=== PATIENT | female | born 1970 | race Caucasian/White ===

== ENCOUNTER 2019-05-30 21:57 | Emergency (ER) | payer SELFPAY ==
[~2019-05-30] VITALS: Ht 157 cm; Wt 133.0 kg
[~2019-05-30 21:57] MED LIST: ATOR20TA66 PO; CEPH500C PO; CPR250T PO; CPR500T PO; CYCL10TA9; DULO30CA; DULO60CA6; FURO40TA4 PO; GBPN600T PO; HUM100VI4 SQ; IBP600T1 PO; INSU100I10 SQ; INSU100I14 SC; IPRA0.2S18 IH; IPRA4AER IH; LEVA0.31; LORA10TA7 PO; LURA40TA PO; LURA80TA PO; MECL25TA56 PO; MELO7.5T PO; NAPR-243; NF-CIPROHC RIGHT EAR; NF-FLON16G; NITR-65 PO; NITR100C3 PO; NORT50CA3 PO; NYST1POW15 TOP; OLN10T PO; OXCA150T PO; OXYC-281; OXYC20TA63; PARO20TA4 PO; POTA10TA36 PO; RT-COMBINH; SUMA10PO PO; SUMA1TAB; TIOT18CA IH; TMZP15C PO; TOPI100T PO; TRAM50TA2 PO; TRZ100T PO; WRF10T PO; gabapentin; risperdal; warfarin; zyprexa
[2019-05-30 22:46] LABS: CLARITY,URINE CEAR; COLOR,URINE YELLOW; GLUCOSE, URINE (UA) NEGATIVE (NEGATIVE); KETONES,URINE NEGATIVE (NEGATIVE); PROTEIN,URINE NEGATIVE (NEGATIVE)
[2019-05-30 22:47] LABS: AMORPHOUS SEDIMENT,UR FEW AMOR PHOSPHATE /LPF; BACTERIA,URINE FEW /HPF; BILIRUBIN,URINE NEGATIVE (NEGATIVE); LEUKOCYTE ESTERASE ,URINE NEGATIVE (NEGATIVE); NITRITE,URINE NEGATIVE (NEGATIVE); WBC,URINE RARE /HPF
--- NOTE | 2019-05-30 23:25 | ED Back Pain ---
General Chief Complaint: Back Problems Stated Complaint: BACK PAIN Nursing Triage Note: PT COMPLAINING OF LOWER BACK PAIN. PT HAS CHRONIC PAIN AND TOOK OXYCODONE 4 HOURS AGO WITH NO RELIEF Nursing Sepsis Screen: No Definite Risk Source of Information: Patient History of Present Illness Date Seen by Provider: May 30, 2019 Time Seen by Provider: 23:25 Initial Comments 49-year-old female presenting with complaints of increased low back pain. She has chronic low back pain and takes oxycodone 7.5 mg for this. However this was not controlling her pain tonight. She also has been having nausea vomiting and diarrhea in the last 2 days. She was unsure if this is caused a flareup of her symptoms. She does have a history of kidney stones as well. She denies any pain radiating into her legs. She has no new neurologic symptoms such as numbness or weakness in her legs. She's had no loss of bowel or bladder control. Allergies and Home Medications Allergies Coded Allergies: Spinach *RETIRED-08/25/10 (Unverified Allergy, Mild, 08/01/09) doxycycline (Unverified Allergy, Mild, nauseated, 08/01/09) Home Medications Atorvastatin 20 Mg Tablet, 20 MG PO HS, (Reported) Cephalexin Monohydrate 500 Mg Capsule, 1 EACH PO QID, (Reported) Ciprofloxacin 500 Mg Tablet, 1 TAB PO BID FOR INFECTION Prescribed by: BRAULIO NASH on 04/24/132100 Furosemide 40 Mg Tablet, 1 EACH PO BID, (Reported) PT TAKES 40MG PO BID Gabapentin 600 Mg Tab, 600 MG PO QID, (Reported) Hum Insulin Nph/Reg Insulin Hm 10 Ml Vial, 15 UNITS SQ TID, (Reported) Insulin Glargine,Hum.rec.anlog 300 Unit/3 Ml Insuln.pen, 10 UNITS SQ HS Prescribed by: NNEKA ROBINS on 12/14/12 1141 Ipratropium [place] 0.5 Mg/2.5 Ml Nebu, 0.5 MG IH Q6H PRN, (Reported) Ipratropium/Albuterol Sulfate 4 Gm Aer.w.adap, 1 PUFF IH QID, (Reported) Loratadine 10 Mg Tablet, 10 MG PO DAILY, (Reported) Lurasidone Hcl 80 Mg Tablet, 80 MG PO HS, (Reported) Lurasidone Hcl 40 Mg Tablet, 40 MG PO DAILY, (Reported) TAKES IN AM DAILY Meclizine Hcl 25 Mg Tablet, 1 EACH PO TID PRN, (Reported) Meloxicam 7.5 Mg Tablet, 7.5 MG PO DAILY, (Reported) Nitrofurantoin/Nitrofuran Mac 100 Mg Capsule, 100 MG PO BID Prescribed by: GUALBERTO DOUGHERTY on 04/14/13 175 Nystatin 1 Each Powder.ea., 0 TOP BID PRN SPRINKLE ON AFFECTED AREA Prescribed by: GUALBERTO DOUGHERTY on 04/14/13 175 Olanzapine 10 Mg Tab, 10 MG PO BID PRN for ANXIETY, (Reported) Oxcarbazepine 150 Mg Tablet, 300 MG PO DAILY, (Reported) Oxycodone HCl/Acetaminophen 1 Each Tablet, 1 EACH PO Q4H PRN for PAIN-SEVERE (8- 10) Prescribed by: TASH ALARCON on 05/31/19 0058 Paroxetine Hcl 20 Mg Tablet, 20 MG PO HS, (Reported) Potassium Chloride 10 Meq Tab.prt.sr, 1 EACH PO BID WITH MEALS, (Reported) Sumatriptan 10 Gm Powder, 100 MG PO BID PRN, (Reported) Tiotropium [place] 1 Inh Aerp, 1 CAP IH DAILY, (Reported) 18 MCG CAPS/ONE INHALED DAILY Topiramate 100 Mg Tab, 200 MG PO HS, (Reported) PT TAKES 200MG TWICE DAILY AND 100MG AT NOON Topiramate 100 Mg Tab, 100 MG PO TID, (Reported) Tramadol Hcl 50 Mg Tablet, 100 MG PO Q6H PRN, (Reported) Trazodone Hcl 100 Mg Tab, 200 MG PO HS, (Reported) Warfarin Sodium 10 Mg Tablet, 10 MG PO DAILY@1800 Prescribed by: NNEKA ROBINS on 12/14/12 1141 Patient Home Medication List Home Medication List Reviewed: Yes Review of Systems Constitutional: No chills; fever (subjectively felt hot), malaise EENTM: no symptoms reported Respiratory: cough (chronic smoker's cough), dyspnea on exertion (chronic), short of breath (no more short of breath than normal) Cardiovascular: No chest pain Gastrointestinal: No abdominal pain; diarrhea, nausea, vomiting Genitourinary: no symptoms reported; No incontinence Musculoskeletal: see HPI Skin: no symptoms reported Psychiatric/Neurological: See HPI Past Vcsaaca-Ywhyxz-Fuxvgb Hx Past Med/Social Hx: Reviewed Nursing Past Med/Soc Hx Patient Social History Alcohol Use: Denies Use Recreational Drug Use: No Smoking Status: Current Everyday Smoker Type Used: Cigarettes 2nd Hand Smoke Exposure: Yes Recent Foreign Travel: No Contact w/Someone Who Travel: No Recent Infectious Disease Expo: No Recent Hopitalizations: No Physical Abuse: No Sexual Abuse: No Mistreated: No Fear: No Immunizations Up To Date Date of Pneumonia Vaccine: Dec 14, 2012 Date of Influenza Vaccine: Mar 04, 2013 Past Medical History Surgeries: Yes (HIP, suprapubic catheter) Appendectomy, Gallbladder, Hysterectomy Respiratory: Yes Asthma, Pneumonia, Chronic Bronchitis, Pulmonary Embolism, COPD, Emphysema Cardiac: No Neurological: Yes Neuropathy 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 Disorders: No 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 Sexually Transmitted Disease: No HIV/AIDS: No Genitourinary: Yes Kidney Stones, Neurogenic Bladder, UTI-Chronic Gastrointestinal: Yes Abdominal Hernia, Gastroesophageal Reflux, Chronic Constipation, Irritable Bowel Musculoskeletal: Yes Arthritis, Fibromyalgia, Back Injury, Chronic Back Pain, Fractures, Spasms Endocrine: Yes Diabetes, Insulin dep, Hypothyroidsim HEENT: No Hearing Impairment: Hard of Hearing Cancer: Yes Ovarian Psychosocial: Yes ADD/ADHD, Bipolar, Schizophrenia Integumentary: No Blood Disorders: No Family Medical History No Pertinent Family Hx Physical Exam Vital Signs Vital Signs - First Documented 05/30/19 22:05 Temp 37.1 Pulse 94 Resp 22 B/P (MAP) 150/89 (109) Pulse Ox 96 O2 Delivery Room Air Capillary Refill : Less Than 3 Seconds Height, Weight, BMI Height: '" Weight: 275lbs. oz. 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 Tested Skin: Normal Color, Warm/Dry Progress/Results/Core Measures Results/Orders Lab Results Laboratory Tests Test 05/30/19 10:29 Range/Units Urine Color YELLOW Urine Clarity CEAR Urine pH 7.0 5-9 Urine Specific Luther 1.020 1.016-1.022 Urine Protein NEGATIVE NEGATIVE Urine Glucose (UA) NEGATIVE NEGATIVE Urine Ketones NEGATIVE NEGATIVE Urine Nitrite NEGATIVE NEGATIVE Urine Bilirubin NEGATIVE NEGATIVE Urine Urobilinogen 0.2 < = 1.0 MG/DL Urine Leukocyte Esterase NEGATIVE NEGATIVE Urine RBC (Auto) NEGATIVE NEGATIVE Urine RBC NONE /HPF Urine WBC RARE /HPF Urine Squamous Epithelial Cells 2-5 /HPF Urine Crystals PRESENT H /LPF Urine Amorphous Sediment FEW ALAN PHOSPHATE H /LPF Urine Bacteria FEW H /HPF Urine Casts NONE /LPF Urine Mucus NONE /LPF Urine Culture Indicated NO My Orders Orders - TASH ALARCON MD Ua Culture If Indicated (05/30/19 22:21) Morphine Injection (Morphine Injection (05/30/19 23:40) Ct Abd/Pelvis Wo(Kidney Stone) (05/30/19 23:45) Vital Signs/I&O 05/30/19 05/31/19 22:05 00:55 Temp 37.1 Pulse 94 90 Resp 22 20 B/P (MAP) 150/89 (109) 155/95 Pulse Ox 96 95 O2 Delivery Room Air Room Air Blood Pressure Mean: 109 Progress Progress Note #1: Progress Note Obtain urinalysis to look for signs of infection or blood to indicate that there was a kidney stone or UTI that might be contributing to her low back pain. With her having recent nausea vomiting and diarrhea she may have flared up her back pain from that. Will obtain a CT scan to look for kidney stones or acute change in her lumbar spine to cause her symptoms as well. She states that she does tolerate morphine so will give a dose of 10 mg IM morphine to try and help with her low back pain. Progress Note #2: Time: 00:[address] scan does not show any acute findings per radiology report from [facility] Dr. Marino Jenkins. She had no kidney stone seen. She has no acute change in the Lumbar spine. She has some increased stool in colon but no obstruction or blockage. No acute finding to indicate any pathology to cause her increased exacerbation of low back pain. will increase her med from 7.5 to 10 mg of oxycodone for the next 3 days and have her check back with pcp. If continued symptoms she may need to see pain management for injections or other pain management options Diagnostic Imaging Diagonstic Imaging: CT Plain Films/CT/US/NM/MRI: abdomen, pelvis Comments Impression no acute findings Radiologist: Marino Jenkins MD. Read at 0039 and faxed at 0090 Reviewed: Reviewed [place] Study Departure Impression Primary Impression: Acute exacerbation of chronic low back pain Additional Impression: Nausea, vomiting and diarrhea Disposition: HOME, SELF-CARE Condition: Stable Departure-Patient Inst. Decision time for Depature: 00:53 Referrals: [facility] (PCP/Family) Primary Care Physician Patient Instructions: Low Back Pain (DC), MANAGING YOUR CHRONIC PAIN Add. Discharge Instructions: Try the higher dose of pain medicine for the next day or two and then check with your primary provider Sunday about your symptoms if not improving You may also try alternating ice and heat to your low back to help with inflammation and with your low back pain. If things persist your primary provider may need to refer you to pain management for injections again or to look into other pain management options. All discharge instructions reviewed with patient and/or family. Voiced understanding. Scripts Oxycodone HCl/Acetaminophen (Oxycodone-Acetaminophen 10-325) 1 Each Tablet 1 EACH PO Q4H PRN for PAIN-SEVERE (8-10) MDD 3 for 3 Days, #18 TAB 0 Refills Prov: TASH ALARCON MD 05/31/19 TASH ALARCON MD May 30, 2019 23:25
[2019-05-30] MEDS ORDERED: morphine INJ 10 MG/ML 1ML (SYR OR VIAL) IM STA (23:40)
[2019-05-31 00:55] VITALS: BP 155/95
[2019-05-31] MEDS ORDERED: OXYC-465 PO (00:58)
--- NOTE | 2019-05-31 06:16 | Diagnostic Imaging Report ---
PROCEDURE: CT urinary tract, rule out kidney stone. TECHNIQUE: Multiple contiguous axial images were obtained through the abdomen and pelvis without the use of intravenous contrast. Auto Exposure Controls were utilized during the CT exam to meet ALARA standards for radiation dose reduction. INDICATION: Low back pain. The lung bases are clear. The liver is unremarkable. The gallbladder is surgically absent. No biliary ductal dilatation is seen. The pancreas and spleen are unremarkable. No adrenal mass is detected. Kidneys are without calculi or hydronephrosis. Aorta is non-aneurysmal. There appears to be a filter within the inferior vena cava. The small and large bowel loops are normal caliber. No obstruction is seen. There is no free fluid or fluid collection in the abdomen or pelvis. The bladder is unremarkable. Postsurgical changes bilateral hips are seen. IMPRESSION: Unremarkable noncontrast CT of the abdomen and pelvis. No acute feature is detected. Dictated by: Dictated on workstation # [id number]
== END 2019-05-31 01:01 | disposition home or self-care (01) ==
LOC: EDUNIT# 21:57 → ER FS 22:03
DX: G89.29 Other chronic pain (principal); M54.5 Low back pain; R11.2 Nausea with vomiting, unspecified; R19.7 Diarrhea, unspecified; J43.9 Emphysema, unspecified; E11.40 Type 2 diabetes mellitus with diabetic neuropathy, unspecified; K21.9 Gastro-esophageal reflux disease without esophagitis; K58.9 Irritable bowel syndrome, unspecified; M79.7 Fibromyalgia; E03.9 Hypothyroidism, unspecified; F31.9 Bipolar disorder, unspecified; F90.9 Attention-deficit hyperactivity disorder, unspecified type; F20.9 Schizophrenia, unspecified; F17.210 Nicotine dependence, cigarettes, uncomplicated; Z86.711 Personal history of pulmonary embolism; Z85.43 Personal history of malignant neoplasm of ovary; Z87.442 Personal history of urinary calculi; Z87.440 Personal history of urinary (tract) infections; Z88.1 Allergy status to other antibiotic agents; Z79.4 Long term (current) use of insulin; Z90.49 Acquired absence of other specified parts of digestive tract; Z90.710 Acquired absence of both cervix and uterus
CPT/HCPCS: 74176; 81000; 96372

== ENCOUNTER 2019-07-15 21:46 | Emergency (ER) | payer SELFPAY ==
[~2019-07-15] VITALS: Ht 157.4 cm; Wt 144.0 kg
[~2019-07-15 21:46] MED LIST changes: +OXYC-465 PO
[2019-07-15] MEDS ORDERED: ONDANSETRON 4 MG (ZOFRAN) ORAL DISSOLVE TAB PO STA (21:53)
--- NOTE | 2019-07-15 21:56 | ED Headache ---
General Chief Complaint: General Problems/Pain Stated Complaint: HAND/ARM/FEET PAIN,HEADACHE Source: patient Exam Limitations: no limitations History of Present Illness Date Seen by Provider: Jul 15, 2019 Time Seen by Provider: 21:50 Initial Comments The patient is a morbidly obese 49-year-old female who presents for evaluation of headache over the last 6 hours or so. She states that she gets frequent headaches chronically. She takes warfarin for a history of blood clots and denies any recent head injury. She is also complaining of acute on chronic hand and foot pain which she describes as a neuropathy which she chronically has. She took a oxycodone but states it did not help very much for her headache. She brandon es this chronically for back pain. She denies fevers or chills, neck pain or neck stiffness, vision changes, focal weakness or numbness, chest pain or shortness of breath, abdominal or back pain, palpitations, or syncope. She is alert and oriented 4, calm, and appears to be in no distress this time. Timing/Duration: 4-6 hours Severity/Quality: moderate Location: frontal Prior Headaches/Recent Trauma: frequent headaches, chronic headaches Associated Symptoms: denies symptoms Allergies and Home Medications Allergies Coded Allergies: Spinach *RETIRED-08/25/10 (Unverified Allergy, Mild, 08/01/09) doxycycline (Unverified Allergy, Mild, nauseated, 08/01/09) Home Medications Atorvastatin 20 Mg Tablet, 20 MG PO HS, (Reported) Cephalexin Monohydrate 500 Mg Capsule, 1 EACH PO QID, (Reported) Ciprofloxacin 500 Mg Tablet, 1 TAB PO BID FOR INFECTION Prescribed by: BRAULIO NASH on 04/24/132100 Furosemide 40 Mg Tablet, 1 EACH PO BID, (Reported) PT TAKES 40MG PO BID Gabapentin 600 Mg Tab, 600 MG PO QID, (Reported) Hum Insulin Nph/Reg Insulin Hm 10 Ml Vial, 15 UNITS SQ TID, (Reported) Insulin Glargine,Hum.rec.anlog 300 Unit/3 Ml Insuln.pen, 10 UNITS SQ HS Prescribed by: NNEKA ROBINS on 12/14/12 1141 Ipratropium [place] 0.5 Mg/2.5 Ml Nebu, 0.5 MG IH Q6H PRN, (Reported) Ipratropium/Albuterol Sulfate 4 Gm Aer.w.adap, 1 PUFF IH QID, (Reported) Loratadine 10 Mg Tablet, 10 MG PO DAILY, (Reported) Lurasidone Hcl 80 Mg Tablet, 80 MG PO HS, (Reported) Lurasidone Hcl 40 Mg Tablet, 40 MG PO DAILY, (Reported) TAKES IN AM DAILY Meclizine Hcl 25 Mg Tablet, 1 EACH PO TID PRN, (Reported) Meloxicam 7.5 Mg Tablet, 7.5 MG PO DAILY, (Reported) Nitrofurantoin/Nitrofuran Mac 100 Mg Capsule, 100 MG PO BID Prescribed by: GUALBERTO DOUGHERTY on 04/14/13 175 Nystatin 1 Each Powder.ea., 0 TOP BID PRN SPRINKLE ON AFFECTED AREA Prescribed by: GUALBERTO DOUGHERTY on 04/14/13 175 Olanzapine 10 Mg Tab, 10 MG PO BID PRN for ANXIETY, (Reported) Oxcarbazepine 150 Mg Tablet, 300 MG PO DAILY, (Reported) Oxycodone HCl/Acetaminophen 1 Each Tablet, 1 EACH PO Q4H PRN for PAIN-SEVERE (8- 10) Prescribed by: TASH ALARCON on 05/31/19 0058 Paroxetine Hcl 20 Mg Tablet, 20 MG PO HS, (Reported) Potassium Chloride 10 Meq Tab.prt.sr, 1 EACH PO BID WITH MEALS, (Reported) Sumatriptan 10 Gm Powder, 100 MG PO BID PRN, (Reported) Tiotropium [place] 1 Inh Aerp, 1 CAP IH DAILY, (Reported) 18 MCG CAPS/ONE INHALED DAILY Topiramate 100 Mg Tab, 200 MG PO HS, (Reported) PT TAKES 200MG TWICE DAILY AND 100MG AT NOON Topiramate 100 Mg Tab, 100 MG PO TID, (Reported) Tramadol Hcl 50 Mg Tablet, 100 MG PO Q6H PRN, (Reported) Trazodone Hcl 100 Mg Tab, 200 MG PO HS, (Reported) Warfarin Sodium 10 Mg Tablet, 10 MG PO DAILY@1800 Prescribed by: NNEKA ROBINS on 12/14/12 1141 Patient Home Medication List Home Medication List Reviewed: Yes Review of Systems Review of Systems Constitutional: dizziness Eyes: No Symptoms Reported Ears, Nose, Mouth, Throat: no symptoms reported Respiratory: no symptoms reported Cardiovascular: no symptoms reported Gastrointestinal: no symptoms reported Genitourinary: no symptoms reported Musculoskeletal: no symptoms reported Skin: no symptoms reported Psychiatric/Neurological: Headache All Other Systems Reviewed Negative Unless Noted: Yes Past Kxxfglc-Nximem-Hzwoyp Hx Past Med/Social Hx: Reviewed Nursing Past Med/Soc Hx Patient Social History Type Used: Cigarettes 2nd Hand Smoke Exposure: Yes Recent Foreign Travel: No Contact w/Someone Who Travel: No Recent Hopitalizations: No Immunizations Up To Date Date of Pneumonia Vaccine: Dec 14, 2012 Date of Influenza Vaccine: Mar 04, 2013 Past Medical History Surgeries: Yes (HIP, suprapubic catheter) Appendectomy, Gallbladder, Hysterectomy Respiratory: Yes Asthma, Pneumonia, Chronic Bronchitis, Pulmonary Embolism, COPD, Emphysema Cardiac: No Neurological: Yes Neuropathy 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 Disorders: No 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 Sexually Transmitted Disease: No HIV/AIDS: No Genitourinary: Yes Kidney Stones, Neurogenic Bladder, UTI-Chronic Gastrointestinal: Yes Abdominal Hernia, Gastroesophageal Reflux, Chronic Constipation, Irritable Bowel Musculoskeletal: Yes Arthritis, Fibromyalgia, Back Injury, Chronic Back Pain, Fractures, Spasms Endocrine: Yes Diabetes, Insulin dep, Hypothyroidsim HEENT: No Hearing Impairment: Hard of Hearing Cancer: Yes Ovarian Psychosocial: Yes ADD/ADHD, Bipolar, Schizophrenia Integumentary: No Blood Disorders: No Family Medical History No Pertinent Family Hx Physical Exam Vital Signs Vital Signs - First Documented 07/15/19 21:52 Temp 36.6 Pulse 111 Resp 20 B/P (MAP) 163/103 (123) Pulse Ox 95 O2 Delivery Room Air Capillary Refill : Height, Weight, BMI Height: '" Weight: 275lbs. oz. 124.616491yh; 53.00 BMI Method:Stated General Appearance: WD/WN, no apparent distress, obese HEENT: PERRL/EOMI, pharynx normal Neck: non-tender, full range of motion, supple Cardiovascular: regular rate, rhythm, no edema, no JVD Respiratory: lungs clear, normal breath sounds, no respiratory distress, no accessory muscle use Gastrointestinal: normal bowel sounds, non tender, soft Extremities: normal range of motion, non-tender, normal inspection, no pedal edema Psychiatric: alert, oriented x 3 Crainal Nerves: normal hearing, normal speech, PERRL Motor/Sensory: no motor deficit, no sensory deficit Skin: normal color, warm/dry Progress/Results/Core Measures Results/Orders Lab Results Laboratory Tests Test 07/15/19 22:23 07/15/19 22:25 Range/Units Glucometer 184 H 70-110 MG/DL My Orders Orders - KAYLEE GIVENS DO Ct Head Wo (07/15/19 21:52) Meclizine Tablet (Antivert Tablet) (07/15/19 22:00) Ondansetron Oral Dissolve Tab (Zofran (07/15/19 21:53) Diphenhydramine Tablet (Benadryl Tablet) (07/15/19 22:00) Protime With Inr (07/15/19 21:56) Accucheck Stat ONCE (07/15/19 21:56) Medications Given in ED Current Medications Medications Dose Ordered Sig/Kurtis Route Start Time Stop Time Status Last Admin Dose Admin Diphenhydramine HCl 25 mg ONCE ONCE PO 07/15/19 22:00 07/15/19 22:01 DC 07/15/19 21:58 25 MG Meclizine HCl 25 mg ONCE ONCE PO 07/15/19 22:00 07/15/19 22:01 DC 07/15/19 21:59 25 MG Vital Signs/I&O 07/15/19 21:52 Temp 36.6 Pulse 111 Resp 20 B/P (MAP) 163/103 (123) Pulse Ox 95 O2 Delivery Room Air Progress Progress Note : Progress Note @2245 - patient informed of lab and imaging results which are acutely unremarkable. Workup today fails reveal any emergent pathology. The patient sta bryce that she is feeling much better and is asking to be discharged home. She is stable for discharge at this time. Departure Impression Primary Impression: Headache Disposition: 01 HOME, SELF-CARE Condition: Stable Departure-Patient Inst. Referrals: [facility] (PCP/Family) Primary Care Physician Patient Instructions: Headache, Adult, Chronic Pain (DC) Add. Discharge Instructions: Follow-up with your doctor in the next 2-3 days. Return to the emergency Department immediately for new or worsening symptoms. KAYLEE GIVENS DO Jul 15, 2019 21:56
[2019-07-15] MEDS ORDERED: diphenhydrAMINE 25 MG TAB (BENADRYL) PO ONE (22:00)
[2019-07-15] MEDS ORDERED: MECLIZINE 25 MG (ANTIVERT) TAB PO ONE (22:00)
[2019-07-15 22:52] LABS: PROTHROMBIN TIME PATIENT 13.5 SEC (12.2-14.7)
[2019-07-15 22:54] VITALS: BP 163/103
--- NOTE | 2019-07-16 07:36 | Diagnostic Imaging Report ---
PROCEDURE: CT head without contrast. TECHNIQUE: Multiple contiguous axial images were obtained through the brain without the use of intravenous contrast. Auto Exposure Controls were utilized during the CT exam to meet ALARA standards for radiation dose reduction. INDICATION: Decreased level of consciousness. Comparison with 12/13/2012. FINDINGS: The ventricles and cortical gyral pattern are normal. There is no intracranial hemorrhage or mass effect. Basal cisterns are clear. Pituitary is not enlarged. Mastoid air cells are clear. Paranasal sinuses clear where visualized. No calvarial fractures. IMPRESSION: Negative CT head without contrast. These findings are concordant with the preliminary report. Dictated by: Dictated on workstation # [id number]
--- OUTSIDE RECORDS SUMMARY | 2019-07-25 20:20 | XMS REPORT | Clinical Summary ---
Author Author [facility] Organization [facility] Address Unknown Phone Unavailable Care Team Providers Care Cut Lace Machine Operator Name Role Phone PP Unavailable Allergies No Known Allergies Medications End Date Status Medication Sig Dispensed Refills Start Date Active tiotropium (SPIRIVA Inhale 18 mcg 0 HANDIHALER) 18 MCG into the inhalation capsule lungs daily. Active loratadine (CLARITIN) 10 Take 10 mg by 0 MG tablet mouth nightly as needed. Active temazepam (RESTORIL) 15 Take 30 mg by 0 MG capsule mouth nightly. Active potassium chloride Take 10 mEq 0 (K-DUR,KLOR-CON) 10 MEQ by mouth 2 tablet (two) times daily. Active gabapentin (NEURONTIN) Take 600 mg 0 600 MG tablet by mouth 4 (four) times daily. Active ibuprofen (ADVIL,MOTRIN) Take 800 mg 0 800 MG tablet by mouth 3 (three) times daily. Active sumatriptan (IMITREX) 100 Take 100 mg 0 MG tabletIndications: by mouth as Migraine needed. May repeat dose 2 hours after initial dose. NTE 2 tablets in 24 hours Indications: Migraine Headache Active warfarin (COUMADIN) 5 MG Take 10 mg by 0 06/23 tablet mouth 2 nightly. Take 10 mg at bedtime on days 1 and 2 and 1 tablet at bedtime on day 3 and then repeat the cycle. Active warfarin (COUMADIN) 5 MG Take 5 mg by 0 tablet mouth nightly as needed. 5 mg every third day, 10 mg on the other two days. Needs HS dose for 06/22/11 now Active atorvastatin (LIPITOR) 20 Take 20 mg by 0 MG tablet mouth nightly. Active LANTUS, insulin glargine, Inject 20 0 (LANTUS) 100 UNIT/ML Units into injection the skin every morning before breakfast. Active LANTUS, insulin glargine, Inject 40 0 (LANTUS) 100 UNIT/ML Units into injection the skin nightly. Active tramadol (ULTRAM) 50 MG Take 100 mg 0 tabletIndications: Pain by mouth every 8 (eight) hours as needed. Indications: Pain Active oxcarbazepine (TRILEPTAL) Take 150 mg 0 150 MG tablet by mouth every morning. Active furosemide (LASIX) 40 MG Take 40 mg by 0 tablet mouth morning and 7 hours later. Active Ipratropium-Albuterol Inhale 1 vial 0 0.5-2.5 (3) MG/3ML into the SOLNIndications: lungs every 6 Shortness of Breath (six) hours (Inactive) as needed. Per nebulizer Indications: Shortness of Breath (Inactive) Active olanzapine zydis Place 1 30 tablet 0 (ZYPREXA) 10 MG tablet under 2 disintegrating tablet the tongue 2 (two) times daily as needed for 30 doses. Active Problems Problem Noted Date Schizoaffective disorder-chronic with exacerbation 0 06/23/2011 Amphetamine dependence 06/23/2011 PTSD (post-traumatic stress disorder) 06/23/2011 COPD, moderate 06/23/2011 DVT prophylaxis 06/23/2011 Resolved Problems Problem Noted Date Resolved Date Suicidal ideation 06/23/2011 06/26/2011 Immunizations Name Administration Dates Next Due Influenza IIV3 PFree 05/04/2011 Pneumococcal 06/04/2006 Polysaccharide (23-valent) Family History Medical History Relation Name Comments Diabetes Maternal Grandmother Heart disease Maternal Grandmother Cancer Mother Heart disease Mother Relation Name Status Comments Father Maternal Grandmother Mother Social History Date Tobacco Use Types Packs/Day Years Used Current Every Day Smoker 2 30 Tobacco Cessation: Ready to Quit: No Drinks/Week oz/Week Comments Alcohol Use No Control Partners Comments Sexually Active Male Never Sex Assigned at Date Recorded Not on file Industry Job Start Date Occupation Not on file Not on file Not on file Travel End Travel History Travel Start No recent travel history available. Last Filed Vital Signs Reading Time Taken Comments Vital Sign 114/1 06/26/2011 6:40 AM [employer]LTRY [employer] Blood Pressure 68 06/26/2011 6:40 AM [employer] Pulse 36.7 C (98 F) 06/26/2011 6:40 AM [employer] Temperature 20 06/26/2011 6:40 AM POULTRY CLE[employer]ER Respiratory Rate - - Oxygen Saturation - - Inhaled Oxygen Concentration - - Weight 158.8 cm (5' 2.5") 06/23/2011 12:03 AM [employer]LTRY CLE[employer]ER Height - - Body Mass Index Plan of Treatment Health Maintenance Due Date Last Done Comments Varicella Vaccines (1 of 1973 2 - 2-dose childhood series) DTaP,Tdap,and Td Vaccines 1983 (1 - Tdap) MMR Vaccines-Adult 1991 Cervical Cancer Screening 1993 Influenza Vaccine (#1) 2019 05/04/2011 Pneumo-Vaccine: Peds (0-5 Aged Out 06/04/2006 No l onger eligible based on patient's age to Yrs) & At-Risk Patients complete this topic (6-64 Yrs) Results Not on filefrom Last 3 Months
--- OUTSIDE RECORDS SUMMARY | 2019-07-25 20:20 | XMS REPORT | Clinical Summary ---
Author Author [facility] Organization [facility] Address Unknown Phone Unavailable Care Team Providers Care Linoleum Layer Name Role Phone Unverified, Unverified PCP Unavailable Vincenzo White MD Unavailable Larry Riggs MD Unavailable Source Comments Some departments are not documenting in the electronic medical record. If you d o not see the information that you expected, contact Release of Information in [facility] Information Management department at [phone] for further assistan ce in locating additional records.[facility] Allergies Not on File Medications Not on file Active Problems Problem Noted Date Lumbago 01/30/2008 Pain in limb 06/17/2007 Social History Date Tobacco Use Types Packs/Day Years Used Never Assessed Sex Assigned at Date Recorded Not on file Industry Job Start Date Occupation Not on file Not on file Not on file Travel End Travel History Travel Start No recent travel history available. Last Filed Vital Signs Not on file Plan of Treatment Health Maintenance Due Date Last Done Comments DTAP/TDAP VACCINES (1 - 1983 Tdap) HIV SCREENING 1987 PHYSICAL (COMPREHENSIVE) 1990 EXAM CERVICAL CANCER SCREENING 2002 BREAST CANCER SCREENING 2012 INFLUENZA VACCINE 01/02/2019 Results Not on filefrom Last 3 Months
--- OUTSIDE RECORDS SUMMARY | 2019-07-25 20:21 | XMS REPORT ---
Author Author Ayden Payne Doctor Organization [facility] Address Unknown Phone Unavailable Care Team Providers Care Metal Handler Name Role Phone Migration, Doctor Unavailable Unavailable PROBLEMS Type Condition ICD9-CM Code ZUR65-KG Code Onset Dates Condition S tatus SNOMED Code Problem Personal history of fall V15.88 Activ e 146614852 Problem Routine general medical examination at [facility] y V70.0 Active 483967888 Problem Personal history of venous thrombosis and embolism V12.51 Active 485106926 Problem Status of other artificial opening of urinary tract V44.6 Active Problem Suicide and self-inflicted p oisoning by unspecified drug or medicinal substance E950.5 Active Problem Other dyspnea and respiratory abnormalities 786.09 Active 560047153 Problem Dysuria 788.1 Active 58014606 Problem Congestive heart failure, unspecified 428.0 Active 47502403 Problem Other screening breast examination V76.19 Active 42896745 Problem Unspecified hypotension 458.9 Active 92897302 Problem Other specified disorders of bladder 596.89 Active 20943401 Problem Encounter for long-term (current) use of other medications V58.69 Active 581990084 Problem Counseling on substance use and abuse V65.42 Active 225965958 Problem Unspecified myalgia and myositis 729.1 Active 381289251 Problem Pain in soft tissues of limb 729.5 A ctive 55590646 Problem Urinary tract infection, site not specified 599.0 Active 88117470 Problem Pain in joint, lower leg 719.46 Activ e 046292572 Problem Chronic airway obstruction, not elsewhere classified 496 Active 37176102 Problem Neurogenic bladder, NOS 596.54 Active 371976791 Problem Acute sinusitis, unspecified 461.9 A ctive 21498229 Problem Personal history of pulmonary embolism V12.55 Active 193400682 Problem Acute bronchitis 466.0 Active 105 64360 Problem Unspecified hearing loss 389.9 Activ e 00006473 Problem Unspecified otalgia 388.70 Active 22666057 Problem Unspecified hereditary and idiopathic peripheral neuropath y 356.9 Active 043442928 Problem Other and unspecified hyperlipidemia 272.4 Active 34412649 Problem Altered mental status 780.97 Active 950664928 Problem Diabetes mellitus without me ntion of complication, type II or unspecified type, not stated as uncontrolled 250.00 Active 763453214 Problem Shortness of breath 786.05 Active 851842286 Problem Other malaise and fatigue 780.79 Acti ve 708267615 Problem Other chronic pain 338.29 Active 8 0170281 Problem Nondependent tobacco use disorder 305.1 Active 463828594 Problem Amphetamine and other psychostimulant de pendence, 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 Active Problem Obesity, unspecified 278.00 Active 639208790 ALLERGIES No Information ENCOUNTERS Encounter Location Date Diagnosis [facility] [address] [address] Sep, [facility] [address] [address] Sep, [facility] [address] [address] Aug, [facility] [address] [address] Aug, [facility] [address] [address] Aug, [facility] [address] [address] Aug, [facility] [address] [address] Aug, [facility] [address] [address] Aug, [facility] [address] [address] Jul, [facility] [address] [address] Jul, [facility] [address] [address] Jul, [facility] [address] [id number] [facility] [address] Jul, [facility] [place] [facility] [address] [facility] [id number] [place] [address] Jul, [facility] [place] [facility] [address] [id number] [place] [address] Jul, [facility] [place] [facility] [address] [id number] [place] [address] Jul, [facility] [place] [facility] [address] [id number] [place] [address] Jul, [facility] [place] [facility] [address] [id number] [place] [address] Jul, [facility] [place] [facility] [address] [id number] [place] [address] Jun, [facility] [place] [facility] [address] [id number] [place] [address] Jun, [facility] [place] [facility] [address] [id number] [place] [address] Jun, [facility] [place] [facility] [address] [id number] [place] [address] Jun, [facility] [place] [facility] [address] [id number] [place] [address] Jun, [facility] [place] [facility] [address] [id number] [place] [address] Jun, [facility] [place] [facility] [address] [id number] [place] [address] Jun, [facility] [place] [facility] [address] [id number] [place] [address] Jun, [facility] [place] [facility] [address] [id number] [place] [address] Jun, [facility] [place] [facility] [address] [id number] [place] [address] Jun, [facility] [place] [facility] [address] [id number] [place] [address] 30 May, 2014 [facility] [place] [facility] [address] [id number] [place] [address] May, [facility] [place] [facility] [address] [id number] [place] [address] May, [facility] [place] [facility] [address] [id number] [place] [address] May, [facility] [place] [facility] [address] [id number] [place] [address] May, [facility] [place] [facility] [address] [id number] [place] [address] May, [facility] [place] [facility] [address] [id number] [place] [address] May, [facility] [place] [facility] [address] [id number] [place] [address] May, [facility] [place] [facility] [address] [id number] [place] [address] 18 May, 2014 [facility] [place] [facility] [address] [id number] [place] [address] 15 May, 2014 [facility] [place] [facility] [address] [id number] [place] [address] May, [facility] [place] [facility] [address] [id number] [place] [address] Apr, [facility] [place] [facility] [address] [id number] [place] [address] Apr, [facility] [place] [facility] [address] [id number] [place] [address] Apr, [facility] [place] [facility] [address] [id number] [place] [address] Apr, [facility] [place] [facility] [address] [id number] [place] [address] Mar, [facility] [place] [facility] [address] [id number] [place] [address] Mar, [facility] [place] [facility] [address] [id number] [place] [address] Mar, [facility] [place] [facility] [address] [id number] [place] [address] Mar, [facility] [place] [facility] [address] [facility] [id number] [place] [address] Feb, [facility] [place] [facility] [address] [id number] [place] [address] Feb, [facility] [place] [facility] [address] [id number] [place] [address] Feb, [facility] [place] [facility] [address] [id number] [place] [address] Feb, [facility] [place] [facility] [address] [id number] [place] [address] Feb, [facility] [place] [facility] [address] [id number] [place] [address] Feb, [facility] [place] [facility] [address] [id number] [place] [address] Jan, [facility] [place] [facility] [address] [id number] [place] [address] Jan, [facility] [place] [facility] [address] [id number] [place] [address] Jan, [facility] [place] [facility] [address] [id number] [place] [address] Jan, [facility] [place] [facility] [address] [id number] [place] [address] Jan, [facility] [place] [facility] [address] [id number] [place] [address] Jan, [facility] [place] [facility] [address] [id number] [place] [address] Dec, [facility] [place] [facility] [address] [id number] [place] [address] Dec, [facility] [place] [facility] [address] [id number] [place] [address] Nov, [facility] [place] [facility] [address] [id number] [place] [address] Nov, [facility] [place] [facility] [address] [id number] [place] [address] Nov, [facility] [place] [facility] [address] [id number] [place] [address] Nov, [facility] [place] [facility] [address] [id number] [place] [address] Nov, [facility] [place] [facility] [address] [id number] [place] [address] Nov, [facility] [place] [facility] [address] [id number] [place] [address] Nov, [facility] [place] [facility] [address] [id number] [place] [address] October, [facility] [place] [facility] [address] [id number] [place] [address] October, [facility] [place] [facility] [address] [id number] [place] [address] Sep, [facility] [place] [facility] [address] [id number] [place] [address] Sep, [facility] [place] [facility] [address] [id number] [place] [address] Sep, [facility] [place] [facility] [address] [id number] [place] [address] Sep, [facility] [place] [facility] [address] [id number] [place] [address] 17 Sep, 2013 [facility] [place] [facility] [address] [facility] [id number] [place] [address] 16 Sep, 2013 [facility] [place] [facility] [address] [id number] [place] [address] Sep, [facility] [place] [facility] [address] [id number] [place] [address] Sep, [facility] [place] [facility] [address] [id number] [place] [address] 16 Sep, 2013 [facility] [place] [facility] [address] [facility] [id number] [place] [address] 14 Sep, 2013 [facility] [place] [facility] [address] [facility] [id number] [place] [address] 14 Sep, 2013 [facility] [place] [facility] [address] [facility] [id number] [place] [address] Sep, [facility] [place] [facility] [address] [facility] [id number] [place] [address] Sep, [facility] [place] [facility] [address] [facility] [id number] [place] [address] 08 Sep, 2013 [facility] [place] [facility] [address] [facility] [id number] [place] [address] Sep, [facility] [place] [facility] [address] [id number] [place] [address] 24 Aug, 2013 [facility] [place] [facility] [address] [id number] [place] [address] 24 Aug, 2013 [facility] [place] [facility] [address] [facility] [id number] [place] [address] 24 Aug, 2013 [facility] [place] [facility] [address] [id number] [place] [address] Aug, [facility] [place] [facility] [address] [id number] [place] [address] Aug, [facility] [place] [facility] [address] [id number] [place] [address] Aug, [facility] [place] [facility] [address] [facility] [id number] [place] [address] Aug, [facility] [place] [facility] [address] [facility] [id number] [place] [address] Aug, [facility] [place] [facility] [address] [facility] [id number] [place] [address] Aug, [facility] [place] [facility] [address] [id number] [place] [address] Aug, [facility] [place] [facility] [address] [id number] [place] [address] Jun, [facility] [place] [facility] [address] [id number] [place] [address] Jun, [facility] [place] [facility] [address] [id number] [place] [address] Jun, [facility] [place] [facility] [address] [id number] [place] [address] Jun, [facility] [place] [facility] [address] [id number] [place] [address] Jun, [facility] [place] [facility] [address] [facility] [id number] [place] [address] Jun, [facility] [place] [facility] [address] [id number] [place] [address] Jun, [facility] [place] [facility] [address] [id number] [place] [address] Jun, [facility] [place] [facility] [address] [id number] [place] [address] Jun, [facility] [place] [facility] [address] [id number] [place] [address] Jun, [facility] [place] [facility] [address] [id number] [place] [address] Jun, [facility] [place] [facility] [address] [id number] [place] [address] Jun, [facility] [place] [facility] [address] [id number] [place] [address] Apr, [facility] [place] [facility] [address] [id number] [place] [address] Apr, [facility] [place] [facility] [address] [id number] [place] [address] Jan, [facility] [place] [facility] [address] [id number] [place] [address] Jan, [facility] [place] [facility] [address] [id number] [place] [address] Jan, [facility] [place] [facility] [address] [id number] [place] [address] Jan, [facility] [address] [id number] [place] [address] Jan, [facility] [address] [id number] [place] [address] Jan, [facility] [address] [id number] [place] [address] Jan, [facility] [address] [place] [id number] Jan, [facility] [address] [id number] [place] [address] Dec, [facility] [id number] [place] [address] Dec, [facility] [id number] [place] [address] Dec, [facility] [id number] [place] [address] Dec, [facility] [address] [id number] [place] [address] Dec, [facility] [address] [id number] [place] [address] Dec, [facility] [address] [id number] [place] [address] Dec, [facility] [address] [id number] [place] [address] Nov, [facility] [address] [id number] [place] [address] Nov, IMMUNIZATIONS No Known Immunizations SOCIAL HISTORY Never Assessed REASON FOR VISIT PLAN OF CARE VITAL SIGNS MEDICATIONS Unknown Medications RESULTS No Results PROCEDURES No Known procedures INSTRUCTIONS MEDICATIONS ADMINISTERED No Known Medications
--- OUTSIDE RECORDS SUMMARY | 2019-07-25 20:21 | XMS REPORT ---
Author Author Ayden Payne Doctor Organization [facility] Address Unknown Phone Unavailable Care Team Providers Care Bed And Breakfast Operator Name Role Phone Migration, Doctor Unavailable Unavailable PROBLEMS Type Condition ICD9-CM Code PKU34-CO Code Onset Dates Condition S tatus SNOMED Code Problem Personal history of fall V15.88 Activ e 478171126 Problem Routine general medical examination at [facility] y V70.0 Active 935968390 Problem Personal history of venous thrombosis and embolism V12.51 Active 021853626 Problem Status of other artificial opening of urinary tract V44.6 Active Problem Suicide and self-inflicted p oisoning by unspecified drug or medicinal substance E950.5 Active Problem Other dyspnea and respiratory abnormalities 786.09 Active 393701501 Problem Dysuria 788.1 Active 79074097 Problem Congestive heart failure, unspecified 428.0 Active 80690960 Problem Other screening breast examination V76.19 Active 42344957 Problem Unspecified hypotension 458.9 Active 86573285 Problem Other specified disorders of bladder 596.89 Active 09464886 Problem Encounter for long-term (current) use of other medications V58.69 Active 528567243 Problem Counseling on substance use and abuse V65.42 Active 125181405 Problem Unspecified myalgia and myositis 729.1 Active 100521311 Problem Pain in soft tissues of limb 729.5 A ctive 99148563 Problem Urinary tract infection, site not specified 599.0 Active 67567490 Problem Pain in joint, lower leg 719.46 Activ e 404259425 Problem Chronic airway obstruction, not elsewhere classified 496 Active 78558281 Problem Neurogenic bladder, NOS 596.54 Active 907993207 Problem Acute sinusitis, unspecified 461.9 A ctive 89839126 Problem Personal history of pulmonary embolism V12.55 Active 329639362 Problem Acute bronchitis 466.0 Active 105 72519 Problem Unspecified hearing loss 389.9 Activ e 00065050 Problem Unspecified otalgia 388.70 Active 33333887 Problem Unspecified hereditary and idiopathic peripheral neuropath y 356.9 Active 402294902 Problem Other and unspecified hyperlipidemia 272.4 Active 48914260 Problem Altered mental status 780.97 Active 458444642 Problem Diabetes mellitus without me ntion of complication, type II or unspecified type, not stated as uncontrolled 250.00 Active 078120198 Problem Shortness of breath 786.05 Active 989088596 Problem Other malaise and fatigue 780.79 Acti ve 028260264 Problem Other chronic pain 338.29 Active 8 8237847 Problem Nondependent tobacco use disorder 305.1 Active 148935624 Problem Amphetamine and other psychostimulant de pendence, 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 Active Problem Obesity, unspecified 278.00 Active 247486008 ALLERGIES No Information ENCOUNTERS Encounter Location Date Diagnosis [facility] [address] [address] Sep, [facility] [address] [address] Sep, [facility] [address] [address] Aug, [facility] [address] [address] Aug, [facility] [address] [address] Aug, [facility] [address] [address] Aug, [facility] [address] [address] Aug, [facility] [address] [address] Aug, [facility] [address] [address] Jul, [facility] [address] [address] Jul, [facility] [address] [address] Jul, [facility] [address] [id number] [facility] [address] Jul, [facility] [place] [facility] [address] [facility] [id number] [place] [address] Jul, [facility] [place] [facility] [address] [id number] [place] [address] Jul, [facility] [place] [facility] [address] [id number] [place] [address] Jul, [facility] [place] [facility] [address] [id number] [place] [address] Jul, [facility] [place] [facility] [address] [id number] [place] [address] Jul, [facility] [place] [facility] [address] [id number] [place] [address] Jun, [facility] [place] [facility] [address] [id number] [place] [address] Jun, [facility] [place] [facility] [address] [id number] [place] [address] Jun, [facility] [place] [facility] [address] [id number] [place] [address] Jun, [facility] [place] [facility] [address] [id number] [place] [address] Jun, [facility] [place] [facility] [address] [id number] [place] [address] Jun, [facility] [place] [facility] [address] [id number] [place] [address] Jun, [facility] [place] [facility] [address] [id number] [place] [address] Jun, [facility] [place] [facility] [address] [id number] [place] [address] Jun, [facility] [place] [facility] [address] [id number] [place] [address] Jun, [facility] [place] [facility] [address] [id number] [place] [address] 30 May, 2014 [facility] [place] [facility] [address] [id number] [place] [address] May, [facility] [place] [facility] [address] [id number] [place] [address] May, [facility] [place] [facility] [address] [id number] [place] [address] May, [facility] [place] [facility] [address] [id number] [place] [address] May, [facility] [place] [facility] [address] [id number] [place] [address] May, [facility] [place] [facility] [address] [id number] [place] [address] May, [facility] [place] [facility] [address] [id number] [place] [address] May, [facility] [place] [facility] [address] [id number] [place] [address] 18 May, 2014 [facility] [place] [facility] [address] [id number] [place] [address] 15 May, 2014 [facility] [place] [facility] [address] [id number] [place] [address] May, [facility] [place] [facility] [address] [id number] [place] [address] Apr, [facility] [place] [facility] [address] [id number] [place] [address] Apr, [facility] [place] [facility] [address] [id number] [place] [address] Apr, [facility] [place] [facility] [address] [id number] [place] [address] Apr, [facility] [place] [facility] [address] [id number] [place] [address] Mar, [facility] [place] [facility] [address] [id number] [place] [address] Mar, [facility] [place] [facility] [address] [id number] [place] [address] Mar, [facility] [place] [facility] [address] [id number] [place] [address] Mar, [facility] [place] [facility] [address] [facility] [id number] [place] [address] Feb, [facility] [place] [facility] [address] [id number] [place] [address] Feb, [facility] [place] [facility] [address] [id number] [place] [address] Feb, [facility] [place] [facility] [address] [id number] [place] [address] Feb, [facility] [place] [facility] [address] [id number] [place] [address] Feb, [facility] [place] [facility] [address] [id number] [place] [address] Feb, [facility] [place] [facility] [address] [id number] [place] [address] Jan, [facility] [place] [facility] [address] [id number] [place] [address] Jan, [facility] [place] [facility] [address] [id number] [place] [address] Jan, [facility] [place] [facility] [address] [id number] [place] [address] Jan, [facility] [place] [facility] [address] [id number] [place] [address] Jan, [facility] [place] [facility] [address] [id number] [place] [address] Jan, [facility] [place] [facility] [address] [id number] [place] [address] Dec, [facility] [place] [facility] [address] [id number] [place] [address] Dec, [facility] [place] [facility] [address] [id number] [place] [address] Nov, [facility] [place] [facility] [address] [id number] [place] [address] Nov, [facility] [place] [facility] [address] [id number] [place] [address] Nov, [facility] [place] [facility] [address] [id number] [place] [address] Nov, [facility] [place] [facility] [address] [id number] [place] [address] Nov, [facility] [place] [facility] [address] [id number] [place] [address] Nov, [facility] [place] [facility] [address] [id number] [place] [address] Nov, [facility] [place] [facility] [address] [id number] [place] [address] October, [facility] [place] [facility] [address] [id number] [place] [address] October, [facility] [place] [facility] [address] [id number] [place] [address] Sep, [facility] [place] [facility] [address] [id number] [place] [address] Sep, [facility] [place] [facility] [address] [id number] [place] [address] Sep, [facility] [place] [facility] [address] [id number] [place] [address] Sep, [facility] [place] [facility] [address] [id number] [place] [address] 17 Sep, 2013 [facility] [place] [facility] [address] [facility] [id number] [place] [address] 16 Sep, 2013 [facility] [place] [facility] [address] [id number] [place] [address] Sep, [facility] [place] [facility] [address] [id number] [place] [address] Sep, [facility] [place] [facility] [address] [id number] [place] [address] 16 Sep, 2013 [facility] [place] [facility] [address] [facility] [id number] [facility] [address] 14 Sep, 2013 [facility] [place] [facility] [address] [facility] [id number] [facility] [address] 14 Sep, 2013 [facility] [place] [facility] [address] [facility] [id number] [place] [address] Sep, [facility] [place] [facility] [address] [facility] [id number] [place] [address] Sep, [facility] [place] [facility] [address] [facility] [id number] [facility] [address] 08 Sep, 2013 [facility] [place] [facility] [address] [facility] [id number] [facility] [address] Sep, [facility] [place] [facility] [address] [id number] [place] [address] 24 Aug, 2013 [facility] [place] [facility] [address] [id number] [facility] [address] 24 Aug, 2013 [facility] [place] [facility] [address] [facility] [id number] [place] [address] 24 Aug, 2013 [facility] [place] [facility] [address] [id number] [facility] [address] Aug, [facility] [place] [facility] [address] [id number] [place] [address] Aug, [facility] [place] [facility] [address] [id number] [place] [address] Aug, [facility] [place] [facility] [address] [facility] [id number] [place] [address] Aug, [facility] [place] [facility] [address] [facility] [id number] [place] [address] Aug, [facility] [place] [facility] [address] [facility] [id number] [place] [address] Aug, [facility] [place] [facility] [address] [id number] [place] [address] Aug, [facility] [place] [facility] [address] [id number] [place] [address] Jun, [facility] [place] [facility] [address] [id number] [place] [address] Jun, [facility] [place] [facility] [address] [id number] [place] [address] Jun, [facility] [place] [facility] [address] [id number] [place] [address] Jun, [facility] [place] [facility] [address] [id number] [place] [address] Jun, [facility] [place] [facility] [address] [facility] [id number] [place] [address] Jun, [facility] [place] [facility] [address] [id number] [place] [address] Jun, [facility] [place] [facility] [address] [id number] [place] [address] Jun, [facility] [place] [facility] [address] [id number] [place] [address] Jun, [facility] [place] [facility] [address] [id number] [place] [address] Jun, [facility] [place] [facility] [address] [id number] [place] [address] Jun, [facility] [place] [facility] [address] [id number] [place] [address] Jun, [facility] [place] [facility] [address] [id number] [place] [address] Apr, [facility] [place] [facility] [address] [id number] [place] [address] Apr, [facility] [place] [facility] [address] [id number] [place] [address] Jan, [facility] [place] [facility] [address] [id number] [place] [address] Jan, [facility] [place] [facility] [address] [id number] [place] [address] Jan, [facility] [place] [facility] [address] [id number] [place] [address] Jan, [facility] [address] [id number] [place] [address] Jan, [facility] [address] [id number] [place] [address] Jan, [facility] [address] [id number] [place] [address] Jan, [facility] [address] [place] [id number] Jan, [facility] [address] [id number] [place] [address] Dec, [facility] [address] [id number] [place] [address] Dec, [facility] [address] [id number] [place] [address] Dec, [facility] [address] [id number] [place] [address] Dec, [facility] [address] [id number] [place] [address] Dec, [facility] [address] [id number] [place] [address] Dec, [facility] [address] [id number] [place] [address] Dec, [facility] [address] [id number] [place] [address] Nov, [facility] [address] [id number] [place] [address] Nov, IMMUNIZATIONS No Known Immunizations SOCIAL HISTORY Never Assessed REASON FOR VISIT PLAN OF CARE VITAL SIGNS MEDICATIONS Unknown Medications RESULTS No Results PROCEDURES No Known procedures INSTRUCTIONS MEDICATIONS ADMINISTERED No Known Medications
--- OUTSIDE RECORDS SUMMARY | 2019-07-25 20:21 | XMS REPORT ---
Author Author Ayden Payne Doctor Organization [facility] Address Unknown Phone Unavailable Care Team Providers Care Heel Gouger Name Role Phone Migration, Doctor Unavailable Unavailable PROBLEMS Type Condition ICD9-CM Code [id number] Code Onset Dates Condition S tatus SNOMED Code Problem Personal history of fall V15.88 Activ e 338880318 Problem Routine general medical examination at [facility] y V70.0 Active 082863803 Problem Personal history of venous thrombosis and embolism V12.51 Active 549534651 Problem Status of other artificial opening of urinary tract V44.6 Active Problem Suicide and self-inflicted p oisoning by unspecified drug or medicinal substance E950.5 Active Problem Other dyspnea and respiratory abnormalities 786.09 Active 556970804 Problem Dysuria 788.1 Active 00286420 Problem Congestive heart failure, unspecified 428.0 Active 78700108 Problem Other screening breast examination V76.19 Active 61099455 Problem Unspecified hypotension 458.9 Active 51817273 Problem Other specified disorders of bladder 596.89 Active 25144991 Problem Encounter for long-term (current) use of other medications V58.69 Active 336508057 Problem Counseling on substance use and abuse V65.42 Active 174969363 Problem Unspecified myalgia and myositis 729.1 Active 877569169 Problem Pain in soft tissues of limb 729.5 A ctive 86901100 Problem Urinary tract infection, site not specified 599.0 Active 86846209 Problem Pain in joint, lower leg 719.46 Activ e 887093251 Problem Chronic airway obstruction, not elsewhere classified 496 Active 69111470 Problem Neurogenic bladder, NOS 596.54 Active 133585255 Problem Acute sinusitis, unspecified 461.9 A ctive 48688982 Problem Personal history of pulmonary embolism V12.55 Active 770301045 Problem Acute bronchitis 466.0 Active 105 26938 Problem Unspecified hearing loss 389.9 Activ e 86478979 Problem Unspecified otalgia 388.70 Active 16258215 Problem Unspecified hereditary and idiopathic peripheral neuropath y 356.9 Active 060060512 Problem Other and unspecified hyperlipidemia 272.4 Active 55693101 Problem Altered mental status 780.97 Active 116101037 Problem Diabetes mellitus without me ntion of complication, type II or unspecified type, not stated as uncontrolled 250.00 Active 900511095 Problem Shortness of breath 786.05 Active 095235625 Problem Other malaise and fatigue 780.79 Acti ve 396921914 Problem Other chronic pain 338.29 Active 8 9187110 Problem Nondependent tobacco use disorder 305.1 Active 429382643 Problem Amphetamine and other psychostimulant de pendence, 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 Active Problem Obesity, unspecified 278.00 Active 953967514 ALLERGIES No Information ENCOUNTERS Encounter Location Date Diagnosis [facility] [address] [address] Sep, [facility] [address] [address] Sep, [facility] [address] [address] Aug, [facility] [address] [address] Aug, [facility] [address] [address] Aug, [facility] [address] [address] Aug, [facility] [address] [address] Aug, [facility] [address] [address] Aug, [facility] [address] [address] Jul, [facility] [address] [address] Jul, [facility] [address] [address] Jul, [facility] [address] [id number] [place] [address] Jul, [facility] [place] [facility] [address] [facility] [id number] [place] [address] Jul, [facility] [place] [facility] [address] [id number] [place] [address] Jul, [facility] [place] [facility] [address] [id number] [place] [address] Jul, [facility] [place] [facility] [address] [id number] [place] [address] Jul, [facility] [place] [facility] [address] [id number] [place] [address] Jul, [facility] [place] [facility] [address] [id number] [place] [address] Jun, [facility] [place] [facility] [address] [id number] [place] [address] Jun, [facility] [place] [facility] [address] [id number] [place] [address] Jun, [facility] [place] [facility] [address] [id number] [place] [address] Jun, [facility] [place] [facility] [address] [id number] [place] [address] Jun, [facility] [place] [facility] [address] [id number] [place] [address] Jun, [facility] [place] [facility] [address] [id number] [place] [address] Jun, [facility] [place] [facility] [address] [id number] [place] [address] Jun, [facility] [place] [facility] [address] [id number] [place] [address] Jun, [facility] [place] [facility] [address] [id number] [place] [address] Jun, [facility] [place] [facility] [address] [id number] [place] [address] 30 May, 2014 [facility] [place] [facility] [address] [id number] [place] [address] May, [facility] [place] [facility] [address] [id number] [place] [address] May, [facility] [place] [facility] [address] [id number] [place] [address] May, [facility] [place] [facility] [address] [id number] [place] [address] May, [facility] [place] [facility] [address] [id number] [place] [address] May, [facility] [place] [facility] [address] [id number] [place] [address] May, [facility] [place] [facility] [address] [id number] [place] [address] May, [facility] [place] [facility] [address] [id number] [place] [address] 18 May, 2014 [facility] [place] [facility] [address] [id number] [place] [address] 15 May, 2014 [facility] [place] [facility] [address] [id number] [place] [address] May, [facility] [place] [facility] [address] [id number] [place] [address] Apr, [facility] [place] [facility] [address] [id number] [place] [address] Apr, [facility] [place] [facility] [address] [id number] [place] [address] Apr, [facility] [place] [facility] [address] [id number] [place] [address] Apr, [facility] [place] [facility] [address] [id number] [place] [address] Mar, [facility] [place] [facility] [address] [id number] [place] [address] Mar, [facility] [place] [facility] [address] [id number] [place] [address] Mar, [facility] [place] [facility] [address] [id number] [place] [address] Mar, [facility] [place] [facility] [address] [facility] [id number] [place] [address] Feb, [facility] [place] [facility] [address] [id number] [place] [address] Feb, [facility] [place] [facility] [address] [id number] [place] [address] Feb, [facility] [place] [facility] [address] [id number] [place] [address] Feb, [facility] [place] [facility] [address] [id number] [place] [address] Feb, [facility] [place] [facility] [address] [id number] [place] [address] Feb, [facility] [place] [facility] [address] [id number] [place] [address] Jan, [facility] [place] [facility] [address] [id number] [place] [address] Jan, [facility] [place] [facility] [address] [id number] [place] [address] Jan, [facility] [place] [facility] [address] [id number] [place] [address] Jan, [facility] [place] [facility] [address] [id number] [place] [address] Jan, [facility] [place] [facility] [address] [id number] [place] [address] Jan, [facility] [place] [facility] [address] [id number] [place] [address] Dec, [facility] [place] [facility] [address] [id number] [place] [address] Dec, [facility] [place] [facility] [address] [id number] [place] [address] Nov, [facility] [place] [facility] [address] [id number] [place] [address] Nov, [facility] [place] [facility] [address] [id number] [place] [address] Nov, [facility] [place] [facility] [address] [id number] [place] [address] Nov, [facility] [place] [facility] [address] [id number] [place] [address] Nov, [facility] [place] [facility] [address] [id number] [place] [address] Nov, [facility] [place] [facility] [address] [id number] [place] [address] Nov, [facility] [place] [facility] [address] [id number] [place] [address] October, [facility] [place] [facility] [address] [id number] [place] [address] October, [facility] [place] [facility] [address] [id number] [place] [address] Sep, [facility] [place] [facility] [address] [id number] [place] [address] Sep, [facility] [place] [facility] [address] [id number] [place] [address] Sep, [facility] [place] [facility] [address] [id number] [place] [address] Sep, [facility] [place] [facility] [address] [id number] [place] [address] 17 Sep, 2013 [facility] [place] [facility] [address] [facility] [id number] [place] [address] 16 Sep, 2013 [facility] [place] [facility] [address] [id number] [place] [address] Sep, [facility] [place] [facility] [address] [id number] [place] [address] Sep, [facility] [place] [facility] [address] [id number] [place] [address] 16 Sep, 2013 [facility] [place] [facility] [address] [facility] [id number] [place] [address] 14 Sep, 2013 [facility] [place] [facility] [address] [facility] [id number] [place] [address] 14 Sep, 2013 [facility] [place] [facility] [address] [facility] [id number] [place] [address] Sep, [facility] [place] [facility] [address] [facility] [id number] [place] [address] Sep, [facility] [place] [facility] [address] [facility] [id number] [place] [address] 08 Sep, 2013 [facility] [place] [facility] [address] [facility] [id number] [place] [address] Sep, [facility] [place] [facility] [address] [id number] [place] [address] 24 Aug, 2013 [facility] [place] [facility] [address] [id number] [place] [address] 24 Aug, 2013 [facility] [place] [facility] [address] [facility] [id number] [place] [address] 24 Aug, 2013 [facility] [place] [facility] [address] [id number] [place] [address] Aug, [facility] [place] [facility] [address] [id number] [place] [address] Aug, [facility] [place] [facility] [address] [id number] [place] [address] Aug, [facility] [place] [facility] [address] [facility] [id number] [place] [address] Aug, [facility] [place] [facility] [address] [facility] [id number] [place] [address] Aug, [facility] [place] [facility] [address] [facility] [id number] [place] [address] Aug, [facility] [place] [facility] [address] [id number] [place] [address] Aug, [facility] [place] [facility] [address] [id number] [place] [address] Jun, [facility] [place] [facility] [address] [id number] [place] [address] Jun, [facility] [place] [facility] [address] [id number] [place] [address] Jun, [facility] [place] [facility] [address] [id number] [place] [address] Jun, [facility] [place] [facility] [address] [id number] [place] [address] Jun, [facility] [place] [facility] [address] [facility] [id number] [place] [address] Jun, [facility] [place] [facility] [address] [id number] [place] [address] Jun, [facility] [place] [facility] [address] [id number] [place] [address] Jun, [facility] [place] [facility] [address] [id number] [place] [address] Jun, [facility] [place] [facility] [address] [id number] [place] [address] Jun, [facility] [place] [facility] [address] [id number] [place] [address] Jun, [facility] [place] [facility] [address] [id number] [place] [address] Jun, [facility] [place] [facility] [address] [id number] [place] [address] Apr, [facility] [place] [facility] [address] [id number] [place] [address] Apr, [facility] [place] [facility] [address] [id number] [place] [address] Jan, [facility] [place] [facility] [address] [id number] [place] [address] Jan, [facility] [place] [facility] [address] [id number] [place] [address] Jan, [facility] [place] [facility] [address] [id number] [place] [address] Jan, [facility] [address] [id number] [place] [address] Jan, [facility] [address] [id number] [place] [address] Jan, [facility] [address] [id number] [place] [address] Jan, [facility] [address] [place] [id number] Jan, [facility] [address] [id number] [place] [address] Dec, [facility] [address] [id number] [place] [address] Dec, [facility] [address] [id number] [place] [address] Dec, [facility] [address] [id number] [place] [address] Dec, [facility] [address] [id number] [place] [address] Dec, [facility] [address] [id number] [place] [address] Dec, [facility] [address] [id number] [place] [address] Dec, [facility] [address] [id number] [place] [address] Nov, [facility] [address] [id number] [place] [address] Nov, IMMUNIZATIONS No Known Immunizations SOCIAL HISTORY Never Assessed REASON FOR VISIT PLAN OF CARE VITAL SIGNS MEDICATIONS Unknown Medications RESULTS No Results PROCEDURES Procedure Date Ordered Result Body Site PROTHROMBIN TIME September 12, 2013 ASSAY THYROID STIM HORMONE September 12, 2013 VENIPUNCT, ROUTINE* September 12, 2013 INSTRUCTIONS MEDICATIONS ADMINISTERED No Known Medications
--- OUTSIDE RECORDS SUMMARY | 2019-07-25 20:21 | XMS REPORT ---
Author Author Ayden Payne Doctor Organization [facility] Address Unknown Phone Unavailable Care Team Providers Care Rn Ante Partum Name Role Phone Migration, Doctor Unavailable Unavailable PROBLEMS Type Condition ICD9-CM Code [id number] Code Onset Dates Condition S tatus SNOMED Code Problem Personal history of fall V15.88 Activ e 164818437 [facility]0 Active 356280230 Problem Personal history of venous thrombosis and embolism V12.51 Active 918806151 Problem Status of other artificial opening of urinary tract V44.6 Active Problem Suicide and self-inflicted p oisoning by unspecified drug or medicinal substance E950.5 Active Problem Other dyspnea and respiratory abnormalities 786.09 Active 862881962 Problem Dysuria 788.1 Active 20228543 Problem Congestive heart failure, unspecified 428.0 Active 86629596 Problem Other screening breast examination V76.19 Active 37341864 Problem Unspecified hypotension 458.9 Active 94188409 Problem Other specified disorders of bladder 596.89 Active 82337222 Problem Encounter for long-term (current) use of other medications V58.69 Active 458568927 Problem Counseling on substance use and abuse V65.42 Active 292898416 Problem Unspecified myalgia and myositis 729.1 Active 006576733 Problem Pain in soft tissues of limb 729.5 A ctive 71789545 Problem Urinary tract infection, site not specified 599.0 Active 53196742 Problem Pain in joint, lower leg 719.46 Activ e 348552619 Problem Chronic airway obstruction, not elsewhere classified 496 Active 79909448 Problem Neurogenic bladder, NOS 596.54 Active 351820259 Problem Acute sinusitis, unspecified 461.9 A ctive 01434282 Problem Personal history of pulmonary embolism V12.55 Active 629401354 Problem Acute bronchitis 466.0 Active 105 67278 Problem Unspecified hearing loss 389.9 Activ e 38075401 Problem Unspecified otalgia 388.70 Active 65357628 Problem Unspecified hereditary and idiopathic peripheral neuropath y 356.9 Active 091043054 Problem Other and unspecified hyperlipidemia 272.4 Active 10662662 Problem Altered mental status 780.97 Active 032596157 Problem Diabetes mellitus without me ntion of complication, type II or unspecified type, not stated as uncontrolled 250.00 Active 429267070 Problem Shortness of breath 786.05 Active 062388522 Problem Other malaise and fatigue 780.79 Acti ve 401607651 Problem Other chronic pain 338.29 Active 8 0459953 Problem Nondependent tobacco use disorder 305.1 Active 526058333 Problem Amphetamine and other psychostimulant de pendence, 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 Active Problem Obesity, unspecified 278.00 Active 610161237 ALLERGIES No Information ENCOUNTERS Encounter Location Date Diagnosis [address] [place] [address] Jul, [facility] [address] [address] Sep, [facility] [address] [address] Sep, [facility] [address] [address] Aug, [facility] [address] [address] Aug, [facility] [address] [address] Aug, [facility] [address] [address] Aug, [facility] [address] [address] Aug, [facility] [address] [address] Aug, [facility] [address] [address] Jul, [facility] [address] [address] Jul, [facility] [place] [facility] [address] [id number] [place] [address] Jul, [facility] [place] [facility] [address] [id number] [place] [address] Jul, [facility] [place] [facility] [address] [id number] [place] [address] Jul, [facility] [place] [facility] [address] [id number] [place] [address] Jul, 2014 [facility] [place] [facility] [address] [id number] [place] [address] 16 Jul, 2014 [facility] [place] [facility] [address] [id number] [place] [address] Jul, [facility] [place] [facility] [address] [id number] [place] [address] Jul, [facility] [place] [facility] [address] [id number] [place] [address] Jun, [facility] [place] [facility] [address] [id number] [place] [address] Jun, [facility] [place] [facility] [address] [id number] [place] [address] Jun, [facility] [place] [facility] [address] [id number] [place] [address] Jun, [facility] [place] [facility] [address] [id number] [place] [address] Jun, [facility] [place] [facility] [address] [id number] [place] [address] Jun, [facility] [place] [facility] [address] [id number] [place] [address] Jun, [facility] [place] [facility] [address] [id number] [place] [address] Jun, [facility] [place] [facility] [address] [id number] [place] [address] Jun, [facility] [place] [facility] [address] [id number] [place] [address] 05 Jun, 2014 [facility] [place] [facility] [address] [facility] [id number] [place] [address] 30 May, 2014 [facility] [place] [facility] [address] [id number] [place] [address] May, [facility] [place] [facility] [address] [id number] [place] [address] May, [facility] [place] [facility] [address] [id number] [place] [address] May, [facility] [place] [facility] [address] [id number] [place] [address] May, [facility] [place] [facility] [address] [id number] [place] [address] May, [facility] [place] [facility] [address] [id number] [place] [address] May, [facility] [place] [facility] [address] [id number] [place] [address] May, [facility] [place] [facility] [address] [id number] [place] [address] 18 May, 2014 [facility] [place] [facility] [address] [id number] [place] [address] 15 May, 2014 [facility] [place] [facility] [address] [id number] [place] [address] 15 May, 2014 [facility] [place] [facility] [address] [id number] [place] [address] Apr, [facility] [place] [facility] [address] [id number] [place] [address] Apr, [facility] [place] [facility] [address] [id number] [place] [address] Apr, [facility] [place] [facility] [address] [id number] [place] [address] Apr, [facility] [place] [facility] [address] [id number] [place] [address] Mar, [facility] [place] [facility] [address] [facility] [id number] [place] [address] Mar, [facility] [place] [facility] [address] [facility] [id number] [place] [address] Mar, [facility] [place] [facility] [address] [facility] [id number] [place] [address] Mar, [facility] [place] [facility] [address] [facility] [id number] [place] [address] Feb, [facility] [place] [facility] [address] [facility] [id number] [place] [address] Feb, [facility] [place] [facility] [address] [facility] [id number] [place] [address] Feb, [facility] [place] [facility] [address] [id number] [place] [address] Feb, [facility] [place] [facility] [address] [id number] [place] [address] Feb, [facility] [place] [facility] [address] [id number] [place] [address] Feb, [facility] [place] [facility] [address] [facility] [id number] [place] [address] Jan, [facility] [place] [facility] [address] [id number] [place] [address] Jan, [facility] [place] [facility] [address] [id number] [place] [address] Jan, [facility] [place] [facility] [address] [id number] [place] [address] Jan, [facility] [place] [facility] [address] [facility] [id number] [place] [address] Jan, [facility] [place] [facility] [address] [id number] [place] [address] Jan, [facility] [place] [facility] [address] [id number] [place] [address] Dec, [facility] [place] [facility] [address] [id number] [place] [address] Dec, [facility] [place] [facility] [address] [facility] [id number] [place] [address] Nov, [facility] [place] [facility] [address] [id number] [place] [address] Nov, [facility] [place] [facility] [address] [id number] [place] [address] Nov, [facility] [place] [facility] [address] [id number] [place] [address] Nov, [facility] [place] [facility] [address] [facility] [id number] [place] [address] Nov, [facility] [place] [facility] [address] [id number] [place] [address] Nov, [facility] [place] [facility] [address] [id number] [place] [address] Nov, [facility] [place] [facility] [address] [id number] [place] [address] October, [facility] [place] [facility] [address] [id number] [place] [address] October, [facility] [place] [facility] [address] [id number] [place] [address] Sep, [facility] [place] [facility] [address] [id number] [place] [address] Sep, [facility] [place] [facility] [address] [id number] [place] [address] Sep, [facility] [place] [facility] [address] [id number] [place] [address] Sep, [facility] [place] [facility] [address] [id number] [place] [address] Sep, [facility] [place] [facility] [address] [id number] [place] [address] Sep, [facility] [place] [facility] [address] [id number] [place] [address] Sep, [facility] [place] [facility] [address] [id number] [place] [address] 16 Sep, 2013 [facility] [place] [facility] [address] [facility] [id number] [place] [address] 16 Sep, 2013 [facility] [place] [facility] [address] [facility] [id number] [place] [address] 14 Sep, 2013 [facility] [place] [facility] [address] [facility] [id number] [place] [address] 14 Sep, 2013 [facility] [place] [facility] [address] [facility] [id number] [place] [address] Sep, [facility] [place] [facility] [address] [facility] [id number] [place] [address] Sep, [facility] [place] [facility] [address] [facility] [id number] [place] [address] 08 Sep, 2013 [facility] [place] [facility] [address] [id number] [facility] [place] [address] Sep, [facility] [place] [facility] [address] [id number] [facility] [place] [address] 24 Aug, 2013 [facility] [place] [facility] [address] [facility] [id number] [facility] [place] [address] 24 Aug, 2013 [facility] [place] [facility] [address] [facility] [id number] [facility] [place] [address] 24 Aug, 2013 [facility] [place] [facility] [address] [facility] [id number] [facility] [place] [address] 24 Aug, 2013 [facility] [place] [facility] [address] [id number] [facility] [place] [address] Aug, [facility] [place] [facility] [address] [facility] [id number] [place] [address] Aug, [facility] [place] [facility] [address] [id number] [place] [address] Aug, [facility] [place] [facility] [address] [facility] [id number] [facility] [place] [address] Aug, [facility] [place] [facility] [address] [id number] [facility] [place] [address] Aug, [facility] [place] [facility] [address] [facility] [id number] [place] [address] Aug, [facility] [place] [facility] [address] [facility] [id number] [place] [address] Jun, [facility] [place] [facility] [address] [facility] [id number] [place] [address] Jun, [facility] [place] [facility] [address] [id number] [place] [address] Jun, [facility] [place] [facility] [address] [id number] [place] [address] Jun, [facility] [place] [facility] [address] [id number] [place] [address] Jun, [facility] [place] [facility] [address] [id number] [place] [address] Jun, [facility] [place] [facility] [address] [id number] [place] [address] Jun, [facility] [place] [facility] [address] [id number] [place] [address] Jun, [facility] [place] [facility] [address] [id number] [place] [address] Jun, [facility] [place] [facility] [address] [id number] [place] [address] Jun, [facility] [place] [facility] [address] [id number] [place] [address] Jun, [facility] [place] [facility] [address] [id number] [place] [address] Jun, [facility] [place] [facility] [address] [id number] [place] [address] Apr, [facility] [place] [facility] [address] [id number] [place] [address] Apr, [facility] [place] [facility] [address] [id number] [place] [address] Jan, [facility] [place] [facility] [address] [id number] [place] [address] Jan, [facility] [address] [id number] [place] [address] Jan, [facility] [address] [id number] [place] [address] Jan, [facility] [address] [id number] [place] [address] Jan, [facility] [id number] [place] [address] Jan, [facility] [address] [id number] [place] [address] Jan, [facility] [address] [place] [id number] Jan, [facility] [address] [id number] [place] [address] Dec, [facility] [id number] [place] [address] Dec, [facility] [id number] [place] [address] Dec, [facility] [id number] [place] [address] Dec, [facility] [id number] [place] [address] Dec, [facility] [id number] [place] [address] Dec, [facility] [address] [id number] [place] [address] Dec, [facility] [id number] [place] [address] Nov, [facility] [id number] [place] [address] Nov, IMMUNIZATIONS No Known Immunizations SOCIAL HISTORY Never Assessed REASON FOR VISIT PLAN OF CARE VITAL SIGNS MEDICATIONS Unknown Medications RESULTS No Results PROCEDURES No Known procedures INSTRUCTIONS MEDICATIONS ADMINISTERED No Known Medications
--- OUTSIDE RECORDS SUMMARY | 2019-07-25 20:21 | XMS REPORT ---
Author Author Ayden Payne Doctor Organization [facility] Address Unknown Phone Unavailable Care Team Providers Care Metal Bumper Name Role Phone Migration, Doctor Unavailable Unavailable PROBLEMS Type Condition ICD9-CM Code [id number] Code Onset Dates Condition S tatus SNOMED Code Problem Personal history of fall V15.88 Activ e 499823489 Problem Routine general medical examination at [facility] y V70.0 Active 837743865 Problem Personal history of venous thrombosis and embolism V12.51 Active 877634904 Problem Status of other artificial opening of urinary tract V44.6 Active Problem Suicide and self-inflicted p oisoning by unspecified drug or medicinal substance E950.5 Active Problem Other dyspnea and respiratory abnormalities 786.09 Active 098324886 Problem Dysuria 788.1 Active 96917694 Problem Congestive heart failure, unspecified 428.0 Active 29396951 Problem Other screening breast examination V76.19 Active 92648509 Problem Unspecified hypotension 458.9 Active 61110538 Problem Other specified disorders of bladder 596.89 Active 41994287 Problem Encounter for long-term (current) use of other medications V58.69 Active 922085466 Problem Counseling on substance use and abuse V65.42 Active 704937281 Problem Unspecified myalgia and myositis 729.1 Active 108834313 Problem Pain in soft tissues of limb 729.5 A ctive 41464816 Problem Urinary tract infection, site not specified 599.0 Active 38682870 Problem Pain in joint, lower leg 719.46 Activ e 559716632 Problem Chronic airway obstruction, not elsewhere classified 496 Active 21718381 Problem Neurogenic bladder, NOS 596.54 Active 135533274 Problem Acute sinusitis, unspecified 461.9 A ctive 20708509 Problem Personal history of pulmonary embolism V12.55 Active 431983285 Problem Acute bronchitis 466.0 Active 105 77448 Problem Unspecified hearing loss 389.9 Activ e 09583180 Problem Unspecified otalgia 388.70 Active 46182670 Problem Unspecified hereditary and idiopathic peripheral neuropath y 356.9 Active 330545587 Problem Other and unspecified hyperlipidemia 272.4 Active 45220611 Problem Altered mental status 780.97 Active 698277079 Problem Diabetes mellitus without me ntion of complication, type II or unspecified type, not stated as uncontrolled 250.00 Active 828096846 Problem Shortness of breath 786.05 Active 416155838 Problem Other malaise and fatigue 780.79 Acti ve 712951580 Problem Other chronic pain 338.29 Active 8 5951313 Problem Nondependent tobacco use disorder 305.1 Active 874095093 Problem Amphetamine and other psychostimulant de pendence, 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 Active Problem Obesity, unspecified 278.00 Active 635139584 ALLERGIES No Information ENCOUNTERS Encounter Location Date Diagnosis [facility] [address] [address] Sep, [facility] [address] [address] Sep, [facility] [address] [address] Aug, [facility] [address] [address] Aug, [facility] [address] [address] Aug, [facility] [address] [address] Aug, [facility] [address] [address] Aug, [facility] [address] [address] Aug, [facility] [address] [address] Jul, [facility] [address] [address] Jul, [facility] [address] [address] Jul, [facility] [address] [id number] [facility] [place] [address] Jul, [facility] [place] [facility] [address] [facility] [id number] [place] [address] Jul, [facility] [place] [facility] [address] [id number] [place] [address] Jul, [facility] [place] [facility] [address] [id number] [place] [address] Jul, [facility] [place] [facility] [address] [id number] [place] [address] Jul, [facility] [place] [facility] [address] [id number] [place] [address] Jul, [facility] [place] [facility] [address] [id number] [place] [address] Jun, [facility] [place] [facility] [address] [id number] [place] [address] Jun, [facility] [place] [facility] [address] [id number] [place] [address] Jun, [facility] [place] [facility] [address] [id number] [place] [address] Jun, [facility] [place] [facility] [address] [id number] [place] [address] Jun, [facility] [place] [facility] [address] [id number] [place] [address] Jun, [facility] [place] [facility] [address] [id number] [place] [address] Jun, [facility] [place] [facility] [address] [id number] [place] [address] Jun, [facility] [place] [facility] [address] [id number] [place] [address] Jun, [facility] [place] [facility] [address] [id number] [place] [address] Jun, [facility] [place] [facility] [address] [id number] [place] [address] 30 May, 2014 [facility] [place] [facility] [address] [id number] [place] [address] May, [facility] [place] [facility] [address] [id number] [place] [address] May, [facility] [place] [facility] [address] [id number] [place] [address] May, [facility] [place] [facility] [address] [id number] [place] [address] May, [facility] [place] [facility] [address] [id number] [place] [address] May, [facility] [place] [facility] [address] [id number] [place] [address] May, [facility] [place] [facility] [address] [id number] [place] [address] May, [facility] [place] [facility] [address] [id number] [place] [address] 18 May, 2014 [facility] [place] [facility] [address] [id number] [place] [address] 15 May, 2014 [facility] [place] [facility] [address] [id number] [place] [address] May, [facility] [place] [facility] [address] [id number] [place] [address] Apr, [facility] [place] [facility] [address] [id number] [place] [address] Apr, [facility] [place] [facility] [address] [id number] [place] [address] Apr, [facility] [place] [facility] [address] [id number] [place] [address] Apr, [facility] [place] [facility] [address] [id number] [place] [address] Mar, [facility] [place] [facility] [address] [id number] [place] [address] Mar, [facility] [place] [facility] [address] [id number] [place] [address] Mar, [facility] [place] [facility] [address] [id number] [place] [address] Mar, [facility] [place] [facility] [address] [facility] [id number] [place] [address] Feb, [facility] [place] [facility] [address] [id number] [place] [address] Feb, [facility] [place] [facility] [address] [id number] [place] [address] Feb, [facility] [place] [facility] [address] [id number] [place] [address] Feb, [facility] [place] [facility] [address] [id number] [place] [address] Feb, [facility] [place] [facility] [address] [id number] [place] [address] Feb, [facility] [place] [facility] [address] [id number] [place] [address] Jan, [facility] [place] [facility] [address] [id number] [place] [address] Jan, [facility] [place] [facility] [address] [id number] [place] [address] Jan, [facility] [place] [facility] [address] [id number] [place] [address] Jan, [facility] [place] [facility] [address] [id number] [place] [address] Jan, [facility] [place] [facility] [address] [id number] [place] [address] Jan, [facility] [place] [facility] [address] [id number] [place] [address] Dec, [facility] [place] [facility] [address] [id number] [place] [address] Dec, [facility] [place] [facility] [address] [id number] [place] [address] Nov, [facility] [place] [facility] [address] [id number] [place] [address] Nov, [facility] [place] [facility] [address] [id number] [place] [address] Nov, [facility] [place] [facility] [address] [id number] [place] [address] Nov, [facility] [place] [facility] [address] [id number] [place] [address] Nov, [facility] [place] [facility] [address] [id number] [place] [address] Nov, [facility] [place] [facility] [address] [id number] [place] [address] Nov, [facility] [place] [facility] [address] [id number] [place] [address] October, [facility] [place] [facility] [address] [id number] [place] [address] October, [facility] [place] [facility] [address] [id number] [place] [address] Sep, [facility] [place] [facility] [address] [id number] [place] [address] Sep, [facility] [place] [facility] [address] [id number] [place] [address] Sep, [facility] [place] [facility] [address] [id number] [place] [address] Sep, [facility] [place] [facility] [address] [id number] [place] [address] 17 Sep, 2013 [facility] [place] [facility] [address] [facility] [id number] [place] [address] 16 Sep, 2013 [facility] [place] [facility] [address] [id number] [place] [address] Sep, [facility] [place] [facility] [address] [id number] [place] [address] Sep, [facility] [place] [facility] [address] [id number] [place] [address] 16 Sep, 2013 [facility] [place] [facility] [address] [facility] [id number] [facility] [place] [address] 14 Sep, 2013 [facility] [place] [facility] [address] [facility] [id number] [facility] [place] [address] 14 Sep, 2013 [facility] [place] [facility] [address] [facility] [id number] [place] [address] Sep, [facility] [place] [facility] [address] [facility] [id number] [place] [address] Sep, [facility] [place] [facility] [address] [facility] [id number] [facility] [place] [address] 08 Sep, 2013 [facility] [place] [facility] [address] [facility] [id number] [facility] [place] [address] Sep, [facility] [place] [facility] [address] [id number] [place] [address] 24 Aug, 2013 [facility] [place] [facility] [address] [id number] [facility] [place] [address] 24 Aug, 2013 [facility] [place] [facility] [address] [facility] [id number] [place] [address] 24 Aug, 2013 [facility] [place] [facility] [address] [id number] [facility] [place] [address] Aug, [facility] [place] [facility] [address] [id number] [place] [address] Aug, [facility] [place] [facility] [address] [id number] [place] [address] Aug, [facility] [place] [facility] [address] [facility] [id number] [place] [address] Aug, [facility] [place] [facility] [address] [facility] [id number] [place] [address] Aug, [facility] [place] [facility] [address] [facility] [id number] [place] [address] Aug, [facility] [place] [facility] [address] [id number] [facility] [place] [address] Aug, [facility] [place] [facility] [address] [id number] [place] [address] Jun, [facility] [place] [facility] [address] [id number] [place] [address] Jun, [facility] [place] [facility] [address] [id number] [place] [address] Jun, [facility] [place] [facility] [address] [id number] [place] [address] Jun, [facility] [place] [facility] [address] [id number] [place] [address] Jun, [facility] [place] [facility] [address] [facility] [id number] [place] [address] Jun, [facility] [place] [facility] [address] [id number] [place] [address] Jun, [facility] [place] [facility] [address] [id number] [place] [address] Jun, [facility] [place] [facility] [address] [id number] [place] [address] Jun, [facility] [place] [facility] [address] [id number] [place] [address] Jun, [facility] [place] [facility] [address] [id number] [place] [address] Jun, [facility] [place] [facility] [address] [id number] [place] [address] Jun, [facility] [place] [facility] [address] [id number] [place] [address] Apr, [facility] [place] [facility] [address] [id number] [place] [address] Apr, [facility] [place] [facility] [address] [id number] [place] [address] Jan, [facility] [place] [facility] [address] [id number] [place] [address] Jan, [facility] [place] [facility] [address] [id number] [place] [address] Jan, [facility] [place] [facility] [address] [id number] [place] [address] Jan, [facility] [address] [id number] [place] [address] Jan, [facility] [address] [id number] [place] [address] Jan, [facility] [address] [id number] [place] [address] Jan, [facility] [address] [place] [id number] Jan, [facility] [address] [id number] [place] [address] Dec, [facility] [address] [id number] [place] [address] Dec, [facility] [address] [id number] [place] [address] Dec, [facility] [address] [id number] [place] [address] Dec, [facility] [address] [id number] [place] [address] Dec, [facility] [address] [id number] [place] [address] Dec, [facility] [address] [id number] [place] [address] Dec, [facility] [address] [id number] [place] [address] Nov, [facility] [address] [id number] [place] [address] Nov, IMMUNIZATIONS No Known Immunizations SOCIAL HISTORY Never Assessed REASON FOR VISIT PLAN OF CARE VITAL SIGNS MEDICATIONS Unknown Medications RESULTS No Results PROCEDURES Procedure Date Ordered Result Body Site PROTHROMBIN TIME September 17, 2013 INSTRUCTIONS MEDICATIONS ADMINISTERED No Known Medications
--- OUTSIDE RECORDS SUMMARY | 2019-07-25 20:21 | XMS REPORT ---
Author Author Ayden Payne Doctor Organization [facility] Address Unknown Phone Unavailable Care Team Providers Care Launch Manager Name Role Phone Migration, Doctor Unavailable Unavailable PROBLEMS Type Condition ICD9-CM Code OFI24-YI Code Onset Dates Condition S tatus SNOMED Code Problem Personal history of fall V15.88 Activ e 671711981 Problem Routine general medical examination at [facility] y V70.0 Active 357034753 Problem Personal history of venous thrombosis and embolism V12.51 Active 064867389 Problem Status of other artificial opening of urinary tract V44.6 Active Problem Suicide and self-inflicted p oisoning by unspecified drug or medicinal substance E950.5 Active Problem Other dyspnea and respiratory abnormalities 786.09 Active 224468481 Problem Dysuria 788.1 Active 54970384 Problem Congestive heart failure, unspecified 428.0 Active 41590262 Problem Other screening breast examination V76.19 Active 68549567 Problem Unspecified hypotension 458.9 Active 82042204 Problem Other specified disorders of bladder 596.89 Active 76893259 Problem Encounter for long-term (current) use of other medications V58.69 Active 336909135 Problem Counseling on substance use and abuse V65.42 Active 654992920 Problem Unspecified myalgia and myositis 729.1 Active 472280038 Problem Pain in soft tissues of limb 729.5 A ctive 51199893 Problem Urinary tract infection, site not specified 599.0 Active 07328630 Problem Pain in joint, lower leg 719.46 Activ e 968488863 Problem Chronic airway obstruction, not elsewhere classified 496 Active 58351760 Problem Neurogenic bladder, NOS 596.54 Active 126978217 Problem Acute sinusitis, unspecified 461.9 A ctive 69117954 Problem Personal history of pulmonary embolism V12.55 Active 906539857 Problem Acute bronchitis 466.0 Active 105 94062 Problem Unspecified hearing loss 389.9 Activ e 56351593 Problem Unspecified otalgia 388.70 Active 09449804 Problem Unspecified hereditary and idiopathic peripheral neuropath y 356.9 Active 521726229 Problem Other and unspecified hyperlipidemia 272.4 Active 04225939 Problem Altered mental status 780.97 Active 183003896 Problem Diabetes mellitus without me ntion of complication, type II or unspecified type, not stated as uncontrolled 250.00 Active 604421878 Problem Shortness of breath 786.05 Active 950580416 Problem Other malaise and fatigue 780.79 Acti ve 219837726 Problem Other chronic pain 338.29 Active 8 3282798 Problem Nondependent tobacco use disorder 305.1 Active 390973339 Problem Amphetamine and other psychostimulant de pendence, 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 Active Problem Obesity, unspecified 278.00 Active 539714786 ALLERGIES No Information ENCOUNTERS Encounter Location Date Diagnosis [facility] [address] [address] Sep, [facility] [address] [address] Sep, [facility] [address] [address] Aug, [facility] [address] [address] Aug, [facility] [address] [address] Aug, [facility] [address] [address] Aug, [facility] [address] [address] Aug, [facility] [address] [address] Aug, [facility] [address] [address] Jul, [facility] [address] [address] Jul, [facility] [address] [address] Jul, [facility] [address] [id number] [place] [address] Jul, [facility] [place] [facility] [address] [facility] [id number] [place] [address] Jul, [facility] [place] [facility] [address] [id number] [place] [address] Jul, [facility] [place] [facility] [address] [id number] [place] [address] Jul, [facility] [place] [facility] [address] [id number] [place] [address] Jul, [facility] [place] [facility] [address] [id number] [place] [address] Jul, [facility] [place] [facility] [address] [id number] [place] [address] Jun, [facility] [place] [facility] [address] [id number] [place] [address] Jun, [facility] [place] [facility] [address] [id number] [place] [address] Jun, [facility] [place] [facility] [address] [id number] [place] [address] Jun, [facility] [place] [facility] [address] [id number] [place] [address] Jun, [facility] [place] [facility] [address] [id number] [place] [address] Jun, [facility] [place] [facility] [address] [id number] [place] [address] Jun, [facility] [place] [facility] [address] [id number] [place] [address] Jun, [facility] [place] [facility] [address] [id number] [place] [address] Jun, [facility] [place] [facility] [address] [id number] [place] [address] Jun, [facility] [place] [facility] [address] [id number] [place] [address] 30 May, 2014 [facility] [place] [facility] [address] [id number] [place] [address] May, [facility] [place] [facility] [address] [id number] [place] [address] May, [facility] [place] [facility] [address] [id number] [place] [address] May, [facility] [place] [facility] [address] [id number] [place] [address] May, [facility] [place] [facility] [address] [id number] [place] [address] May, [facility] [place] [facility] [address] [id number] [place] [address] May, [facility] [place] [facility] [address] [id number] [place] [address] May, [facility] [place] [facility] [address] [id number] [place] [address] 18 May, 2014 [facility] [place] [facility] [address] [id number] [place] [address] 15 May, 2014 [facility] [place] [facility] [address] [id number] [place] [address] May, [facility] [place] [facility] [address] [id number] [place] [address] Apr, [facility] [place] [facility] [address] [id number] [place] [address] Apr, [facility] [place] [facility] [address] [id number] [place] [address] Apr, [facility] [place] [facility] [address] [id number] [place] [address] Apr, [facility] [place] [facility] [address] [id number] [place] [address] Mar, [facility] [place] [facility] [address] [id number] [place] [address] Mar, [facility] [place] [facility] [address] [id number] [place] [address] Mar, [facility] [place] [facility] [address] [id number] [place] [address] Mar, [facility] [place] [facility] [address] [facility] [id number] [place] [address] Feb, [facility] [place] [facility] [address] [id number] [place] [address] Feb, [facility] [place] [facility] [address] [id number] [place] [address] Feb, [facility] [place] [facility] [address] [id number] [place] [address] Feb, [facility] [place] [facility] [address] [id number] [place] [address] Feb, [facility] [place] [facility] [address] [id number] [place] [address] Feb, [facility] [place] [facility] [address] [id number] [place] [address] Jan, [facility] [place] [facility] [address] [id number] [place] [address] Jan, [facility] [place] [facility] [address] [id number] [place] [address] Jan, [facility] [place] [facility] [address] [id number] [place] [address] Jan, [facility] [place] [facility] [address] [id number] [place] [address] Jan, [facility] [place] [facility] [address] [id number] [place] [address] Jan, [facility] [place] [facility] [address] [id number] [place] [address] Dec, [facility] [place] [facility] [address] [id number] [place] [address] Dec, [facility] [place] [facility] [address] [id number] [place] [address] Nov, [facility] [place] [facility] [address] [id number] [place] [address] Nov, [facility] [place] [facility] [address] [id number] [place] [address] Nov, [facility] [place] [facility] [address] [id number] [place] [address] Nov, [facility] [place] [facility] [address] [id number] [place] [address] Nov, [facility] [place] [facility] [address] [id number] [place] [address] Nov, [facility] [place] [facility] [address] [id number] [place] [address] Nov, [facility] [place] [facility] [address] [id number] [place] [address] October, [facility] [place] [facility] [address] [id number] [place] [address] October, [facility] [place] [facility] [address] [id number] [place] [address] Sep, [facility] [place] [facility] [address] [id number] [place] [address] Sep, [facility] [place] [facility] [address] [id number] [place] [address] Sep, [facility] [place] [facility] [address] [id number] [place] [address] Sep, [facility] [place] [facility] [address] [id number] [place] [address] 17 Sep, 2013 [facility] [place] [facility] [address] [facility] [id number] [place] [address] 16 Sep, 2013 [facility] [place] [facility] [address] [id number] [place] [address] Sep, [facility] [place] [facility] [address] [id number] [place] [address] Sep, [facility] [place] [facility] [address] [id number] [place] [address] 16 Sep, 2013 [facility] [place] [facility] [address] [facility] [id number] [place] [address] 14 Sep, 2013 [facility] [place] [facility] [address] [facility] [id number] [place] [address] 14 Sep, 2013 [facility] [place] [facility] [address] [facility] [id number] [place] [address] Sep, [facility] [place] [facility] [address] [facility] [id number] [place] [address] Sep, [facility] [place] [facility] [address] [facility] [id number] [place] [address] 08 Sep, 2013 [facility] [place] [facility] [address] [facility] [id number] [place] [address] Sep, [facility] [place] [facility] [address] [id number] [place] [address] 24 Aug, 2013 [facility] [place] [facility] [address] [id number] [place] [address] 24 Aug, 2013 [facility] [place] [facility] [address] [facility] [id number] [place] [address] 24 Aug, 2013 [facility] [place] [facility] [address] [id number] [place] [address] Aug, [facility] [place] [facility] [address] [id number] [place] [address] Aug, [facility] [place] [facility] [address] [id number] [place] [address] Aug, [facility] [place] [facility] [address] [facility] [id number] [place] [address] Aug, [facility] [place] [facility] [address] [facility] [id number] [place] [address] Aug, [facility] [place] [facility] [address] [facility] [id number] [place] [address] Aug, [facility] [place] [facility] [address] [id number] [place] [address] Aug, [facility] [place] [facility] [address] [id number] [place] [address] Jun, [facility] [place] [facility] [address] [id number] [place] [address] Jun, [facility] [place] [facility] [address] [id number] [place] [address] Jun, [facility] [place] [facility] [address] [id number] [place] [address] Jun, [facility] [place] [facility] [address] [id number] [place] [address] Jun, [facility] [place] [facility] [address] [facility] [id number] [place] [address] Jun, [facility] [place] [facility] [address] [id number] [place] [address] Jun, [facility] [place] [facility] [address] [id number] [place] [address] Jun, [facility] [place] [facility] [address] [id number] [place] [address] Jun, [facility] [place] [facility] [address] [id number] [place] [address] Jun, [facility] [place] [facility] [address] [id number] [place] [address] Jun, [facility] [place] [facility] [address] [id number] [place] [address] Jun, [facility] [place] [facility] [address] [id number] [place] [address] Apr, [facility] [place] [facility] [address] [id number] [place] [address] Apr, [facility] [place] [facility] [address] [id number] [place] [address] Jan, [facility] [place] [facility] [address] [id number] [place] [address] Jan, [facility] [place] [facility] [address] [id number] [place] [address] Jan, [facility] [place] [facility] [address] [id number] [place] [address] Jan, [facility] [address] [id number] [place] [address] Jan, [facility] [address] [id number] [place] [address] Jan, [facility] [address] [id number] [place] [address] Jan, [facility] [address] [place] [id number] Jan, [facility] [address] [id number] [place] [address] Dec, [facility] [id number] [place] [address] Dec, [facility] [id number] [place] [address] Dec, [facility] [id number] [place] [address] Dec, [facility] [id number] [place] [address] Dec, [facility] [id number] [place] [address] Dec, [facility] [address] [id number] [place] [address] Dec, [facility] [id number] [place] [address] Nov, [facility] [address] [id number] [place] [address] Nov, IMMUNIZATIONS No Known Immunizations SOCIAL HISTORY Never Assessed REASON FOR VISIT PLAN OF CARE VITAL SIGNS MEDICATIONS Unknown Medications RESULTS No Results PROCEDURES No Known procedures INSTRUCTIONS MEDICATIONS ADMINISTERED No Known Medications
--- OUTSIDE RECORDS SUMMARY | 2019-07-25 20:22 | XMS REPORT ---
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 Active Problem Suicide and self-inflicted p oisoning by unspecified drug or medicinal substance E950.5 Active Problem Other dyspnea and respiratory abnormalities 786.09 Active 423464151 Problem Dysuria 788.1 Active 82127539 Problem Congestive heart failure, unspecified 428.0 Active 09573607 Problem Other screening breast examination V76.19 Active 22766470 Problem Unspecified hypotension 458.9 Active 73083279 Problem Other specified disorders of bladder 596.89 Active 79880541 Problem Encounter for long-term (current) use of other medications V58.69 Active 444466340 Problem Counseling on substance use and abuse V65.42 Active 844637326 Problem Unspecified myalgia and myositis 729.1 Active 799922730 Problem Pain in soft tissues of limb 729.5 A ctive 25606218 Problem Urinary tract infection, site not specified 599.0 Active 79403418 Problem Pain in joint, lower leg 719.46 Activ e 571033111 Problem Chronic airway obstruction, not elsewhere classified 496 Active 80716764 Problem Neurogenic bladder, NOS 596.54 Active 348196058 Problem Acute sinusitis, unspecified 461.9 A ctive 91963776 Problem Personal history of pulmonary embolism V12.55 Active 616778000 Problem Acute bronchitis 466.0 Active 105 81588 Problem Unspecified hearing loss 389.9 Activ e 24695981 Problem Unspecified otalgia 388.70 Active 64974877 Problem Unspecified hereditary and idiopathic peripheral neuropath y 356.9 Active 690176456 Problem Other and unspecified hyperlipidemia 272.4 Active 92127222 Problem Altered mental status 780.97 Active 980938430 Problem Diabetes mellitus without me ntion of complication, type II or unspecified type, not stated as uncontrolled 250.00 Active 217223962 Problem Shortness of breath 786.05 Active 017997531 Problem Other malaise and fatigue 780.79 Acti ve 985159266 Problem Other chronic pain 338.29 Active 8 7011245 Problem Nondependent tobacco use disorder 305.1 Active 401477676 Problem Amphetamine and other psychostimulant de pendence, 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 Active Problem Obesity, unspecified 278.00 Active 829994901 ALLERGIES No Information ENCOUNTERS Encounter Location Date Diagnosis [facility] [address] [facility] [id number] [address] [place] [id number] Sep, [facility] [address] [facility] [id number] [address] [place] [address] Sep, [facility] [address] [facility] [id number] [address] [place] [address] Aug, [facility] [address] [facility] [id number] [address] [place] [address] Aug, [facility] [address] [place] [id number] [address] [place] [address] Aug, [facility] [address] [facility] [id number] [address] [place] [address] Aug, [facility] [address] [facility] [id number] [address] [place] [address] Aug, [facility] [address] [facility] [id number] [address] [place] [address] Aug, [facility] [address] [facility] [id number] [address] [place] [address] Jul, [facility] [address] [facility] [id number] [address] [place] [address] Jul, [facility] [address] [place] [id number] [address] [place] [address] Jul, [facility] [address] [id number] [address] [place] [address], [place] [address] Jul, [facility] [address] [id number] [address] [place] [address], [place] [address] Jul, 2014 [facility] [address] [id number] [address] [place] [address], [place] [address] Jul, 2014 [facility] [address] [id number] [address] [place] [address], [place] [address] Jul, [facility] [address] [id number] [address] [place] [address], [place] [address] Jul, [facility] [address] [id number] [address] [place] [address], [place] [address] Jul, [facility] [address] [id number] [address] [place] [address], [place] [address] Jun, [facility] [address] [id number] [address] [place] [address], [place] [address] Jun, [facility] [address] [id number] [address] [place] [address], [place] [address] Jun, [facility] [address] [id number] [address] [place] [address], [place] [address] Jun, [facility] [address] [id number] [address] [place] [address], [place] [address] Jun, [facility] [address] [id number] [address] [place] [address] Jun, [facility] [address] [id number] [address] [place] [address] Jun, [facility] [address] [id number] [address] [place] [address] Jun, [facility] [address] [id number] [address] [place] [address] Jun, [facility] [address] [id number] [address] [place] [address], [place] [address] Jun, [facility] [address] [id number] [address] [place] [address], [place] [address] May, [facility] [address] [id number] [address] [place] [address], [place] [address] May, [facility] [address] [id number] [address] [place] [address], [place] [address] May, [facility] [address] [id number] [address] [place] [address], [place] [address] May, [facility] [address] [id number] [address] [place] [address], [place] [address] May, [facility] [address] [id number] [address] [place] [address], [place] [address] May, [facility] [address] [id number] [address] [place] [address], [place] [address] May, [facility] [address] [id number] [address] [place] [address], [place] [address] May, [facility] [address] [id number] [address] [place] [address], [place] [address] May, [facility] [address] [id number] [address] [place] [address], [place] [address] 15 May, 2014 [facility] [address] [id number] [address] [place] [address], [place] [address] 15 May, 2014 [facility] [address] [id number] [address] [place] [address], [place] [address] Apr, [facility] [address] [id number] [address] [place] [address], [place] [address] Apr, [facility] [address] [id number] [address] [place] [address], [place] [address] 17 Apr, 2014 [facility] [address] [id number] [address] [place] [address], [place] [address] Apr, [facility] [address] [id number] [address] [place] [address], [place] [address] Mar, [facility] [address] [id number] [address] [place] [address], [place] [address] Mar, [facility] [address] [id number] [address] [place] [address], [place] [address] Mar, [facility] [address] [id number] [address] [place] [address], [place] [address] Mar, [facility] [address] [id number] [address] [place] [address], [place] [address] Feb, [facility] [address] [id number] [address] [place] [address], [place] [address] Feb, [facility] [address] [id number] [address] [place] [address], [place] [address] Feb, [facility] [address] [id number] [address] [place] [address], [place] [address] Feb, [facility] [address] [id number] [address] [place] [address], [place] [address] 16 Feb, 2014 [facility] [address] [id number] [address] [place] [address], [place] [address] 16 Feb, 2014 [facility] [address] [id number] [address] [place] [address], [place] [address] Jan, [facility] [address] [id number] [address] [place] [address], [place] [address] Jan, [facility] [address] [id number] [address] [place] [address], [place] [address] Jan, [facility] [address] [id number] [address] [place] [address], [place] [address] Jan, [facility] [address] [id number] [address] [place] [address], [place] [address] Jan, [facility] [address] [id number] [address] [place] [address], [place] [address] Jan, [facility] [address] [id number] [address] [place] [address], [place] [address] Dec, [facility] [address] [id number] [address] [place] [address], [place] [address] Dec, [facility] [address] [id number] [address] [place] [address], [place] [address] Nov, [facility] [address] [id number] [address] [place] [address], [place] [address] Nov, [facility] [address] [id number] [address] [place] [address], [place] [address] Nov, [facility] [address] [id number] [address] [place] [address], [place] [address] Nov, [facility] [address] [id number] [address] [place] [address], [place] [address] Nov, [facility] [address] [id number] [address] [place] [address], [place] [address] Nov, [facility] [address] [id number] [address] [place] [address], [place] [address] Nov, [facility] [address] [id number] [address] [place] [address], [place] [address] October, [facility] [address] [id number] [address] [place] [address], [place] [address] October, [facility] [address] [id number] [address] [place] [address], [place] [address] Sep, [facility] [address] [id number] [address] [place] [address], [place] [address] Sep, [facility] [address] [id number] [address] [place] [address], [place] [address] Sep, [facility] [address] [id number] [address] [place] [address], [place] [address] Sep, [facility] [address] [id number] [facility] [address] 17 Sep, 2013 [facility] [address] [id number] [address] [place] [address], [place] [address] Sep, [facility] [address] [id number] [address] [place] [address], [place] [address] Sep, [facility] [address] [id number] [address] [place] [address], [place] [address] Sep, [facility] [address] [id number] [address] [place] [address], [place] [address] Sep, [facility] [address] [id number] [address] [place] [address], [place] [address] Sep, [facility] [address] [id number] [address] [place] [address], [place] [address] Sep, [facility] [address] [id number] [address] [place] [address], [place] [address] Sep, [facility] [address] [id number] [address] [place] [address], [place] [address] Sep, [facility] [address] [id number] [address] [place] [address], [place] [address] Sep, [facility] [address] [id number] [address] [place] [address], [place] [address] Sep, [facility] [address] [id number] [address] [place] [address], [place] [address] Aug, [facility] [address] [id number] [address] [place] [address], [place] [address] Aug, [facility] [address] [id number] [address] [place] [address], [place] [address] Aug, [facility] [address] [id number] [address] [place] [address], [place] [address] Aug, [facility] [address] [id number] [address] [place] [address], [place] [address] Aug, [facility] [address] [id number] [address] [place] [address], [place] [address] Aug, [facility] [address] [id number] [address] [place] [address], [place] [address] Aug, [facility] [address] [id number] [address] [place] [address], [place] [address] Aug, [facility] [address] [id number] [address] [place] [address], [place] [address] Aug, [facility] [address] [id number] [address] [place] [address], [place] [address] Aug, [facility] [address] [id number] [address] [place] [address], [place] [address] Jun, [facility] [address] [id number] [address] [place] [address], [place] [address] Jun, [facility] [address] [id number] [address] [place] [address], [place] [address] Jun, [facility] [address] [id number] [address] [place] [address], [place] [address] Jun, [facility] [address] [id number] [address] [place] [address], [place] [address] Jun, [facility] [address] [id number] [address] [place] [address], [place] [address] Jun, [facility] [address] [id number] [address] [place] [address], [place] [address] Jun, [facility] [address] [id number] [address] [place] [address], [place] [address] Jun, [facility] [address] [id number] [address] [place] [address], [place] [address] Jun, [facility] [address] [id number] [address] [place] [address], [place] [address] Jun, [facility] [address] [id number] [facility] [address] Jun, [facility] [address] [id number] [facility] [address] Jun, [facility] [address] [id number] [facility] [address] Apr, [facility] [address] [id number] [address] [place] [address], [place] [address] Apr, [facility] [address] [id number] [address] [place] [address], [place] [address] Jan, [facility] [address] [id number] [address] [place] [address], [place] [address] Jan, [facility] [address] [id number] [address] [place] [address], [place] [address] Jan, [facility] [address] [id number] [address] [place] [address], [place] [address] Jan, [facility] [address] [id number] [address] [place] [address], [place] [address] Jan, [facility] [address] [id number] [address] [place] [address], [place] [address] Jan, [facility] [address] [id number] [address] [place] [address], [place] [address] Jan, [facility] [address] [place] [id number] Jan, [facility] [address] [id number] [address] [place] [address], [place] [address] Dec, [facility] [address] [id number] [address] [place] [address], [place] [address] Dec, [facility] [address] [id number] [address] [place] [address], [place] [address] Dec, [facility] [address] [id number] [address] [place] [address], [place] [address] Dec, [facility] [address] [facility] [id number] [address] [place] [address] Dec, [facility] [address] [facility] [id number] [address] [place] [address] Dec, [facility] [address] [facility] [id number] [address] [place] [address] Dec, [facility] [address] [facility] [id number] [address] [place] [address] Nov, [facility] [address] [facility] [id number] [address] [place] [address] Nov, IMMUNIZATIONS No Known Immunizations SOCIAL HISTORY Never Assessed REASON FOR VISIT PLAN OF CARE VITAL SIGNS Height 62 in 2013-11-07 Weight 283 lbs 2013-11-07 Temperature 97.6 degrees Fahrenheit 2013-11-07 Heart Rate 82 bpm 2013-11-07 Respiratory Rate 20 2013-11-07 Blood pressure systolic 130 mmHg 2013-11-07 Blood pressure diastolic 78 mmHg 2013-11-07 MEDICATIONS Unknown Medications RESULTS No Results PROCEDURES Procedure Date Ordered Result Body Site PROTHROMBIN TIME November 07, 2013 INSTRUCTIONS MEDICATIONS ADMINISTERED No Known Medications
--- OUTSIDE RECORDS SUMMARY | 2019-07-25 20:22 | XMS REPORT ---
Author Author Ayden Payne Doctor Organization [facility] Address Unknown Phone Unavailable Care Team Providers Care Manager Stars Name Role Phone Migration, Doctor Unavailable Unavailable PROBLEMS Type Condition ICD9-CM Code BKS88-GB Code Onset Dates Condition S tatus SNOMED Code Problem Personal history of fall V15.88 Activ e 228393853 Problem Routine general medical examination at [facility] y V70.0 Active 667835268 Problem Personal history of venous thrombosis and embolism V12.51 Active 331129093 Problem Status of other artificial opening of urinary tract V44.6 Active Problem Suicide and self-inflicted p oisoning by unspecified drug or medicinal substance E950.5 Active Problem Other dyspnea and respiratory abnormalities 786.09 Active 105952207 Problem Dysuria 788.1 Active 36529087 Problem Congestive heart failure, unspecified 428.0 Active 34322621 Problem Other screening breast examination V76.19 Active 22958696 Problem Unspecified hypotension 458.9 Active 34754859 Problem Other specified disorders of bladder 596.89 Active 17394032 Problem Encounter for long-term (current) use of other medications V58.69 Active 947319872 Problem Counseling on substance use and abuse V65.42 Active 426360223 Problem Unspecified myalgia and myositis 729.1 Active 007152787 Problem Pain in soft tissues of limb 729.5 A ctive 30461490 Problem Urinary tract infection, site not specified 599.0 Active 27662498 Problem Pain in joint, lower leg 719.46 Activ e 247666548 Problem Chronic airway obstruction, not elsewhere classified 496 Active 75621128 Problem Neurogenic bladder, NOS 596.54 Active 696838651 Problem Acute sinusitis, unspecified 461.9 A ctive 09159703 Problem Personal history of pulmonary embolism V12.55 Active 469318125 Problem Acute bronchitis 466.0 Active 105 49575 Problem Unspecified hearing loss 389.9 Activ e 87265568 Problem Unspecified otalgia 388.70 Active 26208617 Problem Unspecified hereditary and idiopathic peripheral neuropath y 356.9 Active 790580003 Problem Other and unspecified hyperlipidemia 272.4 Active 11218559 Problem Altered mental status 780.97 Active 795432584 Problem Diabetes mellitus without me ntion of complication, type II or unspecified type, not stated as uncontrolled 250.00 Active 104086951 Problem Shortness of breath 786.05 Active 944626055 Problem Other malaise and fatigue 780.79 Acti ve 980156146 Problem Other chronic pain 338.29 Active 8 3007374 Problem Nondependent tobacco use disorder 305.1 Active 431610076 Problem Amphetamine and other psychostimulant de pendence, 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 Active Problem Obesity, unspecified 278.00 Active 148691618 ALLERGIES No Information ENCOUNTERS Encounter Location Date Diagnosis [facility] [address] [address] Sep, [facility] [address] [address] Sep, [facility] [address] [address] Aug, [facility] [address] [address] Aug, [facility] [address] [address] Aug, [facility] [address] [address] Aug, [facility] [address] [address] Aug, [facility] [address] [address] Aug, [facility] [address] [address] Jul, [facility] [address] [address] Jul, [facility] [address] [address] Jul, [facility] [id number] [facility] [address] Jul, [facility] [place] [facility] [address] [facility] [id number] [place] [address] Jul, [facility] [place] [facility] [address] [id number] [place] [address] Jul, [facility] [place] [facility] [address] [id number] [place] [address] Jul, [facility] [place] [facility] [address] [id number] [place] [address] Jul, [facility] [place] [facility] [address] [id number] [place] [address] Jul, [facility] [place] [facility] [address] [id number] [place] [address] Jun, [facility] [place] [facility] [address] [id number] [place] [address] Jun, [facility] [place] [facility] [address] [id number] [place] [address] Jun, [facility] [place] [facility] [address] [id number] [place] [address] Jun, [facility] [place] [facility] [address] [id number] [place] [address] Jun, [facility] [place] [facility] [address] [id number] [place] [address] Jun, [facility] [place] [facility] [address] [id number] [place] [address] Jun, [facility] [place] [facility] [address] [id number] [place] [address] Jun, [facility] [place] [facility] [address] [id number] [place] [address] Jun, [facility] [place] [facility] [address] [id number] [place] [address] Jun, [facility] [place] [facility] [address] [id number] [place] [address] 30 May, 2014 [facility] [place] [facility] [address] [id number] [place] [address] May, [facility] [place] [facility] [address] [id number] [place] [address] May, [facility] [place] [facility] [address] [id number] [place] [address] May, [facility] [place] [facility] [address] [id number] [place] [address] May, [facility] [place] [facility] [address] [id number] [place] [address] May, [facility] [place] [facility] [address] [id number] [place] [address] May, [facility] [place] [facility] [address] [id number] [place] [address] May, [facility] [place] [facility] [address] [id number] [place] [address] 18 May, 2014 [facility] [place] [facility] [address] [id number] [place] [address] 15 May, 2014 [facility] [place] [facility] [address] [id number] [place] [address] May, [facility] [place] [facility] [address] [id number] [place] [address] Apr, [facility] [place] [facility] [address] [id number] [place] [address] Apr, [facility] [place] [facility] [address] [id number] [place] [address] Apr, [facility] [place] [facility] [address] [id number] [place] [address] Apr, [facility] [place] [facility] [address] [id number] [place] [address] Mar, [facility] [place] [facility] [address] [id number] [place] [address] Mar, [facility] [place] [facility] [address] [id number] [place] [address] Mar, [facility] [place] [facility] [address] [id number] [place] [address] Mar, [facility] [place] [facility] [address] [facility] [id number] [place] [address] Feb, [facility] [place] [facility] [address] [id number] [place] [address] Feb, [facility] [place] [facility] [address] [id number] [place] [address] Feb, [facility] [place] [facility] [address] [id number] [place] [address] Feb, [facility] [place] [facility] [address] [id number] [place] [address] Feb, [facility] [place] [facility] [address] [id number] [place] [address] Feb, [facility] [place] [facility] [address] [id number] [place] [address] Jan, [facility] [place] [facility] [address] [id number] [place] [address] Jan, [facility] [place] [facility] [address] [id number] [place] [address] Jan, [facility] [place] [facility] [address] [id number] [place] [address] Jan, [facility] [place] [facility] [address] [id number] [place] [address] Jan, [facility] [place] [facility] [address] [id number] [place] [address] Jan, [facility] [place] [facility] [address] [id number] [place] [address] Dec, [facility] [place] [facility] [address] [id number] [place] [address] Dec, [facility] [place] [facility] [address] [id number] [place] [address] Nov, [facility] [place] [facility] [address] [id number] [place] [address] Nov, [facility] [place] [facility] [address] [id number] [place] [address] Nov, [facility] [place] [facility] [address] [id number] [place] [address] Nov, [facility] [place] [facility] [address] [id number] [place] [address] Nov, [facility] [place] [facility] [address] [id number] [place] [address] Nov, [facility] [place] [facility] [address] [id number] [place] [address] Nov, [facility] [place] [facility] [address] [id number] [place] [address] October, [facility] [place] [facility] [address] [id number] [place] [address] October, [facility] [place] [facility] [address] [id number] [place] [address] Sep, [facility] [place] [facility] [address] [id number] [place] [address] Sep, [facility] [place] [facility] [address] [id number] [place] [address] Sep, [facility] [place] [facility] [address] [id number] [place] [address] Sep, [facility] [place] [facility] [address] [id number] [place] [address] 17 Sep, 2013 [facility] [place] [facility] [address] [facility] [id number] [place] [address] 16 Sep, 2013 [facility] [place] [facility] [address] [id number] [place] [address] Sep, [facility] [place] [facility] [address] [id number] [place] [address] Sep, [facility] [place] [facility] [address] [id number] [place] [address] 16 Sep, 2013 [facility] [place] [facility] [address] [facility] [id number] [facility] [address] 14 Sep, 2013 [facility] [place] [facility] [address] [facility] [id number] [facility] [place] [address] 14 Sep, 2013 [facility] [place] [facility] [address] [facility] [id number] [place] [address] Sep, [facility] [place] [facility] [address] [facility] [id number] [place] [address] Sep, [facility] [place] [facility] [address] [facility] [id number] [facility] [place] [address] 08 Sep, 2013 [facility] [place] [facility] [address] [facility] [id number] [facility] [place] [address] Sep, [facility] [place] [facility] [address] [id number] [place] [address] 24 Aug, 2013 [facility] [place] [facility] [address] [id number] [facility] [address] 24 Aug, 2013 [facility] [place] [facility] [address] [facility] [id number] [place] [address] 24 Aug, 2013 [facility] [place] [facility] [address] [id number] [facility] [address] Aug, [facility] [place] [facility] [address] [id number] [place] [address] Aug, [facility] [place] [facility] [address] [id number] [place] [address] Aug, [facility] [place] [facility] [address] [facility] [id number] [place] [address] Aug, [facility] [place] [facility] [address] [facility] [id number] [place] [address] Aug, [facility] [place] [facility] [address] [facility] [id number] [place] [address] Aug, [facility] [place] [facility] [address] [id number] [facility] [address] Aug, [facility] [place] [facility] [address] [id number] [place] [address] Jun, [facility] [place] [facility] [address] [id number] [place] [address] Jun, [facility] [place] [facility] [address] [id number] [place] [address] Jun, [facility] [place] [facility] [address] [id number] [place] [address] Jun, [facility] [place] [facility] [address] [id number] [place] [address] Jun, [facility] [place] [facility] [address] [facility] [id number] [place] [address] Jun, [facility] [place] [facility] [address] [id number] [place] [address] Jun, [facility] [place] [facility] [address] [id number] [place] [address] Jun, [facility] [place] [facility] [address] [id number] [place] [address] Jun, [facility] [place] [facility] [address] [id number] [place] [address] Jun, [facility] [place] [facility] [address] [id number] [place] [address] Jun, [facility] [place] [facility] [address] [id number] [place] [address] Jun, [facility] [place] [facility] [address] [id number] [place] [address] Apr, [facility] [place] [facility] [address] [id number] [place] [address] Apr, [facility] [place] [facility] [address] [id number] [place] [address] Jan, [facility] [place] [facility] [address] [id number] [place] [address] Jan, [facility] [place] [facility] [address] [id number] [place] [address] Jan, [facility] [place] [facility] [address] [id number] [place] [address] Jan, [facility] [address] [id number] [place] [address] Jan, [facility] [address] [id number] [place] [address] Jan, [facility] [address] [id number] [place] [address] Jan, [facility] [address] [place] [id number] Jan, [facility] [address] [id number] [place] [address] Dec, [facility] [id number] [place] [address] Dec, [facility] [id number] [place] [address] Dec, [facility] [id number] [place] [address] Dec, [facility] [id number] [place] [address] Dec, [facility] [id number] [place] [address] Dec, [facility] [address] [id number] [place] [address] Dec, [facility] [id number] [place] [address] Nov, [facility] [address] [id number] [place] [address] Nov, IMMUNIZATIONS No Known Immunizations SOCIAL HISTORY Never Assessed REASON FOR VISIT PLAN OF CARE VITAL SIGNS MEDICATIONS Unknown Medications RESULTS No Results PROCEDURES No Known procedures INSTRUCTIONS MEDICATIONS ADMINISTERED No Known Medications
--- OUTSIDE RECORDS SUMMARY | 2019-07-25 20:22 | XMS REPORT ---
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 Active Problem Suicide and self-inflicted p oisoning by unspecified drug or medicinal substance E950.5 Active Problem Other dyspnea and respiratory abnormalities 786.09 Active 547946478 Problem Dysuria 788.1 Active 49419311 Problem Congestive heart failure, unspecified 428.0 Active 49039084 Problem Other screening breast examination V76.19 Active 51015565 Problem Unspecified hypotension 458.9 Active 69844650 Problem Other specified disorders of bladder 596.89 Active 73238429 Problem Encounter for long-term (current) use of other medications V58.69 Active 867789293 Problem Counseling on substance use and abuse V65.42 Active 293900533 Problem Unspecified myalgia and myositis 729.1 Active 984591497 Problem Pain in soft tissues of limb 729.5 A ctive 35728829 Problem Urinary tract infection, site not specified 599.0 Active 07327763 Problem Pain in joint, lower leg 719.46 Activ e 985964250 Problem Chronic airway obstruction, not elsewhere classified 496 Active 39177780 Problem Neurogenic bladder, NOS 596.54 Active 062231425 Problem Acute sinusitis, unspecified 461.9 A ctive 85064447 Problem Personal history of pulmonary embolism V12.55 Active 026155489 Problem Acute bronchitis 466.0 Active 105 95476 Problem Unspecified hearing loss 389.9 Activ e 30512759 Problem Unspecified otalgia 388.70 Active 89721323 Problem Unspecified hereditary and idiopathic peripheral neuropath y 356.9 Active 750767873 Problem Other and unspecified hyperlipidemia 272.4 Active 68102409 Problem Altered mental status 780.97 Active 892335056 Problem Diabetes mellitus without me ntion of complication, type II or unspecified type, not stated as uncontrolled 250.00 Active 822608148 Problem Shortness of breath 786.05 Active 266606699 Problem Other malaise and fatigue 780.79 Acti ve 015336035 Problem Other chronic pain 338.29 Active 8 1763241 Problem Nondependent tobacco use disorder 305.1 Active 095741496 Problem Amphetamine and other psychostimulant de pendence, 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 Active Problem Obesity, unspecified 278.00 Active 402731658 ALLERGIES No Information ENCOUNTERS Encounter Location Date Diagnosis [facility] [address] [facility] [id number] [address] [place] [address] Sep, [facility] [address] [facility] [id number] [address] [place] [address] Sep, [facility] [address] [facility] [id number] [address] [place] [address] Aug, [facility] [address] [facility] [id number] [address] [place] [address] Aug, [facility] [address] [place] [id number] [address] [place] [address] Aug, [facility] [address] [facility] [id number] [address] [place] [address] Aug, [facility] [address] [facility] [id number] [address] [place] [address] Aug, [facility] [address] [facility] [id number] [address] [place] [address] Aug, [facility] [address] [facility] [id number] [address] [place] [address] Jul, [facility] [address] [facility] [id number] [address] [place] [address] Jul, [facility] [address] [place] [id number] [address] [place] [address] Jul, [facility] [address] [id number] [address] [place] [address], [place] [address] Jul, [facility] [address] [id number] [address] [place] [address], [place] [address] Jul, 2014 [facility] [address] [id number] [address] [place] [address], [place] [address] Jul, 2014 [facility] [address] [id number] [address] [place] [address], [place] [address] Jul, [facility] [address] [id number] [address] [place] [address], [place] [address] Jul, [facility] [address] [id number] [address] [place] [address], [place] [address] Jul, [facility] [address] [id number] [address] [place] [address], [place] [address] Jun, [facility] [address] [id number] [address] [place] [address], [place] [address] Jun, [facility] [address] [id number] [address] [place] [address], [place] [address] Jun, [facility] [address] [id number] [address] [place] [address], [place] [address] Jun, [facility] [address] [id number] [address] [place] [address], [place] [address] Jun, [facility] [address] [id number] [address] [place] [address] Jun, [facility] [address] [id number] [address] [place] [address] Jun, [facility] [address] [id number] [address] [place] [address] Jun, [facility] [address] [id number] [address] [place] [address] Jun, [facility] [address] [id number] [address] [place] [address], [place] [address] Jun, [facility] [address] [id number] [address] [place] [address], [place] [address] May, [facility] [address] [id number] [address] [place] [address], [place] [address] May, [facility] [address] [id number] [address] [place] [address], [place] [address] May, [facility] [address] [id number] [address] [place] [address], [place] [address] May, [facility] [address] [id number] [address] [place] [address], [place] [address] May, [facility] [address] [id number] [address] [place] [address], [place] [address] May, [facility] [address] [id number] [address] [place] [address], [place] [address] May, [facility] [address] [id number] [address] [place] [address], [place] [address] May, [facility] [address] [id number] [address] [place] [address], [place] [address] May, [facility] [address] [id number] [address] [place] [address], [place] [address] 15 May, 2014 [facility] [address] [id number] [address] [place] [address], [place] [address] 15 May, 2014 [facility] [address] [id number] [address] [place] [address], [place] [address] Apr, [facility] [address] [id number] [address] [place] [address], [place] [address] Apr, [facility] [address] [id number] [address] [place] [address], [place] [address] 17 Apr, 2014 [facility] [address] [id number] [address] [place] [address], [place] [address] Apr, [facility] [address] [id number] [address] [place] [address], [place] [address] Mar, [facility] [address] [id number] [address] [place] [address], [place] [address] Mar, [facility] [address] [id number] [address] [place] [address], [place] [address] Mar, [facility] [address] [id number] [address] [place] [address], [place] [address] Mar, [facility] [address] [id number] [address] [place] [address], [place] [address] Feb, [facility] [address] [id number] [address] [place] [address], [place] [address] Feb, [facility] [address] [id number] [address] [place] [address], [place] [address] Feb, [facility] [address] [id number] [address] [place] [address], [place] [address] Feb, [facility] [address] [id number] [address] [place] [address], [place] [address] 16 Feb, 2014 [facility] [address] [id number] [address] [place] [address], [place] [address] 16 Feb, 2014 [facility] [address] [id number] [address] [place] [address], [place] [address] Jan, [facility] [address] [id number] [address] [place] [address], [place] [address] Jan, [facility] [address] [id number] [address] [place] [address], [place] [address] Jan, [facility] [address] [id number] [address] [place] [address], [place] [address] Jan, [facility] [address] [id number] [address] [place] [address], [place] [address] Jan, [facility] [address] [id number] [address] [place] [address], [place] [address] Jan, [facility] [address] [id number] [address] [place] [address], [place] [address] Dec, [facility] [address] [id number] [address] [place] [address], [place] [address] Dec, [facility] [address] [id number] [address] [place] [address], [place] [address] Nov, [facility] [address] [id number] [address] [place] [address], [place] [address] Nov, [facility] [address] [id number] [address] [place] [address], [place] [address] Nov, [facility] [address] [id number] [address] [place] [address], [place] [address] Nov, [facility] [address] [id number] [address] [place] [address], [place] [address] Nov, [facility] [address] [id number] [address] [place] [address], [place] [address] Nov, [facility] [address] [id number] [address] [place] [address], [place] [address] Nov, [facility] [address] [id number] [address] [place] [address], [place] [address] October, [facility] [address] [id number] [address] [place] [address], [place] [address] October, [facility] [address] [id number] [address] [place] [address], [place] [address] Sep, [facility] [address] [id number] [address] [place] [address], [place] [address] Sep, [facility] [address] [id number] [address] [place] [address], [place] [address] Sep, [facility] [address] [id number] [address] [place] [address], [place] [address] Sep, [facility] [address] [id number] [facility] [place] [address] 17 Sep, 2013 [facility] [address] [id number] [address] [place] [address], [place] [address] Sep, [facility] [address] [id number] [address] [place] [address], [place] [address] Sep, [facility] [address] [id number] [address] [place] [address], [place] [address] Sep, [facility] [address] [id number] [address] [place] [address], [place] [address] Sep, [facility] [address] [id number] [address] [place] [address], [place] [address] Sep, [facility] [address] [id number] [address] [place] [address], [place] [address] Sep, [facility] [address] [id number] [address] [place] [address], [place] [address] Sep, [facility] [address] [id number] [address] [place] [address], [place] [address] Sep, [facility] [address] [id number] [address] [place] [address], [place] [address] Sep, [facility] [address] [id number] [address] [place] [address], [place] [address] Sep, [facility] [address] [id number] [address] [place] [address], [place] [address] Aug, [facility] [address] [id number] [address] [place] [address], [place] [address] Aug, [facility] [address] [id number] [address] [place] [address], [place] [address] Aug, [facility] [address] [id number] [address] [place] [address], [place] [address] Aug, [facility] [address] [id number] [address] [place] [address], [place] [address] Aug, [facility] [address] [id number] [address] [place] [address], [place] [address] Aug, [facility] [address] [id number] [address] [place] [address], [place] [address] Aug, [facility] [address] [id number] [address] [place] [address], [place] [address] Aug, [facility] [address] [id number] [address] [place] [address], [place] [address] Aug, [facility] [address] [id number] [address] [place] [address], [place] [address] Aug, [facility] [address] [id number] [address] [place] [address], [place] [address] Jun, [facility] [address] [id number] [address] [place] [address], [place] [address] Jun, [facility] [address] [id number] [address] [place] [address], [place] [address] Jun, [facility] [address] [id number] [address] [place] [address], [place] [address] Jun, [facility] [address] [id number] [address] [place] [address], [place] [address] Jun, [facility] [address] [id number] [address] [place] [address], [place] [address] Jun, [facility] [address] [id number] [address] [place] [address], [place] [address] Jun, [facility] [address] [id number] [address] [place] [address], [place] [address] Jun, [facility] [address] [id number] [address] [place] [address], [place] [address] Jun, [facility] [address] [id number] [address] [place] [address], [place] [address] Jun, [facility] [address] [id number] [facility] [place] [address] Jun, [facility] [address] [id number] [facility] [place] [address] Jun, [facility] [address] [id number] [facility] [place] [address] Apr, [facility] [address] [id number] [address] [place] [address], [place] [address] Apr, [facility] [address] [id number] [address] [place] [address], [place] [address] Jan, [facility] [address] [id number] [address] [place] [address], [place] [address] Jan, [facility] [address] [id number] [address] [place] [address], [place] [address] Jan, [facility] [address] [id number] [address] [place] [address], [place] [address] Jan, [facility] [address] [id number] [address] [place] [address], [place] [address] Jan, [facility] [address] [id number] [address] [place] [address], [place] [address] Jan, [facility] [address] [id number] [address] [place] [address], [place] [address] Jan, [facility] [address] [place] [id number] Jan, [facility] [address] [id number] [address] [place] [address], [place] [address] Dec, [facility] [address] [id number] [address] [place] [address], [place] [address] Dec, [facility] [address] [id number] [address] [place] [address], [place] [address] Dec, [facility] [address] [id number] [address] [place] [address], [place] [address] Dec, [facility] [address] [facility] [id number] [address] [place] [address] Dec, [facility] [address] [facility] [id number] [address] [place] [address] Dec, [facility] [address] [facility] [id number] [address] [place] [address] Dec, [facility] [address] [facility] [id number] [address] [place] [address] Nov, [facility] [address] [facility] [id number] [address] [place] [address] Nov, IMMUNIZATIONS No Known Immunizations SOCIAL HISTORY Never Assessed REASON FOR VISIT PLAN OF CARE VITAL SIGNS MEDICATIONS Unknown Medications RESULTS No Results PROCEDURES No Known procedures INSTRUCTIONS MEDICATIONS ADMINISTERED No Known Medications
--- OUTSIDE RECORDS SUMMARY | 2019-07-25 20:22 | XMS REPORT ---
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 Active Problem Suicide and self-inflicted p oisoning by unspecified drug or medicinal substance E950.5 Active Problem Other dyspnea and respiratory abnormalities 786.09 Active 491141736 Problem Dysuria 788.1 Active 98046911 Problem Congestive heart failure, unspecified 428.0 Active 20094131 Problem Other screening breast examination V76.19 Active 24991529 Problem Unspecified hypotension 458.9 Active 74141770 Problem Other specified disorders of bladder 596.89 Active 12668934 Problem Encounter for long-term (current) use of other medications V58.69 Active 567159971 Problem Counseling on substance use and abuse V65.42 Active 610434645 Problem Unspecified myalgia and myositis 729.1 Active 496042319 Problem Pain in soft tissues of limb 729.5 A ctive 18303883 Problem Urinary tract infection, site not specified 599.0 Active 37122969 Problem Pain in joint, lower leg 719.46 Activ e 141333228 Problem Chronic airway obstruction, not elsewhere classified 496 Active 39576764 Problem Neurogenic bladder, NOS 596.54 Active 760280103 Problem Acute sinusitis, unspecified 461.9 A ctive 44783836 Problem Personal history of pulmonary embolism V12.55 Active 263928171 Problem Acute bronchitis 466.0 Active 105 88531 Problem Unspecified hearing loss 389.9 Activ e 65360241 Problem Unspecified otalgia 388.70 Active 59232306 Problem Unspecified hereditary and idiopathic peripheral neuropath y 356.9 Active 425378225 Problem Other and unspecified hyperlipidemia 272.4 Active 83199026 Problem Altered mental status 780.97 Active 848613681 Problem Diabetes mellitus without me ntion of complication, type II or unspecified type, not stated as uncontrolled 250.00 Active 802131141 Problem Shortness of breath 786.05 Active 302079802 Problem Other malaise and fatigue 780.79 Acti ve 428630345 Problem Other chronic pain 338.29 Active 8 3400882 Problem Nondependent tobacco use disorder 305.1 Active 060739896 Problem Amphetamine and other psychostimulant de pendence, 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 [id number] [address] [place] [address] Sep, [facility] [address] [facility] [id number] [address] [place] [address] Sep, [facility] [address] [facility] [id number] [address] [place] [address] Aug, [facility] [address] [facility] [id number] [address] [place] [address] Aug, [facility] [address] [place] [place] [id number] [address] [place] [address] Aug, [facility] [address] [facility] [id number] [address] [place] [address] Aug, [facility] [address] [facility] [id number] [address] [place] [address] Aug, [facility] [address] [facility] [id number] [address] [place] [address] Aug, [facility] [address] [facility] [id number] [address] [place] [address] Jul, [facility] [address] [facility] [id number] [address] [place] [address] Jul, [facility] [address] [place] [id number] [address] [place] [address] Jul, [facility] [address] [id number] [address] [place] [address], [place] [address] Jul, [facility] [address] [id number] [address] [place] [address], [place] [address] Jul, 2014 [facility] [address] [id number] [address] [place] [address], [place] [address] Jul, 2014 [facility] [address] [id number] [address] [place] [address], [place] [address] Jul, [facility] [address] [id number] [address] [place] [address], [place] [address] Jul, [facility] [address] [id number] [address] [place] [address], [place] [address] Jul, [facility] [address] [id number] [address] [place] [address], [place] [address] Jun, [facility] [address] [id number] [address] [place] [address], [place] [address] Jun, [facility] [address] [id number] [address] [place] [address], [place] [address] Jun, [facility] [address] [id number] [address] [place] [address], [place] [address] Jun, [facility] [address] [id number] [address] [place] [address], [place] [address] Jun, [facility] [address] [id number] [address] [place] [address] Jun, [facility] [address] [id number] [address] [place] [address] Jun, [facility] [address] [id number] [address] [place] [address] Jun, [facility] [address] [id number] [address] [place] [address] Jun, [facility] [address] [id number] [address] [place] [address], [place] [address] Jun, [facility] [address] [id number] [address] [place] [address], [place] [address] May, [facility] [address] [id number] [address] [place] [address], [place] [address] May, [facility] [address] [id number] [address] [place] [address], [place] [address] May, [facility] [address] [id number] [address] [place] [address], [place] [address] May, [facility] [address] [id number] [address] [place] [address], [place] [address] May, [facility] [address] [id number] [address] [place] [address], [place] [address] May, [facility] [address] [id number] [address] [place] [address], [place] [address] May, [facility] [address] [id number] [address] [place] [address], [place] [address] May, [facility] [address] [id number] [address] [place] [address], [place] [address] May, [facility] [address] [id number] [address] [place] [address], [place] [address] 15 May, 2014 [facility] [address] [id number] [address] [place] [address], [place] [address] 15 May, 2014 [facility] [address] [id number] [address] [place] [address], [place] [address] Apr, [facility] [address] [id number] [address] [place] [address], [place] [address] Apr, [facility] [address] [id number] [address] [place] [address], [place] [address] 17 Apr, 2014 [facility] [address] [id number] [address] [place] [address], [place] [address] Apr, [facility] [address] [id number] [address] [place] [address], [place] [address] Mar, [facility] [address] [id number] [address] [place] [address], [place] [address] Mar, [facility] [address] [id number] [address] [place] [address], [place] [address] Mar, [facility] [address] [id number] [address] [place] [address], [place] [address] Mar, [facility] [address] [id number] [address] [place] [address], [place] [address] Feb, [facility] [address] [id number] [address] [place] [address], [place] [address] Feb, [facility] [address] [id number] [address] [place] [address], [place] [address] Feb, [facility] [address] [id number] [address] [place] [address], [place] [address] Feb, [facility] [address] [id number] [address] [place] [address], [place] [address] 16 Feb, 2014 [facility] [address] [id number] [address] [place] [address], [place] [address] 16 Feb, 2014 [facility] [address] [id number] [address] [place] [address], [place] [address] Jan, [facility] [address] [id number] [address] [place] [address], [place] [address] Jan, [facility] [address] [id number] [address] [place] [address], [place] [address] Jan, [facility] [address] [id number] [address] [place] [address], [place] [address] Jan, [facility] [address] [id number] [address] [place] [address], [place] [address] Jan, [facility] [address] [id number] [address] [place] [address], [place] [address] Jan, [facility] [address] [id number] [address] [place] [address], [place] [address] Dec, [facility] [address] [id number] [address] [place] [address], [place] [address] Dec, [facility] [address] [id number] [address] [place] [address], [place] [address] Nov, [facility] [address] [id number] [address] [place] [address], [place] [address] Nov, [facility] [address] [id number] [address] [place] [address], [place] [address] Nov, [facility] [address] [id number] [address] [place] [address], [place] [address] Nov, [facility] [address] [id number] [address] [place] [address], [place] [address] Nov, [facility] [address] [id number] [address] [place] [address], [place] [address] Nov, [facility] [address] [id number] [address] [place] [address], [place] [address] Nov, [facility] [address] [id number] [address] [place] [address], [place] [address] October, [facility] [address] [id number] [address] [place] [address], [place] [address] October, [facility] [address] [id number] [address] [place] [address], [place] [address] Sep, [facility] [address] [id number] [address] [place] [address], [place] [address] Sep, [facility] [address] [id number] [address] [place] [address], [place] [address] Sep, [facility] [address] [id number] [address] [place] [address], [place] [address] Sep, [facility] [address] [id number] [facility] [place] [address] 17 Sep, 2013 [facility] [address] [id number] [address] [place] [address], [place] [address] Sep, [facility] [address] [id number] [address] [place] [address], [place] [address] Sep, [facility] [address] [id number] [address] [place] [address], [place] [address] Sep, [facility] [address] [id number] [address] [place] [address], [place] [address] Sep, [facility] [address] [id number] [address] [place] [address], [place] [address] Sep, [facility] [address] [id number] [address] [place] [address], [place] [address] Sep, [facility] [address] [id number] [address] [place] [address], [place] [address] Sep, [facility] [address] [id number] [address] [place] [address], [place] [address] Sep, [facility] [address] [id number] [address] [place] [address], [place] [address] Sep, [facility] [address] [id number] [address] [place] [address], [place] [address] Sep, [facility] [address] [id number] [address] [place] [address], [place] [address] Aug, [facility] [address] [id number] [address] [place] [address], [place] [address] Aug, [facility] [address] [id number] [address] [place] [address], [place] [address] Aug, [facility] [address] [id number] [address] [place] [address], [place] [address] Aug, [facility] [address] [id number] [address] [place] [address], [place] [address] Aug, [facility] [address] [id number] [address] [place] [address], [place] [address] Aug, [facility] [address] [id number] [address] [place] [address], [place] [address] Aug, [facility] [address] [id number] [address] [place] [address], [place] [address] Aug, [facility] [address] [id number] [address] [place] [address], [place] [address] Aug, [facility] [address] [id number] [address] [place] [address], [place] [address] Aug, [facility] [address] [id number] [address] [place] [address], [place] [address] Jun, [facility] [address] [id number] [address] [place] [address], [place] [address] Jun, [facility] [address] [id number] [address] [place] [address], [place] [address] Jun, [facility] [address] [id number] [address] [place] [address], [place] [address] Jun, [facility] [address] [id number] [address] [place] [address], [place] [address] Jun, [facility] [address] [id number] [address] [place] [address], [place] [address] Jun, [facility] [address] [id number] [address] [place] [address], [place] [address] Jun, [facility] [address] [id number] [address] [place] [address], [place] [address] Jun, [facility] [address] [id number] [address] [place] [address], [place] [address] Jun, [facility] [address] [id number] [address] [place] [address], [place] [address] Jun, [facility] [address] [id number] [facility] [place] [address] Jun, [facility] [address] [id number] [facility] [place] [address] Jun, [facility] [address] [id number] [facility] [place] [address] Apr, [facility] [address] [id number] [address] [place] [address], [place] [address] Apr, [facility] [address] [id number] [address] [place] [address], [place] [address] Jan, [facility] [address] [id number] [address] [place] [address], [place] [address] Jan, [facility] [address] [id number] [address] [place] [address], [place] [address] Jan, [facility] [address] [id number] [address] [place] [address], [place] [address] Jan, [facility] [address] [id number] [address] [place] [address], [place] [address] Jan, [facility] [address] [id number] [address] [place] [address], [place] [address] Jan, [facility] [address] [id number] [address] [place] [address], [place] [address] Jan, [facility] [address] [place] [id number] Jan, [facility] [address] [id number] [address] [place] [address], [place] [address] Dec, [facility] [address] [id number] [address] [place] [address], [place] [address] Dec, [facility] [address] [id number] [address] [place] [address], [place] [address] Dec, [facility] [address] [id number] [address] [place] [address], [place] [address] Dec, [facility] [address] [facility] [id number] [address] [place] [address] Dec, [facility] [address] [facility] [id number] [address] [place] [address] Dec, [facility] [address] [facility] [id number] [address] [place] [address] Dec, [facility] [address] [facility] [id number] [address] [place] [address] Nov, [facility] [address] [facility] [id number] [address] [place] [address] Nov, IMMUNIZATIONS No Known Immunizations SOCIAL HISTORY Never Assessed REASON FOR VISIT PLAN OF CARE VITAL SIGNS MEDICATIONS Unknown Medications RESULTS No Results PROCEDURES No Known procedures INSTRUCTIONS MEDICATIONS ADMINISTERED No Known Medications
--- OUTSIDE RECORDS SUMMARY | 2019-07-25 20:22 | XMS REPORT ---
Author Author Ayden Payne Doctor Organization [facility] Address Unknown Phone Unavailable Care Team Providers Care Jawbone Breaker Name Role Phone Migration, Doctor Unavailable Unavailable PROBLEMS Type Condition ICD9-CM Code [id number] Code Onset Dates Condition S tatus SNOMED Code Problem Personal history of fall V15.88 Activ e 091988103 Problem Routine general medical examination at 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 Active Problem Suicide and self-inflicted p oisoning by unspecified drug or medicinal substance E950.5 Active Problem Other dyspnea and respiratory abnormalities 786.09 Active 731091494 Problem Dysuria 788.1 Active 76241467 Problem Congestive heart failure, unspecified 428.0 Active 53819469 Problem Other screening breast examination V76.19 Active 80377889 Problem Unspecified hypotension 458.9 Active 30499100 Problem Other specified disorders of bladder 596.89 Active 67658140 Problem Encounter for long-term (current) use of other medications V58.69 Active 321869736 Problem Counseling on substance use and abuse V65.42 Active 316739197 Problem Unspecified myalgia and myositis 729.1 Active 815032476 Problem Pain in soft tissues of limb 729.5 A ctive 74048839 Problem Urinary tract infection, site not specified 599.0 Active 43563684 Problem Pain in joint, lower leg 719.46 Activ e 896475749 Problem Chronic airway obstruction, not elsewhere classified 496 Active 74186909 Problem Neurogenic bladder, NOS 596.54 Active 100071967 Problem Acute sinusitis, unspecified 461.9 A ctive 16101360 Problem Personal history of pulmonary embolism V12.55 Active 806149053 Problem Acute bronchitis 466.0 Active 105 00056 Problem Unspecified hearing loss 389.9 Activ e 94563618 Problem Unspecified otalgia 388.70 Active 59225250 Problem Unspecified hereditary and idiopathic peripheral neuropath y 356.9 Active 887546712 Problem Other and unspecified hyperlipidemia 272.4 Active 67064018 Problem Altered mental status 780.97 Active 577937730 Problem Diabetes mellitus without me ntion of complication, type II or unspecified type, not stated as uncontrolled 250.00 Active 986427076 Problem Shortness of breath 786.05 Active 912876352 Problem Other malaise and fatigue 780.79 Acti ve 472822814 Problem Other chronic pain 338.29 Active 8 9016495 Problem Nondependent tobacco use disorder 305.1 Active 431807623 Problem Amphetamine and other psychostimulant de pendence, 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 Active Problem Obesity, unspecified 278.00 Active 518390896 ALLERGIES No Information ENCOUNTERS Encounter Location Date Diagnosis [facility] [address] [facility] [id number] [address] [place] [address] Sep, [facility] [address] [facility] [id number] [address] [place] [address] Sep, [facility] [address] [facility] [id number] [address] [place] [address] Aug, [facility] [address] [facility] [id number] [address] [place] [address] Aug, [facility] [address] [place] [id number] [address] [place] [address] Aug, [facility] [address] [facility] [id number] [address] [place] [address] Aug, [facility] [address] [facility] [id number] [address] [place] [address] Aug, [facility] [address] [facility] [id number] [address] [place] [address] Aug, [facility] [address] [facility] [id number] [address] [place] [address] Jul, [facility] [address] [facility] [id number] [address] [place] [address] Jul, [facility] [address] [place] [id number] [address] [place] [address] Jul, [facility] [address] [id number] [address] [place] [address], [place] [address] Jul, [facility] [address] [id number] [address] [place] [address], [place] [address] Jul, 2014 [facility] [address] [id number] [address] [place] [address], [place] [address] Jul, 2014 [facility] [address] [id number] [address] [place] [address], [place] [address] Jul, [facility] [address] [id number] [address] [place] [address], [place] [address] Jul, [facility] [address] [id number] [address] [place] [address], [place] [address] Jul, [facility] [address] [id number] [address] [place] [address], [place] [address] Jun, [facility] [address] [id number] [address] [place] [address], [place] [address] Jun, [facility] [address] [id number] [address] [place] [address], [place] [address] Jun, [facility] [address] [id number] [address] [place] [address], [place] [address] Jun, [facility] [address] [id number] [address] [place] [address], [place] [address] Jun, [facility] [address] [id number] [address] [place] [address] Jun, [facility] [address] [id number] [address] [place] [address] Jun, [facility] [address] [id number] [address] [place] [address] Jun, [facility] [address] [id number] [address] [place] [address] Jun, [facility] [address] [id number] [address] [place] [address], [place] [address] Jun, [facility] [address] [id number] [address] [place] [address], [place] [address] May, [facility] [address] [id number] [address] [place] [address], [place] [address] May, [facility] [address] [id number] [address] [place] [address], [place] [address] May, [facility] [address] [id number] [address] [place] [address], [place] [address] May, [facility] [address] [id number] [address] [place] [address], [place] [address] May, [facility] [address] [id number] [address] [place] [address], [place] [address] May, [facility] [address] [id number] [address] [place] [address], [place] [address] May, [facility] [address] [id number] [address] [place] [address], [place] [address] May, [facility] [address] [id number] [address] [place] [address], [place] [address] May, [facility] [address] [id number] [address] [place] [address], [place] [address] 15 May, 2014 [facility] [address] [id number] [address] [place] [address], [place] [address] 15 May, 2014 [facility] [address] [id number] [address] [place] [address], [place] [address] Apr, [facility] [address] [id number] [address] [place] [address], [place] [address] Apr, [facility] [address] [id number] [address] [place] [address], [place] [address] 17 Apr, 2014 [facility] [address] [id number] [address] [place] [address], [place] [address] Apr, [facility] [address] [id number] [address] [place] [address], [place] [address] Mar, [facility] [address] [id number] [address] [place] [address], [place] [address] Mar, [facility] [address] [id number] [address] [place] [address], [place] [address] Mar, [facility] [address] [id number] [address] [place] [address], [place] [address] Mar, [facility] [address] [id number] [address] [place] [address], [place] [address] Feb, [facility] [address] [id number] [address] [place] [address], [place] [address] Feb, [facility] [address] [id number] [address] [place] [address], [place] [address] Feb, [facility] [address] [id number] [address] [place] [address], [place] [address] Feb, [facility] [address] [id number] [address] [place] [address], [place] [address] 16 Feb, 2014 [facility] [address] [id number] [address] [place] [address], [place] [address] 16 Feb, 2014 [facility] [address] [id number] [address] [place] [address], [place] [address] Jan, [facility] [address] [id number] [address] [place] [address], [place] [address] Jan, [facility] [address] [id number] [address] [place] [address], [place] [address] Jan, [facility] [address] [id number] [address] [place] [address], [place] [address] Jan, [facility] [address] [id number] [address] [place] [address], [place] [address] Jan, [facility] [address] [id number] [address] [place] [address], [place] [address] Jan, [facility] [address] [id number] [address] [place] [address], [place] [address] Dec, [facility] [address] [id number] [address] [place] [address], [place] [address] Dec, [facility] [address] [id number] [address] [place] [address], [place] [address] Nov, [facility] [address] [id number] [address] [place] [address], [place] [address] Nov, [facility] [address] [id number] [address] [place] [address], [place] [address] Nov, [facility] [address] [id number] [address] [place] [address], [place] [address] Nov, [facility] [address] [id number] [address] [place] [address], [place] [address] Nov, [facility] [address] [id number] [address] [place] [address], [place] [address] Nov, [facility] [address] [id number] [address] [place] [address], [place] [address] Nov, [facility] [address] [id number] [address] [place] [address], [place] [address] October, [facility] [address] [id number] [address] [place] [address], [place] [address] October, [facility] [address] [id number] [address] [place] [address], [place] [address] Sep, [facility] [address] [id number] [address] [place] [address], [place] [address] Sep, [facility] [address] [id number] [address] [place] [address], [place] [address] Sep, [facility] [address] [id number] [address] [place] [address], [place] [address] Sep, [facility] [address] [id number] [facility] [address] 17 Sep, 2013 [facility] [address] [id number] [address] [place] [address], [place] [address] Sep, [facility] [address] [id number] [address] [place] [address], [place] [address] Sep, [facility] [address] [id number] [address] [place] [address], [place] [address] Sep, [facility] [address] [id number] [address] [place] [address], [place] [address] Sep, [facility] [address] [id number] [address] [place] [address], [place] [address] Sep, [facility] [address] [id number] [address] [place] [address], [place] [address] Sep, [facility] [address] [id number] [address] [place] [address], [place] [address] Sep, [facility] [address] [id number] [address] [place] [address], [place] [address] Sep, [facility] [address] [id number] [address] [place] [address], [place] [address] Sep, [facility] [address] [id number] [address] [place] [address], [place] [address] Sep, [facility] [address] [id number] [address] [place] [address], [place] [address] Aug, [facility] [address] [id number] [address] [place] [address], [place] [address] Aug, [facility] [address] [id number] [address] [place] [address], [place] [address] Aug, [facility] [address] [id number] [address] [place] [address], [place] [address] Aug, [facility] [address] [id number] [address] [place] [address], [place] [address] Aug, [facility] [address] [id number] [address] [place] [address], [place] [address] Aug, [facility] [address] [id number] [address] [place] [address], [place] [address] Aug, [facility] [address] [id number] [address] [place] [address], [place] [address] Aug, [facility] [address] [id number] [address] [place] [address], [place] [address] Aug, [facility] [address] [id number] [address] [place] [address], [place] [address] Aug, [facility] [address] [id number] [address] [place] [address], [place] [address] Jun, [facility] [address] [id number] [address] [place] [address], [place] [address] Jun, [facility] [address] [id number] [address] [place] [address], [place] [address] Jun, [facility] [address] [id number] [address] [place] [address], [place] [address] Jun, [facility] [address] [id number] [address] [place] [address], [place] [address] Jun, [facility] [address] [id number] [address] [place] [address], [place] [address] Jun, [facility] [address] [id number] [address] [place] [address], [place] [address] Jun, [facility] [address] [id number] [address] [place] [address], [place] [address] Jun, [facility] [address] [id number] [address] [place] [address], [place] [address] Jun, [facility] [address] [id number] [address] [place] [address], [place] [address] Jun, [facility] [address] [id number] [facility] [address] Jun, [facility] [address] [id number] [facility] [address] Jun, [facility] [address] [id number] [facility] [address] Apr, [facility] [address] [id number] [address] [place] [address], [place] [address] Apr, [facility] [address] [id number] [address] [place] [address], [place] [address] Jan, [facility] [address] [id number] [address] [place] [address], [place] [address] Jan, [facility] [address] [id number] [address] [place] [address], [place] [address] Jan, [facility] [address] [id number] [address] [place] [address], [place] [address] Jan, [facility] [address] [id number] [address] [place] [address], [place] [address] Jan, [facility] [address] [id number] [address] [place] [address], [place] [address] Jan, [facility] [address] [id number] [address] [place] [address], [place] [address] Jan, [facility] [address] [place] [id number] Jan, [facility] [address] [id number] [address] [place] [address], [place] [address] Dec, [facility] [address] [id number] [address] [place] [address], [place] [address] Dec, [facility] [address] [id number] [address] [place] [address], [place] [address] Dec, [facility] [address] [id number] [address] [place] [address], [place] [address] Dec, [facility] [address] [facility] [id number] [address] [place] [address] Dec, [facility] [address] [facility] [id number] [address] [place] [address] Dec, [facility] [address] [facility] [id number] [address] [place] [address] Dec, [facility] [address] [facility] [id number] [address] [place] [address] Nov, [facility] [address] [facility] [id number] [address] [place] [address] Nov, IMMUNIZATIONS No Known Immunizations SOCIAL HISTORY Never Assessed REASON FOR VISIT PLAN OF CARE VITAL SIGNS Height 62 in 2014-05-22 Weight 268.3 lbs 2014-05-22 Temperature 99 degrees Fahrenheit 2014-05-22 Heart Rate 96 bpm 2014-05-22 Respiratory Rate 22 2014-05-22 Blood pressure systolic 110 mmHg 2014-05-22 Blood pressure diastolic 70 mmHg 2014-05-22 MEDICATIONS Unknown Medications RESULTS No Results PROCEDURES Procedure Date Ordered Result Body Site COMPLETE CBC W/AUTO DIFF WBC May 22, 2014 ASSAY THYROID STIM HORMONE May 22, 2014 NATRIURETIC PEPTIDE May 22, 2014 GLYCATED HEMOGLOBIN TEST May 22, 2014 VITAMIN B-12 May 22, 2014 CT PELVIS W/O DYE May 22, 2014 VENIPUNCT, ROUTINE* May 22, 2014 INSTRUCTIONS MEDICATIONS ADMINISTERED No Known Medications
--- OUTSIDE RECORDS SUMMARY | 2019-07-25 20:22 | XMS REPORT ---
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 Active Problem Suicide and self-inflicted p oisoning by unspecified drug or medicinal substance E950.5 Active Problem Other dyspnea and respiratory abnormalities 786.09 Active 475807893 Problem Dysuria 788.1 Active 16998204 Problem Congestive heart failure, unspecified 428.0 Active 65073428 Problem Other screening breast examination V76.19 Active 84570724 Problem Unspecified hypotension 458.9 Active 15224221 Problem Other specified disorders of bladder 596.89 Active 60395898 Problem Encounter for long-term (current) use of other medications V58.69 Active 508586984 Problem Counseling on substance use and abuse V65.42 Active 547441873 Problem Unspecified myalgia and myositis 729.1 Active 619311531 Problem Pain in soft tissues of limb 729.5 A ctive 59529719 Problem Urinary tract infection, site not specified 599.0 Active 61431710 Problem Pain in joint, lower leg 719.46 Activ e 221439464 Problem Chronic airway obstruction, not elsewhere classified 496 Active 72631292 Problem Neurogenic bladder, NOS 596.54 Active 049391131 Problem Acute sinusitis, unspecified 461.9 A ctive 99048740 Problem Personal history of pulmonary embolism V12.55 Active 805424380 Problem Acute bronchitis 466.0 Active 105 04403 Problem Unspecified hearing loss 389.9 Activ e 02763736 Problem Unspecified otalgia 388.70 Active 92468098 Problem Unspecified hereditary and idiopathic peripheral neuropath y 356.9 Active 708386402 Problem Other and unspecified hyperlipidemia 272.4 Active 83787938 Problem Altered mental status 780.97 Active 789959401 Problem Diabetes mellitus without me ntion of complication, type II or unspecified type, not stated as uncontrolled 250.00 Active 509584998 Problem Shortness of breath 786.05 Active 885186481 Problem Other malaise and fatigue 780.79 Acti ve 134516867 Problem Other chronic pain 338.29 Active 8 3472674 Problem Nondependent tobacco use disorder 305.1 Active 548027615 Problem Amphetamine and other psychostimulant de pendence, 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 Active Problem Obesity, unspecified 278.00 Active 864084176 ALLERGIES No Information ENCOUNTERS Encounter Location Date Diagnosis [facility], [place], [facility] [address] [address] Sep, [facility] [place] [address] [address] Sep, [facility] [place] [address] [address] Aug, [facility] [place] [address] [address] Aug, [facility] [place] [address] [address] Aug, [facility] [place] [address] [address] Aug, [facility] [place] [address] [address] Aug, [facility] [place] [address] [address] Aug, [facility] [place] [address] [address] Jul, [facility] [place] [address] [address] Jul, [facility] [place] [address] [address] Jul, [facility] [place] [address] [id number] [facility] [place] [address] Jul, [facility] [place] [facility] [address] [facility] [id number] [place] [address] Jul, [facility] [place] [facility] [address] [id number] [place] [address] Jul, [facility] [place] [facility] [address] [id number] [place] [address] Jul, [facility] [place] [facility] [address] [id number] [place] [address] Jul, [facility] [place] [facility] [address] [id number] [place] [address] Jul, [facility] [place] [facility] [address] [id number] [place] [address] Jun, [facility] [place] [facility] [address] [id number] [place] [address] Jun, [facility] [place] [facility] [address] [id number] [place] [address] Jun, [facility] [place] [facility] [address] [id number] [place] [address] Jun, [facility] [place] [facility] [address] [id number] [place] [address] Jun, [facility] [place] [facility] [address] [id number] [place] [address] Jun, [facility] [place] [facility] [address] [id number] [place] [address] Jun, [facility] [place] [facility] [address] [id number] [place] [address] Jun, [facility] [place] [facility] [address] [id number] [place] [address] Jun, [facility] [place] [facility] [address] [id number] [place] [address] Jun, [facility] [place] [facility] [address] [id number] [place] [address] 30 May, 2014 [facility] [place] [facility] [address] [id number] [place] [address] May, [facility] [place] [facility] [address] [id number] [place] [address] May, [facility] [place] [facility] [address] [id number] [place] [address] May, [facility] [place] [facility] [address] [id number] [place] [address] May, [facility] [place] [facility] [address] [id number] [place] [address] May, [facility] [place] [facility] [address] [id number] [place] [address] May, [facility] [place] [facility] [address] [id number] [place] [address] May, [facility] [place] [facility] [address] [id number] [place] [address] 18 May, 2014 [facility] [place] [facility] [address] [id number] [place] [address] 15 May, 2014 [facility] [place] [facility] [address] [id number] [place] [address] May, [facility] [place] [facility] [address] [id number] [place] [address] Apr, [facility] [place] [facility] [address] [id number] [place] [address] Apr, [facility] [place] [facility] [address] [id number] [place] [address] Apr, [facility] [place] [facility] [address] [id number] [place] [address] Apr, [facility] [place] [facility] [address] [id number] [place] [address] Mar, [facility] [place] [facility] [address] [id number] [place] [address] Mar, [facility] [place] [facility] [address] [id number] [place] [address] Mar, [facility] [place] [facility] [address] [id number] [place] [address] Mar, [facility] [place] [facility] [address] [facility] [id number] [place] [address] Feb, [facility] [place] [facility] [address] [id number] [place] [address] Feb, [facility] [place] [facility] [address] [id number] [place] [address] Feb, [facility] [place] [facility] [address] [id number] [place] [address] Feb, [facility] [place] [facility] [address] [id number] [place] [address] Feb, [facility] [place] [facility] [address] [id number] [place] [address] Feb, [facility] [place] [facility] [address] [id number] [place] [address] Jan, [facility] [place] [facility] [address] [id number] [place] [address] Jan, [facility] [place] [facility] [address] [id number] [place] [address] Jan, [facility] [place] [facility] [address] [id number] [place] [address] Jan, [facility] [place] [facility] [address] [id number] [place] [address] Jan, [facility] [place] [facility] [address] [id number] [place] [address] Jan, [facility] [place] [facility] [address] [id number] [place] [address] Dec, [facility] [place] [facility] [address] [id number] [place] [address] Dec, [facility] [place] [facility] [address] [id number] [place] [address] Nov, [facility] [place] [facility] [address] [id number] [place] [address] Nov, [facility] [place] [facility] [address] [id number] [place] [address] Nov, [facility] [place] [facility] [address] [id number] [place] [address] Nov, [facility] [place] [facility] [address] [id number] [place] [address] Nov, [facility] [place] [facility] [address] [id number] [place] [address] Nov, [facility] [place] [facility] [address] [id number] [place] [address] Nov, [facility] [place] [facility] [address] [id number] [place] [address] October, [facility] [place] [facility] [address] [id number] [place] [address] October, [facility] [place] [facility] [address] [id number] [place] [address] Sep, [facility] [place] [facility] [address] [id number] [place] [address] Sep, [facility] [place] [facility] [address] [id number] [place] [address] Sep, [facility] [place] [facility] [address] [id number] [place] [address] Sep, [facility] [place] [facility] [address] [id number] [place] [address] 17 Sep, 2013 [facility] [place] [facility] [address] [facility] [id number] [place] [address] 16 Sep, 2013 [facility] [place] [facility] [address] [id number] [place] [address] Sep, [facility] [place] [facility] [address] [id number] [place] [address] Sep, [facility] [place] [facility] [address] [id number] [place] [address] 16 Sep, 2013 [facility] [place] [facility] [address] [facility] [id number] [facility] [place] [address] 14 Sep, 2013 [facility] [place] [facility] [address] [facility] [id number] [facility] [place] [address] 14 Sep, 2013 [facility] [place] [facility] [address] [facility] [id number] [place] [address] Sep, [facility] [place] [facility] [address] [facility] [id number] [place] [address] Sep, [facility] [place] [facility] [address] [facility] [id number] [facility] [place] [address] 08 Sep, 2013 [facility] [place] [facility] [address] [facility] [id number] [facility] [place] [address] Sep, [facility] [place] [facility] [address] [id number] [place] [address] 24 Aug, 2013 [facility] [place] [facility] [address] [id number] [facility] [place] [address] 24 Aug, 2013 [facility] [place] [facility] [address] [facility] [id number] [place] [address] 24 Aug, 2013 [facility] [place] [facility] [address] [id number] [facility] [place] [address] Aug, [facility] [place] [facility] [address] [id number] [place] [address] Aug, [facility] [place] [facility] [address] [id number] [place] [address] Aug, [facility] [place] [facility] [address] [facility] [id number] [place] [address] Aug, [facility] [place] [facility] [address] [facility] [id number] [place] [address] Aug, [facility] [place] [facility] [address] [facility] [id number] [place] [address] Aug, [facility] [place] [facility] [address] [id number] [facility] [place] [address] Aug, [facility] [place] [facility] [address] [id number] [place] [address] Jun, [facility] [place] [facility] [address] [id number] [place] [address] Jun, [facility] [place] [facility] [address] [id number] [place] [address] Jun, [facility] [place] [facility] [address] [id number] [place] [address] Jun, [facility] [place] [facility] [address] [id number] [place] [address] Jun, [facility] [place] [facility] [address] [facility] [id number] [place] [address] Jun, [facility] [place] [facility] [address] [id number] [place] [address] Jun, [facility] [place] [facility] [address] [id number] [place] [address] Jun, [facility] [place] [facility] [address] [id number] [place] [address] Jun, [facility] [place] [facility] [address] [id number] [place] [address] Jun, [facility] [place] [facility] [address] [id number] [place] [address] Jun, [facility] [place] [facility] [address] [id number] [place] [address] Jun, [facility] [place] [facility] [address] [id number] [place] [address] Apr, [facility] [place] [facility] [address] [id number] [place] [address] Apr, [facility] [place] [facility] [address] [id number] [place] [address] Jan, [facility] [place] [facility] [address] [id number] [place] [address] Jan, [facility] [place] [facility] [address] [id number] [place] [address] Jan, [facility] [place] [facility] [address] [id number] [place] [address] Jan, [facility] [place] [address] [id number] [place] [address] Jan, [facility] [place] [address] [id number] [place] [address] Jan, [facility] [place] [id number] [place] [address] Jan, [facility] [address] [place] [id number] Jan, [facility] [place] [address] [id number] [place] [address] Dec, [facility] [place] [address] [id number] [place] [address] Dec, [facility] [place] [id number] [place] [address] Dec, [facility] [place] [address] [id number] [place] [address] Dec, [facility] [place] [id number] [place] [address] Dec, [facility] [place] [address] [id number] [place] [address] Dec, [facility] [place] [address] [id number] [place] [address] Dec, [facility] [place] [address] [id number] [place] [address] Nov, [facility] [place] [address] [id number] [place] [address] Nov, IMMUNIZATIONS No Known Immunizations SOCIAL HISTORY Never Assessed REASON FOR VISIT PLAN OF CARE VITAL SIGNS Height 62 in 2013-12-01 Weight 281 lbs 2013-12-01 Temperature 98.6 degrees Fahrenheit 2013-12-01 Heart Rate 92 bpm 2013-12-01 Respiratory Rate 22 2013-12-01 Blood pressure systolic 126 mmHg 2013-12-01 Blood pressure diastolic 84 mmHg 2013-12-01 MEDICATIONS Unknown Medications RESULTS No Results PROCEDURES No Known procedures INSTRUCTIONS MEDICATIONS ADMINISTERED No Known Medications
--- OUTSIDE RECORDS SUMMARY | 2019-07-25 20:23 | XMS REPORT ---
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 Active Problem Suicide and self-inflicted p oisoning by unspecified drug or medicinal substance E950.5 Active Problem Other dyspnea and respiratory abnormalities 786.09 Active 803311015 Problem Dysuria 788.1 Active 14582409 Problem Congestive heart failure, unspecified 428.0 Active 65929382 Problem Other screening breast examination V76.19 Active 01987977 Problem Unspecified hypotension 458.9 Active 13756832 Problem Other specified disorders of bladder 596.89 Active 92716276 Problem Encounter for long-term (current) use of other medications V58.69 Active 553896628 Problem Counseling on substance use and abuse V65.42 Active 298806081 Problem Unspecified myalgia and myositis 729.1 Active 390182257 Problem Pain in soft tissues of limb 729.5 A ctive 14153569 Problem Urinary tract infection, site not specified 599.0 Active 39952963 Problem Pain in joint, lower leg 719.46 Activ e 099795391 Problem Chronic airway obstruction, not elsewhere classified 496 Active 09251609 Problem Neurogenic bladder, NOS 596.54 Active 949772286 Problem Acute sinusitis, unspecified 461.9 A ctive 80033978 Problem Personal history of pulmonary embolism V12.55 Active 174116663 Problem Acute bronchitis 466.0 Active 105 55254 Problem Unspecified hearing loss 389.9 Activ e 42965050 Problem Unspecified otalgia 388.70 Active 78078083 Problem Unspecified hereditary and idiopathic peripheral neuropath y 356.9 Active 397885187 Problem Other and unspecified hyperlipidemia 272.4 Active 86574589 Problem Altered mental status 780.97 Active 931909825 Problem Diabetes mellitus without me ntion of complication, type II or unspecified type, not stated as uncontrolled 250.00 Active 584908301 Problem Shortness of breath 786.05 Active 844135915 Problem Other malaise and fatigue 780.79 Acti ve 128932976 Problem Other chronic pain 338.29 Active 8 5653487 Problem Nondependent tobacco use disorder 305.1 Active 170319533 Problem Amphetamine and other psychostimulant de pendence, 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 [id number] [address] [place] [phone] Sep, [facility] [address] [facility] [id number] [address] [place] [phone] Sep, [facility] [address] [facility] [id number] [address] [place] [phone] Aug, [facility] [address] [facility] [id number] [address] [place] [phone] Aug, [facility] [address] [place] [id number] [address] [place] [id number] Aug, [facility] [address] [facility] [id number] [address] [place] [phone] Aug, [facility] [address] [facility] [id number] [address] [place] [phone] Aug, [facility] [address] [facility] [id number] [address] [place] [phone] Aug, [facility] [address] [facility] [id number] [address] [place] [phone] Jul, [facility] [address] [facility] [id number] [address] [place] [phone] Jul, [facility] [address] [place] [id number] [address] [place] [phone] Jul, [facility] [address] [id number] [address] [place] [address], [place] [address] Jul, [facility] [address] [id number] [address] [place] [address], [place] [address] Jul, 2014 [facility] [address] [id number] [address] [place] [address], [place] [address] Jul, 2014 [facility] [address] [id number] [address] [place] [address], [place] [address] Jul, [facility] [address] [id number] [address] [place] [address], [place] [address] Jul, [facility] [address] [id number] [address] [place] [address], [place] [address] Jul, [facility] [address] [id number] [address] [place] [address], [place] [address] Jun, [facility] [address] [id number] [address] [place] [address], [place] [address] Jun, [facility] [address] [id number] [address] [place] [address], [place] [address] Jun, [facility] [address] [id number] [address] [place] [address], [place] [address] Jun, [facility] [address] [id number] [address] [place] [address], [place] [address] Jun, [facility] [address] [id number] [address] [place] [phone] Jun, [facility] [address] [id number] [address] [place] [phone] Jun, [facility] [address] [id number] [address] [place] [phone] Jun, [facility] [address] [id number] [address] [place] [phone] Jun, [facility] [address] [id number] [address] [place] [address], [place] [address] Jun, [facility] [address] [id number] [address] [place] [address], [place] [address] May, [facility] [address] [id number] [address] [place] [address], [place] [address] May, [facility] [address] [id number] [address] [place] [address], [place] [address] May, [facility] [address] [id number] [address] [place] [address], [place] [address] May, [facility] [address] [id number] [address] [place] [address], [place] [address] May, [facility] [address] [id number] [address] [place] [address], [place] [address] May, [facility] [address] [id number] [address] [place] [address], [place] [address] May, [facility] [address] [id number] [address] [place] [address], [place] [address] May, [facility] [address] [id number] [address] [place] [address], [place] [address] May, [facility] [address] [id number] [address] [place] [address], [place] [address] 15 May, 2014 [facility] [address] [id number] [address] [place] [address], [place] [address] 15 May, 2014 [facility] [address] [id number] [address] [place] [address], [place] [address] Apr, [facility] [address] [id number] [address] [place] [address], [place] [address] Apr, [facility] [address] [id number] [address] [place] [address], [place] [address] 17 Apr, 2014 [facility] [address] [id number] [address] [place] [address], [place] [address] Apr, [facility] [address] [id number] [address] [place] [address], [place] [address] Mar, [facility] [address] [id number] [address] [place] [address], [place] [address] Mar, [facility] [address] [id number] [address] [place] [address], [place] [address] Mar, [facility] [address] [id number] [address] [place] [address], [place] [address] Mar, [facility] [address] [id number] [address] [place] [address], [place] [address] Feb, [facility] [address] [id number] [address] [place] [address], [place] [address] Feb, [facility] [address] [id number] [address] [place] [address], [place] [address] Feb, [facility] [address] [id number] [address] [place] [address], [place] [address] Feb, [facility] [address] [id number] [address] [place] [address], [place] [address] 16 Feb, 2014 [facility] [address] [id number] [address] [place] [address], [place] [address] 16 Feb, 2014 [facility] [address] [id number] [address] [place] [address], [place] [address] Jan, [facility] [address] [id number] [address] [place] [address], [place] [address] Jan, [facility] [address] [id number] [address] [place] [address], [place] [address] Jan, [facility] [address] [id number] [address] [place] [address], [place] [address] Jan, [facility] [address] [id number] [address] [place] [address], [place] [address] Jan, [facility] [address] [id number] [address] [place] [address], [place] [address] Jan, [facility] [address] [id number] [address] [place] [address], [place] [address] Dec, [facility] [address] [id number] [address] [place] [address], [place] [address] Dec, [facility] [address] [id number] [address] [place] [address], [place] [address] Nov, [facility] [address] [id number] [address] [place] [address], [place] [address] Nov, [facility] [address] [id number] [address] [place] [address], [place] [address] Nov, [facility] [address] [id number] [address] [place] [address], [place] [address] Nov, [facility] [address] [id number] [address] [place] [address], [place] [address] Nov, [facility] [address] [id number] [address] [place] [address], [place] [address] Nov, [facility] [address] [id number] [address] [place] [address], [place] [address] Nov, [facility] [address] [id number] [address] [place] [address], [place] [address] October, [facility] [address] [id number] [address] [place] [address], [place] [address] October, [facility] [address] [id number] [address] [place] [address], [place] [address] Sep, [facility] [address] [id number] [address] [place] [address], [place] [address] Sep, [facility] [address] [id number] [address] [place] [address], [place] [address] Sep, [facility] [address] [id number] [address] [place] [address], [place] [address] Sep, [facility] [address] [id number] [facility] [place] [address] 17 Sep, 2013 [facility] [address] [id number] [address] [place] [address], [place] [address] Sep, [facility] [address] [id number] [address] [place] [address], [place] [address] Sep, [facility] [address] [id number] [address] [place] [address], [place] [address] Sep, [facility] [address] [id number] [address] [place] [address], [place] [address] Sep, [facility] [address] [id number] [address] [place] [address], [place] [address] Sep, [facility] [address] [id number] [address] [place] [address], [place] [address] Sep, [facility] [address] [id number] [address] [place] [address], [place] [address] Sep, [facility] [address] [id number] [address] [place] [address], [place] [address] Sep, [facility] [address] [id number] [address] [place] [address], [place] [address] Sep, [facility] [address] [id number] [address] [place] [address], [place] [address] Sep, [facility] [address] [id number] [address] [place] [address], [place] [address] Aug, [facility] [address] [id number] [address] [place] [address], [place] [address] Aug, [facility] [address] [id number] [address] [place] [address], [place] [address] Aug, [facility] [address] [id number] [address] [place] [address], [place] [address] Aug, [facility] [address] [id number] [address] [place] [address], [place] [address] Aug, [facility] [address] [id number] [address] [place] [address], [place] [address] Aug, [facility] [address] [id number] [address] [place] [address], [place] [address] Aug, [facility] [address] [id number] [address] [place] [address], [place] [address] Aug, [facility] [address] [id number] [address] [place] [address], [place] [address] Aug, [facility] [address] [id number] [address] [place] [address], [place] [address] Aug, [facility] [address] [id number] [address] [place] [address], [place] [address] Jun, [facility] [address] [id number] [address] [place] [address], [place] [address] Jun, [facility] [address] [id number] [address] [place] [address], [place] [address] Jun, [facility] [address] [id number] [address] [place] [address], [place] [address] Jun, [facility] [address] [id number] [address] [place] [address], [place] [address] Jun, [facility] [address] [id number] [address] [place] [address], [place] [address] Jun, [facility] [address] [id number] [address] [place] [address], [place] [address] Jun, [facility] [address] [id number] [address] [place] [address], [place] [address] Jun, [facility] [address] [id number] [address] [place] [address], [place] [address] Jun, [facility] [address] [id number] [address] [place] [address], [place] [address] Jun, [facility] [address] [id number] [facility] [place] [address] Jun, [facility] [address] [id number] [facility] [place] [address] Jun, [facility] [address] [id number] [facility] [place] [address] Apr, [facility] [address] [id number] [address] [place] [address], [place] [address] Apr, [facility] [address] [id number] [address] [place] [address], [place] [address] Jan, [facility] [address] [id number] [address] [place] [address], [place] [address] Jan, [facility] [address] [id number] [address] [place] [address], [place] [address] Jan, [facility] [address] [id number] [address] [place] [address], [place] [address] Jan, [facility] [address] [id number] [address] [place] [address], [place] [address] Jan, [facility] [address] [id number] [address] [place] [address], [place] [address] Jan, [facility] [address] [id number] [address] [place] [address], [place] [address] Jan, [facility] [address] [place] [id number] Jan, [facility] [address] [id number] [address] [place] [address], [place] [address] Dec, [facility] [address] [id number] [address] [place] [address], [place] [address] Dec, [facility] [address] [id number] [address] [place] [address], [place] [address] Dec, [facility] [address] [id number] [address] [place] [address], [place] [address] Dec, [facility] [address] [facility] [id number] [address] [place] [address] Dec, [facility] [address] [facility] [id number] [address] [place] [address] Dec, [facility] [address] [facility] [id number] [address] [place] [address] Dec, [facility] [address] [facility] [id number] [address] [place] [address] Nov, [facility] [address] [facility] [id number] [address] [place] [address] Nov, IMMUNIZATIONS No Known Immunizations SOCIAL HISTORY Never Assessed REASON FOR VISIT PLAN OF CARE VITAL SIGNS MEDICATIONS Unknown Medications RESULTS No Results PROCEDURES No Known procedures INSTRUCTIONS MEDICATIONS ADMINISTERED No Known Medications
--- OUTSIDE RECORDS SUMMARY | 2019-07-25 20:23 | XMS REPORT ---
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 Active Problem Suicide and self-inflicted p oisoning by unspecified drug or medicinal substance E950.5 Active Problem Other dyspnea and respiratory abnormalities 786.09 Active 590937432 Problem Dysuria 788.1 Active 00125533 Problem Congestive heart failure, unspecified 428.0 Active 17865907 Problem Other screening breast examination V76.19 Active 37518061 Problem Unspecified hypotension 458.9 Active 49875235 Problem Other specified disorders of bladder 596.89 Active 20055434 Problem Encounter for long-term (current) use of other medications V58.69 Active 668024838 Problem Counseling on substance use and abuse V65.42 Active 906321245 Problem Unspecified myalgia and myositis 729.1 Active 941719469 Problem Pain in soft tissues of limb 729.5 A ctive 27898925 Problem Urinary tract infection, site not specified 599.0 Active 75788275 Problem Pain in joint, lower leg 719.46 Activ e 873389014 Problem Chronic airway obstruction, not elsewhere classified 496 Active 57270500 Problem Neurogenic bladder, NOS 596.54 Active 976355597 Problem Acute sinusitis, unspecified 461.9 A ctive 66095040 Problem Personal history of pulmonary embolism V12.55 Active 259774232 Problem Acute bronchitis 466.0 Active 105 66886 Problem Unspecified hearing loss 389.9 Activ e 69342789 Problem Unspecified otalgia 388.70 Active 19534040 Problem Unspecified hereditary and idiopathic peripheral neuropath y 356.9 Active 254395478 Problem Other and unspecified hyperlipidemia 272.4 Active 81714615 Problem Altered mental status 780.97 Active 257374368 Problem Diabetes mellitus without me ntion of complication, type II or unspecified type, not stated as uncontrolled 250.00 Active 163318821 Problem Shortness of breath 786.05 Active 694526364 Problem Other malaise and fatigue 780.79 Acti ve 321637389 Problem Other chronic pain 338.29 Active 8 3277481 Problem Nondependent tobacco use disorder 305.1 Active 951290123 Problem Amphetamine and other psychostimulant de pendence, 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 Active Problem Obesity, unspecified 278.00 Active 627242455 ALLERGIES No Information ENCOUNTERS Encounter Location Date Diagnosis [facility] [address] [facility] [id number] [address] [place] [address] Sep, [facility] [address] [facility] [id number] [address] [place] [address] Sep, [facility] [address] [facility] [id number] [address] [place] [phone] Aug, [facility] [address] [facility] [id number] [address] [place] [address] Aug, [facility] [address] [place] [id number] [address] [place] [address] Aug, [facility] [address] [facility] [id number] [address] [place] [address] Aug, [facility] [address] [facility] [id number] [address] [place] [address] Aug, [facility] [address] [facility] [id number] [address] [place] [address] Aug, [facility] [address] [facility] [id number] [address] [place] [address] Jul, [facility] [address] [facility] [id number] [address] [place] [address] Jul, [facility] [address] [place] [id number] [address] [place] [address] Jul, [facility] [address] [id number] [address] [place] [address], [place] [address] Jul, [facility] [address] [id number] [address] [place] [address], [place] [address] Jul, 2014 [facility] [address] [id number] [address] [place] [address], [place] [address] Jul, 2014 [facility] [address] [id number] [address] [place] [address], [place] [address] Jul, [facility] [address] [id number] [address] [place] [address], [place] [address] Jul, [facility] [address] [id number] [address] [place] [address], [place] [address] Jul, [facility] [address] [id number] [address] [place] [address], [place] [address] Jun, [facility] [address] [id number] [address] [place] [address], [place] [address] Jun, [facility] [address] [id number] [address] [place] [address], [place] [address] Jun, [facility] [address] [id number] [address] [place] [address], [place] [address] Jun, [facility] [address] [id number] [address] [place] [address], [place] [address] Jun, [facility] [address] [id number] [address] [place] [address] Jun, [facility] [address] [id number] [address] [place] [address] Jun, [facility] [address] [id number] [address] [place] [address] Jun, [facility] [address] [id number] [address] [place] [address] Jun, [facility] [address] [id number] [address] [place] [address], [place] [address] Jun, [facility] [address] [id number] [address] [place] [address], [place] [address] May, [facility] [address] [id number] [address] [place] [address], [place] [address] May, [facility] [address] [id number] [address] [place] [address], [place] [address] May, [facility] [address] [id number] [address] [place] [address], [place] [address] May, [facility] [address] [id number] [address] [place] [address], [place] [address] May, [facility] [address] [id number] [address] [place] [address], [place] [address] May, [facility] [address] [id number] [address] [place] [address], [place] [address] May, [facility] [address] [id number] [address] [place] [address], [place] [address] May, [facility] [address] [id number] [address] [place] [address], [place] [address] May, [facility] [address] [id number] [address] [place] [address], [place] [address] 15 May, 2014 [facility] [address] [id number] [address] [place] [address], [place] [address] 15 May, 2014 [facility] [address] [id number] [address] [place] [address], [place] [address] Apr, [facility] [address] [id number] [address] [place] [address], [place] [address] Apr, [facility] [address] [id number] [address] [place] [address], [place] [address] 17 Apr, 2014 [facility] [address] [id number] [address] [place] [address], [place] [address] Apr, [facility] [address] [id number] [address] [place] [address], [place] [address] Mar, [facility] [address] [id number] [address] [place] [address], [place] [address] Mar, [facility] [address] [id number] [address] [place] [address], [place] [address] Mar, [facility] [address] [id number] [address] [place] [address], [place] [address] Mar, [facility] [address] [id number] [address] [place] [address], [place] [address] Feb, [facility] [address] [id number] [address] [place] [address], [place] [address] Feb, [facility] [address] [id number] [address] [place] [address], [place] [address] Feb, [facility] [address] [id number] [address] [place] [address], [place] [address] Feb, [facility] [address] [id number] [address] [place] [address], [place] [address] 16 Feb, 2014 [facility] [address] [id number] [address] [place] [address], [place] [address] 16 Feb, 2014 [facility] [address] [id number] [address] [place] [address], [place] [address] Jan, [facility] [address] [id number] [address] [place] [address], [place] [address] Jan, [facility] [address] [id number] [address] [place] [address], [place] [address] Jan, [facility] [address] [id number] [address] [place] [address], [place] [address] Jan, [facility] [address] [id number] [address] [place] [address], [place] [address] Jan, [facility] [address] [id number] [address] [place] [address], [place] [address] Jan, [facility] [address] [id number] [address] [place] [address], [place] [address] Dec, [facility] [address] [id number] [address] [place] [address], [place] [address] Dec, [facility] [address] [id number] [address] [place] [address], [place] [address] Nov, [facility] [address] [id number] [address] [place] [address], [place] [address] Nov, [facility] [address] [id number] [address] [place] [address], [place] [address] Nov, [facility] [address] [id number] [address] [place] [address], [place] [address] Nov, [facility] [address] [id number] [address] [place] [address], [place] [address] Nov, [facility] [address] [id number] [address] [place] [address], [place] [address] Nov, [facility] [address] [id number] [address] [place] [address], [place] [address] Nov, [facility] [address] [id number] [address] [place] [address], [place] [address] October, [facility] [address] [id number] [address] [place] [address], [place] [address] October, [facility] [address] [id number] [address] [place] [address], [place] [address] Sep, [facility] [address] [id number] [address] [place] [address], [place] [address] Sep, [facility] [address] [id number] [address] [place] [address], [place] [address] Sep, [facility] [address] [id number] [address] [place] [address], [place] [address] Sep, [facility] [address] [id number] [facility] [place] [address] 17 Sep, 2013 [facility] [address] [id number] [address] [place] [address], [place] [address] Sep, [facility] [address] [id number] [address] [place] [address], [place] [address] Sep, [facility] [address] [id number] [address] [place] [address], [place] [address] Sep, [facility] [address] [id number] [address] [place] [address], [place] [address] Sep, [facility] [address] [id number] [address] [place] [address], [place] [address] Sep, [facility] [address] [id number] [address] [place] [address], [place] [address] Sep, [facility] [address] [id number] [address] [place] [address], [place] [address] Sep, [facility] [address] [id number] [address] [place] [address], [place] [address] Sep, [facility] [address] [id number] [address] [place] [address], [place] [address] Sep, [facility] [address] [id number] [address] [place] [address], [place] [address] Sep, [facility] [address] [id number] [address] [place] [address], [place] [address] Aug, [facility] [address] [id number] [address] [place] [address], [place] [address] Aug, [facility] [address] [id number] [address] [place] [address], [place] [address] Aug, [facility] [address] [id number] [address] [place] [address], [place] [address] Aug, [facility] [address] [id number] [address] [place] [address], [place] [address] Aug, [facility] [address] [id number] [address] [place] [address], [place] [address] Aug, [facility] [address] [id number] [address] [place] [address], [place] [address] Aug, [facility] [address] [id number] [address] [place] [address], [place] [address] Aug, [facility] [address] [id number] [address] [place] [address], [place] [address] Aug, [facility] [address] [id number] [address] [place] [address], [place] [address] Aug, [facility] [address] [id number] [address] [place] [address], [place] [address] Jun, [facility] [address] [id number] [address] [place] [address], [place] [address] Jun, [facility] [address] [id number] [address] [place] [address], [place] [address] Jun, [facility] [address] [id number] [address] [place] [address], [place] [address] Jun, [facility] [address] [id number] [address] [place] [address], [place] [address] Jun, [facility] [address] [id number] [address] [place] [address], [place] [address] Jun, [facility] [address] [id number] [address] [place] [address], [place] [address] Jun, [facility] [address] [id number] [address] [place] [address], [place] [address] Jun, [facility] [address] [id number] [address] [place] [address], [place] [address] Jun, [facility] [address] [id number] [address] [place] [address], [place] [address] Jun, [facility] [address] [id number] [facility] [place] [address] Jun, [facility] [address] [id number] [facility] [place] [address] Jun, [facility] [address] [id number] [facility] [place] [address] Apr, [facility] [address] [id number] [address] [place] [address], [place] [address] Apr, [facility] [address] [id number] [address] [place] [address], [place] [address] Jan, [facility] [address] [id number] [address] [place] [address], [place] [address] Jan, [facility] [address] [id number] [address] [place] [address], [place] [address] Jan, [facility] [address] [id number] [address] [place] [address], [place] [address] Jan, [facility] [address] [id number] [address] [place] [address], [place] [address] Jan, [facility] [address] [id number] [address] [place] [address], [place] [address] Jan, [facility] [address] [id number] [address] [place] [address], [place] [address] Jan, [facility] [address] [place] [id number] Jan, [facility] [address] [id number] [address] [place] [address], [place] [address] Dec, [facility] [address] [id number] [address] [place] [address], [place] [address] Dec, [facility] [address] [id number] [address] [place] [address], [place] [address] Dec, [facility] [address] [id number] [address] [place] [address], [place] [address] Dec, [facility] [address] [facility] [id number] [address] [place] [address] Dec, [facility] [address] [facility] [id number] [address] [place] [address] Dec, [facility] [address] [facility] [id number] [address] [place] [address] Dec, [facility] [address] [facility] [id number] [address] [place] [address] Nov, [facility] [address] [facility] [id number] [address] [place] [address] Nov, IMMUNIZATIONS No Known Immunizations SOCIAL HISTORY Never Assessed REASON FOR VISIT PLAN OF CARE VITAL SIGNS Height 62 in 2014-01-09 Weight 282.99 lbs 2014-01-09 Temperature 97.8 degrees Fahrenheit 2014-01-09 Heart Rate 90 bpm 2014-01-09 Respiratory Rate 16 2014-01-09 Blood pressure systolic 122 mmHg 2014-01-09 Blood pressure diastolic 70 mmHg 2014-01-09 MEDICATIONS Unknown Medications RESULTS No Results PROCEDURES Procedure Date Ordered Result Body Site ASSAY THYROID STIM HORMONE Jan 09, 2014 GLYCATED HEMOGLOBIN TEST Jan 09, 2014 COMPREHEN METABOLIC PANEL Jan 09, 2014 VENIPUNCT, ROUTINE* Jan 09, 2014 INSTRUCTIONS MEDICATIONS ADMINISTERED No Known Medications
--- OUTSIDE RECORDS SUMMARY | 2019-07-25 20:23 | XMS REPORT ---
Author Author Ayden Payne Doctor Organization [facility] Address Unknown Phone Unavailable Care Team Providers Care Commercial Collector Name Role Phone Migration, Doctor Unavailable Unavailable PROBLEMS Type Condition ICD9-CM Code RHV35-SP Code Onset Dates Condition S tatus SNOMED Code Problem Personal history of fall V15.88 Activ e 026291284 Problem Routine general medical examination at 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 Active Problem Suicide and self-inflicted p oisoning by unspecified drug or medicinal substance E950.5 Active Problem Other dyspnea and respiratory abnormalities 786.09 Active 746935280 Problem Dysuria 788.1 Active 53200598 Problem Congestive heart failure, unspecified 428.0 Active 20782629 Problem Other screening breast examination V76.19 Active 95120346 Problem Unspecified hypotension 458.9 Active 63957533 Problem Other specified disorders of bladder 596.89 Active 15025642 Problem Encounter for long-term (current) use of other medications V58.69 Active 523490535 Problem Counseling on substance use and abuse V65.42 Active 800394178 Problem Unspecified myalgia and myositis 729.1 Active 561098751 Problem Pain in soft tissues of limb 729.5 A ctive 48027990 Problem Urinary tract infection, site not specified 599.0 Active 54005582 Problem Pain in joint, lower leg 719.46 Activ e 260826292 Problem Chronic airway obstruction, not elsewhere classified 496 Active 79912217 Problem Neurogenic bladder, NOS 596.54 Active 601769352 Problem Acute sinusitis, unspecified 461.9 A ctive 55503498 Problem Personal history of pulmonary embolism V12.55 Active 562549144 Problem Acute bronchitis 466.0 Active 105 28093 Problem Unspecified hearing loss 389.9 Activ e 67988415 Problem Unspecified otalgia 388.70 Active 74481189 Problem Unspecified hereditary and idiopathic peripheral neuropath y 356.9 Active 767165231 Problem Other and unspecified hyperlipidemia 272.4 Active 12720711 Problem Altered mental status 780.97 Active 297172384 Problem Diabetes mellitus without me ntion of complication, type II or unspecified type, not stated as uncontrolled 250.00 Active 843510196 Problem Shortness of breath 786.05 Active 136552143 Problem Other malaise and fatigue 780.79 Acti ve 032386785 Problem Other chronic pain 338.29 Active 8 0278603 Problem Nondependent tobacco use disorder 305.1 Active 784158405 Problem Amphetamine and other psychostimulant de pendence, 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 [id number] [address] [place] [phone] Sep, [facility] [address] [facility] [id number] [address] [place] [phone] Sep, [facility] [address] [facility] [id number] [address] [place] [phone] Aug, [facility] [address] [facility] [id number] [address] [place] [phone] Aug, [facility] [address] [place] [id number] [address] [place] [phone] Aug, [facility] [address] [facility] [id number] [address] [place] [phone] Aug, [facility] [address] [facility] [id number] [address] [place] [phone] Aug, [facility] [address] [facility] [id number] [address] [place] [phone] Aug, [facility] [address] [facility] [id number] [address] [place] [phone] Jul, [facility] [address] [facility] [id number] [address] [place] [phone] Jul, [facility] [address] [place] [id number] [address] [place] [phone] Jul, [facility] [address] [id number] [address] [place] [address], [place] [address] Jul, [facility] [address] [id number] [address] [place] [address], [place] [address] Jul, 2014 [facility] [address] [id number] [address] [place] [address], [place] [address] Jul, 2014 [facility] [address] [id number] [address] [place] [address], [place] [address] Jul, [facility] [address] [id number] [address] [place] [address], [place] [address] Jul, [facility] [address] [id number] [address] [place] [address], [place] [address] Jul, [facility] [address] [id number] [address] [place] [address], [place] [address] Jun, [facility] [address] [id number] [address] [place] [address], [place] [address] Jun, [facility] [address] [id number] [address] [place] [address], [place] [address] Jun, [facility] [address] [id number] [address] [place] [address], [place] [address] Jun, [facility] [address] [id number] [address] [place] [address], [place] [address] Jun, [facility] [address] [id number] [address] [place] [phone] Jun, [facility] [address] [id number] [address] [place] [phone] Jun, [facility] [address] [id number] [address] [place] [phone] Jun, [facility] [address] [id number] [address] [place] [phone] Jun, [facility] [address] [id number] [address] [place] [address], [place] [address] Jun, [facility] [address] [id number] [address] [place] [address], [place] [address] May, [facility] [address] [id number] [address] [place] [address], [place] [address] May, [facility] [address] [id number] [address] [place] [address], [place] [address] May, [facility] [address] [id number] [address] [place] [address], [place] [address] May, [facility] [address] [id number] [address] [place] [address], [place] [address] May, [facility] [address] [id number] [address] [place] [address], [place] [address] May, [facility] [address] [id number] [address] [place] [address], [place] [address] May, [facility] [address] [id number] [address] [place] [address], [place] [address] May, [facility] [address] [id number] [address] [place] [address], [place] [address] May, [facility] [address] [id number] [address] [place] [address], [place] [address] 15 May, 2014 [facility] [address] [id number] [address] [place] [address], [place] [address] 15 May, 2014 [facility] [address] [id number] [address] [place] [address], [place] [address] Apr, [facility] [address] [id number] [address] [place] [address], [place] [address] Apr, [facility] [address] [id number] [address] [place] [address], [place] [address] 17 Apr, 2014 [facility] [address] [id number] [address] [place] [address], [place] [address] Apr, [facility] [address] [id number] [address] [place] [address], [place] [address] Mar, [facility] [address] [id number] [address] [place] [address], [place] [address] Mar, [facility] [address] [id number] [address] [place] [address], [place] [address] Mar, [facility] [address] [id number] [address] [place] [address], [place] [address] Mar, [facility] [address] [id number] [address] [place] [address], [place] [address] Feb, [facility] [address] [id number] [address] [place] [address], [place] [address] Feb, [facility] [address] [id number] [address] [place] [address], [place] [address] Feb, [facility] [address] [id number] [address] [place] [address], [place] [address] Feb, [facility] [address] [id number] [address] [place] [address], [place] [address] 16 Feb, 2014 [facility] [address] [id number] [address] [place] [address], [place] [address] 16 Feb, 2014 [facility] [address] [id number] [address] [place] [address], [place] [address] Jan, [facility] [address] [id number] [address] [place] [address], [place] [address] Jan, [facility] [address] [id number] [address] [place] [address], [place] [address] Jan, [facility] [address] [id number] [address] [place] [address], [place] [address] Jan, [facility] [address] [id number] [address] [place] [address], [place] [address] Jan, [facility] [address] [id number] [address] [place] [address], [place] [address] Jan, [facility] [address] [id number] [address] [place] [address], [place] [address] Dec, [facility] [address] [id number] [address] [place] [address], [place] [address] Dec, [facility] [address] [id number] [address] [place] [address], [place] [address] Nov, [facility] [address] [id number] [address] [place] [address], [place] [address] Nov, [facility] [address] [id number] [address] [place] [address], [place] [address] Nov, [facility] [address] [id number] [address] [place] [address], [place] [address] Nov, [facility] [address] [id number] [address] [place] [address], [place] [address] Nov, [facility] [address] [id number] [address] [place] [address], [place] [address] Nov, [facility] [address] [id number] [address] [place] [address], [place] [address] Nov, [facility] [address] [id number] [address] [place] [address], [place] [address] October, [facility] [address] [id number] [address] [place] [address], [place] [address] October, [facility] [address] [id number] [address] [place] [address], [place] [address] Sep, [facility] [address] [id number] [address] [place] [address], [place] [address] Sep, [facility] [address] [id number] [address] [place] [address], [place] [address] Sep, [facility] [address] [id number] [address] [place] [address], [place] [address] Sep, [facility] [address] [id number] [facility] [place] [address] 17 Sep, 2013 [facility] [address] [id number] [address] [place] [address], [place] [address] Sep, [facility] [address] [id number] [address] [place] [address], [place] [address] Sep, [facility] [address] [id number] [address] [place] [address], [place] [address] Sep, [facility] [address] [id number] [address] [place] [address], [place] [address] Sep, [facility] [address] [id number] [address] [place] [address], [place] [address] Sep, [facility] [address] [id number] [address] [place] [address], [place] [address] Sep, [facility] [address] [id number] [address] [place] [address], [place] [address] Sep, [facility] [address] [id number] [address] [place] [address], [place] [address] Sep, [facility] [address] [id number] [address] [place] [address], [place] [address] Sep, [facility] [address] [id number] [address] [place] [address], [place] [address] Sep, [facility] [address] [id number] [address] [place] [address], [place] [address] Aug, [facility] [address] [id number] [address] [place] [address], [place] [address] Aug, [facility] [address] [id number] [address] [place] [address], [place] [address] Aug, [facility] [address] [id number] [address] [place] [address], [place] [address] Aug, [facility] [address] [id number] [address] [place] [address], [place] [address] Aug, [facility] [address] [id number] [address] [place] [address], [place] [address] Aug, [facility] [address] [id number] [address] [place] [address], [place] [address] Aug, [facility] [address] [id number] [address] [place] [address], [place] [address] Aug, [facility] [address] [id number] [address] [place] [address], [place] [address] Aug, [facility] [address] [id number] [address] [place] [address], [place] [address] Aug, [facility] [address] [id number] [address] [place] [address], [place] [address] Jun, [facility] [address] [id number] [address] [place] [address], [place] [address] Jun, [facility] [address] [id number] [address] [place] [address], [place] [address] Jun, [facility] [address] [id number] [address] [place] [address], [place] [address] Jun, [facility] [address] [id number] [address] [place] [address], [place] [address] Jun, [facility] [address] [id number] [address] [place] [address], [place] [address] Jun, [facility] [address] [id number] [address] [place] [address], [place] [address] Jun, [facility] [address] [id number] [address] [place] [address], [place] [address] Jun, [facility] [address] [id number] [address] [place] [address], [place] [address] Jun, [facility] [address] [id number] [address] [place] [address], [place] [address] Jun, [facility] [address] [id number] [facility] [place] [address] Jun, [facility] [address] [id number] [facility] [place] [address] Jun, [facility] [address] [id number] [facility] [place] [address] Apr, [facility] [address] [id number] [address] [place] [address], [place] [address] Apr, [facility] [address] [id number] [address] [place] [address], [place] [address] Jan, [facility] [address] [id number] [address] [place] [address], [place] [address] Jan, [facility] [address] [id number] [address] [place] [address], [place] [address] Jan, [facility] [address] [id number] [address] [place] [address], [place] [address] Jan, [facility] [address] [id number] [address] [place] [address], [place] [address] Jan, [facility] [address] [id number] [address] [place] [address], [place] [address] Jan, [facility] [address] [id number] [address] [place] [address], [place] [address] Jan, [facility] [address] [place] [id number] Jan, [facility] [address] [id number] [address] [place] [address], [place] [address] Dec, [facility] [address] [id number] [address] [place] [address], [place] [address] Dec, [facility] [address] [id number] [address] [place] [address], [place] [address] Dec, [facility] [address] [id number] [address] [place] [address], [place] [address] Dec, [facility] [address] [facility] [id number] [address] [place] [id number] Dec, [facility] [address] [facility] [id number] [address] [place] [id number] Dec, [facility] [address] [facility] [id number] [address] [place] [id number] Dec, [facility] [address] [facility] [id number] [address] [place] [id number] Nov, [facility] [address] [facility] [id number] [address] [place] [id number] Nov, IMMUNIZATIONS No Known Immunizations SOCIAL HISTORY Never Assessed REASON FOR VISIT PLAN OF CARE VITAL SIGNS Height 62 in 2014-07-14 Weight 268.41 lbs 2014-07-14 Temperature 97.1 degrees Fahrenheit 2014-07-14 Heart Rate 78 bpm 2014-07-14 Respiratory Rate 20 2014-07-14 Blood pressure systolic 132 mmHg 2014-07-14 Blood pressure diastolic 74 mmHg 2014-07-14 MEDICATIONS Unknown Medications RESULTS No Results PROCEDURES Procedure Date Ordered Result Body Site TTE W/DOPPLER, COMPLETE Jul 14, 2014 COMPLETE CBC W/AUTO DIFF WBC Jul 14, 2014 PROTHROMBIN TIME Jul 14, 2014 LIPID PANEL Jul 14, 2014 COMPREHEN METABOLIC PANEL Jul 14, 2014 VENIPUNCT, ROUTINE* Jul 14, 2014 INSTRUCTIONS MEDICATIONS ADMINISTERED No Known Medications
--- OUTSIDE RECORDS SUMMARY | 2019-07-25 20:23 | XMS REPORT ---
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 Active Problem Suicide and self-inflicted p oisoning by unspecified drug or medicinal substance E950.5 Active Problem Other dyspnea and respiratory abnormalities 786.09 Active 988059506 Problem Dysuria 788.1 Active 30407958 Problem Congestive heart failure, unspecified 428.0 Active 48388902 Problem Other screening breast examination V76.19 Active 12160984 Problem Unspecified hypotension 458.9 Active 37290437 Problem Other specified disorders of bladder 596.89 Active 65395471 Problem Encounter for long-term (current) use of other medications V58.69 Active 415346261 Problem Counseling on substance use and abuse V65.42 Active 543818721 Problem Unspecified myalgia and myositis 729.1 Active 567176647 Problem Pain in soft tissues of limb 729.5 A ctive 19829619 Problem Urinary tract infection, site not specified 599.0 Active 68463594 Problem Pain in joint, lower leg 719.46 Activ e 418042475 Problem Chronic airway obstruction, not elsewhere classified 496 Active 91165620 Problem Neurogenic bladder, NOS 596.54 Active 718548089 Problem Acute sinusitis, unspecified 461.9 A ctive 01501771 Problem Personal history of pulmonary embolism V12.55 Active 202520793 Problem Acute bronchitis 466.0 Active 105 78696 Problem Unspecified hearing loss 389.9 Activ e 58200513 Problem Unspecified otalgia 388.70 Active 20354555 Problem Unspecified hereditary and idiopathic peripheral neuropath y 356.9 Active 530881853 Problem Other and unspecified hyperlipidemia 272.4 Active 52039492 Problem Altered mental status 780.97 Active 829945045 Problem Diabetes mellitus without me ntion of complication, type II or unspecified type, not stated as uncontrolled 250.00 Active 209020173 Problem Shortness of breath 786.05 Active 854046057 Problem Other malaise and fatigue 780.79 Acti ve 178122258 Problem Other chronic pain 338.29 Active 8 9149733 Problem Nondependent tobacco use disorder 305.1 Active 724537713 Problem Amphetamine and other psychostimulant de pendence, 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 [address] [facility] [id number] [address] [place] [address] Sep, [facility] [address] [facility] [id number] [address] [place] [address] Sep, [facility] [address] [facility] [id number] [address] [place] [address] Aug, [facility] [address] [facility] [id number] [address] [place] [address] Aug, [facility] [address] [place] [id number] [address] [place] [address] Aug, [facility] [address] [facility] [id number] [address] [place] [address] Aug, [facility] [address] [facility] [id number] [address] [place] [address] Aug, [facility] [address] [facility] [id number] [address] [place] [address] Aug, [facility] [address] [facility] [id number] [address] [place] [address] Jul, [facility] [address] [facility] [id number] [address] [place] [address] Jul, [facility] [address] [place] [id number] [address] [place] [address] Jul, [facility] [address] [id number] [address] [place] [address], [place] [address] Jul, [facility] [address] [id number] [address] [place] [address], [place] [address] Jul, 2014 [facility] [address] [id number] [address] [place] [address], [place] [address] Jul, 2014 [facility] [address] [id number] [address] [place] [address], [place] [address] Jul, [facility] [address] [id number] [address] [place] [address], [place] [address] Jul, [facility] [address] [id number] [address] [place] [address], [place] [address] Jul, [facility] [address] [id number] [address] [place] [address], [place] [address] Jun, [facility] [address] [id number] [address] [place] [address], [place] [address] Jun, [facility] [address] [id number] [address] [place] [address], [place] [address] Jun, [facility] [address] [id number] [address] [place] [address], [place] [address] Jun, [facility] [address] [id number] [address] [place] [address], [place] [address] Jun, [facility] [address] [id number] [address] [place] [address] Jun, [facility] [address] [id number] [address] [place] [address] Jun, [facility] [address] [id number] [address] [place] [address] Jun, [facility] [address] [id number] [address] [place] [address] Jun, [facility] [address] [id number] [address] [place] [address], [place] [address] Jun, [facility] [address] [id number] [address] [place] [address], [place] [address] May, [facility] [address] [id number] [address] [place] [address], [place] [address] May, [facility] [address] [id number] [address] [place] [address], [place] [address] May, [facility] [address] [id number] [address] [place] [address], [place] [address] May, [facility] [address] [id number] [address] [place] [address], [place] [address] May, [facility] [address] [id number] [address] [place] [address], [place] [address] May, [facility] [address] [id number] [address] [place] [address], [place] [address] May, [facility] [address] [id number] [address] [place] [address], [place] [address] May, [facility] [address] [id number] [address] [place] [address], [place] [address] May, [facility] [address] [id number] [address] [place] [address], [place] [address] 15 May, 2014 [facility] [address] [id number] [address] [place] [address], [place] [address] 15 May, 2014 [facility] [address] [id number] [address] [place] [address], [place] [address] Apr, [facility] [address] [id number] [address] [place] [address], [place] [address] Apr, [facility] [address] [id number] [address] [place] [address], [place] [address] 17 Apr, 2014 [facility] [address] [id number] [address] [place] [address], [place] [address] Apr, [facility] [address] [id number] [address] [place] [address], [place] [address] Mar, [facility] [address] [id number] [address] [place] [address], [place] [address] Mar, [facility] [address] [id number] [address] [place] [address], [place] [address] Mar, [facility] [address] [id number] [address] [place] [address], [place] [address] Mar, [facility] [address] [id number] [address] [place] [address], [place] [address] Feb, [facility] [address] [id number] [address] [place] [address], [place] [address] Feb, [facility] [address] [id number] [address] [place] [address], [place] [address] Feb, [facility] [address] [id number] [address] [place] [address], [place] [address] Feb, [facility] [address] [id number] [address] [place] [address], [place] [address] 16 Feb, 2014 [facility] [address] [id number] [address] [place] [address], [place] [address] 16 Feb, 2014 [facility] [address] [id number] [address] [place] [address], [place] [address] Jan, [facility] [address] [id number] [address] [place] [address], [place] [address] Jan, [facility] [address] [id number] [address] [place] [address], [place] [address] Jan, [facility] [address] [id number] [address] [place] [address], [place] [address] Jan, [facility] [address] [id number] [address] [place] [address], [place] [address] Jan, [facility] [address] [id number] [address] [place] [address], [place] [address] Jan, [facility] [address] [id number] [address] [place] [address], [place] [address] Dec, [facility] [address] [id number] [address] [place] [address], [place] [address] Dec, [facility] [address] [id number] [address] [place] [address], [place] [address] Nov, [facility] [address] [id number] [address] [place] [address], [place] [address] Nov, [facility] [address] [id number] [address] [place] [address], [place] [address] Nov, [facility] [address] [id number] [address] [place] [address], [place] [address] Nov, [facility] [address] [id number] [address] [place] [address], [place] [address] Nov, [facility] [address] [id number] [address] [place] [address], [place] [address] Nov, [facility] [address] [id number] [address] [place] [address], [place] [address] Nov, [facility] [address] [id number] [address] [place] [address], [place] [address] October, [facility] [address] [id number] [address] [place] [address], [place] [address] October, [facility] [address] [id number] [address] [place] [address], [place] [address] Sep, [facility] [address] [id number] [address] [place] [address], [place] [address] Sep, [facility] [address] [id number] [address] [place] [address], [place] [address] Sep, [facility] [address] [id number] [address] [place] [address], [place] [address] Sep, [facility] [address] [id number] [facility] [place] [address] 17 Sep, 2013 [facility] [address] [id number] [address] [place] [address], [place] [address] Sep, [facility] [address] [id number] [address] [place] [address], [place] [address] Sep, [facility] [address] [id number] [address] [place] [address], [place] [address] Sep, [facility] [address] [id number] [address] [place] [address], [place] [address] Sep, [facility] [address] [id number] [address] [place] [address], [place] [address] Sep, [facility] [address] [id number] [address] [place] [address], [place] [address] Sep, [facility] [address] [id number] [address] [place] [address], [place] [address] Sep, [facility] [address] [id number] [address] [place] [address], [place] [address] Sep, [facility] [address] [id number] [address] [place] [address], [place] [address] Sep, [facility] [address] [id number] [address] [place] [address], [place] [address] Sep, [facility] [address] [id number] [address] [place] [address], [place] [address] Aug, [facility] [address] [id number] [address] [place] [address], [place] [address] Aug, [facility] [address] [id number] [address] [place] [address], [place] [address] Aug, [facility] [address] [id number] [address] [place] [address], [place] [address] Aug, [facility] [address] [id number] [address] [place] [address], [place] [address] Aug, [facility] [address] [id number] [address] [place] [address], [place] [address] Aug, [facility] [address] [id number] [address] [place] [address], [place] [address] Aug, [facility] [address] [id number] [address] [place] [address], [place] [address] Aug, [facility] [address] [id number] [address] [place] [address], [place] [address] Aug, [facility] [address] [id number] [address] [place] [address], [place] [address] Aug, [facility] [address] [id number] [address] [place] [address], [place] [address] Jun, [facility] [address] [id number] [address] [place] [address], [place] [address] Jun, [facility] [address] [id number] [address] [place] [address], [place] [address] Jun, [facility] [address] [id number] [address] [place] [address], [place] [address] Jun, [facility] [address] [id number] [address] [place] [address], [place] [address] Jun, [facility] [address] [id number] [address] [place] [address], [place] [address] Jun, [facility] [address] [id number] [address] [place] [address], [place] [address] Jun, [facility] [address] [id number] [address] [place] [address], [place] [address] Jun, [facility] [address] [id number] [address] [place] [address], [place] [address] Jun, [facility] [address] [id number] [address] [place] [address], [place] [address] Jun, [facility] [address] [id number] [facility] [place] [address] Jun, [facility] [address] [id number] [facility] [place] [address] Jun, [facility] [address] [id number] [facility] [place] [address] Apr, [facility] [address] [id number] [address] [place] [address], [place] [address] Apr, [facility] [address] [id number] [address] [place] [address], [place] [address] Jan, [facility] [address] [id number] [address] [place] [address], [place] [address] Jan, [facility] [address] [id number] [address] [place] [address], [place] [address] Jan, [facility] [address] [id number] [address] [place] [address], [place] [address] Jan, [facility] [address] [id number] [address] [place] [address], [place] [address] Jan, [facility] [address] [id number] [address] [place] [address], [place] [address] Jan, [facility] [address] [id number] [address] [place] [address], [place] [address] Jan, [facility] [address] [place] [id number] Jan, [facility] [address] [id number] [address] [place] [address], [place] [address] Dec, [facility] [address] [id number] [address] [place] [address], [place] [address] Dec, [facility] [address] [id number] [address] [place] [address], [place] [address] Dec, [facility] [address] [id number] [address] [place] [address], [place] [address] Dec, [facility] [address] [facility] [id number] [address] [place] [address] Dec, [facility] [address] [facility] [id number] [address] [place] [address] Dec, [facility] [address] [facility] [id number] [address] [place] [address] Dec, [facility] [address] [facility] [id number] [address] [place] [address] Nov, [facility] [address] [facility] [id number] [address] [place] [address] Nov, IMMUNIZATIONS No Known Immunizations SOCIAL HISTORY Never Assessed REASON FOR VISIT PLAN OF CARE VITAL SIGNS Height 62 in 2014-02-23 Weight 262.51 lbs 2014-02-23 Temperature 99 degrees Fahrenheit 2014-02-23 Heart Rate 88 bpm 2014-02-23 Respiratory Rate 18 2014-02-23 Blood pressure systolic 124 mmHg 2014-02-23 Blood pressure diastolic 72 mmHg 2014-02-23 MEDICATIONS Unknown Medications RESULTS No Results PROCEDURES No Known procedures INSTRUCTIONS MEDICATIONS ADMINISTERED No Known Medications
--- OUTSIDE RECORDS SUMMARY | 2019-07-25 20:23 | XMS REPORT ---
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 Active Problem Suicide and self-inflicted p oisoning by unspecified drug or medicinal substance E950.5 Active Problem Other dyspnea and respiratory abnormalities 786.09 Active 275787308 Problem Dysuria 788.1 Active 25740909 Problem Congestive heart failure, unspecified 428.0 Active 59305247 Problem Other screening breast examination V76.19 Active 88458040 Problem Unspecified hypotension 458.9 Active 15187391 Problem Other specified disorders of bladder 596.89 Active 00083658 Problem Encounter for long-term (current) use of other medications V58.69 Active 102922175 Problem Counseling on substance use and abuse V65.42 Active 021936649 Problem Unspecified myalgia and myositis 729.1 Active 226676322 Problem Pain in soft tissues of limb 729.5 A ctive 08084072 Problem Urinary tract infection, site not specified 599.0 Active 05666880 Problem Pain in joint, lower leg 719.46 Activ e 128354029 Problem Chronic airway obstruction, not elsewhere classified 496 Active 88436542 Problem Neurogenic bladder, NOS 596.54 Active 859078658 Problem Acute sinusitis, unspecified 461.9 A ctive 35576442 Problem Personal history of pulmonary embolism V12.55 Active 034580735 Problem Acute bronchitis 466.0 Active 105 07466 Problem Unspecified hearing loss 389.9 Activ e 46708780 Problem Unspecified otalgia 388.70 Active 42740750 Problem Unspecified hereditary and idiopathic peripheral neuropath y 356.9 Active 285007795 Problem Other and unspecified hyperlipidemia 272.4 Active 80361717 Problem Altered mental status 780.97 Active 232694790 Problem Diabetes mellitus without me ntion of complication, type II or unspecified type, not stated as uncontrolled 250.00 Active 913410091 Problem Shortness of breath 786.05 Active 341417093 Problem Other malaise and fatigue 780.79 Acti ve 037682391 Problem Other chronic pain 338.29 Active 8 8699346 Problem Nondependent tobacco use disorder 305.1 Active 144897171 Problem Amphetamine and other psychostimulant de pendence, 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 Active Problem Obesity, unspecified 278.00 Active 535604463 ALLERGIES No Information ENCOUNTERS Encounter Location Date Diagnosis [facility] [address] [facility] [id number] [address] [place] [address] Sep, [facility] [address] [facility] [id number] [address] [place] [address] Sep, [facility] [address] [facility] [id number] [address] [place] [address] Aug, [facility] [address] [facility] [id number] [address] [place] [address] Aug, [facility] [address] [place] [id number] [address] [place] [address] Aug, [facility] [address] [facility] [id number] [address] [place] [address] Aug, [facility] [address] [facility] [id number] [address] [place] [address] Aug, [facility] [address] [facility] [id number] [address] [place] [address] Aug, [facility] [address] [facility] [id number] [address] [place] [address] Jul, [facility] [address] [facility] [id number] [address] [place] [address] Jul, [facility] [address] [place] [id number] [address] [place] [address] Jul, [facility] [address] [id number] [address] [place] [address], [place] [address] Jul, [facility] [address] [id number] [address] [place] [address], [place] [address] Jul, 2014 [facility] [address] [id number] [address] [place] [address], [place] [address] Jul, 2014 [facility] [address] [id number] [address] [place] [address], [place] [address] Jul, [facility] [address] [id number] [address] [place] [address], [place] [address] Jul, [facility] [address] [id number] [address] [place] [address], [place] [address] Jul, [facility] [address] [id number] [address] [place] [address], [place] [address] Jun, [facility] [address] [id number] [address] [place] [address], [place] [address] Jun, [facility] [address] [id number] [address] [place] [address], [place] [address] Jun, [facility] [address] [id number] [address] [place] [address], [place] [address] Jun, [facility] [address] [id number] [address] [place] [address], [place] [address] Jun, [facility] [address] [id number] [address] [place] [address] Jun, [facility] [address] [id number] [address] [place] [address] Jun, [facility] [address] [id number] [address] [place] [address] Jun, [facility] [address] [id number] [address] [place] [address] Jun, [facility] [address] [id number] [address] [place] [address], [place] [address] Jun, [facility] [address] [id number] [address] [place] [address], [place] [address] May, [facility] [address] [id number] [address] [place] [address], [place] [address] May, [facility] [address] [id number] [address] [place] [address], [place] [address] May, [facility] [address] [id number] [address] [place] [address], [place] [address] May, [facility] [address] [id number] [address] [place] [address], [place] [address] May, [facility] [address] [id number] [address] [place] [address], [place] [address] May, [facility] [address] [id number] [address] [place] [address], [place] [address] May, [facility] [address] [id number] [address] [place] [address], [place] [address] May, [facility] [address] [id number] [address] [place] [address], [place] [address] May, [facility] [address] [id number] [address] [place] [address], [place] [address] 15 May, 2014 [facility] [address] [id number] [address] [place] [address], [place] [address] 15 May, 2014 [facility] [address] [id number] [address] [place] [address], [place] [address] Apr, [facility] [address] [id number] [address] [place] [address], [place] [address] Apr, [facility] [address] [id number] [address] [place] [address], [place] [address] 17 Apr, 2014 [facility] [address] [id number] [address] [place] [address], [place] [address] Apr, [facility] [address] [id number] [address] [place] [address], [place] [address] Mar, [facility] [address] [id number] [address] [place] [address], [place] [address] Mar, [facility] [address] [id number] [address] [place] [address], [place] [address] Mar, [facility] [address] [id number] [address] [place] [address], [place] [address] Mar, [facility] [address] [id number] [address] [place] [address], [place] [address] Feb, [facility] [address] [id number] [address] [place] [address], [place] [address] Feb, [facility] [address] [id number] [address] [place] [address], [place] [address] Feb, [facility] [address] [id number] [address] [place] [address], [place] [address] Feb, [facility] [address] [id number] [address] [place] [address], [place] [address] 16 Feb, 2014 [facility] [address] [id number] [address] [place] [address], [place] [address] 16 Feb, 2014 [facility] [address] [id number] [address] [place] [address], [place] [address] Jan, [facility] [address] [id number] [address] [place] [address], [place] [address] Jan, [facility] [address] [id number] [address] [place] [address], [place] [address] Jan, [facility] [address] [id number] [address] [place] [address], [place] [address] Jan, [facility] [address] [id number] [address] [place] [address], [place] [address] Jan, [facility] [address] [id number] [address] [place] [address], [place] [address] Jan, [facility] [address] [id number] [address] [place] [address], [place] [address] Dec, [facility] [address] [id number] [address] [place] [address], [place] [address] Dec, [facility] [address] [id number] [address] [place] [address], [place] [address] Nov, [facility] [address] [id number] [address] [place] [address], [place] [address] Nov, [facility] [address] [id number] [address] [place] [address], [place] [address] Nov, [facility] [address] [id number] [address] [place] [address], [place] [address] Nov, [facility] [address] [id number] [address] [place] [address], [place] [address] Nov, [facility] [address] [id number] [address] [place] [address], [place] [address] Nov, [facility] [address] [id number] [address] [place] [address], [place] [address] Nov, [facility] [address] [id number] [address] [place] [address], [place] [address] October, [facility] [address] [id number] [address] [place] [address], [place] [address] October, [facility] [address] [id number] [address] [place] [address], [place] [address] Sep, [facility] [address] [id number] [address] [place] [address], [place] [address] Sep, [facility] [address] [id number] [address] [place] [address], [place] [address] Sep, [facility] [address] [id number] [address] [place] [address], [place] [address] Sep, [facility] [address] [id number] [facility] [place] [address] 17 Sep, 2013 [facility] [address] [id number] [address] [place] [address], [place] [address] Sep, [facility] [address] [id number] [address] [place] [address], [place] [address] Sep, [facility] [address] [id number] [address] [place] [address], [place] [address] Sep, [facility] [address] [id number] [address] [place] [address], [place] [address] Sep, [facility] [address] [id number] [address] [place] [address], [place] [address] Sep, [facility] [address] [id number] [address] [place] [address], [place] [address] Sep, [facility] [address] [id number] [address] [place] [address], [place] [address] Sep, [facility] [address] [id number] [address] [place] [address], [place] [address] Sep, [facility] [address] [id number] [address] [place] [address], [place] [address] Sep, [facility] [address] [id number] [address] [place] [address], [place] [address] Sep, [facility] [address] [id number] [address] [place] [address], [place] [address] Aug, [facility] [address] [id number] [address] [place] [address], [place] [address] Aug, [facility] [address] [id number] [address] [place] [address], [place] [address] Aug, [facility] [address] [id number] [address] [place] [address], [place] [address] Aug, [facility] [address] [id number] [address] [place] [address], [place] [address] Aug, [facility] [address] [id number] [address] [place] [address], [place] [address] Aug, [facility] [address] [id number] [address] [place] [address], [place] [address] Aug, [facility] [address] [id number] [address] [place] [address], [place] [address] Aug, [facility] [address] [id number] [address] [place] [address], [place] [address] Aug, [facility] [address] [id number] [address] [place] [address], [place] [address] Aug, [facility] [address] [id number] [address] [place] [address], [place] [address] Jun, [facility] [address] [id number] [address] [place] [address], [place] [address] Jun, [facility] [address] [id number] [address] [place] [address], [place] [address] Jun, [facility] [address] [id number] [address] [place] [address], [place] [address] Jun, [facility] [address] [id number] [address] [place] [address], [place] [address] Jun, [facility] [address] [id number] [address] [place] [address], [place] [address] Jun, [facility] [address] [id number] [address] [place] [address], [place] [address] Jun, [facility] [address] [id number] [address] [place] [address], [place] [address] Jun, [facility] [address] [id number] [address] [place] [address], [place] [address] Jun, [facility] [address] [id number] [address] [place] [address], [place] [address] Jun, [facility] [address] [id number] [facility] [place] [address] Jun, [facility] [address] [id number] [facility] [address] Jun, [facility] [address] [id number] [facility] [place] [address] Apr, [facility] [address] [id number] [address] [place] [address], [place] [address] Apr, [facility] [address] [id number] [address] [place] [address], [place] [address] Jan, [facility] [address] [id number] [address] [place] [address], [place] [address] Jan, [facility] [address] [id number] [address] [place] [address], [place] [address] Jan, [facility] [address] [id number] [address] [place] [address], [place] [address] Jan, [facility] [address] [id number] [address] [place] [address], [place] [address] Jan, [facility] [address] [id number] [address] [place] [address], [place] [address] Jan, [facility] [address] [id number] [address] [place] [address], [place] [address] Jan, [facility] [address] [place] [id number] Jan, [facility] [address] [id number] [address] [place] [address], [place] [address] Dec, [facility] [address] [id number] [address] [place] [address], [place] [address] Dec, [facility] [address] [id number] [address] [place] [address], [place] [address] Dec, [facility] [address] [id number] [address] [place] [address], [place] [address] Dec, [facility] [address] [facility] [id number] [address] [place] [address] Dec, [facility] [address] [facility] [id number] [address] [place] [address] Dec, [facility] [address] [facility] [id number] [address] [place] [address] Dec, [facility] [address] [facility] [id number] [address] [place] [address] Nov, [facility] [address] [facility] [id number] [address] [place] [address] Nov, IMMUNIZATIONS No Known Immunizations SOCIAL HISTORY Never Assessed REASON FOR VISIT PLAN OF CARE VITAL SIGNS MEDICATIONS Unknown Medications RESULTS No Results PROCEDURES No Known procedures INSTRUCTIONS MEDICATIONS ADMINISTERED No Known Medications
--- OUTSIDE RECORDS SUMMARY | 2019-07-25 20:23 | XMS REPORT ---
Author Author Ayden Payne Doctor Organization 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 Active Problem Suicide and self-inflicted p oisoning by unspecified drug or medicinal substance E950.5 Active Problem Other dyspnea and respiratory abnormalities 786.09 Active 893774328 Problem Dysuria 788.1 Active 70877744 Problem Congestive heart failure, unspecified 428.0 Active 97461952 Problem Other screening breast examination V76.19 Active 37566422 Problem Unspecified hypotension 458.9 Active 20515191 Problem Other specified disorders of bladder 596.89 Active 43925941 Problem Encounter for long-term (current) use of other medications V58.69 Active 933327025 Problem Counseling on substance use and abuse V65.42 Active 912148952 Problem Unspecified myalgia and myositis 729.1 Active 849690324 Problem Pain in soft tissues of limb 729.5 A ctive 96689691 Problem Urinary tract infection, site not specified 599.0 Active 85001856 Problem Pain in joint, lower leg 719.46 Activ e 672613650 Problem Chronic airway obstruction, not elsewhere classified 496 Active 46755375 Problem Neurogenic bladder, NOS 596.54 Active 266978569 Problem Acute sinusitis, unspecified 461.9 A ctive 87486776 Problem Personal history of pulmonary embolism V12.55 Active 710726485 Problem Acute bronchitis 466.0 Active 105 38037 Problem Unspecified hearing loss 389.9 Activ e 72531324 Problem Unspecified otalgia 388.70 Active 22847506 Problem Unspecified hereditary and idiopathic peripheral neuropath y 356.9 Active 747816683 Problem Other and unspecified hyperlipidemia 272.4 Active 77074682 Problem Altered mental status 780.97 Active 961381421 Problem Diabetes mellitus without me ntion of complication, type II or unspecified type, not stated as uncontrolled 250.00 Active 434026633 Problem Shortness of breath 786.05 Active 546282226 Problem Other malaise and fatigue 780.79 Acti ve 637305242 Problem Other chronic pain 338.29 Active 8 9535405 Problem Nondependent tobacco use disorder 305.1 Active 075595600 Problem Amphetamine and other psychostimulant de pendence, 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 Active Problem Obesity, unspecified 278.00 Active [id number] ALLERGIES No Information ENCOUNTERS Encounter Location Date Diagnosis [facility] [address] [facility] [id number] [address] [place] [address] Sep, [facility] [address] [facility] [id number] [address] [place] [address] Sep, [facility] [address] [facility] [id number] [address] [place] [address] Aug, [facility] [address] [facility] [id number] [address] [place] [address] Aug, [facility] [address] [place] [id number] [address] [place] [address] Aug, [facility] [address] [facility] [id number] [address] [place] [address] Aug, [facility] [address] [facility] [id number] [address] [place] [address] Aug, [facility] [address] [facility] [id number] [address] [place] [address] Aug, [facility] [address] [facility] [id number] [address] [place] [address] Jul, [facility] [address] [facility] [id number] [address] [place] [address] Jul, [facility] [address] [place] [id number] [address] [place] [address] Jul, [facility] [address] [id number] [address] [place] [address], [place] [address] Jul, [facility] [address] [id number] [address] [place] [address], [place] [address] Jul, 2014 [facility] [address] [id number] [address] [place] [address], [place] [address] Jul, 2014 [facility] [address] [id number] [address] [place] [address], [place] [address] Jul, [facility] [address] [id number] [address] [place] [address], [place] [address] Jul, [facility] [address] [id number] [address] [place] [address], [place] [address] Jul, [facility] [address] [id number] [address] [place] [address], [place] [address] Jun, [facility] [address] [id number] [address] [place] [address], [place] [address] Jun, [facility] [address] [id number] [address] [place] [address], [place] [address] Jun, [facility] [address] [id number] [address] [place] [address], [place] [address] Jun, [facility] [address] [id number] [address] [place] [address], [place] [address] Jun, [facility] [address] [id number] [address] [place] [address] Jun, [facility] [address] [id number] [address] [place] [address] Jun, [facility] [address] [id number] [address] [place] [address] Jun, [facility] [address] [id number] [address] [place] [address] Jun, [facility] [address] [id number] [address] [place] [address], [place] [address] Jun, [facility] [address] [id number] [address] [place] [address], [place] [address] May, [facility] [address] [id number] [address] [place] [address], [place] [address] May, [facility] [address] [id number] [address] [place] [address], [place] [address] May, [facility] [address] [id number] [address] [place] [address], [place] [address] May, [facility] [address] [id number] [address] [place] [address], [place] [address] May, [facility] [address] [id number] [address] [place] [address], [place] [address] May, [facility] [address] [id number] [address] [place] [address], [place] [address] May, [facility] [address] [id number] [address] [place] [address], [place] [address] May, [facility] [address] [id number] [address] [place] [address], [place] [address] May, [facility] [address] [id number] [address] [place] [address], [place] [address] 15 May, 2014 [facility] [address] [id number] [address] [place] [address], [place] [address] 15 May, 2014 [facility] [address] [id number] [address] [place] [address], [place] [address] Apr, [facility] [address] [id number] [address] [place] [address], [place] [address] Apr, [facility] [address] [id number] [address] [place] [address], [place] [address] 17 Apr, 2014 [facility] [address] [id number] [address] [place] [address], [place] [address] Apr, [facility] [address] [id number] [address] [place] [address], [place] [address] Mar, [facility] [address] [id number] [address] [place] [address], [place] [address] Mar, [facility] [address] [id number] [address] [place] [address], [place] [address] Mar, [facility] [address] [id number] [address] [place] [address], [place] [address] Mar, [facility] [address] [id number] [address] [place] [address], [place] [address] Feb, [facility] [address] [id number] [address] [place] [address], [place] [address] Feb, [facility] [address] [id number] [address] [place] [address], [place] [address] Feb, [facility] [address] [id number] [address] [place] [address], [place] [address] Feb, [facility] [address] [id number] [address] [place] [address], [place] [address] 16 Feb, 2014 [facility] [address] [id number] [address] [place] [address], [place] [address] 16 Feb, 2014 [facility] [address] [id number] [address] [place] [address], [place] [address] Jan, [facility] [address] [id number] [address] [place] [address], [place] [address] Jan, [facility] [address] [id number] [address] [place] [address], [place] [address] Jan, [facility] [address] [id number] [address] [place] [address], [place] [address] Jan, [facility] [address] [id number] [address] [place] [address], [place] [address] Jan, [facility] [address] [id number] [address] [place] [address], [place] [address] Jan, [facility] [address] [id number] [address] [place] [address], [place] [address] Dec, [facility] [address] [id number] [address] [place] [address], [place] [address] Dec, [facility] [address] [id number] [address] [place] [address], [place] [address] Nov, [facility] [address] [id number] [address] [place] [address], [place] [address] Nov, [facility] [address] [id number] [address] [place] [address], [place] [address] Nov, [facility] [address] [id number] [address] [place] [address], [place] [address] Nov, [facility] [address] [id number] [address] [place] [address], [place] [address] Nov, [facility] [address] [id number] [address] [place] [address], [place] [address] Nov, [facility] [address] [id number] [address] [place] [address], [place] [address] Nov, [facility] [address] [id number] [address] [place] [address], [place] [address] October, [facility] [address] [id number] [address] [place] [address], [place] [address] October, [facility] [address] [id number] [address] [place] [address], [place] [address] Sep, [facility] [address] [id number] [address] [place] [address], [place] [address] Sep, [facility] [address] [id number] [address] [place] [address], [place] [address] Sep, [facility] [address] [id number] [address] [place] [address], [place] [address] Sep, [facility] [address] [id number] [facility] [place] [address] 17 Sep, 2013 [facility] [address] [id number] [address] [place] [address], [place] [address] Sep, [facility] [address] [id number] [address] [place] [address], [place] [address] Sep, [facility] [address] [id number] [address] [place] [address], [place] [address] Sep, [facility] [address] [id number] [address] [place] [address], [place] [address] Sep, [facility] [address] [id number] [address] [place] [address], [place] [address] Sep, [facility] [address] [id number] [address] [place] [address], [place] [address] Sep, [facility] [address] [id number] [address] [place] [address], [place] [address] Sep, [facility] [address] [id number] [address] [place] [address], [place] [address] Sep, [facility] [address] [id number] [address] [place] [address], [place] [address] Sep, [facility] [address] [id number] [address] [place] [address], [place] [address] Sep, [facility] [address] [id number] [address] [place] [address], [place] [address] Aug, [facility] [address] [id number] [address] [place] [address], [place] [address] Aug, [facility] [address] [id number] [address] [place] [address], [place] [address] Aug, [facility] [address] [id number] [address] [place] [address], [place] [address] Aug, [facility] [address] [id number] [address] [place] [address], [place] [address] Aug, [facility] [address] [id number] [address] [place] [address], [place] [address] Aug, [facility] [address] [id number] [address] [place] [address], [place] [address] Aug, [facility] [address] [id number] [address] [place] [address], [place] [address] Aug, [facility] [address] [id number] [address] [place] [address], [place] [address] Aug, [facility] [address] [id number] [address] [place] [address], [place] [address] Aug, [facility] [address] [id number] [address] [place] [address], [place] [address] Jun, [facility] [address] [id number] [address] [place] [address], [place] [address] Jun, [facility] [address] [id number] [address] [place] [address], [place] [address] Jun, [facility] [address] [id number] [address] [place] [address], [place] [address] Jun, [facility] [address] [id number] [address] [place] [address], [place] [address] Jun, [facility] [address] [id number] [address] [place] [address], [place] [address] Jun, [facility] [address] [id number] [address] [place] [address], [place] [address] Jun, [facility] [address] [id number] [address] [place] [address], [place] [address] Jun, [facility] [address] [id number] [address] [place] [address], [place] [address] Jun, [facility] [address] [id number] [address] [place] [address], [place] [address] Jun, [facility] [address] [id number] [facility] [place] [address] Jun, [facility] [address] [id number] [facility] [place] [address] Jun, [facility] [address] [id number] [facility] [place] [address] Apr, [facility] [address] [id number] [address] [place] [address], [place] [address] Apr, [facility] [address] [id number] [address] [place] [address], [place] [address] Jan, [facility] [address] [id number] [address] [place] [address], [place] [address] Jan, [facility] [address] [id number] [address] [place] [address], [place] [address] Jan, [facility] [address] [id number] [address] [place] [address], [place] [address] Jan, [facility] [address] [id number] [address] [place] [address], [place] [address] Jan, [facility] [address] [id number] [address] [place] [address], [place] [address] Jan, [facility] [address] [id number] [address] [place] [address], [place] [address] Jan, [facility] [address] [place] [id number] Jan, [facility] [address] [id number] [address] [place] [address], [place] [address] Dec, [facility] [address] [id number] [address] [place] [address], [place] [address] Dec, [facility] [address] [id number] [address] [place] [address], [place] [address] Dec, [facility] [address] [id number] [address] [place] [address], [place] [address] Dec, [facility] [address] [facility] [id number] [address] [place] [address] Dec, [facility] [address] [facility] [id number] [address] [place] [address] Dec, [facility] [address] [facility] [id number] [address] [place] [address] Dec, [facility] [address] [facility] [id number] [address] [place] [address] Nov, [facility] [address] [facility] [id number] [address] [place] [address] Nov, IMMUNIZATIONS No Known Immunizations SOCIAL HISTORY Never Assessed REASON FOR VISIT PLAN OF CARE VITAL SIGNS Height 62 in 2014-03-30 Weight 268.89 lbs 2014-03-30 Temperature 96.6 degrees Fahrenheit 2014-03-30 Heart Rate 86 bpm 2014-03-30 Respiratory Rate 20 2014-03-30 Blood pressure systolic 124 mmHg 2014-03-30 Blood pressure diastolic 74 mmHg 2014-03-30 MEDICATIONS Unknown Medications RESULTS No Results PROCEDURES No Known procedures INSTRUCTIONS MEDICATIONS ADMINISTERED No Known Medications
--- OUTSIDE RECORDS SUMMARY | 2019-07-25 20:24 | XMS REPORT ---
Author Author Ayden Payne Doctor Organization [facility] Address Unknown Phone Unavailable Care Team Providers Care Territory Manager General Sales Name Role Phone Migration, Doctor Unavailable Unavailable PROBLEMS ALLERGIES No Information ENCOUNTERS IMMUNIZATIONS No Known Immunizations SOCIAL HISTORY No smoking Hx information available REASON FOR VISIT PLAN OF CARE VITAL SIGNS MEDICATIONS Unknown Medications RESULTS No Results PROCEDURES No Known procedures INSTRUCTIONS MEDICATIONS ADMINISTERED No Known Medications
--- OUTSIDE RECORDS SUMMARY | 2019-07-25 20:24 | XMS REPORT ---
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 Active Problem Suicide and self-inflicted p oisoning by unspecified drug or medicinal substance E950.5 Active Problem Other dyspnea and respiratory abnormalities 786.09 Active 950763216 Problem Dysuria 788.1 Active 18341240 Problem Congestive heart failure, unspecified 428.0 Active 38191442 Problem Other screening breast examination V76.19 Active 14275440 Problem Unspecified hypotension 458.9 Active 62676113 Problem Other specified disorders of bladder 596.89 Active 65581004 Problem Encounter for long-term (current) use of other medications V58.69 Active 491055311 Problem Counseling on substance use and abuse V65.42 Active 757896167 Problem Unspecified myalgia and myositis 729.1 Active 509430377 Problem Pain in soft tissues of limb 729.5 A ctive 13705746 Problem Urinary tract infection, site not specified 599.0 Active 85098605 Problem Pain in joint, lower leg 719.46 Activ e 877695767 Problem Chronic airway obstruction, not elsewhere classified 496 Active 71629137 Problem Neurogenic bladder, NOS 596.54 Active 865485928 Problem Acute sinusitis, unspecified 461.9 A ctive 05715657 Problem Personal history of pulmonary embolism V12.55 Active 865941423 Problem Acute bronchitis 466.0 Active 105 38163 Problem Unspecified hearing loss 389.9 Activ e 94510253 Problem Unspecified otalgia 388.70 Active 06512577 Problem Unspecified hereditary and idiopathic peripheral neuropath y 356.9 Active 458009132 Problem Other and unspecified hyperlipidemia 272.4 Active 13474176 Problem Altered mental status 780.97 Active 196745974 Problem Diabetes mellitus without me ntion of complication, type II or unspecified type, not stated as uncontrolled 250.00 Active 879927926 Problem Shortness of breath 786.05 Active 876778137 Problem Other malaise and fatigue 780.79 Acti ve 322135694 Problem Other chronic pain 338.29 Active 8 7897254 Problem Nondependent tobacco use disorder 305.1 Active 516275369 Problem Amphetamine and other psychostimulant de pendence, 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 Active Problem Obesity, unspecified 278.00 Active 192841278 ALLERGIES No Information ENCOUNTERS Encounter Location Date Diagnosis [facility] [address] [facility] [id number] [address] [place] [address] Sep, [facility] [address] [facility] [id number] [address] [place] [address] Sep, [facility] [address] [facility] [id number] [address] [place] [address] Aug, [facility] [address] [facility] [id number] [address] [place] [address] Aug, [facility] [address] [place] [id number] [address] [place] [address] Aug, [facility] [address] [facility] [id number] [address] [place] [address] Aug, [facility] [address] [facility] [id number] [address] [place] [address] Aug, [facility] [address] [facility] [id number] [address] [place] [address] Aug, [facility] [address] [facility] [id number] [address] [place] [address] Jul, [facility] [address] [facility] [id number] [address] [place] [address] Jul, [facility] [address] [place] [id number] [address] [place] [address] Jul, [facility] [address] [id number] [address] [place] [address], [place] [address] Jul, [facility] [address] [id number] [address] [place] [address], [place] [address] Jul, 2014 [facility] [address] [id number] [address] [place] [address], [place] [address] Jul, 2014 [facility] [address] [id number] [address] [place] [address], [place] [address] Jul, [facility] [address] [id number] [address] [place] [address], [place] [address] Jul, [facility] [address] [id number] [address] [place] [address], [place] [address] Jul, [facility] [address] [id number] [address] [place] [address], [place] [address] Jun, [facility] [address] [id number] [address] [place] [address], [place] [address] Jun, [facility] [address] [id number] [address] [place] [address], [place] [address] Jun, [facility] [address] [id number] [address] [place] [address], [place] [address] Jun, [facility] [address] [id number] [address] [place] [address], [place] [address] Jun, [facility] [address] [id number] [address] [place] [address] Jun, [facility] [address] [id number] [address] [place] [address] Jun, [facility] [address] [id number] [address] [place] [address] Jun, [facility] [address] [id number] [address] [place] [address] Jun, [facility] [address] [id number] [address] [place] [address], [place] [address] Jun, [facility] [address] [id number] [address] [place] [address], [place] [address] May, [facility] [address] [id number] [address] [place] [address], [place] [address] May, [facility] [address] [id number] [address] [place] [address], [place] [address] May, [facility] [address] [id number] [address] [place] [address], [place] [address] May, [facility] [address] [id number] [address] [place] [address], [place] [address] May, [facility] [address] [id number] [address] [place] [address], [place] [address] May, [facility] [address] [id number] [address] [place] [address], [place] [address] May, [facility] [address] [id number] [address] [place] [address], [place] [address] May, [facility] [address] [id number] [address] [place] [address], [place] [address] May, [facility] [address] [id number] [address] [place] [address], [place] [address] 15 May, 2014 [facility] [address] [id number] [address] [place] [address], [place] [address] 15 May, 2014 [facility] [address] [id number] [address] [place] [address], [place] [address] Apr, [facility] [address] [id number] [address] [place] [address], [place] [address] Apr, [facility] [address] [id number] [address] [place] [address], [place] [address] 17 Apr, 2014 [facility] [address] [id number] [address] [place] [address], [place] [address] Apr, [facility] [address] [id number] [address] [place] [address], [place] [address] Mar, [facility] [address] [id number] [address] [place] [address], [place] [address] Mar, [facility] [address] [id number] [address] [place] [address], [place] [address] Mar, [facility] [address] [id number] [address] [place] [address], [place] [address] Mar, [facility] [address] [id number] [address] [place] [address], [place] [address] Feb, [facility] [address] [id number] [address] [place] [address], [place] [address] Feb, [facility] [address] [id number] [address] [place] [address], [place] [address] Feb, [facility] [address] [id number] [address] [place] [address], [place] [address] Feb, [facility] [address] [id number] [address] [place] [address], [place] [address] 16 Feb, 2014 [facility] [address] [id number] [address] [place] [address], [place] [address] 16 Feb, 2014 [facility] [address] [id number] [address] [place] [address], [place] [address] Jan, [facility] [address] [id number] [address] [place] [address], [place] [address] Jan, [facility] [address] [id number] [address] [place] [address], [place] [address] Jan, [facility] [address] [id number] [address] [place] [address], [place] [address] Jan, [facility] [address] [id number] [address] [place] [address], [place] [address] Jan, [facility] [address] [id number] [address] [place] [address], [place] [address] Jan, [facility] [address] [id number] [address] [place] [address], [place] [address] Dec, [facility] [address] [id number] [address] [place] [address], [place] [address] Dec, [facility] [address] [id number] [address] [place] [address], [place] [address] Nov, [facility] [address] [id number] [address] [place] [address], [place] [address] Nov, [facility] [address] [id number] [address] [place] [address], [place] [address] Nov, [facility] [address] [id number] [address] [place] [address], [place] [address] Nov, [facility] [address] [id number] [address] [place] [address], [place] [address] Nov, [facility] [address] [id number] [address] [place] [address], [place] [address] Nov, [facility] [address] [id number] [address] [place] [address], [place] [address] Nov, [facility] [address] [id number] [address] [place] [address], [place] [address] October, [facility] [address] [id number] [address] [place] [address], [place] [address] October, [facility] [address] [id number] [address] [place] [address], [place] [address] Sep, [facility] [address] [id number] [address] [place] [address], [place] [address] Sep, [facility] [address] [id number] [address] [place] [address], [place] [address] Sep, [facility] [address] [id number] [address] [place] [address], [place] [address] Sep, [facility] [address] [id number] [facility] [place] [address] 17 Sep, 2013 [facility] [address] [id number] [address] [place] [address], [place] [address] Sep, [facility] [address] [id number] [address] [place] [address], [place] [address] Sep, [facility] [address] [id number] [address] [place] [address], [place] [address] Sep, [facility] [address] [id number] [address] [place] [address], [place] [address] Sep, [facility] [address] [id number] [address] [place] [address], [place] [address] Sep, [facility] [address] [id number] [address] [place] [address], [place] [address] Sep, [facility] [address] [id number] [address] [place] [address], [place] [address] Sep, [facility] [address] [id number] [address] [place] [address], [place] [address] Sep, [facility] [address] [id number] [address] [place] [address], [place] [address] Sep, [facility] [address] [id number] [address] [place] [address], [place] [address] Sep, [facility] [address] [id number] [address] [place] [address], [place] [address] Aug, [facility] [address] [id number] [address] [place] [address], [place] [address] Aug, [facility] [address] [id number] [address] [place] [address], [place] [address] Aug, [facility] [address] [id number] [address] [place] [address], [place] [address] Aug, [facility] [address] [id number] [address] [place] [address], [place] [address] Aug, [facility] [address] [id number] [address] [place] [address], [place] [address] Aug, [facility] [address] [id number] [address] [place] [address], [place] [address] Aug, [facility] [address] [id number] [address] [place] [address], [place] [address] Aug, [facility] [address] [id number] [address] [place] [address], [place] [address] Aug, [facility] [address] [id number] [address] [place] [address], [place] [address] Aug, [facility] [address] [id number] [address] [place] [address], [place] [address] Jun, [facility] [address] [id number] [address] [place] [address], [place] [address] Jun, [facility] [address] [id number] [address] [place] [address], [place] [address] Jun, [facility] [address] [id number] [address] [place] [address], [place] [address] Jun, [facility] [address] [id number] [address] [place] [address], [place] [address] Jun, [facility] [address] [id number] [address] [place] [address], [place] [address] Jun, [facility] [address] [id number] [address] [place] [address], [place] [address] Jun, [facility] [address] [id number] [address] [place] [address], [place] [address] Jun, [facility] [address] [id number] [address] [place] [address], [place] [address] Jun, [facility] [address] [id number] [address] [place] [address], [place] [address] Jun, [facility] [address] [id number] [facility] [place] [address] Jun, [facility] [address] [id number] [facility] [place] [address] Jun, [facility] [address] [id number] [facility] [place] [address] Apr, [facility] [address] [id number] [address] [place] [address], [place] [address] Apr, [facility] [address] [id number] [address] [place] [address], [place] [address] Jan, [facility] [address] [id number] [address] [place] [address], [place] [address] Jan, [facility] [address] [id number] [address] [place] [address], [place] [address] Jan, [facility] [address] [id number] [address] [place] [address], [place] [address] Jan, [facility] [address] [id number] [address] [place] [address], [place] [address] Jan, [facility] [address] [id number] [address] [place] [address], [place] [address] Jan, [facility] [address] [id number] [address] [place] [address], [place] [address] Jan, [facility] [address] [place] [id number] Jan, [facility] [address] [id number] [address] [place] [address], [place] [address] Dec, [facility] [address] [id number] [address] [place] [address], [place] [address] Dec, [facility] [address] [id number] [address] [place] [address], [place] [address] Dec, [facility] [address] [id number] [address] [place] [address], [place] [address] Dec, [facility] [address] [facility] [id number] [address] [place] [address] Dec, [facility] [address] [facility] [id number] [address] [place] [address] Dec, [facility] [address] [facility] [id number] [address] [place] [address] Dec, [facility] [address] [facility] [id number] [address] [place] [address] Nov, [facility] [address] [facility] [id number] [address] [place] [address] Nov, IMMUNIZATIONS No Known Immunizations SOCIAL HISTORY Never Assessed REASON FOR VISIT PLAN OF CARE VITAL SIGNS Height 62 in 2014-06-08 Weight 267.6 lbs 2014-06-08 Temperature 97.4 degrees Fahrenheit 2014-06-08 Heart Rate 86 bpm 2014-06-08 Respiratory Rate 20 2014-06-08 Blood pressure systolic 118 mmHg 2014-06-08 Blood pressure diastolic 82 mmHg 2014-06-08 MEDICATIONS Unknown Medications RESULTS No Results PROCEDURES No Known procedures INSTRUCTIONS MEDICATIONS ADMINISTERED No Known Medications
--- OUTSIDE RECORDS SUMMARY | 2019-07-25 20:24 | XMS REPORT ---
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 Active Problem Suicide and self-inflicted p oisoning by unspecified drug or medicinal substance E950.5 Active Problem Other dyspnea and respiratory abnormalities 786.09 Active 067237931 Problem Dysuria 788.1 Active 93737727 Problem Congestive heart failure, unspecified 428.0 Active 97895406 Problem Other screening breast examination V76.19 Active 74040430 Problem Unspecified hypotension 458.9 Active 73900912 Problem Other specified disorders of bladder 596.89 Active 63072291 Problem Encounter for long-term (current) use of other medications V58.69 Active 233980261 Problem Counseling on substance use and abuse V65.42 Active 413355062 Problem Unspecified myalgia and myositis 729.1 Active 690861065 Problem Pain in soft tissues of limb 729.5 A ctive 95153471 Problem Urinary tract infection, site not specified 599.0 Active 45069420 Problem Pain in joint, lower leg 719.46 Activ e 218807806 Problem Chronic airway obstruction, not elsewhere classified 496 Active 48476403 Problem Neurogenic bladder, NOS 596.54 Active 998091242 Problem Acute sinusitis, unspecified 461.9 A ctive 99474864 Problem Personal history of pulmonary embolism V12.55 Active 628890059 Problem Acute bronchitis 466.0 Active 105 65621 Problem Unspecified hearing loss 389.9 Activ e 24924933 Problem Unspecified otalgia 388.70 Active 84642548 Problem Unspecified hereditary and idiopathic peripheral neuropath y 356.9 Active 049595300 Problem Other and unspecified hyperlipidemia 272.4 Active 76606080 Problem Altered mental status 780.97 Active 211691265 Problem Diabetes mellitus without me ntion of complication, type II or unspecified type, not stated as uncontrolled 250.00 Active 017860239 Problem Shortness of breath 786.05 Active 010862841 Problem Other malaise and fatigue 780.79 Acti ve 374966331 Problem Other chronic pain 338.29 Active 8 3088912 Problem Nondependent tobacco use disorder 305.1 Active 912855243 Problem Amphetamine and other psychostimulant de pendence, 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 Active Problem Obesity, unspecified 278.00 Active 554816311 ALLERGIES No Information ENCOUNTERS Encounter Location Date Diagnosis [facility] [address] [facility] [id number] [address] [place] [address] Sep, [facility] [address] [facility] [id number] [address] [place] [address] Sep, [facility] [address] [facility] [id number] [address] [place] [address] Aug, [facility] [address] [facility] [id number] [address] [place] [address] Aug, [facility] [address] [place] [id number] [address] [place] [address] Aug, [facility] [address] [facility] [id number] [address] [place] [address] Aug, [facility] [address] [facility] [id number] [address] [place] [address] Aug, [facility] [address] [facility] [id number] [address] [place] [address] Aug, [facility] [address] [facility] [id number] [address] [place] [address] Jul, [facility] [address] [facility] [id number] [address] [place] [address] Jul, [facility] [address] [id number] [address] [place] [address] Jul, [facility] [address] [id number] [address] [place] [address], [place] [address] Jul, [facility] [address] [id number] [address] [place] [address], [place] [address] Jul, 2014 [facility] [address] [id number] [address] [place] [address], [place] [address] Jul, 2014 [facility] [address] [id number] [address] [place] [address], [place] [address] Jul, [facility] [address] [id number] [address] [place] [address], [place] [address] Jul, [facility] [address] [id number] [address] [place] [address], [place] [address] Jul, [facility] [address] [id number] [address] [place] [address], [place] [address] Jun, [facility] [address] [id number] [address] [place] [address], [place] [address] Jun, [facility] [address] [id number] [address] [place] [address], [place] [address] Jun, [facility] [address] [id number] [address] [place] [address], [place] [address] Jun, [facility] [address] [id number] [address] [place] [address], [place] [address] Jun, [facility] [address] [id number] [address] [place] [address] Jun, [facility] [address] [id number] [address] [place] [address] Jun, [facility] [address] [id number] [address] [place] [address] Jun, [facility] [address] [id number] [address] [place] [address] Jun, [facility] [address] [id number] [address] [place] [address], [place] [address] Jun, [facility] [address] [id number] [address] [place] [address], [place] [address] May, [facility] [address] [id number] [address] [place] [address], [place] [address] May, [facility] [address] [id number] [address] [place] [address], [place] [address] May, [facility] [address] [id number] [address] [place] [address], [place] [address] May, [facility] [address] [id number] [address] [place] [address], [place] [address] May, [facility] [address] [id number] [address] [place] [address], [place] [address] May, [facility] [address] [id number] [address] [place] [address], [place] [address] May, [facility] [address] [id number] [address] [place] [address], [place] [address] May, [facility] [address] [id number] [address] [place] [address], [place] [address] May, [facility] [address] [id number] [address] [place] [address], [place] [address] 15 May, 2014 [facility] [address] [id number] [address] [place] [address], [place] [address] 15 May, 2014 [facility] [address] [id number] [address] [place] [address], [place] [address] Apr, [facility] [address] [id number] [address] [place] [address], [place] [address] Apr, [facility] [address] [id number] [address] [place] [address], [place] [address] 17 Apr, 2014 [facility] [address] [id number] [address] [place] [address], [place] [address] Apr, [facility] [address] [id number] [address] [place] [address], [place] [address] Mar, [facility] [address] [id number] [address] [place] [address], [place] [address] Mar, [facility] [address] [id number] [address] [place] [address], [place] [address] Mar, [facility] [address] [id number] [address] [place] [address], [place] [address] Mar, [facility] [address] [id number] [address] [place] [address], [place] [address] Feb, [facility] [address] [id number] [address] [place] [address], [place] [address] Feb, [facility] [address] [id number] [address] [place] [address], [place] [address] Feb, [facility] [address] [id number] [address] [place] [address], [place] [address] Feb, [facility] [address] [id number] [address] [place] [address], [place] [address] 16 Feb, 2014 [facility] [address] [id number] [address] [place] [address], [place] [address] 16 Feb, 2014 [facility] [address] [id number] [address] [place] [address], [place] [address] Jan, [facility] [address] [id number] [address] [place] [address], [place] [address] Jan, [facility] [address] [id number] [address] [place] [address], [place] [address] Jan, [facility] [address] [id number] [address] [place] [address], [place] [address] Jan, [facility] [address] [id number] [address] [place] [address], [place] [address] Jan, [facility] [address] [id number] [address] [place] [address], [place] [address] Jan, [facility] [address] [id number] [address] [place] [address], [place] [address] Dec, [facility] [address] [id number] [address] [place] [address], [place] [address] Dec, [facility] [address] [id number] [address] [place] [address], [place] [address] Nov, [facility] [address] [id number] [address] [place] [address], [place] [address] Nov, [facility] [address] [id number] [address] [place] [address], [place] [address] Nov, [facility] [address] [id number] [address] [place] [address], [place] [address] Nov, [facility] [address] [id number] [address] [place] [address], [place] [address] Nov, [facility] [address] [id number] [address] [place] [address], [place] [address] Nov, [facility] [address] [id number] [address] [place] [address], [place] [address] Nov, [facility] [address] [id number] [address] [place] [address], [place] [address] October, [facility] [address] [id number] [address] [place] [address], [place] [address] October, [facility] [address] [id number] [address] [place] [address], [place] [address] Sep, [facility] [address] [id number] [address] [place] [address], [place] [address] Sep, [facility] [address] [id number] [address] [place] [address], [place] [address] Sep, [facility] [address] [id number] [address] [place] [address], [place] [address] Sep, [facility] [address] [id number] [facility] [place] [address] 17 Sep, 2013 [facility] [address] [id number] [address] [place] [address], [place] [address] Sep, [facility] [address] [id number] [address] [place] [address], [place] [address] Sep, [facility] [address] [id number] [address] [place] [address], [place] [address] Sep, [facility] [address] [id number] [address] [place] [address], [place] [address] Sep, [facility] [address] [id number] [address] [place] [address], [place] [address] Sep, [facility] [address] [id number] [address] [place] [address], [place] [address] Sep, [facility] [address] [id number] [address] [place] [address], [place] [address] Sep, [facility] [address] [id number] [address] [place] [address], [place] [address] Sep, [facility] [address] [id number] [address] [place] [address], [place] [address] Sep, [facility] [address] [id number] [address] [place] [address], [place] [address] Sep, [facility] [address] [id number] [address] [place] [address], [place] [address] Aug, [facility] [address] [id number] [address] [place] [address], [place] [address] Aug, [facility] [address] [id number] [address] [place] [address], [place] [address] Aug, [facility] [address] [id number] [address] [place] [address], [place] [address] Aug, [facility] [address] [id number] [address] [place] [address], [place] [address] Aug, [facility] [address] [id number] [address] [place] [address], [place] [address] Aug, [facility] [address] [id number] [address] [place] [address], [place] [address] Aug, [facility] [address] [id number] [address] [place] [address], [place] [address] Aug, [facility] [address] [id number] [address] [place] [address], [place] [address] Aug, [facility] [address] [id number] [address] [place] [address], [place] [address] Aug, [facility] [address] [id number] [address] [place] [address], [place] [address] Jun, [facility] [address] [id number] [address] [place] [address], [place] [address] Jun, [facility] [address] [id number] [address] [place] [address], [place] [address] Jun, [facility] [address] [id number] [address] [place] [address], [place] [address] Jun, [facility] [address] [id number] [address] [place] [address], [place] [address] Jun, [facility] [address] [id number] [address] [place] [address], [place] [address] Jun, [facility] [address] [id number] [address] [place] [address], [place] [address] Jun, [facility] [address] [id number] [address] [place] [address], [place] [address] Jun, [facility] [address] [id number] [address] [place] [address], [place] [address] Jun, [facility] [address] [id number] [address] [place] [address], [place] [address] Jun, [facility] [address] [id number] [facility] [place] [address] Jun, [facility] [address] [id number] [facility] [place] [address] Jun, [facility] [address] [id number] [facility] [place] [address] Apr, [facility] [address] [id number] [address] [place] [address], [place] [address] Apr, [facility] [address] [id number] [address] [place] [address], [place] [address] Jan, [facility] [address] [id number] [address] [place] [address], [place] [address] Jan, [facility] [address] [id number] [address] [place] [address], [place] [address] Jan, [facility] [address] [id number] [address] [place] [address], [place] [address] Jan, [facility] [address] [id number] [address] [place] [address], [place] [address] Jan, [facility] [address] [id number] [address] [place] [address], [place] [address] Jan, [facility] [address] [id number] [address] [place] [address], [place] [address] Jan, [facility] [address] [place] [id number] Jan, [facility] [address] [id number] [address] [place] [address], [place] [address] Dec, [facility] [address] [id number] [address] [place] [address], [place] [address] Dec, [facility] [address] [id number] [address] [place] [address], [place] [address] Dec, [facility] [address] [id number] [address] [place] [address], [place] [address] Dec, [facility] [address] [facility] [id number] [address] [place] [address] Dec, [facility] [address] [facility] [id number] [address] [place] [address] Dec, [facility] [address] [facility] [id number] [address] [place] [address] Dec, [facility] [address] [facility] [id number] [address] [place] [address] Nov, [facility] [address] [facility] [id number] [address] [place] [address] Nov, IMMUNIZATIONS No Known Immunizations SOCIAL HISTORY Never Assessed REASON FOR VISIT PLAN OF CARE VITAL SIGNS MEDICATIONS Unknown Medications RESULTS No Results PROCEDURES No Known procedures INSTRUCTIONS MEDICATIONS ADMINISTERED No Known Medications
--- OUTSIDE RECORDS SUMMARY | 2019-07-25 20:24 | XMS REPORT ---
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 Active Problem Suicide and self-inflicted p oisoning by unspecified drug or medicinal substance E950.5 Active Problem Other dyspnea and respiratory abnormalities 786.09 Active 053883739 Problem Dysuria 788.1 Active 01072362 Problem Congestive heart failure, unspecified 428.0 Active 91317125 Problem Other screening breast examination V76.19 Active 55998770 Problem Unspecified hypotension 458.9 Active 87787229 Problem Other specified disorders of bladder 596.89 Active 29946125 Problem Encounter for long-term (current) use of other medications V58.69 Active 874985803 Problem Counseling on substance use and abuse V65.42 Active 989451630 Problem Unspecified myalgia and myositis 729.1 Active 380203889 Problem Pain in soft tissues of limb 729.5 A ctive 99722338 Problem Urinary tract infection, site not specified 599.0 Active 83900080 Problem Pain in joint, lower leg 719.46 Activ e 337722194 Problem Chronic airway obstruction, not elsewhere classified 496 Active 97932519 Problem Neurogenic bladder, NOS 596.54 Active 731508286 Problem Acute sinusitis, unspecified 461.9 A ctive 25074692 Problem Personal history of pulmonary embolism V12.55 Active 888636333 Problem Acute bronchitis 466.0 Active 105 05507 Problem Unspecified hearing loss 389.9 Activ e 98352610 Problem Unspecified otalgia 388.70 Active 21796589 Problem Unspecified hereditary and idiopathic peripheral neuropath y 356.9 Active 973771049 Problem Other and unspecified hyperlipidemia 272.4 Active 68130531 Problem Altered mental status 780.97 Active 317284963 Problem Diabetes mellitus without me ntion of complication, type II or unspecified type, not stated as uncontrolled 250.00 Active 380199376 Problem Shortness of breath 786.05 Active 885220271 Problem Other malaise and fatigue 780.79 Acti ve 113121809 Problem Other chronic pain 338.29 Active 8 9621878 Problem Nondependent tobacco use disorder 305.1 Active 088708455 Problem Amphetamine and other psychostimulant de pendence, 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 Active Problem Obesity, unspecified 278.00 Active 161405732 ALLERGIES No Information ENCOUNTERS Encounter Location Date Diagnosis [facility] [address] [facility] [id number] [address] [place] [address] Sep, [facility] [address] [facility] [id number] [address] [place] [address] Sep, [facility] [address] [facility] [id number] [address] [place] [address] Aug, [facility] [address] [facility] [id number] [address] [place] [address] Aug, [facility] [address] [place] [id number] [address] [place] [address] Aug, [facility] [address] [facility] [id number] [address] [place] [address] Aug, [facility] [address] [facility] [id number] [address] [place] [address] Aug, [facility] [address] [facility] [id number] [address] [place] [address] Aug, [facility] [address] [facility] [id number] [address] [place] [address] Jul, [facility] [address] [facility] [id number] [address] [place] [address] Jul, [facility] [address] [place] [id number] [address] [place] [address] Jul, [facility] [address] [id number] [address] [place] [address], [place] [address] Jul, [facility] [address] [id number] [address] [place] [address], [place] [address] Jul, 2014 [facility] [address] [id number] [address] [place] [address], [place] [address] Jul, 2014 [facility] [address] [id number] [address] [place] [address], [place] [address] Jul, [facility] [address] [id number] [address] [place] [address], [place] [address] Jul, [facility] [address] [id number] [address] [place] [address], [place] [address] Jul, [facility] [address] [id number] [address] [place] [address], [place] [address] Jun, [facility] [address] [id number] [address] [place] [address], [place] [address] Jun, [facility] [address] [id number] [address] [place] [address], [place] [address] Jun, [facility] [address] [id number] [address] [place] [address], [place] [address] Jun, [facility] [address] [id number] [address] [place] [address], [place] [address] Jun, [facility] [address] [id number] [address] [place] [address] Jun, [facility] [address] [id number] [address] [place] [address] Jun, [facility] [address] [id number] [address] [place] [address] Jun, [facility] [address] [id number] [address] [place] [address] Jun, [facility] [address] [id number] [address] [place] [address], [place] [address] Jun, [facility] [address] [id number] [address] [place] [address], [place] [address] May, [facility] [address] [id number] [address] [place] [address], [place] [address] May, [facility] [address] [id number] [address] [place] [address], [place] [address] May, [facility] [address] [id number] [address] [place] [address], [place] [address] May, [facility] [address] [id number] [address] [place] [address], [place] [address] May, [facility] [address] [id number] [address] [place] [address], [place] [address] May, [facility] [address] [id number] [address] [place] [address], [place] [address] May, [facility] [address] [id number] [address] [place] [address], [place] [address] May, [facility] [address] [id number] [address] [place] [address], [place] [address] May, [facility] [address] [id number] [address] [place] [address], [place] [address] 15 May, 2014 [facility] [address] [id number] [address] [place] [address], [place] [address] 15 May, 2014 [facility] [address] [id number] [address] [place] [address], [place] [address] Apr, [facility] [address] [id number] [address] [place] [address], [place] [address] Apr, [facility] [address] [id number] [address] [place] [address], [place] [address] 17 Apr, 2014 [facility] [address] [id number] [address] [place] [address], [place] [address] Apr, [facility] [address] [id number] [address] [place] [address], [place] [address] Mar, [facility] [address] [id number] [address] [place] [address], [place] [address] Mar, [facility] [address] [id number] [address] [place] [address], [place] [address] Mar, [facility] [address] [id number] [address] [place] [address], [place] [address] Mar, [facility] [address] [id number] [address] [place] [address], [place] [address] Feb, [facility] [address] [id number] [address] [place] [address], [place] [address] Feb, [facility] [address] [id number] [address] [place] [address], [place] [address] Feb, [facility] [address] [id number] [address] [place] [address], [place] [address] Feb, [facility] [address] [id number] [address] [place] [address], [place] [address] 16 Feb, 2014 [facility] [address] [id number] [address] [place] [address], [place] [address] 16 Feb, 2014 [facility] [address] [id number] [address] [place] [address], [place] [address] Jan, [facility] [address] [id number] [address] [place] [address], [place] [address] Jan, [facility] [address] [id number] [address] [place] [address], [place] [address] Jan, [facility] [address] [id number] [address] [place] [address], [place] [address] Jan, [facility] [address] [id number] [address] [place] [address], [place] [address] Jan, [facility] [address] [id number] [address] [place] [address], [place] [address] Jan, [facility] [address] [id number] [address] [place] [address], [place] [address] Dec, [facility] [address] [id number] [address] [place] [address], [place] [address] Dec, [facility] [address] [id number] [address] [place] [address], [place] [address] Nov, [facility] [address] [id number] [address] [place] [address], [place] [address] Nov, [facility] [address] [id number] [address] [place] [address], [place] [address] Nov, [facility] [address] [id number] [address] [place] [address], [place] [address] Nov, [facility] [address] [id number] [address] [place] [address], [place] [address] Nov, [facility] [address] [id number] [address] [place] [address], [place] [address] Nov, [facility] [address] [id number] [address] [place] [address], [place] [address] Nov, [facility] [address] [id number] [address] [place] [address], [place] [address] October, [facility] [address] [id number] [address] [place] [address], [place] [address] October, [facility] [address] [id number] [address] [place] [address], [place] [address] Sep, [facility] [address] [id number] [address] [place] [address], [place] [address] Sep, [facility] [address] [id number] [address] [place] [address], [place] [address] Sep, [facility] [address] [id number] [address] [place] [address], [place] [address] Sep, [facility] [address] [id number] [facility] [address] 17 Sep, 2013 [facility] [address] [id number] [address] [place] [address], [place] [address] Sep, [facility] [address] [id number] [address] [place] [address], [place] [address] Sep, [facility] [address] [id number] [address] [place] [address], [place] [address] Sep, [facility] [address] [id number] [address] [place] [address], [place] [address] Sep, [facility] [address] [id number] [address] [place] [address], [place] [address] Sep, [facility] [address] [id number] [address] [place] [address], [place] [address] Sep, [facility] [address] [id number] [address] [place] [address], [place] [address] Sep, [facility] [address] [id number] [address] [place] [address], [place] [address] Sep, [facility] [address] [id number] [address] [place] [address], [place] [address] Sep, [facility] [address] [id number] [address] [place] [address], [place] [address] Sep, [facility] [address] [id number] [address] [place] [address], [place] [address] Aug, [facility] [address] [id number] [address] [place] [address], [place] [address] Aug, [facility] [address] [id number] [address] [place] [address], [place] [address] Aug, [facility] [address] [id number] [address] [place] [address], [place] [address] Aug, [facility] [address] [id number] [address] [place] [address], [place] [address] Aug, [facility] [address] [id number] [address] [place] [address], [place] [address] Aug, [facility] [address] [id number] [address] [place] [address], [place] [address] Aug, [facility] [address] [id number] [address] [place] [address], [place] [address] Aug, [facility] [address] [id number] [address] [place] [address], [place] [address] Aug, [facility] [address] [id number] [address] [place] [address], [place] [address] Aug, [facility] [address] [id number] [address] [place] [address], [place] [address] Jun, [facility] [address] [id number] [address] [place] [address], [place] [address] Jun, [facility] [address] [id number] [address] [place] [address], [place] [address] Jun, [facility] [address] [id number] [address] [place] [address], [place] [address] Jun, [facility] [address] [id number] [address] [place] [address], [place] [address] Jun, [facility] [address] [id number] [address] [place] [address], [place] [address] Jun, [facility] [address] [id number] [address] [place] [address], [place] [address] Jun, [facility] [address] [id number] [address] [place] [address], [place] [address] Jun, [facility] [address] [id number] [address] [place] [address], [place] [address] Jun, [facility] [address] [id number] [address] [place] [address], [place] [address] Jun, [facility] [address] [id number] [facility] [place] [address] Jun, [facility] [address] [id number] [facility] [place] [address] Jun, [facility] [address] [id number] [facility] [place] [address] Apr, [facility] [address] [id number] [address] [place] [address], [place] [address] Apr, [facility] [address] [id number] [address] [place] [address], [place] [address] Jan, [facility] [address] [id number] [address] [place] [address], [place] [address] Jan, [facility] [address] [id number] [address] [place] [address], [place] [address] Jan, [facility] [address] [id number] [address] [place] [address], [place] [address] Jan, [facility] [address] [id number] [address] [place] [address], [place] [address] Jan, [facility] [address] [id number] [address] [place] [address], [place] [address] Jan, [facility] [address] [id number] [address] [place] [address], [place] [address] Jan, [facility] [address] [place] [id number] Jan, [facility] [address] [id number] [address] [place] [address], [place] [address] Dec, [facility] [address] [id number] [address] [place] [address], [place] [address] Dec, [facility] [address] [id number] [address] [place] [address], [place] [address] Dec, [facility] [address] [id number] [address] [place] [address], [place] [address] Dec, [facility] [address] [facility] [id number] [address] [place] [address] Dec, [facility] [address] [facility] [id number] [address] [place] [address] Dec, [facility] [address] [facility] [id number] [address] [place] [address] Dec, [facility] [address] [facility] [id number] [address] [place] [address] Nov, [facility] [address] [facility] [id number] [address] [place] [address] Nov, IMMUNIZATIONS No Known Immunizations SOCIAL HISTORY Never Assessed REASON FOR VISIT PLAN OF CARE VITAL SIGNS MEDICATIONS Unknown Medications RESULTS No Results PROCEDURES No Known procedures INSTRUCTIONS MEDICATIONS ADMINISTERED No Known Medications
--- OUTSIDE RECORDS SUMMARY | 2019-07-25 20:24 | XMS REPORT ---
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 Active Problem Suicide and self-inflicted p oisoning by unspecified drug or medicinal substance E950.5 Active Problem Other dyspnea and respiratory abnormalities 786.09 Active 400128581 Problem Dysuria 788.1 Active 64763833 Problem Congestive heart failure, unspecified 428.0 Active 91927198 Problem Other screening breast examination V76.19 Active 35571304 Problem Unspecified hypotension 458.9 Active 22151817 Problem Other specified disorders of bladder 596.89 Active 17650591 Problem Encounter for long-term (current) use of other medications V58.69 Active 781644892 Problem Counseling on substance use and abuse V65.42 Active 790747738 Problem Unspecified myalgia and myositis 729.1 Active 389049997 Problem Pain in soft tissues of limb 729.5 A ctive 39080329 Problem Urinary tract infection, site not specified 599.0 Active 85531636 Problem Pain in joint, lower leg 719.46 Activ e 328553632 Problem Chronic airway obstruction, not elsewhere classified 496 Active 17340061 Problem Neurogenic bladder, NOS 596.54 Active 065488263 Problem Acute sinusitis, unspecified 461.9 A ctive 22237803 Problem Personal history of pulmonary embolism V12.55 Active 257198012 Problem Acute bronchitis 466.0 Active 105 37806 Problem Unspecified hearing loss 389.9 Activ e 71231229 Problem Unspecified otalgia 388.70 Active 99367595 Problem Unspecified hereditary and idiopathic peripheral neuropath y 356.9 Active 340300163 Problem Other and unspecified hyperlipidemia 272.4 Active 05178016 Problem Altered mental status 780.97 Active 189031799 Problem Diabetes mellitus without me ntion of complication, type II or unspecified type, not stated as uncontrolled 250.00 Active 912582228 Problem Shortness of breath 786.05 Active 379293119 Problem Other malaise and fatigue 780.79 Acti ve 852874185 Problem Other chronic pain 338.29 Active 8 3272004 Problem Nondependent tobacco use disorder 305.1 Active 598581162 Problem Amphetamine and other psychostimulant de pendence, 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 Active Problem Obesity, unspecified 278.00 Active 016225499 ALLERGIES No Information ENCOUNTERS Encounter Location Date Diagnosis [facility] [place] [address] [facility] [id number] [address] [place] [address] Sep, [facility] [place] [address] [facility] [id number] [address] [place] [address] Sep, [facility] [place] [address] [facility] [id number] [address] [place] [address] Aug, [facility] [place] [address] [facility] [id number] [address] [place] [address] Aug, [facility] [place] [address] [place] [id number] [address] [place] [address] Aug, [facility] [place] [address] [facility] [id number] [address] [place] [address] Aug, [facility] [place] [address] [facility] [id number] [address] [place] [address] Aug, [facility] [place] [address] [facility] [id number] [address] [place] [address] Aug, [facility] [place] [address] [facility] [id number] [address] [place] [address] Jul, [facility] [place] [address] [facility] [id number] [address] [place] [address] Jul, [facility] [place] [address] [place] [id number] [address] [place] [address] Jul, [facility] [address] [id number] [address] [place] [address], [place] [address] Jul, [facility] [address] [id number] [address] [place] [address], [place] [address] Jul, 2014 [facility] [address] [id number] [address] [place] [address], [place] [address] Jul, 2014 [facility] [address] [id number] [address] [place] [address], [place] [address] Jul, [facility] [address] [id number] [address] [place] [address], [place] [address] Jul, [facility] [address] [id number] [address] [place] [address], [place] [address] Jul, [facility] [address] [id number] [address] [place] [address], [place] [address] Jun, [facility] [address] [id number] [address] [place] [address], [place] [address] Jun, [facility] [address] [id number] [address] [place] [address], [place] [address] Jun, [facility] [address] [id number] [address] [place] [address], [place] [address] Jun, [facility] [address] [id number] [address] [place] [address], [place] [address] Jun, [facility] [address] [id number] [address] [place] [address] Jun, [facility] [address] [id number] [address] [place] [address] Jun, [facility] [address] [id number] [address] [place] [address] Jun, [facility] [address] [id number] [address] [place] [address] Jun, [facility] [address] [id number] [address] [place] [address], [place] [address] Jun, [facility] [address] [id number] [address] [place] [address], [place] [address] May, [facility] [address] [id number] [address] [place] [address], [place] [address] May, [facility] [address] [id number] [address] [place] [address], [place] [address] May, [facility] [address] [id number] [address] [place] [address], [place] [address] May, [facility] [address] [id number] [address] [place] [address], [place] [address] May, [facility] [address] [id number] [address] [place] [address], [place] [address] May, [facility] [address] [id number] [address] [place] [address], [place] [address] May, [facility] [address] [id number] [address] [place] [address], [place] [address] May, [facility] [address] [id number] [address] [place] [address], [place] [address] May, [facility] [address] [id number] [address] [place] [address], [place] [address] 15 May, 2014 [facility] [address] [id number] [address] [place] [address], [place] [address] 15 May, 2014 [facility] [address] [id number] [address] [place] [address], [place] [address] Apr, [facility] [address] [id number] [address] [place] [address], [place] [address] Apr, [facility] [address] [id number] [address] [place] [address], [place] [address] 17 Apr, 2014 [facility] [address] [id number] [address] [place] [address], [place] [address] Apr, [facility] [address] [id number] [address] [place] [address], [place] [address] Mar, [facility] [address] [id number] [address] [place] [address], [place] [address] Mar, [facility] [address] [id number] [address] [place] [address], [place] [address] Mar, [facility] [address] [id number] [address] [place] [address], [place] [address] Mar, [facility] [address] [id number] [address] [place] [address], [place] [address] Feb, [facility] [address] [id number] [address] [place] [address], [place] [address] Feb, [facility] [address] [id number] [address] [place] [address], [place] [address] Feb, [facility] [address] [id number] [address] [place] [address], [place] [address] Feb, [facility] [address] [id number] [address] [place] [address], [place] [address] 16 Feb, 2014 [facility] [address] [id number] [address] [place] [address], [place] [address] 16 Feb, 2014 [facility] [address] [id number] [address] [place] [address], [place] [address] Jan, [facility] [address] [id number] [address] [place] [address], [place] [address] Jan, [facility] [address] [id number] [address] [place] [address], [place] [address] Jan, [facility] [address] [id number] [address] [place] [address], [place] [address] Jan, [facility] [address] [id number] [address] [place] [address], [place] [address] Jan, [facility] [address] [id number] [address] [place] [address], [place] [address] Jan, [facility] [address] [id number] [address] [place] [address], [place] [address] Dec, [facility] [address] [id number] [address] [place] [address], [place] [address] Dec, [facility] [address] [id number] [address] [place] [address], [place] [address] Nov, [facility] [address] [id number] [address] [place] [address], [place] [address] Nov, [facility] [address] [id number] [address] [place] [address], [place] [address] Nov, [facility] [address] [id number] [address] [place] [address], [place] [address] Nov, [facility] [address] [id number] [address] [place] [address], [place] [address] Nov, [facility] [address] [id number] [address] [place] [address], [place] [address] Nov, [facility] [address] [id number] [address] [place] [address], [place] [address] Nov, [facility] [address] [id number] [address] [place] [address], [place] [address] October, [facility] [address] [id number] [address] [place] [address], [place] [address] October, [facility] [address] [id number] [address] [place] [address], [place] [address] Sep, [facility] [address] [id number] [address] [place] [address], [place] [address] Sep, [facility] [address] [id number] [address] [place] [address], [place] [address] Sep, [facility] [address] [id number] [address] [place] [address], [place] [address] Sep, [facility] [address] [id number] [facility] [address] 17 Sep, 2013 [facility] [address] [id number] [address] [place] [address], [place] [address] Sep, [facility] [address] [id number] [address] [place] [address], [place] [address] Sep, [facility] [address] [id number] [address] [place] [address], [place] [address] Sep, [facility] [address] [id number] [address] [place] [address], [place] [address] Sep, [facility] [address] [id number] [address] [place] [address], [place] [address] Sep, [facility] [address] [id number] [address] [place] [address], [place] [address] Sep, [facility] [address] [id number] [address] [place] [address], [place] [address] Sep, [facility] [address] [id number] [address] [place] [address], [place] [address] Sep, [facility] [address] [id number] [address] [place] [address], [place] [address] Sep, [facility] [address] [id number] [address] [place] [address], [place] [address] Sep, [facility] [address] [id number] [address] [place] [address], [place] [address] Aug, [facility] [address] [id number] [address] [place] [address], [place] [address] Aug, [facility] [address] [id number] [address] [place] [address], [place] [address] Aug, [facility] [address] [id number] [address] [place] [address], [place] [address] Aug, [facility] [address] [id number] [address] [place] [address], [place] [address] Aug, [facility] [address] [id number] [address] [place] [address], [place] [address] Aug, [facility] [address] [id number] [address] [place] [address], [place] [address] Aug, [facility] [address] [id number] [address] [place] [address], [place] [address] Aug, [facility] [address] [id number] [address] [place] [address], [place] [address] Aug, [facility] [address] [id number] [address] [place] [address], [place] [address] Aug, [facility] [address] [id number] [address] [place] [address], [place] [address] Jun, [facility] [address] [id number] [address] [place] [address], [place] [address] Jun, [facility] [address] [id number] [address] [place] [address], [place] [address] Jun, [facility] [address] [id number] [address] [place] [address], [place] [address] Jun, [facility] [address] [id number] [address] [place] [address], [place] [address] Jun, [facility] [address] [id number] [address] [place] [address], [place] [address] Jun, [facility] [address] [id number] [address] [place] [address], [place] [address] Jun, [facility] [address] [id number] [address] [place] [address], [place] [address] Jun, [facility] [address] [id number] [address] [place] [address], [place] [address] Jun, [facility] [address] [id number] [address] [place] [address], [place] [address] Jun, [facility] [address] [id number] [facility] [place] [address] Jun, [facility] [address] [id number] [facility] [place] [address] Jun, [facility] [address] [id number] [facility] [place] [address] Apr, [facility] [address] [id number] [address] [place] [address], [place] [address] Apr, [facility] [address] [id number] [address] [place] [address], [place] [address] Jan, [facility] [address] [id number] [address] [place] [address], [place] [address] Jan, [facility] [address] [id number] [address] [place] [address], [place] [address] Jan, [facility] [address] [id number] [address] [place] [address], [place] [address] Jan, [facility] [address] [id number] [address] [place] [address], [place] [address] Jan, [facility] [address] [id number] [address] [place] [address], [place] [address] Jan, [facility] [address] [id number] [address] [place] [address], [place] [address] Jan, [facility] [address] [place] [id number] Jan, [facility] [address] [id number] [address] [place] [address], [place] [address] Dec, [facility] [address] [id number] [address] [place] [address], [place] [address] Dec, [facility] [address] [id number] [address] [place] [address], [place] [address] Dec, [facility] [address] [id number] [address] [place] [address], [place] [address] Dec, [facility] [place] [address] [facility] [id number] [address] [place] [address] Dec, [facility] [place] [address] [facility] [id number] [address] [place] [address] Dec, [facility] [place] [address] [facility] [id number] [address] [place] [address] Dec, [facility] [place] [address] [facility] [id number] [address] [place] [address] Nov, [facility] [place] [address] [facility] [id number] [address] [place] [address] Nov, IMMUNIZATIONS No Known Immunizations SOCIAL HISTORY Never Assessed REASON FOR VISIT PLAN OF CARE VITAL SIGNS MEDICATIONS Unknown Medications RESULTS No Results PROCEDURES No Known procedures INSTRUCTIONS MEDICATIONS ADMINISTERED No Known Medications
--- OUTSIDE RECORDS SUMMARY | 2019-07-25 20:24 | XMS REPORT ---
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 Active Problem Suicide and self-inflicted p oisoning by unspecified drug or medicinal substance E950.5 Active Problem Other dyspnea and respiratory abnormalities 786.09 Active 074031609 Problem Dysuria 788.1 Active 14488418 Problem Congestive heart failure, unspecified 428.0 Active 69759288 Problem Other screening breast examination V76.19 Active 66711505 Problem Unspecified hypotension 458.9 Active 00117116 Problem Other specified disorders of bladder 596.89 Active 93345512 Problem Encounter for long-term (current) use of other medications V58.69 Active 701880695 Problem Counseling on substance use and abuse V65.42 Active 417332322 Problem Unspecified myalgia and myositis 729.1 Active 483190349 Problem Pain in soft tissues of limb 729.5 A ctive 22266274 Problem Urinary tract infection, site not specified 599.0 Active 28312829 Problem Pain in joint, lower leg 719.46 Activ e 448403441 Problem Chronic airway obstruction, not elsewhere classified 496 Active 07076887 Problem Neurogenic bladder, NOS 596.54 Active 042417341 Problem Acute sinusitis, unspecified 461.9 A ctive 01845065 Problem Personal history of pulmonary embolism V12.55 Active 061693627 Problem Acute bronchitis 466.0 Active 105 60105 Problem Unspecified hearing loss 389.9 Activ e 77883977 Problem Unspecified otalgia 388.70 Active 54699610 Problem Unspecified hereditary and idiopathic peripheral neuropath y 356.9 Active 817639086 Problem Other and unspecified hyperlipidemia 272.4 Active 15141548 Problem Altered mental status 780.97 Active 195721305 Problem Diabetes mellitus without me ntion of complication, type II or unspecified type, not stated as uncontrolled 250.00 Active 870160378 Problem Shortness of breath 786.05 Active 874288016 Problem Other malaise and fatigue 780.79 Acti ve 365342101 Problem Other chronic pain 338.29 Active 8 6645374 Problem Nondependent tobacco use disorder 305.1 Active 880380666 Problem Amphetamine and other psychostimulant de pendence, 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 Active Problem Obesity, unspecified 278.00 Active 571334503 ALLERGIES No Information ENCOUNTERS Encounter Location Date Diagnosis [facility] [address] [facility] [id number] [address] [place] [address] Sep, [facility] [address] [facility] [id number] [address] [place] [address] Sep, [facility] [address] [facility] [id number] [address] [place] [address] Aug, [facility] [address] [facility] [id number] [address] [place] [address] Aug, [facility] [address] [place] [id number] [address] [place] [address] Aug, [facility] [address] [facility] [id number] [address] [place] [address] Aug, [facility] [address] [facility] [id number] [address] [place] [address] Aug, [facility] [address] [facility] [id number] [address] [place] [address] Aug, [facility] [address] [facility] [id number] [address] [place] [address] Jul, [facility] [address] [facility] [id number] [address] [place] [address] Jul, [facility] [address] [place] [id number] [address] [place] [address] Jul, [facility] [address] [id number] [address] [place] [address], [place] [address] Jul, [facility] [address] [id number] [address] [place] [address], [place] [address] Jul, 2014 [facility] [address] [id number] [address] [place] [address], [place] [address] Jul, 2014 [facility] [address] [id number] [address] [place] [address], [place] [address] Jul, [facility] [address] [id number] [address] [place] [address], [place] [address] Jul, [facility] [address] [id number] [address] [place] [address], [place] [address] Jul, [facility] [address] [id number] [address] [place] [address], [place] [address] Jun, [facility] [address] [id number] [address] [place] [address], [place] [address] Jun, [facility] [address] [id number] [address] [place] [address], [place] [address] Jun, [facility] [address] [id number] [address] [place] [address], [place] [address] Jun, [facility] [address] [id number] [address] [place] [address], [place] [address] Jun, [facility] [address] [id number] [address] [place] [address] Jun, [facility] [address] [id number] [address] [place] [address] Jun, [facility] [address] [id number] [address] [place] [address] Jun, [facility] [address] [id number] [address] [place] [address] Jun, [facility] [address] [id number] [address] [place] [address], [place] [address] Jun, [facility] [address] [id number] [address] [place] [address], [place] [address] May, [facility] [address] [id number] [address] [place] [address], [place] [address] May, [facility] [address] [id number] [address] [place] [address], [place] [address] May, [facility] [address] [id number] [address] [place] [address], [place] [address] May, [facility] [address] [id number] [address] [place] [address], [place] [address] May, [facility] [address] [id number] [address] [place] [address], [place] [address] May, [facility] [address] [id number] [address] [place] [address], [place] [address] May, [facility] [address] [id number] [address] [place] [address], [place] [address] May, [facility] [address] [id number] [address] [place] [address], [place] [address] May, [facility] [address] [id number] [address] [place] [address], [place] [address] 15 May, 2014 [facility] [address] [id number] [address] [place] [address], [place] [address] 15 May, 2014 [facility] [address] [id number] [address] [place] [address], [place] [address] Apr, [facility] [address] [id number] [address] [place] [address], [place] [address] Apr, [facility] [address] [id number] [address] [place] [address], [place] [address] 17 Apr, 2014 [facility] [address] [id number] [address] [place] [address], [place] [address] Apr, [facility] [address] [id number] [address] [place] [address], [place] [address] Mar, [facility] [address] [id number] [address] [place] [address], [place] [address] Mar, [facility] [address] [id number] [address] [place] [address], [place] [address] Mar, [facility] [address] [id number] [address] [place] [address], [place] [address] Mar, [facility] [address] [id number] [address] [place] [address], [place] [address] Feb, [facility] [address] [id number] [address] [place] [address], [place] [address] Feb, [facility] [address] [id number] [address] [place] [address], [place] [address] Feb, [facility] [address] [id number] [address] [place] [address], [place] [address] Feb, [facility] [address] [id number] [address] [place] [address], [place] [address] 16 Feb, 2014 [facility] [address] [id number] [address] [place] [address], [place] [address] 16 Feb, 2014 [facility] [address] [id number] [address] [place] [address], [place] [address] Jan, [facility] [address] [id number] [address] [place] [address], [place] [address] Jan, [facility] [address] [id number] [address] [place] [address], [place] [address] Jan, [facility] [address] [id number] [address] [place] [address], [place] [address] Jan, [facility] [address] [id number] [address] [place] [address], [place] [address] Jan, [facility] [address] [id number] [address] [place] [address], [place] [address] Jan, [facility] [address] [id number] [address] [place] [address], [place] [address] Dec, [facility] [address] [id number] [address] [place] [address], [place] [address] Dec, [facility] [address] [id number] [address] [place] [address], [place] [address] Nov, [facility] [address] [id number] [address] [place] [address], [place] [address] Nov, [facility] [address] [id number] [address] [place] [address], [place] [address] Nov, [facility] [address] [id number] [address] [place] [address], [place] [address] Nov, [facility] [address] [id number] [address] [place] [address], [place] [address] Nov, [facility] [address] [id number] [address] [place] [address], [place] [address] Nov, [facility] [address] [id number] [address] [place] [address], [place] [address] Nov, [facility] [address] [id number] [address] [place] [address], [place] [address] October, [facility] [address] [id number] [address] [place] [address], [place] [address] October, [facility] [address] [id number] [address] [place] [address], [place] [address] Sep, [facility] [address] [id number] [address] [place] [address], [place] [address] Sep, [facility] [address] [id number] [address] [place] [address], [place] [address] Sep, [facility] [address] [id number] [address] [place] [address], [place] [address] Sep, [facility] [address] [id number] [facility] [place] [address] 17 Sep, 2013 [facility] [address] [id number] [address] [place] [address], [place] [address] Sep, [facility] [address] [id number] [address] [place] [address], [place] [address] Sep, [facility] [address] [id number] [address] [place] [address], [place] [address] Sep, [facility] [address] [id number] [address] [place] [address], [place] [address] Sep, [facility] [address] [id number] [address] [place] [address], [place] [address] Sep, [facility] [address] [id number] [address] [place] [address], [place] [address] Sep, [facility] [address] [id number] [address] [place] [address], [place] [address] Sep, [facility] [address] [id number] [address] [place] [address], [place] [address] Sep, [facility] [address] [id number] [address] [place] [address], [place] [address] Sep, [facility] [address] [id number] [address] [place] [address], [place] [address] Sep, [facility] [address] [id number] [address] [place] [address], [place] [address] Aug, [facility] [address] [id number] [address] [place] [address], [place] [address] Aug, [facility] [address] [id number] [address] [place] [address], [place] [address] Aug, [facility] [address] [id number] [address] [place] [address], [place] [address] Aug, [facility] [address] [id number] [address] [place] [address], [place] [address] Aug, [facility] [address] [id number] [address] [place] [address], [place] [address] Aug, [facility] [address] [id number] [address] [place] [address], [place] [address] Aug, [facility] [address] [id number] [address] [place] [address], [place] [address] Aug, [facility] [address] [id number] [address] [place] [address], [place] [address] Aug, [facility] [address] [id number] [address] [place] [address], [place] [address] Aug, [facility] [address] [id number] [address] [place] [address], [place] [address] Jun, [facility] [address] [id number] [address] [place] [address], [place] [address] Jun, [facility] [address] [id number] [address] [place] [address], [place] [address] Jun, [facility] [address] [id number] [address] [place] [address], [place] [address] Jun, [facility] [address] [id number] [address] [place] [address], [place] [address] Jun, [facility] [address] [id number] [address] [place] [address], [place] [address] Jun, [facility] [address] [id number] [address] [place] [address], [place] [address] Jun, [facility] [address] [id number] [address] [place] [address], [place] [address] Jun, [facility] [address] [id number] [address] [place] [address], [place] [address] Jun, [facility] [address] [id number] [address] [place] [address], [place] [address] Jun, [facility] [address] [id number] [facility] [place] [address] Jun, [facility] [place] [address] [id number] [facility] [place] [address] Jun, [facility] [address] [id number] [facility] [place] [address] Apr, [facility] [place] [address] [id number] [address] [place] [address], [place] [address] Apr, [facility] [address] [id number] [address] [place] [address], [place] [address] Jan, [facility] [address] [id number] [address] [place] [address], [place] [address] Jan, [facility] [address] [id number] [address] [place] [address], [place] [address] Jan, [facility] [address] [id number] [address] [place] [address], [place] [address] Jan, [facility] [address] [id number] [address] [place] [address], [place] [address] Jan, [facility] [address] [id number] [address] [place] [address], [place] [address] Jan, [facility] [address] [id number] [address] [place] [address], [place] [address] Jan, [facility] [address] [place] [id number] Jan, [facility] [address] [id number] [address] [place] [address], [place] [address] Dec, [facility] [address] [id number] [address] [place] [address], [place] [address] Dec, [facility] [address] [id number] [address] [place] [address], [place] [address] Dec, [facility] [address] [id number] [address] [place] [address], [place] [address] Dec, [facility] [address] [facility] [id number] [address] [place] [address] Dec, [facility] [address] [facility] [id number] [address] [place] [address] Dec, [facility] [address] [facility] [id number] [address] [place] [address] Dec, [facility] [address] [facility] [id number] [address] [place] [address] Nov, [facility] [address] [facility] [id number] [address] [place] [address] Nov, IMMUNIZATIONS No Known Immunizations SOCIAL HISTORY Never Assessed REASON FOR VISIT PLAN OF CARE VITAL SIGNS MEDICATIONS Unknown Medications RESULTS No Results PROCEDURES No Known procedures INSTRUCTIONS MEDICATIONS ADMINISTERED No Known Medications
--- OUTSIDE RECORDS SUMMARY | 2019-07-25 20:24 | XMS REPORT ---
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 Active Problem Suicide and self-inflicted p oisoning by unspecified drug or medicinal substance E950.5 Active Problem Other dyspnea and respiratory abnormalities 786.09 Active 861580460 Problem Dysuria 788.1 Active 86992983 Problem Congestive heart failure, unspecified 428.0 Active 96605082 Problem Other screening breast examination V76.19 Active 54916787 Problem Unspecified hypotension 458.9 Active 73468876 Problem Other specified disorders of bladder 596.89 Active 78947252 Problem Encounter for long-term (current) use of other medications V58.69 Active 973072482 Problem Counseling on substance use and abuse V65.42 Active 316367699 Problem Unspecified myalgia and myositis 729.1 Active 265833242 Problem Pain in soft tissues of limb 729.5 A ctive 66120190 Problem Urinary tract infection, site not specified 599.0 Active 60173917 Problem Pain in joint, lower leg 719.46 Activ e 820823364 Problem Chronic airway obstruction, not elsewhere classified 496 Active 57596485 Problem Neurogenic bladder, NOS 596.54 Active 139031901 Problem Acute sinusitis, unspecified 461.9 A ctive 15727907 Problem Personal history of pulmonary embolism V12.55 Active 539057480 Problem Acute bronchitis 466.0 Active 105 75277 Problem Unspecified hearing loss 389.9 Activ e 93285909 Problem Unspecified otalgia 388.70 Active 85065570 Problem Unspecified hereditary and idiopathic peripheral neuropath y 356.9 Active 856865437 Problem Other and unspecified hyperlipidemia 272.4 Active 21413845 Problem Altered mental status 780.97 Active 679055185 Problem Diabetes mellitus without me ntion of complication, type II or unspecified type, not stated as uncontrolled 250.00 Active 390859866 Problem Shortness of breath 786.05 Active 516090538 Problem Other malaise and fatigue 780.79 Acti ve 449030979 Problem Other chronic pain 338.29 Active 8 6467409 Problem Nondependent tobacco use disorder 305.1 Active 762312531 Problem Amphetamine and other psychostimulant de pendence, 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 Active Problem Obesity, unspecified 278.00 Active 899442968 ALLERGIES No Information ENCOUNTERS Encounter Location Date Diagnosis [facility] [address] [facility] [id number] [address] [place] [id number] Sep, [facility] [address] [facility] [id number] [address] [place] [id number] Sep, [facility] [address] [facility] [id number] [address] [place] [id number] Aug, [facility] [address] [facility] [id number] [address] [place] [id number] Aug, [facility] [address] [id number] [address] [place] [id number] Aug, [facility] [address] [facility] [id number] [address] [place] [id number] Aug, [facility] [address] [facility] [id number] [address] [place] [id number] Aug, [facility] [address] [facility] [id number] [address] [place] [phone] Aug, [facility] [address] [facility] [id number] [address] [place] [id number] Jul, [facility] [address] [facility] [id number] [address] [place] [id number] Jul, [facility] [address] [id number] [address] [place] [id number] Jul, [facility] [address] [id number] [address] [place] [address], [place] [address] Jul, [facility] [address] [id number] [address] [place] [address], [place] [address] Jul, 2014 [facility] [address] [id number] [address] [place] [address], [place] [address] Jul, 2014 [facility] [address] [id number] [address] [place] [address], [place] [address] Jul, [facility] [address] [id number] [address] [place] [address], [place] [address] Jul, [facility] [address] [id number] [address] [place] [address], [place] [address] Jul, [facility] [address] [id number] [address] [place] [address], [place] [address] Jun, [facility] [address] [id number] [address] [place] [address], [place] [address] Jun, [facility] [address] [id number] [address] [place] [address], [place] [address] Jun, [facility] [address] [id number] [address] [place] [address], [place] [address] Jun, [facility] [address] [id number] [address] [place] [address], [place] [address] Jun, [facility] [address] [id number] [address] [place] [id number] Jun, [facility] [address] [id number] [address] [place] [id number] Jun, [facility] [address] [id number] [address] [place] [id number] Jun, [facility] [address] [id number] [address] [place] [phone] Jun, [facility] [address] [id number] [address] [place] [address], [place] [address] Jun, [facility] [address] [id number] [address] [place] [address], [place] [address] May, [facility] [address] [id number] [address] [place] [address], [place] [address] May, [facility] [address] [id number] [address] [place] [address], [place] [address] May, [facility] [address] [id number] [address] [place] [address], [place] [address] May, [facility] [address] [id number] [address] [place] [address], [place] [address] May, [facility] [address] [id number] [address] [place] [address], [place] [address] May, [facility] [address] [id number] [address] [place] [address], [place] [address] May, [facility] [address] [id number] [address] [place] [address], [place] [address] May, [facility] [address] [id number] [address] [place] [address], [place] [address] May, [facility] [address] [id number] [address] [place] [address], [place] [address] 15 May, 2014 [facility] [address] [id number] [address] [place] [address], [place] [address] 15 May, 2014 [facility] [address] [id number] [address] [place] [address], [place] [address] Apr, [facility] [address] [id number] [address] [place] [address], [place] [address] Apr, [facility] [address] [id number] [address] [place] [address], [place] [address] 17 Apr, 2014 [facility] [address] [id number] [address] [place] [address], [place] [address] Apr, [facility] [address] [id number] [address] [place] [address], [place] [address] Mar, [facility] [address] [id number] [address] [place] [address], [place] [address] Mar, [facility] [address] [id number] [address] [place] [address], [place] [address] Mar, [facility] [address] [id number] [address] [place] [address], [place] [address] Mar, [facility] [address] [id number] [address] [place] [address], [place] [address] Feb, [facility] [address] [id number] [address] [place] [address], [place] [address] Feb, [facility] [address] [id number] [address] [place] [address], [place] [address] Feb, [facility] [address] [id number] [address] [place] [address], [place] [address] Feb, [facility] [address] [id number] [address] [place] [address], [place] [address] 16 Feb, 2014 [facility] [address] [id number] [address] [place] [address], [place] [address] 16 Feb, 2014 [facility] [address] [id number] [address] [place] [address], [place] [address] Jan, [facility] [address] [id number] [address] [place] [address], [place] [address] Jan, [facility] [address] [id number] [address] [place] [address], [place] [address] Jan, [facility] [address] [id number] [address] [place] [address], [place] [address] Jan, [facility] [address] [id number] [address] [place] [address], [place] [address] Jan, [facility] [address] [id number] [address] [place] [address], [place] [address] Jan, [facility] [address] [id number] [address] [place] [address], [place] [address] Dec, [facility] [address] [id number] [address] [place] [address], [place] [address] Dec, [facility] [address] [id number] [address] [place] [address], [place] [address] Nov, [facility] [address] [id number] [address] [place] [address], [place] [address] Nov, [facility] [address] [id number] [address] [place] [address], [place] [address] Nov, [facility] [address] [id number] [address] [place] [address], [place] [address] Nov, [facility] [address] [id number] [address] [place] [address], [place] [address] Nov, [facility] [address] [id number] [address] [place] [address], [place] [address] Nov, [facility] [address] [id number] [address] [place] [address], [place] [address] Nov, [facility] [address] [id number] [address] [place] [address], [place] [address] October, [facility] [address] [id number] [address] [place] [address], [place] [address] October, [facility] [address] [id number] [address] [place] [address], [place] [address] Sep, [facility] [address] [id number] [address] [place] [address], [place] [address] Sep, [facility] [address] [id number] [address] [place] [address], [place] [address] Sep, [facility] [address] [id number] [address] [place] [address], [place] [address] Sep, [facility] [address] [id number] [facility] [address] 17 Sep, 2013 [facility] [address] [id number] [address] [place] [address], [place] [address] Sep, [facility] [address] [id number] [address] [place] [address], [place] [address] Sep, [facility] [address] [id number] [address] [place] [address], [place] [address] Sep, [facility] [address] [id number] [address] [place] [address], [place] [address] Sep, [facility] [address] [id number] [address] [place] [address], [place] [address] Sep, [facility] [address] [id number] [address] [place] [address], [place] [address] Sep, [facility] [address] [id number] [address] [place] [address], [place] [address] Sep, [facility] [address] [id number] [address] [place] [address], [place] [address] Sep, [facility] [address] [id number] [address] [place] [address], [place] [address] Sep, [facility] [address] [id number] [address] [place] [address], [place] [address] Sep, [facility] [address] [id number] [address] [place] [address], [place] [address] Aug, [facility] [address] [id number] [address] [place] [address], [place] [address] Aug, [facility] [address] [id number] [address] [place] [address], [place] [address] Aug, [facility] [address] [id number] [address] [place] [address], [place] [address] Aug, [facility] [address] [id number] [address] [place] [address], [place] [address] Aug, [facility] [address] [id number] [address] [place] [address], [place] [address] Aug, [facility] [address] [id number] [address] [place] [address], [place] [address] Aug, [facility] [address] [id number] [address] [place] [address], [place] [address] Aug, [facility] [address] [id number] [address] [place] [address], [place] [address] Aug, [facility] [address] [id number] [address] [place] [address], [place] [address] Aug, [facility] [address] [id number] [address] [place] [address], [place] [address] Jun, [facility] [address] [id number] [address] [place] [address], [place] [address] Jun, [facility] [address] [id number] [address] [place] [address], [place] [address] Jun, [facility] [address] [id number] [address] [place] [address], [place] [address] Jun, [facility] [address] [id number] [address] [place] [address], [place] [address] Jun, [facility] [address] [id number] [address] [place] [address], [place] [address] Jun, [facility] [address] [id number] [address] [place] [address], [place] [address] Jun, [facility] [address] [id number] [address] [place] [address], [place] [address] Jun, [facility] [address] [id number] [address] [place] [address], [place] [address] Jun, [facility] [address] [id number] [address] [place] [address], [place] [address] Jun, [facility] [address] [id number] [facility] [address] Jun, [facility] [address] [id number] [facility] [address] Jun, [facility] [address] [id number] [facility] [address] Apr, [facility] [address] [id number] [address] [place] [address], [place] [address] Apr, [facility] [address] [id number] [address] [place] [address], [place] [address] Jan, [facility] [address] [id number] [address] [place] [address], [place] [address] Jan, [facility] [address] [id number] [address] [place] [address], [place] [address] Jan, [facility] [address] [id number] [address] [place] [address], [place] [address] Jan, [facility] [address] [id number] [address] [place] [address], [place] [address] Jan, [facility] [address] [id number] [address] [place] [address], [place] [address] Jan, [facility] [address] [id number] [address] [place] [address], [place] [address] Jan, [facility] [address] [place] [id number] Jan, [facility] [address] [id number] [address] [place] [address], [place] [address] Dec, [facility] [address] [id number] [address] [place] [address], [place] [address] Dec, [facility] [address] [id number] [address] [place] [address], [place] [address] Dec, [facility] [address] [id number] [address] [place] [address], [place] [address] Dec, [facility] [address] [facility] [id number] [address] [place] [id number] Dec, [facility] [address] [facility] [id number] [address] [place] [id number] Dec, [facility] [address] [facility] [id number] [address] [place] [id number] Dec, [facility] [address] [facility] [id number] [address] [place] [id number] Nov, [facility] [address] [facility] [id number] [address] [place] [id number] Nov, IMMUNIZATIONS No Known Immunizations SOCIAL HISTORY Never Assessed REASON FOR VISIT PLAN OF CARE VITAL SIGNS MEDICATIONS Unknown Medications RESULTS No Results PROCEDURES No Known procedures INSTRUCTIONS MEDICATIONS ADMINISTERED No Known Medications
--- OUTSIDE RECORDS SUMMARY | 2019-07-25 20:25 | XMS REPORT ---
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 Active Problem Suicide and self-inflicted p oisoning by unspecified drug or medicinal substance E950.5 Active Problem Other dyspnea and respiratory abnormalities 786.09 Active 794046652 Problem Dysuria 788.1 Active 56405986 Problem Congestive heart failure, unspecified 428.0 Active 15254562 Problem Other screening breast examination V76.19 Active 46716513 Problem Unspecified hypotension 458.9 Active 49350220 Problem Other specified disorders of bladder 596.89 Active 01946647 Problem Encounter for long-term (current) use of other medications V58.69 Active 233089812 Problem Counseling on substance use and abuse V65.42 Active 251009970 Problem Unspecified myalgia and myositis 729.1 Active 735673167 Problem Pain in soft tissues of limb 729.5 A ctive 84885709 Problem Urinary tract infection, site not specified 599.0 Active 37320787 Problem Pain in joint, lower leg 719.46 Activ e 420579851 Problem Chronic airway obstruction, not elsewhere classified 496 Active 71213834 Problem Neurogenic bladder, NOS 596.54 Active 552971433 Problem Acute sinusitis, unspecified 461.9 A ctive 48445155 Problem Personal history of pulmonary embolism V12.55 Active 147802597 Problem Acute bronchitis 466.0 Active 105 57774 Problem Unspecified hearing loss 389.9 Activ e 98853440 Problem Unspecified otalgia 388.70 Active 23878004 Problem Unspecified hereditary and idiopathic peripheral neuropath y 356.9 Active 927176757 Problem Other and unspecified hyperlipidemia 272.4 Active 71379402 Problem Altered mental status 780.97 Active 422047211 Problem Diabetes mellitus without me ntion of complication, type II or unspecified type, not stated as uncontrolled 250.00 Active 576610304 Problem Shortness of breath 786.05 Active 934898074 Problem Other malaise and fatigue 780.79 Acti ve 690508546 Problem Other chronic pain 338.29 Active 8 1140570 Problem Nondependent tobacco use disorder 305.1 Active 001514592 Problem Amphetamine and other psychostimulant de pendence, 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 Active Problem Obesity, unspecified 278.00 Active 349387872 ALLERGIES No Information ENCOUNTERS Encounter Location Date Diagnosis [facility] [address] [facility]NOTE [facility]] [id number] [address] [place] [address] Sep, [facility] [address] [facility]NOTE [facility]] [id number] [address] [place] [address] Sep, [facility] [address] [facility]NOTE [facility]] [id number] [address] [place] [address] Aug, [facility] [address] [facility]NOTE [facility]] [id number] [address] [place] [address] Aug, [facility] [address] [place] [id number] [address] [place] [address] Aug, [facility] [address] [facility]] [id number] [address] [place] [address] Aug, [facility] [address] [facility]NOTE [facility]] [id number] [address] [place] [address] Aug, [facility] [address] [facility]NOTE [facility]] [id number] [address] [place] [address] Aug, [facility] [address] [facility]] [id number] [address] [place] [address] Jul, [facility] [address] [facility]] [id number] [address] [place] [address] Jul, [facility] [address] [place] [id number] [address] [place] [address] Jul, [facility] [address] [id number] [address] [place] [address], [place] [address] Jul, [facility] [address] [id number] [address] [place] [address], [place] [address] Jul, 2014 [facility] [address] [id number] [address] [place] [address], [place] [address] Jul, 2014 [facility] [address] [id number] [address] [place] [address], [place] [address] Jul, [facility] [address] [id number] [address] [place] [address], [place] [address] Jul, [facility] [address] [id number] [address] [place] [address], [place] [address] Jul, [facility] [address] [id number] [address] [place] [address], [place] [address] Jun, [facility] [address] [id number] [address] [place] [address], [place] [address] Jun, [facility] [address] [id number] [address] [place] [address], [place] [address] Jun, [facility] [address] [id number] [address] [place] [address], [place] [address] Jun, [facility] [address] [id number] [address] [place] [address], [place] [address] Jun, [facility] [address] [id number] [address] [place] [address] Jun, [facility] [address] [id number] [address] [place] [address] Jun, [facility] [address] [id number] [address] [place] [address] Jun, [facility] [address] [id number] [address] [place] [address] Jun, [facility] [address] [id number] [address] [place] [address], [place] [address] Jun, [facility] [address] [id number] [address] [place] [address], [place] [address] May, [facility] [address] [id number] [address] [place] [address], [place] [address] May, [facility] [address] [id number] [address] [place] [address], [place] [address] May, [facility] [address] [id number] [address] [place] [address], [place] [address] May, [facility] [address] [id number] [address] [place] [address], [place] [address] May, [facility] [address] [id number] [address] [place] [address], [place] [address] May, [facility] [address] [id number] [address] [place] [address], [place] [address] May, [facility] [address] [id number] [address] [place] [address], [place] [address] May, [facility] [address] [id number] [address] [place] [address], [place] [address] May, [facility] [address] [id number] [address] [place] [address], [place] [address] 15 May, 2014 [facility] [address] [id number] [address] [place] [address], [place] [address] 15 May, 2014 [facility] [address] [id number] [address] [place] [address], [place] [address] Apr, [facility] [address] [id number] [address] [place] [address], [place] [address] Apr, [facility] [address] [id number] [address] [place] [address], [place] [address] 17 Apr, 2014 [facility] [address] [id number] [address] [place] [address], [place] [address] Apr, [facility] [address] [id number] [address] [place] [address], [place] [address] Mar, [facility] [address] [id number] [address] [place] [address], [place] [address] Mar, [facility] [address] [id number] [address] [place] [address], [place] [address] Mar, [facility] [address] [id number] [address] [place] [address], [place] [address] Mar, [facility] [address] [id number] [address] [place] [address], [place] [address] Feb, [facility] [address] [id number] [address] [place] [address], [place] [address] Feb, [facility] [address] [id number] [address] [place] [address], [place] [address] Feb, [facility] [address] [id number] [address] [place] [address], [place] [address] Feb, [facility] [address] [id number] [address] [place] [address], [place] [address] 16 Feb, 2014 [facility] [address] [id number] [address] [place] [address], [place] [address] 16 Feb, 2014 [facility] [address] [id number] [address] [place] [address], [place] [address] Jan, [facility] [address] [id number] [address] [place] [address], [place] [address] Jan, [facility] [address] [id number] [address] [place] [address], [place] [address] Jan, [facility] [address] [id number] [address] [place] [address], [place] [address] Jan, [facility] [address] [id number] [address] [place] [address], [place] [address] Jan, [facility] [address] [id number] [address] [place] [address], [place] [address] Jan, [facility] [address] [id number] [address] [place] [address], [place] [address] Dec, [facility] [address] [id number] [address] [place] [address], [place] [address] Dec, [facility] [address] [id number] [address] [place] [address], [place] [address] Nov, [facility] [address] [id number] [address] [place] [address], [place] [address] Nov, [facility] [address] [id number] [address] [place] [address], [place] [address] Nov, [facility] [address] [id number] [address] [place] [address], [place] [address] Nov, [facility] [address] [id number] [address] [place] [address], [place] [address] Nov, [facility] [address] [id number] [address] [place] [address], [place] [address] Nov, [facility] [address] [id number] [address] [place] [address], [place] [address] Nov, [facility] [address] [id number] [address] [place] [address], [place] [address] October, [facility] [address] [id number] [address] [place] [address], [place] [address] October, [facility] [address] [id number] [address] [place] [address], [place] [address] Sep, [facility] [address] [id number] [address] [place] [address], [place] [address] Sep, [facility] [address] [id number] [address] [place] [address], [place] [address] Sep, [facility] [address] [id number] [address] [place] [address], [place] [address] Sep, [facility] [address] [id number] [facility] [place] [address] 17 Sep, 2013 [facility] [address] [id number] [address] [place] [address], [place] [address] Sep, [facility] [address] [id number] [address] [place] [address], [place] [address] Sep, [facility] [address] [id number] [address] [place] [address], [place] [address] Sep, [facility] [address] [id number] [address] [place] [address], [place] [address] Sep, [facility] [address] [id number] [address] [place] [address], [place] [address] Sep, [facility] [address] [id number] [address] [place] [address], [place] [address] Sep, [facility] [address] [id number] [address] [place] [address], [place] [address] Sep, [facility] [address] [id number] [address] [place] [address], [place] [address] Sep, [facility] [address] [id number] [address] [place] [address], [place] [address] Sep, [facility] [address] [id number] [address] [place] [address], [place] [address] Sep, [facility] [address] [id number] [address] [place] [address], [place] [address] Aug, [facility] [address] [id number] [address] [place] [address], [place] [address] Aug, [facility] [address] [id number] [address] [place] [address], [place] [address] Aug, [facility] [address] [id number] [address] [place] [address], [place] [address] Aug, [facility] [address] [id number] [address] [place] [address], [place] [address] Aug, [facility] [address] [id number] [address] [place] [address], [place] [address] Aug, [facility] [address] [id number] [address] [place] [address], [place] [address] Aug, [facility] [address] [id number] [address] [place] [address], [place] [address] Aug, [facility] [address] [id number] [address] [place] [address], [place] [address] Aug, [facility] [address] [id number] [address] [place] [address], [place] [address] Aug, [facility] [address] [id number] [address] [place] [address], [place] [address] Jun, [facility] [address] [id number] [address] [place] [address], [place] [address] Jun, [facility] [address] [id number] [address] [place] [address], [place] [address] Jun, [facility] [address] [id number] [address] [place] [address], [place] [address] Jun, [facility] [address] [id number] [address] [place] [address], [place] [address] Jun, [facility] [address] [id number] [address] [place] [address], [place] [address] Jun, [facility] [address] [id number] [address] [place] [address], [place] [address] Jun, [facility] [address] [id number] [address] [place] [address], [place] [address] Jun, [facility] [address] [id number] [address] [place] [address], [place] [address] Jun, [facility] [address] [id number] [address] [place] [address], [place] [address] Jun, [facility] [address] [id number] [facility] [place] [address] Jun, [facility] [address] [id number] [facility] [place] [address] Jun, [facility] [address] [id number] [facility] [place] [address] Apr, [facility] [address] [id number] [address] [place] [address], [place] [address] Apr, [facility] [address] [id number] [address] [place] [address], [place] [address] Jan, [facility] [address] [id number] [address] [place] [address], [place] [address] Jan, [facility] [address] [id number] [address] [place] [address], [place] [address] Jan, [facility] [address] [id number] [address] [place] [address], [place] [address] Jan, [facility] [address] [id number] [address] [place] [address], [place] [address] Jan, [facility] [address] [id number] [address] [place] [address], [place] [address] Jan, [facility] [address] [id number] [address] [place] [address], [place] [address] Jan, [facility] [address] [place] [id number] Jan, [facility] [address] [id number] [address] [place] [address], [place] [address] Dec, [facility] [address] [id number] [address] [place] [address], [place] [address] Dec, [facility] [address] [id number] [address] [place] [address], [place] [address] Dec, [facility] [address] [id number] [address] [place] [address], [place] [address] Dec, [facility] [address] [facility]] [id number] [address] [place] [address] Dec, [facility] [address] [facility]] [id number] [address] [place] [address] Dec, [facility] [address] [facility]] [id number] [address] [place] [address] Dec, [facility] [address] [facility]] [id number] [address] [place] [address] Nov, [facility] [address] [facility]] [id number] [address] [place] [address] Nov, IMMUNIZATIONS No Known Immunizations SOCIAL HISTORY Never Assessed REASON FOR VISIT PLAN OF CARE VITAL SIGNS MEDICATIONS Unknown Medications RESULTS No Results PROCEDURES No Known procedures INSTRUCTIONS MEDICATIONS ADMINISTERED No Known Medications
--- OUTSIDE RECORDS SUMMARY | 2019-07-25 20:25 | XMS REPORT ---
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 Active Problem Suicide and self-inflicted p oisoning by unspecified drug or medicinal substance E950.5 Active Problem Other dyspnea and respiratory abnormalities 786.09 Active 957677532 Problem Dysuria 788.1 Active 09084968 Problem Congestive heart failure, unspecified 428.0 Active 83030400 Problem Other screening breast examination V76.19 Active 49125457 Problem Unspecified hypotension 458.9 Active 28307129 Problem Other specified disorders of bladder 596.89 Active 83900070 Problem Encounter for long-term (current) use of other medications V58.69 Active 364314825 Problem Counseling on substance use and abuse V65.42 Active 315833103 Problem Unspecified myalgia and myositis 729.1 Active 649791806 Problem Pain in soft tissues of limb 729.5 A ctive 79070615 Problem Urinary tract infection, site not specified 599.0 Active 36268558 Problem Pain in joint, lower leg 719.46 Activ e 473690007 Problem Chronic airway obstruction, not elsewhere classified 496 Active 04684763 Problem Neurogenic bladder, NOS 596.54 Active 376289008 Problem Acute sinusitis, unspecified 461.9 A ctive 18389529 Problem Personal history of pulmonary embolism V12.55 Active 967765917 Problem Acute bronchitis 466.0 Active 105 35375 Problem Unspecified hearing loss 389.9 Activ e 88137639 Problem Unspecified otalgia 388.70 Active 85722906 Problem Unspecified hereditary and idiopathic peripheral neuropath y 356.9 Active 876181611 Problem Other and unspecified hyperlipidemia 272.4 Active 01993950 Problem Altered mental status 780.97 Active 287716861 Problem Diabetes mellitus without me ntion of complication, type II or unspecified type, not stated as uncontrolled 250.00 Active 861919956 Problem Shortness of breath 786.05 Active 052128898 Problem Other malaise and fatigue 780.79 Acti ve 789968138 Problem Other chronic pain 338.29 Active 8 4894389 Problem Nondependent tobacco use disorder 305.1 Active 885466236 Problem Amphetamine and other psychostimulant de pendence, 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 Active Problem Obesity, unspecified 278.00 Active 190169423 ALLERGIES No Information ENCOUNTERS Encounter Location Date Diagnosis [facility] [place] [address] [facility] [id number] [address] [place] [phone] Sep, [facility] [place] [address] [facility] [id number] [address] [place] [address] Sep, [facility] [place] [address] [facility] [id number] [address] [place] [phone] Aug, [facility] [place] [address] [facility] [id number] [address] [place] [address] Aug, [facility] [place] [address] [place] [id number] [address] [place] [address] Aug, [facility] [place] [address] [facility] [id number] [address] [place] [address] Aug, [facility] [place] [address] [facility] [id number] [address] [place] [address] Aug, [facility] [place] [address] [facility] [id number] [address] [place] [address] Aug, [facility] [place] [address] [facility] [id number] [address] [place] [phone] Jul, [facility] [place] [address] [facility] [id number] [address] [place] [id number] Jul, [facility] [place] [address] [place] [id number] [address] [place] [address] Jul, [facility] [address] [id number] [address] [place] [address], [place] [address] Jul, [facility] [address] [id number] [address] [place] [address], [place] [address] Jul, 2014 [facility] [address] [id number] [address] [place] [address], [place] [address] Jul, 2014 [facility] [address] [id number] [address] [place] [address], [place] [address] Jul, [facility] [address] [id number] [address] [place] [address], [place] [address] Jul, [facility] [address] [id number] [address] [place] [address], [place] [address] Jul, [facility] [address] [id number] [address] [place] [address], [place] [address] Jun, [facility] [address] [id number] [address] [place] [address], [place] [address] Jun, [facility] [address] [id number] [address] [place] [address], [place] [address] Jun, [facility] [address] [id number] [address] [place] [address], [place] [address] Jun, [facility] [address] [id number] [address] [place] [address], [place] [address] Jun, [facility] [address] [id number] [address] [place] [address] Jun, [facility] [address] [id number] [address] [place] [address] Jun, [facility] [address] [id number] [address] [place] [address] Jun, [facility] [address] [id number] [address] [place] [address] Jun, [facility] [address] [id number] [address] [place] [address], [place] [address] Jun, [facility] [address] [id number] [address] [place] [address], [place] [address] May, [facility] [address] [id number] [address] [place] [address], [place] [address] May, [facility] [address] [id number] [address] [place] [address], [place] [address] May, [facility] [address] [id number] [address] [place] [address], [place] [address] May, [facility] [address] [id number] [address] [place] [address], [place] [address] May, [facility] [address] [id number] [address] [place] [address], [place] [address] May, [facility] [address] [id number] [address] [place] [address], [place] [address] May, [facility] [address] [id number] [address] [place] [address], [place] [address] May, [facility] [address] [id number] [address] [place] [address], [place] [address] May, [facility] [address] [id number] [address] [place] [address], [place] [address] 15 May, 2014 [facility] [address] [id number] [address] [place] [address], [place] [address] 15 May, 2014 [facility] [address] [id number] [address] [place] [address], [place] [address] Apr, [facility] [address] [id number] [address] [place] [address], [place] [address] Apr, [facility] [address] [id number] [address] [place] [address], [place] [address] 17 Apr, 2014 [facility] [address] [id number] [address] [place] [address], [place] [address] Apr, [facility] [address] [id number] [address] [place] [address], [place] [address] Mar, [facility] [address] [id number] [address] [place] [address], [place] [address] Mar, [facility] [address] [id number] [address] [place] [address], [place] [address] Mar, [facility] [address] [id number] [address] [place] [address], [place] [address] Mar, [facility] [address] [id number] [address] [place] [address], [place] [address] Feb, [facility] [address] [id number] [address] [place] [address], [place] [address] Feb, [facility] [address] [id number] [address] [place] [address], [place] [address] Feb, [facility] [address] [id number] [address] [place] [address], [place] [address] Feb, [facility] [address] [id number] [address] [place] [address], [place] [address] 16 Feb, 2014 [facility] [address] [id number] [address] [place] [address], [place] [address] 16 Feb, 2014 [facility] [address] [id number] [address] [place] [address], [place] [address] Jan, [facility] [address] [id number] [address] [place] [address], [place] [address] Jan, [facility] [address] [id number] [address] [place] [address], [place] [address] Jan, [facility] [address] [id number] [address] [place] [address], [place] [address] Jan, [facility] [address] [id number] [address] [place] [address], [place] [address] Jan, [facility] [address] [id number] [address] [place] [address], [place] [address] Jan, [facility] [address] [id number] [address] [place] [address], [place] [address] Dec, [facility] [address] [id number] [address] [place] [address], [place] [address] Dec, [facility] [address] [id number] [address] [place] [address], [place] [address] Nov, [facility] [address] [id number] [address] [place] [address], [place] [address] Nov, [facility] [address] [id number] [address] [place] [address], [place] [address] Nov, [facility] [address] [id number] [address] [place] [address], [place] [address] Nov, [facility] [address] [id number] [address] [place] [address], [place] [address] Nov, [facility] [address] [id number] [address] [place] [address], [place] [address] Nov, [facility] [address] [id number] [address] [place] [address], [place] [address] Nov, [facility] [address] [id number] [address] [place] [address], [place] [address] October, [facility] [address] [id number] [address] [place] [address], [place] [address] October, [facility] [address] [id number] [address] [place] [address], [place] [address] Sep, [facility] [address] [id number] [address] [place] [address], [place] [address] Sep, [facility] [address] [id number] [address] [place] [address], [place] [address] Sep, [facility] [address] [id number] [address] [place] [address], [place] [address] Sep, [facility] [address] [id number] [facility] [place] [address] 17 Sep, 2013 [facility] [address] [id number] [address] [place] [address], [place] [address] Sep, [facility] [address] [id number] [address] [place] [address], [place] [address] Sep, [facility] [address] [id number] [address] [place] [address], [place] [address] Sep, [facility] [address] [id number] [address] [place] [address], [place] [address] Sep, [facility] [address] [id number] [address] [place] [address], [place] [address] Sep, [facility] [address] [id number] [address] [place] [address], [place] [address] Sep, [facility] [address] [id number] [address] [place] [address], [place] [address] Sep, [facility] [address] [id number] [address] [place] [address], [place] [address] Sep, [facility] [address] [id number] [address] [place] [address], [place] [address] Sep, [facility] [address] [id number] [address] [place] [address], [place] [address] Sep, [facility] [address] [id number] [address] [place] [address], [place] [address] Aug, [facility] [address] [id number] [address] [place] [address], [place] [address] Aug, [facility] [address] [id number] [address] [place] [address], [place] [address] Aug, [facility] [address] [id number] [address] [place] [address], [place] [address] Aug, [facility] [address] [id number] [address] [place] [address], [place] [address] Aug, [facility] [address] [id number] [address] [place] [address], [place] [address] Aug, [facility] [address] [id number] [address] [place] [address], [place] [address] Aug, [facility] [address] [id number] [address] [place] [address], [place] [address] Aug, [facility] [address] [id number] [address] [place] [address], [place] [address] Aug, [facility] [address] [id number] [address] [place] [address], [place] [address] Aug, [facility] [address] [id number] [address] [place] [address], [place] [address] Jun, [facility] [address] [id number] [address] [place] [address], [place] [address] Jun, [facility] [address] [id number] [address] [place] [address], [place] [address] Jun, [facility] [address] [id number] [address] [place] [address], [place] [address] Jun, [facility] [address] [id number] [address] [place] [address], [place] [address] Jun, [facility] [address] [id number] [address] [place] [address], [place] [address] Jun, [facility] [address] [id number] [address] [place] [address], [place] [address] Jun, [facility] [address] [id number] [address] [place] [address], [place] [address] Jun, [facility] [address] [id number] [address] [place] [address], [place] [address] Jun, [facility] [address] [id number] [address] [place] [address], [place] [address] Jun, [facility] [address] [id number] [facility] [place] [address] Jun, [facility] [address] [id number] [facility] [place] [address] Jun, [facility] [address] [id number] [facility] [place] [address] Apr, [facility] [address] [id number] [address] [place] [address], [place] [address] Apr, [facility] [address] [id number] [address] [place] [address], [place] [address] Jan, [facility] [address] [id number] [address] [place] [address], [place] [address] Jan, [facility] [address] [id number] [address] [place] [address], [place] [address] Jan, [facility] [address] [id number] [address] [place] [address], [place] [address] Jan, [facility] [address] [id number] [address] [place] [address], [place] [address] Jan, [facility] [address] [id number] [address] [place] [address], [place] [address] Jan, [facility] [address] [id number] [address] [place] [address], [place] [address] Jan, [facility] [address] [place] [id number] Jan, [facility] [address] [id number] [address] [place] [address], [place] [address] Dec, [facility] [address] [id number] [address] [place] [address], [place] [address] Dec, [facility] [address] [id number] [address] [place] [address], [place] [address] Dec, [facility] [address] [id number] [address] [place] [address], [place] [address] Dec, [facility] [place] [address] [facility] [id number] [address] [place] [address] Dec, [facility] [place] [address] [facility] [id number] [address] [place] [address] Dec, [facility] [place] [address] [facility] [id number] [address] [place] [address] Dec, [facility] [place] [address] [facility] [id number] [address] [place] [address] Nov, [facility] [place] [address] [facility] [id number] [address] [place] [address] Nov, IMMUNIZATIONS No Known Immunizations SOCIAL HISTORY Never Assessed REASON FOR VISIT PLAN OF CARE VITAL SIGNS MEDICATIONS Unknown Medications RESULTS No Results PROCEDURES No Known procedures INSTRUCTIONS MEDICATIONS ADMINISTERED No Known Medications
--- OUTSIDE RECORDS SUMMARY | 2019-07-25 20:25 | XMS REPORT ---
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 Active Problem Suicide and self-inflicted p oisoning by unspecified drug or medicinal substance E950.5 Active Problem Other dyspnea and respiratory abnormalities 786.09 Active 408937396 Problem Dysuria 788.1 Active 98862124 Problem Congestive heart failure, unspecified 428.0 Active 73453458 Problem Other screening breast examination V76.19 Active 33483970 Problem Unspecified hypotension 458.9 Active 07053916 Problem Other specified disorders of bladder 596.89 Active 88138288 Problem Encounter for long-term (current) use of other medications V58.69 Active 756472066 Problem Counseling on substance use and abuse V65.42 Active 096532266 Problem Unspecified myalgia and myositis 729.1 Active 390268918 Problem Pain in soft tissues of limb 729.5 A ctive 89356002 Problem Urinary tract infection, site not specified 599.0 Active 24717310 Problem Pain in joint, lower leg 719.46 Activ e 694958421 Problem Chronic airway obstruction, not elsewhere classified 496 Active 24297750 Problem Neurogenic bladder, NOS 596.54 Active 600798730 Problem Acute sinusitis, unspecified 461.9 A ctive 07399760 Problem Personal history of pulmonary embolism V12.55 Active 894993662 Problem Acute bronchitis 466.0 Active 105 49393 Problem Unspecified hearing loss 389.9 Activ e 12348794 Problem Unspecified otalgia 388.70 Active 36491444 Problem Unspecified hereditary and idiopathic peripheral neuropath y 356.9 Active 569889598 Problem Other and unspecified hyperlipidemia 272.4 Active 50385745 Problem Altered mental status 780.97 Active 243004615 Problem Diabetes mellitus without me ntion of complication, type II or unspecified type, not stated as uncontrolled 250.00 Active 631320586 Problem Shortness of breath 786.05 Active 766402025 Problem Other malaise and fatigue 780.79 Acti ve 409802349 Problem Other chronic pain 338.29 Active 8 1323284 Problem Nondependent tobacco use disorder 305.1 Active 812819065 Problem Amphetamine and other psychostimulant de pendence, 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 Active Problem Obesity, unspecified 278.00 Active 202085562 ALLERGIES No Information ENCOUNTERS Encounter Location Date Diagnosis [facility] [address] [facility] [id number] [address] [id number] Sep, [facility] [address] [facility] [id number] [address] [place] [id number] Sep, [facility] [address] [facility] [id number] [address] [place] [id number] Aug, [facility] [address] [facility] [id number] [address] [place] [id number] Aug, [facility] [address] [place] [id number] [address] [place] [id number] Aug, [facility] [address] [facility] [id number] [address] [place] [id number] Aug, [facility] [address] [facility] [id number] [address] [place] [id number] Aug, [facility] [address] [facility] [id number] [address] [place] [id number] Aug, [facility] [address] [facility] [id number] [address] [place] [id number] Jul, [facility] [address] [facility] [id number] [address] [place] [id number] Jul, [facility] [address] [place] [id number] [address] [place] [id number] Jul, [facility] [address] [id number] [address] [place] [address], [place] [address] Jul, [facility] [address] [id number] [address] [place] [address], [place] [address] Jul, 2014 [facility] [address] [id number] [address] [place] [address], [place] [address] Jul, 2014 [facility] [address] [id number] [address] [place] [address], [place] [address] Jul, [facility] [address] [id number] [address] [place] [address], [place] [address] Jul, [facility] [address] [id number] [address] [place] [address], [place] [address] Jul, [facility] [address] [id number] [address] [place] [address], [place] [address] Jun, [facility] [address] [id number] [address] [place] [address], [place] [address] Jun, [facility] [address] [id number] [address] [place] [address], [place] [address] Jun, [facility] [address] [id number] [address] [place] [address], [place] [address] Jun, [facility] [address] [id number] [address] [place] [address], [place] [address] Jun, [facility] [address] [id number] [address] [place] [id number] Jun, [facility] [address] [id number] [address] [place] [id number] Jun, [facility] [address] [id number] [address] [place] [id number] Jun, [facility] [address] [id number] [address] [place] [id number] Jun, [facility] [address] [id number] [address] [place] [address], [place] [address] Jun, [facility] [address] [id number] [address] [place] [address], [place] [address] May, [facility] [address] [id number] [address] [place] [address], [place] [address] May, [facility] [address] [id number] [address] [place] [address], [place] [address] May, [facility] [address] [id number] [address] [place] [address], [place] [address] May, [facility] [address] [id number] [address] [place] [address], [place] [address] May, [facility] [address] [id number] [address] [place] [address], [place] [address] May, [facility] [address] [id number] [address] [place] [address], [place] [address] May, [facility] [address] [id number] [address] [place] [address], [place] [address] May, [facility] [address] [id number] [address] [place] [address], [place] [address] May, [facility] [address] [id number] [address] [place] [address], [place] [address] 15 May, 2014 [facility] [address] [id number] [address] [place] [address], [place] [address] 15 May, 2014 [facility] [address] [id number] [address] [place] [address], [place] [address] Apr, [facility] [address] [id number] [address] [place] [address], [place] [address] Apr, [facility] [address] [id number] [address] [place] [address], [place] [address] 17 Apr, 2014 [facility] [address] [id number] [address] [place] [address], [place] [address] Apr, [facility] [address] [id number] [address] [place] [address], [place] [address] Mar, [facility] [address] [id number] [address] [place] [address], [place] [address] Mar, [facility] [address] [id number] [address] [place] [address], [place] [address] Mar, [facility] [address] [id number] [address] [place] [address], [place] [address] Mar, [facility] [address] [id number] [address] [place] [address], [place] [address] Feb, [facility] [address] [id number] [address] [place] [address], [place] [address] Feb, [facility] [address] [id number] [address] [place] [address], [place] [address] Feb, [facility] [address] [id number] [address] [place] [address], [place] [address] Feb, [facility] [address] [id number] [address] [place] [address], [place] [address] 16 Feb, 2014 [facility] [address] [id number] [address] [place] [address], [place] [address] 16 Feb, 2014 [facility] [address] [id number] [address] [place] [address], [place] [address] Jan, [facility] [address] [id number] [address] [place] [address], [place] [address] Jan, [facility] [address] [id number] [address] [place] [address], [place] [address] Jan, [facility] [address] [id number] [address] [place] [address], [place] [address] Jan, [facility] [address] [id number] [address] [place] [address], [place] [address] Jan, [facility] [address] [id number] [address] [place] [address], [place] [address] Jan, [facility] [address] [id number] [address] [place] [address], [place] [address] Dec, [facility] [address] [id number] [address] [place] [address], [place] [address] Dec, [facility] [address] [id number] [address] [place] [address], [place] [address] Nov, [facility] [address] [id number] [address] [place] [address], [place] [address] Nov, [facility] [address] [id number] [address] [place] [address], [place] [address] Nov, [facility] [address] [id number] [address] [place] [address], [place] [address] Nov, [facility] [address] [id number] [address] [place] [address], [place] [address] Nov, [facility] [address] [id number] [address] [place] [address], [place] [address] Nov, [facility] [address] [id number] [address] [place] [address], [place] [address] Nov, [facility] [address] [id number] [address] [place] [address], [place] [address] October, [facility] [address] [id number] [address] [place] [address], [place] [address] October, [facility] [address] [id number] [address] [place] [address], [place] [address] Sep, [facility] [address] [id number] [address] [place] [address], [place] [address] Sep, [facility] [address] [id number] [address] [place] [address], [place] [address] Sep, [facility] [address] [id number] [address] [place] [address], [place] [address] Sep, [facility] [address] [id number] [facility] [place] [address] 17 Sep, 2013 [facility] [address] [id number] [address] [place] [address], [place] [address] Sep, [facility] [address] [id number] [address] [place] [address], [place] [address] Sep, [facility] [address] [id number] [address] [place] [address], [place] [address] Sep, [facility] [address] [id number] [address] [place] [address], [place] [address] Sep, [facility] [address] [id number] [address] [place] [address], [place] [address] Sep, [facility] [address] [id number] [address] [place] [address], [place] [address] Sep, [facility] [address] [id number] [address] [place] [address], [place] [address] Sep, [facility] [address] [id number] [address] [place] [address], [place] [address] Sep, [facility] [address] [id number] [address] [place] [address], [place] [address] Sep, [facility] [address] [id number] [address] [place] [address], [place] [address] Sep, [facility] [address] [id number] [address] [place] [address], [place] [address] Aug, [facility] [address] [id number] [address] [place] [address], [place] [address] Aug, [facility] [address] [id number] [address] [place] [address], [place] [address] Aug, [facility] [address] [id number] [address] [place] [address], [place] [address] Aug, [facility] [address] [id number] [address] [place] [address], [place] [address] Aug, [facility] [address] [id number] [address] [place] [address], [place] [address] Aug, [facility] [address] [id number] [address] [place] [address], [place] [address] Aug, [facility] [address] [id number] [address] [place] [address], [place] [address] Aug, [facility] [address] [id number] [address] [place] [address], [place] [address] Aug, [facility] [address] [id number] [address] [place] [address], [place] [address] Aug, [facility] [address] [id number] [address] [place] [address], [place] [address] Jun, [facility] [address] [id number] [address] [place] [address], [place] [address] Jun, [facility] [address] [id number] [address] [place] [address], [place] [address] Jun, [facility] [address] [id number] [address] [place] [address], [place] [address] Jun, [facility] [address] [id number] [address] [place] [address], [place] [address] Jun, [facility] [address] [id number] [address] [place] [address], [place] [address] Jun, [facility] [address] [id number] [address] [place] [address], [place] [address] Jun, [facility] [address] [id number] [address] [place] [address], [place] [address] Jun, [facility] [address] [id number] [address] [place] [address], [place] [address] Jun, [facility] [address] [id number] [address] [place] [address], [place] [address] Jun, [facility] [address] [id number] [facility] [place] [address] Jun, [facility] [address] [id number] [facility] [place] [address] Jun, [facility] [address] [id number] [facility] [place] [address] Apr, [facility] [address] [id number] [address] [place] [address], [place] [address] Apr, [facility] [address] [id number] [address] [place] [address], [place] [address] Jan, [facility] [address] [id number] [address] [place] [address], [place] [address] Jan, [facility] [address] [id number] [address] [place] [address], [place] [address] Jan, [facility] [address] [id number] [address] [place] [address], [place] [address] Jan, [facility] [address] [id number] [address] [place] [address], [place] [address] Jan, [facility] [address] [id number] [address] [place] [address], [place] [address] Jan, [facility] [address] [id number] [address] [place] [address], [place] [address] Jan, [facility] [address] [place] [id number] Jan, [facility] [address] [id number] [address] [place] [address], [place] [address] Dec, [facility] [address] [id number] [address] [place] [address], [place] [address] Dec, [facility] [address] [id number] [address] [place] [address], [place] [address] Dec, [facility] [address] [id number] [address] [place] [address], [place] [address] Dec, [facility] [address] [facility] [id number] [address] [place] [id number] Dec, [facility] [address] [facility] [id number] [address] [place] [address] Dec, [facility] [address] [facility] [id number] [address] [place] [id number] Dec, [facility] [address] [facility] [id number] [address] [place] [id number] Nov, [facility] [address] [facility] [id number] [address] [place] [address] Nov, IMMUNIZATIONS No Known Immunizations SOCIAL HISTORY Never Assessed REASON FOR VISIT PLAN OF CARE VITAL SIGNS MEDICATIONS Unknown Medications RESULTS No Results PROCEDURES No Known procedures INSTRUCTIONS MEDICATIONS ADMINISTERED No Known Medications
--- OUTSIDE RECORDS SUMMARY | 2019-07-25 20:25 | XMS REPORT ---
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 Active Problem Suicide and self-inflicted p oisoning by unspecified drug or medicinal substance E950.5 Active Problem Other dyspnea and respiratory abnormalities 786.09 Active 841710955 Problem Dysuria 788.1 Active 66906938 Problem Congestive heart failure, unspecified 428.0 Active 95092823 Problem Other screening breast examination V76.19 Active 25338197 Problem Unspecified hypotension 458.9 Active 53074834 Problem Other specified disorders of bladder 596.89 Active 11281056 Problem Encounter for long-term (current) use of other medications V58.69 Active 159500832 Problem Counseling on substance use and abuse V65.42 Active 904399115 Problem Unspecified myalgia and myositis 729.1 Active 546097056 Problem Pain in soft tissues of limb 729.5 A ctive 55762863 Problem Urinary tract infection, site not specified 599.0 Active 55080819 Problem Pain in joint, lower leg 719.46 Activ e 907473370 Problem Chronic airway obstruction, not elsewhere classified 496 Active 38168271 Problem Neurogenic bladder, NOS 596.54 Active 993708758 Problem Acute sinusitis, unspecified 461.9 A ctive 00828735 Problem Personal history of pulmonary embolism V12.55 Active 659945879 Problem Acute bronchitis 466.0 Active 105 29583 Problem Unspecified hearing loss 389.9 Activ e 75370723 Problem Unspecified otalgia 388.70 Active 45726043 Problem Unspecified hereditary and idiopathic peripheral neuropath y 356.9 Active 181768033 Problem Other and unspecified hyperlipidemia 272.4 Active 44911864 Problem Altered mental status 780.97 Active 442561676 Problem Diabetes mellitus without me ntion of complication, type II or unspecified type, not stated as uncontrolled 250.00 Active 466769258 Problem Shortness of breath 786.05 Active 508189721 Problem Other malaise and fatigue 780.79 Acti ve 927748097 Problem Other chronic pain 338.29 Active 8 0474080 Problem Nondependent tobacco use disorder 305.1 Active 385668284 Problem Amphetamine and other psychostimulant de pendence, 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 Active Problem Obesity, unspecified 278.00 Active 495045619 ALLERGIES No Information ENCOUNTERS Encounter Location Date Diagnosis [facility] [address] [facility] [id number] [address] [place] [address] Sep, [facility] [address] [facility] [id number] [address] [place] [address] Sep, [facility] [address] [facility] [id number] [address] [place] [address] Aug, [facility] [address] [facility] [id number] [address] [place] [address] Aug, [facility] [address] [place] [id number] [address] [place] [address] Aug, [facility] [address] [facility] [id number] [address] [place] [address] Aug, [facility] [address] [facility] [id number] [address] [place] [address] Aug, [facility] [address] [facility] [id number] [address] [place] [address] Aug, [facility] [address] [facility] [id number] [address] [place] [address] Jul, [facility] [address] [facility] [id number] [address] [place] [address] Jul, [facility] [address] [place] [id number] [address] [place] [address] Jul, [facility] [address] [id number] [address] [place] [address], [place] [address] Jul, [facility] [address] [id number] [address] [place] [address], [place] [address] Jul, 2014 [facility] [address] [id number] [address] [place] [address], [place] [address] Jul, 2014 [facility] [address] [id number] [address] [place] [address], [place] [address] Jul, [facility] [address] [id number] [address] [place] [address], [place] [address] Jul, [facility] [address] [id number] [address] [place] [address], [place] [address] Jul, [facility] [address] [id number] [address] [place] [address], [place] [address] Jun, [facility] [address] [id number] [address] [place] [address], [place] [address] Jun, [facility] [address] [id number] [address] [place] [address], [place] [address] Jun, [facility] [address] [id number] [address] [place] [address], [place] [address] Jun, [facility] [address] [id number] [address] [place] [address], [place] [address] Jun, [facility] [address] [id number] [address] [place] [address] Jun, [facility] [address] [id number] [address] [place] [address] Jun, [facility] [address] [id number] [address] [place] [address] Jun, [facility] [address] [id number] [address] [place] [address] Jun, [facility] [address] [id number] [address] [place] [address], [place] [address] Jun, [facility] [address] [id number] [address] [place] [address], [place] [address] May, [facility] [address] [id number] [address] [place] [address], [place] [address] May, [facility] [address] [id number] [address] [place] [address], [place] [address] May, [facility] [address] [id number] [address] [place] [address], [place] [address] May, [facility] [address] [id number] [address] [place] [address], [place] [address] May, [facility] [address] [id number] [address] [place] [address], [place] [address] May, [facility] [address] [id number] [address] [place] [address], [place] [address] May, [facility] [address] [id number] [address] [place] [address], [place] [address] May, [facility] [address] [id number] [address] [place] [address], [place] [address] May, [facility] [address] [id number] [address] [place] [address], [place] [address] 15 May, 2014 [facility] [address] [id number] [address] [place] [address], [place] [address] 15 May, 2014 [facility] [address] [id number] [address] [place] [address], [place] [address] Apr, [facility] [address] [id number] [address] [place] [address], [place] [address] Apr, [facility] [address] [id number] [address] [place] [address], [place] [address] 17 Apr, 2014 [facility] [address] [id number] [address] [place] [address], [place] [address] Apr, [facility] [address] [id number] [address] [place] [address], [place] [address] Mar, [facility] [address] [id number] [address] [place] [address], [place] [address] Mar, [facility] [address] [id number] [address] [place] [address], [place] [address] Mar, [facility] [address] [id number] [address] [place] [address], [place] [address] Mar, [facility] [address] [id number] [address] [place] [address], [place] [address] Feb, [facility] [address] [id number] [address] [place] [address], [place] [address] Feb, [facility] [address] [id number] [address] [place] [address], [place] [address] Feb, [facility] [address] [id number] [address] [place] [address], [place] [address] Feb, [facility] [address] [id number] [address] [place] [address], [place] [address] 16 Feb, 2014 [facility] [address] [id number] [address] [place] [address], [place] [address] 16 Feb, 2014 [facility] [address] [id number] [address] [place] [address], [place] [address] Jan, [facility] [address] [id number] [address] [place] [address], [place] [address] Jan, [facility] [address] [id number] [address] [place] [address], [place] [address] Jan, [facility] [address] [id number] [address] [place] [address], [place] [address] Jan, [facility] [address] [id number] [address] [place] [address], [place] [address] Jan, [facility] [address] [id number] [address] [place] [address], [place] [address] Jan, [facility] [address] [id number] [address] [place] [address], [place] [address] Dec, [facility] [address] [id number] [address] [place] [address], [place] [address] Dec, [facility] [address] [id number] [address] [place] [address], [place] [address] Nov, [facility] [address] [id number] [address] [place] [address], [place] [address] Nov, [facility] [address] [id number] [address] [place] [address], [place] [address] Nov, [facility] [address] [id number] [address] [place] [address], [place] [address] Nov, [facility] [address] [id number] [address] [place] [address], [place] [address] Nov, [facility] [address] [id number] [address] [place] [address], [place] [address] Nov, [facility] [address] [id number] [address] [place] [address], [place] [address] Nov, [facility] [address] [id number] [address] [place] [address], [place] [address] October, [facility] [address] [id number] [address] [place] [address], [place] [address] October, [facility] [address] [id number] [address] [place] [address], [place] [address] Sep, [facility] [address] [id number] [address] [place] [address], [place] [address] Sep, [facility] [address] [id number] [address] [place] [address], [place] [address] Sep, [facility] [address] [id number] [address] [place] [address], [place] [address] Sep, [facility] [address] [id number] [facility] [place] [address] 17 Sep, 2013 [facility] [address] [id number] [address] [place] [address], [place] [address] Sep, [facility] [address] [id number] [address] [place] [address], [place] [address] Sep, [facility] [address] [id number] [address] [place] [address], [place] [address] Sep, [facility] [address] [id number] [address] [place] [address], [place] [address] Sep, [facility] [address] [id number] [address] [place] [address], [place] [address] Sep, [facility] [address] [id number] [address] [place] [address], [place] [address] Sep, [facility] [address] [id number] [address] [place] [address], [place] [address] Sep, [facility] [address] [id number] [address] [place] [address], [place] [address] Sep, [facility] [address] [id number] [address] [place] [address], [place] [address] Sep, [facility] [address] [id number] [address] [place] [address], [place] [address] Sep, [facility] [address] [id number] [address] [place] [address], [place] [address] Aug, [facility] [address] [id number] [address] [place] [address], [place] [address] Aug, [facility] [address] [id number] [address] [place] [address], [place] [address] Aug, [facility] [address] [id number] [address] [place] [address], [place] [address] Aug, [facility] [address] [id number] [address] [place] [address], [place] [address] Aug, [facility] [address] [id number] [address] [place] [address], [place] [address] Aug, [facility] [address] [id number] [address] [place] [address], [place] [address] Aug, [facility] [address] [id number] [address] [place] [address], [place] [address] Aug, [facility] [address] [id number] [address] [place] [address], [place] [address] Aug, [facility] [address] [id number] [address] [place] [address], [place] [address] Aug, [facility] [address] [id number] [address] [place] [address], [place] [address] Jun, [facility] [address] [id number] [address] [place] [address], [place] [address] Jun, [facility] [address] [id number] [address] [place] [address], [place] [address] Jun, [facility] [address] [id number] [address] [place] [address], [place] [address] Jun, [facility] [address] [id number] [address] [place] [address], [place] [address] Jun, [facility] [address] [id number] [address] [place] [address], [place] [address] Jun, [facility] [address] [id number] [address] [place] [address], [place] [address] Jun, [facility] [address] [id number] [address] [place] [address], [place] [address] Jun, [facility] [address] [id number] [address] [place] [address], [place] [address] Jun, [facility] [address] [id number] [address] [place] [address], [place] [address] Jun, [facility] [address] [id number] [facility] [place] [address] Jun, [facility] [address] [id number] [facility] [place] [address] Jun, [facility] [address] [id number] [facility] [place] [address] Apr, [facility] [address] [id number] [address] [place] [address], [place] [address] Apr, [facility] [address] [id number] [address] [place] [address], [place] [address] Jan, [facility] [address] [id number] [address] [place] [address], [place] [address] Jan, [facility] [address] [id number] [address] [place] [address], [place] [address] Jan, [facility] [address] [id number] [address] [place] [address], [place] [address] Jan, [facility] [address] [id number] [address] [place] [address], [place] [address] Jan, [facility] [address] [id number] [address] [place] [address], [place] [address] Jan, [facility] [address] [id number] [address] [place] [address], [place] [address] Jan, [facility] [address] [place] [id number] Jan, [facility] [address] [id number] [address] [place] [address], [place] [address] Dec, [facility] [address] [id number] [address] [place] [address], [place] [address] Dec, [facility] [address] [id number] [address] [place] [address], [place] [address] Dec, [facility] [address] [id number] [address] [place] [address], [place] [address] Dec, [facility] [address] [facility] [id number] [address] [place] [address] Dec, [facility] [address] [facility] [id number] [address] [place] [address] Dec, [facility] [address] [facility] [id number] [address] [place] [address] Dec, [facility] [address] [facility] [id number] [address] [place] [address] Nov, [facility] [address] [facility] [id number] [address] [place] [address] Nov, IMMUNIZATIONS No Known Immunizations SOCIAL HISTORY Never Assessed REASON FOR VISIT PLAN OF CARE VITAL SIGNS MEDICATIONS Unknown Medications RESULTS No Results PROCEDURES No Known procedures INSTRUCTIONS MEDICATIONS ADMINISTERED No Known Medications
--- OUTSIDE RECORDS SUMMARY | 2019-07-25 20:25 | XMS REPORT ---
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 Active Problem Suicide and self-inflicted p oisoning by unspecified drug or medicinal substance E950.5 Active Problem Other dyspnea and respiratory abnormalities 786.09 Active 916950348 Problem Dysuria 788.1 Active 21731239 Problem Congestive heart failure, unspecified 428.0 Active 24951278 Problem Other screening breast examination V76.19 Active 89324144 Problem Unspecified hypotension 458.9 Active 83687688 Problem Other specified disorders of bladder 596.89 Active 84252621 Problem Encounter for long-term (current) use of other medications V58.69 Active 540740462 Problem Counseling on substance use and abuse V65.42 Active 989446488 Problem Unspecified myalgia and myositis 729.1 Active 042615671 Problem Pain in soft tissues of limb 729.5 A ctive 58296093 Problem Urinary tract infection, site not specified 599.0 Active 55917754 Problem Pain in joint, lower leg 719.46 Activ e 951802339 Problem Chronic airway obstruction, not elsewhere classified 496 Active 91599475 Problem Neurogenic bladder, NOS 596.54 Active 649922945 Problem Acute sinusitis, unspecified 461.9 A ctive 03972758 Problem Personal history of pulmonary embolism V12.55 Active 420115367 Problem Acute bronchitis 466.0 Active 105 75954 Problem Unspecified hearing loss 389.9 Activ e 00889011 Problem Unspecified otalgia 388.70 Active 90471881 Problem Unspecified hereditary and idiopathic peripheral neuropath y 356.9 Active 215897535 Problem Other and unspecified hyperlipidemia 272.4 Active 09528217 Problem Altered mental status 780.97 Active 507964025 Problem Diabetes mellitus without me ntion of complication, type II or unspecified type, not stated as uncontrolled 250.00 Active 284191711 Problem Shortness of breath 786.05 Active 902326158 Problem Other malaise and fatigue 780.79 Acti ve 487041933 Problem Other chronic pain 338.29 Active 8 4301974 Problem Nondependent tobacco use disorder 305.1 Active 389405099 Problem Amphetamine and other psychostimulant de pendence, 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 Active Problem Obesity, unspecified 278.00 Active 520803360 ALLERGIES No Information ENCOUNTERS Encounter Location Date Diagnosis [facility] [address] [facility] [id number] [address] [place] [address] Sep, [facility] [address] [facility] [id number] [address] [place] [id number] Sep, [facility] [address] [facility] [id number] [address] [place] [address] Aug, [facility] [address] [facility] [id number] [address] [place] [address] Aug, [facility] [address] [place] [id number] [address] [place] [address] Aug, [facility] [address] [facility] [id number] [address] [place] [phone] Aug, [facility] [address] [facility] [id number] [address] [place] [address] Aug, [facility] [address] [facility] [id number] [address] [place] [address] Aug, [facility] [address] [facility] [id number] [address] [place] [address] Jul, [facility] [address] [facility] [id number] [address] [place] [address] Jul, [facility] [address] [place] [id number] [address] [place] [address] Jul, [facility] [address] [id number] [address] [place] [address], [place] [address] Jul, [facility] [address] [id number] [address] [place] [address], [place] [address] Jul, 2014 [facility] [address] [id number] [address] [place] [address], [place] [address] Jul, 2014 [facility] [address] [id number] [address] [place] [address], [place] [address] Jul, [facility] [address] [id number] [address] [place] [address], [place] [address] Jul, [facility] [address] [id number] [address] [place] [address], [place] [address] Jul, [facility] [address] [id number] [address] [place] [address], [place] [address] Jun, [facility] [address] [id number] [address] [place] [address], [place] [address] Jun, [facility] [address] [id number] [address] [place] [address], [place] [address] Jun, [facility] [address] [id number] [address] [place] [address], [place] [address] Jun, [facility] [address] [id number] [address] [place] [address], [place] [address] Jun, [facility] [address] [id number] [address] [place] [address] Jun, [facility] [address] [id number] [address] [place] [address] Jun, [facility] [address] [id number] [address] [place] [address] Jun, [facility] [address] [id number] [address] [place] [phone] Jun, [facility] [address] [id number] [address] [place] [address], [place] [address] Jun, [facility] [address] [id number] [address] [place] [address], [place] [address] May, [facility] [address] [id number] [address] [place] [address], [place] [address] May, [facility] [address] [id number] [address] [place] [address], [place] [address] May, [facility] [address] [id number] [address] [place] [address], [place] [address] May, [facility] [address] [id number] [address] [place] [address], [place] [address] May, [facility] [address] [id number] [address] [place] [address], [place] [address] May, [facility] [address] [id number] [address] [place] [address], [place] [address] May, [facility] [address] [id number] [address] [place] [address], [place] [address] May, [facility] [address] [id number] [address] [place] [address], [place] [address] May, [facility] [address] [id number] [address] [place] [address], [place] [address] 15 May, 2014 [facility] [address] [id number] [address] [place] [address], [place] [address] 15 May, 2014 [facility] [address] [id number] [address] [place] [address], [place] [address] Apr, [facility] [address] [id number] [address] [place] [address], [place] [address] Apr, [facility] [address] [id number] [address] [place] [address], [place] [address] 17 Apr, 2014 [facility] [address] [id number] [address] [place] [address], [place] [address] Apr, [facility] [address] [id number] [address] [place] [address], [place] [address] Mar, [facility] [address] [id number] [address] [place] [address], [place] [address] Mar, [facility] [address] [id number] [address] [place] [address], [place] [address] Mar, [facility] [address] [id number] [address] [place] [address], [place] [address] Mar, [facility] [address] [id number] [address] [place] [address], [place] [address] Feb, [facility] [address] [id number] [address] [place] [address], [place] [address] Feb, [facility] [address] [id number] [address] [place] [address], [place] [address] Feb, [facility] [address] [id number] [address] [place] [address], [place] [address] Feb, [facility] [address] [id number] [address] [place] [address], [place] [address] 16 Feb, 2014 [facility] [address] [id number] [address] [place] [address], [place] [address] 16 Feb, 2014 [facility] [address] [id number] [address] [place] [address], [place] [address] Jan, [facility] [address] [id number] [address] [place] [address], [place] [address] Jan, [facility] [address] [id number] [address] [place] [address], [place] [address] Jan, [facility] [address] [id number] [address] [place] [address], [place] [address] Jan, [facility] [address] [id number] [address] [place] [address], [place] [address] Jan, [facility] [address] [id number] [address] [place] [address], [place] [address] Jan, [facility] [address] [id number] [address] [place] [address], [place] [address] Dec, [facility] [address] [id number] [address] [place] [address], [place] [address] Dec, [facility] [address] [id number] [address] [place] [address], [place] [address] Nov, [facility] [address] [id number] [address] [place] [address], [place] [address] Nov, [facility] [address] [id number] [address] [place] [address], [place] [address] Nov, [facility] [address] [id number] [address] [place] [address], [place] [address] Nov, [facility] [address] [id number] [address] [place] [address], [place] [address] Nov, [facility] [address] [id number] [address] [place] [address], [place] [address] Nov, [facility] [address] [id number] [address] [place] [address], [place] [address] Nov, [facility] [address] [id number] [address] [place] [address], [place] [address] October, [facility] [address] [id number] [address] [place] [address], [place] [address] October, [facility] [address] [id number] [address] [place] [address], [place] [address] Sep, [facility] [address] [id number] [address] [place] [address], [place] [address] Sep, [facility] [address] [id number] [address] [place] [address], [place] [address] Sep, [facility] [address] [id number] [address] [place] [address], [place] [address] Sep, [facility] [address] [id number] [facility] [place] [address] 17 Sep, 2013 [facility] [address] [id number] [address] [place] [address], [place] [address] Sep, [facility] [address] [id number] [address] [place] [address], [place] [address] Sep, [facility] [address] [id number] [address] [place] [address], [place] [address] Sep, [facility] [address] [id number] [address] [place] [address], [place] [address] Sep, [facility] [address] [id number] [address] [place] [address], [place] [address] Sep, [facility] [address] [id number] [address] [place] [address], [place] [address] Sep, [facility] [address] [id number] [address] [place] [address], [place] [address] Sep, [facility] [address] [id number] [address] [place] [address], [place] [address] Sep, [facility] [address] [id number] [address] [place] [address], [place] [address] Sep, [facility] [address] [id number] [address] [place] [address], [place] [address] Sep, [facility] [address] [id number] [address] [place] [address], [place] [address] Aug, [facility] [address] [id number] [address] [place] [address], [place] [address] Aug, [facility] [address] [id number] [address] [place] [address], [place] [address] Aug, [facility] [address] [id number] [address] [place] [address], [place] [address] Aug, [facility] [address] [id number] [address] [place] [address], [place] [address] Aug, [facility] [address] [id number] [address] [place] [address], [place] [address] Aug, [facility] [address] [id number] [address] [place] [address], [place] [address] Aug, [facility] [address] [id number] [address] [place] [address], [place] [address] Aug, [facility] [address] [id number] [address] [place] [address], [place] [address] Aug, [facility] [address] [id number] [address] [place] [address], [place] [address] Aug, [facility] [address] [id number] [address] [place] [address], [place] [address] Jun, [facility] [address] [id number] [address] [place] [address], [place] [address] Jun, [facility] [address] [id number] [address] [place] [address], [place] [address] Jun, [facility] [address] [id number] [address] [place] [address], [place] [address] Jun, [facility] [address] [id number] [address] [place] [address], [place] [address] Jun, [facility] [address] [id number] [address] [place] [address], [place] [address] Jun, [facility] [address] [id number] [address] [place] [address], [place] [address] Jun, [facility] [address] [id number] [address] [place] [address], [place] [address] Jun, [facility] [address] [id number] [address] [place] [address], [place] [address] Jun, [facility] [address] [id number] [address] [place] [address], [place] [address] Jun, [facility] [address] [id number] [facility] [place] [address] Jun, [facility] [address] [id number] [facility] [place] [address] Jun, [facility] [address] [id number] [facility] [place] [address] Apr, [facility] [address] [id number] [address] [place] [address], [place] [address] Apr, [facility] [address] [id number] [address] [place] [address], [place] [address] Jan, [facility] [address] [id number] [address] [place] [address], [place] [address] Jan, [facility] [address] [id number] [address] [place] [address], [place] [address] Jan, [facility] [address] [id number] [address] [place] [address], [place] [address] Jan, [facility] [address] [id number] [address] [place] [address], [place] [address] Jan, [facility] [address] [id number] [address] [place] [address], [place] [address] Jan, [facility] [address] [id number] [address] [place] [address], [place] [address] Jan, [facility] [address] [place] [id number] Jan, [facility] [address] [id number] [address] [place] [address], [place] [address] Dec, [facility] [address] [id number] [address] [place] [address], [place] [address] Dec, [facility] [address] [id number] [address] [place] [address], [place] [address] Dec, [facility] [address] [id number] [address] [place] [address], [place] [address] Dec, [facility] [address] [facility] [id number] [address] [place] [address] Dec, [facility] [address] [facility] [id number] [address] [place] [id number] Dec, [facility] [address] [facility] [id number] [address] [place] [address] Dec, [facility] [address] [facility] [id number] [address] [place] [id number] Nov, [facility] [address] [facility] [id number] [address] [place] [address] Nov, IMMUNIZATIONS No Known Immunizations SOCIAL HISTORY Never Assessed REASON FOR VISIT PLAN OF CARE VITAL SIGNS MEDICATIONS Unknown Medications RESULTS No Results PROCEDURES No Known procedures INSTRUCTIONS MEDICATIONS ADMINISTERED No Known Medications
--- OUTSIDE RECORDS SUMMARY | 2019-07-25 20:25 | XMS REPORT ---
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 Active Problem Suicide and self-inflicted p oisoning by unspecified drug or medicinal substance E950.5 Active Problem Other dyspnea and respiratory abnormalities 786.09 Active 360146957 Problem Dysuria 788.1 Active 83883440 Problem Congestive heart failure, unspecified 428.0 Active 47673775 Problem Other screening breast examination V76.19 Active 50062124 Problem Unspecified hypotension 458.9 Active 29939779 Problem Other specified disorders of bladder 596.89 Active 82783389 Problem Encounter for long-term (current) use of other medications V58.69 Active 154415316 Problem Counseling on substance use and abuse V65.42 Active 945911900 Problem Unspecified myalgia and myositis 729.1 Active 702141843 Problem Pain in soft tissues of limb 729.5 A ctive 58090776 Problem Urinary tract infection, site not specified 599.0 Active 11025161 Problem Pain in joint, lower leg 719.46 Activ e 336252243 Problem Chronic airway obstruction, not elsewhere classified 496 Active 89614670 Problem Neurogenic bladder, NOS 596.54 Active 540959035 Problem Acute sinusitis, unspecified 461.9 A ctive 14467103 Problem Personal history of pulmonary embolism V12.55 Active 062461645 Problem Acute bronchitis 466.0 Active 105 61478 Problem Unspecified hearing loss 389.9 Activ e 05573433 Problem Unspecified otalgia 388.70 Active 26823088 Problem Unspecified hereditary and idiopathic peripheral neuropath y 356.9 Active 330770368 Problem Other and unspecified hyperlipidemia 272.4 Active 15222234 Problem Altered mental status 780.97 Active 162880879 Problem Diabetes mellitus without me ntion of complication, type II or unspecified type, not stated as uncontrolled 250.00 Active 072546621 Problem Shortness of breath 786.05 Active 300989454 Problem Other malaise and fatigue 780.79 Acti ve 213738937 Problem Other chronic pain 338.29 Active 8 7882759 Problem Nondependent tobacco use disorder 305.1 Active 324851911 Problem Amphetamine and other psychostimulant de pendence, 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 [address] [facility] [id number] [address] [place] [address] Sep, [facility] [address] [facility] [id number] [address] [place] [address] Sep, [facility] [address] [facility] [id number] [address] [place] [address] Aug, [facility] [address] [facility] [id number] [address] [place] [address] Aug, [facility] [address] [place] [id number] [address] [place] [address] Aug, [facility] [address] [facility] [id number] [address] [place] [address] Aug, [facility] [address] [facility] [id number] [address] [place] [address] Aug, [facility] [address] [facility] [id number] [address] [place] [address] Aug, [facility] [address] [facility] [id number] [address] [place] [address] Jul, [facility] [address] [facility] [id number] [address] [place] [address] Jul, [facility] [address] [place] [id number] [address] [place] [address] Jul, [facility] [address] [id number] [address] [place] [address], [place] [address] Jul, [facility] [address] [id number] [address] [place] [address], [place] [address] Jul, 2014 [facility] [address] [id number] [address] [place] [address], [place] [address] Jul, 2014 [facility] [address] [id number] [address] [place] [address], [place] [address] Jul, [facility] [address] [id number] [address] [place] [address], [place] [address] Jul, [facility] [address] [id number] [address] [place] [address], [place] [address] Jul, [facility] [address] [id number] [address] [place] [address], [place] [address] Jun, [facility] [address] [id number] [address] [place] [address], [place] [address] Jun, [facility] [address] [id number] [address] [place] [address], [place] [address] Jun, [facility] [address] [id number] [address] [place] [address], [place] [address] Jun, [facility] [address] [id number] [address] [place] [address], [place] [address] Jun, [facility] [address] [id number] [address] [place] [address] Jun, [facility] [address] [id number] [address] [place] [address] Jun, [facility] [address] [id number] [address] [place] [address] Jun, [facility] [address] [id number] [address] [place] [address] Jun, [facility] [address] [id number] [address] [place] [address], [place] [address] Jun, [facility] [address] [id number] [address] [place] [address], [place] [address] May, [facility] [address] [id number] [address] [place] [address], [place] [address] May, [facility] [address] [id number] [address] [place] [address], [place] [address] May, [facility] [address] [id number] [address] [place] [address], [place] [address] May, [facility] [address] [id number] [address] [place] [address], [place] [address] May, [facility] [address] [id number] [address] [place] [address], [place] [address] May, [facility] [address] [id number] [address] [place] [address], [place] [address] May, [facility] [address] [id number] [address] [place] [address], [place] [address] May, [facility] [address] [id number] [address] [place] [address], [place] [address] May, [facility] [address] [id number] [address] [place] [address], [place] [address] 15 May, [address] [facility] [address] [id number] [address] [place] [address], [place] [address] 15 May, 2014 [facility] [address] [id number] [address] [place] [address], [place] [address] Apr, [facility] [address] [id number] [address] [place] [address], [place] [address] Apr, [facility] [address] [id number] [address] [place] [address], [place] [address] 17 Apr, 2014 [facility] [address] [id number] [address] [place] [address], [place] [address] Apr, [facility] [address] [id number] [address] [place] [address], [place] [address] Mar, [facility] [address] [id number] [address] [place] [address], [place] [address] Mar, [facility] [address] [id number] [address] [place] [address], [place] [address] Mar, [facility] [address] [id number] [address] [place] [address], [place] [address] Mar, [facility] [address] [id number] [address] [place] [address], [place] [address] Feb, [facility] [address] [id number] [address] [place] [address], [place] [address] Feb, [facility] [address] [id number] [address] [place] [address], [place] [address] Feb, [facility] [address] [id number] [address] [place] [address], [place] [address] Feb, [facility] [address] [id number] [address] [place] [address], [place] [address] 16 Feb, 2014 [facility] [address] [id number] [address] [place] [address], [place] [address] 16 Feb, 2014 [facility] [address] [id number] [address] [place] [address], [place] [address] Jan, [facility] [address] [id number] [address] [place] [address], [place] [address] Jan, [facility] [address] [id number] [address] [place] [address], [place] [address] Jan, [facility] [address] [id number] [address] [place] [address], [place] [address] Jan, [facility] [address] [id number] [address] [place] [address], [place] [address] Jan, [facility] [address] [id number] [address] [place] [address], [place] [address] Jan, [facility] [address] [id number] [address] [place] [address], [place] [address] Dec, [facility] [address] [id number] [address] [place] [address], [place] [address] Dec, [facility] [address] [id number] [address] [place] [address], [place] [address] Nov, [facility] [address] [id number] [address] [place] [address], [place] [address] Nov, [facility] [address] [id number] [address] [place] [address], [place] [address] Nov, [facility] [address] [id number] [address] [place] [address], [place] [address] Nov, [facility] [address] [id number] [address] [place] [address], [place] [address] Nov, [facility] [address] [id number] [address] [place] [address], [place] [address] Nov, [facility] [address] [id number] [address] [place] [address], [place] [address] Nov, [facility] [address] [id number] [address] [place] [address], [place] [address] October, [facility] [address] [id number] [address] [place] [address], [place] [address] October, [facility] [address] [id number] [address] [place] [address], [place] [address] Sep, [facility] [address] [id number] [address] [place] [address], [place] [address] Sep, [facility] [address] [id number] [address] [place] [address], [place] [address] Sep, [facility] [address] [id number] [address] [place] [address], [place] [address] Sep, [facility] [address] [id number] [facility] [place] [address] 17 Sep, 2013 [facility] [address] [id number] [address] [place] [address], [place] [address] Sep, [facility] [address] [id number] [address] [place] [address], [place] [address] Sep, [facility] [address] [id number] [address] [place] [address], [place] [address] Sep, [facility] [address] [id number] [address] [place] [address], [place] [address] Sep, [facility] [address] [id number] [address] [place] [address], [place] [address] Sep, [facility] [address] [id number] [address] [place] [address], [place] [address] Sep, [facility] [address] [id number] [address] [place] [address], [place] [address] Sep, [facility] [address] [id number] [address] [place] [address], [place] [address] Sep, [facility] [address] [id number] [address] [place] [address], [place] [address] Sep, [facility] [address] [id number] [address] [place] [address], [place] [address] Sep, [facility] [address] [id number] [address] [place] [address], [place] [address] Aug, [facility] [address] [id number] [address] [place] [address], [place] [address] Aug, [facility] [address] [id number] [address] [place] [address], [place] [address] Aug, [facility] [address] [id number] [address] [place] [address], [place] [address] Aug, [facility] [address] [id number] [address] [place] [address], [place] [address] Aug, [facility] [address] [id number] [address] [place] [address], [place] [address] Aug, [facility] [address] [id number] [address] [place] [address], [place] [address] Aug, [facility] [address] [id number] [address] [place] [address], [place] [address] Aug, [facility] [address] [id number] [address] [place] [address], [place] [address] Aug, [facility] [address] [id number] [address] [place] [address], [place] [address] Aug, [facility] [address] [id number] [address] [place] [address], [place] [address] Jun, [facility] [address] [id number] [address] [place] [address], [place] [address] Jun, [facility] [address] [id number] [address] [place] [address], [place] [address] Jun, [facility] [address] [id number] [address] [place] [address], [place] [address] Jun, [facility] [address] [id number] [address] [place] [address], [place] [address] Jun, [facility] [address] [id number] [address] [place] [address], [place] [address] Jun, [facility] [address] [id number] [address] [place] [address], [place] [address] Jun, [facility] [address] [id number] [address] [place] [address], [place] [address] Jun, [facility] [address] [id number] [address] [place] [address], [place] [address] Jun, [facility] [address] [id number] [address] [place] [address], [place] [address] Jun, [facility] [address] [id number] [facility] [place] [address] Jun, [facility] [address] [id number] [facility] [place] [address] Jun, [facility] [address] [id number] [facility] [place] [address] Apr, [facility] [address] [id number] [address] [place] [address], [place] [address] Apr, [facility] [address] [id number] [address] [place] [address], [place] [address] Jan, [facility] [address] [id number] [address] [place] [address], [place] [address] Jan, [facility] [address] [id number] [address] [place] [address], [place] [address] Jan, [facility] [address] [id number] [address] [place] [address], [place] [address] Jan, [facility] [address] [id number] [address] [place] [address], [place] [address] Jan, [facility] [address] [id number] [address] [place] [address], [place] [address] Jan, [facility] [address] [id number] [address] [place] [address], [place] [address] Jan, [facility] [address] [place] [id number] Jan, [facility] [address] [id number] [address] [place] [address], [place] [address] Dec, [facility] [address] [id number] [address] [place] [address], [place] [address] Dec, [facility] [address] [id number] [address] [place] [address], [place] [address] Dec, [facility] [address] [id number] [address] [place] [address], [place] [address] Dec, [facility] [address] [facility] [id number] [address] [place] [address] Dec, [facility] [address] [facility] [id number] [address] [place] [address] Dec, [facility] [address] [facility] [id number] [address] [place] [address] Dec, [facility] [address] [facility] [id number] [address] [place] [address] Nov, [facility] [address] [facility] [id number] [address] [place] [address] Nov, IMMUNIZATIONS No Known Immunizations SOCIAL HISTORY Never Assessed REASON FOR VISIT PLAN OF CARE VITAL SIGNS MEDICATIONS Unknown Medications RESULTS No Results PROCEDURES No Known procedures INSTRUCTIONS MEDICATIONS ADMINISTERED No Known Medications
--- OUTSIDE RECORDS SUMMARY | 2019-07-25 20:26 | XMS REPORT ---
Author Author Ayden Payne Doctor Organization [facility] Address Unknown Phone Unavailable Care Team Providers Care County Supervisor Name Role Phone Migration, Doctor Unavailable Unavailable PROBLEMS Type Condition ICD9-CM Code SAR57-JI Code Onset Dates Condition S tatus SNOMED Code Problem Personal history of fall V15.88 Activ e 808127061 Problem Routine general medical examination at [facility] y V70.0 Active 183857320 Problem Personal history of venous thrombosis and embolism V12.51 Active 771956109 Problem Status of other artificial opening of urinary tract V44.6 Active Problem Suicide and self-inflicted p oisoning by unspecified drug or medicinal substance E950.5 Active Problem Other dyspnea and respiratory abnormalities 786.09 Active 279665760 Problem Dysuria 788.1 Active 01312233 Problem Congestive heart failure, unspecified 428.0 Active 26113459 Problem Other screening breast examination V76.19 Active 59470742 Problem Unspecified hypotension 458.9 Active 37385654 Problem Other specified disorders of bladder 596.89 Active 00995677 Problem Encounter for long-term (current) use of other medications V58.69 Active 704799961 Problem Counseling on substance use and abuse V65.42 Active 656356225 Problem Unspecified myalgia and myositis 729.1 Active 347607800 Problem Pain in soft tissues of limb 729.5 A ctive 09220646 Problem Urinary tract infection, site not specified 599.0 Active 47701851 Problem Pain in joint, lower leg 719.46 Activ e 714174397 Problem Chronic airway obstruction, not elsewhere classified 496 Active 71258432 Problem Neurogenic bladder, NOS 596.54 Active 303383267 Problem Acute sinusitis, unspecified 461.9 A ctive 68230427 Problem Personal history of pulmonary embolism V12.55 Active 378830695 Problem Acute bronchitis 466.0 Active 105 77891 Problem Unspecified hearing loss 389.9 Activ e 87463911 Problem Unspecified otalgia 388.70 Active 79367673 Problem Unspecified hereditary and idiopathic peripheral neuropath y 356.9 Active 632304674 Problem Other and unspecified hyperlipidemia 272.4 Active 31987540 Problem Altered mental status 780.97 Active 805806942 Problem Diabetes mellitus without me ntion of complication, type II or unspecified type, not stated as uncontrolled 250.00 Active 212494684 Problem Shortness of breath 786.05 Active 531073598 Problem Other malaise and fatigue 780.79 Acti ve 814110591 Problem Other chronic pain 338.29 Active 8 4943721 Problem Nondependent tobacco use disorder 305.1 Active 896407801 Problem Amphetamine and other psychostimulant de pendence, 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 Active Problem Obesity, unspecified 278.00 Active 988083948 ALLERGIES No Information ENCOUNTERS Encounter Location Date Diagnosis [facility] [address] [facility] [id number] [address] [place] [address] Sep, [facility] [address] [facility] [id number] [address] [place] [address] Sep, [facility] [address] [facility] [id number] [address] [place] [address] Aug, [facility] [address] [facility] [id number] [address] [place] [address] Aug, [facility] [address] [place] [id number] [address] [place] [address] Aug, [facility] [address] [facility] [id number] [address] [place] [address] Aug, [facility] [address] [facility] [id number] [address] [place] [address] Aug, [facility] [address] [facility] [id number] [address] [place] [address] Aug, [facility] [address] [facility] [id number] [address] [place] [address] Jul, [facility] [address] [facility] [id number] [address] [place] [address] Jul, [facility] [address] [place] [id number] [address] [place] [address] Jul, [facility] [address] [id number] [address] [place] [address], [place] [address] Jul, [facility] [address] [id number] [address] [place] [address], [place] [address] Jul, 2014 [facility] [address] [id number] [address] [place] [address], [place] [address] Jul, 2014 [facility] [address] [id number] [address] [place] [address], [place] [address] Jul, [facility] [address] [id number] [address] [place] [address], [place] [address] Jul, [facility] [address] [id number] [address] [place] [address], [place] [address] Jul, [facility] [address] [id number] [address] [place] [address], [place] [address] Jun, [facility] [address] [id number] [address] [place] [address], [place] [address] Jun, [facility] [address] [id number] [address] [place] [address], [place] [address] Jun, [facility] [address] [id number] [address] [place] [address], [place] [address] Jun, [facility] [address] [id number] [address] [place] [address], [place] [address] Jun, [facility] [address] [id number] [address] [place] [address] Jun, [facility] [address] [id number] [address] [place] [address] Jun, [facility] [address] [id number] [address] [place] [address] Jun, [facility] [address] [id number] [address] [place] [address] Jun, [facility] [address] [id number] [address] [place] [address], [place] [address] Jun, [facility] [address] [id number] [address] [place] [address], [place] [address] May, [facility] [address] [id number] [address] [place] [address], [place] [address] May, [facility] [address] [id number] [address] [place] [address], [place] [address] May, [facility] [address] [id number] [address] [place] [address], [place] [address] May, [facility] [address] [id number] [address] [place] [address], [place] [address] May, [facility] [address] [id number] [address] [place] [address], [place] [address] May, [facility] [address] [id number] [address] [place] [address], [place] [address] May, [facility] [address] [id number] [address] [place] [address], [place] [address] May, [facility] [address] [id number] [address] [place] [address], [place] [address] May, [facility] [address] [id number] [address] [place] [address], [place] [address] 15 May, 2014 [facility] [address] [id number] [address] [place] [address], [place] [address] 15 May, 2014 [facility] [address] [id number] [address] [place] [address], [place] [address] Apr, [facility] [address] [id number] [address] [place] [address], [place] [address] Apr, [facility] [address] [id number] [address] [place] [address], [place] [address] 17 Apr, 2014 [facility] [address] [id number] [address] [place] [address], [place] [address] Apr, [facility] [address] [id number] [address] [place] [address], [place] [address] Mar, [facility] [address] [id number] [address] [place] [address], [place] [address] Mar, [facility] [address] [id number] [address] [place] [address], [place] [address] Mar, [facility] [address] [id number] [address] [place] [address], [place] [address] Mar, [facility] [address] [id number] [address] [place] [address], [place] [address] Feb, [facility] [address] [id number] [address] [place] [address], [place] [address] Feb, [facility] [address] [id number] [address] [place] [address], [place] [address] Feb, [facility] [address] [id number] [address] [place] [address], [place] [address] Feb, [facility] [address] [id number] [address] [place] [address], [place] [address] 16 Feb, 2014 [facility] [address] [id number] [address] [place] [address], [place] [address] 16 Feb, 2014 [facility] [address] [id number] [address] [place] [address], [place] [address] Jan, [facility] [address] [id number] [address] [place] [address], [place] [address] Jan, [facility] [address] [id number] [address] [place] [address], [place] [address] Jan, [facility] [address] [id number] [address] [place] [address], [place] [address] Jan, [facility] [address] [id number] [address] [place] [address], [place] [address] Jan, [facility] [address] [id number] [address] [place] [address], [place] [address] Jan, [facility] [address] [id number] [address] [place] [address], [place] [address] Dec, [facility] [address] [id number] [address] [place] [address], [place] [address] Dec, [facility] [address] [id number] [address] [place] [address], [place] [address] Nov, [facility] [address] [id number] [address] [place] [address], [place] [address] Nov, [facility] [address] [id number] [address] [place] [address], [place] [address] Nov, [facility] [address] [id number] [address] [place] [address], [place] [address] Nov, [facility] [address] [id number] [address] [place] [address], [place] [address] Nov, [facility] [address] [id number] [address] [place] [address], [place] [address] Nov, [facility] [address] [id number] [address] [place] [address], [place] [address] Nov, [facility] [address] [id number] [address] [place] [address], [place] [address] October, [facility] [address] [id number] [address] [place] [address], [place] [address] October, [facility] [address] [id number] [address] [place] [address], [place] [address] Sep, [facility] [address] [id number] [address] [place] [address], [place] [address] Sep, [facility] [address] [id number] [address] [place] [address], [place] [address] Sep, [facility] [address] [id number] [address] [place] [address], [place] [address] Sep, [facility] [address] [id number] [facility] [place] [address] 17 Sep, 2013 [facility] [address] [id number] [address] [place] [address], [place] [address] Sep, [facility] [address] [id number] [address] [place] [address], [place] [address] Sep, [facility] [address] [id number] [address] [place] [address], [place] [address] Sep, [facility] [address] [id number] [address] [place] [address], [place] [address] Sep, [facility] [address] [id number] [address] [place] [address], [place] [address] Sep, [facility] [address] [id number] [address] [place] [address], [place] [address] Sep, [facility] [address] [id number] [address] [place] [address], [place] [address] Sep, [facility] [address] [id number] [address] [place] [address], [place] [address] Sep, [facility] [address] [id number] [address] [place] [address], [place] [address] Sep, [facility] [address] [id number] [address] [place] [address], [place] [address] Sep, [facility] [address] [id number] [address] [place] [address], [place] [address] Aug, [facility] [address] [id number] [address] [place] [address], [place] [address] Aug, [facility] [address] [id number] [address] [place] [address], [place] [address] Aug, [facility] [address] [id number] [address] [place] [address], [place] [address] Aug, [facility] [address] [id number] [address] [place] [address], [place] [address] Aug, [facility] [address] [id number] [address] [place] [address], [place] [address] Aug, [facility] [address] [id number] [address] [place] [address], [place] [address] Aug, [facility] [address] [id number] [address] [place] [address], [place] [address] Aug, [facility] [address] [id number] [address] [place] [address], [place] [address] Aug, [facility] [address] [id number] [address] [place] [address], [place] [address] Aug, [facility] [address] [id number] [address] [place] [address], [place] [address] Jun, [facility] [address] [id number] [address] [place] [address], [place] [address] Jun, [facility] [address] [id number] [address] [place] [address], [place] [address] Jun, [facility] [address] [id number] [address] [place] [address], [place] [address] Jun, [facility] [address] [id number] [address] [place] [address], [place] [address] Jun, [facility] [address] [id number] [address] [place] [address], [place] [address] Jun, [facility] [address] [id number] [address] [place] [address], [place] [address] Jun, [facility] [address] [id number] [address] [place] [address], [place] [address] Jun, [facility] [address] [id number] [address] [place] [address], [place] [address] Jun, [facility] [address] [id number] [address] [place] [address], [place] [address] Jun, [facility] [address] [id number] [facility] [place] [address] Jun, [facility] [address] [id number] [facility] [place] [address] Jun, [facility] [address] [id number] [facility] [place] [address] Apr, [facility] [address] [id number] [address] [place] [address], [place] [address] Apr, [facility] [address] [id number] [address] [place] [address], [place] [address] Jan, [facility] [address] [id number] [address] [place] [address], [place] [address] Jan, [facility] [address] [id number] [address] [place] [address], [place] [address] Jan, [facility] [address] [id number] [address] [place] [address], [place] [address] Jan, [facility] [address] [id number] [address] [place] [address], [place] [address] Jan, [facility] [address] [id number] [address] [place] [address], [place] [address] Jan, [facility] [address] [id number] [address] [place] [address], [place] [address] Jan, [facility] [address] [place] [id number] Jan, [facility] [address] [id number] [address] [place] [address], [place] [address] Dec, [facility] [address] [id number] [address] [place] [address], [place] [address] Dec, [facility] [address] [id number] [address] [place] [address], [place] [address] Dec, [facility] [address] [id number] [address] [place] [address], [place] [address] Dec, [facility] [address] [facility] [id number] [address] [place] [address] Dec, [facility] [address] [facility] [id number] [address] [place] [address] Dec, [facility] [address] [facility] [id number] [address] [place] [address] Dec, [facility] [address] [facility] [id number] [address] [place] [address] Nov, [facility] [address] [facility] [id number] [address] [place] [address] Nov, IMMUNIZATIONS No Known Immunizations SOCIAL HISTORY Never Assessed REASON FOR VISIT EMR-[facility] [place] PLAN OF CARE VITAL SIGNS MEDICATIONS Unknown Medications RESULTS No Results PROCEDURES No Known procedures INSTRUCTIONS MEDICATIONS ADMINISTERED No Known Medications
--- OUTSIDE RECORDS SUMMARY | 2019-07-25 20:26 | XMS REPORT ---
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 Active Problem Suicide and self-inflicted p oisoning by unspecified drug or medicinal substance E950.5 Active Problem Other dyspnea and respiratory abnormalities 786.09 Active 610609108 Problem Dysuria 788.1 Active 01837693 Problem Congestive heart failure, unspecified 428.0 Active 25928246 Problem Other screening breast examination V76.19 Active 77644029 Problem Unspecified hypotension 458.9 Active 36318265 Problem Other specified disorders of bladder 596.89 Active 40631369 Problem Encounter for long-term (current) use of other medications V58.69 Active 688070174 Problem Counseling on substance use and abuse V65.42 Active 874307354 Problem Unspecified myalgia and myositis 729.1 Active 359435366 Problem Pain in soft tissues of limb 729.5 A ctive 14318205 Problem Urinary tract infection, site not specified 599.0 Active 14784751 Problem Pain in joint, lower leg 719.46 Activ e 834378971 Problem Chronic airway obstruction, not elsewhere classified 496 Active 86230763 Problem Neurogenic bladder, NOS 596.54 Active 724677860 Problem Acute sinusitis, unspecified 461.9 A ctive 45283329 Problem Personal history of pulmonary embolism V12.55 Active 044396091 Problem Acute bronchitis 466.0 Active 105 24696 Problem Unspecified hearing loss 389.9 Activ e 40847610 Problem Unspecified otalgia 388.70 Active 31570341 Problem Unspecified hereditary and idiopathic peripheral neuropath y 356.9 Active 685186330 Problem Other and unspecified hyperlipidemia 272.4 Active 96878096 Problem Altered mental status 780.97 Active 211200799 Problem Diabetes mellitus without me ntion of complication, type II or unspecified type, not stated as uncontrolled 250.00 Active 491214047 Problem Shortness of breath 786.05 Active 603967045 Problem Other malaise and fatigue 780.79 Acti ve 789908359 Problem Other chronic pain 338.29 Active 8 5283732 Problem Nondependent tobacco use disorder 305.1 Active 206237578 Problem Amphetamine and other psychostimulant de pendence, 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 [id number] [address] [place] [address] Sep, [facility] [address] [facility] [id number] [address] [place] [address] Sep, [facility] [address] [facility] [id number] [address] [place] [address] Aug, [facility] [address] [facility] [id number] [address] [place] [address] Aug, [facility] [address] [facility] [id number] [address] [place] [address] Aug, [facility] [address] [facility] [id number] [address] [place] [address] Aug, [facility] [address] [id number] [address] [place] [address] Aug, [facility] [address] [facility] [id number] [address] [place] [address] Aug, [facility] [address] [facility] [id number] [address] [place] [address] Jul, [facility] [address] [id number] [address] [place] [address], [place] [address] 24 Jul, 2014 [facility] [address] [id number] [address] [place] [address], [place] [address] Jul, 2014 [facility] [address] [id number] [address] [place] [address], [place] [address] 20 Jul, 2014 [facility] [address] [id number] [address] [place] [address], [place] [address] Jul, 2014 [facility] [address] [id number] [address] [place] [address], [place] [address] Jul, 2014 [facility] [address] [id number] [address] [place] [address], [place] [address] Jul, 2014 [facility] [address] [id number] [address] [place] [address], [place] [address] Jul, [facility] [address] [id number] [address] [place] [address], [place] [address] Jul, [facility] [address] [id number] [address] [place] [address], [place] [address] Jun, [facility] [address] [id number] [address] [place] [address], [place] [address] Jun, [facility] [address] [id number] [address] [place] [address], [place] [address] Jun, [facility] [address] [id number] [address] [place] [address], [place] [address] Jun, [facility] [address] [id number] [address] [place] [address], [place] [address] Jun, [facility] [address] [id number] [address] [place] [address], [place] [address] Jun, [facility] [address] [id number] [address] [place] [address], [place] [address] Jun, [facility] [address] [id number] [address] [place] [address], [place] [address] Jun, [facility] [address] [id number] [address] [place] [address], [place] [address] Jun, [facility] [address] [id number] [address] [place] [address], [place] [address] Jun, [facility] [address] [id number] [address] [place] [address], [place] [address] 30 May, 2014 [facility] [address] [id number] [address] [place] [address], [place] [address] May, [facility] [address] [id number] [address] [place] [address], [place] [address] May, [facility] [address] [id number] [address] [place] [address], [place] [address] May, [facility] [address] [id number] [address] [place] [address], [place] [address] May, [facility] [address] [id number] [address] [place] [address], [place] [address] May, [facility] [address] [id number] [address] [place] [address], [place] [address] May, [facility] [address] [id number] [address] [place] [address], [place] [address] May, [facility] [address] [id number] [address] [place] [address], [place] [address] 18 May, 2014 [facility] [address] [id number] [address] [place] [address], [place] [address] 15 May, 2014 [facility] [address] [id number] [address] [place] [address], [place] [address] 15 May, 2014 [facility] [address] [id number] [address] [place] [address], [place] [address] 17 Apr, 2014 [facility] [address] [id number] [address] [place] [address], [place] [address] Apr, [facility] [address] [id number] [address] [place] [address], [place] [address] Apr, [facility] [address] [id number] [address] [place] [address], [place] [address] Apr, [facility] [address] [id number] [address] [place] [address], [place] [address] Mar, [facility] [address] [id number] [address] [place] [address], [place] [address] Mar, [facility] [address] [id number] [address] [place] [address], [place] [address] Mar, [facility] [address] [id number] [address] [place] [address], [place] [address] Mar, [facility] [address] [id number] [address] [place] [address], [place] [address] Feb, [facility] [address] [id number] [address] [place] [address], [place] [address] 23 Feb, 2014 [facility] [address] [id number] [address] [place] [address], [place] [address] Feb, [facility] [address] [id number] [address] [place] [address], [place] [address] 22 Feb, 2014 [facility] [address] [id number] [address] [place] [address], [place] [address] 16 Feb, 2014 [facility] [address] [id number] [address] [place] [address], [place] [address] 16 Feb, 2014 [facility] [address] [id number] [address] [place] [address], [place] [address] Jan, [facility] [address] [id number] [address] [place] [address], [place] [address] Jan, [facility] [address] [id number] [address] [place] [address], [place] [address] Jan, [facility] [address] [id number] [address] [place] [address], [place] [address] Jan, [facility] [address] [id number] [address] [place] [address], [place] [address] Jan, [facility] [address] [id number] [address] [place] [address], [place] [address] Jan, [facility] [address] [id number] [address] [place] [address], [place] [address] Dec, [facility] [address] [id number] [address] [place] [address], [place] [address] Dec, [facility] [address] [id number] [address] [place] [address], [place] [address] Nov, [facility] [address] [id number] [address] [place] [address], [place] [address] Nov, [facility] [address] [id number] [address] [place] [address], [place] [address] Nov, [facility] [address] [id number] [address] [place] [address], [place] [address] Nov, [facility] [address] [id number] [address] [place] [address], [place] [address] Nov, [facility] [address] [id number] [address] [place] [address], [place] [address] Nov, [facility] [address] [id number] [address] [place] [address], [place] [address] Nov, [facility] [address] [id number] [address] [place] [address], [place] [address] October, [facility] [address] [id number] [address] [place] [address], [place] [address] October, [facility] [address] [id number] [address] [place] [address], [place] [address] Sep, [facility] [address] [id number] [address] [place] [address], [place] [address] Sep, [facility] [address] [id number] [address] [place] [address], [place] [address] Sep, [facility] [address] [id number] [address] [place] [address], [place] [address] Sep, [facility] [address] [id number] [address] [place] [address], [place] [address] 17 Sep, 2013 [facility] [address] [id number] [address] [place] [address], [place] [address] 16 Sep, 2013 [facility] [address] [id number] [address] [place] [address], [place] [address] 16 Sep, 2013 [facility] [address] [id number] [address] [place] [address], [place] [address] Sep, [facility] [address] [id number] [address] [place] [address], [place] [address] Sep, [facility] [address] [id number] [address] [place] [address], [place] [address] Sep, [facility] [address] [id number] [address] [place] [address], [place] [address] Sep, [facility] [address] [id number] [address] [place] [address], [place] [address] Sep, [facility] [address] [id number] [address] [place] [address], [place] [address] Sep, [facility] [address] [id number] [address] [place] [address], [place] [address] Sep, [facility] [address] [id number] [address] [place] [address], [place] [address] Sep, [facility] [address] [id number] [address] [place] [address], [place] [address] 24 Aug, 2013 [facility] [address] [id number] [address] [place] [address], [place] [address] 24 Aug, 2013 [facility] [address] [id number] [address] [place] [address], [place] [address] Aug, [facility] [address] [id number] [facility] [place] [address] Aug, [facility] [address] [id number] [facility] [place] [address] Aug, [facility] [address] [id number] [facility] [place] [address] Aug, [facility] [address] [id number] [address] [place] [address], [place] [address] Aug, [facility] [address] [id number] [facility] [place] [address] Aug, [facility] [address] [id number] [address] [place] [address], [place] [address] Aug, [facility] [address] [id number] [address] [place] [address], [place] [address] Aug, [facility] [address] [id number] [address] [place] [address], [place] [address] Jun, [facility] [address] [id number] [address] [place] [address], [place] [address] Jun, [facility] [address] [id number] [address] [place] [address], [place] [address] Jun, [facility] [address] [id number] [address] [place] [address], [place] [address] Jun, [facility] [address] [id number] [address] [place] [address], [place] [address] Jun, [facility] [address] [id number] [address] [place] [address], [place] [address] Jun, [facility] [address] [id number] [address] [place] [address], [place] [address] Jun, [facility] [address] [id number] [address] [place] [address], [place] [address] Jun, [facility] [address] [id number] [address] [place] [address], [place] [address] Jun, [facility] [address] [id number] [address] [place] [address], [place] [address] Jun, [facility] [address] [id number] [address] [place] [address], [place] [address] Jun, [facility] [address] [id number] [address] [place] [address], [place] [address] Jun, [facility] [address] [id number] [address] [place] [address], [place] [address] Apr, [facility] [address] [id number] [address] [place] [address], [place] [address] Apr, [facility] [address] [id number] [address] [place] [address], [place] [address] Jan, [facility] [address] [id number] [address] [place] [address], [place] [address] Jan, [facility] [address] [id number] [address] [place] [address], [place] [address] Jan, [facility] [address] [id number] [address] [place] [address], [place] [address] Jan, [facility] [address] [id number] [address] [place] [address], [place] [address] Jan, [facility] [address] [id number] [address] [place] [address], [place] [address] Jan, [facility] [address] [id number] [address] [place] [address], [place] [address] Jan, [facility] [address] [place] [id number] Jan, [facility] [address] [id number] [address] [place] [address], [place] [address] Dec, [facility] [address] [id number] [address] [place] [address], [place] [address] Dec, [facility] [address] [id number] [address] [place] [address] Dec, [facility] [address] [id number] [address] [place] [address] Dec, [facility] [address] [id number] [address] [place] [address] Dec, [facility] [address] [facility] [id number] [address] [place] [address] Dec, [facility] [address] [id number] [address] [place] [address] Dec, [facility] [address] [id number] [address] [place] [address] Nov, [facility] [address] [facility] [id number] [address] [place] [address] Nov, IMMUNIZATIONS No Known Immunizations SOCIAL HISTORY Never Assessed REASON FOR VISIT EMR-[facility] [place] PLAN OF CARE VITAL SIGNS MEDICATIONS Medication Instructions Dosage Frequency Start Date End Date Duration S tatus Lyrica 150 mg 1 capsule by Oral route 3 times per day Aug, Active PredniSONE 10 mg 1 Tablet 2 times per day for 5 days Take at 8 am and noon. Do not take after 3 pm Jul, Active trazodone 300 mg take 1 tablet by Ora l route 1 time per day with food at bedtime Nov, Active Fenofibrate 160 mg 1 Tablet 1 time per day Jun, Active Omeprazole 20 mg take 1 capsule (20 m g) by oral route once daily before a meal Jun, Active Latuda 20 mg 1 tablet 1 time per day at hs Jul, Active Effexor XR 150 mg 1 capsule by Oral ro [place] 1 time per day take with dinner; take with 75mg May, Active atorvastatin 80 mg take 1 tablet by Ora l route at bedtime 1 time per day Avoid grapefruit juice Jul, Activ e Latuda 40 mg take 1 tablet by Ora l route with food (at least 350 calories) 1 time per day at bedtime Jan, Acti ve Lancets - 1 time per day Nov, Ac tive Combivent Respimat 20-100 mcg/actuation inhale 1 puff by Inhalation route 4 times per day not to exceed 6 puffs in 24hrs Mar, Active Latuda 80 mg take 1 tablet by Ora l route with food (at least 350 calories) 1 time per day q pm Dec, Active PredniSONE 5 mg 1 Tablet 2 times per day for 5 days Take at 8 am and noon. Do not take after 3 pm Jun, Active Imitrex 100 mg take 1 tablet (100 m g) by oral route once with fluids as early as possible after the onset of a migraine attack;may repeat after 2 hours if headache returns, not to exceed 200mg in 24hrs Dec, Active metformin 1,000 mg take 1 tablet by Oral route 2 times per day Jan, Active MethylPREDNISolone 4 mg by Oral route ev ana lilia day for 6 days as directed per dose pack Jun, Active Loratadine 10 mg take 1 tablet (10 mg) by oral route o nce daily May, Active Bactrim DS 800-160 mg 1 tablet by Oral route 2 times p er day for 7 day(s) Aug, Active Augmentin 875-125 mg 1 tablet by Oral route 2 times pe r day for 10 day(s) Jun, Active Topiramate 100 mg take 1-2 tablets by Oral route 4 times per day 1 tabs Q am; 1 tab @ 1600; 5 tabs q hs Jan, Ac tive Cipro 500 mg take 1 tablet (500 m g) by oral route 2 times per day for 10 day(s) Jan, Active Albuterol Sulfate 2.5 mg /3 mL (0.083 %) 1 Each by Inhalation route every 4 hours for cough and wheeze PRN for wheezing or cough Jul, Active Advair Diskus 500-50 mcg/dose 1 puffs by Inhalation ro [place] 2 times per day Mar, Active RESULTS No Results PROCEDURES No Known procedures INSTRUCTIONS MEDICATIONS ADMINISTERED No Known Medications
--- OUTSIDE RECORDS SUMMARY | 2019-07-25 20:26 | XMS REPORT ---
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 Active Problem Suicide and self-inflicted p oisoning by unspecified drug or medicinal substance E950.5 Active Problem Other dyspnea and respiratory abnormalities 786.09 Active 034663554 Problem Dysuria 788.1 Active 80469666 Problem Congestive heart failure, unspecified 428.0 Active 25093763 Problem Other screening breast examination V76.19 Active 87210690 Problem Unspecified hypotension 458.9 Active 57170011 Problem Other specified disorders of bladder 596.89 Active 42892841 Problem Encounter for long-term (current) use of other medications V58.69 Active 032953676 Problem Counseling on substance use and abuse V65.42 Active 733643213 Problem Unspecified myalgia and myositis 729.1 Active 472233831 Problem Pain in soft tissues of limb 729.5 A ctive 75769904 Problem Urinary tract infection, site not specified 599.0 Active 64195096 Problem Pain in joint, lower leg 719.46 Activ e 687607431 Problem Chronic airway obstruction, not elsewhere classified 496 Active 30526677 Problem Neurogenic bladder, NOS 596.54 Active 673501576 Problem Acute sinusitis, unspecified 461.9 A ctive 36002622 Problem Personal history of pulmonary embolism V12.55 Active 183848545 Problem Acute bronchitis 466.0 Active 105 99116 Problem Unspecified hearing loss 389.9 Activ e 59897400 Problem Unspecified otalgia 388.70 Active 02796799 Problem Unspecified hereditary and idiopathic peripheral neuropath y 356.9 Active 733012226 Problem Other and unspecified hyperlipidemia 272.4 Active 59391559 Problem Altered mental status 780.97 Active 733870364 Problem Diabetes mellitus without me ntion of complication, type II or unspecified type, not stated as uncontrolled 250.00 Active 509208516 Problem Shortness of breath 786.05 Active 693132388 Problem Other malaise and fatigue 780.79 Acti ve 698882033 Problem Other chronic pain 338.29 Active 8 5805656 Problem Nondependent tobacco use disorder 305.1 Active 704861676 Problem Amphetamine and other psychostimulant de pendence, 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 Active Problem Obesity, unspecified 278.00 Active 635357008 ALLERGIES No Information ENCOUNTERS Encounter Location Date Diagnosis [facility] [address] [facility] [id number] [address] [place] [address] Sep, [facility] [address] [facility] [id number] [address] [place] [address] Sep, [facility] [address] [facility] [id number] [address] [place] [address] Aug, [facility] [address] [facility] [id number] [address] [place] [address] Aug, [facility] [address] [id number] [address] [place] [address] Aug, [facility] [address] [id number] [address] [place] [address] Aug, [facility] [address] [facility] [id number] [address] [place] [address] Aug, [facility] [address] [facility] [id number] [address] [place] [address] Aug, [facility] [address] [facility] [id number] [address] [place] [address] Jul, [facility] [address] [facility] [id number] [address] [place] [address] Jul, [facility] [address] [id number] [address] [place] [address] Jul, [facility] [address] [id number] [address] [place] [address], [place] [address] Jul, [facility] [address] [id number] [address] [place] [address], [place] [address] Jul, 2014 [facility] [address] [id number] [address] [place] [address], [place] [address] Jul, 2014 [facility] [address] [id number] [address] [place] [address], [place] [address] Jul, [facility] [address] [id number] [address] [place] [address], [place] [address] Jul, [facility] [address] [id number] [address] [place] [address], [place] [address] Jul, [facility] [address] [id number] [address] [place] [address], [place] [address] Jun, [facility] [address] [id number] [address] [place] [address], [place] [address] Jun, [facility] [address] [id number] [address] [place] [address], [place] [address] Jun, [facility] [address] [id number] [address] [place] [address], [place] [address] Jun, [facility] [address] [id number] [address] [place] [address], [place] [address] Jun, [facility] [address] [id number] [address] [place] [address] Jun, [facility] [address] [id number] [address] [place] [address] Jun, [facility] [address] [id number] [address] [place] [address] Jun, [facility] [address] [id number] [address] [place] [address] Jun, [facility] [address] [id number] [address] [place] [address], [place] [address] Jun, [facility] [address] [id number] [address] [place] [address], [place] [address] May, [facility] [address] [id number] [address] [place] [address], [place] [address] May, [facility] [address] [id number] [address] [place] [address], [place] [address] May, [facility] [address] [id number] [address] [place] [address], [place] [address] May, [facility] [address] [id number] [address] [place] [address], [place] [address] May, [facility] [address] [id number] [address] [place] [address], [place] [address] May, [facility] [address] [id number] [address] [place] [address], [place] [address] May, [facility] [address] [id number] [address] [place] [address], [place] [address] May, [facility] [address] [id number] [address] [place] [address], [place] [address] May, [facility] [address] [id number] [address] [place] [address], [place] [address] 15 May, 2014 [facility] [address] [id number] [address] [place] [address], [place] [address] 15 May, 2014 [facility] [address] [id number] [address] [place] [address], [place] [address] Apr, [facility] [address] [id number] [address] [place] [address], [place] [address] Apr, [facility] [address] [id number] [address] [place] [address], [place] [address] 17 Apr, 2014 [facility] [address] [id number] [address] [place] [address], [place] [address] Apr, [facility] [address] [id number] [address] [place] [address], [place] [address] Mar, [facility] [address] [id number] [address] [place] [address], [place] [address] Mar, [facility] [address] [id number] [address] [place] [address], [place] [address] Mar, [facility] [address] [id number] [address] [place] [address], [place] [address] Mar, [facility] [address] [id number] [address] [place] [address], [place] [address] Feb, [facility] [address] [id number] [address] [place] [address], [place] [address] Feb, [facility] [address] [id number] [address] [place] [address], [place] [address] Feb, [facility] [address] [id number] [address] [place] [address], [place] [address] Feb, [facility] [address] [id number] [address] [place] [address], [place] [address] 16 Feb, 2014 [facility] [address] [id number] [address] [place] [address], [place] [address] 16 Feb, 2014 [facility] [address] [id number] [address] [place] [address], [place] [address] Jan, [facility] [address] [id number] [address] [place] [address], [place] [address] Jan, [facility] [address] [id number] [address] [place] [address], [place] [address] Jan, [facility] [address] [id number] [address] [place] [address], [place] [address] Jan, [facility] [address] [id number] [address] [place] [address], [place] [address] Jan, [facility] [address] [id number] [address] [place] [address], [place] [address] Jan, [facility] [address] [id number] [address] [place] [address], [place] [address] Dec, [facility] [address] [id number] [address] [place] [address], [place] [address] Dec, [facility] [address] [id number] [address] [place] [address], [place] [address] Nov, [facility] [address] [id number] [address] [place] [address], [place] [address] Nov, [facility] [address] [id number] [address] [place] [address], [place] [address] Nov, [facility] [address] [id number] [address] [place] [address], [place] [address] Nov, [facility] [address] [id number] [address] [place] [address], [place] [address] Nov, [facility] [address] [id number] [address] [place] [address], [place] [address] Nov, [facility] [address] [id number] [address] [place] [address], [place] [address] Nov, [facility] [address] [id number] [address] [place] [address], [place] [address] October, [facility] [address] [id number] [address] [place] [address], [place] [address] October, [facility] [address] [id number] [address] [place] [address], [place] [address] Sep, [facility] [address] [id number] [address] [place] [address], [place] [address] Sep, [facility] [address] [id number] [address] [place] [address], [place] [address] Sep, [facility] [address] [id number] [address] [place] [address], [place] [address] Sep, [facility] [address] [id number] [facility] [place] [address] 17 Sep, 2013 [facility] [address] [id number] [address] [place] [address], [place] [address] Sep, [facility] [address] [id number] [address] [place] [address], [place] [address] Sep, [facility] [address] [id number] [address] [place] [address], [place] [address] Sep, [facility] [address] [id number] [address] [place] [address], [place] [address] Sep, [facility] [address] [id number] [address] [place] [address], [place] [address] Sep, [facility] [address] [id number] [address] [place] [address], [place] [address] Sep, [facility] [address] [id number] [address] [place] [address], [place] [address] Sep, [facility] [address] [id number] [address] [place] [address], [place] [address] Sep, [facility] [address] [id number] [address] [place] [address], [place] [address] Sep, [facility] [address] [id number] [address] [place] [address], [place] [address] Sep, [facility] [address] [id number] [address] [place] [address], [place] [address] Aug, [facility] [address] [id number] [address] [place] [address], [place] [address] Aug, [facility] [address] [id number] [address] [place] [address], [place] [address] Aug, [facility] [address] [id number] [address] [place] [address], [place] [address] Aug, [facility] [address] [id number] [address] [place] [address], [place] [address] Aug, [facility] [address] [id number] [address] [place] [address], [place] [address] Aug, [facility] [address] [id number] [address] [place] [address], [place] [address] Aug, [facility] [address] [id number] [address] [place] [address], [place] [address] Aug, [facility] [address] [id number] [address] [place] [address], [place] [address] Aug, [facility] [address] [id number] [address] [place] [address], [place] [address] Aug, [facility] [address] [id number] [address] [place] [address], [place] [address] Jun, [facility] [address] [id number] [address] [place] [address], [place] [address] Jun, [facility] [address] [id number] [address] [place] [address], [place] [address] Jun, [facility] [address] [id number] [address] [place] [address], [place] [address] Jun, [facility] [address] [id number] [address] [place] [address], [place] [address] Jun, [facility] [address] [id number] [address] [place] [address], [place] [address] Jun, [facility] [address] [id number] [address] [place] [address], [place] [address] Jun, [facility] [address] [id number] [address] [place] [address], [place] [address] Jun, [facility] [address] [id number] [address] [place] [address], [place] [address] Jun, [facility] [address] [id number] [address] [place] [address], [place] [address] Jun, [facility] [address] [id number] [facility] [place] [address] Jun, [facility] [address] [id number] [facility] [place] [address] Jun, [facility] [address] [id number] [facility] [place] [address] Apr, [facility] [address] [id number] [address] [place] [address], [place] [address] Apr, [facility] [address] [id number] [address] [place] [address], [place] [address] Jan, [facility] [address] [id number] [address] [place] [address], [place] [address] Jan, [facility] [address] [id number] [address] [place] [address], [place] [address] Jan, [facility] [address] [id number] [address] [place] [address], [place] [address] Jan, [facility] [address] [id number] [address] [place] [address], [place] [address] Jan, [facility] [address] [id number] [address] [place] [address], [place] [address] Jan, [facility] [address] [id number] [address] [place] [address], [place] [address] Jan, [facility] [address] [place] [id number] Jan, [facility] [address] [id number] [address] [place] [address], [place] [address] Dec, [facility] [address] [id number] [address] [place] [address], [place] [address] Dec, [facility] [address] [id number] [address] [place] [address], [place] [address] Dec, [facility] [address] [id number] [address] [place] [address], [place] [address] Dec, [facility] [address] [id number] [address] [place] [address] Dec, [facility] [address] [id number] [address] [place] [address] Dec, [facility] [address] [id number] [address] [place] [address] Dec, [facility] [address] [id number] [address] [place] [address] Nov, [facility] [address] [id number] [address] [place] [address] Nov, IMMUNIZATIONS No Known Immunizations SOCIAL HISTORY Never Assessed REASON FOR VISIT EMR-[facility] PLAN OF CARE VITAL SIGNS MEDICATIONS Unknown Medications RESULTS No Results PROCEDURES No Known procedures INSTRUCTIONS MEDICATIONS ADMINISTERED No Known Medications
--- OUTSIDE RECORDS SUMMARY | 2019-07-25 20:26 | XMS REPORT ---
Author Author Ayden Payne Doctor Organization [facility] Address Unknown Phone Unavailable Care Team Providers Care Health Education Director Name Role Phone Migration, Doctor Unavailable Unavailable PROBLEMS Type Condition ICD9-CM Code EII16-IB Code Onset Dates Condition S tatus SNOMED Code Problem Personal history of fall V15.88 Activ e 513361651 Problem Routine general medical examination at [facility] y V70.0 Active 194274247 Problem Personal history of venous thrombosis and embolism V12.51 Active 118575565 Problem Status of other artificial opening of urinary tract V44.6 Active Problem Suicide and self-inflicted p oisoning by unspecified drug or medicinal substance E950.5 Active Problem Other dyspnea and respiratory abnormalities 786.09 Active 636642840 Problem Dysuria 788.1 Active 69233637 Problem Congestive heart failure, unspecified 428.0 Active 19621696 Problem Other screening breast examination V76.19 Active 45661337 Problem Unspecified hypotension 458.9 Active 67394396 Problem Other specified disorders of bladder 596.89 Active 58311181 Problem Encounter for long-term (current) use of other medications V58.69 Active 190403843 Problem Counseling on substance use and abuse V65.42 Active 871128625 Problem Unspecified myalgia and myositis 729.1 Active 703745255 Problem Pain in soft tissues of limb 729.5 A ctive 45532457 Problem Urinary tract infection, site not specified 599.0 Active 06802912 Problem Pain in joint, lower leg 719.46 Activ e 766161101 Problem Chronic airway obstruction, not elsewhere classified 496 Active 25163265 Problem Neurogenic bladder, NOS 596.54 Active 198370222 Problem Acute sinusitis, unspecified 461.9 A ctive 24612034 Problem Personal history of pulmonary embolism V12.55 Active 207082454 Problem Acute bronchitis 466.0 Active 105 85968 Problem Unspecified hearing loss 389.9 Activ e 21379156 Problem Unspecified otalgia 388.70 Active 20846386 Problem Unspecified hereditary and idiopathic peripheral neuropath y 356.9 Active 518430898 Problem Other and unspecified hyperlipidemia 272.4 Active 66265934 Problem Altered mental status 780.97 Active 899472062 Problem Diabetes mellitus without me ntion of complication, type II or unspecified type, not stated as uncontrolled 250.00 Active 172811936 Problem Shortness of breath 786.05 Active 885766359 Problem Other malaise and fatigue 780.79 Acti ve 145359572 Problem Other chronic pain 338.29 Active 8 2047863 Problem Nondependent tobacco use disorder 305.1 Active 614955287 Problem Amphetamine and other psychostimulant de pendence, 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 Active Problem Obesity, unspecified 278.00 Active 205059934 ALLERGIES No Information ENCOUNTERS Encounter Location Date Diagnosis [facility] [address] [facility] [id number] [address] [place] [address] Sep, [facility] [address] [facility] [id number] [address] [place] [address] Sep, [facility] [address] [facility] [id number] [address] [place] [address] Aug, [facility] [address] [facility] [id number] [address] [place] [address] Aug, [facility] [address] [place] [id number] [address] [place] [address] Aug, [facility] [address] [facility] [id number] [address] [place] [address] Aug, [facility] [address] [facility] [id number] [address] [place] [address] Aug, [facility] [address] [facility] [id number] [address] [place] [address] Aug, [facility] [address] [facility] [id number] [address] [place] [address] Jul, [facility] [address] [facility] [id number] [address] [place] [address] Jul, [facility] [address] [place] [id number] [address] [place] [address] Jul, [facility] [address] [id number] [address] [place] [address], [place] [address] Jul, [facility] [address] [id number] [address] [place] [address], [place] [address] Jul, 2014 [facility] [address] [id number] [address] [place] [address], [place] [address] Jul, 2014 [facility] [address] [id number] [address] [place] [address], [place] [address] Jul, [facility] [address] [id number] [address] [place] [address], [place] [address] Jul, [facility] [address] [id number] [address] [place] [address], [place] [address] Jul, [facility] [address] [id number] [address] [place] [address], [place] [address] Jun, [facility] [address] [id number] [address] [place] [address], [place] [address] Jun, [facility] [address] [id number] [address] [place] [address], [place] [address] Jun, [facility] [address] [id number] [address] [place] [address], [place] [address] Jun, [facility] [address] [id number] [address] [place] [address], [place] [address] Jun, [facility] [address] [id number] [address] [place] [address] Jun, [facility] [address] [id number] [address] [place] [address] Jun, [facility] [address] [id number] [address] [place] [address] Jun, [facility] [address] [id number] [address] [place] [address] Jun, [facility] [address] [id number] [address] [place] [address], [place] [address] Jun, [facility] [address] [id number] [address] [place] [address], [place] [address] May, [facility] [address] [id number] [address] [place] [address], [place] [address] May, [facility] [address] [id number] [address] [place] [address], [place] [address] May, [facility] [address] [id number] [address] [place] [address], [place] [address] May, [facility] [address] [id number] [address] [place] [address], [place] [address] May, [facility] [address] [id number] [address] [place] [address], [place] [address] May, [facility] [address] [id number] [address] [place] [address], [place] [address] May, [facility] [address] [id number] [address] [place] [address], [place] [address] May, [facility] [address] [id number] [address] [place] [address], [place] [address] May, [facility] [address] [id number] [address] [place] [address], [place] [address] 15 May, [address] [facility] [address] [id number] [address] [place] [address], [place] [address] 15 May, 2014 [facility] [address] [id number] [address] [place] [address], [place] [address] Apr, [facility] [address] [id number] [address] [place] [address], [place] [address] Apr, [facility] [address] [id number] [address] [place] [address], [place] [address] 17 Apr, 2014 [facility] [address] [id number] [address] [place] [address], [place] [address] Apr, [facility] [address] [id number] [address] [place] [address], [place] [address] Mar, [facility] [address] [id number] [address] [place] [address], [place] [address] Mar, [facility] [address] [id number] [address] [place] [address], [place] [address] Mar, [facility] [address] [id number] [address] [place] [address], [place] [address] Mar, [facility] [address] [id number] [address] [place] [address], [place] [address] Feb, [facility] [address] [id number] [address] [place] [address], [place] [address] Feb, [facility] [address] [id number] [address] [place] [address], [place] [address] Feb, [facility] [address] [id number] [address] [place] [address], [place] [address] Feb, [facility] [address] [id number] [address] [place] [address], [place] [address] 16 Feb, 2014 [facility] [address] [id number] [address] [place] [address], [place] [address] 16 Feb, 2014 [facility] [address] [id number] [address] [place] [address], [place] [address] Jan, [facility] [address] [id number] [address] [place] [address], [place] [address] Jan, [facility] [address] [id number] [address] [place] [address], [place] [address] Jan, [facility] [address] [id number] [address] [place] [address], [place] [address] Jan, [facility] [address] [id number] [address] [place] [address], [place] [address] Jan, [facility] [address] [id number] [address] [place] [address], [place] [address] Jan, [facility] [address] [id number] [address] [place] [address], [place] [address] Dec, [facility] [address] [id number] [address] [place] [address], [place] [address] Dec, [facility] [address] [id number] [address] [place] [address], [place] [address] Nov, [facility] [address] [id number] [address] [place] [address], [place] [address] Nov, [facility] [address] [id number] [address] [place] [address], [place] [address] Nov, [facility] [address] [id number] [address] [place] [address], [place] [address] Nov, [facility] [address] [id number] [address] [place] [address], [place] [address] Nov, [facility] [address] [id number] [address] [place] [address], [place] [address] Nov, [facility] [address] [id number] [address] [place] [address], [place] [address] Nov, [facility] [address] [id number] [address] [place] [address], [place] [address] October, [facility] [address] [id number] [address] [place] [address], [place] [address] October, [facility] [address] [id number] [address] [place] [address], [place] [address] Sep, [facility] [address] [id number] [address] [place] [address], [place] [address] Sep, [facility] [address] [id number] [address] [place] [address], [place] [address] Sep, [facility] [address] [id number] [address] [place] [address], [place] [address] Sep, [facility] [address] [id number] [facility] [place] [address] 17 Sep, 2013 [facility] [address] [id number] [address] [place] [address], [place] [address] Sep, [facility] [address] [id number] [address] [place] [address], [place] [address] Sep, [facility] [address] [id number] [address] [place] [address], [place] [address] Sep, [facility] [address] [id number] [address] [place] [address], [place] [address] Sep, [facility] [address] [id number] [address] [place] [address], [place] [address] Sep, [facility] [address] [id number] [address] [place] [address], [place] [address] Sep, [facility] [address] [id number] [address] [place] [address], [place] [address] Sep, [facility] [address] [id number] [address] [place] [address], [place] [address] Sep, [facility] [address] [id number] [address] [place] [address], [place] [address] Sep, [facility] [address] [id number] [address] [place] [address], [place] [address] Sep, [facility] [address] [id number] [address] [place] [address], [place] [address] Aug, [facility] [address] [id number] [address] [place] [address], [place] [address] Aug, [facility] [address] [id number] [address] [place] [address], [place] [address] Aug, [facility] [address] [id number] [address] [place] [address], [place] [address] Aug, [facility] [address] [id number] [address] [place] [address], [place] [address] Aug, [facility] [address] [id number] [address] [place] [address], [place] [address] Aug, [facility] [address] [id number] [address] [place] [address], [place] [address] Aug, [facility] [address] [id number] [address] [place] [address], [place] [address] Aug, [facility] [address] [id number] [address] [place] [address], [place] [address] Aug, [facility] [address] [id number] [address] [place] [address], [place] [address] Aug, [facility] [address] [id number] [address] [place] [address], [place] [address] Jun, [facility] [address] [id number] [address] [place] [address], [place] [address] Jun, [facility] [address] [id number] [address] [place] [address], [place] [address] Jun, [facility] [address] [id number] [address] [place] [address], [place] [address] Jun, [facility] [address] [id number] [address] [place] [address], [place] [address] Jun, [facility] [address] [id number] [address] [place] [address], [place] [address] Jun, [facility] [address] [id number] [address] [place] [address], [place] [address] Jun, [facility] [address] [id number] [address] [place] [address], [place] [address] Jun, [facility] [address] [id number] [address] [place] [address], [place] [address] Jun, [facility] [address] [id number] [address] [place] [address], [place] [address] Jun, [facility] [address] [id number] [facility] [place] [address] Jun, [facility] [address] [id number] [facility] [place] [address] Jun, [facility] [address] [id number] [facility] [place] [address] Apr, [facility] [address] [id number] [address] [place] [address], [place] [address] Apr, [facility] [address] [id number] [address] [place] [address], [place] [address] Jan, [facility] [address] [id number] [address] [place] [address], [place] [address] Jan, [facility] [address] [id number] [address] [place] [address], [place] [address] Jan, [facility] [address] [id number] [address] [place] [address], [place] [address] Jan, [facility] [address] [id number] [address] [place] [address], [place] [address] Jan, [facility] [address] [id number] [address] [place] [address], [place] [address] Jan, [facility] [address] [id number] [address] [place] [address], [place] [address] Jan, [facility] [address] [place] [id number] Jan, [facility] [address] [id number] [address] [place] [address], [place] [address] Dec, [facility] [address] [id number] [address] [place] [address], [place] [address] Dec, [facility] [address] [id number] [address] [place] [address], [place] [address] Dec, [facility] [address] [id number] [address] [place] [address], [place] [address] Dec, [facility] [address] [facility] [id number] [address] [place] [address] Dec, [facility] [address] [facility] [id number] [address] [place] [address] Dec, [facility] [address] [facility] [id number] [address] [place] [address] Dec, [facility] [address] [facility] [id number] [address] [place] [address] Nov, [facility] [address] [facility] [id number] [address] [place] [address] Nov, IMMUNIZATIONS No Known Immunizations SOCIAL HISTORY Never Assessed REASON FOR VISIT EMR-[facility] PLAN OF CARE VITAL SIGNS MEDICATIONS Unknown Medications RESULTS No Results PROCEDURES No Known procedures INSTRUCTIONS MEDICATIONS ADMINISTERED No Known Medications
--- OUTSIDE RECORDS SUMMARY | 2019-07-25 20:26 | XMS REPORT ---
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 Active Problem Suicide and self-inflicted p oisoning by unspecified drug or medicinal substance E950.5 Active Problem Other dyspnea and respiratory abnormalities 786.09 Active 426778666 Problem Dysuria 788.1 Active 45132633 Problem Congestive heart failure, unspecified 428.0 Active 71988389 Problem Other screening breast examination V76.19 Active 48379830 Problem Unspecified hypotension 458.9 Active 08386987 Problem Other specified disorders of bladder 596.89 Active 66910802 Problem Encounter for long-term (current) use of other medications V58.69 Active 255604434 Problem Counseling on substance use and abuse V65.42 Active 143010207 Problem Unspecified myalgia and myositis 729.1 Active 933293619 Problem Pain in soft tissues of limb 729.5 A ctive 28655742 Problem Urinary tract infection, site not specified 599.0 Active 59734825 Problem Pain in joint, lower leg 719.46 Activ e 821346095 Problem Chronic airway obstruction, not elsewhere classified 496 Active 03563864 Problem Neurogenic bladder, NOS 596.54 Active 747900021 Problem Acute sinusitis, unspecified 461.9 A ctive 55067346 Problem Personal history of pulmonary embolism V12.55 Active 646692252 Problem Acute bronchitis 466.0 Active 105 67394 Problem Unspecified hearing loss 389.9 Activ e 20056069 Problem Unspecified otalgia 388.70 Active 44451988 Problem Unspecified hereditary and idiopathic peripheral neuropath y 356.9 Active 741948032 Problem Other and unspecified hyperlipidemia 272.4 Active 46176688 Problem Altered mental status 780.97 Active 807660831 Problem Diabetes mellitus without me ntion of complication, type II or unspecified type, not stated as uncontrolled 250.00 Active 234132864 Problem Shortness of breath 786.05 Active 538061681 Problem Other malaise and fatigue 780.79 Acti ve 492950649 Problem Other chronic pain 338.29 Active 8 3457582 Problem Nondependent tobacco use disorder 305.1 Active 525584386 Problem Amphetamine and other psychostimulant de pendence, 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 Active Problem Obesity, unspecified 278.00 Active 135949082 ALLERGIES No Information ENCOUNTERS Encounter Location Date Diagnosis [facility] [address] [facility] [id number] [address] [place] [address] Sep, [facility] [address] [facility] [id number] [address] [place] [address] Sep, [facility] [address] [facility] [id number] [address] [place] [address] Aug, [facility] [address] [facility] [id number] [address] [place] [address] Aug, [facility] [address] [place] [id number] [address] [place] [address] Aug, [facility] [address] [facility] [id number] [address] [place] [address] Aug, [facility] [address] [facility] [id number] [address] [place] [address] Aug, [facility] [address] [facility] [id number] [address] [place] [address] Aug, [facility] [address] [facility] [id number] [address] [place] [address] Jul, [facility] [address] [facility] [id number] [address] [place] [address] Jul, [facility] [address] [place] [id number] [address] [place] [address] Jul, [facility] [address] [id number] [address] [place] [address], [place] [address] Jul, [facility] [address] [id number] [address] [place] [address], [place] [address] Jul, 2014 [facility] [address] [id number] [address] [place] [address], [place] [address] Jul, 2014 [facility] [address] [id number] [address] [place] [address], [place] [address] Jul, [facility] [address] [id number] [address] [place] [address], [place] [address] Jul, [facility] [address] [id number] [address] [place] [address], [place] [address] Jul, [facility] [address] [id number] [address] [place] [address], [place] [address] Jun, [facility] [address] [id number] [address] [place] [address], [place] [address] Jun, [facility] [address] [id number] [address] [place] [address], [place] [address] Jun, [facility] [address] [id number] [address] [place] [address], [place] [address] Jun, [facility] [address] [id number] [address] [place] [address], [place] [address] Jun, [facility] [address] [id number] [address] [place] [address] Jun, [facility] [address] [id number] [address] [place] [address] Jun, [facility] [address] [id number] [address] [place] [address] Jun, [facility] [address] [id number] [address] [place] [address] Jun, [facility] [address] [id number] [address] [place] [address], [place] [address] Jun, [facility] [address] [id number] [address] [place] [address], [place] [address] May, [facility] [address] [id number] [address] [place] [address], [place] [address] May, [facility] [address] [id number] [address] [place] [address], [place] [address] May, [facility] [address] [id number] [address] [place] [address], [place] [address] May, [facility] [address] [id number] [address] [place] [address], [place] [address] May, [facility] [address] [id number] [address] [place] [address], [place] [address] May, [facility] [address] [id number] [address] [place] [address], [place] [address] May, [facility] [address] [id number] [address] [place] [address], [place] [address] May, [facility] [address] [id number] [address] [place] [address], [place] [address] May, [facility] [address] [id number] [address] [place] [address], [place] [address] 15 May, 2014 [facility] [address] [id number] [address] [place] [address], [place] [address] 15 May, 2014 [facility] [address] [id number] [address] [place] [address], [place] [address] Apr, [facility] [address] [id number] [address] [place] [address], [place] [address] Apr, [facility] [address] [id number] [address] [place] [address], [place] [address] 17 Apr, 2014 [facility] [address] [id number] [address] [place] [address], [place] [address] Apr, [facility] [address] [id number] [address] [place] [address], [place] [address] Mar, [facility] [address] [id number] [address] [place] [address], [place] [address] Mar, [facility] [address] [id number] [address] [place] [address], [place] [address] Mar, [facility] [address] [id number] [address] [place] [address], [place] [address] Mar, [facility] [address] [id number] [address] [place] [address], [place] [address] Feb, [facility] [address] [id number] [address] [place] [address], [place] [address] Feb, [facility] [address] [id number] [address] [place] [address], [place] [address] Feb, [facility] [address] [id number] [address] [place] [address], [place] [address] Feb, [facility] [address] [id number] [address] [place] [address], [place] [address] 16 Feb, 2014 [facility] [address] [id number] [address] [place] [address], [place] [address] 16 Feb, 2014 [facility] [address] [id number] [address] [place] [address], [place] [address] Jan, [facility] [address] [id number] [address] [place] [address], [place] [address] Jan, [facility] [address] [id number] [address] [place] [address], [place] [address] Jan, [facility] [address] [id number] [address] [place] [address], [place] [address] Jan, [facility] [address] [id number] [address] [place] [address], [place] [address] Jan, [facility] [address] [id number] [address] [place] [address], [place] [address] Jan, [facility] [address] [id number] [address] [place] [address], [place] [address] Dec, [facility] [address] [id number] [address] [place] [address], [place] [address] Dec, [facility] [address] [id number] [address] [place] [address], [place] [address] Nov, [facility] [address] [id number] [address] [place] [address], [place] [address] Nov, [facility] [address] [id number] [address] [place] [address], [place] [address] Nov, [facility] [address] [id number] [address] [place] [address], [place] [address] Nov, [facility] [address] [id number] [address] [place] [address], [place] [address] Nov, [facility] [address] [id number] [address] [place] [address], [place] [address] Nov, [facility] [address] [id number] [address] [place] [address], [place] [address] Nov, [facility] [address] [id number] [address] [place] [address], [place] [address] October, [facility] [address] [id number] [address] [place] [address], [place] [address] October, [facility] [address] [id number] [address] [place] [address], [place] [address] Sep, [facility] [address] [id number] [address] [place] [address], [place] [address] Sep, [facility] [address] [id number] [address] [place] [address], [place] [address] Sep, [facility] [address] [id number] [address] [place] [address], [place] [address] Sep, [facility] [address] [id number] [facility] [place] [address] 17 Sep, 2013 [facility] [address] [id number] [address] [place] [address], [place] [address] Sep, [facility] [address] [id number] [address] [place] [address], [place] [address] Sep, [facility] [address] [id number] [address] [place] [address], [place] [address] Sep, [facility] [address] [id number] [address] [place] [address], [place] [address] Sep, [facility] [address] [id number] [address] [place] [address], [place] [address] Sep, [facility] [address] [id number] [address] [place] [address], [place] [address] Sep, [facility] [address] [id number] [address] [place] [address], [place] [address] Sep, [facility] [address] [id number] [address] [place] [address], [place] [address] Sep, [facility] [address] [id number] [address] [place] [address], [place] [address] Sep, [facility] [address] [id number] [address] [place] [address], [place] [address] Sep, [facility] [address] [id number] [address] [place] [address], [place] [address] Aug, [facility] [address] [id number] [address] [place] [address], [place] [address] Aug, [facility] [address] [id number] [address] [place] [address], [place] [address] Aug, [facility] [address] [id number] [address] [place] [address], [place] [address] Aug, [facility] [address] [id number] [address] [place] [address], [place] [address] Aug, [facility] [address] [id number] [address] [place] [address], [place] [address] Aug, [facility] [address] [id number] [address] [place] [address], [place] [address] Aug, [facility] [address] [id number] [address] [place] [address], [place] [address] Aug, [facility] [address] [id number] [address] [place] [address], [place] [address] Aug, [facility] [address] [id number] [address] [place] [address], [place] [address] Aug, [facility] [address] [id number] [address] [place] [address], [place] [address] Jun, [facility] [address] [id number] [address] [place] [address], [place] [address] Jun, [facility] [address] [id number] [address] [place] [address], [place] [address] Jun, [facility] [address] [id number] [address] [place] [address], [place] [address] Jun, [facility] [address] [id number] [address] [place] [address], [place] [address] Jun, [facility] [address] [id number] [address] [place] [address], [place] [address] Jun, [facility] [address] [id number] [address] [place] [address], [place] [address] Jun, [facility] [address] [id number] [address] [place] [address], [place] [address] Jun, [facility] [address] [id number] [address] [place] [address], [place] [address] Jun, [facility] [address] [id number] [address] [place] [address], [place] [address] Jun, [facility] [address] [id number] [facility] [place] [address] Jun, [facility] [address] [id number] [facility] [place] [address] Jun, [facility] [address] [id number] [facility] [place] [address] Apr, [facility] [address] [id number] [address] [place] [address], [place] [address] Apr, [facility] [address] [id number] [address] [place] [address], [place] [address] Jan, [facility] [address] [id number] [address] [place] [address], [place] [address] Jan, [facility] [address] [id number] [address] [place] [address], [place] [address] Jan, [facility] [address] [id number] [address] [place] [address], [place] [address] Jan, [facility] [address] [id number] [address] [place] [address], [place] [address] Jan, [facility] [address] [id number] [address] [place] [address], [place] [address] Jan, [facility] [address] [id number] [address] [place] [address], [place] [address] Jan, [facility] [address] [place] [id number] Jan, [facility] [address] [id number] [address] [place] [address], [place] [address] Dec, [facility] [address] [id number] [address] [place] [address], [place] [address] Dec, [facility] [address] [id number] [address] [place] [address], [place] [address] Dec, [facility] [address] [id number] [address] [place] [address], [place] [address] Dec, [facility] [address] [facility] [id number] [address] [place] [address] Dec, [facility] [address] [facility] [id number] [address] [place] [address] Dec, [facility] [address] [facility] [id number] [address] [place] [address] Dec, [facility] [address] [facility] [id number] [address] [place] [address] Nov, [facility] [address] [facility] [id number] [address] [place] [address] Nov, IMMUNIZATIONS No Known Immunizations SOCIAL HISTORY Never Assessed REASON FOR VISIT EMR-[facility] [place] OF CARE VITAL SIGNS MEDICATIONS Unknown Medications RESULTS No Results PROCEDURES No Known procedures INSTRUCTIONS MEDICATIONS ADMINISTERED No Known Medications
--- OUTSIDE RECORDS SUMMARY | 2019-07-25 20:26 | XMS REPORT ---
Author Author Ayden Payne Doctor Organization [facility] Address Unknown Phone Unavailable Care Team Providers Care Building Rental Superintendent Name Role Phone Migration, Doctor Unavailable Unavailable PROBLEMS Type Condition ICD9-CM Code MGA17-UP Code Onset Dates Condition S tatus SNOMED Code Problem Personal history of fall V15.88 Activ e 733382929 Problem Routine general medical examination at [facility] y V70.0 Active 064642285 Problem Personal history of venous thrombosis and embolism V12.51 Active 227558382 Problem Status of other artificial opening of urinary tract V44.6 Active Problem Suicide and self-inflicted p oisoning by unspecified drug or medicinal substance E950.5 Active Problem Other dyspnea and respiratory abnormalities 786.09 Active 178596249 Problem Dysuria 788.1 Active 08373117 Problem Congestive heart failure, unspecified 428.0 Active 87388033 Problem Other screening breast examination V76.19 Active 51163089 Problem Unspecified hypotension 458.9 Active 11841000 Problem Other specified disorders of bladder 596.89 Active 30395073 Problem Encounter for long-term (current) use of other medications V58.69 Active 675584593 Problem Counseling on substance use and abuse V65.42 Active 202516075 Problem Unspecified myalgia and myositis 729.1 Active 096396532 Problem Pain in soft tissues of limb 729.5 A ctive 54850945 Problem Urinary tract infection, site not specified 599.0 Active 91859375 Problem Pain in joint, lower leg 719.46 Activ e 335275434 Problem Chronic airway obstruction, not elsewhere classified 496 Active 59125452 Problem Neurogenic bladder, NOS 596.54 Active 358874494 Problem Acute sinusitis, unspecified 461.9 A ctive 85836337 Problem Personal history of pulmonary embolism V12.55 Active 047307520 Problem Acute bronchitis 466.0 Active 105 50985 Problem Unspecified hearing loss 389.9 Activ e 27030594 Problem Unspecified otalgia 388.70 Active 22235866 Problem Unspecified hereditary and idiopathic peripheral neuropath y 356.9 Active 550082115 Problem Other and unspecified hyperlipidemia 272.4 Active 39515321 Problem Altered mental status 780.97 Active 250052513 Problem Diabetes mellitus without me ntion of complication, type II or unspecified type, not stated as uncontrolled 250.00 Active 062715872 Problem Shortness of breath 786.05 Active 153795307 Problem Other malaise and fatigue 780.79 Acti ve 650836664 Problem Other chronic pain 338.29 Active 8 1825199 Problem Nondependent tobacco use disorder 305.1 Active 890202328 Problem Amphetamine and other psychostimulant de pendence, 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 Active Problem Obesity, unspecified 278.00 Active 370718858 ALLERGIES No Information ENCOUNTERS Encounter Location Date Diagnosis [facility] [address] [facility] [id number] [address] [place] [address] Sep, [facility] [address] [facility] [id number] [address] [place] [address] Sep, [facility] [address] [facility] [id number] [address] [place] [address] Aug, [facility] [address] [facility] [id number] [address] [place] [address] Aug, [facility] [address] [place] [id number] [address] [place] [address] Aug, [facility] [address] [facility] [id number] [address] [place] [address] Aug, [facility] [address] [facility] [id number] [address] [place] [address] Aug, [facility] [address] [facility] [id number] [address] [place] [address] Aug, [facility] [address] [facility] [id number] [address] [place] [address] Jul, [facility] [address] [facility] [id number] [address] [place] [address] Jul, [facility] [address] [place] [id number] [address] [place] [address] Jul, [facility] [address] [id number] [address] [place] [address], [place] [address] Jul, [facility] [address] [id number] [address] [place] [address], [place] [address] Jul, 2014 [facility] [address] [id number] [address] [place] [address], [place] [address] Jul, 2014 [facility] [address] [id number] [address] [place] [address], [place] [address] Jul, [facility] [address] [id number] [address] [place] [address], [place] [address] Jul, [facility] [address] [id number] [address] [place] [address], [place] [address] Jul, [facility] [address] [id number] [address] [place] [address], [place] [address] Jun, [facility] [address] [id number] [address] [place] [address], [place] [address] Jun, [facility] [address] [id number] [address] [place] [address], [place] [address] Jun, [facility] [address] [id number] [address] [place] [address], [place] [address] Jun, [facility] [address] [id number] [address] [place] [address], [place] [address] Jun, [facility] [address] [id number] [address] [place] [address] Jun, [facility] [address] [id number] [address] [place] [address] Jun, [facility] [address] [id number] [address] [place] [address] Jun, [facility] [address] [id number] [address] [place] [address] Jun, [facility] [address] [id number] [address] [place] [address], [place] [address] Jun, [facility] [address] [id number] [address] [place] [address], [place] [address] May, [facility] [address] [id number] [address] [place] [address], [place] [address] May, [facility] [address] [id number] [address] [place] [address], [place] [address] May, [facility] [address] [id number] [address] [place] [address], [place] [address] May, [facility] [address] [id number] [address] [place] [address], [place] [address] May, [facility] [address] [id number] [address] [place] [address], [place] [address] May, [facility] [address] [id number] [address] [place] [address], [place] [address] May, [facility] [address] [id number] [address] [place] [address], [place] [address] May, [facility] [address] [id number] [address] [place] [address], [place] [address] May, [facility] [address] [id number] [address] [place] [address], [place] [address] 15 May, 2014 [facility] [address] [id number] [address] [place] [address], [place] [address] 15 May, 2014 [facility] [address] [id number] [address] [place] [address], [place] [address] Apr, [facility] [address] [id number] [address] [place] [address], [place] [address] Apr, [facility] [address] [id number] [address] [place] [address], [place] [address] 17 Apr, 2014 [facility] [address] [id number] [address] [place] [address], [place] [address] Apr, [facility] [address] [id number] [address] [place] [address], [place] [address] Mar, [facility] [address] [id number] [address] [place] [address], [place] [address] Mar, [facility] [address] [id number] [address] [place] [address], [place] [address] Mar, [facility] [address] [id number] [address] [place] [address], [place] [address] Mar, [facility] [address] [id number] [address] [place] [address], [place] [address] Feb, [facility] [address] [id number] [address] [place] [address], [place] [address] Feb, [facility] [address] [id number] [address] [place] [address], [place] [address] Feb, [facility] [address] [id number] [address] [place] [address], [place] [address] Feb, [facility] [address] [id number] [address] [place] [address], [place] [address] 16 Feb, 2014 [facility] [address] [id number] [address] [place] [address], [place] [address] 16 Feb, 2014 [facility] [address] [id number] [address] [place] [address], [place] [address] Jan, [facility] [address] [id number] [address] [place] [address], [place] [address] Jan, [facility] [address] [id number] [address] [place] [address], [place] [address] Jan, [facility] [address] [id number] [address] [place] [address], [place] [address] Jan, [facility] [address] [id number] [address] [place] [address], [place] [address] Jan, [facility] [address] [id number] [address] [place] [address], [place] [address] Jan, [facility] [address] [id number] [address] [place] [address], [place] [address] Dec, [facility] [address] [id number] [address] [place] [address], [place] [address] Dec, [facility] [address] [id number] [address] [place] [address], [place] [address] Nov, [facility] [address] [id number] [address] [place] [address], [place] [address] Nov, [facility] [address] [id number] [address] [place] [address], [place] [address] Nov, [facility] [address] [id number] [address] [place] [address], [place] [address] Nov, [facility] [address] [id number] [address] [place] [address], [place] [address] Nov, [facility] [address] [id number] [address] [place] [address], [place] [address] Nov, [facility] [address] [id number] [address] [place] [address], [place] [address] Nov, [facility] [address] [id number] [address] [place] [address], [place] [address] October, [facility] [address] [id number] [address] [place] [address], [place] [address] October, [facility] [address] [id number] [address] [place] [address], [place] [address] Sep, [facility] [address] [id number] [address] [place] [address], [place] [address] Sep, [facility] [address] [id number] [address] [place] [address], [place] [address] Sep, [facility] [address] [id number] [address] [place] [address], [place] [address] Sep, [facility] [address] [id number] [facility] [place] [address] 17 Sep, 2013 [facility] [address] [id number] [address] [place] [address], [place] [address] Sep, [facility] [address] [id number] [address] [place] [address], [place] [address] Sep, [facility] [address] [id number] [address] [place] [address], [place] [address] Sep, [facility] [address] [id number] [address] [place] [address], [place] [address] Sep, [facility] [address] [id number] [address] [place] [address], [place] [address] Sep, [facility] [address] [id number] [address] [place] [address], [place] [address] Sep, [facility] [address] [id number] [address] [place] [address], [place] [address] Sep, [facility] [address] [id number] [address] [place] [address], [place] [address] Sep, [facility] [address] [id number] [address] [place] [address], [place] [address] Sep, [facility] [address] [id number] [address] [place] [address], [place] [address] Sep, [facility] [address] [id number] [address] [place] [address], [place] [address] Aug, [facility] [address] [id number] [address] [place] [address], [place] [address] Aug, [facility] [address] [id number] [address] [place] [address], [place] [address] Aug, [facility] [address] [id number] [address] [place] [address], [place] [address] Aug, [facility] [address] [id number] [address] [place] [address], [place] [address] Aug, [facility] [address] [id number] [address] [place] [address], [place] [address] Aug, [facility] [address] [id number] [address] [place] [address], [place] [address] Aug, [facility] [address] [id number] [address] [place] [address], [place] [address] Aug, [facility] [address] [id number] [address] [place] [address], [place] [address] Aug, [facility] [address] [id number] [address] [place] [address], [place] [address] Aug, [facility] [address] [id number] [address] [place] [address], [place] [address] Jun, [facility] [address] [id number] [address] [place] [address], [place] [address] Jun, [facility] [address] [id number] [address] [place] [address], [place] [address] Jun, [facility] [address] [id number] [address] [place] [address], [place] [address] Jun, [facility] [address] [id number] [address] [place] [address], [place] [address] Jun, [facility] [address] [id number] [address] [place] [address], [place] [address] Jun, [facility] [address] [id number] [address] [place] [address], [place] [address] Jun, [facility] [address] [id number] [address] [place] [address], [place] [address] Jun, [facility] [address] [id number] [address] [place] [address], [place] [address] Jun, [facility] [address] [id number] [address] [place] [address], [place] [address] Jun, [facility] [address] [id number] [facility] [place] [address] Jun, [facility] [address] [id number] [facility] [place] [address] Jun, [facility] [address] [id number] [facility] [place] [address] Apr, [facility] [address] [id number] [address] [place] [address], [place] [address] Apr, [facility] [address] [id number] [address] [place] [address], [place] [address] Jan, [facility] [address] [id number] [address] [place] [address], [place] [address] Jan, [facility] [address] [id number] [address] [place] [address], [place] [address] Jan, [facility] [address] [id number] [address] [place] [address], [place] [address] Jan, [facility] [address] [id number] [address] [place] [address], [place] [address] Jan, [facility] [address] [id number] [address] [place] [address], [place] [address] Jan, [facility] [address] [id number] [address] [place] [address], [place] [address] Jan, [facility] [address] [place] [id number] Jan, [facility] [address] [id number] [address] [place] [address], [place] [address] Dec, [facility] [address] [id number] [address] [place] [address], [place] [address] Dec, [facility] [address] [id number] [address] [place] [address], [place] [address] Dec, [facility] [address] [id number] [address] [place] [address], [place] [address] Dec, [facility] [address] [facility] [id number] [address] [place] [address] Dec, [facility] [address] [facility] [id number] [address] [place] [address] Dec, [facility] [address] [facility] [id number] [address] [place] [address] Dec, [facility] [address] [facility] [id number] [address] [place] [address] Nov, [facility] [address] [facility] [id number] [address] [place] [address] Nov, IMMUNIZATIONS No Known Immunizations SOCIAL HISTORY Never Assessed REASON FOR VISIT EMR-[facility] PLAN OF CARE VITAL SIGNS MEDICATIONS Unknown Medications RESULTS No Results PROCEDURES No Known procedures INSTRUCTIONS MEDICATIONS ADMINISTERED No Known Medications
--- OUTSIDE RECORDS SUMMARY | 2019-07-25 20:27 | XMS REPORT | Clinical Summary ---
Author Author Evelyn, Ayden Arias Organization [employer] Address Unknown Phone Unavailable Allergies, Adverse Reactions, Alerts Allergy Name Reaction Description Start Date Severity Status Pr ovider ALPRAZOLAM Critical Active Мария hill MD Conditions or Problems Problem Name Problem Code Onset Date Status Entry Date Provider Comment Standard Description Annotate Neurogenic Bladder 596.54 Active Мария doherty MD Neurogenic bladder NOS SP Tube Complication 996.64 Active Мария lima MD Infection and inflammatory reaction due to indwelling urinary catheter Medication List Medication Instructions Start Date Stop Date Generic Name NDC Status Provider Patient Instruction DIFLUCAN 150 MG ORAL TABS Take 1 tablet by mouth daily FLUCONAZOLE 09223209895 No Longer Active Мария Jerry MD Acti ve DIFLUCAN 150 MG ORAL TABS Take 1 tablet by mouth daily DIFLUCAN 150 MG ORAL TABS 677639 FLUCONAZOLE Inactive Advance Directives Directive Description Start Date PERMISSION TO SHARE Encounters Code Encounter Date Provider Facility [id number] Level 3 Est. Patient 16:07:05 HERBARIUM CURATOR Мария vega MD [facility] CPT-26717 Level 3 Est. Patient 17:11:21 CDT Мария vega MD [facility] CPT-85028 Level 2 Est. Patient 13:34:22 HERBARIUM CURATOR Мария vega MD [facility] CPT-60340 Level 3 New Patient 22:01:16 HERBARIUM CURATOR Мария stevenson MD [facility] Procedures Code Procedure Name Date Entry Date Standard Desc ription CPT-A4357 Overnight urinary bag 15:16:16 HERBARIUM CURATOR CPT-A4338 Indwell urin cath Salazar latex 15:16:16 HERBARIUM CURATOR CPT-A4358 Leg bag 15:16:16 HERBARIUM CURATOR CPT-20422 SP Tube Change 15:16:16 HERBARIUM CURATOR CPT-A4358 Leg bag 12:50:04 HERBARIUM CURATOR CPT-A4357 Overnight urinary bag 12:50:04 HERBARIUM CURATOR CPT-A4338 Indwell urin cath [place]azar latex 12:50:04 HERBARIUM CURATOR CPT-A4357 Overnight urinary bag 15:39:04 HERBARIUM CURATOR CPT-A4338 Indwell urin cath [place]azar latex 15:39:04 HERBARIUM CURATOR CPT-85822 Indwelling Cath Change 15:39:04 HERBARIUM CURATOR CPT-53435 SP Tube Change 16:07:05 HERBARIUM CURATOR CPT-44439 Cystoscopy 16:07:05 HERBARIUM CURATOR CPT-55625 SP Tube Change 13:34:22 HERBARIUM CURATOR CPT-16420 SP Tube Change 22:01:16 HERBARIUM CURATOR
--- OUTSIDE RECORDS SUMMARY | 2019-07-25 20:27 | XMS REPORT | Clinical Summary ---
Author Author Evelyn, Ayden Arias Organization [employer] Address Unknown Phone Unavailable Allergies, Adverse Reactions, [...] Take 1 tablet by mouth daily FLUCONAZOLE [id number] No Longer Active Мария Jerry MD Acti ve DIFLUCAN 150 MG ORAL TABS Take 1 tablet by mouth daily DIFLUCAN 150 MG ORAL TABS [id number] FLUCONAZOLE Inactive Advance Directives Directive Description Start Date PERMISSION TO SHARE Encounters Code Encounter Date Provider Facility CPT-10350 Level 3 Est. Patient 16:07:05 WAREHOUSE RECEIVING SUPERVISOR Мария vega MD [facility] CPT-80139 Level 3 Est. Patient 17:11:21 CDT Мария vega MD [facility] CPT-19620 Level 2 Est. Patient 13:34:22 WAREHOUSE RECEIVING SUPERVISOR Мария vega MD [facility] CPT-45711 Level 3 New Patient 22:01:16 WAREHOUSE RECEIVING SUPERVISOR Мария stevenson MD [facility] Procedures Code Procedure Name Date Entry Date Standard Desc ription CPT-A4358 Leg bag 08:52:06 WAREHOUSE RECEIVING SUPERVISOR CPT-A4357 Overnight urinary bag 08:52:06 WAREHOUSE RECEIVING SUPERVISOR CPT-25277 SP Tube Change 08:52:06 WAREHOUSE RECEIVING SUPERVISOR CPT-A4357 Overnight urinary bag 15:16:16 WAREHOUSE RECEIVING SUPERVISOR CPT-A4338 Indwell urin cath Salazar latex 15:16:16 WAREHOUSE RECEIVING SUPERVISOR CPT-A4358 Leg bag 15:16:16 WAREHOUSE RECEIVING SUPERVISOR CPT-21277 SP Tube Change 15:16:16 WAREHOUSE RECEIVING SUPERVISOR CPT-A4358 Leg bag 12:50:04 WAREHOUSE RECEIVING SUPERVISOR CPT-A4357 Overnight urinary bag 12:50:04 W[employer]HOUSE RECEIVING SUPERVISOR CPT-A4338 [place] [facility] Salazar latex 12:50:04 WAREHOUSE RECEIVING SUPERVISOR CPT-A4357 Overnight urinary bag 15:39:04 WAREHOUSE RECEIVING SUPERVISOR CPT-A4338 [place] [facility] cath Salazar latex 15:39:04 WAREHOUSE RECEIVING SUPERVISOR CPT-42921 Indwelling Cath Change 15:39:04 WAREHOUSE RECEIVING SUPERVISOR CPT-37082 SP Tube Change 16:07:05 WAREHOUSE RECEIVING SUPERVISOR CPT-67362 Cystoscopy 16:07:05 WAREHOUSE RECEIVING SUPERVISOR CPT-69116 SP Tube Change 13:34:22 WAREHOUSE RECEIVING SUPERVISOR CPT-61316 SP Tube Change 22:01:16 WAREHOUSE RECEIVING SUPERVISOR
--- OUTSIDE RECORDS SUMMARY | 2019-07-25 20:27 | XMS REPORT | Clinical Summary ---
Author Author Evelyn, Ayden Arias Organization [employer] Address Unknown Phone Unavailable Allergies, Adverse Reactions, [...] Take 1 tablet by mouth daily FLUCONAZOLE [id number] No Longer Active Мария Jerry MD Acti ve DIFLUCAN 150 MG ORAL TABS Take 1 tablet by mouth daily DIFLUCAN 150 MG ORAL TABS [id number] FLUCONAZOLE Inactive Advance Directives Directive Description Start Date PERMISSION TO SHARE Encounters Code Encounter Date Provider Facility CPT-01459 Level 3 Est. Patient 16:07:05 [employer] PORT[employer] DEVELOPER Мария vega MD [facility] [place] CPT-29011 Level 3 Est. Patient 17:11:21 CDT Мария vega MD [facility] CPT-78758 Level 2 Est. Patient 13:34:22 [employer] DEVELOPER Мария vega MD [facility] [place] CPT-33333 Level 3 New Patient 22:01:16 [employer]AL DEVELOPER Мария stevenson MD [facility] Procedures Code Procedure Name Date Entry Date Standard Desc ription CPT-A4357 Overnight urinary bag 15:16:16 [employer]AL DEVELOPER CPT-A4338 [place] [facility] latex 15:16:16 [employer] PORTAL DEVELOPER CPT-A4358 Leg bag 15:16:16 [employer] PORTAL DEVELOPER CPT-81338 SP Tube Change 15:16:16 [employer]AL DEVELOPER CPT-A4358 Leg bag 12:50:04 [employer] PORTAL DEVELOPER CPT-A4357 Overnight urinary bag 12:50:04 [employer] PORTAL DEVELOPER CPT-A4338 [facility]azar latex 12:50:04 [employer] PORTAL DEVELOPER CPT-A4357 Overnight urinary bag 15:39:04 [employer] PORTAL DEVELOPER CPT-A4338 [facility] [facility] Salazar latex 15:39:04 [employer] PORTAL DEVELOPER CPT-92472 Indwelling Cath Change 15:39:04 [employer] PORTAL DEVELOPER CPT-74265 SP Tube Change 16:07:05 [employer] PORTAL DEVELOPER CPT-28418 Cystoscopy 16:07:05 [employer] PORTAL DEVELOPER CPT-67328 SP Tube Change 13:34:22 [employer] PORTAL DEVELOPER CPT-03086 SP Tube Change 22:01:16 [employer] PORTAL DEVELOPER
--- OUTSIDE RECORDS SUMMARY | 2019-07-25 20:27 | XMS REPORT | Clinical Summary ---
Author Author Evelyn, Ayden Arias Organization [employer] Address Unknown Phone Unavailable Allergies, Adverse Reactions, [...] Take 1 tablet by mouth daily FLUCONAZOLE [id number] No Longer Active Мария Jerry MD Acti ve DIFLUCAN 150 MG ORAL TABS Take 1 tablet by mouth daily DIFLUCAN 150 MG ORAL TABS 119900 FLUCONAZOLE Inactive Advance Directives Directive Description Start Date PERMISSION TO SHARE Encounters Code Encounter Date Provider Facility CPT-87559 Level 3 Est. Patient 16:07:05 MEDICAL STAFFING COORDINATOR Мария vega MD [facility] CPT-97562 Level 3 Est. Patient 17:11:21 CDT Мария vega MD [facility] CPT-72263 Level 2 Est. Patient 13:34:22 MEDICAL STAFFING COORDINATOR Мария vega MD [facility] CPT-30091 Level 3 New Patient 22:01:16 MEDICAL STAFFING COORDINATOR Мария stevenson MD [facility] Procedures Code Procedure Name Date Entry Date Standard Desc ription CPT-A4358 Leg bag 08:52:06 MEDICAL STAFFING COORDINATOR CPT-A4357 Overnight urinary bag 08:52:06 MEDICAL STAFFING COORDINATOR CPT-92956 SP Tube Change 08:52:06 MEDICAL STAFFING COORDINATOR CPT-A4357 Overnight urinary bag 15:16:16 MEDICAL STAFFING COORDINATOR CPT-A4338 Indwell urin cath Salazar latex 15:16:16 MEDICAL STAFFING COORDINATOR CPT-A4358 Leg bag 15:16:16 MEDICAL STAFFING COORDINATOR CPT-77168 SP Tube Change 15:16:16 MEDICAL STAFFING COORDINATOR CPT-A4358 Leg bag 12:50:04 MEDICAL STAFFING COORDINATOR CPT-A4357 Overnight urinary bag 12:50:04 MEDICAL STAFFING COORDINATOR CPT-A4338 Indwell urin cath Salazar latex 12:50:04 MEDICAL STAFFING COORDINATOR CPT-A4357 Overnight urinary bag 15:39:04 MEDICAL STAFFING COORDINATOR CPT-A4338 Indwell urin cath Salazar latex 15:39:04 MEDICAL STAFFING COORDINATOR CPT-36682 Indwelling Cath Change 15:39:04 MEDICAL STAFFING COORDINATOR CPT-19820 SP Tube Change 16:07:05 MEDICAL STAFFING COORDINATOR CPT-11367 Cystoscopy 16:07:05 MEDICAL STAFFING COORDINATOR CPT-21382 SP Tube Change 13:34:22 MEDICAL STAFFING COORDINATOR CPT-34877 SP Tube Change 22:01:16 MEDICAL STAFFING COORDINATOR
--- OUTSIDE RECORDS SUMMARY | 2019-07-25 20:27 | XMS REPORT ---
Author Author Ayden Payne Doctor Organization [facility] Address Unknown Phone Unavailable Care Team Providers Care Regulatory Compliance Officer Name Role Phone Migration, Doctor Unavailable Unavailable PROBLEMS Type Condition ICD9-CM Code [id number] Code Onset Dates Condition S tatus SNOMED Code Problem Personal history of fall V15.88 Activ e 971709458 Problem Routine general medical examination at [facility] y V70.0 Active 012626673 Problem Personal history of venous thrombosis and embolism V12.51 Active 506907333 Problem Status of other artificial opening of urinary tract V44.6 Active Problem Suicide and self-inflicted p oisoning by unspecified drug or medicinal substance E950.5 Active Problem Other dyspnea and respiratory abnormalities 786.09 Active 759658016 Problem Dysuria 788.1 Active 16662947 Problem Congestive heart failure, unspecified 428.0 Active 22724486 Problem Other screening breast examination V76.19 Active 93239097 Problem Unspecified hypotension 458.9 Active 55710386 Problem Other specified disorders of bladder 596.89 Active 12702806 Problem Encounter for long-term (current) use of other medications V58.69 Active 207833800 Problem Counseling on substance use and abuse V65.42 Active 597583068 Problem Unspecified myalgia and myositis 729.1 Active 267812336 Problem Pain in soft tissues of limb 729.5 A ctive 74802512 Problem Urinary tract infection, site not specified 599.0 Active 53699883 Problem Pain in joint, lower leg 719.46 Activ e 983854227 Problem Chronic airway obstruction, not elsewhere classified 496 Active 22767840 Problem Neurogenic bladder, NOS 596.54 Active 966807829 Problem Acute sinusitis, unspecified 461.9 A ctive 09932835 Problem Personal history of pulmonary embolism V12.55 Active 995857066 Problem Acute bronchitis 466.0 Active 105 61225 Problem Unspecified hearing loss 389.9 Activ e 12577393 Problem Unspecified otalgia 388.70 Active 53273487 Problem Unspecified hereditary and idiopathic peripheral neuropath y 356.9 Active 682365465 Problem Other and unspecified hyperlipidemia 272.4 Active 13553771 Problem Altered mental status 780.97 Active 360796760 Problem Diabetes mellitus without me ntion of complication, type II or unspecified type, not stated as uncontrolled 250.00 Active 392056804 Problem Shortness of breath 786.05 Active 934356837 Problem Other malaise and fatigue 780.79 Acti ve 967090093 Problem Other chronic pain 338.29 Active 8 9671142 Problem Nondependent tobacco use disorder 305.1 Active 697541070 Problem Amphetamine and other psychostimulant de pendence, 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 Active Problem Obesity, unspecified 278.00 Active 684823523 ALLERGIES No Information ENCOUNTERS Encounter Location Date Diagnosis [facility] [address] [facility] [id number] [address] [place] [address] Sep, [facility] [address] [facility] [id number] [address] [place] [address] Sep, [facility] [address] [facility] [id number] [address] [place] [address] Aug, [facility] [address] [facility] [id number] [address] [place] [address] Aug, [facility] [address] [place] [id number] [address] [place] [address] Aug, [facility] [address] [facility] [id number] [address] [place] [address] Aug, [facility] [address] [facility] [id number] [address] [place] [address] Aug, [facility] [address] [facility] [id number] [address] [place] [address] Aug, [facility] [address] [facility] [id number] [address] [place] [address] Jul, [facility] [address] [facility] [id number] [address] [place] [address] Jul, [facility] [address] [place] [id number] [address] [place] [address] Jul, [facility] [address] [id number] [address] [place] [address], [place] [address] Jul, [facility] [address] [id number] [address] [place] [address], [place] [address] Jul, 2014 [facility] [address] [id number] [address] [place] [address], [place] [address] Jul, 2014 [facility] [address] [id number] [address] [place] [address], [place] [address] Jul, [facility] [address] [id number] [address] [place] [address], [place] [address] Jul, [facility] [address] [id number] [address] [place] [address], [place] [address] Jul, [facility] [address] [id number] [address] [place] [address], [place] [address] Jun, [facility] [address] [id number] [address] [place] [address], [place] [address] Jun, [facility] [address] [id number] [address] [place] [address], [place] [address] Jun, [facility] [address] [id number] [address] [place] [address], [place] [address] Jun, [facility] [address] [id number] [address] [place] [address], [place] [address] Jun, [facility] [address] [id number] [address] [place] [address] Jun, [facility] [address] [id number] [address] [place] [address] Jun, [facility] [address] [id number] [address] [place] [address] Jun, [facility] [address] [id number] [address] [place] [address] Jun, [facility] [address] [id number] [address] [place] [address], [place] [address] Jun, [facility] [address] [id number] [address] [place] [address], [place] [address] May, [facility] [address] [id number] [address] [place] [address], [place] [address] May, [facility] [address] [id number] [address] [place] [address], [place] [address] May, [facility] [address] [id number] [address] [place] [address], [place] [address] May, [facility] [address] [id number] [address] [place] [address], [place] [address] May, [facility] [address] [id number] [address] [place] [address], [place] [address] May, [facility] [address] [id number] [address] [place] [address], [place] [address] May, [facility] [address] [id number] [address] [place] [address], [place] [address] May, [facility] [address] [id number] [address] [place] [address], [place] [address] May, [facility] [address] [id number] [address] [place] [address], [place] [address] 15 May, 2014 [facility] [address] [id number] [address] [place] [address], [place] [address] 15 May, 2014 [facility] [address] [id number] [address] [place] [address], [place] [address] Apr, [facility] [address] [id number] [address] [place] [address], [place] [address] Apr, [facility] [address] [id number] [address] [place] [address], [place] [address] 17 Apr, 2014 [facility] [address] [id number] [address] [place] [address], [place] [address] Apr, [facility] [address] [id number] [address] [place] [address], [place] [address] Mar, [facility] [address] [id number] [address] [place] [address], [place] [address] Mar, [facility] [address] [id number] [address] [place] [address], [place] [address] Mar, [facility] [address] [id number] [address] [place] [address], [place] [address] Mar, [facility] [address] [id number] [address] [place] [address], [place] [address] Feb, [facility] [address] [id number] [address] [place] [address], [place] [address] Feb, [facility] [address] [id number] [address] [place] [address], [place] [address] Feb, [facility] [address] [id number] [address] [place] [address], [place] [address] Feb, [facility] [address] [id number] [address] [place] [address], [place] [address] 16 Feb, 2014 [facility] [address] [id number] [address] [place] [address], [place] [address] 16 Feb, 2014 [facility] [address] [id number] [address] [place] [address], [place] [address] Jan, [facility] [address] [id number] [address] [place] [address], [place] [address] Jan, [facility] [address] [id number] [address] [place] [address], [place] [address] Jan, [facility] [address] [id number] [address] [place] [address], [place] [address] Jan, [facility] [address] [id number] [address] [place] [address], [place] [address] Jan, [facility] [address] [id number] [address] [place] [address], [place] [address] Jan, [facility] [address] [id number] [address] [place] [address], [place] [address] Dec, [facility] [address] [id number] [address] [place] [address], [place] [address] Dec, [facility] [address] [id number] [address] [place] [address], [place] [address] Nov, [facility] [address] [id number] [address] [place] [address], [place] [address] Nov, [facility] [address] [id number] [address] [place] [address], [place] [address] Nov, [facility] [address] [id number] [address] [place] [address], [place] [address] Nov, [facility] [address] [id number] [address] [place] [address], [place] [address] Nov, [facility] [address] [id number] [address] [place] [address], [place] [address] Nov, [facility] [address] [id number] [address] [place] [address], [place] [address] Nov, [facility] [address] [id number] [address] [place] [address], [place] [address] October, [facility] [address] [id number] [address] [place] [address], [place] [address] October, [facility] [address] [id number] [address] [place] [address], [place] [address] Sep, [facility] [address] [id number] [address] [place] [address], [place] [address] Sep, [facility] [address] [id number] [address] [place] [address], [place] [address] Sep, [facility] [address] [id number] [address] [place] [address], [place] [address] Sep, [facility] [address] [id number] [facility] [place] [address] 17 Sep, 2013 [facility] [address] [id number] [address] [place] [address], [place] [address] Sep, [facility] [address] [id number] [address] [place] [address], [place] [address] Sep, [facility] [address] [id number] [address] [place] [address], [place] [address] Sep, [facility] [address] [id number] [address] [place] [address], [place] [address] Sep, [facility] [address] [id number] [address] [place] [address], [place] [address] Sep, [facility] [address] [id number] [address] [place] [address], [place] [address] Sep, [facility] [address] [id number] [address] [place] [address], [place] [address] Sep, [facility] [address] [id number] [address] [place] [address], [place] [address] Sep, [facility] [address] [id number] [address] [place] [address], [place] [address] Sep, [facility] [address] [id number] [address] [place] [address], [place] [address] Sep, [facility] [address] [id number] [address] [place] [address], [place] [address] Aug, [facility] [address] [id number] [address] [place] [address], [place] [address] Aug, [facility] [address] [id number] [address] [place] [address], [place] [address] Aug, [facility] [address] [id number] [address] [place] [address], [place] [address] Aug, [facility] [address] [id number] [address] [place] [address], [place] [address] Aug, [facility] [address] [id number] [address] [place] [address], [place] [address] Aug, [facility] [address] [id number] [address] [place] [address], [place] [address] Aug, [facility] [address] [id number] [address] [place] [address], [place] [address] Aug, [facility] [address] [id number] [address] [place] [address], [place] [address] Aug, [facility] [address] [id number] [address] [place] [address], [place] [address] Aug, [facility] [address] [id number] [address] [place] [address], [place] [address] Jun, [facility] [address] [id number] [address] [place] [address], [place] [address] Jun, [facility] [address] [id number] [address] [place] [address], [place] [address] Jun, [facility] [address] [id number] [address] [place] [address], [place] [address] Jun, [facility] [address] [id number] [address] [place] [address], [place] [address] Jun, [facility] [address] [id number] [address] [place] [address], [place] [address] Jun, [facility] [address] [id number] [address] [place] [address], [place] [address] Jun, [facility] [address] [id number] [address] [place] [address], [place] [address] Jun, [facility] [address] [id number] [address] [place] [address], [place] [address] Jun, [facility] [address] [id number] [address] [place] [address], [place] [address] Jun, [facility] [address] [id number] [facility] [place] [address] Jun, [facility] [address] [id number] [facility] [place] [address] Jun, [facility] [address] [id number] [facility] [place] [address] Apr, [facility] [address] [id number] [address] [place] [address], [place] [address] Apr, [facility] [address] [id number] [address] [place] [address], [place] [address] Jan, [facility] [address] [id number] [address] [place] [address], [place] [address] Jan, [facility] [address] [id number] [address] [place] [address], [place] [address] Jan, [facility] [address] [id number] [address] [place] [address], [place] [address] Jan, [facility] [address] [id number] [address] [place] [address], [place] [address] Jan, [facility] [address] [id number] [address] [place] [address], [place] [address] Jan, [facility] [address] [id number] [address] [place] [address], [place] [address] Jan, [facility] [address] [place] [id number] Jan, [facility] [address] [id number] [address] [place] [address], [place] [address] Dec, [facility] [address] [id number] [address] [place] [address], [place] [address] Dec, [facility] [address] [id number] [address] [place] [address], [place] [address] Dec, [facility] [address] [id number] [address] [place] [address], [place] [address] Dec, [facility] [address] [facility] [id number] [address] [place] [address] Dec, [facility] [address] [facility] [id number] [address] [place] [address] Dec, [facility] [address] [facility] [id number] [address] [place] [address] Dec, [facility] [address] [facility] [id number] [address] [place] [address] Nov, [facility] [address] [facility] [id number] [address] [place] [address] Nov, IMMUNIZATIONS No Known Immunizations SOCIAL HISTORY Never Assessed REASON FOR VISIT EMR-[facility] PLAN OF CARE VITAL SIGNS MEDICATIONS Unknown Medications RESULTS No Results PROCEDURES No Known procedures INSTRUCTIONS MEDICATIONS ADMINISTERED No Known Medications
== END 2019-07-15 22:55 | disposition home or self-care (01) ==
LOC: EDUNIT# 21:46 → ER FS 21:47
DX: R51 Headache (principal); J43.9 Emphysema, unspecified; E11.40 Type 2 diabetes mellitus with diabetic neuropathy, unspecified; K21.9 Gastro-esophageal reflux disease without esophagitis; F31.9 Bipolar disorder, unspecified; F20.9 Schizophrenia, unspecified; Z79.4 Long term (current) use of insulin; Z79.01 Long term (current) use of anticoagulants; Z77.22 Contact with and (suspected) exposure to environmental tobacco smoke (acute) (chronic)
CPT/HCPCS: 36415; 70450; 82962; 85610

== ENCOUNTER 2019-07-18 08:15 | Emergency (ER) | payer SELFPAY ==
[~2019-07-18] VITALS: Ht 157.5 cm; Wt 144.1 kg
--- NOTE | 2019-07-18 08:42 | ED General ---
General Chief Complaint: Nasal Problems Stated Complaint: NASAL/CHEST CONGESTION; HEADACHE Nursing Triage Note: Patient reports she has recently moved here from [place], states she has an appointment to get established with new PCP, Dr. Carter, on 08/01/19. She states she is out of two of her prescription medications, trazadone and haldol, and has been unable to sleep and has been having hallucinations d/t not having these medications for 4 days. She also reports a "sinus headache", nasal congestion and drainage, and some cough and chest congestion. Patient reports she has COPD/emphysema and wears oxygen at 2 liters 25/12 at home. She reports her shortness of breath is "a little" worse than usual. Nursing Sepsis Screen: No Definite Risk History of Present Illness Date Seen by Provider: Jul 18, 2019 Time Seen by Provider: 08:34 Initial Comments 49-year-old female has recently moved from [place], has appointment to establish a primary physician in 2 weeks suffers from morbid obesity O2 dependent COPD insulin-dependent diabetes history of DVT on Coumadin she was seen in this ER just 3 days ago with a headache CT of her head was negative showing clear sinuses however she reports that the next day she started to have sinus pressure nasal congestion with clear nasal discharge no known fever no ST or earache, only slight cough no increased dyspnea no V or D no known exposure to illness also states she has started to hear voices is supposed to be on Haldol 10 mg 3 times a day and has been out she's sure that's why, has had before, denies any command hallucinations any thoughts of harm to self or others also not sleeping, just ran out of trazadone, which she says she takes 100mg 2 po at HS Allergies and Home Medications Allergies Coded Allergies: doxycycline (Unverified Allergy, Mild, nauseated, 08/01/09) spinach (Unverified Allergy, Mild, 08/01/09) alprazolam (Verified Allergy, Unknown, 07/18/19) diazepam (Verified Allergy, Unknown, 07/18/19) sumatriptan (Verified Allergy, Unknown, 07/18/19) Home Medications Atorvastatin 20 Mg Tablet, 20 MG PO HS, (Reported) Azithromycin 250 Mg Tablet, 250 MG PO UD TAKE 2 TABLETS ON DAY ONE THEN TAKE 1 TABLET DAILY FOR FOUR MORE DAYS Prescribed by: FIFI WALKER on 2/14/20 0851 Cephalexin Monohydrate 500 Mg Capsule, 1 EACH PO QID, (Reported) Ciprofloxacin 500 Mg Tablet, 1 TAB PO BID FOR INFECTION Prescribed by: BRAULIO NASH on 04/24/132100 Furosemide 40 Mg Tablet, 1 EACH PO BID, (Reported) PT TAKES 40MG PO BID Gabapentin 600 Mg Tab, 600 MG PO QID, (Reported) Haloperidol 10 Mg Tablet, 10 MG PO TID Prescribed by: FIFI WALKER on 07/18/19850 Hum Insulin Nph/Reg Insulin Hm 10 Ml Vial, 15 UNITS SQ TID, (Reported) Insulin Glargine,Hum.rec.anlog 300 Unit/3 Ml Insuln.pen, 10 UNITS SQ HS Prescribed by: NNEKA ROBINS on 12/14/12 114 Ipratropium [place] 0.5 Mg/2.5 Ml Nebu, 0.5 MG IH Q6H PRN, (Reported) Ipratropium/Albuterol Sulfate 4 Gm Aer.w.adap, 1 PUFF IH QID, (Reported) Loratadine 10 Mg Tablet, 10 MG PO DAILY, (Reported) Lurasidone Hcl 80 Mg Tablet, 80 MG PO HS, (Reported) Lurasidone Hcl 40 Mg Tablet, 40 MG PO DAILY, (Reported) TAKES IN AM DAILY Meclizine Hcl 25 Mg Tablet, 1 EACH PO TID PRN, (Reported) Meloxicam 7.5 Mg Tablet, 7.5 MG PO DAILY, (Reported) Nitrofurantoin/Nitrofuran Mac 100 Mg Capsule, 100 MG PO BID Prescribed by: GUALBERTO DOUGHERTY on 04/14/131755 Nystatin 1 Each Powder.ea., 0 TOP BID PRN SPRINKLE ON AFFECTED AREA Prescribed by: GUALBERTO DOUGHERTY on 04/14/131754 Olanzapine 10 Mg Tab, 10 MG PO BID PRN for ANXIETY, (Reported) Oxcarbazepine 150 Mg Tablet, 300 MG PO DAILY, (Reported) Oxycodone HCl/Acetaminophen 1 Each Tablet, 1 EACH PO Q4H PRN for PAIN-SEVERE (8- 10) Prescribed by: TASH ALARCON on 05/31/19 0058 Paroxetine Hcl 20 Mg Tablet, 20 MG PO HS, (Reported) Potassium Chloride 10 Meq Tab.prt.sr, 1 EACH PO BID WITH MEALS, (Reported) Sumatriptan 10 Gm Powder, 100 MG PO BID PRN, (Reported) Tiotropium [place] 1 Inh Aerp, 1 CAP IH DAILY, (Reported) 18 MCG CAPS/ONE INHALED DAILY Topiramate 100 Mg Tab, 200 MG PO HS, (Reported) PT TAKES 200MG TWICE DAILY AND 100MG AT NOON Topiramate 100 Mg Tab, 100 MG PO TID, (Reported) Tramadol Hcl 50 Mg Tablet, 100 MG PO Q6H PRN, (Reported) Trazodone HCl 100 Mg Tablet, 200 MG PO HS Prescribed by: FIFI WALKER on 07/18/19 0851 Trazodone Hcl 100 Mg Tab, 200 MG PO HS, (Reported) Warfarin Sodium 10 Mg Tablet, 10 MG PO DAILY@1800 Prescribed by: NNEKA ROBINS on 12/14/12 1141 Patient Home Medication List Home Medication List Reviewed: Yes Review of Systems Review of Systems Constitutional: No fever EENTM: nose congestion, other (sinus pressure) Respiratory: cough, other (denies worsening of COPD) Cardiovascular: no symptoms reported Gastrointestinal: no symptoms reported Genitourinary: no symptoms reported Musculoskeletal: no symptoms reported Skin: no symptoms reported Psychiatric/Neurological: Other (see HPI denies thoughts or plans for self harm) Hematologic/Lymphatic: No Symptoms Reported Immunological/Allergic: no symptoms reported Past Otggvvo-Bvaulm-Tybhar Hx Patient Social History Alcohol Use: Denies Use Recreational Drug Use: No Smoking Status: Current Everyday Smoker Type Used: Cigarettes 2nd Hand Smoke Exposure: Yes Recent Infectious Disease Expo: No Recent Hopitalizations: No Physical Abuse: No Sexual Abuse: No Mistreated: No Fear: No Immunizations Up To Date Date of Pneumonia Vaccine: Dec 14, 2012 Date of Influenza Vaccine: Mar 04, 2013 Seasonal Allergies Seasonal Allergies: No Past Medical History Surgeries: Yes (HIP, suprapubic catheter) Appendectomy, Gallbladder, Hysterectomy Respiratory: Yes Asthma, Pneumonia, Chronic Bronchitis, Pulmonary Embolism, COPD, Emphysema Cardiac: No Neurological: Yes Neuropathy 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 Disorders: No 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 Sexually Transmitted Disease: No HIV/AIDS: No Genitourinary: Yes Kidney Stones, Neurogenic Bladder, UTI-Chronic Gastrointestinal: Yes Abdominal Hernia, Gastroesophageal Reflux, Chronic Constipation, Irritable Bowel Musculoskeletal: Yes Arthritis, Fibromyalgia, Back Injury, Chronic Back Pain, Fractures, Spasms Endocrine: Yes Diabetes, Insulin dep, Hypothyroidsim HEENT: No Hearing Impairment: Hard of Hearing Cancer: Yes Ovarian Psychosocial: Yes ADD/ADHD, Bipolar, Schizophrenia Integumentary: No Blood Disorders: No Family Medical History No Pertinent Family Hx Physical Exam Vital Signs Vital Signs - First Documented 07/18/19 08:15 Temp 36.2 Pulse 81 Resp 20 B/P (MAP) 135/95 (108) Pulse Ox 98 O2 Delivery Room Air Capillary Refill : Less Than 3 Seconds Height, Weight, BMI Height: '" Weight: 275lbs. oz. 124.832126vn; 58.00 BMI Method:Stated General Appearance: No Apparent Distress Eyes: Bilateral Eye PERRL, Bilateral Eye EOMI HEENT: Pharynx Normal, Moist Mucous Membranes, Other (left TM injected sinuses +/- tender to percussion) Neck: Supple Respiratory: Lungs Clear Cardiovascular: Regular Rate, Rhythm Gastrointestinal: Normal Bowel Sounds, Non Tender, Soft Extremity: Non Tender Progress/Results/Core Measures Suspected Sepsis Recent Fever Within 48 Hours: No Infection Criteria Present: None New/Unexplained Altered Menta: No Sepsis Screen: No Definite Risk SIRS Temperature: Pulse: 81 Respiratory Rate: 20 Blood Pressure 135 /95 Mean: 108 Results/Orders Micro Results Microbiology 07/18/19 Influenza Types A,B Antigen (DOMENICA) - Final, Complete My Orders Orders - FIFI WALKER MD Influenza A And B Antigens (07/18/19 08:32) Vital Signs/I&O 07/18/19 08:15 Temp 36.2 Pulse 81 Resp 20 B/P (MAP) 135/95 (108) Pulse Ox 98 O2 Delivery Room Air Capillary Refill : Less Than 3 Seconds Blood Pressure Mean: 108 Progress Note : Progress Note influenza - neg Departure Impression Primary Impression: Sinusitis Qualified Codes: J01.10 - Acute frontal sinusitis, unspecified Disposition: 01 HOME, SELF-CARE Condition: Stable Departure-Patient Inst. Decision time for Depature: 08:53 Referrals: [facility] [place] (PCP/Family) Primary Care Physician Patient Instructions: Sinus Headache (DC) Scripts Azithromycin (Azithromycin) 250 Mg Tablet 250 MG PO UD, #6 TAB TAKE 2 TABLETS ON DAY ONE THEN TAKE 1 TABLET DAILY FOR FOUR MORE DAYS Prov: FIFI WALKER MD 07/18/19 Trazodone HCl (Trazodone HCl) 100 Mg Tablet 200 MG PO HS, #14 TAB Prov: FIFI WALKER MD 07/18/19 Haloperidol (Haloperidol) 10 Mg Tablet 10 MG PO TID, #21 TAB Prov: FIFI WALKER MD 07/18/19 FIFI WALKER MD Jul 18, 2019 08:42
[2019-07-18] MEDS ORDERED: AZIT250T12 PO (08:51)
[2019-07-18] MEDS ORDERED: TRAZ-190 PO (08:51)
[2019-07-18] MEDS ORDERED: HALO10TA PO (08:51)
[2019-07-18 09:10] VITALS: BP 151/95
== END 2019-07-18 09:10 | disposition home or self-care (01) ==
LOC: EDUNIT# 08:15 → ER FS 08:17
DX: J32.9 Chronic sinusitis, unspecified (principal); J43.9 Emphysema, unspecified; E11.40 Type 2 diabetes mellitus with diabetic neuropathy, unspecified; K21.9 Gastro-esophageal reflux disease without esophagitis; F31.9 Bipolar disorder, unspecified; F20.9 Schizophrenia, unspecified; F17.210 Nicotine dependence, cigarettes, uncomplicated; Z86.711 Personal history of pulmonary embolism; Z88.1 Allergy status to other antibiotic agents; Z88.8 Allergy status to other drugs, medicaments and biological substances; Z79.4 Long term (current) use of insulin; Z79.01 Long term (current) use of anticoagulants; Z85.43 Personal history of malignant neoplasm of ovary
CPT/HCPCS: 87804

== ENCOUNTER 2019-07-21 22:26 | Emergency (ER) | payer SELFPAY ==
[~2019-07-21] VITALS: Ht 157.4 cm; Wt 143.7 kg
[~2019-07-21 22:26] MED LIST changes: +AZIT250T12 PO; +HALO10TA PO; +TRAZ-190 PO
--- NOTE | 2019-07-21 22:31 | ED Chest Pain ---
General Stated Complaint: SOB Source: patient, EMS History of Present Illness Date Seen by Provider: Jul 21, 2019 Time Seen by Provider: 22:31 Initial Comments 49-year-old female presenting with complaints of shortness of breath and left- sided chest pain. She states that she feels like there is pressure and tightness in her chest. She has been more short of breath than normal. She also felt like she was having numbness in her arm and face. She is out of her chronic pain medication and she also is out of her Haldol. She feels like she had improvement with the breathing treatment by EMS. The symptoms have been constant since aroun d 6:30 PM. They are worse with exertion and movement Allergies and Home Medications Allergies Coded Allergies: doxycycline (Unverified Allergy, Mild, nauseated, 08/01/09) spinach (Unverified Allergy, Mild, 08/01/09) alprazolam (Verified Allergy, Unknown, 07/18/19) diazepam (Verified Allergy, Unknown, 07/18/19) sumatriptan (Verified Allergy, Unknown, 07/18/19) Home Medications Atorvastatin 20 Mg Tablet, 20 MG PO HS, (Reported) Azithromycin 250 Mg Tablet, 250 MG PO UD TAKE 2 TABLETS ON DAY ONE THEN TAKE 1 TABLET DAILY FOR FOUR MORE DAYS Prescribed by: FIFI WALKER on 07/18/19 0851 Cephalexin Monohydrate 500 Mg Capsule, 1 EACH PO QID, (Reported) Ciprofloxacin 500 Mg Tablet, 1 TAB PO BID FOR INFECTION Prescribed by: BRAULIO NASH on 04/24/13 2101 Furosemide 40 Mg Tablet, 1 EACH PO BID, (Reported) PT TAKES 40MG PO BID Gabapentin 600 Mg Tab, 600 MG PO QID, (Reported) Haloperidol 10 Mg Tablet, 10 MG PO TID Prescribed by: FIFI WALKER on 07/18/19 0851 Hum Insulin Nph/Reg Insulin Hm 10 Ml Vial, 15 UNITS SQ TID, (Reported) Insulin Glargine,Hum.rec.anlog 300 Unit/3 Ml Insuln.pen, 10 UNITS SQ HS Prescribed by: NNEKA ROBINS on 12/14/12 1141 Ipratropium [place] 0.5 Mg/2.5 Ml Nebu, 0.5 MG IH Q6H PRN, (Reported) Ipratropium/Albuterol Sulfate 4 Gm Aer.w.adap, 1 PUFF IH QID, (Reported) Loratadine 10 Mg Tablet, 10 MG PO DAILY, (Reported) Lurasidone Hcl 80 Mg Tablet, 80 MG PO HS, (Reported) Lurasidone Hcl 40 Mg Tablet, 40 MG PO DAILY, (Reported) TAKES IN AM DAILY Meclizine Hcl 25 Mg Tablet, 1 EACH PO TID PRN, (Reported) Meloxicam 7.5 Mg Tablet, 7.5 MG PO DAILY, (Reported) Nitrofurantoin/Nitrofuran Mac 100 Mg Capsule, 100 MG PO BID Prescribed by: GUALBERTO DOUGHERTY on 04/14/131755 Nystatin 1 Each Powder.ea., 0 TOP BID PRN SPRINKLE ON AFFECTED AREA Prescribed by: GUALBERTO DOUGHERTY on 04/14/131754 Olanzapine 10 Mg Tab, 10 MG PO BID PRN for ANXIETY, (Reported) Oxcarbazepine 150 Mg Tablet, 300 MG PO DAILY, (Reported) Oxycodone HCl/Acetaminophen 1 Each Tablet, 1 EACH PO Q4H PRN for PAIN-SEVERE (8- 10) Prescribed by: TASH ALARCON on 05/31/19 0058 Oxycodone HCl/Acetaminophen 1 Each Tablet, 1 TAB PO Q6H PRN for PAIN-SEVERE (8- 10) Prescribed by: TASH ALARCON on 07/22/19156 Paroxetine Hcl 20 Mg Tablet, 20 MG PO HS, (Reported) Potassium Chloride 10 Meq Tab.prt.sr, 1 EACH PO BID WITH MEALS, (Reported) Prednisone 20 Mg Tab, 40 MG PO DAILY Prescribed by: TASH ALARCON on 07/22/19156 Sumatriptan 10 Gm Powder, 100 MG PO BID PRN, (Reported) Tiotropium [place] 1 Inh Aerp, 1 CAP IH DAILY, (Reported) 18 MCG CAPS/ONE INHALED DAILY Topiramate 100 Mg Tab, 200 MG PO HS, (Reported) PT TAKES 200MG TWICE DAILY AND 100MG AT NOON Topiramate 100 Mg Tab, 100 MG PO TID, (Reported) Tramadol Hcl 50 Mg Tablet, 100 MG PO Q6H PRN, (Reported) Trazodone HCl 100 Mg Tablet, 200 MG PO HS Prescribed by: FIFI WALKER on 07/18/19 0851 Trazodone Hcl 100 Mg Tab, 200 MG PO HS, (Reported) Warfarin Sodium 10 Mg Tablet, 10 MG PO DAILY@1800 Prescribed by: NNEKA ROBINS on 12/14/12 1141 Patient Home Medication List Home Medication List Reviewed: Yes Review of Systems Review of Systems Constitutional: No chills, No fever; malaise EENTM: No Symptoms Reported Respiratory: Cough, Shortness of Air, SOA With Exertion, SOA at Rest, Wheezing Cardiovascular: See HPI, Chest Pain Gastrointestinal: Denies Abdomen Distended, Denies Abdominal Pain, Denies Nausea, Denies Vomiting Genitourinary: Denies Burning Musculoskeletal: neck pain Skin: no symptoms reported Psychiatric/Neurological: Paresthesia (left arm) Past Ibuxfmb-Etiheb-Rkbxkt Hx Past Med/Social Hx: Reviewed Nursing Past Med/Soc Hx Patient Social History Type Used: Cigarettes 2nd Hand Smoke Exposure: Yes Recent Hopitalizations: No Immunizations Up To Date Date of Pneumonia Vaccine: Dec 14, 2012 Date of Influenza Vaccine: Mar 04, 2013 Seasonal Allergies Seasonal Allergies: No Past Medical History Surgeries: Yes (HIP, suprapubic catheter) Appendectomy, Gallbladder, Hysterectomy Respiratory: Yes Asthma, Pneumonia, Chronic Bronchitis, Pulmonary Embolism, COPD, Emphysema Cardiac: No Neurological: Yes Neuropathy 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 Disorders: No 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 Transmitted Disease: No HIV/AIDS: No Genitourinary: Yes Kidney Stones, Neurogenic Bladder, UTI-Chronic Gastrointestinal: Yes Abdominal Hernia, Gastroesophageal Reflux, Chronic Constipation, Irritable Bowel Musculoskeletal: Yes Arthritis, Fibromyalgia, Back Injury, Chronic Back Pain, Fractures, Spasms Endocrine: Yes Diabetes, Insulin dep, Hypothyroidsim HEENT: No Hearing Impairment: Hard of Hearing Cancer: Yes Ovarian Psychosocial: Yes ADD/ADHD, Bipolar, Schizophrenia Integumentary: No Blood Disorders: No Family Medical History No Pertinent Family Hx Physical Exam Vital Signs Vital Signs - First Documented 07/21/19 22:28 Temp 37.0 Pulse 103 Resp 18 B/P (MAP) 137/80 (99) Pulse Ox 93 O2 Delivery Room Air Capillary Refill : Height, Weight, BMI Height: '" Weight: 275lbs. oz. 124.225025va; 58.00 BMI Method:Stated General Appearance: No Apparent Distress, WD/WN HEENT: PERRL/EOMI, Normal ENT Inspection, Pharynx Normal Neck: Full Range of Motion, Normal Inspection, Non Tender, Supple Respiratory: Lungs Clear, Normal Breath Sounds, No Accessory Muscle Use, No Respiratory Distress, Other (tender to palpation of her chest) Cardiovascular: Regular Rate, Rhythm, Normal Peripheral Pulses Gastrointestinal: Normal Bowel Sounds, No Pulsatile Mass, Soft Extremity: Normal Capillary Refill, Normal Inspection, No Pedal Edema Neurologic/Psychiatric: Alert, Oriented x3, No Motor/Sensory Deficits Skin: Normal Color, Warm/Dry Progress/Results/Core Measures Results/Orders Lab Results Laboratory Tests Test 07/21/19 22:32 Range/Units White Blood Count 12.5 H 4.3-11.0 10^3/uL Red Blood Count 4.56 4.35-5.85 10^6/uL Hemoglobin 14.7 11.5-16.0 G/DL Hematocrit 45 35-52 % Mean Corpuscular Volume 98 80-99 FL Mean Corpuscular Hemoglobin 32 25-34 PG Mean Corpuscular Hemoglobin Concent 33 32-36 G/DL Red Cell Distribution Width 13.3 10.0-14.5 % Platelet Count 184 130-400 10^3/uL Mean Platelet Volume 10.2 7.4-10.4 FL Neutrophils (%) (Auto) 73 42-75 % Lymphocytes (%) (Auto) 18 12-44 % Monocytes (%) (Auto) 6 0-12 % Eosinophils (%) (Auto) 2 0-10 % Basophils (%) (Auto) 1 0-10 % Neutrophils # (Auto) 9.2 H 1.8-7.8 X 10^3 Lymphocytes # (Auto) 2.3 1.0-4.0 X 10^3 Monocytes # (Auto) 0.7 0.0-1.0 X 10^3 Eosinophils # (Auto) 0.2 0.0-0.3 10^3/uL Basophils # (Auto) 0.1 0.0-0.1 10^3/uL Prothrombin Time 12.7 12.2-14.7 SEC INR Comment 0.9 0.8-1.4 Activated Partial Thromboplast Time 33 24-35 SEC Sodium Level 139 135-145 MMOL/L Potassium Level 3.4 L 3.6-5.0 MMOL/L Chloride Level 101 98-107 MMOL/L Carbon Dioxide Level 23 21-32 MMOL/L Anion Gap 15 H 5-14 MMOL/L Blood Urea Nitrogen 18 7-18 MG/DL Creatinine 0.91 0.60-1.30 MG/DL Estimat Glomerular Filtration Rate > 60 BUN/Creatinine Ratio 20 Glucose Level 188 H 70-105 MG/DL Calcium Level 8.5 8.5-10.1 MG/DL Corrected Calcium 8.4 L 8.5-10.1 MG/DL Magnesium Level 1.6 1.6-2.4 MG/DL Total Bilirubin 0.2 0.1-1.0 MG/DL Aspartate Amino Transf (AST/SGOT) 13 5-34 U/L Alanine Aminotransferase (ALT/SGPT) 16 0-55 U/L Alkaline Phosphatase 162 H 40-136 U/L Troponin I < 0.30 <0.30 NG/ML Pro-B-Type Natriuretic Peptide 25.1 <75.0 PG/ML Total Protein 6.9 6.4-8.2 GM/DL Albumin 4.1 3.2-4.5 GM/DL Lipase 55 8-78 U/L My Orders Orders - TASH ALARCON MD Cbc With Automated Diff (07/21/19 22:30) Magnesium (07/21/19 22:30) Chest 1 View Ap/Pa Only (07/21/19 22:30) Ekg Tracing (07/21/19 22:30) Comprehensive Metabolic Panel (07/21/19 22:30) Protime With Inr (07/21/19 22:30) Partial Thromboplastin Time (07/21/19 22:30) O2 (07/21/19 22:30) Monitor-Rhythm Ecg Trace Only (07/21/19 22:30) Ed Iv/Invasive Line Start (07/21/19 22:30) Lipase (07/21/19 22:30) Troponin I Fs (07/21/19 22:30) Probnp Fs (07/21/19 22:30) Morphine Injection (Morphine Injection (07/21/19 22:48) Albuterol/Ipra Inhalation Soln (Duoneb I (07/21/19 22:48) Svn Small Volume Nebulizer (07/21/19 22:48) Ondansetron Injection (Zofran Injectio (07/22/19 00:03) Ketorolac Injection (Toradol Injection) (07/22/19 01:07) Methylprednisolone Sod Succ (Solu-Medrol (07/22/19 01:07) Morphine Injection (Morphine Injection (07/22/19 01:07) Vital Signs/I&O 07/21/19 07/22/19 22:28 01:59 Temp 37.0 Pulse 103 98 Resp 18 20 B/P (MAP) 137/80 (99) 108/61 Pulse Ox 93 92 O2 Delivery Room Air Room Air Progress Progress Note #1: Progress Note Check labs and electrocardiogram with chest x-ray. Try breathing treatment with morphine for pain. Progress Note #2: Progress Note No acute findings on her labs or EKG and chest x-ray to account for her symptoms. This may just be more of a COPD exacerbation. Especially after several hours of constant pain was does not appear to be a cardiac event. Repeat dose of pain medicine along with steroid was given. Patient was feeling better after this and counseled that her results were stable from a cardiac standpoint. Will discharge with steroid and a few Percocet 7.5 since all she can get in with her primary next week with Dr. Carter. Initial ECG Impression Date: Jul 21, 2019 Initial ECG Impression Time: 23:06 Initial ECG Rate: 94 Initial ECG Rhythm: Normal Sinus Initial ECG Comparisson: Unchanged Comment Sinus rhythm with a heart rate of 94 bpm. MS interval 148 ms. There is no acute ST elevation. 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 QT interval 372 ms and a QTc interval 466 ms. This appears similar to prior tracings. Diagnostic Imaging Diagonstic Imaging: Xray Plain Films/CT/US/NM/MRI: chest Comments On my review of her 1 view chest x-ray she has no acute infiltrate or effusion. Departure Impression Primary Impression: COPD with acute exacerbation Additional Impressions: Chest wall pain Non-cardiac chest pain Disposition: HOME, SELF-CARE Condition: Stable Departure-Patient Inst. Decision time for Depature: 01:54 Referrals: [facility] (PCP/Family) Primary Care Physician Patient Instructions: Chest Pain That Is Not Caused by the Heart (DC), COPD Including Emphysema (DC), Exacerbation of COPD (DC) Add. Discharge Instructions: Follow up with Dr. Carter next week as scheduled. Take the steroids to help with your breathing and chest wall pain. Stop smoking to help with your cough, breathing and chest pains Scripts Oxycodone HCl/Acetaminophen (Percocet 7.5-325 mg Tablet) 1 Each Tablet 1 TAB PO Q6H PRN for PAIN-SEVERE (8-10) MDD 4 TABS for 7 Days, #16 TAB 0 Refills Prov: TASH ALARCON MD 07/22/19 Prednisone (Prednisone) 20 Mg Tab 40 MG PO DAILY for 5 Days, #10 TAB 0 Refills Prov: TASH ALARCON MD 07/22/19 TASH ALARCON MD Jul 21, 2019 22:31
[2019-07-21] MEDS ORDERED: RT-ALBUTEROL/IPRATROPIUM 3 ML (DUONEB) VIAL INH STA (22:48)
[2019-07-21] MEDS ORDERED: morphine INJ 10 MG/ML 1ML (SYR OR VIAL) IVP STA (22:48)
[2019-07-21 22:58] LABS: BASOPHILS % (AUTO) 1 % (0-10); EOSINOPHILS % (AUTO) 2 % (0-10); HEMATOCRIT 45 % (35-52); HEMOGLOBIN 14.7 G/DL (11.5-16.0); LYMPHOCYTES % (AUTO) 18 % (12-44); MEAN CORPUSCULAR HEMOGLOBIN 32 PG (25-34); MEAN CORPUSCULAR HGB CONC 33 G/DL (32-36); MEAN CORPUSCULAR VOLUME 98 FL (80-99); MEAN PLATELET VOLUME 10.2 FL (7.4-10.4); MONOCYTES % (AUTO) 6 % (0-12); NEUTROPHILS % (AUTO) 73 % (42-75); PLATELET COUNT 184 10^3/uL (130-400); RED CELL DISTRIBUTION WIDTH 13.3 % (10.0-14.5); WHITE BLOOD COUNT 12.5 10^3/uL (4.3-11.0)
[2019-07-21 22:59] LABS: BASOPHILS # (AUTO) 0.1 10^3/uL (0.0-0.1); EOSINOPHILS # (AUTO) 0.2 10^3/uL (0.0-0.3); LYMPHOCYTES # (AUTO) 2.3 X 10^3 (1.0-4.0); MONOCYTES # (AUTO) 0.7 X 10^3 (0.0-1.0); NEUTROPHILS # (AUTO) 9.2 X 10^3 (1.8-7.8)
[2019-07-21 23:21] LABS: INR 0.9 (0.8-1.4); PROTHROMBIN TIME PATIENT 12.7 SEC (12.2-14.7)
[2019-07-21 23:22] LABS: ALKALINE PHOSPHATASE 162 U/L (40-136); BILIRUBIN,TOTAL 0.2 MG/DL (0.1-1.0); BUN/CREATININE RATIO 20; CALCIUM 8.5 MG/DL (8.5-10.1); CARBON DIOXIDE 23 MMOL/L (21-32); CHLORIDE 101 MMOL/L (98-107); CREATININE SERUM 0.91 MG/DL (0.60-1.30); GFR ESTIMATED > 60; GLUCOSE 188 MG/DL (70-105); MAGNESIUM 1.6 MG/DL (1.6-2.4); POTASSIUM 3.4 MMOL/L (3.6-5.0); SODIUM 139 MMOL/L (135-145)
[2019-07-21 23:23] LABS: ALANINE AMINOTRANSFERASE 16 U/L (0-55); ALBUMIN 4.1 GM/DL (3.2-4.5); LIPASE 55 U/L (8-78); TOTAL PROTEIN 6.9 GM/DL (6.4-8.2)
[2019-07-22] MEDS ORDERED: ONDANSETRON 4 MG/2 ML (SDV) Z0FRAN IVP STA (00:03)
[2019-07-22] MEDS ORDERED: KETOROLAC 30 MG/ML VIAL IVP STA (01:07)
[2019-07-22] MEDS ORDERED: methylPREDNISolone 125 MG (Solu-MEDROL) VIAL IVP STA (01:07)
[2019-07-22] MEDS ORDERED: morphine INJ 10 MG/ML 1ML (SYR OR VIAL) IVP STA (01:07)
[2019-07-22] MEDS ORDERED: OXYC1TAB16 PO (01:57)
[2019-07-22] MEDS ORDERED: PRD20T PO (01:57)
[2019-07-22 01:59] VITALS: BP 108/61
--- NOTE | 2019-07-22 05:50 | Diagnostic Imaging Report ---
Clinical indication: Patient with chest pain. Exam: Portable chest x-ray upright view. Comparisons: Portable chest x-ray dated 12/13/2012. Findings: Lungs/pleura: There is interval development of minimal left basilar atelectasis versus infiltrate. Otherwise, lungs are clear and stable. There is no pneumothorax. There is no pleural effusion. Mediastinum: Unremarkable. Pulmonary vasculature: Unremarkable. Heart: Unremarkable. Bones/extrathoracic soft tissue: There are hypertrophic spurs involving the thoracic spine. Impression: Interval development of mild left basilar atelectasis versus infiltrate. Dictated by: Dictated on workstation # [id number]
== END 2019-07-22 01:59 | disposition home or self-care (01) ==
LOC: EDUNIT# 22:26 → ER FS 22:27
DX: J44.1 Chronic obstructive pulmonary disease with (acute) exacerbation (principal); R07.89 Other chest pain; E11.40 Type 2 diabetes mellitus with diabetic neuropathy, unspecified; K21.9 Gastro-esophageal reflux disease without esophagitis; F31.9 Bipolar disorder, unspecified; F20.9 Schizophrenia, unspecified; Z79.4 Long term (current) use of insulin; Z79.01 Long term (current) use of anticoagulants; Z77.22 Contact with and (suspected) exposure to environmental tobacco smoke (acute) (chronic); Z85.43 Personal history of malignant neoplasm of ovary
CPT/HCPCS: 36415; 71045; 80053; 83690; 83735; 83880; 84484; 85025; 85610; 85730; 93005; 93041; 96374; 96375; 96376

== ENCOUNTER 2019-07-27 14:48 | Emergency (ER) | payer SELFPAY ==
[~2019-07-27 14:48] MED LIST changes: +OXYC1TAB16 PO; +PRD20T PO; -TRAZ-190 PO; +TRAZ-227 PO
[2019-07-27] MEDS ORDERED: RT-ALBUTEROL/IPRATROPIUM 3 ML (DUONEB) VIAL ONE (14:49)
[2019-07-27] MEDS ORDERED: RT-ALBUTEROL/IPRATROPIUM 3 ML (DUONEB) VIAL INH ONE (15:00)
[2019-07-27] MEDS ORDERED: RT-ALBUTEROL SULF 2.5 MG/3 ML PRE-MIX VIAL INH ONE (15:15)
--- NOTE | 2019-07-27 15:19 | ED General ---
General Chief Complaint: General Problems/Pain Stated Complaint: SOA Nursing Triage Note: Two days ago her doctor increased her venlafaxine dose. Since then she has been groggy and has fallen several times. Thinks she is getting too much medication. Has also been short of breath since yesterday and has been wheezy and weak. Wears 2 L oxygen at home Nursing Sepsis Screen: No Definite Risk History of Present Illness Date Seen by Provider: Jul 27, 2019 Time Seen by Provider: 15:12 Initial Comments 49-year-old female morbidly obese COPD history of DVT and PE IDDM seizures psych issues takes Haldol zyprexa and as noted above recently had one of her med doses increased has a nebulizer at home to do breathing treatments but has done none today has oxygen had been on prednisone until recently but is now out has been prescribed CPAP but doesn't have or isn't using brought to the ER she says by her in private vehicle Complains of shortness of breath wheezing she's been weak she fell over today left shoulder sore Does take narcotic pain meds but claims not to have taken any today is pretty sleepy tends to fall asleep when asked whether she had taken an overdose she immediately was totally awake and alert and denying having done any such thing Allergies and Home Medications Allergies Coded Allergies: doxycycline (Unverified Allergy, Mild, nauseated, 08/01/09) spinach (Unverified Allergy, Mild, 08/01/09) alprazolam (Verified Allergy, Unknown, 07/18/19) diazepam (Verified Allergy, Unknown, 07/18/19) sumatriptan (Verified Allergy, Unknown, 07/18/19) Home Medications Atorvastatin 20 Mg Tablet, 20 MG PO HS, (Reported) Azithromycin 250 Mg Tablet, 250 MG PO UD TAKE 2 TABLETS ON DAY ONE THEN TAKE 1 TABLET DAILY FOR FOUR MORE DAYS Prescribed by: FIFI WALKER on 07/18/19 0851 Cephalexin Monohydrate 500 Mg Capsule, 1 EACH PO QID, (Reported) Ciprofloxacin 500 Mg Tablet, 1 TAB PO BID FOR INFECTION Prescribed by: BRAULIO NASH on 04/24/13 2101 Furosemide 40 Mg Tablet, 1 EACH PO BID, (Reported) PT TAKES 40MG PO BID Gabapentin 600 Mg Tab, 600 MG PO QID, (Reported) Haloperidol 10 Mg Tablet, 10 MG PO TID Prescribed by: FIFI WALKER on 07/18/19 0851 Hum Insulin Nph/Reg Insulin Hm 10 Ml Vial, 15 UNITS SQ TID, (Reported) Insulin Glargine,Hum.rec.anlog 300 Unit/3 Ml Insuln.pen, 10 UNITS SQ HS Prescribed by: NNEKA ROBINS on 12/14/12 1141 Ipratropium [place] 0.5 Mg/2.5 Ml Nebu, 0.5 MG IH Q6H PRN, (Reported) Ipratropium/Albuterol Sulfate 4 Gm Aer.w.adap, 1 PUFF IH QID, (Reported) Loratadine 10 Mg Tablet, 10 MG PO DAILY, (Reported) Lurasidone Hcl 80 Mg Tablet, 80 MG PO HS, (Reported) Lurasidone Hcl 40 Mg Tablet, 40 MG PO DAILY, (Reported) TAKES IN AM DAILY Meclizine Hcl 25 Mg Tablet, 1 EACH PO TID PRN, (Reported) Meloxicam 7.5 Mg Tablet, 7.5 MG PO DAILY, (Reported) Nitrofurantoin/Nitrofuran Mac 100 Mg Capsule, 100 MG PO BID Prescribed by: GUALBERTO DOUGHERTY on 04/14/131755 Nystatin 1 Each Powder.ea., 0 TOP BID PRN SPRINKLE ON AFFECTED AREA Prescribed by: GUALBERTO DOUGHERTY on 04/14/131754 Olanzapine 10 Mg Tab, 10 MG PO BID PRN for ANXIETY, (Reported) Oxcarbazepine 150 Mg Tablet, 300 MG PO DAILY, (Reported) Oxycodone HCl/Acetaminophen 1 Each Tablet, 1 EACH PO Q4H PRN for PAIN-SEVERE (8- 10) Prescribed by: TASH LAARCON on 05/31/19 0058 Oxycodone HCl/Acetaminophen 1 Each Tablet, 1 TAB PO Q6H PRN for PAIN-SEVERE (8- 10) Prescribed by: TASH ALARCON on 07/22/19 015 Paroxetine Hcl 20 Mg Tablet, 20 MG PO HS, (Reported) Potassium Chloride 10 Meq Tab.prt.sr, 1 EACH PO BID WITH MEALS, (Reported) Prednisone 20 Mg Tab, 40 MG PO DAILY Prescribed by: TASH ALARCON on 07/22/19 015 Sumatriptan 10 Gm Powder, 100 MG PO BID PRN, (Reported) Tiotropium [place] 1 Inh Aerp, 1 CAP IH DAILY, (Reported) 18 MCG CAPS/ONE INHALED DAILY Topiramate 100 Mg Tab, 200 MG PO HS, (Reported) PT TAKES 200MG TWICE DAILY AND 100MG AT NOON Topiramate 100 Mg Tab, 100 MG PO TID, (Reported) Tramadol Hcl 50 Mg Tablet, 100 MG PO Q6H PRN, (Reported) Trazodone HCl 100 Mg Tablet, 200 MG PO HS Prescribed by: FIFI WALKER on 07/18/19 0851 Trazodone Hcl 100 Mg Tab, 200 MG PO HS, (Reported) Warfarin Sodium 10 Mg Tablet, 10 MG PO DAILY@1800 Prescribed by: NNEKA ROBINS on 12/14/12 1141 Patient Home Medication List Home Medication List Reviewed: Yes Review of Systems Review of Systems Constitutional: no symptoms reported; No fever EENTM: No hoarseness, No throat pain Respiratory: cough, wheezing Cardiovascular: no symptoms reported Gastrointestinal: no symptoms reported Genitourinary: no symptoms reported Musculoskeletal: back pain (lower) Skin: no symptoms reported Psychiatric/Neurological: No Symptoms Reported Hematologic/Lymphatic: No Symptoms Reported Past Gnntkwf-Lvanhl-Iebfph Hx Patient Social History Alcohol Use: Denies Use Recreational Drug Use: No Type Used: Cigarettes 2nd Hand Smoke Exposure: Yes Recent Foreign Travel: No Contact w/Someone Who Travel: No Recent Infectious Disease Expo: No Recent Hopitalizations: No Physical Abuse: No Sexual Abuse: No Mistreated: No Fear: No Immunizations Up To Date Date of Pneumonia Vaccine: Dec 14, 2012 Date of Influenza Vaccine: Mar 04, 2013 Seasonal Allergies Seasonal Allergies: No Past Medical History Surgeries: Yes (HIP, suprapubic catheter, Dental) Appendectomy, Gallbladder, Hysterectomy, Orthopedic Respiratory: Yes Asthma, Pneumonia, Chronic Bronchitis, Pulmonary Embolism, COPD, Emphysema Cardiac: Yes (CHF) Neurological: Yes Neuropathy 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 Disorders: No 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 Sexually Transmitted Disease: No HIV/AIDS: No Genitourinary: Yes Kidney Stones, Neurogenic Bladder, UTI-Chronic Gastrointestinal: Yes Abdominal Hernia, Gastroesophageal Reflux, Chronic Constipation, Irritable Bowel Musculoskeletal: Yes Arthritis, Fibromyalgia, Back Injury, Chronic Back Pain, Fractures, Spasms Endocrine: Yes Diabetes, Insulin dep, Hypothyroidsim HEENT: No Hearing Impairment: Hard of Hearing Cancer: Yes Ovarian Psychosocial: Yes ADD/ADHD, Bipolar, Schizophrenia Integumentary: No Blood Disorders: No Family Medical History No Pertinent Family Hx Physical Exam Vital Signs Capillary Refill : Less Than 3 Seconds Height, Weight, BMI Height: '" Weight: 275lbs. oz. 124.336746gx; 58.00 BMI Method:Stated General Appearance: No Apparent Distress Eyes: Bilateral Eye PERRL, Bilateral Eye EOMI HEENT: TMs Normal, Pharynx Normal, Other (tongue dry) Neck: Supple Respiratory: Other (diffuse mild exp wheezing) Cardiovascular: Regular Rate, Rhythm Gastrointestinal: Normal Bowel Sounds, Non Tender, Soft Extremity: Non Tender; No Pedal Edema Progress/Results/Core Measures Suspected Sepsis Recent Fever Within 48 Hours: No Infection Criteria Present: Suspected New Infection New/Unexplained Altered Menta: No Sepsis Screen: No Definite Risk SIRS Temperature: Pulse: 104 Respiratory Rate: 17 Blood Pressure 135 /86 Mean: 102 Results/Orders Lab Results Micro Results My Orders Medications Given in ED Vital Signs/I&O Capillary Refill : Less Than 3 Seconds Blood Pressure Mean: 102 Progress Note : Progress Note EKG shows a sinus rhythm at a rate of 98 with no acute changes CXR - nothing acute L shoulder - nothing acute Hemoglobin 13.8 white blood count 12,300 BMP shows a glucose of 234 troponin negative creatinine is 0.76 patient states she is taking Coumadin but her INR is 1.0 d-dimer is elevated above our normal range at 0.68 CT chest shows no PE Patient and has been requests transfer to [facility] have discussed with Dr. Bautista to potentially accept the patient in transfer there The blood gas pH is gone from 7.28-7.31 PCO2 has gone from 60-61 PO2 is gone from 73-82 The meantime the UA has returned and is grossly infected have vicente Bautista is actually nearby and there wants to come see the patient himself and then will, as I understand it, arranged to transfer etc. Departure Impression Primary Impression: Respiratory insufficiency Disposition: 02 XFER SHT-TRM HOSP (per pt request transfer to [facility]) Condition: Stable Transfer Transfer Reason: Patient preference Transfer Facility: Dr. Bautista here seeing pt pt to be admitted to [place] Method of Transfer: EMS Departure-Patient Inst. Referrals: [facility] (PCP/Family) Primary Care Physician FIFI WALKER MD Jul 27, 2019 15:19
[2019-07-27 15:35] LABS: BASOPHILS % (AUTO) 0 % (0-10); EOSINOPHILS % (AUTO) 2 % (0-10); HEMATOCRIT 43 % (35-52); HEMOGLOBIN 13.8 G/DL (11.5-16.0); LYMPHOCYTES % (AUTO) 19 % (12-44); MEAN CORPUSCULAR HEMOGLOBIN 32 PG (25-34); MEAN CORPUSCULAR HGB CONC 32 G/DL (32-36); MEAN CORPUSCULAR VOLUME 101 FL (80-99); MEAN PLATELET VOLUME 10.6 FL (7.4-10.4); MONOCYTES % (AUTO) 7 % (0-12); NEUTROPHILS # (AUTO) 8.7 X 10^3 (1.8-7.8); NEUTROPHILS % (AUTO) 71 % (42-75); PLATELET COUNT 178 10^3/uL (130-400); RED CELL DISTRIBUTION WIDTH 13.4 % (10.0-14.5); WHITE BLOOD COUNT 12.3 10^3/uL (4.3-11.0)
[2019-07-27 15:36] LABS: BASOPHILS # (AUTO) 0.1 10^3/uL (0.0-0.1); EOSINOPHILS # (AUTO) 0.2 10^3/uL (0.0-0.3); LYMPHOCYTES # (AUTO) 2.4 X 10^3 (1.0-4.0); MONOCYTES # (AUTO) 0.9 X 10^3 (0.0-1.0)
[2019-07-27 15:40] LABS: ABG BASE EXCESS 0.3 MMOL/L (-2.5-2.5); ABG OXYGEN SATURATION 92 % (94-100); ABG PCO2 60 MMHG (35-45); ABG PH 7.28 (7.37-7.43); ABG PO2 73 MMHG (79-93); ALLENS TEST YES-POS; INSPIRED O2 2L; VENTILATOR NO
[2019-07-27 15:50] LABS: FIBRIN DEGRADATION PRODUCTS 0.68 UG/ML (0.00-0.49)
[2019-07-27 15:52] LABS: BUN/CREATININE RATIO 17; CARBON DIOXIDE 26 MMOL/L (21-32); CHLORIDE 101 MMOL/L (98-107); CREATININE SERUM 0.76 MG/DL (0.60-1.30); GFR ESTIMATED > 60; GLUCOSE 234 MG/DL (70-105); POTASSIUM 3.5 MMOL/L (3.6-5.0); SODIUM 138 MMOL/L (135-145)
--- NOTE | 2019-07-27 15:53 | Diagnostic Imaging Report ---
EXAM: Chest PA/LAT (2 view). INDICATION: Altered mental status. Falls. Short of breath. COMPARISON: 07/21/2019. FINDINGS: Normal heart size and central pulmonary vascularity. No focal pulmonary opacity, pleural effusion or pneumothorax. No acute osseous findings. No significant change. IMPRESSION: No acute cardiopulmonary findings. Dictated by: Dictated on workstation # [id number]
--- NOTE | 2019-07-27 15:54 | Diagnostic Imaging Report ---
EXAM: Shoulder 2 view left. INDICATION: Left shoulder pain. COMPARISON: None. FINDINGS: No fracture or malalignment. No suspicious osteoblastic or lytic lesions. Left lung field is clear. IMPRESSION: No acute radiographic findings in the left shoulder. Dictated by: Dictated on workstation # [id number]
--- NOTE | 2019-07-27 16:14 | NUR ---
bipap started at this time. 03/08, R 12, 50% Oxygen. oxygen titrated down to 30%. O2 sats 98%.
[2019-07-27] MEDS ORDERED: HOLD METFORMIN - RECEIVED CONTRAST 20 ML VIAL IV SCH (16:30)
[2019-07-27] MEDS ORDERED: CATHETER FLUSH 10 ML SYR IV PRN (16:30)
[2019-07-27] MEDS ORDERED: IOHEXOL 350 MG/ML 150 ML (OMNIPAQUE 350) VIAL IV ONE (16:30)
[2019-07-27] MEDS ORDERED: NS 100 ML (IVPB) BAG IV ONE (16:30)
--- NOTE | 2019-07-27 17:15 | Diagnostic Imaging Report ---
PROCEDURE: CT angiography of the chest with contrast. TECHNIQUE: Multiple contiguous axial images were obtained through the chest after uneventful bolus administration of intravenous contrast. 3D reconstructed CTA MIP acquisitions were also performed. Auto Exposure Controls were utilized during the CT exam to meet ALARA standards for radiation dose reduction. INDICATION: Shortness of breath and wheezing. FINDINGS: There are no primary nodules, masses, or infiltrates. There is no pleural or pericardial fluid. There is no pneumothorax. There is no pathologically enlarged adenopathy in the chest. The thoracic aorta is normal in caliber and without evidence of dissection. There are no filling defects seen within the pulmonary arteries to suggest a pulmonary embolism. There is fatty infiltration of the liver. Gallbladder is surgically absent. The remainder of the intra-abdominal structures are unremarkable. The osseous structures are unremarkable. IMPRESSION: 1. No acute abnormality in the chest. Specifically, there is no evidence of a pulmonary embolism or aortic dissection. 2. Fatty infiltration liver. Dictated by: Dictated on workstation # [id number]
[2019-07-27 17:56] LABS: CLARITY,URINE CLEAR; COLOR,URINE YELLOW; PH,URINE 5.5 (5-9)
[2019-07-27 17:57] LABS: BACTERIA,URINE MODERATE /HPF; BILIRUBIN,URINE NEGATIVE (NEGATIVE); GLUCOSE, URINE (UA) NEGATIVE (NEGATIVE); KETONES,URINE NEGATIVE (NEGATIVE); LEUKOCYTE ESTERASE ,URINE 2+ (NEGATIVE); NITRITE,URINE NEGATIVE (NEGATIVE); PROTEIN,URINE NEGATIVE (NEGATIVE); RBC,URINE 0-2 /HPF; WBC,URINE 25-50 /HPF
[2019-07-27 18:20] LABS: ABG OXYGEN SATURATION 95 % (94-100); ABG PCO2 61 MMHG (35-45); ABG PH 7.31 (7.37-7.43); ABG PO2 82 MMHG (79-93); ABG TCO2 32.6 MMOL/L (21.0-31.0); ALLENS TEST YES-POS
[2019-07-27 18:21] LABS: INSPIRED O2 30%; VENTILATOR NO
[2019-07-27] MEDS ORDERED: cefTRIAXone FOR IV USE 1,000 MG in WATER (STERILE) FOR INJECTION 10 ML IV ONE (18:30)
--- NOTE | 2019-07-27 18:47 | NUR ---
Dr Bautista here to see patient. Told to call [phone] at [facility] for patient room information.
[2019-07-27 19:16] VITALS: BP 130/85
== END 2019-07-27 19:16 | disposition short-term general hospital (02) ==
LOC: EDUNIT# 14:48 → ER FS 14:49
DX: R06.89 Other abnormalities of breathing (principal); J43.9 Emphysema, unspecified; E11.40 Type 2 diabetes mellitus with diabetic neuropathy, unspecified; I50.9 Heart failure, unspecified; K21.9 Gastro-esophageal reflux disease without esophagitis; F31.9 Bipolar disorder, unspecified; F20.9 Schizophrenia, unspecified; Z85.43 Personal history of malignant neoplasm of ovary; Z86.718 Personal history of other venous thrombosis and embolism; Z86.711 Personal history of pulmonary embolism; Z77.22 Contact with and (suspected) exposure to environmental tobacco smoke (acute) (chronic); Z88.1 Allergy status to other antibiotic agents; Z88.8 Allergy status to other drugs, medicaments and biological substances; Z79.4 Long term (current) use of insulin; Z79.01 Long term (current) use of anticoagulants
CPT/HCPCS: 36415; 71046; 71275; 73030; 80048; 81000; 82805; 84484; 85025; 85379; 85610; 87077; 87088; 87186; 87804; 93005; 96374

== ENCOUNTER 2019-08-09 22:15 | Emergency (ER) | payer SELFPAY ==
[~2019-08-09] VITALS: Ht 157.4 cm; Wt 140.1 kg
[2019-08-09] MEDS ORDERED: KETOROLAC 60 MG/2 ML VIAL IM ONE (22:45)
--- NOTE | 2019-08-09 22:53 | ED General ---
General Chief Complaint: General Problems/Pain Stated Complaint: FULL BODY PAIN Nursing Triage Note: PT ARRIVED BY POV STATING SHE HAS PAIN ALL OVER AND CANT TAKE IT ANYMORE. PT ALSO SAID THAT HER 02 HAD RUN OUT ON THE WAY TO THE ER THAT SHE NEEDED OXYGEN. PT PLACED ON 02 AT 2 LITERS. PT CONTINUES TO SMOKE. Nursing Sepsis Screen: No Definite Risk History of Present Illness Date Seen by Provider: Aug 09, 2019 Time Seen by Provider: 22:46 Initial Comments 49-year-old morbidly obese female Recently become a frequent visitor once again has COPD chronic respiratory insufficiency has a CPAP mask she is supposed to wear at night O2 history of DVT and PE insulin-dependent diabetes and seizures she was here on 07-27 admitted to [place] for CO2 retention respiratory insufficiency she presents again to this ER c/o whole body pain starting yesterday no fever no sore throat or congestion she does relate cough no vomiting or diarrhea no urinary symptoms she says she is taken just Tylenol for her aching mentions getting oxycodone in the past Allergies and Home Medications Allergies Coded Allergies: doxycycline (Unverified Allergy, Mild, nauseated, 08/01/09) spinach (Unverified Allergy, Mild, 08/01/09) alprazolam (Verified Allergy, Unknown, 07/18/19) diazepam (Verified Allergy, Unknown, 07/18/19) sumatriptan (Verified Allergy, Unknown, 07/18/19) Home Medications Atorvastatin 20 Mg Tablet, 20 MG PO HS, (Reported) Azithromycin 250 Mg Tablet, 250 MG PO UD TAKE 2 TABLETS ON DAY ONE THEN TAKE 1 TABLET DAILY FOR FOUR MORE DAYS Prescribed by: FIFI WALKER on 07/18/19 0851 Cephalexin Monohydrate 500 Mg Capsule, 1 EACH PO QID, (Reported) Ciprofloxacin 500 Mg Tablet, 1 TAB PO BID FOR INFECTION Prescribed by: BRAULIO NASH on 04/24/13 2101 Furosemide 40 Mg Tablet, 1 EACH PO BID, (Reported) PT TAKES 40MG PO BID Gabapentin 600 Mg Tab, 600 MG PO QID, (Reported) Haloperidol 10 Mg Tablet, 10 MG PO TID Prescribed by: FIFI WALKER on 07/18/19 0851 Hum Insulin Nph/Reg Insulin Hm 10 Ml Vial, 15 UNITS SQ TID, (Reported) Insulin Glargine,Hum.rec.anlog 300 Unit/3 Ml Insuln.pen, 10 UNITS SQ HS Prescribed by: NNEKA ROBINS on 12/14/12 1141 Ipratropium [place] 0.5 Mg/2.5 Ml Nebu, 0.5 MG IH Q6H PRN, (Reported) Ipratropium/Albuterol Sulfate 4 Gm Aer.w.adap, 1 PUFF IH QID, (Reported) Loratadine 10 Mg Tablet, 10 MG PO DAILY, (Reported) Lurasidone Hcl 80 Mg Tablet, 80 MG PO HS, (Reported) Lurasidone Hcl 40 Mg Tablet, 40 MG PO DAILY, (Reported) TAKES IN AM DAILY Meclizine Hcl 25 Mg Tablet, 1 EACH PO TID PRN, (Reported) Meloxicam 7.5 Mg Tablet, 7.5 MG PO DAILY, (Reported) Nitrofurantoin/Nitrofuran Mac 100 Mg Capsule, 100 MG PO BID Prescribed by: GUALBERTO DOUGHERTY on 04/14/13 175 Nystatin 1 Each Powder.ea., 0 TOP BID PRN SPRINKLE ON AFFECTED AREA Prescribed by: GUALBERTO DOUGHERTY on 04/14/13 175 Olanzapine 10 Mg Tab, 10 MG PO BID PRN for ANXIETY, (Reported) Oxcarbazepine 150 Mg Tablet, 300 MG PO DAILY, (Reported) Oxycodone HCl/Acetaminophen 1 Each Tablet, 1 EACH PO Q4H PRN for PAIN-SEVERE (8- 10) Prescribed by: TASH ALARCON on 05/31/19 0058 Oxycodone HCl/Acetaminophen 1 Each Tablet, 1 TAB PO Q6H PRN for PAIN-SEVERE (8- 10) Prescribed by: TASH ALARCON on 07/22/19156 Paroxetine Hcl 20 Mg Tablet, 20 MG PO HS, (Reported) Potassium Chloride 10 Meq Tab.prt.sr, 1 EACH PO BID WITH MEALS, (Reported) Prednisone 20 Mg Tab, 40 MG PO DAILY Prescribed by: TASH ALARCON on 07/22/19156 Sumatriptan 10 Gm Powder, 100 MG PO BID PRN, (Reported) Tiotropium [place] 1 Inh Aerp, 1 CAP IH DAILY, (Reported) 18 MCG CAPS/ONE INHALED DAILY Topiramate 100 Mg Tab, 200 MG PO HS, (Reported) PT TAKES 200MG TWICE DAILY AND 100MG AT NOON Topiramate 100 Mg Tab, 100 MG PO TID, (Reported) Tramadol Hcl 50 Mg Tablet, 100 MG PO Q6H PRN, (Reported) Trazodone HCl 100 Mg Tablet, 200 MG PO HS Prescribed by: FIFI WALKER on 07/18/19 0851 Trazodone Hcl 100 Mg Tab, 200 MG PO HS, (Reported) Warfarin Sodium 10 Mg Tablet, 10 MG PO DAILY@1800 Prescribed by: NNEKA ROBINS on 12/14/12 1141 Patient Home Medication List Home Medication List Reviewed: Yes Review of Systems Review of Systems Constitutional: No fever EENTM: no symptoms reported Respiratory: cough Cardiovascular: No chest pain, No palpitations, No syncope Gastrointestinal: no symptoms reported Genitourinary: no symptoms reported Musculoskeletal: other (achy all over perhaps more so in legs) Past Xyqdpvt-Lyiijo-Dbslwq Hx Patient Social History Type Used: Cigarettes 2nd Hand Smoke Exposure: Yes Recent Foreign Travel: No Contact w/Someone Who Travel: No Recent Infectious Disease Expo: No Recent Hopitalizations: No Physical Abuse: No Sexual Abuse: No Mistreated: No Fear: No Immunizations Up To Date Date of Pneumonia Vaccine: Dec 14, 2012 Date of Influenza Vaccine: Mar 04, 2013 Seasonal Allergies Seasonal Allergies: No Past Medical History Surgeries: Yes (HIP, suprapubic catheter, Dental) Appendectomy, Gallbladder, Hysterectomy, Orthopedic Respiratory: Yes Asthma, Pneumonia, Chronic Bronchitis, Pulmonary Embolism, COPD, Emphysema Cardiac: Yes (CHF) Neurological: Yes Neuropathy 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 Disorders: No 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 Sexually Transmitted Disease: No HIV/AIDS: No Genitourinary: Yes Kidney Stones, Neurogenic Bladder, UTI-Chronic Gastrointestinal: Yes Abdominal Hernia, Gastroesophageal Reflux, Chronic Constipation, Irritable Bowel Musculoskeletal: Yes Arthritis, Fibromyalgia, Back Injury, Chronic Back Pain, Fractures, Spasms Endocrine: Yes Diabetes, Insulin dep, Hypothyroidsim HEENT: No Hearing Impairment: Hard of Hearing Cancer: Yes Ovarian Psychosocial: Yes ADD/ADHD, Bipolar, Schizophrenia Integumentary: No Blood Disorders: No Family Medical History No Pertinent Family Hx Physical Exam Vital Signs Vital Signs - First Documented 08/09/19 22:17 Temp 36.4 Pulse 109 B/P (MAP) 140/103 (115) Pulse Ox 96 O2 Delivery Nasal Cannula Capillary Refill : Less Than 3 Seconds Height, Weight, BMI Height: '" Weight: 275lbs. oz. 124.724224oj; 56.00 BMI Method:Stated General Appearance: No Apparent Distress, Other (afebrile 96% O2 sat on 2l NC BP 130/95) Eyes: Bilateral Eye PERRL, Bilateral Eye EOMI HEENT: TMs Normal, Pharynx Normal Neck: Supple Respiratory: Rhonci Cardiovascular: Regular Rate, Rhythm, Other (sinus tach regular) Gastrointestinal: Normal Bowel Sounds, Non Tender, Soft Extremity: Normal Inspection Progress/Results/Core Measures Suspected Sepsis Recent Fever Within 48 Hours: No Infection Criteria Present: None New/Unexplained Altered Menta: No Sepsis Screen: No Definite Risk SIRS Temperature: Pulse: 109 Respiratory Rate: Blood Pressure 140 /103 Mean: 115 Results/Orders Micro Results Microbiology 08/09/19 Influenza Types A,B Antigen (DOMENICA) - Final, Complete My Orders Orders - FIFI WALKER MD Ketorolac Injection (Toradol Injection) (08/09/19 22:45) Influenza A And B Antigens (08/09/19 22:44) Medications Given in ED Current Medications Medications Dose Ordered Sig/Kurtis Route Start Time Stop Time Status Last Admin Dose Admin Ketorolac Tromethamine 60 mg ONCE ONCE IM 08/09/19 22:45 08/09/19 22:46 DC 08/09/19 22:53 60 MG Vital Signs/I&O 08/09/19 22:17 Temp 36.4 Pulse 109 B/P (MAP) 140/103 (115) Pulse Ox 96 O2 Delivery Nasal Cannula Capillary Refill : Less Than 3 Seconds Blood Pressure Mean: 115 Progress Note : Progress Note influenza - negative patient seems to be resting comfortably here no apparent need for further workup or intervention Departure Impression Primary Impression: Chronic pain Qualified Codes: G89.4 - Chronic pain syndrome Disposition: HOME, SELF-CARE Condition: Stable Departure-Patient Inst. Decision time for Depature: 23:18 Referrals: [facility] (PCP/Family) Primary Care Physician Patient Instructions: CHRONIC PAIN Add. Discharge Instructions: be sure to wear your CPAP mask All discharge instructions reviewed with patient and/or family. Voiced understanding. FIFI WALKER MD Aug 09, 2019 22:53
[2019-08-09 23:23] VITALS: BP 118/81
--- OUTSIDE RECORDS SUMMARY | 2019-08-13 05:16 | XMS REPORT ---
Author Author Ayden Payne Doctor Organization [facility] Address Unknown Phone Unavailable Care Team Providers Care Building Energy Consultant Name Role Phone Migration, Doctor Unavailable Unavailable PROBLEMS Type Condition ICD9-CM Code [id number] Code Onset Dates Condition S tatus SNOMED Code Problem Personal history of fall V15.88 Activ e 177636998 Problem Routine general medical examination at [facility] y V70.0 Active 175232210 Problem Personal history of venous thrombosis and embolism V12.51 Active 748385237 Problem Status of other artificial opening of urinary tract V44.6 Active Problem Suicide and self-inflicted p oisoning by unspecified drug or medicinal substance E950.5 Active Problem Other dyspnea and respiratory abnormalities 786.09 Active 269996907 Problem Dysuria 788.1 Active 12068717 Problem Congestive heart failure, unspecified 428.0 Active 12824251 Problem Other screening breast examination V76.19 Active 31042491 Problem Unspecified hypotension 458.9 Active 86979870 Problem Other specified disorders of bladder 596.89 Active 18558886 Problem Encounter for long-term (current) use of other medications V58.69 Active 519219153 Problem Counseling on substance use and abuse V65.42 Active 143922777 Problem Unspecified myalgia and myositis 729.1 Active 780972450 Problem Pain in soft tissues of limb 729.5 A ctive 62550242 Problem Urinary tract infection, site not specified 599.0 Active 76449546 Problem Pain in joint, lower leg 719.46 Activ e 882255693 Problem Chronic airway obstruction, not elsewhere classified 496 Active 05901311 Problem Neurogenic bladder, NOS 596.54 Active 992187434 Problem Acute sinusitis, unspecified 461.9 A ctive 18687679 Problem Personal history of pulmonary embolism V12.55 Active 835053569 Problem Acute bronchitis 466.0 Active 105 23924 Problem Unspecified hearing loss 389.9 Activ e 26128213 Problem Unspecified otalgia 388.70 Active 16605384 Problem Unspecified hereditary and idiopathic peripheral neuropath y 356.9 Active 407835702 Problem Other and unspecified hyperlipidemia 272.4 Active 55902117 Problem Altered mental status 780.97 Active 808307760 Problem Diabetes mellitus without me ntion of complication, type II or unspecified type, not stated as uncontrolled 250.00 Active 096309477 Problem Shortness of breath 786.05 Active 806353809 Problem Other malaise and fatigue 780.79 Acti ve 617150839 Problem Other chronic pain 338.29 Active 8 0567925 Problem Nondependent tobacco use disorder 305.1 Active 190496580 Problem Amphetamine and other psychostimulant de pendence, 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 Active Problem Obesity, unspecified 278.00 Active 580810142 ALLERGIES No Information ENCOUNTERS Encounter Location Date Diagnosis [facility] [address] [address] Sep, [facility] [address] [address] Sep, [facility] [address] [address] Aug, [facility] [address] [address] Aug, [facility] [address] [address] Aug, [facility] [address] [address] Aug, [facility] [address] [address] Aug, [facility] [address] [address] Aug, [facility] [address] [address] Jul, [facility] [address] [address] Jul, [facility] [address] [address] Jul, [facility] [place] [facility] [address] [id number] [place] [address] Jul, [facility] [place] [facility] [address] [id number] [place] [address] Jul, [facility] [place] [facility] [address] [id number] [place] [address] Jul, [facility] [place] [facility] [address] [id number] [place] [address] Jul, [facility] [place] [facility] [address] [id number] [place] [address] Jul, [facility] [place] [facility] [address] [id number] [place] [address] Jul, [facility] [place] [facility] [address] [id number] [place] [address] Jun, [facility] [place] [facility] [id number] [place] [address] Jun, [facility] [place] [facility] [address] [id number] [place] [address] Jun, [facility] [place] [facility] [address] [id number] [place] [address] Jun, [facility] [place] [facility] [address] [id number] [place] [address] Jun, [facility] [place] [facility] [address] [id number] [place] [address] Jun, [facility] [place] [facility] [address] [id number] [place] [address] Jun, [facility] [place] [facility] [address] [id number] [place] [address] Jun, [facility] [place] [facility] [address] [id number] [place] [address] Jun, [facility] [place] [facility] [address] [id number] [place] [address] Jun, [facility] [place] [facility] [address] [id number] [place] [address] May, [facility] [place] [facility] [address] [id number] [place] [address] May, [facility] [place] [facility] [address] [id number] [place] [address] May, [facility] [place] [facility] [address] [id number] [place] [address] May, [facility] [place] [facility] [address] [id number] [place] [address] May, [facility] [place] [facility] [address] [id number] [place] [address] May, [facility] [place] [facility] [address] [id number] [place] [address] May, [facility] [place] [facility] [address] [id number] [place] [address] May, [facility] [place] [facility] [address] [id number] [place] [address] 18 May, 2014 [facility] [place] [facility] [address] [id number] [place] [address] 15 May, 2014 [facility] [place] [facility] [address] [id number] [place] [address] 15 May, 2014 [facility] [place] [facility] [address] [id number] [place] [address] 17 Apr, 2014 [facility] [place] [facility] [address] [id number] [place] [address] Apr, [facility] [place] [facility] [address] [id number] [place] [address] Apr, [facility] [place] [facility] [address] [id number] [place] [address] Apr, [facility] [place] [facility] [address] [id number] [place] [address] Mar, [facility] [place] [facility] [address] [id number] [place] [address] Mar, [facility] [place] [facility] [address] [id number] [place] [address] Mar, [facility] [place] [facility] [address] [facility] [id number] [place] [address] Mar, [facility] [place] [facility] [address] [facility] [id number] [place] [address] Feb, [facility] [place] [facility] [address] [id number] [place] [address] 23 Feb, 2014 [facility] [place] [facility] [address] [facility] [id number] [place] [address] Feb, [facility] [place] [facility] [address] [id number] [place] [address] Feb, [facility] [place] [facility] [address] [id number] [place] [address] 16 Feb, 2014 [facility] [place] [facility] [address] [id number] [place] [address] Feb, [facility] [place] [facility] [address] [id number] [place] [address] Jan, [facility] [place] [facility] [address] [facility] [id number] [place] [address] Jan, [facility] [place] [facility] [address] [id number] [place] [address] Jan, [facility] [place] [facility] [address] [id number] [place] [address] Jan, [facility] [place] [facility] [address] [id number] [place] [address] Jan, [facility] [place] [facility] [address] [facility] [id number] [place] [address] Jan, [facility] [place] [facility] [address] [id number] [place] [address] Dec, [facility] [place] [facility] [address] [id number] [place] [address] Dec, [facility] [place] [facility] [address] [id number] [place] [address] Nov, [facility] [place] [facility] [address] [facility] [id number] [place] [address] Nov, [facility] [place] [facility] [address] [id number] [place] [address] Nov, [facility] [place] [facility] [address] [id number] [place] [address] Nov, [facility] [place] [facility] [address] [id number] [place] [address] Nov, [facility] [place] [facility] [address] [facility] [id number] [place] [address] Nov, [facility] [place] [facility] [address] [id number] [place] [address] Nov, [facility] [place] [facility] [address] [id number] [place] [address] October, [facility] [place] [facility] [address] [id number] [place] [address] October, [facility] [place] [facility] [address] [id number] [place] [address] Sep, [facility] [place] [facility] [address] [id number] [place] [address] Sep, [facility] [place] [facility] [address] [id number] [place] [address] Sep, [facility] [place] [facility] [address] [id number] [place] [address] Sep, [facility] [place] [facility] [address] [id number] [place] [address] Sep, [facility] [place] [facility] [address] [id number] [place] [address] Sep, [facility] [place] [facility] [address] [id number] [place] [address] Sep, [facility] [place] [facility] [address] [id number] [place] [address] Sep, [facility] [place] [facility] [address] [id number] [place] [address] 16 Sep, 2013 [facility] [place] [facility] [address] [facility] [id number] [facility] [address] 14 Sep, 2013 [facility] [place] [facility] [address] [facility] [id number] [place] [address] 14 Sep, 2013 [facility] [place] [facility] [address] [id number] [facility] [place] [address] Sep, [facility] [place] [facility] [address] [facility] [id number] [place] [address] Sep, [facility] [place] [facility] [address] [facility] [id number] [facility] [place] [address] 08 Sep, 2013 [facility] [place] [facility] [address] [facility] [id number] [place] [address] Sep, [facility] [place] [facility] [address] [id number] [facility] [place] [address] 24 Aug, 2013 [facility] [place] [facility] [address] [id number] [facility] [place] [address] 24 Aug, 2013 [facility] [place] [facility] [address] [id number] [facility] [place] [address] 24 Aug, 2013 [facility] [place] [facility] [address] [id number] [facility] [address] 24 Aug, 2013 [facility] [place] [facility] [address] [id number] [place] [address] Aug, [facility] [place] [facility] [address] [id number] [place] [address] Aug, [facility] [place] [facility] [address] [id number] [facility] [place] [address] Aug, [facility] [place] [facility] [address] [id number] [place] [address] Aug, [facility] [place] [facility] [address] [id number] [place] [address] Aug, [facility] [place] [facility] [address] [id number] [facility] [place] [address] Aug, [facility] [place] [facility] [address] [id number] [place] [address] Jun, [facility] [place] [facility] [address] [facility] [id number] [place] [address] Jun, [facility] [place] [facility] [address] [id number] [place] [address] Jun, [facility] [place] [facility] [address] [id number] [place] [address] Jun, [facility] [place] [facility] [address] [id number] [place] [address] Jun, [facility] [place] [facility] [address] [facility] [id number] [place] [address] Jun, [facility] [place] [facility] [address] [id number] [place] [address] Jun, [facility] [place] [facility] [address] [id number] [place] [address] Jun, [facility] [place] [facility] [address] [id number] [place] [address] Jun, [facility] [place] [facility] [address] [id number] [place] [address] Jun, [facility] [place] [facility] [address] [id number] [place] [address] Jun, [facility] [place] [facility] [address] [id number] [place] [address] Jun, [facility] [place] [facility] [address] [id number] [place] [address] Apr, [facility] [place] [facility] [address] [id number] [place] [address] Apr, [facility] [place] [facility] [address] [id number] [place] [address] Jan, [facility] [place] [facility] [address] [id number] [place] [address] Jan, [facility] [place] [facility] [address] [id number] [place] [address] Jan, [facility] [address] [id number] [place] [address] Jan, [facility] [address] [id number] [place] [address] Jan, [facility] [address] [id number] [place] [address] Jan, [facility] [address] [id number] [place] [address] Jan, [facility] [address] [place] [id number] Jan, [facility] [address] [id number] [place] [address] Dec, [facility] [address] [id number] [place] [address] Dec, [facility] [id number] [place] [address] Dec, [facility] [id number] [place] [address] Dec, [facility] [id number] [place] [address] Dec, [facility] [id number] [place] [address] Dec, [facility] [address] [id number] [place] [address] Dec, [facility] [address] [id number] [place] [address] Nov, [facility] [address] [id number] [place] [address] Nov, IMMUNIZATIONS No Known Immunizations SOCIAL HISTORY Never Assessed REASON FOR VISIT PLAN OF CARE VITAL SIGNS MEDICATIONS Unknown Medications RESULTS No Results PROCEDURES No Known procedures INSTRUCTIONS MEDICATIONS ADMINISTERED No Known Medications
--- OUTSIDE RECORDS SUMMARY | 2019-08-13 05:16 | XMS REPORT | Clinical Summary ---
Author Author [facility] Organization [facility] Address Unknown Phone Unavailable Care Team Providers Care Typing Section Chief Name Role Phone Unverified, Unverified PCP Unavailable Vincenzo White MD Unavailable Larry Riggs MD Unavailable Source Comments Some departments are not documenting in the electronic medical record. If you d o not see the information that you expected, contact Release of Information in [facility] Information Management department at [phone] for further assistan ce in locating additional records.[facility] Allergies Not on File Medications Not on [...]
--- OUTSIDE RECORDS SUMMARY | 2019-08-13 05:16 | XMS REPORT ---
Author Author Ayden Payne Doctor Organization [facility] Address Unknown Phone Unavailable Care Team Providers Care Confidential Investigator Name Role Phone Migration, Doctor Unavailable Unavailable PROBLEMS Type Condition ICD9-CM Code MOL98-RE Code Onset Dates Condition S tatus SNOMED Code Problem Personal history of fall V15.88 Activ e 946393132 Problem Routine general medical examination at [facility] y V70.0 Active 534128278 Problem Personal history of venous thrombosis and embolism V12.51 Active 208610297 Problem Status of other artificial opening of urinary tract V44.6 Active Problem Suicide and self-inflicted p oisoning by unspecified drug or medicinal substance E950.5 Active Problem Other dyspnea and respiratory abnormalities 786.09 Active 419418241 Problem Dysuria 788.1 Active 04189557 Problem Congestive heart failure, unspecified 428.0 Active 66555629 Problem Other screening breast examination V76.19 Active 11369714 Problem Unspecified hypotension 458.9 Active 41979969 Problem Other specified disorders of bladder 596.89 Active 74557169 Problem Encounter for long-term (current) use of other medications V58.69 Active 276797628 Problem Counseling on substance use and abuse V65.42 Active 854375257 Problem Unspecified myalgia and myositis 729.1 Active 881854011 Problem Pain in soft tissues of limb 729.5 A ctive 38553344 Problem Urinary tract infection, site not specified 599.0 Active 45533989 Problem Pain in joint, lower leg 719.46 Activ e 965085550 Problem Chronic airway obstruction, not elsewhere classified 496 Active 24921331 Problem Neurogenic bladder, NOS 596.54 Active 806879470 Problem Acute sinusitis, unspecified 461.9 A ctive 79183001 Problem Personal history of pulmonary embolism V12.55 Active 017977474 Problem Acute bronchitis 466.0 Active 105 95777 Problem Unspecified hearing loss 389.9 Activ e 11301514 Problem Unspecified otalgia 388.70 Active 61032424 Problem Unspecified hereditary and idiopathic peripheral neuropath y 356.9 Active 665211554 Problem Other and unspecified hyperlipidemia 272.4 Active 28700910 Problem Altered mental status 780.97 Active 150728781 Problem Diabetes mellitus without me ntion of complication, type II or unspecified type, not stated as uncontrolled 250.00 Active 960068317 Problem Shortness of breath 786.05 Active 529999889 Problem Other malaise and fatigue 780.79 Acti ve 654232676 Problem Other chronic pain 338.29 Active 8 5047424 Problem Nondependent tobacco use disorder 305.1 Active 283338763 Problem Amphetamine and other psychostimulant de pendence, 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 Active Problem Obesity, unspecified 278.00 Active 407877330 ALLERGIES No Information ENCOUNTERS Encounter Location Date Diagnosis [facility] [address] [address] Sep, [facility] [address] [address] Sep, [facility] [address] [address] Aug, [facility] [address] [address] Aug, [facility] [address] [address] Aug, [facility] [address] [address] Aug, [facility] [address] [address] Aug, [facility] [address] [address] Aug, [facility] [address] [address] Jul, [facility] [address] [address] Jul, [facility] [address] [address] Jul, [facility] [place] [facility] [address] [id number] [place] [address] Jul, [facility] [place] [facility] [address] [id number] [place] [address] Jul, [facility] [place] [facility] [address] [id number] [place] [address] Jul, [facility] [place] [facility] [address] [id number] [place] [address] Jul, [facility] [place] [facility] [address] [id number] [place] [address] Jul, [facility] [place] [facility] [address] [id number] [place] [address] Jul, [facility] [place] [facility] [address] [id number] [place] [address] Jun, [facility] [place] [facility] [id number] [place] [address] Jun, [facility] [place] [facility] [address] [id number] [place] [address] Jun, [facility] [place] [facility] [address] [id number] [place] [address] Jun, [facility] [place] [facility] [address] [id number] [place] [address] Jun, [facility] [place] [facility] [address] [id number] [place] [address] Jun, [facility] [place] [facility] [address] [id number] [place] [address] Jun, [facility] [place] [facility] [address] [id number] [place] [address] Jun, [facility] [place] [facility] [address] [id number] [place] [address] Jun, [facility] [place] [facility] [address] [id number] [place] [address] Jun, [facility] [place] [facility] [address] [id number] [place] [address] May, [facility] [place] [facility] [address] [id number] [place] [address] May, [facility] [place] [facility] [address] [id number] [place] [address] May, [facility] [place] [facility] [address] [id number] [place] [address] May, [facility] [place] [facility] [address] [id number] [place] [address] May, [facility] [place] [facility] [address] [id number] [place] [address] May, [facility] [place] [facility] [address] [id number] [place] [address] May, [facility] [place] [facility] [address] [id number] [place] [address] May, [facility] [place] [facility] [address] [id number] [place] [address] 18 May, 2014 [facility] [place] [facility] [address] [id number] [place] [address] 15 May, 2014 [facility] [place] [facility] [address] [id number] [place] [address] 15 May, 2014 [facility] [place] [facility] [address] [id number] [place] [address] 17 Apr, 2014 [facility] [place] [facility] [address] [id number] [place] [address] Apr, [facility] [place] [facility] [address] [id number] [place] [address] Apr, [facility] [place] [facility] [address] [id number] [place] [address] Apr, [facility] [place] [facility] [address] [id number] [place] [address] Mar, [facility] [place] [facility] [address] [id number] [place] [address] Mar, [facility] [place] [facility] [address] [id number] [place] [address] Mar, [facility] [place] [facility] [address] [facility] [id number] [place] [address] Mar, [facility] [place] [facility] [address] [facility] [id number] [place] [address] Feb, [facility] [place] [facility] [address] [id number] [place] [address] 23 Feb, 2014 [facility] [place] [facility] [address] [facility] [id number] [place] [address] Feb, [facility] [place] [facility] [address] [id number] [place] [address] Feb, [facility] [place] [facility] [address] [id number] [place] [address] 16 Feb, 2014 [facility] [place] [facility] [address] [id number] [place] [address] Feb, [facility] [place] [facility] [address] [id number] [place] [address] Jan, [facility] [place] [facility] [address] [facility] [id number] [place] [address] Jan, [facility] [place] [facility] [address] [id number] [place] [address] Jan, [facility] [place] [facility] [address] [id number] [place] [address] Jan, [facility] [place] [facility] [address] [id number] [place] [address] Jan, [facility] [place] [facility] [address] [facility] [id number] [place] [address] Jan, [facility] [place] [facility] [address] [id number] [place] [address] Dec, [facility] [place] [facility] [address] [id number] [place] [address] Dec, [facility] [place] [facility] [address] [id number] [place] [address] Nov, [facility] [place] [facility] [address] [facility] [id number] [place] [address] Nov, [facility] [place] [facility] [address] [id number] [place] [address] Nov, [facility] [place] [facility] [address] [id number] [place] [address] Nov, [facility] [place] [facility] [address] [id number] [place] [address] Nov, [facility] [place] [facility] [address] [facility] [id number] [place] [address] Nov, [facility] [place] [facility] [address] [id number] [place] [address] Nov, [facility] [place] [facility] [address] [id number] [place] [address] October, [facility] [place] [facility] [address] [id number] [place] [address] October, [facility] [place] [facility] [address] [id number] [place] [address] Sep, [facility] [place] [facility] [address] [id number] [place] [address] Sep, [facility] [place] [facility] [address] [id number] [place] [address] Sep, [facility] [place] [facility] [address] [id number] [place] [address] Sep, [facility] [place] [facility] [address] [id number] [place] [address] Sep, [facility] [place] [facility] [address] [id number] [place] [address] Sep, [facility] [place] [facility] [address] [id number] [place] [address] Sep, [facility] [place] [facility] [address] [id number] [place] [address] Sep, [facility] [place] [facility] [address] [id number] [place] [address] 16 Sep, 2013 [facility] [place] [facility] [address] [facility] [id number] [facility] [address] 14 Sep, 2013 [facility] [place] [facility] [address] [facility] [id number] [place] [address] 14 Sep, 2013 [facility] [place] [facility] [address] [id number] [facility] [address] Sep, [facility] [place] [facility] [address] [facility] [id number] [place] [address] Sep, [facility] [place] [facility] [address] [facility] [id number] [facility] [address] 08 Sep, 2013 [facility] [place] [facility] [address] [facility] [id number] [place] [address] Sep, [facility] [place] [facility] [address] [id number] [facility] [address] 24 Aug, 2013 [facility] [place] [facility] [address] [id number] [facility] [address] 24 Aug, 2013 [facility] [place] [facility] [address] [id number] [facility] [address] 24 Aug, 2013 [facility] [place] [facility] [address] [id number] [facility] [address] 24 Aug, 2013 [facility] [place] [facility] [address] [id number] [place] [address] Aug, [facility] [place] [facility] [address] [id number] [place] [address] Aug, [facility] [place] [facility] [address] [id number] [facility] [address] Aug, [facility] [place] [facility] [address] [id number] [place] [address] Aug, [facility] [place] [facility] [address] [id number] [place] [address] Aug, [facility] [place] [facility] [address] [id number] [facility] [address] Aug, [facility] [place] [facility] [address] [id number] [place] [address] Jun, [facility] [place] [facility] [address] [facility] [id number] [place] [address] Jun, [facility] [place] [facility] [address] [id number] [place] [address] Jun, [facility] [place] [facility] [address] [id number] [place] [address] Jun, [facility] [place] [facility] [address] [id number] [place] [address] Jun, [facility] [place] [facility] [address] [facility] [id number] [place] [address] Jun, [facility] [place] [facility] [address] [id number] [place] [address] Jun, [facility] [place] [facility] [address] [id number] [place] [address] Jun, [facility] [place] [facility] [address] [id number] [place] [address] Jun, [facility] [place] [facility] [address] [id number] [place] [address] Jun, [facility] [place] [facility] [address] [id number] [place] [address] Jun, [facility] [place] [facility] [address] [id number] [place] [address] Jun, [facility] [place] [facility] [address] [id number] [place] [address] Apr, [facility] [place] [facility] [address] [id number] [place] [address] Apr, [facility] [place] [facility] [address] [id number] [place] [address] Jan, [facility] [place] [facility] [address] [id number] [place] [address] Jan, [facility] [place] [facility] [address] [id number] [place] [address] Jan, [facility] [address] [id number] [place] [address] Jan, [facility] [address] [id number] [place] [address] Jan, [facility] [address] [id number] [place] [address] Jan, [facility] [address] [id number] [place] [address] Jan, [facility] [address] [place] [id number] Jan, [facility] [address] [id number] [place] [address] Dec, [facility] [address] [id number] [place] [address] Dec, [facility] [id number] [place] [address] Dec, [facility] [id number] [place] [address] Dec, [facility] [id number] [place] [address] Dec, [facility] [id number] [place] [address] Dec, [facility] [address] [id number] [place] [address] Dec, [facility] [address] [id number] [place] [address] Nov, [facility] [address] [id number] [place] [address] Nov, IMMUNIZATIONS No Known Immunizations SOCIAL HISTORY Never Assessed REASON FOR VISIT PLAN OF CARE VITAL SIGNS MEDICATIONS Unknown Medications RESULTS No Results PROCEDURES No Known procedures INSTRUCTIONS MEDICATIONS ADMINISTERED No Known Medications
--- OUTSIDE RECORDS SUMMARY | 2019-08-13 05:16 | XMS REPORT ---
Author Author Ayden Payne Doctor Organization [facility] Address Unknown Phone Unavailable Care Team Providers Care Polymer Specialist Name Role Phone Migration, Doctor Unavailable Unavailable PROBLEMS Type Condition ICD9-CM Code CYP98-NT Code Onset Dates Condition S tatus SNOMED Code Problem Personal history of fall V15.88 Activ e 475820243 Problem Routine general medical examination at [facility] y V70.0 Active 718951455 Problem Personal history of venous thrombosis and embolism V12.51 Active 151931176 Problem Status of other artificial opening of urinary tract V44.6 Active Problem Suicide and self-inflicted p oisoning by unspecified drug or medicinal substance E950.5 Active Problem Other dyspnea and respiratory abnormalities 786.09 Active 681457934 Problem Dysuria 788.1 Active 33073104 Problem Congestive heart failure, unspecified 428.0 Active 80306936 Problem Other screening breast examination V76.19 Active 53095540 Problem Unspecified hypotension 458.9 Active 55884029 Problem Other specified disorders of bladder 596.89 Active 43009543 Problem Encounter for long-term (current) use of other medications V58.69 Active 780160687 Problem Counseling on substance use and abuse V65.42 Active 205831555 Problem Unspecified myalgia and myositis 729.1 Active 569123450 Problem Pain in soft tissues of limb 729.5 A ctive 85277250 Problem Urinary tract infection, site not specified 599.0 Active 10213953 Problem Pain in joint, lower leg 719.46 Activ e 833228516 Problem Chronic airway obstruction, not elsewhere classified 496 Active 14939551 Problem Neurogenic bladder, NOS 596.54 Active 601795847 Problem Acute sinusitis, unspecified 461.9 A ctive 59087773 Problem Personal history of pulmonary embolism V12.55 Active 750139941 Problem Acute bronchitis 466.0 Active 105 81376 Problem Unspecified hearing loss 389.9 Activ e 38274675 Problem Unspecified otalgia 388.70 Active 07668635 Problem Unspecified hereditary and idiopathic peripheral neuropath y 356.9 Active 613567602 Problem Other and unspecified hyperlipidemia 272.4 Active 29723359 Problem Altered mental status 780.97 Active 006857922 Problem Diabetes mellitus without me ntion of complication, type II or unspecified type, not stated as uncontrolled 250.00 Active 832576742 Problem Shortness of breath 786.05 Active 869070521 Problem Other malaise and fatigue 780.79 Acti ve 431733778 Problem Other chronic pain 338.29 Active 8 3303953 Problem Nondependent tobacco use disorder 305.1 Active 311485707 Problem Amphetamine and other psychostimulant de pendence, 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 Active Problem Obesity, unspecified 278.00 Active 239278317 ALLERGIES No Information ENCOUNTERS Encounter Location Date Diagnosis [facility] [address] [address] Sep, [facility] [address] [address] Sep, [facility] [address] [address] Aug, [facility] [address] [address] Aug, [facility] [address] [address] Aug, [facility] [address] [address] Aug, [facility] [address] [address] Aug, [facility] [address] [address] Aug, [facility] [address] [address] Jul, [facility] [address] [address] Jul, [facility] [address] [address] Jul, [facility] [place] [facility] [address] [id number] [place] [address] Jul, [facility] [place] [facility] [address] [id number] [place] [address] Jul, [facility] [place] [facility] [address] [id number] [place] [address] Jul, [facility] [place] [facility] [address] [id number] [place] [address] Jul, [facility] [place] [facility] [address] [id number] [place] [address] Jul, [facility] [place] [facility] [address] [id number] [place] [address] Jul, [facility] [place] [facility] [address] [id number] [place] [address] Jun, [facility] [place] [facility] [id number] [place] [address] Jun, [facility] [place] [facility] [address] [id number] [place] [address] Jun, [facility] [place] [facility] [address] [id number] [place] [address] Jun, [facility] [place] [facility] [address] [id number] [place] [address] Jun, [facility] [place] [facility] [address] [id number] [place] [address] Jun, [facility] [place] [facility] [address] [id number] [place] [address] Jun, [facility] [place] [facility] [address] [id number] [place] [address] Jun, [facility] [place] [facility] [address] [id number] [place] [address] Jun, [facility] [place] [facility] [address] [id number] [place] [address] Jun, [facility] [place] [facility] [address] [id number] [place] [address] May, [facility] [place] [facility] [address] [id number] [place] [address] May, [facility] [place] [facility] [address] [id number] [place] [address] May, [facility] [place] [facility] [address] [id number] [place] [address] May, [facility] [place] [facility] [address] [id number] [place] [address] May, [facility] [place] [facility] [address] [id number] [place] [address] May, [facility] [place] [facility] [address] [id number] [place] [address] May, [facility] [place] [facility] [address] [id number] [place] [address] May, [facility] [place] [facility] [address] [id number] [place] [address] 18 May, 2014 [facility] [place] [facility] [address] [id number] [place] [address] 15 May, 2014 [facility] [place] [facility] [address] [id number] [place] [address] 15 May, 2014 [facility] [place] [facility] [address] [id number] [place] [address] 17 Apr, 2014 [facility] [place] [facility] [address] [id number] [place] [address] Apr, [facility] [place] [facility] [address] [id number] [place] [address] Apr, [facility] [place] [facility] [address] [id number] [place] [address] Apr, [facility] [place] [facility] [address] [id number] [place] [address] Mar, [facility] [place] [facility] [address] [id number] [place] [address] Mar, [facility] [place] [facility] [address] [id number] [place] [address] Mar, [facility] [place] [facility] [address] [facility] [id number] [place] [address] Mar, [facility] [place] [facility] [address] [facility] [id number] [place] [address] Feb, [facility] [place] [facility] [address] [id number] [place] [address] 23 Feb, 2014 [facility] [place] [facility] [address] [facility] [id number] [place] [address] Feb, [facility] [place] [facility] [address] [id number] [place] [address] Feb, [facility] [place] [facility] [address] [id number] [place] [address] 16 Feb, 2014 [facility] [place] [facility] [address] [id number] [place] [address] Feb, [facility] [place] [facility] [address] [id number] [place] [address] Jan, [facility] [place] [facility] [address] [facility] [id number] [place] [address] Jan, [facility] [place] [facility] [address] [id number] [place] [address] Jan, [facility] [place] [facility] [address] [id number] [place] [address] Jan, [facility] [place] [facility] [address] [id number] [place] [address] Jan, [facility] [place] [facility] [address] [facility] [id number] [place] [address] Jan, [facility] [place] [facility] [address] [id number] [place] [address] Dec, [facility] [place] [facility] [address] [id number] [place] [address] Dec, [facility] [place] [facility] [address] [id number] [place] [address] Nov, [facility] [place] [facility] [address] [facility] [id number] [place] [address] Nov, [facility] [place] [facility] [address] [id number] [place] [address] Nov, [facility] [place] [facility] [address] [id number] [place] [address] Nov, [facility] [place] [facility] [address] [id number] [place] [address] Nov, [facility] [place] [facility] [address] [facility] [id number] [place] [address] Nov, [facility] [place] [facility] [address] [id number] [place] [address] Nov, [facility] [place] [facility] [address] [id number] [place] [address] October, [facility] [place] [facility] [address] [id number] [place] [address] October, [facility] [place] [facility] [address] [id number] [place] [address] Sep, [facility] [place] [facility] [address] [id number] [place] [address] Sep, [facility] [place] [facility] [address] [id number] [place] [address] Sep, [facility] [place] [facility] [address] [id number] [place] [address] Sep, [facility] [place] [facility] [address] [id number] [place] [address] Sep, [facility] [place] [facility] [address] [id number] [place] [address] Sep, [facility] [place] [facility] [address] [id number] [place] [address] Sep, [facility] [place] [facility] [address] [id number] [place] [address] Sep, [facility] [place] [facility] [address] [id number] [place] [address] 16 Sep, 2013 [facility] [place] [facility] [address] [facility] [id number] [place] [address] 14 Sep, 2013 [facility] [place] [facility] [address] [facility] [id number] [place] [address] 14 Sep, 2013 [facility] [place] [facility] [address] [id number] [place] [address] Sep, [facility] [place] [facility] [address] [facility] [id number] [place] [address] Sep, [facility] [place] [facility] [address] [facility] [id number] [place] [address] 08 Sep, 2013 [facility] [place] [facility] [address] [facility] [id number] [place] [address] Sep, [facility] [place] [facility] [address] [id number] [place] [address] 24 Aug, 2013 [facility] [place] [facility] [address] [id number] [place] [address] 24 Aug, 2013 [facility] [place] [facility] [address] [id number] [place] [address] 24 Aug, 2013 [facility] [place] [facility] [address] [id number] [place] [address] 24 Aug, 2013 [facility] [place] [facility] [address] [id number] [place] [address] Aug, [facility] [place] [facility] [address] [id number] [place] [address] Aug, [facility] [place] [facility] [address] [id number] [place] [address] Aug, [facility] [place] [facility] [address] [id number] [place] [address] Aug, [facility] [place] [facility] [address] [id number] [place] [address] Aug, [facility] [place] [facility] [address] [id number] [place] [address] Aug, [facility] [place] [facility] [address] [id number] [place] [address] Jun, [facility] [place] [facility] [address] [facility] [id number] [place] [address] Jun, [facility] [place] [facility] [address] [id number] [place] [address] Jun, [facility] [place] [facility] [address] [id number] [place] [address] Jun, [facility] [place] [facility] [address] [id number] [place] [address] Jun, [facility] [place] [facility] [address] [facility] [id number] [place] [address] Jun, [facility] [place] [facility] [address] [id number] [place] [address] Jun, [facility] [place] [facility] [address] [id number] [place] [address] Jun, [facility] [place] [facility] [address] [id number] [place] [address] Jun, [facility] [place] [facility] [address] [id number] [place] [address] Jun, [facility] [place] [facility] [address] [id number] [place] [address] Jun, [facility] [place] [facility] [address] [id number] [place] [address] Jun, [facility] [place] [facility] [address] [id number] [place] [address] Apr, [facility] [place] [facility] [address] [id number] [place] [address] Apr, [facility] [place] [facility] [address] [id number] [place] [address] Jan, [facility] [place] [facility] [address] [id number] [place] [address] Jan, [facility] [place] [facility] [address] [id number] [place] [address] Jan, [facility] [address] [id number] [place] [address] Jan, [facility] [address] [id number] [place] [address] Jan, [facility] [address] [id number] [place] [address] Jan, [facility] [address] [id number] [place] [address] Jan, [facility] [address] [place] [id number] Jan, [facility] [address] [id number] [place] [address] Dec, [facility] [address] [id number] [place] [address] Dec, [facility] [id number] [place] [address] Dec, [facility] [id number] [place] [address] Dec, [facility] [id number] [place] [address] Dec, [facility] [id number] [place] [address] Dec, [facility] [address] [id number] [place] [address] Dec, [facility] [address] [id number] [place] [address] Nov, [facility] [address] [id number] [place] [address] Nov, IMMUNIZATIONS No Known Immunizations SOCIAL HISTORY Never Assessed REASON FOR VISIT PLAN OF CARE VITAL SIGNS MEDICATIONS Unknown Medications RESULTS No Results PROCEDURES No Known procedures INSTRUCTIONS MEDICATIONS ADMINISTERED No Known Medications
--- OUTSIDE RECORDS SUMMARY | 2019-08-13 05:16 | XMS REPORT ---
Author Author [employer] Organization [facility] Address [address] [address] Care Team Providers Care Facility Maintenance Worker Name Role Phone Hilario Machado Unavailable [facility] Unavailable Migration, Doctor Unavailable Unavailable Migration, Doctor Unavailable Unavailable Migration, Doctor Unavailable Unavailable Migration, Doctor Unavailable Unavailable Migration, Doctor Unavailable Unavailable Migration, Doctor Unavailable Unavailable Migration, Doctor Unavailable Unavailable Migration, Doctor Unavailable Unavailable Migration, Doctor Unavailable Unavailable Migration, Doctor Unavailable Unavailable Migration, Doctor Unavailable Unavailable Migration, Doctor Unavailable Unavailable Migration, Doctor Unavailable Unavailable Migration, Doctor Unavailable Unavailable Migration, Doctor Unavailable Unavailable Migration, Doctor Unavailable Unavailable Migration, Doctor Unavailable Unavailable Migration, Doctor Unavailable Unavailable Migration, Doctor Unavailable Unavailable Migration, Doctor Unavailable Unavailable Migration, Doctor Unavailable Unavailable Migration, Doctor Unavailable Unavailable Migration, Doctor Unavailable Unavailable Migration, Doctor Unavailable Unavailable Migration, Doctor Unavailable Unavailable Migration, Doctor Unavailable Unavailable Migration, Doctor Unavailable Unavailable Migration, Doctor Unavailable Unavailable TASH ALARCON MD Unavailable Unavailable GUALBERTO ZEPEDA Unavailable Unavailable Migration, Doctor Unavailable Unavailable TOSHA RICHARDSON, KAYLEE Benites Unavailable Unavailable FIFI WALKER MD Unavailable Unavailable Migration, Doctor Unavailable Unavailable Migration, Doctor Unavailable Unavailable Migration, Doctor Unavailable Unavailable Migration, Doctor Unavailable Unavailable Migration, Doctor Unavailable Unavailable Migration, Doctor Unavailable Unavailable Migration, Doctor Unavailable Unavailable Migration, Doctor Unavailable Unavailable Migration, Doctor Unavailable Unavailable Migration, Doctor Unavailable Unavailable Migration, Doctor Unavailable Unavailable Allergies Normalized Allergy Reported Date of Reaction(s) Care Provider Facility Allergy Type classification allergen Allergy Onset Drug Allergy Serotonin-1b SUMAtriptan 07-18-2019 - no alonzo NG [facility] Via (20 sources.) and [facility] - Receptor [place] [facility] ([id number]) Medications The data below is from unstructured sources Unknown Medications Unknown Medications Unknown Medications Unknown Medications Unknown Medications Unknown Medications Unknown Medications Unknown Medications Unknown Medications Unknown Medications Unknown Medications Unknown Medications No Known Medications No Known Medications No Known Medications No Known Medications No Known Medications No Known Medications No Known Medications No Known Medications No Known Medications No Known Medications No Known Medications No Known Medications Unknown Medications No Known Medications Problems Problem Normalized Date of Normalized Normalized Provider Fac ility Classification Problem(s) Problem Problem Problem Sta tus Onset/Resoluti Duration on Residual Acquired 07-15-2019 - 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 TASH ENYART , [facility] Via codes; absence of [facility] [place] unclassified both cervix Hospital - (5 sources.) and uterus [place] () Residual Acquired 07-15-2019 - 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 TASH ENYART , [facility] Via codes; absence of [facility] [place] unclasslisa other Hospital - (5 sources.) specified [place] parts of ([address]) digestive tract Allergic Allergy status 07-15-2019 - 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 TASH JAIME RT , [facility] Via reactions (21 to other [facility] [place] sources.) antibiotic Hospital - agents status [place] Translations: () [ ALLERGY STATUS TO OTH DRUG/MEDS/BIOL SUB] Attention-defi Attention-defi 07-15-2019 - Chronic Active MAR C ENYART , [facility] Via cit conduct cit [facility] [place] and disruptive hyperactivity [facility] - behavior disorder, [place] disorders (5 unspecified ([address]406) sources.) type Other upper Chronic 07-24-2019 - Chronic Active FIFI DENISE , [facility] Via respiratory sinusitis, [facility] [place] infections (8 unspecified Hospital - sources.) [place] () Residual Contact with 07-27-2019 - 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 TASH ENYART , [facility] Via codes; and [facility] [place] unclassified (suspected) Hospital - (1 source.) exposure to [place] environmental ([id number]) tobacco smoke (acute) (chronic) Other Diarrhea, 07-15-2019 - 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 TASH ENYART , [facility] Via gastrointestin unspecified [facility] [place] al disorders Hospital - (5 sources.) [place] ([id number]) Other Fibromyalgia 07-15-2019 - 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 TASH ENYART , [facility] Via connective [facility] [place] tissue disease Hospital - (5 sources.) [place] ([id number]) Esophageal Gastro-esophag 07-15-2019 - Chronic Active TASH EN YART , [facility] Via disorders (14 eal reflux [facility] [place] sources.) disease Hospital - without [place] esophagitis ([id number]) Headache; Headache 07-24-2019 - 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 FIFI DENISE , [facility] Via including [facility] [place] migraine (8 Hospital - sources.) [place] ([id number]) Thyroid Hypothyroidism 07-15-2019 - Chronic Active TASH JAIME RT , [facility] Via disorders (5 , unspecified [facility] [place] sources.) Hospital [facility] ([id number]) Other Irritable 07-15-2019 - Chronic Active TASH ENYART , [facility] Via gastrointestin bowel syndrome [facility] [place] al disorders without Hospital - (5 sources.) diarrhea [place] ([id number]) Other longterm 07-24-2019 - 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 FIFI DENISE , [facility] Via aftercare (9 (current) use [facility] [place] sources.) of Hospital - anticoagulants [place] ([id number]) 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 TASH ENYART , [facility] Via aftercare (14 (current) use [facility] [place] sources.) of insulin [facility] ([id number]) Spondylosis; Low back pain 07-15-2019 - 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 TASH E NYART , [facility] Via intervertebral [facility] [place] disc Hospital - disorders; [place] other back () problems (10 sources.) Nausea and Nausea with 07-15-2019 - 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 TASH ENYAR T , [facility] Via vomiting (5 vomiting, [facility] [place] sources.) unspecified Hospital [facility] ([id number]) Nonspecific Other chest 07-27-2019 - 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 TASH JAIME RT , [facility] Via chest pain (1 pain [facility] [place] source.) [facility] ([id number]) Other nervous Other chronic 07-15-2019 - Chronic Active TASH ENYART , [facility] Via system pain [facility] [place] disorders (5 Hospital - sources.) [place] ([id number]) Other Pain in joint, 07-15-2019 - 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 GUALBERTO NE WTON [facility] Via non-traumatic pelvic region , [facility] [place] joint and thigh Hospital - disorders (5 [place] sources.) ([id number]) Cancer of Personal 07-15-2019 - 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 TSAH ENYART , [facility] Via ovary (14 history of [facility] [place] sources.) malignant Hospital - neoplasm of [place] ovary ([id number]) Calculus of Personal 07-15-2019 - 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 TASH ENYART , [facility] Via urinary tract history of [facility] [place] (5 sources.) urinary Hospital - calculi [place] ([id number]) Other lower Shortness of 07-27-2019 - 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 TASH YULIYA ART , [facility] Via respiratory breath [facility] [place] disease (1 Hospital - source.) [place] ([id number]) Diabetes Type 2 07-15-2019 - Chronic Active TASH ALARCON , [facility] Via mellitus with diabetes [facility] [place] complications mellitus with Hospital - (14 sources.) diabetic [place] neuropathy, ([id number]) unspecified Procedures The data below is from unstructured sources No known procedures Immunizations The data below is from unstructured sources Date Immunization Status No known immunizations No Known Immunizations Results The data below is from unstructured sources Test Description (Normal Ranges) Stacie sured Value No known results. No Results Vital Signs No Information Interventions No Information Plan of Treatment No Information Goals No Information Social History The data below is from unstructured sources History Response Recorde d Date/Time Hx Family Cancer Y aunts,cousins 12/13/12 5:50pm Hx Family Breast Cancer Y mother 12/13/12 5:50pm Hx Family Cardiac Disorders Y multip le family members 12/13/12 5:50pm History Response Recorde d Date/Time Alcohol Use Denies Use 0 12/13/12 5:54pm Recreational Drug Use Y METH--- 2 DAYS AGO 12/13/12 5:54pm Recent Foreign Travel N 12/13/12 5:54pm Recent Infectious Disease Exposure N 12/13/12 5:54pm Hospitalization with Isolation Denies 12/14/12 4:25pm Sexually Transmitted Disease N 12/13/12 5:54pm HIV/AIDS N 12/13/12 5:54 pm Functional Status The data below is from unstructured sources No known Functional Status No known Cognitive Status Mental Status No Information Encounters Encounter Normalized Encounter Encounter Diagnosis Care Provi dash Organization Date Type 07-27-2019 Emergency department no information FIFI WALKER MD (no [facility] Via [facility] - patient visit phone) [facility] 07-27-2019 (no phone) 07-21-2019 Emergency department no information TASH Arias (no [facility] Via [place] - patient visit phone) [facility] 07-21-2019 (no phone) 07-18-2019 Emergency department no information TASH Arias (no [facility] Via [place] - patient visit phone) FIFI WALKER [facility] 07-18-2019 (no phone) FIFI Chapman (no phone) DENISE BYRNES (no phone) FIFI WALKER MD (no phone) FIFI WALKER MD (no phone) 07-15-2019 Emergency department no information KAYLEE Delmis GIVENS (no [facility] Via [facility] - patient visit phone) [facility] 07-15-2019 (no phone) 05-30-2019 Emergency department no information TASH Arias (no [facility] Via [facility] - patient visit phone) [facility] 05-30-2019 (no phone) 07-21-2019 Patient encounter no information TASH ALARCON MD ( no [facility] Via [facility] procedure phone) [facility] (no phone) 07-18-2019 Patient encounter no information FIFI WALKER MD (no [facility] Via [facility] procedure phone) [facility] (no phone) 05-30-2019 Patient encounter no information no name (no phone) no organization name procedure (no phone) 08-06-2014 Patient encounter no information GUALBERTO SAUCEDO (no [facility] Via [facility] procedure phone) [facility] (no phone) 06-05-2014 Patient encounter no information GUALBERTO SAUCEDO (no [facility] Via [facility] procedure phone) [facility] (no phone) Medical Equipment No Information Payers The data below is from unstructured sources Payer Name Policy Number Subscriber Name Relationship Medicaid [place] [id number] Jerald Velazquez 01 Self / Same As Patient Instructions Clinical Instructions No known clinical instructions Recommended Patient Decision Aids No known recommended patient decision aids Advance Directives Directive Description Start Date PERMISSION TO SHARE Directive Response Recor ded Date Advance Directives N 05/16 6:04pm Health Care Power of Pecan Mallow Dipper N 12/13/12 6:04pm Additional Source Comments This clinical document has been generated using [employer] software that has been certified by the Office of the National Coordinator for Health Information Technology (ONC 15.99.04.3023.Diam.[id number]) and the National Committee for Take Off Worker (NCQA, as an eMeasure certified technology). FOR RECORDS PERTAINING TO PATIENTS WHO ARE OR HAVE BEEN ENROLLED IN A CHEMICAL D EPENDENCY/SUBSTANCE ABUSE PROGRAM, SOME INFORMATION MAY BE OMITTED. This clinica l summary was aggregated from multiple sources. Caution should be exercised in using it in the provision of clinical care. This summary normalizes information from multiple sources, and as a consequence, information in this document may ma terially change the coding, format and clinical context of patient data. In shruthi tion, data may be omitted in some cases. CLINICAL DECISIONS SHOULD BE BASED ON T HE PRIMARY CLINICAL RECORDS. [employer] provides no warranty or guara ntee of the accuracy or completeness of information in this document.The followi ng information is based on time limited clinical information UNRECOGNIZED CONTENT PROVIDED BELOW FOR UNRECOGNIZED SECTION REASON FOR VISIT [id number]
--- OUTSIDE RECORDS SUMMARY | 2019-08-13 05:16 | XMS REPORT | Clinical Summary ---
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 Blood Pressure 68 06/26/2011 6:40 AM FARM TECHNICIAN Pulse 36.7 C (98 F) 06/26/2011 6:40 AM FARM TECHNICIAN Temperature 20 06/26/2011 6:40 AM FARM TECHNICIAN Respiratory Rate - - Oxygen Saturation - - Inhaled Oxygen Concentration - - Weight 158.8 cm (5' 2.5") 06/23/2011 12:03 AM FARM TECHNICIAN Height - - Body Mass Index Plan of Treatment Health Maintenance Due Date Last Done Comments Varicella Vaccines (1 of 1973 2 - 2-dose childhood series) DTaP,Tdap,and Td Vaccines 1991 (1 - Tdap) MMR Vaccines-Adult 1991 Cervical Cancer Screening 1993 Influenza Vaccine (#1) 2019 05/04/2011 Pneumo-Vaccine: Peds (0-5 Aged Out 06/04/2006 No l onger eligible based on patient's age to Yrs) & At-Risk Patients complete this topic (6-64 Yrs) Results Not on filefrom Last 3 Months
== END 2019-08-09 23:25 | disposition home or self-care (01) ==
LOC: EDUNIT# 22:15 → ER FS 22:18
DX: G89.29 Other chronic pain (principal); J43.9 Emphysema, unspecified; E11.40 Type 2 diabetes mellitus with diabetic neuropathy, unspecified; I50.9 Heart failure, unspecified; K21.9 Gastro-esophageal reflux disease without esophagitis; E03.9 Hypothyroidism, unspecified; F31.9 Bipolar disorder, unspecified; F20.9 Schizophrenia, unspecified; F90.9 Attention-deficit hyperactivity disorder, unspecified type; Z85.43 Personal history of malignant neoplasm of ovary; Z86.718 Personal history of other venous thrombosis and embolism; Z88.1 Allergy status to other antibiotic agents; Z88.8 Allergy status to other drugs, medicaments and biological substances; Z79.4 Long term (current) use of insulin; Z79.01 Long term (current) use of anticoagulants; Z77.22 Contact with and (suspected) exposure to environmental tobacco smoke (acute) (chronic)
CPT/HCPCS: 87804

== ENCOUNTER 2019-09-12 20:23 | Emergency (ER) | payer MEDICAID, OTHER ==
[~2019-09-12] VITALS: Ht 157 cm; Wt 140.0 kg
--- NOTE | 2019-09-12 20:39 | ED Back Pain ---
General Chief Complaint: Back Problems Stated Complaint: BACK PAIN Nursing Triage Note: Pt complaining of chronic lower back pain. Pt states she usually takes Oxycodone for the pain but ran out a couple of weeks ago. Nursing Sepsis Screen: No Definite Risk Source of Information: Patient History of Present Illness Date Seen by Provider: Sep 12, 2019 Time Seen by Provider: 20:25 Initial Comments 49-year-old female presenting with complaints of exacerbation of chronic low back pain. She states that she has been out of her oxycodone 7.5 mg that she usually takes for her chronic back pain. She recently started seeing Dr. Michele Merida for her chronic health problems. She states fever a prescription for her chronic pain medicine however she is still not received the medications. When she checked with insurance today they told her that he needs to send a prior authorization to the insurance and pharmacy. She plans to call Sunday to help get that arranged. However today she felt like the pain was more that she could tolerate so she came to the emergency department to try and get some help with that. She denies any new numbness or tingling in her extremities. She denies any new injury or fall. She has no loss of bowel or bladder control. She has been taking Tylenol for her pain but states it is not controlling her pain especially today. Allergies and Home Medications Allergies Coded Allergies: doxycycline (Unverified Allergy, Mild, nauseated, 08/01/09) spinach (Unverified Allergy, Mild, 08/01/09) alprazolam (Verified Allergy, Unknown, 07/18/19) diazepam (Verified Allergy, Unknown, 07/18/19) sumatriptan (Verified Allergy, Unknown, 07/18/19) Home Medications Atorvastatin 20 Mg Tablet, 20 MG PO HS, (Reported) Azithromycin 250 Mg Tablet, 250 MG PO UD TAKE 2 TABLETS ON DAY ONE THEN TAKE 1 TABLET DAILY FOR FOUR MORE DAYS Prescribed by: FIFI WALKER on 07/18/19 0851 Cephalexin Monohydrate 500 Mg Capsule, 1 EACH PO QID, (Reported) Ciprofloxacin 500 Mg Tablet, 1 TAB PO BID FOR INFECTION Prescribed by: BRAULIO NASH on 04/24/13 2101 Furosemide 40 Mg Tablet, 1 EACH PO BID, (Reported) PT TAKES 40MG PO BID Gabapentin 600 Mg Tab, 600 MG PO QID, (Reported) Haloperidol 10 Mg Tablet, 10 MG PO TID Prescribed by: FIFI WALKER on 07/18/19 0851 Hum Insulin Nph/Reg Insulin Hm 10 Ml Vial, 15 UNITS SQ TID, (Reported) Insulin Glargine,Hum.rec.anlog 300 Unit/3 Ml Insuln.pen, 10 UNITS SQ HS Prescribed by: NNEKA ROBINS on 12/14/12 1141 Ipratropium [place] 0.5 Mg/2.5 Ml Nebu, 0.5 MG IH Q6H PRN, (Reported) Ipratropium/Albuterol Sulfate 4 Gm Aer.w.adap, 1 PUFF IH QID, (Reported) Loratadine 10 Mg Tablet, 10 MG PO DAILY, (Reported) Lurasidone Hcl 80 Mg Tablet, 80 MG PO HS, (Reported) Lurasidone Hcl 40 Mg Tablet, 40 MG PO DAILY, (Reported) TAKES IN AM DAILY Meclizine Hcl 25 Mg Tablet, 1 EACH PO TID PRN, (Reported) Meloxicam 7.5 Mg Tablet, 7.5 MG PO DAILY, (Reported) Nitrofurantoin/Nitrofuran Mac 100 Mg Capsule, 100 MG PO BID Prescribed by: GUALBERTO DOUGHERTY on 04/14/13 175 Nystatin 1 Each Powder.ea., 0 TOP BID PRN SPRINKLE ON AFFECTED AREA Prescribed by: GUALBERTO DOUGHERTY on 04/14/131754 Olanzapine 10 Mg Tab, 10 MG PO BID PRN for ANXIETY, (Reported) Oxcarbazepine 150 Mg Tablet, 300 MG PO DAILY, (Reported) Oxycodone HCl/Acetaminophen 1 Each Tablet, 1 EACH PO Q4H PRN for PAIN-SEVERE (8- 10) Prescribed by: TASH ALARCON on 05/31/19 0058 Oxycodone HCl/Acetaminophen 1 Each Tablet, 1 TAB PO Q6H PRN for PAIN-SEVERE (8- 10) Prescribed by: TASH ALARCON on 07/22/19 015 Paroxetine Hcl 20 Mg Tablet, 20 MG PO HS, (Reported) Potassium Chloride 10 Meq Tab.prt.sr, 1 EACH PO BID WITH MEALS, (Reported) Prednisone 20 Mg Tab, 40 MG PO DAILY Prescribed by: TASH ALARCON on 07/22/19 015 Sumatriptan 10 Gm Powder, 100 MG PO BID PRN, (Reported) Tiotropium [place] 1 Inh Aerp, 1 CAP IH DAILY, (Reported) 18 MCG CAPS/ONE INHALED DAILY Topiramate 100 Mg Tab, 200 MG PO HS, (Reported) PT TAKES 200MG TWICE DAILY AND 100MG AT NOON Topiramate 100 Mg Tab, 100 MG PO TID, (Reported) Tramadol Hcl 50 Mg Tablet, 100 MG PO Q6H PRN, (Reported) Trazodone HCl 100 Mg Tablet, 200 MG PO HS Prescribed by: FIFI WALKER on 07/18/19 0851 Trazodone Hcl 100 Mg Tab, 200 MG PO HS, (Reported) Warfarin Sodium 10 Mg Tablet, 10 MG PO DAILY@1800 Prescribed by: NNEKA ROBINS on 12/14/12 1141 Patient Home Medication List Home Medication List Reviewed: Yes Review of Systems Constitutional: no symptoms reported EENTM: no symptoms reported Respiratory: cough (chronic) Cardiovascular: no symptoms reported Gastrointestinal: no symptoms reported Genitourinary: no symptoms reported Musculoskeletal: see HPI Skin: no symptoms reported Past Qqhdavl-Dzvacn-Eisujo Hx Past Med/Social Hx: Reviewed Nursing Past Med/Soc Hx Patient Social History Alcohol Use: Denies Use Recreational Drug Use: No Smoking Status: Current Everyday Smoker Type Used: Cigarettes 2nd Hand Smoke Exposure: Yes Recent Foreign Travel: No Contact w/Someone Who Travel: No Recent Infectious Disease Expo: No Recent Hopitalizations: No Physical Abuse: No Sexual Abuse: No Mistreated: No Immunizations Up To Date Date of Pneumonia Vaccine: Dec 14, 2012 Date of Influenza Vaccine: Mar 04, 2013 Seasonal Allergies Seasonal Allergies: No Past Medical History Surgeries: Yes (HIP, suprapubic catheter, Dental) Appendectomy, Gallbladder, Hysterectomy, Orthopedic Respiratory: Yes Asthma, Pneumonia, Chronic Bronchitis, Pulmonary Embolism, COPD, Emphysema Cardiac: Yes (CHF) Neurological: Yes Neuropathy 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 Disorders: No 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 Sexually Transmitted Disease: No HIV/AIDS: No Genitourinary: Yes Kidney Stones, Neurogenic Bladder, UTI-Chronic Gastrointestinal: Yes Abdominal Hernia, Gastroesophageal Reflux, Chronic Constipation, Irritable Bowel Musculoskeletal: Yes Arthritis, Fibromyalgia, Back Injury, Chronic Back Pain, Fractures, Spasms Endocrine: Yes Diabetes, Insulin dep, Hypothyroidsim HEENT: No Hearing Impairment: Hard of Hearing Cancer: Yes Ovarian Psychosocial: Yes ADD/ADHD, Bipolar, Schizophrenia Integumentary: No Blood Disorders: No Family Medical History No Pertinent Family Hx Physical Exam Vital Signs Vital Signs - First Documented 09/12/19 20:24 Temp 37.0 Pulse 112 Resp 20 B/P (MAP) 101/84 (90) Pulse Ox 96 O2 Delivery Nasal Cannula O2 Flow Rate 2.00 Capillary Refill : Less Than 3 Seconds Height, Weight, BMI Height: '" Weight: 275lbs. oz. 124.150094iv; 56.00 BMI Method:Stated General Appearance: No Apparent Distress, Obese Cardiovascular: Regular Rate, Rhythm Respiratory: Chest Non Tender, No Accessory Muscle Use, No Respiratory Distress, Decreased Breath Sounds, Wheezing Neurologic/Psychiatric: Alert, Oriented x3 Skin: Normal Color, Warm/Dry Progress/Results/Core Measures Results/Orders My Orders Orders - TASH ALARCON MD Rx-Oxycodone/Apap 5-325 Mg (Rx-Percocet (09/12/19 20:45) Ketorolac Injection (Toradol Injection) (09/12/19 20:45) Fentanyl Injection (Sublimaze Injection (09/12/19 20:45) Medications Given in ED Current Medications Medications Dose Ordered Sig/Kurtis Route Start Time Stop Time Status Last Admin Dose Admin Fentanyl Citrate 50 mcg ONCE ONCE IM 09/12/19 20:45 09/12/19 20:46 DC 09/12/19 20:44 50 MCG Ketorolac Tromethamine 60 mg ONCE ONCE IM 09/12/19 20:45 09/12/19 20:46 DC 09/12/19 20:44 60 MG Oxycodone/ Acetaminophen 1 ea Q12H PRN PO 09/12/19 20:45 09/12/19 20:47 DC 09/12/19 20:44 1 EA Vital Signs/I&O 09/12/19 09/12/19 20:24 20:47 Temp 37.0 37.0 Pulse 112 112 Resp 20 20 B/P (MAP) 101/84 (90) 101/84 (90) Pulse Ox 96 96 O2 Delivery Nasal Cannula O2 Flow Rate 2.00 2.00 Blood Pressure Mean: 90 Progress Progress Note : Progress Note Advised patient that the ER was not set up to manage chronic pain but since it was Easter weekend and she was not going to be able to contact her doctor or insurance will give a Toradol and fentanyl shot here and send with a 4 pack of oxycodone 5/325 mg pills 1 q 12 hours to help for the weekend in addition to the acetaminophen. This will be a one time occurrence. Call Dr. Daniel first thing Sunday. Departure Impression Primary Impression: Acute exacerbation of chronic low back pain Disposition: HOME, SELF-CARE Condition: Stable Departure-Patient Inst. Decision time for Depature: 20:37 Referrals: [facility] (PCP[facility]Family) Primary Care Physician JAILENE DANIEL MD Patient Instructions: Low Back Pain (DC), Chronic Pain (DC) Add. Discharge Instructions: Follow up with Dr. Daniel Sunday about your chronic pain medicine and getting prior authorization for your chronic pain medication with the pharmacy and insurance. All discharge instructions reviewed with patient and/or family. Voiced under standing. TASH ALARCON MD Sep 12, 2019 20:39
[2019-09-12] MEDS ORDERED: KETOROLAC 60 MG/2 ML VIAL IM ONE (20:45)
[2019-09-12] MEDS ORDERED: RX-OXYCODONE/APAP 5-325 MG #4 TAB PK PO PRN (20:45)
[2019-09-12] MEDS ORDERED: fentaNYL INJECTION 100 MCG/2 ML AMP IM ONE (20:45)
[2019-09-12 20:47] VITALS: BP 101/84
== END 2019-09-12 20:47 | disposition home or self-care (01) ==
LOC: EDUNIT# 20:23 → ER FS 20:24
DX: M54.5 Low back pain (principal); G89.29 Other chronic pain; J43.9 Emphysema, unspecified; I50.9 Heart failure, unspecified; E11.40 Type 2 diabetes mellitus with diabetic neuropathy, unspecified; E03.9 Hypothyroidism, unspecified; K21.9 Gastro-esophageal reflux disease without esophagitis; F31.9 Bipolar disorder, unspecified; F20.9 Schizophrenia, unspecified; F90.9 Attention-deficit hyperactivity disorder, unspecified type; F17.210 Nicotine dependence, cigarettes, uncomplicated; Z85.43 Personal history of malignant neoplasm of ovary; Z88.1 Allergy status to other antibiotic agents; Z88.8 Allergy status to other drugs, medicaments and biological substances; Z79.4 Long term (current) use of insulin; Z79.52 Long term (current) use of systemic steroids; Z79.01 Long term (current) use of anticoagulants
CPT/HCPCS: 99284

== ENCOUNTER 2019-10-21 14:14 | Emergency (ER) | payer MEDICAID ==
[~2019-10-21] VITALS: Ht 157.5 cm; Wt 137.0 kg
--- NOTE | 2019-10-21 14:27 | ED Dyspnea ---
General Stated Complaint: SOB Source of Information: Patient History of Present Illness Date Seen by Provider: October 21, 2019 Time Seen by Provider: 14:23 Initial Comments Patient presents via EMS with complaint that she was feeling shaky and having some shortness of air. History of COPD on 2 L of home oxygen. Last used her home nebulizer over 24 hours ago, has done nothing today. Given a DuoNeb en route by EMS and feeling better on arrival Allergies and Home Medications Allergies Coded Allergies: doxycycline (Unverified Allergy, Mild, nauseated, 08/01/09) spinach (Unverified Allergy, Mild, 08/01/09) alprazolam (Verified Allergy, Unknown, 07/18/19) diazepam (Verified Allergy, Unknown, 07/18/19) sumatriptan (Verified Allergy, Unknown, 07/18/19) Home Medications Atorvastatin 20 Mg Tablet, 20 MG PO HS, (Reported) Azithromycin 250 Mg Tablet, 250 MG PO UD TAKE 2 TABLETS ON DAY ONE THEN TAKE 1 TABLET DAILY FOR FOUR MORE DAYS Prescribed by: FIFI WALKER on 07/18/19 0851 Cephalexin Monohydrate 500 Mg Capsule, 1 EACH PO QID, (Reported) Ciprofloxacin 500 Mg Tablet, 1 TAB PO BID FOR INFECTION Prescribed by: BRAULIO NASH on 04/24/13 2101 Furosemide 40 Mg Tablet, 1 EACH PO BID, (Reported) PT TAKES 40MG PO BID Gabapentin 600 Mg Tab, 600 MG PO QID, (Reported) Haloperidol 10 Mg Tablet, 10 MG PO TID Prescribed by: FIFI WALKER on 07/18/19 0851 Hum Insulin Nph/Reg Insulin Hm 10 Ml Vial, 15 UNITS SQ TID, (Reported) Insulin Glargine,Hum.rec.anlog 300 Unit/3 Ml Insuln.pen, 10 UNITS SQ HS Prescribed by: NNEKA ROBINS on 12/14/12 1141 Ipratropium Anderson 0.5 Mg/2.5 Ml Nebu, 0.5 MG IH Q6H PRN, (Reported) Ipratropium/Albuterol Sulfate 4 Gm Aer.w.adap, 1 PUFF IH QID, (Reported) Loratadine 10 Mg Tablet, 10 MG PO DAILY, (Reported) Lurasidone Hcl 80 Mg Tablet, 80 MG PO HS, (Reported) Lurasidone Hcl 40 Mg Tablet, 40 MG PO DAILY, (Reported) TAKES IN AM DAILY Meclizine Hcl 25 Mg Tablet, 1 EACH PO TID PRN, (Reported) Meloxicam 7.5 Mg Tablet, 7.5 MG PO DAILY, (Reported) Nitrofurantoin/Nitrofuran Mac 100 Mg Capsule, 100 MG PO BID Prescribed by: GUALBERTO DOUGHERTY on 04/14/13 175 Nystatin 1 Each Powder.ea., 0 TOP BID PRN SPRINKLE ON AFFECTED AREA Prescribed by: GUALBERTO DOUGHERTY on 04/14/131754 Olanzapine 10 Mg Tab, 10 MG PO BID PRN for ANXIETY, (Reported) Oxcarbazepine 150 Mg Tablet, 300 MG PO DAILY, (Reported) Oxycodone HCl/Acetaminophen 1 Each Tablet, 1 EACH PO Q4H PRN for PAIN-SEVERE (8- 10) Prescribed by: TASH ALARCON on 05/31/19 0058 Oxycodone HCl/Acetaminophen 1 Each Tablet, 1 TAB PO Q6H PRN for PAIN-SEVERE (8- 10) Prescribed by: TASH ALARCON on 07/22/19156 Paroxetine Hcl 20 Mg Tablet, 20 MG PO HS, (Reported) Potassium Chloride 10 Meq Tab.prt.sr, 1 EACH PO BID WITH MEALS, (Reported) Prednisone 20 Mg Tab, 40 MG PO DAILY Prescribed by: TASH ALARCON on 07/22/19156 Sumatriptan 10 Gm Powder, 100 MG PO BID PRN, (Reported) Tiotropium Anderson 1 Inh Aerp, 1 CAP IH DAILY, (Reported) 18 MCG CAPS/ONE INHALED DAILY Topiramate 100 Mg Tab, 200 MG PO HS, (Reported) PT TAKES 200MG TWICE DAILY AND 100MG AT NOON Topiramate 100 Mg Tab, 100 MG PO TID, (Reported) Tramadol Hcl 50 Mg Tablet, 100 MG PO Q6H PRN, (Reported) Trazodone HCl 100 Mg Tablet, 200 MG PO HS Prescribed by: FIFI WALKER on 07/18/19 0851 Trazodone Hcl 100 Mg Tab, 200 MG PO HS, (Reported) Warfarin Sodium 10 Mg Tablet, 10 MG PO DAILY@1800 Prescribed by: NNEKA ROBINS on 12/14/12 1141 Patient Home Medication List Home Medication List Reviewed: Yes Review of Systems Review of Systems Constitutional: No dizziness, No fever; malaise; No weakness EENTM: no symptoms reported Respiratory: cough, short of breath, wheezing Cardiovascular: No chest pain, No edema, No palpitations, No syncope Gastrointestinal: No abdominal pain, No constipation, No diarrhea, No loss of appetite, No nausea; vomiting Musculoskeletal: back pain, joint pain Skin: No change in color, No rash Past Umfpgjv-Xhhame-Ruirex Hx Past Med/Social Hx: Reviewed Nursing Past Med/Soc Hx Patient Social History Type Used: Cigarettes 2nd Hand Smoke Exposure: Yes Recent Hopitalizations: No Immunizations Up To Date Date of Pneumonia Vaccine: Dec 14, 2012 Date of Influenza Vaccine: Mar 04, 2013 Seasonal Allergies Seasonal Allergies: No Past Medical History Surgeries: Yes (HIP, suprapubic catheter, Dental) Appendectomy, Gallbladder, Hysterectomy, Orthopedic Respiratory: Yes Asthma, Pneumonia, Chronic Bronchitis, Pulmonary Embolism, COPD, Emphysema Cardiac: Yes (CHF) Neurological: Yes Neuropathy 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 Disorders: No 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 Sexually Transmitted Disease: No HIV/AIDS: No Genitourinary: Yes Kidney Stones, Neurogenic Bladder, UTI-Chronic Gastrointestinal: Yes Abdominal Hernia, Gastroesophageal Reflux, Chronic Constipation, Irritable Bowel Musculoskeletal: Yes Arthritis, Fibromyalgia, Back Injury, Chronic Back Pain, Fractures, Spasms Endocrine: Yes Diabetes, Insulin dep, Hypothyroidsim HEENT: No Hearing Impairment: Hard of Hearing Cancer: Yes Ovarian Psychosocial: Yes ADD/ADHD, Bipolar, Schizophrenia Integumentary: No Blood Disorders: No Family Medical History No Pertinent Family Hx Physical Exam Vital Signs Vital Signs - First Documented 10/21/19 10/21/19 14:16 15:06 Temp 36.9 Pulse 105 Resp 20 B/P (MAP) 114/63 (80) Pulse Ox 94 O2 Delivery Nasal Cannula O2 Flow Rate 2.00 FiO2 92 Capillary Refill : Height, Weight, BMI Height: '" Weight: 275lbs. oz. 124.465347jd; 56.00 BMI Method:Stated General Appearance: No Apparent Distress, WD/WN HEENT: PERRL/EOMI, Normal ENT Inspection Neck: Non Tender, Supple Respiratory: No Respiratory Distress, Wheezing (moderate expiratory) Cardiovascular: Regular Rate, Rhythm, No JVD, Normal Peripheral Pulses Gastrointestinal: Non Tender, Soft Extremity: Normal Capillary Refill, Non Tender Neurologic/Psychiatric: Alert, Oriented x3, No Motor/Sensory Deficits, Normal Mood/Affect Skin: Normal Color, Warm/Dry Progress/Results/Core Measures Results/Orders Lab Results Laboratory Tests Test 10/21/19 14:40 Range/Units White Blood Count 9.0 4.3-11.0 10^3/uL Red Blood Count 4.27 L 4.35-5.85 10^6/uL Hemoglobin 13.5 11.5-16.0 G/DL Hematocrit 43 35-52 % Mean Corpuscular Volume 101 H 80-99 FL Mean Corpuscular Hemoglobin 32 25-34 PG Mean Corpuscular Hemoglobin Concent 31 L 32-36 G/DL Red Cell Distribution Width 14.2 10.0-14.5 % Platelet Count 195 130-400 10^3/uL Mean Platelet Volume 10.1 7.4-10.4 FL Neutrophils (%) (Auto) 75 42-75 % Lymphocytes (%) (Auto) 18 12-44 % Monocytes (%) (Auto) 6 0-12 % Eosinophils (%) (Auto) 1 0-10 % Basophils (%) (Auto) 0 0-10 % Neutrophils # (Auto) 6.8 1.8-7.8 X 10^3 Lymphocytes # (Auto) 1.6 1.0-4.0 X 10^3 Monocytes # (Auto) 0.5 0.0-1.0 X 10^3 Eosinophils # (Auto) 0.1 0.0-0.3 10^3/uL Basophils # (Auto) 0.0 0.0-0.1 10^3/uL Sodium Level 143 135-145 MMOL/L Potassium Level 4.5 3.6-5.0 MMOL/L Chloride Level 105 98-107 MMOL/L Carbon Dioxide Level 27 21-32 MMOL/L Anion Gap 11 5-14 MMOL/L Blood Urea Nitrogen 10 7-18 MG/DL Creatinine 0.79 0.60-1.30 MG/DL Estimat Glomerular Filtration Rate > 60 BUN/Creatinine Ratio 13 Glucose Level 164 H 70-105 MG/DL Calcium Level 8.8 8.5-10.1 MG/DL Corrected Calcium 9.0 8.5-10.1 MG/DL Total Bilirubin 0.3 0.1-1.0 MG/DL Aspartate Amino Transf (AST/SGOT) 14 5-34 U/L Alanine Aminotransferase (ALT/SGPT) 17 0-55 U/L Alkaline Phosphatase 157 H 40-136 U/L Total Protein 6.3 L 6.4-8.2 GM/DL Albumin 3.8 3.2-4.5 GM/DL My Orders Orders - ALBA FELTON DO Ed Iv/Invasive Line Start (10/21/19 14:20) Chest 1 View Ap/Pa Only (10/21/19 14:20) Cbc With Automated Diff (10/21/19 14:20) Comprehensive Metabolic Panel (10/21/19 14:20) Methylprednisolone Sod Succ (Solu-Medrol (10/21/19 14:30) Albuterol/Ipra Inhalation Soln (Duoneb I (10/21/19 14:30) Svn Small Volume Nebulizer (10/21/19 14:20) Ns Iv 1000 Ml (Sodium Chloride 0.9%) (10/21/19 15:15) Medications Given in ED Current Medications Medications Dose Ordered Sig/Kurtis Route Start Time Stop Time Status Last Admin Dose Admin Albuterol/ Ipratropium 3 ml ONCE ONCE INH 10/21/19 14:30 10/21/19 14:31 DC 10/21/19 14:43 3 ML Methylprednisolone Sodium Succinate 125 mg ONCE ONCE IVP 10/21/19 14:30 10/21/19 14:31 DC 10/21/19 14:43 125 MG Vital Signs/I&O 10/21/19 10/21/19 14:16 15:06 Temp 36.9 Pulse 105 Resp 20 B/P (MAP) 114/63 (80) Pulse Ox 94 92 O2 Delivery Nasal Cannula Nasal Cannula O2 Flow Rate 2.00 3.00 FiO2 92 Diagnostic Imaging Comments INDICATION: Shortness of breath and COPD. TIME OF EXAM: 02:53 p.m. Correlation is made with prior chest from 07/27/2019. FINDINGS: The heart size is normal. The pulmonary vascularity is unremarkable. The lungs are clear. No infiltrate, effusion or pneumothorax is detected. IMPRESSION: No acute cardiopulmonary process is detected. Dictated on workstation # [id number] Dict: 10/21/19 1505 Trans: 10/21/19 1508 [id number] Interpreted by: MARY LUNDBERG MD Electronically signed by: Departure Impression Primary Impression: COPD exacerbation Disposition: HOME, SELF-CARE Condition: Improved Departure-Patient Inst. Referrals: JAILENE DANIEL MD (PCP/Family) Primary Care Physician Patient Instructions: Exacerbation of COPD (DC) Add. Discharge Instructions: Call Dr Daniel to schedule a follow up appointment in 1 week, sooner if you are not improving. Return to the nearest ER if your symptoms get worse. Scripts Albuterol Sulfate (PROAIR HFA) 1 Puff Puff 2 PUFF IH Q4H, #1 PUFF 1 PUFF = 90 MCG Prov: ALBA FELTON DO 10/21/19 Prednisone (Prednisone) 50 Mg Tab 50 MG PO DAILY, #7 TAB Prov: ALBA FELTON DO 10/21/19 ALBA FELTON DO October 21, 2019 14:27
[2019-10-21] MEDS ORDERED: RT-ALBUTEROL/IPRATROPIUM 3 ML (DUONEB) VIAL INH ONE (14:30)
[2019-10-21] MEDS ORDERED: methylPREDNISolone 125 MG (Solu-MEDROL) VIAL IVP ONE (14:30)
--- NOTE | 2019-10-21 15:05 | NUR ---
Patient normally wears 2 liters of oxygen at home. EMS bumped her up to 4 liters. At arrival to ER, JUAN DAVID Diaz bumped her back to 2 liters. At this time, JUAN DAVID Diaz increased her to 3 liters.
--- NOTE | 2019-10-21 15:08 | Diagnostic Imaging Report ---
INDICATION: Shortness of breath and COPD. TIME OF EXAM: 02:53 p.m. Correlation is made with prior chest from 07/27/2019. FINDINGS: The heart size is normal. The pulmonary vascularity is unremarkable. The lungs are clear. No infiltrate, effusion or pneumothorax is detected. IMPRESSION: No acute cardiopulmonary process is detected. Dictated by: Dictated on workstation # [id number]
[2019-10-21] MEDS ORDERED: NS IV 1000 ML 1,000 ML IV SCH (15:15)
[2019-10-21 15:20] LABS: HEMATOCRIT 43 % (35-52); HEMOGLOBIN 13.5 G/DL (11.5-16.0); LYMPHOCYTES % (AUTO) 18 % (12-44); MEAN CORPUSCULAR HEMOGLOBIN 32 PG (25-34); MEAN CORPUSCULAR HGB CONC 31 G/DL (32-36); MEAN CORPUSCULAR VOLUME 101 FL (80-99); MEAN PLATELET VOLUME 10.1 FL (7.4-10.4); MONOCYTES % (AUTO) 6 % (0-12); PLATELET COUNT 195 10^3/uL (130-400); RED CELL DISTRIBUTION WIDTH 14.2 % (10.0-14.5)
[2019-10-21 15:21] LABS: BASOPHILS % (AUTO) 0 % (0-10); EOSINOPHILS # (AUTO) 0.1 10^3/uL (0.0-0.3); EOSINOPHILS % (AUTO) 1 % (0-10); LYMPHOCYTES # (AUTO) 1.6 X 10^3 (1.0-4.0); MONOCYTES # (AUTO) 0.5 X 10^3 (0.0-1.0); NEUTROPHILS # (AUTO) 6.8 X 10^3 (1.8-7.8); NEUTROPHILS % (AUTO) 75 % (42-75)
[2019-10-21 15:23] LABS: BILIRUBIN,TOTAL 0.3 MG/DL (0.1-1.0); BUN/CREATININE RATIO 13; CALCIUM 8.8 MG/DL (8.5-10.1); CARBON DIOXIDE 27 MMOL/L (21-32); CHLORIDE 105 MMOL/L (98-107); CREATININE SERUM 0.79 MG/DL (0.60-1.30); GFR ESTIMATED > 60; GLUCOSE 164 MG/DL (70-105); POTASSIUM 4.5 MMOL/L (3.6-5.0); SODIUM 143 MMOL/L (135-145)
[2019-10-21 15:24] LABS: ALANINE AMINOTRANSFERASE 17 U/L (0-55); ALBUMIN 3.8 GM/DL (3.2-4.5); ALKALINE PHOSPHATASE 157 U/L (40-136); TOTAL PROTEIN 6.3 GM/DL (6.4-8.2)
[2019-10-21] MEDS ORDERED: PRD50T PO (15:26)
[2019-10-21] MEDS ORDERED: RT-ALBUINH IH (15:26)
[2019-10-21 15:54] VITALS: BP 116/67
--- OUTSIDE RECORDS SUMMARY | 2019-10-21 18:09 | XMS REPORT | Encounter Summary ---
Author Author [facility] [place] Address Unknown Phone Unavailable Care Team Providers Care Bulk Driver Name Role Phone PCP Unavailable Encounter Details Care Team Description Date Type Department [facility] [address] [address] [place] [phone] 01/02/1997 Inpatient Historical Social History Date Tobacco Use Types Packs/Day Years Used Never Assessed Sex Assigned at Date Recorded Not on file Industry Job Start Date Occupation Not on file Not on file Not on file Travel End Travel History Travel Start No recent travel history available. documented as of this encounter Plan of Treatment Not on filedocumented as of this encounter Visit Diagnoses Not on filedocumented in this encounter
--- OUTSIDE RECORDS SUMMARY | 2019-10-21 18:09 | XMS REPORT | Encounter Summary ---
Author Author [facility] [place] Organization [facility] Address Unknown Phone Unavailable Care Team Providers Care Patient Care Secretary Name Role Phone PCP Unavailable Encounter Details Care Team Description Date Type Department Ahmet Murrell MD NO ADDRESS ON FILE Edema (Primary Dx) 12/02/2009 Outpatient JOPL Conversion Historical [facility] [place] [id number] Social History Date Tobacco Use Types Packs/Day Years Used Never Assessed Sex Assigned at Date Recorded Not on file Industry Job Start Date Occupation Not on file Not on file Not on file Travel End Travel History Travel Start No recent travel history available. documented as of this encounter Plan of Treatment Not on filedocumented as of this encounter Visit Diagnoses Diagnosis Edema - Primary documented in this encounter
--- OUTSIDE RECORDS SUMMARY | 2019-10-21 18:09 | XMS REPORT | Clinical Summary ---
Author [facility] Address Unknown Phone Unavailable Care Team Providers Care Supervisor Inspection Name Role Phone PCP Unavailable Allergies Not on File Medications Not on file Active Problems Not on file Social History Date Tobacco Use Types Packs/Day Years Used Never Assessed Sex Assigned at Date Recorded Not on file Industry Job Start Date Occupation Not on file Not on file Not on file Travel End Travel History Travel Start No recent travel history available. Last Filed Vital Signs Not on file Plan of Treatment Health Maintenance Due Date Last Done Comments CERVICAL CANCER SCREENING 2002 BREAST CANCER SCREENING 2012 INFLUENZA VACCINE 01/02/2019 PNEUMOCOCCAL VACCINE 0-64 Aged Out No longer el igible based YEARS on patient's age to complete this topic Results Not on filefrom Last 3 Months
--- OUTSIDE RECORDS SUMMARY | 2019-10-21 18:09 | XMS REPORT | Encounter Summary ---
Author Author [facility] [place] Organization [facility] Address Unknown Phone Unavailable Care Team Providers Care Supreme Court Judge Name Role Phone PCP Unavailable Encounter Details Care Team Description Date Type Department [facility] [place] [address] [address] [place] [phone] 09/02/1996 Inpatient Historical Social History Date Tobacco Use [...]
--- OUTSIDE RECORDS SUMMARY | 2019-10-21 18:09 | XMS REPORT ---
Author Author [employer] [facility] [facility] [employer] Address [address] [address] Care Team Providers Care Purchasing Contracting Clerk Name Role Phone Hilario Machado Unavailable [facility] Unavailable Migration, Doctor Unavailable Unavailable [...] Doctor Unavailable Unavailable Migration, Doctor Unavailable Unavailable DORIAN BYRNES, TASH Aguilar Unavailable Unavailable HERNANDEZ PA, GUALBERTO Rowan Unavailable Unavailable Migration, Doctor Unavailable Unavailable TOSHA RICHARDSON, KAYLEE Benites Unavailable Unavailable DENISE BYRNES, FIFI Chapman Unavailable Unavailable Migration, Doctor Unavailable Unavailable Migration, Doctor Unavailable Unavailable Migration, Doctor Unavailable Unavailable Migration, Doctor Unavailable Unavailable Migration, Doctor Unavailable Unavailable Migration, Doctor Unavailable Unavailable Migration, Doctor Unavailable Unavailable Migration, Doctor Unavailable Unavailable Migration, Doctor Unavailable Unavailable Migration, Doctor Unavailable Unavailable Migration, Doctor Unavailable Unavailable Migration, Doctor Unavailable Unavailable Migration, Doctor Unavailable Unavailable Migration, Doctor Unavailable Unavailable Migration, Doctor Unavailable Unavailable PAULINA ZARAGOZA Unavailable Migration, Doctor Unavailable Unavailable JOHN Stephens Unavailable Migration, Doctor Unavailable Unavailable Migration, Doctor Unavailable Unavailable Migration, Doctor Unavailable Unavailable Lavell Bautista Unavailable Unavailable Unavailable Unavailable [facility] Migration, Doctor Unavailable Unavailable Migration, Doctor Unavailable Unavailable Migration, Doctor Unavailable Unavailable Migration, Doctor Unavailable Unavailable Migration, Doctor Unavailable Unavailable Migration, Doctor Unavailable Unavailable BRAULIO NASH DO K Unavailable Unavailable NNEKA ROBINS MD Unavailable Unavailable JULIENNE BYRNES, NNEKA Floyd Unavailable Unavailable GUALBERTO DARLING MD Unavailable Unavailable Migration, Doctor Unavailable Unavailable Migration, Doctor Unavailable Unavailable Migration, Doctor Unavailable Unavailable Migration, Doctor Unavailable Unavailable ALBA FELTON DO Unavailable Unavailable MD Harpal BAUTISTA PCP Unavailable Unavailable Unavailable Unavailable Unavailable Unavailable Unavailable Unavailable Allergies Normalized Allergy Reported Date of Reaction(s) Care Provider Facility Allergy Type classification allergen Allergy Onset Drug Allergy Serotonin-1b SUMAtriptan 07-18-2019 - no alonzo NG [facility] Via (20 sources.) and Translations: [facility] Translations: Serotonin-1d [ Sumatriptan] Hospital - [ Allergy to Receptor [place] substance] Agonists (00840) Medications Current Medications Medication Ingredient Drug Dose Dates Status Sig Sig Care Class(es) (Normalized) (Original) Provid er Azithromyci Azithromyci Macrolide 07-18-19 Active no Azithro mycin no n (2 n Antimicrobi 20 information Active 250 name sources.) al ORAL As Directed July 18, 2019 8:51am TAKE 2 TABLETS ON DAY ONE THEN TAKE 1 TABLET DAILY FOR FOUR MORE DAYS no Cephalexin Cephalospor Active no Cephalexin no information in information Monohydrate name (2 Antibacteri Active 1 sources.) al ORAL Four Times Daily 7 haloperidol Haloperidol Typical 07-18-19 Active no Haloperid ol no 10 mg oral Antipsychot 20 information Active 10 name tablet (2 ic ORAL Three sources.) Times A Day July 18, 2019 8:51am no Hum Insulin no Active no Hum Insulin no information Nph/Reg information information Nph/Reg name (2 Insulin Hm Insulin Hm sources.) Active 15 SUBCUTANEOUS Three Times A Day no Ipratropium no Active no Ipratropium/ no information /Albuterol information information Albuterol nam e (4 Sulfate Sulfate sources.) Active 1 RESPIRATORY (INHALATION) Four Times Daily 12-13-2012 Completed no Ipratrop no name inform ium/Albu ation terol Sulfate Disconti nued NOT APPLICAB LE December 13, 2012 meloxicam meloxicam Nonsteroida Active no Meloxicam n o 7.5 mg oral l information Active 7.5 name tablet (2 Anti-inflam ORAL Daily sources.) [facility] Drug no Nitrofurant Nitrofuran 04-14-20 Active no Nitrofurant o no information oin Antibacteri 13 information in name (2 al Macrocrystal sources.) s Active 100 ORAL Twice A Day April 14, 2013 5:56pm no Nystatin Polyene 04-14-20 Active no Nystatin no information Antifungal 13 information Active 0 name (2 TOPICAL sources.) Twice Daily And Prn 1 April 14, 2013 5:55pm SPRINKLE ON AFFECTED AREA Completed/Discontinued Medications Medication Ingredient Drug Dose Dates Status Sig Sig Care Class(es) (Normalized) (Original) Provid er no Oxycodone no 12-14-19 Complete no Oxycodone no information Hcl/Acetami information 13 d information Hc l/Acetamin name (2 nophen ophen sources.) Discontinued NOT APPLICABLE December 13, 2012 no Sumatriptan no 12-14-19 Complete no Sumatriptan n o information Succ/Naprox information 13 d information Martel cc/Naproxe name (2 en Sod n Sod sources.) Discontinued NOT APPLICABLE December 13, 2012 Problems Problem Normalized Date Last Normalized Normalized Provider Fa cility Classification Problem(s) Recorded Problem Problem Sta tus Duration Residual Acquired 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 TASH ENYART , [facility] Via codes; absence of [facility] [place] unclassified both cervix Hospital - (6 sources.) and uterus [place] (13039) Residual Acquired 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 TASH ENYART , [facility] Via codes; absence of [facility] [place] unclassified other Hospital - (6 sources.) specified [place] parts of (33853) digestive tract Allergic Allergy status 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 TASH ENYART , [facility] Via reactions (22 to other [facility] [place] sources.) antibiotic Hospital - agents status [place] Translations: (95472) [ ALLERGY STATUS TO OTH DRUG/MEDS/BIOL SUB] Attention-defi Attention-defi Chronic Active TASH ENYART , [facility] Via cit conduct cit [facility] [place] and disruptive hyperactivity [facility] disorders (9 unspecified (55965) sources.) type Mycoses (1 Candidiasis of 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 GUALBERTO [facility] Vi a source.) skin and nails [place] DARLING MD [facility] (14595) Other upper Chronic Chronic Active FIFI DENISE , [facility] Vi a respiratory sinusitis, [facility] [place] infections (10 unspecified Hospital - sources.) Translations: [place] [ Sinusitis] () Residual Contact with 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 TASH ENYART , [facility] V ia codes; and [facility] [place] unclassified (suspected) Hospital - (5 sources.) exposure to [place] environmental () tobacco smoke (acute) (chronic) Other Diarrhea, 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 TASH ENYART , [facility] Via gastrointestin unspecified MD [place] andrade disorders Hospital - (6 sources.) [place] () Other Fibromyalgia 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 TASH ENYART , [facility] V ia connective [facility] [place] tissue disease Hospital - (6 sources.) [place] () Esophageal Gastro-esophag Chronic Active TASH ENYART , [facility] Via disorders (20 eal reflux [facility] [place] sources.) disease Hospital - without [place] esophagitis () Headache; Headache 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 FIFI DENISE , [facility] Via including Translations: [facility] [place] migraine (10 [ Headache] Hospital - sources.) [place] () Residual Hypersomnia, 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 NNEKA ROBINS [facility] Via codes; unspecified , [facility] [place] unclassified Hospital - (1 source.) [place] () Other Hypotension, 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 NNEKA ROBINS [facility] Via circulatory unspecified , [facility] [place] disease (1 Hospital - source.) [place] () Thyroid Hypothyroidism Chronic Active TASH ENYART , [facility] Via disorders (9 , unspecified [facility] [place] sources.) Hospital - [place] () Other ear and Infective 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 NNEKA ROBINS [facility] Via sense organ otitis , [facility] [place] disorders (1 externa, Hospital - source.) unspecified [place] () Other Irritable Chronic Active TASH ENYART , [facility] Via gastrointestin bowel syndrome MD [place] andrade disorders without Hospital - (6 sources.) diarrhea [place] () 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 , [facility] Via aftercare (14 (current) use [facility] [place] sources.) of Hospital [facility] () Other longterm 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 TASH ENYART , [facility] Via aftercare (20 (current) use [facility] [place] sources.) of insulin [facility] () Other longterm 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 TASH ENYART , [facility] Via aftercare (1 (current) use [facility] [place] source.) of systemic Hospital - steroids [place] (02209) Other Long-term 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 NNEKA ROBINS [facility] Via aftercare (1 (current) use , [facility] [place] source.) of insulin Hospital [facility] (92314) Spondylosis; Low back pain 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 TASH ENYART , [facility] Via intervertebral Translations: [facility] [place] disc [ Acute Hospital - disorders; exacerbation [place] other back of chronic low (98548) problems (18 back pain] sources.) Complications Mechanical 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 GUALBERTO [facility] Via of surgical complication Kirstin DARLING procedures or of cystostomy MD Hospital - medical care [place] (2 sources.) (66177) Nausea and Nausea with 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 TASH ENYART , [facility] V ia vomiting (10 vomiting, [facility] [place] sources.) unspecified Hospital - Translations: [place] [ Nausea, (83199) vomiting, and diarrhea] Other lower Other 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 FIFI WALKER [facility] Vi a respiratory abnormalities [facility] [place] disease (2 of breathing Hospital - sources.) [place] (71369) Nonspecific Other chest 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 TASH ENYART , [facility] Via chest pain (5 pain [facility] [place] sources.) Translations: Hospital - [ Chest wall [place] pain, (65847) Non-cardiac chest pain] Other nervous Other chronic Chronic Active TASH ENYART , [facility] Via system pain [facility] [place] disorders (11 Hospital - sources.) [place] (57374) Immunizations Other 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 NNEKA ROBINS [facility] Via and screening specified , [facility] [place] for infectious vaccinations Hospital - disease (1 against [place] source.) streptococcus (83332) pneumoniae [pneumococcus] Other Pain in joint, 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 GUALBERTO NG [facility] Via non-traumatic pelvic region [facility] joint and thigh Hospital - disorders (6 [place] sources.) (18031) Cancer of Personal 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 TASH ENYART , [facility] Via ovary (20 history of [facility] [place] sources.) malignant Hospital - neoplasm of [place] ovary (51350) Calculus of Personal 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 TASH ENYART , [facility] Via urinary tract history of [facility] [place] (6 sources.) urinary Hospital - calculi [place] (99236) Other lower Respiratory 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 [facility] insufficiency [facility] [place] disease (2 [address] Hospital sources.) (52586) Diabetes Type 2 Chronic Active TASH ALARCON , [facility] Via mellitus with diabetes [facility] [place] complications mellitus with Hospital - (20 sources.) diabetic [place] neuropathy, (89329) unspecified Procedures Procedure Normalized Procedure Procedure Result Performer Facility Date 06-27-2013 Collection venous no information no name [facility] blood venipuncture [facility] ([id number]) 06-27-2013 Comprehensive no information no name [facility] metabolic panel [facility] (38276) 06-27-2013 Drug screen, no information no name [facility] qualitate/multi [facility] (99327) 06-27-2013 Lipid panel [facility] information [facility] (15995) 06-27-2013 [facility]invasive [facility]pulse [facility] (45998) 06-27-2013 Prothrombin time no information no name [facility] (36537) 12-16-2012 Prothrombin time no information no name [facility] (56650) 03-23-2014 Screening test pure no information no name [facility] tone air only [facility] (68402) 06-27-2013 Urine albumin no information no name [facility] quantitative [facility] (19111) 06-27-2013 Urine albumin no information no name [facility] semiquantitative [facility] (49072) Immunizations The data below is from unstructured sources Date Immunization Status No known immunizations Immunization Event Date Not Given Reason Dose Number [facility] Assistant Lot Number Vaccine Information Statement (VIS) Deta il Immunization Event Date Not Given Reason Dose Number [facility] Practice Assistant Lot Number Vaccine Information Statement (VIS) Deta il Results Test Name Value Interpretation Reference Range Date Time Fa cility (Normalized) (Normalized) (Medline Reference) laboratory on 2019-10-21 Albumin 3.8 g/dL (NEG) 3.4 - 5.4 g/dL 10-21-2019 PENDING LOCATION [Mass/Vol] 10:40-0400 [facility] (36275) ALP [Catalytic 157 U/L (H) 44 - 147 U/L 10-21-2019 PEND ING LOCATION activity/Vol] 10:40-0400 [facility] (79537) ALT [Catalytic 17 U/L (NEG) 4 - 40 U/L 10-21-2019 PENDIN G LOCATION activity/Vol] 10:40-0400 [facility] (36657) Anion gap 11 mmol/L (NEG) 3 - 11 mmol/L 10-21-2019 PENDING LOCATION [Moles/Vol] 10:40-0400 [facility] (47145) AST [Catalytic 14 U/L (NEG) 10 - 34 U/L 10-21-2019 PENDI NG LOCATION activity/Vol] 10:40-0400 [facility] (26136) Basophils (Bld) 0.0 10*3/uL (NEG) 0 - 0.3 10*3/uL 10-21-2019 PENDING LOCATION [#/Vol] 10:40-0400 [facility] (34164) Basophils/100 0 % (NEG) 0.5 - 1 % 10-21-2019 PENDING LOCATION WBC (Bld) 10:40-0400 [facility] (45476) Bilirubin 0.3 mg/dL (NEG) 0.1 - 1.2 mg/dL 10-21-2019 [facility] [Mass/Vol] 10:40-0400 [facility] (25130) Calcium 8.8 mg/dL (NEG) 8.5 - 10.2 mg/dL 10-21-2019 PENDI NG LOCATION [Mass/Vol] 10:40-0400 [facility] (46203) Calcium 9.0 mg/dL (NEG) 8.5 - 10.2 mg/dL 10-21-2019 PENDI NG LOCATION [Mass/Vol] 10:40-0400 [facility] (03049) Chloride 105 mmol/L (NEG) 95 - 106 mmol/L 10-21-2019 PENDI NG LOCATION [Moles/Vol] 10:40-0400 [facility] (74443) CO2 [Moles/Vol] 27 mmol/L (NEG) 23 - 29 mmol/L 10-21-2019 P ENDING LOCATION 10:40-0400 [facility] (10970) Creatinine 0.79 mg/dL (NEG) 10-21-2019 PENDING LOCATI ON [Mass/Vol] 10:40-0400 [facility] (90931) Creatinine and > (no code) 10-21-2019 PENDING LOC ATION Glomerular 10:40-0400 [facility] (92664) filtration rate.predicted panel - Serum, Plasma or Blood Eosinophils 0.1 10*3/uL (NEG) 0.05 - 0.5 10-21-2019 PENDING LOCATION (Bld) [#/Vol] 10*3/uL 10:40-0400 [facility] (86346) Eosinophils/100 1 % (NEG) 1 - 4 % 10-21-2019 [facility] LOCATION WBC (Bld) 10:40-0400 [facility] (48900) Erythrocyte 14.2 % (NEG) 11.6 - 14.6 % 10-21-2019 [facility] LOCATION distribution 10:40-0400 [facility] (45181) width (RBC) [Ratio] Glucose 164 mg/dL (H) 60 - 125 mg/dL 10-21-2019 PEND[facility] LOCATION [Mass/Vol] 10:40-0400 [facility] (68700) Hematocrit (Bld) 43 % (NEG) 36.1 - 50.3 % 10-21-2019 P ENDING LOCATION [Volume 10:40-0400 [facility] (15231) fraction] Hemoglobin (Bld) 13.5 g/dL (NEG) 12.1 - 17.2 g/dL 10-21-2019 PEND[facility] LOCATION [Mass/Vol] 10:40-0400 [facility] (11394) Lymphocytes 1.6 10*3/uL (NEG) 0.9 - 2.9 10-21-2019 PENDING LOCATION (Bld) [#/Vol] 10*3/uL 10:40-0400 [facility] (02885) Lymphocytes/100 18 % (NEG) 20 - 40 % 10-21-2019 [facility] LOCATION WBC (Bld) 10:40-0400 [facility] (27595) MCH (RBC) 32 pg (NEG) 27 - 31 pg 10-21-2019 PENDING LOC ATION [Entitic mass] 10:40-0400 [facility] (94912) MCHC (RBC) 31 g/dL (L) 32 - 36 g/dL 10-21-2019 PENDING LOCATION [Mass/Vol] 10:40-0400 [facility] (86120) MCV (RBC) 101 (H) 10-21-2019 PENDING LOCATI ON [Entitic vol] 10:40-0400 [facility] (76168) Monocytes (Bld) 0.5 10*3/uL (NEG) 0.3 - 0.9 10-21-2019 PEND ING LOCATION [#/Vol] 10*3/uL 10:40-0400 [facility] (96972) Monocytes/100 6 % (NEG) 2 - 8 % 10-21-2019 PENDING LOCATION WBC (Bld) 10:40-0400 [facility] (13341) Neutrophils 6.8 10*3/uL (NEG) 1.7 - 7 10*3/uL 10-21-2019 [facility] LOCATION (Bld) [#/Vol] 10:40-0400 [facility] (44502) Neutrophils/100 75 % (NEG) 40 - 60 % 10-21-2019 [facility]END[facility] G LOCATION WBC (Bld) 10:40-0400 [facility] (36786) Platelet mean 10.1 (NEG) 10-21-2019 PENDING LOCA TION volume (Bld) 10:40-0400 [facility] (66639) [Entitic vol] Platelets (Bld) 195 10*3/uL (NEG) 150 - 450 10-21-2019 PEND ING LOCATION [#/Vol] 10*3/uL 10:40-0400 [facility] (97585) Potassium 4.5 mmol/L (NEG) 3.7 - 5.2 mmol/L 10-21-2019 PEND ING LOCATION [Moles/Vol] 10:40-0400 [facility] (22064) Protein 6.3 g/dL (L) 6.4 - 8.3 g/dL 10-21-2019 PENDING LOCATION [Mass/Vol] 10:40-0400 [facility] (41089) RBC (Bld) 4.27 10*6/uL (L) 4.2 - 6.1 10-21-2019 PENDING L OCATION [#/Vol] 10*6/uL 10:40-0400 [facility] (05460) Sodium 143 mmol/L (NEG) 135 - 145 mmol/L 10-21-2019 PEND ING LOCATION [Moles/Vol] 10:40-0400 [facility] (04624) Urea nitrogen 10 mg/dL (NEG) 7 - 20 mg/dL 10-21-2019 PENDI NG LOCATION [Mass/Vol] 10:40-0400 [facility] (00296) Urea 13 mg/mg (no code) 6 - 22 mg/mg 10-21-2019 PENDING L OCATION nitrogen/Creatin 10:40-0400 [facility] (81423) ine [Mass ratio] WBC (Bld) 9.0 10*3/uL (NEG) 3.5 - 10.5 10-21-2019 PENDING L OCATION [#/Vol] 10*3/uL 10:40-0400 [facility] (87837) not yet categorized on 2019-08-29 OVERALL RESULT: NOT DETECTED (N) [facility] (82727) Control neg~neg~pass (no code) [facility] (48774) Control neg~pass (no code) [facility] (25419) Exp date 09-29-21 (no code) [facility] (92895) Exp date 01-06-22 (no code) [facility] (10763) Lot # [id number] (no code) [facility] (75670) Lot # [id number] (no code) [facility] (29224) SARS-CoV-2 RNA: Negative (N) [facility] (41377) Symptom NOT GIVEN (no code) [facility] (48660) laboratory on 2019-08-29 SARS coronavirus Negative (N) Replaced by [facility] RNA PALOMO+probe [facility] (Unsp spec) [facility] (56029) Specimen source NOT GIVEN (no code) [facility] Vital Signs Vital Sign Value Interpretation Reference Date Time Care Prov ider Facility (Normalized) (Normalized) Range Body height 157.48 cm (no code) cm 03-23-2014 [facility] 12:130400 [facility] (56954) Body height 157.48 cm (no code) cm 06-27-2013 [facility] 08:58-0500 [facility] (01460) Body 97.9 [degF] (no code) 97.8 - 99.0 03-23-2014 [facility] temperature [degF[facility] 12: [facility] (52160) Body 98.6 [degF] (no code) 97.8 - 99.0 06-27-2013 [facility] temperature [degF] 08:58-0500 [facility] (38442) Body weight 121.56 kg (no code) kg 03-23-2014 [facility] 12:13-0400 [facility] (36578) Body weight 135.58 kg (no code) kg 06-27-2013 [facility] 08:58-0500 [facility] (92942) Interventions No Information Plan of Treatment Normalized Care Care Detail Care Activity Date Care Provider F acility Activity Patient Education no information no information [facility] [place] [facility] [address] [place] [address] (13535) Patient referral no information no information [facility] [place] [facility] [address] [place] [address] (76473) Goals Patient Goal Desired Goal no information no information Social History Normalized Code Original Code Date Value Tobacco smoking status Tobacco smoking status no information Smokes tobacco daily [facility] (finding) no information no information 04-24-2013 Denies Use no information no information 04-24-2013 No no information no information 04-24-2013 Denies no information no information 09-12-2019 Current [facility] Smoker no information no information 09-12-2019 Cigarettes Sex Assigned At Sex Assigned At no information F emale Tobacco smoking status Tobacco smoking status no information Current [facility] smoker no information no information 10-21-2019 Light Tobacco S moker Functional Status The data below is from unstructured sources No known Functional Status No known Cognitive Status No Functional Status information availableNo Functional Status information availableNo Functional Status information availableNo Functional Status information available Mental Status The data below is from unstructured sourcesNo Mental Status Information AvailableNo Mental Status Information AvailableNo Mental Status Information Available Encounters Encounter Normalized Encounter Encounter Diagnosis Care Provi dash Organization Date Type 10-21-2019 Emergency department no information (no phone) [facility] - patient visit [facility] (no phone) 10-21-2019 10-21-2019 Emergency department no information ALBA RUIZ DO [facility] patient visit (no phone) [facility] (no phone) 09-12-2019 Emergency department no information (no phone) [facility] [place] - patient visit Hospital (no phone) 09-12-2019 09-12-2019 Emergency department no information TASH Arias (no [facility] [place] - patient visit phone) [facility] 09-12-2019 (no phone) 08-09-2019 Emergency department no information FIFI WALKER MD (no [facility] [place] - patient visit phone) [facility] 08-09-2019 (no phone) 07-27-2019 Emergency department no information FIFI WALKER MD (no [facility] [place] - patient visit phone) [facility] 07-27-2019 (no phone) 07-21-2019 Emergency department no information TASH Arias (no [facility] [place] - patient visit phone) [facility] 07-21-2019 (no phone) 07-18-2019 Emergency department no information TASH Arias (no [facility] [place] - patient visit phone) FIFI WALKER [facility] 07-18-2019 (no phone) FIFI Chapman (no phone) DENISE BYRNES (no phone) FIFI WAKLER MD (no phone) FIFI WALKER MD (no phone) 07-15-2019 Emergency department no information KAYLEE GIVENS DO (no [facility] [place] - patient visit phone) [facility] 07-15-2019 (no phone) 05-30-2019 Emergency department no information TASH Arias (no [facility] [place] - patient visit phone) [facility] 05-30-2019 (no phone) 04-24-2013 Emergency department no information BRAULIO NASH DO (no [facility] [place] - patient visit phone) [facility] 04-24-2013 (no phone) 04-14-2013 Emergency department no information GUALBERTO ANDERSON [facility] [place] - patient visit (no phone) [facility] 04-14-2013 (no phone) 12-13-2012 Evaluation and no information NNEKA ROBINS MD [facility] [place] - management of (no phone) [facility] 12-14-2012 inpatient (no phone) 10-16-2019 Patient encounter no information Lavell Bautista (no phone ) [facility] (no phone) [facility] (no phone) 09-12-2019 Patient encounter no information TASH ALARCON MD ( no [facility] [place] procedure phone) [facility] (no phone) 08-29-2019 Patient encounter no information Lavell Bautista (no phone ) [facility] procedure (no phone) (no phone) [facility] (no phone) 08-09-2019 Patient encounter no information FIFI WALKER MD (no [facility] [place] procedure phone) [facility] (no phone) 07-27-2019 Patient encounter no information FIFI WALKER MD (no [facility] [place] procedure phone) [facility] (no phone) 07-21-2019 Patient encounter no information TASH ALARCON MD ( no [facility] [place] procedure phone) [facility] (no phone) 07-18-2019 Patient encounter no information FIFI WALKER MD (no [facility] [place] procedure phone) [facility] (no phone) 05-30-2019 Patient encounter no information no name no or ganization name procedure 08-06-2014 Patient encounter no information GUALBERTO SAUCEDO (no [facility] [place] procedure phone) [facility] (no phone) 06-05-2014 Patient encounter no information GUALBERTO SAUCEDO (no [facility] procedure phone) [facility] (no phone) Medical Equipment The data below is from unstructured sourcesNo Medical Equipment Information availableNo Medical Equipment Information availableNo Medical Equipment Information available Payers Normalized Payer Value Private Health Insurance no information [id number]) Unknown no information ([id number]) Evaluation note Note Type Note Facility Evaluation No Assessments Information Available A [facility] note [facility] [facility] ([id number] Instructions Clinical Instructions No known clinical instructions Recommended Patient Decision Aids No known recommended patient decision aids Advance Directives Directive Description Start Date PERMISSION TO SHARE Directive Response Recor ded Date Advance Directives N 05/16 6:04pm Health Care Power of Entry Level Financial Analyst N 12/13/12 6:04pm Advance Directive Response Recorded Date/Time Advance Directives No Ap 2019 8:24pm Health Care Power of Entry Level Financial Analyst No September 12, 2019 8:24pm Resuscitation Status Full Code September 12, 2019 8:24pm Advance Directive Response Recorded Date/Time Advance Directives No Ma y 2019 2:16pm Health Care Power of Entry Level Financial Analyst No October 21, 2019 2:16pm Resuscitation Status Full Code October 21, 2019 2:16pm Chief Complaint and Reason for Visit Chief Complaint Back Problems Reason for Visit [id number] Chief Complaint Respiratory Problems Reason for Visit [id number] Additional Source Comments This clinical document has been generated using [employer] software that has been certified by the Office of the National Coordinator for Health Information Technology (ONC 15.99.04.3023.Diam.31.00.0.479722) and the National Committee for Harvest Field Ticketer (NCQA, as an eMeasure certified technology). FOR [...] BASED ON T HE PRIMARY CLINICAL RECORDS. [employer] provides no warranty or guara ntee of the accuracy or completeness of information in this document.The followi ng information is based on time limited clinical information UNRECOGNIZED CONTENT PROVIDED BELOW FOR UNRECOGNIZED SECTION REASON FOR VISIT [id number]
--- OUTSIDE RECORDS SUMMARY | 2019-10-21 18:09 | XMS REPORT | Encounter Summary ---
Author Author [facility], [place] Organization [facility] Audrey Murphy, [facility] Address Unknown Phone Unavailable Care Team Providers Care Warehouse Shipping Associate Name Role Phone PCP Unavailable Encounter Details Care Team Description Date Type Department Hernesto Lazaro MD [address] [place] [address] Pain in limb (Primary Dx) 11/09/1999 Inpatient Historical [place] M t Historical [place] Pro Fees Social History Date Tobacco Use Types Packs/Day Years Used Never Assessed Sex Assigned at Date Recorded Not on file Industry Job Start Date Occupation Not on file Not on file Not on file Travel End Travel History Travel Start No recent travel history available. documented as of this encounter Plan of Treatment Not on filedocumented as of this encounter Visit Diagnoses Diagnosis Pain in limb - Primary documented in this encounter
--- OUTSIDE RECORDS SUMMARY | 2019-10-21 18:09 | XMS REPORT | Encounter Summary ---
Author [facility] [place] Audrey Nash [facility] Address Unknown Phone Unavailable Care Team Providers Care Software Test Manager Name Role Phone PCP Unavailable Encounter Details Care Team Description Date Type Department [facility], [place] [address] [place] [phone] 06/06/1997 Inpatient [facility] Aleyda in Historical Medical Surgical [address] [facility] [place] [phone] Social History Date Tobacco Use Types Packs/Day [...]
--- OUTSIDE RECORDS SUMMARY | 2019-10-21 18:09 | XMS REPORT | Encounter Summary ---
Author Author [facility] [place] Organization [facility]rey [facility] Address Unknown Phone Unavailable Care Team Providers Care Senior Grant Writer Name Role Phone PCP Unavailable Encounter Details Care Team Description Date Type Department [facility], [place] [address] [address] [place] [phone] 09/24/1996 Inpatient Historical Social History Date Tobacco Use [...]
--- OUTSIDE RECORDS SUMMARY | 2019-10-21 18:09 | XMS REPORT | Encounter Summary ---
Author Author [facility] [place] Organization [facility] Address Unknown Phone Unavailable Care Team Providers Care Loading Supervisor Name Role Phone PCP Unavailable Encounter Details Care Team Description Date Type Department [facility], [place] [address] [address] [place] [phone] 12/15/1996 Inpatient Historical Social History Date Tobacco Use [...]
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
--- OUTSIDE RECORDS SUMMARY | 2019-10-21 18:10 | XMS REPORT | Encounter Summary ---
Author Author [facility] Organization [facility] Address Unknown Phone Unavailable Care Team Providers Care Residential Building Inspector Name Role Phone Robby Rajan APRN Unavailable Lorraine Hathaway MD PCP Encounter Details Care Team Description Date Type Department Lorraine Hathaway MD [address] [place] [address] 09/21/2015 Abstract [facility] Primar y Care [place] [address] [place] [address] Social History Date Tobacco Use Types Packs/Day [...]
--- OUTSIDE RECORDS SUMMARY | 2019-10-21 18:10 | XMS REPORT | Encounter Summary ---
Author Author [facility] Organization [facility] Address Unknown Phone Unavailable Care Team Providers Care System Safety Manager Name Role Phone Robby Rajan APRN Unavailable Lorraine Hathaway MD PCP Encounter Details Care Team Description Date Type Department Vincenzo Rodríguez MD [address] [place] [address] 08/06/2015 Abstract [facility] Primar y Care [place] [address] [place] [address] Social History Date Tobacco Use [...]
--- OUTSIDE RECORDS SUMMARY | 2019-10-21 18:10 | XMS REPORT | Encounter Summary ---
Author Author [facility] Organization [facility] Address Unknown Phone Unavailable Care Team Providers Care Boat Builder Name Role Phone Franco Rajanory Мария KILLIAN Unavailable [facility], External Provider PCP Unavailable Reason for Visit * Reason Comments Medication Refill Encounter Details Care Team Description Date Type Department Vincenzo Rodríguez MD [address] [place] [address] 11/18/2016 Refill [facility] Orthop edics [address] [address] Social History Date Tobacco Use Types [...]
--- OUTSIDE RECORDS SUMMARY | 2019-10-21 18:10 | XMS REPORT | Encounter Summary ---
Author Author [facility] Organization [facility] Address Unknown Phone Unavailable Care Team Providers Care Energy Efficient Site Manager Name Role Phone Robby Rajan APRN Unavailable Lorraine Hathaway MD PCP Encounter Details Care Team Description Date Type Department Lorraine Hathaway MD [address] [place] [address] 08/25/2015 Abstract [facility] Primar y Care [place] [address] [place] [address] Social History Date Tobacco Use [...]
--- OUTSIDE RECORDS SUMMARY | 2019-10-21 18:10 | XMS REPORT | Encounter Summary ---
Author Author [facility] Organization [facility] Address Unknown Phone Unavailable Care Team Providers Care Magnetic Tape Composer Operator Name Role Phone Robby Rajan EXPLOSIVE TECHNICIAN Unavailable Lorraine Hathaway MD PCP Reason for Referral * Eval and Treat (Routine) Referred By Contact Referred To Contact Status Reason Specialty Diagnoses / Procedures Robby Rajan, CONSTANTIN [address] [place] [address] Canelo Patton MD [address] [place] [address] Closed Neurology Diagnoses Carpal tunnel syndrome of right wrist Cubital tunnel syndrome on right Ulnar tunnel syndrome, unspecified laterality Carpal tunnel syndrome, left Ulnar tunnel syndrome, left Reason for Visit * Reason Comments Hand Pain Bilat Hand Pain/Numbness Encounter Details Care Team Description Date Type Department Robby Rajan EXPLOSIVE TECHNICIAN [address] [place] [address] Carpal tunnel syndrome of right wrist (P rimary Dx); Cubital tunnel syndrome on right; Ulnar tunnel syndrome, unspecified laterality; Carpal tunnel syndrome, left; Ulnar tunnel syndrome, left 08/04/2015 Office Visit [facility] Orthop edics [address] [address] Social History Date Tobacco Use [...] Signs Reading Time Taken Comments Vital Sign 102/62 08/04/2015 10:20 AM PRODUCE WRAPPER Blood Pressure - - Pulse - - Temperature - - Respiratory Rate - - Oxygen Saturation - - Inhaled Oxygen Concentration 115.7 kg (255 lb) 08/04/2015 10:20 AM PRODUCE WRAPPER Weight 157.5 cm (5' 2") 08/04/2015 10:20 AM PRODUCE WRAPPER Height 46.64 08/04/2015 10:20 AM PRODUCE WRAPPER Body Mass Index documented in this encounter Progress Notes * Robby Rajan, EXPLOSIVE TECHNICIAN - 08/06/2015 11:34 AM PRODUCE WRAPPER This patient is seen for evaluation. Bilateral and pain, numbness, weakness. She's had on and off, problems for, months. It's been worse. The last 2-3 week s. She had a right carpal tunnel release. saw the 10-15 years ago with lobito dunn. She states the surgery helped. She's had a fracture in the left hand, ye ars ago. Otherwise, she's had no injury or surgery to either hand. She's been having weakness opening cans and jars. She's been dropping items. S he has to hold her hands, dependently, and shake him to get some of the feeling. This occurs mostly at night. She states. The left side and all fingers are n one. On the right side. It's mostly the index, and long fingers, that she thin ks all of her fingers may be affected. On the right side as well. She is vague about this. On examination she had positive Tinel sign. Left cubital, tunnel median nerve a nd ulnar nerve left wrist. Right upper extremity. She has a positive Tinel ove r the median nerve negative Tinel cubital, tunnel, questionably positive Tinel u lnar nerve right wrist. She has numbness to light touch in the office today. Good color, good motion of her digits. Assessment bilateral carpal tunnel, right, recurrent, post right carpal tunnel r elease. 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 Questionably cubital t unnel bilaterally. Plan EMG, nerve conduction study with Dr. Patton. She is on voltaren presently, t wice a day. We'll recheck her this workup. See her sooner when necessary UCE WRAPPER documented in this encounter Plan of Treatment Order Schedule Name Type Priority Associated Diag noses Ordered: 08/04/2015 AMB REFERRAL TO NEUROLOGY Outpatient Routine Carp al tunnel syndrome of Referral right wrist Cubital tunnel syndrome on right Ulnar tunnel syndrome, unspecified laterality Carpal tunnel syndrome, left Ulnar tunnel syndrome, left documented as of this encounter Visit Diagnoses Diagnosis Carpal tunnel syndrome of right wrist - Primary Carpal tunnel syndrome Cubital tunnel syndrome on right Lesion of ulnar nerve Ulnar tunnel syndrome, unspecified late rality Carpal tunnel syndrome, left Carpal tunnel syndrome documented in this encounter
--- OUTSIDE RECORDS SUMMARY | 2019-10-21 18:10 | XMS REPORT | Encounter Summary ---
Author Author [facility] Organization [facility] Address Unknown Phone Unavailable Care Team Providers Care Offshore Wind Turbine Technician Name Role Phone Robby Rajan APRN Unavailable Lorraine Hathaway MD PCP Encounter Details Care Team Description Date Type Department Lorraine Hathaway MD [address] [place] [address] 09/15/2015 Abstract [facility] Primar y Care [place] [address] [place] [address] Social History Date Tobacco Use [...]
--- OUTSIDE RECORDS SUMMARY | 2019-10-21 18:10 | XMS REPORT | Encounter Summary ---
Author Author [facility] Organization [facility] Address Unknown Phone Unavailable Care Team Providers Care Craniologist Name Role Phone Robby Rajan APRN Unavailable [facility], External Provider PCP Unavailable Reason for Visit * Reason Comments Medication Refill Encounter Details Care Team Description Date Type Department Lorraine Hathaway MD [address] [place] [address] 05/09/2016 Refill [facility] Primar y Care [address] [address] Social History Date Tobacco Use [...]
--- OUTSIDE RECORDS SUMMARY | 2019-10-21 18:10 | XMS REPORT | Encounter Summary ---
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 (Primary Dx) 08/22/2015 Emergency [facility] Emergency Department [address] [id number] Social History Date Tobacco Use Types Packs/Day [...] Signs Reading Time Taken Comments Vital Sign 130/79 08/22/2015 12:24 AM CDT Blood Pressure - - Pulse 36.7 C (98.1 F) 08/22/2015 12:24 AM CDT Temperature 20 08/22/2015 12:24 AM CDT Respiratory Rate 95% 08/22/2015 12:24 AM CDT Oxygen Saturation - - Inhaled Oxygen Concentration 123.4 kg (272 lb) 08/22/2015 12:24 AM CDT Weight 157.5 cm (5' 2") 08/22/2015 12:24 AM CDT Height 49.75 08/22/2015 12:24 AM CDT Body Mass Index documented in this encounter Discharge Instructions * Instructions* Halie Leung, RN - 08/22/[address] Hathaway Sunday for continued headache Continue home medications * Attachments The following attachments cannot be sent through Care Everywhere.* HEADACHE ([place]) documented in this encounter Medications at Time of Discharge Start Date End Date Medication Sig Dispensed Refills 06/25/2015 LEVOTHYROXINE 50 mcg TAKE 1 TABLET 30 Tablet 1 tablet (50 MCG) BY MOUTH DAILY LAND ACQUISITION MANAGER. 04/27/2015 pregabalin (LYRICA) 150 Take 1 60 Capsule 5 mg Capsule Capsule (150 mg) by mouth every 12 hours. 04/27/2015 dabigatran etexilate TAKE 1 60 Capsule 5 (PRADAXA) 150 mg Capsule CAPSULE BY MOUTH TWICE DAILY. 04/27/2015 potassium chloride Take 1 Tablet 30 Tablet 5 (K-DUR) 20 mEq Extended (20 mEq) by Release tablet mouth daily company driver. 04/27/2015 omeprazole (PRILOSEC) 20 Take 1 Tablet [...] by hour capsule mouth daily. 01/15/2013 Insulin [place], 1 Package 11 Disposable, (BD INSULIN PEN NEEDLE UF SHORT) 31 X 5/16 " Misc NdleIndications: Type II or unspecified type diabetes mellitus without mention of complication, not stated as uncontrolled 10/05/2007 Oxygen-Air Delivery Take 2 L/min 0 Systems Misc Leisa by inhalation daily at bedtime. 10/05/2007 ACCU-CHEK ACTIVE CARE by See Admin 0 Misc Kit Instructions route. Before meals, at bedtime, and as needed 06/25/2015 12/17/2015 ipratropium-albuterol TAKE 3 ML BY 90 mL 0 (DUONEB) 0.5 mg-3 mg(2.5 INHALATION mg base)/3 mL Solution EVERY 4 HOURS for Nebulization NEEDED FOR SHORTNESS OF BREATH OR WHEEZING. documented as of this encounter ED Notes * Jim Ramirez MD - 08/22/2015 12:34 AM CDT HISTORY OF PRESENT ILLNESS Ayden Odom, a 45 y.o. female presents to the ED with a Chief Complaint o f Headache Subjective HPI Comments: Here with increasing headache. Known migraine headache disorder. A ssociated nausea and photo/phonophobia. Headache Associated symptoms: nausea Associated symptoms: no abdominal pain, no congestion, no fatigue, no fever and no neck stiffness REVIEW OF SYSTEMS Review of Systems Constitutional: Negative for fever, activity change, appetite change, fatigue an d unexpected weight change. HENT: Negative for congestion. Respiratory: Negative for shortness of breath. Cardiovascular: Negative for chest pain. Gastrointestinal: Positive for nausea. Negative for abdominal pain. Genitourinary: Negative for menstrual problem. Musculoskeletal: Negative for arthralgias and neck stiffness. Neurological: Positive for headaches. Negative for weakness. PAST MEDICAL HISTORY REVIEWED MEDICAL: Patient has [...] mercedes(784.0); Bipolar disorder, unspecified; Seizure disorder; Acute [place] (03/2010); CHF (congestive heart failure); and HIV [...] She has a 27 pack-year smoking h stefany. She has never used smokeless tobacco. She reports that she drinks alcoho l. She reports that she uses illicit drugs (Methamphetamines and Marijuana). She reports that she currently engages in sexual activity and has had male partners. No history on file. Social History Other Topics Concern Not on file PROBLEM LIST: Patient has Unspecified Asthma; Bipolar Disorder, Unspecified; Unspecified Hered itary and Idiopathic Peripheral Neuropathy; Chronic Airway Obstruction, not Else where Classified; Pulmonary Embolism; Chronic pain; DM w/o complication type II; Sleep Apnea; Urinary Retention; Hyperlipidemia; Narcolepsy and Cataplexy; Non c ompliance with medical treatment; Needs flu shot; Methamphetamine abuse; Exposur e to TB; Carpal tunnel syndrome; Cubital tunnel syndrome on right; Ulnar tunnel syndrome; Amphetamine abuse, continuous; Patellofemoral arthralgia of left knee; COPD with exacerbation; Vomiting; Pneumonia, organism unspecified; Methamphetam ine use; HIV (human immunodeficiency virus infection); Fibromyalgia; Obesity (BM I 35.0-39.9 without comorbidity); Type 1 diabetes, uncontrolled, with neuropathy ; Type 2 diabetes, controlled, with neuropathy; Tobacco use; Cigarette dependenc e; Medication overdose; and Acute cystitis with hematuria on her problem list. ALLERGIES Aloe vera; Doxycycline; Tape; Xanax; and Zofran HOME MEDICATIONS Patient's Home Medications Current Home Medications [facility]FA 90 MCG INHALER ATORVASTATIN (LIPITOR) 20 MG TABLET DABIGATRAN ETEXILATE (PRADAXA) 150 MG CAPSULE DICLOFENAC SODIUM (VOLTAREN) 50 MG TABLET, DELAYED RELEASE (E.C.) FUROSEMIDE (LASIX) 40 MG TABLET INSULIN NEEDLES, DISPOSABLE, (BD INSULIN PEN NEEDLE UF SHORT) 31 X 5/16 " MISC NDLE IPRATROPIUM-ALBUTEROL (COMBIVENT RESPIMAT) 20-100 MCG/ACTUATION MIST IPRATROPIUM-ALBUTEROL (DUONEB) 0.5 MG-3 MG(2.5 MG BASE)/3 ML SOLUTION FOR NEBUL IZATION LEVOTHYROXINE 50 MCG TABLET LORATADINE (CLARITIN) 10 MG TABLET LURASIDONE (LATUDA) 120 MG TABLET TABLET METFORMIN (GLUCOPHAGE) 1,000 MG TABLET OMEPRAZOLE (PRILOSEC) 20 MG TABLET, DELAYED RELEASE (E.C.) OXYGEN-AIR DELIVERY SYSTEMS MISC LEISA POTASSIUM CHLORIDE (K-DUR) 20 MEQ EXTENDED RELEASE TABLET PREGABALIN (LYRICA) 150 MG CAPSULE SUMATRIPTAN (IMITREX) 100 MG TABLET TOPIRAMATE (TOPAMAX) 100 MG TABLET TRAMADOL (ULTRAM) 50 MG TABLET TRAZODONE (DESYREL) 100 MG TABLET VENLAFAXINE (EFFEXOR XR) 150 MG EXTENDED RELEASE 24 HOUR CAPSULE VENLAFAXINE (EFFEXOR XR) 75 MG EXTENDED RELEASE 24 HOUR CAPSULE Medications Modified during this Encounter Medications Discontinued during this Encounter Objective PHYSICAL EXAM INITIAL VS BP: 130/79 mmHg (08/22/15 002), Heart Rate: 86 bpm (08/22/1523), Resp: 20 (0 08/22/1523), Temp: 98.1 F (36.7 C) (08/22/1523), Temp src: Oral (23), SpO2: 95 % (08/22/1523), Height: 5' 2" (157.5 cm) (08/22/15 0024), Weight: 123.378 kg (272 lb) (08/22/15 0024), BMI (Calculated): 49.85 (08/22/15 0 024) No LMP recorded. Patient has had a hysterectomy. Physical Exam Constitutional: She is oriented to person, place, and time. She appears well-dev eloped and well-nourished. HENT: Head: Normocephalic and atraumatic. Right Ear: External ear normal. Left Ear: External ear normal. Mouth/Throat: Oropharynx is clear and moist. Eyes: Conjunctivae and EOM are normal. Pupils are equal, round, and reactive to light. Neck: Normal range of motion. Neck supple. Cardiovascular: Normal rate, regular rhythm, normal heart sounds and intact dist al pulses. Pulmonary/Chest: Effort normal and breath sounds normal. Abdominal: Soft. Bowel sounds are normal. Musculoskeletal: Normal range of motion. Neurological: She is alert and oriented to person, place, and time. Skin: Skin is warm and dry. Nursing note and vitals reviewed. DIAGNOSTICS LAB: Labs this ED Encounter - No data to display RADIOLOGY: No orders to display EKG: PROCEDURES Procedures MEDICAL DECISION MAKING AND PLAN OF CARE REEVALUATION CASE DISCUSSED Medications Administered During the ED Stay from 08/21/2015 2350 to 08/22/2015 0 035 Date/Time Order Dose Route Action 08/22/2015 0032 SODIUM CHLORIDE 0.9 % INJECTION SYRINGE 10 mL Push . New Prescriptions for this Encounter LAST VS BP: 130/79 mmHg (08/22/1523), Heart Rate: 86 bpm (08/22/1523), Resp: 20 (0 08/22/1523), Temp: 98.1 F (36.7 C) (08/22/1523), Temp src: Oral (23), SpO2: 95 % (08/22/1523) CLINICAL IMPRESSION Final diagnoses: [G44.039] Episodic paroxysmal hemicrania, not intractable (Primary) CODING MDM Coding Reviewed: previous chart and vitals DISPOSITION, EDUCATION AND MEDICATION RECONCILIATION Medications reconciled. See after visit summary for patient education on discha rged patients. ATTESTATION STATEMENTS Analgesia, rest, follow up with PCP or here if symptoms worsen or persist documented in this encounter Plan of Treatment Not on filedocumented as of this encounter Visit Diagnoses Diagnosis Episodic paroxysmal hemicrania, not int ractable - Primary Episodic paroxysmal hemicrania documented in this encounter Administered Medications Action Date Dose Rate Site Medication Order MAR Action 08/22/2015 12:37 AM CDT 50 mcg fentaNYL PF (SUBLIMAZE) 50 mcg/mL Push injection 50 mcg 50 mcg, IV, ONE TIME ONLY, 1 dose, 08/22/15 at 0045, Routine 08/22/2015 1:08 AM CDT 50 mcg fentaNYL PF (SUBLIMAZE) 50 mcg/mL Push injection 50 mcg 50 mcg, IV, ONE TIME ONLY, 1 dose, 08/22/15 at 0115, Routine 08/22/2015 12:37 AM CDT 5 mg prochlorperazine (COMPAZINE) injection 5 Push mg 5 mg, IV, EVERY 4 HOURS PRN, Starting 08/22/15 at 0033, Until 08/22/15 at 0323, Nausea, Routine 08/22/2015 12:32 AM CDT 10 mL SODIUM CHLORIDE 0.9 % INJECTION SYRINGE Push 1 dose, Starting 08/22/15 at 0028, Until 08/22/15 at 0032, Heredia TOMI: cabinet override, 08/22/2015 12:37 AM CDT 500 mL 1000 mL/hr sodium chloride 0.9% bolus solution 500 New Bag mL 500 mL, IV, ONE TIME ONLY, 1 dose, 08/22/15 at 0045, at 1,000 mL/hr, Administer over 30 Minutes, Routine documented in this encounter
--- OUTSIDE RECORDS SUMMARY | 2019-10-21 18:10 | XMS REPORT | Clinical Summary ---
Author Author [facility] Organization [facility] Address Unknown Phone Unavailable Care Team Providers Care Compounder Name Role Phone PCP Unavailable Allergies No Known Allergies Medications End [...] Comments Vital Sign 114/1 06/26/2011 6:40 AM BLUEPRINT DEVELOPER Blood Pressure 68 06/26/2011 6:40 AM BLUEPRINT DEVELOPER Pulse 36.7 C (98 F) 06/26/2011 6:40 AM BLUEPRINT DEVELOPER Temperature 20 06/26/2011 6:40 AM BLUEPRINT DEVELOPER Respiratory Rate - - Oxygen Saturation - - Inhaled Oxygen Concentration - - Weight 158.8 cm (5' 2.5") 06/23/2011 12:03 AM BLUEPRINT DEVELOPER Height - - Body Mass Index Plan of Treatment Health Maintenance Due Date Last Done Comments Varicella Vaccines (1 of 1973 2 - 2-dose childhood series) DTaP,Tdap,and Td Vaccines 1991 (1 - Tdap) MMR Vaccines-Adult 1991 Cervical Cancer Screening 1993 Influenza Vaccine (Season 02/03/2020 05/04/2011 Ended) Pneumo-Vaccine: Peds (0-5 Aged Out 06/04/2006 No l onger eligible based on patient's age to Yrs) & At-Risk Patients complete this topic (6-64 Yrs) Results Not on filefrom Last 3 Months
--- OUTSIDE RECORDS SUMMARY | 2019-10-21 18:10 | XMS REPORT | Encounter Summary ---
Author Author [facility] Organization [facility] Address Unknown Phone Unavailable Care Team Providers Care Government Sales Manager Name Role Phone Robby Rajan APRN Unavailable Lorraine Hathaway MD PCP Encounter Details Care Team Description Date Type Department Lorraine Hathaway MD [address] [place] [address] 08/18/2015 Abstract [facility] Primar y Care [place] [address] [place] [address] Social History Date Tobacco Use [...]
--- OUTSIDE RECORDS SUMMARY | 2019-10-21 18:10 | XMS REPORT | Encounter Summary ---
Author Author [facility] Organization [facility] Address Unknown Phone Unavailable Care Team Providers Care Behavioral Health Tech Name Role Phone Robby Rajan APRN Unavailable [facility], External Provider PCP Unavailable Reason for Visit * Reason Comments Medication Refill Encounter Details Care Team Description Date Type Department Lorraine Hathaway MD [address] [place] [address] 03/24/2016 Refill [facility] Primar y Care [address] [address] Social History Date Tobacco Use [...]
--- OUTSIDE RECORDS SUMMARY | 2019-10-21 18:10 | XMS REPORT | Clinical Summary ---
Author Author [facility] Organization [facility] Address Unknown Phone Unavailable Care Team Providers Care Shell Machine Operator Name Role Phone Robby Rajan SPINNING MACHINE OPERATOR Unavailable [facility], External Provider PCP Unavailable Allergies Comments Active Allergy Reactions Severity Noted Date Aloe Vera Unknown Doxycycline Nausea and 03/25/2008 Vomiting Sumatriptan Succinate Hives 12/17/2015 Any tape; irritates and tears skin Adhesive Tape Other (See Comments) Alprazolam Hives 04/15/2010 "Interacts with my geodon" 06/09/10 Ondansetron Hcl (Pf) Other (See 06/09/2010 Comments) Medications End Date Status Medication Sig Dispensed Refills Start Date Active ACCU-CHEK ACTIVE CARE by See Admin 0 10/05/19 0 Misc Kit Instructions 8 route. Before meals, at bedtime, and as needed Active Oxygen-Air Delivery Take 2 L/min 0 Systems Misc Leisa by inhalation 8 daily at bedtime. Active Insulin Grady, 1 Package 11 Disposable, (BD INSULIN 3 PEN NEEDLE UF SHORT) 31 X 10/17 " Misc NdleIndications: Type II or unspecified type diabetes mellitus without mention of complication, not stated as uncontrolled Active traZODone (DESYREL) 100 Take 3 Tabs 90 Tab 5 mg tablet (300 mg) by 5 mouth daily at bedtime 3 tabs. Additional Information Patient taking differently: 400 mg Oral DAILY AT BEDTIME, 3 tabs, Reported on 12/17/2015 6:48 PM Active topiramate (TOPAMAX) 100 Take 1 Tab 150 Tab 5 0 mg tablet (100 mg) by 5 mouth see administratio n instructions 100mg am, noon, & evening; 200mg at bedtime. Active lurasidone (LATUDA) 120 Take 1 Tab 30 Tab 5 mg Tablet tablet (120 mg) by 5 mouth daily With food. Additional Information Patient taking differently: 60 mg Oral, (No frequency reported), With food Twice per day, Reported on 12/17/2015 6:48 PM Active venlafaxine (EFFEXOR XR) Take 1 Cap 30 Cap 5 0 150 mg Extended Release (150 mg) by 5 24 hour capsule mouth daily Takes with 75mg. Active venlafaxine (EFFEXOR XR) Take 1 Cap 30 Cap 5 0 75 mg Extended Release 24 (75 mg) by 5 hour capsule mouth daily. Active pregabalin (LYRICA) 150 Take 1 60 Capsule 5 mg Capsule Capsule (150 5 mg) by mouth every 12 hours. Additional Information Patient taking differently: 150 mg Oral EVERY 8 HOURS, Reported on 12/17/2015 6:48 PM Active dabigatran etexilate TAKE 1 60 Capsule 5 04/27 (PRADAXA) 150 mg Capsule CAPSULE BY 5 MOUTH TWICE DAILY. 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 Active omeprazole (PRILOSEC) 20 Take 1 Tablet 30 Tablet 11 mg Tablet, Delayed (20 mg) by 5 Release mouth daily (E.C.)Indications: Poor before appetite breakfast. Active loratadine (CLARITIN) 10 Take 1 Tablet 30 Tablet 5 mg tablet (10 mg) by 5 mouth daily. Active ipratropium-albuterol INHALE 1 PUFF 4 Gram 5 (COMBIVENT RESPIMAT) BY MOUTH FOUR 5 20-100 mcg/actuation Mist TIMES DAILY. Active furosemide (LASIX) 40 mg TAKE 1 TABLET 60 Tablet 5 tablet BY MOUTH 5 TWICE DAILY. Active albuterol HFA 90 mcg Take 2 Puffs 8.5 Gram 5 04/05 inhaler by inhalation 5 every 6 hours as needed for Wheezing. Active LEVOTHYROXINE 50 mcg TAKE 1 TABLET 30 Tablet 1 tablet (50 MCG) BY 6 MOUTH DAILY POP SINGER. Active FLUCONAZOLE (DIFLUCAN Take by 0 ORAL) mouth. Active ibuprofen (MOTRIN) 800 mg TAKE ONE 90 Tablet 0 tablet TABLET BY 7 MOUTH EVERY 8 HOURS NEEDED FOR MILD PAIN Active Problems Problem Noted Date Acute cystitis with hematuria 06/25/2015 Medication overdose 06/24/2015 Obesity (BMI 35.0-39.9 without comorbidity) 03/09/20 15 Type 1 diabetes, uncontrolled, with neuropathy 03/09 Type 2 diabetes, controlled, with neuropathy 015 Tobacco use 03/09/2015 Cigarette dependence 03/09/2015 HIV (human immunodeficiency virus infection) 015 Fibromyalgia 01/15/2015 Methamphetamine use 09/09/2014 Pneumonia, organism unspecified(486) 08/08/2014 COPD with exacerbation 08/07/2014 Vomiting 08/07/2014 Patellofemoral arthralgia of left knee 04/29/2014 Amphetamine abuse, continuous 11/24/2013 Carpal tunnel syndrome 11/06/2012 Cubital tunnel syndrome on right 11/06/2012 Ulnar tunnel syndrome 11/06/2012 Exposure to TB 08/09/2012 Methamphetamine abuse 12/15/2011 Needs flu shot 06/05/2011 Non compliance with medical treatment 09/23/2010 Narcolepsy and cataplexy 10/07/2009 Hyperlipidemia 07/01/2009 Urinary retention 04/28/2009 Sleep apnea 07/10/2008 Type II or unspecified type diabetes mellitus without mention of 04/14/2008 complication, not stated as uncontrolle d Chronic pain 03/12/2008 Overview: Updating IMO/ICD9 Code and Description Unspecified asthma(493.90) Bipolar disorder, unspecified Unspecified hereditary and idiopathic p eripheral neuropathy Chronic airway obstruction, not elsewhe re classified Pulmonary embolism Resolved Problems Problem Noted Date Resolved Date Chest pain 11/25/2012 01/01/2014 Tendonitis of wrist, right 11/06/2012 01/01/2014 Infectious otitis externa 08/01/2012 01/01/2014 Suicidal ideation 12/01/2010 01/01/2014 Overdose of benzodiazepine 12/01/2010 01/01/2014 Vomiting 05/15/2010 01/01/2014 Cough 05/15/2010 01/01/2014 Sinusitis 05/15/2010 01/01/2014 Mental status change 11/30/2009 01/01/2014 Hip pain 05/15/2008 01/01/2014 Lumbago 01/01/2014 Type II or unspecified type diabetes mellitus without mention of 04/22/2008 complication, not stated as uncontrolle d Embolism and thrombosis of unspecified site 014 Immunizations Name Administration Dates Next Due Ceftriaxone Sodium 1 Gm 08/01/2012, 06/24/2009, , 05/16/2009, Injection 05/15/2009, 05/14/2009, 03/2009 Dexamethasone Sodium 08/21/2011, 04/06/2011, 07/2010, 03/08/2009, Phosphate 4 Mg/mL 12/07/2008 Injection Influenza Vaccine 03/04/2013, 06/16/2006 Influenza Vaccine Quad 03/09/2015 Split 3+ Yrs Pf Im Influenza Vaccine Split 06/05/2011, 04/01/2008 3+ Yrs IM Ketorolac 30 Mg/ml 08/01/2012, 04/02/2012, 07/2011, 12/09/2010, Injection 09/05/2010, 07/22/2010, 12/2008, 12/30/2008, 09/07/2008, 08/27/2008 Ketorolac 60 Mg/2 mL 03/31/2011, 03/22/2011, , 05/02/2010, Injection 08/24/2009, 03/12/2009, , 05/18/2008, 05/15/2008 Methylprednisolone 01/30/2012, 08/21/2011, 08/2010, 08/22/2010, Acetate 80 Mg/mL 06/05/2010, 03/08/2009, 11/2008 Injection Morphine 10 Mg/mL 08/27/2008 Injection Nalbuphine 10 Mg/mL 09/05/2010, 06/05/2010 Injection Pneumococcal Vaccine 06/16/2006 Promethazine 25 Mg 04/02/2012, 06/05/2011, , 03/22/2011, Injection 09/05/2010, 09/05/2010, , 03/12/2009, 12/30/2008, 06/17/2008 Promethazine 50 Mg 06/05/2010, 05/02/2010 Injection Skin Test TB 08/09/2012 Td Vaccine > 7 YO IM 10/05/2005 Family History Medical History Relation Name Comments Healthy Brother Seizures Brother Healthy Brother Healthy Daughter Cancer Father Colon Cancer Father Diabetes Father Heart Disease Father Other Father blood pressure Breast Cancer Mother Cancer Mother Diabetes Mother Heart Disease Mother Stroke Mother Cancer Other grandfather Breast Cancer Other grandmother Cancer Other grandmother Diabetes Other grandmother Heart Disease Other grandmother Stroke Other grandmother Healthy Sister Healthy Son Relation Name Status Comments Brother Alive Brother Alive Daughter Alive Father Maternal Grandfather Maternal Grandmother Mother Other grandfather Other grandmother Paternal Grandfather Paternal Grandmother Sister Alive Son Alive Social History Date Tobacco Use Types Packs/Day Years Used Current Every Day Smoker Cigarettes 1 27 Smokeless Tobacco: Never Used Tobacco Cessation: Ready to Quit: No; Co unseling Given: Yes Comments: STARTED SMOKING AGE 11 Drinks/Week oz/Week Comments Alcohol Use Yes Sex Assigned at Date Recorded Not on file Industry Job Start Date Occupation Not on file Not on file Not on file Travel End Travel History Travel Start No recent travel history available. Last Filed Vital Signs Reading Time Taken Comments Vital Sign 136/76 12/17/2015 6:39 PM CDT Blood Pressure 78 06/25/2015 12:30 AM EYEDOTTER Pulse 36.7 C (98 F) 12/17/2015 6:39 PM CDT Temperature 16 12/17/2015 6:39 PM CDT Respiratory Rate 92% 12/17/2015 6:39 PM CDT Oxygen Saturation - - Inhaled Oxygen Concentration 127.9 kg (282 lb) 12/17/2015 6:39 PM CDT Weight 157.5 cm (5' 2") 12/17/2015 6:39 PM CDT Height 51.58 12/17/2015 6:39 PM CDT Body Mass Index Plan of Treatment Health Maintenance Due Date Last Done Comments PNEUMOCOCCAL VACCINE 0-64 1978 06/16/2006 YEARS (1 of 3 - PCV13) DIABETES ANNUAL RETINAL 1990 EXAM DIABETES MICROALBUMIN 12/12/2012 12/13/2011, 0810/2010 ANNUAL SCREEN DIABETES ANNUAL FOOT EXAM 08/23/2013 08/23/2012 CERVICAL CANCER SCREENING 05/04/2014 05/04/2011, 06/04/2005 BREAST CANCER SCREENING 09/11/2015 09/10/2014, , 08/04/2008 DIABETES HBA1C Q 6 MONTHS 10/26/2015 04/27/2015, 12/31/2013, 08/23/2012, Additional history exists LDL CHOLESTEROL ANNUAL 04/27/2016 04/27/2015, 04/2012, 05/23/2011, Additional history exists INFLUENZA VACCINE 01/02/2019 03/09/2015, 013, 06/05/2011, Additional history exists COLORECTAL SCREENING 08/23/2022 08/23/2012, 08/23, 09/16/2007 Results Not on filefrom Last 3 Months Insurance Type Payer Benefit Subscriber ID Effective Phone Address Plan / Dates Group Medicaid Managed Care [facility] [id number] [facility] Advance Directives For more information, please contact: [phone] Patient Material Processor Explanation Type Date Recorded Advanced Directive POA Advance Directive 10/22/2008 9:13 AM POA Advance Directive Living Will Date Inactivated Comments Code Status Date Activated 08/10/2014 1:37 PM Full Code 08/07/2014 8:04 PM 11/26/2012 12:56 AM Full Code 11/25/2012 1:30 AM 08/23/2012 4:06 PM Full Code 08/23/2012 8:22 AM 08/10/2010 1:34 PM Full Code 08/09/2010 9:54 PM 08/03/2010 4:14 PM Full Code 08/03/2010 9:49 AM
--- OUTSIDE RECORDS SUMMARY | 2019-10-21 18:10 | XMS REPORT | Encounter Summary ---
Author Author [facility] Organization [facility] Address Unknown Phone Unavailable Care Team Providers Care Charge Manager Name Role Phone Robby Rajan APRN Unavailable Lorraine Hathaway MD PCP Encounter Details Care Team Description Date Type Department Lorraine Hathaway MD [address] [place] [address] 09/15/2015 Abstract [facility] Primar y Care [place] [address] [place] [address] Social History Date Tobacco Use [...]
--- OUTSIDE RECORDS SUMMARY | 2019-10-21 18:10 | XMS REPORT | Clinical Summary ---
Author Author [facility] Organization [facility] Address Unknown Phone Unavailable Care Team Providers Care Color Separation Photographer Name Role Phone Unverified, Unverified PCP Unavailable Vincenzo White MD Unavailable Larry Riggs MD Unavailable Source Comments Some departments are not documenting in the electronic medical record. If you d o not see the information that you expected, contact Release of Information in [facility] [employer] Information Management department at [phone] for further assistan ce in locating additional records.[facility] Allergies Not on File Medications Not on [...] Health Maintenance Due Date Last Done Comments HIV SCREENING 1987 DTAP/TDAP VACCINES (1 - 1990 Tdap) HEPATITIS C SCREENING 1990 PHYSICAL (COMPREHENSIVE) 1990 EXAM CERVICAL CANCER SCREENING 1993 BREAST CANCER SCREENING 2012 INFLUENZA VACCINE 03/04/2020 Results Not on filefrom Last 3 Months
--- OUTSIDE RECORDS SUMMARY | 2019-10-21 18:10 | XMS REPORT | Encounter Summary ---
Author Author [facility] Organization [facility] Address Unknown Phone Unavailable Care Team Providers Care Customs Appraiser Name Role Phone Robby Rajan APRN Unavailable Lorraine Hathaway MD PCP Encounter Details Care Team Description Date Type Department Lorraine Hathaway MD [address] [place] [address] 09/15/2015 Abstract [facility] [place] Primar y Care [place] [address] [place] [address] Social History Date Tobacco Use [...]
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
--- OUTSIDE RECORDS SUMMARY | 2019-10-21 18:11 | XMS REPORT | Encounter Summary ---
Author Author [facility] Organization [facility] Address Unknown Phone Unavailable Care Team Providers Care Chip Drier Name Role Phone Robby Rajan APRN Unavailable Lorraine Hathaway MD PCP Reason for Visit * Reason Comments Medication Refill Encounter Details Care Team Description Date Type Department Lorraine Hathaway MD [address] [place] [address] 06/25/2015 Refill [facility] Primar y Care [address] [address] Social History Date Tobacco Use [...]
--- OUTSIDE RECORDS SUMMARY | 2019-10-21 18:11 | XMS REPORT | Encounter Summary ---
Author Author [facility] Organization [facility] Address Unknown Phone Unavailable Care Team Providers Care Button Attaching Machine Operator Name Role Phone Robby Rajan RUBBER DOWN Unavailable Lorraine Hathaway MD PCP Reason for Visit * Eval and Treat (Routine) Referred By Contact Referred To Contact Status Reason Specialty Diagnoses / Procedures Vincenzo Rodríguez MD [address] [place] [address] [facility] Therapy [address] [place] [address] Closed Physical Therapy Diagnoses Contusion of right shoulder, initial encounter Unspecified sprain of unspecified shoulder joint, initial encounter Encounter Details Care Team Description Date Type Department Robby Rajan, RUBBER DOWN [address] [place] [address] Luli Scott (Student), Seismograph Shooter Contusion of right shoulder, initial encounter 07/05/2015 [facility] ort Encounter [facility] [address] [place] [address] Social History Date Tobacco Use Types Packs/Day Years Used Current Every Day Smoker Cigarettes 1 Smokeless Tobacco: Never Used Comments: STARTED SMOKING [...] 1 tablet (50 MCG) BY MOUTH DAILY TALENT ACQUISITION RELATIONSHIP MANAGER. 04/27/2015 pregabalin (LYRICA) 150 Take 1 60 Capsule 5 mg Capsule Capsule (150 mg) by mouth every 12 hours. 04/27/2015 dabigatran etexilate TAKE 1 60 Capsule 5 (PRADAXA) 150 mg Capsule CAPSULE BY MOUTH TWICE DAILY. 04/27/2015 potassium chloride Take 1 Tablet 30 Tablet 5 (K-DUR) 20 mEq Extended (20 mEq) by Release tablet mouth daily recruitment assistant. 04/27/2015 omeprazole (PRILOSEC) 20 Take 1 Tablet [...] by hour capsule mouth daily. 01/15/2013 Insulin [place], 1 Package 11 Disposable, (BD INSULIN PEN [...] OR WHEEZING. documented as of this encounter Miscellaneous Notes * Therapy Treatment - Luli Scott, Seismograph Shooter - 07/05/2015 2:44 PM FIBERGLASS BOAT FINISHER OUT PATIENT THERAPY TREATMENT NOTE 07/05/2015 [id number] Patient Name: Ayden Odom : 1970 Visit # [id number] Date: 07/05/2015 Charges Time In: 1400 Time Out: 1440 Total Time: 40 IN MINUTES: Therapeutic Exercise- 25, Hot Pack/Cold Pack - 15 Subjective Pt continues to experience pain with exercises, but has improved. Pain at onset of treatment: 3/10 Pain at completion of treatment 3/10 Objective Treatment completed per flow sheet - scanned document. AROM - Flexion - 120 degrees in standing. Assessment Patient is completing HEP as recommended Functional status is improved. Progressing per established protocol Plan Continue POC established for goals and signed by physician. Luli Scott, PT Assist [place] [address] Electronically signed by Luli Scott, Seismograph Shooter at 016 2:56 PM FIBERGLASS BOAT FINISHER documented in this encounter Plan of Treatment Not on filedocumented as of this encounter Visit Diagnoses Not on filedocumented in this encounter
--- OUTSIDE RECORDS SUMMARY | 2019-10-21 18:11 | XMS REPORT | Encounter Summary ---
Author Author [facility] Organization [facility] Address Unknown Phone Unavailable Care Team Providers Care Investment Advisor Name Role Phone Robby Rajan DESKTOP SUPPORT CONSULTANT Unavailable Lorraine Hathaway MD PCP Encounter Details Care Team Description Date Type Department Robby Rajan, DESKTOP SUPPORT CONSULTANT [address] [place] [address] 05/06/2015 [facility] Encounter [address] [address] Social History Date Tobacco Use [...] (20 mEq) by Release tablet mouth daily valve fitter. 04/27/2015 omeprazole (PRILOSEC) 20 Take 1 Tablet [...] by hour capsule mouth daily. 01/15/2013 Insulin [place], 1 Package 11 Disposable, (BD INSULIN PEN [...] Before meals, at bedtime, and as needed 04/27/2015 06/25/2015 levothyroxine 50 mcg Take 1 Tablet 30 Tablet 1 tablet (50 mcg) by mouth daily valve fitter. 04/27/2015 05/31/2015 ipratropium-albuterol Take 3 mL by 90 mL 0 (DUONEB) 0.5 mg-3 mg(2.5 inhalation mg base)/3 mL Solution every 4 hours for Nebulization as needed for Shortness of Breath or Wheezing. 04/26/2015 05/31/2015 traMADol (ULTRAM) 50 mg Take 1 Tablet 60 Tablet 0 tablet (50 mg) by mouth every 12 hours as needed for Pain. documented as of this encounter Plan of Treatment Not on filedocumented as of this encounter Procedures Comments Procedure Name Priority Date/Time Associated Diag nosis XR CERVICAL SPINE 4 OR 5 Routine 05/06/2015 Neck pain VIEWS 3:09 PM SOCIAL SCIENCES DEPARTMENT CHAIR documented in this encounter Results * XR CERVICAL SPINE 4 OR 5 VIEWS (05/06/2015 3:09 PM SOCIAL SCIENCES DEPARTMENT CHAIR) Specimen Impressions Performed At IMPRESSION: Mild cervical spine degenerative changes. INTERFACE SYSTEM Electronically Signed By: Mateusz meadows MD, Signed On: 05/06/2015 4:16 PM Narrative Performed At RADIOLOGIC EXAM: Cervical spine series 7 views INTER FACE SYSTEM INDICATION: Neck pain. FINDINGS: Alignment appears anatomic. N o fractures identified. Mild degenerative changes at C4-5, C5-6, and C6-7. Prevertebral soft tissues kenney ear normal. Procedure Note Interface, [facility] Incoming Radiology Results - 05/06/2015 4:20 PM SOCIAL SCIENCES DEPARTMENT CHAIR RADIOLOGIC EXAM: Cervical spine series 7 views INDICATION: Neck pain. FINDINGS: Alignment appears anatomic. No fractures identified. Mild degenerative changes at C4-5, C5-6, and C6-7. Prevertebral soft tissues appear normal. IMPRESSION IMPRESSION: Mild cervical spine degenerative changes. Electronically Signed By: Mateusz Julien MD, Signed On: 05/06/2015 4:16 PM Performing Organization Address City/State/Zipcode Ph one Number INTERFACE SYSTEM INTERFACE SYSTEM Refer to clinic/hospital department documented in this encounter Visit Diagnoses Diagnosis Neck pain Cervicalgia documented in this encounter
--- OUTSIDE RECORDS SUMMARY | 2019-10-21 18:11 | XMS REPORT | Encounter Summary ---
Author Author [facility] Organization [facility] Address Unknown Phone Unavailable Care Team Providers Care Foundry Hand Name Role Phone Robby Rajan DIRECTOR OF SECURITY Unavailable Lorraine Hathaway MD PCP Reason for Visit * Eval and Treat (Routine) Referred By Contact Referred To Contact Status Reason Specialty Diagnoses / Procedures Vincenzo Rodríguez MD [address] [place] [address] [facility] [address] [place] [address] Closed Physical Therapy Diagnoses Contusion of right shoulder, initial encounter Unspecified sprain of unspecified shoulder joint, initial encounter Encounter Details Care Team Description Date Type Department Robby Rajan, DIRECTOR OF SECURITY [address] [place] [address] Jazzy Murphy Physical Therapist [phone] Contusion of right shoulder, initial enc ounter 06/28/2015 [facility] Encounter [facility] [address] [place] [address] Social History Date Tobacco Use [...] 1 tablet (50 MCG) BY MOUTH DAILY STRAP STITCHER. 04/27/2015 pregabalin (LYRICA) 150 Take 1 60 Capsule 5 mg Capsule Capsule (150 mg) by mouth every 12 hours. 04/27/2015 dabigatran etexilate TAKE 1 60 Capsule 5 (PRADAXA) 150 mg Capsule CAPSULE BY MOUTH TWICE DAILY. 04/27/2015 potassium chloride Take 1 Tablet 30 Tablet 5 (K-DUR) 20 mEq Extended (20 mEq) by Release tablet mouth daily activity therapist. 04/27/2015 omeprazole (PRILOSEC) 20 Take 1 Tablet [...] by hour capsule mouth daily. 01/15/2013 Insulin [place], 1 Package 11 Disposable, (BD INSULIN PEN [...] meals, at bedtime, and as needed 06/25/2015 07/02/2015 sulfamethoxazole-trimetho Take 1 Tablet 14 Tablet 0 prim (BACTRIM DS) 800-160 by mouth 2 mg tablet times daily for 7 days. 06/25/2015 12/17/2015 ipratropium-albuterol TAKE 3 ML BY 90 mL 0 (DUONEB) 0.5 mg-3 mg(2.5 INHALATION mg base)/3 mL Solution EVERY 4 HOURS for Nebulization NEEDED FOR SHORTNESS OF BREATH OR WHEEZING. documented as of this encounter Progress Notes * Jazzy Murphy, Physical Therapist - 06/28/2015 2:49 PM DUMP GRADER [facility] [address] [place] [id number] , OUT PATIENT THERAPY PROGRESS NOTE [id number] Patient Name: Ayden Odom : 1970 Visit # 3 Date: 06/28/2015 Diagnosis: contusion/sprain R shoulder Referring Physician: Dr. Coy Charges Time In: 1415 Time Out: 1500 Total Time: 45 IN MINUTES: Therapeutic Exercise- 30, Hot Pack/Cold Pack - 15 Subjective "I fell down the steps again over the weekend and hurt my shoulder again. Its feeling better again today so I don't think I hurt it bad." Pain at onset of treatment: 4/10 Pain at completion of treatment 3/10 Objective Objective: Pt reports pain was 7/10 in her right shoulder after the fall. Used ice and tried to do her home exercises and pain has calmed down. Today was able to do all her ROM exercises without increase in pain. Supine flexion 165, abd 145. Appears to be compliant with her home program. Reports she is able to use her right UE to "do my hair." Pt has not been compliant with keeping her appoin tments, has missed 5/8 appointments. Treatment completed per flow sheet - scanned document. Assessment Patient is completing HEP as recommended, Functional status is improved. Ongoing Screening of Patient: The patient has not been hospitalized recently, The patient has not had any [place] to medications, The patient has not experienced any changes in allergies Short Term Goals to be completed in 2 weeks 1. The patient will be compliant with performance of home exercise program. - ME T 2. The patient will rate pain as 3/10 (50% reduction in pain level). - NOT MET 3. The patients AROM/PROM shoulder abduction/flexion/external rotation/manager of international al rotation will increase to full. - NOT MET Platform Builder Goals to be completed in 4-6 weeks 1. The patient will demonstrate independence with home exercise program. - MET 2. The patient will rate pain as 0-2/10 with functional activities - NOT MET 3. The patient will be able to demonstrate maximum AROM to perform job tasks A DLs housework without shoulder complaints. - NOT MET 4. The patient will obtain 5/5 strength of the shoulder musculature. - NOT MET 5. The patient will be able to sleep without interruption from shoulder pain. - NOT MET 6. The patient will be able to manage her condition via home modalities and exer cises. - NOT MET Plan Continue to progress with exercises working toward remaining goals. Continue POC established for goals and signed by physician. Jazzy Murphy PT GRADER documented in this encounter Plan of Treatment Not on filedocumented as of this encounter Visit Diagnoses Not on filedocumented in this encounter
--- OUTSIDE RECORDS SUMMARY | 2019-10-21 18:11 | XMS REPORT | Encounter Summary ---
Author Author [facility] Organization [facility] Address Unknown Phone Unavailable Care Team Providers Care Grill Associate Name Role Phone Robby Rajan APRN Unavailable Lorraine Hathaway MD PCP Reason for Visit * Reason Comments Medication Refill Encounter Details Care Team Description Date Type Department Maurice Durbin MD [address] [place] [address] 06/25/2015 Refill [facility] [place] [address] [place] [address] Social History Date Tobacco Use [...]
--- OUTSIDE RECORDS SUMMARY | 2019-10-21 18:11 | XMS REPORT | Encounter Summary ---
Author Author [facility] Organization [facility] Address Unknown Phone Unavailable Care Team Providers Care Relief Cook Name Role Phone Robby Rajan APRN Unavailable Lorraine Hathaway MD PCP Reason for Visit * Reason Comments Drug Overdose took twice prescribed amoun t of trazadone. Suicidal comments to family members. Encounter Details Care Team Description Date Type Department Saturnino Canales MD NO ADDRESS ON FILE Medication overdose, undetermined intent , initial encounter (Primary Dx); Acute cystitis with hematuria 06/24/2015 Emergency [facility] - Emergency Department [facility] 06/25/[address] [id number] Social History Date Tobacco Use [...] Signs Reading Time Taken Comments Vital Sign 102/57 06/25/2015 12:30 AM THREADING MACHINE OPERATOR Blood Pressure 78 06/25/2015 12:30 AM THREADING MACHINE OPERATOR Pulse 36.2 C (97.1 F) 06/24/2015 9:48 PM THREADING MACHINE OPERATOR Temperature 19 06/25/2015 12:30 AM THREADING MACHINE OPERATOR Respiratory Rate 94% 06/25/2015 12:30 AM THREADING MACHINE OPERATOR Oxygen Saturation - - Inhaled Oxygen Concentration 115.7 kg (255 lb) 06/24/2015 9:48 PM THREADING MACHINE OPERATOR Weight 157.5 cm (5' 2") 06/24/2015 9:48 PM THREADING MACHINE OPERATOR Height 46.64 06/24/2015 9:48 PM THREADING MACHINE OPERATOR Body Mass Index documented in this encounter Discharge Instructions * Instructions* Saturnino Canales MD - 06/25/2015 Follow up as planned with Mental health. Take Septra DS one twice daily for zafar merchant urinary infection. documented in this encounter Medications at Time [...] (20 mEq) by Release tablet mouth daily early interventionist. 04/27/2015 omeprazole (PRILOSEC) 20 Take 1 Tablet [...] by hour capsule mouth daily. 01/15/2013 Insulin [place], 1 Package 11 Disposable, (BD INSULIN PEN [...] mg tablet times daily for 7 days. documented as of this encounter Procedure Notes * Sukhi Fontana MD - 06/25/2015 10:39 AM THREADING MACHINE OPERATOR Associated Order(s): EKG 12-LEAD [address] [place], [place] [address] Patient Name: JERALD VELAZQUEZ CSN: [id number] : 1970 Provider: Sukhi Whipple M.D. Admitted: 06/24/2015 ELECTROCARDIOGRAM DATE OF SERVICE: 06/24/2015 06/24/2015 at 2219. The rhythm is regular, sinus in origin with a rate of 71 beat s per minute. R wave transition occurs early across the chest. T waves are inver ari in lateral limb leads. Compared with previous tracing dated February 12, electrical axis has shifted to normal currently. T wave changes are not not ed previously. The Q waves in inferior limb leads are less prominent currently. DIAGNOSIS: 1) Sinus rhythm, rate 71 beats per minute. 2) Nonspecific T wave [place]. 3) Counterclockwise rotation of horizontal electrical axis. Dictated by: Sukhi Whipple M.D./MED D: [id number] V: [id number] cc: Saturnino Canales M.D. Lorraine Hathaway M.D. ADING MACHINE OPERATOR documented in this encounter ED Notes * Saturnino Canales MD - 06/24/2015 10:10 PM THREADING MACHINE OPERATOR HISTORY OF PRESENT ILLNESS Jerald Velazquez, a 45 y.o. female presents to the ED with a Chief Complaint o f Drug Overdose Subjective Was mad at her and wanted him to come home from a job. Said she took ext ra trazedone and extra tablets to increase dose to 500 mg and he would see her a t the home. She is under stress about staying away from amphetamines but says she has. She denies suicidal intent, said she was just mad. Her sponsor is here and she mainly want to go home so that it wont be inconvenient for her. Se ems to be honest in her answers to questions. History provided by: The patient Arrived by: Other Arrived from: Home Drug Overdose Associated symptoms: no abdominal pain, no diarrhea, no fatigue, no fever, no na usea, no shortness of breath and no vomiting REVIEW OF SYSTEMS Review of Systems Constitutional: Negative for fever, chills and fatigue. Respiratory: Negative for chest tightness and shortness of breath. Gastrointestinal: Negative for nausea, vomiting, abdominal pain and diarrhea. Psychiatric/Behavioral: Positive for sleep disturbance. Negative for suicidal id eas, confusion and self-injury (now denies suicidal ideation or intentent). The patient is nervous/anxious. PAST MEDICAL HISTORY REVIEWED MEDICAL: Patient [...] mercedes(784.0); Bipolar disorder, unspecified; Seizure disorder; Acute [place] (03/2010); CHF (congestive heart failure); and HIV [...] Medications Current Home Medications ACCU-CHEK ACTIVE CARE [facility] [place] ALBUTEROL HFA 90 MCG INHALER ATORVASTATIN (LIPITOR) 20 MG TABLET DABIGATRAN ETEXILATE (PRADAXA) 150 MG CAPSULE DICLOFENAC SODIUM (VOLTAREN) 50 MG TABLET, DELAYED RELEASE (E.C.) FUROSEMIDE (LASIX) 40 MG TABLET INSULIN NEEDLES, DISPOSABLE, (BD INSULIN PEN NEEDLE UF SHORT) 31 X 5/16 " MIS NDLE IPRATROPIUM-ALBUTEROL (COMBIVENT RESPIMAT) 20-100 MCG/ACTUATION MIST IPRATROPIUM-ALBUTEROL (DUONEB) 0.5 MG-3 MG(2.5 MG BASE)/3 ML SOLUTION FOR NEBUL IZATION LEVOTHYROXINE 50 MCG TABLET LORATADINE (CLARITIN) 10 MG TABLET LURASIDONE (LATUDA) 120 MG TABLET TABLET METFORMIN (GLUCOPHAGE) 1,000 MG TABLET OMEPRAZOLE (PRILOSEC) 20 MG TABLET, DELAYED RELEASE (E.C.) OXYGEN-AIR DELIVERY SYSTEMS [facility] [place] POTASSIUM CHLORIDE (K-DUR) 20 MEQ EXTENDED [...] Encounter Objective PHYSICAL EXAM INITIAL VS BP: 106/76 mmHg (06/24/152147), Heart Rate: 78 bpm (06/24/152147), Resp: 20 (0 06/24/152147), Temp: 97.1 F (36.2 C) (06/24/152147), Temp src: Tympanic (2147), SpO2: 98 % (06/24/152147), Height: 5' 2" (157.5 cm) (06/24/15), Weight: 115.667 kg (255 lb) (06/24/152147), BMI (Calculated): 46.74 (2147) No LMP recorded. Patient has had a hysterectomy. Physical Exam Constitutional: She is oriented to person, place, and time. She appears well-dev eloped and well-nourished. No distress. HENT: Head: Normocephalic and atraumatic. Right Ear: External ear normal. Left Ear: External ear normal. Eyes: Conjunctivae and EOM are normal. Pupils are equal, round, and reactive to light. Neck: Neck supple. No JVD present. Cardiovascular: Normal rate, regular rhythm, normal heart sounds and intact dist al pulses. Pulmonary/Chest: Effort normal and breath sounds normal. No stridor. No respirat ory distress. She has no wheezes. She has no rales. Abdominal: Soft. Bowel sounds are normal. She exhibits no distension and no mass . There is no tenderness. Musculoskeletal: She exhibits no edema. Lymphadenopathy: She has no cervical adenopathy. Neurological: She is alert and oriented to person, place, and time. No cranial n erve deficit. Coordination normal. Skin: Skin is warm and dry. No rash noted. Psychiatric: She has a normal mood and affect. Her behavior is normal. Vitals reviewed. DIAGNOSTICS LAB: Labs this ED Encounter COMPREHENSIVE METABOLIC PANEL - Abnormal CO2 19 (*) ALKALINE PHOSPHATASE 110 (*) SODIUM 138 POTASSIUM 3.7 CHLORIDE 102 CALCIUM 9.1 BUN 15 CREATININE 0.82 GLUCOSE 86 TOTAL PROTEIN 7.4 ALBUMIN 4.0 BILIRUBIN TOTAL 0.4 AST 14 ALT 22 GFR >60 GFR, >60 ANION GAP 17 ACETAMINOPHEN LEVEL - Abnormal ACETAMINOPHEN LEVEL <5 (*) SALICYLATE LEVEL - Abnormal SALICYLATE LEVEL <0.3 (*) URINALYSIS WITH REFLEX CULTURE - Abnormal CLARITY UA Cloudy (*) LEUKOCYTE ESTERASE UA 3+ (*) PROTEIN UA 1+ (*) BILIRUBIN UA 2+ (*) BLOOD UA Trace (*) WBC UA >100 (*) RBC UA 11-25 (*) BACTERIA UA 4+ (*) WBC CLUMPS Present (*) COLOR UA Yellow SPECIFIC GRAVITY UA 1.015 PH UA 6.0 NITRITE UA Negative GLUCOSE UA Negative KETONES UA Negative UROBILINOGEN UA <2.0 EPITHELIAL CELLS, URINE 0-5 COMMENT, URINE Mucous: Many Narrative: Based on results, a urine culture has been reflexed. DRUG SCREEN, URINE - Abnormal AMPHETAMINE QUAL, URINE Presumptive Positive (*) BARBITURATE QUAL, URINE Negative BENZODIAZEPINE QUAL, URINE Negative COCAINE QUAL URINE Negative OPIATE QUAL, URINE Negative CANNABINOIDS QUAL, URINE Negative PCP QUAL, URINE Negative CREATININE, URINE 204.3 Narrative: CUT-OFF CONCENTRATIONS FOR EACH DRUG CLASS DRUG ng/mL Amphetamines 1000 Barbiturates 200 Benzodiazepines 200 Cocaine metabolite 300 Opiates 2000 Marijuana metabolites 50 Phencyclidine 25 CBC WITH DIFFERENTIAL - Normal WBC 9.0 RBC 4.75 HEMOGLOBIN 14.8 HEMATOCRIT 45.4 MCV 95.4 MCH 31.1 MCHC 32.6 RDW 12.9 PLATELETS 188 MPV 8.6 NEUTROPHILS 68 LYMPHOCYTES 26 MONOCYTES 5 EOSINOPHILS 2 BASOPHILS 0 NEUTROPHIL ABSOLUTE 6.06 LYMPHOCYTE ABSOLUTE 2.29 MONOCYTE ABSOLUTE 0.42 EOSINOPHIL ABSOLUTE 0.16 BASOPHILS ABSOLUTE 0.02 URINE CULTURE ETHANOL LEVEL ETHANOL <10.10 ETHANOL % 0.01 RADIOLOGY: No orders to display EKG: PROCEDURES Procedures MEDICAL DECISION MAKING AND PLAN OF CARE REEVALUATION CASE DISCUSSED . New Prescriptions for this Encounter SULFAMETHOXAZOLE-TRIMETHOPRIM (BACTRIM DS) 800-160 MG TABLET Take 1 Tablet b y mouth 2 times daily for 7 days. LAST VS BP: 106/76 mmHg (06/24/15 2148), Heart Rate: 78 bpm (06/24/152147), Resp: 20 (0 06/24/152147), Temp: 97.1 F (36.2 C) (06/24/152147), Temp src: Tympanic (2147), SpO2: 98 % (06/24/152147) CLINICAL IMPRESSION Final diagnoses: [T50.904A] Medication overdose, undetermined intent, initial encounter (Primary) [N30.01] Acute cystitis with hematuria CODING Coding DISPOSITION, EDUCATION AND MEDICATION RECONCILIATION Medications reconciled. See after visit summary for patient education on discha rged patients. Discussed with poison control. Will observe on monitor, the suggest for three mo re hours until 2 AM. Will get usual overdose blood and urine. While Jerald indicated to me she was not using, and she indicated her desire no t to hurt herself. He UDS showed amphetamines, as a result have asked OPHELIA to e valuate as she is not being honest at this point. Discussed with Mental Health and they have worked up a plan of action. Feel she is low risk for additional problems. Ok to go home as planned. Septra DS one twi ce daily for apparent UTI ATTESTATION STATEMENTS ADING MACHINE OPERATOR * Jack Roberts, JUAN DAVID - 06/24/2015 9:54 PM THREADING MACHINE OPERATOR Poison control contacted. ADING MACHINE OPERATOR documented in this encounter Plan of Treatment Not on filedocumented as of this encounter Procedures Comments Procedure Name Priority Date/Time Associated Diag nosis EKG 12-LEAD Stat 06/29/2015 10:54 AM THREADING MACHINE OPERATOR URINALYSIS WITH REFLEX Stat 06/24/2015 CULTURE 10:20 PM THREADING MACHINE OPERATOR DRUG SCREEN, URINE Stat 06/24/2015 10:20 PM THREADING MACHINE OPERATOR URINE CULTURE Stat 06/24/2015 10:20 PM THREADING MACHINE OPERATOR CBC WITH DIFFERENTIAL Stat 06/24/2015 10:17 PM THREADING MACHINE OPERATOR ETHANOL LEVEL Stat 06/24/2015 10:17 PM THREADING MACHINE OPERATOR ACETAMINOPHEN LEVEL Stat 06/24/2015 10:17 PM THREADING MACHINE OPERATOR SALICYLATE LEVEL Stat 06/24/2015 10:17 PM THREADING MACHINE OPERATOR COMPREHENSIVE METABOLIC Stat 06/24/2015 PANEL 10:17 PM THREADING MACHINE OPERATOR documented in this encounter Results * EKG 12-LEAD (06/29/2015 10:54 AM THREADING MACHINE OPERATOR) Narrative Performed At This result has an attachment that is n ot available. Transcriptions Sukhi Whipple MD - 06/25/2015 10:39 AM THREADING MACHINE OPERATOR [address] [place] [address] Patient Name: JERALD VELAZQUEZ CSN: [id number] : 1970 Provider: Sukhi Whipple M.D. Admitted: 06/24/2015 ELECTROCARDIOGRAM DATE OF SERVICE: 06/24/2015 06/24/2015 at 2219. The rhythm is regular , sinus in origin with a rate of 71 beats per minute. R wave transition occurs early across the chest. T waves are inverted in lateral limb leads. Compared with previous tracing dated February 12 2015, electrical axis has shifted to normal currently. T wave changes are not noted previously. The Q waves in inferior limb leads are less prominent currently. DIAGNOSIS: 1) Sinus rhythm, rate 71 beats per minute. 2) Nonspecific T wave changes. 3) Counterclockwise rotation of horizontal electrical axis. Dictated by: Sukhi Whipple M.D./MEDQ D: [id number] V: [id number] cc: Saturnino Canales M.D. Lorraine Hathaway M.D. * URINE CULTURE (06/24/2015 10:20 PM THREADING MACHINE OPERATOR) CULTURE >= 100,000 cfu/mL Serratia [facility] marcescens (A) [facility] - [place] Specimen Urine - Urine specimen obtained by clean catch procedure (specimen) Antibiotic Method Susceptibility Organism CEFAZOLIN DOMENICA MCG/ML >=64 mcg/mL: Resistant Serratia marcescens CEFTRIAXONE DOMENICA MCG/ML <=1 mcg/mL: Susceptible Serratia marcescens CIPROFLOXACIN DOMENICA MCG/ML <=0.25 mcg/mL: Susceptible Serratia marcescens ERTAPENEM DOMENICA MCG/ML <=0.5 mcg/mL: Susceptible Serratia marcescens GENTAMICIN DOMENICA MCG/ML <=1 mcg/mL: Susceptible Serratia marcescens IMIPENEM DOMENICA MCG/ML 0.5 mcg/mL: Susceptible Serratia marcescens LEVOFLOXACIN DOMENICA MCG/ML 1 mcg/mL: Susceptible Serratia marcescens NITROFURANTOIN DOMENICA MCG/ML 256 mcg/mL: Resistant Serratia marcescens TRIMETHOPRIM/ SULFAMETHOXAZOLE DOMENICA MCG/ML <=20 mcg/mL: Susceptible Serratia marcescens CEFTAZIDIME DOMENICA MCG/ML <=1 mcg/mL: Susceptible Serratia marcescens CEFOXITIN DOMENICA MCG/ML >=64 mcg/mL: Resistant Serratia marcescens Performing Organization Address City/[facility] Ph one Number [facility] CLIA# [id number] [place] [address] - AL[place]SA BRITTON [address] [place] [address] * DRUG SCREEN, URINE (06/24/2015 10:20 PM THREADING MACHINE OPERATOR) [facility] AMPHETAMINE Presumptive Positive (A) Negative [facility] QUAL, URINE LABORATORY SERVICES - [place]SA BRITTON BARBITURATE Negative Negative [facility] QUAL, URINE LABORATORY SERVICES - [place]SA BRITTON BENZODIAZEPINE Negative Negative [facility] QUAL, URINE LAB[facility] - AL[place]SA BRITTON COCAINE QUAL Negative Negative [facility] URINE [facility] - [place]SA BRITTON OPIATE QUAL, Negative Negative [facility] URINE [facility] - AL[place]SA BRITTON CANNABINOIDS Negative Negative [facility] QUAL, URINE LAB[facility] - [place]SA BRITTON PCP QUAL, URINE Negative Negative [facility] [place] CREATININE, 204.3 29.0 - 226.0 mg/dL [facility] URINE Comment: LABORATORY Reference Range varies with SERVICES - [facility] fluid intake and diet. [place] Specimen Urine Narrative Performed At CUT-OFF CONCENTRATIONS FOR EACH DRUG CLASS [facility] DRUG ng/mL [facility] - [place] Amphetamines 1000 Barbiturates 200 Benzodiazepines 200 Cocaine metabolite 300 Opiates 2000 Marijuana metabolites 50 Phencyclidine 25 Performing Organization Address City/[facility] Ph one Number [facility] CLIA# [id number] [place] [address] - ALYSA BRITTON [address] [place] [address] * URINALYSIS WITH REFLEX CULTURE (06/24/2015 10:20 PM THREADING MACHINE OPERATOR) COLOR UA Yellow Pale to dark yellow [facility] - [place] BRIT[place] CLARITY UA Cloudy (A) Clear [facility] [place] BR[place] SPECIFIC 1.015 1.003 - 1.035 [facility] GRAVITY UA LAB[facility]ATORY SERVICES - AL[place]SA BRITTON PH UA 6.0 5.0 - 8.0 [facility] - AL[place]SA BRITTON LEUKOCYTE 3+ (A) Negative [facility] ESTERASE UA LAB[facility] - ALYSA BRITTON NITRITE UA Negative Negative [facility] - [place]SA BRITTON PROTEIN UA 1+ (A) Negative [facility] - [place] BRITTON GLUCOSE UA Negative Negative [facility] - [place] BRITTON KETONES UA Negative Negative [facility] - [place] BRIT[place] UROBILINOGEN UA <2.0 <2.0 mg/dL [facility] - [place] BRITTON BILIRUBIN UA 2+ (A) Negative [facility] - AL[place]SA BRITTON BLOOD UA Trace (A) Negative [facility] - [facility] REBA WBC UA >100 (A) 0 - 2 /hpf [facility] - [place] BRITTON RBC UA 11-25 (A) 0 - 2 /hpf [facility] - AL[place]SA BRITTON BACTERIA UA 4+ (A) Negative /hpf [facility] - ALYSA BRITTON EPITHELIAL 0-5 0 - 5 /hpf [facility] CELLS, URINE LAB[facility]ATORY SERVICES - [facility] REBA WBC CLUMPS Present (A)Comment: 5-10/lpf Absent [facility] LAB[facility]ORY SERVICES - ALYSA BRITTON COMMENT, URINE Mucous: Many [facility] - [place]SA BRITTON Specimen Urine Narrative Performed At Based on results, a urine culture has been reflexed. [facility] - ALYSA BRITTON Performing Organization Address City/[facility] Ph one Number [facility] CLIA# [id number] [place] 01 - ALYSA BRITTON [address] [place] [address] * SALICYLATE LEVEL (06/24/2015 10:17 PM THREADING MACHINE OPERATOR) SALICYLATE <0.3 (L) 0.3 - 10.0 mg/dL [facility] LEVEL LABORATORY SERVICES - ALYSA BRITTON Specimen Blood Performing Organization Address City/[facility] one Number [facility] CLIA# [id number] [place] RIOJ[place] [address] - ALYSA BRITTON [address] [place] [address] * ACETAMINOPHEN LEVEL (06/24/2015 10:17 PM THREADING MACHINE OPERATOR) ACETAMINOPHEN <5 (L) 10 - 30 ug/mL [facility] LEVEL [facility] - ALYSA BRITTON Specimen Blood Performing Organization Address [facility] one [facility] LABORATORY SERVICES CLIA# [id number] [place] RIO[place] [address] - ALYSA BRITTON [address] [place] [address] * ETHANOL LEVEL (06/24/2015 10:17 PM THREADING MACHINE OPERATOR) ETHANOL <10.10 <=10.10 mg/dL [facility] - [place]SA BRITTON ETHANOL % 0.01 %w/v [facility] - [place] Specimen Blood Performing Organization Address [facility] one [facility] LABORATORY SERVICES CLIA# [id number] [place]E RIO[place] [address] - ALYSA BRITTON [address] [place] [address] * COMPREHENSIVE METABOLIC PANEL (06/24/2015 10:17 PM THREADING MACHINE OPERATOR) SODIUM 138 136 - 145 mmol/L [facility] - [place]SA BRITTON POTASSIUM 3.7 3.5 - 5.1 mmol/L [facility] - [place] BR[place] CHLORIDE 102 98 - 107 mmol/L [facility] - [place] BR[place] CO2 19 (L) 22 - 29 mmol/L [facility] - [place] BRIT[place] CALCIUM 9.1 8.6 - 10.0 mg/dL [facility] - [place] BR[place] BUN 15 6 - 20 mg/dL [facility] - [place] BR[place] CREATININE 0.82 0.51 - 0.95 mg/dL [facility] - [place] BR[place] GLUCOSE 86 70 - 100 mg/dL [facility] - [place] BR[place] TOTAL PROTEIN 7.4 6.6 - 8.7 g/dL [facility] - [place] BR[place] ALBUMIN 4.0 3.5 - 5.2 g/dL [facility] - [place] BR[place] BILIRUBIN TOTAL 0.4 <=1.2 mg/dL [facility] - [place] BR[place] ALKALINE 110 (H) 35 - 104 U/L [facility] PHOSPHATASE [facility] - [place] BR[place]TON AST 14 10 - 35 U/L [facility] - [place] BR[place] ALT 22 10 - 35 U/L [facility] - [place] BRIT[place] GFR >60 >=60 mL/min/1.73 sq [facility] Comment: meter LABORATORY eGFR has not been validated [facility] for use in the elderly (> 70 REBA years of age), women, patients with serious co-morbid conditions, or persons with extremes of body size or muscle mass and should also be interpreted with caution in patients with acute kidney failure, dialysis dependent patients, patients reporting exceptional dietary intake (e.g. vegetarian diet, high protein diets, creatine supplementation), and patients with severe liver disease. Based on National Kidney Disease Education Program If patient is , please refer to the GFR result. GFR, >60 >=60 mL/min/1.73 sq [facility] - [place] BR[place] ANION GAP 17 4 - 20 mmol/L [facility] - [place] BRITTON Specimen Blood Performing Organization Address City/State/Zipcode Ph one Number [facility] CLIA# [id number] [place] [address] - AL[place]SA BR[place]TON [address] [facility] * CBC WITH DIFFERENTIAL (06/24/2015 10:17 PM THREADING MACHINE OPERATOR) WBC 9.0 2.9 - 11.0 K/uL [facility] - [place] BR[place] RBC 4.75 3.77 - 5.57 M/uL [facility] - [place] BR[place] HEMOGLOBIN 14.8 11.9 - 16.3 g/dL [facility] - [place] BR[place] HEMATOCRIT 45.4 34.4 - 51.6 % [facility] - [place] BR[place] MCV 95.4 82.4 - 103.2 fL [facility] - [place]SA BRITTON MCH 31.1 26.2 - 32.6 pg [facility] - [place]SA BRIT[place] MCHC 32.6 30.2 - 35.0 g/dL [facility] - [place]SA BRIT[place] RDW 12.9 11.1 - 14.5 % [facility] - ALYSA BRITTON PLATELETS 188 137 - 410 K/uL [facility] - [place] BR[place] MPV 8.6 7.4 - 11.9 fL [facility] - [place] BR[place] NEUTROPHILS 68 43 - 73 % [facility] - [place] BRIT[place] LYMPHOCYTES 26 19 - 47 % [facility] - [place]YSA BRITTON MONOCYTES 5 3 - 9 % [facility] - [place] BR[place] EOSINOPHILS 2 0 - 6 % [facility] - [place] BR[place] BASOPHILS 0 0 - 1 % [facility] - [place] NEUTROPHIL 6.06 1.30 - 7.60 K/uL [facility] ABSOLUTE [facility] - [place] BRITTON LYMPHOCYTE 2.29 0.60 - 4.90 K/uL [facility] ABSOLUTE [facility] - [place] BR[place] MONOCYTE 0.42 0.10 - 0.90 K/uL [facility] ABSOLUTE [facility] - [place] BR[place] EOSINOPHIL 0.16 0.00 - 0.40 K/uL [facility] ABSOLUTE [facility] - AL[place]SA BRITTON BASOPHILS 0.02 0.00 - 0.10 K/uL [facility] ABSOLUTE [facility] - [place]SA BRITTON Specimen Blood Performing Organization Address City/State/Zipcode Ph one Number [facility] CLIA# [id number] [place] [address] - AL[place] BRITTON [address] [facility] documented in this encounter Visit Diagnoses Diagnosis Medication overdose, undetermined inten t, initial encounter - Primary Acute cystitis with hematuria Acute cystitis documented in this encounter
--- OUTSIDE RECORDS SUMMARY | 2019-10-21 18:11 | XMS REPORT | Encounter Summary ---
Author Author [facility] Organization [facility] Address Unknown Phone Unavailable Care Team Providers Care Towboat Captain Name Role Phone Robby Rajan APRN Unavailable Lorraine Hathaway MD PCP Encounter Details Care Team Description Date Type Department Lorraine Hathaway MD [address] [place] [address] 04/27/2015 [facility] Imaging Se rvices Encounter [address] [address] Social History Date Tobacco Use [...] (20 mEq) by Release tablet mouth daily hand mica plate layer. 04/27/2015 omeprazole (PRILOSEC) 20 Take 1 Tablet [...] by hour capsule mouth daily. 01/15/2013 Insulin [place], 1 Package 11 Disposable, (BD INSULIN PEN [...] 1 tablet (50 mcg) by mouth daily hand mica plate layer. 04/27/2015 05/31/2015 ipratropium-albuterol Take 3 mL by [...] Name Priority Date/Time Associated Diag nosis XR SHOULDER 2+ VW RIGHT Routine 04/27/2015 Right shoulder injury, 12:10 PM LINEN ROOM CUSTODIAN initial encounter documented in this encounter Results * XR SHOULDER 2+ VW RIGHT (04/27/2015 12:10 PM LINEN ROOM CUSTODIAN) Specimen Impressions Performed At IMPRESSION: Subacromial bone spur. INTERFACE SYSTEM Electronically Signed By: Jaron armenta MD, Signed On: 04/27/2015 12:26 PM Narrative Performed At STUDY: Right shoulder radiograph. INTERFACE SYSTEM INDICATION: Right shoulder pain after i njury, initial encounter. COMPARISON: 25 June 2010. TECHNIQUE: 3 views. FINDINGS: Undersurface bone spur from the acromio n is unchanged from the prior study, causing some narrowing of the subacromial space. No fracture, disloca tion, or separation. Pulmonary calix intact. Procedure Note [facility] Results - 04/27/2015 12:30 PM LINEN ROOM CUSTODIAN STUDY: Right shoulder radiograph. INDICATION: Right shoulder pain after injury, initial encounter. COMPARISON: 25 June 2010. TECHNIQUE: 3 views. FINDINGS: Undersurface bone spur from the acromion is unchanged from the prior study, causing some narrowing of the subacromial space. No fracture, dislocation, or separation. Pulmonary calix intact. IMPRESSION IMPRESSION: Subacromial bone spur. Electronically Signed By: Jaron Rasmussen MD, Signed On: 04/27/2015 12:26 PM Performing Organization Address City/State/Zipcode Ph one Number INTERFACE SYSTEM INTERFACE SYSTEM Refer to clinic/hospital department documented in this encounter Visit Diagnoses Diagnosis Right shoulder injury, initial encounte r documented in this encounter
--- OUTSIDE RECORDS SUMMARY | 2019-10-21 18:11 | XMS REPORT | Encounter Summary ---
Author Author [facility] Organization [facility] Address Unknown Phone Unavailable Care Team Providers Care Orthoptist Name Role Phone Robby Rajan APRN Unavailable Lorraine Hathaway MD PCP Reason for Visit * Reason Comments Medication Refill Encounter Details Care Team Description Date Type Department Lorraine Hathaway MD [address] [place] [address] Poor appetite (Primary Dx) 04/27/[address] [facility] Primar y Care [address] [address] Social History Date Tobacco Use [...] as of this encounter Visit Diagnoses Diagnosis Poor appetite - Primary Anorexia documented in this encounter
--- OUTSIDE RECORDS SUMMARY | 2019-10-21 18:11 | XMS REPORT | Encounter Summary ---
Author Author [facility] Organization [facility] Address Unknown Phone Unavailable Care Team Providers Care Medical Imaging Technician Name Role Phone Robby Raajn APRN Unavailable Lorraine Hathaway MD PCP Encounter Details Care Team Description Date Type Department Lorraine Hathaway MD [address] [place] [address] 04/28/2015 Abstract [facility] Primar y Care [place] [address] [place] [address] Social History Date Tobacco Use [...]
--- OUTSIDE RECORDS SUMMARY | 2019-10-21 18:11 | XMS REPORT | Encounter Summary ---
Author Author [facility] Organization [facility] Address Unknown Phone Unavailable Care Team Providers Care Die Mounter Name Role Phone Robby Rajan SHUTTLECOCK FEATHER TRIMMER Unavailable Lorraine Hathaway MD PCP Reason for Visit * Eval and Treat (Routine) Referred By Contact Referred To Contact Status Reason Specialty Diagnoses / Procedures Vincenzo Rodríguez MD [address] [place] [address] [facility] Physical Therapy [address] [place] [address] Closed Physical Therapy Diagnoses Contusion of right shoulder, initial encounter Unspecified sprain of unspecified shoulder joint, initial encounter Encounter Details Care Team Description Date Type Department Robby Rajan, SHUTTLECOCK FEATHER TRIMMER [address] [place] [address] Jazzy Murphy Physical Therapist [phone] Contusion of right shoulder, initial enc ounter 06/18/2015 [facility] F ort Encounter [facility] [address] [place] [address] Social History Date Tobacco Use [...] (20 mEq) by Release tablet mouth daily safety person. 04/27/2015 omeprazole (PRILOSEC) 20 Take 1 Tablet [...] by hour capsule mouth daily. 01/15/2013 Insulin [place], 1 Package 11 Disposable, (BD INSULIN PEN [...] 1 tablet (50 mcg) by mouth daily safety person. documented as of this encounter Progress Notes * Jazzy Murphy, Physical Therapist - 06/18/2015 3:30 PM X RAY TECHNOLOGIST OUT PATIENT THERAPY TREATMENT NOTE 06/18/2015 [id number] Patient Name: Ayden Odom : 1970 Visit # 2 Date: 06/18/2015 Charges Time In: 1455 Time Out: 1535 Total Time: 40 IN MINUTES: Therapeutic Exercise- 25, Hot Pack/Cold Pack - 15 Subjective "I have been doing those exercises the best I can, I have been pretty sick." Pain at onset of treatment: 3/10 Pain at completion of treatment 5/10 Objective Treatment completed per flow sheet - scanned document. Assessment Patient is completing HEP as recommended Functional status is improved. Plan Continue POC established for goals and signed by physician. Jazzy Murphy, PT Contact Information [facility] Services [address] [place] [phone] X RAY TECHNOLOGIST documented in this encounter Plan of Treatment Not on filedocumented as of this encounter Visit Diagnoses Not on filedocumented in this encounter
--- OUTSIDE RECORDS SUMMARY | 2019-10-21 18:11 | XMS REPORT | Encounter Summary ---
Author Author [facility] Organization [facility] Address Unknown Phone Unavailable Care Team Providers Care Epilepsy Physician Name Role Phone Robby Rajan APRN Unavailable Lorraine Hathaway MD PCP Encounter Details Care Team Description Date Type Department Lorraine Hathaway MD [address] [place] [address] 04/30/2015 Abstract [facility] Primar y Care [place] [address] [place] [address] Social History Date Tobacco Use [...]
--- OUTSIDE RECORDS SUMMARY | 2019-10-21 18:11 | XMS REPORT | Encounter Summary ---
Author Author [facility] Organization [facility] Address Unknown Phone Unavailable Care Team Providers Care Nuclear Equipment Research Engineer Name Role Phone Robby Rajan APRN Unavailable Lorraine Hathaway MD PCP Reason for Visit * Reason Comments Medication Refill Encounter Details Care Team Description Date Type Department Lorraine Hathaway MD [address] [place] [address] 05/31/2015 Refill [facility] Primar y Care [address] [address] Social History Date Tobacco Use [...]
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
--- OUTSIDE RECORDS SUMMARY | 2019-10-21 18:12 | XMS REPORT | Encounter Summary ---
Author Author [facility] Organization [facility] Address Unknown Phone Unavailable Care Team Providers Care Power Transformer Repair Supervisor Name Role Phone Robby Rajan CONSTANTIN Unavailable Lorraine Hathaway MD PCP Reason for Visit * Reason Comments Medication Refill wants to be restarted on "s tomach medicine" Shortness of Breath X 3 days Nausea X 3 days Cough X 3 days Encounter Details Care Team Description Date Type Department Lorraine Hathaway MD [facility] [place] [address] HIV (human immunodeficiency virus infect ion) (Primary Dx); Fibromyalgia; Poor appetite 01/13/[address] [facility] Primar y Care [address] [address] Social History Date Tobacco Use Types Packs/Day Years Used Current Every Day Smoker Cigarettes 1 27 Smokeless Tobacco: Never Used Comments: STARTED SMOKING AGE 11 Drinks/Week oz/Week Comments Alcohol Use No Sex Assigned at Date Recorded Not on file Industry Job Start Date Occupation Not on file Not on file Not on file Travel End Travel History Travel Start No recent travel history available. documented as of this encounter Last Filed Vital Signs Reading Time Taken Comments Vital Sign 92/60 01/13/2015 1:26 PM CDT Blood Pressure 93 01/13/2015 1:26 PM CDT Pulse 37.6 C (99.7 F) 01/13/2015 1:26 PM CDT Temperature - - Respiratory Rate 98% 01/13/2015 1:26 PM CDT Oxygen Saturation - - Inhaled Oxygen Concentration 120.2 kg (265 lb) 01/13/2015 1:26 PM CDT Weight 158.8 cm (5' 2.5") 01/13/2015 1:26 PM CDT Height 47.7 01/13/2015 1:26 PM CDT Body Mass Index documented in this encounter Progress Notes * Lorraine Hathaway MD - 01/13/2015 1:52 PM CDT HISTORY OF PRESENT ILLNESS Ayden Odom, a 44 y.o. female. Subjective HPI HIV- Saw Dr. Campbell and was started on HIV medication. She has since ran out. In [place] [facility]. Needs medication refill of omeprazole. REVIEW OF SYSTEMS Review of Systems Constitutional: Negative for fever, chills and unexpected weight change. Gastrointestinal: Positive for nausea. Negative for blood in stool. Objective PHYSICAL EXAM BP 92/60 mmHg | Pulse 93 | Temp(Src) 99.7 F (37.6 C) (Tympanic) | Ht 5' 2.5" (1.588 m) | Wt 265 lb (120.203 kg) | BMI 47.67 kg/m2 | SpO2 98% Physical Exam Constitutional: She is oriented to person, place, and time. She appears well-dev eloped and well-nourished. No distress. HENT: Head: Normocephalic and atraumatic. Neurological: She is alert and oriented to person, place, and time. Psychiatric: She has a normal mood and affect. Her behavior is normal. Judgment and thought content normal. Assessment ASSESSMENT and PLAN: ICD-9-CM ICD-10-CM 1. HIV (human immunodeficiency virus infection) V08 Z21 2. Fibromyalgia 729.1 M79.7 3. Poor appetite 783.0 R63.0 omeprazole (PRILOSEC) 20 mg Tablet, Delayed Release (E.C.) I did talk to patient about the importance of not running out of her HIV medicat ion. I will refill medications. She needs to call clinic to get a refill as we ll as request records of her labwork and visits there. She is to get labwork do ne tomorrow when she is fasting. documented in this encounter Plan of Treatment Not on filedocumented as of this encounter Visit Diagnoses Diagnosis HIV (human immunodeficiency virus infec tion) - Primary Asymptomatic human immunodeficiency vir us (HIV) infection status Fibromyalgia Mylagia and myositis, unspecified Poor appetite Anorexia documented in this encounter
--- OUTSIDE RECORDS SUMMARY | 2019-10-21 18:12 | XMS REPORT | Encounter Summary ---
Author Author [facility] Organization [facility] Address Unknown Phone Unavailable Care Team Providers Care Grab Hooker Name Role Phone Robby Rajan APRN Unavailable Lorraine Hathaway MD PCP Reason for Visit * Reason Comments Suicidal pt has a plan to take her medication - states I can't deal with it anymore - pt states she has been homeless and i s not receiving her check Encounter Details Care Team Description Date Type Department Clifford Bruce MD [address] [address] Suicidal thoughts (Primary Dx); Acute cystitis without hematuria; COPD (chronic obstructive pulmonary disease) 02/12/2015 Emergency [facility] Emergency Department [address] [address] Social History Date Tobacco Use [...] Signs Reading Time Taken Comments Vital Sign 153/83 02/12/2015 7:19 PM CDT Blood Pressure - - Pulse 36.7 C (98 F) 02/12/2015 2:56 PM CDT Temperature 16 02/12/2015 7:19 PM CDT Respiratory Rate 98% 02/12/2015 7:19 PM CDT Oxygen Saturation - - Inhaled Oxygen Concentration 120.2 kg (265 lb) 02/12/2015 2:56 PM CDT Weight 157.5 cm (5' 2") 02/12/2015 2:56 PM CDT Height 48.47 02/12/2015 2:56 PM CDT Body Mass Index documented in this encounter Discharge Instructions * Instructions* Sarita Pearl, RN - 02/12/2015 Do not harm yourself Fill prescription for Bactrim - antibiotic - take as directed Keep scheduled appointments and agreement with [facility] Follow up with your primary care physician Return to the ER as needed * Attachments The following attachments cannot be sent through Care Everywhere.* UTI (URINARY TRACT INFECTION): FEMALE ([place]) documented in this encounter Medications at Time of Discharge Start Date End Date Medication Sig Dispensed Refills 12/29/2014 traZODone (DESYREL) 100 Take 3 Tabs [...] by hour capsule mouth daily. 01/15/2013 Insulin [place], 1 Package 11 Disposable, (BD INSULIN PEN [...] Before meals, at bedtime, and as needed 02/12/2015 02/19/2015 sulfamethoxazole-trimetho Take 1 Tablet 14 Tablet 0 prim (BACTRIM DS) 800-160 by mouth 2 mg tablet times daily for 7 days. 01/20/2015 04/27/2015 loratadine (CLARITIN) 10 Take 1 Tab 30 Tab 5 mg tablet (10 mg) by mouth daily. 01/13/2015 04/26/2015 pregabalin (LYRICA) 150 Take 1 Cap 60 Cap 5 mg Capsule (150 mg) by mouth every 12 hours. 01/13/2015 04/27/2015 omeprazole (PRILOSEC) 20 Take 1 Tab 30 Tab 11 mg Tablet, Delayed (20 mg) by Release mouth daily (E.C.)Indications: Poor before appetite breakfast. 01/12/2015 04/27/2015 PRADAXA 150 mg Capsule TAKE 1 60 Cap 5 CAPSULE BY MOUTH TWICE DAILY 12/29/2014 04/27/2015 potassium chloride Take 1 Tab 30 Tab 5 (K-DUR) 20 mEq Extended (20 mEq) by Release tablet mouth daily kaiako kura kaupapa maori. 12/29/2014 04/27/2015 metFORMIN (GLUCOPHAGE) Take 1 Tab 30 Tab 5 1,000 mg tablet (1,000 mg) by mouth daily. 12/29/2014 04/27/2015 atorvastatin (LIPITOR) 20 Take 2 Tabs 90 Tab 1 mg tablet (40 mg) by mouth Daily LATE TAKE 1 TABLET BY MOUTH DAILY AT BEDTIME. 12/29/2014 04/27/2015 albuterol sulfate (PROAIR Take 2 Puffs 8.5 Gram 5 HFA) 90 mcg/Actuation by inhalation inhaler every 6 hours as needed for Wheezing. 12/29/2014 04/27/2015 furosemide (LASIX) 40 mg TAKE 1 TABLET 60 Tab 5 tablet BY MOUTH TWICE DAILY. 12/29/2014 03/09/2015 ipratropium-albuterol INHALE 1 PUFF 4 Gram 5 (COMBIVENT RESPIMAT) BY MOUTH FOUR 20-100 mcg/actuation Mist TIMES DAILY. 12/28/2014 04/27/2015 SUMAtriptan (IMITREX) 100 TAKE 1 TABLET 8 Tab 5 mg tablet BY MOUTH DIRECTED (MAY REPEAT IN 2 HOURS, MAX OF 2 TABLETS IN 24 HOURS). 08/06/2014 03/11/2015 ipratropium-albuterol Take 3 mL by 90 mL 0 (DUONEB) 0.5 mg-3 mg(2.5 inhalation mg base)/3 mL Solution every 4 hours for Nebulization as needed for Shortness of Breath or Wheezing. documented as of this encounter Procedure Notes * Sukhi Fontana MD - 02/15/2015 9:49 AM CDT Associated Order(s): EKG 12-LEAD [address] [place], [place] [address] Patient Name: JERALD VELAZQUEZ CSN: [id number] : 1970 Provider: Sukhi Whipple M.D. Admitted: 02/12/2015 ELECTROCARDIOGRAM DATE OF SERVICE: 02/12/2015 02/12/2015 at 1516. The rhythm is irregular, sinus in origin with a rate of 75 be ats per minute. Electrical axis is leftward. Abnormal R wave progression is seen across the chest with loss of R waves from V2 to V3 and small Q waves in V3. Q waves are also noted in inferior limb leads III and aVF. Compared with previous tracing dated August 07 2014, R waves are better seen in V3 previously. Electric al axis has shifted leftward currently. DIAGNOSIS: 1) Sinus rhythm, rate 75 beat s per minute. 2) Leftward axis. 3) Borderline inferior limb lead Q waves, probab ly within normal limits. 4) Abnormal R wave progression, anteroseptal chest lead s, possibly due to lead placement. Anteroseptal wall myocardial infarct of undet ermined age cannot be completely ruled out. Dictated by: Sukhi Whipple M.D./DARIANAQ D: [id number] V: [id number] cc: Lorraine Hathaway M.D. documented in this encounter ED Notes * Sarita Pearl RN - 02/12/2015 7:05 PM CDT Pt out to smoke w staff. * Ruel Gray RN - 02/12/2015 6:[address] [facility] screener present with pt. * Sarita Pearl RN - 02/12/2015 4:50 PM CDT Pt has been given sandwich and drink. * Sarita Pearl RN - 02/12/2015 4:25 PM CDT [facility]att from [facility] for screening returned call. She will come sc kristina pt but is coming from [place], [place] and will not leave before 5p. * Sarita Pearl RN - 02/12/2015 4:[address] [facility] Screener contacted at this time. * Clifford Bruce MD - 02/12/2015 3:24 PM CDT HISTORY OF PRESENT ILLNESS Jerald Velazquez, a 44 y.o. female presents to the ED with a Chief Complaint o f Suicidal Subjective HPI Comments: Pt brought to ED by family preservation caseworker for evaluation prior to admission for suicidal behavior. Has a hx of COPD and CHF. Has been on O2 in the past but not lately as she has n ot had a place to live. Has a cough. No chest pain, SOB or swelling of the feet or abdomen. Continues to smoke History provided by: The patient Arrived by: Private vehicle (Brought by family preservation caseworker) Arrived from: Home Suicidal Presenting symptoms: suicidal thoughts Associated symptoms: no abdominal pain, no chest pain and no headaches REVIEW OF SYSTEMS Review of Systems Constitutional: Negative for fever and chills. HENT: Positive for congestion and postnasal drip. Negative for sinus pressure. Eyes: Negative for visual disturbance. Respiratory: Positive for cough and wheezing. Cardiovascular: Negative for chest pain, palpitations and leg swelling. Gastrointestinal: Negative for nausea, vomiting and abdominal pain. Genitourinary: Negative for dysuria. Has a chronic suprapubic catheter Musculoskeletal: Negative for myalgias and arthralgias. Neurological: Negative for light-headedness and headaches. Hematological: Negative for adenopathy. Psychiatric/Behavioral: Positive for suicidal ideas. PAST MEDICAL HISTORY REVIEWED MEDICAL: Patient has [...] mercedes(784.0); Bipolar disorder, unspecified; Seizure disorder; Acute [place] (03/2010); CHF (congestive heart failure); and HIV [...] ine use; HIV (human immunodeficiency virus infection); and Fibromyalgia on her p roblem list. ALLERGIES Aloe vera; Doxycycline; Tape; Xanax; and Zofran HOME MEDICATIONS Discharge Medication List as of 02/12/2015 7:40 PM START taking these medications Details sulfamethoxazole-trimethoprim (BACTRIM DS) 800-160 mg tablet Take 1 Tablet by [facility] 2 times daily for 7 days., Disp-14 Tablet, R-None CONTINUE these medications which have NOT CHANGED Details loratadine (CLARITIN) 10 mg tablet Take 1 Tab (10 mg) by mouth daily., Disp-30 T ab, R-5 pregabalin (LYRICA) 150 mg Capsule Take 1 Cap (150 mg) by mouth every 12 hours., Disp-60 Cap, R-5 omeprazole (PRILOSEC) 20 mg Tablet, Delayed Release (E.C.) Take 1 Tab (20 mg) by mouth daily before breakfast., Disp-30 Tab, R-11 PRADAXA 150 mg Capsule TAKE 1 CAPSULE BY MOUTH TWICE DAILY, Disp-60 Cap, R-5 traZODone (DESYREL) 100 mg tablet Take 3 Tabs (300 mg) by mouth daily at bedtime 3 tabs., Disp-90 Tab, R-5 topiramate (TOPAMAX) 100 mg tablet Take 1 Tab (100 mg) by mouth see administrati on instructions 100mg am, noon, & evening; 200mg at bedtime., Disp-150 Tab, R-5 potassium chloride (K-DUR) 20 mEq Extended Release tablet Take 1 Tab (20 mEq) by mouth daily kaiako kura ka[place] maori., Disp-30 Tab, R-5 metFORMIN (GLUCOPHAGE) 1,000 mg tablet Take 1 Tab (1,000 mg) by mouth daily., Di sp-30 Tab, R-5 atorvastatin (LIPITOR) 20 mg tablet Take 2 Tabs (40 mg) by mouth Daily LATE TAKE 1 TABLET BY MOUTH DAILY AT BEDTIME., Disp-90 Tab, R-1 albuterol sulfate (PROAIR HFA) 90 mcg/Actuation inhaler Take 2 Puffs by inhalati on every 6 hours as needed for Wheezing., Disp-8.5 Gram, R-5 furosemide (LASIX) 40 mg tablet TAKE 1 TABLET BY MOUTH TWICE DAILY., Disp-60 Tab , R-5 lurasidone (LATUDA) 120 mg Tablet tablet Take 1 Tab (120 mg) by mouth daily With food., Disp-30 Tab, R-5 !! venlafaxine (EFFEXOR XR) 150 mg Extended Release 24 hour capsule Take 1 Cap ( 150 mg) by mouth daily Takes with 75mg., Disp-30 Cap, R-5 !! venlafaxine (EFFEXOR XR) 75 mg Extended Release 24 hour capsule Take 1 Cap (7 5 mg) by mouth daily., Disp-30 Cap, R-5 ipratropium-albuterol (COMBIVENT RESPIMAT) 20-100 mcg/actuation Mist INHALE 1 PU FF BY MOUTH FOUR TIMES DAILY., Disp-4 Gram, R-5 SUMAtriptan (IMITREX) 100 mg tablet TAKE 1 TABLET BY MOUTH DIRECTED (MAY REPE AT IN 2 HOURS, MAX OF 2 TABLETS IN 24 HOURS)., Disp-8 Tab, R-5 traMADol (ULTRAM) 50 mg tablet Take 1 Tab (50 mg) by mouth every 6 hours as need ed for Pain., Disp-20 Tab, R-0 ipratropium-albuterol (DUONEB) 0.5 mg-3 mg(2.5 mg base)/3 mL Solution for Nebuli zation Take 3 mL by inhalation every 4 hours as needed for Shortness of Breath o r Wheezing., Disp-90 mL, R-0 ibuprofen (MOTRIN) 600 mg tablet Take 600 mg by mouth every 6 hours as needed. Insulin [place], Disposable, (BD INSULIN PEN NEEDLE UF SHORT) 31 X 5/16 " Misc N dle Disp-1 Package, R-11 Oxygen-Air Delivery Systems Misc Leisa Take 2 L/min by inhalation daily at bedtim e. ACCU-CHEK ACTIVE CARE Misc Kit by See Admin Instructions route. Before meals, at bedtime, and as needed !! - Potential duplicate medications found. Please discuss with provider. Objective PHYSICAL EXAM INITIAL VS BP: 119/83 mmHg (02/12/151455), Heart Rate: 86 bpm (02/12/151455), Resp: 15 (0 02/12/151455), Temp: 98 F (36.7 C) (02/12/151455), Temp src: Oral (02/12/151455), SpO2: 98 % (02/12/151455), Height: 5' 2" (157.5 cm) (02/12/151455), We ight: 120.203 kg (02/12/151455), BMI (Calculated): 48.57 (02/12/151455) No LMP recorded. Patient has had a hysterectomy. Physical Exam Constitutional: She is oriented to person, place, and time. Obese female in no acute distress HENT: Head: Atraumatic. Right Ear: A middle ear effusion is present. Left Ear: A middle ear effusion is present. Mouth/Throat: Oropharynx is clear and moist. Eyes: Conjunctivae are normal. Neck: Normal range of motion. No JVD present. Cardiovascular: Normal rate, regular rhythm and normal heart sounds. Pulmonary/Chest: Effort normal. No accessory muscle usage. No respiratory distre ss. She has wheezes. She has no rales. Abdominal: Soft. Bowel sounds are normal. There is no tenderness. Musculoskeletal: Normal range of motion. She exhibits no edema. Neurological: She is alert and oriented to person, place, and time. Skin: Skin is warm and dry. DIAGNOSTICS LAB: Results for orders placed or performed during the hospital encounter of 02/12/15 (from the past 24 hour(s)) URINALYSIS WITH REFLEX CULTURE Result Value Ref Range COLOR UA Dark Yellow Pale to dark yellow CLARITY UA Cloudy (A) Clear SPECIFIC GRAVITY UA 1.025 1.003-1.035 PH UA 6.5 5.0-8.0 LEUKOCYTE ESTERASE UA 1+ (A) Negative NITRITE UA Positive (A) Negative PROTEIN UA Trace (A) Negative GLUCOSE UA Negative Negative KETONES UA Negative Negative UROBILINOGEN UA 0.2 <2.0 mg/dL BILIRUBIN UA 1+ (A) Negative BLOOD UA Negative Negative WBC UA 51-100 (A) 0-2 /hpf RBC UA 3-5 (A) 0-2 /hpf BACTERIA UA 4+ (A) Negative /hpf EPITHELIAL CELLS, URINE 0-5 0-5 /hpf AMORPHOUS CRYSTAL Present (A) Absent DRUG SCREEN, URINE Result Value Ref Range AMPHETAMINE QUAL, URINE Negative Negative BARBITURATE QUAL, URINE Negative Negative BENZODIAZEPINE QUAL, URINE Negative Negative COCAINE QUAL URINE Negative Negative OPIATE QUAL, URINE Negative Negative CANNABINOIDS QUAL, URINE Presumptive Positive (A) Negative PCP QUAL, URINE Negative Negative CREATININE, URINE 175.2 29.0-226.0 mg/dL CBC WITH DIFFERENTIAL Result Value Ref Range WBC 9.5 2.9-11.0 K/uL RBC 4.52 3.77-5.57 M/uL HEMOGLOBIN 14.6 11.9-16.3 g/dL HEMATOCRIT 43.9 34.4-51.6 % MCV 97.2 82.4-103.2 fL MCH 32.2 26.2-32.6 pg MCHC 33.1 30.2-35.0 g/dL RDW 13.7 11.1-14.5 % PLATELETS 196 137-410 K/uL MPV 8.7 7.4-11.9 fL NEUTROPHILS 75 (H) 43-73 % LYMPHOCYTES 19 19-47 % MONOCYTES 5 3-9 % EOSINOPHILS 1 0-6 % BASOPHILS 0 0-1 % NEUTROPHIL ABSOLUTE 7.12 1.30-7.60 K/uL LYMPHOCYTE ABSOLUTE 1.82 0.60-4.90 K/uL MONOCYTE ABSOLUTE 0.45 0.10-0.90 K/uL EOSINOPHIL ABSOLUTE 0.10 0.00-0.40 K/uL BASOPHILS ABSOLUTE 0.01 0.00-0.10 K/uL COMPREHENSIVE METABOLIC PANEL Result Value Ref Range SODIUM 144 134-145 mmol/L POTASSIUM 3.7 3.5-5.1 mmol/L CHLORIDE 110 (H) 98-107 mmol/L CO2 23 22-31 mmol/L CALCIUM 8.5 8.5-10.1 mg/dL BUN 11 7-20 mg/dL CREATININE 0.76 0.51-0.95 mg/dL GLUCOSE 114 (H) 70-100 mg/dL TOTAL PROTEIN 7.3 6.4-8.2 g/dL ALBUMIN 3.8 3.4-5.0 g/dL BILIRUBIN TOTAL 0.4 <=1.1 mg/dL ALKALINE PHOSPHATASE 126 (H) 46-116 U/L AST 18 10-40 U/L ALT 34 14-63 U/L GFR >60 >=60 mL/min/1.73 sq meter GFR, >60 >=60 mL/min/1.73 sq meter ANION GAP 11 4-20 mmol/L SALICYLATE LEVEL Result Value Ref Range SALICYLATE LEVEL 4.5 2.8-20.0 mg/dL ACETAMINOPHEN LEVEL Result Value Ref Range ACETAMINOPHEN LEVEL 0 (L) 10-30 ug/mL URINALYSIS WITH REFLEX CULTURE Result Value Ref Range COLOR UA Dark Yellow Pale to dark yellow CLARITY UA Cloudy (A) Clear SPECIFIC GRAVITY UA 1.025 1.003-1.035 PH UA 6.0 5.0-8.0 LEUKOCYTE ESTERASE UA 1+ (A) Negative NITRITE UA Positive (A) Negative PROTEIN UA 1+ (A) Negative GLUCOSE UA Negative Negative KETONES UA Negative Negative UROBILINOGEN UA 0.2 <2.0 mg/dL BILIRUBIN UA 1+ (A) Negative BLOOD UA Negative Negative WBC UA 26-50 (A) 0-2 /hpf RBC UA 3-5 (A) 0-2 /hpf BACTERIA UA 4+ (A) Negative /hpf EPITHELIAL CELLS, URINE 0-5 0-5 /hpf RADIOLOGY: No orders to display EKG: PROCEDURES Procedures MEDICAL DECISION MAKING AND PLAN OF CARE Pt stable for transfer to inpatient psychiatric facility Will need to have combivent inhaler available for use as needed Treat UTI with bactrim pending C&S as it will not interact with her antedepressants REEVALUATION CASE DISCUSSED Evaluated by Mental health-they set her up with a place to s ivy, so will discharge to their care and followup . New Prescriptions for this Encounter SULFAMETHOXAZOLE-TRIMETHOPRIM (BACTRIM DS) 800-160 MG TABLET Take 1 Tablet b y mouth 2 times daily for 7 days. LAST VS BP: 119/83 mmHg (02/12/151455), Heart Rate: 86 bpm (02/12/151455), Resp: 15 (0 02/12/151455), Temp: 98 F (36.7 C) (02/12/151455), Temp src: Oral (02/12/151455), SpO2: 98 % (02/12/151455) CLINICAL IMPRESSION Final diagnoses: [V62.84] Suicidal thoughts (Primary) [595.0] Acute cystitis without hematuria CODING Coding DISPOSITION, EDUCATION AND MEDICATION RECONCILIATION Medications reconciled. See after visit summary for patient education on discha rged patients. ATTESTATION STATEMENTS documented in this encounter Plan of Treatment Not on filedocumented as of this encounter Procedures Comments Procedure Name Priority Date/Time Associated Diag nosis EKG 12-LEAD Stat 02/15/2015 3:25 PM CDT URINALYSIS WITH REFLEX Stat 02/12/2015 CULTURE 3:38 PM CDT URINE CULTURE Stat 02/12/2015 3:38 PM CDT CBC WITH DIFFERENTIAL Stat 02/12/2015 3:03 PM CDT ACETAMINOPHEN LEVEL Stat 02/12/2015 3:03 PM CDT SALICYLATE LEVEL Stat 02/12/2015 3:03 PM CDT COMPREHENSIVE METABOLIC Stat 02/12/2015 PANEL 3:03 PM CDT URINALYSIS WITH REFLEX Stat 02/12/2015 CULTURE 2:52 PM CDT DRUG SCREEN, URINE Stat 02/12/2015 2:52 PM CDT documented in this encounter Results * EKG 12-LEAD (02/15/2015 3:25 PM CDT) Narrative Performed At This result has an attachment that is n ot available. Transcriptions Sukhi Whipple MD - 02/15/2015 9:49 AM CDT [address] [place], [place] [address] Patient Name: JERALD VELAZQUEZ CSN: [id number] : 1970 Provider: Sukhi Whipple M.D. Admitted: 02/12/2015 ELECTROCARDIOGRAM DATE OF SERVICE: 02/12/2015 02/12/2015 at 1516. The rhythm is irregul ar, sinus in origin with a rate of 75 beats per minute. Electrical axis is leftward. Abnormal R wave progression is seen across the chest with loss of R waves from V2 to V3 and small Q waves in V3. Q waves are also noted in inferior limb leads III and aVF. Compared with previous tracing dated August 07 2014, R waves are better seen in V3 previously. Electrical axis has shifted leftward currently. DIAGNOSIS: 1) Sinus rhythm, rate 75 beats per minute. 2) Leftward axis. 3) Borderline inferior limb lead Q waves, probably within normal limits. 4) Abnormal R wave progression, anteroseptal chest leads, possibly due to lead placement. Anteroseptal wall myocardial infarct of undetermined age cannot be completely ruled out. Dictated by: Sukhi Whipple M.D./MEDQ D: [id number] V: [id number] cc: Lorraine Hathaway M.D. * URINE CULTURE (02/12/2015 3:38 PM CDT) CULTURE >= 100,000 cfu/mL Enterococcus [facility] species (A) [facility] [place] CULTURE >= 100,000 cfu/mL Citrobacter [facility] freundii (A) [facility] [place] CULTURE >= 100,000 cfu/mL Pseudomonas [facility] aeruginosa (A) [facility] [place] CULTURE 50,000-99,000 cfu/mL Serratia [facility] marcescens (A) [facility] [place] Specimen Urine - Urine specimen obtained by clean catch procedure (specimen) Narrative Performed At SENSITIVITY TO FOLLOW ON #1 GRAM POSITIVE COCCI - P OSSIBLE ENTEROCOCCI [facility] [place] Antibiotic Method Susceptibility Organism VANCOMYCIN DOMENICA MCG/ML Susceptible Enterococcus species AMPICILLIN DOMENICA MCG/ML <=2 mcg/mL: Susceptible Enterococcus species LEVOFLOXACIN DOMENICA MCG/ML 1 mcg/mL: Susceptible Enterococcus species LINEZOLID DOMENICA MCG/ML 2 mcg/mL: Susceptible Enterococcus species NITROFURANTOIN DOMENICA MCG/ML Susceptible Enterococcus species PENICILLIN DOMENICA MCG/ML 0.5 mcg/mL: Susceptible Enterococcus species CIPROFLOXACIN DOMENICA MCG/ML <=0.5 mcg/mL: Susceptible Enterococcus species CEFAZOLIN DOMENICA MCG/ML 8 mcg/mL: Resistant Citrobacter freundii CEFEPIME DOMENICA MCG/ML <=1 mcg/mL: Susceptible Citrobacter freundii CEFTRIAXONE DOMENICA MCG/ML <=1 mcg/mL: Susceptible Citrobacter freundii CIPROFLOXACIN DOMENICA MCG/ML <=0.25 mcg/mL: Susceptible Citrobacter freundii ERTAPENEM DOMENICA MCG/ML <=0.5 mcg/mL: Susceptible Citrobacter freundii GENTAMICIN DOMENICA MCG/ML <=1 mcg/mL: Susceptible Citrobacter freundii IMIPENEM DOMENICA MCG/ML <=0.25 mcg/mL: Susceptible Citrobacter freundii LEVOFLOXACIN DOMENICA MCG/ML <=0.12 mcg/mL: Susceptible Citrobacter freundii NITROFURANTOIN DOMENICA MCG/ML 32 mcg/mL: Susceptible Citrobacter freundii PIPERACILLIN/ TAZOBACTAM DOMENICA MCG/ML <=4 mcg/mL: Susceptible Citrobacter freundii TOBRAMYCIN DOMENICA MCG/ML <=1 mcg/mL: Susceptible Citrobacter freundii TRIMETHOPRIM/ SULFAMETHOXAZOLE DOMENICA MCG/ML <=20 mcg/mL: Susceptible Citrobacter freundii CEFTAZIDIME DOMENICA MCG/ML <=1 mcg/mL: Susceptible Citrobacter freundii CEFOXITIN DOMENICA MCG/ML 16 mcg/mL: Resistant Citrobacter freundii CEFEPIME DOMENICA MCG/ML 2 mcg/mL: Susceptible Pseudomonas aeruginosa CIPROFLOXACIN DOMENICA MCG/ML <=0.25 mcg/mL: Susceptible Pseudomonas aeruginosa GENTAMICIN DOMENICA MCG/ML 2 mcg/mL: Susceptible Pseudomonas aeruginosa IMIPENEM DOMENICA MCG/ML 1 mcg/mL: Susceptible Pseudomonas aeruginosa LEVOFLOXACIN DOMENICA MCG/ML 0.5 mcg/mL: Susceptible Pseudomonas aeruginosa PIPERACILLIN/ TAZOBACTAM DOMENICA MCG/ML <=4 mcg/mL: Susceptible Pseudomonas aeruginosa TOBRAMYCIN DOMENICA MCG/ML <=1 mcg/mL: Susceptible Pseudomonas aeruginosa CEFTAZIDIME DOMENICA MCG/ML 2 mcg/mL: Susceptible Pseudomonas aeruginosa CEFAZOLIN DOMENICA MCG/ML >=64 mcg/mL: Resistant Serratia marcescens CEFEPIME DOMENICA MCG/ML <=1 mcg/mL: Susceptible Serratia marcescens CEFTRIAXONE DOMENICA MCG/ML <=1 mcg/mL: Susceptible Serratia marcescens CIPROFLOXACIN DOMENICA MCG/ML <=0.25 mcg/mL: Susceptible Serratia marcescens ERTAPENEM DOMENICA MCG/ML <=0.5 mcg/mL: Susceptible Serratia marcescens GENTAMICIN DOMENICA MCG/ML <=1 mcg/mL: Susceptible Serratia marcescens IMIPENEM DOMENICA MCG/ML <=0.25 mcg/mL: Susceptible Serratia marcescens LEVOFLOXACIN DOMENICA MCG/ML <=0.12 mcg/mL: Susceptible Serratia marcescens NITROFURANTOIN DOMENICA MCG/ML 256 mcg/mL: Resistant Serratia marcescens PIPERACILLIN/ TAZOBACTAM DOMENICA MCG/ML <=4 mcg/mL: Susceptible Serratia marcescens TOBRAMYCIN DOMENICA MCG/ML <=1 mcg/mL: Susceptible Serratia marcescens TRIMETHOPRIM/ SULFAMETHOXAZOLE DOMENICA MCG/ML <=20 mcg/mL: Susceptible Serratia marcescens CEFTAZIDIME DOMENICA MCG/ML <=1 mcg/mL: Susceptible Serratia marcescens CEFOXITIN DOMENICA MCG/ML 16 mcg/mL: Intermediate Serratia marcescens Performing Organization Address City/State/Zipcode Ph one Number [facility] CLIA# [id number] [place] [address] - [place] [address] [place] [address] * URINALYSIS WITH REFLEX CULTURE (02/12/2015 3:38 PM CDT) COLOR UA Dark Yellow Pale to dark yellow [facility] [place] CLARITY UA Cloudy (A) Clear [facility] [place] SPECIFIC 1.025 1.003 - 1.035 [facility] GRAVITY [facility] [place] PH UA 6.0 5.0 - 8.0 [facility] [place] LEUKOCYTE 1+ (A) Negative [facility] ESTERASE [facility] [place] NITRITE UA Positive (A) Negative [facility] [place] PROTEIN UA 1+ (A) Negative [facility] [place] GLUCOSE UA Negative Negative [facility] [place] KETONES UA Negative Negative [facility] [place] UROBILINOGEN UA 0.2 <2.0 mg/dL [facility] [place] BILIRUBIN UA 1+ (A) Negative [facility] [place] BLOOD UA Negative Negative [facility] [place] WBC UA 26-50 (A) 0 - 2 /hpf [facility] [place] RBC UA 3-5 (A) 0 - 2 /hpf [facility] [place] BACTERIA UA 4+ (A) Negative /hpf [facility] [place] EPITHELIAL 0-5 0 - 5 /hpf [facility] CELLS, URINE [facility] - [place] Specimen Urine Narrative Performed At Based on results, a urine culture has been reflexed. [facility] [place] Performing Organization Address [facility] CLIA# [id number] [place], [place] [address] [address] * ACETAMINOPHEN LEVEL (02/12/2015 3:03 PM CDT) ACETAMINOPHEN 0 (L) 10 - 30 ug/mL [facility] [place] Specimen Blood Performing Organization Address [facility] CLIA# [id number] [place], [place] [address] [address] * SALICYLATE LEVEL (02/12/2015 3:03 PM CDT) SALICYLATE 4.5 2.8 - 20.0 mg/dL [facility] [place] Specimen Blood Performing Organization Address [facility] CLIA# [id number] [place], [place] [address] [address] * COMPREHENSIVE METABOLIC PANEL (02/12/2015 3:03 PM CDT) SODIUM 144 134 - 145 mmol/L [facility] [place] POTASSIUM 3.7 3.5 - 5.1 mmol/L [facility] REBA CHLORIDE 110 (H) 98 - 107 mmol/L [facility] [place] CO2 23 22 - 31 mmol/L [facility] CALCIUM 8.5 8.5 - 10.1 mg/dL [facility] BUN 11 7 - 20 mg/dL [facility] CREATININE 0.76 0.51 - 0.95 mg/dL [facility] REBA GLUCOSE 114 (H) 70 - 100 mg/dL [facility] [place] TOTAL PROTEIN 7.3 6.4 - 8.2 g/dL [facility] REBA ALBUMIN 3.8 3.4 - 5.0 g/dL [facility] RE[facility] BILIRUBIN TOTAL 0.4 <=1.1 mg/dL [facility] REBA ALKALINE 126 (H) 46 - 116 U/L [facility]PHAT[facility] [place]SA BRITTON AST 18 10 - 40 U/L [facility] REBA ALT 34 14 - 63 U/L [facility] REBA GFR >60 >=60 mL/min/1.73 sq [facility] Comment: meter LABORATORY eGFR has not been validated [facility] for use in the elderly (> 70 [...] result. GFR, >60 >=60 mL/min/1.73 sq [facility]JIAN meter LAB[facility] - ALYSA RBITTON ANION GAP 11 4 - 20 mmol/L [facility] - [facility] REBA Specimen Blood Performing Organization Address City/State/[facility] Ph one Number [facility] CLIA# [id number] CLEMENTE RIOJAS [id number] - ALYSA BRITTON [address] [facility] * CBC WITH DIFFERENTIAL (02/12/2015 3:03 PM CDT) WBC 9.5 2.9 - 11.0 K/uL [facility] [place] RBC 4.52 3.77 - 5.57 M/uL [facility] [place] HEMOGLOBIN 14.6 11.9 - 16.3 g/dL [facility] [place] BR[place] HEMATOCRIT 43.9 34.4 - 51.6 % [facility] [place] BR[place] MCV 97.2 82.4 - 103.2 fL [facility] [place] BRIT[place] MCH 32.2 26.2 - 32.6 pg [facility] [place] MCHC 33.1 30.2 - 35.0 g/dL [facility] [place] BR[place] RDW 13.7 11.1 - 14.5 % [facility] [place] BR[place] PLATELETS 196 137 - 410 K/uL [facility] [place] BR[place] MPV 8.7 7.4 - 11.9 fL [facility] [place] BR[place] NEUTROPHILS 75 (H) 43 - 73 % [facility] [place] BR[place] LYMPHOCYTES 19 19 - 47 % [facility] [place] [facility] MONOCYTES 5 3 - 9 % [facility] [place] EOSINOPHILS 1 0 - 6 % [facility] [place] [facility] BASOPHILS 0 0 - 1 % [facility] [place] NEUTROPHIL 7.12 1.30 - 7.60 K/uL [facility]UTE [facility] - [place]SA BRITTON LYMPHOCYTE 1.82 0.60 - 4.90 K/uL [facility] [place] BRITTON MONOCYTE 0.45 0.10 - 0.90 K/uL [facility] [place] BRITTON EOSINOPHIL 0.10 0.00 - 0.40 K/uL [facility] - [place] BASOPHILS 0.01 0.00 - 0.10 K/uL [facility] [place] BRITTON Specimen Blood Performing Organization Address City/State/[facility] Ph one Number [facility] CLIA# [id number] [place], [place] [address] - ALYSA BRITTON [address] [place] [address] * DRUG SCREEN, URINE (02/12/2015 2:52 PM CDT) AMPHETAMINE Negative Negative [facility] QUAL[facility]INE [facility] - [place]SA BRITTON BARBITURATE Negative Negative [facility] - ALYSA BRITTON BENZODIAZEPINE Negative Negative [facility] - ALYSA BRITTON COCAINE QUAL Negative Negative [facility] - [place]SA BRITTON OPIATE QUAL, Negative Negative [facility] - [place]SA BRITTON CANNABINOIDS Presumptive Positive (A) Negative [facility] - AL[place]SA BRITTON PCP QUAL, URINE Negative Negative [facility] [place] CREATININE, 175.2 29.0 - 226.0 mg/dL [facility] URINE Comment: LABORATORY Reference Range varies with SERVICES - [facility] fluid intake and dietJose Carlos BRITTON Specimen Urine Narrative Performed At CUT-OFF CONCENTRATIONS FOR EACH DRUG CLASS [facility] ng/mL SE RV[facility] - [place] Amphetamines 1000 Barbiturates 200 Benzodiazepines 200 Cocaine metabolite 300 Opiates 2000 Marijuana metabolites 50 Phencyclidine 25 Performing Organization Address City/State/[facility] Ph one Number [facility] CLIA# [id number] [place]SA REBA [place] [address] - ALYSA BRITTON [address] [facility] * URINALYSIS WITH REFLEX CULTURE (02/12/2015 2:52 PM CDT) COLOR UA Dark Yellow Pale to dark yellow [facility] [place] CLARITY UA Cloudy (A) Clear [facility] [place] [facility] SPECIFIC 1.025 1.003 - 1.035 [facility] GRAVITY [facility] - ALYSA BRITTON PH UA 6.5 5.0 - 8.0 [facility] [place] LEUKOCYTE 1+ (A) Negative [facility] ESTERASE [facility] - [place]SA BRITTON NITRITE UA Positive (A) Negative [facility] [place] PROTEIN UA Trace (A) Negative [facility] [place] GLUCOSE UA Negative Negative [facility] [place] KETONES UA Negative Negative [facility] [place] UROBILINOGEN UA 0.2 <2.0 mg/dL [facility] [place] BILIRUBIN UA 1+ (A) Negative [facility] [place] BLOOD UA Negative Negative [facility] [place] WBC UA 51-100 (A) 0 - 2 /hpf [facility] [place] RBC UA 3-5 (A) 0 - 2 /hpf [facility] [place] BR[place] BACTERIA UA 4+ (A) Negative /hpf [facility] [place] BR[place] EPITHELIAL 0-5 0 - 5 /hpf [facility] CELLS, URINE [facility] - ALYSA BRITTON AMORPHOUS Present (A)Comment: 2+ Absent [facility] [employer] [facility] - [place]SA BRITTON Specimen Urine Narrative Performed At Based on results, a urine culture has been reflexed. [facility] - [place] BRIT[place] Performing Organization Address City/State/[facility] Ph one Number [facility] CLIA# [id number] [place] [address] - ALYSA BRITTON [address] [facility] documented in this encounter Visit Diagnoses Diagnosis Suicidal thoughts - Primary Suicidal ideation Acute cystitis without hematuria Acute cystitis COPD (chronic obstructive pulmonary dis ease) Chronic airway obstruction, not elsewhe re classified documented in this encounter
--- OUTSIDE RECORDS SUMMARY | 2019-10-21 18:12 | XMS REPORT | Encounter Summary ---
Author Author [facility] Organization [facility] Address Unknown Phone Unavailable Care Team Providers Care Account Supervisor Name Role Phone Robby Rajan APRN Unavailable Lorraine Hathaway MD PCP Reason for Visit * Reason Comments Stress financial, home living situ ation, separation from her , off of her medications - pt reports recent dx of H IV in [place] Suicidal ideation but no specific pl an at this time - thought about taking medications but states she decided agai nst that Anxiety * Auth/Cert Referred By Contact Referred To Contact Status Reason Specialty Diagnoses / Procedures [facility] Emergency [address] [place] [address] Closed Emergency Medicine Encounter Details Care Team Description Date Type Department Evelio Lewis MD [address] [place] [address] Anxiety (Primary Dx); Suicidal thoughts 01/03/2015 Emergency [facility] Emergency Department [address] [address] Social History Date Tobacco Use [...] Signs Reading Time Taken Comments Vital Sign 141/90 01/03/2015 7:45 PM CDT Blood Pressure - - Pulse 36.7 C (98.1 F) 01/03/2015 3:53 PM CDT Temperature 14 01/03/2015 7:45 PM CDT Respiratory Rate 100% 01/03/2015 7:45 PM CDT Oxygen Saturation - - Inhaled Oxygen Concentration 120.2 kg (265 lb) 01/03/2015 3:53 PM CDT Weight 157.5 cm (5' 2") 01/03/2015 3:53 PM CDT Height 48.47 01/03/2015 3:53 PM CDT Body Mass Index documented in this encounter Discharge Instructions * Instructions* Evelio Lewis MD - 01/03/2015 Work with Mental health to work with the crisis center about your suicidal thoug hts. * Attachments The following attachments cannot be sent through Care Everywhere.* ANXIETY DISORDER (FINNISH) * DEPRESSION: RELAPSE PREVENTION (FINNISH) documented in this encounter Medications at Time [...] by hour capsule mouth daily. 01/15/2013 Insulin [place], 1 Package 11 Disposable, (BD INSULIN PEN [...] Before meals, at bedtime, and as needed 12/29/2014 04/27/2015 potassium chloride Take 1 Tab 30 Tab 5 (K-DUR) 20 mEq Extended (20 mEq) by Release tablet mouth daily rack pusher. 12/29/2014 04/27/2015 metFORMIN (GLUCOPHAGE) Take 1 Tab [...] needed for Shortness of Breath or Wheezing. 01/11/2015 dabigatran etexilate Take 150 mg 0 (PRADAXA) 150 mg Capsule by mouth 2 times daily. 10/08/2013 01/20/2015 loratadine (CLARITIN) 10 Take 1 Tab by 30 Tab 5 mg tablet mouth daily. 06/17/2013 01/13/2015 omeprazole (PRILOSEC) 20 Take 1 Tab by 30 Tab 11 mg Tablet, Delayed mouth daily Release before (E.C.)Indications: Poor breakfast. appetite documented as of this encounter ED Notes * Sarita Pearl RN - 01/03/2015 11:07 PM CDT Aroldo Nichols and another family member her to picker pt. Medications given to fe ryan and he states he will keep them in a safe place and monitor. Ayden agrees n ot to harm herself. [facility] Mental Health Intensive Case Mgt will follow up with he r tomorrow morning for continued care. [facility] Mental Health Worker has tried to pl isis pt for inpatient services with no success tonight, so they released her to c are of Aroldo Nichols and will follow up tomorrow for further treatment. * Jack Roberts RN - 01/03/2015 10:34 PM CDT Spoke with Mental Health Screener and pt is to be released home under the superv ision of Aroldo Nichols. Aroldo Nichols called the ER and advised he will be returning to the ER to picker this pt. Per mental health screener pts meds are to be rel eased to Aroldo Nichols. * Sarita Pearl RN - 01/03/2015 9:41 PM CDT Pt walked out of ER after being asked not to leave ER. Nico contacted Police. * Sarita Pearl RN - 01/03/2015 8:32 PM CDT Pt out to smoke with [facility] Mental Health worker. * Sarita Pearl RN - 01/03/2015 8:30 PM CDT Spoke with Lillian at [facility] with pt present per phone. She will contact her physician to see if pt can be accepted for services. * Sarita Pearl RN - 01/03/2015 8:01 PM CDT Pt provided with sandwich and diet elodia mist soda at this time. * Sarita Pearl RN - 01/03/2015 7:45 PM CDT Screener is trying to place pt in patient at this time. He is in the ER coordin ating placement. * Sarita Pearl RN - 01/03/2015 5:33 PM CDT [facility] Mental Health Professional, Garry, has arrived to screen pt. Pt informed t hat he will be in shortly to speak with her. * Sarita Pearl RN - 01/03/2015 5:10 PM CDT Pt playing a game on her telephone. * Sarita Pearl RN - 01/03/2015 4:35 PM CDT Pt informed that [facility] Mental Health Screener will be here in approx 1 hour. Leg bag changed to SupraPubic Catheter, lab work obtained. Pt has a drink but offer ed snack and declined. Pt wants to go outside to smoke but typewriter tester has requested that she not leave the ER. * Evelio Lewis MD - 01/03/2015 4:20 PM CDT HISTORY OF PRESENT ILLNESS Ayden Odom, a 44 y.o. female presents to the ED with a Chief Complaint o f Stress; Suicidal; and Anxiety Subjective HPI Comments: She has been inconsistent with taking her medicine and is using me thamphetamines at times. She reports extra stress and has been having suicidal t houghts. She reports calling mental health on Sunday and being told to come to E R if things got worse. She felt things were worse today so she came in to the ER to be screened. She denies any medical complaints other than she would like a n ew leg bag because the one she has for her suprapubic catheter has a leak. History provided by: The patient Arrived by: Private vehicle Stress Presenting symptoms: depression and suicidal thoughts Presenting symptoms: no disorganized speech, no disorganized thought process, no homicidal ideas, no suicidal threats and no suicide attempt Patient accompanied by: Friend Degree of incapacity (severity): Unable to specify Onset quality: Gradual Timing: Constant Progression: Worsening Chronicity: Chronic Context: drug abuse, noncompliance and stressful life event Treatment compliance: Some of the time Relieved by: None tried Worsened by: Drugs (used Meth last week) Ineffective treatments: None tried Associated symptoms: anxiety and headaches Associated symptoms: no abdominal pain, no chest pain and no euphoric mood Risk factors: family hx of mental illness and hx of mental illness Suicidal Presenting symptoms: depression and suicidal thoughts Presenting symptoms: no disorganized speech, no disorganized thought process, no homicidal ideas, no suicidal threats and no suicide attempt Associated symptoms: anxiety and headaches Associated symptoms: no abdominal pain, no chest pain and no euphoric mood Anxiety Presenting symptoms: depression and suicidal thoughts Presenting symptoms: no disorganized speech, no disorganized thought process, no homicidal ideas, no suicidal threats and no suicide attempt Associated symptoms: anxiety and headaches Associated symptoms: no abdominal pain, no chest pain and no euphoric mood REVIEW OF SYSTEMS Review of Systems Constitutional: Negative for fever and chills. HENT: Negative for trouble swallowing. Eyes: Negative for photophobia. Respiratory: Negative for shortness of breath. Cardiovascular: Negative for chest pain. Gastrointestinal: Negative for nausea, vomiting and abdominal pain. Genitourinary: Suprapubic cath Musculoskeletal: Negative for joint swelling and gait problem. Skin: Negative for wound. Neurological: Positive for headaches. Negative for weakness. Psychiatric/Behavioral: Positive for suicidal ideas. Negative for homicidal idea s and confusion. The patient is nervous/anxious. PAST MEDICAL HISTORY [...] disorder, unspecified; Seizure disorder; Acute TX (03/2010); and CHF (congestive heart failure). She also has no past medical history of Can cer of breast (female), Ovarian cancer, Endometrial cancer, BRCA1 positive, Radi ation therapy, Chemotherapy, Malignant hyperthermia, Latex sensitivity, Unspecif ied adverse effect of anesthesia, Obstructive sleep apnea (adult) (pediatric), D ifficult intubation, or Temporomandibular joint disorders, unspecified. SURGICAL: Patient has past [...] used smokeless tobacco. She reports that she uses illicit drugs (Methamphetamines). She reports that she currently engages in sexual activ ity and has had male partners. She reports that she does not drink alcohol. No history on file. Social History Other [...] COPD with exacerbation; Vomiting; Pneumonia, organism unspecified; and Methamph etamine use on her problem list. ALLERGIES Aloe vera; Doxycycline; Tape; Xanax; and Zofran HOME MEDICATIONS Discharge Medication List as of 01/03/2015 10:44 PM CONTINUE these medications which have NOT CHANGED Details traZODone (DESYREL) 100 mg tablet Take 3 Tabs (300 mg) by mouth daily at bedtime 3 tabs., Disp-90 Tab, R-5 topiramate (TOPAMAX) 100 mg tablet Take 1 Tab (100 mg) by mouth see administrati on instructions 100mg am, noon, & evening; 200mg at bedtime., Disp-150 Tab, R-5 potassium chloride (K-DUR) 20 mEq Extended Release tablet Take 1 Tab (20 mEq) by mouth daily rack pusher., Disp-30 Tab, R-5 metFORMIN (GLUCOPHAGE) 1,000 mg [...] Breath o r Wheezing., Disp-90 mL, R-0 dabigatran etexilate (PRADAXA) 150 mg Capsule Take 150 mg by mouth 2 times daily . ibuprofen (MOTRIN) 600 mg tablet Take 600 mg by mouth every 6 hours as needed. loratadine (CLARITIN) 10 mg tablet Take 1 Tab by mouth daily., Disp-30 Tab, R-5 omeprazole (PRILOSEC) 20 mg Tablet, Delayed Release (E.C.) Take 1 Tab by mouth d aily before breakfast., Disp-30 Tab, R-11 Insulin Par[place], Disposable, (BD INSULIN PEN NEEDLE UF SHORT) [...] provider. Objective PHYSICAL EXAM INITIAL VS BP: 148/83 mmHg (01/03/15 1553), Heart Rate: 97 bpm (01/03/15 1553), Resp: 20 (0 01/03/151552), Temp: 98.1 F (36.7 C) (01/03/151552), Temp src: Oral (1552), SpO2: 96 % (01/03/151552), Height: 5' 2" (157.5 cm) (01/03/151552), Weight: 120.203 kg (01/03/151552), BMI (Calculated): 48.57 (01/03/151552) No L MP recorded. Patient has had a hysterectomy. Physical Exam Constitutional: She is oriented to person, place, and time. Vital signs are norm al. She appears well-developed and well-nourished. She is active and cooperative . Non-toxic appearance. No distress. Obese female with poor hygiene HENT: Head: Normocephalic and atraumatic. Mouth/Throat: Oropharynx is clear and moist. Cardiovascular: Normal rate, regular rhythm and intact distal pulses. Pulmonary/Chest: Effort normal. No respiratory distress. She has wheezes (faint expiratory wheezes). She has no rales. Abdominal: Soft. Bowel sounds are normal. She exhibits no distension. There is n o tenderness. Musculoskeletal: Normal range of motion. Neurological: She is alert and oriented to person, place, and time. Skin: Skin is warm and dry. She is not diaphoretic. Psychiatric: Her speech is normal and behavior is normal. Her affect is blunt. S he expresses suicidal ideation. She expresses no homicidal ideation. She express es suicidal plans (taking her pills). She expresses no homicidal plans. Nursing note and vitals reviewed. DIAGNOSTICS LAB: Results for orders placed or performed during the hospital encounter of 01/03/15 (from the past 24 hour(s)) DRUG SCREEN, URINE Result Value Ref Range AMPHETAMINE QUAL, URINE Negative Negative BARBITURATE QUAL, URINE Negative Negative BENZODIAZEPINE QUAL, URINE Negative Negative COCAINE QUAL URINE Negative Negative OPIATE QUAL, URINE Negative Negative CANNABINOIDS QUAL, URINE Negative Negative PCP QUAL, URINE Negative Negative CREATININE, URINE 48.7 29.0-226.0 mg/dL SALICYLATE LEVEL Result Value Ref Range SALICYLATE LEVEL 5.0 2.8-20.0 mg/dL ACETAMINOPHEN LEVEL Result Value Ref Range ACETAMINOPHEN LEVEL 0 (L) 10-30 ug/mL ETHANOL LEVEL Result Value Ref Range ETHANOL <3.00 mg/dL ETHANOL % 0.00 %w/v COMPREHENSIVE METABOLIC PANEL Result Value Ref Range SODIUM 138 134-145 mmol/L POTASSIUM 4.1 3.5-5.1 mmol/L CHLORIDE 105 98-107 mmol/L CO2 26 22-31 mmol/L CALCIUM 8.4 (L) 8.5-10.1 mg/dL BUN 17 7-20 mg/dL CREATININE 0.88 0.51-0.95 mg/dL GLUCOSE 118 (H) 70-100 mg/dL TOTAL PROTEIN 6.8 6.4-8.2 g/dL ALBUMIN 3.3 (L) 3.4-5.0 g/dL BILIRUBIN TOTAL 0.4 <=1.1 mg/dL ALKALINE PHOSPHATASE 125 (H) 46-116 U/L AST 13 10-40 U/L ALT 28 14-63 U/L GFR >60 >=60 mL/min/1.73 sq meter GFR, >60 >=60 mL/min/1.73 sq meter ANION GAP 7 4-20 mmol/L CBC WITH DIFFERENTIAL Result Value Ref Range WBC 9.6 2.9-11.0 K/uL RBC 4.47 3.77-5.57 M/uL HEMOGLOBIN 14.0 11.9-16.3 g/dL HEMATOCRIT 42.5 34.4-51.6 % MCV 94.9 82.4-103.2 fL MCH 31.2 26.2-32.6 pg MCHC 32.9 30.2-35.0 g/dL RDW 13.1 11.1-14.5 % PLATELETS 162 137-410 K/uL MPV 8.8 7.4-11.9 fL NEUTROPHILS 69 43-73 % LYMPHOCYTES 23 19-47 % MONOCYTES 6 3-9 % EOSINOPHILS 2 0-6 % BASOPHILS 0 0-1 % NEUTROPHIL ABSOLUTE 6.61 1.30-7.60 K/uL LYMPHOCYTE ABSOLUTE 2.23 0.60-4.90 K/uL MONOCYTE ABSOLUTE 0.54 0.10-0.90 K/uL EOSINOPHIL ABSOLUTE 0.19 0.00-0.40 K/uL BASOPHILS ABSOLUTE 0.03 0.00-0.10 K/uL RADIOLOGY: No orders to display EKG: PROCEDURES Procedures MEDICAL DECISION MAKING AND PLAN OF CARE She denies acting on any of her suicidal thoughts and is medically stable and cl ear to speak with mental health. As a courtesy to them will check for drugs in h er system since she admits to recent use and it may be relevant for their evalua tion and screening. REEVALUATION Labs do not show any drugs or alcohol in her system currently and no acute sig nificant abnormalities on her chemistry or blood count. She continues to be medi gillian stable and clear waiting on mental health to come speak with her. She did ask for Buspar but that would not have an immediate effect so will defer until a fter seeing mental health screener Mental health screener felt admitting her would be helpful. Unfortunately even a fter spending several hours in the ED, she was not able to find an accepting hos pital for her issues. Will have her check back with crisis management About ernesto cidal thoughts and see pcp as soon as possible. CASE DISCUSSED Medications Administered During the ED Stay from 01/03/2015 1548 to 01/04/2015 0 604 Date/Time Order Dose Route Action 01/03/2015 1915 LORazepam (ATIVAN) tablet 1 mg 1 mg Oral Admin by Another Clin ician (Comment) 01/03/2015 1852 LORazepam (ATIVAN) tablet 1 mg 1 mg Oral Given Discharge Medication List as of 01/03/2015 10:44 PM CONTINUE these medications which have NOT CHANGED Details traZODone (DESYREL) 100 mg tablet Take 3 Tabs (300 mg) by mouth daily at bedtime 3 tabs., Disp-90 Tab, R-5 topiramate (TOPAMAX) 100 mg tablet Take 1 Tab (100 mg) by mouth see administrati on instructions 100mg am, noon, & evening; 200mg at bedtime., Disp-150 Tab, R-5 potassium chloride (K-DUR) 20 mEq Extended Release tablet Take 1 Tab (20 mEq) by mouth daily rack pusher., Disp-30 Tab, R-5 metFORMIN (GLUCOPHAGE) 1,000 mg [...] Breath o r Wheezing., Disp-90 mL, R-0 dabigatran etexilate (PRADAXA) 150 mg Capsule Take 150 mg by mouth 2 times daily . ibuprofen (MOTRIN) 600 mg tablet Take 600 mg by mouth every 6 hours as needed. loratadine (CLARITIN) 10 mg tablet Take 1 Tab by mouth daily., Disp-30 Tab, R-5 omeprazole (PRILOSEC) 20 mg Tablet, Delayed Release (E.C.) Take 1 Tab by mouth d aily before breakfast., Disp-30 Tab, R-11 Insulin [place], Disposable, (BD INSULIN PEN NEEDLE UF SHORT) 31 X 5/16 " Misc N dle Disp-1 Package, R-11 Oxygen-Air Delivery Systems Mis Leisa Take 2 L/min by inhalation daily at bedtim e. ACCU-CHEK ACTIVE CARE Misc Kit by See Admin Instructions route. Before meals, at bedtime, and as needed !! - Potential duplicate medications found. Please discuss with provider. LAST VS BP: 141/90 mmHg (01/03/151944), Heart Rate: 93 bpm (01/03/151944), Resp: 14 (0 01/03/151944), Temp: 98.1 F (36.7 C) (01/03/15 155), Temp src: Oral (1552), SpO2: 100 % (01/03/151944) CLINICAL IMPRESSION Final diagnoses: [300.00] Anxiety (Primary) [V62.84] Suicidal thoughts CODING MDM Coding Reviewed: vitals and previous chart Reviewed previous: labs Interpretation: labs and SP02 I have reviewed nursing notes and agree unless otherwise mentioned. Consults: [facility]. DISPOSITION, EDUCATION AND MEDICATION RECONCILIATION Medications reconciled. See after visit summary for patient education on discha rged patients. ATTESTATION STATEMENTS * Sarita Pearl RN - 01/03/2015 4:14 PM CDT [facility] Mental Health Screener, Garry, will come see the patient. He is traveling from [place] and will be approx 1 hour in arriving to [facility]. Pt inform ed. * Sarita Pearl RN - 01/03/2015 4:05 PM CDT [facility] contacted for screening at this time. documented in this encounter Plan of Treatment Not on filedocumented as of this encounter Procedures Comments Procedure Name Priority Date/Time Associated Diag nosis CBC WITH DIFFERENTIAL Stat 01/03/2015 4:25 PM CDT ETHANOL LEVEL Stat 01/03/2015 4:25 PM CDT ACETAMINOPHEN LEVEL Stat 01/03/2015 4:25 PM CDT SALICYLATE LEVEL Stat 01/03/2015 4:25 PM CDT COMPREHENSIVE METABOLIC Stat 01/03/2015 PANEL 4:25 PM CDT DRUG SCREEN, URINE Stat 01/03/2015 4:21 PM CDT documented in this encounter Results * CBC WITH DIFFERENTIAL (01/03/2015 4:25 PM CDT) WBC 9.6 2.9 - 11.0 K/uL [facility] [place] RBC 4.47 3.77 - 5.57 M/uL [facility] [place] [facility] HEMOGLOBIN 14.0 11.9 - 16.3 g/dL [facility] [place] HEMATOCRIT 42.5 34.4 - 51.6 % [facility] [place] MCV 94.9 82.4 - 103.2 fL [facility] [place] MCH 31.2 26.2 - 32.6 pg [facility] REBA MCHC 32.9 30.2 - 35.0 g/dL [facility] [place] [facility] RDW 13.1 11.1 - 14.5 % [facility] [place] [facility] PLATELETS 162 137 - 410 K/uL [facility] [place] MPV 8.8 7.4 - 11.9 fL [facility] [place] [facility] NEUTROPHILS 69 43 - 73 % [facility] REBA LYMPHOCYTES 23 19 - 47 % [facility] [place] [facility] MONOCYTES 6 3 - 9 % [facility] REBA EOSINOPHILS 2 0 - 6 % [facility] REBA BASOPHILS 0 0 - 1 % [facility] [place] [facility] NEUTROPHIL 6.61 1.30 - 7.60 K/uL [facility] [place] LYMPHOCYTE 2.23 0.60 - 4.90 K/uL [facility] [place] MONOCYTE 0.54 0.10 - 0.90 K/uL [facility] [place] EOSINOPHIL 0.19 0.00 - 0.40 K/uL [facility] [place] BASOPHILS 0.03 0.00 - 0.10 K/uL [facility] [place] Specimen Blood Performing Organization Address City/State/Zipcode Ph one Number [facility] CLIA# [id number] CLEMENTE RIOJAS [address] - [place] [address] [facility] * COMPREHENSIVE METABOLIC PANEL (01/03/2015 4:25 PM CDT) [facility] Signature SODIUM 138 134 - 145 mmol/L [facility] POTASSIUM 4.1 3.5 - 5.1 mmol/L [facility] [place] CHLORIDE 105 98 - 107 mmol/L [facility] [place] CO2 26 22 - 31 mmol/L [facility] [place] CALCIUM 8.4 (L) 8.5 - 10.1 mg/dL [facility] [place] BUN 17 7 - 20 mg/dL [facility] [place] CREATININE 0.88 0.51 - 0.95 mg/dL [facility] [place] GLUCOSE 118 (H) 70 - 100 mg/dL [facility] [place] TOTAL PROTEIN 6.8 6.4 - 8.2 g/dL [facility] [place] ALBUMIN 3.3 (L) 3.4 - 5.0 g/dL [facility] BILIRUBIN TOTAL 0.4 <=1.1 mg/dL [facility] [place] ALKALINE 125 (H) 46 - 116 U/L [facility] PHOSPHATASE [facility]ORY [facility] - [place] AST 13 10 - 40 U/L [facility] [place] ALT 28 14 - 63 U/L [facility] [place] [facility] GFR >60 >=60 mL/min/1.73 sq [facility] Comment: meter LABORATORY eGFR has not been validated SERVICES [facility] for use in the elderly (> 70 [...] result. GFR, >60 >=60 mL/min/1.73 sq [facility] meter [facility] [place] ANION GAP 7 4 - 20 mmol/L [facility] [place] [facility] Specimen Blood Performing Organization Address [facility] one [facility] CLIA# [id number] [place] [address] - [address] * ETHANOL LEVEL (01/03/2015 4:25 PM CDT) ETHANOL <3.00 mg/dL [facility] [place] ETHANOL % 0.00 %w/v [facility] [place] Specimen Blood Narrative Performed At Chain of Custody Handling was not perfo rmed on this specimen. This test will not [facility] meet medical-legal requirements. SERVICES - [place] Performing Organization Address [facility] CLIA# [id number] [place] [address] - [address] * ACETAMINOPHEN LEVEL (01/03/2015 4:25 PM CDT) ACETAMINOPHEN 0 (L) 10 - 30 ug/mL [facility] - [place] Specimen Blood Performing Organization Address [facility] one [facility] LABORATORY SERVICES CLIA# [id number] [place] [address] - [address] * SALICYLATE LEVEL (01/03/2015 4:25 PM CDT) SALICYLATE 5.0 2.8 - 20.0 mg/dL [facility] - [place] Specimen Blood Performing Organization Address [facility] CLIA# [id number] [place] [address] - [address] * DRUG SCREEN, URINE (01/03/2015 4:21 PM CDT) AMPHETAMINE Negative Negative [facility] - [place] BARBITURATE Negative Negative [facility] QUAL, [facility] - [place] BENZODIAZEPINE Negative Negative [facility]AL[facility] [place] COCAINE QUAL Negative Negative [facility] [place] OPIATE QUAL, Negative Negative [facility] [place] CANNABINOIDS Negative Negative [facility] QUAL, [facility] REBA PCP QUAL, URINE Negative Negative [facility] [place] [facility] CREATININE, 48.7 29.0 - 226.0 mg/dL [facility] URINE Comment: LABORATORY Reference Range varies with [facility] [place] fluid intake and diet. REBA Specimen Urine Narrative Performed At CUT-OFF CONCENTRATIONS FOR EACH DRUG CLASS [facility]ATORY DRUG ng/mL [facility] [place] Amphetamines 1000 Barbiturates 200 Benzodiazepines 200 Cocaine metabolite 300 Opiates 2000 Marijuana metabolites 50 Phencyclidine 25 Performing Organization Address City/State/[facility] Ph one Number [facility] CLIA# [id number] [place], [place] [address] - [place] [address] [facility] documented in this encounter Visit Diagnoses Diagnosis Anxiety - Primary Anxiety state, unspecified Suicidal thoughts Suicidal ideation documented in this encounter Administered Medications Action Date Dose Rate Site Medication Order MAR Action 01/03/2015 7:15 PM CDT 1 mg LORazepam (ATIVAN) tablet 1 mg Admin by 1 mg, Oral, ONE TIME ONLY, 1 dose, Sun Another 01/03/15 at 1900, Routine Clinician (Comment) 1 mg Given 01/03/2015 6:52 PM CDT LORAZEPAM 0.5 MG TABLET 1 dose, Starting 01/03/15 at 1900, Until 01/04/15 at 0049, Daron KRISHNA: cabinet override, documented in this encounter
--- OUTSIDE RECORDS SUMMARY | 2019-10-21 18:12 | XMS REPORT | Encounter Summary ---
Author Author [facility] Organization [facility] Address Unknown Phone Unavailable Care Team Providers Care Wire Border Assembler Name Role Phone Robby Rajan APRN Unavailable Lorraine Hathaway MD PCP Reason for Visit * Reason Comments Medication Refill Encounter Details Care Team Description Date Type Department Lorraine aHthaway MD [address] [place] [address] 03/29/2015 Refill [facility] Primar y Care [address] [address] Social History Date Tobacco Use [...]
--- OUTSIDE RECORDS SUMMARY | 2019-10-21 18:12 | XMS REPORT | Encounter Summary ---
Author Author [facility] Organization [facility] Address Unknown Phone Unavailable Care Team Providers Care Ranch Supervisor Name Role Phone Robby Rajan APRN Unavailable Lorraine Hathaway MD PCP Reason for Visit * Reason Comments Medication Refill Encounter Details Care Team Description Date Type Department Lorraine Hathaway MD [address] [place] [address] 04/26/2015 Refill [facility] Primar y Care [address] [address] Social History Date Tobacco Use [...]
--- OUTSIDE RECORDS SUMMARY | 2019-10-21 18:12 | XMS REPORT | Encounter Summary ---
Author Author [facility] Organization [facility] Address Unknown Phone Unavailable Care Team Providers Care Deli Cook Name Role Phone Satinder Robby Мария SOLAR ENERGY SALES SPECIALIST Unavailable Lorraine Hathaway MD PCP Reason for Visit * Reason Comments Fall living in upstairs apartmen t and keeps falling, needs a floor level apartment Encounter Details Care Team Description Date Type Department Lorraine Hathaway MD [address] [place] [address] Chronic pain syndrome (Primary Dx) 04/02/2015 Office Visit [facility] Primar [facility] [address] [place] [address] Social History Date Tobacco Use [...] Signs Reading Time Taken Comments Vital Sign 110/60 04/02/2015 11:05 AM CDT Blood Pressure - - Pulse - - Temperature - - Respiratory Rate - - Oxygen Saturation - - Inhaled Oxygen Concentration 122.9 kg (271 lb) 04/02/2015 11:05 AM CDT Weight 158.8 cm (5' 2.5") 04/02/2015 11:05 AM CDT Height 48.78 04/02/2015 11:05 AM CDT Body Mass Index documented in this encounter Progress Notes * Lorraine Hathaway MD - 04/02/2015 11:19 AM CDT HISTORY OF PRESENT ILLNESS Ayden Odom, a 44 y.o. female. Subjective HPI Keeps falling down stairs. Needs a letter saying that she needs ground level ap artment. Thinks thyroid medication helping. Mobic not helping. REVIEW OF SYSTEMS Review of Systems Constitutional: Negative for fever and chills. Objective PHYSICAL EXAM BP 110/60 mmHg | Ht 5' 2.5" (1.588 m) | Wt 271 lb (122.925 kg) | BMI 48.75 kg/m2 Physical Exam Constitutional: She is oriented to person, place, and time. She appears well-dev eloped and well-nourished. No distress. Neurological: She is alert and oriented to person, place, and time. Psychiatric: She has a normal mood and affect. Her behavior is normal. Judgment and thought content normal. Assessment ASSESSMENT and PLAN: ICD-9-CM ICD-10-CM 1. Chronic pain syndrome 338.4 G89.4 Orders Placed This Encounter diclofenac sodium (VOLTAREN) 50 mg Tablet, Delayed Release (E.C.) Stop mobic and start diclofenac. Will give letter for immediate placement on gr ound level. Will recheck labs in 3 more weeks. documented in this encounter Plan of Treatment Not on filedocumented as of this encounter Visit Diagnoses Diagnosis Chronic pain syndrome - Primary documented in this encounter
--- OUTSIDE RECORDS SUMMARY | 2019-10-21 18:12 | XMS REPORT | Encounter Summary ---
Author Author [facility] Organization [facility] Address Unknown Phone Unavailable Care Team Providers Care Phlebotomy Technician Name Role Phone King Robby Мария KILLIAN Unavailable Lorraine Hathaway MD PCP Reason for Visit * Reason Comments Back Pain Arm pain bilateral arms, left worse than right Hand Pain bilateral hands, left worse than right Encounter Details Care Team Description Date Type Department Lorraine Hathaway MD [address] [place] [address] Chronic pain syndrome (Primary Dx); Other specified hypothyroidism; Obesity (BMI 35.0-39.9 without comorbidity); Type 1 diabetes, uncontrolled, with neuropathy; Type 2 diabetes, controlled, with neuropathy; Tobacco use; Cigarette nicotine dependence, uncomplicated; Chronic obstructive pulmonary disease with acute lower respiratory infection; Need for immunization against influenza 03/09/2015 Office Visit [address] [address] Social History Date Tobacco Use [...] Signs Reading Time Taken Comments Vital Sign 114/70 03/09/2015 10:37 AM CDT Blood Pressure - - Pulse - - Temperature - - Respiratory Rate - - Oxygen Saturation - - Inhaled Oxygen Concentration 124.3 kg (274 lb) 03/09/2015 10:37 AM CDT Weight 157.5 cm (5' 2") 03/09/2015 10:37 AM CDT Height 50.12 03/09/2015 10:37 AM CDT Body Mass Index documented in this encounter Progress Notes * Lorraine Hathaway MD - 03/09/2015 10:45 AM CDT HISTORY OF PRESENT ILLNESS Ayden Odom, a 44 y.o. female. Subjective HPI Pain in bilateral wrists. Hands are going numb and weak. Had carpal tunnel surgery in right hand and now getting worse again. Left hand she has never had surgery. She used to be on thryroid medication. Now not taking it because doctor took he r off. Thinks it was 100 mcg. Can't lose weight on 1500 calorie diet. Needs sleep study to get oxygen renewed. REVIEW OF SYSTEMS Review of Systems Constitutional: Positive for fatigue and unexpected weight change. Negative for fever and chills. HENT: Negative. Respiratory: Positive for shortness of breath. Negative for chest tightness. Cardiovascular: Negative for chest pain, palpitations and leg swelling. Genitourinary: Negative. Neurological: Positive for weakness and numbness. Objective PHYSICAL EXAM BP 114/70 mmHg | Ht 5' 2" (1.575 m) | Wt 274 lb (124.286 kg) | BMI 50.10 kg/m2 Physical Exam Constitutional: She is oriented to person, place, and time. She appears well-dev eloped and well-nourished. No distress. HENT: Head: Normocephalic and atraumatic. Cardiovascular: Normal rate and regular rhythm. Pulmonary/Chest: Effort normal. She has wheezes. Neurological: She is alert and oriented to person, place, and time. Skin: Skin is warm. Psychiatric: She has a normal mood and affect. Her behavior is normal. Judgment and thought content normal. Assessment ASSESSMENT and PLAN: ICD-9-CM ICD-10-CM 1. Chronic pain syndrome 338.4 G89.4 DRUG SCREEN, URINE 2. Other specified hypothyroidism 244.8 E03.8 TSH 3. Obesity (BMI 35.0-39.9 without comorbidity) 278.01 E66.01 4. Type 1 diabetes, uncontrolled, with neuropathy 250.63 E10.40 357.2 E10.65 5. Type 2 diabetes, controlled, with neuropathy 250.60 E11.40 357.2 6. Tobacco use 305.1 Z72.0 7. Cigarette nicotine dependence, uncomplicated 305.1 F17.210 8. Chronic obstructive pulmonary disease with acute lower respiratory infection 496 J44.0 CA NONINVASV OXYGEN SATUT,CONTINUOUS 519.8 Will order sleep study for oxygen at night. She is cutting back on cigarettes. Will start small dose of tramadol for pain and change ibuprofen to mobic. Will check labs along with drug screen and thyroid before her next appointment w [facility]. Flu shot today. Discussed need for nebulizer with patient today. Patient has COPD and requires the nebulizer to administer albuterol for disease management. Discussed need for nebulizer with patient today. Patient has COPD and requires the nebulizer to administer albuterol due to persistent thick secretions. Discussed need for cane with patient today. Patient has deficits in mobility an d self-care due to chronic pain. Patient is unable to ambulate more than a few feet and requires cane to assist with ambulation and balance. Patient is able t o safely use the cane and its use will resolve her mobility deficits. Patient needs shower chair because she is unable to stand for long periods of ti me without pain and weakness. documented in this encounter Plan of Treatment Not on filedocumented as of this encounter Results * DRUG SCREEN, URINE (04/27/2015 8:06 AM PRODUCTION CONTROL MANAGER) [facility] AMPHETAMINE Negative Negative [facility], URINE LABORATORY SERVICES - [facility] REBA BARBITURATE Negative Negative [facility], URINE LAB[facility] - [facility] REBA BENZODIAZEPINE Negative Negative [facility], URINE LAB[facility] SERVICES - [facility] REBA COCAINE QUAL Negative Negative [facility] URINE [facility] - [facility] REBA OPIATE QUAL, Negative Negative [facility] URINE [facility]ORY [facility] - [facility] REBA CANNABINOIDS Negative Negative [facility], URINE LAB[facility]ORY SERVICES - [facility] REBA PCP QUAL, URINE Negative Negative [facility] LAB[facility] - [facility] REBA CREATININE, 49.9 29.0 - 226.0 mg/dL [facility] URINE Comment: LABORATORY Reference Range varies with SERVICES - [facility] fluid intake and diet. [place] Specimen Urine Narrative Performed At CUT-OFF CONCENTRATIONS FOR EACH DRUG CLASS [facility] LAB ORATORY DRUG ng/mL SE [facility] - [place] Amphetamines 1000 Barbiturates 200 Benzodiazepines 200 Cocaine metabolite 300 Opiates 2000 Marijuana metabolites 50 Phencyclidine 25 Performing Organization Address [facility] Ph one Number [facility] LABORATORY SERVICES CLIA# [id number] [place]IOJ[place] [address] [address] * TSH (04/27/2015 8:06 AM PRODUCTION CONTROL MANAGER) TSH 2.18 0.34 - 4.82 uIU/mL [facility] LABORATORY SERVICES - [facility] REBA Specimen Blood Performing Organization Address [facility] Ph one Judie [facility] LABORATORY SERVICES CLIA# [id number] [place] [address] [address] documented in this encounter Visit Diagnoses Diagnosis Chronic pain syndrome - Primary Other specified hypothyroidism Obesity (BMI 35.0-39.9 without comorbid ity) Obesity, unspecified Type 1 diabetes, uncontrolled, with nic ropathy Type I (juvenile type) diabetes mellitu s with neurological manifestations, uncontrolled Type 2 diabetes, controlled, with neuro daniella Type II or unspecified type diabetes me llitus with neurological manifestations, not stated as uncontrolled Tobacco use Tobacco use disorder Cigarette nicotine dependence, uncompli cated Tobacco use disorder Chronic obstructive pulmonary disease w ith acute lower respiratory infection Obstructive chronic bronchitis with exa cerbation Need for immunization against influenza Need for prophylactic vaccination and i noculation against influenza documented in this encounter
--- OUTSIDE RECORDS SUMMARY | 2019-10-21 18:12 | XMS REPORT | Encounter Summary ---
Author Author [facility] Organization [facility] Address Unknown Phone Unavailable Care Team Providers Care Yard Switch Operator Name Role Phone Robby Rajan APRN Unavailable Lorraine Hathaway MD PCP Reason for Visit * Reason Comments Medication Refill Encounter Details Care Team Description Date Type Department Lorraine Hathaway MD [address] [place] [address] 01/20/2015 Refill [facility] Primar y Care [address] [address] Social History Date Tobacco Use [...]
--- OUTSIDE RECORDS SUMMARY | 2019-10-21 18:12 | XMS REPORT | Encounter Summary ---
Author Author [facility] Organization [facility] Address Unknown Phone Unavailable Care Team Providers Care Planning Coordinator Name Role Phone Robby Rajan APRN Unavailable Lorraine Hathaway MD PCP Reason for Visit * Reason Comments Medication Refill Encounter Details Care Team Description Date Type Department Lorraine Hathaway MD [address] [place] [address] 01/11/2015 Refill [facility] Primar y Care [address] [address] Social History Date Tobacco Use [...]
--- OUTSIDE RECORDS SUMMARY | 2019-10-21 18:12 | XMS REPORT | Encounter Summary ---
Author Author [facility] Organization [facility] Address Unknown Phone Unavailable Care Team Providers Care Neon Technician Name Role Phone Robby Rajan APRN Unavailable Lorraine Hathaway MD PCP Reason for Visit * Reason Comments Medication Refill Encounter Details Care Team Description Date Type Department Lorraine Hathaway MD [address] [place] [address] 03/11/2015 Refill [facility] Primar y Care [address] [address] Social History Date Tobacco Use [...]
--- OUTSIDE RECORDS SUMMARY | 2019-10-21 18:12 | XMS REPORT | Encounter Summary ---
Author Author [facility] Organization [facility] Address Unknown Phone Unavailable Care Team Providers Care Measurement Superintendent Name Role Phone Robby Rajan APRN Unavailable Lorraine Hathaway MD PCP Encounter Details Care Team Description Date Type Department Lorraine Hathaway MD [address] [place] [address] Fts, Outpt Lab 04/27/2015 [facility] Outpatient Encounter Laboratory [address] [address] Social History Date Tobacco Use [...] (20 mEq) by Release tablet mouth daily stock handler. 04/27/2015 omeprazole (PRILOSEC) 20 Take 1 Tablet [...] by hour capsule mouth daily. 01/15/2013 Insulin [place], 1 Package 11 Disposable, (BD INSULIN PEN [...] 1 tablet (50 mcg) by mouth daily stock handler. 04/27/2015 05/31/2015 ipratropium-albuterol Take 3 mL by [...] Date/Time Associated Diag nosis CBC WITH DIFFERENTIAL Routine 04/27/2015 Rash and nonspecific skin 11:46 AM CITIZENSHIP TEACHER eruption RPR Routine 04/27/2015 Rash and nonspe cific skin 11:46 AM CITIZENSHIP TEACHER eruption DRUG SCREEN, URINE Routine 04/27/2015 Chronic dyan n syndrome 8:06 AM CITIZENSHIP TEACHER TSH Routine 04/27/2015 Other specified 8:06 AM CITIZENSHIP TEACHER hypothyroidism HEMOGLOBIN A1C Routine 04/27/2015 Diabetes mellit us without 8:06 AM CITIZENSHIP TEACHER complication LIPID PANEL Routine [facility]/27/2015 [facility] 8:06 AM CITIZENSHIP TEACHER complication COMPREHENSIVE METABOLIC Routine 04/27/2015 Diabet es mellitus without PANEL 8:06 AM CITIZENSHIP TEACHER complication documented in this encounter Results * CBC WITH DIFFERENTIAL (04/27/2015 11:46 AM CITIZENSHIP TEACHER) WBC 10.2 2.9 - 11.0 K/uL [facility] LAB[facility]ORY SERVICES - [place]SA BRITTON RBC 4.86 3.77 - 5.57 M/uL [facility] - [place] HEMOGLOBIN 15.1 11.9 - 16.3 g/dL [facility] [place] BR[place] HEMATOCRIT 45.4 34.4 - 51.6 % [facility] - [place]YSA BRITTON MCV 93.5 82.4 - 103.2 fL [facility] - [place]YSA BRITTON MCH 31.1 26.2 - 32.6 pg [facility] - [place]SA BRITTON MCHC 33.2 30.2 - 35.0 g/dL [facility] - ALYSA BRITTON RDW 12.3 11.1 - 14.5 % [facility] - [place] BRIT[place] PLATELETS 169 137 - 410 K/uL [facility] - [place] MPV 8.5 7.4 - 11.9 fL [facility] - [place] BR[place] NEUTROPHILS 70 43 - 73 % [facility] - [place] LYMPHOCYTES 23 19 - 47 % [facility] - [place] MONOCYTES 5 3 - 9 % [facility] - [place] EOSINOPHILS 2 0 - 6 % [facility] - [place] BR[place] BASOPHILS 0 0 - 1 % [facility] - [place] BR[place] NEUTROPHIL 7.11 1.30 - 7.60 K/uL [facility]UTE [facility] - [place]YSA BRITTON LYMPHOCYTE 2.30 0.60 - 4.90 K/uL [facility] - [place]SA BRIT[place] MONOCYTE 0.47 0.10 - 0.90 K/uL [facility] - [place]SA BRIT[place] EOSINOPHIL 0.25 0.00 - 0.40 K/uL [facility] - [place]SA BRITTON BASOPHILS 0.04 0.00 - 0.10 K/uL [facility] - [place]SA BRITTON Specimen Blood Performing Organization Address City/[facility] Ph one Number [facility] CLIA# [id number] [place], [place] [address] - ALYSA BRITTON [address] [place] [address] * RPR (04/27/2015 11:46 AM CITIZENSHIP TEACHER) Pathologist [facility] RPR Non-Reactive Non-Reactive [facility]-[place] Specimen Blood specimen (specimen) Narrative Performed At REFERENCE LAB ACC #: [id number] [facility] LABORATOR Y SERVICES-[place] Performing Organization Address City/[facility] Ph one Number [facility] CLIA # [id number] [place] [address] [phone] SERVICES-[place] [address] [facility] LABORATORY CLIA # [id number] [place] [address] SERVICES-[place] [address] [facility] * COMPREHENSIVE METABOLIC PANEL (04/27/2015 8:06 AM CITIZENSHIP TEACHER) SODIUM 139 134 - 145 mmol/L [facility] - [place]SA BRIT[place] POTASSIUM 3.8 3.5 - 5.1 mmol/L [facility] - ALYSA BRITTON CHLORIDE 106 98 - 107 mmol/L [facility] - [place] BR[place] CO2 23 22 - 31 mmol/L [facility] - [place] BR[place] CALCIUM 8.5 8.5 - 10.1 mg/dL [facility] - [place] BR[place] BUN 13 7 - 20 mg/dL [facility] - [place]SA BR[place] CREATININE 0.98 (H) 0.51 - 0.95 mg/dL [facility] - [place] GLUCOSE 128 (H) 70 - 100 mg/dL [facility] - [place] BR[place] TOTAL PROTEIN 7.4 6.4 - 8.2 g/dL [facility] - [place] ALBUMIN 4.0 3.4 - 5.0 g/dL [facility] - [place] BR[place] BILIRUBIN TOTAL 0.4 <=1.1 mg/dL [facility] - [place]SA BRIT[place] ALKALINE 117 (H) 46 - 116 U/L [facility] PHOSPHATASE LABORATORY SERVICES - ALYSA BRITTON AST 21 10 - 40 U/L [facility] - ALYSA BRITTON ALT 29 14 - 63 U/L [facility] - [place]YSA BRITTON GFR >60 >=60 mL/min/1.73 sq [facility] Comment: meter LABORATORY eGFR has not been validated [facility] for use in the elderly (> [...] result. GFR, >60 >=60 mL/min/1.73 sq [facility] meter LABORATORY SERVICES - ALYSA BRITTON ANION GAP 10 4 - 20 mmol/L [facility] - ALYSA BRITTON Specimen Blood Performing Organization Address City/State/Zipcode Ph one Number [facility] CLIA# [id number] [place]SA [place] [address] - ALYSA BRITTON [address] [facility] * LIPID PANEL (04/27/2015 8:06 AM CITIZENSHIP TEACHER) CHOLESTEROL 176 <200 mg/dL [facility] - [place] TRIGLYCERIDE 250 (H) <150 mg/dL [facility] - [place] HDL 40 40 - 59 mg/dL [facility] [place] LDL CALCULATED 86 <100 mg/dL [facility] [place] NON-HDL 136 (H) <130 mg/dL [facility] CHOLESTEROL LABORATORY SERVICES - [place] Specimen Blood Narrative Performed At TOTAL CHOLESTEROL mg/dL [facility] Desirable <200 SERVICES - [facility] Borderline high 200-239 REBA High >=240 TRIGLYCERIDES mg/dL Normal <150 Borderline high 150-199 High 200-499 Very high >=500 HDL CHOLESTEROL mg/dL Low <40 Normal 40-59 Desirable >=60 LDL CHOLESTEROL mg/dL Optimal <100 Low risk 100-129 Borderline high 130-159 High 160-189 Very high >=190 NON HDL CHOLESTEROL mg/dL Optimal <130 Near Optimal 130-159 Borderline High 160-189 High 190-219 Very high >=220 Based on AHA/NCEP Guidelines Performing Organization Address [facility] one [facility] LABORATORY SERVICES CLIA# [id number] [place], [place] [address] * HEMOGLOBIN A1C (04/27/2015 8:06 AM CITIZENSHIP TEACHER) HEMOGLOBIN A1C 5.4 0.0 - 6.0 % [facility] - [place] EST. AVG 108 mg/dL [facility] GLUCOSE, A1C LABORATORY SERVICES - [place] Specimen Blood Performing Organization Address [facility] LABORATORY SERVICES CLIA# [id number] [place], [place] [address] * DRUG SCREEN, URINE (04/27/2015 8:06 AM CITIZENSHIP TEACHER) AMPHETAMINE Negative Negative [facility], URINE LAB[facility] - [place] BARBITURATE Negative Negative [facility], URINE LAB[facility]ORY [facility] - [place] BENZODIAZEPINE Negative Negative [facility], URINE LAB[facility]ORY [facility] - [place] COCAINE QUAL Negative Negative [facility] URINE [facility] - [place] OPIATE QUAL, Negative Negative [facility] URINE [facility] - [place] CANNABINOIDS Negative Negative [facility] URINE LAB[facility] - [place] PCP QUAL, URINE Negative Negative [facility] [place] CREATININE, 49.9 29.0 - 226.0 mg/dL [facility] URINE Comment: LABORATORY Reference Range varies with SERVICES - [facility] fluid intake and diet. [place] Specimen Urine Narrative Performed At CUT-OFF CONCENTRATIONS FOR EACH DRUG CLASS [facility] LAB ORATORY DRUG ng/mL [facility] - [place] Amphetamines 1000 Barbiturates 200 Benzodiazepines 200 Cocaine metabolite 300 Opiates 2000 Marijuana metabolites 50 Phencyclidine 25 Performing Organization Address [facility] Ph one Judie [facility] CLIA# [id number] CLEMENTE RIOJAS [address] [address] * TSH (04/27/2015 8:06 AM CITIZENSHIP TEACHER) TSH 2.18 0.34 - 4.82 uIU/mL [facility] [employer] [facility] - [place]SA BRIT[place] Specimen Blood Performing Organization Address [facility] one Judie [facility] CLIA# [id number] CLEMENTE RIOJAS [address] - [address] documented in this encounter Visit Diagnoses Diagnosis Other specified hypothyroidism Chronic pain syndrome Diabetes mellitus without complication Type II or unspecified type diabetes me llitus without mention of complication, not stated as uncontrolled Rash and nonspecific skin eruption Rash and other nonspecific skin eruptio n documented in this encounter
--- OUTSIDE RECORDS SUMMARY | 2019-10-21 18:12 | XMS REPORT | Encounter Summary ---
Author Author [facility] Organization [facility] Address Unknown Phone Unavailable Care Team Providers Care Material Inspector Name Role Phone Robby Rajan APRN Unavailable Lorraine Hathaway MD PCP Encounter Details Care Team Description Date Type Department Lorraine Hathaway MD [address] [place] [address] 01/15/2015 Abstract [facility] Primar y Care [place] [address] [place] [address] Social History Date Tobacco Use [...]
--- OUTSIDE RECORDS SUMMARY | 2019-10-21 18:12 | XMS REPORT | Encounter Summary ---
Author Author [facility] Organization [facility] Address Unknown Phone Unavailable Care Team Providers Care Ambulatory Service Representative Name Role Phone Robby Rajan APRN Unavailable Lorraine Hathaway MD PCP Reason for Visit * Reason Comments Medication Refill Encounter Details Care Team Description Date Type Department Lorraine Hathaway MD [address] [place] [address] 03/17/2015 Refill [facility] Primar y Care [address] [address] Social History Date Tobacco Use [...]
--- OUTSIDE RECORDS SUMMARY | 2019-10-21 18:12 | XMS REPORT | Encounter Summary ---
Author Author [facility] Organization [facility] Address Unknown Phone Unavailable Care Team Providers Care Needleworker Name Role Phone Robby Rajan APRN Unavailable Lorraine Hathaway MD PCP Reason for Visit * Reason Comments Medication Refill Encounter Details Care Team Description Date Type Department Lydia Fung, TUMBLER OPERATOR [address] [place] [id number] 03/29/2015 Refill [facility] [address] [place] [address] Social History Date Tobacco Use Types Packs/Day [...]
--- OUTSIDE RECORDS SUMMARY | 2019-10-21 18:12 | XMS REPORT | Encounter Summary ---
Author Author [facility] Organization [facility] Address Unknown Phone Unavailable Care Team Providers Care Buckle Gluer Name Role Phone Robby Rajan APRN Unavailable Lorraine Hathaway MD PCP Encounter Details Care Team Description Date Type Department Lorraine Hathaway MD [address] [place] [address] (Primary Dx) 01/06/2015 Orders Only [facility] Primar y Care [place] [address] [place] [address] Social History Date Tobacco Use [...] as of this encounter Visit Diagnoses Diagnosis Urinary catheter in place - Primary Other postprocedural status documented in this encounter
--- OUTSIDE RECORDS SUMMARY | 2019-10-21 18:12 | XMS REPORT | Encounter Summary ---
Author Author [facility] Organization [facility] Address Unknown Phone Unavailable Care Team Providers Care Forensic Audit Expert Name Role Phone King Robby Мария KILLIAN Unavailable Lorraine Hathaway MD PCP Reason for Referral * Eval and Treat (Routine) Referred By Contact Referred To Contact Status Reason Specialty Diagnoses / Procedures Lorraine Hathaway MD [address] [place] [address] Vincenzo Rodríguez MD [address] [place] [address] Closed Orthopedic Diagnoses Surgery Right shoulder injury, initial encounter Reason for Visit * Reason Comments Follow Up Shoulder Pain right shoudler Hand Pain Medication Refill Encounter Details Care Team Description Date Type Department Lorraine Hathaway MD [address] [place] [address] Right shoulder injury, initial encounter (Primary Dx); Rash and nonspecific skin eruption 04/27/2015 Office Visit [facility] [address] [address] Social History Date Tobacco Use [...] Reading Time Taken Comments Vital Sign 92/60 04/27/2015 11:02 AM CENTRIFUGAL OPERATOR Blood Pressure - - Pulse - - Temperature - - Respiratory Rate - - Oxygen Saturation - - Inhaled Oxygen Concentration 122 kg (269 lb) 04/27/2015 11:02 AM CENTRIFUGAL OPERATOR Weight 158.8 cm (5' 2.5") 04/27/2015 11:02 AM CENTRIFUGAL OPERATOR Height 48.42 04/27/2015 11:02 AM CENTRIFUGAL OPERATOR Body Mass Index documented in this encounter Progress Notes * Lorraine Hathaway MD - 04/27/2015 11:23 AM CENTRIFUGAL OPERATOR HISTORY OF PRESENT ILLNESS Ayden Odom, a 44 y.o. female presents with a Chief Complaint of Follow U p; Shoulder Pain; Hand Pain; and Medication Refill Subjective HPI Fell 2 days and hit right shoulder. Hurting. Has had surgery on it before a fe w years back. Rash breaking out on palms for the last 3 months. REVIEW OF SYSTEMS Review of Systems Constitutional: Negative for fever and chills. Respiratory: Negative. Objective PHYSICAL EXAM BP 92/60 mmHg | Ht 5' 2.5" (1.588 m) | Wt 269 lb (122.018 kg) | BMI 48.39 kg/m2 Physical Exam Constitutional: She is oriented to person, place, and time. She appears well-dev eloped and well-nourished. No distress. HENT: Head: Normocephalic and atraumatic. Musculoskeletal: She exhibits no edema. Neurological: She is alert and oriented to person, place, and time. Psychiatric: She has a normal mood and affect. Her behavior is normal. Judgment and thought content normal. Assessment ASSESSMENT and PLAN: ICD-9-CM ICD-10-CM 1. Right shoulder injury, initial encounter 959.2 S49.91XA XR SHOULDER 2+ VW RIG HT AMB REFERRAL TO ORTHOPEDIC SURGERY 2. Rash and nonspecific skin eruption 782.1 R21 RPR CBC WITH DIFFERENTIAL Unsure of cause of palmar rash. Will check CBC and syphillis. Will get x-ray and send to ortho. RIFUGAL OPERATOR documented in this encounter Plan of Treatment Order Schedule Name Type Priority Associated Diag noses Ordered: 04/27/2015 AMB REFERRAL TO Outpatient Routine Right shoulder injury, ORTHOPEDIC SURGERY Referral initial encounter documented as of this encounter Results * XR SHOULDER 2+ VW RIGHT (04/27/2015 12:10 PM CENTRIFUGAL OPERATOR) Specimen Impressions Performed At IMPRESSION: Subacromial bone [...] separation. Pulmonary calix intact. Procedure Note Interface, [facility] Incoming Radiology Results - 04/27/2015 12:30 PM CENTRIFUGAL OPERATOR STUDY: Right shoulder radiograph. INDICATION: Right shoulder [...] SYSTEM INTERFACE SYSTEM Refer to clinic/hospital department * CBC WITH DIFFERENTIAL (04/27/2015 11:46 AM CENTRIFUGAL OPERATOR) WBC 10.2 2.9 - 11.0 K/uL [facility] [place] RBC 4.86 3.77 - 5.57 M/uL [facility] [place] HEMOGLOBIN 15.1 11.9 - 16.3 g/dL [facility] [place] HEMATOCRIT 45.4 34.4 - 51.6 % [facility] [place] MCV 93.5 82.4 - 103.2 fL [facility] [place] MCH 31.1 26.2 - 32.6 pg [facility] [place] MCHC 33.2 30.2 - 35.0 g/dL [facility] [place] [place] RDW 12.3 11.1 - 14.5 % [facility] [place] [place] PLATELETS 169 137 - 410 K/uL [facility] [place] MPV 8.5 7.4 - 11.9 fL [facility] [place] NEUTROPHILS 70 43 - 73 % [facility] [place] LYMPHOCYTES 23 19 - 47 % [facility] [place] MONOCYTES 5 [...] BR[place] EOSINOPHIL 0.25 0.00 - 0.40 K/uL [facility] [place] BASOPHILS 0.04 0.00 - 0.10 K/uL [facility] [place] Specimen Blood Performing Organization Address City/State/Zipcode Ph one Number [facility] CLIA# [id number] CLEMENTE RIOJAS [address] - [place] [address] * RPR (04/27/2015 11:46 AM CENTRIFUGAL OPERATOR) RPR Non-Reactive Non-Reactive [facility] Specimen Blood specimen (specimen) Narrative Performed At REFERENCE LAB ACC #: [id number] [facility] Performing Organization Address City/State/[facility] Ph one Number [facility] CLIA # [id number] [place] [address] [facility] [address] [facility] CLIA # [id number] [place] [address] [facility] [address] documented in this encounter Visit Diagnoses Diagnosis Right shoulder injury, initial encounte r - Primary Rash and nonspecific skin eruption Rash and other nonspecific skin eruptio n documented in this encounter
--- OUTSIDE RECORDS SUMMARY | 2019-10-21 18:13 | XMS REPORT | Encounter Summary ---
Author Author [facility] Organization [facility] Address Unknown Phone Unavailable Care Team Providers Care Heel Top Lift Splitter Name Role Phone Robby Rajan APRN Unavailable Carlos Middleton PCP Encounter Details Care Team Description Date Type Department 08/07/2014 Emergency [facility] Emergency Department [address] [address] Social History Date Tobacco Use [...] Date End Date Medication Sig Dispensed Refills 01/15/2013 Insulin [place], 1 Package 11 Disposable, (BD INSULIN PEN [...] Before meals, at bedtime, and as needed 08/10/2014 08/15/2014 amoxicillin-clavulanate Take 1 Tab by 10 Tab 0 (AUGMENTIN) 875-125 mg mouth every tablet 12 hours for 5 days. 08/10/2014 12/29/2014 atorvastatin (LIPITOR) 20 Take 2 Tabs 90 Tab 3 mg tablet (40 mg) by mouth Daily LATE TAKE 1 TABLET BY MOUTH DAILY AT BEDTIME. 08/10/2014 08/10/2014 levofloxacin (LEVAQUIN) Take 1 Tab 5 Tab 0 500 mg tablet (500 mg) by mouth daily for 5 days. 12/29/2014 topiramate (TOPAMAX) 100 Take by mouth 0 mg tablet 100mg am, noon, & evening; 200mg at bedtime . 08/06/2014 08/10/2014 azithromycin (ZITHROMAX) Take 2 tabs 1 Package 0 250 mg tablet the first day and 1 tab days 2-5. 08/06/2014 03/11/2015 ipratropium-albuterol Take 3 mL by 90 mL 0 (DUONEB) 0.5 mg-3 mg(2.5 inhalation mg base)/3 mL Solution every 4 hours for Nebulization as needed for Shortness of Breath or Wheezing. 04/29/2014 08/10/2014 ibuprofen (MOTRIN) 800 mg Take 1 Tab by 90 Tab 2 tabletIndications: mouth every 8 Patellofemoral arthralgia hours as of left knee needed for Pain, Mild. 01/11/2015 dabigatran etexilate Take 150 mg 0 (PRADAXA) 150 mg Capsule by mouth 2 times daily. 12/29/2014 POTASSIUM CHLORIDE ORAL Take 20 mEq 0 by mouth daily agency operator. 12/29/2014 lurasidone (LATUDA) 120 Take 140 mg 0 mg Tablet tablet by mouth daily With food. 12/29/2014 venlafaxine (EFFEXOR XR) Take 225 mg 0 150 mg Extended Release by mouth 24 hour capsule daily. 12/29/2014 albuterol (PROAIR HFA) 90 Take 2 Puffs 0 mcg/Actuation HFA inhaler by inhalation every 6 hours as needed. 10/23/2013 12/29/2014 furosemide (LASIX) 40 mg TAKE 1 TABLET 60 Tab 0 tablet BY MOUTH TWICE DAILY 10/08/2013 01/20/2015 loratadine (CLARITIN) 10 Take 1 Tab by 30 Tab 5 mg tablet mouth daily. 06/17/2013 08/10/2014 atorvastatin (LIPITOR) 20 TAKE 1 TABLET 90 Tab 3 mg tablet BY MOUTH DAILY AT BEDTIME 06/17/2013 01/13/2015 omeprazole (PRILOSEC) 20 Take 1 Tab by 30 Tab 11 mg Tablet, Delayed mouth daily Release before (E.C.)Indications: Poor breakfast. appetite 12/29/2014 traZODone (DESYREL) 100 Take 300 mg 0 mg tablet by mouth daily at bedtime 3 tabs. 03/10/2013 12/29/2014 COMBIVENT RESPIMAT 20-100 INHALE 1 PUFF 4 Gram 5 mcg/actuation Inhalation BY MOUTH FOUR Aero TIMES DAILY 01/15/2013 08/10/2014 insulin aspart (NOVOLOG 15 units tid 15 mL 5 FLEXPEN) 100 unit/mL subCUT InPn 01/09/2013 08/10/2014 insulin glargine (LANTUS) 10 units hs 15 mL 11 100 unit/mL subCUTIndications: Type II or unspecified type diabetes mellitus without mention of complication, not stated as uncontrolled 11/06/2011 12/28/2014 SUMAtriptan (IMITREX) 100 TAKE 1 TABLET 8 Tab 5 mg Oral tablet BY MOUTH DIRECTED (MAY REPEAT IN 2 HOURS, MAX OF 2 TABLETS IN 24 HOURS) documented as of this encounter ED Notes * Ruel Gray RN - 08/07/2014 1:59 PM ASSOCIATE DIRECTOR OF DEVELOPMENT Unable to find pt. CIATE DIRECTOR OF DEVELOPMENT * Ruel Gray RN - 08/07/2014 1:30 PM ASSOCIATE DIRECTOR OF DEVELOPMENT Went to triage pt and unable to find her. CIATE DIRECTOR OF DEVELOPMENT documented in this encounter Plan of Treatment Not on filedocumented as of this encounter Visit Diagnoses Not on filedocumented in this encounter
--- OUTSIDE RECORDS SUMMARY | 2019-10-21 18:13 | XMS REPORT | Encounter Summary ---
Author Author [facility] Organization [facility] Address Unknown Phone Unavailable Care Team Providers Care Car Inspector Name Role Phone Robby Rajan APRN Unavailable Carlos Middleton PCP Reason for Referral * Outpatient Services (Routine) Referred By Contact Referred To Contact Status Reason Specialty Diagnoses / Procedures Lorraine Hathaway MD [address] [place] [address] Closed Diagnoses Breast lump in female P rocedures MAMMO BREAST US RT COMPLETE Reason for Visit * Outpatient Services (Routine) Referred By Contact Referred To Contact Status Reason Specialty Diagnoses / Procedures Lorraine Hathaway MD [address] [place] [address] Closed Diagnoses Breast lump in female P rocedures MAMMO BREAST US RT COMPLETE Encounter Details Care Team Description Date Type Department Lorraine Hathaway MD [address] [place] [address] 09/10/2014 Hospital [facility] F ort Encounter [facility] [address] [place] [address] Social History Date Tobacco Use [...] Date Medication Sig Dispensed Refills 01/15/2013 Insulin [place], 1 Package 11 Disposable, (BD INSULIN PEN [...] meals, at bedtime, and as needed 08/10/2014 12/29/2014 atorvastatin (LIPITOR) 20 Take 2 Tabs 90 Tab 3 mg tablet (40 mg) by mouth Daily LATE TAKE 1 TABLET BY MOUTH DAILY AT BEDTIME. 12/29/2014 topiramate (TOPAMAX) 100 Take by mouth 0 mg tablet 100mg am, noon, & evening; 200mg at bedtime . 12/29/2014 METFORMIN HCL (GLUCOPHAGE Take 1,000 mg 0 ORAL) by mouth daily . 08/06/2014 03/11/2015 ipratropium-albuterol Take 3 mL by 90 mL 0 (DUONEB) 0.5 mg-3 mg(2.5 inhalation mg base)/3 mL Solution every 4 hours for Nebulization as needed for Shortness of Breath or Wheezing. 01/11/2015 dabigatran etexilate Take 150 mg 0 (PRADAXA) 150 mg Capsule by mouth 2 times daily. 12/29/2014 POTASSIUM CHLORIDE ORAL Take 20 mEq 0 by mouth daily front maker. 12/29/2014 lurasidone (LATUDA) 120 Take 140 mg [...] Inhalation BY MOUTH FOUR Aero TIMES DAILY 11/06/2011 12/28/2014 SUMAtriptan (IMITREX) 100 TAKE 1 TABLET 8 Tab 5 mg Oral tablet BY MOUTH DIRECTED (MAY REPEAT IN 2 HOURS, MAX OF 2 TABLETS IN 24 HOURS) documented as of this encounter Plan of Treatment Not on filedocumented as of this encounter Procedures Comments Procedure Name Priority Date/Time Associated Diag nosis MAMMO BREAST US RT Routine 09/10/2014 Breast lump in female COMPLETE 3:30 PM CDT documented in this encounter Results * MAMMO BREAST US RT COMPLETE (09/10/2014 3:30 PM CDT) Specimen Impressions Performed At Impression: INTERFACE SYSTEM In the area of palpable fullness there is an echogenic mass which is most compatible with a lipoma. This is not worrisome for malignancy unless there is rapid growth/enlargement. Second lipoma in the 12:00 position 5 c m from the nipple. BI-RADS 2: Benign findings Electronically Signed By: Andrea Nolan MD, Signed On: 09/11/2014 10:16 AM Narrative Performed At Exam: Complete right breast ultrasound. INTERFACE SY STEM Indications: Right breast mass. Technique: Routine complete right breas t ultrasound with evaluation of 4 quadrants, the retroareolar region, and axilla. Findings: Clinically palpable nodule is in the 10 :00 position 3 cm from the nipple. In this area there is a well-defined subcutaneous mass which is echogenic and measures 2.3 x 2.7 x 1.2 cm. This likely reflects a lipoma. In the 12:00 position 5 cm from the nip ple there is a second echogenic mass compatible with a lipoma which measures 0.8 x 0.8 x 0.6 cm. In the 1:00 position 6 cm from the nipp le there is a peripherally echogenic mass with posterior acoustic attenuation which is compatible with a shadowing calcification. This measures 0.4 x 0.4 cm. Performing Organization Address City/State/Zipcode Ph one Number INTERFACE SYSTEM INTERFACE SYSTEM Refer to clinic/hospital department documented in this encounter Visit Diagnoses Diagnosis Breast lump in female Lump or mass in breast documented in this encounter
--- OUTSIDE RECORDS SUMMARY | 2019-10-21 18:13 | XMS REPORT | Encounter Summary ---
Author Author [facility] Organization [facility] Address Unknown Phone Unavailable Care Team Providers Care Shoe Packer Name Role Phone Robby Rajan APRN Unavailable Lorraine Hathaway MD PCP Reason for Visit * Reason Comments Headache reports its a typical migra ine for her. 3 days in duration. Hurts bilaterally in both sides of her head. Reports some nausea. Encounter Details Care Team Description Date Type Department Headache (Primary Dx) 12/28/2014 Emergency [facility] Emergency Department [address] [id number] Social History Date Tobacco Use Types Packs/Day [...] Signs Reading Time Taken Comments Vital Sign 137/104 12/28/2014 2:32 PM CDT Blood Pressure 82 12/28/2014 2:32 PM CDT Pulse 36.8 C (98.3 F) 12/28/2014 2:32 PM CDT Temperature 18 12/28/2014 2:32 PM CDT Respiratory Rate 95% 12/28/2014 2:32 PM CDT Oxygen Saturation - - Inhaled Oxygen Concentration 122.5 kg (270 lb) 12/28/2014 2:32 PM CDT Weight 157.5 cm (5' 2") 12/28/2014 2:32 PM CDT Height 49.38 12/28/2014 2:32 PM CDT Body Mass Index documented in this encounter Discharge Instructions * Attachments The following attachments cannot be sent through Care Everywhere.* HEADACHE (MONGOLIAN) documented in this encounter Medications at Time of Discharge Start Date End Date Medication Sig Dispensed Refills 01/15/2013 Insulin [place], 1 Package 11 Disposable, (BD INSULIN PEN [...] Before meals, at bedtime, and as needed 12/28/2014 04/27/2015 SUMAtriptan (IMITREX) 100 TAKE 1 TABLET 8 Tab 5 mg tablet BY MOUTH DIRECTED (MAY REPEAT IN 2 HOURS, MAX OF 2 TABLETS IN 24 HOURS). 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 12/29/2014 lurasidone (LATUDA) 120 Take 140 mg [...] Inhalation BY MOUTH FOUR Aero TIMES DAILY documented as of this encounter ED Notes * Emy Bran, CONSTANTIN - 12/28/2014 3:10 PM CDT HISTORY OF PRESENT ILLNESS Ayden Odom, a 44 y.o. female presents to the ED with a Chief Complaint o f Headache Subjective HPI Comments: Hx typical migrane for pt, she is out of imitrex and tramadol due to insurance issues. This headache for 4 days Headache Pain location: R parietal Quality: Dull Radiates to: Does not radiate Associated symptoms: nausea and vomiting Associated symptoms: no abdominal pain, no cough, no diarrhea, no dizziness, no fever and no numbness REVIEW OF SYSTEMS Review of Systems Constitutional: Negative for fever and chills. Respiratory: Negative for cough and shortness of breath. Cardiovascular: Negative for chest pain. Gastrointestinal: Positive for nausea and vomiting. Negative for abdominal pain and diarrhea. Skin: Negative for rash. Neurological: Positive for headaches. Negative for dizziness, facial asymmetry, speech difficulty, weakness, light-headedness and numbness. PAST MEDICAL HISTORY REVIEWED MEDICAL: Patient has [...] mercedes(784.0); Bipolar disorder, unspecified; Seizure disorder; Acute [place] (03/2010); and CHF (congestive heart failure). She [...] used smokeless tobacco. She reports that she currently eng ages in sexual activity and has had male partners. She reports that she does not drink alcohol or use illicit drugs. No history on file. Social History Other [...] Medications ACCU-CHEK ACTIVE CARE MISC KIT ALBUTEROL (PROAIR HFA) 90 MCG/ACTUATION HFA INHALER ATORVASTATIN (LIPITOR) 20 MG TABLET COMBIVENT RESPIMAT 20-100 MCG/ACTUATION INHALATION AERO DABIGATRAN ETEXILATE (PRADAXA) 150 MG CAPSULE FUROSEMIDE (LASIX) 40 MG TABLET IBUPROFEN (MOTRIN) 600 MG TABLET INSULIN NEEDLES, DISPOSABLE, (BD INSULIN PEN NEEDLE UF SHORT) 31 X 5/16 " MISC NDLE IPRATROPIUM-ALBUTEROL (DUONEB) 0.5 MG-3 MG(2.5 MG BASE)/3 ML SOLUTION FOR NEBUL IZATION LORATADINE (CLARITIN) 10 MG TABLET LURASIDONE (LATUDA) 120 MG TABLET TABLET METFORMIN HCL (GLUCOPHAGE ORAL) OMEPRAZOLE (PRILOSEC) 20 MG TABLET, DELAYED RELEASE (E.C.) OXYGEN-AIR DELIVERY SYSTEMS MISC LEISA POTASSIUM CHLORIDE ORAL TOPIRAMATE (TOPAMAX) 100 MG TABLET TRAZODONE (DESYREL) 100 MG TABLET VENLAFAXINE (EFFEXOR XR) 150 MG EXTENDED RELEASE 24 HOUR CAPSULE Medications Modified during this Encounter Modified Medication Previous Medication SUMATRIPTAN (IMITREX) 100 MG TABLET SUMAtriptan (IMITREX) 100 mg Oral tablet TAKE 1 TABLET BY MOUTH DIRECTED (MAY REPEAT IN 2 HOURS, MAX OF 2 TABLETS IN 24 HOURS). TAKE 1 TABLET BY MOUTH DIRECTED (MAY REPEAT IN 2 HOURS, MAX OF 2 TABLETS IN 24 HOURS) Medications Discontinued during this Encounter Objective PHYSICAL EXAM INITIAL VS BP: 137/104 mmHg (12/28/141431), Heart Rate: 82 bpm (12/28/141431), Resp: 18 ( 12/28/141431), Temp: 98.3 F (36.8 C) (12/28/141431), Temp src: Oral (12/28), SpO2: 95 % (12/28/141431), Height: 5' 2" (157.5 cm) (12/28/141431), Weight: 122.471 kg (12/28/141431), BMI (Calculated): 49.49 (12/28/141431) No LMP recorded. Patient has had a hysterectomy. Physical Exam Constitutional: She is oriented to person, place, and time. She appears well-dev eloped and well-nourished. HENT: Head: Normocephalic and atraumatic. Right Ear: External ear normal. Left Ear: External ear normal. Nose: Nose normal. Mouth/Throat: Oropharynx is clear and moist. Eyes: Pupils are equal, round, and reactive to light. Neck: Normal range of motion. Neck supple. Cardiovascular: Normal rate, regular rhythm, normal heart sounds and intact dist al pulses. No murmur heard. Pulmonary/Chest: Effort normal. Musculoskeletal: Normal range of motion. She exhibits no edema. Neurological: She is alert and oriented to person, place, and time. No cranial n erve deficit. Skin: Skin is warm and dry. Psychiatric: She has a normal mood and affect. Her behavior is normal. DIAGNOSTICS LAB: RADIOLOGY: No orders to display EKG: PROCEDURES Procedures MEDICAL DECISION MAKING AND PLAN OF halfway to rest, push fluids, primary cont c/o REEVALUATION CASE DISCUSSED Medications Administered During the ED Stay from 12/28/2014 1418 to 12/28/2014 1 512 Date/Time Order Dose Route Action 12/28/2014 1509 ketorolac (TORADOL) injection 60 mg 60 mg IM Given 12/28/2014 1509 promethazine (PHENERGAN) injection 25 mg 25 mg IM Given . New Prescriptions for this Encounter TRAMADOL (ULTRAM) 50 MG TABLET Take 1 Tab (50 mg) by mouth every 6 hours as needed for Pain. LAST VS BP: 137/104 mmHg (12/28/141431), Heart Rate: 82 bpm (12/28/141431), Resp: 18 ( 12/28/141431), Temp: 98.3 F (36.8 C) (12/28/141431), Temp src: Oral (12/28), SpO2: 95 % (12/28/141431) CLINICAL IMPRESSION Final diagnoses: [784.0] Headache (Primary) CODING Coding DISPOSITION, EDUCATION AND MEDICATION RECONCILIATION Medications reconciled. See after visit summary for patient education on discha rged patients. ATTESTATION STATEMENTS documented in this encounter Plan of Treatment Not on filedocumented as of this encounter Visit Diagnoses Diagnosis Headache - Primary documented in this encounter Administered Medications Action Date Dose Rate Site Medication Order MAR Action 12/28/2014 3:09 PM CDT 60 mg Hip, Lef t ketorolac (TORADOL) injection 60 mg Given 60 mg, IM, ONE TIME ONLY, 1 dose, Sun12/28/14 at 1500, Stat 12/28/2014 3:09 PM CDT 25 mg Hip, Lef t promethazine (PHENERGAN) injection 25 mg Given 25 mg, IM, ONE TIME ONLY, 1 dose, Sun12/28/14 at 1500, Routine documented in this encounter
--- OUTSIDE RECORDS SUMMARY | 2019-10-21 18:13 | XMS REPORT | Encounter Summary ---
Author Author [facility] Organization [facility] Address Unknown Phone Unavailable Care Team Providers Care Lead Performance Support Analyst Name Role Phone Robby Rajan APRN Unavailable Carlos Middleton PCP Reason for Referral * Outpatient Services (Routine) Referred By Contact Referred To Contact Status Reason Specialty Diagnoses / Procedures Lorraine Hathaway MD [address] [place] [address] Closed Diagnoses Breast lump on right side at 11 o'clock position P rocedures MAMMO DIGITAL DIAG BILAT Reason for Visit * Outpatient Services (Routine) Referred By Contact Referred To Contact Status Reason Specialty Diagnoses / Procedures Lorraine Hathaway MD [address] [place] [address] Closed Diagnoses Breast lump on right side at 11 o'clock position P rocedures MAMMO DIGITAL DIAG BILAT Encounter Details Care Team Description Date Type Department Lorraine Hathaway MD [address] [place] [address] 09/10/2014 Hospital [facility] ort Encounter [facility] [address] [place] [address] Social History Date Tobacco Use [...] Date Medication Sig Dispensed Refills 01/15/2013 Insulin [place], 1 Package 11 Disposable, (BD INSULIN PEN [...] Take 20 mEq 0 by mouth daily acquisition consultant. 12/29/2014 lurasidone (LATUDA) 120 Take 140 mg [...] Name Priority Date/Time Associated Diag nosis MAMMO DIAGNOSTIC Routine 09/10/2014 Breast lump o n right side BILATERAL W OR WO CAD 2:21 PM CDT at 11 o'clock p osition documented in this encounter Results * MAMMO DIGITAL DIAG BILAT (09/10/2014 2:21 PM CDT) Specimen Impressions Performed At IMPRESSION: No worrisome features for malignancy. Ult rasound will be obtained. INTERFACE SYSTEM BI-RADS 0: Incomplete - Need additional imaging evaluation and/or prior mammogram for comparison. "Mammography is a sensitive method for finding small breast cancers, but it does not detect them all and is not a substitute for careful clinica l examination. A negative mammogram should not delay in biopsy of a clinically suspicious abnormality." Statement of [employer] A patient report letter will be mailed directly to the patient within 30 days. Electronically Signed By: Andrea Nolan MD, Signed On: 09/11/2014 9:29 AM Narrative Performed At EXAM: Bilateral digital diagnostic mamm ogram with computer data detection (CAD). INTERFACE SYSTEM INDICATION: Right breast mass. COMPARISON: 2010 PROCEDURE: Bilateral MLO and CC digital mammogram views obtained with CAD. FINDINGS: The breast density is 25-50 p ercent. The morphology and distribution of glandular densities is unchanged. No evidence of spiculated ma ss or malignant calcifications present in either breast. Nipples, skin and axilla are unremarkable. There are scattered benign bilateral breast calcifications. Performing Organization Address City/State/Zipcode Ph one Number INTERFACE SYSTEM INTERFACE SYSTEM Refer to clinic/hospital department documented in this encounter Visit Diagnoses Diagnosis Breast lump on right side at 11 o'clock position Lump or mass in breast documented in this encounter
--- OUTSIDE RECORDS SUMMARY | 2019-10-21 18:13 | XMS REPORT | Encounter Summary ---
Author Author [facility] Organization [facility] Address Unknown Phone Unavailable Care Team Providers Care Presales Senior Specialist Name Role Phone King Robby Мария KILLIAN Unavailable Lorraine Hathaway MD PCP Reason for Visit * Reason Comments Medication Refill Encounter Details Care Team Description Date Type Department Lorraine Hathaway MD [address] [place] [address] 12/29/2014 Refill [facility] Primar y Care [address] [address] Social History Date Tobacco Use [...] history available. documented as of this encounter Miscellaneous Notes * Telephone Encounter - Lorraine Hathaway MD - 12/29/2014 1:49 PM CDT Needs follow-up. documented in this encounter Plan of Treatment Not on filedocumented as of this encounter Visit Diagnoses Not on filedocumented in this encounter
--- OUTSIDE RECORDS SUMMARY | 2019-10-21 18:13 | XMS REPORT | Encounter Summary ---
Author Author [facility] Organization [facility] Address Unknown Phone Unavailable Care Team Providers Care Surgical Supervisor Name Role Phone Robby Rajan APRN Unavailable Carlos Middleton PCP Reason for Referral * Outpatient Services (Routine) Referred By Contact Referred To Contact Status Reason Specialty Diagnoses / Procedures Lorraine Hathaway MD [address] [place] [address] Closed Diagnoses Breast lump on right side at 11 o'clock position P rocedures MAMMO DIGITAL DIAG BILAT Reason for Visit * Reason Comments Post Hospital Check Breast Problem lump in Rt breast Encounter Details Care Team Description Date Type Department Lorraine Hathaway MD [address] [place] [address] Breast lump on right side at 11 o'clock position (Primary Dx); Methamphetamine use; DM w/o complication type II 09/09/2014 Office Visit [facility] Primar y Care [address] [address] Social History Date Tobacco Use [...] Signs Reading Time Taken Comments Vital Sign 118/62 09/09/2014 3:22 PM CDT Blood Pressure 73 09/09/2014 3:22 PM CDT Pulse - - Temperature - - Respiratory Rate 97% 09/09/2014 3:22 PM CDT Oxygen Saturation - - Inhaled Oxygen Concentration 122.9 kg (271 lb) 09/09/2014 3:22 PM CDT Weight 157.5 cm (5' 2") 09/09/2014 3:22 PM CDT Height 49.57 09/09/2014 3:22 PM CDT Body Mass Index documented in this encounter Progress Notes * Lorraine Hathaway MD - 09/09/2014 3:32 PM CDT HISTORY OF PRESENT ILLNESS Ayden Odom, a 44 y.o. female. Subjective HPI Patient was discharged from hospital about a month ago for COPD. Has a strong f amily history of breast cancer. Found a lump in her right breast about a week. Needs to establish for PCP. REVIEW OF SYSTEMS Review of Systems Constitutional: Negative for fever, chills and unexpected weight change. Respiratory: Negative for shortness of breath. Cardiovascular: Negative for chest pain and leg swelling. Objective PHYSICAL EXAM BP 118/62 | Pulse 73 | Ht 5' 2" (1.575 m) | Wt 271 lb (122.925 kg) | BMI 49. 55 kg/m2 | SpO2 97% Physical Exam Constitutional: She is oriented to person, place, and time. She appears well-dev eloped and well-nourished. No distress. Cardiovascular: Normal rate and regular rhythm. No murmur heard. Pulmonary/Chest: Effort normal and breath sounds normal. Neurological: She is alert and oriented to person, place, and time. Psychiatric: She has a normal mood and affect. Her behavior is normal. Judgment and thought content normal. Assessment ASSESSMENT and PLAN: ICD-9-CM ICD-10-CM 1. Breast lump on right side at 11 o'clock position 611.72 N63 MAMMO DIGITAL LIZBETH G BILAT 2. Methamphetamine use 305.70 F15.10 3. DM w/o complication type II 250.00 E11.9 HEMOGLOBIN A1C LIPID PANEL COMPREHENSIVE METABOLIC PANEL Will get mammogram for breast mass. Check labs for diabetes. documented in this encounter Plan of Treatment Not on filedocumented as of this encounter Results * COMPREHENSIVE METABOLIC PANEL (04/27/2015 8:06 AM MAINTENANCE APPRENTICE) [facility] [address] SODIUM 139 134 - 145 mmol/L [facility] [place] POTASSIUM 3.8 3.5 - 5.1 mmol/L [facility] [place] CHLORIDE 106 98 - 107 mmol/L [facility] [place] [facility] CO2 23 22 - 31 mmol/L [facility] - [facility] REBA CALCIUM 8.5 8.5 - 10.1 mg/dL [facility] - [facility] REBA BUN 13 7 - 20 mg/dL [facility] REBA CREATININE 0.98 (H) 0.51 - 0.95 mg/dL [facility] - [place] GLUCOSE 128 (H) 70 - 100 mg/dL [facility] - [facility] REBA TOTAL PROTEIN 7.4 6.4 - 8.2 g/dL [facility] [place] ALBUMIN 4.0 3.4 - 5.0 g/dL [facility] - [place] BILIRUBIN TOTAL 0.4 <=1.1 mg/dL [facility] - [facility] REBA ALKALINE 117 (H) 46 - 116 U/L [facility] PHOSPHATASE LABORATORY SERVICES - [place] AST 21 10 - 40 U/L [facility] ALT 29 14 - 63 U/L [facility] - [place] GFR >60 >=60 mL/min/1.73 sq [facility] Comment: meter LABORATORY eGFR has not been validated [facility] for use in the elderly (> [...] result. GFR, >60 >=60 mL/min/1.73 sq [facility] meter [facility] - [place] ANION GAP 10 4 - 20 mmol/L [facility] SERVICES - [facility] REBA Specimen Blood Performing Organization Address City/State/Zipcode Ph one Number [facility] CLIA# [id number] [place] [address] - [address] * LIPID PANEL (04/27/2015 8:06 AM MAINTENANCE APPRENTICE) CHOLESTEROL 176 <200 mg/dL [facility] LAB[facility] TRIGLYCERIDE 250 (H) <150 mg/dL [facility] [place] HDL 40 40 - 59 mg/dL [facility] [place] LDL CALCULATED 86 <100 mg/dL [facility] NON-HDL 136 (H) <130 mg/dL [facility] CHOLESTEROL [facility] - [place] Specimen Blood Narrative Performed At TOTAL CHOLESTEROL mg/dL [facility] LAB[facility]ORY Desirable <200 SERVICES - [facility] high 200-239 REBA High >=240 TRIGLYCERIDES mg/dL [...] Based on AHA/NCEP Guidelines Performing Organization Address City/[facility] Ph one [facility] LABORATORY SERVICES CLIA# [id number] [place] [address] * HEMOGLOBIN A1C (04/27/2015 8:06 AM MAINTENANCE APPRENTICE) HEMOGLOBIN A1C 5.4 0.0 - 6.0 % [facility] EST. AVG 108 mg/dL [facility] GLUCOSE, A1C [facility]ORY [facility] - [place] Specimen Blood Performing Organization Address City/[facility] Ph one Judie [facility] IA# [id number] [place], [place] [address] * MAMMO DIGITAL DIAG BILAT (09/10/2014 2:21 [...] of a clinically suspicious abnormality." Statement of [employer] A patient report [...] on right side at 11 o'clock position - Primary Lump or mass in breast Methamphetamine use Nondependent amphetamine or related act ing sympathomimetic abuse, unspecified DM w/o complication type II Type II or unspecified type diabetes me llitus without mention of complication, not stated as uncontrolled documented in this encounter
--- OUTSIDE RECORDS SUMMARY | 2019-10-21 18:13 | XMS REPORT | Encounter Summary ---
Author Author [facility] Organization [facility] Address Unknown Phone Unavailable Care Team Providers [employer] Consultant Name Role Phone Robby Rajan APRN Unavailable Lorraine Hathaway MD PCP Reason for Visit * Reason Comments Fall Encounter Details Care Team Description Date Type Department MagnusyartEvelio MD [address] [place] [address] Low back pain (Primary Dx); Right leg pain; Fall at home 09/21/2014 Emergency [facility] Emergency Department [address] [address] Social History Date Tobacco Use [...] Signs Reading Time Taken Comments Vital Sign 112/76 09/21/2014 10:00 PM CDT Blood Pressure - - Pulse 36.8 C (98.2 F) 09/21/2014 10:00 PM CDT Temperature 18 09/21/2014 10:00 PM CDT Respiratory Rate 98% 09/21/2014 10:00 PM CDT Oxygen Saturation - - Inhaled Oxygen Concentration 115.2 kg (254 lb) 09/21/2014 10:00 PM CDT Weight 157.5 cm (5' 2") 09/21/2014 10:00 PM CDT Height 46.46 09/21/2014 10:00 PM CDT Body Mass Index documented in this encounter Discharge Instructions * Instructions* Evelio Lewis MD - 09/21/[address] Hathaway in clinic this week for continued pain and problems THANK YOU FOR CHOOSING THE [facility]! Our goal is to provide you with [...] continually strive to improve our customers experience! Follow-up with a physician of your choice as needed. [facility]) is available Sunday through Sun 7:00am to 7:00pm. [facility] is available Sunday 10:00am to 7:00pm and Sunday 8:00am to 5:00pm. [facility] is available Sunday through Sunday from 8:00am to 5:00 pm. [facility] is available Sunday through Sunday from 7:00am to 7: 00pm. [facility] is available Sunday and Sunday from 7:00am to 7:00pm. You can reach any of the locations by dialiing [phone] or [phone]. Thank you for choosing [facility] for your health care needs. * Attachments The following attachments cannot be sent through Care Everywhere.* BACK PAIN (AMHARIC) * TRAMADOL (AMHARIC) * LEG PAIN (AMHARIC) documented in this encounter Medications at Time of Discharge Start Date End Date Medication Sig Dispensed Refills 01/15/2013 Insulin Hammond, 1 Package 11 Disposable, (BD INSULIN PEN [...] Before meals, at bedtime, and as needed 09/21/2014 09/23/2014 traMADol (ULTRAM) 50 mg Take 1 Tab 6 Tab 0 tablet (50 mg) by mouth every 6 hours as needed for Pain, Severe. 09/21/2014 09/24/2014 traMADol (ULTRAM) 50 mg Take 1 Tab 15 Tab 0 tablet (50 mg) by mouth every 6 hours as needed for Pain or Pain, Severe. 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 12/29/2014 lurasidone (LATUDA) 120 Take 140 [...] ED Notes * Evelio Lewis MD - 09/21/2014 11:25 PM CDT HISTORY OF PRESENT ILLNESS Ayden Odom, a 44 y.o. female presents to the ED with a Chief Complaint o f Fall Subjective HPI Comments: She has chronic recurrent falls. She reports falling and having pa in so she came in to be seen. She was worried that this pain was going to flare up her sciatica and was asking repeatedly for something for pain. She does report Toradol helps from a shot standpoint but that for home hydrocodo ne and tramadol have both been given in the past for other episodes of pain History provided by: The patient Arrived by: Private vehicle Fall Fall occurred: While walking Height of fall: Standing height Pain Severity: Severe Chronicity: Recurrent Ambulatory after fall?: Yes Entrapped after fall?: No Drug use?: No Alcohol use?: No Associated symptoms: no abdominal pain, no diarrhea, no fever, no headaches, no hematuria, no loss of consciousness, no nausea, no numbness, no tingling, no vis ual change and no vomiting Worsened by: Activity Treatments tried: Nothing REVIEW OF SYSTEMS Review of Systems Constitutional: Negative for fever and chills. HENT: Negative for trouble swallowing. Respiratory: Negative for shortness of breath. Cardiovascular: Negative for chest pain. Gastrointestinal: Negative for nausea, vomiting and abdominal pain. Genitourinary: Negative for dysuria. Musculoskeletal: Positive for back pain (chronic back pain). Negative for joint swelling and gait problem. Skin: Negative for rash. Neurological: Negative for weakness, numbness and headaches. Psychiatric/Behavioral: The patient is nervous/anxious. PAST MEDICAL HISTORY [...] mercedes(784.0); Bipolar disorder, unspecified; Seizure disorder; Acute CA (03/2010); and CHF (congestive heart failure). She [...] HOME MEDICATIONS Discharge Medication List as of 09/21/2014 11:25 PM START taking these medications Details !! traMADol (ULTRAM) 50 mg tablet Take 1 Tab (50 mg) by mouth every 6 hours as n eeded for Pain, Severe., Disp-6 Tab, R-0 !! traMADol (ULTRAM) 50 mg tablet Take 1 Tab (50 mg) by mouth every 6 hours as n eeded for Pain or Pain, Severe., Disp-15 Tab, R-0 !! - Potential duplicate medications found. Please discuss with provider. CONTINUE these medications which have NOT CHANGED Details atorvastatin (LIPITOR) 20 mg tablet Take 2 Tabs (40 mg) by mouth Daily LATE TAKE 1 TABLET BY MOUTH DAILY AT BEDTIME., Disp-90 Tab, R-3 topiramate (TOPAMAX) 100 mg tablet Take by mouth 100mg am, noon, & evening; 200mg at bedtime . METFORMIN HCL (GLUCOPHAGE ORAL) Take 1,000 mg by mouth daily . ipratropium-albuterol (DUONEB) 0.5 mg-3 mg(2.5 mg base)/3 mL Solution for Nebuli zation Take 3 mL by inhalation every 4 hours as needed for Shortness of Breath o r Wheezing., Disp-90 mL, R-0 dabigatran etexilate (PRADAXA) 150 mg Capsule Take 150 mg by mouth 2 times daily . 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 lurasidone (LATUDA) 120 mg Tablet tablet Take 140 mg by mouth daily With food. venlafaxine (EFFEXOR XR) 150 mg Extended Release 24 hour capsule Take 225 mg by mouth daily. ibuprofen (MOTRIN) 600 mg tablet Take 600 mg by mouth every 6 hours as needed. albuterol (PROAIR HFA) 90 mcg/Actuation HFA inhaler Take 2 Puffs by inhalation e very 6 hours as needed. furosemide (LASIX) 40 mg tablet TAKE 1 TABLET BY MOUTH TWICE DAILY, Disp-60 Tab, R-0 loratadine (CLARITIN) 10 mg tablet Take 1 Tab by mouth daily., Disp-30 Tab, R-5 omeprazole (PRILOSEC) 20 mg Tablet, Delayed Release (E.C.) Take 1 Tab by mouth d aily before breakfast., Disp-30 Tab, R-11 traZODone (DESYREL) 100 mg tablet Take 300 mg by mouth daily at bedtime 3 tabs. COMBIVENT RESPIMAT 20-100 mcg/actuation Inhalation Aero INHALE 1 PUFF BY MOUTH F OUR TIMES DAILY, Disp-4 Gram, R-5 Insulin Hammond, Disposable, (BD INSULIN PEN NEEDLE UF SHORT) 31 X 5/16 " [facility] N dle Disp-1 Package, R-11 SUMAtriptan (IMITREX) 100 mg Oral tablet TAKE 1 TABLET BY MOUTH DIRECTED (MAY REPEAT IN 2 HOURS, MAX OF 2 TABLETS IN 24 HOURS), Disp-8 Tab, R-5 Oxygen-Air Delivery Systems [facility] Leisa Take 2 L/min by inhalation daily at bedtim e. ACCU-CHEK ACTIVE CARE [facility] Kit by See Admin Instructions route. Before meals, at bedtime, and as needed Objective PHYSICAL EXAM INITIAL VS BP: 112/76 mmHg (09/21/142199), Heart Rate (Monitored): 84 bpm (09/21/142199), Resp: 18 (09/21/142199), Temp: 98.2 F (36.8 C) (09/21/142199), Temp src: Oral (09/21/142199), SpO2: 98 % (09/21/142199), Height: 5' 2" (157.5 cm) (09/03), Weight: 115.214 kg (09/21/142199), BMI (Calculated): 46.55 (2199) No LMP recorded. Patient has had a hysterectomy. Physical Exam Constitutional: She is oriented to person, place, and time. She appears well-dev eloped and well-nourished. She is active and cooperative. Non-toxic appearance. No distress. HENT: Head: Normocephalic and atraumatic. Cardiovascular: Normal rate, regular rhythm and intact distal pulses. Pulmonary/Chest: Effort normal and breath sounds normal. Musculoskeletal: She exhibits tenderness. Lumbar back: She exhibits tenderness and pain. She exhibits no swelling, no edema, no deformity and no laceration. Neurological: She is alert and oriented to person, place, and time. GCS eye subs core is 4. GCS verbal subscore is 5. GCS motor subscore is 6. Skin: Skin is warm and dry. She is not diaphoretic. Psychiatric: Her mood appears anxious. Nursing note and vitals reviewed. DIAGNOSTICS LAB: RADIOLOGY: XR LUMBAR SPINE 2 OR 3 VW Radiologist Impression EXAM: Lumbar spine series there are views INDICATION: 44-year-old female with low back pain following fall. COMPARISONS: Right hip films obtained today. FINDINGS: There is a transitional vertebrae at the junction with 4 normal lumbar vertebrae below this level. The patient has IVC filter in place. Or cluster clips suggesting prior cholecystectomy. There is volume broad and hardware extending through the right femur. The lumbar alignment is anatomic. The lumbar vertebral body heights and disk spaces are preserved. Nothing for acute fracture is seen. The SI joints are intact. IMPRESSION IMPRESSION: Lumbar spine series days for acute fracture. IVC filter. Cholecystectomy. Right femur rodding. Electronically Signed By: Noel Villatoro MD, Signed On: 09/21/2014 10:38 PM XR HIP 2+ VW RIGHT Radiologist Impression EXAM: Unilateral right hip 2 views. INDICATION: Right hip right hip pain following fall.. COMPARISONS: Previous views of the left hip and femur performed June 01, 2014. FINDINGS: Two views of the right hip demonstrate placement of a long IM rosio through the femur stabilizing a now well-healed oblique fracture of the midshaft. There has been placement of an additional orthopedic screw lateral to the hip. There is lucencies over the hip suggesting there may have been previous compression screw and sideplate placement which was subsequently removed. The visualized right hemipelvis is unremarkable.. IMPRESSION IMPRESSION: Right femoral IM rosio unchanged in position. No acute fracture visualized. Electronically Signed By: Noel Villatoro MD, Signed On: 09/21/2014 10:35 PM EKG: PROCEDURES Procedures MEDICAL DECISION MAKING AND PLAN OF CARE xrays do not show fracture or acute injury. Treat for pain with shot of toradol here and send home with tramadol and script. Follow up with pcp in next few days if continued pain or wanting more pain medicine REEVALUATION CASE DISCUSSED Medications Administered During the ED Stay from 09/21/2014 2154 to 09/22/2014 0 049 Date/Time Order Dose Route Action 09/21/2014 2945 ketorolac (TORADOL) injection 60 mg 60 mg IM Given Discharge Medication List as of 09/21/2014 11:25 PM START taking these medications Details !! traMADol (ULTRAM) 50 mg tablet Take 1 Tab (50 mg) by mouth every 6 hours as n eeded for Pain, Severe., Disp-6 Tab, R-0 !! traMADol (ULTRAM) 50 mg tablet Take 1 Tab (50 mg) by mouth every 6 hours as n eeded for Pain or Pain, Severe., Disp-15 Tab, R-0 !! - Potential duplicate medications found. Please discuss with provider. CONTINUE these medications which have NOT CHANGED Details atorvastatin (LIPITOR) 20 mg tablet Take 2 Tabs (40 mg) by mouth Daily LATE TAKE 1 TABLET BY MOUTH DAILY AT BEDTIME., Disp-90 Tab, R-3 topiramate (TOPAMAX) 100 mg tablet Take by mouth 100mg am, noon, & evening; 200mg at bedtime . METFORMIN HCL (GLUCOPHAGE ORAL) Take 1,000 mg by mouth daily . ipratropium-albuterol (DUONEB) 0.5 mg-3 mg(2.5 mg base)/3 mL Solution for Nebuli zation Take 3 mL by inhalation every 4 hours as needed for Shortness of Breath o r Wheezing., Disp-90 mL, R-0 dabigatran etexilate (PRADAXA) 150 mg Capsule Take 150 mg by mouth 2 times daily . 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 lurasidone (LATUDA) 120 mg Tablet tablet Take 140 mg by mouth daily With food. venlafaxine (EFFEXOR XR) 150 mg Extended Release 24 hour capsule Take 225 mg by mouth daily. ibuprofen (MOTRIN) 600 mg tablet Take 600 mg by mouth every 6 hours as needed. albuterol (PROAIR HFA) 90 mcg/Actuation HFA inhaler Take 2 Puffs by inhalation e very 6 hours as needed. furosemide (LASIX) 40 mg tablet TAKE 1 TABLET BY MOUTH TWICE DAILY, Disp-60 Tab, R-0 loratadine (CLARITIN) 10 mg tablet Take 1 Tab by mouth daily., Disp-30 Tab, R-5 omeprazole (PRILOSEC) 20 mg Tablet, Delayed Release (E.C.) Take 1 Tab by mouth d aily before breakfast., Disp-30 Tab, R-11 traZODone (DESYREL) 100 mg tablet Take 300 mg by mouth daily at bedtime 3 tabs. COMBIVENT RESPIMAT 20-100 mcg/actuation Inhalation Aero INHALE 1 PUFF BY MOUTH F OUR TIMES DAILY, Disp-4 Gram, R-5 Insulin Hammond, Disposable, (BD INSULIN PEN NEEDLE UF SHORT) 31 X 5/16 " Misc N dle Disp-1 Package, R-11 SUMAtriptan (IMITREX) 100 mg Oral tablet TAKE 1 TABLET BY MOUTH DIRECTED (MAY REPEAT IN 2 HOURS, MAX OF 2 TABLETS IN 24 HOURS), Disp-8 Tab, R-5 Oxygen-Air Delivery Systems Misc Leisa Take 2 L/min by inhalation daily at bedtim e. ACCU-CHEK ACTIVE CARE Misc Kit by See Admin Instructions route. Before meals, at bedtime, and as needed LAST VS BP: 112/76 mmHg (09/21/142199), Heart Rate (Monitored): 84 bpm (09/21/142199), Resp: 18 (09/21/142199), Temp: 98.2 F (36.8 C) (09/21/142199), Temp src: Oral (09/21/142199), SpO2: 98 % (04/20/15 2200) CLINICAL IMPRESSION Final diagnoses: [724.2] Low back pain (Primary) [729.5] Right leg pain [E888.9, E849.0] Fall at home CODING MDM Coding Reviewed: previous chart and vitals Reviewed previous: x-ray Interpretation: SP02 and x-ray I have reviewed nursing notes and agree unless otherwise mentioned. DISPOSITION, EDUCATION AND MEDICATION RECONCILIATION Medications reconciled. See after visit summary for patient education on discha rged patients. documented in this encounter Plan of Treatment Not on filedocumented as of this encounter Procedures Comments Procedure Name Priority Date/Time Associated Diag nosis XR LUMBAR SPINE 2 OR 3 VW Stat 09/21/2014 10:27 PM CDT XR HIP 2 OR 3 VIEWS RT Stat 09/21/2014 10:26 PM CDT documented in this encounter Results * XR LUMBAR SPINE 2 OR 3 VW (09/21/2014 10:27 PM CDT) Specimen Impressions Performed At IMPRESSION: INTERFACE SYSTEM Lumbar spine series days for acute frac ture. IVC filter. Cholecystectomy. Right femu r rodding. Electronically Signed By: Noel Villatoro MD, Signed On: 09/21/2014 10:38 PM Narrative Performed At EXAM: INTERFACE SYSTEM Lumbar spine series there are views INDICATION: 44-year-old female with low back pain f ollowing fall. COMPARISONS: Right hip films obtained today. FINDINGS: There is a transitional vertebrae at th e junction with 4 normal lumbar vertebrae below this level. The patient has IVC filter in place. Or clu ster clips suggesting prior cholecystectomy. There is volume broad and hardware extending through the righ t femur. The lumbar alignment is anatomic. The lumbar vertebral body heights and d isk spaces are preserved. Nothing for acute fracture is seen. The SI joints are intact. Procedure Note Interface, [facility] Incoming Radiology Results - 09/21/2014 10:42 PM CDT EXAM: Lumbar spine series there are views INDICATION: 44-year-old female with low back pain fo llowing fall. COMPARISONS: Right hip films obtained today. FINDINGS: There is a transitional vertebrae at the junction with 4 normal lumbar vertebrae below this level. The patient has IVC filter in place. Or cluster clips suggesting prior cholecystectomy. There is volume broad and hardware extending through the right femur. The lumbar alignment is anatomic. The lumbar vertebral body heights and disk spaces are preserved. Nothing for acute fracture is seen. The SI joints are intact. IMPRESSION IMPRESSION: Lumbar spine series days for acute fracture. IVC filter. Cholecystectomy. Right femur rodding. Electronically Signed By: Noel Villatoro MD, Signed On: 09/21/2014 10:38 PM Performing Organization Address [facility] Ph one Number INTERFACE SYSTEM INTERFACE SYSTEM Refer to clinic/hospital department * XR HIP 2+ VW RIGHT (09/21/2014 10:26 PM CDT) Specimen Impressions Performed At IMPRESSION: INTERFACE SYSTEM Right femoral IM rosio unchanged in posit ion. No acute fracture visualized. Electronically Signed By: Noel Villatoro MD, Signed On: 09/21/2014 10:35 PM Narrative Performed At EXAM: INTERFACE SYSTEM Unilateral right hip 2 views. INDICATION: Right hip right hip pain following fall .. COMPARISONS: Previous views of the left hip and femu r performed June 01, 2014. FINDINGS: Two views of the right hip demonstrate placement of a long IM rosio through the femur stabilizing a now well-healed obl ique fracture of the midshaft. There has been placement of an addition al orthopedic screw lateral to the hip. There is lucencies over the hip suggest ing there may have been previous compression screw and sideplate placement which was subsequently removed. The visualized right hemipelvis is unre markable.. Procedure Note Interface, [facility] Incoming Radiology Results - 09/21/2014 10:39 PM CDT EXAM: Unilateral right hip 2 views. INDICATION: Right hip right hip pain following fall.. COMPARISONS: Previous views of the left hip and femur performed June 01, 2014. FINDINGS: Two views of the right hip demonstrate placement of a long IM rosio through the femur stabilizing a now well-healed oblique fracture of the midshaft. There has been placement of an additional orthopedic screw lateral to the hip. There is lucencies over the hip suggesting there may have been previous compression screw and sideplate placement which was subsequently removed. The visualized right hemipelvis is unremarkable.. IMPRESSION IMPRESSION: Right femoral IM rosio unchanged in position. No acute fracture visualized. Electronically Signed By: Noel Villatoro MD, Signed On: 09/21/2014 10:35 PM Performing Organization Address [facility]/State/Zipcode Ph one Number INTERFACE SYSTEM INTERFACE SYSTEM Refer to clinic/hospital department documented in this encounter Visit Diagnoses Diagnosis Low back pain - Primary Lumbago Right leg pain Pain in limb Fall at home Unspecified fall documented in this encounter Administered Medications Action Date Dose Rate Site Medication Order MAR Action 09/21/2014 11:23 PM CDT 60 mg Hip, Rig ht ketorolac (TORADOL) injection 60 mg Given 60 mg, IM, ONE TIME ONLY, 1 dose, 09/21/14 at 2330, Routine documented in this encounter
--- OUTSIDE RECORDS SUMMARY | 2019-10-21 18:13 | XMS REPORT | Encounter Summary ---
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 Timing: Constant Progression: Worsening Chronicity: New Smoker: yes Context: smoke exposure and upper respiratory infection Associated symptoms: headaches, rhinorrhea, shortness of breath and wheezing Associated symptoms: no chest pain, no chills, no diaphoresis, no ear pain, no f ever, no myalgias, no rash, no sinus congestion, no sore throat and no weight lo ss History provided by: The patient REVIEW OF SYSTEMS Review of Systems Constitutional: Negative for fever, chills, weight loss and diaphoresis. HENT: Positive for rhinorrhea. Negative for ear pain and sore throat. Respiratory: Positive for cough, shortness of breath and wheezing. Cardiovascular: Negative for chest pain. Gastrointestinal: Positive for nausea and vomiting. Negative for abdominal pain and diarrhea. Genitourinary: Suprapubic cath Musculoskeletal: Negative for myalgias. Skin: Negative for rash. Neurological: Positive for headaches. PAST MEDICAL HISTORY REVIEWED MEDICAL: Patient has [...] mercedes(784.0); Bipolar disorder, unspecified; Seizure disorder; Acute TN (03/2010); and CHF (congestive heart failure). She [...] has been smoking Cigarettes. She has a 54 pack-year smoking h istory. She has never used smokeless tobacco. She reports that she currently eng ages in sexual activity and has had male partners. She reports that she does not drink alcohol or use illicit drugs. PROBLEM LIST: Patient has Unspecified Asthma; Bipolar [...] arthralgia of left knee; COPD with exacerbation; and Vomiting on her problem list. ALLERGIES Aloe vera; Doxycycline; Tape; Xanax; and Zofran HOME MEDICATIONS Patient's Home Medications Current Home Medications ACCU-CHEK ACTIVE CARE MISC KIT ALBUTEROL (PROAIR HFA) 90 MCG/ACTUATION HFA INHALER ATORVASTATIN (LIPITOR) 20 MG TABLET AZITHROMYCIN (ZITHROMAX) 250 MG TABLET COMBIVENT RESPIMAT 20-100 MCG/ACTUATION INHALATION AERO DABIGATRAN ETEXILATE (PRADAXA) 150 MG CAPSULE FUROSEMIDE (LASIX) 40 MG TABLET IBUPROFEN (MOTRIN) 600 MG TABLET IBUPROFEN (MOTRIN) 800 MG TABLET INSULIN ASPART (NOVOLOG FLEXPEN) 100 UNIT/ML SUBCUT INPN INSULIN GLARGINE (LANTUS) 100 UNIT/ML SUBCUT INSULIN NEEDLES, DISPOSABLE, (BD INSULIN PEN NEEDLE UF SHORT) 31 X 5/16 " MISC NDLE IPRATROPIUM-ALBUTEROL (DUONEB) 0.5 MG-3 MG(2.5 MG BASE)/3 ML SOLUTION FOR NEBUL IZATION LORATADINE (CLARITIN) 10 MG TABLET LURASIDONE (LATUDA) 120 MG TABLET TABLET OMEPRAZOLE (PRILOSEC) 20 MG TABLET, DELAYED RELEASE (E.C.) OXYGEN-AIR DELIVERY SYSTEMS MISC LEISA POTASSIUM CHLORIDE ORAL PREDNISONE (DELTASONE) 10 MG TABLET SUMATRIPTAN (IMITREX) 100 MG ORAL TABLET TOPIRAMATE (TOPAMAX) 100 MG ORAL TABLET TRAZODONE (DESYREL) 100 MG TABLET VENLAFAXINE (EFFEXOR XR) 150 MG EXTENDED RELEASE 24 HOUR CAPSULE Medications Modified during this Encounter Medications Discontinued during this Encounter Objective PHYSICAL EXAM INITIAL VS BP: 131/87 mmHg (08/07/14 1448), Heart Rate (Monitored): 106 bpm (08/07/14 144) , Resp: 20 (08/07/14 144), Temp: 99.5 F (37.5 C) (08/07/14 144), Temp src: Tympanic (08/07/14 144), SpO2: 95 % (08/07/14 144), Height: 5' 2" (157.5 cm) (08/07/14 1448), Weight: 117 kg (08/07/14 1448), BMI (Calculated): 47.28 ( 144) No LMP recorded. Patient has had a hysterectomy. Physical Exam Constitutional: She is oriented to person, place, and time. She appears well-dev eloped and well-nourished. HENT: Head: Normocephalic and atraumatic. Mouth/Throat: Oropharynx is clear and moist. Eyes: Pupils are equal, round, and reactive to light. Neck: Normal range of motion. Neck supple. Cardiovascular: Normal rate, regular rhythm and normal heart sounds. Pulmonary/Chest: No accessory muscle usage. Tachypnea noted. No respiratory dist ress. She has decreased breath sounds. She has wheezes. She exhibits no tenderne ss. Abdominal: Soft. Bowel sounds are normal. Suprapubic cath Musculoskeletal: Normal range of motion. Neurological: She is alert and oriented to person, place, and time. Skin: Skin is warm and dry. Psychiatric: She has a normal mood and affect. Her behavior is normal. DIAGNOSTICS LAB: Results for orders placed during the hospital encounter of 08/07/14 (from the [facility] 24 hour(s)) CBC WITH DIFFERENTIAL Result Value Ref Range WBC 5.5 3.0-10.4 K/uL RBC 4.52 3.77-4.97 M/uL HEMOGLOBIN 14.2 11.9-15.0 g/dL HEMATOCRIT 43.3 34.4-43.6 % MCV 95.9 79.0-100.0 fL MCH 31.5 28.0-34.0 pg MCHC 32.8 31.0-35.0 g/dL RDW 13.1 11.5-15.1 % PLATELETS 115 (*) 148-408 K/uL MPV 9.7 7.4-10.6 fL COMPREHENSIVE METABOLIC PANEL Result Value Ref Range SODIUM 138 134-145 mmol/L POTASSIUM 3.7 3.5-5.1 mmol/L CHLORIDE 103 98-107 mmol/L CO2 24 22-31 mmol/L CALCIUM 8.0 (*) 8.5-10.1 mg/dL BUN 15 7-20 mg/dL CREATININE 0.92 0.51-0.95 mg/dL GLUCOSE 104 (*) 70-100 mg/dL TOTAL PROTEIN 7.1 6.4-8.2 g/dL ALBUMIN 3.6 3.4-5.0 g/dL BILIRUBIN TOTAL 0.3 <=1.1 mg/dL ALKALINE PHOSPHATASE 130 40-136 U/L AST 24 10-40 U/L ALT 30 14-63 U/L GFR >60 >=60 mL/min/1.73 sq meter GFR, >60 >=60 mL/min/1.73 sq meter ANION GAP 11 4-20 mmol/L TROPONIN Result Value Ref Range TROPONIN I 0.04 <0.40 ng/mL MANUAL DIFFERENTIAL Result Value Ref Range ADJUSTED WBC 5.5 3.0-10.4 K/uL SEGMENTED NEUTROPHILS 25 (*) 30-68 % BANDS RELATIVE 42 (*) 0-22 % LYMPHOCYTES RELATIVE 25 14-50 % MONOCYTES RELATIVE 7 0-11 % BASOPHILS RELATIVE 1 0-2 % PLATELET EST. Adequate NEUTROPHILS ABSOLUTE COUNT 3.69 1.30-7.60 K/uL LYMPHOCYTES ABSOLUTE 1.38 0.60-4.90 K/uL MONOCYTES ABSOLUTE 0.39 0.10-0.90 K/uL BASOPHILS ABSOLUTE 0.06 0.00-0.10 K/uL RBC MORPHOLOGY Normal TOTAL CELLS COUNTED IN DIFF 100 RADIOLOGY: EKG: NSR no changes PROCEDURES Procedures Peak flow pre and post treatment, < 200 Expected 450. MEDICAL DECISION MAKING AND PLAN OF CARE sats on RA 90-91%, continued wheezing, attempts at oral steroids in ed resulted in vomiting. Admit, hydrate, resume home meds, IV steroids, zithromax REEVALUATION above CASE DISCUSSED lesvia Lundberg mpg Medications Administered During the ED Stay from 08/07/2014 1440 to 08/07/2014 1 714 Date/Time Order Dose Route Action 08/07/2014 1513 ipratropium-albuterol (DUONEB) 0.5 mg-3 mg(2.5 mg base)/3 mL i nhalation solution 3 mL 3 mL Inhalation Given 08/07/2014 1619 sodium chloride 0.9% bolus solution 1,000 mL 0 mL IV Stopped 08/07/2014 1513 sodium chloride 0.9% bolus solution 1,000 mL 1,000 mL IV New B ag 08/07/2014 1515 prochlorperazine (COMPAZINE) injection 5 mg 5 mg IV Given 08/07/2014 1518 methylPREDNISolone sodium succinate (SOLU-MEDROL) injection 12 5 mg 125 mg IV Given 08/07/2014 1606 predniSONE (DELTASONE) tablet 40 mg 40 mg Oral Given 08/07/2014 1607 azithromycin (ZITHROMAX) tablet 250 mg 250 mg Oral Given 08/07/2014 1621 ondansetron (ZOFRAN ODT) tablet 4 mg 4 mg Oral Given . New Prescriptions for this Encounter LAST VS BP: 131/87 mmHg (08/07/141447), Heart Rate (Monitored): 106 bpm (08/07/141447) , Resp: 20 (08/07/141447), Temp: 99.5 F (37.5 C) (08/07/141447), Temp src: Tympanic (08/07/141447), SpO2: 95 % (08/07/14 1448) CLINICAL IMPRESSION Final diagnoses: [491.21] COPD with exacerbation (Primary) [787.03] Vomiting CODING Coding DISPOSITION, EDUCATION AND MEDICATION RECONCILIATION Medications reconciled. See after visit summary for patient education on discha rged patients. GENCY DEPARTMENT COORDINATOR * Lilliam Nguyễn RN - 08/07/2014 4:26 PM EMERGENCY DEPARTMENT COORDINATOR Bed request called to the final inspection supervisor at this time. GENCY DEPARTMENT COORDINATOR * Lilliam Nguyễn RN - 08/07/2014 3:15 PM EMERGENCY DEPARTMENT COORDINATOR Pt placed on 2L oxygen per NC, oxygen sat 90-91% on room air. GENCY DEPARTMENT COORDINATOR documented in this encounter Miscellaneous Notes * Care Juwan - Renay Mcdermott RN - 08/10/2014 10:28 AM CDT Problem: Fall/Trauma/Injury Risk (Adult) Goal: Fall/Trauma/Injury Risk: Absence of Trauma/Injury/Falls Patient will demonstrate the desired outcomes. Outcome: Adequate for Discharge Date Met: 08/10/14 * Fide Echeverria - Renay Mcdermott RN - 08/10/2014 10:27 AM CDT Problem: COPD, Chronic Bronchitis/Emphysema (Adult) Goal: Prevent/Manage Potential Problems Signs and symptoms of listed problems will be absent or manageable. Outcome: Adequate for Discharge Date Met: 08/10/14 * Fide Echeverria - Renay Mcdermott RN - 08/10/2014 10:27 AM CDT Problem: General Plan of Care (Adult, Obstetrics) Goal: Identify Discharge Needs Patients discharge needs are identified. Outcome: Adequate for Discharge Date Met: 08/10/14 * Fide Echeverria - Renay Mcdermott RN - 08/10/2014 10:27 AM CDT Problem: General Plan of Care (Adult, Obstetrics) Goal: Plan of Care Review (Adult, Obstetrics) The patient and/or their outreach representative will communicate an understanding of the ir plan of care. Outcome: Adequate for Discharge Date Met: 08/10/14 * Care Plan - Renay Mcdermott RN - 08/10/2014 10:27 AM CDT Problem: General Plan of Care (Adult, Obstetrics) Goal: Individualization/Patient-Specific Goal (Adult, Obstetrics) The patient and/or their outreach representative will achieve their patient-specific goal s related to the plan of care. The patient-specific goals include: to feel anisha r. Outcome: Adequate for Discharge Date Met: 08/10/14 * Care Plan - Loretta Vera RN - 08/10/2014 6:03 AM CDT PW PUL: COPD - ADULT, ADMIT TO MED SURG Pathway Day 3 Hemodynamic: Temp > 96.8F (36C) or < 100.4F (38C), HR<90/min, Resp </= 25/min., SBP >90mmHg Met Respiratory: Patient's oxygen saturation maintained above 88% on RA unless otherwise specified Met Nutrition: Patient able to maintain nutrition and fluid intake without inc rease respiratory symptoms Met Symptom Management: Patient reports improvement on exacerbation symptoms M et Pneumovax vaccine administered or documented 'as current' in historical im munizations and influenza vaccine as indicated Met Activity: Patient able to tolerate activity appropriate for discharge loca tion or post acute services arranged Met Discharge Planning: Patient and/or Antelmo Care Delegate states names of med ications and understands the importance of completing therapy course. Verbalizes importance of nutrition, progessive activity, and signs and symptoms to report to the MD Met COPD, Chronic Bronchitis/Emphysema (Adult) Prevent/Manage Potential Problems Progressing Fall/Trauma/Injury Risk (Adult) Fall/Trauma/Injury Risk: Absence of Trauma/Injury/Falls Progressing General Plan of Care (Adult, Obstetrics) Individualization/Patient-Specific Goal (Adult, Obstetrics) Progressing Plan of Care Review (Adult, Obstetrics) Progressing Identify Discharge Needs Progressing Infection, Risk/Actual (Adult) Infection, Risk/Actual: Infection Prevention/Resolution/Control Progressing * Care Plan - Loretta Vera RN - 08/09/2014 9:25 PM CDT Problem: General Plan of Care (Adult, Obstetrics) Goal: Plan of Care Review (Adult, Obstetrics) The patient and/or their outreach representative will communicate an understanding of the ir plan of care. Outcome: Progressing Problem: Fall/Trauma/Injury Risk (Adult) Goal: Fall/Trauma/Injury Risk: Absence of Trauma/Injury/Falls Patient will demonstrate the desired outcomes. Outcome: Progressing Problem: Infection, Risk/Actual (Adult) Goal: Infection, Risk/Actual: Infection Prevention/Resolution/Control Patient will demonstrate the desired outcomes. Outcome: Progressing * Care Plan - Loretta Vera RN - 08/09/2014 4:28 AM CDT PW PUL: COPD - ADULT, ADMIT TO MED SURG Pathway Day 2 Hemodynamic: Temp > 96.8F (36C) or < 100.4F (38C), HR<90/min, Resp </= 25/min., SBP >90mmHg Met Respiratory: Patient's oxygen saturation maintained above 88% on RA unless otherwise specified Met Respiratory: No signs & symptoms of severe exacerbation (2 or more of the following NEW symptoms: dyspnea at rest, new onset cyanosis, respiratory rate of > 25/min., HR of > 110/min., use of accessory muscles of respiration, hypoxemia and or hypercapnia Met Nutrition: Patient able to maintain nutrition and fluid intake without inc rease respiratory symptoms Met Symptom Management: Patient reports improvement of exacerbation symptoms M et Activity: Patient up in chair twice daily or PT consult ordered Met Discharge Planning: Patient or healthcare delegate is an active participan t in discharge planning Met ALIZA PUL: COPD - ADULT, ADMIT TO MED SURG Pathway Day 2 Medications: Oral steroids maintained or IV steroids switched to oral rout e Not Met GOAL NOT YET MET BUT PATIENT PROGRESSING TOWARD GOAL - IV steroids ordered . COPD, Chronic Bronchitis/Emphysema (Adult) Prevent/Manage Potential Problems Progressing Fall/Trauma/Injury Risk (Adult) Fall/Trauma/Injury Risk: Absence of Trauma/Injury/Falls Progressing General Plan of Care (Adult, Obstetrics) Individualization/Patient-Specific Goal (Adult, Obstetrics) Progressing Plan of Care Review (Adult, Obstetrics) Progressing Identify Discharge Needs Progressing Infection, Risk/Actual (Adult) Infection, Risk/Actual: Infection Prevention/Resolution/Control Progressing * Care Plan - Loretta Vera RN - 08/08/2014 10:05 PM EMERGENCY DEPARTMENT COORDINATOR Problem: General Plan of Care (Adult, Obstetrics) Goal: Plan of Care Review (Adult, Obstetrics) The patient and/or their outreach representative will communicate an understanding of the ir plan of care. Outcome: Progressing Problem: Fall/Trauma/Injury Risk (Adult) Goal: Fall/Trauma/Injury Risk: Absence of Trauma/Injury/Falls Patient will demonstrate the desired outcomes. Outcome: Progressing Problem: Infection, Risk/Actual (Adult) Goal: Infection, Risk/Actual: Infection Prevention/Resolution/Control Patient will demonstrate the desired outcomes. Outcome: Progressing GENCY DEPARTMENT COORDINATOR * Care Plan - Lina So RN - 08/08/2014 7:00 PM EMERGENCY DEPARTMENT COORDINATOR PW PUL: COPD - ADULT, ADMIT TO MED SURG Pathway Day 1 Hemodynamic: Temp > 96.8F (36) or < 100.4F (38C), HR < 110/min., Resp </= 25/min., SBP > 90mmHg Met Respiratory: Patient's oxygen saturation maintained above 88% on prescribe d oxygen therapy unless otherwise specified Met Respiratory: No signs and symptoms of severe exacerbation (2 or more of th e following) NEW symptoms: dyspnea at rest, new onset cyanosis, respiratory rate of > 25/min., HR of > 110/min., use of accessory muscles of respiration, hypoxemia, and/or hypercapnia Met Activity: Patient able to sit up in the chair for greater than or equal to 20 minutes within the first 24 hours Met Discharge Planning: Discharge needs identified and/or admission screening assessments completed Met COPD, Chronic Bronchitis/Emphysema (Adult) Prevent/Manage Potential Problems Progressing Fall/Trauma/Injury Risk (Adult) Fall/Trauma/Injury Risk: Absence of Trauma/Injury/Falls Progressing General Plan of Care (Adult, Obstetrics) Individualization/Patient-Specific Goal (Adult, Obstetrics) Progressing Plan of Care Review (Adult, Obstetrics) Progressing Identify Discharge Needs Progressing Infection, Risk/Actual (Adult) Infection, Risk/Actual: Infection Prevention/Resolution/Control Progressing GENCY DEPARTMENT COORDINATOR * Fide Echeverria - Loretta Vera RN - 08/08/2014 4:09 AM EMERGENCY DEPARTMENT COORDINATOR PW PUL: COPD - ADULT, ADMIT TO MED SURG Pathway Day 1 Hemodynamic: Temp > 96.8F (36) or < 100.4F (38C), HR < 110/min., Resp </= 25/min., SBP > 90mmHg Met Respiratory: Patient's oxygen saturation maintained above 88% on prescribe d oxygen therapy unless otherwise specified Met Respiratory: No signs and symptoms of severe exacerbation (2 or more of th e following) NEW symptoms: dyspnea at rest, new onset cyanosis, respiratory rate of > 25/min., HR of > 110/min., use of accessory muscles of respiration, hypoxemia, and/or hypercapnia Met Activity: Patient able to sit up in the chair for greater than or equal to 20 minutes within the first 24 hours Met Discharge Planning: Discharge needs identified and/or admission screening assessments completed Met COPD, Chronic Bronchitis/Emphysema (Adult) Prevent/Manage Potential Problems Progressing Fall/Trauma/Injury Risk (Adult) Fall/Trauma/Injury Risk: Absence of Trauma/Injury/Falls Progressing General Plan of Care (Adult, Obstetrics) Individualization/Patient-Specific Goal (Adult, Obstetrics) Progressing Plan of Care Review (Adult, Obstetrics) Progressing Identify Discharge Needs Progressing Infection, Risk/Actual (Adult) Infection, Risk/Actual: Infection Prevention/Resolution/Control Progressing GENCY DEPARTMENT COORDINATOR * Fide Echeverria - Loretta Vera RN - 08/07/2014 11:46 PM EMERGENCY DEPARTMENT COORDINATOR Problem: General Plan of Care (Adult, Obstetrics) Goal: Plan of Care Review (Adult, Obstetrics) The patient and/or their outreach representative will communicate an understanding of the ir plan of care. Outcome: Progressing Problem: Fall/Trauma/Injury Risk (Adult) Goal: Fall/Trauma/Injury Risk: Absence of Trauma/Injury/Falls Patient will demonstrate the desired outcomes. Outcome: Progressing Problem: Infection, Risk/Actual (Adult) Goal: Infection, Risk/Actual: Infection Prevention/Resolution/Control Patient will demonstrate the desired outcomes. Outcome: Progressing GENCY DEPARTMENT COORDINATOR documented in this encounter Plan of Treatment Order Schedule Name Type Priority Associated Diag noses ONE TIME for 1 Occurrences starting 12/2014 until 08/08/2014 SPUTUM CULTURE WITH GRAM Microbiology Routine STAIN documented as of this encounter Procedures Comments Procedure Name Priority Date/Time Associated Diag nosis EKG 12 LEAD UNIT Stat 08/12/2014 PERFORMED 9:02 AM CDT EDUCATION COPD: WHAT Routine 08/10/2014 PATIENTS CAN DO 10:26 AM CDT EDUCATION COPD: ABOUT Routine 08/10/2014 10:25 AM CDT POC GLUCOSE Routine 08/10/2014 6:37 AM CDT POC GLUCOSE Routine 08/09/2014 5:12 PM CDT POC GLUCOSE Routine 08/09/2014 6:28 AM CDT POC GLUCOSE Routine 08/08/2014 9:15 PM EMERGENCY DEPARTMENT COORDINATOR POC GLUCOSE Routine 08/08/2014 5:19 PM EMERGENCY DEPARTMENT COORDINATOR POC GLUCOSE Routine 08/08/2014 12:07 PM EMERGENCY DEPARTMENT COORDINATOR POC GLUCOSE Routine 08/08/2014 5:55 AM EMERGENCY DEPARTMENT COORDINATOR DIFFERENTIAL, MANUAL Routine 08/08/2014 5:50 AM EMERGENCY DEPARTMENT COORDINATOR CBC WITH DIFFERENTIAL Routine 08/08/2014 5:50 AM EMERGENCY DEPARTMENT COORDINATOR XR CHEST PA AND LATERAL 2 Routine 08/08/2014 VW 5:36 AM EMERGENCY DEPARTMENT COORDINATOR POC GLUCOSE Routine 08/07/2014 10:20 PM EMERGENCY DEPARTMENT COORDINATOR PEAK FLOW Stat 08/07/2014 3:00 PM EMERGENCY DEPARTMENT COORDINATOR DIFFERENTIAL, MANUAL Stat 08/07/2014 1:20 PM EMERGENCY DEPARTMENT COORDINATOR CBC WITH DIFFERENTIAL Stat 08/07/2014 1:20 PM EMERGENCY DEPARTMENT COORDINATOR TROPONIN Stat 08/07/2014 1:20 PM EMERGENCY DEPARTMENT COORDINATOR COMPREHENSIVE METABOLIC Stat 08/07/2014 PANEL 1:20 PM EMERGENCY DEPARTMENT COORDINATOR documented in this encounter Results * EKG 12 LEAD UNIT PERFORMED (08/12/2014 9:02 AM CDT) Narrative Performed At This result has an attachment that is n ot available. Transcriptions Sukhi Whipple MD - 08/12/2014 8:14 AM CDT [place] [address] Patient Name: JERALD VELAZQUEZ CSN: [id number] : 1970 Provider: Sukhi Whipple M.D. Admitted: 08/07/2014 ELECTROCARDIOGRAM DATE OF SERVICE: 08/07/2014 08/07/2014 at 1526. The rhythm is regular, sinus in origin with a rate of 92 beats per minute. T waves are flattened to inverted in lateral limb leads. No old tracings are available for comparison. DIAGNOSIS: 1) Sinus rhythm, rate 92 beats per minute. 2) Nonspecific T wave changes. Dictated by: Sukhi Whipple M.D./[employer] D: [id number] V: [id number] cc: LEWIS Aguillon * EDUCATION COPD: WHAT PATIENTS CAN DO (08/10/2014 10:26 AM CDT) Education Name COPD: WHAT PATIENTS CAN DO JUMA EDUCA TION INTERFACE Education URL [email or web address] JUMA E DUCATION mmi INTERFACE EDUCATION [id number] JUMA EDUCATION ACCESS CODE INTERFACE EDUCATION ISSUE Aug 10, 2014 JUMA EDUCATION DATE INTERFACE EDUCATION START JUMA EDUCATION DATE INTERFACE EDUCATION This program was not started JUMA EDU CATION COMPLETED DATE and flagged as on: Aug EDUCATION Sep 09, 2014 JUMA EDUCATION EXPIRATION DATE INTERFACE EDUCATION JUMA EDUCATION MESSAGE EVENT INTERFACE Specimen Performing Organization Address [facility] one Number JUMA EDUCATION INTERFACE * EDUCATION COPD: ABOUT (08/10/2014 10:25 AM CDT) Education Name COPD: ABOUT JUMA EDUCATION INTERFACE Education URL [email or web address] JUMA E DUCATION mmi INTERFACE EDUCATION [id number] JUMA EDUCATION ACCESS CODE INTERFACE EDUCATION ISSUE Aug 10, 2014 JUMA EDUCATION DATE INTERFACE EDUCATION START JUMA EDUCATION DATE INTERFACE EDUCATION This program was not started JUMA EDU CATION COMPLETED DATE and flagged as on: Aug EDUCATION Sep 09, 2014 JUMA EDUCATION EXPIRATION DATE INTERFACE EDUCATION JUMA EDUCATION MESSAGE EVENT INTERFACE Specimen Performing Organization Address [facility] one Number JUMA EDUCATION INTERFACE * POC GLUCOSE (08/10/2014 6:37 AM CDT) POC GLUCOSE 224 (H) 70 - 100 mg/dL [facility] [place] Specimen Blood, capillary Performing Organization Address [facility] one Number [facility] CLIA# [id number] [place] [address] [address] * POC GLUCOSE (08/09/2014 5:12 PM CDT) POC GLUCOSE 123 (H) 70 - 100 mg/dL [facility] [place] Specimen Blood, capillary Performing Organization Address [facility] Ph one Number [facility] CLIA# [id number] [place] [address] [address] * POC GLUCOSE (08/09/2014 6:28 AM CDT) POC GLUCOSE 142 (H) 70 - 100 mg/dL [facility] [place] Specimen Blood, capillary Performing Organization Address [facility]ATORY SERVICES CLIA# [id number] CLEMENTE RIOJAS [address] - ALYSA BRITTON [address] [place] [address] * POC GLUCOSE (08/08/2014 9:15 PM EMERGENCY DEPARTMENT COORDINATOR) POC GLUCOSE 146 (H) 70 - 100 mg/dL [facility] - AL[place]SA BRITTON Specimen Blood, capillary Performing Organization Address [facility]ATORY SERVICES CLIA# [id number] CLEMENTE RIOJAS [facility] [phone] - ALYSA BRITTON [address] [place] [address] * POC GLUCOSE (08/08/2014 5:19 PM EMERGENCY DEPARTMENT COORDINATOR) POC GLUCOSE 142 (H) 70 - 100 mg/dL [facility] - ALYSA BRITTON Specimen Blood, capillary Performing Organization Address [facility]ORATORY SERVICES CLIA# [id number] ALYSA BRITTON [facility] [phone] - [facility] REBA [address] [place] [address] * POC GLUCOSE (08/08/2014 12:07 PM EMERGENCY DEPARTMENT COORDINATOR) POC GLUCOSE 142 (H) 70 - 100 mg/dL [facility] - ALYSA BRITTON Specimen Blood, capillary Performing Organization Address [facility] LABORATORY [facility] CLIA# [id number] ALYSA BRITTON [facility] [phone] - [facility] REBA [address] [place] [address] * POC GLUCOSE (08/08/2014 5:55 AM EMERGENCY DEPARTMENT COORDINATOR) POC GLUCOSE 136 (H) 70 - 100 mg/dL [facility] - ALYSA BRITTON Specimen Blood, capillary Performing Organization Address [facility] [facility] LABORATORY [facility] CLIA# [id number] [place] [address] - [address] * MANUAL DIFFERENTIAL (08/08/2014 5:50 AM EMERGENCY DEPARTMENT COORDINATOR) ADJUSTED WBC 2.8 (L) 3.0 - 10.4 K/uL [facility] - ALYSA BRITTON SEGMENTED 47 30 - 68 % [facility] NEUTROPHILS LABORATORY SERVICES - ALYSA BRITTON BANDS RELATIVE 36 (H) 0 - 22 % [facility] LABORATORY SERVICES - [place] LYMPHOCYTES 14 14 - 50 % [facility] RELATIVE LAB[facility]AT[facility] SERVICES - ALYSA BRITTON MONOCYTES 3 0 - 11 % [facility] RELATIVE [facility] - ALYSA BRITTON PLATELET EST. Adequate [facility] - ALYSA BRITTON NEUTROPHILS 2.32 1.30 - 7.60 K/uL [facility] ABSOLUTE COUNT LABORATORY SERVICES - ALYSA BRITTON LYMPHOCYTES 0.39 (L) 0.60 - 4.90 K/uL [facility] ABSOLUTE LAB[facility]ATORY SERVICES - ALYSA BRITTON MONOCYTES 0.08 (L) 0.10 - 0.90 K/uL [facility] ABSOLUTE LABORATORY SERVICES - ALYSA BRITTON RBC MORPHOLOGY Normal [facility] - ALYSA BRITTON TOTAL CELLS 100 [facility] COUNTED IN DIFF LABORATORY SERVICES - ALYSA BRITTON Specimen Blood Performing Organization Address [facility] Ph one Number [facility] LABORATORY SERVICES CLIA# [id number] CLEMENTE RIOJAS [address] - ALYSA BRITTON [address] [place] [address] * CBC WITH DIFFERENTIAL (08/08/2014 5:50 AM EMERGENCY DEPARTMENT COORDINATOR) WBC 2.8 (L) 3.0 - 10.4 K/uL [facility] - ALYSA BRITTON RBC 4.45 3.77 - 4.97 M/uL [facility] LABORATORY SERVICES - ALYSA BRITTON HEMOGLOBIN 13.7 11.9 - 15.0 g/dL [facility] LABORATORY SERVICES - ALYSA BRITTON HEMATOCRIT 43.3 34.4 - 43.6 % [facility] LABORATORY SERVICES - ALYSA BRITTON MCV 97.3 79.0 - 100.0 fL [facility] LABORATORY SERVICES - ALYSA BRITTON MCH 30.8 28.0 - 34.0 pg [facility] LABORATORY SERVICES - ALYSA BRITTON MCHC 31.7 31.0 - 35.0 g/dL [facility] LABORATORY SERVICES - ALYSA BRITTON RDW 13.1 11.5 - 15.1 % [facility] LABORATORY SERVICES - ALYSA BRITTON PLATELETS 94 (L) 148 - 408 K/uL [facility] LABORATORY SERVICES - ALYSA BRITTON MPV 9.5 7.4 - 10.6 fL [facility] LABORATORY SERVICES - ALYSA BRITTON Specimen Blood Performing Organization Address City/[facility] Ph one Number [facility] LABORATORY SERVICES CLIA# [id number] CLEMENTE RIOJAS [address] - ALYSA BRITTON [address] [place] [address] * XR CHEST PA AND LATERAL (08/08/2014 5:36 AM EMERGENCY DEPARTMENT COORDINATOR) Specimen Impressions Performed At IMPRESSION: INTERFACE SYSTEM Possible mild interstitial pneumonitis and tiny right mid lung infiltrate. Electronically Signed By: Cesar brothers MD, Signed On: 08/08/2014 7:30 AM Narrative Performed At RADIOLOGIC EXAM: 2 view chest x-ray. INTERFACE SYSTE M INDICATION: COPD and shortness of air Comparison:08/06/14 FINDINGS: Heart size and vascularity no rmal. No effusion or pneumothorax. There has been a slight increase in int erstitial prominence in both lungs. This may return a mild interstitial pneumonitis. There is a po ssible tiny focal infiltrate in the lateral aspect of the right midlung. Procedure Note Interface, Rayray Aok Incoming Radiology Results - 08/08/2014 7:35 AM EMERGENCY DEPARTMENT COORDINATOR RADIOLOGIC EXAM: 2 view chest x-ray. INDICATION: COPD and shortness of air Comparison:08/06/14 FINDINGS: Heart size and vascularity normal. No effusion or pneumothorax. There has been a slight increase in interstitial prominence in both lungs. This may return a mild interstitial pneumonitis. There is a possible tiny focal infiltrate in the lateral aspect of the right midlung. IMPRESSION IMPRESSION: Possible mild interstitial pneumonitis and tiny right mid lung infiltrate. Electronically Signed By: Cesar Kovacs MD, Signed On: 08/08/2014 7:30 AM Performing Organization Address City/State/Zipcode Ph one Number INTERFACE SYSTEM INTERFACE SYSTEM Refer to clinic/hospital department * POC GLUCOSE (08/07/2014 10:20 PM EMERGENCY DEPARTMENT COORDINATOR) POC GLUCOSE 179 (H) 70 - 100 mg/dL [facility] LABORATORY SERVICES - ALYSA BRITTON Specimen Blood, capillary Performing Organization Address City/[facility]/Zipcode Ph one Number [facility] LABORATORY SERVICES CLIA# [id number] [place] [address] - ALYSA BRITTON [address] [place] [address] * MANUAL DIFFERENTIAL (08/07/2014 1:20 PM EMERGENCY DEPARTMENT COORDINATOR) ADJUSTED WBC 5.5 3.0 - 10.4 K/uL [facility] LABORATORY SERVICES - ALYSA BRITTON SEGMENTED 25 (L) 30 - 68 % [facility] NEUTROPHILS LABORATORY SERVICES - ALYSA BRITTON BANDS RELATIVE 42 (H) 0 - 22 % [facility] LABORATORY SERVICES - ALYSA BRITTON LYMPHOCYTES 25 14 - 50 % [facility] - ALYSA BRITTON MONOCYTES 7 0 - 11 % [facility] - ALYSA BRITTON BASOPHILS 1 0 - 2 % [facility] - ALYSA BRITTON PLATELET EST. Adequate [facility] - ALYSA BRITTON NEUTROPHILS 3.69 1.30 - 7.60 K/uL [facility] ABSOLUTE COUNT LABORATORY SERVICES - ALYSA BRITTON LYMPHOCYTES 1.38 0.60 - 4.90 K/uL [facility] ABSOLUTE LABORATORY SERVICES - ALYSA BRITTON MONOCYTES 0.39 0.10 - 0.90 K/uL [facility] ABSOLUTE LAB[facility]AT[facility] SERVICES - ALYSA BRITTON BASOPHILS 0.06 0.00 - 0.10 K/uL [facility] ABSOLUTE LAB[facility] - ALYSA BRITTON RBC MORPHOLOGY Normal [facility] - ALYSA BRITTON TOTAL CELLS 100 [facility] COUNTED IN DIFF LABORATORY SERVICES - ALYSA BRITTON Specimen Blood Performing Organization Address [facility] Ph one Number [facility] LABORATORY SERVICES CLIA# [id number] [place] [address] - ALYSA BRITTON [address] [place] [address] * TROPONIN (08/07/2014 1:20 PM EMERGENCY DEPARTMENT COORDINATOR) [facility] TROPONIN I 0.04 <0.40 ng/mL [facility] LABORATORY SERVICES - ALYSA BRITTON Specimen Blood Performing Organization Address [facility] one [facility] LABORATORY SERVICES CLIA# [id number] [place] [address] - [facility] REBA [address] [place] [address] * COMPREHENSIVE METABOLIC PANEL (08/07/2014 1:20 PM EMERGENCY DEPARTMENT COORDINATOR) Pathologist [facility] SODIUM 138 134 - 145 mmol/L [facility] LABORATORY SERVICES - ALYSA BRITTON POTASSIUM 3.7 3.5 - 5.1 mmol/L [facility] LABORATORY SERVICES - ALYSA BRITTON CHLORIDE 103 98 - 107 mmol/L [facility] LABORATORY SERVICES - ALYSA BRITTON CO2 24 22 - 31 mmol/L [facility] LABORATORY SERVICES - ALYSA BRITTON CALCIUM 8.0 (L) 8.5 - 10.1 mg/dL [facility] LABORATORY SERVICES - ALYSA BRITTON BUN 15 7 - 20 mg/dL [facility] LABORATORY SERVICES - ALYSA BRITTON CREATININE 0.92 0.51 - 0.95 mg/dL [facility] LABORATORY SERVICES - ALYSA BRITTON GLUCOSE 104 (H) 70 - 100 mg/dL [facility] LABORATORY SERVICES - ALYSA BRITTON TOTAL PROTEIN 7.1 6.4 - 8.2 g/dL [facility] LABORATORY SERVICES - ALYSA BRITTON ALBUMIN 3.6 3.4 - 5.0 g/dL [facility] LABORATORY SERVICES - ALYSA BRITTON BILIRUBIN TOTAL 0.3 <=1.1 mg/dL [facility] LABORATORY SERVICES - ALYSA BRITTON ALKALINE 130 40 - 136 U/L [facility] PHOSPHATASE LABORATORY SERVICES - ALYSA BRITTON AST 24 10 - 40 U/L [facility] - ALYSA BRITTON ALT 30 14 - 63 U/L [facility] - ALYSA REBA GFR >60 >=60 mL/min/1.73 sq [facility] Comment: meter LABORATORY eGFR has not been validated SERVICES [facility] for use in the elderly (> [...] result. GFR, >60 >=60 mL/min/1.73 sq [facility] meter LABORATORY SERVICES - ALYSA BRITTON ANION GAP 11 4 - 20 mmol/L [facility] LABORATORY SERVICES - ALYSA BRITTON Specimen Blood Performing Organization Address [facility] Ph one Number [facility] LABORATORY SERVICES CLIA# [id number] ALYSA [place], [place] [address] - ALYSA BRITTON [address] [facility] * CBC WITH DIFFERENTIAL (08/07/2014 1:20 PM EMERGENCY DEPARTMENT COORDINATOR) Pathologist [facility] WBC 5.5 3.0 - 10.4 K/uL [facility] LABORATORY SERVICES - ALYSA BRITTON RBC 4.52 3.77 - 4.97 M/uL [facility] LABORATORY SERVICES - ALYSA BRITTON HEMOGLOBIN 14.2 11.9 - 15.0 g/dL [facility] LABORATORY SERVICES - ALYSA BRITTON HEMATOCRIT 43.3 34.4 - 43.6 % [facility] LABORATORY SERVICES - ALYSA BRITTON MCV 95.9 79.0 - 100.0 fL [facility] LABORATORY SERVICES - ALYSA BRITTON MCH 31.5 28.0 - 34.0 pg [facility] LABORATORY SERVICES - ALYSA BRITTON MCHC 32.8 31.0 - 35.0 g/dL [facility] LABORATORY SERVICES - ALYSA BRITTON RDW 13.1 11.5 - 15.1 % [facility] LABORATORY SERVICES - ALYSA BRITTON PLATELETS 115 (L) 148 - 408 K/uL [facility] LABORATORY SERVICES - ALYSA BRITTON MPV 9.7 7.4 - 10.6 fL [facility] LABORATORY SERVICES - ALYSA BRITTON Specimen Blood Performing Organization Address City/[facility]/Zipcode Ph one Number [facility] LABORATORY SERVICES CLIA# [id number] [place], [place] [address] - [facility] REBA [address] [place] [address] documented in this encounter Visit Diagnoses Diagnosis COPD with exacerbation - Primary Obstructive chronic bronchitis with exa cerbation Vomiting Vomiting alone Pneumonia, organism unspecified([phone]) Pneumonia, organism unspecified documented in this encounter Administered Medications Action Date Dose Rate Site Medication Order MAR Action 08/09/2014 8:44 PM CDT 20 mg atorvastatin (LIPITOR) tablet 20 mg Given 20 mg, Oral, DAILY AT BEDTIME, First dose on Sun08/07/14 at 2100, Until Discontinued, Routine, Previous Med: atorvastatin (LIPITOR) 20 mg tablet - Orig Sig - TAKE 1 TABLET BY MOUTH DAILY AT BEDTIME, 20 mg Given 08/08/2014 9:16 PM EMERGENCY DEPARTMENT COORDINATOR 20 mg Given 08/07/2014 10:16 PM EMERGENCY DEPARTMENT COORDINATOR 08/09/2014 8:54 PM CDT 500 mg azithromycin (ZITHROMAX) IVPB 500 mg New Bag 500 mg, IV, DAILY, 5 doses, First dose on Sun08/07/14 at 2100, Last dose on Sun08/11/14 at 2100, Routine, Antibiotic Indication: Upper Respiratory Tract / ENT Infection 500 mg New Bag 08/08/2014 9:19 PM EMERGENCY DEPARTMENT COORDINATOR 500 mg New Bag 08/07/2014 10:13 PM EMERGENCY DEPARTMENT COORDINATOR 08/07/2014 4:07 PM EMERGENCY DEPARTMENT COORDINATOR 250 mg azithromycin (ZITHROMAX) tablet 250 mg Given 250 mg, Oral, ONE TIME ONLY, 1 dose, Fr i 08/07/14 at 1600, Routine, Antibiotic Indication: Upper Respiratory Tract / ENT Infection 08/09/2014 4:11 PM CDT 1,000 mg 120 mL/hr cefTRIAXone (ROCEPHIN) IVPB 1,000 mg New Bag 1,000 mg, IV, EVERY 24 HOURS (DAILY), First dose on 08/08/14 at 1600, Until Discontinued, Routine, Antibiotic Indication: Pneumonia - Community-acquired(CAP) 1,000 mg 120 mL/hr New Bag 08/08/2014 3:52 PM EMERGENCY DEPARTMENT COORDINATOR 08/10/2014 8:09 AM CDT 150 mg dabigatran etexilate (PRADAXA) capsule Given 150 mg 150 mg, Oral, TWO TIMES DAILY, First dose on Sun08/07/14 at 2100, Until Discontinued, Routine, Previous Med: dabigatran etexilate (PRADAXA) 150 mg Capsule - Orig Sig - Take 150 mg by mouth 2 times daily. , 150 mg Given 08/09/2014 8:44 PM CDT 150 mg Given 08/09/2014 9:01 AM CDT 08/10/2014 8:09 AM CDT 40 mg furosemide (LASIX) tablet 40 mg Given 40 mg, Oral, DAILY, First dose on Sun08/07/14 at 2015, Until Discontinued, Routine, Previous Med: furosemide (LASIX) 40 mg tablet - Orig Sig - TAKE 1 TABLET BY MOUTH TWICE DAILY, 40 mg Given 08/09/2014 9:01 AM CDT 40 mg Given 08/08/2014 8:44 AM EMERGENCY DEPARTMENT COORDINATOR 08/07/2014 10:23 PM EMERGENCY DEPARTMENT COORDINATOR 4 Units Abdomen, Right Lower Quadrant insulin aspart (NOVOLOG) 100 unit/mL Given injection subCUT, FOUR TIMES DAILY WITH MEALS AND AT BEDTIME, First dose on Sun08/07/14 at 2100, Until Discontinued, Routine 08/07/2014 3:13 PM EMERGENCY DEPARTMENT COORDINATOR 3 mL ipratropium-albuterol (DUONEB) 0.5 mg-3 Given mg(2.5 mg base)/3 mL inhalation solutio n 3 mL 3 mL, Inhalation, ONE TIME ONLY RESPIRATORY, 1 dose, 08/07/14 at 1515 , Routine 08/10/2014 7:57 AM CDT 3 mL ipratropium-albuterol (DUONEB) 0.5 mg-3 Given mg(2.5 mg base)/3 mL inhalation solutio n 3 mL 3 mL, Inhalation, EVERY 6 HOURS RESPIRATORY, First dose on Sun08/07/14 a t 2014, Until Discontinued, Routine 3 mL Given 08/10/2014 1:13 AM CDT 3 mL Given 08/09/2014 6:31 PM CDT 08/08/2014 5:50 AM EMERGENCY DEPARTMENT COORDINATOR 15 mg ketorolac (TORADOL) injection 15 mg Given 15 mg, IV, EVERY 6 HOURS PRN, Starting Sun08/07/14 at 2004, Until 08/09/14 at 0803, Pain, Routine 08/07/2014 7:22 PM EMERGENCY DEPARTMENT COORDINATOR 30 mg ketorolac (TORADOL) injection 30 mg Given 30 mg, IV, ONE TIME ONLY, 1 dose, Sun08/07/14 at 1930, Stat 08/10/2014 8:10 AM CDT 10 mg loratadine (CLARITIN) tablet 10 mg Given 10 mg, Oral, DAILY, First dose on Sun08/07/14 at 2014, Until Discontinued, Routine, Previous Med: loratadine (CLARITIN) 10 mg tablet - Orig Sig - Take 1 Tab by mouth daily. , 10 mg Given 08/09/2014 9:01 AM CDT 10 mg Given 08/08/2014 8:44 AM EMERGENCY DEPARTMENT COORDINATOR 08/09/2014 8:45 PM CDT 20 mg lurasidone (LATUDA) tablet 20 mg Given 20 mg, Oral, DAILY AT BEDTIME, First dose on 08/08/14 at 2100, Until Discontinued, Routine 20 mg Given 08/08/2014 9:17 PM EMERGENCY DEPARTMENT COORDINATOR 08/09/2014 8:46 PM CDT 40 mg lurasidone (LATUDA) tablet 40 mg Given 40 mg, Oral, DAILY AT BEDTIME, First dose on 08/08/14 at 2100, Until Discontinued, Routine 40 mg Given 08/08/2014 9:17 PM EMERGENCY DEPARTMENT COORDINATOR 08/09/2014 8:46 PM CDT 80 mg lurasidone (LATUDA) tablet 80 mg Given 80 mg, Oral, DAILY AT BEDTIME, First dose on 08/08/14 at 2100, Until Discontinued, Routine 80 mg Given 08/08/2014 9:17 PM EMERGENCY DEPARTMENT COORDINATOR 08/09/2014 9:01 AM CDT 1,000 mg metFORMIN (GLUCOPHAGE) tablet 1,000 mg Given 1,000 mg, Oral, TWO TIMES DAILY WITH MEALS, First dose on 08/08/14 at 1700 , Until Discontinued, Routine 1,000 mg Given 08/08/2014 5:20 PM EMERGENCY DEPARTMENT COORDINATOR 08/07/2014 3:18 PM EMERGENCY DEPARTMENT COORDINATOR 125 mg methylPREDNISolone sodium succinate Given (SOLU-MEDROL) injection 125 mg 125 mg, IV, ONE TIME ONLY, 1 dose, Sun08/07/14 at 1515, Stat 08/10/2014 5:12 AM CDT 80 mg methylPREDNISolone sodium succinate Given (SOLU-MEDROL) injection 80 mg 80 mg, IV, EVERY 6 HOURS, First dose on Sun08/07/14 at 2014, Until Discontinued, Stat 80 mg Given 08/09/2014 11:00 PM CDT 80 mg Given 08/09/2014 5:14 PM CDT 08/10/2014 8:14 AM CDT 1 Patch Arm, Rig ht nicotine (NICODERM CQ) 14 mg/24 hr Applied transdermal patch 1 Patch 1 Patch, Transdermal, DAILY, First dose on Sun08/07/14 at 2015, Until Discontinued, Routine 1 Patch Arm, Left Upper Applied 08/09/2014 9:01 AM CDT 1 Patch Arm, Right Upper Applied 08/08/2014 8:45 AM EMERGENCY DEPARTMENT COORDINATOR 08/07/2014 4:21 PM EMERGENCY DEPARTMENT COORDINATOR 4 mg ondansetron (ZOFRAN ODT) tablet 4 mg Given 4 mg, Oral, ONE TIME ONLY, 1 dose, Sun08/07/14 at 1630, Routine 08/07/2014 7:22 PM EMERGENCY DEPARTMENT COORDINATOR 4 mg ondansetron (ZOFRAN ODT) tablet 4 mg Given 4 mg, Oral, ONE TIME ONLY, 1 dose, Sun08/07/14 at 1930, Routine 08/09/2014 8:34 PM CDT 4 mg ondansetron (ZOFRAN) 4 mg/2 mL injection Given 4 mg 4 mg, IV, EVERY 6 HOURS PRN, Starting Sun08/07/14 at 2004, Until Sun08/10/14 at 1337, Nausea/Emesis, Routine 4 mg Given 08/08/2014 11:59 PM EMERGENCY DEPARTMENT COORDINATOR 4 mg Given 08/08/2014 6:17 PM EMERGENCY DEPARTMENT COORDINATOR 08/10/2014 6:31 AM CDT 40 mg pantoprazole (PROTONIX) tablet 40 mg Given 40 mg, Oral, DAILY, First dose on 08/08/14 at 0730, Until Discontinued, Routine 40 mg Given 08/09/2014 6:27 AM CDT 40 mg Given 08/08/2014 5:56 AM EMERGENCY DEPARTMENT COORDINATOR 08/10/2014 8:10 AM CDT 20 mEq potassium chloride (K-TAB) SR tablet 20 Given mEq 20 mEq, Oral, DAILY WITH BREAKFAST, First dose on 08/08/14 at 0800, Until Discontinued, Previous Med: POTASSIUM CHLORIDE ORAL - Orig Sig - Take 20 mEq by mouth daily lead burner., 20 mEq Given 08/09/2014 9:01 AM CDT 20 mEq Given 08/08/2014 8:44 AM EMERGENCY DEPARTMENT COORDINATOR 08/07/2014 4:06 PM EMERGENCY DEPARTMENT COORDINATOR 40 mg predniSONE (DELTASONE) tablet 40 mg Given 40 mg, Oral, ONE TIME ONLY, 1 dose, Sun08/07/14 at 1600, Routine 08/09/2014 12:10 PM CDT 10 mg prochlorperazine (COMPAZINE) injection Given 10 mg 10 mg, IV, EVERY 6 HOURS PRN, Starting 08/08/14 at 1418, Until 08/10/14 at 1337, Nausea/Emesis, Routine 10 mg Given 08/09/2014 5:08 AM CDT 10 mg Given 08/08/2014 9:07 PM EMERGENCY DEPARTMENT COORDINATOR 08/07/2014 3:15 PM EMERGENCY DEPARTMENT COORDINATOR 5 mg prochlorperazine (COMPAZINE) injection 5 Given mg 5 mg, IV, ONE TIME ONLY, 1 dose, 08/07/14 at 1515, Routine 08/09/2014 10:51 PM CDT 3 mL sodium chloride 0.9 % flush injection 3 Given mL 3 mL, IV, SEE ADMIN INSTRUCTIONS, Starting 08/07/14 at 1731, Until 08/10/14 at 1337, Routine 3 mL Given 08/09/2014 8:34 PM CDT 3 mL Given 08/09/2014 5:14 PM CDT 08/07/2014 3:13 PM EMERGENCY DEPARTMENT COORDINATOR 1,000 mL 1000 mL/hr sodium chloride 0.9% bolus solution New Bag 1,000 mL 1,000 mL, IV, ONE TIME ONLY, 1 dose, Fr i 08/07/14 at 1515, at 1,000 mL/hr, Administer over 60 Minutes, Stat 08/09/2014 5:07 AM CDT 125 mL/hr sodium chloride 0.9% infusion Bag Switched IV, at 125 mL/hr, CONTINUOUS, Starting 08/07/14 at 1730, Until 08/09/14 at 1139, Routine 125 mL/hr Bag Switched 08/08/2014 3:52 PM EMERGENCY DEPARTMENT COORDINATOR 125 mL/hr Bag Switched 08/08/2014 7:52 AM EMERGENCY DEPARTMENT COORDINATOR 08/10/2014 8:09 AM CDT 100 mg topiramate (TOPAMAX) tablet 100 mg Given 100 mg, Oral, THREE TIMES DAILY, First dose on 08/08/14 at 0800, Until Discontinued, Routine, Previous Med: topiramate (TOPAMAX) 100 mg Oral tablet - Orig Sig - Take 1 Tab by mouth 2 time s daily., 100 mg Given 08/09/2014 4:40 PM CDT 100 mg Given 08/09/2014 12:11 PM CDT 08/09/2014 8:44 PM CDT 200 mg topiramate (TOPAMAX) tablet 200 mg Given 200 mg, Oral, DAILY AT BEDTIME, First dose on Sun08/07/14 at 2100, Until Discontinued, Routine 200 mg Given 08/08/2014 9:16 PM EMERGENCY DEPARTMENT COORDINATOR 200 mg Given 08/07/2014 10:16 PM EMERGENCY DEPARTMENT COORDINATOR 08/09/2014 8:44 PM CDT 300 mg traZODone (DESYREL) tablet 300 mg Given 300 mg, Oral, DAILY AT BEDTIME, First dose on Sun08/07/14 at 2100, Until Discontinued, Routine, Previous Med: traZODone (DESYREL) 100 mg tablet - Estiven g Sig - Take 300 mg by mouth daily at bedtime 3 tabs. , 300 mg Given 08/08/2014 9:16 PM EMERGENCY DEPARTMENT COORDINATOR 300 mg Given 08/07/2014 10:16 PM EMERGENCY DEPARTMENT COORDINATOR 08/10/2014 8:09 AM CDT 225 mg venlafaxine (EFFEXOR XR) SR 24 hour Given capsule 225 mg 225 mg, Oral, DAILY WITH BREAKFAST, First dose on Sun08/08/14 at 0800, Until Discontinued, Routine, Previous Med: venlafaxine (EFFEXOR XR) 150 mg Extende d Release 24 hour capsule - Orig Sig - Take 225 mg by mouth daily., 225 mg Given 08/09/2014 9:01 AM CDT 225 mg Given 08/08/2014 8:44 AM EMERGENCY DEPARTMENT COORDINATOR documented in this encounter
--- OUTSIDE RECORDS SUMMARY | 2019-10-21 18:14 | XMS REPORT | Encounter Summary ---
Author Author [facility] Organization [facility] Address Unknown Phone Unavailable Care Team Providers Care Electrician'S Assistant Name Role Phone Robby Rajan Мария KILLIAN Unavailable Phong Stephens MD PCP Unavailable Reason for Visit * Reason Comments Knee Injury left knee inj, fell two day s ago. 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 [address] [address] [phone] Left knee pain (Primary Dx) 03/29/2014 Office Visit [address] [phone] Social History Date Tobacco Use Types Packs/Day Years Used Current Every Day Smoker Cigarettes 2 27 Smokeless Tobacco: Never Used Comments: STARTED [...] Signs Reading Time Taken Comments Vital Sign 100/62 03/29/2014 11:11 AM CDT Blood Pressure 77 03/29/2014 11:11 AM CDT Pulse 36.2 C (97.2 F) 03/29/2014 11:11 AM CDT Temperature - - Respiratory Rate 97% 03/29/2014 11:11 AM CDT Oxygen Saturation - - Inhaled Oxygen Concentration 117.9 kg (260 lb) 03/29/2014 11:11 AM CDT Weight 158.8 cm (5' 2.5") 03/29/2014 11:11 AM CDT Height 46.8 03/29/2014 11:11 AM CDT Body Mass Index documented in this encounter Progress Notes * Lydia Fung ARNP - 03/29/2014 11:23 AM CDT HISTORY OF PRESENT ILLNESS Ayden Odom, a 43 y.o. female. The history is provided by the patient. Knee Injury Location: Knee Time since incident: 3 days Injury: yes Knee location: L knee States she fell on her left knee when her dog tangled her up in the leash. Stat es she is in terrible pain and needs something for the pain. Has tried 600mg Ibu profen every 4 to 6 hours without improvement in pain. REVIEW OF SYSTEMS Review of Systems Constitutional: Negative. Respiratory: Negative. Cardiovascular: Negative. Gastrointestinal: Negative. Musculoskeletal: Positive for joint swelling. PHYSICAL EXAM BP 100/62 | Pulse 77 | Temp(Src) 97.2 F (36.2 C) | Ht 5' 2.5" (1.588 m) | Wt 260 lb (117.935 kg) | BMI 46.77 kg/m2 | SpO2 97% Physical Exam Constitutional: She is oriented to person, place, and time. She appears well-dev eloped and well-nourished. No distress. HENT: Head: Normocephalic and atraumatic. Cardiovascular: Normal rate. Pulmonary/Chest: Effort normal. Musculoskeletal: Left knee: She exhibits swelling. She exhibits no ecchymosis, no deformity and no erythema. Tenderness found. Neurological: She is alert and oriented to person, place, and time. Skin: Skin is warm and dry. She is not diaphoretic. Psychiatric: She has a normal mood and affect. Her behavior is normal. ASSESSMENT and PLAN: ICD-9-CM ICD-10-CM 1. Left knee pain 719.46 M25.562 XR KNEE 3 VW LEFT X-ray negative for acute fracture. Written rx for hydrocodone/APAP 5mg/325mg p o q 4-6 hours PRN pain, #10, no refills given as could not get rx to print. Pt instructed to f/u with PCP tomorrow for further eval of this pain. documented in this encounter Plan of Treatment Not on filedocumented as of this encounter Results * XR KNEE 3 VW LEFT (03/29/2014 11:34 AM CDT) Specimen Impressions Performed At IMPRESSION: INTERFACE SYSTEM Left knee negative for acute fracture. Electronically Signed By: Noel Villatoro MD, Signed On: 03/29/2014 11:46 AM Narrative Performed At Patient fell 2 days ago. INTERFACE SYSTEM EXAM: Unilateral left knee 4 views. INDICATION: 43-year-old female with left knee pain. The patient fell 2 days ago. COMPARISONS: Left knee films performed at October 02 3. FINDINGS: Left knee negative for acute fracture. The distal portion of a long IM rosio wit h screws is seen involving the left femur. There is a well-healed fracture is seen through the distal diaphyseal region. There is mild narrowing of the medial a nd patellofemoral joint compartments suggesting mild osteoarthritis. Procedure Note Interface, [facility] Incoming Radiology Results - 03/29/2014 11:50 AM CDT Patient fell 2 days ago. EXAM: Unilateral left knee 4 views. INDICATION: 43-year-old female with left knee pain. The patient fell 2 days ago. COMPARISONS: Left knee films performed at October 02, 2012. FINDINGS: Left knee negative for acute fracture. The distal portion of a long IM rosio with screws is seen involving the left femur. There is a well-healed fracture is seen through the distal diaphyseal region. There is mild narrowing of the medial and patellofemoral joint compartments suggesting mild osteoarthritis. IMPRESSION IMPRESSION: Left knee negative for acute fracture. Electronically Signed By: Noel Villatoro MD, Signed On: 03/29/2014 11:46 AM Performing Organization Address City/State/Zipcode Ph one Number INTERFACE SYSTEM INTERFACE SYSTEM Refer to clinic/hospital department documented in this encounter Visit Diagnoses Diagnosis Left knee pain - Primary Pain in joint, lower leg documented in this encounter
--- OUTSIDE RECORDS SUMMARY | 2019-10-21 18:14 | XMS REPORT | Encounter Summary ---
Author Author [facility] Organization [facility] Address Unknown Phone Unavailable Care Team Providers Care Sand Polisher Name Role Phone Robby Rajan APRN Unavailable Phong Stephens MD PCP Unavailable Carlos Middleton PCP Reason for Visit * Reason Comments Erroneous encounter-disregard Encounter Details Care Team Description Date Type Department Lorraine Hathaway MD [address] [place] [address] 05/12/2014 [facility] [address] [address] Social History Date Tobacco Use [...]
--- OUTSIDE RECORDS SUMMARY | 2019-10-21 18:14 | XMS REPORT | Encounter Summary ---
Author Author [facility] Organization [facility] Address Unknown Phone Unavailable Care Team Providers Care Angle Roll Operator Name Role Phone Robby Rajan APRN Unavailable Carlos Middleton PCP Reason for Visit * Reason Comments Fall Pt has presented to ER with cc of right hip pain - pt reports a fall 1 week ago and she fell again this nin g and this evening she is having severe right hip pain. Pt rates her pain 8/10. Pt has taken tramadol at 1400 this afternoon and it did not help her pain. Encounter Details Care Team Description Date Type Department Reggie Ramirez MD NO ADDRESS ON FILE Fall, initial encounter (Primary Dx); Contusion of right hip, initial encounter 06/01/2014 Emergency [facility] Emergency Department [address] [phone] Social History Date Tobacco Use Types Packs/Day [...] Signs Reading Time Taken Comments Vital Sign 128/84 06/01/2014 6:35 PM EDGE KITTER Blood Pressure 93 06/01/2014 6:35 PM EDGE KITTER Pulse 36 C (96.8 F) 06/01/2014 6:35 PM EDGE KITTER Temperature 18 06/01/2014 6:35 PM EDGE KITTER Respiratory Rate 94% 06/01/2014 6:35 PM EDGE KITTER Oxygen Saturation - - Inhaled Oxygen Concentration 121.6 kg (268 lb) 06/01/2014 6:35 PM EDGE KITTER Weight 157.5 cm (5' 2") 06/01/2014 6:35 PM EDGE KITTER Height 49.02 06/01/2014 6:35 PM EDGE KITTER Body Mass Index documented in this encounter Discharge Instructions * Instructions* Halie Leung, RN - 06/01/2014 Follow up with primary dr if symptoms are not improved by the end of the week Medication as ordered * Attachments The following attachments cannot be sent through Care Everywhere.* HIP PAIN (MACEDONIAN) * BRUISES (MACEDONIAN) documented in this encounter Medications at Time of Discharge Start Date End Date Medication Sig Dispensed Refills 01/15/2013 Insulin [place], 1 Package 11 Disposable, (BD INSULIN PEN [...] Before meals, at bedtime, and as needed 04/29/2014 08/10/2014 ibuprofen (MOTRIN) 800 mg Take 1 Tab by 90 Tab 2 tabletIndications: mouth every 8 Patellofemoral arthralgia hours as of left knee needed for Pain, Mild. 01/11/2015 dabigatran etexilate Take 150 mg 0 (PRADAXA) 150 mg Capsule by mouth 2 times daily. 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 12/29/2014 lurasidone (LATUDA) 120 Take 140 mg [...] ED Notes * Jim Ramirez MD - 06/01/2014 6:40 PM EDGE KITTER HISTORY OF PRESENT ILLNESS Ayden Odom, a 44 y.o. female presents to the ED with a Chief Complaint o f Fall HPI Comments: Here after fall 1 week ago landing on R hip, did the same thing ea rlier today. complains of R hip pain with palpation, motion and bearing weight. Out of her hydrocodone. Fall Pertinent negatives include no fever and no abdominal pain. REVIEW OF SYSTEMS Review of Systems Constitutional: Negative for fever, activity change, appetite change, fatigue an d unexpected weight change. HENT: Negative for congestion. Respiratory: Negative for shortness of breath. Cardiovascular: Negative for chest pain. Gastrointestinal: Negative for abdominal pain. Genitourinary: Negative for menstrual problem. Musculoskeletal: Positive for arthralgias and gait problem. Negative for neck st iffness. Neurological: Negative for weakness. PAST MEDICAL HISTORY REVIEWED MEDICAL Patient has a past medical history of [...] mercedes(784.0); Bipolar disorder, unspecified; Seizure disorder; Acute UT (03/2010); and CHF (congestive heart failure). She also has no past medical history of Can cer of breast (female), Ovarian cancer, Endometrial cancer, BRCA1 positive, Radi ation therapy, Chemotherapy, Malignant hyperthermia, Latex sensitivity, Unspecif ied adverse effect of anesthesia, Obstructive sleep apnea (adult) (pediatric), D ifficult intubation, or Temporomandibular joint disorders, unspecified. SURGICAL Patient has past surgical history that includes hm mammography (1999); surgical other (1997); carpal tunnel release (2001); acrominoplasty (04/29/07); blood tr ansfusion; job and bso (1995); sigmoidoscopy flx dx w/collj spec br/wa if pfrmd (04/19/2009); cystoscopy; hemorrhoidectomy (08/03/2010); excisional biopsy; append ectomy; section; hysterectomy; tubal ligation (1994); cholecystectomy ( 1999); and colonoscopy flx dx w/collj spec when pfrmd (08/23/2012). FAMILY Patient's family history includes Breast Cancer in [...] in her mother and another family member. SOCIAL reports that she has been smoking Cigarettes. She has a 54 pack-year smoking h istory. She has never used smokeless tobacco. She reports that she currently eng ages in sexual activity. She reports that she does not drink alcohol or use illi cit drugs. PROBLEM LIST Patient has Unspecified Asthma; Bipolar Disorder, Unspecified; [...] right; Ulnar tunnel syndrome; Amphetamine abuse, continuous; and Patellofemoral arthralgia of left k nee on her problem list. ALLERGIES Aloe vera; Doxycycline; Tape; Xanax; and Zofran HOME MEDICATIONS Patient's Home Medications Current Home Medications ACCU-CHEK ACTIVE CARE [facility] ALBUTEROL (PROAIR HFA) 90 MCG/ACTUATION HFA INHALER ATORVASTATIN (LIPITOR) 20 MG TABLET COMBIVENT RESPIMAT 20-100 MCG/ACTUATION INHALATION AERO DABIGATRAN ETEXILATE (PRADAXA) 150 MG CAPSULE FLUTICASONE (FLONASE) 50 MCG/SPRAY BOTH NOSTRIL SPSN FUROSEMIDE (LASIX) 40 MG TABLET GABAPENTIN (NEURONTIN) 800 MG TABLET HYDROCODONE-ACETAMINOPHEN (NORCO) 5-325 MG TABLET IBUPROFEN (MOTRIN) 600 MG TABLET IBUPROFEN (MOTRIN) 800 MG TABLET INSULIN ASPART (NOVOLOG FLEXPEN) 100 UNIT/ML SUBCUT INPN INSULIN GLARGINE (LANTUS) 100 UNIT/ML SUBCUT INSULIN NEEDLES, DISPOSABLE, (BD INSULIN PEN NEEDLE UF SHORT) 31 X 5/16 " MISC NDLE LORATADINE (CLARITIN) 10 MG TABLET LORAZEPAM (ATIVAN) 0.5 MG TABLET LURASIDONE (LATUDA) 120 MG TABLET TABLET MECLIZINE (ANTIVERT) 25 MG TABLET MELOXICAM (MOBIC) 7.5 MG TABLET METHYLPREDNISOLONE (MEDROL DOSPACK) 4 MG TABLETS, DOSE PACK OMEPRAZOLE (PRILOSEC) 20 MG TABLET, DELAYED RELEASE (E.C.) OXCARBAZEPINE (TRILEPTAL) 150 MG ORAL TABLET OXYGEN-AIR DELIVERY SYSTEMS MISC LEISA POTASSIUM CHLORIDE ORAL SPIRIVA WITH HANDIHALER 18 MCG CAPSULE SUMATRIPTAN (IMITREX) 100 MG ORAL TABLET TOPIRAMATE (TOPAMAX) 100 MG ORAL TABLET TRAMADOL (ULTRAM) 50 MG TABLET TRAMADOL (ULTRAM) 50 MG TABLET TRAZODONE (DESYREL) 100 MG TABLET VENLAFAXINE (EFFEXOR XR) 150 MG EXTENDED RELEASE 24 HOUR CAPSULE Medications Modified during this Encounter Medications Discontinued during this Encounter PHYSICAL EXAM INITIAL VS BP: 128/84 mmHg (06/01/141834), Heart Rate (Monitored): 93 bpm (06/01/141834), Resp: 18 (06/01/141834), Temp: 96.8 F (36 C) (06/01/141834), Temp src: Ty mpanic (06/01/141834), SpO2: 94 % (06/01/141834), Height: 5' 2" (157.5 cm) (1834), Weight: 121.564 kg (06/01/141834), BMI (Calculated): 49.12 (06/01) No LMP recorded. Patient has had a hysterectomy. Physical Exam Nursing note and vitals reviewed. Constitutional: She is oriented to person, place, and time. She appears well-dev eloped and well-nourished. Morbid obesity HENT: Head: Normocephalic and atraumatic. Right Ear: [...] are normal. Musculoskeletal: Normal range of motion. Tenderness: R lateral hip area, increas ed with motion. Neurological: She is alert and oriented to person, place, and time. Skin: Skin is warm and dry. DIAGNOSTICS LAB: RADIOLOGY: XR HIP 2+ VW RIGHT Radiologist Impression: Impression: No acute osseous abnormality. Electronically Signed By: Andrea Nolan MD, Signed On: 06/01/2014 7:25 PM EKG: PROCEDURES Procedures MEDICAL DECISION MAKING AND PLAN OF CARE REEVALUATION CASE DISCUSSED Medications Administered During the ED Stay from 06/01/2014 1815 to 06/01/2014 1 950 Date/Time Order Dose Route Action 06/01/2014 1846 fentaNYL PF (SUBLIMAZE) 50 mcg/mL injection 100 mcg 100 mcg IM Given . New Prescriptions for this Encounter HYDROCODONE-ACETAMINOPHEN (NORCO) 5-325 MG TABLET Take 1 Tab by mouth every 4 hours as needed for Pain, Moderate. LAST VITALS BP: 128/84 mmHg (06/01/141834), Heart Rate (Monitored): 93 bpm (06/01/141834), Resp: 18 (06/01/141834), Temp: 96.8 F (36 C) (06/01/141834), Temp src: Ty mpanic (06/01/141834), SpO2: 94 % (06/01/141834) CLINICAL IMPRESSION Final diagnoses: Fall, initial encounter Contusion of right hip, initial encounter CODING MDM Coding Reviewed: previous chart and vitals Reviewed previous: x-ray Interpretation: x-ray DISPOSITION, EDUCATION AND MEDICATION RECONCILIATION Medications reconciled. See after visit summary for patient education on discha rged patients. Analgesia, cold, rest, follow up with PCP if symptoms worsen or persist KITTER documented in this encounter Plan of Treatment Not on filedocumented as of this encounter Procedures Comments Procedure Name Priority Date/Time Associated Diag nosis XR HIP 2 OR 3 VIEWS RT Stat 06/01/2014 7:16 PM EDGE KITTER documented in this encounter Results * XR HIP 2+ VW RIGHT (06/01/2014 7:16 PM EDGE KITTER) Specimen Impressions Performed At Impression: INTERFACE SYSTEM No acute osseous abnormality. Electronically Signed By: Andrea Nolan MD, Signed On: 06/01/2014 7:25 PM Narrative Performed At Exam: 2 views of the right hip. INTERFACE SYSTEM Indications: Right hip pain. Findings: There is an intramedullary nail transfi nuria a healed fracture deformity of the femoral diaphysis. The nail is intact. The fracture is healed. There is heterotopic ossification along the greater trochanter. No femoral neck fracture is seen. The r ight hip is intact. The visualized portions of the knee joint are unremarkable. Procedure Note Interface, [facility] Incoming Radiology Results - 06/01/2014 7:29 PM EDGE KITTER Exam: 2 views of the right hip. Indications: Right hip pain. Findings: There is an intramedullary nail transfixing a healed fracture deformity of the femoral diaphysis. The nail is intact. The fracture is healed. There is heterotopic ossification along the greater trochanter. No femoral neck fracture is seen. The right hip is intact. The visualized portions of the knee joint are unremarkable. IMPRESSION Impression: No acute osseous abnormality. Electronically Signed By: Andrea Nolan MD, Signed On: 06/01/2014 7:25 PM Performing Organization Address City/State/Zipcode Ph one Number INTERFACE SYSTEM INTERFACE SYSTEM Refer to clinic/hospital department documented in this encounter Visit Diagnoses Diagnosis Fall, initial encounter - Primary Contusion of right hip, initial encount er documented in this encounter Administered Medications Action Date Dose Rate Site Medication Order MAR Action 06/01/2014 6:46 PM EDGE KITTER 100 mcg Arm, Rig ht fentaNYL PF (SUBLIMAZE) 50 mcg/mL Given injection 100 mcg 100 mcg, IM, ONE TIME ONLY, 1 dose, 06/01/14 at 1845, Routine documented in this encounter
--- OUTSIDE RECORDS SUMMARY | 2019-10-21 18:14 | XMS REPORT | Encounter Summary ---
Author Author [facility] Organization [facility] Address Unknown Phone Unavailable Care Team Providers Care Backer Up Name Role Phone Robby Rajan Мария KILLIAN Unavailable Phong Stephens MD PCP Unavailable Reason for Visit * Reason Comments Erroneous encounter-disregard Encounter Details Care Team Description Date Type Department Vincenzo Rodríguez MD [address] [place] [address] ERRONEOUS ENCOUNTER--DISREGARD (Primary Dx) 04/08/[address] [facility] Orthop [facility] [address] [phone] Social History Date Tobacco Use [...] history available. documented as of this encounter Progress Notes * Ai Gant - 04/28/2014 9:53 AM MINISTER HELPER Patient was a no show. Closing encounter STER HELPER documented in this encounter Plan of Treatment Not on filedocumented as of this encounter Visit Diagnoses Diagnosis ERRONEOUS ENCOUNTER--DISREGARD - Primar y documented in this encounter
--- OUTSIDE RECORDS SUMMARY | 2019-10-21 18:14 | XMS REPORT | Encounter Summary ---
Author Author [facility] Organization [facility] Address Unknown Phone Unavailable Care Team Providers Care Carbide Tool Maker Name Role Phone Robby Rajan APRN Unavailable Carlos Middleton PCP Reason for Visit * Reason Comments Medication Refill Encounter Details Care Team Description Date Type Department Phong Stephens MD NO ADDRESS ON FILE 06/25/2014 Refill [facility] Primar y Care [address] [phone] Social History Date Tobacco Use Types Packs/Day [...] encounter Miscellaneous Notes * Telephone Encounter - Phong Stephens MD - 06/25/2014 1:01 PM CIGAR MAKING SUPERVISOR No longer our patient R MAKING SUPERVISOR documented in this encounter Plan of Treatment Not on filedocumented as of this encounter Visit Diagnoses Not on filedocumented in this encounter
--- OUTSIDE RECORDS SUMMARY | 2019-10-21 18:14 | XMS REPORT | Encounter Summary ---
Author Author [facility] Organization [facility] Address Unknown Phone Unavailable Care Team Providers Care Wastewater Manager Name Role Phone Robby Rajan APRN Unavailable Carlos Middleton PCP Reason for Visit * Reason Comments Back Pain Encounter Details Care Team Description Date Type Department Lydia Fung, PUBLIC HEALTH SPECIALIST [address] [phone] Lumbar strain, subsequent encounter (Sissy jaspal Dx) 05/30/2014 Office Visit [address] [phone] Social History Date Tobacco Use [...] Signs Reading Time Taken Comments Vital Sign 126/64 05/30/2014 5:34 PM PUBLIC HEALTH SPECIALIST Blood Pressure - - Pulse 36.5 C (97.7 F) 05/30/2014 5:34 PM PUBLIC HEALTH SPECIALIST Temperature - - Respiratory Rate - - Oxygen Saturation - - Inhaled Oxygen Concentration 121.6 kg (268 lb) 05/30/2014 5:34 PM PUBLIC HEALTH SPECIALIST Weight 158.8 cm (5' 2.5") 05/30/2014 5:34 PM PUBLIC HEALTH SPECIALIST Height 48.24 05/30/2014 5:34 PM PUBLIC HEALTH SPECIALIST Body Mass Index documented in this encounter Progress Notes * Lydia Fung ARNP - 05/30/2014 5:43 PM PUBLIC HEALTH SPECIALIST SUBJECTIVE: Ayden Odom is a 44 y.o. female who complains of low back pain for 2 fidelia rs, positional with bending or lifting, without radiation down the legs. Precipi tating factors: lifted a box and twisted. Prior history of back problems: recurr ent self limited episodes of low back pain in the past. There is not numbness in the legs. OBJECTIVE: BP 126/64 | Temp(Src) 97.7 F (36.5 C) (Tympanic) | Ht 5' 2.5" (1.588 m) | Wt 268 lb (121.564 kg) | BMI 48.21 kg/m2 Patient appears to be in mild to moderate pain, antalgic gait noted. Lumbosacral spine area reveals no local tenderness or mass. Painful and reduced LS ROM not ed. DTR's, motor strength and sensation normal, including heel and toe gait. P eripheral pulses are palpable. X-Ray: not indicated. ASSESSMENT: lumbar strain PLAN: For acute pain, rest, intermittent application of heat (do not sleep on heating pad), analgesics and muscle relaxants are recommended. Discussed longer term maggie atment plan of prn NSAID's and discussed a home back care exercise program with flexion exercise routine. Proper lifting with avoidance of heavy lifting discuss ed. Consider Physical Therapy and XRay studies if not improving. Call or return to clinic prn if these symptoms worsen or fail to improve as anticipated. Torado l 60mg IM today. Tramadol 50mg, #10, ordered. No refill. IC HEALTH SPECIALIST documented in this encounter Plan of Treatment Not on filedocumented as of this encounter Visit Diagnoses Diagnosis Lumbar strain, subsequent encounter - P rimary documented in this encounter Administered Medications Action Date Dose Rate Site Medication Order MAR Action 05/30/2014 5:47 PM PUBLIC HEALTH SPECIALIST 60 mg Hip, Lef t ketorolac (TORADOL) injection 60 mg Given 60 mg, IM, ONE TIME ONLY, 1 dose, 05/30/14 at 1800, Routine documented in this encounter
--- OUTSIDE RECORDS SUMMARY | 2019-10-21 18:14 | XMS REPORT | Encounter Summary ---
Author Author [facility] Organization [facility] Address Unknown Phone Unavailable Care Team Providers Care Handicraft Or Hobby Shop Manager Name Role Phone Robby Rajan APRN Unavailable Phong Stephens MD PCP Unavailable Reason for Visit * Auth/Cert Referred By Contact Referred To Contact Status Reason Specialty Diagnoses / Procedures [facility] [address] [place] [address] Closed Emergency Medicine Encounter Details Care Team Description Date Type Department Saturnino Canales MD NO ADDRESS ON FILE Urinary retention (Primary Dx) 04/18/2014 Emergency [facility] Emergency Department [address] [phone] Social History Date Tobacco Use [...] Date Medication Sig Dispensed Refills 01/15/2013 Insulin [place], 1 Package 11 Disposable, (BD INSULIN PEN [...] Before meals, at bedtime, and as needed 01/11/2015 dabigatran etexilate Take 150 mg 0 (PRADAXA) 150 mg Capsule by mouth 2 times daily. 12/29/2014 POTASSIUM CHLORIDE ORAL Take 20 mEq 0 by mouth daily any commodity buyer. 12/29/2014 lurasidone (LATUDA) 120 Take 140 mg [...] of this encounter Visit Diagnoses Diagnosis Urinary retention - Primary Retention of urine, unspecified documented in this encounter
--- OUTSIDE RECORDS SUMMARY | 2019-10-21 18:14 | XMS REPORT | Encounter Summary ---
Author Author [facility] Organization [facility] Address Unknown Phone Unavailable Care Team Providers Care Exhibits Manager Name Role Phone King Robby Мария KILLIAN Unavailable Phong Stephens MD PCP Unavailable Encounter Details Care Team Description Date Type Department Phong Stephens MD NO ADDRESS ON FILE 04/22/2014 Abstract [facility] [address] [phone] Social History Date Tobacco Use Types Packs/Day [...]
--- OUTSIDE RECORDS SUMMARY | 2019-10-21 18:14 | XMS REPORT | Encounter Summary ---
Author Author [facility] Organization [facility] Address Unknown Phone Unavailable Care Team Providers Care Senior Physical Therapist Name Role Phone Robby Rajan APRN Unavailable Phong Stephens MD PCP Unavailable Reason for Visit * Reason Comments Medication Refill Encounter Details Care Team Description Date Type Department Lorraine Hathaway MD [address] [place] [address] 04/17/2014 Refill [facility] Primar y Care [address] [phone] Social History Date Tobacco Use [...]
--- OUTSIDE RECORDS SUMMARY | 2019-10-21 18:14 | XMS REPORT | Encounter Summary ---
Author Author [facility] Organization [facility] Address Unknown Phone Unavailable Care Team Providers Care Space Studies Faculty Member Name Role Phone King Robby Мария KILLIAN Unavailable Phong Stephens MD PCP Unavailable Reason for Referral * Eval and Treat (Routine) Referred By Contact Referred To Contact Status Reason Specialty Diagnoses / Procedures Vincenzo Rodríguez MD [address] [place] [address] [facility] Physical Therapy [address] [place] [address] Closed Physical Therapy Diagnoses Knee contusion, left, initial encounter Reason for Visit * Reason Comments Knee Pain Lt Knee Pain Encounter Details Care Team Description Date Type Department Vincenzo Rodríguez MD [address] [place] [address] Knee contusion, left, initial encounter (Primary Dx) 04/09/2014 Office Visit [facility] [place] [address] [place] [address] Social History Date Tobacco Use [...] Signs Reading Time Taken Comments Vital Sign 136/84 04/09/2014 2:06 PM FIRE HOSE CURER Blood Pressure - - Pulse - - Temperature - - Respiratory Rate - - Oxygen Saturation - - Inhaled Oxygen Concentration 121.6 kg (268 lb) 04/09/2014 2:06 PM FIRE HOSE CURER Weight 158.8 cm (5' 2.5") 04/09/2014 2:06 PM FIRE HOSE CURER Height 48.24 04/09/2014 2:06 PM FIRE HOSE CURER Body Mass Index documented in this encounter Progress Notes * SatinderRobby Мария, QUALITY ASSURANCE LAB TECHNICIAN - 04/09/2014 2:00 PM FIRE HOSE CURER fell about two weeks ago taking a dog out to the bathroom. the dog went to [employer] after a cast and was tangled in the leash. she went down and the front of her left knee banged anteriorly on concrete. she has chronic back problems she states, it may be a little more sore not bad s lata the fall. the pain does not radiate from her back down. the pain is anterior left knee an d a little bit lateral left knee. the pain goes to the middle third area of her left fibula. she gets swelling left knee calf and foot and ankle late in the day especially. she has pain with flexion mainly. she has some pain when she walks. she fell [id number] and was seen in urgent care [id number]. she was given tramadol and [facility], she thinks he is an A PN, this is where she normally gets her health care. On exam, she walks with a flexed knee. Antalgic gait pain to the front of her k nee. Patellofemoral joint area. There is no effusion. No warmth no erythema. She is able to straight leg raise indicating extensors are intact. About 4 inc hes to 6 inches, off of the exam table. Weakness noted secondary to pain. I fe el limitation of motion of flexion, which reproduces anterior knee, pain, as wel l. Negative Imtiaz maneuver. There is no laxity or instability. Quad is fir ing. Supple calf. No swelling in her calf foot or ankle. Negative Homans sign . X-ray show retained hardware status post ORIF femur fracture. Some mild arthrit ic changes left knee. No acute bony injury noted. Left knee. Assessment contusion, left, knee, mild or early arthritis. Plan I think her walking with an antalgic flexed knee. Gait is exacerbating the problem of given her prescription for a front wheeled walker. Physical, therapy 3 times a week 12 visits ordered, motion. Strength, modalities when necessary, of given her exercises to do 2-3 times a day. On her own at, home every day. Both legs. She has Motrin at, home 600, milligrams she's to take this 3 times a day with food, wean from the old TRAM. If she, can. We'll recheck her 3 weeks in the office. She is to call sooner when necessary HOSE CURER documented in this encounter Plan of Treatment Order Schedule Name Type Priority Associated Diag noses Ordered: 04/09/2014 AMB REFERRAL TO PHYSICAL Outpatient Routine Knee contusion, left, THERAPY Referral initial encounter documented as of this encounter Visit Diagnoses Diagnosis Knee contusion, left, initial encounter - Primary documented in this encounter
--- OUTSIDE RECORDS SUMMARY | 2019-10-21 18:14 | XMS REPORT | Encounter Summary ---
Author Author [facility] Organization [facility] Address Unknown Phone Unavailable Care Team Providers Care Marble Setter Helper Name Role Phone Robby Rajan APRN Unavailable Carlos Middleton PCP Reason for Visit * Reason Comments Arm pain left sided arm pain that st arted sunday, pt took lyrica with no relief. refereed to ER by Dr. Middleton because th e pt is on pradaxa and has increased shortness of air and arm pain. Encounter Details Care Team Description Date Type Department Evelio Lewis MD [address] [place] [address] Fibromyalgia muscle pain (Primary Dx); Neuropathic pain 07/27/2014 Emergency [facility] Emergency Department [address] [address] Social History Date Tobacco Use [...] Signs Reading Time Taken Comments Vital Sign 139/97 07/27/2014 5:47 PM VOCATIONAL COORDINATOR Blood Pressure 98 07/27/2014 5:47 PM VOCATIONAL COORDINATOR Pulse 36.6 C (97.9 F) 07/27/2014 5:47 PM VOCATIONAL COORDINATOR Temperature 20 07/27/2014 5:47 PM VOCATIONAL COORDINATOR Respiratory Rate 97% 07/27/2014 5:47 PM VOCATIONAL COORDINATOR Oxygen Saturation - - Inhaled Oxygen Concentration 121.6 kg (268 lb) 07/27/2014 5:47 PM VOCATIONAL COORDINATOR Weight 157.5 cm (5' 2") 07/27/2014 5:47 PM VOCATIONAL COORDINATOR Height 49.02 07/27/2014 5:47 PM VOCATIONAL COORDINATOR Body Mass Index documented in this encounter Discharge Instructions * Instructions* Evelio Lewis MD - 07/27/2014 Stay well hydrated and check back with your doctor for continued problems THANK YOU FOR CHOOSING [facility]! Our goal is to provide you with [...] attachments cannot be sent through Care Everywhere.* FIBROMYALGIA (NAURUAN) documented in this encounter Medications at Time of Discharge Start Date End Date Medication Sig Dispensed Refills 01/15/2013 Insulin [place], 1 Package 11 Disposable, (BD INSULIN PEN [...] Before meals, at bedtime, and as needed 07/27/2014 08/01/2014 traMADol (ULTRAM) 50 mg Take 1-2 Tabs 30 Tab 0 tablet (50-100 mg) by mouth every 6 hours as needed for Pain. 04/29/2014 08/10/2014 ibuprofen (MOTRIN) 800 mg Take 1 Tab by 90 Tab 2 tabletIndications: mouth every 8 Patellofemoral arthralgia hours as of left knee needed for Pain, Mild. 01/11/2015 dabigatran etexilate Take 150 mg 0 (PRADAXA) 150 mg Capsule by mouth 2 times daily. 12/29/2014 POTASSIUM CHLORIDE ORAL Take 20 mEq 0 by mouth daily padded products finisher. 12/29/2014 lurasidone (LATUDA) 120 Take 140 mg [...] ED Notes * Evelio Lewis MD - 07/27/2014 6:32 PM VOCATIONAL COORDINATOR HISTORY OF PRESENT ILLNESS Ayden Odom, a 44 y.o. female presents to the ED with a Chief Complaint o f Arm pain Subjective HPI Comments: Pt worried, they jenaro her INR and it was only 1.2, has been on pra beto r/t coumadin the last 2 mo, C/o pain all extremities and is worried she ahuja s blood clots. Arm pain Associated symptoms: no back pain and no fever History provided by: The patient REVIEW OF SYSTEMS Review of Systems Constitutional: Negative for fever and chills. HENT: Negative for congestion and sore throat. Respiratory: Positive for shortness of breath. Negative for cough. Gastrointestinal: Negative for nausea, vomiting, abdominal pain and diarrhea. Musculoskeletal: Negative for back pain. Neurological: Negative for dizziness, light-headedness and headaches. PAST MEDICAL HISTORY REVIEWED MEDICAL: Patient [...] disorder, unspecified; Seizure disorder; Acute [place] (03/2010); and CHF (congestive heart failure). She [...] MISC NDLE LORATADINE (CLARITIN) 10 MG TABLET LURASIDONE (LATUDA) 120 MG TABLET TABLET OMEPRAZOLE (PRILOSEC) 20 MG TABLET, DELAYED RELEASE (E.C.) OXYGEN-AIR DELIVERY SYSTEMS MISC LEISA POTASSIUM CHLORIDE ORAL SUMATRIPTAN (IMITREX) 100 MG ORAL TABLET TOPIRAMATE (TOPAMAX) 100 MG ORAL TABLET TRAZODONE (DESYREL) 100 MG TABLET VENLAFAXINE (EFFEXOR XR) 150 MG EXTENDED RELEASE 24 HOUR CAPSULE Medications Modified during this Encounter Medications Discontinued during this Encounter Objective PHYSICAL EXAM INITIAL VS BP: 139/97 mmHg (07/27/141746), Heart Rate (Monitored): (not recorded), Resp: 2 0 (07/27/141746), Temp: 97.9 F (36.6 C) (07/27/141746), Temp src: Tympanic (07/27/141746), SpO2: 97 % (07/27/141746), Height: 5' 2" (157.5 cm) (07/27/141746), Weight: 121.564 kg (07/27/141746), BMI (Calculated): 49.12 (07/27/14 47) No LMP recorded. Patient has had a hysterectomy. Physical Exam Constitutional: She is oriented to person, place, and time. She appears well-dev eloped and well-nourished. HENT: Head: Normocephalic and atraumatic. Nose: Nose normal. Mouth/Throat: Oropharynx is clear and moist. Eyes: Pupils are equal, round, and reactive to light. Neck: Normal range of motion. Neck supple. Cardiovascular: Normal rate, regular rhythm, normal heart sounds and intact dist al pulses. No murmur heard. Pulmonary/Chest: Effort normal and breath sounds normal. No respiratory distress . Abdominal: Soft. Bowel sounds are normal. There is no tenderness. Musculoskeletal: Normal range of motion. She exhibits no edema. Lymphadenopathy: She has no cervical adenopathy. Neurological: She is alert and oriented to person, place, and time. Skin: Skin is warm and dry. Psychiatric: She has a normal mood and affect. Her behavior is normal. DIAGNOSTICS LAB: Results for orders placed during the hospital encounter of 07/27/14 (from the [facility] 24 hour(s)) D-DIMER Result Value Ref Range D-DIMER QUANT <100.0 0.0-400.0 ng/mL CBC WITH DIFFERENTIAL Result Value Ref Range WBC 10.5 (*) 3.0-10.4 K/uL RBC 4.47 3.77-4.97 M/uL HEMOGLOBIN 14.1 11.9-15.0 g/dL HEMATOCRIT 42.5 34.4-43.6 % MCV 95.1 79.0-100.0 fL MCH 31.5 28.0-34.0 pg MCHC 33.2 31.0-35.0 g/dL RDW 13.4 11.5-15.1 % PLATELETS 171 148-408 K/uL MPV 8.8 7.4-10.6 fL NEUTROPHILS 58 43-73 % LYMPHOCYTES 30 19-47 % MONOCYTES 5 3-9 % EOSINOPHILS 7 (*) 0-6 % BASOPHILS 1 0-1 % NEUTROPHIL ABSOLUTE 6.01 1.30-7.60 K/uL LYMPHOCYTE ABSOLUTE 3.08 0.60-4.90 K/uL MONOCYTE ABSOLUTE 0.53 0.10-0.90 K/uL EOSINOPHIL ABSOLUTE 0.76 (*) 0.00-0.40 K/uL BASOPHILS ABSOLUTE 0.07 0.00-0.10 K/uL COMPREHENSIVE METABOLIC PANEL Result Value Ref Range SODIUM 137 134-145 mmol/L POTASSIUM 3.7 3.5-5.1 mmol/L CHLORIDE 106 98-107 mmol/L CO2 21 (*) 22-31 mmol/L CALCIUM 8.2 (*) 8.5-10.1 mg/dL BUN 15 7-20 mg/dL CREATININE 0.78 0.51-0.95 mg/dL GLUCOSE 94 70-100 mg/dL TOTAL PROTEIN 6.7 6.4-8.2 g/dL ALBUMIN 3.5 3.4-5.0 g/dL BILIRUBIN TOTAL 0.2 <=1.1 mg/dL ALKALINE PHOSPHATASE 93 40-136 U/L AST 12 10-40 U/L ALT 32 25-70 U/L GFR >60 >=60 mL/min/1.73 sq meter GFR, >60 >=60 mL/min/1.73 sq meter ANION GAP 10 4-20 mmol/L RADIOLOGY: XR CHEST PA AND LATERAL Radiologist Impression: IMPRESSION: Negative chest. Electronically Signed By: Marty Adams MD, Signed On: 07/27/2014 7:03 PM EKG: PROCEDURES Procedures MEDICAL DECISION MAKING AND PLAN OF CARE Educated pt regarding her pradaxa and that there is no testing for levels of thi s, the INR is irrelevant. D dimer ordered to reassure pt,cmp and cbc, nubain for pain, care of pt transfer red to dr lewis at 1830 REEVALUATION I assumed care from DENNY Farah, at 1830. Pt awaiting D dimer and la bs. Labs do not show significant abnormalities to account for her generalized pa in. She has improved pain after Nubain shot. D dimer negative for new clots. Steve l treat as outpt with Tramadol as she has history of overdosing and abusing othe r stronger narcotic medicines. Updated pt on results and advised to continue on Pradaxa and to have further follow up with Dr. Middleton in [place] for any furth er issues or continued concerns CASE DISCUSSED Medications Administered During the ED Stay from 07/27/2014 1637 to 07/27/2014 1 948 Date/Time Order Dose Route Action 07/27/2014 1818 nalBUPHine (NUBAIN) injection 10 mg 10 mg IM Given . New Prescriptions for this Encounter TRAMADOL (ULTRAM) 50 MG TABLET Take 1-2 Tabs (50-100 mg) by mouth every 6 ho urs as needed for Pain. LAST VS BP: 139/97 mmHg (07/27/141746), Heart Rate (Monitored): (not recorded), Resp: 2 0 (07/27/141746), Temp: 97.9 F (36.6 C) (07/27/141746), Temp src: Tympanic (07/27/141746), SpO2: 97 % (07/27/141746) CLINICAL IMPRESSION Final diagnoses: [729.1] Fibromyalgia muscle pain (Primary) [729.2] Neuropathic pain CODING MDM Coding Reviewed: vitals and previous chart Reviewed previous: labs Interpretation: labs and SP02 I have reviewed nursing notes and agree unless otherwise mentioned. DISPOSITION, EDUCATION AND MEDICATION RECONCILIATION Medications reconciled. See after visit summary for patient education on discha rged patients. TIONAL COORDINATOR * Lakeisha Abdi RN - 07/27/2014 4:53 PM VOCATIONAL COORDINATOR Pt sitting in waiting room. Made aware that we are waiting on critical pt to [facility] and that we will get here to treatment room as soon as possible. Pt voiced "ok'. TIONAL COORDINATOR documented in this encounter Plan of Treatment Not on filedocumented as of this encounter Procedures Comments Procedure Name Priority Date/Time Associated Diag nosis XR CHEST PA AND LATERAL 2 Stat 07/27/2014 VW 6:34 PM VOCATIONAL COORDINATOR CBC WITH DIFFERENTIAL Stat 07/27/2014 6:20 PM VOCATIONAL COORDINATOR D-DIMER Stat 07/27/2014 6:20 PM VOCATIONAL COORDINATOR COMPREHENSIVE METABOLIC Stat 07/27/2014 PANEL 6:20 PM VOCATIONAL COORDINATOR documented in this encounter Results * XR CHEST PA AND LATERAL (07/27/2014 6:34 PM VOCATIONAL COORDINATOR) Specimen Impressions Performed At IMPRESSION: INTERFACE SYSTEM Negative chest. Electronically Signed By: Marty pritchard MD, Signed On: 07/27/2014 7:03 PM Narrative Performed At RADIOLOGIC EXAM: Chest 2 view, PA and lateral INTERF NOE SYSTEM INDICATION:Left arm pain. Chest pain. S hortness of breath. FINDINGS: Heart size and pulmonary vasc ularity are normal. Lungs are clear. There is no pneumothorax. Comparison to June 14, 2014. Procedure Note Interface, [facility] Incoming Radiology Results - 07/27/2014 7:07 PM VOCATIONAL COORDINATOR RADIOLOGIC EXAM: Chest 2 view, PA and lateral INDICATION:Left arm pain. Chest pain. Shortness of breath. FINDINGS: Heart size and pulmonary vascularity are normal. Lungs are clear. There is no pneumothorax. Comparison to June 14, 2014. IMPRESSION IMPRESSION: Negative chest. Electronically Signed By: Marty Adams MD, Signed On: 07/27/2014 7:03 PM Performing Organization Address City/State/Zipcode Ph one Number INTERFACE SYSTEM INTERFACE SYSTEM Refer to clinic/hospital department * COMPREHENSIVE METABOLIC PANEL (07/27/2014 6:20 PM VOCATIONAL COORDINATOR) SODIUM 137 134 - 145 mmol/L [facility] [place] POTASSIUM 3.7 3.5 - 5.1 mmol/L [facility] CHLORIDE 106 98 - 107 mmol/L [facility] CO2 21 (L) 22 - 31 mmol/L [facility] CALCIUM 8.2 (L) 8.5 - 10.1 mg/dL [facility] BUN 15 7 - 20 mg/dL [facility] CREATININE 0.78 0.51 - 0.95 mg/dL [facility] GLUCOSE 94 70 - 100 mg/dL [facility] TOTAL PROTEIN 6.7 6.4 - 8.2 g/dL [facility] ALBUMIN 3.5 3.4 - 5.0 g/dL [facility] BILIRUBIN TOTAL 0.2 <=1.1 mg/dL [facility] ALKALINE 93 40 - 136 U/L [facility] PHOSPHAT[facility] AST 12 10 - 40 U/L [facility] ALT 32 25 - 70 U/L [facility] GFR >60 >=60 mL/min/1.73 sq [facility] Comment: meter LABORATORY eGFR has not been validated [facility] for use in the elderly (> 70 [...] result. GFR, >60 >=60 mL/min/1.73 sq [facility] ANION GAP 10 4 - 20 mmol/L [facility] Specimen Blood Performing Organization Address City/State/Zipcome Ph one Number [facility] CLIA# [id number] [place] [address] - [place] [address] [place] [address] * CBC WITH DIFFERENTIAL (07/27/2014 6:20 PM VOCATIONAL COORDINATOR) Pathologist [facility] WBC 10.5 (H) 3.0 - 10.4 K/uL [facility] RBC 4.47 3.77 - 4.97 M/uL [facility] HEMOGLOBIN 14.1 11.9 - 15.0 g/dL [facility] HEMATOCRIT 42.5 34.4 - 43.6 % [facility] MCV 95.1 79.0 - 100.0 fL [facility] MCH 31.5 28.0 - 34.0 pg [facility] MCHC 33.2 31.0 - 35.0 g/dL [facility] RDW 13.4 11.5 - 15.1 % [facility] PLATELETS 171 148 - 408 K/uL [facility] MPV 8.8 7.4 - 10.6 fL [facility] NEUTROPHILS 58 43 - 73 % [facility] LYMPHOCYTES 30 19 - 47 % [facility] MONOCYTES 5 3 - 9 % [facility] EOSINOPHILS 7 (H) 0 - 6 % [facility] BASOPHILS 1 0 - 1 % [facility] NEUTROPHIL 6.01 1.30 - 7.60 K/uL [facility] LYMPHOCYTE 3.08 0.60 - 4.90 K/uL [facility] MONOCYTE 0.53 0.10 - 0.90 K/uL [facility] EOSINOPHIL 0.76 (H) 0.00 - 0.40 K/uL [facility] BASOPHILS 0.07 0.00 - 0.10 K/uL [facility] Specimen Blood Performing Organization Address City/State/Zipcode Ph one Number [facility] CLIA# [id number] [place] [address] - [place] [address] [place] [address] * D-DIMER (07/27/2014 6:20 PM VOCATIONAL COORDINATOR) Pathologist [facility] D-DIMER QUANT <100.0 0.0 - 400.0 ng/mL [facility] Specimen Blood Narrative Performed At D-dimer Interpretation [facility] Negative 0 - 400 ng/mL [facility] Positive >400 ng/mL [facility] (Concentrations expressed in ng/mL of D -Dimer Unit (DDU)) Clinical performance data were determin ed on an outpatient population. Because D-dimer results are likely to be elevat ed in an inpatient population due to stasis, chronic illness, post-surgery a nd other non-specific conditions known to elevate D-dimer levels, the clinical ut ility of a negative result is not likely to be realized in an inpatient populati on. Therefore, clinical performance results should not be extrapolated to a n inpatient population. Performing Organization Address City/State/Zipcode Ph one Number [facility] CLIA# [id number] [place] [address] - [place] [address] [facility] documented in this encounter Visit Diagnoses Diagnosis Fibromyalgia muscle pain - Primary Mylagia and myositis, unspecified Neuropathic pain Neuralgia, neuritis, and radiculitis, u nspecified documented in this encounter Administered Medications Action Date Dose Rate Site Medication Order MAR Action 07/27/2014 6:18 PM VOCATIONAL COORDINATOR 10 mg Buttock, Left nalBUPHine (NUBAIN) injection 10 mg Given 10 mg, IM, ONE TIME ONLY, 1 dose, 07/27/14 at 1815, Routine documented in this encounter
--- OUTSIDE RECORDS SUMMARY | 2019-10-21 18:14 | XMS REPORT | Encounter Summary ---
Author Author [facility] Organization [facility] Address Unknown Phone Unavailable Care Team Providers Care Gold Burnisher Name Role Phone Franco Rajanory Мария KILLIAN Unavailable Carlos Middleton PCP Reason for Visit * Reason Comments Cough x2 week Pt stated it has c aused her to be short of air and have a difficult time breathing. Dizziness Encounter Details Care Team Description Date Type Department Lydia Fung, DRAWING IN MACHINE TENDER HELPER [address] [place] [address] [phone] Acute bronchitis (Primary Dx) 08/06/2014 Office Visit [facility] [place] [address] [place] [address] Social History Date Tobacco Use [...] Signs Reading Time Taken Comments Vital Sign 108/63 08/06/2014 3:07 PM TEACHERS ASSISTANT Blood Pressure 97 08/06/2014 3:07 PM TEACHERS ASSISTANT Pulse 37.7 C (99.8 F) 08/06/2014 3:07 PM TEACHERS ASSISTANT Temperature - - Respiratory Rate 95% 08/06/2014 3:07 PM TEACHERS ASSISTANT Oxygen Saturation - - Inhaled Oxygen Concentration 117.9 kg (260 lb) 08/06/2014 3:07 PM TEACHERS ASSISTANT Weight 158.8 cm (5' 2.5") 08/06/2014 3:07 PM TEACHERS ASSISTANT Height 46.8 08/06/2014 3:07 PM TEACHERS ASSISTANT Body Mass Index documented in this encounter Progress Notes * Lydia Fung ARNP - 08/06/2014 3:39 PM TEACHERS ASSISTANT SUBJECTIVE: Ayden Odom is a 44 y.o. female who complains of congestion, sore throat, post nasal drip and wheezing/SOA for 14 days. She denies a history of fevers and has a history of COPD. Patient does smoke cigarettes. Using albuterol neb tx at home; helps briefly, but quickly gets SOA again. OBJECTIVE: BP 108/63 | Pulse 97 | Temp(Src) 99.8 F (37.7 C) | Ht 5' 2.5" (1.588 m) | Wt 260 lb (117.935 kg) | BMI 46.77 kg/m2 | SpO2 95% Appearance: oriented to person, place, and time and ill-appearing. Eye: normal ENT- bilateral TM normal without fluid or infection, neck without nodes, throat normal without erythema or exudate, post nasal drip noted and nasal mucosa conge sted. Chest - wheezing noted bilat, rhonchi noted bilat. ASSESSMENT: bronchitis PLAN: See additional orders in EMR. Symptomatic therapy suggested: push fluids, rest, antibiotics indicated as prescribed, encouraged very strongly to quit smoking an d return office visit prn if symptoms persist or worsen. Call or return to clin ic prn if these symptoms worsen or fail to improve as anticipated. Z-pack ordere d. Medrol dose pack ordered. Duoneb nebulizer tx ordered. CXR taken in clinic ; no acute findings noted on prelim read. Wheezing improved after duoneb treatme nt in clinic today. O2 sat 97% post neb tx. Pt instructed on pursed lip breathi ng to help reduce SOA. Pt demonstrated proper pursed lip breathing. Discussed s moking cessation at great length with patient. She states she is planning on qu itting. HERS ASSISTANT documented in this encounter Plan of Treatment Not on filedocumented as of this encounter Visit Diagnoses Diagnosis Acute bronchitis - Primary documented in this encounter Administered Medications Action Date Dose Rate Site Medication Order MAR Action 08/06/2014 3:51 PM TEACHERS ASSISTANT 3 mL Other (C omment) ipratropium-albuterol (DUONEB) 0.5 mg-3 Given mg(2.5 mg base)/3 mL inhalation solutio n 3 mL 3 mL, Inhalation, ONE TIME ONLY RESPIRATORY, 1 dose, Yeni 08/06/14 at 1600 , Routine documented in this encounter
--- OUTSIDE RECORDS SUMMARY | 2019-10-21 18:14 | XMS REPORT | Encounter Summary ---
Author Author [facility] Organization [facility] Address Unknown Phone Unavailable Care Team Providers Care Academic Computing Director Name Role Phone SatinderRobby Мария PROTOZOOLOGIST Unavailable Phong Stephens MD PCP Unavailable Reason for Visit * Reason Comments Knee Injury on going inj, fell on it ag ain today Encounter Details Care Team Description Date Type Department Lydia Fung, ASSOCIATE JUSTICE [address] [address] [phone] Knee pain, left (Primary Dx) 04/07/2014 Office Visit [facility] [place] [address] [place] [address] Social History Date Tobacco Use [...] Signs Reading Time Taken Comments Vital Sign 142/72 04/07/2014 4:34 PM PATIENT NAVIGATOR Blood Pressure 90 04/07/2014 4:34 PM PATIENT NAVIGATOR Pulse 36.3 C (97.4 F) 04/07/2014 4:34 PM PATIENT NAVIGATOR Temperature - - Respiratory Rate 95% 04/07/2014 4:34 PM PATIENT NAVIGATOR Oxygen Saturation - - Inhaled Oxygen Concentration 121.6 kg (268 lb) 04/07/2014 4:34 PM PATIENT NAVIGATOR Weight 158.8 cm (5' 2.5") 04/07/2014 4:34 PM PATIENT NAVIGATOR Height 48.24 04/07/2014 4:34 PM PATIENT NAVIGATOR Body Mass Index documented in this encounter Progress Notes * Lydia Fung ARNP - 04/07/2014 4:37 PM PATIENT NAVIGATOR HISTORY OF PRESENT ILLNESS Ayden Odom, a 43 y.o. female. The history is provided by the patient. Knee Injury Location: Knee Time since incident: 2 hours Knee location: L knee States she fell on her knee again 2 hours ago. States was given tramadol for pa in, but not helping her pain at all. Has an appointment with ortho tomorrow. REVIEW OF SYSTEMS Review of Systems Constitutional: Negative. HENT: Negative. Respiratory: Negative. Cardiovascular: Negative. Gastrointestinal: Negative. Musculoskeletal: Positive for joint swelling. PHYSICAL EXAM BP 142/72 | Pulse 90 | Temp(Src) 97.4 F (36.3 C) | Ht 5' 2.5" (1.588 m) | Wt 268 lb (121.564 kg) | BMI 48.21 kg/m2 | SpO2 95% Physical Exam Constitutional: She is oriented to person, place, and time. She appears well-dev eloped and well-nourished. No distress. HENT: Head: Normocephalic and atraumatic. Neck: Normal range of motion. Musculoskeletal: Left knee: She exhibits decreased range of motion and swelling. She exhibit s normal alignment. Tenderness found. Neurological: She is alert and oriented to person, place, and time. Skin: Skin is warm and dry. She is not diaphoretic. Psychiatric: She has a normal mood and affect. Her behavior is normal. ASSESSMENT and PLAN: ICD-9-CM ICD-10-CM 1. Knee pain, left 719.46 M25.562 ketorolac (TORADOL) injection 30 mg Toradol 30mg IM today for pain control. Continue tramadol at home. F/U with o rtho tomorrow as scheduled. ENT NAVIGATOR documented in this encounter Plan of Treatment Not on filedocumented as of this encounter Visit Diagnoses Diagnosis Knee pain, left - Primary Pain in joint, lower leg documented in this encounter Administered Medications Action Date Dose Rate Site Medication Order MAR Action 04/07/2014 4:48 PM PATIENT NAVIGATOR 30 mg Deltoid, Left ketorolac (TORADOL) injection 30 mg Given 30 mg, IM, ONE TIME ONLY, 1 dose, 04/07/14 at 1645, Routine documented in this encounter
--- OUTSIDE RECORDS SUMMARY | 2019-10-21 18:14 | XMS REPORT | Encounter Summary ---
Author Author [facility] Organization [facility] Address Unknown Phone Unavailable Care Team Providers Care Business Development Specialist Name Role Phone Robby Rajan Мария KILLIAN Unavailable Phong Stephens MD PCP Unavailable Reason for Visit * Reason Comments Follow Up F/U Lt Knee Pain Encounter Details Care Team Description Date Type Department Vincenzo Rodríguez MD [address] [place] [address] Patellofemoral arthralgia of left knee ( Primary Dx) 04/29/2014 Office Visit [facility] [address] [address] Social History Date Tobacco Use [...] Signs Reading Time Taken Comments Vital Sign 122/78 04/29/2014 10:46 AM ASSISTANT DEAN OF STUDENTS Blood Pressure - - Pulse - - Temperature - - Respiratory Rate - - Oxygen Saturation - - Inhaled Oxygen Concentration 118.8 kg (262 lb) 04/29/2014 10:46 AM ASSISTANT DEAN OF STUDENTS Weight 158.8 cm (5' 2.5") 04/29/2014 10:46 AM ASSISTANT DEAN OF STUDENTS Height 47.16 04/29/2014 10:46 AM ASSISTANT DEAN OF STUDENTS Body Mass Index documented in this encounter Progress Notes * Vincenzo Rodríguez MD - 04/29/2014 10:45 AM ASSISTANT DEAN OF STUDENTS she is better, having no pain or swelling. the knee popped the other day and sh e was much better thereafter. she has some occasional patellofemoral pain she p oints. she has had trouble with stairs which is not a new problem on exam she has mild patellofemoral pain. otherwise negative exam. there is no swelling warmth or erythema, no eccymosis. A: left knee post-traumatic patellofemoral pain P: the natural history of the problem was reviewed at length with the patient a nd options in treatment were discussed. questions and concerns answered. refill the motrin to [facility] today. I have reviewed the above and examined the patient with Franco and agree STANT DEAN OF STUDENTS documented in this encounter Plan of Treatment Not on filedocumented as of this encounter Visit Diagnoses Diagnosis Patellofemoral arthralgia of left knee - Primary Pain in joint, lower leg documented in this encounter
--- OUTSIDE RECORDS SUMMARY | 2019-10-21 18:14 | XMS REPORT | Encounter Summary ---
Author Author [facility] Organization [facility] Address Unknown Phone Unavailable Care Team Providers Care Water Safety Teacher Name Role Phone Robby Rajan SHAREBROKER Unavailable Carlos Middleton PCP Reason for Visit * Reason Comments Cough pt has had a non productive cough for approx 1 week was given prednisone for this and taken all of them with no relief, stated nothing will come up but she feels like there is alot in her chest Encounter Details Care Team Description Date Type Department Saturnino Canales MD NO ADDRESS ON FILE Acute bronchitis (Primary Dx) 06/14/2014 Emergency [facility] Emergency Department [address] [address] Social History Date Tobacco Use [...] Signs Reading Time Taken Comments Vital Sign 139/88 06/14/2014 8:08 PM NUT DEHYDRATOR OPERATOR Blood Pressure - - Pulse 37.1 C (98.7 F) 06/14/2014 8:08 PM NUT DEHYDRATOR OPERATOR Temperature 18 06/14/2014 8:08 PM NUT DEHYDRATOR OPERATOR Respiratory Rate 96% 06/14/2014 8:08 PM NUT DEHYDRATOR OPERATOR Oxygen Saturation - - Inhaled Oxygen Concentration 118.8 kg (262 lb) 06/14/2014 8:08 PM NUT DEHYDRATOR OPERATOR Weight 157.5 cm (5' 2") 06/14/2014 8:08 PM NUT DEHYDRATOR OPERATOR Height 47.92 06/14/2014 8:08 PM NUT DEHYDRATOR OPERATOR Body Mass Index documented in this encounter Discharge Instructions * Instructions* Saturnino Canales MD - 06/14/2014 no pneumonia. Restart Prednisone 40 mg daily for one week. Tessalon pearls one e very four hours as needed for cough. If a significant change in condition occurs see Dr or return to ER. documented in this encounter Medications at Time of Discharge Start Date End Date Medication Sig Dispensed Refills 01/15/2013 Insulin Medora, 1 Package 11 Disposable, (BD INSULIN PEN [...] Before meals, at bedtime, and as needed 06/14/2014 06/21/2014 predniSONE (DELTASONE) 20 Take 2 Tabs 14 Tab 0 mg tablet by mouth daily with breakfast for 7 days. 04/29/2014 08/10/2014 ibuprofen (MOTRIN) 800 mg Take 1 Tab by 90 Tab 2 tabletIndications: mouth every 8 Patellofemoral arthralgia hours as of left knee needed for Pain, Mild. 01/11/2015 dabigatran etexilate Take 150 mg 0 (PRADAXA) 150 mg Capsule by mouth 2 times daily. 12/29/2014 POTASSIUM CHLORIDE ORAL Take 20 mEq 0 by mouth daily audit mgr. 12/29/2014 lurasidone (LATUDA) 120 Take 140 mg [...] as of this encounter ED Notes * Saturnino Canales MD - 06/14/2014 8:16 PM NUT DEHYDRATOR OPERATOR HISTORY OF PRESENT ILLNESS Ayden Odom, a 44 y.o. female presents to the ED with a Chief Complaint o f Cough The history is provided by the patient. The patient arrived by private vehicle. The patient arrived from home. Cough This is a new problem. The current episode started more than 1 week ago. The pro blem occurs constantly. The problem has been gradually worsening (finished her m edrol dosepak and cough is getting some worse. ). The cough is non-productive. T here has been no fever. Associated symptoms include chills, rhinorrhea and short ness of breath. Pertinent negatives include no chest pain, no ear pain, no sore throat and no wheezing. Treatments tried: on albuterol, chronic breathing meds. Her past medical history is significant for asthma. REVIEW OF SYSTEMS Review of Systems Constitutional: Positive for chills. Negative for fever and diaphoresis. HENT: Positive for rhinorrhea. Negative for ear pain and sore throat. Respiratory: Positive for cough and shortness of breath. Negative for chest tigh tness and wheezing. Cardiovascular: Negative for chest pain. PAST MEDICAL HISTORY REVIEWED MEDICAL Patient has [...] mercedes(784.0); Bipolar disorder, unspecified; Seizure disorder; Acute HI (03/2010); and CHF (congestive heart failure). She [...] Medications Current Home Medications ACCU-CHEK ACTIVE CARE [facility] KIT ALBUTEROL (PROAIR HFA) 90 MCG/ACTUATION HFA INHALER ATORVASTATIN (LIPITOR) 20 MG TABLET COMBIVENT RESPIMAT 20-100 MCG/ACTUATION INHALATION AERO DABIGATRAN ETEXILATE (PRADAXA) 150 MG CAPSULE FLUTICASONE (FLONASE) 50 MCG/SPRAY BOTH NOSTRIL SPSN FUROSEMIDE (LASIX) 40 MG TABLET GABAPENTIN (NEURONTIN) 800 MG TABLET HYDROCODONE-ACETAMINOPHEN (NORCO) 5-325 MG TABLET HYDROCODONE-ACETAMINOPHEN (NORCO) 5-325 MG TABLET IBUPROFEN (MOTRIN) 600 MG TABLET IBUPROFEN (MOTRIN) 800 MG TABLET INSULIN ASPART (NOVOLOG FLEXPEN) 100 UNIT/ML SUBCUT INPN INSULIN GLARGINE (LANTUS) 100 UNIT/ML SUBCUT INSULIN NEEDLES, DISPOSABLE, (BD INSULIN PEN NEEDLE UF SHORT) 31 X 5/16 " [facility] NDLE LORATADINE (CLARITIN) 10 MG TABLET LORAZEPAM (ATIVAN) 0.5 MG TABLET LURASIDONE (LATUDA) 120 MG TABLET TABLET MECLIZINE (ANTIVERT) 25 MG TABLET MELOXICAM (MOBIC) 7.5 MG TABLET METHYLPREDNISOLONE (MEDROL DOSPACK) 4 MG TABLETS, DOSE PACK OMEPRAZOLE (PRILOSEC) 20 MG TABLET, DELAYED RELEASE (E.C.) OXCARBAZEPINE (TRILEPTAL) 150 MG ORAL TABLET OXYGEN-AIR DELIVERY SYSTEMS MIS LEISA POTASSIUM CHLORIDE ORAL SPIRIVA WITH HANDIHALER 18 MCG CAPSULE SUMATRIPTAN (IMITREX) 100 MG ORAL TABLET TOPIRAMATE (TOPAMAX) 100 MG ORAL TABLET TRAMADOL (ULTRAM) 50 MG TABLET TRAMADOL (ULTRAM) 50 MG TABLET TRAZODONE (DESYREL) 100 MG TABLET VENLAFAXINE (EFFEXOR XR) 150 MG EXTENDED RELEASE 24 HOUR CAPSULE Medications Modified during this Encounter Medications Discontinued during this Encounter PHYSICAL EXAM INITIAL VS BP: 139/88 mmHg (06/14/142007), Heart Rate (Monitored): 97 bpm (06/14/142007), Resp: 18 (06/14/142007), Temp: 98.7 F (37.1 C) (06/14/142007), Temp src: Tympanic (06/14/142007), SpO2: 96 % (06/14/142007), Height: 5' 2" (157.5 cm) ( 06/14/142007), Weight: 118.842 kg (06/14/142007), BMI (Calculated): 48.02 (04/18) No LMP recorded. Patient has had a hysterectomy. Physical Exam Vitals reviewed. Constitutional: She is oriented to person, [...] has no wheezes. She has no rales. No wheezes, good breath sounds Abdominal: Soft. Bowel sounds are normal. She [...] Her behavior is normal. DIAGNOSTICS LAB: RADIOLOGY: XR CHEST PA AND LATERAL (Results Pending) EKG: PROCEDURES Procedures MEDICAL DECISION MAKING AND PLAN OF CARE REEVALUATION CASE DISCUSSED . New Prescriptions for this Encounter BENZONATATE (TESSALON) 100 MG CAPSULE Take 1 Cap by mouth every 4 hours as n eeded for Cough. BENZONATATE (TESSALON) 100 MG CAPSULE Take 1 Cap by mouth every 4 hours as n eeded for Cough. PREDNISONE (DELTASONE) 20 MG TABLET Take 2 Tabs by mouth daily with breakfas t for 7 days. LAST VITALS BP: 139/88 mmHg (06/14/142007), Heart Rate (Monitored): 97 bpm (06/14/142007), Resp: 18 (06/14/142007), Temp: 98.7 F (37.1 C) (06/14/142007), Temp src: Tympanic (06/14/142007), SpO2: 96 % (06/14/142007) CLINICAL IMPRESSION Final diagnoses: Acute bronchitis CODING Coding DISPOSITION, EDUCATION AND MEDICATION RECONCILIATION Medications reconciled. See after visit summary for patient education on discha rged patients. In view of persistent nature of cough and asthma will get a CXR CXR reassuring, no pneumonia. Restart Prednisone 40 mg daily for one week. Ninoska suhas pearls one every four hours as needed for cough. If a significant change in condition occurs see Dr or return to ER. DEHYDRATOR OPERATOR documented in this encounter Plan of Treatment Not on filedocumented as of this encounter Procedures Comments Procedure Name Priority Date/Time Associated Diag nosis XR CHEST PA AND LATERAL 2 Stat 06/14/2014 VW 8:23 PM NUT DEHYDRATOR OPERATOR documented in this encounter Results * XR CHEST PA AND LATERAL (06/14/2014 8:23 PM NUT DEHYDRATOR OPERATOR) Specimen Impressions Performed At IMPRESSION: INTERFACE SYSTEM NO ACUTE CHEST PROCESS. Electronically Signed By: Cesar brothers MD, Signed On: 06/14/2014 8:29 PM Narrative Performed At RADIOLOGIC EXAM: 2 view chest x-ray. INTERFACE SYSTE M INDICATION: Shortness of breath. Comparison:05/11/13 FINDINGS: Heart size and vascularity no rmal. No effusion or pneumothorax. Lungs are clear. Procedure Note Interface, [facility] In[place] Radiology Results - 06/14/2014 8:33 PM NUT DEHYDRATOR OPERATOR RADIOLOGIC EXAM: 2 view chest x-ray. INDICATION: Shortness of breath. Comparison:05/11/13 FINDINGS: Heart size and vascularity normal. No effusion or pneumothorax. Lungs are clear. IMPRESSION IMPRESSION: NO ACUTE CHEST PROCESS. Electronically Signed By: Cesar Kovacs MD, Signed On: 06/14/2014 8:29 PM Performing Organization Address City/State/Zipcode Ph one Number INTERFACE SYSTEM INTERFACE SYSTEM Refer to clinic/hospital department documented in this encounter Visit Diagnoses Diagnosis Acute bronchitis - Primary documented in this encounter Administered Medications Action Date Dose Rate Site Medication Order MAR Action 06/14/2014 8:35 PM NUT DEHYDRATOR OPERATOR 40 mg predniSONE (DELTASONE) tablet 40 mg Given 40 mg, Oral, ONE TIME ONLY, 1 dose, 06/14/14 at 2045, Routine documented in this encounter
--- OUTSIDE RECORDS SUMMARY | 2019-10-21 18:14 | XMS REPORT | Encounter Summary ---
Author Author [facility] Organization [facility] Address Unknown Phone Unavailable Care Team Providers Care Draughtsman Name Role Phone Robby Rajan APRN Unavailable Phong Stephens MD PCP Unavailable Encounter Details Care Team Description Date Type Department Lydia Fung, EMBROIDERY CUTTER [address] [place] [id number] 03/29/2014 [facility] Se rvices Encounter [address] [address] Social History Date Tobacco Use [...] Date Medication Sig Dispensed Refills 01/15/2013 Insulin Mobile, 1 Package 11 Disposable, (BD INSULIN PEN NEEDLE UF SHORT) 31 X /16 " Misc NdleIndications: Type II or unspecified [...] Take 20 mEq 0 by mouth daily 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 12/29/2014 lurasidone (LATUDA) 120 Take 140 mg [...] Name Priority Date/Time Associated Diag nosis XR KNEE 3 VW LEFT Routine 03/29/2014 Left knee pa in 11:34 AM CDT documented in this encounter Results * XR KNEE 3 [...] compartments suggesting mild osteoarthritis. Procedure Note Interface, [facility] Incoming Radiology Results - 03/29/2014 11:50 [...] encounter Visit Diagnoses Diagnosis Left knee pain Pain in joint, lower leg documented in this encounter
--- OUTSIDE RECORDS SUMMARY | 2019-10-21 18:14 | XMS REPORT | Encounter Summary ---
Author Author [facility] Organization [facility] Address Unknown Phone Unavailable Care Team Providers Care Chief Substation Operator Name Role Phone SatinderRobby Мария KILLIAN Unavailable Phong Stephens MD PCP Unavailable Reason for Visit * Reason Comments Sinus Pain x3 days Cough x2 days Fever Pt stated she had a fever y esturday of 89 Encounter Details Care Team Description Date Type Department José Dodson, GERIATRIC NURSE ASSISTANT [address] [address] [phone] Acute bronchitis (Primary Dx); Cough 04/24/2014 Office Visit [facility] [place] [address] [place] [address] Social History Date Tobacco Use [...] Signs Reading Time Taken Comments Vital Sign 115/70 04/24/2014 12:13 PM CASINO CASHIER Blood Pressure 117 04/24/2014 12:13 PM CASINO CASHIER Pulse 36.4 C (97.6 F) 04/24/2014 12:13 PM CASINO CASHIER Temperature - - Respiratory Rate 97% 04/24/2014 12:13 PM CASINO CASHIER Oxygen Saturation - - Inhaled Oxygen Concentration 118.8 kg (262 lb) 04/24/2014 12:13 PM CASINO CASHIER Weight 158.8 cm (5' 2.5") 04/24/2014 12:13 PM CASINO CASHIER Height 47.16 04/24/2014 12:13 PM CASINO CASHIER Body Mass Index documented in this encounter Progress Notes * José Dodson ARNP - 04/24/2014 12:30 PM CASINO CASHIER SUBJECTIVE: Ayden Odom is a 43 y.o. female who complains of congestion, sore throat, post nasal drip and fever for 3 days. She denies a history of vomiting and has a history of asthma. Patient does smoke cigarettes. Has not had flu vaccination. OBJECTIVE: BP 115/70 | Pulse 117 | Temp(Src) 97.6 F (36.4 C) | Ht 5' 2.5" (1.588 m) | W t 262 lb (118.842 kg) | BMI 47.13 kg/m2 | SpO2 97% Appearance: alert, well appearing, and in no distress. Eye: normal ENT- bilateral TM normal without fluid or infection, neck without nodes, throat normal without erythema or exudate, post nasal drip noted and nasal mucosa conge sted. Chest - rhonchi noted bilateral lower lobes. ASSESSMENT: bronchitis PLAN: See additional orders in EMR. Symptomatic therapy suggested: push fluids, rest a nd antibiotics indicated as prescribed. Call or return to clinic prn if these s ymptoms worsen or fail to improve as anticipated. Z-pack and medrol dose pack o rdered. NO CASHIER documented in this encounter Miscellaneous Notes * Addendum Note - Daisha Andre RT - 04/27/2014 8:30 AM CASINO CASHIER Addended by: DAISHA ANDRE on: 04/27/2014 08:30 AM Modules accepted: Orders NO CASHIER * Addendum Note - José Dodson ARNP - 04/24/2014 2:07 PM CASINO CASHIER Addended by: JOSÉ DODSON on: 04/24/2014 02:07 PM Modules accepted: Orders NO CASHIER documented in this encounter Plan of Treatment Not on filedocumented as of this encounter Procedures Comments Procedure Name Priority Date/Time Associated Diag nosis POC INFLUENZA A AND B Routine 04/27/2014 Cough 8:30 AM CASINO CASHIER documented in this encounter Results * POC INFLUENZA A AND B (04/27/2014 8:30 AM CASINO CASHIER) POC INFLUENZA A neg AG POC INFLUENZA B neg AG Specimen Nasopharyngeal documented in this encounter Visit Diagnoses Diagnosis Acute bronchitis - Primary Cough documented in this encounter
--- OUTSIDE RECORDS SUMMARY | 2019-10-21 18:15 | XMS REPORT | Encounter Summary ---
Author Author [facility] Organization [facility] Address Unknown Phone Unavailable Care Team Providers Care Synthetic Filament Extruder Name Role Phone Robby Rajan Мария KILLIAN Unavailable Phong Stephens MD PCP Unavailable Reason for Visit * Reason Comments Medication Refill Encounter Details Care Team Description Date Type Department Phong Stephens MD NO ADDRESS ON FILE 10/08/2013 Refill [facility] Primar y Care [address] [address] Social History Date Tobacco Use [...]
--- OUTSIDE RECORDS SUMMARY | 2019-10-21 18:15 | XMS REPORT | Encounter Summary ---
Author Author [facility] Organization [facility] Address Unknown Phone Unavailable Care Team Providers Care Calibration Checker Name Role Phone Robby Rajan CONSTANTIN Unavailable Phong Stephens MD PCP Unavailable Encounter Details Care Team Description Date Type Department Phong Stephens MD NO ADDRESS ON FILE [facility], Outpt Lab 12/31/2013 [facility] Outpatient Encounter Laboratory [address] [address] Social History Date Tobacco Use [...] Date Medication Sig Dispensed Refills 01/15/2013 Insulin [place]pava, 1 Package 11 Disposable, (BD INSULIN PEN [...] 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 12/29/2014 lurasidone (LATUDA) 120 Take 140 mg [...] daily Release before (E.C.)Indications: Poor breakfast. appetite 2013 02/17/2014 HYDROcodone-acetaminophen Take 1 Tab by 12 Tab 0 (NORCO) 5-325 mg mouth every 4 tabletIndications: Back hours as pain, Fall needed for Pain, Moderate. 12/29/2014 traZODone (DESYREL) 100 Take 300 mg [...] Procedure Name Priority Date/Time Associated Diag nosis HEMOGLOBIN A1C Routine 12/31/2013 DM w/o complica tion type 11:22 AM CDT II documented in this encounter Results * HEMOGLOBIN A1C (12/31/2013 11:22 AM CDT) HEMOGLOBIN A1C 4.9 0.0 - 6.0 % [facility] [place] EST. AVG 94 mg/dL [facility] GLUCOSE, A1C [facility] [place] Specimen Blood Performing Organization Address City/State[place] [facility] CLIA# [id number] [place], [place] [address] - [address] LABORATORY [facility] CLIA# [id number] [place] [address] - [address] documented in this encounter Visit Diagnoses Diagnosis DM w/o complication type II Type II or unspecified type diabetes me llitus without mention of complication, not stated as uncontrolled documented in this encounter
--- OUTSIDE RECORDS SUMMARY | 2019-10-21 18:15 | XMS REPORT | Encounter Summary ---
Author Author [facility] Organization [facility] Address Unknown Phone Unavailable Care Team Providers Care Client Professional Name Role Phone Robby Rajan APRN Unavailable Phong Stephens MD PCP Unavailable Encounter Details Care Team Description Date Type Department Carlos Middleton PA [address] [place] [address] [facility], Outpt Lab 09/18/2013 [facility] Outpatient Encounter Laboratory [address] [phone] Social History Date Tobacco Use [...] Date Medication Sig Dispensed Refills 01/15/2013 Insulin [place], 1 Package 11 Disposable, (BD INSULIN PEN [...] Before meals, at bedtime, and as needed 08/11/2013 10/23/2013 furosemide (LASIX) 40 mg TAKE 1 TABLET 60 Tab 0 tablet BY MOUTH TWICE DAILY 06/17/2013 08/10/2014 atorvastatin (LIPITOR) 20 TAKE 1 [...] as pain, Fall needed for Pain, Moderate. 2013 12/31/2013 cyclobenzaprine Take 1 Tab by 12 Tab 0 (FLEXERIL) 10 mg mouth 3 times tabletIndications: Back daily as pain, Fall needed for Spasm. 12/29/2014 traZODone (DESYREL) 100 Take 300 mg 0 mg tablet by mouth daily at bedtime 3 tabs. 03/10/2013 12/29/2014 COMBIVENT RESPIMAT 20-100 INHALE 1 PUFF 4 Gram 5 mcg/actuation Inhalation BY MOUTH FOUR Aero TIMES DAILY 03/10/2013 10/08/2013 loratadine (CLARITIN) 10 TAKE 1 TABLET 30 Tab 5 mg Oral tablet BY MOUTH DAILY 02/18/2013 12/31/2013 SUMAtriptan (IMITREX) 100 TAKE 1 TABLET 8 Tab 5 mg Oral tablet BY MOUTH DIRECTED (MAY REPEAT IN 2 HOURS, MAX OF 2 TABLETS IN 24 HOURS) 01/15/2013 08/10/2014 insulin aspart (NOVOLOG 15 units tid 15 mL 5 FLEXPEN) 100 unit/mL subCUT InPn 01/09/2013 08/10/2014 insulin glargine (LANTUS) 10 units hs 15 mL 11 100 unit/mL subCUTIndications: Type II or unspecified type diabetes mellitus without mention of complication, not stated as uncontrolled 12/25/2012 12/31/2013 cyclobenzaprine Take 1 Tab by 9 Tab 0 (FLEXERIL) 10 mg Oral mouth 3 times tablet daily as needed for Spasm. 11/06/2011 12/28/2014 SUMAtriptan (IMITREX) 100 TAKE 1 TABLET 8 Tab 5 mg Oral tablet BY MOUTH DIRECTED (MAY REPEAT IN 2 HOURS, MAX OF 2 TABLETS IN 24 HOURS) documented as of this encounter Plan of Treatment Not on filedocumented as of this encounter Procedures Comments Procedure Name Priority Date/Time Associated Diag nosis PROTIME-INR Routine 09/18/2013 Encounter for l ne-term 1:20 PM CDT (current) use of other medications documented in this encounter Results * PROTIME-INR (09/18/2013 1:20 PM CDT) PROTIME 9.8 9.6 - 11.0 Seconds [facility] [place] INR 1.0 (L) 2.0 - 3.0 [facility] [employer] [facility] Specimen Blood specimen (specimen) Narrative Performed At This result has an attachment that is n ot available. Performing Organization Address City/State/Zipcode Ph one Number [facility] CLIA# [id number] [place] [address] - [address] LABORATORY SERVICES CLIA# [id number] [place] [address] - [address] documented in this encounter Visit Diagnoses Diagnosis Encounter for long-term (current) use o f other medications - Primary documented in this encounter
--- OUTSIDE RECORDS SUMMARY | 2019-10-21 18:15 | XMS REPORT | Encounter Summary ---
Author Author [facility] Organization [facility] Address Unknown Phone Unavailable Care Team Providers Care Commission Associate Name Role Phone Robby Rajan Мария KILLIAN Unavailable Phong Stephens MD PCP Unavailable Reason for Visit * Reason Comments Medication Refill Encounter Details Care Team Description Date Type Department Phong Stephens MD NO ADDRESS ON FILE 08/11/2013 Refill [facility] Primar y Care [address] [address] Social History Date Tobacco Use [...]
--- OUTSIDE RECORDS SUMMARY | 2019-10-21 18:15 | XMS REPORT | Encounter Summary ---
Author Author [facility] Organization [facility] Address Unknown Phone Unavailable Care Team Providers Care Repairer Auto Clocks Name Role Phone Robby Rajan APRN Unavailable Phong Stephens MD PCP Unavailable Encounter Details Care Team Description Date Type Department 11/23/2013 Emergency [facility] Emergency Department [address] [phone] Social History Date Tobacco Use [...] Date Medication Sig Dispensed Refills 01/15/2013 Insulin [place], 1 Package 11 Disposable, (BD INSULIN PEN [...] Before meals, at bedtime, and as needed 10/23/2013 12/29/2014 furosemide (LASIX) 40 mg TAKE [...] Inhalation BY MOUTH FOUR Aero TIMES DAILY 02/18/2013 12/31/2013 SUMAtriptan (IMITREX) 100 TAKE [...]
--- OUTSIDE RECORDS SUMMARY | 2019-10-21 18:15 | XMS REPORT | Encounter Summary ---
Author Author [facility] Organization [facility] Address Unknown Phone Unavailable Care Team Providers Care Winder Helper Name Role Phone Robby Rajan Мария KILLIAN Unavailable Phong Stephens MD PCP Unavailable Reason for Visit * Reason Comments Medication Refill Encounter Details Care Team Description Date Type Department Phong Stephens MD NO ADDRESS ON FILE 11/21/2013 Refill [facility] Primar y Care [address] [address] Social History Date Tobacco Use [...]
--- OUTSIDE RECORDS SUMMARY | 2019-10-21 18:15 | XMS REPORT | Encounter Summary ---
Author Author [facility] Organization [facility] Address Unknown Phone Unavailable Care Team Providers Care Regional Sales Coordinator Name Role Phone King Robby Мария KILLIAN Unavailable Phong Stephens MD PCP Unavailable Encounter Details Care Team Description Date Type Department Phong Stephens MD NO ADDRESS ON FILE 06/23/2013 Abstract [facility] [address] [phone] Social History Date Tobacco Use Types Packs/Day [...]
--- OUTSIDE RECORDS SUMMARY | 2019-10-21 18:15 | XMS REPORT | Encounter Summary ---
Author Author [facility] Organization [facility] Address Unknown Phone Unavailable Care Team Providers Care Farm Machinery Engine Mechanic Name Role Phone King Robby Мария KILLIAN Unavailable Phong Stephens MD PCP Unavailable Encounter Details Care Team Description Date Type Department Phong Stephens MD NO ADDRESS ON FILE 12/18/2013 Abstract [facility] [address] [phone] Social History Date Tobacco Use Types Packs/Day [...]
--- OUTSIDE RECORDS SUMMARY | 2019-10-21 18:15 | XMS REPORT | Encounter Summary ---
Author Author [facility] Organization [facility] Address Unknown Phone Unavailable Care Team Providers Care Ladle Operator Name Role Phone Robby Rajan MANAGER ADMINISTRATIVE SERVICES Unavailable Phong Stephens MD PCP Unavailable Reason for Visit * Reason Comments Results Encounter Details Care Team Description Date Type Department Jessica Christian Results 01/02/2014 Telephone [facility] Primar Care [address] [phone] Social History Date Tobacco Use [...] encounter Miscellaneous Notes * Telephone Encounter - Jessica Christian - 01/02/2014 10:43 AM CDT Patient notified of A1C 4.9. Instructed to stop Metformin and recheck A1C in No v as scheduled. Per Dr Stephens. documented in this encounter Plan of Treatment Not on filedocumented as of this encounter Visit Diagnoses Not on filedocumented in this encounter
--- OUTSIDE RECORDS SUMMARY | 2019-10-21 18:15 | XMS REPORT | Encounter Summary ---
Author Author [facility] Organization [facility] Address Unknown Phone Unavailable Care Team Providers Care Toll Test Worker Name Role Phone Robby Rajan Мария KILLIAN Unavailable Phong Stephens MD PCP Unavailable Reason for Visit * Reason Comments Medication Refill Encounter Details Care Team Description Date Type Department Phong Stephens MD NO ADDRESS ON FILE Poor appetite (Primary Dx); Type II or unspecified type diabetes mellitus without mention of complication, not stated as uncontrolled 06/17/2013 Refill [facility] Primar y Care [address] [phone] Social History Date Tobacco Use Types Packs/Day [...] Diagnoses Diagnosis Poor appetite - Primary Anorexia Type II or unspecified type diabetes me llitus without mention of complication, not stated as uncontrolled documented in this encounter
--- OUTSIDE RECORDS SUMMARY | 2019-10-21 18:15 | XMS REPORT | Encounter Summary ---
Author Author [facility] Organization [facility] Address Unknown Phone Unavailable Care Team Providers Care Ironworker Wire Fence Erector Name Role Phone Robby Rajan APRN Unavailable Phong Stephens MD PCP Unavailable Encounter Details Care Team Description Date Type Department Jessica Christian 01/02/2014 Orders Only [facility] Primar y Care [address] [phone] Social History Date Tobacco Use [...]
--- OUTSIDE RECORDS SUMMARY | 2019-10-21 18:15 | XMS REPORT | Encounter Summary ---
Author Author [facility] Organization [facility] Address Unknown Phone Unavailable Care Team Providers Care School Social Worker Name Role Phone Robby Rajan CONSTANTIN Unavailable Phong Stephens MD PCP Unavailable Reason for Referral * Eval and Treat (Routine) Referred By Contact Referred To Contact Status Reason Specialty Diagnoses / Procedures Phong Stephens MD NO ADDRESS ON FILE Canelo Patton MD [address] [place] [id number] Closed Neurology Diagnoses Carpal tunnel syndrome, right Reason for Visit * Reason Comments Hand Pain x's 3 weeks; pain, numbness & tingling Encounter Details Care Team Description Date Type Department Phong Stephens MD NO ADDRESS ON FILE Bipolar disorder, unspecified (Primary D x); DM w/o complication type II; Drug abuse; Hyperlipidemia; Carpal tunnel syndrome, right; Exposure to hepatitis C 12/31/2013 Office Visit [address] [address] Social History Date Tobacco Use [...] Signs Reading Time Taken Comments Vital Sign 100/60 12/31/2013 10:17 AM CDT Blood Pressure - - Pulse - - Temperature - - Respiratory Rate - - Oxygen Saturation - - Inhaled Oxygen Concentration 124.7 kg (275 lb) 12/31/2013 10:17 AM CDT Weight 158.8 cm (5' 2.5") 12/31/2013 10:17 AM CDT Height 49.5 12/31/2013 10:17 AM CDT Body Mass Index documented in this encounter Progress Notes * Phong Stephens MD - 12/31/2013 10:55 AM CDT Subjective: Ayden Odom is a 43 y.o. female. Patient Active Problem List Diagnosis Code Unspecified Asthma 493.90 Bipolar Disorder, Unspecified 296.80 Lumbago 724.2 Unspecified Hereditary and Idiopathic Peripheral Neuropathy 356.9 Embolism and Thrombosis of Unspecified Site 453.9 Chronic Airway Obstruction, not Elsewhere Classified 496 Pulmonary Embolism 415.19 Chronic pain 338.29 DM w/o complication type II 250.00 Hip Pain 719.45 Sleep Apnea 780.57 Urinary Retention 788.20 Hyperlipidemia 272.4 Narcolepsy and Cataplexy 347.01 Mental Status Change 780.97 Vomiting 787.03 Cough 786.2 Sinusitis 473.9 Non compliance with medical treatment V15.81 Suicidal ideation V62.84 Overdose of benzodiazepine 969.4, E980.3 Needs flu shot V04.81 Methamphetamine abuse 305.70 Infectious otitis externa 380.10 Exposure to TB V01.1 Tendonitis of wrist, right 727.05 Carpal tunnel syndrome 354.0 Cubital tunnel syndrome on right 354.2 Ulnar tunnel syndrome 354.2 Chest pain 786.50 Amphetamine abuse, 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 Before meals , at bedtime, and as needed atorvastatin (LIPITOR) 20 mg tablet TAKE 1 TABLET BY MOUTH DAILY AT BEDTIME 90 Tab 3 COMBIVENT RESPIMAT 20-100 mcg/actuation Inhalation Aero INHALE 1 PUFF BY TH FOUR TIMES DAILY 4 Gram 5 fluticasone (FLONASE) 50 mcg/spray Both Nostril SpSn Administer 2 Sprays in each nostril daily. 16 Gram 3 furosemide (LASIX) 40 mg tablet TAKE 1 TABLET BY MOUTH TWICE DAILY 60 Tab 0 HYDROcodone-acetaminophen (NORCO) 5-325 mg tablet Take 1 Tab by mouth every 4 hours as needed for Pain, Moderate. 12 Tab 0 insulin aspart (NOVOLOG FLEXPEN) 100 unit/mL subCUT InPn 15 units tid 15 mL 5 insulin glargine (LANTUS) 100 unit/mL subCUT 10 units hs 15 mL 11 Insulin [place], Disposable, (BD INSULIN PEN NEEDLE UF SHORT) 31 X 5/16 " [facility] Ndle 1 Package 11 loratadine (CLARITIN) 10 mg tablet Take 1 Tab by mouth daily. 30 Tab 5 LORazepam (ATIVAN) 0.5 mg tablet Take 1 Tab by mouth every 6 hours as needed for Anxiety. 20 Tab 0 meclizine (ANTIVERT) 25 mg tablet TAKE 1 TABLET BY MOUTH THREE TIMES DAILY A S NEEDED FOR DIZZINESS 30 Tab 3 meloxicam (MOBIC) 7.5 mg tablet Take 7.5 mg by mouth daily. omeprazole (PRILOSEC) 20 mg Tablet, Delayed Release (E.C.) Take 1 Tab by andrew th daily before breakfast. 30 Tab 11 OXcarbazepine (TRILEPTAL) 150 mg Oral tablet Take 300 mg by mouth daily at b edtime. Oxygen-Air Delivery Systems Misc Leisa Take 2 L/min by inhalation daily at [facility]. SPIRIVA WITH HANDIHALER 18 mcg capsule INHALE CONTENTS OF 1 CAPSULE EVERY DA Y USING HANDIHALER 30 Cap 11 SUMAtriptan (IMITREX) 100 mg Oral tablet TAKE 1 TABLET BY MOUTH DIRECTED (MAY REPEAT IN 2 HOURS, MAX OF 2 TABLETS IN 24 HOURS) 8 Tab 5 topiramate (TOPAMAX) 100 mg Oral tablet Take 1 Tab by mouth 2 times daily. 60 Tab 5 traMADol (ULTRAM) 50 mg tablet TAKE 2 TABLETS BY MOUTH EVERY 6 HOURS NEED ED FOR PAIN 60 Tab 1 traZODone (DESYREL) 100 mg tablet Take 200 mg by mouth daily at bedtime. Two tabs No current facility-administered medications on file prior to visit. Lab Results Component Value Date/Time HGBA1C 4.9 12/31/2013 11:22 AM HGBA1C 5.4 12/13/2011 10:38 AM HGBA1C 5.3 05/23/2011 10:18 AM MALBUR 96.1 12/13/2011 10:46 AM LDLCALC 144* 12/13/2011 10:38 AM LDLDIRECT 127 05/23/2011 10:18 AM CREAT 1.08* 11/24/2013 3:15 AM HPI: Ms. Odom complains of the following (by systems): Arthritis symptoms: diffuse arthralgias and chel recent increased pain R hand. TH is is carpal tunnel like with painful paresthesias middle 2 fingers. Has had pr evious repair on that side. Depression like symptoms: recent hospital for drug use and withdrawal. She is [facility] and still using some meth. She is trying to get approved for inpatient rehab thru [facility]. Diabetes Type II complaints: unsure what home sugars are but is having more fr equent stools on metformin Review of Systems: ROS Has all of the following chronically: Headache Dizziness Chest pain Shortness of breath Bowel changes Bladder changes Pain in muscle or joints She has had unprotected sex with partner that may have Hep C. Exam/Objective: Normal Exam for Routine Visits: \\Blood pressure 100/60, height 5' 2.5" (1.588 m) , weight 275 lb (124.739 kg). General appearance: chronic ill but more alert and engaged than usual appearing, active, alert, cooperative, social, normally nourished, and in no acute distress Lungs: breath sounds equal, clear to auscultation bilaterally, no retractions, n o stridor, normal respiratory effort Heart: regular rate and rhythm, S1, S2 normal, no murmur, click, rub, gallop, or abnormal sounds. Abdomen: soft, non-tender. Bowel sounds normal. No masses, no organomegaly. Ac tive bowel sounds. Extremities: symmetrical edematous. Assessment and Plan: ASSESSMENT: Encounter Diagnoses Name Primary? Bipolar disorder, unspecified Yes DM w/o complication type II Drug abuse Hyperlipidemia Carpal tunnel syndrome, right Exposure to hepatitis C PLAN: Orders Placed This Encounter HEMOGLOBIN A1C CMP (3 MONTHS X 1) LIPID PANEL (3 MONTHS X 1) HEMOGLOBIN A1C (3 MONTHS X 1) HEPATITIS C ANTIBODY Canelo Patton WHO COCK-UP NONMOLDE PRE OTS metoformin to 1/2 current dose 2nd to diarrhea Ck a1c. May need glyburide Appropriate medications prescribed (see detailed AVS). Appropriate patient instructions provided (see detailed AVS). Follow-up as I have indicated. Medications and options explained to include common side effects. Understanding of medications, course, diagnosis, and expectations were expressed by patient/g uardian. documented in this encounter Plan of Treatment Order Schedule Name Type Priority Associated Diag noses Ordered: 12/31/2013 AMB REFERRAL TO NEUROLOGY Outpatient Routine Carp al tunnel syndrome, Referral right documented as of this encounter Results * HEMOGLOBIN A1C (12/31/2013 11:22 AM CDT) HEMOGLOBIN A1C 4.9 0.0 - 6.0 % [facility] [place] EST. AVG 94 mg/dL [facility] [place] Specimen Blood Performing Organization Address City/State/Zipcode Ph one Number [facility] CLIA# [id number] [place], [place] [address] - [address] LABORATORY SERVICES CLIA# [id number] [place] [address] - [address] documented in this encounter Visit Diagnoses Diagnosis Bipolar disorder, unspecified - Primary DM w/o complication type II Type II or unspecified type diabetes me llitus without mention of complication, not stated as uncontrolled Drug abuse Other, mixed, or unspecified nondepende nt drug abuse, unspecified Hyperlipidemia Other and unspecified hyperlipidemia Carpal tunnel syndrome, right Carpal tunnel syndrome Exposure to hepatitis C Contact with or exposure to other viral diseases documented in this encounter
--- OUTSIDE RECORDS SUMMARY | 2019-10-21 18:15 | XMS REPORT | Encounter Summary ---
Author Author [facility] Organization [facility] Address Unknown Phone Unavailable Care Team Providers Care Timber Watchman Name Role Phone SatinderRobby Мария KILLIAN Unavailable Phong Stephens MD PCP Unavailable Reason for Visit * Reason Comments Back Pain left leg pain Encounter Details Care Team Description Date Type Department Reggie Ramirez MD NO ADDRESS ON FILE Low back pain (Primary Dx); Sciatica, left 02/17/2014 Emergency [facility] Emergency Department [address] [phone] Social History Date Tobacco Use Types Packs/Day [...] Signs Reading Time Taken Comments Vital Sign 125/73 02/17/2014 10:31 PM CDT Blood Pressure 77 02/17/2014 10:31 PM CDT Pulse 36.6 C (97.9 F) 02/17/2014 10:31 PM CDT Temperature 18 02/17/2014 10:31 PM CDT Respiratory Rate 96% 02/17/2014 10:31 PM CDT Oxygen Saturation - - Inhaled Oxygen Concentration 126.6 kg (279 lb) 02/17/2014 10:31 PM CDT Weight 157.5 cm (5' 2") 02/17/2014 10:31 PM CDT Height 51.03 02/17/2014 10:31 PM CDT Body Mass Index documented in this encounter Discharge Instructions * Instructions* Halie Leung, RN - 02/17/2014 Medication as ordered Follow up with Dr Stephens if symptoms persist * Attachments The following attachments cannot be sent through Care Everywhere.* SCIATICA (BANGLADESHI) * SCIATICA : EXERCISES (BANGLADESHI) documented in this encounter Medications at Time of Discharge Start Date End Date Medication Sig Dispensed Refills 01/15/2013 Insulin [place], 1 Package 11 Disposable, (BD INSULIN PEN [...] Before meals, at bedtime, and as needed 02/17/2014 03/29/2014 HYDROcodone-acetaminophen Take 1 Tab by 20 Tab 1 (NORCO) 5-325 mg tablet mouth every 4 hours as needed for Pain, Moderate. 02/17/2014 03/29/2014 HYDROcodone-acetaminophen Take 1 Tab by 6 Tab 0 (NORCO) 5-325 mg tablet mouth every 4 hours as needed for Pain, Moderate. 01/11/2015 dabigatran etexilate Take 150 mg 0 (PRADAXA) 150 mg Capsule by mouth 2 times daily. 12/29/2014 POTASSIUM CHLORIDE ORAL Take 20 mEq 0 by mouth daily marriage performer. 12/29/2014 lurasidone (LATUDA) 120 Take 140 mg [...] ED Notes * Jim Ramirez MD - 02/17/2014 10:39 PM CDT HISTORY OF PRESENT ILLNESS Ayden Odom, a 43 y.o. female presents to the ED with a Chief Complaint o f Back Pain HPI Comments: Here with onset past 24 hours L low back and sciatic pain. No know n recent trauma. Back Pain Pertinent negatives include no chest pain, no fever, no abdominal pain and no we akness. REVIEW OF SYSTEMS Review of Systems Constitutional: Negative for fever, activity change, appetite change, fatigue an d unexpected weight change. HENT: Negative for congestion and neck stiffness. Respiratory: Negative for shortness of breath. Cardiovascular: Negative for chest pain. Gastrointestinal: Negative for abdominal pain. Genitourinary: Negative for menstrual problem. Musculoskeletal: Positive for back pain and arthralgias. Neurological: Negative for weakness. PAST MEDICAL HISTORY [...] disorder, unspecified; Seizure disorder; Acute [place] (03/2010); and CHF (congestive heart failure). She [...] blood tr ansfusion; job and bso (1995); sigmoidoscopy,diagnostic (04/19/2009); cystoscopy ; hemorrhoidectomy (08/03/2010); excisional biopsy; appendectomy; section ; hysterectomy; tubal ligation (1994); cholecystectomy (1999); and colonoscopy,d iagnostic (08/23/2012). FAMILY Patient's family history includes Breast Cancer in her mother and another family member; Cancer in her father, mother, and other family members; Colon Cancer in her father; Diabetes in her father, mother, and another family member; Healthy in her brothers, daughter, sister, and son; Heart Disease in her father, mother, and another family member; Other in her father; Seizures in her brother; and St roke in her mother and another family member. [...] tunnel syndrome on right; Ulnar tunnel syndrome; and Amphetamine abuse, continuous on her problem list. ALLERGIES Aloe vera; [...] MG TABLET GABAPENTIN (NEURONTIN) 800 MG TABLET IBUPROFEN (MOTRIN) 600 MG TABLET INSULIN ASPART (NOVOLOG FLEXPEN) 100 UNIT/ML SUBCUT INPN INSULIN GLARGINE (LANTUS) 100 UNIT/ML SUBCUT INSULIN NEEDLES, DISPOSABLE, (BD INSULIN PEN NEEDLE UF SHORT) 31 X 5/16 " MISC NDLE LORATADINE (CLARITIN) 10 MG TABLET LORAZEPAM (ATIVAN) 0.5 MG TABLET LURASIDONE (LATUDA) 120 MG TABLET TABLET MECLIZINE (ANTIVERT) 25 MG TABLET MELOXICAM (MOBIC) 7.5 MG TABLET OMEPRAZOLE (PRILOSEC) 20 MG TABLET, DELAYED RELEASE (E.C.) OXCARBAZEPINE (TRILEPTAL) 150 MG ORAL TABLET OXYGEN-AIR DELIVERY SYSTEMS MIS LEISA POTASSIUM CHLORIDE ORAL SPIRIVA WITH HANDIHALER 18 MCG CAPSULE SUMATRIPTAN (IMITREX) 100 MG ORAL TABLET TOPIRAMATE (TOPAMAX) 100 MG ORAL TABLET TRAMADOL (ULTRAM) 50 MG TABLET TRAZODONE (DESYREL) 100 MG TABLET VENLAFAXINE (EFFEXOR XR) 150 MG EXTENDED RELEASE 24 HOUR CAPSULE Medications Modified during this Encounter Medications Discontinued during this Encounter HYDROCODONE-ACETAMINOPHEN (NORCO) 5-325 MG TABLET PHYSICAL EXAM INITIAL VS BP: 125/73 mmHg (02/17/142230), Heart Rate (Monitored): (not recorded), Resp: 1 8 (02/17/142230), Temp: 97.9 F (36.6 C) (02/17/142230), Temp src: Tympanic (02/17/142230), SpO2: 96 % (02/17/142230), Height: 5' 2" (157.5 cm) (02/17/142230), Weight: 126.554 kg (02/17/142230), BMI (Calculated): 51.14 (02/17/14) No LMP recorded. Patient has had a hysterectomy. Physical Exam Nursing note and vitals reviewed. Constitutional: She is oriented to person, place, and time. She appears well-dev eloped and well-nourished. obese HENT: Head: Normocephalic and atraumatic. Right Ear: [...] are normal. Musculoskeletal: Normal range of motion. She exhibits tenderness (L lower back a nd sciatic area tenderness). Neurological: She is alert and oriented to person, place, and time. She has norm al reflexes. Skin: Skin is warm and dry. DIAGNOSTICS LAB: RADIOLOGY: EKG: PROCEDURES Procedures MEDICAL DECISION MAKING AND PLAN OF CARE REEVALUATION CASE DISCUSSED . New Prescriptions for this Encounter HYDROCODONE-ACETAMINOPHEN (NORCO) 5-325 MG TABLET Take 1 Tab by mouth every 4 hours as needed for Pain, Moderate. HYDROCODONE-ACETAMINOPHEN (NORCO) 5-325 MG TABLET Take 1 Tab by mouth every 4 hours as needed for Pain, Moderate. LAST VITALS BP: 125/73 mmHg (02/17/142230), Heart Rate (Monitored): (not recorded), Resp: 1 8 (02/17/142230), Temp: 97.9 F (36.6 C) (02/17/142230), Temp src: Tympanic (02/17/142230), SpO2: 96 % (02/17/142230) CLINICAL IMPRESSION Final diagnoses: Low back pain Sciatica, left CODING MDM Coding Reviewed: previous chart, nursing note and vitals DISPOSITION, EDUCATION AND MEDICATION RECONCILIATION Medications reconciled. See after visit summary for patient education on discha rged patients. Analgesia and steroid, heat, rest. * Halie Leung RN - 02/17/2014 10:33 PM CDT Pt with low back and left hip/leg pain starting 2 days ago, worse tonight. Pt w ith no pain medication to take and has taken nothing otc for pain. documented in this encounter Plan of Treatment Not on filedocumented as of this encounter Visit Diagnoses Diagnosis Low back pain - Primary Lumbago Sciatica, left documented in this encounter Administered Medications Action Date Dose Rate Site Medication Order MAR Action 02/17/2014 10:45 PM CDT 4 mg Deltoid, Right dexamethasone (DECADRON) injection 4 mg Given 4 mg, IM, ONE TIME ONLY, 1 dose, Tu02/17/14 at 2245, Routine 02/17/2014 10:44 PM CDT 80 mg Deltoid, Right methylPREDNISolone Acetate (DEPO-MEDROL) Given injection 80 mg 80 mg, IM, ONE TIME ONLY, 1 dose, Sun02/17/14 at 2245, Routine documented in this encounter
--- OUTSIDE RECORDS SUMMARY | 2019-10-21 18:15 | XMS REPORT | Encounter Summary ---
Author Author [facility] Organization [facility] Address Unknown Phone Unavailable Care Team Providers Care Heavy Equipment Service Technician Name Role Phone Robby Rajan APRN Unavailable Phong Stephens MD PCP Unavailable Reason for Visit * Reason Comments Urinary Catheter Problem * Auth/Cert Referred By Contact Referred To Contact Status Reason Specialty Diagnoses / Procedures [facility] Emergency [address] [place] [address] Closed Emergency Medicine Encounter Details Care Team Description Date Type Department Saturnino Canales MD NO ADDRESS ON FILE [place] catheter problem, initial encounte r (Primary Dx) 09/21/2013 Emergency [facility] Emergency Department [address] [phone] Social History Date Tobacco Use [...] Signs Reading Time Taken Comments Vital Sign 114/49 09/21/2013 12:09 AM CDT Blood Pressure 84 09/21/2013 12:09 AM CDT Pulse 36.5 C (97.7 F) 09/21/2013 12:09 AM CDT Temperature 16 09/21/2013 12:09 AM CDT Respiratory Rate 97% 09/21/2013 12:09 AM CDT Oxygen Saturation - - Inhaled Oxygen Concentration 127.9 kg (282 lb) 09/21/2013 12:09 AM CDT Weight 177.8 cm (5' 10") 09/21/2013 12:09 AM CDT Height 40.46 09/21/2013 12:09 AM CDT Body Mass Index documented in this encounter Medications at Time of Discharge Start Date End Date Medication Sig Dispensed Refills 01/15/2013 Insulin [place], 1 Package 11 Disposable, (BD INSULIN PEN [...] as of this encounter ED Notes * Halie Leung RN - 09/21/2013 12:27 AM CDT Pt given new leg bag to change at home. * Halie Leung RN - 09/21/2013 12:21 AM CDT Pt with supra pubic catheter leaking, supposed to have 30 ml saline, noted to on ly have 12 ml. Site cleansed with betadine, saline added to obtain 30 ml in [address]. Dr Canales oked to perform as outpatient. Pt instructed to return if cont inued leaking problems. documented in this encounter Plan of Treatment Not on filedocumented as of this encounter Visit Diagnoses Diagnosis [place] catheter problem, initial encount er - Primary documented in this encounter Administered Medications Action Date Dose Rate Site Medication Order MAR Action 09/21/2013 12:17 AM CDT 10 mL SODIUM CHLORIDE 0.9 % INJECTION SYRINGE Given 1 dose, Starting 09/21/13 at 0012, Until 09/21/13 at 0017Madhu OMNICELL: cabinet override, 09/21/2013 12:17 AM CDT 10 mL SODIUM CHLORIDE 0.9 % INJECTION SYRINGE Given 1 dose, Starting 09/21/13 at 0015, Until 09/21/13 at 0017, Madhu KRISHNA: cabinet override, documented in this encounter
--- OUTSIDE RECORDS SUMMARY | 2019-10-21 18:15 | XMS REPORT | Encounter Summary ---
Author Author [facility] Organization [facility] Address Unknown Phone Unavailable Care Team Providers Care Instrument Operator Name Role Phone Robby Rajan CONSTANTIN Unavailable Phong Stephens MD PCP Unavailable Reason for Visit * Reason Comments Medication Refill Encounter Details Care Team Description Date Type Department Phong Stephens MD NO ADDRESS ON FILE 10/23/[address] [facility] Prim[facility] y Care [address] [phone] Social History Date Tobacco Use [...] Telephone Encounter - Phong Stephens MD - 10/23/2013 4:53 PM CDT Needs seen before further refills documented in this encounter Plan of Treatment Not on filedocumented as of this encounter Visit Diagnoses Not on filedocumented in this encounter
--- OUTSIDE RECORDS SUMMARY | 2019-10-21 18:15 | XMS REPORT | Encounter Summary ---
Author Author [facility] Organization [facility] Address Unknown Phone Unavailable Care Team Providers Care Ivory Carver Name Role Phone Franco Rajanory Мария KILLIAN Unavailable Phong Stephens MD PCP Unavailable Reason for Visit * Reason Comments Labs Only Encounter Details Care Team Description Date Type Department EnyaEvelio MD [address] [place] [address] Amphetamine abuse, continuous (Primary D x); Suicidal ideation 11/24/2013 Emergency [facility] Emergency Department [address] [address] Social History Date Tobacco Use Types Packs/Day Years Used Current Every Day Smoker Cigarettes 2 27 Smokeless Tobacco: Never Used Tobacco Cessation: [...] Signs Reading Time Taken Comments Vital Sign 151/87 11/24/2013 4:35 AM CDT Blood Pressure - - Pulse 36.8 C (98.2 F) 11/24/2013 4:35 AM CDT Temperature 18 11/24/2013 4:35 AM CDT Respiratory Rate 100% 11/24/2013 4:35 AM CDT Oxygen Saturation - - Inhaled Oxygen Concentration 122.5 kg (270 lb) 11/24/2013 3:03 AM CDT Weight 157.5 cm (5' 2") 11/24/2013 3:03 AM CDT Height 49.38 11/24/2013 3:03 AM CDT Body Mass Index documented in this encounter Discharge Instructions * Instructions* Evelio Lewis MD - 11/24/2013 Do not use drugs or alcohol. Follow up with psychiatry A culture was sent on your urine from [facility] and if you need antibiotics the cu lture will show in about 48 hours. Follow up or check with Dr. Stephens and christine griffin for those results. * Attachments The following attachments cannot be sent through Care Everywhere.* ALCOHOL AND DRUG PROBLEMS (POLISH) * SUPRAPUBIC CATHETER CARE (POLISH) documented in this encounter Medications at Time of Discharge Start Date End Date Medication Sig Dispensed Refills 01/15/2013 Insulin [place], 1 Package 11 Disposable, (BD INSULIN PEN [...] ED Notes * Evelio Lewis MD - 11/24/2013 4:24 AM CDT HISTORY OF PRESENT ILLNESS Ayden Odom, a 43 y.o. female presents to the ED with a Chief Complaint o f Labs Only HPI Comments: She presents for medical clearance to be transferred to OSH as inv oluntary admit. Over this weekend she has tried to kill herself by taking Lyrica and Trazodone o n Sunday night. Sunday night she tried to cut her wrist and has superficial ab rasions to her left wrist. She is actively continuing to use Methamphetamines. S he still wants to hurt herself. The history is provided by medical records, the police and the patient (Mental H ealth Screener from [facility]). CHILANGO JOSEPH ARRIVED BY: police. CHILANGO JOSEPH ARRIVED FROM : police. REVIEW OF SYSTEMS Review of Systems Constitutional: Negative for fever and chills. HENT: Negative for neck pain. Eyes: Negative for visual disturbance. Respiratory: Negative for shortness of breath. Cardiovascular: Negative for chest pain. Gastrointestinal: Negative for nausea and vomiting. Genitourinary: Negative for dysuria. Indwelling suprapubic catheter Musculoskeletal: Negative for joint swelling. Skin: Positive for wound (superficial abrasions to left wrist). Allergic/Immunologic: Negative for immunocompromised state. Neurological: Negative for weakness, numbness and headaches. Psychiatric/Behavioral: Positive for suicidal ideas and behavioral problems. PAST MEDICAL HISTORY REVIEWED MEDICAL Patient has [...] mercedes(784.0); Bipolar disorder, unspecified; Seizure disorder; Acute VT (03/2010); and CHF (congestive heart failure). 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; Embolism and Thrombosis of Unspecified Site; Chronic Airway Obstruction, not Elsewhere Classified; Pulmonar y Embolism; Chronic pain; DM w/o complication type II; Hip Pain; Sleep Apnea; Ur inary Retention; Hyperlipidemia; Narcolepsy and Cataplexy; Mental Status Change; Vomiting; Cough; Sinusitis; Non compliance with medical treatment; Suicidal susan ation; Overdose of benzodiazepine; Needs flu shot; Methamphetamine abuse; Infect ious otitis externa; Exposure to TB; Tendonitis of wrist, right; Carpal tunnel s yndrome; Cubital tunnel syndrome on right; Ulnar tunnel syndrome; Chest pain; an d Amphetamine abuse, continuous on her problem list. ALLERGIES Aloe vera; Doxycycline; Tape; Xanax; and Zofran HOME MEDICATIONS Patient's Home Medications Current Home Medications ACCU-CHEK ACTIVE CARE MISC KIT ACETAMINOPHEN (TYLENOL EXTRA STRENGTH) 500 MG ORAL TABLET ATORVASTATIN (LIPITOR) 20 MG TABLET COMBIVENT RESPIMAT 20-100 MCG/ACTUATION INHALATION AERO CYCLOBENZAPRINE (FLEXERIL) 10 MG ORAL TABLET CYCLOBENZAPRINE (FLEXERIL) 10 MG TABLET FLUTICASONE (FLONASE) 50 MCG/SPRAY BOTH NOSTRIL SPSN FUROSEMIDE (LASIX) 40 MG TABLET GABAPENTIN (NEURONTIN) 600 MG TABLET HYDROCODONE-ACETAMINOPHEN (NORCO) 5-325 MG TABLET INSULIN ASPART (NOVOLOG FLEXPEN) 100 UNIT/ML SUBCUT INPN INSULIN GLARGINE (LANTUS) 100 UNIT/ML SUBCUT INSULIN NEEDLES, DISPOSABLE, (BD INSULIN PEN NEEDLE UF SHORT) 31 X 5/16 " MISC NDLE IPRATROPIUM-ALBUTEROL (DUONEB) 0.5 MG-3 MG(2.5 MG BASE)/3 ML INHALATION NEBU LEVALBUTEROL HFA (XOPENEX HFA) 45 MCG/ACTUATION INHALATION HFAA LORATADINE (CLARITIN) 10 MG TABLET LORAZEPAM (ATIVAN) 0.5 MG TABLET MECLIZINE (ANTIVERT) 25 MG TABLET MELOXICAM (MOBIC) 7.5 MG TABLET OMEPRAZOLE (PRILOSEC) 20 MG TABLET, DELAYED RELEASE (E.C.) OXCARBAZEPINE (TRILEPTAL) 150 MG ORAL TABLET OXYGEN-AIR DELIVERY SYSTEMS MISC LEISA POTASSIUM CHLORIDE SR (K-DUR) 10 MEQ TABLET SPIRIVA WITH HANDIHALER 18 MCG CAPSULE SUMATRIPTAN (IMITREX) 100 MG ORAL TABLET SUMATRIPTAN (IMITREX) 100 MG ORAL TABLET TOPIRAMATE (TOPAMAX) 100 MG ORAL TABLET TRAMADOL (ULTRAM) 50 MG TABLET TRAZODONE (DESYREL) 100 MG TABLET WARFARIN (COUMADIN) 5 MG TABLET Medications Modified during this Encounter Medications Discontinued during this Encounter PHYSICAL EXAM INITIAL VS BP: 143/92 mmHg (11/24/13302), Heart Rate (Monitored): 74 bpm (11/24/13302), Resp: 18 (11/24/13302), Temp: 97.3 F (36.3 C) (11/24/13302), Temp src: Oral (11/24/13302), SpO2: 97 % (11/24/13302), Height: 5' 2" (157.5 cm) (11/03), Weight: 122.471 kg (11/24/13302), BMI (Calculated): 49.49 (302) No LMP recorded. Patient has had a hysterectomy. Physical Exam Nursing note and vitals reviewed. Constitutional: She is oriented to person, place, and time. She appears well-dev eloped and well-nourished. She is active and cooperative. Non-toxic appearance. No distress. HENT: Head: Normocephalic and atraumatic. Mouth/Throat: Oropharynx is clear and moist. Eyes: EOM are normal. Pupils are equal, round, [...] time. Skin: Skin is warm and dry. Abrasion (superficial abrasions to left wrist) noted . She is not diaphoretic. Psychiatric: She expresses suicidal ideation. She expresses no homicidal ideatio n. She expresses suicidal plans. She expresses no homicidal plans. DIAGNOSTICS LAB: Results for orders placed during the hospital encounter of 11/24/13 (from the [facility] 24 hour(s)) URINALYSIS WITH REFLEX CULTURE Result Value Range COLOR UA Yellow Pale to dark yellow CLARITY UA Turbid (*) Clear SPECIFIC GRAVITY UA 1.018 1.003-1.035 PH UA 7.5 5.0-8.0 LEUKOCYTE ESTERASE UA 2+ (*) Negative NITRITE UA Negative Negative PROTEIN UA 1+ (*) Negative GLUCOSE UA Negative Negative KETONES UA Negative Negative UROBILINOGEN UA 2.0 (*) <2.0 mg/dL BILIRUBIN UA Negative Negative BLOOD UA Negative Negative WBC UA 3-5 (*) 0-2 /hpf RBC UA 6-10 (*) 0-2 /hpf BACTERIA UA 4+ (*) Negative /hpf AMORPHOUS CRYSTAL Present (*) Absent CALCIUM OXALATE, URINE Present (*) Absent COMMENT, URINE Mucous: Few DRUG SCREEN, URINE Result Value Range AMPHETAMINE QUAL, URINE Presumptive Positive (*) Negative BARBITURATE QUAL, URINE Negative Negative BENZODIAZEPINE QUAL, URINE Negative Negative COCAINE QUAL URINE Negative Negative OPIATE QUAL, URINE Negative Negative CANNABINOIDS QUAL, URINE Negative Negative PCP QUAL, URINE Negative Negative CREATININE, URINE 174.2 29.0-226.0 mg/dL CBC WITH DIFFERENTIAL Result Value Range WBC 9.5 3.0-10.4 K/uL RBC 4.61 3.77-4.97 M/uL HEMOGLOBIN 14.4 11.9-15.0 g/dL HEMATOCRIT 45.1 (*) 34.4-43.6 % MCV 97.8 79.0-100.0 fL MCH 31.3 28.0-34.0 pg MCHC 32.0 31.0-35.0 g/dL RDW 13.0 11.5-15.1 % PLATELETS 196 148-408 K/uL MPV 9.3 7.4-10.6 fL NEUTROPHILS 55 43-73 % LYMPHOCYTES 35 19-47 % MONOCYTES 4 3-9 % EOSINOPHILS 5 0-6 % BASOPHILS 1 0-1 % NEUTROPHIL ABSOLUTE 5.26 1.30-7.60 K/uL LYMPHOCYTE ABSOLUTE 3.34 0.60-4.90 K/uL MONOCYTE ABSOLUTE 0.41 0.10-0.90 K/uL EOSINOPHIL ABSOLUTE 0.45 (*) 0.00-0.40 K/uL BASOPHILS ABSOLUTE 0.06 0.00-0.10 K/uL COMPREHENSIVE METABOLIC PANEL Result Value Range SODIUM 138 134-145 mmol/L POTASSIUM 3.9 3.5-5.1 mmol/L CHLORIDE 105 98-107 mmol/L CO2 23 22-31 mmol/L CALCIUM 8.9 8.5-10.1 mg/dL BUN 19 7-20 mg/dL CREATININE 1.08 (*) 0.51-0.95 mg/dL GLUCOSE 93 70-100 mg/dL TOTAL PROTEIN 7.9 6.4-8.2 g/dL ALBUMIN 4.0 3.4-5.0 g/dL BILIRUBIN TOTAL 0.6 <=1.1 mg/dL ALKALINE PHOSPHATASE 75 40-136 U/L AST 19 10-40 U/L ALT 41 25-70 U/L GFR 56 (*) >=60 mL/min/1.73 sq meter GFR, >60 >=60 mL/min/1.73 sq meter ETHANOL LEVEL Result Value Range ETHANOL <3.00 ETHANOL % 0.00 SALICYLATE LEVEL Result Value Range SALICYLATE LEVEL 6.1 2.8-20.0 mg/dL ACETAMINOPHEN LEVEL Result Value Range ACETAMINOPHEN LEVEL 0 (*) 10-30 ug/mL PROTIME-INR Result Value Range PROTIME 14.2 (*) 9.6-11.0 Seconds INR 1.4 (*) 2.0-3.0 RADIOLOGY: EKG: PROCEDURES Procedures MEDICAL DECISION MAKING AND PLAN OF CARE Check labs to clear her to go to OSH REEVALUATION Labs appear stable. She does have indwelling suprapubic catheter and UA reflec ts that but looks stable for her. D/w Dr. Galloway at OSH and will transfer pt by police as involuntary admit CASE DISCUSSED . New Prescriptions for this Encounter LAST VITALS BP: 143/92 mmHg (11/24/13302), Heart Rate (Monitored): 74 bpm (11/24/13302), Resp: 18 (11/24/13302), Temp: 97.3 F (36.3 C) (11/24/13302), Temp src: Oral (11/24/13302), SpO2: 97 % (11/24/13302) CLINICAL IMPRESSION Final diagnoses: Amphetamine abuse, continuous Suicidal ideation CODING MDM Coding Reviewed: vitals, nursing note and previous chart Reviewed previous: labs Interpretation: labs and SP02 Consults: psychiatry DISPOSITION, EDUCATION AND MEDICATION RECONCILIATION Medications reconciled. See after visit summary for patient education on discha rged patients. * Mateusz Rhodes RN - 11/24/2013 3:36 AM CDT Patient has superficial lacerations to left wrist after having an attempt to kil l herself earlier this evening. Patient was screened by [facility] screener already this evening. * Mateusz Rhodes RN - 11/24/2013 3:06 AM CDT [facility] because [facility] refused to take her before being medically screened. documented in this encounter Plan of Treatment Not on filedocumented as of this encounter Procedures Comments Procedure Name Priority Date/Time Associated Diag nosis CBC WITH DIFFERENTIAL Stat 11/24/2013 3:15 AM CDT PROTIME-INR Stat 11/24/2013 3:15 AM CDT ETHANOL LEVEL Stat 11/24/2013 3:15 AM CDT ACETAMINOPHEN LEVEL Stat 11/24/2013 3:15 AM CDT SALICYLATE LEVEL Stat 11/24/2013 3:15 AM CDT COMPREHENSIVE METABOLIC Stat 11/24/2013 PANEL 3:15 AM CDT URINALYSIS WITH REFLEX Stat 11/24/2013 CULTURE 3:00 AM CDT DRUG SCREEN, URINE Stat 11/24/2013 3:00 AM CDT URINE CULTURE Stat 11/24/2013 3:00 AM CDT documented in this encounter Results * PROTIME-INR (11/24/2013 3:15 AM CDT) PROTIME 14.2 (H) 9.6 - 11.0 Seconds [facility] LABORATORY SERVICES - [place]YSA REBA INR 1.4 (L) 2.0 - 3.0 [facility] LABORATORY SERVICES - [place] Specimen Blood Performing Organization Address [facility] Ph one [facility] LABORATORY SERVICES CLIA# [id number] [place], [place] [address] [address] LABORATORY SERVICES CLIA# [id number] [place] [address] * ACETAMINOPHEN LEVEL (11/24/2013 3:15 AM CDT) ACETAMINOPHEN 0 (L) 10 - 30 ug/mL [facility] LABORATORY SERVICES - [place] Specimen Blood Performing Organization Address [facility] Ph one Number [facility] LABORATORY SERVICES CLIA# [id number] [place], [place] [address] [address] LABORATORY SERVICES CLIA# [id number] [place] [address] * SALICYLATE LEVEL (11/24/2013 3:15 AM CDT) SALICYLATE 6.1 2.8 - 20.0 mg/dL [facility] LABORATORY SERVICES - [place] Specimen Blood Performing Organization Address [facility] Ph one Number [facility] LABORATORY SERVICES CLIA# [id number] [place], [place] [address] [address] LABORATORY SERVICES CLIA# [id number] [place] [address] * ETHANOL LEVEL (11/24/2013 3:15 AM CDT) ETHANOL <3.00 mg/dL [facility] LABORATORY SERVICES - ALYSA BRITTON ETHANOL % 0.00 %w/v [facility] LABORATORY SERVICES - ALYSA REBA Specimen Blood Narrative Performed At Chain of Custody Handling was not perfo rmed on this specimen. This test will not [facility] LABORATORY meet medical-legal requirements. SERVICES - ALYSA REBA Performing Organization Address [facility] one Number [facility] LABORATORY SERVICES CLIA# [id number] [place], [place] [address] [address] LABORATORY SERVICES CLIA# [id number] [place] [address] * COMPREHENSIVE METABOLIC PANEL (11/24/2013 3:15 AM CDT) SODIUM 138 134 - 145 mmol/L [facility] SERVICES - [place]YSA BRITTON POTASSIUM 3.9 3.5 - 5.1 mmol/L [facility] LABORATORY SERVICES - [place]SA BRITTON CHLORIDE 105 98 - 107 mmol/L [facility] LAB[facility]ATORY SERVICES - ALYSA BRITTON CO2 23 22 - 31 mmol/L [facility] LABORATORY SERVICES - ALYSA BRITTON CALCIUM 8.9 8.5 - 10.1 mg/dL [facility] LABORATORY SERVICES - [place]YSA BRITTON BUN 19 7 - 20 mg/dL [facility] LAB[facility] - [place]SA BRITTON CREATININE 1.08 (H) 0.51 - 0.95 mg/dL [facility] LABORATORY SERVICES - [place]YSA BRITTON GLUCOSE 93 70 - 100 mg/dL [facility] LABORATORY SERVICES - [place]YSA BRITTON TOTAL PROTEIN 7.9 6.4 - 8.2 g/dL [facility] LABORATORY SERVICES - ALYSA BRITTON ALBUMIN 4.0 3.4 - 5.0 g/dL [facility] LABORATORY SERVICES - ALYSA BRITTON BILIRUBIN TOTAL 0.6 <=1.1 mg/dL [facility] LABORATORY SERVICES - ALYSA BRITTON ALKALINE 75 40 - 136 U/L [facility] PHOSPHATASE LABORATORY SERVICES - ALYSA BRITTON AST 19 10 - 40 U/L [facility] LABORATORY SERVICES - [place]YSA BRITTON ALT 41 25 - 70 U/L [facility] LABORATORY SERVICES - [place]SA BRITTON GFR 56 (L) >=60 mL/min/1.73 sq [facility] Comment: meter LABORATORY eGFR has not been validated [facility] for use in the elderly (> 70 [...] GFR result. GFR, >60 >=60 mL/min/1.73 sq [facility] [place] meter LABORATORY SERVICES - ALYSA BRITTON Specimen Blood Performing Organization Address City/State/[facility] Ph one Number [facility] LABORATORY SERVICES CLIA# [id number] [place], [place] [address] - [place]YSA [address] LABORATORY SERVICES CLIA# [id number] [place] [address] - [address] * CBC WITH DIFFERENTIAL (11/24/2013 3:15 AM CDT) WBC 9.5 3.0 - 10.4 K/uL [facility] LABORATORY SERVICES - [place] BRITTON RBC 4.61 3.77 - 4.97 M/uL [facility] LABORATORY SERVICES - [place]SA BRITTON HEMOGLOBIN 14.4 11.9 - 15.0 g/dL [facility] LABORATORY SERVICES - ALYSA BRITTON HEMATOCRIT 45.1 (H) 34.4 - 43.6 % [facility] LABORATORY SERVICES - ALYSA BRITTON MCV 97.8 79.0 - 100.0 fL [facility] LABORATORY SERVICES - [place]SA BRITTON MCH 31.3 28.0 - 34.0 pg [facility] LABORATORY SERVICES - ALYSA BRITTON MCHC 32.0 31.0 - 35.0 g/dL [facility] LABORATORY SERVICES - [place]SA BRITTON RDW 13.0 11.5 - 15.1 % [facility] LABORATORY SERVICES - ALYSA BRITTON PLATELETS 196 148 - 408 K/uL [facility] LABORATORY SERVICES - ALYSA BRITTON MPV 9.3 7.4 - 10.6 fL [facility] LABORATORY SERVICES - [place]SA BRITTON NEUTROPHILS 55 43 - 73 % [facility] LABORATORY SERVICES - [place]YSA BRITTON LYMPHOCYTES 35 19 - 47 % [facility] - [place] MONOCYTES 4 3 - 9 % [facility] LABORATORY SERVICES - [facility] REBA EOSINOPHILS 5 0 - 6 % [facility] LABORATORY SERVICES - [facility] REBA BASOPHILS 1 0 - 1 % [facility] LABORATORY SERVICES - [place] BRITTON NEUTROPHIL 5.26 1.30 - 7.60 K/uL [facility] SERVICES - ALYSA BRITTON LYMPHOCYTE 3.34 0.60 - 4.90 K/uL [facility] - [place]SA BRITTON MONOCYTE 0.41 0.10 - 0.90 K/uL [facility] LABORATORY SERVICES - AL[place]SA BRITTON EOSINOPHIL 0.45 (H) 0.00 - 0.40 K/uL [facility] - [facility] REBA BASOPHILS 0.06 0.00 - 0.10 K/uL [facility] LABORATORY SERVICES - [place] Specimen Blood Performing Organization Address City/State/Zipcode Ph one Number [facility] LABORATORY SERVICES CLIA# [id number] [place], [place] [address] [address] LABORATORY SERVICES CLIA# [id number] [place] [address] - [address] * URINE CULTURE (11/24/2013 3:00 AM CDT) CULTURE >100,000 cfu/mL Escherichia [facility] coli (A) LAB[facility]ATORY SERVICES - [place] CULTURE >100,000 cfu/mL Providencia [facility] alcalifaciens (A) LABORATORY SERVICES - [place] CULTURE 50-100,000 cfu/mL Alcaligenes EUGENE faecalis subsp faecalis (A) LABORATORY SERVICES - [place] CULTURE >100,000 cfu/mL Enterococcus EUGENE species (A) LABORATORY SERVICES - [place] Specimen Urine - Urine specimen obtained by clean catch procedure (specimen) Narrative Performed At Also present, greater than 100,000 Diphtheroids & Lac tobacilli isolated on [facility] LAB[facility] culture, no further studies indicated. Possible conta minates. SERVICES - [place] Antibiotic Method Susceptibility Organism AMPICILLIN DOMENICA MCG/ML 4: Susceptible Escherichia coli CEFAZOLIN DOMENICA MCG/ML <=4: Susceptible Escherichia coli CEFTRIAXONE DOMENICA MCG/ML <=1: Susceptible Escherichia coli CIPROFLOXACIN DOMENICA MCG/ML <=0.25: Susceptible Escherichia coli ERTAPENEM DOMENICA MCG/ML <=0.5: Susceptible Escherichia coli GENTAMICIN DOMENICA MCG/ML <=1: Susceptible Escherichia coli IMIPENEM DOMENICA MCG/ML <=0.25: Susceptible Escherichia coli LEVOFLOXACIN DOMENICA MCG/ML <=0.12: Susceptible Escherichia coli NITROFURANTOIN DOMENICA MCG/ML 32: Susceptible Escherichia coli TRIMETHOPRIM/ SULFAMETHOXAZOLE DOMENICA MCG/ML <=20: Susceptible Escherichia coli AMPICILLIN/ SULBACTAM DOMENICA MCG/ML 8: Resistant Providencia alcalifaciens AMPICILLIN DOMENICA MCG/ML 4: Resistant Providencia alcalifaciens CEFAZOLIN DOMENICA MCG/ML >=64: Resistant Providencia alcalifaciens CEFTRIAXONE DOMENICA MCG/ML <=1: Susceptible Providencia alcalifaciens CIPROFLOXACIN DOMENICA MCG/ML <=0.25: Susceptible Providencia alcalifaciens ERTAPENEM DOMENICA MCG/ML <=0.5: Susceptible Providencia alcalifaciens GENTAMICIN DOMENICA MCG/ML <=1: Resistant Providencia alcalifaciens LEVOFLOXACIN DOMENICA MCG/ML 0.25: Susceptible Providencia alcalifaciens NITROFURANTOIN DOMENICA MCG/ML 256: Resistant Providencia alcalifaciens TOBRAMYCIN DOMENICA MCG/ML <=1: Resistant Providencia alcalifaciens TRIMETHOPRIM/ SULFAMETHOXAZOLE DOMENICA MCG/ML <=20: Susceptible Providencia alcalifaciens CEFTAZIDIME DOMENICA MCG/ML <=1: Susceptible Providencia alcalifaciens CEFOXITIN DOMENICA MCG/ML <=4: Susceptible Providencia alcalifaciens CEFEPIME DOMENICA MCG/ML 8: Susceptible Alcaligenes faecalis subsp faecalis CEFOTAXIME DOMENICA MCG/ML 1.5: Susceptible Alcaligenes faecalis subsp faecalis CEFTRIAXONE DOMENICA MCG/ML <=1: Susceptible Alcaligenes faecalis subsp faecalis CIPROFLOXACIN DOMENICA MCG/ML 1: Susceptible Alcaligenes faecalis subsp faecalis GENTAMICIN DOMENICA MCG/ML <=1: Susceptible Alcaligenes faecalis subsp faecalis IMIPENEM DOMENICA MCG/ML 0.5: Susceptible Alcaligenes faecalis subsp faecalis LEVOFLOXACIN DOMENICA MCG/ML 1: Susceptible Alcaligenes faecalis subsp faecalis NITROFURANTOIN DOMENICA MCG/ML 128: Resistant Alcaligenes faecalis subsp faecalis PIPERACILLIN/ TAZOBACTAM DOMENICA MCG/ML <=4: Susceptible Alcaligenes faecalis subsp faecalis TOBRAMYCIN DOMENICA MCG/ML <=1: Susceptible Alcaligenes faecalis subsp faecalis TRIMETHOPRIM/ SULFAMETHOXAZOLE DOMENICA MCG/ML 160: Resistant Alcaligenes faecalis subsp faecalis CEFTAZIDIME DOMENICA MCG/ML 4: Susceptible Alcaligenes faecalis subsp faecalis VANCOMYCIN DOMENICA MCG/ML 1: Susceptible Enterococcus species AMPICILLIN DOMENICA MCG/ML <=2: Susceptible Enterococcus species LEVOFLOXACIN DOMENICA MCG/ML >=8: Resistant Enterococcus species LINEZOLID DOMENICA MCG/ML 2: Susceptible Enterococcus species NITROFURANTOIN DOMENICA MCG/ML <=16: Susceptible Enterococcus species PENICILLIN DOMENICA MCG/ML 8: Susceptible Enterococcus species CIPROFLOXACIN DOMENICA MCG/ML >=8: Resistant Enterococcus species Performing Organization Address [facility] LABORATORY SERVICES CLIA# [id number] [place] [address] [address] LABORATORY SERVICES CLIA# [id number] [place], [place] [address] [place] [address] * DRUG SCREEN, URINE (11/24/2013 3:00 AM CDT) [facility] AMPHETAMINE Presumptive Positive (A) Negative [facility] QUAL, URINE LABORATORY SERVICES - ALYSA BRITTON BARBITURATE Negative Negative [facility] QUAL, URINE LABORATORY SERVICES - ALYSA BRITTON BENZODIAZEPINE Negative Negative [facility] QUAL, URINE LABORATORY SERVICES - ALYSA BRITTON COCAINE QUAL Negative Negative [facility] URINE LABORATORY SERVICES - ALYSA BRITTON OPIATE QUAL, Negative Negative [facility] URINE LABORATORY SERVICES - ALYSA BRITTON CANNABINOIDS Negative Negative [facility] QUAL, URINE LABORATORY SERVICES - ALYSA BRITTON PCP QUAL, URINE Negative Negative [facility] LAB[facility] - ALYSA BRITTON CREATININE, 174.2 29.0 - 226.0 mg/dL [facility] URINE LABORATORY SERVICES - ALYSA BRITTON Specimen Urine Narrative Performed At CUT-OFF CONCENTRATIONS FOR EACH DRUG CLASS [facility] LAB [facility] DRUG ng/mL SE [facility] - [place] Amphetamines 1000 Barbiturates 200 Benzodiazepines 200 Cocaine metabolite 300 Opiates 2000 Marijuana metabolites 50 Phencyclidine 25 Performing Organization Address [facility] one [facility] LABORATORY SERVICES CLIA# [id number] [place], [place] [address] [address] LABORATORY SERVICES CLIA# [id number] [place] [address] * URINALYSIS WITH REFLEX CULTURE (11/24/2013 3:00 AM CDT) COLOR UA Yellow Pale to dark yellow [facility] LABORATORY SERVICES - ALYSA BRITTON CLARITY UA Turbid (A) Clear [facility] - ALYSA BRITTON SPECIFIC 1.018 1.003 - 1.035 EUGENE GRAVITY UA LABORATORY SERVICES - ALYSA BRITTON PH UA 7.5 5.0 - 8.0 [facility] LAB[facility]ORY SERVICES - ALYSA BRITTON LEUKOCYTE 2+ (A) Negative [facility] - AL[place]SA BR[place]TON NITRITE UA Negative Negative [facility] - ALYSA BR[place]TON PROTEIN UA 1+ (A) Negative [facility] [place] GLUCOSE UA Negative Negative [facility] [place] KETONES UA Negative Negative [facility] [place] UROBILINOGEN UA 2.0 (A) <2.0 mg/dL [facility] - ALYSA BRITTON BILIRUBIN UA Negative Negative [facility] - [place] BLOOD UA Negative Negative [facility] [place] WBC UA 3-5 (A) 0 - 2 /hpf [facility] [place] BR[place] RBC UA 6-10 (A) 0 - 2 /hpf [facility] - [place] BACTERIA UA 4+ (A) Negative /hpf [facility] - ALYSA BRITTON AMORPHOUS Present (A)Comment: 1+ Absent [facility] - [place]SA BRITTON CALCIUM Present (A)Comment: 2+ Absent [facility] - AL[place]SA BRITTON COMMENT, URINE Mucous: Few [facility] - ALYSA BRITTON Specimen Urine Narrative Performed At Based on results, a urine culture has been reflexed. [facility] - ALYSA BRITTON Performing Organization Address City/State/Zipcode Ph one Number [facility] CLIA# [id number] [place] [address] - ALYSA BRITTON [address] [place], [place] [address]Y LABORATORY SERVICES CLIA# [id number] [place] [address] - ALYSA BRITTON [address] [place] [address] documented in this encounter Visit Diagnoses Diagnosis Amphetamine abuse, continuous - Primary Nondependent amphetamine or related act ing sympathomimetic abuse, continuous Suicidal ideation documented in this encounter
--- OUTSIDE RECORDS SUMMARY | 2019-10-21 18:16 | XMS REPORT | Encounter Summary ---
Author Author [facility] Organization [facility] Address Unknown Phone Unavailable Care Team Providers Care Woods Superintendent Name Role Phone Robby Rajan CONSTANTIN Unavailable Phong Stephens MD PCP Unavailable Reason for Visit * Reason Comments Diabetes Nasal Congestion Vomiting had x2 wks Encounter Details Care Team Description Date Type Department Phong Stephens MD NO ADDRESS ON FILE Poor appetite (Primary Dx); Acute URI; Cellulitis, neck 03/31/2013 Office Visit [facility] Primar y Care [address] [address] Social History Date Tobacco Use Types Packs/Day Years Used Current Every Day Smoker Cigarettes 1 27 Smokeless Tobacco: Never Used Comments: STARTED SMOKING AGE 11 Drinks/Week oz/Week Comments Alcohol Use "very rarely" No Sex Assigned at Date Recorded Not on file Industry Job Start Date Occupation Not on file Not on file Not on file Travel End Travel History Travel Start No recent travel history available. documented as of this encounter Last Filed Vital Signs Reading Time Taken Comments Vital Sign 110/60 03/31/2013 11:52 AM CDT Blood Pressure - - Pulse 36.6 C (97.8 F) 03/31/2013 11:52 AM CDT Temperature - - Respiratory Rate - - Oxygen Saturation - - Inhaled Oxygen Concentration 125.6 kg (277 lb) 03/31/2013 11:52 AM CDT Weight 158.8 cm (5' 2.5") 03/31/2013 11:52 AM CDT Height 49.86 03/31/2013 11:52 AM CDT Body Mass Index documented in this encounter Progress Notes * Phong Stephens MD - 04/02/2013 2:48 PM CDT Subjective: Ayden Odom is a 42 y.o. female. Patient Active Problem List Diagnosis [...] Ulnar tunnel syndrome 354.2 Chest pain 786.50 Current Outpatient Prescriptions on File Prior to Visit Medication Sig Dispense Refill potassium chloride SR (K-DUR) 10 mEq tablet Take 1 Tab by mouth 2 times celestino y. 180 Tab 2 COMBIVENT RESPIMAT 20-100 mcg/actuation Inhalation Aero INHALE 1 PUFF BY SHIRIN TH FOUR TIMES DAILY 4 Gram 5 loratadine (CLARITIN) 10 mg Oral tablet TAKE 1 TABLET BY MOUTH DAILY 30 Tab 5 fluticasone (FLONASE) 50 mcg/spray Both Nostril SpSn Administer 2 Sprays in each nostril daily. 16 Gram 3 warfarin (COUMADIN) 5 mg Oral tablet 2 tabs daily on days 1 and 2, then 1 ta b on day 3, then repeat cycle 50 Tab 5 traMADol (ULTRAM) 50 mg Oral tablet TAKE 2 TABLETS BY MOUTH EVERY 6 HOURS NEEDED FOR PAIN 60 Tab 1 SUMAtriptan (IMITREX) 100 mg Oral tablet TAKE 1 TABLET BY MOUTH DIRECTED (MAY REPEAT IN 2 HOURS, MAX OF 2 TABLETS IN 24 HOURS) 8 Tab 5 insulin aspart (NOVOLOG FLEXPEN) 100 unit/mL subCUT InPn 15 units tid 15 mL 5 Insulin [place], Disposable, (BD INSULIN PEN NEEDLE UF SHORT) 31 X 5/16 " Mi sc Ndle 1 Package 11 insulin glargine (LANTUS) 100 unit/mL subCUT 10 units hs 15 mL 11 ibuprofen (MOTRIN) 800 mg Oral tablet TAKE 1 TABLET BY MOUTH EVERY 8 HOURS A S NEEDED FOR PAIN 100 Tab 3 atorvastatin (LIPITOR) 20 mg Oral tablet TAKE 1 TABLET BY MOUTH DAILY AT BED TIME 90 Tab 1 furosemide (LASIX) 40 mg Oral tablet Take 1 Tab by mouth 2 times daily. 180 Tab 3 gabapentin (NEURONTIN) 600 mg Oral tablet Take 1 Tab by mouth 4 times daily. 120 Tab 11 OXcarbazepine (TRILEPTAL) 150 mg Oral tablet Take 300 mg by mouth daily at b edtime. topiramate (TOPAMAX) 100 mg Oral tablet Take 1 Tab by mouth 2 times daily. 60 Tab 5 Oxygen-Air Delivery Systems Misc Leisa Take 2 L/min by inhalation daily at be dtims. ACCU-CHEK ACTIVE CARE Misc Kit by See Admin Instructions route. Before meals , at bedtime, and as needed cyclobenzaprine (FLEXERIL) 10 mg Oral tablet Take 1 Tab by mouth 3 times cathleen ly as needed for Spasm. 9 Tab 0 ipratropium-albuterol (DUONEB) 0.5 mg-3 mg(2.5 mg base)/3 mL Inhalation Nebu Take 3 mL by inhalation every 6 hours as needed for Shortness of Breath. 90 mL 5 SUMAtriptan (IMITREX) 100 mg Oral tablet TAKE 1 TABLET BY MOUTH DIRECTED (MAY REPEAT IN 2 HOURS, MAX OF 2 TABLETS IN 24 HOURS) 8 Tab 5 temazepam (RESTORIL) 15 mg Oral capsule Take 15 mg by mouth. 2 at hs acetaminophen (TYLENOL EXTRA STRENGTH) 500 mg Oral tablet Take 1-2 Tabs by m outh every 6 hours as needed for Pain. 100 Tab 2 levalbuterol HFA (XOPENEX HFA) 45 mcg/Actuation Inhalation HFAA Take 2 Puffs by inhalation every 6 hours. 1 Inhaler 5 No current facility-administered medications on file prior to visit. HPI: Ms. Odom complains of the following (by systems): Diabetes Type II complaints: medication compliance: compliant most of the time , diabetic diet compliance: noncompliant some of the time, home glucose monitori ng: is performed sporadically Hypertension related symtoms/issues: taking medications as instructed, no side effects of medications, no chest pain on exertion, no dyspnea on exertion, no ed darnell URI associated symtoms: sore throat, congestion, post nasal drip, ear pressure, sinus pressure, non productive cough and x several days Also has area r side neck x several days that is red and raised She does report being @ 3mo clean of drugs Review of Systems: MATILDE has all of the following chronically: Headache Dizziness Chest pain Shortness of breath Bowel changes Bladder changes Pain in muscle or joints Exam/Objective: Normal Exam for Routine Visits: \\Blood pressure 110/60, temperature 97.8 F (36 .6 C), height 5' 2.5" (1.588 m), weight 277 lb (125.646 kg). General appearance:more healthy appearing, active, alert, cooperative, social, n ormally nourished, and in no acute distress Lungs: breath sounds equal, clear to auscultation bilaterally, no retractions, n o stridor, normal respiratory effort Heart: regular rate and rhythm, S1, S2 normal, no murmur, click, rub, gallop, or abnormal sounds. Abdomen: soft, non-tender. Bowel sounds normal. No masses, no organomegaly. Ac tive bowel sounds. Extremities: symmetrical edematous. HEENT: congested, yellow drain. Small raised red pustule r neck with small open ing / excoriation Assessment and Plan: ASSESSMENT: Encounter Diagnoses Name Primary? Poor appetite Yes Acute URI Cellulitis, neck PLAN: Orders Placed This Encounter mupirocin calcium (BACTROBAN) 2 % Cream omeprazole (PRILOSEC) 20 mg Tablet, Delayed Release (E.C.) claritin Appropriate medications prescribed (see detailed AVS). Appropriate patient instructions provided (see detailed AVS). Follow-up as I have indicated. Medications and options explained to include common side effects. Understanding of medications, course, diagnosis, and expectations were expressed by patient/g uardian. documented in this encounter Plan of Treatment Not on filedocumented as of this encounter Visit Diagnoses Diagnosis Poor appetite - Primary Anorexia Acute URI Acute upper respiratory infections of u nspecified site Cellulitis, neck Cellulitis and abscess of neck documented in this encounter
--- OUTSIDE RECORDS SUMMARY | 2019-10-21 18:16 | XMS REPORT | Encounter Summary ---
Author Author [facility] Organization [facility] Address Unknown Phone Unavailable Care Team Providers Care Transfer Controller Name Role Phone King Robby Мария KILLIAN Unavailable Phong Stephens MD PCP Unavailable Encounter Details Care Team Description Date Type Department Phong Stephens MD NO ADDRESS ON FILE 05/12/2013 Abstract [facility] [address] [id number] Social History Date Tobacco Use Types Packs/Day [...]
--- OUTSIDE RECORDS SUMMARY | 2019-10-21 18:16 | XMS REPORT | Encounter Summary ---
Author Author [facility] Organization [facility] Address Unknown Phone Unavailable Care Team Providers Care Furniture Packer Name Role Phone King Robby Мария DIRECTOR OF MUSIC Unavailable Phong Stephens MD PCP Unavailable Reason for Visit * Reason Comments Altered mental status "confusion worse today" per pt Encounter Details Care Team Description Date Type Department Bubba Carter MD [address] [place] [address] Tremor (Primary Dx); Anxiety 05/09/2013 Office Visit [facility] Primar y Care [place] [address] [place] [address] Social History Date Tobacco Use [...] Signs Reading Time Taken Comments Vital Sign 110/70 05/09/2013 1:50 PM PHARMACIST MANAGER Blood Pressure - - Pulse 36.9 C (98.5 F) 05/09/2013 1:50 PM PHARMACIST MANAGER Temperature - - Respiratory Rate - - Oxygen Saturation - - Inhaled Oxygen Concentration 128.4 kg (283 lb) 05/09/2013 1:50 PM PHARMACIST MANAGER Weight 157.5 cm (5' 2") 05/09/2013 1:50 PM PHARMACIST MANAGER Height 51.76 05/09/2013 1:50 PM PHARMACIST MANAGER Body Mass Index documented in this encounter Progress Notes * Bubba Carter MD - 05/09/2013 2:21 PM PHARMACIST MANAGER SUBJECTIVE: Ayden Odom is a 42 y.o. female seen for Chief Complaint Patient presents with Altered mental status "confusion worse today" per pt Notes tremor of UEs, new. No flexeril or ultram for a week (? Serotonin syndrom e). Denies drugs or alcohol for a month, but sensation is similar to withdrawa l. REVIEW OF SYMPTOMS Constitutional neg for fever. OBJECTIVE: BP 110/70 | Temp(Src) 98.5 F (36.9 C) | Ht 5' 2" (1.575 m) | Wt 283 lb (128. 368 kg) | BMI 51.75 kg/m2 Generally the patient appears well. HEENT is within normal limits. Cardiac exam shows S1 and S2 normal, with no murmurs, clicks, gallops or rubs. Heart is reg ular in rate and rhythm. The chest is clear with no wheezes or rales. There is n o lower extremity edema. Minor LUE tremor noted. Pt is alert and oriented, but appears anxious. Skin is warm and dry. ASSESSMENT: Encounter Diagnoses Name Primary? Tremor Yes Anxiety PLAN: Orders Placed This Encounter OXCARBAZEPINE LEVEL CMP MAGNESIUM SERUM LORazepam (ATIVAN) 0.5 mg tablet Will review lab and make appropriate recommendations. Ativan added for short te rm use. The plan of care is reviewed with the patient today in detail. An Afte r Visit Summary is also printed for the patient. All concerns are discussed wi th the patient and all questions fully answered. She will call me if any problem s arise. MACIST MANAGER documented in this encounter Plan of Treatment Not on filedocumented as of this encounter Results * MAGNESIUM LEVEL (05/09/2013 2:15 PM PHARMACIST MANAGER) MAGNESIUM 2.0 1.8 - 2.4 mg/dL [facility] [employer] [facility] - ALYSA REBA Specimen Blood specimen (specimen) Performing Organization Address City/State/Zipcode Ph one Number [facility] LABORATORY SERVICES CLIA# [id number] [place] [address] - ALYSA REBA [address] [facility]ORY SERVICES CLIA# [id number] [place] [address] - ALYSA BRITTON [address] [facility] * COMPREHENSIVE METABOLIC PANEL (05/09/2013 2:15 PM PHARMACIST MANAGER) [facility] SODIUM 140 134 - 145 mmol/L [facility] [place]SA BRITTON POTASSIUM 3.7 3.5 - 5.1 mmol/L [facility] AL[place]SA BRITTON CHLORIDE 103 98 - 107 mmol/L [facility] [place]SA BRITTON CO2 25 22 - 31 mmol/L [facility] REBA CALCIUM 8.5 8.5 - 10.1 mg/dL [facility] - [facility] REBA BUN 22 (H) 7 - 20 mg/dL [facility] - [facility] REBA CREATININE 0.85 0.51 - 0.95 mg/dL [facility] - [place]SA BRITTON GLUCOSE 146 (H) 70 - 100 mg/dL [facility] - [facility] REBA TOTAL PROTEIN 7.7 6.4 - 8.2 g/dL [facility] - [place]SA BRITTON ALBUMIN 3.7 3.4 - 5.0 g/dL [facility] - [facility] REBA BILIRUBIN TOTAL 0.3 <=1.1 mg/dL [facility] - [facility] REBA ALKALINE 142 (H) 40 - 136 U/L [facility] - ALYSA BRITTON AST 11 10 - 40 U/L [facility] - ALYSA BRITTON ALT 35 25 - 70 U/L [facility] - ALYSA BRITTON GFR 74 >=60 mL/min/1.73 sq [facility] Comment: meter LABORATORY eGFR has not been validated SERVICES - [facility] for use in the elderly (> 70 THOROFARE years of age), women, patients with serious co-morbid conditions, or persons with extremes of body size or muscle mass and should also be interpreted with caution in patients with acute kidney failure, dialysis dependant patients, patients reporting exceptional dietary intake (e.g. vegetarian diet, high protein diets, creatine supplementation), and patients with severe liver disease. Based on National Kidney Disease Education Program GFR, 90 >=60 mL/min/1.73 sq [facility] [place] Comment: meter LABORATORY eGFR has not been validated SERVICES [facility] for use in the elderly (> 70 THOROFARE years of age), women, patients with serious co-morbid conditions, or persons with extremes of body size or muscle mass and should also be interpreted with caution in patients with acute kidney failure, dialysis dependant patients, patients reporting exceptional dietary intake (e.g. vegetarian diet, high protein diets, creatine supplementation), and patients with severe liver disease. Based on National Kidney Disease Education Program Specimen Blood specimen (specimen) Performing Organization Address City/[facility] Ph one Number [facility] CLIA# [id number] CLEMENTE RIOJAS [address] [address] LABORATORY SERVICES CLIA# [id number] [place] [address] - [address] * OXCARBAZEPINE LEVEL (05/09/2013 2:15 PM PHARMACIST MANAGER) OXCARBAZEPINE 5 3 - 35 mcg/mL [facility] Comment: LABORATORIES Test Performed by: [facility] [place] [id number] Accounting Manager Assistant Controller: Taqueria Rice III, M.D. Specimen Blood specimen (specimen) Performing Organization Address [facility] Ph one Number [facility]IES [phone] - [facility] documented in this encounter Visit Diagnoses Diagnosis Tremor - Primary Abnormal involuntary movements Anxiety Anxiety state, unspecified documented in this encounter
--- OUTSIDE RECORDS SUMMARY | 2019-10-21 18:16 | XMS REPORT | Encounter Summary ---
Author Author [facility] Organization [facility] Address Unknown Phone Unavailable Care Team Providers Care Freelance Digital Project Manager Name Role Phone Robby Rajan APRN Unavailable Phong Stephens MD PCP Unavailable Reason for Visit * Reason Comments Urinary Catheter Problem * Auth/Cert Referred By Contact Referred To Contact Status Reason Specialty Diagnoses / Procedures [facility] Emergency [address] [place] [address] Closed Emergency Medicine Encounter Details Care Team Description Date Type Department Saturnino Canales MD NO ADDRESS ON FILE Mechanical complication due to urethral (indwelling) catheter (Primary Dx) 04/07/2013 Emergency [facility] Emergency Department [address] [address] Social History Date Tobacco Use [...] Date Medication Sig Dispensed Refills 01/15/2013 Insulin [place], 1 Package 11 Disposable, (BD INSULIN PEN [...] meals, at bedtime, and as needed 12/29/2014 traZODone (DESYREL) 100 Take 300 mg 0 mg tablet by mouth daily at bedtime 3 tabs. 03/31/2013 05/04/2013 mupirocin calcium Apply to 15 Gram 1 (BACTROBAN) 2 % affected area CreamIndications: 2 times Cellulitis, neck daily. 03/31/2013 06/17/2013 omeprazole (PRILOSEC) 20 Take 1 Tab by 30 Tab 1 mg Tablet, Delayed mouth daily Release before (E.C.)Indications: Poor breakfast. appetite 03/10/2013 12/29/2014 COMBIVENT RESPIMAT 20-100 INHALE 1 PUFF 4 Gram 5 mcg/actuation Inhalation BY MOUTH FOUR Aero TIMES DAILY 03/10/2013 10/08/2013 loratadine (CLARITIN) 10 TAKE 1 TABLET 30 Tab 5 mg Oral tablet BY MOUTH DAILY 03/10/2013 05/03/2013 warfarin (COUMADIN) 5 mg 2 tabs daily 50 Tab 5 Oral tabletIndications: on days 1 and Pulmonary embolism and 2, then 1 tab infarction on day 3, then repeat cycle 02/18/2013 06/05/2013 traMADol (ULTRAM) 50 mg TAKE 2 60 Tab 1 Oral tablet TABLETS BY MOUTH EVERY 6 HOURS NEEDED FOR PAIN 02/18/2013 12/31/2013 SUMAtriptan (IMITREX) 100 TAKE 1 [...] times tablet daily as needed for Spasm. 12/04/2012 05/04/2013 ibuprofen (MOTRIN) 800 mg TAKE 1 TABLET 100 Tab 3 Oral tablet BY MOUTH EVERY 8 HOURS NEEDED FOR PAIN 11/18/2012 06/17/2013 atorvastatin (LIPITOR) 20 TAKE 1 TABLET 90 Tab 1 mg Oral tablet BY MOUTH DAILY AT BEDTIME 07/09/2012 08/11/2013 furosemide (LASIX) 40 mg Take 1 Tab by 180 Tab 3 Oral tablet mouth 2 times daily. 06/07/2012 06/17/2013 gabapentin (NEURONTIN) Take 1 Tab by 120 Tab 11 600 mg Oral mouth 4 times tabletIndications: Type daily. II or unspecified type diabetes mellitus without mention of complication, not stated as uncontrolled 11/06/2011 12/28/2014 SUMAtriptan (IMITREX) 100 TAKE 1 TABLET 8 Tab 5 mg Oral tablet BY MOUTH DIRECTED (MAY REPEAT IN 2 HOURS, MAX OF 2 TABLETS IN 24 HOURS) 05/04/2013 temazepam (RESTORIL) 15 Take 15 mg by 0 mg Oral capsule mouth. 2 at hs documented as of this encounter ED Notes * Halie Leung, RN - 04/07/2013 1:29 AM SPICE FUMIGATOR Pt pulled suprapubic cath out on accident. Cath reinserted without difficulty x 1 attempt, 16 grenadian, balloon inflated with 10 ml saline. E FUMIGATOR documented in this encounter Plan of Treatment Not on filedocumented as of this encounter Visit Diagnoses Diagnosis Mechanical complication due to urethral (indwelling) catheter - Primary documented in this encounter
--- OUTSIDE RECORDS SUMMARY | 2019-10-21 18:16 | XMS REPORT | Encounter Summary ---
Author Author [facility] Organization [facility] Address Unknown Phone Unavailable Care Team Providers Care Funeral Planning Counselor Name Role Phone Robby Rajan Мария KILLIAN Unavailable Phong Stephens MD PCP Unavailable Reason for Visit * Reason Comments Medication Refill Encounter Details Care Team Description Date Type Department Phong Stephens MD NO ADDRESS ON FILE 04/01/2013 Refill [facility] Primar y Care [address] [address] Social History Date Tobacco Use [...]
--- OUTSIDE RECORDS SUMMARY | 2019-10-21 18:16 | XMS REPORT | Encounter Summary ---
Author Author [facility] Organization [facility] Address Unknown Phone Unavailable Care Team Providers Care Elementary School Reading Teacher Name Role Phone King Robby Мария KILLIAN Unavailable Phong Stephens MD PCP Unavailable Encounter Details Care Team Description Date Type Department Phong Stephens MD NO ADDRESS ON FILE 04/28/2013 Abstract [facility] Prim[address] [address] Social History Date Tobacco Use [...]
--- OUTSIDE RECORDS SUMMARY | 2019-10-21 18:16 | XMS REPORT | Encounter Summary ---
Author Author [facility] Organization [facility] Address Unknown Phone Unavailable Care Team Providers Care Np Name Role Phone Robby Rajan Мария KILLIAN Unavailable Phong Stephens MD PCP Unavailable Reason for Visit * Reason Comments Medication Refill Encounter Details Care Team Description Date Type Department Phong Stephens MD NO ADDRESS ON FILE 04/10/2013 Refill [facility] Primar y Care [address] [address] Social History Date Tobacco Use [...]
--- OUTSIDE RECORDS SUMMARY | 2019-10-21 18:16 | XMS REPORT | Encounter Summary ---
Author Author [facility] Organization [facility] Address Unknown Phone Unavailable Care Team Providers Care Soil Biology Teacher Name Role Phone King Robby Мария KILLIAN Unavailable Phong Stephens MD PCP Unavailable Encounter Details Care Team Description Date Type Department Phong Stephens MD NO ADDRESS ON FILE 04/28/2013 Abstract [facility] Prim[address] [address] Social History Date Tobacco Use [...]
--- OUTSIDE RECORDS SUMMARY | 2019-10-21 18:16 | XMS REPORT | Encounter Summary ---
Author Author [facility] Organization [facility] Address Unknown Phone Unavailable Care Team Providers Care Manager Talent Acquisition Name Role Phone Robby Rajan Мария KILLIAN Unavailable Phong Stephens MD PCP Unavailable Reason for Visit * Reason Comments Medication Refill Encounter Details Care Team Description Date Type Department Phong Stephens MD NO ADDRESS ON FILE 03/24/2013 Refill [facility] Primar y Care [address] [address] Social History Date Tobacco Use [...]
--- OUTSIDE RECORDS SUMMARY | 2019-10-21 18:16 | XMS REPORT | Encounter Summary ---
Author Author [facility] Organization [facility] Address Unknown Phone Unavailable Care Team Providers Care Field Talent Qualification Specialist Name Role Phone Robby Rajan APRN Unavailable Phong Stephens MD PCP Unavailable Encounter Details Care Team Description Date Type Department 04/21/2013 Emergency [facility] Emergency Department [address] [address] Social History Date Tobacco Use [...] Date Medication Sig Dispensed Refills 01/15/2013 Insulin [place], 1 Package 11 Disposable, (BD INSULIN PEN [...] at hs documented as of this encounter Plan of Treatment Not on filedocumented as of this encounter Visit Diagnoses Not on filedocumented in this encounter
--- OUTSIDE RECORDS SUMMARY | 2019-10-21 18:16 | XMS REPORT | Encounter Summary ---
Author Author [facility] Organization [facility] Address Unknown Phone Unavailable Care Team Providers Care Chemical Mixer Name Role Phone King Robby Мария KILLIAN Unavailable Phong Stephens MD PCP Unavailable Encounter Details Care Team Description Date Type Department Phong Stephens MD NO ADDRESS ON FILE 04/28/2013 Abstract [facility] Prim[address] [address] Social History Date Tobacco Use [...]
--- OUTSIDE RECORDS SUMMARY | 2019-10-21 18:16 | XMS REPORT | Encounter Summary ---
Author Author [facility] Organization [facility] Address Unknown Phone Unavailable Care Team Providers Care Overhead Foreman Name Role Phone King Robby Мария KILLIAN Unavailable Phong Stephens MD PCP Unavailable Reason for Visit * Reason Comments Medication Question Encounter Details Care Team Description Date Type Department Jessica Christian Medication Question 05/12/2013 Telephone [facility] Primar y Care [address] [address] Social History Date Tobacco Use [...] * Telephone Encounter - Jessica Christian - 05/12/2013 12:34 PM ASBESTOS COVERER Caregiver calls to see if Ayden can have a refill on Ativan 0.5. Per Dr Alfaro ls may not have refill of Ativan. It was short term use. STOS COVERER documented in this encounter Plan of Treatment Not on filedocumented as of this encounter Visit Diagnoses Not on filedocumented in this encounter
--- OUTSIDE RECORDS SUMMARY | 2019-10-21 18:16 | XMS REPORT | Encounter Summary ---
Author Author [facility] Organization [facility] Address Unknown Phone Unavailable Care Team Providers Care Customer Manager Name Role Phone Robby Rajan APRN Unavailable Phong Stephens MD PCP Unavailable Encounter Details Care Team Description Date Type Department Self, Bubba Hsieh MD [address] [place] [address] Fts, Outpt Lab 05/09/2013 [facility] Outpatient Encounter Laboratory [address] [address] Social History Date Tobacco Use [...] Date Medication Sig Dispensed Refills 01/15/2013 Insulin [place], 1 Package 11 Disposable, (BD INSULIN PEN [...] mouth daily at bedtime 3 tabs. 03/31/2013 06/17/2013 omeprazole (PRILOSEC) 20 Take 1 Tab by 30 Tab 1 mg Tablet, Delayed mouth daily Release before (E.C.)Indications: Poor breakfast. appetite 03/10/2013 12/29/2014 COMBIVENT RESPIMAT 20-100 INHALE 1 PUFF 4 Gram 5 mcg/actuation Inhalation BY MOUTH FOUR Aero TIMES DAILY 03/10/2013 10/08/2013 loratadine (CLARITIN) 10 TAKE 1 TABLET 30 Tab 5 mg Oral tablet BY MOUTH DAILY 02/18/2013 06/05/2013 traMADol (ULTRAM) 50 mg TAKE [...] times tablet daily as needed for Spasm. 11/18/2012 06/17/2013 atorvastatin (LIPITOR) 20 TAKE 1 [...] Procedure Name Priority Date/Time Associated Diag nosis OXCARBAZEPINE LEVEL Routine 05/09/2013 Tremor 2:15 PM ELECTROMATIC TYPIST Anxiety MAGNESIUM LEVEL Routine 05/09/2013 Tremor 2:15 PM ELECTROMATIC TYPIST Anxiety COMPREHENSIVE METABOLIC Routine 05/09/2013 Tremor PANEL 2:15 PM ELECTROMATIC TYPIST Anxiety documented in this encounter Results * MAGNESIUM LEVEL (05/09/2013 2:15 PM ELECTROMATIC TYPIST) MAGNESIUM 2.0 1.8 - 2.4 mg/dL [facility] - ALYSA BRITTON Specimen Blood specimen (specimen) Performing Organization Address City/State/[facility] Ph one Number [facility] CLIA# [id number] [place] [address] - ALYSA BRITTON [address] [place] [address] LABORATORY SERVICES CLIA# [id number] [place] [address] - ALYSA BRITTON [address] [place] [address] * COMPREHENSIVE METABOLIC PANEL (05/09/2013 2:15 PM ELECTROMATIC TYPIST) SODIUM 140 134 - 145 mmol/L [facility] - ALYSA BRITTON POTASSIUM 3.7 3.5 - 5.1 mmol/L [facility] - ALYSA BRITTON CHLORIDE 103 98 - 107 mmol/L [facility] - ALYSA BRITTON CO2 25 22 - 31 mmol/L [facility] - ALYSA BRITTON CALCIUM 8.5 8.5 - 10.1 mg/dL [facility] - ALYSA BRITTON BUN 22 (H) 7 - 20 mg/dL [facility] - ALYSA BRITTON CREATININE 0.85 0.51 - 0.95 mg/dL [facility] - ALYSA BRITTON GLUCOSE 146 (H) 70 - 100 mg/dL [facility] - ALYSA BRITTON TOTAL PROTEIN 7.7 6.4 - 8.2 g/dL [facility] - ALYSA BRITTON ALBUMIN 3.7 3.4 - 5.0 g/dL [facility] - ALYSA BRITTON BILIRUBIN TOTAL 0.3 <=1.1 mg/dL [facility] - ALYSA BRITTON ALKALINE 142 (H) 40 - 136 U/L [facility] - ALYSA BRITTON AST 11 10 - 40 U/L [facility] - ALYSA BRITTON ALT 35 25 - 70 U/L [facility] - ALYSA BRITTON GFR 74 >=60 mL/min/1.73 sq [facility] Comment: meter LABORATORY eGFR has not been validated SERVICES - [facility] for use in the elderly [...] Program GFR, 90 >=60 mL/min/1.73 sq [facility] Comment: meter LABORATORY eGFR has not been validated SERVICES - [facility] for use in the elderly [...] Address City/State/Zipcode Ph one Number [facility] CLIA# [id number] [place], [place] [address] - [address] LABORATORY SERVICES CLIA# [id number] [place] [address] - [address] * OXCARBAZEPINE LEVEL (05/09/2013 2:15 PM ELECTROMATIC TYPIST) OXCARBAZEPINE 5 3 - 35 mcg/mL [facility] Comment: LABORATORIES Test Performed by: [facility] - [address] [address] Tile Sorter: Taqueria Rice III, M.D. Specimen Blood specimen (specimen) Performing Organization Address City/State/[facility] [[email or web address] Ph one Number [facility] [phone] - [facility] documented in this encounter Visit Diagnoses Diagnosis Tremor Abnormal involuntary movements Anxiety Anxiety state, unspecified documented in this encounter
--- OUTSIDE RECORDS SUMMARY | 2019-10-21 18:16 | XMS REPORT | Encounter Summary ---
Author Author [facility] Organization [facility] Address Unknown Phone Unavailable Care Team Providers Care Application Lead Name Role Phone Robby Rajan VICE PRESIDENT OF RECRUITING Unavailable Phong Stephens MD PCP Unavailable Reason for Visit * Reason Comments Question Encounter Details Care Team Description Date Type Department Jessica Christian Question 04/22/2013 Telephone [facility] Primar Care [address] [address] Social History Date Tobacco Use [...] * Telephone Encounter - Jessica Christian - 04/22/2013 11:27 AM [employer] Mariely Hensley have a shower chair. Per Dr Stephens patient does not qualify for s hower chair. [employer] documented in this encounter Plan of Treatment Not on filedocumented as of this encounter Visit Diagnoses Not on filedocumented in this encounter
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
--- OUTSIDE RECORDS SUMMARY | 2019-10-21 18:16 | XMS REPORT | Encounter Summary ---
Author Author [facility] Organization [facility] Address Unknown Phone Unavailable Care Team Providers Care Steam Conditioning Operator Name Role Phone King Robby Мария KILLIAN Unavailable Phong Stephens MD PCP Unavailable Encounter Details Care Team Description Date Type Department Phong Stephens MD NO ADDRESS ON FILE 05/29/2013 [facility] [address] [phone] Social History Date Tobacco Use Types Packs/Day [...]
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
--- OUTSIDE RECORDS SUMMARY | 2019-10-21 18:16 | XMS REPORT | Encounter Summary ---
Author Author [facility] Organization [facility] Address Unknown Phone Unavailable Care Team Providers Care Line Rider Name Role Phone Robby Rajan Мария KILLIAN Unavailable Phong Stephens MD PCP Unavailable Reason for Visit * Reason Comments Medication Refill Encounter Details Care Team Description Date Type Department Phong Stephens MD NO ADDRESS ON FILE 06/05/2013 Refill [facility] Primar y Care [address] [id number] Social History Date Tobacco Use [...]
--- OUTSIDE RECORDS SUMMARY | 2019-10-21 18:16 | XMS REPORT | Encounter Summary ---
Author Author [facility] Organization [facility] Address Unknown Phone Unavailable Care Team Providers Care Print And Pattern Designer Name Role Phone SatinderRobby Мария KILLIAN Unavailable Phong Stephens MD PCP Unavailable Reason for Visit * Reason Comments Back Injury lower back pain, pain movin g down right leg, fell today Encounter Details Care Team Description Date Type Department Idania Arnold, RECENTERER [address] [place] [address] Back pain (Primary Dx); Fall; Head injury, acute, without loss of consciousness 2013 Office Visit [facility] [address] [place] [address] Social History Date Tobacco Use [...] Signs Reading Time Taken Comments Vital Sign 130/60 2013 6:55 PM FIVE ROLL REFINER BATCH MIXER Blood Pressure - - Pulse 36.7 C (98 F) 2013 6:55 PM FIVE ROLL REFINER BATCH MIXER Temperature - - Respiratory Rate - - Oxygen Saturation - - Inhaled Oxygen Concentration 129.3 kg (285 lb) 2013 6:55 PM FIVE ROLL REFINER BATCH MIXER Weight 158.8 cm (5' 2.5") 2013 6:55 PM FIVE ROLL REFINER BATCH MIXER Height 51.3 2013 6:55 PM FIVE ROLL REFINER BATCH MIXER Body Mass Index documented in this encounter Patient Instructions * Patient Instructions* Idania Arnold, RECENTERER - 2013 7:52 PM FIVE ROLL REFINER BATCH MIXER Briseyda Patient Instructions Head Injury: After Your Visit Your Care Instructions You have had a concussion. A concussion means you hit your head hard enough to i njure your brain. You may have symptoms that last for a few days to months. You may also have changes in how well you think, concentrate, or remember; changes i n your sleep patterns; or other symptoms. Although this is common after a concus ana, any symptoms that are new or that are getting worse could be signs of a mo re serious problem. The doctor has checked you carefully, but problems can develop later. If you not ice any problems or new symptoms, get medical treatment right away. Follow-up care is a tamayo part of your treatment and safety. Be sure to make and g o to all appointments, and call your doctor if you are having problems. It's als o a good idea to know your test results and keep a list of the medicines you brandon e. How can you care for yourself at home? Have another adult watch you closely for the next 24 hours. That person shoul d check for signs that your head injury is getting worse. Put ice or a cold pack on the sore area for 10 to 20 minutes at a time. Put a thin cloth between the ice and your skin. Ask your doctor if you can take an qvis-cbd-kqjuavf pain medicine, such as ac etaminophen (Tylenol), ibuprofen (Advil, Motrin), or naproxen (Aleve). Read and follow all instructions on the label. Do not take two or more pain medicines at the same time unless the doctor told you to. Many pain medicines have acetaminop hen, which is Tylenol. Too much acetaminophen (Tylenol) can be harmful. You may sleep. If your doctor tells you to, have another adult check you at t he suggested times to make sure you are able to wake up, recognize the other kris lt, and act normally. Take it easy for the next few days or longer if you are not feeling well. Do not drink any alcohol for 24 hours or until your doctor tells you it is ok ay. When should you call for help? Call 911 anytime you think you may need emergency care. For example, call if: You have a seizure. You passed out (lost consciousness). You feel very sleepy or confused. Call your doctor now or seek immediate medical care if: You have a new or worse headache. You have new or worse nausea or vomiting. You have a new watery (not like mucus from a cold) or bloody fluid coming fro m your nose or ears. You have tingling, weakness, or numbness in any part of your body. You have trouble walking. Watch closely for changes in your health, and be sure to contact your doctor if you do not get better as expected. Where can you learn more? Go to www.Boastify.InEnTec in the Health Information search box. Enter X549 in the search box to learn more about "Head Injury: After Your Visit. " Last Revised: November 29, [id number] G[employer]. Care instructions adapted under license b y Briseyda. [employer] disclaims any warranty or liability for your use of this informat ion. This information is not intended to represent the ethical and restoration bel iefs of [employer]. This care instruction is for use with your licensed healthcare [facility]. If you have questions about a medical condition or this instruction, always ask your healthcare professional. [employer] disclaims any warranty or liability for your use of this information. [employer] Patient Instructions Back Pain: After Your Visit Your Care Instructions Back pain has many possible causes. It is often related to problems with muscles and ligaments of the back. It may also be related to problems with the nerves, discs, or bones of the back. Moving, lifting, standing, sitting, or sleeping in an awkward way can strain the back. Sometimes you don't notice the injury until later. Arthritis is another common cause of back pain. Although it may hurt a lot, back pain usually improves on its own within several weeks. Most people recover in 12 weeks or less. Using good home treatment and b eing careful not to stress your back can help you feel better sooner. Follow-up care is a tamayo part of your treatment and safety. Be sure to make and g o to all appointments, and call your doctor if you are having problems. Its a lso a good idea to know your test results and keep a list of the medicines you t alcira. How can you care for yourself at home? Sit or lie in positions that are most comfortable and reduce your pain. Try o ne of these positions when you lie down: Lie on your back with your knees bent and supported by large pillows. Lie on the floor with your legs on the seat of a sofa or chair. Lie on your side with your knees and hips bent and a pillow between your legs . Lie on your stomach if it does not make pain worse. Do not sit up in bed, and avoid soft couches and twisted positions. Bed rest can help relieve pain at first, but it delays healing. Avoid bed rest after the first day of back pain. Change positions every 30 minutes. If you must sit for long periods of time, take breaks from sitting. Get up and walk around, or lie in a comfortable positi on. Try using a heating pad on a low or medium setting for 15 to 20 minutes every 2 or 3 hours. Try a warm shower in place of one session with the heating pad. You can also try an ice pack for 10 to 15 minutes every 2 to 3 hours. Put a t hin cloth between the ice pack and your skin. Take pain medicines exactly as directed. If the doctor gave you a prescription medicine for pain, take it as prescribe d. If you are not taking a prescription pain medicine, ask your doctor if you ca n take an ncoe-xoy-gyfmhyg medicine. Take short walks several times a day. You can start with 5 to 10 minutes, 3 o r 4 times a day, and work up to longer walks. Walk on level surfaces and avoid h ills and stairs until your back is better. Return to work and other activities as soon as you can. Continued rest withou t activity is usually not good for your back. To prevent future back pain, do exercises to stretch and strengthen your back and stomach. Learn how to use good posture, safe lifting techniques, and proper body mechanics. When should you call for help? Call your doctor now or seek immediate medical care if: You have new or worsening numbness in your legs. You have new or worsening weakness in your legs. (This could make it hard to stand up.) You lose control of your bladder or bowels. Watch closely for changes in your health, and be sure to contact your doctor if: Your pain gets worse. You are not getting better after 2 weeks. Where can you learn more? Go to www.Boastify.net in the Health Information search box. Enter I594 in the search box to learn more about "Back Pain: After Your Visit." Last Revised: October 18, [id number] Gorsh. Care instructions adapted under license eulalio siddharth Briseyda. [employer] disclaims any warranty or liability for your use of this informat ion. This information is not intended to represent the ethical and restoration bel iefs of [employer]ise[employer]. This care instruction is for use with your licensed healthcare [facility]. If you have questions about a medical condition or this instruction, always ask your healthcare professional. [employer] disclaims any warranty or liability for your use of this information. ROLL REFINER BATCH MIXER documented in this encounter Progress Notes * Idania Arnold NP - 2013 7:29 PM FIVE ROLL REFINER BATCH MIXER HISTORY OF PRESENT ILLNESS Ayden Odom, a 43 y.o. female. HPI Presents with c/o back pain radiating into the right buttock. Symptoms began 5 hours ago when she fell down steps on her friends porch. She landed twisted and hit the back and also the back of her head on the top of the porch. She did not lose consciousness. She has been able to walk with assistance. Associated sympt oms include feeling sleepy. Pt denies nausea or vomiting. Symptoms are worsened by bending and not improved by aleve. Pertinent history includes chronic back pr oblems and hx of diabetes. History Substance Use Topics Smoking status: Current Every Day Smoker -- 2.00 packs/day for 27 years Types: Cigarettes Smokeless tobacco: Never Used Comment: STARTED SMOKING AGE 11 Alcohol Use: No Past Medical History Diagnosis Date Unspecified disease [...] n, not stated as uncontrolled Pulmonary embolism 1998 Embolism and thrombosis of unspecified site Acute venous embolism and thrombosis of unspecified deep vessels of lower ex tremity GERD (gastroesophageal reflux disease) Headache Bipolar disorder, unspecified Seizure disorder a month ago Acute MA 03/2010 CHF (congestive heart failure) .getlabs[24h REVIEW OF SYSTEMS Review of Systems Constitutional: Negative for fever and chills. HENT: Negative for neck pain and neck stiffness. Respiratory: Negative for cough. Cardiovascular: Negative for chest pain. Gastrointestinal: Negative for nausea, vomiting and abdominal pain. Genitourinary: Negative. Negative for hematuria. Musculoskeletal: Positive for back pain. Skin: Negative for rash. Neurological: Positive for headaches. Psychiatric/Behavioral: Negative for behavioral problems, confusion and agitatio n. PHYSICAL EXAM BP 130/60 | Temp(Src) 98 F (36.7 C) | Ht 5' 2.5" (1.588 m) | Wt 285 lb (129. 275 kg) | BMI 51.26 kg/m2 Physical Exam Constitutional: She is oriented to person, place, and time. She appears well-dev eloped and well-nourished. No distress. HENT: Head: Atraumatic. Mouth/Throat: Oropharynx is clear and moist. Eyes: Conjunctivae and EOM are normal. Pupils are equal, round, and reactive to light. Neck: Normal range of motion. Cardiovascular: Normal rate, regular rhythm and normal heart sounds. Pulmonary/Chest: Effort normal and breath sounds normal. Abdominal: Soft. Musculoskeletal: Normal range of motion. Lumbar back: She exhibits normal pulse. Back: Lymphadenopathy: She has no cervical adenopathy. Neurological: She is alert and oriented to person, place, and time. No cranial n erve deficit. Skin: Skin is warm and dry. No rash noted. Psychiatric: She has a normal mood and affect. Her behavior is normal. Office Visit on 05/27/13 (from the past 24 hour(s)) PROTIME-INR Collection Time 05/27/13 7:59 PM Result Value Range PROTIME 36.3 (*) 10.1-11.3 Seconds INR 3.6 (*) 2.0-3.0 *Note: Due to a large number of results for the requested time period, some res ults have not been displayed. A complete set of results can be found in Results Review. ASSESSMENT and PLAN: (724.5) Back pain - Plan: HYDROcodone-acetaminophen (NORCO) 5-325 mg tablet, RI ORAL PRESCRIP DRUG NON CHEMO, PROTIME-INR, cyclobenzaprine (FLEXERIL) 10 mg tabl et, DISCONTINUED: cyclobenzaprine (FLEXERIL) 10 mg tablet (E888.9) Fall - Plan: HYDROcodone-acetaminophen (NORCO) 5-325 mg tablet, RI ORAL PRESCRIP DRUG NON CHEMO, PROTIME-INR, cyclobenzaprine (FLEXERIL) 10 mg tablet, DISCONTINUED: cyclobenzaprine (FLEXERIL) 10 mg tablet Discussed with patient. She landed primarily on her back, no LOC at the time of the accident and no neuro changes. Recommend close observation with return to ER for any changes, reviewed ed handout with pt and her friend who plans to stay w ith her tonight. INR is mildly elevated, Hold coumadin tomorrow and contact PCP on for f urther instructions Back pain: Rx as above Avoid bedrest after the first day Avoid sitting for prolonged periods of time Ice for 15-20 min every 2-3 hours. Seek emergency tx for new numbness in the legs or loss of bladder or bowel contr ol See PCP if no improvement within 2 weeks ROLL REFINER BATCH MIXER documented in this encounter Plan of Treatment Not on filedocumented as of this encounter Procedures Comments Procedure Name Priority Date/Time Associated Diag nosis PROTIME-INR Stat 2013 Back pain 7:59 PM FIVE ROLL REFINER BATCH MIXER Fall documented in this encounter Results * PROTIME-INR (2013 7:59 PM FIVE ROLL REFINER BATCH MIXER) PROTIME 36.3 (H) 10.1 - 11.3 Seconds [facility] FastCall [facility] ALYSA BRITTON INR 3.6 (H) 2.0 - 3.0 [facility] ALYSA BRITTON Specimen Blood specimen (specimen) Performing Organization Address City/State/Zipcode Ph one Number [facility] CLIA# [id number] [place] [address] - ALYSA BRITTON [address] [place] [address] LABORATORY SERVICES IA# [id number] [place] [address] - [address] documented in this encounter Visit Diagnoses Diagnosis Back pain - Primary Backache, unspecified Fall Unspecified fall Head injury, acute, without loss of con sciousness documented in this encounter
--- OUTSIDE RECORDS SUMMARY | 2019-10-21 18:17 | XMS REPORT | Encounter Summary ---
Author Author [facility] Organization [facility] Address Unknown Phone Unavailable Care Team Providers Care Tug Boat Captain Name Role Phone Robby Rajan APRN Unavailable Phong Stephens MD PCP Unavailable Encounter Details Care Team Description Date Type Department 12/24/2012 Emergency [facility] Emergency Department [address] [address] Social History Date Tobacco Use [...] Date End Date Medication Sig Dispensed Refills 10/05/2007 Oxygen-Air Delivery Take 2 L/min 0 Systems Misc Leisa by inhalation daily at bedtime. 10/05/2007 ACCU-CHEK ACTIVE CARE by See Admin 0 Misc Kit Instructions route. Before meals, at bedtime, and as needed 12/04/2012 05/04/2013 ibuprofen (MOTRIN) 800 mg TAKE 1 TABLET 100 Tab 3 Oral tablet BY MOUTH EVERY 8 HOURS NEEDED FOR PAIN 11/25/2012 12/25/2012 HYDROcodone-acetaminophen Take 2 Tabs 6 Tab 0 (LORTAB) 5-500 mg Oral by mouth tablet every 6 hours as needed for Pain. 11/18/2012 06/17/2013 atorvastatin (LIPITOR) 20 TAKE 1 TABLET 90 Tab 1 mg Oral tablet BY MOUTH DAILY AT BEDTIME 09/23/2012 03/10/2013 loratadine (CLARITIN) 10 Take 1 Tab by 30 Tab 11 mg Oral mouth daily. tabletIndications: Acute URI 09/06/2012 01/15/2013 Insulin [place], 1 Package 11 Disposable, (BD INSULIN PEN NEEDLE UF SHORT) 31 X 5/16 " Mis NdleIndications: Type II or unspecified type diabetes mellitus without mention of complication, not stated as uncontrolled 08/15/2012 03/10/2013 fluticasone (FLONASE) 50 Administer 2 16 Gram 3 mcg/spray Both Nostril Sprays in SpSnIndications: Acute each nostril URI daily. 08/12/2012 03/10/2013 warfarin (COUMADIN) 5 mg 2 tabs daily 50 Tab 5 Oral tabletIndications: on days 1 and Pulmonary embolism and 2, then 1 tab infarction on day 3, then repeat cycle 08/06/2012 12/25/2012 traMADol (ULTRAM) 50 mg Take 2 Tabs 60 Tab 2 Oral tabletIndications: by mouth Lumbago every 6 hours as needed for Pain. 07/11/2012 03/24/2013 potassium chloride SR TAKE 1 TABLET 180 Tab 2 (K-DUR) 10 mEq Oral BY MOUTH tablet TWICE DAILY 07/09/2012 08/11/2013 furosemide (LASIX) 40 mg Take 1 Tab by 180 Tab 3 Oral tablet mouth 2 times daily. 06/07/2012 06/17/2013 gabapentin (NEURONTIN) Take 1 Tab by 120 Tab 11 600 mg Oral mouth 4 times tabletIndications: Type daily. II or unspecified type diabetes mellitus without mention of complication, not stated as uncontrolled 04/10/2012 01/09/2013 ibuprofen (MOTRIN) 800 mg Take 1 Tab by 100 Tab 2 Oral tablet mouth every 8 hours as needed for Pain, Mild. 11/06/2011 12/28/2014 SUMAtriptan (IMITREX) 100 TAKE 1 TABLET 8 Tab 5 mg Oral tablet BY MOUTH DIRECTED (MAY REPEAT IN 2 HOURS, MAX OF 2 TABLETS IN 24 HOURS) 05/04/2013 temazepam (RESTORIL) 15 Take 15 mg by 0 mg Oral capsule mouth. 2 at hs 04/01/2013 tiotropium (SPIRIVA) 18 Take 18 mcg 0 mcg Inhalation capsule by inhalation daily. documented as of this encounter Plan of Treatment Not on filedocumented as of this encounter Visit Diagnoses Not on filedocumented in this encounter
--- OUTSIDE RECORDS SUMMARY | 2019-10-21 18:17 | XMS REPORT | Encounter Summary ---
Author Author [facility] Organization [facility] Address Unknown Phone Unavailable Care Team Providers Care Clamp Remover Name Role Phone Robby Rajan CONSTANTIN Unavailable Phong Stephens MD PCP Unavailable Reason for Visit * Reason Comments Urinary Catheter Problem Brought supplies to ER requ esting to have her supra pubic catheter to be changed. * Auth/Cert Referred By Contact Referred To Contact Status Reason Specialty Diagnoses / Procedures [facility] Emergency [address] [place] [address] Closed Emergency Medicine Encounter Details Care Team Description Date Type Department Phong Stephens MD NO ADDRESS ON FILE Urinary retention (Primary Dx) 03/12/2013 Emergency [facility] Emergency Department [address] [address] Social History Date Tobacco Use [...] Date Medication Sig Dispensed Refills 01/15/2013 Insulin [place], 1 Package 11 Disposable, (BD INSULIN PEN [...] Before meals, at bedtime, and as needed 03/10/2013 12/29/2014 COMBIVENT RESPIMAT 20-100 INHALE 1 [...] Oral tablet BY MOUTH DAILY AT BEDTIME 07/11/2012 03/24/2013 potassium chloride SR TAKE 1 [...] inhalation daily. documented as of this encounter ED Notes * Lakeisha Abdi RN - 03/12/2013 10:58 AM CDT Pt brought supplies to the ER for supra pubic catheter change. Reports that she just "got out of treatment" and hasn't had catheter changed since mid January. Removed catheter from mid , cleaned stoma site with betadine & reinserted, without difficulty the 16 kittitian catheter that pt provided. Urine return pink tinged. Instructed pt that she needs to follow up with [facility] for her further care of her catheter since she reported that this is who has been c hanging it for her. * Lakeisha Abdi RN - 03/12/2013 10:34 AM CDT Awakened pt for triaging. Reports that she has a suprapubic catheter and doesn' t have a urologist. Inquired as to who changed her catheter in January & pt stated "[facility]." Does not give reason why she d idn't return there for care today. Immediately back to sleep in chair in waitin g room. * Lakeisha Abdi RN - 03/12/2013 10:29 AM CDT PT sleeping soundly in chair in waiting room. section crews activities clerk reports that p t stated that her catheter has not been changed since January & it is leaking. documented in this encounter Plan of Treatment Not on filedocumented as of this encounter Visit Diagnoses Diagnosis Urinary retention - Primary Retention of urine, unspecified documented in this encounter
--- OUTSIDE RECORDS SUMMARY | 2019-10-21 18:17 | XMS REPORT | Encounter Summary ---
Author Author [facility] Organization [facility] Address Unknown Phone Unavailable Care Team Providers Care Needle Punch Machine Operator Helper Name Role Phone Robby Rajan CONSTANTIN Unavailable Phong Stephens MD PCP Unavailable Reason for Visit * Reason Comments Needs Orders Written Referral Request Encounter Details Care Team Description Date Type Department Phong Stephens MD NO ADDRESS ON FILE Needs Orders Written; Referral Request 12/24/2012 Telephone [facility] Primar y Care [address] [address] Social History Date Tobacco [...] encounter Miscellaneous Notes * Telephone Encounter - Patt Malik - 12/24/2012 4:13 PM CDT Pt called requesting that Dr Stephens write an order for her to get a cath leg ba g from ER so she can change it. I let her know that she needed to have her urolo gist take care of this. She said [facility] declined her as a patient. I looked thru her records and she had an appointment to see Dr Summers last month. She sp d he retired (I called [facility], where she was supposed to see him, and gertrude sexton had retired). I let her know her closest option was [facility]. She said that I co charlied make an appointment there. Also I let her know that Dr Stephnes informed me t hat she needed a follow up and that she must make the appointment or call and re schedule. We set up the appt for 01/06/13 at 1445. Briseyda Audrey had no urology pro viders at this time and Dr Buckley/Deepa's office does not take Medicare. I left message for her that she needed to call me back and I would get her set up in . Jessica Christian, Dr Stephens nurse, notified of the situation. documented in this encounter Plan of Treatment Not on filedocumented as of this encounter Visit Diagnoses Not on filedocumented in this encounter
--- OUTSIDE RECORDS SUMMARY | 2019-10-21 18:17 | XMS REPORT | Encounter Summary ---
Author Author [facility] Organization [facility] Address Unknown Phone Unavailable Care Team Providers Care Stevedoring Superintendent Name Role Phone King Robby Мария KILLIAN Unavailable Phong Stephens MD PCP Unavailable Reason for Visit * Reason Comments Medication Refill Encounter Details Care Team Description Date Type Department Reggie Ramirez MD NO ADDRESS ON FILE 02/18/2013 Refill [facility] Primar y Care [address] [address] Social History Date Tobacco Use [...]
--- OUTSIDE RECORDS SUMMARY | 2019-10-21 18:17 | XMS REPORT | Encounter Summary ---
Author Author [facility] Organization [facility] Address Unknown Phone Unavailable Care Team Providers Care Knife Finisher Name Role Phone Robby Rajan APRN Unavailable Phong Stephens MD PCP Unavailable Encounter Details Care Team Description Date Type Department Vincenzo Rodríguez MD [address] [place] [address] 11/25/2012 Abstract [facility] Primar y Care [address] [address] Social History Date Tobacco Use [...]
--- OUTSIDE RECORDS SUMMARY | 2019-10-21 18:17 | XMS REPORT | Encounter Summary ---
Author Author [facility] Organization [facility] Address Unknown Phone Unavailable Care Team Providers Care Health Safety Instructor Name Role Phone Robby Rajan Мария KILLIAN Unavailable Phong Stephens MD PCP Unavailable Reason for Visit * Reason Comments Medication Refill Encounter Details Care Team Description Date Type Department Phong Stephens MD NO ADDRESS ON FILE 12/25/2012 Refill [facility] Primar y Care [address] [address] Social History Date Tobacco Use [...]
--- OUTSIDE RECORDS SUMMARY | 2019-10-21 18:17 | XMS REPORT | Encounter Summary ---
Author Author [facility] Organization [facility] Address Unknown Phone Unavailable Care Team Providers Care Rail Filler Name Role Phone Robby Rajan CONSTANTIN Unavailable Phong Stephens MD PCP Unavailable Reason for Visit * Reason Comments Medication Refill Encounter Details Care Team Description Date Type Department Phong Stephens MD NO ADDRESS ON FILE Acute URI (Primary Dx); Pulmonary embolism and infarction 03/10/2013 Refill [facility] [address] [phone] Social History Date Tobacco Use Types Packs/Day [...] of this encounter Visit Diagnoses Diagnosis Acute URI - Primary Acute upper respiratory infections of u nspecified site Pulmonary embolism and infarction Other pulmonary embolism and infarction documented in this encounter
--- OUTSIDE RECORDS SUMMARY | 2019-10-21 18:17 | XMS REPORT | Encounter Summary ---
Author Author [facility] Organization [facility] Address Unknown Phone Unavailable Care Team Providers Care Fastener Technologist Name Role Phone King Robby Мария KILLIAN Unavailable Phong Stephens MD PCP Unavailable Encounter Details Care Team Description Date Type Department Phong Stephens MD NO ADDRESS ON FILE 01/07/2013 Abstract [facility] [address] [phone] Social History Date Tobacco Use [...]
--- OUTSIDE RECORDS SUMMARY | 2019-10-21 18:17 | XMS REPORT | Encounter Summary ---
Author Author [facility] Organization [facility] Address Unknown Phone Unavailable Care Team Providers Care Inspector Fabric Name Role Phone Robby Rajan Мария KILLIAN Unavailable Phong Stephens MD PCP Unavailable Reason for Visit * Reason Comments Other Encounter Details Care Team Description Date Type Department Reggie Ramirez MD NO ADDRESS ON FILE Other 12/25/2012 Telephone [facility] Care [address] [phone] Social History Date Tobacco Use [...] encounter Miscellaneous Notes * Telephone Encounter - Cecily Wilkinson - 12/25/2012 12:28 PM CDT pts Amaury called stating pt was in pain & wanted Dr Ramirez to see patient today at her appt at 2 pm. Explained pt stated just never mind & hung up, so I cancelled her appt. He said no she was in a lot of pain & needed to be seen for Dr Ramirez to check out her back & do xrays or whatever. Explained Dr Ramirez was not a back Dr & only could do so much & if the patient was in that much pain she would need to go to the ER. Pt stated she could not afford that she wanted to come in explained again about the ER & pain. pts hung up. documented in this encounter Plan of Treatment Not on filedocumented as of this encounter Visit Diagnoses Not on filedocumented in this encounter
--- OUTSIDE RECORDS SUMMARY | 2019-10-21 18:17 | XMS REPORT | Encounter Summary ---
Author Author [facility] Organization [facility] Address Unknown Phone Unavailable Care Team Providers Care Motor Scooter Repairer Name Role Phone Robby Rajan Мария KILLIAN Unavailable Phong Stephens MD PCP Unavailable Reason for Visit * Reason Comments Medication Refill Encounter Details Care Team Description Date Type Department Phong Stephens MD NO ADDRESS ON FILE 03/10/2013 Refill [facility] Care [address] [phone] Social History Date Tobacco Use [...]
--- OUTSIDE RECORDS SUMMARY | 2019-10-21 18:17 | XMS REPORT | Encounter Summary ---
Author Author [facility] Organization [facility] Address Unknown Phone Unavailable Care Team Providers Care Merchandising Representative Name Role Phone Robby Rajan APRN Unavailable Phong Stephens MD PCP Unavailable Reason for Visit * Reason Comments Musculoskeletal Pain left lower rib pain. Hurts more when she moves and takes a deep breath. Pt was an inpatient and she left AMA ab out 2129 because "they would not listen to me and give me something diff erent for my pain, the tramadol was not working" * Auth/Cert Referred By Contact Referred To Contact Status Reason Specialty Diagnoses / Procedures [facility] Med Surg [address] [place] [phone] Closed Inpatient Encounter Details Care Team Description Date Type Department Saturnino Canales MD NO ADDRESS ON FILE Pneumonitis (Primary Dx); Pleuritic chest pain 11/25/2012 Emergency [facility] Emergency Department [place] [address] [place] [address] Social History Date Tobacco Use [...] history available. documented as of this encounter Discharge Instructions * Attachments The following attachments cannot be sent through Care Everywhere.* PNEUMONIA: AFTER YOUR VISIT (BELARUSIAN) documented in this encounter Medications at Time of Discharge Start Date End Date Medication Sig Dispensed Refills 10/05/2007 Oxygen-Air Delivery Take 2 L/min 0 Systems Misc Leisa by inhalation daily at bedtime. 10/05/2007 ACCU-CHEK ACTIVE CARE by See Admin 0 Misc Kit Instructions route. Before meals, at bedtime, and as needed 11/25/2012 12/25/2012 HYDROcodone-acetaminophen Take 2 Tabs 6 [...] daily. tabletIndications: Acute URI 09/06/2012 01/15/2013 Insulin [place], 1 Package 11 Disposable, (BD INSULIN PEN [...] on day 3, then repeat cycle 08/06/2012 11/26/2012 albuterol-ipratropium Take 2 Puffs 1 Inhaler 11 (COMBIVENT) 103-18 by inhalation mcg/Actuation Inhalation every 6 hours Aero as needed for Shortness of Breath. 08/06/2012 12/25/2012 traMADol (ULTRAM) 50 mg Take [...] 8 hours as needed for Pain, Mild. 03/14/2012 11/26/2012 insulin glargine (LANTUS) 35 units in 3 mL 11 100 unit/mL AM & 40 units subCUTIndications: Type in PM II or unspecified type diabetes mellitus without [...] ED Notes * Saturnino Canales MD - 11/25/2012 11:04 PM CDT HISTORY OF PRESENT ILLNESS Ayden Odom. The history is provided by the patient. in the hospital last night for left sided chest pain and ruled out with enzymes. Upset while in hospital about only getting tramadol for pain and left AMA. As p art of workup today a CT chest with contrast came back as atelectasis possible l eft sided pneumonia. No fever, eating and drinking but pain remains. REVIEW OF SYSTEMS Review of Systems Constitutional: Negative for fever and diaphoresis. Respiratory: Positive for cough. Negative for shortness of breath. Cardiovascular: Positive for chest pain (pleuritic chest pain lower left chest). Gastrointestinal: Negative for nausea and vomiting. PAST MEDICAL HISTORY REVIEWED Patient has a past medical history of [...] mercedes; Bipolar disorder, unspecified; Seizure disorder; Acute [place] (03/2010); and CH F (congestive heart failure). She also has no past medical history of Cancer of breast (female), Ovarian cancer, Endometrial cancer, BRCA1 positive, Radiation t herapy, Chemotherapy, Malignant hyperthermia, Latex sensitivity, Unspecified adv erse effect of anesthesia, Obstructive sleep apnea (adult) (pediatric), Difficul t intubation, or Temporomandibular joint disorders, unspecified. Patient's fami ly history includes Breast Cancer in her mother and another family member; Cance r in her father, mother, and other family members; Colon Cancer in her father; D iabetes in her father, mother, and another family member; Healthy in her brother s, daughter, sister, and son; Heart Disease in her father, mother, and another f amily member; Other in her father; Seizures in her brother; and Stroke in her mo ther and another family member. Patient also has past surgical history that in cludes hm mammography (1999); surgical other (1997); carpal tunnel release (2001 ); acrominoplasty (04/29/07); blood transfusion; job and bso (1995); sigmoidosco py,diagnostic (04/19/2009); cystoscopy; hemorrhoidectomy (08/03/2010); excisional biopsy; appendectomy; section; hysterectomy; tubal ligation (1994); cho lecystectomy (1999); and colonoscopy,diagnostic (08/23/2012). Patient reports t hat she has been smoking Cigarettes. She has a 27 pack-year smoking history. Sh carlie has never used smokeless tobacco. She reports that she uses illicit drugs (Met hamphetamines). She reports that she currently engages in sexual activity. She r eports that she does not drink alcohol. Patient has Unspecified Asthma; Bipolar Disorder, Unspecified; [...] (TYLENOL EXTRA STRENGTH) 500 MG ORAL TABLET ALBUTEROL-IPRATROPIUM (COMBIVENT) 103-18 MCG/ACTUATION INHALATION AERO ATORVASTATIN (LIPITOR) 20 MG ORAL TABLET FLUTICASONE (FLONASE) 50 MCG/SPRAY BOTH NOSTRIL SPSN FUROSEMIDE (LASIX) 40 MG ORAL TABLET GABAPENTIN (NEURONTIN) 600 MG ORAL TABLET IBUPROFEN (MOTRIN) 800 MG ORAL TABLET INSULIN GLARGINE (LANTUS) 100 UNIT/ML SUBCUT INSULIN NEEDLES, DISPOSABLE, (BD INSULIN PEN NEEDLE UF SHORT) 31 X 5/16 " MISC NDLE IPRATROPIUM-ALBUTEROL (DUONEB) 0.5 MG-3 MG(2.5 MG BASE)/3 ML INHALATION NEBU LEVALBUTEROL HFA (XOPENEX HFA) 45 MCG/ACTUATION INHALATION HFAA LORATADINE (CLARITIN) 10 MG ORAL TABLET NEOMYCIN-POLYMYXIN B-HYDROCORTISONE (CORTISPORIN OTIC) 3.5-10,000-1 MG-UNIT/ML- % OT OTIC SUSPENSION NITROFURANTOIN MACROCRYSTAL (MACRODANTIN) 50 MG ORAL CAPSULE OXCARBAZEPINE (TRILEPTAL) 150 MG ORAL TABLET OXYCODONE-ACETAMINOPHEN (PERCOCET) 5-325 MG ORAL TABLET OXYGEN-AIR DELIVERY SYSTEMS MISC LEISA POTASSIUM CHLORIDE SR (K-DUR) 10 MEQ ORAL TABLET SUMATRIPTAN (IMITREX) 100 MG ORAL TABLET TEMAZEPAM (RESTORIL) 15 MG ORAL CAPSULE TIOTROPIUM (SPIRIVA) 18 MCG INHALATION CAPSULE TOPIRAMATE (TOPAMAX) 100 MG ORAL TABLET TRAMADOL (ULTRAM) 50 MG ORAL TABLET WARFARIN (COUMADIN) 5 MG ORAL TABLET Medications Modified during this Encounter Medications Discontinued during this Encounter PHYSICAL EXAM INITIAL VS Physical Exam Vitals reviewed. Constitutional: She is oriented to person, place, and time. She appears well-dev eloped and well-nourished. No distress. HENT: Head: Normocephalic and atraumatic. Right Ear: External ear normal. Left Ear: External ear normal. tms retracted but not red Eyes: Conjunctivae and EOM are normal. Pupils are equal, round, and reactive to light. Neck: Neck supple. No JVD present. Cardiovascular: Normal rate, regular rhythm, normal heart sounds and intact dist al pulses. Pulmonary/Chest: Effort normal and breath sounds normal. No stridor. No respirat ory distress. She has no wheezes. She has no rales. No rales noted Abdominal: Soft. Bowel sounds are normal. She [...] Her behavior is normal. DIAGNOSTICS LAB: RADIOLOGY: EKG: PROCEDURES Procedures MEDICAL DECISION MAKING AND PLAN OF CARE REEVALUATION CASE DISCUSSED . New Prescriptions for this Encounter HYDROCODONE-ACETAMINOPHEN (LORTAB) 5-500 MG ORAL TABLET Take 2 Tabs by mouth every 6 hours as needed for Pain. HYDROCODONE-ACETAMINOPHEN (LORTAB) 5-500 MG ORAL TABLET Take 2 Tabs by mouth every 6 hours as needed for Pain. LAST VITALS There were no vitals taken for this visit. CLINICAL IMPRESSION Final diagnoses: Pneumonitis Pleuritic chest pain Coding DISPOSITION, EDUCATION AND MEDICATION RECONCILIATION Medications reconciled. See after visit summary for patient education on discha rged patients. In view of new diagnosis of pneumonitis, added Levaquin 500 mg daily for one wee k and Oked Hydrocodone 5/325 two every six hours the next few days. #20. If a si gnificant change in condition occurs see Dr or return to ER. * Yenny Nowak RN - 11/25/2012 10:44 PM CDT LE pt roomed in er 2 at 2235 * Yenny Nowak RN - 11/25/2012 10:37 PM CDT Attempted to get pt and she is outside smoking. * Rojas Abdi EMT-P - 11/25/2012 10:31 PM CDT This comic book writer went out to get pt and pt was not found in the ER waiting area. * Sukumar Rothman EMT-P - 11/25/2012 10:25 PM CDT Yenny from registration called ER to make us aware that the pt has been verbal ly abusive and cursing at both her and Xiomara the lumber kiln operator on two different occas ion. I went out to ER waiting room and made the pt aware that we are moving pts out as quickly as possible so that we can get her back to a room. I also made he r aware that we do not appreciate her cursing at the staff and that it is not ap propriate and we will get her back just as soon as a room and staff are availabl e. The pt merely nodded. documented in this encounter Plan of Treatment Not on filedocumented as of this encounter Visit Diagnoses Diagnosis Pneumonitis - Primary Pneumonia, organism unspecified Pleuritic chest pain Painful respiration documented in this encounter Administered Medications Action Date Dose Rate Site Medication Order MAR Action 11/25/2012 11:14 PM CDT 500 mg levofloxacin (LEVAQUIN) tablet 500 mg Given 500 mg, Oral, ONE TIME ONLY, 1 dose, Mo n 11/25/12 at 2315, Routine 11/25/2012 11:13 PM CDT 2 Tablets oxyCODONE-acetaminophen (PERCOCET) 5-325 Given mg per tablet 2 Tab 2 Tablet, Oral, ONE TIME ONLY, 1 dose, Sun11/25/12 at 2315, Routine documented in this encounter
--- OUTSIDE RECORDS SUMMARY | 2019-10-21 18:17 | XMS REPORT | Encounter Summary ---
Author Author [facility] Organization [facility] Address Unknown Phone Unavailable Care Team Providers Care Insole Rounder Name Role Phone Robby Rajan Мария KILLIAN Unavailable Phong Stephens MD PCP Unavailable Reason for Visit * Reason Comments Medication Refill Encounter Details Care Team Description Date Type Department Phong Stephens MD NO ADDRESS ON FILE 11/26/2012 Refill [facility] Care [address] [phone] Social History Date Tobacco Use [...]
--- OUTSIDE RECORDS SUMMARY | 2019-10-21 18:17 | XMS REPORT | Encounter Summary ---
Author Author [facility] Organization [facility] Address Unknown Phone Unavailable Care Team Providers Care Dimethylaniline Sulfator Operator Name Role Phone Robby Rajan Мария KILLIAN Unavailable Phong Stephens MD PCP Unavailable Reason for Visit * Reason Comments Medication Refill Encounter Details Care Team Description Date Type Department Phong Stephens MD NO ADDRESS ON FILE 02/18/2013 Refill [facility] Prim[facility] Care [address] [phone] Social History Date Tobacco Use [...]
--- OUTSIDE RECORDS SUMMARY | 2019-10-21 18:17 | XMS REPORT | Encounter Summary ---
Author Author [facility] Organization [facility] Address Unknown Phone Unavailable Care Team Providers Care Public Policy Mediator Name Role Phone Robby Rajan CONSTANTIN Unavailable Phong Stephens MD PCP Unavailable Reason for Visit * Reason Comments Diabetes didn't get lab that was ord ered Cholesterol Problem Encounter Details Care Team Description Date Type Department Phong Stephens MD NO ADDRESS ON FILE DM w/o complication type II (Primary Dx) ; Pulmonary embolism; Methamphetamine abuse 01/09/2013 Office Visit [facility] Prim[facility] Care [address] [phone] Social History Date Tobacco Use [...] Signs Reading Time Taken Comments Vital Sign 108/70 01/09/2013 3:30 PM CDT Blood Pressure 56 01/09/2013 3:30 PM CDT Pulse - - Temperature - - Respiratory Rate - - Oxygen Saturation - - Inhaled Oxygen Concentration 127.5 kg (281 lb) 01/09/2013 3:30 PM CDT Weight 160 cm (5' 3") 01/09/2013 3:30 PM CDT Height 49.78 01/09/2013 3:30 PM CDT Body Mass Index documented in this encounter Progress Notes * Phong Stephens MD - 01/09/2013 4:01 PM CDT Subjective: Ayden Odom is a [...] V15.81 Suicidal ideation V62.84 Overdose of benzodiazepine 969.4 Needs flu shot V04.81 Methamphetamine abuse 305.70 Infectious otitis externa 380.10 Exposure to TB V01.1 Tendonitis of wrist, right 727.05 Carpal tunnel syndrome 354.0 Cubital tunnel syndrome on right 354.2 Ulnar tunnel syndrome 354.2 Chest pain 786.50 Current Outpatient Prescriptions on File Prior to Visit Medication Sig Dispense Refill COMBIVENT RESPIMAT 20-100 mcg/actuation Inhalation Aero INHALE 1 PUFF BY SHIRIN TH FOUR TIMES DAILY 4 Gram 11 traMADol (ULTRAM) 50 mg Oral tablet TAKE 2 TABLETS BY MOUTH EVERY 6 HOURS NEEDED FOR PAIN 60 Tab 1 cyclobenzaprine (FLEXERIL) 10 mg Oral tablet Take 1 Tab by mouth 3 times cathleen ly as needed for Spasm. 9 Tab 0 ibuprofen (MOTRIN) 800 mg Oral tablet TAKE 1 TABLET BY MOUTH EVERY 8 HOURS A S NEEDED FOR PAIN 100 Tab 3 atorvastatin (LIPITOR) 20 mg Oral tablet TAKE 1 TABLET BY MOUTH DAILY AT BED TIME 90 Tab 1 loratadine (CLARITIN) 10 mg Oral tablet Take 1 Tab by mouth daily. 30 Tab 11 Insulin [place], Disposable, (BD INSULIN PEN NEEDLE UF SHORT) 31 X 5/16 " Mi sc Ndle 1 Package 11 fluticasone (FLONASE) 50 mcg/spray Both Nostril SpSn Administer 2 Sprays in each nostril daily. 16 Gram 3 warfarin (COUMADIN) 5 mg Oral tablet 2 tabs daily on days 1 and 2, then 1 ta b on day 3, then repeat cycle 50 Tab 5 ipratropium-albuterol (DUONEB) 0.5 mg-3 mg(2.5 mg base)/3 mL Inhalation Nebu Take 3 mL by inhalation every 6 hours as needed for Shortness of Breath. 90 mL 5 potassium chloride SR (K-DUR) 10 mEq Oral tablet TAKE 1 TABLET BY MOUTH TWIC E DAILY 180 Tab 2 furosemide (LASIX) 40 mg Oral tablet Take 1 Tab by mouth 2 times daily. 180 Tab 3 gabapentin (NEURONTIN) 600 mg Oral tablet Take 1 Tab by mouth 4 times daily. 120 Tab 11 SUMAtriptan (IMITREX) 100 mg Oral tablet TAKE 1 TABLET BY MOUTH DIRECTED (MAY REPEAT IN 2 HOURS, MAX OF 2 TABLETS IN 24 HOURS) 8 Tab 5 temazepam (RESTORIL) 15 mg Oral capsule Take 15 mg by mouth. 2 at hs OXcarbazepine (TRILEPTAL) 150 mg Oral tablet Take 300 mg by mouth daily at b edtime. acetaminophen (TYLENOL EXTRA STRENGTH) 500 mg Oral tablet Take 1-2 Tabs by m outh every 6 hours as needed for Pain. 100 Tab 2 tiotropium (SPIRIVA) 18 mcg Inhalation capsule Take 18 mcg by inhalation cathleen ly. levalbuterol HFA (XOPENEX HFA) 45 mcg/Actuation Inhalation HFAA Take 2 Puffs by inhalation every 6 hours. 1 Inhaler 5 topiramate (TOPAMAX) 100 mg Oral tablet Take 1 Tab by mouth 2 times daily. 60 Tab 5 Oxygen-Air Delivery Systems Misc Leisa Take 2 L/min by inhalation daily at [facility]. ACCU-CHEK ACTIVE CARE Misc Kit by See Admin Instructions route. Before meals , at bedtime, and as needed No current facility-administered medications on file prior to visit. Lab Results Component Value Date/Time HEMOGLOBIN A1C 5.4 12/13/2011 10:38 AM HEMOGLOBIN A1C 5.3 05/23/2011 10:18 AM HEMOGLOBIN A1C 5.2 02/21/2011 2:17 PM MICROALBUMIN, URINE 96.1 12/13/2011 10:46 AM LDL CALCULATED 144* 12/13/2011 10:38 AM LDL CHOLESTEROL, DIRECT 127 05/23/2011 10:18 AM CREATININE 0.75 11/24/2012 9:58 PM Lab Results Component Value Date/Time CREATININE 0.75 11/24/2012 9:58 PM BUN 22.0* 11/24/2012 9:58 PM SODIUM 137 11/24/2012 9:58 PM POTASSIUM 3.7 11/24/2012 9:58 PM CHLORIDE 105 11/24/2012 9:58 PM CO2 28.7 11/24/2012 9:58 PM GFR 91 11/24/2012 9:58 PM HPI: Ms. Odom complains of the following (by systems): Arthritis symptoms: diffuse arthralgias Chest Pain symptoms: none and no recurrence since hospital she left AMA Diabetes Type II complaints: medication compliance: noncompliant some of the t dipak, diabetic diet compliance: noncompliant much of the time, home glucose monit oring: is performed sporadically Hypertension related symtoms/issues: taking medications as instructed, no side effects of medications, no chest pain on exertion, no dyspnea on exertion, no ed darnell Cont to do Meth but is " cutting" back as she approaches planned in patient care next 2 weeks. Review of Systems: ROS Denies all of the following: Headache Dizziness Chest pain Shortness of breath Bowel changes Bladder changes: has been seen in [place] for problems Pain in muscle or joints: chroninc neuropathy pain legs and now more hands and a mady. Exam/Objective: Normal Exam for Routine Visits: \\Blood pressure 108/70, pulse 56, height 5' 3" ( 1.6 m), weight 281 lb (127.461 kg). General appearance: obese, sl restless but gives hx appearing, active, alert, co operative, social, normally nourished, and in no acute distress Lungs: breath sounds equal, clear to auscultation bilaterally, no retractions, n o stridor, normal respiratory effort Heart: regular rate and rhythm, S1, S2 normal, no murmur, click, rub, gallop, or abnormal sounds. Abdomen: soft, non-tender. Bowel sounds normal. No masses, no organomegaly. Ac tive bowel sounds. Extremities: symmetrical non edematous. Assessment and Plan: ASSESSMENT: Encounter Diagnoses Name Primary? DM w/o complication type II Yes Pulmonary embolism Methamphetamine abuse PLAN: Orders Placed This Encounter PROTIME & INR insulin glargine (LANTUS) 100 unit/mL subCUT Currently on coumadin 10mg daily novolog 15 units ac lantus 10units Hs May need cymbalta for neuropathy Discussed with her our inability to cont her care if she continues her inappropr iate actions like leaving AMA and seeking/ continuing care with other providers. Appropriate medications prescribed (see detailed AVS). Appropriate patient instructions provided (see detailed AVS). Follow-up as I have indicated. Medications and options explained to include common side effects. Understanding of medications, course, diagnosis, and expectations were expressed by patient/g uardian. documented in this encounter Plan of Treatment Not on filedocumented as of this encounter Visit Diagnoses Diagnosis DM w/o complication type II - Primary Type II or unspecified type diabetes me llitus without mention of complication, not stated as uncontrolled Pulmonary embolism Other pulmonary embolism and infarction Methamphetamine abuse Nondependent amphetamine or related act ing sympathomimetic abuse, unspecified documented in this encounter
--- OUTSIDE RECORDS SUMMARY | 2019-10-21 18:17 | XMS REPORT | Encounter Summary ---
Author Author [facility] Organization [facility] Address Unknown Phone Unavailable Care Team Providers Care Scrap Collector Name Role Phone Robby Rajan CONSTANTIN Unavailable Phong Stephens MD PCP Unavailable Reason for Visit * Reason Comments Medication Refill Encounter Details Care Team Description Date Type Department Phong Stephens MD NO ADDRESS ON FILE DM w/o complication type II (Primary Dx) 11/26/2012 Refill [facility] [address] [phone] Social History Date Tobacco Use Types Packs/Day [...]
--- OUTSIDE RECORDS SUMMARY | 2019-10-21 18:17 | XMS REPORT | Encounter Summary ---
Author Author [facility] Organization [facility] Address Unknown Phone Unavailable Care Team Providers Care Blender / Cook Name Role Phone Robby Rajan Мария KILLIAN Unavailable Phong Stephens MD PCP Unavailable Reason for Visit * Reason Comments Medication Refill Encounter Details Care Team Description Date Type Department Phong Stephens MD NO ADDRESS ON FILE 02/28/2013 Refill [facility] [place] [address] [place] [address] Social History Date Tobacco Use [...]
--- OUTSIDE RECORDS SUMMARY | 2019-10-21 18:17 | XMS REPORT | Encounter Summary ---
Author Author [facility] Organization [facility] Address Unknown Phone Unavailable Care Team Providers Care Driver License Agent Name Role Phone Robby Rajan APRN Unavailable Phong Stephens MD PCP Unavailable Reason for Visit * Reason Comments Medication Refill Encounter Details Care Team Description Date Type Department Ban Pearce, BENEDICT [address] [place] [address] 02/28/2013 Refill [facility] [address] [place] [address] Social History Date Tobacco Use [...]
--- OUTSIDE RECORDS SUMMARY | 2019-10-21 18:17 | XMS REPORT | Encounter Summary ---
Author Author [facility] Organization [facility] Address Unknown Phone Unavailable Care Team Providers Care Welding Machine Operator Ultrasonic Name Role Phone Robby Rajan Мария KILLIAN Unavailable Phong Stephens MD PCP Unavailable Reason for Visit * Reason Comments Medication Refill Encounter Details Care Team Description Date Type Department Phong Stephens MD NO ADDRESS ON FILE 12/04/2012 Refill [facility] Primar y Care [address] [phone] Social History Date Tobacco Use [...]
--- OUTSIDE RECORDS SUMMARY | 2019-10-21 18:17 | XMS REPORT | Encounter Summary ---
Author Author [facility] Organization [facility] Address Unknown Phone Unavailable Care Team Providers Care Punch Out Crew Member Name Role Phone King Robby Мария KILLIAN Unavailable Phong Stephens MD PCP Unavailable Reason for Visit * Reason Comments Wants Appointment Encounter Details Care Team Description Date Type Department Rehana Valdivia Wants Appointment 12/25/2012 Telephone [facility] Primar [address] [address] Social History Date Tobacco Use [...] encounter Miscellaneous Notes * Telephone Encounter - Rehana Valdivia - 12/25/2012 12:26 PM CDT Patient called wanting an appt with Dr. Ramirez for today @ 2 pm. I informed devonte ent that we did not have a appt @ 2pm. Patient states she is having extreme back pain. I informed patient that if she was having that much back pain that she co uld go to the Emergency Room or Urgent Care on [address]. Patient states she is c alling administration on then hung up. documented in this encounter Plan of Treatment Not on filedocumented as of this encounter Visit Diagnoses Not on filedocumented in this encounter
--- OUTSIDE RECORDS SUMMARY | 2019-10-21 18:17 | XMS REPORT | Encounter Summary ---
Author Author [facility] Organization [facility] Address Unknown Phone Unavailable Care Team Providers Care First Assistant Name Role Phone Robby Rajan Мария KILLIAN Unavailable Phong Stephens MD PCP Unavailable Reason for Visit * Reason Comments Other Encounter Details Care Team Description Date Type Department Reggie Ramirez MD NO ADDRESS ON FILE Other 12/25/2012 Telephone [facility] Primar Care [address] [address] Social History Date Tobacco Use [...] Telephone Encounter - Cecily Wilkinson - 12/25/2012 12:05 PM CDT Spoke with Dr Ramirez, was told to call patient & inform her that if she was wanting pain medication/narcotics he would not be prescribing them to her today that patient could take her tramadol & ibuprofen for pain. Pt stated that was not what she was coming in for I said ok, then she said just never mind & hung up. documented in this encounter Plan of Treatment Not on filedocumented as of this encounter Visit Diagnoses Not on filedocumented in this encounter
--- OUTSIDE RECORDS SUMMARY | 2019-10-21 18:17 | XMS REPORT | Encounter Summary ---
Author Author [facility] Organization [facility] Address Unknown Phone Unavailable Care Team Providers Care Grievance Coordinator Name Role Phone Robby Rajan Мария KILLIAN Unavailable Phong Stephens MD PCP Unavailable Reason for Visit * Reason Comments Medication Refill Encounter Details Care Team Description Date Type Department Phong Stephens MD NO ADDRESS ON FILE 03/01/2013 Refill [facility] [place] [address] [place] [address] Social History Date Tobacco Use [...]
--- OUTSIDE RECORDS SUMMARY | 2019-10-21 18:17 | XMS REPORT | Encounter Summary ---
Author Author [facility] Organization [facility] Address Unknown Phone Unavailable Care Team Providers Care Associate Professor Of Theatre Name Role Phone King Robby Мария KILLIAN Unavailable Phong Stephens MD PCP Unavailable Reason for Visit * Reason Comments LOW BACK PAIN after lifting a lamp Encounter Details Care Team Description Date Type Department Ban Pearce, BENEDICT [address] [place] [address] Low back pain radiating to left leg (Sissy jaspal Dx); Sciatica 12/25/2012 Office Visit [facility] Conven ient [facility] [place] [address] [place] [address] Social History Date Tobacco Use [...] Signs Reading Time Taken Comments Vital Sign - - Blood Pressure 116 12/25/2012 1:41 PM CDT Pulse - - Temperature - - Respiratory Rate 99% 12/25/2012 1:41 PM CDT Oxygen Saturation - - Inhaled Oxygen Concentration 138.3 kg (305 lb) 12/25/2012 1:41 PM CDT Weight 160 cm (5' 3") 12/25/2012 1:41 PM CDT Height 54.03 12/25/2012 1:41 PM CDT Body Mass Index documented in this encounter Patient Instructions * Patient Instructions* Ban Pearce, BENEDICT - 12/25/2012 2:03 PM CDT [place] Patient Instructions Back Pain: After Your Visit [...] doctor if you ca n take an aows-[id number]-[id number] medicine. Take short walks several times a [...] Where can you learn more? Go to www.Cherry.Work4 in the Health Information search box. Enter I594 in the search box to learn more about "Back Pain: After Your Visit." Last Revised: September 09, [id number] [employer]. Care instructions adapted under license [employer]. [employer] disclaims any warranty or liability for your use of this informat ion. This information is not intended to represent the ethical and buddhist bel iefs of [place]. This care instruction is for use with your licensed healthcare pr [facility]. If you have questions about a medical condition or this instruction, always ask your healthcare professional. [employer] disclaims any warranty or liability for your use of this information. documented in this encounter Progress Notes * Ban Pearce NP - 12/25/2012 2:15 PM CDT SUBJECTIVE: Ayden Odom is a 42 y.o. female who complains of low back pain for 2 day s, positional with bending or lifting, with radiation down the left leg. Precipi tating factors: Pt picked up a lamp while vaccuming at home. Prior history of back problems: back pain with sciatica issues - She is on Tramadol at home. The re is no numbness in the legs. OBJECTIVE: Pulse 116 | Ht 5' 3" (1.6 m) | Wt 305 lb (138.347 kg) | BMI 54.04 kg/m2 | SpO2 9 9% Patient appears to be in moderate pain, anxious, antalgic gait noted. Lumbosacra l spine area reveals no local tenderness or mass. Painful and reduced LS ROM no ari. Straight leg raise is positive at 30 degrees on left. Negative right SLR. DTR's, motor strength and sensation normal, including heel and toe gait. Perip heral pulses are palpable. ASSESSMENT: lumbar strain with sciatica on left side PLAN: Dr. Ramirez sent in a refill of Tramadol today for pt Flexeril 10 mg tid prn muscle spams - #9 Toradol 60 mg IM Depo medrol 80 mg IM Decadron 4 mg IM For acute pain, rest, intermittent application of heat (do not sleep on heating pad), analgesics and muscle relaxants are recommended. Proper lifting with avoid ance of heavy lifting discussed. Consider Physical Therapy and XRay studies if n ot improving. Follow up with PCP if symptoms worsens. documented in this encounter Plan of Treatment Not on filedocumented as of this encounter Visit Diagnoses Diagnosis Low back pain radiating to left leg - P rimary Lumbago Sciatica documented in this encounter Administered Medications Action Date Dose Rate Site Medication Order MAR Action 12/25/2012 2:08 PM CDT 4 mg Left Upp er Outer Quadrant dexamethasone (DECADRON) injection 4 mg Given 4 mg, IM, ONE TIME ONLY, 1 dose, Sun12/25/12 at 1415, Routine 12/25/2012 2:08 PM CDT 60 mg Right Up per Outer Quadrant ketorolac (TORADOL) injection 60 mg Given 60 mg, IM, ONE TIME ONLY, 1 dose, Sun12/25/12 at 1415, Routine 12/25/2012 2:08 PM CDT 80 mg Left Upp er Outer Quadrant methylPREDNISolone Acetate (DEPO-MEDROL) Given injection 80 mg 80 mg, IM, ONE TIME ONLY, 1 dose, Sun12/25/12 at 1415, Routine documented in this encounter
--- OUTSIDE RECORDS SUMMARY | 2019-10-21 18:17 | XMS REPORT | Encounter Summary ---
Author Author [facility] Organization [facility] Address Unknown Phone Unavailable Care Team Providers Care Tamper Operator Name Role Phone Robby Rajan APRN Unavailable Phong Stephens MD PCP Unavailable Reason for Referral * Consult, Test & Treat (Routine) Referred By Contact Referred To Contact Status Reason Specialty Diagnoses / Procedures [facility] Primary Care [address] [address] Closed Urology Diagnoses Neurogenic bladder Encounter Details Care Team Description Date Type Department Jessica Christian Neurogenic bladder (Primary Dx) 12/27/2012 Orders Only [facility] Primar y Care [address] [address] Social History Date Tobacco Use [...] as of this encounter Plan of Treatment Order Schedule Name Type Priority Associated Diag noses Ordered: 12/27/2012 AMB REFERRAL TO UROLOGY Outpatient Routine Neurog enic bladder Referral documented as of this encounter Visit Diagnoses Diagnosis Neurogenic bladder - Primary Neurogenic bladder, NOS documented in this encounter
--- OUTSIDE RECORDS SUMMARY | 2019-10-21 18:17 | XMS REPORT | Encounter Summary ---
Author Author [facility] Organization [facility] Address Unknown Phone Unavailable Care Team Providers Care Double Needle Operator Lockstitch Name Role Phone Robby Rajan Мария KILLIAN Unavailable Phong Stephens MD PCP Unavailable Reason for Visit * Reason Comments Medication Refill Encounter Details Care Team Description Date Type Department Phong Stephens MD NO ADDRESS ON FILE Type II or unspecified type diabetes flori litus without mention of complication, not stated as uncontrolled (Primary Dx) 01/15/2013 Refill [facility] Primar y Care [address] [phone] Social History Date Tobacco Use Types Packs/Day [...] as of this encounter Visit Diagnoses Diagnosis Type II or unspecified type diabetes me llitus without mention of complication, not stated as uncontrolled - Primary documented in this encounter
--- OUTSIDE RECORDS SUMMARY | 2019-10-21 18:17 | XMS REPORT | Encounter Summary ---
Author Author [facility] Organization [facility] Address Unknown Phone Unavailable Care Team Providers Care Glass Mechanic Name Role Phone King Robby Мария KILLIAN Unavailable Phong Stephens MD PCP Unavailable Encounter Details Care Team Description Date Type Department Phong Stephens MD NO ADDRESS ON FILE 01/21/2013 Abstract [facility] [address] [address] Social History Date Tobacco Use [...]
--- OUTSIDE RECORDS SUMMARY | 2019-10-21 18:17 | XMS REPORT | Encounter Summary ---
Author Author [facility] Organization [facility] Address Unknown Phone Unavailable Care Team Providers Care Rental Sales Representative Name Role Phone Robby Rajan Мария KILLIAN Unavailable Phong Stephens MD PCP Unavailable Reason for Visit * Reason Comments Medication Refill Encounter Details Care Team Description Date Type Department Phong Stephens MD NO ADDRESS ON FILE 12/27/2012 Refill [facility] Primar y Care [address] [address] Social History Date Tobacco Use [...]
--- OUTSIDE RECORDS SUMMARY | 2019-10-21 18:18 | XMS REPORT | Encounter Summary ---
Author Author [facility] Organization [facility] Address Unknown Phone Unavailable Care Team Providers Care Court Monitor Name Role Phone King Robby Мария STOCK SORTER Unavailable Phong Stephens MD PCP Unavailable Reason for Visit * Reason Comments Question hasn't had cath changed for several months, since before Dr Christian left. Encounter Details Care Team Description Date Type Department Jessica Christian Question (hasn't had cath changed for se veral months, since before Dr Christian left.) 09/24/2012 Telephone [facility] Primar y Care [place] [address] [place] [address] Social History Date Tobacco Use [...] * Telephone Encounter - Jessica Christian - 09/24/2012 2:37 PM CDT Referral made per Dr Stephens instructions to Dr Crowder. documented in this encounter Plan of Treatment Not on filedocumented as of this encounter Visit Diagnoses Not on filedocumented in this encounter
--- OUTSIDE RECORDS SUMMARY | 2019-10-21 18:18 | XMS REPORT | Encounter Summary ---
Author Author [facility] Organization [facility] Address Unknown Phone Unavailable Care Team Providers Care Washhouse Hand Name Role Phone Robby Rajan Мария KILLIAN Unavailable Phong Stephens MD PCP Unavailable Reason for Visit * Reason Comments Medication Refill Encounter Details Care Team Description Date Type Department Phong Stephens MD NO ADDRESS ON FILE 11/18/2012 Refill [facility] Primar y Care [address] [address] Social History Date Tobacco Use [...]
--- OUTSIDE RECORDS SUMMARY | 2019-10-21 18:18 | XMS REPORT | Encounter Summary ---
Author Author [facility] Organization [facility] Address Unknown Phone Unavailable Care Team Providers Care Internal Audit Senior Manager Name Role Phone Robby Rajan APRN Unavailable Phong Stephens MD PCP Unavailable Reason for Referral * Eval and Treat (Routine) Referred By Contact Referred To Contact Status Reason [facility] [address] [place] [address] Closed Urology Diagnoses Urinary retention Scheduling Instructions Patient requesting this nursewriter to change her sp catheter. I verbalized to patient I can not change her suprapubic catheter without a physican order and a urologist in attendance as patient has not had sp change per patient "in June". Dr. Stephens out of the office today however will contact tomorrow (09/26) on referral status. Patient inquired if there was another urologist. I verbalized there are urologists at [facility]./sscottrchas Patient called back requesting appt w/ urologist however can not travel to [place]. Appt coordinated w/ Dr. Rasmussen, Urologist, [facility], on , 11/14/12 @ 9am. Patient is to take catheter supplies with her to appt. Patient and caregiver verbalized understanding of appt date time and location./sscottrn Encounter Details Care Team Description Date Type Department Izzy Stewart Urinary retention (Primary Dx) 09/27/2012 Orders Only [facility] [address] [place] [address] Social History Date Tobacco Use Types Packs/Day [...] Name Type Priority Associated Diag noses Ordered: 09/27/2012 AMB REFERRAL TO UROLOGY Outpatient Routine Urinar y retention Referral documented as of this encounter Visit Diagnoses Diagnosis Urinary retention - Primary Retention of urine, unspecified documented in this encounter
--- OUTSIDE RECORDS SUMMARY | 2019-10-21 18:18 | XMS REPORT | Encounter Summary ---
Author Author [facility] Organization [facility] Address Unknown Phone Unavailable Care Team Providers Care Ready To Wear Department Manager Name Role Phone Robby Rajan CONSTANTIN Unavailable Phong Stephens MD PCP Unavailable Reason for Visit * Reason Comments [facility] Encounter Details Care Team Description Date Type Department Phong Stephens MD NO ADDRESS ON FILE Left knee pain (Primary Dx); Contusion of leg, left 10/03/2012 Office Visit [facility] Primar y Care [address] [address] Social History Date Tobacco Use [...] Signs Reading Time Taken Comments Vital Sign 120/80 10/03/2012 11:10 AM CDT Blood Pressure - - Pulse - - Temperature - - Respiratory Rate - - Oxygen Saturation - - Inhaled Oxygen Concentration 129.3 kg (285 lb) 10/03/2012 11:10 AM CDT Weight 157.5 cm (5' 2") 10/03/2012 11:10 AM CDT Height 52.13 10/03/2012 11:10 AM CDT Body Mass Index documented in this encounter Progress Notes * Phong Stephens MD - 10/03/2012 7:04 PM CDT Subjective: Ayden Odom is a 42 y.o. female. Patient Active Problem List Diagnoses Code Unspecified Asthma 493.90 Bipolar Disorder, Unspecified [...] otitis externa 380.10 Exposure to TB V01.1 Current Outpatient Prescriptions on File Prior to Visit Medication Sig Dispense Refill loratadine (CLARITIN) 10 mg Oral tablet Take 1 Tab by mouth daily. 30 Tab 11 Insulin [place], Disposable, (BD INSULIN PEN NEEDLE UF SHORT) 31 X 5/16 " Mi sc Ndle 1 Package 11 fluticasone (FLONASE) 50 mcg/spray Both Nostril SpSn Administer 2 Sprays in each nostril daily. 16 Gram 3 warfarin (COUMADIN) 5 mg Oral tablet 2 tabs daily on days 1 and 2, then 1 ta b on day 3, then repeat cycle 50 Tab 5 albuterol-ipratropium (COMBIVENT) 103-18 mcg/Actuation Inhalation Aero Take 2 Puffs by inhalation every 6 hours as needed for Shortness of Breath. 1 Inhale r 11 ipratropium-albuterol (DUONEB) 0.5 mg-3 mg(2.5 mg base)/3 mL Inhalation Nebu Take 3 mL by inhalation every 6 hours as needed for Shortness of Breath. 90 mL 5 traMADol (ULTRAM) 50 mg Oral tablet Take 2 Tabs by mouth every 6 hours as ne eded for Pain. 60 Tab 2 potassium chloride SR (K-DUR) 10 mEq Oral tablet TAKE 1 TABLET BY MOUTH TWIC E DAILY 180 Tab 2 furosemide (LASIX) 40 mg Oral tablet Take 1 Tab by mouth 2 times daily. 180 Tab 3 gabapentin (NEURONTIN) 600 mg Oral tablet Take 1 Tab by mouth 4 times daily. 120 Tab 11 atorvastatin (LIPITOR) 20 mg Oral tablet Take 1 Tab by mouth daily at bedtim e. 90 Tab 1 ibuprofen (MOTRIN) 800 mg Oral tablet Take 1 Tab by mouth every 8 hours as n eeded for Pain, Mild. 100 Tab 2 insulin glargine (LANTUS) 100 unit/mL subCUT 35 units in AM & 40 units in PM 3 mL 11 SUMAtriptan (IMITREX) 100 mg Oral tablet [...] Take 2 L/min by inhalation daily at [facility]. ACCU-CHEK ACTIVE CARE Misc Kit by See Admin Instructions route. Before meals , at bedtime, and as needed Current Facility-Administered Medications on File Prior to Visit Medication Dose Route Frequency Provider Last Rate Last Dose ketorolac (TORADOL) injection 30 mg 30 mg IM ONCE Saturnino Canales MD 30 mg at 10/02/122117 fentaNYL PF (SUBLIMAZE) 50 mcg/mL injection 100 mcg 100 mcg IM ONCE Saturnino Canales MD 100 mcg at 10/02/122153 promethazine (PHENERGAN) injection 25 mg 25 mg IM ONCE Saturnino Canales MD 25 mg at 10/02/122153 HPI: Ms. Odom complains of the following (by systems): seen in ER last night for injury to L distal thigh sustained when after pushing truck to jump start she got her R side back in truck but L side was out. she is unsure but looks like may have been struck bu bouncing door. See ER note Review of Systems: ROS Denies all of the following: Headache Dizziness Chest pain Shortness of breath Bowel changes Bladder changes Pain in muscle or joints Exam/Objective: Normal Exam for Routine Visits: \\Blood pressure 120/80, height 5' 2" (1.575 m), weight 285 lb (129.275 kg). General appearance: chronic and mod acute ill appearing, active, alert, cooperat marisela, social, normally nourished, and in no acute distress Lungs: breath sounds equal, clear to auscultation bilaterally, no retractions, n o stridor, normal respiratory effort Heart: regular rate and rhythm, S1, S2 normal, no murmur, click, rub, gallop, or abnormal sounds. Abdomen: soft, non-tender. Bowel sounds normal. No masses, no organomegaly. Ac tive bowel sounds. Extremities: symmetrical Edematous. Large bruise distal L lat thigh just proxim al to knee. Knee other rao neg. Has 4 small abrasion at base of each toe l fo ot compatible with having drug it briefly on ground. No abrasions to leg or thi gh. Assessment and Plan: ASSESSMENT: Encounter Diagnoses Name Primary? Left knee pain Yes Contusion of leg, left PLAN: Orders Placed This Encounter oxyCODONE-acetaminophen (PERCOCET) 5-325 mg Oral tablet crutch walking advil wmp Appropriate medications prescribed (see detailed AVS). Appropriate patient instructions provided (see detailed AVS). Follow-up as I have indicated. Medications and options explained to include common side effects. Understanding of medications, course, diagnosis, and expectations were expressed by patient/g uardian. documented in this encounter Plan of Treatment Not on filedocumented as of this encounter Visit Diagnoses Diagnosis Left knee pain - Primary Pain in joint, lower leg Contusion of leg, left Contusion of unspecified part of lower limb documented in this encounter
--- OUTSIDE RECORDS SUMMARY | 2019-10-21 18:18 | XMS REPORT | Encounter Summary ---
Author Author [facility] Organization [facility] Address Unknown Phone Unavailable Care Team Providers Care Field Services Analyst Name Role Phone Robby Rajan APRN Unavailable Phong Stephens MD PCP Unavailable Reason for Visit * Eval and Treat (Routine) Referred By Contact Referred To Contact Status Reason Specialty Diagnoses / Procedures Vincenzo Rodríguez MD [address] [place] [address] Closed Occupational Diagnoses Therapy Tendonitis of wrist, right Carpal tunnel syndrome Cubital tunnel syndrome on right Ulnar tunnel syndrome Encounter Details Care Team Description Date Type Department Vincenzo Rodríguez MD [address] [place] [address] Heydi Lemus, Occupational Therapist Yue, Heydi Dukes, Occupational Therapist Left without seen 11/07/2012 [facility] ort Encounter [facility] [address] [place] [address] Social History Date Tobacco Use [...] ACCU-CHEK ACTIVE CARE by See Admin 0 [facility] Kit Instructions route. Before meals, at bedtime, and as needed 09/23/2012 03/10/2013 loratadine (CLARITIN) 10 Take 1 Tab by 30 Tab 11 mg Oral mouth daily. tabletIndications: Acute URI 09/06/2012 01/15/2013 Insulin [place], 1 Package 11 Disposable, (BD INSULIN PEN NEEDLE UF SHORT) 31 X 5/16 " [facility] NdleIndications: Type II or unspecified type diabetes [...] mention of complication, not stated as uncontrolled 04/22/2012 11/18/2012 atorvastatin (LIPITOR) 20 Take 1 Tab by 90 Tab 1 mg Oral tablet mouth daily at bedtime. 04/10/2012 01/09/2013 ibuprofen (MOTRIN) 800 mg Take [...]
--- OUTSIDE RECORDS SUMMARY | 2019-10-21 18:18 | XMS REPORT | Encounter Summary ---
Author Author [facility] Organization [facility] Address Unknown Phone Unavailable Care Team Providers Care Deck Specialist Name Role Phone Robby Rajan APRN Unavailable Phong Stephens MD PCP Unavailable Reason for Visit * Reason Comments Urinary Retention Encounter Details Care Team Description Date Type Department Izzy Stewart Urinary Retention 10/11/2012 Telephone [facility] Primar [address] [address] Social History Date Tobacco Use [...] * Telephone Encounter - Jessica Christian - 10/11/2012 3:29 PM CDT I have spoken to Ayden and we are getting her set up with Dr Sotelo in [facility]. Dr Rasmussen was scheduled to see her 11/14/12 but that will be his last day in [place] and doesn't think it rao to start a new patient for one visit. In process of getting records from [facility]. Kenia MCCLURE * Telephone Encounter - Izzy Stewart - 10/11/2012 11:15 AM CDT No answer when attemting to contact patient. Voicemail is not set up. Patient requesting urology catheter supplies as she stated to clinic receptionist that her catheter is leaking. Left vm for Dr. Stephens (PCP) re: above. Patient has ap pt w/ Dr Rasmussen, Urologist, @ [facility] in mid November. Patient's epic chart shows sp catheter was changed 10/07/12 when she presented to [facility] emergency room. /sscottrn documented in this encounter Plan of Treatment Not on filedocumented as of this encounter Visit Diagnoses Not on filedocumented in this encounter
--- OUTSIDE RECORDS SUMMARY | 2019-10-21 18:18 | XMS REPORT | Encounter Summary ---
Author Author [facility] Organization [facility] Address Unknown Phone Unavailable Care Team Providers Care Clinical Research Manager Name Role Phone Robby Rajan CONSTANTIN Unavailable Phong Stephens MD PCP Unavailable Reason for Visit * Reason Comments Chest Pain Pt states that her chest pa in started earlier this AM. She took one nitro then and the pain went away. Pain start ed again about one hour prior to arrival, she took a nitro then and the pain went away now the pain is returning. * Auth/Cert Referred By Contact Referred To Contact Status Reason Specialty Diagnoses / Procedures [facility] Med Surg [address] [place] [address] Closed Inpatient Encounter Details Care Team Description Date Type Department Phong Stephens MD NO ADDRESS ON FILE Patt Hauser MD NO ADDRESS ON FILE 11/24/2012 Emergency [facility] Medical Surgical 11/25/2012 [address] [place] [address] Social History Date Tobacco Use [...] Signs Reading Time Taken Comments Vital Sign 112/64 11/25/2012 4:20 PM CDT Blood Pressure 80 11/25/2012 4:20 PM CDT Pulse 36.7 C (98.1 F) 11/25/2012 4:20 PM CDT Temperature 16 11/25/2012 4:20 PM CDT Respiratory Rate 99% 11/25/2012 4:20 PM CDT Oxygen Saturation - - Inhaled Oxygen Concentration 137 kg (302 lb) 11/25/2012 1:19 AM CDT Weight 158.8 cm (5' 2.5") 11/25/2012 1:19 AM CDT Height 54.36 11/25/2012 1:19 AM CDT Body Mass Index documented in this encounter Discharge Instructions * Instructions* Cesilia Holland RN - 11/25/2012 DISCHARGE DESTINATION: home FOLLOW-UP Follow up: Call your physician to reschedule your stress test PRESCRIPTIONS: Prescriptions given? No SIGNS AND SYMPTOMS TO REPORT Contact your health care provider if you experience any of the following symptom s: Increased chest pain, shortness of breath, dizziness, temperature of 101 or greater. ACTIVITY Your activity level is: {DISCHARGE ACTIVITY LEVEL:[id number]::"no smoking"}. I f you smoke you are advised to quit. Ask your health care provider for advice i f you need assistance to stop smoking. Avoid second-hand smoke exposure and do not let people smoke in your home. DIET Your diet is: As per home MEDICATIONS Reminders: Please discard any old medication [...] times in the event of emergency situations ................................................................................ ...................................................... If you have a history [...] receiving two follow-up calls from our heart critical access hospital resource center to help you manage your congestive heart failure. THANK YOU FOR CHOOSING [facility] Our goal is to provide you with the highest level of care and service. Your fe edback about the positive experience and opportunities for us to better serve yo u is important to us. Patients will be randomly selected for either a phone or e-mail survey. * Phone surveys will be conducted by a non-[facility] employed attendant to patients of [facility] inpatient unit, surgery, emergency department, home health or convenient care. * E-mail surveys will be delivered to [facility] patients and outpatients. ................................................................................ ...................................................... IMPORTANT EMERGENCY PHONE NUMBERS Poison Control [place] Crisis Hotline- Domestic Violence Suicide Prevention Lifeline documented in this encounter Medications at Time of Discharge Start Date End Date Medication Sig Dispensed Refills 10/05/2007 Oxygen-Air Delivery Take 2 L/min 0 Systems Misc Leisa by inhalation daily at bedtime. 10/05/2007 ACCU-CHEK ACTIVE CARE by See Admin 0 Misc Kit Instructions route. Before meals, at bedtime, and as needed 11/18/2012 06/17/2013 atorvastatin (LIPITOR) 20 TAKE 1 TABLET 90 Tab 1 mg Oral tablet BY MOUTH DAILY AT BEDTIME 09/23/2012 03/10/2013 loratadine (CLARITIN) 10 Take 1 Tab by 30 Tab 11 mg Oral mouth daily. tabletIndications: Acute URI 09/06/2012 01/15/2013 Insulin Elvaston, 1 Package 11 Disposable, (BD INSULIN PEN [...] inhalation daily. documented as of this encounter Progress Notes * Kevan Butler RN - 11/25/2012 8:45 PM CDT Patient dismissed per wheelchair to the [place] [facility] accompanied by significant other and this nurse. * Cesilia Holland RN - 11/25/2012 8:05 PM CDT Went with primary RN to witness patient signature on Release from responsibility discharge form. Pt upset that physician will not order more pain medication at this time. Pt. Asking about stress test. This RN spoke with radiology and was informed that pt. Would have to reschedule stress test if she left. Pt. Inform ed of need to reschedule stress test and ask if she wanted to stay. Pt states s he, "No, I can be in pain at home." Using expletives directed at her physician. Pharmacist application development project manager notified and came in to retrieve patients medications. All medications sent home with patient and her . * Kevan Butler RN - 11/25/2012 7:50 PM CDT 1950 Responding to Call Light. Pt states 'I want to sign the papers and leave t he hospital now." Dr Durbin notified. * Lilliam Pringle RN - 11/25/2012 6:20 PM CDT Pt still complaining of chest pain a 6 out of 1-10 scale. Tried using a ice pac k to the area with no relief. Tried using a heating pad to the area with no rel ief. Paged Dr. Durbin at this time. Called back with new orders of morphine 2 mg IV once and repeat cardiac enzyme series. Will continue to monitor patient. * Lilliam Pringle RN - 11/25/2012 2:14 PM CDT Reassessed pt at this time and pt stated her pain was now a 7 on 1-10 and is not getting any better this junior technical writer gave pt a 3rd nitro at this time and waiting to hear back from dr. Stephens at this time. BP dropped after 3rd nitro to 90/55 an d hr 70's. Gave pt 1 mg ativan at this time. Dr. Stephens nurse called back at this time wi th orders of toradol 30 mg iv times 1. Will continue to monitor patient. * Lilliam Pringle RN - 11/25/2012 2:08 PM CDT Reassessed pt at this time and pt stated her pain was still 6 out of 1-10 and th is junior technical writer gave pt her 2nd nitro at this time. Vitals signs still stable and will reassess in 5 minutes. * Lilliam Pringle RN - 11/25/2012 2:00 PM CDT Pt rang her call light and this junior technical writer answered and pt complaining of chest pain that starts under her breast and wraps around to the front of her chest rates t he pain a 6 out of 1-10. Gave a nitro at this time and vitals signs were stable . Will reassess in 5 minutes of how pain is doing. * Lilliam Pringle RN - 11/25/2012 9:[address] Bautista at this time that he had been consulted on this patient. Will jason it a call back and continue to monitor patient. * Kevan Butler RN - 11/25/2012 12:55 AM CDT Admitted per cart from ER to [facility]. Placed on Telemetry with continuous SpO2 mo nitor. Indwelling dickey catheter to leg bag present at admission. Changed to d ependant drainage bag. Fell asleep on multiple occassions during admission inte rview. Home Rxs brought to hospital by significant other. Drugs secured. documented in this encounter H&P Notes * Phong Stephens MD - 11/25/2012 11:29 AM CDT [address] [place] [address] Patient Name: JERALD VELAZQUEZ CSN: [id number] : 1970 Provider: Phong Stephens MD Admitted: 11/24/2012 HISTORY AND PHYSICAL CHIEF COMPLAINT: "My chest is hurting." HISTORY OF PRESENT ILLNESS: This is a 42-year-old woman who was presented to [facility] emergency room complaining of left lower chest pain. It has been intermittent for a couple of days and then on the evening of admission, it has gotten more i ntense, more persistent. Some question whether it was relieved by nitroglycerin at home. It was told me this morning that it was not relieved with nitroglycer in. On presentation there however, pain was in left lower chest, heavy pressure , some possible associated shortness of breath. No hemoptysis. There was compl aint of radiation in the left shoulder and left arm. 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 Furthermore history of drug abuse. Says that she has done methamphetamines recently although has none for a week. She was a dmitted through the emergency room to an observation bed to rule out acute ische lisa injury and for ongoing care. PAST MEDICAL HISTORY: She has history of pulmonary embolus, gastroesophageal re flux, bipolar disease, seizure, previous acute UT in 2010, history of congestive heart failure. Surgically, see her list on the chart. SOCIAL SITUATION: She has complex social situation and she and her are on again, off again. She has several enabling friends. She obviously is in a c ulture that promotes her to do drug use. She continues to smoke on a daily basi s. Denies use of alcohol. MEDICATIONS: Prior to admission are Lipitor, Macrodantin, Percocet, Claritin, i nsulin, Flonase, Coumadin which of unsure if she had been taking or not. She is on Combivent, DuoNeb, Ultram, K-Dur, Lasix, Neurontin, Motrin, Lantus, Restoril, Trileptal, Spiriva, Xopenex, oxygen at home. She has Imitrex. She has Topamax. ALLERGIES: REPORTED TO BE ALOE VERA, DOXYCYCLINE, TAPE, XANAX, ZOFRAN. REVIEW OF SYSTEMS: She denies specific headache. No seizure activity. The rosi rtness of breath is chronic and some associated with the chest pain. The chest pain is described earlier, which is a pressure tightness, sharpness in the left lower chest along the margin of the left lower ribs and beneath her breast. ABD OMEN: She denied acute abdominal complaints. No nausea, vomiting, or diarrhea. : She has a long history of indwelling suprapubic catheter. MUSCULOSKELETAL: No acute deficits that she defines. NEUROLOGICAL: No recent seizure activit ies. She does relapse with her methamphetamine use. She sees counselors at [facility]. PHYSICAL EXAMINATION: VITAL SIGNS: Afebrile. Pulse 79, respirations 14, blood pressure 118/72. GENERAL: The patient is alert this morning, not in marked distress. Has chroni c disability. HEENT: Symmetrical. CHEST: Bilaterally clear to auscultation, but diminished. CARDIOVASCULAR: Regular. No appreciable rubs, murmurs, or gallops. CHEST WALL: There is some tenderness to palpation along the lower costochondral margin, somewhat in the area that she describes the pain being and partially re produces the pain. ABDOMEN: Heavy. The bowel sounds are present. No tenderness, rebound, guardin g or masses. AND RECTAL: Not done. EXTREMITIES: Symmetrical with just trace of edema. Some tenderness to palpatio n about her calves. No palpable cords. NEUROLOGICAL: Alert, oriented, coopera tive. IMPRESSION: Chest pain in a lady with history of ischemic cardiac disease. PLAN: She is admitted to observation bed for evaluation of this problem. Dictated by: Phong Stephesn MD/MEDQ D: [id number] V: [id number] * Phong Stephens MD - 11/25/2012 8:56 AM CDT This history note has been dictated. * Phong Stephens MD - 11/25/2012 8:55 AM CDT This history note has been dictated. documented in this encounter Procedure Notes * Sukhi Fontana MD - 11/25/2012 10:05 AM CDT Associated Order(s): ECG REPORT [address] [place], [place] [address] Patient Name: JERALD VELAZQUEZ CSN: [id number] : 1970 Provider: Sukhi Whipple M.D. Admitted: 11/24/2012 ELECTROCARDIOGRAM DATE OF SERVICE: 11/25/2012 11/25/2012 at 0538. The rhythm is regular, sinus in origin with a rate of 82 be ats per minute. Prominent Q waves are noted in limb lead III with smaller Q wav es in lead aVF. Compared with previous day's tracing, Q waves are smaller in li mb lead III previously. DIAGNOSIS: 1) Sinus rhythm, rate 82 beats per minute. 2) Borderline inferior limb lead Q waves, inferior wall myocardial infarct of u ndetermined age cannot be completely ruled out. Dictated by: Sukhi Whipple M.D./MEDQ D: [id number] V: [id number] cc: MD Patt Martínez M.D. * Sukhi Fontana MD - 11/25/2012 10:05 AM CDT Associated Order(s): ECG REPORT [address] [place] [address] Patient Name: JERALD VELAZQUEZ CSN: [id number] : 1970 Provider: Sukhi Whipple M.D. Admitted: 11/24/2012 ELECTROCARDIOGRAM DATE OF SERVICE: 11/24/2012 11/24/2012 at 2149. The rhythm is regular, sinus in origin with a rate of 87 be ats per minute. T waves are inverted in aVL. No old tracings are available for comparison. DIAGNOSIS: 1) Sinus rhythm, rate 87 beats per minute. 2) [facility] T wave changes. Dictated by: Sukhi Whipple M.D./MEDQ D: [id number] V: [id number] cc: Phong Stephens MD documented in this encounter Consult Notes * Lavell Bautista MD - 11/25/2012 1:27 PM CDT [place] [address] Patient Name: JERALD VELAZQUEZ CSN: [id number] : 1970 Provider: Lavell Bautista M.D. Admitted: 11/24/2012 CONSULTATION REPORT Date of Consultation: 11/25/2012 CHIEF COMPLAINT: Chest pain. HISTORY OF PRESENT ILLNESS: The patient is a 42-year-old white female, came in with left-sided chest pain underneath her left breast radiating upward, was walk ing when it came on, little dyspneic with it, maybe a little diaphoretic as cristy flores. Report this as a solitary episode, so she has been having problems with this lately, does admit that she still does use meth intermittently as well as a big risk factor for her. Medical history includes known history of listed acute UT in 2009, but despite t hat, I could never see a prior cardiac cath. So, I am not sure how accurate deep t is. Again, also listed as having heart failure, but no clinical signs of that , known prior history of what looks to be DVT and a pulmonary embolus as well. Surgical history listed in the past includes her prior cholecystectomy, tubal li gation, subsequent hysterectomy, appendectomy, and hemorrhoidectomy as well. FAMILY HISTORY: Heart disease, both mom and dad and also a grandparent. SOCIAL HISTORY: Again, still smokes cigarettes and has for a long time the inte rmittent meth use. She says last time was in late September 2012. ALLERGIES: JUST LISTED WHICH INCLUDE ALOE VERA, DOXYCYCLINE, TAPE, XANAX AND ZOFRAN. MEDICATIONS: Prior to admit, Lipitor 20 daily, Macrobid 4 times a day as listed that back in early October, Claritin once a day, Coumadin as per her schedule, as needed Combivent or DuoNeb, p.r.n. Ultram, K-Dur 10 mEq b.i.d., Lasix 40 b.i.d., Neurontin 600 q.i.d., Motrin p.r.n., Lantus as scheduled 35 in the a.m., 40 in p.m., Restoril at night, Trileptal 300 mg nightly, and an O2 apparently nightly as well as Topamax 100 b.i.d. Again no other positive review of systems. She de nies any recent recently increased orthopnea, PND or leg edema as well. PHYSICAL EXAMINATION: CURRENT VITAL SIGNS: Show a temp of 98, pulse 80, respirations 16, pressure 118 /72, sats listed at 94 to 96 on room air. For some reason, she is on 2-3 L. We ight probably not accurate since it was 280 on admit yesterday and says 302, thi s morning which I think is inaccurate. GENERAL: She is awake, alert, and oriented. HEENT: Unremarkable. NECK: Supple. HEART: Regular rhythm. No audible murmurs. Currently, no chest wall tendernes s. LUNGS: Clear. ABDOMEN: Soft. Good bowel sounds. No masses. EXTREMITIES: No edema. NEUROLOGICAL: Intact. SKIN: No skin rashes are noted as well. EKG reviewed, I do not see any acute changes at this point in time on that. CT chest was done, I presume to rule out PE, but we do not have results back on deep t as well. Last time, she had an echo was November 2009, and at least at that point , normal function and no signs of diastolic dysfunction as well too. She cannot remember last time she had a stress test. I do not see one listed here recent ly as well. Notably white count 8.7, H and H 13.2 and 38.7, platelets 194. Myoglobins and t roponins all negative through full 12-hour series. CMP is unremarkable. INR 11 7 and subtherapeutic. D-dimer 219, so again less likely to be anything embolic at this time as well. Chest x-ray officially reviewed at this point is negative as well. ASSESSMENT AND PLAN: Atypical chest pain, questionable prior history of ischemi c disease; although, again no prior catheterization, so difficult to say how the y told her she had acute myocardial infarction in 2009. Risk factors are high r egardless, she is a smoker, intermittent methamphetamine user, overweight and ce rtainly obviously a diabetic, chcf. Her last A1c that was checked was in J denisse of last year at least and that was normal at that time. So, do recommend ap propriate Lexiscan Myoview for risk stratification, discussed the risks, benefit s, and limitations of the study with the patient. She understands and wishes to proceed. We will set that up for tomorrow. We will leave that to Dr. Stephens' discretion inpatient versus outpatient whether or not he lets her go home prior to that. The patient is aware of her risks and her modifiable risk factors inc luding working toward weight reduction, avoiding meth use and eliminating tobacc o use as well. Dictated by: Lavell Bautista M.D./MEDQ D: [id number] V: [id number] documented in this encounter ED Notes * Emy Bran, PAY STATION ATTENDANT - 11/24/2012 10:17 PM CDT HISTORY OF PRESENT ILLNESS Jerald Velazquez. Patient is a 42 y.o. female presenting with chest pain. The history is provided by the patient. Chest Pain The chest pain began 6 - 12 hours ago. Chest pain occurs intermittently. The mercedes st pain is waxing and waning. The pain is associated with exertion. The quality of the pain is described as crushing. The pain radiates to the left shoulder and left arm. Primary symptoms include shortness of breath. Pertinent negatives for primary symptoms include no fever, no syncope, no cough, no wheezing, no palpit ations, no abdominal pain, no nausea, no vomiting and no dizziness. Pertinent negatives for associated symptoms include no diaphoresis, no lower ext remity edema and no orthopnea. She tried nitroglycerin for the symptoms. Risk fa ctor(s) for DVT/PE include smoking. Risk factor(s) for ischemic heart disease i nclude CAD, diabetes, hypertension, obesity, sedentary lifestyle and smoking. T he initial location of pain was left inframammary. REVIEW OF SYSTEMS Review of Systems Constitutional: Negative for fever and diaphoresis. Respiratory: Positive for shortness of breath. Negative for cough and wheezing. Cardiovascular: Positive for chest pain. Negative for palpitations, orthopnea an d syncope. Gastrointestinal: Negative for nausea, vomiting and abdominal pain. Neurological: Negative for dizziness. PAST MEDICAL HISTORY REVIEWED Patient has a [...] mercedes; Bipolar disorder, unspecified; Seizure disorder; Acute UT (03/2010); and CH F (congestive heart failure). [...] s yndrome; Cubital tunnel syndrome on right; and Ulnar tunnel syndrome on her prob celia list. ALLERGIES Aloe vera; Doxycycline; Tape; Xanax; [...] this Encounter PHYSICAL EXAM INITIAL VS BP: 125/77 mmHg, Pulse: 88 , Resp: 18 , Temp: 97.7 F (36.5 C), Temp src: Ora l, SpO2: 94 % Physical Exam Constitutional: She is oriented to [...] breath sounds normal. No respiratory distress . She exhibits no tenderness. Abdominal: Soft. Bowel sounds are normal. There [...] orders placed during the hospital encounter of 11/24/12 (from the [facility] 24 hour(s)) BRAIN NATRIURETIC PEPTIDE, BNP OR PROBNP Result Value Range BRAIN NATRIURETIC PEPTIDE 55 0 - 125 pg/ml CBC WITH DIFFERENTIAL Result Value Range WBC 8.73 3.0 - 10.4 x10E3 RBC 4.31 3.77 - 4.97 x10E6 HEMOGLOBIN 13.2 11.9 - 15.0 g/dL HEMATOCRIT 38.7 34.4 - 43.6 % MCV 89.7 79 - 100 fL MCH 30.6 28 - 34 pg MCHC 34.1 31 - 35 g/dL RDW 13.3 11.5 - 15.1 % PLATELETS 194 148 - 408 x10E3 MPV 8.6 7.4 - 10.6 fL NEUTROPHILS 54.2 43 - 73 % LYMPHOCYTES 35.8 19 - 47 % MONOCYTES 5.7 3 - 9 % EOSINOPHILS 3.8 0 - 6 % BASOPHILS 0.5 0 - 1.2 % NEUTROPHIL ABSOLUTE 4.73 1.3 - 7.6 x10E3 LYMPHOCYTE ABSOLUTE 3.12 0.6 - 4.9 x10E3 MONOCYTE ABSOLUTE 0.50 0.1 - 0.9 x10E3 EOSINOPHIL ABSOLUTE 0.33 (*) 0.0 - 0.2 x10E3 BASOPHILS ABSOLUTE 0.04 0 - 0.1 x10E3 PROTIME-INR Result Value Range PROTIME 11.8 (*) 10.1 - 11.3 Sec INR 1.11 (*) 2.0 - 3.0 COMPREHENSIVE METABOLIC PANEL Result Value Range GLUCOSE 126 (*) 70 - 100 mg/dl BUN 22.0 (*) 7 - 20 mg/dl CREATININE 0.75 0.51 - 0.95 mg/dl GFR 91 >60 ml/min SODIUM 137 134 - 145 mmol/L POTASSIUM 3.7 3.3 - 4.8 mmol/L CHLORIDE 105 98 - 107 mmol/L CO2 28.7 22 - 31 mmol/L ANION GAP 3 (*) 7 - 16 CALCIUM 7.9 (*) 8.5 - 10.1 mg/dl ALBUMIN 3.4 3.4 - 5.0 g/dl TOTAL PROTEIN 6.7 6.4 - 8.2 g/dl BILIRUBIN TOTAL 0.2 <1.1 mg/dl ALKALINE PHOSPHATASE 138 (*) 50 - 136 IU/L AST 15 10 - 40 IU/L ALT 48 25 - 70 IU/L MYOGLOBIN Result Value Range MYOGLOBIN, PLASMA 31 9 - 83 ng/ml TROPONIN Result Value Range TROPONIN I LESS THAN 0.04 0 - 0.4 ng/ml RADIOLOGY: XR CHEST PA AND LATERAL (Results Pending) nad, pending radiologist review EKG: NSR, no acute findings PROCEDURES Procedures MEDICAL DECISION MAKING AND PLAN OF CARE Pt with good relief of pain at home with ntg, no change here in ER with ntg or m orphine. Improved in ER with ativan. Pt with HR history, pt states she has had a stress test in past, however not at this facility, unable to find this or any cardiolog y Eval in [facility]. Will admit pt observation, r/o isoenzymes, pt may need ad ditional cardiology evaluation if symptoms continue. With INR not therapeutic a nd hx of PE will add d dimer, and give 1 time lovenox 1mg/kg here in ER pending additional lab results and evaluation. REEVALUATION Improved post ativan CASE DISCUSSED lesvia Lundberg for MPG Dr Stephens Medications Administered During the ED Stay from 11/24/2012 2138 to 11/25/2012 0 010 Date/Time Order Dose Route Action 11/24/2012 2204 sodium chloride 0.9 % flush injection 3 mL 3 mL IV Given 11/24/2012 220 aspirin (CARRIE CHEWABLE) chew tablet 324 mg 324 mg Oral Given 11/24/2012 2219 nitroglycerin (NITROSTAT) tablet 0.4 mg 0.4 mg Sublingual Given 11/24/2012 221 nitroglycerin (NITROSTAT) tablet 0.4 mg 0.4 mg Sublingual Given 11/24/2012 220 nitroglycerin (NITROSTAT) tablet 0.4 mg 0.4 mg Sublingual Given 11/24/2012 2244 morphine 5 mg/mL injection 2 mg 2 mg IV Given 11/24/2012 2235 morphine 5 mg/mL injection 2 mg 2 mg IV Given 11/24/2012 2225 morphine 5 mg/mL injection 2 mg 2 mg IV Given 11/24/2012 2217 morphine 5 mg/mL injection 2 mg 2 mg IV Given 11/24/2012 2204 morphine 5 mg/mL injection 2 mg 2 mg IV Given 11/24/2012 2257 LORazepam (ATIVAN) 2 mg/mL injection 1 mg 1 mg IV Given 11/24/2012 2257 ketorolac (TORADOL) injection 30 mg 30 mg IV Given . New Prescriptions for this Encounter LAST VITALS BP 120/75 | Pulse 88 | Temp(Src) 97.7 F (36.5 C) (Oral) | Resp 15 | Ht 5' 2" (1.575 m) | Wt 127.007 kg | BMI 51.2 kg/m2 | SpO2 93% CLINICAL IMPRESSION Final diagnoses: Chest pain Coding DISPOSITION, EDUCATION AND MEDICATION RECONCILIATION Medications reconciled. See after visit summary for patient education on discha rged patients. documented in this encounter Miscellaneous Notes * Care Plan - Deandra Chavez RN - 11/25/2012 8:01 AM CDT Problem: General Plan of Care (Adult, Obstetrics) Goal: Identify Discharge Needs Patients discharge needs are identified. Outcome: Progressing Pt admitted from the ER to Observation for chest pain. Current on Pneumovax. documented in this encounter Plan of Treatment Date/Time Name Type Priority Associated Diag noses 11/25/2012 6:25 AM CDT POC GLUCOSE Point of Care Routine Testing documented as of this encounter Procedures Comments Procedure Name Priority Date/Time Associated Diag nosis ECG REPORT 11/26/2012 2:09 PM CDT ECG REPORT 11/26/2012 2:09 PM CDT TELEMETRY REPORT 11/26/2012 2:03 PM CDT CARDIAC ENZYMES Routine 11/26/2012 6:20 AM CDT TROPONIN Routine 11/26/2012 6:20 AM CDT CARDIAC INTERPRETATION (6 Routine 11/26/2012 HR) 12:20 AM CDT TROPONIN Routine 11/26/2012 12:20 AM CDT CARDIAC INTERPRETATION (3 Routine 11/25/2012 HR) 9:20 PM CDT TROPONIN Routine 11/25/2012 9:20 PM CDT MYOGLOBIN Routine 11/25/2012 9:20 PM CDT TROPONIN Routine 11/25/2012 6:30 PM CDT MYOGLOBIN Routine 11/25/2012 6:30 PM CDT POC GLUCOSE Routine 11/25/2012 4:41 PM CDT POC GLUCOSE Routine 11/25/2012 11:[address] CHEST W CONTRAST Routine 11/25/2012 10:49 AM CDT CARDIAC ENZYMES Stat 11/25/2012 9:55 AM CDT TROPONIN Stat 11/25/2012 9:55 AM CDT POC GLUCOSE Routine 11/25/2012 6:24 AM CDT CARDIAC INTERPRETATION (6 Stat 11/25/2012 HR) 4:00 AM CDT PROTIME-INR Routine 11/25/2012 4:00 AM CDT TROPONIN Stat 11/25/2012 4:00 AM CDT CARDIAC INTERPRETATION (3 Stat 11/25/2012 HR) 1:10 AM CDT TROPONIN Stat 11/25/2012 1:10 AM CDT MYOGLOBIN Stat 11/25/2012 1:10 AM CDT XR CHEST PA AND LATERAL 2 Stat 11/24/2012 VW 11:46 PM CDT CBC WITH DIFFERENTIAL Stat 11/24/2012 9:58 PM CDT PROTIME-INR Stat 11/24/2012 9:58 PM CDT D-DIMER Stat 11/24/2012 9:58 PM CDT TROPONIN Stat 11/24/2012 9:58 PM CDT BRAIN NATRIURETIC Stat 11/24/2012 PEPTIDE, BNP OR PROBNP 9:58 PM CDT MYOGLOBIN Stat 11/24/2012 9:58 PM CDT COMPREHENSIVE METABOLIC Stat 11/24/2012 PANEL 9:58 PM CDT OXYGEN, NASAL CANNULA Stat 11/24/2012 9:51 PM CDT documented in this encounter Results * ECG REPORT (11/26/2012 2:09 PM CDT) Narrative Performed At This result has an attachment that is n ot available. Transcriptions Sukhi Whipple MD - 11/25/2012 10:05 AM CDT [address] [place] [address] Patient Name: JERALD VELAZQUEZ CSN: [id number] : 1970 Provider: Sukhi Whipple M.D. Admitted: 11/24/2012 ELECTROCARDIOGRAM DATE OF SERVICE: 11/25/2012 11/25/2012 at 0538. The rhythm is regul ar, sinus in origin with a rate of 82 beats per minute. Prominent Q waves are noted in limb lead III with smaller Q waves in lead aVF. Compared with previous day's tracing, Q waves are smaller in limb lead III previously. DIAGNOSIS: 1) Sinus rhythm, rate 82 beats per minute. 2) Borderline inferior limb lead Q waves, inferior wall myocardial infarct of undetermined age cannot be completely ruled out. Dictated by: Sukhi Whipple M.D./MEDQ D: [id number] V: [id number] cc: MD Patt Martínez M.D. * ECG REPORT (11/26/2012 2:09 PM CDT) Narrative Performed At This result has an attachment that is n ot available. Transcriptions Sukhi Whipple MD - 11/25/2012 10:05 AM CDT [address] [place] [address] Patient Name: JERALD VELAZQUEZ CSN: [id number] : 1970 Provider: Sukhi Whipple M.D. Admitted: 11/24/2012 ELECTROCARDIOGRAM DATE OF SERVICE: 11/24/2012 11/24/2012 at 2149. The rhythm is regul ar, sinus in origin with a rate of 87 beats per minute. T waves are inverted in aVL. No old tracings are available for comparison. DIAGNOSIS: 1) Sinus rhythm, rate 87 beats per minute. 2) Nonspecific T wave changes. Dictated by: Sukhi Whipple M.D./MEDQ D: [id number] V: [id number] cc: Phong Stephens MD * TELEMETRY REPORT (11/26/2012 2:03 PM CDT) Narrative Performed At This result has an attachment that is n ot available. * TROPONIN (11/26/2012 6:20 AM CDT) TROPONIN I Test not performedComment: 0 - 0.4 ng/ml [facility] ACCT#[id number], ,,,, SERVICES - ALYSA STEWART Specimen Narrative Performed At CARDIAC TROP-12HR TROP-12 HR from 623:[id number]. INT ERFACE SYSTEM CARDIAC Final: FINAL from 623:[id number] . Performing Organization Address [facility] one Number INTERFACE SYSTEM [facility] LABORATORY SERVICES CLIA# [id number] [place] STEW[place] [id number] [place] [address] INTERFACE SYSTEM Refer to clinic/hospital department * CARDIAC ENZYMES (11/26/2012 6:20 AM CDT) INTERPRETATION See below. [facility] Comment: LABORATORY INTERPRETATION - 11/26/12 0736 [facility] Normal initial cardiac marker REBA results. Nasreen Nguyen. [facility] ACCT#[id number], ,,,, Specimen Blood specimen (specimen) Narrative Performed At CARDIAC TROP-12HR TROP-12 HR from 623:[id number]. INT [facility] CARDIAC Final: FINAL from 623:[id number] . Performing Organization Address [facility] one Number INTERFACE SYSTEM [facility] LABORATORY SERVICES CLIA# [id number] [place] [address] INTERFACE SYSTEM Refer to clinic/hospital department * CARDIAC INTERPRETATION (6 HR) (11/26/2012 12:20 AM CDT) INTERPRETATION Test not performedComment: [facility] ACCT#[id number], ,,,, SERVICES - [facility] REBA Specimen Narrative Performed At CARDIAC TROP-6HR TROP-6 HR from 623:[id number]. INTER FACE SYSTEM CARDIAC Interim: CAR6 from 623:[id number] R. Performing Organization Address [facility] [place] [place] Ph one Number INTERFACE SYSTEM [facility] LABORATORY SERVICES CLIA# [id number] [place]YSA STEWART [place] [id number] [place] [address] INTERFACE SYSTEM Refer to clinic/hospital department * TROPONIN (11/26/2012 12:20 AM CDT) TROPONIN I Test not performedComment: 0 - 0.4 ng/ml SATHISH [facility] ACCT#[id number], ,,,, SERVICES - ALYSA STEWART Specimen Narrative Performed At CARDIAC TROP-6HR TROP-6 HR from 24:[id number]. INTER FACE SYSTEM CARDIAC Interim: CAR6 from 623:[id number] R. Performing Organization Address [facility] one Number INTERFACE SYSTEM [facility] LABORATORY SERVICES CLIA# [id number] ALYSA STEWART [place] [address] [place] [address] INTERFACE SYSTEM Refer to clinic/hospital department * CARDIAC INTERPRETATION (3 HR) (11/25/2012 9:20 PM CDT) INTERPRETATION Test not performedComment: [facility]ferenceJaredWade[facility] SpecialtiesM[facility]UE [facility]OSS [facility] ACCT#[id number], ,,,, SERVICES - [facility] REBA Specimen Narrative Performed At CARDIAC JA-3HR JA-3 HR from 24:[id number]. INTERFA CE SYSTEM CARDIAC TROP-3HR TROP-3 HR from 24:CW 46547D. CARDIAC Interim: CAR3 from 24:[id number] R. Performing Organization Address [facility] one Number INTERFACE SYSTEM [facility] LABORATORY SERVICES CLIA# [id number] ALYSA STEWART [place] [address] [place] [address] INTERFACE SYSTEM Refer to clinic/hospital department * TROPONIN (11/25/2012 9:20 PM CDT) TROPONIN I Test not performedComment: 0 - 0.4 ng/ml [facility] ACCT#[id number], ,,,, SERVICES - [facility] REBA Specimen Narrative Performed At CARDIAC JA-3HR JA-3 HR from 24:[id number]. INTERFA CE SYSTEM CARDIAC TROP-3HR TROP-3 HR from 0624:CW 63411N. CARDIAC Interim: CAR3 from 24:[id number] R. Performing Organization Address [facility] one Number INTERFACE SYSTEM [facility] LABORATORY SERVICES CLIA# [id number] [place] [address] INTERFACE SYSTEM Refer to clinic/hospital department * MYOGLOBIN (11/25/2012 9:20 PM CDT) MYOGLOBIN, Test not performedComment: 9 - 83 ng/ml SATHISH CY PLASMA EUGENEMIGUE BOSS [facility]AT[facility] ACCT#[id number], ,,,, SERVICES - [facility] REBA Specimen Narrative Performed At CARDIAC JA-3HR JA-3 HR from 0624:[id number]. INTERFA CE SYSTEM CARDIAC TROP-3HR TROP-3 HR from 0624:CW 48123I. CARDIAC Interim: CAR3 from 0624:[id number] R. Performing Organization Address [facility] [place] [place] Ph one Number INTERFACE SYSTEM [facility] LABORATORY SERVICES CLIA# [id number] ALYSA STEWART [place] [address] [place] [address] INTERFACE SYSTEM Refer to clinic/hospital department * TROPONIN (11/25/2012 6:30 PM CDT) TROPONIN I LESS THAN 0.04Comment: 0 - 0.4 ng/ml [facility] ACCT#[id number], ,,,, SERVICES - [facility] REBA Specimen Narrative Performed At CARDIAC AJ-0HR JA-0 HR from 24:[id number]. INTERFA CE SYSTEM CARDIAC TROP-0HR TROP-0 HR from 24:CW 42819J. Performing Organization Address [facility] one Number INTERFACE SYSTEM [facility] LABORATORY SERVICES CLIA# [id number] [place] [address] INTERFACE SYSTEM Refer to clinic/hospital department * MYOGLOBIN (11/25/2012 6:30 PM CDT) MYOGLOBIN, 26Comment: [facility]ITALGERAMIGUE 9 - 83 ng/ml M ERCY [facility] ACCT#[id number], ,,,, LABORATORY SERVICES - [facility] REBA Specimen Narrative Performed At CARDIAC JA-0HR JA-0 HR from 0624:[id number]. INTERFA CE SYSTEM CARDIAC TROP-0HR TROP-0 HR from 0624:CW 72948V. Performing Organization Address [facility] [place] [place] Ph one Number INTERFACE SYSTEM [facility] LABORATORY SERVICES CLIA# [id number] [place] [address] [place] [address] INTERFACE SYSTEM Refer to clinic/hospital department * POC GLUCOSE (11/25/2012 4:41 PM CDT) POC GLUCOSE 130 (H)Comment: Jim Rain 70 - 110 mg/dl [facility] Jared [place], Point of Care LABORATORY Site,,,, SERVICES - ALYSA STEWART POC GLUCOSE 130 (H) 70 - 110 mg/dl [facility]ODJared [employer] LABORATORY SERVICES - ALYSA STEWART Specimen Performing Organization Address [facility] [place] [place] Ph one Number INTERFACE SYSTEM [facility] LABORATORY SERVICES CLIA# [id number] [place] [address] * POC GLUCOSE (11/25/2012 11:52 AM CDT) POC GLUCOSE 91Comment: Jim Rain, 70 - 110 mg/dl [facility] [place], Point of Care Site,,,, LABORATORY SERVICES - ALYSA STEWART POC GLUCOSE 91 70 - 110 mg/dl EUGENE [employer] LABORATORY SERVICES - ALYSA STEWART Specimen Performing Organization Address [facility] [place] [place] Ph one Number INTERFACE SYSTEM [facility] LABORATORY SERVICES CLIA# [id number] [place] [address] - [place] [address] * CT CHEST W CONTRAST (11/25/2012 10:49 AM CDT) Specimen Impressions Performed At IMPRESSION: No evidence of PE. Left upper lobe atelec tasis/pneumonia. INTERFACE SYSTEM Bibasilar scarring. Old granulomatous d isease. Narrative Performed At CT chest with contrast: INTERFACE SYSTEM HISTORY: Chest pain, rule out PE The patient had spiral scan through the chest with rapid bolus contrast enhancement. No mediastinal or hilar adenopathy is s een. There are atherosclerotic changes present. No filling defect or v essel cutoff is seen within the pulmonary arteries. There is increased density seen in the left upper lobe immediately adjacent to the major fissure posteriorly which may represent atelectasis and/or infiltrate . There is linear density at the bases consistent with scarring. The re are calcified granulomas present. No noncalcified nodules are se en. No pneumothorax. The heart appears normal. The visualized portion of the liver, spleen, and adrenals appear normal. Procedure Note Donaldo Aleman MD - 11/25/2012 2:[address] chest with contrast: HISTORY: Chest pain, rule out PE The patient had spiral scan through the chest with rapid bolus contrast enhancement. No mediastinal or hilar adenopathy is seen. There are atherosclerotic changes present. No filling defect or vessel cutoff is seen within the pulmonary arteries. There is increased density seen in the left upper lobe immediately adjacent to the major fissure posteriorly which may represent atelectasis and/or infiltrate. There is linear density at the bases consistent with scarring. There are calcified granulomas present. No noncalcified nodules are seen. No pneumothorax. The heart appears normal. The visualized portion of the liver, spleen, and adrenals appear normal. IMPRESSION IMPRESSION: No evidence of PE. Left upper lobe atelectasis/pneumonia. Bibasilar scarring. Old granulomatous disease. Performing Organization Address [facility] INTERFACE SYSTEM INTERFACE SYSTEM Refer to clinic/hospital department * TROPONIN (11/25/2012 9:55 AM CDT) [facility] TROPONIN I LESS THAN 0.04Comment: 0 - 0.4 ng/ml [facility]UANPABLOCLEVELAND CLINIC HILLCREST HOSPITALSIOMARADE LAB[facility]AT[facility] ACCT#[id number], ,,,, SERVICES - [place] Specimen Narrative Performed At CARDIAC TROP-12HR TROP-12 HR from 23:[id number]. INT ERFACE SYSTEM CARDIAC Final: FINAL from 23:[id number] . Performing Organization Address [facility] LABORATORY SERVICES CLIA# [id number] [place] [address] INTERFACE SYSTEM Refer to clinic/hospital department * CARDIAC ENZYMES (11/25/2012 9:55 AM CDT) Pathologist [facility] INTERPRETATION See below. EU[facility]E Comment: LABORATORY INTERPRETATION - 11/26/12 0736 [facility] Normal cardiac marker series, REBA no evidence of acute myocardial infarction. Nasreen Nguyen. [facility] ACCT#[id number], ,,,, Specimen Blood specimen (specimen) Narrative Performed At CARDIAC TROP-12HR TROP-12 HR from 23:[id number]. INT [employer] SYSTEM CARDIAC Final: FINAL from 23:[id number] . Performing Organization Address [facility] LABORATORY SERVICES CLIA# [id number] [place] [address] INTERFACE SYSTEM Refer to clinic/hospital department * POC GLUCOSE (11/25/2012 6:24 AM CDT) [facility] POC GLUCOSE 140 (H)Comment: Jim Rain 70 - 110 mg/dl JUANPABLO Migue [place], Point of Care LABORATORY Site,,,, SERVICES - ALYSA STEWART POC GLUCOSE 140 (H) 70 - 110 mg/dl [facility] LABORATORY SERVICES - ALYSA STEWART Specimen Performing Organization Address [facility] one Number INTERFACE SYSTEM [facility] LABORATORY SERVICES CLIA# [id number] [place] [address] * PROTIME-INR (11/25/2012 4:00 AM CDT) [facility] PROTIME 12.4 (H) 10.1 - 11.3 Sec [facility] - ALYSA STEWART INR 1.17 (L)Comment: 2.0 - 3.0 JUANPABLO EUGENEJIMJose CarlosMIGUE STEWART LABORATORY ACCT#[id number], ,,,, SERVICES - ALYSA STEWART Specimen Blood specimen (specimen) Performing Organization Address [facility] one Number INTERFACE [facility] LABORATORY SERVICES CLIA# [id number] [place] [address] * CARDIAC INTERPRETATION (6 HR) (11/25/2012 4:00 AM CDT) [facility] INTERPRETATION Test not performedComment: [facility] EUGENEMGIUE BOSS LABORATORY ACCT#[id number], ,,,, SERVICES - ALYSA STEWART Specimen Narrative Performed At CARDIAC TROP-6HR TROP-6 HR from 622:[id number]. INTER FACE SYSTEM CARDIAC Interim: CAR6 from 622:[id number] S. Performing Organization Address [facility] [place] [place] Ph one Number INTERFACE SYSTEM [facility] LABORATORY SERVICES CLIA# [id number] [place] [address] INTERFACE SYSTEM Refer to clinic/hospital department * TROPONIN (11/25/2012 4:00 AM CDT) [facility] TROPONIN I LESS THAN 0.04Comment: 0 - 0.4 ng/ml [facility] EUGENEMIGUE BOSS [facility] ACCT#[id number], ,,,, SERVICES - ALYSA STEWART Specimen Narrative Performed At CARDIAC TROP-6HR TROP-6 HR from 622:[id number]. INTER FACE SYSTEM CARDIAC Interim: CAR6 from 622:[id number] S. Performing Organization Address [facility] LABORATORY SERVICES CLIA# [id number] [place] [address] INTERFACE SYSTEM Refer to clinic/hospital department * CARDIAC INTERPRETATION (3 HR) (11/25/2012 1:10 AM CDT) INTERPRETATION Test not performedComment: [facility] ACCT#[id number], ,,,, SERVICES - ALYSA STEWART Specimen Narrative Performed At CARDIAC JA-3HR JA-3 HR from 622:[id number]. INTERFA CE SYSTEM CARDIAC TROP-3HR TROP-3 HR from 622:CW 81451I. CARDIAC Interim: CAR3 from 622:[id number] S. Performing Organization Address [facility] SYSTEM [facility] LABORATORY SERVICES CLIA# [id number] [place] [address] INTERFACE SYSTEM Refer to clinic/hospital department * TROPONIN (11/25/2012 1:10 AM CDT) TROPONIN I LESS THAN 0.04Comment: 0 - 0.4 ng/ml [facility]OSPITALJaredFORMERLY YANCEY COMMUNITY MEDICAL CENTERJose CarlosMIGUE STEWART LABORATORY ACCT#[id number], ,,,, SERVICES - ALYSA STEWART Specimen Narrative Performed At CARDIAC JA-3HR JA-3 HR from 622:[id number]. INTERFA CE SYSTEM CARDIAC TROP-3HR TROP-3 HR from 622:CW 36333H. CARDIAC Interim: CAR3 from 23:[id number] S. Performing Organization Address [facility] one Number [facility] SYSTEM [facility] LABORATORY SERVICES CLIA# [id number] [place] STEW[place] [id number] [place] [address] INTERFACE SYSTEM Refer to clinic/hospital department * MYOGLOBIN (11/25/2012 1:10 AM CDT) MYOGLOBIN, 43Comment: [facility]ITALMIGUE [facility]OSS 9 - 83 ng/ml M [facility] ACCT#[id number], ,,,, LABORATORY SERVICES - [place] Specimen Narrative Performed At CARDIAC JA-3HR JA-3 HR from 622:[id number]. INTERFA CE SYSTEM CARDIAC TROP-3HR TROP-3 HR from 622:CW 52988M. CARDIAC Interim: CAR3 from 622:[id number] S. Performing Organization Address [facility] Number INTERFACE SYSTEM [facility] LABORATORY SERVICES CLIA# [id number] [place], [place] [address] [place] [address] INTERFACE SYSTEM Refer to clinic/hospital department * XR CHEST PA AND LATERAL (11/24/2012 11:46 PM CDT) Specimen Impressions Performed At IMPRESSION: No acute cardiopulmonary disease. INTERF NOE SYSTEM Narrative Performed At PA and lateral chest INTERFACE SYSTEM COMPARISON: January 30, 2012 HISTORY: Chest pain The cardiac silhouette and pulmonary va scularity are within normal limits. There are no infiltrates or mas ses seen. No pneumothorax. Procedure Note Interface, [facility] Incoming Radiology Results - 11/25/2012 10:22 AM CDT PA and lateral chest COMPARISON: January 30, 2012 HISTORY: Chest pain The cardiac silhouette and pulmonary vascularity are within normal limits. There are no infiltrates or masses seen. No pneumothorax. IMPRESSION IMPRESSION: No acute cardiopulmonary disease. Performing Organization Address [facility] SYSTEM INTERFACE SYSTEM Refer to clinic/hospital department * D-DIMER (11/24/2012 9:58 PM CDT) Pathologist [facility] D-DIMER QUANT 219.0 0 - 400 ng/mL [facility] Comment: LABORATORY 90% of patients testing below [facility] 400 ng/ml have proven negative REBA for Thromboembolic Events. [place], [place] ACCT#[id number], ,,,, Specimen Blood specimen (specimen) Performing Organization Address [facility] Number INTERFACE SYSTEM [facility] LABORATORY SERVICES CLIA# [id number] [place] [address] * TROPONIN (11/24/2012 9:58 PM CDT) Pathologist [facility] TROPONIN I LESS THAN 0.04Comment: 0 - 0.4 ng/ml [place] LABORATORY ACCT#[id number], ,,,, SERVICES - [place] Specimen Narrative Performed At CARDIAC JA-0HR JA-0 HR from 0623:[id number]. INTERFA CE SYSTEM CARDIAC TROP-0HR TROP-0 HR from 0623:CW 64287E. Performing Organization Address [facility] one Number INTERFACE [facility] LABORATORY SERVICES CLIA# [id number] MIGUE RIOJAS [address] - ALYSA STEWART [address] [place] [address] INTERFACE SYSTEM Refer to clinic/hospital department * MYOGLOBIN (11/24/2012 9:58 PM CDT) MYOGLOBIN, 31Comment: [facility] 9 - 83 ng/ml M ERCY PLAS[facility] ACCT#[id number], ,,,, LABORATORY SERVICES - ALYSA REBA Specimen Narrative Performed At CARDIAC JA-0HR JA-0 HR from 0623:[id number]. INTERFA CE SYSTEM CARDIAC TROP-0HR TROP-0 HR from 0623:CW 38023W. Performing Organization Address [facility] INTERFACE [facility] LABORATORY SERVICES CLIA# [id number] [place] [address] INTERFACE SYSTEM Refer to clinic/hospital department * COMPREHENSIVE METABOLIC PANEL (11/24/2012 9:58 PM CDT) GLUCOSE 126 (H) 70 - 100 mg/dl [facility] LABORATORY SERVICES - ALYSA STEWART BUN 22.0 (H) 7 - 20 mg/dl [facility] LABORATORY SERVICES - ALYSA STEWART CREATININE 0.75 0.51 - 0.95 mg/dl [facility] LABORATORY SERVICES - ALYSA STEWART GFR 91 >60 ml/min [facility] LABORATORY SERVICES - ALYSA STEWART SODIUM 137 134 - 145 mmol/L [facility] LABORATORY SERVICES - ALYSA STEWART POTASSIUM 3.7 3.3 - 4.8 mmol/L [facility] LABORATORY SERVICES - [facility] REBA CHLORIDE 105 98 - 107 mmol/L [facility] LABORATORY SERVICES - ALYSA STEWART CO2 28.7 22 - 31 mmol/L [facility] LABORATORY SERVICES - ALYSA STEWART ANION GAP 3 (L) 7 - 16 [facility] LABORATORY SERVICES - ALYSA STEWART CALCIUM 7.9 (L) 8.5 - 10.1 mg/dl [facility] LABORATORY SERVICES - ALYSA STEWART ALBUMIN 3.4 3.4 - 5.0 g/dl [facility] LABORATORY SERVICES - ALYSA STEWART TOTAL PROTEIN 6.7 6.4 - 8.2 g/dl [facility] LABORATORY SERVICES - ALYSA STEWART BILIRUBIN TOTAL 0.2 <1.1 mg/dl [facility] LABORATORY SERVICES - ALYSA STEWART ALKALINE 138 (H) 50 - 136 IU/L [facility] PHOSPHATASE LABORATORY SERVICES - ALYSA STEWART AST 15 10 - 40 IU/L [facility] LABORATORY SERVICES - ALYSA STEWART ALT 48Comment: [facility]ITALM[facility] 25 - 70 IU/L M ERCY ACCT#[id number], ,,,, LABORATORY SERVICES - ALYSA STEWART Specimen Blood specimen (specimen) Performing Organization Address [facility] [place] [place] Ph one Number INTERFACE [facility] LABORATORY SERVICES CLIA# [id number] MIGUE RIOJAS [address] - ALYSA STEWART [address] [place] [address] * PROTIME-INR (11/24/2012 9:58 PM CDT) PROTIME 11.8 (H) 10.1 - 11.3 Sec [facility] ALYSA STEWART INR 1.11 (L)Comment: 2.0 - 3.0 [facility] [place] [place] LAB[place]ATORY ACCT#[id number], ,,,, SERVICES - ALYSA STEWART Specimen Blood specimen (specimen) Performing Organization Address [facility] [place] [place] Ph one Number INTERFACE [facility] LABORATORY SERVICES CLIA# [id number] MIGUE RIOJAS [address] ALYSA STEWART [address] [place] [address] * CBC WITH DIFFERENTIAL (11/24/2012 9:58 PM CDT) WBC 8.73 3.0 - 10.4 x10E3 [facility] LABORATORY [facility] ALYSA STEWART RBC 4.31 3.77 - 4.97 x10E6 [facility] LABORATORY [facility] ALYSA STEWART HEMOGLOBIN 13.2 11.9 - 15.0 g/dL [facility] LABORATORY [facility] ALYSA STEWART HEMATOCRIT 38.7 34.4 - 43.6 % [facility] LABORATORY SERVICES [facility] REBA MCV 89.7 79 - 100 fL [facility] LABORATORY SERVICES ALYSA STEWART MCH 30.6 28 - 34 pg [facility] LABORATORY [facility] ALYSA STEWART MCHC 34.1 31 - 35 g/dL [facility] LABORATORY [facility] REBA RDW 13.3 11.5 - 15.1 % [facility] LABORATORY [facility] REBA PLATELETS [phone] [facility] ALYSA STEWART MPV 8.6 7.4 - 10.6 fL [facility] - ALYSA STEWART NEUTROPHILS 54.2 43 - 73 % [facility] REBA LYMPHOCYTES 35.8 19 - 47 % [facility] RE[facility] MONOCYTES 5.7 3 - 9 % [facility] - ALYSA STEWART EOSINOPHILS 3.8 0 - 6 % [facility] RE[facility] BASOPHILS 0.5 0 - 1.2 % [facility] NEUTROPHIL 4.73 1.3 - 7.6 x10E3 [facility] REBA LYMPHOCYTE 3.12 0.6 - 4.9 x10E3 [facility] REBA MONOCYTE 0.50 0.1 - 0.9 x10E3 [facility] REBA EOSINOPHIL 0.33 (H) 0.0 - 0.2 x10E3 [facility] REBA BASOPHILS 0.04Comment: [place], [place] 0 - 0.1 x10E3 [facility] ACCT#[id number], ,,,, LABORATORY SERVICES - [place] Specimen Blood specimen (specimen) Performing Organization Address [facility] one Number INTERFACE SYSTEM [facility] CLIA# [id number] [place] [address] * BRAIN NATRIURETIC PEPTIDE, BNP OR PROBNP (11/24/2012 9:58 PM CDT) BRAIN 55Comment: [place], [place] 0 - 125 pg/ml M [facility] NATRIURETIC ACCT#[id number], ,,,, LABORATORY PEPTIDE SERVICES - [place] Specimen Blood specimen (specimen) Performing Organization Address [facility] one Number [facility] CLIA# [id number] [place] [address] documented in this encounter Visit Diagnoses Diagnosis Chest pain - Primary Chest pain, unspecified documented in this encounter Administered Medications Action Date Dose Rate Site Medication Order MAR Action 11/25/2012 5:27 PM CDT 324 mg aspirin (CARRIE CHEWABLE) chew tablet 324 Given mg 324 mg, Oral, DAILY, First dose on 11/24/12 at 2200, Until Discontinued, Routine 324 mg Given 11/24/2012 10:04 PM CDT 11/25/2012 12:14 AM CDT 120 mg Abdomen, Left Upper Quadrant enoxaparin (LOVENOX) injection 120 mg Given 120 mg (1 mg/kg 127 kg), subCUT, ONE TIME ONLY, 1 dose, 11/25/12 at 0015, Routine 11/25/2012 5:27 PM CDT 600 mg gabapentin (NEURONTIN) tablet 600 mg Given 600 mg, Oral, FOUR TIMES DAILY, First dose on Sun11/25/12 at 0900, Until Discontinued, Routine 600 mg Given 11/25/2012 1:10 PM CDT 600 mg Given 11/25/2012 8:34 AM CDT 11/25/2012 11:54 AM CDT 35 Units Arm, Rig ht Upper insulin glargine (LANTUS) 100 unit/mL Given injection 35 Units 35 Units, subCUT, DAILY, First dose on Sun11/25/12 at 1000, Until Discontinued , Routine 11/25/2012 10:40 AM CDT 100 mL ioversol (OPTIRAY 320) 320 mg iodine/mL Given injection IV, INTRA-PROCEDURE ONCE, 1 dose, Starting Sun11/25/12 at 1054, Until Sun11/25/12 at 1040 11/24/2012 10:57 PM CDT 30 mg ketorolac (TORADOL) injection 30 mg Given 30 mg, IV, ONE TIME ONLY, 1 dose, 11/24/12 at 2300, Stat 11/25/2012 2:57 PM CDT 30 mg ketorolac (TORADOL) injection 30 mg Given 30 mg, IV, ONE TIME ONLY, 1 dose, Sun11/25/12 at 1500, Routine 11/25/2012 8:35 AM CDT 10 mg loratadine (CLARITIN) tablet 10 mg Given 10 mg, Oral, DAILY, First dose on Sun11/25/12 at 0900, Until Discontinued, Routine, Previous Med: loratadine (CLARITIN) 10 mg Oral tablet - Orig Sig - Take 1 Tab by mouth daily., 11/24/2012 10:57 PM CDT 1 mg LORazepam (ATIVAN) 2 mg/mL injection 1 Given mg 1 mg, IV, ONE TIME ONLY, 1 dose, 11/24/12 at 2300, Routine 11/25/2012 2:24 PM CDT 1 mg LORazepam (ATIVAN) 2 mg/mL injection 1 Given mg 1 mg, IV, EVERY 6 HOURS PRN, Starting Sun11/25/12 at 0130, Until Sun11/25/12 at 2300, Anxiety, Routine 11/24/2012 10:44 PM CDT 2 mg morphine 5 mg/mL injection 2 mg Given 2 mg, IV, EVERY 5 MINUTES PRN, 5 doses, Starting Sun11/24/12 at 2150, Until Sun11/24/12 at 2244, Pain, Severe, Routine 2 mg Given 11/24/2012 10:35 PM CDT 2 mg Given 11/24/2012 10:25 PM CDT 11/25/2012 6:22 PM CDT 2 mg morphine 5 mg/mL injection 2 mg Given 2 mg, IV, ONE TIME ONLY, 1 dose, Sun11/25/12 at 1830, Routine 11/24/2012 10:19 PM CDT 0.4 mg nitroglycerin (NITROSTAT) tablet 0.4 mg Given 0.4 mg, Sublingual, EVERY 5 MINUTES PRN , 3 doses, Starting Hayes 11/24/12 at 2150, Until Sun11/24/12 at 2219, Chest Pain, Routine 0.4 mg Given 11/24/2012 10:12 PM CDT 0.4 mg Given 11/24/2012 10:04 PM CDT 11/25/2012 2:14 PM CDT 0.4 mg nitroglycerin (NITROSTAT) tablet 0.4 mg Given 0.4 mg, Sublingual, EVERY 5 MINUTES PRN , Starting Sun11/25/12 at 1021, Until Sun11/25/12 at 2300, Chest Pain, Not to exceed 3 doses, notify physician if chest pain not relieved, hold if systolic BP less than or equal to 100, Routine 0.4 mg Given 11/25/2012 2:08 PM CDT 0.4 mg Given 11/25/2012 1:59 PM CDT 11/25/2012 8:36 AM CDT 300 mg OXcarbazepine (TRILEPTAL) tablet 300 mg Given 300 mg, Oral, DAILY, First dose on Sun11/25/12 at 0900, Until Discontinued, Routine 11/25/2012 12:14 AM CDT 1 Tablet oxyCODONE-acetaminophen (PERCOCET) 5-325 Given mg per tablet 1 Tab 1 Tablet, Oral, ONE TIME ONLY, 1 dose, Sun11/25/12 at 0015, Routine 11/25/2012 10:40 AM CDT 10 mL sodium chloride 0.9 % flush injection 10 Given mL 10 mL, IV, SEE ADMIN INSTRUCTIONS, Starting Sun11/25/12 at 1054, Until Sun11/25/12 at 2300, Routine 11/25/2012 9:00 AM CDT 3 mL sodium chloride 0.9 % flush injection 3 Admin by mL Another 3 mL, IV, TWO TIMES DAILY, First dose on Clinician Sun11/24/12 at 2200, Until Discontinued, (Comment) Routine 3 mL Given 11/24/2012 10:04 PM CDT 11/25/2012 10:40 AM CDT 50 mL 50 mL/hr sodium chloride 0.9 % infusion New Bag IV, at 50 mL/hr, CONTINUOUS, Starting Sun11/25/12 at 1100, Until Sun11/25/12 at 1500, Routine SODIUM CHLORIDE 0.9 % SYRINGE 1 dose, Starting Sun11/24/12 at 2149, Until [place] 11/24/12 at 2204, Kessler OMNICELL: cabinet override, 11/25/2012 11:53 AM CDT 18 mcg tiotropium (SPIRIVA) capsule 18 mcg Given 18 mcg, Inhalation, DAILY RESPIRATORY, First dose on Sun11/25/12 at 0800, Unti l Discontinued, Routine, Previous Med: tiotropium (SPIRIVA) 18 mcg Inhalation capsule - Orig Sig - Take 18 mcg by inhalation daily., 11/25/2012 4:39 PM CDT 100 mg topiramate (TOPAMAX) tablet 100 mg Given 100 mg, Oral, TWO TIMES DAILY, First dose on Sun11/25/12 at 0900, Until Discontinued, Routine, Previous Med: topiramate (TOPAMAX) 100 mg Oral tablet - Orig Sig - Take 1 Tab by mouth 2 time s daily., 100 mg Given 11/25/2012 11:53 AM CDT 11/25/2012 4:38 PM CDT 100 mg traMADol (ULTRAM) tablet 100 mg Given 100 mg, Oral, EVERY 6 HOURS PRN, Starting Sun11/25/12 at 0130, Until Sun11/25/12 at 2300, Pain, Routine, Previou s Med: traMADol (ULTRAM) 50 mg Oral table t - Orig Sig - Take 2 Tabs by mouth every 6 hours as needed for Pain. , 100 mg Given 11/25/2012 8:35 AM CDT 11/25/2012 4:39 PM CDT 10 mg warfarin (COUMADIN) tablet 10 mg Given 10 mg, Oral, EVERY 72 HOURS, First dose on Sun11/25/12 at 1700, Until Discontinued, Routine documented in this encounter
--- OUTSIDE RECORDS SUMMARY | 2019-10-21 18:18 | XMS REPORT | Encounter Summary ---
Author Author [facility] Organization [facility] Address Unknown Phone Unavailable Care Team Providers Care Guest Experience Representative Name Role Phone Robby Rajan Мария KILLIAN Unavailable Phong Stephens MD PCP Unavailable Reason for Visit * Reason Comments Medication Refill Encounter Details Care Team Description Date Type Department Phong Stephens MD NO ADDRESS ON FILE 11/21/2012 Refill [facility] Primar y Care [address] [address] Social History Date Tobacco Use [...]
--- OUTSIDE RECORDS SUMMARY | 2019-10-21 18:18 | XMS REPORT | Encounter Summary ---
Author Author [facility] Organization [facility] Address Unknown Phone Unavailable Care Team Providers Care Contracts Intern Name Role Phone Robby Rajan STOCK CRANE OPERATOR Unavailable Phong Stephens MD PCP Unavailable Reason for Referral * Eval and Treat (Routine) Referred By Contact Referred To Contact Status Reason Specialty Diagnoses / Procedures Phong Stephens MD NO ADDRESS ON FILE Vincenzo Rodríguez MD [address] [place] [address] Closed Orthopedic Diagnoses Surgery Right wrist pain Reason for Visit * Reason Comments Wrist Pain right, should I see Dr Jhony shepherd? Encounter Details Care Team Description Date Type Department Jessica Christian Wrist Pain (right, should I see Dr Roxy tsai?) 10/21/[address] [address] Social History Date Tobacco Use [...] * Telephone Encounter - Jessica Christian - 10/21/2012 11:[address] Stephens refer to Dr Rodríguez. documented in this encounter Plan of Treatment Order Schedule Name Type Priority Associated Diag noses Ordered: 10/21/2012 AMB REFERRAL TO Outpatient Routine Right wrist pa in ORTHOPEDIC SURGERY Referral documented as of this encounter Visit Diagnoses Diagnosis Right wrist pain - Primary Pain in joint, forearm documented in this encounter
--- OUTSIDE RECORDS SUMMARY | 2019-10-21 18:18 | XMS REPORT | Encounter Summary ---
Author Author [facility] Organization [facility] Address Unknown Phone Unavailable Care Team Providers Care Polisher Sand Name Role Phone Robby Rajan INSPECTION SUPERVISOR Unavailable Phong Stephens MD PCP Unavailable Reason for Visit * Reason Comments Information Needs copy of patients face sheet and insurance Encounter Details Care Team Description Date Type Department Jessica Christian Information (Needs copy of patients face sheet and insurance) 09/27/2012 Telephone [facility] Primar Care [address] [address] Social History Date Tobacco Use [...] * Telephone Encounter - Jessica Christian - 09/27/2012 3:23 PM CDT Copy of records sent to Dr Rasmussen at [facility] in regard to referral for urology care. documented in this encounter Plan of Treatment Not on filedocumented as of this encounter Visit Diagnoses Not on filedocumented in this encounter
--- OUTSIDE RECORDS SUMMARY | 2019-10-21 18:18 | XMS REPORT | Encounter Summary ---
Author Author [facility] Organization [facility] Address Unknown Phone Unavailable Care Team Providers Care Five Piece Expansion Maker Hand Name Role Phone Robby Rajan APRN Unavailable Phong Stephens MD PCP Unavailable Reason for Referral * Eval and Treat (Routine) Referred By Contact Referred To Contact Status Reason Specialty Diagnoses / Procedures [facility] Primary Care [address] [phone] Petey Morales MD [address] [place] [address] Closed Urology Diagnoses Urinary retention Encounter Details Care Team Description Date Type Department Jessica Christian Urinary retention (Primary Dx) 09/24/[address] [facility] Primar y Care [address] [phone] Social History Date Tobacco Use [...] Name Type Priority Associated Diag noses Ordered: 09/24/2012 AMB REFERRAL TO UROLOGY Outpatient Routine Urinar y retention Referral documented as of this encounter Visit Diagnoses Diagnosis Urinary retention - Primary Retention of urine, unspecified documented in this encounter
--- OUTSIDE RECORDS SUMMARY | 2019-10-21 18:18 | XMS REPORT | Encounter Summary ---
Author Author [facility] Organization [facility] Address Unknown Phone Unavailable Care Team Providers Care Timber Watchman Name Role Phone Robby Rajan APRN Unavailable Phong Stephens MD PCP Unavailable Reason for Visit * Reason Comments Referral Request Encounter Details Care Team Description Date Type Department Lilliam Durant Referral Request 10/22/2012 Telephone [facility] Orthop edics [address] [address] Social History Date Tobacco Use [...] encounter Miscellaneous Notes * Telephone Encounter - Lilliam Durant - 10/22/2012 2:43 PM CDT wants patient referred for wrist pain. I have tried several times to call her & have not been able to reach her & her voicemail has not been set up. I will continue trying to call. documented in this encounter Plan of Treatment Not on filedocumented as of this encounter Visit Diagnoses Not on filedocumented in this encounter
--- OUTSIDE RECORDS SUMMARY | 2019-10-21 18:18 | XMS REPORT | Encounter Summary ---
Author Author [facility] Organization [facility] Address Unknown Phone Unavailable Care Team Providers Care Cyber Security Manager Name Role Phone King Robby Мария PATIENT SERVICE SPECIALIST Unavailable Phong Stephens MD PCP Unavailable Reason for Visit * Reason Comments Information needs urologist referral, Hugo Rasmussen leaving [place]. Encounter Details Care Team Description Date Type Department Jessica Christian Information (needs urologist referral, Hugo Rasmussen leaving [place].) 10/11/2012 Telephone [facility] Primar y Care [address] [phone] Social History Date Tobacco Use Types Packs/Day [...] Telephone Encounter - Jessica Christian - 10/11/2012 2:37 PM CDT Patient will need new referral to urologist. Dr Sotelo in [place] will look at records and call Ayden with date. We will have Ayden sign release of inf ormation and get records faxed to us. documented in this encounter Plan of Treatment Not on filedocumented as of this encounter Visit Diagnoses Not on filedocumented in this encounter
--- OUTSIDE RECORDS SUMMARY | 2019-10-21 18:18 | XMS REPORT | Encounter Summary ---
Author Author [facility] Organization [facility] Address Unknown Phone Unavailable Care Team Providers Care Slip Cover Cutter Name Role Phone Robby Rajan APRN Unavailable Phong Stephens MD PCP Unavailable Reason for Visit * Eval and Treat (Routine) Referred By Contact Referred To Contact Status Reason Specialty Diagnoses / Procedures Vincenzo Rodríguez MD [address] [place] [address] Closed Occupational Diagnoses Therapy Tendonitis of wrist, right Carpal tunnel syndrome Cubital tunnel syndrome on right Ulnar tunnel syndrome Encounter Details Care Team Description Date Type Department Vincenzo Rodríguez MD [address] [place] [address] Heydi Lemus, Occupational Therapist Yue, Heydi Dukes, Occupational Therapist Left without seen 11/14/2012 [facility] ort Encounter [facility] Occupational Therapy [address] [place] [address] Social History Date Tobacco Use [...] ACCU-CHEK ACTIVE CARE by See Admin 0 [facility] Kit Instructions route. Before meals, at bedtime, and as needed 09/23/2012 03/10/2013 loratadine (CLARITIN) 10 Take 1 Tab by 30 Tab 11 mg Oral mouth daily. tabletIndications: Acute URI 09/06/2012 01/15/2013 Insulin [place], 1 Package 11 Disposable, (BD INSULIN PEN NEEDLE UF SHORT) 31 X 5/16 " [facility] NdleIndications: Type II or unspecified type diabetes [...]
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
--- OUTSIDE RECORDS SUMMARY | 2019-10-21 18:18 | XMS REPORT | Encounter Summary ---
Author Author [facility] Organization [facility] Address Unknown Phone Unavailable Care Team Providers Care Railroad Car Letterer Name Role Phone Robby Rajan CONSTANTIN Unavailable Phong Stephens MD PCP Unavailable Reason for Referral * Eval and Treat (Routine) Referred By Contact Referred To Contact Status Reason Specialty Diagnoses / Procedures Vincenzo Rodríguez MD [address] [place] [address] Canelo Patton MD [address] [address] Closed Neurology Diagnoses Tendonitis of wrist, right Carpal tunnel syndrome Cubital tunnel syndrome on right Ulnar tunnel syndrome * Eval and Treat (Routine) Referred By Contact Referred To Contact Status Reason Specialty Diagnoses / Procedures Vincenzo Rodríguez MD [address] [place] [address] Closed Occupational Diagnoses Therapy Tendonitis of wrist, right Carpal tunnel syndrome Cubital tunnel syndrome on right Ulnar tunnel syndrome Reason for Visit * Reason Comments Wrist Pain * Eval and Treat (Routine) Referred By Contact Referred To Contact Status Reason Specialty Diagnoses / Procedures Phong Stephens MD NO ADDRESS ON FILE Vincenzo Rodríguez MD [address] [place] [address] Closed Orthopedic Diagnoses Surgery Right wrist pain Encounter Details Care Team Description Date Type Department Phong Stephens MD NO ADDRESS ON FILE Vincenzo Rodríguez MD [address] [facility] [place] [address] [phone] Tendonitis of wrist, right (Primary Dx); Carpal tunnel syndrome; Cubital tunnel syndrome on right; Ulnar tunnel syndrome 11/06/2012 Office Visit [facility] [address] [address] Social History Date Tobacco Use Types Packs/Day Years Used Current Every Day Smoker Cigarettes 06 30 Smokeless Tobacco: Never Used Comments: STARTED SMOKING AGE 11 Drinks/Week oz/Week Comments Alcohol Use "very rarely" No Sex Assigned at Date Recorded Not on file Industry Job Start Date Occupation Not on file Not on file Not on file Travel End Travel History Travel Start No recent travel history available. documented as of this encounter Progress Notes * Vincenzo Rodríguez MD - 11/07/2012 2:24 PM CDT Chief complaint- right wrist and hand pain , numbness and tingling History of present illness- the patient is a 42-year-old white female who is co mplaining of the above since a fall on August 28. She states she tried to catch h erself and her wrist hyperextended. She is right-hand dominant. She really didn' t have any pain that day but the next day she started noticing some increased pa in with lifting she had pain over the ulnar aspect of the wrist. She saw Dr. Mike patel approximately 2 weeks later and he placed her wrist splint which did not he lp. She now has pain in her thumb and fifth finger and difficulty gripping anyth ing due to the pain. She also notes some numbness and tingling in the thumb inde x middle and fifth fingers for approximately 4 weeks it seems to be getting wors e. Anytime she can it's the ulnar aspect the wrist or puts pressure on it she is increased pain. She is taking ibuprofen 800 mg 3 times a day has been doing that for several months due to other areas of pain. She has had a previous carpal t unnel but done by Dr. Juarez in 1996. She's had no physical therapy. She is now we aring the splint because it bothered her and the metal stays Came out. Exam of the right upper extremity shows full range of motion of the shoulder an d elbow without pain. No deformity is noted in the right upper extremity. She ahuja s a mildly positive Tinel's over the ulnar nerve at the elbow with minimal radia tion down the forearm. She has no pain on palpation of the forearm. She has pain on palpation of the dorsal wrist extensors as well as the DeQuervain's tendons. She has minimally positive Sera's test she has pain over the distal rad ial ulnar joint as well as just distal to the ulna over the ulnar carpal joint. She has decreased motion the wrist as well as of the fingers. No swelling is not ed in the hand or wrist. she has a good radial pulse and good capillary refill. She has weakness on flexion and extension the wrist against resistance as well as gripping. She has altered sensation in all of her fingers and thumb. Shows a positive Tinel's over the median and ulnar nerves at the wrist. She has a well-h ealed surgical incision just distal to the Wrist crease. No skin changes are no ari. X-rays of the wrist were reviewed from September 09 and it shows no bony changes. Impression- #1) recurrent carpal tunnel syndrome, #2) ulnar tunnel syndrome, #3) cubital tunnel syndrome, #4) tendinitis right wrist, #5) DeQuervain's teno synovitis Right wrist, #6) sprain of the distal radial ulnar joint right wrist , #7) possible TFCC tear right wrist Plan- the above was discussed with the patient. I would recommend a wrist immob ilizer which was applied. I would recommend EMG of the right upper extremity an d this was ordered with Dr. Patton. I would recommend occupational therapy to impr ove range of motion and strength and decreased inflammation of the wrist and rosales d. She will call after her EMG as scheduled to schedule a followup visit to just discussed the findings of the EMG and check on improvement with therapy. Also c ontinue ibuprofen 800 mg 3 times a day with food. documented in this encounter Plan of Treatment Order Schedule Name Type Priority Associated Diag noses Ordered: 11/06/2012 AMB REFERRAL TO Outpatient Routine Tendonitis of wrist, OCCUPATIONAL THERAPY Referral right Carpal tunnel syndrome Cubital tunnel syndrome on right Ulnar tunnel syndrome Ordered: 11/06/2012 AMB REFERRAL TO NEUROLOGY Outpatient Routine Tend onitis of wrist, Referral right Carpal tunnel syndrome Cubital tunnel syndrome on right Ulnar tunnel syndrome documented as of this encounter Visit Diagnoses Diagnosis Tendonitis of wrist, right - Primary Other tenosynovitis of hand and wrist Carpal tunnel syndrome Cubital tunnel syndrome on right Lesion of ulnar nerve Ulnar tunnel syndrome Lesion of ulnar nerve documented in this encounter
--- OUTSIDE RECORDS SUMMARY | 2019-10-21 18:19 | XMS REPORT | Encounter Summary ---
Author Author [facility] Organization [facility] Address Unknown Phone Unavailable Care Team Providers Care Technical Support Coordinator Name Role Phone Robby Rajan CONSTANTIN Unavailable Phong Stephens MD PCP Unavailable Reason for Visit * Reason Comments Dizziness woke up this morning Neck Pain onset today Ear Drainage "feel full" Dental Problem pain, swelling, all teeth t op and bottom Encounter Details Care Team Description Date Type Department Phong Stephens MD NO ADDRESS ON FILE Infectious otitis externa (Primary Dx); Dizzy 08/07/[address] [facility] Prim[facility] y Care [address] [address] Social History Date Tobacco Use [...] Signs Reading Time Taken Comments Vital Sign 118/76 08/07/2012 12:10 PM STENCIL MAKER Blood Pressure 91 08/07/2012 12:10 PM STENCIL MAKER Pulse - - Temperature - - Respiratory Rate 97% 08/07/2012 12:10 PM STENCIL MAKER Oxygen Saturation - - Inhaled Oxygen Concentration 128.8 kg (284 lb) 08/07/2012 12:10 PM STENCIL MAKER Weight 157.5 cm (5' 2") 08/07/2012 12:10 PM STENCIL MAKER Height 51.94 08/07/2012 12:10 PM STENCIL MAKER Body Mass Index documented in this encounter Progress Notes * Phong Stephens MD - 08/10/2012 8:31 AM STENCIL MAKER Subjective: Ayden Odom is a 42 y.o. [...] Prior to Visit Medication Sig Dispense Refill albuterol-ipratropium (COMBIVENT) 103-18 mcg/Actuation Inhalation Aero Take [...] ne eded for Pain. 60 Tab 2 amoxicillin-clavulanate (AUGMENTIN) 875-125 mg Oral tablet Take 1 Tab by andrew th every 12 hours. 20 Tab 0 sulfamethoxazole-trimethoprim (BACTRIM DS) 800-160 mg Oral tablet Take 1 Tab by mouth 2 times daily for 10 days. 20 Tab 0 potassium chloride SR (K-DUR) 10 mEq Oral [...] daily at bedtim e. 90 Tab 1 warfarin (COUMADIN) 5 mg Oral tablet 2 tabs daily on days 1 and 2, then 1 ta b on day 3, then repeat cycle 50 Tab 2 insulin glargine (LANTUS) 100 unit/mL subCUT 35 units in AM & 40 units in PM 3 mL 11 OLANZapine (ZYPREXA ZYDIS) [address] 10 mg inside cheek 1 time d aily as needed. SUMAtriptan (IMITREX) 100 mg Oral tablet TAKE 1 TABLET BY MOUTH DIRECTED (MAY REPEAT IN 2 HOURS, MAX OF 2 TABLETS IN 24 HOURS) 8 Tab 5 loratadine (CLARITIN) 10 mg Oral tablet Take 1 Tab by mouth daily. 30 Tab 11 temazepam (RESTORIL) 15 mg Oral capsule Take 15 mg by mouth. 2 at hs Insulin [place], Disposable, (BD INSULIN PEN NEEDLE UF SHORT) 31 X 5/16 " Mi sc Ndle 1 Package 11 OXcarbazepine (TRILEPTAL) 150 mg Oral tablet Take 300 mg by mouth daily at b edtime. PARoxetine HCl (PAXIL) 10 mg Oral tablet Take 10 mg by mouth daily. tiotropium (SPIRIVA) 18 mcg Inhalation capsule Take 18 mcg by inhalation cathleen ly. levalbuterol HFA (XOPENEX HFA) 45 mcg/Actuation Inhalation HFAA Take 2 Puffs by inhalation every 6 hours. 1 Inhaler 5 topiramate (TOPAMAX) 100 mg Oral tablet Take 1 Tab by mouth 2 times daily. 60 Tab 5 Oxygen-Air Delivery Systems Misc Leisa Take 2 L/min by inhalation daily at be dtiwi. ACCU-CHEK ACTIVE CARE Misc Kit by See Admin Instructions route. Before meals , at bedtime, and as needed oxyCODONE-acetaminophen (PERCOCET) 10-325 mg Oral Tab Take 0.5-1 Tabs by andrew th every 4 hours as needed for Pain or Pain, Severe (max 4 per day). 30 Tab 0 ibuprofen (MOTRIN) 800 mg Oral tablet Take 1 Tab by mouth every 8 hours as n eeded for Pain, Mild. 100 Tab 2 ondansetron (ZOFRAN ODT) [address] 1 Tab under tongue every 6 fidelia rs as needed for Nausea/Emesis. 12 Tab 3 acetaminophen (TYLENOL EXTRA STRENGTH) 500 mg Oral tablet Take 1-2 Tabs by m outh every 6 hours as needed for Pain. 100 Tab 2 metoprolol succinate ER 24 hour (TOPROL XL) 100 mg Oral tablet Take 100 mg b y mouth daily. HPI: Ms. Odom complains of the following (by systems): URI associated symtoms: seen in urgent care last noc with swelling , celluliti s of L ear and otitis ext. see that note for details. she is better today with less pain, swelling, drainage. Awoke this am and is having recurrance of dizziness, L ear drainage and pain and pain sinus areas. Has not attended classes Review of Systems: ROS Denies all of the following: Headache Dizziness Chest pain Shortness of breath Bowel changes Bladder changes Pain in muscle or joints Exam/Objective: Normal Exam for Routine Visits: \\Blood pressure 118/76, pulse 91, height 5' 2" ( 1.575 m), weight 284 lb (128.822 kg), SpO2 97.00%. General appearance:looks more strung out, tired but sl restless and admits to me th use few days ago active, alert, cooperative, social, normally nourished, and in no acute distress Lungs: breath sounds equal, clear to auscultation bilaterally, no retractions, n o stridor, normal respiratory effort Heart: regular rate and rhythm, S1, S2 normal, no murmur, click, rub, gallop, or abnormal sounds. HEENT: congested, R ear neg. L ear with swelling lobe, redness and exudate fro m canal. Today canal is improved but still irritate at ext opening. Mild redne ss surronding but mild tender and less than last noc. No abscess Assessment and Plan: ASSESSMENT: Encounter Diagnoses Name Primary? Infectious otitis externa Yes Dizzy PLAN: Orders Placed This Encounter neomycin-polymyxin B-hydrocortisone (CORTISPORIN OTIC) 3.5-10,000-1 mg-unit/ mL-% OT otic suspension meclizine (ANTIVERT) 25 mg Oral tablet Appropriate medications prescribed (see detailed AVS). Appropriate patient instructions provided (see detailed AVS). Follow-up as I have indicated. Medications and options explained to include common side effects. Understanding of medications, course, diagnosis, and expectations were expressed by patient/g uardian. CIL MAKER documented in this encounter Plan of Treatment Not on filedocumented as of this encounter Visit Diagnoses Diagnosis Infectious otitis externa - Primary Infective otitis externa, unspecified Dizzy Dizziness and giddiness documented in this encounter
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
--- OUTSIDE RECORDS SUMMARY | 2019-10-21 18:19 | XMS REPORT | Encounter Summary ---
Author Author [facility] Organization [facility] Address Unknown Phone Unavailable Care Team Providers Care Mechanical Manager Name Role Phone Robby Rajan Мария KILLIAN Unavailable Phong Stephens MD PCP Unavailable Reason for Visit * Reason Comments Medication Refill Encounter Details Care Team Description Date Type Department Phong Stephens MD NO ADDRESS ON FILE Lumbago (Primary Dx) 08/06/2012 Refill [facility] [address] [phone] Social History Date Tobacco Use Types Packs/Day [...] as of this encounter Visit Diagnoses Diagnosis Lumbago - Primary documented in this encounter
--- OUTSIDE RECORDS SUMMARY | 2019-10-21 18:19 | XMS REPORT | Encounter Summary ---
Author Author [facility] Organization [facility] Address Unknown Phone Unavailable Care Team Providers Care Marketing Production Specialist Name Role Phone Robby Rajan METAL BASE BLOCKER Unavailable Phong Stephens MD PCP Unavailable Reason for Visit * Reason Comments Hoarse since today Cough productive "yellow/green th ick" x1 wk, has been using PCN she had Leg Pain c/o rt leg pain x2 days Generalized Body Aches x2-3 days Shortness of Breath x1 wk Letter for School/Work Encounter Details Care Team Description Date Type Department Phong Stephens MD NO ADDRESS ON FILE Cough (Primary Dx) 07/09/2012 Office Visit [facility] Primar Care [address] [phone] Social History Date Tobacco Use [...] Signs Reading Time Taken Comments Vital Sign 120/72 07/09/2012 11:43 AM MILITARY TECHNOLOGY SPECIALIST Blood Pressure 93 07/09/2012 11:43 AM MILITARY TECHNOLOGY SPECIALIST Pulse 37.3 C (99.1 F) 07/09/2012 11:43 AM MILITARY TECHNOLOGY SPECIALIST Temperature - - Respiratory Rate 97% 07/09/2012 11:43 AM MILITARY TECHNOLOGY SPECIALIST Oxygen Saturation - - Inhaled Oxygen Concentration 132.5 kg (292 lb) 07/09/2012 11:43 AM MILITARY TECHNOLOGY SPECIALIST Weight 160 cm (5' 3") 07/09/2012 11:43 AM MILITARY TECHNOLOGY SPECIALIST Height 51.73 07/09/2012 11:43 AM MILITARY TECHNOLOGY SPECIALIST Body Mass Index documented in this encounter Progress Notes * Phong Stephens MD - 07/13/2012 11:03 AM MILITARY TECHNOLOGY SPECIALIST Subjective: Ayden Odom is a 42 y.o. [...] Needs flu shot V04.81 Methamphetamine abuse 305.70 Current Outpatient Prescriptions on File Prior to Visit Medication Sig Dispense Refill gabapentin (NEURONTIN) 600 mg Oral tablet Take 1 Tab by mouth 4 times daily. 120 Tab 11 oxyCODONE-acetaminophen (PERCOCET) 10-325 mg Oral Tab Take 0.5-1 Tabs by andrew th every 4 hours as needed for Pain or Pain, Severe (max 4 per day). 30 Tab 0 penicillin V potassium (VEETID) 500 mg Oral tablet Take 1 Tab by mouth 4 karissa es daily. 40 Tab 1 traMADol (ULTRAM) 50 mg Oral tablet Take 2 Tabs by mouth every 6 hours as ne eded for Pain. 60 Tab 1 atorvastatin (LIPITOR) 20 mg Oral tablet Take [...] Tab by mouth daily. 30 Tab 11 albuterol-ipratropium (COMBIVENT) 103-18 mcg/Actuation Inhalation Aero Take 2 Puffs by inhalation every 6 hours as needed for Shortness of Breath. 1 Inhale r 11 temazepam (RESTORIL) 15 mg Oral capsule Take 15 mg by mouth. 2 at hs Insulin [place], Disposable, (BD INSULIN PEN NEEDLE UF SHORT) 31 X 5/16 " Mi sc Ndle 1 Package 11 OXcarbazepine (TRILEPTAL) 150 mg Oral tablet Take 300 mg by mouth daily at b edtime. ipratropium-albuterol (DUONEB) 0.5 mg-3 mg(2.5 mg base)/3 mL Inhalation Nebu Take 3 mL by inhalation every 6 hours as needed for Shortness of Breath. 1 Pac kage 3 PARoxetine HCl (PAXIL) 10 mg Oral tablet [...] meals , at bedtime, and as needed HPI: Ms. Odom complains of the following (by systems): URI associated symtoms: sore throat, congestion, ear pressure, sinus pressure, productive cough, achiness, low grade fevers and worsening x several days. has not been able to attend classes. Review of Systems: ROS Denies all of the following acutely: Headache Dizziness Chest pain Shortness of breath Bowel changes Bladder changes Pain in muscle or joints Exam/Objective: Normal Exam for Routine Visits: \\Blood pressure 120/72, pulse 93, temperature 99 .1 F (37.3 C), height 5' 3" (1.6 m), weight 292 lb (132.45 kg), SpO2 97.00%. General appearance: unhealthy appearing, active, alert, cooperative, social, nor fay nourished, and in no acute distress Lungs: breath sounds equal, few coarse to auscultation bilaterally, no retractio ns, no stridor, normal respiratory effort Heart: regular rate and rhythm, S1, S2 normal, no murmur, click, rub, gallop, or abnormal sounds. Abdomen: soft, non-tender. Bowel sounds normal. No masses, no organomegaly. Ac tive bowel sounds. Extremities: symmetrical non edematous. HENT: congested , sinus tender, yellow drainage Assessment and Plan: ASSESSMENT: Encounter Diagnosis Name Primary? Cough Yes PLAN: Orders Placed This Encounter predniSONE (DELTASONE) 10 mg Oral tablet azithromycin (ZITHROMAX) 250 mg Oral tablet benzonatate (TESSALON) 100 mg Oral capsule Appropriate medications prescribed (see detailed AVS). Appropriate patient instructions provided (see detailed AVS). Follow-up as I have indicated. Medications and options explained to include common side effects. Understanding of medications, course, diagnosis, and expectations were expressed by patient/g uardian. TARY TECHNOLOGY SPECIALIST documented in this encounter Plan of Treatment Not on filedocumented as of this encounter Visit Diagnoses Diagnosis Cough - Primary documented in this encounter
--- OUTSIDE RECORDS SUMMARY | 2019-10-21 18:19 | XMS REPORT | Encounter Summary ---
Author Author [facility] Organization [facility] Address Unknown Phone Unavailable Care Team Providers Care Bench Lathe Operator Name Role Phone Robby Rajan Мария KILLIAN Unavailable Phong Stephens MD PCP Unavailable Reason for Visit * Reason Comments Medication Refill Encounter Details Care Team Description Date Type Department Phong Stephens MD NO ADDRESS ON FILE Type II or unspecified type diabetes flori litus without mention of complication, not stated as uncontrolled (Primary Dx) [facility] [phone] Social History Date Tobacco Use Types Packs/Day [...]
--- OUTSIDE RECORDS SUMMARY | 2019-10-21 18:19 | XMS REPORT | Encounter Summary ---
Author Author [facility] Organization [facility] Address Unknown Phone Unavailable Care Team Providers Care Lapel Stitcher Name Role Phone Robby Rajan CONSTANTIN Unavailable Phong Stephens MD PCP Unavailable Encounter Details Care Team Description Date Type Department Phong Stephens MD NO ADDRESS ON FILE 09/09[facility] [address] [phone] Social History Date Tobacco Use [...] Before meals, at bedtime, and as needed 09/06/2012 01/15/2013 Insulin [place], 1 Package 11 Disposable, (BD INSULIN PEN [...] Name Priority Date/Time Associated Diag nosis XR WRIST 3+ VW RIGHT Routine 09/09/[address] pain 5:06 PM CDT documented in this encounter Results * XR WRIST 3+ VW RIGHT (09/09/2012 5:06 PM CDT) Specimen Impressions Performed At Impression: Normal wrist. INTERFACE SYSTEM Narrative Performed At Right Wrist INTERFACE SYSTEM Clinical history: Pain. 3 views are obtained. Findings: There are no fractures or d islocations seen. No bony masses are noted. Soft tissues appear normal. Procedure Note Interface, [facility] Incoming Radiology Results - 09/10/2012 8:41 AM CDT Right Wrist Clinical history: Pain. 3 views are obtained. Findings: There are no fractures or dislocations seen. No bony masses are noted. Soft tissues appear normal. IMPRESSION Impression: Normal wrist. Performing Organization Address City/State/Zipcode Ph one Number INTERFACE SYSTEM INTERFACE SYSTEM Refer to clinic/hospital department documented in this encounter Visit Diagnoses Diagnosis Right wrist pain Pain in joint, forearm documented in this encounter
--- OUTSIDE RECORDS SUMMARY | 2019-10-21 18:19 | XMS REPORT | Encounter Summary ---
Author Author [facility] Organization [facility] Address Unknown Phone Unavailable Care Team Providers Care Zipper Setter Lockstitch Name Role Phone SatinderRobby Мария KILLIAN Unavailable Phong Stephens MD PCP Unavailable Reason for Visit * Reason Comments PPD Test possible exposure to TB Encounter Details Care Team Description Date Type Department Ban Pearce NP [address] [place] [address] Exposure to TB (Primary Dx); Visit for TB skin test 08/09/2012 Office Visit [facility] [place] [address] [place] [address] Social History Date Tobacco Use [...] Comments Vital Sign - - Blood Pressure - - Pulse - - Temperature 20 08/09/2012 12:44 PM SKIN INSTALLER Respiratory Rate - - Oxygen Saturation - - Inhaled Oxygen Concentration 128.8 kg (284 lb) 08/09/2012 12:44 PM SKIN INSTALLER Weight 162.6 cm (5' 4") 08/09/2012 12:44 PM SKIN INSTALLER Height 48.75 08/09/2012 12:44 PM SKIN INSTALLER Body Mass Index documented in this encounter Progress Notes * Idania Arnold NP - 08/12/2012 3:35 PM CDT TB test read: negative. 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 She s tates that she had a positive TB skin test last year but no record is found in [place]. Attempted to call [facility] but no one answered. Se e TB skin test results scanned for patient files. INSTALLER documented in this encounter Plan of Treatment Not on filedocumented as of this encounter Visit Diagnoses Diagnosis Exposure to TB - Primary Contact with or exposure to tuberculosi s Visit for TB skin test Screening examination for pulmonary tub erculosis documented in this encounter
--- OUTSIDE RECORDS SUMMARY | 2019-10-21 18:19 | XMS REPORT | Encounter Summary ---
Author Author [facility] Organization [facility] Address Unknown Phone Unavailable Care Team Providers Care Data Center Technician Name Role Phone Robby Rajan Мария KILLIAN Unavailable Phong Stephens MD PCP Unavailable Reason for Visit * Reason Comments Medication Refill Encounter Details Care Team Description Date Type Department Phong Stephens MD NO ADDRESS ON FILE 08/06/2012 Refill [facility] Primar y Care [address] [phone] Social History Date Tobacco [...]
--- OUTSIDE RECORDS SUMMARY | 2019-10-21 18:19 | XMS REPORT | Encounter Summary ---
Author Author [facility] Organization [facility] Address Unknown Phone Unavailable Care Team Providers Care Premium Representative Name Role Phone Robby Rajan CONSTANTIN Unavailable Phong Stephens MD PCP Unavailable Reason for Visit * Reason Comments Ear Pain Sinus Problem Encounter Details Care Team Description Date Type Department Phong Stephens MD NO ADDRESS ON FILE Acute URI (Primary Dx); Hyperlipidemia; DM w/o complication type II 08/15/2012 Office Visit [facility] Primar y Care [address] [phone] Social History Date Tobacco Use [...] Signs Reading Time Taken Comments Vital Sign 110/68 08/15/2012 11:02 AM CDT Blood Pressure 64 08/15/2012 11:02 AM CDT Pulse - - Temperature - - Respiratory Rate - - Oxygen Saturation - - Inhaled Oxygen Concentration 128.4 kg (283 lb) 08/15/2012 11:02 AM CDT Weight 160 cm (5' 3") 08/15/2012 11:02 AM CDT Height 50.13 08/15/2012 11:02 AM CDT Body Mass Index documented in this encounter Progress Notes * Phong Stephens MD - 08/15/2012 10:59 PM CDT Subjective: Ayden Odom is a [...] Prior to Visit Medication Sig Dispense Refill warfarin (COUMADIN) 5 mg Oral tablet 2 tabs daily on days 1 and 2, then 1 ta b on day 3, then repeat cycle 50 Tab 5 neomycin-polymyxin B-hydrocortisone (CORTISPORIN OTIC) 3.5-10,000-1 mg-unit/ mL-% [...] mg by mouth. 2 at hs Insulin [place], Disposable, (BD INSULIN PEN NEEDLE UF SHORT) [...] meals , at bedtime, and as needed polyethylene glycol (MIRALAX) 17 gram Oral PwPk Take 14 Packets by mouth see administration instructions. Mix with 64 oz of gatorade 14 Packet 0 promethazine (PHENERGAN) 25 mg Oral tablet Take 1 Tab by mouth every 6 hours as needed for Nausea/Emesis. 1 Tab 0 DISCONTD: amoxicillin-clavulanate (AUGMENTIN) 875-125 mg Oral tablet Take 1 Tab by mouth every 12 hours. 20 Tab 0 HPI: Ms. Odom complains of the following (by systems): URI associated symtoms: sore throat, congestion, post nasal drip, ear pressure, sinus pressure, non productive cough and recurrent x few days. see prior notes Review of Systems: ROS Denies all of the following: Headache Dizziness Chest pain Shortness of breath Bowel changes Bladder changes Pain in muscle or joints Exam/Objective: Normal Exam for Routine Visits: \\Blood pressure 110/68, pulse 64, height 5' 3" ( 1.6 m), weight 283 lb (128.368 kg), not currently . General appearance:more healthy appearing, active, alert, cooperative, [...] tive bowel sounds. Extremities: symmetrical non edematous. HEENT: congested but ears much bdetter TMJs neg. Assessment and Plan: ASSESSMENT: Encounter Diagnoses Name Primary? Acute URI Yes Hyperlipidemia DM w/o complication type II PLAN: Orders Placed This Encounter LIPID PANEL (3 MONTHS X 1) HEMOGLOBIN A1C (3 MONTHS X 1) CMP (3 MONTHS X 1) MICROALBUMIN/CREATININE RATIO, RANDOM UR (3 MONTHS X 1) predniSONE (DELTASONE) 10 mg Oral tablet fluticasone (FLONASE) 50 mcg/spray Both Nostril SpSn Appropriate medications prescribed (see detailed AVS). Appropriate [...] upper respiratory infections of u nspecified site Hyperlipidemia Other and unspecified hyperlipidemia DM w/o complication type II Type II or unspecified type diabetes me llitus without mention of complication, not stated as uncontrolled documented in this encounter
--- OUTSIDE RECORDS SUMMARY | 2019-10-21 18:19 | XMS REPORT | Encounter Summary ---
Author Author [facility] Organization [facility] Address Unknown Phone Unavailable Care Team Providers Care Machine Sewer Name Role Phone Robby Rajan CONSTANTIN Unavailable Phong Stephens MD PCP Unavailable Reason for Visit * Reason Comments Knee Pain pain and swelling left knee after twisting her knee 07/21/12 Foot Pain left foot pain Encounter Details Care Team Description Date Type Department Phong Stephens MD NO ADDRESS ON FILE Strain of left knee and leg (Primary Dx) 07/22/2012 Office Visit [facility] Primar y Care [address] [phone] Social History Date Tobacco Use Types Packs/Day [...] Signs Reading Time Taken Comments Vital Sign 120/78 07/22/2012 5:03 PM MATTRESS FILLER Blood Pressure - - Pulse - - Temperature - - Respiratory Rate - - Oxygen Saturation - - Inhaled Oxygen Concentration 132.5 kg (292 lb) 07/22/2012 5:03 PM MATTRESS FILLER Weight 160 cm (5' 3") 07/22/2012 5:03 PM MATTRESS FILLER Height 51.73 07/22/2012 5:03 PM MATTRESS FILLER Body Mass Index documented in this encounter Progress Notes * Phong Stephens MD - 07/22/2012 5:33 PM MATTRESS FILLER Subjective: Ayden Odom is a 42 y.o. [...] Refill potassium chloride SR (K-DUR) 10 mEq Oral [...] mg by mouth. 2 at hs Insulin [place], Disposable, (BD INSULIN PEN NEEDLE UF SHORT) [...] of the following (by systems): Arthritis symptoms: recent twisting injury to L knee. now with cont pain and sw elling. no catch, click or giving way. also c/o pain L foot started @ same karissa e. no specific injury Review of Systems: ROS Denies all of the following: Headache Dizziness Chest pain Shortness of breath Bowel changes Bladder changes Pain in muscle or joints Exam/Objective: Normal Exam for Routine Visits: \\Blood pressure 120/78, height 5' 3" (1.6 m), we ight 292 lb (132.45 kg). General appearance:obese and chronic unhealthy appearing, active, alert, maya ative, social, normally nourished, and in no acute distress Extremities: symmetrical Edematous. Tender L knee with minimal swelling, ligs i ntact. No crepitance or locking. Foot non specific tender. She is wt bearing Assessment and Plan: ASSESSMENT: Encounter Diagnosis Name Primary? Strain of left knee and leg Yes PLAN: No orders of the defined types were placed in this encounter. Ice / wmp Crutch walking Mri and PT if not progressively improved Appropriate medications prescribed (see detailed AVS). Appropriate patient instructions provided (see detailed AVS). Follow-up as I have indicated. Medications and options explained to include common side effects. Understanding of medications, course, diagnosis, and expectations were expressed by patient/g uardian. RESS FILLER documented in this encounter Plan of Treatment Not on filedocumented as of this encounter Visit Diagnoses Diagnosis Strain of left knee and leg - Primary Sprain and strain of unspecified site o f knee and leg documented in this encounter
--- OUTSIDE RECORDS SUMMARY | 2019-10-21 18:19 | XMS REPORT | Encounter Summary ---
Author Author [facility] Organization [facility] Address Unknown Phone Unavailable Care Team Providers Care Psych Arnp Name Role Phone Robby Rajan CONSTANTIN Unavailable Phong Stephens MD PCP Unavailable Reason for Visit * Reason Comments Medication Refill Encounter Details Care Team Description Date Type Department Phong Stephens MD NO ADDRESS ON FILE Pulmonary embolism and infarction (Prima ry Dx) 08/12/2012 Refill [facility] Primar y Care [address] [phone] Social History Date Tobacco Use [...] as of this encounter Visit Diagnoses Diagnosis Pulmonary embolism and infarction - [facility] Other pulmonary embolism and infarction documented in this encounter
--- OUTSIDE RECORDS SUMMARY | 2019-10-21 18:19 | XMS REPORT | Encounter Summary ---
Author Author [facility] Organization [facility] Address Unknown Phone Unavailable Care Team Providers Care Roll Setter Name Role Phone Robby Rajan APRN Unavailable Phong Stephens MD PCP Unavailable Reason for Visit * Auth/Cert Referred By Contact Referred To Contact Status Reason Specialty Diagnoses / Procedures [facility] Operating Room [address] [place] [address] Closed Procedures COLONOSCOPY Encounter Details Care Team Description Date Type Department DomínguezMukesh, [address] [place] [address] 08/23/2012 [facility] Encounter Reba Pre Post Op [address] [place] [address] Social History Date Tobacco Use [...] is severe or gets worse throughout day. [facility] Patient Information 2006 [employer]. * Attachments The following attachments cannot be sent through Care Everywhere.* SEDATION FOR A MEDICAL PROCEDURE: AFTER YOUR VISIT (IRISH) * COLON POLYPS: AFTER YOUR VISIT (IRISH) documented in this encounter Medications at Time [...] mouth. 2 at hs 05/18/2011 09/06/2012 Insulin [place], 1 Package 11 Disposable, (BD INSULIN PEN [...] unspecified Seizure disorder a month ago Acute NC 03/2010 CHF (congestive heart failure) Past Surgical [...] mg by mouth. 2 at hs Insulin [place], Disposable, (BD INSULIN PEN NEEDLE UF SHORT) 31 X 5/16 " M [facility] Ndle 1 Package 11 OXcarbazepine (TRILEPTAL) 150 [...] irritates and tears skin Xanax (Alprazolam) Hives [id number] pt states she is not allergic Zofran [...] by Rayray Elizalde Aok Transcriptions Incoming at 3 1:32 PM CDT * Lena-OP - Jessica [...] 12:32 PM CDT) SURGICAL Name: JERALD VELAZQUEZ [facility] : PATHOLOGY 74 Location: [facility] Sex: F Unit#: [id number] Room/Bed: [facility] PRE-6 Ordering Physician: Mukesh Domínguez D.O.A.C.O.S. RECD: 08/23/12 PROCEDURE DATE: 08/23/12-[address] [facility] [address]: Mukesh Domínguez D.O..C.O.SJose Carlos [facility] DR: ICD CODES: 211.3 PROCEDURES: [id number] LOCATION: [facility] PATIENT CSN #: [id number] [facility] MATERIAL SUBMITTED Biopsy of colon polyp at 70 centimeters. CLINICAL DIAGNOSIS: Screening colonoscopy. History of polyps. Procedure: Colonoscopy. Technical component performed at [facility], [address] [place] [address]. GROSS DESCRIPTION The specimen is labeled 70 cm polyp biopsy. Received in formalin is a piece of rojas-pink measuring 0.5x0.2x0.1 cm. Submitted in toto in one cassette. Dictated by:Tray Whipple M.D., V. TD:08/23/12 - 1331 FSWOODROWLRG MICROSCOPIC DESCRIPTION Sections reveal benign colonic mucosa. Focally, crypts are altered at the surface. Lining epithelial cells have enlarged, hyperchromatic, pseudostratified nuclei. Invasive neoplasm is not recognized. Dictated by:Tray Whipple M.D., V. TD:08/26/12 - 1322 FSGRISELDA FINAL DIAGNOSIS Biopsy of colon polyp at 70 cm: Tubular adenoma. Dictated by: Tray Whipple M.D., V. TD:08/26/12 - 6 FSHARLEYG Signed (electronic signature) Sukhi Whipple M.D. 08/26/12 1610 END OF REPORT Comment: , ,,,, Specimen Specimen of unknown material (specimen) Performing Organization Address City/[facility] Ph one Number [facility] CLIA# [id number] [place] [id number] [address] [facility] CLIA# [id number] [place], [place] [address] [facility] [address] [place] [address] * PROTIME-INR (08/23/2012 8:35 AM CDT) PROTIME 10.0 (L) 10.1 - 11.3 Sec [facility] [place] INR 0.93 (L)Comment: 2.0 - 3.0 [facility] [place] [facility] ACCT#[id number], ,,,, SERVICES - [place] Specimen Blood specimen (specimen) Performing Organization Address City/State/Zipcode Ph one Number [facility] CLIA# [id number] [place] [address] - [place]YSA [place] [address] [place] [address] LABORATORY SERVICES CLIA# [id number] [place] [address] - [facility] REBA [address] [place] [address] documented in this encounter Visit Diagnoses Not on filedocumented in this encounter
--- OUTSIDE RECORDS SUMMARY | 2019-10-21 18:19 | XMS REPORT | Encounter Summary ---
Author Author [facility] Organization [facility] Address Unknown Phone Unavailable Care Team Providers Care Validation Intern Name Role Phone Robby Rajan Мария KILLIAN Unavailable Phong Stephens MD PCP Unavailable Reason for Visit * Reason Comments Medication Refill Encounter Details Care Team Description Date Type Department Phong Stephens MD NO ADDRESS ON FILE 08/06/2012 Refill [facility] Primar y Care [address] [phone] Social History Date Tobacco [...]
--- OUTSIDE RECORDS SUMMARY | 2019-10-21 18:19 | XMS REPORT | Encounter Summary ---
Author Author [facility] Organization [facility] Address Unknown Phone Unavailable Care Team Providers Care Front Office Supervisor Name Role Phone Robby Rajan Мария KILLIAN Unavailable Phong Stephens MD PCP Unavailable Reason for Visit * Reason Comments Medication Refill Encounter Details Care Team Description Date Type Department Phong Stephens MD NO ADDRESS ON FILE 07/09/2012 Refill [facility] Primar y Care [address] [phone] Social History Date Tobacco Use [...]
--- OUTSIDE RECORDS SUMMARY | 2019-10-21 18:19 | XMS REPORT | Encounter Summary ---
Author Author [facility] Organization [facility] Address Unknown Phone Unavailable Care Team Providers Care Avid Editor Name Role Phone Franco Rajanory Мария KILLIAN Unavailable Phong Stephens MD PCP Unavailable Reason for Visit * Reason Comments Ear Drainage Gland Swelling Encounter Details Care Team Description Date Type Department Ban Pearce, BENEDICT [address] [place] [address] Infectious otitis externa (Primary Dx); Cellulitis of left external ear; Ear pain 08/01/2012 Office Visit [facility] [address] [place] [address] Social History Date Tobacco Use [...] Comments Vital Sign - - Blood Pressure 104 08/01/2012 1:23 PM AUDIOVISUAL TECHNICIAN Pulse - - Temperature 20 08/01/2012 1:23 PM AUDIOVISUAL TECHNICIAN Respiratory Rate 96% 08/01/2012 1:23 PM AUDIOVISUAL TECHNICIAN Oxygen Saturation - - Inhaled Oxygen Concentration 131.5 kg (290 lb) 08/01/2012 1:23 PM AUDIOVISUAL TECHNICIAN Weight 157.5 cm (5' 2") 08/01/2012 1:23 PM AUDIOVISUAL TECHNICIAN Height 53.04 08/01/2012 1:23 PM AUDIOVISUAL TECHNICIAN Body Mass Index documented in this encounter Patient Instructions * Patient Instructions* Ban Pearce, SOLUTIONS EXECUTIVE [employer] SALES - 08/01/2012 1:39 PM AUDIOVISUAL TECHNICIAN Briseyda Patient Instructions Swimmer's Ear: After Your Visit Your Care Instructions Swimmers ear (otitis externa) is inflammation or infection of the ear canal, the passage that leads from the outer ear to the eardrum. Any water, sand, or ot her debris that gets into the ear canal and stays there can cause swimmer's ear. Inserting cotton swabs or other items in the ear to clean it can also cause swi mmer's ear. Swimmers ear can be very painful. But if you treat the pain and infection wit h medicines, you should feel better in a few days. Follow-up care is a tamayo part of your treatment and safety. Be sure to make and g o to all appointments, and call your doctor if you are having problems. Its a lso a good idea to know your test results and keep a list of the medicines you t alcira. How can you care for yourself at home? Cleaning and care Use antibiotic drops exactly as directed by your doctor. Do not insert ear drops (other than the antibiotic ear drops) or anything els e into the ear unless your doctor has told you to. Avoid getting water in the ear until the problem clears up. Use cotton lightl y coated with petroleum jelly as an earplug. Do not use plastic earplugs. Use a office chair assembler set on low to carefully dry the ear after you shower. To ease ear pain, hold a warm washcloth against your ear. Take pain medicines exactly as directed. If the doctor gave you a prescription medicine for pain, take it as prescribe d. If you are not taking a prescription pain medicine, ask your doctor if you ca n take an vhyh-zac-bzcfeex medicine. Inserting ear drops Warm the drops to body temperature by rolling the container in your hands or placing it in a cup of warm water for a few minutes. Lie down, with your ear facing up. Place 3 to 5 drops in the ear opening. Gently wiggle the outer ear or pull th e ear up and back to help the drops get into the ear. You may find it easier to insert ear drops in a small june ear if you ho ld the child on your lap with his or her legs around your waist and head down on your knees. If possible, stay in this position for 2 to 3 minutes. When should you call for help? Call your doctor now or seek immediate medical care if: You have a new or higher fever. You have new or worse pain, swelling, warmth, or redness around or behind you r ear. You have new or increasing pus or blood draining from your ear. Watch closely for changes in your health, and be sure to contact your doctor if: You are not getting better after 2 days (48 hours). Where can you learn more? Go to www.[employer] in the Health Information search box. Enter C706 in the search box to learn more about "Swimmer's Ear: After Your Visi t." Last Revised: August 29, [id number] [employer]. Care instructions adapted under license b siddharth Rain. Brise[employer] disclaims any warranty or liability for your use of this informat ion. This information is not intended to represent the ethical and temple bel iefs of [employer]. This care instruction is for use with your licensed healthcare pr of[facility]. If you have questions about a medical condition or this instruction, always ask your healthcare professional. [employer] disclaims any warranty or liability for your use of this information. [employer] Patient Instructions Cellulitis: After Your Visit Your Care Instructions Cellulitis is a skin infection that often develops after a break in the skin fro m a scrape, cut, bite, or puncture, or after a rash. The doctor has checked you carefully, but [...] can you care for yourself at home? Take your antibiotics as directed. Do not stop taking them just because you f eel better. You need to take the full course of antibiotics. Prop up the infected area on pillows to reduce pain and swelling. Try to keep the area above the level of your heart as often as you can. Keep the skin clean and dry. Change your bandages as your doctor recommended. Take pain medicines exactly as directed. If the doctor gave you a prescription medicine for pain, take it as prescribe d. If you are not taking a prescription pain medicine, ask your doctor if you ca n take an ninn-ctm-rtrtcvi medicine. To prevent cellulitis in the future Try to prevent cuts, scrapes, or other injuries to your skin. Cellulitis most often occurs where there is a break in the skin. If you get a scrape, cut, mild burn, or bite, clean the wound with soap and w ater as soon as you can to help avoid infection. Don't use hydrogen peroxide or alcohol, which can slow healing. You may cover the wound with a thin layer of antibiotic ointment, such as erick itracin, and a nonstick bandage. Apply more ointment and replace the bandage as needed. If you have swelling in your legs (edema), support stockings and good skin ca re may help prevent leg sores and cellulitis. Take care of your feet, especially if you have diabetes or other conditions t hat increase the risk of infection. Wear shoes and socks. Do not go barefoot. If you have athlete's foot or other skin problems on your feet, talk to your doctor about how to treat them. When should you call for help? Call your doctor now or seek immediate medical care if: You have signs that your infection is getting worse, such as: Increased pain, swelling, warmth, or redness. Red streaks leading from the area. Pus draining from the area. A fever. You get a rash. Watch closely for changes in your health, and be sure to contact your doctor if: You are not getting better after 1 day (24 hours). You do not get better as expected. Where can you learn more? Go to www.[employer] in the Health Information search box. Enter X309 in the search box to learn more about "Cellulitis: After Your Visit." Last Revised: November 29, [id number] [employer]. Care instructions adapted under license b y Briseyda. [employer]anc[employer] disclaims any warranty or liability for your use of this informat ion. This information is not intended to represent the ethical and temple bel iefs of [employer]. This care instruction is for use with your licensed healthcare pr [facility]. If you have questions about a medical condition or this instruction, always ask your healthcare professional. [employer] disclaims any warranty or liability for your use of this information. OVISUAL TECHNICIAN documented in this encounter Progress Notes * Ban Pearce NP - 08/01/2012 1:52 PM AUDIOVISUAL TECHNICIAN HISTORY OF PRESENT ILLNESS Ayden Odom, a 42 y.o. female. Ear Drainage This is a new (patient complains of left ear pain, redness and drainage for 1 da y. She states the left ear had intense pressure prior to pain and drainage. ) problem. The current episode started yesterday. The problem has been gradually w orsening. Pertinent negatives include no headaches. The symptoms are relieved by nothing. She has tried a warm compress for the symptoms. The treatment provided no relief. REVIEW OF SYSTEMS Review of Systems Constitutional: Negative for fever. HENT: Positive for ear pain, facial swelling and ear discharge. Negative for hea ring loss and tinnitus. Respiratory: Negative. Cardiovascular: Negative. Skin: Left ear and left side of neck red and painful Neurological: Negative for headaches. PHYSICAL EXAM Pulse 104 | Resp 20 | Ht 5' 2" (1.575 m) | Wt 290 lb (131.543 kg) | BMI 53.04 kg /m2 | SpO2 96% Physical Exam Nursing note and vitals reviewed. Constitutional: She is oriented to person, place, and time. She is cooperative. She appears distressed. HENT: Head: Normocephalic. Right Ear: Tympanic membrane is erythematous. A middle ear effusion is present. No decreased hearing is noted. Left Ear: There is drainage, swelling and tenderness. There is mastoid tendernes s. No decreased hearing is noted. Nose: Nose normal. Mouth/Throat: Uvula is midline and oropharynx is clear and moist. Cellulitis of left external ear and canal. Unable to see TM due to tissue swelling in canal. Moderate amount of yellow odorous drainage coming from canal . Cellulitis of below left ear extending to left side of face/neck. Ear was ve ry tender to touch so minimal manipulation was done. Area of cellulitis depicted on graphic. Neck: Normal range of motion. Pulmonary/Chest: Effort normal. Musculoskeletal: Normal range of motion. Lymphadenopathy: She has cervical adenopathy. Neurological: She is alert and oriented to person, place, and time. Psychiatric: She has a normal mood and affect. ASSESSMENT and PLAN: 1. Ear pain (388.70) ketorolac (TORADOL) 30 mg/mL (1 mL) Injection Soln, KETORO LAC 30 MG/ML INJECTION 2. Cellulitis of left external ear (380.10) cefTRIAXone (ROCEPHIN) 1 gram Injec tion SolR, CEFTRIAXONE SODIUM 1 GM INJECTION, sulfamethoxazole-trimethoprim (ERICK TRIM DS) 800-160 mg Oral tablet 3. Infectious otitis externa (380.10) ofloxacin (FLOXIN) 0.3 % OT Drop Medication as directed Patient has an appointment at [address] Durbin for a recheck of l eft ear. Warm moist wash clothes as needed to area Patient stated she had plenty of pain medication at home OVISUAL TECHNICIAN documented in this encounter Plan of Treatment Not on filedocumented as of this encounter Visit Diagnoses Diagnosis Infectious otitis externa - Primary Infective otitis externa, unspecified Cellulitis of left external ear Infective otitis externa, unspecified Ear pain Otalgia, unspecified documented in this encounter
--- OUTSIDE RECORDS SUMMARY | 2019-10-21 18:19 | XMS REPORT | Encounter Summary ---
Author Author [facility] Organization [facility] Address Unknown Phone Unavailable Care Team Providers Care Weekend Anchor Name Role Phone Robby Rajan Мария KILLIAN Unavailable Phong Stephens MD PCP Unavailable Reason for Visit * Reason Comments Medication Refill Encounter Details Care Team Description Date Type Department Phong Stephens MD NO ADDRESS ON FILE Acute URI (Primary Dx) 09/23/2012 Refill [facility] [address] [phone] Social History Date Tobacco Use Types Packs/Day [...] upper respiratory infections of u nspecified site documented in this encounter
--- OUTSIDE RECORDS SUMMARY | 2019-10-21 18:19 | XMS REPORT | Encounter Summary ---
Author Author [facility] Organization [facility] Address Unknown Phone Unavailable Care Team Providers Care Sql Ssis Developer Name Role Phone Robby Rajan Мария KILLIAN Unavailable Phong Stephens MD PCP Unavailable Reason for Visit * Reason Comments Medication Refill Encounter Details Care Team Description Date Type Department Phong Stephens MD NO ADDRESS ON FILE Type II or unspecified type diabetes flori litus without mention of complication, not stated as uncontrolled (Primary Dx) 06/07/2012 Refill [facility] [address] [phone] Social History Date Tobacco Use Types Packs/Day [...]
--- OUTSIDE RECORDS SUMMARY | 2019-10-21 18:19 | XMS REPORT | Encounter Summary ---
Author Author [facility] Organization [facility] Address Unknown Phone Unavailable Care Team Providers Care Card Room Manager Name Role Phone Robby Rajan CONSTANTIN Unavailable Phong Stephens MD PCP Unavailable Reason for Visit * Reason Comments Ear Pain rech from urgent care visit Encounter Details Care Team Description Date Type Department Phong Stephens MD NO ADDRESS ON FILE Infectious otitis externa (Primary Dx); Cellulitis of external ear 08/02/2012 Office Visit [facility] [address] [address] Social History Date Tobacco Use [...] Signs Reading Time Taken Comments Vital Sign 128/70 08/02/2012 10:39 AM GEOSPATIAL INTELLIGENCE ANALYST Blood Pressure - - Pulse 36.9 C (98.4 F) 08/02/2012 10:39 AM GEOSPATIAL INTELLIGENCE ANALYST Temperature - - Respiratory Rate - - Oxygen Saturation - - Inhaled Oxygen Concentration 129.7 kg (286 lb) 08/02/2012 10:39 AM GEOSPATIAL INTELLIGENCE ANALYST Weight 152.4 cm (5') 08/02/2012 10:39 AM GEOSPATIAL INTELLIGENCE ANALYST Height 55.86 08/02/2012 10:39 AM GEOSPATIAL INTELLIGENCE ANALYST Body Mass Index documented in this encounter Progress Notes * Phong Stephens MD - 08/02/2012 8:49 PM GEOSPATIAL INTELLIGENCE ANALYST Subjective: Ayden Odom is a 42 y.o. [...] Methamphetamine abuse 305.70 Infectious otitis externa 380.10 Current Outpatient Prescriptions on File Prior to Visit Medication Sig Dispense Refill ketorolac (TORADOL) 30 mg/mL (1 mL) Injection Soln Inject 1 mL by intramuscu lar injection one time only for 1 dose. 1 mL 0 cefTRIAXone (ROCEPHIN) 1 gram Injection SolR Inject 1,000 mg by intramuscula r injection one time only for 1 dose. 1000 mg 0 sulfamethoxazole-trimethoprim (BACTRIM DS) 800-160 mg Oral tablet Take 1 Tab by mouth 2 times daily for 10 days. 20 Tab 0 ofloxacin (FLOXIN) 0.3 % OT Drop Administer 5 Drops in left ear 2 times celestino y for 10 days. 5 mL 0 potassium chloride SR (K-DUR) 10 mEq [...] (max 4 per day). 30 Tab 0 traMADol (ULTRAM) 50 mg Oral tablet Take [...] mg by mouth. 2 at hs Insulin Makanda, Disposable, (BD INSULIN PEN NEEDLE UF SHORT) [...] better today with less pain, swelling, drainage. Review of Systems: ROS Denies all of the following: Headache Dizziness Chest pain Shortness of breath Bowel changes Bladder changes Pain in muscle or joints Exam/Objective: Normal Exam for Routine Visits: \\Blood pressure 128/70, temperature 98.4 F (36 .9 C), height 5' (1.524 m), weight 286 lb (129.729 kg). General appearance: active, alert, cooperative, social, normally nourished, and in no acute distress Lungs: breath sounds equal, clear to auscultation bilaterally, no retractions, n o stridor, normal respiratory effort Heart: regular rate and rhythm, S1, S2 normal, no murmur, click, rub, gallop, or abnormal sounds. HEENT: congested, R ear neg. L ear with swelling lobe, redness and exudate fro m canal. Mild redness surronding but mild tender and less than last noc. No ab scess Assessment and Plan: ASSESSMENT: Encounter Diagnoses Name Primary? Infectious otitis externa Yes Cellulitis of external ear PLAN: Orders Placed This Encounter amoxicillin-clavulanate (AUGMENTIN) 875-125 mg Oral tablet cont floxin otic Appropriate medications prescribed (see detailed AVS). Appropriate patient instructions provided (see detailed AVS). Follow-up as I have indicated. Medications and options explained to include common side effects. Understanding of medications, course, diagnosis, and expectations were expressed by patient/g uardian. PATIAL INTELLIGENCE ANALYST documented in this encounter Plan of Treatment Not on filedocumented as of this encounter Visit Diagnoses Diagnosis Infectious otitis externa - Primary Infective otitis externa, unspecified Cellulitis of external ear Infective otitis externa, unspecified documented in this encounter
--- OUTSIDE RECORDS SUMMARY | 2019-10-21 18:19 | XMS REPORT | Encounter Summary ---
Author Author [facility] Organization [facility] Address Unknown Phone Unavailable Care Team Providers Care Radio Assembler Name Role Phone Robby Rajan CONSTANTIN Unavailable Phong Stephens MD PCP Unavailable Reason for Visit * Reason Comments Wrist Pain right Encounter Details Care Team Description Date Type Department Phong Stephens MD NO ADDRESS ON FILE Right wrist pain (Primary Dx); DM w/o complication type II 09/09/2012 Office Visit [facility] [address] [phone] Social History Date Tobacco Use [...] Signs Reading Time Taken Comments Vital Sign 100/80 09/09/2012 4:17 PM CDT Blood Pressure 60 09/09/2012 4:17 PM CDT Pulse - - Temperature - - Respiratory Rate - - Oxygen Saturation - - Inhaled Oxygen Concentration 132 kg (291 lb) 09/09/2012 4:17 PM CDT Weight 162.6 cm (5' 4") 09/09/2012 4:17 PM CDT Height 49.95 09/09/2012 4:17 PM CDT Body Mass Index documented in this encounter Progress Notes * Phong Stephens MD - 09/15/2012 6:35 PM CDT Subjective: Ayden Odom is a [...] Prior to Visit Medication Sig Dispense Refill Insulin Tyner, Disposable, (BD INSULIN PEN NEEDLE UF SHORT) 31 X 5/16 " Mi nh Ndle 1 Package 11 fluticasone (FLONASE) 50 [...] 2 L/min by inhalation daily at [facility]. ACCU-CHEK ACTIVE CARE Misc Kit by See Admin Instructions route. Before meals , at bedtime, and as needed HPI: Ms. Odom complains of the following (by systems): Diabetes Type II complaints: medication compliance: noncompliant some of the t dipak, diabetic diet compliance: noncompliant some of the time, home glucose monit oring: is performed sporadically fell recently with out stretched hand and forearm and now with pain wrist. worse with motion and pressure. Review of Systems: ROS Denies all of the following: Headache Dizziness Chest pain Shortness of breath Bowel changes Bladder changes Pain in muscle or joints Exam/Objective: Normal Exam for Routine Visits: \\Blood pressure 100/80, pulse 60, height 5' 4" ( 1.626 m), weight 291 lb (131.997 kg). General appearance: healthy appearing, active, alert, cooperative, social, sadi lly nourished, and in no acute distress Lungs: breath sounds equal, clear to auscultation bilaterally, no retractions, n o stridor, normal respiratory effort Heart: regular rate and rhythm, S1, S2 normal, no murmur, click, rub, gallop, or abnormal sounds. Abdomen: soft, non-tender. Bowel sounds normal. No masses, no organomegaly. Ac tive bowel sounds. Extremities: symmetrical non edematous. Tender wrist with sl swelling. Pain wi th ROM Assessment and Plan: ASSESSMENT: Encounter Diagnoses Name Primary? Right wrist pain Yes DM w/o complication type II PLAN: Orders Placed This Encounter XR WRIST 3+ VW RIGHT short arm splint for strain rexray if cont Appropriate medications prescribed (see detailed AVS). Appropriate patient instructions provided (see detailed AVS). Follow-up as I have indicated. Medications and options explained to include common side effects. Understanding of medications, course, diagnosis, and expectations were expressed by patient/g uardian. documented in this encounter Plan of Treatment Not on filedocumented as of this encounter Results * XR WRIST 3+ VW RIGHT (09/09/2012 5:06 PM CDT) Specimen Impressions Performed At Impression: Normal wrist. INTERFACE SYSTEM Narrative Performed At Right Wrist INTERFACE SYSTEM Clinical history: Pain. 3 views are obtained. Findings: There are no fractures or d islocations seen. No bony masses are noted. Soft tissues appear normal. Procedure Note Interface, [facility] [place] [place] [facility] Incoming Radiology Results - 09/10/2012 8:41 [...] pain - Primary Pain in joint, forearm DM w/o complication type II Type II or unspecified type diabetes me llitus without mention of complication, not stated as uncontrolled documented in this encounter
--- OUTSIDE RECORDS SUMMARY | 2019-10-21 18:19 | XMS REPORT | Encounter Summary ---
Author Author [facility] Organization [facility] Address Unknown Phone Unavailable Care Team Providers Care Sidewalk Repairer Name Role Phone Robby Rajan Мария KILLIAN Unavailable Phong Stephens MD PCP Unavailable Reason for Visit * Reason Comments Medication Refill Encounter Details Care Team Description Date Type Department Phong Stephens MD NO ADDRESS ON FILE 07/11/2012 Refill [facility] Prim[facility] Care [address] [phone] Social History Date Tobacco Use [...]
--- OUTSIDE RECORDS SUMMARY | 2019-10-21 18:20 | XMS REPORT | Encounter Summary ---
Author Author [facility] Organization [facility] Address Unknown Phone Unavailable Care Team Providers Care Ob Gyn Physician Assistant Name Role Phone Robby Rajan Мария KILLIAN Unavailable Phong Stephens MD PCP Unavailable Reason for Visit * Reason Comments Ear Pain both ears since 03/22/12, d natty Nausea Vomiting Encounter Details Care Team Description Date Type Department Reggie Ramirez MD NO ADDRESS ON FILE OM (otitis media); Acute URI; Nausea with vomiting 03/27/2012 Office Visit [facility] Primar y Care [address] [phone] Social History Date Tobacco Use Types Packs/Day [...] Signs Reading Time Taken Comments Vital Sign 108/78 03/27/2012 2:04 PM CDT Blood Pressure - - Pulse 37.4 C (99.3 F) 03/27/2012 2:04 PM CDT Temperature - - Respiratory Rate - - Oxygen Saturation - - Inhaled Oxygen Concentration 132 kg (291 lb) 03/27/2012 2:04 PM CDT Weight 158.8 cm (5' 2.5") 03/27/2012 2:04 PM CDT Height 52.38 03/27/2012 2:04 PM CDT Body Mass Index documented in this encounter Progress Notes * Jim Ramirez MD - 04/02/2012 11:15 AM CDT HISTORY OF PRESENT ILLNESS Ayden Odom, a 41 y.o. female. HPI here with cough and sore throat. Nausea with vomiting over past 2 days. Drin amisha and voiding without difficulty. No fever. REVIEW OF SYSTEMS Review of Systems Constitutional: Negative for fever, activity change, appetite change, fatigue an d unexpected weight change. HENT: Positive for congestion and sore throat. Negative for neck stiffness. Respiratory: Negative for shortness of breath. Cardiovascular: Negative for chest pain. Gastrointestinal: Positive for nausea and vomiting. Negative for abdominal pain and diarrhea. Genitourinary: Negative for menstrual problem. Musculoskeletal: Negative for arthralgias. Neurological: Negative for weakness. PHYSICAL EXAM BP 108/78 | Temp(Src) 99.3 F (37.4 C) (Tympanic) | Ht 5' 2.5" (1.588 m) | Wt 291 lb (131.997 kg) | BMI 52.38 kg/m2 Physical Exam Nursing note and vitals reviewed. Constitutional: She is oriented to person, place, and time. She appears well-dev eloped and well-nourished. overweight HENT: Head: Normocephalic. Right Ear: External ear normal. Left Ear: External ear normal. Nose: Nose normal. Red post pharynx, congestion Eyes: Conjunctivae and EOM are normal. Pupils are equal, round, and reactive to light. Neck: Normal range of motion. Neck supple. Cardiovascular: Normal rate, regular rhythm and normal heart sounds. Pulmonary/Chest: Effort normal and breath sounds normal. Abdominal: Soft. Bowel sounds are normal. She exhibits no distension and no mass . There is no tenderness. There is no rebound and no guarding. Neurological: She is alert and oriented to person, place, and time. She has norm al reflexes. Skin: Skin is warm and dry. Psychiatric: She has a normal mood and affect. Her behavior is normal. ASSESSMENT and PLAN: 1. OM (otitis media) (382.9) sultamethoxazole-trimethoprim (BACTRIM DS) 800-160 mg Oral tablet 2. Acute URI (465.9) sultamethoxazole-trimethoprim (BACTRIM DS) 800-160 mg Oral tablet 3. Nausea with vomiting (787.01) CBC WITH DIFFERENTIAL, COMPREHENSIVE METABOLIC PANEL documented in this encounter Plan of Treatment Not on filedocumented as of this encounter Results * COMPREHENSIVE METABOLIC PANEL (03/27/2012 2:38 PM CDT) GLUCOSE 92 70 - 100 mg/dl [facility] - [place] BUN 18.0 7 - 20 mg/dl [facility] - [place] CREATININE 0.99 0.6 - 1.0 mg/dl [facility] - [place] BUN/CREAT RATIO 18.2 10 - 20 [facility] - [place] GFR 66 >60 ml/min [facility] - [place] SODIUM 136 134 - 145 mmol/L [facility] - [place] POTASSIUM 4.2 3.3 - 4.8 mmol/L [facility] - [place] CHLORIDE 106 98 - 107 mmol/L [facility] - [place] CO2 20.6 (L) 22 - 31 mmol/L [facility] - [place] ANION GAP 14 4 - 20 [facility] - [place] CALCIUM 8.0 (L) 8.5 - 10.1 mg/dl [facility] [place] ALBUMIN 3.6 3.4 - 5.0 g/dl [facility] - [place] TOTAL PROTEIN 7.2 6.4 - 8.2 g/dl [facility] [place] GLOBULIN (CALC) 3.6 [facility] - [place] ALBUMIN/GLOBULI 1.0 [facility] - [place] BILIRUBIN TOTAL 0.3 <1.1 mg/dl [facility] - [place] ALKALINE 134 50 - 136 IU/L [facility]OS[facility] - [place] AST 17 10 - 40 IU/L [facility] - [place] ALT 44Comment: EUGENE-CLEMENTE BOSS 25 - 70 IU/L [facility] ACCT#[id number], ,,,, LABORATORY SERVICES - [place] Specimen Blood specimen (specimen) Performing Organization Address City/State/Zipcode Ph one Number [facility] CLIA# [id number] [place] [address] - [place] [address] [facility] CLIA# [id number] [place] [address] - [place] BR[place] [address] [place] [address] * CBC WITH DIFFERENTIAL (03/27/2012 2:38 PM CDT) [facility] Signature WBC 10.07 3.0 - 10.4 x10E3 [facility] REBA RBC 4.81 3.77 - 4.97 x10E6 [facility] HEMOGLOBIN 14.3 11.9 - 15.0 g/dL [facility] - [facility] HEMATOCRIT 43.9 (H) 34.4 - 43.6 % [facility] MCV 91.2 79 - 100 fL [facility] RE[facility] MCH 29.8 28 - 34 pg [facility] RE[facility] MCHC 32.6 31 - 35 g/dL [facility] RDW 13.1 11.5 - 15.1 % [facility] PLATELETS 210 148 - 408 x10E3 [facility] MPV 8.2 7.4 - 10.6 fL [facility] NEUTROPHILS 71.5 43 - 73 % [facility] LYMPHOCYTES 22.7 19 - 47 % [facility] MONOCYTES 4.3 3 - 9 % [facility] EOSINOPHILS 1.2 0 - 6 % [facility] BASOPHILS 0.4 0 - 1.2 % [facility] NEUTROPHIL 7.20 1.3 - 7.6 x10E3 [facility] LYMPHOCYTE 2.29 0.6 - 4.9 x10E3 [facility] MONOCYTE 0.43 0.1 - 0.9 x10E3 [facility] EOSINOPHIL 0.12 0.0 - 0.2 x10E3 [facility] RE[facility] BASOPHILS 0.04Comment: [facility]-CLE[facility] BOSS 0 - 0.1 x10E3 [facility] ACCT#[id number], ,,,, LAB[facility]AT[facility] - [facility] RE[facility] Specimen Blood specimen (specimen) Performing Organization Address City/State/Zipcode Ph one Number [facility] CLIA# [id number] [place] [address] - [place] [address] [place] [address] LABORATORY SERVICES CLIA# [id number] [place] [address] - [address] documented in this encounter Visit Diagnoses Diagnosis OM (otitis media) Unspecified otitis media Acute URI Acute upper respiratory infections of u nspecified site Nausea with vomiting documented in this encounter
--- OUTSIDE RECORDS SUMMARY | 2019-10-21 18:20 | XMS REPORT | Encounter Summary ---
Author Author [facility] Organization [facility] Address Unknown Phone Unavailable Care Team Providers Care Glassware Engraver Name Role Phone Robby Rajan CONSTANTIN Unavailable Phong Stephens MD PCP Unavailable Reason for Visit * Reason Comments Medication Refill Encounter Details Care Team Description Date Type Department Phong Stephens MD NO ADDRESS ON FILE Pulmonary embolism and infarction (Prima ry Dx) 01/08/2012 Refill [facility] Primar y Care [address] [phone] Social History Date Tobacco Use [...] Diagnoses Diagnosis Pulmonary embolism and infarction - [place] Other pulmonary embolism and infarction documented in this encounter
--- OUTSIDE RECORDS SUMMARY | 2019-10-21 18:20 | XMS REPORT | Encounter Summary ---
Author Author [facility] Organization [facility] Address Unknown Phone Unavailable Care Team Providers Care Baby Attendant Name Role Phone Robby Rajan Мария KILLIAN Unavailable Phong Stephens MD PCP Unavailable Reason for Visit * Reason Comments Medication Refill Encounter Details Care Team Description Date Type Department Phong Stephens MD NO ADDRESS ON FILE 04/22/2012 Refill [facility] Primar y Care [address] [phone] Social History Date Tobacco [...]
--- OUTSIDE RECORDS SUMMARY | 2019-10-21 18:20 | XMS REPORT | Encounter Summary ---
Author Author [facility] Organization [facility] Address Unknown Phone Unavailable Care Team Providers Care Family Support Worker Name Role Phone Robby Rajan Мария KILLIAN Unavailable Phong Stephens MD PCP Unavailable Reason for Visit * Reason Comments Medication Refill Encounter Details Care Team Description Date Type Department Phong Stephens MD NO ADDRESS ON FILE 04/10/2012 Refill [facility] Primar y Care [address] [phone] Social History Date Tobacco Use [...]
--- OUTSIDE RECORDS SUMMARY | 2019-10-21 18:20 | XMS REPORT | Encounter Summary ---
Author Author [facility] Organization [facility] Address Unknown Phone Unavailable Care Team Providers Care Sql Ssrs Ssis Developer Name Role Phone Robby Rajan CONSTANTIN Unavailable Phong Stephens MD PCP Unavailable Reason for Visit * Reason Comments Joint Pain hands, lower back, hips Headache had it for 2 day Vomiting for about a week Diarrhea for about a week Encounter Details Care Team Description Date Type Department Phong Stephens MD NO ADDRESS ON FILE Head ache; Nausea with vomiting 04/02/2012 Office Visit [facility] Primar y Care [address] [phone] Social History Date Tobacco [...] Reading Time Taken Comments Vital Sign 110/70 04/02/2012 4:17 PM CDT Blood Pressure - - Pulse 37.1 C (98.7 F) 04/02/2012 4:17 PM CDT Temperature - - Respiratory Rate - - Oxygen Saturation - - Inhaled Oxygen Concentration 131.1 kg (289 lb) 04/02/2012 4:17 PM CDT Weight 160 cm (5' 3") 04/02/2012 4:17 PM CDT Height 51.19 04/02/2012 4:17 PM CDT Body Mass Index documented in this encounter Progress Notes * Phong Stephens MD - 04/02/2012 9:38 PM CDT Subjective: Ayden dOom is a 41 y.o. female. Patient Active Problem List Diagnoses [...] Prior to Visit Medication Sig Dispense Refill sultamethoxazole-trimethoprim (BACTRIM DS) 800-160 mg Oral tablet Take 1 Tab by mouth 2 times daily. 20 Tab 1 DISCONTD: ondansetron (ZOFRAN ODT) [address] 1 Tab under tongue e very 6 hours as needed for Nausea/Emesis. 12 Tab 3 insulin glargine (LANTUS) 100 unit/mL subCUT 35 units in AM & 40 units in PM 3 mL 11 traMADol (ULTRAM) 50 mg Oral tablet Take 2 Tabs by mouth every 6 hours as ne eded for Pain. 60 Tab 0 OLANZapine (ZYPREXA ZYDIS) [address] 10 mg inside cheek 1 time d aily as needed. warfarin (COUMADIN) 5 mg Oral tablet 2 tabs daily on days 1 and 2, then 1 ta b on day 3, then repeat cycle 50 Tab 2 DISCONTD: ibuprofen (MOTRIN) 800 mg Oral tablet TAKE 1 TABLET BY MOUTH THREE TIMES DAILY WITH MEALS 100 Tab 2 SUMAtriptan (IMITREX) 100 mg Oral tablet TAKE 1 TABLET BY MOUTH DIRECTED (MAY REPEAT IN 2 HOURS, MAX OF 2 TABLETS IN 24 HOURS) 8 Tab 5 atorvastatin (LIPITOR) 20 mg Oral tablet TAKE 1 TABLET BY MOUTH DAILY LATE I N THE DAY 90 Tab 1 loratadine (CLARITIN) 10 mg Oral tablet Take 1 Tab by mouth daily. 30 Tab 11 furosemide (LASIX) 40 mg Oral tablet Take 1 Tab by mouth 2 times daily. 180 Tab 3 albuterol-ipratropium (COMBIVENT) 103-18 mcg/Actuation Inhalation Aero Take 2 Puffs by inhalation every 6 hours as needed for Shortness of Breath. 1 Inhale r 11 potassium chloride SR (K-DUR) 10 mEq Oral tablet Take 1 Tab by mouth 2 times daily. 180 Tab 3 temazepam (RESTORIL) 15 mg Oral capsule Take 15 mg by mouth. 2 at hs gabapentin (NEURONTIN) 600 mg Oral tablet Take 1 Tab by mouth 4 times daily. 120 Tab 11 Insulin [place], Disposable, (BD INSULIN PEN NEEDLE UF SHORT) [...] tablet Take 10 mg by mouth daily. OXcarbazepine (TRILEPTAL) 150 mg Oral tablet Take 150 mg by mouth one time o nly. Once in the a.m. acetaminophen (TYLENOL EXTRA STRENGTH) 500 mg Oral [...] 2 L/min by inhalation daily at [facility]. ACCU-CHEK ACTIVE CARE Misc Kit by See Admin Instructions route. Before meals , at bedtime, and as needed HPI: Ms. Odom complains of the following (by systems): several days of sxs including NVD which is now cleared and she istolerating liqu ids and increased diet. now c/o diffuse CROWELL and some assoc nausea with that. Review of Systems: ROS has all of the following chronically and some acutely: Headache Dizziness Chest pain Shortness of breath Bowel changes Bladder changes Pain in muscle or joints Exam/Objective: Normal Exam for Routine Visits: \\Blood pressure 110/70, temperature 98.7 F (37 .1 C), height 5' 3" (1.6 m), weight 289 lb (131.09 kg). General appearance: active, alert, cooperative, social, [...] sounds. Extremities: symmetrical non edematous. HEENT: congested Assessment and Plan: ASSESSMENT: Encounter Diagnoses Name Primary? Head ache Nausea with vomiting PLAN: Orders Placed This Encounter KETOROLAC 30 MG/ML INJECTION PROMETHAZINE 25 MG/ML INJECTION ondansetron (ZOFRAN ODT) 4 mg Oral TbDL ketorolac (TORADOL) 30 mg/mL (1 mL) Injection Soln promethazine (PHENERGAN) 25 mg/mL Injection Soln Appropriate medications prescribed (see detailed AVS). Appropriate patient instructions provided (see detailed AVS). Follow-up as I have indicated. Medications and options explained to include common side effects. Understanding of medications, course, diagnosis, and expectations were expressed by patient/g uardian. documented in this encounter Plan of Treatment Not on filedocumented as of this encounter Visit Diagnoses Diagnosis Head ache Headache Nausea with vomiting documented in this encounter
--- OUTSIDE RECORDS SUMMARY | 2019-10-21 18:20 | XMS REPORT | Encounter Summary ---
Author Author [facility] Organization [facility] Address Unknown Phone Unavailable Care Team Providers Care Crusher Dry Ground Mica Name Role Phone Robby Rajan CONSTANTIN Unavailable Phong Stephens MD PCP Unavailable Reason for Visit * Reason Comments Headache Encounter Details Care Team Description Date Type Department Phong Stephens MD NO ADDRESS ON FILE Malaise and fatigue; DM w/o complication type II; Chronic airway obstruction, not elsewhere classified; Methamphetamine abuse; Embolism and thrombosis of unspecified site; Neck pain 01/30/2012 Office Visit [facility] Primar y Care [address] [phone] Social History Date Tobacco Use [...] Signs Reading Time Taken Comments Vital Sign 118/64 01/30/2012 2:50 PM CDT Blood Pressure 64 01/30/2012 2:50 PM CDT Pulse - - Temperature - - Respiratory Rate - - Oxygen Saturation - - Inhaled Oxygen Concentration 136.5 kg (301 lb) 01/30/2012 2:50 PM CDT Weight 160 cm (5' 3") 01/30/2012 2:50 PM CDT Height 53.32 01/30/2012 2:50 PM CDT Body Mass Index documented in this encounter Progress Notes * Phong Stephens MD - 02/05/2012 1:03 PM CDT Subjective: Ayden Odom is a 41 y.o. female. Patient Active [...] in AM & 40 units in PM 1 Pen(s) 3 ibuprofen (MOTRIN) 800 mg Oral tablet TAKE 1 TABLET BY MOUTH THREE TIMES CATHLEEN LY WITH MEALS 100 Tab 2 SUMAtriptan (IMITREX) 100 mg Oral tablet TAKE 1 TABLET BY MOUTH DIRECTED (MAY REPEAT IN 2 HOURS, MAX OF 2 TABLETS IN 24 HOURS) 8 Tab 5 atorvastatin (LIPITOR) 20 mg Oral tablet TAKE 1 TABLET BY MOUTH DAILY LATE I N THE DAY 90 Tab 1 traMADol (ULTRAM) 50 mg Oral tablet Take 2 Tabs by mouth every 6 hours as ne eded for Pain. 60 Tab 0 loratadine (CLARITIN) 10 mg Oral tablet Take [...] 15 mg by mouth. 2 at hs hydrOXYzine pamoate (VISTARIL) 25 mg Oral capsule Take 25 mg by mouth. Twice daily gabapentin (NEURONTIN) 600 mg Oral tablet Take 1 Tab by mouth 4 times daily. 120 Tab 11 Insulin [place], Disposable, (BD INSULIN PEN NEEDLE UF SHORT) [...] Take 2 L/min by inhalation daily at [facility]. ACCU-CHEK ACTIVE CARE Misc Kit by See Admin Instructions route. Before meals , at bedtime, and as needed Component Value Date CREATININE 1.11* 12/13/2011 BUN 18.0 12/13/2011 SODIUM 134 12/13/2011 POTASSIUM 3.4 12/13/2011 CHLORIDE 100 12/13/2011 CO2 22.8 12/13/2011 GFR 58 12/13/2011 Component Value Date WBC 10.75* 06/22/2011 HEMOGLOBIN 13.9 06/22/2011 HEMATOCRIT 41.7 06/22/2011 PLATELETS 196 06/22/2011 MCV 94.9 06/22/2011 HPI: Ms. Odom complains of the following (by systems): Arthritis symptoms: diffuse arthralgias and recent increased muscular neck pain and assoc CROWELL. CROWELL is not related to trauma and no assoc neurologic changes or caitlin elinor pattern. COPD related symtoms: dyspnea, cough, wheezing and exacerbation recently. recent use meth again x1 She says trying to self medicate for CROWELL and malaise Review of Systems: ROS chronically has all of the following: Headache Dizziness Chest pain Shortness of breath Bowel changes Bladder changes Pain in muscle or joints Exam/Objective: Normal Exam for Routine Visits: \\Blood pressure 118/64, pulse 64, height 5' 3" ( 1.6 m), weight 301 lb (136.533 kg). General appearance: obese and odd smell today ?urine appearing, active, alert, cooperative, social, normally nourished, and in no acute distress Lungs: breath sounds equal, clear to auscultation bilaterally, no retractions, n o stridor, normal respiratory effort Heart: regular rate and rhythm, S1, S2 normal, no murmur, click, rub, gallop, or abnormal sounds. Abdomen: soft, non-tender. Bowel sounds normal. No masses, no organomegaly. Ac tive bowel sounds. Extremities: symmetrical non edematous. TENDER base of neck and paraspinous ms reproduces CROWELL Assessment and Plan: ASSESSMENT: Encounter Diagnoses Name Primary? Malaise and fatigue DM w/o complication type II Chronic airway obstruction, not elsewhere classified Methamphetamine abuse Embolism and thrombosis of unspecified site Neck pain PLAN: Orders Placed This Encounter XR CHEST PA AND LATERAL METHYLPREDNISOLONE ACETATE 80 MG/ML INJECTION PROTIME & INR methylPREDNISolone Acetate (DEPO-MEDROL) 80 mg/mL Injection Susp Appropriate medications prescribed (see detailed AVS). Appropriate patient instructions provided (see detailed AVS). Follow-up as I have indicated. Medications and options explained to include common side effects. Understanding of medications, course, diagnosis, and expectations were expressed by patient/g uardian. documented in this encounter Plan of Treatment Not on filedocumented as of this encounter Results * XR CHEST PA AND LATERAL (01/30/2012 3:40 PM CDT) Specimen Impressions Performed At IMPRESSION: COPD without acute abnormality identified the chest. INTERFACE SYSTEM Narrative Performed At PA and lateral chest INTERFACE SYSTEM INDICATION: Shortness of air PA and lateral views were obtained. The cardiac size the pulmonary vessels and the mediastinal structure s appear within normal limits. The lungs appear clear of acute infiltr ates and there are no pleural effusions or pneumothoraces. There is h yperexpansion of the lungs consistent with COPD. No significant ch jaswant when compared with 08/10/2010. Procedure Note Interface, [facility] Incoming Radiology Results - 01/30/2012 3:47 PM CDT PA and lateral chest INDICATION: Shortness of air PA and lateral views were obtained. The cardiac size the pulmonary vessels and the mediastinal structures appear within normal limits. The lungs appear clear of acute infiltrates and there are no pleural effusions or pneumothoraces. There is hyperexpansion of the lungs consistent with COPD. No significant change when compared with 08/10/2010. IMPRESSION IMPRESSION: COPD without acute abnormality identified the chest. Performing Organization Address [facility] Ph one Number INTERFACE SYSTEM INTERFACE SYSTEM Refer to clinic/hospital department * PROTIME-INR (01/30/2012 3:30 PM CDT) PROTIME 26.3 (H) 10.1 - 11.5 Sec [facility] - [place]YSA BR[place] INR 2.48Comment: EUGENECLEMENTE BOSS 2.0 - 3.0 [facility] ACCT#[id number], ,,,, LABORATORY SERVICES - [place]SA [place] Specimen Blood specimen (specimen) Performing Organization Address [facility] Ph one Number [facility] CLIA# [id number] [place] [address] - ALYSA [address] LABORATORY SERVICES CLIA# [id number] [place] [address] - [address] documented in this encounter Visit Diagnoses Diagnosis Malaise and fatigue Other malaise and fatigue Type II or unspecified type diabetes me llitus without mention of complication, not stated as uncontrolled Chronic airway obstruction, not elsewhe re classified Methamphetamine abuse Nondependent amphetamine or related act ing sympathomimetic abuse, unspecified Embolism and thrombosis of unspecified site Neck pain Cervicalgia documented in this encounter
--- OUTSIDE RECORDS SUMMARY | 2019-10-21 18:20 | XMS REPORT | Encounter Summary ---
Author Author [facility] Organization [facility] Address Unknown Phone Unavailable Care Team Providers Care Copier Repair Technician Name Role Phone Robby Rajan Мария KILLIAN Unavailable Phong Stephens MD PCP Unavailable Encounter Details Care Team Description Date Type Department Phong Stephens MD NO ADDRESS ON FILE 01/31/2012 Anti-coag visit [facility] Primar y Care [address] [phone] Social History Date Tobacco Use [...]
--- OUTSIDE RECORDS SUMMARY | 2019-10-21 18:20 | XMS REPORT | Encounter Summary ---
Author Author [facility] Organization [facility] Address Unknown Phone Unavailable Care Team Providers Care Dielectric Testing Machine Operator Name Role Phone Robby Rajan Мария KILLIAN Unavailable Phong Stephens MD PCP Unavailable Reason for Visit * Reason Comments Medication Refill Encounter Details Care Team Description Date Type Department Phong Stephens MD NO ADDRESS ON FILE 04/02/2012 Refill [facility] Primar y Care [address] [phone] Social History Date Tobacco Use [...]
--- OUTSIDE RECORDS SUMMARY | 2019-10-21 18:20 | XMS REPORT | Encounter Summary ---
Author Author [facility] Organization [facility] Address Unknown Phone Unavailable Care Team Providers Care Brim Flexer Name Role Phone Robby Rajan Мария KILLIAN Unavailable Phong Stephens MD PCP Unavailable Reason for Visit * Reason Comments Medication Refill Encounter Details Care Team Description Date Type Department Phong Stephens MD NO ADDRESS ON FILE Lumbago (Primary Dx) 05/06/2012 [facility] [address] [phone] Social History Date Tobacco Use Types Packs/Day [...]
--- OUTSIDE RECORDS SUMMARY | 2019-10-21 18:20 | XMS REPORT | Encounter Summary ---
Author Author [facility] Organization [facility] Address Unknown Phone Unavailable Care Team Providers Care Rehabilitation Physician Name Role Phone Robby Rajan APRN Unavailable Phong Stephens MD PCP Unavailable Encounter Details Care Team Description Date Type Department Mhcf, Lab Schedule 03/14/2012 [facility] General Encounter Laboratory Services [address] [address] Social History Date Tobacco Use [...] Before meals, at bedtime, and as needed 03/14/2012 11/26/2012 insulin glargine (LANTUS) 35 units in 3 mL 11 100 unit/mL AM & 40 units subCUTIndications: Type in PM II or unspecified type diabetes mellitus without mention of complication, not stated as uncontrolled 03/14/2012 05/06/2012 traMADol (ULTRAM) 50 mg Take 2 Tabs 60 Tab 0 Oral tabletIndications: by mouth Lumbago every 6 hours as needed for Pain. 01/08/2012 04/16/2012 warfarin (COUMADIN) 5 mg 2 tabs daily 50 Tab 2 Oral tabletIndications: on days 1 and Pulmonary embolism and 2, then 1 tab infarction on day 3, then repeat cycle 12/11/2011 04/02/2012 ibuprofen (MOTRIN) 800 mg TAKE 1 TABLET 100 Tab 2 Oral tablet BY MOUTH THREE TIMES DAILY WITH MEALS 11/06/2011 12/28/2014 SUMAtriptan (IMITREX) 100 TAKE 1 TABLET 8 Tab 5 mg Oral tablet BY MOUTH DIRECTED (MAY REPEAT IN 2 HOURS, MAX OF 2 TABLETS IN 24 HOURS) 10/24/2011 04/22/2012 atorvastatin (LIPITOR) 20 TAKE 1 TABLET 90 Tab 1 mg Oral tablet BY MOUTH DAILY LATE IN THE DAY 08/08/2011 09/23/2012 loratadine (CLARITIN) 10 Take 1 Tab by 30 Tab 11 mg Oral mouth daily. tabletIndications: Acute URI 06/15/2011 07/09/2012 furosemide (LASIX) 40 mg Take 1 Tab by 180 Tab 3 Oral tablet mouth 2 times daily. 06/15/2011 08/06/2012 albuterol-ipratropium Take 2 Puffs 1 Inhaler 11 (COMBIVENT) 103-18 by inhalation mcg/Actuation Inhalation every 6 hours Aero as needed for Shortness of Breath. 06/15/2011 07/11/2012 potassium chloride SR Take 1 Tab by 180 Tab 3 (K-DUR) 10 mEq Oral mouth 2 times tablet daily. 05/04/2013 temazepam (RESTORIL) 15 Take 15 mg by 0 mg Oral capsule mouth. 2 at hs 05/23/2011 06/07/2012 gabapentin (NEURONTIN) Take 1 Tab by 120 Tab 11 600 mg Oral mouth 4 times tabletIndications: Type daily. II or unspecified type diabetes mellitus without mention of complication, not stated as uncontrolled 05/18/2011 09/06/2012 Insulin [place], 1 Package 11 Disposable, (BD INSULIN PEN NEEDLE UF SHORT) 31 X 5/16 " [facility] NdleIndications: Type II or unspecified type diabetes mellitus without mention of complication, not stated as uncontrolled 04/06/2011 08/06/2012 ipratropium-albuterol Take 3 mL by 1 Package 3 (DUONEB) 0.5 mg-3 mg(2.5 inhalation mg base)/3 mL Inhalation every 6 hours Nebu as needed for Shortness of Breath. 04/01/2013 tiotropium (SPIRIVA) 18 Take 18 mcg 0 mcg Inhalation capsule by inhalation daily. documented as of this encounter Plan of Treatment Not on filedocumented as of this encounter Procedures Comments Procedure Name Priority Date/Time Associated Diag nosis PROTIME-INR Routine 03/14/2012 Embolism and th rombosis 5:59 PM CDT of unspecified site documented in this encounter Results * PROTIME-INR (03/14/2012 5:59 PM CDT) PROTIME 25.3 (H) 10.1 - 11.5 [facility] - ALYSA BRITTON INR 2.38Comment: CLEMENTE ROBISON 2.0 - 3.0 EUGENE ACCT#[id number], ,,,, LABORATORY SERVICES - ALYSA BRITTON Specimen Blood specimen (specimen) Performing Organization Address City/State/Zipcode Ph one Number [facility]ORY [facility] CLIA# [id number] CLEMENTE RIOJAS [address] - ALYSA BRITTON [address] [place] [address] LABORATORY SERVICES CLIA# [id number] [place]E RIOJ[place] [address] - ALYSA BRITTON [address] [place] [address] documented in this encounter Visit Diagnoses Diagnosis Embolism and thrombosis of unspecified site documented in this encounter
--- OUTSIDE RECORDS SUMMARY | 2019-10-21 18:20 | XMS REPORT | Encounter Summary ---
Author Author [facility] Organization [facility] Address Unknown Phone Unavailable Care Team Providers Care Paint Dipper Name Role Phone SatinderRobby Мария KILLIAN Unavailable Phong Stephens MD PCP Unavailable Encounter Details Care Team Description Date Type Department Reggie Ramirez MD NO ADDRESS ON FILE Mhcf, Lab Schedule 03/27/2012 [facility] General Encounter Laboratory Services [address] [address] Social History Date Tobacco Use [...] Before meals, at bedtime, and as needed 03/27/2012 04/02/2012 ondansetron (ZOFRAN ODT) Place 1 Tab 12 Tab 3 4 mg Oral TbDL under tongue every 6 hours as needed for Nausea/Emesis . 03/14/2012 11/26/2012 insulin glargine (LANTUS) 35 units [...] not stated as uncontrolled 05/18/2011 09/06/2012 Insulin [place], 1 Package 11 Disposable, (BD INSULIN PEN [...] Associated Diag nosis CBC WITH DIFFERENTIAL Routine 03/27/2012 Nausea w ith vomiting 2:38 PM CDT COMPREHENSIVE METABOLIC Routine 03/27/2012 Nausea with vomiting PANEL 2:38 PM CDT documented in this encounter Results * COMPREHENSIVE METABOLIC PANEL (03/27/2012 2:38 PM CDT) GLUCOSE 92 70 - 100 mg/dl [facility] BUN 18.0 7 - 20 mg/dl [facility] - ALYSA BRITTON CREATININE 0.99 0.6 - 1.0 mg/dl [facility] [place]SA BRITTON BUN/CREAT RATIO 18.2 10 - 20 [facility] LABORATORY SERVICES - ALYSA BRITTON GFR 66 >60 ml/min [facility] LABORATORY SERVICES - ALYSA BRITTON SODIUM 136 134 - 145 mmol/L [facility] - ALYSA BRITTON POTASSIUM 4.2 3.3 - 4.8 mmol/L [facility] - ALYSA BRITTON CHLORIDE 106 98 - 107 mmol/L [facility] - ALYSA BRITTON CO2 20.6 (L) 22 - 31 mmol/L [facility] - ALYSA BRITTON ANION GAP 14 4 - 20 [facility] LABORATORY SERVICES - ALYSA BRITTON CALCIUM 8.0 (L) 8.5 - 10.1 mg/dl [facility] - ALYSA BRITTON ALBUMIN 3.6 3.4 - 5.0 g/dl [facility] - ALYSA BRITTON TOTAL PROTEIN 7.2 6.4 - 8.2 g/dl [facility] - ALYSA BRITTON GLOBULIN (CALC) 3.6 [facility] - ALYSA BRITTON ALBUMIN/GLOBULI 1.0 [facility]AT[facility] LAB[facility]ORY SERVICES - ALYSA BRITTON BILIRUBIN TOTAL 0.3 <1.1 mg/dl [facility] LABORATORY SERVICES - ALYSA BRITTON ALKALINE 134 50 - 136 IU/L [facility] PHOSPHATASE LABORATORY SERVICES - ALYSA BRITTON AST 17 10 - 40 IU/L [facility] - ALYSA BRITTON ALT 44Comment: [facility] 25 - 70 IU/L [facility] ACCT#[id number], ,,,, LABORATORY SERVICES - ALYSA BRITTON Specimen Blood specimen (specimen) Performing Organization Address City/State/Zipcode Ph one Number [facility] LABORATORY SERVICES CLIA# [id number] [place] [address] - ALYSA BRITTON [address] [place] [address] LABORATORY SERVICES CLIA# [id number] [place] [address] - ALYSA BRITTON [address] [place] [address] * CBC WITH DIFFERENTIAL (03/27/2012 2:38 PM CDT) [facility] Signature WBC 10.07 3.0 - 10.4 x10E3 [facility] LABORATORY SERVICES - ALYSA BRITTON RBC 4.81 3.77 - 4.97 x10E6 [facility] LABORATORY SERVICES - ALYSA BRITTON HEMOGLOBIN 14.3 11.9 - 15.0 g/dL [facility] LABORATORY SERVICES - ALYSA BRITTON HEMATOCRIT 43.9 (H) 34.4 - 43.6 % [facility] LABORATORY SERVICES - ALYSA BRITTON MCV 91.2 79 - 100 fL [facility] LABORATORY SERVICES - ALYSA BRITTON MCH 29.8 28 - 34 pg [facility] LABORATORY SERVICES - ALYSA BRITTON MCHC 32.6 31 - 35 g/dL [facility] LABORATORY SERVICES - ALYSA BRITTON RDW 13.1 11.5 - 15.1 % [facility] LABORATORY SERVICES - ALYSA BRITTON PLATELETS 210 148 - 408 x10E3 [facility] LABORATORY SERVICES - ALYSA BRITTON MPV 8.2 7.4 - 10.6 fL [facility] LABORATORY SERVICES - ALYSA BRITTON NEUTROPHILS 71.5 43 - 73 % [facility] - ALYSA BRITTON LYMPHOCYTES 22.7 19 - 47 % [facility] - ALYSA BRITTON MONOCYTES 4.3 3 - 9 % [facility] - ALYSA BRITTON EOSINOPHILS 1.2 0 - 6 % [facility] - ALYSA BRITTON BASOPHILS 0.4 0 - 1.2 % [facility] - ALYSA BRITTON NEUTROPHIL 7.20 1.3 - 7.6 x10E3 [facility] - ALYSA BRITTON LYMPHOCYTE 2.29 0.6 - 4.9 x10E3 [facility] - ALYSA BRITTON MONOCYTE 0.43 0.1 - 0.9 x10E3 [facility] SERVICES - ALYSA BRITTON EOSINOPHIL 0.12 0.0 - 0.2 x10E3 [facility] ABSOLUTE LABORATORY SERVICES - ALYSA BRITTON BASOPHILS 0.04Comment: [facility]-CLEMENTE BOSS 0 - 0.1 x10E3 [facility] ABSOLUTE ACCT#[id number], ,,,, LABORATORY SERVICES - ALYSA REBA Specimen Blood specimen (specimen) Performing Organization Address City/State/Zipcode Ph one Number [facility] LABORATORY SERVICES CLIA# [id number] [place] [address] - [address] LABORATORY SERVICES CLIA# [id number] [place] [address] - [address] documented in this encounter Visit Diagnoses Diagnosis Nausea with vomiting documented in this encounter
--- OUTSIDE RECORDS SUMMARY | 2019-10-21 18:20 | XMS REPORT | Encounter Summary ---
Author Author [facility] Organization [facility] Address Unknown Phone Unavailable Care Team Providers Care Program Lead Name Role Phone Robby Rajan CONSTANTIN Unavailable Phong Stephens MD PCP Unavailable Reason for Visit * Reason Comments Medication Refill Encounter Details Care Team Description Date Type Department Phong Stephens MD NO ADDRESS ON FILE Pulmonary embolism and infarction (Prima ry Dx) 04/16/2012 Refill [facility] Primar y Care [address] [address] Social History Date Tobacco Use [...] Diagnoses Diagnosis Pulmonary embolism and infarction - [facility] Other pulmonary embolism and infarction documented in this encounter
--- OUTSIDE RECORDS SUMMARY | 2019-10-21 18:20 | XMS REPORT | Encounter Summary ---
Author Author [facility] Organization [facility] Address Unknown Phone Unavailable Care Team Providers Care Sql Report Analyst Name Role Phone Robby Rajan CONSTANTIN Unavailable Phong Stephens MD PCP Unavailable Encounter Details Care Team Description Date Type Department Phong Stephens MD NO ADDRESS ON FILE 01/30/2012 [facility] [address] [address] Social History Date Tobacco Use [...] Before meals, at bedtime, and as needed 01/08/2012 04/16/2012 warfarin (COUMADIN) 5 mg 2 tabs daily 50 Tab 2 Oral tabletIndications: on days 1 and Pulmonary embolism and 2, then 1 tab infarction on day 3, then repeat cycle 12/14/2011 03/14/2012 insulin glargine (LANTUS) 35 units in 1 Pen(s) 3 100 unit/mL subCUT AM & 40 units in PM 12/11/2011 04/02/2012 ibuprofen (MOTRIN) 800 mg TAKE [...] BY MOUTH DAILY LATE IN THE DAY 10/10/2011 03/14/2012 traMADol (ULTRAM) 50 mg Take 2 Tabs 60 Tab 0 Oral tablet by mouth every 6 hours as needed for Pain. 08/08/2011 09/23/2012 loratadine (CLARITIN) 10 Take 1 [...] not stated as uncontrolled 05/18/2011 09/06/2012 Insulin [place], 1 Package 11 Disposable, (BD INSULIN PEN NEEDLE UF SHORT) 31 X 5/16 " [facility] NdleIndications: Type II or unspecified type diabetes [...] inhalation daily. documented as of this encounter Miscellaneous Notes * Scanned Form - Aok Scanning, Him - 01/31/2012 1:28 PM CDT Electronically signed by [facility] Transcriptions Incoming at 2 1:28 PM CDT documented in this encounter Plan of Treatment Not on filedocumented as of this encounter Procedures Comments Procedure Name Priority Date/Time Associated Diag nosis XR CHEST PA AND LATERAL 2 Routine 01/30/2012 Refinery Operator Reforming Unit judy airway VW 3:40 PM CDT obstruction, not elsewhere classified documented in this encounter Results * XR [...] when compared with 08/10/2010. Procedure Note Interface, [facility]ok Incoming Radiology Results - 01/30/2012 3:47 [...] abnormality identified the chest. Performing Organization Address City/State/Zipcode Ph one Number INTERFACE SYSTEM INTERFACE SYSTEM Refer to clinic/hospital department documented in this encounter Visit Diagnoses Diagnosis Chronic airway obstruction, not elsewhe re classified documented in this encounter
--- OUTSIDE RECORDS SUMMARY | 2019-10-21 18:20 | XMS REPORT | Encounter Summary ---
Author Author [facility] Organization [facility] Address Unknown Phone Unavailable Care Team Providers Care Nursing Program Director Name Role Phone Robby Rajan APRN Unavailable Phong Stephens MD PCP Unavailable Encounter Details Care Team Description Date Type Department Mhcf, Lab Schedule 01/30/2012 [facility] General Encounter Laboratory Services [address] [address] Social History Date Tobacco [...] not stated as uncontrolled 05/18/2011 09/06/2012 Insulin [place], 1 Package 11 Disposable, (BD INSULIN PEN NEEDLE UF SHORT) 31 X 5/16 " [facility] [place] NdleIndications: Type II or unspecified type diabetes [...] Priority Date/Time Associated Diag nosis PROTIME-INR Routine 01/30/2012 Embolism and th rombosis 3:30 PM CDT of unspecified site documented in this encounter Results * PROTIME-INR (01/30/2012 3:30 PM CDT) PROTIME 26.3 (H) 10.1 - 11.[address] [facility] LABORATORY SERVICES - ALYSA BRITTON INR 2.48Comment: EUGENECLEMENTE BOSS 2.0 - 3.0 UEGENE ACCT#[id number], ,,,, LABORATORY SERVICES - ALYSA BRITTON Specimen Blood specimen (specimen) Performing Organization Address City/State/[facility] Ph one Number [facility] LABORATORY SERVICES CLIA# [id number] CLEMENTE RIOJAS [address] - ALYSA BRITTON [address] [place] [address] LABORATORY SERVICES CLIA# [id number] [place] [address] - [address] documented in this encounter Visit Diagnoses Diagnosis Embolism and thrombosis of unspecified site documented in this encounter
--- OUTSIDE RECORDS SUMMARY | 2019-10-21 18:20 | XMS REPORT | Encounter Summary ---
Author Author [facility] Organization [facility] Address Unknown Phone Unavailable Care Team Providers Care Javascript Application Developer Name Role Phone King Robby Мария KILLIAN Unavailable Phong Stephens MD PCP Unavailable Encounter Details Care Team Description Date Type Department Phong Stephens MD NO ADDRESS ON FILE 01/31/2012 Orders Only [facility] Primar Care [address] [address] Social History Date Tobacco Use [...]
--- OUTSIDE RECORDS SUMMARY | 2019-10-21 18:20 | XMS REPORT | Encounter Summary ---
Author Author [facility] Organization [facility] Address Unknown Phone Unavailable Care Team Providers Care Night Worker Name Role Phone Robby Rajan CONSTANTIN Unavailable Phong Stephens MD PCP Unavailable Reason for Visit * Reason Comments Cough Generalized Body Aches Encounter Details Care Team Description Date Type Department Phong Stephens MD NO ADDRESS ON FILE Cough (Primary Dx); Embolism and thrombosis of unspecified site; DM w/o complication type II; Lumbago 03/14/2012 Office Visit [facility] Primar y Care [address] [id number] Social History Date Tobacco Use Types Packs/Day [...] Signs Reading Time Taken Comments Vital Sign 120/86 03/14/2012 5:08 PM CDT Blood Pressure 60 03/14/2012 5:08 PM CDT Pulse - - Temperature - - Respiratory Rate - - Oxygen Saturation - - Inhaled Oxygen Concentration 132 kg (291 lb) 03/14/2012 5:08 PM CDT Weight 160 cm (5' 3") 03/14/2012 5:08 PM CDT Height 51.55 03/14/2012 5:08 PM CDT Body Mass Index documented in this encounter Progress Notes * Phong Stephens MD - 03/16/2012 4:04 PM CDT Subjective: Ayden Odom is a [...] Prior to Visit Medication Sig Dispense Refill OLANZapine (ZYPREXA ZYDIS) [address] 10 mg inside cheek 1 time d aily as needed. warfarin (COUMADIN) 5 mg Oral tablet 2 tabs daily on days 1 and 2, then 1 ta b on day 3, then repeat cycle 50 Tab 2 ibuprofen (MOTRIN) 800 mg Oral tablet TAKE [...] 4 times daily. 120 Tab 11 Insulin [place], Disposable, (BD INSULIN PEN NEEDLE UF SHORT) [...] 2 L/min by inhalation daily at be dtior. ACCU-CHEK ACTIVE CARE Misc Kit by See Admin Instructions route. Before meals , at bedtime, and as needed Component Value Date INR 2.38 03/14/2012 INR 2.48 01/30/2012 INR 1.38* 06/22/2011 PROTIME 25.3* 03/14/2012 PROTIME 26.3* 01/30/2012 PROTIME 14.0* 06/22/2011 HPI: Ms. Odom complains of the following (by systems): Diabetes Type II complaints: medication compliance: noncompliant some of the t dipak, diabetic diet compliance: noncompliant some of the time, home glucose monit oring: is performed sporadically URI associated symtoms: congestion, post nasal drip, ear pressure, sinus pressu re, non productive cough, achiness, low grade fevers and worsening x several day s. has not returned to school during illness no recurrent clots but cont coumadin and needs to do INRs reg. told her we will not cont to refill coumadin if does not do pro -x Review of Systems: ROS Denies all of the following: Headache Dizziness Chest pain Shortness of breath Bowel changes Bladder changes Pain in muscle or joints Exam/Objective: Normal Exam for Routine Visits: \\Blood pressure 120/86, pulse 60, height 5' 3" ( 1.6 m), weight 291 lb (131.997 kg). General appearance: chroninc ill appearing, active, alert, cooperative, social, normally nourished, [...] sounds. Extremities: symmetrical non edematous. HEENT: congested and nasal purulence. Assessment and Plan: ASSESSMENT: Encounter Diagnoses Name Primary? Cough Yes Embolism and thrombosis of unspecified site DM w/o complication type II Lumbago PLAN: Orders Placed This Encounter PROTIME & INR predniSONE (DELTASONE) 10 mg Oral tablet azithromycin (ZITHROMAX) 250 mg Oral tablet insulin glargine (LANTUS) 100 unit/mL subCUT traMADol (ULTRAM) 50 mg Oral tablet Appropriate medications prescribed (see detailed AVS). Appropriate patient instructions provided (see detailed AVS). Follow-up as I have indicated. Medications and options explained to include common side effects. Understanding of medications, course, diagnosis, and expectations were expressed by patient/g uardian. documented in this encounter Plan of Treatment Not on filedocumented as of this encounter Results * PROTIME-INR (03/14/2012 5:59 PM CDT) PROTIME 25.3 (H) 10.1 - 11.5 Sec [facility] LABORATORY SERVICES - ALYSA BRITTON INR 2.38Comment: RICKI,CLEMENTE 2.0 - 3.0 [id number], ,,,, LABORATORY SERVICES - [place] Specimen Blood specimen (specimen) Performing Organization Address City/State/Zipcode Ph one Number [facility] LABORATORY SERVICES CLIA# [id number] [facility] REBA [place] [address] - [address] LABORATORY SERVICES CLIA# [id number] [place] [address] - [address] documented in this encounter Visit Diagnoses Diagnosis Cough - Primary Embolism and thrombosis of unspecified site DM w/o complication type II Type II or unspecified type diabetes me llitus without mention of complication, not stated as uncontrolled Lumbago documented in this encounter
--- OUTSIDE RECORDS SUMMARY | 2019-10-21 18:20 | XMS REPORT | Encounter Summary ---
Author Author [facility] Organization [facility] Address Unknown Phone Unavailable Care Team Providers Care Science Center Display Builder Name Role Phone Robby Rajan CONSTANTIN Unavailable Phong Stephens MD PCP Unavailable Reason for Visit * Reason Comments Facial Swelling started last week Mouth Pain Dental Problem ? Encounter Details Care Team Description Date Type Department Reggie Ramirez MD NO ADDRESS ON FILE Dental abscess (Primary Dx) 05/21/2012 Office Visit [facility] Primar Care [place] [address] [place] [address] Social History Date Tobacco Use [...] Signs Reading Time Taken Comments Vital Sign 124/90 05/21/2012 11:37 AM HYPERION DEVELOPER Blood Pressure - - Pulse 37.3 C (99.1 F) 05/21/2012 11:37 AM HYPERION DEVELOPER Temperature - - Respiratory Rate - - Oxygen Saturation - - Inhaled Oxygen Concentration 133.6 kg (294 lb 8 oz) 05/21/2012 11:37 AM HYPERION DEVELOPER Weight 160 cm (5' 3") 05/21/2012 11:37 AM HYPERION DEVELOPER Height 52.17 05/21/2012 11:37 AM HYPERION DEVELOPER Body Mass Index documented in this encounter Progress Notes * Jim Ramirez MD - 05/21/2012 1:53 PM HYPERION DEVELOPER HISTORY OF PRESENT ILLNESS Ayden Odom, a 41 y.o. female. HPI marked increasing R upper molar pain, acute. Scheduled to visit with her den fede in 2 days. REVIEW OF SYSTEMS Review of Systems Constitutional: Negative for fever, activity change, appetite change, fatigue an d unexpected weight change. HENT: Positive for facial swelling and dental problem. Negative for congestion a nd neck stiffness. Respiratory: Negative for shortness of breath. Cardiovascular: Negative for chest pain. Gastrointestinal: Negative for abdominal pain. Genitourinary: Negative for menstrual problem. Musculoskeletal: Negative for arthralgias. Neurological: Negative for weakness. PHYSICAL EXAM BP 124/90 | Temp 99.1 F (37.3 C) | Ht 5' 3" (1.6 m) | Wt 294 lb 8 oz (133.58 4 kg) | BMI 52.17 kg/m2 Physical Exam Nursing note and vitals reviewed. Constitutional: She is oriented to person, place, and time. She appears well-dev eloped and well-nourished. HENT: Head: Normocephalic and atraumatic. Right Ear: External ear normal. Left Ear: External ear normal. Mouth/Throat: Oropharynx is clear and moist. Pressure sensation and pain with percussion R upper molar Eyes: Conjunctivae and EOM are normal. Pupils [...] time. Skin: Skin is warm and dry. ASSESSMENT and PLAN: 1. Dental abscess (522.5) oxyCODONE-acetaminophen (PERCOCET) 10-325 mg Oral Tab , penicillin V potassium (VEETID) 500 mg Oral tablet dental intervention RION DEVELOPER documented in this encounter Plan of Treatment Not on filedocumented as of this encounter Visit Diagnoses Diagnosis Dental abscess - Primary Periapical abscess without sinus documented in this encounter
--- OUTSIDE RECORDS SUMMARY | 2019-10-21 18:20 | XMS REPORT | Encounter Summary ---
Author Author [facility] Organization [facility] Address Unknown Phone Unavailable Care Team Providers Care Welfare Adviser Name Role Phone Robby Rajan Мария KILLIAN Unavailable Phong Stephens MD PCP Unavailable Encounter Details Care Team Description Date Type Department Phong Stephens MD NO ADDRESS ON FILE 01/31/2012 Anti-coag visit [facility] Primar y Care [address] [phone] Social History Date Tobacco [...]
--- OUTSIDE RECORDS SUMMARY | 2019-10-21 18:20 | XMS REPORT | Encounter Summary ---
Author Author [facility] Organization [facility] Address Unknown Phone Unavailable Care Team Providers Care Costume Specialist Name Role Phone Robby Rajan Мария KILLIAN Unavailable Phong Stephens MD PCP Unavailable Encounter Details Care Team Description Date Type Department Phong Stephens MD NO ADDRESS ON FILE 03/15/2012 Anti-coag visit [facility] Primar y Care [address] [phone] Social History Date Tobacco Use [...]
--- OUTSIDE RECORDS SUMMARY | 2019-10-21 18:21 | XMS REPORT | Encounter Summary ---
Author Author [facility] Organization [facility] Address Unknown Phone Unavailable Care Team Providers Care Supervisor Roller [employer] Name Role Phone Robby Rajan CONSTANTIN Unavailable Phong Stephens MD PCP Unavailable Encounter Details Care Team Description Date Type Department Phong Stephens MD NO ADDRESS ON FILE [facility], Lab Schedule 12/13/2011 [facility] General En[facility] Laboratory Services [address] [phone] Social History Date Tobacco Use [...] Before meals, at bedtime, and as needed 12/11/2011 04/02/2012 ibuprofen (MOTRIN) 800 mg TAKE [...] every 6 hours as needed for Pain. 09/25/2011 01/08/2012 warfarin (COUMADIN) 5 mg 2 tabs daily 50 Tab 2 Oral tabletIndications: on days 1 and Pulmonary embolism and 2, then 1 tab infarction on day 3, then repeat cycle 09/14/2011 12/15/2011 atorvastatin (LIPITOR) 20 Take 1 Tab by 30 Tab 5 mg Oral tablet mouth Daily LATE. 08/08/2011 09/23/2012 loratadine (CLARITIN) 10 Take 1 [...] not stated as uncontrolled 05/18/2011 09/06/2012 Insulin [place], 1 Package 11 Disposable, (BD INSULIN PEN NEEDLE UF SHORT) 31 X 5/16 " [facility] [place] NdleIndications: Type II or unspecified type diabetes mellitus without mention of complication, not stated as uncontrolled 05/18/2011 12/14/2011 insulin glargine (LANTUS) 35 units in 1 Pen(s) 3 100 unit/mL subCUT AM & 40 units in PM 04/06/2011 08/06/2012 ipratropium-albuterol Take 3 mL by 1 Package 3 (DUONEB) 0.5 mg-3 mg(2.5 inhalation mg base)/3 mL Inhalation every 6 hours Nebu as needed for Shortness of Breath. 04/01/2013 tiotropium (SPIRIVA) 18 Take 18 mcg 0 mcg Inhalation capsule by inhalation daily. documented as of this encounter Procedure Notes * Aok Scanning, [facility] - 12/25/2011 2:24 PM CDT Associated Order(s): OXCARBAZEPINE LEVEL Electronically signed by Interface, [facility] Aok Transcriptions Incoming at 2 2:24 PM CDT documented in this encounter Miscellaneous Notes * Scanned Form - Aok Scanning, [facility] - 12/14/2011 11:41 AM CDT Electronically signed by Interface, [facility] A[facility] Transcriptions Incoming at 2 11:41 AM CDT documented in this encounter Plan of Treatment Not on filedocumented as of this encounter Procedures Comments Procedure Name Priority Date/Time Associated Diag nosis MICROALBUMIN/CREATININE Routine 12/13/2011 DM w/o complication type RATIO, RANDOM UR 10:46 AM CDT II OXCARBAZEPINE LEVEL Routine 12/13/2011 Bipolar di sorder 10:38 AM CDT HEMOGLOBIN A1C Routine 12/13/2011 DM w/o complica tion type 10:38 AM CDT II LIPID PANEL Routine 12/13/2011 Hyperlipidemia 10:38 AM CDT COMPREHENSIVE METABOLIC Routine 12/13/2011 Hyperl ipidemia PANEL 10:38 AM CDT documented in this encounter Results * MICROALBUMIN/CREATININE RATIO, RANDOM UR (12/13/2011 10:46 AM CDT) MICROALBUMIN, 96.1 mg/L [employer] URINE LABORATORY SERVICES - ALYSA BR[place]TON Creatinine, 167 29 - 226 mg/dl [facility] Urine LABORATORY SERVICES - ALYSA BRITTON MICROALBUMIN/CR 57.5 (H) <30 ug/mg [facility] RATIO, UR Comment: LABORATORY UNITS OF MEASURE: ug/mg SERVICES - ALYSA BRITTON [employer] DEFINES ABNORMALITIES IN ALBUMIN EXCRETION FOLLOWS: CATEGORY RESULT (ug/mg Creatinine) NORMAL < 30 MICROALBUMINURIA 30 - 299 CLINICAL ALBUMINURIA > OR = 300 THE ADA RECOMMENDS THAT AT LEAST TWO OF THREE SPECIMENS COLLECTED WITHIN A 3-6 MONTH PERIOD BE ABNORMAL BEFORE CONSIDERING A PATIENT TO BE WITHIN A DIAGNOSTIC CATEGORY. [facility] CarlosREBAMO ACCT#[id number], ,,,, Specimen Urine specimen (specimen) Performing Organization Address City/State/[facility] [email or web address] Ph one Number [facility] CLIA# [id number] CLEMENTE RIOJAS [address] LABORATORY SERVICES CLIA# [id number] [place] [address] - [address] * LIPID PANEL (12/13/2011 10:38 AM CDT) [facility] CHOLESTEROL 261 (H) 140 - 200 mg/dl [facility] REBA TRIGLYCERIDE 379 (H) 0 - 199 mg/dl JUANPABLO Comment: LABORATORY REFERENCE RANGE - [facility] ALYSA BRITTON NORMAL LESS THAN 150 mg/dl BORDERLINE HIGH 150 - 199 mg/dl HIGH 200 - 499 mg/dl VERY HIGH GREATER THAN OR = 500 mg/dl HDL 41 29 - 89 mg/dl [facility] LDL CALCULATED 144 (H) <130 mg/dl JUANPABLO Comment: LABORATORY SERVICES - [facility] REBA RISK CATEGORY LDL GOAL High risk: <100 mg/dl CHD or CHD risk equivalents (optional goal: <70 mg/dl) (10-year risk > 20%) Moderately high risk <130 mg/dl 2+ risk factors (10-year risk 10% to 20%) Moderate risk: <130 mg/dl 2+ risk factors (10-year risk < 10%) Lower risk: <160 mg/dl 0-1 risk factor [facility] [place] ACCT#[id number], ,,,, Specimen Blood specimen (specimen) Performing Organization Address [facility] one [facility]ly [facility] LABORATORY SERVICES CLIA# [id number] [place]SA [place] [address] LABORATORY SERVICES CLIA# [id number] [place] [address] * HEMOGLOBIN A1C (12/13/2011 10:38 AM CDT) HEMOGLOBIN A1C 5.4 0 - 6.0 % [facility] LABORATORY SERVICES - ALYSA BRITTON GLUCOSE, MEAN 105Comment: [facility] [place] mg/dl [facility] ACCT#[id number], ,,,, LABORATORY SERVICES - ALYSA BRITTON Specimen Blood specimen (specimen) Performing Organization Address [facility] one [facility]ly [facility] LABORATORY SERVICES CLIA# [id number] ALYSA BRITTON [facility] 01 - [facility] REBA [address] [place] [address] LABORATORY SERVICES CLIA# [id number] [place] [address] * COMPREHENSIVE METABOLIC PANEL (12/13/2011 10:38 AM CDT) GLUCOSE 104 (H) 70 - 100 mg/dl [facility] LABORATORY SERVICES - ALYSA BRITTON BUN 18.0 7 - 20 mg/dl [facility] LABORATORY SERVICES - [facility] REBA CREATININE 1.11 (H) 0.6 - 1.0 mg/dl [facility] LABORATORY SERVICES - ALYSA BRITTON BUN/CREAT RATIO 16.2 10 - 20 [facility] LABORATORY SERVICES - ALYSA BRITTON GFR 58 >60 ml/min [facility] LABORATORY SERVICES - [facility] REBA SODIUM 134 134 - 145 mmol/L [facility] LABORATORY SERVICES - ALYSA BRITTON POTASSIUM 3.4 3.3 - 4.8 mmol/L [facility] LABORATORY SERVICES - [facility] REBA CHLORIDE 100 98 - 107 mmol/L [facility] LABORATORY SERVICES - [facility] REBA CO2 22.8 22 - 31 mmol/L [facility] LABORATORY SERVICES - [facility] REBA ANION GAP 15 4 - 20 [facility] LABORATORY SERVICES - [facility] REBA CALCIUM 8.6 8.5 - 10.1 mg/dl [facility] LABORATORY SERVICES - ALYSA BRITTON ALBUMIN 3.6 3.4 - 5.0 g/dl [facility] LABORATORY SERVICES - [facility] REBA TOTAL PROTEIN 7.5 6.4 - 8.2 g/dl [facility] LABORATORY SERVICES - [facility] REBA GLOBULIN (CALC) 3.9 [facility] LABORATORY SERVICES - [place] ALBUMIN/GLOBULI 0.9 [facility] N RATIO LABORATORY SERVICES - [facility] REBA BILIRUBIN TOTAL 0.3 <1.1 mg/dl [facility] LABORATORY SERVICES - [facility] REBA ALKALINE 128 50 - 136 IU/L [facility] PHOSPHATASE LABORATORY SERVICES - [facility] REBA AST 17 10 - 40 IU/L [facility] LABORATORY SERVICES - ALYSA BRITTON ALT 49Comment: [facility] CENTERREBAEAST[place], [place] 25 - 70 IU/L M ERCY ACCT#[id number], ,,,, LABORATORY SERVICES - [place] Specimen Blood specimen (specimen) Performing Organization Address [facility] Ph one Number [facility] LABORATORY SERVICES CLIA# [id number] [facility] [place], [place] [address] [address] LABORATORY SERVICES CLIA# [id number] [place] [address] - [address] * OXCARBAZEPINE LEVEL (12/13/2011 10:38 AM CDT) Specimen Blood specimen (specimen) Narrative Performed At This result has an attachment that is n ot available. Transcriptions 12/25/2011 2:24 PM CDT Performing Organization Address City/[facility] Ph one Number [facility] LABORATORY SERVICES CLIA# [id number] [place], [place] [address] - [place] [address] [facility] documented in this encounter Visit Diagnoses Diagnosis Bipolar disorder Bipolar disorder, unspecified Hyperlipidemia Other and unspecified hyperlipidemia Type II or unspecified type diabetes me llitus without mention of complication, not stated as uncontrolled documented in this encounter
--- OUTSIDE RECORDS SUMMARY | 2019-10-21 18:21 | XMS REPORT | Encounter Summary ---
Author Author [facility] Organization [facility] Address Unknown Phone Unavailable Care Team Providers Care Major Sales Associate Name Role Phone Robby Rajan Мария KILLIAN Unavailable Phong Stephens MD PCP Unavailable Reason for Visit * Reason Comments Medication Refill Encounter Details Care Team Description Date Type Department Phong Stephens MD NO ADDRESS ON FILE Acute URI (Primary Dx) 08/07/2011 [facility] [address] [phone] Social History Date Tobacco Use Types Packs/Day [...]
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
--- OUTSIDE RECORDS SUMMARY | 2019-10-21 18:21 | XMS REPORT | Encounter Summary ---
Author Author [facility] Organization [facility] Address Unknown Phone Unavailable Care Team Providers Care Player Services Representative Name Role Phone Robby Rajan Мария KILLIAN Unavailable Phong Stephens MD PCP Unavailable Reason for Visit * Reason Comments Medication Refill Encounter Details Care Team Description Date Type Department Phong Stephens MD NO ADDRESS ON FILE 10/24/2011 Refill [facility] Primar y Care [address] [phone] Social History Date Tobacco Use [...]
--- OUTSIDE RECORDS SUMMARY | 2019-10-21 18:21 | XMS REPORT | Encounter Summary ---
Author Author [facility] Organization [facility] Address Unknown Phone Unavailable Care Team Providers Care Kitchen Mechanic Name Role Phone Robby Rajan Мария KILLIAN Unavailable Phong Stephens MD PCP Unavailable Reason for Visit * Reason Comments Medication Refill Encounter Details Care Team Description Date Type Department Phong Stephens MD NO ADDRESS ON FILE 10/30/2011 Refill [facility] Primar y Care [address] [phone] Social History Date Tobacco Use [...]
--- OUTSIDE RECORDS SUMMARY | 2019-10-21 18:21 | XMS REPORT | Encounter Summary ---
Author Author [facility] Organization [facility] Address Unknown Phone Unavailable Care Team Providers Care Human Resources Training Manager Name Role Phone Robby Rajan CONSTANTIN Unavailable Phong Stephens MD PCP Unavailable Reason for Visit * Reason Comments Cholesterol Problem lab results Diabetes Encounter Details Care Team Description Date Type Department Phong Stephens MD NO ADDRESS ON FILE Methamphetamine abuse; DM w/o complication type II; Bipolar disorder, unspecified; Hyperlipidemia; Sleep apnea 12/15/2011 Office Visit [facility] Primar y Care [address] [address] Social History Date Tobacco Use [...] Signs Reading Time Taken Comments Vital Sign 118/60 12/15/2011 1:52 PM CDT Blood Pressure 72 12/15/2011 1:52 PM CDT Pulse - - Temperature - - Respiratory Rate - - Oxygen Saturation - - Inhaled Oxygen Concentration 141.1 kg (311 lb) 12/15/2011 1:52 PM CDT Weight 160 cm (5' 3") 12/15/2011 1:52 PM CDT Height 55.09 12/15/2011 1:52 PM CDT Body Mass Index documented in this encounter Progress Notes * Phong Stephens MD - 12/16/2011 9:15 AM CDT Subjective: Ayden Odom is a 41 [...] Prior to Visit Medication Sig Dispense Refill insulin glargine (LANTUS) 100 unit/mL subCUT 35 [...] ne eded for Pain. 60 Tab 0 warfarin (COUMADIN) 5 mg Oral tablet 2 tabs daily on days 1 and 2, then 1 ta b on day 3, then repeat cycle 50 Tab 2 loratadine (CLARITIN) 10 mg Oral tablet Take [...] 4 times daily. 120 Tab 11 Insulin [place], Disposable, (BD INSULIN PEN NEEDLE UF SHORT) [...] Take 2 L/min by inhalation daily at [facility]. ACCU-CHEK ACTIVE CARE Misc Kit by See Admin Instructions route. Before meals , at bedtime, and as needed Component Value Date CHOLESTEROL 261* 12/13/2011 CHOLESTEROL 226* 05/23/2011 CHOLESTEROL 277* 04/06/2011 HDL 41 12/13/2011 HDL 43 05/23/2011 HDL 35 04/06/2011 LDL CALCULATED 144* 12/13/2011 LDL CHOLESTEROL, DIRECT 127 05/23/2011 LDL CHOLESTEROL, DIRECT 163* 04/06/2011 LDL CHOLESTEROL, DIRECT 183* 01/06/2011 TRIGLYCERIDE 379* 12/13/2011 TRIGLYCERIDE 236* 05/23/2011 TRIGLYCERIDE 290* 04/06/2011 ALT 49 12/13/2011 AST 17 12/13/2011 Component Value Date CREATININE 1.11* 12/13/2011 BUN 18.0 12/13/2011 SODIUM 134 12/13/2011 POTASSIUM 3.4 12/13/2011 CHLORIDE 100 12/13/2011 CO2 22.8 12/13/2011 GFR 58 12/13/2011 Component Value Date ALT 49 12/13/2011 AST 17 12/13/2011 ALKALINE PHOSPHATASE 128 12/13/2011 BILIRUBIN TOTAL 0.3 12/13/2011 HPI: Ms. Odom complains of the following (by systems): Arthritis symptoms: diffuse arthralgias and chronic pain but not primary c/o. i s still using / dependent on ambulatory care nurse for cleaning house etc. Depression like symptoms: depressed mood, difficulty concentrating, fatigue and better and making plans to cont education Diabetes Type II complaints: patient is asymptomatic, is compliant with meds a nd diet; glucose monitoring is usually in normal ranges Hypertension related symtoms/issues: taking medications as instructed, no side effects of medications, no chest pain on exertion, no dyspnea on exertion, no ed darnell UTI associated symptoms: is investigating possibliy of getting indwelling dickey out admits to using meth x 5 days a few weeks ago. better now having withdrawn and is doing counseling Review of Systems: ROS Denies all of the following:as acutely changed Headache Dizziness Chest pain Shortness of breath Bowel changes Bladder changes Pain in muscle or joints Exam/Objective: Normal Exam for Routine Visits: \\Blood pressure 118/60, pulse 72, height 5' 3" ( 1.6 m), weight 311 lb (141.069 kg). General appearance:more healthy And appropriately dressed and without group of support people accompanying appearing, active, alert, cooperative, social, sadi lly [...] and Plan: ASSESSMENT: Encounter Diagnoses Name Primary? Methamphetamine abuse DM w/o complication type II Bipolar disorder, unspecified Hyperlipidemia Sleep apnea PLAN: Orders Placed This Encounter LIPID PANEL (4 MONTHS X 1) CMP (4 MONTHS X 1) HEMOGOLBIN A1C (4 MONTHS X1) Cont counseling Encouraged her improved independence. Appropriate medications prescribed (see detailed AVS). Appropriate patient instructions provided (see detailed AVS). Follow-up as I have indicated. Medications and options explained to include common side effects. Understanding of medications, course, diagnosis, and expectations were expressed by patient/g uardian. documented in this encounter Plan of Treatment Not on filedocumented as of this encounter Visit Diagnoses Diagnosis Methamphetamine abuse Nondependent amphetamine or related act ing sympathomimetic abuse, unspecified Type II or unspecified type diabetes me llitus without mention of complication, not stated as uncontrolled Bipolar disorder, unspecified Hyperlipidemia Other and unspecified hyperlipidemia Sleep apnea Unspecified sleep apnea documented in this encounter
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
--- OUTSIDE RECORDS SUMMARY | 2019-10-21 18:21 | XMS REPORT | Encounter Summary ---
Author Author [facility] Organization [facility] Address Unknown Phone Unavailable Care Team Providers Care Resident Services Coordinator Name Role Phone Robby Rajan Мария KILLIAN Unavailable Phong Stephens MD PCP Unavailable Reason for Visit * Reason Comments Medication Refill Encounter Details Care Team Description Date Type Department Phong Stephens MD NO ADDRESS ON FILE 12/11/2011 Refill [facility] Primar y Care [address] [address] Social History Date Tobacco Use [...]
--- OUTSIDE RECORDS SUMMARY | 2019-10-21 18:21 | XMS REPORT | Encounter Summary ---
Author Author [facility] Organization [facility] Address Unknown Phone Unavailable Care Team Providers Care Adoption Coordinator Name Role Phone Robby Rajan Мария KILLIAN Unavailable Phong Stephens MD PCP Unavailable Reason for Visit * Reason Comments Medication Refill Encounter Details Care Team Description Date Type Department Phong Stephens MD NO ADDRESS ON FILE 09/14/2011 Refill [facility] Primar y Care [address] [address] Social History Date Tobacco Use [...]
--- OUTSIDE RECORDS SUMMARY | 2019-10-21 18:21 | XMS REPORT | Encounter Summary ---
Author Author [facility] Organization [facility] Address Unknown Phone Unavailable Care Team Providers Care Cns Name Role Phone Robby Rajan CONSTANTIN Unavailable Phong Stephens MD PCP Unavailable Reason for Visit * Reason Comments Medication Refill pt requesting refill on war farin 5mg. request today is denied pt hasn't had a protime in over 2 months. needs proti me before refilling Encounter Details Care Team Description Date Type Department Phong Stephens MD NO ADDRESS ON FILE 08/31/2011 Refill [facility] Primar y Care [address] [address] Social History Date Tobacco Use [...]
--- OUTSIDE RECORDS SUMMARY | 2019-10-21 18:21 | XMS REPORT | Encounter Summary ---
Author Author [facility] Organization [facility] Address Unknown Phone Unavailable Care Team Providers Care Sales Compensation Analyst Name Role Phone Robby Rajan CONSTANTIN Unavailable Phong Stephens MD PCP Unavailable Reason for Visit * Reason Comments Ear Pain left Rash abd breast and rt arm Encounter Details Care Team Description Date Type Department Phong Stephens MD NO ADDRESS ON FILE Acute sinusitis; Ear infection; Dermatitis; Pulmonary embolism and infarction 09/25/2011 Office Visit [facility] Primar y Care [address] [address] Social History Date Tobacco Use [...] - - Blood Pressure - - Pulse 37.1 C (98.8 F) 09/25/2011 5:26 PM CDT Temperature - - Respiratory Rate - - Oxygen Saturation - - Inhaled Oxygen Concentration 125.2 kg (276 lb) 09/25/2011 5:26 PM CDT Weight 158.8 cm (5' 2.5") 09/25/2011 5:26 PM CDT Height 49.68 09/25/2011 5:26 PM CDT Body Mass Index documented in this encounter Progress Notes * Phong Stephens MD - 09/27/2011 9:03 PM CDT Subjective: Ayden Odom is a [...] of benzodiazepine 969.4 Needs flu shot V04.81 Current Outpatient Prescriptions on File Prior to Visit Medication Sig Dispense Refill atorvastatin (LIPITOR) 20 mg Oral tablet Take 1 Tab by mouth Daily LATE. 30 Tab 5 ibuprofen (MOTRIN) 800 mg Oral tablet Take 1 Tab by mouth 3 times daily with meals. 100 Tab 2 loratadine (CLARITIN) 10 mg Oral [...] mouth 2 times daily. 180 Tab 3 traMADol (ULTRAM) 50 mg Oral tablet Take 2 Tabs by mouth every 8 hours as ne eded for Pain. *NEW DIRECTIONS 02/27/11 MUST LAST 2 WEEKS. 60 Tab 0 temazepam (RESTORIL) 15 mg Oral capsule Take 15 mg by mouth. 2 at hs hydrOXYzine pamoate (VISTARIL) 25 mg Oral capsule Take 25 mg by mouth. Twice daily gabapentin (NEURONTIN) 600 mg Oral tablet Take 1 Tab by mouth 4 times daily. 120 Tab 11 Insulin [place], Disposable, (BD INSULIN PEN NEEDLE UF SHORT) 31 X 5/16 " [facility] Ndle 1 Package 11 insulin glargine (LANTUS) 100 unit/mL subCUT 35 units in AM & 40 units in PM 1 Pen(s) 3 OXcarbazepine (TRILEPTAL) 150 mg Oral tablet Take 300 mg by mouth daily at b edtime. ipratropium-albuterol (DUONEB) 0.5 mg-3 mg(2.5 mg base)/3 mL Inhalation Nebu Take 3 mL by inhalation every 6 hours as needed for Shortness of Breath. 1 Pac kage 3 SUMAtriptan (IMITREX) 100 mg Oral tablet Take 1 Tab by mouth see administrat ion instructions. may repeat in 2 hours; max dose 200mg in 24 hours 8 Tab 1 PARoxetine HCl (PAXIL) 10 mg Oral tablet [...] associated symtoms: sore throat, congestion, ear pressure, non productive c ough and x several days Review of Systems: ROS Denies all of the following: Headache Dizziness Chest pain Shortness of breath Bowel changes Bladder changes Pain in muscle or joints Exam/Objective: Normal Exam for Routine Visits: \\Temperature 98.8 F (37.1 C), height 5' 2.5" (1.588 m), weight 276 lb (125.193 kg). General appearance: , active, alert, cooperative, social, normally nourished, an d in no acute distress Lungs: breath sounds equal, clear to auscultation bilaterally, no retractions, n o stridor, normal respiratory effort Heart: regular rate and rhythm, S1, S2 normal, no murmur, click, rub, gallop, or abnormal sounds. Abdomen: soft, non-tender. Bowel sounds normal. No masses, no organomegaly. Ac tive bowel sounds. Extremities: symmetrical non edematous. HEENT: congested, TMs retracted and sl red. r maxilary sinus tender nOn specific but pruruitc rash chest and abd. Scattered red , raised. No vdsic les Assessment and Plan: ASSESSMENT: Encounter Diagnoses Name Primary? Acute sinusitis Ear infection Dermatitis Pulmonary embolism and infarction PLAN: Orders Placed This Encounter PROTIME & INR predniSONE (DELTASONE) 10 mg Oral tablet azithromycin (ZITHROMAX) 250 mg Oral tablet warfarin (COUMADIN) 5 mg Oral tablet if rash persists will need to consider scabies but no known exposure. Appropriate medications prescribed (see detailed AVS). Appropriate patient instructions provided (see detailed AVS). Follow-up as I have indicated. Medications and options explained to include common side effects. Understanding of medications, course, diagnosis, and expectations were expressed by patient/g uardian. documented in this encounter Plan of Treatment Not on filedocumented as of this encounter Visit Diagnoses Diagnosis Acute sinusitis Acute sinusitis, unspecified Ear infection Unspecified otitis media Dermatitis Contact dermatitis and other eczema, du e to unspecified cause Pulmonary embolism and infarction Other pulmonary embolism and infarction documented in this encounter
--- OUTSIDE RECORDS SUMMARY | 2019-10-21 18:21 | XMS REPORT | Encounter Summary ---
Author Author [facility] Organization [facility] Address Unknown Phone Unavailable Care Team Providers Care Transit Police Officer Name Role Phone Robby Rajan Мария KILLIAN Unavailable Phong Stephens MD PCP Unavailable Reason for Visit * Reason Comments Medication Refill Encounter Details Care Team Description Date Type Department Phong Stephens MD NO ADDRESS ON FILE Acute URI (Primary Dx) 08/08/2011 [facility]ill [facility] [address] [id number] Social History Date Tobacco Use Types Packs/Day [...]
--- OUTSIDE RECORDS SUMMARY | 2019-10-21 18:21 | XMS REPORT | Encounter Summary ---
Author Author [facility] Organization [facility] Address Unknown Phone Unavailable Care Team Providers Care Cue Selector Name Role Phone Robby Rajan APRN Unavailable Phong Stephens MD PCP Unavailable Encounter Details Care Team Description Date Type Department 12/08/2011 Emergency [facility] Emergency Department [address] [phone] Social History Date Tobacco Use [...] Signs Reading Time Taken Comments Vital Sign 117/82 12/08/2011 4:55 PM CDT Blood Pressure 99 12/08/2011 4:55 PM CDT Pulse 37.6 C (99.7 F) 12/08/2011 4:55 PM CDT Temperature 18 12/08/2011 4:55 PM CDT Respiratory Rate 96% 12/08/2011 4:55 PM CDT Oxygen Saturation - - Inhaled [...] Before meals, at bedtime, and as needed 11/06/2011 12/28/2014 SUMAtriptan (IMITREX) 100 TAKE 1 [...] not stated as uncontrolled 05/18/2011 09/06/2012 Insulin [place], 1 Package 11 Disposable, (BD INSULIN PEN [...] ED Notes * Ruel Gray RN - 12/08/2011 4:55 PM CDT 1655 Pt has presented to ER to have her catheter changed - pt states that her c atheter is not draining. PT has been triaged in the registration area and she i s aware of a full and busy ER - she is aware that she will be seen as soon as po ssible. documented in this encounter Plan of Treatment Not on filedocumented as of this encounter Visit Diagnoses Not on filedocumented in this encounter
--- OUTSIDE RECORDS SUMMARY | 2019-10-21 18:21 | XMS REPORT | Encounter Summary ---
Author Author [facility] Address Unknown Phone Unavailable Care Team Providers Care As400 Administrator Name Role Phone Robby Rajan APRN Unavailable Phong Stephens MD PCP Unavailable Encounter Details Care Team Description Date Type Department 12/08/2011 Emergency [facility] Emergency Department [address] [phone] Social History Date Tobacco Use [...] not stated as uncontrolled 05/18/2011 09/06/2012 Insulin [place], 1 Package 11 Disposable, (BD INSULIN PEN NEEDLE UF SHORT) 31 X 5/16 " [facility] [place]: Type II or unspecified type diabetes [...]
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
--- OUTSIDE RECORDS SUMMARY | 2019-10-21 18:21 | XMS REPORT | Encounter Summary ---
Author Author [facility] Organization [facility] Address Unknown Phone Unavailable Care Team Providers Care General Teller Name Role Phone Robby Rajan INPATIENT NURSING AIDE Unavailable Phong Stepehns MD PCP Unavailable Reason for Visit * Reason Comments Sinus Pain Facial pain and pressure Nasal Congestion Encounter Details Care Team Description Date Type Department Batsheva Morales, INPATIENT NURSING AIDE [address] [facility] [place] [address] [phone] Acute sinusitis (Primary Dx) 08/21/2011 Office Visit [address] [phone] Social History Date Tobacco [...] Signs Reading Time Taken Comments Vital Sign 126/66 08/21/2011 3:37 PM CDT Blood Pressure - - Pulse 36.3 C (97.3 F) 08/21/2011 3:37 PM CDT Temperature - - Respiratory Rate - - Oxygen Saturation - - Inhaled Oxygen Concentration 125.2 kg (276 lb) 08/21/2011 3:37 PM CDT Weight 158.8 cm (5' 2.5") 08/21/2011 3:37 PM CDT Height 49.68 08/21/2011 3:37 PM CDT Body Mass Index documented in this encounter Patient Instructions * Patient Instructions* Batsheva Morales, INPATIENT NURSING AIDE - 08/21/2011 3:51 PM CDT Medication as directed Tylenol as needed for pain Continue the claritin daily If symptoms worsen, follow up with Dr Stephens Watch your blood sugars closely Vincentian | Maltese Blancay Patient Instructions Sinusitis: After Your Visit Your Care Instructions Sinusitis is an infection of the lining of the sinus cavities in your head. Sinu sitis often follows a cold and causes pain and pressure in your head and face. Antibiotics can help cure sinusitis caused by bacteria. You should begin to feel better within a couple of days, but some symptoms may last for a month or more. If your doctor thinks that you have a bacterial infection, he or she will madalny saenz prescribe antibiotics. Follow-up care is a tamayo part of [...] to take the full course of antibiotics. Take an folz-dqc-loadfwo pain medicine, such as acetaminophen (Tylenol), ibup rofen (Advil, Motrin), or naproxen (Aleve). Read and follow all instructions on the label. Be careful when taking besr-mwv-ukzbdmv cold or flu medicines and Tylenol at the same time. Many of these medicines have acetaminophen, which is Tylenol. [employer] d the labels to make sure that you are not taking more than the recommended dose . Too much acetaminophen (Tylenol) can be harmful. Breathe warm, moist air from a steamy shower, a hot bath, or a sink filled wi th hot water. Avoid cold, dry air. Using a humidifier in your home may help. Fol low the instructions for cleaning the machine. Use saline (saltwater) nasal washes to help keep your nasal passages open and wash out mucus and bacteria. You can buy saline nose drops at a grocery store or drugstore. Or you can make your own at home by mixing teaspoon salt and teaspoon baking soda in 1 cup water (at room temperature). If you make your own, fill a bulb syringe with the solution, insert the tip into your nostril, and sq ueeze gently. Blow your nose. Put a hot, wet towel or a warm gel pack on your face 3 or 4 times a day for 5 to 10 minutes each time. Try a decongestant nasal spray like oxymetazoline (Afrin). Do not use it for more than 3 days in a row. Using it for more than 3 days can make your congestio n worse. Take a decongestant such as pseudoephedrine (Sudafed) if your doctor recommen ds it. Try a cough medicine with guaifenesin if your doctor recommends it. This can thin your mucus. If you need to blow your nose, do it gently. Forceful blowing may force thick mucus back into your sinuses. Keep both nostrils open when you blow your nose. When should you call for help? Call your doctor now or seek immediate medical care if: You have new or worse swelling or redness in your face or around your eyes. Watch closely for changes in your health, and be sure to contact your doctor if: You have a new or higher fever. You have new or worse facial pain. You are not getting better after 2 days (48 hours). The mucus from your nose becomes thicker (like pus) or has new blood in it. Where can you learn more? Go to www.[employer]id in the Health Information search box Enter I933 in the search box to learn more about "Sinusitis: After Your Visit." [phone] [employer]. Care instructions adapted under license b y [employer]. [employer] disclaims any warranty or liability for your use of this informat ion. This information is not intended to represent the ethical and jehovah's witness bel iefs of [employer]. This care instruction is for use with your licensed healthcare [facility]. If you have questions about a medical condition or this instruction, always ask your healthcare professional. [employer] disclaims any warranty or liability for your use of this information. Content Version: 9.2.846542; Last Revised: August 29, 2010 documented in this encounter Progress Notes * Batsheva Morales APRN - 08/21/2011 3:43 PM CDT HISTORY OF PRESENT ILLNESS Ayden Odom, a 41 y.o. female. Sinus Pain This is a new (Sinus pain, nasal congestion, and occasional fever x 4 days. Bl ood sugars are controlled, running 120. Last steroid shot was in April.) pro blem. The current episode started more than 2 days ago. The problem has been gra dually worsening. Maximum temperature: Subjective fever. Associated symptoms inc lude chills, congestion, sinus pressure, sore throat and cough. Pertinent negati ves include no ear pain. Nasal Congestion REVIEW OF SYSTEMS Review of Systems Constitutional: Positive for fever and chills. HENT: Positive for congestion, sore throat, rhinorrhea and sinus pressure. Negat marisela for ear pain. Green nasal drainage. Respiratory: Positive for cough. All other systems reviewed and are negative. PHYSICAL EXAM BP 126/66 | Temp(Src) 97.3 F (36.3 C) (Tympanic) | Ht 5' 2.5" (1.588 m) | Wt 276 lb (125.193 kg) | BMI 49.68 kg/m2 Physical Exam Nursing note and vitals reviewed. Constitutional: She is oriented to person, place, and time. HENT: Right Ear: Tympanic membrane normal. Nose: Mucosal edema present. Right sinus exhibits maxillary sinus tenderness and frontal sinus tenderness. Left sinus exhibits maxillary sinus tenderness and fr ontal sinus tenderness. Mouth/Throat: Posterior oropharyngeal erythema present. No oropharyngeal exudate . Left tm light pink. Right nare irritated. Neck: Neck supple. Cardiovascular: Regular rhythm. Pulmonary/Chest: Breath sounds normal. Neurological: She is alert and oriented to person, place, and time. Skin: Skin is warm and dry. Psychiatric: She has a normal mood and affect. ASSESSMENT and PLAN: 1. Acute sinusitis (461.9) dexamethasone (DECADRON) 4 mg/mL Injection Soln, DEX AMETHASONE SODIUM PHOSPHATE 4 MG/ML INJECTION, methylPREDNISolone Acetate (DEPO- MEDROL) 80 mg/mL Injection Susp, METHYLPREDNISOLONE ACETATE 80 MG/ML INJECTION, amoxicillin (AMOXIL) 500 mg Oral Tab documented in this encounter Plan of Treatment Not on filedocumented as of this encounter Visit Diagnoses Diagnosis Acute sinusitis - Primary Acute sinusitis, unspecified documented in this encounter
--- OUTSIDE RECORDS SUMMARY | 2019-10-21 18:21 | XMS REPORT | Encounter Summary ---
Author Author [facility] Organization [facility] Address Unknown Phone Unavailable Care Team Providers Care Imagery Intelligence Name Role Phone Robby Rajan Мария KILLIAN Unavailable Phong Stephens MD PCP Unavailable Reason for Visit * Reason Comments Medication Refill Encounter Details Care Team Description Date Type Department Phong Stephens MD NO ADDRESS ON FILE 10/10/[address] [facility] Primar y Care [address] [phone] Social History Date Tobacco Use [...] Telephone Encounter - Phong Stephens MD - 10/10/2011 1:47 PM CDT ok documented in this encounter Plan of Treatment Not on filedocumented as of this encounter Visit Diagnoses Not on filedocumented in this encounter
--- OUTSIDE RECORDS SUMMARY | 2019-10-21 18:21 | XMS REPORT | Encounter Summary ---
Author Author [facility] Organization [facility] Address Unknown Phone Unavailable Care Team Providers Care Software Implementation Project Manager Name Role Phone Robby Rajan Мария KILLIAN Unavailable Phong Stephens MD PCP Unavailable Reason for Visit * Reason Comments Medication Refill Encounter Details Care Team Description Date Type Department Phong Stephens MD NO ADDRESS ON FILE 10/16/2011 Refill [facility] Primar y Care [address] [phone] Social History Date Tobacco Use [...]
--- OUTSIDE RECORDS SUMMARY | 2019-10-21 18:21 | XMS REPORT | Encounter Summary ---
Author Author [facility] Organization [facility] Address Unknown Phone Unavailable Care Team Providers Care Drop Hammer Setter Up Name Role Phone Robby Rajan CONSTANTIN Unavailable Phong Stephens MD PCP Unavailable Reason for Visit * Reason Comments Medication Refill Encounter Details Care Team Description Date Type Department Phong Stephens MD NO ADDRESS ON FILE 10/10/2011 Refill [facility] Primar y Care [address] [phone] Social History Date Tobacco Use [...] encounter Miscellaneous Notes * Telephone Encounter - Brittany Apple - 10/10/2011 11:35 AM CDT Pt states she is taking an antibiotic at this time and has developed a yeast inf ection. New order for diflucan 100 mg sig: one tab daily x 7 days e-scribed to [facility]. * Telephone Encounter - Pretty Grullon - 10/10/2011 11:12 AM CDT Can ayden have refills on tramadol and if so how many can she have? documented in this encounter Plan of Treatment Not on filedocumented as of this encounter Visit Diagnoses Not on filedocumented in this encounter
--- OUTSIDE RECORDS SUMMARY | 2019-10-21 18:21 | XMS REPORT | Encounter Summary ---
Author Author [facility] Organization [facility] Address Unknown Phone Unavailable Care Team Providers Care Quality Control Representative Name Role Phone Robby Rajan APRN Unavailable Phong Stephens MD PCP Unavailable Reason for Visit * Reason Comments Medication Refill lantus Encounter Details Care Team Description Date Type Department Jessica Christian 12/14/2011 Refill [facility] Primar Care [address] [phone] Social History Date Tobacco Use [...] * Telephone Encounter - Jessica Christian - 12/14/2011 1:[address] Stephens may refill Lantus. Appt 12/15/11. documented in this encounter Plan of Treatment Not on filedocumented as of this encounter Visit Diagnoses Not on filedocumented in this encounter
--- OUTSIDE RECORDS SUMMARY | 2019-10-21 18:21 | XMS REPORT | Encounter Summary ---
Author Author [facility] Organization [facility] Address Unknown Phone Unavailable Care Team Providers Care Tortilla Maker Name Role Phone Robby Rajan Мария KILLIAN Unavailable Phong Stephens MD PCP Unavailable Reason for Visit * Reason Comments Medication Refill Encounter Details Care Team Description Date Type Department Phong Stephens MD NO ADDRESS ON FILE 11/06/2011 Refill [facility] Primar y Care [address] [phone] Social History Date Tobacco [...]
--- OUTSIDE RECORDS SUMMARY | 2019-10-21 18:21 | XMS REPORT | Encounter Summary ---
Author Author [facility] Organization [facility] Address Unknown Phone Unavailable Care Team Providers Care Pharmacy Technician Inpatient Name Role Phone Robby Rajan Мария KILLIAN Unavailable Phong Stephens MD PCP Unavailable Reason for Visit * Reason Comments Medication Refill Encounter Details Care Team Description Date Type Department Phong Stephens MD NO ADDRESS ON FILE Chest wall pain (Primary Dx) 08/21/2011 [facility] [address] [phone] Social History Date Tobacco Use Types Packs/Day [...] as of this encounter Visit Diagnoses Diagnosis Chest wall pain - Primary Painful respiration documented in this encounter
--- OUTSIDE RECORDS SUMMARY | 2019-10-21 18:22 | XMS REPORT | Encounter Summary ---
Author Author [facility] Organization [facility] Address Unknown Phone Unavailable Care Team Providers Care [employer] Math Teacher Name Role Phone Robby Rajan CONSTANTIN Unavailable Phong Stephens MD PCP Unavailable Reason for Visit * Reason Comments Nodule under left axilla Migraine Other would like flu shot Medication Refill tramadol Encounter Details Care Team Description Date Type Department Phong Stephens MD NO ADDRESS ON FILE Migraine (Primary Dx); Pain, lip; Chronic pain; Needs flu shot 06/05/2011 Office Visit [facility] Primar y Care [address] [phone] Social History Date Tobacco Use [...] Signs Reading Time Taken Comments Vital Sign 122/88 06/05/2011 11:20 AM LAB DIRECTOR Blood Pressure - - Pulse - - Temperature - - Respiratory Rate - - Oxygen Saturation - - Inhaled Oxygen Concentration 124.3 kg (274 lb) 06/05/2011 11:20 AM LAB DIRECTOR Weight 160 cm (5' 3") 06/05/2011 11:20 AM LAB DIRECTOR Height 48.54 06/05/2011 11:20 AM LAB DIRECTOR Body Mass Index documented in this encounter Progress Notes * Phong Stephens MD - 06/05/2011 8:27 PM LAB DIRECTOR Subjective: Ayden Odom is a 41 y.o. [...] Prior to Visit Medication Sig Dispense Refill ziprasidone (GEODON) 80 mg Oral Cap Take 80 mg by mouth 3 times daily. temazepam (RESTORIL) 15 mg Oral capsule Take 15 mg by mouth. 2 at hs hydrOXYzine pamoate (VISTARIL) 25 mg Oral capsule Take 25 mg by mouth. Twice daily gabapentin (NEURONTIN) 600 mg Oral tablet Take 1 Tab by mouth 4 times daily. 120 Tab 11 Insulin [place], Disposable, (BD INSULIN PEN NEEDLE UF SHORT) 31 X 5/16 " Mi sc Ndle 1 Package 11 insulin glargine (LANTUS) 100 unit/mL subCUT 35 units in AM & 40 units in PM 1 Pen(s) 3 warfarin (COUMADIN) 5 mg Oral tablet 2 tabs daily on days 1 and 2, then 1 ta b on day 3, then repeat cycle 50 Tab 2 OXcarbazepine (TRILEPTAL) 150 mg Oral tablet Take 300 mg by mouth daily at b edtime. ibuprofen (MOTRIN) 800 mg Oral tablet Take 1 Tab by mouth 3 times daily with meals. 100 Tab 1 ipratropium-albuterol (DUONEB) 0.5 mg-3 mg(2.5 mg base)/3 mL Inhalation Nebu Take 3 mL by inhalation every 6 hours as needed for Shortness of Breath. 1 Pac kage 3 SUMAtriptan (IMITREX) 100 mg Oral tablet Take 1 Tab by mouth see administrat ion instructions. may repeat in 2 hours; max dose 200mg in 24 hours 8 Tab 1 DISCONTD: traMADol (ULTRAM) 50 mg Oral tablet Take 2 Tabs by mouth every 8 h ours as needed for Pain. *NEW DIRECTIONS 02/27/11 MUST LAST 2 WEEKS. 60 Tab 0 PARoxetine HCl (PAXIL) 10 mg Oral tablet Take 10 mg by mouth daily. loratadine (CLARITIN) 10 mg Oral tablet Take 1 Tab by mouth daily. 30 Tab 3 fluticasone (FLONASE) 50 mcg/spray Both Nostril SpSn Administer 2 Sprays in each nostril daily. 1 Bottle 5 OXcarbazepine (TRILEPTAL) 150 mg Oral tablet Take 150 mg by mouth one time o nly. Once in the a.m. acetaminophen (TYLENOL EXTRA STRENGTH) 500 mg Oral tablet Take 1-2 Tabs by m outh every 6 hours as needed for Pain. 100 Tab 2 tiotropium (SPIRIVA) 18 mcg Inhalation capsule Take 18 mcg by inhalation cathleen ly. furosemide (LASIX) 40 mg Oral tablet Take 40 mg by mouth 2 times daily. albuterol-ipratropium (COMBIVENT) 103-18 mcg/Actuation Inhalation Aero Take 2 Puffs by inhalation every 6 hours as needed. metoprolol succinate ER 24 hour (TOPROL XL) 100 mg Oral tablet Take 100 mg b y mouth daily. potassium chloride SR (K-DUR) 10 mEq Oral tablet Take 1 Tab by mouth 2 times daily. 60 Tab 11 levalbuterol HFA (XOPENEX HFA) 45 mcg/Actuation Inhalation HFAA Take 2 Puffs by inhalation every 6 hours. 1 Inhaler 5 topiramate (TOPAMAX) 100 mg Oral tablet Take 1 Tab by mouth 2 times daily. 60 Tab 5 Oxygen-Air Delivery Systems Misc Leisa Take 2 L/min by inhalation daily at be dtiaz. ACCU-CHEK ACTIVE CARE Misc Kit by See Admin Instructions route. Before meals , at bedtime, and as needed HPI: Ms. Odom complains of the following (by systems): 2-3 day recurrent typical migrain with frontal Drake, photo and phono intolerance. is out of imitrex. also nauseated with this. Review of Systems: ROS Denies all of the following: Headache Dizziness Chest pain Shortness of breath Bowel changes Bladder changes Pain in muscle or joints Exam/Objective: Normal Exam for Routine Visits: \\Blood pressure 122/88, height 5' 3" (1.6 m), we ight 274 lb (124.286 kg). General appearance: healthy appearing, active, alert, [...] tive bowel sounds. Extremities: symmetrical non edematous. HEENT/NEURO: compatible with migrain Assessment and Plan: ASSESSMENT: Encounter Diagnoses Name Primary? Migraine Yes Pain, lip Chronic pain Needs flu shot PLAN: Orders Placed This Encounter KETOROLAC 30 MG/ML INJECTION PROMETHAZINE 25 MG/ML INJECTION INFLUENZA VACCINE SPLIT 3+YEARS IM (ADULT) ketorolac (TORADOL) 30 mg/mL (1 mL) Injection Soln promethazine (PHENERGAN) 25 mg/mL Injection Soln traMADol (ULTRAM) 50 mg Oral tablet Appropriate medications prescribed (see detailed AVS). Appropriate patient instructions provided (see detailed AVS). Follow-up as I have indicated. Medications and options explained to include common side effects. Understanding of medications, course, diagnosis, and expectations were expressed by patient/g uardian. DIRECTOR documented in this encounter Plan of Treatment Not on filedocumented as of this encounter Visit Diagnoses Diagnosis Migraine - Primary Migraine, unspecified, without mention of intractable migraine without mention of status migrainosus Pain, lip Diseases of lips Chronic pain Other chronic pain Needs flu shot Need for prophylactic vaccination and i noculation against influenza documented in this encounter
--- OUTSIDE RECORDS SUMMARY | 2019-10-21 18:22 | XMS REPORT | Encounter Summary ---
Author Author [facility] Organization [facility] Address Unknown Phone Unavailable Care Team Providers Care Financial Legal Assistant Name Role Phone Robby Rajan Мария KILLIAN Unavailable Phong Stephens MD PCP Unavailable Reason for Visit * Reason Comments Medication Refill Encounter Details Care Team Description Date Type Department Phong Stephens MD NO ADDRESS ON FILE 06/15/2011 Refill [facility] Primar y Care [address] [phone] Social History Date Tobacco Use [...]
--- OUTSIDE RECORDS SUMMARY | 2019-10-21 18:22 | XMS REPORT | Encounter Summary ---
Author Author [facility] Organization [facility] Address Unknown Phone Unavailable Care Team Providers Care Medical Apparatus Model Maker Name Role Phone Robby Rajan Мария KILLIAN Unavailable Phong Stephens MD PCP Unavailable Reason for Visit * Reason Comments Medication Refill Encounter Details Care Team Description Date Type Department Phong Stephens MD NO ADDRESS ON FILE Chest wall pain (Primary Dx) 06/13/2011 Refill [facility] Care [address] [phone] Social History Date Tobacco Use Types Packs/Day [...]
--- OUTSIDE RECORDS SUMMARY | 2019-10-21 18:22 | XMS REPORT | Encounter Summary ---
Author Author [facility] Organization [facility] Address Unknown Phone Unavailable Care Team Providers Care Broach Grinder Name Role Phone Robby Rajan CONSTANTIN Unavailable Phong Stephens MD PCP Unavailable Encounter Details Care Team Description Date Type Department Phong Stephens MD NO ADDRESS ON FILE [facility], Lab Schedule 05/23/2011 Hospital [facility] General Encounter Laboratory Services [address] [phone] Social History Date Tobacco Use [...] Before meals, at bedtime, and as needed 05/04/2013 temazepam (RESTORIL) 15 Take 15 mg by 0 mg Oral capsule mouth. 2 at hs 05/23/2011 06/07/2012 gabapentin (NEURONTIN) Take 1 Tab by 120 Tab 11 600 mg Oral mouth 4 times tabletIndications: Type daily. II or unspecified type diabetes mellitus without mention of complication, not stated as uncontrolled 05/18/2011 09/06/2012 Insulin [place], 1 Package 11 Disposable, (BD INSULIN PEN NEEDLE UF SHORT) 31 X 10/17 " [facility] NdleIndications: Type II or unspecified type diabetes mellitus without mention of complication, not stated as uncontrolled 05/18/2011 12/14/2011 insulin glargine (LANTUS) 35 units in 1 Pen(s) 3 100 unit/mL subCUT AM & 40 units in PM 05/12/2011 09/25/2011 warfarin (COUMADIN) 5 mg 2 tabs daily 50 Tab 2 Oral tablet on days 1 and 2, then 1 tab on day 3, then repeat cycle 04/19/2011 08/21/2011 ibuprofen (MOTRIN) 800 mg Take 1 Tab by 100 Tab 1 Oral tabletIndications: mouth 3 times Chest wall pain daily with meals. 04/06/2011 08/06/2012 ipratropium-albuterol Take 3 mL by 1 Package 3 (DUONEB) 0.5 mg-3 mg(2.5 inhalation mg base)/3 mL Inhalation every 6 hours Nebu as needed for Shortness of Breath. 03/31/2011 10/30/2011 SUMAtriptan (IMITREX) 100 Take 1 Tab by 8 Tab 1 mg Oral mouth see tabletIndications: administratio Migraine n instructions. may repeat in 2 hours; max dose 200mg in 24 hours 03/31/2011 06/05/2011 traMADol (ULTRAM) 50 mg Take 2 Tabs 60 Tab 0 Oral tabletIndications: by mouth Pain, lip, Chronic pain every 8 hours as needed for Pain. *NEW DIRECTIONS 02/27/11 MUST LAST 2 WEEKS. 03/16/2011 08/07/2011 loratadine (CLARITIN) 10 Take 1 Tab by 30 Tab 3 mg Oral mouth daily. tabletIndications: Acute URI 04/01/2013 tiotropium (SPIRIVA) 18 Take 18 mcg 0 mcg Inhalation capsule by inhalation daily. 06/13/2010 06/15/2011 furosemide (LASIX) 40 mg Take 40 mg by 0 Oral tablet mouth 2 times daily. 08/10/2010 06/15/2011 albuterol-ipratropium Take 2 Puffs 0 (COMBIVENT) 103-18 by inhalation mcg/Actuation Inhalation every 6 hours Aero as needed. 06/13/2010 06/15/2011 potassium chloride SR Take 1 Tab by 60 Tab 11 (K-DUR) 10 mEq Oral mouth 2 times tablet daily. documented as of this encounter Procedure Notes * Aok Scanning, [facility] - 05/29/2011 2:41 PM WASH OIL PUMP OPERATOR Associated Order(s): OXCARBAZEPINE LEVEL Electronically signed by Interface, [facility] Aok Transcriptions Incoming at 1 2:41 PM WASH OIL PUMP OPERATOR documented in this encounter Miscellaneous Notes * Scanned Form - Aok Scanning, [facility] - 05/24/2011 12:57 PM WASH OIL PUMP OPERATOR Electronically signed by Interface, [facility] Aok Transcriptions Incoming at 1 12:57 PM WASH OIL PUMP OPERATOR documented in this encounter Plan of Treatment Not on filedocumented as of this encounter Procedures Comments Procedure Name Priority Date/Time Associated Diag nosis OXCARBAZEPINE LEVEL Routine 05/23/2011 Bipolar af fective 10:18 AM WASH OIL PUMP OPERATOR disorder, mixed HEMOGLOBIN A1C Stat 05/23/2011 DM w/o complica tion type 10:18 AM WASH OIL PUMP OPERATOR II LIPID PANEL Stat 05/23/2011 Hyperlipidemia 10:18 AM WASH OIL PUMP OPERATOR COMPREHENSIVE METABOLIC Stat 05/23/2011 Hyperl ipidemia PANEL 10:18 AM WASH OIL PUMP OPERATOR documented in this encounter Results * OXCARBAZEPINE LEVEL (05/23/2011 10:18 AM WASH OIL PUMP OPERATOR) Specimen Blood specimen (specimen) Narrative Performed At This result has an attachment that is n ot available. Transcriptions 05/29/2011 2:41 PM WASH OIL PUMP OPERATOR Performing Organization Address City/State/Zipcode Ph one Number [facility] CLIA# [id number] [place], [place] [address] - ALYSA BRITTON [address] [place] [address] * LIPID PANEL (05/23/2011 10:18 AM WASH OIL PUMP OPERATOR) CHOLESTEROL 226 (H) 140 - 200 mg/dl [facility] ALYSA REBA [facility] TRIGLYCERIDE 236 (H) 0 - 199 mg/dl [facility] Comment: [facility]ATT REFERENCE RANGE - REBA LUA TRIGLYCERIDES NORMAL LESS THAN 150 mg/dl BORDERLINE HIGH 150 - 199 mg/dl HIGH 200 - 499 mg/dl VERY HIGH GREATER THAN OR = 500 mg/dl HDL 43 29 - 89 mg/dl [facility] ALYSA BRITTON LAB LDL 127 <130 mg/dl [facility] CHOLESTEROL, Comment: [facility] W[facility] DIRECT RE[facility] LAB RISK CATEGORY LDL GOAL High risk: <100 mg/dl CHD or CHD risk equivalents (optional goal: <70 mg/dl) (10-year risk > 20%) Moderately high risk <130 mg/dl 2+ risk factors (10-year risk 10% to 20%) Moderate risk: <130 mg/dl 2+ risk factors (10-year risk < 10%) Lower risk: <160 mg/dl 0-1 risk factor CLEMENTE ROBISON ACCT#[id number], ,,,, Specimen Blood specimen (specimen) Performing Organization Address [facility]/State/[facility] one Number [facility] CLIA# [id number] CLEMENTE RIOJAS [phone] - ALYSA BRITTON [address] [place] [address] [place] CLIA# [id number] Milly RIOJAS S [address] [facility] [address] [place] [address] * HEMOGLOBIN A1C (05/23/2011 10:18 AM WASH OIL PUMP OPERATOR) [facility] HEMOGLOBIN A1C 5.3 0 - 6.0 % [facility] ALYSA BRITTON LAB GLUCOSE, MEAN 102Comment: [facility] mg[facility] BLOOD ACCT#[id number], ,,,, CENTER ALYSA BRITTON LAB Specimen Blood specimen (specimen) Performing Organization Address City/State/Zipcode Ph one Number [facility] CLIA# [id number] CLEMENTE RIOJAS [address] - ALYSA BRITTON [address] [place] [address] [place] CLIA# [id number] Milly RIOJAS [id number] [facility] [address] [place] [address] * COMPREHENSIVE METABOLIC PANEL (05/23/2011 10:18 AM WASH OIL PUMP OPERATOR) [facility] GLUCOSE 95 70 - 100 mg/dl [facility] ALYSA [facility] BUN 21.0 (H) 7 - 20 mg/dl [facility] ALYSA BRITTON LAB CREATININE 0.94 0.6 - 1.0 mg/dl [facility] ALYSA BRITTON LAB BUN/CREAT RATIO 22.3 (H) 10 - 20 [facility] ALYSA BRITTON LAB GFR 71 >60 ml/min [facility] ALYSA BRITTON [facility] SODIUM 137 134 - 145 mmol/L [facility] ALYSA BRITTON LAB POTASSIUM 4.1 3.3 - 4.8 mmol/L [facility] ALYSA BRITTON LAB CHLORIDE 106 98 - 107 mmol/L [facility] ALYSA BRITTON [facility] CO2 21.9 (L) 22 - 31 mmol/L [facility] ALYSA BRITTON [facility] ANION GAP 13 4 - 20 [facility] ALYSA BRITTON [facility] CALCIUM 8.3 (L) 8.5 - 10.1 mg/dl [facility] ALYSA BRITTON LAB ALBUMIN 3.5 3.4 - 5.0 g/dl [facility] ALYSA BRITTON [facility] TOTAL PROTEIN 7.0 6.4 - 8.2 g/dl [facility] ALYSA BRITTON [facility] GLOBULIN (CALC) 3.5 [facility] ALYSA BRITTON LAB ALBUMIN/GLOBULI 1.0 [facility] N RATIO FITHIAN ALYSA BRITTON LAB BILIRUBIN TOTAL 0.2 <1.1 mg/dl [facility] ALYSA BRITTON LAB ALKALINE 113 50 - 136 IU/L [facility] PHOSPHATASE FITHIAN ALYSA BRITTON LAB AST 12 10 - 40 IU/L [facility] ALYSA BRITTON LAB ALT 39Comment: [facility] BOSS 25 - 70 IU/L [facility] ACCT#[id number], ,,,, CENTER ALYSA BRITTON LAB Specimen Blood specimen (specimen) Performing Organization Address City/State/Zipcode Ph one Number [facility] CLIA# [id number] CLEMENTE RIOJAS [address] - ALYSA BRITTON [address] [facility] CLIA# [id number] Milly RIOJAS S [address] [facility] [address] [facility] documented in this encounter Visit Diagnoses Diagnosis Hyperlipidemia Other and unspecified hyperlipidemia Type II or unspecified type diabetes me llitus without mention of complication, not stated as uncontrolled Bipolar affective disorder, mixed Bipolar I disorder, most recent episode (or current) mixed, unspecified documented in this encounter
--- OUTSIDE RECORDS SUMMARY | 2019-10-21 18:22 | XMS REPORT | Encounter Summary ---
Author Author [facility] Organization [facility] Address Unknown Phone Unavailable Care Team Providers Care Spray Worker Name Role Phone Robby Rajan CONSTANTIN Unavailable Phong Stephens MD PCP Unavailable Reason for Visit * Reason Comments Diabetes Encounter Details Care Team Description Date Type Department Phong Stephens MD NO ADDRESS ON FILE DM w/o complication type II; Bipolar disorder, unspecified; Hyperlipidemia 05/23/2011 Office Visit [facility] Care [address] [address] Social History Date Tobacco Use [...] Signs Reading Time Taken Comments Vital Sign 124/76 05/23/2011 11:31 AM PIPE CREW FOREMAN Blood Pressure 60 05/23/2011 11:31 AM PIPE CREW FOREMAN Pulse - - Temperature - - Respiratory Rate - - Oxygen Saturation - - Inhaled Oxygen Concentration 124.7 kg (275 lb) 05/23/2011 11:31 AM PIPE CREW FOREMAN Weight 158.8 cm (5' 2.5") 05/23/2011 11:31 AM PIPE CREW FOREMAN Height 49.5 05/23/2011 11:31 AM PIPE CREW FOREMAN Body Mass Index documented in this encounter Progress Notes * Phong Stephens MD - 05/23/2011 12:02 PM PIPE CREW FOREMAN Subjective: Ayden Odom is a 40 y.o. female. Patient Active Problem List Diagnoses [...] Suicidal ideation V62.84 Overdose of benzodiazepine 969.4 Current Outpatient Prescriptions on File Prior to Visit Medication Sig Dispense Refill Insulin Ingomar, Disposable, (BD INSULIN PEN NEEDLE UF SHORT) [...] 200mg in 24 hours 8 Tab 1 traMADol (ULTRAM) 50 mg Oral [...] Take 2 L/min by inhalation daily at [facility]. ACCU-CHEK ACTIVE CARE Misc Kit by See Admin Instructions route. Before meals , at bedtime, and as needed Component Value Date HEMOGLOBIN A1C 5.3 05/23/2011 HEMOGLOBIN A1C 5.2 02/21/2011 HEMOGLOBIN A1C 5.7 01/06/2011 MICROALBUMIN, URINE 5.9 01/06/2011 LDL CHOLESTEROL, DIRECT 127 05/23/2011 CREATININE 0.94 05/23/2011 Component Value Date CREATININE 0.94 05/23/2011 BUN 21.0* 05/23/2011 SODIUM 137 05/23/2011 POTASSIUM 4.1 05/23/2011 CHLORIDE 106 05/23/2011 CO2 21.9* 05/23/2011 GFR 71 05/23/2011 HPI: Ms. Odom complains of the following (by systems): Arthritis symptoms: diffuse arthralgias and doing better Depression like symptoms: depressed mood, difficulty concentrating, fatigue and doing counseling and feels she is better Diabetes Type II complaints: patient is asymptomatic, is compliant with meds a nd diet; glucose monitoring is usually in normal ranges Review of Systems: ROS Denies all of the following: Headache Dizziness Chest pain Shortness of breath Bowel changes Bladder changes Pain in muscle or joints Exam/Objective: Normal Exam for Routine Visits: \\Blood pressure 124/76, pulse 60, height 5' 2.5" (1.588 m), weight 275 lb (124.739 kg). General appearance:more healthy appearing, active, alert, [...] organomegaly. Ac tive bowel sounds. Extremities: symmetrical tr edematous. Assessment and Plan: ASSESSMENT: Encounter Diagnoses Name Primary? DM w/o complication type II Bipolar disorder, unspecified Hyperlipidemia PLAN: Orders Placed This Encounter LIPID PANEL (6 MONTHS X 1) HEMOGLOBIN A1C (6 MONTHS X 1) CMP (6 MONTHS X 1) MICROALBUMIN/CREATININE RATIO, RANDOM UR (6 MONTHS X 1) gabapentin (NEURONTIN) 600 mg Oral tablet lantus 40u q hs ( she has been taking like sliding scale aobut 20u bid) Appropriate medications prescribed (see detailed AVS). Appropriate patient instructions provided (see detailed AVS). Follow-up as I have indicated. Medications and options explained to include common side effects. Understanding of medications, course, diagnosis, and expectations were expressed by patient/g uardian. CREW FOREMAN documented in this encounter Plan of Treatment Not on filedocumented as of this encounter Results * MICROALBUMIN/CREATININE RATIO, RANDOM UR (12/13/2011 10:46 AM CDT) MICROALBUMIN, 96.1 mg/L [facility] URINE LABORATORY SERVICES - ALYSA BRITTON Creatinine, 167 29 - 226 mg/dl [facility] Urine LABORATORY SERVICES - HANNA MICROALBUMIN/CR 57.5 (H) <30 ug/mg [facility] EAT RATIO, UR Comment: LABORATORY UNITS OF MEASURE: ug/mg SERVICES - ALYSA BRITTON [employer] DEFINES ABNORMALITIES IN ALBUMIN EXCRETION FOLLOWS: CATEGORY RESULT (ug/mg Creatinine) NORMAL < 30 MICROALBUMINURIA 30 - 299 CLINICAL ALBUMINURIA > OR = 300 THE ADA RECOMMENDS THAT AT LEAST TWO OF THREE SPECIMENS COLLECTED WITHIN A 3-6 MONTH PERIOD BE ABNORMAL BEFORE CONSIDERING A PATIENT TO BE WITHIN A DIAGNOSTIC CATEGORY. [facility] ACCT#[id number], ,,,, Specimen Urine specimen (specimen) Performing Organization Address City/State/[facility] Ph one Number [facility] SERVICES CLIA# [id number] CLEMENTE RIOJAS [address] - ALYSA REBA [address] [place] [address] LABORATORY SERVICES CLIA# [id number] [place] [address] - [address] * COMPREHENSIVE METABOLIC PANEL (12/13/2011 10:38 AM CDT) GLUCOSE 104 (H) 70 - 100 mg/dl [facility] - ALYSA BRITTON BUN 18.0 7 - 20 mg/dl [facility] - ALYSA BRITTON CREATININE 1.11 (H) 0.6 - 1.0 mg/dl [facility] - ALYSA BRITTON BUN/CREAT RATIO 16.2 10 - 20 [facility] - ALYSA BRITTON GFR 58 >60 ml/min [facility] - ALYSA BRITTON SODIUM 134 134 - 145 mmol/L [facility] - ALYSA BRITTON POTASSIUM 3.4 3.3 - 4.8 mmol/L [facility] - ALYSA BRITTON CHLORIDE 100 98 - 107 mmol/L [facility] - ALYSA BRITTON CO2 22.8 22 - 31 mmol/L [facility] - ALYSA BRITTON ANION GAP 15 4 - 20 [facility] - ALYSA BRITTON CALCIUM 8.6 8.5 - 10.1 mg/dl [facility] - ALYSA BRITTON ALBUMIN 3.6 3.4 - 5.0 g/dl [facility] - ALYSA BRITTON TOTAL PROTEIN 7.5 6.4 - 8.2 g/dl [facility] - ALYSA BRITTON GLOBULIN (CALC) 3.9 [facility] - ALYSA BRITTON ALBUMIN/GLOBULI 0.9 [facility] LAB[facility] SERVICES - ALYSA BRITTON BILIRUBIN TOTAL 0.3 <1.1 mg/dl [facility] - ALYSA BRITTON ALKALINE 128 50 - 136 IU/L [facility] - ALYSA BRITTON AST 17 10 - 40 IU/L [facility] - ALYSA BRITTON ALT 49Comment: [facility] 25 - 70 IU/L [facility] ACCT#[id number], ,,,, LABORATORY SERVICES - ALYSA BRITTON Specimen Blood specimen (specimen) Performing Organization Address [facility] Ph one Number [facility] CLIA# [id number] CLEMENTE RIOJAS 66 - ALYSA BRITTON [address] [place] [address] LABORATORY SERVICES CLIA# [id number] [place] [address] - [facility] REBA [address] [place] [address] * HEMOGLOBIN A1C (12/13/2011 10:38 AM CDT) Pathologist [facility] HEMOGLOBIN A1C 5.4 0 - 6.0 % [facility] - ALYSA BRITTON GLUCOSE, MEAN 105Comment: [facility] mg/dl [facility] BLOOD ACCT#[id number], ,,,, LABORATORY SERVICES - ALYSA BRITTON Specimen Blood specimen (specimen) Performing Organization Address [facility] one [facility] hospital LABORATORY SERVICES CLIA# [id number] CLEMENTE RIOJAS 667 - ALYSA BRITTON [address] [place] [address] LABORATORY SERVICES CLIA# [id number] [place] [address] - [facility] REBA [address] [place] [address] * LIPID PANEL (12/13/2011 10:38 AM CDT) CHOLESTEROL 261 (H) 140 - 200 mg/dl [facility] LABOR[facility] REBA TRIGLYCERIDE 379 (H) 0 - 199 mg/dl [facility] Comment: LABORATORY REFERENCE RANGE - [facility] MYRANDA BRITTON NORMAL LESS THAN 150 mg/dl BORDERLINE HIGH 150 - 199 mg/dl HIGH 200 - 499 mg/dl VERY HIGH GREATER THAN OR = 500 mg/dl HDL 41 29 - 89 mg/dl [email or web address] REBA LDL CALCULATED 144 (H) <130 mg/dl [facility] Comment: LABORATORY SERVICES - [facility] REBA RISK CATEGORY LDL GOAL High risk: <100 mg/dl CHD or CHD risk equivalents (optional goal: <70 mg/dl) (10-year risk > 20%) Moderately high risk <130 mg/dl 2+ risk factors (10-year risk 10% to 20%) Moderate risk: <130 mg/dl 2+ risk factors (10-year risk < 10%) Lower risk: <160 mg/dl 0-1 risk factor EUGENE-CLEMENTE BOSS ACCT#[id number], ,,,, Specimen Blood specimen (specimen) Performing Organization Address City/State/[facility] one Number [facility] CLIA# [id number] ALYSA [place] [address] - ALYSA BRITTON [address] [place] [address] LABORATORY SERVICES CLIA# [id number] [place] [address] - [place] [address] documented in this encounter Visit Diagnoses Diagnosis Type II or unspecified type diabetes me llitus without mention of complication, not stated as uncontrolled Bipolar disorder, unspecified Hyperlipidemia Other and unspecified hyperlipidemia documented in this encounter
--- OUTSIDE RECORDS SUMMARY | 2019-10-21 18:22 | XMS REPORT | Encounter Summary ---
Author Author [facility] Organization [facility] Address Unknown Phone Unavailable Care Team Providers Care Director Of Quality Improvement Name Role Phone Robby Rajan Мария KILLIAN Unavailable Phong Stephens MD PCP Unavailable Reason for Visit * Reason Comments Medication Refill Encounter Details Care Team Description Date Type Department Phong Stephens MD NO ADDRESS ON FILE 06/15/2011 Refill [facility] Primar y Care [address] [phone] Social History Date Tobacco Use [...]
--- OUTSIDE RECORDS SUMMARY | 2019-10-21 18:22 | XMS REPORT | Encounter Summary ---
Author Author [facility] Organization [facility] Address Unknown Phone Unavailable Care Team Providers Care Relationship Management Lead Name Role Phone Robby Rajan CONSTANTIN Unavailable Phong Stephens MD PCP Unavailable Reason for Visit * Reason Comments Medication Refill Encounter Details Care Team Description Date Type Department Phong Stephens MD NO ADDRESS ON FILE DM w/o complication type II (Primary Dx) 05/18/2011 Refill [facility] Primar Care [address] [phone] Social History Date Tobacco Use Types Packs/Day Years Used Quit: 02/06/2011 Current Every Day Smoker Cigarettes 0.5 27 Smokeless Tobacco: Never Used Comments: STARTED [...]
--- OUTSIDE RECORDS SUMMARY | 2019-10-21 18:22 | XMS REPORT | Encounter Summary ---
Author Author [facility] Organization [facility] Address Unknown Phone Unavailable Care Team Providers Care Archives Specialist Name Role Phone Robby Rajan APRN Unavailable Phong Stephens MD PCP Unavailable Reason for Visit * Reason Comments Medication Refill Encounter Details Care Team Description Date Type Department JessieDyan Mere 05/12/2011 [facility] [address] [phone] Social History Date Tobacco Use [...]
--- OUTSIDE RECORDS SUMMARY | 2019-10-21 18:22 | XMS REPORT | Encounter Summary ---
Author Author [facility] Organization [facility] Address Unknown Phone Unavailable Care Team Providers Care Electronics Processing Supervisor Name Role Phone Robby Rajan Мария KILLIAN Unavailable Phong Stephens MD PCP Unavailable Reason for Visit * Reason Comments Medication Refill Encounter Details Care Team Description Date Type Department Phong Stephens MD NO ADDRESS ON FILE 06/15/2011 Refill [facility] Primar y Care [address] [phone] Social History Date Tobacco Use [...]
--- OUTSIDE RECORDS SUMMARY | 2019-10-21 18:22 | XMS REPORT | Encounter Summary ---
Author Author [facility] Organization [facility] Address Unknown Phone Unavailable Care Team Providers Care Artists' Model Name Role Phone Franco Rajanory Мария KILLIAN Unavailable Phong Stephens MD PCP Unavailable Encounter Details Care Team Description Date Type Department Molina Valenzuela, [address] [place] [address] [facility] Lab Schedule 05/03/2011 [facility] General Encounter Laboratory Services [address] [phone] Social History Date Tobacco Use [...] Before meals, at bedtime, and as needed 06/13/2010 05/23/2011 gabapentin (NEURONTIN) Take 600 mg 0 600 mg Oral tablet by mouth 4 times daily. 04/19/2011 08/21/2011 ibuprofen (MOTRIN) 800 mg Take [...] mg Oral mouth daily. tabletIndications: Acute URI 02/08/2011 05/12/2011 warfarin (COUMADIN) 5 mg Take 1 Tab by 50 Tab 2 Oral tablet mouth. 2 tabs daily x 2 consecutive days then 1 tab x 1 day and repeat cycle 04/01/2013 tiotropium (SPIRIVA) 18 Take 18 mcg 0 mcg Inhalation capsule by inhalation daily. 06/13/2010 06/15/2011 furosemide (LASIX) 40 mg Take 40 mg by 0 Oral tablet mouth 2 times daily. 08/10/2010 06/15/2011 albuterol-ipratropium Take 2 Puffs 0 (COMBIVENT) 103-18 by inhalation mcg/Actuation Inhalation every 6 hours Aero as needed. 08/10/2010 05/18/2011 insulin glargine (LANTUS) Inject by 0 100 unit/mL subCUT pen subcutaneous injection 2 times daily. 35 units in AM & 40 units in PM 06/13/2010 06/15/2011 potassium chloride SR Take 1 Tab by 60 Tab 11 (K-DUR) 10 mEq Oral mouth 2 times tablet daily. 05/04/2010 05/18/2011 Insulin [place], by 1 Package 11 Disposable, (BD INSULIN Misc.(Non-Miko PEN NEEDLE UF SHORT) 31 X g; Combo 5/16 " Misc Route) route. NdleIndications: Type II or unspecified type diabetes mellitus without mention of complication, not stated as uncontrolled documented as of this encounter Miscellaneous Notes * Scanned Form - Aok Scanning, Him - 05/04/2011 2:55 PM C SOFTWARE ENGINEER Electronically signed by Interface, Rayray Aojcarlos Transcriptions Incoming at 1 2:55 PM C SOFTWARE ENGINEER documented in this encounter Plan of Treatment Not on filedocumented as of this encounter Procedures Comments Procedure Name Priority Date/Time Associated Diag nosis HIV DETECTION W/REFLX Routine 05/03/2011 Screenin g for STDs CONFIRMATION 10:48 AM C SOFTWARE ENGINEER (sexually transmitt ed diseases) HEPATITIS B SURFACE Routine 05/03/2011 Screening for STDs ANTIGEN 10:48 AM C SOFTWARE ENGINEER (sexually transmitt ed diseases) RPR Routine 05/03/2011 Screening for S TDs 10:48 AM C SOFTWARE ENGINEER (sexually transmitted diseases) GC/CHLAMYDIA, GENITAL Routine 05/03/2011 Screenin g for STDs 12:00 AM C SOFTWARE ENGINEER (sexually transmitted diseases) documented in this encounter Results * RPR (05/03/2011 10:48 AM C SOFTWARE ENGINEER) RPR NON-REACTIVEComment: [facility] ACCT#[id number], ,,,, REBA LAB Specimen Blood specimen (specimen) Performing Organization Address City/State/Zipcode Ph one Number [facility] LAB[facility]ORY SERVICES CLIA# [id number] ALYSA BRITTON [place] [address] - ALYSA BRITTON [address] [place] [address] CLIA# [id number] [facility] REBA S [address] [place] [facility] [address] [place] [address] * HIV ANTIBODY W/REFLX CONFIRMATION (05/03/2011 10:48 AM C SOFTWARE ENGINEER) HIV-1 AB EIA NON-REACTIVE NON-REACTIVE [facility] Comment: [facility] A Nonreactive HIV-1/2 antibody REBA LAB result does not exclude HIV infection since the time frame for seroconversion is variable. If acute HIV infection is suspected, antibody retesting and nucleic acid amplification (HIV DNA/RNA) testing is recommended. Test performed at [facility] [address] [place] [address] Director: MARY LIMA DO,MPH Consult A Doctor DIAGNOSTICS, ,,,, Specimen Blood specimen (specimen) Performing Organization Address [facility] CLIA# [id number] CLEMENTE RIOJAS [address] - [address] [place] CLIA# [id number] Jcarlos RIOJAS [address] * HEPATITIS B SURFACE ANTIGEN (05/03/2011 10:48 AM C SOFTWARE ENGINEER) [facility] HEPATITIS B NON-REACTIVE NON-REACTIVE [facility] SURFACE AG Comment: [facility] Test performed at [facility] DIAGNOSTICS [facility] [address] [place] [address] Director: MARY LIMA DO,MPH [employer], ,,,, Specimen Blood specimen (specimen) Performing Organization Address [facility] / [facility] CLIA# [id number] ALYSA BRITTON [facility] [phone] - [address] [place] CLIA# [id number] Jcarlos RIOJAS [address] * GC AND CHLAMYDIA DNA DETECTION (05/03/2011 12:00 AM C SOFTWARE ENGINEER) [facility] CHLAMYDIA DNA NOT DETECTED NOT DETECTED [facility] GC DNA NOT DETECTED NOT DETECTED [facility] GC AND SEE NOTE () [facility] CHLAMYDIA PROBE Comment: [facility] COMMENT This test was performed using REBA FREEMAN the BD ProbeTec(TM) Chlamydia trachomatis and Neisseria gonorrhoeae Amplified DNA Assays. Test performed at [facility] [address] [address] [place] [address] Director: MARY LIMA DO,MPH Consult A Doctor DIAGNOSTICS, ,,,, Specimen Specimen from genital system (specimen) - Endocervical Performing Organization Address [facility] one [facility] LABORATORY [facility] CLIA# [id number] ALYSA BRITTON [place] [address] - [address] [place] CLIA# [id number] Jcarlos RIOJAS [address] documented in this encounter Visit Diagnoses Diagnosis Screening for STDs (sexually transmitte d diseases) Screening examination for venereal dise ase documented in this encounter
--- OUTSIDE RECORDS SUMMARY | 2019-10-21 18:22 | XMS REPORT | Encounter Summary ---
Author Author [facility] Organization [facility] Address Unknown Phone Unavailable Care Team Providers Care Terrazzo Roller Name Role Phone Robby Rajan APRN Unavailable Phong Stephens MD PCP Unavailable Reason for Referral * Outpatient Services (Routine) Referred By Contact Referred To Contact Status Reason Specialty Diagnoses / Procedures Molina Valenzuela DO [address] [place] [phone] [facility] Mammography [address] [place] [phone] Closed Other Radiology Diagnoses Other screening mammogram P rocedures MAMMO DIGITAL SCREEN BILAT Reason for Visit * Outpatient Services (Routine) Referred By Contact Referred To Contact Status Reason Specialty Diagnoses / Procedures Molina Valenzuela DO [address] [place] [phone] [facility] Mammography [address] [place] [phone] Closed Other Radiology Diagnoses Other screening mammogram P rocedures MAMMO DIGITAL SCREEN BILAT Encounter Details Care Team Description Date Type Department Molina Valenzuela DO [address] [place] [phone] 05/30/2011 [facility] F ort Encounter [facility] [address] [place] [phone] Social History Date Tobacco Use Types [...] not stated as uncontrolled 05/18/2011 09/06/2012 Insulin [place], 1 Package 11 Disposable, (BD INSULIN PEN [...] tablet daily. documented as of this encounter Miscellaneous Notes * Scanned Form - Aok Scanning, [facility] - 05/31/2011 9:44 AM HUMAN RESOURCES PARTNER Electronically signed by Interface, Rayray Aok Transcriptions Incoming at 1 9:44 AM HUMAN RESOURCES PARTNER documented in this encounter Plan of Treatment Not on filedocumented as of this encounter Procedures Comments Procedure Name Priority Date/Time Associated Diag nosis MAMMO SCREEN BILAT W OR Routine 05/30/2011 Other screening mammogram WO CAD 10:00 AM HUMAN RESOURCES PARTNER documented in this encounter Results * MAMMO DIGITAL SCREEN BILAT (05/30/2011 10:00 AM HUMAN RESOURCES PARTNER) Specimen Impressions Performed At : Stable bilateral screening digital mamm ograms with CAD when compared to the prior exam. Recommend a follow up exam in one year in the absence of a palpable abnormality. BI-RADS Category 2: Benign Mammogram Tere horne [[id number]] Narrative Performed At Diagnosis: OTHER SCREENING MAMMOGRAM BILATERAL SCREENING DIGITAL MAMMOGRAM W ITH CAD CC and oblique digital views were obtai nina. Exam was reviewed with CAD. Comparison is made with 08/04/2008. S glendy positive family history is noted. There is no evidence of a spic ulated mass or a malignant appearing area of microcalcification or a signifi cant interval change in either breast. Procedure Note Macho Barrios MD - 06/01/2011 8:49 AM HUMAN RESOURCES PARTNER Diagnosis: OTHER SCREENING MAMMOGRAM BILATERAL SCREENING DIGITAL MAMMOGRAM WITH CAD CC and oblique digital views were obtained. Exam was reviewed with CAD. Comparison is made with 08/04/2008. Strong positive family history is noted. There is no evidence of a spiculated mass or a malignant appearing area of microcalcification or a significant interval change in either breast. IMPRESSION: Stable bilateral screening digital mammograms with CAD when compared to the prior exam. Recommend a follow up exam in one year in the absence of a palpable abnormality. BI-RADS Category 2: Benign Mammogram Tere horne [[id number]] documented in this encounter Visit Diagnoses Diagnosis Other screening mammogram documented in this encounter
--- OUTSIDE RECORDS SUMMARY | 2019-10-21 18:22 | XMS REPORT | Encounter Summary ---
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 [address] * PROTIME-INR (06/22/2011 3:15 PM TOP STOP ATTACHER) PROTIME 14.0 (H) 9.8 - 11.1 Sec [facility] ALYSA BRITTON LAB INR 1.38 (L)Comment: 2.0 - 3.[address] [facility] ACCT#[id number], ,,,REBA LAB Specimen Blood specimen (specimen) Performing Organization Address [facility] one [facility] LABORATORY SERVICES CLIA# [id number] CLEMENTE RIOJAS [address] ALYSA BRITTON [address] [place] [address] [place] CLIA# [id number] Milly RIOJAS [address] REBA [address] [place] [address] * CBC WITHOUT DIFFERENTIAL (06/22/2011 3:15 PM TOP STOP ATTACHER) WBC 10.75 (H) 3.0 - 10.4 x10E3 [facility] ALYSA BRITTON LAB RBC 4.40 3.77 - 4.97 x10E6 [facility] ALYSA BRITTON LAB HEMOGLOBIN 13.9 11.9 - 15.0 g/dL [facility] ALYSA BRITTON LAB HEMATOCRIT 41.7 34.4 - 43.6 % [facility] ALYSA BRITTON LAB MCV 94.9 79 - 100 fL [facility] ALYSA BRITTON LAB MCH 31.6 28 - 34 pg [facility] ALYSA BRITTON LAB MCHC 33.3 32 - 35 g/dL [facility] ALYSA BRITTON LAB RDW 13.0 11.5 - 15.1 % [facility] ALYSA BRITTON LAB PLATELETS 196 148 - 408 x10E3 [facility] ALYSA BRITTON LAB MPV 8.1Comment: [facility]N 7.4 - 10.6 [facility] ACCT#[id number], ,,,, CENTER ALYSA BRITTON LAB Specimen Blood specimen (specimen) Performing Organization Address City/State/Zipcode Ph one Number [facility] CLIA# [id number] ALYSA BRITTON [place] [address] - ALYSA BRITTON [address] [place] [address] CLIA# [id number] ALYSA BRITTON S [address] * COMPREHENSIVE METABOLIC PANEL (06/22/2011 3:15 PM TOP STOP ATTACHER) GLUCOSE 98 70 - 100 mg/dl [facility] ALYSA BRITTON LAB BUN 17.0 7 - 20 mg/dl [facility] ALYSA REBA LAB CREATININE 0.95 0.6 - 1.0 mg/dl [facility] ALYSA REBA LAB BUN/CREAT RATIO 17.9 10 - 20 [facility] ALYSA REBA LAB GFR 70 >60 ml/min [facility] ALYSA REBA LAB SODIUM 141 134 - 145 mmol/L [facility] LAB POTASSIUM 4.1 3.3 - 4.8 mmol/L [facility] Comment: [place] ALYSA + REBA LAB SPECIMEN HEMOLYZED, RESULT MAY BE INCREASED BY AT LEAST 10%. CHLORIDE 107 98 - 107 mmol/L [facility] ALYSA BRITTON LAB CO2 19.9 (L) 22 - 31 mmol/L [facility] ALYSA REBA LAB ANION GAP 18 4 - 20 [facility] ALYSA BRITTON LAB CALCIUM 7.9 (L) 8.5 - 10.1 mg/dl [facility] LAB ALBUMIN 3.6 3.4 - 5.0 g/dl [facility] REBA LAB TOTAL PROTEIN 7.1 6.4 - 8.2 g/dl [facility] REBA LAB GLOBULIN (CALC) 3.5 [facility] REBA LAB ALBUMIN/GLOBULI 1.0 [facility] N RATIO [facility] REBA [facility] BILIRUBIN TOTAL 0.2 <1.1 mg/dl [facility] ALYSA BRITTON LAB ALKALINE 141 (H) 50 - 136 IU/L [facility] PHOSPHATASE [facility] LAB AST 17Comment: SPECIMEN HEMOLYZED, 10 - 40 IU/L [facility] RESULT MAY BE INCREASED BY AT [facility] LEAST 10%. REBA LAB ALT 40Comment: [facility] COMPANYREBATN 25 - 70 IU/L M [facility] ACCT#[id number], ,,,, CENTER [facility] REBA LAB Specimen Blood specimen (specimen) Performing Organization Address [facility] one [facility] LABORATORY SERVICES CLIA# [id number] [facility] [place], [place] [address] CLIA# [id number] [facility] Milly BRITTON S [address] * ETHANOL LEVEL (06/22/2011 3:15 PM TOP STOP ATTACHER) ETHANOL LESS THAN 10 <10 mg/dl [facility] Comment: [facility] Chain of Custody Handling was [facility] LAB not performed on this specimen. This test will not meet medical-legal requirements. [facility] COMPANYREBABLADENBOR[place], [place] ACCT#[id number], ,,,, Specimen Blood specimen (specimen) Performing Organization Address [facility] one [facility] LABORATORY SERVICES CLIA# [id number] [facility] [place] [address] CLIA# [id number] [facility] Milly BRITTON S [address] * ACETAMINOPHEN LEVEL (06/22/2011 3:15 PM TOP STOP ATTACHER) ACETAMINOPHEN 0.0 (L)Comment: 10 - 30 ug/ml [facility] ACCT#[id number], ,,,, RE[facility] LAB Specimen Blood specimen (specimen) Performing Organization Address [facility] Hospital[facility] Ph one Number [facility] CLIA# [id number] CLEMENTE RIOJAS [address] 01 - [facility] REBA [address] [place] [address] CLIA# [id number] Milly RIOJAS [address] * SALICYLATE LEVEL (06/22/2011 3:15 PM TOP STOP ATTACHER) SALICYLATE 7.3Comment: [facility] NORTHJaredCLEMENTE BOSS 2.8 - 20 mg/dl [facility] ACCT#[id number], ,,,, CENTER ALYSA BRITTON LAB Specimen Blood specimen (specimen) Performing Organization Address [facility] Hospitalc[facility] Ph one Judie [facility] CLIA# [id number] CLEMENTE RIOJAS [address] 01 - ALYSA BRITTON [address] [place] [address] [place] CLIA# [id number] Milly RIOJAS [address] documented in this encounter Visit Diagnoses Diagnosis Suicidal ideation Chronic UTI Urinary tract infection, site not speci fied Suprapubic catheter Other cystostomy status UTI (lower urinary tract infection) Urinary tract infection, site not speci fied documented in this encounter Administered Medications Action Date Dose Rate Site Medication Order MAR Action 06/22/2011 7:17 PM TOP STOP ATTACHER 1 Tablet trimethoprim-sulfamethoxazole (BACTRIM Given DS) 800-160 mg per tablet 1 Tab 1 Tablet, Oral, ONE TIME ONLY, 1 dose, Yeni 06/22/11 at 1915, Routine documented in this encounter
--- OUTSIDE RECORDS SUMMARY | 2019-10-21 18:22 | XMS REPORT | Encounter Summary ---
Author Author [facility] Organization [facility] Address Unknown Phone Unavailable Care Team Providers Care Sewing Supervisor Name Role Phone Robby Rajan Мария KILLIAN Unavailable Phong Stephens MD PCP Unavailable Reason for Visit * Reason Comments Medication Refill Encounter Details Care Team Description Date Type Department Phong Stephens MD NO ADDRESS ON FILE 05/18/2011 Refill [facility] Primar Care [address] [address] Social History Date Tobacco [...]
--- OUTSIDE RECORDS SUMMARY | 2019-10-21 18:23 | XMS REPORT | Encounter Summary ---
Author Author [facility] Organization [facility] Address Unknown Phone Unavailable Care Team Providers Care Pocket Builder Name Role Phone Robby Rajan Мария KILLIAN Unavailable Phong Stephens MD PCP Unavailable Reason for Visit * Reason Comments Migraine pt reports migraine on r te mple Nausea Encounter Details Care Team Description Date Type Department Maurice Durbin MD [address] [place] [address] Migraine (Primary Dx); Acute maxillary sinusitis 03/22/2011 Office Visit [facility]3] Primar y Care [place] [address] [place] [address] Social History Date Tobacco Use [...] Signs Reading Time Taken Comments Vital Sign 114/80 03/22/2011 2:18 PM CDT Blood Pressure - - Pulse 35 C (95 F) 03/22/2011 2:18 PM CDT Temperature - - Respiratory Rate - - Oxygen Saturation - - Inhaled Oxygen Concentration 125.6 kg (277 lb) 03/22/2011 2:18 PM CDT Weight 160 cm (5' 3") 03/22/2011 2:18 PM CDT Height 49.07 03/22/2011 2:18 PM CDT Body Mass Index documented in this encounter Progress Notes * Maurice Durbin MD - 03/22/2011 2:20 PM CDT HISTORY OF PRESENT ILLNESS Ayden Odom, a 40 y.o. female. Nausea This is a new problem. The current episode started yesterday. The problem occurs continuously. There has been no fever. Associated symptoms include abdominal pa in and headaches. Pertinent negatives include no arthralgias and no diarrhea. REVIEW OF SYSTEMS Review of Systems Constitutional: Negative for diaphoresis, activity change, appetite change and f atigue. HENT: Positive for nosebleeds, congestion, rhinorrhea, postnasal drip and sinus pressure. Negative for facial swelling, sneezing, drooling, mouth sores, neck pa in, neck stiffness and dental problem. Eyes: Negative for discharge and itching. Respiratory: Negative for apnea and chest tightness. Cardiovascular: Negative for chest pain and leg swelling. Gastrointestinal: Positive for nausea and abdominal pain. Negative for diarrhea. Genitourinary: Negative for difficulty urinating and dyspareunia. Musculoskeletal: Negative for back pain and arthralgias. Skin: Negative for color change and pallor. Neurological: Positive for headaches. Negative for dizziness, facial asymmetry, light-headedness and numbness. Hematological: Negative for adenopathy. Psychiatric/Behavioral: Negative for behavioral problems, confusion and agitatio n. PHYSICAL EXAM BP 114/80 | Temp(Src) 95 F (35 C) (Tympanic) | Ht 5' 3" (1.6 m) | Wt 277 lb (125.646 kg) | BMI 49.07 kg/m2 Physical Exam Constitutional: She appears well-developed and well-nourished. HENT: Right Ear: External ear normal. Left Ear: External ear normal. Nose: Mucosal edema (nasasl standing) and rhinorrhea present. Right sinus exhibi ts maxillary sinus tenderness and frontal sinus tenderness. Left sinus exhibits maxillary sinus tenderness and frontal sinus tenderness. Mouth/Throat: Oropharynx is clear and moist. Eyes: Conjunctivae are normal. Pupils are equal, round, and reactive to light. Neck: Normal range of motion. Cardiovascular: Normal rate, regular rhythm and normal heart sounds. Pulmonary/Chest: Effort normal and breath sounds normal. Abdominal: Soft. Bowel sounds are normal. ASSESSMENT and PLAN: Encounter Diagnoses 1. Migraine (346.90A) KETOROLAC 60 MG/2 ML INJECTION, PROMETHAZINE 25 MG/ML INJ ECTION 2. Acute maxillary sinusitis (461.0) Still with sinus infection Orders Placed This Encounter Ketorolac 60 mg/2 ml injection Promethazine 25 mg/ml injection Ketorolac (toradol) 60 mg/2 ml im soln Promethazine (phenergan) 25 mg/ml injection soln Amoxicillin-clavulanate (augmentin) 875-125 mg oral tablet documented in this encounter Plan of Treatment Not on filedocumented as of this encounter Visit Diagnoses Diagnosis Migraine - Primary Migraine, unspecified, without mention of intractable migraine without mention of status migrainosus Acute maxillary sinusitis documented in this encounter
--- OUTSIDE RECORDS SUMMARY | 2019-10-21 18:23 | XMS REPORT | Encounter Summary ---
Author Author [facility] Organization [facility] Address Unknown Phone Unavailable Care Team Providers Care Branch Operations Specialist Name Role Phone Robby Rajan Мария KILLIAN Unavailable Phong Stephens MD PCP Unavailable Reason for Visit * Reason Comments Medication Refill Encounter Details Care Team Description Date Type Department Phong Stephens MD NO ADDRESS ON FILE Pain, lip; Chronic pain 02/27/2011 [facility] [address] [phone] Social History Date Tobacco Use Types Packs/Day [...] as of this encounter Visit Diagnoses Diagnosis Pain, lip Diseases of lips Chronic pain Other chronic pain documented in this encounter
--- OUTSIDE RECORDS SUMMARY | 2019-10-21 18:23 | XMS REPORT | Encounter Summary ---
Author Author [facility] Organization [facility] Address Unknown Phone Unavailable Care Team Providers Care Television Director Name Role Phone Robby Rajan CONSTANTIN Unavailable Phong Stephens MD PCP Unavailable Encounter Details Care Team Description Date Type Department Phong Stephens MD NO ADDRESS ON FILE [facility], Lab Schedule 02/21/2011 Hospital [facility] Encounter Laboratory Services [address] [address] Social History Date Tobacco Use [...] Oral tablet by mouth 4 times daily. 02/08/2011 05/12/2011 warfarin (COUMADIN) 5 mg Take 1 Tab by 50 Tab 2 Oral tablet mouth. 2 tabs daily x 2 consecutive days then 1 tab x 1 day and repeat cycle 02/08/2011 04/19/2011 ibuprofen (MOTRIN) 800 mg Take 1 Tab by 100 Tab 1 Oral tabletIndications: mouth 3 times Chest wall pain daily with meals. 12/09/2010 02/27/2011 traMADol (ULTRAM) 50 mg Take 1-2 Tabs 60 Tab 2 Oral tabletIndications: by mouth Pain, lip, Chronic pain every 6 hours as needed for Pain. 12/07/2010 03/16/2011 loratadine (CLARITIN) 10 Take 1 Tab by 30 Tab 3 mg Oral mouth daily. tabletIndications: Acute URI 04/01/2013 tiotropium (SPIRIVA) 18 Take 18 mcg 0 mcg Inhalation capsule by inhalation daily. 09/08/2010 03/16/2011 fluticasone (FLONASE) 50 Administer 2 1 Bottle 5 mcg/spray Both Nostril Sprays in SpSnIndications: Acute each nostril URI daily. 06/13/2010 06/15/2011 furosemide (LASIX) 40 mg [...] mEq Oral mouth 2 times tablet daily. 06/13/2010 04/26/2011 gabapentin (NEURONTIN) Take 1 Tab by 120 Tab 11 600 mg Oral mouth 3 times tabletIndications: daily. Fibromyalgia 05/04/2010 05/18/2011 Insulin [place], by 1 Package 11 Disposable, (BD INSULIN Misc.(Non-Miko PEN NEEDLE UF SHORT) 31 X g; Combo /16 " Misc Route) route. NdleIndications: Type II or unspecified type diabetes mellitus without mention of complication, not stated as uncontrolled documented as of this encounter Plan of Treatment Not on filedocumented as of this encounter Procedures Comments Procedure Name Priority Date/Time Associated Diag nosis SEDIMENTATION RATE Routine 02/21/2011 Rheumatoid arthritis 2:17 PM CDT RHEUMATOID FACTOR Routine 02/21/2011 Rheumatoid a rthritis 2:17 PM CDT HEMOGLOBIN A1C Stat 02/21/2011 DM w/o complica tion type 2:17 PM CDT II BASIC METABOLIC PANEL Stat 02/21/2011 DM w/o c omplication type 2:17 PM CDT II documented in this encounter Results * RHEUMATOID FACTOR (02/21/2011 2:17 PM CDT) [facility] RHEUMATOID 7 <14 IU/mL [facility] FACTOR Comment: [facility] [place] Test performed at [facility] [place] [address] [place] [address] Director: MARY LIMA DO,MPH [employer], ,,,, Specimen Blood specimen (specimen) Performing Organization Address [facility] Ph one [facility] LABORATORY SERVICES CLIA# [id number] ALYSA REBA [place] [address] [place] CLIA# [id number] [place] [address] RE[facility] [address] [place] [address] * SEDIMENTATION RATE (02/21/2011 2:17 PM CDT) [facility] ESR 5Comment: CLEMENTE ROBISON 0 - 20 mm/hr [facility] (SEDIMENTATION ACCT#[id number], ,,,, [place] RATE) [facility] LAB Specimen Blood specimen (specimen) Performing Organization Address [facility] LABORATORY SERVICES CLIA# [id number] [place] [address] - [address] [place] CLIA# [id number] [place] [address] RE[facility] [address] [place] [address] * HEMOGLOBIN A1C (02/21/2011 2:17 PM CDT) [facility] HEMOGLOBIN A1C 5.2 0 - 6.0 % [facility] ALYSA BRITTON LAB GLUCOSE, MEAN 103Comment: [facility] mg/dl [facility] BLOOD ACCT#[id number], ,,,, [facility] [place] [facility] Specimen Blood specimen (specimen) Performing Organization Address City/[facility] Ph one Number [facility] LABORATORY SERVICES CLIA# [id number] CLEMENTE RIOJAS [address] - [facility] REBA [address] [place] [address] CLIA# [id number] Milly RIOJAS S [address] [address] [address] [place] [address] * BASIC METABOLIC PANEL (02/21/2011 2:17 PM CDT) GLUCOSE 105 (H) 70 - 100 mg/dl [facility] ALYSA BRITTON LAB BUN 11.0 7 - 20 mg/dl [facility] CREATININE 1.03 (H) 0.6 - 1.0 mg/dl [facility] ALYSA BRITTON LAB BUN/CREAT RATIO 10.7 10 - 20 [facility] ALYSA BRITTON LAB GFR 64 >60 ml/min [facility] ALYSA BR[facility] LAB SODIUM 134 (L) 135 - 145 mmol/L [facility] REBA LAB POTASSIUM 3.6 3.3 - 4.8 mmol/L [facility] ALYSA BR[facility]TON LAB CHLORIDE 103 98 - 107 mmol/L [facility] REBA LAB CO2 25.2 22 - 31 mmol/L [facility] REBA LAB ANION GAP 9 4 - 20 [facility] REBA LAB CALCIUM 8.6Comment: EUGENECLEMENTE BOSS 8.5 - 10.1 mg/dl [facility] ACCT#[id number], ,,,, CENTER ALYSA BRITTON LAB Specimen Blood specimen (specimen) Performing Organization Address City/[facility] Ph one Number [facility] LABORATORY SERVICES CLIA# [id number] CLEMENTE RIOJAS [address] - ALYSA BRITTON [address] [place] [address] CLIA# [id number] Milly RIOJAS S [address] [address] [address] [place] [address] documented in this encounter Visit Diagnoses Diagnosis Type II or unspecified type diabetes me llitus without mention of complication, not stated as uncontrolled Rheumatoid arthritis(714.0) Rheumatoid arthritis documented in this encounter
--- OUTSIDE RECORDS SUMMARY | 2019-10-21 18:23 | XMS REPORT | Encounter Summary ---
Author Author [facility] Organization [facility] Address Unknown Phone Unavailable Care Team Providers Care Lens And Frames Prescription Clerk Name Role Phone Robby Rajan CONSTANTIN Unavailable Phong Stephens MD PCP Unavailable Reason for Visit * Reason Comments Diabetes Encounter Details Care Team Description Date Type Department Phong Stephens MD NO ADDRESS ON FILE DM w/o complication type II; Bipolar disorder, unspecified; Unspecified hereditary and idiopathic peripheral neuropathy; Hyperlipidemia; Pulmonary embolism 04/24/2011 Office Visit [facility] Primar y Care [address] [address] Social History Date Tobacco [...] Signs Reading Time Taken Comments Vital Sign 108/74 04/24/2011 10:47 AM HEARING THERAPY DIRECTOR Blood Pressure 64 04/24/2011 10:47 AM HEARING THERAPY DIRECTOR Pulse - - Temperature - - Respiratory Rate - - Oxygen Saturation - - Inhaled Oxygen Concentration 122.9 kg (271 lb) 04/24/2011 10:47 AM HEARING THERAPY DIRECTOR Weight 158.8 cm (5' 2.5") 04/24/2011 10:47 AM HEARING THERAPY DIRECTOR Height 48.78 04/24/2011 10:47 AM HEARING THERAPY DIRECTOR Body Mass Index documented in this encounter Progress Notes * Phong Stephens MD - 04/24/2011 10:58 AM HEARING THERAPY DIRECTOR Subjective: Ayden Odom is a 40 y.o. female. 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 100 Tab 1 nicotine (NICODERM CQ) 21 mg/24 hr Transdermal patch Apply 1 Patch to skin a s directed every 24 hours. X 1 month then reduce to 14 mg daily x 2 weeks then 7 mg x 2 weeks ipratropium-albuterol (DUONEB) 0.5 mg-3 mg(2.5 mg base)/3 [...] in each nostril daily. 1 Bottle 5 warfarin (COUMADIN) 5 mg Oral tablet Take 1 Tab by mouth. 2 tabs daily x 2 c onsecutive days then 1 tab x 1 day and repeat cycle 50 Tab 2 OXcarbazepine (TRILEPTAL) 150 mg Oral tablet Take 150 mg by mouth 2 times da cornell. acetaminophen (TYLENOL EXTRA STRENGTH) 500 mg Oral [...] by inhalation every 6 hours as needed. insulin glargine (LANTUS) 100 unit/mL subCUT pen Inject by subcutaneous inj ection 2 times daily. 35 units in AM & 40 units in PM metoprolol succinate ER 24 hour (TOPROL XL) 100 mg Oral tablet Take 100 mg b y mouth daily. ziprasidone (GEODON) 80 mg Oral Cap Take 80 mg by mouth 2 times daily with m eals. potassium chloride SR (K-DUR) 10 mEq Oral tablet Take 1 Tab by mouth 2 times daily. 60 Tab 11 gabapentin (NEURONTIN) 600 mg Oral tablet Take 1 Tab by mouth 3 times daily. 120 Tab 11 levalbuterol HFA (XOPENEX HFA) 45 mcg/Actuation Inhalation HFAA Take 2 Puffs by inhalation every 6 hours. 1 Inhaler 5 Insulin [place], Disposable, (BD INSULIN PEN NEEDLE UF SHORT) 31 X 5/16 " Mi sc Ndle by Misc.(Non-Drug; Combo Route) route. 1 Package 11 topiramate (TOPAMAX) 100 mg Oral tablet Take 1 Tab by mouth 2 times daily. 60 Tab 5 Oxygen-Air Delivery Systems Misc Leisa Take 2 L/min by inhalation daily at [facility] ACCU-CHEK ACTIVE CARE Misc Kit by See Admin Instructions route. Before meals , at bedtime, and as needed Lab Results Component Value Date HEMOGLOBIN A1C 5.2 02/21/2011 HEMOGLOBIN A1C 5.7 01/06/2011 HEMOGLOBIN A1C 5.5 06/15/2010 MICROALBUMIN, URINE 5.9 01/06/2011 LDL CHOLESTEROL, DIRECT 163* 04/06/2011 CREATININE 0.89 04/06/2011 Lab Results Component Value Date INR 0.98* 04/24/2011 INR 0.97* 01/06/2011 INR 1.38* 12/23/2010 PROTIME 10.2 04/24/2011 PROTIME 10.1 01/06/2011 PROTIME 14.0* 12/23/2010 HPI: Ms. Odom complains of the following (by systems): Arthritis symptoms: diffuse arthralgias and neuropathy sxs legs, hands and upper arms not as well contorlled and she is asking about increased neurontin. Depression like symptoms: less emotional, less manic. has freq care givers. she is getting GED Diabetes Type II complaints: patient is asymptomatic, is compliant with meds a nd diet; glucose monitoring is usually in normal ranges Hypertension related symtoms/issues: taking medications as instructed, no side effects of medications, no chest pain on exertion, no dyspnea on exertion, no ed darnell No complications related to lipids or lipid therapy and stopping lipitor has not changed myalgias Review of Systems: ROS Denies all of the following: Headache Dizziness Chest pain Shortness of breath: no sxs related to recurrent clotting / PE. Has not had INR cked x 3 mo.(? She is taking meds) Bowel changes Bladder changes Pain in muscle or joints Exam/Objective: Normal Exam for Routine Visits: \\Blood pressure 108/74, pulse 64, height 5' 2.5" (1.588 m), weight 271 lb (122.925 kg). General appearance: obese and chronic affect change appearing, active, alert, co operative, social, normally [...] w/o complication type II Bipolar disorder, unspecified Unspecified hereditary and idiopathic peripheral neuropathy Hyperlipidemia Pulmonary embolism PLAN: Orders Placed This Encounter PROTIME & INR LIPID PANEL (3 MONTHS X 1) CMP (3 MONTHS X 1) restart lipitor and add Co Q 10 Increase neurontin 600mg to qid Appropriate medications prescribed (see detailed AVS). Appropriate patient instructions provided (see detailed AVS). Follow-up as I have indicated. Medications and options explained to include common side effects. Understanding of medications, course, diagnosis, and expectations were expressed by patient/g uardian. ING THERAPY DIRECTOR documented in this encounter Plan of Treatment Not on filedocumented as of this encounter Results * PROTIME-INR (04/24/2011 11:18 AM HEARING THERAPY DIRECTOR) PROTIME 10.2 9.8 - 11.1 Sec [facility] ALYSA [facility] INR 0.98 (L)Comment: 2.0 - 3.0 [facility] ACCT#[id number], ,,,, [facility] Specimen Blood specimen (specimen) Performing Organization Address City/State/Zipcode Ph one Number [facility] CLIA# [id number] CLEMENTE RIOJAS [phone] - ALYSA BRITTON [address] [place] [address] CLIA# [id number] Milly RIOJAS [id number] [facility] [address] [facility] documented in this encounter Visit Diagnoses Diagnosis Type II or unspecified type diabetes me llitus without mention of complication, not stated as uncontrolled Bipolar disorder, unspecified Unspecified hereditary and idiopathic p eripheral neuropathy Hyperlipidemia Other and unspecified hyperlipidemia Pulmonary embolism Other pulmonary embolism and infarction documented in this encounter
--- OUTSIDE RECORDS SUMMARY | 2019-10-21 18:23 | XMS REPORT | Encounter Summary ---
Author Author [facility] Organization [facility] Address Unknown Phone Unavailable Care Team Providers Care Business Reporting Developer Name Role Phone Franco Rajanory Мария KILLIAN Unavailable Phong Stephens MD PCP Unavailable Reason for Visit * Reason Comments Nicotine Dependence Encounter Details Care Team Description Date Type Department Brittany Apple Nicotine Dependence 04/11/2011 Telephone [facility] Primar Care [address] [phone] Social History Date Tobacco Use [...] * Telephone Encounter - Brittany Apple - 04/11/2011 11:39 AM SPEEDER MACHINE OPERATOR Pt request med for smoking cessation. nicoderm patch 21 mg daily x 1 month then 14 mg x 2 weeks then 7 mg x 2 weeks called to haylee. DER MACHINE OPERATOR documented in this encounter Plan of Treatment Not on filedocumented as of this encounter Visit Diagnoses Not on filedocumented in this encounter
--- OUTSIDE RECORDS SUMMARY | 2019-10-21 18:23 | XMS REPORT | Encounter Summary ---
Author Author [facility] Organization [facility] Address Unknown Phone Unavailable Care Team Providers Care Carbon Capture Power Plant Operator Name Role Phone King Robby Мария KILLIAN Unavailable Phong Stephens MD PCP Unavailable Reason for Visit * Reason Comments Medication Question concerned Ayden is sellin g xanax Encounter Details Care Team Description Date Type Department Jessica Christian Medication Question (concerned Ayden palacios s selling xanax) 02/28/2011 Telephone [facility] Primar y Care [address] [phone] Social History Date Tobacco Use [...] * Telephone Encounter - Jessica Christian - 02/28/2011 3:[address] Stephens no more refills of Xanax. documented in this encounter Plan of Treatment Not on filedocumented as of this encounter Visit Diagnoses Not on filedocumented in this encounter
--- OUTSIDE RECORDS SUMMARY | 2019-10-21 18:23 | XMS REPORT | Encounter Summary ---
Author Author [facility] Organization [facility] Address Unknown Phone Unavailable Care Team Providers Care Machine Presser Name Role Phone Robby Rajan CONSTANTIN Unavailable Phong Stephens MD PCP Unavailable Reason for Visit * Reason Comments Medication Refill Encounter Details Care Team Description Date Type Department Phong Stephens MD NO ADDRESS ON FILE Chest wall pain (Primary Dx) 04/19/2011 [facility] [address] [phone] Social History Date Tobacco Use Types Packs/Day [...]
--- OUTSIDE RECORDS SUMMARY | 2019-10-21 18:23 | XMS REPORT | Encounter Summary ---
Author Author [facility] Organization [facility] Address Unknown Phone Unavailable Care Team Providers Care Switch Box Installer Name Role Phone Robby Rajan CONSTANTIN Unavailable Phong Stephens MD PCP Unavailable Reason for Visit * Reason Comments Headache Encounter Details Care Team Description Date Type Department Phong Stephens MD NO ADDRESS ON FILE Pain, lip; Chronic pain; Migraine 03/31/2011 Office Visit [facility] Primar [address] [address] Social History Date Tobacco Use [...] Reading Time Taken Comments Vital Sign 108/74 03/31/2011 5:17 PM CDT Blood Pressure - - Pulse - - Temperature - - Respiratory Rate - - Oxygen Saturation - - Inhaled Oxygen Concentration 126.1 kg (278 lb) 03/31/2011 5:17 PM CDT Weight 160 cm (5' 3") 03/31/2011 5:17 PM CDT Height 49.25 03/31/2011 5:17 PM CDT Body Mass Index documented in this encounter Progress Notes * Phong Stephens MD - 04/01/2011 7:42 AM CDT Subjective: Amberte Marilynnchas Odom is a 40 y.o. female. 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 Embolism and Thrombosis of Unspecified Site 453.9 Chronic Airway Obstruction, not Elsewhere Classified 496 Pulmonary Embolism 415.19AD Chronic pain 338.29A DM w/o Complication Type II 250.00 Hip Pain 719.45F Sleep Apnea 780.57C Urinary Retention 788.20B Hyperlipidemia 272.4S Narcolepsy and Cataplexy 347.01E Mental Status Change 780.97G Vomiting 787.03B Cough 786.2 Sinusitis 473.9G Non compliance with medical treatment V15.81AC Suicidal ideation V62.84 Overdose of benzodiazepine 969.4CG Current outpatient prescriptions ordered prior to encounter Medication Sig Dispense Refill fluconazole (DIFLUCAN) 200 mg Oral tablet Take 1 Tab by mouth daily. 5 Tab 0 busPIRone (BUSPAR) 10 mg Oral tablet Take 10 mg by mouth 2 times daily. PARoxetine HCl (PAXIL) 10 mg Oral tablet [...] day and repeat cycle 50 Tab 2 ibuprofen (MOTRIN) 800 mg Oral tablet Take 1 Tab by mouth 3 times daily with meals. 100 Tab 1 OXcarbazepine (TRILEPTAL) 150 mg Oral tablet Take [...] by mouth 2 times daily with m robbi. potassium chloride SR (K-DUR) 10 mEq Oral tablet Take 1 Tab by mouth 2 times daily. 60 Tab 11 gabapentin (NEURONTIN) 600 mg Oral tablet Take 1 Tab by mouth 3 times daily. 120 Tab 11 levalbuterol HFA (XOPENEX HFA) 45 mcg/Actuation Inhalation HFAA Take 2 Puffs by inhalation every 6 hours. 1 Inhaler 5 Insulin [place], Disposable, (BD INSULIN PEN NEEDLE UF SHORT) [...] Odom complains of the following (by systems): 3-4 days L caodaism parietal CROWELL with light intolerance, nausea and phonophobia. ty pical of her migrain.. have been occuring more frequently. Imitrex helps in p ast but out. toradol helps also. is not asking for narcotic Review of Systems: ROS Denies all of the following acutely Dizziness Chest pain Shortness of breath Bowel changes Bladder changes Pain in muscle or joints Exam/Objective: Normal Exam for Routine Visits: \\Blood pressure 108/74, height 5' 3" (1.6 m), we ight 278 lb (126.1 kg). General appearance: healthy appearing, active, alert, [...] and Plan: ASSESSMENT: Encounter Diagnoses Name Primary? Pain, lip Chronic pain Migraine PLAN: Orders Placed This Encounter Ketorolac 60 mg/2 ml injection Promethazine 25 mg/ml injection Sumatriptan (imitrex) 100 mg oral tablet Tramadol (ultram) 50 mg oral tablet Ketorolac (toradol) 60 mg/2 ml im soln Promethazine (phenergan) 25 mg/ml injection soln Appropriate medications prescribed (see detailed AVS). Appropriate [...] of lips Chronic pain Other chronic pain Migraine Migraine, unspecified, without mention of intractable migraine without mention of status migrainosus documented in this encounter
--- OUTSIDE RECORDS SUMMARY | 2019-10-21 18:23 | XMS REPORT | Encounter Summary ---
Author Author [facility] Organization [facility] Address Unknown Phone Unavailable Care Team Providers Care Rn Document Improvement Specialist Name Role Phone Robby Rajan Мария KILLIAN Unavailable Phong Stephens MD PCP Unavailable Encounter Details Care Team Description Date Type Department Phong Stephens MD NO ADDRESS ON FILE 04/24/2011 Anti-coag visit [facility] Primar Care [address] [phone] Social History Date Tobacco [...]
--- OUTSIDE RECORDS SUMMARY | 2019-10-21 18:23 | XMS REPORT | Encounter Summary ---
Author Author [facility] Organization [facility] Address Unknown Phone Unavailable Care Team Providers Care Winter Sports Manager Name Role Phone Robby Rajan Мария KILLIAN Unavailable Phogn Stephens MD PCP Unavailable Reason for Visit * Reason Comments Upper Respiratory cough, nasal/chest congesti on, hoarse, fever x 6 days Symptoms Encounter Details Care Team Description Date Type Department Lavell Bautista MD [address] [place] [address] COPD exacerbation (Primary Dx) 04/06/2011 Office Visit [facility] Primar y Care [address] [phone] Social History Date Tobacco Use [...] Signs Reading Time Taken Comments Vital Sign 110/62 04/06/2011 9:41 AM CDT Blood Pressure - - Pulse - - Temperature - - Respiratory Rate - - Oxygen Saturation - - Inhaled Oxygen Concentration 122 kg (269 lb) 04/06/2011 9:41 AM CDT Weight 158.8 cm (5' 2.5") 04/06/2011 9:41 AM CDT Height 48.42 04/06/2011 9:41 AM CDT Body Mass Index documented in this encounter Progress Notes * Lavell Bautista MD - 04/06/2011 9:52 AM CDT HISTORY OF PRESENT ILLNESS Ayden Odom, a 40 y.o. female. Chief Complaint Patient presents with Upper Respiratory Symptoms cough, nasal/chest congestion, hoarse, fever x 6 days HPI REVIEW OF SYSTEMS Review of Systems Constitutional: Positive for fever (subjective). Respiratory: Positive for cough (nonproductive), shortness of breath and wheezin g. PHYSICAL EXAM BP 110/62 | Ht 5' 2.5" (1.588 m) | Wt 269 lb (122.018 kg) | BMI 48.42 kg/m2 Physical Exam Constitutional: She appears well-developed and well-nourished. HENT: Right Ear: External ear normal. Left Ear: External ear normal. Mouth/Throat: Oropharynx is clear and moist. Eyes: Right eye exhibits no discharge. Left eye exhibits no discharge. Cardiovascular: Normal rate and regular rhythm. Pulmonary/Chest: Effort normal. She has wheezes. She has no rales. Lymphadenopathy: She has no cervical adenopathy. Skin: Skin is warm. No rash noted. ASSESSMENT and PLAN: Encounter Diagnoses 1. COPD exacerbation (491.21K) METHYLPREDNISOLONE ACETATE 80 MG/ML INJECTION, D EXAMETHASONE SODIUM PHOSPHATE 4 MG/ML INJECTION zithromax As ordered duoneb qid and prn documented in this encounter Plan of Treatment Not on filedocumented as of this encounter Visit Diagnoses Diagnosis COPD exacerbation - Primary Obstructive chronic bronchitis with exa cerbation documented in this encounter
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
--- OUTSIDE RECORDS SUMMARY | 2019-10-21 18:23 | XMS REPORT | Encounter Summary ---
Author Author [facility] Organization [facility] Address Unknown Phone Unavailable Care Team Providers Care Wood Casket Maker Name Role Phone King Robby Мария DISTRIBUTION OPERATIONS MANAGER Unavailable Phong Stephens MD PCP Unavailable Reason for Visit * Reason Comments Yeast Infection Encounter Details Care Team Description Date Type Department Jessica Christian Yeast Infection 03/28/2011 Telephone [facility] [address] [phone] Social History Date Tobacco Use [...] * Telephone Encounter - Jessica Christian - 03/28/2011 10:[address] Stephens treat with Diflucan 200mg daily x 5. documented in this encounter Plan of Treatment Not on filedocumented as of this encounter Visit Diagnoses Not on filedocumented in this encounter
--- OUTSIDE RECORDS SUMMARY | 2019-10-21 18:23 | XMS REPORT | Encounter Summary ---
Author Author [facility] Organization [facility] Address Unknown Phone Unavailable Care Team Providers Care Dashboard Developer Name Role Phone Robby Rajan CONSTANTIN Unavailable Phong Stephens MD PCP Unavailable Reason for Visit * Reason Comments Sinus Problem Encounter Details Care Team Description Date Type Department Phong Stephens MD NO ADDRESS ON FILE Acute sinusitis; Cough; Acute URI 03/16/2011 Office Visit [facility] [address] [phone] Social History Date Tobacco Use Types Packs/Day [...] Signs Reading Time Taken Comments Vital Sign 114/72 03/16/2011 2:11 PM CDT Blood Pressure 80 03/16/2011 2:11 PM CDT Pulse - - Temperature - - Respiratory Rate - - Oxygen Saturation - - Inhaled Oxygen Concentration 121.1 kg (267 lb) 03/16/2011 2:11 PM CDT Weight 160 cm (5' 3") 03/16/2011 2:11 PM CDT Height 47.3 03/16/2011 2:11 PM CDT Body Mass Index documented in this encounter Progress Notes * Phong Stephens MD - 03/19/2011 8:09 PM CDT Subjective: Ayden Odom is a 40 y.o. [...] prior to encounter Medication Sig Dispense Refill traMADol (ULTRAM) 50 mg Oral tablet Take 2 Tabs by mouth every 8 hours as ne eded for Pain. *NEW DIRECTIONS 02/27/11 MUST LAST 2 WEEKS. 60 Tab 0 warfarin (COUMADIN) 5 mg Oral tablet Take [...] mouth 2 times daily with connor culp. potassium chloride SR (K-DUR) 10 mEq Oral tablet Take 1 Tab by mouth 2 times daily. 60 Tab 11 gabapentin (NEURONTIN) 600 mg Oral tablet Take 1 Tab by mouth 3 times daily. 120 Tab 11 levalbuterol HFA (XOPENEX HFA) 45 mcg/Actuation Inhalation HFAA Take 2 Puffs by inhalation every 6 hours. 1 Inhaler 5 Insulin [facility], Disposable, (BD INSULIN PEN NEEDLE UF SHORT) [...] Odom complains of the following (by systems): Anxiety symptoms: report doing counseling and has stopped valium. 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 will not refill URI associated symtoms: sore throat, congestion, post nasal drip, ear pressure, sinus pressure and non productive cough x few days and worsening Review of Systems: ROS Denies all of the following: Headache Dizziness Chest pain Shortness of breath Bowel changes Bladder changes Pain in muscle or joints Exam/Objective: Normal Exam for Routine Visits: \\Blood pressure 114/72, pulse 80, height 5' 3" ( 1.6 m), weight 267 lb (121.11 kg). General appearance:overall more healthy appearing, active, alert, cooperative, s ocial, normally nourished, and in no acute distress Lungs: breath sounds equal, clear to auscultation bilaterally, no retractions, n o stridor, normal respiratory effort Heart: regular rate and rhythm, S1, S2 normal, no murmur, click, rub, gallop, or abnormal sounds. Abdomen: soft, non-tender. Bowel sounds normal. No masses, no organomegaly. Ac tive bowel sounds. Extremities: symmetrical non edematous. HEENT: congested, sinus tender, drainage. Assessment and Plan: ASSESSMENT: Encounter Diagnoses Name Primary? Acute sinusitis Cough Acute URI PLAN: Orders Placed This Encounter Prednisone (deltasone) 10 mg oral tablet Amoxicillin (amoxil) 500 mg oral capsule Loratadine (claritin) 10 mg oral tablet Fluticasone (flonase) 50 mcg/spray both nostril spsn NO MORE Valium Appropriate medications prescribed (see detailed AVS). Appropriate patient instructions provided (see detailed AVS). Follow-up as I have indicated. Medications and options explained to include common side effects. Understanding of medications, course, diagnosis, and expectations were expressed by patient/g uardian. documented in this encounter Plan of Treatment Not on filedocumented as of this encounter Visit Diagnoses Diagnosis Acute sinusitis Acute sinusitis, unspecified Cough Acute URI Acute upper respiratory infections of u nspecified site documented in this encounter
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
--- OUTSIDE RECORDS SUMMARY | 2019-10-21 18:23 | XMS REPORT | Encounter Summary ---
Author Author [facility] Organization [facility] Address Unknown Phone Unavailable Care Team Providers Care Ship Runner Name Role Phone Robby Rajan CONSTANTIN Unavailable Phong Stephens MD PCP Unavailable Encounter Details Care Team Description Date Type Department Phong Stephens MD NO ADDRESS ON FILE [facility], Lab Schedule 04/24/2011 Hospital [facility] General Encounter Laboratory Services [address] [address] Social History Date Tobacco Use [...] times tabletIndications: daily. Fibromyalgia 05/04/2010 05/18/2011 Insulin Beason, by 1 Package 11 Disposable, (BD INSULIN Misc.(Non-Miko PEN NEEDLE UF SHORT) 31 X g; Combo 5/16 " Misc Route) route. NdleIndications: Type II or unspecified type diabetes mellitus without mention of complication, not stated as uncontrolled documented as of this encounter Plan of Treatment Not on filedocumented as of this encounter Procedures Comments Procedure Name Priority Date/Time Associated Diag nosis PROTIME-INR Routine 04/24/2011 Pulmonary embol ism 11:18 AM MANAGER INFORMATION documented in this encounter Results * PROTIME-INR (04/24/2011 11:18 AM MANAGER INFORMATION) PROTIME 10.2 9.8 - 11.1 Sec [facility] ALYSA [place] LAB INR 0.98 (L)Comment: 2.0 - 3.0 [facility] ACCT#[id number], ,,,, RE[facility] LAB Specimen Blood specimen (specimen) Performing Organization Address City/State/Zipcode Ph one Number [facility] LABORATORY SERVICES CLIA# [id number] [place] [address] - ALYSA BRITTON [address] [place] [address] CLIA# [id number] [place] [address] [facility] [address] [place] [address] documented in this encounter Visit Diagnoses Diagnosis Pulmonary embolism Other pulmonary embolism and infarction documented in this encounter
--- OUTSIDE RECORDS SUMMARY | 2019-10-21 18:23 | XMS REPORT | Encounter Summary ---
Author Author [facility] Organization [facility] Address Unknown Phone Unavailable Care Team Providers Care Hydraulic Elevator Constructor Name Role Phone Robby Rajan CONSTANTIN Unavailable Phong Stephens MD PCP Unavailable Reason for Visit * Reason Comments Diabetes lab results Cholesterol Problem Encounter Details Care Team Description Date Type Department Phong Stephens MD NO ADDRESS ON FILE DM w/o complication type II; Hyperlipidemia 02/21/2011 Office Visit [facility] [address] [address] Social History Date Tobacco Use [...] Reading Time Taken Comments Vital Sign 112/64 02/21/2011 3:38 PM CDT Blood Pressure 60 02/21/2011 3:38 PM CDT Pulse - - Temperature - - Respiratory Rate - - Oxygen Saturation - - Inhaled Oxygen Concentration 128.8 kg (284 lb) 02/21/2011 3:38 PM CDT Weight 161.3 cm (5' 3.5") 02/21/2011 3:38 PM CDT Height 49.52 02/21/2011 3:38 PM CDT Body Mass Index documented in this encounter Progress Notes * Phong Stephens MD - 02/21/2011 4:21 PM CDT Subjective: Ayden Odom is a [...] prior to encounter Medication Sig Dispense Refill warfarin (COUMADIN) 5 mg Oral tablet Take 1 Tab by mouth. 2 tabs daily x 2 c onsecutive days then 1 tab x 1 day and repeat cycle 50 Tab 2 ibuprofen (MOTRIN) 800 mg Oral tablet Take 1 Tab by mouth 3 times daily with meals. 100 Tab 1 atorvastatin (LIPITOR) 20 mg Oral tablet Take 1 Tab by mouth Daily LATE. 30 Tab 5 OXcarbazepine (TRILEPTAL) 150 mg Oral tablet Take 150 mg by mouth 2 times da cornell. citalopram (CELEXA) 20 mg Oral tablet Take 20 mg by mouth. One and 1/2 tab e very am and two tabs at hs acetaminophen (TYLENOL EXTRA STRENGTH) 500 mg Oral tablet Take 1-2 Tabs by m outh every 6 hours as needed for Pain. 100 Tab 2 ALPRAZolam (XANAX) 1 mg Oral tablet Take 1 mg by mouth see administration in structions. 1mg tid and 2mg hs traMADol (ULTRAM) 50 mg Oral tablet Take 1-2 Tabs by mouth every 6 hours as needed for Pain. 60 Tab 2 loratadine (CLARITIN) 10 mg Oral tablet Take 1 Tab by mouth daily. 30 Tab 3 tiotropium (SPIRIVA) 18 mcg Inhalation capsule Take 18 mcg by inhalation cathleen ly. fluticasone (FLONASE) 50 mcg/spray Both Nostril SpSn Administer 2 Sprays in each nostril daily. 1 Bottle 5 furosemide (LASIX) 40 mg Oral tablet Take [...] every 6 hours. 1 Inhaler 5 Insulin Arena, Disposable, (BD INSULIN PEN NEEDLE UF SHORT) 31 X 5/16 " Mi sc Ndle by Misc.(Non-Drug; Combo Route) route. 1 Package 11 topiramate (TOPAMAX) 100 mg Oral tablet Take 1 Tab by mouth 2 times daily. 60 Tab 5 Oxygen-Air Delivery Systems Misc Leisa Take 2 L/min by inhalation daily at be [facility]. ACCU-CHEK ACTIVE CARE Misc Kit by See Admin Instructions route. Before meals , at bedtime, and as needed Lab Results Component Value Date HEMOGLOBIN A1C 5.2 02/21/2011 HEMOGLOBIN A1C 5.7 01/06/2011 HEMOGLOBIN A1C 5.5 06/15/2010 MICROALBUMIN, URINE 5.9 01/06/2011 LDL CHOLESTEROL, DIRECT 183* 01/06/2011 CREATININE 1.03* 02/21/2011 Lab Results Component Value Date CREATININE 1.03* 02/21/2011 BUN 11.0 02/21/2011 SODIUM 134* 02/21/2011 POTASSIUM 3.6 02/21/2011 CHLORIDE 103 02/21/2011 CO2 25.2 02/21/2011 GFR 64 02/21/2011 HPI: Ms. Odom complains of the following (by systems): Arthritis symptoms: diffuse arthralgias and hands seem worse since restarting li pitor. Diabetes Type II complaints: patient is asymptomatic, is compliant with meds a nd diet; glucose monitoring is usually in normal ranges, occ lower sugar and diego l reduce lantus to 40 hs and 20 am Review of Systems: ROS Denies all of the following: Headache Dizziness Chest pain Shortness of breath Bowel changes Bladder changes Pain in muscle or joints Exam/Objective: Normal Exam for Routine Visits: \\Blood pressure 112/64, pulse 60, height 5' 3.5" (1.613 m), weight 284 lb (128.822 kg). General appearance: healthy appearing, active, alert, [...] Name Primary? DM w/o complication type II Hyperlipidemia PLAN: Orders Placed This Encounter Cmp (3 months x 1) Lipid panel (3 months x 1) Hemoglobin a1c (3 months x 1) Diet, reduce lantus, d/c lipitor x few weeks Appropriate medications prescribed (see detailed AVS). Appropriate patient instructions provided (see detailed AVS). Follow-up as I have indicated. Medications and options explained to include common side effects. Understanding of medications, course, diagnosis, and expectations were expressed by patient/g uardian. documented in this encounter Plan of Treatment Not on filedocumented as of this encounter Results * HEMOGLOBIN A1C (05/23/2011 10:18 AM SUSTAINABILITY OFFICER) HEMOGLOBIN A1C 5.3 0 - 6.0 % [facility] ALYSA REBA LAB GLUCOSE, MEAN 102Comment: [facility],[place] mg/dl [facility] BLOOD ACCT#[id number], ,,,, [facility] [place] [facility] Specimen Blood specimen (specimen) Performing Organization Address City/State/Zipcode Ph one Number [facility] LABORATORY SERVICES CLIA# [id number] [place] [address] - ALYSA BRITTON [address] [place] [address] CLIA# [id number] [place] [address] * LIPID PANEL (05/23/2011 10:18 AM SUSTAINABILITY OFFICER) [facility] CHOLESTEROL 226 (H) 140 - 200 mg/dl [facility] LAB TRIGLYCERIDE 236 (H) 0 - 199 mg/dl [facility] Comment: [facility]ENCE [facility] TRIGLYCERIDES NORMAL LESS THAN 150 mg/dl BORDERLINE HIGH 150 - 199 mg/dl HIGH 200 - 499 mg/dl VERY HIGH GREATER THAN OR = 500 mg/dl HDL 43 29 - 89 mg/dl [facility] LAB LDL 127 <130 mg/dl [facility] CHOLESTEROL, Comment: [facility] DIRECT [place] LAB RISK CATEGORY LDL GOAL High risk: <100 mg/dl CHD or CHD risk equivalents (optional goal: <70 mg/dl) (10-year risk > 20%) Moderately high risk <130 mg/dl 2+ risk factors (10-year risk 10% to 20%) Moderate risk: <130 mg/dl 2+ risk factors (10-year risk < 10%) Lower risk: <160 mg/dl 0-1 risk factor [facility] ACCT#[id number], ,,,, Specimen Blood specimen (specimen) Performing Organization Address City/State/[facility] Ph one Number [facility] LABORATORY SERVICES CLIA# [id number] [place] [address] - ALYSA BRITTON [address] [place] [address] CLIA# [id number] [place] S [address] * COMPREHENSIVE METABOLIC PANEL (05/23/2011 10:18 AM SUSTAINABILITY OFFICER) [facility] Signature GLUCOSE 95 70 - 100 mg/dl [facility] ALYSA [facility]TON LAB BUN 21.0 (H) 7 - 20 mg/dl [facility] ALYSA BR[facility]TON [facility] CREATININE 0.94 0.6 - 1.0 mg/dl [facility] ALYSA BR[facility] BUN/CREAT RATIO 22.3 (H) 10 - 20 [facility] ALYSA BR[facility]TON [facility] GFR 71 >60 ml/min [facility] AL[facility] SODIUM 137 134 - 145 mmol/L [facility] ALYSA [facility] POTASSIUM 4.1 3.3 - 4.8 mmol/L [facility] ALYSA [facility] CHLORIDE 106 98 - 107 mmol/L [facility] ALYSA BR[facility]TON [facility] CO2 21.9 (L) 22 - 31 mmol/L [facility] ALYSA BRITTON [facility] ANION GAP 13 4 - 20 [facility] ALYSA BR[facility] CALCIUM 8.3 (L) 8.5 - 10.1 mg/dl [facility] ALYSA BR[facility]TON [facility] ALBUMIN 3.5 3.4 - 5.0 g/dl [facility] ALYSA BRITTON [facility] TOTAL PROTEIN 7.0 6.4 - 8.2 g/dl [facility] ALYSA BR[facility] GLOBULIN (CALC) 3.5 [facility] ALYSA BR[facility]TON [facility] ALBUMIN/GLOBULI 1.0 [facility] N RATIO [place] ALYSA BRITTON LAB BILIRUBIN TOTAL 0.2 <1.1 mg/dl [facility] ALYSA BR[facility] ALKALINE 113 50 - 136 IU/L [facility] PHOSPHATASE [place] ALYSA BRITTON LAB AST 12 10 - 40 IU/L [facility] ALYSA BRITTON LAB ALT 39Comment: [facility]GEN[facility]MENTE BOSS 25 - 70 IU/L [facility] ACCT#[id number], ,,,, CENTER ALYSA BRITTON LAB Specimen Blood specimen (specimen) Performing Organization Address City/State/Zipcode Ph one Number [facility] LABORATORY SERVICES CLIA# [id number] [place] [address] - ALYSA BRITTON [address] [facility] CLIA# [id number] [place] [address] documented in this encounter Visit Diagnoses Diagnosis Type II or unspecified type diabetes me llitus without mention of complication, not stated as uncontrolled Hyperlipidemia Other and unspecified hyperlipidemia documented in this encounter
--- OUTSIDE RECORDS SUMMARY | 2019-10-21 18:23 | XMS REPORT | Encounter Summary ---
Author Author [facility] Organization [facility] Address Unknown Phone Unavailable Care Team Providers Care Power Technician Name Role Phone Robby Rajan CONSTANTIN Unavailable Phong Stephens MD PCP Unavailable Encounter Details Care Team Description Date Type Department Phong Stephens MD NO ADDRESS ON FILE [facility], Lab Schedule 04/06/2011 Hospital [facility] General Encounter Laboratory Services [address] [address] Social History Date Tobacco [...] Oral tablet by mouth 4 times daily. 04/06/2011 08/06/2012 ipratropium-albuterol Take 3 mL by [...] times Chest wall pain daily with meals. 04/01/2013 tiotropium (SPIRIVA) 18 Take 18 mcg [...] times tabletIndications: daily. Fibromyalgia 05/04/2010 05/18/2011 Insulin [place], by 1 Package 11 Disposable, (BD INSULIN Misc.(Non-Miko PEN NEEDLE UF SHORT) 31 X g; Combo 5/16 " Misc Route) route. NdleIndications: Type II or unspecified type diabetes mellitus without mention of complication, not stated as uncontrolled documented as of this encounter Plan of Treatment Not on filedocumented as of this encounter Procedures Comments Procedure Name Priority Date/Time Associated Diag nosis LIPID PANEL Stat 04/06/2011 Hyperlipidemia 9:32 AM CDT COMPREHENSIVE METABOLIC Stat 04/06/2011 Hyperl ipidemia PANEL 9:32 AM CDT documented in this encounter Results * LIPID PANEL (04/06/2011 9:32 AM CDT) [facility] CHOLESTEROL 277 (H) 140 - 200 mg/dl [facility] TRIGLYCERIDE 290 (H) 0 - 199 mg/dl [facility] Comment: [facility] REFERENCE RANGE - [facility] TRIGLYCERIDES NORMAL LESS THAN 150 mg/dl BORDERLINE HIGH 150 - 199 mg/dl HIGH 200 - 499 mg/dl VERY HIGH GREATER THAN OR = 500 mg/dl HDL 35 29 - 89 mg/dl [facility] LDL 163 (H) <130 mg/dl [facility] CHOLESTEROL, Comment: [facility] DIRECT REBA LAB RISK CATEGORY LDL GOAL High risk: <100 mg/dl CHD or CHD risk equivalents (optional goal: <70 mg/dl) (10-year risk > 20%) Moderately high risk <130 mg/dl 2+ risk factors (10-year risk 10% to 20%) Moderate risk: <130 mg/dl 2+ risk factors (10-year risk < 10%) Lower risk: <160 mg/dl 0-1 risk factor [facility] AC[facility]#[id number], ,,,, Specimen Blood specimen (specimen) Performing Organization Address City/State/[facility] Ph one Number [facility] CLIA# [id number] CLEMENTE RIOJAS [address] - ALYSA BRITTON [address] [place], [place] [address]IA# [id number] Milly RIOJAS [address] * COMPREHENSIVE METABOLIC PANEL (04/06/2011 9:32 AM CDT) [facility] GLUCOSE 98 70 - 100 mg/dl [facility] AL[facility]SA [facility] BUN 15.0 7 - 20 mg/dl [facility] CREATININE 0.89 0.6 - 1.0 mg/dl [facility] REBA LAB BUN/CREAT RATIO 16.9 10 - 20 [facility] AL[facility]SA BR[facility] GFR 75 >60 ml/min [facility] AL[facility]SA BR[facility] SODIUM 139 135 - 145 mmol/L [facility] REBA LAB POTASSIUM 4.2 3.3 - 4.8 mmol/L [facility] CHLORIDE 106 98 - 107 mmol/L [facility] CO2 23.0 22 - 31 mmol/L [facility] ANION GAP 14 4 - 20 [facility] CALCIUM 8.2 (L) 8.5 - 10.1 mg/dl [facility] ALYSA BRIT[facility] ALBUMIN 3.7 3.4 - 5.0 g/dl [facility] ALYSA BRIT[facility] TOTAL PROTEIN 7.1 6.4 - 8.2 g/dl [facility] AL[facility] GLOBULIN (CALC) 3.4 [facility] ALYSA BR[facility] ALBUMIN/GLOBULI 1.1 [facility] AL[facility] BR[facility] BILIRUBIN TOTAL 0.2 <1.1 mg/dl [facility] AL[facility]SA BR[facility] ALKALINE 125 50 - 136 IU/L [facility] PHOSPHATASE [place] [facility] AST 18 10 - 40 IU/L [facility] AL[facility] ALT 40Comment: [facility] 25 - 70 IU/L [facility] ACCT#[id number], ,,,, CENTER ALYSA BRITTON LAB Specimen Blood specimen (specimen) Performing Organization Address City/State/Zipcode Ph one Number [facility] CLIA# [id number] CLEMENTE RIOJAS [address] - ALYSA BRITTON [address] [place] [address] CLIA# [id number] Milly RIOJAS [address] [address] [address] [address] [place] [address] documented in this encounter Visit Diagnoses Diagnosis Hyperlipidemia Other and unspecified hyperlipidemia documented in this encounter
--- OUTSIDE RECORDS SUMMARY | 2019-10-21 18:24 | XMS REPORT | Encounter Summary ---
Author Author [facility] Organization [facility] Address Unknown Phone Unavailable Care Team Providers Care Cocoa Room Operator Name Role Phone Franco Rajanory Мария KILLIAN Unavailable Phong Stephens MD PCP Unavailable Reason for Visit * Reason Comments Canceled Order Encounter Details Care Team Description Date Type Department Brittany Apple Canceled Order 02/07/2011 Telephone [facility] Primar y Care [address] [address] Social History Date Tobacco Use Types Packs/Day Years Used Quit: 02/06/2011 Former Smoker Cigarettes 0.5 27 Smokeless Tobacco: Never [...] * Telephone Encounter - Brittany Apple - 02/07/2011 2:12 PM CDT Pt called 15 minutes prior to appt stating she did not have transportation to ap pt. Appt rescheduled. documented in this encounter Plan of Treatment Not on filedocumented as of this encounter Visit Diagnoses Not on filedocumented in this encounter
--- OUTSIDE RECORDS SUMMARY | 2019-10-21 18:24 | XMS REPORT | Encounter Summary ---
Author Author [facility] Organization [facility] Address Unknown Phone Unavailable Care Team Providers Care Zipper Lining Folder Name Role Phone Franco Rajanory Мария KILLIAN Unavailable Phong Stephens MD PCP Unavailable Reason for Visit * Reason Comments Medication Refill Encounter Details Care Team Description Date Type Department Brittany Apple 01/20/2011 Refill [facility] Primar [address] [address] Social History Date Tobacco Use Types Packs/Day Years Used Current Every Day Smoker Cigarettes 0.5 27 Smokeless Tobacco: Never Used Comments: STARTED SMOKING AGE 11 Drinks/Week oz/Week Comments Alcohol Use "very rarely" Yes Sex Assigned at Date Recorded Not on file Industry Job Start Date Occupation Not on file Not on file Not on file Travel End Travel History Travel Start No recent travel history available. documented as of this encounter Miscellaneous Notes * Telephone Encounter - Brittany Apple - 01/20/2011 11:55 AM CDT Refill coumadin 5 mg si tabs x 2 days then 1 tab x 1 day and repeat regimen #90 with one refill called to haylee documented in this encounter Plan of Treatment Not on filedocumented as of this encounter Visit Diagnoses Not on filedocumented in this encounter
--- OUTSIDE RECORDS SUMMARY | 2019-10-21 18:24 | XMS REPORT | Encounter Summary ---
Author Author [facility] Organization [facility] Address Unknown Phone Unavailable Care Team Providers Care Jewellery Designer Name Role Phone King Robby Мария KILLIAN Unavailable Phong Stephens MD PCP Unavailable Reason for Visit * Reason Comments Results Encounter Details Care Team Description Date Type Department Brittany Apple Results 02/08/2011 Telephone [facility] Primar Care [place] [address] [place] [address] Social History Date Tobacco Use [...] * Telephone Encounter - Brittany Apple - 02/08/2011 12:46 PM CDT New order for cipro 500 mg one tab bid x 10 days e-scribed to [email or web address]. Pt noti fied. documented in this encounter Plan of Treatment Not on filedocumented as of this encounter Visit Diagnoses Not on filedocumented in this encounter
--- OUTSIDE RECORDS SUMMARY | 2019-10-21 18:24 | XMS REPORT | Encounter Summary ---
Author Author [facility] Organization [facility] Address Unknown Phone Unavailable Care Team Providers Care Job Superintendent Name Role Phone Robby Rajan CONSTANTIN Unavailable Phong Stephens MD PCP Unavailable Reason for Visit * Reason Comments Weight Check Encounter Details Care Team Description Date Type Department Phong Stephens MD NO ADDRESS ON FILE Bipolar disorder, unspecified; DM w/o complication type II; Obesity 01/19/2011 Office Visit [facility] Primar Care [address] [address] Social History Date Tobacco [...] Signs Reading Time Taken Comments Vital Sign 115/68 01/19/2011 2:53 PM CDT Blood Pressure 72 01/19/2011 2:53 PM CDT Pulse - - Temperature - - Respiratory Rate - - Oxygen Saturation - - Inhaled Oxygen Concentration 132.9 kg (293 lb) 01/19/2011 2:53 PM CDT Weight 161.3 cm (5' 3.5") 01/19/2011 2:53 PM CDT Height 51.09 01/19/2011 2:53 PM CDT Body Mass Index documented in this encounter Progress Notes * Phong Stephens MD - 01/19/2011 5:12 PM CDT Subjective: Ayden Odom is a [...] prior to encounter Medication Sig Dispense Refill acetaminophen (TYLENOL EXTRA STRENGTH) 500 mg Oral tablet Take 1-2 Tabs by m outh every 6 hours as needed for Pain. 100 Tab 2 ALPRAZolam (XANAX) 1 mg Oral tablet Take 1 mg by mouth see administration in structions. 1mg tid and 2mg hs atorvastatin (LIPITOR) 20 mg Oral tablet Take 20 mg by mouth Daily LATE. traMADol (ULTRAM) 50 mg Oral tablet Take 1-2 Tabs by mouth every 6 hours as needed for Pain. 60 Tab 2 loratadine (CLARITIN) 10 mg Oral tablet Take 1 Tab by mouth daily. 30 Tab 3 tiotropium (SPIRIVA) 18 mcg Inhalation capsule Take 18 mcg by inhalation cathleen ly. ibuprofen (MOTRIN) 800 mg Oral tablet Take 1 Tab by mouth 3 times daily with meals. 100 Tab 1 fluticasone (FLONASE) 50 mcg/spray Both Nostril SpSn [...] mouth 2 times daily with connor culp. warfarin (COUMADIN) 5 mg Oral tablet Take 1 Tab by mouth daily. 30 Tab prn potassium chloride SR (K-DUR) 10 mEq Oral tablet Take 1 Tab by mouth 2 times daily. 60 Tab 11 gabapentin (NEURONTIN) 600 mg Oral tablet Take 1 Tab by mouth 3 times daily. 120 Tab 11 levalbuterol HFA (XOPENEX HFA) 45 mcg/Actuation Inhalation HFAA Take 2 Puffs by inhalation every 6 hours. 1 Inhaler 5 Insulin [place], Disposable, (BD INSULIN PEN NEEDLE UF SHORT) [...] Odom complains of the following (by systems): presenting c/o obesity and wants phentermine. brought note from counselor raisa stewart this did not interfer with any of her psyche meds. discussed with counselr Mariel robertson Ayden has already been told this is not a good med for her. stephonmary has h x of med miss use and recent suicides jesters. although she says took "handfuls " of meds she did not seek help and seems to have adequate meds for ongoing use. friend with Ayden reports she eats lots of sweats. Review of Systems: MATILDE Has all of the following: Headache Dizziness Chest pain Shortness of breath Bowel changes Bladder changes Pain in muscle or joints Exam/Objective: Normal Exam for Routine Visits: \\Blood pressure 115/68, pulse 72, height 5' 3.5" (1.613 m), weight 293 lb (132.904 kg). General appearance: obese, chronically ill but more engage in conversttion appea ring, active, alert, cooperative, social, normally nourished, and in no acute di stress Lungs: breath sounds equal, clear to auscultation bilaterally, no retractions, n o stridor, normal respiratory effort Heart: regular rate and rhythm, S1, S2 normal, no murmur, click, rub, gallop, or abnormal sounds. Abdomen: soft, non-tender. Bowel sounds normal. No masses, no organomegaly. Ac tive bowel sounds. Extremities: symmetrical non edematous. Assessment and Plan: ASSESSMENT: Encounter Diagnoses Name Primary? Bipolar disorder, unspecified DM w/o complication type II Obesity PLAN: No orders of the defined types were placed in this encounter. Under no circumstance would I give her phentermine She can do calorie count , reduce sweets and discuss antidepressants with psyche for consideration of meds delaying wt loss Exercise, Appropriate medications prescribed (see detailed AVS). Appropriate patient instructions provided (see detailed AVS). Follow-up as I have indicated. Medications and options explained to include common side effects. Understanding of medications, course, diagnosis, and expectations were expressed by patient/g uardian. documented in this encounter Plan of Treatment Not on filedocumented as of this encounter Visit Diagnoses Diagnosis Bipolar disorder, unspecified Type II or unspecified type diabetes me llitus without mention of complication, not stated as uncontrolled Obesity Obesity, unspecified documented in this encounter
--- OUTSIDE RECORDS SUMMARY | 2019-10-21 18:24 | XMS REPORT | Encounter Summary ---
Author Author [facility] Organization [facility] Address Unknown Phone Unavailable Care Team Providers Care Machine Operations Supervisor Name Role Phone Robby Rajan CONSTANTIN Unavailable Phong Stephens MD PCP Unavailable Reason for Visit * Reason Comments Hand Pain Diabetes lab results'\\ Encounter Details Care Team Description Date Type Department Phong Stephens MD NO ADDRESS ON FILE DM w/o complication type II; Chronic airway obstruction, not elsewhere classified; Hyperlipidemia; Rheumatoid arthritis 01/06/2011 Office Visit [facility] Primar y Care [address] [address] Social History Date Tobacco Use [...] Reading Time Taken Comments Vital Sign 110/60 01/06/2011 9:51 AM CDT Blood Pressure 60 01/06/2011 9:51 AM CDT Pulse - - Temperature - - Respiratory Rate - - Oxygen Saturation - - Inhaled Oxygen Concentration 131.5 kg (290 lb) 01/06/2011 9:51 AM CDT Weight 160 cm (5' 3") 01/06/2011 9:51 AM CDT Height 51.37 01/06/2011 9:51 AM CDT Body Mass Index documented in this encounter Progress Notes * Phong Stephens MD - 01/06/2011 3:46 PM CDT Subjective: Ayden Odom is a [...] mouth 2 times daily with m eals. warfarin (COUMADIN) 5 mg Oral tablet Take [...] every 6 hours. 1 Inhaler 5 Insulin [place], Disposable, (BD INSULIN PEN NEEDLE UF SHORT) 31 X 5/16 " Mi sc Ndle by Misc.(Non-Drug; Combo Route) route. 1 Package 11 OXcarbazepine (TRILEPTAL) 150 mg Oral tablet Take 300 mg by mouth 2 times da cornell. topiramate (TOPAMAX) 100 mg Oral tablet Take 1 Tab by mouth 2 times daily. 60 Tab 5 Oxygen-Air Delivery Systems Misc Leisa Take 2 L/min by inhalation daily at [facility]. ACCU-CHEK ACTIVE CARE Misc Kit by See Admin Instructions route. Before meals , at bedtime, and as needed Component Value Date HEMOGLOBIN A1C 5.7 01/06/2011 HEMOGLOBIN A1C 5.5 06/15/2010 HEMOGLOBIN A1C 6.3* 09/07/2009 MICROALBUMIN, URINE 5.9 01/06/2011 LDL CHOLESTEROL, DIRECT 183* 01/06/2011 CREATININE 0.93 01/06/2011 Component Value Date CHOLESTEROL 280* 01/06/2011 CHOLESTEROL 283* 02/26/2009 CHOLESTEROL 242* 05/31/2006 HDL 36 01/06/2011 HDL 31 02/26/2009 HDL 37 05/31/2006 LDL CHOLESTEROL, DIRECT 183* 01/06/2011 LDL CHOLESTEROL, DIRECT 152* 02/26/2009 LDL CHOLESTEROL, DIRECT 137* 05/31/2006 TRIGLYCERIDE 175 01/06/2011 TRIGLYCERIDE 484* 02/26/2009 TRIGLYCERIDE 307* 05/31/2006 ALT 39 01/06/2011 AST 15 01/06/2011 Component Value Date CREATININE 0.93 01/06/2011 BUN 19.0 01/06/2011 SODIUM 136 01/06/2011 POTASSIUM 3.9 01/06/2011 CHLORIDE 102 01/06/2011 CO2 24.2 01/06/2011 GFR 72 01/06/2011 Component Value Date ALT 39 01/06/2011 AST 15 01/06/2011 ALKALINE PHOSPHATASE 134 01/06/2011 BILIRUBIN TOTAL 0.2 01/06/2011 HPI: Ms. Odom complains of the following (by systems): Arthritis symptoms: diffuse arthralgias and having increased pain bilat hands. limits already restricted activity. says she can't even squeeze soft exercise ba ll without pain. hard to turn dial on washer but attendent does this most of ti me anyway. feet also bother her and limit walking some chel if barefoot. no inj uries recently Chest Pain symptoms: none Depression like symptoms: depressed mood, difficulty concentrating, fatigue, imp aired memory, insomnia and has been better recently. more emotional energy Diabetes Type II complaints: patient is asymptomatic, is compliant with meds a nd diet; glucose monitoring is usually in normal ranges Hypertension related symtoms/issues: taking medications as instructed, no side effects of medications, no chest pain on exertion, no dyspnea on exertion, no ed darnell reports taking coumadin reg but INR low and pattern is variable. ?? really taki ng vs improper or irratic vit K intake. no current sxs of clots. Review of Systems: ROS Some all of the following but not as frequent or intense Headache Dizziness Shortness of breath Bowel changes Bladder changes Exam/Objective: Normal Exam for Routine Visits: \\Blood pressure 110/60, pulse 60, height 5' 3" ( 1.6 m), weight 290 lb (131.543 kg). General appearance:obese, seated in wheelchair but more healthy appearing, activ e, alert, cooperative, social, normally nourished, and in no acute distress Lungs: breath sounds equal, clear to auscultation bilaterally, no retractions, n o stridor, normal respiratory effort Heart: regular rate and rhythm, S1, S2 normal, no murmur, click, rub, gallop, or abnormal sounds. Abdomen: soft, non-tender. Bowel sounds normal. No masses, no organomegaly. Ac tive bowel sounds. Extremities: symmetrical tr edematous. Hands symetrical, not swollen or red, c/o pain with rom and tendernss diffusely. Feet and legs less tender Ps\\yche:better clarity of thought and able to stay on task most of visit. Assessment and Plan: ASSESSMENT: Encounter Diagnoses Name Primary? DM w/o complication type II Chronic airway obstruction, not elsewhere classified Hyperlipidemia Rheumatoid arthritis PLAN: Orders Placed This Encounter Rheumatoid factor Sed rate Cmp (3 months x 1) Lipid panel (3 months x 1) DISCONTD: Pravastatin (pravachol) 40 mg oral tablet Short splint for R wrist at her request but discussed use it or lose concept abo ut stregth and energy. Recommended gradual exercise and assuming more of her own ADL duties Appropriate medications prescribed (see detailed AVS). Appropriate patient instructions provided (see detailed AVS). Follow-up as I have indicated. Medications and options explained to include common side effects. Understanding of medications, course, diagnosis, and expectations were expressed by patient/g viridianaian. documented in this encounter Plan of Treatment Not on filedocumented as of this encounter Results * LIPID PANEL (04/06/2011 9:32 AM CDT) [facility] CHOLESTEROL 277 (H) 140 - 200 mg/dl [facility] TRIGLYCERIDE 290 (H) 0 - 199 mg/dl [facility] Comment: [facility] REFERENCE RANGE - [facility] TRIGLYCERIDES NORMAL LESS THAN 150 mg/dl BORDERLINE HIGH 150 - 199 mg/dl HIGH 200 - 499 mg/dl VERY HIGH GREATER THAN OR = 500 mg/dl HDL 35 29 - 89 mg/dl [facility] LDL 163 (H) <130 mg/dl [facility] CHOLESTEROL, Comment: GRAMBLING ALYSA DIRECT REBA LAB RISK CATEGORY LDL GOAL High risk: <100 mg/dl CHD or CHD risk equivalents (optional goal: <70 mg/dl) (10-year risk > 20%) Moderately high risk <130 mg/dl 2+ risk factors (10-year risk 10% to 20%) Moderate risk: <130 mg/dl 2+ risk factors (10-year risk < 10%) Lower risk: <160 mg/dl 0-1 risk factor [facility] AC[facility]#[id number], ,,,, Specimen Blood specimen (specimen) Performing Organization Address City/State/[facility] Ph one Number [facility] CLIA# [id number] CLEMENTE RIOJAS [address] - ALYSA BRITTNO [address] [place] [address] CLIA# [id number] Milly RIOJAS S [address] * COMPREHENSIVE METABOLIC PANEL (04/06/2011 9:32 AM CDT) [facility] Signature GLUCOSE 98 70 - 100 mg/dl [facility] BUN 15.0 7 - 20 mg/dl [facility] CREATININE 0.89 0.6 - 1.0 mg/dl [facility] AL[facility] BR[facility] BUN/CREAT RATIO 16.9 10 - 20 [facility] AL[facility] GFR 75 >60 ml/min [facility] SODIUM 139 135 - 145 mmol/L [facility] POTASSIUM 4.2 3.3 - 4.8 mmol/L [facility] CHLORIDE 106 98 - 107 mmol/L [facility] CO2 23.0 22 - 31 mmol/L [facility] ANION GAP 14 4 - 20 [facility] CALCIUM 8.2 (L) 8.5 - 10.1 mg/dl [facility] AL[facility]SA [facility] ALBUMIN 3.7 3.4 - 5.0 g/dl [facility] TOTAL PROTEIN 7.1 6.4 - 8.2 g/dl [facility] GLOBULIN (CALC) 3.4 [facility] ALBUMIN/GLOBULI 1.1 [facility] N RATIO [facility] ALYSA BRITTON [facility] BILIRUBIN TOTAL 0.2 <1.1 mg/dl [facility] ALKALINE 125 50 - 136 IU/L [facility] PHOSPHATASE [facility] AST 18 10 - 40 IU/L [facility] REBA LAB ALT 40Comment: [facility] 25 - 70 IU/L [facility] ACCT#[id number], ,,,, [facility] REBA LAB Specimen Blood specimen (specimen) Performing Organization Address [facility] Ph one [facility] CLIA# [id number] [place]SA BRITTON [place] [address] [place] CLIA# [id number] Milly RIOJAS S [address] REBA LAB [address] [place] [address] * SEDIMENTATION RATE (02/21/2011 2:17 PM CDT) [facility] ESR 5Comment: [facility] - 20 mm/hr [facility] (SEDIMENTATION ACCT#[id number], ,,,, [facility] REBA LAB Specimen Blood specimen (specimen) Performing Organization Address City/[facility] Ph one Number [facility] CLIA# [id number] CLEMENTE RIOJAS [address] - [address] [place] CLIA# [id number] Milly RIOJAS S [address] * RHEUMATOID FACTOR (02/21/2011 2:17 PM CDT) Pathologist [facility] RHEUMATOID 7 <14 IU/mL [facility] FACTOR Comment: [facility] Test performed at [facility] DIAGNOSTICS [place] [address] [place] [address] Director: MARY LIMA DO,MPH [facility], ,,,, Specimen Blood specimen (specimen) Performing Organization Address City/State/Zipcode Ph one Number [facility] CLIA# [id number] CLEMENTE RIOJAS [address] - ALYSA BRITTON [address] [place], [place] [address]IA# [id number] Milly RIOJAS [address] [facility] [address] [place] [address] documented in this encounter Visit Diagnoses Diagnosis Type II or unspecified type diabetes me llitus without mention of complication, not stated as uncontrolled Chronic airway obstruction, not elsewhe re classified Hyperlipidemia Other and unspecified hyperlipidemia Rheumatoid arthritis(714.0) Rheumatoid arthritis documented in this encounter
--- OUTSIDE RECORDS SUMMARY | 2019-10-21 18:24 | XMS REPORT | Encounter Summary ---
Author Author [facility] Organization [facility] Address Unknown Phone Unavailable Care Team Providers Care Buzzsaw Operator Name Role Phone Robby Rajan Мария KILLIAN Unavailable Phong Stephens MD PCP Unavailable Encounter Details Care Team Description Date Type Department Phong Stephens MD NO ADDRESS ON FILE 01/06/2011 Anti-coag visit [facility] Primar Care [address] [address] Social History Date Tobacco Use [...]
--- OUTSIDE RECORDS SUMMARY | 2019-10-21 18:24 | XMS REPORT | Encounter Summary ---
Author Author [facility] Organization [facility] Address Unknown Phone Unavailable Care Team Providers Care Lodging Manager Name Role Phone Robby Rajan Мария KILLIAN Unavailable Phong Stephens MD PCP Unavailable Reason for Visit * Reason Comments Medication Refill Encounter Details Care Team Description Date Type Department Phong Stephens MD NO ADDRESS ON FILE 02/01/2011 Refill [facility] Primil y Care [address] [address] Social History Date Tobacco Use [...]
--- OUTSIDE RECORDS SUMMARY | 2019-10-21 18:24 | XMS REPORT | Encounter Summary ---
Author Author [facility] Organization [facility] Address Unknown Phone Unavailable Care Team Providers Care Affiliate Marketing Specialist Name Role Phone Robby Rajan CONSTANTIN Unavailable Phong Stephens MD PCP Unavailable Encounter Details Care Team Description Date Type Department Phong Stephens MD NO ADDRESS ON FILE [facility] [address] [address] Social History Date Tobacco [...] Oral tablet by mouth 4 times daily. 02/01/2011 atorvastatin (LIPITOR) 20 Take 20 mg by 0 mg Oral tablet mouth Daily LATE. 12/09/2010 02/27/2011 traMADol (ULTRAM) 50 mg Take 1-2 Tabs 60 Tab 2 Oral tabletIndications: by mouth Pain, lip, Chronic pain every 6 hours as needed for Pain. 12/07/2010 03/16/2011 loratadine (CLARITIN) 10 Take 1 Tab by 30 Tab 3 mg Oral mouth daily. tabletIndications: Acute URI 04/01/2013 tiotropium (SPIRIVA) 18 Take 18 mcg 0 mcg Inhalation capsule by inhalation daily. 11/11/2010 02/08/2011 ibuprofen (MOTRIN) 800 mg Take 1 Tab by 100 Tab 1 Oral tabletIndications: mouth 3 times Chest wall pain daily with meals. 09/08/2010 03/16/2011 fluticasone (FLONASE) 50 Administer 2 [...] AM & 40 units in PM 06/13/2010 01/20/2011 warfarin (COUMADIN) 5 mg Take 1 Tab by 30 Tab 0 Oral tablet mouth daily. 06/13/2010 06/15/2011 potassium chloride SR Take 1 Tab by 60 Tab 11 (K-DUR) 10 mEq Oral mouth 2 times tablet daily. 06/13/2010 04/26/2011 gabapentin (NEURONTIN) Take 1 Tab by 120 Tab 11 600 mg Oral mouth 3 times tabletIndications: daily. Fibromyalgia 05/04/2010 05/18/2011 Insulin [place], by 1 Package 11 Disposable, (BD INSULIN Misc.(Non-Miok PEN NEEDLE UF SHORT) 31 X g; Combo 5/16 " Misc Route) route. NdleIndications: Type II or unspecified type diabetes mellitus without mention of complication, not stated as uncontrolled documented as of this encounter Miscellaneous Notes * Scanned Form - Ari Stanley Physician - 01/13/2011 11:53 AM CDT documented in this encounter Plan of Treatment Not on filedocumented as of this encounter Procedures Comments Procedure Name Priority Date/Time Associated Diag nosis XR WRIST 3+ VW LEFT Routine 01/12/2011 Pain in li mb 10:41 AM CDT documented in this encounter Results * XR WRIST 3+ VW LEFT (01/12/2011 10:41 AM CDT) Specimen Impressions Performed At : No acute abnormality. Narrative Performed At Diagnosis: PAIN IN LIMB LEFT WRIST: AP, lateral and oblique views show no a cute fracture or subluxation. Small sclerotic densities noted in the distal radial metaphyseal region likely due to bone island. Degenerati ve change involving the radial carpal joint space noted. Procedure Note Macho Barrios MD - 01/12/2011 3:56 PM CDT Diagnosis: PAIN IN LIMB LEFT WRIST: AP, lateral and oblique views show no acute fracture or subluxation. Small sclerotic densities noted in the distal radial metaphyseal region likely due to bone island. Degenerative change involving the radial carpal joint space noted. IMPRESSION: No acute abnormality. documented in this encounter Visit Diagnoses Diagnosis Pain in limb Pain in soft tissues of limb documented in this encounter
--- OUTSIDE RECORDS SUMMARY | 2019-10-21 18:24 | XMS REPORT | Encounter Summary ---
Author Author [facility] Organization [facility] Address Unknown Phone Unavailable Care Team Providers Care Equipment Service Associate Name Role Phone King Robby Мария ACADEMIC SUCCESS COORDINATOR Unavailable Phong Stephens MD PCP Unavailable Reason for Visit * Reason Comments Wrist Pain Encounter Details Care Team Description Date Type Department Jessica Christian Wrist Pain 01/13/2011 Telephone [facility] [address] [place] [address] Social History Date Tobacco Use [...] * Telephone Encounter - Jessica Christian - 01/13/2011 12:[address] Stephens ice and elevate wrist. documented in this encounter Plan of Treatment Not on filedocumented as of this encounter Visit Diagnoses Not on filedocumented in this encounter
--- OUTSIDE RECORDS SUMMARY | 2019-10-21 18:24 | XMS REPORT | Encounter Summary ---
Author Author [facility] Organization [facility] Address Unknown Phone Unavailable Care Team Providers Care Chief Medical Director Name Role Phone Robby Rajan CONSTANTIN Unavailable Phong Stephens MD PCP Unavailable Reason for Visit * Reason Comments Back Pain fellout of bed this am Encounter Details Care Team Description Date Type Department Phong Stephens MD NO ADDRESS ON FILE Lumbar back pain (Primary Dx) 01/10/2011 Office Visit [facility] Primar Care [address] [id number] Social History Date Tobacco Use Types Packs/Day [...] Signs Reading Time Taken Comments Vital Sign 128/80 01/10/2011 9:21 AM CDT Blood Pressure - - Pulse - - Temperature - - Respiratory Rate - - Oxygen Saturation - - Inhaled Oxygen Concentration 131.5 kg (290 lb) 01/10/2011 9:21 AM CDT Weight 160 cm (5' 3") 01/10/2011 9:21 AM CDT Height 51.37 01/10/2011 9:21 AM CDT Body Mass Index documented in this encounter Progress Notes * Phong Stephens MD - 01/10/2011 7:57 PM CDT HISTORY OF PRESENT ILLNESS Ayden Odom, a 40 y.o. female. Back Pain This is a new problem. The current episode started 3 to 5 hours ago. The problem occurs constantly. The problem has not changed since onset. The pain is associa ari with falling (fell from nl height bed this am. not sure why. no seizure). The pain is present in the lumbar spine and sacro-iliac joint. The quality of th e pain is described as shooting. The pain does not radiate. The pain is moderate . The symptoms are aggravated by bending and twisting. Pertinent negatives inclu de no numbness, no abdominal pain, no bowel incontinence and no dysuria. She has tried nothing for the symptoms. Risk factors include obesity, lack of exercise and a sedentary lifestyle. REVIEW OF SYSTEMS Review of Systems Constitutional: No acute systemic sxs changes HENT: Negative. Cardiovascular: Negative. Gastrointestinal: Negative for abdominal pain. Genitourinary: Negative for dysuria. Musculoskeletal: Positive for back pain. Neurological: Negative for numbness. PHYSICAL EXAM BP 128/80 | Ht 5' 3" (1.6 m) | Wt 290 lb (131.543 kg) | BMI 51.37 kg/m2 Physical Exam Constitutional: obess and chronic ill HENT: Head: Normocephalic and atraumatic. Eyes: Pupils are equal, round, and reactive to light. Neck: Normal range of motion. Neck supple. Cardiovascular: Normal rate and regular rhythm. Pulmonary/Chest: Effort normal and breath sounds normal. Abdominal: Soft. Bowel sounds are normal. She exhibits no distension. No tendern ess. Musculoskeletal: She exhibits tenderness (tender bilat low back mid lower lumbar and R SI greatest area tender). She exhibits no edema. Neurological: She is alert. She displays normal reflexes. No cranial nerve defic it. Coordination normal. ASSESSMENT and PLAN: Encounter Diagnoses 1. Lumbar back pain (724.2AX) XR LUMBAR SPINE 2 OR 3 VW, acetaminophen (TYLENOL EXTRA STRENGTH) 500 mg Oral tablet documented in this encounter Plan of Treatment Not on filedocumented as of this encounter Results * XR LUMBAR SPINE 2 OR 3 VW (01/10/2011 10:15 AM CDT) Specimen Impressions Performed At : Mild degenerative disc change similar i n appearance to 12-23-10. Narrative Performed At Diagnosis: LUMBAR BACK PAIN LUMBAR SPINE: AP, lateral and lateral cone down views obtained. Exam limited by large body habitus. The inferior vena cava bird's nest type filter noted. Prior cholecystectomy noted. No fract ure or subluxation is identified. Mild degenerative disc change is presen t at the lumbosacral junction similar in degree to 12-23-10. Procedure Note Macho Barrios MD - 01/11/2011 2:07 PM CDT Diagnosis: LUMBAR BACK PAIN LUMBAR SPINE: AP, lateral and lateral cone down views obtained. Exam limited by large body habitus. The inferior vena cava bird's nest type filter noted. Prior cholecystectomy noted. No fracture or subluxation is identified. Mild degenerative disc change is present at the lumbosacral junction similar in degree to 12-23-10. IMPRESSION: Mild degenerative disc change similar in appearance to 12-23-10. documented in this encounter Visit Diagnoses Diagnosis Lumbar back pain - Primary Lumbago documented in this encounter
--- OUTSIDE RECORDS SUMMARY | 2019-10-21 18:24 | XMS REPORT | Encounter Summary ---
Author Author [facility] Organization [facility] Address Unknown Phone Unavailable Care Team Providers Care Automatic Equipment Technician Name Role Phone King Robby Мария KILLIAN Unavailable Phong Stephens MD PCP Unavailable Encounter Details Care Team Description Date Type Department Phong Stephens MD NO ADDRESS ON FILE 02/08/2011 Abstract [facility] Primar Care [address] [phone] Social History Date Tobacco Use [...]
--- OUTSIDE RECORDS SUMMARY | 2019-10-21 18:24 | XMS REPORT | Encounter Summary ---
Author Author [facility] Organization [facility] Address Unknown Phone Unavailable Care Team Providers Care Crap Game Box Person Name Role Phone Robby Rajan CONSTANTIN Unavailable Phong Stephens MD PCP Unavailable Encounter Details Care Team Description Date Type Department Phong Stephens MD NO ADDRESS ON FILE [facility], Lab Schedule 01/06/2011 Hospital [facility] General Encounter Laboratory Services [address] [phone] Social History Date Tobacco Use [...] times tabletIndications: daily. Fibromyalgia 05/04/2010 05/18/2011 Insulin [place], by 1 Package 11 Disposable, (BD INSULIN Misc.(Non-Miko PEN NEEDLE UF SHORT) 31 X g; Combo /16 " Misc Route) route. NdleIndications: Type II or unspecified type diabetes mellitus without mention of complication, not stated as uncontrolled documented as of this encounter Plan of Treatment Not on filedocumented as of this encounter Procedures Comments Procedure Name Priority Date/Time Associated Diag nosis MICROALBUMIN/CREATININE Stat 01/06/2011 DM w/o complication type RATIO, RANDOM UR 9:40 AM CDT II PROTIME-INR Routine 01/06/2011 Embolism and th rombosis 9:36 AM CDT of unspecified site HEMOGLOBIN A1C Stat 01/06/2011 DM w/o complica tion type 9:36 AM CDT II LIPID PANEL Stat 01/06/2011 Hyperlipidemia 9:36 AM CDT COMPREHENSIVE METABOLIC Stat 01/06/2011 Hyperl ipidemia PANEL 9:36 AM CDT documented in this encounter Results * MICROALBUMIN/CREATININE RATIO, RANDOM UR (01/06/2011 9:40 AM CDT) MICROALBUMIN, 5.9 mg/L [facility] Creatinine, 62 mg/dl [facility] MICROALBUMIN/CR 9.5 <30 ug/mg [facility] EAT RATIO, UR Comment: [facility] UNITS OF MEASURE: ug/mg [place] [facility] Creatinine THE [employer] DEFINES ABNORMALITIES IN ALBUMIN EXCRETION FOLLOWS: CATEGORY RESULT (ug/mg Creatinine) NORMAL < 30 MICROALBUMINURIA 30 - 299 CLINICAL ALBUMINURIA > OR = 300 THE ADA RECOMMENDS THAT AT LEAST TWO OF THREE SPECIMENS COLLECTED WITHIN A 3-6 MONTH PERIOD BE ABNORMAL BEFORE CONSIDERING A PATIENT TO BE WITHIN A DIAGNOSTIC CATEGORY. [facility] AC[facility]#[id number], ,,,, Specimen Urine specimen (specimen) Performing Organization Address [facility] Ph one Number [facility] CLIA# [id number] CLEMENTE RIOJAS [phone] - ALYSA BRITTON [address] [place] [address] CLIA# [id number] Milly RIOJAS S [address] * PROTIME-INR (01/06/2011 9:36 AM CDT) PROTIME 10.1 9.8 - 11.1 Sec [facility] INR 0.97 (L)Comment: 2.0 - 3.0 [facility] ACCT#[id number], ,,,, [facility] Specimen Blood specimen (specimen) Performing Organization Address [facility] Ph one Number [facility] CLIA# [id number] CLEMENTE RIOJAS [address] - ALYSA REBA [address] [place] [address] CLIA# [id number] Milly RIOJAS [address] * LIPID PANEL (01/06/2011 9:36 AM CDT) [facility] CHOLESTEROL 280 (H) 140 - 200 mg/dl [facility] TRIGLYCERIDE 175 0 - 199 mg/dl [facility] Comment: [facility] TRIGLYCERIDES NORMAL LESS THAN 150 mg/dl [place] HIGH 150 - 199 mg/dl HIGH 200 - 499 mg/dl VERY HIGH GREATER THAN OR = 500 mg/dl HDL 36 29 - 89 mg/dl [facility] LDL 183 (H) <130 mg/dl [facility] CHOLESTEROL, Comment: [facility] DIRECT [place] [facility] RISK CATEGORY LDL GOAL High risk: <100 mg/dl CHD or CHD risk equivalents (optional goal: <70 mg/dl) (10-year risk > 20%) Moderately high risk <130 mg/dl 2+ risk factors (10-year risk 10% to 20%) Moderate risk: <130 mg/dl 2+ risk factors (10-year risk < 10%) Lower risk: <160 mg/dl 0-1 risk factor [facility] AC[facility]#[id number], ,,,, Specimen Blood specimen (specimen) Performing Organization Address [facility] one Number [facility] CLIA# [id number] CLEMENTE RIOJAS [address] [address] - [address] [place] CLIA# [id number] ALYSA REBA S [id number] [facility] [address] [place] [address] * HEMOGLOBIN A1C (01/06/2011 9:36 AM CDT) [facility] HEMOGLOBIN A1C 5.7 0 - 6.0 % [facility] ALYSA BRITTON LAB GLUCOSE, MEAN 117Comment: [facility] mg/dl [facility] BLOOD ACCT#[id number], ,,,, CENTER [facility] Specimen Blood specimen (specimen) Performing Organization Address [facility] one Number [facility] CLIA# [id number] CLEMENTE RIOJAS [phone] - [facility] REBA [address] [place] [address] [place] CLIA# [id number] ALYSA REBA S [address] [facility] [address] [place] [address] * COMPREHENSIVE METABOLIC PANEL (01/06/2011 9:36 AM CDT) GLUCOSE 84 70 - 100 mg/dl [facility] BUN 19.0 7 - 20 mg/dl [facility] CREATININE 0.93 0.6 - 1.0 mg/dl [facility] BUN/CREAT RATIO 20.4 (H) 10 - 20 [facility] ALYSA [facility] GFR 72 >60 ml/min [facility] ALYSA BRITTON [facility] SODIUM 136 135 - 145 mmol/L [facility] ALYSA BRITTON [facility] POTASSIUM 3.9 3.3 - 4.8 mmol/L [facility] ALYSA BRITTON [facility] CHLORIDE 102 98 - 107 mmol/L [facility] ALYSA BRITTON [facility] CO2 24.2 22 - 31 mmol/L [facility] ALYSA BRITTON [facility] ANION GAP 14 4 - 20 [facility] ALYSA BRITTON [facility] CALCIUM 8.3 (L) 8.5 - 10.1 mg/dl [facility] ALYSA BRITTON [facility] ALBUMIN 3.6 3.4 - 5.0 g/dl [facility] ALYSA BRITTON LAB TOTAL PROTEIN 7.1 6.4 - 8.2 g/dl [facility] ALYSA BRITTON [facility] GLOBULIN (CALC) 3.5 [facility] ALYSA [facility] ALBUMIN/GLOBULI 1.0 [facility] ALYSA BRITTON LAB BILIRUBIN TOTAL 0.2 <1.1 mg/dl [facility] ALYSA BRITTON [facility] ALKALINE 134 50 - 136 IU/L [facility] PHOSPHATASE MIMBRES ALYSA BRITTON LAB AST 15 10 - 40 IU/L [facility] ALYSA BRITTON [facility] ALT 39Comment: [facility] 25 - 70 IU/L [facility] ACCT#[id number], ,,,, CENTER AL[facility] BRIT[facility] Specimen Blood specimen (specimen) Performing Organization Address City/State/Zipcode Ph one Number [facility] CLIA# [id number] CLEMENTE RIOJAS [address] - ALYSA BRITTON [address] [place] [address] CLIA# [id number] Milly RIOJAS [id number] documented in this encounter Visit Diagnoses Diagnosis Hyperlipidemia Other and unspecified hyperlipidemia Type II or unspecified type diabetes me llitus without mention of complication, not stated as uncontrolled Embolism and thrombosis of unspecified site documented in this encounter
--- OUTSIDE RECORDS SUMMARY | 2019-10-21 18:24 | XMS REPORT | Encounter Summary ---
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 she contacted [facility] about the geodon then [facility] contacted the police. Police contacted EMS and brought pt to ER. Pt and EMS report she did not take any drugs or extra medications. pt does not want to harm herself at this time. Encounter Details Care Team Description Date Type Department Wyatt German MD [address] [id number] Depression 02/06/2011 Emergency [facility] Emergency Department [facility] 02/07/[address] [phone] Social History Date Tobacco Use [...] Reading Time Taken Comments Vital Sign 108/74 02/06/2011 11:39 PM CDT Blood Pressure 71 02/06/2011 11:39 PM CDT Pulse 36.6 C (97.8 F) 02/06/2011 10:01 PM CDT Temperature 15 02/06/2011 11:39 PM CDT Respiratory Rate 100% 02/06/2011 11:39 PM CDT Oxygen Saturation - - Inhaled Oxygen Concentration 131.5 kg (290 lb) 02/06/2011 10:01 PM CDT Weight 157.5 cm (5' 2") 02/06/2011 10:01 PM CDT Height 53.04 02/06/2011 10:01 PM CDT Body Mass Index documented in this encounter Discharge Instructions * Instructions* Sarita Pearl, RN - 02/06/2011 Take your medications as prescribed - do not take extra or overdose Follow up with Mental Health as needed Diet as tolerated Return to the ER as needed * Attachments The following attachments cannot be sent through Care Everywhere.* DEPRESSION TREATMENT: AFTER YOUR VISIT (CZECH) documented in this encounter Medications at Time [...] tablet by mouth 4 times daily. 02/08/2011 warfarin (COUMADIN) 5 mg Take 5 mg by 0 Oral tablet mouth. 2 tabs daily x 2 consecutive days then 1 tab x 1 day and repeat cycle 12/09/2010 02/27/2011 traMADol (ULTRAM) 50 mg Take [...] times tabletIndications: daily. Fibromyalgia 05/04/2010 05/18/2011 Insulin [place], by 1 Package 11 Disposable, (BD INSULIN Misc.(Non-Miko PEN NEEDLE UF SHORT) 31 X g; Combo 5/16 " Misc Route) route. NdleIndications: Type II or unspecified type diabetes mellitus without mention of complication, not stated as uncontrolled documented as of this encounter Procedure Notes * Aok Scanning, [facility] Physician - 02/07/2011 3:20 PM CDT Associated Order(s): TELEMETRY REPORT; TELEMETRY REPORT documented in this encounter ED Notes * Aok Scanning, [facility] - 05/16/2011 2:20 PM REFRIGERATION SPECIALIST Electronically signed by Rayray Elizalde Aok Transcriptions Incoming at 1 2:20 PM REFRIGERATION SPECIALIST * Aok Scanning, [facility] Physician - 02/07/2011 10:18 AM CDT * Sarita Pearl RN - 02/06/2011 11:54 PM CDT Pt has ride home and they have called and are on their way. [facility]. Pt is completely alert at this time. * Sarita Pearl RN - 02/06/2011 11:39 PM CDT Pt much more awake and talking now. Trying to arrange for ride home. documented in this encounter Plan of Treatment Not on filedocumented as of this encounter Procedures Comments Procedure Name Priority Date/Time Associated Diag nosis TELEMETRY REPORT 02/07/2011 3:20 PM CDT POC GLUCOSE Routine 02/06/2011 10:33 PM CDT URINALYSIS WITH REFLEX Stat 02/06/2011 CULTURE 9:50 PM CDT DRUG SCREEN, URINE Stat 02/06/2011 9:50 PM CDT URINE CULTURE Stat 02/06/2011 9:50 PM CDT documented in this encounter Results * TELEMETRY REPORT (02/07/2011 3:20 PM CDT) Narrative Performed At This result has an attachment that is n ot available. Procedure Note 02/07/2011 3:20 PM CDT * POC GLUCOSE (02/06/2011 10:33 PM CDT) POC GLUCOSE 94Comment: Jim Rain, 70 - 110 mg/dl [facility], Point of Care Site,,,, [facility] [place] [facility] POC GLUCOSE 94 70 - 110 mg/dl [facility] Specimen Capillary blood specimen (specimen) Performing Organization Address City/State/Zipcode Ph one Number [facility] CLIA# [id number] ALYSA BRITTON [place] [address] - ALYSA BRITTON [address] [place] [address] CLIA# [id number] Milly RIOJAS [address] * URINE CULTURE (02/06/2011 9:50 PM CDT) ORGANISM KLEBSIELLA PNEUMONIAE (A) [facility] URINE CULTURE COLONY COUNT: >100,000 (A) [facility] ORGANISM PSEUDOMONAS AERUGINOSA (A) [facility] URINE CULTURE COLONY COUNT: >100,000 (A) [facility] ORGANISM ENTEROCOCCUS SPECIES (A) [facility] AL[facility]SA [facility] URINE CULTURE COLONY COUNT: >100,000 (A) [facility] ALYSA [facility] Specimen Antibiotic Method Susceptibility Organism AMIKACIN DOMENICA MCG/ML <=2: Susceptible Klebsiella pneumoniae AMPICILLIN DOMENICA MCG/ML >=32: Resistant Klebsiella pneumoniae AMPICILLIN/ SULBACTAM DOMENICA MCG/ML 4: Susceptible Klebsiella pneumoniae CEFAZOLIN DOMENICA MCG/ML <=4: Susceptible Klebsiella pneumoniae CEFEPIME DOMENICA MCG/ML <=1: Susceptible Klebsiella pneumoniae CEFOXITIN DOMENICA MCG/ML <=4: Susceptible Klebsiella pneumoniae CEFTAZIDIME DOMENICA MCG/ML <=1: Susceptible Klebsiella pneumoniae CEFTRIAXONE DOMENICA MCG/ML <=1: Susceptible Klebsiella pneumoniae CIPROFLOXACIN DOMENICA MCG/ML <=0.25: Susceptible Klebsiella pneumoniae ERTAPENEM DOMENICA MCG/ML <=0.5: Susceptible Klebsiella pneumoniae GENTAMICIN DOMENICA MCG/ML <=1: Susceptible Klebsiella pneumoniae IMIPENEM DOMENICA MCG/ML <=1: Susceptible Klebsiella pneumoniae LEVOFLOXACIN DOMENICA MCG/ML <=0.12: Susceptible Klebsiella pneumoniae NITROFURANTOIN DOMENICA MCG/ML 64: Intermediate Klebsiella pneumoniae TOBRAMYCIN DOMENICA MCG/ML <=1: Susceptible Klebsiella pneumoniae TRIMETHOPRIM/ SULFAMETHOXAZOLE DOMENICA MCG/ML <=20: Susceptible Klebsiella pneumoniae AMIKACIN DOMENICA MCG/ML <=2: Susceptible Pseudomonas aeruginosa CEFEPIME DOMENICA MCG/ML <=1: Susceptible Pseudomonas aeruginosa CEFTAZIDIME DOMENICA MCG/ML 2: Susceptible Pseudomonas aeruginosa CEFTRIAXONE DOMENICA MCG/ML Resistant Pseudomonas aeruginosa CIPROFLOXACIN DOMENICA MCG/ML <=0.25: Susceptible Pseudomonas aeruginosa GENTAMICIN DOMENICA MCG/ML 2: Susceptible Pseudomonas aeruginosa IMIPENEM DOMENICA MCG/ML <=1: Susceptible Pseudomonas aeruginosa LEVOFLOXACIN DOMENICA MCG/ML 0.5: Susceptible Pseudomonas aeruginosa TOBRAMYCIN DOMENICA MCG/ML <=1: Susceptible Pseudomonas aeruginosa TRIMETHOPRIM/ SULFAMETHOXAZOLE DOMENICA MCG/ML 80: Resistant Pseudomonas aeruginosa AMPICILLIN DOMENICA MCG/ML <=2: Susceptible Enterococcus species CIPROFLOXACIN DOMENICA MCG/ML <=0.5: Susceptible Enterococcus species LEVOFLOXACIN DOMENICA MCG/ML 1: Susceptible Enterococcus species NITROFURANTOIN DOMENICA MCG/ML <=16: Susceptible Enterococcus species PENICILLIN DOMENICA MCG/ML 1: Susceptible Enterococcus species TETRACYCLINE DOMENICA MCG/ML >=16: Resistant Enterococcus species VANCOMYCIN DOMENICA MCG/ML 2: Susceptible Enterococcus species Comment: CLEMENTE ROBISON ACCT#[id number], ,,,, Performing Organization Address City/State/[facility] Ph one Number [facility] CLIA# [id number] CLEMENTE RIOJAS [address] - [address] CLIA# [id number] Milly RIOJAS [id number] * DRUG SCREEN, URINE (02/06/2011 9:50 PM CDT) AMPHETAMINE Negative [facility] HEALTH QUAL, URINE CENTER [facility] BARBITURATE Negative [facility] HEALTH QUAL, URINE [facility] [place] BENZODIAZEPINE Positive [facility] HEALTH QUAL, URINE CENTER [facility] COCAINE METAB Negative [facility] URINE CENTER AL[facility]SA [facility] CANNABINOIDS Negative [facility] QUAL, URINE CENTER [facility] METHADONE QUAL, Negative [facility] URINE CENTER [facility] OPIATE QUAL, Negative [facility] URINE BRUNING [facility] PCP QUAL, URINE Negative [facility] Comment: [facility] Chain of Custody Handling was [facility] not performed on this specimen. This screen will not meet medical-legal requirements. CUTOFF LIMITS Amphetamines 1000 ng/ml Barbiturates 200 ng/ml Benzodiazepines 200 ng/ml Cocaine metabolite 300 ng/ml Marijuana metabolites 50 ng/ml Methadone 300 ng/ml Opiates 2000 ng/ml PCP 25 ng/ml [facility] ACCT#[id number], ,,,, Specimen Urine specimen (specimen) Performing Organization Address [facility] one Number [facility] CLIA# [id number] CLEMENTE RIOJAS [address] - ALYSA [address]# [id number] Milly RIOJAS [id number] * URINALYSIS WITH REFLEX CULTURE (02/06/2011 9:50 PM CDT) GLUCOSE UA Negative Negative mg/dl [facility] BILIRUBIN UA Negative Negative [facility] KETONES UA Negative Negative mg/dl [facility] SPECIFIC 1.021 [facility] GRAVITY UA CENTER [facility] PH UA 6.5 [facility] PROTEIN UA 20 Negative mg/dl [facility] UROBILINOGEN UA 2.0 0.2 - 1.0 EU/dl [facility] NITRITE UA Negative Negative [facility] BLOOD UA Negative Negative [facility] LEUKOCYTE Moderate (H) Negative [facility] ESTERASE UA BRUNING [facility] COLOR UA Yellow [facility] CLARITY UA Hazy [facility] WBC UA 10-25 (H) 0 - 5 /HPF [facility] RBC UA 2-5 0 - 5 /HPF [facility] BACTERIA UA 3+ (H) Negative /HPF [facility] MUCOUS, URINE Light /LPF [facility] EPITHELIAL Rare squamous [facility] CELLS, URINE BRUNING [facility] AMORPHOUS 1+ Negative /HPF [facility] COMMENT, URINE See Culture Report.Comment: EUGENE Joaquim [facility] HOSPITALJaredCLEMENTE BOSS [facility] ACCT#[id number], ,,,, [facility] Specimen Urine, clean catch Performing Organization Address City/State/Zipcode Ph one Number [facility] CLIA# [id number] CLEMENTE RIOJAS [address] - ALYSA BRITTON [address] [place] [address] CLIA# [id number] [place]ly [place] [address] documented in this encounter Visit Diagnoses Diagnosis Depression Depressive disorder, not elsewhere clas sified documented in this encounter Administered Medications Action Date Dose Rate Site Medication Order MAR Action 02/06/2011 10:36 PM CDT 10 mL Hand, Le ft SODIUM CHLORIDE 0.9 % SYRINGE Given 1 dose, Starting Sun02/06/11 at 2223, Until Sun02/06/11 at 2236, Pearl OMNICELL: Cabinet Override, 02/06/2011 10:37 PM CDT 250 mL 500 mL/hr Hand, Le ft sodium chloride 0.9% bolus solution 250 Given mL 250 mL, IV, ONE TIME ONLY, 1 dose, Sun02/06/11 at 2230, at 500 mL/hr, Administe r over 30 Minutes, Stat documented in this encounter
--- OUTSIDE RECORDS SUMMARY | 2019-10-21 18:24 | XMS REPORT | Encounter Summary ---
Author Author [facility] Organization [facility] Address Unknown Phone Unavailable Care Team Providers Care Orthotic Finish Grinding Technician Name Role Phone Franco Rajanory Мария KILLIAN Unavailable Phong Stephens MD PCP Unavailable Reason for Visit * Reason Comments Wrist Pain Encounter Details Care Team Description Date Type Department Brittany Apple Wrist Pain 01/12/2011 Telephone [facility] Primar [address] [phone] Social History Date Tobacco Use [...] * Telephone Encounter - Brittany Apple - 01/12/2011 10:01 AM CDT Pt c/o left wrist pain after falling. Xray of left wrist ordered. documented in this encounter Plan of Treatment Not on filedocumented as of this encounter Visit Diagnoses Not on filedocumented in this encounter
--- OUTSIDE RECORDS SUMMARY | 2019-10-21 18:24 | XMS REPORT | Encounter Summary ---
Author Author [facility] Organization [facility] Address Unknown Phone Unavailable Care Team Providers Care Quality And Reliability Engineer Name Role Phone Robby Rajan APRN Unavailable Phong Stephens MD PCP Unavailable Reason for Visit * Reason Comments Medication Refill Encounter Details Care Team Description Date Type Department Brittany Apple Chest wall pain (Primary Dx) 02/08/2011 Refill [facility] Primar y Care [address] [phone] Social History Date Tobacco [...]
--- OUTSIDE RECORDS SUMMARY | 2019-10-21 18:24 | XMS REPORT | Encounter Summary ---
Author Author [facility] Organization [facility] Address Unknown Phone Unavailable Care Team Providers Care Senior Oracle Adf Developer Name Role Phone Robby Rajan CONSTANTIN Unavailable Phong Stephens MD PCP Unavailable Encounter Details Care Team Description Date Type Department Phong Stephens MD NO ADDRESS ON FILE Pain in limb (Primary Dx) 01/12/2011 Orders Only [facility] Primar y Care [address] [phone] Social History Date Tobacco Use [...] Diagnoses Diagnosis Pain in limb - Primary Pain in soft tissues of limb documented in this encounter
--- OUTSIDE RECORDS SUMMARY | 2019-10-21 18:24 | XMS REPORT | Encounter Summary ---
Author Author [facility] Organization [facility] Address Unknown Phone Unavailable Care Team Providers Care Regional Flatbed Truck Driver Name Role Phone Robby Rajan APRN Unavailable Phong Stephens MD PCP Unavailable Reason for Visit * Reason Comments Medication Refill Encounter Details Care Team Description Date Type Department Brittany Apple 02/08/2011 Refill [facility] [address] [phone] Social History Date Tobacco [...]
--- OUTSIDE RECORDS SUMMARY | 2019-10-21 18:24 | XMS REPORT | Encounter Summary ---
Author Author [facility] Organization [facility] Address Unknown Phone Unavailable Care Team Providers Care Coat Fitter Name Role Phone SatinderRobby Мария KILLIAN Unavailable Phong Stephens MD PCP Unavailable Reason for Visit * Reason Comments Other Self - DENIED. Encounter Details Care Team Description Date Type Department Rehana Valdivia Other (Self - DENIED. ) [facility] [address] [phone] Social History Date Tobacco Use [...] * Telephone Encounter - Rehana Valdivia - 01/16/2011 4:31 PM CDT Patient here wanting to change from Kvng Stephens to Dr. Carter per Self request DENIED. documented in this encounter Plan of Treatment Not on filedocumented as of this encounter Visit Diagnoses Not on filedocumented in this encounter
--- OUTSIDE RECORDS SUMMARY | 2019-10-21 18:24 | XMS REPORT | Encounter Summary ---
Author Author [facility] Organization [facility] Address Unknown Phone Unavailable Care Team Providers Care Home Performance Consultant Name Role Phone Robby Rajan CONSTANTIN Unavailable Phong Stephens MD PCP Unavailable Encounter Details Care Team Description Date Type Department Phong Stephens MD NO ADDRESS ON FILE [facility] [address] [phone] Social History Date Tobacco Use [...] times tabletIndications: daily. Fibromyalgia 05/04/2010 05/18/2011 Insulin [place], by 1 Package 11 Disposable, (BD INSULIN Misc.(Non-Miko PEN NEEDLE UF SHORT) 31 X g; Combo 5/16 " Misc Route) route. NdleIndications: Type II or unspecified type diabetes mellitus without mention of complication, not stated as uncontrolled documented as of this encounter Miscellaneous Notes * Scanned Form - Ari Stanley Physician - 01/11/2011 10:20 AM CDT documented in this encounter Plan of Treatment Not on filedocumented as of this encounter Procedures Comments Procedure Name Priority Date/Time Associated Diag nosis XR LUMBAR SPINE 2 OR 3 VW Routine 01/10/2011 Lumb ar back pain 10:15 AM CDT documented in this encounter Results * XR LUMBAR SPINE 2 OR 3 VW (01/10/2011 10:15 AM CDT) Specimen Impressions Performed At : Mild degenerative disc change similar i n appearance to --10. Narrative Performed At Diagnosis: LUMBAR BACK PAIN LUMBAR SPINE: AP, lateral and lateral cone down views obtained. Exam limited by large body habitus. The inferior vena cava bird's nest type filter noted. Prior cholecystectomy noted. No fract ure or subluxation is identified. Mild degenerative disc change is presen t at the lumbosacral junction similar in degree to 12-23-10. Procedure Note Macho aBrrios MD - 01/11/2011 2:07 PM CDT Diagnosis: [...] encounter Visit Diagnoses Diagnosis Lumbar back pain Lumbago documented in this encounter
--- OUTSIDE RECORDS SUMMARY | 2019-10-21 18:24 | XMS REPORT | Encounter Summary ---
Author Author [facility] Organization [facility] Address Unknown Phone Unavailable Care Team Providers Care Cutter Down Name Role Phone Robby Rajan AMPOULE EXAMINER Unavailable Phong Stephens MD PCP Unavailable Encounter Details Care Team Description Date Type Department Phong Stephens MD NO ADDRESS ON FILE Embolism and thrombosis of unspecified s ite (Primary Dx) 01/06/2011 Orders Only [facility] Primar y Care [place] [address] [place] [address] Social History Date Tobacco Use [...] as of this encounter Results * PROTIME-INR (01/06/2011 9:36 AM CDT) PROTIME 10.1 9.8 - 11.1 Sec [facility] INR 0.97 (L)Comment: 2.0 - 3.[address] [facility]#[id number], ,,,, [facility] Specimen Blood specimen (specimen) Performing Organization Address City/State/Zipcode Ph one Number [facility] CLIA# [id number] [place], [place] [address] - [place] [address] [facility] CLIA# [id number] Milly RIOJAS [id number] [facility] [address] [facility] documented in this encounter Visit Diagnoses Diagnosis Embolism and thrombosis of unspecified site - Primary documented in this encounter
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
--- OUTSIDE RECORDS SUMMARY | 2019-10-21 18:25 | XMS REPORT | Encounter Summary ---
Author Author [facility] Organization [facility] Address Unknown Phone Unavailable Care Team Providers Care Torch Shearer Name Role Phone Robby Rajan Мария KILLIAN Unavailable Phong Stephens MD PCP Unavailable Reason for Visit * Reason Comments Leg Pain Hand Pain LOW BACK PAIN Headache x4 days Encounter Details Care Team Description Date Type Department Phong Stephens MD NO ADDRESS ON FILE Chronic pain (Primary Dx); Pain, lip; Chest wall pain; Unspecified hereditary and idiopathic peripheral neuropathy; DM w/o complication type II 11/11/2010 Office Visit [facility] [address] [address] Social History Date Tobacco Use [...] Signs Reading Time Taken Comments Vital Sign 112/66 11/11/2010 2:53 PM CDT Blood Pressure - - Pulse - - Temperature - - Respiratory Rate - - Oxygen Saturation - - Inhaled Oxygen Concentration 122.5 kg (270 lb) 11/11/2010 2:53 PM CDT Weight 162.6 cm (5' 4") 11/11/2010 2:53 PM CDT Height 46.35 11/11/2010 2:53 PM CDT Body Mass Index documented in this encounter Progress Notes * Phong Stephens MD - 11/11/2010 8:42 PM CDT Subjective: Ayden Odom is a [...] 473.9G Non compliance with medical treatment V15.81AC Current outpatient prescriptions ordered prior to encounter Medication Sig Dispense Refill hydrOXYzine pamoate (VISTARIL) 25 mg Oral capsule Take 25 mg by mouth 3 time s daily as needed. mupirocin (BACTROBAN) 2 % Topical Oint Apply to affected area 2 times daily . 1 Tube 0 DISCONTD: traMADol (ULTRAM) 50 mg Oral tablet Take 1 Tab by mouth every 6 ho urs as needed for Pain. 30 Tab 0 loratadine (CLARITIN) 10 mg Oral tablet Take 1 Tab by mouth daily. 30 Tab 2 fluticasone (FLONASE) 50 mcg/spray Both Nostril SpSn Administer 2 Sprays in each nostril daily. 1 Bottle 5 DISCONTD: ibuprofen (MOTRIN) 800 mg Oral tablet Take 1 Tab by mouth 3 times daily with meals. 100 Tab 1 furosemide (LASIX) 40 mg Oral tablet Take 40 mg by mouth 2 times daily. albuterol-ipratropium (COMBIVENT) 103-18 mcg/Actuation Inhalation Aero Take 2 Puffs by inhalation every 6 hours as needed. insulin glargine (LANTUS) 100 unit/mL subCUT pen Inject by subcutaneous inj ection 2 times daily. 20 units in AM & 40 units in PM metoprolol succinate ER 24 hour (TOPROL XL) 100 mg Oral tablet Take 100 mg b y mouth daily. hydrOXYzine HCl (ATARAX) 25 mg Oral tablet Take 25 mg by mouth 4 times daily . risperidone (RISPERDAL) 0.25 mg Oral Tab Take 0.25 mg by mouth 4 times daily . ziprasidone (GEODON) 80 mg Oral Cap Take 80 mg by mouth 2 times daily with connor culp. acetaminophen (TYLENOL) 500 mg Oral tablet Take 1-2 Tabs by mouth every 6 ho urs as needed. 100 Tab 3 warfarin (COUMADIN) 5 mg Oral tablet Take [...] every 6 hours. 1 Inhaler 5 Insulin [place], Disposable, (BD INSULIN PEN NEEDLE UF SHORT) 31 X 5/16 " Mi sc Ndle by [facility].(Non-Drug; Combo Route) route. 1 Package 11 citalopram (CELEXA) 20 mg Oral tablet Take 20 mg by mouth daily ashleigh fierro OXcarbazepine (TRILEPTAL) 150 mg Oral tablet Take [...] (by systems): Arthritis symptoms: diffuse arthralgias and c/o recurrent diffuse pains. has ea shaneier reduced pain meds but now recurrent. no new injury or clearly exacerbatin g cause. limits ADLs. Diabetes Type II complaints: says sugars are stable without acute sxs and gonzalez s not seem related to recent pain increased. Review of Systems: ROS Has most of all of the following: Headache Dizziness Chest pain Shortness of breath Bowel changes Bladder changes Pain in muscle or joints Exam/Objective: Normal Exam for Routine Visits: \\Blood pressure 112/66, height 5' 4" (1.626 m), weight 270 lb (122.471 kg). General appearance: chronic appearing, active, alert, cooperative, social, sadi lly nourished, and in no acute distress Lungs: breath sounds equal, clear to auscultation bilaterally, no retractions, n o stridor, normal respiratory effort Heart: regular rate and rhythm, S1, S2 normal, no murmur, click, rub, gallop, or abnormal sounds. Abdomen: soft, non-tender. Bowel sounds normal. No masses, no organomegaly. Ac tive bowel sounds. Extremities: symmetrical Edematous. Tender in many areas Assessment and Plan: ASSESSMENT: Encounter Diagnoses Name Primary? Chronic pain Yes Pain, lip Chest wall pain Unspecified hereditary and idiopathic peripheral neuropathy DM w/o complication type II PLAN: Orders Placed This Encounter Bmp (3 months x 1) Hemoglobin a1c (3 months x 1) Tramadol (ultram) 50 mg oral tablet Ibuprofen (motrin) 800 mg oral tablet Appropriate medications prescribed (see detailed AVS). Appropriate patient instructions provided (see detailed AVS). Follow-up as I have indicated. Medications and options explained to include common side effects. Understanding of medications, course, diagnosis, and expectations were expressed by patient/g uardian. documented in this encounter Plan of Treatment Not on filedocumented as of this encounter Results * HEMOGLOBIN A1C (02/21/2011 2:17 PM CDT) HEMOGLOBIN A1C 5.2 0 - 6.0 % [facility] GLUCOSE, MEAN 103Comment: [facility] STR[facility] mg/dl [facility] BLOOD ACCT#[id number], ,,,, [facility]ENTER [facility] Specimen Blood specimen (specimen) Performing Organization Address City/State/Zipcode Ph one Number [facility] CLIA# [id number] [place] [address] - [place] [address] [place] [address] CLIA# [id number] Milly RIOJAS [address] * BASIC METABOLIC PANEL (02/21/2011 2:17 PM CDT) GLUCOSE 105 (H) 70 - 100 mg/dl [facility] BUN 11.0 7 - 20 mg/dl [facility] CREATININE 1.03 (H) 0.6 - 1.0 mg/dl [facility] BUN/CREAT RATIO 10.7 10 - 20 [facility] GFR 64 >60 ml/min [facility] SODIUM 134 (L) 135 - 145 mmol/L [facility] POTASSIUM 3.6 3.3 - 4.8 mmol/L [facility] CHLORIDE 103 98 - 107 mmol/L [facility] CO2 25.2 22 - 31 mmol/L [facility] ANION GAP 9 4 - 20 [facility] CALCIUM 8.6Comment: [facility] SHAWJaredCLEMENTE BOSS 8.5 - 10.1 mg/dl [facility] ACCT#[id number], ,,,, [facility] Specimen Blood specimen (specimen) Performing Organization Address City/State/Zipcode Ph one Number [facility] CLIA# [id number] CLEMENTE RIOJ[place] [address] - [place] [address] [place] [address] CLIA# [id number] Milly RIOJAS [id number] documented in this encounter Visit Diagnoses Diagnosis Chronic pain - Primary Other chronic pain Pain, lip Diseases of lips Chest wall pain Painful respiration Unspecified hereditary and idiopathic p eripheral neuropathy Type II or unspecified type diabetes me llitus without mention of complication, not stated as uncontrolled documented in this encounter
--- OUTSIDE RECORDS SUMMARY | 2019-10-21 18:25 | XMS REPORT | Encounter Summary ---
Author Author [facility] Organization [facility] Address Unknown Phone Unavailable Care Team Providers Care School Services Officer Name Role Phone Robby Rajan Мария KILLIAN Unavailable Phong Stephens MD PCP Unavailable Encounter Details Care Team Description Date Type Department Phong Stephens MD NO ADDRESS ON FILE 12/23/2010 Anti-coag visit [facility] [address] [address] Social History Date Tobacco Use [...]
--- OUTSIDE RECORDS SUMMARY | 2019-10-21 18:25 | XMS REPORT | Encounter Summary ---
Author Author [facility] Organization [facility] Address Unknown Phone Unavailable Care Team Providers Care Spout Tender Name Role Phone Robby Rajan QUALITY CONTROL DIRECTOR Unavailable Phong Stephens MD PCP Unavailable Reason for Visit * Reason Comments Head Lice Encounter Details Care Team Description Date Type Department Jessica Christian Head Lice 10/20/2010 Telephone [facility] [address] [address] Social History Date Tobacco Use [...] * Telephone Encounter - Jessica Christian - 10/20/2010 3:[address] Stephens may treat with Adrian rosario documented in this encounter Plan of Treatment Not on filedocumented as of this encounter Visit Diagnoses Not on filedocumented in this encounter
--- OUTSIDE RECORDS SUMMARY | 2019-10-21 18:25 | XMS REPORT | Encounter Summary ---
Author Author [facility] Organization [facility] Address Unknown Phone Unavailable Care Team Providers Care Advanced Developer Name Role Phone Robby Rajan Мария KILLIAN Unavailable Phong Stephens MD PCP Unavailable Encounter Details Care Team Description Date Type Department Phong Stephens MD NO ADDRESS ON FILE 12/23/[address] [facility] [address] [address] Social History Date Tobacco Use [...]
--- OUTSIDE RECORDS SUMMARY | 2019-10-21 18:25 | XMS REPORT | Encounter Summary ---
Author Author [facility] Organization [facility] Address Unknown Phone Unavailable Care Team Providers Care Compensation Specialist Name Role Phone Robby Rajan Мария KILLIAN Unavailable Phong Stephens MD PCP Unavailable Reason for Visit * Reason Comments Medication Refill Encounter Details Care Team Description Date Type Department Phong Stephens MD NO ADDRESS ON FILE Acute URI (Primary Dx) 12/07/2010 [facility] [address] [address] Social History Date Tobacco [...]
--- OUTSIDE RECORDS SUMMARY | 2019-10-21 18:25 | XMS REPORT | Encounter Summary ---
Author Author [facility] Organization [facility] Address Unknown Phone Unavailable Care Team Providers Care Hot Top Liner Helper Name Role Phone Franco Rajanory Мария KILLIAN Unavailable Phong Stephens MD PCP Unavailable Reason for Visit * Reason Comments Depression Encounter Details Care Team Description Date Type Department 11/23/2010 Emergency [facility] [address] [phone] Social History Date Tobacco Use [...] Oral tablet by mouth 4 times daily. 11/11/2010 12/09/2010 traMADol (ULTRAM) 50 mg Take 1 Tab by 30 Tab 0 Oral tabletIndications: mouth every 6 Pain, lip hours as needed for Pain. 11/11/2010 02/08/2011 ibuprofen (MOTRIN) 800 mg Take 1 Tab by 100 Tab 1 Oral tabletIndications: mouth 3 times Chest wall pain daily with meals. 12/01/2010 hydrOXYzine pamoate Take 25 mg by 0 (VISTARIL) 25 mg Oral mouth 3 times capsule daily as needed. 09/08/2010 12/07/2010 loratadine (CLARITIN) 10 Take 1 Tab by 30 Tab 2 mg Oral mouth daily. tabletIndications: Acute URI 09/08/2010 03/16/2011 fluticasone (FLONASE) 50 Administer 2 [...] in AM & 40 units in PM 07/22/2010 12/01/2010 acetaminophen (TYLENOL) Take 1-2 Tabs 100 Tab 3 500 mg Oral by mouth tabletIndications: Head every 6 hours ache as needed. 06/13/2010 01/20/2011 warfarin (COUMADIN) 5 mg Take 1 Tab by 30 Tab 0 Oral tablet mouth daily. 06/13/2010 06/15/2011 potassium chloride SR Take 1 Tab by 60 Tab 11 (K-DUR) 10 mEq Oral mouth 2 times tablet daily. 06/13/2010 04/26/2011 gabapentin (NEURONTIN) Take 1 Tab by 120 Tab 11 600 mg Oral mouth 3 times tabletIndications: daily. Fibromyalgia 05/04/2010 05/18/2011 Insulin [place], by 1 Package 11 Disposable, (BD INSULIN Misc.(Non-[place]iko PEN NEEDLE UF SHORT) 31 X g; Combo /16 " Misc Route) route. NdleIndications: Type II or unspecified type diabetes mellitus without mention of complication, not stated as uncontrolled 04/15/2010 12/09/2010 citalopram (CELEXA) 20 mg Take 20 mg by 0 Oral tablet mouth daily [employer]. documented as of this encounter ED Notes * Ari Stanley Physician - 11/23/2010 9:52 AM CDT * Halie Leung, RN - 11/23/2010 2:03 AM CDT Pt caregiver brought pt in stating 2 days ago she stated she would "take all her pills and end it" to another caregiver. Pt states she does not want to wait for [facility] screener and does not want to be in the hospital. Pt states she is not suicidal at this point. Pt instructed we would perform basic lab wo rk and have screener see pt. Pt states she is going home and promised she would not harm self to this data analyst report writer and caregiver. Pt signed out ama. documented in this encounter Plan of Treatment Not on filedocumented as of this encounter Visit Diagnoses Not on filedocumented in this encounter
--- OUTSIDE RECORDS SUMMARY | 2019-10-21 18:25 | XMS REPORT | Encounter Summary ---
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 [facility] ALYSA BRITTON LAB BENZODIAZEPINE Positive [facility], [facility] ALYSA BRITTON LAB COCAINE METAB Negative [facility] URINE CENTER ALYSA BRITTON LAB CANNABINOIDS Negative [facility] URINE CENTER ALYSA BRITTON LAB METHADONE QUAL, Negative [facility] ALYSA BRITTON LAB OPIATE QUAL, Negative [facility] URINE [place] ALYSA BRITTON LAB PCP QUAL, URINE Negative [facility] Comment: [facility] Chain of Custody Handling was TERRY LAB not performed on this specimen. This screen will not meet medical-legal requirements. CUTOFF LIMITS Amphetamines 1000 ng/ml Barbiturates 200 ng/ml Benzodiazepines 200 ng/ml Cocaine metabolite 300 ng/ml Marijuana metabolites 50 ng/ml Methadone 300 ng/ml Opiates 2000 ng/ml PCP 25 ng/ml [facility] ACCT#[id number], ,,,, Specimen Urine specimen (specimen) Performing Organization Address [facility] one [facility] LABORATORY SERVICES CLIA# [id number] CLEMENTE RIOJAS [address] CLIA# [id number] Milly RIOJAS [address] * PROTIME-INR (12/01/2010 1:30 AM CDT) PROTIME 11.4 (H) 9.8 - 11.1 Sec [facility] ALYSA BRITTON LAB INR 1.11 (L)Comment: 2.0 - 3.0 [facility] ACCT#[id number], ,,,, TERRY LAB Specimen Blood specimen (specimen) Performing Organization Address [facility] one [facility] LABORATORY SERVICES CLIA# [id number] CLEMENTE RIOJAS 667 - [facility] TERRY [address] [place] [address] CLIA# [id number] Milly RIOJAS [address] * SALICYLATE LEVEL (12/01/2010 1:30 AM CDT) SALICYLATE 6.9Comment: [facility] 2.8 - 20 mg/dl [facility] ACCT#[id number], ,,,, [place] ALYSA BRITTON LAB Specimen Blood specimen (specimen) Performing Organization Address [facility] one [facility] LABORATORY SERVICES CLIA# [id number] CLEMENTE RIOJAS [address] [place] CLIA# [id number] ALYSA Milly BRITTON [address] TERRY LAB [address] [place] [address] * ACETAMINOPHEN LEVEL (12/01/2010 1:30 AM CDT) ACETAMINOPHEN 0.0 (L)Comment: 10 - 30 ug/ml [facility] ACCT#[id number], ,,,, TERRY LAB Specimen Blood specimen (specimen) Performing Organization Address City/[facility] Ph one [facility] LABORATORY SERVICES CLIA# [id number] CLEMENTE RIOJAS 667 - ALYSA BRITTON [address] [place] [address] CLIA# [id number] Milly RIOJAS [address] TERRY LAB [address] [place] [address] * ETHANOL LEVEL (12/01/2010 1:30 AM CDT) [facility] ETHANOL LESS THAN 10 <10 mg/dl [facility] Comment: [facility] Chain of Custody Handling was TERRY LAB not performed on this specimen. This test will not meet medical-legal requirements. [facility] [place] ACCT#[id number], ,,,, Specimen Blood specimen (specimen) Performing Organization Address City/[facility] Ph one [facility] LABORATORY SERVICES CLIA# [id number] CLEMENTE RIOJAS 667 01 - [facility] TERRY [address] [place] [address] [place] CLIA# [id number] ALYSA Milly BRITTON S [address] TERRY LAB [address] [place] [address] * CBC WITH DIFFERENTIAL (12/01/2010 1:30 AM CDT) [facility] Signature WBC 9.76 3.0 - 10.4 x10E3 [facility] ALYSA BRITTON LAB RBC 4.60 3.77 - 4.97 x10E6 [facility] ALYSA BRITTON LAB HEMOGLOBIN 14.3 11.9 - 15.0 g/dL [facility] ALYSA BRITTON LAB HEMATOCRIT 43.3 34.4 - 43.6 % [facility] ALYSA BRITTON LAB MCV 94.2 79 - 100 fL [facility] ALYSA BRITTON LAB MCH 31.1 28 - 34 pg [facility] ALYSA BRITTON LAB MCHC 33.0 32 - 35 g/dL [facility] ALYSA BRITTON LAB RDW 12.9 11.5 - 15.1 % [facility] ALYSA BRITTON LAB PLATELETS 199 148 - 408 x10E3 [facility] ALYSA BRITTON LAB MPV 8.5 7.4 - 10.6 fL [facility] ALYSA BRITTON LAB NEUTROPHILS 60.5 43 - 73 % [facility] ALYSA BRITTON LAB LYMPHOCYTES 32.7 19 - 47 % [facility] ALYSA BRITTON LAB MONOCYTES 4.2 3 - 9 % [facility] ALYSA BRITTON LAB EOSINOPHILS 1.6 0 - 6 % [facility] ALYSA BRITTON LAB BASOPHILS 1.0 0 - 1.2 % [facility] ALYSA BRITTON LAB NEUTROPHIL 5.90 1.3 - 7.6 x10E3 [facility] ALYSA BRITTON LAB LYMPHOCYTE 3.19 0.6 - 4.9 x10E3 [facility] ALYSA BRITTON LAB MONOCYTE 0.41 0.1 - 0.9 x10E3 [facility] ALYSA BRITTON LAB EOSINOPHIL 0.16 0.0 - 0.2 x10E3 [facility] ALYSA BRITTON LAB BASOPHILS 0.10Comment: [facility] BOSS 0 - 0.1 x10E3 [facility] ACCT#[id number], ,,,, CENTER ALYSA BRITTON LAB Specimen Blood specimen (specimen) Performing Organization Address City/State/[employer] Ph one Number [facility] LABORATORY SERVICES CLIA# [id number] CLEMENTE RIOJAS 667 01 - ALYSA BRITTON 401 [facility] CLIA# [id number] Milly RIOJAS S [address] * COMPREHENSIVE METABOLIC PANEL (12/01/2010 1:30 AM CDT) GLUCOSE 96 70 - 100 mg/dl [facility] ALYSA BRITTON LAB BUN 17.0 7 - 20 mg/dl [facility] ALYSA TERRY LAB CREATININE 1.04 (H) 0.6 - 1.0 mg/dl [facility] ALYSA TERRY LAB BUN/CREAT RATIO 16.3 10 - 20 [facility] ALYSA TERRY LAB GFR 63 >60 ml/min [facility] ALYSA BRITTON LAB SODIUM 135 135 - 145 mmol/L [facility] ALYSA BRITTON LAB POTASSIUM 3.7 3.3 - 4.8 mmol/L [facility] TERRY LAB CHLORIDE 103 98 - 107 mmol/L [facility] TERRY LAB CO2 25.0 22 - 31 mmol/L [facility] LAB ANION GAP 11 4 - 20 [facility] ALYSA BRITTON LAB CALCIUM 8.8 8.5 - 10.1 mg/dl [facility] LAB ALBUMIN 3.6 3.4 - 5.0 g/dl [facility] LAB TOTAL PROTEIN 7.1 6.4 - 8.2 g/dl [facility] LAB GLOBULIN (CALC) 3.5 [facility] LAB ALBUMIN/GLOBULI 1.0 [facility] N RATIO [facility] LAB BILIRUBIN TOTAL 0.2 <1.1 mg/dl [facility] LAB ALKALINE 123 50 - 136 IU/L [facility] PHOSPHATASE [facility] LAB AST 14 10 - 40 IU/L [facility] LAB ALT 37Comment: [facility] BOSS 25 - 70 IU/L [facility] ACCT#[id number], ,,,, CENTER ALYSA TERRY LAB Specimen Blood specimen (specimen) Performing Organization Address City/State/[facility] Ph one Number [facility] LABORATORY SERVICES CLIA# [id number] ALYSA BRITTON [place] [address] - ALYSA BRITTON [address] [place] [address] CLIA# [id number] ALYSA BRITTON S [address] documented in this encounter Visit Diagnoses Diagnosis Overdose Poisoning by unspecified drug or medici nal substance Suicidal ideation Overdose of benzodiazepine Poisoning by benzodiazepine-based tranq uilizers documented in this encounter Administered Medications Action Date Dose Rate Site Medication Order MAR Action 12/01/2010 11:16 AM CDT 100 mL/hr sodium chloride 0.9 % infusion Bag Switched IV, at 100 mL/hr, CONTINUOUS, Starting Yeni 12/01/10 at 0200, Until Yeni 12/01/10 at 1802, Routine 100 mL/hr Rate Verify 12/01/2010 5:18 AM CDT 100 mL/hr 100 mL/hr Hand, Left New Bag 12/01/2010 2:03 AM CDT documented in this encounter
--- OUTSIDE RECORDS SUMMARY | 2019-10-21 18:25 | XMS REPORT | Encounter Summary ---
Author Author [facility] Organization [facility] Address Unknown Phone Unavailable Care Team Providers Care Disability Attorney Name Role Phone Robby Rajan CONSTANTIN Unavailable Phong Stephens MD PCP Unavailable Encounter Details Care Team Description Date Type Department Phong Stephens MD NO ADDRESS ON FILE [facility], Lab Schedule 12/23/2010 Hospital [facility] General Encounter Laboratory Services [address] [address] Social History Date Tobacco Use [...] Oral tablet by mouth 4 times daily. 12/09/2010 02/27/2011 traMADol (ULTRAM) 50 mg Take [...] times tabletIndications: daily. Fibromyalgia 05/04/2010 05/18/2011 Insulin [place], by 1 Package 11 Disposable, (BD INSULIN Misc.(Non-Miko PEN NEEDLE UF SHORT) 31 X g; Combo 5/16 " Misc Route) route. NdleIndications: Type II or unspecified type diabetes mellitus without mention of complication, not stated as uncontrolled documented as of this encounter Procedure Notes * Maverickk Scanning, Ari Physician - 12/28/2010 1:04 PM CDT Associated Order(s): OXCARBAZEPINE LEVEL; OXCARBAZEPINE LEVEL documented in this encounter Miscellaneous Notes * Scanned Form - Maverickk Scanning, Ari Physician - 12/27/2010 7:54 AM CDT documented in this encounter Plan of Treatment Not on filedocumented as of this encounter Procedures Comments Procedure Name Priority Date/Time Associated Diag nosis OXCARBAZEPINE LEVEL Routine 12/23/2010 Schizoaffe ctive disorder 10:24 AM CDT PROTIME-INR Routine 12/23/2010 Embolism and th rombosis 10:24 AM CDT of unspecified site documented in this encounter Results * PROTIME-INR (12/23/2010 10:24 AM CDT) PROTIME 14.0 (H) 9.8 - 11.1 Sec [facility] REBA LAB INR 1.38 (L)Comment: 2.0 - 3.0 [facility] OHIOCLEMENTE BOSS [facility] ACCT#[id number], ,,,, REBA LAB Specimen Blood specimen (specimen) Performing Organization Address City/[facility] Ph one [facility] LABORATORY SERVICES CLIA# [id number] ALYSA BRITTON [place] [address] - ALYSA BRITTON [address] [place] [address] CLIA# [id number] ALYSA BRITTON S [address] REBA [address] [place] [address] * OXCARBAZEPINE LEVEL (12/23/2010 10:24 AM CDT) Specimen Blood specimen (specimen) Narrative Performed At This result has an attachment that is n ot available. Procedure Note 12/28/2010 1:04 PM CDT Performing Organization Address [facility] Ph one [facility] LABORATORY SERVICES CLIA# [id number] ALYSA BRITTON [place] [address] - [address] documented in this encounter Visit Diagnoses Diagnosis Schizoaffective disorder Schizoaffective disorder, unspecified c ondition Embolism and thrombosis of unspecified site documented in this encounter
--- OUTSIDE RECORDS SUMMARY | 2019-10-21 18:25 | XMS REPORT | Encounter Summary ---
Author Author [facility] Organization [facility] Address Unknown Phone Unavailable Care Team Providers Care Technician Chemical Cleaning Name Role Phone Robby Rajan CONSTANTIN Unavailable Phong Stephens MD PCP Unavailable Reason for Visit * Reason Comments ER [place] [id number] and [id number] Headache x 1 week Eye Problem blurred vision Encounter Details Care Team Description Date Type Department Phong Stephens MD NO ADDRESS ON FILE DM w/o complication type II; Embolism and thrombosis of unspecified site; Chronic pain; Sleep apnea; Vision abnormalities; Pain, lip; Headache 12/09/2010 Office Visit [address] [address] Social History Date Tobacco Use [...] Reading Time Taken Comments Vital Sign 108/74 12/09/2010 3:28 PM CDT Blood Pressure 68 12/09/2010 3:28 PM CDT Pulse - - Temperature - - Respiratory Rate - - Oxygen Saturation - - Inhaled Oxygen Concentration 129.3 kg (285 lb) 12/09/2010 3:28 PM CDT Weight 160 cm (5' 3") 12/09/2010 3:28 PM CDT Height 50.49 12/09/2010 3:28 PM CDT Body Mass Index documented in this encounter Progress Notes * Phong Stephens MD - 12/09/2010 4:15 PM CDT Subjective: Ayden Odom is a [...] prior to encounter Medication Sig Dispense Refill loratadine (CLARITIN) 10 mg Oral tablet Take 1 Tab by mouth daily. 30 Tab 3 tiotropium (SPIRIVA) 18 mcg Inhalation capsule Take 18 mcg by inhalation cathleen ly. ibuprofen (MOTRIN) 800 mg Oral tablet Take 1 Tab by mouth 3 times daily with meals. 100 Tab 1 DISCONTD: traMADol (ULTRAM) 50 mg Oral tablet Take 1 Tab by mouth every 6 ho urs as needed for Pain. 30 Tab 0 mupirocin (BACTROBAN) 2 % Topical Oint Apply to affected area 2 times daily . 1 Tube 0 fluticasone (FLONASE) 50 mcg/spray Both Nostril SpSn [...] every 6 hours. 1 Inhaler 5 Insulin [place], Disposable, (BD INSULIN PEN NEEDLE UF SHORT) 31 X 5/16 " Mi sc Ndle by Misc.(Non-Drug; Combo Route) route. 1 Package 11 OXcarbazepine (TRILEPTAL) 150 mg Oral tablet Take 300 mg by mouth 2 times da cornell. DISCONTD: citalopram (CELEXA) 20 mg Oral tablet Take 20 mg by mouth daily ea rly morning. topiramate (TOPAMAX) 100 mg Oral tablet Take [...] systems): Arthritis symptoms: diffuse arthralgias and chel hips, back Diabetes Type II complaints: patient is asymptomatic, is compliant with meds a nd diet; glucose monitoring is usually in normal ranges primary c/o to me today is 2-3 day hx of blurry and decreased vis acutiy. has p ost CROWELL and ?? sl correlation. no injury fever or other neuro deficits. varies i n intensity. Review of Systems: ROS Denies all of the following: Dizziness Chest pain Shortness of breath Bowel changes: no c/o swallowing difficulty during my visit, hx , exam Bladder changes Pain in muscle or joints Exam/Objective: Normal Exam for Routine Visits: \\Blood pressure 108/74, pulse 68, height 5' 3" ( 1.6 m), weight 285 lb (129.275 kg). General appearance:chronic and affect to exaggerate sxs appearing, active, alert , cooperative, social, normally nourished, and in no acute distress Lungs: breath sounds equal, clear to auscultation bilaterally, no retractions, n o stridor, normal respiratory effort Heart: regular rate and rhythm, S1, S2 normal, no murmur, click, rub, gallop, or abnormal sounds. Abdomen: soft, non-tender. Bowel sounds normal. No masses, no organomegaly. Ac tive bowel sounds. Extremities: symmetrical non edematous. HEENT:perrla, eomi, tender post scalp and assoc neck. No rigidity. 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 DM w/o complication type II Embolism and thrombosis of unspecified site Chronic pain Sleep apnea Vision abnormalities Pain, lip Headache PLAN: Orders Placed This Encounter Tramadol (ultram) 50 mg oral tablet Ketorolac (toradol) 30 mg/ml (1 ml) injection soln coumading 5mg to 2-1-1 rotate and champ 2 weeks See agricultural mechanic if sxs persist Appropriate medications prescribed (see detailed AVS). Appropriate patient instructions provided (see detailed AVS). Follow-up as I have indicated. Medications and options explained to include common side effects. Understanding of medications, course, diagnosis, and expectations were expressed by patient/g uardian. documented in this encounter Plan of Treatment Not on filedocumented as of this encounter Results * PROTIME-INR (12/23/2010 10:24 AM CDT) PROTIME 14.0 (H) 9.8 - 11.1 Sec [facility] ALYSA REBA LAB INR 1.38 (L)Comment: 2.0 - 3.0 [facility]#[id number], ,,,, REBA LAB Specimen Blood specimen (specimen) Performing Organization Address City/State/Zipcode Ph one Number [facility] LABORATORY SERVICES CLIA# [id number] ALYSA BRITTON [place] [address] - ALYSA BRITTON [address] [place] [address]# [id number] Milly RIOJAS [address] REBA [address]UA [address] [place] [address] documented in this encounter Visit Diagnoses Diagnosis Type II or unspecified type diabetes me llitus without mention of complication, not stated as uncontrolled Embolism and thrombosis of unspecified site Chronic pain Other chronic pain Sleep apnea Unspecified sleep apnea Vision abnormalities Unspecified visual loss Pain, lip Diseases of lips Headache(784.0) Headache documented in this encounter
--- OUTSIDE RECORDS SUMMARY | 2019-10-21 18:26 | XMS REPORT | Encounter Summary ---
Author Author [facility] Organization [facility] Address Unknown Phone Unavailable Care Team Providers Care Funeral Service Manager Name Role Phone Robby Rajan APRN Unavailable Phong Stephens MD PCP Unavailable Encounter Details Care Team Description Date Type Department 10/05/2010 Emergency [facility] Emergency Department [address] [phone] Social History Date Tobacco Use [...] Oral tablet by mouth 4 times daily. 09/08/2010 12/07/2010 loratadine (CLARITIN) 10 Take 1 Tab by 30 Tab 2 mg Oral mouth daily. tabletIndications: Acute URI 09/08/2010 03/16/2011 fluticasone (FLONASE) 50 Administer 2 1 Bottle 5 mcg/spray Both Nostril Sprays in SpSnIndications: Acute each nostril URI daily. 08/22/2010 11/11/2010 ibuprofen (MOTRIN) 800 mg Take 1 Tab by 100 Tab 1 Oral tabletIndications: mouth 3 times Chest wall pain daily with meals. 06/13/2010 06/15/2011 furosemide (LASIX) 40 mg Take [...] times tabletIndications: daily. Fibromyalgia 05/04/2010 05/18/2011 Insulin [place], by 1 Package 11 Disposable, (BD INSULIN Misc.(Non-Miko PEN NEEDLE UF SHORT) 31 X g; Combo 5/16 " Misc Route) route. NdleIndications: Type II or unspecified type diabetes mellitus without mention of complication, not stated as uncontrolled 04/15/2010 12/09/2010 citalopram (CELEXA) 20 mg Take 20 mg by 0 Oral tablet mouth daily door opener. documented as of this encounter ED Notes * Lakeisha Abdi RN - 10/05/2010 3:35 PM CDT Pt went to urgent care after checking in to ER. No care provided in the ER. * Lakeisha Abdi RN - 10/05/2010 3:10 PM CDT Pt asking how much longer it is going to be before she is brought back. Made aw are that there are other pt's in the ER at this time and that we were currently waiting on an ambulance to arrive. Pt made aware that her wait time will be up to 30-45 minutes. Was also made aware that urgent care opens at 3:30 p.m. And t hat if she did not want to wait to be seen in the ER, that she could go there fo r treatment. documented in this encounter Plan of Treatment Not on filedocumented as of this encounter Visit Diagnoses Not on filedocumented in this encounter
--- OUTSIDE RECORDS SUMMARY | 2019-10-21 18:26 | XMS REPORT | Encounter Summary ---
Author Author [facility] Organization [facility] Address Unknown Phone Unavailable Care Team Providers Care Rn Admission Name Role Phone Robby Rajan CONSTANTIN Unavailable Phong Stephens MD PCP Unavailable Reason for Visit * Reason Comments Neck Pain Irregular Heart Beat rapid heart rate with minim al exertion Encounter Details Care Team Description Date Type Department Phong Stephens MD NO ADDRESS ON FILE Chest wall pain; DM w/o complication type II; Neck pain 08/22/2010 Office Visit [facility] Primar y Care [address] [address] Social History Date Tobacco Use [...] Reading Time Taken Comments Vital Sign 120/80 08/22/2010 5:15 PM CDT Blood Pressure 84 08/22/2010 5:15 PM CDT Pulse - - Temperature - - Respiratory Rate 96% 08/22/2010 5:15 PM CDT Oxygen Saturation - - Inhaled Oxygen Concentration - - Weight - - Height - - Body Mass Index documented in this encounter Progress Notes * Phong Stephens MD - 08/22/2010 5:38 PM CDT Subjective: Ayden Odom is a [...] 780.97G Vomiting 787.03B Cough 786.2 Sinusitis 473.9G Current outpatient prescriptions ordered prior to encounter Medication Sig Dispense Refill furosemide (LASIX) 40 mg Oral tablet Take [...] mg by mouth 4 times daily . ESZOPICLONE (LUNESTA ORAL) Take by mouth daily at bedtime. ziprasidone (GEODON) 80 mg Oral Cap Take [...] every 6 hours. 1 Inhaler 5 Insulin [place], Disposable, (BD INSULIN PEN NEEDLE UF SHORT) 31 X 5/16 " Mi sc Ndle by Misc.(Non-Drug; Combo Route) route. 1 Package 11 benzonatate (TESSALON) 100 mg Oral capsule Take 2 Caps by mouth 3 times celestino y as needed for Cough. 30 Cap 2 citalopram (CELEXA) 20 mg Oral tablet Take 20 mg by mouth daily early mornin g. OXcarbazepine (TRILEPTAL) 150 mg Oral tablet Take 300 mg by mouth 2 times da cornell. topiramate (TOPAMAX) 100 mg Oral tablet Take 1 Tab by mouth 2 times daily. 60 Tab 5 fluticasone-salmeterol (ADVAIR DISKUS) 500-50 mcg/Dose Inhalation DsDv Take 1 Puff by inhalation 2 times daily. 1 Device 5 Oxygen-Air Delivery Systems Misc Leisa Take 2 L/min by inhalation daily at be dtime. ACCU-CHEK ACTIVE CARE Misc Kit by See Admin Instructions route. Before meals , at bedtime, and as needed HPI: Ms. Odom complains of the following (by systems): Arthritis symptoms: diffuse arthralgias and recent increased pain low post neck radicular to base of skull. Chest Pain symptoms: none, palpitations and is having occ sl rapid heart but may be med related. Reviewed sugars and diabetes control Review of Systems: ROS Denies all of the following: Headache Dizziness Chest pain: is having non-cardiac chest wall pain and tendernes Shortness of breath Bowel changes Bladder changes Pain in muscle or joints Exam/Objective: Normal Exam for Routine Visits: \\Blood pressure 120/80, pulse 84, SpO2 96.00%. General appearance: chronic ill appearing, active, alert, cooperative, social, n ormally nourished, and in no acute distress Lungs: breath sounds equal, clear to auscultation bilaterally, no retractions, n o stridor, normal respiratory effort Heart: regular rate and rhythm, S1, S2 normal, no murmur, click, rub, gallop, or abnormal sounds. Abdomen: soft, non-tender. Bowel sounds normal. No masses, no organomegaly. Ac tive bowel sounds. Extremities: symmetrical non edematous. Neck mild tender Assessment and Plan: ASSESSMENT: Encounter Diagnoses Name Primary? Chest wall pain DM w/o complication type II Neck pain PLAN: Orders Placed This Encounter Methylprednisolone acetate 80 mg/ml injection Ibuprofen (motrin) 800 mg oral tablet Methylprednisolone acetate (depo-medrol) 80 mg/ml injection susp lantus to 40hs and 35 am Stretch neck ms No c-v changes. Appropriate medications prescribed (see detailed AVS). Appropriate patient instructions provided (see detailed AVS). Follow-up as I have indicated. Medications and options explained to include common side effects. Understanding of medications, course, diagnosis, and expectations were expressed by patient/g uardian. documented in this encounter Plan of Treatment Not on filedocumented as of this encounter Visit Diagnoses Diagnosis Chest wall pain Painful respiration Type II or unspecified type diabetes me llitus without mention of complication, not stated as uncontrolled Neck pain Cervicalgia documented in this encounter
--- OUTSIDE RECORDS SUMMARY | 2019-10-21 18:26 | XMS REPORT | Encounter Summary ---
Author Author [facility] Organization [facility] Address Unknown Phone Unavailable Care Team Providers Care Compensator Name Role Phone Robby Rajan APRN Unavailable Phong Stephens MD PCP Unavailable Reason for Visit * Reason Comments Post-op With No Problems po hemorrhoidectomy Encounter Details Care Team Description Date Type Department Turner Cabral DO [address] [place] [address] Postoperative examination (Primary Dx) 08/16/2010 Office Visit [address] [phone] Social History Date Tobacco Use [...] - - Blood Pressure - - Pulse 37.4 C (99.3 F) 08/16/2010 2:03 PM CDT Temperature - - Respiratory Rate - - Oxygen Saturation - - Inhaled Oxygen Concentration - - Weight - - Height - - Body Mass Index documented in this encounter Progress Notes * Turner Cabral DO - 08/16/2010 2:45 PM CDT Ayden Feldmanon is here status post hemorrhoidectomy Pt is doing well and rep orts no problems. Pt in wheel chair. Anal exam not done Pt states no anal probl ems now that healling has occurred. No further follow up needed. documented in this encounter Plan of Treatment Not on filedocumented as of this encounter Visit Diagnoses Diagnosis Postoperative examination - Primary Follow-up examination, following unspec ified surgery documented in this encounter
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
--- OUTSIDE RECORDS SUMMARY | 2019-10-21 18:26 | XMS REPORT | Encounter Summary ---
Author Author [facility] Organization [facility] Address Unknown Phone Unavailable Care Team Providers Care Drug Safety Scientist Name Role Phone Robby Rajan CONSTANTIN Unavailable Phong Stephens MD PCP Unavailable Reason for Visit * Reason Comments Sinus Pain Sinus Problem Encounter Details Care Team Description Date Type Department Phong Stephens MD NO ADDRESS ON FILE Acute URI; DM w/o complication type II 09/08/2010 Office Visit [facility] [address] [address] Social History Date Tobacco Use [...] Reading Time Taken Comments Vital Sign 126/66 09/08/2010 11:33 AM CDT Blood Pressure 70 09/08/2010 11:33 AM CDT Pulse 36.1 C (96.9 F) 09/08/2010 11:33 AM CDT Temperature - - Respiratory Rate - - Oxygen Saturation - - Inhaled Oxygen Concentration 128.4 kg (283 lb) 09/08/2010 11:33 AM CDT Weight 160 cm (5' 3") 09/08/2010 11:33 AM CDT Height 50.13 09/08/2010 11:33 AM CDT Body Mass Index documented in this encounter Progress Notes * Phong Stephens MD - 09/08/2010 12:13 PM CDT Subjective: Ayden Odom is a [...] prior to encounter Medication Sig Dispense Refill DISCONTD: loratadine (CLARITIN) 10 mg Oral tablet Take 10 mg by mouth daily. ibuprofen (MOTRIN) 800 mg Oral tablet Take [...] every 6 hours. 1 Inhaler 5 Insulin [place], Disposable, (BD INSULIN PEN NEEDLE UF SHORT) [...] following (by systems): Diabetes Type II complaints: patient is asymptomatic, is compliant with meds a nd diet; glucose monitoring is usually in normal ranges Sinusitis associated symptoms: nasal congestion, clear rhinorrhea, cough, headac hes, facial pain and has seasonal variation Review of Systems: ROS Denies all of the following: Headache Dizziness Chest pain Shortness of breath Bowel changes Bladder changes Pain in muscle or joints Exam/Objective: Normal Exam for Routine Visits: \\Blood pressure 126/66, pulse 70, temperature 96 .9 F (36.1 C), height 5' 3" (1.6 m), weight 283 lb (128.368 kg). General appearance: , active, alert, cooperative, [...] Extremities: symmetrical non edematous. HEENT: congested and sl sinus tender. Assessment and Plan: ASSESSMENT: Encounter Diagnoses Name Primary? Acute URI DM w/o complication type II PLAN: Orders Placed This Encounter Loratadine (claritin) 10 mg oral tablet Fluticasone (flonase) 50 mcg/spray both nostril spsn Prednisone (deltasone) 10 mg oral tablet Appropriate medications prescribed (see detailed AVS). Appropriate patient instructions provided (see detailed AVS). Follow-up as I have indicated. Medications and options explained to include common side effects. Understanding of medications, course, diagnosis, and expectations were expressed by patient/g uardian. documented in this encounter Plan of Treatment Not on filedocumented as of this encounter Visit Diagnoses Diagnosis Acute URI Acute upper respiratory infections of u nspecified site Type II or unspecified type diabetes me llitus without mention of complication, not stated as uncontrolled documented in this encounter
--- OUTSIDE RECORDS SUMMARY | 2019-10-21 18:26 | XMS REPORT | Encounter Summary ---
Author Author [facility] Organization [facility] Address Unknown Phone Unavailable Care Team Providers Care Rest Room Attendant Name Role Phone SatinderRobby Мария EQUIPMENT HIRE MANAGER Unavailable Phong Stephens MD PCP Unavailable Reason for Visit * Reason Comments Wound Infection patient had her lower lip p ierced 2 days ago unprofessionally and now has a possible infection. Encounter Details Care Team Description Date Type Department Erickson, CONSTANTIN Astudillo NO ADDRESS ON FILE Infected pierced lip (Primary Dx); Pain, lip 10/05/[address] [facility] [address] [address] Social History Date Tobacco Use [...] Signs Reading Time Taken Comments Vital Sign 102/52 10/05/2010 3:49 PM CDT Blood Pressure 95 10/05/2010 3:49 PM CDT Pulse 37.6 C (99.7 F) 10/05/2010 3:49 PM CDT Temperature - - Respiratory Rate 96% 10/05/2010 3:49 PM CDT Oxygen Saturation - - Inhaled Oxygen Concentration 122.5 kg (270 lb) 10/05/2010 3:49 PM CDT Weight 161.3 cm (5' 3.5") 10/05/2010 3:49 PM CDT Height 47.08 10/05/2010 3:49 PM CDT Body Mass Index documented in this encounter Progress Notes * Wilda Erickson NP - 10/05/2010 4:03 PM CDT HISTORY OF PRESENT ILLNESS Ayden Odom, a 40 y.o. female. HPI Had bottom lip pierced two days ago. Yesterday the area really started hurting. Swelling and drainage on the front and back sides of the piercing. The piercing was done at a home. REVIEW OF SYSTEMS Review of Systems Constitutional: Positive for fever. Skin: Infected piercing PHYSICAL EXAM BP 102/52 | Pulse 95 | Temp(Src) 99.7 F (37.6 C) (Tympanic) | Ht 5' 3.5" (1. 613 m) | Wt 270 lb (122.471 kg) | BMI 47.08 kg/m2 | SpO2 96% Physical Exam Constitutional: She appears well-developed and well-nourished. No distress. HENT: Mouth/Throat: Skin: She is not diaphoretic. ASSESSMENT and PLAN: Encounter Diagnoses 1. Infected pierced lip (958.3L) clindamycin HCl (CLEOCIN) 300 mg Oral Cap, mup irocin (BACTROBAN) 2 % Topical Oint 2. Pain, lip (528.5BZ) traMADol (ULTRAM) 50 mg Oral tablet Piercing removed. Do not attempt home piercing's again. Apply bactrban BID. Bere charity orally x 10 days. Follow up if symptoms continue or worsen. documented in this encounter Plan of Treatment Not on filedocumented as of this encounter Visit Diagnoses Diagnosis Infected pierced lip - Primary Posttraumatic wound infection not elsew here classified Pain, lip Diseases of lips documented in this encounter
--- OUTSIDE RECORDS SUMMARY | 2019-10-21 18:26 | XMS REPORT | Encounter Summary ---
Author Author [facility] Organization [facility] Address Unknown Phone Unavailable Care Team Providers Care Receiving Clerk Name Role Phone King Robby Мария KILLIAN Unavailable Phong Stephens MD PCP Unavailable Reason for Visit * Reason Comments Suprapubic Pain needs suprapubic change - n ot changed since 08/29/10 Encounter Details Care Team Description Date Type Department Homar Christian MD [facility] [place] [address] Suprapubic Pain (needs suprapubic change - not changed since 08/29/10) 10/14/2010 Telephone [facility] [place] [address] [place] [id number] Social History Date Tobacco Use Types [...] encounter Miscellaneous Notes * Telephone Encounter - Izzy Stewart - 10/14/2010 2:[address] Christian and Doctor gave verbal ok for patient to be seen on Sunday , 10/13/10 @ 0930am for sp change. Patient notified of appt date time and locati on and to be compliant and bring supplies for catheter change. Patient verbalize d understanding./sscottrn documented in this encounter Plan of Treatment Not on filedocumented as of this encounter Visit Diagnoses Not on filedocumented in this encounter
--- OUTSIDE RECORDS SUMMARY | 2019-10-21 18:26 | XMS REPORT | Encounter Summary ---
Author Author [facility] Organization [facility] Address Unknown Phone Unavailable Care Team Providers Care Cylinder Inspector Name Role Phone King Robby Мария KILLIAN Unavailable Phong Stephens MD PCP Unavailable Reason for Visit * Reason Comments Sinus Problem Encounter Details Care Team Description Date Type Department Brittany Apple Sinus Problem 09/07/2010 Telephone [facility] [address] [address] Social History Date Tobacco [...] * Telephone Encounter - Brittany Apple - 09/07/2010 10:24 AM CDT C/o sinus sx. Pt informed of dr. Stephens recommendation for claritin 10 mg one d aily. documented in this encounter Plan of Treatment Not on filedocumented as of this encounter Visit Diagnoses Not on filedocumented in this encounter
--- OUTSIDE RECORDS SUMMARY | 2019-10-21 18:26 | XMS REPORT | Encounter Summary ---
Author Author [facility] Organization [facility] Address Unknown Phone Unavailable Care Team Providers Care Finance Manager Name Role Phone King Robby Мария KILLIAN Unavailable Phong Stephens MD PCP Unavailable Reason for Visit * Reason Comments Lip Swelling Encounter Details Care Team Description Date Type Department Brittany Apple Lip Swelling 10/05/2010 Telephone [facility] [address] [address] Social History Date Tobacco [...] * Telephone Encounter - Brittany Apple - 10/05/2010 12:25 PM CDT Pt states she had her lip pierced Sunday and believes she has developed an infec tion at the sight. Pt instructed to remove the piercing and apply triple antibio tic cream to the outside of her lip. Pt states she needs an antibiotic or mouthw linh for the infection on the inside of her lip. Pt informed that the area need t o be evaluated. Pt sates she will present to urgent care this pm. documented in this encounter Plan of Treatment Not on filedocumented as of this encounter Visit Diagnoses Not on filedocumented in this encounter
--- OUTSIDE RECORDS SUMMARY | 2019-10-21 18:26 | XMS REPORT | Encounter Summary ---
Author Author [facility] Organization [facility] Address Unknown Phone Unavailable Care Team Providers Care Blade Changer Name Role Phone Robby Rajan CONSTANTIN Unavailable Phong Stephens MD PCP Unavailable Reason for Visit * Reason Comments Headache started [id number] Encounter Details Care Team Description Date Type Department Phong Stephens MD NO ADDRESS ON FILE Headache (Primary Dx) 09/05/2010 Office Visit [facility] Care [address] [phone] Social History Date Tobacco Use [...] Signs Reading Time Taken Comments Vital Sign 118/74 09/05/2010 11:17 AM CDT Blood Pressure 64 09/05/2010 11:17 AM CDT Pulse - - Temperature 20 09/05/2010 11:17 AM CDT Respiratory Rate - - Oxygen Saturation - - Inhaled Oxygen Concentration - - Weight - - Height - - Body Mass Index documented in this encounter Progress Notes * Phong Stephens MD - 09/05/2010 9:16 PM CDT Subjective: Ayden Odom is a [...] prior to encounter Medication Sig Dispense Refill ibuprofen (MOTRIN) 800 [...] every 6 hours. 1 Inhaler 5 Insulin [place], Disposable, (BD INSULIN PEN NEEDLE UF SHORT) 31 X 5/16 " [facility] sc [facility] by [facility]Non-Drug; Combo Route) route. 1 Package 11 benzonatate [...] Odom complains of the following (by systems): few days R frontal [facility] assoc witah nausea, and sl vision changes. claims hx of m igrains. no acute c-v or resp or other lat neuro c/o. Review of Systems: ROS Denies all of the following: Dizziness Chest pain Shortness of breath Bowel changes Bladder changes Pain in muscle or joints: chronic Exam/Objective: Normal Exam for Routine Visits: \\Blood pressure 118/74, pulse 64, resp. rate 20. General appearance: chronic ill appearing, active, alert, cooperative, social, n ormally nourished, and in mild acute distress Lungs: breath sounds equal, clear to auscultation bilaterally, no retractions, n o stridor, normal respiratory effort Heart: regular rate and rhythm, S1, S2 normal, no murmur, click, rub, gallop, or abnormal sounds. Abdomen: soft, non-tender. Bowel sounds normal. No masses, no organomegaly. Ac tive bowel sounds. Extremities: symmetrical non edematous. Assessment and Plan: ASSESSMENT: Encounter Diagnosis Name Primary? Headache Yes PLAN: Orders Placed This Encounter Ketorolac 30 mg/ml injection Promethazine 25 mg/ml injection Ketorolac (toradol) 30 mg/ml (1 ml) injection soln Promethazine (phenergan) 25 mg/ml injection soln [...]
--- OUTSIDE RECORDS SUMMARY | 2019-10-21 18:26 | XMS REPORT | Encounter Summary ---
Author Author [facility] Organization [facility] Address Unknown Phone Unavailable Care Team Providers Care Billing Assistant Name Role Phone Satinder Robby Мария SPINNING DOFFER Unavailable Phong Stephens MD PCP Unavailable Reason for Visit * Reason Comments Headache was seen today by Dr. Alfaro ls today diven phenergan/toradol Encounter Details Care Team Description Date Type Department Batsheva Morales, SPINNING DOFFER [address] [address] Migraine (Primary Dx) 09/05/2010 Office Visit [facility] [address] [place] [address] Social History Date Tobacco Use [...] Comments Vital Sign - - Blood Pressure 76 09/05/2010 8:16 PM CDT Pulse 37.1 C (98.7 F) 09/05/2010 8:16 PM CDT Temperature - - Respiratory Rate 98% 09/05/2010 8:16 PM CDT Oxygen Saturation - - Inhaled Oxygen Concentration - - Weight - - Height - - Body Mass Index documented in this encounter Patient Instructions * Patient Instructions* Batsheva Morales ARNP - 09/05/2010 8:39 PM CDT Continue home medication.[place] [facility] Patient Instructions Migraine Headache: After Your Visit Your Care Instructions Migraines are painful, throbbing headaches that often start on one side of the h ead. They may cause nausea and vomiting and make you sensitive to light, sound, or smell. Without treatment, migraines can last from 4 hours to a few days. Medicines can help prevent migraines or stop them once they have started. Your doctor can help you find which ones work best for you. Follow-up care is a tamayo part of your treatment and safety. Be sure to make and g o to all appointments, and call your doctor if you are having problems. Its a lso a good idea to know your test results and keep a list of the medicines you t alcira. How can you care for yourself at home? Do not drive if you have taken a prescription pain medicine. Rest in a quiet, dark room until your headache is gone. Close your eyes and t ry to relax or go to sleep. Do not watch TV or read. Put a cold, moist cloth or cold pack on the painful area for 10 to 20 minutes at a time. Put a thin cloth between the cold pack and your skin. Have someone gently massage your neck and shoulders. Take your medicines exactly as prescribed. Call your doctor if you think you are having a problem with your medicine. You will get more details on the specif ic medicines your doctor prescribes. To prevent migraines Keep a headache diary so you can figure out what triggers your headaches. Alessandro iding triggers may help you prevent headaches. Record when each headache began, how long it lasted, and what the pain was like (throbbing, aching, stabbing, or dull). Write down any other symptoms you had with the headache, such as nausea, flashing lights or dark spots, or sensitivity to bright light or loud noise. Not e if the headache occurred near your period. List anything that might have manda ered the headache, such as certain foods (chocolate, cheese, wine) or odors, smo ke, bright light, stress, or lack of sleep. If your doctor has prescribed medicine for your migraines, take it as directe d. You may have medicine that you take only when you get a migraine and medicine that you take all the time to help prevent migraines. If your doctor has prescribed medicine for when you get a headache, take it a t the first sign of a migraine, unless your doctor has given you other instructi ons. If your doctor has prescribed medicine to prevent migraines, take it exactly as prescribed. Call your doctor if you think you are having a problem with your medicine. Find healthy ways to deal with stress. Migraines are most common during or ri ght after stressful times. Take time to relax before and after you do something that has caused a migraine in the past. Try to keep your muscles relaxed by keeping good posture. Check your jaw, fac e, neck, and shoulder muscles for tension, and try relaxing them. When sitting a t a desk, change positions often, and stretch for 30 seconds each hour. Get regular sleep and exercise. Eat regular meals, and avoid foods and drinks that often trigger migraines. T hese include chocolate, alcohol (especially red wine and port), aspartame, monos odium glutamate (MSG), and some additives found in foods (such as hot dogs, baco n, cold cuts, aged cheeses, and pickled foods). Limit caffeine by not drinking too much coffee, tea, or soda. But do not quit caffeine suddenly, because that can also give you migraines. Do not smoke or allow others to smoke around you. If you need help quitting, talk to your doctor about stop-smoking programs and medicines. These can increas e your chances of quitting for good. If you are taking control pills or hormone therapy, talk to your doctor about whether they are triggering your migraines. When should you call for help? Call 911 anytime you think you may need emergency care. For example, call if: You have signs of a stroke. These may include: Sudden numbness, paralysis, or weakness in your face, arm, or leg, especially on only one side of your body. New problems with walking or balance. Sudden vision changes. Drooling or slurred speech. New problems speaking or understanding simple statements, or feeling confused . A sudden, severe headache that is different from past headaches. Call your doctor now or seek immediate medical care if: You develop a fever and a stiff neck. You have new nausea and vomiting, or you cannot keep down food or liquids. Watch closely for changes in your health, and be sure to contact your doctor if: Your headache has not gotten better within 1 or 2 days. Your headaches get worse or happen more often. Where can you learn more? Go to www.[employer].regrob.com in the Health Information search box Enter U690 in the search box to learn more about "Migraine Headache: After Your Visit." [id number] [employer]. Care instructions adapted under license b y [facility] [employer] [facility] disclaims any warranty or liabil ity for your use of this information. This information is not intended to repres ent the ethical and pentecostal beliefs of [facility]. This care instruction is for use with your licensed healthcare professional. If you have questions about a medic al condition or this instruction, always ask your healthcare professional. [employer] disclaims any warranty or liability for your use of this information. Content Version: 8.8.73820; Last Revised: November 17, 2008 documented in this encounter Progress Notes * Batsheva Morales ARNP - 09/05/2010 8:27 PM CDT HISTORY OF PRESENT ILLNESS Ayden Odom, a 40 y.o. female. Headache This is a new (Migraine headache, right side of head and behind the eyes. Heada mercedes started on Sunday. Went to Dr Stephens this morning and was given toradol an d phenergan. Headache got better but has returned. Took 800 mg of ibuprofen wi thout relief. ) problem. The current episode started 2 days ago (Feels like a n ormal migraine headache. Has taken nubain in the past but unsure due to her med ications. Called Dr Carter (typewriter ribbon winder ) and was told to come to urgent care.). Th e problem occurs constantly. The problem has been gradually worsening. The heada mercedes is associated with bright light and loud noise. The pain is located in the r ight unilateral region. The quality of the pain is described as throbbing. The p ain is at a severity of 7/10 (Rates pain at 7.5). Associated symptoms include na usea. Pertinent negatives include no fever and no vomiting. She has tried NSAIDs for the symptoms. REVIEW OF SYSTEMS Review of Systems Constitutional: Negative for fever. HENT: Negative for congestion and sore throat. Respiratory: Negative for cough. Gastrointestinal: Positive for nausea. Negative for vomiting. Neurological: Positive for headaches. All other systems reviewed and are negative. PHYSICAL EXAM Pulse 76 | Temp 98.7 F (37.1 C) | SpO2 98% Physical Exam Constitutional: She is oriented to person, place, and time. She appears well-nou rished. HENT: Head: Normocephalic. Right Ear: Tympanic membrane normal. Left Ear: Tympanic membrane normal. Nose: Nose normal. Mouth/Throat: Uvula is midline, oropharynx is clear and moist and mucous membran es are normal. O2 intact per home portable tank. Neck: Neck supple. Cardiovascular: Normal rate and regular rhythm. Pulmonary/Chest: Breath sounds normal. Neurological: She is alert and oriented to person, place, and time. No cranial n erve deficit. Hand cotton classer moderated and equal. Skin: Skin is warm and dry. Psychiatric: She has a normal mood and affect. ASSESSMENT and PLAN: Encounter Diagnoses 1. Migraine (346.90A) nalbuphine (NUBAIN) 10 mg/mL Injection Soln, NALBUPHINE 1 0 MG/ML INJECTION, promethazine (PHENERGAN) 25 mg/mL Injection Soln, PROMETHAZIN E 25 MG/ML INJECTION If headache persists, follow up with Dr Stephens. Agrees. documented in this encounter Plan of Treatment Not on filedocumented as of this encounter Visit Diagnoses Diagnosis Migraine - Primary Migraine, unspecified, without mention of intractable migraine without mention of status migrainosus documented in this encounter
--- OUTSIDE RECORDS SUMMARY | 2019-10-21 18:27 | XMS REPORT | Encounter Summary ---
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 TEASELER) Narrative Performed At This result has an attachment that is n ot available. Procedure Note Sukhi Whipple MD - 07/08/2010 10:21 AM TEASELER [facility], [facility]. [address] [place] [address]. [place], [place] [address] EKG JERALD VELAZQUEZ [id number] 07/06/10 at 21:00 The rhythm is regular, sinus in origin with a rate of 76 beats per minute. Electrical axis is leftward. RSR' complexes are seen in V1. Q waves are noted in limb leads III and AVF. Compared with previous tracing dated 04/15/10, complexes are similar. Electrical axis has shifted leftward currently. Diagnosis: 1) Sinus rhythm, rate 76 beats per minute. 2) Leftward axis. 3) Incomplete right bundle branch block. 4) Borderline inferior limb lead Q waves, old inferior wall myocardial infarct cannot be completely ruled out. Dictated by Wayne. Dictated by: EKG DD 07/08/10 TD 07/08/10/LUZ ELENA EKG REPORT # [id number] ORDER # Transcriptions 07/08/2010 12:47 PM TEASELER 07/11/2010 3:03 PM TEASELER * TELEMETRY REPORT (07/08/2010 11:54 AM TEASELER) Narrative Performed At This result has an attachment that is n ot available. Procedure Note 07/08/2010 11:54 AM TEASELER * POC GLUCOSE (07/07/2010 11:32 AM TEASELER) POC GLUCOSE 92Comment: Jim Rain, 70 - 110 mg/dl [facility], Point of Care Site,,,, [facility] [place] [facility] POC GLUCOSE 92 70 - 110 mg/dl [facility] Specimen Performing Organization Address [facility] Ph one Number [facility] CLIA# [id number] [place], [place] [address] CLIA# [id number] Milly RIOJAS [address] * POC GLUCOSE (07/07/2010 5:24 AM TEASELER) POC GLUCOSE 92Comment: Jim Rain, 70 - 110 mg/dl [facility], Point of Care [facility],,,, [facility] POC GLUCOSE 92 70 - 110 mg/dl [facility] Specimen Performing Organization Address City/[facility] Ph one Number [facility] CLIA# [id number] [place], [place] [address] - [address] [place] CLIA# [id number] [facility] REBAMilly [address] * PROTIME-INR (07/07/2010 5:00 AM TEASELER) PROTIME 11.1 9.9 - 11.7 Sec [facility] INR 1.03 (L)Comment: 2.0 - 3.0 [facility] ACCT#[id number], ,,,, [facility] Specimen Blood specimen (specimen) Performing Organization Address [facility] LABORATORY SERVICES CLIA# [id number] [facility] [place] [address] - [address] [id number] [facility] [place] [address] * DRUG SCREEN, URINE (07/06/2010 8:54 PM TEASELER) AMPHETAMINE Negative [facility] HEALTH QUAL, URINE [facility] [place] [facility] BARBITURATE Negative [facility] QUAL, URINE [facility] [place] BENZODIAZEPINE Positive [facility] QUAL, URINE [facility] COCAINE METAB Negative [facility] URINE [facility] CANNABINOIDS Negative [facility] QUAL, URINE [facility] METHADONE QUAL, Negative [facility] URINE [facility] OPIATE QUAL, Negative [facility] URINE [facility] PCP QUAL, URINE Negative [facility] Comment: [facility] Chain of Custody Handling was [place] [facility] not performed on this specimen. This screen will not meet medical-legal requirements. CUTOFF LIMITS Amphetamines 1000 ng/ml Barbiturates 200 ng/ml Benzodiazepines 200 ng/ml Cocaine metabolite 300 ng/ml Marijuana metabolites 50 ng/ml Methadone 300 ng/ml Opiates 2000 ng/ml PCP 25 ng/ml [facility]#[id number], ,,,, Specimen Urinary catheter specimen (specimen) Performing Organization Address [facility] LABORATORY SERVICES CLIA# [id number] [facility] CLEMENTE BRITTON [address] - [address]# [id number] [facility] REBAMilly [id number] * SALICYLATE LEVEL (07/06/2010 8:51 PM TEASELER) Pathologist [facility] SALICYLATE 5.5Comment: [facility] [place] 2.8 - 20 mg/dl [facility] ACCT#[id number], ,,,, [place] ALYSA [facility] Specimen Blood specimen (specimen) Performing Organization Address [facility] LAB[facility] SERVICES CLIA# [id number] CLEMENTE RIOJAS [address] - [facility] REBA [address] [place] [address] [place] CLIA# [id number] Milly RIOJAS [address] RE[facility] [address] [place] [address] * ACETAMINOPHEN LEVEL (07/06/2010 8:51 PM TEASELER) [facility] ACETAMINOPHEN <10.0 (L)Comment: 10 - 30 ug/ml [facility] BILOXICLEMENTE BOSS [facility] ACCT#[id number], ,,,RE[facility] LAB Specimen Blood specimen (specimen) Performing Organization Address [facility] CLIA# [id number] CLEMENTE RIOJAS [address] - [facility] REBA [address] [place] [address] [place] CLIA# [id number] ALYSA REBAMilly S [address] [facility] [address] [place] [address] * CBC WITH DIFFERENTIAL (07/06/2010 8:51 PM TEASELER) [facility] WBC 9.27 3.0 - 10.4 x10E3 [facility] ALYSA BRITTON LAB RBC 4.62 3.77 - 4.97 x10E6 [facility] ALYSA BRITTON LAB HEMOGLOBIN 14.7 11.9 - 15.0 g/dL [facility] ALYSA BRITTON LAB HEMATOCRIT 44.4 (H) 34.4 - 43.6 % [facility] ALYSA BRITTON LAB MCV 96.2 79 - 100 fL [facility] ALYSA BRITTON LAB MCH 31.8 28 - 34 pg [facility] ALYSA BRITTON LAB MCHC 33.0 32 - 35 g/dL [facility] ALYSA BRITTON LAB RDW 13.6 11.5 - 15.1 % [facility] ALYSA BRITTON LAB PLATELETS 168 148 - 408 x10E3 [facility] ALYSA BRITTON LAB MPV 8.4 7.4 - 10.6 fL [facility] ALYSA BRITTON LAB NEUTROPHILS 60.8 43 - 73 % [facility] ALYSA BRITTON LAB LYMPHOCYTES 31.0 19 - 47 % [facility] ALYSA BRITTON LAB MONOCYTES 4.2 3 - 9 % [facility] ALYSA BRITTON LAB EOSINOPHILS 3.6 0 - 6 % [facility] ALYSA BRITTON LAB BASOPHILS 0.4 0 - 1.2 % [facility] ALYSA BRITTON LAB NEUTROPHIL 5.64 1.3 - 7.6 x10E3 [facility] ALYSA BRITTON LAB LYMPHOCYTE 2.88 0.6 - 4.9 x10E3 [facility] ALYSA BRITTON LAB MONOCYTE 0.39 0.1 - 0.9 x10E3 [facility] ALYSA BRITTON LAB EOSINOPHIL 0.33 (H) 0.0 - 0.2 x10E3 [facility] ALYSA BRITTON LAB BASOPHILS 0.04Comment: [facility] 0 - 0.1 x10E3 [facility] ACCT#[id number], ,,,, CENTER ALYSA BRITTON [facility] Specimen Blood specimen (specimen) Performing Organization Address City/State/Zipcomt Ph one Number [facility] LABORATORY SERVICES CLIA# [id number] ALYSA BRITTON [place] [address] - ALYSA BRITTON [address] [place], [place] [address]IA# [id number] Milly RIOJAS S [address] * COMPREHENSIVE METABOLIC PANEL (07/06/2010 8:51 PM TEASELER) GLUCOSE 131 (H) 70 - 100 mg/dl [facility] ALYSA BRITTON LAB BUN 19.0 7 - 20 mg/dl [facility] ALYSA [facility]BA LAB CREATININE 1.02 (H) 0.6 - 1.0 mg/dl [facility] ALYSA BRITTON LAB BUN/CREAT RATIO 18.6 10 - 20 [facility] ALYSA BRIT[facility] LAB GFR 64 >60 ml/min [facility] ALYSA BRITTON LAB SODIUM 138 135 - 145 mmol/L [facility] ALYSA BRITTON LAB POTASSIUM 3.2 (L) 3.3 - 4.8 mmol/L [facility] LAB CHLORIDE 107 98 - 107 mmol/L [facility] ALYSA [facility]BA LAB CO2 25.6 22 - 31 mmol/L [facility] ALYSA BRITTON LAB ANION GAP 9 4 - 20 [facility] ALYSA BRITTON LAB CALCIUM 8.1 (L) 8.5 - 10.1 mg/dl [facility] ALYSA BRITTON LAB ALBUMIN 3.5 3.4 - 5.0 g/dl [facility] ALYSA BRITTON LAB TOTAL PROTEIN 6.7 6.4 - 8.2 g/dl [facility] ALYSA BRITTON LAB GLOBULIN (CALC) 3.2 [facility] ALYSA [facility] ALBUMIN/GLOBULI 1.1 [facility] N RATIO [place] ALYSA BRITTON LAB BILIRUBIN TOTAL 0.3 <1.1 mg/dl [facility] ALYSA BRITTON LAB ALKALINE 134 50 - 136 IU/L [facility] PHOSPHATASE [place] ALYSA REBA LAB AST 26 10 - 40 IU/L [facility] ALYSA BRITTON LAB ALT 49Comment: CLEMENTE ROBISON 25 - 70 IU/L [facility] ACCT#[id number], ,,,, CENTER ALYSA REBA LAB Specimen Blood specimen (specimen) Performing Organization Address City/State/Zipcode Ph one Number [facility]ORATORY SERVICES CLIA# [id number] CLEMENTE RIOJAS [address] - ALYSA BRITTON [address] [place] [address] CLIA# [id number] ALYSA BRITTON Milly S [address] [place] [facility] [address] [place] [address] documented in this encounter Visit Diagnoses Diagnosis Altered mental status Type II or unspecified type diabetes me llitus without mention of complication, not stated as uncontrolled Hypokalemia Hypopotassemia Mental status change Altered mental status Narcolepsy and cataplexy Narcolepsy with cataplexy documented in this encounter Administered Medications Action Date Dose Rate Site Medication Order MAR Action 07/07/2010 8:56 AM TEASELER 300 mg OXcarbazepine (TRILEPTAL) tablet 300 mg Given 300 mg, Oral, TWO TIMES DAILY, First dose on Sun07/06/10 at 2300, Until Discontinued, Routine, Previous Med: OXcarbazepine (TRILEPTAL) 150 mg Oral tablet - Orig Sig - Take 300 mg by mout h 2 times daily. , 07/07/2010 8:57 AM TEASELER 10 mEq potassium chloride SR (K-DUR) tablet 10 Given mEq 10 mEq, Oral, TWO TIMES DAILY, First dose on Sun07/06/10 at 2300, Until Discontinued, Routine, Previous Med: potassium chloride SR (K-DUR) 10 mEq Oral tablet - Orig Sig - Take 1 Tab by mouth 2 times daily. , 07/07/2010 5:28 AM TEASELER 100 mL/hr sodium chloride 0.9 % infusion New Bag IV, at 100 mL/hr, CONTINUOUS, Starting Sun07/06/10 at 2045, Until Sun07/07/10 at 1430, Routine 100 mL/hr 100 mL/hr New Bag 07/06/2010 9:49 PM TEASELER 100 mL/hr New Bag 07/06/2010 9:02 PM TEASELER 07/07/2010 8:57 AM TEASELER 100 mg topiramate (TOPAMAX) tablet 100 mg Given 100 mg, Oral, TWO TIMES DAILY, First dose on Sun07/06/10 at 2300, Until Discontinued, Routine, Previous Med: topiramate (TOPAMAX) 100 mg Oral tablet - Orig Sig - Take 1 Tab by mouth 2 time s daily. , documented in this encounter
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
--- OUTSIDE RECORDS SUMMARY | 2019-10-21 18:27 | XMS REPORT | Encounter Summary ---
Author Author [facility] Address Unknown Phone Unavailable Care Team Providers Care Bilingual Spanish Inbound Sales Name Role Phone Robby Rajan CONSTANTIN Unavailable Phong Stephens MD PCP Unavailable Reason for Visit * Reason Comments Tingling Left side of face & arm. R eportedly started "just all at once" while sitting & eating at [employer]. Headache Ongoing for several days. Took percocet the 1st day and only tylenol since then. Nausea Ongoing off & on all day. Reports that she is out of her phenergan. Dizziness Started around 1830 this ev ening. * Auth/Cert Referred By Contact Referred To Contact Status Reason Specialty Diagnoses / Procedures [facility] Icu [address] [place] [address] Closed Inpatient Encounter Details Care Team Description Date Type Department Reggie Ramirez MD NO ADDRESS ON FILE Phong Stephens MD NO ADDRESS ON FILE 08/09/2010 Emergency [facility] ICU 08/10/2010 [address] [place] [address] Social History Date Tobacco Use [...] Signs Reading Time Taken Comments Vital Sign 104/58 08/10/2010 7:01 AM FURNACE CARETAKER Blood Pressure 69 08/10/2010 5:30 AM FURNACE CARETAKER Pulse 36.9 C (98.5 F) 08/10/2010 7:01 AM FURNACE CARETAKER Temperature 16 08/10/2010 7:01 AM FURNACE CARETAKER Respiratory Rate 98% 08/10/2010 7:01 AM FURNACE CARETAKER Oxygen Saturation - - Inhaled Oxygen Concentration 128.4 kg (283 lb 1.6 oz) 08/09/2010 10:05 PM FURNACE CARETAKER Weight 160 cm (5' 3") 08/09/2010 10:05 PM FURNACE CARETAKER Height 50.15 08/09/2010 10:05 PM FURNACE CARETAKER Body Mass Index documented in this encounter Discharge Summaries * Phong Stephens MD - 08/10/2010 8:23 AM FURNACE CARETAKER This discharge note has been dictated. ACE CARETAKER documented in this encounter Discharge Instructions * Patient Instructions* Ari Stanley Physician - 08/11/2010 10:34 AM FURNACE CARETAKER * Additional Instructions* Amita Hopson RN - 08/09/2010 FOLLOW-UP Follow up with Phong Stephens MD as per previous schedules. SIGNS AND SYMPTOMS TO REPORT Contact me if you experience any of the following symptoms: any recurrance or wo rsening of your problems. ACTIVITY Your activity level is: activity as tolerated. DIET Your diet is: Diabetic diet (specify calories / restrictions) and heart healthy YOUR HOSPITAL PROBLEMS ADDRESSED INCLUDE Dizziness near syncope Possible hyperventilation Possible drug interactions chel with illicit use marijuana and benzos * Attachments The following attachments cannot be sent through Care Everywhere.* DIZZINESS: AFTER YOUR VISIT (MEXICAN) * NAUSEA AND VOMITING: AFTER YOUR VISIT (MEXICAN) * USING YOUR MEDICINES: AFTER YOUR VISIT (MEXICAN) documented in this encounter Medications at Time [...] Oral tablet by mouth 4 times daily. 08/10/2010 08/22/2010 ibuprofen (MOTRIN) 800 mg Take 1 Tab by 50 Tab 0 Oral tablet mouth 3 times daily with meals. 06/13/2010 06/15/2011 furosemide (LASIX) [...] times tabletIndications: daily. Fibromyalgia 05/04/2010 05/18/2011 Insulin [place], by 1 Package 11 Disposable, (BD INSULIN Misc.(Non-Miko PEN NEEDLE UF SHORT) 31 X g; Combo /16 " Misc Route) route. NdleIndications: Type II or unspecified type diabetes mellitus without mention of complication, not stated as uncontrolled 04/15/2010 12/09/2010 citalopram (CELEXA) 20 mg Take 20 mg by 0 Oral tablet mouth daily finisher special stocks. documented as of this encounter Progress Notes * Amita Hopson RN - 08/10/2010 9:40 AM FURNACE CARETAKER Patient dismissed with all personal belongings at this time in stable condition. Reviewed discharge instructions with patient and her home caregiver. Taken out to vehicle via W/C accompanied by student nurse and patient's caregivers. ACE CARETAKER * Amita Hopson RN - 08/10/2010 8:30 AM FURNACE CARETAKER Patient discharged- she will take am medication as ordered per herself. ACE CARETAKER documented in this encounter H&P Notes * Phong Stephens MD - 08/10/2010 11:01 AM FURNACE CARETAKER [facility]. [address] [place] [address]. [place], [place] [address] HISTORY AND PHYSICAL Patient: JERALD VELAZQUEZ Location: [facility] Room#: 109 CSN: [id number] Date: 08/09/2010 DIAGNOSES: 1. Dizziness with secondary hyperventilation and near-syncope. 2. Near-syncope, probably multifactorial. 3. History of polypharmacy. 4. History of illicit drug use. 5. History of diabetes. 6. Headache. 7. History of arteriosclerotic vascular disease. 8. History of seizure disorder. 9. History of asthma. HISTORY: This is a 40-year-old woman with multiple health issues. She presente d to the emergency room at this time complaining of acute onset of the sequence of dizziness followed by paresthesias of the hands, arms, right face, some nause a and subsequently near-syncopal episode. She had just entered a local food res taurant. Her friends and family were able to get her to the car and bring her t o the emergency room. In the emergency room, details are documented and she was admitted to an observation bed, actually in a stable condition by the time of h er admission here. She had had an episode, apparently, transient hypotension af ter administration of medication to treat her symptoms. PAST MEDICAL HISTORY: She has the history of asthma, diabetes, gastroesophageal reflux, headaches, arteriosclerotic vascular disease with previous DE, congesti ve heart failure, seizure activity. PAST SURGICAL HISTORY: She had a recent hemorrhoidectomy. She has had cystosco pies, cholecystectomy, tubal ligation, hysterectomy, appendectomy. FAMILY HISTORY: Contributory for cardiovascular disease, hypertension, colon ca ncer, diabetes, stroke. SOCIAL HISTORY: She has marginal social situation. She is . Always has multiple people surrounding her with care for her medical issues. She smokes e very day. Still drinks alcohol. She admits to smoking marijuana 2-3 weeks ago. Denied any other use. Told me she was not sure how that benzodiazepines got in her system. Told the nursing staff that she thought she had picked the wrong pill up off the floor after she had dropped hers and maybe she had gotten one th at way. REVIEW OF SYSTEMS: This morning, her only complaint is of a headache which has been present for several days. It is right posterior occipital, right neck and upper back. The headache itself was not associated with the specific neurologic deficits, nor was it part of the complex of symptoms that she describes of the episode last evening. The patient otherwise denies chest pain, awareness of dys rhythmia increasing shortness of breath, nausea, vomiting and diarrhea. Despite the history of seizures, she denied having any seizure activity related to this episode. No other acute bowel or bladder changes. No other acute lateralizing neurologic deficits. PHYSICAL EXAMINATION: VITAL SIGNS: She is afebrile, pulse is 70, respirations 16, blood pressure 104/ 56. GENERAL: The patient this morning is alert, not in marked distress, able to giv e details of her history. HEENT: Pupils equal, round and reactive. Extraocular muscles are intact. No n ystagmus. Mucous membranes are hydrated. NECK: Tender in the posterior right aspect on to the posterior occipital region into the upper back muscles with associated tension. CHEST: A few scattered coarse breath sounds, which were chronic for her. CARDIOVASCULAR: Regular without rubs, murmurs or gallops. ABDOMEN: Obese but soft throughout. No rebound, guarding or masses. : Not done. RECTAL: Not done. EXTREMITIES: Symmetrical with puffy edema. NEUROLOGICAL: She is alert, oriented x3. No cranial nerve deficits. She is mo ving all extremities symmetrically. LABORATORY AND X-RAY DATA: CBC: WBCs are 11.4, hemoglobin 15.2, hematocrit 45. 3. Normal appearing differential. Lab chemistries: Sodium is at 133, calcium 7.9, alk phos 155, otherwise negative. INR is at 1.05, apparently is not taking her Coumadin. ABGs are on the chart. Salicylate levels are normal. Blood cul tures are pending. Drug screen is positive for benzodiazepines and cannabinoids . Urinalysis was positive nitrites, rare WBCs. CT head in this report is sadi l. Tylenol levels are normal. HOSPITAL COURSE: In the emergency room and during her hospitalization, the devonte ent was evaluated as above. She is stabilized. She has not had any further epi sodes similar to 1 in the restaurant. No chest pain. No shortness of breath. No progression. In light of the resolution of her symptoms, she will be dismiss ed home. Talked with her about the interactions of her medications and certainl y the illicit drug use. In reviewing her medication, she is taking tramadol for headache, also is on Celexa. The seizure risk that will be sure that she does not take the tramadol. Instead of her Voltaren, which she does not describe brandon ing anyway, we will add Motrin 800 mg t.i.d. for about 10 days for the headache. The patient knows about ongoing followup in our office. If she continues to do drugs, she also understands that we may not be able to continue her care. Her medications that time of dismissal will be: Lantus insulin, metoprolol 100 mg daily, Atarax 25 q.i.d. p.r.n., Risperdal 0.25 q.i.d., Lunesta, Geodon 80 mg b.i .d., K-Dur 10 mEq b.i.d. She is supposed to be on Coumadin 5 mg daily, also Las ix 40 mg b.i.d., Neurontin 600 mg t.i.d., Combivent inhaler. She has Xopenex. She has Celexa 20 mg daily, Trileptal 150 mg b.i.d., Topamax 100 mg b.i.d., Adva ir 550 twice a day, Tylenol, Tessalon Perles, she has oxygen at home. She does have ongoing followups. Dictated by: Phong Stephens MD/MEDQ d: 08/10/2010 08:44:15 t: 08/10/2010 10:48:31 Voice job id: [id number] Internal Job id: [id number] ACE CARETAKER * Phong Stephens MD - 08/10/2010 8:32 AM FURNACE CARETAKER This history and observation dismiss note has been dictated. ACE CARETAKER documented in this encounter Procedure Notes * Matt Lemons, Ari Physician - 08/11/2010 1:25 PM FURNACE CARETAKER Associated Order(s): TELEMETRY REPORT; TELEMETRY REPORT * Aok Scanning, Amb Physician - 08/11/2010 10:11 AM FURNACE CARETAKER Associated Order(s): EKG 12-LEAD; EKG 12-LEAD * Aok Scanning, Amb Physician - 08/10/2010 12:04 PM FURNACE CARETAKER Associated Order(s): EKG 12-LEAD; EKG 12-LEAD * Aok Scanning, [facility] Physician - 08/10/2010 11:52 AM FURNACE CARETAKER Associated Order(s): TELEMETRY REPORT; TELEMETRY REPORT * Clifford Plata MD - 08/10/2010 9:16 AM FURNACE CARETAKER Associated Order(s): EKG 12-LEAD; EKG 12-LEAD [place] [id number] EKG JERALD VELAZQUEZ [id number] 08/09/10 at 2039. Rate 76, VT 0.16, QRS 0.0 8, Bow +41 degrees. The rhythm is regular and of sinus origin. T waves are of l ow amplitude and the QT interval is prolonged. Compared with previous tracing 07-06-10, pathologic Q waves WEre present in the inferior leads at that time. Diagno sis: 1) Normal sinus rhythm. 2) Nonspecific Q-T-U changes possibly due to drug, electrolyte or metabolic abnormalities. Dictated by Sherly ICD: 426.82 Dictated by: EKG DD 08/10/10 TD 08/10/10/LRG EKG REPORT # [id number] ORDER # ACE CARETAKER documented in this encounter ED Notes * Aok Scanning, [facility] Physician - 08/10/2010 10:01 AM FURNACE CARETAKER * Sarita Pearl RN - 08/09/2010 10:12 PM FURNACE CARETAKER BC x 1 drawn and sent. Cancel second culture. Lab notified. ACE CARETAKER * Sarita Pearl RN - 08/09/2010 9:11 PM FURNACE CARETAKER Poison control contacted. If pt received Versed from hemorrhoid surgery, it wou ld not still be in her system on drug screen. [employer] Sales Associate aware half life is 6 hours but wanted to double check. Poison control advised to monitor pt and did not r ecommend narcan or romazicon at this time as if pt does use benzos regularly but unprescribed, might cause seizures. ACE CARETAKER * Sarita Pearl RN - 08/09/2010 8:44 PM FURNACE CARETAKER Portable chest x ray now. ACE CARETAKER * aSrita Pearl RN - 08/09/2010 8:32 PM FURNACE CARETAKER ABG per R Leisure MICT. ACE CARETAKER * Sarita Pearl RN - 08/09/2010 8:31 PM FURNACE CARETAKER Fluid bolus stopped at 2030. IV NS running at ordered rate of 200 cc/hr. ACE CARETAKER * Sarita Pearl RN - 08/09/2010 8:27 PM FURNACE CARETAKER Urine obtained for UA and drug screen. ACE CARETAKER * Sarita Pearl RN - 08/09/2010 8:[address] Ramirez to room. ACE CARETAKER * Sarita Pearl RN - 08/09/2010 8:14 PM FURNACE CARETAKER Pt tried to roll over to change positions and became very dizzy, hot and "swimmy " feeling. Pt back flat on back in trendelenberg and now states hot feeling is gone. Still dizzy and room spinning per pt. Rails up x 2, call light in reach. Pt a & o x 3. ACE CARETAKER * Sarita Pearl RN - 08/09/2010 8:09 PM FURNACE CARETAKER Pt had hemorrhoids removed August 03. No bleeding at this time, racebook writer checked. ACE CARETAKER * Jim Ramirez MD - 08/09/2010 7:45 PM FURNACE CARETAKER HISTORY OF PRESENT ILLNESS Jerald Velazquez, a 40 y.o. female presents to the ED with a Chief Complaint o f Tingling, Headache, Nausea and Dizziness HPI Comments: Onset of L sided paresthesias and headache while eating at fast fo od restaurant tonight. Patient is a 40 y.o. female presenting with tingling, headaches, nausea, and diz ziness. Tingling Primary symptoms include dizziness. Associated symptoms include headaches. Headache Associated symptoms include nausea. Nausea Associated symptoms include headaches. Dizziness Associated symptoms include dizziness, headaches and nausea. REVIEW OF SYSTEMS Review of Systems Gastrointestinal: Positive for nausea. Neurological: Positive for dizziness, tingling, sensory change and headaches. PAST MEDICAL HISTORY REVIEWED Past Medical [...] II GERD (gastroesophageal reflux disease) Headache Acute DE 03/2010 CHF (congestive heart failure) Seizure disorder [...] by MUKESH DOM[facility]NGUEZ at [facility] OR Family History Problem Relation Age [...] Encounter Current Home Medications [facility] by See Admin Instructions route. Before [...] mg by mouth daily early mornin g. DICLOFENAC SODIUM (VOLTAREN) 75 MG ORAL TBEC Take 1 Tab by mouth 2 times cathleen ly. ESZOPICLONE (LUNESTA ORAL) Take by mouth daily at bedtime. FLUTICASONE-SALMETEROL (ADVAIR DISKUS) 500-50 MCG/DOSE INHALATION DSDV Take 1 Puff by inhalation 2 times daily. FUROSEMIDE (LASIX) 40 MG ORAL TABLET Take 1 Tab by mouth 2 times daily. 1 ta b Bid GABAPENTIN (NEURONTIN) 600 MG ORAL TABLET Take 1 Tab by mouth 3 times daily. HYDROXYZINE HCL (ATARAX) 25 MG ORAL TABLET Take 25 mg by mouth 4 times daily . INSULIN NEEDLES, DISPOSABLE, (BD INSULIN PEN NEEDLE UF SHORT) 31 X 5/16 " MISC NDLE by [facility]Non-Drug; Combo Route) route. LEVALBUTEROL HFA (XOPENEX HFA) 45 MCG/ACTUATION INHALATION HFAA Take 2 Puffs by inhalation every 6 hours. OXCARBAZEPINE (TRILEPTAL) 150 MG ORAL TABLET Take 300 mg by mouth 2 times da cornell. OXYCODONE-ACETAMINOPHEN (PERCOCET) 5-325 MG ORAL TABLET Take 1 Tab by mouth every 4 hours as needed for Pain. OXYGEN-AIR DELIVERY SYSTEMS MISC LEISA Take 2 L/min by inhalation daily at [facility]. POTASSIUM CHLORIDE SR (K-DUR) 10 MEQ ORAL TABLET Take 1 Tab by mouth 2 times daily. PROMETHAZINE (PHENERGAN) 25 MG ORAL TABLET Take 1 Tab by mouth every 6 hours as needed for Nausea. RISPERIDONE (RISPERDAL) 0.25 MG ORAL TAB Take [...] during this Encounter Modified Medication Previous Medication INSULIN GLARGINE (LANTUS) 100 UNIT/ML SUBCUT PEN insulin glargine (LANTUS) 100 unit/mL subCUT pen Inject 60 Units by subcutaneous injection. As directed Inject by subcut aneous injection. As directed Medications Discontinued during this Encounter PHYSICAL EXAM Initial Vitals BP 08/09/10 1852 101/44 mmHg Pulse 08/09/10 1852 87 Resp 08/09/10 1852 16 Temp 08/09/10 1852 98 F (36.7 C) Temp src 08/09/10 1852 Oral SpO2 08/09/10 1852 96 % Physical Exam Nursing note and vitals reviewed. Constitutional: She is oriented to person, place, and time. She appears well-dev eloped and well-nourished. overweight HENT: Head: Normocephalic and atraumatic. Right Ear: External ear normal. Left Ear: External ear normal. Mouth/Throat: Oropharynx is clear and moist. Eyes: Conjunctivae and extraocular motions are normal. [...] time. Skin: Skin is warm and dry. MDM Coding Reviewed: previous chart, nursing note and vitals Reviewed previous: labs and CT scan Interpretation: labs and CT scan DIAGNOSTICS LAB: Results for orders placed during the hospital encounter of 08/09/10 (from the [facility] 24 hour(s)) POC GLUCOSE Component Value Range POC GLUCOSE 96 70-110 (mg/dl) POC GLUCOSE GRAPH VALUE 96 70-110 (mg/dl) CBC WITH DIFFERENTIAL Component Value Range WBC 11.47 (*) 3.0-10.4 (x10E3) RBC 4.84 3.77-4.97 (x10E6) HEMOGLOBIN 15.2 (*) 11.9-15.0 (g/dL) HEMATOCRIT 45.3 (*) 34.4-43.6 (%) MCV 93.7 79-100 (fL) MCH 31.5 28-34 (pg) MCHC 33.6 32-35 (g/dL) RDW 13.2 11.5-15.1 (%) PLATELETS 197 148-408 (x10E3) MPV 8.2 7.4-10.6 (fL) NEUTROPHILS 66.3 43-73 (%) LYMPHOCYTES 26.1 19-47 (%) MONOCYTES 4.9 3-9 (%) EOSINOPHILS 2.2 0-6 (%) BASOPHILS 0.5 0-1.2 (%) NEUTROPHIL ABSOLUTE 7.60 1.3-7.6 (x10E3) LYMPHOCYTE ABSOLUTE 3.00 0.6-4.9 (x10E3) MONOCYTE ABSOLUTE 0.56 0.1-0.9 (x10E3) EOSINOPHIL ABSOLUTE 0.25 (*) 0.0-0.2 (x10E3) BASOPHILS ABSOLUTE 0.06 0-0.1 (x10E3) COMPREHENSIVE METABOLIC PANEL Component Value Range GLUCOSE 96 70-100 (mg/dl) BUN 17.0 7-20 (mg/dl) CREATININE 0.95 0.6-1.0 (mg/dl) BUN/CREAT RATIO 17.9 10-20 GFR 70 >60 (ml/min) SODIUM 133 (*) 135-145 (mmol/L) POTASSIUM 3.7 3.3-4.8 (mmol/L) CHLORIDE 104 98-107 (mmol/L) CO2 24.3 22-31 (mmol/L) ANION GAP 8 4-20 CALCIUM 7.9 (*) 8.5-10.1 (mg/dl) ALBUMIN 3.6 3.4-5.0 (g/dl) TOTAL PROTEIN 7.3 6.4-8.2 (g/dl) GLOBULIN (CALC) 3.7 ALBUMIN/GLOBULIN RATIO 1.0 BILIRUBIN TOTAL 0.2 <1.1 (mg/dl) ALKALINE PHOSPHATASE 155 (*) 50-136 (IU/L) AST 12 10-40 (IU/L) ALT 40 25-70 (IU/L) PROTIME-INR Component Value Range PROTIME 11.3 9.9-11.7 (Sec) INR 1.05 (*) 2.0-3.0 D-DIMER Component Value Range D-DIMER QUANT 653.0 (*) 0-400 (ng/mL) POC GLUCOSE Component Value Range POC GLUCOSE 91 70-110 (mg/dl) POC GLUCOSE GRAPH VALUE 91 70-110 (mg/dl) URINALYSIS WITH REFLEX CULTURE Component Value Range GLUCOSE UA Negative Negative (mg/dl) BILIRUBIN UA Negative Negative KETONES UA Negative Negative (mg/dl) SPECIFIC GRAVITY UA 1.012 PH UA 5.5 PROTEIN UA Negative Negative (mg/dl) UROBILINOGEN UA <2.0 0.2-1.0 (EU/dl) NITRITE UA Positive (*) Negative BLOOD UA Negative Negative LEUKOCYTE ESTERASE UA Small (*) Negative COLOR UA Yellow CLARITY UA Hazy WBC UA 2-5 0-5 (/HPF) BACTERIA UA 3+ (*) Negative (/HPF) MUCOUS, URINE Heavy (/LPF) EPITHELIAL CELLS, URINE 1+ squamous AMORPHOUS CRYSTAL 1+ Negative (/HPF) COMMENT, URINE See Culture Report. DRUG SCREEN, URINE Component Value Range AMPHETAMINE QUAL, URINE Negative BARBITURATE QUAL, URINE Negative BENZODIAZEPINE QUAL, URINE Positive COCAINE METAB QUAL URINE Negative CANNABINOIDS QUAL, URINE Positive METHADONE QUAL, URINE Negative OPIATE QUAL, URINE Negative PCP QUAL, URINE Negative BLOOD GAS ARTERIAL Component Value Range PH ARTERIAL 7.33 (*) 7.35-7.45 PO2 ARTERIAL 86 80-100 PCO2 ARTERIAL 44 32-45 HCO3 ARTERIAL 23.2 TCO2, ARTERIAL 24.6 24-28 BASE EXCESS ABG -2.8 O2 SAT EST ARTERIAL 96 90-97 (%) ALLENS TEST OK [facility] SITE LEFT RADIAL RADIOLOGY: CT HEAD WO CONTRAST (Results Pending) XR CHEST PA OR AP (Results Pending) neg EKG: PROCEDURES MEDICAL DECISION MAKING AND PLAN OF CARE Last vitals BP 101/45 | Pulse 76 | Temp(Src) 98 F (36.7 C) (Oral) | Resp 16 | Ht 5' 3.5" (1.613 m) | Wt 117.935 kg | BMI 45.33 kg/m2 | SpO2 99% CLINICAL IMPRESSION Encounter Diagnoses Code Name Primary? 458.0 Orthostatic hypotension CASE DISCUSSED Poison control states Versed she receiving 0n #/2 not cause of po sitive drug screen for Benzo seen here today. PATIENT COUNSELING Diagnostics reviewed and questions answered. Diagnosis, treatment options and p radha of care discussed with understanding verbalized. DISPOSITION, EDUCATION AND MEDICATION RECONCILIATION Medications reconciled. See after visit summary for patient education on discha rged patients. Positive drug screen for Benzo and marijuana. Admit observation for Dr Stephens. ACE CARETAKER * Sarita Pearl RN - 08/09/2010 7:[address] Ramirez to room. ACE CARETAKER * Sarita Pearl, RN - 08/09/2010 7:28 PM FURNACE CARETAKER Pt states she feels like she is going to pass out. BP noted to be low. Placed in trendelenberg. 96/58 manual BP. Monitor BP finally read and says 101/45. ACE CARETAKER * Sarita Pearl RN - 08/09/2010 7:07 PM FURNACE CARETAKER Pt to CT with Tech via wheelchair. Pt alert and oriented x 3. L automatic presser weaker th an R. Plantar & Dorsiflexion equal bilaterally. ACE CARETAKER * Lakeisha Abdi RN - 08/09/2010 7:04 PM FURNACE CARETAKER Report given and care turned over to Tray Floyd RN. ACE CARETAKER * Lakeisha Abdi RN - 08/09/2010 6:59 PM FURNACE CARETAKER Arrived to ER via wheelchair with multiple complaints. Male friend, with pt attempting to answer all questions for pt. Pt appears drowsy when answering que stions but states that she hasn't taken any of her percocet since yesterday sinc e it "wasn't working." Pt states that she was going to try to wait till tomorrow to go to see Dr. Mike patel for her headache and the feeling like something is stuck in her throat. Dr. Ramirez aware of pt with orders received. ACE CARETAKER documented in this encounter Miscellaneous Notes * Scanned Form - Aok Scanning, [facility] Physician - 08/11/2010 11:51 AM FURNACE CARETAKER * Scanned Form - Aok Scanning, [facility] Physician - 08/11/2010 10:34 AM FURNACE CARETAKER * Care Plan - Amita Hopson RN - 08/10/2010 9:53 AM FURNACE CARETAKER Problem: General Plan of Care (Adult, Obstetrics) Goal: Individualization/Patient-Specific Goal (Adult, Obstetrics) The patient and/or their technical account representative will achieve their patient-specific goal s related to the plan of care. The patient-specific goals include: Outcome: Adequate for Discharge Date Met: 08/10/10 Return home with caregivers. Comments: Dismissed to home ACE CARETAKER documented in this encounter Plan of Treatment Order Schedule Name Type Priority Associated Diag noses ONE TIME for 1 Occurrences starting 01/2011 until 08/09/2010 MRSA ACTIVE SURVEILLANCE Microbiology Routine documented as of this encounter Procedures Comments Procedure Name Priority Date/Time Associated Diag nosis TELEMETRY REPORT 08/11/2010 1:25 PM FURNACE CARETAKER EKG 12-LEAD Stat 08/11/2010 10:11 AM FURNACE CARETAKER TELEMETRY REPORT 08/10/2010 11:52 AM FURNACE CARETAKER XR CHEST PA OR AP 1 VW Stat 08/09/2010 8:53 PM FURNACE CARETAKER BLOOD CULTURE Stat 08/09/2010 8:40 PM FURNACE CARETAKER BLOOD GAS ARTERIAL Stat 08/09/2010 8:30 PM FURNACE CARETAKER URINALYSIS WITH REFLEX Stat 08/09/2010 CULTURE 8:28 PM FURNACE CARETAKER DRUG SCREEN, URINE Stat 08/09/2010 8:28 PM FURNACE CARETAKER URINE CULTURE Stat 08/09/2010 8:28 PM FURNACE CARETAKER POC GLUCOSE Routine 08/09/2010 7:[address] HEAD WO CONTRAST Stat 08/09/2010 7:25 PM FURNACE CARETAKER CBC WITH DIFFERENTIAL Stat 08/09/2010 7:00 PM FURNACE CARETAKER PROTIME-INR Stat 08/09/2010 7:00 PM FURNACE CARETAKER D-DIMER Stat 08/09/2010 7:00 PM FURNACE CARETAKER ACETAMINOPHEN LEVEL Stat 08/09/2010 7:00 PM FURNACE CARETAKER SALICYLATE LEVEL Stat 08/09/2010 7:00 PM FURNACE CARETAKER COMPREHENSIVE METABOLIC Stat 08/09/2010 PANEL 7:00 PM FURNACE CARETAKER POC GLUCOSE Routine 08/09/2010 6:56 PM FURNACE CARETAKER documented in this encounter Results * TELEMETRY REPORT (08/11/2010 1:25 PM FURNACE CARETAKER) Narrative Performed At This result has an attachment that is n ot available. Procedure Note 08/11/2010 1:25 PM FURNACE CARETAKER * EKG 12-LEAD (08/11/2010 10:11 AM FURNACE CARETAKER) Narrative Performed At This result has an attachment that is n ot available. Procedure Note Clifofrd Plata MD - 08/10/2010 9:16 AM FURNACE CARETAKER [facility] [address] [place], [place] [id number] EKG JERALD VELAZQUEZ [id number] 08/09/10 at 2039. Rate 76, VT 0.16, QRS 0.08, Bow +41 degrees. The rhythm is regular and of sinus origin. T waves are of low amplitude and the QT interval is prolonged. Compared with previous tracing 07-06-10, pathologic Q waves WEre present in the inferior leads at that time. Diagnosis: 1) Normal sinus rhythm. 2) Nonspecific Q-T-U changes possibly due to drug, electrolyte or metabolic abnormalities. Dictated by Sherly ICD: 426.82 Dictated by: EKG DD 08/10/10 TD 08/10/10/LRG EKG REPORT # [id number] ORDER # Transcriptions 08/10/2010 12:04 PM FURNACE CARETAKER 08/11/2010 10:11 AM FURNACE CARETAKER * TELEMETRY REPORT (08/10/2010 11:52 AM FURNACE CARETAKER) Narrative Performed At This result has an attachment that is n ot available. Procedure Note 08/10/2010 11:52 AM FURNACE CARETAKER * XR CHEST PA OR AP (08/09/2010 8:53 PM FURNACE CARETAKER) Specimen Impressions Performed At : Normal chest. CT HEAD: HISTORY: Headache. Exam is compared to prior exam of 05-26. There are multiple axial images at 5 mm intervals throughout the brain. No contrast given. The ventricles and sulci are within nor mal limits. There is no mass or mass effect seen. There is no intracr anial hemorrhage. There is no evidence of acute infarction. No pare nchymal abnormalities are seen. IMPRESSION: Normal noncontrast CT of the head. Narrative Performed At PORTABLE CHEST X-RAY AND CT HEAD: CHEST: HISTORY: Shortness of breath. The cardiac silhouette and pulmonary va scularity are within normal limits. There are no infiltrates or masses seen . No evidence of pneumothorax. Procedure Note Donaldo Aleman MD - 08/10/2010 2:32 PM FURNACE CARETAKER PORTABLE CHEST X-RAY AND CT HEAD: CHEST: HISTORY: Shortness of breath. The cardiac silhouette and pulmonary vascularity are within normal limits. There are no infiltrates or masses seen. No evidence of pneumothorax. IMPRESSION: Normal chest. CT HEAD: HISTORY: Headache. Exam is compared to prior exam of 05-26-10. There are multiple axial images at 5 mm intervals throughout the brain. No contrast given. The ventricles and sulci are within normal limits. There is no mass or mass effect seen. There is no intracranial hemorrhage. There is no evidence of acute infarction. No parenchymal abnormalities are seen. IMPRESSION: Normal noncontrast CT of the head. * BLOOD CULTURE (08/09/2010 8:40 PM FURNACE CARETAKER) [facility] BLOOD CULTURE NO GROWTH IN 5 DAYSComment: [facility] ACCT#[id number], ,,,, REBA LAB Specimen Blood specimen (specimen) Performing Organization Address [facility] LABORATORY SERVICES CLIA# [id number] [place], [place] [address] [address]# [id number] [facility] Milly BRITTON [address] * BLOOD GAS ARTERIAL (08/09/2010 8:30 PM FURNACE CARETAKER) [facility] PH ARTERIAL 7.33 (L) 7.35 - 7.45 [facility] ALYSA BRITTON LAB PO2 ARTERIAL 86 80 - 100 [facility] ALYSA BRITTON LAB PCO2 ARTERIAL 44 32 - 45 [facility] ALYSA BRITTON LAB HCO3 ARTERIAL 23.2 [facility] ALYSA BRITTON LAB TCO2, ARTERIAL 24.6 24 - 28 [facility] ALYSA BRITTON LAB BASE EXCESS ABG -2.8 [facility] ALYSA BRITTON LAB O2 SAT EST 96 90 - 97 % [facility] ALYSA BRITTON LAB ALLENS TEST OK [facility] ALYSA BRITTON [facility] P[facility] SITE LEFT RADIALComment: [facility] ACCT#[id number], ,,,, REBA LAB Specimen Arterial blood specimen (specimen) Performing Organization Address [facility] one Number [facility] CLIA# [id number] [place], [place] [address] [address]# [id number] Milly RIOJAS [address] * URINE CULTURE (08/09/2010 8:28 PM FURNACE CARETAKER) [facility] ORGANISM KLEBSIELLA PNEUMONIAE (A) [facility] ALYSA BRITTON LAB URINE CULTURE COLONY COUNT: >100,000 (A) [facility] REBA LAB Specimen Antibiotic Method Susceptibility Organism AMIKACIN DOMENICA MCG/ML <=2: Susceptible Klebsiella pneumoniae AMPICILLIN DOMENICA MCG/ML >=32: Resistant Klebsiella pneumoniae AMPICILLIN/ SULBACTAM DOMENICA MCG/ML 4: Susceptible Klebsiella pneumoniae CEFAZOLIN DOMENICA MCG/ML <=4: Susceptible Klebsiella pneumoniae CEFEPIME DOMENICA MCG/ML <=1: Susceptible Klebsiella pneumoniae CEFTAZIDIME DOMENICA MCG/ML <=1: Susceptible Klebsiella pneumoniae CEFTRIAXONE DOMENICA MCG/ML <=1: Susceptible Klebsiella pneumoniae CIPROFLOXACIN DOMENICA MCG/ML <=0.25: Susceptible Klebsiella pneumoniae ERTAPENEM DOMENICA MCG/ML <=0.5: Susceptible Klebsiella pneumoniae GENTAMICIN DOMENICA MCG/ML <=1: Susceptible Klebsiella pneumoniae IMIPENEM DOMENICA MCG/ML <=1: Susceptible Klebsiella pneumoniae LEVOFLOXACIN DOMENICA MCG/ML <=0.12: Susceptible Klebsiella pneumoniae NITROFURANTOIN DOMENICA MCG/ML 32: Susceptible Klebsiella pneumoniae PIPERACILLIN/ TAZOBACTAM DOMENICA MCG/ML <=4: Susceptible Klebsiella pneumoniae TOBRAMYCIN DOMENICA MCG/ML <=1: Susceptible Klebsiella pneumoniae TRIMETHOPRIM/ SULFAMETHOXAZOLE DOMENICA MCG/ML <=20: Susceptible Klebsiella pneumoniae Comment: [facility] ACCT#[id number], ,,,, Performing Organization Address City/State/[place] Ph one Number [facility] SERVICES CLIA# [id number] CLEMENTE RIOJAS [address] - ALYSA BRITTON [address] [place] [address]# [id number] Milly RIOJAS S [address] * DRUG SCREEN, URINE (08/09/2010 8:28 PM FURNACE CARETAKER) AMPHETAMINE Negative [facility] QUAL, URINE CENTER ALYSA BRITTON LAB BARBITURATE Negative [facility], URINE CENTER ALYSA BRITTON LAB BENZODIAZEPINE Positive [facility] QUAL, URINE CENTER ALYSA BRITTON LAB COCAINE METAB Negative [facility] URINE CENTER ALYSA BRITTON LAB CANNABINOIDS Positive [facility] QUAL, URINE HEPZIBAH ALYSA BRITTON LAB METHADONE QUAL, Negative [facility] URINE HEPZIBAH ALYSA BR[facility]TON LAB OPIATE QUAL, Negative [facility] URINE HEPZIBAH ALYSA BRITTON LAB PCP QUAL, URINE Negative [facility] Comment: [facility] Chain of Custody Handling was [facility] not performed on this specimen. This screen will not meet medical-legal requirements. CUTOFF LIMITS Amphetamines 1000 ng/ml Barbiturates 200 ng/ml Benzodiazepines 200 ng/ml Cocaine metabolite 300 ng/ml Marijuana metabolites 50 ng/ml Methadone 300 ng/ml Opiates 2000 ng/ml PCP 25 ng/ml [facility] ACCT#[id number], ,,,, Specimen Urine, clean catch Performing Organization Address [facility] Ph one Number [facility] CLIA# [id number] CLEMENTE RIOJAS [address] - ALYSA [address]# [id number] ALYSA BRITTONMilly [address] * URINALYSIS WITH REFLEX CULTURE (08/09/2010 8:28 PM FURNACE CARETAKER) GLUCOSE UA Negative Negative mg/dl [facility] ALYSA BRITTON LAB BILIRUBIN UA Negative Negative [facility] ALYSA BRITTON LAB KETONES UA Negative Negative mg/dl [facility] ALYSA BRITTON LAB SPECIFIC 1.012 [facility] GRAVITY UA HEPZIBAH ALYSA BRITTON LAB PH UA 5.5 [facility] ALYSA BRITTON LAB PROTEIN UA Negative Negative mg/dl [facility] ALYSA BRITTON LAB UROBILINOGEN UA <2.0 0.2 - 1.0 EU/dl [facility] ALYSA BRITTON LAB NITRITE UA Positive (H) Negative [facility] ALYSA BRITTON LAB BLOOD UA Negative Negative [facility] ALYSA BRITTON LAB LEUKOCYTE Small (H) Negative [facility] ESTERASE UA HEPZIBAH ALYSA REBA LAB COLOR UA Yellow [facility] ALYSA BRITTON LAB CLARITY [facility] WBC UA 2-5 0 - 5 /HPF [facility] ALYSA BRITTON LAB BACTERIA UA 3+ (H) Negative /HPF [facility] ALYSA BRITTON LAB MUCOUS, URINE Heavy /LPF [facility] ALYSA BRITTON LAB EPITHELIAL 1+ squamous [facility] CELLS, URINE HEPZIBAH ALYSA BRITTON LAB AMORPHOUS 1+ Negative /HPF [facility] ALYSA BRITTON LAB COMMENT, URINE See Culture Report.Comment: [facility] ACCT#[id number], ,,,, REBA LAB Specimen Urine, clean catch Performing Organization Address [facility] Ph one Number [facility] CLIA# [id number] CLEMENTE RIOJAS [address] - ALYSA BRITTON [address] [place] [address] CLIA# [id number] Milly RIOJAS [id number] REBA [address] [place] [address] * POC GLUCOSE (08/09/2010 7:37 PM FURNACE CARETAKER) POC GLUCOSE 91Comment: Jim Rain, 70 - 110 mg/dl [facility], Point of Care Site,,,, CENTER ALYSA BRTITON LAB POC GLUCOSE 91 70 - 110 mg/dl [facility] HEPZIBAH ALYSA BRITTON LAB Specimen Capillary blood specimen (specimen) Performing Organization Address City/State/Zipcode Ph one Number [facility] CLIA# [id number] CLEMENTE RIOJAS [address] - ALYSA BRITTON [address] [place] [address] ALYSA CLIA# [id number] Milly RIOJAS [address] * CT HEAD WO CONTRAST (08/09/2010 7:25 PM FURNACE CARETAKER) Specimen Impressions Performed At : Normal chest. CT HEAD: HISTORY: Headache. Exam is compared to prior exam of 05-26. There are multiple axial images at 5 mm intervals throughout the brain. No contrast given. The ventricles and sulci are within nor mal limits. There is no mass or mass effect seen. There is no intracr anial hemorrhage. There is no evidence of acute infarction. No pare nchymal abnormalities are seen. IMPRESSION: Normal noncontrast CT of the head. Narrative Performed At PORTABLE CHEST X-RAY AND CT HEAD: CHEST: HISTORY: Shortness of breath. The cardiac silhouette and pulmonary va scularity are within normal limits. There are no infiltrates or masses seen . No evidence of pneumothorax. Procedure Note Donaldo Aleman MD - 08/10/2010 2:32 PM FURNACE CARETAKER PORTABLE CHEST X-RAY AND CT HEAD: CHEST: HISTORY: Shortness of breath. The cardiac silhouette and pulmonary vascularity are within normal limits. There are no infiltrates or masses seen. No evidence of pneumothorax. IMPRESSION: Normal chest. CT HEAD: HISTORY: Headache. Exam is compared to prior exam of 05-26-10. There are multiple axial images at 5 mm intervals throughout the brain. No contrast given. The ventricles and sulci are within normal limits. There is no mass or mass effect seen. There is no intracranial hemorrhage. There is no evidence of acute infarction. No parenchymal abnormalities are seen. IMPRESSION: Normal noncontrast CT of the head. * ACETAMINOPHEN LEVEL (08/09/2010 7:00 PM FURNACE CARETAKER) ACETAMINOPHEN 0.0 (L) 10 - 30 ug/ml [facility] Comment: [facility] 08/10/10 0325: REBA LUA ACTMN previously reported as: < 10.0 L ug/ml Edited by: Antelmo Orourke Reason: [facility] ACCT#[id number], ,,,, Specimen Blood specimen (specimen) Performing Organization Address [facility] one [facility] LABORATORY SERVICES CLIA# [id number] CLEMENTE RIOJAS [address] CLIA# [id number] ALYSA REBAMilly S [address] REBA LAB [address] [place] [address] * SALICYLATE LEVEL (08/09/2010 7:00 PM FURNACE CARETAKER) SALICYLATE 8.5Comment: JUANPABLOJaredNupurGERACLEMENTE 2.8 - 20 mg/dl [facility] ACCT#[id number], ,,,, CENTER [place] LAB Specimen Blood specimen (specimen) Performing Organization Address [facility] LABORATORY SERVICES CLIA# [id number] CLEMENTE RIOJAS [address] - [facility] REAB [address] [place] [address] [place] CLIA# [id number] ALYSA REBAMilly S [address] RE[facility] [address] [place] [address] * D-DIMER (08/09/2010 7:00 PM FURNACE CARETAKER) D-DIMER QUANT 653.0 (H) 0 - 400 ng/mL [facility] Comment: [facility] 90% of patients testing below [facility] 400 ng/ml have proven negative for Thromboembolic Events. EUGENENupurCLEMENTE BOSS ACCT#[id number], ,,,, Specimen Blood specimen (specimen) Performing Organization Address [facility] Ph one Number [facility] CLIA# [id number] CLEMENTE RIOJAS [address] [place] CLIA# [id number] ALYSA Milly BRITTON [address] REBA LAB [address] [facility] * PROTIME-INR (08/09/2010 7:00 PM FURNACE CARETAKER) Pathologist [facility] PROTIME 11.3 9.9 - 11.7 Sec [facility] ALYSA BRITTON LAB INR 1.05 (L)Comment: 2.0 - 3.0 [facility] ACCT#[id number], ,,,, REBA LAB Specimen Blood specimen (specimen) Performing Organization Address City/State/[facility] Cent[facility] Ph one Number [facility] CLIA# [id number] CLEMENTE RIOJAS [address] - ALYSA BRITTON [address] [place] [address] CLIA# [id number] ALYSA BRITTON Milly Aguilar [address] RE[facility] [address] [place] [address] * COMPREHENSIVE METABOLIC PANEL (08/09/2010 7:00 PM FURNACE CARETAKER) Pathologist [facility] GLUCOSE 96 70 - 100 mg/dl [facility] ALYSA BRITTON LAB BUN 17.0 7 - 20 mg/dl [facility] ALYSA BRITTON LAB CREATININE 0.95 0.6 - 1.0 mg/dl [facility] ALYSA BRITTON LAB BUN/CREAT RATIO 17.9 10 - 20 [facility] ALYSA BRITTON LAB GFR 70 >60 ml/min [facility] ALYSA BRITTON LAB SODIUM 133 (L) 135 - 145 mmol/L [facility] ALYSA BRITTON LAB POTASSIUM 3.7 3.3 - 4.8 mmol/L [facility] ALYSA BRITTON LAB CHLORIDE 104 98 - 107 mmol/L [facility] ALYSA BRITTON LAB CO2 24.3 22 - 31 mmol/L [facility] ALYSA BRITTON LAB ANION GAP 8 4 - 20 [facility] ALYSA BRITTON LAB CALCIUM 7.9 (L) 8.5 - 10.1 mg/dl [facility] ALYSA BRITTON LAB ALBUMIN 3.6 3.4 - 5.0 g/dl [facility] ALYSA BRITTON LAB TOTAL PROTEIN 7.3 6.4 - 8.2 g/dl [facility] ALYSA BRITTON LAB GLOBULIN (CALC) 3.7 [facility] ALYSA BRITTON LAB ALBUMIN/GLOBULI 1.0 [facility] ALYSA BRITTON LAB BILIRUBIN TOTAL 0.2 <1.1 mg/dl [facility] ALYSA BRITTON LAB ALKALINE 155 (H) 50 - 136 IU/L [facility] ALYSA BRITTON LAB AST 12 10 - 40 IU/L [facility] ALYSA BRITTON LAB ALT 40Comment: [facility]ITAL[facility]aredCLE[facility] 25 - 70 IU/L [facility] ACCT#[id number], ,,,, CENTER ALYSA BRITTON LAB Specimen Blood specimen (specimen) Performing Organization Address City/State/Zipcode Ph one Number [facility] CLIA# [id number] CLEMENTE RIOJAS [address] - ALYSA REBA [address] [facility] ALYSA CLIA# [id number] Milly RIOJAS S [address] RE[facility] [address] [place] [address] * CBC WITH DIFFERENTIAL (08/09/2010 7:00 PM FURNACE CARETAKER) WBC 11.47 (H) 3.0 - 10.4 x10E3 [facility] ALYSA BRITTON LAB RBC 4.84 3.77 - 4.97 x10E6 [facility] ALYSA BRITTON LAB HEMOGLOBIN 15.2 (H) 11.9 - 15.0 g/dL [facility] ALYSA BRITTON LAB HEMATOCRIT 45.3 (H) 34.4 - 43.6 % [facility] ALYSA BRITTON LAB MCV 93.7 79 - 100 fL [facility] ALYSA BRITTON LAB MCH 31.5 28 - 34 pg [facility] ALYSA BRITTON LAB MCHC 33.6 32 - 35 g/dL [facility] ALYSA BRITTON LAB RDW 13.2 11.5 - 15.1 % [facility] ALYSA BRITTON LAB PLATELETS 197 148 - 408 x10E3 [facility] ALYSA BRITTON LAB MPV 8.2 7.4 - 10.6 [facility] ALYSA BRITTON LAB NEUTROPHILS 66.3 43 - 73 % [facility] ALYSA BRITTON LAB LYMPHOCYTES 26.1 19 - 47 % [facility] ALYSA BRITTON LAB MONOCYTES 4.9 3 - 9 % [facility] ALYSA BRITTON LAB EOSINOPHILS 2.2 0 - 6 % [facility] ALYSA BRITTON LAB BASOPHILS 0.5 0 - 1.2 % [facility] ALYSA BRITTON LAB NEUTROPHIL 7.60 1.3 - 7.6 x10E3 [facility] ALYSA REBA LAB LYMPHOCYTE 3.00 0.6 - 4.9 x10E3 [facility] ALYSA BRITTON LAB MONOCYTE 0.56 0.1 - 0.9 x10E3 [facility] ALYSA BRITTON LAB EOSINOPHIL 0.25 (H) 0.0 - 0.2 x10E3 [facility] ALYSA BRITTON LAB BASOPHILS 0.06Comment: EUGENECLEMENTE BOSS 0 - 0.[address] [facility] ACCT#[id number], ,,,, CENTER ALYSA BRITTON LAB Specimen Blood specimen (specimen) Performing Organization Address City/[facility] Ph one Number [facility] CLIA# [id number] CLEMENTE RIOJAS [address] - ALYSA BRITTON [address] [place] [address] [place] CLIA# [id number] Milly RIOJAS S [address] REBA [address] [place] [address] * POC GLUCOSE (08/09/2010 6:56 PM FURNACE CARETAKER) [facility] POC GLUCOSE 96Comment: [facility] HospitalJim, 70 - 110 mg/dl [facility], Point of Care Site,,,, CENTER ALYSA BRITTON LAB POC GLUCOSE 96 70 - 110 mg/dl [facility] ALYSA BRITTON LAB Specimen Performing Organization Address City/[facility] Ph one Judie [facility] CLIA# [id number] CLEMENTE RIOJAS [address] - ALYSA BRITTON [address] [place] [address] [place] CLIA# [id number] Milly RIOJAS S [address] documented in this encounter Visit Diagnoses Diagnosis Orthostatic hypotension Cough Type II or unspecified type diabetes me llitus without mention of complication, not stated as uncontrolled documented in this encounter Administered Medications Action Date Dose Rate Site Medication Order MAR Action 08/09/2010 10:42 PM FURNACE CARETAKER 20 mg famotidine (PEPCID) tablet 20 mg Given 20 mg, Oral, TWO TIMES DAILY, First dos e on Sun08/09/10 at 2200, Until Discontinued, Routine 08/09/2010 10:52 PM FURNACE CARETAKER 60 Units Abdomen, Right Lower Quadrant insulin glargine (LANTUS) 100 unit/mL Given injection 60 Units 60 Units, subCUT, DAILY, First dose on Sun08/09/10 at 2200, Until Discontinued, Routine, Previous Med: insulin glargine (LANTUS) 100 unit/mL subCUT pen - Orig Sig - Inject 60 Units by subcutaneous injection. As directed, 08/09/2010 8:05 PM FURNACE CARETAKER 30 mg Hand, Ri ght ketorolac (TORADOL) injection 30 mg Given 30 mg, IV, ONE TIME ONLY, 1 dose, Sun08/09/10 at 2015, Routine 08/09/2010 7:03 PM FURNACE CARETAKER 25 mg meclizine (ANTIVERT) tablet 25 mg Given 25 mg, Oral, ONE TIME ONLY, 1 dose, Sun08/09/10 at 1900, Stat 08/09/2010 10:42 PM FURNACE CARETAKER 300 mg OXcarbazepine (TRILEPTAL) tablet 300 mg Given 300 mg, Oral, TWO TIMES DAILY, First dose on Sun08/09/10 at 2200, Until Discontinued, Routine, Previous Med: OXcarbazepine (TRILEPTAL) 150 mg Oral tablet - Orig Sig - Take 300 mg by mout h 2 times daily. , 08/09/2010 7:05 PM FURNACE CARETAKER 25 mg Buttock, Right promethazine (PHENERGAN) injection 25 mg Given 25 mg, IM, ONE TIME ONLY, 1 dose, Sun08/09/10 at 1900, Stat 08/09/2010 10:42 PM FURNACE CARETAKER 200 mL/hr 200 mL/hr sodium chloride 0.9 % infusion New Bag IV, at 200 mL/hr, CONTINUOUS, Starting Sun08/09/10 at 2000, Until Sun08/10/10 at 0703, Stat 200 mL/hr 200 mL/hr Hand, Right Restarted 08/09/2010 8:38 PM FURNACE CARETAKER 200 mL/hr Hand, Right Given 08/09/2010 7:54 PM FURNACE CARETAKER 08/10/2010 3:45 AM FURNACE CARETAKER 200 mL/hr 200 mL/hr sodium chloride 0.9 % infusion New Bag IV, at 200 mL/hr, CONTINUOUS, Starting Sun08/09/10 at 2130, Until Sun08/10/10 at 1334, Routine SODIUM CHLORIDE 0.9 % IV 1 dose, Starting Sun08/09/10 at 1941, Until Sun08/09/10 at 1954, Pearl OMNICELL: Cabinet Override, 08/09/2010 7:56 PM FURNACE CARETAKER 10 mL Hand, Ri ght SODIUM CHLORIDE 0.9 % SYRINGE Given 1 dose, Starting Sun08/09/10 at 1941, Until Sun08/09/10 at 1956, Ryanne SHABAZZICELL: Cabinet Override, 08/09/2010 8:00 PM FURNACE CARETAKER 500 mL 1000 mL/hr Hand, Ri ght sodium chloride 0.9% bolus solution 500 Given mL 500 mL, IV, ONE TIME ONLY, 1 dose, Sun08/09/10 at 2015, at 1,000 mL/hr, Administer over 30 Minutes, Stat 08/09/2010 10:42 PM FURNACE CARETAKER 100 mg topiramate (TOPAMAX) tablet 100 mg Given 100 mg, Oral, TWO TIMES DAILY, First dose on Sun08/09/10 at 2200, Until Discontinued, Routine, Previous Med: topiramate (TOPAMAX) 100 mg Oral tablet - Orig Sig - Take 1 Tab by mouth 2 time s daily. , 08/09/2010 10:42 PM FURNACE CARETAKER 50 mg traMADol (ULTRAM) tablet 50 mg Given 50 mg, Oral, EVERY 12 HOURS (BlD), Firs t dose on Sun08/09/10 at 2200, Until Discontinued, Routine, Previous Med: traMADol (ULTRAM) 50 mg Oral tablet - Orig Sig - Take 50 mg by mouth every 12 hours. , 08/09/2010 10:42 PM FURNACE CARETAKER 5 mg warfarin (COUMADIN) tablet 5 mg Given 5 mg, Oral, DAILY LATE, First dose on Sun08/09/10 at 2215, Until Discontinued, Routine, Previous Med: warfarin (COUMADIN) 5 mg Oral tablet - Orig Sig - Take 1 Tab by mouth daily. , 08/09/2010 10:52 PM FURNACE CARETAKER 80 mg ziprasidone (GEODON) capsule 80 mg Given 80 mg, Oral, TWO TIMES DAILY WITH MEALS , First dose on Sun08/09/10 at 2245, Until Discontinued, Routine documented in this encounter
--- OUTSIDE RECORDS SUMMARY | 2019-10-21 18:27 | XMS REPORT | Encounter Summary ---
Author Author [facility] Organization [facility] Address Unknown Phone Unavailable Care Team Providers Care Wire Mesh Filter Fabricator Name Role Phone Satinder Robby Мария KILLIAN Unavailable Phong Stephens MD PCP Unavailable Reason for Referral * Eval and Treat (Routine) Referred By Contact Referred To Contact Status Reason Specialty Diagnoses / Procedures Phong Stephens MD NO ADDRESS ON FILE Misha Liliane AdelsoDO [address] [place] [address] Closed Other Surgery / Diagnoses General Surgery Unspecified hemorrhoids with other complication Reason for Visit * Reason Comments Follow Up 08/03/[address] [facility], (valium problem) reaction Headache x 3 weeks. daily out of dyan n meds Medication Refill pain med Hemorrhoids x 2 weeks, painfull, this p ast week have been bleeding. Encounter Details Care Team Description Date Type Department Phong Stephens MD NO ADDRESS ON FILE Bipolar disorder, unspecified; Unspecified hemorrhoids with other complication; Head ache 07/22/2010 Office Visit [facility] [address] [address] Social History Date Tobacco Use [...] Signs Reading Time Taken Comments Vital Sign 90/56 07/22/2010 2:38 PM ANCIENT ART CURATOR Blood Pressure 80 07/22/2010 2:38 PM ANCIENT ART CURATOR Pulse - - Temperature - - Respiratory Rate - - Oxygen Saturation - - Inhaled Oxygen Concentration 122 kg (269 lb) 07/22/2010 2:38 PM ANCIENT ART CURATOR Weight - - Height 49.2 07/06/2010 10:50 PM ANCIENT ART CURATOR Body Mass Index documented in this encounter Progress Notes * Phong Stephens MD - 07/22/2010 8:28 PM ANCIENT ART CURATOR Subjective: Ayden Odom is a 40 y.o. [...] prior to encounter Medication Sig Dispense Refill diclofenac sodium (VOLTAREN) 75 mg Oral TbEC Take 1 Tab by mouth 2 times cathleen ly. 60 Tab 11 warfarin (COUMADIN) 5 mg Oral tablet Take 1 Tab by mouth daily. 30 Tab prn potassium chloride SR (K-DUR) 10 mEq Oral tablet Take 1 Tab by mouth 2 times daily. 60 Tab 11 furosemide (LASIX) 40 mg Oral tablet Take 1 Tab by mouth 2 times daily. 1 ta b Bid 60 Tab 11 gabapentin (NEURONTIN) 600 mg Oral tablet Take 1 Tab by mouth 3 times daily. 120 Tab 11 albuterol-ipratropium (COMBIVENT) 103-18 mcg/Actuation Inhalation Aero Take 2 Puffs by inhalation every 6 hours. 1 Inhaler 5 levalbuterol HFA (XOPENEX HFA) 45 mcg/Actuation Inhalation HFAA Take 2 Puffs by inhalation every 6 hours. 1 Inhaler 5 insulin glargine (LANTUS) 100 unit/mL subCUT pen Inject by subcutaneous inj ection. As directed 1 Package 11 Insulin [place], Disposable, (BD INSULIN PEN NEEDLE UF SHORT) 31 X 5/16 " [place] [facility] [place]; Combo Route) route. 1 Package 11 promethazine (PHENERGAN) 25 mg Oral tablet Take 1 Tab by mouth every 6 hours as needed for Nausea. 20 Tab 0 [...] meals , at bedtime, and as needed DISCONTD: diazepam (VALIUM) 5 mg Oral tablet Take 1 Tab by mouth every 8 fidelia rs as needed for Anxiety. 1 Tab 1 benzonatate (TESSALON) 100 mg Oral capsule Take 2 Caps by mouth 3 times celestino y as needed for Cough. 30 Cap 2 DISCONTD: ziprasidone (GEODON) 80 mg Oral Cap Take 80 mg by mouth daily with supper. DISCONTD: acetaminophen (TYLENOL) 500 mg Oral tablet Take 500-1,000 mg by mo uth every 6 hours as needed. HPI: Ms. Odom complains of the following (by systems): Arthritis symptoms: diffuse arthralgias and pain chel upper back and neck with as soc tension CROWELL. worse off valium. psyche has increase riserdal and geodon. Depression like symptoms: depressed mood, difficulty concentrating, fatigue, hyp ersomnia, impaired memory and sxs stable to better recently. Hypertension related symtoms/issues: taking medications as instructed, no side effects of medications, no chest pain on exertion, no dyspnea on exertion, no ed darnell recent hosp with valium side effects / overdose. is off valium now. also no na rcotic pain meds now. Review of Systems: ROS Has all of the following: Headache Dizziness/ poor balance Shortness of breath Bowel changes: persistent increased hemorrhoid pain and bleeding not responsive to conservative rx. Bladder changes Pain in muscle or joints Exam/Objective: Normal Exam for Routine Visits: \\Blood pressure 90/56, pulse 80, weight 269 lb ( 122.018 kg). General appearance: chronic ill / obese/ depressed appearing, active, alert, rehabilitation program coordinator perative, social, normally nourished, and in no acute distress Lungs: breath sounds equal, clear to auscultation bilaterally, no retractions, n o stridor, normal respiratory effort Heart: regular rate and rhythm, S1, S2 normal, no murmur, click, rub, gallop, or abnormal sounds. Abdomen: soft, non-tender. Bowel sounds normal. No masses, no organomegaly. Ac tive bowel sounds. Extremities: symmetrical non edematous. Neck tender upper back and neck. Assessment and Plan: ASSESSMENT: Encounter Diagnoses Name Primary? Bipolar disorder, unspecified Unspecified hemorrhoids with other complication Head ache PLAN: Orders Placed This Encounter Ketorolac 30 mg/ml injection * liliane pelayo Acetaminophen (tylenol) 500 mg oral tablet Ketorolac (toradol) 30 mg/ml (1 ml) injection soln no valium and no narcotic pain meds. Also no ultram 2nd to celesa rx. Friends and support people are with her today Appropriate medications prescribed (see detailed AVS). Appropriate patient instructions provided (see detailed AVS). Follow-up as I have indicated. Medications and options explained to include common side effects. Understanding of medications, course, diagnosis, and expectations were expressed by patient/g uardian. ENT ART CURATOR documented in this encounter Plan of Treatment Order Schedule Name Type Priority Associated Diag noses Ordered: 07/22/2010 AMB REFERRAL TO GENERAL Outpatient Routine Unspec ified hemorrhoids SURGERY Referral with other complica tion documented as of this encounter Visit Diagnoses Diagnosis Bipolar disorder, unspecified Unspecified hemorrhoids with other comp lication Head ache Headache documented in this encounter
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
--- OUTSIDE RECORDS SUMMARY | 2019-10-21 18:27 | XMS REPORT | Encounter Summary ---
Author Author [facility] Organization [facility] Address Unknown Phone Unavailable Care Team Providers Care Clinical Radiologist Name Role Phone Robby Rajan Мария OPHTHALMIC TECHNICIAN Unavailable Phong Stephens MD PCP Unavailable Reason for Visit * Reason Comments Constipation pt. called c/o post op cons tipation. Pt. stated she was taking stool softners and mineral oil. Pt. told to take a dose of Milk of Mag. and if no results take a second dose. Continu e taking Mineral oil and Stool softners. Call our office if M.O.M. do esn't help. Encounter Details Care Team Description Date Type Department Bhakti Carballo Constipation (pt. called c/o post op con stipation. Pt. stated she was taking stool softners and mineral oil. Pt. told to take a dose of Milk of Mag. and if no results take a second dose. Continue taking Mineral oil and Stool softners. Call our office if M.O.M. doesn't help.) 08/08/2010 Telephone [facility] [address] [address] Social History Date Tobacco Use [...]
--- OUTSIDE RECORDS SUMMARY | 2019-10-21 18:27 | XMS REPORT | Encounter Summary ---
Author Author [facility] Organization [facility] Address Unknown Phone Unavailable Care Team Providers Care Gas Regulator Repairer Name Role Phone Robby Rajan Мария KILLIAN Unavailable Phong Stephens MD PCP Unavailable Reason for Visit * Reason Comments Hemorrhoids * Eval and Treat (Routine) Referred By Contact Referred To Contact Status Reason Specialty Diagnoses / Procedures Phong Stephens MD NO ADDRESS ON FILE DomínguezMukesh AdelsoCOX BRANSON [address] [place] [address] Closed Other Surgery / Diagnoses General Surgery Unspecified hemorrhoids with other complication Encounter Details Care Team Description Date Type Department ManzanolaMukesh Adelso, [address] [place] [address] External hemorrhoids with other complica tion (Primary Dx) 07/26/2010 Office Visit [address] [address] Social History Date Tobacco Use [...] Signs Reading Time Taken Comments Vital Sign 104/50 07/26/2010 3:31 PM METAL CONTROL WORKER Blood Pressure 76 07/26/2010 3:31 PM METAL CONTROL WORKER Pulse 36.4 C (97.6 F) 07/26/2010 3:31 PM METAL CONTROL WORKER Temperature - - Respiratory Rate - - Oxygen Saturation - - Inhaled Oxygen Concentration - - Weight - - Height - - Body Mass Index documented in this encounter Progress Notes * Mukesh Domínguez, - 07/26/2010 9:55 AM METAL CONTROL WORKER Ayden Odom is a 40 y.o. female CC hemorrhoids pain and bleeding several months On coumadin Past Medical History Diagnosis [...] performed by MUKESH DOMÍNGUEZ at [facility] OR Pt denies relevant surgical history [...] mouth 2 times daily with m robbi. acetaminophen (TYLENOL) 500 mg Oral tablet Take 1-2 Tabs by mouth every 6 ho urs as needed. 100 Tab 3 diclofenac sodium [...] ection. As directed 1 Package 11 Insulin [place], Disposable, (BD INSULIN PEN NEEDLE UF SHORT) 31 X 5 " [place] [facility] [place]Non-Drug; Combo Route) route. 1 Package 11 benzonatate [...] L/min by inhalation daily at [facility]. ACCU-CHEK ACTIVE CARE Misc Kit by See [...] the hospital encounter of 07/22/10 (from the [facility] 336 hour(s)) CBC WITH DIFFERENTIAL Collection Time [...] and is willing to proceed with surgery. L CONTROL WORKER documented in this encounter Plan of Treatment Not on filedocumented as of this encounter Visit Diagnoses Diagnosis External hemorrhoids with other complic ation - Primary documented in this encounter
--- OUTSIDE RECORDS SUMMARY | 2019-10-21 18:27 | XMS REPORT | Encounter Summary ---
Author Author [facility] Organization [facility] Address Unknown Phone Unavailable Care Team Providers Care Coutierier Name Role Phone Robby Rajan CONSTANTIN Unavailable Phong Stephens MD PCP Unavailable Encounter Details Care Team Description Date Type Department Phong Stephens MD NO ADDRESS ON FILE [facility], Lab Schedule 07/22/2010 Hospital [facility] General Encounter Laboratory Services [address] [address] Social History Date Tobacco Use [...] 0 Oral tablet mouth 2 times daily. 07/22/2010 12/01/2010 acetaminophen (TYLENOL) Take 1-2 Tabs [...] not stated as uncontrolled 05/04/2010 05/18/2011 Insulin [place], by 1 Package 11 Disposable, (BD INSULIN [...] mg by 0 Oral tablet mouth daily disability advocate. documented as of this encounter Plan of Treatment Not on filedocumented as of this encounter Procedures Comments Procedure Name Priority Date/Time Associated Diag nosis CBC WITH DIFFERENTIAL Routine 07/22/2010 Mental s tatus change 9:00 AM FORMULATION TECHNICIAN COMPREHENSIVE METABOLIC Routine 07/22/2010 Altere d mental status PANEL 9:00 AM FORMULATION TECHNICIAN Hypokalemia Mental status change Narcolepsy and cataplexy documented in this encounter Results * COMPREHENSIVE METABOLIC PANEL (07/22/2010 9:00 AM FORMULATION TECHNICIAN) GLUCOSE 78 70 - 100 mg/dl [facility] BUN 21.0 (H) 7 - 20 mg/dl [facility] CREATININE 0.98 0.6 - 1.0 mg/dl [facility] BUN/CREAT RATIO 21.4 (H) 10 - 20 [facility] GFR 68 >60 ml/min [facility] SODIUM 144 135 - 145 mmol/L [facility] POTASSIUM 3.7 3.3 - 4.8 mmol/L [facility] CHLORIDE 107 98 - 107 mmol/L [facility] CO2 26.3 22 - 31 mmol/L [facility] ANION GAP 14 4 - 20 [facility] CALCIUM 8.8 8.5 - 10.1 mg/dl [facility] ALBUMIN 3.7 3.4 - 5.0 g/dl [facility] TOTAL PROTEIN 7.1 6.4 - 8.2 g/dl [facility] GLOBULIN (CALC) 3.4 [facility] ALBUMIN/GLOBULI 1.1 [facility] BILIRUBIN TOTAL 0.3 <1.1 mg/dl [facility] ALKALINE 135 50 - 136 IU/L [facility] PHOSPHATASE [facility] AST 17 10 - 40 IU/L [facility] ALT 52Comment: [facility] 25 - 70 IU/L [facility] ACCT#[id number], ,,,, [facility]ENTER [facility] Specimen Blood specimen (specimen) Performing Organization Address City/State/Zipcode Ph one Number [facility] CLIA# [id number] CLEMENTE RIOJAS [address] - [place] [facility] [address] [place] [place] [address] CLIA# [id number] Milly RIOJAS [id number] [facility] [address] * CBC WITH DIFFERENTIAL (07/22/2010 9:00 AM FORMULATION TECHNICIAN) WBC 7.81 3.0 - 10.4 x10E3 [facility] RBC 5.02 (H) 3.77 - 4.97 x10E6 [facility] HEMOGLOBIN 15.9 (H) 11.9 - 15.0 g/dL [facility] HEMATOCRIT 48.2 (H) 34.4 - 43.6 % [facility] MCV 96.0 79 - 100 fL [facility] MCH 31.6 28 - 34 pg [facility] MCHC 32.9 32 - 35 g/dL [facility] RDW 13.3 11.5 - 15.1 % [facility] PLATELETS 171 148 - 408 x10E3 [facility] MPV 7.9 7.4 - 10.6 fL [facility] NEUTROPHILS 53.2 43 - 73 % [facility] LYMPHOCYTES 38.1 19 - 47 % [facility] MONOCYTES 4.7 3 - 9 % [facility] EOSINOPHILS 2.9 0 - 6 % [facility] BASOPHILS 1.2 0 - 1.2 % [facility] NEUTROPHIL 4.15 1.3 - 7.6 x10E3 [facility] LYMPHOCYTE 2.98 0.6 - 4.9 x10E3 [facility] MONOCYTE 0.36 0.1 - 0.9 x10E3 [facility] EOSINOPHIL 0.23 (H) 0.0 - 0.2 x10E3 [facility] BASOPHILS 0.09Comment: [facility]OSS 0 - 0.1 x10E3 [facility] ACCT#[id number], ,,,, [facility] Specimen Blood specimen (specimen) Performing Organization Address City/State/Zipcode Ph one Number [facility] CLIA# [id number] CLEMENTE RIOJAS [address] - [place] BR[facility] [address] [place] [address] CLIA# [id number] Milly RIOJAS [address] [facility] [address] [facility] documented in this encounter Visit Diagnoses Diagnosis Mental status change Altered mental status Altered mental status Hypokalemia Hypopotassemia Narcolepsy and cataplexy Narcolepsy with cataplexy documented in this encounter
--- OUTSIDE RECORDS SUMMARY | 2019-10-21 18:28 | XMS REPORT | Encounter Summary ---
Author Author [facility] Organization [facility] Address Unknown Phone Unavailable Care Team Providers Care Insect Control Inspector Name Role Phone Robby Rajan APRN Unavailable Phong Stephens MD PCP Unavailable Reason for Visit * Reason Comments Medication Refill Encounter Details Care Team Description Date Type Department Jessica Christian 06/06/2010 Refill [facility] [place] Prim[facility] y Care [address] [address] Social History Date Tobacco Use Types Packs/Day Years Used Current Every Day Smoker Cigarettes 1 27 Comments: STARTED SMOKING AGE 11 Drinks/Week oz/Week Comments Alcohol Use "very rarely" No Sex Assigned at Date Recorded Not on file Industry Job Start Date Occupation Not on file Not on file Not on file Travel End Travel History Travel Start No recent travel history available. documented as of this encounter Miscellaneous Notes * Telephone Encounter - Jessica Christian - 06/06/2010 2:33 PM BUSINESS UNIT MANAGER Per Dr Stephens may have Ultram 50mg #30. NESS UNIT MANAGER documented in this encounter Plan of Treatment Not on filedocumented as of this encounter Visit Diagnoses Not on filedocumented in this encounter
--- OUTSIDE RECORDS SUMMARY | 2019-10-21 18:28 | XMS REPORT | Encounter Summary ---
Author Author [facility] Organization [facility] Address Unknown Phone Unavailable Care Team Providers Care Sales Assistant Displays Name Role Phone Robby Rajan Мария KILLIAN Unavailable Phong Stephens MD PCP Unavailable Reason for Visit * Reason Comments Wants Appointment sp catheter change w/ Dr Sheryl hrota Encounter Details Care Team Description Date Type Department Homar Jean MD [address] [place] [address] Wants Appointment (sp catheter change w/ Dr Jean) 06/24/2010 Telephone [facility] [place] [address] [place] [phone] Social History Date Tobacco Use Types [...] * Telephone Encounter - Izzy Stewart - 06/24/2010 3:54 PM SENIOR IT ASSISTANT SP catheter change appt w/ Dr jean on 07/04/10 @ 11:30am @ [facility], 2 FS. Florin/sscottrchas OR IT ASSISTANT documented in this encounter Plan of Treatment Not on filedocumented as of this encounter Visit Diagnoses Not on filedocumented in this encounter
--- OUTSIDE RECORDS SUMMARY | 2019-10-21 18:28 | XMS REPORT | Encounter Summary ---
Author Author [facility] Organization [facility] Address Unknown Phone Unavailable Care Team Providers Care Textile Screen Printer Name Role Phone Robby Rajan Мария GRID MOLDER Unavailable Phong Stephens MD PCP Unavailable Reason for Visit * Reason Comments Migraine Encounter Details Care Team Description Date Type Department Becka Watters, GRID MOLDER [address] [place] [address] Allergic rhinitis; Migraine; Nausea alone 06/05/2010 Office Visit [facility] [address] [place] [address] Social History Date Tobacco Use [...] Comments Vital Sign - - Blood Pressure 95 06/05/2010 4:53 PM RAFTER CUTTING MACHINE OPERATOR Pulse 37.7 C (99.8 F) 06/05/2010 4:53 PM RAFTER CUTTING MACHINE OPERATOR Temperature - - Respiratory Rate 94% 06/05/2010 4:53 PM RAFTER CUTTING MACHINE OPERATOR Oxygen Saturation - - Inhaled Oxygen Concentration - - Weight - - Height - - Body Mass Index documented in this encounter Progress Notes * Becka Watters ARNP - 06/10/2010 7:16 PM RAFTER CUTTING MACHINE OPERATOR HISTORY OF PRESENT ILLNESS Ayden Odom, a 40 y.o. female. Headache This is a new problem. The current episode started 6 to 12 hours ago. The proble m occurs constantly. The problem has been gradually worsening. The headache is a ssociated with bright light, emotional stress and activity. The pain is located in the frontal region. The quality of the pain is described as sharp. The pain i s at a severity of 8/10. The pain is moderate. The pain does not radiate. Associ ated symptoms include nausea. She has tried NSAIDs for the symptoms. The treatme nt provided mild relief. REVIEW OF SYSTEMS Review of Systems Gastrointestinal: Positive for nausea. Neurological: Positive for headaches. PHYSICAL EXAM Pulse 95 | Temp 99.8 F (37.7 C) | SpO2 94% Physical Exam Nursing note and vitals reviewed. Constitutional: She is oriented to person, place, and time. No distress. HENT: Head: Normocephalic and atraumatic. Right Ear: Tympanic membrane normal. Left Ear: Tympanic membrane normal. Nose: Mouth/Throat: Oropharynx is clear and moist. Clear nasal drainage Eyes: Conjunctivae are normal. Cardiovascular: Regular rhythm. Pulmonary/Chest: Effort normal and breath sounds normal. Lymphadenopathy: She has no cervical adenopathy. Neurological: She is alert and oriented to person, place, and time. ASSESSMENT and PLAN: Encounter Diagnoses 1. Allergic rhinitis (477.9AD) methylPREDNISolone Acetate (DEPO-MEDROL) 80 mg/m L Injection Susp, METHYLPREDNISOLONE ACETATE 80 MG/ML INJECTION, dexamethasone ( DECADRON) 4 mg/mL Injection Soln, DEXAMETHASONE SODIUM PHOSPHATE 4 MG/ML INJECTI ON 2. Migraine (346.90A) nalbuphine (NUBAIN) 10 mg/mL Injection Soln, NALBUPHINE 1 0 MG/ML INJECTION 3. Nausea alone (787.02) promethazine (PHENERGAN) 50 mg/mL Injection Soln, PROM ETHAZINE 50 MG/ML INJECTION ER CUTTING MACHINE OPERATOR documented in this encounter Plan of Treatment Not on filedocumented as of this encounter Visit Diagnoses Diagnosis Allergic rhinitis Allergic rhinitis, cause unspecified Migraine Migraine, unspecified, without mention of intractable migraine without mention of status migrainosus Nausea alone documented in this encounter
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
--- OUTSIDE RECORDS SUMMARY | 2019-10-21 18:28 | XMS REPORT | Encounter Summary ---
Author Author [facility] Organization [facility] Address Unknown Phone Unavailable Care Team Providers Care Carbonizer Tester Name Role Phone Robby Rajan Мария KILLIAN Unavailable Phong Stephens MD PCP Unavailable Reason for Visit * Reason Comments Medication Refill Encounter Details Care Team Description Date Type Department Phong Stephens MD NO ADDRESS ON FILE Fibromyalgia (Primary Dx) 06/13/2010 Refill [facility] Primar Care [address] [address] Social History Date Tobacco Use [...] as of this encounter Visit Diagnoses Diagnosis Fibromyalgia - Primary Mylagia and myositis, unspecified documented in this encounter
--- OUTSIDE RECORDS SUMMARY | 2019-10-21 18:28 | XMS REPORT | Encounter Summary ---
Author Author [facility] Organization [facility] Address Unknown Phone Unavailable Care Team Providers Care Parts Representative Name Role Phone Robby Rajan CONSTANTIN Unavailable Phong Stephens MD PCP Unavailable Encounter Details Care Team Description Date Type Department Phong Stephens MD NO ADDRESS ON FILE [facility], Lab Schedule 06/15/2010 Hospital [facility] General Encounter Laboratory Services [address] [address] Social History Date Tobacco Use [...] 0 Oral tablet mouth 2 times daily. 06/15/2010 08/10/2010 diclofenac sodium Take 1 Tab [...] not stated as uncontrolled 05/04/2010 05/18/2011 Insulin [place], by 1 Package 11 Disposable, (BD INSULIN [...] mg by 0 Oral tablet mouth daily real estate office manager. 04/15/2010 07/22/2010 ziprasidone (GEODON) 80 Take 80 [...] and bedtime documented as of this encounter Plan of Treatment Not on filedocumented as of this encounter Procedures Comments Procedure Name Priority Date/Time Associated Diag nosis PROTIME-INR Routine 06/15/2010 Pulmonary embol ism 8:49 AM DIRECTOR FRAUD HEMOGLOBIN A1C Routine 06/15/2010 DM w/o complica tion type 8:49 AM DIRECTOR FRAUD II BASIC METABOLIC PANEL Routine 06/15/2010 DM w/o c omplication type 8:49 AM DIRECTOR FRAUD II documented in this encounter Results * PROTIME-INR (06/15/2010 8:49 AM DIRECTOR FRAUD) PROTIME 11.4 9.9 - 11.7 Sec [facility] INR 1.05 (L)Comment: 2.0 - 3.0 [facility] ACCT#[id number], ,,,[facility] LAB Specimen Blood specimen (specimen) Performing Organization Address [facility] one [facility] LABORATORY SERVICES CLIA# [id number] [facility] [place]BA [place] [address] CLIA# [id number] Milly RIOJAS S [address] * HEMOGLOBIN A1C (06/15/2010 8:49 AM DIRECTOR FRAUD) HEMOGLOBIN A1C 5.5 0 - 6.0 % [facility] GLUCOSE, MEAN 111Comment: [facility] mg/dl [facility] BLOOD ACCT#[id number], ,,,, [facility] REBA LAB Specimen Blood specimen (specimen) Performing Organization Address [facility] Ph one [facility] LABORATORY SERVICES CLIA# [id number] CLEMENTE RIOJAS [address] CLIA# [id number] Milly RIOJAS S [address] REBA LAB [address] [place] [address] * BASIC METABOLIC PANEL (06/15/2010 8:49 AM DIRECTOR FRAUD) GLUCOSE 100 70 - 100 mg/dl [facility] BUN 20.0 7 - 20 mg/dl [facility] CREATININE 1.00 0.6 - 1.0 mg/dl [facility] BUN/CREAT RATIO 20.0 10 - 20 [facility] GFR 66 >60 ml/min [facility] SODIUM 139 135 - 145 mmol/L [facility] POTASSIUM 3.9 3.3 - 4.8 mmol/L [facility] CHLORIDE 107 98 - 107 mmol/L [facility] CO2 22.6 22 - 31 mmol/L [facility] ANION GAP 13 4 - 20 [facility] CALCIUM 9.1Comment: CLEMENTE ROBISON 8.5 - 10.1 mg/dl [facility] ACCT#[id number], ,,,, CENTER [facility] Specimen Blood specimen (specimen) Performing Organization Address City/State/Zipcode Ph one Number [facility] LABORATORY SERVICES CLIA# [id number] CLEMENTE RIOJAS [address] - ALYSA BRITTON [address] [place] [address] CLIA# [id number] Milly RIOJAS S [address] documented in this encounter Visit Diagnoses Diagnosis Type II or unspecified type diabetes me llitus without mention of complication, not stated as uncontrolled Pulmonary embolism Other pulmonary embolism and infarction documented in this encounter
--- OUTSIDE RECORDS SUMMARY | 2019-10-21 18:28 | XMS REPORT | Encounter Summary ---
Author Author [facility] Organization [facility] Address Unknown Phone Unavailable Care Team Providers Care Dimmer Board Operator Name Role Phone Satinder Robby Мария KILLIAN Unavailable Phong Stephens MD PCP Unavailable Encounter Details Care Team Description Date Type Department Phong Stephens MD NO ADDRESS ON FILE 06/15/2010 Anti-coag visit [facility] Primar Care [address] [address] Social History Date Tobacco Use [...]
--- OUTSIDE RECORDS SUMMARY | 2019-10-21 18:28 | XMS REPORT | Encounter Summary ---
Author Author [facility] Organization [facility] Address Unknown Phone Unavailable Care Team Providers Care Paint Stockman Name Role Phone Robby Rajan Мария KILLIAN Unavailable Phong Stephens MD PCP Unavailable Reason for Visit * Reason Comments Urinary Catheter Problem reports her suprapubic has been leaking for the past couple of days. Hurts around site and hurts in her bladder ar ea. Has an appt on Sunday with Gino. Encounter Details Care Team Description Date Type Department Wyatt German MD [address] [address] 07/02/2010 Emergency [facility] Emergency Department [address] [address] Social History Date Tobacco Use [...] Signs Reading Time Taken Comments Vital Sign 95/59 07/02/2010 8:12 PM TRENCH DIGGER HELPER Blood Pressure 79 07/02/2010 8:10 PM TRENCH DIGGER HELPER Pulse 36.9 C (98.5 F) 07/02/2010 8:10 PM TRENCH DIGGER HELPER Temperature 20 07/02/2010 8:10 PM TRENCH DIGGER HELPER Respiratory Rate 97% 07/02/2010 8:10 PM TRENCH DIGGER HELPER Oxygen Saturation - - Inhaled Oxygen Concentration 124.3 kg (274 lb) 07/02/2010 8:10 PM TRENCH DIGGER HELPER Weight 157.5 cm (5' 2") 07/02/2010 8:10 PM TRENCH DIGGER HELPER Height 50.12 07/02/2010 8:10 PM TRENCH DIGGER HELPER Body Mass Index documented in this encounter [...] 0 Oral tablet mouth 2 times daily. 06/25/2010 07/05/2010 traMADol (ULTRAM) 50 mg Take 2 Tabs 40 Tab 0 Oral tabletIndications: by mouth Shoulder injury every 6 hours as needed for Pain for 10 days. 06/15/2010 08/10/2010 diclofenac sodium Take 1 Tab [...] not stated as uncontrolled 05/04/2010 05/18/2011 Insulin [place], by 1 Package 11 Disposable, (BD INSULIN [...] mg by 0 Oral tablet mouth daily morphologist. 04/15/2010 07/22/2010 ziprasidone (GEODON) 80 Take 80 [...] ED Notes * Ari Stanley Physician - 07/04/2010 10:14 AM TRENCH DIGGER HELPER documented in this encounter Plan of Treatment Not on filedocumented as of this encounter Procedures Comments Procedure Name Priority Date/Time Associated Diag nosis URINALYSIS WITH REFLEX Stat 07/02/2010 CULTURE 8:37 PM TRENCH DIGGER HELPER URINE CULTURE Stat 07/02/2010 8:37 PM TRENCH DIGGER HELPER documented in this encounter Results * URINE CULTURE (07/02/2010 8:37 PM TRENCH DIGGER HELPER) ORGANISM PROTEUS VULGARIS (A) [facility] URINE CULTURE COLONY COUNT: >100,000 (A) [facility] ORGANISM ENTEROCOCCUS SPECIES (A) [facility] URINE CULTURE COLONY COUNT: >100,000 (A) [facility] Specimen Antibiotic Method Susceptibility Organism AMIKACIN DOMENICA MCG/ML <=2: Susceptible Proteus vulgaris AMPICILLIN DOMENICA MCG/ML >=32: Resistant Proteus vulgaris AMPICILLIN/ SULBACTAM DOMENICA MCG/ML 4: Susceptible Proteus vulgaris CEFAZOLIN DOMENICA MCG/ML >=64: Resistant Proteus vulgaris CEFEPIME DOMENICA MCG/ML <=1: Susceptible Proteus vulgaris CEFTAZIDIME DOMENICA MCG/ML <=1: Susceptible Proteus vulgaris CEFTRIAXONE DOMENICA MCG/ML <=1: Susceptible Proteus vulgaris CIPROFLOXACIN DOMENICA MCG/ML <=0.25: Susceptible Proteus vulgaris ERTAPENEM DOMENICA MCG/ML <=0.5: Susceptible Proteus vulgaris GENTAMICIN DOMENICA MCG/ML <=1: Susceptible Proteus vulgaris LEVOFLOXACIN DOMENICA MCG/ML <=0.12: Susceptible Proteus vulgaris NITROFURANTOIN DOMENICA MCG/ML 128: Resistant Proteus vulgaris PIPERACILLIN/ TAZOBACTAM DOMENICA MCG/ML <=4: Susceptible Proteus vulgaris TOBRAMYCIN DOMENICA MCG/ML <=1: Susceptible Proteus vulgaris TRIMETHOPRIM/ SULFAMETHOXAZOLE DOMENICA MCG/ML <=20: Susceptible Proteus vulgaris AMPICILLIN DOMENICA MCG/ML <=2: Susceptible Enterococcus species CIPROFLOXACIN DOMENICA MCG/ML >=8: Resistant Enterococcus species LEVOFLOXACIN DOMENICA MCG/ML >=8: Resistant Enterococcus species NITROFURANTOIN DOMENICA MCG/ML <=16: Susceptible Enterococcus species PENICILLIN DOMENICA MCG/ML 8: Susceptible Enterococcus species TETRACYCLINE DOMENICA MCG/ML >=16: Resistant Enterococcus species VANCOMYCIN DOMENICA MCG/ML 1: Susceptible Enterococcus species Comment: CLEMENTE ROBISON ACCT#[id number], ,,,, Performing Organization Address [facility] Ph one Number [facility] LABORATORY SERVICES CLIA# [id number] CLEMENTE RIOJAS [address] - ALYSA BRITTON [address] [place], [place] [address]IA# [id number] Milly RIOJAS S [address] * URINALYSIS WITH REFLEX CULTURE (07/02/2010 8:37 PM TRENCH DIGGER HELPER) GLUCOSE UA Negative Negative mg/dl [facility] BILIRUBIN UA Negative Negative [facility] KETONES UA Negative Negative mg/dl [facility] SPECIFIC 1.020 [facility] UA SABANA HOYOS [facility] PH UA 8.0 [facility] PROTEIN UA >=300 Negative mg/dl [facility] UROBILINOGEN UA 1.0 0.2 - 1.0 EU/dl [facility] NITRITE UA Positive (H) Negative [facility] BLOOD UA Large Negative [facility] LEUKOCYTE Large (H) Negative [facility] ESTERASE UA SABANA HOYOS [facility] WBC UA 25-50 (H) 0 - 5 /HPF [facility] RBC UA 5-10 (H) 0 - 5 /HPF [facility] BACTERIA UA 3+ (H) Negative /HPF [facility] MUCOUS, URINE Light /LPF [facility] EPITHELIAL 3+ squamous [facility] CELLS, URINE SABANA HOYOS [facility] COMMENT, URINE See Culture Report.Comment: [facility] ACCT#[id number], ,,,, RE[facility] LAB Specimen Urine, clean catch Performing Organization Address City/State/Zipcode Ph one Number [facility] LABORATORY SERVICES CLIA# [id number] CLEMENTE RIOJAS [address] - ALYSA BRITTON [address] [place] [address] CLIA# [id number] Milly RIOJAS [address] documented in this encounter Visit Diagnoses Not on filedocumented in this encounter
--- OUTSIDE RECORDS SUMMARY | 2019-10-21 18:28 | XMS REPORT | Encounter Summary ---
Author Author [facility] Organization [facility] Address Unknown Phone Unavailable Care Team Providers Care Architect Manager Name Role Phone Robby Rajan APRN Unavailable Phong Stephens MD PCP Unavailable Reason for Visit * Reason Comments Medication Refill Encounter Details Care Team Description Date Type Department Patt Hauser MD NO ADDRESS ON FILE 06/15/2010 Refill [facility] Primar y Care [address] [address] Social History Date Tobacco Use [...]
--- OUTSIDE RECORDS SUMMARY | 2019-10-21 18:28 | XMS REPORT | Encounter Summary ---
Author Author [facility] Organization [facility] Address Unknown Phone Unavailable Care Team Providers Care Materials Scientist Name Role Phone SatinderRobby Мария KILLIAN Unavailable Phong Stephens MD PCP Unavailable Reason for Visit * Reason Comments Shoulder Pain She fell when she was tryin g to get out of her car at home and injured her right shoulder. Encounter Details Care Team Description Date Type Department Willis Land PA [address] [place], [place] [address] Shoulder injury (Primary Dx) 06/25/2010 Office Visit [facility] [address] [place] [address] Social History Date Tobacco Use [...] Comments Vital Sign - - Blood Pressure 89 06/25/2010 7:54 PM ABA TUTOR Pulse 37.2 C (98.9 F) 06/25/2010 7:54 PM ABA TUTOR Temperature - - Respiratory Rate 97% 06/25/2010 7:54 PM ABA TUTOR Oxygen Saturation - - Inhaled Oxygen Concentration - - Weight - - Height - - Body Mass Index documented in this encounter Progress Notes * Willis Land PA - 07/22/2010 10:44 AM ABA TUTOR Subjective: Ayden Odom is a 40 y.o. right hand-dominant female seen for evaluation a nd treatment of a right shoulder injury. This is evaluated as a personal injury. The injury occurred 1 days ago. Immediate symptoms: immediate pain, delayed pain. Symptoms have been unchanged s lata that time. Prior history of related problems: . 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 Appearance: oriented to person, place, and time and in mild to moderate distress . DEFORMITY: none TENDERNESS: diffuse NEUROLOGICAL EXAM: normal sensation and reflexes VASCULAR EXAM: normal Imaging X-ray: no acute injury Assessment: right shoulder sprain. Plan: 1. I discussed the treatment of this injury with the patient. I fully outlined the anatomy involved. All their questions were answered fully. 2. At this point cast immobilization will not be necessary for treatment of the fracture. 3. The patient was instructed on proper care of the injury and cast/splint. 4. She was encouraged to keep the affected limb elevated and apply cold packs in termittently for the next 24-48 hours. 5. Follow up: See in 7 days for reevaluation if not improved TUTOR documented in this encounter Plan of Treatment Not on filedocumented as of this encounter Results * XR SHOULDER 2+ VW RIGHT (06/25/2010 8:56 PM ABA TUTOR) Specimen Impressions Performed At : No acute bony abnormality is identified involving the right shoulder. Narrative Performed At Diagnosis: SHOULDER INJURY RIGHT SHOULDER: INDICATION: Right shoulder pain. AP internally, AP externally and scapul ar views were obtained and demonstrate mild degenerative change wi thout fracture or subluxation. Moderate subacromial spurring is noted. Procedure Note Macho Barrios MD - 06/27/2010 3:47 PM ABA TUTOR Diagnosis: SHOULDER INJURY RIGHT SHOULDER: INDICATION: Right shoulder pain. AP internally, AP externally and scapular views were obtained and demonstrate mild degenerative change without fracture or subluxation. Moderate subacromial spurring is noted. IMPRESSION: No acute bony abnormality is identified involving the right shoulder. documented in this encounter Visit Diagnoses Diagnosis Shoulder injury - Primary Injury, other and unspecified, shoulder and upper arm documented in this encounter
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
--- OUTSIDE RECORDS SUMMARY | 2019-10-21 18:28 | XMS REPORT | Encounter Summary ---
Author Author [facility] Organization [facility] Address Unknown Phone Unavailable Care Team Providers Care Occupational Therapist'S Assistant Name Role Phone Franco Rajanory Мария KILLIAN Unavailable Phong Stephens MD PCP Unavailable Reason for Visit * Reason Comments Back Pain Encounter Details Care Team Description Date Type Department Brittany Apple Joaquim Back Pain 05/31/2010 Telephone [facility] Primar y Care [address] [address] Social History Date Tobacco [...] * Telephone Encounter - Brittany Apple - 05/31/2010 10:42 AM CUSTOMER EXPERIENCE ANALYST Pt calls stating she twisted her back last night and is having back pain. Per dr Jose Carlos Stephens pt is to rest and apply warm moist paks to affected area 3-4 times per day. OMER EXPERIENCE ANALYST documented in this encounter Plan of Treatment Not on filedocumented as of this encounter Visit Diagnoses Not on filedocumented in this encounter
--- OUTSIDE RECORDS SUMMARY | 2019-10-21 18:28 | XMS REPORT | Encounter Summary ---
Author Author [facility] Organization [facility] Address Unknown Phone Unavailable Care Team Providers Care Engine Dispatcher Name Role Phone Robby Rajna Мария KILLIAN Unavailable Phong Stephens MD PCP Unavailable Reason for Visit * Reason Comments Urinary Catheter Problem pt. accidentally pulled out SP catheter at 1:30 this a.m., went to E.R. at 2:30 and they were unable to re insert catheter. Encounter Details Care Team Description Date Type Department Turner Cabral DO [address] [place] [address] Urinary retention (Primary Dx) 06/07/[address] [address] Social History Date Tobacco Use [...] Comments Vital Sign - - Blood Pressure 88 06/07/2010 8:30 AM HOME OFFICE CLAIMS EXAMINER Pulse 35.8 C (96.5 F) 06/07/2010 8:30 AM HOME OFFICE CLAIMS EXAMINER Temperature - - Respiratory Rate - - Oxygen Saturation - - Inhaled Oxygen Concentration - - Weight - - Height - - Body Mass Index documented in this encounter Progress Notes * Turner Cabral DO - 06/12/2010 3:22 AM HOME OFFICE CLAIMS EXAMINER New cath placed in without difficulty unto suprapubic tract. OK for pt to go shahram e Salazar removed OFFICE CLAIMS EXAMINER documented in this encounter Plan of Treatment Not on filedocumented as of this encounter Visit Diagnoses Diagnosis Urinary retention - Primary Retention of urine, unspecified documented in this encounter
--- OUTSIDE RECORDS SUMMARY | 2019-10-21 18:28 | XMS REPORT | Encounter Summary ---
Author Author [facility] Organization [facility] Address Unknown Phone Unavailable Care Team Providers Care Imaging System Administrator Name Role Phone Robby Rajan POWDERMAN Unavailable Phong Stephens MD PCP Unavailable Encounter Details Care Team Description Date Type Department Phong Stephens MD NO ADDRESS ON FILE Pulmonary embolism (Primary Dx) 06/15/2010 Orders Only [facility] Primar y Care Mobile [address] [place] [address] Social History Date Tobacco Use [...] as of this encounter Results * PROTIME-INR (06/15/2010 8:49 AM CRM CAMPAIGN MANAGER) PROTIME 11.4 9.9 - 11.7 Sec [facility] INR 1.05 (L)Comment: 2.0 - 3.0 [facility] ACCT#[id number], ,,,, [facility] LAB Specimen Blood specimen (specimen) Performing Organization Address City/State/Zipcode Ph one Number [facility] CLIA# [id number] [place], [place] [address] - [place] [address] [facility] CLIA# [id number] Milly RIOJAS [address] documented in this encounter Visit Diagnoses Diagnosis Pulmonary embolism - Primary Other pulmonary embolism and infarction documented in this encounter
--- OUTSIDE RECORDS SUMMARY | 2019-10-21 18:28 | XMS REPORT | Encounter Summary ---
Author Author [facility] Organization [facility] Address Unknown Phone Unavailable Care Team Providers Care Greens Keeper Name Role Phone King Robby Мария KILLIAN Unavailable Phong Stephens MD PCP Unavailable Encounter Details Care Team Description Date Type Department [place] [address] [place], [place] [address] 06/25/2010 [facility] [place] [address] [place] [address] Social History Date Tobacco Use [...] not stated as uncontrolled 05/04/2010 05/18/2011 Insulin [place], by 1 Package 11 Disposable, (BD INSULIN [...] mg by 0 Oral tablet mouth daily pai gow dealer. 04/15/2010 07/22/2010 ziprasidone (GEODON) 80 Take 80 [...] and bedtime documented as of this encounter Miscellaneous Notes * Scanned Form - Aok Scanning, Amb Physician - 06/27/2010 1:29 PM ASSISTANT OCEANOGRAPHER documented in this encounter Plan of Treatment Not on filedocumented as of this encounter Procedures Comments Procedure Name Priority Date/Time Associated Diag nosis XR SHOULDER 2+ VW RIGHT Stat 06/25/2010 Should er injury 8:56 PM ASSISTANT OCEANOGRAPHER documented in this encounter Results * XR SHOULDER 2+ VW RIGHT (06/25/2010 8:56 PM ASSISTANT OCEANOGRAPHER) Specimen Impressions Performed At : No acute bony abnormality is identified involving the right shoulder. Narrative Performed At Diagnosis: SHOULDER INJURY RIGHT SHOULDER: INDICATION: Right shoulder pain. AP internally, AP externally and scapul ar views were obtained and demonstrate mild degenerative change wi thout fracture or subluxation. Moderate subacromial spurring is noted. Procedure Note Macho Barrios MD - 06/27/2010 3:47 PM ASSISTANT OCEANOGRAPHER Diagnosis: SHOULDER INJURY RIGHT SHOULDER: INDICATION: Right shoulder pain. AP internally, AP externally and scapular views were obtained and demonstrate mild degenerative change without fracture or subluxation. Moderate subacromial spurring is noted. IMPRESSION: No acute bony abnormality is identified involving the right shoulder. documented in this encounter Visit Diagnoses Diagnosis Shoulder injury Injury, other and unspecified, shoulder and upper arm documented in this encounter
--- OUTSIDE RECORDS SUMMARY | 2019-10-21 18:28 | XMS REPORT | Encounter Summary ---
Author Author [facility] Organization [facility] Address Unknown Phone Unavailable Care Team Providers Care Mail List Librarian Name Role Phone Robby Rajan CONSTANTIN Unavailable Phong Stephens MD PCP Unavailable Reason for Visit * Reason Comments Follow Up 6 wk Encounter Details Care Team Description Date Type Department Phong Stephens MD NO ADDRESS ON FILE DM w/o complication type II; Chronic pain; Pulmonary embolism; Sleep apnea; Hyperlipidemia 06/15/2010 Office Visit [facility] Primar [address] [address] Social History Date Tobacco Use [...] Reading Time Taken Comments Vital Sign 122/80 06/15/2010 10:24 AM SPA THERAPIST Blood Pressure - - Pulse 37.1 C (98.7 F) 06/15/2010 10:24 AM SPA THERAPIST Temperature - - Respiratory Rate - - Oxygen Saturation - - Inhaled Oxygen Concentration - - Weight - - Height - - Body Mass Index documented in this encounter Progress Notes * Phong Stephens MD - 06/15/2010 7:17 PM SPA THERAPIST Subjective: Ayden Odom is a 40 y.o. female. 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 120 Tab 11 metaxalone (SKELAXIN) 400 mg Oral tablet Take 1 Tab by mouth every 8 hours a s needed for Pain (muscle pain). 20 Tab None traMADol (ULTRAM) 50 mg Oral tablet Take 2 Tabs by mouth every 6 hours as ne eded for Pain. 30 Tab 0 traMADol (ULTRAM) 50 mg Oral tablet Take 2 Tabs by mouth every 6 hours as ne eded for Pain. 6 Tab None albuterol-ipratropium (COMBIVENT) 103-18 mcg/Actuation Inhalation Aero Take 2 Puffs by inhalation every 6 hours. 1 Inhaler 5 levalbuterol HFA (XOPENEX HFA) 45 mcg/Actuation Inhalation HFAA Take 2 Puffs by inhalation every 6 hours. 1 Inhaler 5 insulin glargine (LANTUS) 100 unit/mL subCUT pen Inject by subcutaneous inj ection. As directed 1 Package 11 Insulin [place], Disposable, (BD INSULIN PEN NEEDLE UF SHORT) 31 X 5/16 " Mi sc Ndle by [facility]Non-Drug; Combo Route) route. 1 Package 11 benzonatate [...] mg by mouth daily early edi fierro ziprasidone (GEODON) 80 mg Oral Cap Take 80 mg by mouth daily with supper. acetaminophen (TYLENOL) 500 mg Oral tablet Take 500-1,000 mg by mouth every 6 hours as needed. OXcarbazepine (TRILEPTAL) 150 mg Oral tablet Take 300 mg by mouth 2 times da cornell. diazepam (VALIUM) 5 mg Oral tablet Take by mouth every 12 hours as needed. 10mg in am, 10mg noon, 5mg in evening, 5mg at night. DISCONTD: meloxicam (MOBIC) 7.5 mg Oral tablet Take 7.5 mg by mouth 2 times daily. topiramate (TOPAMAX) 100 mg Oral tablet Take 1 Tab by mouth 2 times daily. 60 Tab 5 fluticasone-salmeterol (ADVAIR DISKUS) 500-50 mcg/Dose Inhalation DsDv Take 1 Puff by inhalation 2 times daily. 1 Device 5 Oxygen-Air Delivery Systems Misc Leisa Take 2 L/min by inhalation daily at [facility]. ACCU-CHEK ACTIVE CARE Misc Kit by See Admin Instructions route. Before meals , at bedtime, and as needed Component Value Date HEMOGLOBIN A1C 5.5 06/15/2010 HEMOGLOBIN A1C 6.3 09/07/2009 HEMOGLOBIN A1C 5.7 02/26/2009 LDL CHOLESTEROL, DIRECT 152 02/26/2009 CREATININE 1.00 06/15/2010 Component Value Date CHOLESTEROL 283 02/26/2009 CHOLESTEROL 242 05/31/2006 CHOLESTEROL 192 03/15/2006 HDL 31 02/26/2009 HDL 37 05/31/2006 HDL 36 03/15/2006 LDL CHOLESTEROL, DIRECT 152 02/26/2009 LDL CHOLESTEROL, DIRECT 137 05/31/2006 LDL CHOLESTEROL, DIRECT 108 03/15/2006 TRIGLYCERIDE 484 02/26/2009 TRIGLYCERIDE 307 05/31/2006 TRIGLYCERIDE 347 03/15/2006 ALT 35 05/26/2010 AST 12 05/26/2010 Component Value Date CREATININE 1.00 06/15/2010 BUN 20.0 06/15/2010 SODIUM 139 06/15/2010 POTASSIUM 3.9 06/15/2010 CHLORIDE 107 06/15/2010 CO2 22.6 06/15/2010 GFR 66 06/15/2010 Component Value Date ALT 35 05/26/2010 AST 12 05/26/2010 ALKALINE PHOSPHATASE 155 05/26/2010 BILIRUBIN TOTAL 0.2 05/26/2010 Component Value Date INR 1.05 06/15/2010 INR 1.01 05/26/2010 INR 0.94 05/04/2010 PROTIME 11.4 06/15/2010 PROTIME 10.9 05/26/2010 PROTIME 10.2 05/04/2010 HPI: Ms. Odom complains of the following (by systems): Arthritis symptoms: diffuse arthralgias and chroninc pain, worse in low back. d enies any narcotic use. doing ultram and tyl. wants toradol. Chest Pain symptoms: none Depression like symptoms: depressed mood, difficulty concentrating, fatigue and overall emotionally much better. Diabetes Type II complaints: medication compliance: compliant most of the time , diabetic diet compliance: noncompliant some of the time, home glucose monitori ng: is performed sporadically Review of Systems: ROS has all of the following but not progressive and better Headache Dizziness Chest pain Shortness of breath Bowel changes Bladder changes Pain in muscle or joints Exam/Objective: Normal Exam for Routine Visits: \\Blood pressure 122/80, temperature 98.7 F (37 .1 C). General appearance: chronic ill but better appearing, active, alert, cooperative , social, normally nourished, and in no acute distress Lungs: breath sounds equal, clear to auscultation bilaterally, no retractions, n o stridor, normal respiratory effort Heart: regular rate and rhythm, S1, S2 normal, no murmur, click, rub, gallop, or abnormal sounds. Abdomen: soft, non-tender. Bowel sounds normal. No masses, no organomegaly. Ac tive bowel sounds. Extremities: symmetrical non edematous. Tender low back Assessment and Plan: ASSESSMENT: Encounter Diagnoses Name Primary? DM w/o complication type II Chronic pain Pulmonary embolism Sleep apnea Hyperlipidemia PLAN: Orders Placed This Encounter Cmp (4 months x 1) Lipid panel (4 months x 1) Hemoglobin a1c (4 months x 1) Microalbumin/creatinine ratio, random ur (4 months x 1) Diclofenac sodium (voltaren) 75 mg oral tbec Appropriate medications prescribed (see detailed AVS). Appropriate patient instructions provided (see detailed AVS). Follow-up as I have indicated. Medications and options explained to include common side effects. Understanding of medications, course, diagnosis, and expectations were expressed by patient/g uardian. THERAPIST documented in this encounter Plan of Treatment Not on filedocumented as of this encounter Results * MICROALBUMIN/CREATININE RATIO, RANDOM UR (01/06/2011 9:40 AM CDT) MICROALBUMIN, 5.9 mg/L [facility] URINE [facility] Creatinine, 62 mg/dl [facility] Urine [facility] MICROALBUMIN/CR 9.5 <30 ug/mg [facility] EAT RATIO, UR Comment: [facility] UNITS OF MEASURE: ug/mg [facility] Creatinine THE [employer] DEFINES ABNORMALITIES IN ALBUMIN EXCRETION FOLLOWS: CATEGORY RESULT (ug/mg Creatinine) NORMAL < 30 MICROALBUMINURIA 30 - 299 CLINICAL ALBUMINURIA > OR = 300 THE ADA RECOMMENDS THAT AT LEAST TWO OF THREE SPECIMENS COLLECTED WITHIN A 3-6 MONTH PERIOD BE ABNORMAL BEFORE CONSIDERING A PATIENT TO BE WITHIN A DIAGNOSTIC CATEGORY. [facility] ACCT#[id number], ,,,, Specimen Urine specimen (specimen) Performing Organization Address [facility] [place] Ph one Number [facility] CLIA# [id number] [place] [address] [place] CLIA# [id number] [place] [address] * HEMOGLOBIN A1C (01/06/2011 9:36 AM CDT) HEMOGLOBIN A1C 5.7 0 - 6.0 % [facility] GLUCOSE, MEAN 117Comment: [facility] mg/dl [facility] BLOOD ACCT#[id number], ,,,, [facility] [place] [facility] Specimen Blood specimen (specimen) Performing Organization Address City/[facility] [place] Ph one Number [facility] CLIA# [id number] [place] [address] [address] [place] CLIA# [id number] [place], [place] [address] [facility] [address] [place] [address] * LIPID PANEL (01/06/2011 9:36 AM CDT) [facility] Signature CHOLESTEROL 280 (H) 140 - 200 mg/dl [facility] TRIGLYCERIDE 175 0 - 199 mg/dl [facility] Comment: [facility] REFERENCE RANGE - [facility] TRIGLYCERIDES NORMAL LESS THAN 150 mg/dl [place] HIGH 150 - 199 mg/dl HIGH 200 - 499 mg/dl VERY HIGH GREATER THAN OR = 500 mg/dl HDL 36 29 - 89 mg/dl [facility] LDL 183 (H) <130 mg/dl [facility] CHOLESTEROL, Comment: [facility] DIRECT [facility] RISK CATEGORY LDL GOAL High risk: <100 mg/dl CHD or CHD risk equivalents (optional goal: <70 mg/dl) (10-year risk > 20%) Moderately high risk <130 mg/dl 2+ risk factors (10-year risk 10% to 20%) Moderate risk: <130 mg/dl 2+ risk factors (10-year risk < 10%) Lower risk: <160 mg/dl 0-1 risk factor [facility] ACCT#[id number], ,,,, Specimen Blood specimen (specimen) Performing Organization Address City/State/[facility] [place] Ph one Number [facility] CLIA# [id number] ALYSA BRITTON [place] [address] - ALYSA BRITTON 401 [facility] CLIA# [id number] [place]IOJAS S [address] * COMPREHENSIVE METABOLIC PANEL (01/06/2011 9:36 AM CDT) GLUCOSE 84 70 - 100 mg/dl [facility] BUN 19.0 7 - 20 mg/dl [facility] CREATININE 0.93 0.6 - 1.0 mg/dl [facility] BUN/CREAT RATIO 20.4 (H) 10 - 20 [facility] ALYSA BRITTON [facility] GFR 72 >60 ml/min [facility] SODIUM 136 135 - 145 mmol/L [facility] POTASSIUM 3.9 3.3 - 4.8 mmol/L [facility] CHLORIDE 102 98 - 107 mmol/L [facility] CO2 24.2 22 - 31 mmol/L [facility] ANION GAP 14 4 - 20 [facility] CALCIUM 8.3 (L) 8.5 - 10.1 mg/dl [facility] ALBUMIN 3.6 3.4 - 5.0 g/dl [facility] TOTAL PROTEIN 7.1 6.4 - 8.2 g/dl [facility] GLOBULIN (CALC) 3.5 [facility] ALBUMIN/GLOBULI 1.0 [facility] BILIRUBIN TOTAL 0.2 <1.1 mg/dl [facility] ALKALINE 134 50 - 136 IU/L [facility] PHOSPHATASE [place] AL[facility]SA BR[facility]TON [facility] AST 15 10 - 40 IU/L [facility] ALYSA BR[facility]TON [facility] ALT 39Comment: EUGENECLEMENTE BOSS 25 - 70 IU/L [facility] ACCT#[id number], ,,,, CENTER ALYSA BR[place] [facility] Specimen Blood specimen (specimen) Performing Organization Address City/State/Zipcode Ph one Number [facility] CLIA# [id number] [place] RIOJ[place] [address] - ALYSA BRITTON [address] [place] [address] CLIA# [id number] [place] S [address] [facility] [address] [facility] documented in this encounter Visit Diagnoses Diagnosis Type II or unspecified type diabetes me llitus without mention of complication, not stated as uncontrolled Chronic pain Other chronic pain Pulmonary embolism Other pulmonary embolism and infarction Sleep apnea Unspecified sleep apnea Hyperlipidemia Other and unspecified hyperlipidemia documented in this encounter
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
--- OUTSIDE RECORDS SUMMARY | 2019-10-21 18:29 | XMS REPORT | Encounter Summary ---
Author Author [facility] Organization [facility] Address Unknown Phone Unavailable Care Team Providers Care Telehealth Director Name Role Phone King Robby Мария KILLIAN Unavailable Phong Stephens MD PCP Unavailable Encounter Details Care Team Description Date Type Department Phong Stephens MD NO ADDRESS ON FILE 05/04/2010 Anti-coag visit [facility] [address] [address] Social History Date Tobacco Use [...]
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
--- OUTSIDE RECORDS SUMMARY | 2019-10-21 18:29 | XMS REPORT | Encounter Summary ---
Author Author [facility] Organization [facility] Address Unknown Phone Unavailable Care Team Providers Care Timber Faller Name Role Phone Robby Rajan DOOR TO DOOR SALESPERSON Unavailable Phong Stephens MD PCP Unavailable Reason for Visit * Reason Comments Hemorrhoids She has been having hemorrh oid pain more than usual the past 2 weeks. Bleeding hemorrhoids Encounter Details Care Team Description Date Type Department Becka Watters, DOOR TO DOOR SALESPERSON [address] [place] [address] External hemorrhoids (Primary Dx) 04/23/2010 Office Visit [facility] [address] [place] [address] Social History Date Tobacco Use [...] Signs Reading Time Taken Comments Vital Sign 120/60 04/23/2010 12:28 PM MANAGER OF BUSINESS OPERATIONS Blood Pressure 84 04/23/2010 12:28 PM MANAGER OF BUSINESS OPERATIONS Pulse 35.8 C (96.4 F) 04/23/2010 12:28 PM MANAGER OF BUSINESS OPERATIONS Temperature - - Respiratory Rate 99% 04/23/2010 12:28 PM MANAGER OF BUSINESS OPERATIONS Oxygen Saturation - - Inhaled Oxygen Concentration - - Weight - - Height - - Body Mass Index documented in this encounter Progress Notes * Becka Watters, ATTENUATOR - 05/01/2010 7:40 PM MANAGER OF BUSINESS OPERATIONS HISTORY OF PRESENT ILLNESS Ayden Odom, a 39 y.o. female. Rectal Pain This is a new problem. The current episode started 2 days ago. The problem occur s daily. The problem has not changed since onset. Exacerbated by: bowel movement . Nothing relieves the symptoms. Treatments tried: tucks. The treatment provided mild relief. Rectal Bleeding The history is provided by the patient. The current episode started yesterday. T he problem occurs intermittently. The problem has not changed since onset. The p ain is mild. The stool is described as streaked with blood and hard. Associated symptoms include rectal pain. REVIEW OF SYSTEMS Review of Systems Gastrointestinal: Positive for hematochezia and rectal pain. PHYSICAL EXAM BP 120/60 | Pulse 84 | Temp 96.4 F (35.8 C) | SpO2 99% Physical Exam Nursing note and vitals reviewed. Constitutional: She is oriented to person, place, and time. No distress. Cardiovascular: Normal rate and regular rhythm. Pulmonary/Chest: Effort normal and breath sounds normal. Genitourinary: Mild external hemorrhoids without bleeding when examined. Neurological: She is alert and oriented to person, place, and time. ASSESSMENT and PLAN: Encounter Diagnoses 1. External hemorrhoids (455.3A) hydrocortisone acetate (ANUSOL-HC) 25 mg Recta l Supp INR reviewed with results of 1.9 on 03/16/10. GER OF BUSINESS OPERATIONS documented in this encounter Plan of Treatment Not on filedocumented as of this encounter Visit Diagnoses Diagnosis External hemorrhoids - Primary External hemorrhoids without mention of complication documented in this encounter
--- OUTSIDE RECORDS SUMMARY | 2019-10-21 18:29 | XMS REPORT | Encounter Summary ---
Author Author [facility] Organization [facility] Address Unknown Phone Unavailable Care Team Providers Care Charge Entry Specialist Name Role Phone Robby Rajan ORAL AND MAXILLOFACIAL SURGERY Unavailable Phong Stephens MD PCP Unavailable Reason for Visit * Reason Comments Headache She has a migraine that sta rted yesterday. Tramadol is not working. Vomiting She said that she has vomit ed several times since 5 pm tonight. She said that her blood sugar has not been below 174 today either. Encounter Details Care Team Description Date Type Department Becka Watters, ORAL AND MAXILLOFACIAL SURGERY [address] [place] [address] Migraine headache (Primary Dx) 05/02/2010 Office Visit [address] [address] Social History Date Tobacco Use [...] Comments Vital Sign - - Blood Pressure 99 05/02/2010 9:42 PM SSIS ARCHITECT Pulse 37.1 C (98.8 F) 05/02/2010 9:42 PM SSIS ARCHITECT Temperature - - Respiratory Rate 98% 05/02/2010 9:42 PM SSIS ARCHITECT Oxygen Saturation - - Inhaled Oxygen Concentration - - Weight - - Height - - Body Mass Index documented in this encounter Progress Notes * Becka Watters ARNP - 05/04/2010 11:07 AM SSIS ARCHITECT SUBJECTIVE: Ayden Odom is a 39 y.o. female who complains of headaches for one days. Description of pain: squeezing pain. Duration of individual headaches: vary in d uration, frequency and intensity. Associated symptoms: nausea. Pain relief: unab le to obtain relief with OTC meds. Precipitating factors: patient is aware of no ne. She denies a history of recent head injury. Prior neurological history: negative for major head injuries. Neurologic Review of Systems - stable neurological symptoms unchanged from prior visits. Current outpatient prescriptions Medication Sig Dispense Refill promethazine (PHENERGAN) 25 mg Oral tablet Take 1 Tab by mouth every 6 hours as needed for Nausea. 20 Tab 0 insulin glargine (LANTUS) 100 unit/mL subCUT pen Inject by subcutaneous inj ection. As directed 1 Package 11 Insulin [place], Disposable, (BD INSULIN PEN NEEDLE UF SHORT) 31 X 5/16 " Mi sc Ndle by [facility]Non-Drug; Combo Route) route. 1 Package 11 gabapentin (NEURONTIN) 600 mg Oral tablet Take 1 Tab by mouth 3 times daily. 120 Tab 11 benzonatate (TESSALON) 100 mg Oral capsule Take 2 Caps by mouth 3 times celestino y as needed for Cough. 30 Cap 2 traMADol (ULTRAM) 50 mg Oral tablet Take 1 Tab by mouth every 6 hours as nee ded for Pain. 30 Tab None DISCONTD: insulin glargine (LANTUS) 100 unit/mL subCUT pen Inject by subcut aneous injection daily. hydrocortisone acetate (ANUSOL-HC) 25 mg Rectal Supp Insert 1 Suppository by rectum 2 times daily as needed for Hemorrhoids for 14 days. 28 Suppository 1 citalopram (CELEXA) 20 mg Oral tablet Take 20 mg by mouth daily early morladi crawford. ziprasidone (GEODON) 80 mg Oral Cap Take 80 mg by mouth daily with supper. meloxicam (MOBIC) 7.5 mg Oral tablet Take 7.5 mg by mouth 2 times daily. acetaminophen (TYLENOL) 500 mg Oral tablet Take 500-1,000 mg by mouth every 6 hours as needed. OXcarbazepine (TRILEPTAL) 150 mg Oral tablet Take 150 mg by mouth 3 times da cornell. diazepam (VALIUM) 5 mg Oral tablet Take 5 mg by mouth every 12 hours as need ed. DISCONTD: gabapentin (NEURONTIN) 300 mg Oral capsule Take 600 mg by mouth 4 times daily. cyclobenzaprine (FLEXERIL) 10 mg Oral tablet Take 1 Tab by mouth 3 times cathleen ly as needed for Spasm. 10 Tab 0 warfarin (COUMADIN) 5 mg Oral tablet Take 5 mg by mouth daily. topiramate (TOPAMAX) 100 mg Oral tablet Take 1 Tab by mouth 2 times daily. 60 Tab 5 albuterol-ipratropium (COMBIVENT) 103-18 mcg/Actuation Inhalation Aero Take 2 Puffs by inhalation every 6 hours. 1 Inhaler 5 potassium chloride SR (K-DUR) 10 mEq Oral tablet Take 1 Tab by mouth 2 times daily. 60 Tab 5 levalbuterol HFA (XOPENEX HFA) 45 mcg/Actuation Inhalation HFAA Take 2 Puffs by inhalation every 6 hours. 1 Inhaler 5 furosemide (LASIX) 40 mg Oral tablet Take 1 Tab by mouth 2 times daily. 1 ta b Bid 60 Tab 5 fluticasone-salmeterol (ADVAIR DISKUS) 500-50 mcg/Dose Inhalation DsDv Take 1 Puff by inhalation 2 times daily. 1 Device 5 Oxygen-Air Delivery Systems Misc Leisa Take 2 L/min by inhalation daily at [facility]. [facility] Misc Kit by See Admin Instructions route. Before meals , at bedtime, and as needed OBJECTIVE: Appearance: alert, well appearing, and in no distress, oriented to person, place , and time and in mild to moderate distress. Neurological Exam: alert, oriented, normal speech, no focal findings or movement disorder noted, neck supple without rigidity, cranial nerves II through XII int act, DTR's normal and symmetric, motor and sensory grossly normal bilaterally, n ormal muscle tone, no tremors, strength 5/5. ASSESSMENT: migraine - common. PLAN: Recommendations: lie in darkened room and apply cold packs prn for pain. See orders for this visit as documented in the electronic medical record. ARCHITECT documented in this encounter Plan of Treatment Not on filedocumented as of this encounter Visit Diagnoses Diagnosis Migraine headache - Primary Migraine, unspecified, without mention of intractable migraine without mention of status migrainosus documented in this encounter
--- OUTSIDE RECORDS SUMMARY | 2019-10-21 18:29 | XMS REPORT | Encounter Summary ---
Author Author [facility] Organization [facility] Address Unknown Phone Unavailable Care Team Providers Care Manager Development Name Role Phone Robby Rajan REHAB NURSE Unavailable Phong Stephens MD PCP Unavailable Reason for Visit * Reason Comments Head Lice Encounter Details Care Team Description Date Type Department Jessica Christian Head Lice 05/26/2010 Telephone [facility] [address] [address] Social History Date Tobacco Use [...] * Telephone Encounter - Jessica Christian - 05/26/2010 1:09 PM POULTRY PROCESSING SUPERVISOR Per Dr Stephens may treat with [place] or equivalent. TRY PROCESSING SUPERVISOR documented in this encounter Plan of Treatment Not on filedocumented as of this encounter Visit Diagnoses Not on filedocumented in this encounter
--- OUTSIDE RECORDS SUMMARY | 2019-10-21 18:29 | XMS REPORT | Encounter Summary ---
Author Author [facility] Organization [facility] Address Unknown Phone Unavailable Care Team Providers Care Blower Insulator Name Role Phone Robby Rajan APRN Unavailable Phong Stephens MD PCP Unavailable Encounter Details Care Team Description Date Type Department 05/02/[address] 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 04/15/2010 07/22/2010 ziprasidone (GEODON) 80 Take 80 [...] tab Bid documented as of this encounter Plan of Treatment Not on filedocumented as of this encounter Visit Diagnoses Not on filedocumented in this encounter
--- OUTSIDE RECORDS SUMMARY | 2019-10-21 18:29 | XMS REPORT | Encounter Summary ---
Author Author [facility] Organization [facility] Address Unknown Phone Unavailable Care Team Providers Care Stripping And Booking Machine Operator Name Role Phone Robby Rajan Мария KILLIAN Unavailable Phong Stephens MD PCP Unavailable Reason for Visit * Reason Comments Medication Refill [facility] Check overnight stay last month Encounter Details Care Team Description Date Type Department Phong Stephens MD NO ADDRESS ON FILE DM w/o complication type II; Fibromyalgia; Rib pain; Cough; Embolism and thrombosis of unspecified site 05/04/2010 Office Visit [facility] Primar Care [address] [id number] Social History Date Tobacco Use Types Packs/Day [...] Signs Reading Time Taken Comments Vital Sign 118/72 05/04/2010 10:16 AM CONVENTIONS ASSISTANT Blood Pressure 80 05/04/2010 10:16 AM CONVENTIONS ASSISTANT Pulse - - Temperature - - Respiratory Rate - - Oxygen Saturation - - Inhaled Oxygen Concentration - - Weight - - Height - - Body Mass Index documented in this encounter Progress Notes * Phong Stephens MD - 05/04/2010 10:57 AM CONVENTIONS ASSISTANT Subjective: Ayden Odom is a 39 y.o. female. Patient Active Problem List Diagnoses Code Unspecified Asthma 493.90 Unspecified Migraine without Mention of Intractable Migraine 346.90 Unspecified Myalgia and Myositis 729.1 Bipolar Disorder, Unspecified 296.80 Lumbago 724.2 Unspecified Hereditary and Idiopathic Peripheral Neuropathy 356.9 Embolism and Thrombosis of Unspecified Site 453.9 Chronic Airway Obstruction, not Elsewhere Classified 496 Pulmonary Embolism 415.19AD CHRONIC PAIN 338.2A DM w/o Complication Type II 250.00 Hip Pain 719.45F Sleep Apnea 780.57C Urinary Retention 788.20B Hyperlipidemia 272.4S Narcolepsy and Cataplexy 347.01E Mental Status Change 780.97G Chest wall pain 786.52Q Current outpatient prescriptions ordered prior to encounter Medication Sig Dispense Refill citalopram (CELEXA) 20 mg Oral tablet Take [...] mouth every 12 hours as need ed. cyclobenzaprine (FLEXERIL) 10 mg Oral tablet Take [...] meals , at bedtime, and as needed promethazine (PHENERGAN) 25 mg Oral tablet Take 1 Tab by mouth every 6 hours as needed for Nausea. 20 Tab 0 traMADol (ULTRAM) 50 mg Oral tablet Take 1 Tab by mouth every 6 hours as nee ded for Pain. 30 Tab None DISCONTD: insulin glargine (LANTUS) 100 unit/mL subCUT pen Inject by subcut aneous injection daily. hydrocortisone acetate (ANUSOL-HC) 25 mg Rectal Supp Insert 1 Suppository by rectum 2 times daily as needed for Hemorrhoids for 14 days. 28 Suppository 1 DISCONTD: gabapentin (NEURONTIN) 300 mg Oral capsule Take 600 mg by mouth 4 times daily. HPI: Ms. Odom complains of the following (by systems): Diabetes Type II complaints: medication compliance: compliant most of the time , diabetic diet compliance: noncompliant some of the time, home glucose monitori ng: is performed regularly recent fall and R rib pain. worse realted to cough x 1-2 weeks and uri sxs. Review of Systems: ROS Denies all of the following: Headache Dizziness Chest pain Shortness of breath Bowel changes Bladder changes Exam/Objective: Normal Exam for Routine Visits: \\Blood pressure 118/72, pulse 80. General appearance:chronic ill but better than usual appearing, active, alert, c ooperative, social, normally nourished, and in mild acute distress Lungs: breath sounds equal, clear to auscultation bilaterally, no retractions, n o stridor, normal respiratory effort, tendere R mid / lat ribs Heart: regular rate and rhythm, S1, S2 normal, no murmur, click, rub, gallop, or abnormal sounds. Abdomen: soft, non-tender. Bowel sounds normal. No masses, no organomegaly. Ac tive bowel sounds. Extremities: symmetrical non edematous. Assessment and Plan: ASSESSMENT: Encounter Diagnoses Name Primary? DM w/o complication type II Fibromyalgia Rib pain Cough Embolism and thrombosis of unspecified site PLAN: Orders Placed This Encounter Bmp Hemoglobin a1c Protime & inr Insulin glargine (lantus) 100 unit/ml subcut pen Insulin needles, disposable, (bd insulin pen needle uf short) 31 x 5/16 " mi sc ndle Gabapentin (neurontin) 600 mg oral tablet Benzonatate (tessalon) 100 mg oral capsule lantus to 40 units hs and 20 units am Appropriate medications prescribed (see detailed AVS). Appropriate patient instructions provided (see detailed AVS). Follow-up as I have indicated. Medications and options explained to include common side effects. Understanding of medications, course, diagnosis, and expectations were expressed by patient/g uardian. ENTIONS ASSISTANT documented in this encounter Plan of Treatment Not on filedocumented as of this encounter Results * HEMOGLOBIN A1C (06/15/2010 8:49 AM CONVENTIONS ASSISTANT) HEMOGLOBIN A1C 5.5 0 - 6.0 % [facility] GLUCOSE, MEAN 111Comment: [facility] mg/dl [facility] BLOOD ACCT#[id number], ,,,, [facility] [place] [facility] Specimen Blood specimen (specimen) Performing Organization Address City/State/Zipcode Ph one Number [facility] CLIA# [id number] AL[place]SA BRITTON [place] [address] - ALYSA BRITTON [address] [place] [address] CLIA# [id number] [place] [address] * BASIC METABOLIC PANEL (06/15/2010 8:49 AM CONVENTIONS ASSISTANT) GLUCOSE 100 70 - 100 mg/dl [facility] BUN 20.0 7 - 20 mg/dl [facility] CREATININE 1.00 0.6 - 1.0 mg/dl [facility] BUN/CREAT RATIO 20.0 10 - 20 [facility] GFR 66 >60 ml/min [facility] SODIUM 139 135 - 145 mmol/L [facility] POTASSIUM 3.9 3.3 - 4.8 mmol/L [facility] CHLORIDE 107 98 - 107 mmol/L [facility] CO2 22.6 22 - 31 mmol/L [facility] ANION GAP 13 4 - 20 [facility] ALYSA BRITTON LAB CALCIUM 9.1Comment: [facility] 8.5 - 10.1 mg/dl [facility] ACCT#[id number], ,,,, CENTER ALYSA BRITTON [facility] Specimen Blood specimen (specimen) Performing Organization Address City/[facility] Ph one Number [facility] CLIA# [id number] CLEMENTE RIOJAS [address] - ALYSA BRITTON [address] [place] [address] CLIA# [id number] Milly RIOJAS [id number] * PROTIME-INR (05/04/2010 11:17 AM CONVENTIONS ASSISTANT) PROTIME 10.2 9.9 - 11.7 Sec [facility] ALYSA BRITTON LAB INR 0.94 (L)Comment: 2.0 - 3.0 [facility][id number], ,,,[facility] LAB Specimen Blood specimen (specimen) Performing Organization Address City/[facility] Ph one [facility]ORY SERVICES CLIA# [id number] CLEMENTE RIOJAS [address] - ALYSA BRITTON [address] [place] [address] CLIA# [id number] Milly RIOJAS [id number] documented in this encounter Visit Diagnoses Diagnosis Type II or unspecified type diabetes me llitus without mention of complication, not stated as uncontrolled Fibromyalgia Mylagia and myositis, unspecified Rib pain Chest pain, unspecified Cough Embolism and thrombosis of unspecified site documented in this encounter
--- OUTSIDE RECORDS SUMMARY | 2019-10-21 18:29 | XMS REPORT | Encounter Summary ---
Author Author [facility] Organization [facility] Address Unknown Phone Unavailable Care Team Providers Care Mental Hygiene Consultant Name Role Phone Robby Rajan CONSTANTIN Unavailable Phong Stephens MD PCP Unavailable Encounter Details Care Team Description Date Type Department Phong Stephens MD NO ADDRESS ON FILE [facility], Lab Schedule 05/04/2010 Hospital [facility] General Encounter Laboratory Services [address] [phone] Social History Date Tobacco Use [...] meals, at bedtime, and as needed 05/04/2010 08/09/2010 insulin glargine (LANTUS) Inject by 1 Package 11 100 unit/mL subCUT subcutaneous penIndications: Type II injection. As or unspecified type directed diabetes mellitus without mention of complication, not stated as uncontrolled 05/04/2010 05/18/2011 Insulin [place], by 1 Package 11 Disposable, (BD INSULIN [...] mg by 0 Oral tablet mouth daily evp chief exploration officer. 04/15/2010 07/22/2010 ziprasidone (GEODON) 80 Take 80 [...] Priority Date/Time Associated Diag nosis PROTIME-INR Routine 05/04/2010 Embolism and th rombosis 11:17 AM VISION REHABILITATION THERAPIST of unspecified site documented in this encounter Results * PROTIME-INR (05/04/2010 11:17 AM VISION REHABILITATION THERAPIST) PROTIME 10.2 9.9 - 11.7 Sec [facility] ALYSA BRITTON LAB INR 0.94 (L)Comment: 2.0 - 3.0 [facility] ACCT#[id number], ,,,, [facility] LAB Specimen Blood specimen (specimen) Performing Organization Address City/State/Zipcode Ph one Number [facility] CLIA# [id number] CLEMENTE RIOJAS [address] - ALYSA BRITTON [address] [place] [address] CLIA# [id number] Milly RIOJAS S [id number] [facility] [address] [place] [address] documented in this encounter Visit Diagnoses Diagnosis Embolism and thrombosis of unspecified site documented in this encounter
--- OUTSIDE RECORDS SUMMARY | 2019-10-21 18:29 | XMS REPORT | Encounter Summary ---
Author Author [facility] Organization [facility] Address Unknown Phone Unavailable Care Team Providers Care Quality Assurance Lead Name Role Phone King Robby Мария KILLIAN Unavailable Phong Stephens MD PCP Unavailable Reason for Visit * Reason Comments Medication Refill Encounter Details Care Team Description Date Type Department Phong Stephens MD NO ADDRESS ON FILE 05/16/2010 [facility] [address] [address] Social History Date Tobacco Use [...]
--- OUTSIDE RECORDS SUMMARY | 2019-10-21 18:30 | XMS REPORT | Encounter Summary ---
Author Author [facility] Organization [facility] Address Unknown Phone Unavailable Care Team Providers Care Tax Compliance Manager Name Role Phone Phong Stephens MD PCP Unavailable Robby Rajan AUTHORIZATION MANAGER Unavailable Reason for Visit * Reason Comments Other outpt per Dr. Christian for dickey catheter drainage and leg bag Dickey is leaking around catheter bag * Auth/Cert Referred By Contact Referred To Contact Status Reason Specialty Diagnoses / Procedures [facility] Emergency [address] [place] [address] Closed Emergency Medicine Encounter Details Care Team Description Date Type Department Homar Christian MD [address] [place] [address] 12/06/2009 Emergency [facility] Emergency Department [address] [phone] Social History Date Tobacco Use Types Packs/Day Years Used Current Every Day Smoker Cigarettes 1 Comments: STARTED SMOKING AGE 11 Drinks/Week oz/Week [...] Before meals, at bedtime, and as needed 12/02/2009 04/15/2010 gabapentin (NEURONTIN) Take 1 Cap by 1 Cap 1 300 mg Oral capsule mouth 2 times daily. 09/07/2009 06/09/2010 cyclobenzaprine Take 1 Tab by [...]
--- OUTSIDE RECORDS SUMMARY | 2019-10-21 18:30 | XMS REPORT | Encounter Summary ---
Author Author [facility] Organization [facility] Address Unknown Phone Unavailable Care Team Providers Care Terminal System Operator Name Role Phone Robby Rajan CLINICAL NUTRITION MANAGER Unavailable Reason for Visit * Reason Comments Chest Pain under left breast. tender to touch. chest tightness. pt. reports radiates into left arm. Shortness of Breath onset approx 1 hour ago. p t. reports that she ran out of her oxygen in her oxygen tank approx 1.5 hours ago. pt. reports she is to be on 2-3 L nc. syncope pt. reports she has been pa ssing out all day. High Blood Sugar pt. reports that blood suga r has been going high and low over the past 1 week. pt. reports she can't get it und er control. * Auth/Cert Referred By Contact Referred To Contact Status Reason Specialty Diagnoses / Procedures [facility] Med Surg [address] [place] [address] Closed Inpatient Encounter Details Care Team Description Date Type Department Saturnino Canales MD NO ADDRESS ON FILE Phong Stephens MD NO ADDRESS ON FILE Type II or unspecified type diabetes flori litus without mention of complication, not stated as uncontrolled 04/15/2010 Emergency [facility] Medical Surgical 04/16/2010 [address] [place] [address] Social History Date Tobacco Use [...] Signs Reading Time Taken Comments Vital Sign 123/77 04/16/2010 8:18 AM RADIAL SAW OPERATOR Blood Pressure 91 04/16/2010 8:18 AM RADIAL SAW OPERATOR Pulse 36.8 C (98.3 F) 04/16/2010 8:18 AM RADIAL SAW OPERATOR Temperature 20 04/16/2010 8:18 AM RADIAL SAW OPERATOR Respiratory Rate 98% 04/16/2010 8:18 AM RADIAL SAW OPERATOR Oxygen Saturation - - Inhaled Oxygen Concentration 138.1 kg (304 lb 6.4 oz) 04/16/2010 4:17 AM RADIAL SAW OPERATOR Weight 160 cm (5' 3") 04/16/2010 12:35 AM RADIAL SAW OPERATOR Height 53.92 04/16/2010 12:35 AM RADIAL SAW OPERATOR Body Mass Index documented in this encounter Discharge Summaries * Phong Stephens MD - 04/16/2010 9:38 AM RADIAL SAW OPERATOR This discharge note has been dictated. AL SAW OPERATOR * Phong Stephens MD - 04/16/2010 9:38 AM RADIAL SAW OPERATOR This history note has been dictated as part of discharge summary from [facility] n AL SAW OPERATOR documented in this encounter Discharge Instructions * Patient Instructions* Ari Stanley Physician - 04/18/2010 1:46 PM RADIAL SAW OPERATOR * Additional Instructions* Saturnino Duron RN - 04/16/2010 FOLLOW-UP Follow up with Phong Stephens MD call for appointment. SIGNS AND SYMPTOMS TO REPORT Contact me if you experience any of the following symptoms: increase in pain, sh ortness of breath or difficulty breathing or worsening of your codition. ACTIVITY Your activity level is: activity as tolerated. DIET Your diet is: Diabetic diet (specify calories / restrictions) and heart healthy YOUR HOSPITAL PROBLEMS ADDRESSED INCLUDE Patient Active Hospital Problem List: *Chest wall pain (04/16/2010) DM w/o Complication Type II (04/14/2008) You are taking Mobic for arthritis so Do Not take other arthritis meds like alev e Keep a list of your home sugars so we can review on your return visit. DISCHARGE DESTINATION:Home. MEDICATIONS Reminder-- Please discard any old medication lists and update records with all o f your medication providers and retail pharmacies. If you have CHF (Congestive Heart Failure) [...] second hand smoke. THANK YOU FOR CHOOSING [facility] We are committed to providing you very good care and we want to exceed your expe ctations. When you get home, you may receive a letter from our President/SHANK SANDER a nd a survey. We sincerely ask that you take a few moments to fill out the surve y and return it in the postage paid envelope. * Attachments The following attachments cannot be sent through Care Everywhere.* CHEST PAIN: AFTER YOUR VISIT TO THE EMERGENCY ROOM ([facility]) documented in this encounter Medications at Time of Discharge Start Date End Date Medication Sig Dispensed Refills 10/05/2007 Oxygen-Air Delivery Take 2 L/min 0 Systems Misc Leisa by inhalation daily at bedtime. 10/05/2007 ACCU-CHEK ACTIVE CARE by See Admin 0 Misc Kit Instructions route. Before meals, at bedtime, and as needed 04/15/2010 12/09/2010 citalopram (CELEXA) 20 mg Take 20 mg by 0 Oral tablet mouth daily technical research scientist. 04/15/2010 07/22/2010 ziprasidone (GEODON) 80 Take 80 [...] tab Bid documented as of this encounter H&P Notes * Phong Stephens MD - 04/16/2010 11:04 AM RADIAL SAW OPERATOR [facility]. [address] [place] [address] HISTORY AND PHYSICAL Patient: JERALD VELAZQUEZ Location: [facility] Room#: 105 CSN: [id number] Date: 04/15/2010 DIAGNOSES: 1. Chest wall pain. 2. Recent diarrhea. 3. Chronic pain. 4. Diabetes. 5. Chronic obstructive pulmonary disease. 6. Tobaccoism. 7. Gastroesophageal reflux. 8. History of seizures. 9. History of recent myocardial infarction, details not confirmed. HISTORY: This is a 39-year-old woman who presented to the emergency room compla ining of acute onset of pain in the left lower lateral chest wall area. It was nonexertional, not associated with particular increased shortness of breath or d iaphoresis. She had complained of some lightheadedness and recurrent syncopal e pisodes, but this is a chronic issue with her. Her description to me was almost more somnolence. She has have a history of some sleep abnormalities. She also was concerned about blood sugar variability since it had been high and low. Be cause of the complex of symptoms, especially the chest pain, she was admitted to an observation bed to rule out acute ischemic cardiac injury. PAST MEDICAL HISTORY: She has a history of COPD, arthritis, asthma, diabetes, g astroesophageal reflux, headaches, seizures, CHF, arteriosclerotic vascular dise ase. Surgically she has had OJB-BSO, appendectomy, section, hysterecto my, tubal ligations and a cholecystectomy. FAMILY HISTORY: Positive for cardiovascular disease, cancer, diabetes and seizu res. SOCIAL SITUATION: Just recently had been living in the [place] area where eugenia sexton got care from the doctors in that area. She says now she is moving back to [facility]. She is single. Her was complicating the situation in terms o f possibly misusing her narcotic pain medications, is not currently with her. S he does continue to smoke. Denies alcohol use currently. Denies illicit drug u se. MEDICATIONS PRIOR TO ADMISSION: Celexa, Geodon, Mobic, Tylenol, Trileptal, Neur ontin, Valium, Flexeril, Coumadin, Topamax, Combivent, K-Dur, Xopenex, Lasix, Ad vair. She has been doing Accu-Cheks on a regular basis. ALLERGIES: ALOE VERA, TAPE, DOXYCYCLINE, XANAX. REVIEW OF SYSTEMS: As per history of present illness. PHYSICAL EXAMINATION: VITAL SIGNS: She is afebrile, pulse is 91, respiration 20, blood pressure 123/7 7. GENERAL: The patient was sleeping. She awoke, she was conversant, she was rela tively engaged for her. HEENT: Pupils are equal, round, reactive. Mucous membranes are hydrated. NECK: Without masses. CHEST: Bilaterally clear to auscultation. CARDIOVASCULAR: Regular. There is tenderness to palpation along the left side and left lower anterolateral rib cage that reproduces the pain that she presente d to the emergency room. ABDOMEN: Obese. The bowel sounds are present. There is no localized tendernes s, rebound, guarding or masses in the abdomen. AND RECTAL: She has chronic indwelling catheter. EXTREMITIES: Symmetrical with some trace of edema. Again this is chronic. NEUROLOGICAL: She was sleeping. She awoke, she became alert and engaged in con versation, no acute lateralizing deficits. LABORATORY AND X-RAY DATA: Cardiac isos were negative being less than 0.04. Ur inalysis had 10-15 WBCs. CBC: WBCs are 7.8, hemoglobin 13.9. Lab chemistry: Calcium was 8.3, glucose was 121, otherwise normal. INR was at 1.93. HOSPITAL COURSE: Since her hospitalization, the patient has actually had an imp rovement in her chest pain. Still exists, but no progression. No other evoluti on of problems at this point. In light of the stable situation, the negative is os and the reproducible chest wall pain, she is being dismissed home. We gave h er instructions in terms of the use of warm moist packs. She will continue on t he Mobic. She will continue on the other medications from her home regimen. If she moves back to the [facility], she will call and will schedule appointm ents on ongoing basis. She needs to brings us a list of Accu-Cheks so we can ma ke decisions regarding her history. Her blood sugars have been unstable, being too high and then too low. She is currently using Ultram for pain. She says th e physicians in [place] would not give her narcotic pain medications and we c ertainly agree with that and will reinforce with her that that is the appropriat e medicine, although if she is on the Celexa, Ultram may be a problem as well. We will work that as we evaluate an ongoing basis. She understands about care a nd followup. Dictated by: Phong Stephens MD/MEDGrabiel d: 04/16/2010 09:51:15 t: 04/16/2010 10:58:02 Voice job id: [id number] Internal Job id: [id number] AL SAW OPERATOR documented in this encounter Procedure Notes * Aok Scanning, [facility] Physician - 04/19/2010 1:41 PM RADIAL SAW OPERATOR Associated Order(s): EKG 12-LEAD; EKG 12-LEAD * Aok Scanning, [facility] Physician - 04/19/2010 1:34 PM RADIAL SAW OPERATOR Associated Order(s): EKG 12-LEAD; EKG 12-LEAD * Aok Scanning, [facility] Physician - 04/18/2010 3:10 PM RADIAL SAW OPERATOR Associated Order(s): TELEMETRY REPORT; TELEMETRY REPORT * Aok Scanning, [facility] Physician - 04/18/2010 3:06 PM RADIAL SAW OPERATOR Associated Order(s): TELEMETRY REPORT; TELEMETRY REPORT * Sukhi Fontana MD - 04/18/2010 1:42 PM RADIAL SAW OPERATOR Associated Order(s): EKG 12-LEAD; EKG 12-LEAD [address] [address] EKG JERALD VELAZQUEZ JAUN [id number] 04/15/10 at 2231. The rhythm is regular, si nus in origin with a rate of 87 beats per minute. Q waves are noted in limb lead III without abnormal Q waves in leads II or aVF. Compared with previous tracing dated November 23 2009, there are no major differences. Diagnosis: 1) Sinus rhyth m, rate 87 beats per minute. 2) Borderline inferior limb lead Q waves, probably within normal limits. Dictated by S.SoyW. Dictated by: EKG DD 04/18/10 TD 04/18/10/LRG EKG REPORT # [id number] ORDER # AL SAW OPERATOR documented in this encounter ED Notes * Ynes Chung RN - 04/15/2010 11:[address]. Canales notified of pt. Chest pain that is continued for pt. Orders noted. AL SAW OPERATOR * Ynes Chung, RN - 04/15/2010 11:51 PM RADIAL SAW OPERATOR Pt. Has suprapubic catheter present. Pt. Unsure of the last day it was changed. Pt. Drained bag at this time, approx 475 ml out. AL SAW OPERATOR * Ynes Chung RN - 04/15/2010 11:10 PM RADIAL SAW OPERATOR Pt. Reports chest pain is coming and going. Notified Dr. Canales. AL SAW OPERATOR * Ynes Chung RN - 04/15/2010 10:46 PM RADIAL SAW OPERATOR Pt. Reported that chest tightness was improving after being placed on oxygen. After starting iv pt. Reported that she started to have some chest tightness aga in. bp 110/64, 84 heart rate, NSR, 100% on 2L nc, resp 16. Will continue to mo nitor. AL SAW OPERATOR * Saturnino Canales MD - 04/15/2010 10:31 PM RADIAL SAW OPERATOR HISTORY OF PRESENT ILLNESS Jerald Velazquez, a 39 y.o. female presents to the ED with a Chief Complaint o f Chest Pain, Shortness of Breath, syncope and High Blood Sugar Jerald notes that she was told last month that she had had a heart attack. Now having left sided chest pain and shortness of breath. In addition had three alisha ting spells at home tonight. Patient is a 39 y.o. female presenting with chest pain, shortness of breath, syn cope, and hyperglycemia. The history is provided by the patient. Chest Pain This is a new problem. The current episode started more than 1 week ago (has bee n having pain across her left chest and ribs off and on all week, worse tonight. ). The problem occurs daily. The problem has been gradually worsening. Associat ed With: not exertional just comes on. The pain is present in the lateral region (hurts in the left lateral chest). The quality of the pain is described as sharp and pressure-like. The pain does not radiate. Duration of episode(s) is 1 hour. Associated symptoms include syncope and shortness of breath. Pertinent negatives include no diaphoresis, no fever, no numbness, no exertional chest pressure, no orthopnea, no abdominal pain, no nausea, no vomiting, no headaches, no back p ain, no dizziness, no cough, no hemoptysis and no sputum production. Risk factor s include obesity and a sedentary lifestyle (diabetes). She has tried nothing fo r the symptoms. Shortness of Breath Associated symptoms include chest pain and syncope. Pertinent negatives include no fever, no headaches, no sore throat, no cough, no sputum production, no hemop tysis, no orthopnea, no vomiting, no abdominal pain, no rash and no leg swelling . Syncope This is a recurrent problem. Episode onset: notes she has passed out three times today. thought it was her BS, but cant find her glucometer. She lost conscious ness for a period of less than one minute. The problem is associated with normal activity. Associated symptoms include chest pain. Pertinent negatives include a bdominal pain, back pain, clumsiness, confusion, congestion, diaphoresis, dizzin ess, fever, focal weakness, headaches, nausea, seizures, slurred speech and vomi ting. She has tried nothing for the symptoms. High Blood Sugar Associated symptoms include chest pain and shortness of breath. Pertinent negati ves include no abdominal pain and no headaches. REVIEW OF SYSTEMS Review of Systems Constitutional: Negative for fever, chills and diaphoresis. HENT: Negative for congestion, sore throat and ear discharge. Respiratory: Positive for shortness of breath. Negative for cough, hemoptysis an d sputum production. Cardiovascular: Positive for chest pain and syncope. Negative for orthopnea and leg swelling. Gastrointestinal: Negative for nausea, vomiting, abdominal pain and blood in sto ol. Genitourinary: Negative for dysuria and frequency. Musculoskeletal: Negative for back pain and joint pain. Skin: Negative for rash. Neurological: Negative for dizziness, tingling, focal weakness, seizures, numbne ss and headaches. Psychiatric/Behavioral: Negative for confusion. PAST MEDICAL HISTORY REVIEWED Past Medical History [...] 04/19/2009 SIGMOIDOSCOPY performed by MUKESH DOMÍNGUEZ at [facility] OR Pt denies relevant surgical history [...] 2 Puffs by inhalation every 6 hours. AMPHETAMINE-DEXTROAMPHETAMINE (ADDERALL) 10 MG ORAL TABLET Take 0.5 Tabs by mouth daily. ATORVASTATIN (LIPITOR) 80 MG ORAL TABLET Take 80 mg by mouth Daily LATE. CITALOPRAM (CELEXA) 20 MG ORAL TABLET Take 20 mg by mouth daily early morladi g. CYCLOBENZAPRINE (FLEXERIL) 10 MG ORAL TABLET Take 1 Tab by mouth 3 times cathleen ly as needed for Spasm. DEPAKOTE 500 MG ORAL TBEC Take 1 Tab by mouth 3 times daily. DIAZEPAM (VALIUM) 5 MG ORAL TABLET Take 5 mg by mouth every 12 hours as need ed. DOCUSATE SODIUM (COLACE) 100 MG ORAL CAP Take 100 mg by mouth 2 times daily as needed for Constipation. DULOXETINE (CYMBALTA) 30 MG ORAL CPDR Take 1 Cap by mouth daily. ESOMEPRAZOLE (NEXIUM) 40 MG ORAL CPDR Take 1 Cap by mouth daily before a naren l. FLUTICASONE-SALMETEROL (ADVAIR DISKUS) 500-50 MCG/DOSE INHALATION DSDV Take 1 Puff by inhalation 2 times daily. FUROSEMIDE (LASIX) 40 MG ORAL TABLET Take 1 Tab by mouth 2 times daily. 1 ta b Bid GABAPENTIN (NEURONTIN) 300 MG ORAL CAPSULE Take 3 Caps by mouth daily at bed time. LEVALBUTEROL HFA (XOPENEX HFA) 45 MCG/ACTUATION INHALATION HFAA Take 2 Puffs by inhalation every 6 hours. LORAZEPAM (ATIVAN) 1 MG ORAL TABLET Take 0.5 Tabs by mouth 2 times daily. LOVAZA 1 GRAM ORAL CAP Take 1 Gram by mouth 3 times daily. MELOXICAM (MOBIC) 7.5 MG ORAL TABLET Take 7.5 mg by mouth 2 times daily. NAPROXEN (NAPROSYN) 500 MG ORAL TABLET Take 1 Tab by mouth 2 times daily wit h meals. OLANZAPINE (ZYPREXA) 5 MG ORAL TABLET Take 1 Tab by mouth daily at bedtime. ONDANSETRON (ZOFRAN) 4 MG ORAL TAB Take 2 Tabs by mouth every 6 hours as nee ded for Nausea. OXCARBAZEPINE (TRILEPTAL) 150 MG ORAL TABLET Take 150 mg by mouth 3 times da cornell. OXYCODONE-ACETAMINOPHEN (PERCOCET) 10-325 MG ORAL TAB Take 1 Tab by mouth ev ana lilia 8 hours as needed. OXYGEN-AIR DELIVERY SYSTEMS MISC LEISA Take 2 L/min by inhalation daily at be dtime. POTASSIUM CHLORIDE SR (K-DUR) 10 MEQ ORAL TABLET Take 1 Tab by mouth 2 times daily. ROPINIROLE (REQUIP) 0.25 MG ORAL TABLET Take 1 Tab by mouth daily at bedtime . TOPIRAMATE (TOPAMAX) 100 MG ORAL TABLET Take 1 Tab by mouth 2 times daily. WARFARIN (COUMADIN) 10 MG ORAL TABLET Take 10 mg by mouth every Sunday, esd, and Sunday. WARFARIN (COUMADIN) 5 MG ORAL TABLET Take 5 mg by mouth daily. ZIPRASIDONE (GEODON) 80 MG ORAL CAP Take 80 mg by mouth daily with supper. Medications Modified during this Encounter Modified Medication Previous Medication GABAPENTIN (NEURONTIN) 300 MG ORAL CAPSULE gabapentin (NEURONTIN) 300 mg Oral c apsule Take 600 mg by mouth 4 times daily. Take 1 Cap by mouth 2 times daily. Medications Discontinued during this Encounter PHYSICAL EXAM Initial Vitals BP 04/15/10 2218 127/66 mmHg Pulse 04/15/10 2218 99 Resp 04/15/10 2218 17 Temp -- Temp src -- SpO2 04/15/10 2218 99 % Physical Exam Vitals reviewed. Constitutional: She [...] orders placed during the hospital encounter of 04/15/10 (from the [facility] 24 hour(s)) COMPREHENSIVE METABOLIC PANEL Component Value Range GLUCOSE 121 (*) 70-100 (mg/dl) BUN 15.0 7-20 (mg/dl) CREATININE 1.13 (*) 0.6-1.0 (mg/dl) BUN/CREAT RATIO 13.3 10-20 GFR 58 >60 (ml/min) SODIUM 135 135-145 (mmol/L) POTASSIUM 3.5 3.3-4.8 (mmol/L) CHLORIDE 103 98-107 (mmol/L) CO2 25.5 22-31 (mmol/L) ANION GAP 10 4-20 CALCIUM 8.3 (*) 8.5-10.1 (mg/dl) ALBUMIN 3.6 3.4-5.0 (g/dl) TOTAL PROTEIN 6.9 6.4-8.2 (g/dl) GLOBULIN (CALC) 3.3 ALBUMIN/GLOBULIN RATIO 1.1 BILIRUBIN TOTAL 0.1 <1.1 (mg/dl) ALKALINE PHOSPHATASE 103 50-136 (IU/L) AST 20 10-40 (IU/L) ALT 33 25-70 (IU/L) CBC WITH DIFFERENTIAL Component Value Range WBC 7.87 3.0-10.4 (x10E3) RBC 4.27 3.77-4.97 (x10E6) HEMOGLOBIN 13.9 11.9-15.0 (g/dL) HEMATOCRIT 40.2 34.4-43.6 (%) MCV 94.1 79-100 (fL) MCH 32.5 28-34 (pg) MCHC 34.5 32-35 (g/dL) RDW 14.4 11.5-15.1 (%) PLATELETS 190 148-408 (x10E3) MPV 8.3 7.4-10.6 (fL) NEUTROPHILS 54.5 43-73 (%) LYMPHOCYTES 36.9 19-47 (%) MONOCYTES 4.8 3-9 (%) EOSINOPHILS 3.3 0-6 (%) BASOPHILS 0.5 0-1.2 (%) NEUTROPHIL ABSOLUTE 4.29 1.3-7.6 (x10E3) LYMPHOCYTE ABSOLUTE 2.91 0.6-4.9 (x10E3) MONOCYTE ABSOLUTE 0.37 0.1-0.9 (x10E3) EOSINOPHIL ABSOLUTE 0.26 (*) 0.0-0.2 (x10E3) BASOPHILS ABSOLUTE 0.04 0-0.1 (x10E3) BRAIN NATRIURETIC PEPTIDE, BNP OR PROBNP Component Value Range BRAIN NATRIURETIC PEPTIDE 106 0-125 (pg/ml) MYOGLOBIN Component Value Range MYOGLOBIN, PLASMA 36 9-83 (ng/ml) TROPONIN Component Value Range TROPONIN I LESS THAN 0.04 0-0.4 (ng/ml) PROTIME-INR Component Value Range PROTIME 21.0 (*) 9.9-11.7 (Sec) INR 1.93 (*) 2.0-3.0 RADIOLOGY: XR CHEST PA OR AP ED Interpretation: neg EKG: normal EKG, no q waves or ST segment changes PROCEDURES MEDICAL DECISION MAKING AND PLAN OF CARE Last vitals BP 122/45 | Pulse 87 | Temp(Src) 98.2 F (36.8 C) (Tympanic) | R chel 15 | Ht 5' 3" (1.6 m) | Wt 126.1 kg | SpO2 99% CLINICAL IMPRESSION Encounter Diagnoses Code Name Primary? 786.59AC Atypical chest pain CASE DISCUSSED PATIENT COUNSELING Diagnostics reviewed and questions answered. Diagnosis, treatment options and p radha of care discussed with understanding verbalized. DISPOSITION, EDUCATION AND MEDICATION RECONCILIATION Medications reconciled. See after visit summary for patient education on discha rged patients. Exam is most consistent with chest wall pain but the patients inconsistent hist ory in regards to a recent OR although no cath or other study done, makes it frida sonable to complete a set of enzymes. AL SAW OPERATOR documented in this encounter Miscellaneous Notes * Scanned Form - Aok Scanning, Amb Physician - 04/18/2010 1:46 PM RADIAL SAW OPERATOR documented in this encounter Plan of Treatment Not on filedocumented as of this encounter Procedures Comments Procedure Name Priority Date/Time Associated Diag nosis EKG 12-LEAD Stat 04/19/2010 1:41 PM RADIAL SAW OPERATOR TELEMETRY REPORT 04/18/2010 3:10 PM RADIAL SAW OPERATOR TELEMETRY REPORT 04/18/2010 3:06 PM RADIAL SAW OPERATOR CARDIAC ENZYMES Stat 04/16/2010 10:45 AM RADIAL SAW OPERATOR TROPONIN Stat 04/16/2010 10:45 AM RADIAL SAW OPERATOR POC GLUCOSE Routine 04/16/2010 6:45 AM RADIAL SAW OPERATOR CARDIAC INTERPRETATION (6 Stat 04/16/2010 HR) 4:40 AM RADIAL SAW OPERATOR TROPONIN Stat 04/16/2010 4:40 AM RADIAL SAW OPERATOR CARDIAC INTERPRETATION (3 Stat 04/16/2010 HR) 1:45 AM RADIAL SAW OPERATOR TROPONIN Stat 04/16/2010 1:45 AM RADIAL SAW OPERATOR MYOGLOBIN Stat 04/16/2010 1:45 AM RADIAL SAW OPERATOR URINALYSIS W/REFLEX Routine 04/16/2010 MICROSCOPIC 12:45 AM RADIAL SAW OPERATOR XR CHEST PA OR AP 1 VW Stat 04/15/2010 10:57 PM RADIAL SAW OPERATOR CBC WITH DIFFERENTIAL Stat 04/15/2010 10:48 PM RADIAL SAW OPERATOR PROTIME-INR Stat 04/15/2010 10:48 PM RADIAL SAW OPERATOR TROPONIN Stat 04/15/2010 10:48 PM RADIAL SAW OPERATOR BRAIN NATRIURETIC Stat 04/15/2010 PEPTIDE, BNP OR PROBNP 10:48 PM RADIAL SAW OPERATOR MYOGLOBIN Stat 04/15/2010 10:48 PM RADIAL SAW OPERATOR COMPREHENSIVE METABOLIC Stat 04/15/2010 PANEL 10:48 PM RADIAL SAW OPERATOR documented in this encounter Results * EKG 12-LEAD (04/19/2010 1:41 PM RADIAL SAW OPERATOR) Narrative Performed At This result has an attachment that is n ot available. Procedure Note Sukhi Whipple MD - 04/18/2010 1:42 PM RADIAL SAW OPERATOR [facility]. [address] [place] [address]. [place], [place] [address] EKG JERALD VELAZQUEZ EF105 [id number] 04/15/10 at 2231. The rhythm is regular, sinus in origin with a rate of 87 beats per minute. Q waves are noted in limb lead III without abnormal Q waves in leads II or aVF. Compared with previous tracing dated November 23 2009, there are no major differences. Diagnosis: 1) Sinus rhythm, rate 87 beats per minute. 2) Borderline inferior limb lead Q waves, probably within normal limits. Dictated by S.V.W. Dictated by: EKG DD 04/18/10 TD 04/18/10/LRG EKG REPORT # [id number] ORDER # Transcriptions 04/19/2010 1:34 PM RADIAL SAW OPERATOR 04/19/2010 1:41 PM RADIAL SAW OPERATOR * TELEMETRY REPORT (04/18/2010 3:10 PM RADIAL SAW OPERATOR) Narrative Performed At This result has an attachment that is n ot available. Procedure Note 04/18/2010 3:10 PM RADIAL SAW OPERATOR * TELEMETRY REPORT (04/18/2010 3:06 PM RADIAL SAW OPERATOR) Narrative Performed At This result has an attachment that is n ot available. Procedure Note 04/18/2010 3:06 PM RADIAL SAW OPERATOR * TROPONIN (04/16/2010 10:45 AM RADIAL SAW OPERATOR) [facility] TROPONIN I Test not performedComment: 0 - 0.4 ng/ml [facility] ACCT#[id number], ,,,, [facility] LAB Specimen Performing Organization Address [facility] LABORATORY SERVICES CLIA# [id number] [place], [place] [address] - [address] CLIA# [id number] [facility] Milly BRITTON [address] * CARDIAC ENZYMES (04/16/2010 10:45 AM RADIAL SAW OPERATOR) [facility] INTERPRETATION See below. [facility] Comment: [facility] INTERPRETATION - 04/16/10 2132 [facility] Normal cardiac marker series through six hours, no evidence of acute myocardial infarction. Nasreen Nguyen. [place], [place] ACCT#[id number], ,,,, Specimen Blood specimen (specimen) Performing Organization Address [facility] [facility] CLIA# [id number] [place], [place] [address] CLIA# [id number] [facility] Milly BRITTON S [address] * POC GLUCOSE (04/16/2010 6:45 AM RADIAL SAW OPERATOR) [facility] POC GLUCOSE 107Comment: BlancaJim, 70 - 110 mg/dl [facility], Point of Care Site,,,, [facility] POC GLUCOSE 107 70 - 110 mg/dl [facility] LAB Specimen Capillary blood specimen (specimen) Performing Organization Address City/[facility] LAB[facility]ORY SERVICES CLIA# [id number] CLEMENTE RIOJAS [phone] - [facility] REBA [address] [place] [address] [place] CLIA# [id number] Milly RIOJAS [address] [address]BA [address] [place] [address] * CARDIAC INTERPRETATION (6 HR) (04/16/2010 4:40 AM RADIAL SAW OPERATOR) INTERPRETATION Test not performedComment: [facility] ACCT#[id number], ,,,, REBA LAB Specimen Performing Organization Address City/[facility] one [facility] LABORATORY SERVICES CLIA# [id number] CLEMENTE RIOJAS [facility] [phone] - [facility] REBA [address] [place] [address] [place] CLIA# [id number] Milly RIOJAS [address] [address] [address] [place] [address] * TROPONIN (04/16/2010 4:40 AM RADIAL SAW OPERATOR) TROPONIN I LESS THAN 0.04Comment: 0 - 0.4 ng/ml [facility] [place] ACCT#[id number], ,,,, REBA LAB Specimen Performing Organization Address [facility] one [facility] LABORATORY SERVICES CLIA# [id number] CLEMENTE RIOJAS [phone] [facility] REBA [address] [place] [address] [place] CLIA# [id number] Milly RIOJAS [address] REBA LAB [address] [place] [address] * CARDIAC INTERPRETATION (3 HR) (04/16/2010 1:45 AM RADIAL SAW OPERATOR) INTERPRETATION Test not performedComment: [facility] BRITTON [facility] [place] ACCT#[id number], ,,,, REBA LAB Specimen Performing Organization Address City/[facility] one [facility] LABORATORY SERVICES CLIA# [id number] CLEMENTE RIOJAS [phone] - [facility] REBA [address] [place] [address] [place] CLIA# [id number] Milly RIOJAS [address] RE[address] LAB [address] [place] [address] * TROPONIN (04/16/2010 1:45 AM RADIAL SAW OPERATOR) Pathologist [facility] [place] TROPONIN I LESS THAN 0.04Comment: 0 - 0.4 ng/ml [facility]ITALLTMERCY[facility] [place] ACCT#[id number], ,,,REBA LAB Specimen Performing Organization Address [facility] Ph one [facility] LABORATORY SERVICES CLIA# [id number] CLEMENTE RIOJAS [address] - [facility] REBA [address] [place] [address] [place] CLIA# [id number] Milly RIOJAS [address] [address] [address] [place] [address] * MYOGLOBIN (04/16/2010 1:45 AM RADIAL SAW OPERATOR) [facility] MYOGLOBIN, 35Comment: [facility] 9 - 83 ng/ml [facility] ACCT#[id number], ,,,, CENTER ALYSA BRITTON LAB Specimen Performing Organization Address City/[facility] Ph one [facility] LABORATORY SERVICES CLIA# [id number] CLEMENTE RIOJAS [address] - [facility] REBA [address] [place] [address] [place] CLIA# [id number] Milly RIOJAS [address] REBA LAB [address] [place] [address] * URINALYSIS (04/16/2010 12:45 AM RADIAL SAW OPERATOR) Pathologist [facility] [place] GLUCOSE UA Negative Negative mg/dl [facility] BRITTON LAB BILIRUBIN UA Negative Negative [facility] KETONES UA Negative Negative mg/dl [facility] BRITTON LAB SPECIFIC 1.017 [facility] UA [facility] BRIT[facility] LAB PH UA 8.0 [facility] LAB PROTEIN UA 20 Negative mg/dl [facility] BR[facility] LAB UROBILINOGEN UA <2.0 0.2 - 1.0 EU/dl [facility] BR[facility] LAB NITRITE UA Positive (H) Negative [facility] BLOOD UA Negative Negative [facility] LEUKOCYTE Small (H) Negative [facility] ESTERASE UA [facility] LAB COLOR UA Yellow [facility] CLARITY UA Cloudy [facility] BR[facility] LAB WBC UA 10-25 (H) 0 - 5 /HPF [facility] REBA LAB WBC CLUMPS 0-5 Negative /LPF [facility] BACTERIA UA Rare Negative /HPF [facility] MUCOUS, URINE Moderate /LPF [facility] AL[facility] BRITTON LAB AMORPHOUS 3+Comment: [facility]ITALCLEMENTE STRINGER Negative /HPF M [facility] ACCT#[id number], ,,,, CENTER [facility] REBA LAB Specimen Urine, suprapubic aspirate Performing Organization Address City/State/Zipcode Ph one Number [facility] LABORATORY SERVICES CLIA# [id number] CLEMENTE RIOJAS [address] - [facility] REBA [address] [facility] CLIA# [id number] [facility] Milly BRITTON [address] * XR CHEST PA OR AP (04/15/2010 10:57 PM RADIAL SAW OPERATOR) Specimen Impressions Performed At : Technically challenged examination as d escribed above without acute abnormality identified. If symptoms s hould persist a follow up 2 view examination maybe of benefit. Narrative Performed At Reason For Exam: Difficulty Breathing ONE VIEW: INDICATION: SHORTNESS OF AIR. Single view of the chest was obtained a nd is compared with 11/23/09. The cardiac size and mediastinal structures are similar in appearance. No definite pneumonia or congestive failur e, pleural effusion or pneumothorax is seen. Procedure Note Macho Barrios MD - 04/19/2010 11:45 AM RADIAL SAW OPERATOR Reason For Exam: Difficulty Breathing ONE VIEW: INDICATION: SHORTNESS OF AIR. Single view of the chest was obtained and is compared with 11/23/09. The cardiac size and mediastinal structures are similar in appearance. No definite pneumonia or congestive failure, pleural effusion or pneumothorax is seen. IMPRESSION: Technically challenged examination as described above without acute abnormality identified. If symptoms should persist a follow up 2 view examination maybe of benefit. * PROTIME-INR (04/15/2010 10:48 PM RADIAL SAW OPERATOR) PROTIME 21.0 (H) 9.9 - 11.7 Sec [facility] AL[facility] BRITTON LAB INR 1.93 (L)Comment: 2.0 - 3.0 [facility] SHAWANOCLEMENTE STR[facility] ACCT#[id number], ,,,, REBA LAB Specimen Blood specimen (specimen) Performing Organization Address City/[facility]erc[facility] Ph one [facility] LABORATORY SERVICES CLIA# [id number] CLEMENTE RIOJAS [address] - [facility] REBA [address] [place] [address] [place] CLIA# [id number] Milly RIOJAS S [address] [address] [place] [address] * TROPONIN (04/15/2010 10:48 PM RADIAL SAW OPERATOR) Pathologist [facility] [place] TROPONIN I LESS THAN 0.04Comment: 0 - 0.4 ng/ml [facility]ITALREBABEAUM[facility] [place] ACCT#[id number], ,,,, REBA LAB Specimen Performing Organization Address City/[facility] one [facility] LABORATORY SERVICES CLIA# [id number] CLEMENTE RIOJAS [address] [place] CLIA# [id number] Milly RIOJAS S [address] * MYOGLOBIN (04/15/2010 10:48 PM RADIAL SAW OPERATOR) Pathologist [facility] [place] MYOGLOBIN, 36Comment: [facility]ITAL[facility] BOSS 9 - 83 ng/ml [facility] ACCT#[id number], ,,,, CENTER [facility] REBA LAB Specimen Performing Organization Address City/[facility] Ph one [facility] LABORATORY SERVICES CLIA# [id number] CLEMENTE RIOJAS [address] [place] CLIA# [id number] Milly RIOJAS S [address] * BRAIN NATRIURETIC PEPTIDE, BNP OR PROBNP (04/15/2010 10:48 PM RADIAL SAW OPERATOR) Pathologist [facility] [place] BRAIN 106Comment: [facility]ITALCLEMENTE BOSS 0 - 125 pg/ml [facility] NATRIURETIC ACCT#[id number], ,,,, [facility] LAB Specimen Blood specimen (specimen) Performing Organization Address City/[facility] Centercode Ph one [facility] LABORATORY SERVICES CLIA# [id number] CLEMENTE RIOJAS [address] [place] [address] [facility] [place] CLIA# [id number] Milly RIOJAS S [address] REBA LAB [address] [facility] * CBC WITH DIFFERENTIAL (04/15/2010 10:48 PM RADIAL SAW OPERATOR) WBC 7.87 3.0 - 10.4 x10E3 [facility] ALYSA BRITTON LAB RBC 4.27 3.77 - 4.97 x10E6 [facility] AL[facility] BRITTON LAB HEMOGLOBIN 13.9 11.9 - 15.0 g/dL [facility] AL[facility] BRITTON LAB HEMATOCRIT 40.2 34.4 - 43.6 % [facility] BR[facility] LAB MCV 94.1 79 - 100 fL [facility] BRITTON LAB MCH 32.5 28 - 34 pg [facility] ALYSA REBA LAB MCHC 34.5 32 - 35 g/dL [facility] AL[facility] REBA LAB RDW 14.4 11.5 - 15.1 % [facility] BRITTON LAB PLATELETS 190 148 - 408 x10E3 [facility] BRITTON LAB MPV 8.3 7.4 - 10.6 [facility] ALYSA REBA LAB NEUTROPHILS 54.5 43 - 73 % [facility] BRITTON LAB LYMPHOCYTES 36.9 19 - 47 % [facility] REBA LAB MONOCYTES 4.8 3 - 9 % [facility] BRIT[facility] LAB EOSINOPHILS 3.3 0 - 6 % [facility] BRIT[facility] LAB BASOPHILS 0.5 0 - 1.2 % [facility] BRITTON LAB NEUTROPHIL 4.29 1.3 - 7.6 x10E3 [facility] AL[facility] BRITTON LAB LYMPHOCYTE 2.91 0.6 - 4.9 x10E3 [facility] AL[facility] BRITTON LAB MONOCYTE 0.37 0.1 - 0.9 x10E3 [facility] ALYSA REBA LAB EOSINOPHIL 0.26 (H) 0.0 - 0.2 x10E3 [facility] ALYSA BRITTON LAB BASOPHILS 0.04Comment: EUGENECLEMENTE BOSS 0 - 0.1 x10E3 [facility] ACCT#[id number], ,,,, CENTER ALYSA BRITTON LAB Specimen Blood specimen (specimen) Performing Organization Address City/State/Zipcode Ph one Number [facility] LABORATORY SERVICES CLIA# [id number] CLEMENTE RIOJAS [address] - ALYSA BRITTON [address] [place] [address] CLIA# [id number] Milly RIOJAS [address] REBA LAB [address] [place] [address] * COMPREHENSIVE METABOLIC PANEL (04/15/2010 10:48 PM RADIAL SAW OPERATOR) GLUCOSE 121 (H) 70 - 100 mg/dl [facility] LAB BUN 15.0 7 - 20 mg/dl [facility] LAB CREATININE 1.13 (H) 0.6 - 1.0 mg/dl [facility] LAB BUN/CREAT RATIO 13.3 10 - 20 [facility] ALYSA REBA LAB GFR 58 >60 ml/min [facility] LAB SODIUM 135 135 - 145 mmol/L [facility] LAB POTASSIUM 3.5 3.3 - 4.8 mmol/L [facility] LAB CHLORIDE 103 98 - 107 mmol/L [facility] LAB CO2 25.5 22 - 31 mmol/L [facility] REBA LAB ANION GAP 10 4 - 20 [facility] AL[facility] BRITTON LAB CALCIUM 8.3 (L) 8.5 - 10.1 mg/dl [facility] LAB ALBUMIN 3.6 3.4 - 5.0 g/dl [facility] LAB TOTAL PROTEIN 6.9 6.4 - 8.2 g/dl [facility] LAB GLOBULIN (CALC) 3.3 [facility] LAB ALBUMIN/GLOBULI 1.1 [facility] N R[facility]IO [facility] LAB BILIRUBIN TOTAL 0.1 <1.1 mg/dl [facility] AL[facility] BRITTON LAB ALKALINE 103 50 - 136 IU/L [facility] PHOSPHATASE [facility] LAB AST 20 10 - 40 IU/L [facility] LAB ALT 33Comment: [facility]ITALCLEMENTE BOSS 25 - 70 IU/L [facility] ACCT#[id number], ,,,, CENTER ALYSA BRITTON LAB Specimen Blood specimen (specimen) Performing Organization Address City/State/Zipcode Ph one Number [facility] LABORATORY SERVICES CLIA# [id number] CLEMENTE RIOJAS [address] - ALYSA BRITTON [address] [place] [address] [place] CLIA# [id number] Milly RIOJAS [address] REBA LAB [address] [facility] documented in this encounter Visit Diagnoses Diagnosis Atypical chest pain Other chest pain Type II or unspecified type diabetes me llitus without mention of complication, not stated as uncontrolled documented in this encounter Administered Medications Action Date Dose Rate Site Medication Order MAR Action 04/16/2010 6:14 AM RADIAL SAW OPERATOR 20 mg citalopram (CELEXA) tablet 20 mg Given 20 mg, Oral, DAILY EARLY, First dose on 04/16/10 at 0600, Until Discontinued, Routine, Previous Med: citalopram (CELEXA) 20 mg Oral tablet - Orig Sig - 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 , 04/16/2010 12:29 AM RADIAL SAW OPERATOR 50 mcg FENTANYL (PF) 50 MCG/ML INJECTION Given 1 dose, Starting 04/16/10 at 0027, Until 04/16/10 at 0029, Jonathan KRISHNA: Cabinet Override, 04/15/2010 11:18 PM RADIAL SAW OPERATOR 50 mcg Hand, Le ft fentaNYL PF (SUBLIMAZE) 50 mcg/mL Given injection 50 mcg 50 mcg, IV, ONE TIME ONLY, 1 dose, 04/15/10 at 2315, Routine 04/16/2010 6:13 AM RADIAL SAW OPERATOR 1 Puff fluticasone-salmeterol (ADVAIR DISKUS) Given 500-50 mcg/dose disk inhaler 1 Puff 1 Puff, Inhalation, EVERY 12 HOURS RESPIRATORY, First dose on 04/16/10 at 0030, Until Discontinued, Routine, Previous Med: fluticasone-salmeterol (ADVAIR DISKUS) 500-50 mcg/Dose Inhalation DsDv - Orig Sig - Take 1 Puf f by inhalation 2 times daily., 1 Puff Given 04/16/2010 1:22 AM RADIAL SAW OPERATOR 04/15/2010 11:57 PM RADIAL SAW OPERATOR 30 mg ketorolac (TORADOL) injection 30 mg Given 30 mg, IV, ONE TIME ONLY, 1 dose, 04/16/10 at 0000, Routine 04/16/2010 9:36 AM RADIAL SAW OPERATOR 3 mL sodium chloride 0.9 % flush injection 3 Given mL 3 mL, IV, TWO TIMES DAILY, First dose o n Sun04/15/10 at 2300, Until Discontinued, Routine 3 mL Hand, Left Given 04/15/2010 11:19 PM RADIAL SAW OPERATOR 3 mL Given 04/15/2010 10:43 PM RADIAL SAW OPERATOR SODIUM CHLORIDE 0.9 % SYRINGE 1 dose, Starting Sun04/15/10 at 2234, Until Sun04/15/10 at 2243, Juliet KRISHNA: Cabinet Override, documented in this encounter
--- OUTSIDE RECORDS SUMMARY | 2019-10-21 18:30 | XMS REPORT | Encounter Summary ---
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 URINE Stat 11/23/2009 5:04 PM CDT BLOOD GAS ARTERIAL Stat 11/23/2009 5:00 PM CDT documented in this encounter Results * EKG 12-LEAD (11/30/2009 7:46 AM CDT) Narrative Performed At This result has an attachment that is n ot available. Procedure Note Sukhi Whipple MD - 11/24/2009 1:50 PM CDT [facility]. [address] [place] [address] [place], [place] [address] EKG JERALD VELAZQUEZ [id number] 11/23/09 at 17:22. The rhythm is regular, sinus in origin with a rate of 96 beats per minute. T waves are flattened in lateral limb leads. Q waves are noted in limb lead III with smaller Q waves in AVF. Compared with previous tracing dated 08/10/09, complexes are similar. Diagnosis: 1) Sinus rhythm, rate 96 beats per minute. 2) Non-specific T wave changes. 3) Borderline inferior limb lead Q waves. Old inferior myocardial infarct cannot be completely ruled out. Dictated by S.SoyW. Dictated by: EKG DD 11/24/09 TD 11/24/09/LUZ ELENA EKG REPORT # [id number] ORDER # Transcriptions 11/25/2009 11:17 AM CDT 11/30/2009 7:46 AM CDT * TELEMETRY REPORT (11/25/2009 11:11 AM CDT) Narrative Performed At This result has an attachment that is n ot available. Procedure Note 11/25/2009 11:11 AM CDT * MISCELLANEOUS LAB TEST (11/24/2009 8:23 AM CDT) Specimen Specimen of unknown material (specimen) Narrative Performed At [facility] Serum drug screen chel for amphetamine, opiates ALYSA [facility] Transcriptions 12/07/2009 5:50 AM CDT Performing Organization Address City/State/Zipcode Ph one Number [facility] LABORATORY SERVICES CLIA# [id number] ALYSA BRITTON[place], [place] [address] - ALYSA BRITTON [address] [place] [address] CLIA# [id number] Milly RIOJAS [address] * CBC WITH DIFFERENTIAL (11/24/2009 5:00 AM CDT) WBC 7.47 3.0 - 10.4 x10E3 [facility] ALYSA [facility] RBC 4.25 3.77 - 4.97 x10E6 [facility] ALYSA BR[facility] HEMOGLOBIN 13.2 11.9 - 15.0 g/dL [facility] ALYSA BRITTON [facility] HEMATOCRIT 40.0 34.4 - 43.6 % [facility] LAB MCV 94.1 79 - 100 fL [facility] ALYSA BRITTON LAB MCH 31.0 28 - 34 pg [facility] ALYSA BRITTON [facility] MCHC 33.0 33 - 36 g/dL [facility] ALYSA BRITTON [facility] RDW 14.0 11.5 - 15.1 % [facility] ALYSA BRITTON LAB PLATELETS 171 148 - 408 x10E3 [facility] ALYSA BRITTON [facility] MPV 8.2 7.4 - 10.6 fL [facility] ALYSA BRITTON LAB NEUTROPHILS 50.2 43 - 73 % [facility] ALYSA BRITTON [facility] LYMPHOCYTES 41.8 19 - 47 % [facility] ALYSA BRITTON [facility] MONOCYTES 4.4 3 - 9 % [facility] ALYSA BR[facility] EOSINOPHILS 3.3 0 - 6 % [facility] ALYSA BR[facility] BASOPHILS 0.3 0 - 1.2 % [facility] ALYSA BRITTON [facility] NEUTROPHIL 3.75 1.3 - 7.6 x10E3 [facility] ALYSA BRITTON LAB LYMPHOCYTE 3.12 0.6 - 4.9 x10E3 [facility] ALYSA BRITTON LAB MONOCYTE 0.33 0.1 - 0.9 x10E3 [facility] ALYSA BRITTON LAB EOSINOPHIL 0.24 (H) 0.0 - 0.2 x10E3 [facility] ALYSA BRITTON LAB BASOPHILS 0.02Comment: [facility]OSPITALJaredCLEMENTE BOSS 0 - 0.1 x10E3 [facility] ACCT#[id number], ,,,, CENTER ALYSA BRITTON LAB Specimen Blood specimen (specimen) Performing Organization Address City/[facility] Ph one Number [facility] LABOR[facility]ORY [facility] CLIA# [id number] CLEMENTE RIOJAS [address] - ALYSA BRITTON [address] [place] [address] CLIA# [id number] ALYSA BRITTON S [address] * PROTIME-INR (11/24/2009 5:00 AM CDT) PROTIME 13.4 (H) 9.9 - 11.7 Sec [facility] ALYSA BRITTON LAB INR 1.24 (L)Comment: 2.0 - 3.0 [facility]ITALSIOMARAHEN[facility] [place] ACCT#[id number], ,,,REBA LAB Specimen Blood specimen (specimen) Performing Organization Address City/State/[facility]ly [facility] one [facility] LABORATORY SERVICES CLIA# [id number] ALYSA [place] [id number] [address]# [id number] Milly RIOJAS S [address] REBA [address] [place] [address] * TROPONIN (11/24/2009 5:00 AM CDT) Pathologist [facility] TROPONIN I LESS THAN 0.04Comment: 0 - 0.4 ng/ml [facility] ACCT#[id number], ,,,, REBA LAB Specimen Performing Organization Address [facility] one [facility] LABORATORY [facility] CLIA# [id number] ALYSA BRITTON [facility] [phone] - [address] CLIA# [id number] Milly RIOJAS S [address] * CARDIAC ENZYMES (11/24/2009 5:00 AM CDT) [facility] INTERPRETATION See below. [facility] Comment: CENTER [facility] INTERPRETATION - 11/24/09 0755 [facility] Normal cardiac marker series, no evidence of acute myocardial infarction. Nasreen Nguyen. [place], [place] ACCT#[id number], ,,,, Specimen Blood specimen (specimen) Performing Organization Address [facility] LABORATORY SERVICES CLIA# [id number] [place]SA [place] [address] - [address] CLIA# [id number] Milly RIOJAS S [address] REBA [address] [place] [address] * DRUG SCREEN, URINE (11/24/2009 3:40 AM CDT) AMPHETAMINE Negative [facility] QUAL, URINE CENTER ALYSA BRITTON LAB BARBITURATE Negative [facility] QUAL, URINE CENTER ALYSA BRITTON LAB BENZODIAZEPINE Negative [facility] QUAL, URINE CENTER ALYSA BRITTON LAB COCAINE METAB Negative [facility] QUAL URINE CENTER ALYSA BRITTON LAB CANNABINOIDS Positive [facility] QUAL, URINE CENTER ALYSA BRITTON LAB METHADONE QUAL, Negative [facility] URINE YELLOW JACKET ALYSA BRITTON LAB OPIATE QUAL, Negative [facility] URINE YELLOW JACKET ALYSA BRITTON LAB PCP QUAL, URINE Negative [facility] Comment: [facility] Chain of Custody Handling was REBA LAB not performed on this specimen. This screen will not meet medical-legal requirements. CUTOFF LIMITS Amphetamines 1000 ng/ml Barbiturates 200 ng/ml Benzodiazepines 200 ng/ml Cocaine metabolite 300 ng/ml Marijuana metabolites 50 ng/ml Methadone 300 ng/ml Opiates 2000 ng/ml PCP 25 ng/ml [facility] ACCT#[id number], ,,,, Specimen Urine, clean catch Performing Organization Address [facility] one [facility] LABORATORY SERVICES CLIA# [id number] [facility] REBA [facility] [phone] CLIA# [id number] [facility] Milly BRITTON [address] REBA LAB [address] [place] [address] * CARDIAC INTERPRETATION (6 HR) (11/23/2009 10:55 PM CDT) INTERPRETATION Test not performedComment: [facility]OREBAMERCY[facility] ACCT#[id number], ,,,, REBA LAB Specimen Performing Organization Address [facility] LABORATORY SERVICES CLIA# [id number] ALYSA BRITTON [facility] [phone] CLIA# [id number] [facility] Milly BRITTON S [address] REBA LAB [address] [place] [address] * TROPONIN (11/23/2009 10:55 PM CDT) TROPONIN I LESS THAN 0.04Comment: 0 - 0.4 ng/ml [facility] CENTERREBAMERCYONE [facility] ACCT#[id number], ,,,, REBA LAB Specimen Performing Organization Address [facility] LABORATORY SERVICES CLIA# [id number] ALYSA BRITTON [facility] [phone] CLIA# [id number] [facility] Milly BRITTON [address] REBA LAB [address] [place] [address] * CARDIAC INTERPRETATION (3 HR) (11/23/2009 8:00 PM CDT) INTERPRETATION Test not performed [facility] Comment: [facility]PITALREBAW[facility] LAB ACCT#[id number], ,,,, [facility], ,,,, Specimen Performing Organization Address City/[facility] Ph one [facility] LABORATORY SERVICES CLIA# [id number] CLEMENTE RIOJAS [address] - [facility] REBA [address] [place] [address] CLIA# [id number] ALYSA BRITTONMilly S [address] REBA LAB [address] [place] [address] * TROPONIN (11/23/2009 8:00 PM CDT) TROPONIN I LESS THAN 0.04Comment: 0 - 0.4 ng/ml [facility]ENTERREBAALEG[facility] ACCT#[id number], ,,,, REBA LAB Specimen Performing Organization Address [facility] one [facility] LABORATORY [facility] CLIA# [id number] CLEMENTE RIOJAS [address] [facility] REBA [address] [place] [address] CLIA# [id number] ALYSA BRITTONMilly S [address] REBA LAB [address] [place] [address] * MYOGLOBIN (11/23/2009 8:00 PM CDT) MYOGLOBIN, 43Comment: [facility] CAMPUSCLEMENTE BRITTON 9 - 83 ng/ml [facility] PLASMA ACCT#[id number], ,,,, [facility] REBA LAB Specimen Performing Organization Address City/[facility] one [facility] LABORATORY [facility] CLIA# [id number] CLEMENTE RIOJAS [address] [facility] REBA [address] [place] [address] [place] CLIA# [id number] ALYSA BRITTONMilly S [address] REBA LAB [address] [place] [address] * XR CHEST PA OR AP (11/23/2009 5:27 PM CDT) Specimen Narrative Performed At PORTABLE CHEST: Exam limited by large body habitus. C ardiac size similar to 10-02-08. Lower lungs not well demonstrated. Gr oss abnormality not identified. Suggest consideration for follow up PA and lateral chest exam due to large body habitus and portable technique. Procedure Note Macho Barrios MD - 11/24/2009 4:11 PM CDT PORTABLE CHEST: Exam limited by large body habitus. Cardiac size similar to 10-02-08. Lower lungs not well demonstrated. Gross abnormality not identified. Suggest consideration for follow up PA and lateral chest exam due to large body habitus and portable technique. * VALPROIC ACID LEVEL, TOTAL (11/23/2009 5:10 PM CDT) VALPROIC ACID 41.6 (L)Comment: 50 - 100 ug/ml [facility] TOTAL [facility] ACCT#[id number], ,,,, REBA LAB Specimen Blood specimen (specimen) Performing Organization Address [facility] one [facility] LABORATORY SERVICES CLIA# [id number] [facility] REBA [place] [address] CLIA# [id number] Milly RIOJAS [address] REBA LAB [address] [place] [address] * TROPONIN (11/23/2009 5:10 PM CDT) [facility] TROPONIN I LESS THAN 0.04Comment: 0 - 0.4 ng/ml [facility] CENTERREBAMERCYONE [facility] ACCT#[id number], ,,,, REBA LAB Specimen Performing Organization Address [facility] one [facility] LABORATORY SERVICES CLIA# [id number] [place] [address] CLIA# [id number] [facility] REBA [place] [address] * MYOGLOBIN (11/23/2009 5:10 PM CDT) [facility] MYOGLOBIN, 32Comment: [facility]USRE[facility]UT 9 - 83 ng/ml [facility] PLASMA ACCT#[id number], ,,,, CENTER [place] LAB Specimen Performing Organization Address [facility] Ph one [facility] LABORATORY SERVICES CLIA# [id number] [place], [place] [address] - [place] REBA [address] [place] [address] [place] CLIA# [id number] Milly RIOJAS [address] REBA LAB [address] [place] [address] * PROTIME-INR (11/23/2009 5:10 PM CDT) Pathologist [facility] PROTIME 12.2 (H) 9.9 - 11.7 Sec [facility] ALYSA BRITTON LAB INR 1.13 (L)Comment: 2.0 - 3.0 [facility] [place] ACCT#[id number], ,,,, REBA LAB Specimen Blood specimen (specimen) Performing Organization Address City/[facility] Ph one [facility] LABORATORY SERVICES CLIA# [id number] CLEMENTE RIOJAS [address] - ALYSA BRITTON [address] [place] [address] [place] CLIA# [id number] Milly RIOJAS [address] REBA LAB [address] [place] [address] * BRAIN NATRIURETIC PEPTIDE, BNP OR PROBNP (11/23/2009 5:10 PM CDT) [facility] BRAIN 77Comment: [facility] CAMPUSCLEMENTE BRITTON 0 - 125 pg/ml [facility] ACCT#[id number], ,,,, [facility] REBA LAB Specimen Blood specimen (specimen) Performing Organization Address City/[facility] Ph one [facility] LABORATORY SERVICES CLIA# [id number] CLEMENTE RIOJAS [address] - ALYSA REBA [address] [place] [address] [place] CLIA# [id number] Milly RIOJAS [address] REBA LAB [address] [place] [address] * COMPREHENSIVE METABOLIC PANEL (11/23/2009 5:10 PM CDT) [facility] GLUCOSE 121 (H) 70 - 100 mg/dl [facility] ALYSA BRITTON LAB BUN 16.0 7 - 20 mg/dl [facility] ALYSA BRITTON LAB CREATININE 0.86 0.6 - 1.0 mg/dl [facility] ALYSA BRITTON LAB BUN/CREAT RATIO 18.6 10 - 20 [facility] ALYSA BRITTON LAB GFR 79 >90 ml/min [facility] ALYSA BRITTON LAB SODIUM 142 135 - 145 mmol/L [facility] ALYSA BRITTON LAB POTASSIUM 3.6 3.3 - 4.8 mmol/L [facility] REBA LAB CHLORIDE 107 98 - 107 mmol/L [facility] ALYSA BRITTON LAB CO2 27.7 22 - 31 mmol/L [facility] ALYSA BRITTON LAB ANION GAP 11 4 - 20 [facility] ALYSA BRITTON LAB CALCIUM 8.4 (L) 8.5 - 10.1 mg/dl [facility] REBA LAB ALBUMIN 3.7 3.4 - 5.0 g/dl [facility] LAB TOTAL PROTEIN 7.6 6.4 - 8.2 g/dl [facility] REBA LAB GLOBULIN (CALC) 3.9 [facility] LAB ALBUMIN/GLOBULI 0.9 [facility] RATIO [facility] REBA LAB BILIRUBIN TOTAL 0.2 <1.1 mg/dl [facility] ALYSA BRITTON LAB ALKALINE 112 50 - 136 IU/L [facility] PHOSPHATASE [facility] AST 23 10 - 40 IU/L [facility] LAB ALT 59Comment: [facility]. [facility] HOSPITALCLEMENTE BOSS 25 - 70 IU/L [facility] ACCT#[id number], ,,,, CENTER ALYSA REBA LAB Specimen Blood specimen (specimen) Performing Organization Address City/State/Zipcode Ph one Number [facility] LABORATORY SERVICES CLIA# [id number] ALYSA [place] [address] - ALYSA BRITTON [address] [place] [address] CLIA# [id number] ALYSA BRITTON [place]ly S [address] * CBC WITH MANUAL DIFFERENTIAL (11/23/2009 5:10 PM CDT) EOSINOPHILS 1 0 - 8 %Manual [facility] ALYSA BRITTON LAB NEUTROPHILS, 69 (H) 30 - 68 %Manual [facility] ALYSA BRITTON LAB LYMPHOCYTES 24 14 - 50 %[facility] LAB MONOCYTE 6 0 - 11 %[facility] ALYSA BRITTON LAB PLATELET EST. Normal [facility] ALYSA BRITTON LAB WBC ESTIMATE Normal [facility] REBA LAB WBC 8.17 3.0 - 10.4 x10E3 [facility] LAB RBC 4.47 3.77 - 4.97 x10E6 [facility] ALYSA BRITTON LAB HEMOGLOBIN 13.8 11.9 - 15.0 g/dL [facility] LAB HEMATOCRIT 41.8 34.4 - 43.6 % [facility] ALYSA BRITTON LAB MCV 93.5 79 - 100 fL [facility] ALYSA BRITTON LAB MCH 30.8 28 - 34 pg [facility] ALYSA BRITTON LAB MCHC 32.9 (L) 33 - 36 g/dL [facility] ALYSA BRITTON LAB RDW 14.1 11.5 - 15.1 % [facility] ALYSA BRITTON LAB PLATELETS 176 148 - 408 x10E3 [facility] ALYSA BRITTON LAB MPV 7.9 7.4 - 10.6 fL [facility] ALYSA BRITTON LAB NEUTROPHILS 57.1 43 - 73 % [facility] REBA LAB LYMPHOCYTES 34.0 19 - 47 % [facility] ALYSA BRITTON LAB MONOCYTES 5.0 3 - 9 % [facility] ALYSA BRITTON LAB EOSINOPHILS 3.6 0 - 6 % [facility] ALYSA BRITTON LAB BASOPHILS 0.4 0 - 1.2 % [facility] ALYSA BRITTON LAB NEUTROPHIL 4.67 1.3 - 7.6 x10E3 [facility] ALYSA BRITTON LAB LYMPHOCYTE 2.77 0.6 - 4.9 x10E3 [facility] ALYSA BRITTON LAB MONOCYTE 0.40 0.1 - 0.9 x10E3 [facility] REBA LAB EOSINOPHIL 0.30 (H) 0.0 - 0.2 x10E3 [facility] REBA LAB BASOPHILS 0.03Comment: [facility] HOSPITALJaredCLEMENTE BOSS 0 - 0.1 x10E3 [facility] ACCT#[id number], ,,,, CENTER ALYSA BRITTON LAB Specimen Blood specimen (specimen) Performing Organization Address City/State/Zipcoks Ph one Number [facility] LABORATORY SERVICES CLIA# [id number] ALYSA BRITTON [place] [address] - ALYSA BRITTON [address] [place] [address] CLIA# [id number] Milly RIOJAS S [address] * DRUG SCREEN, URINE (11/23/2009 5:04 PM CDT) AMPHETAMINE Negative [facility] [employer] QUAL, URINE CENTER ALYSA BRITTON LAB BARBITURATE Negative [facility] QUAL, URINE CENTER ALYSA BRITTON LAB BENZODIAZEPINE Negative [facility] QUAL, URINE CENTER ALYSA BRITTON LAB COCAINE METAB Negative [facility] [employer] [facility] URINE CENTER ALYSA BRITTON LAB CANNABINOIDS Negative [facility] QUAL, URINE CENTER ALYSA BRITTON LAB METHADONE QUAL, Negative [facility] URINE YELLOW JACKET ALYSA REBA LAB OPIATE QUAL, Negative [facility] URINE YELLOW JACKET ALYSA REBA LAB PCP QUAL, URINE Negative [facility] Comment: [facility] Chain of Custody Handling was REBA LAB not performed on this specimen. This screen will not meet medical-legal requirements. CUTOFF LIMITS Amphetamines 1000 ng/ml Barbiturates 200 ng/ml Benzodiazepines 200 ng/ml Cocaine metabolite 300 ng/ml Marijuana metabolites 50 ng/ml Methadone 300 ng/ml Opiates 2000 ng/ml PCP 25 ng/ml [facility] HOSPITALSIOMARAUT ACCT#[id number], ,,,, Specimen Urine, clean catch Performing Organization Address [facility] Ph one Number [facility] LABORATORY SERVICES CLIA# [id number] CLEMENTE RIOJAS [address] - ALYSA BRITTON [address] [place] [address] CLIA# [id number] Milly R[place] S [address] * URINALYSIS WITH REFLEX CULTURE (11/23/2009 5:04 PM CDT) GLUCOSE UA Negative Negative mg/dl [facility] ALYSA BRITTON LAB BILIRUBIN UA Negative Negative [facility] ALYSA BRITTON LAB KETONES UA Negative Negative mg/dl [facility] ALYSA BRITTON LAB SPECIFIC 1.003 [facility] GRAVITY UA YELLOW JACKET ALYSA BRITTON LAB PH UA 5.0 [facility] ALYSA BRITTON LAB PROTEIN UA Negative Negative mg/dl [facility] ALYSA BRITTON LAB UROBILINOGEN UA <2.0 0.2 - 1.0 EU/dl [facility] ALYSA BRITTON LAB NITRITE UA Negative Negative [facility] ALYSA BRITTON LAB BLOOD UA Negative Negative [facility] ALYSA BRITTON LAB LEUKOCYTE Trace Negative [facility] ESTERASE UA YELLOW JACKET ALYAS BRITTON LAB COLOR UA Light Yellow [facility] ALYSA BRITTON LAB CLARITY UA Clear [facility] ALYSA BRITTON LAB WBC UA 2-5 0 - 5 /HPF [facility] ALYSA BRITTON LAB RBC UA 0-2Comment: [facility]OSPITALJaredCLEMENTE BOSS 0 - 5 /HPF [facility] ACCT#[id number], ,,,, CENTER ALYSA BRITTON LAB Specimen Urine, clean catch Performing Organization Address City/[facility] Corporationcode Ph one Number [facility] LABORATORY SERVICES CLIA# [id number] CLEMENTE RIOJAS 667 - ALYSA REBA [address] [place] [address] CLIA# [id number] Milly RIOJAS [address] * BLOOD GAS ARTERIAL (11/23/2009 5:00 PM CDT) PH ARTERIAL 7.35 7.35 - 7.45 [facility] ALYSA BRITTON LAB PO2 ARTERIAL 84 80 - 100 [facility] ALYSA BRITTON LAB PCO2 ARTERIAL 47 (H) 32 - 45 [facility] ALYSA BRITTON LAB HCO3 ARTERIAL 25.9 [facility] ALYSA BRITTON LAB TCO2, ARTERIAL 27.3 24 - 28 [facility] ALYSA BRITTON LAB BASE EXCESS ABG -0.1 [facility] ALYSA BRITTON LAB O2 SAT EST 96 90 - 97 % [facility] ALYSA BRITTON LAB ALLENS TEST OK [facility] ALYSA BRITTON LAB PUNC SITE RIGHT RADIALComment: [facility] HOSPITALCLEMENTE STRINGER [facility] ACCT#[id number], ,,,, REBA LAB Specimen Arterial blood specimen (specimen) Performing Organization Address City/State/[place] Ph one Number [facility] LABORATORY SERVICES CLIA# [id number] CLEMENTE RIOJAS [address] - ALYSA BRITTON [address] [place], [place] [address]IA# [id number] iMlly RIOJAS [id number] documented in this encounter Visit Diagnoses Diagnosis Change in mental status Altered mental status documented in this encounter Administered Medications Action Date Dose Rate Site Medication Order MAR Action 11/23/2009 6:26 PM CDT 10 mg amphetamine-dextroamphetamine (ADDERALL) Given tablet 10 mg 10 mg, Oral, ONE TIME ONLY, 1 dose, 11/23/09 at 1800, Routine 11/24/2009 8:25 AM CDT 10 mg amphetamine-dextroamphetamine (ADDERALL) Given tablet 10 mg 10 mg, Oral, DAILY, First dose on Sun11/24/09 at 0900, Until Discontinued, Routine, Previous Med: amphetamine-dextroamphetamine (ADDERALL ) 10 mg Oral tablet - Orig Sig - Take 1 Tab by mouth daily., 11/23/2009 8:40 PM CDT 80 mg atorvastatin (LIPITOR) tablet 80 mg Given 80 mg, Oral, DAILY LATE, First dose on Sun11/23/09 at 1915, Until Discontinued , Routine, Previous Med: atorvastatin (LIPITOR) 80 mg Oral tablet - Orig Sig - Take 80 mg by mouth Daily LATE. , 11/24/2009 8:15 AM CDT 500 mg divalproex delayed release (DEPAKOTE) Given tablet 500 mg 500 mg, Oral, THREE TIMES DAILY, First dose on Sun11/23/09 at 2100, Until Discontinued, Routine, Previous Med: DEPAKOTE 500 mg Oral TbEC - Orig Sig - Take 1 Tab by mouth 3 times daily. , 500 mg Given 11/23/2009 8:40 PM CDT 11/23/2009 8:40 PM CDT 60 mg DULoxetine (CYMBALTA) capsule 60 mg Given 60 mg, Oral, DAILY, First dose on Sun11/23/09 at 1915, Until Discontinued, Routine, Previous Med: duloxetine (CYMBALTA) 60 mg Oral CpDR - Orig Sig - Take 1 Cap by mouth daily. , 11/23/2009 4:52 PM CDT 0.5 mg flumazenil (ROMAZICON) injection 0.5 mg Given 0.5 mg, IV, ONE TIME ONLY, 1 dose, Sun11/23/09 at 1700, Routine FLUMAZENIL 0.1 MG/ML IV 1 dose, Starting Sun11/23/09 at 1648, Until Sun11/23/09 at 1652, Eliu KRISHNA: Cabinet Override, 11/24/2009 8:20 AM CDT 20 mg omeprazole (PRILOSEC) capsule 20 mg Given 20 mg, Oral, DAILY BEFORE BREAKFAST, First dose on Sun11/24/09 at 0730, Unti l Discontinued, Routine 11/24/2009 8:56 AM CDT 1 Tablet oxyCODONE-acetaminophen (PERCOCET) Given 10-325 mg per tablet 1 Tab 1 Tablet, Oral, EVERY 8 HOURS PRN, Starting Sun11/23/09 at 1910, Until Sun11/24/09 at 1307, Pain, Moderate, Routine, Previous Med: oxyCODONE-acetaminophen (PERCOCET) 10-325 mg Oral Tab - Orig Sig - Take 1 Tab by mouth every 8 hours as needed., 11/23/2009 6:26 PM CDT 2 Tablets oxyCODONE-acetaminophen (PERCOCET) 5-325 Given mg per tablet 2 Tab 2 Tablet, Oral, ONE TIME ONLY, 1 dose, Sun11/23/09 at 1815, Routine 11/24/2009 8:19 AM CDT 10 mEq potassium chloride (KLOR-CON,K-TAB) Given tablet 10 mEq 10 mEq, Oral, TWO TIMES DAILY, First dose on Sun11/24/09 at 0900, Until Discontinued, Routine 11/23/2009 8:40 PM CDT 10 mEq potassium chloride SR (K-DUR) tablet 10 Given mEq 10 mEq, Oral, TWO TIMES DAILY, First dose on Sun11/23/09 at 2100, Until Discontinued, Routine, Previous Med: potassium chloride SR (K-DUR) 10 mEq Oral tablet - Orig Sig - Take 1 Tab by mouth 2 times daily. , 11/24/2009 8:14 AM CDT 3 mL sodium chloride 0.9 % flush injection 3 Given mL 3 mL, IV, TWO TIMES DAILY, First dose o n Sun11/23/09 at 2100, Until Discontinued , Routine 3 mL Given 11/23/2009 8:40 PM CDT 11/24/2009 8:15 AM CDT 100 mg topiramate (TOPAMAX) tablet 100 mg Given 100 mg, Oral, TWO TIMES DAILY, First dose on Sun11/23/09 at 2100, Until Discontinued, Routine, Previous Med: topiramate (TOPAMAX) 100 mg Oral tablet - Orig Sig - Take 100 mg by mouth 2 times daily. , 100 mg Given 11/23/2009 8:41 PM CDT 11/23/2009 11:06 PM CDT 10 mg warfarin (COUMADIN) tablet 10 mg Given 10 mg, Oral, ONE TIME ONLY, 1 dose, Sun11/23/09 at 2300, Routine, Previous Med: warfarin (COUMADIN) 10 mg Oral tablet - Orig Sig - Take 10 mg by mouth every Sunday, Sunday, and Sunday., documented in this encounter
--- OUTSIDE RECORDS SUMMARY | 2019-10-21 18:30 | XMS REPORT | Encounter Summary ---
Author Author [facility] Organization [facility] Address Unknown Phone Unavailable Care Team Providers Care Accounting Manager Controller Name Role Phone Phong Stephens MD PCP Unavailable Robby Rajan ADULT PAROLE OFFICER Unavailable Reason for Visit * Reason Comments Seizure states she had seizures yes terday and today Encounter Details Care Team Description Date Type Department Phong Stephens MD NO ADDRESS ON FILE Bipolar Disorder, Unspecified; Seizure; Anxiety State 11/29/2009 Office Visit [facility] [address] [id number] Social History Date Tobacco [...] Signs Reading Time Taken Comments Vital Sign 124/78 11/29/2009 11:57 AM CDT Blood Pressure - - Pulse - - Temperature - - Respiratory Rate - - Oxygen Saturation - - Inhaled Oxygen Concentration - - Weight - - Height - - Body Mass Index documented in this encounter Progress Notes * Phong Stephens MD - 11/29/2009 12:08 PM CDT Subjective: Ayden Odom is a 39 y.o. [...] 788.20B Hyperlipidemia 272.4S Narcolepsy and Cataplexy 347.01E Current outpatient prescriptions ordered prior to encounter Medication Sig Dispense Refill oxyCODONE-acetaminophen (PERCOCET) 10-325 mg Oral Tab Take 1 Tab by mouth ev ana lilia 8 hours as needed. 90 Tab 0 amphetamine-dextroamphetamine (ADDERALL) 10 mg Oral tablet Take 1 Tab by andrew th daily. 30 Tab 0 ondansetron (ZOFRAN) 4 mg Oral Tab Take 2 Tabs by mouth every 6 hours as nee ded for Nausea. 10 Tab None LORazepam (ATIVAN) 1 mg Oral tablet Take 1 Tab by mouth 2 times daily. 60 T ab 0 Fesoterodine (TOVIAZ) 4 mg Oral Tb24 Take by mouth. One tab daily cyclobenzaprine (FLEXERIL) 10 mg Oral tablet Take 1 Tab by mouth 3 times cathleen ly as needed for Spasm. 10 Tab 0 atorvastatin (LIPITOR) 80 mg Oral tablet Take 80 mg by mouth Daily LATE. ropinirole (REQUIP) 1 mg Oral tablet Take 1 mg by mouth daily at bedtime. warfarin (COUMADIN) 10 mg Oral tablet Take 10 mg by mouth every Sunday, , and Sunday. warfarin (COUMADIN) 5 mg Oral tablet Take 5 mg by mouth. , , Sun & Sunday gabapentin (NEURONTIN) 300 mg Oral capsule Take 3 Caps by mouth daily at bed time. 90 Cap 5 topiramate (TOPAMAX) 100 mg Oral tablet Take 1 Tab by mouth 2 times daily. 60 Tab 5 albuterol-ipratropium (COMBIVENT) 103-18 mcg/Actuation Inhalation Aero Take 2 Puffs by inhalation every 6 hours. 1 Inhaler 5 potassium chloride SR (K-DUR) 10 mEq Oral tablet Take 1 Tab by mouth 2 times daily. 60 Tab 5 olanzapine (ZYPREXA) 5 mg Oral tablet Take 1 Tab by mouth daily at bedtime. 30 Tab 5 naproxen (NAPROSYN) 500 mg Oral tablet Take 1 Tab by mouth 2 times daily wit h meals. 60 Tab 5 levalbuterol HFA (XOPENEX HFA) 45 mcg/Actuation Inhalation HFAA Take 2 Puffs by inhalation every 6 hours. 1 Inhaler 5 furosemide (LASIX) 40 mg Oral tablet Take 1 Tab by mouth 2 times daily. 1 ta b Bid 60 Tab 5 duloxetine (CYMBALTA) 60 mg Oral CpDR Take 1 Cap by mouth daily. 30 Cap 5 fluticasone-salmeterol (ADVAIR DISKUS) 500-50 mcg/Dose Inhalation DsDv Take 1 Puff by inhalation 2 times daily. 1 Device 5 DEPAKOTE 500 mg Oral TbEC Take 1 Tab by mouth 3 times daily. 90 Tab 2 docusate sodium (COLACE) 100 mg Oral Cap Take 100 mg by mouth 2 times daily as needed for Constipation. esomeprazole (NEXIUM) 40 mg Oral CpDR Take 1 Cap by mouth daily before a naren l. 30 Cap 1 Oxygen-Air Delivery Systems Misc Leisa Take 2 L/min by inhalation daily at be [facility]. ACCU-CHEK ACTIVE CARE Misc Kit by See Admin Instructions route. Before meals , at bedtime, and as needed LOVAZA 1 gram Oral Cap Take 1 Gram by mouth 3 times daily. DUONEB IN Take by inhalation every 6 hours. HPI: Ms. Odom complains of the following (by systems): recent hosp with seizure, at least 2 recurrent "seizures" yesteday and again tod ay in waiting room. brief and no post ictal. increased stress and arguments wi th friends. is back home but meds are locked and controlled by care giv er. Review of Systems: ROS Denies all of the following: Headache Dizziness Chest pain Shortness of breath Bowel changes Bladder changes Pain in muscle or joints: chronic Exam/Objective: Normal Exam for Routine Visits: \\Blood pressure 124/78. General appearance: anxious, alert, no seizure activity and no true seizure even t though episode witnessed appearing, active, alert, cooperative, social, sadi lly nourished, and in ? acute distress Lungs: breath sounds equal, clear to auscultation bilaterally, no retractions, n o stridor, normal respiratory effort Heart: regular rate and rhythm, S1, S2 normal, no murmur, click, rub, gallop, or abnormal sounds. Abdomen: soft, non-tender. Bowel sounds normal. No masses, no organomegaly. Ac tive bowel sounds. Extremities: symmetrical edematous. Assessment and Plan: ASSESSMENT: Encounter Diagnoses Name Primary? Bipolar Disorder, Unspecified Seizure Anxiety State PLAN: No orders of the defined types were placed in this encounter. Will take neurotin 300 2 qam also Having lots of social stress and seems "seizures" may be more anxiety attacks Increase fluids Appropriate medications prescribed (see detailed AVS). Appropriate patient instructions provided (see detailed AVS). Follow-up as I have indicated. Medications and options explained to include common side effects. Understanding of medications, course, diagnosis, and expectations were expressed by patient/g uardian. documented in this encounter Plan of Treatment Not on filedocumented as of this encounter Visit Diagnoses Diagnosis Bipolar disorder, unspecified Seizure Other convulsions Anxiety state Anxiety state, unspecified documented in this encounter
--- OUTSIDE RECORDS SUMMARY | 2019-10-21 18:30 | XMS REPORT | Encounter Summary ---
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 [facility] AL[facility]SA [facility] Specimen Capillary blood specimen (specimen) Performing Organization Address [facility] one [facility] LABORATORY SERVICES CLIA# [id number] MIGUE RIOJAS 667 - [facility] TERRY [address] [place] [address] [place] CLIA# [id number] Milly RIOJAS S [address] [facility] [address] [place] [address] * POC GLUCOSE (12/01/2009 5:24 PM CDT) POC GLUCOSE 112 (H) 70 - 110 mg/dl [facility] Comment: [facility] ACCT#[id number], ,,,, [facility] [place], Point of Care [place],,,, POC GLUCOSE 112 (H) 70 - 110 mg/dl [facility] Specimen Performing Organization Address City/[facility] Ph one [facility] LABORATORY SERVICES CLIA# [id number] MIGUE RIOJAS 667 - [facility] TERRY [address] [place] [address] [place] CLIA# [id number] ALYSA STEWARTMilly S [address] [facility] [address] [facility] * ECHO COMPLETE (12/01/2009 2:45 PM CDT) Specimen Impressions Performed At : 1. Left ventricular hypertrophy by M- mode measurements. 2. Normal left ventricular contractio n. 3. Minimally dilated right ventricle. 4. Aortic valve sclerosis. 5. Mild tricuspid regurgitation. Narrative Performed At ECHOCARDIOGRAM: DATE OF REPORT: 12-01-09 M mode echocardiogram reveals normal in ternal diameter and left ventricle in diastole and systole. Septum and the posterior wall measures 1.73 and 1.28 cm. Right ventricle measures 3.1 4 cm. The left atrium and aortic root measures normal. 2D echocardiogram reveals fairly normal left ventricular contraction with an ejection fraction around 65%. Mitr al, aortic and tricuspid leaflets appear unremarkable. No pericardial e ffusion noted. Color flow and doppler study reveals mi ld tricuspid regurgitation with a pulmonary artery systolic pressure arou nd 20 mmHg. Procedure Note Ahmet Murrell MD - 12/23/2009 9:51 AM CDT ECHOCARDIOGRAM: DATE OF REPORT: 12-01-09 M mode echocardiogram reveals normal internal diameter and left ventricle in diastole and systole. Septum and the posterior wall measures 1.73 and 1.28 cm. Right ventricle measures 3.14 cm. The left atrium and aortic root measures normal. 2D echocardiogram reveals fairly normal left ventricular contraction with an ejection fraction around 65%. Mitral, aortic and tricuspid leaflets appear unremarkable. No pericardial effusion noted. Color flow and doppler study reveals mild tricuspid regurgitation with a pulmonary artery systolic pressure around 20 mmHg. IMPRESSION: 1. Left ventricular hypertrophy by M-mo de measurements. 2. Normal left ventricular contraction. 3. Minimally dilated right ventricle. 4. Aortic valve sclerosis. 5. Mild tricuspid regurgitation. * POC GLUCOSE (12/01/2009 11:07 AM CDT) POC GLUCOSE 115 (H)Comment: Jim Rain 70 - 110 mg/dl [facility] Migue Stewart, Point of Care CENTER ALYSA Aguilar,,,[facility] POC GLUCOSE 115 (H) 70 - 110 mg/dl [facility] ALYSA STEWART [facility] Specimen Capillary blood specimen (specimen) Performing Organization Address City/State/Zipcode Ph one Number [facility] LABORATORY SERVICES CLIA# [id number] MIGUE RIOJAS 667 01 - [facility] TERRY [address] [place], [place] [address]# [id number] Milly RIOJAS [address] * CT HEAD WO CONTRAST (12/01/2009 9:04 AM CDT) Specimen Impressions Performed At : Normal noncontrast CT of the head. Narrative Performed At CT HEAD WITHOUT CONTRAST History: Seizures. Exam is compared to prior exam of September 15, 2008. There are multiple axial images at 5 mm intervals through the brain. No contrast given. The ventricles and sulci are within nor mal limits. There is no mass or mass effect seen. There is no intracranial hemorr cortney. There is no evidence of acute infarction. No parenchymal abnormalities are seen. Procedure Note Donaldo Aleman MD - 12/01/2009 2:[address] HEAD WITHOUT CONTRAST History: Seizures. Exam is compared to prior exam of September 15, 2008. There are multiple axial images at 5 mm intervals through the brain. No contrast given. The ventricles and sulci are within normal limits. There is no mass or mass effect seen. There is no intracranial hemorrhage. There is no evidence of acute infarction. No parenchymal abnormalities are seen. IMPRESSION: Normal noncontrast CT of the head. * DRUG SCREEN, URINE (12/01/2009 8:10 AM CDT) AMPHETAMINE Positive [facility] BARBITURATE Negative [facility] QUAL, [facility] BENZODIAZEPINE Negative [facility] QUAL, URINE [facility] COCAINE METAB Negative [facility] QUAL [facility]INE [facility] CANNABINOIDS Negative [facility] QUAL, [facility]INE [facility] METHADONE QUAL, Negative [facility] OPIATE QUAL, Negative [facility] URINE [facility] LAB PCP QUAL, URINE Negative [facility] Comment: [facility] Chain of Custody Handling was [facility] not performed on this specimen. This screen will not meet medical-legal requirements. CUTOFF LIMITS Amphetamines 1000 ng/ml Barbiturates 200 ng/ml Benzodiazepines 200 ng/ml Cocaine metabolite 300 ng/ml Marijuana metabolites 50 ng/ml Methadone 300 ng/ml Opiates 2000 ng/ml PCP 25 ng/ml [facility] ACCT#[id number], ,,,, Specimen Urine specimen (specimen) Performing Organization Address City/State/[facility] Ph one Number [facility] LABORATORY SERVICES CLIA# [id number] MIGUE RIOJAS 667 01 ALYSA STEWART [address] [place] [address] ALYSA CLIA# [id number] ALYSA STEWART Milly Lauren [address] [facility] [address] [place] [address] * PROTIME-INR (12/01/2009 8:05 AM CDT) PROTIME 29.0 (H) 9.9 - 11.7 Sec [facility] ALYSA [facility]ART [facility] INR 2.66Comment: [facility] 2.0 - 3.0 [facility] ACCT#[id number], ,,,, CENTER [facility] Specimen Blood specimen (specimen) Performing Organization Address [facility] one [facility] LABORATORY SERVICES CLIA# [id number] MIGUE RIOJAS 667 ALYSA STEWART [address] [place] [address] ALYSA CLIA# [id number] Milly RIOJAS [address] [facility] [address] [place] [address] * BLOOD GAS ARTERIAL (11/30/2009 10:55 PM CDT) PH ARTERIAL 7.35 7.35 - 7.45 [facility] PO2 ARTERIAL 75 (L) 80 - 100 [facility] PCO2 ARTERIAL 51 (H) 32 - 45 [facility] HCO3 ARTERIAL 28.2 [facility] TCO2, ARTERIAL 29.8 (H) 24 - 28 [facility] BASE EXCESS ABG 1.8 [facility] O2 SAT EST 94 90 - 97 % [facility] ALLENS TEST UNKNOWN (H)Comment: PT [facility] ALYSA STEWART [facility] PUNC SITE RIGHT RADIALComment: [facility] ACCT#[id number], ,,,, [facility] Specimen Arterial blood specimen (specimen) Performing Organization Address City/[facility] Ph one Number [facility] LAB[facility] CLIA# [id number] MIGUE RIOJAS 667 ALYSA STEWART [address] [place] [address] [place] CLIA# [id number] Milly RIOJAS S [address] [facility] [address] [place] [address] * ETHANOL LEVEL (11/30/2009 10:45 PM CDT) ETHANOL LESS THAN 10 <10 mg/dl [facility] Comment: [facility] Chain of Custody Handling was [facility] not performed on this specimen. This test will not meet medical-legal requirements. [facility] ACCT#[id number], ,,,, Specimen Blood specimen (specimen) Performing Organization Address City/[facility] Ph one Number [facility] LABORATORY SERVICES CLIA# [id number] MIGUE RIOJAS 667 01 - [facility] TERRY [address] [place] [address] ALYSA CLIA# [id number] Milly RIOJAS S [address] [facility] [address] [place] [address] * VALPROIC ACID LEVEL, TOTAL (11/30/2009 10:03 PM CDT) VALPROIC ACID 83.7Comment: RICKIMIGUE 50 - 100 ug/ml [facility] TOTAL ACCT#[id number], ,,,, CENTER [facility] Specimen Blood specimen (specimen) Performing Organization Address City/[facility] Ph one Number [facility] CLIA# [id number] MIGUE RIOJAS 667 01 - ALYSA STEWART [address] [place] [address] [place] CLIA# [id number] Milly RIOJAS S [address] [facility] [address] [place] [address] * COMPREHENSIVE METABOLIC PANEL (11/30/2009 10:03 PM CDT) [facility] Signature GLUCOSE 141 (H) 70 - 100 mg/dl [facility] BUN 13.0 7 - 20 mg/dl [facility] CREATININE 1.02 (H) 0.6 - 1.0 mg/dl [facility] BUN/CREAT RATIO 12.7 10 - 20 [facility]SA [facility] GFR 65 >90 ml/min [facility] SODIUM 139 135 - 145 mmol/L [facility] POTASSIUM 3.5 3.3 - 4.8 mmol/L [facility] CHLORIDE 104 98 - 107 mmol/L [facility] CO2 26.9 22 - 31 mmol/L [facility] ANION GAP 12 4 - 20 [facility] CALCIUM 8.6 8.5 - 10.1 mg/dl [facility] ALYSA [facility] ALBUMIN 3.4 3.4 - 5.0 g/dl [facility] ALYSA [facility] TOTAL PROTEIN 6.9 6.4 - 8.2 g/dl [facility] AL[facility]SA [facility] GLOBULIN (CALC) 3.5 [facility] AL[facility] ALBUMIN/GLOBULI 1.0 [facility] AL[facility]SA [facility] BILIRUBIN TOTAL 0.2 <1.1 mg/dl [facility] AL[facility]SA [facility] ALKALINE 106 50 - 136 IU/L [facility] PHOSPHATASE [place] [facility] AST 14 10 - 40 IU/L [facility] LAB ALT 43Comment: [facility] 25 - 70 IU/L [facility] ACCT#[id number], ,,,, CENTER [facility] Specimen Blood specimen (specimen) Performing Organization Address City/State/[facility] Ph one Number [facility] CLIA# [id number] ALYSA TERRY, [place] 667 01 - ALYSA STEWART [address] [place] [address] CLIA# [id number] ALYSA STEWART S [address] * CBC WITH MANUAL DIFFERENTIAL (11/30/2009 10:03 PM CDT) EOSINOPHILS 3 0 - 8 %[facility] AL[facility]SA ST[facility] BANDS 1 0 - 22 %[facility] AL[facility] NEUTROPHILS, 56 30 - 68 %[facility] SEG [place] AL[facility]SA ST[facility] LYMPHOCYTES 30 14 - 50 %[facility] ALYSA STEWART [facility] MONOCYTE 6 0 - 11 %[facility] ATYPICAL 4 0 - 6 %[facility] LYMPHOCYTE [facility] LAB PLATELET EST. Normal [facility] ALYSA ST[facility]ART [facility] WBC ESTIMATE Normal [facility] ALYSA ST[facility] WBC 9.34 3.0 - 10.4 x10E3 [facility] AL[facility]SA [facility] RBC 4.45 3.77 - 4.97 x10E6 [facility] ALYSA ST[facility]ART [facility] HEMOGLOBIN 13.5 11.9 - 15.0 g/dL [facility] HEMATOCRIT 41.7 34.4 - 43.6 % [facility] AL[facility]SA [facility] MCV 93.6 79 - 100 fL [facility] AL[facility]SA [facility] MCH 30.3 28 - 34 pg [facility] AL[facility]SA [facility] MCHC 32.3 (L) 33 - 36 g/dL [facility] RDW 14.2 11.5 - 15.1 % [facility] ALYSA ST[facility] PLATELETS 194 148 - 408 x10E3 [facility] AL[facility] MPV 8.2 7.4 - 10.6 fL [facility] AL[facility]SA ST[facility] NEUTROPHILS 59.5 43 - 73 % [facility] ALYSA ST[facility] LYMPHOCYTES 32.7 19 - 47 % [facility] ALYSA [facility] MONOCYTES 4.8 3 - 9 % [facility] ALYSA [facility] EOSINOPHILS 2.8 0 - 6 % [facility] AL[facility]SA [facility] BASOPHILS 0.2 0 - 1.2 % [facility] ALYSA [facility] NEUTROPHIL 5.55 1.3 - 7.6 x10E3 [facility] ALYSA STEWART [facility] LYMPHOCYTE 3.05 0.6 - 4.9 x10E3 [facility] ALYSA ST[facility] MONOCYTE 0.45 0.1 - 0.9 x10E3 [facility] AL[facility]SA [facility] EOSINOPHIL 0.26 (H) 0.0 - 0.2 x10E3 [facility] ALYSA STEW[facility] BASOPHILS 0.02Comment: [facility] 0 - 0.1 x10E3 [facility] ACCT#[id number], ,,,, CENTER AL[facility]SA [facility] Specimen Blood specimen (specimen) Performing Organization Address City/State/Zipcond Ph one Number [facility] CLIA# [id number] MIGUE RIOJAS 667 01 - ALYSA STEWART [address] [place], [place] [address]IA# [id number] Milly RIOJAS [address] documented in this encounter Visit Diagnoses Diagnosis Mental status change Altered mental status Narcolepsy and cataplexy Narcolepsy with cataplexy Back pain Backache, unspecified Chronic pain Other chronic pain Sleep apnea Unspecified sleep apnea documented in this encounter Administered Medications Action Date Dose Rate Site Medication Order MAR Action 12/02/2009 8:05 AM CDT 5 mg amphetamine-dextroamphetamine (ADDERALL) Given tablet 5 mg 5 mg, Oral, DAILY, First dose (after last modification) on Sun12/01/09 at 0900, Until Discontinued, Routine 5 mg Given 12/01/2009 9:46 AM CDT 12/02/2009 8:00 AM CDT 500 mg divalproex delayed release (DEPAKOTE) Given tablet 500 mg 500 mg, Oral, THREE TIMES DAILY, First dose on Sun12/01/09 at 0900, Until Discontinued, Routine 500 mg Given 12/01/2009 9:02 PM CDT 500 mg Given 12/01/2009 2:57 PM CDT 12/01/2009 9:43 AM CDT 30 mg DULoxetine (CYMBALTA) capsule 30 mg Given 30 mg, Oral, DAILY, First dose (after last modification) on Sun12/01/09 at 0900, Until Discontinued, Routine 11/30/2009 11:04 PM CDT 20 mg famotidine PF (PEPCID) 20 mg/2 mL Given injection 20 mg 20 mg, IV, TWO TIMES DAILY, First dose on Sun11/30/09 at 2300, Until Discontinued, Routine 11/30/2009 9:51 PM CDT 0.5 mg flumazenil (ROMAZICON) injection 0.5 mg Given 0.5 mg, IV, ONE TIME ONLY, 1 dose, Sun11/30/09 at 2145, Routine 12/02/2009 8:02 AM CDT 1 Puff fluticasone-salmeterol (ADVAIR DISKUS) Given 500-50 mcg/Dose disk inhaler 1 Puff 1 Puff, Inhalation, EVERY 12 HOURS RESPIRATORY, First dose on Sun12/01/09 at 0900, Until Discontinued, Routine 1 Puff Given 12/01/2009 9:08 PM CDT 1 Puff Given 12/01/2009 9:46 AM CDT 12/02/2009 8:01 AM CDT 40 mg furosemide (LASIX) tablet 40 mg Given 40 mg, Oral, TWO TIMES DAILY, First dos e on Sun12/01/09 at 0900, Until Discontinued, Routine 40 mg Given 12/01/2009 2:57 PM CDT 40 mg Given 12/01/2009 9:43 AM CDT 12/02/2009 8:01 AM CDT 300 mg gabapentin (NEURONTIN) capsule 300 mg Given 300 mg, Oral, TWO TIMES DAILY, First dose on Sun12/01/09 at 0900, Until Discontinued, Routine 300 mg Given 12/01/2009 2:57 PM CDT 300 mg Given 12/01/2009 9:44 AM CDT 12/01/2009 9:02 PM CDT 900 mg gabapentin (NEURONTIN) capsule 900 mg Given 900 mg, Oral, DAILY AT BEDTIME, First dose on Sun12/01/09 at 2100, Until Discontinued, Routine 12/02/2009 5:59 AM CDT 2 Puffs levalbuterol HFA (XOPENEX HFA) 45 Given mcg/Actuation inhaler 2 Puff 2 Puff, Inhalation, EVERY 6 HOURS RESPIRATORY, First dose on Sun12/01/09 at 1000, Until Discontinued, Routine 2 Puffs Given 12/02/2009 12:23 AM CDT 2 Puffs Given 12/01/2009 5:25 PM CDT 11/30/2009 9:51 PM CDT 0.4 mg naloxone (NARCAN) 0.4 mg/mL injection Given 0.4 mg 0.4 mg, IV, ONE TIME ONLY, 1 dose, Sun11/30/09 at 2145, Routine 12/02/2009 8:01 AM CDT 500 mg naproxen (NAPROSYN) tablet 500 mg Given 500 mg, Oral, TWO TIMES DAILY WITH MEALS, First dose on Sun12/01/09 at 0800, Until Discontinued, Routine 500 mg Given 12/01/2009 5:24 PM CDT 500 mg Given 12/01/2009 9:46 AM CDT 12/01/2009 9:44 AM CDT 21 mg Arm, Lef t Upper nicotine (NICODERM CQ) 21 mg/24 hr Given topical patch 21 mg 21 mg, Transdermal, DAILY, First dose o n Sun12/01/09 at 0900, Until Discontinued , Routine 12/01/2009 9:03 PM CDT 5 mg olanzapine (ZYPREXA) tablet 5 mg Given 5 mg, Oral, DAILY AT BEDTIME, First dos e on Sun12/01/09 at 2100, Until Discontinued, Routine 12/02/2009 8:01 AM CDT 20 mg omeprazole (PRILOSEC) capsule 20 mg Given 20 mg, Oral, DAILY, First dose on 6/30/10 at 0815, Until Discontinued, Routine 20 mg Given 12/01/2009 9:44 AM CDT 12/02/2009 6:01 AM CDT 1 Tablet oxyCODONE-acetaminophen (PERCOCET) Given 10-325 mg per tablet 1 Tab 1 Tablet, Oral, EVERY 8 HOURS PRN, Starting Sun12/01/09 at 0741, Until Sun12/02/09 at 1343, Pain, Moderate, Routine 1 Tablet Given 12/01/2009 10:39 PM CDT 12/02/2009 8:00 AM CDT 10 mEq potassium chloride (KLOR-CON,K-TAB) Given tablet 10 mEq 10 mEq, Oral, TWO TIMES DAILY, First dose on Sun12/01/09 at 0900, Until Discontinued, Routine 10 mEq Given 12/01/2009 9:03 PM CDT 10 mEq Given 12/01/2009 9:45 AM CDT 12/01/2009 9:02 PM CDT 0.25 mg ropinirole (REQUIP) tablet 0.25 mg Given 0.25 mg, Oral, DAILY AT BEDTIME, First dose (after last modification) on Sun12/01/09 at 2100, Until Discontinued, Routine 12/02/2009 5:59 AM CDT 100 mL/hr sodium chloride 0.9 % infusion New Bag IV, at 100 mL/hr, CONTINUOUS, Starting Sun11/30/09 at 2300, Until Sun12/02/09 a t 1343, Routine 100 mL/hr New Bag 12/01/2009 7:57 PM CDT 100 mL/hr Rate Verify 12/01/2009 6:00 PM CDT 11/30/2009 9:52 PM CDT 5 mL SODIUM CHLORIDE 0.9 % SYRINGE Given 1 dose, Starting Sun11/30/09 at 2147, Until Sun11/30/09 at 2152, Splitter OMNICELL: Cabinet Override, 12/02/2009 8:01 AM CDT 100 mg topiramate (TOPAMAX) tablet 100 mg Given 100 mg, Oral, TWO TIMES DAILY, First dose on Sun12/01/09 at 0900, Until Discontinued, Routine 100 mg Given 12/01/2009 9:02 PM CDT 100 mg Given 12/01/2009 9:45 AM CDT 12/01/2009 5:24 PM CDT 10 mg warfarin (COUMADIN) tablet 10 mg Given 10 mg, Oral, SUNDAY,SUNDAY AND SUNDAY, First dose on Sun12/01/09 at 1700, Until Discontinued, Routine documented in this encounter
--- OUTSIDE RECORDS SUMMARY | 2019-10-21 18:30 | XMS REPORT | Encounter Summary ---
Author Author [facility] Organization [facility] Address Unknown Phone Unavailable Care Team Providers Care Automotive Product Engineer Name Role Phone Phong Stephens MD PCP Unavailable Robby Rajan SLINGER SEQUINS Unavailable Reason for Visit * Reason Comments Medication Refill Encounter Details Care Team Description Date Type Department Phong Stephens MD NO ADDRESS ON FILE 11/30/2009 [facility]ill [facility] [address] [id number] Social History Date Tobacco [...]
--- OUTSIDE RECORDS SUMMARY | 2019-10-21 18:31 | XMS REPORT | Encounter Summary ---
Author Author [facility] Organization [facility] Address Unknown Phone Unavailable Care Team Providers Care Floor Coverer Name Role Phone Phong Stephens MD PCP Unavailable Robby Rajan LAWN MOWER Unavailable Reason for Visit * Reason Comments Ear Check pt states her ears were ble eding this am Encounter Details Care Team Description Date Type Department Phong Stephens MD NO ADDRESS ON FILE Embolism and Thrombosis of Unspecified S ite (Primary Dx); Narcolepsy and Cataplexy; DM w/o Complication Type II; Hyperlipidemia 10/07/2009 Office Visit [facility] Primar y Care [address] [address] Social History Date Tobacco Use [...] Reading Time Taken Comments Vital Sign 124/78 10/07/2009 2:13 PM CDT Blood Pressure - - Pulse 37.3 C (99.1 F) 10/07/2009 2:13 PM CDT Temperature - - Respiratory Rate - - Oxygen Saturation - - Inhaled Oxygen Concentration - - Weight - - Height - - Body Mass Index documented in this encounter Progress Notes * Phong Stephens MD - 10/10/2009 9:11 PM CDT Subjective: Ayden Odom is a [...] prior to encounter Medication Sig Dispense Refill ondansetron (ZOFRAN ODT) [address] 1 Tab inside cheek every 8 fidelia rs as needed for Nausea for 10 days. 15 Tab 0 lorazepam (ATIVAN) 1 mg Oral tablet Take 1 Tab by mouth 2 times daily. 60 T ab 0 cyclobenzaprine (FLEXERIL) 10 mg Oral tablet Take 1 Tab by mouth 3 times cathleen ly as needed for Spasm. 10 Tab 0 oxycodone-acetaminophen (PERCOCET) 10-325 mg Oral Tab Take 1 Tab by mouth ev ana lilia 8 hours as needed. 90 Tab 0 atorvastatin (LIPITOR) 80 mg Oral tablet Take 80 mg by mouth Daily LATE. topiramate (TOPAMAX) 100 mg Oral tablet Take 100 mg by mouth 2 times daily. ropinirole (REQUIP) 1 mg Oral tablet Take [...] IN Take by inhalation every 6 hours. Component Value Date INR 2.23 10/07/2009 INR 2.48 09/07/2009 INR 4.48 08/10/2009 PROTIME 24.3 10/07/2009 PROTIME 27.0 09/07/2009 PROTIME 42.6 08/10/2009 HPI: Ms. Odom complains of the following (by systems): URI associated symtoms: congestion and c/o bleeding from both ears today. did use Q-tip to to clean them last noc. adderall is not successfully allowing her to stay awake as relate to narcolepsy. she is using adderall SR 30 mg daily. Review of Systems: ROS Chronically has almost all of the following: Headache Dizziness Chest pain Shortness of breath Bowel changes Bladder changes Pain in muscle or joints Exam/Objective: Normal Exam for Routine Visits: \Blood pressure 124/78, temperature 99.1 F (37 .3 C). General appearance: active, alert, cooperative, no distress, social, normally n ourished, and in no acute distress Lungs: breath sounds equal, clear to auscultation bilaterally, no retractions, n o stridor, normal respiratory effort Heart: regular rate and rhythm, S1, S2 normal, no murmur, click, rub, gallop, or abnormal sounds. Abdomen: soft, non-tender. Bowel sounds normal. No masses, no organomegaly. Ac tive bowel sounds. Extremities: symmetrical non edematous. EARS: bilat abrasions of canals. Tms nl. Assessment and Plan: ASSESSMENT: Encounter Diagnoses Name Primary? Embolism and Thrombosis of Unspecified Site Yes Narcolepsy and Cataplexy DM w/o Complication Type II Hyperlipidemia PLAN: Orders Placed This Encounter Protime & inr (monthly x 12) Cmp (3 months x 1) Lipid panel (3 months x 1) Hemoglobin a1c (3 months x 1) Amphetamine-dextroamphetamine (adderall) 10 mg oral tablet will do adderall 10mg not SR tid Still needs neuro consult. Appropriate medications prescribed (see detailed AVS). Appropriate patient instructions provided (see detailed AVS). Follow-up as I have indicated. Medications and options explained to include common side effects. Understanding of medications, course, diagnosis, and expectations were expressed by patient/g uardian. documented in this encounter Plan of Treatment Not on filedocumented as of this encounter Results * PROTIME-INR (10/07/2009 1:50 PM CDT) PROTIME 24.3 (H) 9.9 - 11.7 Sec [facility] INR 2.23Comment: [facility] 2.0 - 3.0 [facility] ACCT#[id number], ,,,, CENTER [facility] Specimen Blood specimen (specimen) Performing Organization Address City/State/Zipcode Ph one Number [facility] CLIA# [id number] ALYSA BRITTON [place] [address] - ALYSA BRITTON [address] [place] [address] CLIA# [id number] Milly RIOJAS [id number] [facility] [address] documented in this encounter Visit Diagnoses Diagnosis Embolism and thrombosis of unspecified site - Primary Narcolepsy and cataplexy Narcolepsy with cataplexy Type II or unspecified type diabetes me llitus without mention of complication, not stated as uncontrolled Hyperlipidemia Other and unspecified hyperlipidemia documented in this encounter
--- OUTSIDE RECORDS SUMMARY | 2019-10-21 18:31 | XMS REPORT | Encounter Summary ---
Author Author [facility] Organization [facility] Address Unknown Phone Unavailable Care Team Providers Care Water Pump Assembler Name Role Phone Phong Stephens MD PCP Unavailable Robby Rajan APRN Unavailable Phong Stephens MD PCP Unavailable Carlos Middleton PCP Lorraine Hathaway MD PCP [facility], External Provider PCP Unavailable Encounter Details Care Team Description Date Type Department Homar Christian MD [address] [place] [address] 10/11/2009 Telephone [facility] Operating Room [address] [place] [phone] Social History Date Tobacco Use Types [...]
--- OUTSIDE RECORDS SUMMARY | 2019-10-21 18:31 | XMS REPORT | Encounter Summary ---
Author Author [facility] Organization [facility] Address Unknown Phone Unavailable Care Team Providers Care Cloth Doubling Machine Operator Name Role Phone Phong Stephens MD PCP Unavailable Robby Rajan WAFER PRODUCTION WORKER Unavailable Reason for Visit * Reason Comments Medication Refill Encounter Details Care Team Description Date Type Department Phong Stephens MD NO ADDRESS ON FILE 10/29/2009 Refill [facility] Primsd y Care [address] [phone] Social History Date Tobacco Use [...]
--- OUTSIDE RECORDS SUMMARY | 2019-10-21 18:31 | XMS REPORT | Encounter Summary ---
Author Author [facility] Organization [facility] Address Unknown Phone Unavailable Care Team Providers Care Cmv Driver Name Role Phone Phong Stephens MD PCP Unavailable Robby Rajan STAKING PRESS OPERATOR Unavailable Reason for Visit * Reason Comments Results urine culture Encounter Details Care Team Description Date Type Department Jessica Christian Results (urine culture) 11/15/2009 Telephone [facility] Primar y Care [address] [phone] Social History Date Tobacco [...] * Telephone Encounter - Jessica Christian - 11/15/2009 2:[address] Stephens Macrobid bid x 10 days and Keflex 500 tid x 10days called to [facility] documented in this encounter Plan of Treatment Not on filedocumented as of this encounter Visit Diagnoses Not on filedocumented in this encounter
--- OUTSIDE RECORDS SUMMARY | 2019-10-21 18:31 | XMS REPORT | Encounter Summary ---
Author Author [facility] Organization [facility] Address Unknown Phone Unavailable Care Team Providers Care Broadcast Chief Engineer Name Role Phone Phong Stephens MD PCP Unavailable Robby Rajan GEM STONE CUTTER Unavailable Reason for Visit * Reason Comments Rash vomiting/pt states she has applied baby powder and lamisil to rash Encounter Details Care Team Description Date Type Department Yemi Jaquez MD [address] [facility] [address] [place] [address] UTI (Urinary Tract Infection) 11/12/2009 Emergency [facility] Emergency Department [address] [phone] Social History Date Tobacco Use [...] Signs Reading Time Taken Comments Vital Sign 111/66 11/12/2009 2:02 AM CDT Blood Pressure 83 11/12/2009 2:02 AM CDT Pulse 36.7 C (98.1 F) 11/12/2009 2:02 AM CDT Temperature 20 11/12/2009 2:02 AM CDT Respiratory Rate 97% 11/12/2009 2:02 AM CDT Oxygen Saturation - - Inhaled Oxygen Concentration 132.5 kg (292 lb) 11/12/2009 2:02 AM CDT Weight 161.3 cm (5' 3.5") 11/12/2009 2:02 AM CDT Height 50.91 11/12/2009 2:02 AM CDT Body Mass Index documented in this encounter Discharge Instructions * Instructions* Halie Leung RN - 11/12/2009 Follow up with primary dr as needed Medication as ordered Use ketoconazole 2 % cream for rash twice a day Push fluids * Attachments The following attachments cannot be sent through Care Everywhere.* URINARY TRACT INFECTION IN WOMEN: AFTER YOUR VISIT (IRISH) documented in this encounter Medications at Time of Discharge Start Date End Date Medication Sig Dispensed Refills 10/05/2007 Oxygen-Air Delivery Take 2 L/min 0 Systems Misc Leisa by inhalation daily at bedtime. 10/05/2007 ACCU-CHEK ACTIVE CARE by See Admin 0 Misc Kit Instructions route. Before meals, at bedtime, and as needed 11/12/2009 11/19/2009 trimethoprim-sulfamethoxa Take 1 Tab by 14 Tab 0 zole (BACTRIM DS) 800-160 mouth 2 times mg Oral tablet daily for 7 days. 10/29/2009 11/30/2009 LORazepam (ATIVAN) 1 mg Take 1 Tab by 60 Tab 0 Oral tablet mouth 2 times daily. 10/15/2009 11/19/2009 oxycodone-acetaminophen Take 1 Tab by 90 Tab 0 (PERCOCET) 10-325 mg Oral mouth every 8 TabIndications: Back pain hours as needed. 12/02/2009 Fesoterodine (TOVIAZ) 4 Take by 0 mg Oral Tb24 mouth. One tab daily 10/07/2009 11/15/2009 amphetamine-dextroampheta Take 1 Tab by 90 Tab 0 mine (ADDERALL) 10 mg mouth daily. Oral tabletIndications: Narcolepsy and cataplexy 09/07/2009 06/09/2010 cyclobenzaprine Take 1 Tab by [...] 6 hours. documented as of this encounter ED Notes * Kirstin Houston RN - 11/15/2009 10:44 AM CDT Culture report provided to Dr. Angelo Lopez nurse for follow-up. * Ari Stanley Physician - 11/12/2009 8:33 AM CDT * Halie Leung RN - 11/12/2009 2:05 AM CDT Pt states she has had heat rash, possible yeast rash under breasts and in groin. Pt also states she started vomiting today. documented in this encounter Plan of Treatment Not on filedocumented as of this encounter Procedures Comments Procedure Name Priority Date/Time Associated Diag nosis URINALYSIS WITH REFLEX Stat 11/12/2009 CULTURE 2:30 AM CDT CBC WITH DIFFERENTIAL Stat 11/12/2009 2:30 AM CDT URINE CULTURE Stat 11/12/2009 2:30 AM CDT COMPREHENSIVE METABOLIC Stat 11/12/2009 PANEL 2:30 AM CDT documented in this encounter Results * URINE CULTURE (11/12/2009 2:30 AM CDT) ORGANISM ESCHERICHIA COLI (A) [facility] URINE CULTURE COLONY COUNT: >100,000 * [facility] ORGANISM ENTEROCOCCUS SPECIES (A) [facility] URINE CULTURE COLONY COUNT: >100,000 * [facility] Specimen Antibiotic Method Susceptibility Organism AMIKACIN DOMENICA MCG/ML <=2: Susceptible Escherichia coli AMPICILLIN DOMENICA MCG/ML >=32: Resistant Escherichia coli AMPICILLIN/ SULBACTAM DOMENICA MCG/ML >=32: Resistant Escherichia coli CEFAZOLIN DOMENICA MCG/ML 8: Susceptible Escherichia coli CEFEPIME DOMENICA MCG/ML <=1: Susceptible Escherichia coli CEFTAZIDIME DOMENICA MCG/ML <=1: Susceptible Escherichia coli CEFTRIAXONE DOMENICA MCG/ML <=1: Susceptible Escherichia coli CIPROFLOXACIN DOMENICA MCG/ML >=4: Resistant Escherichia coli ERTAPENEM DOMENICA MCG/ML <=0.5: Susceptible Escherichia coli GENTAMICIN DOMENICA MCG/ML <=1: Susceptible Escherichia coli IMIPENEM DOMENICA MCG/ML <=1: Susceptible Escherichia coli LEVOFLOXACIN DOMENICA MCG/ML >=8: Resistant Escherichia coli NITROFURANTOIN DOMENICA MCG/ML 128: Resistant Escherichia coli PIPERACILLIN/ TAZOBACTAM DOMENICA MCG/ML <=4: Susceptible Escherichia coli TOBRAMYCIN DOMENICA MCG/ML <=1: Susceptible Escherichia coli TRIMETHOPRIM/ SULFAMETHOXAZOLE DOMENICA MCG/ML >=320: Resistant Escherichia coli CIPROFLOXACIN DOMENICA MCG/ML >=8: Resistant Enterococcus species LEVOFLOXACIN DOMENICA MCG/ML >=8: Resistant Enterococcus species NITROFURANTOIN DOMENICA MCG/ML <=16: Susceptible Enterococcus species PENICILLIN DOMENICA MCG/ML 4: Susceptible Enterococcus species TETRACYCLINE DOMENICA MCG/ML >=16: Resistant Enterococcus species VANCOMYCIN DOMENICA MCG/ML 1: Susceptible Enterococcus species Comment: CLEMENTE ROBISON ACCT#[id number], ,,,, Performing Organization Address City/State/Zipcode Ph one Number [facility] CLIA# [id number] [place] RIOJAS [address] - ALYSA BRITTON [address] [place] [address] CLIA# [id number] Milly RIOJAS [id number] * URINALYSIS WITH REFLEX CULTURE (11/12/2009 2:30 AM CDT) GLUCOSE UA Negative Negative mg/dl [facility] BILIRUBIN UA Negative Negative [facility] KETONES UA Negative Negative mg/dl [facility] SPECIFIC 1.014 [facility] GRAVITY UA [place] [facility] PH UA 5.5 [facility] PROTEIN UA 30 Negative mg/dl [facility] UROBILINOGEN UA <2.0 0.2 - 1.0 EU/dl [facility] NITRITE UA Positive (H) Negative [facility] BLOOD UA Trace Negative [facility] LEUKOCYTE Large (H) Negative [facility] ESTERASE UA [place] [facility] COLOR UA Yellow [facility] CLARITY UA Hazy [facility] WBC UA 25-50 (H) 0 - 5 /HPF [facility] RBC UA 5-10 (H) 0 - 5 /HPF [facility] BACTERIA UA 4+ (H) Negative /HPF [facility] MUCOUS, URINE Moderate /LPF [facility] EPITHELIAL 2+ squamous [facility] CELLS, URINE [place] [facility] HYALINE CAST 0-5 Negative /LPF [facility] COMMENT, URINE See Culture Report.Comment: EUGENE GARDNER [facility] CALDWELLJaredCLEMENTE BOSS [facility] ACCT#[id number], ,,,, [facility] Specimen Urine, clean catch Performing Organization Address City/State/[facility] [place] Ph one Number [facility] CLIA# [id number] CLE[place] RIOJAS [address] - ALYSA BRITTON [address] [place] [address] CLIA# [id number] Milly RIOJAS S [address] * COMPREHENSIVE METABOLIC PANEL (11/12/2009 2:30 AM CDT) GLUCOSE 108 (H) 70 - 100 mg/dl [facility] BUN 14.0 7 - 20 mg/dl [facility] CREATININE 0.82 0.6 - 1.0 mg/dl [facility] BUN/CREAT RATIO 17.1 10 - 20 [facility] GFR 83 >90 ml/min [facility] SODIUM 141 135 - 145 mmol/L [facility] POTASSIUM 4.4 3.3 - 4.8 mmol/L [facility] LAB CHLORIDE 110 (H) 98 - 107 mmol/L [facility] CO2 22.7 22 - 31 mmol/L [facility] LAB ANION GAP 13 4 - 20 [facility] CALCIUM 8.6 8.5 - 10.1 mg/dl [facility] ALBUMIN 3.4 3.4 - 5.0 g/dl [facility] LAB TOTAL PROTEIN 6.8 6.4 - 8.2 g/dl [facility] LAB GLOBULIN (CALC) 3.4 [facility] LAB ALBUMIN/GLOBULI 1.0 [facility] BILIRUBIN TOTAL 0.3 <1.1 mg/dl [facility] ALKALINE 121 50 - 136 IU/L [facility] PHOSPHATASE [facility] LAB AST 38 10 - 40 IU/L [facility] LAB ALT 59Comment: [facility]ITALCLEMENTE BOSS 25 - 70 IU/L [facility] ACCT#[id number], ,,,, CENTER [facility] Specimen Blood specimen (specimen) Performing Organization Address City/State/[facility] Ph one Number [facility] CLIA# [id number] ALYSA BRITTON [place] [address] - ALYSA BRITTON [address] [place] [address] CLIA# [id number] ALYSA BRITTON S [address] * CBC WITH DIFFERENTIAL (11/12/2009 2:30 AM CDT) WBC 8.61 3.0 - 10.4 x10E3 [facility] RBC 4.26 3.77 - 4.97 x10E6 [facility] HEMOGLOBIN 12.9 11.9 - 15.0 g/dL [facility] HEMATOCRIT 40.4 34.4 - 43.6 % [facility] MCV 94.8 79 - 100 fL [facility] MCH 30.4 28 - 34 pg [facility] LAB MCHC 32.0 (L) 33 - 36 g/dL [facility] RDW 14.7 11.5 - 15.1 % [facility] PLATELETS 175 148 - 408 x10E3 [facility] MPV 7.9 7.4 - 10.6 fL [facility] NEUTROPHILS 64.9 43 - 73 % [facility] LYMPHOCYTES 25.6 19 - 47 % [facility] MONOCYTES 4.7 3 - 9 % [facility] EOSINOPHILS 4.5 0 - 6 % [facility] BASOPHILS 0.3 0 - 1.2 % [facility] NEUTROPHIL 5.59 1.3 - 7.6 x10E3 [facility] LYMPHOCYTE 2.22 0.6 - 4.9 x10E3 [facility] MONOCYTE 0.40 0.1 - 0.9 x10E3 [facility] EOSINOPHIL 0.39 (H) 0.0 - 0.2 x10E3 [facility] BASOPHILS 0.02Comment: [facility]ENTERSIOMARAVT 0 - 0.1 x10E3 [facility] ACCT#[id number], ,,,, CENTER [facility] Specimen Blood specimen (specimen) Performing Organization Address City/State/Zipcosc Ph one Number [facility] CLIA# [id number] AL[facility]SA BR[facility] [place] [address] - ALYSA BRITTON [address] [place], [place] [address]IA# [id number] ALYSA REBA S [address] documented in this encounter Visit Diagnoses Diagnosis UTI (urinary tract infection) Urinary tract infection, site not speci fied documented in this encounter Administered Medications Action Date Dose Rate Site Medication Order MAR Action 11/12/2009 3:32 AM CDT 1,000 mg cefTRIAXone (ROCEPHIN) IVPB 1,000 mg Given 1,000 mg, IV, ONE TIME ONLY, 1 dose, Fr i 11/12/09 at 0330, Routine CEFTRIAXONE 1 GRAM SOLUTION FOR INJECTION 1 dose, Starting Sun11/12/09 at 0330, Until Sun11/12/09 at 0332, Madhu KRISHNA: Cabinet Override, 11/12/2009 2:30 AM CDT 8 mg ondansetron (ZOFRAN) 4 mg/2 mL injection Given 8 mg 8 mg, IV, ONE TIME ONLY, 1 dose, Sun11/12/09 at 0230, Routine 11/12/2009 2:30 AM CDT 3 mL sodium chloride 0.9 % flush injection 3 Given mL 3 mL, IV, TWO TIMES DAILY, First dose o n Sun11/12/09 at 0230, Until Discontinued , Routine 11/12/2009 2:30 AM CDT 250 mL/hr sodium chloride 0.9 % infusion New Bag IV, at 250 mL/hr, CONTINUOUS, Starting Sun11/12/09 at 0230, Until Sun11/12/09 at 0554, Routine documented in this encounter
--- OUTSIDE RECORDS SUMMARY | 2019-10-21 18:31 | XMS REPORT | Encounter Summary ---
Author Author [facility] Organization [facility] Address Unknown Phone Unavailable Care Team Providers Care Merchandise Collector Name Role Phone Phong Stephens MD PCP Unavailable Robby Rajan DATA INTEGRITY CONSULTANT Unavailable Reason for Visit * Reason Comments Rash Encounter Details Care Team Description Date Type Department Brittany Apple 10/12/2009 Telephone [facility] Primar [address] [address] Social History Date Tobacco Use [...] * Telephone Encounter - Brittany Apple - 10/12/2009 10:01 AM CDT Pt was txd in the emergency dept last night for a rash on her abdomen and given an antibiotic and topical cream. Pt states the rash hurts and in addition states her back has started hurting. Available appts x 2 offered to pt. One appt offer ed this am and one appt this pm. Pt declined both appts. Pt states she will call back if she can get transportation to an appt. Pt states there are times her pc will not bring her to the dr. I instructed pt that her transportation issue with her pc would need to be discussed with her pc. documented in this encounter Plan of Treatment Not on filedocumented as of this encounter Visit Diagnoses Not on filedocumented in this encounter
--- OUTSIDE RECORDS SUMMARY | 2019-10-21 18:31 | XMS REPORT | Encounter Summary ---
Author Author [facility] Organization [facility] Address Unknown Phone Unavailable Care Team Providers Care Whitesmith Name Role Phone Phong Stephens MD PCP Unavailable Robby Rajan ATHLETIC TEAM PHYSICIAN Unavailable Encounter Details Care Team Description Date Type Department Jessica Christian 10/05/2009 Orders Only [facility] Primar y Care [address] [id number] Social History Date Tobacco Use Types Packs/Day [...]
--- OUTSIDE RECORDS SUMMARY | 2019-10-21 18:31 | XMS REPORT | Encounter Summary ---
Author Author [facility] Organization [facility] Address Unknown Phone Unavailable Care Team Providers Care Corrections Nurse Name Role Phone Phong Stephens MD PCP Unavailable Robby Rajan RN ADMIT Unavailable Reason for Visit * Reason Comments Medication Question pharmacy didn't have 10mg a dderal had 5mg and gave #60 Encounter Details Care Team Description Date Type Department Jessica Christian Medication Question (pharmacy didn't hav e 10mg adderal had 5mg and gave #60) 10/08/2009 Telephone [facility] Primar y Care [place] [address] [place] [address] Social History Date Tobacco Use [...] * Telephone Encounter - Jessica Christian - 10/08/2009 2:22 PM CDT When she runs out of Adderal that she has new rx will be given for Adderal 10mg #90 one tid. documented in this encounter Plan of Treatment Not on filedocumented as of this encounter Visit Diagnoses Not on filedocumented in this encounter
--- OUTSIDE RECORDS SUMMARY | 2019-10-21 18:31 | XMS REPORT | Encounter Summary ---
Author Author [facility] Organization [facility] Address Unknown Phone Unavailable Care Team Providers Care Agent Based Modeler Name Role Phone Phong Stephens MD PCP Unavailable Robby Rajan APRN Unavailable Encounter Details Care Team Description Date Type Department [facility], Lab Schedule 10/07/2009 Hospital [facility] General Encounter Laboratory Services [address] [phone] Social History Date Tobacco Use [...] meals, at bedtime, and as needed 12/02/2009 Fesoterodine (TOVIAZ) 4 Take by 0 mg Oral Tb24 mouth. One tab daily 10/07/2009 11/15/2009 amphetamine-dextroampheta Take 1 Tab by 90 Tab 0 mine (ADDERALL) 10 mg mouth daily. Oral tabletIndications: Narcolepsy and cataplexy 10/01/2009 10/11/2009 ondansetron (ZOFRAN ODT) Place 1 Tab 15 Tab 0 8 mg Oral inside cheek TbDLIndications: every 8 hours Headache(784.0) as needed for Nausea for 10 days. 09/30/2009 10/29/2009 lorazepam (ATIVAN) 1 mg Take 1 Tab by 60 Tab 0 Oral tablet mouth 2 times daily. 09/07/2009 06/09/2010 cyclobenzaprine Take 1 Tab by 10 Tab 0 (FLEXERIL) 10 mg Oral mouth 3 times tabletIndications: Lumbar daily as back pain needed for Spasm. 08/30/2009 10/15/2009 oxycodone-acetaminophen Take 1 Tab by 90 Tab 0 (PERCOCET) 10-325 mg Oral mouth every 8 TabIndications: Back pain hours as needed. 12/02/2009 ropinirole (REQUIP) 1 mg Take 1 [...] 6 hours. documented as of this encounter Plan of Treatment Not on filedocumented as of this encounter Procedures Comments Procedure Name Priority Date/Time Associated Diag nosis PROTIME-INR Routine 10/07/2009 Embolism and Th rombosis 1:50 PM CDT of Unspecified Site documented in this encounter Results * PROTIME-INR (10/07/2009 1:50 PM CDT) PROTIME 24.3 (H) 9.9 - 11.[address] [facility] INR 2.23Comment: CLEMENTE ROBISON 2.0 - 3.0 [facility] ACCT#[id number], ,,,, CENTER [facility] Specimen Blood specimen (specimen) Performing Organization Address City/State/Zipcode Ph one Number [facility] CLIA# [id number] CLEMENTE RIOJAS [phone] - ALYSA BR[facility]TON [address] [place] [address] CLIA# [id number] Milly RIOJAS [address] documented in this encounter Visit Diagnoses Diagnosis Embolism and thrombosis of unspecified site documented in this encounter
--- OUTSIDE RECORDS SUMMARY | 2019-10-21 18:31 | XMS REPORT | Encounter Summary ---
Author Author [facility] Organization [facility] Address Unknown Phone Unavailable Care Team Providers Care Leno Sewer Name Role Phone Phong Stephens MD PCP Unavailable Robby Rajan DRESS DRAPER Unavailable Reason for Visit * Reason Comments Medication Refill Encounter Details Care Team Description Date Type Department Phong Stephens MD NO ADDRESS ON FILE Back Pain (Primary Dx) 10/15/2009 Refill [facility] [address] [phone] Social History Date Tobacco Use Types Packs/Day [...] as of this encounter Visit Diagnoses Diagnosis Back pain - Primary Backache, unspecified documented in this encounter
--- OUTSIDE RECORDS SUMMARY | 2019-10-21 18:31 | XMS REPORT | Encounter Summary ---
Author Author [facility] Organization [facility] Address Unknown Phone Unavailable Care Team Providers Care Research Chief Engineer Name Role Phone Phong Stephens MD PCP Unavailable Robby Rajan EQUITY MANAGER Unavailable Reason for Visit * Reason Comments Medication Refill Encounter Details Care Team Description Date Type Department Jessica Christian Narcolepsy and Cataplexy (Primary Dx) 11/15/2009 [facility]ill [facility] [address] [phone] Social History Date Tobacco Use Types Packs/Day [...] Telephone Encounter - Jessica Christian - 11/15/2009 12:[address] Stephens may refill Adderall 10mg daily. 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
--- OUTSIDE RECORDS SUMMARY | 2019-10-21 18:31 | XMS REPORT | Encounter Summary ---
Author Author [facility] Organization [facility] Address Unknown Phone Unavailable Care Team Providers Care Displayer Merchandise Name Role Phone Phong Stephens MD PCP Unavailable Robby Rajan STONEWORK TRACER Unavailable Reason for Visit * Reason Comments Medication Refill Encounter Details Care Team Description Date Type Department Rehana Valdivia Back Pain (Primary Dx) 11/19/2009 Refill [facility] Primar y Care [address] [phone] Social History Date Tobacco Use [...]
--- OUTSIDE RECORDS SUMMARY | 2019-10-21 18:31 | XMS REPORT | Encounter Summary ---
Author Author [facility] Organization [facility] Address Unknown Phone Unavailable Care Team Providers Care Woods Warden Name Role Phone Phong Stephens MD PCP Unavailable Robby Rajan EXTERIOR DOOR INSTALLER Unavailable Encounter Details Care Team Description Date Type Department Phong Stephens MD NO ADDRESS ON FILE 10/23/2009 [facility] [address] [place] [phone] Social History Date Tobacco Use Types Packs/Day [...]
--- OUTSIDE RECORDS SUMMARY | 2019-10-21 18:31 | XMS REPORT | Encounter Summary ---
Author Author [facility] Organization [facility] Address Unknown Phone Unavailable Care Team Providers Care Culinary Arts Teacher Name Role Phone Phong Stephens MD PCP Unavailable Robby Rajan COMMUNITY ASSISTANT Unavailable Reason for Visit * Reason Comments Back Pain Encounter Details Care Team Description Date Type Department Reggie Ramirez MD NO ADDRESS ON FILE Cellulitis; Back Pain 10/12/2009 Emergency [facility] Emergency Department [address] [phone] Social History Date Tobacco Use Types Packs/Day [...] Signs Reading Time Taken Comments Vital Sign 151/91 10/12/2009 12:15 AM CDT Blood Pressure 110 10/12/2009 12:15 AM CDT Pulse 36.8 C (98.2 F) 10/12/2009 12:15 AM CDT Temperature 20 10/12/2009 12:15 AM CDT Respiratory Rate 97% 10/12/2009 12:15 AM CDT Oxygen Saturation - - Inhaled Oxygen Concentration 135.6 kg (299 lb) 10/12/2009 12:15 AM CDT Weight 160 cm (5' 3") 10/12/2009 12:15 AM CDT Height 52.97 10/12/2009 12:15 AM CDT Body Mass Index documented in this encounter Medications at Time of Discharge Start Date End Date Medication Sig Dispensed Refills 10/05/2007 Oxygen-Air Delivery Take 2 L/min 0 Systems Misc Leisa by inhalation daily at bedtime. 10/05/2007 ACCU-CHEK ACTIVE CARE by See Admin 0 Misc Kit Instructions route. Before meals, at bedtime, and as needed 10/12/2009 11/12/2009 doxycycline hyclate Take 1 Tab by 19 Tab 1 (VIBRAMYCIN) 100 mg Oral mouth 2 times tablet daily. 12/02/2009 Fesoterodine (TOVIAZ) 4 Take by 0 mg Oral Tb24 mouth. One tab daily 10/07/2009 11/15/2009 amphetamine-dextroampheta Take 1 Tab by 90 Tab 0 mine (ADDERALL) 10 mg mouth daily. Oral tabletIndications: Narcolepsy and cataplexy 09/30/2009 10/29/2009 lorazepam (ATIVAN) 1 mg Take [...] ED Notes * Ari Stanley Physician - 10/12/2009 8:49 AM CDT * Halie Leung RN - 10/12/2009 12:32 AM CDT Pt states she able to take vibramycin, just causes nausea. Pt states she will t alcira with food. * Jim Ramirez MD - 10/12/2009 12:24 AM CDT HISTORY OF PRESENT ILLNESS Ayden Odom, a 39 y.o. female presents to the ED with a Chief Complaint o f Back Pain HPI Comments: Having area of redness and cellulitis without fever on lower abdom en. Also around cuticles with sensation of pressure. She has been opening sore s on abdomen with a pin. Also wanting to discuss chronic back pain. Patient is a 39 y.o. female presenting with back pain. Back Pain Pertinent negatives include no chest pain, no fever and no weight loss. REVIEW OF SYSTEMS Review of Systems Constitutional: Negative for fever, chills and weight loss. HENT: Negative for nosebleeds, congestion, sore throat and ear discharge. Eyes: Negative. Respiratory: Negative for cough and shortness of breath. Cardiovascular: Negative for chest pain. Gastrointestinal: Negative for nausea, vomiting and diarrhea. Musculoskeletal: Positive for back pain. Skin: Negative for rash. PAST MEDICAL HISTORY [...] SIGMOIDOSCOPY performed by MUKESH DOMÍNGUEZ at [facility] OR Pt denies relevant surgical history [...] 1 Tab by mouth daily at bedtime. OXYCODONE-ACETAMINOPHEN (PERCOCET) 10-325 MG ORAL TAB Take 1 Tab by mouth ev ana lilia 8 hours as needed. OXYGEN-AIR DELIVERY SYSTEMS MISC LEISA Take 2 L/min by inhalation daily at [facility]. POTASSIUM CHLORIDE SR (K-DUR) 10 MEQ ORAL TABLET Take 1 Tab by mouth 2 times daily. ROPINIROLE (REQUIP) 1 MG ORAL TABLET Take 1 mg by mouth daily at bedtime. TOPIRAMATE (TOPAMAX) 100 MG ORAL TABLET Take 1 Tab by mouth 2 times daily. TOPIRAMATE (TOPAMAX) 100 MG ORAL TABLET Take 100 mg by mouth 2 times daily. WARFARIN (COUMADIN) 10 MG ORAL TABLET Take 10 mg by mouth every Sunday, , and Sunday. WARFARIN (COUMADIN) 5 MG ORAL TABLET Take 5 mg by mouth. , , Sun & Sunday Medications Modified during this Encounter Medications Discontinued during this Encounter PHYSICAL EXAM Initial Vitals BP 10/12/09 0015 151/91 mmHg Pulse 10/12/09 0015 110 Resp 10/12/09 0015 20 Temp 10/12/09 0015 98.2 F (36.8 C) Temp src 10/12/09 0015 Oral SpO2 10/12/09 0015 97 % Physical Exam Constitutional: She is [...] time. Skin: Skin is warm and dry. Erythema and sores on panus of obese abdomen. And around cuticles of finge rs. MDM Coding Reviewed: previous chart, nursing note and vitals DIAGNOSTICS LAB: RADIOLOGY: EKG: PROCEDURES MEDICAL DECISION MAKING AND PLAN OF CARE Last vitals BP 151/91 | Pulse 110 | Temp(Src) 98.2 F (36.8 C) (Oral) | Resp 20 | Ht 5' 3" (1.6 m) | Wt 135.626 kg | SpO2 97% CLINICAL IMPRESSION Encounter Diagnoses Code Name Primary? 682.9N Cellulitis 724.5E Back Pain CASE DISCUSSED PATIENT COUNSELING Diagnostics reviewed and questions answered. Diagnosis, treatment options and p radha of care discussed with understanding verbalized. DISPOSITION, EDUCATION AND MEDICATION RECONCILIATION Medications reconciled. See after visit summary for patient education on discha rged patients. Vibramycin and Bactrim ds and follow up with Dr Stephens regarding cellulitis and her chronic back pain * Halie Leung RN - 10/12/2009 12:18 AM CDT Pt with multiple complaints form back, neck, and hand pain. Pt c/o leg and stom ach numbness and rash to lower abd. Pt states she had mrsa to abd a long time a go. Pt states she has been without oxygen for a few days due to no regulator, p t asked if hospital could lone her a regulator, I instructed pt we were unable t o lone equipment. Pt states she has used a needle to puncture abd to prove to p eople this area is numb. Lower abd noted to be red across with small pustule ar eas noted. documented in this encounter Plan of Treatment Not on filedocumented as of this encounter Visit Diagnoses Diagnosis Cellulitis Cellulitis and abscess of unspecified s ite Back pain Backache, unspecified documented in this encounter Administered Medications Action Date Dose Rate Site Medication Order MAR Action 10/12/2009 12:28 AM CDT 100 mg doxycycline hyclate (VIBRAMYCIN) capsule Given 100 mg 100 mg, Oral, EVERY 12 HOURS (BlD), First dose on Sun10/12/09 at 0030, Unti l Discontinued, Routine 10/12/2009 12:28 AM CDT 1 Tablet trimethoprim-sulfamethoxazole (BACTRIM Given DS) 800-160 mg per tablet 1 Tab 1 Tablet, Oral, ONE TIME ONLY, 1 dose, Sun10/12/09 at 0030, Routine documented in this encounter
--- OUTSIDE RECORDS SUMMARY | 2019-10-21 18:31 | XMS REPORT | Encounter Summary ---
Author Author [facility] Organization [facility] Address Unknown Phone Unavailable Care Team Providers Care County Administrator Name Role Phone Phong Stephens MD PCP Unavailable Robby Rajan TRIPLE VALVE TESTER Unavailable Encounter Details Care Team Description Date Type Department Phong Stephens MD NO ADDRESS ON FILE 10/07/2009 Anti-coag visit [facility] Primar [address] [phone] Social History Date Tobacco Use [...]
--- OUTSIDE RECORDS SUMMARY | 2019-10-21 18:32 | XMS REPORT | Encounter Summary ---
Author Author [facility] Organization [facility] Address Unknown Phone Unavailable Care Team Providers Care Contact Center Associate Name Role Phone Phong Stephens MD PCP Unavailable Robby Rajan CORDUROY BRUSHER OPERATOR Unavailable Reason for Visit * Reason Comments Headache She has been battling this headache for a week now. It has only gotten worse. Vomiting Diarrhea Neck Pain Encounter Details Care Team Description Date Type Department [place] [facility] [address] [place], [place] [phone] Headache (Primary Dx) 10/01/2009 Office Visit [facility] [address] [place] [phone] Social History Date Tobacco Use [...] Comments Vital Sign - - Blood Pressure 97 10/01/2009 9:47 PM CDT Pulse 37.3 C (99.2 F) 10/01/2009 9:47 PM CDT Temperature - - Respiratory Rate 97% 10/01/2009 9:47 PM CDT Oxygen Saturation - - Inhaled Oxygen Concentration - - Weight - - Height - - Body Mass Index documented in this encounter Progress Notes * Willis [place] PA - 10/05/2009 12:10 PM CDT SUBJECTIVE: Ayden Odom is a 39 y.o. female who complains of headaches for 3 days. De scription of pain: throbbing pain. Duration of individual headaches: 3 days, olegario quency daily. Associated symptoms: nausea. Pain relief: unable to obtain relief with OTC meds. Precipitating factors: patient is aware of none. She denies a his tory of recent head injury. Prior neurological history: negative for no neurological problems. Neurologic Review of Systems - no TIA or stroke-like symptoms. Current outpatient prescriptions Medication Sig Dispense Refill ondansetron (ZOFRAN ODT) [address] 1 Tab inside cheek every 8 fidelia rs as needed for Nausea for 10 days. 15 Tab 0 lorazepam (ATIVAN) 1 mg Oral tablet Take 1 Tab by mouth 2 times daily. 60 T ab 0 predniSONE (DELTASONE) 10 mg Oral tablet Take 1 Tab by mouth. 4,3,2,1 taper 10 Tab 0 amoxicillin (AMOXIL) 500 mg Oral Tab Take 1 Tab by mouth every 8 hours. 30 Tab 0 cyclobenzaprine (FLEXERIL) 10 mg Oral tablet Take 1 Tab by mouth 3 times cathleen ly as needed for Spasm. 10 Tab 0 oxycodone-acetaminophen (PERCOCET) 10-325 mg Oral Tab Take 1 Tab by mouth ev ana lilia 8 hours as needed. 90 Tab 0 amphetamine-dextroamphetamine SR 24 hour (ADDERALL XR) 25 mg Oral capsule Ta ke 1 Cap by mouth daily beauty shop manager. 30 Cap 0 amitriptyline (ELAVIL) 50 mg Oral tablet Take 50 mg by mouth daily at bedtim e. atorvastatin (LIPITOR) 80 mg Oral tablet Take [...] 2 times daily as needed for Constipation. zolpidem (AMBIEN) 10 mg Oral Tab Take 1 Tab by mouth nightly as needed for I nsomnia. 30 Tab 2 Sumatriptan-Naproxen (TREXIMET) 85-500 mg Oral tablet Take 1 Tab by mouth on e time as needed for Migraine for 1 dose. May repeat dose once after 2 hr; MAX 2 tablets in 24 hr 9 Tab 0 promethazine (PHENERGAN) 25 mg Oral Tab Take 1 Tab by mouth every 6 hours as needed for Nausea. 6 Tab None ranitidine HCl (ZANTAC) 150 mg Oral Cap Take 1 Cap by mouth 2 times daily. 60 Cap 0 esomeprazole (NEXIUM) 40 mg Oral CpDR Take [...] IN Take by inhalation every 6 hours. OBJECTIVE: Appearance: oriented to person, place, and time. Neurological Exam: alert, oriented, normal speech, no focal findings or movement disorder noted, neck supple without rigidity, cranial nerves II through XII int act, DTR's normal and symmetric, motor and sensory grossly normal bilaterally, n ormal muscle tone, no tremors, strength 5/5. ASSESSMENT: migraine - classic. PLAN: Recommendations: lie in darkened room and apply cold packs prn for pain, side ef fect profile discussed in detail, asked to keep headache diary and patient reass ured that neurodiagnostic workup not indicated from benign H & P. See orders for this visit as documented in the electronic medical record. documented in this encounter Plan of Treatment Not on filedocumented as of this encounter Visit Diagnoses Diagnosis Headache(784.0) - Primary Headache documented in this encounter
--- OUTSIDE RECORDS SUMMARY | 2019-10-21 18:32 | XMS REPORT | Encounter Summary ---
Author Author [facility] Organization [facility] Address Unknown Phone Unavailable Care Team Providers Care Veterinary Nurse Name Role Phone Phong Stephens MD PCP Unavailable Encounter Details Care Team Description Date Type Department Brittany Apple 09/08/2009 Anti-coag visit [facility] Primar y Care [place] [address] [place] [phone] Social History Date Tobacco Use Types Packs/Day [...]
--- OUTSIDE RECORDS SUMMARY | 2019-10-21 18:32 | XMS REPORT | Encounter Summary ---
Author Author [facility] Organization [facility] Address Unknown Phone Unavailable Care Team Providers Care Language Instructor Name Role Phone Phong Stephens MD PCP Unavailable Reason for Visit * Reason Comments Hip Pain rt hip, left knee and lumba r back pain- pt states she tripped 1 week ago and fell today Sore rt side of abdomen Encounter Details Care Team Description Date Type Department Phong Stephens MD NO ADDRESS ON FILE Lumbar Back Pain; Right Hip Pain; Left Knee Pain; DM w/o Complication Type II 09/07/2009 Office Visit [facility] Primar y Care [place] [address] [place] [phone] Social History Date Tobacco Use [...] Signs Reading Time Taken Comments Vital Sign 128/74 09/07/2009 5:04 PM CDT Blood Pressure - - Pulse - - Temperature - - Respiratory Rate - - Oxygen Saturation - - Inhaled Oxygen Concentration 146.1 kg (322 lb) 09/07/2009 5:04 PM CDT Weight - - Height 57.04 08/23/2009 10:33 AM CDT Body Mass Index documented in this encounter Progress Notes * Phong Stephens MD - 09/07/2009 9:55 PM CDT Subjective: Ayden Odom is a [...] Apnea 780.57C Urinary Retention 788.20B Hyperlipidemia 272.4S Current outpatient prescriptions prior to encounter Medication Sig Dispense Refill lorazepam (ATIVAN) 1 mg Oral tablet Take 1 Tab by mouth 2 times daily. 60 T ab 0 oxycodone-acetaminophen (PERCOCET) 10-325 mg Oral Tab Take 1 Tab by mouth ev ana lilia 8 hours as needed. 90 Tab 0 amphetamine-dextroamphetamine SR 24 hour (ADDERALL XR) 25 mg Oral capsule Ta ke 1 Cap by mouth daily cardiac tech. 30 Cap 0 amitriptyline (ELAVIL) 50 mg [...] 2 L/min [facility] ACCU-CHEK ACTIVE CARE Misc Kit by See Admin Instructions route. Before meals , at bedtime, and as needed LOVAZA 1 gram Oral Cap Take 1 Gram by mouth 3 times daily. DUONEB IN Take by inhalation every 6 hours. HPI: Ms. Odom complains of the following (by systems): c/o several days increased pain low back, R hip an d L knee post slipping and tw isting and then falling 2 days ago. no LOC and no laat deficits or radicular dyan n. Review of Systems: ROS Denies all of the following: Headache Dizziness Chest pain Shortness of breath Bowel changes Bladder changes Pain in muscle or joints Exam/Objective: Normal Exam for Routine Visits: \Blood pressure 128/74, weight 322 lb (146.058 k g), last menstrual period Hysterectomy. General appearance: chronic ill and obese appearing, active, alert, cooperative, social, normally nourished, and in mild acute distress Extremities: symmetrical non edematous. Tender L knee and R hip. Also tender low lumbar back. Assessment and Plan: ASSESSMENT: Encounter Diagnoses Name Primary? Lumbar Back Pain Right Hip Pain Left Knee Pain DM w/o Complication Type II PLAN: Orders Placed This Encounter Hemoglobin a1c Cyclobenzaprine 10 mg tab did not insist increased narcotics Appropriate medications prescribed (see detailed AVS). Appropriate patient instructions provided (see detailed AVS). Follow-up as I have indicated. Medications and options explained to include common side effects. Understanding of medications, course, diagnosis, and expectations were expressed by patient/g uardian. documented in this encounter Plan of Treatment Not on filedocumented as of this encounter Results * HEMOGLOBIN A1C (09/07/2009 5:36 PM CDT) HEMOGLOBIN A1C 6.3 (H) 0 - 6.0 % [facility] GLUCOSE, MEAN 134Comment: [place] mg/dl [facility] BLOOD ACCT#[id number], ,,,, CENTER [facility] Specimen Blood specimen (specimen) Performing Organization Address City/State/Zipcode Ph one Number INTERFACE SYSTEM [facility] ALYSA GERARDO# [id number] Milly RIOJAS [address] [facility] [address] [facility] documented in this encounter Visit Diagnoses Diagnosis Lumbar back pain Lumbago Right hip pain Pain in joint, pelvic region and thigh Left knee pain Pain in joint, lower leg Type II or unspecified type diabetes me llitus without mention of complication, not stated as uncontrolled documented in this encounter
--- OUTSIDE RECORDS SUMMARY | 2019-10-21 18:32 | XMS REPORT | Encounter Summary ---
Author Author [facility] Organization [facility] Address Unknown Phone Unavailable Care Team Providers Care Liquor Tester Name Role Phone Phong Stephens MD PCP Unavailable Reason for Visit * Reason Comments Headache Pt to er with cc of migrain e x 3 days in the left side of her head. Pt states she has been taking her percocet and phenergan at home with no relief. Encounter Details Care Team Description Date Type Department Migraine Headache 08/23/2009 Emergency [facility] Emergency Department [address] [phone] Social History Date Tobacco Use Types Packs/Day [...] Signs Reading Time Taken Comments Vital Sign 145/75 08/23/2009 10:33 AM CDT Blood Pressure 98 08/23/2009 10:33 AM CDT Pulse 36.3 C (97.4 F) 08/23/2009 10:33 AM CDT Temperature 18 08/23/2009 10:33 AM CDT Respiratory Rate 97% 08/23/2009 10:33 AM CDT Oxygen Saturation - - Inhaled Oxygen Concentration 136.1 kg (300 lb) 08/23/2009 10:33 AM CDT Weight 160 cm (5' 3") 08/23/2009 10:33 AM CDT Height 53.14 08/23/2009 10:33 AM CDT Body Mass Index documented in this encounter Discharge Instructions * Instructions* Emy Bran ARNP - 08/23/2009 * Attachments The following attachments cannot be sent through Care Everywhere.* MIGRAINE HEADACHE: AFTER YOUR VISIT (TELUGU) documented in this encounter Medications at Time of Discharge Start Date End Date Medication Sig Dispensed Refills 10/05/2007 Oxygen-Air Delivery Take 2 L/min 0 Systems Misc Leisa by inhalation daily at bedtime. 10/05/2007 ACCU-CHEK ACTIVE CARE by See Admin 0 Misc Kit Instructions route. Before meals, at bedtime, and as needed 12/02/2009 ropinirole (REQUIP) 1 mg Take 1 mg by 0 Oral tabletIndications: mouth daily Chronic pain at bedtime. 04/15/2010 05/16/2010 warfarin (COUMADIN) 5 mg Take 5 mg by 0 Oral tablet mouth daily. 07/30/2009 08/30/2009 oxycodone-acetaminophen Take 1 Tab by 90 Tab 0 (PERCOCET) 10-325 mg Oral mouth every 8 TabIndications: Back pain hours as needed. 07/30/2009 08/30/2009 amphetamine-dextroampheta Take 1 Cap by 30 Cap 0 mine SR 24 hour (ADDERALL mouth daily XR) 25 mg Oral early capsuleIndications: morning. Narcolepsy 07/05/2009 05/16/2010 albuterol-ipratropium Take 2 Puffs 1 [...] ED Notes * Ari Stanley Physician - 08/24/2009 11:58 AM CDT * Emy Bran, [facility] - 08/23/2009 10:40 AM CDT HISTORY OF PRESENT ILLNESS Ayden Odom, a 39 y.o. female presents to the ED with a Chief Complaint o f Headache The history is provided by the patient. REVIEW OF SYSTEMS Review of Systems HENT: Negative for ear pain. Eyes: Positive for photophobia. Negative for blurred vision and double vision. Respiratory: Negative for cough and shortness of breath. Gastrointestinal: Positive for nausea and vomiting. Negative for diarrhea. Neurological: Positive for headaches. Negative for dizziness, speech change, foc al weakness and loss of consciousness. PAST MEDICAL HISTORY REVIEWED Past Medical History [...] 04/19/2009 SIGMOIDOSCOPY performed by MUKESH DOMÍNGUEZ at [facility] OR Pt denies relevant surgical history [...] H/O METH USE Sexually Active: Yes -- Female partner(s) ALLERGIES Aloe vera, Tape and Doxycycline HOME MEDICATIONS Patient's Home Medications New Prescriptions for this Encounter Current Home Medications ACCU-CHEK ACTIVE CARE MISC KIT by See Admin Instructions route. Before meals , at bedtime, and as needed ALBUTEROL-IPRATROPIUM (COMBIVENT) 103-18 MCG/ACTUATION INHALATION AERO Take 2 Puffs by inhalation every 6 hours. AMITRIPTYLINE (ELAVIL) 50 MG ORAL TABLET Take 50 mg by mouth daily at bedtim e. AMPHETAMINE-DEXTROAMPHETAMINE SR 24 HOUR (ADDERALL XR) 25 MG ORAL CAPSULE Ta ke 1 Cap by mouth daily beadworker. ATORVASTATIN (LIPITOR) 80 MG ORAL TABLET Take 80 mg by mouth Daily LATE. DEPAKOTE 500 MG ORAL TBEC Take 1 [...] 2 Puffs by inhalation every 6 hours. LOVAZA 1 GRAM ORAL CAP Take 1 [...] times daily. PROMETHAZINE (PHENERGAN) 25 MG ORAL TAB Take 1 Tab by mouth every 6 hours as needed for Nausea. RANITIDINE HCL (ZANTAC) 150 MG ORAL CAP Take 1 Cap by mouth 2 times daily. ROPINIROLE (REQUIP) 1 MG ORAL TABLET Take 1 mg by mouth daily at bedtime. SUMATRIPTAN-NAPROXEN (TREXIMET) 85-500 MG ORAL TABLET Take 1 Tab by mouth on e time as needed for Migraine for 1 dose. May repeat dose once after 2 hr; MAX 2 tablets in 24 hr TOPIRAMATE (TOPAMAX) 100 MG ORAL TABLET Take 1 Tab by mouth 2 times daily. TOPIRAMATE (TOPAMAX) 100 MG ORAL TABLET Take 100 mg by mouth 2 times daily. WARFARIN (COUMADIN) 10 MG ORAL TABLET Take 10 mg by mouth every Sunday, , and Sunday. WARFARIN (COUMADIN) 5 MG ORAL TABLET Take 5 mg by mouth. , , Sun & Sunday ZOLPIDEM (AMBIEN) 10 MG ORAL TAB Take 1 Tab by mouth nightly as needed for I nsomnia. Medications Modified during this Encounter Medications Discontinued during this Encounter PHYSICAL EXAM Initial Vitals BP 08/23/09 1033 145/75 mmHg Pulse 08/23/09 1033 98 Resp 08/23/09 1033 18 Temp 08/23/09 1033 97.4 F (36.3 C) Temp src 08/23/09 1033 Oral SpO2 08/23/09 1033 97 % Physical Exam Constitutional: She is oriented. She appears well-developed and well-nourished. HENT: Head: Normocephalic and atraumatic. Right Ear: External ear normal. Left Ear: External ear normal. Nose: Nose normal. Mouth/Throat: Oropharynx is clear and moist. Eyes: Pupils are equal, round, and reactive to light. Neck: Normal range of motion. Neck supple. No JVD present. No tracheal deviation present. Cardiovascular: Normal rate, regular rhythm, normal heart sounds and intact dist al pulses. No murmur heard. Pulmonary/Chest: Effort normal and breath sounds normal. No respiratory distress . Abdominal: Soft. Bowel sounds are normal. No tenderness. Musculoskeletal: Normal range of motion. She exhibits no edema. Lymphadenopathy: She has no cervical adenopathy. Neurological: She is alert and oriented. Skin: Skin is warm and dry. Psychiatric: She has a normal mood and affect. Her behavior is normal. Coding DIAGNOSTICS LAB: RADIOLOGY: EKG: PROCEDURES toradol 60mg with phenergan 25mg IM x 1 MEDICAL DECISION MAKING AND PLAN OF CARE Last vitals BP 145/75 | Pulse 98 | Temp(Src) 97.4 F (36.3 C) (Oral) | Resp 18 | Ht 5' 3" (1.6 m) | Wt 136.079 kg | SpO2 97% | LMP Hysterectomy CLINICAL IMPRESSION Encounter Diagnoses Code Name Primary? 346.90D Migraine Headache CASE DISCUSSED PATIENT COUNSELING Diagnostics reviewed and questions answered. Diagnosis, treatment options and p radha of care discussed with understanding verbalized. DISPOSITION, EDUCATION AND MEDICATION RECONCILIATION Medications reconciled. See after visit summary for patient education on discha rged patients. documented in this encounter Plan of Treatment Not on filedocumented as of this encounter Visit Diagnoses Diagnosis Migraine headache Migraine, unspecified, without mention of intractable migraine without mention of status migrainosus documented in this encounter Administered Medications Action Date Dose Rate Site Medication Order MAR Action 08/23/2009 10:45 AM CDT 60 mg Ventrogl uteal, Left ketorolac (TORADOL) injection 60 mg Given 60 mg, IM, ONE TIME ONLY, 1 dose, Sun08/23/09 at 1045, Stat 08/23/2009 10:46 AM CDT 25 mg Ventrogl uteal, Left promethazine (PHENERGAN) injection 25 mg Given 25 mg, IM, ONE TIME ONLY, 1 dose, 08/23/09 at 1045, Routine documented in this encounter
--- OUTSIDE RECORDS SUMMARY | 2019-10-21 18:32 | XMS REPORT | Encounter Summary ---
Author Author [facility] Organization [facility] Address Unknown Phone Unavailable Care Team Providers Care Student Teacher Name Role Phone Phong Stephens MD PCP Unavailable Robby Rajan DONKEY RIDE OPERATOR Unavailable Encounter Details Care Team Description Date Type Department Phong Stephens MD NO ADDRESS ON FILE 09/28/2009 Abstract [facility] [address] [place] [phone] Social History Date Tobacco Use Types Packs/Day Years Used Current Every Day Smoker Cigarettes 06 30 Comments: STARTED SMOKING AGE 11 Drinks/Week oz/Week [...]
--- OUTSIDE RECORDS SUMMARY | 2019-10-21 18:32 | XMS REPORT | Encounter Summary ---
Author Author [facility] Organization [facility] Address Unknown Phone Unavailable Care Team Providers Care Environmental Property Assessor Name Role Phone Phong Stephens MD PCP Unavailable Reason for Visit * Reason Comments Medication Refill Encounter Details Care Team Description Date Type Department Phong Stephens MD NO ADDRESS ON FILE 08/31/2009 Refill [facility] [address] [phone] Social History Date Tobacco [...]
--- OUTSIDE RECORDS SUMMARY | 2019-10-21 18:32 | XMS REPORT | Encounter Summary ---
Author Author [facility] Organization [facility] Address Unknown Phone Unavailable Care Team Providers Care Jury Consultant Name Role Phone Phong Stephens MD PCP Unavailable Reason for Visit * Reason Comments Medication Refill Encounter Details Care Team Description Date Type Department Phong Stephens MD NO ADDRESS ON FILE Back Pain; Narcolepsy 08/30/2009 [facility]ill 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
--- OUTSIDE RECORDS SUMMARY | 2019-10-21 18:32 | XMS REPORT | Encounter Summary ---
Author Author [facility] Organization [facility] Address Unknown Phone Unavailable Care Team Providers Care Stock Ranch Supervisor Name Role Phone Phong Stephens MD PCP Unavailable Encounter Details Care Team Description Date Type Department Phong Stephens MD NO ADDRESS ON FILE 09/08/2009 Abstract [facility] Prim[facility] y Care [place] [address] [place] [phone] Social History Date Tobacco Use Types Packs/Day [...]
--- OUTSIDE RECORDS SUMMARY | 2019-10-21 18:32 | XMS REPORT | Encounter Summary ---
Author Author [facility] Organization [facility] Address Unknown Phone Unavailable Care Team Providers Care [facility] Name Role Phone Phong Stephens MD PCP Unavailable Encounter Details Care Team Description Date Type Department Phong Stephens MD NO ADDRESS ON FILE [facility], Lab Schedule 09/07/2009 [facility] General Encounter Laboratory Services [address] [phone] Social History Date Tobacco Use [...] Before meals, at bedtime, and as needed 09/07/2009 06/09/2010 cyclobenzaprine Take 1 Tab by 10 Tab 0 (FLEXERIL) 10 mg Oral mouth 3 times tabletIndications: Lumbar daily as back pain needed for Spasm. 08/31/2009 09/30/2009 lorazepam (ATIVAN) 1 mg Take 1 Tab by 60 Tab 0 Oral tablet mouth 2 times daily. 08/30/2009 10/15/2009 oxycodone-acetaminophen Take 1 Tab by 90 Tab 0 (PERCOCET) 10-325 mg Oral mouth every 8 TabIndications: Back pain hours as needed. 08/30/2009 10/07/2009 amphetamine-dextroampheta Take 1 Cap by 30 Cap 0 mine SR 24 hour (ADDERALL mouth daily XR) 25 mg Oral early capsuleIndications: morning. Narcolepsy 12/02/2009 ropinirole (REQUIP) 1 mg Take 1 [...] Priority Date/Time Associated Diag nosis PROTIME-INR Routine 09/07/2009 Pulmonary Embol ism 5:36 PM CDT HEMOGLOBIN A1C Routine 09/07/2009 DM w/o Complica tion Type 5:36 PM CDT II documented in this encounter Results * PROTIME-INR (09/07/2009 5:36 PM CDT) PROTIME 27.0 (H) 9.9 - 11.7 Sec [facility] INR 2.48Comment: [facility] 2.0 - 3.0 [facility] ACCT#[id number], ,,,, CENTER [facility] Specimen Blood specimen (specimen) Performing Organization Address City/State/[facility] Hospital[facility] Ph one Number INTERFACE SYSTEM [facility] AL[facility]SA [place]# [id number] Milly RIOJAS [id number] [facility] [address] [facility] * HEMOGLOBIN A1C (09/07/2009 5:36 PM CDT) HEMOGLOBIN A1C 6.3 (H) 0 - 6.0 % [facility] GLUCOSE, MEAN 134Comment: [place] mg/dl [facility] BLOOD ACCT#[id number], ,,,, CENTER [facility] Specimen Blood specimen (specimen) Performing Organization Address City/[facility] Hospitalcode Ph one Number INTERFACE [facility] ALYSA [place]# [id number] Milly RIOJAS [id number] [facility] [address] [place] [address] documented in this encounter Visit Diagnoses Diagnosis Type II or unspecified type diabetes me llitus without mention of complication, not stated as uncontrolled Pulmonary embolism Other pulmonary embolism and infarction documented in this encounter
--- OUTSIDE RECORDS SUMMARY | 2019-10-21 18:32 | XMS REPORT | Encounter Summary ---
Author Author [facility] Organization [facility] Address Unknown Phone Unavailable Care Team Providers Care Health Informatics Advisor Name Role Phone Phong Stephens MD PCP Unavailable Encounter Details Care Team Description Date Type Department [facility], Lab Schedule 08/17/2009 Hospital [facility] General Encounter Laboratory Services [address] [phone] Social History Date Tobacco Use [...] tabletIndications: mouth daily Chronic pain at bedtime. 08/12/2009 08/22/2009 nitrofurantoin, Take 1 Cap by 20 Cap 0 yyzatdoszp84%, (MACROBID) mouth 2 times 100 mg Oral capsule daily for 10 days. 04/15/2010 05/16/2010 warfarin (COUMADIN) 5 mg Take [...] Procedure Name Priority Date/Time Associated Diag nosis DRUG SCREEN, URINE Routine 08/17/2009 Chronic Lj n 1:25 PM CDT documented in this encounter Results * DRUG SCREEN, URINE (08/17/2009 1:25 PM CDT) AMPHETAMINE Positive [employer] HEALTH QUAL, [facility]INE [facility] BARBITURATE Negative [employer] QUAL, [facility]INE [facility] [place] [facility] BENZODIAZEPINE Negative [employer] HEALTH QUAL, [facility] [place] [facility] COCAINE METAB Negative [employer] [facility] [place] [facility] CANNABINOIDS Negative [employer] QUAL, [facility] [place] [facility] METHADONE QUAL, Negative [facility] [place] [facility] OPIATE QUAL, Negative [facility] [place] [facility] PCP QUAL, URINE Negative [facility] Comment: [facility] Chain of Custody Handling was [facility] not performed on this specimen. This screen will not meet medical-legal requirements. CUTOFF LIMITS Amphetamines 1000 ng/ml Barbiturates 200 ng/ml Benzodiazepines 200 ng/ml Cocaine metabolite 300 ng/ml Marijuana metabolites 50 ng/ml Methadone 300 ng/ml Opiates 2000 ng/ml PCP 25 ng/ml [facility] ACCT#[id number], ,,,, Specimen Urine specimen (specimen) Performing Organization Address City/State/Zipcode Ph one Number INTERFACE SYSTEM [facility]# [id number] Milly RIOJAS [address] [facility] [address] [place] [address] documented in this encounter Visit Diagnoses Diagnosis Chronic pain Other chronic pain documented in this encounter
--- OUTSIDE RECORDS SUMMARY | 2019-10-21 18:32 | XMS REPORT | Encounter Summary ---
Author Author [facility] Organization [facility] Address Unknown Phone Unavailable Care Team Providers Care Tin Pourer Name Role Phone Phong Stephens MD PCP Unavailable Robby Rajan COMMUNICATION ANALYST Unavailable Reason for Visit * Reason Comments Medication Refill Encounter Details Care Team Description Date Type Department Phong Stephens MD NO ADDRESS ON FILE 09/30/2009 Refill [facility] Care [address] [phone] Social History Date Tobacco [...]
--- OUTSIDE RECORDS SUMMARY | 2019-10-21 18:32 | XMS REPORT | Encounter Summary ---
Author Author [facility] Organization [facility] Address Unknown Phone Unavailable Care Team Providers Care Enchilada Maker Name Role Phone Phong Stephens MD PCP Unavailable Robby Rajan COMMUNITY FACILITATOR Unavailable Encounter Details Care Team Description Date Type Department Brittany Apple 09/08/[address] [facility] Primar y Care [address] [phone] Social History Date Tobacco Use [...]
--- OUTSIDE RECORDS SUMMARY | 2019-10-21 18:32 | XMS REPORT | Encounter Summary ---
Author Author [facility] Organization [facility] Address Unknown Phone Unavailable Care Team Providers Care Cell Tuber Machine Name Role Phone Phong Stephens MD PCP Unavailable Robby Rajan CEMENTING BULK MATERIAL OPERATOR Unavailable Encounter Details Care Team Description Date Type Department Phong Stephens MD NO ADDRESS ON FILE 09/23/2009 Abstract [facility] [address] [place] [phone] Social History Date Tobacco Use Types Packs/Day [...]
--- OUTSIDE RECORDS SUMMARY | 2019-10-21 18:32 | XMS REPORT | Encounter Summary ---
Author Author [facility] Organization [facility] Address Unknown Phone Unavailable Care Team Providers Care Health Education Teacher Name Role Phone Phong Stephens MD PCP Unavailable Robby Rajan INFLATED BALL MOLDER Unavailable Reason for Visit * Reason Comments Dizziness Migraine Skin Problem abd Encounter Details Care Team Description Date Type Department Phong Stephens MD NO ADDRESS ON FILE Acute Sinusitis; DM w/o Complication Type II 09/17/2009 Office Visit [facility] Prim[address] [phone] Social History Date Tobacco [...] Signs Reading Time Taken Comments Vital Sign 100/56 09/17/2009 10:37 AM CDT Blood Pressure 100 09/17/2009 10:37 AM CDT Pulse - - Temperature - - Respiratory Rate - - Oxygen Saturation - - Inhaled Oxygen Concentration 143.3 kg (316 lb) 09/17/2009 10:37 AM CDT Weight - - Height 55.98 08/23/2009 10:33 AM CDT Body Mass Index documented in this encounter Progress Notes * Phong Stephens MD - 09/17/2009 11:04 AM CDT SUBJECTIVE: Ayden Odom is a 39 y.o. female who complains of congestion, nasal blocka ge, dry cough and right, maxillary sinus pain for 2 days. She denies a history o f fevers and admits to a history of asthma. contiues to smoke. Has hx of diabete s rxed with diet OBJECTIVE: She appears well, vital signs are as noted. Ears normal. Throat and pharynx nor mal. Neck supple. No adenopathy in the neck. Nose is congested. Sinuses tender . The chest is diffuse, scattered wheezes ASSESSMENT: sinusitis PLAN: Symptomatic therapy suggested: use antihistamine-decongestant of choice prn and amoxil and sinus as per Dr Espino. Also pred 4,3,2,1 taper 10 mg Call or return to clinic prn if these symptoms worsen or fail to improve as anticipated. documented in this encounter Plan of Treatment Not on filedocumented as of this encounter Visit Diagnoses Diagnosis Acute sinusitis Acute sinusitis, unspecified Type II or unspecified type diabetes me llitus without mention of complication, not stated as uncontrolled documented in this encounter
--- OUTSIDE RECORDS SUMMARY | 2019-10-21 18:32 | XMS REPORT | Encounter Summary ---
Author Author [facility] Organization [facility] Address Unknown Phone Unavailable Care Team Providers Care Director Investor Relations Name Role Phone Phong Stephens MD PCP Unavailable Reason for Visit * Reason Comments ER Follow Up 1 week Medication Review when refill oxycotin Other loss voice Encounter Details Care Team Description Date Type Department Phong Stephens MD NO ADDRESS ON FILE Chronic Pain (Primary Dx) 08/17/2009 Office Visit [facility] Primar y [address] [address] Social History Date Tobacco [...] Vital Sign - - Blood Pressure 97 08/17/2009 12:17 PM CDT Pulse 36.8 C (98.2 F) 08/17/2009 12:17 PM CDT Temperature - - Respiratory Rate - - Oxygen Saturation - - Inhaled Oxygen Concentration - - Weight - - Height - - Body Mass Index documented in this encounter Progress Notes * Phong Stephens MD - 08/17/2009 9:15 PM CDT Subjective: Ayden Odom is a [...] prior to encounter Medication Sig Dispense Refill nitrofurantoin, [id number]%, (MACROBID) 100 mg Oral capsule Take 1 Cap by mouth 2 times daily for 10 days. 20 Cap 0 warfarin (COUMADIN) 10 mg Oral tablet Take 10 mg by mouth every Sunday, , and Sunday. warfarin (COUMADIN) 5 mg Oral tablet Take 5 mg by mouth. , , Sun & Sunday oxycodone-acetaminophen (PERCOCET) 10-325 mg Oral Tab Take 1 Tab by mouth ev ana lilia 8 hours as needed. 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 30 Cap 0 gabapentin (NEURONTIN) 300 mg Oral capsule Take [...] mouth 3 times daily. 90 Tab 2 zolpidem (AMBIEN) 10 mg Oral Tab Take [...] IN Take by inhalation every 6 hours. docusate sodium (COLACE) 100 mg Oral Cap Take 100 mg by mouth 2 times daily as needed for Constipation. See repeat urine drug screen pt states she took percocet @ 4 hrs ago HPI: Ms. Odom complains of the following (by systems): very complex person with psyco social problems, chronic pain, seizures, bipolar, "narcolepsy" and today presents for med review. she is marily se he was allegedly swithing her oxycontin BID for K+. pain is reasonable contr olled with percocet prn at this time. she has about 10 days more tabs. Review of Systems: ROS Denies all of the following: Headache Dizziness Chest pain Shortness of breath Bowel changes Bladder changes Pain in muscle or joints: chronic Exam/Objective: Normal Exam for Routine Visits: \\Pulse 97, temperature 98.2 F (36.8 C), temp erature source Tympanic, last menstrual period Hysterectomy. General appearance: ill obese appearing, cooperative, episodes of becoming somn olent normally nourished, and in no acute distress Lungs: breath sounds equal, clear to auscultation bilaterally, no retractions, n o stridor, normal respiratory effort Heart: regular rate and rhythm, S1, S2 normal, no murmur, click, rub, gallop, or abnormal sounds. Abdomen:obese, soft, non-tender. Bowel sounds normal. No masses, no organomegal y. Active bowel sounds. Extremities: symmetrical non edematous. Assessment and Plan: ASSESSMENT: Encounter Diagnosis Name Primary? Chronic Pain Yes PLAN: Orders Placed This Encounter Drug screen, urine did complete review of meds Stopped ativan, reduced cymbalta, did not yet refill oxycodone, we need to cont to sort poly pharm. She this week is to complete appt with psychiatrist, and neurologist Appropriate medications prescribed (see detailed AVS). Appropriate [...] URINE (08/17/2009 1:25 PM CDT) AMPHETAMINE Positive [facility] BARBITURATE Negative [facility] BENZODIAZEPINE Negative [facility], [facility] COCAINE METAB Negative [facility] CANNABINOIDS Negative [facility] METHADONE QUAL, Negative [facility] URINE [facility] OPIATE QUAL, Negative [facility] URINE [facility] PCP QUAL, URINE Negative [facility] Comment: [facility] Chain of Custody Handling was [facility] not performed on this specimen. This screen will not meet medical-legal requirements. CUTOFF LIMITS Amphetamines 1000 ng/ml Barbiturates 200 ng/ml Benzodiazepines 200 ng/ml Cocaine metabolite 300 ng/ml Marijuana metabolites 50 ng/ml Methadone 300 ng/ml Opiates 2000 ng/ml PCP 25 ng/ml CLEMENTE ROBISON ACCT#[id number], ,,,, Specimen Urine specimen (specimen) Performing Organization Address City/State/Zipcode Ph one Number INTERFACE SYSTEM [facility]# [id number] [place] [id number] [facility] [address] [facility] documented in this encounter Visit Diagnoses Diagnosis Chronic pain - Primary Other chronic pain documented in this encounter
--- OUTSIDE RECORDS SUMMARY | 2019-10-21 18:32 | XMS REPORT | Encounter Summary ---
Author Author [facility] Organization [facility] Address Unknown Phone Unavailable Care Team Providers Care Pipe Fitter Supervisor Name Role Phone Phong Stephens MD PCP Unavailable Reason for Visit * Reason Comments Headache migraine Encounter Details Care Team Description Date Type Department Phong Stephens MD NO ADDRESS ON FILE Unspecified Migraine without Mention of Intractable Migraine (Primary Dx) 08/24/2009 Office [facility] [address] [place] [address] Social History Date Tobacco Use [...] Signs Reading Time Taken Comments Vital Sign 112/74 08/24/2009 11:08 AM CDT Blood Pressure 72 08/24/2009 11:08 AM CDT Pulse 37.1 C (98.7 F) 08/24/2009 11:08 AM CDT Temperature - - Respiratory Rate - - Oxygen Saturation - - Inhaled Oxygen Concentration - - Weight - - Height - - Body Mass Index documented in this encounter Progress Notes * Phong Stephens MD - 08/24/2009 7:39 PM CDT Subjective: Ayden Odom is a [...] prior to encounter Medication Sig Dispense Refill amitriptyline (ELAVIL) 50 mg Oral tablet Take [...] Ta ke 1 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 30 Cap 0 gabapentin (NEURONTIN) 300 mg [...] Odom complains of the following (by systems): recurrent L post occipital and frontal CROWELL with photophobia. no NVD. hx of stress with not leaving as she planned. Review of Systems: ROS Denies all of the following: Dizziness Chest pain Shortness of breath Bowel changes Bladder changes Pain in muscle or joints: does have pain at base of skull Exam/Objective: Normal Exam for Routine Visits: \Blood pressure 112/74, pulse 72, temperature 98 .7 F (37.1 C), last menstrual period Hysterectomy. General appearance: chronic ill appearing, active, alert, cooperative, social, normally nourished, and in mod acute distress Lungs: breath sounds equal, clear to auscultation bilaterally, no retractions, n o stridor, normal respiratory effort Heart: regular rate and rhythm, S1, S2 normal, no murmur, click, rub, gallop, or abnormal sounds. Abdomen: soft, non-tender. Bowel sounds normal. No masses, no organomegaly. Ac tive bowel sounds. Extremities: symmetrical non edematous. HEENT: tender base of skull L>R other rao no acute changes Assessment and Plan: ASSESSMENT: Encounter Diagnosis Name Primary? Unspecified Migraine without Mention of Intractable Migraine Yes PLAN: Orders Placed This Encounter Promethazine 25 mg/ml injection Ketorolac 60 mg/2 ml injection Ketorolac 30 mg/ml (1 ml) injection Promethazine 25 mg/ml injection Ketorolac 60 mg/2 ml im Appropriate medications prescribed (see detailed AVS). Appropriate patient instructions provided (see detailed AVS). Follow-up as I have indicated. Medications and options explained to include common side effects. Understanding of medications, course, diagnosis, and expectations were expressed by patient/g uardian. documented in this encounter Plan of Treatment Not on filedocumented as of this encounter Visit Diagnoses Diagnosis Unspecified Migraine without Mention of Intractable Migraine - Primary Migraine, unspecified, without mention of intractable migraine without mention of status migrainosus documented in this encounter
--- OUTSIDE RECORDS SUMMARY | 2019-10-21 18:32 | XMS REPORT | Encounter Summary ---
Author Author [facility] Organization [facility] Address Unknown Phone Unavailable Care Team Providers Care Copy Messenger Name Role Phone Phong Stephens MD PCP Unavailable Robby Rajan ANIMAL HANDLER Unavailable Reason for Visit * Reason Comments Other Super pubic cath Encounter Details Care Team Description Date Type Department Rehana Valdivia Other (Super pubic cath) 09/29/2009 Telephone [facility] Prim[facility] Care [address] [address] Social History Date Tobacco [...] * Telephone Encounter - Rehana Valdivia - 09/29/2009 12:34 PM CDT Patient called stating she is having problems with her super pubic catheter. Inf ormed patient she needs to call her Urologist. documented in this encounter Plan of Treatment Not on filedocumented as of this encounter Visit Diagnoses Not on filedocumented in this encounter
--- OUTSIDE RECORDS SUMMARY | 2019-10-21 18:33 | XMS REPORT | Encounter Summary ---
Author Author [facility] Organization [facility] Address Unknown Phone Unavailable Care Team Providers Care Property Site Manager Name Role Phone PCP Unavailable Reason for Visit * Reason Comments Referral Appointment scheduled with Dr Espino Encounter Details Care Team Description Date Type Department Jessica Christian Referral (Appointment scheduled with Dr Espino) 07/15/2009 Telephone [facility] Primar Care [address] [address] Social History Date Tobacco [...] * Telephone Encounter - Jessica Christian - 07/15/2009 4:14 PM WATCH AND CLOCK REPAIR CLERK Appointment scheduled with Dr Espino for Aug 09 at 10:30 office. H AND CLOCK REPAIR CLERK documented in this encounter Plan of Treatment Not on filedocumented as of this encounter Visit Diagnoses Not on filedocumented in this encounter
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
--- OUTSIDE RECORDS SUMMARY | 2019-10-21 18:33 | XMS REPORT | Encounter Summary ---
Author Author [facility] Organization [facility] Address Unknown Phone Unavailable Care Team Providers Care Windows Infrastructure Engineer Name Role Phone Phong Stephens MD PCP Unavailable Reason for Visit * Auth/Cert Referred By Contact Referred To Contact Status Reason Specialty Diagnoses / Procedures [facility] [address] [place] [id number] Closed Radiology Encounter Details Care Team Description Date Type Department Phong Stephens MD NO ADDRESS ON FILE 07/21/2009 [facility] Imaging Se rvices Encounter [address] [id number] Social History Date Tobacco Use [...] Before meals, at bedtime, and as needed 07/05/2009 05/16/2010 albuterol-ipratropium Take 2 Puffs 1 [...] Cap 5 mg Oral CpDR mouth daily. 10/12/2008 07/30/2009 cyclobenzaprine Take 1 Tab by 30 Tab 2 (FLEXERIL) 10 mg Oral Tab mouth every 8 hours as needed for Spasm for 90 doses. 06/10/2008 07/30/2009 levalbuterol HFA (XOPENEX Take 2 Puffs 1 Inhaler 5 HFA) 45 mcg/Actuation by inhalation Inhalation HFAA every 6 hours. 10/31/2007 12/02/2009 DUONEB IN Take by 0 inhalation every 6 hours. documented as of this encounter Plan of Treatment Not on filedocumented as of this encounter Procedures Comments Procedure Name Priority Date/Time Associated Diag nosis XR LUMBAR SPINE 2 OR 3 VW Routine 07/21/2009 Back Pain 1:23 PM [employer]SEKEEPING LE[employer] documented in this encounter Results * XR LUMBAR SPINE 2 OR 3 VW (07/21/2009 1:23 PM HOUSEKEEPING LEAD) Specimen Impressions Performed At : Mild degenerative disc change without a cute bony abnormality identified. Narrative Performed At LUMBAR SPINE: INDICATIONS: BACK PAIN AP and lateral views of the lumbar spin e were obtained. Lateral cone down view also obtained. The lumbar v ertebral body heights and alignment appear maintained. No acute fracture or subluxation is identified. Inferior vena cava filter is noted. M ild degenerative disc space narrowing is noted at L4-5 and L5-S1. Transitional vertebral body noted at S1. Procedure Note Macho Barrios MD - 07/21/2009 3:43 PM HOUSEKEEPING LE[employer] LUMBAR SPINE: INDICATIONS: BACK PAIN AP and lateral views of the lumbar spine were obtained. Lateral cone down view also obtained. The lumbar vertebral body heights and alignment appear maintained. No acute fracture or subluxation is identified. Inferior vena cava filter is noted. Mild degenerative disc space narrowing is noted at L4-5 and L5-S1. Transitional vertebral body noted at S1. IMPRESSION: Mild degenerative disc change without acute bony abnormality identified. documented in this encounter Visit Diagnoses Diagnosis Back pain Backache, unspecified documented in this encounter
--- OUTSIDE RECORDS SUMMARY | 2019-10-21 18:33 | XMS REPORT | Encounter Summary ---
Author Author [facility] Organization [facility] Address Unknown Phone Unavailable Care Team Providers Care Triage Clinician Name Role Phone PCP Unavailable Reason for Visit * Reason Comments Medication Refill Encounter Details Care Team Description Date Type Department Phong Stephens MD NO ADDRESS ON FILE 07/05/2009 Refill [facility] [address] [id number] Social History Date Tobacco Use [...]
--- OUTSIDE RECORDS SUMMARY | 2019-10-21 18:33 | XMS REPORT | Encounter Summary ---
Author Author [facility] Organization [facility] Address Unknown Phone Unavailable Care Team Providers Care Product Marketing Intern Name Role Phone Phong Stephens MD PCP Unavailable Reason for Visit * Reason Comments Shoulder Pain Left shoulder pain starting this morning. States feels the same as her rt shoulder did before she had rotator cuf f repair. Lethargy Unable to keep eyes open to day. States that she knows that she is more drowsy than usual. States that she thi nks that she needs to wear her oxygen more but needs an order for this . Encounter Details Care Team Description Date Type Department Shoulder Pain; Sleep Apnea 08/10/2009 Emergency [facility] Emergency Department [address] [id number] Social History Date Tobacco Use [...] Signs Reading Time Taken Comments Vital Sign 122/69 08/10/2009 2:40 PM HELMET HAT PUNCHER Blood Pressure 108 08/10/2009 1:45 PM HELMET HAT PUNCHER Pulse 36.3 C (97.3 F) 08/10/2009 10:40 AM HELMET HAT PUNCHER Temperature 16 08/10/2009 2:40 PM HELMET HAT PUNCHER Respiratory Rate 96% 08/10/2009 2:40 PM HELMET HAT PUNCHER Oxygen Saturation - - Inhaled Oxygen Concentration 158.8 kg (350 lb) 08/10/2009 10:40 AM HELMET HAT PUNCHER Weight - - Height 62 07/22/2009 5:44 AM HELMET HAT PUNCHER Body Mass Index documented in this encounter Discharge Instructions * Instructions* Yina Chuckpenny Navarro, DENNY - 08/10/2009 Hold coumadin for today and tomorrow then decrease to 10mg Sunday and Sunday, 5mg all other days. You will need a repeat INR in 2 weeks. Oxygen at home 24 hours a day. You need to get fitting [facility] your CPAP through [facility] documented in this encounter Medications at Time of Discharge Start Date End Date Medication Sig Dispensed Refills 10/05/2007 Oxygen-Air Delivery Take 2 L/min 0 Systems Misc Leisa by inhalation daily at bedtime. 10/05/2007 ACCU-CHEK ACTIVE CARE by See Admin 0 Misc Kit Instructions route. Before meals, at bedtime, and as needed 08/12/2009 08/22/2009 nitrofurantoin, Take 1 Cap by 20 Cap 0 %, (MACROBID) mouth 2 times 100 mg Oral [...] 6 hours. documented as of this encounter Procedure Notes * Aok Scanning, Ari Physician - 08/18/2009 1:00 PM CDT Associated Order(s): MISCELLANEOUS LAB TEST; MISCELLANEOUS LAB TEST * Aok Scanning, Ari Physician - 08/12/2009 12:00 PM HELMET HAT PUNCHER Associated Order(s): EKG 12 LEAD UNIT PERFORMED; EKG 12 LEAD UNIT PERFORMED * Sukhi Fontana MD - 08/11/2009 8:11 AM HELMET HAT PUNCHER Associated Order(s): EKG 12 LEAD UNIT PERFORMED; EKG 12 LEAD UNIT PERFORMED [place] [id number] EKG VELAZQUEZJERALD [id number] 08/10/09 at 1140. The rhythm is regular, rapid, sinus in origin with a rate of 103 beats per marylin te. RSR' complexes are noted in V1 and V2. Abnormal R wave progression is seen a cross the chest with loss of R wave potential from V2 to V3 and a pretransitiona l Q wave IN V3. Q waves are prominent in limb lead III without abnormal Q waves in leads II or aVF. Compared with previous tracing dated June 07 2009, Q wav es are more prominent in limb lead III currently and R wave progression occurs i n an drug safety coordinator fashion across the chest previously. Diagnosis: 1) Sinus tachycardi a, rate 103 beats per minute. 2) Incomplete right bundle branch block. 3) Abnorm al R wave progression, anterior chest leads. Anterior wall myocardial infarct of undetermined age cannot be completely ruled out. 4) Borderline inferior limb le ad Q waves, old inferior wall myocardial infarct cannot be completely ruled out. Dictated by SMacario. Dictated by: EKG DD 08/11/09 TD 08/11/09/LRG EKG REPORT # [id number] ORDER # ET HAT PUNCHER documented in this encounter ED Notes * Aok Scanning, Ari Physician - 08/11/2009 10:39 AM HELMET HAT PUNCHER * Lakeisha Abdi RN - 08/10/2009 3:20 PM HELMET HAT PUNCHER Back outside to smoke. Has been kept aware that we are waiting on lab results. Caregiver stating that she needs to leave a soon as possible since she has class at 4 p.m. Pt has made no further c/o shoulder or jaw pain. Lab contacted at this time concerning need for 3 hr iso's. Results will be post ed in 5 minutes per lab staff. ET HAT PUNCHER * Lakeisha Abdi RN - 08/10/2009 3:08 PM HELMET HAT PUNCHER Returned to room and inquiring when she can go home. Aware that we are waiting on lab test. ET HAT PUNCHER * Lakeisha Abdi RN - 08/10/2009 2:41 PM HELMET HAT PUNCHER Pt & caregiver "going for a walk" while waiting on lab results. Pt has not offered any More complaints concerning her shoulder. Has been noted to be moving left arm and at one point, noted to put left arm over back arm of the wheelchair. ET HAT PUNCHER * Lakeisha Abdi RN - 08/10/2009 2:14 PM HELMET HAT PUNCHER Lab here to attempt to draw ABG's & 3 hr iso's. Pt has continued to visit with caregiver. Has removed 02 again. ET HAT PUNCHER * Lakeisha Abdi RN - 08/10/2009 1:50 PM HELMET HAT PUNCHER 1345: safe and vault mechanic to desk stating that pt is "going to pass out." This freelance writer to room and pt stating that she is "going to pass out", then closes eyes and leans head back. No change in resp or other v.s. Pt able to answer questions approp riately while "passed out." 1348: When staff left room, noted that pt is talking in full sentences with her hemodialysis patient care specialist. ET HAT PUNCHER * Lakeisha Abdi RN - 08/10/2009 1:30 PM HELMET HAT PUNCHER MelanieE: 1310: Pt outside to smoke. Remains alert and oriented. Aware that we are waiting to do blood draw again at 2 p.m. ET HAT PUNCHER * Lakeisha Abdi RN - 08/10/2009 12:38 PM HELMET HAT PUNCHER Emy BALDWIN back to room to visit with pt. Pt continues to remain alert, awake , watching TV. safe and vault mechanic has left to get pt some lunch. ET HAT PUNCHER * Lakeisha Abdi RN - 08/10/2009 12:22 PM HELMET HAT PUNCHER Alert, oriented, visiting with hemodialysis patient care specialist. States that she has been telling [employer] that she needs 02 more than just at night, but that "nothing has been done about it." Pt aware that she needs to contact her PCP to get the order for this. ET HAT PUNCHER * Lakeisha Abdi RN - 08/10/2009 11:58 AM HELMET HAT PUNCHER Pt awake, alert, requesting to use telephone to contact her . 02 sats 100% at this time. ET HAT PUNCHER * Emy Bran ARNP - 08/10/2009 11:42 AM HELMET HAT PUNCHER HISTORY OF PRESENT ILLNESS Jerald Velazquez, a 39 y.o. female presents to the ED with a Chief Complaint o f Shoulder Pain and Lethargy Patient is a 39 y.o. female presenting with shoulder pain and lethargy. The hist ory is provided by the patient. Shoulder Pain This is a new problem. The current episode started 3 to 5 hours ago. The problem occurs constantly. The problem has been gradually worsening. The pain is present in the left shoulder. The pain quality is described as aching. Associated symp toms include numbness and limited range of motion. Pertinent negatives include n o stiffness, no tingling and no itching. She has tried nothing for the symptoms. There has been no history of trauma. Lethargy This is a new problem. The current episode started 3 to 5 hours ago. The problem occurs constantly. Pertinent negatives include no chest pain, no abdominal pain, no headaches and no shortness of breath. REVIEW OF SYSTEMS Review of Systems Respiratory: Negative for shortness of breath. Cardiovascular: Negative for chest pain. Gastrointestinal: Negative for abdominal pain. Skin: Negative for itching. Neurological: Positive for numbness. Negative for tingling and headaches. PAST MEDICAL HISTORY REVIEWED Past [...] 04/19/2009 SIGMOIDOSCOPY performed by MUKESH DOMÍNGUEZ at [facility] OR Pt denies relevant surgical history [...] Puffs by inhalation every 6 hours. 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 CITALOPRAM (CELEXA) 40 MG ORAL TAB Take 1 Tab by mouth daily. CYCLOBENZAPRINE (FLEXERIL) 10 MG ORAL TABLET [...] CPDR Take 1 Cap by mouth daily. DULOXETINE (CYMBALTA) 60 MG ORAL CPDR [...] 1 Cap by mouth 2 times daily. SUMATRIPTAN-NAPROXEN (TREXIMET) 85-500 MG ORAL TABLET Take [...] this Encounter PHYSICAL EXAM Initial Vitals BP 08/10/09 1040 152/32 mmHg Pulse 08/10/09 1040 78 Resp 08/10/09 1040 12 Temp 08/10/09 1040 97.3 F (36.3 C) Temp src 08/10/09 1040 Oral SpO2 08/10/09 1040 98 % Physical Exam Constitutional: She is oriented. She appears well-developed and well-nourished. She appears lethargic. HENT: Head: Normocephalic and atraumatic. Nose: Nose [...] range of motion. She exhibits no edema. Left shoulder: She exhibits tenderness. She exhibits normal range of motion , no bony tenderness, no swelling, no effusion, no crepitus, no deformity and no rmal strength. Lymphadenopathy: She has no cervical adenopathy. Neurological: She is oriented. She appears lethargic. Skin: Skin is warm and dry. Psychiatric: She has a normal mood and affect. Her behavior is normal. Her speec h is slurred. MDM Coding Reviewed: previous chart, nursing note and vitals DIAGNOSTICS LAB: Results for orders placed during the hospital encounter of 08/10/09 (from the [facility] 24 hour(s)) BLOOD GAS ARTERIAL Component Value Range PH ARTERIAL 7.28 (*) 7.35-7.45 PO2 ARTERIAL 63 (*) 80-100 PCO2 ARTERIAL 56 (*) 32-45 HCO3 ARTERIAL 26.3 - TCO2, ARTERIAL 28.0 24-28 BASE EXCESS ABG -1.3 - O2 SAT EST ARTERIAL 89 (*) 90-97 (%) ALLENS TEST OK - [facility] SITE RIGHT RADIAL - DRUG SCREEN, URINE Component Value Range AMPHETAMINE QUAL, URINE Positive - BARBITURATE QUAL, URINE Negative - BENZODIAZEPINE QUAL, URINE Negative - COCAINE METAB QUAL URINE Negative - CANNABINOIDS QUAL, URINE Negative - METHADONE QUAL, URINE Negative - OPIATE QUAL, URINE Negative - PCP QUAL, URINE Negative - ETHANOL LEVEL Component Value Range ETHANOL LESS THAN 10 - (mg/dl) CBC WITH MANUAL DIFFERENTIAL Component Value Range EOSINOPHILS 1 0-8 (%Manual) NEUTROPHILS, SEG 67 30-68 (%Manual) LYMPHOCYTES 24 14-50 (%Manual) MONOCYTE 8 0-11 (%Manual) PLATELET EST. Normal - WBC ESTIMATE Increased - WBC 12.51 (*) 3.0-10.4 (x10E3) RBC 4.44 3.77-4.97 (x10E6) HEMOGLOBIN 13.4 11.9-15.0 (g/dL) HEMATOCRIT 40.7 34.4-43.6 (%) MCV 91.7 79-100 (fL) MCH 30.2 28-34 (pg) MCHC 32.9 (*) 33-36 (g/dL) RDW 14.3 11.5-15.1 (%) PLATELETS 200 148-408 (x10E3) MPV 8.3 7.4-10.6 (fL) NEUTROPHILS 68.7 43-73 (%) LYMPHOCYTES 21.6 19-47 (%) MONOCYTES 5.6 3-9 (%) EOSINOPHILS 4.0 0-6 (%) BASOPHILS 0.1 0-1.2 (%) NEUTROPHIL ABSOLUTE 8.60 (*) 1.3-7.6 (x10E3) LYMPHOCYTE ABSOLUTE 2.69 0.6-4.9 (x10E3) MONOCYTE ABSOLUTE0.70 0.1-0.9 (x10E3)EOSINOPHIL ABSOLUTE0.50 (*)0.0-0.2 (x 10E3)BASOPHILS ABSOLUTE0.01 0-0.1 (x10E3)URINALYSIS WITH REFLEX CULTURECompon entValueRangeGLUCOSE UANegative - (mg/dl)BILIRUBIN UANegative - KETONES UANegative - (mg/dl)SPECIFIC GRAVITY UA1.020 - PH UA5.0 - PROTEIN UATr isis - (mg/dl)UROBILINOGEN UA0.2 0.2-1.0 (EU/dl)NITRITE UANegative - BLO OD UASmall - LEUKOCYTE ESTERASE UASmall (*)- WBC UA5-10 (*)0-5 (/HPF)RB C UA5-10 (*)0-5 (/HPF)BACTERIA UA1+ - (/HPF)COMMENT, URINESee Culture Repo rt. - TROPONINComponentValueRangeTROPONIN ILESS THAN 0.04 0-0.4 (ng/ml)MYOGLO BINComponentValueRangeMYOGLOBIN, OYQRXA954 (*)9-83 (ng/ml)COMPREHENSIVE METAB OLIC GRZVWMtzlpfzoiYqdicJueknPLRGURV807 (*)70-100 (mg/dl)BUN16.0 7-20 (mg/ dl)CREATININE0.86 0.6-1.0 (mg/dl)BUN/CREAT RATIO18.6 10-20 GFR79 - (ml/ min)WUQHLT625 135-145 (mmol/L)POTASSIUM3.6 3.3-4.8 (mmol/L)XRYQRMTJ328 98-107 (mmol/L)CO224.7 22-31 (mmol/L)ANION GAP13 4-20 CALCIUM8.3 (*)8.5 -10.1 (mg/dl)ALBUMIN3.7 3.4-5.0 (g/dl)TOTAL PROTEIN7.6 6.4-8.2 (g/dl)GL OBULIN (CALC)3.9 - ALBUMIN/GLOBULIN RATIO0.9 - BILIRUBIN TOTAL0.3 - (mg/dl )ALKALINE IQMOFRVISCU476 50-136 (IU/L)AST15 10-40 (IU/L)ALT45 25-70 (IU /L)POC GLUCOSEComponentValueRangePOC YCFMZZW346 (*)70-110 (mg/dl)POC GLUCO SE GRAPH QIAVL918 (*)70-110 (mg/dl)P-IZSHDEezncbvvzCkqqdUrvyuQ-WHFGP QUANTLes s than 100 0-400 (ng/mL)PROTIME-AYCCcnfqbfqmQbzohEryfmWXDRSQF65.6 (*)9.5-11.5 (Sec)INR4.48 (*)2.0-3.0 DRUG SCREEN, URINEComponentValueRangeOPIATE QUAL, URINENegative - BLOOD GAS ARTERIALComponentValueRangePH ARTERIAL7.33 (*)7.35- 7.45 PO2 RUVRDDCW30 80-100 PCO2 POOTZEHX14 (*)32-45 HCO3 PZXDWSHK90.8 - TCO2, KBWSJUAM46.3 24-28 BASE EXCESS ABG-0.6 - O2 SAT EST SHENIJBD19 90-97 (%)ALLENS TESTBRACHIAL DRAW - PUNC SITELEFT BRACHIAL - MYOGLOBINComp onentValueRangeMYOGLOBIN, PEEKHD635 (*)9-83 (ng/ml)TROPONINComponentValueRang eTROPONIN ILESS THAN 0.04 0-0.4 (ng/ml) RADIOLOGY: XR SHOULDER 2+ VW LEFTRadiologist Impression: No acute changes EKG: ST, no st changes PROCEDURES MEDICAL DECISION MAKING AND PLAN OF CARE Pt responded to narcan in ed, however remained awake remainder of ED visit, past 1/2life of narcan. Pt states she is taking oxycontin 20mg bid, urine confirmed x 2 neg opiates, will sent to [facility] for confirmation. ? If pt is truly getting narcotics, however may think she is. Family and caregivers dispense the meds. Pt with heavy underlying psychological issues. May need neuro/psych referral Last vitals BP 122/69 | Pulse 108 | Temp(Src) 97.3 F (36.3 C) (Oral) | Resp 16 | Wt 158.759 kg | SpO2 96% | LMP Hysterectomy CLINICAL IMPRESSION Encounter DiagnosesCodeNamePrimary?719.41JShoulder Zrlu912.57CSleep Apnea CASE DISCUSSED PATIENT COUNSELING Diagnostics reviewed and questions answered. Diagnosis, treatment options and p radha of care discussed with understanding verbalized. DISPOSITION, EDUCATION AND MEDICATION RECONCILIATION Medications reconciled. See after visit summary for patient education on discha rged patients. * Lakeisha Abdi RN - 08/10/2009 11:31 AM HELMET HAT PUNCHER Remains sitting in wheelchair, extremely lethargic, falls asleep easily. But aw akens easily to verbal stimuli. No further c/o. ET HAT PUNCHER * Lakeisha Abdi RN - 08/10/2009 11:00 AM HELMET HAT PUNCHER To x-ray per wheelchair. ET HAT PUNCHER * Lakeisha Abdi RN - 08/10/2009 10:43 AM HELMET HAT PUNCHER Pt extremely drowsy, but arouses easily to verbal stimuli. States that she is dr owsy because she missed her adderal this morning. Caregiver with pt states that pt gets this way when she misses her meds. Pt c/o left shoulder pain and not being able to lift the shoulder, similar to wh en she had problems with the rt rotator cuff. Catheter bag leaking on arrival to the ER, dripping urine on floor. Bag changed . ET HAT PUNCHER * Lakeisha Abdi RN - 08/10/2009 10:26 AM HELMET HAT PUNCHER Pt not in waiting room. Reg film rental clerk reports that pt stated she was just going to "step right outside." ET HAT PUNCHER documented in this encounter Plan of Treatment Order Schedule Name Type Priority Associated Diag noses ONE TIME for 1 Occurrences starting 02/2010 until 08/10/2009 GLUCOSE LEVEL Lab Stat documented as of this encounter Procedures Comments Procedure Name Priority Date/Time Associated Diag nosis EKG 12 LEAD UNIT Stat 08/12/2009 PERFORMED 12:03 PM HELMET HAT PUNCHER TROPONIN Routine 08/10/2009 2:33 PM HELMET HAT PUNCHER MYOGLOBIN Routine 08/10/2009 2:33 PM HELMET HAT PUNCHER BLOOD GAS ARTERIAL Stat 08/10/2009 2:33 PM HELMET HAT PUNCHER DRUG SCREEN, URINE Stat 08/10/2009 12:50 PM HELMET HAT PUNCHER PROTIME-INR Stat 08/10/2009 12:17 PM HELMET HAT PUNCHER BLOOD GAS ARTERIAL Stat 08/10/2009 11:23 AM HELMET HAT PUNCHER D-DIMER Stat 08/10/2009 11:18 AM HELMET HAT PUNCHER CBC WITH MANUAL Stat 08/10/2009 DIFFERENTIAL 11:18 AM HELMET HAT PUNCHER TROPONIN Stat 08/10/2009 11:18 AM HELMET HAT PUNCHER MYOGLOBIN Stat 08/10/2009 11:18 AM HELMET HAT PUNCHER ETHANOL LEVEL Stat 08/10/2009 11:18 AM HELMET HAT PUNCHER COMPREHENSIVE METABOLIC Stat 08/10/2009 PANEL 11:18 AM HELMET HAT PUNCHER URINALYSIS WITH REFLEX Stat 08/10/2009 CULTURE 11:10 AM HELMET HAT PUNCHER MISCELLANEOUS LAB TEST Stat 08/10/2009 11:10 AM HELMET HAT PUNCHER DRUG SCREEN, URINE Stat 08/10/2009 11:10 AM HELMET HAT PUNCHER URINE CULTURE Stat 08/10/2009 11:10 AM HELMET HAT PUNCHER XR SHOULDER 2+ VW LEFT Stat 08/10/2009 11:06 AM HELMET HAT PUNCHER POC GLUCOSE Routine 08/10/2009 10:39 AM HELMET HAT PUNCHER documented in this encounter Results * EKG 12 LEAD UNIT PERFORMED (08/12/2009 12:03 PM HELMET HAT PUNCHER) Narrative Performed At This result has an attachment that is n ot available. Procedure Note Sukhi Whipple MD - 08/11/2009 8:11 AM HELMET HAT PUNCHER [facility]. [address] [place] [id number] EKG JERALD VELAZQUEZ [id number] 08/10/09 at 1140. The rhythm is regular, rapid, sinus in origin with a rate of 103 beats per minute. RSR' complexes are noted in V1 and V2. Abnormal R wave progression is seen across the chest with loss of R wave potential from V2 to V3 and a pretransitional Q wave IN V3. Q waves are prominent in limb lead III without abnormal Q waves in leads II or aVF. Compared with previous tracing dated June 07 2009, Q waves are more prominent in limb lead III currently and R wave progression occurs in an drug safety coordinator fashion across the chest previously. Diagnosis: 1) Sinus tachycardia, rate 103 beats per minute. 2) Incomplete right bundle branch block. 3) Abnormal R wave progression, anterior chest leads. Anterior wall myocardial infarct of undetermined age cannot be completely ruled out. 4) Borderline inferior limb lead Q waves, old inferior wall myocardial in farct cannot be completely ruled out. Dictated by SMacario. Dictated by: EKG DD 08/11/09 TD 08/11/09/LRG EKG REPORT # [id number] ORDER # Transcriptions 08/12/2009 12:00 PM HELMET HAT PUNCHER * TROPONIN (08/10/2009 2:33 PM HELMET HAT PUNCHER) TROPONIN I LESS THAN 0.04Comment: 0 - 0.4 ng/ml [facility] ACCT#[id number], ,,,, RE[facility] LAB Specimen Blood specimen (specimen) Performing Organization Address [facility] one Number [facility] CLIA# [id number] Milly RIOJAS [id number] [facility] [address] [place] [address] * MYOGLOBIN (08/10/2009 2:33 PM HELMET HAT PUNCHER) Pathologist [facility] MYOGLOBIN, 140 (H)Comment: 9 - 83 ng/ml [facility] ACCT#[id number], ,,,, REBA LAB Specimen Blood specimen (specimen) Performing Organization Address [facility] Ph one Number [facility] [id number] Milly RIOJAS [id number] [facility] [address] [place] [address] * BLOOD GAS ARTERIAL (08/10/2009 2:33 PM HELMET HAT PUNCHER) PH ARTERIAL 7.33 (L) 7.35 - 7.45 [facility] AL[facility] PO2 ARTERIAL 88 80 - 100 [facility] REBA [facility] PCO2 ARTERIAL 49 (H) 32 - 45 [facility] HCO3 ARTERIAL 25.8 [facility] TCO2, ARTERIAL 27.3 24 - 28 [facility] BASE EXCESS ABG -0.6 [facility] O2 SAT EST 96 90 - 97 % [facility] ALYSA REBA [facility] ALLENS TEST BRACHIAL DRAW [facility] PUNC SITE LEFT BRACHIALComment: [facility] ACCT#[id number], ,,,, REBA LAB Specimen Arterial blood specimen (specimen) Performing Organization Address [facility] Ph one Number INTERFACE SYSTEM [facility] CLIA# [id number] Milly RIOJAS [id number] [facility] [address] [place] [address] * DRUG SCREEN, URINE (08/10/2009 12:50 PM HELMET HAT PUNCHER) OPIATE QUAL, NegativeComment: [facility] URINE [facility] ACCT#[id number], ,,,, RE[facility] LAB Specimen Urinary catheter specimen (specimen) Performing Organization Address [facility] Ph one Number INTERFACE SYSTEM [facility] CLIA# [id number] Milly RIOJAS [id number] * PROTIME-INR (08/10/2009 12:17 PM HELMET HAT PUNCHER) PROTIME 42.6 (H) 9.5 - 11.5 Sec [facility] INR 4.48 (H)Comment: 2.0 - 3.0 [facility] ACCT#[id number], ,,,, REBA LAB Specimen Blood specimen (specimen) Performing Organization Address [facility] Ph one Number INTERFACE SYSTEM [facility] CLIA# [id number] Milly RIOJAS [id number] REBA LAB [address] * BLOOD GAS ARTERIAL (08/10/2009 11:23 AM HELMET HAT PUNCHER) Pathologist [facility] PH ARTERIAL 7.28 (LL) 7.35 - 7.45 [facility] Comment: [facility] Called to: 7.28 REBA LAB Test results read back. Called by: Jaron Bee 08/10/09 1138 PO2 ARTERIAL 63 (L) 80 - 100 [facility] PCO2 ARTERIAL 56 (H) 32 - 45 [facility] HCO3 ARTERIAL 26.3 [facility] TCO2, ARTERIAL 28.0 24 - 28 [facility] BASE EXCESS ABG -1.3 [facility] O2 SAT EST 89 (L) 90 - 97 % [facility] REBA LAB ALLENS TEST OK [facility] AL[facility] PUNC SITE RIGHT RADIALComment: [facility] ACCT#[id number], ,,,, REBA LAB Specimen Arterial blood specimen (specimen) Performing Organization Address [facility] Ph one Number [facility]# [id number] [facility] Milly STEWART S [id number] RE[facility] [address] [place] [address] * D-DIMER (08/10/2009 11:18 AM HELMET HAT PUNCHER) [facility] D-DIMER QUANT Less than 100 0 - 400 ng/mL [facility] Comment: [facility] 90% of patients testing below IMPERIAL LAB 400 ng/ml have proven negative for Thromboembolic Events. [facility] ACCT#[id number], ,,,, Specimen Blood specimen (specimen) Performing Organization Address [facility] one Number [facility]# [id number] [facility] Milly STEWART S [id number] RE[facility] [address] [place] [address] * COMPREHENSIVE METABOLIC PANEL (08/10/2009 11:18 AM HELMET HAT PUNCHER) [facility] GLUCOSE 128 (H) 70 - 100 mg/dl [facility] BUN 16.0 7 - 20 mg/dl [facility] REBA LAB CREATININE 0.86 0.6 - 1.0 mg/dl [facility] BUN/CREAT RATIO 18.6 10 - 20 [facility] GFR 79 >90 ml/min [facility] LAB SODIUM 138 135 - 145 mmol/L [facility] POTASSIUM 3.6 3.3 - 4.8 mmol/L [facility] CHLORIDE 104 98 - 107 mmol/L [facility] CO2 24.7 22 - 31 mmol/L [facility] ANION GAP 13 4 - 20 [facility] CALCIUM 8.3 (L) 8.5 - 10.1 mg/dl [facility] ALBUMIN 3.7 3.4 - 5.0 g/dl [facility] TOTAL PROTEIN 7.6 6.4 - 8.2 g/dl [facility] GLOBULIN (CALC) 3.9 [facility] ALBUMIN/GLOBULI 0.9 [facility] BILIRUBIN TOTAL 0.3 <1.1 mg/dl [facility] ALKALINE 115 50 - 136 IU/L [facility] LAB AST 15 10 - 40 IU/L [facility] LAB ALT 45Comment: [facility] 25 - 70 IU/L [facility] ACCT#[id number], ,,,, [facility] Specimen Blood specimen (specimen) Performing Organization Address [facility] Ph one Number INTERFACE [facility] CLIA# [id number] Milly RIOJAS [id number] [address] [address] [place] [address] * MYOGLOBIN (08/10/2009 11:18 AM HELMET HAT PUNCHER) MYOGLOBIN, 308 (H)Comment: 9 - 83 ng/ml [facility] PLASMA [facility]#[id number], ,,, REBA LAB Specimen Blood specimen (specimen) Performing Organization Address City/[facility] Ph one Number INTERFACE [facility]# [id number] Milly RIOJAS S [address] [address] [place] [address] * TROPONIN (08/10/2009 11:18 AM HELMET HAT PUNCHER) TROPONIN I LESS THAN 0.04Comment: 0 - 0.4 ng/ml [facility]#[id number], ,,,, REBA LAB Specimen Blood specimen (specimen) Performing Organization Address City/State/Zipcode Ph one Number INTERFACE SYSTEM [facility] ALYSA BENTONIA# [id number] ALYSA STEWARTMilly [id number] REBA LAB [address] [facility] [facility] * CBC WITH MANUAL DIFFERENTIAL (08/10/2009 11:18 AM HELMET HAT PUNCHER) EOSINOPHILS 1 0 - 8 %[facility] ALYSA STEWART LAB NEUTROPHILS, 67 30 - 68 %Manual [facility] ALYSA REBA LAB LYMPHOCYTES 24 14 - 50 %[facility] ALYSA REBA LAB MONOCYTE 8 0 - 11 %[facility] ALYSA REBA LAB PLATELET EST. Normal [facility] ALYSA STEWART LAB WBC ESTIMATE Increased [facility] ALYSA REBA LAB WBC 12.51 (H) 3.0 - 10.4 x10E3 [facility] ALYSA REBA LAB RBC 4.44 3.77 - 4.97 x10E6 [facility] ALYSA STEWART LAB HEMOGLOBIN 13.4 11.9 - 15.0 g/dL [facility] ALYSA STEWART LAB HEMATOCRIT 40.7 34.4 - 43.6 % [facility] ALYSA STEWART LAB MCV 91.7 79 - 100 fL [facility] ALYSA REBA LAB MCH 30.2 28 - 34 pg [facility] ALYSA STEWART LAB MCHC 32.9 (L) 33 - 36 g/dL [facility] ALYSA STEWART LAB RDW 14.3 11.5 - 15.1 % [facility] ALYSA REBA LAB PLATELETS 200 148 - 408 x10E3 [facility] ALYSA STEWART LAB MPV 8.3 7.4 - 10.6 fL [facility] ALYSA STEWART LAB NEUTROPHILS 68.7 43 - 73 % [facility] ALYSA STEWART LAB LYMPHOCYTES 21.6 19 - 47 % [facility] ALYSA STEWART LAB MONOCYTES 5.6 3 - 9 % [facility] ALYSA STEWART LAB EOSINOPHILS 4.0 0 - 6 % [facility] ALYSA STEWART LAB BASOPHILS 0.1 0 - 1.2 % [facility] ALYSA REBA LAB NEUTROPHIL 8.60 (H) 1.3 - 7.6 x10E3 [facility] ALYSA STEWART LAB LYMPHOCYTE 2.69 0.6 - 4.9 x10E3 [facility] ALYSA STEWART LAB MONOCYTE 0.70 0.1 - 0.9 x10E3 [facility] ALYSA REBA LAB EOSINOPHIL 0.50 (H) 0.0 - 0.2 x10E3 [facility] ALYSA STEWART LAB BASOPHILS 0.01Comment: [facility] 0 - 0.1 x10E3 [facility] ACCT#[id number], ,,,, [facility] REBA LAB Specimen Blood specimen (specimen) Performing Organization Address [facility] Ph one Number [facility]# [id number] Milly RIOJAS [id number] RE[facility] [address] [place] [address] * ETHANOL LEVEL (08/10/2009 11:18 AM HELMET HAT PUNCHER) ETHANOL LESS THAN 10 <10 mg/dl [facility] Comment: [facility] Chain of Custody Handling was REBA LAB not performed on this specimen. This test will not meet medical-legal requirements. [facility] ACCT#[id number], ,,,, Specimen Blood specimen (specimen) Performing Organization Address [facility] one Cox NorthIA# [id number] Milly RIOJAS [id number] RE[facility] [address] [place] [address] * MISCELLANEOUS LAB TEST (08/10/2009 11:10 AM HELMET HAT PUNCHER) Specimen Specimen of unknown material (specimen) Narrative Performed At [facility] Confirmation lab urine for opiates ALYSA STEWART LAB Transcriptions 08/18/2009 1:00 PM CDT Performing Organization Address [facility] one Number [facility] CLIA# [id number] MIGUE RIOJAS [address] - ALYSA STEWART [address] [place], [place] [address]IA# [id number] Milly RIOJAS [address] [address] [address] [place] [address] * URINE CULTURE (08/10/2009 11:10 AM HELMET HAT PUNCHER) ORGANISM ESCHERICHIA COLI (A) INTERFACE SYSTEM URINE CULTURE COLONY COUNT: >100,000 * INTERFA CE SYSTEM Specimen Antibiotic Method Susceptibility Organism AMIKACIN DOMENICA MCG/ML <=2: Susceptible Escherichia coli AMPICILLIN DOMENICA MCG/ML >=32: Resistant Escherichia coli AMPICILLIN/ SULBACTAM DOMENICA MCG/ML >=32: Resistant Escherichia coli CEFAZOLIN DOMENICA MCG/ML <=4: Susceptible Escherichia coli CEFEPIME DOMENICA MCG/ML <=1: Susceptible Escherichia coli CEFTAZIDIME DOMENICA MCG/ML <=1: Susceptible Escherichia coli CEFTRIAXONE DOMENICA MCG/ML <=1: Susceptible Escherichia coli CIPROFLOXACIN DOMENICA MCG/ML >=4: Resistant Escherichia coli ERTAPENEM DOMENICA MCG/ML <=0.5: Susceptible Escherichia coli GENTAMICIN DOMENICA MCG/ML <=1: Susceptible Escherichia coli IMIPENEM DOMENICA MCG/ML <=1: Susceptible Escherichia coli LEVOFLOXACIN DOMENICA MCG/ML >=8: Resistant Escherichia coli NITROFURANTOIN DOMENICA MCG/ML <=16: Susceptible Escherichia coli PIPERACILLIN/ TAZOBACTAM DOMENICA MCG/ML 8: Susceptible Escherichia coli TOBRAMYCIN DOMENICA MCG/ML <=1: Susceptible Escherichia coli TRIMETHOPRIM/ SULFAMETHOXAZOLE DOMENICA MCG/ML >=320: Resistant Escherichia coli Comment: [facility]up[facility] ACCT#[id number], ,,,, Performing Organization Address [facility] Ph one Number INTERFACE SYSTEM INTERFACE SYSTEM Refer to clinic/hospital department * URINALYSIS WITH REFLEX CULTURE (08/10/2009 11:10 AM HELMET HAT PUNCHER) GLUCOSE UA Negative Negative mg/dl [facility] ALYSA STEWART LAB BILIRUBIN UA Negative Negative [facility] ALYSA STEWART LAB KETONES UA Negative Negative mg/dl [facility] ALYSA STEWART LAB SPECIFIC 1.020 [facility] GRAVITY UA [place] ALYSA STEWART LAB PH UA 5.0 [facility] ALYSA STEWART LAB PROTEIN UA Trace Negative mg/dl [facility] ALYSA STEWART LAB UROBILINOGEN UA 0.2 0.2 - 1.0 EU/dl [facility] ALYSA STEWART LAB NITRITE UA Negative Negative [facility] ALYSA STEWART LAB BLOOD UA Small Negative [facility] ALYSA STEWART LAB LEUKOCYTE Small (H) Negative [facility] ESTERASE UA [place] ALYSA STEWART LAB WBC UA 5-10 (H) 0 - 5 /HPF [facility] ALYSA STEWART LAB RBC UA 5-10 (H) 0 - 5 /HPF [facility] ALYSA STEWART LAB BACTERIA UA 1+ Negative /HPF [facility] ALYSA STEWART LAB COMMENT, URINE See Culture Report.Comment: [facility] H[facility]PITALRANDYMIG[facility] ST[facility]ART [facility] ACCT#[id number], ,,,, REBA LAB Specimen Urinary catheter specimen (specimen) Performing Organization Address [facility]/Zipcode Ph one Number INTERFACE [facility]# [id number] Milly RIOJAS S [address] [facility] [address] [place] [address] * DRUG SCREEN, URINE (08/10/2009 11:10 AM HELMET HAT PUNCHER) AMPHETAMINE Positive [facility]ALTH QUAL, [facility] BARBITURATE Negative [facility] QUAL, UR[facility] BENZODIAZEPINE Negative [facility] HEALTH QUAL, [facility] COCAINE METAB Negative [facility] HEALTH QUAL [facility] CANNABINOIDS Negative [facility] HEALTH QUAL, [facility] METHADONE QUAL, Negative [facility] OPIATE QUAL, Negative [facility] URINE [facility] PCP QUAL, URINE Negative [facility] Comment: [facility] Chain of Custody Handling was REBA LAB not performed on this specimen. This screen will not meet medical-legal requirements. CUTOFF LIMITS Amphetamines 1000 ng/ml Barbiturates 200 ng/ml Benzodiazepines 200 ng/ml Cocaine metabolite 300 ng/ml Marijuana metabolites 50 ng/ml Methadone 300 ng/ml Opiates 2000 ng/ml PCP 25 ng/ml [facility]MIGUE STEWART ACCT#[id number], ,,,, Specimen Urinary catheter specimen (specimen) Performing Organization Address City/State/[facility] one [facility] INTERFACE [facility]# [id number] Milly RIOJAS [address] * XR SHOULDER 2+ VW LEFT (08/10/2009 11:06 AM HELMET HAT PUNCHER) Specimen Narrative Performed At Reason For Exam: Pain LEFT SHOULDER: AP internally and externally rotated vi ews and a Y view show no fracture or subluxation. Mild degenerative melvin nge is noted involving the glenohumeral joint space. Procedure Note Macho Barrios MD - 08/10/2009 4:15 PM HELMET HAT PUNCHER Reason For Exam: Pain LEFT SHOULDER: AP internally and externally rotated views and a Y view show no fracture or subluxation. Mild degenerative change is noted involving the glenohumeral joint space. * POC GLUCOSE (08/10/2009 10:39 AM HELMET HAT PUNCHER) POC GLUCOSE 119 (H)Comment: Eugene 70 - 110 mg/dl [facility] Migue Stewart, Point of Care [facility],,,, REBA LAB POC GLUCOSE 119 (H) 70 - 110 mg/dl [facility] ALYSA STEWART LAB Specimen Performing Organization Address City/State/Zipcode Ph one Number INTERFACE SYSTEM [facility] ALYSA GERARDO# [id number] ALYSA Milly STEWART [id number] REBA LAB 401 [facility] documented in this encounter Visit Diagnoses Diagnosis Shoulder pain Pain in joint, shoulder region Sleep apnea Unspecified sleep apnea documented in this encounter Administered Medications Action Date Dose Rate Site Medication Order MAR Action 08/10/2009 11:53 AM HELMET HAT PUNCHER 0.4 mg naloxone (NARCAN) 0.4 mg/mL injection Given 0.4 mg 0.4 mg, IV, ONE TIME ONLY, 1 dose, 08/10/09 at 1145, Routine 08/10/2009 12:43 PM HELMET HAT PUNCHER 0.4 mg nitroglycerin (NITROSTAT) tablet 0.4 mg Given 0.4 mg, Sublingual, EVERY 5 MINUTES PRN , Starting 08/10/09 at 1239, Until 08/10/09 at 1748, Chest Pain, Routine 08/10/2009 11:55 AM HELMET HAT PUNCHER 3 mL sodium chloride 0.9 % flush injection 10 Given mL 10 mL, IV, SEE ADMIN INSTRUCTIONS, Starting 08/10/09 at 1212, Until Tue 10 at 1748, Routine SODIUM CHLORIDE 0.9 % SYRINGE 1 dose, Starting 08/10/09 at 1144, Until 08/10/09 at 1155, Created by cabinet override pull, documented in this encounter
--- OUTSIDE RECORDS SUMMARY | 2019-10-21 18:33 | XMS REPORT | Encounter Summary ---
Author Author [facility] Organization [facility] Address Unknown Phone Unavailable Care Team Providers Care Export Manager Name Role Phone Phong Stephens MD PCP Unavailable Encounter Details Care Team Description Date Type Department Phong Stephens MD NO ADDRESS ON FILE Neck Pain; Back Pain 07/21/2009 Orders Only [facility] Primar y Care [address] [place] [address] Social History Date Tobacco Use [...] 2 OR 3 VW (07/21/2009 1:23 PM SCHEDULE MANAGER) Specimen Impressions Performed At : Mild degenerative [...] Macho Barrios MD - 07/21/2009 3:43 PM SCHEDULE MANAGER LUMBAR SPINE: INDICATIONS: BACK PAIN AP and [...] disc change without acute bony abnormality identified. * XR CERVICAL SPINE 2 OR 3 VW (07/21/2009 1:23 PM SCHEDULE MANAGER) Specimen Impressions Performed At : Limited examination due to overlying so ft tissues demonstrating degenerative change involving the mid c ervical spine. The lower cervical spine is not well visualized. Narrative Performed At CERVICAL SPINE SERIES: INDICATIONS: NECK PAIN. AP, lateral and open-mouth views were o btained. Angled odontoid view also obtained. There was suboptimal visual ization of the cervical spine due to overlying soft tissues. There are deg enerative changes noted with disc space narrowing at C3-4 and C5-6. Bibiana ss fractures are not identified. C6 and C7 are suboptimally visualized on l ateral. Procedure Note Macho Barrios MD - 07/21/2009 3:43 PM SCHEDULE MANAGER CERVICAL SPINE SERIES: INDICATIONS: NECK PAIN. AP, lateral and open-mouth views were obtained. Angled odontoid view also obtained. There was suboptimal visualization of the cervical spine due to overlying soft tissues. There are degenerative changes noted with disc space narrowing at C3-4 and C5-6. Gross fractures are not identified. C6 and C7 are suboptimally visualized on lateral. IMPRESSION: Limited examination due to overlying soft tissues demonstrating degenerative change involving the mid cervical spine. The lower cervical spine is not well visualized. documented in this encounter Visit Diagnoses Diagnosis Neck pain Cervicalgia Back pain Backache, unspecified documented in this encounter
--- OUTSIDE RECORDS SUMMARY | 2019-10-21 18:33 | XMS REPORT | Encounter Summary ---
Author Author [facility] Organization [facility] Address Unknown Phone Unavailable Care Team Providers Care Test Driver Name Role Phone Phong Stephens MD PCP Unavailable Reason for Visit * Reason Comments Medication Refill Encounter Details Care Team Description Date Type Department Phong Stephens MD NO ADDRESS ON FILE 07/26/2009 Refill [facility] Primar y Care [address] [address] Social History Date Tobacco [...] encounter Miscellaneous Notes * Telephone Encounter - Pretty Grullon - 07/26/2009 4:49 PM CDL TRUCK DRIVER Pt requesting refill on oxycodone 10mg #20,last filled on 07/22/09. Request today is denied, pt had appt today and dnka. TRUCK DRIVER documented in this encounter Plan of Treatment Not on filedocumented as of this encounter Visit Diagnoses Not on filedocumented in this encounter
--- OUTSIDE RECORDS SUMMARY | 2019-10-21 18:33 | XMS REPORT | Encounter Summary ---
Author Author [facility] Organization [facility] Address Unknown Phone Unavailable Care Team Providers Care Chair Inspector Name Role Phone Phong Stephens MD PCP Unavailable Reason for Visit * Reason Comments Medication Question Request Ativan refill Encounter Details Care Team Description Date Type Department Jessica Christian Medication Question (Request Ativan refi ll) 08/03/2009 Telephone [facility] Primar Care [address] [address] Social History Date Tobacco Use [...] * Telephone Encounter - Jessica Christian - 08/03/2009 5:48 PM INVESTMENT SPECIALIST Request denied per Dr Stephens. STMENT SPECIALIST documented in this encounter Plan of Treatment Not on filedocumented as of this encounter Visit Diagnoses Not on filedocumented in this encounter
--- OUTSIDE RECORDS SUMMARY | 2019-10-21 18:33 | XMS REPORT | Encounter Summary ---
Author Author [facility] Organization [facility] Address Unknown Phone Unavailable Care Team Providers Care Visual Merchandising Associate Name Role Phone Phong Stephens MD PCP Unavailable Reason for Visit * Reason Comments ER Follow Up pain lower back Encounter Details Care Team Description Date Type Department Phong Stephens MD NO ADDRESS ON FILE Sleep Apnea; Narcolepsy; Back Pain 07/30/2009 Office Visit [facility] [address] [address] Social History Date Tobacco [...] Signs Reading Time Taken Comments Vital Sign 102/56 07/30/2009 11:25 AM STUDIO GRIP Blood Pressure 88 07/30/2009 11:25 AM STUDIO GRIP Pulse 37.3 C (99.1 F) 07/30/2009 11:25 AM STUDIO GRIP Temperature - - Respiratory Rate - - Oxygen Saturation - - Inhaled Oxygen Concentration - - Weight - - Height - - Body Mass Index documented in this encounter Progress Notes * Phong Stephens MD - 07/30/2009 9:26 PM STUDIO GRIP Subjective: Ayden Odom is a 39 y.o. [...] prior to encounter Medication Sig Dispense Refill cyclobenzaprine (FLEXERIL) 10 mg Oral tablet Take 1 Tab by mouth 3 times cathleen ly as needed for Spasm. 12 Tab None gabapentin (NEURONTIN) 300 mg Oral capsule Take [...] as needed for Nausea. 6 Tab None citalopram (CELEXA) 40 mg Oral Tab Take [...] Odom complains of the following (by systems): primary c/o today is pain chel in back and hands. oxycodone is not working alone and is out. also not sleeping appropriately and having trouble with narcollepsy . better when on concerta. has recently used ER care despite missing our appt an d earlier c/o she needs primaty care doc so she would not need to use ER Review of Systems: ROS Denies all of the following: Headache Dizziness Chest pain Shortness of breath Bowel changes Bladder changes Pain in muscle or joints Exam/Objective: Normal Exam for Routine Visits: \Blood pressure 102/56, pulse 88, temperature 99 .1 F (37.3 C), last menstrual period Hysterectomy. General appearance: chronic ill, acts sleepy, dropped cup in apparent demonstrat ion of her c/o weakness L hand, obese nourished, and in mild acute distress Lungs: breath sounds equal, clear to auscultation bilaterally, no retractions, n o stridor, normal respiratory effort Heart: regular rate and rhythm, S1, S2 normal, no murmur, click, rub, gallop, or abnormal sounds. Abdomen: soft, non-tender. Bowel sounds normal. No masses, no organomegaly. Ac tive bowel sounds. Extremities: symmetrical non edematous. standpipe tender NEUOR: very demonstrative with her problems, at time sits with her eye mostlly c losed and then awakens. Very difficlt historian and changes subject rapidly. Has made no effort to arrange psyhiatrist visit or keep appt with neurologist. Assessment and Plan: ASSESSMENT: Encounter Diagnoses Name Primary? Sleep Apnea Narcolepsy Back Pain PLAN: Orders Placed This Encounter Oxycodone-acetaminophen 10 mg-325 mg tab Amphetamine-dextroamphetamine sr 25 mg 24 hr cap diego make appt to see psychiatrist and keep appt to see Dr Pittman or we will not cont to fill meds. Also understands needs to keep reg appts here and not miss our appt and then go to er for non-emergency reasons. Appropriate medications prescribed (see detailed AVS). Appropriate patient instructions provided (see detailed AVS). Follow-up as I have indicated. Medications and options explained to include common side effects. Understanding of medications, course, diagnosis, and expectations were expressed by patient/g uardian. IO GRIP documented in this encounter Plan of Treatment Not on filedocumented as of this encounter Visit Diagnoses Diagnosis Sleep apnea Unspecified sleep apnea Narcolepsy Narcolepsy without cataplexy Back pain Backache, unspecified documented in this encounter
--- OUTSIDE RECORDS SUMMARY | 2019-10-21 18:33 | XMS REPORT | Encounter Summary ---
Author Author [facility] Organization [facility] Address Unknown Phone Unavailable Care Team Providers Care Air Compressor Operator Name Role Phone Phong Stephens MD PCP Unavailable Encounter Details Care Team Description Date Type Department Self, Bubba Hsieh MD [address] [place] [address] [facility], Lab Schedule 07/21/2009 [facility] Encounter Laboratory Services [address] [address] Social History Date Tobacco Use [...] Associated Diag nosis CBC WITH DIFFERENTIAL Routine 07/21/2009 Hematuri a 12:30 PM E BUSINESS SPECIALIST documented in this encounter Results * CBC WITH DIFFERENTIAL (07/21/2009 12:30 PM E BUSINESS SPECIALIST) WBC 9.54 3.0 - 10.4 x10E3 [facility] RBC 4.65 3.77 - 4.97 x10E6 [facility] HEMOGLOBIN 14.0 11.9 - 15.0 g/dL [facility] HEMATOCRIT 42.7 34.4 - 43.6 % [facility] MCV 91.8 79 - 100 fL [facility] MCH 30.2 28 - 34 pg [facility] MCHC 32.9 (L) 33 - 36 g/dL [facility] RDW 14.2 11.5 - 15.1 % [facility] PLATELETS 229 148 - 408 x10E3 [facility] MPV 8.0 7.4 - 10.6 fL [facility] NEUTROPHILS 51.1 43 - 73 % [facility] LYMPHOCYTES 37.0 19 - 47 % [facility] ALYSA BRITTON LAB MONOCYTES 7.1 3 - 9 % [facility] AL[facility]SA [facility] EOSINOPHILS 4.4 0 - 6 % [facility] ALYSA BRITTON [facility] BASOPHILS 0.4 0 - 1.2 % [facility] ALYSA BR[facility] NEUTROPHIL 4.88 1.3 - 7.6 x10E3 [facility] ALYSA BRITTON LAB LYMPHOCYTE 3.52 0.6 - 4.9 x10E3 [facility] ALYSA BRITTON LAB MONOCYTE 0.68 0.1 - 0.9 x10E3 [facility] ALYSA BRITTON LAB EOSINOPHIL 0.42 (H) 0.0 - 0.2 x10E3 [facility] ALYSA BRITTON LAB BASOPHILS 0.04Comment: [facility]ITALCLEMENTE LAND[facility] 0 - 0.1 x10E3 [facility] ACCT#[id number], ,,,, CENTER ALYSA BRITTON LAB Specimen Blood specimen (specimen) Performing Organization Address City/State/Zipcode Ph one Number INTERFACE SYSTEM [facility] ALYSA GERARDO# [id number] Milly RIOJAS [address] REBA [address] [facility] documented in this encounter Visit Diagnoses Diagnosis Hematuria Hematuria, unspecified documented in this encounter
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
--- OUTSIDE RECORDS SUMMARY | 2019-10-21 18:33 | XMS REPORT | Encounter Summary ---
Author Author [facility] Organization [facility] Address Unknown Phone Unavailable Care Team Providers Care Marketing Data Specialist Name Role Phone Phong Stephens MD PCP Unavailable Encounter Details Care Team Description Date Type Department 08/01/2009 Emergency [facility] Emergency Department [address] [address] Social History Date Tobacco Use [...] Before meals, at bedtime, and as needed 07/30/2009 08/30/2009 oxycodone-acetaminophen Take 1 Tab by [...] as of this encounter ED Notes * Yenny Nowak RN - 08/01/2009 5:02 PM FLOOR TRADER Pt advised this RN that she pulled on her suprapubic and that she now had pus in her catheter and its about to fall out. After talking with Dr. Ramirez he advis ed me to tell her to go to a hospital where her urologist is located which is [facility] with Dr. Christian. Pt agreed and left the ED waiting room. R TRADER documented in this encounter Plan of Treatment Not on filedocumented as of this encounter Visit Diagnoses Not on filedocumented in this encounter
--- OUTSIDE RECORDS SUMMARY | 2019-10-21 18:33 | XMS REPORT | Encounter Summary ---
Author Author [facility] Organization [facility] Address Unknown Phone Unavailable Care Team Providers Care Shredding Machine Tender Name Role Phone PCP Unavailable Reason for Visit * Reason Comments Cough x 5 days, sinus sx, smokes 1 alysha per day Pain wants methadone Encounter Details Care Team Description Date Type Department Phong Stephens MD NO ADDRESS ON FILE Urinary Retention (Primary Dx); Acute Sinusitis; Itch; Snoring; Bipolar Disorder, Unspecified 07/15/2009 Office Visit [facility] Primar Care [address] [address] Social History Date Tobacco [...] Reading Time Taken Comments Vital Sign 124/76 07/15/2009 3:06 PM SHERIFF'S SERGEANT Blood Pressure - - Pulse 37.1 C (98.8 F) 07/15/2009 3:06 PM SHERIFF'S SERGEANT Temperature - - Respiratory Rate - - Oxygen Saturation - - Inhaled Oxygen Concentration - - Weight - - Height - - Body Mass Index documented in this encounter Progress Notes * Phong Stephens MD - 07/18/2009 2:27 PM SHERIFF'S SERGEANT Subjective: Ayden Odom is a 39 y.o. [...] prior to encounter Medication Sig Dispense Refill gabapentin (NEURONTIN) 300 mg Oral capsule Take [...] systems): URI associated symtoms: sore throat, congestion, sinus pressure, non productive cough and low grade fevers chronic multiple problems and very difficult to get focused on single issue. ho wever cont with chronic pain and of course dipolar issues. she does recognize s he is on lots of meds without clear benefit. Review of Systems: ROS Denies all of the following: as an acute problem. Has long standing recurr ances of almost all systems. Headache Dizziness Chest pain Shortness of breath Bowel changes Bladder changes Exam/Objective: Normal Exam for Routine Visits: \Blood pressure 124/76, temperature 98.8 F (37 .1 C), last menstrual period Hysterectomy. General appearance:chroic ill and obese appearing, active, alert, cooperative, social, normally nourished, Lungs: breath sounds equal, clear to auscultation bilaterally, no retractions, n o stridor, normal respiratory effort Heart: regular rate and rhythm, S1, S2 normal, no murmur, click, rub, gallop, or abnormal sounds. Abdomen: soft, non-tender. Bowel sounds normal. No masses, no organomegaly. Ac tive bowel sounds. Extremities: symmetrical edematous. Assessment and Plan: ASSESSMENT: Encounter Diagnoses Name Primary? Urinary Retention Yes Acute Sinusitis Itch Snoring Bipolar Disorder, Unspecified PLAN: Orders Placed This Encounter Pr urinary leg or abdomen bag Amoxicillin 500 mg tab discussed need for psychologist care to recommend meds. [facility] Appropriate medications prescribed (see detailed AVS). Appropriate patient instructions provided (see detailed AVS). Follow-up as I have indicated. Medications and options explained to include common side effects. Understanding of medications, course, diagnosis, and expectations were expressed by patient/g uardian. IFF'S SERGEANT documented in this encounter Plan of Treatment Not on filedocumented as of this encounter Visit Diagnoses Diagnosis Urinary retention - Primary Retention of urine, unspecified Acute sinusitis Acute sinusitis, unspecified Itch Unspecified pruritic disorder Snoring Other dyspnea and respiratory abnormali ty Bipolar disorder, unspecified documented in this encounter
--- OUTSIDE RECORDS SUMMARY | 2019-10-21 18:33 | XMS REPORT | Encounter Summary ---
Author Author [facility] Organization [facility] Address Unknown Phone Unavailable Care Team Providers Care Nurse Practitioner Home Assessments Name Role Phone Phong Stephens MD PCP Unavailable Reason for Visit * Auth/Cert Referred By Contact Referred To Contact Status Reason Specialty Diagnoses / Procedures [facility] Services [address] [place] [phone] Closed Radiology Encounter Details Care Team Description Date Type Department Phong Stephens MD NO ADDRESS ON FILE 07/21/2009 [facility] Imaging Se rvices Encounter [address] [address] Social History Date Tobacco Use [...] Date/Time Associated Diag nosis XR CERVICAL SPINE 2 OR 3 Routine 07/21/2009 Neck Pain VIEWS 1:23 PM AD TAKER documented in this encounter Results * XR CERVICAL SPINE 2 OR 3 VW (07/21/2009 1:23 PM AD TAKER) Specimen Impressions Performed At : Limited examination [...] Macho Barrios MD - 07/21/2009 3:43 PM AD TAKER CERVICAL SPINE SERIES: INDICATIONS: NECK PAIN. AP, [...]
--- OUTSIDE RECORDS SUMMARY | 2019-10-21 18:33 | XMS REPORT | Encounter Summary ---
Author Author [facility] Organization [facility] Address Unknown Phone Unavailable Care Team Providers Care Pediatrics Teacher Name Role Phone PCP Unavailable Reason for Visit * Reason Comments Diabetes Encounter Details Care Team Description Date Type Department Phong Stephens MD NO ADDRESS ON FILE DM w/o Complication Type II; Bipolar Disorder, Unspecified; Unspecified Hereditary and Idiopathic Peripheral Neuropathy; Chronic Airway Obstruction, not Elsewhere Classified; Unspecified Migraine without Mention of Intractable Migraine; Hyperlipidemia; Chronic Pain; Pulmonary Embolism 07/01/2009 Office Visit [facility] Primar [address] [address] Social History Date Tobacco Use [...] Signs Reading Time Taken Comments Vital Sign 100/74 07/01/2009 2:54 PM TANNING SOLUTION MAKER Blood Pressure - - Pulse - - Temperature - - Respiratory Rate - - Oxygen Saturation - - Inhaled Oxygen Concentration - - Weight - - Height - - Body Mass Index documented in this encounter Progress Notes * Phong Stephens MD - 07/01/2009 8:35 PM TANNING SOLUTION MAKER Subjective: Ayden Odom is a 39 y.o. [...] prior to encounter Medication Sig Dispense Refill ciprofloxacin (CIPRO) 500 mg Oral tablet Take 1 Tab by mouth 2 times daily f or 10 days. 20 Tab 0 topiramate (TOPAMAX) 100 mg Oral tablet Take 1 Tab by mouth 2 times daily. 60 Tab 0 DEPAKOTE 500 mg Oral TbEC Take 1 Tab by mouth 3 times daily. 90 Tab 2 oxycodone-acetaminophen (PERCOCET) 10-325 mg Oral Tab Take 1 Tab by mouth ev ana lilia 4 hours as needed for 30 days. 90 Tab 0 docusate sodium (COLACE) 100 mg Oral Cap Take 100 mg by mouth 2 times daily as needed for Constipation. zolpidem (AMBIEN) 10 mg Oral Tab Take 1 Tab by mouth nightly as needed for I nsomnia. 30 Tab 2 lorazepam (ATIVAN) 1 mg Oral Tab Take 1 Tab by mouth every 8 hours as needed for Other (See Comment). anxiety 90 Tab 2 albuterol-ipratropium (COMBIVENT) 103-18 mcg/Actuation Inhalation Aero Take 2 Puffs by inhalation every 6 hours. 1 Inhaler 5 Sumatriptan-Naproxen (TREXIMET) 85-500 mg Oral tablet Take 1 Tab by mouth on e time as needed for Migraine for 1 dose. May repeat dose once after 2 hr; MAX 2 tablets in 24 hr 9 Tab 0 potassium chloride (K-DUR) 10 mEq Oral TbTQ Take 1 Tab by mouth 2 times celestino y. 60 Tab 5 ropinirole (REQUIP) 1 mg Oral Tab Take 1 Tab by mouth daily at bedtime. 30 Tab 5 olanzapine (ZYPREXA) 5 mg Oral Tab Take 1 Tab by mouth daily at bedtime. 30 Tab 5 naproxen (NAPROSYN) 500 mg Oral Tab Take 500 mg by mouth 2 times daily with meals. levalbuterol HFA (XOPENEX HFA) 45 mcg/Actuation Inhalation HFAA Take 2 Puffs by inhalation every 6 hours. 1 Inhaler 5 promethazine (PHENERGAN) 25 mg Oral Tab Take 1 Tab by mouth every 6 hours as needed for Nausea. 6 Tab None sumatriptan (IMITREX) 50 mg Oral Tab Take 1 Tab by mouth see administration instructions. 6 Tab 0 furosemide (LASIX) 40 mg Oral Tab Take 1 Tab by mouth 2 times daily. 1 tab B id 60 Tab 5 citalopram (CELEXA) 40 mg Oral Tab Take 1 Tab by mouth daily. 30 Tab 5 ranitidine HCl (ZANTAC) 150 mg Oral Cap Take 1 Cap by mouth 2 times daily. 60 Cap 0 duloxetine (CYMBALTA) 30 mg Oral CpDR Take 1 Cap by mouth daily. 30 Cap 5 duloxetine (CYMBALTA) 60 mg Oral CpDR Take 1 Cap by mouth daily. 30 Cap 5 cyclobenzaprine (FLEXERIL) 10 mg Oral Tab Take 1 Tab by mouth every 8 hours as needed for Spasm for 90 doses. 30 Tab 2 fluticasone-salmeterol (ADVAIR DISKUS) 500-50 mcg/Dose Inhalation DsDv Take 1 Puff by inhalation 2 times daily. 1 Device 5 esomeprazole (NEXIUM) 40 mg Oral CpDR Take [...] systems): Arthritis symptoms: diffuse arthralgias and neuropathy of legs and possibly arms Depression like symptoms: known bipolar but currently stable according to her. s he see Harpal Garza but no psychiatrist. on multiple meds. this is her initial visit with me. she was dismiss from previous Dr related to chad paulson missuse of narcotics. she claims this was not accurate and that her drug screen was neg because she actuallyu was not taking the meds. I told her this w as suspicious for improper use. currently taking percocet 10-325 up to 6 per day mostly for pain in lower ext. Review of Systems: ROS Denies all of the following: Headache: chronic migraines Dizziness Chest pain Shortness of breath Bowel changes Bladder changes Pain in muscle or joints: chronic Exam/Objective: Normal Exam for Routine Visits: \Blood pressure 100/74, last menstrual period Hy sterectomy. General appearance: morbid obese, chronic ill, alert, cooperative,chronic distre ss, social, normally nourished, Lungs: breath sounds equal, clear to auscultation bilaterally, no retractions, n o stridor, normal respiratory effort Heart: regular rate and rhythm, S1, S2 normal, no murmur, click, rub, gallop, or abnormal sounds. Abdomen: soft, non-tender. Bowel sounds normal. No masses, no organomegaly. Ac tive bowel sounds. Extremities: symmetrical edematous non specific tender Assessment and Plan: ASSESSMENT: Encounter Diagnoses Name Primary? DM w/o Complication Type II Bipolar Disorder, Unspecified Unspecified Hereditary and Idiopathic Peripheral Neuropathy Chronic Airway Obstruction, not Elsewhere Classified Unspecified Migraine without Mention of Intractable Migraine Hyperlipidemia Chronic Pain Pulmonary Embolism polypharmacy PLAN: Orders Placed This Encounter Hemoglobin a1c Comprehensive metabolic panel Lipid panel Cbc with differential Valproic acid level, total Protime-inr Oxycodone sr 20 mg 12 hr tab will try scheduled oxycodone #60 and must last 1 month. Will need to evaluate p rn meds Will attempt to get med refills so all are on same day This lady has polypharmacy and needs to have her meds progressively evaluated an glenroy daniels starting with adderall. Recommended she seek psychologist care at [facility] for help regulating bipolar meds. May need pain clinic referral Will have her sign drug contract when available. She understands there is no mar gin for abuse adn will need to find her medical care elsewhere if noncompliant o r suspicionof abusing Appropriate medications prescribed (see detailed AVS). Appropriate patient instructions provided (see detailed AVS). Follow-up as I have indicated. Medications and options explained to include common side effects. Understanding of medications, course, diagnosis, and expectations were expressed by patient/g uardian. ING SOLUTION MAKER documented in this encounter Plan of Treatment Not on filedocumented as of this encounter Results * PROTIME-INR (09/07/2009 5:36 PM CDT) PROTIME 27.0 (H) 9.9 - 11.7 Sec [facility] INR 2.48Comment: [facility] 2.0 - 3.0 [facility] ACCT#[id number], ,,,, CENTER [facility] Specimen Blood specimen (specimen) Performing Organization Address City/State/Zipcode Ph one Number INTERFACE [facility]# [id number] ALYSA BRITTON, Milly S [address] [facility] [address] documented in this encounter Visit Diagnoses Diagnosis Type II or unspecified type diabetes me llitus without mention of complication, not stated as uncontrolled Bipolar disorder, unspecified Unspecified hereditary and idiopathic p eripheral neuropathy Chronic airway obstruction, not elsewhe re classified Unspecified Migraine without Mention of Intractable Migraine Migraine, unspecified, without mention of intractable migraine without mention of status migrainosus Hyperlipidemia Other and unspecified hyperlipidemia Chronic pain Other chronic pain Pulmonary embolism Other pulmonary embolism and infarction documented in this encounter
--- OUTSIDE RECORDS SUMMARY | 2019-10-21 18:33 | XMS REPORT | Encounter Summary ---
Author Author [facility] Organization [facility] Address Unknown Phone Unavailable Care Team Providers Care Structural Biologist Name Role Phone PCP Unavailable Encounter Details Care Team Description Date Type Department Molina Valenzuela, DO [address] [place] [address] 06/30/2009 Abstract [facility] Primar y Care [place] [address] [place] [address] Social History Date Tobacco Use [...]
--- OUTSIDE RECORDS SUMMARY | 2019-10-21 18:34 | XMS REPORT | Encounter Summary ---
Author Author [facility] Organization [facility] Address Unknown Phone Unavailable Care Team Providers Care Tool Dispatcher Name Role Phone PCP Unavailable Reason for Visit * Reason Comments Immunization/Injection Encounter Details Care Team Description Date Type Department Willis Land PA [address] [place], [place] [address] UTI (Urinary Tract Infection) (Primary D x) 06/24/2009 Immunization [facility] [address] [place] [address] Social History Date Tobacco Use [...] as of this encounter Progress Notes * Willis Land PA - 07/13/2009 11:11 PM CUP TRIMMING MACHINE OPERATOR Here for rocephin shot for UTI TRIMMING MACHINE OPERATOR documented in this encounter Plan of Treatment Not on filedocumented as of this encounter Visit Diagnoses Diagnosis UTI (urinary tract infection) - Primary Urinary tract infection, site not speci fied documented in this encounter
--- OUTSIDE RECORDS SUMMARY | 2019-10-21 18:34 | XMS REPORT | Encounter Summary ---
Author Author [facility] Organization [facility] Address Unknown Phone Unavailable Care Team Providers Care Foreclosure Clerk Name Role Phone PCP Unavailable Reason for Visit * Reason Comments Medication Refill Encounter Details Care Team Description Date Type Department Phong Stephens MD NO ADDRESS ON FILE 06/21/2009 Refill [facility] Primsc y [address] [address] Social History Date Tobacco [...]
--- OUTSIDE RECORDS SUMMARY | 2019-10-21 18:34 | XMS REPORT | Encounter Summary ---
Author Author [facility] Organization [facility] Address Unknown Phone Unavailable Care Team Providers Care Presser Hand Name Role Phone PCP Unavailable Reason for Visit * Reason Comments Medication Refill Encounter Details Care Team Description Date Type Department Willis Land PA [address] [place] [address] 06/07/2009 Refill [facility] [address] [place] [phone] Social History Date Tobacco Use Types Packs/Day [...] encounter Miscellaneous Notes * Telephone Encounter - Willis Land PA - 06/07/2009 6:23 PM LUMBER CARRIER OPERATOR Ayden had a suprapubic catheter ER CARRIER OPERATOR documented in this encounter Plan of Treatment Not on filedocumented as of this encounter Visit Diagnoses Not on filedocumented in this encounter
--- OUTSIDE RECORDS SUMMARY | 2019-10-21 18:34 | XMS REPORT | Encounter Summary ---
Author Author [facility] Organization [facility] Address Unknown Phone Unavailable Care Team Providers Care Telecommunication Operator Name Role Phone PCP Unavailable Reason for Visit * Auth/Cert Referred By Contact Referred To Contact Status Reason Specialty Diagnoses / Procedures [facility] Operating Room [address] [place] [address] Closed Diagnoses cysto P rocedures CYSTOSCOPY Encounter Details Care Team Description Date Type Department Homar Christian MD [address] [place] [address] 06/07/2009 Hospital [facility] F ort Encounter Reba Pre Post Op [address] [place] [address] Social History Date Tobacco Use [...] Signs Reading Time Taken Comments Vital Sign 148/88 06/07/2009 11:30 AM TRAINING AND QUALITY MANAGER Blood Pressure 78 06/07/2009 11:30 AM TRAINING AND QUALITY MANAGER Pulse 36.1 C (97 F) 06/07/2009 10:43 AM TRAINING AND QUALITY MANAGER Temperature 20 06/07/2009 11:30 AM TRAINING AND QUALITY MANAGER Respiratory Rate 95% 06/07/2009 11:30 AM TRAINING AND QUALITY MANAGER Oxygen Saturation - - Inhaled Oxygen Concentration 136.1 kg (300 lb) 06/07/2009 8:28 AM TRAINING AND QUALITY MANAGER Weight 160 cm (5' 3") 06/07/2009 8:28 AM TRAINING AND QUALITY MANAGER Height 53.14 06/07/2009 8:28 AM TRAINING AND QUALITY MANAGER Body Mass Index documented in this encounter Discharge Instructions * Patient Instructions* Ari Stanley Physician - 06/08/2009 1:36 PM TRAINING AND QUALITY MANAGER * Additional Instructions* Iram Parker RN - 06/07/2009 FOLLOW-UP: In four weeks at [facility] for Dr. Christian SPECIAL INSTRUCTIONS: No heavy lifting or straining. SYMPTOMS TO REPORT TO DR: Severe pain, if you are having problems urinating or unable to urinate, chills, fever, etc RESUME COUMADIN TOMORROW PM (07/14 PM) You may experience mild burning with urination for the next 24 hrs and the color of your urine may be pink or blood-tinged. NO ALCOHOL, DRIVING, SHOPPING OR RESTAURANTS FOR 24 HOURS. * Attachments The following attachments cannot be sent through Care Everywhere.* SUPRAPUBIC CATHETER CARE: AFTER YOUR VISIT (LUXEMBOURGISH) documented in this encounter Medications at Time of Discharge Start Date End Date Medication Sig Dispensed Refills 10/05/2007 Oxygen-Air Delivery Take 2 L/min 0 Systems Misc Leisa by inhalation daily at bedtime. 10/05/2007 ACCU-CHEK ACTIVE CARE by See Admin 0 Misc Kit Instructions route. Before meals, at bedtime, and as needed 05/31/2009 06/10/2009 vancomycin (VANCOCIN) 250 Take 1 Cap by 30 Cap 0 mg Oral Cap mouth every 8 hours for 10 days. 03/26/2009 07/05/2009 lorazepam (ATIVAN) 1 mg Take 1 Tab by 90 Tab 2 Oral Tab mouth every 8 hours as needed for Other (See Comment). anxiety 03/12/2009 07/05/2009 albuterol-ipratropium Take 2 Puffs 1 Inhaler 5 (COMBIVENT) 103-18 by inhalation mcg/Actuation Inhalation every 6 Aero hours. 02/26/2009 07/05/2009 potassium chloride Take 1 Tab by 60 Tab 5 (K-DUR) 10 mEq Oral TbTQ mouth 2 times daily. 02/26/2009 07/05/2009 ropinirole (REQUIP) 1 mg Take 1 Tab by 30 Tab 5 Oral Tab mouth daily at bedtime. 02/26/2009 07/05/2009 olanzapine (ZYPREXA) 5 mg Take 1 Tab by 30 Tab 5 Oral Tab mouth daily at bedtime. 07/05/2009 naproxen (NAPROSYN) 500 Take 500 mg 0 mg Oral Tab by mouth 2 times daily with meals. 01/13/2009 07/05/2009 levalbuterol HFA (XOPENEX Take 2 Puffs 1 Inhaler 5 HFA) 45 mcg/Actuation by inhalation Inhalation HFAA every 6 hours. 12/28/2008 07/05/2009 furosemide (LASIX) 40 mg Take 1 Tab by 60 Tab 5 Oral Tab mouth 2 times daily. 1 tab Bid 10/12/2008 07/05/2009 duloxetine (CYMBALTA) 30 Take 1 Cap by 30 Cap 5 mg Oral CpDR mouth daily. 10/12/2008 07/05/2009 duloxetine (CYMBALTA) 60 Take 1 Cap by 30 Cap 5 mg Oral CpDR mouth daily. 10/12/2008 07/30/2009 cyclobenzaprine Take 1 Tab by 30 Tab 2 (FLEXERIL) 10 mg Oral Tab mouth every 8 hours as needed for Spasm for 90 doses. 10/12/2008 07/05/2009 fluticasone-salmeterol Take 1 Puff 1 Device 5 (ADVAIR DISKUS) 500-50 by inhalation mcg/Dose Inhalation DsDv 2 times daily. 06/10/2008 07/30/2009 levalbuterol HFA (XOPENEX Take 2 Puffs 1 Inhaler 5 HFA) 45 mcg/Actuation by inhalation Inhalation HFAA every 6 hours. 10/31/2007 12/02/2009 DUONEB IN Take by 0 inhalation every 6 hours. documented as of this encounter H&P Notes * Aok Scanning, [facility] Physician - 06/08/2009 1:36 PM TRAINING AND QUALITY MANAGER documented in this encounter Procedure Notes * Aok Scanning, [facility] Physician - 06/09/2009 10:55 AM TRAINING AND QUALITY MANAGER Associated Order(s): EKG 12-LEAD; EKG 12-LEAD documented in this encounter OR Notes * OR Anesthesia - Aok Scanning, [facility] Physician - 06/08/2009 1:36 PM TRAINING AND QUALITY MANAGER * Operative Report - Homar Christian MD - 06/08/2009 8:10 AM TRAINING AND QUALITY MANAGER [facility]. [address] [place] [id number] OPERATIVE REPORT Patient: JERALD VELAZQUEZ [facility]: [id number] Unit# [id number] Attending Physician: Nasreen Beasley DATE OF OPERATION: 06-07-09 Preoperative diagnosis: Total incontinence, neurogenic bladder, type 2 diabetes , COPD. Postoperative diagnosis: Same. PROCEDURE: Cysto with insertion of SP tube. SURGEON: Homar Christian M.D. PROCEDURE: The patient's urethra admits 23 Liberian. The urethra showed some hype remia and edema. Bladder neck edematous. Trigone hyperemic. Ureteral orifice, ri ght O-A, left O-A. Bladder mucosa severely hyperemic and edematous. Then I proce eded with filling up the bladder and inserted a 5 inch spinal needle into the bl adder, then with a stab wound I proceeded with placing the Bard catheter introdu cer with a 16 Liberian catheter along side the spinal needle into the bladder unde r the direct view of the scope. Then the catheter introducer was removed. The gu susan was removed after we inflated the balloon and then we connected the suprapub ic to a leg bag during the day and a cysto flow bag at night. The plan is to see her again in six weeks or p.r.n. Mean while she will be dennys ty [facility] under the care of Dr. Lozoya to evaluate her urine incontinence. Will give her 500 mg of IV Levaquin for the previous urinary tract infection wh ich was enterococcus. I did obtain a urine culture on her but that was a diluted urine. Dictated by: Homar Christian M.D. DD 06/07/09 TD 06/08/09/[facility] REPORT # [id number] NING AND QUALITY MANAGER * OR Anesthesia - Yemi Dawson CRNA - 06/07/2009 11:34 AM TRAINING AND QUALITY MANAGER Post Operative Anesthesia Note Patient: Jerald Velazquez Medical record: [id number] Post: CYSTOSCOPY, CATHETER SUPRAPUBIC INSERTION Anesthesia Problems: No anesthesia problems/complications 06/07/2009, 11:34 AM Will MAICOL Dawson NING AND QUALITY MANAGER * OR Anesthesia - Yemi Dawson CRNA - 06/07/2009 10:47 AM TRAINING AND QUALITY MANAGER Subjective: 06/07/2009 , the patient and spouse were interviewed in the Pre-Op. Patient is a [age] y.o. female scheduled for Procedure(s): CYSTOSCOPY CATHETER SUPRAPUBIC INSERTION. Medical record [id number]. Patient Active Problem List Diagnoses Date Noted Urinary Retention [788.20B] 04/28/2009 Sleep Apnea [780.57C] [...] Chronic Airway Obstruction, not Elsewhere Classified [496] Past Medical History Diagnosis Date Unspecified Disease [...] 04/19/2009 SIGMOIDOSCOPY performed by MUKESH DOMÍNGUEZ at [facility] OR Pt denies relevant surgical history Hx appendectomy Hx section Hx hysterectomy Hx tubal ligation 1994 Hx cholecystectomy 1999 History Social History Marital Status: Spouse Name: N/A Number of Children: 2 Years of Education: N/A Occupational History Disabled Social History Main Topics Tobacco Use: Yes -- 1.0 packs/day for 27 years STARTED SMOKING AGE 11 Alcohol Use: No Drug Use: No H/O METH USE Sexually Active: Yes -- Female partner(s) Other Topics Concern Not on file Social History Narrative No narrative on file Current outpatient prescriptions prior to encounter Medication Sig Dispense Refill furosemide (LASIX) 40 mg Oral tablet Take 120 mg by mouth daily. vancomycin (VANCOCIN) 250 mg Oral Cap Take 1 Cap by mouth every 8 hours for 10 days. 30 Cap 0 DEPAKOTE 500 mg Oral TbEC Take 1 Tab by mouth 3 times daily. 90 Tab 0 gabapentin (NEURONTIN) 800 mg Oral Tab Take 1 Tab by mouth daily. 30 Tab 0 oxycodone-acetaminophen (PERCOCET) 10-325 mg Oral Tab Take 1 Tab by mouth ev ana lilia 6 hours as needed. 90 Tab 0 zolpidem (AMBIEN) 10 mg Oral Tab Take 1 Tab by mouth nightly as needed for I nsomnia. 30 Tab 2 lorazepam (ATIVAN) 1 mg Oral Tab Take 1 Tab by mouth every 8 hours as needed for Other (See Comment). anxiety 90 Tab 2 albuterol-ipratropium (COMBIVENT) 103-18 mcg/Actuation Inhalation Aero Take 2 Puffs by inhalation every 6 hours. 1 Inhaler 5 potassium chloride (K-DUR) 10 mEq Oral TbTQ Take 1 Tab by mouth 2 times celestino y. 60 Tab 5 atorvastatin (LIPITOR) 80 mg Oral Tab Take 0.5 Tabs by mouth Daily LATE. 15 Tab 5 ropinirole (REQUIP) 1 mg Oral Tab Take 1 Tab by mouth daily at bedtime. 30 Tab 5 olanzapine (ZYPREXA) 5 mg Oral Tab Take 1 Tab by mouth daily at bedtime. 30 Tab 5 furosemide (LASIX) 40 mg Oral Tab Take 1 Tab by mouth 2 times daily. 1 tab B id 60 Tab 5 warfarin (COUMADIN) 5 mg Oral Tab Take 1 Tab by mouth daily. 30 Tab prn citalopram (CELEXA) 40 mg Oral Tab Take [...] 2 L/min by inhalation daily at be dtiar. LOVAZA 1 gram Oral Cap Take 1 Gram by mouth 3 times daily. docusate sodium (COLACE) 100 mg Oral Cap Take 100 mg by mouth 2 times daily as needed for Constipation. Sumatriptan-Naproxen (TREXIMET) 85-500 mg Oral tablet Take 1 Tab by mouth on e time as needed for Migraine for 1 dose. May repeat dose once after 2 hr; MAX 2 tablets in 24 hr 9 Tab 0 topiramate (TOPAMAX) 100 mg Oral Tab Take 1 Tab by mouth 2 times daily. 60 Tab 5 naproxen (NAPROSYN) 500 mg Oral [...] mouth see administration instructions. 6 Tab 0 cyclobenzaprine (FLEXERIL) 10 mg Oral Tab Take 1 Tab by mouth every 8 hours as needed for Spasm for 90 doses. 30 Tab 2 ondansetron (ZOFRAN ODT) 4 mg Oral TbDL Take 1 Tab by mouth every 8 hours as needed for Nausea. 30 Tab 0 levalbuterol HFA (XOPENEX HFA) 45 mcg/Actuation Inhalation HFAA Take 2 Puffs by inhalation every 6 hours. 1 Inhaler 5 fluticasone (FLONASE) 50 mcg/Actuation Both Nostril SpSn Administer 2 Sprays in each nostril daily. 1 Bottle 3 ACCU-CHEK ACTIVE CARE Misc Kit by See Admin Instructions route. Before meals , at bedtime, and as needed DUONEB IN Take by inhalation every 6 hours. Current hospital medications: lactated ringers solution, , IV, Continuous, Guera Christian MD, Last Rate: 125 mL/hr (06/07/09 0850); sodium chloride 0.9 % flush injection 3 mL, 3 mL, IV, See Admin Notes, Homar Christian MD Allergies Allergen Reactions Aloe Vera Unknown Tape (Adhesive Tape) Other (See Comments) Any tape; irritates and tears skin Doxycycline Nausea and Vomiting Anesthesia Concerns Risks discussed, questions answered, consent signed ASA Risk ASA 3 - Patient with moderate systemic disease with functional limitations Plan: Monitoring explained. Airway assessment was perfomed; a Mallampati score of II (soft palate, uvula, fauces visible) was given. The risks and benefits of the p roposed anesthetic have been discussed with patient and spouse. The patient/stephania ignee has agreed to GETA with GETA as a backup. Anesthesia guideline orders ini tiated. NING AND QUALITY MANAGER * Operative Report - Homar Christian MD - 06/07/2009 10:38 AM TRAINING AND QUALITY MANAGER Post Op Notes: Preop Dx :Total Incontinence,Neurogenic Bladder,Type II D.M. Post Op Dx :Same Procedure :Cysto w' Insertion of SP Tube Surgeon :MIGUEL Anesthesia :General EBL :Negligible Condition :Satisfactory NING AND QUALITY MANAGER documented in this encounter Miscellaneous Notes * Scanned Form - Ari Stanley Physician - 06/08/2009 1:36 PM TRAINING AND QUALITY MANAGER documented in this encounter Plan of Treatment Not on filedocumented as of this encounter Procedures Comments Procedure Name Priority Date/Time Associated Diag nosis EKG 12-LEAD Stat 06/09/2009 10:56 AM TRAINING AND QUALITY MANAGER CATHETER SUPRAPUBIC 06/07/2009 INSERTION 4:32 PM TRAINING AND QUALITY MANAGER CYSTOSCOPY 06/07/2009 4:32 PM TRAINING AND QUALITY MANAGER URINE CULTURE Routine 06/07/2009 10:23 AM TRAINING AND QUALITY MANAGER PROTIME-INR Stat 06/07/2009 8:25 AM TRAINING AND QUALITY MANAGER BASIC METABOLIC PANEL Stat 06/07/2009 8:25 AM TRAINING AND QUALITY MANAGER documented in this encounter Results * EKG 12-LEAD (06/09/2009 10:56 AM TRAINING AND QUALITY MANAGER) Narrative Performed At This result has an attachment that is n ot available. Procedure Note 06/09/2009 10:55 AM TRAINING AND QUALITY MANAGER * URINE CULTURE (06/07/2009 10:23 AM TRAINING AND QUALITY MANAGER) URINE CULTURE NO GROWTH AFTER 2 DAYSComment: [facility] ACCT#[id number], ,,,, [facility] LAB Specimen Urine specimen (specimen) - Urine, clean catch Narrative Performed At Collected during cystoscopy by Dr. Christian [employer] E SYSTEM NO COLLECTION TIME ON SPECIMEN. Performing Organization Address City/[facility] Ph one Number INTERFACE SYSTEM [facility] [id number] Milly RIOJAS [id number] INTERFACE SYSTEM Refer to clinic/hospital department * BASIC METABOLIC PANEL (06/07/2009 8:25 AM TRAINING AND QUALITY MANAGER) GLUCOSE 103 70 - 110 mg/dl [facility] BUN 14.0 7 - 20 mg/dl [facility] CREATININE 0.87 0.6 - 1.0 mg/dl [facility] BUN/CREAT RATIO 16.1 10 - 20 [facility] GFR 78 >90 ml/min [facility] SODIUM 138 135 - 145 mmol/L [facility] POTASSIUM 4.0 3.3 - 4.8 mmol/L [facility] CHLORIDE 105 98 - 107 mmol/L [facility] RE[facility] LAB CO2 26.9 22 - 31 mmol/L [facility] ANION GAP 10 4 - 20 [facility] CALCIUM 8.5Comment: [facility] B[facility] 8.5 - 10.1 mg/dl [facility] ACCT#[id number], ,,,, [facility] RE[facility] Specimen Blood specimen (specimen) Performing Organization Address City/[facility]/Zipcode Ph one Number INTERFACE SYSTEM [facility] CLIA# [id number] Milly RIOJAS [id number] RE[facility] LAB [address] [facility] * PROTIME-INR (06/07/2009 8:25 AM TRAINING AND QUALITY MANAGER) PROTIME 10.7 9.5 - 11.5 Sec [facility] INR 1.02 (L)Comment: 2.0 - 3.0 [facility] ACCT#[id number], ,,,, [facility] LAB Specimen Blood specimen (specimen) Performing Organization Address City/State/Zipcode Ph one Number INTERFACE SYSTEM [facility]# [id number] Milly RIOJAS [id number] REBA LAB [address] [place] [address] documented in this encounter Visit Diagnoses Not on filedocumented in this encounter Administered Medications Action Date Dose Rate Site Medication Order MAR Action 06/07/2009 8:50 AM TRAINING AND QUALITY MANAGER 125 mL/hr lactated ringers solution New Bag IV, at 125 mL/hr, CONTINUOUS, Starting Sun06/07/09 at 0815, Until Sun06/07/09 at 1535, Routine 06/07/2009 11:29 AM TRAINING AND QUALITY MANAGER 500 mg 100 mL/hr levofloxacin (LEVAQUIN) 500 mg/100 mL in Given D5W IVPB 500 mg 500 mg, IV, ONE TIME ONLY, 1 dose, Sun06/07/09 at 1130, Stat documented in this encounter
--- OUTSIDE RECORDS SUMMARY | 2019-10-21 18:34 | XMS REPORT | Encounter Summary ---
Author Author [facility] Organization [facility] Address Unknown Phone Unavailable Care Team Providers Care Automotive Software Engineer Name Role Phone PCP Unavailable Reason for Visit * Reason Comments Follow Up Encounter Details Care Team Description Date Type Department Willis Land PA [address] [place], [place] [address] Follow Up 2009 Telephone [facility] [address] [place] [address] Social History Date Tobacco Use [...]
--- OUTSIDE RECORDS SUMMARY | 2019-10-21 18:34 | XMS REPORT | Encounter Summary ---
Author Author [facility] Organization [facility] Address Unknown Phone Unavailable Care Team Providers Care Ux Manager Name Role Phone PCP Unavailable Reason for Visit * Reason Comments Urinary Catheter Problem Catheter reportedly fell ou t this morning. * Auth/Cert Referred By Contact Referred To Contact Status Reason Specialty Diagnoses / Procedures [facility] Emergency [address] [place] [address] Closed Emergency Medicine Encounter Details Care Team Description Date Type Department Julia Land MD [address] [place] [address] 06/03/2009 Emergency [facility] Emergency Department [address] [address] Social History Date Tobacco [...] mouth every 8 hours for 10 days. 04/12/2009 06/07/2009 DEPAKOTE 500 mg Oral TbEC Take 1 Tab by 90 Tab 0 mouth 3 times daily. 04/12/2009 06/07/2009 oxycodone-acetaminophen Take 1 Tab by 90 Tab 0 (PERCOCET) 10-325 mg Oral mouth every 6 Tab hours as needed. 03/26/2009 07/05/2009 lorazepam (ATIVAN) 1 mg Take [...] mouth 2 times daily. 1 tab Bid 12/28/2008 06/07/2009 warfarin (COUMADIN) 5 mg Take 1 Tab by 30 Tab 0 Oral Tab mouth daily. 10/12/2008 07/05/2009 duloxetine (CYMBALTA) 30 Take 1 [...] inhalation mcg/Dose Inhalation DsDv 2 times daily. 08/03/2008 06/07/2009 ondansetron (ZOFRAN ODT) Take 1 Tab by 30 Tab 0 4 mg Oral TbDL mouth every 8 hours as needed for Nausea. 06/10/2008 07/30/2009 levalbuterol HFA (XOPENEX Take 2 Puffs 1 Inhaler 5 HFA) 45 mcg/Actuation by inhalation Inhalation HFAA every 6 hours. 10/31/2007 12/02/2009 DUONEB IN Take by 0 inhalation every 6 hours. documented as of this encounter ED Notes * Willis Land PA - 06/08/2009 2:32 PM BARREL AND RECEIVER ALIGNER HISTORY OF PRESENT ILLNESS Ayden Odom, a 39 y.o. female presents to the ED with a Chief Complaint o f Urinary Catheter Problem HPI Comments: Repeateed expulsion of dickey cath. To have suprapubic placed in 4 days. She has a very resistant bacteria I am treating. I advise no cath at this time. Stay on abx and go ahead with surgery. Pt agrees. Patient is a 39 y.o. female presenting with urinary catheter problem. The histor y is provided by the patient and the spouse. Urinary Catheter Problem REVIEW OF SYSTEMS ROS PAST MEDICAL HISTORY [...] 04/19/2009 SIGMOIDOSCOPY performed by MUKESH DOMÍNGUEZ at [facility] OR Pt denies relevant surgical history [...] Aloe vera, Tape and Doxycycline HOME MEDICATIONS DEPAKOTE 500 mg Oral TbEC Take 1 Tab by mouth 3 times daily. oxycodone-acetaminophen (PERCOCET) 10-325 mg Oral Tab Take 1 Tab by mouth ev ana lilia 4 hours as needed for 30 days. furosemide (LASIX) 40 mg Oral tablet Take 120 mg by mouth daily. vancomycin (VANCOCIN) 250 mg Oral Cap Take 1 Cap by mouth every 8 hours for 10 days. docusate sodium (COLACE) 100 mg Oral Cap Take 100 mg by mouth 2 times daily as needed for Constipation. gabapentin (NEURONTIN) 800 mg Oral Tab Take 1 Tab by mouth daily. zolpidem (AMBIEN) 10 mg Oral Tab Take 1 Tab by mouth nightly as needed for I nsomnia. lorazepam (ATIVAN) 1 mg Oral Tab Take 1 Tab by mouth every 8 hours as needed for Other (See Comment). anxiety albuterol-ipratropium (COMBIVENT) 103-18 mcg/Actuation Inhalation Aero Take 2 Puffs by inhalation every 6 hours. Sumatriptan-Naproxen (TREXIMET) 85-500 mg Oral tablet Take 1 Tab by mouth on e time as needed for Migraine for 1 dose. May repeat dose once after 2 hr; MAX 2 tablets in 24 hr topiramate (TOPAMAX) 100 mg Oral Tab Take 1 Tab by mouth 2 times daily. potassium chloride (K-DUR) 10 mEq Oral TbTQ Take 1 Tab by mouth 2 times celestino y. atorvastatin (LIPITOR) 80 mg Oral Tab Take 0.5 Tabs by mouth Daily LATE. ropinirole (REQUIP) 1 mg Oral Tab Take 1 Tab by mouth daily at bedtime. olanzapine (ZYPREXA) 5 mg Oral Tab Take 1 Tab by mouth daily at bedtime. naproxen (NAPROSYN) 500 mg Oral Tab Take 500 mg by mouth 2 times daily with meals. levalbuterol HFA (XOPENEX HFA) 45 mcg/Actuation Inhalation HFAA Take 2 Puffs by inhalation every 6 hours. promethazine (PHENERGAN) 25 mg Oral Tab Take 1 Tab by mouth every 6 hours as needed for Nausea. sumatriptan (IMITREX) 50 mg Oral Tab Take 1 Tab by mouth see administration instructions. furosemide (LASIX) 40 mg Oral Tab Take 1 Tab by mouth 2 times daily. 1 tab B id citalopram (CELEXA) 40 mg Oral Tab Take 1 Tab by mouth daily. ranitidine HCl (ZANTAC) 150 mg Oral Cap Take 1 Cap by mouth 2 times daily. duloxetine (CYMBALTA) 30 mg Oral CpDR Take 1 Cap by mouth daily. duloxetine (CYMBALTA) 60 mg Oral CpDR Take 1 Cap by mouth daily. cyclobenzaprine (FLEXERIL) 10 mg Oral Tab Take 1 Tab by mouth every 8 hours as needed for Spasm for 90 doses. fluticasone-salmeterol (ADVAIR DISKUS) 500-50 mcg/Dose Inhalation DsDv Take 1 Puff by inhalation 2 times daily. esomeprazole (NEXIUM) 40 mg Oral CpDR Take 1 Cap by mouth daily before a naren l. levalbuterol HFA (XOPENEX HFA) 45 mcg/Actuation Inhalation HFAA Take 2 Puffs by inhalation every 6 hours. fluticasone (FLONASE) 50 mcg/Actuation Both Nostril SpSn Administer 2 Sprays in each nostril daily. Oxygen-Air Delivery Systems Misc Leisa Take 2 L/min by inhalation daily at [facility]. ACCU-CHEK ACTIVE CARE Misc Kit by See Admin Instructions route. Before meals , at bedtime, and as needed LOVAZA 1 gram Oral Cap Take 1 Gram by mouth 3 times daily. DUONEB IN Take by inhalation every 6 hours. PHYSICAL EXAM Initial Vitals BP -- Pulse -- Resp -- Temp -- Temp src -- SpO2 -- Physical Exam Coding DIAGNOSTICS LAB: RADIOLOGY: EKG: PROCEDURES MEDICAL DECISION MAKING AND PLAN OF CARE Last vitals LMP Hysterectomy CLINICAL IMPRESSION No diagnosis found. CASE DISCUSSED PATIENT COUNSELING Diagnostics reviewed and questions answered. Diagnosis, treatment options and p radha of care discussed with understanding verbalized. DISPOSITION, EDUCATION AND MEDICATION RECONCILIATION Medications reconciled. See after visit summary for patient education on discha rged patients. * Lakeisha Abdi RN - 06/03/2009 2:27 PM BARREL AND RECEIVER ALIGNER Pt to go home with script for depends written. No further care provided. Pt ag reeable to leave catheter out until surgery on Sunday. Pt states that she has phone number for [facility] an will call them. EL AND RECEIVER ALIGNER * Lakeisha Abdi RN - 06/03/2009 2:12 PM BARREL AND RECEIVER ALIGNER JR Emery SAUCEDO to room to visit with pt concerning multiple catherizations. Pt is to have suprapubic cath placed on 06/07/09. Pt's catheter reported "fell out" at home to day. EL AND RECEIVER ALIGNER documented in this encounter Plan of Treatment Not on filedocumented as of this encounter Visit Diagnoses Not on filedocumented in this encounter
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
--- OUTSIDE RECORDS SUMMARY | 2019-10-21 18:34 | XMS REPORT | Encounter Summary ---
Author Author [facility] Organization [facility] Address Unknown Phone Unavailable Care Team Providers Care Email Developer Name Role Phone PCP Unavailable Reason for Visit * Reason Comments Neck Pain She has neck pain and dizzy ness. Dizziness She said that symptoms star ari after she was taken off of adderal and topamax. Fatigue She is not able to stay jason ke very well. Pharmacy suggested Adderal and Topamax. Encounter Details Care Team Description Date Type Department Becka Watters, RESIDENTIAL AIDE [address] [place] [address] Drowsiness (Primary Dx); ADHD (Attention Deficit Hyperactivity Disorder) 06/19/2009 Office Visit [facility] [address] [place] [address] Social History Date Tobacco Use [...] Comments Vital Sign - - Blood Pressure 103 06/19/2009 3:05 PM FRONT LOADER RESIDENTIAL DRIVER Pulse 36.9 C (98.4 F) 06/19/2009 3:05 PM FRONT LOADER RESIDENTIAL DRIVER Temperature - - Respiratory Rate 99% 06/19/2009 3:05 PM FRONT LOADER RESIDENTIAL DRIVER Oxygen Saturation - - Inhaled Oxygen Concentration - - Weight - - Height - - Body Mass Index documented in this encounter Progress Notes * Becka Watters, [facility] - 06/25/2009 8:54 PM FRONT LOADER RESIDENTIAL DRIVER S: Patient comes into [facility] with complaints of neck pain, dizziness and drowsiness . She had been diagnosed previously with ADHD and had been taken off Adderall an d now is sleepy, her neck is hunting and she is drowsy all the time. O: Exam shows mild pain in neck to palpation, but she had pain medication. She is very drowsy. Vitals reviewed A: ADHD P: I will restart her Adderall, but I want her to keep her appointment with Dr. Stephens that she has this week for follow-up of other problems. T LOADER RESIDENTIAL DRIVER documented in this encounter Plan of Treatment Not on filedocumented as of this encounter Visit Diagnoses Diagnosis Drowsiness - Primary Other alteration of consciousness ADHD (attention deficit hyperactivity d isorder) Attention deficit disorder with hyperac tivity documented in this encounter
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
--- OUTSIDE RECORDS SUMMARY | 2019-10-21 18:34 | XMS REPORT | Encounter Summary ---
Author Author [facility] Organization [facility] Address Unknown Phone Unavailable Care Team Providers Care Blacktop Spreader Name Role Phone PCP Unavailable Reason for Visit * Reason Comments Blood in Urine was bright red yesterday an d went back to normal now is mixed Breathing Problem started yesterday, has the most trouble when she lies down Encounter Details Care Team Description Date Type Department Willis Land PA [address] [place], [place] [id number] Hematuria; Edema 05/24/[address] [facility] [address] [place] [address] Social History Date Tobacco Use [...] Signs Reading Time Taken Comments Vital Sign 108/68 05/24/2009 4:37 PM COCKTAIL LOUNGE MANAGER Blood Pressure 90 05/24/2009 4:37 PM COCKTAIL LOUNGE MANAGER Pulse 36.1 C (96.9 F) 05/24/2009 4:37 PM COCKTAIL LOUNGE MANAGER Temperature - - Respiratory Rate 97% 05/24/2009 4:37 PM COCKTAIL LOUNGE MANAGER Oxygen Saturation - - Inhaled Oxygen Concentration - - Weight - - Height - - Body Mass Index documented in this encounter Patient Instructions * Patient Instructions* Willis Land PA - 05/24/2009 8:52 PM COCKTAIL LOUNGE MANAGER Increase lasix to 120 mg daily (all at one time) for 2-3 days. Await urine culture. This patient is on massive poly-pharmacy. I have spoken with her and her husban d about setting goals for life from a perspective of "wellness", as opposed to a pre-disposition of "illness". TAIL LOUNGE MANAGER documented in this encounter Progress Notes * Willis Land PA - 05/24/2009 8:45 PM COCKTAIL LOUNGE MANAGER HISTORY OF PRESENT ILLNESS Ayden Odom, a 38 y.o. female. Blood in Urine This is a recurrent problem. The current episode started more than 2 days ago. T he problem occurs daily. The problem has not changed since onset. Associated sym ptoms include shortness of breath. Pertinent negatives include no chest pain, no abdominal pain and no headaches. Breathing Problem This is a recurrent problem. The problem occurs intermittently. The current epis ode started more than 2 days ago. The problem has not changed since onset. Assoc iated symptoms include cough, sputum production, wheezing, orthopnea and leg swe lling. Pertinent negatives include no fever, no headaches, no rhinorrhea, no ear pain, no hemoptysis, no chest pain, no vomiting, no abdominal pain and no francisca ication. She has tried nothing for the symptoms. Associated medical issues inclu de chronic lung disease and PE. REVIEW OF SYSTEMS Review of Systems Constitutional: Negative for fever and chills. HENT: Negative for ear pain, rhinorrhea and ear discharge. Respiratory: Positive for cough, sputum production, shortness of breath and whee zing. Negative for hemoptysis. Cardiovascular: Positive for orthopnea and leg swelling. Negative for chest pain , palpitations and claudication. Gastrointestinal: Negative for vomiting, abdominal pain and diarrhea. Genitourinary: Positive for hematuria. Negative for dysuria and urgency. Has dickey, I suspect it has traumatized the urinary tract and caused small amount of hemmorhage Neurological: Negative for headaches. PHYSICAL EXAM BP 108/68 | Pulse 90 | Temp(Src) 96.9 F (36.1 C) (Tympanic) | SpO2 97% | LMP Hysterectomy Physical Exam Constitutional: She is oriented. She appears not diaphoretic. HENT: Head: Normocephalic and atraumatic. Eyes: Conjunctivae are normal. Pupils are equal, round, and reactive to light. Neck: Normal range of motion. Neck supple. Pulmonary/Chest: No respiratory distress. She has wheezes. She has rales. Neurological: She is alert and oriented. Skin: Skin is warm. She is not diaphoretic. ASSESSMENT and PLAN: Encounter Diagnoses Code Name Primary? Qualifier 599.70F Hematuria 782.3 Edema TAIL LOUNGE MANAGER documented in this encounter Plan of Treatment Not on filedocumented as of this encounter Visit Diagnoses Diagnosis Hematuria Hematuria, unspecified Edema documented in this encounter
--- OUTSIDE RECORDS SUMMARY | 2019-10-21 18:34 | XMS REPORT | Encounter Summary ---
Author Author [facility] Organization [facility] Address Unknown Phone Unavailable Care Team Providers Care Time Buyer Name Role Phone PCP Unavailable Reason for Visit * Reason Comments Yeast Infection on antibiotic for UTI from urgent care Encounter Details Care Team Description Date Type Department Jessica Christian Yeast Infection (on antibiotic for UTI f rom urgent care) 06/28/2009 Telephone [facility] [place] Primar y Care [address] [address] Social History Date Tobacco [...] * Telephone Encounter - Jessica Christian - 06/28/2009 2:11 PM LITHOGRAPHIC ARTIST Per Dr Stephens may have Diflucan 150mg one time only. OGRAPHIC ARTIST documented in this encounter Plan of Treatment Not on filedocumented as of this encounter Visit Diagnoses Not on filedocumented in this encounter
--- OUTSIDE RECORDS SUMMARY | 2019-10-21 18:34 | XMS REPORT | Encounter Summary ---
Author Author [facility] Organization [facility] Address Unknown Phone Unavailable Care Team Providers Care Fishing Worker Name Role Phone PCP Unavailable Reason for Visit * Reason Comments Abdominal Pain suprapubic pain, started ye sterday, feels pulling Encounter Details Care Team Description Date Type Department [facility] [address] [place] [address] Abdominal Pain (Primary Dx); UTI (Urinary Tract Infection) 06/23/2009 Office Visit [facility] [address] [place] [address] Social History Date Tobacco [...] Comments Vital Sign - - Blood Pressure 122 06/23/2009 8:57 PM FAST FOOD CREW LEAD Pulse 36.8 C (98.3 F) 06/23/2009 8:57 PM FAST FOOD CREW LEAD Temperature - - Respiratory Rate 97% 06/23/2009 8:57 PM FAST FOOD CREW LEAD Oxygen Saturation - - Inhaled Oxygen Concentration - - Weight - - Height - - Body Mass Index documented in this encounter Progress Notes * [facility] PA - 07/01/2009 1:20 AM FAST FOOD CREW LEAD HISTORY OF PRESENT ILLNESS Ayden Odom, a 39 y.o. female. Abdominal Pain This is a recurrent problem. The current episode started 2 days ago. The problem occurs constantly. The problem has not changed since onset. The pain is associa ari with a previous surgery. Associated symptoms include diarrhea and hematuria. Pertinent negatives include no fever, no vomiting and no headaches. Past workup includes GI consult, CT scan, ultrasound, surgery and barium enema. Her past me dical history is significant for PUD, gallstones, GERD and irritable bowel syndr ome. REVIEW OF SYSTEMS Review of Systems Constitutional: Negative for fever and chills. HENT: Negative for hearing loss. Respiratory: Negative for cough and hemoptysis. Cardiovascular: Negative for chest pain. Gastrointestinal: Positive for abdominal pain and diarrhea. Negative for vomitin g. Genitourinary: Positive for hematuria and flank pain. Skin: Negative for rash. Neurological: Negative for loss of consciousness and headaches. PHYSICAL EXAM Pulse 122 | Temp 98.3 F (36.8 C) | SpO2 97% | LMP Hysterectomy Physical Exam Constitutional: She appears diaphoretic. HENT: Mouth/Throat: No oropharyngeal exudate. Eyes: Conjunctivae are normal. Right eye exhibits no discharge. Left eye exhibit s no discharge. No scleral icterus. Neck: Neck supple. No JVD present. No tracheal deviation present. Pulmonary/Chest: She is in respiratory distress. She has wheezes. She has rales. Skin: She is diaphoretic. ASSESSMENT and PLAN: Encounter Diagnoses Code Name Primary? Qualifier 789.00AP Abdominal Pain Yes Plan: URINALYSIS WITH REFLEX CULTURE 599.0C UTI (Urinary Tract Infection) Plan: CEFTRIAXONE 1 GRAM SOLUTION FOR INJECTION, CEFTRIAXONE SODIUM 1 GM INJECT ION FOOD CREW LEAD documented in this encounter Plan of Treatment Not on filedocumented as of this encounter Procedures Comments Procedure Name Priority Date/Time Associated Diag nosis URINALYSIS WITH REFLEX Stat 06/23/2009 Abdomin al Pain CULTURE 9:07 PM FAST FOOD CREW LEAD URINE CULTURE Stat 06/23/2009 9:07 PM FAST FOOD CREW LEAD documented in this encounter Results * URINE CULTURE (06/23/2009 9:07 PM FAST FOOD CREW LEAD) ORGANISM KLEBSIELLA OXYTOCA (A) INTERFACE SYSTEM URINE CULTURE COLONY COUNT: >100,000 * INTERFA CE SYSTEM ORGANISM ENTEROCOCCUS SPECIES (A) INTERFACE SYSTEM URINE CULTURE COLONY COUNT: 100,000 * INTERFAC E SYSTEM Specimen Antibiotic Method Susceptibility Organism AMIKACIN DOMENICA MCG/ML <=2: Susceptible Klebsiella oxytoca AMPICILLIN DOMENICA MCG/ML <=2: Resistant Klebsiella oxytoca AMPICILLIN/ SULBACTAM DOMENICA MCG/ML <=2: Susceptible Klebsiella oxytoca CEFAZOLIN DOMENICA MCG/ML <=4: Susceptible Klebsiella oxytoca CEFEPIME DOMENICA MCG/ML <=1: Susceptible Klebsiella oxytoca CEFTAZIDIME DOMENICA MCG/ML <=1: Susceptible Klebsiella oxytoca CEFTRIAXONE DOMENICA MCG/ML <=1: Susceptible Klebsiella oxytoca CIPROFLOXACIN DOMENICA MCG/ML <=0.25: Susceptible Klebsiella oxytoca ERTAPENEM DOMENICA MCG/ML <=0.5: Susceptible Klebsiella oxytoca GENTAMICIN DOMENICA MCG/ML <=1: Susceptible Klebsiella oxytoca IMIPENEM DOMENICA MCG/ML <=1: Susceptible Klebsiella oxytoca LEVOFLOXACIN DOMENICA MCG/ML <=0.12: Susceptible Klebsiella oxytoca NITROFURANTOIN DOMENICA MCG/ML 32: Susceptible Klebsiella oxytoca PIPERACILLIN/ TAZOBACTAM DOMENICA MCG/ML <=4: Susceptible Klebsiella oxytoca TOBRAMYCIN DOMENICA MCG/ML <=1: Susceptible Klebsiella oxytoca TRIMETHOPRIM/ SULFAMETHOXAZOLE DOMENICA MCG/ML <=20: Susceptible Klebsiella oxytoca CIPROFLOXACIN DOMENICA MCG/ML >=8: Resistant Enterococcus species LEVOFLOXACIN DOMENICA MCG/ML >=8: Resistant Enterococcus species NITROFURANTOIN DOMENICA MCG/ML <=16: Susceptible Enterococcus species PENICILLIN DOMENICA MCG/ML 8: Susceptible Enterococcus species TETRACYCLINE DOMENICA MCG/ML >=16: Resistant Enterococcus species VANCOMYCIN DOMENICA MCG/ML 1: Susceptible Enterococcus species Comment: CLEMENTE ROBISON ACCT#[id number], ,,,, Performing Organization Address City/State/[facility] Ph one Number INTERFACE SYSTEM INTERFACE SYSTEM Refer to clinic/hospital department * URINALYSIS WITH REFLEX CULTURE (06/23/2009 9:07 PM FAST FOOD CREW LEAD) GLUCOSE UA Negative Negative mg/dl [facility] BILIRUBIN UA Negative Negative [facility] KETONES UA Trace Negative mg/dl [facility] SPECIFIC 1.[address] [facility] UA [facility] PH UA 7.0 [facility] PROTEIN UA >=300 Negative mg/dl [facility] UROBILINOGEN UA 0.2 0.2 - 1.0 EU/dl [facility] NITRITE UA Positive (H) Negative [facility] BLOOD UA Large (H) Negative [facility] LEUKOCYTE Moderate (H) Negative [facility] ESTERASE UA [place] [facility] WBC UA 10-25 (H) 0 - 5 /HPF [facility] RBC UA 10-25 (H) 0 - 5 /HPF [facility] EPITHELIAL 1+ sq [facility] CELLS, URINE [place] [facility] WBC CLUMPS Neg Negative /LPF [facility] CASTS, URINE Neg 0-4 Hyaline /LPF [facility] CRYSTALS, URINE Neg [facility] BACTERIA UA 3+ (H) NEG [facility] COMMENT, URINE See Culture Report.Comment: EUGENE GARDNER [facility] CENTERJaredCLEMENTE BOSS [facility] ACCT#[id number], ,,,, [facility] Specimen Urine, clean catch Performing Organization Address City/State/Zipcode Ph one Number INTERFACE SYSTEM [facility] SERENITYIA# [id number] Milly RIOJAS [id number] [facility] [address] [facility] documented in this encounter Visit Diagnoses Diagnosis Abdominal pain - Primary Abdominal pain, unspecified site UTI (urinary tract infection) Urinary tract infection, site not speci fied documented in this encounter"
--- OUTSIDE RECORDS SUMMARY | 2019-10-21 18:34 | XMS REPORT | Encounter Summary ---
Author Author [facility] Organization [facility] Address Unknown Phone Unavailable Care Team Providers Care Vocal Teacher Name Role Phone PCP Unavailable Encounter Details Care Team Description Date Type Department [facility] [address] [place], [place] [address] Blood in Urine (Primary Dx) 05/24/2009 Orders Only [facility] Lab Services [facility] [address] [place] [address] Social History Date Tobacco Use [...] Associated Diag nosis URINALYSIS WITH REFLEX Stat 05/24/2009 Blood i n Urine CULTURE 5:11 PM INSTRUCTOR WARPER URINE CULTURE Stat 05/24/2009 5:11 PM INSTRUCTOR WARPER documented in this encounter Results * URINE CULTURE (05/24/2009 5:11 PM INSTRUCTOR WARPER) ORGANISM ENTEROCOCCUS SPECIES (A) INTERFACE SYSTEM URINE CULTURE COLONY COUNT: >100,000 * INTERFA CE SYSTEM Specimen Antibiotic Method Susceptibility Organism CIPROFLOXACIN DOMENICA MCG/ML >=8: Resistant Enterococcus species LEVOFLOXACIN DOMENICA MCG/ML >=8: Resistant Enterococcus species NITROFURANTOIN DOMENICA MCG/ML <=16: Susceptible Enterococcus species PENICILLIN DOMENICA MCG/ML 8: Susceptible Enterococcus species TETRACYCLINE DOMENICA MCG/ML >=16: Resistant Enterococcus species VANCOMYCIN DOMENICA MCG/ML 1: Susceptible Enterococcus species Comment: RICKIPR ACCT#[id number], ,,,, Performing Organization Address [facility] Ph one Number INTERFACE SYSTEM INTERFACE SYSTEM Refer to clinic/hospital department * URINALYSIS WITH REFLEX CULTURE (05/24/2009 5:11 PM INSTRUCTOR WARPER) GLUCOSE UA Negative Negative mg/dl [facility] BILIRUBIN UA Negative Negative [facility] KETONES UA Negative Negative mg/dl [facility] SPECIFIC 1.010 [facility] GRAVITY UA [place] [facility] PH UA 5.5 [facility] PROTEIN UA 30 (H) Negative mg/dl [facility] UROBILINOGEN UA 0.2 0.2 - 1.0 EU/dl [facility] NITRITE UA Negative Negative [facility] BLOOD UA Large (H) Negative [facility] LEUKOCYTE Trace (H) Negative [facility] ESTERASE UA [place] [facility] WBC UA 2-5 0 - 5 /HPF [facility] RBC UA GREATER THAN 50 (H) 0 - 5 /HPF [facility] EPITHELIAL 1+ sq [facility] CELLS, URINE [place] [facility] WBC CLUMPS Neg Negative /LPF [facility] CASTS, URINE Neg 0-4 Hyaline /LPF [facility] CRYSTALS, URINE Amorph UratesComment: 2+ [facility] BACTERIA UA 1+ NEG [facility] COMMENT, URINE See Culture Report.Comment: EUGENE [facility] CLEMENTE ROBISON [facility] ACCT#[id number], ,,,, [facility] Specimen Urinary catheter specimen (specimen) Performing Organization Address [facility] Ph one Number INTERFACE SYSTEM [facility] [place]# [id number] Milly RIOJAS [id number] REBA L[facility] [address] [facility] documented in this encounter Visit Diagnoses Diagnosis Blood in urine - Primary Hematuria, unspecified documented in this encounter
--- OUTSIDE RECORDS SUMMARY | 2019-10-21 18:35 | XMS REPORT | Encounter Summary ---
Author Author [facility] Organization [facility] Address Unknown Phone Unavailable Care Team Providers Care Public Works Supervisor Name Role Phone PCP Unavailable Encounter Details Care Team Description Date Type Department Becka Watters, MEAT SUPERVISOR [address] [place] [address] Protime Monitoring (Primary Dx) 05/16/2009 Orders Only [facility] [address] Social History Date Tobacco Use [...] Priority Date/Time Associated Diag nosis PROTIME-INR Stat 05/16/2009 Protime Monitor ing 7:48 PM TAXATION INSPECTOR documented in this encounter Results * PROTIME-INR (05/16/2009 7:48 PM TAXATION INSPECTOR) PROTIME 23.9 (H) 9.5 - 11.5 Sec [facility] INR 2.41Comment: [facility] 2.0 - 3.0 [facility] ACCT#[id number], ,,,, CENTER [facility] Specimen Blood specimen (specimen) Performing Organization Address City/State/Zipcode Ph one Number INTERFACE SYSTEM [facility]ITAL[facility]# [id number] Milly RIOAJS [id number] documented in this encounter Visit Diagnoses Diagnosis Protime monitoring - Primary Encounter for long-term (current) use o f anticoagulants documented in this encounter
--- OUTSIDE RECORDS SUMMARY | 2019-10-21 18:35 | XMS REPORT | Encounter Summary ---
Author Author [facility] Organization [facility] Address Unknown Phone Unavailable Care Team Providers Care Residential Worker Name Role Phone PCP Unavailable Reason for Visit * Reason Comments Abdominal Pain lower right quad, does have dickey cath just put this one last night. pain started this morning Red Eye right eye has had some drai nage Encounter Details Care Team Description Date Type Department Becka Watters, COMMUNICATIONS TOWER TECHNICIAN [address] [place] [address] Suprapubic Pain; UTI (Lower Urinary Tract Infection); Acute Sinusitis; Bacterial Skin Infection 05/10/2009 Office Visit [facility] [address] [address] Social History Date Tobacco Use [...] Comments Vital Sign - - Blood Pressure 94 05/10/2009 7:00 PM MOTORCYCLE TECHNICIAN Pulse 36.6 C (97.8 F) 05/10/2009 7:00 PM MOTORCYCLE TECHNICIAN Temperature - - Respiratory Rate 100% 05/10/2009 7:00 PM MOTORCYCLE TECHNICIAN Oxygen Saturation - - Inhaled Oxygen Concentration - - Weight - - Height - - Body Mass Index documented in this encounter Progress Notes * Becka Watters - 05/10/2009 10:45 PM MOTORCYCLE TECHNICIAN HISTORY OF PRESENT ILLNESS Ayden Odom, a 38 y.o. female. Abdominal Pain This is a new problem. The current episode started yesterday. The problem occurs constantly. The problem has been gradually worsening. Associated With: has supr apubic catheter and changed that yesterday but now having low abdominal pain and low back pain. The pain is located in the suprapubic region. The quality of the pain is aching and pressure-like. The pain is at a severity of 7/10. Associated symptoms include headaches. Pertinent negatives include no fever, no diarrhea a nd no constipation. sinus pain [facility] The history is provided by the patient. The current episode started 2 days ago. The onset was sudden. The problem occurs continuously. The problem has been grad ually worsening. Associated symptoms include abdominal pain, congestion and head aches. Pertinent negatives include no fever, no constipation and no diarrhea. si nus painUrine output has been normal. Last Void: suprapubic catheter. REVIEW OF SYSTEMS Review of Systems Constitutional: Negative for fever. HENT: Positive for congestion. Respiratory: Negative for shortness of breath. Cardiovascular: Negative for chest pain. Gastrointestinal: Positive for abdominal pain. Negative for diarrhea and constip ation. Musculoskeletal: Positive for back pain. Neurological: Positive for headaches. PHYSICAL EXAM Pulse 94 | Temp(Src) 97.8 F (36.6 C) (Tympanic) | SpO2 100% | LMP Hysterecto my Physical Exam Nursing note and vitals reviewed. Constitutional: She is oriented. She appears well-developed and well-nourished. No distress. HENT: Head: Atraumatic. Right Ear: A middle ear effusion is present. Left Ear: A middle ear effusion is present. Nose: Right sinus exhibits maxillary sinus tenderness. Left sinus exhibits maxil jj sinus tenderness and frontal sinus tenderness. Mouth/Throat: Uvula is midline and oropharynx is clear and moist. Eyes: Right conjunctiva is injected. Left conjunctiva is not injected. Cardiovascular: Normal rate and regular rhythm. Pulmonary/Chest: Effort normal and breath sounds normal. Abdominal: Suprapubic tenderness with suprapubic catheter in place. Lymphadenopathy: She has no cervical adenopathy. Neurological: She is alert and oriented. Skin: Skin is warm and dry. Has an area left side of lower abdomen with redness and erythema. Psychiatric: She has a normal mood and affect. ASSESSMENT and PLAN: Encounter Diagnoses Code Name Primary? Qualifier 789.09D Suprapubic Pain 599.0V UTI (Lower Urinary Tract Infection) Plan: TRIMETHOPRIM-SULFAMETHOXAZOLE 160 MG-800 MG TAB 461.9J Acute Sinusitis Plan: TRIMETHOPRIM-SULFAMETHOXAZOLE 160 MG-800 MG TAB 682.9AX Bacterial Skin Infection Plan: TRIMETHOPRIM-SULFAMETHOXAZOLE 160 MG-800 MG TAB RCYCLE TECHNICIAN documented in this encounter Plan of Treatment Not on filedocumented as of this encounter Visit Diagnoses Diagnosis Suprapubic pain Abdominal pain, other specified site UTI (lower urinary tract infection) Urinary tract infection, site not speci fied Acute sinusitis Acute sinusitis, unspecified Bacterial skin infection Unspecified local infection of skin and subcutaneous tissue documented in this encounter"
--- OUTSIDE RECORDS SUMMARY | 2019-10-21 18:35 | XMS REPORT | Encounter Summary ---
Author Author [facility] Organization [facility] Address Unknown Phone Unavailable Care Team Providers Care Information Technology Officer Name Role Phone PCP Unavailable Encounter Details Care Team Description Date Type Department Willis Land PA [address], [place] [address] Back Pain; Fever; Anticoagulant Long-Term Use 05/13/2009 Orders Only [facility] Lab Services Convenient [facility] [address] [place] [address] Social History Date Tobacco Use [...] Associated Diag nosis URINALYSIS WITH REFLEX Stat 05/13/2009 Back Pa in CULTURE 7:41 PM GLOBAL PROJECT MANAGER CBC WITH DIFFERENTIAL Stat 05/13/2009 Fever 7:41 PM GLOBAL PROJECT MANAGER PROTIME-INR Stat 05/13/2009 Anticoagulant L ne-Term 7:41 PM GLOBAL PROJECT MANAGER Use URINE CULTURE Stat 05/13/2009 7:41 PM GLOBAL PROJECT MANAGER documented in this encounter Results * URINE CULTURE (05/13/2009 7:41 PM GLOBAL PROJECT MANAGER) ORGANISM ESCHERICHIA COLI (A) INTERFACE SYSTEM URINE CULTURE COLONY COUNT: >100,000 * INTERFA CE SYSTEM Specimen Antibiotic Method Susceptibility Organism AMIKACIN DOMENICA MCG/ML <=2: Susceptible Escherichia coli AMPICILLIN DOMENICA MCG/ML >=32: Resistant Escherichia coli AMPICILLIN/ SULBACTAM DOMENICA MCG/ML >=32: Resistant Escherichia coli AZTREONAM DOMEINCA MCG/ML <=1: Susceptible Escherichia coli CEFAZOLIN DOMENICA MCG/ML <=4: Susceptible Escherichia coli CEFEPIME DOMENICA MCG/ML <=1: Susceptible Escherichia coli CEFOTETAN DOMENICA MCG/ML <=4: Susceptible Escherichia coli CEFTAZIDIME DOMENICA MCG/ML <=1: Susceptible Escherichia coli CEFTRIAXONE DOMENICA MCG/ML <=1: Susceptible Escherichia coli CEFUROXIME-AXETIL DOMENICA MCG/ML 4: Susceptible Escherichia coli CEFUROXIME-SODIUM DOMENICA MCG/ML 4: Susceptible Escherichia coli CIPROFLOXACIN DOMENICA MCG/ML >=4: Resistant Escherichia coli GENTAMICIN DOMENICA MCG/ML <=1: Susceptible Escherichia coli IMIPENEM DOMENICA MCG/ML <=1: Susceptible Escherichia coli LEVOFLOXACIN DOMENICA MCG/ML >=8: Resistant Escherichia coli NITROFURANTOIN DOMENICA MCG/ML <=16: Susceptible Escherichia coli PIPERACILLIN DOMENICA MCG/ML 32: Intermediate Escherichia coli PIPERACILLIN/ TAZOBACTAM DOMENICA MCG/ML <=4: Susceptible Escherichia coli TOBRAMYCIN DOMENICA MCG/ML <=1: Susceptible Escherichia coli TRIMETHOPRIM/ SULFAMETHOXAZOLE DOMENICA MCG/ML >=320: Resistant Escherichia coli Comment: [facility] ACCT#[id number], ,,,, Performing Organization Address [facility] Ph one Number INTERFACE SYSTEM INTERFACE SYSTEM Refer to clinic/hospital department * PROTIME-INR (05/13/2009 7:41 PM GLOBAL PROJECT MANAGER) PROTIME 22.0 (H) 9.5 - 11.5 Sec [facility] INR 2.21Comment: [facility] 2.0 - 3.0 [facility] ACCT#[id number], ,,,, CENTER [facility] Specimen Blood specimen (specimen) Performing Organization Address [facility] Ph one Number INTERFACE SYSTEM [facility] [place] CLIA# [id number] Milly RIOJAS [address] [facility] [address] [place] [address] * CBC WITH DIFFERENTIAL (05/13/2009 7:41 PM GLOBAL PROJECT MANAGER) WBC 9.29 3.0 - 10.4 x10E3 [facility] RBC 3.95 3.77 - 4.97 x10E6 [facility] HEMOGLOBIN 12.3 11.9 - 15.0 g/dL [facility] HEMATOCRIT 36.6 34.4 - 43.6 % [facility] MCV 92.7 79 - 100 fL [facility] MCH 31.2 28 - 34 pg [facility] MCHC 33.7 33 - 36 g/dL [facility] RDW 14.6 11.5 - 15.1 % [facility] PLATELETS 198 148 - 408 x10E3 [facility] MPV 7.8 7.4 - 10.6 fL [facility] NEUTROPHILS 64.0 43 - 73 % [facility] LYMPHOCYTES 27.3 19 - 47 % [facility] MONOCYTES 4.5 3 - 9 % [facility] EOSINOPHILS 4.0 0 - 6 % [facility] BASOPHILS 0.3 0 - 1.2 % [facility] NEUTROPHIL 5.95 1.3 - 7.6 x10E3 [facility] LYMPHOCYTE 2.53 0.6 - 4.9 x10E3 [facility] MONOCYTE 0.42 0.1 - 0.9 x10E3 [facility] EOSINOPHIL 0.37 (H) 0.0 - 0.2 x10E3 [facility] BASOPHILS 0.03Comment: [facility] 0 - 0.1 x10E3 [facility] ACCT#[id number], ,,,, CENTER [facility] Specimen Blood specimen (specimen) Performing Organization Address City/State/Zipcode Ph one Number INTERFACE SYSTEM [facility] ALYSA [place]# [id number] Milly RIOJAS [address] REBA [facility] [address] [facility] * URINALYSIS WITH REFLEX CULTURE (05/13/2009 7:41 PM GLOBAL PROJECT MANAGER) GLUCOSE UA Negative Negative mg/dl [facility] BILIRUBIN UA Negative Negative [facility] KETONES UA Negative Negative mg/dl [facility] SPECIFIC <=1.005 [facility] GRAVITY UA [place] [facility] PH UA 5.5 [facility] PROTEIN UA Negative Negative mg/dl [facility] UROBILINOGEN UA 0.2 0.2 - 1.0 EU/dl [facility] NITRITE UA Positive (H) Negative [facility] BLOOD UA Small (H) Negative [facility] LEUKOCYTE Small (H) Negative [facility] ESTERASE UA [place] [facility] WBC UA 10-25 (H) 0 - 5 /HPF [facility] RBC UA 2-5 0 - 5 /HPF [facility] EPITHELIAL occ sq [facility] CELLS, URINE [place] [facility] WBC CLUMPS 2-5 Negative /LPF [facility] CASTS, URINE Neg 0-4 Hyaline /LPF [facility] CRYSTALS, URINE Neg [facility] BACTERIA UA 2+ (H) NEG [facility] COMMENT, URINE See Culture Report.Comment: [facility] ACCT#[id number], ,,,, [facility] Specimen Urine, clean catch Performing Organization Address City/State/Zipcode Ph one Number INTERFACE SYSTEM [facility] ALYSA [place]# [id number] Milly RIOJAS [address] [facility] [address] [facility] documented in this encounter Visit Diagnoses Diagnosis Back pain Backache, unspecified Fever Fever, unspecified Anticoagulant long-term use Encounter for long-term (current) use o f anticoagulants documented in this encounter
--- OUTSIDE RECORDS SUMMARY | 2019-10-21 18:35 | XMS REPORT | Encounter Summary ---
Author Author [facility] Organization [facility] Address Unknown Phone Unavailable Care Team Providers Care Director Of Emergency Nursing Name Role Phone PCP Unavailable Reason for Visit * Reason Comments Urinary Catheter Problem pt. reports she had a dickey catheter that came out approx 30 min ago in voodoo. Encounter Details Care Team Description Date Type Department CanalesSaturnino escobedo MD NO ADDRESS ON FILE Urinary Retention 05/19/2009 Emergency [facility] Emergency Department [address] [address] Social History Date Tobacco Use [...] Delivery Take 2 L/min 0 Systems Misc Leias by inhalation daily at bedtime. 10/05/2007 ACCU-CHEK ACTIVE CARE by See Admin 0 Misc Kit Instructions route. Before meals, at bedtime, and as needed 05/14/2009 05/24/2009 meclizine (ANTIVERT) 50 Take 1 Tab by 30 Tab 0 mg Oral Tab mouth 3 times daily as needed for Dizziness for 10 days. 05/13/2009 05/23/2009 Cefixime 400 mg Oral Take 400 mg 10 Tab 0 TabIndications: Acute UTI by mouth daily for 10 days. 05/13/2009 05/23/2009 oxycodone CR (OXYCONTIN) Take 1 Tab by 20 Tab 0 40 mg Oral mouth every [id number]: Acute 12 hours as UTI needed for Pain, Severe and Pain for 10 days. 05/10/2009 05/24/2009 trimethoprim-sulfamethoxa Take 1 Tab by 28 Tab 0 zole (BACTRIM DS) 160-800 mouth 2 times mg Oral TabIndications: daily for 14 UTI (lower urinary tract days. infection), Acute sinusitis, Bacterial skin infection 04/12/2009 06/07/2009 DEPAKOTE 500 mg Oral TbEC [...] as of this encounter ED Notes * Ynes Chung RN - 05/19/2009 8:05 PM DIRECTOR HUMAN SERVICES Pt. Arrived to Ed with c/o dickey catheter coming out. Pt. States that 35 ml bal loon came out full approx 30 min ago in voodoo, pt. States that she did not feel it. Pt. Did not come in with catheter present. CTOR HUMAN SERVICES documented in this encounter Plan of Treatment Not on filedocumented as of this encounter Visit Diagnoses Diagnosis Urinary retention Retention of urine, unspecified documented in this encounter
--- OUTSIDE RECORDS SUMMARY | 2019-10-21 18:35 | XMS REPORT | Encounter Summary ---
Author Author [facility] Organization [facility] Address Unknown Phone Unavailable Care Team Providers Care Dolly Pusher Name Role Phone PCP Unavailable Reason for Visit * Reason Comments Pain Encounter Details Care Team Description Date Type Department Maurice Durbin MD [address] [place] [address] Pain 05/18/2009 Telephone [facility] [address] [place] [address] Social History Date Tobacco Use [...] encounter Miscellaneous Notes * Telephone Encounter - Shaniqua Lance - 05/18/2009 7:57 PM SELF SEALING FUEL TANK BUILDER calls with concerns of Ayden not getting better and still having pain. Explain to patient that we have done all we can do and that we are not a primary care clinic and she needed to find a primary care physician to continue to help her with this problem. confirms understanding. SEALING FUEL TANK BUILDER documented in this encounter Plan of Treatment Not on filedocumented as of this encounter Visit Diagnoses Not on filedocumented in this encounter
--- OUTSIDE RECORDS SUMMARY | 2019-10-21 18:35 | XMS REPORT | Encounter Summary ---
Author Author [facility] Organization [facility] Address Unknown Phone Unavailable Care Team Providers Care Tube Sizer Operator Name Role Phone PCP Unavailable Reason for Visit * Reason Comments Urinary Catheter Problem urinary catheter came out. Encounter Details Care Team Description Date Type Department Saturnino Canales MD NO ADDRESS ON FILE Urinary Retention 05/09/2009 Emergency [facility] Emergency Department [address] [address] Social History Date Tobacco Use [...] Signs Reading Time Taken Comments Vital Sign 130/77 05/09/2009 2:25 PM SURVEILLANCE OFFICER Blood Pressure 99 05/09/2009 2:25 PM SURVEILLANCE OFFICER Pulse 36.7 C (98 F) 05/09/2009 2:25 PM SURVEILLANCE OFFICER Temperature 18 05/09/2009 2:25 PM SURVEILLANCE OFFICER Respiratory Rate 96% 05/09/2009 2:25 PM SURVEILLANCE OFFICER Oxygen Saturation - - Inhaled Oxygen Concentration [...] Before meals, at bedtime, and as needed 04/12/2009 06/07/2009 DEPAKOTE 500 mg Oral TbEC [...] as needed for Other (See Comment). anxiety 03/25/2009 05/13/2009 oxycodone CR (OXYCONTIN) Take 1 Tab by 60 Tab 0 60 mg Oral Tb12 mouth every 12 hours. 03/12/2009 07/05/2009 albuterol-ipratropium Take 2 Puffs 1 [...] ED Notes * Ari Stanley Physician - 05/10/2009 10:51 AM SURVEILLANCE OFFICER * Yenny Nowak RN - 05/09/2009 2:48 PM SURVEILLANCE OFFICER 18 Wallisian catheter inserted with a 30 cc balloon. 35 cc of ns put in balloon. EILLANCE OFFICER * Saturnino Canales MD - 05/09/2009 2:32 PM SURVEILLANCE OFFICER HISTORY OF PRESENT ILLNESS Ayden Odom, a 38 y.o. female presents to the ED with a Chief Complaint o f Urinary Catheter Problem Patient is a 38 y.o. female presenting with urinary catheter problem. Urinary Catheter Problem Accidentally when straining with BM pulled out her dickey again. REVIEW OF SYSTEMS ROS PAST MEDICAL HISTORY [...] performed by MUKESH DOMÍNGUEZ at [facility] OR Family History Problem Relation Heart Disease [...] Aloe vera, Tape and Doxycycline HOME MEDICATIONS docusate sodium (COLACE) 100 mg Oral Cap Take 100 mg by mouth 2 times daily as needed for Constipation. amphetamine-dextroamphetamine SR 24 hour (ADDERALL XR) 30 mg Oral Cp24 Take 1 Cap by mouth daily energy assistant. adhd DEPAKOTE 500 mg Oral TbEC Take 1 [...] as needed for Other (See Comment). anxiety oxycodone CR (OXYCONTIN) 60 mg Oral Tb12 Take 1 Tab by mouth every 12 hours. amitriptyline (ELAVIL) 50 mg Oral Tab Take [...] 2 times daily. 1 tab B id warfarin (COUMADIN) 5 mg Oral Tab Take 1 Tab by mouth daily. citalopram (CELEXA) 40 mg Oral Tab Take 1 Tab by mouth daily. BACLOFEN 10 mg Oral Tab Take 10 mg by mouth 3 times daily as needed for Pain . ranitidine HCl (ZANTAC) 150 mg Oral Cap Take 1 Cap by mouth 2 times daily. duloxetine (CYMBALTA) 30 mg Oral CpDR Take 1 Cap by mouth daily. duloxetine (CYMBALTA) 60 mg Oral CpDR Take 1 Cap by mouth daily. fluticasone-salmeterol (ADVAIR DISKUS) 500-50 mcg/Dose Inhalation DsDv Take 1 Puff by inhalation 2 times daily. esomeprazole (NEXIUM) 40 mg Oral CpDR Take 1 Cap by mouth daily before a naren l. sucralfate (CARAFATE) 1 gram Oral Tab Take 1 Tab by mouth 4 times daily befo re meals and at bedtime. Four times daily for 72 hours then as needed for nausea , reflux levalbuterol HFA (XOPENEX HFA) 45 mcg/Actuation Inhalation HFAA Take 2 Puffs by inhalation every 6 hours. fluticasone (FLONASE) 50 mcg/Actuation Both Nostril SpSn Administer 2 Sprays in each nostril daily. Oxygen-Air Delivery Systems Misc Leisa Take 2 L/min by inhalation daily at be [facility]. ACCU-CHEK ACTIVE CARE Misc Kit by See Admin Instructions route. Before meals , at bedtime, and as needed LOVAZA 1 gram Oral Cap Take 1 Gram by mouth 3 times daily. DUONEB IN Take by inhalation every 6 hours. amoxicillin (AMOXIL) 500 mg Oral Tab Take 1 Tab by mouth 3 times daily. cyclobenzaprine (FLEXERIL) 10 mg Oral Tab Take 1 Tab by mouth every 8 hours as needed for Spasm for 90 doses. ondansetron (ZOFRAN ODT) 4 mg Oral TbDL Take 1 Tab by mouth every 8 hours as needed for Nausea. PHYSICAL EXAM Initial Vitals BP 05/09/09 1425 130/77 mmHg Pulse 05/09/09 1425 99 Resp 05/09/09 1425 18 Temp 05/09/09 1425 98 F (36.7 C) Temp src 05/09/09 1425 Oral SpO2 05/09/09 1425 96 % Physical Exam Coding DIAGNOSTICS LAB: RADIOLOGY: EKG: PROCEDURES MEDICAL DECISION MAKING AND PLAN OF CARE Last vitals BP 130/77 | Pulse 99 | Temp(Src) 98 F (36.7 C) (Oral) | Resp 18 | SpO2 96% | LMP Hysterectomy CLINICAL IMPRESSION No diagnosis found. CASE DISCUSSED PATIENT COUNSELING Diagnostics reviewed and questions answered. Diagnosis, treatment options and p radha of care discussed with understanding verbalized. DISPOSITION, EDUCATION AND MEDICATION RECONCILIATION Medications reconciled. See after visit summary for patient education on discha rged patients. Replace dickey. computer terminal operator plan is placement of supra pubic catheter EILLANCE OFFICER documented in this encounter Plan of Treatment Not on filedocumented as of this encounter Visit Diagnoses Diagnosis Urinary retention Retention of urine, unspecified documented in this encounter"
--- OUTSIDE RECORDS SUMMARY | 2019-10-21 18:35 | XMS REPORT | Encounter Summary ---
Author Author [facility] Organization [facility] Address Unknown Phone Unavailable Care Team Providers Care Network Support Administrator Name Role Phone PCP Unavailable Encounter Details Care Team Description Date Type Department Becka Watters, BIOFUELS MANAGER [address] [place] [address] Abdominal Pain, Generalized (Primary Dx) 05/10/2009 Orders Only [facility] Lab Services Convenient [address] [address] Social History Date Tobacco Use [...] Associated Diag nosis URINALYSIS WITH REFLEX Stat 05/10/2009 Abdomin al Pain, CULTURE 7:27 PM GARMENT FORM ASSEMBLER Generalized URINE CULTURE Stat 05/10/2009 7:27 PM GARMENT FORM ASSEMBLER documented in this encounter Results * URINE CULTURE (05/10/2009 7:27 PM GARMENT FORM ASSEMBLER) ORGANISM ESCHERICHIA COLI (A) INTERFACE SYSTEM URINE CULTURE COLONY COUNT: >100,000 * INTERFA CE SYSTEM Specimen Antibiotic Method Susceptibility Organism AMIKACIN DOMENICA MCG/ML <=2: Susceptible Escherichia coli AMPICILLIN DOMENICA MCG/ML >=32: Resistant Escherichia coli AMPICILLIN/ SULBACTAM DOMENICA MCG/ML >=32: Resistant Escherichia coli AZTREONAM DOMENICA MCG/ML <=1: Susceptible Escherichia coli CEFAZOLIN DOMENICA [...] <=16: Susceptible Escherichia coli PIPERACILLIN DOMENICA MCG/ML 64: Intermediate Escherichia coli PIPERACILLIN/ TAZOBACTAM DOMENICA MCG/ML <=4: Susceptible Escherichia coli TOBRAMYCIN DOMENICA MCG/ML <=1: Susceptible Escherichia coli TRIMETHOPRIM/ SULFAMETHOXAZOLE DOMENICA MCG/ML >=320: Resistant Escherichia coli Comment: CLEMENTE ROBISON ACCT#[id number], ,,,, Performing Organization Address City/State/Zipcode Ph one Number INTERFACE SYSTEM INTERFACE SYSTEM Refer to clinic/hospital department * URINALYSIS WITH REFLEX CULTURE (05/10/2009 7:27 PM GARMENT FORM ASSEMBLER) GLUCOSE UA Negative Negative mg/dl [facility] BILIRUBIN UA Negative Negative [facility] KETONES UA Negative Negative mg/dl [facility] SPECIFIC 1.015 [facility] GRAVITY UA [place] [facility] PH UA 7.5 [facility] PROTEIN UA 30 (H) Negative mg/dl [facility] UROBILINOGEN UA 0.2 0.2 - 1.0 EU/dl [facility] NITRITE UA Positive (H) Negative [facility] BLOOD UA Moderate (H) Negative [facility] LEUKOCYTE Moderate (H) Negative [facility] ESTERASE UA [facility] WBC UA 25-50 (H) 0 - 5 /HPF [facility] RBC UA 5-10 (H) 0 - 5 /HPF [facility] EPITHELIAL 1+ sq [facility] CELLS, URINE [place] [facility] WBC CLUMPS Neg Negative /LPF [facility] CASTS, URINE Neg 0-4 Hyaline /LPF [facility] CRYSTALS, URINE Neg [facility] BACTERIA UA 1+ NEG [facility] COMMENT, URINE See Culture Report.Comment: EUGENE Joaquim [facility]ITAL[facility]aredCLEMENTE [facility] ACCT#[id number], ,,,, [facility] Specimen Urine, clean catch Performing Organization Address City/State/Zipcode Ph one Number INTERFACE SYSTEM [facility] CLIA# [id number] Milly RIOJAS S [address] [facility] [address] [facility] documented in this encounter Visit Diagnoses Diagnosis Abdominal pain, generalized - Primary documented in this encounter
--- OUTSIDE RECORDS SUMMARY | 2019-10-21 18:35 | XMS REPORT | Encounter Summary ---
Author Author [facility] Organization [facility] Address Unknown Phone Unavailable Care Team Providers Care Fur Dry Cleaner Hand Name Role Phone PCP Unavailable Reason for Visit * Reason Comments Urinary Catheter Problem pt pulled dickey catheter ou t. * Auth/Cert Referred By Contact Referred To Contact Status Reason Specialty Diagnoses / Procedures [facility] Emergency [address] [place] [address] Closed Emergency Medicine Encounter Details Care Team Description Date Type Department Lavell Bautista MD [address] [place] [id number] 05/22/2009 Emergency [facility] Emergency Department [address] [address] Social History Date Tobacco Use [...] Tab 0 40 mg Oral mouth every [id number]: Acute 12 hours as UTI needed for [...]
--- OUTSIDE RECORDS SUMMARY | 2019-10-21 18:35 | XMS REPORT | Encounter Summary ---
Author Author [facility] Organization [facility] Address Unknown Phone Unavailable Care Team Providers Care Earthmoving Labourer Name Role Phone PCP Unavailable Reason for Visit * Reason Comments Abdominal Pain Dizziness Chills Back Pain Encounter Details Care Team Description Date Type Department Willis Land PA [address] [place], [place] [address] Bacterial UTI (Primary Dx); Dizzy 05/14/2009 Office Visit [facility] [address] [place] [address] Social History Date Tobacco Use [...] Vital Sign - - Blood Pressure 99 05/14/2009 8:37 PM PROJECT PROGRAM MANAGER Pulse 36.7 C (98.1 F) 05/14/2009 8:37 PM PROJECT PROGRAM MANAGER Temperature - - Respiratory Rate 100% 05/14/2009 8:37 PM PROJECT PROGRAM MANAGER Oxygen Saturation - - Inhaled Oxygen Concentration - - Weight - - Height - - Body Mass Index documented in this encounter Progress Notes * Willis Land PA - 05/20/2009 6:46 PM PROJECT PROGRAM MANAGER HISTORY OF PRESENT ILLNESS Ayden Odom, a 38 y.o. female. Abdominal Pain This is a recurrent problem. The current episode started more than 2 days ago. T he problem occurs hourly. Pertinent negatives include no headaches. Dizziness Associated symptoms include abdominal pain, back pain and dizziness. Pertinent n egatives include no chest pain and no headaches. Chills This is a new problem. The current episode started 2 days ago. Pertinent negativ es include no chest pain, no headaches and no cough. Back Pain This is a new problem. The current episode started 2 days ago. Associated sympto ms include abdominal pain. Pertinent negatives include no chest pain and no head aches. REVIEW OF SYSTEMS Review of Systems Constitutional: Positive for chills. HENT: Negative for hearing loss. Eyes: Negative for double vision. Respiratory: Negative for cough. Cardiovascular: Negative for chest pain. Gastrointestinal: Positive for abdominal pain. Musculoskeletal: Positive for back pain. Neurological: Positive for dizziness. Negative for headaches. PHYSICAL EXAM Pulse 99 | Temp(Src) 98.1 F (36.7 C) (Tympanic) | SpO2 100% | LMP Hysterecto my Physical Exam Constitutional: She appears well-developed. HENT: Head: Normocephalic. Eyes: Conjunctivae are normal. Pupils are equal, round, and reactive to light. R ight eye exhibits no discharge. Left eye exhibits no discharge. Neck: Normal range of motion. Cardiovascular: Normal rate and normal heart sounds. Pulmonary/Chest: She has no wheezes. Abdominal: Soft. Bowel sounds are normal. Musculoskeletal: Normal range of motion. Lymphadenopathy: She has no cervical adenopathy. ASSESSMENT and PLAN: Encounter Diagnoses Code Name Primary? Qualifier 599.0AV Bacterial UTI Yes Plan: CEFTRIAXONE 1 GRAM SOLUTION FOR INJECTION, CEFTRIAXONE SODIUM 1 GM INJECT ION 780.4BQ Dizzy ECT PROGRAM MANAGER documented in this encounter Plan of Treatment Not on filedocumented as of this encounter Visit Diagnoses Diagnosis Bacterial UTI - Primary Urinary tract infection, site not speci fied Dizzy Dizziness and giddiness documented in this encounter"
--- OUTSIDE RECORDS SUMMARY | 2019-10-21 18:35 | XMS REPORT | Encounter Summary ---
Author Author [facility] Organization [facility] Address Unknown Phone Unavailable Care Team Providers Care Building Inspector Name Role Phone PCP Unavailable Reason for Visit * Reason Comments Immunization/Injection Rocephin 1 gm per Willis trujillo instructions Encounter Details Care Team Description Date Type Department Becka Watters, HIGH SCHOOL ASSISTANT PRINCIPAL [address] [place] [address] UTI (Urinary Tract Infection) (Primary D x) 05/16/2009 Immunization [facility] [address] [address] Social History Date Tobacco [...]
--- OUTSIDE RECORDS SUMMARY | 2019-10-21 18:35 | XMS REPORT | Encounter Summary ---
Author Author [facility] Organization [facility] Address Unknown Phone Unavailable Care Team Providers Care Testing Lead Name Role Phone PCP Unavailable Reason for Visit * Reason Comments Immunization/Injection Rocephin Injection per Sonya Land orders in Urgent Care Encounter Details Care Team Description Date Type Department Becka Watters, TECHNOLOGY APPLICATIONS ENGINEER [address] [place] [address] UTI (Urinary Tract Infection) (Primary D x) 05/15/2009 Immunization [facility] [address] [address] Social History Date Tobacco [...]
--- OUTSIDE RECORDS SUMMARY | 2019-10-21 18:35 | XMS REPORT | Encounter Summary ---
Author Author [facility] Organization [facility] Address Unknown Phone Unavailable Care Team Providers Care Slot Editor Name Role Phone PCP Unavailable Reason for Visit * Reason Comments Urinary Catheter Problem Encounter Details Care Team Description Date Type Department CanalesSaturnino escobedo MD NO ADDRESS ON FILE 05/17/[address] [facility] Emergency Department [address] [address] Social History Date Tobacco [...] Tab 0 40 mg Oral mouth every [id number]: Acute 12 hours as UTI needed for [...] this encounter ED Notes * Halie Leung, JUAN DAVID - 05/17/2009 12:58 AM SERVICE DESK AGENT Pt accidentally pulled dickey catheter out of place. 20 swedish dickey cath with 3 0 ml balloon placed. Pt tolerated well, sterile technique used during insertion . ICE DESK AGENT documented in this encounter Plan of Treatment Not on filedocumented as of this encounter Visit Diagnoses Not on filedocumented in this encounter
--- OUTSIDE RECORDS SUMMARY | 2019-10-21 18:35 | XMS REPORT | Encounter Summary ---
Author Author [facility] Organization [facility] Address Unknown Phone Unavailable Care Team Providers Care Engraver Copperplate Name Role Phone PCP Unavailable Reason for Visit * Reason Comments Erroneous encounter-disregard Encounter Details Care Team Description Date Type Department Homar Christian MD [address] [place] [address] Urinary Retention (Primary Dx) 05/17/2009 Office Visit [facility] [place] [address] Social History Date Tobacco Use Types [...] as of this encounter Progress Notes * Becka Miller - 10/18/2009 1:59 PM CDT A user error has taken place: encounter opened in error, closed for administrati ve reasons. * Homar Christian MD - 05/24/2009 12:49 PM [facility], [place] [address] OUTPATIENT CLINIC Patient Name: JERALD VELAZQUEZ : 74 Date: 05/17/09 CC: Total urine incontinence for several years duration. HPI: Jerald is here for follow up on neurogenic bladder and apparently she now is on indwelling urethral catheter and apparently it does fall out of her so now they are to the point that they have to inflate the balloon to 30 or 35 cc. To day I was able to convince that I would like her to be evaluated by Dr. Morgan crawford at [facility] for further study, urodynamic and the like, and to make a decision abo ut what is the best approach for the incontinence. ROS: Is that of fibromyalgia, neuropathy, degenerative arthritis, COPD, type 2 diabetes, myalgia, myositis, seizure disorder, migraine, GERD, bipolar disorder. PFSH: She is on a long list of medications that includes Zolpidem, Lorazepam, T opamax, Depakote, Xopenex, Imitrex, Baclofen, duloxetine, sucralfate. Apparently she has an infection and is currently on Suprax. She is going to fill the presc ription, and she has been receiving shots in the urgent care. A: UA, the nitrite is negative, leukocytes is trace, blood large. PLAN: I gave her a script for catheter and cysto flow bag and also I will do an NMP22 on her and there is no need for culture because she did have a culture and I will refer her to Dr. Lozoya for further evaluation and management. Apparently Dr. Durbin has fired her. Dictated by: Homar Christian M.D. DD 05/17/09 TD 05/18/09/[facility] REPORT # [id number] SCRIPT FRONT END DEVELOPER documented in this encounter Plan of Treatment Not on filedocumented as of this encounter Visit Diagnoses Diagnosis Urinary retention - Primary Retention of urine, unspecified documented in this encounter
--- OUTSIDE RECORDS SUMMARY | 2019-10-21 18:35 | XMS REPORT | Encounter Summary ---
Author Author [facility] Organization [facility] Address Unknown Phone Unavailable Care Team Providers Care Scenario Writer Name Role Phone PCP Unavailable Reason for Visit * Reason Comments Back Pain was seen on sunday with uti , started three days ago and now is unbearable with any movement or change Dizziness x's two hours, seeing some spots when she closes eye Nausea x's two hours Encounter Details Care Team Description Date Type Department Willis Land PA [address] [place] [address] Acute UTI (Primary Dx) 05/13/2009 Office Visit [facility] [address] [place] [address] Social History Date Tobacco Use [...] Signs Reading Time Taken Comments Vital Sign 108/64 05/13/2009 7:15 PM CASINO RUNNER Blood Pressure 102 05/13/2009 7:15 PM CASINO RUNNER Pulse 36.9 C (98.5 F) 05/13/2009 7:15 PM CASINO RUNNER Temperature - - Respiratory Rate 96% 05/13/2009 7:15 PM CASINO RUNNER Oxygen Saturation - - Inhaled Oxygen Concentration - - Weight - - Height - - Body Mass Index documented in this encounter Progress Notes * Willis Land PA - 05/20/2009 1:59 PM CASINO RUNNER HISTORY OF PRESENT ILLNESS Joesite Marilynn Odom, a 38 y.o. female. Back Pain The current episode started more than 2 days ago. The problem occurs constantly. The problem has not changed since onset. Associated symptoms include abdominal pain. Pertinent negatives include no fever and no headaches. Dizziness Associated symptoms include abdominal pain, nausea, back pain and dizziness. Per tinent negatives include no fever and no headaches. Nausea This is a new problem. The current episode started 2 days ago. Associated sympto ms include abdominal pain. Pertinent negatives include no chills, no fever and n o headaches. REVIEW OF SYSTEMS Review of Systems Constitutional: Negative for fever and chills. HENT: Negative for neck pain. Gastrointestinal: Positive for nausea and abdominal pain. Genitourinary: Positive for hematuria. Musculoskeletal: Positive for back pain. Neurological: Positive for dizziness. Negative for headaches. PHYSICAL EXAM BP 108/64 | Pulse 102 | Temp(Src) 98.5 F (36.9 C) (Tympanic) | SpO2 96% | LM P Hysterectomy Physical Exam Constitutional: She is oriented. She appears well-developed. She appears not rosalind phoretic. HENT: Head: Normocephalic. Eyes: Conjunctivae are normal. Neck: Neck supple. Pulmonary/Chest: Effort normal. No respiratory distress. Abdominal: Soft. She exhibits no distension. No tenderness. Neurological: She is alert and oriented. Skin: She is not diaphoretic. ASSESSMENT and PLAN: Encounter Diagnoses Code Name Primary? Qualifier 599.0AL Acute UTI Yes Plan: CEFTRIAXONE 1 GRAM SOLUTION FOR INJECTION, CEFTRIAXONE SODIUM 1 GM INJECT ION On Bactrim, but C&S shows this is resistant e.coli. 1 gm rocephin given, Suprax 400mg daily x ten days NO RUNNER documented in this encounter Plan of Treatment Not on filedocumented as of this encounter Visit Diagnoses Diagnosis Acute UTI - Primary Urinary tract infection, site not speci fied documented in this encounter"
--- OUTSIDE RECORDS SUMMARY | 2019-10-21 18:36 | XMS REPORT | Encounter Summary ---
Author Author [facility] Organization [facility] Address Unknown Phone Unavailable Care Team Providers Care Aquarist Name Role Phone PCP Unavailable Reason for Visit * Reason Comments Urinary Catheter Problem pt. reports she pulled old catheter out by accident, pt. reports she needs new catheter placed. * Auth/Cert Referred By Contact Referred To Contact Status Reason Specialty Diagnoses / Procedures [facility] Emergency [address] [place] [address] Closed Emergency Medicine Encounter Details Care Team Description Date Type Department Reggie Ramirez MD NO ADDRESS ON FILE Urinary Retention 04/28/2009 Emergency [facility] Emergency Department [address] [address] Social History Date Tobacco [...] ED Notes * Jim Ramirez MD - 05/11/2009 7:53 AM TURNTABLE OPERATOR Catheter dickey replaced, no visit. TABLE OPERATOR * Ynes Chung RN - 04/28/2009 12:32 AM TURNTABLE OPERATOR Pt. Comes to ER for outpatient placement of dickey catheter. Pt. Reports that sh carlie had a dickey catheter that she accedently pulled out. Placed dickey catheter 18 F 30cc catheter. Tolerated well by pt. TABLE OPERATOR documented in this encounter Plan of Treatment Not on filedocumented as of this encounter Visit Diagnoses Diagnosis Urinary retention Retention of urine, unspecified documented in this encounter
--- OUTSIDE RECORDS SUMMARY | 2019-10-21 18:36 | XMS REPORT | Encounter Summary ---
Author Author [facility] Organization [facility] Address Unknown Phone Unavailable Care Team Providers Care Inductor Tester Name Role Phone PCP Unavailable Reason for Visit * Reason Comments Back Pain started today. lower back a cross and radiates into hips. Headache started 3 days ago. pt rep orts taking oxycodone and naproxen but still has headache. light sensitivity and nausea Nausea started yesterday, constant . reports taking 2 phenergans yesterday. Encounter Details Care Team Description Date Type Department Wyatt German MD [address] [phone] 05/07/2009 Emergency [facility] Emergency Department [address] [phone] Social History Date Tobacco Use Types Packs/Day [...] Signs Reading Time Taken Comments Vital Sign 122/68 05/07/2009 6:19 PM GEOSPATIAL TECHNICIAN Blood Pressure 82 05/07/2009 6:19 PM GEOSPATIAL TECHNICIAN Pulse 37.1 C (98.7 F) 05/07/2009 6:19 PM GEOSPATIAL TECHNICIAN Temperature 18 05/07/2009 6:19 PM GEOSPATIAL TECHNICIAN Respiratory Rate 98% 05/07/2009 6:19 PM GEOSPATIAL TECHNICIAN Oxygen Saturation - - Inhaled Oxygen Concentration 146 kg (321 lb 12.8 oz) 05/07/2009 6:19 PM GEOSPATIAL TECHNICIAN Weight 162.6 cm (5' 4") 05/07/2009 6:19 PM GEOSPATIAL TECHNICIAN Height 55.24 05/07/2009 6:19 PM GEOSPATIAL TECHNICIAN Body Mass Index documented in this encounter Discharge Instructions * Instructions* Yenny Nowak, RN - 05/07/2009 In the next few days you might receive a survey in the mail from the [facility]. Please take a moment and answer the questions on a 5 point scale with 5 being the best. We know your time is valuable and your feedback is great ly appreciated as we continually strive to provide exceptional service to all th ose we serve. Thank you from the staff of the [facility] Emergency Department. * Attachments The following attachments cannot be sent through Care Everywhere.* MIGRAINE HEADACHE: AFTER YOUR VISIT (SYRIAC) documented in this encounter Medications at Time [...] Notes * Ari Stanley Physician - 05/10/2009 12:41 PM GEOSPATIAL TECHNICIAN * Yenny Nowak RN - 05/07/2009 6:28 PM GEOSPATIAL TECHNICIAN Pt presents to ED in a wheelchair with lower back pain, no injuries reported, an d a migraine that started 3 days ago. Pt states she has taken oxycodone, naprox en, and phenergan but none of them have helped her at all. Pt states she is lig ht sensitive and nauseated. PATIAL TECHNICIAN * Yenny Nowak RN - 05/07/2009 6:[address] German in room to see pt at this time. PATIAL TECHNICIAN documented in this encounter Plan of Treatment Not on filedocumented as of this encounter Visit Diagnoses Not on filedocumented in this encounter Administered Medications Action Date Dose Rate Site Medication Order MAR Action 05/07/2009 6:43 PM GEOSPATIAL TECHNICIAN 60 mg Arm, Lef t Upper ketorolac (TORADOL) injection 60 mg Given 60 mg, IM, ONE TIME ONLY, 1 dose, Sun05/07/09 at 1845, Routine 05/07/2009 6:47 PM GEOSPATIAL TECHNICIAN 50 mg Arm, Rig ht Upper promethazine (PHENERGAN) injection 50 mg Given 50 mg, IM, ONE TIME ONLY, 1 dose, Sun05/07/09 at 1900, Routine documented in this encounter
--- OUTSIDE RECORDS SUMMARY | 2019-10-21 18:36 | XMS REPORT | Encounter Summary ---
Author Author [facility] Organization [facility] Address Unknown Phone Unavailable Care Team Providers Care Acute Care Nursing Assistant Name Role Phone PCP Unavailable Reason for Visit * Reason Comments Unable To Contact Encounter Details Care Team Description Date Type Department Rehana Valdivia Unable To Contact 04/22/2009 Telephone [facility] Primar y Care [place] [address] [place] [address] Social History Date Tobacco Use [...] * Telephone Encounter - Rehana Valdivia - 04/22/2009 2:28 PM SPECIAL SERVICES COORDINATOR Patients called for patient, left message for Dr. Peng office. Tried to call back @ [phone] and no answer x3 IAL SERVICES COORDINATOR documented in this encounter Plan of Treatment Not on filedocumented as of this encounter Visit Diagnoses Not on filedocumented in this encounter
--- OUTSIDE RECORDS SUMMARY | 2019-10-21 18:36 | XMS REPORT | Encounter Summary ---
Author Author [facility] Organization [facility] Address Unknown Phone Unavailable Care Team Providers Care Spectrograph Operator Name Role Phone PCP Unavailable Reason for Visit * Reason Comments Medication Refill Encounter Details Care Team Description Date Type Department Maurice Durbin MD [address] [place] [address] 04/26/2009 Refill [facility] Primar y Care Normal [address] [place] [address] Social History Date Tobacco Use [...] * Telephone Encounter - Pretty Grullon - 04/26/2009 11:46 AM SCHEDULE MANAGER Jim from [facility] just wanted to call and let us know that pt brought in her script for percocet that was dated 04/12/09 and filled today. Just wanted to make sure we document that it was filled today instead of on the . Jim informed that no further refills will come from our practice, as she has been dismissed. DULE MANAGER documented in this encounter Plan of Treatment Not on filedocumented as of this encounter Visit Diagnoses Not on filedocumented in this encounter
--- OUTSIDE RECORDS SUMMARY | 2019-10-21 18:36 | XMS REPORT | Encounter Summary ---
Author Author [facility] Organization [facility] Address Unknown Phone Unavailable Care Team Providers Care Postal Mail Carrier Name Role Phone PCP Unavailable Reason for Visit * Reason Comments Urinary Catheter Problem pt. had been seen in the er earlier tonight because her cath was leaking. earlier it had been adjusted and the pt . was discharged. when the pt. went home she fell and pulled her cath again . pt. stated it was not draining. upon arrival to the er the pt. was take n to er 4. the balloon was deflated cath was reinserted and 10 cc of saline was added to the balloon. no further leaking noted. Encounter Details Care Team Description Date Type Department Shelley David MD [address] [place] [address] 04/17/2009 Emergency [facility] Emergency Department [address] [phone] Social History Date Tobacco Use Types Packs/Day [...] Signs Reading Time Taken Comments Vital Sign 145/88 04/17/2009 1:13 AM PERSONAL LOAN SPECIALIST Blood Pressure 101 04/17/2009 1:13 AM PERSONAL LOAN SPECIALIST Pulse 36.3 C (97.4 F) 04/17/2009 1:13 AM PERSONAL LOAN SPECIALIST Temperature 20 04/17/2009 1:13 AM PERSONAL LOAN SPECIALIST Respiratory Rate 96% 04/17/2009 1:13 AM PERSONAL LOAN SPECIALIST Oxygen Saturation - - Inhaled Oxygen [...] mg Oral Tb12 mouth every 12 hours. 03/25/2009 04/20/2009 amphetamine-dextroampheta Take 1 Cap by 30 Cap 0 mine SR 24 hour (ADDERALL mouth daily XR) 30 mg Oral Cp24 multimedia instructional designer. adhd 03/12/2009 07/05/2009 albuterol-ipratropium Take 2 Puffs 1 [...] ED Notes * Ari Stanley Physician - 04/19/2009 12:31 PM PERSONAL LOAN SPECIALIST * Lenore Jane RN - 04/17/2009 1:15 AM PERSONAL LOAN SPECIALIST 10 cc saline was added to the balloon of the cath. ONAL LOAN SPECIALIST * Lenore Jane RN - 04/17/2009 1:11 AM PERSONAL LOAN SPECIALIST Doctor thelma notified of pt. ONAL LOAN SPECIALIST documented in this encounter Plan of Treatment Not on filedocumented as of this encounter Visit Diagnoses Not on filedocumented in this encounter
--- OUTSIDE RECORDS SUMMARY | 2019-10-21 18:36 | XMS REPORT | Encounter Summary ---
Author Author [facility] Organization [facility] Address Unknown Phone Unavailable Care Team Providers Care Head Pumper Name Role Phone PCP Unavailable Reason for Visit * Reason Comments Urinary Catheter Problem Pt. reports she has had fol ey cath for 1 week without problems, pulled on dickey this evening and area felt funny and started leaking around catheter site. Encounter Details Care Team Description Date Type Department Shelley David MD [address] [place] [address] 04/16/2009 Emergency [facility] Emergency Department [address] [phone] Social History Date Tobacco Use [...] Signs Reading Time Taken Comments Vital Sign 128/72 04/16/2009 11:14 PM MILKING MACHINE OPERATOR Blood Pressure 100 04/16/2009 11:14 PM MILKING MACHINE OPERATOR Pulse 36.9 C (98.4 F) 04/16/2009 11:14 PM MILKING MACHINE OPERATOR Temperature 18 04/16/2009 11:14 PM MILKING MACHINE OPERATOR Respiratory Rate 97% 04/16/2009 11:14 PM MILKING MACHINE OPERATOR Oxygen Saturation - - Inhaled Oxygen Concentration 127 kg (280 lb) 04/16/2009 11:14 PM MILKING MACHINE OPERATOR Weight 162.6 cm (5' 4") 04/16/2009 11:14 PM MILKING MACHINE OPERATOR Height 48.06 04/16/2009 11:14 PM MILKING MACHINE OPERATOR Body Mass Index documented in this encounter Discharge Instructions * Instructions* Ynes Chung, RN - 04/16/2009 Catheter care as previous. documented in this encounter Medications at Time [...] mouth daily XR) 30 mg Oral Cp24 lean coach. adhd 03/12/2009 07/05/2009 albuterol-ipratropium Take 2 Puffs [...] Ari Stanley Physician - 04/19/2009 12:31 PM MILKING MACHINE OPERATOR * Ynes Chung RN - 04/16/2009 11:31 PM MILKING MACHINE OPERATOR Pt. Given leg bag at this time to use at home. ING MACHINE OPERATOR * Ynes Chung RN - 04/16/2009 11:30 PM MILKING MACHINE OPERATOR Dr. David to room to assess. ING MACHINE OPERATOR * Ynes Chung RN - 04/16/2009 11:20 PM MILKING MACHINE OPERATOR Pt. Arrived to Ed with dickey catheter present. Pt. Thinks that she pulled on it and about pulled it out. Pt. Reported pain in bladder/urethra areas. Small amt of urine with blood streaks noted in tubing. Pt. Was placed in supine position. Cleaned urethra and dickey with iodine. Drained 10ml of saline from bulb of c atheter and advanced catheter until urine flash. Put 10ml of saline back into b ulb. Pt. Reported relief with advancement of catheter and is comfortable. Not ified Dr. David ING MACHINE OPERATOR documented in this encounter Plan of Treatment Not on filedocumented as of this encounter Visit Diagnoses Not on filedocumented in this encounter
--- OUTSIDE RECORDS SUMMARY | 2019-10-21 18:36 | XMS REPORT | Encounter Summary ---
Author Author [facility] Organization [facility] Address Unknown Phone Unavailable Care Team Providers Care Supervisor Cured Meats Name Role Phone PCP Unavailable Reason for Visit * Auth/Cert Referred By Contact Referred To Contact Status Reason Specialty Diagnoses / Procedures [facility] Operating Room [address] [place] [address] Closed Diagnoses sigmoidoscopy P rocedures SIGMOIDOSCOPY Encounter Details Care Team Description Date Type Department Formerly [facility], [address] [place] [address] SIGMOIDOSCOPY 04/19/2009 Surgery [facility] Operating Room [address] [place] [address] Social History Date Tobacco Use [...] Signs Reading Time Taken Comments Vital Sign 125/92 04/19/2009 10:35 AM PAYER SPECIALIST Blood Pressure 88 04/19/2009 10:35 AM PAYER SPECIALIST Pulse 36.2 C (97.2 F) 04/19/2009 10:35 AM PAYER SPECIALIST Temperature 20 04/19/2009 10:35 AM PAYER SPECIALIST Respiratory Rate - - Oxygen Saturation - - Inhaled Oxygen Concentration 131.5 kg (290 lb) 04/19/2009 8:56 AM PAYER SPECIALIST Weight 162.6 cm (5' 4") 04/19/2009 8:56 AM PAYER SPECIALIST Height 49.78 04/19/2009 8:56 AM PAYER SPECIALIST Body Mass Index documented in this encounter Discharge Summaries * Turner Cabral DO - 04/19/2009 10:20 AM PAYER SPECIALIST Patient was admitted and the above procedure was done. Patient tolerated the pro cedure well and was transferred to recovery in stable condition. Recovery was un eventfull and patient then was transferred to floor. The remainder of the patie nts stay was uneventfull. Pain was under control, patient ambulating well, patie nt tolerating advance in diet. By the discharge date all cryteria for discharge were met. Instructions and follow up date given. R SPECIALIST documented in this encounter Discharge Instructions * Patient Instructions* Ari Stanley - 04/20/2009 12:28 PM PAYER SPECIALIST * Additional Instructions* Marianne Delvalle - 04/19/2009 Repeat colonoscopy 5 yrs FOLLOW-UP: YOU WILL NEED A REPEAT COLONOSCOPY IN 5 YEARS ACTIVITY It is essential that someone [...] normal medications unless your doctor tells you otherwise . WHAT YOU CAN EXPECT TODAY Some feelings [...] is severe or gets worse throughout day. [facility] Patient Information 2007 PEPperPRINT. documented in this encounter Medications at Time [...] mouth daily XR) 30 mg Oral Cp24 instructor creeler. adhd 03/12/2009 07/05/2009 albuterol-ipratropium Take 2 Puffs [...] as of this encounter H&P Notes * Turner Cabral DO - 04/19/2009 9:52 AM PAYER SPECIALIST Rectal bleeding Last scope 09/09 Patient Active Problem List Diagnoses Date Noted Sleep Apnea [780.57C] 07/10/2008 Hip Pain [719.45F] [...] prior to encounter Medication Sig Dispense Refill erythromycin (E-MYCIN) 500 mg Oral Tab Take 1 Tab by mouth every 12 hours for 10 days. 20 Tab 0 zolpidem (AMBIEN) 10 mg Oral Tab Take 1 Tab by mouth nightly as needed for Insomnia. 30 Tab 2 lorazepam (ATIVAN) 1 mg Oral Tab Take 1 Tab by mouth every 8 hours as need ed for Other (See Comment). anxiety 90 Tab 2 oxycodone CR (OXYCONTIN) 60 mg Oral Tb12 Take 1 Tab by mouth every 12 hour s. 60 Tab 0 amphetamine-dextroamphetamine SR 24 hour (ADDERALL XR) 30 mg Oral Cp24 Abiodun e 1 Cap by mouth daily instructor creeler. adhd 30 Cap 0 amitriptyline (ELAVIL) 50 mg Oral Tab Take 1 Tab by mouth daily at bedtime . 30 Tab 3 albuterol-ipratropium (COMBIVENT) 103-18 mcg/Actuation Inhalation Aero Abiodun e 2 Puffs by inhalation every 6 hours. 1 Inhaler 5 oxycodone-acetaminophen (PERCOCET) 10-325 mg Oral Tab Take 1 Tab by mouth every 6 hours as needed. 90 Tab 0 Sumatriptan-Naproxen (TREXIMET) 85-500 mg Oral tablet Take 1 Tab by mouth one time as needed for Migraine for 1 dose. May repeat dose once after 2 hr; MAX 2 tablets in 24 hr 9 Tab 0 topiramate (TOPAMAX) 100 mg Oral Tab Take 1 Tab by mouth 2 times daily. 6 0 Tab 5 potassium chloride (K-DUR) 10 mEq Oral TbTQ Take 1 Tab by mouth 2 times da cornell. 60 Tab 5 atorvastatin (LIPITOR) 80 mg Oral Tab Take 0.5 Tabs by mouth Daily LATE. 15 Tab 5 DEPAKOTE 500 mg Oral TbEC Take 1 Tab by mouth 2 times daily. 60 Tab 5 ropinirole (REQUIP) 1 mg Oral Tab Take 1 Tab by mouth daily at bedtime. 3 0 Tab 5 olanzapine (ZYPREXA) 5 mg Oral Tab Take 1 Tab by mouth daily at bedtime. 30 Tab 5 naproxen (NAPROSYN) 500 mg Oral Tab Take 500 mg by mouth 2 times daily wit h meals. levalbuterol HFA (XOPENEX HFA) 45 mcg/Actuation Inhalation HFAA Take 2 Puf fs by inhalation every 6 hours. 1 Inhaler 5 promethazine (PHENERGAN) 25 mg Oral Tab Take 1 Tab by mouth every 6 hours as needed for Nausea. 6 Tab None sumatriptan (IMITREX) 50 mg Oral Tab Take 1 Tab by mouth see administratio n instructions. 6 Tab 0 furosemide (LASIX) 40 mg Oral Tab Take 1 Tab by mouth 2 times daily. 1 tab Bid 60 Tab 5 warfarin (COUMADIN) 5 mg Oral Tab Take 1 Tab by mouth daily. 30 Tab prn citalopram (CELEXA) 40 mg Oral Tab Take 1 Tab by mouth daily. 30 Tab 5 BACLOFEN 10 mg Oral Tab Take 10 mg by mouth 3 times daily as needed for Pa in. ranitidine HCl (ZANTAC) 150 mg Oral Cap Take 1 Cap by mouth 2 times daily. 60 Cap 0 duloxetine (CYMBALTA) 30 mg Oral CpDR Take 1 Cap by mouth daily. 30 Cap 5 duloxetine (CYMBALTA) 60 mg Oral CpDR Take 1 Cap by mouth daily. 30 Cap 5 cyclobenzaprine (FLEXERIL) 10 mg Oral Tab Take 1 Tab by mouth every 8 hour s as needed for Spasm for 90 doses. 30 Tab 2 fluticasone-salmeterol (ADVAIR DISKUS) 500-50 mcg/Dose Inhalation DsDv Abiodun e 1 Puff by inhalation 2 times daily. 1 Device 5 esomeprazole (NEXIUM) 40 mg Oral CpDR Take 1 Cap by mouth daily before a m eal. 30 Cap 1 sucralfate (CARAFATE) 1 gram Oral Tab Take 1 Tab by mouth 4 times daily be fore meals and at bedtime. Four times daily for 72 hours then as needed for naus ea, reflux 60 Tab None ondansetron (ZOFRAN ODT) 4 mg Oral TbDL Take 1 Tab by mouth every 8 hours as needed for Nausea. 30 Tab 0 levalbuterol HFA (XOPENEX HFA) 45 mcg/Actuation Inhalation HFAA Take 2 Puf fs by inhalation every 6 hours. 1 Inhaler 5 fluticasone (FLONASE) 50 mcg/Actuation Both Nostril SpSn Administer 2 Spra ys in each nostril daily. 1 Bottle 3 Oxygen-Air Delivery Systems Misc Leisa Take 2 L/min by inhalation daily at bedtime. ACCU-CHEK ACTIVE CARE Misc Kit by See Admin Instructions route. Before naren ls, at bedtime, and as needed LOVAZA 1 gram Oral Cap Take 1 Gram by mouth 3 times daily. DUONEB IN Take by inhalation every 6 hours. Allergies Allergen Reactions Aloe Vera Unknown Tape (Adhesive Tape) Other (See Comments) Any tape; irritates and tears skin Doxycycline Nausea and Vomiting Past Medical History Diagnosis Date Unspecified Disease [...] Bipolar Disorder, Unspecified Unspecified Arthropathy, Site Unspecified Past Surgical History Procedure Date Hm mammography [...] AGE 11 Alcohol Use: No REVIEW OF SYSTEMS: CARDIOVASCULAR: Denies: chest pain, palpitations RESPIRATORY: cough, hemoptysis, shortness of breath, pleuritic chest pain GI: vomiting, constipation, blood in stool HRRR, Lungs some wheezing, abd soft no masses. Filed Vitals: 04/05/2009 3:17 PM BP: 80/50 Pulse: 84 Temp: 97.5 F (36.4 C) plan Sigmoidoscopy only 2 weeks Risks of the procedure were discussed with the Pt. Bleeding, Cardiac dysfuncti on rarely causing , abnormal reaction to anesthesia, Infection, Injury to surrounding structures causing the need for a second or even a third surgery to fix any ongoing problems. Perforation of viscus requiring added surgery to repa ir. The Pt understands these risks and is willing to proceed with surgery. 04/19/2009 Ayden Odom Is here for above procedure. Seen in pre op area. No new que stions and no new symptoms. Consent reviewed. Pt is ready and willing to proceed . R SPECIALIST documented in this encounter OR Notes * OR Anesthesia - Ari Stanley Physician - 04/20/2009 12:28 PM PAYER SPECIALIST * Operative Report - Turner Cabral DO - 04/19/2009 10:17 AM PAYER SPECIALIST Colonoscopy Procedure Note Procedure: sigmoidoscopy --diagnostic Pre-operative Diagnosis:rectal bleeding Post-operative Diagnosis: same Sedation: Demerol 50 mg IV, Versed 4 mg IV Procedure Details Informed consent was [...] and advanced under direct vision to the sigmoid colon. The quality of the colonic preparation was adequate. A careful inspection was made as the col onoscope was withdrawn, findings are described below. Appropriate photodocument ation was not obtained. Findings: -hemorrhoids (internal), Small in size irritated and may occasionally bleed Complications: None; patient tolerated the procedure well. Recommendations: -Repeat colonoscopy in 5 years. Turner Cabral DO R SPECIALIST documented in this encounter Miscellaneous Notes * Scanned Form - Aojcarlos Lemons, Ari Physician - 04/20/2009 12:28 PM PAYER SPECIALIST documented in this encounter Plan of Treatment Not on filedocumented as of this encounter Procedures Comments Procedure Name Priority Date/Time Associated Diag nosis SIGMOIDOSCOPY 04/19/2009 7:20 PM PAYER SPECIALIST documented in this encounter Visit Diagnoses Not on filedocumented in this encounter
--- OUTSIDE RECORDS SUMMARY | 2019-10-21 18:36 | XMS REPORT | Encounter Summary ---
Author Author [facility] Organization [facility] Address Unknown Phone Unavailable Care Team Providers Care Conduit Installer Name Role Phone PCP Unavailable Reason for Visit * Reason Comments Constipation pt. reports last bm was the 18 of this month. pt. reports that she feels full has the urge to have bm but is medardo ble to. Encounter Details Care Team Description Date Type Department Constipation 04/30/2009 Emergency [facility] Emergency Department [address] [address] Social History Date Tobacco Use [...] Signs Reading Time Taken Comments Vital Sign 129/81 04/30/2009 2:30 PM DIRECT MARKETING REPRESENTATIVE Blood Pressure 103 04/30/2009 2:30 PM DIRECT MARKETING REPRESENTATIVE Pulse 36.8 C (98.2 F) 04/30/2009 2:30 PM DIRECT MARKETING REPRESENTATIVE Temperature 22 04/30/2009 2:30 PM DIRECT MARKETING REPRESENTATIVE Respiratory Rate 96% 04/30/2009 2:30 PM DIRECT MARKETING REPRESENTATIVE Oxygen Saturation - - Inhaled Oxygen Concentration 136.1 kg (300 lb) 04/30/2009 2:30 PM DIRECT MARKETING REPRESENTATIVE Weight 162.6 cm (5' 4") 04/30/2009 2:30 PM DIRECT MARKETING REPRESENTATIVE Height 51.49 04/30/2009 2:30 PM DIRECT MARKETING REPRESENTATIVE Body Mass Index documented in this encounter Discharge Instructions * Instructions* Emy Bran ARNP - 04/30/2009 Over the counter Mag Citrate 1 bottle today, repeat in am if you do not have sev eral large BMS Drink plenty of fluids, especially today and tomorrow. High Fiber Diet. Miralax 1 cap daily, titrate for a daily BM. * Attachments The following attachments cannot be sent through Care Everywhere.* CONSTIPATION IN ADULTS: AFTER YOUR VISIT (TURKMEN) documented in this encounter Medications at Time [...] ED Notes * Ari Stanley Physician - 05/03/2009 11:05 AM DIRECT MARKETING REPRESENTATIVE * Ynes Chung, RN - 04/30/2009 2:57 PM DIRECT MARKETING REPRESENTATIVE AAS "no acute findings" per Dr. Barrios. CT MARKETING REPRESENTATIVE * Emy Bran ARNP - 04/30/2009 2:45 PM DIRECT MARKETING REPRESENTATIVE HISTORY OF PRESENT ILLNESS Ayden Hoffmann Odom, a 38 y.o. female presents to the ED with a Chief Complaint o f Constipation Patient is a 38 y.o. female presenting with constipation. The history is provide d by the patient. Constipation This is a new problem. The current episode started more than 2 days ago. The sto ol is described as pellet like and firm. Associated symptoms include flatus. The re is fiber in the patient's diet. She does not exercise regularly. There has no t been adequate water intake. She has tried osmotic agents and psyllium for the symptoms. The treatment provided no relief. Risk factors include immobility. REVIEW OF SYSTEMS Review of Systems Constitutional: Negative for fever and chills. Gastrointestinal: Positive for constipation. Negative for nausea, vomiting and d iarrhea. PAST MEDICAL HISTORY REVIEWED Past Medical History [...] 04/19/2009 SIGMOIDOSCOPY performed by MUKESH DOMÍNGUEZ at [facility] OR Family History Problem Relation Heart [...] Cp24 Take 1 Cap by mouth daily air drier. adhd DEPAKOTE 500 mg Oral TbEC Take [...] every 8 hours as needed for Nausea. levalbuterol HFA (XOPENEX HFA) 45 mcg/Actuation Inhalation HFAA Take 2 Puffs by inhalation every 6 hours. fluticasone (FLONASE) 50 mcg/Actuation Both Nostril SpSn Administer 2 Sprays in each nostril daily. Oxygen-Air Delivery Systems Misc Leisa Take 2 L/min by inhalation daily at [facility]. ACCU-CHEK ACTIVE CARE Misc Kit by See Admin Instructions route. Before meals , at bedtime, and as needed LOVAZA 1 gram Oral Cap Take 1 Gram by mouth 3 times daily. DUONEB IN Take by inhalation every 6 hours. amoxicillin (AMOXIL) 500 mg Oral Tab Take 1 Tab by mouth 3 times daily. PHYSICAL EXAM Initial Vitals BP 04/30/09 1430 129/81 mmHg Pulse 04/30/09 1430 103 Resp 04/30/09 1430 22 Temp 04/30/09 1430 98.2 F (36.8 C) Temp src 04/30/09 1430 Oral SpO2 04/30/09 1430 96 % Physical Exam Constitutional: She is oriented. She appears well-developed and well-nourished. Pulmonary/Chest: Effort normal and breath sounds normal. Abdominal: Bowel sounds are normal. She exhibits no mass. Generalized tenderness is present. She has no rigidity, no rebound, no guarding, no pain at McBurney's point and no Rouse's sign. Musculoskeletal: Normal range of motion. Neurological: She is alert and oriented. Skin: Skin is warm and dry. Psychiatric: She has a normal mood and affect. Her behavior is normal. MDM Coding Reviewed: nursing note and vitals DIAGNOSTICS LAB: RADIOLOGY: XR ABDOMEN W DECUB AND OR ERECT Radiologist Impression: : Moderate retention of stool within the large bowel. EKG: PROCEDURES MEDICAL DECISION MAKING AND PLAN OF assisted mag citrate then mirilax for regulation. pmd routine care and prn Last vitals BP 129/81 | Pulse 103 | Temp(Src) 98.2 F (36.8 C) (Oral) | Resp 22 | Ht 5' 4" (1.626 m) | Wt 136.079 kg | SpO2 96% | LMP Hysterectomy CLINICAL IMPRESSION Encounter Diagnoses Code Name Primary? 564.00A Constipation CASE DISCUSSED PATIENT COUNSELING Diagnostics reviewed and questions answered. Diagnosis, treatment options and p radha of care discussed with understanding verbalized. DISPOSITION, EDUCATION AND MEDICATION RECONCILIATION Medications reconciled. See after visit summary for patient education on discha rged patients. CT MARKETING REPRESENTATIVE documented in this encounter Plan of Treatment Not on filedocumented as of this encounter Procedures Comments Procedure Name Priority Date/Time Associated Diag nosis XR ABDOMEN W DECUB AND OR Stat 04/30/2009 ERECT 2 VW 2:24 PM DIRECT MARKETING REPRESENTATIVE documented in this encounter Results * XR ABDOMEN W DECUB AND OR ERECT (04/30/2009 2:24 PM DIRECT MARKETING REPRESENTATIVE) Specimen Impressions Performed At : Moderate retention of stool within the large bowel. Narrative Performed At TWO VIEW ABDOMEN: INDICATIONS: CONSTIPATION. Supine and upright views of the abdomen were obtained. Comparison is made with 10-02-08. There is an inferior v nathan cava filter present. There is moderate retention of stool noted withi n the large bowel. No mechanical obstruction or pneumoperitoneum identif ied. Postoperative changes involving the femur is noted. Procedure Note Macho Barrios MD - 04/30/2009 3:27 PM DIRECT MARKETING REPRESENTATIVE TWO VIEW ABDOMEN: INDICATIONS: CONSTIPATION. Supine and upright views of the abdomen were obtained. Comparison is made with 10-02-08. There is an inferior vena cava filter present. There is moderate retention of stool noted within the large bowel. No mechanical obstruction or pneumoperitoneum identified. Postoperative changes involving the femur is noted. IMPRESSION: Moderate retention of stool within the large bowel. documented in this encounter Visit Diagnoses Diagnosis Constipation Unspecified constipation documented in this encounter
--- OUTSIDE RECORDS SUMMARY | 2019-10-21 18:36 | XMS REPORT | Encounter Summary ---
Author Author [facility] Organization [facility] Address Unknown Phone Unavailable Care Team Providers Care Inspector Experimental Assembly Name Role Phone PCP Unavailable Reason for Visit * Auth/Cert Referred By Contact Referred To Contact Status Reason Specialty Diagnoses / Procedures [facility] Operating Room [address] [place] [address] Closed Diagnoses sigmoidoscopy P rocedures SIGMOIDOSCOPY Encounter Details Care Team Description Date Type Department [facility] [address] [place] [address] 04/19/2009 Hospital [facility] F ort Encounter Terry Pre Post Op [address] [place] [address] Social History Date Tobacco Use [...] Comments Vital Sign 125/92 04/19/2009 10:35 AM LEGAL SUPPORT ANALYST Blood Pressure 88 04/19/2009 10:35 AM LEGAL SUPPORT ANALYST Pulse 36.2 C (97.2 F) 04/19/2009 10:35 AM LEGAL SUPPORT ANALYST Temperature 20 04/19/2009 10:35 AM LEGAL SUPPORT ANALYST Respiratory Rate - - Oxygen Saturation - - Inhaled Oxygen Concentration 131.5 kg (290 lb) 04/19/2009 8:56 AM LEGAL SUPPORT ANALYST Weight 162.6 cm (5' 4") 04/19/2009 8:56 AM LEGAL SUPPORT ANALYST Height 49.78 04/19/2009 8:56 AM LEGAL SUPPORT ANALYST Body Mass Index documented in this encounter Discharge Summaries * Turner Cabral DO - 04/19/2009 10:20 AM LEGAL SUPPORT ANALYST Patient was admitted and the above procedure [...] met. Instructions and follow up date given. L SUPPORT ANALYST documented in this encounter Discharge Instructions * Patient Instructions* Ari Stanley - 04/20/2009 12:28 PM LEGAL SUPPORT ANALYST * Additional Instructions* Marianne Delvalle - 04/19/2009 [...] is severe or gets worse throughout day. [facility] Patient Information 2007 Cam[employer]ent. documented in this encounter Medications at Time [...] mouth daily XR) 30 mg Oral Cp24 marketing director assisted living. adhd 03/12/2009 07/05/2009 albuterol-ipratropium Take 2 Puffs [...] Turner Cabral DO - 04/19/2009 9:52 AM LEGAL SUPPORT ANALYST Rectal bleeding Last scope 09/09 Patient Active [...] Abiodun e 1 Cap by mouth daily marketing director assisted living. adhd 30 Cap 0 amitriptyline (ELAVIL) 50 [...] is ready and willing to proceed . L SUPPORT ANALYST documented in this encounter OR Notes * OR Anesthesia - Ari Stanley Physician - 04/20/2009 12:28 PM LEGAL SUPPORT ANALYST * Operative Report - Turner Cabral DO - 04/19/2009 10:17 AM LEGAL SUPPORT ANALYST Colonoscopy Procedure Note Procedure: sigmoidoscopy --diagnostic Pre-operative [...] well. Recommendations: -Repeat colonoscopy in 5 years. Truner Cabral DO L SUPPORT ANALYST documented in this encounter Miscellaneous Notes * Scanned Form - Aojcarlos Lemons, Ari Physician - 04/20/2009 12:28 PM LEGAL SUPPORT ANALYST documented in this encounter Plan of Treatment Not on filedocumented as of this encounter Procedures Comments Procedure Name Priority Date/Time Associated Diag nosis SIGMOIDOSCOPY 04/19/2009 7:20 PM LEGAL SUPPORT ANALYST documented in this encounter Visit Diagnoses Not on filedocumented in this encounter
--- OUTSIDE RECORDS SUMMARY | 2019-10-21 18:36 | XMS REPORT | Encounter Summary ---
Author Author [facility] Organization [facility] Address Unknown Phone Unavailable Care Team Providers Care Box Lining Machine Feeder Name Role Phone PCP Unavailable Reason for Visit * Reason Comments Medication Refill Encounter Details Care Team Description Date Type Department Maurice Durbin MD [address] [place] [address] 04/20/2009 Refill [facility] Primar y Care [place] [address] [place] [address] Social History Date Tobacco Use [...]
--- OUTSIDE RECORDS SUMMARY | 2019-10-21 18:36 | XMS REPORT | Encounter Summary ---
Author Author [facility] Organization [facility] Address Unknown Phone Unavailable Care Team Providers Care Oil Burner Journeyman Name Role Phone PCP Unavailable Reason for Visit * Reason Comments Urinary Catheter Problem Catheter leaking, wants cat heter changed. Also requesting to have new leg securement device changed. * Auth/Cert Referred By Contact Referred To Contact Status Reason Specialty Diagnoses / Procedures [facility] Emergency [address] [place] [address] Closed Emergency Medicine Encounter Details Care Team Description Date Type Department CanalesSaturnino escobedo MD NO ADDRESS ON FILE Urinary Retention 04/21/2009 Emergency [facility] Emergency Department [address] [address] Social History Date Tobacco Use [...] Signs Reading Time Taken Comments Vital Sign 176/80 04/21/2009 8:06 AM JUVENILE PROBATION OFFICER Blood Pressure 101 04/21/2009 8:06 AM JUVENILE PROBATION OFFICER Pulse 36.5 C (97.7 F) 04/21/2009 8:06 AM JUVENILE PROBATION OFFICER Temperature 20 04/21/2009 8:06 AM JUVENILE PROBATION OFFICER Respiratory Rate 95% 04/21/2009 8:06 AM JUVENILE PROBATION OFFICER Oxygen Saturation - - Inhaled Oxygen Concentration - - Weight 165.1 cm (5' 5") 04/21/2009 8:06 AM JUVENILE PROBATION OFFICER Height - - Body Mass Index documented in this encounter Discharge Instructions * Instructions* Lakeisha Abdi RN - 04/21/2009 Keep follow up appointment with Dr. Christian. Any further problems with catheter, contact Dr. Gottlieb office. documented in this encounter Medications at Time [...] ED Notes * Saturnino Canales MD - 04/25/2009 9:13 AM JUVENILE PROBATION OFFICER HISTORY OF PRESENT ILLNESS Ayden Odom, a 38 y.o. female presents to the ED with a Chief Complaint o f Urinary Catheter Problem Patient is a 38 y.o. female presenting with urinary catheter problem. Urinary Catheter Problem REVIEW OF SYSTEMS ROS [...] performed by MUKESH DOM[facility]NGUEZ at [facility] OR Family History Problem Relation Heart [...] Aloe vera, Tape and Doxycycline HOME MEDICATIONS amphetamine-dextroamphetamine SR 24 hour (ADDERALL XR) 30 mg Oral Cp24 Take 1 Cap by mouth daily interlocking machine operator. adhd amoxicillin (AMOXIL) 500 mg Oral Tab [...] 2 L/min by inhalation daily at [facility]. ACCU-CHEK ACTIVE CARE Misc Kit by See Admin Instructions route. Before meals , at bedtime, and as needed LOVAZA 1 gram Oral Cap Take 1 Gram by mouth 3 times daily. DUONEB IN Take by inhalation every 6 hours. PHYSICAL EXAM Initial Vitals BP 04/21/09 0806 176/80 mmHg Pulse 04/21/09 0806 101 Resp 04/21/09 0806 20 Temp 04/21/09 0806 97.7 F (36.5 C) Temp src 04/21/09 0806 Oral SpO2 04/21/09 0806 95 % Physical Exam Coding DIAGNOSTICS LAB: RADIOLOGY: EKG: PROCEDURES MEDICAL DECISION MAKING AND PLAN OF CARE Last vitals BP 176/80 | Pulse 101 | Temp(Src) 97.7 F (36.5 C) (Oral) | Resp 20 | Ht 5' 5" (1.651 m) | SpO2 95% | LMP Hysterectomy CLINICAL IMPRESSION Encounter Diagnoses Code Name Primary? 788.20B Urinary Retention CASE DISCUSSED PATIENT COUNSELING Diagnostics reviewed and questions answered. Diagnosis, treatment options and p radha of care discussed with understanding verbalized. DISPOSITION, EDUCATION AND MEDICATION RECONCILIATION Medications reconciled. See after visit summary for patient education on discha rged patients. NILE PROBATION OFFICER * Matt Lemons, Ari Physician - 04/22/2009 11:11 AM JUVENILE PROBATION OFFICER * Lakeisha Abdi RN - 04/21/2009 8:18 AM JUVENILE PROBATION OFFICER Pt states that she feels like her bladder is full. Bladder scan completed and r evealed less than 100 cc in bladder. Pt request that catheter be "pushed back u p there where it belongs." Removed water from balloon and advanced cath tubing. Pt wanting to be seen by Dr. Christian today and set up time to have surgery for suprapubic cath insertion sooner that middle of May. NILE PROBATION OFFICER * Lakeisha Abdi RN - 04/21/2009 7:56 AM JUVENILE PROBATION OFFICER Not in waiting room at this time. NILE PROBATION OFFICER documented in this encounter Plan of Treatment Not on filedocumented as of this encounter Visit Diagnoses Diagnosis Urinary retention Retention of urine, unspecified documented in this encounter
--- OUTSIDE RECORDS SUMMARY | 2019-10-21 18:37 | XMS REPORT | Encounter Summary ---
Author Author [facility] Organization [facility] Address Unknown Phone Unavailable Care Team Providers Care Workers Compensation Analyst Name Role Phone PCP Unavailable Reason for Visit * Reason Comments Rectal Bleeding * Consult, Test & Treat (Routine) Referred By Contact Referred To Contact Status Reason Specialty Diagnoses / Procedures Maurice Durbin MD [address] [place] [address] Turner Cabral DO [address] [place] [address] Closed Diagnoses Rectal bleeding Encounter Details Care Team Description Date Type Department Turner Cabral DO [address] [place] [address] Unspecified Pre-Operative Examination (P rimary Dx) 04/01/2009 Initial consult [facility] [place] [address] [place] [address] Social History Date Tobacco Use [...] as of this encounter Progress Notes * Turner Cabral DO - 07/26/2010 1:56 PM OSTEOPATHIC MEDICINE TEACHER Apt cancelled. OPATHIC MEDICINE TEACHER documented in this encounter Plan of Treatment Not on filedocumented as of this encounter Visit Diagnoses Diagnosis Preoperative examination, unspecified - Primary documented in this encounter
--- OUTSIDE RECORDS SUMMARY | 2019-10-21 18:37 | XMS REPORT | Encounter Summary ---
Author Author [facility] Organization [facility] Address Unknown Phone Unavailable Care Team Providers Care Photo Printer Name Role Phone PCP Unavailable Reason for Visit * Reason Comments Seizure Patient reported had seizur e yesterday(and reported history of past seizures) and fell off couch, c/o left leg hurting above knee: rated pain on scale 1-10 at 7. Report can put gutierrez ght on leg but painful. Instructed patient would need to present for appoi ntment for proper evaluation of leg and referred to Urgent Care in her home town. Patient verbalized would go to Urgent Care Clinic. Jim Barrios RN Encounter Details Care Team Description Date Type Department Dwayne Barrios Seizure (Patient reported had seizure ye sterday(and reported history of past seizures) and fell off couch, c/o left leg hurting above knee: rated pain on scale 1-10 at 7. Report can put weight on leg but painful. Instructed patient would need to present for appointment for proper evaluation of leg and referred to Urgent Care in her hometown. Patient verbalized would go to Urgent Care Clinic. Jim Barrios RN) 04/10/2009 Telephone [facility] [address] [phone] Social History Date Tobacco Use Types Packs/Day [...]
--- OUTSIDE RECORDS SUMMARY | 2019-10-21 18:37 | XMS REPORT | Encounter Summary ---
Author Author [facility] Organization [facility] Address Unknown Phone Unavailable Care Team Providers Care Venetian Blind Machine Operator Name Role Phone PCP Unavailable Reason for Visit * Reason Comments Seizure pt says she is having seizu res daily, pt thinks it is b/c she is off her gabapentin, started two weeks ago Numbness pt says that her legs are n umb Headache Encounter Details Care Team Description Date Type Department Maurice Durbin MD [address] [place] [address] Seizure (Primary Dx); DM w/o Complication Type II; Hip Pain; Chronic Airway Obstruction, not Elsewhere Classified; DVT (Deep Venous Thrombosis) 04/12/2009 Office Visit [facility] [address] [place] [address] Social History Date Tobacco Use [...] Signs Reading Time Taken Comments Vital Sign 120/70 04/12/2009 11:01 AM BOAT FUELER Blood Pressure 92 04/12/2009 11:01 AM BOAT FUELER Pulse 36.8 C (98.3 F) 04/12/2009 11:01 AM BOAT FUELER Temperature - - Respiratory Rate - - Oxygen Saturation - - Inhaled Oxygen Concentration - - Weight - - Height - - Body Mass Index documented in this encounter Progress Notes * Maurice Durbin MD - 04/12/2009 5:10 PM BOAT FUELER Ayden Odom is a 38 y.o. female Chief Complaint Patient presents with Seizure pt says she is having seizures daily, pt thinks it is b/c she is off her gabap entin, started two weeks ago Numbness pt says that her legs are numb Headache has been having problems since Dr johnson had stopped the neuontin claims to have seizures informed the patient that we had 2 phone calls from her "friends" raisa stewart that she was selling the pills I explained that with the protocol we will get a UDS Review of Systems - General ROS: negative for weight changes, fever Psychological ROS: negative for anxiety or depressive symptoms Ophthalmic ROS: negative for visual changes, ocular redness or discharge ENT ROS: negative for nasal congestion, drainage or bleeding, sore throat, dysph agia or ear pain Allergy and Immunology ROS: negative for itchy eyes, nasal congestion, sneezing, lymphadenopathy Hematological and Lymphatic ROS: negative for swollen glands or abnormal bleedin g Endocrine ROS: negative for polyuria/polydipsia or new [...] negative for dysuria, trouble voiding, or hematuria Musculoskeletal ROS: positive for - joint pain and muscle pain Neurological ROS: positive for - seizures Dermatological ROS: negative for skin rashes or unusual skin lesions I have reviewed the patient's past medical, surgical and family history in [facility] and updated the computerized patient record. OBJECTIVE: Physical Exam: BP 120/70 | Pulse 92 | Temp(Src) 98.3 F (36.8 C) (Tympanic) | LMP Hysterecto my General appearance: alert, in no distress Lungs: [...] addison or thighs, normal strength, normal tone ASSESSMENT: Encounter Diagnoses Name Primary? Seizure Yes DM w/o Complication Type II Hip Pain Chronic Airway Obstruction, not Elsewhere Classified DVT (Deep Venous Thrombosis) PLAN: Orders Placed This Encounter Protime-inr Valproic acid level, total Urinalysis with reflex culture Drug screen, urine Depakote 500 mg tab Gabapentin 800 mg tab Oxycodone-acetaminophen 10 mg-325 mg tab FUELER documented in this encounter Plan of Treatment Not on filedocumented as of this encounter Results * VALPROIC ACID LEVEL, TOTAL (04/12/2009 12:00 PM BOAT FUELER) Pathologist [facility] VALPROIC ACID 43.4 (L)Comment: 50 - 100 ug/ml [facility] TOTAL [facility][id number], ,,,, [facility] Specimen Blood specimen (specimen) Performing Organization Address [facility] one Number INTERFACE [facility]# [id number] [facility] Milly BRITTON S [address] [facility] [address] [place] [address] * PROTIME-INR (04/12/2009 12:00 PM BOAT FUELER) Pathologist [facility] PROTIME 18.5 (H) 9.5 - 11.5 Sec [facility] INR 1.83 (L)Comment: 2.0 - 3.0 [id number], ,,,, [facility] Specimen Blood specimen (specimen) Performing Organization Address [facility] Ph one Number INTERFACE [facility]# [id number] [facility] Milly BRITTON S [address] [facility] [address] [place] [address] * DRUG SCREEN, URINE (04/12/2009 11:51 AM BOAT FUELER) AMPHETAMINE Positive [facility] QUAL, URINE CENTER [facility] BARBITURATE Negative [facility] QUAL, URINE CENTER [facility] BENZODIAZEPINE Negative [facility] QUAL, URINE CENTER [facility] COCAINE METAB Negative [facility] QUAL URINE CENTER [facility] CANNABINOIDS Negative [facility] QUAL, URINE CENTER [facility] METHADONE QUAL, Negative [facility] URINE [facility] OPIATE QUAL, Negative [facility] URINE [facility] PCP QUAL, URINE Negative [facility] Comment: [facility] Chain of Custody Handling was REBA LUA not performed on this specimen. This screen will not meet medical-legal requirements. CUTOFF LIMITS Amphetamines 1000 ng/ml Barbiturates 200 ng/ml Benzodiazepines 200 ng/ml Cocaine metabolite 300 ng/ml Marijuana metabolites 50 ng/ml Methadone 300 ng/ml Opiates 2000 ng/ml PCP 25 ng/ml [facility]#[id number], ,,,, Specimen Urine specimen (specimen) Performing Organization Address City/State/Zipcode Ph one Number INTERFACE [facility] [id number] Milly RIOJAS [address] RE[facility] [address] [facility] * URINALYSIS WITH REFLEX CULTURE (04/12/2009 11:51 AM BOAT FUELER) GLUCOSE UA Negative Negative mg/dl [facility] ALYSA RE[facility] BILIRUBIN UA Negative Negative [facility] KETONES UA Negative Negative mg/dl [facility] SPECIFIC <=1.005 [facility] GRAVITY UA [facility] PH UA 5.0 [facility] PROTEIN UA Negative Negative mg/dl [facility] UROBILINOGEN UA 0.2 0.2 - 1.0 EU/dl [facility] NITRITE UA Negative Negative [facility] BLOOD UA Negative Negative [facility] LEUKOCYTE Trace (H) Negative [facility] ESTERASE UA [facility] WBC UA 0-5 0 - 5 /HPF [facility] RBC UA Negative 0 - 5 /HPF [facility] EPITHELIAL occ sq [facility] CELLS, URINE [facility] WBC CLUMPS Neg Negative /LPF [facility] AL[facility] CASTS, URINE Neg 0-4 Hyaline /LPF [facility] CRYSTALS, URINE Neg [facility] BACTERIA UA 3+ (H) NEG [facility] COMMENT, URINE 1+ STARCH GRANULES [facility] COMMENT, URINE See Culture Report.Comment: [facility] ACCT#[id number], ,,,, RE[facility] Specimen Urine, clean catch Performing Organization Address City/State/Zipcode Ph one Number INTERFACE SYSTEM [facility]# [id number] Milly RIOJAS [address] RE[facility] [address] [facility] documented in this encounter Visit Diagnoses Diagnosis Seizure - Primary Other convulsions Type II or unspecified type diabetes me llitus without mention of complication, not stated as uncontrolled Hip pain Pain in joint, pelvic region and thigh Chronic airway obstruction, not elsewhe re classified DVT (deep venous thrombosis) Acute venous embolism and thrombosis of unspecified deep vessels of lower extremity documented in this encounter
--- OUTSIDE RECORDS SUMMARY | 2019-10-21 18:37 | XMS REPORT | Encounter Summary ---
Author Author [facility] Organization [facility] Address Unknown Phone Unavailable Care Team Providers Care Flight Service Agent Name Role Phone PCP Unavailable Reason for Visit * Reason Comments Rectal Bleeding ref. by dr. mayer * Consult, Test & Treat (Routine) Referred By Contact Referred To Contact Status Reason Specialty Diagnoses / Procedures Maurice Mayer MD [address] [place] [address] [facility] [address] [place] [address] Closed Diagnoses Rectal bleeding Encounter Details Care Team Description Date Type Department Cabral [facility] [address] [place] [address] Rectal Bleeding (Primary Dx) 04/05/2009 Initial consult [facility] [address] [place] [address] Social History Date Tobacco Use [...] Signs Reading Time Taken Comments Vital Sign 80/50 04/05/2009 3:17 PM TITLE I INSTRUCTIONAL ASSISTANT Blood Pressure 84 04/05/2009 3:17 PM TITLE I INSTRUCTIONAL ASSISTANT Pulse 36.4 C (97.5 F) 04/05/2009 3:17 PM TITLE I INSTRUCTIONAL ASSISTANT Temperature - - Respiratory Rate - - Oxygen Saturation - - Inhaled Oxygen Concentration - - Weight - - Height - - Body Mass Index documented in this encounter Progress Notes * Turner Cabral DO - 04/05/2009 4:52 PM TITLE I INSTRUCTIONAL ASSISTANT Rectal bleeding Last scope 09/09 Patient Active [...] 1 Tab by mouth every 12 hours fo r 10 days. 20 Tab 0 zolpidem (AMBIEN) [...] 1 Tab by mouth every 12 hours. 60 Tab 0 amphetamine-dextroamphetamine SR 24 hour (ADDERALL XR) 30 mg Oral Cp24 Take 1 Cap by mouth daily white shoe ragger. adhd 30 Cap 0 amitriptyline (ELAVIL) 50 mg Oral Tab Take 1 Tab by mouth daily at bedtime. 30 Tab 3 albuterol-ipratropium (COMBIVENT) 103-18 mcg/Actuation [...] mouth 2 times daily. 60 Tab 5 potassium chloride (K-DUR) 10 mEq [...] before a naren l. 30 Cap 1 sucralfate (CARAFATE) 1 gram Oral Tab Take 1 Tab by mouth 4 times daily befo re meals and at bedtime. Four times daily for 72 hours then as needed for nausea , reflux 60 Tab None ondansetron (ZOFRAN ODT) [...] and is willing to proceed with surgery. E I INSTRUCTIONAL ASSISTANT documented in this encounter Plan of Treatment Not on filedocumented as of this encounter Visit Diagnoses Diagnosis Rectal bleeding - Primary Hemorrhage of rectum and anus documented in this encounter
--- OUTSIDE RECORDS SUMMARY | 2019-10-21 18:37 | XMS REPORT | Encounter Summary ---
Author Author [facility] Organization [facility] Address Unknown Phone Unavailable Care Team Providers Care Street Contractor Name Role Phone PCP Unavailable Reason for Visit * Reason Comments Urinary Catheter Problem * Auth/Cert Referred By Contact Referred To Contact Status Reason Specialty Diagnoses / Procedures [facility] Emergency [address] [place] [address] Closed Emergency Medicine Encounter Details Care Team Description Date Type Department Homar Christian MD [address] [place] [address] 04/12/2009 Emergency [facility] Emergency Department [address] [address] Social History Date Tobacco Use [...] Signs Reading Time Taken Comments Vital Sign 117/88 04/12/2009 3:42 PM AGRICULTURAL INSPECTOR Blood Pressure 94 04/12/2009 3:42 PM AGRICULTURAL INSPECTOR Pulse 36.5 C (97.7 F) 04/12/2009 3:42 PM AGRICULTURAL INSPECTOR Temperature 18 04/12/2009 3:42 PM AGRICULTURAL INSPECTOR Respiratory Rate 97% 04/12/2009 3:42 PM AGRICULTURAL INSPECTOR Oxygen Saturation - - Inhaled Oxygen Concentration [...] mouth every 6 Tab hours as needed. 04/02/2009 04/12/2009 erythromycin (E-MYCIN) Take 1 Tab by 20 Tab 0 500 mg Oral Tab mouth every 12 hours for 10 days. 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 CULTURAL INSPECTOR * Elizabeth Blood RN - 04/12/2009 3:57 PM AGRICULTURAL INSPECTOR Dx Urine incontinence. CULTURAL INSPECTOR documented in this encounter Miscellaneous Notes * Scanned Form - Matt Lemons, Ari Physician - 04/13/2009 11:25 AM AGRICULTURAL INSPECTOR documented in this encounter Plan of Treatment Not on filedocumented as of this encounter Visit Diagnoses Not on filedocumented in this encounter
--- OUTSIDE RECORDS SUMMARY | 2019-10-21 18:37 | XMS REPORT | Encounter Summary ---
Author Author [facility] Organization [facility] Address Unknown Phone Unavailable Care Team Providers Care Professor Of Pathology Name Role Phone PCP Unavailable Reason for Visit * Reason Comments Referral Dr Garcia Encounter Details Care Team Description Date Type Department Maurice Durbin MD [address] [place] [address] Referral (Dr Garcia) 03/30/2009 Telephone [facility] Primar y Care [place] [address] [place] [address] Social History Date Tobacco Use [...] * Telephone Encounter - Patt Malik - 03/30/2009 12:24 PM CDT I could not reach anyone on her contact list except her brother. I left a setObject e with him to have her call us. documented in this encounter Plan of Treatment Not on filedocumented as of this encounter Visit Diagnoses Not on filedocumented in this encounter
--- OUTSIDE RECORDS SUMMARY | 2019-10-21 18:37 | XMS REPORT | Encounter Summary ---
Author Author [facility] Organization [facility] Address Unknown Phone Unavailable Care Team Providers Care Speeder Operator Name Role Phone PCP Unavailable Reason for Visit * Reason Comments Medication Refill Encounter Details Care Team Description Date Type Department Maurice Durbin MD [address] [place] [address] 04/16/2009 Refill [facility] Primar y Care [place] [address] [place] [address] Social History Date Tobacco Use [...]
--- OUTSIDE RECORDS SUMMARY | 2019-10-21 18:37 | XMS REPORT | Encounter Summary ---
Author Author [facility] Organization [facility] Address Unknown Phone Unavailable Care Team Providers Care Linoleum Layer Helper Name Role Phone PCP Unavailable Reason for Visit * Reason Comments Urinary Frequency Encounter Details Care Team Description Date Type Department Maurice Durbin MD [address] [place] [address] Urinary Frequency 03/30/2009 Telephone [facility] Primar y Care [place] [address] [place] [address] Social History Date Tobacco Use [...] * Telephone Encounter - Izzy Stewart - 03/30/2009 1:58 PM CDT Unable to contact patient as all contact phone #'s are disconnected. Contacted Мария Bob (brother) who is going to attempt to contact patient and give her [phone] for contact to coordinate urology appt requested by Dr Durbin./morgan Also requested registration to get UPDATED contact phone numbers with patient. /[email or web address] documented in this encounter Plan of Treatment Not on filedocumented as of this encounter Visit Diagnoses Not on filedocumented in this encounter
--- OUTSIDE RECORDS SUMMARY | 2019-10-21 18:37 | XMS REPORT | Encounter Summary ---
Author Author [facility] Organization [facility] Address Unknown Phone Unavailable Care Team Providers Care Reverberatory Furnace Supervisor Name Role Phone PCP Unavailable Reason for Visit * Reason Comments Cough pt. reports productive coug h, and chilling. she reports difficulty lying down do to coughing. Encounter Details Care Team Description Date Type Department Reggie Ramirez MD NO ADDRESS ON FILE URI (Upper Respiratory Infection); Bronchitis 04/06/[address] [facility] - Emergency Department [facility] 04/07/[address] [id number] Social History Date Tobacco Use Types Packs/Day [...] Signs Reading Time Taken Comments Vital Sign 104/67 04/07/2009 12:02 AM GAMBLING CASHIER Blood Pressure 82 04/07/2009 12:02 AM GAMBLING CASHIER Pulse 35.9 C (96.7 F) 04/07/2009 12:02 AM GAMBLING CASHIER Temperature 18 04/07/2009 12:02 AM GAMBLING CASHIER Respiratory Rate 96% 04/07/2009 12:02 AM GAMBLING CASHIER Oxygen Saturation - - Inhaled Oxygen Concentration 133.8 kg (295 lb) 04/07/2009 12:02 AM GAMBLING CASHIER Weight 161.3 cm (5' 3.5") 04/07/2009 12:02 AM GAMBLING CASHIER Height 51.44 04/07/2009 12:02 AM GAMBLING CASHIER Body Mass Index documented in this encounter Discharge Instructions * Instructions* Yenny Nowak, RN - 04/07/2009 documented in this encounter Medications at Time of Discharge Start Date End Date Medication Sig Dispensed Refills 10/05/2007 Oxygen-Air Delivery Take 2 L/min 0 Systems Misc Leisa by inhalation daily at bedtime. 10/05/2007 ACCU-CHEK ACTIVE CARE by See Admin 0 Misc Kit Instructions route. 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 03/12/2009 04/12/2009 oxycodone-acetaminophen Take 1 Tab by 90 Tab 0 (PERCOCET) 10-325 mg Oral mouth every 6 Tab hours as needed. 02/26/2009 07/05/2009 potassium chloride Take 1 Tab by 60 Tab 5 (K-DUR) 10 mEq Oral TbTQ mouth 2 times daily. 02/26/2009 04/12/2009 DEPAKOTE 500 mg Oral TbEC Take 1 Tab by 60 Tab 5 mouth 2 times daily. 02/26/2009 07/05/2009 ropinirole [...] as of this encounter ED Notes * Lenore Jane RN - 04/07/2009 12:12 AM GAMBLING CASHIER Pt. Went ama. Pt. Refused to have labs drawn. Pt. Reported to this rn that she d id not have any electricity so she was not able to take her breathing treatments . Doctor alfonso informed the pt. Of the need to contact manager social responsibility. LING CASHIER * Yenny Nowak RN - 04/07/2009 12:09 AM GAMBLING CASHIER Went in to do a CBC and pt ask what it was for and this director underwriter sales explained to her it was a type of blood work and she said no i dont want that done and she left t he ED in a wheelchair same as how she came in to the ED. LING CASHIER * Jim Ramirez MD - 04/07/2009 12:08 AM GAMBLING CASHIER Problem: URI/Bronchitis SUBJECTIVE: Increasing cough and upper airway congestion with associated sore th roat. No fever or respiratory distress. Difficulty resting and activities of d aily life. Recently finished Z alysha. States does not have electricity. OBJECTIVE: VSS, afebrile HENT-Ears with tms retracted. Throat and pharynx erythema. Neck supple. No adenopathy or masses in the neck or supraclavicular regions. Sinuses non-tender. Positive post-nasal drainage. Lungs-Chest is clear, no wheezing or rales. Normal symmetric air entry thro ughout both lung calix. No chest wall deformities or tenderness. CV-S1 and S2 normal, no murmurs, clicks, gallops or rubs. Regular rate and rhythm. Abdomen-The abdomen is soft without tenderness, guarding, mass, rebound or organomegaly. Bowel sounds are normal. No CVA tenderness or inguinal adenopathy noted. Extremities- FROM, no edema, non-tender Skin- clear without rash Neuro- alert, oriented ASSESSMENT: as above PLAN: told she would have to talk with her PCP and manager social responsibility for electrici ty type of help When going into do a CBC.....she decided to leave AMA LING CASHIER * Lenore Jane RN - 04/07/2009 12:06 AM GAMBLING CASHIER Pt. Reports having no electricity. Doctor alfonso with the pt. Orders were kenton nJose Carlos LING CASHIER documented in this encounter Plan of Treatment Not on filedocumented as of this encounter Visit Diagnoses Diagnosis URI (upper respiratory infection) Acute upper respiratory infections of u nspecified site Bronchitis Bronchitis, not specified as acute or c hronic documented in this encounter
--- OUTSIDE RECORDS SUMMARY | 2019-10-21 18:37 | XMS REPORT | Encounter Summary ---
Author Author [facility] Organization [facility] Address Unknown Phone Unavailable Care Team Providers Care Digital Media Producer Name Role Phone PCP Unavailable Encounter Details Care Team Description Date Type Department Maurice Durbin MD [address] [place] [address] 04/16/2009 Anti-coag visit [facility] Primar y Care [place] [address] [place] [address] Social History Date Tobacco Use [...]
--- OUTSIDE RECORDS SUMMARY | 2019-10-21 18:37 | XMS REPORT | Encounter Summary ---
Author Author [facility] Address Unknown Phone Unavailable Care Team Providers Care Topographical Field Assistant Name Role Phone PCP Unavailable Reason for Visit * Auth/Cert Referred By Contact Referred To Contact Status Reason Specialty Diagnoses / Procedures [facility] Emergency [address] [place] [address] Closed Emergency Medicine Encounter Details Care Team Description Date Type Department [facility], Lab Schedule 04/12/2009 [facility] General Encounter Laboratory Services [address] [address] Social History Date Tobacco Use [...] mouth daily XR) 30 mg Oral Cp24 fisher net. adhd 03/12/2009 07/05/2009 albuterol-ipratropium Take 2 Puffs [...] Priority Date/Time Associated Diag nosis PROTIME-INR Routine 04/12/2009 DVT (Deep Venou s 12:00 PM FIELD EDUCATION DIRECTOR Thrombosis) VALPROIC ACID LEVEL, Routine 04/12/2009 Seizure TOTAL 12:00 PM FIELD EDUCATION DIRECTOR URINALYSIS WITH REFLEX Routine 04/12/2009 Hip Lj n CULTURE 11:51 AM FIELD EDUCATION DIRECTOR DRUG SCREEN, URINE Routine 04/12/2009 Hip Pain 11:51 AM FIELD EDUCATION DIRECTOR URINE CULTURE Routine 04/12/2009 11:51 AM FIELD EDUCATION DIRECTOR DRUG CONFIRMATION Routine 04/12/2009 12:01 AM FIELD EDUCATION DIRECTOR documented in this encounter Results * PROTIME-INR (04/12/2009 12:00 PM FIELD EDUCATION DIRECTOR) PROTIME 18.5 (H) 9.5 - 11.5 Sec [facility] AL[facility] INR 1.83 (L)Comment: 2.0 - 3.0 [facility] ACCT#[id number], ,,,, [facility] Specimen Blood specimen (specimen) Performing Organization Address City/State/Zipcode Ph one Number INTERFACE SYSTEM [facility] ALYSA CLIA# [id number] Milly RIOJAS [id number] [facility] [address] [place] [address] * VALPROIC ACID LEVEL, TOTAL (04/12/2009 12:00 PM FIELD EDUCATION DIRECTOR) VALPROIC ACID 43.4 (L)Comment: 50 - 100 ug/ml [facility] ACCT#[id number], ,,,, [facility] Specimen Blood specimen (specimen) Performing Organization Address [facility] Ph one Number INTERFACE SYSTEM [facility] CLIA# [id number] Milly RIOJAS [id number] [facility] [address] [place] [address] * URINE CULTURE (04/12/2009 11:51 AM FIELD EDUCATION DIRECTOR) ORGANISM ESCHERICHIA COLI (A) INTERFACE SYSTEM URINE [...] >=320: Resistant Escherichia coli Comment: CLEMENTE ROBISON ACCT#[id number], ,,,, Performing Organization Address [facility] Ph one Number INTERFACE SYSTEM INTERFACE SYSTEM Refer to clinic/hospital department * DRUG SCREEN, URINE (04/12/2009 11:51 AM FIELD EDUCATION DIRECTOR) AMPHETAMINE Positive [facility] QUAL, URINE CENTER AL[facility]SA [facility] BARBITURATE Negative [facility] QUAL, URINE CENTER ALYSA [facility] BENZODIAZEPINE Negative [facility] QUAL, URINE CENTER [facility] COCAINE METAB Negative [facility] URINE CENTER ALYSA [facility] CANNABINOIDS Negative [facility] QUAL, URINE CENTER ALYSA [facility] METHADONE QUAL, Negative [facility] URINE [place] AL[facility] OPIATE QUAL, Negative [facility] URINE [facility] LAB PCP QUAL, URINE Negative [facility] Comment: [facility] Chain of Custody Handling was [facility] not performed on this specimen. This screen will not meet medical-legal requirements. CUTOFF LIMITS Amphetamines 1000 ng/ml Barbiturates 200 ng/ml Benzodiazepines 200 ng/ml Cocaine metabolite 300 ng/ml Marijuana metabolites 50 ng/ml Methadone 300 ng/ml Opiates 2000 ng/ml PCP 25 ng/ml [facility], INCCLEMENTE STRINGER ACCT#[id number], ,,,, Specimen Urine specimen (specimen) Performing Organization Address City/State/[facility] Ph one Number INTERFACE SYSTEM [facility] ALYSA GERARDO# [id number] Milly RIOJAS S [address] [facility] [address] [facility] * URINALYSIS WITH REFLEX CULTURE (04/12/2009 11:51 AM FIELD EDUCATION DIRECTOR) GLUCOSE UA Negative Negative mg/dl [facility] AL[facility] BILIRUBIN UA Negative Negative [facility] AL[facility] KETONES UA Negative Negative mg/dl [facility] ALYSA [facility] SPECIFIC <=1.005 [facility] GRAVITY UA [place] AL[facility] PH UA 5.0 [facility] AL[facility] PROTEIN UA Negative Negative mg/dl [facility] AL[facility]SA [facility] UROBILINOGEN UA 0.2 0.2 - 1.0 EU/dl [facility] AL[facility] NITRITE UA Negative Negative [facility] AL[facility] BLOOD UA Negative Negative [facility] AL[facility] LEUKOCYTE Trace (H) Negative [facility] ESTERASE UA [place] AL[facility] WBC UA 0-5 0 - 5 /HPF [facility] AL[facility] RBC UA Negative 0 - 5 /HPF [facility] AL[facility] EPITHELIAL occ sq [facility] CELLS, URINE [place] AL[facility] WBC CLUMPS Neg Negative /LPF [facility] CASTS, URINE Neg 0-4 Hyaline /LPF [facility] LAB CRYSTALS, URINE Neg [facility] LAB BACTERIA UA 3+ (H) NEG [facility] LAB COMMENT, URINE 1+ STARCH GRANULES [facility] LAB COMMENT, URINE See Culture Report.Comment: [facility] BRITTON [facility] ACCT#[id number], ,,,, [facility] Specimen Urine, clean catch Performing Organization Address City/State/Zipcode Ph one Number [facility] [id number] ALYSA BRITTONMilly S [address] [facility] [address] [facility] * DRUG CONFIRMATION (04/12/2009 12:01 AM FIELD EDUCATION DIRECTOR) AMPHETAMINE Positive [facility] QUAL, URINE CENTER [facility] AMPHETAMINE Positive [facility] QUAL, URINE CENTER [facility] BARBITURATE Negative [facility], URINE CENTER [facility] BENZODIAZEPINE Negative [facility] QUAL, URINE CENTER [facility] CANNABINOIDS Negative [facility], URINE [facility] LAB METHADONE QUAL, Negative [facility] URINE [facility] LAB METHAQUALONE Negative [facility], URINE CENTER [facility] OPIATE QUAL, Negative [facility] URINE [facility] LAB PCP QUAL, URINE Negative [facility] LAB PROPOXYPHENE Negative [facility], URINE Comment: [facility] THE URINE SPECIMEN WAS TESTED [facility] AT THE CUTOFFS BELOW. PLEASE NOTE: ALL UNITS OF MEASURE ARE NG/ML UNLESS SPECIFICALLY NOTED OTHERWISE. DRUG CLASS INITIAL CONFIRM CONFIRM TEST TEST METHOD CUTOFF CUTOFF AMPHETAMINES 1000 AMPHETAMINE 500 GC/MS METHAMPHETAMINE 500 GC/MS BARBITURATES 300 AMOBARBITAL 200 GC/MS BUTABARBITAL 200 GC/MS BUTALBITAL 200 GC/MS PENTOBARBITAL 200 GC/MS PHENOBARBITAL 200 GC/MS SECOBARBITAL 200 GC/MS BENZODIAZEPINES 300 200 GC/MS COCAINE METABOLITES 300 150 GC/MS MARIJUANA METABOLITES 100 15 GC/MS METHADONE 300 200 GC/MS METHAQUALONE 300 200 GC/MS OPIATES 300 MORPHINE 300 GC/MS CODEINE 300 GC/MS HYDROCODONE 300 GC/MS HYDROMORPHONE 300 GC/MS PHENCYCLIDINE 25 25 GC/MS PROPOXYPHENE 300 200 GC/MS Performed by: [email or web address] [address] [facility] CLEMENTE Pang [id number] [email or web address], ,,,, Specimen Performing Organization Address City/State/Zipcode Ph one Number INTERFACE SYSTEM [facility] ALYSA AKIN# [id number] Milly RIOJAS [address] [facility] [address] [facility] documented in this encounter Visit Diagnoses Diagnosis Seizure Other convulsions Hip pain Pain in joint, pelvic region and thigh DVT (deep venous thrombosis) Acute venous embolism and thrombosis of unspecified deep vessels of lower extremity documented in this encounter
--- OUTSIDE RECORDS SUMMARY | 2019-10-21 18:37 | XMS REPORT | Encounter Summary ---
Author Author [facility] Organization [facility] Address Unknown Phone Unavailable Care Team Providers Care Event Lighting Specialist Name Role Phone PCP Unavailable Reason for Visit * Reason Comments Cough Pt to er with cc of cough, headache, rib and back pain x 2 days. 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 adhd 03/12/2009 07/05/2009 albuterol-ipratropium Take 2 Puffs [...] Notes * Aok Scanning, Ari Physician - 04/13/2009 10:46 AM DIESEL SERVICE APPRENTICE * Aok Scanning, Ari Physician - 04/05/2009 2:12 PM DIESEL SERVICE APPRENTICE * Ruel Gray RN - 04/02/2009 12:55 PM CDT Pt triaged in registration area. Pt aware of a full and busy er and she will be seen mary. documented in this encounter Plan of Treatment Not on filedocumented as of this encounter Visit Diagnoses Not on filedocumented in this encounter Administered Medications Action Date Dose Rate Site Medication Order MAR Action 04/02/2009 2:54 PM CDT 25 mg Arm, Rig ht promethazine (PHENERGAN) injection 50 mg Given 50 mg, IM, ONE TIME ONLY, 1 dose, Sun04/02/09 at 1445, Routine documented in this encounter
--- OUTSIDE RECORDS SUMMARY | 2019-10-21 18:37 | XMS REPORT | Encounter Summary ---
Author Author [facility] Organization [facility] Address Unknown Phone Unavailable Care Team Providers Care Crib Attendant Name Role Phone PCP Unavailable Reason for Visit * Reason Comments Medication Refill Encounter Details Care Team Description Date Type Department Maurice Durbin MD [address] [place] [address] 03/29/2009 Refill [facility] Primar y Care [place] [address] [place] [address] Social History Date Tobacco Use [...]
--- OUTSIDE RECORDS SUMMARY | 2019-10-21 18:38 | XMS REPORT | Encounter Summary ---
Author Author [facility] Organization [facility] Address Unknown Phone Unavailable Care Team Providers Care Engineering Design Supervisor Name Role Phone PCP Unavailable Reason for Visit * Reason Comments Medication Refill Encounter Details Care Team Description Date Type Department Maurice Durbin MD [address] [place] [address] 03/25/2009 Refill [facility] Primar y Care [place] [address] [place] [address] Social History Date Tobacco Use [...]
--- OUTSIDE RECORDS SUMMARY | 2019-10-21 18:38 | XMS REPORT | Encounter Summary ---
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 female. HPI Chief Complaint Patient presents with Leg Swelling pt says that she cant get her legs and ankles to stop swellling Itching pt says she is itching from head to toe and the benadryl is not working ER Follow Up pt said she went to ER for staph in stomach and would like dr to look at it REVIEW OF SYSTEMS Review of Systems Constitutional: Positive for fever. HENT: Negative for ear pain and nosebleeds. Eyes: Negative for blurred vision and double vision. Respiratory: Negative for cough, hemoptysis, sputum production and shortness of breath. Cardiovascular: Negative for chest pain, palpitations and orthopnea. Gastrointestinal: Negative for heartburn, nausea, vomiting and abdominal pain. Genitourinary: Negative for dysuria, urgency and frequency. Musculoskeletal: Negative for myalgias. Skin: Positive for rash. Neurological: Negative for dizziness, tingling, tremors and headaches. Endo/Heme/Allergies: Does not bruise/bleed easily. Psychiatric/Behavioral: Negative for depression. PHYSICAL EXAM BP 104/60 | Pulse 94 | Temp(Src) 98.3 F (36.8 C) (Tympanic) | LMP Hysterecto my Physical Exam Cardiovascular: Normal rate, regular rhythm, normal heart sounds and intact dist al pulses. Pulmonary/Chest: Effort normal and breath sounds normal. Abdominal: Soft. Bowel sounds are normal. ASSESSMENT and PLAN: Encounter Diagnoses Code Name Primary? Qualifier 250.00 DM w/o Complication Type II 698.9D Itch Plan: METHYLPREDNISOLONE 80 MG/ML INJECTION, DEXAMETHASONE SODIUM PHOSPHATE 4 M G/ML INJECTION Orders Placed This Encounter Methylprednisolone 80 mg/ml injection Dexamethasone sodium phosphate 4 mg/ml injection Topiramate 100 mg tab Methylprednisolone acetate 80 mg/ml susp for injection Dexamethasone 4 mg/ml injection documented in this encounter Plan of Treatment Not on filedocumented as of this encounter Visit Diagnoses Diagnosis Type II or unspecified type diabetes me llitus without mention of complication, not stated as uncontrolled Itch Unspecified pruritic disorder documented in this encounter"
--- OUTSIDE RECORDS SUMMARY | 2019-10-21 18:38 | XMS REPORT | Encounter Summary ---
Author Author [facility] Organization [facility] Address Unknown Phone Unavailable Care Team Providers Care Captain Cannery Tender Name Role Phone PCP Unavailable Reason for Referral * Consult, Test & Treat (Routine) Referred By Contact Referred To Contact Status Reason Specialty Diagnoses / Procedures Maurice Durbin MD [address] [place] [phone] Homar Christian MD [address] [place] [phone] Closed Diagnoses Increased frequency of urination * Consult, Test & Treat (Routine) Referred By Contact Referred To Contact Status Reason Specialty Diagnoses / Procedures Maurice Durbin MD [address] [place] [phone] Turner Cabral DO [address] [place] [address] Closed Diagnoses Rectal bleeding Reason for Visit * Reason Comments Constipation She said she has a hard karissa e to have bowel movement Rectal Bleeding pt said that she went to ER for rectal bleeding, was told to get a colonscopy from ER, she said her father had colon cancer Medication Refill colace Shaking pt says her hands shake Encounter Details Care Team Description Date Type Department Maurice Durbin MD [address] [place] [phone] Rectal Bleeding (Primary Dx); Increased Frequency of Urination; Zeenat 03/26/2009 Office Visit [address] [place] [address] Social History Date Tobacco Use [...] Signs Reading Time Taken Comments Vital Sign 110/80 03/26/2009 3:29 PM CDT Blood Pressure 90 03/26/2009 3:29 PM CDT Pulse 37.5 C (99.5 F) 03/26/2009 3:29 PM CDT Temperature - - Respiratory Rate - - Oxygen Saturation - - Inhaled Oxygen Concentration - - Weight - - Height - - Body Mass Index documented in this encounter Progress Notes * Maurice Durbin MD - 03/28/2009 9:44 AM CDT HISTORY OF PRESENT ILLNESS Ayden Odom, a 38 y.o. female. HPI Chief Complaint Patient presents with Constipation She said she has a hard time to have bowel movement Rectal Bleeding pt said that she went to ER for rectal bleeding, was told to get a colonscopy from ER, she said her father had colon cancer Medication Refill colace Shaking pt says her hands shake REVIEW OF SYSTEMS Review of Systems Constitutional: Negative for fever. HENT: Negative for ear pain and nosebleeds. Eyes: Negative for blurred vision and double vision. Respiratory: Negative for cough, hemoptysis, sputum production and shortness of breath. Cardiovascular: Negative for chest pain, palpitations and orthopnea. Gastrointestinal: Positive for nausea, constipation and blood in stool. Negative for heartburn, vomiting and abdominal pain. Genitourinary: Negative for dysuria, urgency and frequency. Musculoskeletal: Negative for myalgias. Skin: Negative for rash. Neurological: Positive for tingling. Negative for dizziness, tremors and headach es. Endo/Heme/Allergies: Does not bruise/bleed easily. Psychiatric/Behavioral: Negative for depression. PHYSICAL EXAM BP 110/80 | Pulse 90 | Temp(Src) 99.5 F (37.5 C) (Tympanic) | LMP Hysterecto my Physical Exam Constitutional: She appears well-developed and well-nourished. Cardiovascular: Normal rate, regular rhythm, normal heart sounds and intact dist al pulses. Pulmonary/Chest: Effort normal and breath sounds normal. Abdominal: Soft. Bowel sounds are normal. ASSESSMENT and PLAN: Encounter Diagnoses Code Name Primary? Qualifier 569.3Q Rectal Bleeding Yes Plan: AMB REFERRAL TO GENERAL SURGERY 788.41N Increased Frequency of Urination Plan: AMB REFERRAL TO UROLOGY 781.0Y Shakes Orders Placed This Encounter Amb referral to general surgery Amb referral to urology Polyethylene glycol 3350 17 gram/dose oral powder Lorazepam 1 mg tab documented in this encounter Plan of Treatment Order Schedule Name Type Priority Associated Diag noses Ordered: 03/26/2009 AMB REFERRAL TO GENERAL Outpatient Routine Rectal Bleeding SURGERY Referral Ordered: 03/26/2009 AMB REFERRAL TO UROLOGY Outpatient Routine Increa sed Frequency of Referral Urination documented as of this encounter Visit Diagnoses Diagnosis Rectal bleeding - Primary Hemorrhage of rectum and anus Increased frequency of urination Urinary frequency Shakes Abnormal involuntary movements documented in this encounter"
--- OUTSIDE RECORDS SUMMARY | 2019-10-21 18:38 | XMS REPORT | Encounter Summary ---
Author Author [facility] Organization [facility] Address Unknown Phone Unavailable Care Team Providers Care Reeling Machine Operator Name Role Phone PCP Unavailable Reason for Visit * Reason Comments Migraine pt said that migraine start ed 3 days ago Nausea Medication Refill pt is requesting medication script on phenergren and treximet and oxycodone Encounter Details Care Team Description Date Type Department Maurice Durbin MD [address] [place] [address] Migraine (Primary Dx) 03/12/2009 Office Visit [facility] Primar y Care [place] [address] [place] [address] Social History Date Tobacco Use [...] Reading Time Taken Comments Vital Sign 110/70 03/12/2009 2:28 PM CDT Blood Pressure 84 03/12/2009 2:28 PM CDT Pulse 37 C (98.6 F) 03/12/2009 2:28 PM CDT Temperature - - Respiratory Rate - - Oxygen Saturation - - Inhaled Oxygen Concentration - - Weight - - Height - - Body Mass Index documented in this encounter Progress Notes * Maurice Durbin MD - 03/17/2009 9:24 PM CDT SUBJECTIVE: Ayden Odom is a 38 y.o. female who complains of migraine headache for 2 day(s). She has a well established history of recurrent migraines. Description of pain: throbbing pain, squeezing pain, bilateral in the frontal ar ea. Associated symptoms: aura, congestion, facial pain, flashing lights and light se nsitivity. Patient has already taken Narcotics for it for this headache without relief. R an out of the treximet Current outpatient prescriptions Medication Sig Dispense Refill lorazepam (ATIVAN) 1 mg Oral Tab Take 1 Tab by mouth every 12 hours as neede d for Other (See Comment). anxiety 60 Tab 2 albuterol-ipratropium (COMBIVENT) 103-18 mcg/Actuation Inhalation [...] mouth 2 times daily. 60 Tab 5 oxycodone CR (OXYCONTIN) 60 mg Oral Tb12 Take 1 Tab by mouth every 12 hours. 60 Tab 0 potassium chloride (K-DUR) 10 mEq [...] mouth daily at bedtime. 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 30 Tab 5 zolpidem (AMBIEN) 10 mg Oral Tab Take 1 Tab by mouth nightly as needed for I nsomnia. 30 Tab 2 BACLOFEN 10 mg Oral Tab Take 10 [...] IN Take by inhalation every 6 hours. There are no associated abnormal neurological symptoms such as TIA's, loss of ba nancie, loss of vision or speech, numbness or weakness on review. Past neurologic al history: negative for stroke, MS, epilepsy, or brain tumor. OBJECTIVE: Patient appears in pain, preferring to lie in a darkened room. Her vitals are no rmal. Alert and oriented x 3. Ears and throat normal. Neck fully supple without nodes . Sinuses non tender. Cranial nerves are normal. Fundi are normal with sharp di sc margins, no papilledema, hemorrhages or exudates noted. DTR's normal and symm etric. Babinski sign absent. Mental status normal. Cerebellar function normal. ASSESSMENT: Migraine headache PLAN: Treatment today - see orders as documented in the electronic medical record. ROV prn if pain does not resolve after treatment. documented in this encounter Plan of Treatment Not on filedocumented as of this encounter Visit Diagnoses Diagnosis Migraine - Primary Migraine, unspecified, without mention of intractable migraine without mention of status migrainosus documented in this encounter
--- OUTSIDE RECORDS SUMMARY | 2019-10-21 18:38 | XMS REPORT | Encounter Summary ---
Author Author [facility] Organization [facility] Address Unknown Phone Unavailable Care Team Providers Care Textile Screen Maker Name Role Phone PCP Unavailable Encounter Details Care Team Description Date Type Department Maurice Durbin MD [address] [place] [address] 03/25/2009 Anti-coag visit [facility] Primar y Care [place] [address] [place] [address] Social History Date Tobacco Use [...] of this encounter Progress Notes * Patt Malik - 03/25/2009 6:06 PM CDT Talked to , Saturnino, let him know that Dr Durbin wants Ayden to go to 5 mg daily and recheck in 1 week. documented in this encounter Plan of Treatment Not on filedocumented as of this encounter Visit Diagnoses Not on filedocumented in this encounter
--- OUTSIDE RECORDS SUMMARY | 2019-10-21 18:38 | XMS REPORT | Encounter Summary ---
Author Author [facility] Organization [facility] Address Unknown Phone Unavailable Care Team Providers Care Fishery Division Chief Name Role Phone PCP Unavailable Reason for Visit * Reason Comments Rectal Bleeding started today at noon, brig ht red, increased amount with bowel movement, otherwise some blood on tissue paper Abdominal Pain cramping - stools are a mix ture of diarrhea and formed stool bm x 3-4 times today Encounter Details Care Team Description Date Type Department Kaye Chandra MD [address] [place] [address] [phone] Rectal Bleeding 03/22/2009 Emergency [facility] Emergency Department [address] [address] Social History Date Tobacco Use [...] Signs Reading Time Taken Comments Vital Sign 107/62 03/22/2009 7:49 PM CDT Blood Pressure 87 03/22/2009 7:49 PM CDT Pulse 36.4 C (97.6 F) 03/22/2009 6:28 PM CDT Temperature 14 03/22/2009 7:49 PM CDT Respiratory Rate 98% 03/22/2009 7:49 PM CDT Oxygen Saturation - - Inhaled Oxygen Concentration 133.8 kg (295 lb) 03/22/2009 6:28 PM CDT Weight 160 cm (5' 3") 03/22/2009 6:28 PM CDT Height 52.26 03/22/2009 6:28 PM CDT Body Mass Index documented in this encounter Discharge Instructions * Instructions* Kaye Chandra MD - 03/22/2009 Hold coumadin for next two doses Recheck INR 03/24/09 Follow up with PCP for coumadin management Schedule appt. With surgery for repeat scope Return if increasing bleeding documented in this encounter Medications at Time of Discharge Start Date End Date Medication Sig Dispensed Refills 10/05/2007 Oxygen-Air Delivery Take 2 L/min 0 Systems Misc Leisa by inhalation daily at bedtime. 10/05/2007 ACCU-CHEK ACTIVE CARE by See Admin 0 Misc Kit Instructions route. Before meals, at bedtime, and as needed 03/12/2009 03/26/2009 lorazepam (ATIVAN) 1 mg Take 1 Tab by 60 Tab 2 Oral Tab mouth every 12 hours as needed for Other (See Comment). anxiety 03/12/2009 07/05/2009 albuterol-ipratropium Take 2 Puffs 1 Inhaler 5 (COMBIVENT) 103-18 by inhalation mcg/Actuation Inhalation every 6 Aero hours. 03/12/2009 04/12/2009 oxycodone-acetaminophen Take 1 Tab by 90 Tab 0 (PERCOCET) 10-325 mg Oral mouth every 6 Tab hours as needed. 02/26/2009 03/25/2009 oxycodone CR (OXYCONTIN) Take 1 Tab by 60 Tab 0 60 mg Oral Tb12 mouth every 12 hours. 02/26/2009 07/05/2009 potassium chloride Take 1 [...] 5 Oral Tab mouth daily at bedtime. 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 11/27/2008 03/29/2009 zolpidem (AMBIEN) 10 mg Take 1 Tab by 30 Tab 2 Oral Tab mouth nightly as needed for Insomnia. 10/12/2008 07/05/2009 duloxetine (CYMBALTA) 30 Take 1 [...] this encounter ED Notes * Ari Stanley - 03/23/2009 9:50 AM CDT * Arnoldo Pearl RN - 03/22/2009 8:[address] Chandra back to room to discuss test results. * Arnoldo Pearl RN - 03/22/2009 7:53 PM CDT Lab phoned with critical high values PT 48.[address] Chandra not ified. * Kaye Chandra MD - 03/22/2009 7:24 PM CDT HISTORY OF PRESENT ILLNESS Ayden Odom, a 38 y.o. female presents to the ED with a Chief Complaint o f Rectal Bleeding and Abdominal Pain HPI Comments: Several episodes rectal bleeding with diarrhea today. BRB on stoo l and tissue. Cramping abdominal pain, no nausea. Had endoscopy and colonoscop y 09/09 with 3 small polyps. Has IBS, no fevers. Patient is a 38 y.o. female presenting with hematochezia and abdominal pain. The history is provided by the patient. Rectal Bleeding The history is provided by the patient. The current episode started today. The o nset was sudden. The problem occurs intermittently. The problem has not changed since onset. The pain is mild. The stool is described as liquid. Associated symp toms include abdominal pain, diarrhea and headaches. Pertinent negatives include no fever, no nausea, no rectal pain, no vomiting, no chest pain, no cough and no rash. Her past medical history does not include recent antibiotic use, recent illness or recent change in diet. IBS Abdominal Pain This is a new problem. The current episode started 12 to 24 hours ago. The probl em has not changed since onset. Associated With: bowel movements. The pain is lo cated in the generalized abdominal region. The quality of the pain is cramping. The pain is at a severity of 2/10. Associated symptoms include diarrhea, hematoc hezia and headaches. Pertinent negatives include no fever, no nausea, no vomitin g and no dysuria. Past workup includes GI consult. Her past medical history is s ignificant for irritable bowel syndrome. IBS REVIEW OF SYSTEMS Review of Systems Constitutional: Negative for fever, chills, weight loss and malaise/fatigue. HENT: Negative for sore throat. Respiratory: Negative for cough and shortness of breath. Cardiovascular: Negative for chest pain. Gastrointestinal: Positive for abdominal pain, diarrhea, blood in stool and nahun tochezia. Negative for nausea, vomiting and rectal pain. Genitourinary: Negative for dysuria. Skin: Negative for rash. Neurological: Positive for headaches. Endo/Heme/Allergies: Does not bruise/bleed easily. PAST MEDICAL HISTORY REVIEWED Past Medical History [...] Aloe vera, Tape and Doxycycline HOME MEDICATIONS amitriptyline (ELAVIL) 50 mg Oral Tab Take 1 Tab by mouth daily at bedtime. lorazepam (ATIVAN) 1 mg Oral Tab Take 1 Tab by mouth every 12 hours as neede d for Other (See Comment). anxiety albuterol-ipratropium (COMBIVENT) 103-18 mcg/Actuation Inhalation Aero Take 2 Puffs by inhalation every 6 hours. oxycodone-acetaminophen (PERCOCET) 10-325 mg Oral Tab Take 1 Tab by mouth ev ana lilia 6 hours as needed. Sumatriptan-Naproxen (TREXIMET) 85-500 mg Oral tablet Take 1 Tab by mouth on e time as needed for Migraine for 1 dose. May repeat dose once after 2 hr; MAX 2 tablets in 24 hr topiramate (TOPAMAX) 100 mg Oral Tab Take 1 Tab by mouth 2 times daily. oxycodone CR (OXYCONTIN) 60 mg Oral Tb12 Take 1 Tab by mouth every 12 hours. potassium chloride (K-DUR) 10 mEq Oral TbTQ Take 1 Tab by mouth 2 times celestino y. atorvastatin (LIPITOR) 80 mg Oral Tab Take 0.5 Tabs by mouth Daily LATE. DEPAKOTE 500 mg Oral TbEC Take 1 Tab by mouth 2 times daily. ropinirole (REQUIP) 1 mg Oral Tab Take 1 Tab by mouth daily at bedtime. olanzapine (ZYPREXA) 5 mg Oral Tab Take 1 Tab by mouth daily at bedtime. 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 ranitidine HCl (ZANTAC) 150 mg Oral Cap [...] 2 L/min by inhalation daily at [facility]. ACCU-CHEK ACTIVE CARE Misc Kit by See Admin Instructions route. Before meals , at bedtime, and as needed LOVAZA 1 gram Oral Cap Take 1 Gram by mouth 3 times daily. BACLOFEN 10 mg Oral Tab Take 10 mg by mouth 3 times daily as needed for Pain . DUONEB IN Take by inhalation every 6 hours. PHYSICAL EXAM Initial Vitals BP 03/22/09 1828 118/61 mmHg Pulse 03/22/09 1828 94 Resp 03/22/09 1828 16 Temp 03/22/09 1828 97.6 F (36.4 C) Temp src 03/22/09 1828 Oral SpO2 03/22/09 1828 97 % Physical Exam Constitutional: She is [...] No respiratory distress . She has no rales. She exhibits no tenderness. Abdominal: Soft. Bowel sounds are normal. She exhibits no distension and no mass . Tenderness is present. She has no rebound and no guarding. No rectal fissures or hemorrhoids, postive hemocult, no obvious bright red blood on glove Musculoskeletal: Normal range of motion. Lymphadenopathy: She has no cervical adenopathy. Neurological: She is alert and oriented. Skin: Skin is warm and dry. Psychiatric: She has a normal mood and affect. MDM Coding Reviewed: previous chart, nursing note and vitals Interpretation: labs DIAGNOSTICS LAB: Results for orders placed during the hospital encounter of 03/22/2009 (from the past 24 hour(s)) CBC WITH DIFFERENTIAL Component Value Range WBC 9.64 3.0-10.4 (x10E3) RBC 4.03 3.77-4.97 (x10E6) HEMOGLOBIN 12.7 11.9-15.0 (g/dL) HEMATOCRIT 37.5 34.4-43.6 (%) MCV 93.1 79-100 (fL) MCH 31.4 28-34 (pg) MCHC 33.8 33-36 (g/dL) RDW 13.9 11.5-15.1 (%) PLATELETS 227 148-408 (x10E3) MPV 7.9 7.4-10.6 (fL) NEUTROPHILS 68.2 43-73 (%) LYMPHOCYTES 23.7 19-47 (%) MONOCYTES 5.0 3-9 (%) EOSINOPHILS 3.0 0-6 (%) BASOPHILS 0.2 0-1.2 (%) NEUTROPHIL ABSOLUTE 6.58 1.3-7.6 (x10E3) LYMPHOCYTE ABSOLUTE 2.28 0.6-4.9 (x10E3) MONOCYTE ABSOLUTE 0.48 0.1-0.9 (x10E3) EOSINOPHIL ABSOLUTE 0.29 (*) 0.0-0.2 (x10E3) BASOPHILS ABSOLUTE 0.02 0-0.1 (x10E3) PROTIME-INR Component Value Range PROTIME 48.4 (*) 9.5-11.5 (Sec) INR 5.13 (*) 2.0-3.0 OCCULT BLOOD, STOOL Component Value Range OCCULT BLOOD #1 Positive - RADIOLOGY: EKG: PROCEDURES MEDICAL DECISION MAKING AND PLAN OF CARE Last vitals BP 107/62 | Pulse 87 | Temp(Src) 97.6 F (36.4 C) (Oral) | Resp 14 | Ht 5' 3" (1.6 m) | Wt 133.811 kg | SpO2 98% | LMP Hysterectomy CLINICAL IMPRESSION Encounter Diagnoses Code Name Primary? 569.3Q Rectal Bleeding CASE DISCUSSED Pt. To hold coumadin for 2 doses and recheck in 2 days INR. Schedule follow up appt. With surgery to discuss scope. PATIENT COUNSELING Diagnostics reviewed and questions answered. Diagnosis, treatment options and p radha of care discussed with understanding verbalized. DISPOSITION, EDUCATION AND MEDICATION RECONCILIATION Medications reconciled. See after visit summary for patient education on discha rged patients. * Arnoldo Pearl, RN - 03/22/2009 6:[address] Chandra to room at this time. documented in this encounter Plan of Treatment Not on filedocumented as of this encounter Procedures Comments Procedure Name Priority Date/Time Associated Diag nosis CBC WITH DIFFERENTIAL Stat 03/22/2009 7:18 PM CDT PROTIME-INR Stat 03/22/2009 7:18 PM CDT OCCULT BLOOD GUAIAC Stat 03/22/2009 DIAGNOSTIC 6:50 PM CDT documented in this encounter Results * PROTIME-INR (03/22/2009 7:18 PM CDT) PROTIME 48.4 (H) 9.5 - 11.5 Sec [facility] INR 5.13 (HH) 2.0 - 3.0 [facility] Comment: [place] [facility] Called to: ARNOLDO LUA Test results read back. Called by: Jaron Bee 03/22/091952 [facility] ACCT#[id number], ,,,, Specimen Blood specimen (specimen) Performing Organization Address City/State/Zipcode Ph one Number INTERFACE SYSTEM [facility] CLIA# [id number] Milly RIOJAS [address] [address] [place] [address] * CBC WITH DIFFERENTIAL (03/22/2009 7:18 PM CDT) Pathologist [facility] WBC 9.64 3.0 - 10.4 x10E3 [facility] RBC 4.03 3.77 - 4.97 x10E6 [facility] HEMOGLOBIN 12.7 11.9 - 15.0 g/dL [facility] HEMATOCRIT 37.5 34.4 - 43.6 % [facility] MCV 93.1 79 - 100 fL [facility] MCH 31.4 28 - 34 pg [facility] MCHC 33.8 33 - 36 g/dL [facility] RDW 13.9 11.5 - 15.1 % [facility] PLATELETS 227 148 - 408 x10E3 [facility] MPV 7.9 7.4 - 10.6 fL [facility] NEUTROPHILS 68.2 43 - 73 % [facility] LYMPHOCYTES 23.7 19 - 47 % [facility] MONOCYTES 5.0 3 - 9 % [facility] EOSINOPHILS 3.0 0 - 6 % [facility] BASOPHILS 0.2 0 - 1.2 % [facility] NEUTROPHIL 6.58 1.3 - 7.6 x10E3 [facility] REBA [facility] LYMPHOCYTE 2.28 0.6 - 4.9 x10E3 [facility] MONOCYTE 0.48 0.1 - 0.9 x10E3 [facility] LAB EOSINOPHIL 0.29 (H) 0.0 - 0.2 x10E3 [facility] LAB BASOPHILS 0.02Comment: [facility] 0 - 0.1 x10E3 [facility] ACCT#[id number], ,,,, CENTER [facility] Specimen Blood specimen (specimen) Performing Organization Address City/State/Zipcode Ph one Number INTERFACE SYSTEM [facility] [place] CLIA# [id number] Milly RIOJAS [address] [facility] [address] [facility] * OCCULT BLOOD, STOOL (03/22/2009 6:50 PM CDT) OCCULT BLOOD #1 PositiveComment: [facility][id number], ,,,, [facility] Specimen Stool specimen (specimen) Performing Organization Address City/State/Zipcode Ph one Number INTERFACE SYSTEM [facility]# [id number] Milly RIOJAS [address] [facility] [address] [facility] documented in this encounter Visit Diagnoses Diagnosis Rectal bleeding Hemorrhage of rectum and anus documented in this encounter
--- OUTSIDE RECORDS SUMMARY | 2019-10-21 18:38 | XMS REPORT | Encounter Summary ---
Author Author [facility] Organization [facility] Address Unknown Phone Unavailable Care Team Providers Care Galvanizer Zinc Name Role Phone PCP Unavailable Encounter Details Care Team Description Date Type Department Maurice Durbin MD [address] [place] [address] 03/23/2009 Abstract [facility] Primar y Care [place] [address] [place] [address] Social History Date Tobacco Use [...]
--- OUTSIDE RECORDS SUMMARY | 2019-10-21 18:38 | XMS REPORT | Encounter Summary ---
Author Author [facility] Organization [facility] Address Unknown Phone Unavailable Care Team Providers Care Intelligence Analyst Name Role Phone PCP Unavailable Reason for Visit * Reason Comments Back Pain Dizziness Sore pt would like to have dr gabriela gotti at sore on stomach Encounter Details Care Team Description Date Type Department Maurice Durbin MD [address] [place] [address] Insomnia; Back Pain 03/18/2009 Office Visit [facility] Primar y Care [place] [address] [place] [address] Social History Date Tobacco Use [...] Reading Time Taken Comments Vital Sign 92/60 03/18/2009 2:57 PM CDT Blood Pressure 102 03/18/2009 2:57 PM CDT Pulse 36.7 C (98 F) 03/18/2009 2:57 PM CDT Temperature - - Respiratory Rate - - Oxygen Saturation - - Inhaled Oxygen Concentration - - Weight - - Height - - Body Mass Index documented in this encounter Progress Notes * Maurice Durbin MD - 03/18/2009 2:57 PM CDT HISTORY OF PRESENT ILLNESS Ayden Odom, a 38 y.o. female. Back Pain The current episode started more than 2 days ago. The problem occurs constantly. The pain is associated with no known injury. The pain is present in the lumbar spine. The pain quality is described as stabbing and aching. The pain radiates t o the right thigh. The pain is at a severity of 9/10. The symptoms are worsened by twisting and bending. The pain is the same all the time. Pertinent negatives include no chest pain, no fever, no headaches, no abdominal pain, no dysuria and no tingling. The treatment provided no relief. REVIEW OF [...] Negative for dysuria, urgency and frequency. Musculoskeletal: Positive for back pain. Negative for myalgias. Skin: Negative for rash. Neurological: Negative for dizziness, tingling, tremors and headaches. Endo/Heme/Allergies: Does not bruise/bleed easily. Psychiatric/Behavioral: Negative for depression. PHYSICAL EXAM BP 92/60 | Pulse 102 | Temp(Src) 98 F (36.7 C) (Tympanic) | LMP Hysterectomy Physical Exam Cardiovascular: Normal rate, regular rhythm, normal heart sounds and intact dist al pulses. Pulmonary/Chest: Effort normal and breath sounds normal. Abdominal: Soft. Bowel sounds are normal. ASSESSMENT and PLAN: Encounter Diagnoses Code Name Primary? Qualifier 780.52A Insomnia 724.5E Back Pain Orders Placed This Encounter Amitriptyline 50 mg tab Restart the eleavil documented in this encounter Plan of Treatment Not on filedocumented as of this encounter Visit Diagnoses Diagnosis Insomnia Insomnia, unspecified Back pain Backache, unspecified documented in this encounter"
--- OUTSIDE RECORDS SUMMARY | 2019-10-21 18:38 | XMS REPORT | Encounter Summary ---
Author Author [facility] Organization [facility] Address Unknown Phone Unavailable Care Team Providers Care Senior Tax Manager Name Role Phone PCP Unavailable Reason for Visit * Reason Comments Shortness of Breath pt says she is always sob a nd is wheezing, she has no o2 due to electricity. Encounter Details Care Team Description Date Type Department Maurice Durbin MD [address] [place] [address] DM w/o Complication Type II; COPD 03/03/2009 Office Visit [facility] Primar y Care [place] [address] [place] [address] Social History Date Tobacco Use [...] Reading Time Taken Comments Vital Sign 108/74 03/03/2009 2:04 PM CDT Blood Pressure 72 03/03/2009 2:04 PM CDT Pulse - - Temperature - - Respiratory Rate - - Oxygen Saturation - - Inhaled Oxygen Concentration 142 kg (313 lb) 03/03/2009 2:04 PM CDT Weight - - Height 55.45 01/07/2009 9:53 PM CDT Body Mass Index documented in this encounter Progress Notes * Maurice Durbin MD - 03/03/2009 3:55 PM CDT SUBJECTIVE: Ayden Odom is a 38 y.o. female seen urgently with exacerbation of copd f or 3 days. Wheezing is described as mild. Associated symptoms:coryza, congestion and sneezing. Has not been able to do the oxygen at night secondary to having h er electricity turned off. Patient admits to smoke cigarettes. OBJECTIVE: The patient appears alert, well appearing, and in no distress. ENT: ENT exam normal, no neck nodes or sinus tenderness CHEST:wheezing noted mild at the bases ASSESSMENT: Encounter Diagnoses Name Primary? DM w/o Complication Type II COPD PLAN: Continue inhalers and letter is given to the patient documented in this encounter Plan of Treatment Not on filedocumented as of this encounter Visit Diagnoses Diagnosis Type II or unspecified type diabetes me llitus without mention of complication, not stated as uncontrolled COPD Chronic airway obstruction, not elsewhe re classified documented in this encounter
--- OUTSIDE RECORDS SUMMARY | 2019-10-21 18:38 | XMS REPORT | Encounter Summary ---
Author Author [facility] Organization [facility] Address Unknown Phone Unavailable Care Team Providers Care Cleaner Window Name Role Phone PCP Unavailable Reason for Visit * Reason Comments Medication Refill Encounter Details Care Team Description Date Type Department Teresa Stewart 03/11/2009 Refill [facility] Primar y Care [address] [phone] Social History Date Tobacco Use Types Packs/Day [...]
--- OUTSIDE RECORDS SUMMARY | 2019-10-21 18:38 | XMS REPORT | Encounter Summary ---
Author Author [facility] Organization [facility] Address Unknown Phone Unavailable Care Team Providers Care Physical Sciences Professor Name Role Phone PCP Unavailable Reason for Visit * Reason Comments Medication Refill Pharmacy called saying that Dr. Durbin accidently ordered Qty 6 on this medication and it should be 9. I asked Canales and he okayed a revised prescription for 9. Encounter Details Care Team Description Date Type Department Saturnino Canales MD NO ADDRESS ON FILE 03/12/[address] [address] Social History Date Tobacco [...]
--- OUTSIDE RECORDS SUMMARY | 2019-10-21 18:38 | XMS REPORT | Encounter Summary ---
Author Author [facility] Organization [facility] Address Unknown Phone Unavailable Care Team Providers Care Termite Exterminator Helper Name Role Phone PCP Unavailable Reason for Visit * Reason Comments Medication Refill Encounter Details Care Team Description Date Type Department Maurice Mayer MD [address] [place] [address] 03/12/2009 Refill [facility] Primar y Care [place] [address] [place] [address] Social History Date Tobacco Use [...] encounter Miscellaneous Notes * Telephone Encounter - Sofia Krishnamurthy - 03/12/2009 2:15 PM CDT Four refills for pt were refilled per dr mayer documented in this encounter Plan of Treatment Not on filedocumented as of this encounter Visit Diagnoses Not on filedocumented in this encounter
--- OUTSIDE RECORDS SUMMARY | 2019-10-21 18:38 | XMS REPORT | Encounter Summary ---
Author Author [facility] Organization [facility] Address Unknown Phone Unavailable Care Team Providers Care Roving Hand Name Role Phone PCP Unavailable Reason for Visit * Reason Comments Follow Up F/U Lt Shoulder & Back Pain Encounter Details Care Team Description Date Type Department Robby Rajan, PIE DOUGH ROLLER [address] [place] [phone] Back Pain (Primary Dx) 03/10/2009 Office Visit [facility] [address] [phone] Social History Date Tobacco Use Types Packs/Day [...] as of this encounter Progress Notes * Robby Rajan, STORE HAND - 03/11/2009 1:04 PM CDT [facility] * OFFICE NOTES * [place], [place] [address] JERALD VELAZQUEZ JAUN [id number] 03/10/09 SUBJECTIVE: Seen for follow up evaluation of her low back pain. She states that she continu es to have some low back pain. She denies any radicular pain. No numbness, tingl ing or weakness. EXAMINATION: Her power is grade V, L2-S1. She sits comfortably in a wheelchair in the office today. Neurovascular status is intact. Lymphatics otherwise negative. ASSESSMENT: Lumbosacral sprain. Obesity. Low back pain. PLAN: I have recommended indefinitely protective weightbearing with her [place] Can adian crutches. Naproxen 500 mg one p.o. b.i.d. with food, p.r.n. A stretching a nd strengthening program. Weight reduction. See her sooner, p.r.n. Warning signs were discussed neurologic compromise, she will call if they should occur. Dictated by: DENNY Huber/MANNY/DANELLE 03/11/09 [facility] OFFICE NOTES # [phone] * Robby Rajan ARNP - 03/10/2009 2:37 PM CDT This office note has been dictated. documented in this encounter Plan of Treatment Not on filedocumented as of this encounter Visit Diagnoses Diagnosis Back pain - Primary Backache, unspecified documented in this encounter
--- OUTSIDE RECORDS SUMMARY | 2019-10-21 18:38 | XMS REPORT | Encounter Summary ---
Author Author [facility] Organization [facility] Address Unknown Phone Unavailable Care Team Providers Care Cisco Certified Network Professional Name Role Phone PCP Unavailable Reason for Visit * Reason Comments Medication Refill Patient came in to say that [facility] closed and needed to get his prescription tonight, so he [facility] me t o [facility]. Encounter Details Care Team Description Date Type Department Saturnino Canales MD NO ADDRESS ON FILE 03/12/[address] [facility] [address] [address] Social History Date Tobacco Use [...]
--- OUTSIDE RECORDS SUMMARY | 2019-10-21 18:38 | XMS REPORT | Encounter Summary ---
Author Author [facility] Organization [facility] Address Unknown Phone Unavailable Care Team Providers Care Boilermaker'S Assistant Name Role Phone PCP Unavailable Reason for Visit * Reason Comments Headache * Auth/Cert Referred By Contact Referred To Contact Status Reason Specialty Diagnoses / Procedures [facility] Emergency [address] [place] [address] Closed Emergency Medicine Encounter Details Care Team Description Date Type Department Reggie Ramirez MD NO ADDRESS ON FILE 03/14/2009 Emergency [facility] Emergency Department [address] [address] Social History Date Tobacco [...] mouth daily XR) 30 mg Oral Cp24 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 adhd 07/05/2009 naproxen (NAPROSYN) 500 Take 500 [...] ED Notes * Halie Leung RN - 03/14/2009 3:[address] Ramirez notified of pt still having migraine after being seen in Dr Durbin's office on 03/12/09, Dr Ramirez stated to give outpatient injection of toradol and phenergan. documented in this encounter Plan of Treatment Not on filedocumented as of this encounter Visit Diagnoses Not on filedocumented in this encounter Administered Medications Action Date Dose Rate Site Medication Order MAR Action 03/14/2009 3:46 AM CDT 60 mg Deltoid, Left ketorolac (TORADOL) injection 60 mg Given 60 mg, IM, ONE TIME ONLY, 1 dose, 03/14/09 at 0345, Routine 03/14/2009 3:46 AM CDT 25 mg Deltoid, Right promethazine (PHENERGAN) injection 25 mg Given 25 mg, IM, ONE TIME ONLY, 1 dose, 03/14/09 at 0345, Routine documented in this encounter
--- OUTSIDE RECORDS SUMMARY | 2019-10-21 18:38 | XMS REPORT | Encounter Summary ---
Author Author [facility] Organization [facility] Address Unknown Phone Unavailable Care Team Providers Care Tribal Judge Name Role Phone PCP Unavailable Reason for Visit * Reason Comments Rash Pt to er with several compl aints. Pt reports a rash and generalized itching on her abd, she has a "sore" o n the lower left abd that she just noticed today, and she her wheezing is worse. Pt states that she has not had electricity for the past week and s he has not been able to take her breathing treatments and she is wanting er to give her a breathing treatment. Wound Infection Wheezing Encounter Details Care Team Description Date Type Department Casey Carbajal, DO [address] [place] [address] [place] [address] 03/05/2009 Emergency [facility] Emergency Department [address] [address] Social History Date Tobacco Use [...] Signs Reading Time Taken Comments Vital Sign 153/91 03/05/2009 12:08 AM CDT Blood Pressure 89 03/05/2009 12:08 AM CDT Pulse 37.3 C (99.2 F) 03/05/2009 12:08 AM CDT Temperature 18 03/05/2009 12:08 AM CDT Respiratory Rate 96% 03/05/2009 12:08 AM CDT Oxygen Saturation - - Inhaled Oxygen Concentration 142.4 kg (314 lb) 03/05/2009 12:08 AM CDT Weight 161.3 cm (5' 3.5") 03/05/2009 12:08 AM CDT Height 54.75 03/05/2009 12:08 AM CDT Body Mass Index documented in this encounter Discharge Instructions * Instructions* Ruel Gray RN - 03/05/2009 *Fill your prescriptions for bactrim and take as directed. *Follow up with your doctor as needed. documented in this encounter Medications at Time of Discharge Start Date End Date Medication Sig Dispensed Refills 10/05/2007 Oxygen-Air Delivery Take 2 L/min 0 Systems Misc Leisa by inhalation daily at bedtime. 10/05/2007 ACCU-CHEK ACTIVE CARE by See Admin 0 Misc Kit Instructions route. 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 adhd 02/15/2009 03/11/2009 oxycodone-acetaminophen Take 1 Tab by 90 Tab 0 (PERCOCET) 10-325 mg Oral mouth every 6 Tab hours as needed. 07/05/2009 naproxen (NAPROSYN) 500 Take 500 mg 0 mg Oral Tab by mouth 2 times daily with meals. 01/13/2009 07/05/2009 levalbuterol HFA (XOPENEX Take 2 Puffs 1 Inhaler 5 HFA) 45 mcg/Actuation by inhalation Inhalation HFAA every 6 hours. 01/08/2009 03/12/2009 Sumatriptan-Naproxen Take 1 Tab by 6 Tab 0 (TREXIMET) 85-500 mg Oral mouth one tablet time as needed for Migraine for 1 dose. may repeat dose once after 2 hr; MAX 2 tablets in 24 hr 12/28/2008 07/05/2009 furosemide (LASIX) 40 mg Take 1 Tab by 60 Tab 5 Oral Tab mouth 2 times daily. 1 tab Bid 12/28/2008 06/07/2009 warfarin (COUMADIN) 5 mg Take 1 Tab by 30 Tab 0 Oral Tab mouth daily. 12/17/2008 03/12/2009 lorazepam (ATIVAN) 1 mg Take 1 Tab by 60 Tab 2 Oral Tab mouth every 12 hours as needed for Other (See Comment). anxiety 11/27/2008 03/29/2009 zolpidem (AMBIEN) 10 mg Take [...] needed for Spasm for 90 doses. 10/12/2008 03/08/2009 topiramate (TOPAMAX) 100 Take 1 Tab by 60 Tab 5 mg Oral Tab mouth 2 times daily. 10/12/2008 07/05/2009 fluticasone-salmeterol Take 1 Puff 1 Device 5 (ADVAIR DISKUS) 500-50 by inhalation mcg/Dose Inhalation DsDv 2 times daily. 08/03/2008 06/07/2009 ondansetron (ZOFRAN ODT) Take 1 Tab by 30 Tab 0 4 mg Oral TbDL mouth every 8 hours as needed for Nausea. 07/22/2008 03/12/2009 albuterol-ipratropium Take 2 Puffs 1 Inhaler 5 (COMBIVENT) 103-18 by inhalation mcg/Actuation Inhalation every 6 Aero hours. 06/10/2008 07/30/2009 levalbuterol HFA (XOPENEX Take 2 Puffs 1 Inhaler 5 HFA) 45 mcg/Actuation by inhalation Inhalation HFAA every 6 hours. 10/31/2007 12/02/2009 DUONEB IN Take by 0 inhalation every 6 hours. documented as of this encounter ED Notes * Aok Scanning, Amb Physician - 05/20/2009 2:31 PM LEARNING SUPPORT SERVICES DIRECTOR * Aok Scanning, [facility] Physician - 03/05/2009 9:36 AM CDT documented in this encounter Plan of Treatment Order Schedule Name Type Priority Associated Diag noses Resp One Time Only for 1 Occurrences sta rting 03/05/2009 until 03/05/2009 NEBULIZER TX INTERMITTENT Respiratory Stat Care documented as of this encounter Procedures Comments Procedure Name Priority Date/Time Associated Diag nosis WOUND CULTURE WITH GRAM Stat 03/05/2009 STAIN 12:30 AM CDT documented in this encounter Results * WOUND CULTURE WITH GRAM STAIN (03/05/2009 12:30 AM CDT) ORGANISM STAPHYLOCOCCUS AUREUS (A) INTERFACE SYSTEM WOUND CULTURE QUANTITY OF ORGANISM: RARE INTERFACE SYSTEM Specimen Specimen from wound (specimen) - Abdomen Antibiotic Method Susceptibility Organism CIPROFLOXACIN DOMENICA MCG/ML <=0.5: Susceptible Staphylococcus aureus ERYTHROMYCIN DOMENICA MCG/ML >=8: Resistant Staphylococcus aureus GENTAMICIN DOMENICA MCG/ML <=0.5: Susceptible Staphylococcus aureus LEVOFLOXACIN DOMENICA MCG/ML 0.25: Susceptible Staphylococcus aureus LINEZOLID DOMENICA MCG/ML 2: Susceptible Staphylococcus aureus MOXIFLOXACIN DOMENICA MCG/ML <=0.25: Susceptible Staphylococcus aureus OXACILLIN DOMENICA MCG/ML 0.5: Susceptible Staphylococcus aureus PENICILLIN DOMENICA MCG/ML >=0.5: Resistant Staphylococcus aureus RIFAMPIN DOMENICA MCG/ML <=0.5: Susceptible Staphylococcus aureus TETRACYCLINE DOMENICA MCG/ML <=1: Susceptible Staphylococcus aureus TRIMETHOPRIM/ SULFAMETHOXAZOLE DOMENICA MCG/ML <=10: Susceptible Staphylococcus aureus VANCOMYCIN DOMENICA MCG/ML <=0.5: Susceptible Staphylococcus aureus Comment: CLEMENTE ROBISON ACCT#[id number], ,,,, Performing Organization Address City/State/Zipcode Ph one Number INTERFACE SYSTEM INTERFACE SYSTEM Refer to clinic/hospital department documented in this encounter Visit Diagnoses Not on filedocumented in this encounter Administered Medications Action Date Dose Rate Site Medication Order MAR Action 03/05/2009 12:40 AM CDT 3 mL IPRATROPIUM-ALBUTEROL 0.5 MG-2.5 MG/3 ML Given NEB SOLUTION 1 dose, Starting Sun03/05/09 at 0025, Until Sun03/05/09 at 0040, Created by cabinet override pull, 03/05/2009 12:49 AM CDT 1 Tablet trimethoprim-sulfamethoxazole (BACTRIM Given DS) 160-800 mg per tablet 1 Tab 1 Tablet, Oral, ONE TIME ONLY, 1 dose, Sun03/05/09 at 0045, Routine documented in this encounter
--- OUTSIDE RECORDS SUMMARY | 2019-10-21 18:39 | XMS REPORT | Encounter Summary ---
Author Author [facility] Organization [facility] Address Unknown Phone Unavailable Care Team Providers Care Artificial Teeth Inspector Name Role Phone PCP Unavailable Reason for Visit * Reason Comments Follow Up Encounter Details Care Team Description Date Type Department Turner Cabral DO [address] [place] [address] Follow-Up Examination, Following Unspeci fied Surgery (Primary Dx) 01/25/2009 Office Visit [address] [address] Social History Date Tobacco Use [...] - - Pulse 36.8 C (98.2 F) 01/25/2009 2:24 PM CDT Temperature - - Respiratory Rate - - Oxygen Saturation - - Inhaled Oxygen Concentration - - Weight - - Height - - Body Mass Index documented in this encounter Progress Notes * Turner Cabral DO - 01/25/2009 2:39 PM CDT Here for recheck of abscess of R axillary area EXAM healing well no evidence of further infection No further follow up needed documented in this encounter Plan of Treatment Not on filedocumented as of this encounter Visit Diagnoses Diagnosis Follow-up examination, following unspec ified surgery - Primary documented in this encounter
--- OUTSIDE RECORDS SUMMARY | 2019-10-21 18:39 | XMS REPORT | Encounter Summary ---
Author Author [facility] Organization [facility] Address Unknown Phone Unavailable Care Team Providers Care Operations Accountant Name Role Phone PCP Unavailable Reason for Visit * Reason Comments Nodule cyst axilla Encounter Details Care Team Description Date Type Department Turner Cabral DO [address] [place] [id number] Abscess of Skin and Subcutaneous Tissue 01/21/2009 Procedure visit [address] [address] Social History Date Tobacco Use [...] Signs Reading Time Taken Comments Vital Sign 110/64 01/21/2009 4:27 PM CDT Blood Pressure 96 01/21/2009 4:27 PM CDT Pulse 36.7 C (98 F) 01/21/2009 4:27 PM CDT Temperature - - Respiratory Rate - - Oxygen Saturation - - Inhaled Oxygen Concentration - - Weight - - Height - - Body Mass Index documented in this encounter Progress Notes * Turner Cabral DO - 01/21/2009 7:59 PM CDT SUBJECTIVE: Ayden Odom is a 38 y.o. female who presents for lesion removal, referred by . Maurice Durbin MD OBJECTIVE: Patient appears well. BP 110/64 | Pulse 96 | Temp 98 F (36.7 C) | LMP Hysterectomy Lesion on R axillary with patient's observations stated as pain, redness and kelsey inage. Attempted drainage yesterday with good success but still painfull and swo llen., exam of this area shows abscess. ASSESSMENT: skin abscess PROCEDURE NOTE: We have discussed this procedure, including option of not performing surgery, te chnique of surgery and potential for scarring today, and she agrees to proceed w ith surgery. After informed consent was obtained, using betadine for cleansing and Lidocaine (XYLOCAINE) 1% for anesthetic, with sterile technique, I&D of wound abscess was performed. Antibiotic dressing is applied, and wound care instructions provided. Be alert for any signs of cutaneous infection. The procedure was well tolerated without complications. Follow up: 4 days Instructions given to remove packing tomorrow. . documented in this encounter Plan of Treatment Not on filedocumented as of this encounter Visit Diagnoses Diagnosis Abscess of skin and subcutaneous tissue Cellulitis and abscess of unspecified s ite documented in this encounter"
--- OUTSIDE RECORDS SUMMARY | 2019-10-21 18:39 | XMS REPORT | Encounter Summary ---
Author Author [facility] Organization [facility] Address Unknown Phone Unavailable Care Team Providers Care Watcher Lookout Tower Name Role Phone PCP Unavailable Reason for Visit * Reason Comments Back Pain pt says she has severe back pain, she says it has been getting worse, Encounter Details Care Team Description Date Type Department Maurice Durbin MD [address] [place] [address] DM w/o Complication Type II; Unspecified Hereditary and Idiopathic Peripheral Neuropathy 02/26/2009 Office Visit [facility] Primar y Care [place] [address] [place] [address] Social History Date Tobacco Use [...] Reading Time Taken Comments Vital Sign 92/58 02/26/2009 8:46 AM CDT Blood Pressure 84 02/26/2009 8:46 AM CDT Pulse 36.4 C (97.5 F) 02/26/2009 8:46 AM CDT Temperature - - Respiratory Rate - - Oxygen Saturation - - Inhaled Oxygen Concentration - - Weight - - Height - - Body Mass Index documented in this encounter Progress Notes * Maurice Durbin MD - 02/26/2009 11:38 AM CDT Ayden Odom is a 38 y.o. female Chief Complaint Patient presents with Back Pain pt says she has severe back pain, she says it has been getting worse, has been having back pain on review of the meds the patient ran out of the oxyc ontin 7 days ago about the time she started to have more pain Review of Systems - General ROS: negative [...] for polyuria/polydipsia or new changes in weight Respiratory ROS: negative for cough, shortness of breath, or wheezing Cardiovascular ROS: negative for chest pain or dyspnea on exertion Gastrointestinal ROS: negative for reflux, abdominal pain, change in bowel habit s, or black or bloody stools Genito-Urinary ROS: negative for dysuria, trouble voiding, or hematuria Neurological ROS: negative for TIA or stroke symptoms Dermatological ROS: negative for skin rashes or unusual skin lesions I have reviewed the patient's past medical, surgical and family history in [facility] and updated the computerized patient record. OBJECTIVE: Physical Exam: BP 92/58 | Pulse 84 | Temp(Src) 97.5 F (36.4 C) (Tympanic) | LMP Hysterectom y General appearance: alert, in no distress Back: symmetric, no curvature. ROM normal. No CVA tenderness. Lungs: clear to auscultation bilaterally, normal respiratory effort Heart: normal rate, regular rhythm, normal S1, S2, no murmurs, rubs, clicks or g allops Abdomen: Soft, non-tender. Bowel sounds normal. No masses, no organomegaly. ASSESSMENT: Encounter Diagnoses Name Primary? DM w/o Complication Type II Unspecified Hereditary and Idiopathic Peripheral Neuropathy PLAN: Orders Placed This Encounter Oxycodone sr 60 mg 12 hr tab cholesterol is still elevated need to work on diet documented in this encounter Plan of Treatment Not on filedocumented as of this encounter Visit Diagnoses Diagnosis Type II or unspecified type diabetes me llitus without mention of complication, not stated as uncontrolled Unspecified hereditary and idiopathic p eripheral neuropathy documented in this encounter"
--- OUTSIDE RECORDS SUMMARY | 2019-10-21 18:39 | XMS REPORT | Encounter Summary ---
Author Author [facility] Organization [facility] Address Unknown Phone Unavailable Care Team Providers Care Spool Cleaner Name Role Phone PCP Unavailable Reason for Visit * Reason Comments Medication Refill Encounter Details Care Team Description Date Type Department Maurice Durbin MD [address] [place] [address] 01/25/2009 Refill [facility] Primar y Care [place] [address] [place] [address] Social History Date Tobacco Use [...]
--- OUTSIDE RECORDS SUMMARY | 2019-10-21 18:39 | XMS REPORT | Encounter Summary ---
Author Author [facility] Organization [facility] Address Unknown Phone Unavailable Care Team Providers Care Rn Digestive Name Role Phone PCP Unavailable Encounter Details Care Team Description Date Type Department Bhakti Carballo 01/21/2009 Orders Only [facility] Surgery [address] [phone] Social History Date Tobacco Use Types Packs/Day [...]
--- OUTSIDE RECORDS SUMMARY | 2019-10-21 18:39 | XMS REPORT | Encounter Summary ---
Author Author [facility] Organization [facility] Address Unknown Phone Unavailable Care Team Providers Care Supervisor Lime Name Role Phone PCP Unavailable Reason for Visit * Reason Comments Medication Refill Encounter Details Care Team Description Date Type Department Maurice Durbin MD [address] [place] [address] 02/23/2009 Refill [facility] Primar y Care [place] [address] [place] [address] Social History Date Tobacco Use [...]
--- OUTSIDE RECORDS SUMMARY | 2019-10-21 18:39 | XMS REPORT | Encounter Summary ---
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 adhd 02/17/2009 02/27/2009 trimethoprim-sulfamethoxa Take 1 Tab by 20 Tab 0 zole (BACTRIM DS) 160-800 mouth 2 times mg Oral Tab daily for 10 days. 02/15/2009 03/11/2009 oxycodone-acetaminophen Take 1 Tab by [...] Associated Diag nosis CBC WITH DIFFERENTIAL Routine 02/26/2009 Seizure 8:22 AM CDT PROTIME-INR Stat 02/26/2009 Other and Unspe cified 8:22 AM CDT Noninfectious Gastroenteritis and Colitis HEMOGLOBIN A1C Routine 02/26/2009 DM w/o Complica tion Type 8:22 AM CDT II VALPROIC ACID LEVEL, Routine 02/26/2009 Seizure TOTAL 8:22 AM CDT LIPID PANEL Routine 02/26/2009 DM w/o Complica tion Type 8:22 AM CDT II COMPREHENSIVE METABOLIC Routine 02/26/2009 Seizur e PANEL 8:22 AM CDT Pure Hypercholester olemia DM w/o Complication Type II documented in this encounter Results * CBC WITH DIFFERENTIAL (02/26/2009 8:22 AM CDT) WBC 8.70 3.0 - 10.4 x10E3 [facility] RBC 3.93 3.77 - 4.97 x10E6 [facility] HEMOGLOBIN 12.7 11.9 - 15.0 g/dL [facility] HEMATOCRIT 37.4 34.4 - 43.6 % [facility] MCV 95.2 79 - 100 fL [facility] MCH 32.4 28 - 34 pg [facility] MCHC 34.0 33 - 36 g/dL [facility] RDW 14.1 11.5 - 15.1 % [facility] PLATELETS 208 148 - 408 x10E3 [facility] MPV 7.7 7.4 - 10.6 fL [facility] NEUTROPHILS 59.3 43 - 73 % [facility] LYMPHOCYTES 33.2 19 - 47 % [facility] MONOCYTES 4.7 3 - 9 % [facility] EOSINOPHILS 2.5 0 - 6 % [facility] BASOPHILS 0.2 0 - 1.2 % [facility] NEUTROPHIL 5.16 1.3 - 7.6 x10E3 [facility] LYMPHOCYTE 2.90 0.6 - 4.9 x10E3 [facility] MONOCYTE 0.41 0.1 - 0.9 x10E3 [facility] EOSINOPHIL 0.22 (H) 0.0 - 0.2 x10E3 [facility] BASOPHILS 0.02Comment: [facility] 0 - 0.1 x10E3 [facility] ACCT#[id number], ,,,, CENTER [facility] Specimen Blood specimen (specimen) Performing Organization Address City/State/Zipcode Ph one Number INTERFACE SYSTEM [facility] CLIA# [id number] Milly RIOJAS [id number] [facility] [address] * COMPREHENSIVE METABOLIC PANEL (02/26/2009 8:22 AM CDT) GLUCOSE 91 70 - 110 mg/dl [facility] BUN 17.0 7 - 20 mg/dl [facility] CREATININE 1.00 0.6 - 1.0 mg/dl [facility] BUN/CREAT RATIO 17.0 10 - 20 [facility] GFR 67 >90 ml/min [facility] SODIUM 140 135 - 145 mmol/L [facility] POTASSIUM 4.2 3.3 - 4.8 mmol/L [facility] CHLORIDE 107 98 - 107 mmol/L [facility] CO2 26.4 22 - 31 mmol/L [facility] ANION GAP 11 4 - 20 [facility] CALCIUM 8.5 8.5 - 10.1 mg/dl [facility] ALBUMIN 3.1 (L) 3.4 - 5.0 g/dl [facility] TOTAL PROTEIN 6.6 6.4 - 8.2 g/dl [facility] GLOBULIN (CALC) 3.5 [facility] ALBUMIN/GLOBULI 0.9 [facility] N RATIO [facility] BILIRUBIN TOTAL 0.2 <1.1 mg/dl [facility] ALKALINE 106 50 - 136 IU/L [facility] PHOSPHATASE [facility] AST 12 10 - 40 IU/L [facility] ALT 37Comment: [facility] 25 - 70 IU/L [facility] ACCT#[id number], ,,,, CENTER [facility] Specimen Blood specimen (specimen) Performing Organization Address City/State/Zipcode Ph one Number INTERFACE SYSTEM [facility] CLIA# [id number] Milly RIOJAS [address] [facility] [address] * HEMOGLOBIN A1C (02/26/2009 8:22 AM CDT) HEMOGLOBIN A1C 5.7 0 - 6.0 % [facility] GLUCOSE, MEAN 117Comment: [facility] mg/dl [facility] BLOOD ACCT#[id number], ,,,, CENTER [facility] Specimen Blood specimen (specimen) Performing Organization Address City/State/Zipcode Ph one Number INTERFACE SYSTEM [facility] CLIA# [id number] Milly RIOJAS [address] [facility]UA [address] * LIPID PANEL (02/26/2009 8:22 AM CDT) CHOLESTEROL 283 (H) 140 - 200 mg/dl [facility] TRIGLYCERIDE 484 (H) 0 - 199 mg/dl [facility] Comment: [facility] TRIGLYCERIDES NORMAL LESS THAN 150 mg/dl BORDERLINE HIGH 150 - 199 mg/dl HIGH 200 - 499 mg/dl VERY HIGH GREATER THAN OR = 500 mg/dl HDL 31 29 - 89 mg/dl [facility] LDL 152 (H) <130 mg/dl [facility] CHOLESTEROL, Comment: [facility] DIRECT [facility] RISK CATEGORY LDL GOAL High risk: <100 mg/dl CHD or CHD risk equivalents (optional goal: <70 mg/dl) (10-year risk > 20%) Moderately high risk <130 mg/dl 2+ risk factors (10-year risk 10% to 20%) Moderate risk: <130 mg/dl 2+ risk factors (10-year risk < 10%) Lower risk: <160 mg/dl 0-1 risk factor [facility] [place] ACCT#[id number], ,,,, Specimen Blood specimen (specimen) Performing Organization Address [facility] one [facility] CLIA# [id number] Milly RIOJAS S [address] [facility] [address] [place] [address] * VALPROIC ACID LEVEL, TOTAL (02/26/2009 8:22 AM CDT) VALPROIC ACID 39.3 (L)Comment: 50 - 100 ug/ml [facility] ACCT#[id number], ,,,, [facility] Specimen Blood specimen (specimen) Performing Organization Address [facility] one [facility] CLIA# [id number] Milly RIOJAS S [address] [facility] [address] [place] [address] * PROTIME-INR (02/26/2009 8:22 AM CDT) PROTIME 9.4 (L) 9.5 - 11.5 Sec [facility] INR 0.89 (L)Comment: 2.0 - 3.0 [facility] ACCT#[id number], ,,,, [facility] Specimen Blood specimen (specimen) Performing Organization Address [facility] one Number [facility] CLIA# [id number] Milly RIOJAS S [address] [facility] [address] [place] [address] documented in this encounter Visit Diagnoses Diagnosis Other and unspecified noninfectious gas troenteritis and colitis(558.9) Other and unspecified noninfectious gas troenteritis and colitis Seizure Other convulsions Type II or unspecified type diabetes me llitus without mention of complication, not stated as uncontrolled Pure hypercholesterolemia documented in this encounter
--- OUTSIDE RECORDS SUMMARY | 2019-10-21 18:39 | XMS REPORT | Encounter Summary ---
Author Author [facility] Organization [facility] Address Unknown Phone Unavailable Care Team Providers Care Optical Glass Sawyer Name Role Phone PCP Unavailable Encounter Details Care Team Description Date Type Department Robby Rajan, RECREATION AIDE [address] [place] [phone] 02[facility] [address] [address] Social History Date Tobacco Use [...] meals, at bedtime, and as needed 07/05/2009 naproxen (NAPROSYN) 500 Take 500 mg 0 mg Oral Tab by mouth 2 times daily with meals. 01/25/2009 02/23/2009 amphetamine-dextroampheta Take 1 Cap by 30 Cap 0 mine SR 24 hour (ADDERALL mouth daily XR) 30 mg Oral Cp24 stogy maker. adhd 01/19/2009 02/26/2009 oxycodone CR (OXYCONTIN) Take 1 Tab by 60 Tab 0 60 mg Oral Tb12 mouth every 12 hours. 01/19/2009 02/15/2009 oxycodone-acetaminophen Take 1 Tab by 90 Tab 0 (PERCOCET) 10-325 mg Oral mouth every 6 Tab hours as needed. 01/13/2009 07/05/2009 levalbuterol HFA (XOPENEX Take 2 [...] Tab mouth nightly as needed for Insomnia. 11/04/2008 02/26/2009 olanzapine (ZYPREXA) 5 mg Take 1 Tab by 30 Tab 2 Oral Tab mouth daily at bedtime. 10/12/2008 07/05/2009 duloxetine (CYMBALTA) 30 Take 1 [...] inhalation mcg/Dose Inhalation DsDv 2 times daily. 02/26/2009 AMITRIPTYLINE 100 mg Oral Take 100 mg 0 Tab by mouth daily at bedtime. 09/10/2008 02/26/2009 ropinirole (REQUIP) 1 mg Take 1 Tab by 30 Tab 5 Oral Tab mouth daily at bedtime. 09/10/2008 02/26/2009 DEPAKOTE 500 mg Oral TbEC Take 1 Tab by 60 Tab 5 mouth 2 times daily. 09/10/2008 02/26/2009 atorvastatin (LIPITOR) 80 Take 0.5 Tabs 15 Tab 5 mg Oral Tab by mouth Daily LATE. 09/10/2008 02/26/2009 potassium chloride Take 1 Tab by 60 Tab 5 (K-DUR) 10 mEq Oral TbTQ mouth 2 times daily. 08/03/2008 06/07/2009 ondansetron (ZOFRAN [...] Date/Time Associated Diag nosis XR LUMBAR SPINE 4+ VW Routine 02/09/2009 Lumbar P ain 3:10 PM CDT documented in this encounter Results * XR LUMBAR SPINE 4+ VW (02/09/2009 3:10 PM CDT) Specimen Impressions Performed At : Essentially normal LS spine. Narrative Performed At LS SPINE: Done 02-09-09, compared to prior exam of 12-03-08. Four views are obtained. There are clips in the right upper quad rant consistent with prior cholecystectomy. There is an IVC filt er in place. No fractures or subluxations are seen. No bony masses are noted. There are no significant degenerative changes. Procedure Note Donaldo Aleman MD - 02/11/2009 9:40 AM CDT LS SPINE: Done 02-09-09, compared to prior exam of 12-03-08. Four views are obtained. There are clips in the right upper quadrant consistent with prior cholecystectomy. There is an IVC filter in place. No fractures or subluxations are seen. No bony masses are noted. There are no significant degenerative changes. IMPRESSION: Essentially normal LS spine. documented in this encounter Visit Diagnoses Diagnosis Lumbar pain Lumbago documented in this encounter
--- OUTSIDE RECORDS SUMMARY | 2019-10-21 18:39 | XMS REPORT | Encounter Summary ---
Author Author [facility] Organization [facility] Address Unknown Phone Unavailable Care Team Providers Care Dehydration Plant Operator Name Role Phone PCP Unavailable Reason for Visit * Reason Comments Breast Problem pt says she has a warm mass on breast, right side Cyst pt says she has another kno t under left arm Ear Check pt says she has ear pain an d itching Encounter Details Care Team Description Date Type Department Maurice Durbin MD [address] [place] [address] Breast Abscess (Primary Dx); Unspecified Hereditary and Idiopathic Peripheral Neuropathy 02/17/2009 Office Visit [facility] Primar y Care [place] [address] [place] [address] Social History Date Tobacco Use [...] Reading Time Taken Comments Vital Sign 102/62 02/17/2009 11:20 AM CDT Blood Pressure 70 02/17/2009 11:20 AM CDT Pulse 36.6 C (97.8 F) 02/17/2009 11:20 AM CDT Temperature - - Respiratory Rate - - Oxygen Saturation - - Inhaled Oxygen Concentration - - Weight - - Height - - Body Mass Index documented in this encounter Progress Notes * Maurice Durbin MD - 02/22/2009 1:16 PM CDT Ayden Odom is a 38 y.o. female Chief Complaint Patient presents with Breast Problem pt says she has a warm mass on breast, right side Cyst pt says she has another knot under left arm Ear Check pt says she has ear pain and itching Still with swelling on the left breast Review of Systems - General ROS: negative [...] for polyuria/polydipsia or new changes in weight I have reviewed the patient's past medical, surgical and family history in [facility] and updated the computerized patient record. OBJECTIVE: Physical Exam: BP 102/62 | Pulse 70 | Temp(Src) 97.8 F (36.6 C) (Tympanic) | LMP Hysterecto my General appearance: alert, in no distress Lungs: clear to auscultation bilaterally, normal respiratory effort Breasts: tenderness of the left axillary area is noted Heart: normal rate, regular rhythm, normal S1, S2, no murmurs, rubs, clicks or g allops Abdomen: Soft, non-tender. Bowel sounds normal. No masses, no organomegaly. ASSESSMENT: Encounter Diagnoses Name Primary? Breast Abscess Yes Unspecified Hereditary and Idiopathic Peripheral Neuropathy PLAN: Orders Placed This Encounter Trimethoprim-sulfamethoxazole 160 mg-800 mg tab documented in this encounter Plan of Treatment Not on filedocumented as of this encounter Visit Diagnoses Diagnosis Breast abscess - Primary Inflammatory disease of breast Unspecified hereditary and idiopathic p eripheral neuropathy documented in this encounter"
--- OUTSIDE RECORDS SUMMARY | 2019-10-21 18:39 | XMS REPORT | Encounter Summary ---
Author Author [facility] Organization [facility] Address Unknown Phone Unavailable Care Team Providers Care Spotlight Operator Name Role Phone PCP Unavailable Reason for Visit * Reason Comments Back Pain pt says that her back is hu rting her again Shoulder Pain pt says her left shoulder i s hurting her Encounter Details Care Team Description Date Type Department Maurice Durbin MD [address] [place] [address] Pain in Joint, Shoulder Region (Primary Dx); Seizure; Pure Hypercholesterolemia; DM w/o Complication Type II 02/03/2009 Office Visit [facility] Primar y Care [place] [address] [place] [address] Social History Date Tobacco Use [...] Signs Reading Time Taken Comments Vital Sign 98/70 02/03/2009 3:49 PM CDT Blood Pressure 94 02/03/2009 3:49 PM CDT Pulse 36.7 C (98 F) 02/03/2009 3:49 PM CDT Temperature - - Respiratory Rate - - Oxygen Saturation - - Inhaled Oxygen Concentration - - Weight - - Height - - Body Mass Index documented in this encounter Progress Notes * Maurice Durbin MD - 02/04/2009 8:29 AM CDT HISTORY OF PRESENT ILLNESS Ayden Odom, a 38 y.o. female. Back Pain This is a chronic problem. The problem occurs constantly. The pain is associated with falling. The pain is present in the lumbar spine and thoracic spine. The p ain is at a severity of 8/10. Pertinent negatives include no chest pain, no feve r, no numbness, no weight loss, no headaches, no abdominal pain, no abdominal sw elling, no bowel incontinence, no perianal numbness, no bladder incontinence, no dysuria, no pelvic pain, no leg pain, no paresthesias, no paresis, no tingling and no weakness. Shoulder Pain This is a new problem. The current episode started yesterday. The problem occurs constantly. The pain is present in the left shoulder. The pain quality is descr ibed as sharp and pounding. The pain is at a severity of 9/10. Associated sympto ms include limited range of motion and stiffness. Pertinent negatives include no numbness and no tingling. There has been a history of trauma (fell off the porch again). REVIEW OF SYSTEMS Review of Systems Constitutional: Negative for fever and weight loss. HENT: Negative for ear pain and nosebleeds. Eyes: Negative for blurred vision and double vision. Respiratory: Negative for cough, hemoptysis, sputum production and shortness of breath. Cardiovascular: Negative for chest pain, palpitations and orthopnea. Gastrointestinal: Negative for heartburn, nausea, vomiting and abdominal pain. Genitourinary: Negative for bladder incontinence, dysuria, urgency, frequency an d pelvic pain. Musculoskeletal: Negative for myalgias. Skin: Negative for rash. Neurological: Negative for dizziness, tingling, tremors, weakness, numbness and headaches. Endo/Heme/Allergies: Does not bruise/bleed easily. Psychiatric/Behavioral: Negative for depression. PHYSICAL EXAM BP 98/70 | Pulse 94 | Temp(Src) 98 F (36.7 C) (Tympanic) | LMP Hysterectomy Physical Exam Constitutional: She appears well-developed and well-nourished. HENT: Head: Normocephalic and atraumatic. Eyes: Conjunctivae and extraocular motions are normal. Pupils are equal, round, and reactive to light. Neck: Normal range of motion. Neck supple. Cardiovascular: Normal rate, regular rhythm and normal heart sounds. Pulmonary/Chest: Effort normal and breath sounds normal. Abdominal: Soft. Bowel sounds are normal. Musculoskeletal: Left shoulder: She exhibits decreased range of motion, tenderness and bony tenderness. Skin: Skin is warm and dry. ASSESSMENT and PLAN: Encounter Diagnoses Code Name Primary? Qualifier 719.41 Pain in Joint, Shoulder Region Yes Plan: XR SHOULDER 2+ VW LEFT 780.39H Seizure Plan: COMPREHENSIVE METABOLIC PANEL, VALPROIC ACID LEVEL, TOTAL, CBC WITH DIFFE RENTIAL 272.0 Pure Hypercholesterolemia Plan: COMPREHENSIVE METABOLIC PANEL 250.00 DM w/o Complication Type II Plan: LIPID PANEL, COMPREHENSIVE METABOLIC PANEL, HEMOGLOBIN A1C Orders Placed This Encounter Xr shoulder 2+ vw left Lipid panel Comprehensive metabolic panel Valproic acid level, total Cbc with differential Hemoglobin a1c Prednisone 10 mg tab Has seen dr johnson and has change the seizure meds documented in this encounter Plan of Treatment Not on filedocumented as of this encounter Results * HEMOGLOBIN A1C (02/26/2009 8:22 AM CDT) HEMOGLOBIN A1C 5.7 0 - 6.0 % [facility] GLUCOSE, MEAN 117Comment: RICKI,[place] mg/dl [facility] BLOOD ACCT#[id number], ,,,, CENTER [facility] Specimen Blood specimen (specimen) Performing Organization Address City/State/Zipcode Ph one Number INTERFACE SYSTEM [facility] ALYSA BENTONIA# [id number] Milly RIOJAS [address] RE[facility] [address] [address] [place] [address] * CBC WITH DIFFERENTIAL (02/26/2009 8:22 AM CDT) WBC 8.70 3.0 - 10.4 x10E3 [facility] RBC 3.93 3.77 - 4.97 x10E6 [facility] HEMOGLOBIN 12.7 11.9 - 15.0 g/dL [facility] HEMATOCRIT 37.4 34.4 - 43.6 % [facility] MCV 95.2 79 - 100 fL [facility] MCH 32.4 28 - 34 pg [facility] MCHC 34.0 33 - 36 g/dL [facility] RDW 14.1 11.5 - 15.1 % [facility] PLATELETS 208 148 - 408 x10E3 [facility] MPV 7.7 7.4 - 10.6 fL [facility] NEUTROPHILS 59.3 43 - 73 % [facility] LYMPHOCYTES 33.2 19 - 47 % [facility] MONOCYTES 4.7 3 - 9 % [facility] [place] [facility] EOSINOPHILS 2.5 0 - 6 % [facility] BASOPHILS 0.2 0 - 1.2 % [facility] NEUTROPHIL 5.16 1.3 - 7.6 x10E3 [facility] LYMPHOCYTE 2.90 0.6 - 4.9 x10E3 [facility] MONOCYTE 0.41 0.1 - 0.9 x10E3 [facility] EOSINOPHIL 0.22 (H) 0.0 - 0.2 x10E3 [facility] AL[facility] BASOPHILS 0.02Comment: [facility] 0 - 0.1 x10E3 [facility] ABSOLUTE ACCT#[id number], ,,,, CENTER [facility] Specimen Blood specimen (specimen) Performing Organization Address [facility], [facility] one [facility] [place] CLIA# [id number] ALYSA REBA, S [address] RE[facility] [address] [place] [address] * VALPROIC ACID LEVEL, TOTAL (02/26/2009 8:22 AM CDT) Pathologist [facility] VALPROIC ACID 39.3 (L)Comment: 50 - 100 ug/ml [facility] TOTAL [facility] [place] ACCT#[id number], ,,,, [facility] LAB Specimen Blood specimen (specimen) Performing Organization Address [facility], [facility] one Number [facility] CLIA# [id number] [facility] REBA, S [address] RE[facility] [address] [place] [address] * COMPREHENSIVE METABOLIC PANEL (02/26/2009 8:22 AM CDT) GLUCOSE 91 70 - 110 mg/dl [facility] BUN 17.0 7 - 20 mg/dl [facility] CREATININE 1.00 0.6 - 1.0 mg/dl [facility] BUN/CREAT RATIO 17.0 10 - 20 [facility] GFR 67 >90 ml/min [facility] AL[facility]SA [facility] SODIUM 140 135 - 145 mmol/L [facility] POTASSIUM 4.2 3.3 - 4.8 mmol/L [facility] CHLORIDE 107 98 - 107 mmol/L [facility] CO2 26.4 22 - 31 mmol/L [facility] ANION GAP 11 4 - 20 [facility] CALCIUM 8.5 8.5 - 10.1 mg/dl [facility] ALBUMIN 3.1 (L) 3.4 - 5.0 g/dl [facility] TOTAL PROTEIN 6.6 6.4 - 8.2 g/dl [facility] GLOBULIN (CALC) 3.5 [facility] LAB ALBUMIN/GLOBULI 0.9 [facility] N RATIO [facility] LAB BILIRUBIN TOTAL 0.2 <1.1 mg/dl [facility] ALKALINE 106 50 - 136 IU/L [facility] PHOSPHATASE [facility] LAB AST 12 10 - 40 IU/L [facility] ALT 37Comment: RICKI,CLEMENTE 25 - 70 IU/L [facility] ACCT#[id number], ,,,, CENTER AL[facility] Specimen Blood specimen (specimen) Performing Organization Address City/State/Zipcode Ph one Number INTERFACE SYSTEM [facility] ALYSA CLIA# [id number] Milly RIOJAS S [address] RE[facility] LAB [address] * LIPID PANEL (02/26/2009 8:22 AM CDT) CHOLESTEROL 283 (H) 140 - 200 mg/dl [facility] TRIGLYCERIDE 484 (H) 0 - 199 mg/dl [facility] Comment: [facility] REFERENCE RANGE - [facility] TRIGLYCERIDES NORMAL LESS THAN 150 mg/dl BORDERLINE HIGH 150 - 199 mg/dl HIGH 200 - 499 mg/dl VERY HIGH GREATER THAN OR = 500 mg/dl HDL 31 29 - 89 mg/dl [facility] LAB LDL 152 (H) <130 mg/dl [facility] CHOLESTEROL, Comment: CENTER [place] [facility] RISK CATEGORY LDL GOAL High risk: <100 mg/dl CHD or CHD risk equivalents (optional goal: <70 mg/dl) (10-year risk > 20%) Moderately high risk <130 mg/dl 2+ risk factors (10-year risk 10% to 20%) Moderate risk: <130 mg/dl 2+ risk factors (10-year risk < 10%) Lower risk: <160 mg/dl 0-1 risk factor CLEMENTE ROBISON ACCT#[id number], ,,,, Specimen Blood specimen (specimen) Performing Organization Address City/State/[facility] Center[facility] one Number INTERFACE SYSTEM [facility] ALYSA GERARDO# [id number] Milly RIOJAS S [address] RE[facility] LAB [address] [facility] * XR SHOULDER 2+ VW LEFT (02/03/2009 4:28 PM CDT) Specimen Impressions Performed At : Normal left shoulder. Narrative Performed At LEFT SHOULDER: HISTORY: PAIN. 3 views are obtained. No fracture, dislocation, or other acut e bony abnormality is demonstrated. The soft tissues are normal. Procedure Note Donaldo Aleman MD - 02/04/2009 9:57 AM CDT LEFT SHOULDER: HISTORY: PAIN. 3 views are obtained. No fracture, dislocation, or other acute bony abnormality is demonstrated. The soft tissues are normal. IMPRESSION: Normal left shoulder. documented in this encounter Visit Diagnoses Diagnosis Pain in joint, shoulder region - Primar y Seizure Other convulsions Pure hypercholesterolemia Type II or unspecified type diabetes me llitus without mention of complication, not stated as uncontrolled documented in this encounter"
--- OUTSIDE RECORDS SUMMARY | 2019-10-21 18:39 | XMS REPORT | Encounter Summary ---
Author Author [facility] Organization [facility] Address Unknown Phone Unavailable Care Team Providers Care Paving Stone Installer Name Role Phone PCP Unavailable Reason for Visit * Reason Comments Medication Refill Encounter Details Care Team Description Date Type Department Maurice Durbin MD [address] [place] [address] 02/15/2009 Refill [facility] Primar y Care [place] [address] [place] [address] Social History Date Tobacco Use [...]
--- OUTSIDE RECORDS SUMMARY | 2019-10-21 18:39 | XMS REPORT | Encounter Summary ---
Author Author [facility] Organization [facility] Address Unknown Phone Unavailable Care Team Providers Care Passenger Coach Driver Name Role Phone PCP Unavailable Reason for Visit * Reason Comments Back Pain Back Pain-Fell off Porch Shoulder Pain Lt Shoulder Pain * Consultation (Routine) Referred By Contact Referred To Contact Status Reason Specialty Diagnoses / Procedures Robby Rajan APRN [address] [place] [address] Closed Orthopedic Diagnoses Surgery Lt Shoulder & Back Pain/Consult (xray prior to visit) P rocedures CONSULT Encounter Details Care Team Description Date Type Department Robby Rajan APRN [address] [place] [address] Back Pain; Pain in Joint, Shoulder Region; Lumbar Pain 02/09/2009 Initial consult [facility] [address] [address] Social History Date Tobacco Use [...] of this encounter Progress Notes * Robby Rajan ARNP - 02/09/2009 2:42 PM CDT S: Fell off of porch one week ago. History or back since approximately 21 yo w hen carrying her child. No surgery. Numbness and tingling down both legs over last year. Has hx of "polyneuropathy and fibromyaglia." No bowel or bladder dy sfunction. Legs feel weak some. Can't walk very far without legs "giving out." Pain in low back worse since porch incident no radiating worsening of symptoms. PT ordered by Dr. Durbin about one year ago. Oxycodone now for pain. Lucy hernandezy take oxycontin prn. Has steroid rx which hasn't been filled yet. Unemploye d. Disabled due to fibromyalgia and polyneuropathy for 2-3 years now. No other injury one week ago. Right shoulder sx dr. Leong torn rc through scope partial > 1 yr. O: normal neuro exam with power 4+ to 5/5 throughout. i believe any weakness sh e may have shown today was secondary to pain inhibition. Trace pedal pulses, va ricosities noted, without babinski or clonus. Marked limited extension and flex ion lumbar spine. Negative straight leg raise sign sitting. Able to raise on t oes and heels. Low back pain without radicular pain. 5'3", 302 lbs today. A: Low back pain, sprain; obesity P: Will xray today to rule out fracture. i have recommended forearm crutches w hich she has. Rest, ice, naproxen 500mg one po bid for 3-4 weeks, will call if has any side effects from this. Recheck in 3-4 weeks warning were discussed. S elf-limiting problem i believe. documented in this encounter Plan of Treatment [...] Visit Diagnoses Diagnosis Back pain Backache, unspecified Pain in joint, shoulder region Lumbar pain Lumbago documented in this encounter
--- OUTSIDE RECORDS SUMMARY | 2019-10-21 18:39 | XMS REPORT | Encounter Summary ---
Author Author [facility] Organization [facility] Address Unknown Phone Unavailable Care Team Providers Care Manager Style Name Role Phone PCP Unavailable Reason for Visit * Reason Comments Medication Refill Encounter Details Care Team Description Date Type Department Maurice Durbin MD [address] [place] [address] 02/26/2009 Refill [facility] Primar y Care [place] [address] [place] [address] Social History Date Tobacco Use [...]
--- OUTSIDE RECORDS SUMMARY | 2019-10-21 18:39 | XMS REPORT | Encounter Summary ---
Author Author [facility] Address Unknown Phone Unavailable Care Team Providers Care Linotyper Name Role Phone PCP Unavailable Encounter Details Care Team Description Date Type Department Maurice Durbin MD [address] [place] [address] 02/03/2009 Hospital [facility] Imaging Se rvices Encounter [address] [address] Social History Date Tobacco [...] Before meals, at bedtime, and as needed 02/03/2009 02/09/2009 predniSONE (DELTASONE) 10 Take 1 Tab by 21 Tab 0 mg Oral Tab mouth see administratio n instructions for 6 days. 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 documented as of this encounter Miscellaneous Notes * Scanned Form - Aok Scanning, Amb Physician - 02/04/2009 11:14 AM CDT documented in this encounter Plan of Treatment Not on filedocumented as of this encounter Procedures Comments Procedure Name Priority Date/Time Associated Diag nosis XR SHOULDER 2+ VW LEFT Routine 02/03/2009 Pain in Joint, Shoulder 4:28 PM CDT Region documented in this encounter Results * XR SHOULDER 2+ VW LEFT (02/03/2009 [...] Diagnoses Diagnosis Pain in joint, shoulder region documented in this encounter
--- OUTSIDE RECORDS SUMMARY | 2019-10-21 18:40 | XMS REPORT | Encounter Summary ---
Author Author [facility] Organization [facility] Address Unknown Phone Unavailable Care Team Providers Care Mail Clerks Supervisor Name Role Phone PCP Unavailable Reason for Visit * Reason Comments Medication Review Encounter Details Care Team Description Date Type Department Nancy Francois Medication Review 01/19/2009 Telephone [facility] Primar y Care [place] [address] [place] [phone] Social History Date Tobacco Use Types Packs/Day [...] encounter Miscellaneous Notes * Telephone Encounter - Nancy Francois - 01/19/2009 4:27 PM CDT Pharmacy called insurance will not pay for omeprazole but will pay for prilosec otc ok's change. documented in this encounter Plan of Treatment Not on filedocumented as of this encounter Visit Diagnoses Not on filedocumented in this encounter
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
--- OUTSIDE RECORDS SUMMARY | 2019-10-21 18:40 | XMS REPORT | Encounter Summary ---
Author Author [facility] Organization [facility] Address Unknown Phone Unavailable Care Team Providers Care Veneer Press Operator Name Role Phone PCP Unavailable Encounter Details Care Team Description Date Type Department [facility], Lab Schedule 01/08/2009 Hospital [facility] General Encounter Laboratory Services [address] [address] Social History Date Tobacco Use [...] Before meals, at bedtime, and as needed 01/08/2009 03/12/2009 Sumatriptan-Naproxen Take 1 Tab by [...] 30 Tab 0 Oral Tab mouth daily. 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 12/17/2008 01/19/2009 oxycodone CR (OXYCONTIN) Take 1 [...] Associated Diag nosis CBC WITH DIFFERENTIAL Routine 01/08/2009 Malaise and Fatigue 11:07 AM CDT TSH Routine 01/08/2009 Malaise and Fat igue 11:07 AM CDT T4 FREE Routine 01/08/2009 Malaise and Fat igue 11:07 AM CDT COMPREHENSIVE METABOLIC Routine 01/08/2009 Malais e and Fatigue PANEL 11:07 AM CDT documented in this encounter Results * CBC WITH DIFFERENTIAL (01/08/2009 11:07 AM CDT) WBC 6.84 3.0 - 10.4 x10E3 [facility] RBC 4.33 3.77 - 4.97 x10E6 [facility] HEMOGLOBIN 13.8 11.9 - 15.0 g/dL [facility] HEMATOCRIT 40.3 34.4 - 43.6 % [facility] MCV 93.0 79 - 100 fL [facility] MCH 31.9 28 - 34 pg [facility] MCHC 34.3 33 - 36 g/dL [facility] RDW 13.6 11.5 - 15.1 % [facility] PLATELETS 185 148 - 408 x10E3 [facility] MPV 8.3 7.4 - 10.6 fL [facility] NEUTROPHILS 60.5 43 - 73 % [facility] LYMPHOCYTES 31.3 19 - 47 % [facility] MONOCYTES 5.4 3 - 9 % [facility] EOSINOPHILS 2.5 0 - 6 % [facility] BASOPHILS 0.3 0 - 1.2 % [facility] NEUTROPHIL 4.14 1.3 - 7.[address] [facility] LYMPHOCYTE 2.14 0.6 - 4.[address] [facility] MONOCYTE 0.37 0.1 - 0.[address] [facility] EOSINOPHIL 0.17 0.0 - 0.[address] [facility] BASOPHILS 0.02Comment: [facility] 0 - 0.1 x10E3 [facility] ACCT#[id number], ,,,, [facility] Specimen Blood specimen (specimen) Performing Organization Address City/State/Zipcode Ph one Number [facility] [place]# [id number] [facility], [place] S [address] [facility] [address] [facility] * COMPREHENSIVE METABOLIC PANEL (01/08/2009 11:07 AM CDT) GLUCOSE 104 70 - 110 mg/dl [facility] BUN 20.0 7 - 20 mg/dl [facility] CREATININE 1.10 (H) 0.6 - 1.0 mg/dl [facility] BUN/CREAT RATIO 18.2 10 - 20 [facility] GFR 60 >90 ml/min [facility] SODIUM 140 135 - 145 mmol/L [facility] POTASSIUM 3.5 3.3 - 4.8 mmol/L [facility] CHLORIDE 106 98 - 107 mmol/L [facility] CO2 25.5 22 - 31 mmol/L [facility] ANION GAP 12 4 - 20 [facility] CALCIUM 8.9 8.5 - 10.1 mg/dl [facility] ALBUMIN 3.6 3.4 - 5.0 g/dl [facility] TOTAL PROTEIN 7.3 6.4 - 8.2 g/dl [facility] GLOBULIN (CALC) 3.7 [facility] ALBUMIN/GLOBULI 1.0 [facility] BILIRUBIN TOTAL 0.2 <1.1 mg/dl [facility] ALKALINE 156 (H) 50 - 136 IU/L [facility]PHAT[facility] AST 17 10 - 40 IU/L [facility] ALT 47Comment: [facility] 25 - 70 IU/L [facility] ACCT#[id number], ,,,, [facility] Specimen Blood specimen (specimen) Performing Organization Address [facility] one Number [facility] CLIA# [id number] Milly RIOJAS [id number] [facility] [address] [place] [address] * T4 FREE (01/08/2009 11:07 AM CDT) T4 FREE 1.44Comment: [facility] 0.59 - 1.5 ng/d l [facility] ACCT#[id number], ,,,, [facility] Specimen Blood specimen (specimen) Performing Organization Address [facility] Ph one Number [facility] CLIA# [id number] Milly RIOJAS [address] [facility] [address] [facility] * TSH (01/08/2009 11:07 AM CDT) TSH 0.65Comment: [facility] 0.34 - 4.82 uIU /ml [facility] ACCT#[id number], ,,,, [facility] Specimen Blood specimen (specimen) Performing Organization Address [facility] Ph one Number [facility] CLIA# [id number] Milly RIOJAS [address] documented in this encounter Visit Diagnoses Diagnosis Malaise and fatigue Other malaise and fatigue documented in this encounter
--- OUTSIDE RECORDS SUMMARY | 2019-10-21 18:40 | XMS REPORT | Encounter Summary ---
Author Author [facility] Organization [facility] Address Unknown Phone Unavailable Care Team Providers Care Chief Talent Officer Name Role Phone PCP Unavailable Reason for Visit * Reason Comments Headache X 3 days Nausea Vomiting Light Sensitivity Encounter Details Care Team Description Date Type Department Kaye Chandra MD [address] [place] [address] [phone] Migraine Headache 01/07/2009 Emergency [facility] Emergency Department [address] [phone] Social History Date Tobacco Use Types Packs/Day [...] Signs Reading Time Taken Comments Vital Sign 126/75 01/07/2009 9:53 PM CDT Blood Pressure 95 01/07/2009 9:53 PM CDT Pulse 37 C (98.6 F) 01/07/2009 9:53 PM CDT Temperature 24 01/07/2009 9:53 PM CDT Respiratory Rate 96% 01/07/2009 9:53 PM CDT Oxygen Saturation - - Inhaled Oxygen Concentration 136.1 kg (300 lb) 01/07/2009 9:53 PM CDT Weight 160 cm (5' 3") 01/07/2009 9:53 PM CDT Height 53.14 01/07/2009 9:53 PM CDT Body Mass Index documented in this encounter Discharge Instructions * Instructions* Kaye Chandra MD - 01/07/2009 Return if worsening symptoms documented in this encounter Medications at Time of Discharge Start Date End Date Medication Sig Dispensed Refills 10/05/2007 Oxygen-Air Delivery Take 2 L/min 0 Systems Misc Leisa by inhalation daily at bedtime. 10/05/2007 ACCU-CHEK ACTIVE CARE by See Admin 0 Misc Kit Instructions route. Before meals, at bedtime, and as needed 12/28/2008 07/05/2009 furosemide (LASIX) 40 mg Take 1 Tab by 60 Tab 5 Oral Tab mouth 2 times daily. 1 tab Bid 12/28/2008 06/07/2009 warfarin (COUMADIN) 5 mg Take 1 Tab by 30 Tab 0 Oral Tab mouth daily. 12/25/2008 01/25/2009 amphetamine-dextroampheta Take 1 Cap by 30 Cap 0 mine SR 24 hour (ADDERALL mouth daily XR) 30 mg Oral Cp24 press assistant and feeder. adhd 12/17/2008 01/19/2009 oxycodone CR (OXYCONTIN) Take [...] of this encounter ED Notes * Ari tSanley - 01/08/2009 9:08 AM CDT * Kaye Chandra MD - 01/07/2009 10:44 PM CDT HISTORY OF PRESENT ILLNESS Ayden Odom, a 38 y.o. female presents to the ED with a Chief Complaint o f Headache, Nausea, Vomiting and Light Sensitivity HPI Comments: 3 days of headache worse on left side, feels like a typical migrai ne but unable to get rid of it at home. Has taken imitrex orally twice. Having nausea and vomiting. Has appointment with MD tomorrow. Patient is a 38 y.o. female presenting with headaches, nausea, and vomiting. The history is provided by the patient. Headache This is a recurrent problem. The current episode started more than 2 days ago. T he problem occurs constantly. The problem has not changed since onset. The heada mercedes is associated with bright light. The pain is located in the left unilateral region. The pain quality is described as throbbing. The pain is at a severity of 8/10. The pain does not radiate. Associated symptoms include malaise/fatigue, n ausea and vomiting. Pertinent negatives include no anorexia, no fever and no rosi rtness of breath. She has tried triptan therapy for the symptoms. The treatment provided no relief. Nausea Associated symptoms include abdominal pain and headaches. Pertinent negatives in clude no chills, no fever, no myalgias and no cough. Vomiting Associated symptoms include abdominal pain and headaches. Pertinent negatives in clude no chills, no fever, no myalgias and no cough. REVIEW OF SYSTEMS Review of Systems Constitutional: Positive for malaise/fatigue. Negative for fever and chills. HENT: Negative for ear pain and neck pain. Eyes: Positive for photophobia. Negative for blurred vision and double vision. Respiratory: Negative for cough and shortness of breath. Cardiovascular: Negative for chest pain. Gastrointestinal: Positive for nausea, vomiting and abdominal pain. Musculoskeletal: Negative for myalgias. Skin: Negative for rash. Neurological: Positive for headaches. Negative for dizziness, tingling, sensory change, speech change and focal weakness. PAST MEDICAL HISTORY REVIEWED Past [...] Aloe vera, Tape and Doxycycline HOME MEDICATIONS sumatriptan (IMITREX) 50 mg Oral Tab Take 1 Tab by mouth see administration instructions. furosemide (LASIX) 40 mg Oral Tab Take 1 Tab by mouth 2 times daily. 1 tab B id warfarin (COUMADIN) 5 mg Oral Tab Take 1 Tab by mouth daily. amphetamine-dextroamphetamine SR 24 hour (ADDERALL XR) 30 mg Oral Cp24 Take 1 Cap by mouth daily press assistant and feeder. adhd oxycodone CR (OXYCONTIN) 60 mg Oral Tb12 [...] 1 Tab by mouth daily at bedtime. duloxetine (CYMBALTA) 30 mg Oral CpDR Take [...] 1 Puff by inhalation 2 times daily. AMITRIPTYLINE 100 mg Oral Tab Take 100 [...] then as needed for nausea , reflux albuterol-ipratropium (COMBIVENT) 103-18 mcg/Actuation Inhalation Aero Take 2 Puffs by inhalation every 6 hours. levalbuterol HFA (XOPENEX HFA) 45 mcg/Actuation Inhalation HFAA Take 2 Puffs by inhalation every 6 hours. fluticasone (FLONASE) 50 mcg/Actuation Both Nostril SpSn Administer 2 Sprays in each nostril daily. Oxygen-Air Delivery Systems Misc Leisa Take 2 L/min by inhalation daily at [facility]. ACCU-CHEK ACTIVE CARE Misc Kit by See Admin Instructions route. Before meals , at bedtime, and as needed LOVAZA 1 gram Oral Cap Take 1 Gram by mouth 3 times daily. DUONEB IN Take by inhalation every 6 hours. OXYCODONE HCL/ACETAMINOPHEN (OXYCODONE-ACETAMINOPHEN) 10-325 mg Oral Tab Abiodun e 1 Tab by mouth every 6 hours as needed. phenytoin (DILANTIN EXTENDED) 100 mg Oral Cap Take 2 Caps by mouth 2 times d aily. ondansetron (ZOFRAN ODT) 4 mg Oral TbDL Take 1 Tab by mouth every 8 hours as needed for Nausea. PHYSICAL EXAM Initial Vitals BP 01/07/09 2153 126/75 mmHg Pulse 01/07/09 2153 95 Resp 01/07/09 2153 24 Temp 01/07/09 2153 98.6 F (37 C) Temp src 01/07/09 2153 Oral SpO2 01/07/09 2153 96 % Physical Exam Constitutional: She is [...] motion. Neurological: She is alert and oriented. She displays normal reflexes. No crania l nerve deficit. She exhibits normal muscle tone. Coordination normal. Skin: Skin is warm and dry. MDM Coding Reviewed: previous chart, nursing note and vitals Total time providing critical care: > 105 minutes. This excludes time spent performing separately reportable procedures and services. DIAGNOSTICS LAB: RADIOLOGY: EKG: PROCEDURES MEDICAL DECISION MAKING AND PLAN OF CARE Last vitals BP 126/75 | Pulse 95 | Temp(Src) 98.6 F (37 C) (Oral) [...] Dose Rate Site Medication Order MAR Action 01/07/2009 10:49 PM CDT 60 mg Arm, Lef t Upper ketorolac (TORADOL) injection 60 mg Given 60 mg, IM, ONE TIME ONLY, 1 dose, Yeni 01/07/09 at 2245, Routine 01/07/2009 10:50 PM CDT 25 mg Arm, Rig ht Upper promethazine (PHENERGAN) injection 25 mg Given 25 mg, IM, ONE TIME ONLY, 1 dose, Yeni 01/07/09 at 2245, Routine documented in this encounter
--- OUTSIDE RECORDS SUMMARY | 2019-10-21 18:40 | XMS REPORT | Encounter Summary ---
Author Author [facility] Organization [facility] Address Unknown Phone Unavailable Care Team Providers Care Wind Site Manager Name Role Phone PCP Unavailable Reason for Visit * Reason Comments Referral ENT Encounter Details Care Team Description Date Type Department Maurice Durbin MD [address] [place] [address] Referral (ENT) 12/30/2008 Telephone [facility] Primar y Care [place] [address] [place] [address] Social History Date Tobacco Use [...] * Telephone Encounter - Patt Malik - 12/30/2008 11:[address] Durbin wants pt to see Dr Espino for a consult for her hoarseness. I got her set up to see Dr Espino in [place] on 01/18/09 at 1:00 pm. I gave the pt the ap pointment card in the office documented in this encounter Plan of Treatment Not on filedocumented as of this encounter Visit Diagnoses Not on filedocumented in this encounter
--- OUTSIDE RECORDS SUMMARY | 2019-10-21 18:40 | XMS REPORT | Encounter Summary ---
Author Author [facility] Organization [facility] Address Unknown Phone Unavailable Care Team Providers Care Psychiatric Assistant Name Role Phone PCP Unavailable Reason for Visit * Reason Comments Medication Refill Encounter Details Care Team Description Date Type Department Maurice Durbin MD [address] [place] [address] 01/13/2009 Refill [facility] Primar y Care [place] [address] [place] [address] Social History Date Tobacco Use [...]
--- OUTSIDE RECORDS SUMMARY | 2019-10-21 18:40 | XMS REPORT | Encounter Summary ---
Author Author [facility] Organization [facility] Address Unknown Phone Unavailable Care Team Providers Care Entry Level Manufacturing Engineer Name Role Phone PCP Unavailable Reason for Visit * Reason Comments Mass pt says she has a mass unde r her arm, she says it is really painful Encounter Details Care Team Description Date Type Department Maurice Durbin MD [address] [place] [address] Abscess (Primary Dx) 01/19/2009 Office Visit [facility] Primar y Care [place] [address] [place] [address] Social History Date Tobacco Use [...] Reading Time Taken Comments Vital Sign 110/60 01/19/2009 10:41 AM CDT Blood Pressure 96 01/19/2009 10:41 AM CDT Pulse 36.3 C (97.4 F) 01/19/2009 10:41 AM CDT Temperature - - Respiratory Rate - - Oxygen Saturation - - Inhaled Oxygen Concentration - - Weight - - Height - - Body Mass Index documented in this encounter Progress Notes * Maurice Durbin MD - 01/25/2009 6:59 PM CDT Ayden Odom is a 38 y.o. female complains of mass under the left axillary area has been there for 3 days has drained yellow pus Findings are as above large area noted Area prepped, 11 blade scalpel inserted with purulent and sebaceous material ret urned. Bacterial culture swab obtained. Wound dressed. Encounter Diagnoses Code Name Primary? Qualifier 682.9J Abscess Yes Plan: WOUND CULTURE WITH GRAM STAIN documented in this encounter Plan of Treatment Not on filedocumented as of this encounter Results * WOUND CULTURE WITH GRAM STAIN (01/19/2009 12:00 PM CDT) WOUND CULTURE STAPHYLOCOCCUS AUREUS PRESENT [facility] IS NOT MRSA CENTER [facility] ORGANISM STAPHYLOCOCCUS AUREUS (A) INTERFACE SYSTEM WOUND CULTURE QUANTITY OF ORGANISM: MODERATE INTERF NOE GROWTH SYSTEM Specimen Specimen from abscess (specimen) - Axilla, right Antibiotic Method Susceptibility Organism CIPROFLOXACIN DOMENICA MCG/ML [...] <=10: Susceptible Staphylococcus aureus VANCOMYCIN DOMENICA MCG/ML 1: Susceptible Staphylococcus aureus Comment: CLEMENTE ROBISON ACCT#[id number], ,,,, Performing Organization Address City/State/Zipcode Ph one Number INTERFACE SYSTEM [facility] ALYSA GERARDO# [id number] Milly RIOJAS [address] [address] [place] [address] INTERFACE SYSTEM Refer to clinic/hospital department documented in this encounter Visit Diagnoses Diagnosis Abscess - Primary Cellulitis and abscess of unspecified s ite documented in this encounter
--- OUTSIDE RECORDS SUMMARY | 2019-10-21 18:40 | XMS REPORT | Encounter Summary ---
Author Author [facility] Organization [facility] Address Unknown Phone Unavailable Care Team Providers Care Center Machine Operator Name Role Phone PCP Unavailable Reason for Referral * Consult, Test & Treat (Routine) Referred By Contact Referred To Contact Status Reason Specialty Diagnoses / Procedures Maurice Durbin MD [address] [place] [address] Jaron Espino MD [address] [place] [id number] Closed Diagnoses Hoarse Reason for Visit * Reason Comments Headache pt says she has had a heada mercedes since this weekend Hoarse Pt says she has not had a v oice since 12/19 Knee Pain left knee pain pt states Choking pt says that she chokes eas [place] when she drinks and eats Encounter Details Care Team Description Date Type Department Maurice Durbin MD [address] [place] [address] Migraine; Fever; Hoarse 12/30/2008 Office Visit [facility] Primar y Care [place] [address] [place] [address] Social History Date Tobacco [...] Reading Time Taken Comments Vital Sign 100/74 12/30/2008 10:24 AM CDT Blood Pressure 108 12/30/2008 10:24 AM CDT Pulse 37.9 C (100.3 F) 12/30/2008 10:24 AM CDT Temperature - - Respiratory Rate - - Oxygen Saturation - - Inhaled Oxygen Concentration - - Weight - - Height - - Body Mass Index documented in this encounter Progress Notes * Maurice Durbin MD - 12/31/2008 12:49 PM CDT Ayden Odom is a 38 y.o. female Chief Complaint Patient presents with Headache pt says she has had a headache since this weekend Hoarse Pt says she has not had a voice since 12/19 Knee Pain left knee pain pt states Choking pt says that she chokes easily when she drinks and eats still with knee pain has not gotten better hoarseness of voice for the last 2 w eeks with no improvement no fever chills rigor Headache for the last 3 days with no improvement Review of Systems - General ROS: negative for weight changes, fever ROS neg except for the above mentioned I have reviewed the patient's past medical, surgical and family history [facility] and updated the computerized patient record. OBJECTIVE: Physical Exam: BP 100/74 | Pulse 108 | Temp(Src) 100.3 F (37.9 C) (Tympanic) | LMP Hysterec malena General appearance: alert, in no distress Head: atraumatic, Normocephalic, without obvious abnormality Eyes: conjunctivae/corneas clear. PERRL, EOM's intact. Ears: normal TM's and external ear canals AU Nose: Nares normal. Septum midline. Mucosa normal. No drainage or sinus tenderne ss. Throat: Lips, mucosa (moist), and tongue normal. Teeth and gums normal Neck: supple, symmetrical, trachea midline, no adenopathy, thyroid: not enlarged , symmetric, no tenderness/mass/nodules, no carotid bruit and no JVD Lungs: clear to auscultation bilaterally, normal respiratory [...] normal tone ASSESSMENT: Encounter Diagnoses Name Primary? Migraine Fever Hoarse PLAN: Orders Placed This Encounter Ketorolac 30 mg/ml injection Promethazine 25 mg/ml injection Amb referral to ent Sumatriptan 50 mg tab Ketorolac 30 mg/ml injection Promethazine 25 mg/ml injection documented in this encounter Plan of Treatment Order Schedule Name Type Priority Associated Diag noses Ordered: 12/30/2008 AMB REFERRAL TO ENT Outpatient Routine Hoarse Referral documented as of this encounter Visit Diagnoses Diagnosis Migraine Migraine, unspecified, without mention of intractable migraine without mention of status migrainosus Fever Fever, unspecified Hoarse Dysphonia documented in this encounter"
--- OUTSIDE RECORDS SUMMARY | 2019-10-21 18:40 | XMS REPORT | Encounter Summary ---
Author Author [facility] Organization [facility] Address Unknown Phone Unavailable Care Team Providers Care Triple Valve Tester Name Role Phone PCP Unavailable Encounter Details Care Team Description Date Type Department [facility], Lab Schedule 01/19/2009 Hospital [facility] General Encounter Laboratory Services [address] [address] Social History Date Tobacco Use [...] Before meals, at bedtime, and as needed 01/19/2009 01/26/2009 trimethoprim-sulfamethoxa Take 1 Tab by 14 Tab 0 zole (BACTRIM DS) 160-800 mouth 2 times mg Oral Tab daily for 7 days. 01/19/2009 02/26/2009 oxycodone CR (OXYCONTIN) Take 1 [...] mouth daily XR) 30 mg Oral Cp24 paper hanger. adhd 12/17/2008 03/12/2009 lorazepam (ATIVAN) 1 mg Take [...] Associated Diag nosis WOUND CULTURE WITH GRAM Routine 01/19/2009 Absces s STAIN 12:00 PM CDT documented in this encounter Results * WOUND CULTURE WITH GRAM STAIN (01/19/2009 12:00 PM CDT) WOUND CULTURE STAPHYLOCOCCUS AUREUS PRESENT [facility] IS NOT MRSA [facility] LAB ORGANISM STAPHYLOCOCCUS AUREUS (A) INTERFACE SYSTEM WOUND [...] 1: Susceptible Staphylococcus aureus Comment: CLEMENTE ROBISON ACCT#[id number], ,,,, Performing Organization Address City/State/Zipcode Ph one Number INTERFACE SYSTEM [facility] AKIN# [id number] Milly RIOJAS [address] INTERFACE SYSTEM Refer to clinic/hospital department documented in this encounter Visit Diagnoses Diagnosis Abscess Cellulitis and abscess of unspecified s ite documented in this encounter
--- OUTSIDE RECORDS SUMMARY | 2019-10-21 18:40 | XMS REPORT | Encounter Summary ---
Author Author [facility] Organization [facility] Address Unknown Phone Unavailable Care Team Providers Care Screed Person Name Role Phone PCP Unavailable Reason for Visit * Reason Comments Medication Refill Encounter Details Care Team Description Date Type Department Maurice Durbin MD [address] [place] [address] 12/25/2008 Refill [facility] Primar y Care [place] [address] [place] [address] Social History Date Tobacco Use [...]
--- OUTSIDE RECORDS SUMMARY | 2019-10-21 18:40 | XMS REPORT | Encounter Summary ---
Author Author [facility] Organization [facility] Address Unknown Phone Unavailable Care Team Providers Care Shingle Sawyer Name Role Phone PCP Unavailable Reason for Visit * Reason Comments Headache pt said she was in ER last night for headache and it is starting to come back this morning, pt says when she has headache she feels like her head is burning and Encounter Details Care Team Description Date Type Department Maurice Durbin MD [address] [place] [address] Unspecified Migraine without Mention of Intractable Migraine (Primary Dx); Malaise and Fatigue 01/08/[address] [facility] Primar y Care [place] [address] [place] [address] Social History Date Tobacco Use [...] Reading Time Taken Comments Vital Sign 100/70 01/08/2009 10:40 AM CDT Blood Pressure 78 01/08/2009 10:40 AM CDT Pulse 36.4 C (97.6 F) 01/08/2009 10:40 AM CDT Temperature - - Respiratory Rate - - Oxygen Saturation - - Inhaled Oxygen Concentration - - Weight - - Height - - Body Mass Index documented in this encounter Progress Notes * Maurice Durbin MD - 01/11/2009 12:44 PM CDT HISTORY OF PRESENT ILLNESS Ayden Odom, a 38 y.o. female. Headache This is a chronic problem. The pain is located in the bilateral region. The pain is at a severity of 8/10. Associated symptoms include malaise/fatigue. Pertinent negatives include no anorexia, no fever, no chest pressure, no near-syncope, no orthopnea, no palpitations, no syncope, no shortness of breath, no nausea and no vomiting. Chief Complaint Patient presents with Headache pt said she was in ER last night for headache and it is starting to come back this morning, pt says when she has headache she feels like her head is burning a nd REVIEW OF SYSTEMS Review of Systems Constitutional: Positive for malaise/fatigue. Negative for fever. HENT: Negative for ear pain and nosebleeds. Eyes: Negative for blurred vision and double vision. Respiratory: Negative for cough, hemoptysis, sputum production and shortness of breath. Cardiovascular: Negative for chest pain, palpitations, orthopnea and syncope. Gastrointestinal: Negative for heartburn, nausea, vomiting and abdominal pain. Genitourinary: Negative for dysuria, urgency and frequency. Musculoskeletal: Negative for myalgias. Skin: Negative for rash. Neurological: Negative for dizziness, tingling, tremors and headaches. Endo/Heme/Allergies: Does not bruise/bleed easily. Psychiatric/Behavioral: Negative for depression. PHYSICAL EXAM BP 100/70 | Pulse 78 | Temp(Src) 97.6 F (36.4 C) (Tympanic) | LMP Hysterecto my Physical Exam Constitutional: She appears well-developed and well-nourished. HENT: Head: Normocephalic. Eyes: Conjunctivae are normal. Pupils are equal, round, and reactive to light. Neck: Normal range of motion. Cardiovascular: Normal rate, regular rhythm, normal heart sounds and intact dist al pulses. Pulmonary/Chest: Effort normal and breath sounds normal. Abdominal: Soft. Bowel sounds are normal. ASSESSMENT and PLAN: Encounter Diagnoses Code Name Primary? Qualifier 346.90 Unspecified Migraine without Mention of Intractable Migraine Yes Plan: KETOROLAC 30 MG/ML INJECTION 780.79Z Malaise and Fatigue Plan: CBC WITH DIFFERENTIAL, COMPREHENSIVE METABOLIC PANEL, TSH, T4 FREE Orders Placed This Encounter Ketorolac 30 mg/ml injection Cbc with differential Comprehensive metabolic panel Tsh T4 free Sumatriptan-naproxen 85 mg-500 mg tab Ketorolac 30 mg/ml injection documented in this encounter Plan of Treatment Not on filedocumented as of this encounter Results * T4 FREE (01/08/2009 11:07 AM CDT) T4 FREE 1.44Comment: RICKIKS 0.59 - 1.5 ng/d l [facility] ACCT#[id number], ,,,, CENTER [facility] Specimen Blood specimen (specimen) Performing Organization Address City/[facility] Ph one Number INTERFACE SYSTEM [facility] ALYSA BENTONIA# [id number] Milly RIOJAS [id number] [address] [place] [address] * TSH (01/08/2009 11:07 AM CDT) TSH 0.65Comment: [facility] 0.34 - 4.82 uIU /ml [facility] ACCT#[id number], ,,,, CENTER [facility] RE[facility] Specimen Blood specimen (specimen) Performing Organization Address City/[facility] Ph one Number INTERFACE SYSTEM [facility] ALYSA BENTONIA# [id number] Milly RIOJAS [id number] [address] [place] [address] * COMPREHENSIVE METABOLIC PANEL (01/08/2009 11:07 AM CDT) GLUCOSE 104 70 - 110 mg/dl [facility] BUN 20.0 7 - 20 mg/dl [facility] CREATININE 1.10 (H) 0.6 - 1.0 mg/dl [facility] BUN/CREAT RATIO 18.2 10 - 20 [facility] RE[facility] GFR 60 >90 ml/min [facility] SODIUM 140 135 - 145 mmol/L [facility] POTASSIUM 3.5 3.3 - 4.8 mmol/L [facility] CHLORIDE 106 98 - 107 mmol/L [facility] CO2 25.5 22 - 31 mmol/L [facility] ANION GAP 12 4 - 20 [facility] CALCIUM 8.9 8.5 - 10.1 mg/dl [facility] ALBUMIN 3.6 3.4 - 5.0 g/dl [facility] TOTAL PROTEIN 7.3 6.4 - 8.2 g/dl [facility] GLOBULIN (CALC) 3.7 [facility] ALBUMIN/GLOBULI 1.0 [facility] RATIO [place] [facility] BILIRUBIN TOTAL 0.2 <1.1 mg/dl [facility] ALKALINE 156 (H) 50 - 136 IU/L [facility] PHOSPHATASE [place] [facility] AST 17 10 - 40 IU/L [facility] ALT 47Comment: [facility] 25 - 70 IU/L [place] ACCT#[id number], ,,,, CENTER [facility] Specimen Blood specimen (specimen) Performing Organization Address City/State/Zipcode Ph one Number INTERFACE SYSTEM [facility] ALYSA B[place]# [id number] Milly RIOJAS [id number] [facility] [address] [facility] * CBC WITH DIFFERENTIAL (01/08/2009 11:07 AM CDT) WBC 6.84 3.0 - 10.4 x10E3 [facility] RBC 4.33 3.77 - 4.97 x10E6 [facility] HEMOGLOBIN 13.8 11.9 - 15.0 g/dL [facility] HEMATOCRIT 40.3 34.4 - 43.6 % [facility] MCV 93.0 79 - 100 fL [facility] MCH 31.9 28 - 34 pg [facility] MCHC 34.3 33 - 36 g/dL [facility] RDW 13.6 11.5 - 15.1 % [facility] PLATELETS 185 148 - 408 x10E3 [facility] MPV 8.3 7.4 - 10.6 fL [facility] NEUTROPHILS 60.5 43 - 73 % [facility] LYMPHOCYTES 31.3 19 - 47 % [facility] MONOCYTES 5.4 3 - 9 % [facility] EOSINOPHILS 2.5 0 - 6 % [facility] BASOPHILS 0.3 0 - 1.2 % [facility] NEUTROPHIL 4.14 1.3 - 7.6 x10E3 [facility] LYMPHOCYTE 2.14 0.6 - 4.9 x10E3 [facility] MONOCYTE 0.37 0.1 - 0.9 x10E3 [facility] EOSINOPHIL 0.17 0.0 - 0.2 x10E3 [facility] BASOPHILS 0.02Comment: [facility] 0 - 0.1 x10E3 [facility] ACCT#[id number], ,,,, CENTER [facility] Specimen Blood specimen (specimen) Performing Organization Address City/State/Zipcode Ph one Number INTERFACE SYSTEM [facility] ALYSA BENTONIA# [id number] Milly RIOJAS S [address] [facility] [address] documented in this encounter Visit Diagnoses Diagnosis Migraine, unspecified, without mention of intractable migraine without mention of status migrainosus - Primary Malaise and fatigue Other malaise and fatigue documented in this encounter"
--- OUTSIDE RECORDS SUMMARY | 2019-10-21 18:40 | XMS REPORT | Encounter Summary ---
Author Author [facility] Organization [facility] Address Unknown Phone Unavailable Care Team Providers Care Autographer Name Role Phone PCP Unavailable Reason for Visit * Reason Comments Medication Refill Encounter Details Care Team Description Date Type Department Maurice Durbin MD [address] [place] [address] 12/28/2008 Refill [facility] Primar y Care [place] [address] [place] [address] Social History Date Tobacco Use [...]
--- OUTSIDE RECORDS SUMMARY | 2019-10-21 18:41 | XMS REPORT | Encounter Summary ---
Author Author [facility] Organization [facility] Address Unknown Phone Unavailable Care Team Providers Care Rail Loader Name Role Phone PCP Unavailable Reason for Visit * Reason Comments Question Encounter Details Care Team Description Date Type Department Julia Land MD [address] [place] [address] Question 12/03/2008 Telephone [facility] Primar y Care [place] [address] [place] [address] Social History Date Tobacco Use [...] * Telephone Encounter - Patt Malik - 12/03/2008 5:11 PM CDT Pt called in saying that she had fallen and was hurting and knee was swollen and face hurt. I told her that she should probably go to ER. documented in this encounter Plan of Treatment Not on filedocumented as of this encounter Visit Diagnoses Not on filedocumented in this encounter
--- OUTSIDE RECORDS SUMMARY | 2019-10-21 18:41 | XMS REPORT | Encounter Summary ---
Author Author [facility] Organization [facility] Address Unknown Phone Unavailable Care Team Providers Care Wholesale Account Manager Name Role Phone PCP Unavailable Reason for Visit * Reason Comments Medication Refill Encounter Details Care Team Description Date Type Department Rehana Valdivia 12/10/2008 Refill [facility] Primar y Care [place] [address] [place] [address] Social History Date Tobacco Use Types Packs/Day [...] * Telephone Encounter - Rehana Valdivia - 12/10/2008 1:05 PM CDT Patient called for refill on oxycodone cr 40 mg and percocet 10/325 mg #90, per dr alicea retail client solutions analyst patient may have #10 of oxycodone cr 40 mg and denied percoce t since patient had #90 on 11/13/08 and # 30 on 12/03/08 from er. Patient needs to f/u with dr mayer for further refills on sunday documented in this encounter Plan of Treatment Not on filedocumented as of this encounter Visit Diagnoses Not on filedocumented in this encounter
--- OUTSIDE RECORDS SUMMARY | 2019-10-21 18:41 | XMS REPORT | Encounter Summary ---
Author Author [facility] Organization [facility] Address Unknown Phone Unavailable Care Team Providers Care Laser Engraver Name Role Phone PCP Unavailable Reason for Visit * Reason Comments Knee Pain pt says that her left knee hurts Migraine pt says she is having migra teri at least twice a week, she says she was in bed all day on sunday Hand Pain pt says that her hand are p ainful and she is having trouble gripping objects Medication Refill pt says that she out of all her pain killers, she said when she was taking her percocet she dropped them in the to ilet Encounter Details Care Team Description Date Type Department Maurice Durbin MD [address] [place] [address] Migraine (Primary Dx) 12/17/2008 Office Visit [facility] Primar y Care [place] [address] [place] [address] Social History Date Tobacco Use [...] Signs Reading Time Taken Comments Vital Sign 98/62 12/17/2008 8:53 AM CDT Blood Pressure 72 12/17/2008 8:53 AM CDT Pulse 36.6 C (97.9 F) 12/17/2008 8:53 AM CDT Temperature - - Respiratory Rate - - Oxygen Saturation - - Inhaled Oxygen Concentration - - Weight - - Height - - Body Mass Index documented in this encounter Progress Notes * Maurice Durbin MD - 12/17/2008 5:04 PM CDT Ayden Odom is a 38 y.o. female Chief Complaint Patient presents with Knee Pain pt says that her left knee hurts Migraine pt says she is having migraines at least twice a week, she says she was in bed all day on sunday Hand Pain pt says that her hand are painful and she is having trouble gripping objects Medication Refill pt says that she out of all her pain killers, she said when she was taking her percocet she dropped them in the toilet Has not had any improvement explained that we will not be refilling her narcotic early as she did not take care of them neuorology consult as she is still with worsening of the headaches ROS neg except for the above mentioned I have reviewed the patient's past medical, surgical and family history in [facility] and updated the computerized patient record. OBJECTIVE: Physical Exam: BP 98/62 | Pulse 72 | Temp(Src) 97.9 F (36.6 C) (Tympanic) | LMP Hysterectom y General appearance: alert, in no distress Lungs: [...] thighs, normal strength, normal tone ASSESSMENT: Encounter Diagnosis Name Primary? Migraine Yes PLAN: Orders Placed This Encounter Oxycodone sr 60 mg 12 hr tab DISCONTD: Promethazine 12.5 mg tab Lorazepam 1 mg tab Promethazine 12.5 mg tab documented in this encounter Plan of Treatment Not on filedocumented as of this encounter Visit Diagnoses Diagnosis Migraine - Primary Migraine, unspecified, without mention of intractable migraine without mention of status migrainosus documented in this encounter"
--- OUTSIDE RECORDS SUMMARY | 2019-10-21 18:41 | XMS REPORT | Encounter Summary ---
Author Author [facility] Organization [facility] Address Unknown Phone Unavailable Care Team Providers Care Operating Systems Specialist Name Role Phone PCP Unavailable Reason for Visit * Reason Comments Advice Only Encounter Details Care Team Description Date Type Department Maurice Durbin MD [address] [place] [address] Advice Only 12/18/2008 Telephone [facility] Primar y Care Driver [address] [place] [address] Social History Date Tobacco Use [...] * Telephone Encounter - Patt Malik - 12/18/2008 2:40 PM CDT Ayden called and said she was feeling weird and that she could not see straigh t. She said she was having SOB. I talked to Dr Drubin and he said that she shou ld go to ER. I called Ayden and let her know that the ER was where she needed to go. documented in this encounter Plan of Treatment Not on filedocumented as of this encounter Visit Diagnoses Not on filedocumented in this encounter
--- OUTSIDE RECORDS SUMMARY | 2019-10-21 18:41 | XMS REPORT | Encounter Summary ---
Author Author [facility] Organization [facility] Address Unknown Phone Unavailable Care Team Providers Care Metal Cnc Operator Name Role Phone PCP Unavailable Reason for Visit * Reason Comments Medication Refill Encounter Details Care Team Description Date Type Department Maurice Durbin MD [address] [place] [address] 12/02/2008 Refill [facility] Primar y Care Una [address] [place] [address] Social History Date Tobacco Use [...]
--- OUTSIDE RECORDS SUMMARY | 2019-10-21 18:41 | XMS REPORT | Encounter Summary ---
Author Author [facility] Organization [facility] Address Unknown Phone Unavailable Care Team Providers Care Shipyard Helper Name Role Phone PCP Unavailable Reason for Referral * Referred By Contact Referred To Contact Status Reason Specialty Diagnoses / Procedures Diagnoses Muscle weakness of lower extremity Lower extremity pain P rocedures MRI CERVICAL WO CONTRAST Reason for Visit * Consult, Test & Treat (Routine) Referred By Contact Referred To Contact Status Reason Specialty Diagnoses / Procedures Robby Rajan APRN [address] [place] [address] [facility] Mri [address] [place] [address] Closed MRI / Radiology Diagnoses MRI C-SPINE W/O TATE DX WEAKNESS AND PAIN LOWER EXTREMITY DR DANTE Chapman rocedures MRI SPINE WITH OR WO Encounter Details Care Team Description Date Type Department Robby Rajan APRN [address] [place] [address] 12/17/2008 [facility] F or[facility] Encounter [facility] [address] [place] [address] Social History Date Tobacco Use [...] mouth daily XR) 30 mg Oral Cp24 hot oiler. adhd 11/27/2008 03/29/2009 zolpidem (AMBIEN) 10 mg [...] Form - Aok Scanning, Amb Physician - 01/29/2009 9:29 AM CDT documented in this encounter Plan of Treatment Not on filedocumented as of this encounter Procedures Comments Procedure Name Priority Date/Time Associated Diag nosis MRI CERVICAL WO CONTRAST Routine 12/17/2008 Muscl e Weakness of Lower 1:05 PM CDT Extremity Lower Extremity Pain documented in this encounter Results * MRI CERVICAL WO CONTRAST (12/17/2008 1:05 PM CDT) Specimen Impressions Performed At : Mild degenerative change involving the cervical spine with disc bulging in the mid cervical spine as described abo ve without evidence of spinal stenosis or disc protrusion identified. Narrative Performed At Diagnosis: MUSCLE WEAKNESS OF LOWER EXT REMITY, LOWER EXTREMITY PAIN MRI OF THE CERVICAL SPINE: INDICATIONS: NECK PAIN. TECHNIQUE: Sagittal T1, T2-weighted a nd inversion recovery weighted images were obtained at 3 mm intervals. Coronal STIR weighted images were obtained at 3 mm intervals and axial T1 and T2-weighted images were obtained at 3 mm intervals. FINDINGS: The cervical vertebral body height and alignment appear maintained. The cervical cord appears normal in thickne ss and signal intensity. No evidence of Chiari type malformation or intracanalicular spinal mass or abnormal signal intensity within the brown bstance of the cervical cord. There are mild degenerative disc change s present. There is mild posterior disc bulging noted at C3-4 and C4-5. No areas of disc protrusion or spinal stenosis are identified. Procedure Note Macho Barrios MD - 12/17/2008 3:26 PM CDT Diagnosis: MUSCLE WEAKNESS OF LOWER EXTREMITY, LOWER EXTREMITY PAIN MRI OF THE CERVICAL SPINE: INDICATIONS: NECK PAIN. TECHNIQUE: Sagittal T1, T2-weighted and inversion recovery weighted images were obtained at 3 mm intervals. Coronal STIR weighted images were obtained at 3 mm intervals and axial T1 and T2-weighted images were obtained at 3 mm intervals. FINDINGS: The cervical vertebral body height and alignment appear maintained. The cervical cord appears normal in thickness and signal intensity. No evidence of Chiari type malformation or intracanalicular spinal mass or abnormal signal intensity within the substance of the cervical cord. There are mild degenerative disc changes present. There is mild posterior disc bulging noted at C3-4 and C4-5. No areas of disc protrusion or spinal stenosis are identified. IMPRESSION: Mild degenerative change involving the cervical spine with disc bulging in the mid cervical spine as described above without evidence of spinal stenosis or disc protrusion identified. documented in this encounter Visit Diagnoses Diagnosis Muscle weakness of lower extremity Muscle weakness (generalized) Lower extremity pain Pain in limb documented in this encounter
--- OUTSIDE RECORDS SUMMARY | 2019-10-21 18:41 | XMS REPORT | Encounter Summary ---
Author Author [facility] Organization [facility] Address Unknown Phone Unavailable Care Team Providers Care Rpg Programmer Analyst Name Role Phone PCP Unavailable Reason for Visit * Reason Comments Medication Refill Encounter Details Care Team Description Date Type Department Maurice Durbin MD [address] [place] [address] 11/27/2008 Refill [facility] Primar y Care [place] [address] [place] [address] Social History Date Tobacco Use [...]
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
--- OUTSIDE RECORDS SUMMARY | 2019-10-21 18:41 | XMS REPORT | Encounter Summary ---
Author Author [facility] Organization [facility] Address Unknown Phone Unavailable Care Team Providers Care Supervisor Filling And Packing Name Role Phone PCP Unavailable Reason for Visit * Consult, Test & Treat (Routine) Referred By Contact Referred To Contact Status Reason Specialty Diagnoses / Procedures Robby Rajan, CONSTANTIN [address] [place] [address] [facility] [address] [place] [address] Closed MRI / Radiology Diagnoses MRI C-SPINE W/O TATE DX WEAKNESS AND PAIN LOWER EXTREMITY DR DANTE sternures MRI SPINE WITH OR WO Encounter Details Care Team Description Date Type Department Robby Rajan, CONSTANTIN [address] [place] [address] 12/17/2008 [facility] F ort Encounter [address] [address] Social History Date Tobacco Use [...] [facility]K ACTIVE [facility] by See Admin [facility]. 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 No are as of disc protrusion or spinal stenosis are identified. Narrative Performed At Diagnosis: MUSCLE WEAKNESS OF LOWER EXT REMITY, LOWER EXTREMITY PAIN MRI OF THE LUMBAR SPINE: INDICATIONS: BACK PAIN. Comparison is made with the prior plain film examination of 12-03-08 and prior MRI examination of 12-24-07. T1 and T2-weighted and inversion recovery sagittal images were obtained at 4 mm intervals. Axial T1 and T2-weighted images were obtained at 4 m m intervals. FINDINGS: Again demonstrated is artifact from an IVC filter. The lumbar vertebral body height and alignment appear mainta ined. There are mild degenerative disc changes at L3-4. There is no anali dence of a marrow replacement process or disc protrusion or spinal st enosis. The conus medullaris is in a normal position. No intracanalicula r spinal masses are seen. There is mild posterior disc bulging at L4-5 and L5-S1 with mild disc space narrowing noted at L5-S1. Procedure Note Macho Barrios MD - 12/17/2008 3:26 PM CDT Diagnosis: MUSCLE WEAKNESS OF LOWER EXTREMITY, LOWER EXTREMITY PAIN MRI OF THE LUMBAR SPINE: INDICATIONS: BACK PAIN. Comparison is made with the prior plain film examination of 12-03-08 and prior MRI examination of 12-24-07. T1 and T2-weighted and inversion recovery sagittal images were obtained at 4 mm intervals. Axial T1 and T2-weighted images were obtained at 4 mm intervals. FINDINGS: Again demonstrated is artifact from an IVC filter. The lumbar vertebral body height and alignment appear maintained. There are mild degenerative disc changes at L3-4. There is no evidence of a marrow replacement process or disc protrusion or spinal stenosis. The conus medullaris is in a normal position. No intracanalicular spinal masses are seen. There is mild posterior disc bulging at L4-5 and L5-S1 with mild disc space narrowing noted at L5-S1. IMPRESSION: Degenerative disc change as described with mild loss of signal intensity and bulging at L3-4 and L5-S1. No areas of disc protrusion or spinal stenosis are identified. documented in this encounter Visit Diagnoses Not on filedocumented in this encounter
--- OUTSIDE RECORDS SUMMARY | 2019-10-21 18:41 | XMS REPORT | Encounter Summary ---
Author Author [facility] Organization [facility] Address Unknown Phone Unavailable Care Team Providers Care Director Funeral Name Role Phone PCP Unavailable Reason for Referral * Referred By Contact Referred To Contact Status Reason Specialty Diagnoses / Procedures Diagnoses Muscle weakness of lower extremity Lower extremity pain P rocedures MRI LUMBAR WO CONTRAST Reason for Visit * Consult, Test & Treat (Routine) Referred By Contact Referred To Contact Status Reason Specialty Diagnoses / Procedures Robby Rajan APRN [address] [place] [address] [facility] [address] [place] [address] Closed MRI / Radiology Diagnoses MRI C-SPINE W/O TATE DX WEAKNESS AND PAIN LOWER EXTREMITY DR DANTE Chapman rocedures MRI SPINE WITH OR WO Encounter Details Care Team Description Date Type Department Robby Rajan APRN [address] [place] [address] Canceled (Patient Requested) 12/17/2008 [facility] F ort Encounter [address] [address] Social History Date Tobacco [...] mouth daily XR) 30 mg 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
--- OUTSIDE RECORDS SUMMARY | 2019-10-21 18:41 | XMS REPORT | Encounter Summary ---
Author Author [facility] Organization [facility] Address Unknown Phone Unavailable Care Team Providers Care Tunneller Name Role Phone PCP Unavailable Reason for Visit * Reason Comments Follow Up pt says she is very tired a nd all she is doing is sleeping Shortness of Breath pt says she is having a lot shortness of breath, she says she is using her 02 during the day off and on Encounter Details Care Team Description Date Type Department Maurice Durbin MD [address] [place] [address] ADHD; COPD 11/27/2008 Office Visit [facility] Primar y Care [place] [address] [place] [address] Social History Date Tobacco Use [...] Signs Reading Time Taken Comments Vital Sign 102/72 11/27/2008 1:40 PM CDT Blood Pressure 82 11/27/2008 1:40 PM CDT Pulse 38.2 C (100.8 F) 11/27/2008 1:40 PM CDT Temperature - - Respiratory Rate - - Oxygen Saturation - - Inhaled Oxygen Concentration - - Weight - - Height - - Body Mass Index documented in this encounter Progress Notes * Maurice Durbin MD - 11/30/2008 12:34 PM CDT Ayden Odom is a 38 y.o. female Chief Complaint Patient presents with Follow Up pt says she is very tired and all she is doing is sleeping Shortness of Breath pt says she is having a lot shortness of breath, she says she is using her 02 during the day off and on Still with shortness of breath still smoking tired more than usual labs stable ROS neg except for the above mentioned I have reviewed the patient's past medical, surgical and family history in [facility] and updated the computerized patient record. OBJECTIVE: Physical Exam: BP 102/72 | Pulse 82 | Temp(Src) 100.8 F (38.2 C) (Tympanic) | LMP Hysterect lily General appearance: alert, in no distress Lungs: occasional wheexe fairl respiratory effort Heart: normal rate, regular rhythm, normal S1, S2, no murmurs, rubs, clicks or g allops Abdomen: Soft, non-tender. Bowel sounds normal. No masses, no organomegaly. ASSESSMENT: Encounter Diagnoses Name Primary? ADHD COPD PLAN: Orders Placed This Encounter Amoxicillin-pot clavulanate 875 mg-125 mg tab Fluconazole 150 mg tab Amphetamine-dextroamphetamine sr 30 mg 24 hr cap documented in this encounter Plan of Treatment Not on filedocumented as of this encounter Visit Diagnoses Diagnosis ADHD Attention deficit disorder with hyperac tivity COPD Chronic airway obstruction, not elsewhe re classified documented in this encounter"
--- OUTSIDE RECORDS SUMMARY | 2019-10-21 18:41 | XMS REPORT | Encounter Summary ---
Author Author [facility] Organization [facility] Address Unknown Phone Unavailable Care Team Providers Care Airport Electrician Name Role Phone PCP Unavailable Reason for Visit * Reason Comments Headache times three days Blurred Vision started about 1340 today Neck Pain woke pt up this am at 1100 Encounter Details Care Team Description Date Type Department Headache 12/18/2008 Emergency [facility] Emergency Department [address] [phone] Social History Date Tobacco Use Types Packs/Day [...] Signs Reading Time Taken Comments Vital Sign 110/79 12/18/2008 4:24 PM CDT Blood Pressure 101 12/18/2008 4:24 PM CDT Pulse 37.2 C (98.9 F) 12/18/2008 3:42 PM CDT Temperature 16 12/18/2008 4:24 PM CDT Respiratory Rate 98% 12/18/2008 4:24 PM CDT Oxygen Saturation - - Inhaled Oxygen Concentration 129.3 kg (285 lb) 12/18/2008 3:42 PM CDT Weight 160 cm (5' 3") 12/18/2008 3:42 PM CDT Height 50.49 12/18/2008 3:42 PM CDT Body Mass Index documented in [...] Oral Cp24 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 adhd 11/27/2008 03/29/2009 zolpidem (AMBIEN) 10 mg [...] ED Notes * Ari Stanley Physician - 12/21/2008 2:47 PM CDT * Lakeisha Abdi RN - 12/18/2008 4:41 PM CDT Pt continues to sleep soundly. wanting to take pt home. Refused offer of assistance in wheeling pt to private auto. Pt awakens to rate pain at "a 3". * Lakeisha Abdi RN - 12/18/2008 4:24 PM CDT Pt rates pain "a 5, ok it's only a 4", then falls back to sleep snoring softly. Pt's concerned about pt's b/p being "a little high for her." Current b /p 110/70. * Lakeisha Abdi RN - 12/18/2008 4:19 PM CDT Pt wanting to go home. Reports that she needs to get home to make supper. Awar e that needed to make sure that she is not going to have a reaction to medicatio n given to her. states that pt wants to go home and rest where she can relax. * Emy Bran ARNP - 12/18/2008 4:14 PM CDT HISTORY OF PRESENT ILLNESS Ayden Odom, a 38 y.o. female presents to the ED with a Chief Complaint o f Headache, Blurred Vision and Neck Pain Patient is a 38 y.o. female presenting with headaches, blurred vision, and neck pain. The history is provided by the patient. Headache This is a new problem. The current episode started more than 2 days ago. The pro blem occurs constantly. The problem has not changed since onset. The headache is associated with bright light and loud noise. The pain is located in the right u nilateral region. The pain quality is described as throbbing. The pain is severe . The pain radiates to the right neck. Associated symptoms include nausea. Perti nent negatives include no fever, no near-syncope, no palpitations, no syncope, n o shortness of breath and no vomiting. She has tried oral narcotic analgesics fo r the symptoms. The treatment provided no relief. Blurred Vision Primary symptoms include dizziness. Primary symptoms include no focal weakness, no loss of sensation, no loss of balance and no speech change. This is a new pr oblem. The current episode started 3 to 5 hours ago. The problem has not changed since onset. There was no focality noted. There has been no fever. Associated s ymptoms include headaches. Pertinent negatives include no shortness of breath, n o chest pain, no vomiting, no altered mental status and no confusion. Neck Pain This is a new problem. The current episode started 3 to 5 hours ago. The problem occurs constantly. The problem has not changed since onset. The pain is associa ari with nothing. The pain is present in the generalized neck. The pain quality is described as aching. The pain does not radiate. The pain is severe. The sympt oms are worsened by position. Associated symptoms include photophobia and headac hes. Pertinent negatives include no chest pain, no syncope, no weight loss, no b owel incontinence, no bladder incontinence, no leg pain, no paresis, no tingling and no weakness. She has tried analgesics for the symptoms. The treatment provi ded no relief. REVIEW OF SYSTEMS Review of Systems Constitutional: Negative for fever and weight loss. HENT: Positive for neck pain. Eyes: Positive for blurred vision and photophobia. Negative for double vision, p ain, discharge and redness. Respiratory: Negative. Negative for cough and shortness of breath. Cardiovascular: Negative. Negative for chest pain, palpitations and syncope. Gastrointestinal: Positive for nausea. Negative for vomiting, abdominal pain, di arrhea and constipation. Genitourinary: Negative. Negative for bladder incontinence. Skin: Negative. Neurological: Positive for dizziness and headaches. Negative for tingling, tremo rs, sensory change, speech change, focal weakness, seizures, loss of consciousne ss and weakness. Psychiatric/Behavioral: Negative for confusion. PAST MEDICAL HISTORY [...] by mouth every 6 hours as needed. oxycodone-acetaminophen (PERCOCET) 10-325 mg Oral Tab Take 1 Tab by mouth ev ana lilia 6 hours as needed for Pain for 30 doses. citalopram (CELEXA) 40 mg Oral Tab Take 1 Tab by mouth daily. 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 adhd zolpidem (AMBIEN) 10 mg Oral Tab [...] Tab Take 1 Tab by mouth daily. Oxygen-Air Delivery Systems Misc Leisa Take 2 L/min by inhalation daily at be dtiva. ACCU-CHEK ACTIVE CARE Misc Kit by See Admin Instructions route. Before meals , at bedtime, and as needed LOVAZA 1 gram Oral Cap Take 1 Gram by mouth 3 times daily. DUONEB IN Take by inhalation every 6 hours. OXYCODONE HCL/ACETAMINOPHEN (OXYCODONE-ACETAMINOPHEN) 10-325 mg Oral Tab Abiodun e 1 Tab by mouth every 6 hours as needed. fluticasone (FLONASE) 50 mcg/Actuation Both Nostril SpSn Administer 2 Sprays in each nostril daily. PHYSICAL EXAM Initial Vitals BP 12/18/08 1542 120/79 mmHg Pulse 12/18/08 1542 109 Resp 12/18/08 1542 20 Temp 12/18/08 1542 98.9 F (37.2 C) Temp src 12/18/08 1542 Oral SpO2 12/18/08 1542 96 % Physical Exam Eyes: Conjunctivae and extraocular motions are normal. Pupils are equal, round, and reactive to light. Patient appears drowsy; unable to keep eyes open during exam. Neck: Trachea normal and normal range of motion. Neck supple. Spinous process te nderness and muscular tenderness present. No mass and no thyromegaly present. Holding neck stiffly to left side. Lymphadenopathy: She has no cervical adenopathy. Coding DIAGNOSTICS PROCEDURES IVF NS !L, Compazine, Toradol, Benadryl with relief of headache MEDICAL DECISION MAKING AND PLAN OF CARE Last vitals BP 110/79 | Pulse 101 | Temp(Src) 98.9 F (37.2 C) (Oral) | Resp 16 | Ht 5' 3" (1.6 m) | Wt 129.275 kg | SpO2 98% | LMP Hysterectomy CLINICAL IMPRESSION Encounter Diagnoses Code Name Primary? 784.0 Headache CASE DISCUSSED PATIENT COUNSELING Diagnostics reviewed and questions answered. Diagnosis, treatment options and p radha of care discussed with understanding verbalized. DISPOSITION, EDUCATION AND MEDICATION RECONCILIATION Medications reconciled. See after visit summary for patient education on discha rged patients. documented in this encounter Plan of Treatment Not on filedocumented as of this encounter Visit Diagnoses Diagnosis Headache(784.0) Headache documented in this encounter Administered Medications Action Date Dose Rate Site Medication Order MAR Action 12/18/2008 4:07 PM CDT 25 mg Hand, Le ft diphenhydrAMINE (BENADRYL) injection 25 Given mg 25 mg, IV, ONE TIME ONLY, 1 dose, 12/18/08 at 1600, Stat 12/18/2008 4:11 PM CDT 30 mg Hand, Le ft ketorolac (TORADOL) injection 30 mg Given 30 mg, IV, ONE TIME ONLY, 1 dose, Sun12/18/08 at 1600, Stat 12/18/2008 4:04 PM CDT 10 mg prochlorperazine (COMPAZINE) injection Given 10 mg 10 mg, IV, ONE TIME ONLY, 1 dose, Sun12/18/08 at 1600, Routine 12/18/2008 4:03 PM CDT 1,000 mL 1000 mL/hr sodium chloride 0.9% bolus solution Given 1,000 mL 1,000 mL, IV, ONE TIME ONLY, 1 dose, Fr i 12/18/08 at 1600, at 1,000 mL/hr, Administer over 60 Minutes, Stat documented in this encounter
--- OUTSIDE RECORDS SUMMARY | 2019-10-21 18:41 | XMS REPORT | Encounter Summary ---
Author Author [facility] Organization [facility] Address Unknown Phone Unavailable Care Team Providers Care Materials Handler Name Role Phone PCP Unavailable Reason for Visit * Reason Comments Knee Injury pain,swelling==taking metha done for pain-said percocet doesn't help Encounter Details Care Team Description Date Type Department Lavell Bautista MD [address] [place] [address] Lt Knee Pain (Primary Dx) 12/07/2008 Office Visit [facility] Primar y [address] [phone] Social History Date Tobacco Use [...] - - Blood Pressure - - Pulse 37.7 C (99.8 F) 12/07/2008 2:18 PM CDT Temperature - - Respiratory Rate - - Oxygen Saturation - - Inhaled Oxygen Concentration - - Weight - - Height - - Body Mass Index documented in this encounter Progress Notes * Lavell Bautsita MD - 12/07/2008 2:36 PM CDT HISTORY OF PRESENT ILLNESS Ayden Odom, a 38 y.o. female. Chief Complaint Patient presents with Knee Injury pain,swelling==taking methadone for pain-said percocet doesn't help HPI REVIEW OF SYSTEMS Review of Systems Musculoskeletal: Positive for joint pain (left knee pain post fall after twistin g and landing with leg bent underneath her continued pain and difficulty weight bearing). PHYSICAL EXAM Temp 99.8 F (37.7 C) | LMP Hysterectomy Physical Exam Musculoskeletal: She exhibits edema and tenderness (left knee almost impossible to examine but pt. noted with poor tolerance to pain bends to about 15 degrees f lexion and short of 180 degrees). ASSESSMENT and PLAN: Encounter Diagnoses Code Name Primary? Qualifier 719.46Y Lt Knee Pain Yes Plan: METHYLPREDNISOLONE 80 MG/ML INJECTION, DEXAMETHASONE SODIUM PHOSPHATE 4 M G/ML INJECTION ice elevation and unable to due mri due to rosio in left femur so will schedule w ith dr feng on 12/10 to consider exam via arthroscopy if he feels neces cecilio documented in this encounter Plan of Treatment Not on filedocumented as of this encounter Visit Diagnoses Diagnosis Lt knee pain - Primary Pain in joint, lower leg documented in this encounter"
--- OUTSIDE RECORDS SUMMARY | 2019-10-21 18:42 | XMS REPORT | Encounter Summary ---
Author Author [facility] Organization [facility] Address Unknown Phone Unavailable Care Team Providers Care Broke Handler Name Role Phone PCP Unavailable Reason for Visit * Auth/Cert Referred By Contact Referred To Contact Status Reason Specialty Diagnoses / Procedures [facility] Imaging Services [address] [place] [phone] Closed Radiology Encounter Details Care Team Description Date Type Department Maurice Durbin MD [address] [place] [phone] 10/02/2008 [facility] Imaging Se rvices Encounter [address] [address] Social History Date Tobacco Use [...] Before meals, at bedtime, and as needed 10/02/2008 10/12/2008 dicyclomine (BENTYL) 20 Take 1 Tab by 40 Tab 0 mg Oral Tab mouth 4 times daily for 10 days. 02/26/2009 AMITRIPTYLINE 100 mg Oral Take 100 mg 0 Tab by mouth daily at bedtime. 10/02/2008 11/13/2008 OXYCODONE Take 1 Tab by 90 Tab 0 HCL/ACETAMINOPHEN mouth every 4 (OXYCODONE-ACETAMINOPHEN) hours as 10-325 mg Oral Tab needed. 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 adhd 09/21/2008 11/04/2008 lorazepam (ATIVAN) 1 mg Take 1 Tab by 60 Tab 1 Oral Tab mouth every 8 hours as needed for Other (See Comment). anxiety 09/18/2008 10/12/2008 topiramate (TOPAMAX) 100 Take 1 Tab by 60 Tab 3 mg Oral Tab mouth 2 times daily. 09/18/2008 10/12/2008 gabapentin (NEURONTIN) Take 3 Caps 270 Cap 3 300 mg Oral Cap by mouth 3 times daily. 09/18/2008 10/08/2008 furosemide (LASIX) 40 mg Take 1 Tab by 30 Tab 3 Oral Tab mouth daily. 09/18/2008 10/12/2008 fluticasone-salmeterol Take 1 Puff 1 Device 3 (ADVAIR DISKUS) 500-50 by inhalation mcg/Dose Inhalation DsDv 2 times daily. 09/10/2008 11/13/2008 OXYCODONE HCL (OXYCODONE Take 1 Tab by 60 Tab 0 CR) 20 mg Oral Tb12 mouth every 12 hours. 09/10/2008 02/26/2009 ropinirole (REQUIP) 1 mg Take [...] Pain for 20 Lower back pain doses. 08/19/2008 10/12/2008 duloxetine (CYMBALTA) 30 Take 1 Cap by 30 Cap 1 mg Oral CpDR mouth daily. 08/19/2008 10/12/2008 duloxetine (CYMBALTA) 60 Take 1 Cap by 30 Cap 1 mg Oral CpDR mouth daily. 08/14/2008 12/17/2008 promethazine (PHENERGAN) Take 1 Tab by 30 Tab 0 12.5 mg Oral Tab mouth every 6 hours as needed. 08/03/2008 06/07/2009 ondansetron (ZOFRAN ODT) Take 1 Tab by 30 Tab 0 4 mg Oral TbDL mouth every 8 hours as needed for Nausea. 07/28/2008 11/27/2008 zolpidem (AMBIEN) 10 mg Take 1 Tab by 30 Tab 2 Oral Tab mouth nightly as needed for Insomnia. 07/22/2008 03/12/2009 albuterol-ipratropium Take 2 Puffs 1 Inhaler 5 (COMBIVENT) 103-18 by inhalation mcg/Actuation Inhalation every 6 Aero hours. 07/15/2008 11/04/2008 olanzapine (ZYPREXA) 5 mg Take 1 Tab by 30 Tab 2 Oral Tab mouth daily at bedtime. 06/30/2008 10/23/2008 phenytoin (DILANTIN Take 2 Caps 120 Cap 2 EXTENDED) 100 mg Oral Cap by mouth 2 times daily. 06/22/2008 10/12/2008 cyclobenzaprine Take 1 Tab by 30 Tab 2 (FLEXERIL) 10 mg Oral Tab mouth every 8 hours as needed for Spasm for 90 doses. 06/10/2008 07/30/2009 levalbuterol HFA (XOPENEX Take 2 Puffs 1 Inhaler 5 HFA) 45 mcg/Actuation by inhalation Inhalation HFAA every 6 hours. 06/01/2008 12/28/2008 warfarin (COUMADIN) 5 mg Take 1 Tab by 30 Tab 0 Oral Tab mouth daily. 05/06/2008 12/02/2008 citalopram (CELEXA) 40 mg Take 1 Tab by 30 Tab 5 Oral Tab mouth daily. 10/31/2007 12/02/2009 DUONEB IN Take by 0 inhalation every 6 hours. documented as of this encounter Miscellaneous Notes * Scanned Form - Aok Scanning, Amb Physician - 10/05/2008 1:57 PM CDT documented in this encounter Plan of Treatment Not on filedocumented as of this encounter Procedures Comments Procedure Name Priority Date/Time Associated Diag nosis XR ABDOMEN ACUTE SERIES W Routine 10/02/2008 Abdo ryan Pain, CXR 4:26 PM CDT Generalized documented in this encounter Results * XR ABDOMEN ACUTE SERIES W CXR (10/02/2008 4:26 PM CDT) Specimen Impressions Performed At : No acute abnormality is identified in t he abdomen. Question displaced orthopedic hardware as described above. This is of uncertain clinical significance and ort hopedic consultation is suggested. Narrative Performed At Diagnosis: ABDOMINAL PAIN, GENERALIZED ACUTE ABDOMINAL SERIES: INDICATION: Abdominal pain. Frontal view of the chest, supine and u pright views of the abdomen were obtained. No acute abnormalities iden tified in the chest. The cardiac size and pulmonary vessels and mediasti nal structures appear within normal limits. Supine and upright views of the abdomen were obtained. Examination is limited by respiratory motion artifact. Clips are noted in the right upper quadrant likely from previous cho lecystectomy. Prior placement of a bird's nest type IVC filter noted. No mechanical obstruction or free air. No abnormal intra-abdominal or p elvic calcifications. Postoperative change noted involving th e right and left hips. The calf of the intramedullary rosio appears displ aced medially and overlies the proximal right femoral head laterally. 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 Procedure Note Macho Barrios MD - 10/15/2008 9:31 AM CDT Diagnosis: ABDOMINAL PAIN, GENERALIZED ACUTE ABDOMINAL SERIES: INDICATION: Abdominal pain. Frontal view of the chest, supine and upright views of the abdomen were obtained. No acute abnormalities identified in the chest. The cardiac size and pulmonary vessels and mediastinal structures appear within normal limits. Supine and upright views of the abdomen were obtained. Examination is limited by respiratory motion artifact. Clips are noted in the right upper quadrant likely from previous cholecystectomy. Prior placement of a bird's nest type IVC filter noted. No mechanical obstruction or free air. No abnormal intra- abdominal or pelvic calcifications. Postoperative change noted involving the right and left hips. The calf of the intramedullary rosio appears displaced medially and overlies the proximal right femoral head laterally. 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 IMPRESSION: No acute abnormality is identified in the abdomen. Question displaced orthopedic hardware as described above. This is of uncertain clinical significance and orthopedic consultation is suggested. documented in this encounter Visit Diagnoses Diagnosis Abdominal pain, generalized documented in this encounter
--- OUTSIDE RECORDS SUMMARY | 2019-10-21 18:42 | XMS REPORT | Encounter Summary ---
Author Author [facility] Organization [facility] Address Unknown Phone Unavailable Care Team Providers Care Soccer Ball Assembler Name Role Phone PCP Unavailable Reason for Visit * Reason Comments Results labs Encounter Details Care Team Description Date Type Department Edin Melo MD [address] [place] [address] Results (labs) 10/05/2008 Telephone [facility] Primar y Care [place] [address] [place] [address] Social History Date Tobacco Use [...] * Telephone Encounter - Patt Malik - 10/05/2008 11:26 AM CDT I had called Ayden to give her the results of her labs per Dr Melo were nor mal. I left a message for her to call us. She was however here in [facility] so she h ad come by to see us to get the results. Prior to this Dr Barrios had called Dr Corinne preciado with results of a procedure that Dr Leong had ordered. Dr Melo had me t ell Ayden that her labs were normal that the per Dr Barrios a pin may be out of her hip and to call Dr Leong's office. I gave her these instructions and informa tion and Dr Dorsey number in [place]. Message copied by PATT MALIK on SunOctober 05, 2008 11:26 AM ------ Message from: EDIN MELO Created: SunOctober 02, 2008 4:56 PM nml documented in this encounter Plan of Treatment Not on filedocumented as of this encounter Visit Diagnoses Not on filedocumented in this encounter
--- OUTSIDE RECORDS SUMMARY | 2019-10-21 18:42 | XMS REPORT | Encounter Summary ---
Author Author [facility] Organization [facility] Address Unknown Phone Unavailable Care Team Providers Care Stone Polisher Machine Name Role Phone PCP Unavailable Reason for Visit * Reason Comments Medication Refill Encounter Details Care Team Description Date Type Department Teresa Stewart 11/24/2008 Refill [facility] Primar y Care [address] [phone] Social History Date Tobacco Use Types Packs/Day [...]
--- OUTSIDE RECORDS SUMMARY | 2019-10-21 18:42 | XMS REPORT | Encounter Summary ---
Author Author [facility] Organization [facility] Address Unknown Phone Unavailable Care Team Providers Care Electronic Maintenance Supervisor Name Role Phone PCP Unavailable Encounter Details Care Team Description Date Type Department Teresa Stewart 10/05/2008 Anti-coag visit [facility] Primar y Care [place] [address] [place] [phone] Social History Date Tobacco Use Types Packs/Day [...] history available. documented as of this encounter Patient Instructions * Patient Instructions* Teresa Stewart - 10/05/2008 3:28 PM CDT Same dose recheck 1 month. documented in this encounter Plan of Treatment Not on filedocumented as of this encounter Visit Diagnoses Not on filedocumented in this encounter
--- OUTSIDE RECORDS SUMMARY | 2019-10-21 18:42 | XMS REPORT | Encounter Summary ---
Author Author [facility] Organization [facility] Address Unknown Phone Unavailable Care Team Providers Care Lead Trainer Name Role Phone PCP Unavailable Reason for Referral * Consult, Test & Treat (Routine) Referred By Contact Referred To Contact Status Reason Specialty Diagnoses / Procedures Maurice Durbin MD [address] [place] [address] Turner Cabral, [address] [id number] Closed Diagnoses Nausea & vomiting Diarrhea Reason for Visit * Reason Comments Diarrhea pt says she is having sever e bowel problems, and that she is having accidents and having to buy adult under wear, she says that she is having the diarrhea more when her back hurts Nausea pt says that she is having a lot of nausea, especially with dairy and fried foods and spicy foods Vomiting pt says there is some vomit ing Encounter Details Care Team Description Date Type Department Maurice Durbin MD [address] [place] [address] Nausea & Vomiting; Diarrhea 11/13/2008 [facility] [address] [place] [address] Social History Date Tobacco Use [...] Signs Reading Time Taken Comments Vital Sign 104/70 11/13/2008 9:04 AM CDT Blood Pressure - - Pulse 36.5 C (97.7 F) 11/13/2008 9:04 AM CDT Temperature - - Respiratory Rate - - Oxygen Saturation - - Inhaled Oxygen Concentration 132 kg (291 lb) 11/13/2008 9:04 AM CDT Weight - - Height 51.55 08/26/2008 2:49 AM CDT Body Mass Index documented in this encounter Progress Notes * Maurice Durbin MD - 11/13/2008 12:46 PM CDT Ayden Odom is a 38 y.o. female Chief Complaint Patient presents with Diarrhea pt says she is having severe bowel problems, and that she is having accidents and having to buy adult underwear, she says that she is having the diarrhea more when her back hurts Nausea pt says that she is having a lot of nausea, especially with dairy and fried fo ods and spicy foods Vomiting pt says there is some vomiting the above has been going on for the last several months per the patient but it has never been brought up Pain is still an issue has been taking the methadone and baclofen helping somewh at the oxycondone was helping occasionally ROS neg except for the above mentioned I have reviewed the patient's past medical, surgical and family history in [facility] and updated the computerized patient record. OBJECTIVE: Physical Exam: BP 104/70 | Temp(Src) 97.7 F (36.5 C) (Tympanic) | Wt 291 lb (131.997 kg) | LMP Hysterectomy General appearance: alert, in no distress Lungs: [...] normal tone ASSESSMENT: Encounter Diagnoses Name Primary? Nausea & Vomiting Diarrhea PLAN: Orders Placed This Encounter Amb referral to general surgery Oxycodone sr 40 mg 12 hr tab Oxycodone-acetaminophen 10 mg-325 mg tab Ranitidine 150 mg cap refer to surgery for possible EGD colonoscopy documented in this encounter Plan of Treatment Order Schedule Name Type Priority Associated Diag noses Ordered: 11/13/2008 AMB REFERRAL TO GENERAL Outpatient Routine Nausea & Vomiting SURGERY Referral Diarrhea documented as of this encounter Visit Diagnoses Diagnosis Nausea & vomiting Nausea with vomiting Diarrhea documented in this encounter"
--- OUTSIDE RECORDS SUMMARY | 2019-10-21 18:42 | XMS REPORT | Encounter Summary ---
Author Author [facility] Organization [facility] Address Unknown Phone Unavailable Care Team Providers Care Underwriting Specialist Name Role Phone PCP Unavailable Reason for Visit * Reason Comments Referral Dr Cabral Encounter Details Care Team Description Date Type Department Maurice Durbin MD [address] [place] [address] Referral (Dr Cabral) 11/13/2008 Telephone [facility] Primar y Care [place] [address] [place] [address] Social History Date Tobacco Use [...] * Telephone Encounter - Patt Malik - 11/13/2008 12:[address] Durbin would like to for to see Dr Cabral. I got her set up on 11/16/08 at 1:45 pm. I called Ayden and let her know. documented in this encounter Plan of Treatment Not on filedocumented as of this encounter Visit Diagnoses Not on filedocumented in this encounter
--- OUTSIDE RECORDS SUMMARY | 2019-10-21 18:42 | XMS REPORT | Encounter Summary ---
Author Author [facility] Organization [facility] Address Unknown Phone Unavailable Care Team Providers Care Channel Rougher Name Role Phone PCP Unavailable Reason for Visit * Auth/Cert Referred By Contact Referred To Contact Status Reason Specialty Diagnoses / Procedures [facility] Nuclear Medicine [address] [place] [address] Closed Radiology Encounter Details Care Team Description Date Type Department Lavell Leong Jr., MD [facility] [address] [facility] [address] [place] [address] 10/05/2008 [facility] ort Encounter [place] [facility] [address] [place] [phone] Social History Date Tobacco Use Types [...] mouth daily XR) 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 The find ings in the left femur may be due to nonhealed fracture versus chronic in fection or less likely neoplastic process. Clinical correlation is advi sed. Narrative Performed At Diagnosis: BURSITIS, STRESS FRACTURE LIMITED BONE SCAN: The patient was given 21.7 mCi of techn etium 99 MDP and delayed images were obtained over the pelvis, thighs a nd knees for left hip pain. Comparison is made with a prior examina tion of the left hip and left femur of 09-10-08. The bone scan demonstrates abnormal inc reased uptake in the distal thirds of the both the right and left femurs. There is also abnormal increased uptake about both knees, greater on the left. No abnormal uptake is identified about the hips. Procedure Note Macho Barrios MD - 10/06/2008 12:21 PM CDT Diagnosis: BURSITIS, STRESS FRACTURE LIMITED BONE SCAN: The patient was given 21.7 mCi of technetium 99 MDP and delayed images were obtained over the pelvis, thighs and knees for left hip pain. Comparison is made with a prior examination of the left hip and left femur of 09-10-08. The bone scan demonstrates abnormal increased uptake in the distal thirds of the both the right and left femurs. There is also abnormal increased uptake about both knees, greater on the left. No abnormal uptake is identified about the hips. IMPRESSION: Abnormal increased uptake about both knees and distal thirds of both femurs, greater on the left. The findings in the left femur may be due to nonhealed fracture versus chronic infection or less likely neoplastic process. Clinical correlation is advised. documented in this encounter Visit Diagnoses Diagnosis Bursitis Other bursitis disorders Stress fracture Stress fracture of other bone documented in this encounter
--- OUTSIDE RECORDS SUMMARY | 2019-10-21 18:42 | XMS REPORT | Encounter Summary ---
Author Author [facility] Organization [facility] Address Unknown Phone Unavailable Care Team Providers Care Hat Forming Machine Feeder Name Role Phone PCP Unavailable Reason for Visit * Reason Comments Medication Refill Encounter Details Care Team Description Date Type Department Lilliam Durant 10/08/[address] [address] Social History Date Tobacco [...]
--- OUTSIDE RECORDS SUMMARY | 2019-10-21 18:42 | XMS REPORT | Encounter Summary ---
Author Author [facility] Organization [facility] Address Unknown Phone Unavailable Care Team Providers Care Sandblast Or Shotblast Equipment Tender Name Role Phone PCP Unavailable Encounter Details Care Team Description Date Type Department Maurice Durbin MD [address] [place] [address] 10/22/2008 Abstract [facility] Primar y Care [place] [address] [place] [address] Social History Date Tobacco Use [...]
--- OUTSIDE RECORDS SUMMARY | 2019-10-21 18:42 | XMS REPORT | Encounter Summary ---
Author Author [facility] Organization [facility] Address Unknown Phone Unavailable Care Team Providers Care Citrix Lead Name Role Phone PCP Unavailable Reason for Visit * Reason Comments Results xray Encounter Details Care Team Description Date Type Department Edin Melo MD [address] [place] [address] Results (xray) 10/16/2008 Telephone [facility] Primar y Care [place] [address] [place] [address] Social History Date Tobacco Use [...] * Telephone Encounter - Patt Malik - 10/16/2008 4:08 PM CDT I had called several times trying to get Esme about her xray. Her hu lynneand called in and wanted to get her an appointment for Sunday due to diarrhea. He also wanted to get her xray results. There was a letter signed by Ayden lawsong him permission to get information. I told Yenny Paredes who was working recepti on that it was negative and to let him know. Message copied by PATT MALIK on SunOctober 16, 2008 4:08 PM ------ Message from: EDIN MELO. Created: SunOctober 15, 2008 9:38 AM Neg documented in this encounter Plan of Treatment Not on filedocumented as of this encounter Visit Diagnoses Not on filedocumented in this encounter
--- OUTSIDE RECORDS SUMMARY | 2019-10-21 18:42 | XMS REPORT | Encounter Summary ---
Author Author [facility] Address Unknown Phone Unavailable Care Team Providers Care Photographer'S Model Name Role Phone PCP Unavailable Reason for Visit * Reason Comments Medication Refill Encounter Details Care Team Description Date Type Department Maurice Durbin MD [address] [place] [address] 11/04/2008 Refill [facility] Primar y Care [place] [address] [place] [address] Social History Date Tobacco Use [...]
--- OUTSIDE RECORDS SUMMARY | 2019-10-21 18:42 | XMS REPORT | Encounter Summary ---
Author Author [facility] Organization [facility] Address Unknown Phone Unavailable Care Team Providers Care Senior Engineering Manager Name Role Phone PCP Unavailable Reason for Visit * Reason Comments Medication Review Encounter Details Care Team Description Date Type Department Teresa Stewart Medication Review 11/11/2008 Telephone [facility] Primar y Care [place] [address] [facility] [place] [phone] Social History Date Tobacco Use Types Packs/Day [...] encounter Miscellaneous Notes * Telephone Encounter - Teresa Stewart - 11/11/2008 3:55 PM CDT Patient called stating that her pain medicine is not working and wanted to know if she could take her baclofen and methadone until her apt Sunday. Dr. Durbin s aid that was fine. documented in this encounter Plan of Treatment Not on filedocumented as of this encounter Visit Diagnoses Not on filedocumented in this encounter
--- OUTSIDE RECORDS SUMMARY | 2019-10-21 18:42 | XMS REPORT | Encounter Summary ---
Author Author [facility] Organization [facility] Address Unknown Phone Unavailable Care Team Providers Care Customer Service Officer Name Role Phone PCP Unavailable Encounter Details Care Team Description Date Type Department Maurice Durbin MD [address] [place] [address] 10/22/2008 Abstract [facility] Primar y Care [place] [address] [place] [address] Social History Date Tobacco Use [...]
--- OUTSIDE RECORDS SUMMARY | 2019-10-21 18:42 | XMS REPORT | Encounter Summary ---
Author Author [facility] Organization [facility] Address Unknown Phone Unavailable Care Team Providers Care Workers Compensation Specialist Name Role Phone PCP Unavailable Reason for Visit * Reason Comments Diarrhea nausea,vomiting, cons. with dr. mayer * Consult, Test & Treat (Routine) Referred By Contact Referred To Contact Status Reason Specialty Diagnoses / Procedures Maurice Mayer MD [address] [place] [address] [facility] [address] [place] [address] Closed Diagnoses Nausea & vomiting Diarrhea Encounter Details Care Team Description Date Type Department Broadus Turner [facility] [address] [place] [address] Diarrhea (Primary Dx) 11/16/2008 Initial consult [facility] [address] [place] [address] Social History Date Tobacco Use [...] Signs Reading Time Taken Comments Vital Sign 90/60 11/16/2008 2:20 PM CDT Blood Pressure 96 11/16/2008 2:20 PM CDT Pulse 36.8 C (98.2 F) 11/16/2008 2:20 PM CDT Temperature - - Respiratory Rate - - Oxygen Saturation - - Inhaled Oxygen Concentration - - Weight - - Height - - Body Mass Index documented in this encounter Progress Notes * Turner Cabral, DO - 11/17/2008 12:15 PM CDT [facility] * OFFICE NOTES * [facility] [address] JERALD VELAZQUEZ [id number] 11/16/08 PATIENT OF: Maurice Mayer M.D. SUBJECTIVE: This is a 38-year-old female who has been having some diarrhea and abdominal pa in. Jerald has been experiencing increasing nausea and vomiting with some diarr hea. She had an upper endoscopy and colonoscopy in 09/09, where we did find two very small polyps. She is not due for another colonoscopy for another four years . She has been having increasing nausea and having a lot of diarrhea for quite s ome time. PAST MEDICAL HISTORY: Sleep apnea, embolism, hip pain, chronic pain, asthma, migraines, myalgia, boarder machine judy airway obstruction, diabetes, bipolar disorder. PAST SURGICAL HISTORY: Include cholecystectomy, appendectomy, total abdominal hysterectomy. SOCIAL HISTORY: She does admit to smoking. She also admits to drinking several Diet DrJose Carlos Hogan' s per day as well as at least one [address] [place] Belkofski-aide from [place]. CURRENT MEDICATIONS: She has been placed on Oxycodone. She takes Zantac, Ativan, Zyprexa, Dilantin, Cymbalta, Flexeril, Neurontin, Topamax, Advair diskus, Lasix, Requip, Depakote, Lipitor, K-Dur, Nexium, Carafate, Phenergan, Zofran, Ambien, Combivent, Xopenex, Coumadin, Flonase, Celexa. OBJECTIVE: Vital signs stable. She is quite somnolent. She is very drowsy and appears to b e over medicated. Heart has regular rate and rhythm. Lungs are clear. Abdomen is soft. Diffusely tender. ASSESSMENT: 1. Persistent nausea - most likely secondary due to medications. 2. Diarrhea - secondary to overuse of beverages. 3. I do believe that there is an element of irritable bowel as well. PLAN: I am recommending an irritable bowel diet, but this probably will not be very e ffective if she does not cut down on smoking and also on the amount of fluid int alcira that she does. Colonoscopy and upper endoscopy are not indicated at this karsisa e. Possibly review of her medicines and discontinuing all narcotics would help. Dictated by: Turner Cabral D.O., F.AJose CarlosCJose CarlosO.SJose Carlos/MANNY/DANELLE 11/17/08 CC: Maurice aMyer M.D. [facility] OFFICE NOTES # [phone] * Turner Cabral DO - 11/16/2008 4:15 PM CDT Dictation #1 for this encounter. CSN: [id number] documented in this encounter Plan of Treatment Not on filedocumented as of this encounter Visit Diagnoses Diagnosis Diarrhea - Primary documented in this encounter
--- OUTSIDE RECORDS SUMMARY | 2019-10-21 18:42 | XMS REPORT | Encounter Summary ---
Author Author [facility] Organization [facility] Address Unknown Phone Unavailable Care Team Providers Care Surplus Property Disposal Agent Name Role Phone PCP Unavailable Reason for Visit * Auth/Cert Referred By Contact Referred To Contact Status Reason Specialty Diagnoses / Procedures [facility] Nuclear Medicine [address] [place] [address] Closed Radiology Encounter Details Care Team Description Date Type Department Lavell Leong Jr., MD [facility] [address] [facility] [address] [place] [address] 10/05/2008 [facility] ort Encounter [place] [facility] [address] [place] [address] Social History Date Tobacco Use Types [...] mouth daily 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 documented in this encounter Visit Diagnoses Not on filedocumented in this encounter
--- OUTSIDE RECORDS SUMMARY | 2019-10-21 18:42 | XMS REPORT | Encounter Summary ---
Author Author [facility] Organization [facility] Address Unknown Phone Unavailable Care Team Providers Care Coremaking Machine Setter Name Role Phone PCP Unavailable Reason for Visit * Reason Comments Medication Refill Encounter Details Care Team Description Date Type Department Maurice Durbin MD [address] [place] [address] 10/12/2008 Refill [facility] Primar [facility] Care [place] [address] [place] [address] Social History Date Tobacco Use [...]
--- OUTSIDE RECORDS SUMMARY | 2019-10-21 18:42 | XMS REPORT | Encounter Summary ---
Author Author [facility] Organization [facility] Address Unknown Phone Unavailable Care Team Providers Care Short Range Air Defense Artillery Name Role Phone PCP Unavailable Reason for Visit * Reason Comments Medication Refill Encounter Details Care Team Description Date Type Department Maurice Durbin MD [address] [place] [address] 10/19/2008 Refill [facility] Primar y Care [place] [address] [place] [address] Social History Date Tobacco Use [...]
--- OUTSIDE RECORDS SUMMARY | 2019-10-21 18:42 | XMS REPORT | Encounter Summary ---
Author Author [facility] Organization [facility] Address Unknown Phone Unavailable Care Team Providers Care Geometry Tutor Name Role Phone PCP Unavailable Reason for Visit * Reason Comments Medication Refill Encounter Details Care Team Description Date Type Department Maurice Durbin MD [address] [place] [address] 10/23/2008 Refill [facility] Primar [facility] Care [place] [address] [place] [address] Social History Date Tobacco Use [...]
--- OUTSIDE RECORDS SUMMARY | 2019-10-21 18:43 | XMS REPORT | Encounter Summary ---
Author Author [facility] Organization [facility] Address Unknown Phone Unavailable Care Team Providers Care Barrel And Receiver Aligner Name Role Phone PCP Unavailable Reason for Visit * Reason Comments Follow Up f/u carbuncles Encounter Details Care Team Description Date Type Department Molina Valenzuela DO [address] [place] [address] Vulvitis (Primary Dx) 09/08/2008 Office Visit [facility] [place] [address] [place] [address] Social History Date Tobacco Use [...] Signs Reading Time Taken Comments Vital Sign 128/62 09/08/2008 1:27 PM CDT Blood Pressure - - Pulse 37.2 C (98.9 F) 09/08/2008 1:27 PM CDT Temperature - - Respiratory Rate - - Oxygen Saturation - - Inhaled Oxygen Concentration - - Weight - - Height - - Body Mass Index documented in this encounter Progress Notes * Molina Valenzuela DO - 09/08/2008 1:49 PM CDT HISTORY OF PRESENT ILLNESS Ayden Odom, a 38 y.o. female. HPI Patient here for follow up after having vulvar irritation. She was place on ove r the counter Monistat, now she is much better. REVIEW OF SYSTEMS ROS No review of systems was done today. PHYSICAL EXAM BP 128/62 | Temp 98.9 F (37.2 C) | LMP Hysterectomy Physical Exam Pelvic: External genitalia normal, Vagina normal without discharge, no adnexal m asses or tenderness, rectovaginal septum normal, uterus surgically absent, sadi l appearing anatomy after hysterectomy--previous irritation not visualized ASSESSMENT and PLAN: Assessment: Vulvitis Plan: Previous irritation has resolved. May return to normal activities of cathleen ly living. documented in this encounter Plan of Treatment Not on filedocumented as of this encounter Visit Diagnoses Diagnosis Vulvitis - Primary Vaginitis and vulvovaginitis, unspecifi ed documented in this encounter"
--- OUTSIDE RECORDS SUMMARY | 2019-10-21 18:43 | XMS REPORT | Encounter Summary ---
Author Author [facility] Organization [facility] Address Unknown Phone Unavailable Care Team Providers Care President Finance Company Name Role Phone PCP Unavailable Reason for Visit * Reason Comments Head Injury knocked head on car on sunday Extreme Thirst Headache Neck Pain Shoulder Pain Nausea Vomiting Encounter Details Care Team Description Date Type Department Becka Watters, HONEY GRADER AND BLENDER [address] [place] [address] Headache (Primary Dx) 09/15/2008 Office Visit [facility] [place] [address] [address] Social History Date Tobacco [...] Vital Sign - - Blood Pressure 103 09/15/2008 8:26 PM CDT Pulse 36.8 C (98.3 F) 09/15/2008 8:26 PM CDT Temperature - - Respiratory Rate 98% 09/15/2008 8:26 PM CDT Oxygen Saturation - - Inhaled Oxygen Concentration - - Weight - - Height - - Body Mass Index documented in this encounter Progress Notes * Becka Watters - 09/23/2008 8:33 PM CDT Patient bumped her head on the car door on Sunday. Now complaining of w \\"worst headache that she has ever had in her life, decreased and fussy vision. Due to possibility of neurological problems, patient was triaged to ER after sp eaking to ER physician, Dr. Boudreaux documented in this encounter Plan of Treatment Not on filedocumented as of this encounter Visit Diagnoses Diagnosis Headache(784.0) - Primary Headache documented in this encounter
--- OUTSIDE RECORDS SUMMARY | 2019-10-21 18:43 | XMS REPORT | Encounter Summary ---
Author Author [facility] Organization [facility] Address Unknown Phone Unavailable Care Team Providers Care Manager Of Digital Name Role Phone PCP Unavailable Reason for Visit * Reason Comments Medication Refill Encounter Details Care Team Description Date Type Department Maurice Durbin MD [address] [place] [address] 09/21/2008 Refill [facility] Primar y Care [place] [address] [place] [address] Social History Date Tobacco Use [...] * Telephone Encounter - Pretty Grullon - 09/21/2008 3:13 PM CDT Pt needs refills on deoneb. This was ok'd x6 to octaviano. documented in this encounter Plan of Treatment Not on filedocumented as of this encounter Visit Diagnoses Not on filedocumented in this encounter
--- OUTSIDE RECORDS SUMMARY | 2019-10-21 18:43 | XMS REPORT | Encounter Summary ---
Author Author [facility] Organization [facility] Address Unknown Phone Unavailable Care Team Providers Care Editor Producer Name Role Phone PCP Unavailable Reason for Visit * Reason Comments Medication Refill Encounter Details Care Team Description Date Type Department Maurice Durbin MD [address] [place] [address] 09/10/2008 Refill [facility] Primar y Care [place] [address] [place] [address] Social History Date Tobacco Use [...]
--- OUTSIDE RECORDS SUMMARY | 2019-10-21 18:43 | XMS REPORT | Encounter Summary ---
Author Author [facility] Organization [facility] Address Unknown Phone Unavailable Care Team Providers Care Elevator Inspector Name Role Phone PCP Unavailable Encounter Details Care Team Description Date Type Department Maurice Durbin MD [address] [place] [address] 09/21/2008 Anti-coag visit [facility] Primar y Care [place] [address] [place] [address] Social History Date Tobacco [...] encounter Progress Notes * Patt Malik - 09/21/2008 12:33 PM CDT Ayden was in the office today and asked about her protime that was taken in e ER last week. It was at 1.32, Dr Durbin changed her schedule to 5 mg MWF and 10 mg TTSS and recheck in two weeks. documented in this encounter Plan of Treatment Not on filedocumented as of this encounter Visit Diagnoses Not on filedocumented in this encounter
--- OUTSIDE RECORDS SUMMARY | 2019-10-21 18:43 | XMS REPORT | Encounter Summary ---
Author Author [facility] Organization [facility] Address Unknown Phone Unavailable Care Team Providers Care Machine Stonecutter Name Role Phone PCP Unavailable Reason for Visit * Auth/Cert Referred By Contact Referred To Contact Status Reason Specialty Diagnoses / Procedures [facility] Imaging Services [address] [place] [phone] Closed Radiology Encounter Details Care Team Description Date Type Department Maurice Durbin MD [address] [place] [phone] 09/10/2008 [facility] Imaging rvices Encounter [address] [phone] Social History Date Tobacco Use [...] Before meals, at bedtime, and as needed 09/10/2008 10/02/2008 OXYCODONE Take 1 Tab by 90 Tab 0 HCL/ACETAMINOPHEN mouth every 4 (OXYCODONE-ACETAMINOPHEN) hours as 10-325 mg Oral Tab needed. 09/10/2008 11/13/2008 OXYCODONE HCL (OXYCODONE Take 1 [...] Pain for 20 Lower back pain doses. 08/31/2008 09/21/2008 lorazepam (ATIVAN) 1 mg Take 1 Tab by 30 Tab 1 Oral Tab mouth every 8 hours as needed for Other (See Comment). anxiety 08/19/2008 10/12/2008 duloxetine (CYMBALTA) 30 Take 1 [...] as needed for Spasm for 90 doses. 06/17/2008 09/18/2008 topiramate (TOPAMAX) 100 Take 1 Tab by 60 Tab 2 mg Oral Tab mouth 2 times daily. 06/10/2008 07/30/2009 levalbuterol HFA (XOPENEX Take 2 Puffs 1 Inhaler 5 HFA) 45 mcg/Actuation by inhalation Inhalation HFAA every 6 hours. 06/01/2008 12/28/2008 warfarin (COUMADIN) 5 mg Take 1 Tab by 30 Tab 0 Oral Tab mouth daily. 09/18/2008 NEURONTIN 300 mg Oral Cap Take 900 mg 0 by mouth 3 times daily. 05/25/2008 09/18/2008 furosemide (LASIX) 40 mg Take 1 Tab by 30 Tab 3 Oral Tab mouth daily. 05/06/2008 12/02/2008 citalopram (CELEXA) 40 mg Take 1 Tab by 30 Tab 5 Oral Tab mouth daily. 10/31/2007 12/02/2009 DUONEB IN Take by 0 inhalation every 6 hours. 10/31/2007 09/18/2008 ADVAIR DISKUS 500-50 Take 1 Puff 0 mcg/Dose Inhalation DsDv by inhalation 2 times daily. documented as of this encounter Plan of Treatment Not on filedocumented as of this encounter Procedures Comments Procedure Name Priority Date/Time Associated Diag nosis XR FEMUR 2 VW LEFT Routine 09/10/2008 Back Pain 11:36 AM CDT documented in this encounter Results * XR FEMUR 2 VW LEFT (09/10/2008 11:36 AM CDT) Specimen Impressions Performed At : Postoperative change involving the left hip as described without acute bony abnormality identified. LEFT FEMUR Indication: Thigh pain. AP and lateral views demonstrate an int ramedullary rosio in place with two proximal and two distal interlocking sc rews. Previous fracture involving the distal third of the femur is again noted. There is callus formation noted at the fracture site. An acute appearing fracture or subluxation is not identified. IMPRESSION: Postoperative and post traumatic change involving the left femur similar in appearance to 02/10/2008. Narrative Performed At LEFT HIP AP and lateral views were obtained. C omparison is made with 02/10/2008. There is an intramedullary rosio in place with two proximal interlocking screws. Calcific density is noted pro ximal to the greater trochanter likely due to heterotopic bone formatio n. Lucency is noted about the intramedullary rosio proximally which may reflect postoperative change. This is similar in appearance to the pr ior examination. Underlying moderate degenerative change involving the left hip joint is noted. An acute fracture or subluxati on is not identified. Procedure Note Macho Barrios MD - 09/10/2008 3:17 PM CDT LEFT HIP AP and lateral views were obtained. Comparison is made with 02/10/2008. There is an intramedullary rosio in place with two proximal interlocking screws. Calcific density is noted proximal to the greater trochanter likely due to heterotopic bone formation. Lucency is noted about the intramedullary rosio proximally which may reflect postoperative change. This is similar in appearance to the prior examination. Underlying moderate degenerative change involving the left hip joint is noted. An acute fracture or subluxation is not identified. IMPRESSION: Postoperative change involving the left hip as described without acute bony abnormality identified. LEFT FEMUR Indication: Thigh pain. AP and lateral views demonstrate an intramedullary rosio in place with two proximal and two distal interlocking screws. Previous fracture involving the distal third of the femur is again noted. There is callus formation noted at the fracture site. An acute appearing fracture or subluxation is not identified. IMPRESSION: Postoperative and post traumatic change involving the left femur similar in appearance to 02/10/2008. documented in this encounter Visit Diagnoses Diagnosis Pain in joint, lower leg documented in this encounter
--- OUTSIDE RECORDS SUMMARY | 2019-10-21 18:43 | XMS REPORT | Encounter Summary ---
Author Author [facility] Organization [facility] Address Unknown Phone Unavailable Care Team Providers Care Pig Machine Supervisor Name Role Phone PCP Unavailable Reason for Visit * Reason Comments Hoarse pt says that she is losing her voice Ear Pain left ear hurting Headache been having headaches for a week Leg Pain pt having still havingn leg numbness, does have a ortho appt this week Light Sensitivity pt says she is having light and noise sensitivity Encounter Details Care Team Description Date Type Department Maurice Durbin MD [address] [place] [address] ADHD (Primary Dx); DM w/o Complication Type II; Bipolar Disorder, Unspecified; Chronic Airway Obstruction, not Elsewhere Classified 09/21/2008 Office Visit [facility] Prim[facility] y [facility] [place] [address] [place] [address] Social History Date Tobacco Use [...] Signs Reading Time Taken Comments Vital Sign 108/60 09/21/2008 10:53 AM CDT Blood Pressure 80 09/21/2008 10:53 AM CDT Pulse 36.6 C (97.9 F) 09/21/2008 10:53 AM CDT Temperature - - Respiratory Rate - - Oxygen Saturation - - Inhaled Oxygen Concentration - - Weight - - Height - - Body Mass Index documented in this encounter Progress Notes * Maurice Durbin MD - 09/23/2008 1:13 PM CDT Ayden Odom is a 38 y.o. female Chief Complaint Patient presents with Hoarse pt says that she is losing her voice Ear Pain left ear hurting Headache been having headaches for a week Leg Pain pt having still havingn leg numbness, does have a ortho appt this week Light Sensitivity pt says she is having light and noise sensitivity was seen in the ER and was not happy as they did not give her any pain meds she has been having more pain as well as some nasal drainage also under more stress as her son is about to be sentenced ROS neg except for the above mentioned I have reviewed the patient's past medical, surgical and family history in [facility] and updated the computerized patient record. OBJECTIVE: Physical Exam: BP 108/60 | Pulse 80 | Temp(Src) 97.9 F (36.6 C) (Tympanic) | LMP Hysterecto my General appearance: alert, in no distress Head: atraumatic, Normocephalic, without obvious abnormality, sinuses tender to percussion Eyes: conjunctivae/corneas clear. PERRL, EOM's intact. Ears: normal TM's and external ear canals AU Nose: turbinates swollen, edematous, sinus tenderness bilateral Throat: Lips, mucosa (moist), and tongue normal. Teeth and gums normal Lungs: clear to auscultation bilaterally, normal respiratory effort Heart: normal rate, regular rhythm, normal S1, S2, no murmurs, rubs, clicks or g allops Abdomen: Soft, non-tender. Bowel sounds normal. No masses, no organomegaly. ASSESSMENT: Encounter Diagnoses Name Primary? ADHD Yes DM w/o Complication Type II Bipolar Disorder, Unspecified Chronic Airway Obstruction, not Elsewhere Classified PLAN: Orders Placed This Encounter Amphetamine-dextroamphetamine sr 30 mg 24 hr cap Lorazepam 1 mg tab Levofloxacin 500 mg tab documented in this encounter Plan of Treatment Not on filedocumented as of this encounter Visit Diagnoses Diagnosis ADHD - Primary Attention deficit disorder with hyperac tivity Type II or unspecified type diabetes me llitus without mention of complication, not stated as uncontrolled Bipolar disorder, unspecified Chronic airway obstruction, not elsewhe re classified documented in this encounter"
--- OUTSIDE RECORDS SUMMARY | 2019-10-21 18:43 | XMS REPORT | Encounter Summary ---
Author Author [facility] Organization [facility] Address Unknown Phone Unavailable Care Team Providers Care Hose Coupling Joiner Name Role Phone PCP Unavailable Reason for Visit * Auth/Cert Referred By Contact Referred To Contact Status Reason Specialty Diagnoses / Procedures [facility] Imaging Services [address] [place] [phone] Closed Radiology Encounter Details Care Team Description Date Type Department [facility], Lab Schedule 10/02/2008 [facility] General Encounter Laboratory Services [place] [address] [place] [address] Social History Date Tobacco Use [...] mouth daily XR) 30 mg 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 adhd 09/21/2008 11/04/2008 lorazepam (ATIVAN) 1 mg [...] Associated Diag nosis CBC WITH DIFFERENTIAL Routine 10/02/2008 Abdomina l Pain, 4:02 PM CDT Generalized PROTIME-INR Routine 10/02/2008 Encounter for L ne-Term 4:02 PM CDT (Current) Use of Anticoagulants LIPASE Routine 10/02/2008 Abdominal Pain, 4:02 PM CDT Generalized AMYLASE Routine 10/02/2008 Abdominal Pain, 4:02 PM CDT Generalized COMPREHENSIVE METABOLIC Routine 10/02/2008 Abdomi nal Pain, PANEL 4:02 PM CDT Generalized documented in this encounter Results * PROTIME-INR (10/02/2008 4:02 PM CDT) PROTIME 21.7 (H) 9.5 - 11.5 Sec [facility] INR 2.17Comment: [facility],DE 2.0 - 3.0 [facility] ACCT#[id number], ,,,, [facility]ENTER [place] [facility] Specimen Blood specimen (specimen) Performing Organization Address [facility] one Number [facility] [id number] [place], [place] [address] [facility] [address] [place] [address] * LIPASE (10/02/2008 4:02 PM CDT) LIPASE 225Comment: [facility] 114 - 286 U/L [facility] ACCT#[id number], ,,,, [facility] [place] [facility] Specimen Blood specimen (specimen) Performing Organization Address [facility] Ph one Number INTERFACE SYSTEM [facility] CLIA# [id number] [place], [place] [address] [facility] [address] [place] [address] * COMPREHENSIVE METABOLIC PANEL (10/02/2008 4:02 PM CDT) GLUCOSE 136 (H) 70 - 110 mg/dl [facility] BUN 13.0 7 - 20 mg/dl [facility] CREATININE 0.90 0.6 - 1.0 mg/dl [facility] BUN/CREAT RATIO 14.4 10 - 20 [facility] GFR 75 >90 ml/min [facility] SODIUM 136 135 - 145 mmol/L [facility] POTASSIUM 3.6 3.3 - 4.8 mmol/L [facility] CHLORIDE 103 98 - 107 mmol/L [facility] CO2 22.3 22 - 31 mmol/L [facility] ANION GAP 14 4 - 20 [facility] CALCIUM 8.1 (L) 8.5 - 10.1 mg/dl [facility] ALBUMIN 3.2 (L) 3.4 - 5.0 g/dl [facility] TOTAL PROTEIN 7.1 6.4 - 8.2 g/dl [facility] GLOBULIN (CALC) 3.9 [facility] ALBUMIN/GLOBULI 0.8 [facility] BILIRUBIN TOTAL 0.2 <1.1 mg/dl [facility] ALKALINE 122 50 - 136 IU/L [facility] PHOSPHATASE [place] [facility] AST 14 10 - 40 IU/L [facility] ALT 38Comment: [facility] 25 - 70 IU/L [facility] ACCT#[id number], ,,,, CENTER [facility] Specimen Blood specimen (specimen) Performing Organization Address City/State/[place]conj Ph one Number INTERFACE SYSTEM [facility] AL[facility]SA [place]# [id number] [place], [place] [address] [facility] [address] [facility] * CBC WITH DIFFERENTIAL (10/02/2008 4:02 PM CDT) WBC 9.67 3.0 - 10.4 x10E3 [facility] RBC 4.33 3.77 - 4.97 x10E6 [facility] HEMOGLOBIN 13.9 11.9 - 15.0 g/dL [facility] HEMATOCRIT 39.8 34.4 - 43.6 % [facility] MCV 91.9 79 - 100 fL [facility] MCH 32.0 28 - 34 pg [facility] MCHC 34.8 33 - 36 g/dL [facility] RDW 13.9 11.5 - 15.1 % [facility] PLATELETS 174 148 - 408 x10E3 [facility] MPV 8.0 7.4 - 10.6 fL [facility] NEUTROPHILS 63.3 43 - 73 % [facility] LYMPHOCYTES 29.7 19 - 47 % [facility] MONOCYTES 4.8 3 - 9 % [facility] EOSINOPHILS 1.9 0 - 6 % [facility] BASOPHILS 0.3 0 - 1.2 % [facility] NEUTROPHIL 6.12 1.3 - 7.6 x10E3 [facility] LYMPHOCYTE 2.87 0.6 - 4.9 x10E3 [facility] MONOCYTE 0.46 0.1 - 0.9 x10E3 [facility] EOSINOPHIL 0.19 0.0 - 0.2 x10E3 [facility] BASOPHILS 0.03Comment: [facility] 0 - 0.1 x10E3 [facility] ACCT#[id number], ,,,, [facility] Specimen Blood specimen (specimen) Performing Organization Address City/[facility] one Number INTERFACE [facility] CLIA# [id number] [place] [address] [facility] [address] [place] [address] * AMYLASE (10/02/2008 4:02 PM CDT) AMYLASE 25Comment: [facility] 25 - 115 IU/L [facility] ACCT#[id number], ,,,, [facility] Specimen Blood specimen (specimen) Performing Organization Address City/[facility] Ph one Number [facility] CLIA# [id number] [place] [address] [facility] [address] [place] [address] documented in this encounter Visit Diagnoses Diagnosis Abdominal pain, generalized longterm (current) use of anticoagulan ts Long-term (current) use of anticoagulan ts documented in this encounter
--- OUTSIDE RECORDS SUMMARY | 2019-10-21 18:43 | XMS REPORT | Encounter Summary ---
Author Author [facility] Organization [facility] Address Unknown Phone Unavailable Care Team Providers Care Housecalls Nurse Name Role Phone PCP Unavailable Reason for Visit * Auth/Cert Referred By Contact Referred To Contact Status Reason Specialty Diagnoses / Procedures [facility] Imaging Services [address] [place] [phone] Closed Radiology Encounter Details Care Team Description Date Type Department Maurice Durbin MD [address] [place] [phone] 09/10/2008 [facility] Imaging rvices Encounter [address] [phone] Social History Date Tobacco [...] times daily. documented as of this encounter Miscellaneous Notes * Scanned Form - Aok Scanning, Amb Physician - 09/11/2008 10:08 AM CDT documented in this encounter Plan of Treatment Not on filedocumented as of this encounter Procedures Comments Procedure Name Priority Date/Time Associated Diag nosis XR HIP 2 OR 3 VIEWS LT Routine 09/10/2008 Back Pa in 11:36 AM CDT documented in this encounter Results * XR HIP 2+ VW LEFT (09/10/2008 11:36 AM CDT) Specimen [...]
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
--- OUTSIDE RECORDS SUMMARY | 2019-10-21 18:43 | XMS REPORT | Encounter Summary ---
Author Author [facility] Organization [facility] Address Unknown Phone Unavailable Care Team Providers Care Steel Layer Name Role Phone PCP Unavailable Reason for Visit * Reason Comments Medication Refill Encounter Details Care Team Description Date Type Department Teresa Stewart 09/18/2008 Refill [facility] Primar y Care [address] [id number] Social History Date Tobacco Use Types Packs/Day [...]
--- OUTSIDE RECORDS SUMMARY | 2019-10-21 18:43 | XMS REPORT | Encounter Summary ---
Author Author [facility] Organization [facility] Address Unknown Phone Unavailable Care Team Providers Care Accounts Payable Specialist Name Role Phone PCP Unavailable Reason for Visit * Reason Comments Follow Up pt not feeling good, left l eg is still sensitive, legs giving out, hands and wrists hurting, pt wants to get a c olonscopy ER Follow Up was given a script for hydr ocodone and is not sure if she should take it Headache Encounter Details Care Team Description Date Type Department Maurice Durbin MD [address] [place] [address] Back Pain; Pain in Joint, Lower Leg 09/10/2008 Office Visit [facility] Primar y Care [place] [address] [place] [address] Social History Date Tobacco Use [...] Signs Reading Time Taken Comments Vital Sign 102/64 09/10/2008 10:40 AM CDT Blood Pressure 84 09/10/2008 10:40 AM CDT Pulse 36.8 C (98.2 F) 09/10/2008 10:40 AM CDT Temperature - - Respiratory Rate - - Oxygen Saturation - - Inhaled Oxygen Concentration - - Weight - - Height - - Body Mass Index documented in this encounter Progress Notes * Maurice Durbin MD - 09/10/2008 5:25 PM CDT Ayden Odom is a 38 y.o. female Chief Complaint Patient presents with Follow Up pt not feeling good, left leg is still sensitive, legs giving out, hands and w rists hurting, pt wants to get a colonscopy ER Follow Up was given a script for hydrocodone and is not sure if she should take it Headache did not take the vicodin the pain is better but coming every 4-5 hours instead of six we will increase it at this time still with headache will repeat xray of the left leg today ROS neg except for the above mentioned I have reviewed the patient's past medical, surgical and family history in [facility] and updated the computerized patient record. OBJECTIVE: Physical Exam: BP 102/64 | Pulse 84 | Temp(Src) 98.2 F (36.8 C) (Tympanic) | LMP Hysterecto [...] normal tone ASSESSMENT: Encounter Diagnoses Name Primary? Back Pain Pain in Joint, Lower Leg PLAN: Orders Placed This Encounter Xr hip 2+ vw left Xr femur 2 vw left Oxycodone-acetaminophen 10 mg-325 mg tab Oxycodone sr 20 mg 12 hr tab follow up 10 days documented in this encounter Plan of Treatment Not on filedocumented as of this encounter Results * XR HIP 2+ [...] left femur similar in appearance to 02/10/2008. * XR FEMUR 2 VW LEFT (09/10/2008 [...] Back pain Backache, unspecified Pain in joint, lower leg documented in this encounter"
--- OUTSIDE RECORDS SUMMARY | 2019-10-21 18:43 | XMS REPORT | Encounter Summary ---
Author Author [facility] Organization [facility] Address Unknown Phone Unavailable Care Team Providers Care Appeals Representative Name Role Phone PCP Unavailable Reason for Visit * Reason Comments Abdominal Pain pt says she has right sided abdominal pain and when she has a bm it hurts in that area, pt says she when she eats her stomach cramps, pt says that it has been off and on for the last week, pt say it does not matter what she eats she is having pain Nausea Diarrhea Numbness in arms and legs, pt says t hat they are going to sleep Visual Problems pt says that she is having problems seeing when she is focusing on objects Encounter Details Care Team Description Date Type Department Maurice Durbin MD [address] [place] [address] Abdominal Pain, Generalized (Primary Dx) 10/02/2008 Office Visit [facility] Prim[facility] y [facility] [place] [address] [place] [address] Social History Date Tobacco Use [...] Reading Time Taken Comments Vital Sign 92/58 10/02/2008 3:34 PM CDT Blood Pressure 80 10/02/2008 3:34 PM CDT Pulse 36.8 C (98.3 F) 10/02/2008 3:34 PM CDT Temperature - - Respiratory Rate - - Oxygen Saturation - - Inhaled Oxygen Concentration - - Weight - - Height - - Body Mass Index documented in this encounter Progress Notes * Maurice Durbin MD - 10/07/2008 1:31 PM CDT Ayden Odom is a 38 y.o. female Chief Complaint Patient presents with Abdominal Pain pt says she has right sided abdominal pain and when she has a bm it hurts in t hat area, pt says she when she eats her stomach cramps, pt says that it has been off and on for the last week, pt say it does not matter what she eats she is ahuja ving pain Has not gotten any better Nausea alson with the abd pain Diarrhea Numbness in arms and legs, pt says that they are going to sleep Visual Problems pt says that she is having problems seeing when she is focusing on objects ROS neg except for the above mentioned I have reviewed the patient's past medical, surgical and family history in [facility] and updated the computerized patient record. OBJECTIVE: Physical Exam: BP 92/58 | Pulse 80 | Temp(Src) 98.3 F (36.8 C) (Tympanic) | LMP Hysterectom y General appearance: alert, in no distress Lungs: clear to auscultation bilaterally, normal respiratory effort Heart: normal rate, regular rhythm, normal S1, S2, no murmurs, rubs, clicks or g allops Abdomen: abnormal findings: tenderness mild diffuse Extremities: extremities normal, atraumatic, no cyanosis or edema, intact distal pulses, moves all extremities equally, no edema, redness or tenderness in the c addison or thighs, normal strength, normal tone ASSESSMENT: Encounter Diagnosis Name Primary? Abdominal Pain, Generalized Yes PLAN: Orders Placed This Encounter Xr abdomen acute series w cxr Cbc with differential Comprehensive metabolic panel Amylase Lipase Dicyclomine 20 mg tab Oxycodone-acetaminophen 10 mg-325 mg tab documented in this encounter Plan of Treatment Not on filedocumented as of this encounter Results * XR ABDOMEN ACUTE [...] clinical significance and orthopedic consultation is suggested. * LIPASE (10/02/2008 4:02 PM CDT) LIPASE 225Comment: [facility]SONJaredCATAW[facility] VALLEY MED[facility] CENTERSIOMARA,[place] 114 - 286 U/L [facility] ACCT#[id number], ,,,, CENTER [facility] Specimen Blood specimen (specimen) Performing Organization Address City/State/Zipcode Ph one Number INTERFACE SYSTEM [facility] CLIA# [id number] Milly RIOJAS S [address] REBA LAB [address] [facility] * AMYLASE (10/02/2008 4:02 PM CDT) AMYLASE 25Comment: [facility] 25 - 115 IU/L [facility] ACCT#[id number], ,,,, CENTER [facility] REBA LAB Specimen Blood specimen (specimen) Performing Organization Address City/State/Zipcode Ph one Number [facility] ALYSA [place]ENT[place]# [id number] Milly RIOJAS S [address] REBA LAB [address] [facility] * COMPREHENSIVE METABOLIC PANEL (10/02/2008 4:02 PM CDT) GLUCOSE 136 (H) 70 - 110 mg/dl [facility] BUN 13.0 7 - 20 mg/dl [facility] CREATININE 0.90 0.6 - 1.0 mg/dl [facility] BUN/CREAT RATIO 14.4 10 - 20 [facility] GFR 75 >90 ml/min [facility] SODIUM 136 135 - 145 mmol/L [facility] POTASSIUM 3.6 3.3 - 4.8 mmol/L [facility] CHLORIDE 103 98 - 107 mmol/L [facility] CO2 22.3 22 - 31 mmol/L [facility] ANION GAP 14 4 - 20 [facility] CALCIUM 8.1 (L) 8.5 - 10.1 mg/dl [facility] ALBUMIN 3.2 (L) 3.4 - 5.0 g/dl [facility] TOTAL PROTEIN 7.1 6.4 - 8.2 g/dl [facility] GLOBULIN (CALC) 3.9 [facility] ALBUMIN/GLOBULI 0.8 [facility] BILIRUBIN TOTAL 0.2 <1.1 mg/dl [facility] ALKALINE 122 50 - 136 IU/L [facility] AST 14 10 - 40 IU/L [facility] ALT 38Comment: [place] 25 - 70 IU/L M [facility] ACCT#[id number], ,,,, [facility] Specimen Blood specimen (specimen) Performing Organization Address City/[facility] Ph one Number INTERFACE SYSTEM [facility] CLIA# [id number] Milly RIOJAS [id number] REBA LAB [address] [facility] * CBC WITH DIFFERENTIAL (10/02/2008 4:02 PM CDT) WBC 9.67 3.0 - 10.4 x10E3 [facility] RBC 4.33 3.77 - 4.97 x10E6 [facility] HEMOGLOBIN 13.9 11.9 - 15.0 g/dL [facility] HEMATOCRIT 39.8 34.4 - 43.6 % [facility] MCV 91.9 79 - 100 fL [facility] MCH 32.0 28 - 34 pg [facility] MCHC 34.8 33 - 36 g/dL [facility] RDW 13.9 11.5 - 15.1 % [facility] PLATELETS 174 148 - 408 x10E3 [facility] MPV 8.0 7.4 - 10.6 fL [facility] NEUTROPHILS 63.3 43 - 73 % [facility] LYMPHOCYTES 29.7 19 - 47 % [facility] MONOCYTES 4.8 3 - 9 % [facility] EOSINOPHILS 1.9 0 - 6 % [facility] BASOPHILS 0.3 0 - 1.2 % [facility] NEUTROPHIL 6.12 1.3 - 7.6 x10E3 [facility] LYMPHOCYTE 2.87 0.6 - 4.9 x10E3 [facility] MONOCYTE 0.46 0.1 - 0.9 x10E3 [facility] EOSINOPHIL 0.19 0.0 - 0.2 x10E3 [facility] BASOPHILS 0.03Comment: [facility],[place] 0 - 0.1 x10E3 [facility] ACCT#[id number], ,,,, [facility] Specimen Blood specimen (specimen) Performing Organization Address City/State/Zipcode Ph one Number INTERFACE SYSTEM [facility]# [id number] Milly RIOJAS [address] REBA LAB [address] [facility] documented in this encounter Visit Diagnoses Diagnosis Abdominal pain, generalized - Primary documented in this encounter"
--- OUTSIDE RECORDS SUMMARY | 2019-10-21 18:44 | XMS REPORT | Encounter Summary ---
Author Author [facility] Organization [facility] Address Unknown Phone Unavailable Care Team Providers Care Humanities Professor Name Role Phone PCP Unavailable Reason for Visit * Reason Comments Nasal Congestion seen by PCP yesterday sxs g etting progressively worse. Vomiting Diarrhea Cough with chest congestion Encounter Details Care Team Description Date Type Department Esophagitis; Gastritis 08/14/2008 Emergency [facility] Emergency Department [address] [address] Social History Date Tobacco Use [...] Signs Reading Time Taken Comments Vital Sign 101/68 08/14/2008 10:34 AM CDT Blood Pressure 85 08/14/2008 10:34 AM CDT Pulse 36.5 C (97.7 F) 08/14/2008 10:34 AM CDT Temperature 18 08/14/2008 10:34 AM CDT Respiratory Rate 97% 08/14/2008 10:34 AM CDT Oxygen Saturation - - Inhaled Oxygen Concentration - - Weight - - Height - - Body Mass Index documented in this encounter Discharge Instructions * Instructions* Emy Bran ARNP - 08/14/2008 * Attachments The following attachments cannot be sent through Care Everywhere.* Gastritis: After Your Visit documented in this encounter Medications at Time of Discharge Start Date End Date Medication Sig Dispensed Refills 10/05/2007 Oxygen-Air Delivery Take 2 L/min 0 Systems Misc Leisa by inhalation daily at bedtime. 10/05/2007 ACCU-CHEK ACTIVE CARE by See Admin 0 Misc Kit Instructions route. Before meals, at bedtime, and as needed 08/14/2008 12/17/2008 promethazine (PHENERGAN) Take 1 Tab by 30 Tab 0 12.5 mg Oral Tab mouth every 6 hours as needed. 08/13/2008 09/10/2008 ropinirole (REQUIP) 1 mg Take 1 Tab by 30 Tab 0 Oral Tab mouth daily at bedtime. 08/13/2008 08/28/2008 OXYCODONE Take 1 Tab by 30 Tab 0 HCL/ACETAMINOPHEN mouth every 8 (OXYCODONE-ACETAMINOPHEN) hours as 5-325 mg Oral Tab needed for Pain. 08/06/2008 08/28/2008 OXYCODONE HCL (OXYCODONE Take 1 Tab by 30 Tab 0 CR) 20 mg Oral Tb12 mouth every 12 hours. 08/03/2008 06/07/2009 ondansetron (ZOFRAN ODT) Take 1 Tab by 30 Tab 0 4 mg Oral TbDL mouth every 8 hours as needed for Nausea. 08/03/2008 08/21/2008 amphetamine-dextroampheta Take 1 Cap by 30 Cap 0 mine SR 24 hour (ADDERALL mouth daily XR) 20 mg Oral early [id number]: ADHD morning. For adhd 07/28/2008 11/27/2008 zolpidem (AMBIEN) 10 mg Take 1 Tab by 30 Tab 2 Oral Tab mouth nightly as needed for Insomnia. 07/22/2008 03/12/2009 albuterol-ipratropium Take 2 Puffs 1 Inhaler 5 (COMBIVENT) 103-18 by inhalation mcg/Actuation Inhalation every 6 Aero hours. 07/20/2008 08/31/2008 lorazepam (ATIVAN) 1 mg Take 1 Tab by 30 Tab 0 Oral Tab mouth every 8 hours as needed for Other (See Comment). anxiety 07/15/2008 11/04/2008 olanzapine (ZYPREXA) 5 mg Take [...] Tab 3 Oral Tab mouth daily. 05/06/2008 09/10/2008 DEPAKOTE 500 mg Oral TbEC Take 1 Tab by 60 Tab 2 mouth 2 times daily. 05/06/2008 12/02/2008 citalopram (CELEXA) 40 mg Take 1 Tab by 30 Tab 5 Oral Tab mouth daily. 08/19/2008 CYMBALTA 60 mg Oral CpDR Take 60 mg by 0 mouth daily. 10/31/2007 12/02/2009 DUONEB IN Take by 0 inhalation every 6 hours. 10/31/2007 09/18/2008 ADVAIR DISKUS 500-50 Take 1 Puff 0 mcg/Dose Inhalation DsDv by inhalation 2 times daily. documented as of this encounter ED Notes * Maverickk Ari Lemons Physician - 08/17/2008 10:33 AM CDT * Elizabeth Blood RN - 08/14/2008 12:05 PM CDT Pt drank 1/2 Sprite no complaints of N Or V. * Elizabeth Blood RN - 08/14/2008 11:44 AM CDT Pt was sleeping when entered the room to administer Zofran. * Emy Bran ARNP - 08/14/2008 10:36 AM CDT HISTORY OF PRESENT ILLNESS Ayden Odom, a 38 y.o. female presents to the ED with a Chief Complaint o f Nasal Congestion, Vomiting, Diarrhea and Cough HPI Comments: Was into see Dr Durbin yesterday. The history is provided by the patient. REVIEW OF SYSTEMS Review of Systems Constitutional: Negative for fever and chills. Respiratory: Positive for cough. Cardiovascular: Negative for chest pain. Gastrointestinal: Positive for nausea, vomiting and diarrhea. Genitourinary: Negative for dysuria and urgency. PAST MEDICAL HISTORY REVIEWED Past Medical History [...] Sexually Active: Yes -- Female partner(s) ALLERGIES Hydrocodone, Aloe vera, Tape and Doxycycline HOME MEDICATIONS esomeprazole (NEXIUM) 40 mg Oral CpDR Take [...] by mouth every 6 hours as needed. ropinirole (REQUIP) 1 mg Oral Tab Take 1 Tab by mouth daily at bedtime. OXYCODONE HCL/ACETAMINOPHEN (OXYCODONE-ACETAMINOPHEN) 5-325 mg Oral Tab Take 1 Tab by mouth every 8 hours as needed for Pain. OXYCODONE HCL (OXYCODONE CR) 20 mg Oral Tb12 Take 1 Tab by mouth every 12 ho urs. ondansetron (ZOFRAN ODT) 4 mg Oral TbDL Take 1 Tab by mouth every 8 hours as needed for Nausea. 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 For adhd zolpidem (AMBIEN) 10 mg Oral Tab Take 1 Tab by mouth nightly as needed for I nsomnia. albuterol-ipratropium (COMBIVENT) 103-18 mcg/Actuation Inhalation Aero Take 2 Puffs by inhalation every 6 hours. lorazepam (ATIVAN) 1 mg Oral Tab Take 1 Tab by mouth every 8 hours as needed for Other (See Comment). anxiety olanzapine (ZYPREXA) 5 mg Oral Tab Take 1 Tab by mouth daily at bedtime. LIDOCAINE/PRILOCAINE (LIDOCAINE-PRILOCAINE) 2.5-2.5 % Topical Crea Apply to affected area every 4 hours. phenytoin (DILANTIN EXTENDED) 100 mg Oral Cap [...] Administer 2 Sprays in each nostril daily. DEPAKOTE 500 mg Oral TbEC Take 1 Tab by mouth 2 times daily. citalopram (CELEXA) 40 mg Oral Tab Take 1 Tab by mouth daily. CYMBALTA 60 mg Oral CpDR Take 60 mg by mouth daily. Oxygen-Air Delivery Systems Misc [...] Puff by inhalation 2 ti mes daily. DISCONTD: promethazine (PHENERGAN) 12.5 mg Oral Tab Take 1 Tab by mouth ever y 6 hours as needed. PHYSICAL EXAM Initial Vitals BP -- Pulse -- Resp -- Temp -- Temp src -- SpO2 -- Physical Exam Constitutional: She is oriented. She [...] Reviewed: nursing note and vitals DIAGNOSTICS LAB: Results for orders placed during the hospital encounter of 08/14/2008 (from the past 24 hour(s)) CBC WITH MANUAL DIFFERENTIAL Component Value Range BASOPHILS 1 0-2 (%Manual) BANDS 1 0-22 (%Manual) NEUTROPHILS, SEG 59 30-68 (%Manual) LYMPHOCYTES 31 14-50 (%Manual) MONOCYTE 8 0-11 (%Manual) PLATELET EST. Normal - WBC ESTIMATE Normal - WBC 8.07 3.0-10.4 (x10E3) RBC 4.28 3.77-4.97 (x10E6) HEMOGLOBIN 14.0 11.9-15.0 (g/dL) HEMATOCRIT 39.9 34.4-43.6 (%) MCV 93.2 79-100 (fL) MCH 32.7 28-34 (pg) MCHC 35.1 33-36 (g/dL) RDW 13.5 11.5-15.1 (%) PLATELETS 199 148-408 (x10E3) MPV 8.8 7.4-10.6 (fL) NEUTROPHILS 63.0 43-73 (%) LYMPHOCYTES 27.9 19-47 (%) MONOCYTES 6.4 3-9 (%) EOSINOPHILS 2.3 0-6 (%) BASOPHILS 0.4 0-1.2 (%) NEUTROPHIL ABSOLUTE 5.09 1.3-7.6 (x10E3) LYMPHOCYTE ABSOLUTE 2.25 0.6-4.9 (x10E3) MONOCYTE ABSOLUTE 0.52 0.1-0.9 (x10E3) EOSINOPHIL ABSOLUTE 0.18 0.0-0.2 (x10E3) BASOPHILS ABSOLUTE 0.03 0-0.1 (x10E3) COMPREHENSIVE METABOLIC PANEL Component Value Range GLUCOSE 96 70-110 (mg/dl) BUN 16.0 7-20 (mg/dl) CREATININE 0.80 0.6-1.0 (mg/dl) BUN/CREAT RATIO 20.0 10-20 GFR 86 - (ml/min) SODIUM 140 135-145 (mmol/L) POTASSIUM 4.1 3.3-4.8 (mmol/L) CHLORIDE 108 (*) 98-107 (mmol/L) CO2 22.4 22-31 (mmol/L) ANION GAP 14 4-20 CALCIUM 8.7 8.5-10.1 (mg/dl) ALBUMIN 3.3 (*) 3.4-5.0 (g/dl) TOTAL PROTEIN 7.1 6.4-8.2 (g/dl) GLOBULIN (CALC) 3.8 - ALBUMIN/GLOBULIN RATIO 0.9 - BILIRUBIN TOTAL 0.1 - (mg/dl) ALKALINE PHOSPHATASE 138 (*) 50-136 (IU/L) AST 19 10-40 (IU/L) ALT 32 25-70 (IU/L) VALPROIC ACID LEVEL, TOTAL Component Value Range VALPROIC ACID TOTAL 49.3 (*) 50-100 (ug/ml) PROTIME-INR Component Value Range PROTIME 19.4 (*) 9.5-11.5 (Sec) INR 1.93 (*) 2.0-3.0 RADIOLOGY: XR CHEST PA AND LATERAL (Results Pending) No acute changes PROCEDURES Pt given zofran sl in ed, able to keep fluids down well in ed MEDICAL DECISION MAKING AND PLAN OF CARE Last vitals BP 101/68 | Pulse 85 | Temp(Src) 97.7 F (36.5 C) (Oral) | Resp 18 | SpO2 97% | LMP Hysterectomy CLINICAL IMPRESSION Encounter Diagnoses Code Name Primary? 530.10C Esophagitis 535.50H Gastritis CASE DISCUSSED PATIENT COUNSELING Diagnostics reviewed and questions answered. Diagnosis, treatment options and p radha of care discussed with understanding verbalized. DISPOSITION, EDUCATION AND MEDICATION RECONCILIATION Medications reconciled. See after visit summary for patient education on discha rged patients. * Reba Cruz, EMT-P - 08/14/2008 10:32 AM CDT Pt been sick for the last week. Last night pt started getting worse. This morn ing pt now has laryngitis and c/o sore throat and dyspnea. She states that she has chest pain when she coughs as well. Pt has taken tylenol 500mg this morning at 0730 which has taken her fever away. Pt is currently afebrile. Pt's cough is productive. States its been greenish in color. documented in this encounter Plan of Treatment Not on filedocumented as of this encounter Procedures Comments Procedure Name Priority Date/Time Associated Diag nosis PROTIME-INR Stat 08/14/2008 11:21 AM CDT XR CHEST PA AND LATERAL 2 Stat 08/14/2008 VW 11:09 AM CDT CBC WITH MANUAL Stat 08/14/2008 DIFFERENTIAL 10:46 AM CDT VALPROIC ACID LEVEL, Stat 08/14/2008 TOTAL 10:46 AM CDT COMPREHENSIVE METABOLIC Stat 08/14/2008 PANEL 10:46 AM CDT documented in this encounter Results * PROTIME-INR (08/14/2008 11:21 AM CDT) PROTIME 19.4 (H) 9.5 - 11.5 Sec [facility] INR 1.93 (L)Comment: 2.0 - 3.0 [facility] ACCT#[id number], ,,,, REBA LAB Specimen Blood specimen (specimen) Performing Organization Address [facility] one Number INTERFACE [facility]# [id number] Milly RIOJAS [address] REBA LAB [address] [place] [address] * XR CHEST PA AND LATERAL (08/14/2008 11:09 AM CDT) Specimen Impressions Performed At : No acute abnormalities identified in th e chest. Narrative Performed At CHEST PA and lateral views of the chest were obtained for evaluation for chest pain. Comparison is made with 07/31/2008. Cardiac size, pulmonary vessels and med iastinal structures appear within normal limits. The lungs appear clear of acute infiltrates and there are no pleural effusions or pneumothoraces identified. Procedure Note Macho Barrios MD - 08/14/2008 1:29 PM CDT CHEST PA and lateral views of the chest were obtained for evaluation for chest pain. Comparison is made with 07/31/2008. Cardiac size, pulmonary vessels and mediastinal structures appear within normal limits. The lungs appear clear of acute infiltrates and there are no pleural effusions or pneumothoraces identified. IMPRESSION: No acute abnormalities identified in the chest. * VALPROIC ACID LEVEL, TOTAL (08/14/2008 10:46 AM CDT) VALPROIC ACID 49.3 (L)Comment: 50 - 100 ug/ml [facility] ACCT#[id number], ,,,, REBA LAB Specimen Blood specimen (specimen) Performing Organization Address [facility] one Number [facility] ALYSA [place]# [id number] Milly RIOJAS [id number] RE[address] [place] [address] * COMPREHENSIVE METABOLIC PANEL (08/14/2008 10:46 AM CDT) GLUCOSE 96 70 - 110 mg/dl [facility] BUN 16.0 7 - 20 mg/dl [facility] CREATININE 0.80 0.6 - 1.0 mg/dl [facility] BUN/CREAT RATIO 20.0 10 - 20 [facility] GFR 86 >90 ml/min [facility] SODIUM 140 135 - 145 mmol/L [facility] POTASSIUM 4.1 3.3 - 4.8 mmol/L [facility] CHLORIDE 108 (H) 98 - 107 mmol/L [facility] CO2 22.4 22 - 31 mmol/L [facility] ANION GAP 14 4 - 20 [facility] REBA LAB CALCIUM 8.7 8.5 - 10.1 mg/dl [facility] ALBUMIN 3.3 (L) 3.4 - 5.0 g/dl [facility] TOTAL PROTEIN 7.1 6.4 - 8.2 g/dl [facility] GLOBULIN (CALC) 3.8 [facility] ALBUMIN/GLOBULI 0.9 [facility] BILIRUBIN TOTAL 0.1 <1.1 mg/dl [facility] ALKALINE 138 (H) 50 - 136 IU/L [facility] PHOSPHATASE [facility] AST 19 10 - 40 IU/L [facility] ALT 32Comment: [facility] 25 - 70 IU/L [facility] ACCT#[id number], ,,,, CENTER [facility] Specimen Blood specimen (specimen) Performing Organization Address City/State/Zipcode Ph one Number INTERFACE SYSTEM [facility] ALYSA [place]ERARD[place]# [id number] Milly RIOJAS S [address] REBA LAB 401 [facility] * CBC WITH MANUAL DIFFERENTIAL (08/14/2008 10:46 AM CDT) BASOPHILS 1 0 - 2 %[facility] BANDS 1 0 - 22 %[facility] NEUTROPHILS, 59 30 - 68 %Manual [facility] LYMPHOCYTES 31 14 - 50 %[facility] REBA LAB MONOCYTE 8 0 - 11 %[facility] REBA LAB PLATELET EST. Normal [facility] WBC ESTIMATE Normal [facility] WBC 8.07 3.0 - 10.4 x10E3 [facility] RBC 4.28 3.77 - 4.97 x10E6 [facility] HEMOGLOBIN 14.0 11.9 - 15.0 g/dL [facility] HEMATOCRIT 39.9 34.4 - 43.6 % [facility] MCV 93.2 79 - 100 fL [facility] MCH 32.7 28 - 34 pg [facility] MCHC 35.1 33 - 36 g/dL [facility] RDW 13.5 11.5 - 15.1 % [facility] PLATELETS 199 148 - 408 x10E3 [facility] MPV 8.8 7.4 - 10.6 fL [facility] NEUTROPHILS 63.0 43 - 73 % [facility] LYMPHOCYTES 27.9 19 - 47 % [facility] MONOCYTES 6.4 3 - 9 % [facility] EOSINOPHILS 2.3 0 - 6 % [facility] BASOPHILS 0.4 0 - 1.2 % [facility] NEUTROPHIL 5.09 1.3 - 7.6 x10E3 [facility] REBA LAB LYMPHOCYTE 2.25 0.6 - 4.9 x10E3 [facility] MONOCYTE 0.52 0.1 - 0.9 x10E3 [facility] EOSINOPHIL 0.18 0.0 - 0.2 x10E3 [facility] BASOPHILS 0.03Comment: CLEMENTE ROBISON 0 - 0.1 x10E3 [facility] ACCT#[id number], ,,,, CENTER [facility] Specimen Blood specimen (specimen) Performing Organization Address City/State/Zipcode Ph one Number INTERFACE SYSTEM [facility] AL[facility] GERARDO# [id number] Milly RIOJAS [id number] REBA LUA [address] [facility] documented in this encounter Visit Diagnoses Diagnosis Esophagitis Esophagitis, unspecified Gastritis Unspecified gastritis and gastroduodeni tis without mention of hemorrhage documented in this encounter Administered Medications Action Date Dose Rate Site Medication Order MAR Action 08/14/2008 11:44 AM CDT 8 mg ondansetron (ZOFRAN ODT) tablet 8 mg Given 8 mg, Sublingual, ONE TIME ONLY, 1 dose , Sun08/14/08 at 1115, Stat documented in this encounter"
--- OUTSIDE RECORDS SUMMARY | 2019-10-21 18:44 | XMS REPORT | Encounter Summary ---
Author Author [facility] Organization [facility] Address Unknown Phone Unavailable Care Team Providers Care Grubber Name Role Phone PCP Unavailable Reason for Visit * Reason Comments Back Pain lower back pain radiates do wn leg Encounter Details Care Team Description Date Type Department Becka Watters, REAL ESTATE SITE ANALYST [address] [place] [address] Chronic Low Back Pain (Primary Dx) 08/27/2008 Office Visit [address] [address] Social History Date Tobacco Use [...] Vital Sign - - Blood Pressure 103 08/27/2008 8:01 PM CDT Pulse 37.1 C (98.8 F) 08/27/2008 8:01 PM CDT Temperature - - Respiratory Rate 98% 08/27/2008 8:01 PM CDT Oxygen Saturation - - Inhaled Oxygen Concentration - - Weight - - Height - - Body Mass Index documented in this encounter Progress Notes * Becka Watters - 08/28/2008 12:04 AM CDT S: Patient comes into the clinic today for back pain. She was seen by Dr. Santosh de la paz on 08/25, ER 08/26 and here in Urgent Care today for the same problem. States not improving, getting worse. O: Patient sitting in a swheelchair. On exam of the back, she states severe pa in to palpation in the LS spine area and radiates to her left leg. A: Chronic back pain P: Toradol 15 mg IM with MS 2 mg IM. She must return to her primary physician for further care of this problem. documented in this encounter Plan of Treatment Not on filedocumented as of this encounter Visit Diagnoses Diagnosis Chronic low back pain - Primary Lumbago documented in this encounter
--- OUTSIDE RECORDS SUMMARY | 2019-10-21 18:44 | XMS REPORT | Encounter Summary ---
Author Author [facility] Organization [facility] Address Unknown Phone Unavailable Care Team Providers Care Taper And Floater Name Role Phone PCP Unavailable Reason for Visit * Reason Comments Back Pain lower back pain and pt says that her legs and feet are going to sleep and she has to walk with crutches all the t dipak at [facility] Medication Refill lorazapam and adderral, hus band says that he lost it Encounter Details Care Team Description Date Type Department Maurice Durbin MD [address] [place] [address] DM w/o Complication Type II; Bipolar Disorder, Unspecified; Unspecified Hereditary and Idiopathic Peripheral Neuropathy; ADHD 08/31/2008 Office Visit [facility] Primar y [facility] [address] [place] [address] Social History Date Tobacco Use [...] Reading Time Taken Comments Vital Sign 114/72 08/31/2008 10:40 AM CDT Blood Pressure 100 08/31/2008 10:40 AM CDT Pulse 36.9 C (98.4 F) 08/31/2008 10:40 AM CDT Temperature - - Respiratory Rate - - Oxygen Saturation - - Inhaled Oxygen Concentration - - Weight - - Height - - Body Mass Index documented in this encounter Progress Notes * Maurice Durbin MD - 08/31/2008 12:54 PM CDT Ayden Odom is a 38 y.o. female Patient presents with Back Pain lower back pain and pt says that her legs and feet are going to sleep and she has to walk with crutches all the time at [facility] Pain is not controled with tthe 5/325 of the percocet explained that we can incr ease the dosage and see how she does with this ROS neg except for the above mentioned I have reviewed the patient's past medical, surgical and family history in [facility] and updated the computerized patient record. OBJECTIVE: Physical Exam: No exam is done ASSESSMENT: Encounter Diagnoses Name Primary? DM w/o Complication Type II Bipolar Disorder, Unspecified Unspecified Hereditary and Idiopathic Peripheral Neuropathy ADHD PLAN: Orders Placed This Encounter Oxycodone-acetaminophen 10 mg-325 mg tab Amphetamine-dextroamphetamine sr 20 mg 24 hr cap Lorazepam 1 mg tab follow up 10 days documented in this encounter Plan of Treatment Not on filedocumented as of this encounter Visit Diagnoses Diagnosis Type II or unspecified type diabetes me llitus without mention of complication, not stated as uncontrolled Bipolar disorder, unspecified Unspecified hereditary and idiopathic p eripheral neuropathy ADHD Attention deficit disorder with hyperac tivity documented in this encounter
--- OUTSIDE RECORDS SUMMARY | 2019-10-21 18:44 | XMS REPORT | Encounter Summary ---
Author Author [facility] Organization [facility] Address Unknown Phone Unavailable Care Team Providers Care Director Alumni Relations Name Role Phone PCP Unavailable Reason for Visit * Reason Comments Insomnia Headache Pain hips and back Shaking pt she is getting shakes, s he thinks it might be from the medicine Diarrhea Vomiting Encounter Details Care Team Description Date Type Department Maurice Durbin MD [address] [place] [address] Bipolar Disorder, Unspecified; Unspecified Hereditary and Idiopathic Peripheral Neuropathy 08/13/2008 Office Visit [facility] [address] [place] [address] Social History Date Tobacco Use [...] Reading Time Taken Comments Vital Sign 102/62 08/13/2008 10:24 AM CDT Blood Pressure 100 08/13/2008 10:24 AM CDT Pulse 37.1 C (98.8 F) 08/13/2008 10:24 AM CDT Temperature - - Respiratory Rate - - Oxygen Saturation - - Inhaled Oxygen Concentration - - Weight - - Height - - Body Mass Index documented in this encounter Progress Notes * Maurice Durbin MD - 08/19/2008 3:04 PM CDT Jokalyan Odom is a 38 y.o. female Chief Complaint Patient presents with Insomnia Headache Pain hips and back Shaking pt she is getting shakes, she thinks it might be from the medicine Diarrhea Vomiting was fired by dr dia and i have explained to her that she needs to find a th erapist per out agreement last year will try her on requip for the muscle pains ROS neg except for the above mentioned I have reviewed the patient's past medical, surgical and family history in [facility] and updated the computerized patient record. OBJECTIVE: Physical Exam: BP 102/62 | Pulse 100 | Temp(Src) 98.8 F (37.1 C) (Tympanic) | LMP Hysterect lily General appearance: alert, in no distress Lungs: clear to auscultation bilaterally, normal respiratory effort Heart: normal rate, regular rhythm, normal S1, S2, no murmurs, rubs, clicks or g allops Abdomen: Soft, non-tender. Bowel sounds normal. No masses, no organomegaly. ASSESSMENT: Encounter Diagnoses Name Primary? Bipolar Disorder, Unspecified Unspecified Hereditary and Idiopathic Peripheral Neuropathy PLAN: Orders Placed This Encounter Ropinirole 1 mg tab Oxycodone-acetaminophen 5 mg-325 mg tab follow up 1 week documented in this encounter Plan of Treatment Not on filedocumented as of this encounter Visit Diagnoses Diagnosis Bipolar disorder, unspecified Unspecified hereditary and idiopathic p eripheral neuropathy documented in this encounter"
--- OUTSIDE RECORDS SUMMARY | 2019-10-21 18:44 | XMS REPORT | Encounter Summary ---
Author Author [facility] Organization [facility] Address Unknown Phone Unavailable Care Team Providers Care Icu Nurse Name Role Phone PCP Unavailable Reason for Visit * Reason Comments Back Pain Encounter Details Care Team Description Date Type Department Helio Santacruz MD [address] [facility] [address] [place] [address] 08/26/2008 Emergency [facility] Emergency Department [address] [address] Social History Date Tobacco Use [...] Signs Reading Time Taken Comments Vital Sign 138/91 08/26/2008 2:49 AM CDT Blood Pressure 115 08/26/2008 2:49 AM CDT Pulse 36.4 C (97.5 F) 08/26/2008 2:49 AM CDT Temperature 22 08/26/2008 2:49 AM CDT Respiratory Rate 98% 08/26/2008 2:49 AM CDT Oxygen Saturation - - Inhaled Oxygen Concentration 125.2 kg (276 lb) 08/26/2008 2:49 AM CDT Weight 160 cm (5' 3") 08/26/2008 2:49 AM CDT Height 48.89 08/26/2008 2:49 AM CDT Body Mass Index documented in this encounter Discharge Instructions * Attachments The following attachments cannot be sent through Care Everywhere.* Sciatica: After Your Visit * Back Pain, Emergency or Urgent Symptoms: After Your Visit documented in this encounter Medications at Time of Discharge Start Date End Date Medication Sig Dispensed Refills 10/05/2007 Oxygen-Air Delivery Take 2 L/min 0 Systems Misc Leisa by inhalation daily at bedtime. 10/05/2007 ACCU-CHEK ACTIVE CARE by See Admin 0 Misc Kit Instructions route. Before meals, at bedtime, and as needed 08/21/2008 08/31/2008 amphetamine-dextroampheta Take 1 Cap by 30 Cap 0 mine SR 24 hour (ADDERALL mouth daily XR) 20 mg Oral early [id number]: ADHD morning. For adhd 08/19/2008 10/12/2008 duloxetine (CYMBALTA) 30 Take 1 [...] Notes * Aok Scanning, Amb Physician - 11/20/2008 11:47 AM CDT * Aok Scanning, Amb Physician - 08/26/2008 2:37 PM CDT * Jhon Elliott, EMT-P - 08/26/2008 3:53 AM CDT Pt states that her pain seems to be under control and that she is ready to go. D ischarge orders recived from . Pt sings instructions and is taken to he r car via w/c in car of family member documented in this encounter Plan of Treatment Not on filedocumented as of this encounter Visit Diagnoses Not on filedocumented in this encounter Administered Medications Action Date Dose Rate Site Medication Order MAR Action 08/26/2008 3:42 AM CDT 60 mg Vastus L ateralis, Left ketorolac (TORADOL) injection 60 mg Given 60 mg, IM, ONE TIME ONLY, 1 dose, Sun08/26/08 at 0345, Routine KETOROLAC TROMETHAMINE 60 MG/2 ML IM 1 dose, Starting Sun08/26/08 at 0336, Until Sun08/26/08 at 0342, Buck KRISHNA: Cabinet Override, 08/26/2008 3:42 AM CDT 2 mg Ventrogl uteal, Right MORphine 2 mg/mL injection 2 mg Given 2 mg, IV, ONE TIME ONLY, 1 dose, Sun08/26/08 at 0345, Routine MORPHINE 2 MG/ML SYRINGE 1 dose, Starting Sun08/26/08 at 0335, Until Sun08/26/08 at 0342, Buck KRISHNA: Cabinet Override, documented in this encounter
--- OUTSIDE RECORDS SUMMARY | 2019-10-21 18:44 | XMS REPORT | Encounter Summary ---
Author Author [facility] Organization [facility] Address Unknown Phone Unavailable Care Team Providers Care Axle Bearing Polisher Name Role Phone PCP Unavailable Reason for Visit * Reason Comments Sore Throat Sore throat and hoarse voic e. Fever. Fever Nasal Congestion Encounter Details Care Team Description Date Type Department Kashif Land PA [address] [place] [address] Acute Sinusitis (Primary Dx) 08/16/2008 Office Visit [facility] [address] [place] [address] Social History Date Tobacco Use [...] Comments Vital Sign - - Blood Pressure 102 08/16/2008 8:56 PM CDT Pulse 36.2 C (97.1 F) 08/16/2008 8:56 PM CDT Temperature - - Respiratory Rate 97% 08/16/2008 8:56 PM CDT Oxygen Saturation - - Inhaled Oxygen Concentration - - Weight - - Height - - Body Mass Index documented in this encounter Patient Instructions * Patient Instructions* Kashif Land PA - 08/25/2008 5:52 PM CDT Push fluids, Tylenol or Motrin for pain or fever, as needed. C DT documented in this encounter Progress Notes * Kashif Land, LEWIS - 08/25/2008 5:48 PM CDT HISTORY OF PRESENT ILLNESS Ayden Odom, a 38 y.o. female. Sore Throat This is a new problem. The current episode started more than 2 days ago. The pro blem has been gradually worsening. There has been no fever. Associated symptoms include congestion, headaches and cough. Pertinent negatives include no diarrhea , no vomiting, no ear discharge, no ear pain, no plugged ear sensation, no short ness of breath, no swollen glands, no trouble swallowing and no stiff neck. She has had no exposure to strep and no exposure to mono. She has tried acetaminophe n for the symptoms. The treatment provided mild relief. Fever Associated symptoms include congestion, headaches, sore throat and cough. Pertin ent negatives include no chest pain, no diarrhea and no vomiting. Nasal Congestion This is a new problem. The current episode started more than 2 days ago. The pro blem has been gradually worsening. There has been no fever. Associated symptoms include congestion, headaches, sore throat and cough. Pertinent negatives includ e no chest pain, no diarrhea, no nausea, no vomiting, no ear pain, no plugged ea r sensation, no swollen glands, no neck pain, no rash and no wheezing. She has t ried NSAIDs and increased fluids for the symptoms. The treatment provided mild r elief. REVIEW OF SYSTEMS Review of Systems Constitutional: Negative for fever and chills. HENT: Positive for congestion and sore throat. Negative for ear pain, trouble sw allowing, neck pain and ear discharge. Eyes: Negative for blurred vision, double vision and photophobia. Respiratory: Positive for cough and sputum production. Negative for shortness of breath and wheezing. Cardiovascular: Negative for chest pain. Gastrointestinal: Negative for nausea, vomiting and diarrhea. Skin: Negative for rash. Neurological: Positive for headaches. PHYSICAL EXAM Pulse 102 | Temp 97.1 F (36.2 C) | SpO2 97% | LMP Hysterectomy Physical Exam Constitutional: She is oriented. She appears well-developed and well-nourished. No distress. HENT: Head: Normocephalic and atraumatic. Right Ear: External ear normal. Left Ear: External ear normal. Nose: Nose normal. Mild erythema fo pharynx, tender to frontal sinus percussion. Eyes: Conjunctivae and extraocular motions are normal. Pupils are equal, round, and reactive to light. Neck: Normal range of motion. Neck supple. Cardiovascular: Normal rate, regular rhythm and normal heart sounds. Pulmonary/Chest: Effort normal and breath sounds normal. Musculoskeletal: Normal range of motion. Lymphadenopathy: She has no cervical adenopathy. Neurological: She is alert and oriented. Skin: Skin is warm and dry. No rash noted. ASSESSMENT and PLAN: Encounter Diagnoses Code Name Primary? Qualifier 461.9J Acute Sinusitis Yes Plan: AZITHROMYCIN 250 MG TAB, AZITHROMYCIN 250 MG TAB, HI ORAL PRESCRIP DRUG N ON CHEMO C DT documented in this encounter Plan of Treatment Not on filedocumented as of this encounter Visit Diagnoses Diagnosis Acute sinusitis - Primary Acute sinusitis, unspecified documented in this encounter"
--- OUTSIDE RECORDS SUMMARY | 2019-10-21 18:44 | XMS REPORT | Encounter Summary ---
Author Author [facility] Organization [facility] Address Unknown Phone Unavailable Care Team Providers Care Neonatal Critical Care Nurse Name Role Phone PCP Unavailable Reason for Visit * Reason Comments Leg Pain left side, knee to hip, sor e to touch, no reddness, hasn't fallend, happend about 3 days ago Encounter Details Care Team Description Date Type Department Kashif Land PA [address] [place] [address] Lower Back Pain; Leg Pain; Sciatica 09/07/2008 [facility] [address] [place] [address] Social History Date Tobacco Use [...] Comments Vital Sign - - Blood Pressure 100 09/07/2008 9:50 PM CDT Pulse - - Temperature - - Respiratory Rate 99% 09/07/2008 9:50 PM CDT Oxygen Saturation - - Inhaled Oxygen Concentration - - Weight - - Height - - Body Mass Index documented in this encounter Patient Instructions * Patient Instructions* Kashif Land PA - 09/08/2008 8:49 PM CDT Moist heat TID, Tylenol or Motrin for pain or fever, as needed. C DT documented in this encounter Progress Notes * Kashif Land, LEWIS - 09/08/2008 8:37 PM CDT HISTORY OF PRESENT ILLNESS Ayden Odom, a 38 y.o. female. Leg Pain This is a new problem. The current episode started more than 2 days ago. The pro blem occurs constantly. The problem has not changed since onset. The pain is pre sent in the left hip, left upper leg and back. The pain quality is described as aching. The pain is severe. Associated symptoms include limited range of motion and stiffness. Pertinent negatives include no numbness and no tingling. The symp toms are worsened by activity, standing and contact. She has tried OTC pain medi cations for the symptoms. The treatment provided mild relief. There has been no history of trauma. REVIEW OF SYSTEMS Review of Systems Constitutional: Positive for malaise/fatigue. Negative for fever and chills. HENT: Negative for neck pain. Respiratory: Negative for shortness of breath and wheezing. Gastrointestinal: Negative for nausea, vomiting, abdominal pain and diarrhea. Musculoskeletal: Positive for myalgias, back pain and joint pain. Skin: Negative for rash. Neurological: Negative for dizziness, tingling, numbness and headaches. PHYSICAL EXAM Pulse 100 | SpO2 99% | LMP Hysterectomy Physical Exam Nursing note and vitals reviewed. Constitutional: She is oriented. She appears well-developed and well-nourished. No distress. Obese. HENT: Head: Normocephalic and atraumatic. Right Ear: External ear normal. Left Ear: External ear normal. Eyes: Conjunctivae are normal. Pupils are equal, round, and reactive to light. Neck: Normal range of motion. Neck supple. Cardiovascular: Normal rate, regular rhythm and normal heart sounds. Pulmonary/Chest: Effort normal and breath sounds normal. Musculoskeletal: She exhibits tenderness. She exhibits no edema. Tender over lower left lumbar area, across left buttock and hip down to lef t lower leg. Good distal neurovascular function. Neurological: She is alert and oriented. Skin: Skin is warm and dry. No rash noted. ASSESSMENT and PLAN: Encounter Diagnoses Code Name Primary? Qualifier 724.2U Lower Back Pain Plan: HYDROCODONE-ACETAMINOPHEN 5 MG-325 MG TAB, KETOROLAC TROMETHAMINE 30 MG/M L INJECTION, KETOROLAC 30 MG/ML INJECTION, VT ORAL PRESCRIP DRUG NON CHEMO 729.5H Leg Pain Plan: HYDROCODONE-ACETAMINOPHEN 5 MG-325 MG TAB, KETOROLAC TROMETHAMINE 30 MG/M L INJECTION, KETOROLAC 30 MG/ML INJECTION, VT ORAL PRESCRIP DRUG NON CHEMO C DT documented in this encounter Plan of Treatment Not on filedocumented as of this encounter Visit Diagnoses Diagnosis Lower back pain Lumbago Leg pain Pain in limb Sciatica documented in this encounter"
--- OUTSIDE RECORDS SUMMARY | 2019-10-21 18:44 | XMS REPORT | Encounter Summary ---
Author Author [facility] Organization [facility] Address Unknown Phone Unavailable Care Team Providers Care Rouge Mixer Name Role Phone PCP Unavailable Reason for Visit * Reason Comments Medication Refill Encounter Details Care Team Description Date Type Department Teresa Stewart 08/28/2008 Refill [facility] Primar y Care [address] [id number] Social History Date Tobacco Use Types Packs/Day [...]
--- OUTSIDE RECORDS SUMMARY | 2019-10-21 18:44 | XMS REPORT | Encounter Summary ---
Author Author [facility] Organization [facility] Address Unknown Phone Unavailable Care Team Providers Care Bilingual Spanish Inbound Sales Name Role Phone PCP Unavailable Encounter Details Care Team Description Date Type Department Maurice Durbin MD [address] [place] [address] 08/21/2008 Abstract [facility] Primar y Care [place] [address] [place] [address] Social History Date Tobacco Use [...]
--- OUTSIDE RECORDS SUMMARY | 2019-10-21 18:44 | XMS REPORT | Encounter Summary ---
Author Author [facility] Organization [facility] Address Unknown Phone Unavailable Care Team Providers Care Jointer Machine Name Role Phone PCP Unavailable Reason for Visit * Reason Comments Medication Refill Encounter Details Care Team Description Date Type Department Maurice Durbin MD [address] [place] [address] ADHD 08/21/2008 Refill [facility] Primar y Care [place] [address] [place] [address] Social History Date Tobacco Use [...]
--- OUTSIDE RECORDS SUMMARY | 2019-10-21 18:44 | XMS REPORT | Encounter Summary ---
Author Author [facility] Organization [facility] Address Unknown Phone Unavailable Care Team Providers Care Financial Controller Name Role Phone PCP Unavailable Encounter Details Care Team Description Date Type Department Maurice Durbin MD [address] [place] [address] 08/14/2008 Abstract [facility] Primar y Care [place] [address] [place] [address] Social History Date Tobacco Use [...]
--- OUTSIDE RECORDS SUMMARY | 2019-10-21 18:44 | XMS REPORT | Encounter Summary ---
Author Author [facility] Organization [facility] Address Unknown Phone Unavailable Care Team Providers Care Internet Merchant Name Role Phone PCP Unavailable Reason for Visit * Reason Comments Follow Up 1 week follow up, says she is feeling better and the meds are working Medication Problem went to see lizette loredo and thinks that the cymbalta needs to be increased Encounter Details Care Team Description Date Type Department Maurice Durbin MD [address] [place] [address] DM w/o Complication Type II; Bipolar Disorder, Unspecified; Unspecified Hereditary and Idiopathic Peripheral Neuropathy 08/19/2008 Office Visit [facility] [address] [place] [address] Social History Date Tobacco Use [...] Signs Reading Time Taken Comments Vital Sign 104/76 08/19/2008 10:00 AM CDT Blood Pressure 90 08/19/2008 10:00 AM CDT Pulse 36.4 C (97.5 F) 08/19/2008 10:00 AM CDT Temperature - - Respiratory Rate - - Oxygen Saturation - - Inhaled Oxygen Concentration - - Weight - - Height - - Body Mass Index documented in this encounter Progress Notes * Maurice Durbin MD - 08/19/2008 1:54 PM CDT Ayden Odom is a 38 y.o. female Chief Complaint Patient presents with Follow Up 1 week follow up, says she is feeling better and the meds are working Medication Problem went to see lizette loredo and thinks that the cymbalta needs to be increased has been doing better no constipation on the percocet she denies any other prob lems did start seeing lizette remy and recommend an increase in the cymbalt a ROS neg except for the above mentioned I have reviewed the patient's past medical, surgical and family history in [facility] and updated the computerized patient record. OBJECTIVE: Physical Exam: BP 104/76 | Pulse 90 | Temp(Src) 97.5 F (36.4 C) (Tympanic) | LMP Hysterecto my General [...] normal tone ASSESSMENT: Encounter Diagnoses Name Primary? DM w/o Complication Type II Bipolar Disorder, Unspecified Unspecified Hereditary and Idiopathic Peripheral Neuropathy PLAN: Orders Placed This Encounter Duloxetine 30 mg cap, delayed release Duloxetine 60 mg cap, delayed release follow up 1 month documented in this encounter Plan of Treatment Not on filedocumented as of this encounter Visit Diagnoses Diagnosis Type II or unspecified type diabetes me llitus without mention of complication, not stated as uncontrolled Bipolar disorder, unspecified Unspecified hereditary and idiopathic p eripheral neuropathy documented in this encounter"
--- OUTSIDE RECORDS SUMMARY | 2019-10-21 18:44 | XMS REPORT | Encounter Summary ---
Author Author [facility] Organization [facility] Address Unknown Phone Unavailable Care Team Providers Care 8Th Grade Mathematics Teacher Name Role Phone PCP Unavailable Encounter Details Care Team Description Date Type Department Turner Cabral, [address] [place] [phone] [facility], Lab Schedule 08/06/2008 Hospital [facility] Encounter Laboratory Services [address] [address] Social History Date Tobacco [...] Before meals, at bedtime, and as needed 08/06/2008 08/28/2008 OXYCODONE HCL (OXYCODONE Take 1 Tab by 30 Tab 0 CR) 20 mg Oral Tb12 mouth every 12 hours. 08/03/2008 06/07/2009 ondansetron (ZOFRAN ODT) Take 1 Tab by 30 Tab 0 4 mg Oral TbDL mouth every 8 hours as needed for Nausea. 08/03/2008 08/14/2008 promethazine (PHENERGAN) Take 1 Tab by 30 Tab 0 12.5 mg Oral Tab mouth every 6 hours as needed. 08/03/2008 08/21/2008 amphetamine-dextroampheta Take 1 Cap by 30 Cap 0 mine SR 24 hour (ADDERALL mouth daily XR) 20 mg Oral early [id number]: ADHD morning. For adhd 07/31/2008 08/10/2008 famotidine (PEPCID) 20 mg Take 1 Tab by 20 Tab 0 Oral Tab mouth 2 times daily for 10 days. 07/28/2008 11/27/2008 zolpidem (AMBIEN) 10 mg Take [...] as needed for Other (See Comment). anxiety 07/20/2008 08/13/2008 pramipexole (MIRAPEX) Take 1 Tab by 30 Tab 0 0.25 mg Oral Tab mouth daily at bedtime. 07/15/2008 11/04/2008 olanzapine (ZYPREXA) 5 mg Take [...]
--- OUTSIDE RECORDS SUMMARY | 2019-10-21 18:44 | XMS REPORT | Encounter Summary ---
Author Author [facility] Organization [facility] Address Unknown Phone Unavailable Care Team Providers Care Logger Driving Horses Name Role Phone PCP Unavailable Encounter Details Care Team Description Date Type Department Maurice Durbin MD [address] [place] [address] 08/25/2008 [facility] Prim[facility] Care [place] [address] [place] [address] Social History Date Tobacco Use [...]
--- OUTSIDE RECORDS SUMMARY | 2019-10-21 18:44 | XMS REPORT | Encounter Summary ---
Author Author [facility] Organization [facility] Address Unknown Phone Unavailable Care Team Providers Care Audio Visual Director Name Role Phone PCP Unavailable Reason for Visit * Reason Comments Results pt. notified [place] for genetic testing. Encounter Details Care Team Description Date Type Department Bhakti Carballo Results (pt. notified that [place] does not pay for genetic testing.) 08/10/2008 Telephone [facility]3] Gladis flores [address] [address] Social History Date Tobacco Use [...]
--- OUTSIDE RECORDS SUMMARY | 2019-10-21 18:45 | XMS REPORT | Encounter Summary ---
Author Author [facility] Organization [facility] Address Unknown Phone Unavailable Care Team Providers Care Extrusion Die Corrector Name Role Phone PCP Unavailable Reason for Visit * Reason Comments Medication Refill Encounter Details Care Team Description Date Type Department Maurice Durbin MD [address] [place] [address] 07/15/2008 Refill [facility] Primar y Care [place] [address] [place] [address] Social History Date Tobacco Use Types Packs/Day Years Used Current Every Day Smoker Cigarettes 3 27 Comments: STARTED SMOKING AGE 11 Drinks/Week [...]
--- OUTSIDE RECORDS SUMMARY | 2019-10-21 18:45 | XMS REPORT | Encounter Summary ---
Author Author [facility] Organization [facility] Address Unknown Phone Unavailable Care Team Providers Care Matchbook Maker Name Role Phone PCP Unavailable Reason for Visit * Reason Comments Breast Exam, Routine, No rt. breast lump, cons. with dr. mayer Symptoms Encounter Details Care Team Description Date Type Department Turner Cabral DO [address] [place] [address] Lump or Mass in Breast (Primary Dx) 08/06/2008 Office Visit [address] [address] Social History Date Tobacco Use [...] Reading Time Taken Comments Vital Sign 100/70 08/06/2008 3:10 PM MOTOR TUNE UP SPECIALIST Blood Pressure 100 08/06/2008 3:10 PM MOTOR TUNE UP SPECIALIST Pulse 37 C (98.6 F) 08/06/2008 3:10 PM MOTOR TUNE UP SPECIALIST Temperature - - Respiratory Rate - - Oxygen Saturation - - Inhaled Oxygen Concentration - - Weight - - Height - - Body Mass Index documented in this encounter Progress Notes * Turner Cabral DO - 08/06/2008 3:51 PM MOTOR TUNE UP SPECIALIST Subjective: Jerald Feldmanon presents for consultation of a Right breast lump found on se lf exam at the request of Dr. Sun Onset of the symptoms was 7 days ago. Description of the breast symptoms: a maranda ast lump found on self exam. Relevant historical factors include: mother with paul moreno [place], onset age 37, type ductal. Previous evaluation has included mammogram (results: neg ) and ultrasound (results: neg). Recent treatment has included none. Patient Active Problem List Diagnoses Date Noted [...] Medication Sig Dispense Refill ondansetron (ZOFRAN ODT) 4 mg Oral TbDL Take 1 Tab by mouth every 8 hours as needed for Nausea. 30 Tab 0 promethazine (PHENERGAN) 12.5 mg Oral Tab Take 1 Tab by mouth every 6 hours as needed. 30 Tab 0 amphetamine-dextroamphetamine SR 24 hour (ADDERALL XR) 20 mg Oral Cp24 Take 1 Cap by mouth daily pension administrator. For adhd 30 Cap 0 methadone (DOLOPHINE) 10 mg Oral Tab Take 1 Tab by mouth 3 times daily. 90 Tab 0 famotidine (PEPCID) 20 mg Oral Tab Take 1 Tab by mouth 2 times daily for 10 days. 20 Tab 0 zolpidem (AMBIEN) 10 mg Oral Tab Take 1 Tab by mouth nightly as needed for I nsomnia. 30 Tab 2 albuterol-ipratropium (COMBIVENT) 103-18 mcg/Actuation Inhalation Aero Take 2 Puffs by inhalation every 6 hours. 1 Inhaler 5 lorazepam (ATIVAN) 1 mg Oral Tab Take 1 Tab by mouth every 8 hours as needed for Other (See Comment). anxiety 30 Tab 0 pramipexole (MIRAPEX) 0.25 mg Oral Tab Take 1 Tab by mouth daily at bedtime. 30 Tab 0 olanzapine (ZYPREXA) 5 mg Oral Tab Take 1 Tab by mouth daily at bedtime. 30 Tab 2 LIDOCAINE/PRILOCAINE (LIDOCAINE-PRILOCAINE) 2.5-2.5 % Topical Crea Apply to affected area every 4 hours. 1 Tube 0 phenytoin (DILANTIN EXTENDED) 100 mg Oral Cap Take 2 Caps by mouth 2 times d aily. 120 Cap 2 cyclobenzaprine (FLEXERIL) 10 mg Oral Tab Take 1 Tab by mouth every 8 hours as needed for Spasm for 90 doses. 30 Tab 2 topiramate (TOPAMAX) 100 mg Oral Tab Take 1 Tab by mouth 2 times daily. 60 Tab 2 levalbuterol HFA (XOPENEX HFA) 45 mcg/Actuation Inhalation HFAA Take 2 Puffs by inhalation every 6 hours. 1 Inhaler 5 warfarin (COUMADIN) 5 mg Oral Tab Take 1 Tab by mouth daily. 30 Tab 0 NEURONTIN 300 mg Oral Cap Take 900 mg by mouth 3 times daily. furosemide (LASIX) 40 mg Oral Tab Take 1 Tab by mouth daily. 30 Tab 3 fluticasone (FLONASE) 50 mcg/Actuation Both Nostril SpSn Administer 2 Sprays in each nostril daily. 1 Bottle 3 DEPAKOTE 500 mg Oral TbEC Take 1 Tab by mouth 2 times daily. 60 Tab 2 citalopram (CELEXA) 40 mg Oral Tab Take 1 Tab by mouth daily. 30 Tab 5 CYMBALTA 60 mg Oral CpDR Take 60 [...] Puff by inhalation 2 ti mes daily. Allergies Allergen Reactions Hydrocodone Nausea and Vomiting Aloe Vera Unknown Tape (Adhesive Tape) Other [...] Substance Use Topics Tobacco Use: Yes -- 3.0 packs/day for 27 years STARTED SMOKING AGE 11 Alcohol Use: No Review of Systems History obtained from the patient Respiratory ROS: positive for - dyspnea on exertion Cardiovascular ROS: negative Gastrointestinal ROS: positive for - gas/bloating and heartburn Objective: Physical Examination: BP 100/70 | Pulse 100 | Temp 98.6 F (37 C) | LMP Hysterectomy General appearance - alert, well appearing, and in no distress, overweight and c hronically ill appearing Breasts - lump 3 mm smooth areola on the right and nipples normal Neck - supple, no significant adenopathy Lymphatics - no hepatosplenomegaly, no palpable axillary lymphadenopathy bilater ally Chest - clear to auscultation, no rales or rhonchi, symmetric air entry, wheezin g noted small ammount. Heart - and regular rhythm, S1 and S2 normal, rapid rate Abdomen - soft, nontender, nondistended, no masses or organomegaly Assessment: breast mass, likely benign Plan: 1. fna today recheck in 3 months R TUNE UP SPECIALIST documented in this encounter Plan of Treatment Not on filedocumented as of this encounter Procedures Comments Procedure Name Priority Date/Time Associated Diag nosis PATHOLOGY Routine 08/06/2008 Lump or Mass in Breast 4:20 PM MOTOR TUNE UP SPECIALIST documented in this encounter Results * PATHOLOGY (08/06/2008 4:20 PM MOTOR TUNE UP SPECIALIST) CYTOLOGY, NON Name: JERALD VELAZQUEZ [facility] : PATHOLOGY 74 Location: [facility], [facility] SURG Sex: F Unit#: [id number] Room/Bed: Att: Turner Marrero D.O..O.SJose Carlos RECD: 08/06/08 PROCEDURE DATE: 08/06/08 DR: Turner Cabral D.O.OVishnu [facility]: ICD CODES: 611.72 PROCEDURES: [id number] LOCATION: [facility] MATERIAL SUBMITTED Fine needle aspiration, right breast. MICROSCOPIC DESCRIPTION The specimen consists of 6 smears and a thin layer prepartation. The smears are stained with a combination of Papanicolaou, Baugh-Giemsa and hematoxylin/eosion. The Baugh-Giemsa smears are moderately cellular while the other smears are very hypocellular. The epithelial cells that are present are generally arranged as tight, cohesive, organized groups with acinar and branching patterns. Features of malignancy are not identified. Dictated by:Saurabh Plata M.D. TD:08/07/08951 FSPTHGG CYTOLOGIC DIAGNOSIS Fine needle aspiration, right breast: Negative for malignancy. Dictated by: Saurabh Plata M.D. TD:08/07/08953 [facility] Signed (electronic signature) Clifford Plata M.D. 08/07/08955 END OF REPORT Comment: , ,,,, Specimen Specimen of unknown material (specimen) Performing Organization Address City/State/Zipcode one Number [facility] CLIA# [id number] [place], [place] [address] [facility], [facility] [address] documented in this encounter Visit Diagnoses Diagnosis Lump or mass in breast - Primary documented in this encounter"
--- OUTSIDE RECORDS SUMMARY | 2019-10-21 18:45 | XMS REPORT | Encounter Summary ---
Author Author [facility] Organization [facility] Address Unknown Phone Unavailable Care Team Providers Care Metallurgical Lab Technician Name Role Phone PCP Unavailable Reason for Visit * Reason Comments Medication Refill Encounter Details Care Team Description Date Type Department Maurice Durbin MD [address] [place] [address] 07/22/2008 Refill [facility] Primar y Care [place] [address] [place] [address] Social History Date Tobacco Use [...]
--- OUTSIDE RECORDS SUMMARY | 2019-10-21 18:45 | XMS REPORT | Encounter Summary ---
Author Author [facility] Organization [facility] Address Unknown Phone Unavailable Care Team Providers Care Integrity Manager Name Role Phone PCP Unavailable Reason for Visit * Reason Comments Referral Dr. Cabral Encounter Details Care Team Description Date Type Department Edin Melo MD [address] [place] [address] Referral (Dr. Cabral) 08/05/[address] [facility] Primar y Care [place] [address] [place] [address] Social History Date Tobacco Use [...] * Telephone Encounter - Patt Malik - 08/05/2008 9:01 AM CREDIT RISK MODELER I called Pippa at Dr. Cabral's office and she gave me an appointment for Ayden for 08/06/08 at 3:30 pm. I called Ayden and let her know her appointment. IT RISK MODELER * Telephone Encounter - Patt Malik - 08/05/2008 8:59 AM CREDIT RISK MODELER Message copied by PATT MALIK on SunAug 05, 2008 8:59 AM ------ Message from: EDIN MELO Created: SunAug 04, 2008 8:52 PM Refer surgey for evaluation IT RISK MODELER documented in this encounter Plan of Treatment Not on filedocumented as of this encounter Visit Diagnoses Not on filedocumented in this encounter
--- OUTSIDE RECORDS SUMMARY | 2019-10-21 18:45 | XMS REPORT | Encounter Summary ---
Author Author [facility] Organization [facility] Address Unknown Phone Unavailable Care Team Providers Care Residential Energy Auditor Name Role Phone PCP Unavailable Reason for Visit * Reason Comments Leg Pain both legs go to sleep and t he left leg is painful Back Pain lower back pain Encounter Details Care Team Description Date Type Department Maurice Durbin MD [address] [place] [address] Unspecified Hereditary and Idiopathic Pe ripheral Neuropathy; Chronic Airway Obstruction, not Elsewhere Classified 08/06/2008 Office Visit [facility] Primar y Care [place] [address] [place] [address] Social History Date Tobacco Use [...] Signs Reading Time Taken Comments Vital Sign 118/66 08/06/2008 4:02 PM TECHNICAL SUPPORT ASSISTANT Blood Pressure 96 08/06/2008 4:02 PM TECHNICAL SUPPORT ASSISTANT Pulse 37.1 C (98.8 F) 08/06/2008 4:02 PM TECHNICAL SUPPORT ASSISTANT Temperature - - Respiratory Rate - - Oxygen Saturation - - Inhaled Oxygen Concentration - - Weight - - Height - - Body Mass Index documented in this encounter Progress Notes * Maurice Durbin MD - 08/11/2008 5:23 PM CDT Ayden Odom is a 38 y.o. female Chief Complaint Patient presents with Leg Pain both legs go to sleep and the left leg is painful Back Pain lower back pain this has worsened over the last few days with multiple er visits ROS neg except for the above mentioned I have reviewed the patient's past medical, surgical and family history in [facility] and updated the computerized patient record. OBJECTIVE: Physical Exam: BP 118/66 | Pulse 96 | Temp(Src) 98.8 F (37.1 C) (Tympanic) | LMP Hysterecto my General appearance: alert, in no distress Back: symmetric, no curvature. ROM normal. No CVA tenderness. Lungs: clear to auscultation bilaterally, normal respiratory effort Heart: normal rate, regular rhythm, normal S1, S2, no murmurs, rubs, clicks or g allops Abdomen: Soft, non-tender. Bowel sounds normal. No masses, no organomegaly. ASSESSMENT: Encounter Diagnoses Name Primary? Unspecified Hereditary and Idiopathic Peripheral Neuropathy Chronic Airway Obstruction, not Elsewhere Classified PLAN: Orders Placed This Encounter Oxycodone sr 20 mg 12 hr tab stop methadone documented in this encounter Plan of Treatment Not on filedocumented as of this encounter Visit Diagnoses Diagnosis Unspecified hereditary and idiopathic p eripheral neuropathy Chronic airway obstruction, not elsewhe re classified documented in this encounter"
--- OUTSIDE RECORDS SUMMARY | 2019-10-21 18:45 | XMS REPORT | Encounter Summary ---
Author Author [facility] Organization [facility] Address Unknown Phone Unavailable Care Team Providers Care Tank Calibrator Name Role Phone PCP Unavailable Reason for Visit * Reason Comments Medication Refill Encounter Details Care Team Description Date Type Department Maurice Durbin MD [address] [place] [address] 07/28/2008 Refill [facility] Primar y Care [place] [address] [place] [address] Social History Date Tobacco Use [...]
--- OUTSIDE RECORDS SUMMARY | 2019-10-21 18:45 | XMS REPORT | Encounter Summary ---
Author Author [facility] Organization [facility] Address Unknown Phone Unavailable Care Team Providers Care Electrician Apprentice Powerhouse Name Role Phone PCP Unavailable Reason for Visit * Reason Comments Other burning sinsation in arm an d face. Heartburn Encounter Details Care Team Description Date Type Department Teresa Stewart Other (burning sinsation in arm and face .); Heartburn 07/31/2008 Telephone [facility] Primar y Care [place] [address] [place] [address] Social History Date Tobacco Use [...] * Telephone Encounter - Teresa Stewart - 07/31/2008 5:01 PM FOUR SLIDE MACHINE SETTER Felicity called and left a voice message stating that patient was having burnin g sensation in her right arm and face, with severe heartburn. I have called back twice and left a message to call our office if they need to. 07-31-08 TMS I was able to reach Ayden on her cell phone and I have made her an apt for Sunday. SLIDE MACHINE SETTER documented in this encounter Plan of Treatment Not on filedocumented as of this encounter Visit Diagnoses Not on filedocumented in this encounter
--- OUTSIDE RECORDS SUMMARY | 2019-10-21 18:45 | XMS REPORT | Encounter Summary ---
Author Author [facility] Organization [facility] Address Unknown Phone Unavailable Care Team Providers Care Scale Technician Name Role Phone PCP Unavailable Reason for Visit * Reason Comments Back Pain Encounter Details Care Team Description Date Type Department Teresa Stewart Back Pain 07/08/2008 Telephone [facility] Primar y Care [place] [address] [place] [phone] Social History Date Tobacco Use Types Packs/Day [...] * Telephone Encounter - Teresa Stewart - 07/08/2008 2:52 PM SPRING CLIPPER Called for severe back pain, explains that the lidociane cream is not working fo r the pain. Dr. Durbin said to keep using the cream he has nothing to offer at this time. 07-08-08 TMS NG CLIPPER documented in this encounter Plan of Treatment Not on filedocumented as of this encounter Visit Diagnoses Not on filedocumented in this encounter
--- OUTSIDE RECORDS SUMMARY | 2019-10-21 18:45 | XMS REPORT | Encounter Summary ---
Author Author [facility] Organization [facility] Address Unknown Phone Unavailable Care Team Providers Care Wind Operations Supervisor Name Role Phone PCP Unavailable Encounter Details Care Team Description Date Type Department Maurice Durbin MD [address] [place] [address] 08/04/2008 [facility] F ort Encounter [place] [address] [address] Social History Date Tobacco Use [...] Before meals, at bedtime, and as needed 08/03/2008 06/07/2009 ondansetron (ZOFRAN ODT) Take 1 [...] mouth daily XR) 20 mg Oral early [id number]: ADHD morning. For adhd 08/03/2008 08/06/2008 methadone (DOLOPHINE) 10 Take 1 Tab by 90 Tab 0 mg Oral Tab mouth 3 times daily. 07/31/2008 08/10/2008 famotidine (PEPCID) 20 mg Take [...] Diag nosis MAMMO BREAST US RT Routine 08/04/2008 Lump in Yolanda ast COMPLETE 2:03 PM CHUCK WAGON COOK documented in this encounter Results * MAMMO BREAST US RT (08/04/2008 2:03 PM CHUCK WAGON COOK) Specimen Impressions Performed At : Negative right breast ultrasound. Ple ase see above discussion and recommendations. Narrative Performed At RIGHT BREAST ULTRASOUND: Ultrasound was used to evaluate an area of palpable abnormality in the right breast. Ultrasound shows no cys tic or solid mass to account for physical findings. Would recommend fu rther management based on physical findings as ultrasound cannot exclude s olid mass. Procedure Note Macho Barrios MD - 08/04/2008 4:15 PM CHUCK WAGON COOK RIGHT BREAST ULTRASOUND: Ultrasound was used to evaluate an area of palpable abnormality in the right breast. Ultrasound shows no cystic or solid mass to account for physical findings. Would recommend further management based on physical findings as ultrasound cannot exclude solid mass. IMPRESSION: Negative right breast ultrasound. Please see above discussion and recommendations. documented in this encounter Visit Diagnoses Diagnosis Lump in breast Lump or mass in breast documented in this encounter
--- OUTSIDE RECORDS SUMMARY | 2019-10-21 18:45 | XMS REPORT | Encounter Summary ---
Author Author [facility] Organization [facility] Address Unknown Phone Unavailable Care Team Providers Care Tow Picker Name Role Phone PCP Unavailable Reason for Visit * Consult, Test & Treat (Routine) Referred By Contact Referred To Contact Status Reason Specialty Diagnoses / Procedures Maurice Durbin MD [address] [place] [phone] [facility] [address] [place] [phone] Closed Radiology Diagnoses diagnostic mammo gram dx lump or mass Dr. Ramakrishna martin MAMMOGRAPHY DIAGNOSTIC Encounter Details Care Team Description Date Type Department Maurice Durbin MD [address] [place] [phone] 08/04/2008 [facility] F ort Encounter [facility] [address] [place] [phone] Social History Date Tobacco Use Types [...] ACCU-CHEK ACTIVE CARE by See Admin 0 [facility] Instructions route. Before meals, at bedtime, [...] mouth daily XR) 20 mg Oral early [id number]: ADHD morning. For adhd 08/03/2008 08/06/2008 methadone [...] Form - Aok Scanning, Amb Physician - 08/05/2008 11:59 AM EXPORT ADMINISTRATOR documented in this encounter Plan of Treatment Not on filedocumented as of this encounter Procedures Comments Procedure Name Priority Date/Time Associated Diag nosis MAMMO DIAGNOSTIC Routine 08/04/2008 Lump or Mass in Breast BILATERAL W OR WO CAD 1:35 PM EXPORT ADMINISTRATOR documented in this encounter Results * MAMMO DIGITAL DIAG BILAT (08/04/2008 1:35 PM EXPORT ADMINISTRATOR) Specimen Impressions Performed At : Diagnostic right mammogram fails to orsi w a mammographic abnormality in the area of palpable concern in the rig ht upper and outer breast. Ultrasound is recommended for additiona l evaluation. BI-RADS Category 0: Incomplete - Need Additional Imaging evaluation TECH: Tere horne [[id number]] Narrative Performed At DIAGNOSTIC MAMMOGRAM: CC and oblique views of the right and l eft breast were obtained. There are no prior examinations for compariso n. Examination is obtained with digital technique and reviewed with CAD . Additional views of the right breast were obtained for report of a pa lpable abnormality in the right upper and outer breast which was marked with a triangular radio-opaque marker. There are involutional changes noted in both breasts. No spiculated mass or malignant appearing area of microcal cification is identified in either breast. Small lymph nodes are noted i n the axilla on the right. No mammographic abnormality is identified to account for the palpable findings in the right upper and outer b reast. Procedure Note Macho Barrios MD - 08/04/2008 4:15 PM EXPORT ADMINISTRATOR DIAGNOSTIC MAMMOGRAM: CC and oblique views of the right and left breast were obtained. There are no prior examinations for comparison. Examination is obtained with digital technique and reviewed with CAD. Additional views of the right breast were obtained for report of a palpable abnormality in the right upper and outer breast which was marked with a triangular radio-opaque marker. There are involutional changes noted in both breasts. No spiculated mass or malignant appearing area of microcalcification is identified in either breast. Small lymph nodes are noted in the axilla on the right. No mammographic abnormality is identified to account for the palpable findings in the right upper and outer breast. IMPRESSION: Diagnostic right mammogram fails to show a mammographic abnormality in the area of palpable concern in the right upper and outer breast. Ultrasound is recommended for additional evaluation. BI-RADS Category 0: Incomplete - Need Additional Imaging evaluation TECH: Tere horne [[id number]] documented in this encounter Visit Diagnoses Diagnosis Lump or mass in breast documented in this encounter
--- OUTSIDE RECORDS SUMMARY | 2019-10-21 18:45 | XMS REPORT | Encounter Summary ---
Author Author [facility] Organization [facility] Address Unknown Phone Unavailable Care Team Providers Care Money Order Clerk Name Role Phone PCP Unavailable Reason for Visit * Reason Comments Breast Problem right breast pt says she ahuja s a nodule Back Pain pt says she is having back and leg pain Vomiting Diarrhea Encounter Details Care Team Description Date Type Department Maurice Durbin MD [address] [place] [address] ADHD; Lump or Mass in Breast; COPD 08/03/2008 Office Visit [facility] Primar y Care [place] [address] [place] [address] Social History Date Tobacco [...] Signs Reading Time Taken Comments Vital Sign 92/62 08/03/2008 11:21 AM [employer] Blood Pressure 80 08/03/2008 11:21 AM [employer] Pulse 36.7 C (98.1 F) 08/03/2008 11:21 AM [employer] Temperature - - Respiratory Rate - - Oxygen Saturation - - Inhaled Oxygen Concentration - - Weight - - Height - - Body Mass Index documented in this encounter Progress Notes * Maurice Durbin MD - 08/04/2008 9:05 PM [employer] Ayden Odom is a 38 y.o. female Chief Complaint Patient presents with Breast Problem right breast pt says she has a nodule Back Pain pt says she is having back and leg pain Vomiting Diarrhea the patient had titrated off of the methadone still hacving a lot of pain also w ith .vom and diarrhea for the last 3 days able to keep down some water ROS neg except for the above mentioned I have reviewed the patient's past medical, surgical and family history in [facility] and updated the computerized patient record. OBJECTIVE: Physical Exam: BP 92/62 | Pulse 80 | Temp(Src) 98.1 F (36.7 C) (Tympanic) | LMP Hysterectom y General [...] normal tone ASSESSMENT: Encounter Diagnoses Name Primary? ADHD Lump or Mass in Breast COPD PLAN: Orders Placed This Encounter Mammo digital screen bilat Mammo bilat diagnostic Ondansetron 4 mg tab, rapid dissolve Promethazine 12.5 mg tab Amphetamine-dextroamphetamine sr 20 mg 24 hr cap Methadone 10 mg tab T ELECTRICIAN documented in this encounter Plan of Treatment Not on filedocumented as of this encounter Visit Diagnoses Diagnosis ADHD Attention deficit disorder with hyperac tivity Lump or mass in breast COPD Chronic airway obstruction, not elsewhe re classified documented in this encounter"
--- OUTSIDE RECORDS SUMMARY | 2019-10-21 18:45 | XMS REPORT | Encounter Summary ---
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 Discontinued, Stat 07/31/2008 2:12 PM MOBILE MARKETING SPECIALIST 30 mg ketorolac (TORADOL) injection 30 mg Given 30 mg, IV, ONE TIME ONLY, 1 dose, Sun07/31/08 at 1415, Stat 07/31/2008 2:11 PM MOBILE MARKETING SPECIALIST 4 mg ondansetron (ZOFRAN) 4 mg/2 mL injection Given 4 mg 4 mg, IV, ONE TIME ONLY, 1 dose, Sun07/31/08 at 1415, Stat 07/31/2008 2:12 PM MOBILE MARKETING SPECIALIST 3 mL sodium chloride 0.9 % flush injection 3 Given mL 3 mL, IV, DAILY, First dose on Sun07/31/08 at 1315, Until Discontinued, Routine documented in this encounter
--- OUTSIDE RECORDS SUMMARY | 2019-10-21 18:45 | XMS REPORT | Encounter Summary ---
Author Author [facility] Organization [facility] Address Unknown Phone Unavailable Care Team Providers Care Spanish Teacher Name Role Phone PCP Unavailable Reason for Visit * Reason Comments Medication Review Encounter Details Care Team Description Date Type Department Teresa Stewart Medication Review 07/09/2008 Telephone [facility] Prim[facility] Care [address] [place] [id number] Social History Date Tobacco Use Types Packs/Day [...] * Telephone Encounter - Teresa Stewart - 07/09/2008 4:16 PM FIELD RESEARCH ASSISTANT Patient wants to know if she can use the lidociane lotion with the lidociane pat ches. Dr. Durbin said yes you can. 07-09-08 TMS D RESEARCH ASSISTANT documented in this encounter Plan of Treatment Not on filedocumented as of this encounter Visit Diagnoses Not on filedocumented in this encounter
--- OUTSIDE RECORDS SUMMARY | 2019-10-21 18:45 | XMS REPORT | Encounter Summary ---
Author Author [facility] Organization [facility] Address Unknown Phone Unavailable Care Team Providers Care Fountain Pen Turner Name Role Phone PCP Unavailable Reason for Visit * Reason Comments Follow Up 1 mo follow up, she says eugenia sexton is having chest pain, thinks it might be anxiety attacks Fatigue weakness in legs and back, she states that she in bed more than out of bed Results would like to know sleep st udy results Encounter Details Care Team Description Date Type Department Maurice Durbin MD [address] [place] [address] Back Pain; RLS (Restless Legs Syndrome) 07/20/2008 Office Visit [facility] [address] [place] [address] Social History Date Tobacco Use [...] Signs Reading Time Taken Comments Vital Sign 110/78 07/20/2008 2:18 PM WEB MASTER Blood Pressure 90 07/20/2008 2:18 PM WEB MASTER Pulse 37.2 C (98.9 F) 07/20/2008 2:18 PM WEB MASTER Temperature - - Respiratory Rate - - Oxygen Saturation - - Inhaled Oxygen Concentration - - Weight - - Height - - Body Mass Index documented in this encounter Progress Notes * Maurice Durbin MD - 07/20/2008 5:23 PM WEB MASTER Ayden Odom is a 38 y.o. female Chief Complaint Patient presents with Follow Up 1 mo follow up, she says she is having chest pain, thinks it might be anxiety attacks Fatigue weakness in legs and back, she states that she in bed more than out of bed Results would like to know sleep study results review the polysomnogram with the patient no sign of any sleep apnea sis desat during the night with evidence of snoring else negative more problems with anxie ty and chest pain ROS neg except for the above mentioned I have reviewed the patient's past medical, surgical and family history in [facility] and updated the computerized patient record. OBJECTIVE: Physical Exam: BP 110/78 | Pulse 90 | Temp(Src) 98.9 F (37.2 C) (Temporal) | LMP Hysterecto my General appearance: alert, in no distress Lungs: clear to auscultation bilaterally, normal respiratory effort Heart: normal rate, regular rhythm, normal S1, S2, no murmurs, rubs, clicks or g allops Abdomen: Soft, non-tender. Bowel sounds normal. No masses, no organomegaly. ASSESSMENT: Encounter Diagnoses Name Primary? Back Pain RLS (Restless Legs Syndrome) PLAN: Orders Placed This Encounter Lorazepam 1 mg tab Pramipexole 0.25 mg tab MASTER documented in this encounter Plan of Treatment Not on filedocumented as of this encounter Visit Diagnoses Diagnosis Back pain Backache, unspecified RLS (restless legs syndrome) Restless legs syndrome (RLS) documented in this encounter"
--- OUTSIDE RECORDS SUMMARY | 2019-10-21 18:45 | XMS REPORT | Encounter Summary ---
Author Author [facility] Organization [facility] Address Unknown Phone Unavailable Care Team Providers Care Human Capital Consultant Name Role Phone PCP Unavailable Reason for Visit * Reason Comments Mass vaginal area Pelvic Pain bilateral Encounter Details Care Team Description Date Type Department Molina Valenzuela DO [address] [place] [address] Lump or Mass in Breast (Primary Dx); Cystocele, Midline; Vulvitis 08/04/2008 Office Visit [facility] [place] [address] [place] [address] Social History Date Tobacco Use [...] Reading Time Taken Comments Vital Sign 110/62 08/04/2008 2:25 PM PERFORMANCE TEST CONSULTANT Blood Pressure - - Pulse 36.9 C (98.5 F) 08/04/2008 2:25 PM PERFORMANCE TEST CONSULTANT Temperature - - Respiratory Rate - - Oxygen Saturation - - Inhaled Oxygen Concentration - - Weight - - Height - - Body Mass Index documented in this encounter Progress Notes * Molina Valenzuela DO - 08/04/2008 5:55 PM PERFORMANCE TEST CONSULTANT HISTORY OF PRESENT ILLNESS Ayden Odom, a 38 y.o. female. HPI Ms. Odom is here for irritation around her vaginal area. Also, she complains o f leaking of urine when she laughs, coughs, sneezes. REVIEW OF SYSTEMS ROS No review of systems was done today. PHYSICAL EXAM BP 110/62 | Temp 98.5 F (36.9 C) | LMP Hysterectomy Physical Exam Pelvic: Vagina normal without discharge, no adnexal masses or tenderness, rectov aginal septum normal, uterus surgically absent, erythematous area in the vulvar area and the folds. Patient has a Grade 2 Cystocele. ASSESSMENT and PLAN: Encounter Diagnoses Code Name Primary? Qualifier 611.72 Lump or Mass in Breast Yes Plan: MAMMO DIGITAL DIAG BILAT Assessment: Vulvitis 2. Grade 2 Cystocele Plan: Monistat over the counter, apply nightly for one week. Pessary with Inco ntinence Bulb #2 placed. Return to office with any other problems or questions. ORMANCE TEST CONSULTANT documented in this encounter Plan of Treatment Not on filedocumented as of this encounter Results * MAMMO DIGITAL DIAG BILAT (08/04/2008 1:35 PM PERFORMANCE TEST CONSULTANT) Specimen Impressions Performed At : Diagnostic right mammogram fails to rosi w a mammographic abnormality in the area of palpable concern in the rig ht upper and outer breast. Ultrasound is recommended for additiona l evaluation. BI-RADS Category 0: Incomplete - Need Additional Imaging evaluation TECH: Tere horne [[id number]] Narrative Performed At DIAGNOSTIC MAMMOGRAM: CC and [...] Macho Barrios MD - 08/04/2008 4:15 PM PERFORMANCE TEST CONSULTANT DIAGNOSTIC MAMMOGRAM: CC and oblique views of [...] Need Additional Imaging evaluation TECH: Tere horne [[id number]] documented in this encounter Visit Diagnoses Diagnosis Lump or mass in breast - Primary Cystocele, midline Vulvitis Vaginitis and vulvovaginitis, unspecifi ed documented in this encounter"
--- OUTSIDE RECORDS SUMMARY | 2019-10-21 18:45 | XMS REPORT | Encounter Summary ---
Author Author [facility] Organization [facility] Address Unknown Phone Unavailable Care Team Providers Care Radiochemical Technician Name Role Phone PCP Unavailable Reason for Visit * Reason Comments Sore on right breat, hot to touc h Encounter Details Care Team Description Date Type Department Kashif Land PA [address] [place] [address] Abscess (Primary Dx) 07/23/2008 [facility] [address] [place] [address] Social History Date Tobacco Use [...] Vital Sign - - Blood Pressure 99 07/23/2008 9:19 PM WOOD BOATBUILDER APPRENTICE Pulse 36.9 C (98.4 F) 07/23/2008 9:19 PM WOOD BOATBUILDER APPRENTICE Temperature - - Respiratory Rate 97% 07/23/2008 9:19 PM WOOD BOATBUILDER APPRENTICE Oxygen Saturation - - Inhaled Oxygen Concentration - - Weight - - Height - - Body Mass Index documented in this encounter Patient Instructions * Patient Instructions* Kashif Land PA - 07/27/2008 8:35 PM WOOD BOATBUILDER APPRENTICE Moist heat TID, Tylenol or Motrin for pain or fever, as needed. C ST documented in this encounter Progress Notes * Kashif Land PA - 07/27/2008 8:35 PM WOOD BOATBUILDER APPRENTICE HISTORY OF PRESENT ILLNESS Ayden Odom, a 38 y.o. female. Abscess The history is provided by the patient. This is a new problem. The current episo de started less than one week ago. The onset was gradual. The problem occurs con tinuously. The problem has been gradually worsening. The abscess is present on t he torso (Under right breast). The problem is moderate. The abscess is character ized by redness, painfulness and swelling. It is unknown what she was exposed to . The abscess first occurred at home. Pertinent negatives include no fever, no d iarrhea and no vomiting. There were no sick contacts. She has received no recent medical care. REVIEW OF SYSTEMS Review of Systems Constitutional: Negative for fever and chills. Respiratory: Negative for shortness of breath and wheezing. Gastrointestinal: Negative for vomiting and diarrhea. Skin: Negative for rash. PHYSICAL EXAM Pulse 99 | Temp 98.4 F (36.9 C) | SpO2 97% | LMP Hysterectomy [...] sounds normal. Musculoskeletal: Normal range of motion. Neurological: She is alert and oriented. Skin: Skin is warm and dry. No rash noted. Approx 1.5 cm papule under lateral aspect of right breast. Moderate erythem a, small central punctum, no drainage, crusting or exudate. Mild edema. No ecchy mosis. No axillary nodes. ASSESSMENT and PLAN: Encounter Diagnoses Code Name Primary? Qualifier 682.9J Abscess Yes Plan: AMOXICILLIN-POT CLAVULANATE 875 MG-[address] documented in this encounter Plan of Treatment Not on filedocumented as of this encounter Visit Diagnoses Diagnosis Abscess - Primary Cellulitis and abscess of unspecified s ite documented in this encounter"
--- OUTSIDE RECORDS SUMMARY | 2019-10-21 18:46 | XMS REPORT | Encounter Summary ---
Author Author [facility] Organization [facility] Address Unknown Phone Unavailable Care Team Providers Care Member Services Representative Name Role Phone PCP Unavailable Reason for Visit * Reason Comments Medication Refill Encounter Details Care Team Description Date Type Department Maurice Durbin MD [address] [place] [address] 06/30/2008 Refill [facility] Primar y Care [place] [address] [place] [address] Social History Date Tobacco Use Types Packs/Day Years Used Current Every Day Smoker Cigarettes 0.5 15 Comments: STARTED SMOKING AGE 13 Drinks/Week oz/Week Comments Alcohol Use No Sex [...]
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
--- OUTSIDE RECORDS SUMMARY | 2019-10-21 18:46 | XMS REPORT | Encounter Summary ---
Author Author [facility] Organization [facility] Address Unknown Phone Unavailable Care Team Providers Care Eligibility Manager Name Role Phone PCP Unavailable Reason for Visit * Reason Comments [facility] Hospital Check needs a rx for glucose chec k 4 times a day Migraine Back Pain lower pain Hand Pain bilaterl, cant livestock agent things Encounter Details Care Team Description Date Type Department Maurice Durbin MD [address] [place] [address] Unspecified Migraine without Mention of Intractable Migraine; Pulmonary Embolism; DM w/o Complication Type II 06/17/2008 [facility] [address] [place] [address] Social History Date Tobacco Use [...] Signs Reading Time Taken Comments Vital Sign 110/72 06/17/2008 11:04 AM WHEEL TRUER Blood Pressure - - Pulse 36.3 C (97.3 F) 06/17/2008 11:04 AM WHEEL TRUER Temperature - - Respiratory Rate - - Oxygen Saturation - - Inhaled Oxygen Concentration - - Weight - - Height - - Body Mass Index documented in this encounter Progress Notes * Maurice Durbin MD - 06/22/2008 4:58 PM WHEEL TRUER Ayden Odom is a 38 y.o. female Chief Complaint Patient presents with [facility] Check needs a rx for glucose check 4 times a day Migraine Back Pain lower pain Hand Pain bilaterl, cant livestock agent things Explained to check sugars bid not qid will have the patient try lidocaine patche s and see how she does ROS neg except for the above mentioned I have reviewed the patient's past medical, surgical and family history in [facility] and updated the computerized patient record. OBJECTIVE: Physical Exam: BP 110/72 | Temp(Src) 97.3 F (36.3 C) (Tympanic) | LMP Hysterectomy General appearance: alert, in no distress Back: symmetric, no curvature. ROM normal. No CVA tenderness. Lungs: clear to auscultation bilaterally, normal respiratory effort Heart: normal rate, regular rhythm, normal S1, S2, no murmurs, rubs, clicks or g allops Abdomen: Soft, non-tender. Bowel sounds normal. No masses, no organomegaly. ASSESSMENT: Encounter Diagnoses Name Primary? Unspecified Migraine without Mention of Intractable Migraine Pulmonary Embolism DM w/o Complication Type II PLAN: Orders Placed This Encounter Promethazine 25 mg injection Ketorolac 60 mg/2 ml injection Lidocaine 5 % (700 mg/patch) adhesive patch Topiramate 100 mg tab Promethazine 25 mg/ml injection Ketorolac tromethamine 60 mg/2 ml im L TRUER documented in this encounter Plan of Treatment Not on filedocumented as of this encounter Visit Diagnoses Diagnosis Migraine, unspecified, without mention of intractable migraine without mention of status migrainosus Pulmonary embolism Other pulmonary embolism and infarction Type II or unspecified type diabetes me llitus without mention of complication, not stated as uncontrolled documented in this encounter"
--- OUTSIDE RECORDS SUMMARY | 2019-10-21 18:46 | XMS REPORT | Encounter Summary ---
Author Author [facility] Organization [facility] Address Unknown Phone Unavailable Care Team Providers Care Competitive Shopper Name Role Phone PCP Unavailable Reason for Visit * Reason Comments Medication Refill Encounter Details Care Team Description Date Type Department Maurice Durbin MD [address] [place] [address] ADHD 06/25/2008 Refill [facility] [place] [address] [place] [address] Social History Date Tobacco Use [...]
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
--- OUTSIDE RECORDS SUMMARY | 2019-10-21 18:46 | XMS REPORT | Encounter Summary ---
Author Author [facility] Organization [facility] Address Unknown Phone Unavailable Care Team Providers Care Devulcanizer Head Name Role Phone PCP Unavailable Reason for Visit * Reason Comments Vaginal Discharge SINCE MAY 11; ODOR TO DISCH ARGE; VAGINAL BUMPS AND HURT Painful Sex STARTED SAME TIME DISCHA RGE AND BUMPS APPEARED; DR MELO TX FOR YEAST, ETC...NOTING SEEMS TO BE GETTING RID OF PROBLEM Encounter Details Care Team Description Date Type Department Molina Valenzuela, DO [address] [place] [address] Vulvar Lesion; Candidal Vaginitis 06/24/[address] [facility] [address] [place] [address] Social History Date Tobacco Use [...] Reading Time Taken Comments Vital Sign 92/60 06/24/2008 1:11 PM SIEBEL CONSULTANT Blood Pressure - - Pulse 37.4 C (99.3 F) 06/24/2008 1:11 PM SIEBEL CONSULTANT Temperature - - Respiratory Rate - - Oxygen Saturation - - Inhaled Oxygen Concentration 117 kg (258 lb) 06/24/2008 1:11 PM SIEBEL CONSULTANT Weight - - Height 45.7 05/30/2008 10:50 PM SIEBEL CONSULTANT Body Mass Index documented in this encounter Progress Notes * Edith Jarrett - 06/24/2008 2:54 PM SIEBEL CONSULTANT Addended by: EDITH JARRETT on: 06/24/2008 Modules accepted: Orders EL CONSULTANT * Molina Valenzuela DO - 06/24/2008 2:10 PM SIEBEL CONSULTANT HISTORY OF PRESENT ILLNESS Jerald Velazquez, a 38 y.o. female. HPI Patient here for several complaints. She admits to having vaginal discharge and odor. Next, she states that she has a very painful bump in her vaginal area. Lastly, she has painful intercourse. REVIEW OF SYSTEMS ROS No review of systems was done today. PHYSICAL EXAM BP 92/60 | Temp(Src) 99.3 F (37.4 C) (Tympanic) | Wt 258 lb (117.028 kg) | L MP Hysterectomy Physical Exam Pelvic: Vagina normal without discharge, no adnexal masses or tenderness, rectov aginal septum normal, uterus surgically absent, externally, approximately a 1.5 cm lesion on left labia, very tender, erythematous with vesicles on it. Vaginal ly, she has vesicular lesions on vaginal cuff, very tender to palpation. ASSESSMENT and PLAN: Encounter Diagnoses Code Name Primary? Qualifier 624.8AA Vulvar Lesion Plan: TRIMETHOPRIM-SULFAMETHOXAZOLE 160 MG-800 MG TAB, VALACYCLOVIR 1 G TAB 112.1AZ Candidal Vaginitis Plan: FLUCONAZOLE 200 MG TAB Assessment: Vaginal and Vulvar lesions (possible herpetic) 2. Candidal vaginit is Plan: Bactrim DS one tablet orally every 12 hours for 10 days. Valtrex 1 gm or ally every 12 hours for 5 days. Diflucan 200 mg one tablet orally every other d ay (#4, 1 refill). Tub soaks 3-4 times per day. General Culture and Viral Cult ure of lesion is pending. EL CONSULTANT documented in this encounter Plan of Treatment Order Schedule Name Type Priority Associated Diag noses Ordered: 06/24/2008 CERV/VAG CYTOPATH, Lab Routine Vulvar Lesi on SUREPATH W/RFLX HPV documented as of this encounter Procedures Comments Procedure Name Priority Date/Time Associated Diag nosis PATHOLOGY Routine 06/25/2008 2:38 PM SIEBEL CONSULTANT GC/CHLAMYDIA, GENITAL Routine 06/24/2008 Vulvar L esion 12:01 AM SIEBEL CONSULTANT WOUND CULTURE WITH GRAM Routine 06/24/2008 Vulvar Lesion STAIN 12:00 AM SIEBEL CONSULTANT documented in this encounter Results * PATHOLOGY (06/25/2008 2:38 PM SIEBEL CONSULTANT) Pathologist [facility] CERVICAL OR Name: JERALD VELAZQUEZ SIX MILE VAGINAL : PATHOLOGY CYTOPATH PAP 74 Location: [facility] OB CONSUL [place] OSMAN SMEAR Sex: F Unit#: [id number] Room/Bed: Att: Molina Alaniz D.O. RECD: 06/25/08 PROCEDURE DATE: - [facility] DR: Molina Valenzuela D.O. [facility] DR: PROCEDURES: . LOCATION: [facility] Specimen Type: Liquid based cytology (SurePath). Specimen Source: Vaginal. Pertinent History: Total abdominal hysterectomy, bilateral salpingo-oophorectomy. Onset of LMP: Not applicable. Date of Last Pap: 01/17/06. Results of Previous Pap: Normal. Risk Factors for Cervical/Endocervical Cancer: No. INTERPRETATION/RESULTS NEGATIVE FOR INTRAEPITHELIAL LESION OR MALIGNANCY. Hormonal Evaluation: Slight estrogen effect is present. Specimen Adequacy: Satisfactory for evaluation. Signed (electronic signature) REJI Enriquez [place] ASCP 06/26/08 1034 END OF REPORT Comment: , ,,,, Specimen Performing Organization Address City/State/Zipcode Ph one Number [facility] CLIA# [id number] CLEMENTE RIOJAS [address] [facility], [place] [address] [place] [address] * GC AND CHLAMYDIA PROBE (06/24/2008 12:01 AM SIEBEL CONSULTANT) Pathologist [facility] CHLAMYDIA DNA NOT DETECTED NOT DETECTED [facility] AMPLIFICATION [place] [facility] GC DNA NOT DETECTED NOT DETECTED [facility] AMPLIFICATION Comment: [facility] Test performed at [facility] [place] [address] [place] [address] [facility], ,,,, Specimen Specimen from genital system (specimen) - Endocervical Performing Organization Address [facility] CLIA# [id number] Milly RIOJAS [address] [facility] [address] [place] [address] * HSV CULTURE (06/24/2008 12:01 AM SIEBEL CONSULTANT) SOURCE VAGINALComment: REF RANGE: SEE COMMENT [facility] HSV CULTURE SEE NOTE SEE COMMENT [facility] Comment: [facility] REF RANGE: [facility] NONE ISOLATED Test performed at [facility] [place] [address] [place] [address] [facility], ,,,, Specimen Specimen from genital system (specimen) - Vaginal Performing Organization Address [facility] [place] CLIA# [id number] Milly RIOJAS [address] * WOUND CULTURE WITH GRAM STAIN (06/24/2008 12:00 AM SIEBEL CONSULTANT) WOUND CULTURE RARE COAGULASE NEGATIVE [facility] STAPHYLOCOCCI PRESENT [facility] NO PATHOGENS ISOLATED AT [facility] PRESENT 06-26-08 RARE DIPTHEROIDS ALSO ISOLATED - PROBABLE SKIN CONTAMINANT - NO FURTHER STUDIES INDICATED NO PATHOGENS ISOLATEDComment: [facility] ACCT#[id number], ,,,, Specimen Lesion sample (specimen) - Labia Performing Organization Address [facility] CLIA# [id number] Milly RIOJAS [address] documented in this encounter Visit Diagnoses Diagnosis Vulvar lesion Other specified noninflammatory disorde r of vulva and perineum Candidal vaginitis Candidiasis of vulva and vagina documented in this encounter"
--- OUTSIDE RECORDS SUMMARY | 2019-10-21 18:46 | XMS REPORT | Encounter Summary ---
Author Author [facility] Organization [facility] Address Unknown Phone Unavailable Care Team Providers Care Finisher Special Stocks Name Role Phone PCP Unavailable Reason for Visit * Reason Comments Medication Refill Encounter Details Care Team Description Date Type Department Maurice Durbin MD [address] [place] [address] 06/22/2008 Refill [facility] Primar y Care [place] [address] [place] [address] Social History Date Tobacco Use [...]
--- OUTSIDE RECORDS SUMMARY | 2019-10-21 18:46 | XMS REPORT | Encounter Summary ---
Author Author [facility] Organization [facility] Address Unknown Phone Unavailable Care Team Providers Care Food Assembler Kitchen Name Role Phone PCP Unavailable Reason for Visit * Auth/Cert Referred By Contact Referred To Contact Status Reason Specialty Diagnoses / Procedures [facility] [address] [place] [address] Sleep Center Encounter Details Care Team Description Date Type Department Maurice Durbin MD [address] [place] [address] 07/08/2008 [facility] er Encounter [place] [address] [place] [address] Social History Date Tobacco Use [...] mouth daily XR) 20 mg Oral early [id number]: ADHD morning. For adhd 07/22/2008 COMBIVENT IN [...] of this encounter Procedure Notes * Maverickk Vesta, Ari Physician - 07/14/2008 10:31 AM TRADE SHOW MANAGER Associated Order(s): POLYSOMNOGRAPHY; POLYSOMNOGRAPHY * Santi Tilley MD - 07/12/2008 8:14 AM TRADE SHOW MANAGER Associated Order(s): POLYSOMNOGRAPHY; POLYSOMNOGRAPHY [facility], [address] [address] POLYSOMNOGRAPHY SLEEP TEST Pt JERALD VELAZQUEZ Date: Age: 38 Sex: F Location: -[facility]# Att: Maurice Buck M.D. Ord: ER: Fam: DATE OF REPORT: 07/08/08 SLEEP STUDY INTERPRETATION: ORDERING PHYSICIAN: Maurice Durbin M.D. The patient completed a sleep study for the purpose of evaluating for obstructi ve sleep apnea. The recording technique included 6-Channel EEG, 2-Channel EOG, Chin EMG, airflo w monitoring, snore microphone, abdominal and chest belts, leg movement monitori ng, pulse oximetry and EKG. SLEEP ARCHITECTURE: Total recording time: 414 minutes. Total sleep time: 408 minutes. Sleep efficiency: 98%. Sleep latency: 3 minutes. REM latency: 135 minutes. SLEEP STAGE DISTRIBUTION: Stage 1: 4% Stage 2: 51% Stage 3: 21% REM Sleep: 24% RESPIRATORY EVENT SUMMARY: There were 2 central apneas, 6 obstructive apneas an d 17 hyponeas. The apnea/hyponea index was 3.7. BODY POSITION SUMMARY: The study was done completely in the supine position. CARDIAC SUMMARY: The average heart rate was 101 while awake, 97 during REM, 97 during non-REM. PERIODIC LIMB MOVEMENT SUMMARY: There were no periodic limb movements present. OXIMETRY SUMMARY: The average oxygen saturation was 95 while awake, 95 during R EM, 94 during non-REM. The lowest oxygen saturation is 82. SNORING SUMMARY: Snoring was noted to be mild to loud. IMPRESSION: 1. Loud snoring was noted. 2. The patient did not meet criteria for the diagnosis of obstructive sleep mental health aides teacher ea. 3. Oxygen desaturation occurred as low as 82%. 4. Low periodic limb movements are present. 5. No significant arrhythmias are present. The patient did have episodes of sin us tachycardia. 6. Obesity. 7. History of excessive day time sleepiness. RECOMMENDATION: 1. The patient would benefit from losing weight. 2. If snoring is a clinical problem, the patient may benefit from a dental appl iance for the treatment of snoring. A dental appliance is also reasonable treatm ent for mild obstructive sleep apnea. Dictated by: Santi Tilley M.D./LUZ ELENA d: 07/10/08/t: 07/12/08 MARCUSJERALD BALDWINN Santi Tilley M.D. [id number] Polysomnography Sleep # E SHOW MANAGER documented in this encounter Plan of Treatment Not on filedocumented as of this encounter Procedures Comments Procedure Name Priority Date/Time Associated Diag nosis POLYSOMNOGRAPHY Routine 07/16/2008 Sleep Apnea 10:16 AM TRADE SHOW MANAGER documented in this encounter Results * POLYSOMNOGRAPHY (07/16/2008 10:16 AM TRADE SHOW MANAGER) Specimen Narrative Performed At This result has an attachment that is n ot available. Procedure Note 07/14/2008 10:31 AM TRADE SHOW MANAGER Transcriptions Santi Tilley MD - 07/12/2008 8:14 AM TRADE SHOW MANAGER [facility]. [address] [place] [address] POLYSOMNOGRAPHY SLEEP TEST Pt JERALD VELAZQUEZN Date: Age: 38 Sex: F Location: [facility]# Att: Maurice Buck M.D. Ord: ER: Fam: DATE OF REPORT: 07/08/08 SLEEP STUDY INTERPRETATION: ORDERING PHYSICIAN: Maurice Durbin M.D. The patient completed a sleep study for the purpose of evaluating for obstructive sleep apnea. The recording technique included 6-Channel EEG, 2-Channel EOG, Chin EMG, airflow monitoring, snore microphone, abdominal and chest belts, leg movement monitoring, pulse oximetry and EKG. SLEEP ARCHITECTURE: Total recording time: 414 minutes. Total sleep time: 408 minutes. Sleep efficiency: 98%. Sleep latency: 3 minutes. REM latency: 135 minutes. SLEEP STAGE DISTRIBUTION: Stage 1: 4% Stage 2: 51% Stage 3: 21% REM Sleep: 24% RESPIRATORY EVENT SUMMARY: There were 2 central apneas, 6 obstructive apneas and 17 hyponeas. The apnea/hyponea index was 3.7. BODY POSITION SUMMARY: The study was done completely in the supine position. CARDIAC SUMMARY: The average heart rate was 101 while awake, 97 during REM, 97 during non-REM. PERIODIC LIMB MOVEMENT SUMMARY: There were no periodic limb movements present. OXIMETRY SUMMARY: The average oxygen saturation was 95 while awake, 95 during REM, 94 during non-REM. The lowest oxygen saturation is 82. SNORING SUMMARY: Snoring was noted to be mild to loud. IMPRESSION: 1. Loud snoring was noted. 2. The patient did not meet criteria for the diagnosis of obstructive sleep apnea. 3. Oxygen desaturation occurred as low as 82%. 4. Low periodic limb movements are present. 5. No significant arrhythmias are present. The patient did have episodes of sinus tachycardia. 6. Obesity. 7. History of excessive day time sleepiness. RECOMMENDATION: 1. The patient would benefit from losing weight. 2. If snoring is a clinical problem, the patient may benefit from a dental appliance for the treatment of snoring. A dental appliance is also reasonable treatment for mild obstructive sleep apnea. Dictated by: Santi Tilley M.D./LUZ ELENA d: 07/10/08/t: 07/12/08 JERALD VELAZQUEZ Blake A. M.D. [id number] Polysomnography Sleep # [id number] documented in this encounter Visit Diagnoses Diagnosis Sleep apnea Unspecified sleep apnea documented in this encounter
--- OUTSIDE RECORDS SUMMARY | 2019-10-21 18:46 | XMS REPORT | Encounter Summary ---
Author Author [facility] Organization [facility] Address Unknown Phone Unavailable Care Team Providers Care Training Personnel Supervisor Name Role Phone PCP Unavailable Reason for Visit * Reason Comments Vaginal Discharge pt states milky discharge, pus pockets near vaginal opening and clitoris soreness, she says she has been douchin g and trying to get rid of odor Encounter Details Care Team Description Date Type Department Maurice Durbin MD [address] [place] [address] Rash and Other Nonspecific Skin Eruption (Primary Dx) 06/23/2008 Office Visit [facility] Primar y Care [place] [address] [place] [address] Social History Date Tobacco Use [...] Reading Time Taken Comments Vital Sign 102/62 06/23/2008 9:10 AM BLACKTOP PAVER OPERATOR Blood Pressure 96 06/23/2008 9:10 AM BLACKTOP PAVER OPERATOR Pulse 36.6 C (97.9 F) 06/23/2008 9:10 AM BLACKTOP PAVER OPERATOR Temperature - - Respiratory Rate - - Oxygen Saturation - - Inhaled Oxygen Concentration - - Weight - - Height - - Body Mass Index documented in this encounter Progress Notes * Maurice Durbin MD - 06/24/2008 1:08 PM BLACKTOP PAVER OPERATOR Ayden Odom is a 38 y.o. female Chief Complaint Patient presents with Vaginal Discharge pt states milky discharge, pus pockets near vaginal opening and clitoris ricci ess, she says she has been douching and trying to get rid of odor has also had a rash on the abdomen states it has been there since the colonosco py ROS neg except for the above mentioned I have reviewed the patient's past medical, surgical and family history in [facility] and updated the computerized patient record. OBJECTIVE: Physical Exam: BP 102/62 | Pulse 96 | Temp(Src) 97.9 F (36.6 C) (Tympanic) | LMP Hysterecto my General appearance: alert, in no distress Lungs: clear to auscultation bilaterally, normal respiratory effort Heart: normal rate, regular rhythm, normal S1, S2, no murmurs, rubs, clicks or g allops Abdomen: Soft, non-tender. Bowel sounds normal. No masses, no organomegaly., ab normal findings: Rash on the abdomen is noted ASSESSMENT: Encounter Diagnosis Name Primary? Rash and Other Nonspecific Skin Eruption Yes PLAN: Orders Placed This Encounter Clotrimazole-betamethasone 1 %-0.05 % lotion Refer to obgyn for the discharge and physical KTOP PAVER OPERATOR documented in this encounter Plan of Treatment Not on filedocumented as of this encounter Visit Diagnoses Diagnosis Rash and other nonspecific skin eruptio n - Primary documented in this encounter"
--- OUTSIDE RECORDS SUMMARY | 2019-10-21 18:46 | XMS REPORT | Encounter Summary ---
Author Author [facility] Organization [facility] Address Unknown Phone Unavailable Care Team Providers Care Motel Maid Name Role Phone PCP Unavailable Reason for Referral * Consult, Test & Treat (Routine) Referred By Contact Referred To Contact Status Reason Specialty Diagnoses / Procedures Maurice Durbin MD [address] [place] [address] [facility] [address] [place] [address] Closed Diagnoses Sleep apnea Reason for Visit * Reason Comments Nicotine Dependence wants to stop smoking Back Pain Hip Pain Sleep Problem pt says she is falling asle ep during the day again Encounter Details Care Team Description Date Type Department Maurice Durbin MD [address] [place] [address] Sleep Apnea (Primary Dx) 07/03/2008 Office Visit [facility] Primar y Care [place] [address] [place] [address] Social History Date Tobacco Use [...] Reading Time Taken Comments Vital Sign 110/78 07/03/2008 9:17 AM GEOPHYSICAL SUPPORT SPECIALIST Blood Pressure 80 07/03/2008 9:17 AM GEOPHYSICAL SUPPORT SPECIALIST Pulse - - Temperature - - Respiratory Rate - - Oxygen Saturation - - Inhaled Oxygen Concentration - - Weight - - Height - - Body Mass Index documented in this encounter Progress Notes * Maurice Durbin MD - 07/03/2008 1:36 PM GEOPHYSICAL SUPPORT SPECIALIST Ayden Odom is a 38 y.o. female Chief Complaint Patient presents with Nicotine Dependence wants to stop smoking Back Pain Hip Pain Sleep Problem pt says she is falling asleep during the day again patches are not covered has tried wellbutrin and chantix and failed on these as well has been having trouble with wakening and bariatric physician fatigue. Denies a ny other problems at this time except the chronic pain which i have explained we are not going to increase the meds at this time ROS neg except for the above mentioned I have reviewed the patient's past medical, surgical and family history in [facility] and updated the computerized patient record. OBJECTIVE: Physical Exam: BP 110/78 | Pulse 80 | LMP Hysterectomy General appearance: alert, in no distress Lungs: clear to auscultation bilaterally, normal respiratory effort Heart: normal rate, regular rhythm, normal S1, S2, no murmurs, rubs, clicks or g allops Abdomen: Soft, non-tender. Bowel sounds normal. No masses, no organomegaly. ASSESSMENT: Encounter Diagnosis Name Primary? Sleep Apnea Yes PLAN: Orders Placed This Encounter Amb referral to sleep studies HYSICAL SUPPORT SPECIALIST documented in this encounter Plan of Treatment Order Schedule Name Type Priority Associated Diag noses Ordered: 07/03/2008 AMB REFERRAL TO SLEEP Outpatient Routine Sleep Ap ramos STUDIES Referral documented as of this encounter Visit Diagnoses Diagnosis Sleep apnea - Primary Unspecified sleep apnea documented in this encounter"
--- OUTSIDE RECORDS SUMMARY | 2019-10-21 18:46 | XMS REPORT | Encounter Summary ---
Author Author [facility] Organization [facility] Address Unknown Phone Unavailable Care Team Providers Care Threshing Operator Name Role Phone PCP Unavailable Reason for Visit * Reason Comments Medication Refill Encounter Details Care Team Description Date Type Department Michelle Grullon, Parts Sales Counterperson 06/10/2008 Refill [facility] Primmo y [address] [address] Social History Date Tobacco Use Types Packs/Day Years Used Current Every Day Smoker Cigarettes 0.5 15 Comments: STARTED SMOKING AGE 13 Drinks/Week oz/Week Comments Alcohol Use Not Asked Sex Assigned at Date Recorded Not on file Industry Job Start Date Occupation Not on file Not on file Not on file Travel End Travel History Travel Start No recent travel history available. documented as of this encounter Plan of Treatment Not on filedocumented as of this encounter Visit Diagnoses Not on filedocumented in this encounter
--- OUTSIDE RECORDS SUMMARY | 2019-10-21 18:46 | XMS REPORT | Encounter Summary ---
Author Author [facility] Organization [facility] Address Unknown Phone Unavailable Care Team Providers Care Machine Trimmer Name Role Phone PCP Unavailable Encounter Details Care Team Description Date Type Department [facility], Lab Schedule Molina Valenzuela, DO [address] [place] [address] 06/24/2008 [facility] General Encounter Laboratory Services [address] [address] Social History Date Tobacco Use [...] Before meals, at bedtime, and as needed 07/22/2008 COMBIVENT IN Take 2 0 Inhalers [...] mouth daily XR) 20 mg Oral early [id number]: ADHD morning. For adhd 05/25/2008 09/18/2008 furosemide [...] for the past 1 1/2 wks 04/09/08 07/15/2008 ZYPREXA 5 mg Oral Tab Take [...] Procedure Name Priority Date/Time Associated Diag nosis HSV CULTURE Routine 06/24/2008 Vulvar Lesion 12:01 AM FILER METAL PATTERNS documented in this encounter Results * HSV CULTURE (06/24/2008 12:01 AM FILER METAL PATTERNS) SOURCE VAGINALComment: REF RANGE: SEE COMMENT [facility] HSV CULTURE SEE NOTE SEE COMMENT [facility] Comment: [facility] REF RANGE: [facility] NONE ISOLATED Test performed at [facility] [address] [place] [address] [facility], ,,,, Specimen Specimen from genital system (specimen) - Vaginal Performing Organization Address City/State/Zipcode Ph one Number [facility]FACE [facility] CLIA# [id number] Milly RIOJAS [address] [facility] [address] [facility] documented in this encounter Visit Diagnoses Diagnosis Vulvar lesion Other specified noninflammatory disorde r of vulva and perineum documented in this encounter
--- OUTSIDE RECORDS SUMMARY | 2019-10-21 18:47 | XMS REPORT | Encounter Summary ---
Author Author [facility] Organization [facility] Address Unknown Phone Unavailable Care Team Providers Care Agile Project Manager Name Role Phone PCP Unavailable Reason for Visit * Auth/Cert Referred By Contact Referred To Contact Status Reason Specialty Diagnoses / Procedures [facility] Emergency [address] [place] [address] Closed Emergency Medicine Encounter Details Care Team Description Date Type Department [facility], Lab Schedule 05/29/2008 [facility] General Encounter Laboratory Services [address] [address] Social History Date Tobacco Use Types Packs/Day Years Used Current Every Day Smoker Cigarettes 1 15 Comments: STARTED SMOKING AGE 13 Drinks/Week [...] Before meals, at bedtime, and as needed 05/29/2008 06/01/2008 enoxaparin (LOVENOX) 100 Inject 1.2837 1 mL 0 mg/mL subCUT mL by SyrgIndications: Leg subcutaneous swelling, Lower leg pain injection daily. Injected in 2 separate syringes. For a total of 1.2 ml (120 mg) 05/25/2008 06/01/2008 ciprofloxacin (CIPRO) 500 Take 1 Tab by 14 Tab 0 mg Oral Tab mouth 2 times daily for 7 days. 05/25/2008 07/20/2008 clonazePAM (KLONOPIN) 1 Take 1 Tab by 20 Tab 0 mg Oral Tab mouth every 6 hours as needed. For anxiety 05/25/2008 06/25/2008 amphetamine-dextroampheta Take 1 Cap by 30 Cap 0 mine SR 24 hour (ADDERALL mouth daily XR) 20 mg Oral early [id number]: ADHD morning. For adhd 05/25/2008 09/18/2008 furosemide [...] 30 Tab 5 Oral Tab mouth daily. 05/02/2008 06/01/2008 cefUROXime axetil Take 1 Tab by 20 Tab 0 (CEFTIN) 250 mg Oral Tab mouth every 12 hours. 06/30/2008 DILANTIN EXTENDED 100 mg Take 200 [...] 60 mg by 0 mouth daily. 10/31/2007 06/01/2008 COUMADIN PO Take by 0 mouth. 5 mg Tues, Thurs, Sat, Sun & 10 mg Mon, Wed, Fri 10/31/2007 12/02/2009 DUONEB IN Take by 0 inhalation every 6 hours. 10/31/2007 09/18/2008 ADVAIR DISKUS 500-50 Take 1 Puff 0 mcg/Dose Inhalation DsDv by inhalation 2 times daily. documented as of this encounter Plan of Treatment Not on filedocumented as of this encounter Visit Diagnoses Not on filedocumented in this encounter
--- OUTSIDE RECORDS SUMMARY | 2019-10-21 18:47 | XMS REPORT | Encounter Summary ---
Author Author [facility] Organization [facility] Address Unknown Phone Unavailable Care Team Providers Care Reference Investigator Name Role Phone PCP Unavailable Reason for Visit * Reason Comments Sore Throat Medication Refill methadone and allderol Ear Pain right side Encounter Details Care Team Description Date Type Department Maurice Durbin MD [address] [place] [address] ADHD (Primary Dx); Maxillary Sinusitis 05/25/2008 Office Visit [facility] Primar y Care [place] [address] [place] [address] Social History Date Tobacco Use [...] Signs Reading Time Taken Comments Vital Sign 106/74 05/25/2008 11:18 AM HAND SPRING REPAIRER Blood Pressure 80 05/25/2008 11:18 AM HAND SPRING REPAIRER Pulse 36.8 C (98.2 F) 05/25/2008 11:18 AM HAND SPRING REPAIRER Temperature - - Respiratory Rate - - Oxygen Saturation - - Inhaled Oxygen Concentration - - Weight - - Height - - Body Mass Index documented in this encounter Progress Notes * Maurice Durbin MD - 05/25/2008 9:11 PM HAND SPRING REPAIRER SUBJECTIVE: Ayden Odom is a 37 y.o. female with coryza, congestion, sore throat, sw ollen glands, nasal blockage and productive cough for 3 day(s). Temperature annie vated to touch at home. Patient admits to a history of asthma and admits to smo ke cigarettes denies myalgias and headache ROS neg except for the above mentioned I have reviewed the patient's past medical, surgical and family history and upda ari the computerized patient record. OBJECTIVE: BP 106/74 | Pulse 80 | Temp(Src) 98.2 F (36.8 C) (Tympanic) | LMP Hysterecto my General appearance: alert, well appearing, and in no distress. Ears: left ear normal, right TM red, dull, bulging Nose: purulent rhinorrhea and sinus tenderness noted Oropharynx: mucous membranes moist, pharynx normal without lesions Neck: supple, no significant adenopathy Lungs: clear to auscultation, no wheezes, rales or rhonchi, symmetric air entry Heart: normal rate, regular rhythm, normal S1, S2, no murmurs, rubs, clicks or g allops Abdomen: Soft, non-tender. Bowel sounds normal. No masses, no organomegaly. ASSESSMENT: Encounter Diagnoses Name Primary? ADHD Yes Maxillary Sinusitis PLAN: Orders Placed This Encounter Amphetamine-dextroamphetamine sr 20 mg 24 hr cap Furosemide 40 mg tab Methadone 10 mg tab Fluticasone 50 mcg/actuation nasal spray, susp Ciprofloxacin 500 mg tab Symptomatic therapy suggested: use acetaminophen, ibuprofen prn. Call or return to clinic prn if these symptoms worsen or fail to improve as anti cipated. SPRING REPAIRER documented in this encounter Plan of Treatment Not on filedocumented as of this encounter Visit Diagnoses Diagnosis ADHD - Primary Attention deficit disorder with hyperac tivity Maxillary sinusitis Chronic maxillary sinusitis documented in this encounter"
--- OUTSIDE RECORDS SUMMARY | 2019-10-21 18:47 | XMS REPORT | Encounter Summary ---
Author Author [facility] Organization [facility] Address Unknown Phone Unavailable Care Team Providers Care Retail Pharmacy Technician Name Role Phone PCP Unavailable Reason for Visit * Reason Comments Medication Refill Encounter Details Care Team Description Date Type Department Michelle Grullon, Electrical Tech/Project Manager 05/13/2008 Refill [facility] Primmi y [address] [address] Social History Date Tobacco Use [...]
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
--- OUTSIDE RECORDS SUMMARY | 2019-10-21 18:47 | XMS REPORT | Encounter Summary ---
Author Author [facility] Organization [facility] Address Unknown Phone Unavailable Care Team Providers Care Vocational Rehabilitation Specialist Name Role Phone PCP Unavailable Reason for Visit * Reason Comments Medication Refill Encounter Details Care Team Description Date Type Department Maurice Durbin MD [address] [place] [address] 05/25/2008 Refill [facility] Primar y Care [place] [address] [place] [address] Social History Date Tobacco Use [...]
--- OUTSIDE RECORDS SUMMARY | 2019-10-21 18:47 | XMS REPORT | Encounter Summary ---
Author Author [facility] Organization [facility] Address Unknown Phone Unavailable Care Team Providers Care Apartment Maintenance Supervisor Name Role Phone PCP Unavailable Reason for Visit * Reason Comments Immunization/Injection Needs blood thinners again today Encounter Details Care Team Description Date Type Department Becka Watters, HOLE FILLER [address] [place] [address] Leg Pain (Primary Dx) 05/30/2008 Immunization [facility] Conven [address] [address] Social History Date Tobacco Use [...] Comments Vital Sign - - Blood Pressure 106 05/30/2008 5:20 PM RCP Pulse 36.6 C (97.8 F) 05/30/2008 5:20 PM RCP Temperature - - Respiratory Rate 100% 05/30/2008 5:20 PM RCP Oxygen Saturation - - Inhaled Oxygen Concentration - - Weight - - Height - - Body Mass Index documented in this encounter Progress Notes * Becka Watters - 05/31/2008 7:50 PM RCP Ayden presents to the clinic today for a repeat protime, INR, and D-Dimer. Th e INR is not at therapeutic level and since she still has redness and swelling i n the left lower leg, she was sent to the ER and Dr. Canales is going to admit he r for observation until she can have an ultrasound on Sunday. documented in this encounter Plan of Treatment Not on filedocumented as of this encounter Procedures Comments Procedure Name Priority Date/Time Associated Diag nosis PROTIME-INR Stat 05/30/2008 Leg Pain 5:35 PM RCP D-DIMER Stat 05/30/2008 Leg Pain 5:35 PM RCP documented in this encounter Results * PROTIME-INR (05/30/2008 5:35 PM RCP) PROTIME 16.4 (H) 9.5 - 11.5 Sec [facility] REBA LAB INR 1.60 (L)Comment: 2.0 - 3.0 [facility] ACCT#[id number], ,,,, REBA LAB Specimen Blood specimen (specimen) Performing Organization Address [facility] one Number INTERFACE [facility] CLIA# [id number] [facility] REBA, Milly S [address] REBA LAB [address] [facility] * D-DIMER (05/30/2008 5:35 PM RCP) D-DIMER QUANT 633.0 (H) 0 - 400 ng/mL [facility] Comment: [facility] 90% of patients testing below REBA LAB 400 ng/ml have proven negative for Thromboembolic Events. [facility] ACCT#[id number], ,,,, Specimen Blood specimen (specimen) Performing Organization Address [facility] Ph one Number INTERFACE [facility] CLIA# [id number] [facility] REBA, [place] [address] [address] [address] [place] [address] documented in this encounter Visit Diagnoses Diagnosis Leg pain - Primary Pain in limb documented in this encounter
--- OUTSIDE RECORDS SUMMARY | 2019-10-21 18:47 | XMS REPORT | Encounter Summary ---
Author Author [facility] Organization [facility] Address Unknown Phone Unavailable Care Team Providers Care Hospice Patient Care Secretary Name Role Phone PCP Unavailable Reason for Visit * Reason Comments Hip Pain x's 4 days and is worsening everyday-has to lean to her left or she is in so much pain she is crying. Back Pain feels like it has heat in i t-was seen in ER for this last night and can't see her doctor until sunday. Spasms constantly Encounter Details Care Team Description Date Type Department Kashif Land PA [address] [place] [address] Hip Pain (Primary Dx) 05/15/2008 Office Visit [address] [address] Social History Date Tobacco Use [...] Vital Sign - - Blood Pressure 89 05/15/2008 5:31 PM COTTON EXPERT Pulse 36.7 C (98 F) 05/15/2008 5:31 PM COTTON EXPERT Temperature - - Respiratory Rate 98% 05/15/2008 5:31 PM COTTON EXPERT Oxygen Saturation - - Inhaled Oxygen Concentration - - Weight - - Height - - Body Mass Index documented in this encounter Patient Instructions * Patient Instructions* Kashif Land PA - 05/15/2008 10:00 PM COTTON EXPERT Ice for the first 24 to 48 hrs. Elevate affected area. Tylenol or Motrin for dyan n. Foolow up with PCP as scheduled, SunMay 18. C ST documented in this encounter Progress Notes * Kashif Land PA - 05/15/2008 9:59 PM COTTON EXPERT HISTORY OF PRESENT ILLNESS Ayden Odom, a 37 y.o. female. Hip Pain This is a new problem. The current episode started yesterday (Was seen in ER yes terday with diagnosis of muscle spasm, per pt.). The problem occurs constantly. The problem has not changed since onset. The pain is present in the right hip. T he pain quality is described as aching. The pain is at a severity of 6/10. Assoc iated symptoms include limited range of motion. Pertinent negatives include no n umbness and no tingling. The symptoms are worsened by activity and contact. Casandra michelle Tried: Nubain in ER yesterday per pt. The treatment provided mild relief. There has been no history of trauma. Back Pain Pertinent negatives include no chest pain, no headaches and no shortness of eduard th. REVIEW OF SYSTEMS Review of Systems Constitutional: Negative for fever and chills. HENT: Negative for congestion and sore throat. Respiratory: Negative for cough and shortness of breath. Cardiovascular: Negative for chest pain. Gastrointestinal: Negative for nausea, vomiting and diarrhea. Musculoskeletal: Positive for myalgias and joint pain. Skin: Negative for rash. Neurological: Negative for tingling, numbness and headaches. PHYSICAL EXAM Pulse 89 | Temp(Src) 98 F (36.7 C) (Tympanic) | SpO2 98% | LMP Hysterectomy Physical Exam Constitutional: She [...] tenderness. She exhibits no edema. Tender over right hip. No deformity, decreased ROM due to pain. Neurological: She is alert and oriented. No cranial nerve deficit. Skin: Skin is warm and dry. No rash noted. ASSESSMENT and PLAN: Encounter Diagnoses Code Name Primary? Qualifier 719.45F Hip Pain Yes Plan: KETOROLAC TROMETHAMINE 60 MG/2 ML IM, KETOROLAC 60 MG/[address] documented in this encounter Plan of Treatment Not on filedocumented as of this encounter Visit Diagnoses Diagnosis Hip pain - Primary Pain in joint, pelvic region and thigh documented in this encounter"
--- OUTSIDE RECORDS SUMMARY | 2019-10-21 18:47 | XMS REPORT | Encounter Summary ---
Author Author [facility] Organization [facility] Address Unknown Phone Unavailable Care Team Providers Care Narrow Fabrics Weaver Name Role Phone PCP Unavailable Reason for Visit * Reason Comments Medication Refill Encounter Details Care Team Description Date Type Department Michelle Grullon, Radiotelegraph Operator 05/06/2008 Refill [facility] Primms y [address] [address] Social History Date Tobacco Use [...]
--- OUTSIDE RECORDS SUMMARY | 2019-10-21 18:47 | XMS REPORT | Encounter Summary ---
Author Author [facility] Organization [facility] Address Unknown Phone Unavailable Care Team Providers Care Manager Marketing Sales Name Role Phone PCP Unavailable Reason for Visit * Reason Comments Back Pain chronic Fatigue two days with out sleep Tingling right leg Encounter Details Care Team Description Date Type Department 05/14/2008 Emergency [facility] [address] [address] Social History Date Tobacco Use [...] Signs Reading Time Taken Comments Vital Sign 120/64 05/14/2008 7:45 PM NUMBERER AND WIRER Blood Pressure 112 05/14/2008 7:45 PM NUMBERER AND WIRER Pulse 36.8 C (98.2 F) 05/14/2008 7:45 PM NUMBERER AND WIRER Temperature 20 05/14/2008 7:45 PM NUMBERER AND WIRER Respiratory Rate 97% 05/14/2008 7:45 PM NUMBERER AND WIRER Oxygen Saturation - - Inhaled Oxygen Concentration [...] mouth daily XR) 20 mg Oral early [id number]: ADHD morning. For adhd 06/30/2008 DILANTIN EXTENDED [...] Sun & 10 mg Mon, Wed, Fri 12/29/2007 05/25/2008 FUROSEMIDE 20 mg Oral Tab Take 40 mg by 0 mouth daily. 10/31/2007 12/02/2009 DUONEB IN Take by 0 inhalation every 6 hours. 10/31/2007 09/18/2008 ADVAIR DISKUS 500-50 Take 1 Puff 0 mcg/Dose Inhalation DsDv by inhalation 2 times daily. documented as of this encounter ED Notes * Ari Stanley Physician - 05/18/2008 12:02 PM NUMBERER AND WIRER * Rojas Abdi EMT-P - 05/14/2008 8:12 PM NUMBERER AND WIRER Pt was taken to her car in a w/c and was able to get out of the w/c with out hel p and walk 4 steps to the passenger side with out help and with out any problems . ERER AND WIRER * Halie Leung RN - 05/14/2008 8:11 PM NUMBERER AND WIRER Pt wanting to leave due to wait time, ama form signed. ERER AND WIRER * Sarita Pearl RN - 05/14/2008 7:50 PM NUMBERER AND WIRER Pt came into er via W/C. Pt asleep and needed to be awakened to assess. ERER AND WIRER documented in this encounter Plan of Treatment Not on filedocumented as of this encounter Visit Diagnoses Not on filedocumented in this encounter
--- OUTSIDE RECORDS SUMMARY | 2019-10-21 18:47 | XMS REPORT | Encounter Summary ---
Author Author [facility] Organization [facility] Address Unknown Phone Unavailable Care Team Providers Care Electronic Equipment Trades Worker Name Role Phone PCP Unavailable Reason for Visit * Reason Comments Pain muscule spasms and constant pain Fall 3 times, wants a commode, n eeds rx for it Medication Refill neurotin Encounter Details Care Team Description Date Type Department Maurice Durbin MD [address] [place] [address] Back Pain (Primary Dx) 05/18/2008 Office Visit [facility] Primar y Care [place] [address] [place] [address] Social History Date Tobacco [...] Signs Reading Time Taken Comments Vital Sign 122/84 05/18/2008 2:48 PM ENTRY LEVEL FINANCIAL ANALYST Blood Pressure 90 05/18/2008 2:48 PM ENTRY LEVEL FINANCIAL ANALYST Pulse 36.9 C (98.4 F) 05/18/2008 2:48 PM ENTRY LEVEL FINANCIAL ANALYST Temperature - - Respiratory Rate - - Oxygen Saturation - - Inhaled Oxygen Concentration - - Weight - - Height - - Body Mass Index documented in this encounter Progress Notes * Maurice Durbin MD - 05/18/2008 4:34 PM ENTRY LEVEL FINANCIAL ANALYST Ayden Odom is a 37 y.o. female Chief Complaint Patient presents with Pain muscule spasms and constant pain Fall 3 times, wants a commode, needs rx for it Medication Refill neurotin Has been having a lot of pain for the last few days and spasms explained that we are not going to increase the pain med as the patient invariably falls with it OBJECTIVE: Physical Exam: BP 122/84 | Pulse 90 | Temp(Src) 98.4 F (36.9 C) (Tympanic) | LMP Hysterecto my General appearance: alert, in no distress Lungs: clear to auscultation bilaterally, normal respiratory effort Heart: normal rate, regular rhythm, normal S1, S2, no murmurs, rubs, clicks or g allops Abdomen: Soft, non-tender. Bowel sounds normal. No masses, no organomegaly. ASSESSMENT: Encounter Diagnosis Name Primary? Back Pain Yes PLAN: Orders Placed This Encounter Xr lumbar spine 2 or 3 vw Ketorolac 60 mg/2 ml injection Baclofen 10 mg tab Ketorolac tromethamine 60 mg/2 ml im Y LEVEL FINANCIAL ANALYST documented in this encounter Plan of Treatment Not on filedocumented as of this encounter Results * XR LUMBAR SPINE 2 OR 3 VW (05/18/2008 3:22 PM ENTRY LEVEL FINANCIAL ANALYST) Specimen Impressions Performed At : Normal lumbar spine. Narrative Performed At LUMBAR SPINE: Done May 18, 2008. HISTORY: Back pain. Three views are obtained. There is a TIBC filter in place. There are no fractures or subluxation seen. Bony masses are noted. There are no significant degenerative changes. There are clips in the right u pper quadrant consistent with prior cholecystectomy. Procedure Note Donaldo Aleman MD - 2008 12:01 AM ENTRY LEVEL FINANCIAL ANALYST LUMBAR SPINE: Done May 18, 2008. HISTORY: Back pain. Three views are obtained. There is a TIBC filter in place. There are no fractures or subluxation seen. Bony masses are noted. There are no significant degenerative changes. There are clips in the right upper quadrant consistent with prior cholecystectomy. IMPRESSION: Normal lumbar spine. documented in this encounter Visit Diagnoses Diagnosis Back pain - Primary Backache, unspecified documented in this encounter"
--- OUTSIDE RECORDS SUMMARY | 2019-10-21 18:47 | XMS REPORT | Encounter Summary ---
Author Author [facility] Organization [facility] Address Unknown Phone Unavailable Care Team Providers Care Internet Webmaster Name Role Phone PCP Unavailable Reason for Visit * Reason Comments Medication Refill Encounter Details Care Team Description Date Type Department Michelle Grullon, Business Dean 05/25/2008 Refill [facility] Prim[facility] [address] [address] Social History Date Tobacco Use [...]
--- OUTSIDE RECORDS SUMMARY | 2019-10-21 18:47 | XMS REPORT | Encounter Summary ---
Author Author [facility] Organization [facility] Address Unknown Phone Unavailable Care Team Providers Care Dioramist Name Role Phone PCP Unavailable Reason for Visit * Reason Comments Medication Refill Encounter Details Care Team Description Date Type Department Maurice Durbin MD [address] [place] [address] 05/25/2008 Refill [facility] Primar y Care [place] [address] [place] [address] Social History Date [...]
--- OUTSIDE RECORDS SUMMARY | 2019-10-21 18:47 | XMS REPORT | Encounter Summary ---
Author Author [facility] Organization [facility] Address Unknown Phone Unavailable Care Team Providers Care Assistant Professor Of Communication Name Role Phone PCP Unavailable Encounter Details Care Team Description Date Type Department Maurice Durbin MD [address] [place] [address] 05/18/2008 Hospital [facility] Encounter [address] [address] Social History Date Tobacco Use [...] mouth daily XR) 20 mg Oral early [id number]: ADHD morning. For adhd 06/30/2008 DILANTIN EXTENDED [...] Form - Matt Lemons, Ari Physician - 05/20/2008 1:40 PM FRESH FOODS TECHNICIAN documented in this encounter Plan of Treatment Not on filedocumented as of this encounter Procedures Comments Procedure Name Priority Date/Time Associated Diag nosis XR LUMBAR SPINE 2 OR 3 VW Routine 05/18/2008 Back Pain 3:22 PM FRESH FOODS TECHNICIAN documented in this encounter Results * XR LUMBAR SPINE 2 OR 3 VW (05/18/2008 3:22 PM FRESH FOODS TECHNICIAN) Specimen Impressions Performed At : Normal lumbar [...] Donaldo Aleman MD - 2008 12:01 AM FRESH FOODS TECHNICIAN LUMBAR SPINE: Done May 18, 2008. HISTORY: [...]
--- OUTSIDE RECORDS SUMMARY | 2019-10-21 18:47 | XMS REPORT | Encounter Summary ---
Author Author [facility] Organization [facility] Address Unknown Phone Unavailable Care Team Providers Care Surveyor Geodetic Name Role Phone PCP Unavailable Reason for Visit * Reason Comments Leg Swelling Hand Swelling Other feels swollen everywhere Encounter Details Care Team Description Date Type Department Becka Watters, SPLIT LEATHER MOSSER [address] [place] [address] Leg Swelling; Lower Leg Pain; Shortness of Breath 05/29/2008 Office Visit [address] [address] Social History Date Tobacco [...] Vital Sign - - Blood Pressure 102 05/29/2008 9:26 PM DIRECTOR MEDICAL SAFETY Pulse 36.9 C (98.4 F) 05/29/2008 9:26 PM DIRECTOR MEDICAL SAFETY Temperature - - Respiratory Rate 96% 05/29/2008 9:26 PM DIRECTOR MEDICAL SAFETY Oxygen Saturation - - Inhaled Oxygen Concentration - - Weight - - Height - - Body Mass Index documented in this encounter Patient Instructions * Patient Instructions* Becka Watters - 05/29/2008 11:31 PM DIRECTOR MEDICAL SAFETY Take extra coumadin 10 mg tonight. Take extra 40 mg of Lasix tonight. Return to Urgent Care tomorrow 05/20/08 between 0900 and 1300 for repeat INR and possible Lovenox injection. If symptoms worsen during night, return to ER. CTOR MEDICAL SAFETY documented in this encounter Progress Notes * Becka Watters. - 05/29/2008 11:38 PM DIRECTOR MEDICAL SAFETY HISTORY OF PRESENT ILLNESS Ayden Odom, a 38 y.o. female. Leg Swelling This is a new problem. The current episode started 3 to 5 hours ago. The problem occurs constantly. The problem has been gradually worsening. Associated symptoms include shortness of breath. The symptoms are worsened by standing. Nothing re lieves the symptoms. She has tried rest for the symptoms. Shortness of Breath This is a new problem. The average episode lasts 10 minutes. The problem occurs frequently. The current episode started 1 to 2 hours ago. The problem has been g radually worsening. Associated symptoms include wheezing, orthopnea and leg swel ling. It is unknown what precipitated the problem. Risk factors: obesity, sedent kierra lifestyle, PMH of DVT. She has had prior hospitalizations. She has had prior ED visits. Associated medical issues include PE and DVT. REVIEW OF SYSTEMS Review of Systems Constitutional: Positive for malaise/fatigue. HENT: Positive for congestion. Eyes: Negative. Respiratory: Positive for shortness of breath and wheezing. Asthma history Cardiovascular: Positive for orthopnea and leg swelling. Gastrointestinal: Negative. Genitourinary: Negative. Musculoskeletal: Positive for myalgias. Skin: Negative. Neurological: Negative. Endo/Heme/Allergies: Negative. Psychiatric/Behavioral: Positive for depression. Bi-Polar disorder PHYSICAL EXAM Pulse 102 | Temp(Src) 98.4 F (36.9 C) (Tympanic) | SpO2 96% | LMP Hysterecto my Physical Exam Nursing note and vitals reviewed. Constitutional: She is oriented. She appears well-developed and well-nourished. No distress. HENT: Right Ear: External ear normal. Left Ear: External ear normal. Nose: Nose normal. Mouth/Throat: Oropharynx is clear and moist. Neck: Normal range of motion. Neck supple. Cardiovascular: Normal rate and regular rhythm. Pulmonary/Chest: She has wheezes. Abdominal: Soft. Obese abdomen. Exam impaired by body habitus. Musculoskeletal: She exhibits edema and tenderness. Left lower and right lower leg. Redness left lower leg. Unable to perform Austin's sign exam due to body habitus. Neurological: She is alert and oriented. Skin: Skin is warm and dry. Psychiatric: Her speech is normal. Thought content normal. Her mood appears anxi ous. She is aggressive. I discussed this patient and findings with Dr. Nunn, ER physician. A joint de cision was made to give the Lovenox this pm. Here at the clinic. The patient an d her , who accompanied her, was given instructions to take an extra dose of coumadin, 10 mg tonight and extra dose of Lasix, 40 mg tonight. They are to return to ER tonight if problems worsen. Then the patient will return to Urgent Care tomorrow. ASSESSMENT and PLAN: Encounter Diagnoses Code Name Primary? Qualifier 729.81N Leg Swelling Plan: BASIC METABOLIC PANEL, PROTIME-INR, BRAIN NATRIURETIC PEPTIDE, BNP OR PRO BNP, ENOXAPARIN 40 MG/0.4 ML SUB-Q SYRINGE, ENOXAPARIN 100 MG/ML SUB-Q SYRINGE 729.5BB Lower Leg Pain Plan: BASIC METABOLIC PANEL, PROTIME-INR, BRAIN NATRIURETIC PEPTIDE, BNP OR PRO BNP, ENOXAPARIN 40 MG/0.4 ML SUB-Q SYRINGE, ENOXAPARIN 100 MG/ML SUB-Q SYRINGE 786.05 Shortness of Breath Plan: BASIC METABOLIC PANEL, PROTIME-INR, BRAIN NATRIURETIC PEPTIDE, BNP OR PRO BNP CTOR MEDICAL SAFETY documented in this encounter Procedure Notes * Becka Watters - 05/30/2008 12:10 AM DIRECTOR MEDICAL SAFETY Lovenox 0.5ml of 1ml = 40 mg dose given on 05/29/08 in abdomen by Kvng BALDWIN for 20 mg actual dose Lovenox 1 mg 0f lml = 100 mg dose given on 05/29/08 by Kvng BALDWIN in abdomen. Total dose given 120 mg. CTOR MEDICAL SAFETY documented in this encounter Plan of Treatment Not on filedocumented as of this encounter Procedures Comments Procedure Name Priority Date/Time Associated Diag nosis PROTIME-INR Stat 05/29/2008 Leg Swelling 9:48 PM DIRECTOR MEDICAL SAFETY Lower Leg Pain Shortness of Breath BASIC METABOLIC PANEL Stat 05/29/2008 Leg Swel ling 9:48 PM DIRECTOR MEDICAL SAFETY Lower Leg Pain Shortness of Breath BRAIN NATRIURETIC Stat 05/29/2008 Leg Swelling PEPTIDE, BNP OR PROBNP 12:01 AM DIRECTOR MEDICAL SAFETY Lower Leg Pain Shortness of Breath documented in this encounter Results * PROTIME-INR (05/29/2008 9:48 PM DIRECTOR MEDICAL SAFETY) PROTIME 14.7 (H) 9.5 - 11.5 Sec [facility] INR 1.43 (L)Comment: 2.0 - 3.0 [facility] ACCT#[id number], ,,,, [facility] Specimen Blood specimen (specimen) Performing Organization Address [facility] Ph one Number INTERFACE SYSTEM [facility] CLIA# [id number] Milly RIOJAS [id number] [facility] [address] [place] [address] * BASIC METABOLIC PANEL (05/29/2008 9:48 PM DIRECTOR MEDICAL SAFETY) GLUCOSE 151 (H) 70 - 110 mg/dl [facility] BUN 14.0 7 - 20 mg/dl [facility] CREATININE 1.00 0.6 - 1.0 mg/dl [facility] BUN/CREAT RATIO 14.0 10 - 20 [facility] GFR 67 >90 ml/min [facility] SODIUM 140 135 - 145 mmol/L [facility] POTASSIUM 3.8 3.3 - 4.8 mmol/L [facility] CHLORIDE 107 98 - 107 mmol/L [facility] CO2 23.5 22 - 31 mmol/L [facility] ANION GAP 13 4 - 20 [facility] CALCIUM 8.5Comment: CLEMENTE ROBISON 8.5 - 10.1 mg/dl [facility] ACCT#[id number], ,,,, CENTER [facility] Specimen Blood specimen (specimen) Performing Organization Address City/[facility] Ph one Number INTERFACE SYSTEM [facility] CLIA# [id number] Milly RIOJAS [id number] [facility] [address] [place] [address] * BRAIN NATRIURETIC PEPTIDE, BNP OR PROBNP (05/29/2008 12:01 AM DIRECTOR MEDICAL SAFETY) BRAIN 70Comment: CLEMENTE ROBISON 0 - 125 pg/ml [facility] NATRIURETIC ACCT#[id number], ,,,, [facility] [place] PEPTIDE [facility] Specimen Blood specimen (specimen) Performing Organization Address City/State/Zipcode Ph one Number INTERFACE SYSTEM [facility] CLIA# [id number] Milly RIOJAS [id number] [facility] [address] [place] [address] documented in this encounter Visit Diagnoses Diagnosis Leg swelling Swelling of limb Lower leg pain Pain in limb Shortness of breath documented in this encounter"
--- OUTSIDE RECORDS SUMMARY | 2019-10-21 18:47 | XMS REPORT | Encounter Summary ---
Author Author [facility] Organization [facility] Address Unknown Phone Unavailable Care Team Providers Care Director Of Student Aid Name Role Phone PCP Unavailable Reason for Visit * Reason Comments Medication Problem protime too low * Auth/Cert Referred By Contact Referred To Contact Status Reason Specialty Diagnoses / Procedures [facility] Emergency [address] [place] [address] Closed Emergency Medicine Encounter Details Care Team Description Date Type Department Saturnino Canales MD NO ADDRESS ON FILE Maurice Durbin MD [address] [place] [address] Lavell Bautista MD [address] [place] [id number] Type II or unspecified type diabetes flori litus without mention of complication, not stated as uncontrolled 05/30/2008 [facility] ort - Encounter [facility] 06/01/2008 [address] [place] [address] Social History Date Tobacco Use [...] Signs Reading Time Taken Comments Vital Sign 138/86 06/01/2008 10:19 AM INFRASTRUCTURE DIRECTOR Blood Pressure 80 06/01/2008 10:46 AM INFRASTRUCTURE DIRECTOR Pulse 36.3 C (97.3 F) 06/01/2008 10:19 AM INFRASTRUCTURE DIRECTOR Temperature 20 06/01/2008 10:42 AM INFRASTRUCTURE DIRECTOR Respiratory Rate 97% 06/01/2008 10:46 AM INFRASTRUCTURE DIRECTOR Oxygen Saturation - - Inhaled Oxygen Concentration 107 kg (236 lb) 05/30/2008 10:50 PM INFRASTRUCTURE DIRECTOR Weight 160 cm (5' 3") 05/30/2008 10:50 PM INFRASTRUCTURE DIRECTOR Height 41.81 05/30/2008 10:50 PM INFRASTRUCTURE DIRECTOR Body Mass Index documented in this encounter Discharge Summaries * Maurice Durbin MD - 07/13/2008 4:05 PM INFRASTRUCTURE DIRECTOR [facility]. [address] [place] [address] DISCHARGE SUMMARY Patient: JERALD VELAZQUEZ Location: [facility] Room#: SG710-2 Unit#: [id number] Attending Physician: Bear Fraser Admitted: 05/30/08 Discharged: ADMITTING DIAGNOSES: The patient is a 38-year-old white female who was admitted to the hospital with concern for DVT. The patient was started on Lovenox as her Coumadin was subtherapeutic. The patient overall did fairly well. She did not h ave any difficulties. We did wait and keep the patient around to get an ultrasou nd. She tolerated the Lovenox fairly well. At the time of discharge her INR was 2.7. She denied any difficulties. At the time of discharge the patient was stabl e without any problems. DISCHARGE DIAGNOSES: 1. DVT with subtherapeutic Coumadin and leg pain. The patient will be discharged home. Follow up in the office in the next few da ys. Dictated by: Maurice Durbin M.D. DD 06/04/08 TD 07/13/08 1605/HGD DISCHARGE SUMMARY # [id number] ASTRUCTURE DIRECTOR documented in this encounter Discharge Instructions * Patient Instructions* Ari Stanley - 06/03/2008 9:38 AM INFRASTRUCTURE DIRECTOR * Additional Instructions* Marianne Carpio RN - 06/01/2008 follow up with Maurice Durbin MD in 3-5 days on June 05 @ 10:30am Acitivy as tolerated Diet diabetic * Attachments The following attachments cannot be sent through Care Everywhere.* Thrombophlebitis - Deep Vein-EI documented in this encounter Medications at Time of Discharge Start Date End Date Medication Sig Dispensed Refills 10/05/2007 Oxygen-Air Delivery Take 2 L/min 0 Systems Misc Leisa by inhalation daily at bedtime. 10/05/2007 ACCU-CHEK ACTIVE CARE by See Admin 0 Misc Kit Instructions route. Before meals, at bedtime, and as needed 06/01/2008 06/08/2008 ciprofloxacin (CIPRO) 500 Take 1 Tab by 14 Tab 0 mg Oral Tab mouth 2 times daily for 7 days. 06/01/2008 12/28/2008 warfarin (COUMADIN) 5 mg Take [...] mouth daily XR) 20 mg Oral early [id number]: ADHD morning. For adhd 05/25/2008 09/18/2008 furosemide [...] times daily. documented as of this encounter Progress Notes * Raiza Spring RN - 06/01/2008 1:54 PM INFRASTRUCTURE DIRECTOR Pt discharged to home @ 1200 on 06/01/2008, per physician's orders. All belongings returned to the patient prior to her dismissal. All questions ans wered. ASTRUCTURE DIRECTOR * Marianne Carpio, JUAN DAVID - 06/01/2008 11:58 AM INFRASTRUCTURE DIRECTOR Spoke with Jerald. She states that she does not need any Coumadin called in at this time, but does need a refill on her Dilantin and the new Cipro that was or dered. Bautista [facility] called and Cipro 500mg - 1 twice daily X 7 days (#14) and 1 month supply of Dilantin Extended 100mg (200mg twice daily) orders given. Spo ke with Jose Carlos. ASTRUCTURE DIRECTOR documented in this encounter H&P Notes * Maurice Durbin MD - 05/31/2008 8:59 AM INFRASTRUCTURE DIRECTOR [facility]. [address] [place] [address] HISTORY AND PHYSICAL Patient: JERALD VELAZQUEZ Location: [facility] Room#: ZK820-2 Unit#: [id number] Attending Physician: Bear Fraser Admitted: 05/30/08 Service Date: 05/30/08 REASON FOR ADMISSION: DVT suspected. HISTORY OF PRESENTING ILLNESS: The patient is a 38 year-old white female with a history of DVT pulmonary embolism with [place] filter placement who presented to Urgent Care on Sunday night. The patient was seen in Urgent Care, was given a shot of Lovenox however by day two when the patient came into Urgent Care again her D-dimer was severely elevated as well as the patient was still having some shortness of breath. Her INR really only went up to 1.6. The patient was started on Coumadin. She seemed to tolerated that fairly well. This morning she states she is feeling a little bit better. Denies any other difficulties at the present time. PAST MEDICAL HISTORY: Significant for asthma, diabetes, bipolar disorder, seizu re disorder, pulmonary embolism, migraines and DVT. PAST SURGICAL HISTORY: JOB/BSO 1995, ORIF both hips 1997, carpal tunnel release 2001, shoulder surgery 2006, appendix removed, gallbladder 1999, tubal ligation 1994. FAMILY HISTORY: Father with heart disease, cancer, blood pressure problems and diabetes. Mother with stroke, diabetes, heart disease and cancer. Brother with s ian. Grandmother with stroke, diabetes, heart disease and cancer. Grandfathe r with cancer. SOCIAL HISTORY: She smokes about half to one pack per day. Does not drink. Edgar es any drug use recently. 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 REVIEW OF SYSTEMS: Negative except for the above mentioned. OBJECTIVE: VITAL SIGNS: Temp 97.3, BP 97/61, pulse 92, resp rate 22. O2 sat 96. HEENT: PER RL, EOMI. Nares clear. Throat clear. NECK: Soft, supple. No crepitus, masses, adenopathy. CVS: Regular rate and rhythm. LUNGS: Clear. ABDOMEN: Soft, nontender. EXTREMITIES: No clubbing or cyanosis. N EURO: II-XII grossly intact. ADMITTING DIAGNOSIS PLAN: Questionable DVT. Continue the patient on Lovenox. Ge t her up to therapeutic level. Ultrasound in the a.m. Continue to monitor the pa tients progress. Dictated by: Maurice Durbin M.D. DD 05/31/08 TD 05/31/08 0859/RAYA HISTORY AND PHYSICAL # [id number] ASTRUCTURE DIRECTOR documented in this encounter ED Notes * Kirstin [place] RN - 05/30/2008 10:03 PM INFRASTRUCTURE DIRECTOR Pt noted to be out smoking at this time. ASTRUCTURE DIRECTOR * Saturnino Canales MD - 05/30/2008 9:00 PM INFRASTRUCTURE DIRECTOR HISTORY OF PRESENT ILLNESS Jerald Velazquez, a 38 y.o. female presents to the ED with a Chief Complaint o f Medication Problem Patient is a 38 y.o. female presenting with medication problem. The history is p rovided by the patient. Medication Problem This is a recurrent problem. The current episode started more than 2 days ago. T he problem occurs constantly. The problem has not changed since onset. Associate d symptoms include shortness of breath (chronic in nature). Pertinent negatives include no chest pain, no abdominal pain and no headaches. The symptoms are wors ened by walking. Nothing relieves the symptoms. Treatments Tried: tried some las ix for swelling. The treatment provided no relief. REVIEW OF SYSTEMS Review of Systems Constitutional: Negative for fever and chills. HENT: Negative for congestion, sore throat and ear discharge. Respiratory: Positive for shortness of breath (chronic in nature). Negative for cough, hemoptysis and sputum production. Cardiovascular: Negative for chest pain, orthopnea and [...] Aloe vera, Tape and Doxycycline HOME MEDICATIONS enoxaparin (LOVENOX) 100 mg/mL subCUT Syrg Inject 1.2837 mL by subcutaneous injection daily. Injected in 2 separate syringes. For a total of 1.2 ml (120 mg ) clonazePAM (KLONOPIN) 1 mg Oral Tab Take 1 Tab by mouth every 6 hours as nee ded. For anxiety NEURONTIN 300 mg Oral Cap Take 1 Cap by mouth 3 times daily. Three tabs bid amphetamine-dextroamphetamine SR 24 hour (ADDERALL XR) 20 mg Oral Cp24 Take 1 Cap by mouth daily tax manager. For adhd furosemide (LASIX) 40 mg Oral Tab Take 1 Tab by mouth daily. methadone (DOLOPHINE) 10 mg Oral Tab Take 1 Tab by mouth 3 times daily. fluticasone (FLONASE) 50 mcg/Actuation Both Nostril SpSn Administer 2 Sprays in each nostril daily. ciprofloxacin (CIPRO) 500 mg Oral Tab Take 1 Tab by mouth 2 times daily for 7 days. baclofen (LIORESAL) 10 mg Oral Tab Take [...] Tab by mouth every 12 hour s. DILANTIN EXTENDED 100 mg Oral Cap Take 200 mg by mouth 2 times daily. Hasn't been taking for the past 1 1/2 wks 04/09/08 topiramate (TOPAMAX) 50 mg Oral Tab Take 1 Tab by mouth daily at bedtime. topiramate (TOPAMAX) 100 mg Oral Tab Take 1 Tab by mouth daily at bedtime. benzonatate (TESSALON) 100 mg Oral Cap Take 1 Cap by mouth 3 times daily. CHANTIX PO Take by mouth. ZYPREXA 5 mg Oral Tab Take 5 mg by mouth daily at bedtime. cyclobenzaprine (FLEXERIL) 10 mg Oral Tab Take 1 Tab by mouth 3 times daily as needed for Spasm for 90 doses. CYMBALTA 60 mg Oral CpDR Take 60 mg by mouth daily. Oxygen-Air Delivery Systems Misc Leisa Take 2 L/min by inhalation daily at [facility]. ACCU-CHEK ACTIVE CARE Misc Kit by See Admin Instructions route. Before meals , at bedtime, and as needed LOVAZA 1 gram Oral Cap Take 1 Gram by mouth 3 times daily. ALBUTEROL IN Take 2 Puffs by inhalation every 4 hours as needed. COUMADIN PO Take by mouth. 5 mg Tues, Th, Sat, Sun & 10 mg Mon, Sun, Sun NEURONTIN PO Take 900 mg by mouth every 12 hours. DUONEB IN Take by inhalation every 6 hours. ADVAIR DISKUS 500-50 mcg/Dose Inhalation DsDv Take 1 Puff by inhalation 2 ti mes daily. PHYSICAL EXAM Initial Vitals BP 05/30/082 150/86 mmHg Pulse 05/30/082041 93 Resp 05/30/082 20 Temp 05/30/082041 97.8 F (36.6 C) Temp src 05/30/082041 Oral SpO2 05/30/082041 96 % Physical Exam Vitals reviewed. Constitutional: She is oriented. She appears [...] mass . No tenderness. Musculoskeletal: She exhibits edema. 2+ edema right and left. Positive Homans sign on left. Posterior left calf is warm to touch, no reddened Lymphadenopathy: She has no cervical adenopathy. Neurological: She is alert and oriented. No cranial nerve deficit. Coordination normal. Skin: Skin is warm and dry. No rash noted. Psychiatric: She has a normal mood and affect. Her behavior is normal. Coding DIAGNOSTICS LAB: Results for orders placed in visit on 05/30/2008 (from the past 24 hour(s)) D-DIMER Component Value Range D-DIMER QUANT 633.0 (*) 0-400 (ng/mL) PROTIME-INR Component Value Range PROTIME 16.4 (*) 9.5-11.5 (Sec) INR 1.60 (*) 2.0-3.0 RADIOLOGY: EKG: PROCEDURES MEDICAL DECISION MAKING AND PLAN OF CARE Last vitals BP 150/86 | Pulse 93 | Temp(Src) 97.8 F (36.6 C) (Oral) | Resp 20 | SpO2 96% | LMP Hysterectomy CLINICAL IMPRESSION No diagnosis found. CASE DISCUSSED PATIENT COUNSELING Diagnostics reviewed and questions answered. Diagnosis, treatment options and p radha of care discussed with understanding verbalized. DISPOSITION, EDUCATION AND MEDICATION RECONCILIATION Medications reconciled. See after visit summary for patient education on discha rged patients. Patient is not therapeutic on her Coumadin. Has a history of poor compliance so does not seem to be a candidate for home lovenox treatments. Ultrasound is not a vailble until Sunday. Has an extensive history of DVT. Has a very high D-dimer. Will admit for inpatient treatment until can rule out DVT. ASTRUCTURE DIRECTOR documented in this encounter Miscellaneous Notes * Scanned Form - Ari Stanley Physician - 06/10/2008 10:38 AM INFRASTRUCTURE DIRECTOR * Care Plan - Raiza Spring RN - 06/01/2008 1:59 PM INFRASTRUCTURE DIRECTOR Problem: Venous Thromboembolic Disease, VTE and PE (Adult, OB, Pediatric) Goal: Verbalize Understanding: Condition, plan of care, self-management of healt h/lifestyle alterations Patient/Family/S.O. will verbalize an understanding of Venous Thromboembolic Dis ease, VTE and PE (Adult, OB, Pediatric) its impact on present/future lifestyle, health status and functional performance Outcome: Completed Date Met: 06/01/08 Goal met. Pt verbalized understanding of above information during discharge educ ation. Pt discharged to home @ 1200 on 06/01/2008, per physician's orders. Goal: Prevent/manage embolism --> tissue ischemia/infarction Refer to Clinical Practice Guideline Outcome: Completed Date Met: 06/01/08 Goal met. No signs or symptoms of tissue ischemia/infarction noted prior to the patient's dismissal. Pt discharged to home @ 1200 on 06/01/2008, per physician's orders. Goal: Prevent/manage extension of thrombus Refer to Clinical Practice Guideline Outcome: Completed Date Met: 06/01/08 Goal met. No signs or symptoms of extension of thrombus noted prior to the patie nt's dismissal. Pt discharged to home @ 1200 on 06/01/2008, per physician's orders. ASTRUCTURE DIRECTOR * Care Plan - Yemi Dukes - 06/01/2008 9:53 AM INFRASTRUCTURE DIRECTOR Problem: Powerlessness (Adult, OB) Intervention: Promote Self-Awareness Helped patient to be aware of her present moment and how to stay in the present for her serenity. ASTRUCTURE DIRECTOR * Care Plan - Yemi Dukes - 06/01/2008 9:51 AM INFRASTRUCTURE DIRECTOR Problem: Powerlessness (Adult, OB) Goal: Increased Sense of Control Refer to Clinical Practice Guideline Outcome: Completed Date Met: 06/01/08 Intervention: Reminded patient of her choices she makes today will effect her t omorrow. ASTRUCTURE DIRECTOR * Care Plan - Yemi Dukes - 06/01/2008 9:49 AM INFRASTRUCTURE DIRECTOR Problem: Powerlessness (Adult, OB) Goal: Verbalize Understanding: Condition, plan of care, self-management of healt h/lifestyle alterations Patient/Family/S.O. will verbalize an understanding of Powerlessness (Adult, FARHEEN U, OB, Pediatric) its impact on present/future lifestyle, health status and func tional performance Outcome: Completed Date Met: 06/01/08 Intervention: Encouraged patient to live in the present moment. ASTRUCTURE DIRECTOR * Care Plan - Heydi Fitzgerald RD - 06/01/2008 12:00 AM INFRASTRUCTURE DIRECTOR Pt provided with Vitamin K and Medications handout due to warfarin order. RD na me and number was provided along with handout. ASTRUCTURE DIRECTOR * Care Plan - Michelle Sosa RN - 05/31/2008 6:51 AM INFRASTRUCTURE DIRECTOR Problem: Venous Thromboembolic Disease, VTE and PE (Adult, OB, Pediatric) Goal: Verbalize Understanding: Condition, plan of care, self-management of healt h/lifestyle alterations Patient/Family/S.O. will verbalize an understanding of Venous Thromboembolic Dis ease, VTE and PE (Adult, OB, Pediatric) its impact on present/future lifestyle, health status and functional performance Outcome: Ongoing Plan of care discussed with patient ASTRUCTURE DIRECTOR documented in this encounter Plan of Treatment Order Schedule Name Type Priority Associated Diag noses Rad Once for 1 Occurrences starting 05/05 until 05/30/2008 US VENOUS DOPPLER LEG Imaging Stat BILATERAL documented as of this encounter Procedures Comments Procedure Name Priority Date/Time Associated Diag nosis US VENOUS DOPPLER LEG Routine 06/01/2008 BILATERAL 11:25 AM INFRASTRUCTURE DIRECTOR PROTIME-INR Stat 06/01/2008 6:00 AM INFRASTRUCTURE DIRECTOR CBC WITHOUT DIFFERENTIAL Routine 06/01/2008 6:00 AM INFRASTRUCTURE DIRECTOR COMPREHENSIVE METABOLIC Routine 06/01/2008 PANEL 6:00 AM INFRASTRUCTURE DIRECTOR POC GLUCOSE Routine 05/31/2008 8:51 PM INFRASTRUCTURE DIRECTOR POC GLUCOSE Routine 05/31/2008 4:39 PM INFRASTRUCTURE DIRECTOR POC GLUCOSE Routine 05/31/2008 10:55 AM INFRASTRUCTURE DIRECTOR POC GLUCOSE Routine 05/31/2008 8:42 AM INFRASTRUCTURE DIRECTOR PROTIME-INR Stat 05/31/2008 6:45 AM INFRASTRUCTURE DIRECTOR XR CHEST PA OR AP 1 VW Stat 05/30/2008 10:34 PM INFRASTRUCTURE DIRECTOR CBC WITH DIFFERENTIAL Stat 05/30/2008 12:01 AM INFRASTRUCTURE DIRECTOR COMPREHENSIVE METABOLIC Stat 05/30/2008 PANEL 12:01 AM INFRASTRUCTURE DIRECTOR documented in this encounter Results * US VENOUS DOPPLER LEG BILATERAL (06/01/2008 11:25 AM INFRASTRUCTURE DIRECTOR) Specimen Impressions Performed At : No evidence of DVT. Narrative Performed At DUPLEX VENOUS DOPPLER ULTRASOUND BILATE RAL LOWER EXTREMITIES: HISTORY: HISTORY OF PRIOR DVT. HIST ORY OF IVC FILTER. Multiple longitudinal and transverse im ages are obtained through the venous system of the lower extremities with torrez scale, color, and spectral Doppler analysis. The exam w as somewhat suboptimal secondary to patient's size. There was normal flow seen in the common femoral, superficial femoral, popliteal and calf veins bilaterally. There was normal respiratory variation and augmen tation. The veins appear compressible. Procedure Note Donaldo Aleman MD - 06/01/2008 4:17 PM INFRASTRUCTURE DIRECTOR DUPLEX VENOUS DOPPLER ULTRASOUND BILATERAL LOWER EXTREMITIES: HISTORY: HISTORY OF PRIOR DVT. HISTORY OF IVC FILTER. Multiple longitudinal and transverse images are obtained through the venous system of the lower extremities with torrez scale, color, and spectral Doppler analysis. The exam was somewhat suboptimal secondary to patient's size. There was normal flow seen in the common femoral, superficial femoral, popliteal and calf veins bilaterally. There was normal respiratory variation and augmentation. The veins appear compressible. IMPRESSION: No evidence of DVT. * PROTIME-INR (06/01/2008 6:00 AM INFRASTRUCTURE DIRECTOR) PROTIME 27.2 (H) 9.5 - 11.5 Sec [facility] INR 2.74Comment: CLEMENTE ROBISON 2.0 - 3.0 [facility] ACCT#[id number], ,,,, CENTER [facility] Specimen Blood specimen (specimen) Performing Organization Address City/State/Zipcode Ph one Number INTERFACE SYSTEM [facility] GERARDO# [id number] Milly RIOJAS [id number] [facility] [address] [facility] * CBC WITHOUT DIFFERENTIAL (06/01/2008 6:00 AM INFRASTRUCTURE DIRECTOR) WBC 7.79 3.0 - 10.4 x10E3 [facility] RBC 3.46 (L) 3.77 - 4.97 x10E6 [facility] HEMOGLOBIN 11.0 (L) 11.9 - 15.0 g/dL [facility] HEMATOCRIT 31.9 (L) 34.4 - 43.6 % [facility] MCV 92.3 79 - 100 fL [facility] MCH 31.7 28 - 34 pg [facility] MCHC 34.4 33 - 36 g/dL [facility] RDW 14.5 11.5 - 15.1 % [facility] PLATELETS 172 148 - 408 x10E3 [facility] MPV 8.5Comment: [facility] 7.4 - 10.6 [facility] ACCT#[id number], ,,,, CENTER [facility] Specimen Blood specimen (specimen) Performing Organization Address City/State/Zipcode Ph one Number INTERFACE SYSTEM [facility] ALYSA IA# [id number] Milly RIOJAS [id number] [facility] [address] [place] [address] * COMPREHENSIVE METABOLIC PANEL (06/01/2008 6:00 AM INFRASTRUCTURE DIRECTOR) GLUCOSE 96 70 - 110 mg/dl [facility] BUN 13.0 7 - 20 mg/dl [facility] CREATININE 0.80 0.6 - 1.0 mg/dl [facility] BUN/CREAT RATIO 16.3 10 - 20 [facility] GFR 86 >90 ml/min [facility] SODIUM 141 135 - 145 mmol/L [facility] POTASSIUM 3.9 3.3 - 4.8 mmol/L [facility] CHLORIDE 108 (H) 98 - 107 mmol/L [facility] CO2 26.7 22 - 31 mmol/L [facility] ANION GAP 10 4 - 20 [facility] CALCIUM 8.7 8.5 - 10.1 mg/dl [facility] ALBUMIN 2.9 (L) 3.4 - 5.0 g/dl [facility] TOTAL PROTEIN 6.4 6.4 - 8.2 g/dl [facility] GLOBULIN (CALC) 3.5 [facility] ALBUMIN/GLOBULI 0.8 [facility] N RATIO [place] [facility] BILIRUBIN TOTAL 0.2 <1.1 mg/dl [facility] ALKALINE 114 50 - 136 IU/L [facility] PHOSPHATASE [place] [facility] AST 10 10 - 40 IU/L [facility] ALT 33Comment: EUGENENupurGERACLEMENTE 25 - 70 IU/L [facility] ACCT#[id number], ,,,, [facility] Specimen Blood specimen (specimen) Performing Organization Address City/[facility] Ph one Number INTERFACE SYSTEM [facility] CLIA# [id number] Milly RIOJAS [id number] [facility] [address] [place] [address] * POC GLUCOSE (05/31/2008 8:51 PM INFRASTRUCTURE DIRECTOR) POC GLUCOSE 132 (H)Comment: Jim Rain 70 - 110 mg/dl [facility] Point of Care [facility],,, [facility] Specimen Performing Organization Address [facility] Ph one Number INTERFACE SYSTEM [facility] CLIA# [id number] Milly RIOJAS S [address] [facility] [address] [place] [address] * POC GLUCOSE (05/31/2008 4:39 PM INFRASTRUCTURE DIRECTOR) POC GLUCOSE 108Comment: Jim Rain Terry, 70 - 110 mg/dl [facility], Point of Care [facility],,,, [facility] Specimen Capillary blood specimen (specimen) Performing Organization Address City/[facility] Ph one Number INTERFACE SYSTEM [facility] CLIA# [id number] Milly RIOJAS S [address] [facility] [address] [place] [address] * POC GLUCOSE (05/31/2008 10:55 AM INFRASTRUCTURE DIRECTOR) POC GLUCOSE 99Comment: Jim Rain Terry, 70 - 110 mg/dl [facility] Point of [facility],,,, [facility] Specimen Capillary blood specimen (specimen) Performing Organization Address [facility] Ph one Number INTERFACE [facility] CLIA# [id number] Milly RIOJAS S [address] [facility] [address] [place] [address] * POC GLUCOSE (05/31/2008 8:42 AM INFRASTRUCTURE DIRECTOR) POC GLUCOSE 112 (H)Comment: [facility] 70 - 110 mg/dl [facility] Point of Care [facility] Jeff,,,, [facility] Specimen Capillary blood specimen (specimen) Performing Organization Address [facility] Ph one Number [facility] CLIA# [id number] Milly RIOJAS S [address] [facility] [address] [place] [address] * PROTIME-INR (05/31/2008 6:45 AM INFRASTRUCTURE DIRECTOR) PROTIME 19.8 (H) 9.5 - 11.5 Sec [facility] INR 1.96 (L)Comment: 2.0 - 3.0 [facility] ACCT#[id number], ,,,, [facility] Specimen Blood specimen (specimen) Performing Organization Address [facility] CLIA# [id number] [facility] Milly BRITTON S [address] [facility] [address] [place] [address] * XR CHEST PA OR AP (05/30/2008 10:34 PM INFRASTRUCTURE DIRECTOR) Specimen Impressions Performed At : No acute cardiopulmonary disease. Narrative Performed At PORTABLE CHEST: COMPARED TO PRIOR EXAM OF May 02. HISTORY: DYSPNEA. There is mild elevation of the right he midiaphragm unchanged from the prior exam. The cardiac silhouette an d pulmonary vascularity are normal. No infiltrates or masses seen. No pne umothorax. Procedure Note Donaldo Aleman MD - 06/01/2008 2:09 PM INFRASTRUCTURE DIRECTOR PORTABLE CHEST: COMPARED TO PRIOR EXAM OF May 02. HISTORY: DYSPNEA. There is mild elevation of the right hemidiaphragm unchanged from the prior exam. The cardiac silhouette and pulmonary vascularity are normal. No infiltrates or masses seen. No pneumothorax. IMPRESSION: No acute cardiopulmonary disease. * CBC WITH DIFFERENTIAL (05/30/2008 12:01 AM INFRASTRUCTURE DIRECTOR) WBC 10.84 (H) 3.0 - 10.4 x10E3 [facility] RBC 3.93 3.77 - 4.97 x10E6 [facility] HEMOGLOBIN 12.5 11.9 - 15.0 g/dL [facility] HEMATOCRIT 36.7 34.4 - 43.6 % [facility] MCV 93.5 79 - 100 fL [facility] MCH 31.9 28 - 34 pg [facility] MCHC 34.1 33 - 36 g/dL [facility] RDW 14.3 11.5 - 15.1 % [facility] PLATELETS 200 148 - 408 x10E3 [facility] MPV 9.7 7.4 - 10.6 fL [facility] NEUTROPHILS 75.0 (H) 43 - 73 % [facility] LYMPHOCYTES 16.9 (L) 19 - 47 % [facility] MONOCYTES 5.8 3 - 9 % [facility] EOSINOPHILS 2.1 0 - 6 % [facility] BASOPHILS 0.2 0 - 1.2 % [facility] NEUTROPHIL 8.13 (H) 1.3 - 7.6 x10E3 [facility] AL[facility] LYMPHOCYTE 1.84 0.6 - 4.9 x10E3 [facility] AL[facility] MONOCYTE 0.63 0.1 - 0.9 x10E3 [facility] EOSINOPHIL 0.23 (H) 0.0 - 0.2 x10E3 [facility] BASOPHILS 0.02Comment: [facility] 0 - 0.1 x10E3 [facility] ACCT#[id number], ,,,, CENTER AL[facility] Specimen Blood specimen (specimen) Performing Organization Address City/State/Zipcode Ph one Number INTERFACE SYSTEM [facility] ALYSA [place]# [id number] Milly RIOJAS [address] [facility] [address] [facility] * COMPREHENSIVE METABOLIC PANEL (05/30/2008 12:01 AM INFRASTRUCTURE DIRECTOR) GLUCOSE 157 (H) 70 - 110 mg/dl [facility] BUN 14.0 7 - 20 mg/dl [facility] CREATININE 1.00 0.6 - 1.0 mg/dl [facility] BUN/CREAT RATIO 14.0 10 - 20 [facility] GFR 67 >90 ml/min [facility] SODIUM 139 135 - 145 mmol/L [facility] POTASSIUM 3.6 3.3 - 4.8 mmol/L [facility] CHLORIDE 107 98 - 107 mmol/L [facility] CO2 27.3 22 - 31 mmol/L [facility] ANION GAP 8 4 - 20 [facility] CALCIUM 8.3 (L) 8.5 - 10.1 mg/dl [facility] ALBUMIN 3.2 (L) 3.4 - 5.0 g/dl [facility] TOTAL PROTEIN 6.9 6.4 - 8.2 g/dl [facility] GLOBULIN (CALC) 3.7 [facility] ALBUMIN/GLOBULI 0.9 [facility] N RATIO [facility] BILIRUBIN TOTAL 0.2 <1.1 mg/dl [facility] ALKALINE 127 50 - 136 IU/L [facility] PHOSPHATASE [facility] AST 9 (L) 10 - 40 IU/L [facility] ALT 35Comment: [facility] 25 - 70 IU/L 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 documented in this encounter Administered Medications Action Date Dose Rate Site Medication Order MAR Action 06/01/2008 10:42 AM INFRASTRUCTURE DIRECTOR 3 mL albuterol-ipratropium (DUONEB) 0.5-2.5 Given mg/3 mL inhalation solution 3 mL 3 mL, Inhalation, EVERY 4 HOURS RESPIRATORY, First dose on 05/30/08 at 2300, Until Discontinued, Routine 3 mL Given 06/01/2008 7:01 AM INFRASTRUCTURE DIRECTOR 3 mL Given 06/01/2008 1:39 AM INFRASTRUCTURE DIRECTOR 06/01/2008 7:50 AM INFRASTRUCTURE DIRECTOR 20 mg amphetamine-dextroamphetamine SR 24 hour Given (ADDERALL XR) capsule 20 mg 20 mg, Oral, DAILY EARLY, First dose on 05/30/08 at 2300, Until Discontinued, Routine 20 mg Given 05/31/2008 10:27 AM INFRASTRUCTURE DIRECTOR 05/31/2008 8:38 PM INFRASTRUCTURE DIRECTOR 10 mg baclofen (LIORESAL) tablet 10 mg Given 10 mg, Oral, THREE TIMES DAILY PRN, Starting 05/30/08 at 2251, Until Mo n 06/01/08 at 1415, Pain, Routine 10 mg Given 05/31/2008 2:09 PM INFRASTRUCTURE DIRECTOR 10 mg Given 05/31/2008 10:56 AM INFRASTRUCTURE DIRECTOR 06/01/2008 8:03 AM INFRASTRUCTURE DIRECTOR 250 mg cefUROXime axetil (CEFTIN) tablet 250 mg Given 250 mg, Oral, EVERY 12 HOURS (BlD), First dose on 05/30/08 at 2300, Until Discontinued, Routine 250 mg Given 05/31/2008 8:40 PM INFRASTRUCTURE DIRECTOR 250 mg Given 05/31/2008 8:09 AM INFRASTRUCTURE DIRECTOR 06/01/2008 8:03 AM INFRASTRUCTURE DIRECTOR 40 mg citalopram (CELEXA) tablet 40 mg Given 40 mg, Oral, DAILY, First dose on 05/30/08 at 2300, Until Discontinued, Routine 40 mg Given 05/31/2008 8:09 AM INFRASTRUCTURE DIRECTOR 40 mg Given 05/31/2008 12:08 AM INFRASTRUCTURE DIRECTOR 05/31/2008 10:56 AM INFRASTRUCTURE DIRECTOR 10 mg cyclobenzaprine (FLEXERIL) tablet 10 mg Given 10 mg, Oral, THREE TIMES DAILY PRN, Starting 05/30/08 at 2251, Until Mo n 06/01/08 at 1415, Spasm, Routine 06/01/2008 8:02 AM INFRASTRUCTURE DIRECTOR 500 mg divalproex delayed release (DEPAKOTE) Given tablet 500 mg 500 mg, Oral, TWO TIMES DAILY, First dose on 05/30/08 at 2300, Until Discontinued, Routine 500 mg Given 05/31/2008 8:38 PM INFRASTRUCTURE DIRECTOR 500 mg Given 05/31/2008 8:09 AM INFRASTRUCTURE DIRECTOR 06/01/2008 8:03 AM INFRASTRUCTURE DIRECTOR 60 mg duloxetine (CYMBALTA) capsule 60 mg Given 60 mg, Oral, DAILY, First dose on 05/30/08 at 2300, Until Discontinued, Routine 60 mg Given 05/31/2008 8:09 AM INFRASTRUCTURE DIRECTOR 60 mg Given 05/31/2008 12:09 AM INFRASTRUCTURE DIRECTOR 06/01/2008 9:58 AM INFRASTRUCTURE DIRECTOR 110 mg Abdomen, Right Upper Quadrant enoxaparin (LOVENOX) 300 mg/3 mL Given injection 110 mg 110 mg, subCUT, EVERY 12 HOURS (BlD), First dose on 05/31/08 at 1000, Until Discontinued, Routine, ~~~HIGH ALERT MEDICATION~~~Sent by Pharmacy, 110 mg Abdomen, Left Lower Quadrant Given 05/31/2008 10:00 PM INFRASTRUCTURE DIRECTOR 110 mg Abdomen, Right Upper Quadrant Given 05/31/2008 9:35 AM INFRASTRUCTURE DIRECTOR 05/31/2008 12:09 AM INFRASTRUCTURE DIRECTOR 130 mg Abdomen, Left Lower Quadrant enoxaparin (LOVENOX) injection 130 mg Given 130 mg (1 mg/kg 127 kg), subCUT, EVERY 12 HOURS (BlD), First dose on 05/30/08 at 2315, Until Discontinued, Routine 05/31/2008 12:11 AM INFRASTRUCTURE DIRECTOR 30 mg Abdomen, Left Lower Quadrant ENOXAPARIN 30 MG/0.3 ML SUB-Q SYRINGE Given 1 dose, Starting 05/30/08 at 2359, Until 05/31/08 at 0011, [place] SANJAYLL: Cabinet Override, 06/01/2008 8:03 AM INFRASTRUCTURE DIRECTOR 1 Capsule fish oil-omega-3 fatty acids capsule 1 Given Cap 1 Capsule, Oral, THREE TIMES DAILY, First dose on 05/31/08 at 0900, Until Discontinued, Routine, Sub for [place], 1 Capsule Given 05/31/2008 8:40 PM INFRASTRUCTURE DIRECTOR 1 Capsule Given 05/31/2008 2:08 PM INFRASTRUCTURE DIRECTOR 06/01/2008 8:02 AM INFRASTRUCTURE DIRECTOR 2 Sprays fluticasone (FLONASE) nasal spray 2 Given Huson 2 Huson, Both Nostrils, DAILY, First dose on 05/31/08 at 0900, Until Discontinued, Routine 2 Sprays Given 05/31/2008 8:45 AM INFRASTRUCTURE DIRECTOR 06/01/2008 8:02 AM INFRASTRUCTURE DIRECTOR 1 Puff fluticasone-salmeterol (ADVAIR DISKUS) Given 500-50 mcg/Dose disk inhaler 1 Puff 1 Puff, Inhalation, EVERY 12 HOURS RESPIRATORY, First dose on 05/30/08 at 2300, Until Discontinued, Routine 1 Puff Given 05/31/2008 8:41 PM INFRASTRUCTURE DIRECTOR 1 Puff Given 05/31/2008 9:34 AM INFRASTRUCTURE DIRECTOR 06/01/2008 8:03 AM INFRASTRUCTURE DIRECTOR 40 mg furosemide (LASIX) tablet 40 mg Given 40 mg, Oral, DAILY, First dose on 05/30/08 at 2300, Until Discontinued, Routine 40 mg Given 05/31/2008 8:09 AM INFRASTRUCTURE DIRECTOR 05/31/2008 2:09 PM INFRASTRUCTURE DIRECTOR 300 mg gabapentin (NEURONTIN) capsule 300 mg Given 300 mg, Oral, THREE TIMES DAILY, First dose on 05/30/08 at 2300, Until Discontinued, Routine 300 mg Given 05/31/2008 8:09 AM INFRASTRUCTURE DIRECTOR 300 mg Given 05/31/2008 12:12 AM INFRASTRUCTURE DIRECTOR 05/31/2008 2:50 PM INFRASTRUCTURE DIRECTOR 600 mg gabapentin (NEURONTIN) capsule 600 mg Given 600 mg, Oral, ONE TIME ONLY, 1 dose, Martel n 05/31/08 at 1500, Routine 06/01/2008 8:02 AM INFRASTRUCTURE DIRECTOR 900 mg gabapentin (NEURONTIN) capsule 900 mg Given 900 mg, Oral, THREE TIMES DAILY, First dose (after last modification) on 05/31/08 at 2100, Until Discontinued, Routine 900 mg Given 05/31/2008 8:38 PM INFRASTRUCTURE DIRECTOR 06/01/2008 7:51 AM INFRASTRUCTURE DIRECTOR 800 mg ibuprofen (MOTRIN) tablet 800 mg Given 800 mg, Oral, DAILY, First dose on 05/31/08 at 0900, Until Discontinued, Routine 800 mg Given 05/31/2008 8:45 AM INFRASTRUCTURE DIRECTOR 06/01/2008 8:03 AM INFRASTRUCTURE DIRECTOR 10 mg methadone (DOLOPHINE) tablet 10 mg Given 10 mg, Oral, THREE TIMES DAILY, First dose on 05/30/08 at 2300, Until Discontinued, Routine 10 mg Given 05/31/2008 8:40 PM INFRASTRUCTURE DIRECTOR 10 mg Given 05/31/2008 2:09 PM INFRASTRUCTURE DIRECTOR 05/31/2008 8:40 PM INFRASTRUCTURE DIRECTOR 5 mg olanzapine (ZYPREXA) tablet 5 mg Given 5 mg, Oral, DAILY AT BEDTIME, First dos e on 05/30/08 at 2300, Until Discontinued, Routine 5 mg Given 05/31/2008 12:13 AM INFRASTRUCTURE DIRECTOR 05/30/2008 11:00 PM INFRASTRUCTURE DIRECTOR 2 L/min Oxygen-Air Delivery Systems Leisa 2 L/min Given 2 L/min, Inhalation, DAILY AT BEDTIME, First dose on 05/30/08 at 2300, Until Discontinued 06/01/2008 8:03 AM INFRASTRUCTURE DIRECTOR 200 mg phenytoin (DILANTIN) capsule 200 mg Given 200 mg, Oral, TWO TIMES DAILY, First dose on 05/30/08 at 2300, Until Discontinued, Routine 200 mg Given 05/31/2008 8:40 PM INFRASTRUCTURE DIRECTOR 200 mg Given 05/31/2008 8:09 AM INFRASTRUCTURE DIRECTOR 05/30/2008 9:30 PM INFRASTRUCTURE DIRECTOR mL SODIUM CHLORIDE 0.9 % SYRINGE Admin by 1 dose, Starting 05/30/08 at 2116, Another Until 05/30/08 at 2130, Rosemarie Clinician SANJAYLL: Cabinet Override, (Comment) 05/31/2008 8:40 PM INFRASTRUCTURE DIRECTOR 100 mg topiramate (TOPAMAX) tablet 100 mg Given 100 mg, Oral, DAILY AT BEDTIME, First dose on 05/30/08 at 2300, Until Discontinued, Routine 100 mg Given 05/31/2008 12:13 AM INFRASTRUCTURE DIRECTOR 05/31/2008 8:39 PM INFRASTRUCTURE DIRECTOR 50 mg topiramate (TOPAMAX) tablet 50 mg Given 50 mg, Oral, DAILY AT BEDTIME, First dose on 05/30/08 at 2300, Until Discontinued, Routine 50 mg Given 05/31/2008 12:13 AM INFRASTRUCTURE DIRECTOR 05/31/2008 4:42 PM INFRASTRUCTURE DIRECTOR 5 mg warfarin (COUMADIN) tablet 5 mg Given 5 mg, Oral, DAILY LATE, First dose (after last modification) on 05/31/08 at 1700, Until Discontinued, Routine 05/31/2008 12:14 AM INFRASTRUCTURE DIRECTOR 7.5 mg warfarin (COUMADIN) tablet 7.5 mg Given 7.5 mg, Oral, DAILY LATE, First dose on 05/30/08 at 2300, Until Discontinued, Routine documented in this encounter
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
--- OUTSIDE RECORDS SUMMARY | 2019-10-21 18:48 | XMS REPORT | Encounter Summary ---
Author Author [facility] Organization [facility] Address Unknown Phone Unavailable Care Team Providers Care Ruching Machine Operator Name Role Phone PCP Unavailable Reason for Visit * Reason Comments Headache groggy, hx of sinusitis and otitis within the last month Bladder Incontinence x 1 wk Encounter Details Care Team Description Date Type Department Jr Yemi Nunn, [address] [place] [address] Depressed Level of Consciousness; Cephalgia 04/08/2008 Emergency [facility] Emergency Department [address] [id number] Social History Date Tobacco Use Types Packs/Day [...] Signs Reading Time Taken Comments Vital Sign 122/82 04/08/2008 7:30 PM APPLICATION INFRASTRUCTURE ENGINEER Blood Pressure 85 04/08/2008 7:30 PM APPLICATION INFRASTRUCTURE ENGINEER Pulse 36.5 C (97.7 F) 04/08/2008 5:01 PM APPLICATION INFRASTRUCTURE ENGINEER Temperature 16 04/08/2008 7:30 PM APPLICATION INFRASTRUCTURE ENGINEER Respiratory Rate 97% 04/08/2008 7:30 PM APPLICATION INFRASTRUCTURE ENGINEER Oxygen Saturation - - Inhaled Oxygen Concentration 117.9 kg (260 lb) 04/08/2008 5:01 PM APPLICATION INFRASTRUCTURE ENGINEER Weight - - Height - - Body Mass Index documented in this encounter Discharge Instructions * Instructions* Jr Yemi Nunn, - 04/08/2008 * Attachments The following attachments cannot be sent through Care Everywhere.* Seizure, Adult documented in this encounter Medications at Time [...] Notes * Aok Scanning, Ari Physician - 04/14/2008 1:53 PM APPLICATION INFRASTRUCTURE ENGINEER Associated Order(s): TELEMETRY REPORT; TELEMETRY REPORT * Aok Scanning, [facility] Physician - 04/10/2008 1:13 PM APPLICATION INFRASTRUCTURE ENGINEER Associated Order(s): IMAGING REPORT; IMAGING REPORT documented in this encounter ED Notes * Matt Scanning, Ari Physician - 04/10/2008 2:04 PM APPLICATION INFRASTRUCTURE ENGINEER * Sarita Pearl RN - 04/08/2008 9:20 PM APPLICATION INFRASTRUCTURE ENGINEER Silver colored owl ring found on floor by bed after patient left ER. Patient ph oned at home and confirms this is her ring. Ring placed in baggy with name stic ker up front with Communications at this time. Patient will picker tender helper ring tomorr ow. ICATION INFRASTRUCTURE ENGINEER * Sarita Pearl RN - 04/08/2008 7:46 PM APPLICATION INFRASTRUCTURE ENGINEER IV saline lock and dickey catheter d/c'd at this time. ICATION INFRASTRUCTURE ENGINEER * Sarita Pearl RN - 04/08/2008 7:24 PM APPLICATION INFRASTRUCTURE ENGINEER Dr Nunn back to room at this time. ICATION INFRASTRUCTURE ENGINEER * Sarita Pearl RN - 04/08/2008 7:23 PM APPLICATION INFRASTRUCTURE ENGINEER Patient does not wish to stay in the hospital tonight and has asked Dr. Nunn t o come back in and speak with her. Dr Nunn aware. ICATION INFRASTRUCTURE ENGINEER * Sarita Pearl RN - 04/08/2008 6:54 PM APPLICATION INFRASTRUCTURE ENGINEER Portable chest x ray at this time. ICATION INFRASTRUCTURE ENGINEER * Sarita Pearl RN - 04/08/2008 6:43 PM APPLICATION INFRASTRUCTURE ENGINEER Dr Nunn to room to review results with patient and family. ICATION INFRASTRUCTURE ENGINEER * Jr Yemi Nunn DO - 04/08/2008 6:29 PM APPLICATION INFRASTRUCTURE ENGINEER HISTORY OF PRESENT ILLNESS Aleydakalyan Feldmanon, a 37 y.o. female presents to the ED with a Chief Complaint o f Headache and Bladder Incontinence Patient is a 37 y.o. female presenting with headaches and bladder incontinence. The history is provided by the patient and a significant other. The history is l imited by the condition of the patient. Financial Sales Professional Used: Have to almos t continously stimulate the patient to keep her awake. Headache This is a recurrent problem. The current episode started 6 to 12 hours ago. The problem occurs constantly. The problem has not changed since onset. The headache is associated with nothing. The pain is located in the frontal region. The pain quality is described as throbbing. The pain is moderate. The pain does not radi ate. Associated symptoms include malaise/fatigue and nausea. Pertinent negatives include no fever and no vomiting. She has tried nothing for the symptoms. Bladder Incontinence This is a new problem. 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 Associated symptoms include hea daches. Nothing worsens the symptoms. Nothing relieves the symptoms. She has tri ed nothing for the symptoms. REVIEW OF SYSTEMS Review of Systems Constitutional: Positive for malaise/fatigue. Negative for fever. HENT: Sig other gives hx of recent refractory sinus infection. Eyes: Negative. Respiratory: Negative. Cardiovascular: Negative. Gastrointestinal: Positive for nausea. Negative for vomiting. 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 Musculoskeletal: Positive for joint pain. Right Shoulder. Also hx of chronic back pain & sciatica. Skin: Negative. Neurological: Positive for headaches. Hypersomnolent. Endo/Heme/Allergies: Negative. Psychiatric/Behavioral: Positive for substance abuse. Suicidal ideas: Past histo ry of. PAST MEDICAL HISTORY REVIEWED Past Medical History [...] by inhalation daily at [facility]. clonazePAM (KLONOPIN) 2 mg Oral [...] PO Take by mouth. 5 mg Tues, Thurs, Sat, Sun & 10 mg Mon, Wed, Fri NEURONTIN PO Take 900 mg by mouth every 12 hours. FUROSEMIDE 20 mg Oral Tab Take 40 mg by mouth daily. DUONEB IN Take by inhalation every 6 hours. ADVAIR DISKUS 500-50 mcg/Dose Inhalation DsDv Take 1 Puff by inhalation 2 ti mes daily. PHYSICAL EXAM Initial Vitals BP 04/08/08 1701 126/41 mmHg Pulse 04/08/08 1701 81 Resp 04/08/08 1701 14 Temp 04/08/08 1701 97.7 F (36.5 C) Temp src 04/08/08 1701 Oral SpO2 04/08/08 1701 93 % BP 111/54 | Pulse 72 | Temp(Src) 97.7 F (36.5 C) (Oral) | Resp 15 | Wt 117.9 35 kg | SpO2 99% Physical Exam Nursing note and vitals reviewed. Constitutional: She appears well-developed and well-nourished. She appears ashley rgic. She is sleeping. She is easily aroused. No distress. HENT: Head: Normocephalic and atraumatic. Right Ear: External ear normal. Left Ear: External ear normal. Mouth/Throat: Oropharynx is clear and moist. Eyes: Extraocular motions are normal. Pupils are equal, round, and reactive to l ight. Neck: Normal range of motion. Neck supple. Cardiovascular: Normal rate, regular rhythm, normal heart sounds and intact dist al pulses. Pulmonary/Chest: Effort normal and breath sounds normal. No respiratory distress . Abdominal: Soft. Bowel sounds are normal. She exhibits no mass. No tenderness. S he has no guarding. Very obese. Musculoskeletal: She exhibits no edema and no tenderness. Neurological: She is easily aroused. She has normal reflexes. She appears lethar gic. No sensory deficit. She displays no seizure activity. GCS eye subscore is 4 . GCS motor subscore is 5. Skin: Skin is warm and dry. Psychiatric: Her speech is normal. She is slowed. She exhibits a depressed mood. MDM Coding Reviewed: nursing note and vitals Interpretation: labs and x-ray Consults: admitting MD DIAGNOSTICS LAB: Results for orders placed during the hospital encounter of 04/08/2008 (from the past 24 hour(s)) CBC WITH DIFFERENTIAL Component Value Range WBC 11.59 (*) 3.0-10.4 (x10E3) RBC 3.99 3.77-4.97 (x10E6) HEMOGLOBIN 13.0 11.9-15.0 (g/dL) HEMATOCRIT 36.8 34.4-43.6 (%) MCV 92.2 79-100 (fL) MCH 32.5 28-34 (pg) MCHC 35.3 33-36 (g/dL) RDW 13.3 11.5-15.1 (%) PLATELETS 229 148-408 (x10E3) MPV 7.9 7.4-10.6 (fL) NEUTROPHILS 80.5 (*) 43-73 (%) LYMPHOCYTES 14.1 (*) 19-47 (%) MONOCYTES 3.4 3-9 (%) EOSINOPHILS 1.8 0-6 (%) BASOPHILS 0.3 0-1.2 (%) NEUTROPHIL ABSOLUTE 9.32 (*) 1.3-7.6 (x10E3) LYMPHOCYTE ABSOLUTE 1.63 0.6-4.9 (x10E3) MONOCYTE ABSOLUTE 0.39 0.1-0.9 (x10E3) EOSINOPHIL ABSOLUTE 0.21 (*) 0.0-0.2 (x10E3) BASOPHILS ABSOLUTE 0.03 0-0.1 (x10E3) COMPREHENSIVE METABOLIC PANEL Component Value Range GLUCOSE 143 (*) 70-110 (mg/dl) BUN 14.0 7-20 (mg/dl) CREATININE 0.80 0.6-1.0 (mg/dl) BUN/CREAT RATIO 17.5 10-20 GFR 87 - (ml/min) SODIUM 139 135-145 (mmol/L) POTASSIUM 4.1 3.3-4.8 (mmol/L) CHLORIDE 105 98-107 (mmol/L) CO2 25.9 22-31 (mmol/L) ANION GAP 12 4-20 CALCIUM 8.8 8.5-10.1 (mg/dl) ALBUMIN 3.3 (*) 3.4-5.0 (g/dl) TOTAL PROTEIN 7.0 6.4-8.2 (g/dl) GLOBULIN (CALC) 3.7 - ALBUMIN/GLOBULIN RATIO 0.9 - BILIRUBIN TOTAL 0.2 - (mg/dl) ALKALINE PHOSPHATASE 130 50-136 (IU/L) AST 11 10-40 (IU/L) ALT 37 25-70 (IU/L) DRUG SCREEN, URINE Component Value Range AMPHETAMINE QUAL, URINE Negative - BARBITURATE QUAL, URINE Negative - BENZODIAZEPINE QUAL, URINE Negative - COCAINE METAB QUAL URINE Negative - CANNABINOIDS QUAL, URINE Negative - METHAMPHETAMINE QUAL, URINE Negative - METHADONE QUAL, URINE Positive (*) - OPIATE QUAL, URINE Negative - PROPOXYPHENE QUAL, URINE Negative - TRICYCLICS QUAL, URINE Negative - ETHANOL LEVEL Component Value Range ETHANOL LESS THAN 10 - (mg/dl) SALICYLATE LEVEL Component Value Range SALICYLATE LEVEL 4.5 2.8-20 (mg/dl) ACETAMINOPHEN LEVEL Component Value Range ACETAMINOPHEN LEVEL 0.0 (*) 10-30 (ug/ml) PROTIME-INR Component Value Range PROTIME 10.7 9.5-11.5 (Sec) INR 1.02 (*) 2.0-3.0 DIFFERENTIAL, MANUAL Component Value Range EOSINOPHILS 3 0-8 (%Manual) BANDS 3 0-22 (%Manual) NEUTROPHILS, SEG 73 (*) 30-68 (%Manual) LYMPHOCYTES 20 14-50 (%Manual) MONOCYTE 1 0-11 (%Manual) PLATELET EST. Normal - WBC ESTIMATE Increased - URINALYSIS Component Value RangeGLUCOSE UANegative - (mg/dl)BILIRUBIN UANegative - KETONES UANegative - (mg/dl)SPECIFIC GRAVITY UA1.010 - PH UA8.0 - PROT EIN UANegative - (mg/dl)UROBILINOGEN UA0.2 0.2-1.0 (EU/dl)NITRITE UANegati ve - BLOOD UANegative - LEUKOCYTE ESTERASE UANegative - WBC UANegative 0-5 (/HPF)RBC UANegative 0-5 (/HPF)EPITHELIAL CELLS, URINEocc sq - WBC CLUMPSNeg - (/LPF)CASTS, URINENeg - (/LPF)CRYSTALS, URINE2+ - CRYSTALS, URINEAmorph PO4 - BACTERIA UANEG - RADIOLOGY:CT HEAD WO CONTRAST (Results Pending)XR CHEST PA OR AP (Results Pending) Both studies are negative. EKG: PROCEDURES MEDICAL DECISION MAKING AND PLAN OF CARE CLINICAL IMPRESSIONEncounter DiagnosesCodeNamePrimary?Kflyemdab041.09ACDepres sed Level of Sdzlnxhebcgvr973.0FCephalgia CASE DISCUSSED PATIENT COUNSELING Diagnostics reviewed and questions answered. Diagnosis, treatment options and p radha of care discussed with understanding verbalized. DISPOSITION, EDUCATION AND MEDICATION RECONCILIATION Medications reconciled. See after visit summary for patient education on discha rged patients. After an extended period of time, the patient eventually woke up & was much more alert. Really suspect what happened is that she had a seizure & was incontinent of urine & when she got here she was post-ictal which would explain her relatively unremarkable work up & her course in the ER. She wishes to go home which I think is reasonable. I have encouraged her to contact her Neurologist @ & let him know what has transpired. She probably needs her seizure meds adjusted, added to, or changed. ICATION INFRASTRUCTURE ENGINEER * Sarita Pearl RN - 04/08/2008 6:14 PM APPLICATION INFRASTRUCTURE ENGINEER CT head is negative per radiology. ICATION INFRASTRUCTURE ENGINEER * Sarita Pearl RN - 04/08/2008 5:47 PM APPLICATION INFRASTRUCTURE ENGINEER Patient to CT at this time with Tech. ICATION INFRASTRUCTURE ENGINEER * Sarita Pearl RN - 04/08/2008 5:21 PM APPLICATION INFRASTRUCTURE ENGINEER Patient very groggy. With tactile cuing will wake up and respond fairly appropr iately. ICATION INFRASTRUCTURE ENGINEER documented in this encounter Miscellaneous Notes * Scanned Form - Aok Scanning, Amb Physician - 04/14/2008 1:54 PM APPLICATION INFRASTRUCTURE ENGINEER documented in this encounter Plan of Treatment Date/Time Name Type Priority Associated Diag noses 04/08/2008 5:24 PM APPLICATION INFRASTRUCTURE ENGINEER DIFFERENTIAL, MANUAL Lab Stat Order Schedule Name Type Priority Associated Diag noses For radiant use only for 1 Occurrences s tarting 04/08/2008 DIFFERENTIAL, MANUAL Lab Stat documented as of this encounter Procedures Comments Procedure Name Priority Date/Time Associated Diag nosis TELEMETRY REPORT 04/14/2008 1:59 PM APPLICATION INFRASTRUCTURE ENGINEER IMAGING REPORT 04/10/2008 1:34 PM APPLICATION INFRASTRUCTURE ENGINEER XR CHEST PA OR AP 1 VW Stat 04/08/2008 7:10 PM APPLICATION INFRASTRUCTURE ENGINEER CT HEAD WO CONTRAST Stat 04/08/2008 5:58 PM APPLICATION INFRASTRUCTURE ENGINEER DRUG SCREEN, URINE Stat 04/08/2008 5:25 PM APPLICATION INFRASTRUCTURE ENGINEER DIFFERENTIAL, MANUAL Stat 04/08/2008 5:15 PM APPLICATION INFRASTRUCTURE ENGINEER CBC WITH DIFFERENTIAL Stat 04/08/2008 5:15 PM APPLICATION INFRASTRUCTURE ENGINEER PROTIME-INR Stat 04/08/2008 5:15 PM APPLICATION INFRASTRUCTURE ENGINEER ETHANOL LEVEL Stat 04/08/2008 5:15 PM APPLICATION INFRASTRUCTURE ENGINEER ACETAMINOPHEN LEVEL Stat 04/08/2008 5:15 PM APPLICATION INFRASTRUCTURE ENGINEER SALICYLATE LEVEL Stat 04/08/2008 5:15 PM APPLICATION INFRASTRUCTURE ENGINEER COMPREHENSIVE METABOLIC Stat 04/08/2008 PANEL 5:15 PM APPLICATION INFRASTRUCTURE ENGINEER URINALYSIS W/REFLEX Stat 04/08/2008 MICROSCOPIC 12:01 AM APPLICATION INFRASTRUCTURE ENGINEER documented in this encounter Results * TELEMETRY REPORT (04/14/2008 1:59 PM APPLICATION INFRASTRUCTURE ENGINEER) Specimen Narrative Performed At This result has an attachment that is n ot available. Procedure Note 04/14/2008 1:53 PM APPLICATION INFRASTRUCTURE ENGINEER * IMAGING REPORT (04/10/2008 1:34 PM APPLICATION INFRASTRUCTURE ENGINEER) Specimen Narrative Performed At This result has an attachment that is n ot available. Procedure Note 04/10/2008 1:13 PM APPLICATION INFRASTRUCTURE ENGINEER * XR CHEST PA OR AP (04/08/2008 7:10 PM APPLICATION INFRASTRUCTURE ENGINEER) Specimen Impressions Performed At : No acute cardiopulmonary disease. CT HEAD: HISTORY: MENTAL STATUS CHANGES. There are multiple axial images at 5 mm intervals throughout the brain. No contrast given. The ventricles and sulci are within nor mal limits. There is no mass or mass effect seen. There is no intracr anial hemorrhage. There is no evidence of acute infarction. No pare nchymal abnormalities are seen. IMPRESSION: Normal noncontrast CT of the head. Narrative Performed At PORTABLE CHEST AND CT HEAD WITHOUT CONT RAST: PORTABLE CHEST: HISTORY: CONGESTION. The exam is compared to 03-02. The film is low lung volume in nature. The cardiac silhouette and pulmonary vascularity are within normal limits. No infiltrates or masses are seen. Procedure Note Donaldo Aleman MD - 04/09/2008 11:31 AM APPLICATION INFRASTRUCTURE ENGINEER PORTABLE CHEST AND CT HEAD WITHOUT CONTRAST: PORTABLE CHEST: HISTORY: CONGESTION. The exam is compared to 03-02. The film is low lung volume in nature. The cardiac silhouette and pulmonary vascularity are within normal limits. No infiltrates or masses are seen. IMPRESSION: No acute cardiopulmonary disease. CT HEAD: HISTORY: MENTAL STATUS CHANGES. There are multiple axial images at 5 mm intervals throughout the brain. No contrast given. The ventricles and sulci are within normal limits. There is no mass or mass effect seen. There is no intracranial hemorrhage. There is no evidence of acute infarction. No parenchymal abnormalities are seen. IMPRESSION: Normal noncontrast CT of the head. * CT HEAD WO CONTRAST (04/08/2008 5:58 PM APPLICATION INFRASTRUCTURE ENGINEER) Specimen Impressions Performed At : No acute cardiopulmonary disease. CT HEAD: HISTORY: MENTAL STATUS CHANGES. There are multiple axial images at 5 mm intervals throughout the brain. No contrast given. The ventricles and sulci are within nor mal limits. There is no mass or mass effect seen. There is no intracr anial hemorrhage. There is no evidence of acute infarction. No pare nchymal abnormalities are seen. IMPRESSION: Normal noncontrast CT of the head. Narrative Performed At PORTABLE CHEST AND CT HEAD WITHOUT CONT RAST: PORTABLE CHEST: HISTORY: CONGESTION. The exam is compared to 03-02. The film is low lung volume in nature. The cardiac silhouette and pulmonary vascularity are within normal limits. No infiltrates or masses are seen. Procedure [facility] MD - 04/09/2008 11:31 AM APPLICATION INFRASTRUCTURE ENGINEER PORTABLE CHEST AND CT HEAD WITHOUT CONTRAST: PORTABLE CHEST: HISTORY: CONGESTION. The exam is compared to 03-02. The film is low lung volume in nature. The cardiac silhouette and pulmonary vascularity are within normal limits. No infiltrates or masses are seen. IMPRESSION: No acute cardiopulmonary disease. CT HEAD: HISTORY: MENTAL STATUS CHANGES. There are multiple axial images at 5 mm intervals throughout the brain. No contrast given. The ventricles and sulci are within normal limits. There is no mass or mass effect seen. There is no intracranial hemorrhage. There is no evidence of acute infarction. No parenchymal abnormalities are seen. IMPRESSION: Normal noncontrast CT of the head. * DRUG SCREEN, URINE (04/08/2008 5:25 PM APPLICATION INFRASTRUCTURE ENGINEER) AMPHETAMINE Negative [facility] QUAL, URINE [facility] BARBITURATE Negative [facility] QUAL, URINE [facility] [place] [facility] BENZODIAZEPINE Negative [facility] QUAL, URINE [facility] [place] COCAINE METAB Negative [facility] QUAL URINE [facility] [place] CANNABINOIDS Negative [facility] QUAL, URINE [facility] [place] METHAMPHETAMINE Negative [facility] QUAL, URINE [facility] [place] METHADONE QUAL, Positive (H) [facility] URINE [facility] OPIATE QUAL, Negative [facility] URINE [facility] LAB PROPOXYPHENE Negative [facility] QUAL, URINE [facility] [place] [facility] TRICYCLICS Negative [facility], URINE Comment: [facility] Chain of Custody Handling was [facility] not performed on this specimen. This screen will not meet medical-legal requirements. CUTOFF LIMITS Amphetamines 1000 ng/ml Barbiturates 200 ng/ml Benzodiazepines 300 ng/ml Cocaine metabolite 300 ng/ml Marijuana metabolites 50 ng/ml Methamphetamine 1000 ng/ml Methadone 300 ng/ml Opiates 300 ng/ml Propoxyphene 300 ng/nl Tricyclic Antidepressants 300 ng/ml [facility] ACCT#[id number], ,,,, Specimen Urine specimen (specimen) Performing Organization Address [facility] one Number [facility]FACE [facility]ENTERIA# [id number] Milly RIOJAS [id number] [facility] [address] [place] [address] * DIFFERENTIAL, MANUAL (04/08/2008 5:15 PM APPLICATION INFRASTRUCTURE ENGINEER) EOSINOPHILS 3 0 - 8 %Manual [facility] BANDS 3 0 - 22 %Manual [facility] NEUTROPHILS, 73 (H) 30 - 68 %Manual [facility] LYMPHOCYTES 20 14 - 50 %Manual [facility] MONOCYTE 1 0 - 11 %Manual [facility] PLATELET EST. Normal [facility] WBC ESTIMATE IncreasedComment: [facility] ACCT#[id number], ,,,, [facility] Specimen Performing Organization Address City/[facility] Ph one Number INTERFACE SYSTEM [facility] CLIA# [id number] Milly RIOJAS [address] [facility] [address] [place] [address] * PROTIME-INR (04/08/2008 5:15 PM APPLICATION INFRASTRUCTURE ENGINEER) PROTIME 10.7 9.5 - 11.5 Sec [facility] INR 1.02 (L)Comment: 2.0 - 3.0 [facility] ACCT#[id number], ,,,, [facility] Specimen Blood specimen (specimen) Performing Organization Address [facility] one Number [facility] CLIA# [id number] Milly RIOJAS [id number] [facility] [address] [place] [address] * ACETAMINOPHEN LEVEL (04/08/2008 5:15 PM APPLICATION INFRASTRUCTURE ENGINEER) ACETAMINOPHEN 0.0 (L)Comment: 10 - 30 ug/ml [facility] ACCT#[id number], ,,,, [facility] Specimen Blood specimen (specimen) Performing Organization Address [facility] CLIA# [id number] Milly RIOJAS [address] * SALICYLATE LEVEL (04/08/2008 5:15 PM APPLICATION INFRASTRUCTURE ENGINEER) SALICYLATE 4.5Comment: [facility]ENTERRE[facility], [place] 2.8 - 20 mg/dl [facility] ACCT#[id number], ,,,, [facility] Specimen Blood specimen (specimen) Performing Organization Address [facility] one [facility] [place] CLIA# [id number] Milly RIOJAS [address] * ETHANOL LEVEL (04/08/2008 5:15 PM APPLICATION INFRASTRUCTURE ENGINEER) ETHANOL LESS THAN 10Comment: <10 mg/dl [facility] [place] ACCT#[id number], ,,,, [facility] Specimen Blood specimen (specimen) Performing Organization Address [facility] one [facility] [place] CLIA# [id number] Milly RIOJAS S [address] [facility] [address] [place] [address] * COMPREHENSIVE METABOLIC PANEL (04/08/2008 5:15 PM APPLICATION INFRASTRUCTURE ENGINEER) GLUCOSE 143 (H) 70 - 110 mg/dl [facility] BUN 14.0 7 - 20 mg/dl [facility] CREATININE 0.80 0.6 - 1.0 mg/dl [facility] BUN/CREAT RATIO 17.5 10 - 20 [facility] GFR 87 >90 ml/min [facility] SODIUM 139 135 - 145 mmol/L [facility] POTASSIUM 4.1 3.3 - 4.8 mmol/L [facility] CHLORIDE 105 98 - 107 mmol/L [facility] CO2 25.9 22 - 31 mmol/L [facility] ANION GAP 12 4 - 20 [facility] CALCIUM 8.8 8.5 - 10.1 mg/dl [facility] ALBUMIN 3.3 (L) 3.4 - 5.0 g/dl [facility] TOTAL PROTEIN 7.0 6.4 - 8.2 g/dl [facility] GLOBULIN (CALC) 3.7 [facility] ALBUMIN/GLOBULI 0.9 [facility] BILIRUBIN TOTAL 0.2 <1.1 mg/dl [facility] ALKALINE 130 50 - 136 IU/L [facility] PHOSPHATASE [facility] LAB AST 11 10 - 40 IU/L [facility] ALT 37Comment: [facility]ENTER[facility],[place] 25 - 70 IU/L [facility] ACCT#[id number], ,,,, [facility]ENTER [facility] Specimen Blood specimen (specimen) Performing Organization Address City/State/Zipcode Ph one Number INTERFACE SYSTEM [facility] CLIA# [id number] Milly RIOJAS S [address] [facility] [address] * CBC WITH DIFFERENTIAL (04/08/2008 5:15 PM APPLICATION INFRASTRUCTURE ENGINEER) WBC 11.59 (H) 3.0 - 10.4 x10E3 [facility] RBC 3.99 3.77 - 4.97 x10E6 [facility] HEMOGLOBIN 13.0 11.9 - 15.0 g/dL [facility] HEMATOCRIT 36.8 34.4 - 43.6 % [facility] MCV 92.2 79 - 100 fL [facility] MCH 32.5 28 - 34 pg [facility] MCHC 35.3 33 - 36 g/dL [facility] RDW 13.3 11.5 - 15.1 % [facility] [place] PLATELETS 229 148 - 408 x10E3 [facility] MPV 7.9 7.4 - 10.6 fL [facility] NEUTROPHILS 80.5 (H) 43 - 73 % [facility] LYMPHOCYTES 14.1 (L) 19 - 47 % [facility] MONOCYTES 3.4 3 - 9 % [facility] EOSINOPHILS 1.8 0 - 6 % [facility] BASOPHILS 0.3 0 - 1.2 % [facility] NEUTROPHIL 9.32 (H) 1.3 - 7.6 x10E3 [facility] LYMPHOCYTE 1.63 0.6 - 4.9 x10E3 [facility] [facility] MONOCYTE 0.39 0.1 - 0.9 x10E3 [facility] EOSINOPHIL 0.21 (H) 0.0 - 0.2 x10E3 [facility] BASOPHILS 0.03Comment: [facility] 0 - 0.1 x10E3 [facility] ACCT#[id number], ,,,, [facility] Specimen Blood specimen (specimen) Performing Organization Address City/State/Zipcode Ph one Number INTERFACE SYSTEM [facility] ALYSA GERARDO# [id number] Milly RIOJAS S [address] [facility] [address] [facility] [address] * URINALYSIS (04/08/2008 12:01 AM APPLICATION INFRASTRUCTURE ENGINEER) GLUCOSE UA Negative Negative mg/dl [facility] BILIRUBIN UA Negative Negative [facility] KETONES UA Negative Negative mg/dl [facility] SPECIFIC 1.010 [facility] UA [place] [facility] PH UA 8.0 [facility] PROTEIN UA Negative Negative mg/dl [facility] UROBILINOGEN UA 0.2 0.2 - 1.0 EU/dl [facility] NITRITE UA Negative Negative [facility] BLOOD UA Negative Negative [facility] LEUKOCYTE Negative Negative [facility] ESTERASE UA [place] [facility] WBC UA Negative 0 - 5 /HPF [facility] RBC UA Negative 0 - 5 /HPF [facility] EPITHELIAL occ sq [facility] CELLS, URINE [facility] WBC CLUMPS Neg Negative /LPF [facility] CASTS, URINE Neg 0-4 Hyaline /LPF [facility] CRYSTALS, URINE 2+ [facility] CRYSTALS, URINE Amorph PO4 [facility] BACTERIA UA NEGComment: [facility] NEG [facility] ACCT#[id number], ,,,, [facility] Specimen Urine, clean catch Performing Organization Address City/State/Zipcode Ph one Number INTERFACE SYSTEM [facility] ALYSA BENTONIA# [id number] Milly RIOJAS [address] [address] documented in this encounter Visit Diagnoses Diagnosis Depressed level of consciousness Other alteration of consciousness Cephalgia Headache documented in this encounter"
--- OUTSIDE RECORDS SUMMARY | 2019-10-21 18:48 | XMS REPORT | Encounter Summary ---
Author Author [facility] Organization [facility] Address Unknown Phone Unavailable Care Team Providers Care Application Developer Manager Name Role Phone PCP Unavailable Reason for Visit * Reason Comments Medication Problem Encounter Details Care Team Description Date Type Department Maurice Durbin MD [address] [place] [address] Medication Problem 04/17/[address] [facility] Primar y Care [place] [address] [place] [address] Social History Date Tobacco Use [...] * Telephone Encounter - Patt Malik - 04/17/2008 2:41 PM PLATER HELPER Ayden came into the clinic today with a question concerning her adderrall. She said that it was working at first, but now she tired again. I asked Dr. Durbin, he said that she could take 2 pills in the morning. I told this to the pt. ER HELPER documented in this encounter Plan of Treatment Not on filedocumented as of this encounter Visit Diagnoses Not on filedocumented in this encounter
--- OUTSIDE RECORDS SUMMARY | 2019-10-21 18:48 | XMS REPORT | Encounter Summary ---
Author Author [facility] Organization [facility] Address Unknown Phone Unavailable Care Team Providers Care Vegetable Ii Farmworker Name Role Phone PCP Unavailable Reason for Visit * Reason Comments Medication Refill Encounter Details Care Team Description Date Type Department Michelle Grullon, Gear Machine Operator General 04/22/2008 Refill [facility] Primar y Care [address] [address] Social History Date Tobacco Use [...] * Telephone Encounter - Pretty Grullon - 04/22/2008 5:02 PM CYBER SECURITY ANALYST Pt needs refill on ibuprofen 800mg #30. vo dr mayer this was okd x3 to [facility]. R SECURITY ANALYST documented in this encounter Plan of Treatment Not on filedocumented as of this encounter Visit Diagnoses Not on filedocumented in this encounter
--- OUTSIDE RECORDS SUMMARY | 2019-10-21 18:48 | XMS REPORT | Encounter Summary ---
Author Author [facility] Organization [facility] Address Unknown Phone Unavailable Care Team Providers Care Nuclear Reactor Engineer Name Role Phone PCP Unavailable Reason for Visit * Reason Comments Medication Refill Encounter Details Care Team Description Date Type Department Michelle Grullon, Ground Mixer 03/25/[address] [facility] Primar y Care [address] [address] Social History Date Tobacco Use [...] * Telephone Encounter - Pretty Grullon - 03/25/2008 2:30 PM CDT Pt needs refills on chantix maintenance pack. ok'd x2 to [facility]. documented in this encounter Plan of Treatment Not on filedocumented as of this encounter Visit Diagnoses Not on filedocumented in this encounter
--- OUTSIDE RECORDS SUMMARY | 2019-10-21 18:48 | XMS REPORT | Encounter Summary ---
Author Author [facility] Organization [facility] Address Unknown Phone Unavailable Care Team Providers Care Pipeline Dispatch Operator Name Role Phone PCP Unavailable Reason for Visit * Reason Comments Seizure Encounter Details Care Team Description Date Type Department Pseudoseizure 04/09/2008 Emergency [facility] Emergency Department [address] [phone] Social History Date Tobacco Use Types Packs/Day [...] Signs Reading Time Taken Comments Vital Sign 129/64 04/09/2008 1:20 PM WEB APPLICATIONS ADMINISTRATOR Blood Pressure 102 04/09/2008 1:20 PM WEB APPLICATIONS ADMINISTRATOR Pulse 36.2 C (97.2 F) 04/09/2008 1:20 PM WEB APPLICATIONS ADMINISTRATOR Temperature 12 04/09/2008 1:20 PM WEB APPLICATIONS ADMINISTRATOR Respiratory Rate 97% 04/09/2008 1:20 PM WEB APPLICATIONS ADMINISTRATOR Oxygen Saturation - - Inhaled Oxygen Concentration - - Weight - - Height - - Body Mass Index documented in this encounter Discharge Instructions * Instructions* Emy Bran ARNP - 04/09/2008 documented in this encounter Medications at Time of Discharge Start Date End Date Medication Sig Dispensed Refills 10/05/2007 Oxygen-Air Delivery Take 2 L/min 0 Systems Misc Leisa by inhalation daily at bedtime. 10/05/2007 ACCU-CHEK ACTIVE CARE by See Admin 0 Misc Kit Instructions route. Before meals, at bedtime, and as needed 06/30/2008 DILANTIN EXTENDED 100 mg Take 200 [...] Procedure Notes * Ari Stanley Physician - 04/15/2008 1:47 PM WEB APPLICATIONS ADMINISTRATOR Associated Order(s): ECG REPORT; ECG REPORT * Clifford Plata MD - 04/10/2008 9:35 AM WEB APPLICATIONS ADMINISTRATOR Associated Order(s): ECG REPORT; ECG REPORT [facility]. [address] [place] [address] EKG JERALD VELAZQUEZ EF06 [id number] 04/09/08 @ 1358 Rate 91, ND 0.14, QRS 0.07, axis +50 degrees. The rhythm is regular and of sinu s origin. Borderline Q waves are present in the inferior leads. T waves inverted to diphasic in V1 through V3. There is an RSR' configuration in V1. Compared wi th the previous tracing 03-02-08, there are no major differences. Diagnosis: 1) Normal sinus rhythm. 2) Nonspecific T wave changes. 3) Incomplete right bundle b ranch block pattern. Dictated by Kathie. Dictated by: EKG DD 04/10/08 TD 04/10/08/NEC EKG REPORT # [id number] ORDER # APPLICATIONS ADMINISTRATOR documented in this encounter ED Notes * Ari Stanley Physician - 04/11/2008 10:15 AM WEB APPLICATIONS ADMINISTRATOR * Lakeisha Abdi RN - 04/09/2008 3:24 PM WEB APPLICATIONS ADMINISTRATOR L.E: 1325: Pt stating that she needs to get out of here because she has an appo intment at 2:[address] Mayer. Pt does not appear to be in any postictal sta te. APPLICATIONS ADMINISTRATOR * Sarita Pearl RN - 04/09/2008 3:17 PM WEB APPLICATIONS ADMINISTRATOR Saline lock d/c'd prior to patient discharge today from ER. APPLICATIONS ADMINISTRATOR * Emy Bran ARNP - 04/09/2008 1:30 PM WEB APPLICATIONS ADMINISTRATOR HISTORY OF PRESENT ILLNESS Jerald Velazquez, a 37 y.o. 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 Pt was suppose t o have appt dr mayer today at 230p. Had extensive workup done in ed last nigh t. Pt states her neurologist at [facility] placed her on depakote last month and she r an out of it recently prior to getting in to see dr mayer Patient is a 37 y.o. female presenting with seizures. The history is provided by the patient and the EMS personnel. Seizure This is a recurrent problem. The current episode started less than 1 hour ago. T he problem has been rapidly improving. There was 1 seizure. The most recent epis ode lasted 2 to 5 minutes. Associated symptoms include headaches. Pertinent nega tives include no chest pain, no cough, no nausea, no vomiting and no diarrhea. C haracteristics include rhythmic jerking. Characteristics do not include eye blin amisha, eye deviation, bowel incontinence, bladder incontinence, loss of conscious ness, bit tongue, apnea or cyanosis. witness by family, no post ictal state note d when ems arrived. no seizure activity noted by ems or ed staff The episode wa s witnessed. There was no sensation of an aura present. The seizures did not con tinue in the ED. REVIEW OF SYSTEMS Review of Systems Constitutional: Negative for fever and chills. HENT: Negative for congestion. Eyes: Positive for photophobia. Negative for double vision. Respiratory: Negative for apnea, cough and shortness of breath. Cardiovascular: Negative for chest pain, palpitations and cyanosis. Gastrointestinal: Negative for nausea, vomiting, abdominal pain and diarrhea. Genitourinary: Negative for bladder incontinence, dysuria, urgency and frequency . Neurological: Positive for tremors, seizures and headaches. Negative for sensory change, speech change, focal weakness and loss of consciousness. Psychiatric/Behavioral: The patient is not hyperactive. PAST MEDICAL HISTORY REVIEWED Past Medical History [...] Aloe vera, Tape and Doxycycline HOME MEDICATIONS DILANTIN EXTENDED 100 mg Oral Cap Take 200 mg by mouth 2 times daily. Hasn't been taking for the past 1 1/2 wks 04/09/08 DEPAKOTE 500 mg Oral TbEC Take 1 Tab by mouth 2 times daily. topiramate (TOPAMAX) 50 mg Oral Tab Take 1 Tab by mouth daily at bedtime. topiramate (TOPAMAX) 100 mg Oral Tab Take 1 Tab by mouth daily at bedtime. azithromycin (ZITHROMAX Z-LILIAN) 250 mg Oral Tab Take by mouth. Take 2 tabs t he first day and 1 tab days 2-5 CHANTIX PO Take by mouth. ZYPREXA 5 [...] every 6 hours as need ed.For anxiety LOVAZA 1 gram Oral Cap Take 1 Gram by mouth 3 times daily. ALBUTEROL IN Take 2 Puffs by inhalation every 4 hours as needed. COUMADIN PO Take by mouth. 5 mg Tu, , Sat, Sun & 10 mg Mon, Wed, Fri NEURONTIN PO Take 900 mg by mouth every 12 hours. FUROSEMIDE 20 mg Oral Tab Take 40 mg by mouth daily. DUONEB IN Take by inhalation every 6 hours. ADVAIR DISKUS 500-50 mcg/Dose Inhalation DsDv Take 1 Puff by inhalation 2 ti mes daily. benzonatate (TESSALON) 100 mg Oral Cap Take 1 Cap by mouth 3 times daily. ondansetron (ZOFRAN ODT) 4 mg Oral TbDL Take 1 Tab by mouth every 8 hours as needed for Other (See Comment). nausea or vomiting for 3 doses. Oxygen-Air Delivery Systems Misc Leisa Take 2 L/min by inhalation daily at be [facility]. ACCU-CHEK ACTIVE CARE Misc Kit by See Admin Instructions route. Before meals , at bedtime, and as needed PHYSICAL EXAM Initial Vitals BP 04/09/08 1320 129/64 mmHg Pulse 04/09/08 1320 102 Resp 04/09/08 1320 12 Temp 04/09/08 1320 97.2 F (36.2 C) Temp src 04/09/08 1320 Oral SpO2 04/09/08 1320 97 % BP 129/64 | Pulse 102 | Temp(Src) 97.2 F (36.2 C) (Oral) | Resp 12 | SpO2 97 % Physical Exam Constitutional: She is [...] Neurological: She is alert and oriented. She has normal strength. No cranial ner ve deficit or sensory deficit. GCS eye subscore is 4. GCS verbal subscore is 5. GCS motor subscore is 6. Skin: Skin is warm and dry. Psychiatric: Judgment and thought content normal. Her mood appears not anxious. Her affect is not angry, not labile and not inappropriate. Her speech is delayed . Her speech is not slurred. She is slowed. She is not aggressive, is not hypera ctive and not actively hallucinating. Cognition and memory are normal. She exhib its a depressed mood. She is communicative. Flat affect She is attentive. MDM Coding Reviewed: previous chart, nursing note and vitals Consults: primary care provider DIAGNOSTICS LAB: Results for orders placed during [...] EST. Normal - WBC ESTIMATE Increased - RADIOLOGY: EKG: PROCEDURES MEDICAL DECISION MAKING AND PLAN OF CARE CLINICAL IMPRESSION Encounter Diagnoses Code Name Primary? Qualifier 780.39CW Pseudoseizure CASE DISCUSSED PATIENT COUNSELING Diagnostics reviewed and questions answered. Diagnosis, treatment options and p radha of care discussed with understanding verbalized. DISPOSITION, EDUCATION AND MEDICATION RECONCILIATION Medications reconciled. See after visit summary for patient education on discha rged patients. APPLICATIONS ADMINISTRATOR * Lakeisha Abdi RN - 04/09/2008 1:24 PM WEB APPLICATIONS ADMINISTRATOR Pt seen in ER last evening for seizures. Has not been taking her seizure medica tion for the past 10 days of so, because she reportedly does not have the way to get to to see her neurologist for her Dilantin. Pt has appt with her PCP here today to get back on her Dilantin. Reportedly had 2 seizures at home, witnessed by family. No loss of bowel or moon dder with each episode. APPLICATIONS ADMINISTRATOR documented in this encounter Plan of Treatment Not on filedocumented as of this encounter Procedures Comments Procedure Name Priority Date/Time Associated Diag nosis ECG REPORT 04/15/2008 2:06 PM WEB APPLICATIONS ADMINISTRATOR documented in this encounter Results * ECG REPORT (04/15/2008 2:06 PM WEB APPLICATIONS ADMINISTRATOR) Specimen Narrative Performed At This result has an attachment that is n ot available. Procedure Note Clifford Plata MD - 04/10/2008 9:35 AM WEB APPLICATIONS ADMINISTRATOR [facility]. [address] [place] [address] EKG JERE VELAZQUEZRODRIGUEZ JAUN EF06 [id number] 04/09/08 @ 1358 Rate 91, ND 0.14, QRS 0.07, axis +50 degrees. The rhythm is regular and of sinus origin. Borderline Q waves are present in the inferior leads. T waves inverted to diphasic in V1 through V3. There is an RSR' configuration in V1. Compared with the previous tracing 03-02-08, there are no major differences. Diagnosis: 1) Normal sinus rhythm. 2) Nonspecific T wave changes. 3) Incomplete right bundle branch block pattern. Dictated by Sherly Dictated by: EKG DD 04/10/08 TD 04/10/08/NEC EKG REPORT # [id number] ORDER # Transcriptions 04/15/2008 1:47 PM WEB APPLICATIONS ADMINISTRATOR documented in this encounter Visit Diagnoses Diagnosis Pseudoseizure Other convulsions documented in this encounter"
--- OUTSIDE RECORDS SUMMARY | 2019-10-21 18:48 | XMS REPORT | Encounter Summary ---
Author Author [facility] Organization [facility] Address Unknown Phone Unavailable Care Team Providers Care Senior Attorney Name Role Phone PCP Unavailable Reason for Visit * Reason Comments Fatigue falling asleep all the time , is unable to function sometimes Anxiety Encounter Details Care Team Description Date Type Department Maurice Durbin MD [address] [place] [address] ADHD; Bipolar Disorder, Unspecified; Seizure Disorder 04/14/2008 Office Visit [facility] Primar y Care [place] [address] [place] [address] Social History Date Tobacco Use [...] Reading Time Taken Comments Vital Sign 114/72 04/14/2008 11:03 AM PLANNER INTERNSHIP Blood Pressure - - Pulse 37.3 C (99.1 F) 04/14/2008 11:03 AM PLANNER INTERNSHIP Temperature - - Respiratory Rate - - Oxygen Saturation - - Inhaled Oxygen Concentration 130.6 kg (288 lb) 04/14/2008 11:03 AM PLANNER INTERNSHIP Weight - - Height - - Body Mass Index documented in this encounter Progress Notes * Maurice Durbin MD - 04/15/2008 12:58 PM PLANNER INTERNSHIP HISTORY OF PRESENT ILLNESS Ayden Odom, a 37 y.o. female. HPI Comments: the patient was seen in the ER for seizures has been doing well on the depakote Fatigue This is a chronic problem. The current episode started more than 1 week ago. The problem occurs constantly. Pertinent negatives include no chest pain, no abdomi nal pain, no headaches and no shortness of breath. Anxiety This is a new problem. The current episode started more than 1 week ago. The pro blem occurs constantly. The problem has not changed since onset. Pertinent negat sharan include no chest pain, no abdominal pain, no headaches and no shortness of breath. Nothing worsens the symptoms. REVIEW OF SYSTEMS Review of Systems Constitutional: Negative for fever, chills and malaise/fatigue. HENT: Negative for ear pain, congestion and sore throat. Eyes: Negative for blurred vision and double vision. Respiratory: Negative for cough, sputum production and shortness of breath. Cardiovascular: Negative for chest pain. Gastrointestinal: Negative for nausea, vomiting, abdominal pain and diarrhea. Skin: Negative for rash. Neurological: Negative for headaches. PHYSICAL EXAM BP 114/72 | Temp(Src) 99.1 F (37.3 C) (Tympanic) | Wt 288 lb (130.636 kg) Physical Exam Cardiovascular: Normal rate, regular rhythm, normal heart sounds and intact dist al pulses. Pulmonary/Chest: Effort normal and breath sounds normal. Abdominal: Soft. Bowel sounds are normal. ASSESSMENT and PLAN: Encounter Diagnoses Code Name Primary? Qualifier 314.01AL ADHD Plan: AMPHETAMINE-DEXTROAMPHETAMINE SR 10 MG 24 HR CAP 296.80 Bipolar Disorder, Unspecified 345.90DQ Seizure Disorder Plan: VALPROIC ACID LEVEL, TOTAL NER INTERNSHIP documented in this encounter Plan of Treatment Not on filedocumented as of this encounter Visit Diagnoses Diagnosis ADHD Attention deficit disorder with hyperac tivity Bipolar disorder, unspecified Seizure disorder Unspecified epilepsy without mention of intractable epilepsy documented in this encounter"
--- OUTSIDE RECORDS SUMMARY | 2019-10-21 18:48 | XMS REPORT | Encounter Summary ---
Author Author [facility] Organization [facility] Address Unknown Phone Unavailable Care Team Providers Care Magazine Feeder Name Role Phone PCP Unavailable Encounter Details Care Team Description Date Type Department Maurice Durbin MD [address] [place] [address] 04/06/2008 Abstract [facility] Primar y Care [place] [address] [place] [address] Social History Date Tobacco Use [...]
--- OUTSIDE RECORDS SUMMARY | 2019-10-21 18:48 | XMS REPORT | Encounter Summary ---
Author Author [facility] Organization [facility] Address Unknown Phone Unavailable Care Team Providers Care Vest Maker Name Role Phone PCP Unavailable Reason for Visit * Reason Comments Medication Refill Encounter Details Care Team Description Date Type Department Michelle Grullon, Planning Management It Specialist 04/02/2008 Refill [facility] Primia y [address] [address] Social History Date Tobacco Use [...]
--- OUTSIDE RECORDS SUMMARY | 2019-10-21 18:48 | XMS REPORT | Encounter Summary ---
Author Author [facility] Organization [facility] Address Unknown Phone Unavailable Care Team Providers Care It Audit Manager Name Role Phone PCP Unavailable Reason for Visit * Reason Comments Medication Refill med refill Encounter Details Care Team Description Date Type Department Maurice Durbin MD [address] [place] [address] ADHD (Primary Dx); Unspecified Asthma 04/22/2008 Office Visit [facility] Primar y Care [place] [address] [place] [address] Social History Date Tobacco [...] Signs Reading Time Taken Comments Vital Sign 88/60 04/22/2008 1:35 PM REFRIGERATOR CABINETMAKER Blood Pressure 70 04/22/2008 1:35 PM REFRIGERATOR CABINETMAKER Pulse 36.9 C (98.4 F) 04/22/2008 1:35 PM REFRIGERATOR CABINETMAKER Temperature - - Respiratory Rate - - Oxygen Saturation - - Inhaled Oxygen Concentration - - Weight - - Height - - Body Mass Index documented in this encounter Progress Notes * Maurice Durbin MD - 04/22/2008 2:15 PM REFRIGERATOR CABINETMAKER Ayden Odom is a 37 y.o. female in today for a follow up on adhd has noti chiqui an improvement since increasing the dose last week. Overall the medications have been working without any problems OBJECTIVE: Blood pressure 88/60, pulse 70, temperature 98.4 F (36.9 C), temperature delmer rce Tympanic. Physical Exam: General appearance: alert, in no distress Lungs: clear to auscultation bilaterally, normal respiratory effort Heart: regular rate and rhythm, S1, S2 normal, no murmur, click, rub or gallop Abdomen: Soft, non-tender. Bowel sounds normal. No masses, no organomegaly. ASSESSMENT: Encounter Diagnoses Name Primary? ADHD Yes Unspecified Asthma PLAN: Orders Placed This Encounter DISCONTD: Amphetamine-dextroamphetamine sr 10 mg 24 hr cap Amphetamine-dextroamphetamine sr 20 mg 24 hr cap IGERATOR CABINETMAKER documented in this encounter Plan of Treatment Not on filedocumented as of this encounter Visit Diagnoses Diagnosis ADHD - Primary Attention deficit disorder with hyperac tivity Unspecified asthma(493.90) Unspecified asthma documented in this encounter
--- OUTSIDE RECORDS SUMMARY | 2019-10-21 18:48 | XMS REPORT | Encounter Summary ---
Author Author [facility] Organization [facility] Address Unknown Phone Unavailable Care Team Providers Care Play Reader Name Role Phone PCP Unavailable Reason for Visit * Reason Comments Hip Pain reports can't lay on it, ro ll over. Reported metadone not helping with pain. Encounter Details Care Team Description Date Type Department Maurice Durbin MD [address] [place] [address] Back Pain (Primary Dx); Needs Flu Shot 04/01/[address] [facility] Primar y Care [place] [address] [place] [address] Social History Date Tobacco Use [...] Reading Time Taken Comments Vital Sign 100/60 04/01/2008 9:51 AM CDT Blood Pressure 74 04/01/2008 9:51 AM CDT Pulse 36.4 C (97.5 F) 04/01/2008 9:51 AM CDT Temperature - - Respiratory Rate - - Oxygen Saturation - - Inhaled Oxygen Concentration - - Weight - - Height - - Body Mass Index documented in this encounter Progress Notes * Maurice Durbin MD - 04/01/2008 1:04 PM CDT HISTORY OF PRESENT ILLNESS Ayden Odom, a 37 y.o. female. Hip Pain This is a chronic problem. The current episode started more than 1 week ago. The problem occurs constantly. The problem has not changed since onset. The pain is present in the right hip. The pain quality is described as aching. The pain is at a severity of 7/10. Pertinent negatives include no numbness, no limited range of motion, no stiffness, no tingling and no itching. The symptoms are worsened by standing and activity. She has tried nothing for the symptoms. There has been no history of trauma. Family history is significant for no rheumatoid arthritis and no gout. REVIEW OF SYSTEMS Review of Systems Constitutional: Negative for fever, chills and malaise/fatigue. HENT: Negative for ear pain, congestion and sore throat. Eyes: Negative for blurred vision and double vision. Respiratory: Negative for cough and sputum production. Gastrointestinal: Negative for nausea, vomiting, abdominal pain and diarrhea. Skin: Negative for rash and itching. Neurological: Negative for tingling, numbness and headaches. PHYSICAL EXAM BP 100/60 | Pulse 74 | Temp 97.5 F (36.4 C) Physical Exam Cardiovascular: Normal rate, regular rhythm, normal heart sounds and intact dist al pulses. Pulmonary/Chest: Effort normal and breath sounds normal. Abdominal: Soft. Bowel sounds are normal. Musculoskeletal: She exhibits tenderness (mild). ASSESSMENT and PLAN: Encounter Diagnoses Code Name Primary? Qualifier 724.5E Back Pain Yes Plan: PREDNISONE 10 MG TAB V04.81Q Needs Flu Shot Plan: INFLUENZA VACCINE SPLIT 3+YRS IM no increase in pain meds at the present documented in this encounter Plan of Treatment Not on filedocumented as of this encounter Visit Diagnoses Diagnosis Back pain - Primary Backache, unspecified Needs flu shot Need for prophylactic vaccination and i noculation against influenza documented in this encounter"
--- OUTSIDE RECORDS SUMMARY | 2019-10-21 18:48 | XMS REPORT | Encounter Summary ---
Author Author [facility] Organization [facility] Address Unknown Phone Unavailable Care Team Providers Care Posting Clerk Name Role Phone PCP Unavailable Reason for Visit * Reason Comments Cough since yesterday - productiv e greenish at times - no fever Chest Pain from coughing - thinks rela ari to COPD Headache since yesterday - took home methadone last night but not much relief in the headache Encounter Details Care Team Description Date Type Department Jr Yemi Nunn, [address] [place] [id number] Obstructive Chronic Bronchitis with Exac erbation; Tobacco Abuse 05/02/2008 Emergency [facility] Emergency Department [address] [address] Social History Date Tobacco [...] Signs Reading Time Taken Comments Vital Sign 105/71 05/02/2008 4:45 AM COUNTER POCKET SEWER Blood Pressure 87 05/02/2008 4:45 AM COUNTER POCKET SEWER Pulse 36.8 C (98.3 F) 05/02/2008 3:44 AM COUNTER POCKET SEWER Temperature 22 05/02/2008 3:44 AM COUNTER POCKET SEWER Respiratory Rate 99% 05/02/2008 4:45 AM COUNTER POCKET SEWER Oxygen Saturation - - Inhaled Oxygen Concentration 127 kg (280 lb) 05/02/2008 3:44 AM COUNTER POCKET SEWER Weight 160 cm (5' 3") 05/02/2008 3:44 AM COUNTER POCKET SEWER Height 49.6 05/02/2008 3:44 AM COUNTER POCKET SEWER Body Mass Index documented in this encounter Discharge Instructions * Instructions* Jr Yemi Nunn, DO - 05/02/2008 * Attachments The following attachments cannot be sent through Care Everywhere.* Chronic Obstructive Pulmonary Disease (COPD) documented in this encounter Medications at Time of Discharge Start Date End Date Medication Sig Dispensed Refills 10/05/2007 Oxygen-Air Delivery Take 2 L/min 0 Systems Misc Leisa by inhalation daily at bedtime. 10/05/2007 ACCU-CHEK ACTIVE CARE by See Admin 0 Misc Kit Instructions route. Before meals, at bedtime, and as needed 05/02/2008 06/01/2008 cefUROXime axetil Take 1 Tab by 20 Tab 0 (CEFTIN) 250 mg Oral Tab mouth every 12 hours. 04/22/2008 05/25/2008 amphetamine-dextroampheta Take 1 Cap by 30 Cap 0 mine SR 24 hour (ADDERALL mouth daily XR) 20 mg Oral early [id number]: ADHD morning. For adhd 06/30/2008 DILANTIN EXTENDED 100 mg Take 200 mg 0 Oral Cap by mouth 2 times daily. Hasn't been taking for the past 1 1/2 wks 04/09/08 04/09/2008 05/06/2008 DEPAKOTE 500 mg Oral TbEC Take 1 Tab by 60 Tab 1 mouth 2 times daily. 04/02/2008 06/17/2008 topiramate (TOPAMAX) 50 Take 1 [...] ED Notes * Ari Stanley Physician - 05/04/2008 12:55 PM COUNTER POCKET SEWER * Kirstin Houston RN - 05/02/2008 5:05 AM COUNTER POCKET SEWER Pt reports she feels much better since breathing treatment. Headache is improve d as well. TER POCKET SEWER * Kirstin Houston RN - 05/02/2008 4:49 AM COUNTER POCKET SEWER Pt back from x-ray via w/c. TER POCKET SEWER * Jr Yemi Nunn DO - 05/02/2008 4:46 AM COUNTER POCKET SEWER HISTORY OF PRESENT ILLNESS Ayden Odom, a 37 y.o. female presents to the ED with a Chief Complaint o f Cough, Chest Pain and Headache Patient is a 37 y.o. female presenting with cough, chest pain, and headaches. Th e history is provided by the patient. Cough This is a recurrent problem. The current episode started 2 days ago. The problem has been gradually worsening. The cough is productive of brown sputum. There has been no fever. Associated symptoms include chest pain. Pertinent negatives inc lude no chills. Treatments Tried: Believe she has tried her inhalers. The treatm ent provided no relief. She is a smoker. Her past medical history is significant for bronchitis, pneumonia, COPD, emphysema and asthma. Chest Pain Associated symptoms include cough and sputum production. Pertinent negatives inc lude no fever and no hemoptysis. Headache Pertinent negatives include no fever. REVIEW OF SYSTEMS Review of Systems Constitutional: Negative for fever and chills. HENT: Chronic. Has long hx of. Eyes: Negative. Respiratory: Positive for cough and sputum production. Negative for hemoptysis. Cardiovascular: Positive for chest pain. With cough. Gastrointestinal: Negative. Genitourinary: Negative. Musculoskeletal: Negative. Skin: Negative. Neurological: Negative. Endo/Heme/Allergies: Negative. Psychiatric/Behavioral: Negative. PAST MEDICAL HISTORY REVIEWED Past Medical History [...] Aloe vera, Tape and Doxycycline HOME MEDICATIONS cefUROXime axetil (CEFTIN) 250 mg Oral Tab Take 1 Tab by mouth every 12 hour s. 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 For adhd DILANTIN EXTENDED 100 mg Oral Cap Take 200 mg by mouth 2 times daily. Hasn't been taking for the past 1 1/2 wks 04/09/08 DEPAKOTE 500 mg Oral TbEC Take 1 Tab by mouth 2 times daily. topiramate (TOPAMAX) 100 mg Oral Tab Take 1 Tab by mouth daily at bedtime. CHANTIX PO Take by mouth. ZYPREXA 5 [...] Puff by inhalation 2 ti mes daily. topiramate (TOPAMAX) 50 mg Oral Tab [...] as needed PHYSICAL EXAM Initial Vitals BP 05/02/08 0344 110/44 mmHg Pulse 05/02/08 0344 79 Resp 05/02/08 0344 22 Temp 05/02/08 0344 98.3 F (36.8 C) Temp src 05/02/08 0344 Oral SpO2 05/02/08 0344 95 % BP 110/44 | Pulse 79 | Temp(Src) 98.3 F (36.8 C) (Oral) | Resp 22 | Ht 5' 3" (1.6 m) | Wt 127.007 kg | SpO2 95% | LMP Hysterectomy Physical Exam Nursing note and vitals reviewed. Constitutional: She is oriented. She appears well-developed and well-nourished. No distress. HENT: Head: Normocephalic and atraumatic. Mouth/Throat: Oropharynx is clear and moist. Neck: Neck supple. No JVD present. Cardiovascular: Normal rate, normal heart sounds and intact distal pulses. Exam reveals no gallop and no friction rub. No murmur heard. Pulmonary/Chest: Effort normal. No respiratory distress. Rhonchi L>R & Exp.>Insp. Abdominal: Soft. Morbidly Obese. Lymphadenopathy: She has no cervical adenopathy. Neurological: She is alert and oriented. Skin: Skin is warm and dry. Psychiatric: Her behavior is normal. Judgment and thought content normal. She ex hibits a depressed mood. MDM Coding Reviewed: nursing note and vitals Interpretation: labs and x-ray DIAGNOSTICS LAB: Results for orders placed during the hospital encounter of 05/02/2008 (from the past 24 hour(s)) CBC WITH MANUAL DIFFERENTIAL Component Value Range BANDS 2 0-22 (%Manual) NEUTROPHILS, SEG 63 30-68 (%Manual) LYMPHOCYTES 28 14-50 (%Manual) MONOCYTE 7 0-11 (%Manual) PLATELET EST. Normal - WBC ESTIMATE Normal - WBC 9.79 3.0-10.4 (x10E3) RBC 4.15 3.77-4.97 (x10E6) HEMOGLOBIN 13.2 11.9-15.0 (g/dL) HEMATOCRIT 37.8 34.4-43.6 (%) MCV 91.0 79-100 (fL) MCH 31.7 28-34 (pg) MCHC 34.9 33-36 (g/dL) RDW 13.5 11.5-15.1 (%) PLATELETS 148 148-408 (x10E3) MPV 8.5 7.4-10.6 (fL) NEUTROPHILS 62.8 43-73 (%) LYMPHOCYTES 30.0 19-47 (%) MONOCYTES 4.9 3-9 (%) EOSINOPHILS 2.1 0-6 (%) BASOPHILS 0.2 0-1.2 (%) NEUTROPHIL ABSOLUTE 6.14 1.3-7.6 (x10E3) LYMPHOCYTE ABSOLUTE 2.94 0.6-4.9 (x10E3) MONOCYTE ABSOLUTE 0.48 0.1-0.9 (x10E3) EOSINOPHIL ABSOLUTE 0.21 (*) 0.0-0.2 (x10E3) BASOPHILS ABSOLUTE 0.02 0-0.1 (x10E3) RADIOLOGY: XR CHEST PA AND LATERAL (Results Pending) NAD. EKG: PROCEDURES MEDICAL DECISION MAKING AND PLAN OF CARE CLINICAL IMPRESSION Encounter Diagnoses Code Name Primary? Qualifier 491.21 Obstructive Chronic Bronchitis with Exacerbation 305.1U Tobacco Abuse CASE DISCUSSED PATIENT COUNSELING Diagnostics reviewed and questions answered. Diagnosis, treatment options and p radha of care discussed with understanding verbalized. DISPOSITION, EDUCATION AND MEDICATION RECONCILIATION Medications reconciled. See after visit summary for patient education on discha rged patients. Will give her 8mg of Decadron + 80mg of Depo-Medrol IM. Rx Ceftin 250mg BID X 10d. Cont. Her nebs Q 4h prn. Really needs to stop smoking! To F/U c/ her PCP on Sunday, 05/04, if continued problems. Knows to RTER if things get worse. TER POCKET SEWER * Kirstin Houston RN - 05/02/2008 4:42 AM COUNTER POCKET SEWER Pt to x-ray via w/c. TER POCKET SEWER * Kirstin Houston RN - 05/02/2008 4:25 [address] P[address]ET [address] Dr. Nunn in to see pt. TER POCKET SEWER * Kirstin Houston RN - 05/02/2008 4:18 AM COUNTER POCKET SEWER Pt reports she had been using her home breathing treatments more often yesterday and has a hx of "getting pneumonia very easily." Pt advised Dr. Nunn will be with her shortly. TER POCKET SEWER documented in this encounter Plan of Treatment Not on filedocumented as of this encounter Procedures Comments Procedure Name Priority Date/Time Associated Diag nosis XR CHEST PA AND LATERAL 2 Stat 05/02/2008 VW 4:46 AM COUNTER POCKET SEWER CBC WITH MANUAL Stat 05/02/2008 DIFFERENTIAL 4:32 AM COUNTER POCKET SEWER documented in this encounter Results * XR CHEST PA AND LATERAL (05/02/2008 4:46 AM COUNTER POCKET SEWER) Specimen Impressions Performed At : No radiographic evidence of a consolida ting pneumonia. If symptoms persist CT may be helpful. Narrative Performed At TWO VIEW CHEST: Frontal and lateral views obtained for evaluation for cough and shortness of air. The exam is technically challenged by b cecelia habitus. Comparison is made with 04-08-08. PA AND LATERAL CHEST X-RAY: HISTORY: CHEST PAIN. The cardiac silhouette and pulmonary va scularity are within normal limits. There are no infiltrates or m asses seen. No evidence of pneumothorax. Procedure Note Macho Barrios MD - 05/04/2008 4:23 PM COUNTER POCKET SEWER TWO VIEW CHEST: Frontal and lateral views obtained for evaluation for cough and shortness of air. The exam is technically challenged by body habitus. Comparison is made with 04-08-08. PA AND LATERAL CHEST X-RAY: HISTORY: CHEST PAIN. The cardiac silhouette and pulmonary vascularity are within normal limits. There are no infiltrates or masses seen. No evidence of pneumothorax. IMPRESSION: No radiographic evidence of a consolidating pneumonia. If symptoms persist CT may be helpful. * CBC WITH MANUAL DIFFERENTIAL (05/02/2008 4:32 AM COUNTER POCKET SEWER) BANDS 2 0 - 22 %[facility] NEUTROPHILS, 63 30 - 68 %[facility] LYMPHOCYTES 28 14 - 50 %[facility] MONOCYTE 7 0 - 11 %[facility] PLATELET EST. Normal [facility] WBC ESTIMATE Normal [facility] WBC 9.79 3.0 - 10.4 x10E3 [facility] RBC 4.15 3.77 - 4.97 x10E6 [facility] HEMOGLOBIN 13.2 11.9 - 15.0 g/dL [facility] HEMATOCRIT 37.8 34.4 - 43.6 % [facility] MCV 91.0 79 - 100 fL [facility] MCH 31.7 28 - 34 pg [facility] MCHC 34.9 33 - 36 g/dL [facility] RDW 13.5 11.5 - 15.1 % [facility] PLATELETS 148 148 - 408 x10E3 [facility] MPV 8.5 7.4 - 10.6 fL [facility] NEUTROPHILS 62.8 43 - 73 % [facility] LYMPHOCYTES 30.0 19 - 47 % [facility] MONOCYTES 4.9 3 - 9 % [facility] EOSINOPHILS 2.1 0 - 6 % [facility] BASOPHILS 0.2 0 - 1.2 % [facility] NEUTROPHIL 6.14 1.3 - 7.6 x10E3 [facility] LYMPHOCYTE 2.94 0.6 - 4.9 x10E3 [facility] MONOCYTE 0.48 0.1 - 0.9 x10E3 [facility] EOSINOPHIL 0.21 (H) 0.0 - 0.2 x10E3 [facility] BASOPHILS 0.02Comment: [facility],CLEMENTE 0 - 0.1 x10E3 [facility] ACCT#[id number], ,,,, [facility] Specimen Blood specimen (specimen) Performing Organization Address City/State/Zipcode Ph one Number INTERFACE SYSTEM [facility] [place]# [id number] Milly RIOJAS S [address] [facility] [address] [facility] documented in this encounter Visit Diagnoses Diagnosis Obstructive chronic bronchitis with exa cerbation Tobacco abuse Tobacco use disorder documented in this encounter Administered Medications Action Date Dose Rate Site Medication Order MAR Action 05/02/2008 4:52 AM COUNTER POCKET SEWER 3 mL albuterol-ipratropium (DUONEB) 0.5-2.5 Given mg/3 mL inhalation solution 3 mL 3 mL, Inhalation, EVERY 4 HOURS RESPIRATORY, First dose on 05/02/08 at 0430, Until Discontinued, Routine 05/02/2008 5:15 AM COUNTER POCKET SEWER 8 mg Deltoid, Right dexamethasone (DECADRON) injection 8 mg Given 8 mg, IM, ONE TIME ONLY, 1 dose, 05/02/08 at 0515, Stat 05/02/2008 5:16 AM COUNTER POCKET SEWER 80 mg Deltoid, Right methylPREDNISolone Acetate (DEPO-MEDROL) Given injection 80 mg 80 mg, IM, ONE TIME ONLY, 1 dose, 05/02/08 at 0515, Stat documented in this encounter
--- OUTSIDE RECORDS SUMMARY | 2019-10-21 18:49 | XMS REPORT | Encounter Summary ---
Author Author [facility] Organization [facility] Address Unknown Phone Unavailable Care Team Providers Care Pst Manager Name Role Phone PCP Unavailable Reason for Visit * Reason Comments Knee Pain Leg Swelling CALF Night Sweats Medication Problem DISCUSS MEDICATIONS Encounter Details Care Team Description Date Type Department Provider, Abstract 02/25/2008 Abstract [facility] ABSTRACTION Social History Date Tobacco Use Types Packs/Day [...] Reading Time Taken Comments Vital Sign 108/60 02/25/2008 3:52 PM CDT Blood Pressure 90 02/25/2008 3:52 PM CDT Pulse 36.8 C (98.3 F) 02/25/2008 3:52 PM CDT Temperature - - Respiratory Rate - - Oxygen Saturation - - Inhaled Oxygen Concentration - - Weight - - Height - - Body Mass Index documented in this encounter Plan of Treatment Not on filedocumented as of this encounter Visit Diagnoses Not on filedocumented in this encounter
--- OUTSIDE RECORDS SUMMARY | 2019-10-21 18:49 | XMS REPORT | Encounter Summary ---
Author Author [facility] Organization [facility] Address Unknown Phone Unavailable Care Team Providers Care Regional Sales Engineer Name Role Phone Phong Stephens MD PCP Unavailable Robby Rajan APRN Unavailable Phong Stephens MD PCP Unavailable Carlos Middleton PCP Lorraine Hathaway MD PCP [facility], External Provider PCP Unavailable Encounter Details Care Team Description Date Type Department Maurice Durbin MD [address] [place] [id number] 02/07/2008 Outpatient [facility] [address] [facility] Historical MEDICAID Social History Date Tobacco Use Types Packs/Day [...] Priority Date/Time Associated Diag nosis PROTIME-INR Routine 02/07/2008 3:03 PM CDT documented in this encounter Results * PROTIME-INR (02/07/2008 3:03 PM CDT) PROTIME 17.4 (H) 9.5 - 11.5 Sec INTERFACE SYSTEM INR 1.71 (L) 2.0 - 3.0 INTERFACE SYSTEM Specimen Performing Organization Address City/State/Zipcode Ph one Number INTERFACE SYSTEM INTERFACE SYSTEM Refer to clinic/hospital department documented in this encounter Visit Diagnoses Not on filedocumented in this encounter
--- OUTSIDE RECORDS SUMMARY | 2019-10-21 18:49 | XMS REPORT | Encounter Summary ---
Author Author [facility] Organization [facility] Address Unknown Phone Unavailable Care Team Providers Care Egg Separator Name Role Phone PCP Unavailable Encounter Details Care Team Description Date Type Department Conversion, History 02/19/2008 Orders Only HIS CONVERSION Social History Date Tobacco Use Types Packs/Day Years Used Never Assessed Sex Assigned at Date Recorded Not on file Industry Job Start Date Occupation Not on file Not on file Not on file Travel End Travel History Travel Start No recent travel history available. documented as of this encounter Progress Notes * Interface, Rayray Gutierrez Conv Transcriptions - 03/11/2008 2:41 PM CDT 2 :41 PM CDT * Interface, Rayray TempleKromatid Conv Transcriptions - 03/02/2008 8:34 PM CDT 8 :34 PM CDT documented in this encounter Plan of Treatment Not on filedocumented as of this encounter Visit Diagnoses Not on filedocumented in this encounter
--- OUTSIDE RECORDS SUMMARY | 2019-10-21 18:49 | XMS REPORT | Encounter Summary ---
Author Author [facility] Organization [facility] Address Unknown Phone Unavailable Care Team Providers Care Artist Representative Name Role Phone PCP Unavailable Encounter Details Care Team Description Date Type Department Maurice Durbin MD [address] [place] [address] 03/24/2008 Abstract [facility] Primar y Care [place] [address] [place] [address] Social History Date Tobacco Use [...]
--- OUTSIDE RECORDS SUMMARY | 2019-10-21 18:49 | XMS REPORT | Encounter Summary ---
Author Author [facility] Organization [facility] Address Unknown Phone Unavailable Care Team Providers Care Bundler Name Role Phone PCP Unavailable Encounter Details Care Team Description Date Type Department Conversion, History 03/03/2008 Orders Only HIS CONVERSION Social History Date [...] as of this encounter Progress Notes * Rayray Elizalde Transcriptions - 03/08/2008 6:38 PM CDT 6 :38 PM CDT documented in this encounter Plan of Treatment Not on filedocumented as of this encounter Visit Diagnoses Not on filedocumented in this encounter
--- OUTSIDE RECORDS SUMMARY | 2019-10-21 18:49 | XMS REPORT | Encounter Summary ---
Author Author [facility] Organization [facility] Address Unknown Phone Unavailable Care Team Providers Care Chicken Fancier Name Role Phone Phong Stephens MD PCP Unavailable Robby Rajan ARCHITECTURE CONSULTANT Unavailable Phong Stephens MD PCP Unavailable Carlos Middleton PCP Lorraine Hathaway MD PCP [facility], External Provider PCP Unavailable Encounter Details Care Team Description Date Type Department Emy Bran APRN NO ADDRESS ON FILE 03/02/2008 Emergency [facility] Emergency [facility] [address] [address] Social History Date Tobacco [...] Procedure Name Priority Date/Time Associated Diag nosis CARDIAC ENZYMES Routine 03/02/2008 11:25 PM CDT PROTIME-INR Routine 03/02/2008 11:30 AM CDT CBC WITH MANUAL Routine 03/02/2008 DIFFERENTIAL 11:30 AM CDT TROPONIN Routine 03/02/2008 11:30 AM CDT TSH Routine 03/02/2008 11:30 AM CDT BRAIN NATRIURETIC Routine 03/02/2008 PEPTIDE, BNP OR PROBNP 11:30 AM CDT MYOGLOBIN Routine 03/02/2008 11:30 AM CDT MAGNESIUM LEVEL Routine 03/02/2008 11:30 AM CDT COMPREHENSIVE METABOLIC Routine 03/02/2008 PANEL 11:30 AM CDT DRUG SCREEN, URINE Routine 03/02/2008 documented in this encounter Results * CARDIAC ENZYMES (03/02/2008 11:25 PM CDT) INTERPRETATION See below. INTERFACE Comment: SYSTEM INTERPRETATION - 03/03/08 0814 Normal initial cardiac marker results. Nasreen Nguyen Specimen Narrative Performed At CARDIAC TROP-12HR TROP-12 HR from [id number]. INT ERFACE SYSTEM CARDIAC Final: FINAL from [id number] . Performing Organization Address City/State/Zipcode Ph one Number INTERFACE SYSTEM INTERFACE SYSTEM Refer to clinic/hospital department * CBC WITH MANUAL DIFFERENTIAL (03/02/2008 11:30 AM CDT) WBC 9.64 3.0 - 10.4 x10E3 INTERFACE SYSTEM RBC 3.88 3.77 - 4.97 x10E6 INTERFACE SYSTEM HEMOGLOBIN 12.2 11.9 - 15.0 g/dL INTERFACE SYSTEM HEMATOCRIT 36.4 34.4 - 43.6 % INTERFACE SYSTEM MCV 93.7 79 - 100 fL INTERFACE SYSTEM MCH 31.5 28 - 34 pg INTERFACE SYSTEM MCHC 33.6 33 - 36 g/dL INTERFACE SYSTEM RDW 13.9 11.5 - 15.1 % INTERFACE SYSTEM PLATELETS 221 148 - 408 x10E3 INTERFACE SYSTEM MPV 9.4 7.4 - 10.6 fL INTERFACE SYSTEM NEUTROPHILS 63.8 43 - 73 % INTERFACE SYSTEM LYMPHOCYTES 26.9 19 - 47 % INTERFACE SYSTEM MONOCYTES 6.2 3 - 9 % INTERFACE SYSTEM EOSINOPHILS 3.0 0 - 6 % INTERFACE SYSTEM BASOPHILS 0.2 0 - 1.2 % INTERFACE SYSTEM NEUTROPHIL 6.15 1.3 - 7.6 x10E3 INTERFACE ABSOLUTE SYSTEM LYMPHOCYTE 2.58 0.6 - 4.9 x10E3 INTERFACE ABSOLUTE SYSTEM MONOCYTE 0.59 0.1 - 0.9 x10E3 INTERFACE ABSOLUTE SYSTEM EOSINOPHIL 0.29 (H) 0.0 - 0.2 x10E3 INTERFACE ABSOLUTE SYSTEM BASOPHILS 0.02 0 - 0.1 x10E3 INTERFACE ABSOLUTE SYSTEM EOSINOPHILS 1 0 - 8 % INTERFACE SYSTEM METAMYELOCYTE 1 0 % INTERFACE SYSTEM BANDS 4 0 - 22 % INTERFACE SYSTEM NEUTROPHILS, 66 30 - 68 % INTERFACE SEG SYSTEM LYMPHOCYTES 23 14 - 50 % INTERFACE SYSTEM MONOCYTE 5 0 - 11 % INTERFACE SYSTEM PLATELET EST. Normal INTERFACE SYSTEM WBC ESTIMATE Normal INTERFACE SYSTEM Specimen Performing Organization Address [facility] one Number INTERFACE SYSTEM INTERFACE SYSTEM Refer to clinic/hospital department * PROTIME-INR (03/02/2008 11:30 AM CDT) PROTIME 12.3 (H) 9.5 - 11.5 Sec INTERFACE SYSTEM INR 1.18 (L) 2.0 - 3.0 INTERFACE SYSTEM Specimen Performing Organization Address [facility] one Number INTERFACE SYSTEM INTERFACE SYSTEM Refer to clinic/hospital department * TROPONIN (03/02/2008 11:30 AM CDT) TROPONIN I LESS THAN 0.04 0 - 0.4 ng/ml INTERFACE SYSTEM Specimen Narrative Performed At CARDIAC JA-0HR JA-0 HR from [id number]. INTERFA CE SYSTEM CARDIAC TROP-0HR TROP-0 HR from [id number]. Performing Organization Address [facility] one Number INTERFACE SYSTEM INTERFACE SYSTEM Refer to clinic/hospital department * MYOGLOBIN (03/02/2008 11:30 AM CDT) MYOGLOBIN, 46 9 - 83 ng/ml INTERFACE PLASMA SYSTEM Specimen Narrative Performed At CARDIAC JA-0HR JA-0 HR from [id number]. INTERFA CE SYSTEM CARDIAC TROP-0HR TROP-0 HR from [id number]. Performing Organization Address [facility] one Number INTERFACE SYSTEM INTERFACE SYSTEM Refer to clinic/hospital department * BRAIN NATRIURETIC PEPTIDE, BNP OR PROBNP (03/02/2008 11:30 AM CDT) BRAIN 69 0 - 125 pg/ml INTERFACE NATRIURETIC SYSTEM PEPTIDE Specimen Performing Organization Address [facility] one Number INTERFACE SYSTEM INTERFACE SYSTEM Refer to clinic/hospital department * TSH (03/02/2008 11:30 AM CDT) TSH 1.78 0.34 - 4.82 uIU/ml INTERFACE SYSTEM Specimen Performing Organization Address [facility] one Number INTERFACE SYSTEM INTERFACE SYSTEM Refer to clinic/hospital department * MAGNESIUM LEVEL (03/02/2008 11:30 AM CDT) MAGNESIUM 2.2 1.8 - 2.4 mg/dl INTERFACE SYSTEM Specimen Performing Organization Address [facility] one Number INTERFACE SYSTEM INTERFACE SYSTEM Refer to clinic/hospital department * COMPREHENSIVE METABOLIC PANEL (03/02/2008 11:30 AM CDT) GLUCOSE 101 70 - 110 mg/dl INTERFACE SYSTEM BUN 14.0 7 - 20 mg/dl INTERFACE SYSTEM CREATININE 0.74 0.51 - 0.95 mg/dl INTERFACE SYSTEM BUN/CREAT RATIO 18.9 10 - 20 INTERFACE SYSTEM GFR 89 >90 ml/min INTERFACE SYSTEM SODIUM 140 135 - 145 mmol/L INTERFACE SYSTEM POTASSIUM 4.3 3.3 - 4.8 mmol/L INTERFACE SYSTEM CHLORIDE 108 (H) 98 - 107 mmol/L INTERFACE SYSTEM CO2 28.3 22 - 31 mmol/L INTERFACE SYSTEM ANION GAP 8 4 - 20 INTERFACE SYSTEM CALCIUM 8.5 8.5 - 10.1 mg/dl INTERFACE SYSTEM ALBUMIN 3.6 3.4 - 5.0 g/dl INTERFACE SYSTEM TOTAL PROTEIN 7.3 6.4 - 8.2 g/dl INTERFACE SYSTEM GLOBULIN (CALC) 3.7 INTERFACE SYSTEM ALBUMIN/GLOBULI 1.0 INTERFACE N RATIO SYSTEM BILIRUBIN TOTAL 0.2 <1.1 mg/dl INTERFACE SYSTEM ALKALINE 156 (H) 50 - 136 IU/L INTERFACE PHOSPHATASE SYSTEM AST 29 10 - 40 IU/L INTERFACE SYSTEM ALT 37 25 - 70 IU/L INTERFACE SYSTEM Specimen Performing Organization Address [facility] one Number INTERFACE SYSTEM INTERFACE SYSTEM Refer to clinic/hospital department * DRUG SCREEN, URINE (03/02/2008) AMPHETAMINE Negative INTERFACE QUAL, URINE SYSTEM BARBITURATE Negative INTERFACE QUAL, URINE SYSTEM BENZODIAZEPINE Negative INTERFACE QUAL, URINE SYSTEM COCAINE METAB Negative INTERFACE QUAL URINE SYSTEM CANNABINOIDS Negative INTERFACE QUAL, URINE SYSTEM METHAMPHETAMINE Negative INTERFACE QUAL, URINE SYSTEM METHADONE QUAL, Positive (H) INTERFACE URINE SYSTEM OPIATE QUAL, Negative INTERFACE URINE SYSTEM PROPOXYPHENE Negative INTERFACE QUAL, URINE SYSTEM TRICYCLICS Negative INTERFACE QUAL, URINE Comment: SYSTEM Chain of Custody Handling was not performed on this specimen. This screen will not meet medical-legal requirements. CUTOFF LIMITS Amphetamines 1000 ng/ml Barbiturates 200 ng/ml Benzodiazepines 300 ng/ml Cocaine metabolite 300 ng/ml Marijuana metabolites 50 ng/ml Methamphetamine 1000 ng/ml Methadone 300 ng/ml Opiates 300 ng/ml Propoxyphene 300 ng/nl Tricyclic Antidepressants 300 ng/ml Specimen Performing Organization Address [facility]/State[facility] one Number INTERFACE SYSTEM INTERFACE SYSTEM Refer to clinic/hospital department documented in this encounter Visit Diagnoses Not on filedocumented in this encounter
--- OUTSIDE RECORDS SUMMARY | 2019-10-21 18:49 | XMS REPORT | Encounter Summary ---
Author Author [facility] Organization [facility] Address Unknown Phone Unavailable Care Team Providers Care Clay Artisan Name Role Phone Phong Stephens MD PCP Unavailable Robby Rajan APRN Unavailable Phong Stephens MD PCP Unavailable Carlos Middleton PCP Lorraine Hathaway MD PCP [facility], External Provider PCP Unavailable Encounter Details Care Team Description Date Type Department Maurice Durbin MD [address] [place] [id number] 02/19/2008 Outpatient [facility] harley Giordano [address] [address] Social History Date Tobacco [...]
--- OUTSIDE RECORDS SUMMARY | 2019-10-21 18:49 | XMS REPORT | Encounter Summary ---
Author Author [facility] Organization [facility] Address Unknown Phone Unavailable Care Team Providers Care Supplier Development Manager Name Role Phone PCP Unavailable Reason for Visit * Reason Comments Headache Encounter Details Care Team Description Date Type Department Jessica Christian Headache 03/23/2008 Telephone [facility] Primar y Care [address] [id number] Social History Date Tobacco Use Types Packs/Day [...] * Telephone Encounter - Jessica Christian - 03/23/2008 1:49 PM CDT Would like to take Methadone for headache. Per Dr Durbin may take as long as ta kes as prescribed. documented in this encounter Plan of Treatment Not on filedocumented as of this encounter Visit Diagnoses Not on filedocumented in this encounter
--- OUTSIDE RECORDS SUMMARY | 2019-10-21 18:49 | XMS REPORT | Encounter Summary ---
Author Author [facility] Organization [facility] Address Unknown Phone Unavailable Care Team Providers Care Dairy Store Manager Name Role Phone PCP Unavailable Encounter Details Care Team Description Date Type Department Conversion, History 02/20/2008 Orders Only HIS CONVERSION Social History Date Tobacco Use Types Packs/Day Years Used Never Assessed Sex Assigned at Date Recorded Not on file Industry Job Start Date Occupation Not on file Not on file Not on file Travel End Travel History Travel Start No recent travel history available. documented as of this encounter Progress Notes * Interface, Rayray Gutierrez Conv Transcriptions - 03/08/2008 6:37 PM CDT 6 :37 PM CDT * Interface, Rayray Gutierrez Conv Transcriptions - 03/05/2008 4:28 AM CDT Electronically signed by Interface, [facility] [employer] Conv Transcriptions at 03/05/2008 4 :28 AM CDT documented in this encounter Plan of Treatment Not on filedocumented as of this encounter Visit Diagnoses Not on filedocumented in this encounter
--- OUTSIDE RECORDS SUMMARY | 2019-10-21 18:49 | XMS REPORT | Encounter Summary ---
Author Author [facility] Organization [facility] Address Unknown Phone Unavailable Care Team Providers Care Oyster Sorter Name Role Phone PCP Unavailable Reason for Visit * Reason Comments Results for holter monitor Medication Refill Methodone and Flexaril Knee Pain Left , hurts to lay on it, wakes her up at night. Encounter Details Care Team Description Date Type Department Maurice Durbin MD [address] [place] [address] Maxillary Sinusitis; Chronic Airway Obstruction, not Elsewhere Classified; Unspecified Asthma; Bipolar Disorder, Unspecified; Unspecified Hereditary and Idiopathic Peripheral Neuropathy 03/12/2008 Office Visit [facility] [address] [place] [address] Social History Date Tobacco Use [...] Reading Time Taken Comments Vital Sign 100/60 03/12/2008 11:29 AM CDT Blood Pressure 100 03/12/2008 11:29 AM CDT Pulse 36.3 C (97.4 F) 03/12/2008 11:29 AM CDT Temperature - - Respiratory Rate - - Oxygen Saturation - - Inhaled Oxygen Concentration - - Weight - - Height - - Body Mass Index documented in this encounter Progress Notes * Maurice Durbin MD - 03/12/2008 3:19 PM CDT HISTORY OF PRESENT ILLNESS Ayden Odom, a 37 y.o. female. Results This is a chronic problem. The current episode started more than 1 week ago. The problem occurs constantly. The problem has not changed since onset. Associated symptoms include headaches and shortness of breath. Pertinent negatives include no chest pain and no abdominal pain. The symptoms are worsened by bending, swall owing and walking. The symptoms are relieved by medications. She has tried nothi ng for the symptoms. The treatment provided mild relief. Medication Refill Associated symptoms include headaches and shortness of breath. Pertinent negativ es include no chest pain and no abdominal pain. Knee Pain REVIEW OF SYSTEMS Review of Systems Constitutional: Negative for fever, chills and malaise/fatigue. HENT: Negative for ear pain, congestion and sore throat. Eyes: Negative for blurred vision and double vision. Respiratory: Positive for shortness of breath. Negative for cough and sputum pro duction. Cardiovascular: Negative for chest pain. Gastrointestinal: Negative for nausea, vomiting, abdominal pain and diarrhea. Skin: Negative for rash. Neurological: Positive for headaches. I have reviewed the patient's medical history in detail and updated the computer ized patient record. PHYSICAL EXAM BP 100/60 | Pulse 100 | Temp 97.4 F (36.3 C) Physical Exam HENT: Right Ear: External ear normal. Left [...] PLAN: Encounter Diagnoses Code Name Primary? Qualifier 473.0A Maxillary Sinusitis Plan: AMOXICILLIN-POT CLAVULANATE 875 MG-125 MG TAB, FLUTICASONE 50 MCG/ACTUATI ON NASAL SPRAY, SUSP 496 Chronic Airway Obstruction, not Elsewhere Classified 493.90 Unspecified Asthma 296.80 Bipolar Disorder, Unspecified 356.9 Unspecified Hereditary and Idiopathic Peripheral Neuropathy continue to hold zyprexa at 5 mg start augmentin spent 30 min with pt * Dwayne Barrios - 03/12/2008 11:32 AM CDT Reports Tay is working, :"went 4 Hr without a cigarette". ................ ........JUAN DAVID Vo documented in this encounter Plan of Treatment Not on filedocumented as of this encounter Visit Diagnoses Diagnosis Maxillary sinusitis Chronic maxillary sinusitis Chronic airway obstruction, not elsewhe re classified Unspecified asthma(493.90) Unspecified asthma Bipolar disorder, unspecified Unspecified hereditary and idiopathic p eripheral neuropathy documented in this encounter
--- OUTSIDE RECORDS SUMMARY | 2019-10-21 18:49 | XMS REPORT | Encounter Summary ---
Author Author [facility] Organization [facility] Address Unknown Phone Unavailable Care Team Providers Care Cash Posting Clerk Name Role Phone Phong Stephens MD PCP Unavailable Robby Rajan APRN Unavailable Phong Stephens MD PCP Unavailable Carlos Middleton PCP Lorraine Hathaway MD PCP [facility], External Provider PCP Unavailable Encounter Details Care Team Description Date Type Department Lavell Bautista MD [address] [place] [address] Unspecified Backache (Primary Dx) 02/07/2008 Outpatient [facility] [address] [address] Social History Date Tobacco Use Types Packs/Day Years Used Never Assessed Sex Assigned at Date Recorded Not on file Industry Job Start Date Occupation Not on file Not on file Not on file Travel End Travel History Travel Start No recent travel history available. documented as of this encounter Plan of Treatment Not on filedocumented as of this encounter Visit Diagnoses Diagnosis Backache, unspecified - Primary documented in this encounter
--- OUTSIDE RECORDS SUMMARY | 2019-10-21 18:49 | XMS REPORT | Encounter Summary ---
Author Author [facility] Organization [facility] Address Unknown Phone Unavailable Care Team Providers Care Principal Technical Specialist Name Role Phone PCP Unavailable Reason for Visit * Reason Comments Medication Refill Encounter Details Care Team Description Date Type Department Michelle Grullon, Arboriculture Teacher 03/23/[address] [facility] Primar y Care [address] [address] Social History Date Tobacco Use [...] * Telephone Encounter - Pretty Grullon - 03/23/2008 7:12 PM CDT Pt needs refills on ambien 10mg #30 and zyprexa 5mg #30. vo dr mayer both of lizbeth le were ok'd x3 to [facility]. documented in this encounter Plan of Treatment Not on filedocumented as of this encounter Visit Diagnoses Not on filedocumented in this encounter
--- OUTSIDE RECORDS SUMMARY | 2019-10-21 18:49 | XMS REPORT | Encounter Summary ---
Author Author [facility] Organization [facility] Address Unknown Phone Unavailable Care Team Providers Care Civil Engineering Manager Name Role Phone PCP Unavailable Encounter Details Care Team Description Date Type Department Conversion, History 03/02/2008 Orders Only HIS CONVERSION Social History Date [...] Notes * Rayray Elizalde Transcriptions - 03/08/2008 6:36 PM CDT 6 :36 PM CDT documented in this encounter Plan of Treatment Not on filedocumented as of this encounter Visit Diagnoses Not on filedocumented in this encounter
--- OUTSIDE RECORDS SUMMARY | 2019-10-21 18:49 | XMS REPORT | Encounter Summary ---
Author Author [facility] Organization [facility] Address Unknown Phone Unavailable Care Team Providers Care Supervisor Instant Potato Processing Name Role Phone PCP Unavailable Encounter Details Care Team Description Date Type Department Conversion, History 02/04/2008 Orders Only HIS CONVERSION Social History Date [...] Interface, Rayray Gutierrez Conv Transcriptions - 03/05/2008 4:27 AM CDT Electronically signed by Interface, [facility] [employer] Conv Transcriptions at 03/05/2008 4 :27 AM CDT documented in this encounter Plan of Treatment Not on filedocumented as of this encounter Visit Diagnoses Not on filedocumented in this encounter
--- OUTSIDE RECORDS SUMMARY | 2019-10-21 18:49 | XMS REPORT | Encounter Summary ---
Author Author [facility] Organization [facility] Address Unknown Phone Unavailable Care Team Providers Care Corporate Accountant Name Role Phone PCP Unavailable Reason for Visit * Reason Comments Nausea Vomiting seen in Urgent Care, stoppe d antibiotic, had been feeling fuzzy and out of it. Encounter Details Care Team Description Date Type Department Maurice Durbin MD [address] [place] [address] Maxillary Sinusitis (Primary Dx) 03/25/2008 Office Visit [facility] Primar y Care [place] [address] [place] [address] Social History Date Tobacco Use [...] Reading Time Taken Comments Vital Sign 92/60 03/25/2008 8:55 AM CDT Blood Pressure 80 03/25/2008 8:55 AM CDT Pulse 36.8 C (98.2 F) 03/25/2008 8:55 AM CDT Temperature - - Respiratory Rate - - Oxygen Saturation - - Inhaled Oxygen Concentration - - Weight - - Height - - Body Mass Index documented in this encounter Progress Notes * Maurice Durbin MD - 03/26/2008 8:02 PM CDT HISTORY OF PRESENT ILLNESS Ayden Odom, a 37 y.o. female. Nausea This is a new problem. The current episode started 2 days ago. The problem has b een resolved. Associated symptoms include sweats, headaches and cough. Pertinent negatives include no chills, no fever, no abdominal pain, no diarrhea, no arthr algias, no myalgias and no URI. Vomiting This is a new problem. The current episode started 2 days ago. Associated sympto ms include sweats, headaches and cough. Pertinent negatives include no chills, n o fever, no abdominal pain, no diarrhea, no arthralgias, no myalgias and no URI. Sinus Pain The current episode started more than 1 week ago. The problem has been gradually worsening. The maximum temperature recorded by the patient prior to her arrival was 100 to 100.9 F. The fever has been present for 3 to 4 days. The pain is at a severity of 7/10. Associated symptoms include sweats and cough. Pertinent nega tives include no chills. REVIEW OF SYSTEMS Review of Systems Constitutional: Negative for fever and chills. Eyes: Negative for blurred vision and double vision. Respiratory: Positive for cough. Gastrointestinal: Negative for heartburn, nausea, abdominal pain and diarrhea. Musculoskeletal: Negative for myalgias and arthralgias. Neurological: Positive for headaches. Negative for dizziness, tremors, sensory c hange and speech change. Endo/Heme/Allergies: Negative for environmental allergies. Does not bruise/blee d easily. PHYSICAL EXAM BP 92/60 | Pulse 80 | Temp 98.2 F (36.8 C) Physical Exam HENT: Right Ear: External [...] Code Name Primary? Qualifier 473.0A Maxillary Sinusitis Yes stop doxy see orders documented in this encounter Plan of Treatment Not on filedocumented as of this encounter Visit Diagnoses Diagnosis Maxillary sinusitis - Primary Chronic maxillary sinusitis documented in this encounter"
--- OUTSIDE RECORDS SUMMARY | 2019-10-21 18:49 | XMS REPORT | Encounter Summary ---
Author Author [facility] Organization [facility] Address Unknown Phone Unavailable Care Team Providers Care Sharepoint Manager Name Role Phone PCP Unavailable Encounter Details Care Team Description Date Type Department Conversion, History 02/14/2008 Orders Only HIS CONVERSION Social History Date Tobacco Use Types Packs/Day Years Used Never Assessed Sex Assigned at Date Recorded Not on file Industry Job Start Date Occupation Not on file Not on file Not on file Travel End Travel History Travel Start No recent travel history available. documented as of this encounter Progress Notes * Interface, Rayray Gutierrez Conv Transcriptions - 03/08/2008 6:36 PM CDT 6 :36 PM CDT * Interface, Rayray [employer] Conv Transcriptions - 03/05/2008 4:26 AM CDT Electronically signed by Interface, [facility] [employer] Conv Transcriptions at 03/05/2008 4 :26 AM CDT documented in this encounter Plan of Treatment Not on filedocumented as of this encounter Visit Diagnoses Not on filedocumented in this encounter
--- OUTSIDE RECORDS SUMMARY | 2019-10-21 18:49 | XMS REPORT | Encounter Summary ---
Author Author [facility] Organization [facility] Address Unknown Phone Unavailable Care Team Providers Care Server Manager Name Role Phone PCP Unavailable Reason for Visit * Reason Comments Nausea (nausea started tonight. Ju st started new medication last night for sinus infection, prescribed by Dr. Durbin. W onder if they are having a reaction to the medication) Vomiting (vomiting started tonight, and she has passed out a few times in the past 24 hours) Cough She is coughing up greenish torrez mucus. Encounter Details Care Team Description Date Type Department Kashif Land PA [address] [place] [address] Nausea with Vomiting (Primary Dx) 03/24/2008 Office Visit [facility] [address] [place] [address] Social History Date Tobacco Use [...] Reading Time Taken Comments Vital Sign 110/70 03/24/2008 7:42 PM CDT Blood Pressure 97 03/24/2008 7:42 PM CDT Pulse 36.8 C (98.2 F) 03/24/2008 7:42 PM CDT Temperature - - Respiratory Rate 98% 03/24/2008 7:42 PM CDT Oxygen Saturation - - Inhaled Oxygen Concentration - - Weight - - Height - - Body Mass Index documented in this encounter Patient Instructions * Patient Instructions* Kashif Land PA - 03/24/2008 8:05 PM CDT Stop doxycycline for now. See Dr. Durbin in AM, appt made. C DT documented in this encounter Progress Notes * Kashif Land PA - 03/24/2008 8:02 PM CDT HISTORY OF PRESENT ILLNESS Ayden Odom, a 37 y.o. female. Nausea This is a new (Pt states diagnosed by Dr. Durbin with sinus infection and start ed on doxycycline yesterday. Developed nausea and vomiting today.) problem. The current episode started 12 to 24 hours ago. The problem occurs 2 to 4 times per day. The problem has not changed since onset. The vomit appears to be stomach co ntents. There has been no fever. Associated symptoms include headaches, myalgias and cough. Pertinent negatives include no chills, no fever, no sweats and no di arrhea. Vomiting Associated symptoms include headaches, myalgias and cough. Pertinent negatives i nclude no chills, no fever, no sweats and no diarrhea. Cough Associated symptoms include headaches and myalgias. Pertinent negatives include no chest pain, no chills, no sweats and no shortness of breath. REVIEW OF SYSTEMS Review of Systems Constitutional: Negative for fever and chills. HENT: Positive for congestion. Eyes: Negative for blurred vision and double vision. Respiratory: Positive for cough. Negative for hemoptysis and shortness of breath . Cardiovascular: Negative for chest pain and palpitations. Gastrointestinal: Positive for nausea and vomiting. Negative for diarrhea and me bronwyn. Genitourinary: Negative. Musculoskeletal: Positive for myalgias. Skin: Negative for rash. Neurological: Positive for headaches. PHYSICAL EXAM BP 110/70 | Pulse 97 | Temp 98.2 F (36.8 C) | SpO2 98% Physical Exam Constitutional: She is oriented. No distress. Obese HENT: Head: Normocephalic and atraumatic. Right Ear: External ear normal. Left Ear: External ear normal. Mouth/Throat: Oropharynx is clear and moist. Eyes: Conjunctivae and extraocular motions are normal. Pupils are equal, round, and reactive to light. Neck: Normal range of motion. Neck supple. Cardiovascular: Normal rate, regular rhythm and normal heart sounds. No murmur heard. Pulmonary/Chest: Effort normal and breath sounds normal. No respiratory distress . Abdominal: Soft. Bowel sounds are normal. No tenderness. Lymphadenopathy: She has no cervical adenopathy. Neurological: She is alert and oriented. No cranial nerve deficit. Skin: Skin is warm and dry. No rash noted. ASSESSMENT and PLAN: No diagnosis found. C DT documented in this encounter Plan of Treatment Not on filedocumented as of this encounter Visit Diagnoses Diagnosis Nausea with vomiting - Primary documented in this encounter"
--- OUTSIDE RECORDS SUMMARY | 2019-10-21 18:49 | XMS REPORT | Encounter Summary ---
Author Author [facility] Organization [facility] Address Unknown Phone Unavailable Care Team Providers Care Manager Of Sales Name Role Phone PCP Unavailable Encounter Details Care Team Description Date Type Department Conversion, History 02/07/2008 Orders Only HIS CONVERSION Social History Date [...] 4:27 AM CDT Electronically signed by Interface, [facility] [employer] Conv Transcriptions at 03/05/2008 4 :27 AM CDT documented in this encounter Plan of Treatment Not on filedocumented as of this encounter Visit Diagnoses Not on filedocumented in this encounter
--- OUTSIDE RECORDS SUMMARY | 2019-10-21 18:49 | XMS REPORT | Encounter Summary ---
Author Author [facility] Organization [facility] Address Unknown Phone Unavailable Care Team Providers Care Service Tech/Welder Name Role Phone PCP Unavailable Encounter Details Care Team Description Date Type Department Conversion, History 02/18/2008 Orders Only HIS CONVERSION Social History Date [...] Conv Transcriptions - 03/08/2008 6:37 PM CDT Electronically signed by Interface, [facility] [employer] Conv Transcriptions at 03/08/2008 6 :37 PM CDT * Interface, Rayray Gutierrez Conv Transcriptions - 03/05/2008 4:27 AM CDT Electronically signed by Interface, [facility] [employer] Conv Transcriptions at 03/05/2008 4 :27 AM CDT documented in this encounter Plan of Treatment Not on filedocumented as of this encounter Visit Diagnoses Not on filedocumented in this encounter
--- OUTSIDE RECORDS SUMMARY | 2019-10-21 18:49 | XMS REPORT | Encounter Summary ---
Author Author [facility] Organization [facility] Address Unknown Phone Unavailable Care Team Providers Care Stockroom Inventory Clerk Name Role Phone Phong Stephens MD PCP Unavailable Robby Rajan DIRECTOR OF CORPORATE STRATEGY Unavailable Phong Stephens MD PCP Unavailable Carlos Middleton PCP Lorraine Hathaway MD PCP [facility], External Provider PCP Unavailable Encounter Details Care Team Description Date Type Department Becka Watters, DIRECTOR OF CORPORATE STRATEGY [address] [place] [address] [facility] [address] [address] Social History Date Tobacco [...]
--- OUTSIDE RECORDS SUMMARY | 2019-10-21 18:49 | XMS REPORT | Encounter Summary ---
Author Author [facility] Organization [facility] Address Unknown Phone Unavailable Care Team Providers Care Travel Registered Nurse Pacu Name Role Phone PCP Unavailable Encounter Details Care Team Description Date Type Department Conversion, History 02/10/2008 Orders Only HIS CONVERSION Social History Date Tobacco Use Types Packs/Day Years Used Never Assessed Sex Assigned at Date Recorded Not on file Industry Job Start Date Occupation Not on file Not on file Not on file Travel End Travel History Travel Start No recent travel history available. documented as of this encounter Progress Notes * Interface, Rayray [employer] Conv Transcriptions - 03/11/2008 2:41 PM CDT Electronically signed by Interface, [facility] [place] Conv Transcriptions at 03/11/2008 2 :41 PM CDT * Interface, [facility] Conv Transcriptions - 03/05/2008 4:27 AM CDT Electronically signed by Interface, [facility] Conv Transcriptions at 03/05/2008 4 :27 AM CDT * Interface, [facility] Conv Transcriptions - 03/02/2008 8:34 PM CDT Electronically signed by Interface, [facility] Conv Transcriptions at 03/02/2008 8 :34 PM CDT documented in this encounter Plan of Treatment Not on filedocumented as of this encounter Visit Diagnoses Not on filedocumented in this encounter
--- OUTSIDE RECORDS SUMMARY | 2019-10-21 18:49 | XMS REPORT | Encounter Summary ---
Author Author [facility] Organization [facility] Address Unknown Phone Unavailable Care Team Providers Care Research Animal Facility Supervisor Name Role Phone PCP Unavailable Reason for Visit * Reason Comments Headache reports methadone not worki ng, up during night, x 4 day. ? increase methadone and wonders if still have sin us problem Encounter Details Care Team Description Date Type Department Maurice Durbin MD [address] [place] [address] Maxillary Sinusitis (Primary Dx) 03/23/2008 Office Visit [facility] [place] [address] [place] [address] Social History Date Tobacco Use [...] Reading Time Taken Comments Vital Sign 104/60 03/23/2008 2:55 PM CDT Blood Pressure 84 03/23/2008 2:55 PM CDT Pulse 36.9 C (98.4 F) 03/23/2008 2:55 PM CDT Temperature - - Respiratory Rate - - Oxygen Saturation - - Inhaled Oxygen Concentration - - Weight - - Height - - Body Mass Index documented in this encounter Progress Notes * Maurice Durbin MD - 03/23/2008 3:05 PM CDT SUBJECTIVE: Ayden Odom is a 37 y.o. female who complains of coryza, sore throat, swo llen glands, nasal blockage, post nasal drip, myalgias and headache for 21 days. She denies a history of anorexia, chills and cough and has a history of asthma. Patient does smoke cigarettes. OBJECTIVE: She appears well, vital signs are as noted. Ears normal. Throat and pharynx nor mal. Neck supple. No adenopathy in the neck. Nose is congested. Sinuses non ten dash. The chest is clear, without wheezes or rales. ASSESSMENT: sinusitis PLAN: Symptomatic therapy suggested: push fluids, rest and apply heat to sinuses prn. Lack of antibiotic effectiveness discussed with her. Call or return to clinic pr n if these symptoms worsen or fail to improve as anticipated.No increase in meth adone follow up documented in this encounter Plan of Treatment Not on filedocumented as of this encounter Visit Diagnoses Diagnosis Maxillary sinusitis - Primary Chronic maxillary sinusitis documented in this encounter
--- OUTSIDE RECORDS SUMMARY | 2019-10-21 18:49 | XMS REPORT | Encounter Summary ---
Author Author [facility] Organization [facility] Address Unknown Phone Unavailable Care Team Providers Care Starch Cooker Name Role Phone Phong Stephens MD PCP Unavailable Robby Rajan APRN Unavailable Phong Stephens MD PCP Unavailable Carlos Middleton PCP Lorraine Hathaway MD PCP [facility], External Provider PCP Unavailable Encounter Details Care Team Description Date Type Department Kashif Land PA [address] [place] [address] 02/28/[address] [address] Social History Date Tobacco Use [...]
--- OUTSIDE RECORDS SUMMARY | 2019-10-21 18:49 | XMS REPORT | Encounter Summary ---
Author Author [facility] Organization [facility] Address Unknown Phone Unavailable Care Team Providers Care Laboratory Machinist Name Role Phone Phong Stephens MD PCP Unavailable Robby Rajan APRN Unavailable Phong Stephens MD PCP Unavailable Carlos Middleton PCP Lorraine Hathaway MD PCP [facility], External Provider PCP Unavailable Encounter Details Care Team Description Date Type Department Phong Stephens MD NO ADDRESS ON FILE Joint Pain-Pelvis (Primary Dx) 02/04/2008 Outpatient [facility] Cons[facility] idated Historical [address] [address] Social History Date Tobacco Use Types Packs/Day Years Used Never Assessed Sex Assigned at Date Recorded Not on file Industry Job Start Date Occupation Not on file Not on file Not on file Travel End Travel History Travel Start No recent travel history available. documented as of this encounter Plan of Treatment Not on filedocumented as of this encounter Visit Diagnoses Diagnosis Joint pain-pelvis - Primary Pain in joint, pelvic region and thigh documented in this encounter
--- OUTSIDE RECORDS SUMMARY | 2019-10-21 18:50 | XMS REPORT | Encounter Summary ---
Author Author [facility] Organization [facility] Address Unknown Phone Unavailable Care Team Providers Care Signal Tower Director Name Role Phone PCP Unavailable Encounter Details Care Team Description Date Type Department Conversion, History 12/17/2007 Orders Only HIS CONVERSION Social History Date Tobacco Use Types Packs/Day Years Used Never Assessed Sex Assigned at Date Recorded Not on file Industry Job Start Date Occupation Not on file Not on file Not on file Travel End Travel History Travel Start No recent travel history available. documented as of this encounter Progress Notes * Rayray Elizalde Conv Transcriptions - 03/05/2008 4:25 AM CDT 4 :25 AM CDT documented in this encounter Plan of Treatment Not on filedocumented as of this encounter Visit Diagnoses Not on filedocumented in this encounter
--- OUTSIDE RECORDS SUMMARY | 2019-10-21 18:50 | XMS REPORT | Encounter Summary ---
Author Author [facility] Organization [facility] Address Unknown Phone Unavailable Care Team Providers Care Roast Master Name Role Phone PCP Unavailable Encounter Details Care Team Description Date Type Department Conversion, History 12/23/2007 Orders Only HIS CONVERSION Social History Date Tobacco Use Types Packs/Day Years Used Never Assessed Sex Assigned at Date Recorded Not on file Industry Job Start Date Occupation Not on file Not on file Not on file Travel End Travel History Travel Start No recent travel history available. documented as of this encounter Progress Notes * Rayray Elizalde Conv Transcriptions - 03/05/2008 4:26 AM CDT 4 :26 AM CDT documented in this encounter Plan of Treatment Not on filedocumented as of this encounter Visit Diagnoses Not on filedocumented in this encounter
--- OUTSIDE RECORDS SUMMARY | 2019-10-21 18:50 | XMS REPORT | Encounter Summary ---
Author Author [facility] Organization [facility] Address Unknown Phone Unavailable Care Team Providers Care Pump Installation And Servicer Name Role Phone Phong Stephens MD PCP Unavailable Robby Rajan APRN Unavailable Phong Stephens MD PCP Unavailable Carlos Middleton PCP Lorraine Hathaway MD PCP [facility], External Provider PCP Unavailable Encounter Details Care Team Description Date Type Department Maurice Durbin MD [address] [place] [phone] Lumbago (Primary Dx) 01/02/2008 Outpatient [facility] Historical [address] [place] [address] Social History Date Tobacco Use Types Packs/Day [...]
--- OUTSIDE RECORDS SUMMARY | 2019-10-21 18:50 | XMS REPORT | Encounter Summary ---
Author Author [facility] Organization [facility] Address Unknown Phone Unavailable Care Team Providers Care Managed Care Provider Name Role Phone Phong Stephens MD PCP Unavailable Robby Rajan APRN Unavailable Phong Stephens MD PCP Unavailable Carlos Middleton PCP Lorraine Hathaway MD PCP [facility], External Provider PCP Unavailable Encounter Details Care Team Description Date Type Department Julia Land MD [address] [place] [address] Lumbago (Primary Dx) 12/18/2007 Outpatient [facility] [address] [address] [address] Social History Date Tobacco Use Types Packs/Day [...]
--- OUTSIDE RECORDS SUMMARY | 2019-10-21 18:50 | XMS REPORT | Encounter Summary ---
Author Author [facility] Organization [facility] Address Unknown Phone Unavailable Care Team Providers Care Professor Of Communication And Writing Name Role Phone Phong Stephens MD PCP Unavailable Robby Rajan FIELD CROP HARVEST WORKER Unavailable Phong Stephens MD PCP Unavailable Carlos Middleton PCP Lorraine Hathaway MD PCP [facility], External Provider PCP Unavailable Encounter Details Care Team Description Date Type Department Becka Watters, FIELD CROP HARVEST WORKER [address] [place] [address] Unspecified Migraine without Mention of Intractable Migraine (Primary Dx) 12/07/[address] [address] Social History Date Tobacco Use [...] without mention of status migrainosus - Primary documented in this encounter
--- OUTSIDE RECORDS SUMMARY | 2019-10-21 18:50 | XMS REPORT | Encounter Summary ---
Author Author [facility] Organization [facility] Address Unknown Phone Unavailable Care Team Providers Care Data Recovery Planner Name Role Phone PCP Unavailable Encounter Details Care Team Description Date Type Department Conversion, History 12/29/2007 Orders Only HIS CONVERSION Social History Date Tobacco Use Types Packs/Day Years Used Never Assessed Sex Assigned at Date Recorded Not on file Industry Job Start Date Occupation Not on file Not on file Not on file Travel End Travel History Travel Start No recent travel history available. documented as of this encounter Progress Notes * Rayray Elizalde Conv Transcriptions - 03/05/2008 4:20 AM CDT 4 :20 AM CDT documented in this encounter Plan of Treatment Not on filedocumented as of this encounter Visit Diagnoses Not on filedocumented in this encounter
--- OUTSIDE RECORDS SUMMARY | 2019-10-21 18:50 | XMS REPORT | Encounter Summary ---
Author Author [facility] Organization [facility] Address Unknown Phone Unavailable Care Team Providers Care Manager Highway Name Role Phone PCP Unavailable Encounter Details Care Team Description Date Type Department Conversion, History 12/30/2007 Orders Only HIS CONVERSION Social History Date [...]
--- OUTSIDE RECORDS SUMMARY | 2019-10-21 18:50 | XMS REPORT | Encounter Summary ---
Author Author [facility] Organization [facility] Address Unknown Phone Unavailable Care Team Providers Care Polygraph Examiner Name Role Phone Phong Stephens MD PCP Unavailable Robby Rajan APRN Unavailable Phong Stephens MD PCP Unavailable Carlos Middleton PCP Lorraine Hathaway MD PCP [facility], External Provider PCP Unavailable Encounter Details Care Team Description Date Type Department Reggie Ramirez MD NO ADDRESS ON FILE Cellulitis of Foot (Primary Dx) 12/12/2007 Outpatient [facility] Consol idated Historical [address] [address] Social History Date Tobacco Use Types Packs/Day Years Used Never Assessed Sex Assigned at Date Recorded Not on file Industry Job Start Date Occupation Not on file Not on file Not on file Travel End Travel History Travel Start No recent travel history available. documented as of this encounter Plan of Treatment Not on filedocumented as of this encounter Visit Diagnoses Diagnosis Cellulitis of foot - Primary Cellulitis and abscess of foot, except toes documented in this encounter
--- OUTSIDE RECORDS SUMMARY | 2019-10-21 18:50 | XMS REPORT | Encounter Summary ---
Author Author [facility] Organization [facility] Address Unknown Phone Unavailable Care Team Providers Care Forging Die Sinker Name Role Phone PCP Unavailable Encounter Details Care Team Description Date Type Department Conversion, History 12/09/2007 Orders Only HIS CONVERSION Social History Date [...]
--- OUTSIDE RECORDS SUMMARY | 2019-10-21 18:50 | XMS REPORT | Encounter Summary ---
Author Author [facility] Organization [facility] Address Unknown Phone Unavailable Care Team Providers Care Team Driver Name Role Phone PCP Unavailable Encounter Details Care Team Description Date Type Department Conversion, History 12/18/2007 Orders Only HIS CONVERSION Social History Date [...]
--- OUTSIDE RECORDS SUMMARY | 2019-10-21 18:50 | XMS REPORT | Encounter Summary ---
Author Author [facility] Organization [facility] Address Unknown Phone Unavailable Care Team Providers Care Roofer Helper Vinyl Coating Name Role Phone Phong Stephens MD PCP Unavailable Robby Rajan APRN Unavailable Phong Stephens MD PCP Unavailable Carlos Middleton PCP Lorraine Hathaway MD PCP [facility], External Provider PCP Unavailable Encounter Details Care Team Description Date Type Department Maurice Durbin MD [address] [place] [phone] Unspecified Backache (Primary Dx) 12/30/2007 Outpatient [facility] [address] [facility] Historical MEDICAID Social History Date Tobacco Use [...] Procedure Name Priority Date/Time Associated Diag nosis COMPREHENSIVE METABOLIC Routine 12/30/2007 PANEL 9:31 AM CDT documented in this encounter Results * COMPREHENSIVE METABOLIC PANEL (12/30/2007 9:31 AM CDT) GLUCOSE 98 70 - 110 mg/dl INTERFACE SYSTEM BUN 19.0 7 - 20 mg/dl INTERFACE SYSTEM CREATININE 0.8 0.6 - 1.0 mg/dl INTERFACE SYSTEM BUN/CREAT RATIO 23.8 (H) 10 - 20 INTERFACE SYSTEM GFR 87 >90 ml/min INTERFACE SYSTEM SODIUM 140 135 - 145 mmol/L INTERFACE SYSTEM POTASSIUM 3.9 3.3 - 4.8 mmol/L INTERFACE SYSTEM CHLORIDE 108 (H) 98 - 107 mmol/L INTERFACE SYSTEM CO2 22.3 22 - 31 mmol/L INTERFACE SYSTEM ANION GAP 14 4 - 20 INTERFACE SYSTEM CALCIUM 8.8 8.5 - 10.1 mg/dl INTERFACE SYSTEM ALBUMIN 3.7 3.4 - 5.0 g/dl INTERFACE SYSTEM TOTAL PROTEIN 7.3 6.4 - 8.2 g/dl INTERFACE SYSTEM GLOBULIN (CALC) 3.6 INTERFACE SYSTEM ALBUMIN/GLOBULI 1.0 INTERFACE N RATIO SYSTEM BILIRUBIN TOTAL 0.4 <1.1 mg/dl INTERFACE SYSTEM ALKALINE 129 50 - 136 IU/L INTERFACE PHOSPHATASE SYSTEM AST 12 10 - 40 IU/L INTERFACE SYSTEM ALT 44 25 - 70 IU/L INTERFACE SYSTEM Specimen Performing Organization Address City/State/Zipcode Ph one Number INTERFACE SYSTEM INTERFACE SYSTEM Refer to clinic/hospital department documented in this encounter Visit Diagnoses Diagnosis Backache, unspecified - Primary documented in this encounter
--- OUTSIDE RECORDS SUMMARY | 2019-10-21 18:50 | XMS REPORT | Encounter Summary ---
Author Author [facility] Organization [facility] Address Unknown Phone Unavailable Care Team Providers Care Product Representative Name Role Phone Phong Stephens MD PCP Unavailable Robby Rajan APRN Unavailable Phong Stephens MD PCP Unavailable Carlos Middleton PCP Lorraine Hathaway MD PCP [facility], External Provider PCP Unavailable Encounter Details Care Team Description Date Type Department Maurice Durbin MD [address] [place] [address] Unspecified Backache (Primary Dx) 12/23/2007 Outpatient [facility] Consol idated Historical [facility] [address] [place] [address] Social History Date Tobacco Use Types Packs/Day [...]
--- OUTSIDE RECORDS SUMMARY | 2019-10-21 18:50 | XMS REPORT | Encounter Summary ---
Author Author [facility] Organization [facility] Address Unknown Phone Unavailable Care Team Providers Care Senior Major Gifts Officer Name Role Phone PCP Unavailable Encounter Details Care Team Description Date Type Department Conversion, History 12/07/2007 Orders Only HIS CONVERSION Social History Date [...]
--- OUTSIDE RECORDS SUMMARY | 2019-10-21 18:50 | XMS REPORT | Encounter Summary ---
Author Author [facility] Organization [facility] Address Unknown Phone Unavailable Care Team Providers Care Precinct I Police Sergeant Name Role Phone PCP Unavailable Encounter Details Care Team Description Date Type Department Conversion, History 12/15/2007 Orders Only HIS CONVERSION Social History Date Tobacco Use Types Packs/Day Years Used Never Assessed Sex Assigned at Date Recorded Not on file Industry Job Start Date Occupation Not on file Not on file Not on file Travel End Travel History Travel Start No recent travel history available. documented as of this encounter Progress Notes * Rayray Elizalde Conv Transcriptions - 03/05/2008 4:19 AM CDT 4 :19 AM CDT documented in this encounter Plan of Treatment Not on filedocumented as of this encounter Visit Diagnoses Not on filedocumented in this encounter
--- OUTSIDE RECORDS SUMMARY | 2019-10-21 18:50 | XMS REPORT | Encounter Summary ---
Author Author [facility] Organization [facility] Address Unknown Phone Unavailable Care Team Providers Care Shingle Shearing Machine Operator Name Role Phone Phong Stephens MD PCP Unavailable Robby Rajan APRN Unavailable Phong Stephens MD PCP Unavailable Carlos Middleton PCP Lorraine Hathaway MD PCP Mhcf, External Provider PCP Unavailable Encounter Details Care Team Description Date Type Department Maurice Durbin MD [address] [place] [address] Unspecified Backache (Primary Dx) 12/23/2007 Outpatient [facility] Surgery [place] [address] [place] [address] Social History Date Tobacco Use [...] Priority Date/Time Associated Diag nosis PROTIME-INR Routine 12/25/2007 5:00 AM CDT CBC WITHOUT DIFFERENTIAL Routine 12/25/2007 5:00 AM CDT COMPREHENSIVE METABOLIC Routine 12/25/2007 PANEL 5:00 AM CDT CBC WITHOUT DIFFERENTIAL Routine 12/24/2007 9:50 AM CDT COMPREHENSIVE METABOLIC Routine 12/24/2007 PANEL 9:50 AM CDT DRUG SCREEN, URINE Routine 12/23/2007 URINALYSIS W/REFLEX Routine 12/23/2007 MICROSCOPIC documented in this encounter Results * CBC WITHOUT DIFFERENTIAL (12/25/2007 5:00 AM CDT) WBC 10.35 3.0 - 10.4 x10E3 INTERFACE SYSTEM RBC 4.18 3.77 - 4.97 x10E6 INTERFACE SYSTEM HEMOGLOBIN 12.9 11.9 - 15.0 g/dL INTERFACE SYSTEM HEMATOCRIT 39.0 34.4 - 43.6 % INTERFACE SYSTEM MCV 93.3 79 - 100 fL INTERFACE SYSTEM MCH 30.9 28 - 34 pg INTERFACE SYSTEM MCHC 33.1 33 - 36 g/dL INTERFACE SYSTEM RDW 13.4 11.5 - 15.1 % INTERFACE SYSTEM PLATELETS 194 148 - 408 x10E3 INTERFACE SYSTEM MPV 8.4 7.4 - 10.6 fL INTERFACE SYSTEM Specimen Performing Organization Address City/[facility] Ph one Number INTERFACE SYSTEM INTERFACE SYSTEM Refer to clinic/hospital department * PROTIME-INR (12/25/2007 5:00 AM CDT) PROTIME 12.8 (H) 9.5 - 11.5 Sec INTERFACE SYSTEM INR 1.23 (L) 2.0 - 3.0 INTERFACE SYSTEM Specimen Performing Organization Address [facility] Ph one Number INTERFACE SYSTEM INTERFACE SYSTEM Refer to clinic/hospital department * COMPREHENSIVE METABOLIC PANEL (12/25/2007 5:00 AM CDT) GLUCOSE 112 (H) 70 - 110 mg/dl INTERFACE SYSTEM BUN 15.0 7 - 20 mg/dl INTERFACE SYSTEM CREATININE 0.9 0.6 - 1.0 mg/dl INTERFACE SYSTEM BUN/CREAT RATIO 16.7 10 - 20 INTERFACE SYSTEM GFR 76 >90 ml/min INTERFACE SYSTEM GFR - CG 169 >90 ml/min INTERFACE FORMULA SYSTEM SODIUM 139 135 - 145 mmol/L INTERFACE SYSTEM POTASSIUM 4.0 3.3 - 4.8 mmol/L INTERFACE SYSTEM CHLORIDE 107 98 - 107 mmol/L INTERFACE SYSTEM CO2 24.5 22 - 31 mmol/L INTERFACE SYSTEM ANION GAP 12 4 - 20 INTERFACE SYSTEM CALCIUM 8.8 8.5 - 10.1 mg/dl INTERFACE SYSTEM ALBUMIN 3.1 (L) 3.4 - 5.0 g/dl INTERFACE SYSTEM TOTAL PROTEIN 6.6 6.4 - 8.2 g/dl INTERFACE SYSTEM GLOBULIN (CALC) 3.5 INTERFACE SYSTEM ALBUMIN/GLOBULI 0.9 INTERFACE N RATIO SYSTEM BILIRUBIN TOTAL 0.2 <1.1 mg/dl INTERFACE SYSTEM ALKALINE 131 50 - 136 IU/L INTERFACE PHOSPHATASE SYSTEM AST 21 10 - 40 IU/L INTERFACE SYSTEM ALT 39 25 - 70 IU/L INTERFACE SYSTEM Specimen Performing Organization Address [facility] Ph one Number INTERFACE SYSTEM INTERFACE SYSTEM Refer to clinic/hospital department * CBC WITHOUT DIFFERENTIAL (12/24/2007 9:50 AM CDT) WBC 9.40 3.0 - 10.4 x10E3 INTERFACE SYSTEM RBC 4.48 3.77 - 4.97 x10E6 INTERFACE SYSTEM HEMOGLOBIN 13.8 11.9 - 15.0 g/dL INTERFACE SYSTEM HEMATOCRIT 42.6 34.4 - 43.6 % INTERFACE SYSTEM MCV 95.1 79 - 100 fL INTERFACE SYSTEM MCH 30.8 28 - 34 pg INTERFACE SYSTEM MCHC 32.4 (L) 33 - 36 g/dL INTERFACE SYSTEM RDW 13.5 11.5 - 15.1 % INTERFACE SYSTEM PLATELETS 169 148 - 408 x10E3 INTERFACE SYSTEM MPV 7.8 7.4 - 10.6 fL INTERFACE SYSTEM Specimen Performing Organization Address [facility] one Number INTERFACE SYSTEM INTERFACE SYSTEM Refer to clinic/hospital department * COMPREHENSIVE METABOLIC PANEL (12/24/2007 9:50 AM CDT) GLUCOSE 97 70 - 110 mg/dl INTERFACE SYSTEM BUN 14.0 7 - 20 mg/dl INTERFACE SYSTEM CREATININE 0.9 0.6 - 1.0 mg/dl INTERFACE SYSTEM BUN/CREAT RATIO 15.6 10 - 20 INTERFACE SYSTEM GFR 76 >90 ml/min INTERFACE SYSTEM GFR - CG 169 >90 ml/min INTERFACE FORMULA SYSTEM SODIUM 138 135 - 145 mmol/L INTERFACE SYSTEM POTASSIUM 4.3 3.3 - 4.8 mmol/L INTERFACE SYSTEM CHLORIDE 107 98 - 107 mmol/L INTERFACE SYSTEM CO2 21.8 (L) 22 - 31 mmol/L INTERFACE SYSTEM ANION GAP 14 4 - 20 INTERFACE SYSTEM CALCIUM 9.0 8.5 - 10.1 mg/dl INTERFACE SYSTEM ALBUMIN 3.2 (L) 3.4 - 5.0 g/dl INTERFACE SYSTEM TOTAL PROTEIN 6.7 6.4 - 8.2 g/dl INTERFACE SYSTEM GLOBULIN (CALC) 3.5 INTERFACE SYSTEM ALBUMIN/GLOBULI 0.9 INTERFACE N RATIO SYSTEM BILIRUBIN TOTAL 0.2 <1.1 mg/dl INTERFACE SYSTEM ALKALINE 138 (H) 50 - 136 IU/L INTERFACE PHOSPHATASE SYSTEM AST 33 10 - 40 IU/L INTERFACE SYSTEM ALT 48 25 - 70 IU/L INTERFACE SYSTEM Specimen Performing Organization Address [facility] one Number INTERFACE SYSTEM INTERFACE SYSTEM Refer to clinic/hospital department * URINALYSIS (12/23/2007) GLUCOSE UA Negative Negative mg/dl INTERFACE SYSTEM BILIRUBIN UA Negative Negative INTERFACE SYSTEM KETONES UA Negative Negative mg/dl INTERFACE SYSTEM SPECIFIC 1.015 INTERFACE GRAVITY UA SYSTEM PH UA 7.5 INTERFACE SYSTEM PROTEIN UA Negative Negative mg/dl INTERFACE SYSTEM UROBILINOGEN UA 0.2 0.2 - 1.0 EU/dl INTERFACE SYSTEM NITRITE UA Negative Negative INTERFACE SYSTEM BLOOD UA Trace (H) Negative INTERFACE SYSTEM LEUKOCYTE Negative Negative INTERFACE ESTERASE UA SYSTEM WBC UA 0-5 0 - 5 /HPF INTERFACE SYSTEM RBC UA 3-5 0 - 5 /HPF INTERFACE SYSTEM EPITHELIAL 1+ sq INTERFACE CELLS, URINE SYSTEM WBC CLUMPS Neg Negative /LPF INTERFACE SYSTEM CASTS, URINE Neg 0-4 Hyaline /LPF INTERFACE SYSTEM CRYSTALS, URINE Neg INTERFACE SYSTEM BACTERIA UA 1+ NEG INTERFACE SYSTEM Specimen Performing Organization Address [facility] one Number INTERFACE SYSTEM INTERFACE SYSTEM Refer to clinic/hospital department * DRUG SCREEN, URINE (12/23/2007) AMPHETAMINE Negative INTERFACE QUAL, URINE SYSTEM BARBITURATE Negative INTERFACE QUAL, URINE SYSTEM BENZODIAZEPINE Negative INTERFACE QUAL, URINE SYSTEM COCAINE METAB Negative INTERFACE QUAL URINE SYSTEM CANNABINOIDS Negative INTERFACE QUAL, URINE SYSTEM METHAMPHETAMINE Negative INTERFACE QUAL, URINE SYSTEM METHADONE QUAL, Negative INTERFACE URINE SYSTEM OPIATE QUAL, Positive (H) INTERFACE URINE SYSTEM PROPOXYPHENE Positive (H) INTERFACE QUAL, URINE SYSTEM TRICYCLICS Positive (H) INTERFACE QUAL, URINE Comment: SYSTEM Chain of Custody Handling was not performed on this specimen. This screen will not meet medical-legal requirements. CUTOFF LIMITS Amphetamines 1000 ng/ml Barbiturates 200 ng/ml Benzodiazepines 300 ng/ml Cocaine metabolite 300 ng/ml Marijuana metabolites 50 ng/ml Methamphetamine 1000 ng/ml Methadone 300 ng/ml Opiates 300 ng/ml Propoxyphene 300 ng/nl Tricyclic Antidepressants 300 ng/ml Specimen Performing Organization Address City/State/[facility] Ph one Number INTERFACE SYSTEM INTERFACE SYSTEM Refer to clinic/hospital department documented in this encounter Visit Diagnoses Diagnosis Backache, unspecified - Primary documented in this encounter
--- OUTSIDE RECORDS SUMMARY | 2019-10-21 18:50 | XMS REPORT | Encounter Summary ---
Author Author [facility] Organization [facility] Address Unknown Phone Unavailable Care Team Providers Care Casting Supervisor Name Role Phone Phong Stephens MD PCP Unavailable Robby Rajan APRN Unavailable Phong Stephens MD PCP Unavailable Carlos Middleton PCP Lorraine Hathaway MD PCP Mhcf, External Provider PCP Unavailable Encounter Details Care Team Description Date Type Department Reggie Ramirez MD NO ADDRESS ON FILE Lumbago (Primary Dx) 12/17/2007 Outpatient [facility] Consol idated [address] [address] Social History Date Tobacco Use Types Packs/Day [...]
--- OUTSIDE RECORDS SUMMARY | 2019-10-21 18:50 | XMS REPORT | Encounter Summary ---
Author Author [facility] Organization [facility] Address Unknown Phone Unavailable Care Team Providers Care Community Education Specialist Name Role Phone Phong Stephens MD PCP Unavailable Robby Rajan ACADEMIC RECORDS SPECIALIST Unavailable Phong Stephens MD PCP Unavailable Carlos Middleton PCP Lorraine Hathaway MD PCP Mhcf, External Provider PCP Unavailable Encounter Details Care Team Description Date Type Department Becka Watters, ACADEMIC RECORDS SPECIALIST [address] [place] [address] Injury, Other and Unspecified, Elbow, Fo rearm, and Wrist (Primary Dx) 01/28/2008 Outpatient [facility] Imaging [address] [address] Social History Date Tobacco Use [...] as of this encounter Visit Diagnoses Diagnosis Injury, other and unspecified, elbow, f orearm, and wrist - Primary documented in this encounter
--- OUTSIDE RECORDS SUMMARY | 2019-10-21 18:50 | XMS REPORT | Encounter Summary ---
Author Author [facility] Organization [facility] Address Unknown Phone Unavailable Care Team Providers Care Clinical Trainer Name Role Phone PCP Unavailable Encounter Details Care Team Description Date Type Department Conversion, History 01/28/2008 Orders Only HIS CONVERSION Social History Date Tobacco Use Types Packs/Day Years Used Never Assessed Sex Assigned at Date Recorded Not on file Industry Job Start Date Occupation Not on file Not on file Not on file Travel End Travel History Travel Start No recent travel history available. documented as of this encounter Progress Notes * Interface, [facility] [employer] Conv Transcriptions - 03/08/2008 6:36 PM CDT Electronically signed by Interface, [facility] [employer] Conv Transcriptions at 03/08/2008 6 :36 PM CDT * Interface, [facility] [employer] Conv Transcriptions - 03/05/2008 4:26 AM CDT Electronically signed by Interface, [facility] [employer] Conv Transcriptions at 03/05/2008 4 :26 AM CDT * Interface, [facility] [employer] Conv Transcriptions - 03/02/2008 8:34 PM CDT Electronically signed by Interface, [facility] [employer] Conv Transcriptions at 03/02/2008 8 :34 PM CDT documented in this encounter Plan of Treatment Not on filedocumented as of this encounter Visit Diagnoses Not on filedocumented in this encounter
--- OUTSIDE RECORDS SUMMARY | 2019-10-21 18:50 | XMS REPORT | Encounter Summary ---
Author Author [facility] Organization [facility] Address Unknown Phone Unavailable Care Team Providers Care Viticulturist Name Role Phone PCP Unavailable Encounter Details Care Team Description Date Type Department Provider, Abstract 12/30/2007 Abstract [facility] ABSTRACTION Social History Date Tobacco Use Types Packs/Day Years Used Never Assessed Sex Assigned at Date Recorded Not on file Industry Job Start Date Occupation Not on file Not on file Not on file Travel End Travel History Travel Start No recent travel history available. documented as of this encounter Last Filed Vital Signs Reading Time Taken Comments Vital Sign 98/66 12/30/2007 9:23 AM CDT Blood Pressure 70 12/30/2007 9:23 AM CDT Pulse - - Temperature - - Respiratory Rate - - Oxygen Saturation - - Inhaled Oxygen Concentration - - Weight - - Height - - Body Mass Index documented in this encounter Plan of Treatment Not on filedocumented as of this encounter Visit Diagnoses Not on filedocumented in this encounter
--- OUTSIDE RECORDS SUMMARY | 2019-10-21 18:50 | XMS REPORT | Encounter Summary ---
Author Author [facility] Organization [facility] Address Unknown Phone Unavailable Care Team Providers Care Electric Shaver Mechanic Name Role Phone Phong Stephens MD PCP Unavailable Robby Rajan APRN Unavailable Phong Stephens MD PCP Unavailable Carlos Middleton PCP Lorraine Hathaway MD PCP Mhcf, External Provider PCP Unavailable Encounter Details Care Team Description Date Type Department Maurice Durbin MD [address] [place] [address] Unspecified Backache (Primary Dx) 12/30/2007 Outpatient [facility] Consol idated Historical [facility] [address] [place] [address] Social History Date Tobacco Use Types Packs/Day [...]
--- OUTSIDE RECORDS SUMMARY | 2019-10-21 18:50 | XMS REPORT | Encounter Summary ---
Author Author [facility] Organization [facility] Address Unknown Phone Unavailable Care Team Providers Care Inside Outside Sales Representative Name Role Phone Phong Stephens MD PCP Unavailable Robby Rajan NEEDLE MAKER Unavailable Phong Stephens MD PCP Unavailable Carlos Middleton PCP Lorraine Hathaway MD PCP Mhcf, External Provider PCP Unavailable Encounter Details Care Team Description Date Type Department Yina, Emy Floyd APRN NO ADDRESS ON FILE Open Wound of Foot (Primary Dx) 12/09/[address] [address] Social History Date Tobacco Use [...] as of this encounter Visit Diagnoses Diagnosis Open wound of foot except toe(s) alone, without mention of complication - Primary documented in this encounter
--- OUTSIDE RECORDS SUMMARY | 2019-10-21 18:50 | XMS REPORT | Encounter Summary ---
Author Author [facility] Organization [facility] Address Unknown Phone Unavailable Care Team Providers Care Head Neck Surgeon Name Role Phone Phong Stephens MD PCP Unavailable Robby Rajan APRN Unavailable Phong Stephens MD PCP Unavailable Carlos Middleton PCP Lorraine Hathaway MD PCP Mhcf, External Provider PCP Unavailable Encounter Details Care Team Description Date Type Department Jr Yemi Nunn DO [address] [place] [id number] Lumbago (Primary Dx) 12/15/2007 Emergency [facility] Emergency Department [address] [address] Social History Date Tobacco Use [...]
--- OUTSIDE RECORDS SUMMARY | 2019-10-21 18:50 | XMS REPORT | Encounter Summary ---
Author Author [facility] Organization [facility] Address Unknown Phone Unavailable Care Team Providers Care Health Plan Advisor Name Role Phone Phong Stephens MD PCP Unavailable Robby Rajan APRN Unavailable Phong Stephens MD PCP Unavailable Carlos Middleton PCP Lorraine Hathaway MD PCP Mhcf, External Provider PCP Unavailable Encounter Details Care Team Description Date Type Department Maurice Durbin MD [address] [place] [phone] Encounter for Long-Term (Current) Use of Anticoagulants (Primary Dx) 01/24/2008 Outpatient [facility] [facility] Historical MEDICAID Social History Date Tobacco Use [...] Priority Date/Time Associated Diag nosis PROTIME-INR Routine 01/24/2008 11:48 AM CDT documented in this encounter Results * PROTIME-INR (01/24/2008 11:48 AM CDT) PROTIME 13.8 (H) 9.5 - 11.5 Sec INTERFACE SYSTEM INR 1.34 (L) 2.0 - 3.0 INTERFACE SYSTEM Specimen Performing Organization Address City/State/Zipcode Ph one Number INTERFACE SYSTEM INTERFACE SYSTEM Refer to clinic/hospital department documented in this encounter Visit Diagnoses Diagnosis 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
--- OUTSIDE RECORDS SUMMARY | 2019-10-21 18:50 | XMS REPORT | Encounter Summary ---
Author Author [facility] Organization [facility] Address Unknown Phone Unavailable Care Team Providers Care Family Practice Doctor Name Role Phone PCP Unavailable Encounter Details Care Team Description Date Type Department Conversion, History 12/12/2007 Orders Only HIS CONVERSION Social History Date [...]
--- OUTSIDE RECORDS SUMMARY | 2019-10-21 18:50 | XMS REPORT | Encounter Summary ---
Author Author [facility] Organization [facility] Address Unknown Phone Unavailable Care Team Providers Care Chorus Master Name Role Phone Phong Stephens MD PCP Unavailable Robby Rajan APRN Unavailable Phong Stephens MD PCP Unavailable Carlos Middleton PCP Lorraine Hathaway MD PCP Mhcf, External Provider PCP Unavailable Encounter Details Care Team Description Date Type Department Kalyan Cruz ARNP [address] [place] [address] [place] Other Device/Graft (Primary Dx) 12/29/2007 Emergency [facility] Emergency Department [address] [address] Social History Date Tobacco [...] Visit Diagnoses Diagnosis Mechanical complication due to other im plant and internal device, not elsewhere classified - Primary documented in this encounter
--- OUTSIDE RECORDS SUMMARY | 2019-10-21 18:50 | XMS REPORT | Encounter Summary ---
Author Author [facility] Organization [facility] Address Unknown Phone Unavailable Care Team Providers Care Clearance Representative Name Role Phone Phong Stephens MD PCP Unavailable Robby Rajan PORTABLE FEED MILL OPERATOR Unavailable Phong Stephens MD PCP Unavailable Carlos Middleton PCP Lorraine Hathaway MD PCP Mhcf, External Provider PCP Unavailable Encounter Details Care Team Description Date Type Department Becka Watters, PORTABLE FEED MILL OPERATOR [address] [place] [address] Joint Pain-Forearm (Primary Dx) 01/28/[address] [address] Social History Date Tobacco [...] of this encounter Visit Diagnoses Diagnosis Joint pain-forearm - Primary Pain in joint, forearm documented in this encounter
--- OUTSIDE RECORDS SUMMARY | 2019-10-21 18:51 | XMS REPORT | Encounter Summary ---
Author Author [facility] Organization [facility] Address Unknown Phone Unavailable Care Team Providers Care Manager Customs Name Role Phone PCP Unavailable Encounter Details Care Team Description Date Type Department Provider, Abstract 10/18/2007 Abstract AOK ABSTRACTION Social History Date Tobacco Use Types Packs/Day Years Used Never Assessed Sex Assigned at Date Recorded Not on file Industry Job Start Date Occupation Not on file Not on file Not on file Travel End Travel History Travel Start No recent travel history available. documented as of this encounter Last Filed Vital Signs Reading Time Taken Comments Vital Sign 102/70 10/18/2007 1:40 PM CDT Blood Pressure - - Pulse - - Temperature - - Respiratory Rate - - Oxygen Saturation - - Inhaled Oxygen Concentration - - Weight - - Height - - Body Mass Index documented in this encounter Plan of Treatment Not on filedocumented as of this encounter Visit Diagnoses Not on filedocumented in this encounter
--- OUTSIDE RECORDS SUMMARY | 2019-10-21 18:51 | XMS REPORT | Encounter Summary ---
Author Author [facility] Organization [facility] Address Unknown Phone Unavailable Care Team Providers Care Proofer Name Role Phone PCP Unavailable Encounter Details Care Team Description Date Type Department Provider, Abstract 11/15/2007 Abstract AOK ABSTRACTION Social History Date Tobacco Use Types Packs/Day Years Used Never Assessed Sex Assigned at Date Recorded Not on file Industry Job Start Date Occupation Not on file Not on file Not on file Travel End Travel History Travel Start No recent travel history available. documented as of this encounter Last Filed Vital Signs Reading Time Taken Comments Vital Sign 108/68 11/15/2007 4:00 PM CDT Blood Pressure 110 11/15/2007 4:00 PM CDT Pulse - - Temperature - - Respiratory Rate - - Oxygen Saturation - - Inhaled Oxygen Concentration - - Weight - - Height - - Body Mass Index documented in this encounter Plan of Treatment Not on filedocumented as of this encounter Visit Diagnoses Not on filedocumented in this encounter
--- OUTSIDE RECORDS SUMMARY | 2019-10-21 18:51 | XMS REPORT | Encounter Summary ---
Author Author [facility] Organization [facility] Address Unknown Phone Unavailable Care Team Providers Care Tug Boat Engineer Name Role Phone PCP Unavailable Encounter Details Care Team Description Date Type Department Provider, Abstract 10/24/2007 Abstract AOK ABSTRACTION Social History Date Tobacco Use Types Packs/Day Years Used Never Assessed Sex Assigned at Date Recorded Not on file Industry Job Start Date Occupation Not on file Not on file Not on file Travel End Travel History Travel Start No recent travel history available. documented as of this encounter Last Filed Vital Signs Reading Time Taken Comments Vital Sign 96/48 10/24/2007 8:22 AM CDT Blood Pressure 82 10/24/2007 8:22 AM CDT Pulse - - Temperature - - Respiratory Rate - - Oxygen Saturation - - Inhaled Oxygen Concentration - - Weight - - Height - - Body Mass Index documented in this encounter Plan of Treatment Not on filedocumented as of this encounter Visit Diagnoses Not on filedocumented in this encounter
--- OUTSIDE RECORDS SUMMARY | 2019-10-21 18:51 | XMS REPORT | Encounter Summary ---
Author Author [facility] Organization [facility] Address Unknown Phone Unavailable Care Team Providers Care Meat Seafood Associate Name Role Phone PCP Unavailable Encounter Details Care Team Description Date Type Department Conversion, History 10/05/2007 Orders Only HIS CONVERSION Social History Date Tobacco Use Types Packs/Day Years Used Never Assessed Sex Assigned at Date Recorded Not on file Industry Job Start Date Occupation Not on file Not on file Not on file Travel End Travel History Travel Start No recent travel history available. documented as of this encounter Progress Notes * Rayray Elizalde Conv Transcriptions - 03/05/2008 4:23 AM CDT 4 :23 AM CDT documented in this encounter Plan of Treatment Not on filedocumented as of this encounter Visit Diagnoses Not on filedocumented in this encounter
--- OUTSIDE RECORDS SUMMARY | 2019-10-21 18:51 | XMS REPORT | Encounter Summary ---
Author Author [facility] Organization [facility] Address Unknown Phone Unavailable Care Team Providers Care Mental Health Professional Name Role Phone Phong Stephens MD PCP Unavailable Robby Rajan APRN Unavailable Phong Stephens MD PCP Unavailable Carlos Middleton PCP Lorraine Hathaway MD PCP Mhcf, External Provider PCP Unavailable Encounter Details Care Team Description Date Type Department Maurice Durbin MD [address] [place] [address] Unspecified Backache (Primary Dx) 10/24/2007 Outpatient [facility] Consol idated Historical [facility] [address] [place] [address] Social History Date Tobacco Use Types Packs/Day [...]
--- OUTSIDE RECORDS SUMMARY | 2019-10-21 18:51 | XMS REPORT | Encounter Summary ---
Author Author [facility] Organization [facility] Address Unknown Phone Unavailable Care Team Providers Care Table Games Floor Supervisor Name Role Phone Phong Stephens MD PCP Unavailable Robby Rajan APRN Unavailable Phong Stephens MD PCP Unavailable Carlos Middleton PCP Lorraine Hathaway MD PCP Mhcf, External Provider PCP Unavailable Encounter Details Care Team Description Date Type Department Kalyan Cruz ARNP [address] [place] [address] Pain in Limb (Primary Dx) 11/30/2007 [facility] [address] [address] Social History Date Tobacco Use [...]
--- OUTSIDE RECORDS SUMMARY | 2019-10-21 18:51 | XMS REPORT | Encounter Summary ---
Author Author [facility] Organization [facility] Address Unknown Phone Unavailable Care Team Providers Care Fbi Field Agent Name Role Phone PCP Unavailable Encounter Details Care Team Description Date Type Department Conversion, History 10/01/2007 Orders Only HIS CONVERSION Social History Date Tobacco Use Types Packs/Day Years Used Never Assessed Sex Assigned at Date Recorded Not on file Industry Job Start Date Occupation Not on file Not on file Not on file Travel End Travel History Travel Start No recent travel history available. documented as of this encounter Progress Notes * Rayray Elizalde Conv Transcriptions - 03/02/2008 8:34 PM CDT 8 :34 PM CDT documented in this encounter Plan of Treatment Not on filedocumented as of this encounter Visit Diagnoses Not on filedocumented in this encounter
--- OUTSIDE RECORDS SUMMARY | 2019-10-21 18:51 | XMS REPORT | Encounter Summary ---
Author Author [facility] Organization [facility] Address Unknown Phone Unavailable Care Team Providers Care Oven Operator Name Role Phone Phong Stephens MD PCP Unavailable Robby Rajan WELL DRILLER Unavailable Phong Stephens MD PCP Unavailable Carlos Middleton PCP Lorraine Hathaway MD PCP [facility], External Provider PCP Unavailable Encounter Details Care Team Description Date Type Department Becka Watters, WELL DRILLER [address] [place] [address] Unspecified Myalgia and Myositis (Primar y Dx) 10/05/[address] [address] Social History Date Tobacco Use [...] as of this encounter Visit Diagnoses Diagnosis Myalgia and myositis, unspecified - Sissy jaspal Mylagia and myositis, unspecified documented in this encounter
--- OUTSIDE RECORDS SUMMARY | 2019-10-21 18:51 | XMS REPORT | Encounter Summary ---
Author Author [facility] Organization [facility] Address Unknown Phone Unavailable Care Team Providers Care Sled Maker Name Role Phone PCP Unavailable Encounter Details Care Team Description Date Type Department Conversion, History 11/30/2007 Orders Only HIS CONVERSION Social History Date [...]
--- OUTSIDE RECORDS SUMMARY | 2019-10-21 18:51 | XMS REPORT | Encounter Summary ---
Author Author [facility] Organization [facility] Address Unknown Phone Unavailable Care Team Providers Care Electric Razor Assembler Name Role Phone PCP Unavailable Encounter Details Care Team Description Date Type Department Conversion, History 11/15/2007 Orders Only HIS CONVERSION Social History Date Tobacco Use Types Packs/Day Years Used Never Assessed Sex Assigned at Date Recorded Not on file Industry Job Start Date Occupation Not on file Not on file Not on file Travel End Travel History Travel Start No recent travel history available. documented as of this encounter Progress Notes * Rayray Elizalde Conv Transcriptions - 03/05/2008 4:24 AM CDT 4 :24 AM CDT documented in this encounter Plan of Treatment Not on filedocumented as of this encounter Visit Diagnoses Not on filedocumented in this encounter
--- OUTSIDE RECORDS SUMMARY | 2019-10-21 18:51 | XMS REPORT | Encounter Summary ---
Author Author [facility] Organization [facility] Address Unknown Phone Unavailable Care Team Providers Care Supervisor Powdered Metal Name Role Phone PCP Unavailable Encounter Details Care Team Description Date Type Department Conversion, History 10/18/2007 Orders Only HIS CONVERSION Social History Date [...]
--- OUTSIDE RECORDS SUMMARY | 2019-10-21 18:51 | XMS REPORT | Encounter Summary ---
Author Author [facility] Organization [facility] Address Unknown Phone Unavailable Care Team Providers Care Job Estimator Name Role Phone Phong Stephens MD PCP Unavailable Robby Rajan APRN Unavailable Phong Stephens MD PCP Unavailable Carlos Middleton PCP Lorraine Hathaway MD PCP [facility], External Provider PCP Unavailable Encounter Details Care Team Description Date Type Department Maurice Durbin MD [address] [place] [address] Chronic Maxillary Sinusitis (Primary Dx) 11/15/2007 Outpatient [facility] Consol idated [facility] [address] [place] [address] Social History Date Tobacco Use Types Packs/Day Years Used Never Assessed Sex Assigned at Date Recorded Not on file Industry Job Start Date Occupation Not on file Not on file Not on file Travel End Travel History Travel Start No recent travel history available. documented as of this encounter Plan of Treatment Not on filedocumented as of this encounter Visit Diagnoses Diagnosis Chronic maxillary sinusitis - Primary documented in this encounter
--- OUTSIDE RECORDS SUMMARY | 2019-10-21 18:51 | XMS REPORT | Encounter Summary ---
Author Author [facility] Organization [facility] Address Unknown Phone Unavailable Care Team Providers Care Fish Inspector Name Role Phone Phong Stephens MD PCP Unavailable Robby Rajan APRN Unavailable Phong Stephens MD PCP Unavailable Carlos Middleton PCP Lorraine Hathaway MD PCP [facility], External Provider PCP Unavailable Encounter Details Care Team Description Date Type Department Maurice Durbin MD [address] [place] [address] Mononeuritis of Unspecified Site (Primar y Dx) 10/18/2007 Outpatient [facility] Consol idated Historical [facility] [address] [place] [address] Social History Date Tobacco Use Types Packs/Day Years Used Never Assessed Sex Assigned at Date Recorded Not on file Industry Job Start Date Occupation Not on file Not on file Not on file Travel End Travel History Travel Start No recent travel history available. documented as of this encounter Plan of Treatment Not on filedocumented as of this encounter Visit Diagnoses Diagnosis Mononeuritis of unspecified site - Prim kierra documented in this encounter
--- OUTSIDE RECORDS SUMMARY | 2019-10-21 18:51 | XMS REPORT | Encounter Summary ---
Author Author [facility] Organization [facility] Address Unknown Phone Unavailable Care Team Providers Care Chemistry Department Chair Name Role Phone PCP Unavailable Encounter Details Care Team Description Date Type Department Conversion, History 11/21/2007 Orders Only HIS CONVERSION Social History Date [...]
--- OUTSIDE RECORDS SUMMARY | 2019-10-21 18:51 | XMS REPORT | Encounter Summary ---
Author Author [facility] Organization [facility] Address Unknown Phone Unavailable Care Team Providers Care Battery Wrecker Operator Name Role Phone PCP Unavailable Encounter Details Care Team Description Date Type Department Conversion, History 10/24/2007 Orders Only HIS CONVERSION Social History Date [...]
--- OUTSIDE RECORDS SUMMARY | 2019-10-21 18:51 | XMS REPORT | Encounter Summary ---
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
--- OUTSIDE RECORDS SUMMARY | 2019-10-21 18:51 | XMS REPORT | Encounter Summary ---
Author Author [facility] Organization [facility] Address Unknown Phone Unavailable Care Team Providers Care Lay Up Operator Name Role Phone PCP Unavailable Encounter Details Care Team Description Date Type Department Conversion, History 10/07/2007 Orders Only HIS CONVERSION Social History Date [...]
--- OUTSIDE RECORDS SUMMARY | 2019-10-21 18:51 | XMS REPORT | Encounter Summary ---
Author Author [facility] Organization [facility] Address Unknown Phone Unavailable Care Team Providers Care Manager Style Name Role Phone Phong Stephens MD PCP Unavailable Robby Rajan SUPERVISOR HEADING Unavailable Phong Stephens MD PCP Unavailable Carlos Middleton PCP Lorraine Hathaway MD PCP [facility], External Provider PCP Unavailable Encounter Details Care Team Description Date Type Department Self, Bubba Hsieh MD [address] [place] [address] Headache (Primary Dx) 10/21/2007 Outpatient [facility] Historical [address] [address] Social History Date Tobacco Use [...]
--- OUTSIDE RECORDS SUMMARY | 2019-10-21 18:51 | XMS REPORT | Encounter Summary ---
Author Author [facility] Organization [facility] Address Unknown Phone Unavailable Care Team Providers Care Skiver Uppers Or Linings Name Role Phone Phong Stephens MD PCP Unavailable Robby Rajan APRN Unavailable Phong Stephens MD PCP Unavailable Carlos Middleton PCP Lorraine Hathaway MD PCP [facility], External Provider PCP Unavailable Encounter Details Care Team Description Date Type Department Maurice Durbin MD [address] [place] [address] Shortness of Breath (Primary Dx) 10/01/2007 Outpatient [facility] Historical [address] [address] Social History Date Tobacco Use [...] as of this encounter Visit Diagnoses Diagnosis Shortness of breath - Primary documented in this encounter
--- OUTSIDE RECORDS SUMMARY | 2019-10-21 18:51 | XMS REPORT | Encounter Summary ---
Author Author [facility] Organization [facility] Address Unknown Phone Unavailable Care Team Providers Care Underground Mining Section Foreman Name Role Phone PCP Unavailable Encounter Details Care Team Description Date Type Department Conversion, History 10/31/2007 Orders Only HIS CONVERSION Social History Date [...]
--- OUTSIDE RECORDS SUMMARY | 2019-10-21 18:51 | XMS REPORT | Encounter Summary ---
Author Author [facility] Organization [facility] Address Unknown Phone Unavailable Care Team Providers Care Sterile Processing Tech Name Role Phone PCP Unavailable Encounter Details Care Team Description Date Type Department Provider, Abstract 11/05/2007 Abstract [facility] Social History Date Tobacco Use Types Packs/Day Years Used Never Assessed Sex Assigned at Date Recorded Not on file Industry Job Start Date Occupation Not on file Not on file Not on file Travel End Travel History Travel Start No recent travel history available. documented as of this encounter Last Filed Vital Signs Reading Time Taken Comments Vital Sign 100/68 11/05/2007 3:39 PM CDT Blood Pressure 111 11/05/2007 3:39 PM CDT Pulse - - Temperature - - Respiratory Rate - - Oxygen Saturation - - Inhaled Oxygen Concentration - - Weight - - Height - - Body Mass Index documented in this encounter Plan of Treatment Not on filedocumented as of this encounter Visit Diagnoses Not on filedocumented in this encounter
--- OUTSIDE RECORDS SUMMARY | 2019-10-21 18:51 | XMS REPORT | Encounter Summary ---
Author Author [facility] Organization [facility] Address Unknown Phone Unavailable Care Team Providers Care Film Technician Name Role Phone Phong Stephens MD PCP Unavailable Robby Rajan APRN Unavailable Phong Stephens MD PCP Unavailable Carlos Middleton PCP Lorraine Hathaway MD PCP [facility], External Provider PCP Unavailable Encounter Details Care Team Description Date Type Department Jr Yemi Nunn, [address] [place] [id number] Injury, Other and Unspecified, Knee, Leg , Ankle, and Foot (Primary Dx) 11/21/2007 Emergency [facility] Emergency Department [address] [address] Social History Date Tobacco Use [...] Visit Diagnoses Diagnosis Injury, other and unspecified, knee, le g, ankle, and foot - Primary documented in this encounter
--- OUTSIDE RECORDS SUMMARY | 2019-10-21 18:51 | XMS REPORT | Encounter Summary ---
Author Author [facility] Organization [facility] Address Unknown Phone Unavailable Care Team Providers Care Physical Therapy Supervisor Name Role Phone PCP Unavailable Encounter Details Care Team Description Date Type Department Conversion, History 12/03/2007 Orders Only HIS CONVERSION Social History Date [...]
--- OUTSIDE RECORDS SUMMARY | 2019-10-21 18:51 | XMS REPORT | Encounter Summary ---
Author Author [facility] Organization [facility] Address Unknown Phone Unavailable Care Team Providers Care Jr. Systems Administrator Name Role Phone PCP Unavailable Encounter Details Care Team Description Date Type Department Provider, Abstract 10/07/2007 Abstract AOK ABSTRACTION Social History Date Tobacco Use Types Packs/Day Years Used Never Assessed Sex Assigned at Date Recorded Not on file Industry Job Start Date Occupation Not on file Not on file Not on file Travel End Travel History Travel Start No recent travel history available. documented as of this encounter Last Filed Vital Signs Reading Time Taken Comments Vital Sign 102/70 10/07/2007 3:00 PM CDT Blood Pressure 80 10/07/2007 3:00 PM CDT Pulse - - Temperature - - Respiratory Rate - - Oxygen Saturation - - Inhaled Oxygen Concentration - - Weight - - Height - - Body Mass Index documented in this encounter Plan of Treatment Not on filedocumented as of this encounter Visit Diagnoses Not on filedocumented in this encounter
--- OUTSIDE RECORDS SUMMARY | 2019-10-21 18:51 | XMS REPORT | Encounter Summary ---
Author Author [facility] Organization [facility] Address Unknown Phone Unavailable Care Team Providers Care Solar Energy Technician Name Role Phone PCP Unavailable Encounter Details Care Team Description Date Type Department Conversion, History 11/05/2007 Orders Only HIS CONVERSION Social History Date [...]
--- OUTSIDE RECORDS SUMMARY | 2019-10-21 18:51 | XMS REPORT | Encounter Summary ---
Author Author [facility] Organization [facility] Address Unknown Phone Unavailable Care Team Providers Care Tile Designer Name Role Phone Phong Stephens MD PCP Unavailable Robby Rajan APRN Unavailable Phong Stephens MD PCP Unavailable Carlos Middleton PCP Lorraine Hathaway MD PCP [facility], External Provider PCP Unavailable Encounter Details Care Team Description Date Type Department Maurice Durbin MD [address] [place] [address] Mononeuritis of Unspecified Site (Primar y Dx) 10/07/2007 Outpatient [facility] Consol idated Historical [facility] [address] [place] [address] Social History Date Tobacco Use Types Packs/Day [...]
--- OUTSIDE RECORDS SUMMARY | 2019-10-21 18:51 | XMS REPORT | Encounter Summary ---
Author Author [facility] Organization [facility] Address Unknown Phone Unavailable Care Team Providers Care Nursery Manager Name Role Phone Phong Stephens MD PCP Unavailable Robby Rajan HEAD TRACK COACH Unavailable Phong Stephens MD PCP Unavailable Carlos Middleton PCP Lorraine Hathaway MD PCP [facility], External Provider PCP Unavailable Encounter Details Care Team Description Date Type Department Becka Watters, HEAD TRACK COACH [address] [place] [address] Unspecified Backache (Primary Dx) 10/31/[address] [address] Social History Date Tobacco Use [...]
--- OUTSIDE RECORDS SUMMARY | 2019-10-21 18:51 | XMS REPORT | Encounter Summary ---
Author Author [facility] Organization [facility] Address Unknown Phone Unavailable Care Team Providers Care Lpn Rn Name Role Phone Phong Stephens MD PCP Unavailable Robby Rajan APRN Unavailable Phong Stephens MD PCP Unavailable Carlos Middleton PCP Lorraine Hathaway MD PCP [facility], External Provider PCP Unavailable Encounter Details Care Team Description Date Type Department Maurice Durbin MD [address] [place] [address] Encounter for Long-Term (Current) Use of Anticoagulants (Primary Dx) 12/03/2007 Outpatient [facility] [address] [facility] Historical MEDICAID Social History Date [...] Associated Diag nosis CBC WITH DIFFERENTIAL Routine 12/03/2007 11:36 AM CDT PROTIME-INR Routine 12/03/2007 11:36 AM CDT documented in this encounter Results * CBC WITH DIFFERENTIAL (12/03/2007 11:36 AM CDT) WBC 9.25 3.0 - 10.4 x10E3 INTERFACE SYSTEM RBC 4.42 3.77 - 4.97 x10E6 INTERFACE SYSTEM HEMOGLOBIN 13.9 11.9 - 15.0 g/dL INTERFACE SYSTEM HEMATOCRIT 41.1 34.4 - 43.6 % INTERFACE SYSTEM MCV 93.0 79 - 100 fL INTERFACE SYSTEM MCH 31.5 28 - 34 pg INTERFACE SYSTEM MCHC 33.9 33 - 36 g/dL INTERFACE SYSTEM RDW 13.4 11.5 - 15.1 % INTERFACE SYSTEM PLATELETS 179 148 - 408 x10E3 INTERFACE SYSTEM MPV 8.8 7.4 - 10.6 fL INTERFACE SYSTEM NEUTROPHILS 61.1 43 - 73 % INTERFACE SYSTEM LYMPHOCYTES 31.7 19 - 47 % INTERFACE SYSTEM MONOCYTES 5.3 3 - 9 % INTERFACE SYSTEM EOSINOPHILS 1.6 0 - 6 % INTERFACE SYSTEM BASOPHILS 0.2 0 - 1.2 % INTERFACE SYSTEM NEUTROPHIL 5.65 1.3 - 7.6 x10E3 INTERFACE ABSOLUTE SYSTEM LYMPHOCYTE 2.93 0.6 - 4.9 x10E3 INTERFACE ABSOLUTE SYSTEM MONOCYTE 0.49 0.1 - 0.9 x10E3 INTERFACE ABSOLUTE SYSTEM EOSINOPHIL 0.15 0.0 - 0.2 x10E3 INTERFACE ABSOLUTE SYSTEM BASOPHILS 0.02 0 - 0.1 x10E3 INTERFACE ABSOLUTE SYSTEM Specimen Narrative Performed At Preop Test? N INTERFACE SYSTEM COMMENT: FEVER, SUTURE Performing Organization Address [facility] Ph one Number INTERFACE SYSTEM INTERFACE SYSTEM Refer to clinic/hospital department * PROTIME-INR (12/03/2007 11:36 AM CDT) PROTIME 11.4 9.5 - 11.5 Sec INTERFACE SYSTEM INR 1.09 (L) 2.0 - 3.0 INTERFACE SYSTEM Specimen Performing Organization Address 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
--- OUTSIDE RECORDS SUMMARY | 2019-10-21 18:51 | XMS REPORT | Encounter Summary ---
Author Author [facility] Organization [facility] Address Unknown Phone Unavailable Care Team Providers Care Vehicle Fare Collector Name Role Phone PCP Unavailable Encounter Details Care Team Description Date Type Department Conversion, History 10/21/2007 Orders Only HIS CONVERSION Social History Date [...]
--- OUTSIDE RECORDS SUMMARY | 2019-10-21 18:51 | XMS REPORT | Encounter Summary ---
Author Author [facility] Organization [facility] Address Unknown Phone Unavailable Care Team Providers Care Cooking Teacher Name Role Phone Phong Stephens MD PCP Unavailable Robby Rajan APRN Unavailable Phong Stephens MD PCP Unavailable Carlos Middleton PCP Lorraine Hathaway MD PCP [facility], External Provider PCP Unavailable Encounter Details Care Team Description Date Type Department Maurice Durbin MD [address] [place] [address] Other Postoperative Infection (Primary D x) 12/03/2007 Outpatient [facility] Consol idated [facility] [address] [place] [address] Social History Date Tobacco Use Types Packs/Day Years Used Never Assessed Sex Assigned at Date Recorded Not on file Industry Job Start Date Occupation Not on file Not on file Not on file Travel End Travel History Travel Start No recent travel history available. documented as of this encounter Plan of Treatment Not on filedocumented as of this encounter Visit Diagnoses Diagnosis Other postoperative infection - Primary documented in this encounter
--- OUTSIDE RECORDS SUMMARY | 2019-10-21 18:52 | XMS REPORT | Encounter Summary ---
Author Author [facility] Organization [facility] Address Unknown Phone Unavailable Care Team Providers Care Tree Trimmer Name Role Phone Phong Stephens MD PCP Unavailable Robby Rajan APRN Unavailable Phong Stephens MD PCP Unavailable Carlos Middleton PCP Lorraine Hathaway MD PCP [facility], External Provider PCP Unavailable Encounter Details Care Team Description Date Type Department Turner Cabral, [address] [place] [address] Routine Medical Exam (Primary Dx) 09/02/2007 Outpatient [facility] Consol idated [address] [address] Social History Date Tobacco Use Types Packs/Day Years Used Never Assessed Sex Assigned at Date Recorded Not on file Industry Job Start Date Occupation Not on file Not on file Not on file Travel End Travel History Travel Start No recent travel history available. documented as of this encounter Plan of Treatment Not on filedocumented as of this encounter Visit Diagnoses Diagnosis Routine medical exam - Primary Routine general medical examination at a health care facility documented in this encounter
--- OUTSIDE RECORDS SUMMARY | 2019-10-21 18:52 | XMS REPORT | Encounter Summary ---
Author Author [facility] Organization [facility] Address Unknown Phone Unavailable Care Team Providers Care Dietitian Assistant Name Role Phone PCP Unavailable Encounter Details Care Team Description Date Type Department Conversion, History 09/02/2007 Orders Only HIS CONVERSION Social History Date Tobacco Use Types Packs/Day Years Used Never Assessed Sex Assigned at Date Recorded Not on file Industry Job Start Date Occupation Not on file Not on file Not on file Travel End Travel History Travel Start No recent travel history available. documented as of this encounter Progress Notes * Rayray Elizalde Conv Transcriptions - 03/05/2008 4:22 AM CDT 4 :22 AM CDT documented in this encounter Plan of Treatment Not on filedocumented as of this encounter Visit Diagnoses Not on filedocumented in this encounter
--- OUTSIDE RECORDS SUMMARY | 2019-10-21 18:52 | XMS REPORT | Encounter Summary ---
Author Author [facility] Organization [facility] Address Unknown Phone Unavailable Care Team Providers Care Conditioning Yard Supervisor Name Role Phone PCP Unavailable Encounter Details Care Team Description Date Type Department Conversion, History 09/23/2007 Orders Only HIS CONVERSION Social History Date Tobacco Use Types Packs/Day Years Used Never Assessed Sex Assigned at Date Recorded Not on file Industry Job Start Date Occupation Not on file Not on file Not on file Travel End Travel History Travel Start No recent travel history available. documented as of this encounter Progress Notes * Raryay Elizalde Conv Transcriptions - 03/05/2008 4:23 AM CDT 4 :23 AM CDT documented in this encounter Plan of Treatment Not on filedocumented as of this encounter Visit Diagnoses Not on filedocumented in this encounter
--- OUTSIDE RECORDS SUMMARY | 2019-10-21 18:52 | XMS REPORT | Encounter Summary ---
Author Author [facility] Organization [facility] Address Unknown Phone Unavailable Care Team Providers Care Transportation Driver Name Role Phone Phong Stephens MD PCP Unavailable Robby Rajan CLIENT RELATIONS REPRESENTATIVE Unavailable Phong Stephens MD PCP Unavailable Carlos Middleton PCP Lorraine Hathaway MD PCP [facility], External Provider PCP Unavailable Encounter Details Care Team Description Date Type Department Leisure, Emy Floyd APRN NO ADDRESS ON FILE Contusion of Elbow (Primary Dx) 09/01/[address] [address] Social History Date Tobacco Use [...] this encounter Visit Diagnoses Diagnosis Contusion of elbow - Primary documented in this encounter
--- OUTSIDE RECORDS SUMMARY | 2019-10-21 18:52 | XMS REPORT | Encounter Summary ---
Author Author [facility] Organization [facility] Address Unknown Phone Unavailable Care Team Providers Care Cover Seamer Name Role Phone Phong Stephens MD PCP Unavailable Robby Rajan APRN Unavailable Phong Stephens MD PCP Unavailable Carlos Middleton PCP Lorraine Hathaway MD PCP [facility], External Provider PCP Unavailable Encounter Details Care Team Description Date Type Department Maurice Durbin MD [address] [place] [address] Nonspecif Skin Erupt NEC (Primary Dx) 09/23/2007 Outpatient [facility] Consol idated Historical [facility] [address] [place] [address] Social History Date Tobacco Use Types Packs/Day Years Used Never Assessed Sex Assigned at Date Recorded Not on file Industry Job Start Date Occupation Not on file Not on file Not on file Travel End Travel History Travel Start No recent travel history available. documented as of this encounter Plan of Treatment Not on filedocumented as of this encounter Visit Diagnoses Diagnosis Nonspecif skin erupt NEC - Primary Rash and other nonspecific skin eruptio n documented in this encounter
--- OUTSIDE RECORDS SUMMARY | 2019-10-21 18:52 | XMS REPORT | Encounter Summary ---
Author Author [facility] Organization [facility] Address Unknown Phone Unavailable Care Team Providers Care Instructional Technology Specialist Name Role Phone PCP Unavailable Encounter Details Care Team Description Date Type Department Provider, Abstract 08/27/2007 Abstract AOK ABSTRACTION Social History Date Tobacco Use Types Packs/Day Years Used Never Assessed Sex Assigned at Date Recorded Not on file Industry Job Start Date Occupation Not on file Not on file Not on file Travel End Travel History Travel Start No recent travel history available. documented as of this encounter Last Filed Vital Signs Reading Time Taken Comments Vital Sign 104/68 08/27/2007 2:47 PM CDT Blood Pressure 112 08/27/2007 2:47 PM CDT Pulse - - Temperature - - Respiratory Rate - - Oxygen Saturation - - Inhaled Oxygen Concentration 122.9 kg (271 lb) 08/27/2007 2:47 PM CDT Weight - - Height - - Body Mass Index documented in this encounter Plan of Treatment Not on filedocumented as of this encounter Visit Diagnoses Not on filedocumented in this encounter
--- OUTSIDE RECORDS SUMMARY | 2019-10-21 18:52 | XMS REPORT | Encounter Summary ---
Author Author [facility] Organization [facility] Address Unknown Phone Unavailable Care Team Providers Care Stockfeed Miller Name Role Phone Phong Stephens MD PCP Unavailable Robby Rajan CLEARANCE DIVER Unavailable Phong Stephens MD PCP Unavailable Carlos Middleton PCP Lorraine Hathaway MD PCP [facility], External Provider PCP Unavailable Encounter Details Care Team Description Date Type Department Becka Watters, CLEARANCE DIVER [address] [place] [address] Joint Pain-L/Leg (Primary Dx) 08/15/[address] [address] Social History Date Tobacco Use [...] of this encounter Visit Diagnoses Diagnosis Joint pain-l/leg - Primary Pain in joint, lower leg documented in this encounter
--- OUTSIDE RECORDS SUMMARY | 2019-10-21 18:52 | XMS REPORT | Encounter Summary ---
Author Author [facility] Organization [facility] Address Unknown Phone Unavailable Care Team Providers Care Android Framework Developer Name Role Phone Phong Stephens MD PCP Unavailable Robby Rajan APRN Unavailable Phong Stephens MD PCP Unavailable Carlos Middleton PCP Lorraine Hathaway MD PCP [facility], External Provider PCP Unavailable Encounter Details Care Team Description Date Type Department Maurice Durbin MD [address] [place] [id number] Abn Urine Findings NEC (Primary Dx) 08/27/2007 Outpatient [facility] [address] [facility] [...] as of this encounter Visit Diagnoses Diagnosis Abn urine findings NEC - Primary Other nonspecific finding on examinatio n of urine documented in this encounter
--- OUTSIDE RECORDS SUMMARY | 2019-10-21 18:52 | XMS REPORT | Encounter Summary ---
Author Author [facility] Organization [facility] Address Unknown Phone Unavailable Care Team Providers Care Park Superintendent Name Role Phone Phong Stephens MD PCP Unavailable Robby Rajan APRN Unavailable Phong Stephens MD PCP Unavailable Carlos Middleton PCP Lorraine Hathaway MD PCP [facility]cf, External Provider PCP Unavailable Encounter Details Care Team Description Date Type Department Saturnino Tejada [address] [facility] [place] [id number] Phong White MD [address] [place] [address] Nausea with Vomiting (Primary Dx) 08/08/2007 Emergency [facility] Emergency Department [address] [address] Social History Date Tobacco Use [...] with vomiting - Primary documented in this encounter
--- OUTSIDE RECORDS SUMMARY | 2019-10-21 18:52 | XMS REPORT | Encounter Summary ---
Author Author [facility] Organization [facility] Address Unknown Phone Unavailable Care Team Providers Care Carnallite Plant Operator Name Role Phone Phong Stephens MD PCP Unavailable Robby Rajan APRN Unavailable Phong Stephens MD PCP Unavailable Carlos Middleton PCP Lorraine Hathaway MD PCP [facility]cf, External Provider PCP Unavailable Encounter Details Care Team Description Date Type Department Maurice Durbin MD [address] [place] [address] Chronic Airway Obstruction, not Elsewher e Classified (Primary Dx) 09/24/2007 Outpatient [facility] [address] [place] [address] Social History Date Tobacco Use [...] of this encounter Visit Diagnoses Diagnosis Chronic airway obstruction, not elsewhe re classified - Primary documented in this encounter
--- OUTSIDE RECORDS SUMMARY | 2019-10-21 18:52 | XMS REPORT | Encounter Summary ---
Author Author [facility] Organization [facility] Address Unknown Phone Unavailable Care Team Providers Care Director Of Counseling Name Role Phone Phong Stephens MD PCP Unavailable Robby Rajan APRN Unavailable Phong Stephens MD PCP Unavailable Carlos Middleton PCP Lorraine Hathaway MD PCP M[facility]cf, External Provider PCP Unavailable Encounter Details Care Team Description Date Type Department Maurice Durbin MD [address] [place] [address] Chronic Airway Obstruction, not Elsewher e Classified (Primary Dx) 09/27/2007 Outpatient [facility] Consol idated Historical [facility] [address] [place] [address] Social History Date Tobacco Use Types Packs/Day [...]
--- OUTSIDE RECORDS SUMMARY | 2019-10-21 18:52 | XMS REPORT | Encounter Summary ---
Author Author [facility] Organization [facility] Address Unknown Phone Unavailable Care Team Providers Care Seal Mixing Operator Name Role Phone PCP Unavailable Encounter Details Care Team Description Date Type Department Conversion, History 09/01/2007 Orders Only HIS CONVERSION Social History Date Tobacco Use Types Packs/Day Years Used Never Assessed Sex Assigned at Date Recorded Not on file Industry Job Start Date Occupation Not on file Not on file Not on file Travel End Travel History Travel Start No recent travel history available. documented as of this encounter Progress Notes * Interface, Rayray [employer] Conv Transcriptions - 03/05/2008 4:22 AM CDT 4 :22 AM CDT * Interface, Rayray [employer] Conv Transcriptions - 03/05/2008 4:18 AM CDT Electronically signed by Interface, [facility] [employer] Conv Transcriptions at 03/05/2008 4 :18 AM CDT documented in this encounter Plan of Treatment Not on filedocumented as of this encounter Visit Diagnoses Not on filedocumented in this encounter
--- OUTSIDE RECORDS SUMMARY | 2019-10-21 18:52 | XMS REPORT | Encounter Summary ---
Author Author [facility] Organization [facility] Address Unknown Phone Unavailable Care Team Providers Care Engineering And Operations Director Name Role Phone Phong Stephens MD PCP Unavailable Robby Rajan APRN Unavailable Phong Stephens MD PCP Unavailable Carlos Middleton PCP Lorraine Hathaway MD PCP M[facility]cf, External Provider PCP Unavailable Encounter Details Care Team Description Date Type Department Maurice Durbin MD [address] [place] [address] Nausea with Vomiting (Primary Dx) 08/27/2007 Outpatient [facility] Consol idated Historical [facility] [address] [place] [address] Social History Date Tobacco Use Types Packs/Day [...]
--- OUTSIDE RECORDS SUMMARY | 2019-10-21 18:52 | XMS REPORT | Encounter Summary ---
Author Author [facility] Organization [facility] Address Unknown Phone Unavailable Care Team Providers Care Tunneller Name Role Phone PCP Unavailable Encounter Details Care Team Description Date Type Department Conversion, History 09/16/2007 Orders Only HIS CONVERSION Social History Date [...]
--- OUTSIDE RECORDS SUMMARY | 2019-10-21 18:52 | XMS REPORT | Encounter Summary ---
Author Author [facility] Organization [facility] Address Unknown Phone Unavailable Care Team Providers Care Allergy And Immunology Chief Name Role Phone PCP Unavailable Encounter Details Care Team Description Date Type Department Provider, Abstract 09/27/2007 Abstract AOK ABSTRACTION Social History Date Tobacco Use Types Packs/Day Years Used Never Assessed Sex Assigned at Date Recorded Not on file Industry Job Start Date Occupation Not on file Not on file Not on file Travel End Travel History Travel Start No recent travel history available. documented as of this encounter Last Filed Vital Signs Reading Time Taken Comments Vital Sign 92/60 09/27/2007 1:56 PM CDT Blood Pressure 90 09/27/2007 1:56 PM CDT Pulse - - Temperature - - Respiratory Rate - - Oxygen Saturation - - Inhaled Oxygen Concentration - - Weight - - Height - - Body Mass Index documented in this encounter Plan of Treatment Not on filedocumented as of this encounter Visit Diagnoses Not on filedocumented in this encounter
--- OUTSIDE RECORDS SUMMARY | 2019-10-21 18:52 | XMS REPORT | Encounter Summary ---
Author Author [facility] Organization [facility] Address Unknown Phone Unavailable Care Team Providers Care Upper Extremity Surgeon Name Role Phone PCP Unavailable Encounter Details Care Team Description Date Type Department Conversion, History 09/27/2007 Orders Only HIS CONVERSION Social History Date [...]
--- OUTSIDE RECORDS SUMMARY | 2019-10-21 18:52 | XMS REPORT | Encounter Summary ---
Author Author [facility] Organization [facility] Address Unknown Phone Unavailable Care Team Providers Care Office Professionals Name Role Phone PCP Unavailable Encounter Details Care Team Description Date Type Department Conversion, History 08/27/2007 Orders Only HIS CONVERSION Social History Date [...]
--- OUTSIDE RECORDS SUMMARY | 2019-10-21 18:52 | XMS REPORT | Encounter Summary ---
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 documented as of this encounter Plan of Treatment Not on filedocumented as of this encounter Visit Diagnoses Diagnosis Benign neoplasm of colon - Primary documented in this encounter
--- OUTSIDE RECORDS SUMMARY | 2019-10-21 18:52 | XMS REPORT | Encounter Summary ---
Author Author [facility] Organization [facility] Address Unknown Phone Unavailable Care Team Providers Care Paper Hanger Name Role Phone PCP Unavailable Encounter Details Care Team Description Date Type Department Conversion, History 07/22/2007 Orders Only HIS CONVERSION Social History Date Tobacco Use Types Packs/Day Years Used Never Assessed Sex Assigned at Date Recorded Not on file Industry Job Start Date Occupation Not on file Not on file Not on file Travel End Travel History Travel Start No recent travel history available. documented as of this encounter Progress Notes * Rayray Elizalde Conv Transcriptions - 03/05/2008 4:21 AM CDT 4 :21 AM CDT documented in this encounter Plan of Treatment Not on filedocumented as of this encounter Visit Diagnoses Not on filedocumented in this encounter
--- OUTSIDE RECORDS SUMMARY | 2019-10-21 18:52 | XMS REPORT | Encounter Summary ---
Author Author [facility] Organization [facility] Address Unknown Phone Unavailable Care Team Providers Care Pulley Maintainer Name Role Phone PCP Unavailable Encounter Details Care Team Description Date Type Department Conversion, History 09/24/2007 Orders Only HIS CONVERSION Social History Date [...]
--- OUTSIDE RECORDS SUMMARY | 2019-10-21 18:52 | XMS REPORT | Encounter Summary ---
Author Author [facility] Organization [facility] Address Unknown Phone Unavailable Care Team Providers Care Clock Repairer Name Role Phone Phong Stephens MD PCP Unavailable Robby Rajan APRN Unavailable Phong Stephens MD PCP Unavailable Carlos Middleton PCP Lorraine Hathaway MD PCP [facility], External Provider PCP Unavailable Encounter Details Care Team Description Date Type Department Maruice Durbin MD [address] [place] [phone] Nonspecif Skin Erupt NEC (Primary Dx) 09/23/2007 Outpatient [facility] [address] [facility] [...] Associated Diag nosis CBC WITH DIFFERENTIAL Routine 09/23/2007 3:01 PM CDT documented in this encounter Results * CBC WITH DIFFERENTIAL (09/23/2007 3:01 PM CDT) WBC 7.26 3.0 - 10.4 x10E3 INTERFACE SYSTEM RBC 4.51 3.77 - 4.97 x10E6 INTERFACE SYSTEM HEMOGLOBIN 14.4 11.9 - 15.0 g/dL INTERFACE SYSTEM HEMATOCRIT 41.3 34.4 - 43.6 % INTERFACE SYSTEM MCV 91.5 79 - 100 fL INTERFACE SYSTEM MCH 32.0 28 - 34 pg INTERFACE SYSTEM MCHC 34.9 33 - 36 g/dL INTERFACE SYSTEM RDW 13.1 11.5 - 15.1 % INTERFACE SYSTEM PLATELETS 181 148 - 408 x10E3 INTERFACE SYSTEM MPV 8.4 7.4 - 10.6 fL INTERFACE SYSTEM NEUTROPHILS 64.3 43 - 73 % INTERFACE SYSTEM LYMPHOCYTES 28.3 19 - 47 % INTERFACE SYSTEM MONOCYTES 5.5 3 - 9 % INTERFACE SYSTEM EOSINOPHILS 1.5 0 - 6 % INTERFACE SYSTEM BASOPHILS 0.5 0 - 1.2 % INTERFACE SYSTEM NEUTROPHIL 4.67 1.3 - 7.6 x10E3 INTERFACE ABSOLUTE SYSTEM LYMPHOCYTE 2.06 0.6 - 4.9 x10E3 INTERFACE ABSOLUTE SYSTEM MONOCYTE 0.40 0.1 - 0.9 x10E3 INTERFACE ABSOLUTE SYSTEM EOSINOPHIL 0.11 0.0 - 0.2 x10E3 INTERFACE ABSOLUTE SYSTEM BASOPHILS 0.03 0 - 0.1 x10E3 INTERFACE ABSOLUTE SYSTEM Specimen Narrative Performed At Preop Test? N INTERFACE SYSTEM Performing Organization Address City/State/Zipcode Ph one Number INTERFACE SYSTEM INTERFACE SYSTEM Refer to clinic/hospital department documented in this encounter Visit Diagnoses Diagnosis Nonspecif skin erupt NEC - Primary Rash and other nonspecific skin eruptio n documented in this encounter
--- OUTSIDE RECORDS SUMMARY | 2019-10-21 18:52 | XMS REPORT | Encounter Summary ---
Author Author [facility] Organization [facility] Address Unknown Phone Unavailable Care Team Providers Care Decorator Street And Building Name Role Phone PCP Unavailable Encounter Details Care Team Description Date Type Department Provider, Abstract 09/23/2007 Abstract AOK ABSTRACTION Social History Date Tobacco Use Types Packs/Day Years Used Never Assessed Sex Assigned at Date Recorded Not on file Industry Job Start Date Occupation Not on file Not on file Not on file Travel End Travel History Travel Start No recent travel history available. documented as of this encounter Last Filed Vital Signs Reading Time Taken Comments Vital Sign 98/60 09/23/2007 11:31 AM CDT Blood Pressure 100 09/23/2007 11:31 AM CDT Pulse - - Temperature - - Respiratory Rate - - Oxygen Saturation - - Inhaled Oxygen Concentration - - Weight - - Height - - Body Mass Index documented in this encounter Plan of Treatment Not on filedocumented as of this encounter Visit Diagnoses Not on filedocumented in this encounter
--- OUTSIDE RECORDS SUMMARY | 2019-10-21 18:52 | XMS REPORT | Encounter Summary ---
Author Author [facility] Organization [facility] Address Unknown Phone Unavailable Care Team Providers Care Patient Access Associate Name Role Phone PCP Unavailable Encounter Details Care Team Description Date Type Department Conversion, History 08/07/2007 Orders Only HIS CONVERSION Social History Date [...]
--- OUTSIDE RECORDS SUMMARY | 2019-10-21 18:52 | XMS REPORT | Encounter Summary ---
Author Author [facility] Organization [facility] Address Unknown Phone Unavailable Care Team Providers Care Suit Maker Name Role Phone PCP Unavailable Encounter Details Care Team Description Date Type Department Conversion, History 08/15/2007 Orders Only HIS CONVERSION Social History Date [...]
--- OUTSIDE RECORDS SUMMARY | 2019-10-21 18:52 | XMS REPORT | Encounter Summary ---
Author Author [facility] Organization [facility] Address Unknown Phone Unavailable Care Team Providers Care Machine Ii Coremaker Name Role Phone Phong Stephens MD PCP Unavailable Robby Rajan APRN Unavailable Phong Stephens MD PCP Unavailable Carlos Middleton PCP Lorraine Hathaway MD PCP M[facility]cf, External Provider PCP Unavailable Encounter Details Care Team Description Date Type Department Maurice Durbin MD [address] [place] [address] Unspecified Migraine without Mention of Intractable Migraine (Primary Dx) 08/07/2007 Outpatient [facility] Consol idated Historical [facility] [address] [place] [address] Social History Date Tobacco Use Types Packs/Day [...]
--- OUTSIDE RECORDS SUMMARY | 2019-10-21 18:52 | XMS REPORT | Encounter Summary ---
Author Author [facility] Organization [facility] Address Unknown Phone Unavailable Care Team Providers Care Investment Advisor Name Role Phone Phong Stephens MD PCP Unavailable Robby Rajan APRN Unavailable Phong Stephens MD PCP Unavailable Carlos Middleton PCP Lorraine Hathaway MD PCP Mhcf, External Provider PCP Unavailable Encounter Details Care Team Description Date Type Department Maurice Durbin MD [address] [place] [address] Mononeuritis of Unspecified Site (Primar y Dx) 07/26/2007 Outpatient [facility] Consol idated Historical [facility] [address] [place] [address] Social History Date Tobacco Use Types Packs/Day [...]
--- OUTSIDE RECORDS SUMMARY | 2019-10-21 18:52 | XMS REPORT | Encounter Summary ---
Author Author [facility] Organization [facility] Address Unknown Phone Unavailable Care Team Providers Care Material Handler 2Nd Shift Name Role Phone Phong Stephens MD PCP Unavailable Robby Rajan ENVIRONMENTAL SERVICES TECHNICIAN Unavailable Phong Stephens MD PCP Unavailable Carlos Middleton PCP Lorraine Hathaway MD PCP [facility]cf, External Provider PCP Unavailable Encounter Details Care Team Description Date Type Department Leisure, Emy Floyd APRN NO ADDRESS ON FILE Contusion of Elbow (Primary Dx) 09/01/[address] [address] Social History Date Tobacco Use [...]
--- OUTSIDE RECORDS SUMMARY | 2019-10-21 18:52 | XMS REPORT | Encounter Summary ---
Author Author [facility] Organization [facility] Address Unknown Phone Unavailable Care Team Providers Care Fruit Or Nut Picker Name Role Phone PCP Unavailable Encounter Details Care Team Description Date Type Department Conversion, History 07/26/2007 Orders Only HIS CONVERSION Social History Date [...]
--- OUTSIDE RECORDS SUMMARY | 2019-10-21 18:52 | XMS REPORT | Encounter Summary ---
Author Author [facility] Organization [facility] Address Unknown Phone Unavailable Care Team Providers Care Lathe Machine Operator Name Role Phone PCP Unavailable Encounter Details Care Team Description Date Type Department Conversion, History 08/08/2007 Orders Only HIS CONVERSION Social History Date Tobacco Use Types Packs/Day Years Used Never Assessed Sex Assigned at Date Recorded Not on file Industry Job Start Date Occupation Not on file Not on file Not on file Travel End Travel History Travel Start No recent travel history available. documented as of this encounter Progress Notes * Rayray Elizalde Conv Transcriptions - 03/05/2008 4:18 AM CDT 4 :18 AM CDT documented in this encounter Plan of Treatment Not on filedocumented as of this encounter Visit Diagnoses Not on filedocumented in this encounter
--- OUTSIDE RECORDS SUMMARY | 2019-10-21 18:53 | XMS REPORT | Encounter Summary ---
Author Author [facility] Organization [facility] Address Unknown Phone Unavailable Care Team Providers Care Editor Index Name Role Phone Phong Stephens MD PCP Unavailable Robby Rajan APRN Unavailable Phong Stephens MD PCP Unavailable Carlos Middleton PCP Lorraine Hathaway MD PCP [facility]cf, External Provider PCP Unavailable Encounter Details Care Team Description Date Type Department Maurice Durbin MD [address] [place] [address] Chronic Maxillary Sinusitis (Primary Dx) 06/27/2007 Outpatient [facility] Consol idated [facility] [address] [place] [address] Social History Date Tobacco Use Types Packs/Day [...]
--- OUTSIDE RECORDS SUMMARY | 2019-10-21 18:53 | XMS REPORT | Encounter Summary ---
Author Author [facility] Organization [facility] Address Unknown Phone Unavailable Care Team Providers Care Counter Tacker Name Role Phone Phong Stephens MD PCP Unavailable Robby Rajan APRN Unavailable Phong Stephens MD PCP Unavailable Carlos Middleton PCP Lorraine Hathaway MD PCP Mhcf, External Provider PCP Unavailable Encounter Details Care Team Description Date Type Department Lavell Leong Jr., MD [address] [place] [address] [address] [place] [address] Joint Pain-Shlder (Primary Dx) 04/19/2007 Outpatient [facility] ort [facility] Cardiopulmonary [address] [place] [address] Social History Date Tobacco Use [...] Priority Date/Time Associated Diag nosis PROTIME-INR Routine 04/19/2007 11:06 AM MOLD WASHER CBC WITHOUT DIFFERENTIAL Routine 04/19/2007 11:06 AM MOLD WASHER BASIC METABOLIC PANEL Routine 04/19/2007 11:06 AM MOLD WASHER documented in this encounter Results * CBC WITHOUT DIFFERENTIAL (04/19/2007 11:06 AM MOLD WASHER) WBC 7.91 4.0 - 10.8 x10E3 INTERFACE SYSTEM RBC 4.31 4.2 - 5.4 x10E6 INTERFACE SYSTEM HEMOGLOBIN 14.0 12.0 - 16.0 g/dL INTERFACE SYSTEM HEMATOCRIT 40.2 37 - 47 % INTERFACE SYSTEM MCV 93.4 81.0 - 102 fL INTERFACE SYSTEM MCH 32.6 27 - 33 pg INTERFACE SYSTEM MCHC 34.9 32 - 38 g/dL INTERFACE SYSTEM RDW 14.2 12.1 - 16.7 % INTERFACE SYSTEM PLATELETS 212 130 - 400 x10E3 INTERFACE SYSTEM MPV 8.5 7.4 - 10.4 fL INTERFACE SYSTEM Specimen Performing Organization Address City/[facility] one Number INTERFACE SYSTEM INTERFACE SYSTEM Refer to clinic/hospital department * PROTIME-INR (04/19/2007 11:06 AM MOLD WASHER) PROTIME 10.0 9.6 - 11.0 Sec INTERFACE SYSTEM INR 0.97 (L) 2.0 - 3.0 INTERFACE SYSTEM Specimen Performing Organization Address [facility] one Number INTERFACE SYSTEM INTERFACE SYSTEM Refer to clinic/hospital department * BASIC METABOLIC PANEL (04/19/2007 11:06 AM MOLD WASHER) GLUCOSE 92 70 - 110 mg/dl INTERFACE SYSTEM BUN 16.0 7 - 20 mg/dl INTERFACE SYSTEM CREATININE 0.8 0.6 - 1.0 mg/dl INTERFACE SYSTEM BUN/CREAT RATIO 20.0 10 - 20 INTERFACE SYSTEM GFR 87 >90 ml/min INTERFACE SYSTEM SODIUM 137 135 - 145 mmol/L INTERFACE SYSTEM POTASSIUM 3.9 3.3 - 4.8 mmol/L INTERFACE SYSTEM CHLORIDE 103 98 - 107 mmol/L INTERFACE SYSTEM CO2 24.4 22 - 31 mmol/L INTERFACE SYSTEM ANION GAP 14 4 - 20 INTERFACE SYSTEM CALCIUM 9.0 8.5 - 10.1 mg/dl INTERFACE SYSTEM Specimen Performing Organization Address [facility] one Number INTERFACE SYSTEM INTERFACE SYSTEM Refer to clinic/hospital department documented in this encounter Visit Diagnoses Diagnosis Joint pain-shlder - Primary Pain in joint, shoulder region documented in this encounter
--- OUTSIDE RECORDS SUMMARY | 2019-10-21 18:53 | XMS REPORT | Encounter Summary ---
Author Author [facility] Organization [facility] Address Unknown Phone Unavailable Care Team Providers Care Hearing Therapist Name Role Phone Phong Stephens MD PCP Unavailable Robby Rajan APRN Unavailable Phong Stephens MD PCP Unavailable Carlos Middleton PCP Lorraine Hathaway MD PCP Mhcf, External Provider PCP Unavailable Encounter Details Care Team Description Date Type Department Maurice Durbin MD [address] [place] [address] Embolism and Thrombosis of Unspecified D eep Vessels of Lower Extremity (Primary Dx) 04/01/2007 Outpatient [facility] Ultrasound [address] [place] [address] Social History Date Tobacco Use [...] Date/Time Associated Diag nosis SEDIMENTATION RATE Routine 04/01/2007 11:17 AM CDT PROTIME-INR Routine 04/01/2007 11:17 AM CDT RHEUMATOID FACTOR Routine 04/01/2007 11:17 AM CDT JONELLE SCREEN W/REFLEX Routine 04/01/2007 11:17 AM CDT documented in this encounter Results * JONELLE (04/01/2007 11:17 AM CDT) Pathologist [facility] JONELLE NEGATIVE NEGATIVE INTERFACE Comment: SYSTEM Test performed at [employer] [address] [address] Specimen Narrative Performed At COMMENT: JOINT PAIN, SWELLING INTERFACE SYSTEM Performing Organization Address [facility] one Number INTERFACE SYSTEM INTERFACE SYSTEM Refer to clinic/hospital department * RHEUMATOID FACTOR (04/01/2007 11:17 AM CDT) Pathologist [facility] RHEUMATOID 6 <14 IU/mL INTERFACE FACTOR Comment: SYSTEM Test performed at [facility] [employer] [address] [address] Specimen Narrative Performed At COMMENT: JOINT PAIN, SWELLING INTERFACE SYSTEM Performing Organization Address [facility] Ph one Number INTERFACE SYSTEM INTERFACE SYSTEM Refer to clinic/hospital department * SEDIMENTATION RATE (04/01/2007 11:17 AM CDT) Pathologist [facility] ESR 9 0 - 20 mm/hr INTERFACE (SEDIMENTATION SYSTEM RATE) Specimen Narrative Performed At COMMENT: JOINT PAIN, SWELLING INTERFACE SYSTEM Performing Organization Address [facility] Ph one Number INTERFACE SYSTEM INTERFACE SYSTEM Refer to clinic/hospital department * PROTIME-INR (04/01/2007 11:17 AM CDT) Pathologist [facility] PROTIME 120.0 ()Comment: CALLED TO 9.6 - 11.0 Sec I NTERFACE JOYCELYN/BG AT 1206 SYSTEM INR 14.89 ()Comment: CALLED TO 2.0 - 3.0 I NTERFACE JOYCELYN/BG AT 1206 SYSTEM Specimen Narrative Performed At COMMENT: JOINT PAIN, SWELLING INTERFACE SYSTEM Performing Organization Address [facility] Ph one Number INTERFACE SYSTEM INTERFACE SYSTEM Refer to clinic/hospital department documented in this encounter Visit Diagnoses Diagnosis Acute venous embolism and thrombosis of unspecified deep vessels of lower extremity - Primary documented in this encounter
--- OUTSIDE RECORDS SUMMARY | 2019-10-21 18:53 | XMS REPORT | Encounter Summary ---
Author Author [facility] Organization [facility] Address Unknown Phone Unavailable Care Team Providers Care Museum Security Chief Name Role Phone Phong Stephens MD PCP Unavailable Robby Rajan APRN Unavailable Phong Stephens MD PCP Unavailable Carlos Middleton PCP Lorraine Hathaway MD PCP Mhcf, External Provider PCP Unavailable Encounter Details Care Team Description Date Type Department Canelo Patton MD [address] [place] [address] Syncope and Collapse (Primary Dx) 05/09/2007 Outpatient [facility] Historical [address] [address] Social History Date Tobacco Use [...] as of this encounter Visit Diagnoses Diagnosis Syncope and collapse - Primary documented in this encounter
--- OUTSIDE RECORDS SUMMARY | 2019-10-21 18:53 | XMS REPORT | Encounter Summary ---
Author Author [facility] Organization [facility] Address Unknown Phone Unavailable Care Team Providers Care Manufacturing Teacher Name Role Phone Phong Stephens MD PCP Unavailable Robby Rajan APRN Unavailable Phong Stephens MD PCP Unavailable Carlos Middleton PCP Lorraine Hathaway MD PCP Mhcf, External Provider PCP Unavailable Encounter Details Care Team Description Date Type Department Maurice Durbin MD [address] [place] [address] Unspecified Constipation (Primary Dx) 03/25/2007 Outpatient [facility] Consol idated Historical [facility] [address] [place] [address] Social History Date Tobacco Use Types Packs/Day Years Used Never Assessed Sex Assigned at Date Recorded Not on file Industry Job Start Date Occupation Not on file Not on file Not on file Travel End Travel History Travel Start No recent travel history available. documented as of this encounter Plan of Treatment Not on filedocumented as of this encounter Visit Diagnoses Diagnosis Unspecified constipation - Primary documented in this encounter
--- OUTSIDE RECORDS SUMMARY | 2019-10-21 18:53 | XMS REPORT | Encounter Summary ---
Author Author [facility] Organization [facility] Address Unknown Phone Unavailable Care Team Providers Care Rehabilitation Services Director Name Role Phone Phong Stephens MD PCP Unavailable Robby Rajan APRN Unavailable Phong Stephens MD PCP Unavailable Carlos Middleton PCP Lorraine Hathaway MD PCP Mhcf, External Provider PCP Unavailable Encounter Details Care Team Description Date Type Department Maurice Durbin MD [address] [place] [address] Encounter for Long-Term (Current) Use of Anticoagulants (Primary Dx) 04/09/2007 Outpatient [facility] [address] [facility] Historical MEDICAID Social History Date [...] Priority Date/Time Associated Diag nosis PROTIME-INR Routine 04/09/2007 12:20 PM BILLET CHECKER documented in this encounter Results * PROTIME-INR (04/09/2007 12:20 PM BILLET CHECKER) PROTIME 9.6 9.6 - 11.0 Sec INTERFACE SYSTEM INR 0.93 (L) 2.0 - 3.0 INTERFACE SYSTEM Specimen Performing Organization Address City/State/Zipcode Ph one Number INTERFACE SYSTEM INTERFACE SYSTEM Refer to clinic/hospital department documented in this encounter Visit Diagnoses Diagnosis prison (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
--- OUTSIDE RECORDS SUMMARY | 2019-10-21 18:53 | XMS REPORT | Encounter Summary ---
Author Author [facility] Organization [facility] Address Unknown Phone Unavailable Care Team Providers Care Filler Picker Name Role Phone PCP Unavailable Encounter Details Care Team Description Date Type Department Conversion, History 06/13/2007 Orders Only HIS CONVERSION Social History Date [...]
--- OUTSIDE RECORDS SUMMARY | 2019-10-21 18:53 | XMS REPORT | Encounter Summary ---
Author Author [facility] Organization [facility] Address Unknown Phone Unavailable Care Team Providers Care Merchandising Execution Manager Name Role Phone Phong Stephens MD PCP Unavailable Robby Rajan APRN Unavailable Phong Stephens MD PCP Unavailable Carlos Middleton PCP Lorraine Hathaway MD PCP Mhcf, External Provider PCP Unavailable Encounter Details Care Team Description Date Type Department Maurice Durbin MD [address] [place] [address] Joint Pain-Pelvis (Primary Dx) 05/30/2007 Outpatient [facility] Consol idated [facility] [address] [place] [address] Social History Date Tobacco Use Types Packs/Day [...]
--- OUTSIDE RECORDS SUMMARY | 2019-10-21 18:53 | XMS REPORT | Encounter Summary ---
Author Author [facility] Organization [facility] Address Unknown Phone Unavailable Care Team Providers Care Independent Film Maker Name Role Phone PCP Unavailable Encounter Details Care Team Description Date Type Department Conversion, History 03/25/2007 Orders Only HIS CONVERSION Social History Date [...]
--- OUTSIDE RECORDS SUMMARY | 2019-10-21 18:53 | XMS REPORT | Encounter Summary ---
Author Author [facility] Organization [facility] Address Unknown Phone Unavailable Care Team Providers Care Chancery Clerk Name Role Phone Phong Stephens MD PCP Unavailable Robby Rajan APRN Unavailable Phong Stephens MD PCP Unavailable Carlos Middleton PCP Lorraine Hathaway MD PCP Mhcf, External Provider PCP Unavailable Encounter Details Care Team Description Date Type Department Jr Yemi Nunn DO [address] [place] [id number] Nausea Alone (Primary Dx) 04/14/2007 Emergency [facility] Emergency Department [address] [address] Social History Date Tobacco Use [...] of this encounter Visit Diagnoses Diagnosis Nausea alone - Primary documented in this encounter
--- OUTSIDE RECORDS SUMMARY | 2019-10-21 18:53 | XMS REPORT | Encounter Summary ---
Author Author [facility] Organization [facility] Address Unknown Phone Unavailable Care Team Providers Care Container Finishing Inspector Name Role Phone Phong Stephens MD PCP Unavailable Robby Rajan APRN Unavailable Phong Stephens MD PCP Unavailable Carlos Middleton PCP Lorraine Hathaway MD PCP Mhcf, External Provider PCP Unavailable Encounter Details Care Team Description Date Type Department Maurice Durbin MD [address] [place] [address] Joint Pain-Unspec (Primary Dx) 04/01/2007 Outpatient [facility] Consol idated [facility] [address] [place] [address] Social History Date Tobacco Use Types Packs/Day Years Used Never Assessed Sex Assigned at Date Recorded Not on file Industry Job Start Date Occupation Not on file Not on file Not on file Travel End Travel History Travel Start No recent travel history available. documented as of this encounter Plan of Treatment Not on filedocumented as of this encounter Visit Diagnoses Diagnosis Joint pain-unspec - Primary Pain in joint, site unspecified documented in this encounter
--- OUTSIDE RECORDS SUMMARY | 2019-10-21 18:53 | XMS REPORT | Encounter Summary ---
Author Author [facility] Organization [facility] Address Unknown Phone Unavailable Care Team Providers Care Detective Name Role Phone Phong Stephens MD PCP Unavailable Robby Rajan APRN Unavailable Phong Stephens MD PCP Unavailable Carlos Middleton PCP Lorraine Hathaway MD PCP Mhcf, External Provider PCP Unavailable Encounter Details Care Team Description Date Type Department Maurice Durbin MD [address] [place] [address] Joint Pain-Pelvis (Primary Dx) 05/30/2007 [facility]patient [facility] Historical [address] [address] Social History Date Tobacco Use [...]
--- OUTSIDE RECORDS SUMMARY | 2019-10-21 18:53 | XMS REPORT | Encounter Summary ---
Author Author [facility] Organization [facility] Address Unknown Phone Unavailable Care Team Providers Care Beam Dyer Recessed Vat Name Role Phone Phong Stephens MD PCP Unavailable Robby Rajan APRN Unavailable Phong Stephens MD PCP Unavailable Carlos Middleton PCP Lorraine Hathaway MD PCP Mhcf, External Provider PCP Unavailable Encounter Details Care Team Description Date Type Department Maurice Durbin MD [address] [place] [address] Syncope and Collapse (Primary Dx) 05/06/[address] [facility] [place] Cardiopulmonary [address] [place] [address] Social History Date Tobacco Use [...]
--- OUTSIDE RECORDS SUMMARY | 2019-10-21 18:53 | XMS REPORT | Encounter Summary ---
Author Author [facility] Organization [facility] Address Unknown Phone Unavailable Care Team Providers Care Generation Mechanic Helper Name Role Phone Phong Stephens MD PCP Unavailable Robby Rajan APRN Unavailable Phong Stephens MD PCP Unavailable Carlos Middleton PCP Lorraine Hathaway MD PCP Mhcf, External Provider PCP Unavailable Encounter Details Care Team Description Date Type Department Maurice Durbin MD [address] [place] [address] Observation for Unspecified Suspected Co ndition (Primary Dx) 05/01/2007 Outpatient [facility] [address] [place] [address] Social History Date Tobacco Use [...] as of this encounter Visit Diagnoses Diagnosis Observation for unspecified suspected c ondition - Primary documented in this encounter
--- OUTSIDE RECORDS SUMMARY | 2019-10-21 18:53 | XMS REPORT | Encounter Summary ---
Author Author [facility] Organization [facility] Address Unknown Phone Unavailable Care Team Providers Care Communications Technician Name Role Phone Phong Stephens MD PCP Unavailable Robby Rajan APRN Unavailable Phong Stephens MD PCP Unavailable Carlos Middleton PCP Lorraine Hathaway MD PCP Mhcf, External Provider PCP Unavailable Encounter Details Care Team Description Date Type Department Saturnino Te[place] [address] [facility] [place] [id number] Phong White MD [address] [place] [address] Nausea Alone (Primary Dx) 04/27/2007 Emergency [facility] Emergency Department [address] [address] Social History Date Tobacco Use [...]
--- OUTSIDE RECORDS SUMMARY | 2019-10-21 18:53 | XMS REPORT | Encounter Summary ---
Author Author [facility] Organization [facility] Address Unknown Phone Unavailable Care Team Providers Care Middle [employer] Humanities Teacher Name Role Phone PCP Unavailable Encounter Details Care Team Description Date Type Department Conversion, History 06/27/2007 Orders Only HIS CONVERSION Social History Date [...]
--- OUTSIDE RECORDS SUMMARY | 2019-10-21 18:53 | XMS REPORT | Encounter Summary ---
Author Author [facility] Organization [facility] Address Unknown Phone Unavailable Care Team Providers Care Investment Analyst Name Role Phone Phong Stephens MD PCP Unavailable Robby Rajan APRN Unavailable Phong Stephens MD PCP Unavailable Carlos Middleton PCP Lorraine Hathaway MD PCP Mhcf, External Provider PCP Unavailable Encounter Details Care Team Description Date Type Department Maurice Durbin MD [address] [place] [address] Other Malaise and Fatigue (Primary Dx) 05/22/2007 Outpatient [facility] [address] [facility] Historical MEDICAID Social History Date Tobacco Use [...] Associated Diag nosis CBC WITH DIFFERENTIAL Routine 05/22/2007 3:15 PM PROJ MGR SEDIMENTATION RATE Routine 05/22/2007 3:15 PM PROJ MGR RHEUMATOID FACTOR Routine 05/22/2007 3:15 PM PROJ MGR JONELLE SCREEN W/REFLEX Routine 05/22/2007 3:15 PM PROJ MGR COMPREHENSIVE METABOLIC Routine 05/22/2007 PANEL 3:15 PM PROJ MGR documented in this encounter Results * JONELLE (05/22/2007 3:15 PM PROJ MGR) [facility] JONELLE NEGATIVE NEGATIVE INTERFACE Comment: SYSTEM Test performed at [employer] [facility] [address] [place] [address] Specimen Narrative Performed At COMMENT: FATIGUE, ASTHMA INTERFACE SYSTEM Performing Organization Address [facility] one Number INTERFACE SYSTEM INTERFACE SYSTEM Refer to clinic/hospital department * RHEUMATOID FACTOR (05/22/2007 3:15 PM PROJ MGR) [facility] RHEUMATOID 8 <14 IU/mL INTERFACE FACTOR Comment: SYSTEM Test performed at [employer] [place] [id number] [place] [phone] Specimen Narrative Performed At COMMENT: FATIGUE, ASTHMA INTERFACE SYSTEM Performing Organization Address [facility] Ph one Number INTERFACE SYSTEM INTERFACE SYSTEM Refer to clinic/hospital department * SEDIMENTATION RATE (05/22/2007 3:15 PM PROJ MGR) [facility] ESR 15 0 - 20 mm/hr INTERFACE (SEDIMENTATION SYSTEM RATE) Specimen Narrative Performed At COMMENT: FATIGUE, ASTHMA INTERFACE SYSTEM Performing Organization Address [facility] Ph one Number INTERFACE SYSTEM INTERFACE SYSTEM Refer to clinic/hospital department * CBC WITH DIFFERENTIAL (05/22/2007 3:15 PM PROJ MGR) [facility] WBC 6.02 4.0 - 10.8 x10E3 INTERFACE SYSTEM RBC 4.12 (L) 4.2 - 5.4 x10E6 INTERFACE SYSTEM HEMOGLOBIN 13.0 12.0 - 16.0 g/dL INTERFACE SYSTEM HEMATOCRIT 37.9 37 - 47 % INTERFACE SYSTEM MCV 92.0 81.0 - 102 fL INTERFACE SYSTEM MCH 31.6 27 - 33 pg INTERFACE SYSTEM MCHC 34.3 32 - 38 g/dL INTERFACE SYSTEM RDW 13.4 12.1 - 16.7 % INTERFACE SYSTEM PLATELETS 156 130 - 400 x10E3 INTERFACE SYSTEM MPV 8.8 7.4 - 10.4 fL INTERFACE SYSTEM NEUTROPHILS 59.3 37.0 - 75.0 % INTERFACE SYSTEM LYMPHOCYTES 33.2 10.0 - 50.0 % INTERFACE SYSTEM MONOCYTES 5.3 0.0 - 12.0 % INTERFACE SYSTEM EOSINOPHILS 1.8 0.0 - 7.0 % INTERFACE SYSTEM BASOPHILS 0.4 0.0 - 2.5 % INTERFACE SYSTEM NEUTROPHIL 3.57 2.0 - 6.9 x10E3 INTERFACE ABSOLUTE SYSTEM LYMPHOCYTE 2.00 0.6 - 3.4 x10E3 INTERFACE ABSOLUTE SYSTEM MONOCYTE 0.32 0.0 - 0.9 x10E3 INTERFACE ABSOLUTE SYSTEM EOSINOPHIL 0.11 0.0 - 0.7 x10E3 INTERFACE ABSOLUTE SYSTEM BASOPHILS 0.03 0 - 0.2 x10E3 INTERFACE ABSOLUTE SYSTEM Specimen Narrative Performed At COMMENT: FATIGUE, ASTHMA INTERFACE SYSTEM Performing Organization Address [facility] one Number INTERFACE SYSTEM INTERFACE SYSTEM Refer to clinic/hospital department * COMPREHENSIVE METABOLIC PANEL (05/22/2007 3:15 PM PROJ MGR) GLUCOSE 92 70 - 110 mg/dl INTERFACE SYSTEM BUN 18.0 7 - 20 mg/dl INTERFACE SYSTEM CREATININE 1.0 0.6 - 1.0 mg/dl INTERFACE SYSTEM BUN/CREAT RATIO 18.0 10 - 20 INTERFACE SYSTEM GFR 67 >90 ml/min INTERFACE SYSTEM SODIUM 142 135 - 145 mmol/L INTERFACE SYSTEM POTASSIUM 4.0 3.3 - 4.8 mmol/L INTERFACE SYSTEM CHLORIDE 109 (H) 98 - 107 mmol/L INTERFACE SYSTEM CO2 21.0 (L) 22 - 31 mmol/L INTERFACE SYSTEM ANION GAP 16 4 - 20 INTERFACE SYSTEM CALCIUM 9.1 8.5 - 10.1 mg/dl INTERFACE SYSTEM ALBUMIN 3.7 3.4 - 5.0 g/dl INTERFACE SYSTEM TOTAL PROTEIN 6.8 6.4 - 8.2 g/dl INTERFACE SYSTEM GLOBULIN (CALC) 3.1 INTERFACE SYSTEM ALBUMIN/GLOBULI 1.2 INTERFACE N RATIO SYSTEM BILIRUBIN TOTAL 0.2 <1.1 mg/dl INTERFACE SYSTEM ALKALINE 126 50 - 136 IU/L INTERFACE PHOSPHATASE SYSTEM AST 21 10 - 40 IU/L INTERFACE SYSTEM ALT 44 25 - 70 IU/L INTERFACE SYSTEM Specimen Narrative Performed At COMMENT: FATIGUE, ASTHMA INTERFACE SYSTEM Performing Organization Address [facility] Ph one Number INTERFACE SYSTEM INTERFACE SYSTEM Refer to clinic/hospital department documented in this encounter Visit Diagnoses Diagnosis Other malaise and fatigue - Primary documented in this encounter
--- OUTSIDE RECORDS SUMMARY | 2019-10-21 18:53 | XMS REPORT | Encounter Summary ---
Author Author [facility] Organization [facility] Address Unknown Phone Unavailable Care Team Providers Care Equalizer Operator Name Role Phone Phong Stephens MD PCP Unavailable Robby Rajan APRN Unavailable Phong Stephens MD PCP Unavailable Carlos Middleton PCP Lorraine Hathaway MD PCP Mhcf, External Provider PCP Unavailable Encounter Details Care Team Description Date Type Department Maurice Durbin MD [address] [place] [address] Other Malaise and Fatigue (Primary Dx) 05/22/2007 Outpatient [facility] Consol idated Historical [facility] [address] [place] [address] Social History Date Tobacco Use Types Packs/Day Years Used Never Assessed Sex Assigned at Date Recorded Not on file Industry Job Start Date Occupation Not on file Not on file Not on file Travel End Travel History Travel Start No recent travel history available. documented as of this encounter Plan of Treatment Not on filedocumented as of this encounter Visit Diagnoses Diagnosis Other malaise and fatigue - Primary documented in this encounter
--- OUTSIDE RECORDS SUMMARY | 2019-10-21 18:53 | XMS REPORT | Encounter Summary ---
Author Author [facility] Organization [facility] Address Unknown Phone Unavailable Care Team Providers Care Dials Supervisor Name Role Phone Phong Stephens MD PCP Unavailable Robby Rajan APRN Unavailable Phong Stephens MD PCP Unavailable Carlos Middleton PCP Lorraine Hathaway MD PCP [facility], External Provider PCP Unavailable Encounter Details Care Team Description Date Type Department Lavell Leong Jr., MD [address] [place] [address] DR [address] [place] [address] Sprain Rotator Cuff (Primary Dx) 04/29/2007 Outpatient [facility] SURG Historical Social History [...] Priority Date/Time Associated Diag nosis PROTIME-INR Routine 04/29/2007 8:38 AM HOT TAMALE WORKER GLUCOSE LEVEL Routine 04/29/2007 8:38 AM HOT TAMALE WORKER documented in this encounter Results * PROTIME-INR (04/29/2007 8:38 AM HOT TAMALE WORKER) PROTIME 9.8 9.6 - 11.0 Sec INTERFACE SYSTEM INR 0.95 (L) 2.0 - 3.0 INTERFACE SYSTEM Specimen Narrative Performed At Preop Test? Y INTERFACE SYSTEM COMMENT: OPS#8 Performing Organization Address [facility] Ph one Number INTERFACE SYSTEM INTERFACE SYSTEM Refer to clinic/hospital department * GLUCOSE LEVEL (04/29/2007 8:38 AM HOT TAMALE WORKER) GLUCOSE 93 70 - 110 mg/dl INTERFACE SYSTEM Specimen Narrative Performed At Preop Test? Y INTERFACE SYSTEM COMMENT: OPS#8 Performing Organization Address [facility] Ph one Number INTERFACE SYSTEM INTERFACE SYSTEM Refer to clinic/hospital department documented in this encounter Visit Diagnoses Diagnosis Sprain rotator cuff - Primary Rotator cuff (capsule) sprain documented in this encounter
--- OUTSIDE RECORDS SUMMARY | 2019-10-21 18:53 | XMS REPORT | Encounter Summary ---
Author Author [facility] Organization [facility] Address Unknown Phone Unavailable Care Team Providers Care Data Warehouse Architect Name Role Phone Phong Stephens MD PCP Unavailable Robby Rajan APRN Unavailable Phong Stephens MD PCP Unavailable Carlos Middleton PCP Lorraine Hathaway MD PCP [facility]cf, External Provider PCP Unavailable Encounter Details Care Team Description Date Type Department Maurice Durbin MD [address] [place] [address] Routine Medical Exam (Primary Dx) 05/03/2007 Outpatient [facility] Consol idated [facility] [address] [place] [address] Social History Date Tobacco Use Types Packs/Day [...]
--- OUTSIDE RECORDS SUMMARY | 2019-10-21 18:53 | XMS REPORT | Encounter Summary ---
Author Author [facility] Organization [facility] Address Unknown Phone Unavailable Care Team Providers Care Core Manager Name Role Phone Phong Stephens MD PCP Unavailable Robby Rajan APRN Unavailable Phong Stephens MD PCP Unavailable Carlos Middleton PCP Lorraine Hathaway MD PCP M[facility]cf, External Provider PCP Unavailable Encounter Details Care Team Description Date Type Department Maurice Durbin MD [address] [place] [address] Other Chronic Pain (Primary Dx) 06/13/2007 Outpatient [facility] Consol idated Historical [facility] [address] [place] [address] Social History Date Tobacco Use Types Packs/Day Years Used Never Assessed Sex Assigned at Date Recorded Not on file Industry Job Start Date Occupation Not on file Not on file Not on file Travel End Travel History Travel Start No recent travel history available. documented as of this encounter Plan of Treatment Not on filedocumented as of this encounter Visit Diagnoses Diagnosis Other chronic pain - Primary documented in this encounter
--- OUTSIDE RECORDS SUMMARY | 2019-10-21 18:53 | XMS REPORT | Encounter Summary ---
Author Author [facility] Organization [facility] Address Unknown Phone Unavailable Care Team Providers Care Front Desk Associate Name Role Phone Phong Stephens MD PCP Unavailable Robby Rajan APRN Unavailable Phong Stephens MD PCP Unavailable Carlos Middleton PCP Lorraine Hathaway MD PCP [facility], External Provider PCP Unavailable Encounter Details Care Team Description Date Type Department Maurice Durbin MD [address] [place] [address] Abdominal Pain, Unspecified Site (Primar y Dx) 03/22/2007 Outpatient [facility] [address] MED ICARE [...] Priority Date/Time Associated Diag nosis CBC WITH MANUAL Routine 03/22/2007 DIFFERENTIAL 9:49 AM CDT LIPASE Routine 03/22/2007 9:49 AM CDT AMYLASE Routine 03/22/2007 9:49 AM CDT COMPREHENSIVE METABOLIC Routine 03/22/2007 PANEL 9:49 AM CDT documented in this encounter Results * CBC WITH MANUAL DIFFERENTIAL (03/22/2007 9:49 AM CDT) WBC 5.36 4.0 - 10.8 x10E3 INTERFACE SYSTEM RBC 4.65 4.2 - 5.4 x10E6 INTERFACE SYSTEM HEMOGLOBIN 14.8 12.0 - 16.0 g/dL INTERFACE SYSTEM HEMATOCRIT 42.0 37 - 47 % INTERFACE SYSTEM MCV 90.3 81.0 - 102 fL INTERFACE SYSTEM MCH 31.8 27 - 33 pg INTERFACE SYSTEM MCHC 35.2 32 - 38 g/dL INTERFACE SYSTEM RDW 14.2 12.1 - 16.7 % INTERFACE SYSTEM PLATELETS 160 130 - 400 x10E3 INTERFACE SYSTEM MPV 8.7 7.4 - 10.4 fL INTERFACE SYSTEM NEUTROPHILS 51.4 37.0 - 75.0 % INTERFACE SYSTEM LYMPHOCYTES 39.9 10.0 - 50.0 % INTERFACE SYSTEM MONOCYTES 4.9 0.0 - 12.0 % INTERFACE SYSTEM EOSINOPHILS 3.3 0.0 - 7.0 % INTERFACE SYSTEM BASOPHILS 0.5 0.0 - 2.5 % INTERFACE SYSTEM NEUTROPHIL 2.76 2.0 - 6.9 x10E3 INTERFACE ABSOLUTE SYSTEM LYMPHOCYTE 2.14 0.6 - 3.4 x10E3 INTERFACE ABSOLUTE SYSTEM MONOCYTE 0.26 0.0 - 0.9 x10E3 INTERFACE ABSOLUTE SYSTEM EOSINOPHIL 0.18 0.0 - 0.7 x10E3 INTERFACE ABSOLUTE SYSTEM BASOPHILS 0.02 0 - 0.2 x10E3 INTERFACE ABSOLUTE SYSTEM BASOPHILS 1 % INTERFACE SYSTEM EOSINOPHILS 2 % INTERFACE SYSTEM BANDS 1 % INTERFACE SYSTEM NEUTROPHILS, 47 % INTERFACE SEG SYSTEM LYMPHOCYTES 42 % INTERFACE SYSTEM MONOCYTE 6 % INTERFACE SYSTEM ATYPICAL 1 % INTERFACE LYMPHOCYTE SYSTEM PLATELET EST. Normal INTERFACE SYSTEM WBC ESTIMATE Normal INTERFACE SYSTEM Specimen Narrative Performed At Preop Test? N INTERFACE SYSTEM COMMENT: ABD PAIN, BACK PAIN Performing Organization Address [facility] one Number INTERFACE SYSTEM INTERFACE SYSTEM Refer to clinic/hospital department * LIPASE (03/22/2007 9:49 AM CDT) LIPASE 158 114 - 286 U/L INTERFACE SYSTEM Specimen Narrative Performed At Preop Test? N INTERFACE SYSTEM COMMENT: ABD PAIN, BACK PAIN FX RESULTS? N Performing Organization Address [facility] Ph one Number INTERFACE SYSTEM INTERFACE SYSTEM Refer to clinic/hospital department * AMYLASE (03/22/2007 9:49 AM CDT) AMYLASE 19 (L) 25 - 115 IU/L INTERFACE SYSTEM Specimen Narrative Performed At Preop Test? N INTERFACE SYSTEM COMMENT: ABD PAIN, BACK PAIN FX RESULTS? N Performing Organization Address [facility] one Number INTERFACE SYSTEM INTERFACE SYSTEM Refer to clinic/hospital department * COMPREHENSIVE METABOLIC PANEL (03/22/2007 9:49 AM CDT) GLUCOSE 96 70 - 110 mg/dl INTERFACE SYSTEM BUN 13.0 7 - 20 mg/dl INTERFACE SYSTEM CREATININE 0.7 0.6 - 1.0 mg/dl INTERFACE SYSTEM BUN/CREAT RATIO 18.6 10 - 20 INTERFACE SYSTEM GFR 102 >90 ml/min INTERFACE SYSTEM SODIUM 137 135 - 145 mmol/L INTERFACE SYSTEM POTASSIUM 3.6 3.3 - 4.8 mmol/L INTERFACE SYSTEM CHLORIDE 105 98 - 107 mmol/L INTERFACE SYSTEM CO2 21.7 (L) 22 - 31 mmol/L INTERFACE SYSTEM ANION GAP 14 4 - 20 INTERFACE SYSTEM CALCIUM 8.3 (L) 8.5 - 10.1 mg/dl INTERFACE SYSTEM ALBUMIN 3.3 (L) 3.4 - 5.0 g/dl INTERFACE SYSTEM TOTAL PROTEIN 6.7 6.4 - 8.2 g/dl INTERFACE SYSTEM GLOBULIN (CALC) 3.4 INTERFACE SYSTEM ALBUMIN/GLOBULI 1.0 INTERFACE N RATIO SYSTEM BILIRUBIN TOTAL 0.3 <1.1 mg/dl INTERFACE SYSTEM ALKALINE 119 50 - 136 IU/L INTERFACE PHOSPHATASE SYSTEM AST 19 10 - 40 IU/L INTERFACE SYSTEM ALT 51 25 - 70 IU/L INTERFACE SYSTEM Specimen Narrative Performed At Preop Test? N INTERFACE SYSTEM COMMENT: ABD PAIN, BACK PAIN FX RESULTS? N Performing Organization Address [facility] one Number INTERFACE SYSTEM INTERFACE SYSTEM Refer to clinic/hospital department documented in this encounter Visit Diagnoses Diagnosis Abdominal pain, unspecified site - Prim kierra documented in this encounter
--- OUTSIDE RECORDS SUMMARY | 2019-10-21 18:53 | XMS REPORT | Encounter Summary ---
Author Author [facility] Organization [facility] Address Unknown Phone Unavailable Care Team Providers Care Production Estimator Name Role Phone Phong Stephens MD PCP Unavailable Robby Rajan APRN Unavailable Phong Stephens MD PCP Unavailable Carlos Middleton PCP Lorraine Hathaway MD PCP Mhcf, External Provider PCP Unavailable Encounter Details Care Team Description Date Type Department Maurice Durbin MD [address] [place] [address] Chronic Airway Obstruction, not Elsewher e Classified (Primary Dx) 07/22/2007 Outpatient [facility] Consol idated Historical [facility] [address] [place] [address] Social History Date Tobacco Use Types Packs/Day [...]
--- OUTSIDE RECORDS SUMMARY | 2019-10-21 18:54 | XMS REPORT | Encounter Summary ---
Author Author [facility] Organization [facility] Address Unknown Phone Unavailable Care Team Providers Care Tax Record Clerk Name Role Phone Phong Stephens MD PCP Unavailable Robby Rajan APRN Unavailable Phong Stephens MD PCP Unavailable Carlos Middleton PCP Lorraine Hathaway MD PCP Mhcf, External Provider PCP Unavailable Encounter Details Care Team Description Date Type Department Lavell Leong Jr., MD [address] [place] [address] [address] [place] [address] Unspecified Disorders of Bursae and Tend ons in Shoulder Region (Primary Dx) 03/22/2007 [facility] [address] [address] Social History Date Tobacco [...] as of this encounter Visit Diagnoses Diagnosis Disorders of bursae and tendons in shou lder region, unspecified - Primary documented in this encounter
--- OUTSIDE RECORDS SUMMARY | 2019-10-21 18:54 | XMS REPORT | Encounter Summary ---
Author Author [facility] Organization [facility] Address Unknown Phone Unavailable Care Team Providers Care Licensed Insurance Agent Name Role Phone Phong Stephens MD PCP Unavailable Robby Rajan APRN Unavailable Phong Stephens MD PCP Unavailable Carlos Middleton PCP Lorraine Hathaway MD PCP Mhcf, External Provider PCP Unavailable Encounter Details Care Team Description Date Type Department Saturnino Tejada [address] [facility] A [place] [id number] Phong White MD [address] [place] [address] Unspecified Migraine without Mention of Intractable Migraine (Primary Dx) 02/21/2007 Emergency [facility] Emergency Department [address] [address] Social History Date Tobacco Use [...]
--- OUTSIDE RECORDS SUMMARY | 2019-10-21 18:54 | XMS REPORT | Encounter Summary ---
Author Author [facility] Organization [facility] Address Unknown Phone Unavailable Care Team Providers Care Patrol Man Name Role Phone Phong Stephens MD PCP Unavailable Robby Rajan APRN Unavailable Phong Stephens MD PCP Unavailable Carlos Middleton PCP Lorraine Hathaway MD PCP Mhcf, External Provider PCP Unavailable Encounter Details Care Team Description Date Type Department Maurice Durbin MD [address] [place] [address] Dysuria (Primary Dx) 11/29/2006 Outpatient [facility] Consol idated Historical [facility] [address] [place] [address] Social History Date Tobacco Use Types Packs/Day Years Used Never Assessed Sex Assigned at Date Recorded Not on file Industry Job Start Date Occupation Not on file Not on file Not on file Travel End Travel History Travel Start No recent travel history available. documented as of this encounter Plan of Treatment Not on filedocumented as of this encounter Visit Diagnoses Diagnosis Dysuria - Primary documented in this encounter
--- OUTSIDE RECORDS SUMMARY | 2019-10-21 18:54 | XMS REPORT | Encounter Summary ---
Author Author [facility] Organization [facility] Address Unknown Phone Unavailable Care Team Providers Care Colored Liquid Plastic Applier Name Role Phone Phong Stephens MD PCP Unavailable Robby Rajan APRN Unavailable Phong Stephens MD PCP Unavailable Carlos Middleton PCP Lorraine Hathaway MD PCP Mhcf, External Provider PCP Unavailable Encounter Details Care Team Description Date Type Department Jr Yemi Nunn DO [address] [place] [phone] Vomiting Alone (Primary Dx) 02/20/2007 Emergency [facility] Emergency Department [address] [address] Social History Date Tobacco Use [...] as of this encounter Visit Diagnoses Diagnosis Vomiting alone - Primary documented in this encounter
--- OUTSIDE RECORDS SUMMARY | 2019-10-21 18:54 | XMS REPORT | Encounter Summary ---
Author Author [facility] Organization [facility] Address Unknown Phone Unavailable Care Team Providers Care Patient Assessment Coordinator Name Role Phone Phong Stephens MD PCP Unavailable Robby Rajan APRN Unavailable Phong Stephens MD PCP Unavailable Carlos Middleton PCP Lorraine Hathaway MD PCP Mhcf, External Provider PCP Unavailable Encounter Details Care Team Description Date Type Department Maurice Durbin MD [address] [place] [address] Abdominal Pain, Unspecified Site (Primar y Dx) 03/22/2007 Outpatient [facility] Consol idated Historical [facility] [address] [place] [address] Social History Date Tobacco Use Types Packs/Day Years Used Never Assessed Sex Assigned at Date Recorded Not on file Industry Job Start Date Occupation Not on file Not on file Not on file Travel End Travel History Travel Start No recent travel history available. documented as of this encounter Plan of Treatment Not on filedocumented as of this encounter Visit Diagnoses Diagnosis Abdominal pain, unspecified site - Prim kierra documented in this encounter
--- OUTSIDE RECORDS SUMMARY | 2019-10-21 18:54 | XMS REPORT | Encounter Summary ---
Author Author [facility] Organization [facility] Address Unknown Phone Unavailable Care Team Providers Care Advertising Internship Name Role Phone Phong Stephens MD PCP Unavailable Robby Rajan APRN Unavailable Phong Stephens MD PCP Unavailable Carlos Middleton PCP Lorraine Hathaway MD PCP Mhcf, External Provider PCP Unavailable Encounter Details Care Team Description Date Type Department Maurice Durbin MD [address] [place] [address] Cough (Primary Dx) 02/12/2007 [facility] Historical [address] [address] Social History Date Tobacco Use [...]
--- OUTSIDE RECORDS SUMMARY | 2019-10-21 18:54 | XMS REPORT | Encounter Summary ---
Author Author [facility] Organization [facility] Address Unknown Phone Unavailable Care Team Providers Care Curatorial Specialist Name Role Phone Phong Stephens MD PCP Unavailable Robby Rajan APRN Unavailable Phong Stephens MD PCP Unavailable Carlos Middleton PCP Lorraine Hathaway MD PCP Mhcf, External Provider PCP Unavailable Encounter Details Care Team Description Date Type Department Lavell Lance MD Nausea with Vomiting (Primary Dx) 01/21/2007 Emergency [facility] Emergency Department [address] [address] Social History Date Tobacco [...] Associated Diag nosis CBC WITH MANUAL Routine 01/22/2007 DIFFERENTIAL 1:51 AM CDT documented in this encounter Results * CBC WITH MANUAL DIFFERENTIAL (01/22/2007 1:51 AM CDT) WBC 5.12 4.0 - 10.8 x10E3 INTERFACE SYSTEM RBC 4.49 4.2 - 5.4 x10E6 INTERFACE SYSTEM HEMOGLOBIN 14.5 12.0 - 16.0 g/dL INTERFACE SYSTEM HEMATOCRIT 42.2 37 - 47 % INTERFACE SYSTEM MCV 94.0 81.0 - 102 fL INTERFACE SYSTEM MCH 32.3 27 - 33 pg INTERFACE SYSTEM MCHC 34.4 32 - 38 g/dL INTERFACE SYSTEM RDW 13.8 12.1 - 16.7 % INTERFACE SYSTEM PLATELETS 150 130 - 400 x10E3 INTERFACE SYSTEM MPV 8.5 7.4 - 10.4 fL INTERFACE SYSTEM NEUTROPHILS 50.0 37.0 - 75.0 % INTERFACE SYSTEM LYMPHOCYTES 38.6 10.0 - 50.0 % INTERFACE SYSTEM MONOCYTES 8.2 0.0 - 12.0 % INTERFACE SYSTEM EOSINOPHILS 2.8 0.0 - 7.0 % INTERFACE SYSTEM BASOPHILS 0.3 0.0 - 2.5 % INTERFACE SYSTEM NEUTROPHIL 2.56 2.0 - 6.9 x10E3 INTERFACE ABSOLUTE SYSTEM LYMPHOCYTE 1.98 0.6 - 3.4 x10E3 INTERFACE ABSOLUTE SYSTEM MONOCYTE 0.42 0.0 - 0.9 x10E3 INTERFACE ABSOLUTE SYSTEM EOSINOPHIL 0.14 0.0 - 0.7 x10E3 INTERFACE ABSOLUTE SYSTEM BASOPHILS 0.02 0 - 0.2 x10E3 INTERFACE ABSOLUTE SYSTEM EOSINOPHILS 5 % INTERFACE SYSTEM BANDS 1 % INTERFACE SYSTEM NEUTROPHILS, 52 % INTERFACE SEG SYSTEM LYMPHOCYTES 34 % INTERFACE SYSTEM MONOCYTE 8 % INTERFACE SYSTEM PLATELET EST. Normal INTERFACE SYSTEM WBC ESTIMATE Normal INTERFACE SYSTEM Specimen Narrative Performed At Preop Test? N INTERFACE SYSTEM Performing Organization Address City/State/Zipcode Ph one Number INTERFACE SYSTEM INTERFACE SYSTEM Refer to clinic/hospital department documented in this encounter Visit Diagnoses Diagnosis Nausea with vomiting - Primary documented in this encounter
--- OUTSIDE RECORDS SUMMARY | 2019-10-21 18:54 | XMS REPORT | Encounter Summary ---
Author Author [facility] Organization [facility] Address Unknown Phone Unavailable Care Team Providers Care Legal Billing Coordinator Name Role Phone Phong Stephens MD PCP Unavailable Robby Rajan APRN Unavailable Phong Stephens MD PCP Unavailable Carlos Middleton PCP Lorraine Hathaway MD PCP Mhcf, External Provider PCP Unavailable Encounter Details Care Team Description Date Type Department Maurice Durbin MD [address] [place] [address] Observation for Unspecified Suspected Co ndition (Primary Dx) 12/20/2006 Outpatient [facility] [address] [place] [address] Social History Date Tobacco Use [...]
--- OUTSIDE RECORDS SUMMARY | 2019-10-21 18:54 | XMS REPORT | Encounter Summary ---
Author Author [facility] Organization [facility] Address Unknown Phone Unavailable Care Team Providers Care Oil And Gas Superintendent Name Role Phone Phong Stephens MD PCP Unavailable Robby Rajan APRN Unavailable Phong Stephens MD PCP Unavailable Carlos Middleton PCP Lorraine Hathaway MD PCP Mhcf, External Provider PCP Unavailable Encounter Details Care Team Description Date Type Department Kalyan Cruz ARNP [address] [place] [address] Nausea with Vomiting (Primary Dx) 01/16/2007 Emergency [facility] Emergency Department [address] [address] Social History Date Tobacco Use [...]
--- OUTSIDE RECORDS SUMMARY | 2019-10-21 18:54 | XMS REPORT | Encounter Summary ---
Author Author [facility] Organization [facility] Address Unknown Phone Unavailable Care Team Providers Care Locker Room Manager Name Role Phone Phong Stephens MD PCP Unavailable Robby Rajan APRN Unavailable Phong Stephens MD PCP Unavailable Carlos Middleton PCP Lorraine Hathaway MD PCP Mhcf, External Provider PCP Unavailable Encounter Details Care Team Description Date Type Department Kalyan Cruz ARNP [address] [place] [address] Unspecified Hemorrhoids with Other Compl ication (Primary Dx) 12/08/2006 Emergency [facility] Emergency Department [address] [address] Social History Date Tobacco [...] Priority Date/Time Associated Diag nosis PROTIME-INR Routine 12/08/2006 11:05 PM CDT CBC WITH MANUAL Routine 12/08/2006 DIFFERENTIAL 11:05 PM CDT URINALYSIS W/REFLEX Routine 12/08/2006 MICROSCOPIC documented in this encounter Results * CBC WITH MANUAL DIFFERENTIAL (12/08/2006 11:05 PM CDT) WBC 8.23 4.0 - 10.8 x10E3 INTERFACE SYSTEM RBC 4.52 4.2 - 5.4 x10E6 INTERFACE SYSTEM HEMOGLOBIN 14.5 12.0 - 16.0 g/dL INTERFACE SYSTEM HEMATOCRIT 41.6 37 - 47 % INTERFACE SYSTEM MCV 92.1 81.0 - 102 fL INTERFACE SYSTEM MCH 32.0 27 - 33 pg INTERFACE SYSTEM MCHC 34.8 32 - 38 g/dL INTERFACE SYSTEM RDW 13.3 12.1 - 16.7 % INTERFACE SYSTEM PLATELETS 163 130 - 400 x10E3 INTERFACE SYSTEM MPV 8.8 7.4 - 10.4 fL INTERFACE SYSTEM NEUTROPHILS 57.6 37.0 - 75.0 % INTERFACE SYSTEM LYMPHOCYTES 33.8 10.0 - 50.0 % INTERFACE SYSTEM MONOCYTES 5.4 0.0 - 12.0 % INTERFACE SYSTEM EOSINOPHILS 2.7 0.0 - 7.0 % INTERFACE SYSTEM BASOPHILS 0.5 0.0 - 2.5 % INTERFACE SYSTEM NEUTROPHIL 4.75 2.0 - 6.9 x10E3 INTERFACE ABSOLUTE SYSTEM LYMPHOCYTE 2.78 0.6 - 3.4 x10E3 INTERFACE ABSOLUTE SYSTEM MONOCYTE 0.44 0.0 - 0.9 x10E3 INTERFACE ABSOLUTE SYSTEM EOSINOPHIL 0.22 0.0 - 0.7 x10E3 INTERFACE ABSOLUTE SYSTEM BASOPHILS 0.04 0 - 0.2 x10E3 INTERFACE ABSOLUTE SYSTEM EOSINOPHILS 2 % INTERFACE SYSTEM NEUTROPHILS, 61 % INTERFACE SEG SYSTEM LYMPHOCYTES 34 % INTERFACE SYSTEM MONOCYTE 3 % INTERFACE SYSTEM PLATELET EST. Normal INTERFACE SYSTEM WBC ESTIMATE Normal INTERFACE SYSTEM Specimen Performing Organization Address City/[facility] Ph one Number INTERFACE SYSTEM INTERFACE SYSTEM Refer to clinic/hospital department * PROTIME-INR (12/08/2006 11:05 PM CDT) Pathologist [facility] Emergency Department PROTIME 50.5 (H) 9.6 - 11.0 Sec INTERFACE SYSTEM INR 5.75 (HH) 2.0 - 3.0 INTERFACE Comment: SYSTEM CALLED TO FERMIN AT 2330 Specimen Performing Organization Address [facility] Ph one Number INTERFACE SYSTEM INTERFACE SYSTEM Refer to clinic/hospital department * URINALYSIS (12/08/2006) GLUCOSE UA Negative Negative mg/dl INTERFACE SYSTEM BILIRUBIN UA Small Negative INTERFACE SYSTEM KETONES UA Negative Negative mg/dl INTERFACE SYSTEM SPECIFIC >=1.030 INTERFACE GRAVITY UA SYSTEM PH UA 5.5 INTERFACE SYSTEM PROTEIN UA Negative Negative mg/dl INTERFACE SYSTEM UROBILINOGEN UA 1.0 0.2 - 1.0 EU/dl INTERFACE SYSTEM NITRITE UA Negative Negative INTERFACE SYSTEM BLOOD UA Large (H) Negative INTERFACE SYSTEM LEUKOCYTE Trace Negative INTERFACE ESTERASE UA SYSTEM WBC UA 0-5 0 - 5 /HPF INTERFACE SYSTEM RBC UA 35-40 (H) 0 - 5 /HPF INTERFACE SYSTEM EPITHELIAL 4+ sq INTERFACE CELLS, URINE SYSTEM WBC CLUMPS Neg Negative /LPF INTERFACE SYSTEM CASTS, URINE Neg 0-4 Hyaline /LPF INTERFACE SYSTEM CRYSTALS, URINE Neg INTERFACE SYSTEM BACTERIA UA 2+ (H) NEG INTERFACE SYSTEM COMMENT, URINE See Culture Report. INTERFACE SYSTEM Specimen Performing Organization Address City/State/Zipcode Ph one Number INTERFACE SYSTEM INTERFACE SYSTEM Refer to clinic/hospital department documented in this encounter Visit Diagnoses Diagnosis Unspecified hemorrhoids with other comp lication - Primary documented in this encounter
--- OUTSIDE RECORDS SUMMARY | 2019-10-21 18:54 | XMS REPORT | Encounter Summary ---
Author Author [facility] Organization [facility] Address Unknown Phone Unavailable Care Team Providers Care Pricing Director Name Role Phone Phong Stephens MD PCP Unavailable Robby Rajan APRN Unavailable Phong Stephens MD PCP Unavailable Carlos Middleton PCP Lorraine Hathaway MD PCP [facility], External Provider PCP Unavailable Encounter Details Care Team Description Date Type Department Lavell Lance MD Cough (Primary Dx) 01/27/2007 Emergency [facility] Emergency Department [address] [address] Social History Date Tobacco [...] Associated Diag nosis CBC WITH MANUAL Routine 01/27/2007 DIFFERENTIAL 10:25 PM CDT documented in this encounter Results * CBC WITH MANUAL DIFFERENTIAL (01/27/2007 10:25 PM CDT) WBC 9.53 4.0 - 10.8 x10E3 INTERFACE SYSTEM RBC 4.55 4.2 - 5.4 x10E6 INTERFACE SYSTEM HEMOGLOBIN 14.8 12.0 - 16.0 g/dL INTERFACE SYSTEM HEMATOCRIT 42.4 37 - 47 % INTERFACE SYSTEM MCV 93.1 81.0 - 102 fL INTERFACE SYSTEM MCH 32.6 27 - 33 pg INTERFACE SYSTEM MCHC 35.0 32 - 38 g/dL INTERFACE SYSTEM RDW 13.9 12.1 - 16.7 % INTERFACE SYSTEM PLATELETS 192 130 - 400 x10E3 INTERFACE SYSTEM MPV 8.9 7.4 - 10.4 fL INTERFACE SYSTEM NEUTROPHILS 62.9 37.0 - 75.0 % INTERFACE SYSTEM LYMPHOCYTES 30.1 10.0 - 50.0 % INTERFACE SYSTEM MONOCYTES 4.1 0.0 - 12.0 % INTERFACE SYSTEM EOSINOPHILS 2.4 0.0 - 7.0 % INTERFACE SYSTEM BASOPHILS 0.5 0.0 - 2.5 % INTERFACE SYSTEM NEUTROPHIL 5.99 2.0 - 6.9 x10E3 INTERFACE ABSOLUTE SYSTEM LYMPHOCYTE 2.86 0.6 - 3.4 x10E3 INTERFACE ABSOLUTE SYSTEM MONOCYTE 0.39 0.0 - 0.9 x10E3 INTERFACE ABSOLUTE SYSTEM EOSINOPHIL 0.23 0.0 - 0.7 x10E3 INTERFACE ABSOLUTE SYSTEM BASOPHILS 0.05 0 - 0.2 x10E3 INTERFACE ABSOLUTE SYSTEM EOSINOPHILS 3 % INTERFACE SYSTEM NEUTROPHILS, 62 % INTERFACE SEG SYSTEM LYMPHOCYTES 34 % INTERFACE SYSTEM MONOCYTE 1 % INTERFACE SYSTEM PLATELET EST. Normal INTERFACE SYSTEM WBC ESTIMATE Normal INTERFACE SYSTEM Specimen Narrative Performed At Preop Test? N INTERFACE SYSTEM Performing Organization Address City/State/Zipcode Ph one Number INTERFACE SYSTEM INTERFACE SYSTEM Refer to clinic/hospital department documented in this encounter Visit Diagnoses Diagnosis Cough - Primary documented in this encounter
--- OUTSIDE RECORDS SUMMARY | 2019-10-21 18:54 | XMS REPORT | Encounter Summary ---
Author Author [facility] Organization [facility] Address Unknown Phone Unavailable Care Team Providers Care All Round Logger Name Role Phone Phong Stephens MD PCP Unavailable Robby Rajan APRN Unavailable Phong Stephens MD PCP Unavailable Carlos Middleton PCP Lorraine Hathaway MD PCP [facility], External Provider PCP Unavailable Encounter Details Care Team Description Date Type Department Lavell Lance MD Nausea with Vomiting (Primary Dx) 01/07/2007 Emergency [facility] Emergency Department [address] [address] Social History Date Tobacco Use [...]
--- OUTSIDE RECORDS SUMMARY | 2019-10-21 18:54 | XMS REPORT | Encounter Summary ---
Author Author [facility] Organization [facility] Address Unknown Phone Unavailable Care Team Providers Care Fnp Name Role Phone Phong Stephens MD PCP Unavailable Robby Rajan APRN Unavailable Phong Stephens MD PCP Unavailable Carlos Middleton PCP Lorraine Hathaway MD PCP [facility], External Provider PCP Unavailable Encounter Details Care Team Description Date Type Department Kalyan Cruz ARNP [address] [place] [address] Dysuria (Primary Dx) 01/13/2007 Emergency [facility] Emergency Department [address] [address] Social History Date Tobacco Use [...] Name Priority Date/Time Associated Diag nosis URINALYSIS W/REFLEX Routine 01/13/2007 MICROSCOPIC 6:46 PM CDT documented in this encounter Results * URINALYSIS (01/13/2007 6:46 PM CDT) GLUCOSE UA Negative Negative mg/dl INTERFACE SYSTEM BILIRUBIN UA Negative Negative INTERFACE SYSTEM KETONES UA Negative Negative mg/dl INTERFACE SYSTEM SPECIFIC 1.020 INTERFACE GRAVITY UA SYSTEM PH UA 5.5 INTERFACE SYSTEM PROTEIN UA Negative Negative mg/dl INTERFACE SYSTEM UROBILINOGEN UA 0.2 0.2 - 1.0 EU/dl INTERFACE SYSTEM NITRITE UA Negative Negative INTERFACE SYSTEM BLOOD UA Large (H) Negative INTERFACE SYSTEM LEUKOCYTE Moderate (H) Negative INTERFACE ESTERASE UA SYSTEM WBC UA 45-50 (H) 0 - 5 /HPF INTERFACE SYSTEM RBC UA 5-10 (H) 0 - 5 /HPF INTERFACE SYSTEM EPITHELIAL 3+ sq INTERFACE CELLS, URINE SYSTEM WBC CLUMPS Neg Negative /LPF INTERFACE SYSTEM CASTS, URINE Neg 0-4 Hyaline /LPF INTERFACE SYSTEM CRYSTALS, URINE Neg INTERFACE SYSTEM BACTERIA UA 3+ (H) NEG INTERFACE SYSTEM COMMENT, URINE See Culture Report. INTERFACE SYSTEM Specimen Performing Organization Address City/State/Zipcode Ph one Number INTERFACE SYSTEM INTERFACE SYSTEM Refer to clinic/hospital department documented in this encounter Visit Diagnoses Diagnosis Dysuria - Primary documented in this encounter
--- OUTSIDE RECORDS SUMMARY | 2019-10-21 18:54 | XMS REPORT | Encounter Summary ---
Author Author [facility] Organization [facility] Address Unknown Phone Unavailable Care Team Providers Care Office Machine Repair Shop Supervisor Name Role Phone Phong Stephens MD PCP Unavailable Robby Rajan APRN Unavailable Phong Stephens MD PCP Unavailable Carlos Middleton PCP Lorraine Hathaway MD PCP [facility], External Provider PCP Unavailable Encounter Details Care Team Description Date Type Department Maurice Durbin MD [address] [place] [phone] Dysuria (Primary Dx) 11/29/2006 Outpatient [facility] [address] [facility] [...]
--- OUTSIDE RECORDS SUMMARY | 2019-10-21 18:54 | XMS REPORT | Encounter Summary ---
Author Author [facility] Organization [facility] Address Unknown Phone Unavailable Care Team Providers Care Rn Production Name Role Phone Phong Stephens MD PCP Unavailable Robby Rajan APRN Unavailable Phong Stephens MD PCP Unavailable Carlos Middleton PCP Lorraine Hathaway MD PCP [facility], External Provider PCP Unavailable Encounter Details Care Team Description Date Type Department Maurice Durbin MD [address] [place] [address] Joint Pain-Shlder (Primary Dx) 02/13/2007 [facility] Historical [address] [address] Social History Date Tobacco Use [...] of this encounter Visit Diagnoses Diagnosis Joint pain-shlder - Primary Pain in joint, shoulder region documented in this encounter
--- OUTSIDE RECORDS SUMMARY | 2019-10-21 18:54 | XMS REPORT | Encounter Summary ---
Author Author [facility] Organization [facility] Address Unknown Phone Unavailable Care Team Providers Care Senior Designer/Art Director Name Role Phone Phong Stephens MD PCP Unavailable Robby Rajan APRN Unavailable Phong Stephens MD PCP Unavailable Carlos Middleton PCP Lorraine Hathaway MD PCP [facility]cf, External Provider PCP Unavailable Encounter Details Care Team Description Date Type Department Maurice Durbin MD [address] [place] [address] Asthma, Unspecified (Primary Dx) 01/21/2007 Outpatient [facility] Consol idated [facility] [address] [place] [address] Social History Date Tobacco Use Types Packs/Day Years Used Never Assessed Sex Assigned at Date Recorded Not on file Industry Job Start Date Occupation Not on file Not on file Not on file Travel End Travel History Travel Start No recent travel history available. documented as of this encounter Plan of Treatment Not on filedocumented as of this encounter Visit Diagnoses Diagnosis Asthma, unspecified - Primary Unspecified asthma documented in this encounter
--- OUTSIDE RECORDS SUMMARY | 2019-10-21 18:54 | XMS REPORT | Encounter Summary ---
Author Author [facility] Organization [facility] Address Unknown Phone Unavailable Care Team Providers Care Body Corporate Manager Name Role Phone Phong Stephens MD PCP Unavailable Robby Rajan APRN Unavailable Phong Stephens MD PCP Unavailable Carlos Middleton PCP Lorraine Hathaway MD PCP M[facility]cf, External Provider PCP Unavailable Encounter Details Care Team Description Date Type Department Maurice Durbin MD [address] [place] [address] Pneumonia, Organism Unspecified (Primary Dx) 01/29/2007 Outpatient [facility] Consol idated [facility] [address] [place] [address] Social History Date Tobacco Use Types Packs/Day Years Used Never Assessed Sex Assigned at Date Recorded Not on file Industry Job Start Date Occupation Not on file Not on file Not on file Travel End Travel History Travel Start No recent travel history available. documented as of this encounter Plan of Treatment Not on filedocumented as of this encounter Visit Diagnoses Diagnosis Pneumonia, organism unspecified(486) - Primary Pneumonia, organism unspecified documented in this encounter
--- OUTSIDE RECORDS SUMMARY | 2019-10-21 18:54 | XMS REPORT | Encounter Summary ---
Author Author [facility] Organization [facility] Address Unknown Phone Unavailable Care Team Providers Care Assistant Superintendent For Curriculum Name Role Phone Phong Stephens MD PCP Unavailable Robby Rajan APRN Unavailable Phong Stephens MD PCP Unavailable Carlos Middleton PCP Lorraine Hathaway MD PCP [facility], External Provider PCP Unavailable Encounter Details Care Team Description Date Type Department Maurice Durbin MD [address] [place] [address] Joint Pain-Shlder (Primary Dx) 02/13/2007 Outpatient [facility] Consol idated [facility] [address] [place] [address] Social History Date Tobacco Use Types Packs/Day [...]
--- OUTSIDE RECORDS SUMMARY | 2019-10-21 18:54 | XMS REPORT | Encounter Summary ---
Author Author [facility] Organization [facility] Address Unknown Phone Unavailable Care Team Providers Care Ironer Hand Name Role Phone Phong Stephens MD PCP Unavailable Robby Rajan APRN Unavailable Phong Stephens MD PCP Unavailable Carlos Middleton PCP Lorraine Hathaway MD PCP [facility]cf, External Provider PCP Unavailable Encounter Details Care Team Description Date Type Department Maurice Durbin MD [address] [place] [address] Dyshidrosis (Primary Dx) 12/10/2006 Outpatient [facility] Consol idated [facility] [address] [place] [address] Social History Date Tobacco Use Types Packs/Day Years Used Never Assessed Sex Assigned at Date Recorded Not on file Industry Job Start Date Occupation Not on file Not on file Not on file Travel End Travel History Travel Start No recent travel history available. documented as of this encounter Plan of Treatment Not on filedocumented as of this encounter Visit Diagnoses Diagnosis Dyshidrosis - Primary documented in this encounter
--- OUTSIDE RECORDS SUMMARY | 2019-10-21 18:54 | XMS REPORT | Encounter Summary ---
Author Author [facility] Organization [facility] Address Unknown Phone Unavailable Care Team Providers Care Herb Doctor Name Role Phone Phong Stephens MD PCP Unavailable Robby Rajan APRN Unavailable Phong Stephens MD PCP Unavailable Carlos Middleton PCP Lorraine Hathaway MD PCP [facility]cf, External Provider PCP Unavailable Encounter Details Care Team Description Date Type Department Heydi Harrell MD [address] [place] [phone] Nausea with Vomiting (Primary Dx) 12/29/2006 Emergency [facility] Emergency Department [address] [address] Social History Date Tobacco Use [...]
--- OUTSIDE RECORDS SUMMARY | 2019-10-21 18:54 | XMS REPORT | Encounter Summary ---
Author Author [facility] Organization [facility] Address Unknown Phone Unavailable Care Team Providers Care Title Agent Name Role Phone Phong Stephens MD PCP Unavailable Robby Rajan APRN Unavailable Phong Stephens MD PCP Unavailable Carlos Middleton PCP Lorraine Hathaway MD PCP M[facility]cf, External Provider PCP Unavailable Encounter Details Care Team Description Date Type Department Maurice Durbin MD [address] [place] [address] Pneumonia, Organism Unspecified (Primary Dx) 02/12/2007 Out[facility] [address] [place] [address] Social History Date Tobacco Use Types Packs/Day [...]
--- OUTSIDE RECORDS SUMMARY | 2019-10-21 18:54 | XMS REPORT | Encounter Summary ---
Author Author [facility] Organization [facility] Address Unknown Phone Unavailable Care Team Providers Care Clinical Pharmacy Manager Name Role Phone Phong Stephens MD PCP Unavailable Robby Rajan APRN Unavailable Phong Stephens MD PCP Unavailable Carlos Middleton PCP Lorraine Hathaway MD PCP Mhcf, External Provider PCP Unavailable Encounter Details Care Team Description Date Type Department Maurice Durbin MD [address] [place] [address] Unspecified Asthma, with Exacerbation (P rimary Dx) 12/21/2006 Outpatient [facility] Consol idated Historical [facility] [address] [place] [address] Social History Date Tobacco Use Types Packs/Day Years Used Never Assessed Sex Assigned at Date Recorded Not on file Industry Job Start Date Occupation Not on file Not on file Not on file Travel End Travel History Travel Start No recent travel history available. documented as of this encounter Plan of Treatment Not on filedocumented as of this encounter Visit Diagnoses Diagnosis Unspecified asthma, with exacerbation - Primary documented in this encounter
--- OUTSIDE RECORDS SUMMARY | 2019-10-21 18:54 | XMS REPORT | Encounter Summary ---
Author Author [facility] Organization [facility] Address Unknown Phone Unavailable Care Team Providers Care Salon Designer Name Role Phone Phong Stephens MD PCP Unavailable Robby Rajan APRN Unavailable Phong Stephens MD PCP Unavailable Carlos Middleton PCP Lorraine Hathaway MD PCP [facility]cf, External Provider PCP Unavailable Encounter Details Care Team Description Date Type Department Maurice Durbin MD [address] [place] [phone] Encounter for Long-Term (Current) Use of Anticoagulants (Primary Dx) 01/16/2007 Outpatient [facility] [address] [facility] Historical MEDICAID Social History Date Tobacco Use [...] Priority Date/Time Associated Diag nosis PROTIME-INR Routine 01/16/2007 3:59 PM CDT documented in this encounter Results * PROTIME-INR (01/16/2007 3:59 PM CDT) PROTIME 26.7 (H) 9.6 - 11.0 Sec INTERFACE SYSTEM INR 2.85 2.0 - 3.0 INTERFACE SYSTEM Specimen Performing Organization Address City/State/Zipcode Ph one Number INTERFACE SYSTEM INTERFACE SYSTEM Refer to clinic/hospital department documented in this encounter Visit Diagnoses Diagnosis senior living (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
--- OUTSIDE RECORDS SUMMARY | 2019-10-21 18:54 | XMS REPORT | Encounter Summary ---
Author Author [facility] Organization [facility] Address Unknown Phone Unavailable Care Team Providers Care Transition Coach Name Role Phone PCP Unavailable Encounter Details Care Team Description Date Type Department Conversion, History 01/29/2007 Orders Only HIS CONVERSION Social History Date [...]
--- OUTSIDE RECORDS SUMMARY | 2019-10-21 18:54 | XMS REPORT | Encounter Summary ---
Author Author [facility] Organization [facility] Address Unknown Phone Unavailable Care Team Providers Care Tamping Machine Operator Name Role Phone Phong Stephens MD PCP Unavailable Robby Rajan APRN Unavailable Phong Stephens MD PCP Unavailable Carlos Middleton PCP Lorraine Hathaway MD PCP [facility]cf, External Provider PCP Unavailable Encounter Details Care Team Description Date Type Department Yina, mEy Floyd APRN NO ADDRESS ON FILE Routine Medical Exam (Primary Dx) 02/20/[address] [address] Social History Date Tobacco Use [...]
--- OUTSIDE RECORDS SUMMARY | 2019-10-21 18:54 | XMS REPORT | Encounter Summary ---
Author Author [facility] Organization [facility] Address Unknown Phone Unavailable Care Team Providers Care Oil Furnace Installer Name Role Phone Phong Stephens MD PCP Unavailable Robby Rajan APRN Unavailable Phong Stephens MD PCP Unavailable Carlos Middleton PCP Lorraine Hathaway MD PCP [facility]cf, External Provider PCP Unavailable Encounter Details Care Team Description Date Type Department Reggie Ramirez MD NO ADDRESS ON FILE Acute Laryngitis, without Mention of Obs truction (Primary Dx) 12/13/2006 Outpatient [facility] Consol [address] [address] Social History Date Tobacco Use Types Packs/Day Years Used Never Assessed Sex Assigned at Date Recorded Not on file Industry Job Start Date Occupation Not on file Not on file Not on file Travel End Travel History Travel Start No recent travel history available. documented as of this encounter Plan of Treatment Not on filedocumented as of this encounter Visit Diagnoses Diagnosis Acute laryngitis, without mention of ob struction - Primary documented in this encounter
--- OUTSIDE RECORDS SUMMARY | 2019-10-21 18:55 | XMS REPORT | Encounter Summary ---
Author Author [facility] Organization [facility] Address Unknown Phone Unavailable Care Team Providers Care Director Consumer Name Role Phone Phong Stephens MD PCP Unavailable Robby Rajan APRN Unavailable Phong Stephens MD PCP Unavailable Carlos Middleton PCP Lorraine Hathaway MD PCP [facility]cf, External Provider PCP Unavailable Encounter Details Care Team Description Date Type Department Maurice Durbin MD [address] [place] [phone] Diarrhea (Primary Dx) 10/25/2006 Outpatient [facility] [address] [facility] [...]
--- OUTSIDE RECORDS SUMMARY | 2019-10-21 18:55 | XMS REPORT | Encounter Summary ---
Author Author [facility] Organization [facility] Address Unknown Phone Unavailable Care Team Providers Care Perinatal Technician Name Role Phone Phong Stephens MD PCP Unavailable Robby Rajan APRN Unavailable Phong Stephens MD PCP Unavailable Carlos Middleton PCP Lorraine Hathaway MD PCP Mhcf, External Provider PCP Unavailable Encounter Details Care Team Description Date Type Department Kalyan Cruz ARNP [address] [place] [address] Nausea Alone (Primary Dx) 07/29/2006 Emergency [facility] Emergency Department [address] [address] Social History Date Tobacco Use [...]
--- OUTSIDE RECORDS SUMMARY | 2019-10-21 18:55 | XMS REPORT | Encounter Summary ---
Author Author [facility] Organization [facility] Address Unknown Phone Unavailable Care Team Providers Care Channel Turner Name Role Phone Phong Stephens MD PCP Unavailable Robby Rajan APRN Unavailable Phong Stephens MD PCP Unavailable Carlos Middleton PCP Lorraine Hathaway MD PCP M[facility]cf, External Provider PCP Unavailable Encounter Details Care Team Description Date Type Department Jr Yemi Nunn, [address] [place] [phone] Dizziness and Giddiness (Primary Dx) 08/25/2006 Emergency [facility] Emergency Department [address] [address] Social History Date Tobacco Use [...] as of this encounter Visit Diagnoses Diagnosis Dizziness and giddiness - Primary documented in this encounter
--- OUTSIDE RECORDS SUMMARY | 2019-10-21 18:55 | XMS REPORT | Encounter Summary ---
Author Author [facility] Organization [facility] Address Unknown Phone Unavailable Care Team Providers Care Furniture Inspector Name Role Phone Phong Stephens MD PCP Unavailable Robby Rajan APRN Unavailable Phong Stephens MD PCP Unavailable Carlos Middleton PCP Lorraine Hathaway MD PCP M[facility]cf, External Provider PCP Unavailable Encounter Details Care Team Description Date Type Department Maurice Durbin MD [address] [place] [phone] Unspecified Pruritic Disorder (Primary D x) 09/05/2006 Outpatient [facility] [address] [facility] [...] of this encounter Visit Diagnoses Diagnosis Unspecified pruritic disorder - Primary documented in this encounter
--- OUTSIDE RECORDS SUMMARY | 2019-10-21 18:55 | XMS REPORT | Encounter Summary ---
Author Author [facility] Organization [facility] Address Unknown Phone Unavailable Care Team Providers Care Program Scheduler Name Role Phone Phong Stephens MD PCP Unavailable Robby Rajan APRN Unavailable Phong Stephens MD PCP Unavailable Carlos Middleton PCP Lorraine Hathaway MD PCP Mhcf, External Provider PCP Unavailable Encounter Details Care Team Description Date Type Department Maurice Durbin MD [address] [place] [address] Unspecified Backache (Primary Dx) 09/03/2006 Outpatient [facility] Consol idated Historical [facility] [address] [place] [address] Social History Date Tobacco Use Types Packs/Day [...]
--- OUTSIDE RECORDS SUMMARY | 2019-10-21 18:55 | XMS REPORT | Encounter Summary ---
Author Author [facility] Organization [facility] Address Unknown Phone Unavailable Care Team Providers Care Attendant Arcade Name Role Phone Phong Stephens MD PCP Unavailable Robby Rajan APRN Unavailable Phong Stephens MD PCP Unavailable Carlos Middleton PCP Lorraine Hathaway MD PCP M[facility]cf, External Provider PCP Unavailable Encounter Details Care Team Description Date Type Department Maurice Durbin MD [address] [place] [address] Edema (Primary Dx) 08/07/[address] [facility] Consol idated Historical [facility] [address] [place] [address] Social History Date Tobacco Use Types Packs/Day [...]
--- OUTSIDE RECORDS SUMMARY | 2019-10-21 18:55 | XMS REPORT | Encounter Summary ---
Author Author [facility] Organization [facility] Address Unknown Phone Unavailable Care Team Providers Care General Contractor Name Role Phone Phong Stephens MD PCP Unavailable Robby Rajan APRN Unavailable Phong Stephens MD PCP Unavailable Carlos Middleton PCP Lorraine Hathaway MD PCP M[facility]cf, External Provider PCP Unavailable Encounter Details Care Team Description Date Type Department Maurice Durbin MD [address] [place] [address] Abn Liver Function Study (Primary Dx) 10/25/2006 Outpatient [facility] Consol idated Historical [facility] [address] [place] [address] Social History Date Tobacco Use Types Packs/Day Years Used Never Assessed Sex Assigned at Date Recorded Not on file Industry Job Start Date Occupation Not on file Not on file Not on file Travel End Travel History Travel Start No recent travel history available. documented as of this encounter Plan of Treatment Not on filedocumented as of this encounter Visit Diagnoses Diagnosis Abn liver function study - Primary Nonspecific abnormal results of liver f unction study documented in this encounter
--- OUTSIDE RECORDS SUMMARY | 2019-10-21 18:55 | XMS REPORT | Encounter Summary ---
Author Author [facility] Organization [facility] Address Unknown Phone Unavailable Care Team Providers Care Chicken Vaccinator Name Role Phone Phong Stephens MD PCP Unavailable Robby Rajan APRN Unavailable Phong Stephens MD PCP Unavailable Carlos Middleton PCP Lorraine Hathaway MD PCP [facility], External Provider PCP Unavailable Encounter Details Care Team Description Date Type Department Maurice Durbin MD [address] [place] [address] Unspecified Backache (Primary Dx) 08/21/2006 Outpatient [facility] Consol idated Historical [facility] [address] [place] [address] Social History Date Tobacco Use Types Packs/Day [...]
--- OUTSIDE RECORDS SUMMARY | 2019-10-21 18:55 | XMS REPORT | Encounter Summary ---
Author Author [facility] Organization [facility] Address Unknown Phone Unavailable Care Team Providers Care Director Skills Name Role Phone Phong Stephens MD PCP Unavailable Robby Rajan APRN Unavailable Phong Stephens MD PCP Unavailable Carlos Middleton PCP Lorraine Hathaway MD PCP [facility], External Provider PCP Unavailable Encounter Details Care Team Description Date Type Department Maurice Durbin MD [address] [place] [address] Edema (Primary Dx) 08/06/[address] [facility] Consol idated Historical [facility] [address] [place] [address] Social History Date Tobacco Use Types Packs/Day [...]
--- OUTSIDE RECORDS SUMMARY | 2019-10-21 18:55 | XMS REPORT | Encounter Summary ---
Author Author [facility] Organization [facility] Address Unknown Phone Unavailable Care Team Providers Care Skein Yarn Dyer Name Role Phone Phong Stephens MD PCP Unavailable Robby Rajan APRN Unavailable Phong Stephens MD PCP Unavailable Carlos Middleton PCP Lorraine Hathaway MD PCP [facility], External Provider PCP Unavailable Encounter Details Care Team Description Date Type Department Maurice Durbin MD [address] [place] [address] DM Neuro Manif Type II (Primary Dx) 09/21/2006 Outpatient [facility] Consol idated [facility] [address] [place] [address] Social History Date Tobacco Use Types Packs/Day [...] llitus with neurological manifestations, not stated as uncontrolled(250.60) - Primary 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
--- OUTSIDE RECORDS SUMMARY | 2019-10-21 18:55 | XMS REPORT | Encounter Summary ---
Author Author [facility] Organization [facility] Address Unknown Phone Unavailable Care Team Providers Care Healthcare Economics Consultant Name Role Phone Phong Stephens MD PCP Unavailable Robby Rajan APRN Unavailable Phong Stephens MD PCP Unavailable Carlos Middleton PCP Lorraine Hathaway MD PCP [facility], External Provider PCP Unavailable Encounter Details Care Team Description Date Type Department Maurice Durbin MD [address] [place] [address] No Proc for Reasons NEC (Primary Dx) 08/31/2006 Outpatient [facility] Historical [address] [address] Social History Date Tobacco Use [...] as of this encounter Visit Diagnoses Diagnosis No proc for reasons NEC - Primary Procedure not carried out for other frida sons documented in this encounter
--- OUTSIDE RECORDS SUMMARY | 2019-10-21 18:55 | XMS REPORT | Encounter Summary ---
Author Author [facility] Organization [facility] Address Unknown Phone Unavailable Care Team Providers Care Toolmaker Helper Name Role Phone Phong tSephens MD PCP Unavailable Robby Rajan APRN Unavailable Phong Stephens MD PCP Unavailable Carlos Middleton PCP Lorraine Hathaway MD PCP [facility], External Provider PCP Unavailable Encounter Details Care Team Description Date Type Department Maurice Durbin MD [address] [place] [address] Unspecified Migraine without Mention of Intractable Migraine (Primary Dx) 07/23/2006 Emergency [facility] Emergency Department [address] [address] Social History Date Tobacco Use [...]
--- OUTSIDE RECORDS SUMMARY | 2019-10-21 18:55 | XMS REPORT | Encounter Summary ---
Author Author [facility] Organization [facility] Address Unknown Phone Unavailable Care Team Providers Care Pharmacy Technologist Name Role Phone Phong Stephens MD PCP Unavailable Robby Rajan APRN Unavailable Phong Stephens MD PCP Unavailable Carlos Middleton PCP Lorraine Hathaway MD PCP [facility]cf, External Provider PCP Unavailable Encounter Details Care Team Description Date Type Department Lavell Lance MD Nausea Alone (Primary Dx) 07/30/2006 Emergency [facility] Emergency Department [address] [address] Social History Date Tobacco Use [...]
--- OUTSIDE RECORDS SUMMARY | 2019-10-21 18:55 | XMS REPORT | Encounter Summary ---
Author Author [facility] Organization [facility] Address Unknown Phone Unavailable Care Team Providers Care Auto Body Repair Teacher Name Role Phone Phong Stephens MD PCP Unavailable Robby Rajan APRN Unavailable Phong Stephens MD PCP Unavailable Carlos Middleton PCP Lorraine Hathaway MD PCP [facility]cf, External Provider PCP Unavailable Encounter Details Care Team Description Date Type Department Kalyan Cruz ARNP [address] [place] [address] Nausea Alone (Primary Dx) 08/26/2006 Emergency [facility] Emergency Department [address] [address] Social History Date Tobacco Use [...]
--- OUTSIDE RECORDS SUMMARY | 2019-10-21 18:55 | XMS REPORT | Encounter Summary ---
Author Author [facility] Organization [facility] Address Unknown Phone Unavailable Care Team Providers Care Soft Sugar Supervisor Name Role Phone Phong Stephens MD PCP Unavailable Robby Rajan APRN Unavailable Phong Stephens MD PCP Unavailable Carlos Middleton PCP Lorraine Hathaway MD PCP [facility], External Provider PCP Unavailable Encounter Details Care Team Description Date Type Department Maurice Durbin MD [address] [place] [address] Unspecified Migraine without Mention of Intractable Migraine (Primary Dx) 07/24/2006 Outpatient [facility] Consol idated Historical [facility] [address] [place] [address] Social History Date Tobacco Use Types Packs/Day [...]
--- OUTSIDE RECORDS SUMMARY | 2019-10-21 18:55 | XMS REPORT | Encounter Summary ---
Author Author [facility] Organization [facility] Address Unknown Phone Unavailable Care Team Providers Care Glass Setter Name Role Phone Phong Stephens MD PCP Unavailable Robby Rajan APRN Unavailable Phong Stephens MD PCP Unavailable Carlos Middleton PCP Lorraine Hathaway MD PCP M[facility]cf, External Provider PCP Unavailable Encounter Details Care Team Description Date Type Department Maurice Durbin MD [address] [place] [phone] Embolism and Thrombosis of Other Specifi ed Veins (Primary Dx) 10/01/2006 Outpatient [facility] [address] [facility] [...] of this encounter Visit Diagnoses Diagnosis Other acute embolism veins - Primary Acute venous embolism and thrombosis of other specified veins documented in this encounter
--- OUTSIDE RECORDS SUMMARY | 2019-10-21 18:55 | XMS REPORT | Encounter Summary ---
Author Author [facility] Organization [facility] Address Unknown Phone Unavailable Care Team Providers Care Information Resource Consultant Name Role Phone Phong Stephens MD PCP Unavailable Robby Rajan APRN Unavailable Phong Stephens MD PCP Unavailable Carlos Middleton PCP Lorraine Hathaway MD PCP M[facility]cf, External Provider PCP Unavailable Encounter Details Care Team Description Date Type Department Maurice Durbin MD [address] [place] [phone] Unspecified Backache (Primary Dx) 09/03/2006 Outpatient [facility] [address] [facility] [...]
--- OUTSIDE RECORDS SUMMARY | 2019-10-21 18:55 | XMS REPORT | Encounter Summary ---
Author Author [facility] Organization [facility] Address Unknown Phone Unavailable Care Team Providers Care Stain Applicator Name Role Phone Phong Stephens MD PCP Unavailable Robby Rajan APRN Unavailable Phong Stephens MD PCP Unavailable Carlos Middleton PCP Lorraine Hathaway MD PCP M[facility]cf, External Provider PCP Unavailable Encounter Details Care Team Description Date Type Department Maurice Durbin MD [address] [place] [phone] Encounter for Long-Term (Current) Use of Anticoagulants (Primary Dx) 09/17/2006 Outpatient [facility] [address] [facility] Historical MEDICAID Social History Date Tobacco Use [...] as of this encounter Visit Diagnoses Diagnosis termite helper (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
--- OUTSIDE RECORDS SUMMARY | 2019-10-21 18:55 | XMS REPORT | Encounter Summary ---
Author Author [facility] Organization [facility] Address Unknown Phone Unavailable Care Team Providers Care Quality Assurance Assistant Name Role Phone Phong Stephens MD PCP Unavailable Robby Rajan APRN Unavailable Phong Stephens MD PCP Unavailable Carlos Middleton PCP Lorraine Hathaway MD PCP M[facility]cf, External Provider PCP Unavailable Encounter Details Care Team Description Date Type Department Maurice Durbin MD [address] [place] [address] Drug-Induced Delirium (Primary Dx) 08/07/2006 Inpatient [facility] [place] [address] [place] [address] Social History Date Tobacco [...] as of this encounter Visit Diagnoses Diagnosis Drug-induced delirium(292.81) - Primary Drug-induced delirium documented in this encounter
--- OUTSIDE RECORDS SUMMARY | 2019-10-21 18:55 | XMS REPORT | Encounter Summary ---
Author Author [facility] Organization [facility] Address Unknown Phone Unavailable Care Team Providers Care Motor Equipment Sergeant Name Role Phone Phong Stephens MD PCP Unavailable Robby Rajan APRN Unavailable Phong Stephens MD PCP Unavailable Carlos Middleton PCP Lorraine Hathaway MD PCP [facility]cf, External Provider PCP Unavailable Encounter Details Care Team Description Date Type Department Maurice Durbin MD [address] [place] [address] Mononeuritis of Unspecified Site (Primar y Dx) 11/21/2006 Outpatient [facility] Consol idated Historical [facility] [address] [place] [address] Social History Date Tobacco Use Types Packs/Day [...]
--- OUTSIDE RECORDS SUMMARY | 2019-10-21 18:55 | XMS REPORT | Encounter Summary ---
Author Author [facility] Organization [facility] Address Unknown Phone Unavailable Care Team Providers Care Yam Curer Name Role Phone Phong Stephens MD PCP Unavailable Robby Rajan APRN Unavailable Phong Stephens MD PCP Unavailable Carlos Middleton PCP Lorraine Hathaway MD PCP M[facility]cf, External Provider PCP Unavailable Encounter Details Care Team Description Date Type Department Jr Yemi Nunn DO [address] [place] [phone] Other Chronic Pain (Primary Dx) 07/17/2006 Emergency [facility] Emergency Department [address] [address] Social History Date Tobacco [...]
--- OUTSIDE RECORDS SUMMARY | 2019-10-21 18:55 | XMS REPORT | Encounter Summary ---
Author Author [facility] Organization [facility] Address Unknown Phone Unavailable Care Team Providers Care Overlocker Name Role Phone Phong Stephens MD PCP Unavailable Robby Rajan APRN Unavailable Phong Stephens MD PCP Unavailable Carlos Middleton PCP Lorraine Hathaway MD PCP M[facility]cf, External Provider PCP Unavailable Encounter Details Care Team Description Date Type Department Maurice Durbin MD [address] [place] [address] Unspecified Backache (Primary Dx) 09/17/2006 Outpatient [facility] Consol idated Historical [facility] [address] [place] [address] Social History Date Tobacco Use Types Packs/Day [...]
--- OUTSIDE RECORDS SUMMARY | 2019-10-21 18:55 | XMS REPORT | Encounter Summary ---
Author Author [facility] Organization [facility] Address Unknown Phone Unavailable Care Team Providers Care Tug Boat Captain Name Role Phone Phong Stephens MD PCP Unavailable Robby Rajan APRN Unavailable Phong Stephens MD PCP Unavailable Carlos Middleton PCP Lorraine Hathaway MD PCP Mhcf, External Provider PCP Unavailable Encounter Details Care Team Description Date Type Department Kalyan Cruz ARNP [address] [place] [address] Sprain Lumbar Region (Primary Dx) 08/01/2006 Emergency [facility] Emergency Department [address] [address] Social History Date Tobacco Use [...] as of this encounter Visit Diagnoses Diagnosis Sprain lumbar region - Primary Sprain of lumbar region documented in this encounter
--- OUTSIDE RECORDS SUMMARY | 2019-10-21 18:55 | XMS REPORT | Encounter Summary ---
Author Author [facility] Organization [facility] Address Unknown Phone Unavailable Care Team Providers Care Finish Repairer Name Role Phone Phong Stephens MD PCP Unavailable Robby Rajan APRN Unavailable Phong Stephens MD PCP Unavailable Carlos Middleton PCP Lorraine Hathaway MD PCP [facility]cf, External Provider PCP Unavailable Encounter Details Care Team Description Date Type Department Maurice Durbin MD [address] [place] [address] Pure Hypercholesterolem (Primary Dx) 08/13/2006 Outpatient [facility] Consol idated Historical [facility] [address] [place] [address] Social History Date Tobacco Use Types Packs/Day Years Used Never Assessed Sex Assigned at Date Recorded Not on file Industry Job Start Date Occupation Not on file Not on file Not on file Travel End Travel History Travel Start No recent travel history available. documented as of this encounter Plan of Treatment Not on filedocumented as of this encounter Visit Diagnoses Diagnosis Pure hypercholesterolem - Primary Pure hypercholesterolemia documented in this encounter
--- OUTSIDE RECORDS SUMMARY | 2019-10-21 18:55 | XMS REPORT | Encounter Summary ---
Author Author [facility] Organization [facility] Address Unknown Phone Unavailable Care Team Providers Care Real Time Analyst Name Role Phone Phong Stephens MD PCP Unavailable Robby Rajan APRN Unavailable Phong Stephens MD PCP Unavailable Carlos Middleton PCP Lorraine Hathaway MD PCP [facility]cf, External Provider PCP Unavailable Encounter Details Care Team Description Date Type Department Maurice Durbin MD [address] [place] [address] Candidal Vulvovaginitis (Primary Dx) 10/15/2006 Outpatient [facility] Consol idated Historical [facility] [address] [place] [address] Social History Date Tobacco Use Types Packs/Day Years Used Never Assessed Sex Assigned at Date Recorded Not on file Industry Job Start Date Occupation Not on file Not on file Not on file Travel End Travel History Travel Start No recent travel history available. documented as of this encounter Plan of Treatment Not on filedocumented as of this encounter Visit Diagnoses Diagnosis Candidal vulvovaginitis - Primary Candidiasis of vulva and vagina documented in this encounter
--- OUTSIDE RECORDS SUMMARY | 2019-10-21 18:55 | XMS REPORT | Encounter Summary ---
Author Author [facility] Organization [facility] Address Unknown Phone Unavailable Care Team Providers Care Christmas Tree Farm Manager Name Role Phone Phong Stephens MD PCP Unavailable Robby Rajan APRN Unavailable Phong Stephens MD PCP Unavailable Carlos Middleton PCP Lorraine Hathaway MD PCP [facility]cf, External Provider PCP Unavailable Encounter Details Care Team Description Date Type Department Maurice Durbin MD [address] [place] [address] Abdominal Pain, Unspecified Site (Primar y Dx) 09/05/[address] [facility] Consol idated Historical [facility] [address] [place] [address] Social History Date Tobacco Use Types Packs/Day [...]
--- OUTSIDE RECORDS SUMMARY | 2019-10-21 18:55 | XMS REPORT | Encounter Summary ---
Author Author [facility] Organization [facility] Address Unknown Phone Unavailable Care Team Providers Care Lighthouse Keeper Name Role Phone Phong Stephens MD PCP Unavailable Robby Rajan APRN Unavailable Phong Stephens MD PCP Unavailable Carlos Middleton PCP Lorraine Hathaway MD PCP M[facility]cf, External Provider PCP Unavailable Encounter Details Care Team Description Date Type Department Maurice Durbin MD [address] [place] [address] Embolism and Thrombosis of Other Specifi ed Veins (Primary Dx) 10/01/2006 Outpatient [facility] Consol idated Historical [facility] [address] [place] [address] Social History Date Tobacco Use Types Packs/Day [...]
--- OUTSIDE RECORDS SUMMARY | 2019-10-21 18:55 | XMS REPORT | Encounter Summary ---
Author Author [facility] Organization [facility] Address Unknown Phone Unavailable Care Team Providers Care Custom Applicator Name Role Phone Phong Stephens MD PCP Unavailable Robby Rajan APRN Unavailable Phong Stephens MD PCP Unavailable Carlos Middleton PCP Lorraine Hathaway MD PCP [facility]cf, External Provider PCP Unavailable Encounter Details Care Team Description Date Type Department Deidra Pappas MD NO ADDRESS ON FILE Nausea with Vomiting (Primary Dx) 07/22/2006 Emergency [facility] Emergency Department [address] [address] Social History Date Tobacco Use [...]
--- OUTSIDE RECORDS SUMMARY | 2019-10-21 18:55 | XMS REPORT | Encounter Summary ---
Author Author [facility] Organization [facility] Address Unknown Phone Unavailable Care Team Providers Care Dog Food Shredder Operator Name Role Phone Phong Stephens MD PCP Unavailable Robby Rajan APRN Unavailable Phong Stephens MD PCP Unavailable Carlos Middleton PCP Lorraine Hathaway MD PCP M[facility]cf, External Provider PCP Unavailable Encounter Details Care Team Description Date Type Department Jr Yemi Nunn, [address] [place] [phone] Pain in Limb (Primary Dx) 08/05/2006 Emergency [facility] Emergency Department [address] [address] Social History Date Tobacco [...]
--- OUTSIDE RECORDS SUMMARY | 2019-10-21 18:56 | XMS REPORT | Encounter Summary ---
Author Author [facility] Organization [facility] Address Unknown Phone Unavailable Care Team Providers Care Sales Assistant Displays Name Role Phone Phong Stephens MD PCP Unavailable Robby Rajan APRN Unavailable Phong Stephens MD PCP Unavailable Carlos Middleton PCP Lorraine Hathaway MD PCP Mhcf, External Provider PCP Unavailable Encounter Details Care Team Description Date Type Department Lavell Lance MD Vomiting Alone (Primary Dx) 07/12/2006 Emergency [facility] Emergency Department [address] [address] Social History Date Tobacco Use [...]
--- OUTSIDE RECORDS SUMMARY | 2019-10-21 18:56 | XMS REPORT | Encounter Summary ---
Author Author [facility] Organization [facility] Address Unknown Phone Unavailable Care Team Providers Care Dance Coach Name Role Phone Phong Stephens MD PCP Unavailable Robby Rajan APRN Unavailable Phong Stephens MD PCP Unavailable Carlos Middleton PCP Lorraine Hathaway MD PCP Mhcf, External Provider PCP Unavailable Encounter Details Care Team Description Date Type Department Maurice Durbin MD [address] [place] [address] Pneumonia due to Streptococcus, Group B (Primary Dx) 06/12/2006 Inpatient [facility] [place] [address] [place] [address] Social History Date Tobacco Use [...] as of this encounter Visit Diagnoses Diagnosis Pneumonia due to Streptococcus, group b - Primary Pneumonia due to Streptococcus, group B documented in this encounter
--- OUTSIDE RECORDS SUMMARY | 2019-10-21 18:56 | XMS REPORT | Encounter Summary ---
Author Author [facility] Organization [facility] Address Unknown Phone Unavailable Care Team Providers Care Systems Integration Engineer Name Role Phone Phong Stephens MD PCP Unavailable Robby Rajan APRN Unavailable Phong Stephens MD PCP Unavailable Carlos Middleton PCP Lorraine Hathaway MD PCP Mhcf, External Provider PCP Unavailable Encounter Details Care Team Description Date Type Department Maurice Durbin MD [address] [place] [address] Unspecified Backache (Primary Dx) 06/08/[address] [facility] Consol idated Historical [facility] [address] [place] [address] Social History Date Tobacco Use Types Packs/Day [...]
--- OUTSIDE RECORDS SUMMARY | 2019-10-21 18:56 | XMS REPORT | Encounter Summary ---
Author Author [facility] Organization [facility] Address Unknown Phone Unavailable Care Team Providers Care Skip Locator Name Role Phone Phong Stephens MD PCP Unavailable Robby Rajan APRN Unavailable Phong Stephens MD PCP Unavailable Carlos Middleton PCP Lorraine Hathaway MD PCP M[facility]cf, External Provider PCP Unavailable Encounter Details Care Team Description Date Type Department Maurice Durbin MD [address] [place] [address] DM w/o Complication Type II (Primary Dx) 05/31/2006 Outpatient [facility] Consol idated Historical [facility] [address] [place] [address] Social History Date Tobacco Use Types Packs/Day [...]
--- OUTSIDE RECORDS SUMMARY | 2019-10-21 18:56 | XMS REPORT | Encounter Summary ---
Author Author [facility] Organization [facility] Address Unknown Phone Unavailable Care Team Providers Care Package Dye Stand Loader Name Role Phone Phong Stephens MD PCP Unavailable Robby Rajan APRN Unavailable Phong Stephens MD PCP Unavailable Carlos Middleton PCP Lorraine Hathaway MD PCP [facility]cf, External Provider PCP Unavailable Encounter Details Care Team Description Date Type Department Lavell Lance MD Nausea with Vomiting (Primary Dx) 06/12/2006 Emergency [facility] Emergency Department [address] [address] Social History Date Tobacco Use [...]
--- OUTSIDE RECORDS SUMMARY | 2019-10-21 18:56 | XMS REPORT | Encounter Summary ---
Author Author [facility] Organization [facility] Address Unknown Phone Unavailable Care Team Providers Care Control System Computer Scientist Name Role Phone Phong Stephens MD PCP Unavailable Robby Rajan APRN Unavailable Phong Stephens MD PCP Unavailable Carlos Middleton PCP Lorraine Hathaway MD PCP M[facility]cf, External Provider PCP Unavailable Encounter Details Care Team Description Date Type Department Maurice Durbin MD [address] [place] [address] Encounter for Long-Term (Current) Use of Anticoagulants (Primary Dx) 03/15/2006 Outpatient [facility] Consol idated Historical [facility] [address] [place] [address] Social History Date Tobacco Use Types Packs/Day Years Used Never Assessed Sex Assigned at Date Recorded Not on file Industry Job Start Date Occupation Not on file Not on file Not on file Travel End Travel History Travel Start No recent travel history available. documented as of this encounter Plan of Treatment Not on filedocumented as of this encounter Visit Diagnoses Diagnosis longterm (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
--- OUTSIDE RECORDS SUMMARY | 2019-10-21 18:56 | XMS REPORT | Encounter Summary ---
Author Author [facility] Organization [facility] Address Unknown Phone Unavailable Care Team Providers Care Cream Hauler Name Role Phone Phong Stephens MD PCP Unavailable Robby Rajan APRN Unavailable Phong Stephens MD PCP Unavailable Carlos Middleton PCP Lorraine Hathaway MD PCP [facility], External Provider PCP Unavailable Encounter Details Care Team Description Date Type Department Maurice Durbin MD [address] [place] [phone] Encounter for Long-Term (Current) Use of Anticoagulants (Primary Dx) 06/22/2006 Outpatient [facility] [address] [facility] Historical MEDICAID Social History Date [...] as of this encounter Visit Diagnoses Diagnosis surgery scheduler (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
--- OUTSIDE RECORDS SUMMARY | 2019-10-21 18:56 | XMS REPORT | Encounter Summary ---
Author Author [facility] Organization [facility] Address Unknown Phone Unavailable Care Team Providers Care Java Programming Professor Name Role Phone Phong Stephens MD PCP Unavailable Robby Rajan APRN Unavailable Phong Stephens MD PCP Unavailable Carlos Middleton PCP Lorraine Hathaway MD PCP [facility], External Provider PCP Unavailable Encounter Details Care Team Description Date Type Department Kalyan Cruz ARNP [address] [place] [address] Unspecified Schizophrenia, Unspecified C ondition (Primary Dx) 06/02/2006 Emergency [facility] Emergency Department [address] [address] Social History Date Tobacco Use [...] of this encounter Visit Diagnoses Diagnosis Unspecified schizophrenia, unspecified condition - Primary documented in this encounter
--- OUTSIDE RECORDS SUMMARY | 2019-10-21 18:56 | XMS REPORT | Encounter Summary ---
Author Author [facility] Organization [facility] Address Unknown Phone Unavailable Care Team Providers Care Price Accuracy Supervisor Name Role Phone Phong Stephens MD PCP Unavailable Robby Rajan APRN Unavailable Phong Stephens MD PCP Unavailable Carlos Middleton PCP Lorraine Hathaway MD PCP [facility]cf, External Provider PCP Unavailable Encounter Details Care Team Description Date Type Department Maurice Durbin MD [address] [place] [address] Unspecified Asthma, with Exacerbation (P rimary Dx) 05/15/2006 Outpatient [facility] Consol idated Historical [facility] [address] [place] [address] Social History Date Tobacco Use Types Packs/Day [...]
--- OUTSIDE RECORDS SUMMARY | 2019-10-21 18:56 | XMS REPORT | Encounter Summary ---
Author Author [facility] Organization [facility] Address Unknown Phone Unavailable Care Team Providers Care Sanitation Worker Name Role Phone Phong Stephens MD PCP Unavailable Robby Rajan APRN Unavailable Phong Stephens MD PCP Unavailable Carlos Middleton PCP Lorraine Hathaway MD PCP [facility], External Provider PCP Unavailable Encounter Details Care Team Description Date Type Department Jr Yemi Nunn DO [id number] [place] [id number] Nausea Alone (Primary Dx) 03/17/2006 Emergency [facility] Emergency Department [address] [address] Social History Date Tobacco Use [...]
--- OUTSIDE RECORDS SUMMARY | 2019-10-21 18:56 | XMS REPORT | Encounter Summary ---
Author Author [facility] Organization [facility] Address Unknown Phone Unavailable Care Team Providers Care General Warehouse Worker Name Role Phone Phong Stephens MD PCP Unavailable Robby Rajan APRN Unavailable Phong Stephens MD PCP Unavailable Carlos Middleton PCP Lorraine Hathaway MD PCP [facility]cf, External Provider PCP Unavailable Encounter Details Care Team Description Date Type Department Kalyan Cruz ARNP [address] [place] [address] Unspecified Migraine without Mention of Intractable Migraine (Primary Dx) 05/22/2006 Emergency [facility] Emergency Department [address] [phone] Social History Date Tobacco [...]
--- OUTSIDE RECORDS SUMMARY | 2019-10-21 18:56 | XMS REPORT | Encounter Summary ---
Author Author [facility] Organization [facility] Address Unknown Phone Unavailable Care Team Providers Care Rate Quoting Operator Name Role Phone hPong Stephens MD PCP Unavailable Robby Rajan APRN Unavailable Phong Stephens MD PCP Unavailable Carlos Middleton PCP Lorraine Hathaway MD PCP [facility]cf, External Provider PCP Unavailable Encounter Details Care Team Description Date Type Department Maurice Durbin MD [address] [place] [address] Shortness of Breath (Primary Dx) 06/12/2006 Outpatient [facility] Consol idated Historical [facility] [address] [place] [address] Social History Date Tobacco Use Types Packs/Day [...]
--- OUTSIDE RECORDS SUMMARY | 2019-10-21 18:56 | XMS REPORT | Encounter Summary ---
Author Author [facility] Organization [facility] Address Unknown Phone Unavailable Care Team Providers Care Valve Inserter Name Role Phone Phong Stephens MD PCP Unavailable Robby Rajan APRN Unavailable Phong Stephens MD PCP Unavailable Carlos Middleton PCP Lorraine Hathaway MD PCP [facility]cf, External Provider PCP Unavailable Encounter Details Care Team Description Date Type Department Lavell Lance MD Unspecified Migraine without Mention of Intractable Migraine (Primary Dx) 05/24/[address] [facility] Emergency Department [address] [phone] Social History Date Tobacco Use [...]
--- OUTSIDE RECORDS SUMMARY | 2019-10-21 18:56 | XMS REPORT | Encounter Summary ---
Author Author [facility] Organization [facility] Address Unknown Phone Unavailable Care Team Providers Care Chips Screen Tender Name Role Phone Phong Stephens MD PCP Unavailable Robby Rajan APRN Unavailable Phong Stephens MD PCP Unavailable Carlos Middleton PCP Lorraine Hathaway MD PCP [facility], External Provider PCP Unavailable Encounter Details Care Team Description Date Type Department Lavell Lance MD Unspecified Migraine without Mention of Intractable Migraine (Primary Dx) 05/10/2006 Emergency [facility] Emergency Department [address] [address] Social History Date Tobacco Use [...]
--- OUTSIDE RECORDS SUMMARY | 2019-10-21 18:56 | XMS REPORT | Encounter Summary ---
Author Author [facility] Organization [facility] Address Unknown Phone Unavailable Care Team Providers Care Measurement Department Chief Clerk Name Role Phone Phong Stephens MD PCP Unavailable Robby Rajan APRN Unavailable Phong Stephens MD PCP Unavailable Carlos Middleton PCP Lorraine Hathaway MD PCP [facility], External Provider PCP Unavailable Encounter Details Care Team Description Date Type Department Maurice Durbin MD [address] [place] [address] Encounter for Long-Term (Current) Use of Anticoagulants (Primary Dx) 07/17/2006 Outpatient [facility] Consol idated Historical [facility] [address] [place] [address] Social History Date Tobacco Use Types Packs/Day Years Used Never Assessed Sex Assigned at Date Recorded Not on file Industry Job Start Date Occupation Not on file Not on file Not on file Travel End Travel History Travel Start No recent travel history available. documented as of this encounter Plan of Treatment Not on filedocumented as of this encounter Visit Diagnoses Diagnosis FPC (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
--- OUTSIDE RECORDS SUMMARY | 2019-10-21 18:56 | XMS REPORT | Encounter Summary ---
Author Author [facility] Organization [facility] Address Unknown Phone Unavailable Care Team Providers Care Ethnographic Materials Conservator Name Role Phone Phong Stephens MD PCP Unavailable Robby Rajan APRN Unavailable Phong Stephens MD PCP Unavailable Carlos Middleton PCP Lorraine Hathaway MD PCP [facility], External Provider PCP Unavailable Encounter Details Care Team Description Date Type Department Maurice Durbin MD [address] [place] [phone] Encounter for Long-Term (Current) Use of Anticoagulants (Primary Dx) 03/15/2006 Outpatient [facility] [address] [facility] [...] Priority Date/Time Associated Diag nosis PROTIME-INR Routine 03/15/2006 9:15 AM CDT HEMOGLOBIN A1C Routine 03/15/2006 9:15 AM CDT LIPID PANEL Routine 03/15/2006 9:15 AM CDT COMPREHENSIVE METABOLIC Routine 03/15/2006 PANEL 9:15 AM CDT documented in this encounter Results * HEMOGLOBIN A1C (03/15/2006 9:15 AM CDT) HEMOGLOBIN A1C 5.5 0 - 6.0 % INTERFACE SYSTEM GLUCOSE, MEAN 108 mg/dl INTERFACE BLOOD SYSTEM Specimen Narrative Performed At FASTING INTERFACE SYSTEM Performing Organization Address [facility] one Number INTERFACE SYSTEM INTERFACE SYSTEM Refer to clinic/hospital department * PROTIME-INR (03/15/2006 9:15 AM CDT) PROTIME 12.7 (H) 9.0 - 11.0 Sec INTERFACE SYSTEM INR 1.27 (L) 2.0 - 3.0 INTERFACE SYSTEM Specimen Narrative Performed At FASTING INTERFACE SYSTEM Performing Organization Address [facility] Ph one Number INTERFACE SYSTEM INTERFACE SYSTEM Refer to clinic/hospital department * LIPID PANEL (03/15/2006 9:15 AM CDT) CHOLESTEROL 192 140 - 200 mg/dl INTERFACE SYSTEM TRIGLYCERIDE 347 (H) 0 - 199 mg/dl INTERFACE Comment: SYSTEM REFERENCE RANGE - TRIGLYCERIDES NORMAL LESS THAN 150 mg/dl BORDERLINE HIGH 150 - 199 mg/dl HIGH 200 - 499 mg/dl VERY HIGH GREATER THAN OR = 500 mg/dl HDL 36 29 - 89 mg/dl INTERFACE SYSTEM LDL 108 <130 mg/dl INTERFACE CHOLESTEROL, Comment: SYSTEM DIRECT --- RISK CATEGORY LDL GOAL High risk: <100 mg/dl CHD or CHD risk equivalents (optional goal: <70 mg/dl) (10-year risk > 20%) Moderately high risk <130 mg/dl 2+ risk factors (10-year risk 10% to 20%) Moderate risk: <130 mg/dl 2+ risk factors (10-year risk < 10%) Lower risk: <160 mg/dl 0-1 risk factor Specimen Narrative Performed At FASTING INTERFACE SYSTEM Performing Organization Address [facility] one Number INTERFACE SYSTEM INTERFACE SYSTEM Refer to clinic/hospital department * COMPREHENSIVE METABOLIC PANEL (03/15/2006 9:15 AM CDT) GLUCOSE 81 70 - 110 mg/dl INTERFACE SYSTEM BUN 14.0 7 - 20 mg/dl INTERFACE SYSTEM CREATININE 0.7 0.6 - 1.0 mg/dl INTERFACE SYSTEM BUN/CREAT RATIO 20.0 10 - 20 INTERFACE SYSTEM GFR 102 >90 ml/min INTERFACE SYSTEM SODIUM 137 135 - 145 mmol/L INTERFACE SYSTEM POTASSIUM 4.2 3.3 - 4.8 mmol/L INTERFACE SYSTEM CHLORIDE 105 98 - 107 mmol/L INTERFACE SYSTEM CO2 23.1 22 - 31 mmol/L INTERFACE SYSTEM ANION GAP 13 4 - 20 INTERFACE SYSTEM CALCIUM 8.7 8.5 - 10.1 mg/dl INTERFACE SYSTEM ALBUMIN 3.4 3.4 - 5.0 g/dl INTERFACE SYSTEM TOTAL PROTEIN 6.9 6.4 - 8.2 g/dl INTERFACE SYSTEM GLOBULIN (CALC) 3.5 INTERFACE SYSTEM ALBUMIN/GLOBULI 1.0 INTERFACE N RATIO SYSTEM BILIRUBIN TOTAL 0.3 <1.1 mg/dl INTERFACE SYSTEM ALKALINE 101 50 - 136 IU/L INTERFACE PHOSPHATASE SYSTEM AST 24 10 - 40 IU/L INTERFACE SYSTEM ALT 72 (H) 25 - 70 IU/L INTERFACE SYSTEM Specimen Narrative Performed At FASTING INTERFACE SYSTEM Performing Organization Address City/State/Zipcode Ph one Number INTERFACE SYSTEM INTERFACE SYSTEM Refer to clinic/hospital department documented in this encounter Visit Diagnoses Diagnosis predatory animal exterminator (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
--- OUTSIDE RECORDS SUMMARY | 2019-10-21 18:56 | XMS REPORT | Encounter Summary ---
Author Author [facility] Organization [facility] Address Unknown Phone Unavailable Care Team Providers Care Collection Clerk Name Role Phone Phong Stephens MD PCP Unavailable Robby Rajan APRN Unavailable Phong Stephens MD PCP Unavailable Carlos Middleton PCP Lorraine Hathaway MD PCP [facility], External Provider PCP Unavailable Encounter Details Care Team Description Date Type Department Maurice Durbin MD [address] [place] [address] DM w/o Complication Type II (Primary Dx) 06/22/2006 Outpatient [facility] Consol idated Historical [facility] [address] [place] [address] Social History Date Tobacco Use Types Packs/Day [...]
--- OUTSIDE RECORDS SUMMARY | 2019-10-21 18:56 | XMS REPORT | Encounter Summary ---
Author Author [facility] Organization [facility] Address Unknown Phone Unavailable Care Team Providers Care Products Mechanical Design Engineer Name Role Phone Phong Stephens MD PCP Unavailable Robby Rajan APRN Unavailable Phong Stephens MD PCP Unavailable Carlos Middleton PCP Lorraine Hathaway MD PCP Mhcf, External Provider PCP Unavailable Encounter Details Care Team Description Date Type Department Maurice Durbin MD [address] [place] [address] Pain in Limb (Primary Dx) 04/19/2006 Outpatient [facility] Consol idated Historical [facility] [address] [place] [address] Social History Date Tobacco Use Types Packs/Day [...]
--- OUTSIDE RECORDS SUMMARY | 2019-10-21 18:56 | XMS REPORT | Encounter Summary ---
Author Author [facility] Organization [facility] Address Unknown Phone Unavailable Care Team Providers Care Mill Tender Washing Name Role Phone Phong Stephens MD PCP Unavailable Robby Rajan APRN Unavailable Phong Stephens MD PCP Unavailable Carlos Middleton PCP Lorraine Hathaway MD PCP [facility]cf, External Provider PCP Unavailable Encounter Details Care Team Description Date Type Department Maurice Durbin MD [address] [place] [phone] Pure Hypercholesterolem (Primary Dx) 05/31/2006 Outpatient [facility] [address] [facility] [...] Priority Date/Time Associated Diag nosis PROTIME-INR Routine 05/31/2006 11:10 AM ETIOLOGIST HEMOGLOBIN A1C Routine 05/31/2006 11:10 AM ETIOLOGIST LIPID PANEL Routine 05/31/2006 11:10 AM ETIOLOGIST COMPREHENSIVE METABOLIC Routine 05/31/2006 PANEL 11:10 AM ETIOLOGIST documented in this encounter Results * HEMOGLOBIN A1C (05/31/2006 11:10 AM ETIOLOGIST) HEMOGLOBIN A1C 5.9 0 - 6.0 % INTERFACE SYSTEM GLUCOSE, MEAN 121 mg/dl INTERFACE BLOOD SYSTEM Specimen Performing Organization Address [facility] one Number INTERFACE SYSTEM INTERFACE SYSTEM Refer to clinic/hospital department * PROTIME-INR (05/31/2006 11:10 AM ETIOLOGIST) PROTIME 36.4 (H) 9.0 - 11.0 Sec INTERFACE SYSTEM INR 3.64 (H) 2.0 - 3.0 INTERFACE SYSTEM Specimen Performing Organization Address [facility] one Number INTERFACE SYSTEM INTERFACE SYSTEM Refer to clinic/hospital department * LIPID PANEL (05/31/2006 11:10 AM ETIOLOGIST) CHOLESTEROL 242 (H) 140 - 200 mg/dl INTERFACE SYSTEM TRIGLYCERIDE 307 (H) 0 - 199 mg/dl INTERFACE Comment: SYSTEM REFERENCE RANGE - TRIGLYCERIDES NORMAL LESS THAN 150 mg/dl BORDERLINE HIGH 150 - 199 mg/dl HIGH 200 - 499 mg/dl VERY HIGH GREATER THAN OR = 500 mg/dl HDL 37 29 - 89 mg/dl INTERFACE SYSTEM LDL 137 (H) <130 mg/dl INTERFACE CHOLESTEROL, Comment: SYSTEM DIRECT --- RISK CATEGORY LDL GOAL High risk: <100 mg/dl CHD or CHD risk equivalents (optional goal: <70 mg/dl) (10-year risk > 20%) Moderately high risk <130 mg/dl 2+ risk factors (10-year risk 10% to 20%) Moderate risk: <130 mg/dl 2+ risk factors (10-year risk < 10%) Lower risk: <160 mg/dl 0-1 risk factor Specimen Performing Organization Address [facility] Ph one Number INTERFACE SYSTEM INTERFACE SYSTEM Refer to clinic/hospital department * COMPREHENSIVE METABOLIC PANEL (05/31/2006 11:10 AM ETIOLOGIST) GLUCOSE 97 70 - 110 mg/dl INTERFACE SYSTEM BUN 12.0 7 - 20 mg/dl INTERFACE SYSTEM CREATININE 0.9 0.6 - 1.0 mg/dl INTERFACE SYSTEM BUN/CREAT RATIO 13.3 10 - 20 INTERFACE SYSTEM GFR 76 >90 ml/min INTERFACE SYSTEM SODIUM 136 135 - 145 mmol/L INTERFACE SYSTEM POTASSIUM 4.1 3.3 - 4.8 mmol/L INTERFACE SYSTEM CHLORIDE 104 98 - 107 mmol/L INTERFACE SYSTEM CO2 23.4 22 - 31 mmol/L INTERFACE SYSTEM ANION GAP 13 4 - 20 INTERFACE SYSTEM CALCIUM 8.9 8.5 - 10.1 mg/dl INTERFACE SYSTEM ALBUMIN 3.3 (L) 3.4 - 5.0 g/dl INTERFACE SYSTEM TOTAL PROTEIN 6.7 6.4 - 8.2 g/dl INTERFACE SYSTEM GLOBULIN (CALC) 3.4 INTERFACE SYSTEM ALBUMIN/GLOBULI 1.0 INTERFACE N RATIO SYSTEM BILIRUBIN TOTAL 0.3 <1.1 mg/dl INTERFACE SYSTEM ALKALINE 114 50 - 136 IU/L INTERFACE PHOSPHATASE SYSTEM AST 23 10 - 40 IU/L INTERFACE SYSTEM ALT 79 (H) 25 - 70 IU/L INTERFACE SYSTEM Specimen Performing Organization Address [facility] Ph one Number INTERFACE SYSTEM INTERFACE SYSTEM Refer to clinic/hospital department documented in this encounter Visit Diagnoses Diagnosis Pure hypercholesterolem - Primary Pure hypercholesterolemia documented in this encounter
--- OUTSIDE RECORDS SUMMARY | 2019-10-21 18:56 | XMS REPORT | Encounter Summary ---
Author Author [facility] Organization [facility] Address Unknown Phone Unavailable Care Team Providers Care Inspector Shells Name Role Phone Phong Stephens MD PCP Unavailable Robby Rajan APRN Unavailable Phong Stephens MD PCP Unavailable Carlos Middleton PCP Lorraine Hathaway MD PCP M[facility]cf, External Provider PCP Unavailable Encounter Details Care Team Description Date Type Department Maurice Durbin MD [address] [place] [address] Shortness of Breath (Primary Dx) 03/28/2006 [facility] [address] [address] Social History Date Tobacco [...]
--- OUTSIDE RECORDS SUMMARY | 2019-10-21 18:56 | XMS REPORT | Encounter Summary ---
Author Author [facility] Organization [facility] Address Unknown Phone Unavailable Care Team Providers Care Pit Crane Operator Name Role Phone Phong Stephens MD PCP Unavailable Robby Rajan APRN Unavailable Phong Stephens MD PCP Unavailable Carlos Middleton PCP Lorraine Hathaway MD PCP [facility]cf, External Provider PCP Unavailable Encounter Details Care Team Description Date Type Department Maurice Durbin MD [address] [place] [phone] No Proc for Reasons NEC (Primary Dx) 03/30/2006 Outpatient [facility] [address] IC[facility] [...]
--- OUTSIDE RECORDS SUMMARY | 2019-10-21 18:56 | XMS REPORT | Encounter Summary ---
Author Author [facility] Organization [facility] Address Unknown Phone Unavailable Care Team Providers Care Supervisor Curing Room Name Role Phone Phong Stephens MD PCP Unavailable Robby Rajan APRN Unavailable Phong Stephens MD PCP Unavailable Carlos Middleton PCP Lorraine Hathaway MD PCP [facility]cf, External Provider PCP Unavailable Encounter Details Care Team Description Date Type Department Maurice Durbin MD [address] [place] [phone] Encounter for Long-Term (Current) Use of Anticoagulants (Primary Dx) 07/17/2006 Outpatient [facility] [address] [facility] Historical MEDICAID Social History Date Tobacco Use [...] as of this encounter Visit Diagnoses Diagnosis buttermaker continuous churn (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
--- OUTSIDE RECORDS SUMMARY | 2019-10-21 18:56 | XMS REPORT | Encounter Summary ---
Author Author [facility] Organization [facility] Address Unknown Phone Unavailable Care Team Providers Care Kaiako Kura Tuarua Name Role Phone Phong Stephens MD PCP Unavailable Robby Rajan APRN Unavailable Phong Stephens MD PCP Unavailable Carlos Middleton PCP Lorraine Hathaway MD PCP [facility]cf, External Provider PCP Unavailable Encounter Details Care Team Description Date Type Department Kalyan Cruz ARNP [address] [place] [address] Nausea Alone (Primary Dx) 05/05/2006 Emergency [facility] Emergency Department [address] [phone] Social History Date Tobacco Use [...]
--- OUTSIDE RECORDS SUMMARY | 2019-10-21 18:56 | XMS REPORT | Encounter Summary ---
Author Author [facility] Organization [facility] Address Unknown Phone Unavailable Care Team Providers Care Trauma Counsellor Name Role Phone Phong Stephens MD PCP Unavailable Robby Rajan APRN Unavailable Phong Stephens MD PCP Unavailable Carlos Middleton PCP Lorraine Hathaway MD PCP [facility], External Provider PCP Unavailable Encounter Details Care Team Description Date Type Department Heydi Harrell MD [address] [place] [phone] DM Neuro Manif Type II (Primary Dx) 03/24/2006 Emergency [facility] Emergency Department [address] [address] Social History Date Tobacco [...] Procedure Name Priority Date/Time Associated Diag nosis PTT Routine 03/24/2006 8:28 PM CDT PROTIME-INR Routine 03/24/2006 8:28 PM CDT D-DIMER Routine 03/24/2006 8:28 PM CDT CBC WITH MANUAL Routine 03/24/2006 DIFFERENTIAL 8:28 PM CDT COMPREHENSIVE METABOLIC Routine 03/24/2006 PANEL 8:28 PM CDT documented in this encounter Results * D-DIMER (03/24/2006 8:28 PM CDT) [facility] D-DIMER QUANT <100.0 (L) 100 - 400 ng/mL INTERFACE Comment: SYSTEM 90% of patients testing below 400 ng/ml have proven negative for Thromboembolic Events. Specimen Performing Organization Address [facility] one Number INTERFACE SYSTEM INTERFACE SYSTEM Refer to clinic/hospital department * CBC WITH MANUAL DIFFERENTIAL (03/24/2006 8:28 PM CDT) [facility] WBC 7.8 4.0 - 10.8 x10E3 INTERFACE SYSTEM RBC 4.09 (L) 4.2 - 5.4 x10E6 INTERFACE SYSTEM HEMOGLOBIN 13.5 12.0 - 16.0 g/dL INTERFACE SYSTEM HEMATOCRIT 38.1 37 - 47 % INTERFACE SYSTEM MCV 93.1 81.0 - 99.0 fL INTERFACE SYSTEM MCH 33.0 27 - 33 pg INTERFACE SYSTEM MCHC 35.5 (H) 32 - 35 g/dL INTERFACE SYSTEM RDW 15.7 12.1 - 16.7 % INTERFACE SYSTEM PLATELETS 147 130 - 400 x10E3 INTERFACE SYSTEM MPV 8.4 7.4 - 10.4 fL INTERFACE SYSTEM NEUTROPHILS 60.0 37.0 - 75.0 % INTERFACE SYSTEM MONOCYTES 6.0 0.0 - 12.0 % INTERFACE SYSTEM EOSINOPHILS 2.6 0.0 - 7.0 % INTERFACE SYSTEM BASOPHILS 0.7 0.0 - 2.5 % INTERFACE SYSTEM NEUTROPHIL 4.7 2.0 - 6.9 x10E3 INTERFACE ABSOLUTE SYSTEM MONOCYTE 0.5 0.0 - 0.9 x10E3 INTERFACE ABSOLUTE SYSTEM EOSINOPHIL 0.2 0.0 - 0.7 x10E3 INTERFACE ABSOLUTE SYSTEM BASOPHILS 0.1 0 - 0.2 x10E3 INTERFACE ABSOLUTE SYSTEM EOSINOPHILS 4 % INTERFACE SYSTEM BANDS 12 % INTERFACE SYSTEM NEUTROPHILS, 52 % INTERFACE SEG SYSTEM LYMPHOCYTES 28 % INTERFACE SYSTEM MONOCYTE 4 % INTERFACE SYSTEM PLATELET EST. Normal INTERFACE SYSTEM WBC ESTIMATE Normal INTERFACE SYSTEM Specimen Performing Organization Address [facility] one Number INTERFACE SYSTEM INTERFACE SYSTEM Refer to clinic/hospital department * PTT (03/24/2006 8:28 PM CDT) PTT 36 (H) 23 - 31 Sec INTERFACE SYSTEM Specimen Performing Organization Address [facility] one Number INTERFACE SYSTEM INTERFACE SYSTEM Refer to clinic/hospital department * PROTIME-INR (03/24/2006 8:28 PM CDT) PROTIME 16.0 (H) 9.0 - 11.0 Sec INTERFACE SYSTEM INR 1.60 (L) 2.0 - 3.0 INTERFACE SYSTEM Specimen Performing Organization Address [facility] one Number INTERFACE SYSTEM INTERFACE SYSTEM Refer to clinic/hospital department * COMPREHENSIVE METABOLIC PANEL (03/24/2006 8:28 PM CDT) GLUCOSE 140 (H) 70 - 110 mg/dl INTERFACE SYSTEM BUN 19.0 7 - 20 mg/dl INTERFACE SYSTEM CREATININE 0.9 0.6 - 1.0 mg/dl INTERFACE SYSTEM BUN/CREAT RATIO 21.1 (H) 10 - 20 INTERFACE SYSTEM GFR 77 >90 ml/min INTERFACE SYSTEM SODIUM 141 135 - 145 mmol/L INTERFACE SYSTEM POTASSIUM 3.4 3.3 - 4.8 mmol/L INTERFACE SYSTEM CHLORIDE 104 98 - 107 mmol/L INTERFACE SYSTEM CO2 28.3 22 - 31 mmol/L INTERFACE SYSTEM ANION GAP 12 4 - 20 INTERFACE SYSTEM CALCIUM 8.4 (L) 8.5 - 10.1 mg/dl INTERFACE SYSTEM ALBUMIN 3.1 (L) 3.4 - 5.0 g/dl INTERFACE SYSTEM TOTAL PROTEIN 6.4 6.4 - 8.2 g/dl INTERFACE SYSTEM GLOBULIN (CALC) 3.3 INTERFACE SYSTEM ALBUMIN/GLOBULI 0.9 INTERFACE N RATIO SYSTEM BILIRUBIN TOTAL 0.2 <1.1 mg/dl INTERFACE SYSTEM ALKALINE 95 50 - 136 IU/L INTERFACE PHOSPHATASE SYSTEM AST 36 10 - 40 IU/L INTERFACE SYSTEM ALT 82 (H) 25 - 70 IU/L INTERFACE SYSTEM Specimen Performing Organization Address [facility] one Number INTERFACE SYSTEM INTERFACE SYSTEM Refer to clinic/hospital department documented in this encounter Visit Diagnoses Diagnosis 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
--- OUTSIDE RECORDS SUMMARY | 2019-10-21 18:56 | XMS REPORT | Encounter Summary ---
Author Author [facility] Organization [facility] Address Unknown Phone Unavailable Care Team Providers Care Offset Press Assistant Name Role Phone Phong Stephens MD PCP Unavailable Robby Rajan APRN Unavailable Phong Stephens MD PCP Unavailable Carlos Middleton PCP Lorraine Hathaway MD PCP M[facility]cf, External Provider PCP Unavailable Encounter Details Care Team Description Date Type Department Maurice Durbin MD [address] [place] [address] Other Pulmonary Embolism and Infarction (Primary Dx) 03/27/2006 Outpatient [facility] Consol idated [facility] [address] [place] [address] Social History Date Tobacco Use Types Packs/Day Years Used Never Assessed Sex Assigned at Date Recorded Not on file Industry Job Start Date Occupation Not on file Not on file Not on file Travel End Travel History Travel Start No recent travel history available. documented as of this encounter Plan of Treatment Not on filedocumented as of this encounter Visit Diagnoses Diagnosis Other pulmonary embolism and infarction - Primary documented in this encounter
--- OUTSIDE RECORDS SUMMARY | 2019-10-21 18:57 | XMS REPORT | Encounter Summary ---
Author Author [facility] Organization [facility] Address Unknown Phone Unavailable Care Team Providers Care News Wire Photo Operator Name Role Phone Phong Stephens MD PCP Unavailable Robby Rajan APRN Unavailable Phong Stephens MD PCP Unavailable Carlos Middleton PCP Lorraine Hathaway MD PCP M[facility]cf, External Provider PCP Unavailable Encounter Details Care Team Description Date Type Department Maurice Durbin MD [address] [place] [address] Dyspareunia (Primary Dx) 01/16/2006 Outpatient [facility] Consol idated [facility] [address] [place] [address] Social History Date Tobacco Use Types Packs/Day Years Used Never Assessed Sex Assigned at Date Recorded Not on file Industry Job Start Date Occupation Not on file Not on file Not on file Travel End Travel History Travel Start No recent travel history available. documented as of this encounter Plan of Treatment Not on filedocumented as of this encounter Visit Diagnoses Diagnosis Dyspareunia - Primary documented in this encounter
--- OUTSIDE RECORDS SUMMARY | 2019-10-21 18:57 | XMS REPORT | Encounter Summary ---
Author Author [facility] Organization [facility] Address Unknown Phone Unavailable Care Team Providers Care Polysomnographic Technologist Name Role Phone Phong Stephens MD PCP Unavailable Robby Rajan APRN Unavailable Phong Stephens MD PCP Unavailable Carlos Middleton PCP Lorraine Hathaway MD PCP M[facility]cf, External Provider PCP Unavailable Encounter Details Care Team Description Date Type Department Maurice Durbin MD [address] [place] [address] Swelling of Limb (Primary Dx) 02/02/2006 Outpatient [facility] Consol idated Historical [facility] [address] [place] [address] Social History Date Tobacco Use Types Packs/Day Years Used Never Assessed Sex Assigned at Date Recorded Not on file Industry Job Start Date Occupation Not on file Not on file Not on file Travel End Travel History Travel Start No recent travel history available. documented as of this encounter Plan of Treatment Not on filedocumented as of this encounter Visit Diagnoses Diagnosis Swelling of limb - Primary documented in this encounter
--- OUTSIDE RECORDS SUMMARY | 2019-10-21 18:57 | XMS REPORT | Encounter Summary ---
Author Author [facility] Organization [facility] Address Unknown Phone Unavailable Care Team Providers Care Student Support Counselor Name Role Phone Phong Stephens MD PCP Unavailable Robby Rajan APRN Unavailable Phong Stephens MD PCP Unavailable Carlos Middleton PCP Lorraine Hathaway MD PCP M[facility]cf, External Provider PCP Unavailable Encounter Details Care Team Description Date Type Department Molina Valenzuela, DO [address] [place] [address] Unspecified Symptom Associated with Fema le Genital Organs (Primary Dx) 01/18/2006 Outpatient [facility] [address] [place] [address] Social History Date Tobacco Use [...] of this encounter Visit Diagnoses Diagnosis Unspecified symptom associated with fem mihir genital organs - Primary documented in this encounter
--- OUTSIDE RECORDS SUMMARY | 2019-10-21 18:57 | XMS REPORT | Encounter Summary ---
Author Author [facility] Organization [facility] Address Unknown Phone Unavailable Care Team Providers Care Growth Hacker Name Role Phone Phong Stephens MD PCP Unavailable Robby Rajan APRN Unavailable Phong Stephens MD PCP Unavailable Carlos Middleton PCP Lorraine Hathaway MD PCP [facility]cf, External Provider PCP Unavailable Encounter Details Care Team Description Date Type Department Molina Valenzuela, DO [address] [place] [address] Dyspareunia (Primary Dx) 01/17/2006 Outpatient [facility] Consol idated Historical [facility] [address] [place] [address] Social History Date Tobacco Use Types Packs/Day [...]
--- OUTSIDE RECORDS SUMMARY | 2019-10-21 18:57 | XMS REPORT | Encounter Summary ---
Author Author [facility] Organization [facility] Address Unknown Phone Unavailable Care Team Providers Care Base Wad Operator Adjuster Name Role Phone Phong Stephens MD PCP Unavailable Robby Rajan APRN Unavailable Phong Stephens MD PCP Unavailable Carlos Middleton PCP Lorraine Hathaway MD PCP Mhcf, External Provider PCP Unavailable Encounter Details Care Team Description Date Type Department Maurice Durbin MD [address] [place] [address] Encounter for Long-Term (Current) Use of Anticoagulants (Primary Dx) 02/15/2006 Outpatient [facility] Consol idated Historical [facility] [address] [place] [address] Social History Date Tobacco Use Types Packs/Day Years Used Never Assessed Sex Assigned at Date Recorded Not on file Industry Job Start Date Occupation Not on file Not on file Not on file Travel End Travel History Travel Start No recent travel history available. documented as of this encounter Plan of Treatment Not on filedocumented as of this encounter Visit Diagnoses Diagnosis retirement (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
--- OUTSIDE RECORDS SUMMARY | 2019-10-21 18:57 | XMS REPORT | Encounter Summary ---
Author Author [facility] Organization [facility] Address Unknown Phone Unavailable Care Team Providers Care Motor Driver Name Role Phone Phong Stephens MD PCP Unavailable Robby Rajan APRN Unavailable Phong Stephens MD PCP Unavailable Carlos Middleton PCP Lorraine Hathaway MD PCP Mhcf, External Provider PCP Unavailable Encounter Details Care Team Description Date Type Department Molina Valenzuela, DO [address] [place] [address] Dyspareunia (Primary Dx) 01/17/2006 Outpatient [facility] [address] [facility] Historical MEDICAID Social History Date [...] Procedure Name Priority Date/Time Associated Diag nosis CHLAMYDIA/N. GONORRHOEAE, Routine 01/17/2006 DNA documented in this encounter Results * CHLAMYDIA/N. GONORRHOEAE, DNA (01/17/2006) CHLAMYDIA DNA NOT DETECTED NOT DETECTED INTERFACE AMPLIFICATION SYSTEM GC DNA NOT DETECTED NOT DETECTED INTERFACE AMPLIFICATION Comment: SYSTEM Test performed at [facility] [address] Specimen Performing Organization Address City/State/[place] Ph one Number INTERFACE SYSTEM INTERFACE SYSTEM Refer to clinic/hospital department documented in this encounter Visit Diagnoses Diagnosis Dyspareunia - Primary documented in this encounter
--- OUTSIDE RECORDS SUMMARY | 2019-10-21 18:57 | XMS REPORT | Encounter Summary ---
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
--- OUTSIDE RECORDS SUMMARY | 2019-10-21 18:57 | XMS REPORT | Encounter Summary ---
Author Author [facility] Organization [facility] Address Unknown Phone Unavailable Care Team Providers Care Physical Therapy Teacher Name Role Phone Phong Stephens MD PCP Unavailable Robby Rajan APRN Unavailable Phong Stephens MD PCP Unavailable Carlos Middleton PCP Lorraine Hathaway MD PCP Mhcf, External Provider PCP Unavailable Encounter Details Care Team Description Date Type Department Maurice Durbin MD [address] [place] [phone] Other General Symptoms (Primary Dx) 01/16/2006 Outpatient [facility] Historical Social History Date Tobacco Use Types [...] of this encounter Visit Diagnoses Diagnosis Other general symptoms(780.99) - Primar y Other general symptoms documented in this encounter
--- OUTSIDE RECORDS SUMMARY | 2019-10-21 18:57 | XMS REPORT | Encounter Summary ---
Author Author [facility] Organization [facility] Address Unknown Phone Unavailable Care Team Providers Care Industrial Safety And Health Specialist Name Role Phone Phong Stephens MD PCP Unavailable Robby Rajan APRN Unavailable Phong Stephens MD PCP Unavailable Carlos Middleton PCP Lorraine Hathaway MD PCP Mhcf, External Provider PCP Unavailable Encounter Details Care Team Description Date Type Department Kalyan Cruz ARNP [address] [place] [address] Unspecified Constipation (Primary Dx) 02/18/2006 Outpatient [facility] [address] [place] [address] Social History Date Tobacco Use [...]
--- OUTSIDE RECORDS SUMMARY | 2019-10-21 18:57 | XMS REPORT | Encounter Summary ---
Author Author [facility] Organization [facility] Address Unknown Phone Unavailable Care Team Providers Care Block And Case Maker Name Role Phone Phong Stephens MD PCP Unavailable Robby Rajan APRN Unavailable Phong Stephens MD PCP Unavailable Carlos Middleton PCP Lorraine Hathaway MD PCP Mhcf, External Provider PCP Unavailable Encounter Details Care Team Description Date Type Department Maurice Durbin MD [address] [place] [address] Unspecified Backache (Primary Dx) 01/19/2006 Outpatient [facility] Consol idated Historical [facility] [address] [place] [address] Social History Date Tobacco Use Types Packs/Day [...]
--- OUTSIDE RECORDS SUMMARY | 2019-10-21 18:57 | XMS REPORT | Encounter Summary ---
Author Author [facility] Organization [facility] Address Unknown Phone Unavailable Care Team Providers Care Automobile Mechanic Helper Name Role Phone Phong Stephens MD PCP Unavailable Robby Rajan APRN Unavailable Phong Stephens MD PCP Unavailable Carlos Middleton PCP Lorraine Hathaway MD PCP M[facility]cf, External Provider PCP Unavailable Encounter Details Care Team Description Date Type Department Maurice Durbin MD [address] [place] [address] Pain in Limb (Primary Dx) 01/01/2006 Outpatient [facility] [address] [place] [address] Social History Date Tobacco Use [...]
--- OUTSIDE RECORDS SUMMARY | 2019-10-21 18:57 | XMS REPORT | Encounter Summary ---
Author Author [facility] Organization [facility] Address Unknown Phone Unavailable Care Team Providers Care Provider Engagement Executive Name Role Phone Phong Stephens MD PCP Unavailable Robby Rajan APRN Unavailable Phong Stephens MD PCP Unavailable Carlos Middleton PCP Lorraine Hathaway MD PCP Mhcf, External Provider PCP Unavailable Encounter Details Care Team Description Date Type Department Maurice Durbin MD [address] [place] [phone] Embolism and Thrombosis of Other Specifi ed Veins (Primary Dx) 01/16/2006 Outpatient [facility] [address] [facility] ICARE [...] Priority Date/Time Associated Diag nosis PROTIME-INR Routine 01/16/2006 3:25 PM CDT documented in this encounter Results * PROTIME-INR (01/16/2006 3:25 PM CDT) PROTIME 29.3 (H) 9.0 - 11.0 Sec INTERFACE SYSTEM INR 2.93 2.0 - 3.0 INTERFACE SYSTEM Specimen Performing Organization Address City/State/Zipcode Ph one Number INTERFACE SYSTEM INTERFACE SYSTEM Refer to clinic/hospital department documented in this encounter Visit Diagnoses Diagnosis Other acute embolism veins - Primary Acute venous embolism and thrombosis of other specified veins documented in this encounter
--- OUTSIDE RECORDS SUMMARY | 2019-10-21 18:57 | XMS REPORT | Encounter Summary ---
Author Author [facility] Organization [facility] Address Unknown Phone Unavailable Care Team Providers Care Sales Engineer Engineered Products Name Role Phone Phong Stephens MD PCP Unavailable Robby Rajan APRN Unavailable Phong Stephens MD PCP Unavailable Carlos Middleton PCP Lorraine Hathaway MD PCP Mhcf, External Provider PCP Unavailable Encounter Details Care Team Description Date Type Department Maurice Durbin MD [address] [place] [address] Unspecified Backache (Primary Dx) 01/12/2006 Outpatient [facility] Consol idated Historical [facility] [address] [place] [address] Social History Date Tobacco Use Types Packs/Day [...]
--- OUTSIDE RECORDS SUMMARY | 2019-10-21 18:57 | XMS REPORT | Encounter Summary ---
Author Author [facility] Organization [facility] Address Unknown Phone Unavailable Care Team Providers Care Track Oiler Name Role Phone Phong Stephens MD PCP Unavailable Robby Rajan APRN Unavailable Phong Stephens MD PCP Unavailable Carlos Middleton PCP Lorraine Hathaway MD PCP M[facility]cf, External Provider PCP Unavailable Encounter Details Care Team Description Date Type Department Kalyan Cruz ARNP [address] [place] [address] Unspecified Impaction of Intestine (Prim kierra Dx) 02/18/2006 Emergency [facility] Emergency Department [address] [address] Social History Date Tobacco Use [...] as of this encounter Visit Diagnoses Diagnosis Impaction of intestine, unspecified - P rimary documented in this encounter
--- OUTSIDE RECORDS SUMMARY | 2019-10-21 18:57 | XMS REPORT | Encounter Summary ---
Author Author [facility] Organization [facility] Address Unknown Phone Unavailable Care Team Providers Care Sas Programmer Analyst Name Role Phone Phong Stephens MD PCP Unavailable Robby Rajan APRN Unavailable Phong Stephens MD PCP Unavailable Carlos Middleton PCP Lorraine Hathaway MD PCP [facility]cf, External Provider PCP Unavailable Encounter Details Care Team Description Date Type Department Jr Yemi Nunn, [address] [place] [phone] Abdominal Pain, Periumbilic (Primary Dx) 03/05/2006 Emergency [facility] Emergency Department [address] [address] Social History Date Tobacco Use [...] this encounter Visit Diagnoses Diagnosis Abdominal pain, periumbilic - Primary documented in this encounter
--- OUTSIDE RECORDS SUMMARY | 2019-10-21 18:57 | XMS REPORT | Encounter Summary ---
Author Author [facility] Organization [facility] Address Unknown Phone Unavailable Care Team Providers Care Vault Teller Name Role Phone Phong Stephens MD PCP Unavailable Robby Rajan APRN Unavailable Phong Stephens MD PCP Unavailable Carlos Middleton PCP Lorraine Hathaway MD PCP M[facility]cf, External Provider PCP Unavailable Encounter Details Care Team Description Date Type Department Maurice Durbin MD [address] [place] [address] Unspecified Backache (Primary Dx) 01/25/[address] [facility] Consol idated Historical [facility] [address] [place] [address] Social History Date Tobacco Use Types Packs/Day [...]
--- OUTSIDE RECORDS SUMMARY | 2019-10-21 18:57 | XMS REPORT | Encounter Summary ---
Author Author [facility] Organization [facility] Address Unknown Phone Unavailable Care Team Providers Care Cost Accounting Clerk Name Role Phone Phong Stephens MD PCP Unavailable Robby Rajan APRN Unavailable Phong Stephens MD PCP Unavailable Carlos Middleton PCP Lorraine Hathaway MD PCP Mhcf, External Provider PCP Unavailable Encounter Details Care Team Description Date Type Department Molina Valenzuela, DO [address] [place] [address] Dyspareunia (Primary Dx) 02/15/2006 Outpatient [facility] Consol idated Historical [facility] [address] [place] [address] Social History Date Tobacco Use Types Packs/Day [...]
--- OUTSIDE RECORDS SUMMARY | 2019-10-21 18:57 | XMS REPORT | Encounter Summary ---
Author Author [facility] Organization [facility] Address Unknown Phone Unavailable Care Team Providers Care Edge Bander Hand Name Role Phone Phong Stephens MD PCP Unavailable Robby Rajan APRN Unavailable Phong Stephens MD PCP Unavailable Carlos Middleton PCP Lorraine Hathaway MD PCP M[facility]cf, External Provider PCP Unavailable Encounter Details Care Team Description Date Type Department Maurice Durbin MD [address] [place] [address] Unspecified Backache (Primary Dx) 02/16/2006 Outpatient [facility] Consol idated Historical [facility] [address] [place] [address] Social History Date Tobacco Use Types Packs/Day [...]
--- OUTSIDE RECORDS SUMMARY | 2019-10-21 18:57 | XMS REPORT | Encounter Summary ---
Author Author [facility] Organization [facility] Address Unknown Phone Unavailable Care Team Providers Care Dragline Operator Name Role Phone Phong Stephens MD PCP Unavailable Robby Rajan APRN Unavailable Phong Stephens MD PCP Unavailable Carlos Middleton PCP Lorraine Hathaway MD PCP [facility]cf, External Provider PCP Unavailable Encounter Details Care Team Description Date Type Department Maurice Durbin MD [address] [place] [phone] Encounter for Long-Term (Current) Use of Anticoagulants (Primary Dx) 01/02/2006 Outpatient [facility] [address] [facility] Historical MEDICAID Social History Date Tobacco [...] Priority Date/Time Associated Diag nosis PROTIME-INR Routine 01/02/2006 8:05 AM CDT documented in this encounter Results * PROTIME-INR (01/02/2006 8:05 AM CDT) PROTIME 14.0 (H) 9.0 - 11.0 Sec INTERFACE SYSTEM INR 1.40 (L) 2.0 - 3.0 INTERFACE SYSTEM Specimen Performing Organization Address City/State/Zipcode Ph one Number INTERFACE SYSTEM INTERFACE SYSTEM Refer to clinic/hospital department documented in this encounter Visit Diagnoses Diagnosis 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
--- OUTSIDE RECORDS SUMMARY | 2019-10-21 18:57 | XMS REPORT | Encounter Summary ---
Author Author [facility] Organization [facility] Address Unknown Phone Unavailable Care Team Providers Care Bridge Manager Name Role Phone Phong Stephens MD PCP Unavailable Robby Rajan APRN Unavailable Phong Stephens MD PCP Unavailable Carlos Middleton PCP Lorraine Hathaway MD PCP Mhcf, External Provider PCP Unavailable Encounter Details Care Team Description Date Type Department Maurice Durbin MD [address] [place] [phone] Pain in Limb (Primary Dx) 12/11/2005 Outpatient [facility] [address] [facility] Historical MEDICAID Social History Date [...] Procedure Name Priority Date/Time Associated Diag nosis URIC ACID Routine 12/11/2005 1:55 PM CDT documented in this encounter Results * URIC ACID (12/11/2005 1:55 PM CDT) URIC ACID 4.9 2.6 - 6.0 mg/dl INTERFACE SYSTEM Specimen Performing Organization Address City/State/Zipcode Ph one Number INTERFACE SYSTEM INTERFACE SYSTEM Refer to clinic/hospital department documented in this encounter Visit Diagnoses Diagnosis Pain in limb - Primary Pain in soft tissues of limb documented in this encounter
--- OUTSIDE RECORDS SUMMARY | 2019-10-21 18:57 | XMS REPORT | Encounter Summary ---
Author Author [facility] Organization [facility] Address Unknown Phone Unavailable Care Team Providers Care Nuclear Pharmacist Name Role Phone Phong Stephens MD PCP Unavailable Rboby Rajan APRN Unavailable Phong Stephens MD PCP Unavailable Carlos Middleton PCP Lorraine Hathaway MD PCP Mhcf, External Provider PCP Unavailable Encounter Details Care Team Description Date Type Department Mauirce Durbin MD [address] [place] [phone] Encounter for Long-Term (Current) Use of Anticoagulants (Primary Dx) 02/02/2006 Outpatient [facility] [address] [facility] Historical MEDICAID Social History Date [...] Priority Date/Time Associated Diag nosis PROTIME-INR Routine 02/02/2006 10:55 AM CDT documented in this encounter Results * PROTIME-INR (02/02/2006 10:55 AM CDT) PROTIME 35.1 (H) 9.0 - 11.0 Sec INTERFACE SYSTEM INR 3.51 (H) 2.0 - 3.0 INTERFACE SYSTEM Specimen Narrative Performed At Preop Test? 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
--- OUTSIDE RECORDS SUMMARY | 2019-10-21 18:57 | XMS REPORT | Encounter Summary ---
Author Author [facility] Organization [facility] Address Unknown Phone Unavailable Care Team Providers Care Steel Fabricator Name Role Phone Phong Stephens MD PCP Unavailable Robby Rajan APRN Unavailable Phong Stephens MD PCP Unavailable Carlos Middleton PCP Lorraine Hathaway MD PCP Mhcf, External Provider PCP Unavailable Encounter Details Care Team Description Date Type Department Maurice Durbin MD [address] [place] [phone] Urinary Tract Infection, Site not Specif ied (Primary Dx) 02/21/2006 Inpatient [facility] [place] [address] [place] [address] Social History Date Tobacco Use [...] Name Priority Date/Time Associated Diag nosis CBC WITHOUT DIFFERENTIAL Routine 02/23/2006 6:38 AM CDT COMPREHENSIVE METABOLIC Routine 02/23/2006 PANEL 6:38 AM CDT CBC WITHOUT DIFFERENTIAL Routine 02/22/2006 6:20 AM CDT COMPREHENSIVE METABOLIC Routine 02/22/2006 PANEL 6:20 AM CDT POTASSIUM LEVEL Routine 02/21/2006 5:36 AM CDT MAGNESIUM LEVEL Routine 02/21/2006 1:25 AM CDT PROTIME-INR Routine 02/21/2006 12:00 AM CDT CBC WITH MANUAL Routine 02/20/2006 DIFFERENTIAL 11:50 PM CDT LIPASE Routine 02/20/2006 11:50 PM CDT AMYLASE Routine 02/20/2006 11:50 PM CDT COMPREHENSIVE METABOLIC Routine 02/20/2006 PANEL 11:50 PM CDT documented in this encounter Results * CBC WITHOUT DIFFERENTIAL (02/23/2006 6:38 AM CDT) WBC 9.1 4.0 - 10.8 x10E3 INTERFACE SYSTEM RBC 3.87 (L) 4.2 - 5.4 x10E6 INTERFACE SYSTEM HEMOGLOBIN 12.6 12.0 - 16.0 g/dL INTERFACE SYSTEM HEMATOCRIT 36.3 (L) 37 - 47 % INTERFACE SYSTEM MCV 93.7 81.0 - 99.0 fL INTERFACE SYSTEM MCH 32.4 27 - 33 pg INTERFACE SYSTEM MCHC 34.6 32 - 35 g/dL INTERFACE SYSTEM RDW 14.0 12.1 - 16.7 % INTERFACE SYSTEM PLATELETS 163 130 - 400 x10E3 INTERFACE SYSTEM Specimen Performing Organization Address City/State/Zipcode Ph one Number INTERFACE SYSTEM INTERFACE SYSTEM Refer to clinic/hospital department * COMPREHENSIVE METABOLIC PANEL (02/23/2006 6:38 AM CDT) GLUCOSE 93 70 - 110 mg/dl INTERFACE SYSTEM BUN 13.0 7 - 20 mg/dl INTERFACE SYSTEM CREATININE 0.7 0.6 - 1.0 mg/dl INTERFACE SYSTEM BUN/CREAT RATIO 18.6 10 - 20 INTERFACE SYSTEM GFR 102 >90 ml/min INTERFACE SYSTEM GFR - CG 238 >90 ml/min INTERFACE FORMULA SYSTEM SODIUM 141 135 - 145 mmol/L INTERFACE SYSTEM POTASSIUM 4.6 3.3 - 4.8 mmol/L INTERFACE SYSTEM CHLORIDE 108 (H) 98 - 107 mmol/L INTERFACE SYSTEM CO2 25.2 22 - 31 mmol/L INTERFACE SYSTEM ANION GAP 12 4 - 20 INTERFACE SYSTEM CALCIUM 7.8 (L) 8.5 - 10.1 mg/dl INTERFACE SYSTEM ALBUMIN 3.1 (L) 3.4 - 5.0 g/dl INTERFACE SYSTEM TOTAL PROTEIN 6.3 (L) 6.4 - 8.2 g/dl INTERFACE SYSTEM GLOBULIN (CALC) 3.2 INTERFACE SYSTEM ALBUMIN/GLOBULI 1.0 INTERFACE N RATIO SYSTEM BILIRUBIN TOTAL 0.3 <1.1 mg/dl INTERFACE SYSTEM ALKALINE 91 50 - 136 IU/L INTERFACE PHOSPHATASE SYSTEM AST 28 10 - 40 IU/L INTERFACE SYSTEM ALT 61 25 - 70 IU/L INTERFACE SYSTEM Specimen Performing Organization Address [facility] one Number INTERFACE SYSTEM INTERFACE SYSTEM Refer to clinic/hospital department * CBC WITHOUT DIFFERENTIAL (02/22/2006 6:20 AM CDT) WBC 9.6 4.0 - 10.8 x10E3 INTERFACE SYSTEM RBC 3.99 (L) 4.2 - 5.4 x10E6 INTERFACE SYSTEM HEMOGLOBIN 12.9 12.0 - 16.0 g/dL INTERFACE SYSTEM HEMATOCRIT 37.0 37 - 47 % INTERFACE SYSTEM MCV 92.8 81.0 - 99.0 fL INTERFACE SYSTEM MCH 32.4 27 - 33 pg INTERFACE SYSTEM MCHC 35.0 32 - 35 g/dL INTERFACE SYSTEM RDW 14.2 12.1 - 16.7 % INTERFACE SYSTEM PLATELETS 173 130 - 400 x10E3 INTERFACE SYSTEM Specimen Performing Organization Address [facility] one Number INTERFACE SYSTEM INTERFACE SYSTEM Refer to clinic/hospital department * COMPREHENSIVE METABOLIC PANEL (02/22/2006 6:20 AM CDT) GLUCOSE 96 70 - 110 mg/dl INTERFACE SYSTEM BUN 15.0 7 - 20 mg/dl INTERFACE SYSTEM CREATININE 0.7 0.6 - 1.0 mg/dl INTERFACE SYSTEM BUN/CREAT RATIO 21.4 (H) 10 - 20 INTERFACE SYSTEM GFR 102 >90 ml/min INTERFACE SYSTEM GFR - CG 238 >90 ml/min INTERFACE FORMULA SYSTEM SODIUM 142 135 - 145 mmol/L INTERFACE SYSTEM POTASSIUM 3.9 3.3 - 4.8 mmol/L INTERFACE SYSTEM CHLORIDE 103 98 - 107 mmol/L INTERFACE SYSTEM CO2 28.9 22 - 31 mmol/L INTERFACE SYSTEM ANION GAP 14 4 - 20 INTERFACE SYSTEM CALCIUM 7.8 (L) 8.5 - 10.1 mg/dl INTERFACE SYSTEM ALBUMIN 3.2 (L) 3.4 - 5.0 g/dl INTERFACE SYSTEM TOTAL PROTEIN 6.4 6.4 - 8.2 g/dl INTERFACE SYSTEM GLOBULIN (CALC) 3.2 INTERFACE SYSTEM ALBUMIN/GLOBULI 1.0 INTERFACE N RATIO SYSTEM BILIRUBIN TOTAL 0.3 <1.1 mg/dl INTERFACE SYSTEM ALKALINE 87 50 - 136 IU/L INTERFACE PHOSPHATASE SYSTEM AST 31 10 - 40 IU/L INTERFACE SYSTEM ALT 63 25 - 70 IU/L INTERFACE SYSTEM Specimen Performing Organization Address [facility] one Number INTERFACE SYSTEM INTERFACE SYSTEM Refer to clinic/hospital department * POTASSIUM LEVEL (02/21/2006 5:36 AM CDT) POTASSIUM 2.9 (LL)Comment: CALLED 3.3 - 4.8 mmol/L [facility] [place] SYSTEM Specimen Performing Organization Address [facility] one Number INTERFACE SYSTEM INTERFACE SYSTEM Refer to clinic/hospital department * MAGNESIUM LEVEL (02/21/2006 1:25 AM CDT) MAGNESIUM 3.2 (H) 1.8 - 2.4 mg/dl INTERFACE SYSTEM Specimen Performing Organization Address [facility] one Number INTERFACE SYSTEM INTERFACE SYSTEM Refer to clinic/hospital department * PROTIME-INR (02/21/2006 12:00 AM CDT) PROTIME 19.2 (H) 9.0 - 11.0 Sec INTERFACE SYSTEM INR 1.92 (L) 2.0 - 3.0 INTERFACE SYSTEM Specimen Performing Organization Address [facility] one Number INTERFACE SYSTEM INTERFACE SYSTEM Refer to clinic/hospital department * CBC WITH MANUAL DIFFERENTIAL (02/20/2006 11:50 PM CDT) WBC 12.6 (H) 4.0 - 10.8 x10E3 INTERFACE SYSTEM RBC 4.75 4.2 - 5.4 x10E6 INTERFACE SYSTEM HEMOGLOBIN 15.1 12.0 - 16.0 g/dL INTERFACE SYSTEM HEMATOCRIT 44.0 37 - 47 % INTERFACE SYSTEM MCV 92.6 81.0 - 99.0 fL INTERFACE SYSTEM MCH 31.7 27 - 33 pg INTERFACE SYSTEM MCHC 34.2 32 - 35 g/dL INTERFACE SYSTEM RDW 14.3 12.1 - 16.7 % INTERFACE SYSTEM PLATELETS 223 130 - 400 x10E3 INTERFACE SYSTEM MPV 9.1 7.4 - 10.4 fL INTERFACE SYSTEM NEUTROPHILS 70.6 37.0 - 75.0 % INTERFACE SYSTEM MONOCYTES 6.9 0.0 - 12.0 % INTERFACE SYSTEM EOSINOPHILS 0.8 0.0 - 7.0 % INTERFACE SYSTEM BASOPHILS 0.8 0.0 - 2.5 % INTERFACE SYSTEM NEUTROPHIL 8.9 (H) 2.0 - 6.9 x10E3 INTERFACE ABSOLUTE SYSTEM MONOCYTE 0.9 0.0 - 0.9 x10E3 INTERFACE ABSOLUTE SYSTEM EOSINOPHIL 0.1 0.0 - 0.7 x10E3 INTERFACE ABSOLUTE SYSTEM BASOPHILS 0.1 0 - 0.2 x10E3 INTERFACE ABSOLUTE SYSTEM EOSINOPHILS 1 % INTERFACE SYSTEM BANDS 1 % INTERFACE SYSTEM NEUTROPHILS, 67 % INTERFACE SEG SYSTEM LYMPHOCYTES 23 % INTERFACE SYSTEM MONOCYTE 8 % INTERFACE SYSTEM PLATELET EST. Normal INTERFACE SYSTEM WBC ESTIMATE Increased INTERFACE SYSTEM Specimen Performing Organization Address City/[facility] Ph one Number INTERFACE SYSTEM INTERFACE SYSTEM Refer to clinic/hospital department * LIPASE (02/20/2006 11:50 PM CDT) LIPASE 175 114 - 286 U/L INTERFACE SYSTEM Specimen Performing Organization Address City/[facility] Ph one Number INTERFACE SYSTEM INTERFACE SYSTEM Refer to clinic/hospital department * AMYLASE (02/20/2006 11:50 PM CDT) AMYLASE 25 25 - 115 IU/L INTERFACE SYSTEM Specimen Performing Organization Address [facility] Ph one Number INTERFACE SYSTEM INTERFACE SYSTEM Refer to clinic/hospital department * COMPREHENSIVE METABOLIC PANEL (02/20/2006 11:50 PM CDT) GLUCOSE 116 (H) 70 - 110 mg/dl INTERFACE SYSTEM BUN 18.0 7 - 20 mg/dl INTERFACE SYSTEM CREATININE 0.9 0.6 - 1.0 mg/dl INTERFACE SYSTEM BUN/CREAT RATIO 20.0 10 - 20 INTERFACE SYSTEM GFR 77 >90 ml/min INTERFACE SYSTEM SODIUM 136 135 - 145 mmol/L INTERFACE SYSTEM POTASSIUM 2.4 (LL)Comment: CALLED TO 3.3 - 4.8 mmol/L [facility] 0026 SYSTEM CHLORIDE 88 (L) 98 - 107 mmol/L INTERFACE SYSTEM CO2 38.5 (H) 22 - 31 mmol/L INTERFACE SYSTEM ANION GAP 12 4 - 20 INTERFACE SYSTEM CALCIUM 9.0 8.5 - 10.1 mg/dl INTERFACE SYSTEM ALBUMIN 4.1 3.4 - 5.0 g/dl INTERFACE SYSTEM TOTAL PROTEIN 7.6 6.4 - 8.2 g/dl INTERFACE SYSTEM GLOBULIN (CALC) 3.5 INTERFACE SYSTEM ALBUMIN/GLOBULI 1.2 INTERFACE N RATIO SYSTEM BILIRUBIN TOTAL 0.4 <1.1 mg/dl INTERFACE SYSTEM ALKALINE 107 50 - 136 IU/L INTERFACE PHOSPHATASE SYSTEM AST 32 10 - 40 IU/L INTERFACE SYSTEM ALT 67 25 - 70 IU/L INTERFACE SYSTEM Specimen Performing Organization Address City/State/Zipcode Ph one Number INTERFACE SYSTEM INTERFACE SYSTEM Refer to clinic/hospital department documented in this encounter Visit Diagnoses Diagnosis Urinary tract infection, site not speci fied - Primary documented in this encounter
--- OUTSIDE RECORDS SUMMARY | 2019-10-21 18:57 | XMS REPORT | Encounter Summary ---
Author Author [facility] Organization [facility] Address Unknown Phone Unavailable Care Team Providers Care Proposal Development Manager Name Role Phone Phong Stephens MD PCP Unavailable Robby Rajan APRN Unavailable Phong Stephens MD PCP Unavailable Carlos Middleton PCP Lorraine Hathaway MD PCP Mhcf, External Provider PCP Unavailable Encounter Details Care Team Description Date Type Department Maurice Durbin MD [address] [place] [address] Pain in Limb (Primary Dx) 12/29/2005 Outpatient [facility] Historical [facility] [address] [place] [address] Social History Date Tobacco Use Types Packs/Day [...]
--- OUTSIDE RECORDS SUMMARY | 2019-10-21 18:57 | XMS REPORT | Encounter Summary ---
Author Author [facility] Organization [facility] Address Unknown Phone Unavailable Care Team Providers Care Double End Chucking Machine Operator Name Role Phone Phong Stephens MD PCP Unavailable Robby Rajan APRN Unavailable Phong Stephens MD PCP Unavailable Carlos Middleton PCP Lorraine Hathaway MD PCP Mhcf, External Provider PCP Unavailable Encounter Details Care Team Description Date Type Department Molina Valenzuela, DO [address] [place] [address] Encounter for Long-Term (Current) Use of Anticoagulants (Primary Dx) 02/15/2006 Outpatient [facility] [address] [facility] Historical MEDICAID Social History Date [...] Priority Date/Time Associated Diag nosis PROTIME-INR Routine 02/15/2006 2:00 PM CDT documented in this encounter Results * PROTIME-INR (02/15/2006 2:00 PM CDT) PROTIME 38.2 (H) 9.0 - 11.0 Sec INTERFACE SYSTEM INR 3.82 (H) 2.0 - 3.0 INTERFACE SYSTEM Specimen Performing Organization Address City/State/Zipcode Ph one Number INTERFACE SYSTEM INTERFACE SYSTEM Refer to clinic/hospital department documented in this encounter Visit Diagnoses Diagnosis [facility] (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
--- OUTSIDE RECORDS SUMMARY | 2019-10-21 18:58 | XMS REPORT | Encounter Summary ---
Author Author [facility] Organization [facility] Address Unknown Phone Unavailable Care Team Providers Care Human Resources Professional Name Role Phone Phong Stephens MD PCP Unavailable Robby Rajan APRN Unavailable Phong Stephens MD PCP Unavailable Carlos Middleton PCP Lorraine Hathaway MD PCP Mhcf, External Provider PCP Unavailable Encounter Details Care Team Description Date Type Department Jr Yemi Nunn DO [address] [place] [phone] Lumbago (Primary Dx) 09/09/2005 Emergency [facility] Emergency Department [address] [phone] Social History Date Tobacco [...] Priority Date/Time Associated Diag nosis PROTIME-INR Routine 09/10/2005 12:15 AM CDT documented in this encounter Results * PROTIME-INR (09/10/2005 12:15 AM CDT) PROTIME 22.7 (H) 9.0 - 11.0 Sec INTERFACE SYSTEM INR 2.27 2.0 - 3.0 INTERFACE SYSTEM Specimen Performing Organization Address City/State[facility] Ph one Number INTERFACE SYSTEM INTERFACE SYSTEM Refer to clinic/hospital department documented in this encounter Visit Diagnoses Diagnosis Lumbago - Primary documented in this encounter
--- OUTSIDE RECORDS SUMMARY | 2019-10-21 18:58 | XMS REPORT | Encounter Summary ---
Author Author [facility] Organization [facility] Address Unknown Phone Unavailable Care Team Providers Care Filler Shredding Machine Loader Name Role Phone Phong Stephens MD PCP Unavailable Robby Rajan APRN Unavailable Phong Stephens MD PCP Unavailable Carlos Middleton PCP Lorraine Hathaway MD PCP Mhcf, External Provider PCP Unavailable Encounter Details Care Team Description Date Type Department Maurice Durbin MD [address] [place] [phone] Open Wound of Hand except Finger(s) Alonso ne, Complicated (Primary Dx) 10/13/2005 Outpatient [facility] Historical Social History Date Tobacco Use Types [...] encounter Visit Diagnoses Diagnosis Open wound of hand except finger(s) alonso ne, complicated - Primary documented in this encounter
--- OUTSIDE RECORDS SUMMARY | 2019-10-21 18:58 | XMS REPORT | Encounter Summary ---
Author Author [facility] Organization [facility] Address Unknown Phone Unavailable Care Team Providers Care Sweet Pickled Fruit Maker Name Role Phone Phong Stephens MD PCP Unavailable Robby Rajan APRN Unavailable Phong Stephens MD PCP Unavailable Carlos Middleton PCP Lorraine Hathaway MD PCP Mhcf, External Provider PCP Unavailable Encounter Details Care Team Description Date Type Department Maurice Durbin MD [address] [place] [phone] Encounter for Long-Term (Current) Use of Anticoagulants (Primary Dx) 11/02/2005 Outpatient [facility] [address] [facility] Historical MEDICAID Social History Date Tobacco [...] Priority Date/Time Associated Diag nosis PROTIME-INR Routine 11/02/2005 2:48 PM CDT documented in this encounter Results * PROTIME-INR (11/02/2005 2:48 PM CDT) PROTIME 23.6 (H) 9.0 - 11.0 Sec INTERFACE SYSTEM INR 2.36 2.0 - 3.0 INTERFACE SYSTEM Specimen Performing Organization Address City/State/Zipcode Ph one Number INTERFACE SYSTEM INTERFACE SYSTEM Refer to clinic/hospital department documented in this encounter Visit Diagnoses Diagnosis group home (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
--- OUTSIDE RECORDS SUMMARY | 2019-10-21 18:58 | XMS REPORT | Encounter Summary ---
Author Author [facility] Organization [facility] Address Unknown Phone Unavailable Care Team Providers Care Content Editor Name Role Phone Phong Stephens MD PCP Unavailable Robby Rajan APRN Unavailable Phong Stephens MD PCP Unavailable Carlos Middleton PCP Lorraine Hathaway MD PCP Mhcf, External Provider PCP Unavailable Encounter Details Care Team Description Date Type Department Maurice Durbin MD [address] [place] [phone] Open Wound of Hand (Primary Dx) 10/05/2005 Emergency [facility] Emergency Department [address] [phone] Social History Date Tobacco Use [...] wound of hand except finger(s) alonso ne, without mention of complication - Primary documented in this encounter
--- OUTSIDE RECORDS SUMMARY | 2019-10-21 18:58 | XMS REPORT | Encounter Summary ---
Author Author [facility] Organization [facility] Address Unknown Phone Unavailable Care Team Providers Care Bow Tacker Name Role Phone Phong Stephens MD PCP Unavailable Robby Rajan APRN Unavailable Phong Stephens MD PCP Unavailable Carlos Middleton PCP Lorraine Hathaway MD PCP Mhcf, External Provider PCP Unavailable Encounter Details Care Team Description Date Type Department Jr Yemi Nunn, [address] [place] [phone] Contusion of Ankle (Primary Dx) 11/19/2005 Emergency [facility] Emergency Department [address] [phone] Social History Date Tobacco Use [...] this encounter Visit Diagnoses Diagnosis Contusion of ankle - Primary documented in this encounter
--- OUTSIDE RECORDS SUMMARY | 2019-10-21 18:58 | XMS REPORT | Encounter Summary ---
Author Author [facility] Organization [facility] Address Unknown Phone Unavailable Care Team Providers Care Virtualization Architect Name Role Phone Phong Stephens MD PCP Unavailable Robby Rajan APRN Unavailable Phong Stephens MD PCP Unavailable Carlos Middleton PCP Lorraine Hathaway MD PCP Mhcf, External Provider PCP Unavailable Encounter Details Care Team Description Date Type Department Maurice Durbin MD [address] [place] [phone] Other Pulmonary Embolism and Infarction (Primary Dx) 08/31/2005 Outpatient [facility] [address] [place] [address] Social History Date Tobacco Use Types Packs/Day [...]
--- OUTSIDE RECORDS SUMMARY | 2019-10-21 18:58 | XMS REPORT | Encounter Summary ---
Author Author [facility] Organization [facility] Address Unknown Phone Unavailable Care Team Providers Care Technical Analyst Name Role Phone Phong Stephens MD PCP Unavailable Robby Rajan APRN Unavailable Phong Stephens MD PCP Unavailable Carlos Middleton PCP Lorraine Hathaway MD PCP Mhcf, External Provider PCP Unavailable Encounter Details Care Team Description Date Type Department Maurice Durbin MD [address] [place] [phone] Unspecified Site of Ankle Sprain and Str ain (Primary Dx) 11/24/[address] [facility] Consol idated Historical [facility] [address] [place] [address] Social History Date Tobacco Use Types Packs/Day Years Used Never Assessed Sex Assigned at Date Recorded Not on file Industry Job Start Date Occupation Not on file Not on file Not on file Travel End Travel History Travel Start No recent travel history available. documented as of this encounter Plan of Treatment Not on filedocumented as of this encounter Visit Diagnoses Diagnosis Sprain of ankle, unspecified site - Sissy shay documented in this encounter
--- OUTSIDE RECORDS SUMMARY | 2019-10-21 18:58 | XMS REPORT | Encounter Summary ---
Author Author [facility] Organization [facility] Address Unknown Phone Unavailable Care Team Providers Care International Accountant Name Role Phone Phong Stephens MD PCP Unavailable Robby Rajan APRN Unavailable Phong Stephens MD PCP Unavailable Carlos Middleton PCP Lorraine Hathaway MD PCP Mhcf, External Provider PCP Unavailable Encounter Details Care Team Description Date Type Department Kalyan Cruz ARNP [address] [place] [address] Contusion of Finger (Primary Dx) 10/09/2005 Emergency [facility] Emergency Department [address] [phone] Social History Date Tobacco [...] Priority Date/Time Associated Diag nosis PTT Routine 10/09/2005 2:30 AM CDT PROTIME-INR Routine 10/09/2005 2:30 AM CDT CBC WITH MANUAL Routine 10/09/2005 DIFFERENTIAL 2:30 AM CDT documented in this encounter Results * CBC WITH MANUAL DIFFERENTIAL (10/09/2005 2:30 AM CDT) WBC 9.2 4.0 - 10.8 x10E3 INTERFACE SYSTEM RBC 4.64 4.2 - 5.4 x10E6 INTERFACE SYSTEM HEMOGLOBIN 14.8 12.0 - 16.0 g/dL INTERFACE SYSTEM HEMATOCRIT 41.4 37 - 47 % INTERFACE SYSTEM MCV 89.4 81.0 - 99.0 fL INTERFACE SYSTEM MCH 31.8 27 - 33 pg INTERFACE SYSTEM MCHC 35.6 (H) 32 - 35 g/dL INTERFACE SYSTEM RDW 14.5 12.1 - 16.7 % INTERFACE SYSTEM PLATELETS 175 130 - 400 x10E3 INTERFACE SYSTEM MPV 9.4 7.4 - 10.4 fL INTERFACE SYSTEM NEUTROPHILS 62.8 37.0 - 75.0 % INTERFACE SYSTEM MONOCYTES 6.5 0.0 - 12.0 % INTERFACE SYSTEM EOSINOPHILS 1.4 0.0 - 7.0 % INTERFACE SYSTEM BASOPHILS 1.7 0.0 - 2.5 % INTERFACE SYSTEM NEUTROPHIL 5.8 2.0 - 6.9 x10E3 INTERFACE ABSOLUTE SYSTEM MONOCYTE 0.6 0.0 - 0.9 x10E3 INTERFACE ABSOLUTE SYSTEM EOSINOPHIL 0.1 0.0 - 0.7 x10E3 INTERFACE ABSOLUTE SYSTEM BASOPHILS 0.2 0 - 0.2 x10E3 INTERFACE ABSOLUTE SYSTEM BANDS 4 % INTERFACE SYSTEM NEUTROPHILS, 61 % INTERFACE SEG SYSTEM LYMPHOCYTES 29 % INTERFACE SYSTEM MONOCYTE 6 % INTERFACE SYSTEM PLATELET EST. Normal INTERFACE SYSTEM WBC ESTIMATE Normal INTERFACE SYSTEM Specimen Performing Organization Address City/[facility] Ph one Number INTERFACE SYSTEM INTERFACE SYSTEM Refer to clinic/hospital department * PTT (10/09/2005 2:30 AM CDT) PTT 69 (H) 23 - 31 Sec INTERFACE SYSTEM Specimen Performing Organization Address [facility] Ph one Number INTERFACE SYSTEM INTERFACE SYSTEM Refer to clinic/hospital department * PROTIME-INR (10/09/2005 2:30 AM CDT) PROTIME 35.9 (H) 9.0 - 11.0 Sec INTERFACE SYSTEM INR 3.59 (H) 2.0 - 3.0 INTERFACE SYSTEM Specimen Performing Organization Address [facility] Ph one Number INTERFACE SYSTEM INTERFACE SYSTEM Refer to clinic/hospital department documented in this encounter Visit Diagnoses Diagnosis Contusion of finger - Primary documented in this encounter
--- OUTSIDE RECORDS SUMMARY | 2019-10-21 18:58 | XMS REPORT | Encounter Summary ---
Author Author [facility] Organization [facility] Address Unknown Phone Unavailable Care Team Providers Care Office Machines Wirer Name Role Phone Phong Stephens MD PCP Unavailable Robby Rajan APRN Unavailable Phong Stephens MD PCP Unavailable Carlos Middleton PCP Lorraine Hathaway MD PCP [facility], External Provider PCP Unavailable Encounter Details Care Team Description Date Type Department Maurice Durbin MD [address] [place] [phone] Other Pulmonary Embolism and Infarction (Primary Dx) 08/17/2005 Outpatient [facility] [address] ICA [...] Priority Date/Time Associated Diag nosis PROTIME-INR Routine 08/17/2005 12:14 PM CLOTH EXAMINER MACHINE documented in this encounter Results * PROTIME-INR (08/17/2005 12:14 PM CLOTH EXAMINER MACHINE) PROTIME 16.9 (H) 9.0 - 11.0 Sec INTERFACE SYSTEM INR 1.69 (L) 2.0 - 3.0 INTERFACE SYSTEM Specimen Narrative Performed At Preop Test? N INTERFACE SYSTEM COMMENT: COUMADI THERAPY Performing Organization Address [place] [place] INTERFACE SYSTEM INTERFACE SYSTEM Refer to clinic/hospital department documented in this encounter Visit Diagnoses Diagnosis Other pulmonary embolism and infarction - Primary documented in this encounter
--- OUTSIDE RECORDS SUMMARY | 2019-10-21 18:58 | XMS REPORT | Encounter Summary ---
Author Author [facility] Organization [facility] Address Unknown Phone Unavailable Care Team Providers Care Food Production Manager Name Role Phone Phong Stephens MD PCP Unavailable Robby Rajan APRN Unavailable Phong Stephens MD PCP Unavailable Carlos Middleton PCP Lorraine Hathaway MD PCP M[facility]cf, External Provider PCP Unavailable Encounter Details Care Team Description Date Type Department Maurice Durbin MD [address] [place] [address] Cervicobrachial Syndrome (Primary Dx) 11/02/2005 Outpatient [facility] Cons[facility] id[facility] [address] [place] [address] Social History Date Tobacco Use Types Packs/Day Years Used Never Assessed Sex Assigned at Date Recorded Not on file Industry Job Start Date Occupation Not on file Not on file Not on file Travel End Travel History Travel Start No recent travel history available. documented as of this encounter Plan of Treatment Not on filedocumented as of this encounter Visit Diagnoses Diagnosis Cervicobrachial syndrome - Primary Cervicobrachial syndrome (diffuse) documented in this encounter
--- OUTSIDE RECORDS SUMMARY | 2019-10-21 18:58 | XMS REPORT | Encounter Summary ---
Author Author [facility] Organization [facility] Address Unknown Phone Unavailable Care Team Providers Care Shingle Sawyer Name Role Phone Phong Stephens MD PCP Unavailable Robby Rajan APRN Unavailable Phong Stephens MD PCP Unavailable Carlos Middleton PCP Lorraine Hathaway MD PCP [facility]cf, External Provider PCP Unavailable Encounter Details Care Team Description Date Type Department Maurice Durbin MD [address] [place] [place] [phone] Open Wound of Hand except Finger(s) Alonso ne, Complicated (Primary Dx) 10/17/2005 Outpatient [facility] Historical Social [...]
--- OUTSIDE RECORDS SUMMARY | 2019-10-21 18:58 | XMS REPORT | Encounter Summary ---
Author Author [facility] Organization [facility] Address Unknown Phone Unavailable Care Team Providers Care Buffing And Polishing Wheel Repairer Name Role Phone Phong Stephens MD PCP Unavailable Robby Rajan APRN Unavailable Phong Stephens MD PCP Unavailable Carlos Middleton PCP Lorraine Hathaway MD PCP [facility]cf, External Provider PCP Unavailable Encounter Details Care Team Description Date Type Department Maurice Durbin MD [address] [place] [phone] DM w/o Complication Type II (Primary Dx) 12/06/2005 Outpatient [facility] [address] [place] Historical MEDICAID Social History Date Tobacco [...] Priority Date/Time Associated Diag nosis PROTIME-INR Routine 12/06/2005 10:20 AM CDT HEMOGLOBIN A1C Routine 12/06/2005 9:00 AM CDT LIPID PANEL Routine 12/06/2005 9:00 AM CDT COMPREHENSIVE METABOLIC Routine 12/06/2005 PANEL 9:00 AM CDT documented in this encounter Results * PROTIME-INR (12/06/2005 10:20 AM CDT) PROTIME 29.5 (H) 9.0 - 11.0 Sec INTERFACE SYSTEM INR 2.95 2.0 - 3.0 INTERFACE SYSTEM Specimen Narrative Performed At Preop Test? N INTERFACE SYSTEM COMMENT: ANTICOL THERAPY Performing Organization Address [facility] [place] INTERFACE SYSTEM INTERFACE SYSTEM Refer to clinic/hospital department * HEMOGLOBIN A1C (12/06/2005 9:00 AM CDT) HEMOGLOBIN A1C 5.6 0 - 6.0 % INTERFACE SYSTEM GLUCOSE, MEAN 111 mg/dl INTERFACE BLOOD SYSTEM Specimen Narrative Performed At 14 HR FAST INTERFACE SYSTEM Performing Organization Address [facility] [place] INTERFACE SYSTEM INTERFACE SYSTEM Refer to clinic/hospital department * LIPID PANEL (12/06/2005 9:00 AM CDT) CHOLESTEROL 224 (H) 140 - 200 mg/dl INTERFACE SYSTEM TRIGLYCERIDE 447 (H) 0 - 199 mg/dl INTERFACE Comment: SYSTEM REFERENCE RANGE - TRIGLYCERIDES NORMAL LESS THAN 150 mg/dl BORDERLINE HIGH 150 - 199 mg/dl HIGH 200 - 499 mg/dl VERY HIGH GREATER THAN OR = 500 mg/dl HDL 31 29 - 89 mg/dl INTERFACE SYSTEM LDL 116 <130 mg/dl INTERFACE CHOLESTEROL, Comment: SYSTEM DIRECT [...] 0-1 risk factor Specimen Narrative Performed At 14 HR FAST INTERFACE SYSTEM Performing Organization Address City/State/[facility] Ph one Number INTERFACE SYSTEM INTERFACE SYSTEM Refer to clinic/hospital department * COMPREHENSIVE METABOLIC PANEL (12/06/2005 9:00 AM CDT) GLUCOSE 105 70 - 110 mg/dl INTERFACE SYSTEM BUN 15.0 7 - 20 mg/dl INTERFACE SYSTEM CREATININE 0.7 0.6 - 1.0 mg/dl INTERFACE SYSTEM BUN/CREAT RATIO 21.4 (H) 10 - 20 INTERFACE SYSTEM GFR 102 >90 ml/min INTERFACE SYSTEM SODIUM 135 135 - 145 mmol/L INTERFACE SYSTEM POTASSIUM 4.3 3.3 - 4.8 mmol/L INTERFACE SYSTEM CHLORIDE 100 98 - 107 mmol/L INTERFACE SYSTEM CO2 22.3 22 - 31 mmol/L INTERFACE SYSTEM ANION GAP 17 4 - 20 INTERFACE SYSTEM CALCIUM 9.1 8.5 - 10.1 mg/dl INTERFACE SYSTEM ALBUMIN 3.8 3.4 - 5.0 g/dl INTERFACE SYSTEM TOTAL PROTEIN 7.2 6.4 - 8.2 g/dl INTERFACE SYSTEM GLOBULIN (CALC) 3.4 INTERFACE SYSTEM ALBUMIN/GLOBULI 1.1 INTERFACE N RATIO SYSTEM BILIRUBIN TOTAL 0.3 <1.1 mg/dl INTERFACE SYSTEM ALKALINE 109 50 - 136 IU/L INTERFACE PHOSPHATASE SYSTEM AST 26 10 - 40 IU/L INTERFACE SYSTEM ALT 49 25 - 70 IU/L INTERFACE SYSTEM Specimen Narrative Performed At 14 HR FAST INTERFACE SYSTEM Performing Organization Address City/State/Zipcode Ph one Number INTERFACE SYSTEM INTERFACE SYSTEM Refer to clinic/hospital department documented in this encounter Visit Diagnoses Diagnosis Type II or unspecified type diabetes me llitus without mention of complication, not stated as uncontrolled - Primary documented in this encounter
--- OUTSIDE RECORDS SUMMARY | 2019-10-21 18:58 | XMS REPORT | Encounter Summary ---
Author Author [facility] Organization [facility] Address Unknown Phone Unavailable Care Team Providers Care Central Office Operator Name Role Phone Phong Stephens MD PCP Unavailable Robyb Rajan APRN Unavailable Phong Stephens MD PCP Unavailable Carlos Middleton PCP Lorraine Hathaway MD PCP Mhcf, External Provider PCP Unavailable Encounter Details Care Team Description Date Type Department Maurice Durbin MD [address] [place] [phone] Other Pulmonary Embolism and Infarction (Primary Dx) 08/17/2005 Outpatient [facility] Consol idated [facility] [address] [place] [address] Social History Date Tobacco Use Types Packs/Day [...]
--- OUTSIDE RECORDS SUMMARY | 2019-10-21 18:58 | XMS REPORT | Encounter Summary ---
Author Author [facility] Organization [facility] Address Unknown Phone Unavailable Care Team Providers Care Director Employee Safety And Health Name Role Phone Phong Stephens MD PCP Unavailable Robby Rajan APRN Unavailable Phong Stephens MD PCP Unavailable Carlos Middleton PCP Lorraine Hathaway MD PCP Mhcf, External Provider PCP Unavailable Encounter Details Care Team Description Date Type Department Maurice Durbin MD [address] [place] [phone] Open Wound of Hand except Finger(s) Alonso ne, Complicated (Primary Dx) 10/24/2005 Outpatient [facility] Historical Social [...]
--- OUTSIDE RECORDS SUMMARY | 2019-10-21 18:58 | XMS REPORT | Encounter Summary ---
Author Author [facility] Organization [facility] Address Unknown Phone Unavailable Care Team Providers Care Home Day Care Provider Name Role Phone Phong Stephens MD PCP Unavailable Robby Rajan APRN Unavailable Phong Stephens MD PCP Unavailable Carlos Middleton PCP Lorraine Hathaway MD PCP Mhcf, External Provider PCP Unavailable Encounter Details Care Team Description Date Type Department Kalyan Cruz ARNP [address] [place] [address] Sciatica (Primary Dx) 08/14/2005 Emergency [facility] Emergency Department [address] [phone] Social History Date Tobacco [...] as of this encounter Visit Diagnoses Diagnosis Sciatica - Primary documented in this encounter
--- OUTSIDE RECORDS SUMMARY | 2019-10-21 18:58 | XMS REPORT | Encounter Summary ---
Author Author [facility] Organization [facility] Address Unknown Phone Unavailable Care Team Providers Care Senior Business Intelligence Analyst Name Role Phone Phong Stephens MD PCP Unavailable Robby Rajan APRN Unavailable Phong Stephens MD PCP Unavailable Carlos Middleton PCP Lorraine Hathaway MD PCP Mhcf, External Provider PCP Unavailable Encounter Details Care Team Description Date Type Department Maurice Durbin MD [address] [place] [address] Contusion of Finger (Primary Dx) 10/12/2005 Outpatient [facility] Consol idated Historical [facility] [address] [place] [address] Social History Date Tobacco Use Types Packs/Day [...]
--- OUTSIDE RECORDS SUMMARY | 2019-10-21 18:58 | XMS REPORT | Encounter Summary ---
Author Author [facility] Organization [facility] Address Unknown Phone Unavailable Care Team Providers Care Car Dropper Name Role Phone Phong Stephens MD PCP Unavailable Robby Rajan APRN Unavailable Phong Stephens MD PCP Unavailable Carlos Middleton PCP Lorraine Hathaway MD PCP Mhcf, External Provider PCP Unavailable Encounter Details Care Team Description Date Type Department Maurice Durbin MD [address] [place] [address] Contusion of Finger (Primary Dx) 10/09/2005 Outpatient [facility] Consol idated Historical [facility] [address] [place] [address] Social History Date Tobacco Use Types Packs/Day [...]
--- OUTSIDE RECORDS SUMMARY | 2019-10-21 18:58 | XMS REPORT | Encounter Summary ---
Author Author [facility] Organization [facility] Address Unknown Phone Unavailable Care Team Providers Care Technical Product Manager Name Role Phone Phong Stephens MD PCP Unavailable Robby Rajan APRN Unavailable Phong Stephens MD PCP Unavailable Carlos Middleton PCP Lorraine Hathaway MD PCP Mhcf, External Provider PCP Unavailable Encounter Details Care Team Description Date Type Department Maurice Durbin MD [address] [place] [address] Pain in Limb (Primary Dx) 12/11/2005 Outpatient [facility] Consol idated Historical [facility] [address] [place] [address] Social History Date Tobacco Use Types Packs/Day [...]
--- OUTSIDE RECORDS SUMMARY | 2019-10-21 18:58 | XMS REPORT | Encounter Summary ---
Author Author [facility] Organization [facility] Address Unknown Phone Unavailable Care Team Providers Care Grain Manager Name Role Phone Phong Stephens MD PCP Unavailable Robby Rajan APRN Unavailable Phong Stephens MD PCP Unavailable Carlos Middleton PCP Lorraine Hathaway MD PCP Mhcf, External Provider PCP Unavailable Encounter Details Care Team Description Date Type Department Kalyan Cruz ARNP [address] [place] [address] Sciatica (Primary Dx) 08/27/2005 Emergency [facility] Emergency Department [address] [phone] Social History Date Tobacco [...]
--- OUTSIDE RECORDS SUMMARY | 2019-10-21 18:58 | XMS REPORT | Encounter Summary ---
Author Author [facility] Organization [facility] Address Unknown Phone Unavailable Care Team Providers Care Event Organizer Name Role Phone Phong Stephens MD PCP Unavailable Robby Rajan APRN Unavailable Phong Stephens MD PCP Unavailable Carlos Middleton PCP Lorraine Hathaway MD PCP Mhcf, External Provider PCP Unavailable Encounter Details Care Team Description Date Type Department Maurice Durbin MD [address] [place] [address] Mononeuritis of Unspecified Site (Primar y Dx) 10/02/2005 Outpatient [facility] Consol idated Historical [facility] [address] [place] [address] Social History Date Tobacco Use Types Packs/Day [...]
--- OUTSIDE RECORDS SUMMARY | 2019-10-21 18:58 | XMS REPORT | Encounter Summary ---
Author Author [facility] Organization [facility] Address Unknown Phone Unavailable Care Team Providers Care Power Line Lineman Name Role Phone Phong Stephens MD PCP Unavailable Robby Rajan APRN Unavailable Phong Stephens MD PCP Unavailable Carlos Middleton PCP Lorraine Hathaway MD PCP Mhcf, External Provider PCP Unavailable Encounter Details Care Team Description Date Type Department Lavell Lance MD Pain in Limb (Primary Dx) 09/18/[address] [facility] Emergency Department [address] [phone] Social History Date Tobacco Use [...]
--- OUTSIDE RECORDS SUMMARY | 2019-10-21 18:58 | XMS REPORT | Encounter Summary ---
Author Author [facility] Organization [facility] Address Unknown Phone Unavailable Care Team Providers Care Grocery Store Clerk Name Role Phone Phong Stephens MD PCP Unavailable Robby Rajan APRN Unavailable Phong Stephens MD PCP Unavailable Carlos Middleton PCP Lorraine Hathaway MD PCP Mhcf, External Provider PCP Unavailable Encounter Details Care Team Description Date Type Department Maurice Durbin MD [address] [place] [address] Shortness of Breath (Primary Dx) 08/21/2005 [facility]patient [facility] Historical [address] [phone] Social History Date Tobacco [...]
--- OUTSIDE RECORDS SUMMARY | 2019-10-21 18:58 | XMS REPORT | Encounter Summary ---
Author Author [facility] Organization [facility] Address Unknown Phone Unavailable Care Team Providers Care Communication Instructor Name Role Phone Phong Stephens MD PCP Unavailable Robby Rajan APRN Unavailable Phong Stephens MD PCP Unavailable Carlos Middleton PCP Lorraine Hathaway MD PCP Mhcf, External Provider PCP Unavailable Encounter Details Care Team Description Date Type Department Maurice Durbin MD [address] [place] [phone] Other Pulmonary Embolism and Infarction (Primary Dx) 08/31/2005 Outpatient [facility] [address] ICA [...] Priority Date/Time Associated Diag nosis PROTIME-INR Routine 08/31/2005 11:15 AM COMMERCIAL COLLECTIONS SPECIALIST documented in this encounter Results * PROTIME-INR (08/31/2005 11:15 AM COMMERCIAL COLLECTIONS SPECIALIST) PROTIME 19.6 (H) 9.0 - 11.0 Sec INTERFACE SYSTEM INR 1.96 (L) 2.0 - 3.0 INTERFACE SYSTEM Specimen Narrative Performed At COMMENT: COUMADIN THERAPY INTERFACE SYSTEM Performing Organization Address City/State/Zipcode Ph one Number INTERFACE SYSTEM INTERFACE SYSTEM Refer to clinic/hospital department documented in this encounter Visit Diagnoses Diagnosis Other pulmonary embolism and infarction - Primary documented in this encounter
--- OUTSIDE RECORDS SUMMARY | 2019-10-21 18:58 | XMS REPORT | Encounter Summary ---
Author Author [facility] Organization [facility] Address Unknown Phone Unavailable Care Team Providers Care Supervisor Heat Treating Name Role Phone Phong Stephens MD PCP Unavailable Robby Rajan APRN Unavailable Phong Stephens MD PCP Unavailable Carlos Middleton PCP Lorraine Hathaway MD PCP Mhcf, External Provider PCP Unavailable Encounter Details Care Team Description Date Type Department Maurice Durbin MD [address] [place] [address] DM w/o Complication Type II (Primary Dx) 12/06/2005 Outpatient [facility] Consol idated Historical [facility] [address] [place] [address] Social History Date Tobacco Use Types Packs/Day [...]
--- OUTSIDE RECORDS SUMMARY | 2019-10-21 18:58 | XMS REPORT | Encounter Summary ---
Author Author [facility] Organization [facility] Address Unknown Phone Unavailable Care Team Providers Care Artists' Booking Representative Name Role Phone Phong Stephens MD PCP Unavailable Robby Rajan APRN Unavailable Phong Stephens MD PCP Unavailable Carlos Middleton PCP Lorraine Hathaway MD PCP Mhcf, External Provider PCP Unavailable Encounter Details Care Team Description Date Type Department Reggie Ramirez MD NO ADDRESS ON FILE Cellulitis and Abscess of Unspecified Si te (Primary Dx) 10/17/2005 Outpatient [facility] Consol idated [address] [address] Social History Date Tobacco Use Types Packs/Day [...] Visit Diagnoses Diagnosis Cellulitis and abscess of unspecified s ite - Primary documented in this encounter
--- OUTSIDE RECORDS SUMMARY | 2019-10-21 18:58 | XMS REPORT | Encounter Summary ---
Author Author [facility] Organization [facility] Address Unknown Phone Unavailable Care Team Providers Care Bean Snapper Name Role Phone Phong Stephens MD PCP Unavailable Robby Rajan APRN Unavailable Phong Stephens MD PCP Unavailable Carlos Middleton PCP Lorraine Hathaway MD PCP Mhcf, External Provider PCP Unavailable Encounter Details Care Team Description Date Type Department Lavell Lance MD Headache (Primary Dx) 09/29/2005 Emergency [facility] Emergency Department [address] [phone] Social History Date Tobacco [...]
--- OUTSIDE RECORDS SUMMARY | 2019-10-21 18:59 | XMS REPORT | Encounter Summary ---
Author Author [facility] Organization [facility] Address Unknown Phone Unavailable Care Team Providers Care Wrapper Operator Name Role Phone Phong Stephens MD PCP Unavailable Robby Rajan APRN Unavailable Phong Stephens MD PCP Unavailable Carlos Middleton PCP Lorraine Hathaway MD PCP Mhcf, External Provider PCP Unavailable Encounter Details Care Team Description Date Type Department Maurice Durbin MD [address] [place] [address] CHEST PAIN NOS (Primary Dx) 07/13/2005 Outpatient [facility] [address] [place] [address] Social History Date Tobacco Use [...] of this encounter Visit Diagnoses Diagnosis Chest pain, unspecified - Primary documented in this encounter
--- OUTSIDE RECORDS SUMMARY | 2019-10-21 18:59 | XMS REPORT | Encounter Summary ---
Author Author [facility] Organization [facility] Address Unknown Phone Unavailable Care Team Providers Care Supervising Law Enforcement Analyst Name Role Phone Phong Stephens MD PCP Unavailable Robby Rajan APRN Unavailable Phong Stephens MD PCP Unavailable Carlos Middleton PCP Lorraine Hathaway MD PCP Mhcf, External Provider PCP Unavailable Encounter Details Care Team Description Date Type Department Homar Christian MD [facility] [place] [address] URETHRAL STRICTURE NOS (Primary Dx) 05/22/2005 Outpatient [facility] OP SURG Historical Social History [...] Priority Date/Time Associated Diag nosis PROTIME-INR Routine 05/22/2005 9:00 AM CORPORATE COMPLIANCE OFFICER documented in this encounter Results * PROTIME-INR (05/22/2005 9:00 AM CORPORATE COMPLIANCE OFFICER) PROTIME 9.6 9.3 - 11.3 Sec INTERFACE SYSTEM INR 0.95 (L) 2.0 - 3.0 INTERFACE SYSTEM Specimen Narrative Performed At Preop Test? Y INTERFACE SYSTEM COMMENT: CUBICLE #7 Performing Organization Address City/State/Zipcode Ph one Number INTERFACE SYSTEM INTERFACE SYSTEM Refer to clinic/hospital department documented in this encounter Visit Diagnoses Diagnosis Urethral stricture unspecified - Primar y Urethral stricture, unspecified documented in this encounter
--- OUTSIDE RECORDS SUMMARY | 2019-10-21 18:59 | XMS REPORT | Encounter Summary ---
Author Author [facility] Organization [facility] Address Unknown Phone Unavailable Care Team Providers Care Adult Nurse Practitioner Name Role Phone Phong Stephens MD PCP Unavailable Robby Rajan APRN Unavailable Phong Stephens MD PCP Unavailable Carlos Middleton PCP Lorraine Hathaway MD PCP Mhcf, External Provider PCP Unavailable Encounter Details Care Team Description Date Type Department Maurice Durbin MD [address] [place] [phone] AFTERCARE REAMING MACHINE OPERATOR FOR PLASTIC ANTICOAG USE (Primar y Dx) 03/20/2005 Outpatient [facility] [address] ICARE [...] Priority Date/Time Associated Diag nosis PROTIME-INR Routine 03/20/2005 9:22 AM CDT documented in this encounter Results * PROTIME-INR (03/20/2005 9:22 AM CDT) PROTIME 10.4 9.3 - 11.3 Sec INTERFACE SYSTEM INR 1.03 (L) 2.0 - 3.0 INTERFACE SYSTEM Specimen Performing Organization Address City/State/Zipcode Ph one Number INTERFACE SYSTEM INTERFACE SYSTEM Refer to clinic/hospital department documented in this encounter Visit Diagnoses Diagnosis prison (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
--- OUTSIDE RECORDS SUMMARY | 2019-10-21 18:59 | XMS REPORT | Encounter Summary ---
Author Author [facility] Organization [facility] Address Unknown Phone Unavailable Care Team Providers Care Deployment Technician Name Role Phone Phong Stephens MD PCP Unavailable Robby Rajan APRN Unavailable Phong Stephens MD PCP Unavailable Carlos Middleton PCP Lorraine Hathaway MD PCP Mhcf, External Provider PCP Unavailable Encounter Details Care Team Description Date Type Department Maurice Durbin MD [address] [place] [phone] URGE INCONTINENCE (Primary Dx) 05/03/2005 Outpatient [facility] [address] ICA [...] as of this encounter Visit Diagnoses Diagnosis Urge incontinence - Primary documented in this encounter
--- OUTSIDE RECORDS SUMMARY | 2019-10-21 18:59 | XMS REPORT | Encounter Summary ---
Author Author [facility] Organization [facility] Address Unknown Phone Unavailable Care Team Providers Care Anesthesia Director Name Role Phone Phong Stephens MD PCP Unavailable Robby Rajan APRN Unavailable Phong Stephens MD PCP Unavailable Carlos Middleton PCP Lorraine Hathaway MD PCP Mhcf, External Provider PCP Unavailable Encounter Details Care Team Description Date Type Department Maurice Durbin MD [address] [place] [address] MIGRAINE NOS W/O MENTN INTRACTABLE (Prim kierra Dx) 04/17/2005 Outpatient [facility] Consol idated Historical [facility] [address] [place] [address] Social History Date Tobacco Use Types Packs/Day [...]
--- OUTSIDE RECORDS SUMMARY | 2019-10-21 18:59 | XMS REPORT | Encounter Summary ---
Author Author [facility] Organization [facility] Address Unknown Phone Unavailable Care Team Providers Care Fund Accountant Name Role Phone Phong Stephens MD PCP Unavailable Robby Rajan APRN Unavailable Phong Stephens MD PCP Unavailable Carlos Middleton PCP Lorraine Hathaway MD PCP Mhcf, External Provider PCP Unavailable Encounter Details Care Team Description Date Type Department Kalyan Cruz ARNP [address] [place] [address] HEADACHE (Primary Dx) 06/21/2005 Emergency [facility] Emergency Department [address] [phone] Social History Date Tobacco [...]
--- OUTSIDE RECORDS SUMMARY | 2019-10-21 18:59 | XMS REPORT | Encounter Summary ---
Author Author [facility] Organization [facility] Address Unknown Phone Unavailable Care Team Providers Care Graphic Design Intern Name Role Phone Phong Stephens MD PCP Unavailable Robby Rajan APRN Unavailable Phong Stephens MD PCP Unavailable Carlos Middleton PCP Lorraine Hathaway MD PCP Mhcf, External Provider PCP Unavailable Encounter Details Care Team Description Date Type Department Kalyan Cruz ARNP [address] [place] [address] SPRAIN OF BACK NOS (Primary Dx) 03/24/2005 Emergency [facility] Emergency Department [address] [phone] Social History Date Tobacco Use [...] Priority Date/Time Associated Diag nosis PROTIME-INR Routine 03/24/2005 10:50 PM CDT documented in this encounter Results * PROTIME-INR (03/24/2005 10:50 PM CDT) PROTIME 18.9 (H) 9.3 - 11.3 Sec INTERFACE SYSTEM INR 1.89 (L) 2.0 - 3.0 INTERFACE SYSTEM Specimen Narrative Performed At Preop Test? N INTERFACE SYSTEM COMMENT: HX OF DVT Performing Organization Address City/State/Zipcode Ph one Number INTERFACE SYSTEM INTERFACE SYSTEM Refer to clinic/hospital department documented in this encounter Visit Diagnoses Diagnosis Sprain of unspecified site of back - Pr imary documented in this encounter
--- OUTSIDE RECORDS SUMMARY | 2019-10-21 18:59 | XMS REPORT | Encounter Summary ---
Author Author [facility] Organization [facility] Address Unknown Phone Unavailable Care Team Providers Care Mobile Application Engineer Name Role Phone Phong Stephens MD PCP Unavailable Robby Rajan APRN Unavailable Phong Stephens MD PCP Unavailable Carlos Middleton PCP Lorraine Hathaway MD PCP Mhcf, External Provider PCP Unavailable Encounter Details Care Team Description Date Type Department Maurice Durbin MD [address] [place] [address] MALAISE AND FATIGUE NEC (Primary Dx) 07/10/2005 Outpatient [facility] Consol idated Historical [facility] [address] [place] [address] Social History Date Tobacco Use Types Packs/Day [...]
--- OUTSIDE RECORDS SUMMARY | 2019-10-21 18:59 | XMS REPORT | Encounter Summary ---
Author Author [facility] Organization [facility] Address Unknown Phone Unavailable Care Team Providers Care Verifier Operator Name Role Phone Phong Stephens MD PCP Unavailable Robby Rajan APRN Unavailable Phong Stephens MD PCP Unavailable Carlos Middleton PCP Lorraine Hathaway MD PCP Mhcf, External Provider PCP Unavailable Encounter Details Care Team Description Date Type Department Lavell Lance MD MONONEURITIS ARM NOS (Primary Dx) 04/10/2005 Emergency [facility] Emergency Department [address] [address] Social History Date Tobacco [...] this encounter Visit Diagnoses Diagnosis Mononeuritis of upper limb, unspecified - Primary documented in this encounter
--- OUTSIDE RECORDS SUMMARY | 2019-10-21 18:59 | XMS REPORT | Encounter Summary ---
Author Author [facility] Organization [facility] Address Unknown Phone Unavailable Care Team Providers Care Export Freight Manager Name Role Phone Phong Stephens MD PCP Unavailable Robby Rajan APRN Unavailable Phong Stephens MD PCP Unavailable Carlos Middleton PCP Lorraine Hathaway MD PCP Mhcf, External Provider PCP Unavailable Encounter Details Care Team Description Date Type Department Maurice Durbin MD [address] [place] [address] URGE INCONTINENCE (Primary Dx) 05/03/2005 Outpatient [facility] Consol idated Historical [facility] [address] [place] [address] Social History Date Tobacco Use Types Packs/Day [...]
--- OUTSIDE RECORDS SUMMARY | 2019-10-21 18:59 | XMS REPORT | Encounter Summary ---
Author Author [facility] Organization [facility] Address Unknown Phone Unavailable Care Team Providers Care Outcomes Analyst Name Role Phone Phong Stephens MD PCP Unavailable Robby Rajan APRN Unavailable Phong Stephens MD PCP Unavailable Carlos Middleton PCP Lorraine Hathaway MD PCP Mhcf, External Provider PCP Unavailable Encounter Details Care Team Description Date Type Department Lavell Lance MD Erythematous cond NEC (Primary Dx) 04/24/2005 Emergency [facility] Emergency Department [address] [address] Social History Date Tobacco Use [...] as of this encounter Visit Diagnoses Diagnosis Erythematous cond NEC - Primary Other specified erythematous condition documented in this encounter
--- OUTSIDE RECORDS SUMMARY | 2019-10-21 18:59 | XMS REPORT | Encounter Summary ---
Author Author [facility] Organization [facility] Address Unknown Phone Unavailable Care Team Providers Care Design Sales Consultant Name Role Phone Phong Stephens MD PCP Unavailable Robby Rajan APRN Unavailable Phong Stephens MD PCP Unavailable Carlos Middleton PCP Lorraine Hathaway MD PCP Mhcf, External Provider PCP Unavailable Encounter Details Care Team Description Date Type Department Maurice Durbin MD [address] [place] [phone] PULM EMBOLISM/INFARCT NOS (Primary Dx) 07/05/2005 Outpatient [facility] [address] [facility] [...] Procedure Name Priority Date/Time Associated Diag nosis AST Routine 07/05/2005 8:35 AM MANUFACTURING ENGINEERING DIRECTOR HEMOGLOBIN A1C Routine 07/05/2005 8:35 AM MANUFACTURING ENGINEERING DIRECTOR LIPID PANEL Routine 07/05/2005 8:35 AM MANUFACTURING ENGINEERING DIRECTOR BASIC METABOLIC PANEL Routine 07/05/2005 8:35 AM MANUFACTURING ENGINEERING DIRECTOR documented in this encounter Results * HEMOGLOBIN A1C (07/05/2005 8:35 AM MANUFACTURING ENGINEERING DIRECTOR) HEMOGLOBIN A1C 5.4 0 - 6.0 % INTERFACE SYSTEM GLUCOSE, MEAN 105 mg/dl INTERFACE BLOOD SYSTEM Specimen Narrative Performed At FASTING INTERFACE SYSTEM Performing Organization Address City/[facility] Ph one Number INTERFACE SYSTEM INTERFACE SYSTEM Refer to clinic/hospital department * AST (07/05/2005 8:35 AM MANUFACTURING ENGINEERING DIRECTOR) AST 20 10 - 40 IU/L INTERFACE SYSTEM Specimen Narrative Performed At FASTING INTERFACE SYSTEM Performing Organization Address City/[facility] Ph one Number INTERFACE SYSTEM INTERFACE SYSTEM Refer to clinic/hospital department * LIPID PANEL (07/05/2005 8:35 AM MANUFACTURING ENGINEERING DIRECTOR) CHOLESTEROL 171 140 - 200 mg/dl INTERFACE SYSTEM TRIGLYCERIDE 224 (H) 0 - 199 mg/dl INTERFACE Comment: SYSTEM REFERENCE RANGE - TRIGLYCERIDES NORMAL LESS THAN 150 mg/dl BORDERLINE HIGH 150 - 199 mg/dl HIGH 200 - 499 mg/dl VERY HIGH GREATER THAN OR = 500 mg/dl HDL 27 (L) 29 - 89 mg/dl INTERFACE SYSTEM LDL [...] At FASTING INTERFACE SYSTEM Performing Organization Address [facility] one Number INTERFACE SYSTEM INTERFACE SYSTEM Refer to clinic/hospital department * BASIC METABOLIC PANEL (07/05/2005 8:35 AM MANUFACTURING ENGINEERING DIRECTOR) GLUCOSE 97 70 - 110 mg/dl INTERFACE SYSTEM BUN 10.0 7 - 20 mg/dl INTERFACE SYSTEM CREATININE 0.7 0.6 - 1.0 mg/dl INTERFACE SYSTEM BUN/CREAT RATIO 14.3 10 - 20 INTERFACE SYSTEM SODIUM 143 135 - 145 mmol/L INTERFACE SYSTEM POTASSIUM 4.3 3.5 - 5.1 mmol/L INTERFACE SYSTEM CHLORIDE 108 (H) 98 - 107 mmol/L INTERFACE SYSTEM CO2 23.0 22 - 31 mmol/L INTERFACE SYSTEM ANION GAP 16 4 - 20 INTERFACE SYSTEM CALCIUM 8.7 8.5 - 10.1 mg/dl INTERFACE SYSTEM Specimen Narrative Performed At FASTING INTERFACE SYSTEM Performing Organization Address [facility] one Number INTERFACE SYSTEM INTERFACE SYSTEM Refer to clinic/hospital department documented in this encounter Visit Diagnoses Diagnosis Other pulmonary embolism and infarction - Primary documented in this encounter
--- OUTSIDE RECORDS SUMMARY | 2019-10-21 18:59 | XMS REPORT | Encounter Summary ---
Author Author [facility] Organization [facility] Address Unknown Phone Unavailable Care Team Providers Care Picker Box Operator Name Role Phone Phong Stephens MD PCP Unavailable Robby Rajan APRN Unavailable Phong Stephens MD PCP Unavailable Carlos Middleton PCP Lorraine Hathaway MD PCP Mhcf, External Provider PCP Unavailable Encounter Details Care Team Description Date Type Department Maurice Durbin MD [address] [place] [phone] VENOUS THROMBOSIS NEC (Primary Dx) 03/14/2005 Outpatient [facility] [address] [facility] ICA [...] Priority Date/Time Associated Diag nosis PROTIME-INR Routine 03/14/2005 8:45 AM CDT documented in this encounter Results * PROTIME-INR (03/14/2005 8:45 AM CDT) PROTIME 14.0 (H) 9.3 - 11.3 Sec INTERFACE SYSTEM INR 1.40 (L) 2.0 - 3.0 INTERFACE SYSTEM Specimen Performing Organization Address City/State/Zipcode Ph one Number INTERFACE SYSTEM INTERFACE SYSTEM Refer to clinic/hospital department documented in this encounter Visit Diagnoses Diagnosis Other acute embolism veins - Primary Acute venous embolism and thrombosis of other specified veins documented in this encounter
--- OUTSIDE RECORDS SUMMARY | 2019-10-21 18:59 | XMS REPORT | Encounter Summary ---
Author Author [facility] Organization [facility] Address Unknown Phone Unavailable Care Team Providers Care Sectional Belt Mold Assembler Name Role Phone Phong Stephens MD PCP Unavailable Robby Rajan APRN Unavailable Phong Stephens MD PCP Unavailable Carlos Middleton PCP Lorraine Hathaway MD PCP Mhcf, External Provider PCP Unavailable Encounter Details Care Team Description Date Type Department Maurice Durbin MD [address] [place] [phone] MALAISE AND FATIGUE NEC (Primary Dx) 07/10/2005 Outpatient [facility] [address] [facility] ICA [...] Priority Date/Time Associated Diag nosis PROTIME-INR Routine 07/10/2005 11:24 AM NETWORK DEVELOPMENT COORDINATOR documented in this encounter Results * PROTIME-INR (07/10/2005 11:24 AM NETWORK DEVELOPMENT COORDINATOR) PROTIME 16.1 (H) 9.3 - 11.3 Sec INTERFACE SYSTEM INR 1.61 (L) 2.0 - 3.0 INTERFACE SYSTEM Specimen Performing Organization Address City/State/Zipcode Ph one Number INTERFACE SYSTEM INTERFACE SYSTEM Refer to clinic/hospital department documented in this encounter Visit Diagnoses Diagnosis Other malaise and fatigue - Primary documented in this encounter
--- OUTSIDE RECORDS SUMMARY | 2019-10-21 18:59 | XMS REPORT | Encounter Summary ---
Author Author [facility] Organization [facility] Address Unknown Phone Unavailable Care Team Providers Care Senior Information Security Analyst Name Role Phone Phong Stephens MD PCP Unavailable Robby Rajan APRN Unavailable Phong Stephens MD PCP Unavailable Carlos Middleton PCP Lorraine Hathaway MD PCP Mhcf, External Provider PCP Unavailable Encounter Details Care Team Description Date Type Department Maurice Durbin MD [address] [place] [address] ABNORMAL WEIGHT GAIN (Primary Dx) 03/29/2005 Outpatient [facility] Consol idated Historical [facility] [address] [place] [address] Social History Date Tobacco Use Types Packs/Day Years Used Never Assessed Sex Assigned at Date Recorded Not on file Industry Job Start Date Occupation Not on file Not on file Not on file Travel End Travel History Travel Start No recent travel history available. documented as of this encounter Plan of Treatment Not on filedocumented as of this encounter Visit Diagnoses Diagnosis Abnormal weight gain - Primary documented in this encounter
--- OUTSIDE RECORDS SUMMARY | 2019-10-21 18:59 | XMS REPORT | Encounter Summary ---
Author Author [facility] Organization [facility] Address Unknown Phone Unavailable Care Team Providers Care Quality Reviewer Name Role Phone Phong Stephens MD PCP Unavailable Robby Rajan APRN Unavailable Phong Stephens MD PCP Unavailable Carlos Middleton PCP Lorraine Hathaway MD PCP Mhcf, External Provider PCP Unavailable Encounter Details Care Team Description Date Type Department Homar Christian MD [address] [place] [address] DIABETES TYPE II W MANIF NEC (Primary Dx ) 05/18/2005 Outpatient [facility] Laboratory Services [address] [phone] Social History Date Tobacco [...] Associated Diag nosis CBC WITHOUT DIFFERENTIAL Routine 05/18/2005 10:13 AM SOFTWARE TECHNICIAN COMPREHENSIVE METABOLIC Routine 05/18/2005 PANEL 10:13 AM SOFTWARE TECHNICIAN documented in this encounter Results * CBC WITHOUT DIFFERENTIAL (05/18/2005 10:13 AM SOFTWARE TECHNICIAN) WBC 9.1 4.0 - 10.8 x10E3 INTERFACE SYSTEM RBC 4.43 4.2 - 5.4 x10E6 INTERFACE SYSTEM HEMOGLOBIN 13.8 12.0 - 16.0 g/dL INTERFACE SYSTEM HEMATOCRIT 40.7 37 - 47 % INTERFACE SYSTEM MCV 91.8 81.0 - 99.0 fL INTERFACE SYSTEM MCH 31.2 27 - 33 pg INTERFACE SYSTEM MCHC 33.9 32 - 35 g/dL INTERFACE SYSTEM RDW 13.4 12.1 - 16.7 % INTERFACE SYSTEM PLATELETS 202 130 - 400 x10E3 INTERFACE SYSTEM Specimen Performing Organization Address [facility] Ph one Number INTERFACE SYSTEM INTERFACE SYSTEM Refer to clinic/hospital department * COMPREHENSIVE METABOLIC PANEL (05/18/2005 10:13 AM SOFTWARE TECHNICIAN) GLUCOSE 85 70 - 110 mg/dl INTERFACE SYSTEM BUN 16.0 7 - 20 mg/dl INTERFACE SYSTEM CREATININE 0.8 0.6 - 1.0 mg/dl INTERFACE SYSTEM BUN/CREAT RATIO 20.0 10 - 20 INTERFACE SYSTEM SODIUM 138 135 - 145 mmol/L INTERFACE SYSTEM POTASSIUM 4.4 3.5 - 5.1 mmol/L INTERFACE SYSTEM CHLORIDE 104 98 - 107 mmol/L INTERFACE SYSTEM CO2 22.7 22 - 31 mmol/L INTERFACE SYSTEM ANION GAP 16 4 - 20 INTERFACE SYSTEM CALCIUM 8.8 8.5 - 10.1 mg/dl INTERFACE SYSTEM ALBUMIN 4.1 3.4 - 5.0 g/dl INTERFACE SYSTEM TOTAL PROTEIN 6.9 6.4 - 8.2 g/dl INTERFACE SYSTEM GLOBULIN (CALC) 2.8 INTERFACE SYSTEM ALBUMIN/GLOBULI 1.5 INTERFACE N RATIO SYSTEM BILIRUBIN TOTAL 0.4 <1.1 mg/dl INTERFACE SYSTEM ALKALINE 99 50 - 136 IU/L INTERFACE PHOSPHATASE SYSTEM AST 22 10 - 40 IU/L INTERFACE SYSTEM ALT 58 25 - 70 IU/L INTERFACE SYSTEM Specimen Performing Organization Address [facility] Ph one Number INTERFACE SYSTEM INTERFACE SYSTEM Refer to clinic/hospital department documented in this encounter Visit Diagnoses Diagnosis Type II or unspecified type diabetes me llitus with other specified manifestations, not stated as uncontrolled - Primary documented in this encounter
--- OUTSIDE RECORDS SUMMARY | 2019-10-21 18:59 | XMS REPORT | Encounter Summary ---
Author Author [facility] Organization [facility] Address Unknown Phone Unavailable Care Team Providers Care Vineyard Tender Name Role Phone Phong Stephens MD PCP Unavailable Robby Rajan APRN Unavailable Phong Stephens MD PCP Unavailable Carlos Middleton PCP Lorraine Hathaway MD PCP Mhcf, External Provider PCP Unavailable Encounter Details Care Team Description Date Type Department Homar Christian MD [address] [place] [address] URIN TRACT INFECTION NOS (Primary Dx) 05/17/2005 Outpatient [facility] Laboratory Services [address] [phone] Social History Date Tobacco Use [...] of this encounter Visit Diagnoses Diagnosis Urinary tract infection, site not speci fied - Primary documented in this encounter
--- OUTSIDE RECORDS SUMMARY | 2019-10-21 18:59 | XMS REPORT | Encounter Summary ---
[...] Description Date Type Department Maurice Durbin MD [address] [place] [phone] ABNORMAL WEIGHT GAIN (Primary Dx) 03/29/2005 Outpatient [facility] [address] [facility] Historical MEDICAID Social History Date [...] Associated Diag nosis CBC WITH DIFFERENTIAL Routine 03/29/2005 2:35 PM CDT TSH Routine 03/29/2005 2:35 PM CDT COMPREHENSIVE METABOLIC Routine 03/29/2005 PANEL 2:35 PM CDT documented in this encounter Results * CBC WITH DIFFERENTIAL (03/29/2005 2:35 PM CDT) WBC 10.2 4.0 - 10.8 x10E3 INTERFACE SYSTEM RBC 4.23 4.2 - 5.4 x10E6 INTERFACE SYSTEM HEMOGLOBIN 13.3 12.0 - 16.0 g/dL INTERFACE SYSTEM HEMATOCRIT 38.8 37 - 47 % INTERFACE SYSTEM MCV 91.8 81.0 - 99.0 fL INTERFACE SYSTEM MCH 31.6 27 - 33 pg INTERFACE SYSTEM MCHC 34.4 32 - 35 g/dL INTERFACE SYSTEM RDW 13.8 12.1 - 16.7 % INTERFACE SYSTEM PLATELETS 209 130 - 400 x10E3 INTERFACE SYSTEM NEUTROPHILS 64.4 37.0 - 75.0 % INTERFACE SYSTEM MONOCYTES 6.5 0.0 - 12.0 % INTERFACE SYSTEM EOSINOPHILS 1.7 0.0 - 7.0 % INTERFACE SYSTEM BASOPHILS 1.5 0.0 - 2.5 % INTERFACE SYSTEM NEUTROPHIL 6.5 2.0 - 6.9 x10E3 INTERFACE ABSOLUTE SYSTEM MONOCYTE 0.7 0.0 - 0.9 x10E3 INTERFACE ABSOLUTE SYSTEM EOSINOPHIL 0.2 0.0 - 0.7 x10E3 INTERFACE ABSOLUTE SYSTEM BASOPHILS 0.2 0 - 0.2 x10E3 INTERFACE ABSOLUTE SYSTEM Specimen Narrative Performed At Preop Test? N INTERFACE SYSTEM COMMENT: WT GAIN, 462 VOMITING, FATIGUE Performing Organization Address [facility] Ph one Number INTERFACE SYSTEM INTERFACE SYSTEM Refer to clinic/hospital department * TSH (03/29/2005 2:35 PM CDT) TSH 1.44 0.34 - 4.82 uIU/ml INTERFACE SYSTEM Specimen Narrative Performed At Preop Test? N INTERFACE SYSTEM COMMENT: WT GAIN, 462 VOMITING, FATIGUE Performing Organization Address [facility] Ph one Number INTERFACE SYSTEM INTERFACE SYSTEM Refer to clinic/hospital department * COMPREHENSIVE METABOLIC PANEL (03/29/2005 2:35 PM CDT) GLUCOSE 90 70 - 110 mg/dl INTERFACE SYSTEM BUN 15.0 7 - 20 mg/dl INTERFACE SYSTEM CREATININE 0.9 0.6 - 1.0 mg/dl INTERFACE SYSTEM BUN/CREAT RATIO 16.7 10 - 20 INTERFACE SYSTEM SODIUM 138 135 - 145 mmol/L INTERFACE SYSTEM POTASSIUM 4.6 3.5 - 5.1 mmol/L INTERFACE SYSTEM CHLORIDE 102 98 - 107 mmol/L INTERFACE SYSTEM CO2 22.4 22 - 31 mmol/L INTERFACE SYSTEM ANION GAP 18 4 - 20 INTERFACE SYSTEM CALCIUM 8.7 8.5 - 10.1 mg/dl INTERFACE SYSTEM ALBUMIN 4.2 3.4 - 5.0 g/dl INTERFACE SYSTEM TOTAL PROTEIN 6.6 6.4 - 8.2 g/dl INTERFACE SYSTEM GLOBULIN (CALC) 2.4 INTERFACE SYSTEM ALBUMIN/GLOBULI 1.8 INTERFACE N RATIO SYSTEM BILIRUBIN TOTAL 0.3 <1.1 mg/dl INTERFACE SYSTEM ALKALINE 121 50 - 136 IU/L INTERFACE PHOSPHATASE SYSTEM AST 18 10 - 40 IU/L INTERFACE SYSTEM ALT 47 25 - 70 IU/L INTERFACE SYSTEM Specimen Narrative Performed At Preop Test? N INTERFACE SYSTEM COMMENT: WT GAIN, 462 VOMITING, FATIGUE Performing Organization Address City/State/Zipcode Ph one Number INTERFACE SYSTEM INTERFACE SYSTEM Refer to clinic/hospital department documented in this encounter Visit Diagnoses Diagnosis Abnormal weight gain - Primary documented in this encounter
--- OUTSIDE RECORDS SUMMARY | 2019-10-21 18:59 | XMS REPORT | Encounter Summary ---
Author Author [facility] Organization [facility] Address Unknown Phone Unavailable Care Team Providers Care Department Head Name Role Phone Phong Stephens MD PCP Unavailable Robby Rajan APRN Unavailable Phong Stephens MD PCP Unavailable Carlos Middleton PCP Lorraine Hathaway MD PCP Mhcf, External Provider PCP Unavailable Encounter Details Care Team Description Date Type Department Maurice Durbin MD [address] [place] [address] DIABETES TYPE II W NEURO MANIFESTATIONS (Primary Dx) 04/12/2005 Outpatient [facility] Consol idated Historical [facility] [address] [place] [address] Social History Date Tobacco Use Types Packs/Day [...]
--- OUTSIDE RECORDS SUMMARY | 2019-10-21 18:59 | XMS REPORT | Encounter Summary ---
Author Author [facility] Organization [facility] Address Unknown Phone Unavailable Care Team Providers Care Housing Manager Name Role Phone Phong Stephens MD PCP Unavailable Robby Rajan APRN Unavailable Phong Stephens MD PCP Unavailable Carlos Middleton PCP Lorraine Hathaway MD PCP Mhcf, External Provider PCP Unavailable Encounter Details Care Team Description Date Type Department Kalyan Cruz ARNP [address] [place] [address] LOWER EXTR THROMBOSIS NOS (Primary Dx) 04/05/2005 Emergency [facility] Emergency Department [address] [phone] Social History Date Tobacco [...] Priority Date/Time Associated Diag nosis PROTIME-INR Routine 04/05/2005 10:50 PM SPECIAL ASSETS OFFICER CBC WITH MANUAL Routine 04/05/2005 DIFFERENTIAL 10:50 PM SPECIAL ASSETS OFFICER COMPREHENSIVE METABOLIC Routine 04/05/2005 PANEL 10:50 PM SPECIAL ASSETS OFFICER documented in this encounter Results * CBC WITH MANUAL DIFFERENTIAL (04/05/2005 10:50 PM SPECIAL ASSETS OFFICER) WBC 9.8 4.0 - 10.8 x10E3 INTERFACE SYSTEM RBC 3.89 (L) 4.2 - 5.4 x10E6 INTERFACE SYSTEM HEMOGLOBIN 12.3 12.0 - 16.0 g/dL INTERFACE SYSTEM HEMATOCRIT 35.9 (L) 37 - 47 % INTERFACE SYSTEM MCV 92.3 81.0 - 99.0 fL INTERFACE SYSTEM MCH 31.7 27 - 33 pg INTERFACE SYSTEM MCHC 34.3 32 - 35 g/dL INTERFACE SYSTEM RDW 12.3 12.1 - 16.7 % INTERFACE SYSTEM PLATELETS 177 130 - 400 x10E3 INTERFACE SYSTEM MPV 9.2 7.4 - 10.4 fL INTERFACE SYSTEM NEUTROPHILS 62.8 37.0 - 75.0 % INTERFACE SYSTEM MONOCYTES 5.9 0.0 - 12.0 % INTERFACE SYSTEM EOSINOPHILS 2.2 0.0 - 7.0 % INTERFACE SYSTEM BASOPHILS 1.2 0.0 - 2.5 % INTERFACE SYSTEM NEUTROPHIL 6.2 2.0 - 6.9 x10E3 INTERFACE ABSOLUTE SYSTEM MONOCYTE 0.6 0.0 - 0.9 x10E3 INTERFACE ABSOLUTE SYSTEM EOSINOPHIL 0.2 0.0 - 0.7 x10E3 INTERFACE ABSOLUTE SYSTEM BASOPHILS 0.1 0 - 0.2 x10E3 INTERFACE ABSOLUTE SYSTEM EOSINOPHILS 1 % INTERFACE SYSTEM BANDS 5 % INTERFACE SYSTEM NEUTROPHILS, 59 % INTERFACE SEG SYSTEM LYMPHOCYTES 29 % INTERFACE SYSTEM MONOCYTE 6 % INTERFACE SYSTEM PLATELET EST. Normal INTERFACE SYSTEM WBC ESTIMATE Normal INTERFACE SYSTEM Specimen Narrative Performed At Preop Test? N INTERFACE SYSTEM Performing Organization Address [facility] one Number INTERFACE SYSTEM INTERFACE SYSTEM Refer to clinic/hospital department * PROTIME-INR (04/05/2005 10:50 PM SPECIAL ASSETS OFFICER) Pathologist [facility] PROTIME 28.6 (H) 9.3 - 11.3 Sec INTERFACE SYSTEM INR 2.89 2.0 - 3.0 INTERFACE SYSTEM Specimen Narrative Performed At Preop Test? N INTERFACE SYSTEM Performing Organization Address [facility] one Number INTERFACE SYSTEM INTERFACE SYSTEM Refer to clinic/hospital department * COMPREHENSIVE METABOLIC PANEL (04/05/2005 10:50 PM SPECIAL ASSETS OFFICER) Pathologist [facility] GLUCOSE 101 70 - 110 mg/dl INTERFACE SYSTEM BUN 13.0 7 - 20 mg/dl INTERFACE SYSTEM CREATININE 1.1 (H) 0.6 - 1.0 mg/dl INTERFACE SYSTEM BUN/CREAT RATIO 11.8 10 - 20 INTERFACE SYSTEM SODIUM 141 135 - 145 mmol/L INTERFACE SYSTEM POTASSIUM 4.2 3.5 - 5.1 mmol/L INTERFACE SYSTEM CHLORIDE 105 98 - 107 mmol/L INTERFACE SYSTEM CO2 26.9 22 - 31 mmol/L INTERFACE SYSTEM ANION GAP 13 4 - 20 INTERFACE SYSTEM CALCIUM 8.3 (L) 8.5 - 10.1 mg/dl INTERFACE SYSTEM ALBUMIN 3.6 3.4 - 5.0 g/dl INTERFACE SYSTEM TOTAL PROTEIN 6.4 6.4 - 8.2 g/dl INTERFACE SYSTEM GLOBULIN (CALC) 2.8 INTERFACE SYSTEM ALBUMIN/GLOBULI 1.3 INTERFACE N RATIO SYSTEM BILIRUBIN TOTAL 0.2 <1.1 mg/dl INTERFACE SYSTEM ALKALINE 103 50 - 136 IU/L INTERFACE PHOSPHATASE SYSTEM AST 17 10 - 40 IU/L INTERFACE SYSTEM ALT [...]
--- OUTSIDE RECORDS SUMMARY | 2019-10-21 18:59 | XMS REPORT | Encounter Summary ---
Author Author [facility] Organization [facility] Address Unknown Phone Unavailable Care Team Providers Care Head Teller Name Role Phone Phong Stephens MD PCP Unavailable Robby Rajan APRN Unavailable Phong Stephens MD PCP Unavailable Carlos Middleton PCP Lorraine Hathaway MD PCP [facility]cf, External Provider PCP Unavailable Encounter Details Care Team Description Date Type Department Lavell Lance MD HEADACHE (Primary Dx) 05/29/2005 Emergency [facility] Emergency Department [address] [address] Social History Date Tobacco Use [...]
--- OUTSIDE RECORDS SUMMARY | 2019-10-21 19:00 | XMS REPORT | Encounter Summary ---
Author Author [facility] Organization [facility] Address Unknown Phone Unavailable Care Team Providers Care Automobile Service Station Manager Name Role Phone Phong Stephens MD PCP Unavailable Robby Rajan APRN Unavailable Phong Stephens MD PCP Unavailable Carlos Middleton PCP Lorraine Hathaway MD PCP M[facility]cf, External Provider PCP Unavailable Encounter Details Care Team Description Date Type Department Maurice Durbin MD [address] [place] [phone] LUMBAGO (Primary Dx) 01/23/[address] [facility] Emergency Department [address] [address] Social History Date Tobacco [...]
--- OUTSIDE RECORDS SUMMARY | 2019-10-21 19:00 | XMS REPORT | Encounter Summary ---
Author Author [facility] Organization [facility] Address Unknown Phone Unavailable Care Team Providers Care Range Aid Name Role Phone Phong Stephens MD PCP Unavailable Robby Rajan APRN Unavailable Phong Stephens MD PCP Unavailable Carlos Middleton PCP Lorraine Hathaway MD PCP Mhcf, External Provider PCP Unavailable Encounter Details Care Team Description Date Type Department Maurice Durbin MD [address] [place] [address] BACKACHE NOS (Primary Dx) 01/13/2005 Outpatient [facility] Consol idated Historical [facility] [address] [place] [address] Social History Date Tobacco Use Types Packs/Day [...]
--- OUTSIDE RECORDS SUMMARY | 2019-10-21 19:00 | XMS REPORT | Encounter Summary ---
Author Author [facility] Organization [facility] Address Unknown Phone Unavailable Care Team Providers Care Blood Bank Attendant Name Role Phone Phong Stephens MD PCP Unavailable Robby Rajan APRN Unavailable Phong Stephens MD PCP Unavailable Carlos Middleton PCP Lorraine Hathaway MD PCP Mhcf, External Provider PCP Unavailable Encounter Details Care Team Description Date Type Department Reggie Ramirez MD NO ADDRESS ON FILE LOWER LEG INJURY NOS (Primary Dx) 08/[facility]/2004 [facility] Historical [address] [address] Social History Date Tobacco Use [...]
--- OUTSIDE RECORDS SUMMARY | 2019-10-21 19:00 | XMS REPORT | Encounter Summary ---
Author Author [facility] Organization [facility] Address Unknown Phone Unavailable Care Team Providers Care Machine Leather Trimmer Name Role Phone Phong Stephens MD PCP Unavailable Robby Rajan APRN Unavailable Phong Stephens MD PCP Unavailable Carlos Middleton PCP Lorraine Hathaway MD PCP Mhcf, External Provider PCP Unavailable Encounter Details Care Team Description Date Type Department Maurice Durbin MD [address] [place] [address] BACKACHE NOS (Primary Dx) 10/10/2004 [facility] Historical [address] [address] Social History Date Tobacco [...]
--- OUTSIDE RECORDS SUMMARY | 2019-10-21 19:00 | XMS REPORT | Encounter Summary ---
Author Author [facility] Organization [facility] Address Unknown Phone Unavailable Care Team Providers Care Remelt Pan Tank Operator Name Role Phone Phong Stephens MD PCP Unavailable Robby Rajan APRN Unavailable Phong Stephens MD PCP Unavailable Carlos Middleton PCP Lorraine Hathaway MD PCP M[facility]cf, External Provider PCP Unavailable Encounter Details Care Team Description Date Type Department Maurice Durbin MD [address] [place] [phone] Pure hypercholesterolem (Primary Dx) 10/19/2004 Outpatient [facility] [address] [facility] [...] Priority Date/Time Associated Diag nosis LIPID PANEL Routine 10/19/2004 8:38 AM CDT COMPREHENSIVE METABOLIC Routine 10/19/2004 PANEL 8:38 AM CDT documented in this encounter Results * LIPID PANEL (10/19/2004 8:38 AM CDT) CHOLESTEROL 220 (H) 140 - 200 mg/dl INTERFACE SYSTEM TRIGLYCERIDE 186 0 - 199 mg/dl INTERFACE Comment: SYSTEM REFERENCE RANGE - TRIGLYCERIDES NORMAL LESS THAN 150 mg/dl BORDERLINE HIGH 150 - 199 mg/dl HIGH 200 - 499 mg/dl VERY HIGH GREATER THAN OR = 500 mg/dl HDL 38 29 - 89 mg/dl INTERFACE SYSTEM LDL 147 (H) <130 mg/dl INTERFACE CHOLESTEROL, SYSTEM DIRECT Specimen Narrative Performed At 14 HR FAST INTERFACE SYSTEM Performing Organization Address [facility] Ph one Number INTERFACE SYSTEM INTERFACE SYSTEM Refer to clinic/hospital department * COMPREHENSIVE METABOLIC PANEL (10/19/2004 8:38 AM CDT) GLUCOSE 79 70 - 110 mg/dl INTERFACE SYSTEM BUN 14.0 7 - 20 mg/dl INTERFACE SYSTEM CREATININE 0.9 0.6 - 1.0 mg/dl INTERFACE SYSTEM BUN/CREAT RATIO 15.6 10 - 20 INTERFACE SYSTEM SODIUM 139 135 - 145 mmol/L INTERFACE SYSTEM POTASSIUM 4.2 3.5 - 5.1 mmol/L INTERFACE SYSTEM CHLORIDE 101 98 - 107 mmol/L INTERFACE SYSTEM CO2 24.9 22 - 31 mmol/L INTERFACE SYSTEM ANION GAP 17 4 - 20 INTERFACE SYSTEM CALCIUM 8.9 8.5 - 10.1 mg/dl INTERFACE SYSTEM ALBUMIN 3.9 3.4 - 5.0 g/dl INTERFACE SYSTEM TOTAL PROTEIN 6.9 6.4 - 8.2 g/dl INTERFACE SYSTEM GLOBULIN (CALC) 3.0 INTERFACE SYSTEM ALBUMIN/GLOBULI 1.3 INTERFACE N RATIO SYSTEM BILIRUBIN TOTAL 0.4 <1.1 mg/dl INTERFACE SYSTEM ALKALINE 97 50 - 136 IU/L INTERFACE PHOSPHATASE SYSTEM AST 12 10 - 40 IU/L INTERFACE SYSTEM ALT 45 25 - 70 IU/L INTERFACE SYSTEM Specimen Narrative Performed At 14 HR FAST INTERFACE SYSTEM Performing Organization Address [facility] Ph one Number INTERFACE SYSTEM INTERFACE SYSTEM Refer to clinic/hospital department documented in this encounter Visit Diagnoses Diagnosis Pure hypercholesterolem - Primary Pure hypercholesterolemia documented in this encounter
--- OUTSIDE RECORDS SUMMARY | 2019-10-21 19:00 | XMS REPORT | Encounter Summary ---
Author Author [facility] Organization [facility] Address Unknown Phone Unavailable Care Team Providers Care Haul Driver Name Role Phone Phong Stephens MD PCP Unavailable Robby Rajan APRN Unavailable Phong Stephens MD PCP Unavailable Carlos Middleton PCP Lorraine Hathaway MD PCP [facility]cf, External Provider PCP Unavailable Encounter Details Care Team Description Date Type Department Robby Nice, DO [address] [place] [address] LUMBAGO (Primary Dx) 01/28/2005 Emergency [facility] Emergency Department [address] [address] Social History Date Tobacco [...]
--- OUTSIDE RECORDS SUMMARY | 2019-10-21 19:00 | XMS REPORT | Encounter Summary ---
Author Author [facility] Organization [facility] Address Unknown Phone Unavailable Care Team Providers Care Regional Sales Executive Name Role Phone Phong Stephens MD PCP Unavailable Robby Rajan APRN Unavailable Phong Stephens MD PCP Unavailable Carlos Middleton PCP Lorraine Hathaway MD PCP Mhcf, External Provider PCP Unavailable Encounter Details Care Team Description Date Type Department Maurice Durbin MD [address] [place] [address] BACKACHE NOS (Primary Dx) 01/05/2005 Outpatient [facility] Consol idated Historical [facility] [address] [place] [address] Social History Date Tobacco Use Types Packs/Day [...]
--- OUTSIDE RECORDS SUMMARY | 2019-10-21 19:00 | XMS REPORT | Encounter Summary ---
Author Author [facility] Organization [facility] Address Unknown Phone Unavailable Care Team Providers Care Audiometrist Name Role Phone Phong Stephens MD PCP Unavailable Robby Rajan APRN Unavailable Phong Stephens MD PCP Unavailable Carlos Middleton PCP Lorraine Hathaway MD PCP M[facility]cf, External Provider PCP Unavailable Encounter Details Care Team Description Date Type Department Maurice Durbin MD [address] [place] [address] NEURALGIA/NEURITIS NOS (Primary Dx) 10/06/2004 Outpatient [facility] Consol idated [facility] [address] [place] [address] Social History Date Tobacco Use Types Packs/Day Years Used Never Assessed Sex Assigned at Date Recorded Not on file Industry Job Start Date Occupation Not on file Not on file Not on file Travel End Travel History Travel Start No recent travel history available. documented as of this encounter Plan of Treatment Not on filedocumented as of this encounter Visit Diagnoses Diagnosis Neuralgia, neuritis, and radiculitis, u nspecified - Primary documented in this encounter
--- OUTSIDE RECORDS SUMMARY | 2019-10-21 19:00 | XMS REPORT | Encounter Summary ---
Author Author [facility] Organization [facility] Address Unknown Phone Unavailable Care Team Providers Care Wind Turbine Engineer Name Role Phone Phong Stephens MD PCP Unavailable Robby Rajan APRN Unavailable Phong Stephens MD PCP Unavailable Carlos Middleton PCP Lorraine Hathaway MD PCP Mhcf, External Provider PCP Unavailable Encounter Details Care Team Description Date Type Department Maurice Durbin MD [address] [place] [address] BACKACHE NOS (Primary Dx) 09/30/2004 Outpatient [facility] Consol idated Historical [facility] [address] [place] [address] Social History Date Tobacco Use Types Packs/Day [...]
--- OUTSIDE RECORDS SUMMARY | 2019-10-21 19:00 | XMS REPORT | Encounter Summary ---
Author Author [facility] Organization [facility] Address Unknown Phone Unavailable Care Team Providers Care Nutritionist Public Health Name Role Phone Phong Stephens MD PCP Unavailable Robby Rajan APRN Unavailable Phong Stephens MD PCP Unavailable Carlos Middleton PCP Lorraine Hathaway MD PCP M[facility]cf, External Provider PCP Unavailable Encounter Details Care Team Description Date Type Department Maurice Durbin MD [address] [place] [address] Nonspecif skin erupt NEC (Primary Dx) 11/30/2004 Outpatient [facility] Consol idated Historical [facility] [address] [place] [address] Social History Date Tobacco Use Types Packs/Day [...]
--- OUTSIDE RECORDS SUMMARY | 2019-10-21 19:00 | XMS REPORT | Encounter Summary ---
Author Author [facility] Organization [facility] Address Unknown Phone Unavailable Care Team Providers Care Ore Miner Name Role Phone Phong Stephens MD PCP Unavailable Robby Rajan APRN Unavailable Phong Stephens MD PCP Unavailable Carlos Middleton PCP Lorraine Hathaway MD PCP M[facility]cf, External Provider PCP Unavailable Encounter Details Care Team Description Date Type Department Reggie Ramirez MD NO ADDRESS ON FILE Joint pain-l/leg (Primary Dx) 08/25/2004 Outpatient [facility] Consol idated Historical [address] [address] Social History Date Tobacco Use Types Packs/Day [...]
--- OUTSIDE RECORDS SUMMARY | 2019-10-21 19:00 | XMS REPORT | Encounter Summary ---
Author Author [facility] Organization [facility] Address Unknown Phone Unavailable Care Team Providers Care Microsoft Dynamics Ax Consultant Name Role Phone Phong Stephens MD PCP Unavailable Robby Rajan APRN Unavailable Phong Stephens MD PCP Unavailable Carlos Middleton PCP Lorraine Hathaway MD PCP Mhcf, External Provider PCP Unavailable Encounter Details Care Team Description Date Type Department Maurice Durbin MD [address] [place] [address] CONJUNCTIVITIS NOS (Primary Dx) 02/14/2005 Outpatient [facility] Consol idated [facility] [address] [place] [address] Social History Date Tobacco Use Types Packs/Day Years Used Never Assessed Sex Assigned at Date Recorded Not on file Industry Job Start Date Occupation Not on file Not on file Not on file Travel End Travel History Travel Start No recent travel history available. documented as of this encounter Plan of Treatment Not on filedocumented as of this encounter Visit Diagnoses Diagnosis Conjunctivitis unspecified - Primary Conjunctivitis, unspecified documented in this encounter
--- OUTSIDE RECORDS SUMMARY | 2019-10-21 19:00 | XMS REPORT | Encounter Summary ---
Author Author [facility] Organization [facility] Address Unknown Phone Unavailable Care Team Providers Care Scientific Diver Name Role Phone Phong Stephens MD PCP Unavailable Robby Rajan APRN Unavailable Phong Stephens MD PCP Unavailable Carlos Middleton PCP Lorraine Hathaway MD PCP M[facility]cf, External Provider PCP Unavailable Encounter Details Care Team Description Date Type Department Maurice Durbin MD [address] [place] [address] VENOUS THROMBOSIS NEC (Primary Dx) 03/14/2005 Outpatient [facility] Consol idated Historical [facility] [address] [place] [address] Social History Date Tobacco Use Types Packs/Day [...]
--- OUTSIDE RECORDS SUMMARY | 2019-10-21 19:00 | XMS REPORT | Encounter Summary ---
Author Author [facility] Organization [facility] Address Unknown Phone Unavailable Care Team Providers Care Credit Collections Manager Name Role Phone Phong Stephens MD PCP Unavailable Robby Rajan APRN Unavailable Phong Stephens MD PCP Unavailable Carlos Middleton PCP Lorraine Hathaway MD PCP [facility], External Provider PCP Unavailable Encounter Details Care Team Description Date Type Department Maurice Durbin MD [address] [place] [address] DIABETES MELLITUS TYPE II-UNCOMPL (Prima ry Dx) 09/19/2004 Outpatient [facility] Consol idated Historical [facility] [address] [place] [address] Social History Date Tobacco Use Types Packs/Day [...]
--- OUTSIDE RECORDS SUMMARY | 2019-10-21 19:00 | XMS REPORT | Encounter Summary ---
Author Author [facility] Organization [facility] Address Unknown Phone Unavailable Care Team Providers Care E Commerce Developer Name Role Phone Phong Stephens MD PCP Unavailable Robby Rajan APRN Unavailable Phong Stephens MD PCP Unavailable Carlos Middleton PCP Lorraine Hathaway MD PCP Mhcf, External Provider PCP Unavailable Encounter Details Care Team Description Date Type Department Maurice Durbin MD [address] [place] [phone] DIABETES MELLITUS TYPE II-UNCOMPL (Prima ry Dx) 09/19/2004 Outpatient [facility] [address] [facility] [...] Date/Time Associated Diag nosis HEMOGLOBIN A1C Routine 09/19/2004 3:30 PM CDT documented in this encounter Results * HEMOGLOBIN A1C (09/19/2004 3:30 PM CDT) HEMOGLOBIN A1C 5.4 0 - 6.0 % INTERFACE SYSTEM GLUCOSE, MEAN 105 mg/dl INTERFACE BLOOD SYSTEM Specimen Narrative Performed At Preop Test? N INTERFACE SYSTEM COMMENT: NIDDM Performing Organization Address City/State/Zipcode Ph one Number INTERFACE SYSTEM INTERFACE SYSTEM Refer to clinic/hospital department documented in this encounter Visit Diagnoses Diagnosis Type II or unspecified type diabetes me llitus without mention of complication, not stated as uncontrolled - Primary documented in this encounter
--- OUTSIDE RECORDS SUMMARY | 2019-10-21 19:00 | XMS REPORT | Encounter Summary ---
Author Author [facility] Organization [facility] Address Unknown Phone Unavailable Care Team Providers Care Logistics Administrator Name Role Phone Phong Stephens MD PCP Unavailable Robby Rajan APRN Unavailable Phong Stephens MD PCP Unavailable Carlos Middleton PCP Lorraine Hathaway MD PCP Mhcf, External Provider PCP Unavailable Encounter Details Care Team Description Date Type Department Maurice Durbin MD [address] [place] [address] EDEMA (Primary Dx) 03/09/2005 Outpatient [facility] Consol idated Historical [facility] [address] [place] [address] Social History Date Tobacco Use Types Packs/Day [...]
--- OUTSIDE RECORDS SUMMARY | 2019-10-21 19:00 | XMS REPORT | Encounter Summary ---
Author Author [facility] Organization [facility] Address Unknown Phone Unavailable Care Team Providers Care Vice President Research Name Role Phone Phong Stephens MD PCP Unavailable Robby Rajan APRN Unavailable Phong Stephens MD PCP Unavailable Carlos Middleton PCP Lorraine Hathaway MD PCP Mhcf, External Provider PCP Unavailable Encounter Details Care Team Description Date Type Department Maurice Durbin MD [address] [place] [address] ASTHMA UNSPECIFIED WITH EXAC (Primary Dx ) 11/17/2004 Outpatient [facility] Consol idated Historical [facility] [address] [place] [address] Social History Date Tobacco Use Types Packs/Day [...]
--- OUTSIDE RECORDS SUMMARY | 2019-10-21 19:00 | XMS REPORT | Encounter Summary ---
Author Author [facility] Organization [facility] Address Unknown Phone Unavailable Care Team Providers Care Adjunct Professor Of U.[place]. History Name Role Phone Phong Stephens MD PCP Unavailable Robby Rajan APRN Unavailable Phong Stephens MD PCP Unavailable Carlos Middleton PCP Lorraine Hathaway MD PCP Mhcf, External Provider PCP Unavailable Encounter Details Care Team Description Date Type Department Maurice Durbin MD [address] [place] [address] Pain in limb (Primary Dx) 03/10/2005 Outpatient [facility] Ultrasound [address] [place] [address] Social History Date Tobacco Use [...]
--- OUTSIDE RECORDS SUMMARY | 2019-10-21 19:00 | XMS REPORT | Encounter Summary ---
Author Author [facility] Organization [facility] Address Unknown Phone Unavailable Care Team Providers Care Handling Tech Name Role Phone Phong Stephens MD PCP Unavailable Robby Rajan APRN Unavailable Phong Stephens MD PCP Unavailable Carlos Middleton PCP Lorraine Hathaway MD PCP M[facility]cf, External Provider PCP Unavailable Encounter Details Care Team Description Date Type Department Canelo Patton MD [address] [place] [address] DIABETES TYPE II W NEURO MANIFESTATIONS (Primary Dx) 03/07/2005 [facility] [place] [address] [place] [address] Social History Date Tobacco Use Types Packs/Day [...]
--- OUTSIDE RECORDS SUMMARY | 2019-10-21 19:00 | XMS REPORT | Encounter Summary ---
Author Author [facility] Organization [facility] Address Unknown Phone Unavailable Care Team Providers Care Security Police Name Role Phone Phong Stephens MD PCP Unavailable Robby Rajan APRN Unavailable Phong Stephens MD PCP Unavailable Carlos Middleton PCP Lorraine Hathaway MD PCP Mhcf, External Provider PCP Unavailable Encounter Details Care Team Description Date Type Department Maurice Durbin MD [address] [place] [address] Pure hypercholesterolem (Primary Dx) 10/20/2004 Outpatient [facility] Consol idated Historical [facility] [address] [place] [address] Social History Date Tobacco Use Types Packs/Day [...]
--- OUTSIDE RECORDS SUMMARY | 2019-10-21 19:00 | XMS REPORT | Encounter Summary ---
Author Author [facility] Organization [facility] Address Unknown Phone Unavailable Care Team Providers Care Underwriting Sales Representative Name Role Phone Phong Stephens MD PCP Unavailable Robby Rajan APRN Unavailable Phong Stephens MD PCP Unavailable Carlos Middleton PCP Lorraine Hathaway MD PCP Mhcf, External Provider PCP Unavailable Encounter Details Care Team Description Date Type Department Reggie Ramirez MD NO ADDRESS ON FILE LUMBAGO (Primary Dx) 01/10/2005 Emergency [facility] Emergency Department [address] [address] Social History Date Tobacco Use [...]
--- OUTSIDE RECORDS SUMMARY | 2019-10-21 19:00 | XMS REPORT | Encounter Summary ---
Author Author [facility] Organization [facility] Address Unknown Phone Unavailable Care Team Providers Care Network Control Operator Name Role Phone Phong Stephens MD PCP Unavailable Robby Rajan APRN Unavailable Phong Stephens MD PCP Unavailable Carlos Middleton PCP Lorraine Hathaway MD PCP Mhcf, External Provider PCP Unavailable Encounter Details Care Team Description Date Type Department Maurice Durbin MD [address] [place] [address] No proc for reasons NEC (Primary Dx) 01/09/2005 [facility] Historical [place] [address] [place] [address] Social History Date Tobacco Use [...]
--- OUTSIDE RECORDS SUMMARY | 2019-10-21 19:00 | XMS REPORT | Encounter Summary ---
Author Author [facility] Organization [facility] Address Unknown Phone Unavailable Care Team Providers Care Enrollment Eligibility Representative Name Role Phone Phong Stephens MD PCP Unavailable Robby Rajan APRN Unavailable Phong Stephens MD PCP Unavailable Carlos Middleton PCP Lorraine Hathaway MD PCP M[facility]cf, External Provider PCP Unavailable Encounter Details Care Team Description Date Type Department Kalyan Cruz ARNP [address] [place] [address] HEADACHE (Primary Dx) 08/28/2004 Emergency [facility] Emergency Department [address] [address] Social History Date Tobacco Use [...]
--- OUTSIDE RECORDS SUMMARY | 2019-10-21 19:00 | XMS REPORT | Encounter Summary ---
Author Author [facility] Organization [facility] Address Unknown Phone Unavailable Care Team Providers Care Dietitian Consultant Name Role Phone Phong Stephens MD PCP Unavailable Robby Rajan APRN Unavailable Phong Stephens MD PCP Unavailable Carlos Middleton PCP Lorraine Hathaway MD PCP Mhcf, External Provider PCP Unavailable Encounter Details Care Team Description Date Type Department Maurice Durbin MD [address] [place] [address] VENOUS THROMBOSIS NEC (Primary Dx) 03/10/2005 Inpatient [facility] Surgery [place] [address] [place] [address] Social History Date Tobacco Use [...] Priority Date/Time Associated Diag nosis PROTIME-INR Routine 03/11/2005 6:10 AM CDT CBC WITHOUT DIFFERENTIAL Routine 03/11/2005 6:10 AM CDT COMPREHENSIVE METABOLIC Routine 03/11/2005 PANEL 6:10 AM CDT documented in this encounter Results * CBC WITHOUT DIFFERENTIAL (03/11/2005 6:10 AM CDT) WBC 7.9 4.0 - 10.8 x10E3 INTERFACE SYSTEM RBC 4.38 4.2 - 5.4 x10E6 INTERFACE SYSTEM HEMOGLOBIN 13.7 12.0 - 16.0 g/dL INTERFACE SYSTEM HEMATOCRIT 40.7 37 - 47 % INTERFACE SYSTEM MCV 92.9 81.0 - 99.0 fL INTERFACE SYSTEM MCH 31.3 27 - 33 pg INTERFACE SYSTEM MCHC 33.7 32 - 35 g/dL INTERFACE SYSTEM RDW 12.9 12.1 - 16.7 % INTERFACE SYSTEM PLATELETS 178 130 - 400 x10E3 INTERFACE SYSTEM Specimen Performing Organization Address [facility] one Number INTERFACE SYSTEM INTERFACE SYSTEM Refer to clinic/hospital department * PROTIME-INR (03/11/2005 6:10 AM CDT) PROTIME 9.6 9.3 - 11.3 Sec INTERFACE SYSTEM INR 0.95 (L) 2.0 - 3.0 INTERFACE SYSTEM Specimen Performing Organization Address [facility] one Number INTERFACE SYSTEM INTERFACE SYSTEM Refer to clinic/hospital department * COMPREHENSIVE METABOLIC PANEL (03/11/2005 6:10 AM CDT) GLUCOSE 92 70 - 110 mg/dl INTERFACE SYSTEM BUN 17.0 7 - 20 mg/dl INTERFACE SYSTEM CREATININE 0.9 0.6 - 1.0 mg/dl INTERFACE SYSTEM BUN/CREAT RATIO 18.9 10 - 20 INTERFACE SYSTEM SODIUM 140 135 - 145 mmol/L INTERFACE SYSTEM POTASSIUM 4.0 3.5 - 5.1 mmol/L INTERFACE SYSTEM CHLORIDE 103 98 - 107 mmol/L INTERFACE SYSTEM CO2 25.5 22 - 31 mmol/L INTERFACE SYSTEM ANION GAP 16 4 - 20 INTERFACE SYSTEM CALCIUM 8.9 8.5 - 10.1 mg/dl INTERFACE SYSTEM ALBUMIN 3.9 3.4 - 5.0 g/dl INTERFACE SYSTEM TOTAL PROTEIN 6.5 6.4 - 8.2 g/dl INTERFACE SYSTEM GLOBULIN (CALC) 2.6 INTERFACE SYSTEM ALBUMIN/GLOBULI 1.5 INTERFACE N RATIO SYSTEM BILIRUBIN TOTAL 0.4 <1.1 mg/dl INTERFACE SYSTEM ALKALINE 109 50 - 136 IU/L INTERFACE PHOSPHATASE SYSTEM AST 14 10 - 40 IU/L INTERFACE SYSTEM ALT 37 25 - 70 IU/L INTERFACE SYSTEM Specimen Performing Organization Address [facility] one Number INTERFACE SYSTEM INTERFACE SYSTEM Refer to clinic/hospital department documented in this encounter Visit Diagnoses Diagnosis Other acute embolism veins - Primary Acute venous embolism and thrombosis of other specified veins documented in this encounter
--- OUTSIDE RECORDS SUMMARY | 2019-10-21 19:00 | XMS REPORT | Encounter Summary ---
Author Author [facility] Organization [facility] Address Unknown Phone Unavailable Care Team Providers Care Teacher Emotionally Impaired Name Role Phone Phong Stephens MD PCP Unavailable Robby Rajan PET GROOMER Unavailable Phong Stephens MD PCP Unavailable Carlos Middleton PCP Lorraine Hathaway MD PCP Mhcf, External Provider PCP Unavailable Encounter Details Care Team Description Date Type Department Teri Rutledge, PET GROOMER [address] [place] [address] DIABETES MELLITUS TYPE II-UNCOMPL (Prima ry Dx) 11/08/2004 Outpatient [facility] Consol idated [address] [address] Social History Date Tobacco Use Types Packs/Day [...]
--- OUTSIDE RECORDS SUMMARY | 2019-10-21 19:01 | XMS REPORT | Encounter Summary ---
Author Author [facility] Organization [facility] Address Unknown Phone Unavailable Care Team Providers Care Pewter Fabricator Name Role Phone Phong Stephens MD PCP Unavailable Robby Rajan APRN Unavailable Phong Stephens MD PCP Unavailable Carlos Middleton PCP Lorraine Hathaway MD PCP Mhcf, External Provider PCP Unavailable Encounter Details Care Team Description Date Type Department Maurice Durbin MD [address] [place] [address] MIGRAINE NOS W/O MENTN INTRACTABLE (Prim kierra Dx) 01/27/2004 Outpatient [facility] Consol idated Historical [facility] [address] [place] [address] Social History Date Tobacco Use Types Packs/Day [...]
--- OUTSIDE RECORDS SUMMARY | 2019-10-21 19:01 | XMS REPORT | Encounter Summary ---
Author Author [facility] Organization [facility] Address Unknown Phone Unavailable Care Team Providers Care Event Crew Technician Name Role Phone Phong Stephens MD PCP Unavailable Robby Rajan APRN Unavailable Phong Stephens MD PCP Unavailable Carlos Middleton PCP Lorraine Hathaway MD PCP Mhcf, External Provider PCP Unavailable Encounter Details Care Team Description Date Type Department Kalyan Cruz ARNP [address] [place] [address] MIGRAINE NEC W/O MENTN INTRACTABLE (Prim kierra Dx) 06/15/2004 Emergency [facility] Emergency Department [address] [address] Social History Date Tobacco Use [...] of this encounter Visit Diagnoses Diagnosis Other forms of migraine, without mentio n of intractable migraine without mention of status migrainosus - Primary documented in this encounter
--- OUTSIDE RECORDS SUMMARY | 2019-10-21 19:01 | XMS REPORT | Encounter Summary ---
Author Author [facility] Organization [facility] Address Unknown Phone Unavailable Care Team Providers Care Event Promoter Name Role Phone Phong Stephens MD PCP Unavailable Robby Rajan APRN Unavailable Phong Stephens MD PCP Unavailable Carlos Middleton PCP Lorraine Hathaway MD PCP Mhcf, External Provider PCP Unavailable Encounter Details Care Team Description Date Type Department Reggie Ramirez MD NO ADDRESS ON FILE Abdominal pain, other specified site (Pr imary Dx) 12/31/[address] [facility] Surgery [address] [address] Social History Date Tobacco Use [...] this encounter Visit Diagnoses Diagnosis Abdominal pain, other specified site - Primary documented in this encounter
--- OUTSIDE RECORDS SUMMARY | 2019-10-21 19:01 | XMS REPORT | Encounter Summary ---
Author Author [facility] Organization [facility] Address Unknown Phone Unavailable Care Team Providers Care Vending Machine Repairer Name Role Phone Phong Stephens MD PCP Unavailable Robby Rajan APRN Unavailable Phong Stephens MD PCP Unavailable Carlos Middleton PCP Lorraine Hathaway MD PCP Mhcf, External Provider PCP Unavailable Encounter Details Care Team Description Date Type Department Maurice Durbin MD [address] [place] [address] ASTHMA UNSPECIFIED WITH EXAC (Primary Dx ) 02/18/2004 Outpatient [facility] Consol idated Historical [facility] [address] [place] [address] Social History Date Tobacco Use Types Packs/Day [...]
--- OUTSIDE RECORDS SUMMARY | 2019-10-21 19:01 | XMS REPORT | Encounter Summary ---
[...] Type Department Maurice Durbin MD [address] [place] [address] CHR MAXILLARY SINUSITIS (Primary Dx) 05/03/2004 Outpatient [facility] Consol idated [facility] [address] [place] [address] Social History Date Tobacco Use Types Packs/Day [...]
--- OUTSIDE RECORDS SUMMARY | 2019-10-21 19:01 | XMS REPORT | Encounter Summary ---
Author Author [facility] Organization [facility] Address Unknown Phone Unavailable Care Team Providers Care Clothing Sales Assistant Name Role Phone Phong Stephens MD PCP Unavailable Robby Rajan APRN Unavailable Phong Stephens MD PCP Unavailable Carlos Middleton PCP Lorraine Hathaway MD PCP Mhcf, External Provider PCP Unavailable Encounter Details Care Team Description Date Type Department Maurice Durbin MD [address] [place] [address] BACKACHE NOS (Primary Dx) 04/22/2004 Outpatient [facility] Consol idated Historical [facility] [address] [place] [address] Social History Date Tobacco Use Types Packs/Day [...]
--- OUTSIDE RECORDS SUMMARY | 2019-10-21 19:01 | XMS REPORT | Encounter Summary ---
Author Author [facility] Organization [facility] Address Unknown Phone Unavailable Care Team Providers Care Pen And Pencil Repairer Name Role Phone Phong Stephens MD PCP Unavailable Robby Rajan APRN Unavailable Phong Stephens MD PCP Unavailable Carlos Middleton PCP Lorraine Hathaway MD PCP Mhcf, External Provider PCP Unavailable Encounter Details Care Team Description Date Type Department Jr Yemi Nunn DO [address] [place] [id number] OTHER MALAISE AND FATIGUE (Primary Dx) 07/03/2004 Emergency [facility] Emergency Department [address] [address] Social History Date Tobacco Use [...] Associated Diag nosis CBC WITH MANUAL Routine 07/03/2004 DIFFERENTIAL 2:05 PM ENVELOPE PATTERNMAKER TSH Routine 07/03/2004 2:05 PM ENVELOPE PATTERNMAKER T4 FREE Routine 07/03/2004 2:05 PM ENVELOPE PATTERNMAKER LIPASE Routine 07/03/2004 2:05 PM ENVELOPE PATTERNMAKER AMYLASE Routine 07/03/2004 2:05 PM ENVELOPE PATTERNMAKER COMPREHENSIVE METABOLIC Routine 07/03/2004 PANEL 2:05 PM ENVELOPE PATTERNMAKER documented in this encounter Results * CBC WITH MANUAL DIFFERENTIAL (07/03/2004 2:05 PM ENVELOPE PATTERNMAKER) WBC 8.9 4.0 - 10.8 x10E3 INTERFACE SYSTEM RBC 4.82 4.2 - 5.4 x10E6 INTERFACE SYSTEM HEMOGLOBIN 15.1 12.0 - 16.0 g/dL INTERFACE SYSTEM HEMATOCRIT 44.2 37 - 47 % INTERFACE SYSTEM MCV 91.7 81.0 - 99.0 fL INTERFACE SYSTEM MCH 31.3 27 - 33 pg INTERFACE SYSTEM MCHC 34.2 32 - 35 g/dL INTERFACE SYSTEM RDW 13.9 12.1 - 16.7 % INTERFACE SYSTEM PLATELETS 189 130 - 400 x10E3 INTERFACE SYSTEM MPV 9.3 7.4 - 10.4 fL INTERFACE SYSTEM NEUTROPHILS 64.5 37.0 - 75.0 % INTERFACE SYSTEM MONOCYTES 6.7 0.0 - 12.0 % INTERFACE SYSTEM EOSINOPHILS 1.4 0.0 - 7.0 % INTERFACE SYSTEM BASOPHILS 1.2 0.0 - 2.5 % INTERFACE SYSTEM NEUTROPHIL 5.8 2.0 - 6.9 x10E3 INTERFACE ABSOLUTE SYSTEM MONOCYTE 0.6 0.0 - 0.9 x10E3 INTERFACE ABSOLUTE SYSTEM EOSINOPHIL 0.1 0.0 - 0.7 x10E3 INTERFACE ABSOLUTE SYSTEM BASOPHILS 0.1 0 - 0.2 x10E3 INTERFACE ABSOLUTE SYSTEM BASOPHILS 2 % INTERFACE SYSTEM EOSINOPHILS 1 % INTERFACE SYSTEM NEUTROPHILS, 60 % INTERFACE SEG SYSTEM LYMPHOCYTES 32 % INTERFACE SYSTEM MONOCYTE 5 % INTERFACE SYSTEM PLATELET EST. Normal INTERFACE SYSTEM WBC ESTIMATE Normal INTERFACE SYSTEM Specimen Performing Organization Address [facility] Ph one Number INTERFACE SYSTEM INTERFACE SYSTEM Refer to clinic/hospital department * LIPASE (07/03/2004 2:05 PM ENVELOPE PATTERNMAKER) LIPASE 197 114 - 286 U/L INTERFACE SYSTEM Specimen Performing Organization Address [facility] Ph one Number INTERFACE SYSTEM INTERFACE SYSTEM Refer to clinic/hospital department * TSH (07/03/2004 2:05 PM ENVELOPE PATTERNMAKER) TSH 1.49 0.34 - 4.82 uIU/ml INTERFACE SYSTEM Specimen Performing Organization Address [facility] Ph one Number INTERFACE SYSTEM INTERFACE SYSTEM Refer to clinic/hospital department * T4 FREE (07/03/2004 2:05 PM ENVELOPE PATTERNMAKER) T4 FREE 1.06 0.59 - 1.5 ng/dl INTERFACE SYSTEM Specimen Performing Organization Address [facility] one Number INTERFACE SYSTEM INTERFACE SYSTEM Refer to clinic/hospital department * AMYLASE (07/03/2004 2:05 PM ENVELOPE PATTERNMAKER) AMYLASE 25 25 - 115 IU/L INTERFACE SYSTEM Specimen Performing Organization Address [facility] one Number INTERFACE SYSTEM INTERFACE SYSTEM Refer to clinic/hospital department * COMPREHENSIVE METABOLIC PANEL (07/03/2004 2:05 PM ENVELOPE PATTERNMAKER) GLUCOSE 87 70 - 110 mg/dl INTERFACE SYSTEM BUN 16.0 7 - 20 mg/dl INTERFACE SYSTEM CREATININE 0.9 0.6 - 1.0 mg/dl INTERFACE SYSTEM BUN/CREAT RATIO 17.8 12 - 25 INTERFACE SYSTEM SODIUM 139 135 - 145 mmol/L INTERFACE SYSTEM POTASSIUM 4.3 3.5 - 5.1 mmol/L INTERFACE SYSTEM CHLORIDE 105 98 - 107 mmol/L INTERFACE SYSTEM CO2 24.4 22 - 31 mmol/L INTERFACE SYSTEM ANION GAP 14 4 - 20 INTERFACE SYSTEM CALCIUM 8.6 8.5 - 10.1 mg/dl INTERFACE SYSTEM ALBUMIN 4.2 3.4 - 5.0 g/dl INTERFACE SYSTEM TOTAL PROTEIN 7.2 6.4 - 8.2 g/dl INTERFACE SYSTEM GLOBULIN (CALC) 3.0 INTERFACE SYSTEM ALBUMIN/GLOBULI 1.4 INTERFACE N RATIO SYSTEM BILIRUBIN TOTAL 0.4 <1.1 mg/dl INTERFACE SYSTEM ALKALINE 127 50 - 136 IU/L INTERFACE PHOSPHATASE SYSTEM AST 16 10 - 40 IU/L INTERFACE SYSTEM ALT 43 25 - 70 IU/L INTERFACE SYSTEM Specimen Performing Organization Address [facility] one Number INTERFACE SYSTEM INTERFACE SYSTEM Refer to clinic/hospital department documented in this encounter Visit Diagnoses Diagnosis Other malaise and fatigue - Primary documented in this encounter
--- OUTSIDE RECORDS SUMMARY | 2019-10-21 19:01 | XMS REPORT | Encounter Summary ---
Author Author [facility] Organization [facility] Address Unknown Phone Unavailable Care Team Providers Care Clinical Programmer Name Role Phone Phong Stephens MD PCP Unavailable Robby Rajan APRN Unavailable Phong Stephens MD PCP Unavailable Carlos Middleton PCP Lorraine Hathaway MD PCP Mhcf, External Provider PCP Unavailable Encounter Details Care Team Description Date Type Department Maurice Durbin MD [address] [place] [address] ACUTE PHARYNGITIS (Primary Dx) 05/25/2004 Emergency [facility] Emergency Department [address] [address] Social History Date Tobacco Use [...] of this encounter Visit Diagnoses Diagnosis Acute pharyngitis - Primary documented in this encounter
--- OUTSIDE RECORDS SUMMARY | 2019-10-21 19:01 | XMS REPORT | Encounter Summary ---
Author Author [facility] Organization [facility] Address Unknown Phone Unavailable Care Team Providers Care Gear Shaver Set Up Operator Name Role Phone Phong Stephens MD PCP Unavailable Robby Rajan APRN Unavailable Phong Stephens MD PCP Unavailable Carlos Middleton PCP Lorraine Hathaway MD PCP Mhcf, External Provider PCP Unavailable Encounter Details Care Team Description Date Type Department Maurice Durbin MD [address] [place] [address] BACKACHE NOS (Primary Dx) 04/22/2004 Outpatient [facility] Historical [address] [address] Social History Date Tobacco Use [...]
--- OUTSIDE RECORDS SUMMARY | 2019-10-21 19:01 | XMS REPORT | Encounter Summary ---
Author Author [facility] Organization [facility] Address Unknown Phone Unavailable Care Team Providers Care Drug Worker Name Role Phone Phong Stephens MD PCP Unavailable Robby Rajan APRN Unavailable Phong Stephens MD PCP Unavailable Carlos Middleton PCP Lorraine Hathaway MD PCP Mhcf, External Provider PCP Unavailable Encounter Details Care Team Description Date Type Department Maurice Durbin MD [address] [place] [address] Hair diseases NEC (Primary Dx) 04/12/2004 Outpatient [facility] Consol idated Historical [facility] [address] [place] [address] Social History Date Tobacco Use Types Packs/Day Years Used Never Assessed Sex Assigned at Date Recorded Not on file Industry Job Start Date Occupation Not on file Not on file Not on file Travel End Travel History Travel Start No recent travel history available. documented as of this encounter Plan of Treatment Not on filedocumented as of this encounter Visit Diagnoses Diagnosis Hair diseases NEC - Primary Other specified disease of hair and mayur r follicles documented in this encounter
--- OUTSIDE RECORDS SUMMARY | 2019-10-21 19:01 | XMS REPORT | Encounter Summary ---
Author Author [facility] Organization [facility] Address Unknown Phone Unavailable Care Team Providers Care Flash Ranging Crewmember Name Role Phone Phong Stephens MD PCP Unavailable Robby Rajan APRN Unavailable Phong Stephens MD PCP Unavailable Carlos Middleton PCP Lorraine Hathaway MD PCP Mhcf, External Provider PCP Unavailable Encounter Details Care Team Description Date Type Department Kalyan Cruz ARNP [address] [place] [address] UNSPEC DENTAL CARIES (Primary Dx) 01/31/2004 Emergency [facility] Emergency Department [address] [address] Social History Date Tobacco Use [...] of this encounter Visit Diagnoses Diagnosis Unspecified dental caries - Primary documented in this encounter
--- OUTSIDE RECORDS SUMMARY | 2019-10-21 19:01 | XMS REPORT | Encounter Summary ---
Author Author [facility] Organization [facility] Address Unknown Phone Unavailable Care Team Providers Care Director Of Religious Activities Name Role Phone Phong Stephens MD PCP Unavailable Robby Rajan APRN Unavailable Phong Stephens MD PCP Unavailable Carlos Middleton PCP Lorraine Hathaway MD PCP Mhcf, External Provider PCP Unavailable Encounter Details Care Team Description Date Type Department LUMBAGO (Primary Dx) 04/22/2004 Emergency [facility] Emergency Department [address] [address] Social History Date Tobacco [...]
--- OUTSIDE RECORDS SUMMARY | 2019-10-21 19:01 | XMS REPORT | Encounter Summary ---
Author Author [facility] Organization [facility] Address Unknown Phone Unavailable Care Team Providers Care Weather Algorithm Scientist Name Role Phone Phong Stephens MD PCP Unavailable Robby Rajan APRN Unavailable Phong Stephens MD PCP Unavailable Carlos Middleton PCP Lorraine Hathaway MD PCP Mhcf, External Provider PCP Unavailable Encounter Details Care Team Description Date Type Department Maurice Durbin MD [address] [place] [address] PERS HX VENOUS THROMB/EMBOLISM (Primary Dx) 02/22/2004 Outpatient [facility] Consol idated Historical [facility] [address] [place] [address] Social History Date Tobacco Use Types Packs/Day [...] encounter Visit Diagnoses Diagnosis Personal history of venous thrombosis a nd embolism - Primary documented in this encounter
--- OUTSIDE RECORDS SUMMARY | 2019-10-21 19:01 | XMS REPORT | Encounter Summary ---
Author Author [facility] Organization [facility] Address Unknown Phone Unavailable Care Team Providers Care Tire And Lube Technician Name Role Phone Phong Stephens MD PCP Unavailable Robby Rajan APRN Unavailable Phong Stephens MD PCP Unavailable Carlos Middleton PCP Lorraine Hathaway MD PCP Mhcf, External Provider PCP Unavailable Encounter Details Care Team Description Date Type Department Reggie Ramirez MD NO ADDRESS ON FILE PERSISTENT VOMITING (Primary Dx) 01/02/2004 Inpatient [facility] Surgery [address] [address] Social History Date Tobacco [...] as of this encounter Visit Diagnoses Diagnosis Persistent vomiting - Primary documented in this encounter
--- OUTSIDE RECORDS SUMMARY | 2019-10-21 19:01 | XMS REPORT | Encounter Summary ---
Author Author [facility] Organization [facility] Address Unknown Phone Unavailable Care Team Providers Care Cancer Genetics Assistant Name Role Phone Phong Stephens MD PCP Unavailable Robby Rajan APRN Unavailable Phong Stephens MD PCP Unavailable Carlos Middleton PCP Lorraine Hathaway MD PCP Mhcf, External Provider PCP Unavailable Encounter Details Care Team Description Date Type Department CONTUSION OF WRIST (Primary Dx) 01/09/2004 Emergency [facility] Emergency Department [address] [address] Social History Date Tobacco [...] this encounter Visit Diagnoses Diagnosis Contusion of wrist - Primary documented in this encounter
--- OUTSIDE RECORDS SUMMARY | 2019-10-21 19:01 | XMS REPORT | Encounter Summary ---
Author Author [facility] Organization [facility] Address Unknown Phone Unavailable Care Team Providers Care Assistant Community Manager Name Role Phone Phong Stephens MD PCP Unavailable Robby Rajan APRN Unavailable Phong Stephens MD PCP Unavailable Carlos Middleton PCP Lorraine Hathaway MD PCP Mhcf, External Provider PCP Unavailable Encounter Details Care Team Description Date Type Department [facility] [address] [place] [address] IRRITABLE COLON (Primary Dx) 01/11/2004 Outpatient [facility] Consol idated Historical [address] [address] Social History Date Tobacco Use Types Packs/Day Years Used Never Assessed Sex Assigned at Date Recorded Not on file Industry Job Start Date Occupation Not on file Not on file Not on file Travel End Travel History Travel Start No recent travel history available. documented as of this encounter Plan of Treatment Not on filedocumented as of this encounter Visit Diagnoses Diagnosis Irritable bowel syndrome - Primary documented in this encounter
--- OUTSIDE RECORDS SUMMARY | 2019-10-21 19:01 | XMS REPORT | Encounter Summary ---
Author Author [facility] Organization [facility] Address Unknown Phone Unavailable Care Team Providers Care Electric Refrigerator Servicer Name Role Phone Phong Stephens MD PCP Unavailable Robby Rajan APRN Unavailable Phong Stephens MD PCP Unavailable Carlos Middleton PCP Lorraine Hathaway MD PCP Mhcf, External Provider PCP Unavailable Encounter Details Care Team Description Date Type Department Heydi Harrell MD [address] [place] [address] BACKACHE NOS (Primary Dx) 12/01/2003 Outpatient [facility] Consol idated Historical [facility] [address] [place] [address] Social History Date Tobacco Use Types Packs/Day [...]
--- OUTSIDE RECORDS SUMMARY | 2019-10-21 19:01 | XMS REPORT | Encounter Summary ---
Author Author [facility] Organization [facility] Address Unknown Phone Unavailable Care Team Providers Care Ict Customer Support Officer Name Role Phone Phong Stephens MD PCP Unavailable Robby Rajan APRN Unavailable Phong Stephens MD PCP Unavailable Carlos Middleton PCP Lorraine Hathaway MD PCP Mhcf, External Provider PCP Unavailable Encounter Details Care Team Description Date Type Department Kalyan Cruz ARNP [address] [place] [address] ACUTE PHARYNGITIS (Primary Dx) 05/22/2004 Emergency [facility] Emergency Department [address] [address] Social History Date Tobacco Use [...]
--- OUTSIDE RECORDS SUMMARY | 2019-10-21 19:01 | XMS REPORT | Encounter Summary ---
Author Author [facility] Organization [facility] Address Unknown Phone Unavailable Care Team Providers Care Element Setter Name Role Phone Phong Stephens MD PCP Unavailable Robby Rajan APRN Unavailable Phong Stephens MD PCP Unavailable Carlos Middleton PCP Lorraine Hathaway MD PCP Mhcf, External Provider PCP Unavailable Encounter Details Care Team Description Date Type Department Maurice Durbin MD [address] [place] [address] IDIO PERIPH NEURPTHY NOS (Primary Dx) 02/19/2004 Outpatient [facility] Consol idated Historical [facility] [address] [place] [address] Social History Date Tobacco Use Types Packs/Day [...]
--- OUTSIDE RECORDS SUMMARY | 2019-10-21 19:01 | XMS REPORT | Encounter Summary ---
Author Author [facility] Organization [facility] Address Unknown Phone Unavailable Care Team Providers Care Double Needle Operator Lockstitch Name Role Phone Phong Stephens MD PCP Unavailable Robby Rajan APRN Unavailable Phong Stephens MD PCP Unavailable Carlos Middleton PCP Lorraine Hathaway MD PCP Mhcf, External Provider PCP Unavailable Encounter Details Care Team Description Date Type Department ABDOMINAL PAIN UNSPEC SITE ( Primary Dx) 04/14/2004 Emergency [facility] Emergency Department [address] [address] Social History Date Tobacco Use [...]
--- OUTSIDE RECORDS SUMMARY | 2019-10-21 19:01 | XMS REPORT | Encounter Summary ---
Author Author [facility] Organization [facility] Address Unknown Phone Unavailable Care Team Providers Care Dental Professional Name Role Phone Phong Stephens MD PCP Unavailable Robby Rajan APRN Unavailable Phong Stephens MD PCP Unavailable Carlos Middleton PCP Lorraine Hathaway MD PCP [facility], External Provider PCP Unavailable Encounter Details Care Team Description Date Type Department Toxic effect venom (Primary Dx) 02/25/2004 Emergency [facility] Emergency Department [address] [address] Social History Date Tobacco Use [...] as of this encounter Visit Diagnoses Diagnosis Toxic effect venom - Primary Toxic effect of venom documented in this encounter
--- OUTSIDE RECORDS SUMMARY | 2019-10-21 19:01 | XMS REPORT | Encounter Summary ---
Author Author [facility] Organization [facility] Address Unknown Phone Unavailable Care Team Providers Care Comb Setter Name Role Phone Phong Stephens MD PCP Unavailable Robby Rajan APRN Unavailable Phong Stephens MD PCP Unavailable Carlos Middleton PCP Lorraine Hathaway MD PCP M[facility]cf, External Provider PCP Unavailable Encounter Details Care Team Description Date Type Department Maurice Durbin MD [address] [place] [address] DIABETES MELLITUS TYPE II-UNCOMPL (Prima ry Dx) 01/18/2004 Outpatient [facility] Consol idated Historical [facility] [address] [place] [address] Social History Date Tobacco Use Types Packs/Day [...]
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
--- OUTSIDE RECORDS SUMMARY | 2019-10-21 19:01 | XMS REPORT | Encounter Summary ---
Author Author [facility] Organization [facility] Address Unknown Phone Unavailable Care Team Providers Care Pattern Lease Inspector Name Role Phone Phong Stephens MD PCP Unavailable Robby Rajan APRN Unavailable Phong Stephens MD PCP Unavailable Carlos Middleton PCP Lorraine Hathaway MD PCP M[facility]cf, External Provider PCP Unavailable Encounter Details Care Team Description Date Type Department Lavell Bautista MD [address] [place] [address] ACUTE PHARYNGITIS (Primary Dx) 05/26/2004 Outpatient [facility] Consol [address] [address] Social History Date Tobacco Use Types Packs/Day [...]
--- OUTSIDE RECORDS SUMMARY | 2019-10-21 19:01 | XMS REPORT | Encounter Summary ---
Author Author [facility] Organization [facility] Address Unknown Phone Unavailable Care Team Providers Care Motor Vehicle Assembly Supervisor Name Role Phone Phong Stephens MD PCP Unavailable Robby Rajan APRN Unavailable Phong Stephens MD PCP Unavailable Carlos Middleton PCP Lorraine Hathaway MD PCP M[facility]cf, External Provider PCP Unavailable Encounter Details Care Team Description Date Type Department Jr Yemi Nunn, [address] [place] [phone] Pain in limb (Primary Dx) 01/06/2004 Emergency [facility] Emergency Department [address] [address] Social History Date Tobacco [...]
--- OUTSIDE RECORDS SUMMARY | 2019-10-21 19:01 | XMS REPORT | Encounter Summary ---
Author Author [facility] Organization [facility] Address Unknown Phone Unavailable Care Team Providers Care Optometric Technologist Name Role Phone Phong Stephens MD PCP Unavailable Robby Rajan APRN Unavailable Phong Stephens MD PCP Unavailable Carlos Middleton PCP Lorraine Hathaway MD PCP M[facility]cf, External Provider PCP Unavailable Encounter Details Care Team Description Date Type Department Lavell Bautista MD [address] [place] [address] No proc for reasons NEC (Primary Dx) 05/26/2004 Outpatient [facility] [address] [facility] MEDICAID Social History Date Tobacco Use Types [...]
--- OUTSIDE RECORDS SUMMARY | 2019-10-21 19:02 | XMS REPORT | Encounter Summary ---
Author Author [facility] Organization [facility] Address Unknown Phone Unavailable Care Team Providers Care Wafer Line Worker Name Role Phone Phong Stephens MD PCP Unavailable Robby Rajan APRN Unavailable Phong Stephens MD PCP Unavailable Carlos Middleton PCP Lorraine Hathaway MD PCP [facility]cf, External Provider PCP Unavailable Encounter Details Care Team Description Date Type Department Reggie Ramirez MD NO ADDRESS ON FILE ACUTE STRESS REACT NOS (Primary Dx) 08/25/2002 Outpatient [facility] Consol idated Historical [address] [address] Social History Date Tobacco Use Types Packs/Day Years Used Never Assessed Sex Assigned at Date Recorded Not on file Industry Job Start Date Occupation Not on file Not on file Not on file Travel End Travel History Travel Start No recent travel history available. documented as of this encounter Plan of Treatment Not on filedocumented as of this encounter Visit Diagnoses Diagnosis Unspecified acute reaction to stress - Primary documented in this encounter
--- OUTSIDE RECORDS SUMMARY | 2019-10-21 19:02 | XMS REPORT | Encounter Summary ---
Author Author [facility] Organization [facility] Address Unknown Phone Unavailable Care Team Providers Care Pupil Personnel Worker Name Role Phone Phong Stephens MD PCP Unavailable Robby Rajan APRN Unavailable Phong Stephens MD PCP Unavailable Carlos Middleton PCP Lorraine Hathaway MD PCP M[facility]cf, External Provider PCP Unavailable Encounter Details Care Team Description Date Type Department OTITIS MEDIA NOS (Primary Dx ) 05/30/2003 Emergency [facility] Emergency Department [address] [address] Social History Date Tobacco Use [...] of this encounter Visit Diagnoses Diagnosis Unspecified otitis media - Primary documented in this encounter
--- OUTSIDE RECORDS SUMMARY | 2019-10-21 19:02 | XMS REPORT | Encounter Summary ---
Author Author [facility] Organization [facility] Address Unknown Phone Unavailable Care Team Providers Care Annual Greenhouse Manager Name Role Phone Phong Stephens MD PCP Unavailable Robby Rajan APRN Unavailable Phong Stephens MD PCP Unavailable Carlos Middleton PCP Lorraine Hathaway MD PCP Mhcf, External Provider PCP Unavailable Encounter Details Care Team Description Date Type Department Jr Yemi Nunn, [address] [place] [phone] MIGRAINE NOS W/O MENTN INTRACTABLE (Prim kierra Dx) 10/25/2003 Emergency [facility] Emergency Department [address] [address] Social History Date Tobacco [...]
--- OUTSIDE RECORDS SUMMARY | 2019-10-21 19:02 | XMS REPORT | Encounter Summary ---
Author Author [facility] Organization [facility] Address Unknown Phone Unavailable Care Team Providers Care International Controller Name Role Phone Phong Stephens MD PCP Unavailable Robby Rajan APRN Unavailable Phong Stephens MD PCP Unavailable Carlos Middleton PCP Lorraine Hathaway MD PCP Mhcf, External Provider PCP Unavailable Encounter Details Care Team Description Date Type Department Heydi Harrell MD [address] [place] [address] Routine medical exam (Primary Dx) 09/14/2003 Outpatient [facility] Consol idated [facility] [address] [place] [address] Social History Date Tobacco Use Types Packs/Day [...]
--- OUTSIDE RECORDS SUMMARY | 2019-10-21 19:02 | XMS REPORT | Encounter Summary ---
Author Author [facility] Organization [facility] Address Unknown Phone Unavailable Care Team Providers Care Broom Handle Dipper Name Role Phone Phong Stephens MD PCP Unavailable Robby Rajan APRN Unavailable Phong Stephens MD PCP Unavailable Carlos Middleton PCP Lorraine Hathaway MD PCP Mhcf, External Provider PCP Unavailable Encounter Details Care Team Description Date Type Department Reggie Ramirez MD NO ADDRESS ON FILE Galactorrhea-nonobstet (Primary Dx) 07/27/2003 Outpatient [facility] Consol idated Historical [address] [address] Social History Date Tobacco Use Types Packs/Day Years Used Never Assessed Sex Assigned at Date Recorded Not on file Industry Job Start Date Occupation Not on file Not on file Not on file Travel End Travel History Travel Start No recent travel history available. documented as of this encounter Plan of Treatment Not on filedocumented as of this encounter Visit Diagnoses Diagnosis Galactorrhea-nonobstet - Primary Galactorrhea not associated with childb irth documented in this encounter
--- OUTSIDE RECORDS SUMMARY | 2019-10-21 19:02 | XMS REPORT | Encounter Summary ---
Author Author [facility] Organization [facility] Address Unknown Phone Unavailable Care Team Providers Care Hydraulic Auto Jack Mechanic Name Role Phone Phong Stephens MD PCP Unavailable Robby Rajan CUT OFF SAW TENDER METAL Unavailable Phong Stephens MD PCP Unavailable Carlos Middleton PCP Lorraine Hathaway MD PCP [facility], External Provider PCP Unavailable Encounter Details Care Team Description Date Type Department Teri Rutledge, CUT OFF SAW TENDER METAL [address] [place] [address] SPONTANEOUS ECCHYMOSES (Primary Dx) 11/10/2003 Outpatient [facility] [address] [facility] Historical MEDICAID Social History Date [...] as of this encounter Visit Diagnoses Diagnosis Spontaneous ecchymoses - Primary documented in this encounter
--- OUTSIDE RECORDS SUMMARY | 2019-10-21 19:02 | XMS REPORT | Encounter Summary ---
Author Author [facility] Organization [facility] Address Unknown Phone Unavailable Care Team Providers Care User Experience Researcher Name Role Phone Phong Stephens MD PCP Unavailable Robby Rajan APRN Unavailable Phong Stephens MD PCP Unavailable Carlos Middleton PCP Lorraine Hathaway MD PCP Mhcf, External Provider PCP Unavailable Encounter Details Care Team Description Date Type Department Reggie Ramirez MD NO ADDRESS ON FILE Depressive disorder NEC (Primary Dx) 10/07/[address] [facility] Consol idated Historical [address] [address] Social History Date Tobacco Use Types Packs/Day Years Used Never Assessed Sex Assigned at Date Recorded Not on file Industry Job Start Date Occupation Not on file Not on file Not on file Travel End Travel History Travel Start No recent travel history available. documented as of this encounter Plan of Treatment Not on filedocumented as of this encounter Visit Diagnoses Diagnosis Depressive disorder NEC - Primary Depressive disorder, not elsewhere clas sified documented in this encounter
--- OUTSIDE RECORDS SUMMARY | 2019-10-21 19:02 | XMS REPORT | Encounter Summary ---
Author Author [facility] Organization [facility] Address Unknown Phone Unavailable Care Team Providers Care Chief Financial Officer Name Role Phone Phong Stephens MD PCP Unavailable Robby Rajan APRN Unavailable Phong Stephens MD PCP Unavailable Carlos Middleton PCP Lorraine Hathaway MD PCP Mhcf, External Provider PCP Unavailable Encounter Details Care Team Description Date Type Department Jaron Hoang MD [address] [place] [address] CONTUSION OF HAND(S) (Primary Dx) 11/26/2002 Emergency [facility] Emergency Department [address] [address] Social History Date Tobacco Use [...] this encounter Visit Diagnoses Diagnosis Contusion of hand(s) - Primary documented in this encounter
--- OUTSIDE RECORDS SUMMARY | 2019-10-21 19:02 | XMS REPORT | Encounter Summary ---
Author Author [facility] Organization [facility] Address Unknown Phone Unavailable Care Team Providers Care Dye Range Tender Name Role Phone Phong Stephens MD PCP Unavailable Robby Rajan APRN Unavailable Phong Stephens MD PCP Unavailable Carlos Middleton PCP Lorraine Hathaway MD PCP Mhcf, External Provider PCP Unavailable Encounter Details Care Team Description Date Type Department Sukhi rGey [phone] MYALGIA AND MYOSITIS NOS (Primary Dx) 03/16/2003 Outpatient [facility] [address] [address] Social History Date Tobacco Use Types Packs/Day [...]
--- OUTSIDE RECORDS SUMMARY | 2019-10-21 19:02 | XMS REPORT | Encounter Summary ---
Author Author [facility] Organization [facility] Address Unknown Phone Unavailable Care Team Providers Care Sheet Folder Name Role Phone Phong Stephens MD PCP Unavailable Robby Rajan APRN Unavailable Phong Stephens MD PCP Unavailable Carlos Middleton PCP Lorraine Hathaway MD PCP Mhcf, External Provider PCP Unavailable Encounter Details Care Team Description Date Type Department Robyb Nice, DO [address] [facility] [address] [place] [address] HEADACHE (Primary Dx) 02/28/2003 Emergency [facility] Emergency Department [address] [address] Social History Date Tobacco [...]
--- OUTSIDE RECORDS SUMMARY | 2019-10-21 19:02 | XMS REPORT | Encounter Summary ---
Author Author [facility] Organization [facility] Address Unknown Phone Unavailable Care Team Providers Care Route Clerk Name Role Phone Phong Stephens MD PCP Unavailable Robby Rajan APRN Unavailable Phong Stephens MD PCP Unavailable Carlos Middleton PCP Lorraine Hathaway MD PCP Mhcf, External Provider PCP Unavailable Encounter Details Care Team Description Date Type Department Lavell Bautista MD [address] [place] [address] Pain in limb (Primary Dx) 12/12/[address] [facility] Consol [address] [address] Social History Date Tobacco Use Types Packs/Day [...]
--- OUTSIDE RECORDS SUMMARY | 2019-10-21 19:02 | XMS REPORT | Encounter Summary ---
Author Author [facility] Organization [facility] Address Unknown Phone Unavailable Care Team Providers Care Gaming Surveillance Observer Name Role Phone Phong Stephens MD PCP Unavailable Robby Rajan APRN Unavailable Phong Stephens MD PCP Unavailable Carlos Middleton PCP Lorraine Hathaway MD PCP M[facility]cf, External Provider PCP Unavailable Encounter Details Care Team Description Date Type Department SPRAIN OF WRIST NOS (Primary Dx) 11/28/2003 Emergency [facility] Emergency Department [address] [address] Social History Date Tobacco [...] this encounter Visit Diagnoses Diagnosis Sprain of wrist, unspecified site - Sissy shay documented in this encounter
--- OUTSIDE RECORDS SUMMARY | 2019-10-21 19:02 | XMS REPORT | Encounter Summary ---
Author Author [facility] Organization [facility] Address Unknown Phone Unavailable Care Team Providers Care Radar Operator Name Role Phone Phong Stephens MD PCP Unavailable Robby Rajan SUPERVISING EDITOR TRAILER Unavailable Phong Stephens MD PCP Unavailable Carlos Middleton PCP Lorraine Hathaway MD PCP Mhcf, External Provider PCP Unavailable Encounter Details Care Team Description Date Type Department Self, Bubba Hsieh MD [address] [place] [address] EDEMA (Primary Dx) 09/16/2003 Outpatient [facility] Consol idated Historical [facility] [address] [place] [address] Social History Date Tobacco Use Types Packs/Day [...]
--- OUTSIDE RECORDS SUMMARY | 2019-10-21 19:02 | XMS REPORT | Encounter Summary ---
Author Author [facility] Organization [facility] Address Unknown Phone Unavailable Care Team Providers Care President [place] Name Role Phone Phong Stephens MD PCP Unavailable Robby Rajan APRN Unavailable Phong Stephens MD PCP Unavailable Carlos Middleton PCP Lorraine Hathaway MD PCP Mhcf, External Provider PCP Unavailable Encounter Details Care Team Description Date Type Department Heydi Harrell MD [address] [place] [address] BIPOLAR AFFECTIVE NOS (Primary Dx) 12/19/2002 Outpatient [facility] Consol idated Historical [facility] [address] [place] [address] Social History Date Tobacco Use Types Packs/Day Years Used Never Assessed Sex Assigned at Date Recorded Not on file Industry Job Start Date Occupation Not on file Not on file Not on file Travel End Travel History Travel Start No recent travel history available. documented as of this encounter Plan of Treatment Not on filedocumented as of this encounter Visit Diagnoses Diagnosis Bipolar I disorder, most recent episode (or current) unspecified - Primary documented in this encounter
--- OUTSIDE RECORDS SUMMARY | 2019-10-21 19:02 | XMS REPORT | Encounter Summary ---
Author Author [facility] Organization [facility] Address Unknown Phone Unavailable Care Team Providers Care Produce Weigher Name Role Phone Phong Stephens MD PCP Unavailable Robby Rajan MANAGER HEART FAILURE Unavailable Phong Stephens MD PCP Unavailable Carlos Middleton PCP Lorraine Hathaway MD PCP Mhcf, External Provider PCP Unavailable Encounter Details Care Team Description Date Type Department Teri Rutledge, MANAGER HEART FAILURE [address] [place] [address] BIPOLAR AFFECTIVE NOS (Primary Dx) 09/21/2003 Outpatient [facility] Consol [address] [address] Social History Date Tobacco Use Types Packs/Day [...]
--- OUTSIDE RECORDS SUMMARY | 2019-10-21 19:02 | XMS REPORT | Encounter Summary ---
Author Author [facility] Organization [facility] Address Unknown Phone Unavailable Care Team Providers Care Material Carrier Name Role Phone Phong Stephens MD PCP Unavailable Robby Rajan APRN Unavailable Phong Stephens MD PCP Unavailable Carlos Middleton PCP Lorraine Hathaway MD PCP Mhcf, External Provider PCP Unavailable Encounter Details Care Team Description Date Type Department HEADACHE (Primary Dx) 05/14/2003 Emergency [facility] Emergency Department [address] [address] Social History Date Tobacco Use [...]
--- OUTSIDE RECORDS SUMMARY | 2019-10-21 19:02 | XMS REPORT | Encounter Summary ---
Author Author [facility] Organization [facility] Address Unknown Phone Unavailable Care Team Providers Care Waste Water Plant Operator Name Role Phone Phong Stephens MD PCP Unavailable Robby Rajan BODY WIRER Unavailable Phong Stephens MD PCP Unavailable Carlos Middleton PCP Lorraine Hathaway MD PCP Mhcf, External Provider PCP Unavailable Encounter Details Care Team Description Date Type Department Teri Rutledge, BODY WIRER [address] [place] [address] Joint pain-l/leg (Primary Dx) 09/21/2003 Outpatient [facility] [address] [address] Social History Date Tobacco Use [...]
--- OUTSIDE RECORDS SUMMARY | 2019-10-21 19:02 | XMS REPORT | Encounter Summary ---
Author Author [facility] Organization [facility] Address Unknown Phone Unavailable Care Team Providers Care Middle School English Teacher Name Role Phone Phong Stephens MD PCP Unavailable Robby Rajan APRN Unavailable Phong Stephens MD PCP Unavailable Carlos Middleton PCP Lorraine Hathaway MD PCP Mhcf, External Provider PCP Unavailable Encounter Details Care Team Description Date Type Department Reggie Ramirez MD NO ADDRESS ON FILE Depressive disorder NEC (Primary Dx) 11/01/2002 Outpatient [facility] Consol idated [address] [address] Social History Date Tobacco Use Types Packs/Day [...]
--- OUTSIDE RECORDS SUMMARY | 2019-10-21 19:02 | XMS REPORT | Encounter Summary ---
Author Author [facility] Organization [facility] Address Unknown Phone Unavailable Care Team Providers Care Strategic Planning Manager Name Role Phone Phong Stephens MD PCP Unavailable Robby Rajan APRN Unavailable Phong Stephens MD PCP Unavailable Carlos Middleton PCP Lorraine Hathaway MD PCP Mhcf, External Provider PCP Unavailable Encounter Details Care Team Description Date Type Department Reggie Ramirez MD NO ADDRESS ON FILE Galactorrhea-nonobstet (Primary Dx) 07/27/2003 Outpatient [facility] [address] [facility] [...]
--- OUTSIDE RECORDS SUMMARY | 2019-10-21 19:02 | XMS REPORT | Encounter Summary ---
Author Author [facility] Organization [facility] Address Unknown Phone Unavailable Care Team Providers Care Senior C Web Developer Name Role Phone Phong Stephens MD PCP Unavailable Robby Rajan VIRTUAL ASSISTANT FOR ADVERTISERS Unavailable Phong Stephens MD PCP Unavailable Carlos Middleton PCP Lorraine Hathaway MD PCP Mhcf, External Provider PCP Unavailable Encounter Details Care Team Description Date Type Department Teri Rutledge, VIRTUAL ASSISTANT FOR ADVERTISERS [address] [place] [address] SPONTANEOUS ECCHYMOSES (Primary Dx) 11/10/2003 Outpatient [facility] Consol idated Historical [address] [address] Social History Date Tobacco Use Types Packs/Day [...]
--- OUTSIDE RECORDS SUMMARY | 2019-10-21 19:02 | XMS REPORT | Encounter Summary ---
Author Author [facility] Organization [facility] Address Unknown Phone Unavailable Care Team Providers Care Linen Supply Load Builder Name Role Phone Phong Stephens MD PCP Unavailable Robby Rajan APRN Unavailable Phong Stephens MD PCP Unavailable Carlos Middleton PCP Lorraine Hathaway MD PCP M[facility]cf, External Provider PCP Unavailable Encounter Details Care Team Description Date Type Department LUMBAGO (Primary Dx) 05/21/2003 Emergency [facility] Emergency Department [address] [address] Social History Date Tobacco [...]
--- OUTSIDE RECORDS SUMMARY | 2019-10-21 19:02 | XMS REPORT | Encounter Summary ---
Author Author [facility] Organization [facility] Address Unknown Phone Unavailable Care Team Providers Care Pcb Designer Name Role Phone Phong Stephens MD PCP Unavailable Robby Rajan APRN Unavailable Phong Stephens MD PCP Unavailable Carlos Middleton PCP Lorraine Hathaway MD PCP Mhcf, External Provider PCP Unavailable Encounter Details Care Team Description Date Type Department DEPRESS PSYCHOSIS-UNSPEC (Pr imary Dx) 11/01/2002 Emergency [facility] Emergency Department [address] [address] Social History Date Tobacco [...] as of this encounter Visit Diagnoses Diagnosis Major depressive disorder, single episo de, unspecified - Primary documented in this encounter
--- OUTSIDE RECORDS SUMMARY | 2019-10-21 19:02 | XMS REPORT | Encounter Summary ---
Author Author [facility] Organization [facility] Address Unknown Phone Unavailable Care Team Providers Care Torch Burner Name Role Phone Phong Stephens MD PCP Unavailable Robby Rajan APRN Unavailable Phong Stephens MD PCP Unavailable Carlos Middleton PCP Lorraine Hathaway MD PCP [facility], External Provider PCP Unavailable Encounter Details Care Team Description Date Type Department Reggie Ramirez MD NO ADDRESS ON FILE Panic disorder (Primary Dx) 10/13/2002 Outpatient [facility] Consol idated [address] [address] Social History Date Tobacco Use Types Packs/Day Years Used Never Assessed Sex Assigned at Date Recorded Not on file Industry Job Start Date Occupation Not on file Not on file Not on file Travel End Travel History Travel Start No recent travel history available. documented as of this encounter Plan of Treatment Not on filedocumented as of this encounter Visit Diagnoses Diagnosis Panic disorder - Primary Panic disorder without agoraphobia documented in this encounter
--- OUTSIDE RECORDS SUMMARY | 2019-10-21 19:02 | XMS REPORT | Encounter Summary ---
Author Author [facility] Organization [facility] Address Unknown Phone Unavailable Care Team Providers Care Entry Clerk Name Role Phone Phong Stephens MD PCP Unavailable Robby Rajan APRN Unavailable Phong Stephens MD PCP Unavailable Carlos Middleton PCP Lorraine Hathaway MD PCP [facility], External Provider PCP Unavailable Encounter Details Care Team Description Date Type Department Reggie Ramirez MD NO ADDRESS ON FILE MYALGIA AND MYOSITIS NOS (Primary Dx) 02/04/2003 Outpatient [facility] Consol idated Historical [address] [address] Social History Date Tobacco Use Types Packs/Day [...]
--- OUTSIDE RECORDS SUMMARY | 2019-10-21 19:02 | XMS REPORT | Encounter Summary ---
Author Author [facility] Organization [facility] Address Unknown Phone Unavailable Care Team Providers Care Dry Kiln Operator Name Role Phone Phong Stephens MD PCP Unavailable Robby Rajan APRN Unavailable Phong Stephens MD PCP Unavailable Carlos Middleton PCP Lorraine Hathaway MD PCP [facility], External Provider PCP Unavailable Encounter Details Care Team Description Date Type Department Reggie Ramirez MD NO ADDRESS ON FILE Joint pain-unspec (Primary Dx) 09/11/2002 Outpatient [facility] Consol idated Historical [address] [address] Social History Date Tobacco Use Types Packs/Day [...]
--- OUTSIDE RECORDS SUMMARY | 2019-10-21 19:02 | XMS REPORT | Encounter Summary ---
Author Author [facility] Organization [facility] Address Unknown Phone Unavailable Care Team Providers Care Career Professional Name Role Phone Phong Stephens MD PCP Unavailable Robby Rajan APRN Unavailable Phong Stephens MD PCP Unavailable Carlos Middleton PCP Lorraine Hathaway MD PCP [facility], External Provider PCP Unavailable Encounter Details Care Team Description Date Type Department Reggie Ramirez MD NO ADDRESS ON FILE ACUTE LARYNGITIS WO OBSTRUCTION (Primary Dx) 04/13/2003 Outpatient [facility] Consol idated Historical [address] [address] Social History Date Tobacco Use Types Packs/Day [...]
--- OUTSIDE RECORDS SUMMARY | 2019-10-21 19:02 | XMS REPORT | Encounter Summary ---
Author Author [facility] Organization [facility] Address Unknown Phone Unavailable Care Team Providers Care Hand Router Operator Name Role Phone Phong Stephens MD PCP Unavailable Robby Rajan PACU NURSE Unavailable Phong Stephens MD PCP Unavailable Carlos Middleton PCP Lorraine Hathaway MD PCP [facility], External Provider PCP Unavailable Encounter Details Care Team Description Date Type Department Teri Rutledge, PACU NURSE [address] [place] [address] Skin sensation disturb (Primary Dx) 09/23/2002 Outpatient [facility] Consol idated [address] [address] Social History Date Tobacco Use Types Packs/Day Years Used Never Assessed Sex Assigned at Date Recorded Not on file Industry Job Start Date Occupation Not on file Not on file Not on file Travel End Travel History Travel Start No recent travel history available. documented as of this encounter Plan of Treatment Not on filedocumented as of this encounter Visit Diagnoses Diagnosis Skin sensation disturb - Primary Disturbance of skin sensation documented in this encounter
--- OUTSIDE RECORDS SUMMARY | 2019-10-21 19:02 | XMS REPORT | Encounter Summary ---
Author Author [facility] Organization [facility] Address Unknown Phone Unavailable Care Team Providers Care Beater Tender Name Role Phone Phong Stephens MD PCP Unavailable Robby Rajan APRN Unavailable Phong Stephens MD PCP Unavailable Carlos Middleton PCP Lorraine Hathaway MD PCP [facility], External Provider PCP Unavailable Encounter Details Care Team Description Date Type Department Jr Yemi Nunn DO [id number] [place] [id number] SUNBURN (Primary Dx) 11/04/2003 Emergency [facility] Emergency Department [address] [address] Social History Date Tobacco Use [...] as of this encounter Visit Diagnoses Diagnosis Sunburn - Primary documented in this encounter
--- OUTSIDE RECORDS SUMMARY | 2019-10-21 19:03 | XMS REPORT | Encounter Summary ---
Author Author [facility] Organization [facility] Address Unknown Phone Unavailable Care Team Providers Care Prism Measurer Name Role Phone Phong Stephens MD PCP Unavailable Robby Rajan APRN Unavailable Phong Stephens MD PCP Unavailable Carlos Middleton PCP Lorraine Hathaway MD PCP [facility], External Provider PCP Unavailable Encounter Details Care Team Description Date Type Department Reggie Ramirez MD NO ADDRESS ON FILE ACUTE INFECTION OF PINNA (Primary Dx) 05/21/2001 Outpatient [facility] Consol idated Historical [address] [address] Social History Date Tobacco Use Types Packs/Day Years Used Never Assessed Sex Assigned at Date Recorded Not on file Industry Job Start Date Occupation Not on file Not on file Not on file Travel End Travel History Travel Start No recent travel history available. documented as of this encounter Plan of Treatment Not on filedocumented as of this encounter Visit Diagnoses Diagnosis Acute infection of pinna - Primary documented in this encounter
--- OUTSIDE RECORDS SUMMARY | 2019-10-21 19:03 | XMS REPORT | Encounter Summary ---
Author Author [facility] Organization [facility] Address Unknown Phone Unavailable Care Team Providers Care Application Systems Engineer Name Role Phone Phong Stephens MD PCP Unavailable Robby Rajan APRN Unavailable Phong Stephens MD PCP Unavailable Carlos Middleton PCP Lorraine Hathaway MD PCP [facility], External Provider PCP Unavailable Encounter Details Care Team Description Date Type Department El Gertrudis Juarez MD NO ADDRESS ON FILE BACKACHE NOS (Primary Dx) 10/16/2001 Outpatient [facility] Historical [address] [address] Social History Date Tobacco Use Types [...]
--- OUTSIDE RECORDS SUMMARY | 2019-10-21 19:03 | XMS REPORT | Encounter Summary ---
Author Author [facility] Organization [facility] Address Unknown Phone Unavailable Care Team Providers Care Professor Of Public Administration Name Role Phone Phong Stephens MD PCP Unavailable Robby Rajan APRN Unavailable Phong Stephens MD PCP Unavailable Carlos Middleton PCP Lorraine Hathaway MD PCP [facility], External Provider PCP Unavailable Encounter Details Care Team Description Date Type Department El Gertrudis Juarez MD NO ADDRESS ON FILE BACKACHE NOS (Primary Dx) 10/31/2001 Outpatient [facility] Historical [address] [address] Social History Date Tobacco [...]
--- OUTSIDE RECORDS SUMMARY | 2019-10-21 19:03 | XMS REPORT | Encounter Summary ---
Author Author [facility] Organization [facility] Address Unknown Phone Unavailable Care Team Providers Care Adult Care Manager Name Role Phone Phong Stephens MD PCP Unavailable Robby Rajan APRN Unavailable Phong Stephens MD PCP Unavailable Carlos Middleton PCP Lorraine Hathaway MD PCP [facility], External Provider PCP Unavailable Encounter Details Care Team Description Date Type Department Reggie Ramirez MD NO ADDRESS ON FILE 12/20/2001 Outpatient [facility] Consol idated Historical [address] [address] Social History Date Tobacco Use Types Packs/Day [...]
--- OUTSIDE RECORDS SUMMARY | 2019-10-21 19:03 | XMS REPORT | Encounter Summary ---
Author Author [facility] Organization [facility] Address Unknown Phone Unavailable Care Team Providers Care Kennel Technician Name Role Phone Phong Stephens MD PCP Unavailable Robby Rajan APRN Unavailable Phong Stephens MD PCP Unavailable Carlos Middleton PCP Lorraine Hathaway MD PCP [facility], External Provider PCP Unavailable Encounter Details Care Team Description Date Type Department Reggie Ramirez MD NO ADDRESS ON FILE 01/16/2002 Outpatient [facility] Consol idated Historical [address] [address] Social History Date Tobacco Use Types Packs/Day [...]
--- OUTSIDE RECORDS SUMMARY | 2019-10-21 19:03 | XMS REPORT | Encounter Summary ---
Author Author [facility] Organization [facility] Address Unknown Phone Unavailable Care Team Providers Care Signing Agent Name Role Phone Phong Stephens MD PCP Unavailable Robby Rajan APRN Unavailable Phong Stephens MD PCP Unavailable Carlos Middleton PCP Lorraine Hathaway MD PCP [facility], External Provider PCP Unavailable Encounter Details Care Team Description Date Type Department Reggie Ramirez MD NO ADDRESS ON FILE ESOPHAGEAL REFLUX (Primary Dx) 09/28/2001 Inpatient Historical Social History Date Tobacco Use [...] as of this encounter Visit Diagnoses Diagnosis Esophageal reflux - Primary documented in this encounter
--- OUTSIDE RECORDS SUMMARY | 2019-10-21 19:03 | XMS REPORT | Encounter Summary ---
Author Author [facility] Organization [facility] Address Unknown Phone Unavailable Care Team Providers Care River Pilot Name Role Phone Phong Stephens MD PCP Unavailable Robby Rajan APRN Unavailable Phong Stephens MD PCP Unavailable Carlos Middleton PCP Lorraine Hathaway MD PCP [facility], External Provider PCP Unavailable Encounter Details Care Team Description Date Type Department OTALGIA NOS (Primary Dx) 05/18/2001 Emergency [facility] Emergency Department [address] [address] Social History Date Tobacco Use [...] as of this encounter Visit Diagnoses Diagnosis Otalgia, unspecified - Primary documented in this encounter
--- OUTSIDE RECORDS SUMMARY | 2019-10-21 19:03 | XMS REPORT | Encounter Summary ---
Author Author [facility] Organization [facility] Address Unknown Phone Unavailable Care Team Providers Care Buffet Waiter/Waitress Name Role Phone Phong Stephens MD PCP Unavailable Robby Rajan APRN Unavailable Phong Stephens MD PCP Unavailable Carlos Middleton PCP Lorraine Hathaway MD PCP [facility], External Provider PCP Unavailable Encounter Details Care Team Description Date Type Department Reggie Ramirez MD NO ADDRESS ON FILE 10/10/2001 Outpatient [facility] Consol idated Historical [address] [address] Social History Date Tobacco Use Types Packs/Day [...]
--- OUTSIDE RECORDS SUMMARY | 2019-10-21 19:03 | XMS REPORT | Encounter Summary ---
Author Author [facility] Organization [facility] Address Unknown Phone Unavailable Care Team Providers Care Bench Press Operator Name Role Phone Phong Stephens MD PCP Unavailable Robby Rajan APRN Unavailable Phong Stephens MD PCP Unavailable Carlos Middleton PCP Lorraine Hathaway MD PCP [facility], External Provider PCP Unavailable Encounter Details Care Team Description Date Type Department Reggie Ramirez MD NO ADDRESS ON FILE BACKACHE NOS (Primary Dx) 06/20/2001 Outpatient [facility] Historical MEDICAID Social History Date Tobacco Use [...]
--- OUTSIDE RECORDS SUMMARY | 2019-10-21 19:03 | XMS REPORT | Encounter Summary ---
Author Author [facility] Organization [facility] Address Unknown Phone Unavailable Care Team Providers Care Urgent Care Name Role Phone Phong Stephens MD PCP Unavailable Robby Rajan APRN Unavailable Phong Stephens MD PCP Unavailable Carlos Middleton PCP Lorraine Hathaway MD PCP [facility], External Provider PCP Unavailable Encounter Details Care Team Description Date Type Department Reggie Ramirez MD NO ADDRESS ON FILE JOINT PAIN-ZOË JTS (Primary Dx) 07/24/2002 Outpatient [facility] Consol idated Historical [address] [address] Social History Date Tobacco Use Types Packs/Day [...] encounter Visit Diagnoses Diagnosis Pain in joint, multiple sites - Primary documented in this encounter
--- OUTSIDE RECORDS SUMMARY | 2019-10-21 19:03 | XMS REPORT | Encounter Summary ---
Author Author [facility] Organization [facility] Address Unknown Phone Unavailable Care Team Providers Care Eye Care Professional Name Role Phone Phong Stephens MD PCP Unavailable Robby Rajan APRN Unavailable Phong Stephens MD PCP Unavailable Carlos Middleton PCP Lorraine Hathaway MD PCP [facility], External Provider PCP Unavailable Encounter Details Care Team Description Date Type Department Reggie Ramirez MD NO ADDRESS ON FILE 09/23/2001 Outpatient [facility] Consol idated Historical [address] [address] Social History Date Tobacco Use Types Packs/Day [...]
--- OUTSIDE RECORDS SUMMARY | 2019-10-21 19:03 | XMS REPORT | Encounter Summary ---
Author Author [facility] Organization [facility] Address Unknown Phone Unavailable Care Team Providers Care Doll Wigs Hackler Name Role Phone Phong Stephens MD PCP Unavailable Robby Rajan OPERATIONS ADVISOR Unavailable Phong Stephens MD PCP Unavailable Carlos Middleton PCP Lorraine Hathaway MD PCP [facility], External Provider PCP Unavailable Encounter Details Care Team Description Date Type Department Self, Bubba Hsieh MD [address] [place] [phone] Chest Pain NEC (Primary Dx) 09/30/2001 Outpatient [facility] ED Historical Social History Date Tobacco Use Types [...] of this encounter Visit Diagnoses Diagnosis Chest Pain NEC - Primary Other chest pain documented in this encounter
--- OUTSIDE RECORDS SUMMARY | 2019-10-21 19:03 | XMS REPORT | Encounter Summary ---
Author Author [facility] Organization [facility] Address Unknown Phone Unavailable Care Team Providers Care Regional Intermodal Truck Driver Name Role Phone Phong Stephens MD PCP Unavailable Robby Rajan APRN Unavailable Phong Stephens MD PCP Unavailable Carlos Middleton PCP Lorraine Hathaway MD PCP [facility], External Provider PCP Unavailable Encounter Details Care Team Description Date Type Department Sophia Dubon, DPM [address] [place] [address] Pain in limb (Primary Dx) 06/20/2002 Outpatient [facility] XRAY LAB Historical Social History Date Tobacco Use Types [...]
--- OUTSIDE RECORDS SUMMARY | 2019-10-21 19:03 | XMS REPORT | Encounter Summary ---
Author Author [facility] Organization [facility] Address Unknown Phone Unavailable Care Team Providers Care Infrastructure Tech Name Role Phone Phong Stephens MD PCP Unavailable Robby Rajan APRN Unavailable Phong Stephens MD PCP Unavailable Carlos Middleton PCP Lorraine Hathaway MD PCP [facility], External Provider PCP Unavailable Encounter Details Care Team Description Date Type Department Reggie Ramirez MD NO ADDRESS ON FILE 04/10/2002 Outpatient [facility] [address] RE[facility] Historical Social History Date Tobacco Use [...]
--- OUTSIDE RECORDS SUMMARY | 2019-10-21 19:03 | XMS REPORT | Encounter Summary ---
Author Author [facility] Organization [facility] Address Unknown Phone Unavailable Care Team Providers Care Enterprise Mobility Architect Name Role Phone Phong Stephens MD PCP Unavailable Robby Rajan APRN Unavailable Phong Stephens MD PCP Unavailable Carlos Middleton PCP Lorraine Hathaway MD PCP [facility], External Provider PCP Unavailable Encounter Details Care Team Description Date Type Department Reggie Ramirez MD NO ADDRESS ON FILE 07/24/2002 Outpatient [facility] [address] REF [facility] [...]
--- OUTSIDE RECORDS SUMMARY | 2019-10-21 19:03 | XMS REPORT | Encounter Summary ---
Author Author [facility] Organization [facility] Address Unknown Phone Unavailable Care Team Providers Care Process Stripper Name Role Phone Phong Stephens MD PCP Unavailable Robby Rajan APRN Unavailable Phong Stephens MD PCP Unavailable Carlos Middleton PCP Lorraine Hathaway MD PCP [facility], External Provider PCP Unavailable Encounter Details Care Team Description Date Type Department Lavell Bautista MD [address] [place] [address] CHEST PAIN NOS (Primary Dx) 09/30/2001 Outpatient [facility] Imaging [address] [address] Social History Date Tobacco [...]
--- OUTSIDE RECORDS SUMMARY | 2019-10-21 19:03 | XMS REPORT | Encounter Summary ---
Author Author [facility] Organization [facility] Address Unknown Phone Unavailable Care Team Providers Care Automotive Fleet Supervisor Name Role Phone Phong Stephens MD PCP Unavailable Robby Rajan APRN Unavailable Phong Stephens MD PCP Unavailable Carlos Middleton PCP Lorraine Hathaway MD PCP [facility], External Provider PCP Unavailable Encounter Details Care Team Description Date Type Department Lavell Bautista MD [address] [place] [address] 09/24/2001 Outpatient [facility] Consol [address] [address] Social History Date Tobacco Use Types Packs/Day [...]
--- OUTSIDE RECORDS SUMMARY | 2019-10-21 19:03 | XMS REPORT | Encounter Summary ---
Author Author [facility] Organization [facility] Address Unknown Phone Unavailable Care Team Providers Care Department Store General Manager Name Role Phone Phong Stephens MD PCP Unavailable Robby Rajan APRN Unavailable Phong Stephens MD PCP Unavailable Carlos Middleton PCP Lorraine Hathaway MD PCP [facility], External Provider PCP Unavailable Encounter Details Care Team Description Date Type Department Reggie Ramirez MD NO ADDRESS ON FILE BACKACHE NOS (Primary Dx) 09/23/2001 Outpatient [facility] Historical MEDICAID Social [...]
--- OUTSIDE RECORDS SUMMARY | 2019-10-21 19:03 | XMS REPORT | Encounter Summary ---
Author Author [facility] Organization [facility] Address Unknown Phone Unavailable Care Team Providers Care Rn Med Surg Name Role Phone Phong Stephens MD PCP Unavailable Robby Rajan APRN Unavailable Phong Stephens MD PCP Unavailable Carlos Middleton PCP Lorraine Hathaway MD PCP [facility], External Provider PCP Unavailable Encounter Details Care Team Description Date Type Department Reggie Ramirez MD NO ADDRESS ON FILE BACKACHE NOS (Primary Dx) 09/24/2001 Outpatient [facility] Historical [address] [address] Social History Date Tobacco Use [...]
--- OUTSIDE RECORDS SUMMARY | 2019-10-21 19:03 | XMS REPORT | Encounter Summary ---
Author Author [facility] Organization [facility] Address Unknown Phone Unavailable Care Team Providers Care Manager Of Financial Name Role Phone Phong Stephens MD PCP Unavailable Robby Rajan APRN Unavailable Phong Stephens MD PCP Unavailable Carlos Middleton PCP Lorraine Hathaway MD PCP [facility], External Provider PCP Unavailable Encounter Details Care Team Description Date Type Department Reggie Ramirez MD NO ADDRESS ON FILE OTHER MALAISE AND FATIGUE (Primary Dx) 04/10/2002 Outpatient [facility] Consol idated Historical [address] [address] Social History Date Tobacco Use Types Packs/Day [...]
--- OUTSIDE RECORDS SUMMARY | 2019-10-21 19:03 | XMS REPORT | Encounter Summary ---
Author Author [facility] Organization [facility] Address Unknown Phone Unavailable Care Team Providers Care Antisqueak Worker Name Role Phone Phong Stephens MD PCP Unavailable Robby Rajan APRN Unavailable Phong Stephens MD PCP Unavailable Carlos Middleton PCP Lorraine Hathaway MD PCP [facility], External Provider PCP Unavailable Encounter Details Care Team Description Date Type Department Yina, Emy Floyd APRN NO ADDRESS ON FILE HEADACHE (Primary Dx) 06/23/2001 Emergency [facility] Emergency Department [address] [address] Social History Date Tobacco [...]
--- OUTSIDE RECORDS SUMMARY | 2019-10-21 19:03 | XMS REPORT | Encounter Summary ---
Author Author [facility] Organization [facility] Address Unknown Phone Unavailable Care Team Providers Care News Clerk Name Role Phone Phong Stephens MD PCP Unavailable Robby Rajan SPEEDER MACHINE OPERATOR Unavailable Phong Stephens MD PCP Unavailable Carlos Middleton PCP Lorraine Hathaway MD PCP [facility], External Provider PCP Unavailable Encounter Details Care Team Description Date Type Department Self, Bubba Hsieh MD [address] [place] [address] 09/30/2001 Outpatient [facility] Consol idated [facility] [address] [place] [address] Social History Date Tobacco Use Types Packs/Day [...]
--- OUTSIDE RECORDS SUMMARY | 2019-10-21 19:03 | XMS REPORT | Encounter Summary ---
Author Author [facility] Organization [facility] Address Unknown Phone Unavailable Care Team Providers Care Tool Machine Set Up Operator Name Role Phone Phong Stephens MD PCP Unavailable Robby Rajan APRN Unavailable Phong Stephens MD PCP Unavailable Carlos Middleton PCP Lorraine Hathaway MD PCP [facility], External Provider PCP Unavailable Encounter Details Care Team Description Date Type Department Reggie Ramirez MD NO ADDRESS ON FILE Plantar fibromatosis (Primary Dx) 06/18/2002 Outpatient [facility] Consol idated [address] [address] Social History Date Tobacco Use Types Packs/Day Years Used Never Assessed Sex Assigned at Date Recorded Not on file Industry Job Start Date Occupation Not on file Not on file Not on file Travel End Travel History Travel Start No recent travel history available. 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
--- OUTSIDE RECORDS SUMMARY | 2019-10-21 19:03 | XMS REPORT | Encounter Summary ---
Author Author [facility] Organization [facility] Address Unknown Phone Unavailable Care Team Providers Care Trust Mail Clerk Name Role Phone Phong Stephens MD PCP Unavailable Robby Rajan APRN Unavailable Phong Stephens MD PCP Unavailable Carlos Middleton PCP Lorraine Hathaway MD PCP [facility], External Provider PCP Unavailable Encounter Details Care Team Description Date Type Department Reggie Ramirez MD NO ADDRESS ON FILE LUMBAGO (Primary Dx) 06/20/2001 Outpatient [facility] Consol idated [address] [address] Social History Date Tobacco Use Types Packs/Day [...]
--- OUTSIDE RECORDS SUMMARY | 2019-10-21 19:03 | XMS REPORT | Encounter Summary ---
Author Author [facility] Organization [facility] Address Unknown Phone Unavailable Care Team Providers Care Identification Officer Name Role Phone Phong Stephens MD PCP Unavailable Robby Rajan APRN Unavailable Phong Stephens MD PCP Unavailable Carlos Middleton PCP Lorraine Hathaway MD PCP [facility]cf, External Provider PCP Unavailable Encounter Details Care Team Description Date Type Department Reggie Ramirez MD NO ADDRESS ON FILE Plantar fibromatosis (Primary Dx) 04/29/2002 Outpatient [facility] Consol [address] [address] Social History Date Tobacco Use Types Packs/Day [...]
--- OUTSIDE RECORDS SUMMARY | 2019-10-21 19:03 | XMS REPORT | Encounter Summary ---
Author Author [facility] Organization [facility] Address Unknown Phone Unavailable Care Team Providers Care Press Maintainer Name Role Phone Phong Stephens MD PCP Unavailable Robby Rajan APRN Unavailable Phong Stephens MD PCP Unavailable Carlos Middleton PCP Lorraine Hathaway MD PCP M[facility]cf, External Provider PCP Unavailable Encounter Details Care Team Description Date Type Department Reggie Ramirez MD NO ADDRESS ON FILE Open wound of forearm (Primary Dx) 06/28/2001 Emergency [facility] Emergency Department [address] [address] Social History Date Tobacco Use [...] encounter Visit Diagnoses Diagnosis Open wound of forearm - Primary Open wound of forearm, without mention of complication documented in this encounter
--- OUTSIDE RECORDS SUMMARY | 2019-10-21 19:03 | XMS REPORT | Encounter Summary ---
Author Author [facility] Organization [facility] Address Unknown Phone Unavailable Care Team Providers Care Investment Counselor Name Role Phone Phong Stephens MD PCP Unavailable Robby Rajan APRN Unavailable Phong Stephens MD PCP Unavailable Carlos Middleton PCP Lorraine Hathaway MD PCP M[facility]cf, External Provider PCP Unavailable Encounter Details Care Team Description Date Type Department Reggie Ramirez MD NO ADDRESS ON FILE 12/30/2001 Outpatient [facility] Consol idated Historical [address] [address] Social History Date Tobacco Use Types Packs/Day [...]
--- OUTSIDE RECORDS SUMMARY | 2019-10-21 19:03 | XMS REPORT | Encounter Summary ---
Author Author [facility] Organization [facility] Address Unknown Phone Unavailable Care Team Providers Care Clutch Mechanic Name Role Phone Phong Stephens MD PCP Unavailable Robby Rajan APRN Unavailable Phong Stephens MD PCP Unavailable Carlos Middleton PCP Lorraine Hathaway MD PCP Mhcf, External Provider PCP Unavailable Encounter Details Care Team Description Date Type Department Linda Galicia ARNP [address] [place] [address] 09/12/2001 Outpatient [facility] Consol [address] [address] Social History Date Tobacco Use Types Packs/Day [...]
--- OUTSIDE RECORDS SUMMARY | 2019-10-21 19:03 | XMS REPORT | Encounter Summary ---
Author Author [facility] Organization [facility] Address Unknown Phone Unavailable Care Team Providers Care Range Ecologist Name Role Phone Phong Stephens MD PCP Unavailable Robby Rajan APRN Unavailable Phong Stephens MD PCP Unavailable Carlos Middleton PCP Lorraine Hathaway MD PCP Mhcf, External Provider PCP Unavailable Encounter Details Care Team Description Date Type Department Reggie Ramirez MD NO ADDRESS ON FILE SPRAIN OF KNEE & LEG NOS (Primary Dx) 07/08/2002 Inpatient [facility] Surgery [address] [address] Social History Date Tobacco [...] of this encounter Visit Diagnoses Diagnosis Sprain and strain of unspecified site o f knee and leg - Primary documented in this encounter
--- OUTSIDE RECORDS SUMMARY | 2019-10-21 19:03 | XMS REPORT | Encounter Summary ---
Author Author [facility] Organization [facility] Address Unknown Phone Unavailable Care Team Providers Care Leather Stripping Machine Operator Name Role Phone Phong Stephens MD PCP Unavailable Robby Rajan [employer] Unavailable Phong Stephens MD PCP Unavailable Carlos Middleton PCP Lorraine Hathaway MD PCP M[facility]cf, External Provider PCP Unavailable Encounter Details Care Team Description Date Type Department Teri Rutledge, [employer] [address] [place] [address] HEADACHE (Primary Dx) 08/20/2002 Outpatient [facility] Consol [address] [address] Social History Date Tobacco Use Types Packs/Day [...]
--- OUTSIDE RECORDS SUMMARY | 2019-10-21 19:03 | XMS REPORT | Encounter Summary ---
Author Author [facility] Organization [facility] Address Unknown Phone Unavailable Care Team Providers Care Newspaper Delivery Driver Name Role Phone Phong Stephens MD PCP Unavailable Robby Rajan APRN Unavailable Phong Stephens MD PCP Unavailable Carlos Middleton PCP Lorraine Hathaway MD PCP M[facility]cf, External Provider PCP Unavailable Encounter Details Care Team Description Date Type Department Reggie Ramirez MD NO ADDRESS ON FILE CERVICALGIA (Primary Dx) 07/25/[address] [facility] Emergency Department [address] [address] Social History Date Tobacco [...] as of this encounter Visit Diagnoses Diagnosis Cervicalgia - Primary documented in this encounter
--- OUTSIDE RECORDS SUMMARY | 2019-10-21 19:04 | XMS REPORT | Encounter Summary ---
Author Author [facility] Organization [facility] Address Unknown Phone Unavailable Care Team Providers Care Food Safety Officer Name Role Phone Phong Stephens MD PCP Unavailable Robby Rajan APRN Unavailable hPong Stephens MD PCP Unavailable Carlos Middleton PCP Lorraine Hathaway MD PCP M[facility]cf, External Provider PCP Unavailable Encounter Details Care Team Description Date Type Department Indianalizbeth Herman K. [phone] Chronic cholecystitis (Primary Dx) 01/17/2001 Outpatient [facility] Historical Social History Date Tobacco Use Types [...] of this encounter Visit Diagnoses Diagnosis Chronic cholecystitis - Primary documented in this encounter
--- OUTSIDE RECORDS SUMMARY | 2019-10-21 19:04 | XMS REPORT | Encounter Summary ---
Author Author [facility] Organization [facility] Address Unknown Phone Unavailable Care Team Providers Care Senior Supplier Quality Engineer Name Role Phone Phong Stephens MD PCP Unavailable Robby Rajan APRN Unavailable Phong Stephens MD PCP Unavailable Carlos Middleton PCP Lorraine Hathaway MD PCP M[facility]cf, External Provider PCP Unavailable Encounter Details Care Team Description Date Type Department Reggie Ramirez MD NO ADDRESS ON FILE Vaginitis and vulvovaginitis, unspecifie d (Primary Dx) 03/11/2001 Outpatient [facility] Consol idated Historical [address] [address] Social History Date Tobacco Use Types Packs/Day Years Used Never Assessed Sex Assigned at Date Recorded Not on file Industry Job Start Date Occupation Not on file Not on file Not on file Travel End Travel History Travel Start No recent travel history available. documented as of this encounter Plan of Treatment Not on filedocumented as of this encounter Visit Diagnoses Diagnosis Vaginitis and vulvovaginitis, unspecifi ed - Primary documented in this encounter
--- OUTSIDE RECORDS SUMMARY | 2019-10-21 19:04 | XMS REPORT | Encounter Summary ---
Author Author [facility] Organization [facility] Address Unknown Phone Unavailable Care Team Providers Care Water Service Dispatcher Name Role Phone Phong Stephens MD PCP Unavailable Robby Rajan APRN Unavailable Pohng Stephens MD PCP Unavailable Carlos Middleton PCP Lorraine Hathaway MD PCP M[facility]cf, External Provider PCP Unavailable Encounter Details Care Team Description Date Type Department Injury, other and unspecifie d, elbow, forearm, and wrist (Primary Dx) 03/31/2001 Emergency [facility] Emergency Department [address] [address] Social History Date Tobacco Use [...]
--- OUTSIDE RECORDS SUMMARY | 2019-10-21 19:04 | XMS REPORT | Encounter Summary ---
Author Author [facility] Organization [facility] Address Unknown Phone Unavailable Care Team Providers Care Avionics Manager Name Role Phone Phong Stephens MD PCP Unavailable Robby Rajan APRN Unavailable Phong Stephens MD PCP Unavailable Carlos Middleton PCP Lorraine Hathaway MD PCP Mhcf, External Provider PCP Unavailable Encounter Details Care Team Description Date Type Department Gertrudis Hermosillo MD NO ADDRESS ON FILE Carpal tunnel syndrome (Primary Dx) 03/27/2001 Outpatient Historical Social History Date Tobacco Use Types [...] encounter Visit Diagnoses Diagnosis Carpal tunnel syndrome - Primary documented in this encounter
--- OUTSIDE RECORDS SUMMARY | 2019-10-21 19:04 | XMS REPORT | Encounter Summary ---
Author Author [facility] Organization [facility] Address Unknown Phone Unavailable Care Team Providers Care Intensive Care Specialist Name Role Phone Phong Stephens MD PCP Unavailable Robby Rajan APRN Unavailable Phong Stephens MD PCP Unavailable Carlos Middleton PCP Lorraine Hathaway MD PCP Mhcf, External Provider PCP Unavailable Encounter Details Care Team Description Date Type Department Shortness of breath (Primary Dx) 02/24/2001 Emergency [facility] Emergency Department [address] [address] Social History Date Tobacco Use [...]
--- OUTSIDE RECORDS SUMMARY | 2019-10-21 19:04 | XMS REPORT | Encounter Summary ---
Author Author [facility] Organization [facility] Address Unknown Phone Unavailable Care Team Providers Care Woodenware Assembler Name Role Phone Phong Stephens MD PCP Unavailable Robby Rajan APRN Unavailable Phong Stephens MD PCP Unavailable Carlos Middleton PCP Lorraine Hathaway MD PCP Mhcf, External Provider PCP Unavailable Encounter Details Care Team Description Date Type Department Reggie Ramirez MD NO ADDRESS ON FILE JOINT PAIN-JOINT NEC (Primary Dx) 04/30/2001 Outpatient [facility] Consol idated Historical [address] [address] Social History Date Tobacco Use Types Packs/Day [...] encounter Visit Diagnoses Diagnosis Pain in joint, other specified sites - Primary documented in this encounter
--- OUTSIDE RECORDS SUMMARY | 2019-10-21 19:04 | XMS REPORT | Encounter Summary ---
Author Author [facility] Organization [facility] Address Unknown Phone Unavailable Care Team Providers Care Lens Grinder Name Role Phone Phong Stephens MD PCP Unavailable Robby Rajan APRN Unavailable Phong Stephens MD PCP Unavailable Carlos Middleton PCP Lorraine Hathaway MD PCP Mhcf, External Provider PCP Unavailable Encounter Details Care Team Description Date Type Department Phong Stephens MD NO ADDRESS ON FILE Routine medical exam (Primary Dx) 01/12/2001 Outpatient [facility] Consol idated [address] [address] Social History Date Tobacco Use Types Packs/Day [...]
--- OUTSIDE RECORDS SUMMARY | 2019-10-21 19:04 | XMS REPORT | Encounter Summary ---
Author Author [facility] Organization [facility] Address Unknown Phone Unavailable Care Team Providers Care Automatic Vulcanizing Operator Name Role Phone Phong Stephens MD PCP Unavailable Robby Rajan APRN Unavailable Phong Stephens MD PCP Unavailable Carlos Middleton PCP Lorraine Hathaway MD PCP Mhcf, External Provider PCP Unavailable Encounter Details Care Team Description Date Type Department Painful respiration (Primary Dx) 03/13/2001 Emergency [facility] Emergency Department [address] [address] Social History Date Tobacco Use [...] as of this encounter Visit Diagnoses Diagnosis Painful respiration - Primary documented in this encounter
--- OUTSIDE RECORDS SUMMARY | 2019-10-21 19:04 | XMS REPORT | Encounter Summary ---
Author Author [facility] Organization [facility] Address Unknown Phone Unavailable Care Team Providers Care Multimedia Authoring Specialist Name Role Phone Phong Stephens MD PCP Unavailable Robby Rajan APRN Unavailable Phong Stephens MD PCP Unavailable Carlos Middleton PCP Lorraine Hathaway MD PCP Mhcf, External Provider PCP Unavailable Encounter Details Care Team Description Date Type Department Linda Galicia ARNP [address] [place] [address] Abnormal weight gain (Primary Dx) 03/22/2001 Outpatient [facility] Consol [address] [address] Social History Date Tobacco Use Types Packs/Day [...]
--- OUTSIDE RECORDS SUMMARY | 2019-10-21 19:04 | XMS REPORT | Encounter Summary ---
Author Author [facility] Organization [facility] Address Unknown Phone Unavailable Care Team Providers Care Small Engine Technician Name Role Phone Phong Stephens MD PCP Unavailable Robby Rajan APRN Unavailable Phong Stephens MD PCP Unavailable Carlos Middleton PCP Lorraine Hathaway MD PCP Mhcf, External Provider PCP Unavailable Encounter Details Care Team Description Date Type Department Jr Yemi Nunn, [address] [place] [phone] Backache, unspecified (Primary Dx) 02/15/2001 Emergency [facility] Emergency Department [address] [address] Social History Date Tobacco Use [...]
--- OUTSIDE RECORDS SUMMARY | 2019-10-21 19:04 | XMS REPORT | Encounter Summary ---
Author Author [facility] Organization [facility] Address Unknown Phone Unavailable Care Team Providers Care Media Arts Professor Name Role Phone Phong Stephens MD PCP Unavailable Robby Rajan APRN Unavailable Phong Stephens MD PCP Unavailable Carlos Middleton PCP Lorraine Hathaway MD PCP Mhcf, External Provider PCP Unavailable Encounter Details Care Team Description Date Type Department Gertrudis Hermosillo MD NO ADDRESS ON FILE Carpal tunnel syndrome (Primary Dx) 03/26/2001 [facility]patient [facility] Historical Social History Date Tobacco [...]
--- OUTSIDE RECORDS SUMMARY | 2019-10-21 19:04 | XMS REPORT | Encounter Summary ---
Author Author [facility] Organization [facility] Address Unknown Phone Unavailable Care Team Providers Care Textile Colorist Dyer Name Role Phone Phong Stephens MD PCP Unavailable Robby Rajan APRN Unavailable Phong Stephens MD PCP Unavailable Carlos Middleton PCP Lorraine Hathaway MD PCP Mhcf, External Provider PCP Unavailable Encounter Details Care Team Description Date Type Department Reggie Ramirez MD NO ADDRESS ON FILE Abnormal glucose (Primary Dx) 03/25/2001 Outpatient [facility] Consol idated [address] [address] Social History Date Tobacco Use Types Packs/Day Years Used Never Assessed Sex Assigned at Date Recorded Not on file Industry Job Start Date Occupation Not on file Not on file Not on file Travel End Travel History Travel Start No recent travel history available. documented as of this encounter Plan of Treatment Not on filedocumented as of this encounter Visit Diagnoses Diagnosis Abnormal glucose - Primary documented in this encounter
--- OUTSIDE RECORDS SUMMARY | 2019-10-21 19:04 | XMS REPORT | Encounter Summary ---
Author Author [facility] Organization [facility] Address Unknown Phone Unavailable Care Team Providers Care Transfer Engineer Name Role Phone Phong Stephens MD PCP Unavailable Robby Rajan APRN Unavailable Phong Stephens MD PCP Unavailable Carlos Middleton PCP Lorraine Hathaway MD PCP Mhcf, External Provider PCP Unavailable Encounter Details Care Team Description Date Type Department Lee Wan, DO [address] [place] [address] Lumbago (Primary Dx) 12/30/2000 Emergency [facility] Emergency Department [address] [address] Social History Date Tobacco Use [...]
--- OUTSIDE RECORDS SUMMARY | 2019-10-21 19:04 | XMS REPORT | Encounter Summary ---
Author Author [facility] Organization [facility] Address Unknown Phone Unavailable Care Team Providers Care Tong Carrier Name Role Phone Phong Stephens MD PCP Unavailable Robby Rajan APRN Unavailable Phong Stephens MD PCP Unavailable Carlos Middleton PCP Lorraine Hathaway MD PCP Mhcf, External Provider PCP Unavailable Encounter Details Care Team Description Date Type Department Reggie Ramirez MD NO ADDRESS ON FILE MYALGIA AND MYOSITIS NOS (Primary Dx) 04/12/2001 Outpatient [facility] Consol idated Historical [address] [address] Social History Date Tobacco Use Types Packs/Day [...]
--- OUTSIDE RECORDS SUMMARY | 2019-10-21 19:04 | XMS REPORT | Encounter Summary ---
Author Author [facility] Organization [facility] Address Unknown Phone Unavailable Care Team Providers Care Supervisor Maintenance And Custodians Name Role Phone Phong Stephens MD PCP Unavailable Robby Rajan APRN Unavailable Phong Stephens MD PCP Unavailable Carlos Middleton PCP Lorraine Hathaway MD PCP Mhcf, External Provider PCP Unavailable Encounter Details Care Team Description Date Type Department Reggie Ramirez MD NO ADDRESS ON FILE Tobacco use disorder (Primary Dx) 03/19/2001 Outpatient [facility] Consol idated [address] [address] Social History Date Tobacco Use Types Packs/Day Years Used Never Assessed Sex Assigned at Date Recorded Not on file Industry Job Start Date Occupation Not on file Not on file Not on file Travel End Travel History Travel Start No recent travel history available. documented as of this encounter Plan of Treatment Not on filedocumented as of this encounter Visit Diagnoses Diagnosis Tobacco use disorder - Primary documented in this encounter
--- OUTSIDE RECORDS SUMMARY | 2019-10-21 19:04 | XMS REPORT | Encounter Summary ---
Author Author [facility] Organization [facility] Address Unknown Phone Unavailable Care Team Providers Care Commercial Collector Name Role Phone Phong Stephens MD PCP Unavailable Robby Rajan APRN Unavailable Phong Stephens MD PCP Unavailable Carlos Middleton PCP Lorraine Hathaway MD PCP Mhcf, External Provider PCP Unavailable Encounter Details Care Team Description Date Type Department Reggie Ramirez MD NO ADDRESS ON FILE Shortness of breath (Primary Dx) 03/13/2001 Outpatient [facility] [address] [place] [address] Social History Date Tobacco Use [...]
--- OUTSIDE RECORDS SUMMARY | 2019-10-21 19:04 | XMS REPORT | Encounter Summary ---
[...] Type Department Lee Wan, DO [address] [place] [address] Headache(784.0) (Primary Dx) 12/21/2000 Emergency [facility] Emergency Department [address] [address] Social History Date Tobacco Use [...]
--- OUTSIDE RECORDS SUMMARY | 2019-10-21 19:04 | XMS REPORT | Encounter Summary ---
Author Author [facility] Organization [facility] Address Unknown Phone Unavailable Care Team Providers Care Provider Scribe Name Role Phone Phong Stephens MD PCP Unavailable Robby Rajan APRN Unavailable Phong Stephens MD PCP Unavailable Carlos Middleton PCP Lorraine Hathaway MD PCP Mhcf, External Provider PCP Unavailable Encounter Details Care Team Description Date Type Department Reggie Ramirez MD NO ADDRESS ON FILE Chronic cholecystitis (Primary Dx) 01/07/2001 Inpatient Historical Social History Date Tobacco Use [...]
--- OUTSIDE RECORDS SUMMARY | 2019-10-21 19:04 | XMS REPORT | Encounter Summary ---
Author Author [facility] Organization [facility] Address Unknown Phone Unavailable Care Team Providers Care Vocational Rehabilitation Supervisor Name Role Phone Phong Stephens MD PCP Unavailable Robby Rajan APRN Unavailable Phong Stephens MD PCP Unavailable Carlos Middleton PCP Lorraine Hathaway MD PCP M[facility]cf, External Provider PCP Unavailable Encounter Details Care Team Description Date Type Department Heydi [place] MD [address] [place] [address] 03/21/2001 Outpatient [facility] Laboratory Services [address] [address] Social History Date Tobacco Use [...]
--- OUTSIDE RECORDS SUMMARY | 2019-10-21 19:04 | XMS REPORT | Encounter Summary ---
Author Author [facility] Organization [facility] Address Unknown Phone Unavailable Care Team Providers Care Marketing Communications Manager Name Role Phone Phong Stephens MD PCP Unavailable Robby Rajan APRN Unavailable Phong Stephens MD PCP Unavailable Carlos Middleton PCP Lorraine Hathaway MD PCP Mhcf, External Provider PCP Unavailable Encounter Details Care Team Description Date Type Department Reggie Ramirez MD NO ADDRESS ON FILE Sacroiliitis NEC (Primary Dx) 02/18/2001 Outpatient [facility] Consol idated Historical [address] [address] Social History Date Tobacco Use Types Packs/Day Years Used Never Assessed Sex Assigned at Date Recorded Not on file Industry Job Start Date Occupation Not on file Not on file Not on file Travel End Travel History Travel Start No recent travel history available. documented as of this encounter Plan of Treatment Not on filedocumented as of this encounter Visit Diagnoses Diagnosis Sacroiliitis NEC - Primary Sacroiliitis, not elsewhere classified documented in this encounter
--- OUTSIDE RECORDS SUMMARY | 2019-10-21 19:04 | XMS REPORT | Encounter Summary ---
Author Author [facility] Organization [facility] Address Unknown Phone Unavailable Care Team Providers Care Ceramic Research Engineer Name Role Phone Phong Stephens MD PCP Unavailable Robby Rajan APRN Unavailable Phong Stephens MD PCP Unavailable Carlos Middleton PCP Lorraine Hathaway MD PCP M[facility]cf, External Provider PCP Unavailable Encounter Details Care Team Description Date Type Department Heydi [place] MD [address] [place] [address] Vaginitis and vulvovaginitis, unspecifie d (Primary Dx) 03/26/2001 Outpatient [facility] Consol idated [facility] [address] [place] [address] Social History Date Tobacco Use Types Packs/Day [...]
--- OUTSIDE RECORDS SUMMARY | 2019-10-21 19:04 | XMS REPORT | Encounter Summary ---
Author Author [facility] Organization [facility] Address Unknown Phone Unavailable Care Team Providers Care Wood Crew Supervisor Name Role Phone Phong Stephens MD PCP Unavailable Robby Rajan APRN Unavailable Phong Stephens MD PCP Unavailable Carlos Middleton PCP Lorraine Hathaway MD PCP M[facility]cf, External Provider PCP Unavailable Encounter Details Care Team Description Date Type Department Reggie Ramirez MD NO ADDRESS ON FILE Brief depressive react (Primary Dx) 04/16/2001 Outpatient [facility] Consol idated Historical [address] [address] Social History Date Tobacco Use Types Packs/Day Years Used Never Assessed Sex Assigned at Date Recorded Not on file Industry Job Start Date Occupation Not on file Not on file Not on file Travel End Travel History Travel Start No recent travel history available. documented as of this encounter Plan of Treatment Not on filedocumented as of this encounter Visit Diagnoses Diagnosis Brief depressive react - Primary Adjustment disorder with depressed mood documented in this encounter
--- OUTSIDE RECORDS SUMMARY | 2019-10-21 19:04 | XMS REPORT | Encounter Summary ---
Author Author [facility] Organization [facility] Address Unknown Phone Unavailable Care Team Providers Care X Ray Physician Name Role Phone Phong Stephens MD PCP Unavailable Robby Rajan APRN Unavailable Phong Stephens MD PCP Unavailable Carlos Middleton PCP Lorraine Hathaway MD PCP [facility]cf, External Provider PCP Unavailable Encounter Details Care Team Description Date Type Department Reggie Ramirez MD NO ADDRESS ON FILE 03/25/2001 Outpatient [facility] Laboratory Services [address] [address] Social History Date Tobacco [...]
--- OUTSIDE RECORDS SUMMARY | 2019-10-21 19:04 | XMS REPORT | Encounter Summary ---
Author Author [facility] Organization [facility] Address Unknown Phone Unavailable Care Team Providers Care Reproduction Order Processor Name Role Phone Phong Stephens MD PCP Unavailable Robby Rajan APRN Unavailable Phong Stephens MD PCP Unavailable Carlos Middleton PCP Lorraine Hathaway MD PCP [facility], External Provider PCP Unavailable Encounter Details Care Team Description Date Type Department Heyid Harrell MD [address] [place] [address] Vaginitis and vulvovaginitis, unspecifie d (Primary Dx) 03/21/2001 Outpatient [facility] Consol idated [facility] [address] [place] [address] Social History Date Tobacco Use Types Packs/Day [...]
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
--- OUTSIDE RECORDS SUMMARY | 2019-10-21 19:04 | XMS REPORT | Encounter Summary ---
Author Author [facility] Organization [facility] Address Unknown Phone Unavailable Care Team Providers Care Manager Market Research Name Role Phone Phong Stephens MD PCP Unavailable Robby Rajan APRN Unavailable Phong Stephens MD PCP Unavailable Carlso Middleton PCP Lorraine Hathaway MD PCP [facility]cf, External Provider PCP Unavailable Encounter Details Care Team Description Date Type Department Heydi Harrell MD [address] [place] [address] VAGINITIS NOS (Primary Dx) 04/30/2001 Outpatient [facility] Consol idated Historical [facility] [address] [place] [address] Social History Date Tobacco Use Types Packs/Day [...]
--- OUTSIDE RECORDS SUMMARY | 2019-10-21 19:04 | XMS REPORT | Encounter Summary ---
Author Author [facility] Organization [facility] Address Unknown Phone Unavailable Care Team Providers Care Leveling Machine Operator Name Role Phone Phong Stephens MD PCP Unavailable Robby Rajan APRN Unavailable Phong Stephens MD PCP Unavailable Carlos Middleton PCP Lorraine Hathaway MD PCP [facility], External Provider PCP Unavailable Encounter Details Care Team Description Date Type Department Reggie Ramirez MD NO ADDRESS ON FILE MYALGIA AND MYOSITIS NOS (Primary Dx) 04/12/2001 Outpatient [facility]IC[facility] Historical MEDICAID Social [...]
--- OUTSIDE RECORDS SUMMARY | 2019-10-21 19:05 | XMS REPORT | Encounter Summary ---
Author Author [facility] Organization [facility] Address Unknown Phone Unavailable Care Team Providers Care Nonprofit Manager Name Role Phone Phong Stephens MD PCP Unavailable Robby Rajan APRN Unavailable Phong Stephens MD PCP Unavailable Carlos Middleton PCP Lorraine Hathaway MD PCP [facility], External Provider PCP Unavailable Encounter Details Care Team Description Date Type Department Reggie Ramirez MD NO ADDRESS ON FILE Abdominal pain, unspecified site (Primar y Dx) 01/19/2000 Outpatient [facility] Ultrasound [address] [place] [address] Social History Date Tobacco Use [...]
--- OUTSIDE RECORDS SUMMARY | 2019-10-21 19:05 | XMS REPORT | Encounter Summary ---
Author Author [facility] Organization [facility] Address Unknown Phone Unavailable Care Team Providers Care Workday Senior Associate Name Role Phone Phong Stephens MD PCP Unavailable Robby Rajan APRN Unavailable Phong Stephens MD PCP Unavailable Carlos Middleton PCP Lorraine Hathaway MD PCP [facility], External Provider PCP Unavailable Encounter Details Care Team Description Date Type Department Lee Wan, DO [address] [place] [address] Shortness of breath (Primary Dx) 11/28/1999 Emergency [facility] Emergency Department [address] [address] Social History Date Tobacco Use [...]
--- OUTSIDE RECORDS SUMMARY | 2019-10-21 19:05 | XMS REPORT | Encounter Summary ---
Author Author [facility] Organization [facility] Address Unknown Phone Unavailable Care Team Providers Care Paper Sample Clerk Name Role Phone Phong Stephens MD PCP Unavailable Robby Rajan APRN Unavailable Phong Stephens MD PCP Unavailable Carlos Middleton PCP Lorraine Hathaway MD PCP [facility]cf, External Provider PCP Unavailable Encounter Details Care Team Description Date Type Department Reggie Ramirez MD NO ADDRESS ON FILE 01/16/2000 Outpatient [facility] Laboratory Services [address] [address] Social History Date Tobacco Use [...]
--- OUTSIDE RECORDS SUMMARY | 2019-10-21 19:05 | XMS REPORT | Encounter Summary ---
Author Author [facility] Organization [facility] Address Unknown Phone Unavailable Care Team Providers Care Drive Thru Order Taker Name Role Phone Phong Stephens MD PCP Unavailable Robby Rajan APRN Unavailable Phong Stephens MD PCP Unavailable Carlos Middleton PCP Lorraine Hathaway MD PCP [facility]cf, External Provider PCP Unavailable Encounter Details Care Team Description Date Type Department Lee Wan, DO [address] [place] [address] Lumbago (Primary Dx) 09/01/1999 Emergency [facility] Emergency Department [address] [address] Social History Date Tobacco [...]
--- OUTSIDE RECORDS SUMMARY | 2019-10-21 19:05 | XMS REPORT | Encounter Summary ---
Author Author [facility] Organization [facility] Address Unknown Phone Unavailable Care Team Providers Care Educational Psychologist Name Role Phone Phong Stephens MD PCP Unavailable Robby Rajan APRN Unavailable Phong Stephens MD PCP Unavailable Carlos Middleton PCP Lorraine Hathaway MD PCP [facility]cf, External Provider PCP Unavailable Encounter Details Care Team Description Date Type Department Lee Wan, DO [address] [place] [address] Acute pharyngitis (Primary Dx) 10/04/1999 Emergency [facility] Emergency Department [address] [address] Social History Date Tobacco Use [...]
--- OUTSIDE RECORDS SUMMARY | 2019-10-21 19:05 | XMS REPORT | Encounter Summary ---
Author Author [facility] Address Unknown Phone Unavailable Care Team Providers Care Er Rn Name Role Phone Phong Stephens MD PCP Unavailable Robby Rajan [facility] CAR[facility] Unavailable Phong Stephens MD PCP Unavailable Carlos Middleton PCP Lorraine Hathaway MD PCP [facility], External Provider PCP Unavailable Encounter Details Care Team Description Date Type Department Yina, Emy Floyd APRN NO ADDRESS ON FILE Headache(784.0) (Primary Dx) 07/05/2000 Emergency [facility] Emergency Department [address] [address] Social History Date Tobacco [...]
--- OUTSIDE RECORDS SUMMARY | 2019-10-21 19:05 | XMS REPORT | Encounter Summary ---
Author Author [facility] Organization [facility] Address Unknown Phone Unavailable Care Team Providers Care Offset Duplicating Machine Operator Name Role Phone Phong Stephens MD PCP Unavailable Robby Rajan APRN Unavailable Phong Stephens MD PCP Unavailable Carlos Middleton PCP Lorraine Hathaway MD PCP [facility], External Provider PCP Unavailable Encounter Details Care Team Description Date Type Department Reggie Ramirze MD NO ADDRESS ON FILE Acute sinusitis, unspecified (Primary Dx ) 02/08/2000 Outpatient [facility] Consol idated Historical [address] [address] Social History Date Tobacco Use Types Packs/Day Years Used Never Assessed Sex Assigned at Date Recorded Not on file Industry Job Start Date Occupation Not on file Not on file Not on file Travel End Travel History Travel Start No recent travel history available. documented as of this encounter Plan of Treatment Not on filedocumented as of this encounter Visit Diagnoses Diagnosis Acute sinusitis, unspecified - Primary documented in this encounter
--- OUTSIDE RECORDS SUMMARY | 2019-10-21 19:05 | XMS REPORT | Encounter Summary ---
Author Author [facility] Organization [facility] Address Unknown Phone Unavailable Care Team Providers Care Needleworker Name Role Phone Phong Stephens MD PCP Unavailable Robby Rajan APRN Unavailable Phong Stephens MD PCP Unavailable Carlos Middleton PCP Lorraine Hathaway MD PCP [facility], External Provider PCP Unavailable Encounter Details Care Team Description Date Type Department Jr Yemi Nunn, [address] [place] [id number] Acute sinusitis, unspecified (Primary Dx ) 03/30/[address] [address] Social History Date Tobacco Use Types Packs/Day [...]
--- OUTSIDE RECORDS SUMMARY | 2019-10-21 19:05 | XMS REPORT | Encounter Summary ---
Author Author [facility] Organization [facility] Address Unknown Phone Unavailable Care Team Providers Care Environmental Health Safety Manager Name Role Phone Phong Stephens MD PCP Unavailable Robby Rajan APRN Unavailable Phong Stephens MD PCP Unavailable Carlos Middleton PCP Lorraine Hathaway MD PCP [facility]cf, External Provider PCP Unavailable Encounter Details Care Team Description Date Type Department Reggie Ramirez MD NO ADDRESS ON FILE Acute upper respiratory infections of un specified site (Primary Dx) 04/20/[address] [facility] Consol idated [address] [address] Social History Date Tobacco Use Types Packs/Day Years Used Never Assessed Sex Assigned at Date Recorded Not on file Industry Job Start Date Occupation Not on file Not on file Not on file Travel End Travel History Travel Start No recent travel history available. documented as of this encounter Plan of Treatment Not on filedocumented as of this encounter Visit Diagnoses Diagnosis Acute upper respiratory infections of u nspecified site - Primary documented in this encounter
--- OUTSIDE RECORDS SUMMARY | 2019-10-21 19:05 | XMS REPORT | Encounter Summary ---
Author Author [facility] Organization [facility] Address Unknown Phone Unavailable Care Team Providers Care Commercial Sales Manager Name Role Phone Phong Stephens MD PCP Unavailable Robby Rajan APRN Unavailable Phong Stephens MD PCP Unavailable Carlos Middleton PCP Lorraine Hathaway MD PCP [facility], External Provider PCP Unavailable Encounter Details Care Team Description Date Type Department Reggie Ramirez MD NO ADDRESS ON FILE Major depressive disorder, single episod e, unspecified (Primary Dx) 07/17/[address] [facility] Consol idated [address] [address] Social History Date Tobacco Use Types Packs/Day [...]
--- OUTSIDE RECORDS SUMMARY | 2019-10-21 19:05 | XMS REPORT | Encounter Summary ---
Author Author [facility] Organization [facility] Address Unknown Phone Unavailable Care Team Providers Care Carburetor Mechanic Name Role Phone Phong Stephens MD PCP Unavailable Robby Rajan CATALOGUE ILLUSTRATOR Unavailable Phong Stephens MD PCP Unavailable Carlos Middleton PCP Lorraine Hathaway MD PCP [facility], External Provider PCP Unavailable Encounter Details Care Team Description Date Type Department Yina, Emy Floyd APRN NO ADDRESS ON FILE Headache(784.0) (Primary Dx) 05/07/2000 Emergency [facility] Emergency Department [address] [address] Social History Date Tobacco Use [...]
--- OUTSIDE RECORDS SUMMARY | 2019-10-21 19:05 | XMS REPORT | Encounter Summary ---
Author Author [facility] Organization [facility] Address Unknown Phone Unavailable Care Team Providers Care Effervescent Salts Compounder Name Role Phone Phong Stephens MD PCP Unavailable Robby Rajan APRN Unavailable Phong Stephens MD PCP Unavailable Carlos Middleton PCP Lorraine Hathaway MD PCP [facility], External Provider PCP Unavailable Encounter Details Care Team Description Date Type Department Contusion of hand(s) (Primar y Dx) 09/18/2000 Emergency [facility] Emergency Department [address] [address] Social History Date Tobacco [...]
--- OUTSIDE RECORDS SUMMARY | 2019-10-21 19:05 | XMS REPORT | Encounter Summary ---
Author Author [facility] Organization [facility] Address Unknown Phone Unavailable Care Team Providers Care Vascular Sonographer Name Role Phone Phong Stephens MD PCP Unavailable Robby Rajan APRN Unavailable Phong Stephens MD PCP Unavailable Carlos Middleton PCP Lorraine Hathaway MD PCP [facility], External Provider PCP Unavailable Encounter Details Care Team Description Date Type Department Lavell Lance MD Routine medical exam (Primary Dx) 10/04/1999 Outpatient [facility] Consol idated Historical [address] [address] Social History Date Tobacco Use Types Packs/Day [...]
--- OUTSIDE RECORDS SUMMARY | 2019-10-21 19:05 | XMS REPORT | Encounter Summary ---
Author Author [facility] Organization [facility] Address Unknown Phone Unavailable Care Team Providers Care Director Consumer Affairs Name Role Phone Phong Stephens MD PCP Unavailable Robby Rajan APRN Unavailable Phong Stephens MD PCP Unavailable Carlos Middleton PCP Lorraine Hathaway MD PCP [facility]cf, External Provider PCP Unavailable Encounter Details Care Team Description Date Type Department Reggie Ramirez MD NO ADDRESS ON FILE Inflam disease of breast (Primary Dx) 06/30/1999 Outpatient [facility] Consol idated Historical [address] [address] Social History Date Tobacco Use Types Packs/Day Years Used Never Assessed Sex Assigned at Date Recorded Not on file Industry Job Start Date Occupation Not on file Not on file Not on file Travel End Travel History Travel Start No recent travel history available. documented as of this encounter Plan of Treatment Not on filedocumented as of this encounter Visit Diagnoses Diagnosis Inflam disease of breast - Primary Inflammatory disease of breast documented in this encounter
--- OUTSIDE RECORDS SUMMARY | 2019-10-21 19:05 | XMS REPORT | Encounter Summary ---
Author Author [facility] Organization [facility] Address Unknown Phone Unavailable Care Team Providers Care Web Press Operator Name Role Phone Phong Stephens MD PCP Unavailable Robby Rajan APRN Unavailable Phong Stephens MD PCP Unavailable Carlos Middleton PCP Lorraine Hathaway MD PCP [facility]cf, External Provider PCP Unavailable Encounter Details Care Team Description Date Type Department Reggie Ramirez MD NO ADDRESS ON FILE Injury, other and unspecified, trunk (Pr imary Dx) 09/01/1999 Outpatient [facility] [address] [place] [address] Social History Date Tobacco Use [...] Visit Diagnoses Diagnosis Injury, other and unspecified, trunk - Primary documented in this encounter
--- OUTSIDE RECORDS SUMMARY | 2019-10-21 19:05 | XMS REPORT | Encounter Summary ---
Author Author [facility] Organization [facility] Address Unknown Phone Unavailable Care Team Providers Care Molybdenum Steamer Operator Name Role Phone Phong Stephens MD PCP Unavailable Robby Rajan APRN Unavailable Phong Stephens MD PCP Unavailable Carlos Middleton PCP Lorraine Hathaway MD PCP [facility], External Provider PCP Unavailable Encounter Details Care Team Description Date Type Department Contusion of knee (Primary D x) 10/14/2000 Emergency [facility] Emergency Department [address] [address] Social History Date Tobacco Use [...] this encounter Visit Diagnoses Diagnosis Contusion of knee - Primary documented in this encounter
--- OUTSIDE RECORDS SUMMARY | 2019-10-21 19:05 | XMS REPORT | Encounter Summary ---
[...] Details Care Team Description Date Type Department Mikel Mateusz W. [phone] Lumbago (Primary Dx) 02/17/2000 Outpatient [facility] [address] [address] Social History Date Tobacco [...]
--- OUTSIDE RECORDS SUMMARY | 2019-10-21 19:05 | XMS REPORT | Encounter Summary ---
Author Author [facility] Organization [facility] Address Unknown Phone Unavailable Care Team Providers Care Tank Riveter Name Role Phone Phong Stephens MD PCP Unavailable Robby Rajan APRN Unavailable Phong Stephens MD PCP Unavailable Carlos Middleton PCP Lorraine Hathaway MD PCP [facility]cf, External Provider PCP Unavailable Encounter Details Care Team Description Date Type Department Sukhi Grey [phone] Sprain of neck (Primary Dx) 06/30/1999 Emergency [facility] Emergency Department [address] [address] Social History Date Tobacco [...] this encounter Visit Diagnoses Diagnosis Sprain of neck - Primary Neck sprain and strain documented in this encounter
--- OUTSIDE RECORDS SUMMARY | 2019-10-21 19:05 | XMS REPORT | Encounter Summary ---
Author Author [facility] Organization [facility] Address Unknown Phone Unavailable Care Team Providers Care Casino Cage Manager Name Role Phone Phong Stephens MD PCP Unavailable Robby Rajan APRN Unavailable Phong Stephens MD PCP Unavailable Carlos Middleton PCP Lorraine Hathaway MD PCP [facility], External Provider PCP Unavailable Encounter Details Care Team Description Date Type Department Reggie Ramirez MD NO ADDRESS ON FILE Unspecified disease of pulmonary circula tion (Primary Dx) 01/16/2000 Outpatient [facility] Consol [address] [address] Social History Date Tobacco Use Types Packs/Day Years Used Never Assessed Sex Assigned at Date Recorded Not on file Industry Job Start Date Occupation Not on file Not on file Not on file Travel End Travel History Travel Start No recent travel history available. documented as of this encounter Plan of Treatment Not on filedocumented as of this encounter Visit Diagnoses Diagnosis Unspecified disease of pulmonary circul ation - Primary documented in this encounter
--- OUTSIDE RECORDS SUMMARY | 2019-10-21 19:05 | XMS REPORT | Encounter Summary ---
Author Author [facility] Organization [facility] Address Unknown Phone Unavailable Care Team Providers Care Department Of Natural Resources Officer Name Role Phone Phong Stephens MD PCP Unavailable Robby Rajan PUBLIC SPEAKING TEACHER Unavailable Phong Stephens MD PCP Unavailable Carlos Middleton PCP Lorraine Hathaway MD PCP [facility], External Provider PCP Unavailable Encounter Details Care Team Description Date Type Department Emy Bran APRN NO ADDRESS ON FILE Noninf gastroenterit NEC (Primary Dx) 06/14/2000 Emergency [facility] Emergency Department [address] [address] Social History Date Tobacco Use [...] as of this encounter Visit Diagnoses Diagnosis Noninf gastroenterit NEC - Primary Other and unspecified noninfectious gas troenteritis and colitis documented in this encounter
--- OUTSIDE RECORDS SUMMARY | 2019-10-21 19:05 | XMS REPORT | Encounter Summary ---
Author Author [facility] Organization [facility] Address Unknown Phone Unavailable Care Team Providers Care Crib Clerk Name Role Phone Phong Stephens MD PCP Unavailable Robby Rajan COUNTY HISTORIAN Unavailable Phong Stephens MD PCP Unavailable Carlos Middleton PCP Lorraine Hathaway MD PCP [facility], External Provider PCP Unavailable Encounter Details Care Team Description Date Type Department Self, Bubba Hsieh MD [address] [place] [address] Unspecified viral infection, in conditio ns classified elsewhere and of unspecified site (Primary Dx) 06/16/2000 Outpatient [facility] Consol idated Historical [facility] [address] [place] [address] Social History Date Tobacco Use Types Packs/Day Years Used Never Assessed Sex Assigned at Date Recorded Not on file Industry Job Start Date Occupation Not on file Not on file Not on file Travel End Travel History Travel Start No recent travel history available. documented as of this encounter Plan of Treatment Not on filedocumented as of this encounter Visit Diagnoses Diagnosis Unspecified viral infection, in conditi ons classified elsewhere and of unspecified site - Primary documented in this encounter
--- OUTSIDE RECORDS SUMMARY | 2019-10-21 19:05 | XMS REPORT | Encounter Summary ---
Author Author [facility] Organization [facility] Address Unknown Phone Unavailable Care Team Providers Care Bicycle Fitter Name Role Phone Phong Stephens MD PCP Unavailable Robby Rajan APRN Unavailable Phong Stephens MD PCP Unavailable Carlos Middleton PCP Lorraine Hathaway MD PCP [facility], External Provider PCP Unavailable Encounter Details Care Team Description Date Type Department Lee Wan, DO [address] [place] [address] Contusion of knee (Primary Dx) 11/09/1999 Emergency [facility] Emergency Department [address] [address] Social History Date Tobacco Use [...]
--- OUTSIDE RECORDS SUMMARY | 2019-10-21 19:05 | XMS REPORT | Encounter Summary ---
Author Author [facility] Organization [facility] Address Unknown Phone Unavailable Care Team Providers Care Door Clamper Name Role Phone Phong Stephens MD PCP Unavailable Robby Rajan APRN Unavailable Phong Stephens MD PCP Unavailable Carlos Middleton PCP Lorraine Hathaway MD PCP [facility], External Provider PCP Unavailable Encounter Details Care Team Description Date Type Department Joseph Arias MD Fx metacarpal NOS-closed (Primary Dx) 12/28/1999 Outpatient [facility] Consol idated Historical [address] [address] Social History Date Tobacco Use Types Packs/Day Years Used Never Assessed Sex Assigned at Date Recorded Not on file Industry Job Start Date Occupation Not on file Not on file Not on file Travel End Travel History Travel Start No recent travel history available. documented as of this encounter Plan of Treatment Not on filedocumented as of this encounter Visit Diagnoses Diagnosis Fx metacarpal NOS-closed - Primary Closed fracture of metacarpal bone(s), site unspecified documented in this encounter
--- OUTSIDE RECORDS SUMMARY | 2019-10-21 19:05 | XMS REPORT | Encounter Summary ---
Author Author [facility] Organization [facility] Address Unknown Phone Unavailable Care Team Providers Care Machine Guide Base Winder Name Role Phone Phong Stephens MD PCP Unavailable Robby Rajan APRN Unavailable Phong Stephens MD PCP Unavailable Carlos Middleton PCP Lorraine Hathaway MD PCP [facility], External Provider PCP Unavailable Encounter Details Care Team Description Date Type Department Joseph Arias MD Migraine, unspecified, without mention o f intractable migraine without mention of status migrainosus (Primary Dx) 05/13/1999 Outpatient [facility] [address] [place] [address] Social History Date Tobacco Use [...]
--- OUTSIDE RECORDS SUMMARY | 2019-10-21 19:05 | XMS REPORT | Encounter Summary ---
Author Author [facility] Organization [facility] Address Unknown Phone Unavailable Care Team Providers Care Dietary Supervisor Name Role Phone Phong Stephens MD PCP Unavailable Robby Rajan APRN Unavailable Phong Stephens MD PCP Unavailable Carlos Middleton PCP Lorraine Hathaway MD PCP [facility], External Provider PCP Unavailable Encounter Details Care Team Description Date Type Department Lavell Bautista MD [address] [place] [address] Acute sinusitis, unspecified (Primary Dx ) 06/25/1999 Outpatient [facility] Consol [address] [address] Social History Date Tobacco Use Types Packs/Day [...]
--- OUTSIDE RECORDS SUMMARY | 2019-10-21 19:05 | XMS REPORT | Encounter Summary ---
Author Author [facility] Organization [facility] Address Unknown Phone Unavailable Care Team Providers Care Day Light Relief Operator Name Role Phone Phong Stephens MD PCP Unavailable Robby Rajan APRN Unavailable Phong Stephens MD PCP Unavailable Carlos Middleton PCP Lorraine Hathaway MD PCP [facility], External Provider PCP Unavailable Encounter Details Care Team Description Date Type Department Reggie Ramirez MD NO ADDRESS ON FILE Bronchitis, not specified as acute or ch ronic (Primary Dx) 04/06/2000 Outpatient [facility] Consol [address] [address] Social History Date Tobacco Use Types Packs/Day Years Used Never Assessed Sex Assigned at Date Recorded Not on file Industry Job Start Date Occupation Not on file Not on file Not on file Travel End Travel History Travel Start No recent travel history available. documented as of this encounter Plan of Treatment Not on filedocumented as of this encounter Visit Diagnoses Diagnosis Bronchitis, not specified as acute or c hronic - Primary documented in this encounter
--- OUTSIDE RECORDS SUMMARY | 2019-10-21 19:05 | XMS REPORT | Encounter Summary ---
Author Author [facility] Organization [facility] Address Unknown Phone Unavailable Care Team Providers Care Chief Resource Officer Name Role Phone Phong Stephens MD PCP Unavailable Robby Rajan APRN Unavailable Phong Stephens MD PCP Unavailable Carlos Middleton PCP Lorraine Hathaway MD PCP [facility], External Provider PCP Unavailable Encounter Details Care Team Description Date Type Department Reggie Ramirez MD NO ADDRESS ON FILE Injury, other and unspecified, knee, leg , ankle, and foot (Primary Dx) 11/08/1999 [facility] [address] [place] [address] Social History Date Tobacco Use [...]
--- OUTSIDE RECORDS SUMMARY | 2019-10-21 19:05 | XMS REPORT | Encounter Summary ---
Author Author [facility] Organization [facility] Address Unknown Phone Unavailable Care Team Providers Care Carbon Brusher Assembler Name Role Phone Phong Stephens MD PCP Unavailable Robby Rajan APRN Unavailable Phong Stephens MD PCP Unavailable Carlos Middleton PCP Lorraine Hathaway MD PCP [facility], External Provider PCP Unavailable Encounter Details Care Team Description Date Type Department Reggie Ramirez MD NO ADDRESS ON FILE Acute upper respiratory infections of un specified site (Primary Dx) 06/09/1999 Outpatient [facility] Consol idated [address] [address] Social History Date Tobacco Use Types Packs/Day [...]
--- OUTSIDE RECORDS SUMMARY | 2019-10-21 19:06 | XMS REPORT | Encounter Summary ---
Author Author [facility] Organization [facility] Address Unknown Phone Unavailable Care Team Providers Care Wardrobe Supervisor Name Role Phone Phong Stephens MD PCP Unavailable Robby Rajan APRN Unavailable Phong Stephens MD PCP Unavailable Carlos Middleton PCP Lorraine Hathaway MD PCP [facility], External Provider PCP Unavailable Encounter Details Care Team Description Date Type Department Jr Yemi Nunn, [address] [place] [phone] Otalgia, unspecified (Primary Dx) 02/19/1999 Outpatient Historical Social History Date Tobacco Use [...]
--- OUTSIDE RECORDS SUMMARY | 2019-10-21 19:06 | XMS REPORT | Encounter Summary ---
Author Author [facility] Organization [facility] Address Unknown Phone Unavailable Care Team Providers Care Commercial Reporter Name Role Phone Phong Stephens MD PCP Unavailable Robby Rajan PRINTED CIRCUIT BOARD PANELS DEBURRER Unavailable Phong Stephens MD PCP Unavailable Carlos Middleton PCP Lorraine Hathaway MD PCP [facility], External Provider PCP Unavailable Encounter Details Care Team Description Date Type Department Self, Bubba Hsieh MD [address] [place] [address] Spasm of muscle (Primary Dx) 01/29/1999 Outpatient Historical Social History Date Tobacco Use [...] as of this encounter Visit Diagnoses Diagnosis Spasm of muscle - Primary documented in this encounter
--- OUTSIDE RECORDS SUMMARY | 2019-10-21 19:06 | XMS REPORT | Encounter Summary ---
Author Author [facility] Organization [facility] Address Unknown Phone Unavailable Care Team Providers Care Dry Plasterer Name Role Phone hPong Stephens MD PCP Unavailable Robby Rajan APRN Unavailable Phong Stephens MD PCP Unavailable Carlos Middleton PCP Lorraine Hathaway MD PCP [facility], External Provider PCP Unavailable Encounter Details Care Team Description Date Type Department [facility], [address] [place] [address] Abdominal pain, periumbilic (Primary Dx) 11/10/1998 Outpatient [facility] Cons[address] [address] Social History Date Tobacco Use Types Packs/Day [...]
--- OUTSIDE RECORDS SUMMARY | 2019-10-21 19:06 | XMS REPORT | Encounter Summary ---
Author Author [facility] Organization [facility] Address Unknown Phone Unavailable Care Team Providers Care Tmh Teacher Name Role Phone Phong Stephens MD PCP Unavailable Robby Rajan APRN Unavailable Phong Stephens MD PCP Unavailable Carlos Middleton PCP Lorraine Hathaway MD PCP [facility], External Provider PCP Unavailable Encounter Details Care Team Description Date Type Department [facility] [address] [place] [address] Abdominal pain, right upper quadrant (Pr imary Dx) 11/03/1998 Outpatient [facility] Consol [address] [address] Social History Date Tobacco Use Types Packs/Day [...] this encounter Visit Diagnoses Diagnosis Abdominal pain, right upper quadrant - Primary documented in this encounter
--- OUTSIDE RECORDS SUMMARY | 2019-10-21 19:06 | XMS REPORT | Encounter Summary ---
Author Author [facility] Organization [facility] Address Unknown Phone Unavailable Care Team Providers Care Hourly Shift Name Role Phone Phong Stephens MD PCP Unavailable Robby Rajan MILITARY COOK Unavailable Phong Stephens MD PCP Unavailable Carlos Middleton PCP Lorraine Hathaway MD PCP [facility], External Provider PCP Unavailable Encounter Details Care Team Description Date Type Department Teri Rutledge, MILITARY COOK [address] [place] [address] Serous conjunctivitis (Primary Dx) 12/15/1998 Outpatient Historical Social History Date Tobacco Use [...] as of this encounter Visit Diagnoses Diagnosis Serous conjunctivitis - Primary Serous conjunctivitis, except viral documented in this encounter
--- OUTSIDE RECORDS SUMMARY | 2019-10-21 19:06 | XMS REPORT | Encounter Summary ---
Author Author [facility] Organization [facility] Address Unknown Phone Unavailable Care Team Providers Care Melting Supervisor Name Role Phone hPong Stephens MD PCP Unavailable Robby Rajan APRN Unavailable Phong Stephens MD PCP Unavailable Carlos Middleton PCP Lorraine Hathaway MD PCP [facility], External Provider PCP Unavailable Encounter Details Care Team Description Date Type Department Jaron Duron [phone] Other screening mammogram (Primary Dx) 11/17/1998 Outpatient Historical Social History Date Tobacco Use [...] of this encounter Visit Diagnoses Diagnosis Other screening mammogram - Primary documented in this encounter
--- OUTSIDE RECORDS SUMMARY | 2019-10-21 19:06 | XMS REPORT | Encounter Summary ---
Author Author [facility] Organization [facility] Address Unknown Phone Unavailable Care Team Providers Care Life Skills Worker Name Role Phone Phong Stephens MD PCP Unavailable Robby Rajan HEADING AND PRIMING OPERATOR Unavailable Phong Stephens MD PCP Unavailable Carlos Middleton PCP Lorraine Hathaway MD PCP [facility], External Provider PCP Unavailable Encounter Details Care Team Description Date Type Department Self, Bubba Hsieh MD [address] [place] [phone] Lumbago (Primary Dx) 01/29/1999 Outpatient Historical Social History [...]
--- OUTSIDE RECORDS SUMMARY | 2019-10-21 19:06 | XMS REPORT | Encounter Summary ---
Author Author [facility] Organization [facility] Address Unknown Phone Unavailable Care Team Providers Care Shift Leader Name Role Phone Phong Stephens MD PCP Unavailable Robby Rajan APRN Unavailable Phong Stephens MD PCP Unavailable Carlos Middleton PCP Lorraine Hathaway MD PCP [facility], External Provider PCP Unavailable Encounter Details Care Team Description Date Type Department Reggie Ramirez MD NO ADDRESS ON FILE Joint pain-pelvis (Primary Dx) 11/24/1998 Outpatient Historical Social History Date Tobacco Use [...]
--- OUTSIDE RECORDS SUMMARY | 2019-10-21 19:06 | XMS REPORT | Encounter Summary ---
Author Author [facility] Organization [facility] Address Unknown Phone Unavailable Care Team Providers Care Parts Interpreter Name Role Phone Phong Stephens MD PCP Unavailable Robby Rajan APRN Unavailable Phong Stephens MD PCP Unavailable Carlos Middleton PCP Lorraine Hathaway MD PCP [facility] [place] [facility], External Provider PCP Unavailable Encounter Details Care Team Description Date Type Department Jaron Duron [phone] Retention of urine, unspecified (Primary Dx) 11/05/1998 Outpatient Historical Social History Date Tobacco Use [...] as of this encounter Visit Diagnoses Diagnosis Retention of urine, unspecified - Prima ry documented in this encounter
--- OUTSIDE RECORDS SUMMARY | 2019-10-21 19:06 | XMS REPORT | Encounter Summary ---
Author Author [facility] Organization [facility] Address Unknown Phone Unavailable Care Team Providers Care Brush Clearer Surveying Name Role Phone Phong Stephens MD PCP Unavailable Robby Rajan APRN Unavailable Phong Stephens MD PCP Unavailable Carlos Middleton PCP Lorraine Hathaway MD PCP [facility], External Provider PCP Unavailable Encounter Details Care Team Description Date Type Department Kali Grimes MD [address] [place] [address] Other malaise and fatigue (Primary Dx) 01/04/1999 Outpatient Historical Social History Date Tobacco Use [...]
--- OUTSIDE RECORDS SUMMARY | 2019-10-21 19:06 | XMS REPORT | Encounter Summary ---
Author Author [facility] Organization [facility] Address Unknown Phone Unavailable Care Team Providers Care Manager Life Insurance Name Role Phone Phong Stephens MD PCP Unavailable Robby Rajan APRN Unavailable Phong Stephens MD PCP Unavailable Carlos Middleton PCP Lorraine Hathaway MD PCP [facility], External Provider PCP Unavailable Encounter Details Care Team Description Date Type Department [facility], [address] [place] [address] Abdominal pain, right upper quadrant (Pr imary Dx) 11/08/1998 Outpatient Historical Social History Date Tobacco Use [...]
--- OUTSIDE RECORDS SUMMARY | 2019-10-21 19:06 | XMS REPORT | Encounter Summary ---
Author Author [facility] Organization [facility] Address Unknown Phone Unavailable Care Team Providers Care Co Teacher Name Role Phone Phong Stephens MD PCP Unavailable Robby Rajan APRN Unavailable Phong Stephens MD PCP Unavailable Carlos Middleton PCP Lorraine Hathaway MD PCP [facility], External Provider PCP Unavailable Encounter Details Care Team Description Date Type Department Lee Wan, DO [address] [place] [address] Vomiting alone (Primary Dx) 12/12/1998 Outpatient Historical Social History Date Tobacco Use [...]
--- OUTSIDE RECORDS SUMMARY | 2019-10-21 19:06 | XMS REPORT | Encounter Summary ---
Author Author [facility] Organization [facility] Address Unknown Phone Unavailable Care Team Providers Care Proposal Manager Name Role Phone Phong Stephens MD PCP Unavailable Robby Rajan APRN Unavailable Phong Stephens MD PCP Unavailable Carlos Middleton PCP Lorraine Hathaway MD PCP [facility], External Provider PCP Unavailable Encounter Details Care Team Description Date Type Department Reggie Ramirez MD NO ADDRESS ON FILE Lumbago (Primary Dx) 01/27/1999 Outpatient Historical Social History Date Tobacco Use [...]
--- OUTSIDE RECORDS SUMMARY | 2019-10-21 19:06 | XMS REPORT | Encounter Summary ---
Author Author [facility] Organization [facility] Address Unknown Phone Unavailable Care Team Providers Care Machine Gunner Name Role Phone Phong Stephens MD PCP Unavailable Robby Rajan APRN Unavailable Phong Stephens MD PCP Unavailable Carlos Middleton PCP Lorraine Hathaway MD PCP [facility], External Provider PCP Unavailable Encounter Details Care Team Description Date Type Department Reggie Ramirez MD NO ADDRESS ON FILE 01/12/1999 Outpatient [facility] Historical Social History Date Tobacco Use [...]
--- OUTSIDE RECORDS SUMMARY | 2019-10-21 19:06 | XMS REPORT | Encounter Summary ---
Author Author [facility] Organization [facility] Address Unknown Phone Unavailable Care Team Providers Care Arch Support Maker Name Role Phone Phong Stephens MD PCP Unavailable Robby Rajan APRN Unavailable Phong Stephens MD PCP Unavailable Carlos Middleton PCP Lorraine Hathaway MD PCP [facility], External Provider PCP Unavailable Encounter Details Care Team Description Date Type Department Cristofer Nowak MD [address] [place] [phone] Pain in limb (Primary Dx) 12/04/1998 Outpatient Historical Social History Date Tobacco Use [...]
--- OUTSIDE RECORDS SUMMARY | 2019-10-21 19:06 | XMS REPORT | Encounter Summary ---
Author Author [facility] Organization [facility] Address Unknown Phone Unavailable Care Team Providers Care Sleep Technician Name Role Phone Phong Stephens MD PCP Unavailable Robby Rajan APRN Unavailable Phong Stephens MD PCP Unavailable Carlos Middleton PCP Lorraine Hathaway MD PCP [facility] [place] [facility], External Provider PCP Unavailable Encounter Details Care Team Description Date Type Department Reggie Ramirez MD NO ADDRESS ON FILE 01/06/1999 Outpatient Historical Social History Date Tobacco Use [...]
--- OUTSIDE RECORDS SUMMARY | 2019-10-21 19:06 | XMS REPORT | Encounter Summary ---
Author Author [facility] Organization [facility] Address Unknown Phone Unavailable Care Team Providers Care Finish Opener Name Role Phone Phong Stephens MD PCP Unavailable Robby Rajan APRN Unavailable Phong Stephens MD PCP Unavailable Carlos Middleton PCP Lorraine Hathaway MD PCP [facility], External Provider PCP Unavailable Encounter Details Care Team Description Date Type Department [facility] [place], [address] [place] [address] Abdominal pain, right upper quadrant (Pr imary Dx) 10/26/1998 Outpatient Historical Social History Date Tobacco Use [...]
--- OUTSIDE RECORDS SUMMARY | 2019-10-21 19:06 | XMS REPORT | Encounter Summary ---
Author Author [facility] Organization [facility] Address Unknown Phone Unavailable Care Team Providers Care Auto Mechanic Apprentice Name Role Phone Phong Stephens MD PCP Unavailable Robby Rajan APRN Unavailable Phong Stephens MD PCP Unavailable Carlos Middleton PCP Lorraine Hathaway MD PCP [facility], External Provider PCP Unavailable Encounter Details Care Team Description Date Type Department Reggie Ramirez MD NO ADDRESS ON FILE Joint pain-l/leg (Primary Dx) 12/07/1998 Outpatient [facility] Consol idated Historical [address] [address] Social History Date Tobacco Use Types Packs/Day [...]
--- OUTSIDE RECORDS SUMMARY | 2019-10-21 19:06 | XMS REPORT | Encounter Summary ---
Author Author [facility] Organization [facility] Address Unknown Phone Unavailable Care Team Providers Care Hook And Eye Sewing Machine Operator Name Role Phone Phong Stephens MD PCP Unavailable Robby Rajan APRN Unavailable Phong Stephens MD PCP Unavailable Carlos Middleton PCP Lorraine Hathaway MD PCP [facility], External Provider PCP Unavailable Encounter Details Care Team Description Date Type Department Reggie Ramirez MD NO ADDRESS ON FILE Abdominal pain, unspecified site (Primar y Dx) 01/06/1999 Outpatient [facility] Historical [facility] [place] [address] Social History Date Tobacco Use Types Packs/Day [...]
--- OUTSIDE RECORDS SUMMARY | 2019-10-21 19:06 | XMS REPORT | Encounter Summary ---
Author Author [facility] Organization [facility] Address Unknown Phone Unavailable Care Team Providers Care Boom Worker Name Role Phone Phong Stephens MD PCP Unavailable Robby Rajan APRN Unavailable Phong Stephens MD PCP Unavailable Carlos Middleton PCP Lorraine Hathaway MD PCP [facility] [place] [facility], External Provider PCP Unavailable Encounter Details Care Team Description Date Type Department Jaron Duron [phone] Vaginitis and vulvovaginitis, unspecifie d (Primary Dx) 11/17/1998 Outpatient Historical Social History [...]
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
--- OUTSIDE RECORDS SUMMARY | 2019-10-21 19:06 | XMS REPORT | Encounter Summary ---
Author Author [facility] Organization [facility] Address Unknown Phone Unavailable Care Team Providers Care Veterinary Assistant Technician Name Role Phone Phogn Stephens MD PCP Unavailable Robby Rajan APRN Unavailable Phong Stephens MD PCP Unavailable Carlos Middleton PCP Lorraine Hathaway MD PCP [facility], External Provider PCP Unavailable Encounter Details Care Team Description Date Type Department Jr Yemi Nunn, [address] [place] [phone] Vomiting alone (Primary Dx) 01/05/1999 Outpatient Historical Social History [...]
--- OUTSIDE RECORDS SUMMARY | 2019-10-21 19:06 | XMS REPORT | Encounter Summary ---
Author Author [facility] Organization [facility] Address Unknown Phone Unavailable Care Team Providers Care Registered Radiation Therapist Name Role Phone Phong Stephens MD PCP Unavailable Robby Rajan APRN Unavailable Phong Stephens MD PCP Unavailable Carlos Middleton PCP Lorraine Hathaway MD PCP [facility], External Provider PCP Unavailable Encounter Details Care Team Description Date Type Department [facility] [place], [address] [place] [address] Abdominal pain, right upper quadrant (Pr imary Dx) 10/28/1998 Outpatient [facility] Historical Social History Date Tobacco Use Types [...]
--- OUTSIDE RECORDS SUMMARY | 2019-10-21 19:06 | XMS REPORT | Encounter Summary ---
Author Author [facility] Organization [facility] Address Unknown Phone Unavailable Care Team Providers Care Facilities Coordinator Name Role Phone Phong Stephens MD PCP Unavailable Robby Rajan APRN Unavailable Phong Stephens MD PCP Unavailable Carlos Middleton PCP Lorraine Hathaway MD PCP [facility], External Provider PCP Unavailable Encounter Details Care Team Description Date Type Department Reggie Ramirez MD NO ADDRESS ON FILE Vomiting alone (Primary Dx) 04/17/1999 Emergency [facility] Emergency Department [address] [address] Social History Date Tobacco [...]
--- OUTSIDE RECORDS SUMMARY | 2019-10-21 19:06 | XMS REPORT | Encounter Summary ---
Author Author [facility] Organization [facility] Address Unknown Phone Unavailable Care Team Providers Care Parliamentary Counsel Name Role Phone Phong Stephens MD PCP Unavailable Robby Rajan APRN Unavailable Phong Stephens MD PCP Unavailable Carlos Middleton PCP Lorraine Hathaway MD PCP [facility], External Provider PCP Unavailable Encounter Details Care Team Description Date Type Department Kali Grimes MD [address] [place] [address] Other malaise and fatigue (Primary Dx) 12/03/1998 Outpatient Historical Social History Date Tobacco Use [...]
--- OUTSIDE RECORDS SUMMARY | 2019-10-21 19:06 | XMS REPORT | Encounter Summary ---
Author Author [facility] Organization [facility] Address Unknown Phone Unavailable Care Team Providers Care Aviation Medicine Specialist Name Role Phone Phong Stephens MD PCP Unavailable Robby Rajan APRN Unavailable Phong Stephens MD PCP Unavailable Carlos Middleton PCP Lorraine Hathaway MD PCP [facility], External Provider PCP Unavailable Encounter Details Care Team Description Date Type Department Reggie Ramirez MD NO ADDRESS ON FILE Viral dis contact NEC (Primary Dx) 01/12/1999 Outpatient Historical Social History Date Tobacco Use [...] as of this encounter Visit Diagnoses Diagnosis Viral dis contact NEC - Primary Contact with or exposure to other viral diseases documented in this encounter
--- OUTSIDE RECORDS SUMMARY | 2019-10-21 19:07 | XMS REPORT | Encounter Summary ---
Author Author [facility] Organization [facility] Address Unknown Phone Unavailable Care Team Providers Care Stone Polisher Machine Name Role Phone Phong Stephens MD PCP Unavailable Robby Rajan APRN Unavailable Phong Stephens MD PCP Unavailable Carlos Middleton PCP Lorraine Hathaway MD PCP [facility], External Provider PCP Unavailable Encounter Details Care Team Description Date Type Department Az Leal MD [address] [place] [address] [phone] Cellulitis of leg (Primary Dx) 04/30/1998 Outpatient [facility] Historical Social History Date Tobacco Use Types [...] this encounter Visit Diagnoses Diagnosis Cellulitis of leg - Primary Cellulitis and abscess of leg, except f oot documented in this encounter
--- OUTSIDE RECORDS SUMMARY | 2019-10-21 19:07 | XMS REPORT | Encounter Summary ---
Author Author [facility] Organization [facility] Address Unknown Phone Unavailable Care Team Providers Care Fluorescent Lamp Replacer Name Role Phone Phong Stephens MD PCP Unavailable Robby Rajan APRN Unavailable Phong Stephens MD PCP Unavailable Carlos Middleton PCP Lorraine Hathaway MD PCP [facility], External Provider PCP Unavailable Encounter Details Care Team Description Date Type Department Reggie Ramirez MD NO ADDRESS ON FILE Routine medical exam (Primary Dx) 08/05/1998 Outpatient Historical Social History Date Tobacco Use [...]
--- OUTSIDE RECORDS SUMMARY | 2019-10-21 19:07 | XMS REPORT | Encounter Summary ---
Author Author [facility] Organization [facility] Address Unknown Phone Unavailable Care Team Providers Care Printed Forms Proofreader Name Role Phone Phong Stephens MD PCP Unavailable Robby Rajan APRN Unavailable Phong Stephens MD PCP Unavailable Carlos Middleton PCP Lorraine Hathaway MD PCP [facility], External Provider PCP Unavailable Encounter Details Care Team Description Date Type Department Reggie Ramirez MD NO ADDRESS ON FILE Urinary tract infection, site not specif ied (Primary Dx) 10/14/1998 Out[facility] Speech Therapy [address] [place] [id number] Social History Date Tobacco Use Types [...]
--- OUTSIDE RECORDS SUMMARY | 2019-10-21 19:07 | XMS REPORT | Encounter Summary ---
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
--- OUTSIDE RECORDS SUMMARY | 2019-10-21 19:07 | XMS REPORT | Encounter Summary ---
Author Author [facility] Organization [facility] Address Unknown Phone Unavailable Care Team Providers Care Immigration Officer Name Role Phone Phong Stephens MD PCP Unavailable Robby Rajan APRN Unavailable Phong Stephens MD PCP Unavailable Carlos Middleton PCP Lorraine Hathaway MD PCP [facility], External Provider PCP Unavailable Encounter Details Care Team Description Date Type Department Az Leal MD [address] [place] [address] [phone] Cellulitis of leg (Primary Dx) 05/06/1998 Outpatient Historical Social History Date Tobacco Use [...]
--- OUTSIDE RECORDS SUMMARY | 2019-10-21 19:07 | XMS REPORT | Encounter Summary ---
Author Author [facility] Organization [facility] Address Unknown Phone Unavailable Care Team Providers Care Event Services Manager Name Role Phone Phong Stephens MD PCP Unavailable Robby Rajan APRN Unavailable Phong Stephens MD PCP Unavailable Carlos Middleton PCP Lorraine Hathaway MD PCP [facility], External Provider PCP Unavailable Encounter Details Care Team Description Date Type Department Reggie Ramirez MD NO ADDRESS ON FILE Headache(784.0) (Primary Dx) 06/20/1998 Outpatient Historical Social History Date Tobacco Use [...]
--- OUTSIDE RECORDS SUMMARY | 2019-10-21 19:07 | XMS REPORT | Encounter Summary ---
Author Author [facility] Organization [facility] Address Unknown Phone Unavailable Care Team Providers Care Maternity Nurse Name Role Phone Phong Stephens MD PCP Unavailable Robby Rajan APRN Unavailable Phong Stephens MD PCP Unavailable Carlos Middleton PCP Lorraine Hathaway MD PCP [facility], External Provider PCP Unavailable Encounter Details Care Team Description Date Type Department Reggie Ramirez MD NO ADDRESS ON FILE Fx femur shaft-closed (Primary Dx) 07/22/1998 Outpatient Historical Social History Date Tobacco Use [...] of this encounter Visit Diagnoses Diagnosis Fx femur shaft-closed - Primary Closed fracture of shaft of femur documented in this encounter
--- OUTSIDE RECORDS SUMMARY | 2019-10-21 19:07 | XMS REPORT | Encounter Summary ---
Author Author [facility] Organization [facility] Address Unknown Phone Unavailable Care Team Providers Care Teacher Of The Deaf Name Role Phone Phong Stephens MD PCP Unavailable Robby Rajan APRN Unavailable Phong Stephens MD PCP Unavailable Carlos Middleton PCP Lorraine Hathaway MD PCP [facility], External Provider PCP Unavailable Encounter Details Care Team Description Date Type Department Lee Wan, DO [address] [place] [address] Nausea alone (Primary Dx) 07/01/1998 Outpatient Historical Social History Date Tobacco Use [...]
--- OUTSIDE RECORDS SUMMARY | 2019-10-21 19:07 | XMS REPORT | Encounter Summary ---
Author Author [facility] Organization [facility] Address Unknown Phone Unavailable Care Team Providers Care Photography Colorist Name Role Phone Phong Stephens MD PCP Unavailable Robby Rajan APRN Unavailable Phong Stephens MD PCP Unavailable Carlos Middleton PCP Lorraine Hathaway MD PCP [facility], External Provider PCP Unavailable Encounter Details Care Team Description Date Type Department Reggie Ramirez MD NO ADDRESS ON FILE Abdominal pain, other specified site (Pr imary Dx) 09/26/1998 Outpatient Historical Social History Date Tobacco Use [...]
--- OUTSIDE RECORDS SUMMARY | 2019-10-21 19:07 | XMS REPORT | Encounter Summary ---
Author Author [facility] Organization [facility] Address Unknown Phone Unavailable Care Team Providers Care Exhibitions Curator Name Role Phone Phong Stephens MD PCP Unavailable Robby Rajan APRN Unavailable Phong Stephens MD PCP Unavailable Carlos Middleton PCP Lorraine Hathaway MD PCP [facility], External Provider PCP Unavailable Encounter Details Care Team Description Date Type Department Lee Wan, DO [address] [place] [address] Headache(784.0) (Primary Dx) 06/28/1998 Outpatient Historical Social History Date Tobacco Use [...]
--- OUTSIDE RECORDS SUMMARY | 2019-10-21 19:07 | XMS REPORT | Encounter Summary ---
Author Author [facility] Organization [facility] Address Unknown Phone Unavailable Care Team Providers Care Switch Foreman Name Role Phone Phong Stephens MD PCP Unavailable Robby Rajan APRN Unavailable Phong Stephens MD PCP Unavailable Carlos Middleton PCP Lorraine Hathaway MD PCP [facility], External Provider PCP Unavailable Encounter Details Care Team Description Date Type Department Reggie Ramirez MD NO ADDRESS ON FILE Backache, unspecified (Primary Dx) 06/08/1998 Outpatient [facility] Historical Social History Date Tobacco [...]
--- OUTSIDE RECORDS SUMMARY | 2019-10-21 19:07 | XMS REPORT | Encounter Summary ---
Author Author [facility] Organization [facility] Address Unknown Phone Unavailable Care Team Providers Care Equipment Cleaner Name Role Phone Phong Stephens MD PCP Unavailable Robby Rajan APRN Unavailable Phong Stephens MD PCP Unavailable Carlos Middleton PCP Lorraine Hathaway MD PCP [facility], External Provider PCP Unavailable Encounter Details Care Team Description Date Type Department Reggie Ramirez MD NO ADDRESS ON FILE Acute pharyngitis (Primary Dx) 08/25/1998 Outpatient Historical Social History Date Tobacco Use [...]
--- OUTSIDE RECORDS SUMMARY | 2019-10-21 19:07 | XMS REPORT | Encounter Summary ---
Author Author [facility] Organization [facility] Address Unknown Phone Unavailable Care Team Providers Care Pediatric Dental Assistant Name Role Phone Phong Stephens MD PCP Unavailable Robby Rajan APRN Unavailable Phong Stephens MD PCP Unavailable Carlos Middleton PCP Lorraine Hathaway MD PCP [facility], External Provider PCP Unavailable Encounter Details Care Team Description Date Type Department Reggie Ramirez MD NO ADDRESS ON FILE Acute upper respiratory infections of un specified site (Primary Dx) 08/05/1998 Outpatient Historical Social History [...]
--- OUTSIDE RECORDS SUMMARY | 2019-10-21 19:07 | XMS REPORT | Encounter Summary ---
Author Author [facility] Organization [facility] Address Unknown Phone Unavailable Care Team Providers Care Hand Filer Balance Wheel Name Role Phone Phong Stephens MD PCP Unavailable Robby Rajan APRN Unavailable Phong Stephens MD PCP Unavailable Carlos Middleton PCP Lorraine Hathaway MD PCP [facility], External Provider PCP Unavailable Encounter Details Care Team Description Date Type Department Reggie Ramirez MD NO ADDRESS ON FILE 09/14/1998 Outpatient [facility] Historical Social History Date Tobacco Use Types [...]
--- OUTSIDE RECORDS SUMMARY | 2019-10-21 19:07 | XMS REPORT | Encounter Summary ---
Author Author [facility] Organization [facility] Address Unknown Phone Unavailable Care Team Providers Care Medical Housekeeper Name Role Phone Phong Stephens MD PCP Unavailable Robby Rajan APRN Unavailable Phong Stephens MD PCP Unavailable Carlos Middleton PCP Lorraine Hathaway MD PCP [facility], External Provider PCP Unavailable Encounter Details Care Team Description Date Type Department Reggie Ramirez MD NO ADDRESS ON FILE Acute upper respiratory infections of un specified site (Primary Dx) 07/15/1998 Outpatient Historical Social History Date Tobacco Use [...]
--- OUTSIDE RECORDS SUMMARY | 2019-10-21 19:07 | XMS REPORT | Encounter Summary ---
Author Author [facility] Organization [facility] Address Unknown Phone Unavailable Care Team Providers Care School Laboratory Technician Name Role Phone Phong Stephens MD PCP Unavailable Robby Rajan APRN Unavailable Phong Stephens MD PCP Unavailable Carlos Middleton PCP Lorraine Hathaway MD PCP [facility], External Provider PCP Unavailable Encounter Details Care Team Description Date Type Department Nausea with vomiting (Primar y Dx) 09/26/1998 Outpatient Historical Social History Date [...]
--- OUTSIDE RECORDS SUMMARY | 2019-10-21 19:07 | XMS REPORT | Encounter Summary ---
Author Author [facility] Organization [facility] Address Unknown Phone Unavailable Care Team Providers Care Amusement Park Ride Mechanic Name Role Phone Phong Stephens MD PCP Unavailable Robby Rajan APRN Unavailable Phong Stephens MD PCP Unavailable Carlos Middleton PCP Lorraine Hathaway MD PCP [facility], External Provider PCP Unavailable Encounter Details Care Team Description Date Type Department Kali Grimes MD [address] [place] [address] Other malaise and fatigue (Primary Dx) 10/11/1998 Outpatient Historical Social History Date Tobacco Use [...]
--- OUTSIDE RECORDS SUMMARY | 2019-10-21 19:07 | XMS REPORT | Encounter Summary ---
Author Author [facility] Organization [facility] Address Unknown Phone Unavailable Care Team Providers Care Parish Visitor Name Role Phone Phong Stephens MD PCP Unavailable Robby Rajan APRN Unavailable Phong Stephens MD PCP Unavailable Carlos Middleton PCP Lorraine Hathaway MD PCP [facility], External Provider PCP Unavailable Encounter Details Care Team Description Date Type Department Az Leal MD [address] [place] [address] [phone] 04/22/1998 Outpatient Historical Social History Date Tobacco Use [...]
--- OUTSIDE RECORDS SUMMARY | 2019-10-21 19:07 | XMS REPORT | Encounter Summary ---
Author Author [facility] Organization [facility] Address Unknown Phone Unavailable Care Team Providers Care Coffee Bar Attendant Name Role Phone Phong Stephens MD PCP Unavailable Robby Rajan APRN Unavailable Phong Stephens MD PCP Unavailable Carlos Middleton PCP Lorraine Hathaway MD PCP [facility], External Provider PCP Unavailable Encounter Details Care Team Description Date Type Department Reggie Ramirez MD NO ADDRESS ON FILE Fx femur shaft-closed (Primary Dx) 05/14/1998 Outpatient [facility] Historical Social History Date Tobacco Use Types [...]
--- OUTSIDE RECORDS SUMMARY | 2019-10-21 19:07 | XMS REPORT | Encounter Summary ---
Author Author [facility] Organization [facility] Address Unknown Phone Unavailable Care Team Providers Care Filling And Packing Supervisor Name Role Phone Phong Stephens MD PCP Unavailable Robby Rajan APRN Unavailable Phong Stephens MD PCP Unavailable Carlos Middleton PCP Lorraine Hathaway MD PCP [facility], External Provider PCP Unavailable Encounter Details Care Team Description Date Type Department Reggie Ramirez MD NO ADDRESS ON FILE Headache(784.0) (Primary Dx) 05/10/1998 Outpatient Historical Social History Date Tobacco Use [...]
--- OUTSIDE RECORDS SUMMARY | 2019-10-21 19:07 | XMS REPORT | Encounter Summary ---
Author Author [facility] Organization [facility] Address Unknown Phone Unavailable Care Team Providers Care Reactor Kettle Operator Name Role Phone Phong Stephens MD PCP Unavailable Robby Rajan APRN Unavailable Phong Stephens MD PCP Unavailable Carlos Middleton PCP Lorraine Hathaway MD PCP [facility], External Provider PCP Unavailable Encounter Details Care Team Description Date Type Department Reggie Ramirez MD NO ADDRESS ON FILE Poisoning-antidepressant (Primary Dx) 09/01/[address] [address] Social History Date Tobacco Use Types Packs/Day Years Used Never Assessed Sex Assigned at Date Recorded Not on file Industry Job Start Date Occupation Not on file Not on file Not on file Travel End Travel History Travel Start No recent travel history available. documented as of this encounter Plan of Treatment Not on filedocumented as of this encounter Visit Diagnoses Diagnosis Poisoning-antidepressant - Primary Poisoning by antidepressant, unspecifie d documented in this encounter
--- OUTSIDE RECORDS SUMMARY | 2019-10-21 19:07 | XMS REPORT | Encounter Summary ---
Author Author [facility] Organization [facility] Address Unknown Phone Unavailable Care Team Providers Care Law Writer Name Role Phone Phong Stephens MD PCP Unavailable Robby Rajan APRN Unavailable Phong Stephens MD PCP Unavailable Carlos Middleton PCP Lorraine Hathaway MD PCP [facility], External Provider PCP Unavailable Encounter Details Care Team Description Date Type Department Reggie Ramirez MD NO ADDRESS ON FILE Pain in joint, multiple sites (Primary D x) 09/14/1998 Outpatient [facility] Historical Social [...]
--- OUTSIDE RECORDS SUMMARY | 2019-10-21 19:07 | XMS REPORT | Encounter Summary ---
Author Author [facility] Organization [facility] Address Unknown Phone Unavailable Care Team Providers Care Chief Radiologic Technologist Name Role Phone Phong Stephens MD PCP Unavailable Robby Rajan APRN Unavailable Phong Stephens MD PCP Unavailable Carlos Middleton PCP Lorraine Hathaway MD PCP [facility], External Provider PCP Unavailable Encounter Details Care Team Description Date Type Department Az Leal MD [address] [place] [address] [phone] Cellulitis of leg (Primary Dx) 05/04/1998 Outpatient [facility] Historical Social History Date Tobacco Use Types [...]
--- OUTSIDE RECORDS SUMMARY | 2019-10-21 19:07 | XMS REPORT | Encounter Summary ---
Author Author [facility] Organization [facility] Address Unknown Phone Unavailable Care Team Providers Care Meter Attendant Name Role Phone Phong Stephens MD PCP Unavailable Robby Rajan APRN Unavailable Phong Stephens MD PCP Unavailable Carlos Middleton PCP Lorraine Hathaway MD PCP [facility], External Provider PCP Unavailable Encounter Details Care Team Description Date Type Department Sukhi Grey [phone] Headache(784.0) (Primary Dx) 06/30/1998 Outpatient Historical Social History Date Tobacco Use [...]
--- OUTSIDE RECORDS SUMMARY | 2019-10-21 19:07 | XMS REPORT | Encounter Summary ---
Author Author [facility] Organization [facility] Address Unknown Phone Unavailable Care Team Providers Care Advanced Solutions Architect Name Role Phone Phong Stephens MD PCP Unavailable Robby Rajan APRN Unavailable Phong Stephens MD PCP Unavailable Carlos Middleton PCP Lorraine Hathaway MD PCP [facility], External Provider PCP Unavailable Encounter Details Care Team Description Date Type Department Reggie Ramirez MD NO ADDRESS ON FILE Abdominal pain, other specified site (Pr imary Dx) 09/28/1998 Outpatient [facility] Historical Social History Date Tobacco [...]
--- OUTSIDE RECORDS SUMMARY | 2019-10-21 19:07 | XMS REPORT | Encounter Summary ---
Author Author [facility] Organization [facility] Address Unknown Phone Unavailable Care Team Providers Care Smt Machine Operator Name Role Phone Phong Stephens MD PCP Unavailable Robby Rajan APRN Unavailable Phong Stephens MD PCP Unavailable Carlos Middleton PCP Lorraine Hathaway MD PCP [facility], External Provider PCP Unavailable Encounter Details Care Team Description Date Type Department Open wound of finger(s) , wi thout mention of complication (Primary Dx) 10/22/1998 Outpatient Historical Social History Date Tobacco Use [...] encounter Visit Diagnoses Diagnosis Open wound of finger(s) , without menti on of complication - Primary documented in this encounter
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
--- OUTSIDE RECORDS SUMMARY | 2019-10-21 19:08 | XMS REPORT | Encounter Summary ---
Author Author [facility] Organization [facility] Address Unknown Phone Unavailable Care Team Providers Care Waist Cutter Name Role Phone Phong Stephens MD PCP Unavailable Robby Rajan APRN Unavailable Phong Stephens MD PCP Unavailable Carlos Middleton PCP Lorraine Hathaway MD PCP [facility], External Provider PCP Unavailable Encounter Details Care Team Description Date Type Department Turner Cabral, [address] [place] [id number] Fx femur shaft-closed (Primary Dx) 12/30/1997 Outpatient Historical Social History Date Tobacco Use [...]
--- OUTSIDE RECORDS SUMMARY | 2019-10-21 19:08 | XMS REPORT | Encounter Summary ---
Author Author [facility] Organization [facility] Address Unknown Phone Unavailable Care Team Providers Care Barber Shop Operator Name Role Phone Phong Stephens MD PCP Unavailable Robby Rajan APRN Unavailable Phong Stephens MD PCP Unavailable Carlos Middleton PCP Lorraine Hathaway MD PCP [facility], External Provider PCP Unavailable Encounter Details Care Team Description Date Type Department Reggie Ramirez MD NO ADDRESS ON FILE 04/08/1998 Outpatient Historical Social History Date Tobacco Use [...]
--- OUTSIDE RECORDS SUMMARY | 2019-10-21 19:08 | XMS REPORT | Encounter Summary ---
Author Author [facility] Organization [facility] Address Unknown Phone Unavailable Care Team Providers Care Jig Builder Name Role Phone Phong Stephens MD PCP Unavailable Robby Rajan APRN Unavailable Phong Stephens MD PCP Unavailable Carlos Middleton PCP Lorraine Hathaway MD PCP [facility], External Provider PCP Unavailable Encounter Details Care Team Description Date Type Department Lee Wan, DO [address] [place] [address] Contusion of knee (Primary Dx) 10/27/1997 Outpatient Historical Social History Date Tobacco Use [...]
--- OUTSIDE RECORDS SUMMARY | 2019-10-21 19:08 | XMS REPORT | Encounter Summary ---
Author Author [facility] Organization [facility] Address Unknown Phone Unavailable Care Team Providers Care Rn Camp Name Role Phone Phong Stephens MD PCP Unavailable Robby Rajan APRN Unavailable Phong Stephens MD PCP Unavailable Carlos Middleton PCP Lorraine Hathaway MD PCP [facility], External Provider PCP Unavailable Encounter Details Care Team Description Date Type Department Reggie Ramirez MD NO ADDRESS ON FILE Chest pain, unspecified (Primary Dx) 11/30/1997 Outpatient Historical Social History Date Tobacco Use [...]
--- OUTSIDE RECORDS SUMMARY | 2019-10-21 19:08 | XMS REPORT | Encounter Summary ---
Author Author [facility] Organization [facility] Address Unknown Phone Unavailable Care Team Providers Care Car Varnisher Name Role Phone Phong Stephens MD PCP Unavailable Robby Rajan APRN Unavailable Phnog Stephens MD PCP Unavailable Carlos Middleton PCP Lorraine Hathaway MD PCP [facility], External Provider PCP Unavailable Encounter Details Care Team Description Date Type Department Az Leal MD [address] [place] [address] [phone] 03/18/1998 Outpatient Historical Social History Date Tobacco Use [...]
--- OUTSIDE RECORDS SUMMARY | 2019-10-21 19:08 | XMS REPORT | Encounter Summary ---
Author Author [facility] Organization [facility] Address Unknown Phone Unavailable Care Team Providers Care Rubber Factory Worker Name Role Phone Phong Stephens MD PCP Unavailable Robby Rajan APRN Unavailable Phong Stephens MD PCP Unavailable Carlos Middleton PCP Lorraine Hathaway MD PCP [facility], External Provider PCP Unavailable Encounter Details Care Team Description Date Type Department Headache(784.0) (Primary Dx) 10/20/1997 Outpatient Historical Social History Date Tobacco Use [...]
--- OUTSIDE RECORDS SUMMARY | 2019-10-21 19:08 | XMS REPORT | Encounter Summary ---
Author Author [facility] Organization [facility] Address Unknown Phone Unavailable Care Team Providers Care Counter Installer Name Role Phone Phong Stephens MD PCP Unavailable Robby Rajan APRN Unavailable Phong Stephens MD PCP Unavailable Carlos Middleton PCP Lorraine Hathaway MD PCP [facility], External Provider PCP Unavailable Encounter Details Care Team Description Date Type Department Az Leal MD [address] [place] [address] [phone] Observ-suspect cond NEC (Primary Dx) 03/15/1998 Outpatient Historical Social History Date Tobacco Use [...] as of this encounter Visit Diagnoses Diagnosis Observ-suspect cond NEC - Primary Observation and evaluation for other sp ecified suspected conditions documented in this encounter
--- OUTSIDE RECORDS SUMMARY | 2019-10-21 19:08 | XMS REPORT | Encounter Summary ---
Author Author [facility] Organization [facility] Address Unknown Phone Unavailable Care Team Providers Care Director Of Assessing Name Role Phone Phong Stephens MD PCP Unavailable Robby Rajan APRN Unavailable Phong Stephens MD PCP Unavailable Carlos Middleton PCP Lorraine Hathaway MD PCP [facility], External Provider PCP Unavailable Encounter Details Care Team Description Date Type Department Reggie Ramirez MD NO ADDRESS ON FILE prison (current) use of anticoagulant s (Primary Dx) 01/28/1998 Inpatient [facility] [address] [address] Social History Date Tobacco Use [...] as of this encounter Visit Diagnoses Diagnosis 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
--- OUTSIDE RECORDS SUMMARY | 2019-10-21 19:08 | XMS REPORT | Encounter Summary ---
Author Author [facility] Organization [facility] Address Unknown Phone Unavailable Care Team Providers Care Clam Shucking Machine Tender Name Role Phone Phong Stephens MD PCP Unavailable Robby Rajan APRN Unavailable Phong Stephens MD PCP Unavailable Carlos Middleton PCP Lorraine Hathaway MD PCP [facility], External Provider PCP Unavailable Encounter Details Care Team Description Date Type Department Jr Yemi Nunn, [address] [place] [phone] Injury, other and unspecified, trunk (Pr imary Dx) 10/21/1997 Outpatient [facility] Historical [address] [place] [address] Social History Date Tobacco Use Types Packs/Day [...]
--- OUTSIDE RECORDS SUMMARY | 2019-10-21 19:08 | XMS REPORT | Encounter Summary ---
Author Author [facility] Organization [facility] Address Unknown Phone Unavailable Care Team Providers Care Driver Courier Name Role Phone Phong Stephens MD PCP Unavailable Robby Rajan APRN Unavailable Phong Stephens MD PCP Unavailable Carlos Middleton PCP Lorraine aHthaway MD [facility]CP [facility], External Provider PCP Unavailable Encounter Details Care Team Description Date Type Department Juan Gwendolyn Terrence [phone] 03/07/1998 Outpatient Historical Social History Date Tobacco Use [...]
--- OUTSIDE RECORDS SUMMARY | 2019-10-21 19:08 | XMS REPORT | Encounter Summary ---
Author Author [facility] Organization [facility] Address Unknown Phone Unavailable Care Team Providers Care Autocad Electrical Designer Name Role Phone Phong Stephens MD PCP Unavailable Robby Rajan APRN Unavailable Phong Stephens MD PCP Unavailable Carlos Middleton PCP Lorraine Hathaway MD PCP [facility], External Provider PCP Unavailable Encounter Details Care Team Description Date Type Department Reggie Ramirez MD NO ADDRESS ON FILE 04/05/1998 Outpatient Historical Social History Date Tobacco Use [...]
--- OUTSIDE RECORDS SUMMARY | 2019-10-21 19:08 | XMS REPORT | Encounter Summary ---
Author Author [facility] Organization [facility] Address Unknown Phone Unavailable Care Team Providers Care Violin Mechanic Name Role Phone Phong Stephens MD PCP Unavailable Robby Rajan APRN Unavailable Phong Stephens MD PCP Unavailable Carlos Middleton PCP Lorraine Hathaway MD PCP [facility], External Provider PCP Unavailable Encounter Details Care Team Description Date Type Department Sukhi Grey [phone] Injury, other and unspecified, other spe cified sites, including multiple (Primary Dx) 12/30/1997 Outpatient Historical Social History [...] Visit Diagnoses Diagnosis Injury, other and unspecified, other sp ecified sites, including multiple - Primary documented in this encounter
--- OUTSIDE RECORDS SUMMARY | 2019-10-21 19:08 | XMS REPORT | Encounter Summary ---
Author Author [facility] Organization [facility] Address Unknown Phone Unavailable Care Team Providers Care Bundler Name Role Phone Phong Stephens MD PCP Unavailable Robby Rajan APRN Unavailable Phong Stephens MD PCP Unavailable Carlos Middleton PCP Lorraine Hathaway MD PCP [facility], External Provider PCP Unavailable Encounter Details Care Team Description Date Type Department Gertrudis Hermosillo MD NO ADDRESS ON FILE Other postoperative infection (Primary D x) 03/08/1998 Outpatient [facility] Historical Social History Date Tobacco Use [...]
--- OUTSIDE RECORDS SUMMARY | 2019-10-21 19:08 | XMS REPORT | Encounter Summary ---
Author Author [facility] Organization [facility] Address Unknown Phone Unavailable Care Team Providers Care Early Breastfeeding Care Specialist Name Role Phone Phong Stephens MD PCP Unavailable Robby Rajan APRN Unavailable Phong Stephens MD PCP Unavailable Carlos Middleton PCP Lorraine Hathaway MD PCP [facility], External Provider PCP Unavailable Encounter Details Care Team Description Date Type Department Az Leal MD [address] [place] [address] [phone] Cellulitis of leg (Primary Dx) 03/14/1998 Outpatient Historical Social History Date Tobacco Use [...]
--- OUTSIDE RECORDS SUMMARY | 2019-10-21 19:08 | XMS REPORT | Encounter Summary ---
Author Author [facility] Organization [facility] Address Unknown Phone Unavailable Care Team Providers Care Retirement Benefits Specialist Name Role Phone Phong Stephens MD PCP Unavailable Robby Rajan APRN Unavailable Phong Stephens MD PCP Unavailable Carlos Middleton PCP Lorraine Hathaway MD PCP [facility], External Provider PCP Unavailable Encounter Details Care Team Description Date Type Department Turner Cabral, [address] [place] [id number] Fx femur shaft-closed (Primary Dx) 12/30/1997 Outpatient [...]
--- OUTSIDE RECORDS SUMMARY | 2019-10-21 19:08 | XMS REPORT | Encounter Summary ---
Author Author [facility] Organization [facility] Address Unknown Phone Unavailable Care Team Providers Care Tractor Driver Teamster Name Role Phone Phong Stephens MD PCP Unavailable Robby Rajan APRN Unavailable Phong Stephens MD PCP Unavailable Carlos Middleton PCP Lorraine Hathaway MD PCP [facility], External Provider PCP Unavailable Encounter Details Care Team Description Date Type Department Lee Wan, DO [address] [place] [address] Nausea with vomiting (Primary Dx) 01/18/1998 Outpatient Historical Social History Date Tobacco Use [...]
--- OUTSIDE RECORDS SUMMARY | 2019-10-21 19:08 | XMS REPORT | Encounter Summary ---
Author Author [facility] Organization [facility] Address Unknown Phone Unavailable Care Team Providers Care Overhauler Name Role Phone Phong Stephens MD PCP Unavailable Robby Rajan APRN Unavailable Phong Stephens MD PCP Unavailable Carlos Middleton PCP Lorraine Hathaway MD PCP [facility], External Provider PCP Unavailable Encounter Details Care Team Description Date Type Department Reggie Ramirez MD NO ADDRESS ON FILE Other postoperative infection (Primary D x) 01/19/1998 Inpatient Historical Social History Date Tobacco Use [...]
--- OUTSIDE RECORDS SUMMARY | 2019-10-21 19:08 | XMS REPORT | Encounter Summary ---
Author Author [facility] Organization [facility] Address Unknown Phone Unavailable Care Team Providers Care Prototype Machinist Name Role Phone Phong Stephens MD PCP Unavailable Robby Rajan APRN Unavailable Phong Stephens MD PCP Unavailable Carlos Middleton PCP Lorraine Hathaway MD PCP [facility], External Provider PCP Unavailable Encounter Details Care Team Description Date Type Department Lee Wan, DO [address] [place] [address] Lumbago (Primary Dx) 10/05/1997 Outpatient Historical Social History Date Tobacco Use [...]
--- OUTSIDE RECORDS SUMMARY | 2019-10-21 19:08 | XMS REPORT | Encounter Summary ---
Author Author [facility] Organization [facility] Address Unknown Phone Unavailable Care Team Providers Care Window Air Conditioner Installer Name Role Phone Phong Stephens MD PCP Unavailable Robby Rajan APRN Unavailable Phong Stephens MD PCP Unavailable Carlos Middleton PCP Lorraine Hathaway MD PCP [facility], External Provider PCP Unavailable Encounter Details Care Team Description Date Type Department Az Leal MD [address] [place] [address] [phone] 04/15/1998 Outpatient [facility] Historical Social History Date Tobacco [...]
--- OUTSIDE RECORDS SUMMARY | 2019-10-21 19:08 | XMS REPORT | Encounter Summary ---
Author Author [facility] Organization [facility] Address Unknown Phone Unavailable Care Team Providers Care Refractory Mixer Name Role Phone Phong Stephens MD PCP Unavailable Robby Rajan APRN Unavailable Phong Stephens MD PCP Unavailable Carlos Middleton PCP Lorraine Hathaway MD PCP [facility], External Provider PCP Unavailable Encounter Details Care Team Description Date Type Department Reggie Ramirez MD NO ADDRESS ON FILE Pois-anticonvul NEC/NOS (Primary Dx) 11/06/1997 Inpatient Historical Social History Date Tobacco Use [...] as of this encounter Visit Diagnoses Diagnosis Pois-anticonvul NEC/NOS - Primary Poisoning by other and unspecified anti convulsants documented in this encounter
--- OUTSIDE RECORDS SUMMARY | 2019-10-21 19:08 | XMS REPORT | Encounter Summary ---
Author Author [facility] Organization [facility] Address Unknown Phone Unavailable Care Team Providers Care Key Punch Teacher Name Role Phone Phong Stephens MD PCP Unavailable Robby Rajan APRN Unavailable Phong Stephens MD PCP Unavailable Carlos Middleton PCP Lorraine Hathaway MD PCP [facility], External Provider PCP Unavailable Encounter Details Care Team Description Date Type Department Reggie Ramirez MD NO ADDRESS ON FILE Migraine, unspecified, without mention o f intractable migraine without mention of status migrainosus (Primary Dx) 10/25/1997 Outpatient Historical Social History Date Tobacco Use [...]
--- OUTSIDE RECORDS SUMMARY | 2019-10-21 19:08 | XMS REPORT | Encounter Summary ---
Author Author [facility] Organization [facility] Address Unknown Phone Unavailable Care Team Providers Care Electron Beam Photo Mask Maker Name Role Phone Phong Stephens MD PCP Unavailable Robby Rajan APRN Unavailable Phong Stephens MD PCP Unavailable Carlos Middleton PCP Lorraine Hathaway MD PCP [facility], External Provider PCP Unavailable Encounter Details Care [...]
--- OUTSIDE RECORDS SUMMARY | 2019-10-21 19:08 | XMS REPORT | Encounter Summary ---
Author Author [facility] Organization [facility] Address Unknown Phone Unavailable Care Team Providers Care Health Assessment And Treatment Teacher Name Role Phone Phong Stephens MD PCP Unavailable Robby Rajan APRN Unavailable Phong Stephens MD PCP Unavailable Carlos Middleton PCP Lorraine Hathaway MD PCP [facility], External Provider PCP Unavailable Encounter Details Care Team Description Date Type Department Az Leal MD [address] [place] [address] [phone] 04/01/1998 Outpatient Historical Social History Date Tobacco Use [...]
--- OUTSIDE RECORDS SUMMARY | 2019-10-21 19:08 | XMS REPORT | Encounter Summary ---
Author Author [facility] Organization [facility] Address Unknown Phone Unavailable Care Team Providers Care Silver Recovery Operator Name Role Phone Phong Stephens MD PCP Unavailable Robby Rajan APRN Unavailable Phong Stephens MD PCP Unavailable Carlos Middleton PCP Lorraine Hathaway MD PCP [facility], External Provider PCP Unavailable Encounter Details Care Team Description Date Type Department Lee Wan, DO [address] [place] [address] Other forms of migraine, without mention of intractable migraine without mention of status migrainosus (Primary Dx) 11/03/1997 Outpatient Historical Social History Date Tobacco Use [...]
--- OUTSIDE RECORDS SUMMARY | 2019-10-21 19:08 | XMS REPORT | Encounter Summary ---
Author Author [facility] Organization [facility] Address Unknown Phone Unavailable Care Team Providers Care Hourly Caregiver Name Role Phone Phong Stephens MD PCP Unavailable Robby Rajan APRN Unavailable Phong Stephens MD PCP Unavailable Carlos Middleton PCP Lorraine Hathaway MD PCP [facility], External Provider PCP Unavailable Encounter Details Care Team Description Date Type Department Reggie Ramirez MD NO ADDRESS ON FILE 04/14/1998 Outpatient Historical Social History Date Tobacco Use [...]
--- OUTSIDE RECORDS SUMMARY | 2019-10-21 19:08 | XMS REPORT | Encounter Summary ---
Author Author [facility] Organization [facility] Address Unknown Phone Unavailable Care Team Providers Care Cardiovascular Disease Specialist Name Role Phone Phong Stephens MD PCP Unavailable Robby Rajan APRN Unavailable Phong Stephens MD PCP Unavailable Carlos Middleton PCP Lorraine Hathaway MD PCP [facility], External Provider PCP Unavailable Encounter Details Care Team Description Date Type Department Reggie Ramirez MD NO ADDRESS ON FILE Joint pain-pelvis (Primary Dx) 03/28/1998 Outpatient Historical Social History Date Tobacco Use [...]
--- OUTSIDE RECORDS SUMMARY | 2019-10-21 19:08 | XMS REPORT | Encounter Summary ---
Author Author [facility] Organization [facility] Address Unknown Phone Unavailable Care Team Providers Care Carbon Setter Name Role Phone Phong Stephens MD PCP Unavailable Robby Rajan APRN Unavailable Phong Stephens MD PCP Unavailable Carlos Middleton PCP Lorraine Hathaway MD PCP [facility], External Provider PCP Unavailable Encounter Details Care Team Description Date Type Department Az Leal MD [address] [place] [address] [phone] 03/24/1998 Outpatient Historical Social History Date Tobacco Use [...]
--- OUTSIDE RECORDS SUMMARY | 2019-10-21 19:09 | XMS REPORT | Encounter Summary ---
Author Author [facility] Organization [facility] Address Unknown Phone Unavailable Care Team Providers Care Sales Support Engineer Name Role Phone Phong Stephens MD PCP Unavailable Robby Rajan APRN Unavailable Phong Stephens MD PCP Unavailable Carlos Middleton PCP Lorraine Hathaway MD PCP [facility], External Provider PCP Unavailable Encounter Details Care Team Description Date Type Department Abdominal pain, other specif ied site (Primary Dx) 07/21/1997 Outpatient Historical Social History Date Tobacco Use [...]
--- OUTSIDE RECORDS SUMMARY | 2019-10-21 19:09 | XMS REPORT | Encounter Summary ---
Author Author [facility] Organization [facility] Address Unknown Phone Unavailable Care Team Providers Care Rag Sorter And Cutter Name Role Phone Phong Stephens MD PCP Unavailable Robby Rajan APRN Unavailable Phong Stephens MD PCP Unavailable Carlos Middleton PCP Lorraine Hathaway MD PCP [facility], External Provider PCP Unavailable Encounter Details Care Team Description Date Type Department Reggie Ramirez MD NO ADDRESS ON FILE Chest pain, unspecified (Primary Dx) 09/17/1996 Outpatient Historical Social History Date Tobacco Use [...]
--- OUTSIDE RECORDS SUMMARY | 2019-10-21 19:09 | XMS REPORT | Encounter Summary ---
Author Author [facility] Organization [facility] Address Unknown Phone Unavailable Care Team Providers Care Ammunition Storage Superintendent Name Role Phone Phong Stephens MD PCP Unavailable Robby Rajan APRN Unavailable Phong Stephens MD PCP Unavailable Carlos Middleton PCP Lorraine Hathaway MD PCP [facility], External Provider PCP Unavailable Encounter Details Care Team Description Date Type Department Sprain acromioclavicular (Pr imary Dx) 12/03/1996 Outpatient Historical Social History Date Tobacco Use [...] of this encounter Visit Diagnoses Diagnosis Sprain acromioclavicular - Primary Acromioclavicular (joint) (ligament) sp rain documented in this encounter
--- OUTSIDE RECORDS SUMMARY | 2019-10-21 19:09 | XMS REPORT | Encounter Summary ---
Author Author [facility] Organization [facility] Address Unknown Phone Unavailable Care Team Providers Care Crook Operator Name Role Phone Phong Stephens MD PCP Unavailable Robby Rajan APRN Unavailable Phong Stephens MD PCP Unavailable Carlos Middleton PCP Lorraine Hathaway MD PCP [facility], External Provider PCP Unavailable Encounter Details Care Team Description Date Type Department Abdominal pain, epigastric ( Primary Dx) 01/08/1997 Outpatient Historical Social History Date Tobacco Use [...] this encounter Visit Diagnoses Diagnosis Abdominal pain, epigastric - Primary documented in this encounter
--- OUTSIDE RECORDS SUMMARY | 2019-10-21 19:09 | XMS REPORT | Encounter Summary ---
Author Author [facility] Organization [facility] Address Unknown Phone Unavailable Care Team Providers Care Pharmacy Laboratory Technician Name Role Phone Phong Stephens MD PCP Unavailable Robby Rajan APRN Unavailable Phong Stephens MD PCP Unavailable Carlos Middleton PCP Lorraine Hathaway MD PCP [facility], External Provider PCP Unavailable Encounter Details Care Team Description Date Type Department Depressive disorder NEC (Sissy shay Dx) 12/25/1996 Outpatient Historical Social History Date Tobacco Use [...]
--- OUTSIDE RECORDS SUMMARY | 2019-10-21 19:09 | XMS REPORT | Encounter Summary ---
Author Author [facility] Organization [facility] Address Unknown Phone Unavailable Care Team Providers Care Yarn Polishing Machine Operator Name Role Phone Phong Stephens MD PCP Unavailable Robby Rajan APRN Unavailable Pohng Stephens MD PCP Unavailable Carlos Middleton PCP Lorraine Hathaway MD PCP [facility], External Provider PCP Unavailable Encounter Details Care Team Description Date Type Department Abdominal pain, other specif ied site (Primary Dx) 12/20/1996 Outpatient Historical Social History Date Tobacco Use [...]
--- OUTSIDE RECORDS SUMMARY | 2019-10-21 19:09 | XMS REPORT | Encounter Summary ---
Author Author [facility] Organization [facility] Address Unknown Phone Unavailable Care Team Providers Care Grease Maker Name Role Phone Phong Stephens MD PCP Unavailable Robby Rajan APRN Unavailable Phong Stephens MD PCP Unavailable Carlos Middleton PCP Lorraine Hathaway MD PCP [facility], External Provider PCP Unavailable Encounter Details Care Team Description Date Type Department Ramy Nelson [phone] Pain in limb (Primary Dx) 05/25/1997 Outpatient Historical Social History Date Tobacco Use [...]
--- OUTSIDE RECORDS SUMMARY | 2019-10-21 19:09 | XMS REPORT | Encounter Summary ---
Author Author [facility] Organization [facility] Address Unknown Phone Unavailable Care Team Providers Care Atmospheric Technician Name Role Phone Phong Stephens MD PCP Unavailable Robby Rajan APRN Unavailable Phong Stephens MD PCP Unavailable Carlos Middleton PCP Lorraine Hathaawy MD PCP [facility], External Provider PCP Unavailable Encounter Details Care Team Description Date Type Department Jr Yemi Nunn, [address] [place] [phone] Nausea with vomiting (Primary Dx) 08/23/1997 Outpatient Historical Social History Date Tobacco Use [...]
--- OUTSIDE RECORDS SUMMARY | 2019-10-21 19:09 | XMS REPORT | Encounter Summary ---
Author Author [facility] Organization [facility] Address Unknown Phone Unavailable Care Team Providers Care Flexographic Printing Press Operator Name Role Phone Phong Stephens MD PCP Unavailable Robby Rajan APRN Unavailable Phong Stephens MD PCP Unavailable Carlos Middleton PCP Lorraine Hathaway MD PCP [facility], External Provider PCP Unavailable Encounter Details Care Team Description Date Type Department Reggie Ramirez MD NO ADDRESS ON FILE 06/17/1997 Outpatient Historical Social History Date Tobacco Use [...]
--- OUTSIDE RECORDS SUMMARY | 2019-10-21 19:09 | XMS REPORT | Encounter Summary ---
Author Author [facility] Organization [facility] Address Unknown Phone Unavailable Care Team Providers Care Home Health Speech Therapist Name Role Phone Phong Stephens MD PCP Unavailable Robby Rajan APRN Unavailable Phong Stephens MD PCP Unavailable Carlos Middleton PCP Lorraine Hathaway MD PCP [facility], External Provider PCP Unavailable Encounter Details Care Team Description Date Type Department Sukhi Grey [phone] Chest pain, unspecified (Primary Dx) 09/17/1996 Outpatient [...]
--- OUTSIDE RECORDS SUMMARY | 2019-10-21 19:09 | XMS REPORT | Encounter Summary ---
Author Author [facility] Organization [facility] Address Unknown Phone Unavailable Care Team Providers Care Judicial Law Clerk Name Role Phone Phong Stephens MD PCP Unavailable Robby Rajan APRN Unavailable Phong Stephens MD PCP Unavailable Carlos Middleton PCP Lorraine Hathaway MD PCP [facility], External Provider PCP Unavailable Encounter Details Care Team Description Date Type Department Reggie Ramirez MD NO ADDRESS ON FILE 04/07/1997 Outpatient Historical Social History Date Tobacco Use [...]
--- OUTSIDE RECORDS SUMMARY | 2019-10-21 19:09 | XMS REPORT | Encounter Summary ---
Author Author [facility] Organization [facility] Address Unknown Phone Unavailable Care Team Providers Care Nutritional Chemist Name Role Phone Phong Stephens MD PCP Unavailable Robby Rajan APRN Unavailable Phong Stephens MD PCP Unavailable Carlos Middleton PCP Lorraine Hathaway MD PCP [facility], External Provider PCP Unavailable Encounter Details Care Team Description Date Type Department Jr Yemi Nunn, DO [address] [place] [phone] Poisoning-antidepressant (Primary Dx) 12/28/1996 Outpatient Historical Social History Date Tobacco Use [...]
--- OUTSIDE RECORDS SUMMARY | 2019-10-21 19:09 | XMS REPORT | Encounter Summary ---
Author Author [facility] Organization [facility] Address Unknown Phone Unavailable Care Team Providers Care Employee Relation Manager Name Role Phone Phong Stephens MD PCP Unavailable Robby Rajan APRN Unavailable Phong Stephens MD PCP Unavailable Carlos Middleton PCP Lorraine Hathaway MD PCP [facility], External Provider PCP Unavailable Encounter Details Care Team Description Date [place] [address] [facility] [address] [place], [place] [address] Vomiting alone (Primary Dx) 12/13/1996 Outpatient Historical Social History Date Tobacco Use [...]
--- OUTSIDE RECORDS SUMMARY | 2019-10-21 19:09 | XMS REPORT | Encounter Summary ---
Author Author [facility] Organization [facility] Address Unknown Phone Unavailable Care Team Providers Care Attendant Sales Name Role Phone Phong Stephens MD PCP Unavailable Robby Rajan APRN Unavailable Phong Stephens MD PCP Unavailable Carlos Middleton PCP Lorraine Hathaway MD PCP [facility], External Provider PCP Unavailable Encounter Details Care Team Description Date Type Department Reggie Ramirez MD NO ADDRESS ON FILE Abdominal pain, right upper quadrant (Pr imary Dx) 07/24/1997 Outpatient Historical Social History Date Tobacco Use [...]
--- OUTSIDE RECORDS SUMMARY | 2019-10-21 19:09 | XMS REPORT | Encounter Summary ---
Author Author [facility] Organization [facility] Address Unknown Phone Unavailable Care Team Providers Care Cellular Equipment Repairer Name Role Phone Phong Stephens MD PCP Unavailable Robby Rajan APRN Unavailable Phong Stephens MD PCP Unavailable Carlos Middleton PCP Lorraine Hathaway MD PCP [facility], External Provider PCP Unavailable Encounter Details Care Team Description Date Type Department Respiratory abnorm NEC (Prim kierra Dx) 10/22/1996 Emergency [facility] Emergency Department [address] [phone] Social History Date Tobacco Use [...] as of this encounter Visit Diagnoses Diagnosis Respiratory abnorm NEC - Primary Other dyspnea and respiratory abnormali ty documented in this encounter
--- OUTSIDE RECORDS SUMMARY | 2019-10-21 19:09 | XMS REPORT | Encounter Summary ---
Author Author [facility] Organization [facility] Address Unknown Phone Unavailable Care Team Providers Care Flight Attendant Inflight Services Name Role Phone Phong Stephens MD PCP Unavailable Robby Rajan APRN Unavailable Phong Stephens MD PCP Unavailable Carlos Middleton PCP Lorraine Hathaway MD PCP [facility], External Provider PCP Unavailable Encounter Details Care Team Description Date Type Department Reggie Ramirez MD NO ADDRESS ON FILE Other pulmonary embolism and infarction (Primary Dx) 09/01/1997 Inpatient Historical Social History Date Tobacco Use [...]
--- OUTSIDE RECORDS SUMMARY | 2019-10-21 19:09 | XMS REPORT | Encounter Summary ---
Author Author [facility] Organization [facility] Address Unknown Phone Unavailable Care Team Providers Care Television Production Assistant Name Role Phone Phong Stephens MD PCP Unavailable Robby Rajan APRN Unavailable Phong Stephens MD PCP Unavailable Carlos Middleton PCP Lorraine Hathaway MD PCP [facility], External Provider PCP Unavailable Encounter Details Care Team Description Date Type Department Lee Wan, DO [address] [place] [address] Pain in or around eye (Primary Dx) 04/12/1997 Outpatient Historical Social History Date Tobacco Use [...] this encounter Visit Diagnoses Diagnosis Pain in or around eye - Primary documented in this encounter
--- OUTSIDE RECORDS SUMMARY | 2019-10-21 19:09 | XMS REPORT | Encounter Summary ---
Author Author [facility] Organization [facility] Address Unknown Phone Unavailable Care Team Providers Care Flush Tester Name Role Phone Phong Stephens MD PCP Unavailable Robby Rajan APRN Unavailable Phong Stephens MD PCP Unavailable Carlos Middleton PCP Lorraine Hathaway MD PCP [facility], External Provider PCP Unavailable Encounter Details Care Team Description Date Type Department Jr Yemi Nunn, [address] [place] [phone] Injury, other and unspecified, trunk (Pr imary Dx) 08/30/1997 Outpatient Historical Social History Date Tobacco Use [...]
--- OUTSIDE RECORDS SUMMARY | 2019-10-21 19:09 | XMS REPORT | Encounter Summary ---
Author Author [facility] Organization [facility] Address Unknown Phone Unavailable Care Team Providers Care Learning Operations Specialist Name Role Phone Phong Stephens MD PCP Unavailable Robby Rajan APRN Unavailable Phong Stephens MD PCP Unavailable Carlos Middleton PCP Lorraine Hathaway MD PCP [facility], External Provider PCP Unavailable Encounter Details Care Team Description Date Type Department Hallucinations (Primary Dx) 12/14/1996 Outpatient Historical Social History Date Tobacco Use [...] as of this encounter Visit Diagnoses Diagnosis Hallucinations - Primary documented in this encounter
--- OUTSIDE RECORDS SUMMARY | 2019-10-21 19:09 | XMS REPORT | Encounter Summary ---
Author Author [facility] Organization [facility] Address Unknown Phone Unavailable Care Team Providers Care Rug Dyer Helper Name Role Phone Phong Stephens MD PCP Unavailable Robby Rajan APRN Unavailable Phong Stephens MD PCP Unavailable Carlos Middleton PCP Lorraine Hathaway MD PCP [facility], External Provider PCP Unavailable Encounter Details Care Team Description Date Type Department Jr Yemi Nunn, [address] [phone] Pain in or around eye (Primary Dx) 04/13/1997 Outpatient Historical Social History Date Tobacco Use [...]
--- OUTSIDE RECORDS SUMMARY | 2019-10-21 19:09 | XMS REPORT | Encounter Summary ---
Author Author [facility] Organization [facility] Address Unknown Phone Unavailable Care Team Providers Care Keeper Head Name Role Phone Phong Stephens MD PCP Unavailable Robby Rajan APRN Unavailable Phong Stephens MD PCP Unavailable Carlos Middleton PCP Lorraine Hathaway MD PCP [facility], External Provider PCP Unavailable Encounter Details Care Team Description Date Type Department Reggie Ramirez MD NO ADDRESS ON FILE Lumbago (Primary Dx) 08/31/1997 Outpatient Historical Social History Date Tobacco Use [...]
--- OUTSIDE RECORDS SUMMARY | 2019-10-21 19:09 | XMS REPORT | Encounter Summary ---
Author Author [facility] Organization [facility] Address Unknown Phone Unavailable Care Team Providers Care Event Decorator Name Role Phone Phong Stephens MD PCP Unavailable Robby Rajan APRN Unavailable Phong Stephens MD PCP Unavailable Carlos Middleton PCP Lorraine Hathaway MD PCP [facility], External Provider PCP Unavailable Encounter Details Care Team Description Date Type Department Jr Yemi Nunn, [address] [place] [phone] Lumbago (Primary Dx) 11/09/1996 Outpatient Historical Social History Date Tobacco Use [...]
--- OUTSIDE RECORDS SUMMARY | 2019-10-21 19:09 | XMS REPORT | Encounter Summary ---
Author Author [facility] Organization [facility] Address Unknown Phone Unavailable Care Team Providers Care Slasher Tender Helper Name Role Phone Phong Stephens MD PCP Unavailable Robby Rajan APRN Unavailable Phong Stephens MD PCP Unavailable Carlos Middleton PCP Lorraine Hathaway MD PCP [facility], External Provider PCP Unavailable Encounter Details Care Team Description Date Type Department Jr Yemi Nunn, [address] [place] [phone] Abdominal pain, right lower quadrant (Pr imary Dx) 12/21/1996 Outpatient Historical Social History Date Tobacco Use [...] encounter Visit Diagnoses Diagnosis Abdominal pain, right lower quadrant - Primary documented in this encounter
--- OUTSIDE RECORDS SUMMARY | 2019-10-21 19:09 | XMS REPORT | Encounter Summary ---
Author Author [facility] Organization [facility] Address Unknown Phone Unavailable Care Team Providers Care Shampoo Assistant Name Role Phone Phong Stephens MD PCP Unavailable Robby Rajan APRN Unavailable Phong Stephens MD PCP Unavailable Carlos Middleton PCP Lorraine Hathaway MD PCP [facility], External Provider PCP Unavailable Encounter Details Care Team Description Date Type Department Reggie Ramirez MD NO ADDRESS ON FILE Bipolar disorder, unspecified (Primary D x) 06/06/1997 Outpatient Historical Social History Date Tobacco Use [...] Diagnoses Diagnosis Bipolar disorder, unspecified - Primary documented in this encounter
--- OUTSIDE RECORDS SUMMARY | 2019-10-21 19:09 | XMS REPORT | Encounter Summary ---
Author Author [facility] Organization [facility] Address Unknown Phone Unavailable Care Team Providers Care Equipment Scheduler Name Role Phone Phong Stephens MD PCP Unavailable Robby Rajan APRN Unavailable Phong Stephens MD PCP Unavailable Carlos Middleton PCP Lorraine Hathaway MD PCP [facility], External Provider PCP Unavailable Encounter Details Care Team Description Date Type Department Other alteration of consciou sness (Primary Dx) 05/30/1997 Outpatient Historical Social History Date Tobacco Use [...] of this encounter Visit Diagnoses Diagnosis Other alteration of consciousness - Sissy shay documented in this encounter
--- OUTSIDE RECORDS SUMMARY | 2019-10-21 19:09 | XMS REPORT | Encounter Summary ---
Author Author [facility] Organization [facility] Address Unknown Phone Unavailable Care Team Providers Care Felt Hat Steamer Name Role Phone Phong Stephens MD PCP Unavailable Robby Rajan APRN Unavailable Phong Stephens MD PCP Unavailable Carlos Middleton PCP Lorraine Hathaway MD PCP [facility], External Provider PCP Unavailable Encounter Details Care Team Description Date Type Department Headache(784.0) (Primary Dx) 12/10/1996 Outpatient Historical Social History Date Tobacco Use [...]
--- OUTSIDE RECORDS SUMMARY | 2019-10-21 19:10 | XMS REPORT | Encounter Summary ---
Author Author [facility] Organization [facility] Address Unknown Phone Unavailable Care Team Providers Care Lithopone Charger Name Role Phone Phong Stephens MD PCP Unavailable Robby Rajan APRN Unavailable Phong Stephens MD PCP Unavailable Carlos Middleton PCP Lorraine Hathaway MD PCP [facility], External Provider PCP Unavailable Encounter Details Care Team Description Date Type Department Jaron Adams MD [address] [place] [address] Abdominal pain, generalized (Primary Dx) 03/08/1996 Outpatient Historical Social History Date Tobacco Use [...]
--- OUTSIDE RECORDS SUMMARY | 2019-10-21 19:10 | XMS REPORT | Encounter Summary ---
Author Author [facility] Organization [facility] Address Unknown Phone Unavailable Care Team Providers Care Hotel Operations Manager Name Role Phone Phong Stephens MD PCP Unavailable Robby Rajan APRN Unavailable Phong Stephens MD PCP Unavailable Carlos Middleton PCP Lorraine Hathaway MD PCP [facility], External Provider PCP Unavailable Encounter Details Care Team Description Date Type Department Lee Wan, DO [address] [place] [address] Contusion of knee (Primary Dx) 06/20/1995 Outpatient Historical Social History Date Tobacco Use [...]
--- OUTSIDE RECORDS SUMMARY | 2019-10-21 19:10 | XMS REPORT | Encounter Summary ---
Author Author [facility] Organization [facility] Address Unknown Phone Unavailable Care Team Providers Care Military Analyst Name Role Phone Phong Stephens MD PCP Unavailable Robby Rajan APRN Unavailable Phong Stephens MD PCP Unavailable Carlos Middleton PCP Lorraine Hathaway MD PCP [facility], External Provider PCP Unavailable Encounter Details Care Team Description Date Type Department Headache(784.0) (Primary Dx) 04/09/1995 Outpatient Historical Social History Date Tobacco Use [...]
--- OUTSIDE RECORDS SUMMARY | 2019-10-21 19:10 | XMS REPORT | Encounter Summary ---
Author Author [facility] Organization [facility] Address Unknown Phone Unavailable Care Team Providers Care Controls Project Engineer Name Role Phone Phong Stephens MD PCP Unavailable Robby Rajan APRN Unavailable Phong Stephens MD PCP Unavailable Carlos Middleton PCP Lorraine Hathaway MD PCP [facility], External Provider PCP Unavailable Encounter Details Care Team Description Date Type Department Threat labor NEC-antepar (Pr imary Dx) 11/22/1994 Outpatient Historical Social History Date Tobacco Use [...] as of this encounter Visit Diagnoses Diagnosis Threat labor NEC-antepar - Primary Other threatened labor, antepartum documented in this encounter
--- OUTSIDE RECORDS SUMMARY | 2019-10-21 19:10 | XMS REPORT | Encounter Summary ---
Author Author [facility] Organization [facility] Address Unknown Phone Unavailable Care Team Providers Care Monitoring Coordinator Name Role Phone Phong Stephens MD PCP Unavailable Robby Rajan APRN Unavailable Phong Stephens MD PCP Unavailable Carlos Middleton PCP Lorraine Hathaway MD PCP [facility], External Provider PCP Unavailable Encounter Details Care Team Description Date Type Department Reggie Ramirez MD NO ADDRESS ON FILE Contusion of unspecified part of lower l imb (Primary Dx) 07/02/1994 Outpatient Historical Social History Date Tobacco Use [...] this encounter Visit Diagnoses Diagnosis Contusion of unspecified part of lower limb - Primary documented in this encounter
--- OUTSIDE RECORDS SUMMARY | 2019-10-21 19:10 | XMS REPORT | Encounter Summary ---
Author Author [facility] Organization [facility] Address Unknown Phone Unavailable Care Team Providers Care Scrap Hooker Name Role Phone Phong Stephens MD PCP Unavailable Robby Rajan APRN Unavailable Phong Stephens MD PCP Unavailable Carlos Middleton PCP Lorraine Hathaway MD PCP [facility], External Provider PCP Unavailable Encounter Details Care Team Description Date Type Department Reggie Ramirez MD NO ADDRESS ON FILE Physical therapy NEC (Primary Dx) 02/09/1995 Outpatient Historical Social History Date Tobacco Use [...] as of this encounter Visit Diagnoses Diagnosis Physical therapy NEC - Primary Other physical therapy documented in this encounter
--- OUTSIDE RECORDS SUMMARY | 2019-10-21 19:10 | XMS REPORT | Encounter Summary ---
Author Author [facility] Organization [facility] Address Unknown Phone Unavailable Care Team Providers Care Vacation Guide Name Role Phone Phong Stephens MD PCP Unavailable Robby Rajan APRN Unavailable Phong Stephens MD PCP Unavailable Carlos Middleton PCP Lorraine Hathaway MD PCP [facility], External Provider PCP Unavailable Encounter Details Care Team Description Date Type Department Lee Wan, DO [address] [place] [address] Toxic effect of unspecified gas, fume, o r vapor(987.9) (Primary Dx) 01/19/1996 Outpatient Historical Social History Date Tobacco Use [...] this encounter Visit Diagnoses Diagnosis Toxic effect of unspecified gas, fume, or vapor(987.9) - Primary Toxic effect of unspecified gas, fume, or vapor documented in this encounter
--- OUTSIDE RECORDS SUMMARY | 2019-10-21 19:10 | XMS REPORT | Encounter Summary ---
Author Author [facility] Organization [facility] Address Unknown Phone Unavailable Care Team Providers Care Service Or Work Dispatcher Name Role Phone Phong Stephens MD PCP Unavailable Robby Rajan APRN Unavailable Phong Stephens MD PCP Unavailable Carlos Middleton PCP Lorraine Hathaway MD PCP [facility], External Provider PCP Unavailable Encounter Details Care Team Description Date Type Department Other specified complication , antepartum(646.83) (Primary Dx) 11/18/1994 Outpatient Historical Social History Date Tobacco Use [...] of this encounter Visit Diagnoses Diagnosis Other specified complication, antepartu m(646.83) - Primary Other specified complication, antepartu m documented in this encounter
--- OUTSIDE RECORDS SUMMARY | 2019-10-21 19:10 | XMS REPORT | Encounter Summary ---
Author Author [facility] Organization [facility] Address Unknown Phone Unavailable Care Team Providers Care Supervisor [employer] Name Role Phone Phong Stephens MD PCP Unavailable Robby Rajan APRN Unavailable Phong Stephens MD PCP Unavailable Carlos Middleton PCP Lorraine Hathaway MD PCP [facility], External Provider PCP Unavailable Encounter Details Care Team Description Date Type Department Ramy Nelson [phone] Pain in limb (Primary Dx) 02/12/1996 Outpatient Historical Social History Date Tobacco Use [...]
--- OUTSIDE RECORDS SUMMARY | 2019-10-21 19:10 | XMS REPORT | Encounter Summary ---
Author Author [facility] Organization [facility] Address Unknown Phone Unavailable Care Team Providers Care Weight Reducing Technician Name Role Phone Phong Stephens MD PCP Unavailable Robby Rajan APRN Unavailable Phong Stephens MD PCP Unavailable Carlos Middleton PCP Lorraine Hathaway MD PCP [facility], External Provider PCP Unavailable Encounter Details Care Team Description Date Type Department Lee Wan, DO [address] [place] [address] Toxic effect of unspecified gas, [...]
--- OUTSIDE RECORDS SUMMARY | 2019-10-21 19:10 | XMS REPORT | Encounter Summary ---
Author Author [facility] Organization [facility] Address Unknown Phone Unavailable Care Team Providers Care Manager Body Name Role Phone Phong Stephens MD PCP Unavailable Robby Rajan APRN Unavailable Phong Stephens MD PCP Unavailable Carlos Middleton PCP Lorraine Hathaway MD PCP [facility], External Provider PCP Unavailable Encounter Details Care Team Description Date Type Department Lavell Lance MD 08/25/1996 Outpatient Historical Social History Date Tobacco Use [...]
--- OUTSIDE RECORDS SUMMARY | 2019-10-21 19:10 | XMS REPORT | Encounter Summary ---
Author Author [facility] Organization [facility] Address Unknown Phone Unavailable Care Team Providers Care Jockey Room Custodian Name Role Phone Phong Stephens MD PCP Unavailable Robby Rajan APRN Unavailable Phong Stephens MD PCP Unavailable Carlos Middleton PCP Lorraine Hathaway MD PCP [facility], External Provider PCP Unavailable Encounter Details Care Team Description Date Type Department Lee Wan, DO [address] [place] [address] Sprain lumbosacral (Primary Dx) 06/16/1996 Outpatient Historical Social History Date Tobacco Use [...] of this encounter Visit Diagnoses Diagnosis Sprain lumbosacral - Primary Sprain of lumbosacral (joint) (ligament ) documented in this encounter
--- OUTSIDE RECORDS SUMMARY | 2019-10-21 19:10 | XMS REPORT | Encounter Summary ---
Author Author [facility] Organization [facility] Address Unknown Phone Unavailable Care Team Providers Care Building Insulation Installer Name Role Phone Phong Stephens MD PCP Unavailable Robby Rajan APRN Unavailable Phong Stephens MD PCP Unavailable Carlos Middleton PCP Lorraine Hathaway MD PCP [facility], External Provider PCP Unavailable Encounter Details Care Team Description Date Type Department Malik Patterson Rolly rupt membran-deliv (Primary Dx) 12/02/1994 Inpatient Historical Social History Date Tobacco Use [...] as of this encounter Visit Diagnoses Diagnosis Rolly rupt membran-deliv - Primary Premature rupture of membranes in pregn mart, delivered documented in this encounter
--- OUTSIDE RECORDS SUMMARY | 2019-10-21 19:10 | XMS REPORT | Encounter Summary ---
Author Author [facility] Organization [facility] Address Unknown Phone Unavailable Care Team Providers Care Manager Laboratory Name Role Phone Phong Stephens MD PCP Unavailable Robby Rajan APRN Unavailable Phong Stephens MD PCP Unavailable Carlos Middleton PCP Lorraine Hathaway MD PCP [facility], External Provider PCP Unavailable Encounter Details Care Team Description Date Type Department Lee Wan, DO [address] [place] [address] Abdominal pain, other specified site (Pr imary Dx) 03/10/1996 Outpatient Historical Social History Date Tobacco Use [...]
--- OUTSIDE RECORDS SUMMARY | 2019-10-21 19:10 | XMS REPORT | Encounter Summary ---
Author Author [facility] Organization [facility] Address Unknown Phone Unavailable Care Team Providers Care Take Away Attendant Name Role Phone Phong Stephens MD PCP Unavailable Robby Rajan APRN Unavailable Phong Stephens MD PCP Unavailable Carlos Middleton PCP Lorraine Hathaway MD PCP [facility], External Provider PCP Unavailable Encounter Details Care Team Description Date Type Department Reggie Ramirez MD NO ADDRESS ON FILE Physical therapy NEC (Primary Dx) 07/30/1995 Outpatient Historical Social History Date Tobacco Use [...]
--- OUTSIDE RECORDS SUMMARY | 2019-10-21 19:10 | XMS REPORT | Encounter Summary ---
Author Author [facility] Organization [facility] Address Unknown Phone Unavailable Care Team Providers Care Press Set Up Person Name Role Phone Phong Stephens MD PCP Unavailable Robby Rajan APRN Unavailable Phong Stephens MD PCP Unavailable Carlos Middleton PCP Lorraine Hathaway MD PCP [facility], External Provider PCP Unavailable Encounter Details Care Team Description Date Type Department Jr Yemi Nunn, [address] [place] [phone] Sprain lumbosacral (Primary Dx) 01/18/1995 Outpatient Historical Social History Date Tobacco Use [...]
--- OUTSIDE RECORDS SUMMARY | 2019-10-21 19:10 | XMS REPORT | Encounter Summary ---
Author Author [facility] Organization [facility] Address Unknown Phone Unavailable Care Team Providers Care Assistant Professor Of Sociology Name Role Phone Phong Stephens MD PCP Unavailable Robby Rajan APRN Unavailable Phong Stephens MD PCP Unavailable Cralos Middleton PCP Lorraine Hathaway MD PCP [facility], External Provider PCP Unavailable Encounter Details Care Team Description Date Type Department Jose Prince Altamirano [phone] Dysmenorrhea (Primary Dx) 03/31/1996 Inpatient Historical Social History Date Tobacco Use [...] as of this encounter Visit Diagnoses Diagnosis Dysmenorrhea - Primary documented in this encounter
--- OUTSIDE RECORDS SUMMARY | 2019-10-21 19:10 | XMS REPORT | Encounter Summary ---
Author Author [facility] Organization [facility] Address Unknown Phone Unavailable Care Team Providers Care Dredge Lever Operator Name Role Phone Phong Stephens MD PCP Unavailable Robby Rajan APRN Unavailable Phong Stephens MD PCP Unavailable Carlos Middleton PCP Lorraine Hathaway MD PCP [facility], External Provider PCP Unavailable Encounter Details Care Team Description Date Type Department Urinary tract infection, sit e not specified (Primary Dx) 10/19/1995 Outpatient Historical Social History Date Tobacco Use [...]
--- OUTSIDE RECORDS SUMMARY | 2019-10-21 19:10 | XMS REPORT | Encounter Summary ---
Author Author [facility] Organization [facility] Address Unknown Phone Unavailable Care Team Providers Care Rehabilitation Consultant Name Role Phone Phong Stephens MD PCP Unavailable Robby Rajan APRN Unavailable Phong Stephens MD PCP Unavailable Carlos Middleton PCP Lorraine Hathaway MD PCP [facility], External Provider PCP Unavailable Encounter Details Care Team Description Date Type Department Lumbago (Primary Dx) 03/17/1995 Outpatient Historical Social History Date Tobacco Use [...]
--- OUTSIDE RECORDS SUMMARY | 2019-10-21 19:10 | XMS REPORT | Encounter Summary ---
Author Author [facility] Organization [facility] Address Unknown Phone Unavailable Care Team Providers Care Slot Machine Department Floorperson Name Role Phone Phong Stephens MD PCP Unavailable Robby Rajan APRN Unavailable Phong Stephens MD PCP Unavailable Carlos Middleton PCP Lorraine Hathaway MD PCP [facility], External Provider PCP Unavailable Encounter Details Care Team Description Date Type Department infection-antepartum (Sissy shay Dx) 09/04/1994 Outpatient Historical Social History Date Tobacco Use [...] as of this encounter Visit Diagnoses Diagnosis infection-antepartum - Primary Infections of genitourinary tract antep artum documented in this encounter
--- OUTSIDE RECORDS SUMMARY | 2019-10-21 19:10 | XMS REPORT | Encounter Summary ---
Author Author [facility] Organization [facility] Address Unknown Phone Unavailable Care Team Providers Care Manager Oracle Database Name Role Phone Phong Stephens MD PCP Unavailable Robby Rajan APRN Unavailable Phong Stephens MD PCP Unavailable Carlos Middleton PCP Lorraine Hathaway MD PCP [facility], External Provider PCP Unavailable Encounter Details Care Team Description Date Type Department Jr Yemi Nunn, [address] [place] [phone] Lumbago (Primary Dx) 07/29/1995 Outpatient Historical Social History Date Tobacco Use [...]
--- OUTSIDE RECORDS SUMMARY | 2019-10-21 19:10 | XMS REPORT | Encounter Summary ---
Author Author [facility] Organization [facility] Address Unknown Phone Unavailable Care Team Providers Care Supervisor Motor Vehicle Assembly Name Role Phone Phong Stephens MD PCP Unavailable Robby Rajan APRN Unavailable Phong Stephens MD PCP Unavailable Carlos Middleton PCP Lorraine Hathaway MD PCP [facility] External Provider PCP Unavailable Encounter Details Care Team Description Date Type Department Sukhi Grey [phone] Sprain of wrist, unspecified site (Prima ry Dx) 02/25/1995 Outpatient Historical Social History Date Tobacco Use [...]
--- OUTSIDE RECORDS SUMMARY | 2019-10-21 19:10 | XMS REPORT | Encounter Summary ---
Author Author [facility] Organization [facility] Address Unknown Phone Unavailable Care Team Providers Care Airframe Technician Name Role Phone Phong Stephens MD PCP Unavailable Robby Rajan APRN Unavailable Phong Stephens MD PCP Unavailable Carlos Middleton PCP Lorraine Hathaway MD PCP [facility], External Provider PCP Unavailable Encounter Details Care Team Description Date Type Department Lumbago (Primary Dx) 01/31/1995 Outpatient Historical Social History Date Tobacco Use [...]
--- OUTSIDE RECORDS SUMMARY | 2019-10-21 19:10 | XMS REPORT | Encounter Summary ---
Author Author [facility] Organization [facility] Address Unknown Phone Unavailable Care Team Providers Care Compounder Helper Name Role Phone Phong Stephens MD PCP Unavailable Robby Rajan APRN Unavailable Phong Stephens MD PCP Unavailable Carlos Middleton PCP Lorraine Hathaway MD PCP [facility], External Provider PCP Unavailable Encounter Details Care Team Description Date Type Department Reggie Ramirez MD NO ADDRESS ON FILE Backache, unspecified (Primary Dx) 09/04/1994 Outpatient Historical Social History Date [...]
--- OUTSIDE RECORDS SUMMARY | 2019-10-21 19:10 | XMS REPORT | Encounter Summary ---
Author Author [facility] Organization [facility] Address Unknown Phone Unavailable Care Team Providers Care Senior Technical Editor Name Role Phone Phong Stephens MD PCP Unavailable Robby Rajan APRN Unavailable Phong Stephens MD PCP Unavailable Carlos Middleton PCP Lorraine Hathaway MD PCP [facility], External Provider PCP Unavailable Encounter Details Care Team Description Date Type Department Lavell Lance MD 08/22/1996 Outpatient Historical Social History Date Tobacco Use [...]
--- OUTSIDE RECORDS SUMMARY | 2019-10-21 19:10 | XMS REPORT | Encounter Summary ---
Author Author [facility] Organization [facility] Address Unknown Phone Unavailable Care Team Providers Care Projector Booth Operator Name Role Phone Phong Stephens MD PCP Unavailable Robby Rajan APRN Unavailable Phong Stephens MD PCP Unavailable Carlos Middleton PCP Lorraine Hathaway MD PCP [facility], External Provider PCP Unavailable Encounter Details Care Team Description Date Type Department Nausea with vomiting (Primar y Dx) 09/20/1994 Outpatient Historical Social History Date Tobacco Use [...]
--- OUTSIDE RECORDS SUMMARY | 2019-10-21 19:10 | XMS REPORT | Encounter Summary ---
Author Author [facility] Organization [facility] Address Unknown Phone Unavailable Care Team Providers Care Relocation Manager Name Role Phone Phong Stephens MD PCP Unavailable Robby Rajan APRN Unavailable Phong Stephens MD PCP Unavailable Carlos Middleton PCP Lorraine Hathaway MD PCP [facility], External Provider PCP Unavailable Encounter Details Care Team Description Date Type Department Lee Wan, DO [address] [place] [address] Contusion of forearm (Primary Dx) 06/28/1995 Outpatient Historical Social History Date Tobacco Use [...] this encounter Visit Diagnoses Diagnosis Contusion of forearm - Primary documented in this encounter
--- OUTSIDE RECORDS SUMMARY | 2019-10-21 19:11 | XMS REPORT | Encounter Summary ---
Author Author [facility] Organization [facility] Address Unknown Phone Unavailable Care Team Providers Care Paper Conservator Name Role Phone Phong Stephens MD PCP Unavailable Robby Rajan APRN Unavailable Phong Stephens MD PCP Unavailable Carlos Middleton PCP Lorraine Hathaway MD PCP [facility], External Provider PCP Unavailable Encounter Details Care Team Description Date Type Department Thrt nanci labor-antepart (Pr imary Dx) 09/03/1992 Outpatient Historical Social History Date Tobacco Use [...] as of this encounter Visit Diagnoses Diagnosis Thrt nanci labor-antepart - Primary Threatened premature labor, antepartum documented in this encounter
--- OUTSIDE RECORDS SUMMARY | 2019-10-21 19:11 | XMS REPORT | Encounter Summary ---
Author Author [facility] Organization [facility] Address Unknown Phone Unavailable Care Team Providers Care Hand Sewer Name Role Phone Phong Stephens MD PCP Unavailable Robby Rajan APRN Unavailable Phong Stephens MD PCP Unavailable Carlos Middleton PCP Lorraine Hathaway MD PCP [facility], External Provider PCP Unavailable Encounter Details Care Team Description Date Type Department Reggie Ramirez MD NO ADDRESS ON FILE Lumbago (Primary Dx) 06/09/1993 Outpatient Historical Social History Date Tobacco Use [...]
--- OUTSIDE RECORDS SUMMARY | 2019-10-21 19:11 | XMS REPORT | Encounter Summary ---
Author Author [facility] Organization [facility] Address Unknown Phone Unavailable Care Team Providers Care Psychopaedic Nurse Name Role Phone Phong Stephens MD PCP Unavailable Robby Rajan APRN Unavailable Phong Stephens MD PCP Unavailable Carlos Middleton PCP Lorraine Hathaway MD PCP [facility], External Provider PCP Unavailable Encounter Details Care Team Description Date Type Department Macho Chamberlain DO Nausea and vomiting (Primary Dx) 02/13/1994 Outpatient Historical Social History Date Tobacco Use [...] of this encounter Visit Diagnoses Diagnosis Nausea and vomiting - Primary documented in this encounter
--- OUTSIDE RECORDS SUMMARY | 2019-10-21 19:11 | XMS REPORT | Encounter Summary ---
Author Author [facility] Organization [facility] Address Unknown Phone Unavailable Care Team Providers Care Clutch Rebuilder Name Role Phone Phong Stephens MD PCP Unavailable Robby Rajan APRN Unavailable Phong Stephens MD PCP Unavailable Carlos Middleton PCP Lorraine Hathaway MD PCP [facility], External Provider PCP Unavailable Encounter Details Care Team Description Date Type Department Injury, other and unspecifie d, trunk (Primary Dx) 06/27/1994 Outpatient Historical Social History Date Tobacco Use [...]
--- OUTSIDE RECORDS SUMMARY | 2019-10-21 19:11 | XMS REPORT | Encounter Summary ---
Author Author [facility] Organization [facility] Address Unknown Phone Unavailable Care Team Providers Care Cluster Bore Operator Name Role Phone Phong Stephens MD PCP Unavailable Robby Rajan APRN Unavailable Phong Stephens MD PCP Unavailable Carlos Middleton PCP Lorraine Hathaawy MD PCP [facility], External Provider PCP Unavailable Encounter Details Care Team Description Date Type Department Lee Wan, DO [address] [place] [address] Fever and other physiologic disturbances of temperature regulation (Primary Dx) 12/04/1993 Outpatient Historical Social History Date Tobacco Use [...] as of this encounter Visit Diagnoses Diagnosis Fever and other physiologic disturbance s of temperature regulation - Primary documented in this encounter
--- OUTSIDE RECORDS SUMMARY | 2019-10-21 19:11 | XMS REPORT | Encounter Summary ---
Author Author [facility] Organization [facility] Address Unknown Phone Unavailable Care Team Providers Care Main Line Station Engineer Name Role Phone Phong Stephens MD PCP Unavailable Robby Rajan APRN Unavailable Phong Stephens MD PCP Unavailable Carlos Middleton PCP Lorraine Hathaway MD PCP [facility], External Provider PCP Unavailable Encounter Details Care Team Description Date Type Department Lee Wan, DO [address] [place] [address] Open wound of knee, leg (except thigh), and ankle, without mention of complication (Primary Dx) 10/22/1993 Outpatient Historical Social History Date Tobacco Use [...] encounter Visit Diagnoses Diagnosis Open wound of knee, leg (except thigh), and ankle, without mention of complication - Primary documented in this encounter
--- OUTSIDE RECORDS SUMMARY | 2019-10-21 19:11 | XMS REPORT | Encounter Summary ---
Author Author [facility] Organization [facility] Address Unknown Phone Unavailable Care Team Providers Care Repairer Maintenance Building Name Role Phone Phong Stephens MD PCP Unavailable Robby Rajan APRN Unavailable Phong Stephens MD PCP Unavailable Carlos Middleton PCP Lorraine Hathaway MD PCP [facility], External Provider PCP Unavailable Encounter Details Care Team Description Date Type Department Thrt nanci labor-antepart (Pr imary Dx) 08/06/1992 Outpatient Historical Social History Date Tobacco Use [...]
--- OUTSIDE RECORDS SUMMARY | 2019-10-21 19:11 | XMS REPORT | Encounter Summary ---
Author Author [facility] Organization [facility] Address Unknown Phone Unavailable Care Team Providers Care Cloak Room Attendant Name Role Phone Phong Stephens MD PCP Unavailable Robby Rajan APRN Unavailable Phong Stephens MD PCP Unavailable Carlos Middleton PCP Lorraine Hathaway MD PCP [facility], External Provider PCP Unavailable Encounter Details Care Team Description Date Type Department Threat labor NEC-antepar (Pr imary Dx) 10/24/1992 Outpatient Historical Social History Date Tobacco Use [...]
--- OUTSIDE RECORDS SUMMARY | 2019-10-21 19:11 | XMS REPORT | Encounter Summary ---
Author Author [facility] Organization [facility] Address Unknown Phone Unavailable Care Team Providers Care Real Estate Investor Name Role Phone Phong Stephens MD PCP Unavailable Robby Rajan APRN Unavailable Phong Stephens MD PCP Unavailable Carlos Middleton PCP Lorraine Hathaway MD PCP [facility], External Provider PCP Unavailable Encounter Details Care Team Description Date Type Department Hypoglycemia, unspecified (P rimary Dx) 09/20/1992 Outpatient Historical Social History Date Tobacco Use [...] as of this encounter Visit Diagnoses Diagnosis Hypoglycemia, unspecified - Primary documented in this encounter
--- OUTSIDE RECORDS SUMMARY | 2019-10-21 19:11 | XMS REPORT | Encounter Summary ---
Author Author [facility] Organization [facility] Address Unknown Phone Unavailable Care Team Providers Care Dust Box Tender Name Role Phone Phong Stephens MD PCP Unavailable Robby Rajan APRN Unavailable Phong Stephens MD PCP Unavailable Carlos Middleton PCP Lorriane Hathaway MD PCP [facility], External Provider PCP Unavailable Encounter Details Care Team Description Date Type Department Reggie Ramirez MD NO ADDRESS ON FILE Unspecified hemorrhage in early pregnanc y, antepartum (Primary Dx) 04/17/1994 Outpatient Historical Social History Date Tobacco Use [...] of this encounter Visit Diagnoses Diagnosis Unspecified hemorrhage in early pregnan cy, antepartum - Primary documented in this encounter
--- OUTSIDE RECORDS SUMMARY | 2019-10-21 19:11 | XMS REPORT | Encounter Summary ---
Author Author [facility] Organization [facility] Address Unknown Phone Unavailable Care Team Providers Care Theatrical Trouper Name Role Phone Phong Stephens MD PCP Unavailable Robby Rajan APRN Unavailable Phong Stephens MD PCP Unavailable Carlos Middleton PCP Lorraine Hathaway MD PCP [facility], External Provider PCP Unavailable Encounter Details Care Team Description Date Type Department Previous delivery, delivered, with or without mention of antepartum condition (Primary Dx) 10/25/1992 Inpatient Historical Social History Date Tobacco Use [...] as of this encounter Visit Diagnoses Diagnosis Previous delivery, delivered, with or without mention of antepartum condition - Primary documented in this encounter
--- OUTSIDE RECORDS SUMMARY | 2019-10-21 19:11 | XMS REPORT | Encounter Summary ---
Author Author [facility] Organization [facility] Address Unknown Phone Unavailable Care Team Providers Care Quality Control Coordinator Name Role Phone Phong Stephens MD PCP Unavailable Robby Rajan APRN Unavailable Phong Stephens MD PCP Unavailable Carlos Middleton PCP Lorraine Hathaway MD PCP [facility], External Provider PCP Unavailable Encounter Details Care Team Description Date Type Department Reggie Ramirez MD NO ADDRESS ON FILE infection-antepartum (Primary Dx) 04/29/1994 Inpatient Historical Social History Date Tobacco Use [...]
--- OUTSIDE RECORDS SUMMARY | 2019-10-21 19:11 | XMS REPORT | Encounter Summary ---
Author Author [facility] Organization [facility] Address Unknown Phone Unavailable Care Team Providers Care Ticket Attendant Name Role Phone Phong Stephens MD PCP Unavailable Robby Rajan APRN Unavailable Phong Stephens MD PCP Unavailable Carlos Middleton PCP Lorraine Hathaway MD PCP [facility], External Provider PCP Unavailable Encounter Details Care Team Description Date Type Department Thrt nanci labor-antepart (Pr imary Dx) 07/05/1992 Outpatient Historical Social History Date Tobacco Use [...]
--- OUTSIDE RECORDS SUMMARY | 2019-10-21 19:11 | XMS REPORT | Encounter Summary ---
Author Author [facility] Organization [facility] Address Unknown Phone Unavailable Care Team Providers Care Tile Burner Name Role Phone Phong Stephens MD PCP Unavailable Robby Rajan APRN Unavailable Phong Stephens MD PCP Unavailable Carlos Middleton PCP Lorraine Hathaway MD PCP [facility], External Provider PCP Unavailable Encounter Details Care Team Description Date Type Department Poor growth, affecting management of mother, antepartum condition or complication (Primary Dx) 04/14/1992 Outpatient Historical Social History Date Tobacco Use [...] of this encounter Visit Diagnoses Diagnosis Poor growth, affecting management of mother, antepartum condition or complication - Primary documented in this encounter
--- OUTSIDE RECORDS SUMMARY | 2019-10-21 19:11 | XMS REPORT | Encounter Summary ---
Author Author [facility] Organization [facility] Address Unknown Phone Unavailable Care Team Providers Care Curb Attendant Name Role Phone Phong Stephens MD PCP Unavailable Robby Rajan APRN Unavailable Pohng Stephens MD PCP Unavailable Carlos Middleton PCP Lorraine Hathaway MD PCP [facility], External Provider PCP Unavailable Encounter Details Care Team Description Date Type Department Injury, other and unspecifie d, knee, leg, ankle, and foot (Primary Dx) 10/09/1992 Outpatient Historical Social History Date Tobacco Use [...]
--- OUTSIDE RECORDS SUMMARY | 2019-10-21 19:11 | XMS REPORT | Encounter Summary ---
Author Author [facility] Organization [facility] Address Unknown Phone Unavailable Care Team Providers Care Wool Batting Worker Name Role Phone Phong Stephens MD PCP Unavailable Robby Rajan APRN Unavailable Phong Stephens MD PCP Unavailable Carlos Middleton PCP Lorraine Hathaway MD PCP [facility], External Provider PCP Unavailable Encounter Details Care Team Description Date Type Department Threat labor NEC-antepar (Pr imary Dx) 09/07/1992 Outpatient Historical Social History Date Tobacco Use [...]
--- OUTSIDE RECORDS SUMMARY | 2019-10-21 19:11 | XMS REPORT | Encounter Summary ---
Author Author [facility] Organization [facility] Address Unknown Phone Unavailable Care Team Providers Care Strategic Marketing Manager Name Role Phone Phong Stephens MD PCP Unavailable Robby Rajan APRN Unavailable Phong Stephens MD PCP Unavailable Carlos Middleton PCP Lorraine Hathaway MD PCP [facility], External Provider PCP Unavailable Encounter Details Care Team Description Date Type Department infection-antepartum (Sissy jaspal Dx) 05/03/1994 Outpatient Historical Social History Date Tobacco Use [...]
--- OUTSIDE RECORDS SUMMARY | 2019-10-21 19:11 | XMS REPORT | Encounter Summary ---
Author Author [facility] Organization [facility] Address Unknown Phone Unavailable Care Team Providers Care Sr Vice President Name Role Phone Phong Stephens MD PCP Unavailable Robby Rajan APRN Unavailable Phong Stephens MD PCP Unavailable Carlos Middleton PCP Lorraine Hathaway MD PCP [facility], External Provider PCP Unavailable Encounter Details Care Team Description Date Type Department UNKNOWN Convulsions (Primary Dx) 09/20/1992 Outpatient Historical Social History Date [...] as of this encounter Visit Diagnoses Diagnosis Convulsions - Primary documented in this encounter
--- OUTSIDE RECORDS SUMMARY | 2019-10-21 19:11 | XMS REPORT | Encounter Summary ---
Author Author [facility] Organization [facility] Address Unknown Phone Unavailable Care Team Providers Care Complex Director Name Role Phone Phong Stephens MD PCP Unavailable Robby Rajan APRN Unavailable Phong Stephens MD PCP Unavailable Carlos Middleton PCP Lorraine Hathaway MD PCP [facility], External Provider PCP Unavailable Encounter Details Care Team Description Date Type Department Reggie Ramirez MD NO ADDRESS ON FILE Anxiety state, unspecified (Primary Dx) 06/14/1992 Outpatient Historical Social History Date Tobacco Use [...] as of this encounter Visit Diagnoses Diagnosis Anxiety state, unspecified - Primary documented in this encounter
--- OUTSIDE RECORDS SUMMARY | 2019-10-21 19:11 | XMS REPORT | Encounter Summary ---
Author Author [facility] Organization [facility] Address Unknown Phone Unavailable Care Team Providers Care Bundle Shaker Name Role Phone Phong Stephens MD PCP Unavailable Robby Rajan APRN Unavailable Phong Stephens MD PCP Unavailable Carlos Middleton PCP Lorraine Hathaway MD PCP [facility], External Provider PCP Unavailable Encounter Details Care Team Description Date Type Department Prince GarciaJose Carlos [phone] Injury, other and unspecified, hip and t high (Primary Dx) 06/27/1994 Outpatient Historical Social History [...] Visit Diagnoses Diagnosis Injury, other and unspecified, hip and thigh - Primary documented in this encounter
--- OUTSIDE RECORDS SUMMARY | 2019-10-21 19:11 | XMS REPORT | Encounter Summary ---
Author Author [facility] Organization [facility] Address Unknown Phone Unavailable Care Team Providers Care Waiver Analyst Name Role Phone Phong Stephens MD PCP Unavailable Robby Rajan APRN Unavailable Phong Stephens MD PCP Unavailable Carlos Middleton PCP Lorraine Hathaway MD PCP [facility], External Provider PCP Unavailable Encounter Details Care Team Description Date Type Department Macho Chamberlain DO Nausea and vomiting (Primary Dx) 01/01/1994 Outpatient Historical Social History Date Tobacco Use [...]
--- OUTSIDE RECORDS SUMMARY | 2019-10-21 19:11 | XMS REPORT | Encounter Summary ---
Author Author [facility] Organization [facility] Address Unknown Phone Unavailable Care Team Providers Care Lock Setter Name Role Phone Phong Stephens MD PCP Unavailable Robby Rajan APRN Unavailable Phong Stephens MD PCP Unavailable Carlos Middleton PCP Lorraine Hathaway MD PCP [facility], External Provider PCP Unavailable Encounter Details Care Team Description Date Type Department Delayed delivery after spont aneous or unspecified rupture of membranes, antepartum (Primary Dx) 06/26/1992 Outpatient Historical Social History Date Tobacco Use [...] as of this encounter Visit Diagnoses Diagnosis Delayed delivery after spontaneous or u nspecified rupture of membranes, antepartum - Primary documented in this encounter
--- OUTSIDE RECORDS SUMMARY | 2019-10-21 19:11 | XMS REPORT | Encounter Summary ---
Author Author [facility] Organization [facility] Address Unknown Phone Unavailable Care Team Providers Care Model Engine Mechanic Name Role Phone Phong Stephens MD PCP Unavailable Robby Rajan APRN Unavailable Phong Stephens MD PCP Unavailable Carlos Middleton PCP Lorraine Hathaway MD PCP [facility], External Provider PCP Unavailable Encounter Details Care Team Description Date Type Department Reggie Ramirez MD NO ADDRESS ON FILE Nausea and vomiting (Primary Dx) 03/18/1993 Outpatient Historical Social History Date Tobacco Use [...]
--- OUTSIDE RECORDS SUMMARY | 2019-10-21 19:11 | XMS REPORT | Encounter Summary ---
Author Author [facility] Organization [facility] Address Unknown Phone Unavailable Care Team Providers Care Lay Out Machine Operator Name Role Phone Phong Stephens MD PCP Unavailable Robby Rajan APRN Unavailable Phong Stephens MD PCP Unavailable Carlos Middleton PCP Lorraine Hathaway MD PCP [facility], External Provider PCP Unavailable Encounter Details Care Team Description Date Type Department Marty Kiser [phone] Lumbago (Primary Dx) 05/02/1992 Outpatient Historical Social History Date Tobacco Use [...]
--- OUTSIDE RECORDS SUMMARY | 2019-10-21 19:11 | XMS REPORT | Encounter Summary ---
Author Author [facility] Organization [facility] Address Unknown Phone Unavailable Care Team Providers Care Interlocking Installer Name Role Phone Phong Stephens MD PCP Unavailable Robby Rajan APRN Unavailable Phong Stephens MD PCP Unavailable Carlos Middleton PCP Lorraine Hathaway MD PCP [facility], External Provider PCP Unavailable Encounter Details Care Team Description Date Type Department Nausea and vomiting (Primary Dx) 08/30/1992 Outpatient Historical Social History Date Tobacco Use [...]
--- OUTSIDE RECORDS SUMMARY | 2019-10-21 19:11 | XMS REPORT | Encounter Summary ---
Author Author [facility] Organization [facility] Address Unknown Phone Unavailable Care Team Providers Care Ent Physician Name Role Phone Phong Stephens MD PCP Unavailable Robby Rajan APRN Unavailable Phong Stephens MD PCP Unavailable Carlos Middleton PCP Lorraine Hathaway MD PCP [facility], External Provider PCP Unavailable Encounter Details Care Team Description Date Type Department Urinary tract infection, sit e not specified (Primary Dx) 05/15/1992 Outpatient Historical Social History Date Tobacco Use [...]
--- OUTSIDE RECORDS SUMMARY | 2019-10-21 19:11 | XMS REPORT | Encounter Summary ---
Author Author [facility] Organization [facility] Address Unknown Phone Unavailable Care Team Providers Care Driller Machine Name Role Phone Phong Stephens MD PCP Unavailable Robby Rajan APRN Unavailable Phong Stephens MD PCP Unavailable Carlos Middleton PCP Lorraine Hathaway MD PCP [facility], External Provider PCP Unavailable Encounter Details Care Team Description Date Type Department Gertrudis Hermosillo MD NO ADDRESS ON FILE Sprain of ankle, unspecified site (Prima ry Dx) 10/20/1992 Outpatient Historical Social History Date Tobacco Use [...]
--- OUTSIDE RECORDS SUMMARY | 2019-10-21 19:12 | XMS REPORT ---
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 Active Problem Suicide and self-inflicted p oisoning by unspecified drug or medicinal substance E950.5 Active Problem Other dyspnea and respiratory abnormalities 786.09 Active 531279161 Problem Dysuria 788.1 Active 01913368 Problem Congestive heart failure, unspecified 428.0 Active 31126318 Problem Other screening breast examination V76.19 Active 97414054 Problem Unspecified hypotension 458.9 Active 31421790 Problem Other specified disorders of bladder 596.89 Active 79868084 Problem Encounter for long-term (current) use of other medications V58.69 Active 957586529 Problem Counseling on substance use and abuse V65.42 Active 177535947 Problem Unspecified myalgia and myositis 729.1 Active 911185336 Problem Pain in soft tissues of limb 729.5 A ctive 56201163 Problem Urinary tract infection, site not specified 599.0 Active 35811057 Problem Pain in joint, lower leg 719.46 Activ e 886624748 Problem Chronic airway obstruction, not elsewhere classified 496 Active 73422923 Problem Neurogenic bladder, NOS 596.54 Active 377362916 Problem Acute sinusitis, unspecified 461.9 A ctive 71762713 Problem Personal history of pulmonary embolism V12.55 Active 153076825 Problem Acute bronchitis 466.0 Active 105 50134 Problem Unspecified hearing loss 389.9 Activ e 01690497 Problem Unspecified otalgia 388.70 Active 16498755 Problem Unspecified hereditary and idiopathic peripheral neuropath y 356.9 Active 648633382 Problem Other and unspecified hyperlipidemia 272.4 Active 68106821 Problem Altered mental status 780.97 Active 653153205 Problem Diabetes mellitus without me ntion of complication, type II or unspecified type, not stated as uncontrolled 250.00 Active 033689109 Problem Shortness of breath 786.05 Active 980968650 Problem Other malaise and fatigue 780.79 Acti ve 454136195 Problem Other chronic pain 338.29 Active 8 8416438 Problem Nondependent tobacco use disorder 305.1 Active 716988204 Problem Amphetamine and other psychostimulant de pendence, 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 [address] [id number] [address] Aug, Cough R05 ; Sore throat J02. 9 and Shortness of breath R06.[address] [id number], [place] [address] Aug, [facility] [address] [facility] [id number] [address] [place] [address] Sep, [facility] [address] [facility] [id number] [address] [place] [address] Sep, [facility] [address] [facility] [id number] [address] [place] [address] Aug, [facility] [address] [facility] [id number] [address] [place] [address] Aug, [facility] [address] [facility] [id number] [address] [place] [address] Aug, [facility] [address] [facility] [id number] [address] [place] [address] Aug, [facility] [address] [facility] [id number] [address] [place] [phone] Aug, [facility] [address] [facility] [id number] [address] [place] [address] Aug, [facility] [address] [id number] [address] [place] [address], [place] [address] Jul, [facility] [address] [id number] [address] [place] [address], [place] [address] Jul, [facility] [address] [id number] [address] [place] [address], [place] [address] Jul, [facility] [address] [id number] [address] [place] [address], [place] [address] Jul, [facility] [address] [id number] [address] [place] [address], [place] [address] Jul, [facility] [address] [id number] [address] [place] [address], [place] [address] Jul, [facility] [address] [id number] [address] [place] [address], [place] [address] Jul, [facility] [address] [id number] [address] [place] [address], [place] [address] Jul, [facility] [address] [id number] [address] [place] [address], [place] [address] Jul, [facility] [address] [id number] [address] [place] [address], [place] [address] Jun, [facility] [address] [id number] [address] [place] [address], [place] [address] Jun, [facility] [address] [id number] [address] [place] [address], [place] [address] Jun, [facility] [address] [id number] [address] [place] [address], [place] [address] Jun, [facility] [address] [id number] [address] [place] [address], [place] [address] Jun, [facility] [address] [id number] [address] [place] [address], [place] [address] Jun, [facility] [address] [id number] [address] [place] [address], [place] [address] Jun, [facility] [address] [id number] [address] [place] [address], [place] [address] Jun, [facility] [address] [id number] [address] [place] [address], [place] [address] Jun, [facility] [address] [id number] [address] [place] [address], [place] [address] Jun, [facility] [address] [id number] [address] [place] [address], [place] [address] May, [facility] [address] [id number] [address] [place] [address], [place] [address] May, [facility] [address] [id number] [address] [place] [address], [place] [address] May, [facility] [address] [id number] [address] [place] [address], [place] [address] May, [facility] [address] [id number] [address] [place] [address], [place] [address] 29 May, 2014 [facility] [address] [id number] [address] [place] [address], [place] [address] May, [facility] [address] [id number] [address] [place] [address], [place] [address] May, [facility] [address] [id number] [address] [place] [address], [place] [address] 18 May, 2014 [facility] [address] [id number] [address] [place] [address], [place] [address] 18 May, 2014 [facility] [address] [id number] [address] [place] [address], [place] [address] 15 May, 2014 [facility] [address] [id number] [address] [place] [address], [place] [address] 15 May, 2014 [facility] [address] [id number] [address] [place] [address], [place] [address] Apr, [facility] [address] [id number] [address] [place] [address], [place] [address] Apr, [facility] [address] [id number] [address] [place] [address], [place] [address] Apr, [facility] [address] [id number] [address] [place] [address], [place] [address] Apr, [facility] [address] [id number] [address] [place] [address], [place] [address] Mar, [facility] [address] [id number] [address] [place] [address], [place] [address] Mar, [facility] [address] [id number] [address] [place] [address], [place] [address] Mar, [facility] [address] [id number] [address] [place] [address], [place] [address] Mar, [facility] [address] [id number] [address] [place] [address], [place] [address] Feb, [facility] [address] [id number] [address] [place] [address], [place] [address] 23 Feb, 2014 [facility] [address] [id number] [address] [place] [address], [place] [address] 22 Feb, 2014 [facility] [address] [id number] [address] [place] [address], [place] [address] 22 Feb, 2014 [facility] [address] [id number] [address] [place] [address], [place] [address] 16 Feb, 2014 [facility] [address] [id number] [address] [place] [address], [place] [address] 16 Feb, 2014 [facility] [address] [id number] [address] [place] [address], [place] [address] Jan, [facility] [address] [id number] [address] [place] [address], [place] [address] Jan, [facility] [address] [id number] [address] [place] [address], [place] [address] Jan, [facility] [address] [id number] [address] [place] [address], [place] [address] Jan, [facility] [address] [id number] [address] [place] [address], [place] [address] Jan, [facility] [address] [id number] [address] [place] [address], [place] [address] Jan, [facility] [address] [id number] [address] [place] [address], [place] [address] Dec, [facility] [address] [id number] [address] [place] [address], [place] [address] Dec, [facility] [address] [id number] [address] [place] [address], [place] [address] Nov, [facility] [address] [id number] [address] [place] [address], [place] [address] Nov, [facility] [address] [id number] [address] [place] [address], [place] [address] Nov, [facility] [address] [id number] [address] [place] [address], [place] [address] Nov, [facility] [address] [id number] [address] [place] [address], [place] [address] Nov, [facility] [address] [id number] [address] [place] [address], [place] [address] Nov, [facility] [address] [id number] [address] [place] [address], [place] [address] Nov, [facility] [address] [id number] [address] [place] [address], [place] [address] October, [facility] [address] [id number] [address] [place] [address], [place] [address] October, [facility] [address] [id number] [address] [place] [address], [place] [address] Sep, [facility] [address] [id number] [facility] [address] Sep, [facility] [address] [id number] [facility] [address] Sep, [facility] [address] [id number] [facility] [address] Sep, [facility] [address] [id number] [address] [place] [address], [place] [address] 17 Sep, 2013 [facility] [address] [id number] [address] [place] [address], [place] [address] 16 Sep, 2013 [facility] [address] [id number] [address] [place] [address], [place] [address] Sep, [facility] [address] [id number] [address] [place] [address], [place] [address] Sep, [facility] [address] [id number] [address] [place] [address], [place] [address] Sep, [facility] [address] [id number] [address] [place] [address], [place] [address] Sep, [facility] [address] [id number] [address] [place] [address], [place] [address] Sep, [facility] [address] [id number] [address] [place] [address], [place] [address] Sep, [facility] [address] [id number] [address] [place] [address], [place] [address] Sep, [facility] [address] [id number] [address] [place] [address], [place] [address] Sep, [facility] [address] [id number] [address] [place] [address], [place] [address] 08 Sep, 2013 [facility] [address] [id number] [address] [place] [address], [place] [address] 24 Aug, 2013 [facility] [address] [id number] [address] [place] [address], [place] [address] Aug, [facility] [address] [id number] [facility] [address] Aug, [facility] [address] [id number] [address] [place] [address], [place] [address] Aug, [facility] [address] [id number] [facility] [address] Aug, [facility] [address] [id number] [address] [place] [address], [place] [address] Aug, [facility] [address] [id number] [address] [place] [address], [place] [address] Aug, [facility] [address] [id number] [address] [place] [address], [place] [address] Aug, [facility] [address] [id number] [address] [place] [address], [place] [address] Aug, [facility] [address] [id number] [address] [place] [address], [place] [address] Aug, [facility] [address] [id number] [address] [place] [address], [place] [address] Jun, [facility] [address] [id number] [address] [place] [address], [place] [address] Jun, [facility] [address] [id number] [address] [place] [address], [place] [address] Jun, [facility] [address] [id number] [address] [place] [address], [place] [address] Jun, [facility] [address] [id number] [address] [place] [address], [place] [address] Jun, [facility] [address] [id number] [address] [place] [address], [place] [address] Jun, [facility] [address] [id number] [address] [place] [address], [place] [address] Jun, [facility] [address] [id number] [address] [place] [address], [place] [address] Jun, [facility] [address] [id number] [address] [place] [address], [place] [address] Jun, [facility] [address] [id number] [address] [place] [address], [place] [address] Jun, [facility] [address] [id number] [address] [place] [address], [place] [address] Jun, [facility] [address] [id number] [address] [place] [address], [place] [address] Jun, [facility] [address] [id number] [address] [place] [address], [place] [address] Apr, [facility] [address] [id number] [address] [place] [address], [place] [address] Apr, [facility] [address] [id number] [address] [place] [address], [place] [address] Jan, [facility] [address] [id number] [address] [place] [address], [place] [address] Jan, [facility] [address] [id number] [address] [place] [address], [place] [address] Jan, [facility] [address] [id number] [address] [place] [address], [place] [address] Jan, [facility] [address] [id number] [address] [place] [address], [place] [address] Jan, [facility] [address] [id number] [address] [place] [address], [place] [address] Jan, [facility] [address] [id number] [address] [place] [address], [place] [address] Jan, [facility] [address] [place] [id number] Jan, [facility] [address] [id number] [address] [place] [address], [place] [address] Dec, [facility] [address] [id number] [address] [place] [address] Dec, [facility] [address] [id number] [address] [place] [address] Dec, [facility] [address] [id number] [address] [place] [address] Dec, [facility] [address] [id number] [address] [place] [address] Dec, [facility] [address] [id number] [address] [place] [address] Dec, [facility] [address] [id number] [address] [place] [address] Dec, [facility] [address] [id number] [address] [place] [address] Nov, [facility] [address] [id number] [address] [place] [address] Nov, IMMUNIZATIONS No Known Immunizations SOCIAL HISTORY Never Assessed REASON FOR VISIT PLAN OF CARE VITAL SIGNS MEDICATIONS No Known Medications RESULTS No Results PROCEDURES No Known procedures INSTRUCTIONS MEDICATIONS ADMINISTERED No Known Medications
--- OUTSIDE RECORDS SUMMARY | 2019-10-21 19:12 | XMS REPORT ---
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 Active Problem Suicide and self-inflicted p oisoning by unspecified drug or medicinal substance E950.5 Active Problem Other dyspnea and respiratory abnormalities 786.09 Active 614250553 Problem Dysuria 788.1 Active 19093550 Problem Congestive heart failure, unspecified 428.0 Active 68501752 Problem Other screening breast examination V76.19 Active 71902169 Problem Unspecified hypotension 458.9 Active 70821652 Problem Other specified disorders of bladder 596.89 Active 54656178 Problem Encounter for long-term (current) use of other medications V58.69 Active 065225288 Problem Counseling on substance use and abuse V65.42 Active 433956436 Problem Unspecified myalgia and myositis 729.1 Active 778946507 Problem Pain in soft tissues of limb 729.5 A ctive 06642467 Problem Urinary tract infection, site not specified 599.0 Active 65780499 Problem Pain in joint, lower leg 719.46 Activ e 699160470 Problem Chronic airway obstruction, not elsewhere classified 496 Active 15312150 Problem Neurogenic bladder, NOS 596.54 Active 929139981 Problem Acute sinusitis, unspecified 461.9 A ctive 65405503 Problem Personal history of pulmonary embolism V12.55 Active 337829014 Problem Acute bronchitis 466.0 Active 105 55483 Problem Unspecified hearing loss 389.9 Activ e 84703099 Problem Unspecified otalgia 388.70 Active 09152446 Problem Unspecified hereditary and idiopathic peripheral neuropath y 356.9 Active 154867468 Problem Other and unspecified hyperlipidemia 272.4 Active 77261832 Problem Altered mental status 780.97 Active 937687213 Problem Diabetes mellitus without me ntion of complication, type II or unspecified type, not stated as uncontrolled 250.00 Active 032527805 Problem Shortness of breath 786.05 Active 853128071 Problem Other malaise and fatigue 780.79 Acti ve 811388512 Problem Other chronic pain 338.29 Active 8 7674219 Problem Nondependent tobacco use disorder 305.1 Active 363076258 Problem Amphetamine and other psychostimulant de pendence, 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 9 and Shortness of breath R06.[address] [id number] [address] Aug, [facility] [address] [facility] [id number] [address] [place] [address] Sep, [facility] [address] [facility] [id number] [address] [place] [address] Sep, [facility] [address] [facility] [id number] [address] [place] [address] Aug, [facility] [address] [facility] [id number] [address] [place] [address] Aug, [facility] [address] [facility] [id number] [address] [place] [address] Aug, [facility] [address] [facility] [id number] [address] [place] [address] Aug, [facility] [address] [id number] [address] [place] [address] [place] [address] Aug, [facility] [address] [id number] [address] [place] [address], [place] [id number] Aug, [facility] [address] [id number] [address] [place] [address], [place] [address] Jul, 2014 [facility] [address] [id number] [address] [place] [address], [place] [address] Jul, 2014 [facility] [address] [id number] [address] [place] [address], [place] [address] Jul, 2014 [facility] [address] [id number] [address] [place] [address], [place] [address] Jul, 2014 [facility] [address] [id number] [address] [place] [address], [place] [id number] Jul, 2014 [facility] [address] [id number] [address] [place] [address], [place] [id number] Jul, 2014 [facility] [address] [id number] [address] [place] [address], [place] [id number] 16 Jul, 2014 [facility] [address] [id number] [address] [place] [address], [place] [address] Jul, [facility] [address] [id number] [address] [place] [address], [place] [address] Jul, [facility] [address] [id number] [address] [place] [address], [place] [address] Jun, [facility] [address] [id number] [address] [place] [address], [place] [address] Jun, [facility] [address] [id number] [address] [place] [address], [place] [address] Jun, [facility] [address] [id number] [address] [place] [address], [place] [address] Jun, [facility] [address] [id number] [address] [place] [address], [place] [address] Jun, [facility] [address] [id number] [address] [place] [address], [place] [address] Jun, [facility] [address] [id number] [address] [place] [address], [place] [address] Jun, [facility] [address] [id number] [address] [place] [address], [place] [id number] Jun, [facility] [address] [id number] [address] [place] [address], [place] [address] Jun, [facility] [address] [id number] [address] [place] [address], [place] [address] Jun, [facility] [address] [id number] [address] [place] [address], [place] [address] May, [facility] [address] [id number] [address] [place] [address], [place] [address] May, [facility] [address] [id number] [address] [place] [address], [place] [id number] 29 May, 2014 [facility] [address] [id number] [address] [place] [address], [place] [address] 29 May, 2014 [facility] [address] [id number] [address] [place] [address], [place] [id number] 29 May, 2014 [facility] [address] [id number] [address] [place] [address], [place] [id number] May, [facility] [address] [id number] [address] [place] [address], [place] [id number] 19 May, 2014 [facility] [address] [id number] [address] [place] [address], [place] [id number] 18 May, 2014 [facility] [address] [id number] [address] [place] [address], [place] [address] 18 May, 2014 [facility] [address] [id number] [address] [place] [address], [place] [id number] 15 May, 2014 [facility] [address] [id number] [address] [place] [address], [place] [id number] 15 May, 2014 [facility] [address] [id number] [address] [place] [address], [place] [address] Apr, [facility] [address] [id number] [address] [place] [address], [place] [id number] Apr, [facility] [address] [id number] [address] [place] [address], [place] [address] Apr, [facility] [address] [id number] [address] [place] [address], [place] [id number] Apr, [facility] [address] [id number] [address] [place] [address], [place] [id number] Mar, [facility] [address] [id number] [address] [place] [address], [place] [id number] Mar, [facility] [address] [id number] [address] [place] [address], [place] [address] Mar, [facility] [address] [id number] [address] [place] [address], [place] [id number] Mar, [facility] [address] [id number] [address] [place] [address], [place] [id number] 23 Feb, 2014 [facility] [address] [id number] [address] [place] [address], [place] [id number] 23 Feb, 2014 [facility] [address] [id number] [address] [place] [address], [place] [id number] 22 Feb, 2014 [facility] [address] [id number] [address] [place] [address], [place] [id number] 22 Feb, 2013 [facility] [address] [id number] [address] [place] [address], [place] [id number] 16 Feb, 2014 [facility] [address] [id number] [address] [place] [address], [place] [id number] 16 Feb, 2014 [facility] [address] [id number] [address] [place] [address], [place] [address] Jan, [facility] [address] [id number] [facility] [address] Jan, [facility] [address] [id number] [facility] [address] Jan, [facility] [address] [id number] [address] [place] [address], [place] [id number] Jan, [facility] [address] [id number] [address] [place] [address], [place] [id number] Jan, [facility] [address] [id number] [address] [place] [address], [place] [id number] Jan, [facility] [address] [id number] [address] [place] [address], [place] [id number] Dec, [facility] [address] [id number] [address] [place] [address], [place] [id number] Dec, [facility] [address] [id number] [address] [place] [address], [place] [id number] Nov, [facility] [address] [id number] [address] [place] [address], [place] [address] Nov, [facility] [address] [id number] [address] [place] [address], [place] [address] Nov, [facility] [address] [id number] [address] [place] [address], [place] [address] Nov, [facility] [address] [id number] [address] [place] [address], [place] [address] Nov, [facility] [address] [id number] [address] [place] [address], [place] [address] Nov, [facility] [address] [id number] [address] [place] [address], [place] [address] Nov, [facility] [address] [id number] [address] [place] [address], [place] [address] October, [facility] [address] [id number] [address] [place] [address], [place] [id number] October, [facility] [address] [id number] [facility] [address] Sep, [facility] [address] [id number] [address] [place] [address], [place] [id number] Sep, [facility] [address] [id number] [address] [place] [address], [place] [address] Sep, [facility] [address] [id number] [address] [place] [address], [place] [id number] Sep, [facility] [address] [id number] [address] [place] [address], [place] [address] Sep, [facility] [address] [id number] [address] [place] [address], [place] [id number] Sep, [facility] [address] [id number] [address] [place] [address], [place] [id number] Sep, [facility] [address] [id number] [address] [place] [address], [place] [id number] Sep, [facility] [address] [id number] [address] [place] [address], [place] [address] Sep, [facility] [address] [id number] [address] [place] [address], [place] [id number] Sep, [facility] [address] [id number] [address] [place] [address], [place] [address] Sep, [facility] [address] [id number] [address] [place] [address], [place] [address] Sep, [facility] [address] [id number] [address] [place] [address], [place] [id number] Sep, [facility] [address] [id number] [address] [place] [address], [place] [address] Sep, [facility] [address] [id number] [address] [place] [address], [place] [id number] Sep, [facility] [address] [id number] [facility] [address] 24 Aug, 2013 [facility] [address] [id number] [facility] [address] Aug, [facility] [address] [id number] [facility] [address] Aug, [facility] [address] [id number] [address] [place] [address], [place] [address] Aug, [facility] [address] [id number] [address] [place] [address], [place] [address] Aug, [facility] [address] [id number] [address] [place] [address], [place] [address] Aug, [facility] [address] [id number] [address] [place] [address], [place] [address] Aug, [facility] [address] [id number] [address] [place] [address], [place] [address] Aug, [facility] [address] [id number] [address] [place] [address], [place] [address] Aug, [facility] [address] [id number] [address] [place] [address], [place] [address] Aug, [facility] [address] [id number] [address] [place] [address], [place] [address] Jun, [facility] [address] [id number] [address] [place] [address], [place] [address] Jun, [facility] [address] [id number] [address] [place] [address], [place] [address] Jun, [facility] [address] [id number] [address] [place] [address], [place] [address] Jun, [facility] [address] [id number] [address] [place] [address], [place] [address] Jun, [facility] [address] [id number] [address] [place] [address], [place] [address] Jun, [facility] [address] [id number] [address] [place] [address], [place] [address] Jun, [facility] [address] [id number] [address] [place] [address], [place] [address] Jun, [facility] [address] [id number] [address] [place] [address], [place] [id number] Jun, [facility] [address] [id number] [address] [place] [address], [place] [id number] Jun, [facility] [address] [id number] [address] [place] [address], [place] [address] Jun, [facility] [address] [id number] [address] [place] [address], [place] [address] Jun, [facility] [address] [id number] [address] [place] [address], [place] [address] Apr, [facility] [address] [id number] [address] [place] [address], [place] [address] Apr, [facility] [address] [id number] [address] [place] [address], [place] [address] Jan, [facility] [address] [id number] [address] [place] [address], [place] [address] Jan, [facility] [address] [id number] [address] [place] [address], [place] [address] Jan, [facility] [address] [id number] [address] [place] [address], [place] [address] Jan, [facility] [address] [id number] [address] [place] [address], [place] [id number] Jan, [facility] [address] [id number] [address] [place] [address], [place] [address] Jan, [facility] [address] [id number] [address] [place] [address], [place] [id number] Jan, [facility] [address] [place] [id number] Jan, [facility] [address] [id number] [address] [place] [id number] Dec, [facility] [address] [id number] [address] [place] [id number] Dec, [facility] [address] [id number] [address] [place] [id number] Dec, [facility] [address] [id number] [address] [place] [id number] Dec, [facility] [address] [id number] [address] [place] [id number] Dec, [facility] [address] [id number] [address] [place] [id number] Dec, [facility] [address] [id number] [address] [place] [id number] Dec, [facility] [address] [id number] [address] [place] [id number] Nov, [facility] [address] [id number] [address] [place] [id number] Nov, IMMUNIZATIONS No Known Immunizations SOCIAL HISTORY Never Assessed REASON FOR VISIT PLAN OF CARE VITAL SIGNS MEDICATIONS Unknown Medications RESULTS No Results PROCEDURES No Known procedures INSTRUCTIONS MEDICATIONS ADMINISTERED No Known Medications
--- OUTSIDE RECORDS SUMMARY | 2019-10-21 19:12 | XMS REPORT ---
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 Active Problem Suicide and self-inflicted p oisoning by unspecified drug or medicinal substance E950.5 Active Problem Other dyspnea and respiratory abnormalities 786.09 Active 117246887 Problem Dysuria 788.1 Active 38379411 Problem Congestive heart failure, unspecified 428.0 Active 37450423 Problem Other screening breast examination V76.19 Active 00467571 Problem Unspecified hypotension 458.9 Active 67473141 Problem Other specified disorders of bladder 596.89 Active 86784563 Problem Encounter for long-term (current) use of other medications V58.69 Active 953871085 Problem Counseling on substance use and abuse V65.42 Active 545992593 Problem Unspecified myalgia and myositis 729.1 Active 526359650 Problem Pain in soft tissues of limb 729.5 A ctive 40016564 Problem Urinary tract infection, site not specified 599.0 Active 75752347 Problem Pain in joint, lower leg 719.46 Activ e 625340257 Problem Chronic airway obstruction, not elsewhere classified 496 Active 69064534 Problem Neurogenic bladder, NOS 596.54 Active 430199555 Problem Acute sinusitis, unspecified 461.9 A ctive 15505503 Problem Personal history of pulmonary embolism V12.55 Active 056811662 Problem Acute bronchitis 466.0 Active 105 30210 Problem Unspecified hearing loss 389.9 Activ e 13433231 Problem Unspecified otalgia 388.70 Active 21168671 Problem Unspecified hereditary and idiopathic peripheral neuropath y 356.9 Active 714350290 Problem Other and unspecified hyperlipidemia 272.4 Active 78048780 Problem Altered mental status 780.97 Active 987902864 Problem Diabetes mellitus without me ntion of complication, type II or unspecified type, not stated as uncontrolled 250.00 Active 565401957 Problem Shortness of breath 786.05 Active 560199890 Problem Other malaise and fatigue 780.79 Acti ve 342896291 Problem Other chronic pain 338.29 Active 8 1962095 Problem Nondependent tobacco use disorder 305.1 Active 880451703 Problem Amphetamine and other psychostimulant de pendence, 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 9 and Shortness of breath R06.[address] [id number], [place] [address] Aug, [facility] [address] [facility] [id number] [address] [place] [address] Sep, [facility] [address] [facility] [id number] [address] [place] [address] Sep, [facility] [address] [facility] [id number] [address] [place] [address] Aug, [facility] [address] [facility] [id number] [address] [place] [address] Aug, [facility] [address] [facility] [id number] [address] [place] [address] Aug, [facility] [address] [facility] [id number] [address] [place] [address] Aug, [facility] [address] [facility] [id number] [address] [place] [address] Aug, [facility] [address] [facility] [id number] [address] [place] [address] Aug, [facility] [address] [id number] [address] [place] [address], [place] [address] Jul, [facility] [address] [id number] [address] [place] [address], [place] [address] Jul, [facility] [address] [id number] [address] [place] [address], [place] [address] Jul, [facility] [address] [id number] [address] [place] [address], [place] [address] Jul, [facility] [address] [id number] [address] [place] [address], [place] [address] Jul, [facility] [address] [id number] [address] [place] [address], [place] [address] Jul, [facility] [address] [id number] [address] [place] [address], [place] [address] Jul, [facility] [address] [id number] [address] [place] [address], [place] [address] Jul, [facility] [address] [id number] [address] [place] [address], [place] [address] Jul, [facility] [address] [id number] [address] [place] [address], [place] [address] Jun, [facility] [address] [id number] [address] [place] [address], [place] [address] Jun, [facility] [address] [id number] [address] [place] [address], [place] [address] Jun, [facility] [address] [id number] [address] [place] [address], [place] [address] Jun, [facility] [address] [id number] [address] [place] [address], [place] [address] Jun, [facility] [address] [id number] [address] [place] [address], [place] [address] Jun, [facility] [address] [id number] [address] [place] [address], [place] [address] Jun, [facility] [address] [id number] [address] [place] [address], [place] [address] Jun, [facility] [address] [id number] [address] [place] [address], [place] [address] Jun, [facility] [address] [id number] [address] [place] [address], [place] [address] Jun, [facility] [address] [id number] [address] [place] [address], [place] [address] May, [facility] [address] [id number] [address] [place] [address], [place] [address] May, [facility] [address] [id number] [address] [place] [address], [place] [address] May, [facility] [address] [id number] [address] [place] [address], [place] [address] May, [facility] [address] [id number] [address] [place] [address], [place] [address] 29 May, 2014 [facility] [address] [id number] [address] [place] [address], [place] [address] May, [facility] [address] [id number] [address] [place] [address], [place] [address] May, [facility] [address] [id number] [address] [place] [address], [place] [address] 18 May, 2014 [facility] [address] [id number] [address] [place] [address], [place] [address] 18 May, 2014 [facility] [address] [id number] [address] [place] [address], [place] [address] 15 May, 2014 [facility] [address] [id number] [address] [place] [address], [place] [address] 15 May, 2014 [facility] [address] [id number] [address] [place] [address], [place] [address] Apr, [facility] [address] [id number] [address] [place] [address], [place] [address] Apr, [facility] [address] [id number] [address] [place] [address], [place] [address] Apr, [facility] [address] [id number] [address] [place] [address], [place] [address] Apr, [facility] [address] [id number] [address] [place] [address], [place] [address] Mar, [facility] [address] [id number] [address] [place] [address], [place] [address] Mar, [facility] [address] [id number] [address] [place] [address], [place] [address] Mar, [facility] [address] [id number] [address] [place] [address], [place] [address] Mar, [facility] [address] [id number] [address] [place] [address], [place] [address] Feb, [facility] [address] [id number] [address] [place] [address], [place] [address] 23 Feb, 2014 [facility] [address] [id number] [address] [place] [address], [place] [address] 22 Feb, 2014 [facility] [address] [id number] [address] [place] [address], [place] [address] 22 Feb, 2014 [facility] [address] [id number] [address] [place] [address], [place] [address] 16 Feb, 2014 [facility] [address] [id number] [address] [place] [address], [place] [address] 16 Feb, 2014 [facility] [address] [id number] [address] [place] [address], [place] [address] Jan, [facility] [address] [id number] [address] [place] [address], [place] [address] Jan, [facility] [address] [id number] [address] [place] [address], [place] [address] Jan, [facility] [address] [id number] [address] [place] [address], [place] [address] Jan, [facility] [address] [id number] [address] [place] [address], [place] [address] Jan, [facility] [address] [id number] [address] [place] [address], [place] [address] Jan, [facility] [address] [id number] [address] [place] [address], [place] [address] Dec, [facility] [address] [id number] [address] [place] [address], [place] [address] Dec, [facility] [address] [id number] [address] [place] [address], [place] [address] Nov, [facility] [address] [id number] [address] [place] [address], [place] [address] Nov, [facility] [address] [id number] [address] [place] [address], [place] [address] Nov, [facility] [address] [id number] [address] [place] [address], [place] [address] Nov, [facility] [address] [id number] [address] [place] [address], [place] [address] Nov, [facility] [address] [id number] [address] [place] [address], [place] [address] Nov, [facility] [address] [id number] [address] [place] [address], [place] [address] Nov, [facility] [address] [id number] [address] [place] [address], [place] [address] October, [facility] [address] [id number] [address] [place] [address], [place] [address] October, [facility] [address] [id number] [address] [place] [address], [place] [address] Sep, [facility] [address] [id number] [facility] [place] [address] Sep, [facility] [address] [id number] [facility] [place] [address] Sep, [facility] [address] [id number] [facility] [place] [address] Sep, [facility] [address] [id number] [address] [place] [address], [place] [address] 17 Sep, 2013 [facility] [address] [id number] [address] [place] [address], [place] [address] 16 Sep, 2013 [facility] [address] [id number] [address] [place] [address], [place] [address] Sep, [facility] [address] [id number] [address] [place] [address], [place] [address] Sep, [facility] [address] [id number] [address] [place] [address], [place] [address] Sep, [facility] [address] [id number] [address] [place] [address], [place] [address] Sep, [facility] [address] [id number] [address] [place] [address], [place] [address] Sep, [facility] [address] [id number] [address] [place] [address], [place] [address] Sep, [facility] [address] [id number] [address] [place] [address], [place] [address] Sep, [facility] [address] [id number] [address] [place] [address], [place] [address] Sep, [facility] [address] [id number] [address] [place] [address], [place] [address] 08 Sep, 2013 [facility] [address] [id number] [address] [place] [address], [place] [address] 24 Aug, 2013 [facility] [address] [id number] [address] [place] [address], [place] [address] Aug, [facility] [address] [id number] [facility] [place] [address] Aug, [facility] [address] [id number] [address] [place] [address], [place] [address] Aug, [facility] [address] [id number] [facility] [place] [address] Aug, [facility] [address] [id number] [address] [place] [address], [place] [address] Aug, [facility] [address] [id number] [address] [place] [address], [place] [address] Aug, [facility] [address] [id number] [address] [place] [address], [place] [address] Aug, [facility] [address] [id number] [address] [place] [address], [place] [address] Aug, [facility] [address] [id number] [address] [place] [address], [place] [address] Aug, [facility] [address] [id number] [address] [place] [address], [place] [address] Jun, [facility] [address] [id number] [address] [place] [address], [place] [address] Jun, [facility] [address] [id number] [address] [place] [address], [place] [address] Jun, [facility] [address] [id number] [address] [place] [address], [place] [address] Jun, [facility] [address] [id number] [address] [place] [address], [place] [address] Jun, [facility] [address] [id number] [address] [place] [address], [place] [address] Jun, [facility] [address] [id number] [address] [place] [address], [place] [address] Jun, [facility] [address] [id number] [address] [place] [address], [place] [address] Jun, [facility] [address] [id number] [address] [place] [address], [place] [address] Jun, [facility] [address] [id number] [address] [place] [address], [place] [address] Jun, [facility] [address] [id number] [address] [place] [address], [place] [address] Jun, [facility] [address] [id number] [address] [place] [address], [place] [address] Jun, [facility] [address] [id number] [address] [place] [address], [place] [address] Apr, [facility] [address] [id number] [address] [place] [address], [place] [address] Apr, [facility] [address] [id number] [address] [place] [address], [place] [address] Jan, [facility] [address] [id number] [address] [place] [address], [place] [address] Jan, [facility] [address] [id number] [address] [place] [address], [place] [address] Jan, [facility] [address] [id number] [address] [place] [address], [place] [address] Jan, [facility] [address] [id number] [address] [place] [address], [place] [address] Jan, [facility] [address] [id number] [address] [place] [address], [place] [address] Jan, [facility] [address] [id number] [address] [place] [address], [place] [address] Jan, [facility] [address] [place] [id number] Jan, [facility] [address] [id number] [address] [place] [address], [place] [address] Dec, [facility] [address] [id number] [address] [place] [address] Dec, [facility] [address] [id number] [address] [place] [address] Dec, [facility] [address] [id number] [address] [place] [address] Dec, [facility] [address] [id number] [address] [place] [address] Dec, [facility] [address] [id number] [address] [place] [address] Dec, [facility] [address] [id number] [address] [place] [address] Dec, [facility] [address] [id number] [address] [place] [address] Nov, [facility] [address] [id number] [address] [place] [address] Nov, IMMUNIZATIONS No Known Immunizations SOCIAL HISTORY Never Assessed REASON FOR VISIT PLAN OF CARE VITAL SIGNS MEDICATIONS No Known Medications RESULTS No Results PROCEDURES No Known procedures INSTRUCTIONS MEDICATIONS ADMINISTERED No Known Medications
--- OUTSIDE RECORDS SUMMARY | 2019-10-21 19:12 | XMS REPORT ---
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 Active Problem Suicide and self-inflicted p oisoning by unspecified drug or medicinal substance E950.5 Active Problem Other dyspnea and respiratory abnormalities 786.09 Active 673713505 Problem Dysuria 788.1 Active 06944558 Problem Congestive heart failure, unspecified 428.0 Active 80893508 Problem Other screening breast examination V76.19 Active 19575383 Problem Unspecified hypotension 458.9 Active 22125713 Problem Other specified disorders of bladder 596.89 Active 58053024 Problem Encounter for long-term (current) use of other medications V58.69 Active 079188846 Problem Counseling on substance use and abuse V65.42 Active 377075211 Problem Unspecified myalgia and myositis 729.1 Active 098340511 Problem Pain in soft tissues of limb 729.5 A ctive 32138340 Problem Urinary tract infection, site not specified 599.0 Active 02870284 Problem Pain in joint, lower leg 719.46 Activ e 462983875 Problem Chronic airway obstruction, not elsewhere classified 496 Active 08010818 Problem Neurogenic bladder, NOS 596.54 Active 993871907 Problem Acute sinusitis, unspecified 461.9 A ctive 97774577 Problem Personal history of pulmonary embolism V12.55 Active 332479327 Problem Acute bronchitis 466.0 Active 105 41532 Problem Unspecified hearing loss 389.9 Activ e 12050923 Problem Unspecified otalgia 388.70 Active 04550901 Problem Unspecified hereditary and idiopathic peripheral neuropath y 356.9 Active 382164315 Problem Other and unspecified hyperlipidemia 272.4 Active 75642443 Problem Altered mental status 780.97 Active 017546052 Problem Diabetes mellitus without me ntion of complication, type II or unspecified type, not stated as uncontrolled 250.00 Active 651060898 Problem Shortness of breath 786.05 Active 879455682 Problem Other malaise and fatigue 780.79 Acti ve 097088676 Problem Other chronic pain 338.29 Active 8 8554311 Problem Nondependent tobacco use disorder 305.1 Active 566673443 Problem Amphetamine and other psychostimulant de pendence, 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 9 and Shortness of breath R06.[address] [id number] [address] Aug, [facility] [address] [facility] [id number] [address] [place] [address] Sep, [facility] [address] [facility] [id number] [address] [place] [address] Sep, [facility] [address] [facility] [id number] [address] [place] [address] Aug, [facility] [address] [facility] [id number] [address] [place] [address] Aug, [facility] [address] [facility] [id number] [address] [place] [address] Aug, [facility] [address] [facility] [id number] [address] [place] [address] Aug, [facility] [address] [id number] [address] [place] [address] [place] [address] Aug, [facility] [address] [id number] [address] [place] [address], [place] [address] Aug, [facility] [address] [id number] [address] [place] [address], [place] [address] Jul, 2014 [facility] [address] [id number] [address] [place] [address], [place] [address] Jul, 2014 [facility] [address] [id number] [address] [place] [address], [place] [address] Jul, 2014 [facility] [address] [id number] [address] [place] [address], [place] [address] Jul, 2014 [facility] [address] [id number] [address] [place] [address], [place] [address] Jul, 2014 [facility] [address] [id number] [address] [place] [address], [place] [address] Jul, 2014 [facility] [address] [id number] [address] [place] [address], [place] [address] 16 Jul, 2014 [facility] [address] [id number] [address] [place] [address], [place] [address] Jul, [facility] [address] [id number] [address] [place] [address], [place] [address] Jul, [facility] [address] [id number] [address] [place] [address], [place] [address] Jun, [facility] [address] [id number] [address] [place] [address], [place] [address] Jun, [facility] [address] [id number] [address] [place] [address], [place] [address] Jun, [facility] [address] [id number] [address] [place] [address], [place] [address] Jun, [facility] [address] [id number] [address] [place] [address], [place] [address] Jun, [facility] [address] [id number] [address] [place] [address], [place] [address] Jun, [facility] [address] [id number] [address] [place] [address], [place] [address] Jun, [facility] [address] [id number] [address] [place] [address], [place] [address] Jun, [facility] [address] [id number] [address] [place] [address], [place] [address] Jun, [facility] [address] [id number] [address] [place] [address], [place] [address] Jun, [facility] [address] [id number] [address] [place] [address], [place] [address] May, [facility] [address] [id number] [address] [place] [address], [place] [address] May, [facility] [address] [id number] [address] [place] [address], [place] [address] 29 May, 2014 [facility] [address] [id number] [address] [place] [address], [place] [address] 29 May, 2014 [facility] [address] [id number] [address] [place] [address], [place] [address] 29 May, 2014 [facility] [address] [id number] [address] [place] [address], [place] [address] May, [facility] [address] [id number] [address] [place] [address], [place] [address] 19 May, 2014 [facility] [address] [id number] [address] [place] [address], [place] [address] 18 May, 2014 [facility] [address] [id number] [address] [place] [address], [place] [address] 18 May, 2014 [facility] [address] [id number] [address] [place] [address], [place] [address] 15 May, 2014 [facility] [address] [id number] [address] [place] [address], [place] [address] 15 May, 2014 [facility] [address] [id number] [address] [place] [address], [place] [address] Apr, [facility] [address] [id number] [address] [place] [address], [place] [address] Apr, [facility] [address] [id number] [address] [place] [address], [place] [address] Apr, [facility] [address] [id number] [address] [place] [address], [place] [address] Apr, [facility] [address] [id number] [address] [place] [address], [place] [address] Mar, [facility] [address] [id number] [address] [place] [address], [place] [address] Mar, [facility] [address] [id number] [address] [place] [address], [place] [address] Mar, [facility] [address] [id number] [address] [place] [address], [place] [address] Mar, [facility] [address] [id number] [address] [place] [address], [place] [address] 23 Feb, 2014 [facility] [address] [id number] [address] [place] [address], [place] [address] 23 Feb, 2014 [facility] [address] [id number] [address] [place] [address], [place] [address] 22 Feb, 2014 [facility] [address] [id number] [address] [place] [address], [place] [address] 22 Feb, 2013 [facility] [address] [id number] [address] [place] [address], [place] [address] 16 Feb, 2014 [facility] [address] [id number] [address] [place] [address], [place] [address] 16 Feb, 2014 [facility] [address] [id number] [address] [place] [address], [place] [address] Jan, [facility] [address] [id number] [facility] [place] [address] Jan, [facility] [address] [id number] [facility] [place] [address] Jan, [facility] [address] [id number] [address] [place] [address], [place] [address] Jan, [facility] [address] [id number] [address] [place] [address], [place] [address] Jan, [facility] [address] [id number] [address] [place] [address], [place] [address] Jan, [facility] [address] [id number] [address] [place] [address], [place] [address] Dec, [facility] [address] [id number] [address] [place] [address], [place] [address] Dec, [facility] [address] [id number] [address] [place] [address], [place] [address] Nov, [facility] [address] [id number] [address] [place] [address], [place] [address] Nov, [facility] [address] [id number] [address] [place] [address], [place] [address] Nov, [facility] [address] [id number] [address] [place] [address], [place] [address] Nov, [facility] [address] [id number] [address] [place] [address], [place] [address] Nov, [facility] [address] [id number] [address] [place] [address], [place] [address] Nov, [facility] [address] [id number] [address] [place] [address], [place] [address] Nov, [facility] [address] [id number] [address] [place] [address], [place] [address] October, [facility] [address] [id number] [address] [place] [address], [place] [address] October, [facility] [address] [id number] [facility] [place] [address] Sep, [facility] [address] [id number] [address] [place] [address], [place] [address] Sep, [facility] [address] [id number] [address] [place] [address], [place] [address] Sep, [facility] [address] [id number] [address] [place] [address], [place] [address] Sep, [facility] [address] [id number] [address] [place] [address], [place] [address] Sep, [facility] [address] [id number] [address] [place] [address], [place] [address] Sep, [facility] [address] [id number] [address] [place] [address], [place] [address] Sep, [facility] [address] [id number] [address] [place] [address], [place] [address] Sep, [facility] [address] [id number] [address] [place] [address], [place] [address] Sep, [facility] [address] [id number] [address] [place] [address], [place] [address] Sep, [facility] [address] [id number] [address] [place] [address], [place] [address] Sep, [facility] [address] [id number] [address] [place] [address], [place] [address] Sep, [facility] [address] [id number] [address] [place] [address], [place] [address] Sep, [facility] [address] [id number] [address] [place] [address], [place] [address] Sep, [facility] [address] [id number] [address] [place] [address], [place] [address] Sep, [facility] [address] [id number] [facility] [place] [address] 24 Aug, 2013 [facility] [address] [id number] [facility] [place] [address] Aug, [facility] [address] [id number] [facility] [place] [address] Aug, [facility] [address] [id number] [address] [place] [address], [place] [address] Aug, [facility] [address] [id number] [address] [place] [address], [place] [address] Aug, [facility] [address] [id number] [address] [place] [address], [place] [address] Aug, [facility] [address] [id number] [address] [place] [address], [place] [address] Aug, [facility] [address] [id number] [address] [place] [address], [place] [address] Aug, [facility] [address] [id number] [address] [place] [address], [place] [address] Aug, [facility] [address] [id number] [address] [place] [address], [place] [address] Aug, [facility] [address] [id number] [address] [place] [address], [place] [address] Jun, [facility] [address] [id number] [address] [place] [address], [place] [address] Jun, [facility] [address] [id number] [address] [place] [address], [place] [address] Jun, [facility] [address] [id number] [address] [place] [address], [place] [address] Jun, [facility] [address] [id number] [address] [place] [address], [place] [address] Jun, [facility] [address] [id number] [address] [place] [address], [place] [address] Jun, [facility] [address] [id number] [address] [place] [address], [place] [address] Jun, [facility] [address] [id number] [address] [place] [address], [place] [address] Jun, [facility] [address] [id number] [address] [place] [address], [place] [address] Jun, [facility] [address] [id number] [address] [place] [address], [place] [address] Jun, [facility] [address] [id number] [address] [place] [address], [place] [address] Jun, [facility] [address] [id number] [address] [place] [address], [place] [address] Jun, [facility] [address] [id number] [address] [place] [address], [place] [address] Apr, [facility] [address] [id number] [address] [place] [address], [place] [address] Apr, [facility] [address] [id number] [address] [place] [address], [place] [address] Jan, [facility] [address] [id number] [address] [place] [address], [place] [address] Jan, [facility] [address] [id number] [address] [place] [address], [place] [address] Jan, [facility] [address] [id number] [address] [place] [address], [place] [address] Jan, [facility] [address] [id number] [address] [place] [address], [place] [address] Jan, [facility] [address] [id number] [address] [place] [address], [place] [address] Jan, [facility] [address] [id number] [address] [place] [address], [place] [address] Jan, [facility] [place] [id number] Jan, [facility] [address] [id number] [address] [place] [address] Dec, [facility] [address] [id number] [address] [place] [address] Dec, [facility] [address] [id number] [address] [place] [address] Dec, [facility] [address] [id number] [address] [place] [address] Dec, [facility] [address] [id number] [address] [place] [address] Dec, [facility] [address] [id number] [address] [place] [address] Dec, [facility] [address] [id number] [address] [place] [address] Dec, [facility] [address] [id number] [address] [place] [address] Nov, [facility] [address] [id number] [address] [place] [address] Nov, IMMUNIZATIONS No Known Immunizations SOCIAL HISTORY Never Assessed REASON FOR VISIT PLAN OF CARE VITAL SIGNS MEDICATIONS Unknown Medications RESULTS No Results PROCEDURES Procedure Date Ordered Result Body Site PROTHROMBIN TIME December 16, 2012 INSTRUCTIONS MEDICATIONS ADMINISTERED No Known Medications
--- OUTSIDE RECORDS SUMMARY | 2019-10-21 19:12 | XMS REPORT ---
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 Active Problem Suicide and self-inflicted p oisoning by unspecified drug or medicinal substance E950.5 Active Problem Other dyspnea and respiratory abnormalities 786.09 Active 789837571 Problem Dysuria 788.1 Active 76434762 Problem Congestive heart failure, unspecified 428.0 Active 40489054 Problem Other screening breast examination V76.19 Active 39324118 Problem Unspecified hypotension 458.9 Active 35375095 Problem Other specified disorders of bladder 596.89 Active 83499258 Problem Encounter for long-term (current) use of other medications V58.69 Active 258229548 Problem Counseling on substance use and abuse V65.42 Active 110972175 Problem Unspecified myalgia and myositis 729.1 Active 853071543 Problem Pain in soft tissues of limb 729.5 A ctive 49573258 Problem Urinary tract infection, site not specified 599.0 Active 76621336 Problem Pain in joint, lower leg 719.46 Activ e 330823837 Problem Chronic airway obstruction, not elsewhere classified 496 Active 03640615 Problem Neurogenic bladder, NOS 596.54 Active 334178763 Problem Acute sinusitis, unspecified 461.9 A ctive 67297973 Problem Personal history of pulmonary embolism V12.55 Active 794454738 Problem Acute bronchitis 466.0 Active 105 54875 Problem Unspecified hearing loss 389.9 Activ e 71064031 Problem Unspecified otalgia 388.70 Active 53208704 Problem Unspecified hereditary and idiopathic peripheral neuropath y 356.9 Active 750914026 Problem Other and unspecified hyperlipidemia 272.4 Active 06706424 Problem Altered mental status 780.97 Active 250178308 Problem Diabetes mellitus without me ntion of complication, type II or unspecified type, not stated as uncontrolled 250.00 Active 171465339 Problem Shortness of breath 786.05 Active 548057422 Problem Other malaise and fatigue 780.79 Acti ve 081545861 Problem Other chronic pain 338.29 Active 8 6697668 Problem Nondependent tobacco use disorder 305.1 Active 817558796 Problem Amphetamine and other psychostimulant de pendence, 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 9 and Shortness of breath R06.[address] [id number] [address] Aug, [facility] [address] [facility] [id number] [address] [place] [address] Sep, [facility] [address] [facility] [id number] [address] [place] [address] Sep, [facility] [address] [facility] [id number] [address] [place] [address] Aug, [facility] [address] [facility] [id number] [address] [place] [address] Aug, [facility] [address] [facility] [id number] [address] [place] [address] Aug, [facility] [address] [facility] [id number] [address] [place] [address] Aug, [facility] [address] [id number] [address] [place] [address] [place] [address] Aug, [facility] [address] [id number] [address] [place] [address], [place] [address] Aug, [facility] [address] [id number] [address] [place] [address], [place] [address] Jul, 2014 [facility] [address] [id number] [address] [place] [address], [place] [address] Jul, 2014 [facility] [address] [id number] [address] [place] [address], [place] [address] Jul, 2014 [facility] [address] [id number] [address] [place] [address], [place] [address] Jul, 2014 [facility] [address] [id number] [address] [place] [address], [place] [address] Jul, 2014 [facility] [address] [id number] [address] [place] [address], [place] [address] Jul, 2014 [facility] [address] [id number] [address] [place] [address], [place] [address] 16 Jul, 2014 [facility] [address] [id number] [address] [place] [address], [place] [address] Jul, [facility] [address] [id number] [address] [place] [address], [place] [address] Jul, [facility] [address] [id number] [address] [place] [address], [place] [address] Jun, [facility] [address] [id number] [address] [place] [address], [place] [address] Jun, [facility] [address] [id number] [address] [place] [address], [place] [address] Jun, [facility] [address] [id number] [address] [place] [address], [place] [address] Jun, [facility] [address] [id number] [address] [place] [address], [place] [address] Jun, [facility] [address] [id number] [address] [place] [address], [place] [address] Jun, [facility] [address] [id number] [address] [place] [address], [place] [address] Jun, [facility] [address] [id number] [address] [place] [address], [place] [address] Jun, [facility] [address] [id number] [address] [place] [address], [place] [address] Jun, [facility] [address] [id number] [address] [place] [address], [place] [address] Jun, [facility] [address] [id number] [address] [place] [address], [place] [address] May, [facility] [address] [id number] [address] [place] [address], [place] [address] May, [facility] [address] [id number] [address] [place] [address], [place] [address] 29 May, 2014 [facility] [address] [id number] [address] [place] [address], [place] [address] 29 May, 2014 [facility] [address] [id number] [address] [place] [address], [place] [address] 29 May, 2014 [facility] [address] [id number] [address] [place] [address], [place] [address] May, [facility] [address] [id number] [address] [place] [address], [place] [address] 19 May, 2014 [facility] [address] [id number] [address] [place] [address], [place] [address] 18 May, 2014 [facility] [address] [id number] [address] [place] [address], [place] [address] 18 May, 2014 [facility] [address] [id number] [address] [place] [address], [place] [address] 15 May, 2014 [facility] [address] [id number] [address] [place] [address], [place] [address] 15 May, 2014 [facility] [address] [id number] [address] [place] [address], [place] [address] Apr, [facility] [address] [id number] [address] [place] [address], [place] [address] Apr, [facility] [address] [id number] [address] [place] [address], [place] [address] Apr, [facility] [address] [id number] [address] [place] [address], [place] [address] Apr, [facility] [address] [id number] [address] [place] [address], [place] [address] Mar, [facility] [address] [id number] [address] [place] [address], [place] [address] Mar, [facility] [address] [id number] [address] [place] [address], [place] [address] Mar, [facility] [address] [id number] [address] [place] [address], [place] [address] Mar, [facility] [address] [id number] [address] [place] [address], [place] [address] 23 Feb, 2014 [facility] [address] [id number] [address] [place] [address], [place] [address] 23 Feb, 2014 [facility] [address] [id number] [address] [place] [address], [place] [address] 22 Feb, 2014 [facility] [address] [id number] [address] [place] [address], [place] [address] 22 Feb, 2013 [facility] [address] [id number] [address] [place] [address], [place] [address] 16 Feb, 2014 [facility] [address] [id number] [address] [place] [address], [place] [address] 16 Feb, 2014 [facility] [address] [id number] [address] [place] [address], [place] [address] Jan, [facility] [address] [id number] [facility] [place] [address] Jan, [facility] [address] [id number] [facility] [place] [address] Jan, [facility] [address] [id number] [address] [place] [address], [place] [address] Jan, [facility] [address] [id number] [address] [place] [address], [place] [address] Jan, [facility] [address] [id number] [address] [place] [address], [place] [address] Jan, [facility] [address] [id number] [address] [place] [address], [place] [address] Dec, [facility] [address] [id number] [address] [place] [address], [place] [address] Dec, [facility] [address] [id number] [address] [place] [address], [place] [address] Nov, [facility] [address] [id number] [address] [place] [address], [place] [address] Nov, [facility] [address] [id number] [address] [place] [address], [place] [address] Nov, [facility] [address] [id number] [address] [place] [address], [place] [address] Nov, [facility] [address] [id number] [address] [place] [address], [place] [address] Nov, [facility] [address] [id number] [address] [place] [address], [place] [address] Nov, [facility] [address] [id number] [address] [place] [address], [place] [address] Nov, [facility] [address] [id number] [address] [place] [address], [place] [address] October, [facility] [address] [id number] [address] [place] [address], [place] [address] October, [facility] [address] [id number] [facility] [place] [address] Sep, [facility] [address] [id number] [address] [place] [address], [place] [address] Sep, [facility] [address] [id number] [address] [place] [address], [place] [address] Sep, [facility] [address] [id number] [address] [place] [address], [place] [address] Sep, [facility] [address] [id number] [address] [place] [address], [place] [address] Sep, [facility] [address] [id number] [address] [place] [address], [place] [address] Sep, [facility] [address] [id number] [address] [place] [address], [place] [address] Sep, [facility] [address] [id number] [address] [place] [address], [place] [address] Sep, [facility] [address] [id number] [address] [place] [address], [place] [address] Sep, [facility] [address] [id number] [address] [place] [address], [place] [address] Sep, [facility] [address] [id number] [address] [place] [address], [place] [address] Sep, [facility] [address] [id number] [address] [place] [address], [place] [address] Sep, [facility] [address] [id number] [address] [place] [address], [place] [address] Sep, [facility] [address] [id number] [address] [place] [address], [place] [address] Sep, [facility] [address] [id number] [address] [place] [address], [place] [address] Sep, [facility] [address] [id number] [facility] [place] [address] 24 Aug, 2013 [facility] [address] [id number] [facility] [place] [address] Aug, [facility] [address] [id number] [facility] [place] [address] Aug, [facility] [address] [id number] [address] [place] [address], [place] [address] Aug, [facility] [address] [id number] [address] [place] [address], [place] [address] Aug, [facility] [address] [id number] [address] [place] [address], [place] [address] Aug, [facility] [address] [id number] [address] [place] [address], [place] [address] Aug, [facility] [address] [id number] [address] [place] [address], [place] [address] Aug, [facility] [address] [id number] [address] [place] [address], [place] [address] Aug, [facility] [address] [id number] [address] [place] [address], [place] [address] Aug, [facility] [address] [id number] [address] [place] [address], [place] [address] Jun, [facility] [address] [id number] [address] [place] [address], [place] [address] Jun, [facility] [address] [id number] [address] [place] [address], [place] [address] Jun, [facility] [address] [id number] [address] [place] [address], [place] [address] Jun, [facility] [address] [id number] [address] [place] [address], [place] [address] Jun, [facility] [address] [id number] [address] [place] [address], [place] [address] Jun, [facility] [address] [id number] [address] [place] [address], [place] [address] Jun, [facility] [address] [id number] [address] [place] [address], [place] [address] Jun, [facility] [address] [id number] [address] [place] [address], [place] [address] Jun, [facility] [address] [id number] [address] [place] [address], [place] [address] Jun, [facility] [address] [id number] [address] [place] [address], [place] [address] Jun, [facility] [address] [id number] [address] [place] [address], [place] [address] Jun, [facility] [address] [id number] [address] [place] [address], [place] [address] Apr, [facility] [address] [id number] [address] [place] [address], [place] [address] Apr, [facility] [address] [id number] [address] [place] [address], [place] [address] Jan, [facility] [address] [id number] [address] [place] [address], [place] [address] Jan, [facility] [address] [id number] [address] [place] [address], [place] [address] Jan, [facility] [address] [id number] [address] [place] [address], [place] [address] Jan, [facility] [address] [id number] [address] [place] [address], [place] [address] Jan, [facility] [address] [id number] [address] [place] [address], [place] [address] Jan, [facility] [address] [id number] [address] [place] [address], [place] [address] Jan, [facility] [address] [place] [id number] Jan, [facility] [address] [id number] [address] [place] [address] Dec, [facility] [address] [id number] [address] [place] [address] Dec, [facility] [address] [id number] [address] [place] [address] Dec, [facility] [address] [id number] [address] [place] [address] Dec, [facility] [address] [id number] [address] [place] [address] Dec, [facility] [address] [id number] [address] [place] [address] Dec, [facility] [address] [id number] [address] [place] [address] Dec, [facility] [address] [id number] [address] [place] [address] Nov, [facility] [address] [id number] [address] [place] [address] Nov, IMMUNIZATIONS No Known Immunizations SOCIAL HISTORY Never Assessed REASON FOR VISIT PLAN OF CARE VITAL SIGNS MEDICATIONS Unknown Medications RESULTS No Results PROCEDURES No Known procedures INSTRUCTIONS MEDICATIONS ADMINISTERED No Known Medications
--- OUTSIDE RECORDS SUMMARY | 2019-10-21 19:12 | XMS REPORT ---
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 Active Problem Suicide and self-inflicted p oisoning by unspecified drug or medicinal substance E950.5 Active Problem Other dyspnea and respiratory abnormalities 786.09 Active 406901227 Problem Dysuria 788.1 Active 75628909 Problem Congestive heart failure, unspecified 428.0 Active 18062521 Problem Other screening breast examination V76.19 Active 87910390 Problem Unspecified hypotension 458.9 Active 63998257 Problem Other specified disorders of bladder 596.89 Active 72633994 Problem Encounter for long-term (current) use of other medications V58.69 Active 588762195 Problem Counseling on substance use and abuse V65.42 Active 756031843 Problem Unspecified myalgia and myositis 729.1 Active 625139114 Problem Pain in soft tissues of limb 729.5 A ctive 25690602 Problem Urinary tract infection, site not specified 599.0 Active 36608870 Problem Pain in joint, lower leg 719.46 Activ e 194442807 Problem Chronic airway obstruction, not elsewhere classified 496 Active 72393792 Problem Neurogenic bladder, NOS 596.54 Active 174046443 Problem Acute sinusitis, unspecified 461.9 A ctive 90450598 Problem Personal history of pulmonary embolism V12.55 Active 684282949 Problem Acute bronchitis 466.0 Active 105 57786 Problem Unspecified hearing loss 389.9 Activ e 72270797 Problem Unspecified otalgia 388.70 Active 14044038 Problem Unspecified hereditary and idiopathic peripheral neuropath y 356.9 Active 310775394 Problem Other and unspecified hyperlipidemia 272.4 Active 23338626 Problem Altered mental status 780.97 Active 139388338 Problem Diabetes mellitus without me ntion of complication, type II or unspecified type, not stated as uncontrolled 250.00 Active 480065997 Problem Shortness of breath 786.05 Active 857480974 Problem Other malaise and fatigue 780.79 Acti ve 448557306 Problem Other chronic pain 338.29 Active 8 1897181 Problem Nondependent tobacco use disorder 305.1 Active 390282479 Problem Amphetamine and other psychostimulant de pendence, 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 [address] [id number] [address] Aug, Cough R05 ; Sore throat J02. 9 and Shortness of breath R06.[address] [id number] [address] Aug, [facility] [address] [facility] [id number] [address] [place] [address] Sep, [facility] [address] [facility] [id number] [address] [place] [address] Sep, [facility] [address] [facility] [id number] [address] [place] [address] Aug, [facility] [address] [facility] [id number] [address] [place] [address] Aug, [facility] [address] [facility] [id number] [address] [place] [address] Aug, [facility] [address] [facility] [id number] [address] [place] [address] Aug, [facility] [address] [id number] [address] [place] [address] [place] [address] Aug, [facility] [address] [id number] [address] [place] [address], [place] [address] Aug, [facility] [address] [id number] [address] [place] [address], [place] [address] Jul, 2014 [facility] [address] [id number] [address] [place] [address], [place] [address] Jul, 2014 [facility] [address] [id number] [address] [place] [address], [place] [address] Jul, 2014 [facility] [address] [id number] [address] [place] [address], [place] [address] Jul, 2014 [facility] [address] [id number] [address] [place] [address], [place] [address] Jul, 2014 [facility] [address] [id number] [address] [place] [address], [place] [address] Jul, 2014 [facility] [address] [id number] [address] [place] [address], [place] [address] 16 Jul, 2014 [facility] [address] [id number] [address] [place] [address], [place] [address] Jul, [facility] [address] [id number] [address] [place] [address], [place] [address] Jul, [facility] [address] [id number] [address] [place] [address], [place] [address] Jun, [facility] [address] [id number] [address] [place] [address], [place] [address] Jun, [facility] [address] [id number] [address] [place] [address], [place] [address] Jun, [facility] [address] [id number] [address] [place] [address], [place] [address] Jun, [facility] [address] [id number] [address] [place] [address], [place] [address] Jun, [facility] [address] [id number] [address] [place] [address], [place] [address] Jun, [facility] [address] [id number] [address] [place] [address], [place] [address] Jun, [facility] [address] [id number] [address] [place] [address], [place] [address] Jun, [facility] [address] [id number] [address] [place] [address], [place] [address] Jun, [facility] [address] [id number] [address] [place] [address], [place] [address] Jun, [facility] [address] [id number] [address] [place] [address], [place] [address] May, [facility] [address] [id number] [address] [place] [address], [place] [address] May, [facility] [address] [id number] [address] [place] [address], [place] [address] 29 May, 2014 [facility] [address] [id number] [address] [place] [address], [place] [address] 29 May, 2014 [facility] [address] [id number] [address] [place] [address], [place] [address] 29 May, 2014 [facility] [address] [id number] [address] [place] [address], [place] [address] May, [facility] [address] [id number] [address] [place] [address], [place] [address] 19 May, 2014 [facility] [address] [id number] [address] [place] [address], [place] [address] 18 May, 2014 [facility] [address] [id number] [address] [place] [address], [place] [address] 18 May, 2014 [facility] [address] [id number] [address] [place] [address], [place] [address] 15 May, 2014 [facility] [address] [id number] [address] [place] [address], [place] [address] 15 May, 2014 [facility] [address] [id number] [address] [place] [address], [place] [address] Apr, [facility] [address] [id number] [address] [place] [address], [place] [address] Apr, [facility] [address] [id number] [address] [place] [address], [place] [address] Apr, [facility] [address] [id number] [address] [place] [address], [place] [address] Apr, [facility] [address] [id number] [address] [place] [address], [place] [address] Mar, [facility] [address] [id number] [address] [place] [address], [place] [address] Mar, [facility] [address] [id number] [address] [place] [address], [place] [address] Mar, [facility] [address] [id number] [address] [place] [address], [place] [address] Mar, [facility] [address] [id number] [address] [place] [address], [place] [address] 23 Feb, 2014 [facility] [address] [id number] [address] [place] [address], [place] [address] 23 Feb, 2014 [facility] [address] [id number] [address] [place] [address], [place] [address] 22 Feb, 2014 [facility] [address] [id number] [address] [place] [address], [place] [address] 22 Feb, 2013 [facility] [address] [id number] [address] [place] [address], [place] [address] 16 Feb, 2014 [facility] [address] [id number] [address] [place] [address], [place] [address] 16 Feb, 2014 [facility] [address] [id number] [address] [place] [address], [place] [address] Jan, [facility] [address] [id number] [facility] [place] [address] Jan, [facility] [address] [id number] [facility] [place] [address] Jan, [facility] [address] [id number] [address] [place] [address], [place] [address] Jan, [facility] [address] [id number] [address] [place] [address], [place] [address] Jan, [facility] [address] [id number] [address] [place] [address], [place] [address] Jan, [facility] [address] [id number] [address] [place] [address], [place] [address] Dec, [facility] [address] [id number] [address] [place] [address], [place] [address] Dec, [facility] [address] [id number] [address] [place] [address], [place] [address] Nov, [facility] [address] [id number] [address] [place] [address], [place] [address] Nov, [facility] [address] [id number] [address] [place] [address], [place] [address] Nov, [facility] [address] [id number] [address] [place] [address], [place] [address] Nov, [facility] [address] [id number] [address] [place] [address], [place] [address] Nov, [facility] [address] [id number] [address] [place] [address], [place] [address] Nov, [facility] [address] [id number] [address] [place] [address], [place] [address] Nov, [facility] [address] [id number] [address] [place] [address], [place] [address] October, [facility] [address] [id number] [address] [place] [address], [place] [address] October, [facility] [address] [id number] [facility] [place] [address] Sep, [facility] [address] [id number] [address] [place] [address], [place] [address] Sep, [facility] [address] [id number] [address] [place] [address], [place] [address] Sep, [facility] [address] [id number] [address] [place] [address], [place] [address] Sep, [facility] [address] [id number] [address] [place] [address], [place] [address] Sep, [facility] [address] [id number] [address] [place] [address], [place] [address] Sep, [facility] [address] [id number] [address] [place] [address], [place] [address] Sep, [facility] [address] [id number] [address] [place] [address], [place] [address] Sep, [facility] [address] [id number] [address] [place] [address], [place] [address] Sep, [facility] [address] [id number] [address] [place] [address], [place] [address] Sep, [facility] [address] [id number] [address] [place] [address], [place] [address] Sep, [facility] [address] [id number] [address] [place] [address], [place] [address] Sep, [facility] [address] [id number] [address] [place] [address], [place] [address] Sep, [facility] [address] [id number] [address] [place] [address], [place] [address] Sep, [facility] [address] [id number] [address] [place] [address], [place] [address] Sep, [facility] [address] [id number] [facility] [place] [address] 24 Aug, 2013 [facility] [address] [id number] [facility] [place] [address] Aug, [facility] [address] [id number] [facility] [place] [address] Aug, [facility] [address] [id number] [address] [place] [address], [place] [address] Aug, [facility] [address] [id number] [address] [place] [address], [place] [address] Aug, [facility] [address] [id number] [address] [place] [address], [place] [address] Aug, [facility] [address] [id number] [address] [place] [address], [place] [address] Aug, [facility] [address] [id number] [address] [place] [address], [place] [address] Aug, [facility] [address] [id number] [address] [place] [address], [place] [address] Aug, [facility] [address] [id number] [address] [place] [address], [place] [address] Aug, [facility] [address] [id number] [address] [place] [address], [place] [address] Jun, [facility] [address] [id number] [address] [place] [address], [place] [address] Jun, [facility] [address] [id number] [address] [place] [address], [place] [address] Jun, [facility] [address] [id number] [address] [place] [address], [place] [address] Jun, [facility] [address] [id number] [address] [place] [address], [place] [address] Jun, [facility] [address] [id number] [address] [place] [address], [place] [address] Jun, [facility] [address] [id number] [address] [place] [address], [place] [address] Jun, [facility] [address] [id number] [address] [place] [address], [place] [address] Jun, [facility] [address] [id number] [address] [place] [address], [place] [address] Jun, [facility] [address] [id number] [address] [place] [address], [place] [address] Jun, [facility] [address] [id number] [address] [place] [address], [place] [address] Jun, [facility] [address] [id number] [address] [place] [address], [place] [address] Jun, [facility] [address] [id number] [address] [place] [address], [place] [address] Apr, [facility] [address] [id number] [address] [place] [address], [place] [address] Apr, [facility] [address] [id number] [address] [place] [address], [place] [address] Jan, [facility] [address] [id number] [address] [place] [address], [place] [address] Jan, [facility] [address] [id number] [address] [place] [address], [place] [address] Jan, [facility] [address] [id number] [address] [place] [address], [place] [address] Jan, [facility] [address] [id number] [address] [place] [address], [place] [address] Jan, [facility] [address] [id number] [address] [place] [address], [place] [address] Jan, [facility] [address] [id number] [address] [place] [address], [place] [address] Jan, [facility] [place] [id number] Jan, [facility] [address] [id number] [address] [place] [address] Dec, [facility] [address] [id number] [address] [place] [address] Dec, [facility] [address] [id number] [address] [place] [address] Dec, [facility] [address] [id number] [address] [place] [address] Dec, [facility] [address] [id number] [address] [place] [address] Dec, [facility] [address] [id number] [address] [place] [address] Dec, [facility] [address] [id number] [address] [place] [address] Dec, [facility] [address] [id number] [address] [place] [address] Nov, [facility] [address] [id number] [address] [place] [address] Nov, IMMUNIZATIONS No Known Immunizations SOCIAL HISTORY Never Assessed REASON FOR VISIT PLAN OF CARE VITAL SIGNS MEDICATIONS Unknown Medications RESULTS No Results PROCEDURES No Known procedures INSTRUCTIONS MEDICATIONS ADMINISTERED No Known Medications
--- OUTSIDE RECORDS SUMMARY | 2019-10-21 19:13 | XMS REPORT ---
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 Active Problem Suicide and self-inflicted p oisoning by unspecified drug or medicinal substance E950.5 Active Problem Other dyspnea and respiratory abnormalities 786.09 Active 492681199 Problem Dysuria 788.1 Active 11037730 Problem Congestive heart failure, unspecified 428.0 Active 05051317 Problem Other screening breast examination V76.19 Active 30066879 Problem Unspecified hypotension 458.9 Active 55947673 Problem Other specified disorders of bladder 596.89 Active 84194113 Problem Encounter for long-term (current) use of other medications V58.69 Active 626047340 Problem Counseling on substance use and abuse V65.42 Active 771878620 Problem Unspecified myalgia and myositis 729.1 Active 864102281 Problem Pain in soft tissues of limb 729.5 A ctive 21600933 Problem Urinary tract infection, site not specified 599.0 Active 76855014 Problem Pain in joint, lower leg 719.46 Activ e 990107145 Problem Chronic airway obstruction, not elsewhere classified 496 Active 56333041 Problem Neurogenic bladder, NOS 596.54 Active 998013468 Problem Acute sinusitis, unspecified 461.9 A ctive 73630468 Problem Personal history of pulmonary embolism V12.55 Active 826146231 Problem Acute bronchitis 466.0 Active 105 15283 Problem Unspecified hearing loss 389.9 Activ e 08061455 Problem Unspecified otalgia 388.70 Active 47797521 Problem Unspecified hereditary and idiopathic peripheral neuropath y 356.9 Active 414077543 Problem Other and unspecified hyperlipidemia 272.4 Active 64109030 Problem Altered mental status 780.97 Active 599028876 Problem Diabetes mellitus without me ntion of complication, type II or unspecified type, not stated as uncontrolled 250.00 Active 549124981 Problem Shortness of breath 786.05 Active 225295620 Problem Other malaise and fatigue 780.79 Acti ve 161706560 Problem Other chronic pain 338.29 Active 8 2838863 Problem Nondependent tobacco use disorder 305.1 Active 264263420 Problem Amphetamine and other psychostimulant de pendence, 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 9 and Shortness of breath R06.[address] [id number] [address] Aug, [facility] [address] [facility] [id number] [address] [place] [address] Sep, [facility] [address] [facility] [id number] [address] [place] [address] Sep, [facility] [address] [facility] [id number] [address] [place] [address] Aug, [facility] [address] [facility] [id number] [address] [place] [address] Aug, [facility] [address] [facility] [id number] [address] [place] [address] Aug, [facility] [address] [facility] [id number] [address] [place] [address] Aug, [facility] [address] [facility] [id number] [address] [place] [address] Aug, [facility] [address] [facility] [id number] [address] [place] [address] Aug, [facility] [address] [id number] [address] [place] [address], [place] [address] Jul, [facility] [address] [id number] [address] [place] [address], [place] [address] Jul, [facility] [address] [id number] [address] [place] [address], [place] [address] Jul, [facility] [address] [id number] [address] [place] [address], [place] [address] Jul, [facility] [address] [id number] [address] [place] [address], [place] [address] Jul, [facility] [address] [id number] [address] [place] [address], [place] [address] Jul, [facility] [address] [id number] [address] [place] [address], [place] [address] Jul, [facility] [address] [id number] [address] [place] [address], [place] [address] Jul, [facility] [address] [id number] [address] [place] [address], [place] [address] Jul, [facility] [address] [id number] [address] [place] [address], [place] [address] Jun, [facility] [address] [id number] [address] [place] [address], [place] [address] Jun, [facility] [address] [id number] [address] [place] [address], [place] [address] Jun, [facility] [address] [id number] [address] [place] [address], [place] [address] Jun, [facility] [address] [id number] [address] [place] [address], [place] [address] Jun, [facility] [address] [id number] [address] [place] [address], [place] [address] Jun, [facility] [address] [id number] [address] [place] [address], [place] [address] Jun, [facility] [address] [id number] [address] [place] [address], [place] [address] Jun, [facility] [address] [id number] [address] [place] [address], [place] [address] Jun, [facility] [address] [id number] [address] [place] [address], [place] [address] Jun, [facility] [address] [id number] [address] [place] [address], [place] [address] May, [facility] [address] [id number] [address] [place] [address], [place] [address] May, [facility] [address] [id number] [address] [place] [address], [place] [address] May, [facility] [address] [id number] [address] [place] [address], [place] [address] May, [facility] [address] [id number] [address] [place] [address], [place] [address] 29 May, 2014 [facility] [address] [id number] [address] [place] [address], [place] [address] May, [facility] [address] [id number] [address] [place] [address], [place] [address] May, [facility] [address] [id number] [address] [place] [address], [place] [address] 18 May, 2014 [facility] [address] [id number] [address] [place] [address], [place] [address] 18 May, 2014 [facility] [address] [id number] [address] [place] [address], [place] [address] 15 May, 2014 [facility] [address] [id number] [address] [place] [address], [place] [address] 15 May, 2014 [facility] [address] [id number] [address] [place] [address], [place] [address] Apr, [facility] [address] [id number] [address] [place] [address], [place] [address] Apr, [facility] [address] [id number] [address] [place] [address], [place] [address] Apr, [facility] [address] [id number] [address] [place] [address], [place] [address] Apr, [facility] [address] [id number] [address] [place] [address], [place] [address] Mar, [facility] [address] [id number] [address] [place] [address], [place] [address] Mar, [facility] [address] [id number] [address] [place] [address], [place] [address] Mar, [facility] [address] [id number] [address] [place] [address], [place] [address] Mar, [facility] [address] [id number] [address] [place] [address], [place] [address] Feb, [facility] [address] [id number] [address] [place] [address], [place] [address] 23 Feb, 2014 [facility] [address] [id number] [address] [place] [address], [place] [address] 22 Feb, 2014 [facility] [address] [id number] [address] [place] [address], [place] [address] 22 Feb, 2014 [facility] [address] [id number] [address] [place] [address], [place] [address] 16 Feb, 2014 [facility] [address] [id number] [address] [place] [address], [place] [address] 16 Feb, 2014 [facility] [address] [id number] [address] [place] [address], [place] [address] Jan, [facility] [address] [id number] [address] [place] [address], [place] [address] Jan, [facility] [address] [id number] [address] [place] [address], [place] [address] Jan, [facility] [address] [id number] [address] [place] [address], [place] [address] Jan, [facility] [address] [id number] [address] [place] [address], [place] [address] Jan, [facility] [address] [id number] [address] [place] [address], [place] [address] Jan, [facility] [address] [id number] [address] [place] [address], [place] [address] Dec, [facility] [address] [id number] [address] [place] [address], [place] [address] Dec, [facility] [address] [id number] [address] [place] [address], [place] [address] Nov, [facility] [address] [id number] [address] [place] [address], [place] [address] Nov, [facility] [address] [id number] [address] [place] [address], [place] [address] Nov, [facility] [address] [id number] [address] [place] [address], [place] [address] Nov, [facility] [address] [id number] [address] [place] [address], [place] [address] Nov, [facility] [address] [id number] [address] [place] [address], [place] [address] Nov, [facility] [address] [id number] [address] [place] [address], [place] [address] Nov, [facility] [address] [id number] [address] [place] [address], [place] [address] October, [facility] [address] [id number] [address] [place] [address], [place] [address] October, [facility] [address] [id number] [address] [place] [address], [place] [address] Sep, [facility] [address] [id number] [facility] [address] Sep, [facility] [address] [id number] [facility] [address] Sep, [facility] [address] [id number] [facility] [address] Sep, [facility] [address] [id number] [address] [place] [address], [place] [address] 17 Sep, 2013 [facility] [address] [id number] [address] [place] [address], [place] [address] 16 Sep, 2013 [facility] [address] [id number] [address] [place] [address], [place] [address] Sep, [facility] [address] [id number] [address] [place] [address], [place] [address] Sep, [facility] [address] [id number] [address] [place] [address], [place] [address] Sep, [facility] [address] [id number] [address] [place] [address], [place] [address] Sep, [facility] [address] [id number] [address] [place] [address], [place] [address] Sep, [facility] [address] [id number] [address] [place] [address], [place] [address] Sep, [facility] [address] [id number] [address] [place] [address], [place] [address] Sep, [facility] [address] [id number] [address] [place] [address], [place] [address] Sep, [facility] [address] [id number] [address] [place] [address], [place] [address] 08 Sep, 2013 [facility] [address] [id number] [address] [place] [address], [place] [address] 24 Aug, 2013 [facility] [address] [id number] [address] [place] [address], [place] [address] Aug, [facility] [address] [id number] [facility] [address] Aug, [facility] [address] [id number] [address] [place] [address], [place] [address] Aug, [facility] [address] [id number] [facility] [address] Aug, [facility] [address] [id number] [address] [place] [address], [place] [address] Aug, [facility] [address] [id number] [address] [place] [address], [place] [address] Aug, [facility] [address] [id number] [address] [place] [address], [place] [address] Aug, [facility] [address] [id number] [address] [place] [address], [place] [address] Aug, [facility] [address] [id number] [address] [place] [address], [place] [address] Aug, [facility] [address] [id number] [address] [place] [address], [place] [address] Jun, [facility] [address] [id number] [address] [place] [address], [place] [address] Jun, [facility] [address] [id number] [address] [place] [address], [place] [address] Jun, [facility] [address] [id number] [address] [place] [address], [place] [address] Jun, [facility] [address] [id number] [address] [place] [address], [place] [address] Jun, [facility] [address] [id number] [address] [place] [address], [place] [address] Jun, [facility] [address] [id number] [address] [place] [address], [place] [address] Jun, [facility] [address] [id number] [address] [place] [address], [place] [address] Jun, [facility] [address] [id number] [address] [place] [address], [place] [address] Jun, [facility] [address] [id number] [address] [place] [address], [place] [address] Jun, [facility] [address] [id number] [address] [place] [address], [place] [address] Jun, [facility] [address] [id number] [address] [place] [address], [place] [address] Jun, [facility] [address] [id number] [address] [place] [address], [place] [address] Apr, [facility] [address] [id number] [address] [place] [address], [place] [address] Apr, [facility] [address] [id number] [address] [place] [address], [place] [address] Jan, [facility] [address] [id number] [address] [place] [address], [place] [address] Jan, [facility] [address] [id number] [address] [place] [address], [place] [address] Jan, [facility] [address] [id number] [address] [place] [address], [place] [address] Jan, [facility] [address] [id number] [address] [place] [address], [place] [address] Jan, [facility] [address] [id number] [address] [place] [address], [place] [address] Jan, [facility] [address] [id number] [address] [place] [address], [place] [address] Jan, [facility] [address] [place] [id number] Jan, [facility] [address] [id number] [address] [place] [address], [place] [address] Dec, [facility] [address] [id number] [address] [place] [address] Dec, [facility] [address] [id number] [address] [place] [address] Dec, [facility] [address] [id number] [address] [place] [address] Dec, [facility] [address] [id number] [address] [place] [address] Dec, [facility] [address] [id number] [address] [place] [address] Dec, [facility] [address] [id number] [address] [place] [address] Dec, [facility] [address] [id number] [address] [place] [address] Nov, [facility] [address] [id number] [address] [place] [address] Nov, IMMUNIZATIONS No Known Immunizations SOCIAL HISTORY Never Assessed REASON FOR VISIT PLAN OF CARE VITAL SIGNS MEDICATIONS No Known Medications RESULTS No Results PROCEDURES No Known procedures INSTRUCTIONS MEDICATIONS ADMINISTERED No Known Medications
--- OUTSIDE RECORDS SUMMARY | 2019-10-21 19:13 | XMS REPORT ---
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 Active Problem Suicide and self-inflicted p oisoning by unspecified drug or medicinal substance E950.5 Active Problem Other dyspnea and respiratory abnormalities 786.09 Active 151373107 Problem Dysuria 788.1 Active 17610211 Problem Congestive heart failure, unspecified 428.0 Active 63587745 Problem Other screening breast examination V76.19 Active 11235659 Problem Unspecified hypotension 458.9 Active 01787669 Problem Other specified disorders of bladder 596.89 Active 63956230 Problem Encounter for long-term (current) use of other medications V58.69 Active 739535602 Problem Counseling on substance use and abuse V65.42 Active 175652992 Problem Unspecified myalgia and myositis 729.1 Active 241889076 Problem Pain in soft tissues of limb 729.5 A ctive 00309875 Problem Urinary tract infection, site not specified 599.0 Active 49140155 Problem Pain in joint, lower leg 719.46 Activ e 270103385 Problem Chronic airway obstruction, not elsewhere classified 496 Active 16988435 Problem Neurogenic bladder, NOS 596.54 Active 321335360 Problem Acute sinusitis, unspecified 461.9 A ctive 06176271 Problem Personal history of pulmonary embolism V12.55 Active 041815035 Problem Acute bronchitis 466.0 Active 105 12281 Problem Unspecified hearing loss 389.9 Activ e 95905670 Problem Unspecified otalgia 388.70 Active 49786494 Problem Unspecified hereditary and idiopathic peripheral neuropath y 356.9 Active 697548040 Problem Other and unspecified hyperlipidemia 272.4 Active 62724087 Problem Altered mental status 780.97 Active 578566483 Problem Diabetes mellitus without me ntion of complication, type II or unspecified type, not stated as uncontrolled 250.00 Active 092135709 Problem Shortness of breath 786.05 Active 662804795 Problem Other malaise and fatigue 780.79 Acti ve 060746314 Problem Other chronic pain 338.29 Active 8 8288913 Problem Nondependent tobacco use disorder 305.1 Active 607660999 Problem Amphetamine and other psychostimulant de pendence, 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 9 and Shortness of breath R06.[address] [id number] [address] Aug, [facility] [address] [facility] [id number] [address] [place] [id number] Sep, [facility] [address] [facility] [id number] [address] [place] [id number] Sep, [facility] [address] [facility] [id number] [address] [place] [id number] Aug, [facility] [address] [facility] [id number] [address] [place] [id number] Aug, [facility] [address] [facility] [id number] [address] [place] [id number] Aug, [facility] [address] [facility] [id number] [address] [place] [id number] Aug, [facility] [address] [facility] [id number] [address] [place] [id number] Aug, [facility] [address] [facility] [id number] [address] [place] [id number] Aug, [facility] [address] [id number] [address] [place] [address], [place] [id number] Jul, [facility] [address] [id number] [address] [place] [address], [place] [id number] Jul, [facility] [address] [id number] [address] [place] [address], [place] [id number] Jul, [facility] [address] [id number] [address] [place] [address], [place] [id number] Jul, [facility] [address] [id number] [address] [place] [address], [place] [id number] Jul, [facility] [address] [id number] [address] [place] [address], [place] [id number] Jul, [facility] [address] [id number] [address] [place] [address], [place] [id number] Jul, [facility] [address] [id number] [address] [place] [address], [place] [id number] Jul, [facility] [address] [id number] [address] [place] [address], [place] [id number] Jul, [facility] [address] [id number] [address] [place] [address], [place] [id number] Jun, [facility] [address] [id number] [address] [place] [address], [place] [id number] Jun, [facility] [address] [id number] [address] [place] [address], [place] [id number] Jun, [facility] [address] [id number] [address] [place] [address], [place] [id number] Jun, [facility] [address] [id number] [address] [place] [address], [place] [id number] Jun, [facility] [address] [id number] [address] [place] [address], [place] [id number] Jun, [facility] [address] [id number] [address] [place] [address], [place] [id number] Jun, [facility] [address] [id number] [address] [place] [address], [place] [id number] Jun, [facility] [address] [id number] [address] [place] [address], [place] [id number] Jun, [facility] [address] [id number] [address] [place] [address], [place] [id number] Jun, [facility] [address] [id number] [address] [place] [address], [place] [id number] May, [facility] [address] [id number] [address] [place] [address], [place] [id number] May, [facility] [address] [id number] [address] [place] [address], [place] [id number] May, [facility] [address] [id number] [address] [place] [address], [place] [id number] May, [facility] [address] [id number] [address] [place] [address], [place] [id number] 29 May, 2014 [facility] [address] [id number] [address] [place] [address], [place] [id number] May, [facility] [address] [id number] [address] [place] [address], [place] [id number] May, [facility] [address] [id number] [address] [place] [address], [place] [id number] 18 May, 2014 [facility] [address] [id number] [address] [place] [address], [place] [id number] 18 May, 2014 [facility] [address] [id number] [address] [place] [address], [place] [id number] 15 May, 2014 [facility] [address] [id number] [address] [place] [address], [place] [id number] 15 May, 2014 [facility] [address] [id number] [address] [place] [address], [place] [id number] Apr, [facility] [address] [id number] [address] [place] [address], [place] [id number] Apr, [facility] [address] [id number] [address] [place] [address], [place] [id number] Apr, [facility] [address] [id number] [address] [place] [address], [place] [id number] Apr, [facility] [address] [id number] [address] [place] [address], [place] [id number] Mar, [facility] [address] [id number] [address] [place] [address], [place] [id number] Mar, [facility] [address] [id number] [address] [place] [address], [place] [id number] Mar, [facility] [address] [id number] [address] [place] [address], [place] [id number] Mar, [facility] [address] [id number] [address] [place] [address], [place] [id number] Feb, [facility] [address] [id number] [address] [place] [address], [place] [id number] 23 Feb, 2014 [facility] [address] [id number] [address] [place] [address], [place] [id number] 22 Feb, 2014 [facility] [address] [id number] [address] [place] [address], [place] [id number] 22 Feb, 2014 [facility] [address] [id number] [address] [place] [address], [place] [id number] 16 Feb, 2014 [facility] [address] [id number] [address] [place] [address], [place] [id number] 16 Feb, 2014 [facility] [address] [id number] [address] [place] [address], [place] [id number] Jan, [facility] [address] [id number] [address] [place] [address], [place] [id number] Jan, [facility] [address] [id number] [address] [place] [address], [place] [id number] Jan, [facility] [address] [id number] [address] [place] [address], [place] [id number] Jan, [facility] [address] [id number] [address] [place] [address], [place] [id number] Jan, [facility] [address] [id number] [address] [place] [address], [place] [id number] Jan, [facility] [address] [id number] [address] [place] [address], [place] [id number] Dec, [facility] [address] [id number] [address] [place] [address], [place] [id number] Dec, [facility] [address] [id number] [address] [place] [address], [place] [id number] Nov, [facility] [address] [id number] [address] [place] [address], [place] [id number] Nov, [facility] [address] [id number] [address] [place] [address], [place] [id number] Nov, [facility] [address] [id number] [address] [place] [address], [place] [id number] Nov, [facility] [address] [id number] [address] [place] [address], [place] [id number] Nov, [facility] [address] [id number] [address] [place] [address], [place] [id number] Nov, [facility] [address] [id number] [address] [place] [address], [place] [id number] Nov, [facility] [address] [id number] [address] [place] [address], [place] [id number] October, [facility] [address] [id number] [address] [place] [address], [place] [id number] October, [facility] [address] [id number] [address] [place] [address], [place] [id number] Sep, [facility] [address] [id number] [facility] [place] [id number] Sep, [facility] [address] [id number] [facility] [place] [id number] Sep, [facility] [address] [id number] [facility] [place] [id number] Sep, [facility] [address] [id number] [address] [place] [address], [place] [id number] 17 Sep, 2013 [facility] [address] [id number] [address] [place] [address], [place] [id number] 16 Sep, 2013 [facility] [address] [id number] [address] [place] [address], [place] [id number] Sep, [facility] [address] [id number] [address] [place] [address], [place] [id number] Sep, [facility] [address] [id number] [address] [place] [address], [place] [id number] Sep, [facility] [address] [id number] [address] [place] [address], [place] [id number] Sep, [facility] [address] [id number] [address] [place] [address], [place] [id number] Sep, [facility] [address] [id number] [address] [place] [address], [place] [id number] Sep, [facility] [address] [id number] [address] [place] [address], [place] [id number] Sep, [facility] [address] [id number] [address] [place] [address], [place] [id number] Sep, [facility] [address] [id number] [address] [place] [address], [place] [id number] 08 Sep, 2013 [facility] [address] [id number] [address] [place] [address], [place] [id number] 24 Aug, 2013 [facility] [address] [id number] [address] [place] [address], [place] [id number] Aug, [facility] [address] [id number] [facility] [id number] Aug, [facility] [address] [id number] [address] [place] [address], [place] [id number] Aug, [facility] [address] [id number] [facility] [place] [id number] Aug, [facility] [address] [id number] [address] [place] [address], [place] [id number] Aug, [facility] [address] [id number] [address] [place] [address], [place] [id number] Aug, [facility] [address] [id number] [address] [place] [address], [place] [id number] Aug, [facility] [address] [id number] [address] [place] [address], [place] [id number] Aug, [facility] [address] [id number] [address] [place] [address], [place] [id number] Aug, [facility] [address] [id number] [address] [place] [address], [place] [id number] Jun, [facility] [address] [id number] [address] [place] [address], [place] [id number] Jun, [facility] [address] [id number] [address] [place] [address], [place] [id number] Jun, [facility] [address] [id number] [address] [place] [address], [place] [id number] Jun, [facility] [address] [id number] [address] [place] [address], [place] [id number] Jun, [facility] [address] [id number] [address] [place] [address], [place] [id number] Jun, [facility] [address] [id number] [address] [place] [address], [place] [id number] Jun, [facility] [address] [id number] [address] [place] [address], [place] [id number] Jun, [facility] [address] [id number] [address] [place] [address], [place] [id number] Jun, [facility] [address] [id number] [address] [place] [address], [place] [id number] Jun, [facility] [address] [id number] [address] [place] [address], [place] [id number] Jun, [facility] [address] [id number] [address] [place] [address], [place] [id number] Jun, [facility] [address] [id number] [address] [place] [address], [place] [id number] Apr, [facility] [address] [id number] [address] [place] [address], [place] [id number] Apr, [facility] [address] [id number] [address] [place] [address], [place] [id number] Jan, [facility] [address] [id number] [address] [place] [address], [place] [id number] Jan, [facility] [address] [id number] [address] [place] [address], [place] [id number] Jan, [facility] [address] [id number] [address] [place] [address], [place] [id number] Jan, [facility] [address] [id number] [address] [place] [address], [place] [id number] Jan, [facility] [address] [id number] [address] [place] [address], [place] [id number] Jan, [facility] [address] [id number] [address] [place] [address], [place] [id number] Jan, [facility] [address] [place] [id number] Jan, [facility] [address] [id number] [address] [place] [address], [place] [id number] Dec, [facility] [address] [id number] [address] [place] [id number] 24 Dec, 2012 [facility] [address] [id number] [address] [place] [id number] Dec, [facility] [address] [id number] [address] [place] [id number] 17 Dec, 2012 [facility] [address] [id number] [address] [place] [id number] Dec, [facility] [address] [id number] [address] [place] [id number] Dec, [facility] [address] [id number] [address] [place] [id number] Dec, [facility] [address] [id number] [address] [place] [id number] Nov, [facility] [address] [id number] [address] [place] [id number] Nov, IMMUNIZATIONS No Known Immunizations SOCIAL HISTORY Never Assessed REASON FOR VISIT PLAN OF CARE VITAL SIGNS Height 62 in 2014-03-23 Weight 268 lbs 2014-03-23 Temperature 97.9 degrees Fahrenheit 2014-03-23 Heart Rate 88 bpm 2014-03-23 Respiratory Rate 20 2014-03-23 Blood pressure systolic 122 mmHg 2014-03-23 Blood pressure diastolic 68 mmHg 2014-03-23 MEDICATIONS No Known Medications RESULTS No Results PROCEDURES Procedure Date Ordered Result Body Site AUDIOMETRY-SCREEN Mar 23, 2014 INSTRUCTIONS MEDICATIONS ADMINISTERED No Known Medications
--- OUTSIDE RECORDS SUMMARY | 2019-10-21 19:13 | XMS REPORT ---
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 Active Problem Suicide and self-inflicted p oisoning by unspecified drug or medicinal substance E950.5 Active Problem Other dyspnea and respiratory abnormalities 786.09 Active 483820444 Problem Dysuria 788.1 Active 79954550 Problem Congestive heart failure, unspecified 428.0 Active 86238425 Problem Other screening breast examination V76.19 Active 24146652 Problem Unspecified hypotension 458.9 Active 84904000 Problem Other specified disorders of bladder 596.89 Active 59944158 Problem Encounter for long-term (current) use of other medications V58.69 Active 792516572 Problem Counseling on substance use and abuse V65.42 Active 418623889 Problem Unspecified myalgia and myositis 729.1 Active 068538574 Problem Pain in soft tissues of limb 729.5 A ctive 96769117 Problem Urinary tract infection, site not specified 599.0 Active 07417069 Problem Pain in joint, lower leg 719.46 Activ e 140521113 Problem Chronic airway obstruction, not elsewhere classified 496 Active 08970108 Problem Neurogenic bladder, NOS 596.54 Active 277889573 Problem Acute sinusitis, unspecified 461.9 A ctive 68707306 Problem Personal history of pulmonary embolism V12.55 Active 202768344 Problem Acute bronchitis 466.0 Active 105 12920 Problem Unspecified hearing loss 389.9 Activ e 91662928 Problem Unspecified otalgia 388.70 Active 74734372 Problem Unspecified hereditary and idiopathic peripheral neuropath y 356.9 Active 562382339 Problem Other and unspecified hyperlipidemia 272.4 Active 97873919 Problem Altered mental status 780.97 Active 013874695 Problem Diabetes mellitus without me ntion of complication, type II or unspecified type, not stated as uncontrolled 250.00 Active 562188280 Problem Shortness of breath 786.05 Active 494681384 Problem Other malaise and fatigue 780.79 Acti ve 789128557 Problem Other chronic pain 338.29 Active 8 4676359 Problem Nondependent tobacco use disorder 305.1 Active 901325053 Problem Amphetamine and other psychostimulant de pendence, 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 9 and Shortness of breath R06.[address] [id number] [address] Aug, [facility] [address] [facility] [id number] [address] [place] [phone] Sep, [facility] [address] [facility] [id number] [address] [place] [phone] Sep, [facility] [address] [facility] [id number] [address] [place] [id number] Aug, [facility] [address] [facility] [id number] [address] [place] [phone] Aug, [facility] [address] [facility] [id number] [address] [place] [id number] Aug, [facility] [address] [facility] [id number] [address] [place] [id number] Aug, [facility] [address] [facility] [id number] [address] [place] [phone] Aug, [facility] [address] [facility] [id number] [address] [place] [phone] Aug, [facility] [address] [id number] [address] [place] [address], [place] [address] Jul, [facility] [address] [id number] [address] [place] [address], [place] [address] Jul, [facility] [address] [id number] [address] [place] [address], [place] [address] Jul, [facility] [address] [id number] [address] [place] [address], [place] [address] Jul, [facility] [address] [id number] [address] [place] [address], [place] [address] Jul, [facility] [address] [id number] [address] [place] [address], [place] [address] Jul, [facility] [address] [id number] [address] [place] [address], [place] [address] Jul, [facility] [address] [id number] [address] [place] [address], [place] [address] Jul, [facility] [address] [id number] [address] [place] [address], [place] [address] Jul, [facility] [address] [id number] [address] [place] [address], [place] [address] Jun, [facility] [address] [id number] [address] [place] [address], [place] [address] Jun, [facility] [address] [id number] [address] [place] [address], [place] [address] Jun, [facility] [address] [id number] [address] [place] [address], [place] [address] Jun, [facility] [address] [id number] [address] [place] [address], [place] [address] Jun, [facility] [address] [id number] [address] [place] [address], [place] [address] Jun, [facility] [address] [id number] [address] [place] [address], [place] [address] Jun, [facility] [address] [id number] [address] [place] [address], [place] [address] Jun, [facility] [address] [id number] [address] [place] [address], [place] [address] Jun, [facility] [address] [id number] [address] [place] [address], [place] [address] Jun, [facility] [address] [id number] [address] [place] [address], [place] [address] May, [facility] [address] [id number] [address] [place] [address], [place] [address] May, [facility] [address] [id number] [address] [place] [address], [place] [address] May, [facility] [address] [id number] [address] [place] [address], [place] [address] May, [facility] [address] [id number] [address] [place] [address], [place] [address] 29 May, 2014 [facility] [address] [id number] [address] [place] [address], [place] [address] May, [facility] [address] [id number] [address] [place] [address], [place] [address] May, [facility] [address] [id number] [address] [place] [address], [place] [address] 18 May, 2014 [facility] [address] [id number] [address] [place] [address], [place] [address] 18 May, 2014 [facility] [address] [id number] [address] [place] [address], [place] [address] 15 May, 2014 [facility] [address] [id number] [address] [place] [address], [place] [address] 15 May, 2014 [facility] [address] [id number] [address] [place] [address], [place] [address] Apr, [facility] [address] [id number] [address] [place] [address], [place] [address] Apr, [facility] [address] [id number] [address] [place] [address], [place] [address] Apr, [facility] [address] [id number] [address] [place] [address], [place] [address] Apr, [facility] [address] [id number] [address] [place] [address], [place] [address] Mar, [facility] [address] [id number] [address] [place] [address], [place] [address] Mar, [facility] [address] [id number] [address] [place] [address], [place] [address] Mar, [facility] [address] [id number] [address] [place] [address], [place] [address] Mar, [facility] [address] [id number] [address] [place] [address], [place] [address] Feb, [facility] [address] [id number] [address] [place] [address], [place] [address] 23 Feb, 2014 [facility] [address] [id number] [address] [place] [address], [place] [address] 22 Feb, 2014 [facility] [address] [id number] [address] [place] [address], [place] [address] 22 Feb, 2014 [facility] [address] [id number] [address] [place] [address], [place] [address] 16 Feb, 2014 [facility] [address] [id number] [address] [place] [address], [place] [address] 16 Feb, 2014 [facility] [address] [id number] [address] [place] [address], [place] [address] Jan, [facility] [address] [id number] [address] [place] [address], [place] [address] Jan, [facility] [address] [id number] [address] [place] [address], [place] [address] Jan, [facility] [address] [id number] [address] [place] [address], [place] [address] Jan, [facility] [address] [id number] [address] [place] [address], [place] [address] Jan, [facility] [address] [id number] [address] [place] [address], [place] [address] Jan, [facility] [address] [id number] [address] [place] [address], [place] [address] Dec, [facility] [address] [id number] [address] [place] [address], [place] [address] Dec, [facility] [address] [id number] [address] [place] [address], [place] [address] Nov, [facility] [address] [id number] [address] [place] [address], [place] [address] Nov, [facility] [address] [id number] [address] [place] [address], [place] [address] Nov, [facility] [address] [id number] [address] [place] [address], [place] [address] Nov, [facility] [address] [id number] [address] [place] [address], [place] [address] Nov, [facility] [address] [id number] [address] [place] [address], [place] [address] Nov, [facility] [address] [id number] [address] [place] [address], [place] [address] Nov, [facility] [address] [id number] [address] [place] [address], [place] [address] October, [facility] [address] [id number] [address] [place] [address], [place] [address] October, [facility] [address] [id number] [address] [place] [address], [place] [address] Sep, [facility] [address] [id number] [facility] [place] [address] Sep, [facility] [address] [id number] [facility] [place] [address] Sep, [facility] [address] [id number] [facility] [place] [address] Sep, [facility] [address] [id number] [address] [place] [address], [place] [address] 17 Sep, 2013 [facility] [address] [id number] [address] [place] [address], [place] [address] 16 Sep, 2013 [facility] [address] [id number] [address] [place] [address], [place] [address] Sep, [facility] [address] [id number] [address] [place] [address], [place] [address] Sep, [facility] [address] [id number] [address] [place] [address], [place] [address] Sep, [facility] [address] [id number] [address] [place] [address], [place] [address] Sep, [facility] [address] [id number] [address] [place] [address], [place] [address] Sep, [facility] [address] [id number] [address] [place] [address], [place] [address] Sep, [facility] [address] [id number] [address] [place] [address], [place] [address] Sep, [facility] [address] [id number] [address] [place] [address], [place] [address] Sep, [facility] [address] [id number] [address] [place] [address], [place] [address] 08 Sep, 2013 [facility] [address] [id number] [address] [place] [address], [place] [address] 24 Aug, 2013 [facility] [address] [id number] [address] [place] [address], [place] [address] Aug, [facility] [address] [id number] [facility] [place] [address] Aug, [facility] [address] [id number] [address] [place] [address], [place] [address] Aug, [facility] [address] [id number] [facility] [place] [address] Aug, [facility] [address] [id number] [address] [place] [address], [place] [address] Aug, [facility] [address] [id number] [address] [place] [address], [place] [address] Aug, [facility] [address] [id number] [address] [place] [address], [place] [address] Aug, [facility] [address] [id number] [address] [place] [address], [place] [address] Aug, [facility] [address] [id number] [address] [place] [address], [place] [address] Aug, [facility] [address] [id number] [address] [place] [address], [place] [address] Jun, [facility] [address] [id number] [address] [place] [address], [place] [address] Jun, [facility] [address] [id number] [address] [place] [address], [place] [address] Jun, [facility] [address] [id number] [address] [place] [address], [place] [address] Jun, [facility] [address] [id number] [address] [place] [address], [place] [address] Jun, [facility] [address] [id number] [address] [place] [address], [place] [address] Jun, [facility] [address] [id number] [address] [place] [address], [place] [address] Jun, [facility] [address] [id number] [address] [place] [address], [place] [address] Jun, [facility] [address] [id number] [address] [place] [address], [place] [address] Jun, [facility] [address] [id number] [address] [place] [address], [place] [address] Jun, [facility] [address] [id number] [address] [place] [address], [place] [address] Jun, [facility] [address] [id number] [address] [place] [address], [place] [address] Jun, [facility] [address] [id number] [address] [place] [address], [place] [address] Apr, [facility] [address] [id number] [address] [place] [address], [place] [address] Apr, [facility] [address] [id number] [address] [place] [address], [place] [address] Jan, [facility] [address] [id number] [address] [place] [address], [place] [address] Jan, [facility] [address] [id number] [address] [place] [address], [place] [address] Jan, [facility] [address] [id number] [address] [place] [address], [place] [address] Jan, [facility] [address] [id number] [address] [place] [address], [place] [address] Jan, [facility] [address] [id number] [address] [place] [address], [place] [address] Jan, [facility] [address] [id number] [address] [place] [address], [place] [address] Jan, [facility] [address] [place] [id number] Jan, [facility] [address] [id number] [address] [place] [address], [place] [address] Dec, [facility] [address] [id number] [address] [place] [address] Dec, [facility] [address] [id number] [address] [place] [phone] Dec, [facility] [address] [id number] [address] [place] [id number] Dec, [facility] [address] [id number] [address] [place] [address] Dec, [facility] [address] [id number] [address] [place] [id number] Dec, [facility] [address] [id number] [address] [place] [address] Dec, [facility] [address] [id number] [address] [place] [id number] Nov, [facility] [address] [id number] [address] [place] [phone] Nov, IMMUNIZATIONS No Known Immunizations SOCIAL HISTORY Never Assessed REASON FOR VISIT PLAN OF CARE VITAL SIGNS MEDICATIONS No Known Medications RESULTS No Results PROCEDURES No Known procedures INSTRUCTIONS MEDICATIONS ADMINISTERED No Known Medications
--- OUTSIDE RECORDS SUMMARY | 2019-10-21 19:13 | XMS REPORT ---
Author Author Ayden Payne Doctor Organization [facility] Address Unknown Phone Unavailable Care Team Providers Care Acid Filler Name Role Phone Migration, Doctor Unavailable Unavailable PROBLEMS Type Condition ICD9-CM Code [id number] Code Onset Dates Condition S tatus SNOMED Code Problem Personal history of fall V15.88 Activ e 562420577 Problem Routine general medical examination at 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 Active Problem Suicide and self-inflicted p oisoning by unspecified drug or medicinal substance E950.5 Active Problem Other dyspnea and respiratory abnormalities 786.09 Active 734647557 Problem Dysuria 788.1 Active 05432618 Problem Congestive heart failure, unspecified 428.0 Active 97436134 Problem Other screening breast examination V76.19 Active 36745531 Problem Unspecified hypotension 458.9 Active 64816221 Problem Other specified disorders of bladder 596.89 Active 46027805 Problem Encounter for long-term (current) use of other medications V58.69 Active 061118389 Problem Counseling on substance use and abuse V65.42 Active 558668464 Problem Unspecified myalgia and myositis 729.1 Active 651192669 Problem Pain in soft tissues of limb 729.5 A ctive 53089495 Problem Urinary tract infection, site not specified 599.0 Active 88669844 Problem Pain in joint, lower leg 719.46 Activ e 516513671 Problem Chronic airway obstruction, not elsewhere classified 496 Active 96137810 Problem Neurogenic bladder, NOS 596.54 Active 883059282 Problem Acute sinusitis, unspecified 461.9 A ctive 98018749 Problem Personal history of pulmonary embolism V12.55 Active 078961076 Problem Acute bronchitis 466.0 Active 105 51236 Problem Unspecified hearing loss 389.9 Activ e 32372142 Problem Unspecified otalgia 388.70 Active 65831815 Problem Unspecified hereditary and idiopathic peripheral neuropath y 356.9 Active 806886622 Problem Other and unspecified hyperlipidemia 272.4 Active 46784412 Problem Altered mental status 780.97 Active 702410329 Problem Diabetes mellitus without me ntion of complication, type II or unspecified type, not stated as uncontrolled 250.00 Active 263003291 Problem Shortness of breath 786.05 Active 944755144 Problem Other malaise and fatigue 780.79 Acti ve 201440783 Problem Other chronic pain 338.29 Active 8 1603543 Problem Nondependent tobacco use disorder 305.1 Active 700663893 Problem Amphetamine and other psychostimulant de pendence, 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 9 and Shortness of breath R06.[address] [id number] [address] Aug, [facility] [address] [facility] [id number] [address] [place] [address] Sep, [facility] [address] [facility] [id number] [address] [place] [address] Sep, [facility] [address] [facility] [id number] [address] [place] [address] Aug, [facility] [address] [facility] [id number] [address] [place] [address] Aug, [facility] [address] [facility] [id number] [address] [place] [address] Aug, [facility] [address] [facility] [id number] [address] [place] [address] Aug, [facility] [address] [facility] [id number] [address] [place] [address] Aug, [facility] [address] [facility] [id number] [address] [place] [address] Aug, [facility] [address] [id number] [address] [place] [address], [place] [address] Jul, [facility] [address] [id number] [address] [place] [address], [place] [address] Jul, [facility] [address] [id number] [address] [place] [address], [place] [address] Jul, [facility] [address] [id number] [address] [place] [address], [place] [address] Jul, [facility] [address] [id number] [address] [place] [address], [place] [address] Jul, [facility] [address] [id number] [address] [place] [address], [place] [address] Jul, [facility] [address] [id number] [address] [place] [address], [place] [address] Jul, [facility] [address] [id number] [address] [place] [address], [place] [address] Jul, [facility] [address] [id number] [address] [place] [address], [place] [address] Jul, [facility] [address] [id number] [address] [place] [address], [place] [address] Jun, [facility] [address] [id number] [address] [place] [address], [place] [address] Jun, [facility] [address] [id number] [address] [place] [address], [place] [address] Jun, [facility] [address] [id number] [address] [place] [address], [place] [address] Jun, [facility] [address] [id number] [address] [place] [address], [place] [address] Jun, [facility] [address] [id number] [address] [place] [address], [place] [address] Jun, [facility] [address] [id number] [address] [place] [address], [place] [address] Jun, [facility] [address] [id number] [address] [place] [address], [place] [address] Jun, [facility] [address] [id number] [address] [place] [address], [place] [address] Jun, [facility] [address] [id number] [address] [place] [address], [place] [address] Jun, [facility] [address] [id number] [address] [place] [address], [place] [address] May, [facility] [address] [id number] [address] [place] [address], [place] [address] May, [facility] [address] [id number] [address] [place] [address], [place] [address] May, [facility] [address] [id number] [address] [place] [address], [place] [address] May, [facility] [address] [id number] [address] [place] [address], [place] [address] 29 May, 2014 [facility] [address] [id number] [address] [place] [address], [place] [address] May, [facility] [address] [id number] [address] [place] [address], [place] [address] May, [facility] [address] [id number] [address] [place] [address], [place] [address] 18 May, 2014 [facility] [address] [id number] [address] [place] [address], [place] [address] 18 May, 2014 [facility] [address] [id number] [address] [place] [address], [place] [address] 15 May, 2014 [facility] [address] [id number] [address] [place] [address], [place] [address] 15 May, 2014 [facility] [address] [id number] [address] [place] [address], [place] [address] Apr, [facility] [address] [id number] [address] [place] [address], [place] [address] Apr, [facility] [address] [id number] [address] [place] [address], [place] [address] Apr, [facility] [address] [id number] [address] [place] [address], [place] [address] Apr, [facility] [address] [id number] [address] [place] [address], [place] [address] Mar, [facility] [address] [id number] [address] [place] [address], [place] [address] Mar, [facility] [address] [id number] [address] [place] [address], [place] [address] Mar, [facility] [address] [id number] [address] [place] [address], [place] [address] Mar, [facility] [address] [id number] [address] [place] [address], [place] [address] Feb, [facility] [address] [id number] [address] [place] [address], [place] [address] 23 Feb, 2014 [facility] [address] [id number] [address] [place] [address], [place] [address] 22 Feb, 2014 [facility] [address] [id number] [address] [place] [address], [place] [address] 22 Feb, 2014 [facility] [address] [id number] [address] [place] [address], [place] [address] 16 Feb, 2014 [facility] [address] [id number] [address] [place] [address], [place] [address] 16 Feb, 2014 [facility] [address] [id number] [address] [place] [address], [place] [address] Jan, [facility] [address] [id number] [address] [place] [address], [place] [address] Jan, [facility] [address] [id number] [address] [place] [address], [place] [address] Jan, [facility] [address] [id number] [address] [place] [address], [place] [address] Jan, [facility] [address] [id number] [address] [place] [address], [place] [address] Jan, [facility] [address] [id number] [address] [place] [address], [place] [address] Jan, [facility] [address] [id number] [address] [place] [address], [place] [address] Dec, [facility] [address] [id number] [address] [place] [address], [place] [address] Dec, [facility] [address] [id number] [address] [place] [address], [place] [address] Nov, [facility] [address] [id number] [address] [place] [address], [place] [address] Nov, [facility] [address] [id number] [address] [place] [address], [place] [address] Nov, [facility] [address] [id number] [address] [place] [address], [place] [address] Nov, [facility] [address] [id number] [address] [place] [address], [place] [address] Nov, [facility] [address] [id number] [address] [place] [address], [place] [address] Nov, [facility] [address] [id number] [address] [place] [address], [place] [address] Nov, [facility] [address] [id number] [address] [place] [address], [place] [address] October, [facility] [address] [id number] [address] [place] [address], [place] [address] October, [facility] [address] [id number] [address] [place] [address], [place] [address] Sep, [facility] [address] [id number] [facility] [place] [address] Sep, [facility] [address] [id number] [facility] [place] [address] Sep, [facility] [address] [id number] [facility] [place] [address] Sep, [facility] [address] [id number] [address] [place] [address], [place] [address] 17 Sep, 2013 [facility] [address] [id number] [address] [place] [address], [place] [address] 16 Sep, 2013 [facility] [address] [id number] [address] [place] [address], [place] [address] Sep, [facility] [address] [id number] [address] [place] [address], [place] [address] Sep, [facility] [address] [id number] [address] [place] [address], [place] [address] Sep, [facility] [address] [id number] [address] [place] [address], [place] [address] Sep, [facility] [address] [id number] [address] [place] [address], [place] [address] Sep, [facility] [address] [id number] [address] [place] [address], [place] [address] Sep, [facility] [address] [id number] [address] [place] [address], [place] [address] Sep, [facility] [address] [id number] [address] [place] [address], [place] [address] Sep, [facility] [address] [id number] [address] [place] [address], [place] [address] 08 Sep, 2013 [facility] [address] [id number] [address] [place] [address], [place] [address] 24 Aug, 2013 [facility] [address] [id number] [address] [place] [address], [place] [address] Aug, [facility] [address] [id number] [facility] [place] [address] Aug, [facility] [address] [id number] [address] [place] [address], [place] [address] Aug, [facility] [address] [id number] [facility] [place] [address] Aug, [facility] [address] [id number] [address] [place] [address], [place] [address] Aug, [facility] [address] [id number] [address] [place] [address], [place] [address] Aug, [facility] [address] [id number] [address] [place] [address], [place] [address] Aug, [facility] [address] [id number] [address] [place] [address], [place] [address] Aug, [facility] [address] [id number] [address] [place] [address], [place] [address] Aug, [facility] [address] [id number] [address] [place] [address], [place] [address] Jun, [facility] [address] [id number] [address] [place] [address], [place] [address] Jun, [facility] [address] [id number] [address] [place] [address], [place] [address] Jun, [facility] [address] [id number] [address] [place] [address], [place] [address] Jun, [facility] [address] [id number] [address] [place] [address], [place] [address] Jun, [facility] [address] [id number] [address] [place] [address], [place] [address] Jun, [facility] [address] [id number] [address] [place] [address], [place] [address] Jun, [facility] [address] [id number] [address] [place] [address], [place] [address] Jun, [facility] [address] [id number] [address] [place] [address], [place] [address] Jun, [facility] [address] [id number] [address] [place] [address], [place] [address] Jun, [facility] [address] [id number] [address] [place] [address], [place] [address] Jun, [facility] [address] [id number] [address] [place] [address], [place] [address] Jun, [facility] [address] [id number] [address] [place] [address], [place] [address] Apr, [facility] [address] [id number] [address] [place] [address], [place] [address] Apr, [facility] [address] [id number] [address] [place] [address], [place] [address] Jan, [facility] [address] [id number] [address] [place] [address], [place] [address] Jan, [facility] [address] [id number] [address] [place] [address], [place] [address] Jan, [facility] [address] [id number] [address] [place] [address], [place] [address] Jan, [facility] [address] [id number] [address] [place] [address], [place] [address] Jan, [facility] [address] [id number] [address] [place] [address], [place] [address] Jan, [facility] [address] [id number] [address] [place] [address], [place] [address] Jan, [facility] [address] [place] [id number] Jan, [facility] [address] [id number] [address] [place] [address], [place] [address] Dec, [facility] [address] [id number] [address] [place] [address] Dec, [facility] [address] [id number] [address] [place] [address] Dec, [facility] [address] [id number] [address] [place] [address] Dec, [facility] [address] [id number] [address] [place] [address] Dec, [facility] [address] [id number] [address] [place] [address] Dec, [facility] [address] [id number] [address] [place] [address] Dec, [facility] [address] [id number] [address] [place] [address] Nov, [facility] [address] [id number] [address] [place] [address] Nov, IMMUNIZATIONS No Known Immunizations SOCIAL HISTORY Never Assessed REASON FOR VISIT PLAN OF CARE VITAL SIGNS MEDICATIONS No Known Medications RESULTS No Results PROCEDURES No Known procedures INSTRUCTIONS MEDICATIONS ADMINISTERED No Known Medications
--- OUTSIDE RECORDS SUMMARY | 2019-10-21 19:13 | XMS REPORT ---
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 Active Problem Suicide and self-inflicted p oisoning by unspecified drug or medicinal substance E950.5 Active Problem Other dyspnea and respiratory abnormalities 786.09 Active 221931580 Problem Dysuria 788.1 Active 11773922 Problem Congestive heart failure, unspecified 428.0 Active 56962782 Problem Other screening breast examination V76.19 Active 51437242 Problem Unspecified hypotension 458.9 Active 10724777 Problem Other specified disorders of bladder 596.89 Active 87330589 Problem Encounter for long-term (current) use of other medications V58.69 Active 644585328 Problem Counseling on substance use and abuse V65.42 Active 797539046 Problem Unspecified myalgia and myositis 729.1 Active 561613700 Problem Pain in soft tissues of limb 729.5 A ctive 20119339 Problem Urinary tract infection, site not specified 599.0 Active 96341691 Problem Pain in joint, lower leg 719.46 Activ e 485040898 Problem Chronic airway obstruction, not elsewhere classified 496 Active 02169073 Problem Neurogenic bladder, NOS 596.54 Active 419894088 Problem Acute sinusitis, unspecified 461.9 A ctive 39384361 Problem Personal history of pulmonary embolism V12.55 Active 821874937 Problem Acute bronchitis 466.0 Active 105 44573 Problem Unspecified hearing loss 389.9 Activ e 32812575 Problem Unspecified otalgia 388.70 Active 05007783 Problem Unspecified hereditary and idiopathic peripheral neuropath y 356.9 Active 593612602 Problem Other and unspecified hyperlipidemia 272.4 Active 76791357 Problem Altered mental status 780.97 Active 630901408 Problem Diabetes mellitus without me ntion of complication, type II or unspecified type, not stated as uncontrolled 250.00 Active 859319969 Problem Shortness of breath 786.05 Active 821356578 Problem Other malaise and fatigue 780.79 Acti ve 106765252 Problem Other chronic pain 338.29 Active 8 8684425 Problem Nondependent tobacco use disorder 305.1 Active 614719799 Problem Amphetamine and other psychostimulant de pendence, 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 9 and Shortness of breath R06.[address] [id number] [address] Aug, [facility] [address] [facility] [id number] [address] [place] [address] Sep, [facility] [address] [facility] [id number] [address] [place] [address] Sep, [facility] [address] [facility] [id number] [address] [place] [address] Aug, [facility] [address] [facility] [id number] [address] [place] [address] Aug, [facility] [address] [facility] [id number] [address] [place] [address] Aug, [facility] [address] [facility] [id number] [address] [place] [address] Aug, [facility] [address] [facility] [id number] [address] [place] [address] Aug, [facility] [address] [facility] [id number] [address] [place] [address] Aug, [facility] [address] [id number] [address] [place] [address], [place] [address] Jul, [facility] [address] [id number] [address] [place] [address], [place] [address] Jul, [facility] [address] [id number] [address] [place] [address], [place] [address] Jul, [facility] [address] [id number] [address] [place] [address], [place] [address] Jul, [facility] [address] [id number] [address] [place] [address], [place] [address] Jul, [facility] [address] [id number] [address] [place] [address], [place] [address] Jul, [facility] [address] [id number] [address] [place] [address], [place] [address] Jul, [facility] [address] [id number] [address] [place] [address], [place] [address] Jul, [facility] [address] [id number] [address] [place] [address], [place] [address] Jul, [facility] [address] [id number] [address] [place] [address], [place] [address] Jun, [facility] [address] [id number] [address] [place] [address], [place] [address] Jun, [facility] [address] [id number] [address] [place] [address], [place] [address] Jun, [facility] [address] [id number] [address] [place] [address], [place] [address] Jun, [facility] [address] [id number] [address] [place] [address], [place] [address] Jun, [facility] [address] [id number] [address] [place] [address], [place] [address] Jun, [facility] [address] [id number] [address] [place] [address], [place] [address] Jun, [facility] [address] [id number] [address] [place] [address], [place] [address] Jun, [facility] [address] [id number] [address] [place] [address], [place] [address] Jun, [facility] [address] [id number] [address] [place] [address], [place] [address] Jun, [facility] [address] [id number] [address] [place] [address], [place] [address] May, [facility] [address] [id number] [address] [place] [address], [place] [address] May, [facility] [address] [id number] [address] [place] [address], [place] [address] May, [facility] [address] [id number] [address] [place] [address], [place] [address] May, [facility] [address] [id number] [address] [place] [address], [place] [address] 29 May, 2014 [facility] [address] [id number] [address] [place] [address], [place] [address] May, [facility] [address] [id number] [address] [place] [address], [place] [address] May, [facility] [address] [id number] [address] [place] [address], [place] [address] 18 May, 2014 [facility] [address] [id number] [address] [place] [address], [place] [address] 18 May, 2014 [facility] [address] [id number] [address] [place] [address], [place] [address] 15 May, 2014 [facility] [address] [id number] [address] [place] [address], [place] [address] 15 May, 2014 [facility] [address] [id number] [address] [place] [address], [place] [address] Apr, [facility] [address] [id number] [address] [place] [address], [place] [address] Apr, [facility] [address] [id number] [address] [place] [address], [place] [address] Apr, [facility] [address] [id number] [address] [place] [address], [place] [address] Apr, [facility] [address] [id number] [address] [place] [address], [place] [address] Mar, [facility] [address] [id number] [address] [place] [address], [place] [address] Mar, [facility] [address] [id number] [address] [place] [address], [place] [address] Mar, [facility] [address] [id number] [address] [place] [address], [place] [address] Mar, [facility] [address] [id number] [address] [place] [address], [place] [address] Feb, [facility] [address] [id number] [address] [place] [address], [place] [address] 23 Feb, 2014 [facility] [address] [id number] [address] [place] [address], [place] [address] 22 Feb, 2014 [facility] [address] [id number] [address] [place] [address], [place] [address] 22 Feb, 2014 [facility] [address] [id number] [address] [place] [address], [place] [address] 16 Feb, 2014 [facility] [address] [id number] [address] [place] [address], [place] [address] 16 Feb, 2014 [facility] [address] [id number] [address] [place] [address], [place] [address] Jan, [facility] [address] [id number] [address] [place] [address], [place] [address] Jan, [facility] [address] [id number] [address] [place] [address], [place] [address] Jan, [facility] [address] [id number] [address] [place] [address], [place] [address] Jan, [facility] [address] [id number] [address] [place] [address], [place] [address] Jan, [facility] [address] [id number] [address] [place] [address], [place] [address] Jan, [facility] [address] [id number] [address] [place] [address], [place] [address] Dec, [facility] [address] [id number] [address] [place] [address], [place] [address] Dec, [facility] [address] [id number] [address] [place] [address], [place] [address] Nov, [facility] [address] [id number] [address] [place] [address], [place] [address] Nov, [facility] [address] [id number] [address] [place] [address], [place] [address] Nov, [facility] [address] [id number] [address] [place] [address], [place] [address] Nov, [facility] [address] [id number] [address] [place] [address], [place] [address] Nov, [facility] [address] [id number] [address] [place] [address], [place] [address] Nov, [facility] [address] [id number] [address] [place] [address], [place] [address] Nov, [facility] [address] [id number] [address] [place] [address], [place] [address] October, [facility] [address] [id number] [address] [place] [address], [place] [address] October, [facility] [address] [id number] [address] [place] [address], [place] [address] Sep, [facility] [address] [id number] [facility] [place] [address] Sep, [facility] [address] [id number] [facility] [place] [address] Sep, [facility] [address] [id number] [facility] [place] [address] Sep, [facility] [address] [id number] [address] [place] [address], [place] [address] 17 Sep, 2013 [facility] [address] [id number] [address] [place] [address], [place] [address] 16 Sep, 2013 [facility] [address] [id number] [address] [place] [address], [place] [address] Sep, [facility] [address] [id number] [address] [place] [address], [place] [address] Sep, [facility] [address] [id number] [address] [place] [address], [place] [address] Sep, [facility] [address] [id number] [address] [place] [address], [place] [address] Sep, [facility] [address] [id number] [address] [place] [address], [place] [address] Sep, [facility] [address] [id number] [address] [place] [address], [place] [address] Sep, [facility] [address] [id number] [address] [place] [address], [place] [address] Sep, [facility] [address] [id number] [address] [place] [address], [place] [address] Sep, [facility] [address] [id number] [address] [place] [address], [place] [address] 08 Sep, 2013 [facility] [address] [id number] [address] [place] [address], [place] [address] 24 Aug, 2013 [facility] [address] [id number] [address] [place] [address], [place] [address] Aug, [facility] [address] [id number] [facility] [place] [address] Aug, [facility] [address] [id number] [address] [place] [address], [place] [address] Aug, [facility] [address] [id number] [facility] [place] [address] Aug, [facility] [address] [id number] [address] [place] [address], [place] [address] Aug, [facility] [address] [id number] [address] [place] [address], [place] [address] Aug, [facility] [address] [id number] [address] [place] [address], [place] [address] Aug, [facility] [address] [id number] [address] [place] [address], [place] [address] Aug, [facility] [address] [id number] [address] [place] [address], [place] [address] Aug, [facility] [address] [id number] [address] [place] [address], [place] [address] Jun, [facility] [address] [id number] [address] [place] [address], [place] [address] Jun, [facility] [address] [id number] [address] [place] [address], [place] [address] Jun, [facility] [address] [id number] [address] [place] [address], [place] [address] Jun, [facility] [address] [id number] [address] [place] [address], [place] [address] Jun, [facility] [address] [id number] [address] [place] [address], [place] [address] Jun, [facility] [address] [id number] [address] [place] [address], [place] [address] Jun, [facility] [address] [id number] [address] [place] [address], [place] [address] Jun, [facility] [address] [id number] [address] [place] [address], [place] [address] Jun, [facility] [address] [id number] [address] [place] [address], [place] [address] Jun, [facility] [address] [id number] [address] [place] [address], [place] [address] Jun, [facility] [address] [id number] [address] [place] [address], [place] [address] Jun, [facility] [address] [id number] [address] [place] [address], [place] [address] Apr, [facility] [address] [id number] [address] [place] [address], [place] [address] Apr, [facility] [address] [id number] [address] [place] [address], [place] [address] Jan, [facility] [address] [id number] [address] [place] [address], [place] [address] Jan, [facility] [address] [id number] [address] [place] [address], [place] [address] Jan, [facility] [address] [id number] [address] [place] [address], [place] [address] Jan, [facility] [address] [id number] [address] [place] [address], [place] [address] Jan, [facility] [address] [id number] [address] [place] [address], [place] [address] Jan, [facility] [address] [id number] [address] [place] [address], [place] [address] Jan, [facility] [address] [place] [id number] Jan, [facility] [address] [id number] [address] [place] [address], [place] [address] Dec, [facility] [address] [id number] [address] [place] [id number] 24 Dec, 2012 [facility] [address] [id number] [address] [place] [address] Dec, [facility] [address] [id number] [address] [place] [id number] 17 Dec, 2012 [facility] [address] [id number] [address] [place] [address] Dec, [facility] [address] [id number] [address] [place] [address] 15 Dec, 2012 [facility] [address] [id number] [address] [place] [id number] Dec, [facility] [address] [id number] [address] [place] [id number] Nov, [facility] [address] [id number] [address] [place] [id number] Nov, IMMUNIZATIONS No Known Immunizations SOCIAL HISTORY Never Assessed REASON FOR VISIT PLAN OF CARE VITAL SIGNS Height 62 in 2013-06-27 Weight 298.9 lbs 2013-06-27 Temperature 98.6 degrees Fahrenheit 2013-06-27 Heart Rate 100 bpm 2013-06-27 Respiratory Rate 24 2013-06-27 Blood pressure systolic 128 mmHg 2013-06-27 Blood pressure diastolic 80 mmHg 2013-06-27 MEDICATIONS No Known Medications RESULTS No Results PROCEDURES Procedure Date Ordered Result Body Site MEASURE BLOOD OXYGEN LEVEL Jun 27, 2013 PROTHROMBIN TIME Jun 27, 2013 MICROALBUMIN, SEMIQUANT Jun 27, 2013 MICROALBUMIN, QUANTITATIVE Jun 27, 2013 DRUG SCREEN, QUALITATE/MULTI Jun 27, 2013 LIPID PANEL Jun 27, 2013 COMPREHEN METABOLIC PANEL Jun 27, 2013 VENIPUNCT, ROUTINE* Jun 27, 2013 INSTRUCTIONS MEDICATIONS ADMINISTERED No Known Medications
--- OUTSIDE RECORDS SUMMARY | 2019-10-21 19:14 | XMS REPORT ---
Author Author Ayden ZARAGOZA 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 Role Phone TC CAAL[place] Unavailable PROBLEMS Type Condition ICD9-CM Code GCU20-EN Code Onset Dates Condition S tatus SNOMED Code Problem Personal history of fall V15.88 Activ e 660280529 Problem Routine general medical examination at [facility] facilit V70.0 Active 140001277 Problem Personal history of venous thrombosis and embolism V12.51 Active 212584495 Problem Status of other artificial opening of urinary tract V44.6 Active Problem Suicide and self-inflicted p oisoning by unspecified drug or medicinal substance E950.5 Active Problem Other dyspnea and respiratory abnormalities 786.09 Active 126759889 Problem Dysuria 788.1 Active 63627286 Problem Congestive heart failure, unspecified 428.0 Active 25503864 Problem Other screening breast examination V76.19 Active 19502720 Problem Unspecified hypotension 458.9 Active 79090774 Problem Other specified disorders of bladder 596.89 Active 38654898 Problem Encounter for long-term (current) use of other medications V58.69 Active 482936813 Problem Counseling on substance use and abuse V65.42 Active 138381472 Problem Unspecified myalgia and myositis 729.1 Active 843209957 Problem Pain in soft tissues of limb 729.5 A ctive 32198445 Problem Urinary tract infection, site not specified 599.0 Active 32731149 Problem Pain in joint, lower leg 719.46 Activ e 010653354 Problem Chronic airway obstruction, not elsewhere classified 496 Active 35095619 Problem Neurogenic bladder, NOS 596.54 Active 917466269 Problem Acute sinusitis, unspecified 461.9 A ctive 80847851 Problem Personal history of pulmonary embolism V12.55 Active 914308968 Problem Acute bronchitis 466.0 Active 105 16295 Problem Unspecified hearing loss 389.9 Activ e 30318153 Problem Unspecified otalgia 388.70 Active 49987248 Problem Unspecified hereditary and idiopathic peripheral neuropath y 356.9 Active 337914285 Problem Other and unspecified hyperlipidemia 272.4 Active 38099248 Problem Altered mental status 780.97 Active 893050553 Problem Diabetes mellitus without me ntion of complication, type II or unspecified type, not stated as uncontrolled 250.00 Active 137985613 Problem Shortness of breath 786.05 Active 177433119 Problem Other malaise and fatigue 780.79 Acti ve 278706353 Problem Other chronic pain 338.29 Active 8 3703903 Problem Nondependent tobacco use disorder 305.1 Active 728788508 Problem Amphetamine and other psychostimulant de pendence, 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 Active Problem Obesity, unspecified 278.00 Active 195944632 ALLERGIES No Information ENCOUNTERS Encounter Location Date Diagnosis [facility] [address] [address] Sep, [facility] [address] [address] Sep, [facility] [address] [address] Aug, [facility] [address] [address] Aug, [facility] [address] [address] Aug, [facility] [address] [address] Aug, [facility] [address] [address] Aug, [facility] [address] [address] Aug, [facility] [address] [address] Jul, [facility] [address] [address] Jul, [facility] [place] [facility] [address] [facility] [id number] [facility] [place] [address] Jul, [facility] [place] [facility] [address] [id number] [place] [address] Jul, [facility] [place] [facility] [address] [id number] [place] [address] Jul, [facility] [place] [facility] [address] [id number] [place] [address] Jul, [facility] [place] [facility] [address] [facility] [id number] [place] [address] Jul, [facility] [place] [facility] [address] [id number] [place] [address] Jul, [facility] [place] [facility] [address] [id number] [place] [address] Jul, [facility] [place] [facility] [address] [id number] [place] [address] Jun, [facility] [place] [facility] [address] [id number] [place] [address] Jun, [facility] [place] [facility] [address] [id number] [place] [address] Jun, [facility] [place] [facility] [address] [id number] [place] [address] Jun, [facility] [place] [facility] [address] [id number] [place] [address] Jun, [facility] [place] [facility] [address] [id number] [place] [address] Jun, [facility] [place] [facility] [address] [id number] [place] [address] Jun, [facility] [place] [facility] [address] [id number] [place] [address] Jun, [facility] [place] [facility] [address] [id number] [place] [address] Jun, [facility] [place] [facility] [address] [id number] [place] [address] 05 Jun, 2014 [facility] [place] [facility] [address] [id number] [place] [address] 30 May, 2014 [facility] [place] [facility] [address] [id number] [place] [address] May, [facility] [place] [facility] [address] [id number] [place] [address] May, [facility] [place] [facility] [address] [id number] [place] [address] May, [facility] [place] [facility] [address] [id number] [place] [address] May, [facility] [place] [facility] [address] [id number] [place] [address] May, [facility] [place] [facility] [address] [id number] [place] [address] May, [facility] [place] [facility] [address] [id number] [place] [address] 18 May, 2014 [facility] [place] [facility] [address] [id number] [place] [address] 18 May, 2014 [facility] [place] [facility] [address] [id number] [place] [address] 15 May, 2014 [facility] [place] [facility] [address] [id number] [place] [address] 15 May, 2014 [facility] [place] [facility] [address] [id number] [place] [address] Apr, [facility] [place] [facility] [address] [id number] [place] [address] Apr, [facility] [place] [facility] [id number] [place] [address] Apr, [facility] [place] [facility] [address] [id number] [place] [address] Apr, [facility] [place] [facility] [address] [id number] [place] [address] Mar, [facility] [place] [facility] [address] [facility] [id number] [place] [address] Mar, [facility] [place] [facility] [address] [id number] [place] [address] Mar, [facility] [place] [facility] [address] [id number] [place] [address] Mar, [facility] [place] [facility] [address] [id number] [place] [address] Feb, [facility] [place] [facility] [address] [facility] [id number] [place] [address] Feb, [facility] [place] [facility] [address] [id number] [place] [address] Feb, [facility] [place] [facility] [address] [id number] [place] [address] Feb, [facility] [place] [facility] [address] [id number] [place] [address] 16 Feb, 2014 [facility] [place] [facility] [address] [id number] [place] [address] 16 Feb, 2014 [facility] [place] [facility] [address] [id number] [place] [address] Jan, [facility] [place] [facility] [address] [id number] [place] [address] Jan, [facility] [place] [facility] [address] [id number] [place] [address] Jan, [facility] [place] [facility] [address] [id number] [place] [address] Jan, [facility] [place] [facility] [address] [id number] [place] [address] Jan, [facility] [place] [facility] [address] [id number] [place] [address] Jan, [facility] [place] [facility] [address] [id number] [place] [address] Dec, [facility] [place] [facility] [address] [id number] [place] [address] Dec, [facility] [place] [facility] [address] [facility] [id number] [facility] [place] [address] Nov, [facility] [place] [facility] [address] [facility] [id number] [facility] [place] [address] Nov, [facility] [place] [facility] [address] [id number] [place] [address] Nov, [facility] [place] [facility] [address] [id number] [place] [address] Nov, [facility] [place] [facility] [address] [facility] [id number] [facility] [place] [address] Nov, [facility] [place] [facility] [address] [id number] [place] [address] Nov, [facility] [place] [facility] [address] [id number] [place] [address] Nov, [facility] [place] [facility] [address] [id number] [place] [address] October, [facility] [place] [facility] [address] [facility] [id number] [place] [address] October, [facility] [place] [facility] [address] [id number] [place] [address] Sep, [facility] [place] [facility] [address] [id number] [place] [address] Sep, [facility] [place] [facility] [address] [id number] [place] [address] Sep, [facility] [place] [facility] [address] [facility] [id number] [place] [address] Sep, [facility] [place] [facility] [address] [id number] [place] [address] 17 Sep, 2013 [facility] [place] [facility] [address] [facility] [id number] [place] [address] Sep, [facility] [place] [facility] [address] [id number] [place] [address] Sep, [facility] [place] [facility] [address] [id number] [place] [address] 16 Sep, 2013 [facility] [place] [facility] [address] [id number] [facility] [place] [address] 16 Sep, 2013 [facility] [place] [facility] [address] [facility] [id number] [place] [address] 14 Sep, 2013 [facility] [place] [facility] [address] [id number] [place] [address] 14 Sep, 2013 [facility] [place] [facility] [address] [facility] [id number] [place] [address] Sep, [facility] [place] [facility] [address] [facility] [id number] [place] [address] Sep, [facility] [place] [facility] [address] [id number] [place] [address] 08 Sep, 2013 [facility] [place] [facility] [address] [id number] [place] [address] Sep, [facility] [place] [facility] [address] [id number] [place] [address] 24 Aug, 2013 [facility] [place] [facility] [address] [facility] [id number] [place] [address] 24 Aug, 2013 [facility] [place] [facility] [address] [id number] [place] [address] 24 Aug, 2013 [facility] [place] [facility] [address] [id number] [place] [address] Aug, [facility] [place] [facility] [address] [id number] [place] [address] Aug, [facility] [place] [facility] [address] [facility] [id number] [place] [address] Aug, [facility] [place] [facility] [address] [id number] [place] [address] Aug, [facility] [place] [facility] [address] [id number] [place] [address] Aug, [facility] [place] [facility] [address] [id number] [place] [address] Aug, [facility] [place] [facility] [address] [id number] [place] [address] Aug, [facility] [place] [facility] [address] [id number] [place] [address] Jun, [facility] [place] [facility] [address] [id number] [place] [address] Jun, [facility] [place] [facility] [address] [id number] [place] [address] Jun, [facility] [place] [facility] [address] [id number] [place] [address] Jun, [facility] [place] [facility] [address] [id number] [place] [address] Jun, [facility] [place] [facility] [address] [id number] [place] [address] Jun, [facility] [place] [facility] [address] [id number] [place] [address] Jun, [facility] [place] [facility] [address] [id number] [place] [address] Jun, [facility] [place] [facility] [address] [id number] [place] [address] Jun, [facility] [place] [facility] [address] [id number] [place] [address] Jun, [facility] [place] [facility] [address] [id number] [place] [address] Jun, [facility] [place] [facility] [address] [id number] [place] [address] Jun, [facility] [place] [facility] [address] [id number] [place] [address] Apr, [facility] [place] [facility] [address] [id number] [place] [address] Apr, [facility] [place] [facility] [address] [id number] [place] [address] Jan, [facility] [place] [facility] [address] [id number] [place] [address] Jan, [facility] [address] [id number] [place] [address] Jan, [facility] [address] [id number] [place] [address] Jan, [facility] [address] [id number] [place] [address] Jan, [facility] [id number] [place] [address] Jan, [facility] [address] [id number] [place] [address] Jan, [facility] [address] [place] [id number] Jan, [facility] [address] [id number] [place] [address] Dec, [facility] [id number] [place] [address] Dec, [facility] [id number] [place] [address] Dec, [facility] [id number] [place] [address] Dec, [facility] [id number] [place] [address] Dec, [facility] [id number] [place] [address] Dec, [facility] [id number] [place] [address] Dec, [facility] [id number] [place] [address] Nov, [facility] [address] [id number] [place] [address] Nov, IMMUNIZATIONS No Known Immunizations SOCIAL HISTORY Never Assessed REASON FOR VISIT PLAN OF CARE VITAL SIGNS MEDICATIONS Unknown Medications RESULTS No Results PROCEDURES No Known procedures INSTRUCTIONS MEDICATIONS ADMINISTERED No Known Medications
--- OUTSIDE RECORDS SUMMARY | 2019-10-21 19:14 | XMS REPORT ---
Author Author Ayden Payne Doctor Organization [facility] Address Unknown Phone Unavailable Care Team Providers Care Scrub Woman Name Role Phone Migration, Doctor Unavailable Unavailable PROBLEMS Type Condition ICD9-CM Code DHE43-OC Code Onset Dates Condition S tatus SNOMED Code Problem Personal history of fall V15.88 Activ e 186275547 Problem Routine general medical examination at [facility] y V70.0 Active 394842262 Problem Personal history of venous thrombosis and embolism V12.51 Active 803658642 Problem Status of other artificial opening of urinary tract V44.6 Active Problem Suicide and self-inflicted p oisoning by unspecified drug or medicinal substance E950.5 Active Problem Other dyspnea and respiratory abnormalities 786.09 Active 933127884 Problem Dysuria 788.1 Active 80546643 Problem Congestive heart failure, unspecified 428.0 Active 65849416 Problem Other screening breast examination V76.19 Active 55518892 Problem Unspecified hypotension 458.9 Active 35960889 Problem Other specified disorders of bladder 596.89 Active 73662269 Problem Encounter for long-term (current) use of other medications V58.69 Active 655895056 Problem Counseling on substance use and abuse V65.42 Active 326598919 Problem Unspecified myalgia and myositis 729.1 Active 043791003 Problem Pain in soft tissues of limb 729.5 A ctive 14812155 Problem Urinary tract infection, site not specified 599.0 Active 95957968 Problem Pain in joint, lower leg 719.46 Activ e 702986500 Problem Chronic airway obstruction, not elsewhere classified 496 Active 42367707 Problem Neurogenic bladder, NOS 596.54 Active 293463770 Problem Acute sinusitis, unspecified 461.9 A ctive 51284251 Problem Personal history of pulmonary embolism V12.55 Active 293066381 Problem Acute bronchitis 466.0 Active 105 77342 Problem Unspecified hearing loss 389.9 Activ e 08294077 Problem Unspecified otalgia 388.70 Active 91184825 Problem Unspecified hereditary and idiopathic peripheral neuropath y 356.9 Active 803568815 Problem Other and unspecified hyperlipidemia 272.4 Active 76132611 Problem Altered mental status 780.97 Active 435432309 Problem Diabetes mellitus without me ntion of complication, type II or unspecified type, not stated as uncontrolled 250.00 Active 577721256 Problem Shortness of breath 786.05 Active 609757606 Problem Other malaise and fatigue 780.79 Acti ve 112988569 Problem Other chronic pain 338.29 Active 8 5669239 Problem Nondependent tobacco use disorder 305.1 Active 348560503 Problem Amphetamine and other psychostimulant de pendence, 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 Active Problem Obesity, unspecified 278.00 Active 160607839 ALLERGIES No Information ENCOUNTERS Encounter Location Date Diagnosis [facility] [address] [address] Sep, [facility] [address] [address] Sep, [facility] [address] [address] Aug, [facility] [address] [address] Aug, [facility] [address] [address] Aug, [facility] [address] [address] Aug, [facility] [address] [address] Aug, [facility] [address] [address] Aug, [facility] [address] [address] Jul, [facility] [address] [address] Jul, [facility] [address] [address] Jul, [facility] [place] [facility] [id number] [place] [address] Jul, [facility] [place] [facility] [id number] [place] [address] Jul, [facility] [place] [facility] [id number] [place] [address] Jul, [facility] [place] [facility] [id number] [place] [address] Jul, [facility] [place] [facility] [id number] [place] [address] Jul, [facility] [place] [facility] [id number] [place] [address] Jul, [facility] [place] [facility] [id number] [place] [address] Jun, [facility] [place] [facility] [id number] [place] [address] Jun, [facility] [place] [facility] [id number] [place] [address] Jun, [facility] [place] [facility] [id number] [place] [address] Jun, [facility] [place] [facility] [id number] [place] [address] Jun, [facility] [place] [facility] [id number] [place] [address] Jun, [facility] [place] [facility] [id number] [place] [address] Jun, [facility] [place] [facility] [id number] [place] [address] Jun, [facility] [place] [facility] [id number] [place] [address] Jun, [facility] [place] [facility] [id number] [place] [address] Jun, [facility] [place] [facility] [id number] [place] [address] May, [facility] [place] [facility] [id number] [place] [address] May, [facility] [place] [facility] [id number] [place] [address] May, [facility] [place] [facility] [id number] [place] [address] May, [facility] [place] [facility] [id number] [place] [address] May, [facility] [place] [facility] [id number] [place] [address] May, [facility] [place] [facility] [id number] [place] [address] May, [facility] [place] [facility] [id number] [place] [address] May, [facility] [place] [facility] [id number] [place] [address] 18 May, 2014 [facility] [place] [facility] [id number] [place] [address] 15 May, 2014 [facility] [place] [facility] [id number] [place] [address] 15 May, 2014 [facility] [place] [facility] [id number] [place] [address] 17 Apr, 2014 [facility] [place] [facility] [id number] [place] [address] Apr, [facility] [place] [facility] [id number] [place] [address] Apr, [facility] [place] [facility] [id number] [place] [address] Apr, [facility] [place] [facility] [id number] [place] [address] Mar, [facility] [place] [facility] [id number] [place] [address] Mar, [facility] [place] [facility] [id number] [place] [address] Mar, [facility] [place] [facility] [address] [facility] [id number] [place] [address] Mar, [facility] [place] [facility] [address] [facility] [id number] [place] [address] Feb, [facility] [place] [facility] [id number] [place] [address] 23 Feb, 2014 [facility] [place] [facility] [address] [facility] [id number] [place] [address] Feb, [facility] [place] [facility] [address] [id number] [place] [address] Feb, [facility] [place] [facility] [id number] [place] [address] 16 Feb, 2014 [facility] [place] [facility] [id number] [place] [address] Feb, [facility] [place] [facility] [id number] [place] [address] Jan, [facility] [place] [facility] [address] [facility] [id number] [place] [address] Jan, [facility] [place] [facility] [id number] [place] [address] Jan, [facility] [place] [facility] [id number] [place] [address] Jan, [facility] [place] [facility] [id number] [place] [address] Jan, [facility] [place] [facility] [address] [facility] [id number] [place] [address] Jan, [facility] [place] [facility] [id number] [place] [address] Dec, [facility] [place] [facility] [id number] [place] [address] Dec, [facility] [place] [facility] [id number] [place] [address] Nov, [facility] [place] [facility] [address] [facility] [id number] [place] [address] Nov, [facility] [place] [facility] [id number] [place] [address] Nov, [facility] [place] [facility] [id number] [place] [address] Nov, [facility] [place] [facility] [id number] [place] [address] Nov, [facility] [place] [facility] [address] [facility] [id number] [place] [address] Nov, [facility] [place] [facility] [id number] [place] [address] Nov, [facility] [place] [facility] [id number] [place] [address] October, [facility] [place] [facility] [id number] [place] [address] October, [facility] [place] [facility] [id number] [place] [address] Sep, [facility] [place] [facility] [id number] [place] [address] Sep, [facility] [place] [facility] [id number] [place] [address] Sep, [facility] [place] [facility] [id number] [place] [address] Sep, [facility] [place] [facility] [id number] [place] [address] Sep, [facility] [place] [facility] [id number] [place] [address] Sep, [facility] [place] [facility] [id number] [place] [address] Sep, [facility] [place] [facility] [id number] [place] [address] Sep, [facility] [place] [facility] [id number] [place] [address] 16 Sep, 2013 [facility] [place] [facility] [address] [facility] [id number] [facility] [place] [address] 14 Sep, 2013 [facility] [place] [facility] [address] [facility] [id number] [place] [address] 14 Sep, 2013 [facility] [place] [facility] [id number] [facility] [place] [address] Sep, [facility] [place] [facility] [address] [facility] [id number] [place] [address] Sep, [facility] [place] [facility] [address] [facility] [id number] [facility] [place] [address] 08 Sep, 2013 [facility] [place] [facility] [address] [facility] [id number] [place] [address] Sep, [facility] [place] [facility] [id number] [facility] [place] [address] 24 Aug, 2013 [facility] [place] [facility] [id number] [facility] [place] [address] 24 Aug, 2013 [facility] [place] [facility] [id number] [facility] [place] [address] 24 Aug, 2013 [facility] [place] [facility] [id number] [facility] [place] [address] 24 Aug, 2013 [facility] [place] [facility] [id number] [place] [address] Aug, [facility] [place] [facility] [id number] [place] [address] Aug, [facility] [place] [facility] [id number] [facility] [place] [address] Aug, [facility] [place] [facility] [id number] [place] [address] Aug, [facility] [place] [facility] [id number] [place] [address] Aug, [facility] [place] [facility] [id number] [facility] [place] [address] Aug, [facility] [place] [facility] [id number] [place] [address] Jun, [facility] [place] [facility] [address] [facility] [id number] [place] [address] Jun, [facility] [place] [facility] [id number] [place] [address] Jun, [facility] [place] [facility] [id number] [place] [address] Jun, [facility] [place] [facility] [id number] [place] [address] Jun, [facility] [place] [facility] [address] [facility] [id number] [place] [address] Jun, [facility] [place] [facility] [id number] [place] [address] Jun, [facility] [place] [facility] [id number] [place] [address] Jun, [facility] [place] [facility] [id number] [place] [address] Jun, [facility] [place] [facility] [id number] [place] [address] Jun, [facility] [place] [facility] [id number] [place] [address] Jun, [facility] [place] [facility] [id number] [place] [address] Jun, [facility] [place] [facility] [id number] [place] [address] Apr, [facility] [place] [facility] [id number] [place] [address] Apr, [facility] [place] [facility] [address] [id number] [place] [address] Jan, [facility] [place] [facility] [id number] [place] [address] Jan, [facility] [place] [facility] [id number] [place] [address] Jan, [facility] [id number] [place] [address] Jan, [facility] [id number] [place] [address] Jan, [facility] [id number] [place] [address] Jan, [facility] [id number] [place] [address] Jan, [facility] [address] [place] [id number] Jan, [facility] [id number] [place] [address] Dec, [facility] [id number] [place] [address] Dec, [facility] [id number] [place] [address] Dec, [facility] [id number] [place] [address] Dec, [facility] [id number] [place] [address] Dec, [facility] [id number] [place] [address] Dec, [facility] [id number] [place] [address] Dec, [facility] [id number] [place] [address] Nov, [facility] [id number] [place] [address] Nov, IMMUNIZATIONS No Known Immunizations SOCIAL HISTORY Never Assessed REASON FOR VISIT PLAN OF CARE VITAL SIGNS MEDICATIONS Unknown Medications RESULTS No Results PROCEDURES No Known procedures INSTRUCTIONS MEDICATIONS ADMINISTERED No Known Medications
--- OUTSIDE RECORDS SUMMARY | 2019-10-21 19:14 | XMS REPORT ---
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 Active Problem Suicide and self-inflicted p oisoning by unspecified drug or medicinal substance E950.5 Active Problem Other dyspnea and respiratory abnormalities 786.09 Active 277731929 Problem Dysuria 788.1 Active 37177710 Problem Congestive heart failure, unspecified 428.0 Active 56733989 Problem Other screening breast examination V76.19 Active 55065993 Problem Unspecified hypotension 458.9 Active 53468073 Problem Other specified disorders of bladder 596.89 Active 46267447 Problem Encounter for long-term (current) use of other medications V58.69 Active 431637236 Problem Counseling on substance use and abuse V65.42 Active 800190189 Problem Unspecified myalgia and myositis 729.1 Active 846772174 Problem Pain in soft tissues of limb 729.5 A ctive 91598642 Problem Urinary tract infection, site not specified 599.0 Active 30170335 Problem Pain in joint, lower leg 719.46 Activ e 818435787 Problem Chronic airway obstruction, not elsewhere classified 496 Active 47145417 Problem Neurogenic bladder, NOS 596.54 Active 589289052 Problem Acute sinusitis, unspecified 461.9 A ctive 64002478 Problem Personal history of pulmonary embolism V12.55 Active 413417185 Problem Acute bronchitis 466.0 Active 105 91927 Problem Unspecified hearing loss 389.9 Activ e 00905926 Problem Unspecified otalgia 388.70 Active 12690759 Problem Unspecified hereditary and idiopathic peripheral neuropath y 356.9 Active 690038571 Problem Other and unspecified hyperlipidemia 272.4 Active 05589104 Problem Altered mental status 780.97 Active 242999495 Problem Diabetes mellitus without me ntion of complication, type II or unspecified type, not stated as uncontrolled 250.00 Active 383063900 Problem Shortness of breath 786.05 Active 361239138 Problem Other malaise and fatigue 780.79 Acti ve 214311545 Problem Other chronic pain 338.29 Active 8 1359705 Problem Nondependent tobacco use disorder 305.1 Active 370423630 Problem Amphetamine and other psychostimulant de pendence, 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 9 and Shortness of breath R06.[address] [id number] [address] Aug, [facility] [place] [address] [facility] [id number] [address] [place] [address] Sep, [facility] [place] [address] [facility] [id number] [address] [place] [address] Sep, [facility] [place] [address] [facility] [id number] [address] [place] [address] Aug, [facility] [place] [address] [facility] [id number] [address] [place] [address] Aug, [facility] [place] [address] [facility] [id number] [address] [place] [address] Aug, [facility] [place] [address] [facility] [id number] [address] [place] [address] Aug, [facility] [place] [address] [facility] [id number] [address] [place] [address] Aug, [facility] [place] [address] [facility] [id number] [address] [place] [address] Aug, [facility] [address] [id number] [address] [place] [address], [place] [address] Jul, [facility] [address] [id number] [address] [place] [address], [place] [address] Jul, [facility] [address] [id number] [address] [place] [address], [place] [address] Jul, [facility] [address] [id number] [address] [place] [address], [place] [address] Jul, [facility] [address] [id number] [address] [place] [address], [place] [address] Jul, [facility] [address] [id number] [address] [place] [address], [place] [address] Jul, [facility] [address] [id number] [address] [place] [address], [place] [address] Jul, [facility] [address] [id number] [address] [place] [address], [place] [address] Jul, [facility] [address] [id number] [address] [place] [address], [place] [address] Jul, [facility] [address] [id number] [address] [place] [address], [place] [address] Jun, [facility] [address] [id number] [address] [place] [address], [place] [address] Jun, [facility] [address] [id number] [address] [place] [address], [place] [address] Jun, [facility] [address] [id number] [address] [place] [address], [place] [address] Jun, [facility] [address] [id number] [address] [place] [address], [place] [address] Jun, [facility] [address] [id number] [address] [place] [address], [place] [address] Jun, [facility] [address] [id number] [address] [place] [address], [place] [address] Jun, [facility] [address] [id number] [address] [place] [address], [place] [address] Jun, [facility] [address] [id number] [address] [place] [address], [place] [address] Jun, [facility] [address] [id number] [address] [place] [address], [place] [address] Jun, [facility] [address] [id number] [address] [place] [address], [place] [address] May, [facility] [address] [id number] [address] [place] [address], [place] [address] May, [facility] [address] [id number] [address] [place] [address], [place] [address] May, [facility] [address] [id number] [address] [place] [address], [place] [address] May, [facility] [address] [id number] [address] [place] [address], [place] [address] 29 May, 2014 [facility] [address] [id number] [address] [place] [address], [place] [address] May, [facility] [address] [id number] [address] [place] [address], [place] [address] May, [facility] [address] [id number] [address] [place] [address], [place] [address] 18 May, 2014 [facility] [address] [id number] [address] [place] [address], [place] [address] 18 May, 2014 [facility] [address] [id number] [address] [place] [address], [place] [address] 15 May, 2014 [facility] [address] [id number] [address] [place] [address], [place] [address] 15 May, 2014 [facility] [address] [id number] [address] [place] [address], [place] [address] Apr, [facility] [address] [id number] [address] [place] [address], [place] [address] Apr, [facility] [address] [id number] [address] [place] [address], [place] [address] Apr, [facility] [address] [id number] [address] [place] [address], [place] [address] Apr, [facility] [address] [id number] [address] [place] [address], [place] [address] Mar, [facility] [address] [id number] [address] [place] [address], [place] [address] Mar, [facility] [address] [id number] [address] [place] [address], [place] [address] Mar, [facility] [address] [id number] [address] [place] [address], [place] [address] Mar, [facility] [address] [id number] [address] [place] [address], [place] [address] Feb, [facility] [address] [id number] [address] [place] [address], [place] [address] 23 Feb, 2014 [facility] [address] [id number] [address] [place] [address], [place] [address] 22 Feb, 2014 [facility] [address] [id number] [address] [place] [address], [place] [address] 22 Feb, 2014 [facility] [address] [id number] [address] [place] [address], [place] [address] 16 Feb, 2014 [facility] [address] [id number] [address] [place] [address], [place] [address] 16 Feb, 2014 [facility] [address] [id number] [address] [place] [address], [place] [address] Jan, [facility] [address] [id number] [address] [place] [address], [place] [address] Jan, [facility] [address] [id number] [address] [place] [address], [place] [address] Jan, [facility] [address] [id number] [address] [place] [address], [place] [address] Jan, [facility] [address] [id number] [address] [place] [address], [place] [address] Jan, [facility] [address] [id number] [address] [place] [address], [place] [address] Jan, [facility] [address] [id number] [address] [place] [address], [place] [address] Dec, [facility] [address] [id number] [address] [place] [address], [place] [address] Dec, [facility] [address] [id number] [address] [place] [address], [place] [address] Nov, [facility] [address] [id number] [address] [place] [address], [place] [address] Nov, [facility] [address] [id number] [address] [place] [address], [place] [address] Nov, [facility] [address] [id number] [address] [place] [address], [place] [address] Nov, [facility] [address] [id number] [address] [place] [address], [place] [address] Nov, [facility] [address] [id number] [address] [place] [address], [place] [address] Nov, [facility] [address] [id number] [address] [place] [address], [place] [address] Nov, [facility] [address] [id number] [address] [place] [address], [place] [address] October, [facility] [address] [id number] [address] [place] [address], [place] [address] October, [facility] [address] [id number] [address] [place] [address], [place] [address] Sep, [facility] [address] [id number] [facility] [place] [address] Sep, [facility] [address] [id number] [facility] [address] Sep, [facility] [address] [id number] [facility] [address] Sep, [facility] [address] [id number] [address] [place] [address], [place] [address] 17 Sep, 2013 [facility] [address] [id number] [address] [place] [address], [place] [address] 16 Sep, 2013 [facility] [address] [id number] [address] [place] [address], [place] [address] Sep, [facility] [address] [id number] [address] [place] [address], [place] [address] Sep, [facility] [address] [id number] [address] [place] [address], [place] [address] Sep, [facility] [address] [id number] [address] [place] [address], [place] [address] Sep, [facility] [address] [id number] [address] [place] [address], [place] [address] Sep, [facility] [address] [id number] [address] [place] [address], [place] [address] Sep, [facility] [address] [id number] [address] [place] [address], [place] [address] Sep, [facility] [address] [id number] [address] [place] [address], [place] [address] Sep, [facility] [address] [id number] [address] [place] [address], [place] [address] 08 Sep, 2013 [facility] [address] [id number] [address] [place] [address], [place] [address] 24 Aug, 2013 [facility] [address] [id number] [address] [place] [address], [place] [address] Aug, [facility] [address] [id number] [facility] [address] Aug, [facility] [address] [id number] [address] [place] [address], [place] [address] Aug, [facility] [address] [id number] [facility] [address] Aug, [facility] [address] [id number] [address] [place] [address], [place] [address] Aug, [facility] [address] [id number] [address] [place] [address], [place] [address] Aug, [facility] [address] [id number] [address] [place] [address], [place] [address] Aug, [facility] [address] [id number] [address] [place] [address], [place] [address] Aug, [facility] [address] [id number] [address] [place] [address], [place] [address] Aug, [facility] [address] [id number] [address] [place] [address], [place] [address] Jun, [facility] [address] [id number] [address] [place] [address], [place] [address] Jun, [facility] [address] [id number] [address] [place] [address], [place] [address] Jun, [facility] [address] [id number] [address] [place] [address], [place] [address] Jun, [facility] [address] [id number] [address] [place] [address], [place] [address] Jun, [facility] [address] [id number] [address] [place] [address], [place] [address] Jun, [facility] [address] [id number] [address] [place] [address], [place] [address] Jun, [facility] [address] [id number] [address] [place] [address], [place] [address] Jun, [facility] [address] [id number] [address] [place] [address], [place] [address] Jun, [facility] [address] [id number] [address] [place] [address], [place] [address] Jun, [facility] [address] [id number] [address] [place] [address], [place] [address] Jun, [facility] [address] [id number] [address] [place] [address], [place] [address] Jun, [facility] [address] [id number] [address] [place] [address], [place] [address] Apr, [facility] [address] [id number] [address] [place] [address], [place] [address] Apr, [facility] [address] [id number] [address] [place] [address], [place] [address] Jan, [facility] [address] [id number] [address] [place] [address], [place] [address] Jan, [facility] [address] [id number] [address] [place] [address], [place] [address] Jan, [facility] [address] [id number] [address] [place] [address], [place] [address] Jan, [facility] [address] [id number] [address] [place] [address], [place] [address] Jan, [facility] [address] [id number] [address] [place] [address], [place] [address] Jan, [facility] [address] [id number] [address] [place] [address], [place] [address] Jan, [facility] [address] [place] [id number] Jan, [facility] [address] [id number] [address] [place] [address], [place] [address] Dec, [facility] [place] [address] [id number] [address] [place] [address] Dec, [facility] [place] [address] [id number] [address] [place] [address] Dec, [facility] [place] [address] [id number] [address] [place] [address] Dec, [facility] [place] [address] [id number] [address] [place] [address] Dec, [facility] [place] [address] [id number] [address] [place] [address] Dec, [facility] [place] [address] [id number] [address] [place] [address] Dec, [facility] [place] [address] [id number] [address] [place] [address] Nov, [facility] [place] [address] [id number] [address] [place] [address] Nov, IMMUNIZATIONS No Known Immunizations SOCIAL HISTORY Never Assessed REASON FOR VISIT PLAN OF CARE VITAL SIGNS MEDICATIONS No Known Medications RESULTS No Results PROCEDURES No Known procedures INSTRUCTIONS MEDICATIONS ADMINISTERED No Known Medications
--- OUTSIDE RECORDS SUMMARY | 2019-10-21 19:14 | XMS REPORT ---
Author Author Ayden Payne Doctor Organization [facility] Address Unknown Phone Unavailable Care Team Providers Care Buckle Sewer Name Role Phone Migration, Doctor Unavailable Unavailable PROBLEMS Type Condition ICD9-CM Code [id number] Code Onset Dates Condition S tatus SNOMED Code Problem Personal history of fall V15.88 Activ e [id number] Problem Routine general medical examination at [facility] y V70.0 Active 300421627 Problem Personal history of venous thrombosis and embolism V12.51 Active 550142475 Problem Status of other artificial opening of urinary tract V44.6 Active Problem Suicide and self-inflicted p oisoning by unspecified drug or medicinal substance E950.5 Active Problem Other dyspnea and respiratory abnormalities 786.09 Active 610602227 Problem Dysuria 788.1 Active 97709875 Problem Congestive heart failure, unspecified 428.0 Active 59620277 Problem Other screening breast examination V76.19 Active 07555643 Problem Unspecified hypotension 458.9 Active 13136880 Problem Other specified disorders of bladder 596.89 Active 02469678 Problem Encounter for long-term (current) use of other medications V58.69 Active 074760074 Problem Counseling on substance use and abuse V65.42 Active 424752063 Problem Unspecified myalgia and myositis 729.1 Active 303993397 Problem Pain in soft tissues of limb 729.5 A ctive 62776962 Problem Urinary tract infection, site not specified 599.0 Active 35595541 Problem Pain in joint, lower leg 719.46 Activ e 859149410 Problem Chronic airway obstruction, not elsewhere classified 496 Active 72669932 Problem Neurogenic bladder, NOS 596.54 Active 844554651 Problem Acute sinusitis, unspecified 461.9 A ctive 34336321 Problem Personal history of pulmonary embolism V12.55 Active 314103347 Problem Acute bronchitis 466.0 Active 105 60750 Problem Unspecified hearing loss 389.9 Activ e 97082008 Problem Unspecified otalgia 388.70 Active 15974228 Problem Unspecified hereditary and idiopathic peripheral neuropath y 356.9 Active 146624619 Problem Other and unspecified hyperlipidemia 272.4 Active 87937308 Problem Altered mental status 780.97 Active 305747042 Problem Diabetes mellitus without me ntion of complication, type II or unspecified type, not stated as uncontrolled 250.00 Active 646275799 Problem Shortness of breath 786.05 Active 993062605 Problem Other malaise and fatigue 780.79 Acti ve 807106252 Problem Other chronic pain 338.29 Active 8 8292376 Problem Nondependent tobacco use disorder 305.1 Active 329384141 Problem Amphetamine and other psychostimulant de pendence, 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 Active Problem Obesity, unspecified 278.00 Active 928673085 ALLERGIES No Information ENCOUNTERS Encounter Location Date Diagnosis [facility] [address] [address] Sep, [facility] [address] [address] Sep, [facility] [address] [address] Aug, [facility] [address] [address] Aug, [facility] [address] [address] Aug, [facility] [address] [address] Aug, [facility] [address] [address] Aug, [facility] [address] [address] Aug, [facility] [address] [address] Jul, [facility] [address] [address] Jul, [facility] [address] [address] Jul, [facility] [place] [facility] [address] [id number] [place] [address] Jul, [facility] [place] [facility] [address] [id number] [place] [address] Jul, [facility] [place] [facility] [address] [id number] [place] [address] Jul, [facility] [place] [facility] [address] [id number] [place] [address] Jul, [facility] [place] [facility] [address] [id number] [place] [address] Jul, [facility] [place] [facility] [address] [id number] [place] [address] Jul, [facility] [place] [facility] [address] [id number] [place] [address] Jun, [facility] [place] [facility] [id number] [place] [address] Jun, [facility] [place] [facility] [address] [id number] [place] [address] Jun, [facility] [place] [facility] [address] [id number] [place] [address] Jun, [facility] [place] [facility] [address] [id number] [place] [address] Jun, [facility] [place] [facility] [address] [id number] [place] [address] Jun, [facility] [place] [facility] [address] [id number] [place] [address] Jun, [facility] [place] [facility] [address] [id number] [place] [address] Jun, [facility] [place] [facility] [address] [id number] [place] [address] Jun, [facility] [place] [facility] [address] [id number] [place] [address] Jun, [facility] [place] [facility] [address] [id number] [place] [address] May, [facility] [place] [facility] [address] [id number] [place] [address] May, [facility] [place] [facility] [address] [id number] [place] [address] May, [facility] [place] [facility] [address] [id number] [place] [address] May, [facility] [place] [facility] [address] [id number] [place] [address] May, [facility] [place] [facility] [address] [id number] [place] [address] May, [facility] [place] [facility] [address] [id number] [place] [address] May, [facility] [place] [facility] [address] [id number] [place] [address] May, [facility] [place] [facility] [address] [id number] [place] [address] 18 May, 2014 [facility] [place] [facility] [address] [id number] [place] [address] 15 May, 2014 [facility] [place] [facility] [address] [id number] [place] [address] 15 May, 2014 [facility] [place] [facility] [address] [id number] [place] [address] 17 Apr, 2014 [facility] [place] [facility] [address] [id number] [place] [address] Apr, [facility] [place] [facility] [address] [id number] [place] [address] Apr, [facility] [place] [facility] [address] [id number] [place] [address] Apr, [facility] [place] [facility] [address] [id number] [place] [address] Mar, [facility] [place] [facility] [address] [id number] [place] [address] Mar, [facility] [place] [facility] [address] [id number] [place] [address] Mar, [facility] [place] [facility] [address] [facility] [id number] [place] [address] Mar, [facility] [place] [facility] [address] [facility] [id number] [place] [address] Feb, [facility] [place] [facility] [address] [id number] [place] [address] 23 Feb, 2014 [facility] [place] [facility] [address] [facility] [id number] [place] [address] Feb, [facility] [place] [facility] [address] [id number] [place] [address] Feb, [facility] [place] [facility] [address] [id number] [place] [address] 16 Feb, 2014 [facility] [place] [facility] [address] [id number] [place] [address] Feb, [facility] [place] [facility] [address] [id number] [place] [address] Jan, [facility] [place] [facility] [address] [facility] [id number] [place] [address] Jan, [facility] [place] [facility] [address] [id number] [place] [address] Jan, [facility] [place] [facility] [address] [id number] [place] [address] Jan, [facility] [place] [facility] [address] [id number] [place] [address] Jan, [facility] [place] [facility] [address] [facility] [id number] [place] [address] Jan, [facility] [place] [facility] [address] [id number] [place] [address] Dec, [facility] [place] [facility] [address] [id number] [place] [address] Dec, [facility] [place] [facility] [address] [id number] [place] [address] Nov, [facility] [place] [facility] [address] [facility] [id number] [place] [address] Nov, [facility] [place] [facility] [address] [id number] [place] [address] Nov, [facility] [place] [facility] [address] [id number] [place] [address] Nov, [facility] [place] [facility] [address] [id number] [place] [address] Nov, [facility] [place] [facility] [address] [facility] [id number] [place] [address] Nov, [facility] [place] [facility] [address] [id number] [place] [address] Nov, [facility] [place] [facility] [address] [id number] [place] [address] October, [facility] [place] [facility] [address] [id number] [place] [address] October, [facility] [place] [facility] [address] [id number] [place] [address] Sep, [facility] [place] [facility] [address] [id number] [place] [address] Sep, [facility] [place] [facility] [address] [id number] [place] [address] Sep, [facility] [place] [facility] [address] [id number] [place] [address] Sep, [facility] [place] [facility] [address] [id number] [place] [address] Sep, [facility] [place] [facility] [address] [id number] [place] [address] Sep, [facility] [place] [facility] [address] [id number] [place] [address] Sep, [facility] [place] [facility] [address] [id number] [place] [address] Sep, [facility] [place] [facility] [address] [id number] [place] [address] 16 Sep, 2013 [facility] [place] [facility] [address] [facility] [id number] [facility] [place] [address] 14 Sep, 2013 [facility] [place] [facility] [address] [facility] [id number] [place] [address] 14 Sep, 2013 [facility] [place] [facility] [address] [id number] [facility] [place] [address] Sep, [facility] [place] [facility] [address] [facility] [id number] [place] [address] Sep, [facility] [place] [facility] [address] [facility] [id number] [facility] [place] [address] 08 Sep, 2013 [facility] [place] [facility] [address] [facility] [id number] [place] [address] Sep, [facility] [place] [facility] [address] [id number] [facility] [place] [address] 24 Aug, 2013 [facility] [place] [facility] [address] [id number] [facility] [place] [address] 24 Aug, 2013 [facility] [place] [facility] [address] [id number] [facility] [place] [address] 24 Aug, 2013 [facility] [place] [facility] [address] [id number] [facility] [place] [address] 24 Aug, 2013 [facility] [place] [facility] [address] [id number] [place] [address] Aug, [facility] [place] [facility] [address] [id number] [place] [address] Aug, [facility] [place] [facility] [address] [id number] [facility] [place] [address] Aug, [facility] [place] [facility] [address] [id number] [place] [address] Aug, [facility] [place] [facility] [address] [id number] [place] [address] Aug, [facility] [place] [facility] [address] [id number] [facility] [place] [address] Aug, [facility] [place] [facility] [address] [id number] [place] [address] Jun, [facility] [place] [facility] [address] [facility] [id number] [place] [address] Jun, [facility] [place] [facility] [address] [id number] [place] [address] Jun, [facility] [place] [facility] [address] [id number] [place] [address] Jun, [facility] [place] [facility] [address] [id number] [place] [address] Jun, [facility] [place] [facility] [address] [facility] [id number] [place] [address] Jun, [facility] [place] [facility] [address] [id number] [place] [address] Jun, [facility] [place] [facility] [address] [id number] [place] [address] Jun, [facility] [place] [facility] [address] [id number] [place] [address] Jun, [facility] [place] [facility] [address] [id number] [place] [address] Jun, [facility] [place] [facility] [address] [id number] [place] [address] Jun, [facility] [place] [facility] [address] [id number] [place] [address] Jun, [facility] [place] [facility] [address] [id number] [place] [address] Apr, [facility] [place] [facility] [address] [id number] [place] [address] Apr, [facility] [place] [facility] [address] [id number] [place] [address] Jan, [facility] [place] [facility] [address] [id number] [place] [address] Jan, [facility] [place] [facility] [address] [id number] [place] [address] Jan, [facility] [address] [id number] [place] [address] Jan, [facility] [address] [id number] [place] [address] Jan, [facility] [address] [id number] [place] [address] Jan, [facility] [address] [id number] [place] [address] Jan, [facility] [address] [place] [id number] Jan, [facility] [address] [id number] [place] [address] Dec, [facility] [address] [id number] [place] [address] Dec, [facility] [id number] [place] [address] Dec, [facility] [id number] [place] [address] Dec, [facility] [id number] [place] [address] Dec, [facility] [id number] [place] [address] Dec, [facility] [address] [id number] [place] [address] Dec, [facility] [address] [id number] [place] [address] Nov, [facility] [address] [id number] [place] [address] Nov, IMMUNIZATIONS No Known Immunizations SOCIAL HISTORY Never Assessed REASON FOR VISIT PLAN OF CARE VITAL SIGNS MEDICATIONS Unknown Medications RESULTS No Results PROCEDURES No Known procedures INSTRUCTIONS MEDICATIONS ADMINISTERED No Known Medications
--- OUTSIDE RECORDS SUMMARY | 2019-10-21 19:14 | XMS REPORT ---
Author Author Ayden Payne Doctor Organization [facility] Address Unknown Phone Unavailable Care Team Providers Care Roustabout Crew Leader Name Role Phone Migration, Doctor Unavailable Unavailable PROBLEMS Type Condition ICD9-CM Code NEM43-AO Code Onset Dates Condition S tatus SNOMED Code Problem Personal history of fall V15.88 Activ e 496180231 Problem Routine general medical examination at [facility] y V70.0 Active 431736443 Problem Personal history of venous thrombosis and embolism V12.51 Active 737510375 Problem Status of other artificial opening of urinary tract V44.6 Active Problem Suicide and self-inflicted p oisoning by unspecified drug or medicinal substance E950.5 Active Problem Other dyspnea and respiratory abnormalities 786.09 Active 303056577 Problem Dysuria 788.1 Active 20303370 Problem Congestive heart failure, unspecified 428.0 Active 80045320 Problem Other screening breast examination V76.19 Active 76617617 Problem Unspecified hypotension 458.9 Active 52811315 Problem Other specified disorders of bladder 596.89 Active 99902564 Problem Encounter for long-term (current) use of other medications V58.69 Active 920289190 Problem Counseling on substance use and abuse V65.42 Active 011538688 Problem Unspecified myalgia and myositis 729.1 Active 467626200 Problem Pain in soft tissues of limb 729.5 A ctive 47374302 Problem Urinary tract infection, site not specified 599.0 Active 60980306 Problem Pain in joint, lower leg 719.46 Activ e 895670167 Problem Chronic airway obstruction, not elsewhere classified 496 Active 86867608 Problem Neurogenic bladder, NOS 596.54 Active 176444919 Problem Acute sinusitis, unspecified 461.9 A ctive 56244833 Problem Personal history of pulmonary embolism V12.55 Active 356313857 Problem Acute bronchitis 466.0 Active 105 53951 Problem Unspecified hearing loss 389.9 Activ e 17167151 Problem Unspecified otalgia 388.70 Active 95262120 Problem Unspecified hereditary and idiopathic peripheral neuropath y 356.9 Active 397874027 Problem Other and unspecified hyperlipidemia 272.4 Active 87368947 Problem Altered mental status 780.97 Active 220132690 Problem Diabetes mellitus without me ntion of complication, type II or unspecified type, not stated as uncontrolled 250.00 Active 301811511 Problem Shortness of breath 786.05 Active 200419416 Problem Other malaise and fatigue 780.79 Acti ve 199742241 Problem Other chronic pain 338.29 Active 8 0356154 Problem Nondependent tobacco use disorder 305.1 Active 240997685 Problem Amphetamine and other psychostimulant de pendence, 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 Active Problem Obesity, unspecified 278.00 Active 155736163 ALLERGIES No Information ENCOUNTERS Encounter Location Date Diagnosis [facility] [address] [address] Sep, [facility] [address] [address] Sep, [facility] [address] [address] Aug, [facility] [address] [address] Aug, [facility] [address] [address] Aug, [facility] [address] [address] Aug, [facility] [address] [address] Aug, [facility] [address] [address] Aug, [facility] [address] [address] Jul, [facility] [address] [address] Jul, [facility] [address] [address] Jul, [facility] [place] [facility] [address] [id number] [place] [address] Jul, [facility] [place] [facility] [address] [id number] [place] [address] Jul, [facility] [place] [facility] [address] [id number] [place] [address] Jul, [facility] [place] [facility] [address] [id number] [place] [address] Jul, [facility] [place] [facility] [address] [id number] [place] [address] Jul, [facility] [place] [facility] [address] [id number] [place] [address] Jul, [facility] [place] [facility] [address] [id number] [place] [address] Jun, [facility] [place] [facility] [id number] [place] [address] Jun, [facility] [place] [facility] [address] [id number] [place] [address] Jun, [facility] [place] [facility] [address] [id number] [place] [address] Jun, [facility] [place] [facility] [address] [id number] [place] [address] Jun, [facility] [place] [facility] [address] [id number] [place] [address] Jun, [facility] [place] [facility] [address] [id number] [place] [address] Jun, [facility] [place] [facility] [address] [id number] [place] [address] Jun, [facility] [place] [facility] [address] [id number] [place] [address] Jun, [facility] [place] [facility] [address] [id number] [place] [address] Jun, [facility] [place] [facility] [address] [id number] [place] [address] May, [facility] [place] [facility] [address] [facility] [id number] [place] [address] May, [facility] [place] [facility] [address] [id number] [place] [address] May, [facility] [place] [facility] [address] [id number] [place] [address] May, [facility] [place] [facility] [address] [id number] [place] [address] May, [facility] [place] [facility] [address] [id number] [place] [address] May, [facility] [place] [facility] [address] [id number] [place] [address] May, [facility] [place] [facility] [address] [facility] [id number] [place] [address] May, [facility] [place] [facility] [address] [id number] [place] [address] 18 May, 2014 [facility] [place] [facility] [address] [facility] [id number] [place] [address] 15 May, 2014 [facility] [place] [facility] [address] [id number] [place] [address] 15 May, 2014 [facility] [place] [facility] [address] [facility] [id number] [place] [address] 17 Apr, 2014 [facility] [place] [facility] [address] [id number] [place] [address] Apr, [facility] [place] [facility] [address] [id number] [place] [address] Apr, [facility] [place] [facility] [address] [facility] [id number] [place] [address] Apr, [facility] [place] [facility] [address] [facility] [id number] [place] [address] Mar, [facility] [place] [facility] [address] [id number] [place] [address] Mar, [facility] [place] [facility] [address] [id number] [place] [address] Mar, [facility] [place] [facility] [address] [facility] [id number] [place] [address] Mar, [facility] [place] [facility] [address] [facility] [id number] [place] [address] Feb, [facility] [place] [facility] [address] [id number] [place] [address] 23 Feb, 2014 [facility] [place] [facility] [address] [facility] [id number] [place] [address] Feb, [facility] [place] [facility] [address] [id number] [place] [address] Feb, [facility] [place] [facility] [address] [id number] [place] [address] 16 Feb, 2014 [facility] [place] [facility] [address] [id number] [place] [address] Feb, [facility] [place] [facility] [address] [id number] [place] [address] Jan, [facility] [place] [facility] [address] [facility] [id number] [place] [address] Jan, [facility] [place] [facility] [address] [id number] [place] [address] Jan, [facility] [place] [facility] [address] [id number] [place] [address] Jan, [facility] [place] [facility] [address] [id number] [place] [address] Jan, [facility] [place] [facility] [address] [facility] [id number] [place] [address] Jan, [facility] [place] [facility] [address] [id number] [place] [address] Dec, [facility] [place] [facility] [address] [id number] [place] [address] Dec, [facility] [place] [facility] [address] [id number] [place] [address] Nov, [facility] [place] [facility] [address] [facility] [id number] [place] [address] Nov, [facility] [place] [facility] [address] [id number] [place] [address] Nov, [facility] [place] [facility] [address] [id number] [place] [address] Nov, [facility] [place] [facility] [address] [id number] [place] [address] Nov, [facility] [place] [facility] [address] [facility] [id number] [place] [address] Nov, [facility] [place] [facility] [address] [id number] [place] [address] Nov, [facility] [place] [facility] [address] [id number] [place] [address] October, [facility] [place] [facility] [address] [id number] [place] [address] October, [facility] [place] [facility] [address] [id number] [place] [address] Sep, [facility] [place] [facility] [address] [id number] [place] [address] Sep, [facility] [place] [facility] [address] [id number] [place] [address] Sep, [facility] [place] [facility] [address] [id number] [place] [address] Sep, [facility] [place] [facility] [address] [id number] [place] [address] Sep, [facility] [place] [facility] [address] [id number] [place] [address] Sep, [facility] [place] [facility] [address] [id number] [place] [address] Sep, [facility] [place] [facility] [address] [id number] [place] [address] Sep, [facility] [place] [facility] [address] [id number] [place] [address] 16 Sep, 2013 [facility] [place] [facility] [address] [facility] [id number] [place] [address] 14 Sep, 2013 [facility] [place] [facility] [address] [facility] [id number] [place] [address] 14 Sep, 2013 [facility] [place] [facility] [address] [id number] [place] [address] Sep, [facility] [place] [facility] [address] [facility] [id number] [place] [address] Sep, [facility] [place] [facility] [address] [facility] [id number] [place] [address] 08 Sep, 2013 [facility] [place] [facility] [address] [facility] [id number] [place] [address] Sep, [facility] [place] [facility] [address] [id number] [place] [address] 24 Aug, 2013 [facility] [place] [facility] [address] [id number] [place] [address] 24 Aug, 2013 [facility] [place] [facility] [address] [id number] [place] [address] 24 Aug, 2013 [facility] [place] [facility] [address] [id number] [place] [address] 24 Aug, 2013 [facility] [place] [facility] [address] [id number] [place] [address] Aug, [facility] [place] [facility] [address] [id number] [place] [address] Aug, [facility] [place] [facility] [address] [id number] [place] [address] Aug, [facility] [place] [facility] [address] [id number] [place] [address] Aug, [facility] [place] [facility] [address] [id number] [place] [address] Aug, [facility] [place] [facility] [address] [id number] [place] [address] Aug, [facility] [place] [facility] [address] [id number] [place] [address] Jun, [facility] [place] [facility] [address] [facility] [id number] [place] [address] Jun, [facility] [place] [facility] [address] [id number] [place] [address] Jun, [facility] [place] [facility] [address] [id number] [place] [address] Jun, [facility] [place] [facility] [address] [id number] [place] [address] Jun, [facility] [place] [facility] [address] [facility] [id number] [place] [address] Jun, [facility] [place] [facility] [address] [id number] [place] [address] Jun, [facility] [place] [facility] [address] [id number] [place] [address] Jun, [facility] [place] [facility] [address] [id number] [place] [address] Jun, [facility] [place] [facility] [address] [id number] [place] [address] Jun, [facility] [place] [facility] [address] [id number] [place] [address] Jun, [facility] [place] [facility] [address] [id number] [place] [address] Jun, [facility] [place] [facility] [address] [id number] [place] [address] Apr, [facility] [place] [facility] [address] [id number] [place] [address] Apr, [facility] [place] [facility] [address] [id number] [place] [address] Jan, [facility] [place] [facility] [address] [id number] [place] [address] Jan, [facility] [place] [facility] [address] [id number] [place] [address] Jan, [facility] [address] [id number] [place] [address] Jan, [facility] [id number] [place] [address] Jan, [facility] [address] [id number] [place] [address] Jan, [facility] [address] [id number] [place] [address] Jan, [facility] [address] [place] [id number] Jan, [facility] [id number] [place] [address] Dec, [facility] [id number] [place] [address] Dec, [facility] [id number] [place] [address] Dec, [facility] [id number] [place] [address] Dec, [facility] [id number] [place] [address] Dec, [facility] [id number] [place] [address] Dec, [facility] [id number] [place] [address] Dec, [facility] [id number] [place] [address] Nov, [facility] [id number] [place] [address] Nov, IMMUNIZATIONS No Known Immunizations SOCIAL HISTORY Never Assessed REASON FOR VISIT PLAN OF CARE VITAL SIGNS Height 62 in 2013-06-14 Weight 308 lbs 2013-06-14 Temperature 99 degrees Fahrenheit 2013-06-14 Heart Rate 106 bpm 2013-06-14 Respiratory Rate 20 2013-06-14 Blood pressure systolic 126 mmHg 2013-06-14 Blood pressure diastolic 70 mmHg 2013-06-14 MEDICATIONS Unknown Medications RESULTS No Results PROCEDURES Procedure Date Ordered Result Body Site MEASURE BLOOD OXYGEN LEVEL Jun 14, 2013 INSTRUCTIONS MEDICATIONS ADMINISTERED No Known Medications
--- OUTSIDE RECORDS SUMMARY | 2019-10-21 19:14 | XMS REPORT ---
Author Author Ayden Payne Doctor Organization [facility] Address Unknown Phone Unavailable Care Team Providers Care Ip Network Architect Name Role Phone Migration, Doctor Unavailable Unavailable PROBLEMS Type Condition ICD9-CM Code SCX97-GI Code Onset Dates Condition S tatus SNOMED Code Problem Personal history of fall V15.88 Activ e 810962081 Problem Routine general medical examination at 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 Active Problem Suicide and self-inflicted p oisoning by unspecified drug or medicinal substance E950.5 Active Problem Other dyspnea and respiratory abnormalities 786.09 Active 139914315 Problem Dysuria 788.1 Active 38616448 Problem Congestive heart failure, unspecified 428.0 Active 65098130 Problem Other screening breast examination V76.19 Active 14546443 Problem Unspecified hypotension 458.9 Active 53269586 Problem Other specified disorders of bladder 596.89 Active 77961109 Problem Encounter for long-term (current) use of other medications V58.69 Active 888231226 Problem Counseling on substance use and abuse V65.42 Active 326864557 Problem Unspecified myalgia and myositis 729.1 Active 297128288 Problem Pain in soft tissues of limb 729.5 A ctive 87111232 Problem Urinary tract infection, site not specified 599.0 Active 32127258 Problem Pain in joint, lower leg 719.46 Activ e 317482722 Problem Chronic airway obstruction, not elsewhere classified 496 Active 57864459 Problem Neurogenic bladder, NOS 596.54 Active 436320990 Problem Acute sinusitis, unspecified 461.9 A ctive 85363279 Problem Personal history of pulmonary embolism V12.55 Active 770696689 Problem Acute bronchitis 466.0 Active 105 23805 Problem Unspecified hearing loss 389.9 Activ e 47507942 Problem Unspecified otalgia 388.70 Active 06581582 Problem Unspecified hereditary and idiopathic peripheral neuropath y 356.9 Active 438973578 Problem Other and unspecified hyperlipidemia 272.4 Active 07750870 Problem Altered mental status 780.97 Active 223673247 Problem Diabetes mellitus without me ntion of complication, type II or unspecified type, not stated as uncontrolled 250.00 Active 112552041 Problem Shortness of breath 786.05 Active 890220256 Problem Other malaise and fatigue 780.79 Acti ve 969270254 Problem Other chronic pain 338.29 Active 8 6728431 Problem Nondependent tobacco use disorder 305.1 Active 809922427 Problem Amphetamine and other psychostimulant de pendence, 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 9 and Shortness of breath R06.[address] [id number], [place] [address] Aug, [facility] [address] [facility] [id number] [address] [place] [address] Sep, [facility] [address] [facility] [id number] [address] [place] [address] Sep, [facility] [address] [facility] [id number] [address] [place] [address] Aug, [facility] [address] [facility] [id number] [address] [place] [address] Aug, [facility] [address] [facility] [id number] [address] [place] [address] Aug, [facility] [address] [facility] [id number] [address] [place] [address] Aug, [facility] [address] [facility] [id number] [address] [place] [address] Aug, [facility] [address] [facility] [id number] [address] [place] [address] Aug, [facility] [address] [id number] [address] [place] [address], [place] [address] Jul, [facility] [address] [id number] [address] [place] [address], [place] [address] Jul, [facility] [address] [id number] [address] [place] [address], [place] [address] Jul, [facility] [address] [id number] [address] [place] [address], [place] [address] Jul, [facility] [address] [id number] [address] [place] [address], [place] [address] Jul, [facility] [address] [id number] [address] [place] [address], [place] [address] Jul, [facility] [address] [id number] [address] [place] [address], [place] [address] Jul, [facility] [address] [id number] [address] [place] [address], [place] [address] Jul, [facility] [address] [id number] [address] [place] [address], [place] [address] Jul, [facility] [address] [id number] [address] [place] [address], [place] [address] Jun, [facility] [address] [id number] [address] [place] [address], [place] [address] Jun, [facility] [address] [id number] [address] [place] [address], [place] [address] Jun, [facility] [address] [id number] [address] [place] [address], [place] [address] Jun, [facility] [address] [id number] [address] [place] [address], [place] [address] Jun, [facility] [address] [id number] [address] [place] [address], [place] [address] Jun, [facility] [address] [id number] [address] [place] [address], [place] [address] Jun, [facility] [address] [id number] [address] [place] [address], [place] [address] Jun, [facility] [address] [id number] [address] [place] [address], [place] [address] Jun, [facility] [address] [id number] [address] [place] [address], [place] [address] Jun, [facility] [address] [id number] [address] [place] [address], [place] [address] May, [facility] [address] [id number] [address] [place] [address], [place] [address] May, [facility] [address] [id number] [address] [place] [address], [place] [address] May, [facility] [address] [id number] [address] [place] [address], [place] [address] May, [facility] [address] [id number] [address] [place] [address], [place] [address] 29 May, 2014 [facility] [address] [id number] [address] [place] [address], [place] [address] May, [facility] [address] [id number] [address] [place] [address], [place] [address] May, [facility] [address] [id number] [address] [place] [address], [place] [address] 18 May, 2014 [facility] [address] [id number] [address] [place] [address], [place] [address] 18 May, 2014 [facility] [address] [id number] [address] [place] [address], [place] [address] 15 May, 2014 [facility] [address] [id number] [address] [place] [address], [place] [address] 15 May, 2014 [facility] [address] [id number] [address] [place] [address], [place] [address] Apr, [facility] [address] [id number] [address] [place] [address], [place] [address] Apr, [facility] [address] [id number] [address] [place] [address], [place] [address] Apr, [facility] [address] [id number] [address] [place] [address], [place] [address] Apr, [facility] [address] [id number] [address] [place] [address], [place] [address] Mar, [facility] [address] [id number] [address] [place] [address], [place] [address] Mar, [facility] [address] [id number] [address] [place] [address], [place] [address] Mar, [facility] [address] [id number] [address] [place] [address], [place] [address] Mar, [facility] [address] [id number] [address] [place] [address], [place] [address] Feb, [facility] [address] [id number] [address] [place] [address], [place] [address] 23 Feb, 2014 [facility] [address] [id number] [address] [place] [address], [place] [address] 22 Feb, 2014 [facility] [address] [id number] [address] [place] [address], [place] [address] 22 Feb, 2014 [facility] [address] [id number] [address] [place] [address], [place] [address] 16 Feb, 2014 [facility] [address] [id number] [address] [place] [address], [place] [address] 16 Feb, 2014 [facility] [address] [id number] [address] [place] [address], [place] [address] Jan, [facility] [address] [id number] [address] [place] [address], [place] [address] Jan, [facility] [address] [id number] [address] [place] [address], [place] [address] Jan, [facility] [address] [id number] [address] [place] [address], [place] [address] Jan, [facility] [address] [id number] [address] [place] [address], [place] [address] Jan, [facility] [address] [id number] [address] [place] [address], [place] [address] Jan, [facility] [address] [id number] [address] [place] [address], [place] [address] Dec, [facility] [address] [id number] [address] [place] [address], [place] [address] Dec, [facility] [address] [id number] [address] [place] [address], [place] [address] Nov, [facility] [address] [id number] [address] [place] [address], [place] [address] Nov, [facility] [address] [id number] [address] [place] [address], [place] [address] Nov, [facility] [address] [id number] [address] [place] [address], [place] [address] Nov, [facility] [address] [id number] [address] [place] [address], [place] [address] Nov, [facility] [address] [id number] [address] [place] [address], [place] [address] Nov, [facility] [address] [id number] [address] [place] [address], [place] [address] Nov, [facility] [address] [id number] [address] [place] [address], [place] [address] October, [facility] [address] [id number] [address] [place] [address], [place] [address] October, [facility] [address] [id number] [address] [place] [address], [place] [address] Sep, [facility] [address] [id number] [facility] [place] [address] Sep, [facility] [address] [id number] [facility] [place] [address] Sep, [facility] [address] [id number] [facility] [place] [address] Sep, [facility] [address] [id number] [address] [place] [address], [place] [address] 17 Sep, 2013 [facility] [address] [id number] [address] [place] [address], [place] [address] 16 Sep, 2013 [facility] [address] [id number] [address] [place] [address], [place] [address] Sep, [facility] [address] [id number] [address] [place] [address], [place] [address] Sep, [facility] [address] [id number] [address] [place] [address], [place] [address] Sep, [facility] [address] [id number] [address] [place] [address], [place] [address] Sep, [facility] [address] [id number] [address] [place] [address], [place] [address] Sep, [facility] [address] [id number] [address] [place] [address], [place] [address] Sep, [facility] [address] [id number] [address] [place] [address], [place] [address] Sep, [facility] [address] [id number] [address] [place] [address], [place] [address] Sep, [facility] [address] [id number] [address] [place] [address], [place] [address] 08 Sep, 2013 [facility] [address] [id number] [address] [place] [address], [place] [address] 24 Aug, 2013 [facility] [address] [id number] [address] [place] [address], [place] [address] Aug, [facility] [address] [id number] [facility] [place] [address] Aug, [facility] [address] [id number] [address] [place] [address], [place] [address] Aug, [facility] [address] [id number] [facility] [place] [address] Aug, [facility] [address] [id number] [address] [place] [address], [place] [address] Aug, [facility] [address] [id number] [address] [place] [address], [place] [address] Aug, [facility] [address] [id number] [address] [place] [address], [place] [address] Aug, [facility] [address] [id number] [address] [place] [address], [place] [address] Aug, [facility] [address] [id number] [address] [place] [address], [place] [address] Aug, [facility] [address] [id number] [address] [place] [address], [place] [address] Jun, [facility] [address] [id number] [address] [place] [address], [place] [address] Jun, [facility] [address] [id number] [address] [place] [address], [place] [address] Jun, [facility] [address] [id number] [address] [place] [address], [place] [address] Jun, [facility] [address] [id number] [address] [place] [address], [place] [address] Jun, [facility] [address] [id number] [address] [place] [address], [place] [address] Jun, [facility] [address] [id number] [address] [place] [address], [place] [address] Jun, [facility] [address] [id number] [address] [place] [address], [place] [address] Jun, [facility] [address] [id number] [address] [place] [address], [place] [address] Jun, [facility] [address] [id number] [address] [place] [address], [place] [address] Jun, [facility] [address] [id number] [address] [place] [address], [place] [address] Jun, [facility] [address] [id number] [address] [place] [address], [place] [address] Jun, [facility] [address] [id number] [address] [place] [address], [place] [address] Apr, [facility] [address] [id number] [address] [place] [address], [place] [address] Apr, [facility] [address] [id number] [address] [place] [address], [place] [address] Jan, [facility] [address] [id number] [address] [place] [address], [place] [address] Jan, [facility] [address] [id number] [address] [place] [address], [place] [address] Jan, [facility] [address] [id number] [address] [place] [address], [place] [address] Jan, [facility] [address] [id number] [address] [place] [address], [place] [address] Jan, [facility] [address] [id number] [address] [place] [address], [place] [address] Jan, [facility] [address] [id number] [address] [place] [address], [place] [address] Jan, [facility] [address] [place] [id number] Jan, [facility] [address] [id number] [address] [place] [address], [place] [address] Dec, [facility] [address] [id number] [address] [place] [address] Dec, [facility] [address] [id number] [address] [place] [address] Dec, [facility] [address] [id number] [address] [place] [address] Dec, [facility] [address] [id number] [address] [place] [address] Dec, [facility] [address] [id number] [address] [place] [address] Dec, [facility] [address] [id number] [address] [place] [address] Dec, [facility] [address] [id number] [address] [place] [address] Nov, [facility] [address] [id number] [address] [place] [address] Nov, IMMUNIZATIONS No Known Immunizations SOCIAL HISTORY Never Assessed REASON FOR VISIT PLAN OF CARE VITAL SIGNS MEDICATIONS No Known Medications RESULTS No Results PROCEDURES No Known procedures INSTRUCTIONS MEDICATIONS ADMINISTERED No Known Medications
--- OUTSIDE RECORDS SUMMARY | 2019-10-21 19:14 | XMS REPORT ---
Author Author Ayden Stephens Organization [facility] Address [address] [place] [address] Care Team Providers Care Camera Storage Clerk Name Role Phone JOHN Stephens Unavailable PROBLEMS Type Condition ICD9-CM Code [id number] Code Onset Dates Condition S tatus SNOMED Code Problem Personal history of fall V15.88 Activ e 386319446 Problem Routine general [facility] V70.0 Active 930426081 Problem Personal history of venous thrombosis and embolism V12.51 Active 865381238 Problem Status of other artificial opening of urinary tract V44.6 Active Problem Suicide and self-inflicted p oisoning by unspecified drug or medicinal substance E950.5 Active Problem Other dyspnea and respiratory abnormalities 786.09 Active 891818322 Problem Dysuria 788.1 Active 68088347 Problem Congestive heart failure, unspecified 428.0 Active 69828271 Problem Other screening breast examination V76.19 Active 24931521 Problem Unspecified hypotension 458.9 Active 62072882 Problem Other specified disorders of bladder 596.89 Active 04526258 Problem Encounter for long-term (current) use of other medications V58.69 Active 209572865 Problem Counseling on substance use and abuse V65.42 Active 937993172 Problem Unspecified myalgia and myositis 729.1 Active 519297994 Problem Pain in soft tissues of limb 729.5 A ctive 82092927 Problem Urinary tract infection, site not specified 599.0 Active 67299920 Problem Pain in joint, lower leg 719.46 Activ e 637658384 Problem Chronic airway obstruction, not elsewhere classified 496 Active 38055145 Problem Neurogenic bladder, NOS 596.54 Active 820901268 Problem Acute sinusitis, unspecified 461.9 A ctive 33975046 Problem Personal history of pulmonary embolism V12.55 Active 058629173 Problem Acute bronchitis 466.0 Active 105 55180 Problem Unspecified hearing loss 389.9 Activ e 86753476 Problem Unspecified otalgia 388.70 Active 56973302 Problem Unspecified hereditary and idiopathic peripheral neuropath y 356.9 Active 777464567 Problem Other and unspecified hyperlipidemia 272.4 Active 60221846 Problem Altered mental status 780.97 Active 336129542 Problem Diabetes mellitus without me ntion of complication, type II or unspecified type, not stated as uncontrolled 250.00 Active 414846775 Problem Shortness of breath 786.05 Active 702068837 Problem Other malaise and fatigue 780.79 Acti ve 726317523 Problem Other chronic pain 338.29 Active 8 5102445 Problem Nondependent tobacco use disorder 305.1 Active 322351561 Problem Amphetamine and other psychostimulant de pendence, 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 Active Problem Obesity, unspecified 278.00 Active 614535813 ALLERGIES No Information ENCOUNTERS Encounter Location Date Diagnosis [facility] [address] [address] Sep, [facility] [address] [address] Sep, [facility] [address] [address] Aug, [facility] [address] [address] Aug, [facility] [address] [address] Aug, [facility] [address] [address] Aug, [facility] [address] [address] Aug, [facility] [address] [address] Aug, [facility] [address] [address] Jul, [facility] [address] [address] Jul, [facility] [place] [facility] [address] [id number] [place] [address] Jul, [facility] [place] [facility] [address] [id number] [place] [address] Jul, 2014 [facility] [place] [facility] [address] [id number] [place] [address] Jul, 2014 [facility] [place] [facility] [address] [id number] [place] [address] Jul, 2014 [facility] [place] [facility] [address] [id number] [place] [address] 16 Jul, 2014 [facility] [place] [facility] [address] [id number] [place] [address] Jul, [facility] [place] [facility] [address] [id number] [place] [address] Jul, [facility] [place] [facility] [address] [id number] [place] [address] Jun, [facility] [place] [facility] [address] [id number] [place] [address] Jun, [facility] [place] [facility] [address] [id number] [place] [address] Jun, [facility] [place] [facility] [address] [id number] [place] [address] Jun, [facility] [place] [facility] [address] [id number] [place] [address] Jun, [facility] [place] [facility] [address] [id number] [place] [address] Jun, [facility] [place] [facility] [address] [id number] [place] [address] Jun, [facility] [place] [facility] [address] [id number] [place] [address] Jun, [facility] [place] [facility] [address] [id number] [place] [address] Jun, [facility] [place] [facility] [address] [id number] [place] [address] 05 Jun, 2014 [facility] [place] [facility] [address] [id number] [place] [address] 30 May, 2014 [facility] [place] [facility] [address] [id number] [place] [address] May, [facility] [place] [facility] [address] [id number] [place] [address] May, [facility] [place] [facility] [address] [id number] [place] [address] May, [facility] [place] [facility] [address] [id number] [place] [address] May, [facility] [place] [facility] [address] [id number] [place] [address] May, [facility] [place] [facility] [address] [id number] [place] [address] May, [facility] [place] [facility] [address] [id number] [place] [address] May, [facility] [place] [facility] [address] [id number] [place] [address] 18 May, 2014 [facility] [place] [facility] [address] [id number] [place] [address] 15 May, 2014 [facility] [place] [facility] [address] [id number] [place] [address] 15 May, 2014 [facility] [place] [facility] [address] [id number] [place] [address] Apr, [facility] [place] [facility] [address] [id number] [place] [address] Apr, [facility] [place] [facility] [id number] [place] [address] Apr, [facility] [place] [facility] [address] [id number] [place] [address] Apr, [facility] [place] [facility] [address] [id number] [place] [address] Mar, [facility] [place] [facility] [address] [facility] [id number] [place] [address] Mar, [facility] [place] [facility] [address] [facility] [id number] [place] [address] Mar, [facility] [place] [facility] [address] [facility] [id number] [place] [address] Mar, [facility] [place] [facility] [address] [id number] [place] [address] Feb, [facility] [place] [facility] [address] [facility] [id number] [place] [address] Feb, [facility] [place] [facility] [address] [facility] [id number] [place] [address] Feb, [facility] [place] [facility] [address] [id number] [place] [address] Feb, [facility] [place] [facility] [address] [id number] [place] [address] 16 Feb, 2014 [facility] [place] [facility] [address] [id number] [place] [address] Feb, [facility] [place] [facility] [address] [id number] [place] [address] Jan, [facility] [place] [facility] [address] [id number] [place] [address] Jan, [facility] [place] [facility] [address] [id number] [place] [address] Jan, [facility] [place] [facility] [address] [id number] [place] [address] Jan, [facility] [place] [facility] [address] [facility] [id number] [place] [address] Jan, [facility] [place] [facility] [address] [id number] [place] [address] Jan, [facility] [place] [facility] [address] [id number] [place] [address] Dec, [facility] [place] [facility] [address] [id number] [place] [address] Dec, [facility] [place] [facility] [address] [id number] [place] [address] Nov, [facility] [place] [facility] [address] [facility] [id number] [place] [address] Nov, [facility] [place] [facility] [address] [id number] [place] [address] Nov, [facility] [place] [facility] [address] [id number] [place] [address] Nov, [facility] [place] [facility] [address] [facility] [id number] [place] [address] Nov, [facility] [place] [facility] [address] [id number] [place] [address] Nov, [facility] [place] [facility] [address] [id number] [place] [address] Nov, [facility] [place] [facility] [address] [id number] [place] [address] October, [facility] [place] [facility] [address] [id number] [place] [address] October, [facility] [place] [facility] [address] [id number] [place] [address] Sep, [facility] [place] [facility] [address] [id number] [place] [address] Sep, [facility] [place] [facility] [address] [id number] [place] [address] Sep, [facility] [place] [facility] [address] [id number] [place] [address] Sep, [facility] [place] [facility] [address] [id number] [place] [address] 17 Sep, 2013 [facility] [place] [facility] [address] [id number] [place] [address] Sep, [facility] [place] [facility] [address] [id number] [place] [address] Sep, [facility] [place] [facility] [address] [id number] [place] [address] 16 Sep, 2013 [facility] [place] [facility] [address] [facility] [id number] [place] [address] 16 Sep, 2013 [facility] [place] [facility] [address] [facility] [id number] [place] [address] 14 Sep, 2013 [facility] [place] [facility] [address] [id number] [place] [address] 14 Sep, 2013 [facility] [place] [facility] [address] [facility] [id number] [place] [address] Sep, [facility] [place] [facility] [address] [facility] [id number] [place] [address] Sep, [facility] [place] [facility] [address] [id number] [place] [address] 08 Sep, 2013 [facility] [place] [facility] [address] [id number] [place] [address] Sep, [facility] [place] [facility] [address] [id number] [place] [address] 24 Aug, 2013 [facility] [place] [facility] [address] [facility] [id number] [place] [address] 24 Aug, 2013 [facility] [place] [facility] [address] [id number] [place] [address] 24 Aug, 2013 [facility] [place] [facility] [address] [id number] [place] [address] Aug, [facility] [place] [facility] [address] [id number] [place] [address] Aug, [facility] [place] [facility] [address] [facility] [id number] [place] [address] Aug, [facility] [place] [facility] [address] [id number] [place] [address] Aug, [facility] [place] [facility] [address] [facility] [id number] [place] [address] Aug, [facility] [place] [facility] [address] [id number] [place] [address] Aug, [facility] [place] [facility] [address] [facility] [id number] [place] [address] Aug, [facility] [place] [facility] [address] [id number] [place] [address] Jun, [facility] [place] [facility] [address] [id number] [place] [address] Jun, [facility] [place] [facility] [address] [id number] [place] [address] Jun, [facility] [place] [facility] [address] [id number] [place] [address] Jun, [facility] [place] [facility] [address] [id number] [place] [address] Jun, [facility] [place] [facility] [address] [id number] [place] [address] Jun, [facility] [place] [facility] [address] [id number] [place] [address] Jun, [facility] [place] [facility] [address] [id number] [place] [address] Jun, [facility] [place] [facility] [address] [id number] [place] [address] Jun, [facility] [place] [facility] [address] [id number] [place] [address] Jun, [facility] [place] [facility] [address] [id number] [place] [address] Jun, [facility] [place] [facility] [address] [id number] [place] [address] Jun, [facility] [place] [facility] [address] [id number] [place] [address] Apr, [facility] [place] [facility] [address] [id number] [place] [address] Apr, [facility] [place] [facility] [address] [id number] [place] [address] Jan, [facility] [place] [facility] [address] [id number] [place] [address] Jan, [facility] [address] [id number] [place] [address] Jan, [facility] [id number] [place] [address] Jan, [facility] [address] [id number] [place] [address] Jan, [facility] [id number] [place] [address] Jan, [facility] [address] [id number] [place] [address] Jan, [facility] [address] [place] [id number] Jan, [facility] [id number] [place] [address] Dec, [facility] [id number] [place] [address] Dec, [facility] [id number] [place] [address] Dec, [facility] [id number] [place] [address] Dec, [facility] [id number] [place] [address] Dec, [facility] [id number] [place] [address] Dec, [facility] [id number] [place] [address] Dec, [facility] [id number] [place] [address] Nov, [facility] [id number] [place] [address] Nov, IMMUNIZATIONS No Known Immunizations SOCIAL HISTORY Never Assessed REASON FOR VISIT PLAN OF CARE VITAL SIGNS MEDICATIONS Unknown Medications RESULTS No Results PROCEDURES Procedure Date Ordered Result Body Site RESPIRATORY FLOW VOLUME LOOP Jul 01, 2013 CARLENE/SYED DEMO Jul 01, 2013 SPRIOMETRY CHALLENGE Jul 01, 2013 SPIROMETRY Jul 01, 2013 INSTRUCTIONS MEDICATIONS ADMINISTERED No Known Medications
--- OUTSIDE RECORDS SUMMARY | 2019-10-21 19:15 | XMS REPORT ---
Author Author Ayden Payne Doctor Organization [facility] Address Unknown Phone Unavailable Care Team Providers Care Turbine Engine Assembler Name Role Phone Migration, Doctor Unavailable Unavailable PROBLEMS Type Condition ICD9-CM Code [id number] Code Onset Dates Condition S tatus SNOMED Code Problem Personal history of fall V15.88 Activ e 511812920 Problem Routine general medical examination at [facility] y V70.0 Active 336333555 Problem Personal history of venous thrombosis and embolism V12.51 Active 709669280 Problem Status of other artificial opening of urinary tract V44.6 Active Problem Suicide and self-inflicted p oisoning by unspecified drug or medicinal substance E950.5 Active Problem Other dyspnea and respiratory abnormalities 786.09 Active 396262474 Problem Dysuria 788.1 Active 40994888 Problem Congestive heart failure, unspecified 428.0 Active 74111865 Problem Other screening breast examination V76.19 Active 52095041 Problem Unspecified hypotension 458.9 Active 29826763 Problem Other specified disorders of bladder 596.89 Active 63249434 Problem Encounter for long-term (current) use of other medications V58.69 Active 746995540 Problem Counseling on substance use and abuse V65.42 Active 236165109 Problem Unspecified myalgia and myositis 729.1 Active 199634020 Problem Pain in soft tissues of limb 729.5 A ctive 75822844 Problem Urinary tract infection, site not specified 599.0 Active 32187998 Problem Pain in joint, lower leg 719.46 Activ e 305883560 Problem Chronic airway obstruction, not elsewhere classified 496 Active 81918560 Problem Neurogenic bladder, NOS 596.54 Active 504664597 Problem Acute sinusitis, unspecified 461.9 A ctive 53693696 Problem Personal history of pulmonary embolism V12.55 Active 094873725 Problem Acute bronchitis 466.0 Active 105 63698 Problem Unspecified hearing loss 389.9 Activ e 19087268 Problem Unspecified otalgia 388.70 Active 37367699 Problem Unspecified hereditary and idiopathic peripheral neuropath y 356.9 Active 314920766 Problem Other and unspecified hyperlipidemia 272.4 Active 75155326 Problem Altered mental status 780.97 Active 442940686 Problem Diabetes mellitus without me ntion of complication, type II or unspecified type, not stated as uncontrolled 250.00 Active 389020010 Problem Shortness of breath 786.05 Active 640549896 Problem Other malaise and fatigue 780.79 Acti ve 382969076 Problem Other chronic pain 338.29 Active 8 0187895 Problem Nondependent tobacco use disorder 305.1 Active 206815579 Problem Amphetamine and other psychostimulant de pendence, 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 Active Problem Obesity, unspecified 278.00 Active 137630775 ALLERGIES No Information ENCOUNTERS Encounter Location Date Diagnosis [facility] [address] [address] Sep, [facility] [address] [address] Sep, [facility] [address] [address] Aug, [facility] [address] [address] Aug, [facility] [address] [address] Aug, [facility] [address] [address] Aug, [facility] [address] [address] Aug, [facility] [address] [address] Aug, [facility] [address] [address] Jul, [facility] [address] [address] Jul, [facility] [address] [address] Jul, [facility] [place] [facility] [address] [id number] [place] [address] Jul, [facility] [place] [facility] [address] [id number] [place] [address] Jul, [facility] [place] [facility] [address] [id number] [place] [address] Jul, [facility] [place] [facility] [address] [id number] [place] [address] Jul, [facility] [place] [facility] [address] [id number] [place] [address] Jul, [facility] [place] [facility] [address] [id number] [place] [address] Jul, [facility] [place] [facility] [address] [id number] [place] [address] Jun, [facility] [place] [facility] [id number] [place] [address] Jun, [facility] [place] [facility] [address] [id number] [place] [address] Jun, [facility] [place] [facility] [address] [id number] [place] [address] Jun, [facility] [place] [facility] [address] [id number] [place] [address] Jun, [facility] [place] [facility] [address] [id number] [place] [address] Jun, [facility] [place] [facility] [address] [id number] [place] [address] Jun, [facility] [place] [facility] [address] [id number] [place] [address] Jun, [facility] [place] [facility] [address] [id number] [place] [address] Jun, [facility] [place] [facility] [address] [id number] [place] [address] Jun, [facility] [place] [facility] [address] [id number] [place] [address] May, [facility] [place] [facility] [address] [id number] [place] [address] May, [facility] [place] [facility] [address] [id number] [place] [address] May, [facility] [place] [facility] [address] [id number] [place] [address] May, [facility] [place] [facility] [address] [id number] [place] [address] May, [facility] [place] [facility] [address] [id number] [place] [address] May, [facility] [place] [facility] [address] [id number] [place] [address] May, [facility] [place] [facility] [address] [id number] [place] [address] May, [facility] [place] [facility] [address] [id number] [place] [address] 18 May, 2014 [facility] [place] [facility] [address] [id number] [place] [address] 15 May, 2014 [facility] [place] [facility] [address] [id number] [place] [address] 15 May, 2014 [facility] [place] [facility] [address] [id number] [place] [address] 17 Apr, 2014 [facility] [place] [facility] [address] [id number] [place] [address] Apr, [facility] [place] [facility] [address] [id number] [place] [address] Apr, [facility] [place] [facility] [address] [id number] [place] [address] Apr, [facility] [place] [facility] [address] [id number] [place] [address] Mar, [facility] [place] [facility] [address] [id number] [place] [address] Mar, [facility] [place] [facility] [address] [id number] [place] [address] Mar, [facility] [place] [facility] [address] [facility] [id number] [place] [address] Mar, [facility] [place] [facility] [address] [facility] [id number] [place] [address] Feb, [facility] [place] [facility] [address] [id number] [place] [address] 23 Feb, 2014 [facility] [place] [facility] [address] [facility] [id number] [place] [address] Feb, [facility] [place] [facility] [address] [id number] [place] [address] Feb, [facility] [place] [facility] [address] [id number] [place] [address] 16 Feb, 2014 [facility] [place] [facility] [address] [id number] [place] [address] Feb, [facility] [place] [facility] [address] [id number] [place] [address] Jan, [facility] [place] [facility] [address] [facility] [id number] [place] [address] Jan, [facility] [place] [facility] [address] [id number] [place] [address] Jan, [facility] [place] [facility] [address] [id number] [place] [address] Jan, [facility] [place] [facility] [address] [id number] [place] [address] Jan, [facility] [place] [facility] [address] [facility] [id number] [place] [address] Jan, [facility] [place] [facility] [address] [id number] [place] [address] Dec, [facility] [place] [facility] [address] [id number] [place] [address] Dec, [facility] [place] [facility] [address] [id number] [place] [address] Nov, [facility] [place] [facility] [address] [facility] [id number] [place] [address] Nov, [facility] [place] [facility] [address] [id number] [place] [address] Nov, [facility] [place] [facility] [address] [id number] [place] [address] Nov, [facility] [place] [facility] [address] [id number] [place] [address] Nov, [facility] [place] [facility] [address] [facility] [id number] [place] [address] Nov, [facility] [place] [facility] [address] [id number] [place] [address] Nov, [facility] [place] [facility] [address] [id number] [place] [address] October, [facility] [place] [facility] [address] [id number] [place] [address] October, [facility] [place] [facility] [address] [id number] [place] [address] Sep, [facility] [place] [facility] [address] [id number] [place] [address] Sep, [facility] [place] [facility] [address] [id number] [place] [address] Sep, [facility] [place] [facility] [address] [id number] [place] [address] Sep, [facility] [place] [facility] [address] [id number] [place] [address] Sep, [facility] [place] [facility] [address] [id number] [place] [address] Sep, [facility] [place] [facility] [address] [id number] [place] [address] Sep, [facility] [place] [facility] [address] [id number] [place] [address] Sep, [facility] [place] [facility] [address] [id number] [place] [address] 16 Sep, 2013 [facility] [place] [facility] [address] [facility] [id number] [place] [address] 14 Sep, 2013 [facility] [place] [facility] [address] [facility] [id number] [place] [address] 14 Sep, 2013 [facility] [place] [facility] [address] [id number] [place] [address] Sep, [facility] [place] [facility] [address] [facility] [id number] [place] [address] Sep, [facility] [place] [facility] [address] [facility] [id number] [place] [address] 08 Sep, 2013 [facility] [place] [facility] [address] [facility] [id number] [place] [address] Sep, [facility] [place] [facility] [address] [id number] [place] [address] 24 Aug, 2013 [facility] [place] [facility] [address] [id number] [place] [address] 24 Aug, 2013 [facility] [place] [facility] [address] [id number] [place] [address] 24 Aug, 2013 [facility] [place] [facility] [address] [id number] [place] [address] 24 Aug, 2013 [facility] [place] [facility] [address] [id number] [place] [address] Aug, [facility] [place] [facility] [address] [id number] [place] [address] Aug, [facility] [place] [facility] [address] [id number] [place] [address] Aug, [facility] [place] [facility] [address] [id number] [place] [address] Aug, [facility] [place] [facility] [address] [id number] [place] [address] Aug, [facility] [place] [facility] [address] [id number] [place] [address] Aug, [facility] [place] [facility] [address] [id number] [place] [address] Jun, [facility] [place] [facility] [address] [facility] [id number] [place] [address] Jun, [facility] [place] [facility] [address] [id number] [place] [address] Jun, [facility] [place] [facility] [address] [id number] [place] [address] Jun, [facility] [place] [facility] [address] [id number] [place] [address] Jun, [facility] [place] [facility] [address] [facility] [id number] [place] [address] Jun, [facility] [place] [facility] [address] [id number] [place] [address] Jun, [facility] [place] [facility] [address] [id number] [place] [address] Jun, [facility] [place] [facility] [address] [id number] [place] [address] Jun, [facility] [place] [facility] [address] [id number] [place] [address] Jun, [facility] [place] [facility] [address] [id number] [place] [address] Jun, [facility] [place] [facility] [address] [id number] [place] [address] Jun, [facility] [place] [facility] [address] [id number] [place] [address] Apr, [facility] [place] [facility] [address] [id number] [place] [address] Apr, [facility] [place] [facility] [address] [id number] [place] [address] Jan, [facility] [place] [facility] [address] [id number] [place] [address] Jan, [facility] [place] [facility] [address] [id number] [place] [address] Jan, [facility] [address] [id number] [place] [address] Jan, [facility] [id number] [place] [address] Jan, [facility] [address] [id number] [place] [address] Jan, [facility] [address] [id number] [place] [address] Jan, [facility] [address] [place] [id number] Jan, [facility] [id number] [place] [address] Dec, [facility] [id number] [place] [address] Dec, [facility] [id number] [place] [address] Dec, [facility] [id number] [place] [address] Dec, [facility] [id number] [place] [address] Dec, [facility] [id number] [place] [address] Dec, [facility] [id number] [place] [address] Dec, [facility] [id number] [place] [address] Nov, [facility] [id number] [place] [address] Nov, IMMUNIZATIONS No Known Immunizations SOCIAL HISTORY Never Assessed REASON FOR VISIT PLAN OF CARE VITAL SIGNS Height 62 in 2013-08-22 Weight 293.3 lbs 2013-08-22 Temperature 99.3 degrees Fahrenheit 2013-08-22 Heart Rate 84 bpm 2013-08-22 Respiratory Rate 22 2013-08-22 Blood pressure systolic 118 mmHg 2013-08-22 Blood pressure diastolic 82 mmHg 2013-08-22 MEDICATIONS Unknown Medications RESULTS No Results PROCEDURES Procedure Date Ordered Result Body Site PROTHROMBIN TIME August 22, 2013 GLYCATED HEMOGLOBIN TEST August 22, 2013 INSTRUCTIONS MEDICATIONS ADMINISTERED No Known Medications
--- OUTSIDE RECORDS SUMMARY | 2019-10-21 19:15 | XMS REPORT ---
Author Author Ayden Payne Doctor Organization [facility] Address Unknown Phone Unavailable Care Team Providers Care Ash Collector Name Role Phone Migration, Doctor Unavailable Unavailable PROBLEMS Type Condition ICD9-CM Code TTH23-VO Code Onset Dates Condition S tatus SNOMED Code Problem Personal history of fall V15.88 Activ e 435437988 Problem Routine general medical examination at [facility] y V70.0 Active 154428930 Problem Personal history of venous thrombosis and embolism V12.51 Active 141158396 Problem Status of other artificial opening of urinary tract V44.6 Active Problem Suicide and self-inflicted p oisoning by unspecified drug or medicinal substance E950.5 Active Problem Other dyspnea and respiratory abnormalities 786.09 Active 290021959 Problem Dysuria 788.1 Active 74032378 Problem Congestive heart failure, unspecified 428.0 Active 93521336 Problem Other screening breast examination V76.19 Active 30635194 Problem Unspecified hypotension 458.9 Active 21303964 Problem Other specified disorders of bladder 596.89 Active 33982234 Problem Encounter for long-term (current) use of other medications V58.69 Active 704756864 Problem Counseling on substance use and abuse V65.42 Active 623318131 Problem Unspecified myalgia and myositis 729.1 Active 070744903 Problem Pain in soft tissues of limb 729.5 A ctive 93475304 Problem Urinary tract infection, site not specified 599.0 Active 52069928 Problem Pain in joint, lower leg 719.46 Activ e 645088525 Problem Chronic airway obstruction, not elsewhere classified 496 Active 04703015 Problem Neurogenic bladder, NOS 596.54 Active 241503053 Problem Acute sinusitis, unspecified 461.9 A ctive 17939670 Problem Personal history of pulmonary embolism V12.55 Active 567068312 Problem Acute bronchitis 466.0 Active 105 98395 Problem Unspecified hearing loss 389.9 Activ e 84094036 Problem Unspecified otalgia 388.70 Active 97843029 Problem Unspecified hereditary and idiopathic peripheral neuropath y 356.9 Active 195697387 Problem Other and unspecified hyperlipidemia 272.4 Active 18938171 Problem Altered mental status 780.97 Active 342562357 Problem Diabetes mellitus without me ntion of complication, type II or unspecified type, not stated as uncontrolled 250.00 Active 451683579 Problem Shortness of breath 786.05 Active 734719536 Problem Other malaise and fatigue 780.79 Acti ve 148292017 Problem Other chronic pain 338.29 Active 8 1074220 Problem Nondependent tobacco use disorder 305.1 Active 265470119 Problem Amphetamine and other psychostimulant de pendence, 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 Active Problem Obesity, unspecified 278.00 Active 909062847 ALLERGIES No Information ENCOUNTERS Encounter Location Date Diagnosis [facility] [address] [address] Sep, [facility] [address] [address] Sep, [facility] [address] [address] Aug, [facility] [address] [address] Aug, [facility] [address] [address] Aug, [facility] [address] [address] Aug, [facility] [address] [address] Aug, [facility] [address] [address] Aug, [facility] [address] [address] Jul, [facility] [address] [address] Jul, [facility] [address] [address] Jul, [facility] [place] [facility] [address] [id number] [place] [address] Jul, [facility] [place] [facility] [address] [id number] [place] [address] Jul, [facility] [place] [facility] [address] [id number] [place] [address] Jul, [facility] [place] [facility] [address] [id number] [place] [address] Jul, [facility] [place] [facility] [address] [id number] [place] [address] Jul, [facility] [place] [facility] [address] [id number] [place] [address] Jul, [facility] [place] [facility] [address] [id number] [place] [address] Jun, [facility] [place] [facility] [id number] [place] [address] Jun, [facility] [place] [facility] [address] [id number] [place] [address] Jun, [facility] [place] [facility] [address] [id number] [place] [address] Jun, [facility] [place] [facility] [address] [id number] [place] [address] Jun, [facility] [place] [facility] [address] [id number] [place] [address] Jun, [facility] [place] [facility] [address] [id number] [place] [address] Jun, [facility] [place] [facility] [address] [id number] [place] [address] Jun, [facility] [place] [facility] [address] [id number] [place] [address] Jun, [facility] [place] [facility] [address] [id number] [place] [address] Jun, [facility] [place] [facility] [address] [id number] [place] [address] May, [facility] [place] [facility] [address] [id number] [place] [address] May, [facility] [place] [facility] [address] [id number] [place] [address] May, [facility] [place] [facility] [address] [id number] [place] [address] May, [facility] [place] [facility] [address] [id number] [place] [address] May, [facility] [place] [facility] [address] [id number] [place] [address] May, [facility] [place] [facility] [address] [id number] [place] [address] May, [facility] [place] [facility] [address] [id number] [place] [address] May, [facility] [place] [facility] [address] [id number] [place] [address] 18 May, 2014 [facility] [place] [facility] [address] [id number] [place] [address] 15 May, 2014 [facility] [place] [facility] [address] [id number] [place] [address] 15 May, 2014 [facility] [place] [facility] [address] [id number] [place] [address] 17 Apr, 2014 [facility] [place] [facility] [address] [id number] [place] [address] Apr, [facility] [place] [facility] [address] [id number] [place] [address] Apr, [facility] [place] [facility] [address] [id number] [place] [address] Apr, [facility] [place] [facility] [address] [id number] [place] [address] Mar, [facility] [place] [facility] [address] [id number] [place] [address] Mar, [facility] [place] [facility] [address] [id number] [place] [address] Mar, [facility] [place] [facility] [address] [facility] [id number] [place] [address] Mar, [facility] [place] [facility] [address] [facility] [id number] [place] [address] Feb, [facility] [place] [facility] [address] [id number] [place] [address] 23 Feb, 2014 [facility] [place] [facility] [address] [facility] [id number] [place] [address] Feb, [facility] [place] [facility] [address] [id number] [place] [address] Feb, [facility] [place] [facility] [address] [id number] [place] [address] 16 Feb, 2014 [facility] [place] [facility] [address] [id number] [place] [address] Feb, [facility] [place] [facility] [address] [id number] [place] [address] Jan, [facility] [place] [facility] [address] [facility] [id number] [place] [address] Jan, [facility] [place] [facility] [address] [id number] [place] [address] Jan, [facility] [place] [facility] [address] [id number] [place] [address] Jan, [facility] [place] [facility] [address] [id number] [place] [address] Jan, [facility] [place] [facility] [address] [facility] [id number] [place] [address] Jan, [facility] [place] [facility] [address] [id number] [place] [address] Dec, [facility] [place] [facility] [address] [id number] [place] [address] Dec, [facility] [place] [facility] [address] [id number] [place] [address] Nov, [facility] [place] [facility] [address] [facility] [id number] [place] [address] Nov, [facility] [place] [facility] [address] [id number] [place] [address] Nov, [facility] [place] [facility] [address] [id number] [place] [address] Nov, [facility] [place] [facility] [address] [id number] [place] [address] Nov, [facility] [place] [facility] [address] [facility] [id number] [place] [address] Nov, [facility] [place] [facility] [address] [id number] [place] [address] Nov, [facility] [place] [facility] [address] [id number] [place] [address] October, [facility] [place] [facility] [address] [id number] [place] [address] October, [facility] [place] [facility] [address] [id number] [place] [address] Sep, [facility] [place] [facility] [address] [id number] [place] [address] Sep, [facility] [place] [facility] [address] [id number] [place] [address] Sep, [facility] [place] [facility] [address] [id number] [place] [address] Sep, [facility] [place] [facility] [address] [id number] [place] [address] Sep, [facility] [place] [facility] [address] [id number] [place] [address] Sep, [facility] [place] [facility] [address] [id number] [place] [address] Sep, [facility] [place] [facility] [address] [id number] [place] [address] Sep, [facility] [place] [facility] [address] [id number] [place] [address] 16 Sep, 2013 [facility] [place] [facility] [address] [facility] [id number] [facility] [place] [place] [address] 14 Sep, 2013 [facility] [place] [facility] [address] [facility] [id number] [place] [address] 14 Sep, 2013 [facility] [place] [facility] [address] [id number] [facility] [place] [address] Sep, [facility] [place] [facility] [address] [facility] [id number] [place] [address] Sep, [facility] [place] [facility] [address] [facility] [id number] [facility] [place] [address] 08 Sep, 2013 [facility] [place] [facility] [address] [facility] [id number] [place] [address] Sep, [facility] [place] [facility] [address] [id number] [facility] [place] [place] [address] 24 Aug, 2013 [facility] [place] [facility] [address] [id number] [facility] [place] [address] 24 Aug, 2013 [facility] [place] [facility] [address] [id number] [facility] [place] [place] [address] 24 Aug, 2013 [facility] [place] [facility] [address] [id number] [facility] [place] [place] [address] 24 Aug, 2013 [facility] [place] [facility] [address] [id number] [place] [address] Aug, [facility] [place] [facility] [address] [id number] [place] [address] Aug, [facility] [place] [facility] [address] [id number] [facility] [place] [address] Aug, [facility] [place] [facility] [address] [id number] [place] [address] Aug, [facility] [place] [facility] [address] [id number] [place] [address] Aug, [facility] [place] [facility] [address] [id number] [facility] [place] [place] [address] Aug, [facility] [place] [facility] [address] [id number] [place] [address] Jun, [facility] [place] [facility] [address] [facility] [id number] [place] [address] Jun, [facility] [place] [facility] [address] [id number] [place] [address] Jun, [facility] [place] [facility] [address] [id number] [place] [address] Jun, [facility] [place] [facility] [address] [id number] [place] [address] Jun, [facility] [place] [facility] [address] [facility] [id number] [place] [address] Jun, [facility] [place] [facility] [address] [id number] [place] [address] Jun, [facility] [place] [facility] [address] [id number] [place] [address] Jun, [facility] [place] [facility] [address] [id number] [place] [address] Jun, [facility] [place] [facility] [address] [id number] [place] [address] Jun, [facility] [place] [facility] [address] [id number] [place] [address] Jun, [facility] [place] [facility] [address] [id number] [place] [address] Jun, [facility] [place] [facility] [address] [id number] [place] [address] Apr, [facility] [place] [facility] [address] [id number] [place] [address] Apr, [facility] [place] [facility] [address] [id number] [place] [address] Jan, [facility] [place] [facility] [address] [id number] [place] [address] Jan, [facility] [place] [facility] [address] [id number] [place] [address] Jan, [facility] [address] [id number] [place] [address] Jan, [facility] [address] [id number] [place] [address] Jan, [facility] [address] [id number] [place] [address] Jan, [facility] [address] [id number] [place] [address] Jan, [facility] [address] [place] [id number] Jan, [facility] [address] [id number] [place] [address] Dec, [facility] [address] [id number] [place] [address] Dec, [facility] [id number] [place] [address] Dec, [facility] [id number] [place] [address] Dec, [facility] [id number] [place] [address] Dec, [facility] [id number] [place] [address] Dec, [facility] [address] [id number] [place] [address] Dec, [facility] [address] [id number] [place] [address] Nov, [facility] [address] [id number] [place] [address] Nov, IMMUNIZATIONS No Known Immunizations SOCIAL HISTORY Never Assessed REASON FOR VISIT PLAN OF CARE VITAL SIGNS MEDICATIONS Unknown Medications RESULTS No Results PROCEDURES Procedure Date Ordered Result Body Site PROTHROMBIN TIME August 25, 2013 INSTRUCTIONS MEDICATIONS ADMINISTERED No Known Medications
== END 2019-10-21 15:53 | disposition home or self-care (01) ==
LOC: EDUNIT# 14:14 → ER FS 14:15
DX: J44.1 Chronic obstructive pulmonary disease with (acute) exacerbation (principal); I50.9 Heart failure, unspecified; E11.40 Type 2 diabetes mellitus with diabetic neuropathy, unspecified; K21.9 Gastro-esophageal reflux disease without esophagitis; F31.9 Bipolar disorder, unspecified; F20.9 Schizophrenia, unspecified; F90.9 Attention-deficit hyperactivity disorder, unspecified type; Z86.711 Personal history of pulmonary embolism; Z85.43 Personal history of malignant neoplasm of ovary; Z88.1 Allergy status to other antibiotic agents; Z88.8 Allergy status to other drugs, medicaments and biological substances; Z79.4 Long term (current) use of insulin; Z79.01 Long term (current) use of anticoagulants; Z79.52 Long term (current) use of systemic steroids; Z77.22 Contact with and (suspected) exposure to environmental tobacco smoke (acute) (chronic)
CPT/HCPCS: 36415; 71045; 80053; 85025; 94640

== ENCOUNTER 2019-11-16 16:08 | Emergency (ER) | payer MEDICAID ==
[~2019-11-16] VITALS: Ht 157.4 cm; Wt 141.8 kg
[~2019-11-16 16:08] MED LIST changes: +PRD50T PO; +RT-ALBUINH IH
[2019-11-16 16:21] VITALS: BP 135/85
[2019-11-16 16:35] LABS: BACTERIA,URINE NEGATIVE /HPF; BILIRUBIN,URINE NEGATIVE (NEGATIVE); CLARITY,URINE CLEAR; COLOR,URINE DARK YELLOW; GLUCOSE, URINE (UA) NEGATIVE (NEGATIVE); KETONES,URINE NEGATIVE (NEGATIVE); LEUKOCYTE ESTERASE ,URINE NEGATIVE (NEGATIVE); NITRITE,URINE NEGATIVE (NEGATIVE); PH,URINE 6.5 (5-9); PROTEIN,URINE NEGATIVE (NEGATIVE); WBC,URINE 0-2 /HPF
[2019-11-16 16:36] LABS: AMORPHOUS SEDIMENT,UR MOD AMOR URATES /LPF
[2019-11-16 16:38] LABS: AMPHETAMINE SCREEN, URINE NEGATIVE (NEGATIVE); BARBITURATE SCREEN URINE POSITIVE (NEGATIVE); BENZODIAZEPINES SCREEN URINE NEGATIVE (NEGATIVE); CANNABINOID SCREEN, URINE NEGATIVE (NEGATIVE); COCAINE SCREEN URINE NEGATIVE (NEGATIVE); METHADONE STAT NEGATIVE (NEGATIVE); METHAMPHETAMINE SCREEN URINE S NEGATIVE (NEGATIVE); OPIATE SCREEN URINE NEGATIVE (NEGATIVE); OXYCODONE STAT NEGATIVE (NEGATIVE); PROPOXYPHENE STAT NEGATIVE (NEGATIVE); TRICYCLIC ANTIDEPRESSANTS SCRE POSITIVE (NEGATIVE)
== END 2019-11-16 17:40 | disposition left against medical advice (07) ==
LOC: EDUNIT# 16:08 → ER FS 16:09
DX: M54.5 Low back pain (principal); G89.29 Other chronic pain
CPT/HCPCS: 80306; 81000; 99282

== ENCOUNTER 2020-01-22 20:04 | Emergency (ER) | payer MEDICAID ==
[~2020-01-22] VITALS: Ht 157 cm; Wt 131.0 kg
[2020-01-22] MEDS ORDERED: ONDANSETRON 4 MG (ZOFRAN) ORAL DISSOLVE TAB PO STA (20:50)
[2020-01-22] MEDS ORDERED: diphenhydrAMINE 50 MG/ML INJ (BENADRYL) IM STA (20:50)
[2020-01-22] MEDS ORDERED: KETOROLAC 60 MG/2 ML VIAL IM STA (20:50)
[2020-01-22] MEDS ORDERED: fentaNYL INJECTION 100 MCG/2 ML AMP IM STA (20:50)
[2020-01-22] MEDS ORDERED: ONDA4TAB11 PO (20:57)
--- NOTE | 2020-01-22 20:57 | ED Headache ---
General Chief Complaint: Head/Cervical Problems Stated Complaint: MIGRAINE,NAUSEA,DIZZY Nursing Triage Note: Patient states she began experiencing a migraine since 0800 this morning. She advised she took tylenol at that time but has not taken anything since. She states she was nauseated at dinner and nothing has improved. Nursing Sepsis Screen: No Definite Risk Source: patient History of Present Illness Date Seen by Provider: Jan 22, 2020 Time Seen by Provider: 20:21 Initial Comments 49-year-old female presenting with complaints of right-sided migraine headache. She states this feels like her typical headache. It came on around 8 AM this morning. It has been present all day. She has had nausea and did have one episode of vomiting. She feels like headache is starting to spread to the left side. She tried Tylenol earlier and has tried some caffeine along with it. She continues to have headache and was feeling dizzy with it. She does have p hotophobia with this. She denies any fever or chills. She has no new numbness or tingling. There is no neck rigidity. she denies any trauma or head injury Allergies and Home Medications Allergies Coded Allergies: doxycycline (Unverified Allergy, Mild, nauseated, 08/01/09) spinach (Unverified Allergy, Mild, 08/01/09) alprazolam (Verified Allergy, Unknown, 07/18/19) diazepam (Verified Allergy, Unknown, 07/18/19) sumatriptan (Verified Allergy, Unknown, 07/18/19) Home Medications Albuterol Sulfate 1 Puff Puff, 2 PUFF IH Q4H 1 PUFF = 90 MCG Prescribed by: ALBA FELTON on 10/21/19 1526 Atorvastatin 20 Mg Tablet, 20 MG PO HS, (Reported) Azithromycin 250 Mg Tablet, 250 MG PO UD TAKE 2 TABLETS ON DAY ONE THEN TAKE 1 TABLET DAILY FOR FOUR MORE DAYS Prescribed by: FIFI WALKER on 07/18/19 0851 Cephalexin Monohydrate 500 Mg Capsule, 1 EACH PO QID, (Reported) Ciprofloxacin 500 Mg Tablet, 1 TAB PO BID FOR INFECTION Prescribed by: BRAULIO NASH on 04/24/13 2101 Furosemide 40 Mg Tablet, 1 EACH PO BID, (Reported) PT TAKES 40MG PO BID Gabapentin 600 Mg Tab, 600 MG PO QID, (Reported) Haloperidol 10 Mg Tablet, 10 MG PO TID Prescribed by: FIFI WALKER on 07/18/19 0851 Hum Insulin Nph/Reg Insulin Hm 10 Ml Vial, 15 UNITS SQ TID, (Reported) Insulin Glargine,Hum.rec.anlog 300 Unit/3 Ml Insuln.pen, 10 UNITS SQ HS Prescribed by: NNEKA ROBINS on 12/14/12 1141 Ipratropium [place] 0.5 Mg/2.5 Ml Nebu, 0.5 MG IH Q6H PRN, (Reported) Ipratropium/Albuterol Sulfate 4 Gm Aer.w.adap, 1 PUFF IH QID, (Reported) Loratadine 10 Mg Tablet, 10 MG PO DAILY, (Reported) Lurasidone Hcl 80 Mg Tablet, 80 MG PO HS, (Reported) Lurasidone Hcl 40 Mg Tablet, 40 MG PO DAILY, (Reported) TAKES IN AM DAILY Meclizine Hcl 25 Mg Tablet, 1 EACH PO TID PRN, (Reported) Meloxicam 7.5 Mg Tablet, 7.5 MG PO DAILY, (Reported) Nitrofurantoin/Nitrofuran Mac 100 Mg Capsule, 100 MG PO BID Prescribed by: GUALBERTO DOUGHERTY on 04/14/131755 Nystatin 1 Each Powder.ea., 0 TOP BID PRN SPRINKLE ON AFFECTED AREA Prescribed by: GUALBERTO DOUGHERTY on 04/14/131754 Olanzapine 10 Mg Tab, 10 MG PO BID PRN for ANXIETY, (Reported) Ondansetron 4 Mg Tab.rapdis, 4 MG PO Q6H PRN for NAUSEA/VOMITING Prescribed by: TASH ALARCON on 01/22/202056 Oxcarbazepine 150 Mg Tablet, 300 MG PO DAILY, (Reported) Oxycodone HCl/Acetaminophen 1 Each Tablet, 1 EACH PO Q4H PRN for PAIN-SEVERE (8- 10) Prescribed by: TASH ALARCON on 05/31/19 005 Oxycodone HCl/Acetaminophen 1 Each Tablet, 1 TAB PO Q6H PRN for PAIN-SEVERE (8- 10) Prescribed by: TASH ALARCON on 07/22/19 0157 Paroxetine Hcl 20 Mg Tablet, 20 MG PO HS, (Reported) Potassium Chloride 10 Meq Tab.prt.sr, 1 EACH PO BID WITH MEALS, (Reported) Prednisone 20 Mg Tab, 40 MG PO DAILY Prescribed by: TASH ALARCON on 07/22/19 0157 Prednisone 50 Mg Tab, 50 MG PO DAILY Prescribed by: ALBA FELTON on 10/21/19 1526 Sumatriptan 10 Gm Powder, 100 MG PO BID PRN, (Reported) Tiotropium [place] 1 Inh Aerp, 1 CAP IH DAILY, (Reported) 18 MCG CAPS/ONE INHALED DAILY Topiramate 100 Mg Tab, 200 MG PO HS, (Reported) PT TAKES 200MG TWICE DAILY AND 100MG AT NOON Topiramate 100 Mg Tab, 100 MG PO TID, (Reported) Tramadol Hcl 50 Mg Tablet, 100 MG PO Q6H PRN, (Reported) Trazodone HCl 100 Mg Tablet, 200 MG PO HS Prescribed by: FIFI WALKER on 07/18/19 0851 Trazodone Hcl 100 Mg Tab, 200 MG PO HS, (Reported) Warfarin Sodium 10 Mg Tablet, 10 MG PO DAILY@1800 Prescribed by: NNEKA ROBINS on 12/14/12 1141 Patient Home Medication List Home Medication List Reviewed: Yes Review of Systems Review of Systems Constitutional: No chills; dizziness; No fever Eyes: Photophobia Ears, Nose, Mouth, Throat: denies ear pain, denies ear discharge, denies nose discharge (some nasal congestion), denies epistaxis Respiratory: cough (chronic), short of breath (chronic from her COPD) Cardiovascular: no symptoms reported Gastrointestinal: nausea, vomiting (times one) Genitourinary: no symptoms reported Musculoskeletal: back pain (chronic) Skin: No rash Psychiatric/Neurological: See HPI Past Rbhfdyw-Sgteot-Ecxoww Hx Past Med/Social Hx: Reviewed Nursing Past Med/Soc Hx Patient Social History Alcohol Use: Denies Use Recreational Drug Use: No Smoking Status: Current Everyday Smoker Type Used: Cigarettes 2nd Hand Smoke Exposure: Yes Recent Foreign Travel: No Contact w/Someone Who Travel: No Recent Infectious Disease Expo: No Recent Hopitalizations: No Immunizations Up To Date Date of Pneumonia Vaccine: Dec 14, 2012 Date of Influenza Vaccine: Mar 04, 2013 Seasonal Allergies Seasonal Allergies: No Past Medical History Surgeries: Yes (HIP, suprapubic catheter, Dental) Appendectomy, Gallbladder, Hysterectomy, Orthopedic Respiratory: Yes Asthma, Pneumonia, Chronic Bronchitis, Pulmonary Embolism, COPD, Emphysema Cardiac: Yes (CHF) Neurological: Yes Neuropathy : No 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 Disorders: No 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 Sexually Transmitted Disease: No HIV/AIDS: No Genitourinary: Yes Kidney Stones, Neurogenic Bladder, UTI-Chronic Gastrointestinal: Yes Abdominal Hernia, Gastroesophageal Reflux, Chronic Constipation, Irritable Bowel Musculoskeletal: Yes Arthritis, Fibromyalgia, Back Injury, Chronic Back Pain, Fractures, Spasms Endocrine: Yes Diabetes, Insulin dep, Hypothyroidsim HEENT: No Hearing Impairment: Hard of Hearing Cancer: Yes Ovarian Psychosocial: Yes ADD/ADHD, Bipolar, Schizophrenia Integumentary: No Blood Disorders: No Family Medical History No Pertinent Family Hx Physical Exam Vital Signs Vital Signs - First Documented 01/22/20 20:16 Temp 37.3 Pulse 100 Resp 22 B/P (MAP) 141/80 (100) Pulse Ox 96 O2 Delivery Nasal Cannula O2 Flow Rate 2.00 Capillary Refill : Less Than 3 Seconds Height, Weight, BMI Height: '" Weight: 275lbs. oz. [id number]; 53.00 BMI Method:Stated General Appearance: WD/WN, mild distress, obese HEENT: PERRL/EOMI, pharynx normal, photophobia, other (tender to palpation over right frontal sinus) Neck: non-tender, full range of motion, supple, normal inspection Cardiovascular: normal peripheral pulses, regular rate, rhythm Respiratory: chest non-tender, no respiratory distress, accessory muscle use, rhonchi, wheezing Gastrointestinal: normal bowel sounds, non tender, soft, no pulsatile mass Psychiatric: alert, oriented x 3 Crainal Nerves: normal hearing, normal speech, PERRL Skin: normal color, warm/dry Progress/Results/Core Measures Results/Orders My Orders Orders - TASH ALARCON MD Ketorolac Injection (Toradol Injection) (01/22/20 20:50) Fentanyl Injection (Sublimaze Injection (01/22/20 20:50) Ondansetron Oral Dissolve Tab (Zofran (01/22/20 20:50) Diphenhydramine Injection (Benadryl Inje (01/22/20 20:50) Vital Signs/I&O 01/22/20 8 20:16 21:44 Temp 37.3 Pulse 100 97 Resp 22 16 B/P (MAP) 141/80 (100) 122/71 Pulse Ox 96 97 O2 Delivery Nasal Cannula Nasal Cannula O2 Flow Rate 2.00 2.00 Blood Pressure Mean: 100 Progress Progress Note : Progress Note Patient states this feels like her typical migraine headache. Will treat with Toradol, Benadryl both IM, Zofran ODT, a dose of fentanyl since she reports having not responded Toradol alone for her last migraine and having to come in for repeat doses of injections. Encouraged to follow up with clinic and see about medication for her migraines. In the meantime we'll use Tylenol with caffeinated drinks. Prescribed a few Zofran ODT if needed for nausea at home. Departure Impression Primary Impression: Migraine Qualified Codes: G43.909 - Migraine, unspecified, not intractable, without status migrainosus Additional Impression: Frontal sinus pain Disposition: HOME, SELF-CARE Condition: Stable Departure-Patient Inst. Decision time for Depature: 20:56 Referrals: JAILENE DANIEL MD (PCP/Family) Primary Care Physician Patient Instructions: Migraine Headache (DC) Add. Discharge Instructions: Try resting in a cool dark room. Try taking acetaminophen with a caffeine containing drink. Use the dissolving nausea medicine to help keep your stomach settled. Check back with Dr. Daniel for continued concerns All discharge instructions reviewed with patient and/or family. Voiced understanding. Scripts Ondansetron (Ondansetron Odt) 4 Mg Tab.rapdis 4 MG PO Q6H PRN for NAUSEA/VOMITING for 2 Days, #8 TAB 0 Refills Prov: TASH ALARCON MD 01/22/20 TASH ALARCON MD Jan 22, 2020 20:57
[2020-01-22 21:44] VITALS: BP 122/71
== END 2020-01-22 21:45 | disposition home or self-care (01) ==
LOC: EDUNIT# 20:04 → ER FS 20:05 → ER 21:45
DX: G43.909 Migraine, unspecified, not intractable, without status migrainosus (principal); J01.10 Acute frontal sinusitis, unspecified; J43.9 Emphysema, unspecified; E11.40 Type 2 diabetes mellitus with diabetic neuropathy, unspecified; I50.9 Heart failure, unspecified; K21.9 Gastro-esophageal reflux disease without esophagitis; K58.1 Irritable bowel syndrome with constipation; M79.7 Fibromyalgia; G89.29 Other chronic pain; M54.9 Dorsalgia, unspecified; F20.9 Schizophrenia, unspecified; F31.9 Bipolar disorder, unspecified; F17.210 Nicotine dependence, cigarettes, uncomplicated; Z88.8 Allergy status to other drugs, medicaments and biological substances; Z88.1 Allergy status to other antibiotic agents; Z86.711 Personal history of pulmonary embolism; Z85.43 Personal history of malignant neoplasm of ovary; Z79.4 Long term (current) use of insulin; Z79.52 Long term (current) use of systemic steroids; Z79.01 Long term (current) use of anticoagulants
CPT/HCPCS: 99284

== ENCOUNTER 2020-01-24 21:22 | Emergency (ER) | payer MEDICAID ==
[~2020-01-24] VITALS: Ht 157.5 cm; Wt 140.5 kg
[~2020-01-24 21:22] MED LIST changes: +ONDA4TAB11 PO
[2020-01-24 21:25] VITALS: BP 121/68
--- NOTE | 2020-01-24 21:31 | ED Lower Extremity ---
General Stated Complaint: LEFT KNEE PAIN Source: patient Exam Limitations: no limitations History of Present Illness Date Seen by Provider: Jan 24, 2020 Time Seen by Provider: 21:31 Initial Comments 49-year-old female brought in by EMS due to Pain. Patient reports that started last night around midnight. She does not recall any injury or increased activity . The pain is in the left lower leg in the lateral aspect of the posterior knee and the lateral aspect of the leg. The pain gets worse with resistance of extension and flexion of her foot, or ambulate on it. She does not have any increased swelling or warmth. She does have a prior history of blood clots however she is currently on xarelto and taken as directed. Patient reports she's tried her home pain medication with minimal relief. Patient is here due to the pain. Allergies and Home Medications Allergies Coded Allergies: doxycycline (Unverified Allergy, Mild, nauseated, 08/01/09) spinach (Unverified Allergy, Mild, 08/01/09) alprazolam (Verified Allergy, Unknown, 07/18/19) diazepam (Verified Allergy, Unknown, 07/18/19) sumatriptan (Verified Allergy, Unknown, 07/18/19) Home Medications Albuterol Sulfate 1 Puff Puff, 2 PUFF IH Q4H 1 PUFF = 90 MCG Prescribed by: ALBA FELTON on 10/21/19 1526 Atorvastatin 20 Mg Tablet, 20 MG PO HS, (Reported) Azithromycin 250 Mg Tablet, 250 MG PO UD TAKE 2 TABLETS ON DAY ONE THEN TAKE 1 TABLET DAILY FOR FOUR MORE DAYS Prescribed by: FIFI WALKER on 07/18/19 0851 Cephalexin Monohydrate 500 Mg Capsule, 1 EACH PO QID, (Reported) Ciprofloxacin 500 Mg Tablet, 1 TAB PO BID FOR INFECTION Prescribed by: BRAULIO NASH on 04/24/13 2101 Furosemide 40 Mg Tablet, 1 EACH PO BID, (Reported) PT TAKES 40MG PO BID Gabapentin 600 Mg Tab, 600 MG PO QID, (Reported) Haloperidol 10 Mg Tablet, 10 MG PO TID Prescribed by: FIFI WALKER on 07/18/19 0851 Hum Insulin Nph/Reg Insulin Hm 10 Ml Vial, 15 UNITS SQ TID, (Reported) Insulin Glargine,Hum.rec.anlog 300 Unit/3 Ml Insuln.pen, 10 UNITS SQ HS Prescribed by: NNEKA ROBINS on 12/14/12 1141 Ipratropium [place] 0.5 Mg/2.5 Ml Nebu, 0.5 MG IH Q6H PRN, (Reported) Ipratropium/Albuterol Sulfate 4 Gm Aer.w.adap, 1 PUFF IH QID, (Reported) Loratadine 10 Mg Tablet, 10 MG PO DAILY, (Reported) Lurasidone Hcl 80 Mg Tablet, 80 MG PO HS, (Reported) Lurasidone Hcl 40 Mg Tablet, 40 MG PO DAILY, (Reported) TAKES IN AM DAILY Meclizine Hcl 25 Mg Tablet, 1 EACH PO TID PRN, (Reported) Meloxicam 7.5 Mg Tablet, 7.5 MG PO DAILY, (Reported) Nitrofurantoin/Nitrofuran Mac 100 Mg Capsule, 100 MG PO BID Prescribed by: GUALBERTO DOUGHERTY on 04/14/131755 Nystatin 1 Each Powder.ea., 0 TOP BID PRN SPRINKLE ON AFFECTED AREA Prescribed by: GUALBERTO DOUGHERTY on 04/14/131754 Olanzapine 10 Mg Tab, 10 MG PO BID PRN for ANXIETY, (Reported) Ondansetron 4 Mg Tab.rapdis, 4 MG PO Q6H PRN for NAUSEA/VOMITING Prescribed by: TASH ALARCON on 01/22/202056 Oxcarbazepine 150 Mg Tablet, 300 MG PO DAILY, (Reported) Oxycodone HCl/Acetaminophen 1 Each Tablet, 1 EACH PO Q4H PRN for PAIN-SEVERE (8- 10) Prescribed by: TASH ALARCON on 05/31/19 0058 Oxycodone HCl/Acetaminophen 1 Each Tablet, 1 TAB PO Q6H PRN for PAIN-SEVERE (8- 10) Prescribed by: TASH SANDOVALRT on 07/22/19 015 Paroxetine Hcl 20 Mg Tablet, 20 MG PO HS, (Reported) Potassium Chloride 10 Meq Tab.prt.sr, 1 EACH PO BID WITH MEALS, (Reported) Prednisone 20 Mg Tab, 40 MG PO DAILY Prescribed by: TASH ALARCON on 07/22/19156 Prednisone 50 Mg Tab, 50 MG PO DAILY Prescribed by: ALBA FELTON on 10/21/19 1526 Sumatriptan 10 Gm Powder, 100 MG PO BID PRN, (Reported) Tiotropium [place] 1 Inh Aerp, 1 CAP IH DAILY, (Reported) 18 MCG CAPS/ONE INHALED DAILY Topiramate 100 Mg Tab, 200 MG PO HS, (Reported) PT TAKES 200MG TWICE DAILY AND 100MG AT NOON Topiramate 100 Mg Tab, 100 MG PO TID, (Reported) Tramadol Hcl 50 Mg Tablet, 100 MG PO Q6H PRN, (Reported) Trazodone HCl 100 Mg Tablet, 200 MG PO HS Prescribed by: FIFI AWLKER on 07/18/19 0851 Trazodone Hcl 100 Mg Tab, 200 MG PO HS, (Reported) Warfarin Sodium 10 Mg Tablet, 10 MG PO DAILY@1800 Prescribed by: NNEKA ROBINS on 12/14/12 1141 Patient Home Medication List Home Medication List Reviewed: Yes Review of Systems Constitutional: no symptoms reported EENTM: no symptoms reported Respiratory: no symptoms reported Cardiovascular: no symptoms reported Gastrointestinal: no symptoms reported Genitourinary: no symptoms reported Musculoskeletal: see HPI Skin: no symptoms reported Psychiatric/Neurological: No Symptoms Reported Past Gqivzju-Wuhylv-Zhtsoc Hx Past Med/Social Hx: Reviewed Nursing Past Med/Soc Hx Patient Social History Type Used: Cigarettes 2nd Hand Smoke Exposure: Yes Recent Foreign Travel: No Contact w/Someone Who Travel: No Recent Hopitalizations: No Immunizations Up To Date Date of Pneumonia Vaccine: Dec 14, 2012 Date of Influenza Vaccine: Mar 04, 2013 Seasonal Allergies Seasonal Allergies: No Past Medical History Surgeries: Yes (HIP, suprapubic catheter, Dental) Appendectomy, Gallbladder, Hysterectomy, Orthopedic Respiratory: Yes Asthma, Pneumonia, Chronic Bronchitis, Pulmonary Embolism, COPD, Emphysema Cardiac: Yes (CHF) Neurological: Yes Neuropathy 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 Disorders: No 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: Hysterectomy Sexually Transmitted Disease: No HIV/AIDS: No Genitourinary: Yes Kidney Stones, Neurogenic Bladder, UTI-Chronic Gastrointestinal: Yes Abdominal Hernia, Gastroesophageal Reflux, Chronic Constipation, Irritable Bowel Musculoskeletal: Yes Arthritis, Fibromyalgia, Back Injury, Chronic Back Pain, Fractures, Spasms Endocrine: Yes Diabetes, Insulin dep, Hypothyroidsim HEENT: No Hearing Impairment: Hard of Hearing Cancer: Yes Ovarian Psychosocial: Yes ADD/ADHD, Bipolar, Schizophrenia Integumentary: No Blood Disorders: No Family Medical History No Pertinent Family Hx Physical Exam Vital Signs Capillary Refill : Height, Weight, BMI Height: '" Weight: 275lbs. oz. 124.669007gj; 53.00 BMI Method:Stated General Appearance: WD/WN, no apparent distress, obese (morbid) Neck: supple Cardiovascular: normal peripheral pulses, regular rate, rhythm Respiratory: chest non-tender Gastrointestinal: non tender, soft Hips: bilateral hip non-tender Legs: left leg other (patient with mild tenderness to palpation on the left lateral calf. No posterior calf tenderness. She does have some mild left posterior knee tenderness, no swelling erythema or warmth) Ankles: bilateral ankle non-tender Neurologic/Psychiatric: alert, normal mood/affect, oriented x 3 Skin: normal color Progress/Results/Core Measures Results/Orders My Orders Orders - AMBREEN LEGER DO Ketorolac Injection (Toradol Injection) (01/24/20 21:32) Orphenadrine Inj (Ed Only) (Norflex Inje (01/24/20 21:32) Progress Progress Note : Progress Note Performed a bedside ultrasound that showed good view of the popliteal vein with good compression to follow partially up the thigh. I did discuss with her that she would still need to follow-up for an outpatient ultrasound for an official rule out of a DVT but also look for a popliteal cyst. Patient is currently on Xarelto which would be the treatment for a DVT. Patient's physical exam is more consistent with an muscle strain. I will prescribe her some Flexeril that she can start in the morning. We'll give her Toradol and Norflex shot this evening in the ER. Patient is stable and will be discharged home Departure Impression Primary Impression: Strain of left calf muscle Disposition: HOME, SELF-CARE Condition: Stable Departure-Patient Inst. Referrals: JAILENE DANIEL MD (PCP/Family) Primary Care Physician Patient Instructions: Muscle Strain (DC) Add. Discharge Instructions: Follow-up first thing Sunday morning with your primary care provider to arrange for an outpatient ultrasound to further evaluate for cyst in to ensure there is no small DVT. Continue taking Xarelto as prescribed Scripts Cyclobenzaprine HCl (Cyclobenzaprine HCl) 10 Mg Tablet 10 MG PO Q8H PRN for SPASMS, #15 TAB 0 Refills Prov: RENE LEGERR L DO 01/24/20 RENE LEGERR L DO Jan 24, 2020 21:31
[2020-01-24] MEDS ORDERED: ORPHENADRINE 60 MG/2 ML (NORFLEX) AMP (ED ONLY) IM STA (21:32)
[2020-01-24] MEDS ORDERED: KETOROLAC 60 MG/2 ML VIAL IM STA (21:32)
[2020-01-24] MEDS ORDERED: CYCL10TA9 PO (21:46)
== END 2020-01-24 21:50 | disposition home or self-care (01) ==
LOC: EDUNIT# 21:22 → ER FS 21:27
DX: S86.912A Strain of unspecified muscle(s) and tendon(s) at lower leg level, left leg, initial encounter (principal); J43.9 Emphysema, unspecified; E11.40 Type 2 diabetes mellitus with diabetic neuropathy, unspecified; I50.9 Heart failure, unspecified; K21.9 Gastro-esophageal reflux disease without esophagitis; K58.1 Irritable bowel syndrome with constipation; F31.9 Bipolar disorder, unspecified; F20.9 Schizophrenia, unspecified; M79.7 Fibromyalgia; G89.29 Other chronic pain; M54.9 Dorsalgia, unspecified; Z79.01 Long term (current) use of anticoagulants; Z88.1 Allergy status to other antibiotic agents; Z88.8 Allergy status to other drugs, medicaments and biological substances; Z86.711 Personal history of pulmonary embolism; Z85.43 Personal history of malignant neoplasm of ovary; Z79.4 Long term (current) use of insulin; Z79.52 Long term (current) use of systemic steroids; Z77.22 Contact with and (suspected) exposure to environmental tobacco smoke (acute) (chronic); X58.XXXA Exposure to other specified factors, initial encounter
CPT/HCPCS: 99284

== ENCOUNTER 2020-01-29 17:00 | Emergency (ER) | payer MEDICAID ==
[~2020-01-29] VITALS: Ht 167.7 cm; Wt 140.6 kg
[~2020-01-29 17:00] MED LIST changes: +CYCL10TA9 PO
[2020-01-29] MEDS ORDERED: KETOROLAC 60 MG/2 ML VIAL IM ONE (17:15)
[2020-01-29] MEDS ORDERED: diphenhydrAMINE 50 MG/ML INJ (BENADRYL) IM ONE (17:15)
[2020-01-29] MEDS ORDERED: METOCLOPRAMIDE INJ 10 MG/2 ML (REGLAN) IM ONE (17:15)
--- NOTE | 2020-01-29 17:18 | ED Headache ---
General Chief Complaint: Head/Cervical Problems Stated Complaint: MIGRIANE Source: patient Exam Limitations: no limitations History of Present Illness Date Seen by Provider: Jan 29, 2020 Time Seen by Provider: 17:08 Initial Comments The patient is an obese 49-year-old female very well-known to this emergency department who presents for evaluation of migraine headache over the last few days. She states is the same exact migraine she has every time and she denies fevers or chills, vomiting, vision changes, focal weakness or numbness, recent head trauma, neck pain or neck stiffness. She is alert and oriented 4, calm, and appears to be in no distress. She states that she took her oxycodone (which she takes for her various chronic pain) and Tylenol at home with little relief. Timing/Duration: other (few days) Severity/Quality: moderate Location: frontal Prior Headaches/Recent Trauma: no recent headache/trauma Modifying Factors: improves with exposure to light Associated Symptoms: nausea/vomiting (nausea, no vomiting) Allergies and Home Medications Allergies Coded Allergies: doxycycline (Unverified Allergy, Mild, nauseated, 08/01/09) spinach (Unverified Allergy, Mild, 08/01/09) alprazolam (Verified Allergy, Unknown, 07/18/19) diazepam (Verified Allergy, Unknown, 07/18/19) sumatriptan (Verified Allergy, Unknown, 07/18/19) Home Medications Albuterol Sulfate 1 Puff Puff, 2 PUFF IH Q4H 1 PUFF = 90 MCG Prescribed by: ALBA FELTON on 10/21/19 1526 Atorvastatin 20 Mg Tablet, 20 MG PO HS, (Reported) Azithromycin 250 Mg Tablet, 250 MG PO UD TAKE 2 TABLETS ON DAY ONE THEN TAKE 1 TABLET DAILY FOR FOUR MORE DAYS Prescribed by: FIFI WALKER on 07/18/19 0851 Cephalexin Monohydrate 500 Mg Capsule, 1 EACH PO QID, (Reported) Ciprofloxacin 500 Mg Tablet, 1 TAB PO BID FOR INFECTION Prescribed by: BRAULIO NASH on 04/24/13 210 Cyclobenzaprine HCl 10 Mg Tablet, 10 MG PO Q8H PRN for SPASMS Prescribed by: AMBREEN LEGER on 01/24/20 214 Furosemide 40 Mg Tablet, 1 EACH PO BID, (Reported) PT TAKES 40MG PO BID Gabapentin 600 Mg Tab, 600 MG PO QID, (Reported) Haloperidol 10 Mg Tablet, 10 MG PO TID Prescribed by: FIFI WALKER on 07/18/19 0851 Hum Insulin Nph/Reg Insulin Hm 10 Ml Vial, 15 UNITS SQ TID, (Reported) Insulin Glargine,Hum.rec.anlog 300 Unit/3 Ml Insuln.pen, 10 UNITS SQ HS Prescribed by: NNEKA ROBINS on 12/14/12 1141 Ipratropium [place] 0.5 Mg/2.5 Ml Nebu, 0.5 MG IH Q6H PRN, (Reported) Ipratropium/Albuterol Sulfate 4 Gm Aer.w.adap, 1 PUFF IH QID, (Reported) Loratadine 10 Mg Tablet, 10 MG PO DAILY, (Reported) Lurasidone Hcl 80 Mg Tablet, 80 MG PO HS, (Reported) Lurasidone Hcl 40 Mg Tablet, 40 MG PO DAILY, (Reported) TAKES IN AM DAILY Meclizine Hcl 25 Mg Tablet, 1 EACH PO TID PRN, (Reported) Meloxicam 7.5 Mg Tablet, 7.5 MG PO DAILY, (Reported) Nitrofurantoin/Nitrofuran Mac 100 Mg Capsule, 100 MG PO BID Prescribed by: GUALBERTO DOUGHERTY on 04/14/131755 Nystatin 1 Each Powder.ea., 0 TOP BID PRN SPRINKLE ON AFFECTED AREA Prescribed by: GUALBERTO DOUGHERTY on 04/14/131754 Olanzapine 10 Mg Tab, 10 MG PO BID PRN for ANXIETY, (Reported) Ondansetron 4 Mg Tab.rapdis, 4 MG PO Q6H PRN for NAUSEA/VOMITING Prescribed by: TASH ALARCON on 01/22/202056 Oxcarbazepine 150 Mg Tablet, 300 MG PO DAILY, (Reported) Oxycodone HCl/Acetaminophen 1 Each Tablet, 1 EACH PO Q4H PRN for PAIN-SEVERE (8- 10) Prescribed by: TASH ALARCON on 05/31/19 005 Oxycodone HCl/Acetaminophen 1 Each Tablet, 1 TAB PO Q6H PRN for PAIN-SEVERE (8- 10) Prescribed by: TASH ALARCON on 07/22/19 0157 Paroxetine Hcl 20 Mg Tablet, 20 MG PO HS, (Reported) Potassium Chloride 10 Meq Tab.prt.sr, 1 EACH PO BID WITH MEALS, (Reported) Prednisone 20 Mg Tab, 40 MG PO DAILY Prescribed by: TASH ALARCON on 07/22/19 0157 Prednisone 50 Mg Tab, 50 MG PO DAILY Prescribed by: ALBA FELTON on 10/21/19 1526 Sumatriptan 10 Gm Powder, 100 MG PO BID PRN, (Reported) Tiotropium [place] 1 Inh Aerp, 1 CAP IH DAILY, (Reported) 18 MCG CAPS/ONE INHALED DAILY Topiramate 100 Mg Tab, 200 MG PO HS, (Reported) PT TAKES 200MG TWICE DAILY AND 100MG AT NOON Topiramate 100 Mg Tab, 100 MG PO TID, (Reported) Tramadol Hcl 50 Mg Tablet, 100 MG PO Q6H PRN, (Reported) Trazodone HCl 100 Mg Tablet, 200 MG PO HS Prescribed by: FIFI WALKER on 07/18/19 0851 Trazodone Hcl 100 Mg Tab, 200 MG PO HS, (Reported) Warfarin Sodium 10 Mg Tablet, 10 MG PO DAILY@1800 Prescribed by: NNEKA ROBINS on 12/14/12 1141 Patient Home Medication List Home Medication List Reviewed: Yes Review of Systems Review of Systems Constitutional: no symptoms reported Eyes: No Symptoms Reported Ears, Nose, Mouth, Throat: no symptoms reported Respiratory: no symptoms reported Cardiovascular: no symptoms reported Gastrointestinal: no symptoms reported Genitourinary: no symptoms reported Musculoskeletal: no symptoms reported Skin: no symptoms reported Psychiatric/Neurological: Headache All Other Systems Reviewed Negative Unless Noted: Yes Past Trxgwhe-Bwbxgg-Pftaco Hx Past Med/Social Hx: Reviewed Nursing Past Med/Soc Hx Patient Social History Alcohol Use: Denies Use Recreational Drug Use: No Type Used: Cigarettes 2nd Hand Smoke Exposure: Yes Recent Foreign Travel: No Contact w/Someone Who Travel: No Recent Hopitalizations: No Physical Abuse: No Sexual Abuse: No Mistreated: No Fear: No Immunizations Up To Date Date of Pneumonia Vaccine: Dec 14, 2012 Date of Influenza Vaccine: Mar 04, 2013 Seasonal Allergies Seasonal Allergies: No Past Medical History Surgeries: Yes (HIP, suprapubic catheter, Dental) Appendectomy, Gallbladder, Hysterectomy, Orthopedic Respiratory: Yes Asthma, Pneumonia, Chronic Bronchitis, Pulmonary Embolism, COPD, Emphysema Cardiac: Yes (CHF) Neurological: Yes Neuropathy 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 Disorders: No 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 [employer]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 Sexually Transmitted Disease: No HIV/AIDS: No Genitourinary: Yes Kidney Stones, Neurogenic Bladder, UTI-Chronic Gastrointestinal: Yes Abdominal Hernia, Gastroesophageal Reflux, Chronic Constipation, Irritable Bowel Musculoskeletal: Yes Arthritis, Fibromyalgia, Back Injury, Chronic Back Pain, Fractures, Spasms Endocrine: Yes Diabetes, Insulin dep, Hypothyroidsim HEENT: No Hearing Impairment: Hard of Hearing Cancer: Yes Ovarian Psychosocial: Yes ADD/ADHD, Bipolar, Schizophrenia Integumentary: No Blood Disorders: No Family Medical History No Pertinent Family Hx Physical Exam Vital Signs Capillary Refill : Height, Weight, BMI Height: '" Weight: 275lbs. oz. 124.720921rt; 56.00 BMI Method:Stated General Appearance: WD/WN, obese HEENT: PERRL/EOMI, pharynx normal Neck: non-tender, full range of motion, supple Cardiovascular: regular rate, rhythm, no edema, no JVD Respiratory: no respiratory distress, no accessory muscle use, wheezing (pt reports she chronically wheezes, is on home O2 for COPD ) Extremities: normal range of motion, normal inspection Psychiatric: alert, oriented x 3 [place] Nerves: normal hearing, normal speech, PERRL Coordination/Gait: normal gait Motor/Sensory: no motor deficit, no sensory deficit Skin: normal color, warm/dry Progress/Results/Core Measures Results/Orders My Orders Orders - KAYLEE GIVENS DO Metoclopramide Injection (Reglan Injecti (01/29/20 17:15) Diphenhydramine Injection (Benadryl Inje (01/29/20 17:15) Ketorolac Injection (Toradol Injection) (01/29/20 17:15) Progress Progress Note : Progress Note @1717 - the patient reports feeling better after the medications. No indication for imaging at this time. No red flags for serious headache etiology identified at this time. Advised the patient to follow-up with her PCP within the next 1-2 days and to return to the emergency Department immediately for new or worsening symptoms. Departure Impression Primary Impression: Migraine Disposition: 01 HOME, SELF-CARE Condition: Stable Departure-Patient Inst. Decision time for Depature: 17:17 Referrals: JAILENE DANIEL MD (PCP/Family) Primary Care Physician Patient Instructions: Migraine Headache (DC) Add. Discharge Instructions: Follow-up with your doctor in the next 1-2 days. Return to the emergency Depa rtment immediately for new or worsening symptoms. Take Tylenol home for pain relief as needed. Drink plenty of water. KAYLEE GIVENS DO Jan 29, 2020 17:17
[2020-01-29 17:46] VITALS: BP 147/68
[2020-01-30] MEDS ORDERED: BUTA1TAB9 PO (02:42)
== END 2020-01-29 17:46 | disposition home or self-care (01) ==
LOC: EDUNIT# 17:00 → ER FS 17:01
DX: G43.909 Migraine, unspecified, not intractable, without status migrainosus (principal); J43.9 Emphysema, unspecified; E11.40 Type 2 diabetes mellitus with diabetic neuropathy, unspecified; M79.7 Fibromyalgia; K58.1 Irritable bowel syndrome with constipation; I50.9 Heart failure, unspecified; G89.29 Other chronic pain; M54.9 Dorsalgia, unspecified; F20.9 Schizophrenia, unspecified; F31.9 Bipolar disorder, unspecified; Z85.43 Personal history of malignant neoplasm of ovary; Z88.1 Allergy status to other antibiotic agents; Z88.8 Allergy status to other drugs, medicaments and biological substances; Z79.4 Long term (current) use of insulin; Z79.52 Long term (current) use of systemic steroids; Z79.01 Long term (current) use of anticoagulants; Z77.22 Contact with and (suspected) exposure to environmental tobacco smoke (acute) (chronic)
CPT/HCPCS: 99284

== ENCOUNTER 2020-01-30 02:16 | Emergency (ER) | payer MEDICAID ==
[~2020-01-30] VITALS: Ht 157.4 cm; Wt 127.4 kg
[2020-01-30 02:16] VITALS: BP 161/90
[2020-01-30] MEDS ORDERED: morphine INJ 10 MG/ML 1ML (SYR OR VIAL) IM STA (02:25)
[2020-01-30] MEDS ORDERED: diphenhydrAMINE 50 MG/ML INJ (BENADRYL) IM ONE (02:30)
[2020-01-30] MEDS ORDERED: KETOROLAC 60 MG/2 ML VIAL IM ONE (02:30)
[2020-01-30] MEDS ORDERED: METOCLOPRAMIDE INJ 10 MG/2 ML (REGLAN) IM ONE (02:30)
--- NOTE | 2020-01-30 02:36 | ED Headache ---
General Chief Complaint: Head/Cervical Problems Stated Complaint: MIGRAINE Nursing Triage Note: Patient presents via EMS for complaints of a migraine for 4 days. Patient was seen in the ER yesterday for the same complaint. Patient states she was given 3 shots. Nursing Sepsis Screen: No Definite Risk Source: patient Exam Limitations: no limitations History of Present Illness Date Seen by Provider: Jan 30, 2020 Time Seen by Provider: 02:23 Initial Comments The patient is a 49-year-old female who presents for evaluation of a migraine headache. She was seen yesterday for a similar complaint and was given medications and stated that she was feeling better and went home. She denies head trauma, fevers or chills, vomiting, vision changes, focal weakness or numbness. She is alert and oriented 4, calm, and appears to be in no distress this time. She reports a history of migraines for many years. She states that she has had many headaches just like this one in the past. Timing/Duration: other (4 days) Severity/Quality: moderate Location: frontal Prior Headaches/Recent Trauma: no recent headache/trauma Modifying Factors: improves with exposure to light (makes it worse) Associated Symptoms: denies symptoms Allergies and Home Medications Allergies Coded Allergies: doxycycline (Unverified Allergy, Mild, nauseated, 08/01/09) spinach (Unverified Allergy, Mild, 08/01/09) alprazolam (Verified Allergy, Unknown, 07/18/19) diazepam (Verified Allergy, Unknown, 07/18/19) sumatriptan (Verified Allergy, Unknown, 07/18/19) Home Medications Albuterol Sulfate 1 Puff Puff, 2 PUFF IH Q4H 1 PUFF = 90 MCG Prescribed by: ALBA FELTON on 10/21/19 1526 Atorvastatin 20 Mg Tablet, 20 MG PO HS, (Reported) Azithromycin 250 Mg Tablet, 250 MG PO UD TAKE 2 TABLETS ON DAY ONE THEN TAKE 1 TABLET DAILY FOR FOUR MORE DAYS Prescribed by: FIFI WALKER on 07/18/19 0851 Cephalexin Monohydrate 500 Mg Capsule, 1 EACH PO QID, (Reported) Ciprofloxacin 500 Mg Tablet, 1 TAB PO BID FOR INFECTION Prescribed by: BRAULIO NASH on 04/24/13 2101 Cyclobenzaprine HCl 10 Mg Tablet, 10 MG PO Q8H PRN for SPASMS Prescribed by: AMBREEN LEGER on 01/24/206 Furosemide 40 Mg Tablet, 1 EACH PO BID, (Reported) PT TAKES 40MG PO BID Gabapentin 600 Mg Tab, 600 MG PO QID, (Reported) Haloperidol 10 Mg Tablet, 10 MG PO TID Prescribed by: FIFI WALKER on 07/18/19 0851 Hum Insulin Nph/Reg Insulin Hm 10 Ml Vial, 15 UNITS SQ TID, (Reported) Insulin Glargine,Hum.rec.anlog 300 Unit/3 Ml Insuln.pen, 10 UNITS SQ HS Prescribed by: NNEKA ROBINS on 12/14/12 1141 Ipratropium [place] 0.5 Mg/2.5 Ml Nebu, 0.5 MG IH Q6H PRN, (Reported) Ipratropium/Albuterol Sulfate 4 Gm Aer.w.adap, 1 PUFF IH QID, (Reported) Loratadine 10 Mg Tablet, 10 MG PO DAILY, (Reported) Lurasidone Hcl 80 Mg Tablet, 80 MG PO HS, (Reported) Lurasidone Hcl 40 Mg Tablet, 40 MG PO DAILY, (Reported) TAKES IN AM DAILY Meclizine Hcl 25 Mg Tablet, 1 EACH PO TID PRN, (Reported) Meloxicam 7.5 Mg Tablet, 7.5 MG PO DAILY, (Reported) Nitrofurantoin/Nitrofuran Mac 100 Mg Capsule, 100 MG PO BID Prescribed by: GUALBERTO DOUGHERTY on 04/14/131755 Nystatin 1 Each Powder.ea., 0 TOP BID PRN SPRINKLE ON AFFECTED AREA Prescribed by: GUALBERTO DOUGHERTY on 04/14/131754 Olanzapine 10 Mg Tab, 10 MG PO BID PRN for ANXIETY, (Reported) Ondansetron 4 Mg Tab.rapdis, 4 MG PO Q6H PRN for NAUSEA/VOMITING Prescribed by: TASH ALARCON on 01/22/202056 Oxcarbazepine 150 Mg Tablet, 300 MG PO DAILY, (Reported) Oxycodone HCl/Acetaminophen 1 Each Tablet, 1 EACH PO Q4H PRN for PAIN-SEVERE (8- 10) Prescribed by: TASH ALARCON on 05/31/19 0058 Oxycodone HCl/Acetaminophen 1 Each Tablet, 1 TAB PO Q6H PRN for PAIN-SEVERE (8- 10) Prescribed by: TASH ALARCON on 07/22/19 0157 Paroxetine Hcl 20 Mg Tablet, 20 MG PO HS, (Reported) Potassium Chloride 10 Meq Tab.prt.sr, 1 EACH PO BID WITH MEALS, (Reported) Prednisone 20 Mg Tab, 40 MG PO DAILY Prescribed by: TASH ALARCON on 07/22/19 0157 Prednisone 50 Mg Tab, 50 MG PO DAILY Prescribed by: ALBA FELTON on 10/21/19 1526 Sumatriptan 10 Gm Powder, 100 MG PO BID PRN, (Reported) Tiotropium [place] 1 Inh Aerp, 1 CAP IH DAILY, (Reported) 18 MCG CAPS/ONE INHALED DAILY Topiramate 100 Mg Tab, 200 MG PO HS, (Reported) PT TAKES 200MG TWICE DAILY AND 100MG AT NOON Topiramate 100 Mg Tab, 100 MG PO TID, (Reported) Tramadol Hcl 50 Mg Tablet, 100 MG PO Q6H PRN, (Reported) Trazodone HCl 100 Mg Tablet, 200 MG PO HS Prescribed by: FIFI WALKER on 07/18/19 0851 Trazodone Hcl 100 Mg Tab, 200 MG PO HS, (Reported) Warfarin Sodium 10 Mg Tablet, 10 MG PO DAILY@1800 Prescribed by: NNEKA ROBINS on 12/14/12 1141 Patient Home Medication List Home Medication List Reviewed: Yes Review of Systems Review of Systems Constitutional: no symptoms reported Eyes: No Symptoms Reported Ears, Nose, Mouth, Throat: no symptoms reported Respiratory: no symptoms reported Cardiovascular: no symptoms reported Gastrointestinal: no symptoms reported Genitourinary: no symptoms reported Musculoskeletal: no symptoms reported Skin: no symptoms reported Psychiatric/Neurological: Headache All Other Systems Reviewed Negative Unless Noted: Yes Past Wwcvkpm-Ifgsav-Fjpzou Hx Past Med/Social Hx: Reviewed Nursing Past Med/Soc Hx Patient Social History Alcohol Use: Denies Use Recreational Drug Use: No Smoking Status: Current Everyday Smoker Type Used: Cigarettes 2nd Hand Smoke Exposure: Yes Recent Foreign Travel: No Contact w/Someone Who Travel: No Recent Infectious Disease Expo: No Recent Hopitalizations: No Physical Abuse: No Sexual Abuse: No Mistreated: No Fear: No Immunizations Up To Date Date of Pneumonia Vaccine: Dec 14, 2012 Date of Influenza Vaccine: Mar 04, 2013 Seasonal Allergies Seasonal Allergies: No Past Medical History Surgeries: Yes (HIP, suprapubic catheter, Dental) Appendectomy, Gallbladder, Hysterectomy, Orthopedic Respiratory: Yes Asthma, Pneumonia, Chronic Bronchitis, Pulmonary Embolism, COPD, Emphysema Cardiac: Yes (CHF) Neurological: Yes Neuropathy 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 Disorders: No 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 Sexually Transmitted Disease: No HIV/AIDS: No Genitourinary: Yes Kidney Stones, Neurogenic Bladder, UTI-Chronic Gastrointestinal: Yes Abdominal Hernia, Gastroesophageal Reflux, Chronic Constipation, Irritable Bowel Musculoskeletal: Yes Arthritis, Fibromyalgia, Back Injury, Chronic Back Pain, Fractures, Spasms Endocrine: Yes Diabetes, Insulin dep, Hypothyroidsim HEENT: No Hearing Impairment: Hard of Hearing Cancer: Yes Ovarian Psychosocial: Yes ADD/ADHD, Bipolar, Schizophrenia Integumentary: No Blood Disorders: No Family Medical History No Pertinent Family Hx Physical Exam Vital Signs Vital Signs - First Documented 01/30/20 02:16 Temp 36.0 Pulse 94 Resp 22 B/P (MAP) 161/90 (113) Pulse Ox 96 O2 Delivery Room Air Capillary Refill : Less Than 3 Seconds Height, Weight, BMI Height: '" Weight: 275lbs. oz. 124.955608nq; 51.00 BMI Method:Stated General Appearance: WD/WN, no apparent distress, obese HEENT: PERRL/EOMI, pharynx normal Neck: full range of motion, normal inspection Cardiovascular: regular rate, rhythm, no edema, no murmur Respiratory: lungs clear, normal breath sounds, no respiratory distress, no accessory muscle use Gastrointestinal: normal bowel sounds, non tender, soft Extremities: normal range of motion, non-tender, no pedal edema Psychiatric: alert, oriented x 3 Crainal Nerves: normal hearing, normal speech, PERRL Coordination/Gait: normal gait Motor/Sensory: no motor deficit, no sensory deficit Skin: normal color, warm/dry Progress/Results/Core Measures Results/Orders My Orders Orders - KAYLEE GIVENS DO Metoclopramide Injection (Reglan Injecti (01/30/20 02:30) Diphenhydramine Injection (Benadryl Inje (01/30/20 02:30) Ketorolac Injection (Toradol Injection) (01/30/20 02:30) Morphine Injection (Morphine Injection (01/30/20 02:25) Vital Signs/I&O 01/30/20 02:16 Temp 36.0 Pulse 94 Resp 22 B/P (MAP) 161/90 (113) Pulse Ox 96 O2 Delivery Room Air Blood Pressure Mean: 113 Progress Progress Note : Progress Note @0240 - no red flags for serious headache etiology identified at this time. The patient reports this is her chronic typical migraine. No indication for imaging at this time. The patient appears comfortable. Advised her to follow up with her PCP today and to return to the emergency department for new or worsening symptoms. The patient expresses verbal understanding and agreement and is stable for discharge. Departure Impression Primary Impression: Migraine Disposition: 01 HOME, SELF-CARE Condition: Stable Departure-Patient Inst. Decision time for Depature: 02:40 Referrals: JAILENE DANIEL MD (PCP/Family) Primary Care Physician Patient Instructions: Headache, Adult (DC), Migraine Headache (DC) Add. Discharge Instructions: Follow-up with your primary care provider today. Take your normal migraine medications at home. Return to the ER for new or worsening symptoms. Scripts Butalb/Acetaminophen/Caffeine (Kklgqj-Nbuyyrdo-Busd 50-325-40) 1 Each Tablet 1 EACH PO Q6H PRN for PAIN-MODERATE (5-7) for 5 Days, #15 TAB Prov: KAYLEE GIVENS DO 01/30/20 KAYLEE GIVENS DO Jan 30, 2020 02:36
[2020-01-30] MEDS ORDERED: BUTA1TAB9 PO (02:42)
== END 2020-01-30 02:45 | disposition home or self-care (01) ==
LOC: EDUNIT# 02:16 → ER FS 02:18
DX: G43.909 Migraine, unspecified, not intractable, without status migrainosus (principal); J44.9 Chronic obstructive pulmonary disease, unspecified; F20.9 Schizophrenia, unspecified; Z85.43 Personal history of malignant neoplasm of ovary; F31.9 Bipolar disorder, unspecified; N39.0 Urinary tract infection, site not specified; E11.9 Type 2 diabetes mellitus without complications; F17.210 Nicotine dependence, cigarettes, uncomplicated; Z79.4 Long term (current) use of insulin; Z88.1 Allergy status to other antibiotic agents; Z88.8 Allergy status to other drugs, medicaments and biological substances; Z79.01 Long term (current) use of anticoagulants; Z79.52 Long term (current) use of systemic steroids
CPT/HCPCS: 99284

== ENCOUNTER 2020-02-01 01:02 | Emergency (ER) | payer MEDICAID ==
[~2020-02-01 01:02] MED LIST changes: +BUTA1TAB9 PO
[2020-02-01] MEDS ORDERED: NS IV 1000 ML 1,000 ML IV SCH (01:30)
[2020-02-01] MEDS ORDERED: diphenhydrAMINE 50 MG/ML INJ (BENADRYL) IM ONE (01:30)
[2020-02-01] MEDS ORDERED: RT-ALBUTEROL/IPRATROPIUM 3 ML (DUONEB) VIAL INH ONE (01:30)
[2020-02-01] MEDS ORDERED: PROCHLORPERAZINE 10 MG/2ML INJ (COMPAZINE) IV ONE (01:30)
[2020-02-01] MEDS ORDERED: METOCLOPRAMIDE INJ 10 MG/2 ML (REGLAN) IVP ONE (01:30)
[2020-02-01 01:41] LABS: WHITE BLOOD COUNT 13.4 10^3/uL (4.3-11.0)
[2020-02-01 01:42] LABS: BASOPHILS # (AUTO) 0.1 10^3/uL (0.0-0.1); BASOPHILS % (AUTO) 0 % (0-10); EOSINOPHILS # (AUTO) 0.1 10^3/uL (0.0-0.3); EOSINOPHILS % (AUTO) 1 % (0-10); HEMATOCRIT 43 % (35-52); HEMOGLOBIN 13.8 G/DL (11.5-16.0); LYMPHOCYTES # (AUTO) 1.8 X 10^3 (1.0-4.0); LYMPHOCYTES % (AUTO) 14 % (12-44); MEAN CORPUSCULAR HEMOGLOBIN 33 PG (25-34); MEAN CORPUSCULAR HGB CONC 32 G/DL (32-36); MEAN CORPUSCULAR VOLUME 103 FL (80-99); MEAN PLATELET VOLUME 10.4 FL (7.4-10.4); MONOCYTES # (AUTO) 1.2 X 10^3 (0.0-1.0); MONOCYTES % (AUTO) 9 % (0-12); NEUTROPHILS # (AUTO) 10.2 X 10^3 (1.8-7.8); NEUTROPHILS % (AUTO) 76 % (42-75); PLATELET COUNT 165 10^3/uL (130-400)
[2020-02-01 01:54] LABS: INR 1.1 (0.8-1.4); PROTHROMBIN TIME PATIENT 14.2 SEC (12.2-14.7)
[2020-02-01 02:02] LABS: ALANINE AMINOTRANSFERASE 14 U/L (0-55); ALBUMIN 3.3 GM/DL (3.2-4.5); ALKALINE PHOSPHATASE 165 U/L (40-136); BILIRUBIN,TOTAL 0.3 MG/DL (0.1-1.0); BUN/CREATININE RATIO 11; CALCIUM 8.6 MG/DL (8.5-10.1); CARBON DIOXIDE 20 MMOL/L (21-32); CHLORIDE 103 MMOL/L (98-107); CREATININE SERUM 0.76 MG/DL (0.60-1.30); GFR ESTIMATED > 60; GLUCOSE 139 MG/DL (70-105); POTASSIUM 4.4 MMOL/L (3.6-5.0); SODIUM 135 MMOL/L (135-145); TOTAL PROTEIN 6.9 GM/DL (6.4-8.2)
[2020-02-01] MEDS ORDERED: FUROSEMIDE 20 MG (LASIX) TAB PO STA (02:26)
--- NOTE | 2020-02-01 02:29 | ED General ---
General Chief Complaint: Respiratory Problems Stated Complaint: GENERAL PAIN Nursing Triage Note: Pt complaining of sob as well as a migraine Nursing Sepsis Screen: No Definite Risk Source of Information: Patient History of Present Illness Date Seen by Provider: Feb 01, 2020 Time Seen by Provider: 01:15 Initial Comments Patient is a 49-year-old female with chronic recurrent migraine headaches and hypertension who presents with persistent migraine headache for the past 3 days. Patient's been evaluated twice earlier this in the ED for headache. Headache is described dull throbbing in retro-orbital. It is associated with nausea and light sensitivity. Aggravating factors include cough in supine position. Some improvement with Excedrin Migraine pills. Currently on 0 also for treatment of DVT and PE. Patient has a nonproductive wet cough past 3 days reports mild shortness of breath. Some improvement with albuterol inhaler. Missed home dose of Lasix. History of COPD. Patient reports routine inhaler use. No fever chills, nausea vomiting or sweats. Denies increased leg pain or swelling. Timing/Duration: 3-4 Days Severity: Moderate Modifying Factors: improves with Medication, improves with Movement, improves with Rest Associated Systoms: Cough, Shortness of Air Allergies and Home Medications Allergies Coded Allergies: doxycycline (Unverified Allergy, Mild, nauseated, 08/01/09) spinach (Unverified Allergy, Mild, 08/01/09) alprazolam (Verified Allergy, Unknown, 07/18/19) diazepam (Verified Allergy, Unknown, 07/18/19) sumatriptan (Verified Allergy, Unknown, 07/18/19) Home Medications Albuterol Sulfate 1 Puff Puff, 2 PUFF IH Q4H 1 PUFF = 90 MCG Prescribed by: ALBA FELTON on 10/21/19 1526 Atorvastatin 20 Mg Tablet, 20 MG PO HS, (Reported) Azithromycin 250 Mg Tablet, 250 MG PO UD TAKE 2 TABLETS ON DAY ONE THEN TAKE 1 TABLET DAILY FOR FOUR MORE DAYS Prescribed by: FIFI WALKER on 07/18/19 0851 Butalb/Acetaminophen/Caffeine 1 Each Tablet, 1 EACH PO Q6H PRN for PAIN-MODERATE (5-7) Prescribed by: KAYLEE GIVENS on 01/30/20 0242 Cephalexin Monohydrate 500 Mg Capsule, 1 EACH PO QID, (Reported) Ciprofloxacin 500 Mg Tablet, 1 TAB PO BID FOR INFECTION Prescribed by: BRAULIO NASH on 04/24/132100 Cyclobenzaprine HCl 10 Mg Tablet, 10 MG PO Q8H PRN for SPASMS Prescribed by: AMBREEN LEGER on 01/24/202145 Furosemide 40 Mg Tablet, 1 EACH PO BID, (Reported) PT TAKES 40MG PO BID Gabapentin 600 Mg Tab, 600 MG PO QID, (Reported) Haloperidol 10 Mg Tablet, 10 MG PO TID Prescribed by: FIFI WALKER on 07/18/19 0851 Hum Insulin Nph/Reg Insulin Hm 10 Ml Vial, 15 UNITS SQ TID, (Reported) Insulin Glargine,Hum.rec.anlog 300 Unit/3 Ml Insuln.pen, 10 UNITS SQ HS Prescribed by: NNEKA ROBINS on 12/14/12 1141 Ipratropium [place] 0.5 Mg/2.5 Ml Nebu, 0.5 MG IH Q6H PRN, (Reported) Ipratropium/Albuterol Sulfate 4 Gm Aer.w.adap, 1 PUFF IH QID, (Reported) Loratadine 10 Mg Tablet, 10 MG PO DAILY, (Reported) Lurasidone Hcl 80 Mg Tablet, 80 MG PO HS, (Reported) Lurasidone Hcl 40 Mg Tablet, 40 MG PO DAILY, (Reported) TAKES IN AM DAILY Meclizine Hcl 25 Mg Tablet, 1 EACH PO TID PRN, (Reported) Meloxicam 7.5 Mg Tablet, 7.5 MG PO DAILY, (Reported) Nitrofurantoin/Nitrofuran Mac 100 Mg Capsule, 100 MG PO BID Prescribed by: GUALBERTO DOUGHERTY on 04/14/131755 Nystatin 1 Each Powder.ea., 0 TOP BID PRN SPRINKLE ON AFFECTED AREA Prescribed by: GUALBERTO DOUGHERTY on 04/14/131754 Olanzapine 10 Mg Tab, 10 MG PO BID PRN for ANXIETY, (Reported) Ondansetron 4 Mg Tab.rapdis, 4 MG PO Q6H PRN for NAUSEA/VOMITING Prescribed by: TASH ALARCON on 01/22/202056 Oxcarbazepine 150 Mg Tablet, 300 MG PO DAILY, (Reported) Oxycodone HCl/Acetaminophen 1 Each Tablet, 1 EACH PO Q4H PRN for PAIN-SEVERE (8- 10) Prescribed by: TASH ALARCON on 05/31/19 0058 Oxycodone HCl/Acetaminophen 1 Each Tablet, 1 TAB PO Q6H PRN for PAIN-SEVERE (8- 10) Prescribed by: TASH ALARCON on 07/22/19 0157 Paroxetine Hcl 20 Mg Tablet, 20 MG PO HS, (Reported) Potassium Chloride 10 Meq Tab.prt.sr, 1 EACH PO BID WITH MEALS, (Reported) Prednisone 20 Mg Tab, 40 MG PO DAILY Prescribed by: TASH ALARCON on 07/22/19 0157 Prednisone 50 Mg Tab, 50 MG PO DAILY Prescribed by: ALBA FELTON on 10/21/19 1526 Sumatriptan 10 Gm Powder, 100 MG PO BID PRN, (Reported) Tiotropium [place] 1 Inh Aerp, 1 CAP IH DAILY, (Reported) 18 MCG CAPS/ONE INHALED DAILY Topiramate 100 Mg Tab, 200 MG PO HS, (Reported) PT TAKES 200MG TWICE DAILY AND 100MG AT NOON Topiramate 100 Mg Tab, 100 MG PO TID, (Reported) Tramadol Hcl 50 Mg Tablet, 100 MG PO Q6H PRN, (Reported) Trazodone HCl 100 Mg Tablet, 200 MG PO HS Prescribed by: FIFI WALKER on 07/18/19 0851 Trazodone Hcl 100 Mg Tab, 200 MG PO HS, (Reported) Warfarin Sodium 10 Mg Tablet, 10 MG PO DAILY@1800 Prescribed by: NNEKA ROBINS on 12/14/12 1141 Patient Home Medication List Home Medication List Reviewed: Yes Review of Systems Review of Systems Constitutional: see HPI EENTM: see HPI Respiratory: see HPI Cardiovascular: see HPI Gastrointestinal: see HPI Genitourinary: see HPI Musculoskeletal: see HPI Psychiatric/Neurological: See HPI Hematologic/Lymphatic: See HPI Immunological/Allergic: see HPI All Other Systems Reviewed Negative Unless Noted: Yes Past Vrvoaok-Oowxjn-Sczgom Hx Past Med/Social Hx: Reviewed Nursing Past Med/Soc Hx Patient Social History Alcohol Use: Denies Use Recreational Drug Use: No Smoking Status: Current Everyday Smoker Type Used: Cigarettes 2nd Hand Smoke Exposure: Yes Recent Foreign Travel: No Contact w/Someone Who Travel: No Recent Infectious Disease Expo: No Recent Hopitalizations: No Physical Abuse: No Sexual Abuse: No Immunizations Up To Date Date of Pneumonia Vaccine: Dec 14, 2012 Date of Influenza Vaccine: Mar 04, 2013 Seasonal Allergies Seasonal Allergies: No Past Medical History Surgeries: Yes (HIP, suprapubic catheter, Dental) Appendectomy, Gallbladder, Hysterectomy, Orthopedic Respiratory: Yes Asthma, Pneumonia, Chronic Bronchitis, Pulmonary Embolism, COPD, Emphysema Cardiac: Yes (CHF) Neurological: Yes Neuropathy 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 Disorders: No 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 Sexually Transmitted Disease: No HIV/AIDS: No Genitourinary: Yes Kidney Stones, Neurogenic Bladder, UTI-Chronic Gastrointestinal: Yes Abdominal Hernia, Gastroesophageal Reflux, Chronic Constipation, Irritable Bowel Musculoskeletal: Yes Arthritis, Fibromyalgia, Back Injury, Chronic Back Pain, Fractures, Spasms Endocrine: Yes Diabetes, Insulin dep, Hypothyroidsim HEENT: No Hearing Impairment: Hard of Hearing Cancer: Yes Ovarian Psychosocial: Yes ADD/ADHD, Bipolar, Schizophrenia Integumentary: No Blood Disorders: No Family Medical History No Pertinent Family Hx Physical Exam Vital Signs Vital Signs - First Documented 02/01/20 01:03 Temp 36.9 Pulse 109 Resp 22 B/P (MAP) 158/100 (119) Pulse Ox 95 O2 Delivery Room Air Capillary Refill : Less Than 3 Seconds Height, Weight, BMI Height: '" Weight: 275lbs. oz. 124.727127iz; 51.00 BMI Method:Stated General Appearance: WD/WN Eyes: Bilateral Eye Normal Inspection, Bilateral Eye PERRL, Bilateral Eye EOMI HEENT: PERRL/EOMI, Normal ENT Inspection Neck: Normal Inspection, Supple Respiratory: Rhonci (MICHEL rhonchi throughout); No Wheezing; Other Cardiovascular: Regular Rate, Rhythm, No Edema Gastrointestinal: Non Tender, Soft Back: Normal Inspection Neurologic/Psychiatric: Oriented x3, Normal Mood/Affect Skin: Normal Color Focused Exam Sepsis Stage: Ruled Out Progress/Results/Core Measures Suspected Sepsis Recent Fever Within 48 Hours: No Infection Criteria Present: None New/Unexplained Altered Menta: No Sepsis Screen: No Definite Risk SIRS Temperature: Pulse: 109 Respiratory Rate: 22 Laboratory Tests 02/01/20 01:36: White Blood Count 13.4H Blood Pressure 158 /100 Mean: 119 Laboratory Tests 02/01/20 01:36: Creatinine 0.76, INR Comment 1.1, Platelet Count 165, Total Bilirubin 0.3 Results/Orders Lab Results Laboratory Tests Test 02/01/20 01:36 Range/Units White Blood Count 13.4 H 4.3-11.0 10^3/uL Red Blood Count 4.21 L 4.35-5.85 10^6/uL Hemoglobin 13.8 11.5-16.0 G/DL Hematocrit 43 35-52 % Mean Corpuscular Volume 103 H 80-99 FL Mean Corpuscular Hemoglobin 33 25-34 PG Mean Corpuscular Hemoglobin Concent 32 32-36 G/DL Red Cell Distribution Width 14.0 10.0-14.5 % Platelet Count 165 130-400 10^3/uL Mean Platelet Volume 10.4 7.4-10.4 FL Neutrophils (%) (Auto) 76 H 42-75 % Lymphocytes (%) (Auto) 14 12-44 % Monocytes (%) (Auto) 9 0-12 % Eosinophils (%) (Auto) 1 0-10 % Basophils (%) (Auto) 0 0-10 % Neutrophils # (Auto) 10.2 H 1.8-7.8 X 10^3 Lymphocytes # (Auto) 1.8 1.0-4.0 X 10^3 Monocytes # (Auto) 1.2 H 0.0-1.0 X 10^3 Eosinophils # (Auto) 0.1 0.0-0.3 10^3/uL Basophils # (Auto) 0.1 0.0-0.1 10^3/uL Prothrombin Time 14.2 12.2-14.7 SEC INR Comment 1.1 0.8-1.4 Sodium Level 135 135-145 MMOL/L Potassium Level 4.4 3.6-5.0 MMOL/L Chloride Level 103 98-107 MMOL/L Carbon Dioxide Level 20 L 21-32 MMOL/L Anion Gap 12 5-14 MMOL/L Blood Urea Nitrogen 8 7-18 MG/DL Creatinine 0.76 0.60-1.30 MG/DL Estimat Glomerular Filtration Rate > 60 BUN/Creatinine Ratio 11 Glucose Level 139 H 70-105 MG/DL Calcium Level 8.6 8.5-10.1 MG/DL Corrected Calcium 9.2 8.5-10.1 MG/DL Total Bilirubin 0.3 0.1-1.0 MG/DL Aspartate Amino Transf (AST/SGOT) 13 5-34 U/L Alanine Aminotransferase (ALT/SGPT) 14 0-55 U/L Alkaline Phosphatase 165 H 40-136 U/L Troponin I < 0.30 <0.30 NG/ML Pro-B-Type Natriuretic Peptide 149.6 H <75.0 PG/ML Total Protein 6.9 6.4-8.2 GM/DL Albumin 3.3 3.2-4.5 GM/DL My Orders Orders - EMILY DOMÍNGUEZ DO Cbc With Automated Diff (02/01/20 01:17) Comprehensive Metabolic Panel (02/01/20 01:17) Protime With Inr (02/01/20 01:17) Probnp Fs (02/01/20 01:17) Chest 1 View Ap/Pa Only (02/01/20 01:17) Troponin I Fs (02/01/20 01:17) Ct Head Wo (02/01/20 01:17) Prochlorperazine Injection (Compazine In (02/01/20 01:30) Metoclopramide Injection (Reglan Injecti (02/01/20 01:30) Diphenhydramine Injection (Benadryl Inje (02/01/20 01:30) Albuterol/Ipra Inhalation Soln (Duoneb I (02/01/20 01:30) Svn Small Volume Nebulizer (02/01/20 01:22) Cephalexin Capsule (Keflex Capsule) (02/01/20 02:30) Furosemide Tablet (Lasix Tablet) (02/01/20 02:26) Hydrocodone/Apap 5/325 Tablet (Lortab 5 (02/01/20 02:30) Medications Given in ED Current Medications Medications Dose Ordered Sig/Kurtis Route Start Time Stop Time Status Last Admin Dose Admin Albuterol/ Ipratropium 3 ml ONCE ONCE INH 02/01/20 01:30 02/01/20 01:31 DC 02/01/20 01:50 3 ML Diphenhydramine HCl 50 mg ONCE ONCE IM 02/01/20 01:30 02/01/20 01:31 DC 02/01/20 01:50 50 MG Metoclopramide HCl 10 mg ONCE ONCE IVP 02/01/20 01:30 02/01/20 01:31 DC 02/01/20 01:50 10 MG Prochlorperazine Edisylate 10 mg ONCE ONCE IV 02/01/20 01:30 02/01/20 01:31 DC 02/01/20 01:50 10 MG Vital Signs/I&O 02/01/20 01:03 Temp 36.9 Pulse 109 Resp 22 B/P (MAP) 158/100 (119) Pulse Ox 95 O2 Delivery Room Air Capillary Refill : Less Than 3 Seconds Blood Pressure Mean: 119 Departure Communication (Admissions) CT head: No acute disease per radiology report Chest x-ray: Questionable left pleural effusion. Recurrent migraine headache normal CT. Neurologically intact. Patient given IM medications with significant improvement headache. Improved cough and wheezing with albuterol treatment. Missed dose of Lasix given. Patient with elevated white blood cell count no fever. In box given. Patient resting comfortably with stable vital signs. Recommend supportive care with PCP follow-up. Return precautions reviewed. Patient verbalizes understanding. Discharge instructions prior to departure. Impression Primary Impression: Migraine headache Additional Impression: Acute bronchitis Disposition: HOME, SELF-CARE Condition: Stable Departure-Patient Inst. Decision time for Depature: 02:35 Referrals: JAILENE DANIEL MD (PCP/Family) Primary Care Physician Patient Instructions: Acute Bronchitis, Migraines in Adults Scripts Hydrocodone Bit/Acetaminophen (HYDROcodone/APAP 7.5/325 TAB) 1 Ea Tablet 1 EA PO q6, #10 TAB Prov: EMILY DOMÍNGUEZ DO 02/01/20 Cephalexin (Keflex) 500 Mg Capsule 500 MG PO TID, #30 CAP Prov: EMILY DOMÍNGUEZ DO 02/01/20 EMILY DOMÍNGUEZ DO Feb 01, 2020 02:29
[2020-02-01] MEDS ORDERED: HYDROcodone/APAP 5 MG/325 MG (LORTAB) TAB PO ONE (02:30)
[2020-02-01] MEDS ORDERED: FUROSEMIDE 20 MG (LASIX) TAB PO ONE (02:30)
[2020-02-01] MEDS ORDERED: CEPHALEXIN 250 MG (KEFLEX) CAP PO ONE (02:30)
[2020-02-01] MEDS ORDERED: CEPH-507 PO (02:37)
[2020-02-01] MEDS ORDERED: HYDR-34 PO (02:37)
[2020-02-01 02:40] VITALS: BP 170/86
--- NOTE | 2020-02-01 07:48 | Diagnostic Imaging Report ---
PROCEDURE: CT head without contrast. TECHNIQUE: Multiple contiguous axial images were obtained through the brain without the use of intravenous contrast. Auto Exposure Controls were utilized during the CT exam to meet ALARA standards for radiation dose reduction. INDICATION: Migraine headache. CORRELATION: 07/15/2019 FINDINGS: There is no midline shift or mass effect. The ventricles and sulci are unremarkable. No evidence for acute intracranial hemorrhage, abnormal extra-axial fluid collections or cerebral edema is present. The basilar cisterns are unremarkable. The bony calvarium is intact. The visualized paranasal sinuses and mastoid air cells are clear. IMPRESSION: Negative appearing noncontrast CT of the head. Initial report was provided by [employer]. Dictated by: Dictated on workstation # [id number]
--- NOTE | 2020-02-01 07:52 | Diagnostic Imaging Report ---
INDICATION: Shortness of air. TECHNIQUE: Single view chest 1:52 AM. CORRELATION STUDY: 10/21/2019 FINDINGS: Heart size and mediastinum stable. Vasculature however appears slightly increased from prior. Minimal perihilar edema versus less likely infiltrate. No peripheral consolidation. IMPRESSION: 1. Increased perihilar markings could be reflective of mild edema versus perihilar infiltrates. Followup imaging as clinically warranted. Dictated by: Dictated on workstation # [id number]
--- NOTE | 2020-02-01 16:40 | NUR ---
[facility] called to report patient with a scipt for Hydrocodone from Dr Jamey Cabral and numerous narcotics are being dispensed. Please alert the MD.
--- NOTE | 2020-02-01 16:40 | NUR ---
[facility] pharmacy called and reports the need to report the numerous refills and scripts for scheduled Class II narcotics. Pt has scheduled Oxycodone and rec'd #120 on 01/19/[address] Lavell Bautista and other small scripts come periodically by other providers. Dr Malhotra states to withdraw this script and decline refill as too many narcotics on hand, refer to PCP for person in management of chronic pain.
== END 2020-02-01 02:41 | disposition home or self-care (01) ==
LOC: EDUNIT# 01:02 → ER FS 01:03
DX: G43.909 Migraine, unspecified, not intractable, without status migrainosus (principal); J20.9 Acute bronchitis, unspecified; F31.9 Bipolar disorder, unspecified; J44.9 Chronic obstructive pulmonary disease, unspecified; G89.29 Other chronic pain; M54.9 Dorsalgia, unspecified; F20.9 Schizophrenia, unspecified; E11.9 Type 2 diabetes mellitus without complications; F17.210 Nicotine dependence, cigarettes, uncomplicated; Z86.711 Personal history of pulmonary embolism; Z85.43 Personal history of malignant neoplasm of ovary; Z88.1 Allergy status to other antibiotic agents; Z88.8 Allergy status to other drugs, medicaments and biological substances; Z79.4 Long term (current) use of insulin; Z79.01 Long term (current) use of anticoagulants; Z79.52 Long term (current) use of systemic steroids; Z79.891 Long term (current) use of opiate analgesic
CPT/HCPCS: 36415; 70450; 71045; 80053; 83880; 84484; 85025; 85610

== ENCOUNTER 2020-02-29 20:21 | Emergency (ER) | payer MEDICAID ==
[~2020-02-29 20:21] MED LIST changes: +CEPH-507 PO; +HYDR-34 PO; -OXYC-465 PO; +OXYC-556 PO
[2020-02-29] MEDS ORDERED: morphine INJ 10 MG/ML 1ML (SYR OR VIAL) IM STA (21:06)
[2020-02-29] MEDS ORDERED: ORPHENADRINE 60 MG/2 ML (NORFLEX) AMP (ED ONLY) IM STA (21:06)
[2020-02-29] MEDS ORDERED: KETOROLAC 60 MG/2 ML VIAL IM STA (21:06)
--- NOTE | 2020-02-29 21:11 | ED Fall/Injury ---
General Chief Complaint: Trauma-Non Activation Stated Complaint: FALL Nursing Triage Note: Pt tripped on a curb and fell, complaining of right hip and right lower back pain Source: patient History of Present Illness Date Seen by Provider: Feb 29, 2020 Time Seen by Provider: 20:46 Initial Comments 49-year-old female presenting with complaints of tripping on a curb tonight. In the process she fell backwards and landed on her back and right hip. She has chronic low back pain anyway and this caused her to have a flareup of her back pain. She was able to walk and get back up. She denies any loss of bowel or bladder control. She did not hit her head or lose consciousness. She has been out of her chronic pain medicine of oxycodone since last Sunday as she is waiting for Dr. Daniel to get a prior authorization with [place] [employer]. She is scheduled to see him on March 03. Allergies and Home Medications Allergies Coded Allergies: doxycycline (Unverified Allergy, Mild, nauseated, 08/01/09) spinach (Unverified Allergy, Mild, 08/01/09) alprazolam (Verified Allergy, Unknown, 07/18/19) diazepam (Verified Allergy, Unknown, 07/18/19) sumatriptan (Verified Allergy, Unknown, 07/18/19) Home Medications Albuterol Sulfate 1 Puff Puff, 2 PUFF IH Q4H 1 PUFF = 90 MCG Prescribed by: ALBA FLETON on 10/21/19 1526 Atorvastatin 20 Mg Tablet, 20 MG PO HS, (Reported) Azithromycin 250 Mg Tablet, 250 MG PO UD TAKE 2 TABLETS ON DAY ONE THEN TAKE 1 TABLET DAILY FOR FOUR MORE DAYS Prescribed by: FIFI WALKER on 07/18/19 0851 Butalb/Acetaminophen/Caffeine 1 Each Tablet, 1 EACH PO Q6H PRN for PAIN-MODERATE (5-7) Prescribed by: KAYLEE GIVENS on 01/30/20 0242 Cephalexin 500 Mg Capsule, 500 MG PO TID Prescribed by: EMILY DOMÍNGUEZ on 02/01/20 0237 Cephalexin Monohydrate 500 Mg Capsule, 1 EACH PO QID, (Reported) Ciprofloxacin 500 Mg Tablet, 1 TAB PO BID FOR INFECTION Prescribed by: BRAULIO NASH on 04/24/13 210 Cyclobenzaprine HCl 10 Mg Tablet, 10 MG PO Q8H PRN for SPASMS Prescribed by: AMBREEN LEGER on 01/24/20 2146 Furosemide 40 Mg Tablet, 1 EACH PO BID, (Reported) PT TAKES 40MG PO BID Gabapentin 600 Mg Tab, 600 MG PO QID, (Reported) Haloperidol 10 Mg Tablet, 10 MG PO TID Prescribed by: FIFI WALKER on 07/18/19 0851 Hum Insulin Nph/Reg Insulin Hm 10 Ml Vial, 15 UNITS SQ TID, (Reported) Hydrocodone Bit/Acetaminophen 1 Ea Tablet, 1 EA PO q6 Prescribed by: EMILY DOMÍNGUEZ on 02/01/20 0237 Insulin Glargine,Hum.rec.anlog 300 Unit/3 Ml Insuln.pen, 10 UNITS SQ HS Prescribed by: NNEKA ROBINS on 12/14/12 1141 Ipratropium [place] 0.5 Mg/2.5 Ml Nebu, 0.5 MG IH Q6H PRN, (Reported) Ipratropium/Albuterol Sulfate 4 Gm Aer.w.adap, 1 PUFF IH QID, (Reported) Loratadine 10 Mg Tablet, 10 MG PO DAILY, (Reported) Lurasidone Hcl 80 Mg Tablet, 80 MG PO HS, (Reported) Lurasidone Hcl 40 Mg Tablet, 40 MG PO DAILY, (Reported) TAKES IN AM DAILY Meclizine Hcl 25 Mg Tablet, 1 EACH PO TID PRN, (Reported) Meloxicam 7.5 Mg Tablet, 7.5 MG PO DAILY, (Reported) Nitrofurantoin/Nitrofuran Mac 100 Mg Capsule, 100 MG PO BID Prescribed by: GUALBERTO DOUGHERTY on 04/14/131755 Nystatin 1 Each Powder.ea., 0 TOP BID PRN SPRINKLE ON AFFECTED AREA Prescribed by: GUALBERTO DOUGHERTY on 04/14/131754 Olanzapine 10 Mg Tab, 10 MG PO BID PRN for ANXIETY, (Reported) Ondansetron 4 Mg Tab.rapdis, 4 MG PO Q6H PRN for NAUSEA/VOMITING Prescribed by: TASH ALARCON on 01/22/202056 Oxcarbazepine 150 Mg Tablet, 300 MG PO DAILY, (Reported) Oxycodone HCl/Acetaminophen 1 Each Tablet, 1 EACH PO Q4H PRN for PAIN-SEVERE (8- 10) Prescribed by: TASH ALARCON on 05/31/19 0058 Oxycodone HCl/Acetaminophen 1 Each Tablet, 1 TAB PO Q6H PRN for PAIN-SEVERE (8- 10) Prescribed by: TASH ALARCON on 07/22/19 0157 Paroxetine Hcl 20 Mg Tablet, 20 MG PO HS, (Reported) Potassium Chloride 10 Meq Tab.prt.sr, 1 EACH PO BID WITH MEALS, (Reported) Prednisone 20 Mg Tab, 40 MG PO DAILY Prescribed by: TASH ALARCON on 07/22/19 0157 Prednisone 50 Mg Tab, 50 MG PO DAILY Prescribed by: ALBA FELTON on 10/21/19 1526 Sumatriptan 10 Gm Powder, 100 MG PO BID PRN, (Reported) Tiotropium [place] 1 Inh Aerp, 1 CAP IH DAILY, (Reported) 18 MCG CAPS/ONE INHALED DAILY Topiramate 100 Mg Tab, 200 MG PO HS, (Reported) PT TAKES 200MG TWICE DAILY AND 100MG AT NOON Topiramate 100 Mg Tab, 100 MG PO TID, (Reported) Tramadol Hcl 50 Mg Tablet, 100 MG PO Q6H PRN, (Reported) Trazodone HCl 100 Mg Tablet, 200 MG PO HS Prescribed by: FIFI WALKER on 07/18/19 0851 Trazodone Hcl 100 Mg Tab, 200 MG PO HS, (Reported) Warfarin Sodium 10 Mg Tablet, 10 MG PO DAILY@1800 Prescribed by: NNEKA ROBINS on 12/14/12 1141 Patient Home Medication List Home Medication List Reviewed: Yes Review of Systems Review of Systems Constitutional: No chills, No dizziness, No fever Eyes: No Symptoms Reported Ears, Nose, Mouth, Throat: no symptoms reported Respiratory: no symptoms reported Cardiovascular: no symptoms reported Gastrointestinal: no symptoms reported Genitourinary: no symptoms reported Musculoskeletal: see HPI Skin: no symptoms reported Psychiatric/Neurological: Denies Headache Past Rszepaa-Sryrdi-Kehlcm Hx Past Med/Social Hx: Reviewed Nursing Past Med/Soc Hx Patient Social History Alcohol Use: Denies Use Recreational Drug Use: No Type Used: Cigarettes 2nd Hand Smoke Exposure: Yes Recent Foreign Travel: No Contact w/Someone Who Travel: No Recent Infectious Disease Expo: No Recent Hopitalizations: No Physical Abuse: No Sexual Abuse: No Immunizations Up To Date Date of Pneumonia Vaccine: Dec 14, 2012 Date of Influenza Vaccine: Mar 04, 2013 Seasonal Allergies Seasonal Allergies: No Past Medical History Surgeries: Yes (HIP, suprapubic catheter, Dental) Appendectomy, Gallbladder, Hysterectomy, Orthopedic Respiratory: Yes Asthma, Pneumonia, Chronic Bronchitis, Pulmonary Embolism, COPD, Emphysema Cardiac: Yes (CHF) Neurological: Yes Neuropathy 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 Disorders: No 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 Sexually Transmitted Disease: No HIV/AIDS: No Genitourinary: Yes Kidney Stones, Neurogenic Bladder, UTI-Chronic Gastrointestinal: Yes Abdominal Hernia, Gastroesophageal Reflux, Chronic Constipation, Irritable Bowel Musculoskeletal: Yes Arthritis, Fibromyalgia, Back Injury, Chronic Back Pain, Fractures, Spasms Endocrine: Yes Diabetes, Insulin dep, Hypothyroidsim HEENT: No Hearing Impairment: Hard of Hearing Cancer: Yes Ovarian Psychosocial: Yes ADD/ADHD, Bipolar, Schizophrenia Integumentary: No Blood Disorders: No Family Medical History No Pertinent Family Hx Physical Exam Vital Signs Vital Signs - First Documented 02/29/20 20:23 Temp 36.6 Pulse 103 Resp 20 B/P (MAP) 159/91 (113) Pulse Ox 97 O2 Delivery Nasal Cannula O2 Flow Rate 2.00 Capillary Refill : Less Than 3 Seconds Height, Weight, BMI Height: '" Weight: 275lbs. oz. 124.395372ws; 51.00 BMI Method:Stated General Appearance: WD/WN, obese Neck: non-tender, full range of motion, supple, normal inspection Cardiovascular: normal peripheral pulses, regular rate, rhythm Respiratory: chest non-tender, no respiratory distress, no accessory muscle use, decreased breath sounds, wheezing (expiratory wheezing) Gastrointestinal: normal bowel sounds, soft, no pulsatile mass Extremities: normal range of motion, non-tender, normal inspection, normal capillary refill, pedal edema (1+ pitting edema BLE) Neurologic/Psychiatric: alert, normal mood/affect, oriented x 3 Skin: normal color, warm/dry Progress/Results/Core Measures Results/Orders My Orders Orders - TASH ALARCON MD Morphine Injection (Morphine Injection (02/29/20 21:06) Ketorolac Injection (Toradol Injection) (02/29/20 21:06) Orphenadrine Inj (Ed Only) (Norflex Inje (02/29/20 21:06) Ct Lumbar Spine Wo (02/29/20 21:08) Ct Pelvis Wo (02/29/20 21:08) Rx-Oxycodone/Apap 5-325 Mg (Rx-Percocet (02/29/20 22:30) Medications Given in ED Current Medications Medications Dose Ordered Sig/Kurtis Route Start Time Stop Time Status Last Admin Dose Admin Oxycodone/ Acetaminophen 1 ea Q8H PRN PO 02/29/20 22:30 02/29/20 22:41 DC 02/29/20 22:39 1 EA Vital Signs/I&O 02/29/20 02/29/20 20:23 22:42 Temp 36.6 36.6 Pulse 103 99 Resp 20 20 B/P (MAP) 159/91 (113) 143/95 (113) Pulse Ox 97 97 O2 Delivery Nasal Cannula Nasal Cannula O2 Flow Rate 2.00 2.00 Blood Pressure Mean: 113 Progress Progress Note #1: Progress Note Give a pain shot of morphine, Toradol and Norflex. Obtain CT scan of her lumbar spine to ensure she is not cause compression fracture acute injury of her chronic low back pain. Also image her pelvis to make sure that her fall has not caused a hip fracture or acute pelvic fracture with her complaints of pain. Progress Note #2: Progress Note CT scan of her lumbar spine and pelvis did not show any acute significant fracture or dislocation. Patient's pain was doing better after treatment. With Pharmacy closed will send her with a 4 pack of Percocet 5/325. Stressed importance of keeping appointment with Dr. Daniel on the . Diagnostic Imaging Diagonstic Imaging: CT Plain Films/CT/US/NM/MRI: pelvis Comments [facility], [place] NAME[facility] REC#: [id number] PT STATUS: REG ER : 1970 PHYSICIAN: TASH ALARCON MD ADMIT DATE: 02/29/20/ER FS Signed Date of Exam:02/29/20 CT PELVIS WO PROCEDURE: CT pelvis without contrast. TECHNIQUE: Multiple contiguous axial images were obtained through the pelvis without the use of intravenous contrast. Sagittal and coronal reformations were performed. Auto Exposure Controls were utilized during the CT exam to meet ALARA standards for radiation dose reduction. INDICATION: Fall with hip and pelvic pain. History of bilateral hip pinning. COMPARISON: 05/21/2019. FINDINGS: Intramedullary rods are present in the femurs, bilaterally. There is no fixation of the femoral necks. Multiple large ossific fragments are seen superior to the greater trochanters which are likely from postsurgical change. No hardware loosening is seen in the proximal femurs. No acute fracture is seen. The femoral heads are well-seated in the acetabula, bilaterally. There is mild degenerative change present in the hips. No cortical erosion is seen. No mass or fluid collection is seen in the pelvis. There is mild distention of the urinary bladder, with hyperdense stool. IMPRESSION: Intramedullary rods in the bilateral femurs, with no hardware complication or acute osseous abnormality seen in the pelvis. Dictated by: Dictated on workstation # [id number] Dict: 02/29/202199 Trans: 02/29/202212 [facility] [id number] Interpreted by: REBA FAJARDO MD Electronically signed by: REBA FAJARDO MD 02/29/202212 Diagonstic Imaging: CT Plain Films/CT/US/NM/MRI: other (Lumbar spine) Comments Impression 1. Lumbar spondylosis. No evidence of lumbar fracture. Radiologist Dr. Kaylee Johnson M.D. Read at 2221 and faxed at [phone] Departure Impression Primary Impression: Acute exacerbation of chronic low back pain Additional Impressions: Contusion of right hip, initial encounter Fall Qualified Codes: W19.XXXA - Unspecified fall, initial encounter Disposition: 01 HOME, SELF-CARE Condition: Stable Departure-Patient Inst. Decision time for Depature: 22:32 Referrals: JAILENE DANIEL MD (PCP/Family) Primary Care Physician Patient Instructions: Low Back Pain (DC), Contusion (DC) Add. Discharge Instructions: Check back with Dr. Daniel as scheduled this week. Try the pain medicine to help get you by until you see him for refill of your chronic pain medicine. You may try alternating ice and heat to your back and hip as well All discharge instructions reviewed with patient and/or family. Voiced understanding. TASH ALARCON MD Feb 29, 2020 21:11
--- NOTE | 2020-02-29 22:05 | Diagnostic Imaging Report ---
PROCEDURE: CT pelvis without contrast. TECHNIQUE: Multiple contiguous axial images were obtained through the pelvis without the use of intravenous contrast. Sagittal and coronal reformations were performed. Auto Exposure Controls were utilized during the CT exam to meet ALARA standards for radiation dose reduction. INDICATION: Fall with hip and pelvic pain. History of bilateral hip pinning. COMPARISON: 05/21/2019. FINDINGS: Intramedullary rods are present in the femurs, bilaterally. There is no fixation of the femoral necks. Multiple large ossific fragments are seen superior to the greater trochanters which are likely from postsurgical change. No hardware loosening is seen in the proximal femurs. No acute fracture is seen. The femoral heads are well-seated in the acetabula, bilaterally. There is mild degenerative change present in the hips. No cortical erosion is seen. No mass or fluid collection is seen in the pelvis. There is mild distention of the urinary bladder, with hyperdense stool. IMPRESSION: Intramedullary rods in the bilateral femurs, with no hardware complication or acute osseous abnormality seen in the pelvis. Dictated by: Dictated on workstation # [id number]
[2020-02-29] MEDS ORDERED: RX-OXYCODONE/APAP 5-325 MG #4 TAB PK PO PRN (22:30)
[2020-02-29 22:42] VITALS: BP 143/95
--- NOTE | 2020-03-01 06:42 | Diagnostic Imaging Report ---
EXAMINATION: CT lumbar spine without contrast. TECHNIQUE: Multiple contiguous axial images were obtained through the lumbar spine without the use of intravenous contrast. Sagittal and coronal reformations were then performed. All CT scans use one or more of the following dose optimizing techniques: automated exposure control, MA and/or KvP adjustment based on a patient size and exam type, or iterative reconstruction. HISTORY: Fall COMPARISON: None available. FINDINGS: The alignment of the lumbar spine is normal. Vertebral body heights are normal and no fracture is seen. Facet joints are normal. Disk heights are normal. There is no spinal canal stenosis. There appears to be an inferior vena cava filter with the tines extending beyond the confines of the cava. The aorta is normal. IMPRESSION: 1. No lumbar spine fracture. There is no significant disagreement with the preliminary report. Dictated by: Dictated on workstation # [id number]
== END 2020-02-29 22:40 | disposition home or self-care (01) ==
LOC: EDUNIT# 20:21 → ER FS 20:24
DX: S70.01XA Contusion of right hip, initial encounter (principal); M54.5 Low back pain; E66.9 Obesity, unspecified; J44.9 Chronic obstructive pulmonary disease, unspecified; F31.9 Bipolar disorder, unspecified; E11.9 Type 2 diabetes mellitus without complications; F20.9 Schizophrenia, unspecified; I50.9 Heart failure, unspecified; G89.29 Other chronic pain; M54.9 Dorsalgia, unspecified; Z68.43 Body mass index [BMI] 50.0-59.9, adult; Z85.43 Personal history of malignant neoplasm of ovary; Z77.22 Contact with and (suspected) exposure to environmental tobacco smoke (acute) (chronic); Z86.711 Personal history of pulmonary embolism; Z88.1 Allergy status to other antibiotic agents; Z88.8 Allergy status to other drugs, medicaments and biological substances; Z79.891 Long term (current) use of opiate analgesic; Z79.4 Long term (current) use of insulin; Z79.01 Long term (current) use of anticoagulants; Z79.52 Long term (current) use of systemic steroids; W01.0XXA Fall on same level from slipping, tripping and stumbling without subsequent striking against object, initial encounter
CPT/HCPCS: 72131; 72192

== ENCOUNTER 2020-03-03 03:33 | Emergency (ER) | payer MEDICAID ==
[~2020-03-03] VITALS: Ht 157.4 cm; Wt 127.4 kg
[2020-03-03 03:33] VITALS: BP 152/91
--- NOTE | 2020-03-03 03:51 | ED Fall/Injury ---
General Chief Complaint: Trauma-Non Activation Stated Complaint: FALL Nursing Triage Note: Patient was brought in via EMS for a fall. Patient states that she was walking to the bathroom and fell. Patient is complaining of right ankle pain. Patient has minimal swelling on that side. EMS started an IV in her left forearm. EMS gave patient 50 mcg of Fentanyl and 4 mg of Zofran. Source: patient Exam Limitations: no limitations History of Present Illness Date Seen by Provider: Mar 03, 2020 Time Seen by Provider: 03:36 Initial Comments The patient presents to ER by EMS from home with chief complaint she was getting up to the bathroom and she fell twisting her right ankle causing pain on the lateral side. She has no ability to bear weight on it immediately after the fall. EMS was summonsed by her and gave her 50 g of fentanyl and 4 mg of Zofran. The patient claims is a lot of pain and then promptly falls asleep in the middle of our conversation. She is easily aroused and denies any numbness, tingling. No previous fracture or surgery to her ankle. She has had a sprain of this ankle before. She says it is much better after the fentanyl and the splint. She denies any worse than normal shortness of breath coughing, fever, vomiting, dysuria or diarrhea. Allergies and Home Medications Allergies Coded Allergies: doxycycline (Unverified Allergy, Mild, nauseated, 08/01/09) spinach (Unverified Allergy, Mild, 08/01/09) alprazolam (Verified Allergy, Unknown, 07/18/19) diazepam (Verified Allergy, Unknown, 07/18/19) sumatriptan (Verified Allergy, Unknown, 07/18/19) Home Medications Albuterol Sulfate 1 Puff Puff, 2 PUFF IH Q4H 1 PUFF = 90 MCG Prescribed by: ALBA FELTON on 10/21/19 1526 Atorvastatin 20 Mg Tablet, 20 MG PO HS, (Reported) Azithromycin 250 Mg Tablet, 250 MG PO UD TAKE 2 TABLETS ON DAY ONE THEN TAKE 1 TABLET DAILY FOR FOUR MORE DAYS Prescribed by: FIFI WALKER on 07/18/19 0851 Butalb/Acetaminophen/Caffeine 1 Each Tablet, 1 EACH PO Q6H PRN for PAIN-MODERATE (5-7) Prescribed by: KAYLEE GIVENS on 01/30/20 0242 Cephalexin 500 Mg Capsule, 500 MG PO TID Prescribed by: EMILY DOMÍNGUEZ on 02/01/20 0237 Cephalexin Monohydrate 500 Mg Capsule, 1 EACH PO QID, (Reported) Ciprofloxacin 500 Mg Tablet, 1 TAB PO BID FOR INFECTION Prescribed by: BRAULIO NASH on 04/24/132100 Cyclobenzaprine HCl 10 Mg Tablet, 10 MG PO Q8H PRN for SPASMS Prescribed by: AMBREEN LEGER on 01/24/202145 Furosemide 40 Mg Tablet, 1 EACH PO BID, (Reported) PT TAKES 40MG PO BID Gabapentin 600 Mg Tab, 600 MG PO QID, (Reported) Haloperidol 10 Mg Tablet, 10 MG PO TID Prescribed by: FIFI WALKER on 07/18/19 0851 Hum Insulin Nph/Reg Insulin Hm 10 Ml Vial, 15 UNITS SQ TID, (Reported) Hydrocodone Bit/Acetaminophen 1 Ea Tablet, 1 EA PO q6 Prescribed by: EMILY DOMÍNGUEZ on 02/01/20236 Insulin Glargine,Hum.rec.anlog 300 Unit/3 Ml Insuln.pen, 10 UNITS SQ HS Prescribed by: NNEKA ROBINS on 12/14/12 1141 Ipratropium [place] 0.5 Mg/2.5 Ml Nebu, 0.5 MG IH Q6H PRN, (Reported) Ipratropium/Albuterol Sulfate 4 Gm Aer.w.adap, 1 PUFF IH QID, (Reported) Loratadine 10 Mg Tablet, 10 MG PO DAILY, (Reported) Lurasidone Hcl 80 Mg Tablet, 80 MG PO HS, (Reported) Lurasidone Hcl 40 Mg Tablet, 40 MG PO DAILY, (Reported) TAKES IN AM DAILY Meclizine Hcl 25 Mg Tablet, 1 EACH PO TID PRN, (Reported) Meloxicam 7.5 Mg Tablet, 7.5 MG PO DAILY, (Reported) Nitrofurantoin/Nitrofuran Mac 100 Mg Capsule, 100 MG PO BID Prescribed by: GUALBERTO DOUGHERTY on 04/14/131755 Nystatin 1 Each Powder.ea., 0 TOP BID PRN SPRINKLE ON AFFECTED AREA Prescribed by: GUALBERTO DOUGHERTY on 04/14/131754 Olanzapine 10 Mg Tab, 10 MG PO BID PRN for ANXIETY, (Reported) Ondansetron 4 Mg Tab.rapdis, 4 MG PO Q6H PRN for NAUSEA/VOMITING Prescribed by: TASH ALARCON on 01/22/202056 Oxcarbazepine 150 Mg Tablet, 300 MG PO DAILY, (Reported) Oxycodone HCl/Acetaminophen 1 Each Tablet, 1 EACH PO Q4H PRN for PAIN-SEVERE (8- 10) Prescribed by: TASH ALARCON on 05/31/19 0058 Oxycodone HCl/Acetaminophen 1 Each Tablet, 1 TAB PO Q6H PRN for PAIN-SEVERE (8- 10) Prescribed by: TASH ALARCON on 07/22/19 015 Paroxetine Hcl 20 Mg Tablet, 20 MG PO HS, (Reported) Potassium Chloride 10 Meq Tab.prt.sr, 1 EACH PO BID WITH MEALS, (Reported) Prednisone 20 Mg Tab, 40 MG PO DAILY Prescribed by: TASH ALARCON on 07/22/19156 Prednisone 50 Mg Tab, 50 MG PO DAILY Prescribed by: ALBA FELTON on 10/21/19 1526 Sumatriptan 10 Gm Powder, 100 MG PO BID PRN, (Reported) Tiotropium [place] 1 Inh Aerp, 1 CAP IH DAILY, (Reported) 18 MCG CAPS/ONE INHALED DAILY Topiramate 100 Mg Tab, 200 MG PO HS, (Reported) PT TAKES 200MG TWICE DAILY AND 100MG AT NOON Topiramate 100 Mg Tab, 100 MG PO TID, (Reported) Tramadol Hcl 50 Mg Tablet, 100 MG PO Q6H PRN, (Reported) Trazodone HCl 100 Mg Tablet, 200 MG PO HS Prescribed by: FIFI WALKER on 07/18/19 0851 Trazodone Hcl 100 Mg Tab, 200 MG PO HS, (Reported) Warfarin Sodium 10 Mg Tablet, 10 MG PO DAILY@1800 Prescribed by: NNEKA ROBINS on 12/14/12 1141 Patient Home Medication List Home Medication List Reviewed: Yes Review of Systems Review of Systems Constitutional: No chills, No diaphoresis, No fever Eyes: Denies Blindness, Denies Drainage Ears, Nose, Mouth, Throat: denies ear pain, denies nose pain Respiratory: No cough, No short of breath Cardiovascular: No chest pain, No edema, No palpitations Gastrointestinal: No abdominal pain; nausea; No vomiting Genitourinary: No discharge, No dysuria Musculoskeletal: see HPI; No back pain; joint pain All Other Systems Reviewed Negative Unless Noted: Yes Past Umlcusu-Uahzuq-Uuiykm Hx Patient Social History Alcohol Use: Denies Use Recreational Drug Use: No Smoking Status: Current Everyday Smoker Type Used: Cigarettes 2nd Hand Smoke Exposure: Yes Recent Foreign Travel: No Contact w/Someone Who Travel: No Recent Infectious Disease Expo: No Recent Hopitalizations: No Physical Abuse: No Sexual Abuse: No Mistreated: No Fear: No Immunizations Up To Date Date of Pneumonia Vaccine: Dec 14, 2012 Date of Influenza Vaccine: Mar 04, 2013 Seasonal Allergies Seasonal Allergies: No Past Medical History Surgeries: Yes (HIP, suprapubic catheter, Dental) Appendectomy, Gallbladder, Hysterectomy, Orthopedic Respiratory: Yes Asthma, Pneumonia, Chronic Bronchitis, Pulmonary Embolism, COPD, Emphysema Cardiac: Yes (CHF) Neurological: Yes Neuropathy 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 Disorders: No 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 Sexually Transmitted Disease: No HIV/AIDS: No Genitourinary: Yes Kidney Stones, Neurogenic Bladder, UTI-Chronic Gastrointestinal: Yes Abdominal Hernia, Gastroesophageal Reflux, Chronic Constipation, Irritable Bowel Musculoskeletal: Yes Arthritis, Fibromyalgia, Back Injury, Chronic Back Pain, Fractures, Spasms Endocrine: Yes Diabetes, Insulin dep, Hypothyroidsim HEENT: No Hearing Impairment: Hard of Hearing Cancer: Yes Ovarian Psychosocial: Yes ADD/ADHD, Bipolar, Schizophrenia Integumentary: No Blood Disorders: No Family Medical History No Pertinent Family Hx Physical Exam Vital Signs Vital Signs - First Documented 03/03/20 03:33 Temp 37.1 Pulse 108 Resp 22 B/P (MAP) 152/91 (111) Pulse Ox 95 O2 Delivery Nasal Cannula O2 Flow Rate 2.00 Capillary Refill : Less Than 3 Seconds Height, Weight, BMI Height: '" Weight: 275lbs. oz. 124.288891oi; 51.00 BMI Method:Stated General Appearance: obese, other (disheveled) Cardiovascular: normal peripheral pulses, regular rate, rhythm, no edema Respiratory: no respiratory distress (oxygen saturation 99% on room air, nonlabored breathing), no accessory muscle use Peripheral Pulses: 2+ Dorsalis Pedis (R), 2+ Left Dors-Pedis (L) Extremities: swelling (mild joint effusion on the lateral right ankle), other (tenderness to palpation over the lateral posterior malleolus of the right ankle. No tenderness over the dorsum of the foot.) Neurologic/Psychiatric: alert, normal mood/affect, oriented x 3 Skin: warm/dry, ecchymosis (mild right ankle) [place] Coma Score Best Eye Response: (4) Open Spontaneously Best Verbal Response: (5) Oriented Best Motor Response: (6) Obeys Commands Dinesh Total: 15 Progress/Results/Core Measures Results/Orders My Orders Orders - MAUREEN PARSONS Ankle 3 View Right (03/03/20 03:46) Accucheck Stat ONCE (03/03/20 03:51) Vital Signs/I&O 03/03/20 03:33 Temp 37.1 Pulse 108 Resp 22 B/P (MAP) 152/91 (111) Pulse Ox 95 O2 Delivery Nasal Cannula O2 Flow Rate 2.00 Blood Pressure Mean: 111 Progress Progress Note : Time: 03:51 Progress Note X-ray of the right ankle 3 views. She appears to have enough pain medication for the moment. Obtain an Accu-Chek and give her an ice pack. Diagnostic Imaging Diagonstic Imaging: Xray Plain Films/CT/US/NM/MRI: ankle Comments No acute osseous fracture. Reviewed: Reviewed by Me Departure Impression Primary Impression: Fall Qualified Codes: W19.XXXA - Unspecified fall, initial encounter Additional Impression: Right ankle sprain Qualified Codes: S93.401A - Sprain of unspecified ligament of right ankle, initial encounter Disposition: 01 HOME, SELF-CARE Condition: Stable Departure-Patient Inst. Decision time for Depature: 04:00 Referrals: JAILENE DANIEL MD (PCP/Family) Primary Care Physician Patient Instructions: Ankle Sprain (DC) Add. Discharge Instructions: Keep your ankle elevated above the level of your heart when possible. Wrap it with a compressive dressing such as an Torres wrap. Apply ice for 20 minutes every 2 hours while awake for the first 2 days. Tylenol 650 mg every 6 hours as necessary for pain. All discharge instructions reviewed with patient and/or family. Voiced understanding. MAUREEN PARSONS Mar 03, 2020 03:51
[2020-03-03] MEDS ORDERED: ACETAMINOPHEN 325 MG TABLET PO ONE (04:15)
--- NOTE | 2020-03-03 07:06 | Diagnostic Imaging Report ---
INDICATION: Fall. Right ankle pain. FINDINGS: 3 views. There is considerable soft tissue swelling over the lateral malleolus. There does appear to be a very small avulsion fracture off the tip of the fibula. Ankle mortise is in good alignment. Articulating surfaces are smooth. IMPRESSION: Findings consistent with very small avulsion fracture tip of the fibula with considerable soft tissue swelling. Dictated by: Dictated on workstation # [id number]
--- NOTE | 2020-03-03 10:20 | NUR ---
SPOKE WITH PATIENT REGARDING XRAY AND FINDING. PT. VOICED UNDERSTANDING. HAS APPOINTMENT WITH DR. DANIEL THIS AM AND WILL RELATE TO HIM FINDING ON XRAY.
== END 2020-03-03 04:14 | disposition home or self-care (01) ==
LOC: EDUNIT# 03:33 → ER FS 03:35
DX: S93.401A Sprain of unspecified ligament of right ankle, initial encounter (principal); J43.9 Emphysema, unspecified; E11.40 Type 2 diabetes mellitus with diabetic neuropathy, unspecified; K58.1 Irritable bowel syndrome with constipation; F17.210 Nicotine dependence, cigarettes, uncomplicated; I50.9 Heart failure, unspecified; M79.7 Fibromyalgia; G89.29 Other chronic pain; M54.9 Dorsalgia, unspecified; F31.9 Bipolar disorder, unspecified; F20.9 Schizophrenia, unspecified; Z85.43 Personal history of malignant neoplasm of ovary; Z88.1 Allergy status to other antibiotic agents; Z88.8 Allergy status to other drugs, medicaments and biological substances; Z79.4 Long term (current) use of insulin; Z79.52 Long term (current) use of systemic steroids; Z79.01 Long term (current) use of anticoagulants; Z86.711 Personal history of pulmonary embolism; W18.39XA Other fall on same level, initial encounter
CPT/HCPCS: 73610; 82962

== ENCOUNTER 2020-03-03 22:28 | Emergency (ER) | payer MEDICAID ==
[~2020-03-03] VITALS: Ht 157 cm; Wt 151.9 kg
--- NOTE | 2020-03-03 22:34 | ED General ---
General Stated Complaint: BACK PAIN Source of Information: Patient, EMS Exam Limitations: No Limitations History of Present Illness Date Seen by Provider: Mar 03, 2020 Time Seen by Provider: 22:34 Initial Comments Patient presents with complaint of right ankle pain. States she was seen in this ER at 3 o'clock this morning and diagnosed with a right ankle fracture and given an Torres wrap and sent home. She is to follow-up with orthopedics tomorrow. Comes in by EMS tonight. No new injuries Allergies and Home Medications Allergies Coded Allergies: doxycycline (Unverified Allergy, Mild, nauseated, 08/01/09) spinach (Unverified Allergy, Mild, 08/01/09) alprazolam (Verified Allergy, Unknown, 07/18/19) diazepam (Verified Allergy, Unknown, 07/18/19) sumatriptan (Verified Allergy, Unknown, 07/18/19) Home Medications Albuterol Sulfate 1 Puff Puff, 2 PUFF IH Q4H 1 PUFF = 90 MCG Prescribed by: ALBA FELTON on 10/21/19 1526 Atorvastatin 20 Mg Tablet, 20 MG PO HS, (Reported) Azithromycin 250 Mg Tablet, 250 MG PO UD TAKE 2 TABLETS ON DAY ONE THEN TAKE 1 TABLET DAILY FOR FOUR MORE DAYS Prescribed by: FIFI WALKER on 07/18/19 0851 Butalb/Acetaminophen/Caffeine 1 Each Tablet, 1 EACH PO Q6H PRN for PAIN-MODERATE (5-7) Prescribed by: KAYLEE GIVENS on 01/30/20 0242 Cephalexin 500 Mg Capsule, 500 MG PO TID Prescribed by: EMILY DOMÍNGUEZ on 02/01/20 0237 Cephalexin Monohydrate 500 Mg Capsule, 1 EACH PO QID, (Reported) Ciprofloxacin 500 Mg Tablet, 1 TAB PO BID FOR INFECTION Prescribed by: BRAULIO NASH on 04/24/13 210 Cyclobenzaprine HCl 10 Mg Tablet, 10 MG PO Q8H PRN for SPASMS Prescribed by: AMBREEN LEGER on 01/24/202145 Furosemide 40 Mg Tablet, 1 EACH PO BID, (Reported) PT TAKES 40MG PO BID Gabapentin 600 Mg Tab, 600 MG PO QID, (Reported) Haloperidol 10 Mg Tablet, 10 MG PO TID Prescribed by: FIFI WALKER on 07/18/19 0851 Hum Insulin Nph/Reg Insulin Hm 10 Ml Vial, 15 UNITS SQ TID, (Reported) Hydrocodone Bit/Acetaminophen 1 Ea Tablet, 1 EA PO q6 Prescribed by: EMILY DOMÍNGUEZ on 02/01/20 0237 Insulin Glargine,Hum.rec.anlog 300 Unit/3 Ml Insuln.pen, 10 UNITS SQ HS Prescribed by: NNEKA ROBINS on 12/14/12 1141 Ipratropium [place] 0.5 Mg/2.5 Ml Nebu, 0.5 MG IH Q6H PRN, (Reported) Ipratropium/Albuterol Sulfate 4 Gm Aer.w.adap, 1 PUFF IH QID, (Reported) Loratadine 10 Mg Tablet, 10 MG PO DAILY, (Reported) Lurasidone Hcl 80 Mg Tablet, 80 MG PO HS, (Reported) Lurasidone Hcl 40 Mg Tablet, 40 MG PO DAILY, (Reported) TAKES IN AM DAILY Meclizine Hcl 25 Mg Tablet, 1 EACH PO TID PRN, (Reported) Meloxicam 7.5 Mg Tablet, 7.5 MG PO DAILY, (Reported) Nitrofurantoin/Nitrofuran Mac 100 Mg Capsule, 100 MG PO BID Prescribed by: GUALBERTO DOUGHERTY on 04/14/131755 Nystatin 1 Each Powder.ea., 0 TOP BID PRN SPRINKLE ON AFFECTED AREA Prescribed by: GUALBERTO DOUGHERTY on 04/14/131754 Olanzapine 10 Mg Tab, 10 MG PO BID PRN for ANXIETY, (Reported) Ondansetron 4 Mg Tab.rapdis, 4 MG PO Q6H PRN for NAUSEA/VOMITING Prescribed by: TASH ALARCON on 01/22/202056 Oxcarbazepine 150 Mg Tablet, 300 MG PO DAILY, (Reported) Oxycodone HCl/Acetaminophen 1 Each Tablet, 1 EACH PO Q4H PRN for PAIN-SEVERE (8- 10) Prescribed by: TASH SANDOVALRT on 05/31/19 005 Oxycodone HCl/Acetaminophen 1 Each Tablet, 1 TAB PO Q6H PRN for PAIN-SEVERE (8- 10) Prescribed by: TASH SANDOVALRT on 07/22/19 0157 Paroxetine Hcl 20 Mg Tablet, 20 MG PO HS, (Reported) Potassium Chloride 10 Meq Tab.prt.sr, 1 EACH PO BID WITH MEALS, (Reported) Prednisone 20 Mg Tab, 40 MG PO DAILY Prescribed by: TASH ALARCON on 07/22/19 0157 Prednisone 50 Mg Tab, 50 MG PO DAILY Prescribed by: ALBA FELTON on 10/21/19 1526 Sumatriptan 10 Gm Powder, 100 MG PO BID PRN, (Reported) Tiotropium [place] 1 Inh Aerp, 1 CAP IH DAILY, (Reported) 18 MCG CAPS/ONE INHALED DAILY Topiramate 100 Mg Tab, 200 MG PO HS, (Reported) PT TAKES 200MG TWICE DAILY AND 100MG AT NOON Topiramate 100 Mg Tab, 100 MG PO TID, (Reported) Tramadol Hcl 50 Mg Tablet, 100 MG PO Q6H PRN, (Reported) Trazodone HCl 100 Mg Tablet, 200 MG PO HS Prescribed by: FIFI WALKER on 07/18/19 0851 Trazodone Hcl 100 Mg Tab, 200 MG PO HS, (Reported) Warfarin Sodium 10 Mg Tablet, 10 MG PO DAILY@1800 Prescribed by: NNEKA ROBINS on 12/14/12 1141 Patient Home Medication List Home Medication List Reviewed: Yes Review of Systems Review of Systems Constitutional: no symptoms reported Musculoskeletal: see HPI, joint pain (R ankle) Skin: No change in color, No rash Psychiatric/Neurological: Denies Numbness, Denies Paresthesia Past Vgbuupn-Mgaugj-Yceecj Hx Past Med/Social Hx: Reviewed Nursing Past Med/Soc Hx Patient Social History Type Used: Cigarettes 2nd Hand Smoke Exposure: Yes Recent Foreign Travel: No Contact w/Someone Who Travel: No Recent Hopitalizations: No Immunizations Up To Date Date of Pneumonia Vaccine: Dec 14, 2012 Date of Influenza Vaccine: Mar 04, 2013 Seasonal Allergies Seasonal Allergies: No Past Medical History Surgeries: Yes (HIP, suprapubic catheter, Dental) Appendectomy, Gallbladder, Hysterectomy, Orthopedic Respiratory: Yes Asthma, Pneumonia, Chronic Bronchitis, Pulmonary Embolism, COPD, Emphysema Cardiac: Yes (CHF) Neurological: Yes Neuropathy 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 Disorders: No 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 [employer] History: Hysterectomy Sexually Transmitted Disease: No HIV/AIDS: No Genitourinary: Yes Kidney Stones, Neurogenic Bladder, UTI-Chronic Gastrointestinal: Yes Abdominal Hernia, Gastroesophageal Reflux, Chronic Constipation, Irritable Bowel Musculoskeletal: Yes Arthritis, Fibromyalgia, Back Injury, Chronic Back Pain, Fractures, Spasms Endocrine: Yes Diabetes, Insulin dep, Hypothyroidsim HEENT: No Hearing Impairment: Hard of Hearing Cancer: Yes Ovarian Psychosocial: Yes ADD/ADHD, Bipolar, Schizophrenia Integumentary: No Blood Disorders: No Family Medical History No Pertinent Family Hx Physical Exam Vital Signs Vital Signs - First Documented 03/03/20 03/03/20 22:35 23:02 Temp 36.1 Pulse 89 Resp 17 B/P (MAP) 116/82 (93) Pulse Ox 98 O2 Delivery NIV Bilevel O2 Flow Rate 2.00 Capillary Refill : Height, Weight, BMI Height: '" Weight: 275lbs. oz. 124.742959cv; 51.00 BMI Method:Stated General Appearance: No Apparent Distress, WD/WN Extremity: Normal Capillary Refill, Normal Inspection, Other (mild swelling lat mall w mild TTP. No gross deformity. NVI) Neurologic/Psychiatric: Alert, No Motor/Sensory Deficits Skin: Normal Color, Warm/Dry; No Ecchymosis Progress/Results/Core Measures Suspected Sepsis SIRS Temperature: Pulse: Respiratory Rate: Blood Pressure / Mean: Results/Orders Vital Signs/I&O 03/03/20 03/03/20 22:35 23:02 Temp 36.1 Pulse 89 79 Resp 17 18 B/P (MAP) 116/82 (93) 121/67 Pulse Ox 98 98 O2 Delivery NIV Bilevel Nasal Cannula O2 Flow Rate 2.00 Capillary Refill : Progress Note : Progress Note Seen in this ER last night, less than 24 hours ago and diagnosed with an avulsion fracture of her distal fibula. Given appropriate outpatient care, patient presents via EMS tonight complaining of ankle pain with no new injury. Pain out of proportion to clinical or x-ray findings. Given a walking boot for comfort. Advised RICE and follow up w PCP or Ortho Departure Impression Primary Impression: Closed avulsion fracture of distal fibula Qualified Codes: S82.831D - Other fracture of upper and lower end of right fibula, subsequent encounter for closed fracture with routine healing Disposition: 01 HOME, SELF-CARE Condition: Stable Departure-Patient Inst. Decision time for Depature: 22:36 Referrals: JAILENE DANIEL MD (PCP/Family) Primary Care Physician Patient Instructions: Avulsion Fracture (DC) Add. Discharge Instructions: follow up with your PCP or Ortho Doctor in 1 week. ALBA FELTON DO Mar 03, 2020 22:34
[2020-03-03 23:02] VITALS: BP 121/67
== END 2020-03-03 23:02 | disposition home or self-care (01) ==
LOC: EDUNIT# 22:28 → ER FS 22:29
DX: S82.831D Other fracture of upper and lower end of right fibula, subsequent encounter for closed fracture with routine healing (principal); J43.9 Emphysema, unspecified; I50.9 Heart failure, unspecified; E11.40 Type 2 diabetes mellitus with diabetic neuropathy, unspecified; K58.1 Irritable bowel syndrome with constipation; M79.7 Fibromyalgia; M54.9 Dorsalgia, unspecified; F31.9 Bipolar disorder, unspecified; F20.9 Schizophrenia, unspecified; Z85.43 Personal history of malignant neoplasm of ovary; Z88.1 Allergy status to other antibiotic agents; Z88.8 Allergy status to other drugs, medicaments and biological substances; Z86.711 Personal history of pulmonary embolism; Z79.4 Long term (current) use of insulin; Z79.52 Long term (current) use of systemic steroids; Z79.01 Long term (current) use of anticoagulants; Z77.22 Contact with and (suspected) exposure to environmental tobacco smoke (acute) (chronic); X58.XXXD Exposure to other specified factors, subsequent encounter
CPT/HCPCS: 99283

== ENCOUNTER → 2020-03-04 | Outpatient (CLI) | payer MEDICAID ==
--- NOTE | 2020-03-04 14:53 | Diagnostic Imaging Report ---
Indication: Fall with pain in the left leg. Time of exam: 2:04 PM Frontal and lateral views of the left tibia and fibula were obtained. Alignment at the knee and ankle appears normal. Tibia and fibula are intact. No fractures are seen. Impression: No acute bony abnormality is detected. Dictated by: Dictated on workstation # [id number]
--- NOTE | 2020-03-04 14:53 | Diagnostic Imaging Report ---
INDICATION: Fall and left knee pain. TIME OF EXAM: 1:59 PM 3 views left knee were obtained. Intramedullary rosio transfixes distal femur. Medial and lateral joint spaces are fairly well maintained. Articular surfaces are smooth. There is some mild patellofemoral degenerative change. No fracture, dislocation or effusion is detected. IMPRESSION: Postsurgical and degenerative changes. No acute bony abnormality is detected. Dictated by: Dictated on workstation # [id number]
== END ==
LOC: RAD FS 13:48
PROVIDERS: ATTEND Nurse Practitioner
DX: S80.12XA Contusion of left lower leg, initial encounter (principal); M17.12 Unilateral primary osteoarthritis, left knee; W19.XXXA Unspecified fall, initial encounter; Z98.890 Other specified postprocedural states
CPT/HCPCS: 73562; 73590

== ENCOUNTER → 2020-03-18 | Outpatient (CLI) | payer MEDICAID ==
--- NOTE | 2020-03-18 10:52 | Diagnostic Imaging Report ---
INDICATION: SPRAIN OF OTHER LIGAMENT OF RIGHT ANKLE, INITIAL ENCOUNTER COMPARISON: 03/03/2020. FINDINGS: 3 views of the right ankle were obtained. There is no acute fracture or dislocation. No focal osseous lesions are seen. There is moderate medial soft tissue swelling. There are no radiopaque foreign bodies. IMPRESSION: 1. Moderate medial soft tissue swelling, but no radiographic evidence of acute fracture or dislocation of the right ankle. Dictated by: Dictated on workstation # [id number]
== END ==
LOC: RAD FS 10:16
PROVIDERS: ATTEND Nurse Practitioner
DX: S93.491A Sprain of other ligament of right ankle, initial encounter (principal); X58.XXXA Exposure to other specified factors, initial encounter
CPT/HCPCS: 73610

== ENCOUNTER 2020-03-25 20:51 | Emergency (ER) | payer MEDICAID ==
[~2020-03-25] VITALS: Ht 157.4 cm; Wt 136.0 kg
--- NOTE | 2020-03-25 21:10 | ED GU-Female ---
General Chief Complaint: - Urinary Stated Complaint: BLOATED/SWOLLEN,PAINFUL URINATION Source: patient History of Present Illness Date Seen by Provider: Mar 25, 2020 Time Seen by Provider: 21:00 Initial Comments 49 y/o female presents w c/o "bloating" and "diarrhea" today. Denies abdominal pain. Eating without nausea or vomiting. Also having nasal congestion and cough for last 1 wk. Hx of COPD and On home oxygen @ 2 L/ nc. No fever or chills, no soa, but wheezing. Allergies and Home Medications Allergies Coded Allergies: doxycycline (Unverified Allergy, Mild, nauseated, 08/01/09) spinach (Unverified Allergy, Mild, 08/01/09) alprazolam (Verified Allergy, Unknown, 07/18/19) diazepam (Verified Allergy, Unknown, 07/18/19) sumatriptan (Verified Allergy, Unknown, 07/18/19) Home Medications Albuterol Sulfate 1 Puff Puff, 2 PUFF IH Q4H 1 PUFF = 90 MCG Prescribed by: ALBA FELTON on 10/21/19 1526 Atorvastatin 20 Mg Tablet, 20 MG PO HS, (Reported) Azithromycin 250 Mg Tablet, 250 MG PO UD TAKE 2 TABLETS ON DAY ONE THEN TAKE 1 TABLET DAILY FOR FOUR MORE DAYS Prescribed by: FIFI WALKER on 07/18/19 0851 Butalb/Acetaminophen/Caffeine 1 Each Tablet, 1 EACH PO Q6H PRN for PAIN-MODERATE (5-7) Prescribed by: KAYLEE GIVENS on 01/30/20 0242 Cephalexin 500 Mg Capsule, 500 MG PO TID Prescribed by: EMILY DOMÍNGUEZ on 02/01/20 0237 Cephalexin Monohydrate 500 Mg Capsule, 1 EACH PO QID, (Reported) Ciprofloxacin 500 Mg Tablet, 1 TAB PO BID FOR INFECTION Prescribed by: BRAULIO NASH on 04/24/132100 Cyclobenzaprine HCl 10 Mg Tablet, 10 MG PO Q8H PRN for SPASMS Prescribed by: AMBREEN LEGER on 01/24/20 2146 Furosemide 40 Mg Tablet, 1 EACH PO BID, (Reported) PT TAKES 40MG PO BID Gabapentin 600 Mg Tab, 600 MG PO QID, (Reported) Haloperidol 10 Mg Tablet, 10 MG PO TID Prescribed by: FIFI WALKER on 07/18/19 0851 Hum Insulin Nph/Reg Insulin Hm 10 Ml Vial, 15 UNITS SQ TID, (Reported) Hydrocodone Bit/Acetaminophen 1 Ea Tablet, 1 EA PO q6 Prescribed by: EMILY DOMÍNGUEZ on 02/01/20 023 Insulin Glargine,Hum.rec.anlog 300 Unit/3 Ml Insuln.pen, 10 UNITS SQ HS Prescribed by: NNEKA ROBINS on 12/14/12 1141 Ipratropium [place] 0.5 Mg/2.5 Ml Nebu, 0.5 MG IH Q6H PRN, (Reported) Ipratropium/Albuterol Sulfate 4 Gm Aer.w.adap, 1 PUFF IH QID, (Reported) Loratadine 10 Mg Tablet, 10 MG PO DAILY, (Reported) Lurasidone Hcl 80 Mg Tablet, 80 MG PO HS, (Reported) Lurasidone Hcl 40 Mg Tablet, 40 MG PO DAILY, (Reported) TAKES IN AM DAILY Meclizine Hcl 25 Mg Tablet, 1 EACH PO TID PRN, (Reported) Meloxicam 7.5 Mg Tablet, 7.5 MG PO DAILY, (Reported) Nitrofurantoin/Nitrofuran Mac 100 Mg Capsule, 100 MG PO BID Prescribed by: GUALBERTO DOUGHERTY on 04/14/13 175 Nystatin 1 Each Powder.ea., 0 TOP BID PRN SPRINKLE ON AFFECTED AREA Prescribed by: GUALBERTO DOUGHERTY on 04/14/131754 Olanzapine 10 Mg Tab, 10 MG PO BID PRN for ANXIETY, (Reported) Ondansetron 4 Mg Tab.rapdis, 4 MG PO Q6H PRN for NAUSEA/VOMITING Prescribed by: TASH ALARCON on 01/22/202056 Oxcarbazepine 150 Mg Tablet, 300 MG PO DAILY, (Reported) Oxycodone HCl/Acetaminophen 1 Each Tablet, 1 EACH PO Q4H PRN for PAIN-SEVERE (8- 10) Prescribed by: TASH ALARCON on 05/31/19 005 Oxycodone HCl/Acetaminophen 1 Each Tablet, 1 TAB PO Q6H PRN for PAIN-SEVERE (8- 10) Prescribed by: TASH ALARCON on 07/22/19 0157 Paroxetine Hcl 20 Mg Tablet, 20 MG PO HS, (Reported) Potassium Chloride 10 Meq Tab.prt.sr, 1 EACH PO BID WITH MEALS, (Reported) Prednisone 20 Mg Tab, 40 MG PO DAILY Prescribed by: TASH ALARCON on 07/22/19 0157 Prednisone 50 Mg Tab, 50 MG PO DAILY Prescribed by: ALBA FELTON on 10/21/19 1526 Prednisone 50 Mg Tab, 50 MG PO DAILY Prescribed by: ALBA FELTON on 03/25/20 2201 Sumatriptan 10 Gm Powder, 100 MG PO BID PRN, (Reported) Tiotropium [place] 1 Inh Aerp, 1 CAP IH DAILY, (Reported) 18 MCG CAPS/ONE INHALED DAILY Topiramate 100 Mg Tab, 200 MG PO HS, (Reported) PT TAKES 200MG TWICE DAILY AND 100MG AT NOON Topiramate 100 Mg Tab, 100 MG PO TID, (Reported) Tramadol Hcl 50 Mg Tablet, 100 MG PO Q6H PRN, (Reported) Trazodone HCl 100 Mg Tablet, 200 MG PO HS Prescribed by: FIFI WALKER on 07/18/19 0851 Trazodone Hcl 100 Mg Tab, 200 MG PO HS, (Reported) Warfarin Sodium 10 Mg Tablet, 10 MG PO DAILY@1800 Prescribed by: NNEKA ROBINS on 12/14/12 1141 Patient Home Medication List Home Medication List Reviewed: Yes Review of Systems Review of Systems Constitutional: No chills, No fever, No malaise, No weakness EENTM: nose congestion; No ear discharge, No ear pain, No throat pain, No throat swelling Respiratory: cough, phlegm, wheezing Cardiovascular: No chest pain; edema (chronic); No palpitations, No syncope Gastrointestinal: No abdominal pain; diarrhea; No heartburn, No loss of appetite, No melena, No nausea, No vomiting; other ("bloated") Genitourinary: dysuria, frequency Musculoskeletal: No back pain, No joint pain Past Skzvrqr-Piegud-Xwdwsl Hx Past Med/Social Hx: Reviewed Nursing Past Med/Soc Hx Patient Social History Type Used: Cigarettes 2nd Hand Smoke Exposure: Yes Recent Foreign Travel: No Contact w/Someone Who Travel: No Recent Hopitalizations: No Immunizations Up To Date Date of Pneumonia Vaccine: Dec 14, 2012 Date of Influenza Vaccine: Mar 04, 2013 Seasonal Allergies Seasonal Allergies: No Past Medical History Surgeries: Yes (HIP, suprapubic catheter, Dental) Appendectomy, Gallbladder, Hysterectomy, Orthopedic Respiratory: Yes Asthma, Pneumonia, Chronic Bronchitis, Pulmonary Embolism, COPD, Emphysema Cardiac: Yes (CHF) Neurological: Yes Neuropathy 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 Disorders: No 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 [employer]ER History: Hysterectomy Sexually Transmitted Disease: No HIV/AIDS: No Genitourinary: Yes Kidney Stones, Neurogenic Bladder, UTI-Chronic Gastrointestinal: Yes Abdominal Hernia, Gastroesophageal Reflux, Chronic Constipation, Irritable Bowel Musculoskeletal: Yes Arthritis, Fibromyalgia, Back Injury, Chronic Back Pain, Fractures, Spasms Endocrine: Yes Diabetes, Insulin dep, Hypothyroidsim HEENT: No Hearing Impairment: Hard of Hearing Cancer: Yes Ovarian Psychosocial: Yes ADD/ADHD, Bipolar, Schizophrenia Integumentary: No Blood Disorders: No Family Medical History No Pertinent Family Hx Physical Exam Vital Signs Vital Signs - First Documented 03/25/20 21:00 Temp 36.8 Pulse 118 Resp 22 B/P (MAP) 158/98 (118) Pulse Ox 95 O2 Delivery Nasal Cannula O2 Flow Rate 2.00 Capillary Refill : Height, Weight, BMI Height: '" Weight: 275lbs. oz. 124.753178cj; 61.00 BMI Method:Stated General Appearance: WD/WN, no apparent distress HEENT: PERRL/EOMI, normal ENT inspection Neck: non-tender, full range of motion Cardiovascular: tachycardia (110's), other Respiratory: no respiratory distress, no accessory muscle use, wheezing (expiratory) Gastrointestinal: non tender, soft; No guarding, No rebound, No tenderness Back: normal inspection, no CVA tenderness Extremities: non-tender, normal capillary refill Neurologic/Psychiatric: alert, normal mood/affect Skin: normal color, warm/dry Progress/Results/Core Measures Suspected Sepsis SIRS Temperature: Pulse: Respiratory Rate: Laboratory Tests 03/25/20 21:30: White Blood Count 11.7H Blood Pressure / Mean: Laboratory Tests 03/25/20 21:30: Creatinine 0.82, Platelet Count 183, Total Bilirubin < 0.2 Results/Orders Lab Results Laboratory Tests Test 03/25/20 20:57 03/25/20 21:30 Range/Units Urine Color YELLOW Urine Clarity CLEAR Urine pH 6.5 5-9 Urine Specific [place] 1.010 L 1.016-1.022 Urine Protein NEGATIVE NEGATIVE Urine Glucose (UA) NEGATIVE NEGATIVE Urine Ketones NEGATIVE NEGATIVE Urine Nitrite NEGATIVE NEGATIVE Urine Bilirubin NEGATIVE NEGATIVE Urine Urobilinogen 0.2 < = 1.0 MG/DL Urine Leukocyte Esterase 1+ H NEGATIVE Urine RBC (Auto) NEGATIVE NEGATIVE Urine RBC NONE /HPF Urine WBC 2-5 /HPF Urine Squamous Epithelial Cells 2-5 /HPF Urine Crystals NONE /LPF Urine Bacteria MODERATE H /HPF Urine Casts NONE /LPF Urine Mucus NEGATIVE /LPF Urine Culture Indicated YES White Blood Count 11.7 H 4.3-11.0 10^3/uL Red Blood Count 4.40 4.35-5.85 10^6/uL Hemoglobin 14.5 11.5-16.0 G/DL Hematocrit 44 35-52 % Mean Corpuscular Volume 101 H 80-99 FL Mean Corpuscular Hemoglobin 33 25-34 PG Mean Corpuscular Hemoglobin Concent 33 32-36 G/DL Red Cell Distribution Width 13.9 10.0-14.5 % Platelet Count 183 130-400 10^3/uL Mean Platelet Volume 9.9 7.4-10.4 FL Immature Granulocyte % (Auto) 1 % Neutrophils (%) (Auto) 74 42-75 % Lymphocytes (%) (Auto) 19 12-44 % Monocytes (%) (Auto) 5 0-12 % Eosinophils (%) (Auto) 1 0-10 % Basophils (%) (Auto) 1 0-10 % Neutrophils # (Auto) 8.7 H 1.8-7.8 X 10^3 Lymphocytes # (Auto) 2.2 1.0-4.0 X 10^3 Monocytes # (Auto) 0.6 0.0-1.0 X 10^3 Eosinophils # (Auto) 0.2 0.0-0.3 10^3/uL Basophils # (Auto) 0.1 0.0-0.1 10^3/uL Immature Granulocyte # (Auto) 0.1 0.0-0.1 10^3/uL Sodium Level 138 135-145 MMOL/L Potassium Level 4.3 3.6-5.0 MMOL/L Chloride Level 107 98-107 MMOL/L Carbon Dioxide Level 21 21-32 MMOL/L Anion Gap 10 5-14 MMOL/L Blood Urea Nitrogen 5 L 7-18 MG/DL Creatinine 0.82 0.60-1.30 MG/DL Estimat Glomerular Filtration Rate > 60 BUN/Creatinine Ratio 6 Glucose Level 138 H 70-105 MG/DL Calcium Level 8.5 8.5-10.1 MG/DL Corrected Calcium 8.6 8.5-10.1 MG/DL Total Bilirubin < 0.2 0.1-1.0 MG/DL Aspartate Amino Transf (AST/SGOT) 18 5-34 U/L Alanine Aminotransferase (ALT/SGPT) 19 0-55 U/L Alkaline Phosphatase 195 H 40-136 U/L Total Protein 6.7 6.4-8.2 GM/DL Albumin 3.9 3.2-4.5 GM/DL My Orders Orders - ALBA FELTON DO Cbc With Automated Diff (03/25/20 21:03) Comprehensive Metabolic Panel (03/25/20 21:03) Acute Abd Series (03/25/20 21:03) Prednisone Tablet (Deltasone Tablet) (03/25/20 21:15) Albuterol/Ipra Inhalation Soln (Duoneb I (03/25/20 21:15) Svn Small Volume Nebulizer (03/25/20 21:03) Urinalysis (03/25/20 21:39) Urine Culture (03/25/20 20:57) Medications Given in ED Current Medications Medications Dose Ordered Sig/Kurtis Route Start Time Stop Time Status Last Admin Dose Admin Albuterol/ Ipratropium 3 ml ONCE ONCE INH 03/25/20 21:15 03/25/20 21:16 DC 03/25/20 21:21 3 ML Prednisone 50 mg ONCE ONCE PO 03/25/20 21:15 03/25/20 21:16 DC 03/25/20 21:21 50 MG Vital Signs/I&O 03/25/20 21:00 Temp 36.8 Pulse 118 Resp 22 B/P (MAP) 158/98 (118) Pulse Ox 95 O2 Delivery Nasal Cannula O2 Flow Rate 2.00 Capillary Refill : Progress Note : Progress Note Pt feeling better, lungs CTA. VSS and stable sats on 2 liters/ nc discussed Rx's - prednisone 50 x 7d and RF of proair. Advised f/u if not improving, sooner if worse. Encouraged smoking cessation Diagnostic Imaging Comments FINDINGS: Lungs are clear. There are renuka in the right upper quadrant presumably from a cholecystectomy. There is an IVC filter in place. Patient has had bilateral hip pinning. Bowel gas pattern is normal. IMPRESSION: No acute abnormality in the abdomen. Dictated by: Dictated on workstation # [id number] Dict: 03/25/202129 Trans: 03/25/202131 [facility] [id number] Interpreted by: RADHA THORPE MD Electronically signed by: RADHA THORPE MD 03/25/202131 Departure Impression Primary Impression: COPD with exacerbation Additional Impression: Diarrhea Disposition: HOME, SELF-CARE Condition: Improved Departure-Patient Inst. Decision time for Depature: 21:59 Referrals: JAILENE DANIEL MD (PCP/Family) Primary Care Physician Patient Instructions: Diarrhea in Adolescents and Adults, Exacerbation of COPD Add. Discharge Instructions: Follow up with Dr Daniel in 2 to 3 days if not improving, sooner if worse All discharge instructions reviewed with patient and/or family. Voiced understanding. Scripts Albuterol Sulfate (PROAIR HFA) 1 Puff Puff 2 PUFF IH Q4H for Cough, #1 PUFF 1 Refill 1 PUFF = 90 MCG Prov: ALBA FELTON DO 03/25/20 Prednisone (Prednisone) 50 Mg Tab 50 MG PO DAILY, #7 TAB Prov: ALBA FELTON DO 03/25/20 ALBA FELTON DO Mar 25, 2020 21:10
[2020-03-25] MEDS ORDERED: predniSONE 20 MG TAB PO ONE (21:15)
[2020-03-25] MEDS ORDERED: RT-ALBUTEROL/IPRATROPIUM 3 ML (DUONEB) VIAL INH ONE (21:15)
--- NOTE | 2020-03-25 21:33 | Diagnostic Imaging Report ---
INDICATION: Abdominal bloating. EXAMINATION: PA chest, supine and upright abdominal images were obtained. FINDINGS: Lungs are clear. There are renuka in the right upper quadrant presumably from a cholecystectomy. There is an IVC filter in place. Patient has had bilateral hip pinning. Bowel gas pattern is normal. IMPRESSION: No acute abnormality in the abdomen. Dictated by: Dictated on workstation # [id number]
[2020-03-25 21:38] LABS: BASOPHILS # (AUTO) 0.1 10^3/uL (0.0-0.1); BASOPHILS % (AUTO) 1 % (0-10); EOSINOPHILS # (AUTO) 0.2 10^3/uL (0.0-0.3); EOSINOPHILS % (AUTO) 1 % (0-10); HEMATOCRIT 44 % (35-52); HEMOGLOBIN 14.5 G/DL (11.5-16.0); LYMPHOCYTES # (AUTO) 2.2 X 10^3 (1.0-4.0); LYMPHOCYTES % (AUTO) 19 % (12-44); MEAN CORPUSCULAR HEMOGLOBIN 33 PG (25-34); MEAN CORPUSCULAR HGB CONC 33 G/DL (32-36); MEAN CORPUSCULAR VOLUME 101 FL (80-99); MEAN PLATELET VOLUME 9.9 FL (7.4-10.4); MONOCYTES # (AUTO) 0.6 X 10^3 (0.0-1.0); MONOCYTES % (AUTO) 5 % (0-12); NEUTROPHILS # (AUTO) 8.7 X 10^3 (1.8-7.8); NEUTROPHILS % (AUTO) 74 % (42-75); PLATELET COUNT 183 10^3/uL (130-400); WHITE BLOOD COUNT 11.7 10^3/uL (4.3-11.0)
[2020-03-25 21:56] LABS: ALANINE AMINOTRANSFERASE 19 U/L (0-55); ALBUMIN 3.9 GM/DL (3.2-4.5); ALKALINE PHOSPHATASE 195 U/L (40-136); BILIRUBIN,TOTAL < 0.2 MG/DL (0.1-1.0); BUN/CREATININE RATIO 6; CALCIUM 8.5 MG/DL (8.5-10.1); CARBON DIOXIDE 21 MMOL/L (21-32); CHLORIDE 107 MMOL/L (98-107); CREATININE SERUM 0.82 MG/DL (0.60-1.30); GFR ESTIMATED > 60; GLUCOSE 138 MG/DL (70-105); POTASSIUM 4.3 MMOL/L (3.6-5.0); SODIUM 138 MMOL/L (135-145); TOTAL PROTEIN 6.7 GM/DL (6.4-8.2)
[2020-03-25 21:57] LABS: BACTERIA,URINE MODERATE /HPF; BILIRUBIN,URINE NEGATIVE (NEGATIVE); CLARITY,URINE CLEAR; COLOR,URINE YELLOW; GLUCOSE, URINE (UA) NEGATIVE (NEGATIVE); KETONES,URINE NEGATIVE (NEGATIVE); LEUKOCYTE ESTERASE ,URINE 1+ (NEGATIVE); NITRITE,URINE NEGATIVE (NEGATIVE); PH,URINE 6.5 (5-9); PROTEIN,URINE NEGATIVE (NEGATIVE)
[2020-03-25] MEDS ORDERED: PRD50T PO (22:01)
[2020-03-25] MEDS ORDERED: RT-ALBUINH IH (22:04)
[2020-03-25 22:05] VITALS: BP 152/99
== END 2020-03-25 22:05 | disposition home or self-care (01) ==
LOC: EDUNIT# 20:51 → ER FS 20:52
DX: J44.1 Chronic obstructive pulmonary disease with (acute) exacerbation (principal); R19.7 Diarrhea, unspecified; E11.9 Type 2 diabetes mellitus without complications; G89.29 Other chronic pain; M54.9 Dorsalgia, unspecified; F20.9 Schizophrenia, unspecified; F31.9 Bipolar disorder, unspecified; Z85.43 Personal history of malignant neoplasm of ovary; Z86.711 Personal history of pulmonary embolism; Z77.22 Contact with and (suspected) exposure to environmental tobacco smoke (acute) (chronic); Z88.1 Allergy status to other antibiotic agents; Z88.8 Allergy status to other drugs, medicaments and biological substances; Z79.01 Long term (current) use of anticoagulants; Z79.4 Long term (current) use of insulin; Z79.52 Long term (current) use of systemic steroids; Z79.891 Long term (current) use of opiate analgesic
CPT/HCPCS: 36415; 74022; 80053; 81000; 85025; 87077; 87088; 87186

== ENCOUNTER 2020-03-28 09:45 | Observation (INO) | payer MEDICAID ==
[~2020-03-28] VITALS: Ht 157.5 cm; Wt 137.4 kg
[2020-03-28] MEDS ORDERED: ACETAMINOPHEN 500 MG TAB (TYLENOL) PO ONE (10:15)
[2020-03-28] MEDS ORDERED: NS IV 1000 ML 1,000 ML IV SCH (10:15)
--- NOTE | 2020-03-28 10:38 | ED Respiratory ---
General Chief Complaint: Respiratory Problems Stated Complaint: LETHARGIC;WHEEZING Nursing Triage Note: Patient reports nausea, vomiting, diarrhea, shortness of breath, cough, lethargy, and fever for 2 days. History of Present Illness Date Seen by Provider: Mar 28, 2020 Time Seen by Provider: 10:31 Initial Comments 49-year-old female multiple chronic medical problems diabetic COPD on oxygen nebulizer treatments and a CPAP at home has had pulmonary emboli has IVC filter chronic pain issues obesity was seen here 3 days ago with diarrhea diagnosed with exacerbation of COPD and diarrhea was prescribed albuterol and prednisone she says the day after that she got worse, started have some nausea and vomiting headache has not had chest pain or syncope but did have a fall without injury she states 911 was called today for "wheezing and lethargic" she was found to have T 104 respiratory rate elevated O2 sats variable between 89, and 100% on O2 denies known exposure to illness says she had neg COVID test few weeks ago Allergies and Home Medications Allergies Coded Allergies: doxycycline (Unverified Allergy, Mild, nauseated, 08/01/09) spinach (Unverified Allergy, Mild, 08/01/09) alprazolam (Verified Allergy, Unknown, 07/18/19) diazepam (Verified Allergy, Unknown, 07/18/19) sumatriptan (Verified Allergy, Unknown, 07/18/19) Home Medications Albuterol Sulfate 1 Puff Puff, 2 PUFF IH Q4H 1 PUFF = 90 MCG Prescribed by: ALBA FELTON on 10/21/19 1526 Albuterol Sulfate 1 Puff Puff, 2 PUFF IH Q4H 1 PUFF = 90 MCG Prescribed by: ALBA FELTON on 03/25/204 Atorvastatin 20 Mg Tablet, 20 MG PO HS, (Reported) Azithromycin 250 Mg Tablet, 250 MG PO UD TAKE 2 TABLETS ON DAY ONE THEN TAKE 1 TABLET DAILY FOR FOUR MORE DAYS Prescribed by: FIFI WALKER on 07/18/19 0851 Butalb/Acetaminophen/Caffeine 1 Each Tablet, 1 EACH PO Q6H PRN for PAIN-MODERATE (5-7) Prescribed by: KAYLEE GIVENS on 01/30/20 0242 Cephalexin 500 Mg Capsule, 500 MG PO TID Prescribed by: EMILY DOMÍNGUEZ on 02/01/20 0237 Cephalexin Monohydrate 500 Mg Capsule, 1 EACH PO QID, (Reported) Ciprofloxacin 500 Mg Tablet, 1 TAB PO BID FOR INFECTION Prescribed by: BRAULIO NASH on 04/24/132100 Cyclobenzaprine HCl 10 Mg Tablet, 10 MG PO Q8H PRN for SPASMS Prescribed by: AMBREEN LEGER on 01/24/202145 Furosemide 40 Mg Tablet, 1 EACH PO BID, (Reported) PT TAKES 40MG PO BID Gabapentin 600 Mg Tab, 600 MG PO QID, (Reported) Haloperidol 10 Mg Tablet, 10 MG PO TID Prescribed by: FIFI WALKER on 07/18/19 0851 Hum Insulin Nph/Reg Insulin Hm 10 Ml Vial, 15 UNITS SQ TID, (Reported) Hydrocodone Bit/Acetaminophen 1 Ea Tablet, 1 EA PO q6 Prescribed by: EMILY DOMÍNGUEZ on 02/01/20 0237 Insulin Glargine,Hum.rec.anlog 300 Unit/3 Ml Insuln.pen, 10 UNITS SQ HS Prescribed by: NNEKA ROBINS on 12/14/12 1141 Ipratropium [place] 0.5 Mg/2.5 Ml Nebu, 0.5 MG IH Q6H PRN, (Reported) Ipratropium/Albuterol Sulfate 4 Gm Aer.w.adap, 1 PUFF IH QID, (Reported) Loratadine 10 Mg Tablet, 10 MG PO DAILY, (Reported) Lurasidone Hcl 80 Mg Tablet, 80 MG PO HS, (Reported) Lurasidone Hcl 40 Mg Tablet, 40 MG PO DAILY, (Reported) TAKES IN AM DAILY Meclizine Hcl 25 Mg Tablet, 1 EACH PO TID PRN, (Reported) Meloxicam 7.5 Mg Tablet, 7.5 MG PO DAILY, (Reported) Nitrofurantoin/Nitrofuran Mac 100 Mg Capsule, 100 MG PO BID Prescribed by: GUALBERTO DOUGHERTY on 04/14/131755 Nystatin 1 Each Powder.ea., 0 TOP BID PRN SPRINKLE ON AFFECTED AREA Prescribed by: GUALBERTO DOUGHERTY on 04/14/131754 Olanzapine 10 Mg Tab, 10 MG PO BID PRN for ANXIETY, (Reported) Ondansetron 4 Mg Tab.rapdis, 4 MG PO Q6H PRN for NAUSEA/VOMITING Prescribed by: TASH ALARCON on 01/22/202056 Oxcarbazepine 150 Mg Tablet, 300 MG PO DAILY, (Reported) Oxycodone HCl/Acetaminophen 1 Each Tablet, 1 EACH PO Q4H PRN for PAIN-SEVERE (8- 10) Prescribed by: TASH ALARCON on 05/31/19 0058 Oxycodone HCl/Acetaminophen 1 Each Tablet, 1 TAB PO Q6H PRN for PAIN-SEVERE (8- 10) Prescribed by: TASH ALARCON on 07/22/19 0157 Paroxetine Hcl 20 Mg Tablet, 20 MG PO HS, (Reported) Potassium Chloride 10 Meq Tab.prt.sr, 1 EACH PO BID WITH MEALS, (Reported) Prednisone 20 Mg Tab, 40 MG PO DAILY Prescribed by: TASH ALARCON on 07/22/19 015 Prednisone 50 Mg Tab, 50 MG PO DAILY Prescribed by: ALBA FELTON on 10/21/19 1526 Prednisone 50 Mg Tab, 50 MG PO DAILY Prescribed by: ALBA SAMSTJOSE on 03/25/202200 Sumatriptan 10 Gm Powder, 100 MG PO BID PRN, (Reported) Tiotropium [place] 1 Inh Aerp, 1 CAP IH DAILY, (Reported) 18 MCG CAPS/ONE INHALED DAILY Topiramate 100 Mg Tab, 200 MG PO HS, (Reported) PT TAKES 200MG TWICE DAILY AND 100MG AT NOON Topiramate 100 Mg Tab, 100 MG PO TID, (Reported) Tramadol Hcl 50 Mg Tablet, 100 MG PO Q6H PRN, (Reported) Trazodone HCl 100 Mg Tablet, 200 MG PO HS Prescribed by: FIFI WALKER on 07/18/19 0851 Trazodone Hcl 100 Mg Tab, 200 MG PO HS, (Reported) Warfarin Sodium 10 Mg Tablet, 10 MG PO DAILY@1800 Prescribed by: NNEKA ROBINS on 12/14/12 1141 Patient Home Medication List Home Medication List Reviewed: Yes Review of Systems Review of Systems Constitutional: fever, weakness EENTM: throat pain Respiratory: cough, short of breath, wheezing Cardiovascular: no symptoms reported Gastrointestinal: diarrhea, nausea, vomiting Genitourinary: dysuria Skin: no symptoms reported Psychiatric/Neurological: No Symptoms Reported Past Lbodvjd-Hotkil-Louaqz Hx Patient Social History Alcohol Use: Denies Use Recreational Drug Use: No Smoking Status: Current Everyday Smoker Type Used: Cigarettes 2nd Hand Smoke Exposure: Yes Recent Foreign Travel: No Contact w/Someone Who Travel: No Recent Infectious Disease Expo: No Recent Hopitalizations: No Physical Abuse: No Sexual Abuse: No Mistreated: No Fear: No Immunizations Up To Date Date of Pneumonia Vaccine: Dec 14, 2012 Date of Influenza Vaccine: Mar 04, 2013 Seasonal Allergies Seasonal Allergies: No Past Medical History Surgeries: Yes (HIP, suprapubic catheter, Dental) Appendectomy, Gallbladder, Hysterectomy, Orthopedic Respiratory: Yes Asthma, Pneumonia, Chronic Bronchitis, Pulmonary Embolism, COPD, Emphysema Cardiac: Yes (CHF) Neurological: Yes Neuropathy 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 Disorders: No 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 Sexually Transmitted Disease: No HIV/AIDS: No Genitourinary: Yes Kidney Stones, Neurogenic Bladder, UTI-Chronic Gastrointestinal: Yes Abdominal Hernia, Gastroesophageal Reflux, Chronic Constipation, Irritable Bowel Musculoskeletal: Yes Arthritis, Fibromyalgia, Back Injury, Chronic Back Pain, Fractures, Spasms Endocrine: Yes Diabetes, Insulin dep, Hypothyroidsim HEENT: No Hearing Impairment: Hard of Hearing Cancer: Yes Ovarian Psychosocial: Yes ADD/ADHD, Bipolar, Schizophrenia Integumentary: No Blood Disorders: No Family Medical History No Pertinent Family Hx Physical Exam Vital Signs - First Documented 03/28/20 03/28/20 09:56 11:22 Temp 39.4 Pulse 122 Resp 27 B/P (MAP) 120/72 (88) Pulse Ox 100 O2 Delivery Non Rebreather O2 Flow Rate 2.00 Capillary Refill : Less Than 3 Seconds Height: '" Weight: 275lbs. oz. 124.366774qt; 54.00 BMI Method:Stated General Appearance: mild distress Eyes: Bilateral Eye PERRL, Bilateral Eye EOMI HEENT: TMs normal (some injection), pharynx normal Neck: supple (no meningismus) Respiratory: no accessory muscle use, wheezing (expiratory) Cardiovascular: regular rate, rhythm (tachy) Gastrointestinal: normal bowel sounds, non tender, soft, other (can't confirm on exam (very obese) but pt states pain into R CVA area) Extremities: no pedal edema, no calf tenderness Focused Exam Lactate Level 03/28/20 10:05: Lactic Acid Level 1.15 Lactic Acid Level Laboratory Tests Test 03/28/20 10:05 Lactic Acid Level 1.15 MMOL/L (0.50-2.00) Progress/Results/Core Measures Suspected Sepsis Recent Fever Within 48 Hours: Yes Infection Criteria Present: Suspected New Infection New/Unexplained Altered Menta: No Sepsis Screen: Possible Sepsis Risk SIRS Temperature: Pulse: 122 Respiratory Rate: 27 Laboratory Tests 03/28/20 10:05: White Blood Count 16.8H Blood Pressure 120 /72 Mean: 88 03/28/20 10:05: Lactic Acid Level 1.15 Laboratory Tests 03/28/20 10:05: Creatinine 0.81, Platelet Count 120L, Total Bilirubin 0.6 Results/Orders Lab Results Laboratory Tests Test 03/28/20 10:05 03/28/20 10:10 03/28/20 10:23 Range/Units White Blood Count 16.8 H 4.3-11.0 10^3/uL Red Blood Count 4.08 L 4.35-5.85 10^6/uL Hemoglobin 13.3 11.5-16.0 G/DL Hematocrit 41 35-52 % Mean Corpuscular Volume 100 H 80-99 FL Mean Corpuscular Hemoglobin 33 25-34 PG Mean Corpuscular Hemoglobin Concent 33 32-36 G/DL Red Cell Distribution Width 14.2 10.0-14.5 % Platelet Count 120 L 130-400 10^3/uL Mean Platelet Volume 10.7 H 7.4-10.4 FL Immature Granulocyte % (Auto) 1 % Neutrophils (%) (Auto) 82 H 42-75 % Lymphocytes (%) (Auto) 5 L 12-44 % Monocytes (%) (Auto) 13 H 0-12 % Eosinophils (%) (Auto) 0 0-10 % Basophils (%) (Auto) 0 0-10 % Neutrophils # (Auto) 13.7 H 1.8-7.8 X 10^3 Lymphocytes # (Auto) 0.8 L 1.0-4.0 X 10^3 Monocytes # (Auto) 2.2 H 0.0-1.0 X 10^3 Eosinophils # (Auto) 0.0 0.0-0.3 10^3/uL Basophils # (Auto) 0.0 0.0-0.1 10^3/uL Immature Granulocyte # (Auto) 0.1 0.0-0.1 10^3/uL Neutrophils % (Manual) 63 % Lymphocytes % (Manual) 11 % Monocytes % (Manual) 6 % Eosinophils % (Manual) 0 % Basophils % (Manual) 1 % Band Neutrophils 19 % Blood Morphology Comment NORMAL Sodium Level 136 135-145 MMOL/L Potassium Level 3.7 3.6-5.0 MMOL/L Chloride Level 104 98-107 MMOL/L Carbon Dioxide Level 22 21-32 MMOL/L Anion Gap 10 5-14 MMOL/L Blood Urea Nitrogen 13 7-18 MG/DL Creatinine 0.81 0.60-1.30 MG/DL Estimat Glomerular Filtration Rate > 60 BUN/Creatinine Ratio 16 Glucose Level 245 H 70-105 MG/DL Lactic Acid Level 1.15 0.50-2.00 MMOL/L Calcium Level 8.3 L 8.5-10.1 MG/DL Corrected Calcium 8.7 8.5-10.1 MG/DL Total Bilirubin 0.6 0.1-1.0 MG/DL Aspartate Amino Transf (AST/SGOT) 10 5-34 U/L Alanine Aminotransferase (ALT/SGPT) 12 0-55 U/L Alkaline Phosphatase 152 H 40-136 U/L Total Protein 6.6 6.4-8.2 GM/DL Albumin 3.5 3.2-4.5 GM/DL Urine Color YELLOW Urine Clarity CLEAR Urine pH 6.0 5-9 Urine Specific [place] 1.025 H 1.016-1.022 Urine Protein 2+ H NEGATIVE Urine Glucose (UA) NEGATIVE NEGATIVE Urine Ketones NEGATIVE NEGATIVE Urine Nitrite NEGATIVE NEGATIVE Urine Bilirubin 1+ H NEGATIVE Urine Urobilinogen >=8.0 < = 1.0 MG/DL Urine Leukocyte Esterase TRACE H NEGATIVE Urine RBC (Auto) TRACE H NEGATIVE Urine RBC 0-2 /HPF Urine WBC 10-25 H /HPF Urine Squamous Epithelial Cells 5-10 /HPF Urine Crystals NONE /LPF Urine Bacteria LARGE H /HPF Urine Casts NONE /LPF Urine Mucus NEGATIVE /LPF Urine Culture Indicated YES Blood Gas Puncture Site LT RAD Blood Gas Patient Temperature 39.4 Arterial Blood pH 7.36 L 7.37-7.43 Arterial Blood Partial Pressure CO2 43 35-45 MMHG Arterial Blood Partial Pressure O2 48 L 79-93 MMHG Arterial Blood HCO3 24 23-27 MMOL/L Arterial Blood Total CO2 25.6 21.0-31.0 MMOL/L Arterial Blood Oxygen Saturation 82 L 94-100 % Arterial Blood Base Excess -1.3 -2.5-2.5 MMOL/L Eliu Test YES-POS Blood Gas Ventilator Setting NO Blood Gas Inspired Oxygen 8L Micro Results Microbiology 03/28/20 Influenza Types A,B Antigen (DOMENICA) - Final, Complete My Orders Orders - FIFI WALKER MD Cbc With Automated Diff (03/28/20 10:12) Comprehensive Metabolic Panel (03/28/20 10:12) Lactic Acid Analyzer (03/28/20 10:12) Urinalysis (03/28/20 10:12) Straight Cath For Spec.-Adult (03/28/20 10:12) Blood Culture (03/28/20 10:12) Chest 1 View Ap/Pa Only (03/28/20 10:12) Influenza A And B Antigens (03/28/20 10:12) Coronavirus Sars-Cov-2 So 2018 (03/28/20 10:12) Arterial Blood Gas (03/28/20 10:12) Ekg Tracing (03/28/20 10:12) Acetaminophen Tablet (Tylenol Tablet) (03/28/20 10:15) Ns Iv 1000 Ml (Sodium Chloride 0.9%) (03/28/20 10:15) Manual Differential (03/28/20 10:05) Urine Culture (03/28/20 10:23) Ceftriaxone For Iv Use (Rocephin For I (03/28/20 11:00) Medications Given in ED Current Medications Medications Dose Ordered Sig/Kurtis Route Start Time Stop Time Status Last Admin Dose Admin Acetaminophen 1,000 mg ONCE ONCE PO 03/28/20 10:15 03/28/20 10:31 DC 03/28/20 10:40 1,000 MG Ceftriaxone Sodium 1000 mg/ Sterile Water 10 ml @ 200 mls/hr ONCE ONCE IV 03/28/20 11:00 03/28/20 11:02 DC 03/28/20 11:19 200 MLS/HR Vital Signs/I&O 03/28/20 03/28/20 09:56 11:22 Temp 39.4 38.4 Pulse 122 108 Resp 27 B/P (MAP) 120/72 (88) 121/76 Pulse Ox 100 94 O2 Delivery Non Rebreather Nasal Cannula O2 Flow Rate 2.00 Capillary Refill : Less Than 3 Seconds Blood Pressure Mean: 88 Progress Note : Progress Note Hemoglobin 13.3 white blood count 16,800 lactic acid normal CMP essentially normal CO2 22 glucose 245 urine showed large bacteria and 10-25 white cells Chest x-ray - flattened diaphragms lungs clear no CHF no acute findings influenza - A and B neg assess - UTI pyelo fever and leukocytosis COVID pending but CXR clear O2 sats good Patient's condition warrants hospitalization calls/text to Dr. Daniel eventually reached Dr. Daniel is out of town referred to target protection specialist at [place], they are on divert not admitting call to hospitalist [facility] covering hospitalist Dr. Head has agreed to admit ECG Comment Sinus tachycardia rate [address] changes Departure Communication (Admissions) Time/Spoke to Admitting Phy: 12:40 Impression Primary Impression: Pyelonephritis Disposition: ADMITTED INPATIENT Condition: Stable Admissions Decision to Admit Reason: Admit from ER (General) Decision to Admit/Date: Mar 28, 2020 Time/Decision to Admit Time: 12:42 Departure-Patient Inst. Referrals: JAILENE DANIEL MD (PCP/Family) Primary Care Physician FIFI WALKER MD Mar 28, 2020 10:38
[2020-03-28 10:41] LABS: ABG PCO2 43 MMHG (35-45); ABG PH 7.36 (7.37-7.43); ABG PO2 48 MMHG (79-93); ABG TCO2 25.6 MMOL/L (21.0-31.0)
[2020-03-28 10:42] LABS: ABG BASE EXCESS -1.3 MMOL/L (-2.5-2.5); ABG OXYGEN SATURATION 82 % (94-100); ALLENS TEST YES-POS; VENTILATOR NO
[2020-03-28 10:44] LABS: INSPIRED O2 8L; PATIENT TEMP 39.4
[2020-03-28 10:44] LABS: BASOPHILS % (AUTO) 0 % (0-10); EOSINOPHILS % (AUTO) 0 % (0-10); HEMATOCRIT 41 % (35-52); HEMOGLOBIN 13.3 G/DL (11.5-16.0); LYMPHOCYTES # (AUTO) 0.8 X 10^3 (1.0-4.0); LYMPHOCYTES % (AUTO) 5 % (12-44); MEAN CORPUSCULAR HEMOGLOBIN 33 PG (25-34); MEAN CORPUSCULAR HGB CONC 33 G/DL (32-36); MEAN CORPUSCULAR VOLUME 100 FL (80-99); MEAN PLATELET VOLUME 10.7 FL (7.4-10.4); MONOCYTES # (AUTO) 2.2 X 10^3 (0.0-1.0); MONOCYTES % (AUTO) 13 % (0-12); NEUTROPHILS # (AUTO) 13.7 X 10^3 (1.8-7.8); NEUTROPHILS % (AUTO) 82 % (42-75); PLATELET COUNT 120 10^3/uL (130-400); WHITE BLOOD COUNT 16.8 10^3/uL (4.3-11.0)
[2020-03-28 10:52] LABS: POTASSIUM 3.7 MMOL/L (3.6-5.0); SODIUM 136 MMOL/L (135-145)
--- NOTE | 2020-03-28 10:52 | Diagnostic Imaging Report ---
INDICATION: Shortness of breath and wheezing. Fever. COMPARISON: Comparison is made with the prior study from March 25, 2019. FINDINGS: There is no focal pulmonary infiltrate or consolidation evident. There is no effusion. There is no pneumothorax. Heart size and mediastinal contours appear appropriate. The diaphragms do appear to be slightly flattened on this single frontal view which could relate to some air trapping. IMPRESSION: Slight flattening of the diaphragms which could relate to air trapping. Lungs appear clear. Heart size is normal. Pulmonary vascularity appears appropriate. No pleural fluid evident. Dictated by: Dictated on workstation # [id number]
[2020-03-28 10:53] LABS: ALANINE AMINOTRANSFERASE 12 U/L (0-55); ALBUMIN 3.5 GM/DL (3.2-4.5); ALKALINE PHOSPHATASE 152 U/L (40-136); BILIRUBIN,TOTAL 0.6 MG/DL (0.1-1.0); BUN/CREATININE RATIO 16; CALCIUM 8.3 MG/DL (8.5-10.1); CARBON DIOXIDE 22 MMOL/L (21-32); CHLORIDE 104 MMOL/L (98-107); CREATININE SERUM 0.81 MG/DL (0.60-1.30); GFR ESTIMATED > 60; GLUCOSE 245 MG/DL (70-105); TOTAL PROTEIN 6.6 GM/DL (6.4-8.2)
[2020-03-28 10:53] LABS: CLARITY,URINE CLEAR; COLOR,URINE YELLOW; GLUCOSE, URINE (UA) NEGATIVE (NEGATIVE); KETONES,URINE NEGATIVE (NEGATIVE); PROTEIN,URINE 2+ (NEGATIVE)
[2020-03-28 10:54] LABS: BACTERIA,URINE LARGE /HPF; BILIRUBIN,URINE 1+ (NEGATIVE); LEUKOCYTE ESTERASE ,URINE TRACE (NEGATIVE); NITRITE,URINE NEGATIVE (NEGATIVE); RBC,URINE 0-2 /HPF
[2020-03-28] MEDS ORDERED: cefTRIAXone FOR IV USE 1,000 MG in WATER (STERILE) FOR INJECTION 10 ML IV ONE (11:00)
[2020-03-28 11:27] LABS: BAND NEUTROPHILS 19 %; BASOPHILS % (MANUAL) 1 %; EOSINOPHILS % (MANUAL) 0 %; LYMPHOCYTES % (MANUAL) 11 %; MONOCYTES % (MANUAL) 6 %; NEUTROPHILS % (MANUAL) 63 %
[2020-03-28 11:28] LABS: RBC MORPH NORMAL
--- NOTE | 2020-03-28 15:10 | NUR ---
JERALD VELAZQUEZ admitted to room 432-1, with an admitting diagnosis of UTI, LEUKOCYTOSIS, COVID PUI, on 03/28/20 from [facility] via EMS, accompanied by EMS STAFF. JERALD VELAZQUEZ introduced to surroundings, call light, bed controls, phone, TV, temperature control, lights, meal times, smoking policy, visitor policy, side rail policy, bathrooms and showers. Patient Rights given to patient in the handbook. JERALD VELAZQUEZ verbalizes understanding that [facility] is not responsible for the loss or damage to any personal effects or valuables that are kept in the patients posession during their hospitalization. JERALD VELAZQUEZ verbalizes understanding of Interdisciplinary Patient Education. Patient and/or family were informed about the Rapid Response Team and its purpose.
[2020-03-28] MEDS ORDERED: CATHETER FLUSH 10 ML SYR IV PRN (15:45)
[2020-03-28 16:15] VITALS: BP 147/71
[2020-03-28 16:31] VITALS: BP 147/71
[2020-03-28] MEDS: NS IV 1000 ML 1,000 ML IV SCH (17:11)
[2020-03-28 19:11] VITALS: BP 116/74
[2020-03-28] MEDS ORDERED: ACETAMINOPHEN 325 MG TABLET ONE (19:50)
[2020-03-28 20:00] VITALS: BP 116/74
[2020-03-28] MEDS: ACETAMINOPHEN 325 MG TABLET PO PRN (20:04)
[2020-03-28] MEDS ORDERED: traZODone 100 MG (DESYREL) TAB PO SCH (21:00)
[2020-03-28] MEDS ORDERED: ENOXAPARIN 40 MG/0.4 ML (LOVENOX) SYR SC SCH (21:00)
[2020-03-28 21:24] VITALS: BP 116/74
[2020-03-28] MEDS ORDERED: traZODone 50 MG (DESYREL) TAB ONE (22:24)
[2020-03-28] MEDS: ENOXAPARIN 60 MG/0.6 ML (LOVENOX) SYR SC SCH (22:29)
[2020-03-28] MEDS: ONDANSETRON 4 MG/2 ML (SDV) Z0FRAN IVP PRN (23:08)
[2020-03-28 23:09] VITALS: BP 129/63
[2020-03-29] MEDS ORDERED: PROMETHAZINE INJ 25 MG/ML (PHENERGAN) AMP IVP PRN (00:15)
[2020-03-29] MEDS ORDERED: PROMETHAZINE INJ 25 MG/ML (PHENERGAN) AMP ONE (00:16)
[2020-03-29] MEDS: NS IV 1000 ML 1,000 ML IV SCH ×2 (01:59→02:28)
[2020-03-29] MEDS: ACETAMINOPHEN 325 MG TABLET PO PRN (02:23)
[2020-03-29] MEDS: RT-ALBUTEROL INHALER HFA (VENTOLIN HFA) 18 GM IH SCH ×3 (03:04→11:50)
[2020-03-29 04:17] VITALS: BP 127/60
[2020-03-29] MEDS: ONDANSETRON 4 MG/2 ML (SDV) Z0FRAN IVP PRN (04:21)
[2020-03-29 07:44] VITALS: BP 128/81
[2020-03-29] MEDS ORDERED: ENOXAPARIN 40 MG/0.4 ML (LOVENOX) SYR SC SCH (09:00)
[2020-03-29] MEDS ORDERED: cefTRIAXone FOR IV USE 1,000 MG in WATER (STERILE) FOR INJECTION 10 ML IV SCH (09:00)
[2020-03-29] MEDS ORDERED: KCL 20 MEQ TAB (K-DUR) PO ONE (10:35)
[2020-03-29] MEDS: ENOXAPARIN 60 MG/0.6 ML (LOVENOX) SYR SC SCH (10:39)
--- NOTE | 2020-03-29 11:22 | Short Stay Summary ---
HPI History of Present Illness: 49 yo F that presented to ER Fever, shortness of breath and Right flank pain. Patient states that she started feeling bad last and had been to the ER once prior and told that she was ok to go home. She recently tested negative for COVID last week. Denies any close contacts and really has not been out of her h ouse and around people. She states that she took her temperature yesterday and it was 103 and that is when she called the EMS to take her to the ER. She has known DM and COPD and states that she has not missed any of her medications prior to admit. This AM she is stating that she is feeling much better. She tolerated breakfast and is asking to go home. States that she still has pain in her back but that it has improved. Her temperature curve has trended down over the last 12 hrs. She is on RA and breathing comfortably. Source: patient Exam Limitations: no limitations Date seen by provider: Mar 29, 2020 Time Seen by Provider: 10:45 Attending Physician Leonor Perez MD PCP Jailene Bautista MD Consult Date of Admission Mar 28, 2020 at 12:35 Home Medications Home Medications Reviewed patient Home Medication Reconciliation performed by pharmacy medication reconciliations photo equipment technician and/or nursing. Patients Allergies have been reviewed. Allergies Coded Allergies: doxycycline (Unverified Allergy, Mild, nauseated, 08/01/09) spinach (Unverified Allergy, Mild, 08/01/09) alprazolam (Verified Allergy, Unknown, 07/18/19) diazepam (Verified Allergy, Unknown, 07/18/19) sumatriptan (Verified Allergy, Unknown, 07/18/19) [id number]-[id number]-Otpwqo Hx Patient Social History Living Status: Lives at home with Alcohol Use: Denies Use Recreational Drug Use: No Smoking Status: Current Everyday Smoker Type Used: Cigarettes 2nd Hand Smoke Exposure: Yes Recent Foreign Travel: No Contact w/other who traveled: No Recent Hopitalizations: No Recent Infectious Disease Expo: No Immunizations Up To Date Date of Pneumonia Vaccine: Dec 14, 2012 Date of Influenza Vaccine: Mar 04, 2013 Past Medical History COPD IDDM Morbid Obesity HLD Family Medical History Significant Family History: No Pertinent Family Hx Review of Systems (CHC) Constitutional: No chills; fever, weakness EENTM: nose congestion, other (taste and smell intact) Respiratory: dyspnea on exertion, short of breath Cardiovascular: no symptoms reported; No chest pain, No edema, No palpitations Gastrointestinal: no symptoms reported; No abdominal pain, No constipation, No diarrhea, No nausea, No vomiting Genitourinary: No dysuria; frequency; No hematuria : No Musculoskeletal: back pain, joint pain Skin: no symptoms reported; No lesions, No rash Psychiatric/Neurological: No Symptoms Reported Reviewed Test Results Reviewed Test Results Lab Laboratory Tests Test 03/28/20 10:05 03/28/20 10:10 03/28/20 10:23 03/28/20 16:27 Range/Units White Blood Count 16.8 H 4.3-11.0 10^3/uL Red Blood Count 4.08 L 4.35-5.85 10^6/uL Hemoglobin 13.3 11.5-16.0 G/DL Hematocrit 41 35-52 % Mean Corpuscular Volume 100 H 80-99 FL Mean Corpuscular Hemoglobin 33 25-34 PG Mean Corpuscular Hemoglobin Concent 33 32-36 G/DL Red Cell Distribution Width 14.2 10.0-14.5 % Platelet Count 120 L 130-400 10^3/uL Mean Platelet Volume 10.7 H 7.4-10.4 FL Immature Granulocyte % (Auto) 1 % Neutrophils (%) (Auto) 82 H 42-75 % Lymphocytes (%) (Auto) 5 L 12-44 % Monocytes (%) (Auto) 13 H 0-12 % Eosinophils (%) (Auto) 0 0-10 % Basophils (%) (Auto) 0 0-10 % Neutrophils # (Auto) 13.7 H 1.8-7.8 X 10^3 Lymphocytes # (Auto) 0.8 L 1.0-4.0 X 10^3 Monocytes # (Auto) 2.2 H 0.0-1.0 X 10^3 Eosinophils # (Auto) 0.0 0.0-0.3 10^3/uL Basophils # (Auto) 0.0 0.0-0.1 10^3/uL Immature Granulocyte # (Auto) 0.1 0.0-0.1 10^3/uL Neutrophils % (Manual) 63 % Lymphocytes % (Manual) 11 % Monocytes % (Manual) 6 % Eosinophils % (Manual) 0 % Basophils % (Manual) 1 % Band Neutrophils 19 % Blood Morphology Comment NORMAL Sodium Level 136 135-145 MMOL/L Potassium Level 3.7 3.6-5.0 MMOL/L Chloride Level 104 98-107 MMOL/L Carbon Dioxide Level 22 21-32 MMOL/L Anion Gap 10 5-14 MMOL/L Blood Urea Nitrogen 13 7-18 MG/DL Creatinine 0.81 0.60-1.30 MG/DL Estimat Glomerular Filtration Rate > 60 BUN/Creatinine Ratio 16 Glucose Level 245 H 70-105 MG/DL Lactic Acid Level 1.15 0.50-2.00 MMOL/L Calcium Level 8.3 L 8.5-10.1 MG/DL Corrected Calcium 8.7 8.5-10.1 MG/DL Total Bilirubin 0.6 0.1-1.0 MG/DL Aspartate Amino Transf (AST/SGOT) 10 5-34 U/L Alanine Aminotransferase (ALT/SGPT) 12 0-55 U/L Alkaline Phosphatase 152 H 40-136 U/L Total Protein 6.6 6.4-8.2 GM/DL Albumin 3.5 3.2-4.5 GM/DL Urine Color YELLOW Urine Clarity CLEAR Urine pH 6.0 5-9 Urine Specific [place] 1.025 H 1.016-1.022 Urine Protein 2+ H NEGATIVE Urine Glucose (UA) NEGATIVE NEGATIVE Urine Ketones NEGATIVE NEGATIVE Urine Nitrite NEGATIVE NEGATIVE Urine Bilirubin 1+ H NEGATIVE Urine Urobilinogen >=8.0 < = 1.0 MG/DL Urine Leukocyte Esterase TRACE H NEGATIVE Urine RBC (Auto) TRACE H NEGATIVE Urine RBC 0-2 /HPF Urine WBC 10-25 H /HPF Urine Squamous Epithelial Cells 5-10 /HPF Urine Crystals NONE /LPF Urine Bacteria LARGE H /HPF Urine Casts NONE /LPF Urine Mucus NEGATIVE /LPF Urine Culture Indicated YES Blood Gas Puncture Site LT RAD Blood Gas Patient Temperature 39.4 Arterial Blood pH 7.36 L 7.37-7.43 Arterial Blood Partial Pressure CO2 43 35-45 MMHG Arterial Blood Partial Pressure O2 48 L 79-93 MMHG Arterial Blood HCO3 24 23-27 MMOL/L Arterial Blood Total CO2 25.6 21.0-31.0 MMOL/L Arterial Blood Oxygen Saturation 82 L 94-100 % Arterial Blood Base Excess -1.3 -2.5-2.5 MMOL/L Eliu Test YES-POS Blood Gas Ventilator Setting NO Blood Gas Inspired Oxygen 8L Glucometer 223 H 70-110 MG/DL Physical Exam-(CHC) Physical Exam Vital Signs VS - Last 72 Hours, by Label 03/28/20 03/28/20 03/28/20 03/28/20 09:56 11:22 14:10 14:19 Temp 39.4 38.4 36.6 36.6 Pulse 122 108 109 100 Resp 27 24 B/P (MAP) 120/72 (88) 121/76 119/83 148/82 Pulse Ox 100 94 95 94 O2 Delivery Non Rebreather Nasal Cannula Room Air Nasal Cannula O2 Flow Rate 2.00 2.00 03/28/20 03/28/20 03/28/20 03/28/20 16:15 16:21 16:31 19:11 Temp 36.8 36.8 36.3 Pulse 75 75 110 Resp 22 22 23 B/P (MAP) 147/71 147/71 (96) 116/74 (88) Pulse Ox 90 94 90 97 O2 Delivery Nasal Cannula Nasal Cannula Nasal Cannula Nasal Cannula O2 Flow Rate 3.00 2.00 3.00 3.00 03/28/20 03/28/20 03/28/20 03/28/20 20:00 20:00 21:24 23:09 Temp 36.3 36.3 36.3 Pulse 110 110 111 Resp 23 23 23 B/P (MAP) 116/74 (88) 116/74 (88) 129/63 (85) Pulse Ox 97 97 96 O2 Delivery Nasal Cannula Nasal Cannula Nasal Cannula Nasal Cannula O2 Flow Rate 3.00 3.00 03/29/20 03/29/20 03/29/20 03/29/20 02:23 03:04 04:17 04:20 Temp 37.8 37.2 37.2 Pulse 118 Resp 24 B/P (MAP) 127/60 (82) Pulse Ox 97 94 O2 Delivery Nasal Cannula Nasal Cannula O2 Flow Rate 2.00 3.00 03/29/20 03/29/20 07:14 07:44 Temp 37.7 Pulse 115 Resp 22 B/P (MAP) 128/81 (97) Pulse Ox 96 94 O2 Delivery Nasal Cannula Room Air O2 Flow Rate 2.00 Capillary Refill : Less Than 3 Seconds General Appearance: WD/WN, no apparent distress, obese HEENT: PERRL/EOMI Neck: non-tender, full range of motion, supple Respiratory: chest non-tender, normal breath sounds, no respiratory distress, no accessory muscle use Cardiovascular: normal peripheral pulses, regular rate, rhythm, no edema, no murmur Gastrointestinal: normal bowel sounds, non tender, soft, no organomegaly Back: CVA tenderness (R) Extremities: normal range of motion, non-tender, no pedal edema, no calf tenderness, normal capillary refill 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, no motor/sensory deficits, alert, normal mood/affect, oriented x 3 Skin: normal color, warm/dry Lymphatic: no adenopathy Short Stay Diagnosis Discharge Diagnosis-Short Stay Admission Diagnosis Pyelonephritis COPD IDDM h/o DVT and PE Morbid Obesity Final Discharge Diagnosis See problem list Conclusion Plan See problem list Clinical Quality Measures DVT/VTE Risk/Contraindication: Risk Factor Score Per Nursin RFS Level Per Nursing on Admit: 4+=Very High Copy Copies To 1: JAILENE BAUTISTA MD Assessment/Plan Assessment/Plan Admission Status: Observation (1) Pyelonephritis Status: Acute Assessment & Plan: - Temperature curve improving with Rocephin, will transition to PO antibiotics (2) COPD (chronic obstructive pulmonary disease) Status: Chronic Assessment & Plan: - Continue home meds, patient on RA currently Qualifiers: Qualified Codes: J44.9 - Chronic obstructive pulmonary disease, unspecified (3) Insulin dependent diabetes mellitus Status: Chronic Assessment & Plan: - Continue home meds (4) Morbid obesity with BMI of 50.0-59.9, adult Status: Chronic (5) History of DVT (deep vein thrombosis) Status: Chronic Assessment & Plan: - Continue OAC LEONOR PEREZ MD Mar 29, 2020 11:22
[2020-03-29] MEDS ORDERED: HALO10TA PO (12:00)
[2020-03-29] MEDS ORDERED: RIVA20TA PO (12:00)
[2020-03-29] MEDS ORDERED: FURO40TA4 PO (12:00)
[2020-03-29] MEDS ORDERED: TRAZ-227 PO (12:00)
[2020-03-29] MEDS ORDERED: VENL150C98 PO (12:00)
[2020-03-29] MEDS ORDERED: QUET100T33 PO (12:00)
[2020-03-29] MEDS ORDERED: MONT10TA26 PO (12:00)
[2020-03-29] MEDS ORDERED: MELO15TA39 PO (12:00)
[2020-03-29] MEDS ORDERED: LURA120T PO (12:00)
[2020-03-29] MEDS ORDERED: TOPI100T11 PO (12:00)
[2020-03-29] MEDS ORDERED: GLIM2TAB4 PO (12:00)
[2020-03-29] MEDS ORDERED: RT-ALBUINH INH (12:00)
[2020-03-29] MEDS ORDERED: PHEN200C3 PO (12:00)
[2020-03-29] MEDS ORDERED: LURA40TA3 PO (12:00)
[2020-03-29] MEDS ORDERED: GBPN600T PO (12:00)
[2020-03-29] MEDS ORDERED: PRD50T PO (12:01)
--- NOTE | 2020-03-29 12:02 | NUR ---
SPOKE WITH THE PT (I CALLED HER ROOM PHONE) AND WENT THRU THE EXT MED HISTORY TO COMPLETE THE MED REC PT WAS NOT ABLE TO TELL ME THE NAMES OF HER MEDICATIONS, THEREFORE I LISTED THEM ACCORDING TO THE EXT MED HISTORY AND THEN THE PT WAS ABLE TO TELL ME HOW SHE TAKES EACH. FUROSEMIDE- DIRECTIONS SHOW 1 TAB AM AND 1 & TAB AT NOON, HOWEVER THE PT IS TAKING 1 TAB BID PT DENIED TAKING ANY OTC MEDICATIONS
--- NOTE | 2020-03-29 13:04 | Discharge Summary ---
Discharge [facility] Reconcile Patient Problems Problems Reviewed?: Yes Discharge Medications New, Converted or Re-Newed RX: Transmitted to Pharmacy Continued Medications: Albuterol Sulfate (Ventolin Hfa) 1 Puff Puff 2 PUFF INH Q4H PRN for COUGH, EA Furosemide (Furosemide) 40 Mg Tablet 40 MG PO BID, TAB Gabapentin (Gabapentin) 600 Mg Tablet 1200 MG PO TID, TAB TAKES 2 (600MG) TABS Glimepiride (Glimepiride) 2 Mg Tablet 2 MG PO BID, TAB Haloperidol (Haloperidol) 10 Mg Tablet 10 MG PO TID, TAB Lurasidone HCl (Latuda) 120 Mg Tablet 120 MG PO 1800, TAB TAKES 120MG + 40MG TO EQUAL 160MG DAILY Lurasidone HCl (Latuda) 40 Mg Tablet 40 MG PO 1800, TAB TAKES 120MG + 40MG TO EQUAL 160MG DAILY Montelukast Sodium (Montelukast Sodium) 10 Mg Tablet 10 MG PO DAILY, TAB Phenytoin Sodium Extended (Phenytoin Sodium Extended) 200 Mg Capsule 200 MG PO BID, CAP Quetiapine Fumarate (Quetiapine Fumarate) 100 Mg Tablet 300 MG PO DAILY, TAB TAKES 3 (100MG) TABS Rivaroxaban (Xarelto) 20 Mg Tablet 20 MG PO DAILY, TAB Topiramate (Topiramate) 100 Mg Tablet 200 MG PO BID, TAB TAKES 2 (100MG) TABS Trazodone HCl (Trazodone HCl) 100 Mg Tablet 200 MG PO HS, TAB TAKES 2 (100MG) TABS Venlafaxine HCl (Venlafaxine HCl ER) 150 Mg Cap.er.24h 300 MG PO DAILY, CAP TAKES 2 (150MG) CAPS Discontinued Medications: Meloxicam (Meloxicam) 15 Mg Tablet 15 MG PO DAILY, TAB Prednisone (Prednisone) 50 Mg Tab 50 MG PO DAILY, TAB FILLED 03-26-2020 #7 Patient Instructions Goal/Follow Up Appt: Keep your appt with Dr Bautista next week. Activity & Diet Discharge Diet: ADA Diet Activity as Tolerated: Yes LEONOR CAMARGO MD Mar 29, 2020 11:29
[2020-03-29 13:30] VITALS: BP 128/81
[2020-03-29] MEDS ORDERED: CEFD300C3 PO (13:40)
[2020-03-29] MEDS ORDERED: traZODone 100 MG (DESYREL) TAB PO SCH ×2 (21:00)
== END 2020-03-29 13:45 | disposition home or self-care (01) ==
LOC: EDUNIT# 09:45 → ER FS 09:46 → 4TH 12:35 → ER FS 14:19
PROVIDERS: ADMIT Internal Medicine; ATTEND Family Medicine
DX: N12 Tubulo-interstitial nephritis, not specified as acute or chronic (principal); E11.9 Type 2 diabetes mellitus without complications; F17.210 Nicotine dependence, cigarettes, uncomplicated; E78.5 Hyperlipidemia, unspecified; J43.9 Emphysema, unspecified; I50.9 Heart failure, unspecified; K21.9 Gastro-esophageal reflux disease without esophagitis; M19.90 Unspecified osteoarthritis, unspecified site; E03.9 Hypothyroidism, unspecified; G89.29 Other chronic pain; N31.9 Neuromuscular dysfunction of bladder, unspecified; F20.9 Schizophrenia, unspecified; F90.9 Attention-deficit hyperactivity disorder, unspecified type; E66.01 Morbid (severe) obesity due to excess calories; Z68.43 Body mass index [BMI] 50.0-59.9, adult; Z79.4 Long term (current) use of insulin; Z79.51 Long term (current) use of inhaled steroids; Z79.899 Other long term (current) drug therapy; Z91.018 Allergy to other foods; Z88.8 Allergy status to other drugs, medicaments and biological substances; Z85.43 Personal history of malignant neoplasm of ovary; Z90.710 Acquired absence of both cervix and uterus
CPT/HCPCS: 36415; 51701; 71045; 80053; 81000; 82805; 82962; 83605; 85007; 85027; 87040; 87077; 87088; 87635; 87804; 93005; 94640; 94760; G0378

== ENCOUNTER 2020-05-28 16:57 | Emergency (ER) | payer MEDICAID ==
[~2020-05-28] VITALS: Ht 157.5 cm; Wt 108.8 kg
[~2020-05-28 16:57] MED LIST changes: +CEFD300C3 PO; +GLIM2TAB4 PO; +LURA120T PO; +LURA40TA3 PO; +MELO15TA39 PO; +MONT10TA97 PO; +PHEN200C3 PO; +QUET100T33 PO; +RIVA20TA PO; +RT-ALBUINH INH; +TOPI100T11 PO; +VENL150C98 PO
--- NOTE | 2020-05-28 17:09 | ED Fall/Injury ---
General Chief Complaint: Trauma-Non Activation Stated Complaint: FALL Source: patient, EMS Exam Limitations: no limitations History of Present Illness Date Seen by Provider: May 28, 2020 Time Seen by Provider: 17:05 Initial Comments 50-year-old female brought in due to right shoulder pain and left ankle pain from a fall. Patient reports that she has frequent falls due to neuropathy and fibromyalgia. She has been following with Dr. Bautista to have this further eval uated. She has no acute changes besides the pain from when she fell. Patient reports no other injuries from her fall. It is no noticeable deformities. She has painful range of motion but is not limited. Allergies and Home Medications Allergies Coded Allergies: doxycycline (Unverified Allergy, Mild, nauseated, 08/01/09) spinach (Unverified Allergy, Mild, 08/01/09) alprazolam (Verified Allergy, Unknown, 07/18/19) diazepam (Verified Allergy, Unknown, 07/18/19) sumatriptan (Verified Allergy, Unknown, 07/18/19) Home Medications Albuterol Sulfate 1 Puff Puff, 2 PUFF INH Q4H PRN for COUGH, (Reported) Cefdinir 300 Mg Capsule, 300 MG PO BID Prescribed by: LEONOR CAMARGO on 03/29/20 1340 Furosemide 40 Mg Tablet, 40 MG PO BID, (Reported) Gabapentin 600 Mg Tablet, 1,200 MG PO TID, (Reported) TAKES 2 (600MG) TABS Glimepiride 2 Mg Tablet, 2 MG PO BID, (Reported) Haloperidol 10 Mg Tablet, 10 MG PO TID, (Reported) Lurasidone HCl 120 Mg Tablet, 120 MG PO 1800, (Reported) TAKES 120MG + 40MG TO EQUAL 160MG DAILY Lurasidone HCl 40 Mg Tablet, 40 MG PO 1800, (Reported) TAKES 120MG + 40MG TO EQUAL 160MG DAILY Montelukast Sodium 10 Mg Tablet, 10 MG PO DAILY, (Reported) Phenytoin Sodium Extended 200 Mg Capsule, 200 MG PO BID, (Reported) Quetiapine Fumarate 100 Mg Tablet, 300 MG PO DAILY, (Reported) TAKES 3 (100MG) TABS Rivaroxaban 20 Mg Tablet, 20 MG PO DAILY, (Reported) Topiramate 100 Mg Tablet, 200 MG PO BID, (Reported) TAKES 2 (100MG) TABS Trazodone HCl 100 Mg Tablet, 200 MG PO HS, (Reported) TAKES 2 (100MG) TABS Venlafaxine HCl 150 Mg Cap.er.24h, 300 MG PO DAILY, (Reported) TAKES 2 (150MG) CAPS Patient Home Medication List Home Medication List Reviewed: Yes Review of Systems Review of Systems Constitutional: No chills, No fever Eyes: No Symptoms Reported Ears, Nose, Mouth, Throat: no symptoms reported Respiratory: no symptoms reported Cardiovascular: no symptoms reported Gastrointestinal: no symptoms reported Genitourinary: no symptoms reported Musculoskeletal: see HPI Skin: no symptoms reported Psychiatric/Neurological: No Symptoms Reported Past Thlifth-Dmbdul-Hwcqjy Hx Past Med/Social Hx: Reviewed Nursing Past Med/Soc Hx Patient Social History Type Used: Cigarettes 2nd Hand Smoke Exposure: Yes Recent Foreign Travel: No Contact w/Someone Who Travel: No Recent Hopitalizations: No Immunizations Up To Date Date of Pneumonia Vaccine: Dec 14, 2012 Date of Influenza Vaccine: Mar 04, 2013 Seasonal Allergies Seasonal Allergies: No Past Medical History Surgeries: Yes (HIP, suprapubic catheter, Dental) Appendectomy, Gallbladder, Hysterectomy, Orthopedic Respiratory: Yes Asthma, Pneumonia, Chronic Bronchitis, Pulmonary Embolism, COPD, Emphysema Cardiac: Yes (CHF) Neurological: Yes Neuropathy 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 Disorders: No 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 Sexually Transmitted Disease: No HIV/AIDS: No Genitourinary: Yes Kidney Stones, Neurogenic Bladder, UTI-Chronic Gastrointestinal: Yes Abdominal Hernia, Gastroesophageal Reflux, Chronic Constipation, Irritable Bowel Musculoskeletal: Yes Arthritis, Fibromyalgia, Back Injury, Chronic Back Pain, Fractures, Spasms Endocrine: Yes Diabetes, Insulin dep, Hypothyroidsim HEENT: No Hearing Impairment: Hard of Hearing Cancer: Yes Ovarian Psychosocial: Yes ADD/ADHD, Bipolar, Schizophrenia Integumentary: No Blood Disorders: No Family Medical History No Pertinent Family Hx Physical Exam Vital Signs Vital Signs - First Documented 05/28/20 17:03 Temp 36.7 Pulse 107 Resp 20 B/P (MAP) 135/75 (95) Pulse Ox 95 O2 Delivery Room Air Capillary Refill : Height, Weight, BMI Height: '" Weight: 275lbs. oz. 124.907950ej; 55.38 BMI Method:Stated General Appearance: no apparent distress HEENT: PERRL/EOMI Neck: full range of motion, supple Cardiovascular: normal peripheral pulses, regular rate, rhythm Respiratory: lungs clear, normal breath sounds Gastrointestinal: non tender, soft Back: normal inspection Extremities: normal capillary refill, other (tenderness to right shoulder but no obvious deformity with full range of motion, tenderness to left ankle with no swelling, or obvious deformity.) Neurologic/Psychiatric: alert, normal mood/affect, oriented x 3 Skin: normal color, warm/dry Progress/Results/Core Measures Results/Orders My Orders Orders - AMBREEN LEGER DO Ankle 3 View Left (05/28/20 17:09) Shoulder 3 View Right (05/28/20 17:09) Ketorolac Injection (Toradol Injection) (05/28/20 17:59) Vital Signs/I&O 05/28/20 17:03 Temp 36.7 Pulse 107 Resp 20 B/P (MAP) 135/75 (95) Pulse Ox 95 O2 Delivery Room Air Diagnostic Imaging Diagonstic Imaging: Xray Plain Films/CT/US/NM/MRI: ankle, other (shoulder ) Comments No acute fracture or dislocation Reviewed: Reviewed by Me, Reviewed/Discussed Departure Impression Primary Impression: Contusion of right shoulder Qualified Codes: S40.011A - Contusion of right shoulder, initial encounter Additional Impression: Left ankle sprain Qualified Codes: S93.402A - Sprain of unspecified ligament of left ankle, initial encounter Disposition: 01 HOME, SELF-CARE Condition: Stable Departure-Patient Inst. Referrals: JAILENE BAUTISTA MD (PCP/Family) Primary Care Physician Patient Instructions: Foot Sprain (DC), Shoulder Pain ED, Contusion (DC) Add. Discharge Instructions: 4% topical lidocaine with menthol use as directed on package Tylenol or ibuprofen as needed for pain Follow-up with your primary care provider and 4-5 days if symptoms worsen or not improving All discharge instructions reviewed with patient and/or family. Voiced understanding. AMBREEN LEGER DO May 28, 2020 17:09
[2020-05-28] MEDS ORDERED: KETOROLAC 60 MG/2 ML VIAL IM STA (17:59)
--- NOTE | 2020-05-28 18:07 | Diagnostic Imaging Report ---
EXAMINATION: Left ankle 3 views. HISTORY: Fall. COMPARISON: None available. FINDINGS: There is an old left medial malleolar fracture. No acute fracture is seen. Small heel spur is present. There is mild ankle joint osteoarthritis. Soft tissue swelling is present in the left lower extremity. IMPRESSION: No acute fracture in the left ankle. Dictated by: Dictated on workstation # [id number]
--- NOTE | 2020-05-28 18:07 | Diagnostic Imaging Report ---
EXAMINATION: Right shoulder 2 or more views. HISTORY: Fall. COMPARISON: None available. FINDINGS: Alignment is normal. No fracture is seen. Glenohumeral joint is normal. There is a subacromial spur. There is mild acromioclavicular osteoarthritis. IMPRESSION: No fracture or dislocation in the right shoulder. Dictated by: Dictated on workstation # [id number]
[2020-05-28 18:23] VITALS: BP 154/89
== END 2020-05-28 18:32 | disposition home or self-care (01) ==
LOC: EDUNIT# 16:57 → ER FS 16:59
DX: S93.402A Sprain of unspecified ligament of left ankle, initial encounter (principal); S40.011A Contusion of right shoulder, initial encounter; F20.9 Schizophrenia, unspecified; J44.9 Chronic obstructive pulmonary disease, unspecified; F31.9 Bipolar disorder, unspecified; E11.9 Type 2 diabetes mellitus without complications; Z85.43 Personal history of malignant neoplasm of ovary; Z77.22 Contact with and (suspected) exposure to environmental tobacco smoke (acute) (chronic); Z88.1 Allergy status to other antibiotic agents; Z88.8 Allergy status to other drugs, medicaments and biological substances; Z86.711 Personal history of pulmonary embolism; Z79.01 Long term (current) use of anticoagulants; W19.XXXA Unspecified fall, initial encounter
CPT/HCPCS: 73030; 73610

== ENCOUNTER → 2020-08-05 | Outpatient (CLI) | payer MEDICAID ==
[~2020-08-05] MED LIST changes: +BUTA-235 PO; -BUTA1TAB9 PO; +MONT10TA32 PO; -MONT10TA97 PO
--- NOTE | 2020-08-05 17:29 | Diagnostic Imaging Report ---
Indication: Fall, right shoulder pain. Comparison: None. Findings: 2 views of the right shoulder demonstrate mild degenerative changes of the AC and glenohumeral joint. There is an osteophyte projecting off the acromion. There is no acute fracture or dislocation. No osseous lesion. Impression: Mild degenerative changes without fracture. Dictated by: Dictated on workstation # [id number]
== END ==
LOC: RAD FS 17:03
PROVIDERS: ATTEND Nurse Practitioner Family
DX: M19.011 Primary osteoarthritis, right shoulder (principal); G89.29 Other chronic pain; M62.838 Other muscle spasm; Z98.890 Other specified postprocedural states; W19.XXXA Unspecified fall, initial encounter
CPT/HCPCS: 73030

== ENCOUNTER 2020-08-06 22:24 | Emergency (ER) | payer MEDICAID ==
[~2020-08-06] VITALS: Ht 157.5 cm; Wt 139.7 kg
[2020-08-06 22:32] VITALS: BP 136/90
--- NOTE | 2020-08-06 22:42 | ED General ---
General Chief Complaint: Trauma-Non Activation Stated Complaint: DENTURES STUCK IN MOUTH Source of Information: Patient History of Present Illness Date Seen by Provider: Aug 06, 2020 Time Seen by Provider: 10:30 Initial Comments Put in her dentures this morning and used Fixodent. Gerardight unable to remove them, so came to ER for help no other concerns Allergies and Home Medications Allergies Coded Allergies: doxycycline (Unverified Allergy, Mild, nauseated, 08/01/09) spinach (Unverified Allergy, Mild, 08/01/09) alprazolam (Verified Allergy, Unknown, 07/18/19) diazepam (Verified Allergy, Unknown, 07/18/19) sumatriptan (Verified Allergy, Unknown, 07/18/19) Home Medications Albuterol Sulfate 1 Puff Puff, 2 PUFF INH Q4H PRN for COUGH, (Reported) Cefdinir 300 Mg Capsule, 300 MG PO BID Prescribed by: LEONOR CAMARGO on 03/29/20 1340 Furosemide 40 Mg Tablet, 40 MG PO BID, (Reported) Gabapentin 600 Mg Tablet, 1,200 MG PO TID, (Reported) TAKES 2 (600MG) TABS Glimepiride 2 Mg Tablet, 2 MG PO BID, (Reported) Haloperidol 10 Mg Tablet, 10 MG PO TID, (Reported) Lurasidone HCl 120 Mg Tablet, 120 MG PO 1800, (Reported) TAKES 120MG + 40MG TO EQUAL 160MG DAILY Lurasidone HCl 40 Mg Tablet, 40 MG PO 1800, (Reported) TAKES 120MG + 40MG TO EQUAL 160MG DAILY Montelukast Sodium 10 Mg Tablet, 10 MG PO DAILY, (Reported) Phenytoin Sodium Extended 200 Mg Capsule, 200 MG PO BID, (Reported) Quetiapine Fumarate 100 Mg Tablet, 300 MG PO DAILY, (Reported) TAKES 3 (100MG) TABS Rivaroxaban 20 Mg Tablet, 20 MG PO DAILY, (Reported) Topiramate 100 Mg Tablet, 200 MG PO BID, (Reported) TAKES 2 (100MG) TABS Trazodone HCl 100 Mg Tablet, 200 MG PO HS, (Reported) TAKES 2 (100MG) TABS Venlafaxine HCl 150 Mg Cap.er.24h, 300 MG PO DAILY, (Reported) TAKES 2 (150MG) CAPS Patient Home Medication List Home Medication List Reviewed: Yes Review of Systems Review of Systems Constitutional: no symptoms reported EENTM: dental problems, other (can't remove dentures); No hoarseness, No mouth pain, No mouth swelling, No nose congestion, No throat pain, No throat swelling Past Efhdgom-Wostkl-Calvnb Hx Past Med/Social Hx: Reviewed Nursing Past Med/Soc Hx Patient Social History Alcohol Use: Denies Use Smoking Status: Current Everyday Smoker Type Used: Cigarettes 2nd Hand Smoke Exposure: Yes Recent Hopitalizations: No Immunizations Up To Date Date of Pneumonia Vaccine: Dec 14, 2012 Date of Influenza Vaccine: Mar 04, 2013 Seasonal Allergies Seasonal Allergies: No Past Medical History Surgeries: Yes (HIP, suprapubic catheter, Dental) Appendectomy, Gallbladder, Hysterectomy, Orthopedic Respiratory: Yes Asthma, Pneumonia, Chronic Bronchitis, Pulmonary Embolism, COPD, Emphysema Cardiac: Yes (CHF) Neurological: Yes Neuropathy 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 Disorders: No 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 Sexually Transmitted Disease: No HIV/AIDS: No Genitourinary: Yes Kidney Stones, Neurogenic Bladder, UTI-Chronic Gastrointestinal: Yes Abdominal Hernia, Gastroesophageal Reflux, Chronic Constipation, Irritable Bowel Musculoskeletal: Yes Arthritis, Fibromyalgia, Back Injury, Chronic Back Pain, Fractures, Spasms Endocrine: Yes Diabetes, Insulin dep, Hypothyroidsim HEENT: No Hearing Impairment: Hard of Hearing Cancer: Yes Ovarian Psychosocial: Yes ADD/ADHD, Bipolar, Schizophrenia Integumentary: No Blood Disorders: No Family Medical History No Pertinent Family Hx Physical Exam Vital Signs Vital Signs - First Documented 08/06/20 22:32 Temp 36.1 Pulse 95 Resp 18 B/P (MAP) 136/90 (105) Pulse Ox 96 O2 Delivery Room Air Capillary Refill : Height, Weight, BMI Height: '" Weight: 275lbs. oz. 124.265011of; 43.00 BMI Method:Stated General Appearance: No Apparent Distress, WD/WN HEENT: Normal ENT Inspection, Moist Mucous Membranes, Other (intact dentures) Neck: Non Tender, Supple Progress/Results/Core Measures Suspected Sepsis SIRS Temperature: Pulse: Respiratory Rate: Blood Pressure / Mean: Results/Orders Vital Signs/I&O 08/06/20 22:32 Temp 36.1 Pulse 95 Resp 18 B/P (MAP) 136/90 (105) Pulse Ox 96 O2 Delivery Room Air Capillary Refill : Progress Note : Progress Note attempted to manually assist removal of patients upper dentures.....left the room to find a small surgical retractor and when I had returned she removed both her upper and lower dentures herself. Departure Impression Primary Impression: Poorly fitting dentures Disposition: 01 HOME, SELF-CARE Condition: Improved Departure-Patient Inst. Decision time for Depature: 22:42 Referrals: ANA HASSAN APRN (PCP/Family) Primary Care Physician ALBA FELTON DO Aug 06, 2020 22:42
== END 2020-08-06 22:45 | disposition home or self-care (01) ==
LOC: EDUNIT# 22:24 → ER FS 22:25
DX: Z97.2 Presence of dental prosthetic device (complete) (partial) (principal); J44.9 Chronic obstructive pulmonary disease, unspecified; F31.9 Bipolar disorder, unspecified; F20.9 Schizophrenia, unspecified; F17.210 Nicotine dependence, cigarettes, uncomplicated; Z88.1 Allergy status to other antibiotic agents; Z88.8 Allergy status to other drugs, medicaments and biological substances; Z86.711 Personal history of pulmonary embolism; Z85.43 Personal history of malignant neoplasm of ovary; Z79.01 Long term (current) use of anticoagulants
CPT/HCPCS: 99282

== ENCOUNTER 2020-08-17 00:13 | Emergency (ER) | payer MEDICAID ==
[2020-08-17 00:39] VITALS: BP 163/97
--- NOTE | 2020-08-17 00:39 | ED Lower Extremity ---
General Chief Complaint: Lower Extremity Stated Complaint: LEG PAIN Nursing Triage Note: Pt presents with left lower leg pain. Pt states she stopped her blood thinner several days ago so that she could have a dental procedure done. Pt states her left leg started getting red and she was worried she could have a blood clot Nursing Sepsis Screen: No Definite Risk Source: patient History of Present Illness Date Seen by Provider: Aug 17, 2020 Time Seen by Provider: 00:15 Initial Comments 50-year-old female presenting with concerns of redness, swelling, pain to her l eft medial calf and leg. She has been off of her Xarelto for 7 days says she had a dental procedure today on Sunday, 16 August. She has had ill fitting dentures and they had tried shaving down her gums to make it wear the dentures which fit better. She has not had any bleeding or problems with her mouth since late morning early afternoon. This evening she noticed increased pain redness swelling and tenderness to the medial aspect of her left calf and lower leg. She is not more short of breath than normal. She has chronic COPD and shortness of breath anyway. She was unsure if she needed to restart her Xarelto early or wait till tomorrow night as she had planned. Since she was unsure about it she came in to be evaluated tonight rather than go to bed and continue to have pain and swelling overnight. Allergies and Home Medications Allergies Coded Allergies: doxycycline (Unverified Allergy, Mild, nauseated, 08/01/09) spinach (Unverified Allergy, Mild, 08/01/09) alprazolam (Verified Allergy, Unknown, 07/18/19) diazepam (Verified Allergy, Unknown, 07/18/19) sumatriptan (Verified Allergy, Unknown, 07/18/19) Home Medications Albuterol Sulfate 1 Puff Puff, 2 PUFF INH Q4H PRN for COUGH, (Reported) Cefdinir 300 Mg Capsule, 300 MG PO BID Prescribed by: LEONOR CAMARGO on 03/29/20 1340 Furosemide 40 Mg Tablet, 40 MG PO BID, (Reported) Gabapentin 600 Mg Tablet, 1,200 MG PO TID, (Reported) TAKES 2 (600MG) TABS Glimepiride 2 Mg Tablet, 2 MG PO BID, (Reported) Haloperidol 10 Mg Tablet, 10 MG PO TID, (Reported) Lurasidone HCl 120 Mg Tablet, 120 MG PO 1800, (Reported) TAKES 120MG + 40MG TO EQUAL 160MG DAILY Lurasidone HCl 40 Mg Tablet, 40 MG PO 1800, (Reported) TAKES 120MG + 40MG TO EQUAL 160MG DAILY Montelukast Sodium 10 Mg Tablet, 10 MG PO DAILY, (Reported) Phenytoin Sodium Extended 200 Mg Capsule, 200 MG PO BID, (Reported) Quetiapine Fumarate 100 Mg Tablet, 300 MG PO DAILY, (Reported) TAKES 3 (100MG) TABS Rivaroxaban 20 Mg Tablet, 20 MG PO DAILY, (Reported) Topiramate 100 Mg Tablet, 200 MG PO BID, (Reported) TAKES 2 (100MG) TABS Trazodone HCl 100 Mg Tablet, 200 MG PO HS, (Reported) TAKES 2 (100MG) TABS Venlafaxine HCl 150 Mg Cap.er.24h, 300 MG PO DAILY, (Reported) TAKES 2 (150MG) CAPS Patient Home Medication List Home Medication List Reviewed: Yes Review of Systems Constitutional: No chills, No fever EENTM: mouth pain (improving from where she had dental procedure today) Respiratory: see HPI Cardiovascular: no symptoms reported Gastrointestinal: no symptoms reported Genitourinary: no symptoms reported Musculoskeletal: see HPI Skin: see HPI Psychiatric/Neurological: Anxiety Past Ikbzwbr-Xanuni-Wrarcc Hx Past Med/Social Hx: Reviewed Nursing Past Med/Soc Hx Patient Social History Alcohol Use: Denies Use Smoking Status: Current Everyday Smoker Type Used: Cigarettes 2nd Hand Smoke Exposure: Yes Recent Infectious Disease Expo: No Recent Hopitalizations: No Immunizations Up To Date Date of Pneumonia Vaccine: Dec 14, 2012 Date of Influenza Vaccine: Mar 04, 2013 Seasonal Allergies Seasonal Allergies: No Past Medical History Surgeries: Yes (HIP, suprapubic catheter, Dental) Appendectomy, Gallbladder, Hysterectomy, Orthopedic Respiratory: Yes Asthma, Pneumonia, Chronic Bronchitis, Pulmonary Embolism, COPD, Emphysema Cardiac: Yes (CHF) Neurological: Yes Neuropathy 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 Disorders: No 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 Sexually Transmitted Disease: No HIV/AIDS: No Genitourinary: Yes Kidney Stones, Neurogenic Bladder, UTI-Chronic Gastrointestinal: Yes Abdominal Hernia, Gastroesophageal Reflux, Chronic Constipation, Irritable Bowel Musculoskeletal: Yes Arthritis, Fibromyalgia, Back Injury, Chronic Back Pain, Fractures, Spasms Endocrine: Yes Diabetes, Insulin dep, Hypothyroidsim HEENT: No Hearing Impairment: Hard of Hearing Cancer: Yes Ovarian Psychosocial: Yes ADD/ADHD, Bipolar, Schizophrenia Integumentary: No Blood Disorders: No Family Medical History No Pertinent Family Hx Physical Exam Vital Signs Vital Signs - First Documented 08/17/20 00:17 Temp 36.5 Pulse 106 Resp 20 B/P (MAP) 163/97 (119) Pulse Ox 93 O2 Delivery Room Air Capillary Refill : Less Than 3 Seconds Height, Weight, BMI Height: '" Weight: 275lbs. oz. 124.167872tx; 56.00 BMI Method:Stated General Appearance: no apparent distress, obese HEENT: other (no bleeding, oozing or irritation to maxillary portion of mouth where she reports having shaving procedure done today to help her dentures fit better.) Cardiovascular: normal peripheral pulses, regular rate, rhythm Respiratory: chest non-tender, no respiratory distress, no accessory muscle use, decreased breath sounds, rhonchi, wheezing Legs: left leg pain, left leg soft tissue tenderness (mild tenderness with mild redness and nodularity and swelling to left medial leg), left leg swelling Neurologic/Tendon: normal sensation, normal motor functions Neurologic/Psychiatric: alert, oriented x 3 Skin: other (mild erythema to left medial leg/calf with mild tenderness and superficial nodules just under the skin, consistent with superficial thrombophlebitis.) Progress/Results/Core Measures Results/Orders Vital Signs/I&O 08/17/20 00:17 Temp 36.5 Pulse 106 Resp 20 B/P (MAP) 163/97 (119) Pulse Ox 93 O2 Delivery Room Air Blood Pressure Mean: 119 Progress Progress Note : Progress Note Could order D-dimer and an outpatient ultrasound but the main treatment she needs is to restart her Xarelto. As there is no irritation or oozing or bleeding inside her mouth from where she had the dental procedure earlier today encouraged her to restart the Xarelto. Counseled to monitor for bleeding. If there is a superficial or deep vein thrombosis then the Xarelto would start treating that. If she has worsening shortness of breath or increasing pain then further testing can be done. Patient declined having an outpatient ultrasound to be done and declined having any labs done tonight. She was reassured with being told that restarting the Xarelto would help treat any possible blood clot either superficial or deep in her left leg. Departure Impression Primary Impression: Pain and swelling of left lower extremity Additional Impressions: Hx of deep venous thrombosis Superficial thrombophlebitis of left leg Disposition: HOME, SELF-CARE Condition: Stable Departure-Patient Inst. Decision time for Depature: 00:37 Referrals: ANA HASSAN APRN (PCP/Family) Primary Care Physician Patient Instructions: Superficial Phlebitis Add. Discharge Instructions: Restart your Xarelto tonight. Watch for bleeding or oozing in your mouth from where you had your procedure today with dentist. If having more problems/concerns could return or check with clinic about ultrasound but the Xarelto will start treating for blood clots and thin your blood once you start taking it. All discharge instructions reviewed with patient and/or family. Voiced understanding. TASH ALARCON MD Aug 17, 2020 00:39
[2020-08-18] MEDS ORDERED: ACHD5005 PO (16:52)
== END 2020-08-17 00:40 | disposition home or self-care (01) ==
LOC: EDUNIT# 00:13 → ER FS 00:15
DX: I80.02 Phlebitis and thrombophlebitis of superficial vessels of left lower extremity (principal); F31.9 Bipolar disorder, unspecified; J43.9 Emphysema, unspecified; M79.7 Fibromyalgia; E11.40 Type 2 diabetes mellitus with diabetic neuropathy, unspecified; I50.9 Heart failure, unspecified; J18.9 Pneumonia, unspecified organism; K58.9 Irritable bowel syndrome, unspecified; F20.9 Schizophrenia, unspecified; F17.210 Nicotine dependence, cigarettes, uncomplicated; Z87.442 Personal history of urinary calculi; Z88.1 Allergy status to other antibiotic agents; Z88.8 Allergy status to other drugs, medicaments and biological substances; Z79.01 Long term (current) use of anticoagulants; Z79.84 Long term (current) use of oral hypoglycemic drugs
CPT/HCPCS: 99282

== ENCOUNTER 2020-08-18 16:11 | Emergency (ER) | payer MEDICAID ==
[~2020-08-18] VITALS: Ht 157 cm; Wt 139.0 kg
[2020-08-18] MEDS ORDERED: HYDROcodone/APAP 5 MG/325 MG (LORTAB) TAB PO ONE (16:30)
--- NOTE | 2020-08-18 16:39 | ED Upper Extremity ---
General Chief Complaint: Upper Extremity Stated Complaint: RT WRIST PAIN Source: patient Exam Limitations: no limitations History of Present Illness Date Seen by Provider: Aug 18, 2020 Time Seen by Provider: 16:20 Initial Comments Patient presents ER by private conveyance from home with chief complaint she had a fall onto outstretched right wrist that was flexed. She has a hematoma on her dorsal distal wrist which she states happened just prior to arrival. She was here in the ER last night for concern of a blood clot after being off of her Xarelto for the past 2 weeks related to dental procedures. She has a history of blood clots and pulmonary embolism. She is not having any shortness of air today. She is having pain that she rates as a 10 out of 10 in her right wrist. She denies a history of fracture in her wrist but she has had a right fractured elbow in the past. No surgery. Allergies and Home Medications Allergies Coded Allergies: doxycycline (Unverified Allergy, Mild, nauseated, 08/01/09) spinach (Unverified Allergy, Mild, 08/01/09) alprazolam (Verified Allergy, Unknown, 07/18/19) diazepam (Verified Allergy, Unknown, 07/18/19) sumatriptan (Verified Allergy, Unknown, 07/18/19) Home Medications Albuterol Sulfate 1 Puff Puff, 2 PUFF INH Q4H PRN for COUGH, (Reported) Cefdinir 300 Mg Capsule, 300 MG PO BID Prescribed by: LEONOR CAMARGO on 03/29/20 1340 Furosemide 40 Mg Tablet, 40 MG PO BID, (Reported) Gabapentin 600 Mg Tablet, 1,200 MG PO TID, (Reported) TAKES 2 (600MG) TABS Glimepiride 2 Mg Tablet, 2 MG PO BID, (Reported) Haloperidol 10 Mg Tablet, 10 MG PO TID, (Reported) Hydrocodone/Acetaminophen 1 Each Tablet, 1 TAB PO Q6H PRN for PAIN-MODERATE (5- 7) Prescribed by: MAUREEN PARSONS on 08/18/20 1653 Lurasidone HCl 120 Mg Tablet, 120 MG PO 1800, (Reported) TAKES 120MG + 40MG TO EQUAL 160MG DAILY Lurasidone HCl 40 Mg Tablet, 40 MG PO 1800, (Reported) TAKES 120MG + 40MG TO EQUAL 160MG DAILY Montelukast Sodium 10 Mg Tablet, 10 MG PO DAILY, (Reported) Phenytoin Sodium Extended 200 Mg Capsule, 200 MG PO BID, (Reported) Quetiapine Fumarate 100 Mg Tablet, 300 MG PO DAILY, (Reported) TAKES 3 (100MG) TABS Rivaroxaban 20 Mg Tablet, 20 MG PO DAILY, (Reported) Topiramate 100 Mg Tablet, 200 MG PO BID, (Reported) TAKES 2 (100MG) TABS Trazodone HCl 100 Mg Tablet, 200 MG PO HS, (Reported) TAKES 2 (100MG) TABS Venlafaxine HCl 150 Mg Cap.er.24h, 300 MG PO DAILY, (Reported) TAKES 2 (150MG) CAPS Patient Home Medication List Home Medication List Reviewed: Yes Review of Systems Constitutional: No chills, No diaphoresis EENTM: No ear discharge, No ear pain Respiratory: No cough, No short of breath Cardiovascular: No edema, No palpitations Gastrointestinal: No abdominal pain, No nausea, No vomiting Genitourinary: No discharge, No dysuria Musculoskeletal: see HPI; No back pain; joint pain All Other Systems Reviewed Negative Unless Noted: Yes Past Caverlj-Keabtx-Aozbwb Hx Patient Social History Alcohol Use: Denies Use Smoking Status: Former Smoker Type Used: Cigarettes 2nd Hand Smoke Exposure: Yes Recent Hopitalizations: No Immunizations Up To Date Date of Pneumonia Vaccine: Dec 14, 2012 Date of Influenza Vaccine: Mar 04, 2013 Seasonal Allergies Seasonal Allergies: No Past Medical History Surgeries: Yes (HIP, suprapubic catheter, Dental) Appendectomy, Gallbladder, Hysterectomy, Orthopedic Respiratory: Yes Asthma, Pneumonia, Chronic Bronchitis, Pulmonary Embolism, COPD, Emphysema Cardiac: Yes (CHF) Neurological: Yes Neuropathy 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 Disorders: No 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 Sexually Transmitted Disease: No HIV/AIDS: No Genitourinary: Yes Kidney Stones, Neurogenic Bladder, UTI-Chronic Gastrointestinal: Yes Abdominal Hernia, Gastroesophageal Reflux, Chronic Constipation, Irritable Bowel Musculoskeletal: Yes Arthritis, Fibromyalgia, Back Injury, Chronic Back Pain, Fractures, Spasms Endocrine: Yes Diabetes, Insulin dep, Hypothyroidsim HEENT: No Hearing Impairment: Hard of Hearing Cancer: Yes Ovarian Psychosocial: Yes ADD/ADHD, Bipolar, Schizophrenia Integumentary: No Blood Disorders: No Family Medical History No Pertinent Family Hx Physical Exam Vital Signs Capillary Refill : Height, Weight, BMI Height: '" Weight: 275lbs. oz. 124.730010bh; 56.00 BMI Method:Stated General Appearance: WD/WN, mild distress HEENT: PERRL/EOMI, pharynx normal Cardiovascular: normal peripheral pulses, regular rate, rhythm, other (Symmetric 2+ out of 4 bilateral radial pulse) Respiratory: no respiratory distress, no accessory muscle use Shoulder: normal inspection, non-tender, no evidence of injury, normal ROM Elbow/Forearm: normal inspection, non-tender, no evidence of injury, normal ROM, Right Wrist: Yes asymmetry, Yes ecchymosis (Dorsal right wrist), Yes limited ROM (Limited due to pain. Right wrist), Yes soft tissue tenderness (3 cm hematoma over the distal right wrist dorsal side), Yes swelling (Hematoma) Neurologic/Tendon: normal sensation, normal motor functions, normal tendon functions, responds to pain Neurologic/Psychiatric: no motor/sensory deficits, alert, normal mood/affect, oriented x 3 Procedures/Interventions Splinting and Joint Reduction : Location: Right wrist Pre-Proc Neuro Vasc Exam: normal Post-Proc Neuro Vasc Exam: normal, unchanged from pre-exam Progress Sugar tong splint with 3 inch fiberglass placed without issue. Large sling placed. Torres wrap: Yes Arm Sling: Large Hand-Made Type: fiberglass Splint Application: Short Arm (Sugar tong right forearm) Progress/Results/Core Measures Results/Orders My Orders Orders - MAUREEN PARSONS Hydrocodone/Apap 5/325 Tablet (Lortab 5 (08/18/20 16:30) Wrist 3 View Right (08/18/20 16:22) Medications Given in ED Current Medications Medications Dose Ordered Sig/Kurtis Route Start Time Stop Time Status Last Admin Dose Admin Acetaminophen/ Hydrocodone Bitart 1 ea ONCE ONCE PO 08/18/20 16:30 08/18/20 16:31 DC 08/18/20 16:29 1 EA Progress Progress Note : Time: 16:36 Progress Note [place] for pain, wrist x-ray x3 views. Ice pack provided. Diagnostic Imaging Diagonstic Imaging: Xray Plain Films/CT/US/NM/MRI: other (Right wrist) Comments NAME: JERALD VELAZQUEZ REC#: [id number] PT STATUS: REG ER : 1970 PHYSICIAN: MAUREEN PARSONS MD ADMIT DATE: 08/18/20/ER FS Signed Date of Exam:08/18/20 WRIST 3 VIEW RIGHT Indication: Right wrist pain 3 views the right wrist show comminuted impacted fracture of the distal radius with slight anterior angulation of the distal component. There is associated ulnar styloid fracture. IMPRESSION: Impacted fracture distal radius with volar angulation of the distal component and associated ulnar styloid fracture. Dictated by: Dictated on workstation # [id number] Dict: 08/18/20 1637 Trans: 08/18/20 1638 [id number] Interpreted by: RADHA THORPE MD Electronically signed by: RADHA THORPE MD 08/18/20 1638 Reviewed: Reviewed by Me Departure Impression Primary Impression: Distal radius fracture, right Qualified Codes: S52.501A - Unspecified fracture of the lower end of right radius, initial encounter for closed fracture Additional Impressions: Fracture of right ulnar styloid Qualified Codes: S52.614A - Nondisplaced fracture of right ulna styloid process, initial encounter for closed fracture Fall Qualified Codes: W19.XXXA - Unspecified fall, initial encounter Disposition: HOME, SELF-CARE Condition: Improved Departure-Patient Inst. Decision time for Depature: 16:46 Referrals: ANA HASSAN APRN (PCP) Primary Care Physician ANA MARIA COLES MD Patient Instructions: Wrist Fracture (DC) Add. Discharge Instructions: Keep the splint clean and dry. Elevate the arm above the level of your heart. Ice applied directly to the wrist for 20 minutes every 2 hours for the first 2 to 3 days to reduce swelling and pain. Ibuprofen 800 mg every 8 hours as necessary for pain. Hydrocodone 1 tablet every 6 hours as necessary for severe, breakthrough pain. Hydrocodone will cause drowsiness increasing your risk of falls and further injury and should be taken with caution. Do not mix with alcohol. Hydrocodone will cause constipation and you should take it with MiraLAX once or twice a day or Colace to maintain regularity. Follow-up early next week with Dr. Coles, orthopedic surgeon for continued management of your broken wrist. If you have numbness and tingling in your fingers then you can elevate the arm above the level of your heart. Loosen the elastic wrap and rewrap it less tight. You may take the splint off to bathe if necessary and after your skin is dry then you may reapply the splint exactly as it came off. All discharge instructions reviewed with patient and/or family. Voiced understanding. Scripts Hydrocodone/Acetaminophen (Hydrocodone-Acetamin 5-325 mg) 1 Each Tablet 1 TAB PO Q6H PRN for PAIN-MODERATE (5-7), #20 TAB 0 Refills Prov: MAUREEN PARSONS 08/18/20 Work/School Note: Work Release Form Date Seen in the Emergency Department: Aug 18, 2020 Return to Work: Aug 19, 2020 Restrictions: Need Release from Doctor Other Restrictions Listed Below: Right arm in a splint and sling and no lifting until released by surgeon. Copy Copies To 1: ANA MARIA COLES MD, TITUS J Aug 18, 2020 16:39
[2020-08-18] MEDS ORDERED: ACHD5005 PO (16:52)
[2020-08-18 17:03] VITALS: BP 146/97
== END 2020-08-18 17:05 | disposition home or self-care (01) ==
LOC: EDUNIT# 16:11 → ER FS 16:14
DX: S52.614A Nondisplaced fracture of right ulna styloid process, initial encounter for closed fracture (principal); S52.591A Other fractures of lower end of right radius, initial encounter for closed fracture; T45.516A Underdosing of anticoagulants, initial encounter; E11.9 Type 2 diabetes mellitus without complications; F90.9 Attention-deficit hyperactivity disorder, unspecified type; F31.9 Bipolar disorder, unspecified; F20.9 Schizophrenia, unspecified; J43.9 Emphysema, unspecified; Z87.891 Personal history of nicotine dependence; Z77.22 Contact with and (suspected) exposure to environmental tobacco smoke (acute) (chronic); Z86.718 Personal history of other venous thrombosis and embolism; Z91.138 Patient's unintentional underdosing of medication regimen for other reason; Z86.711 Personal history of pulmonary embolism; Z87.01 Personal history of pneumonia (recurrent); Z86.79 Personal history of other diseases of the circulatory system; Z87.81 Personal history of (healed) traumatic fracture; Z85.43 Personal history of malignant neoplasm of ovary; Z79.84 Long term (current) use of oral hypoglycemic drugs; Z79.01 Long term (current) use of anticoagulants; Z79.899 Other long term (current) drug therapy; Z88.1 Allergy status to other antibiotic agents; Z88.8 Allergy status to other drugs, medicaments and biological substances; W19.XXXA Unspecified fall, initial encounter
CPT/HCPCS: 29125; 73110

== ENCOUNTER 2020-08-21 15:51 | Emergency (ER) | payer MEDICAID ==
[~2020-08-21 15:51] MED LIST changes: +ACHD5005 PO
--- NOTE | 2020-08-21 16:18 | ED Upper Extremity ---
General Chief Complaint: Upper Extremity Stated Complaint: UNK Nursing Triage Note: Fall at home from standing position. Broke R wrist 2 days ago and it is splinted. Fell today and hit the same wrist. Is complaining of pain in that arm at 9/10. Also having neck pain. Nursing Sepsis Screen: No Definite Risk Source: patient History of Present Illness Date Seen by Provider: Aug 21, 2020 Time Seen by Provider: 16:00 Initial Comments This morbidly obese 50 y/o female presents w/ pain in right forearm/wrist since recent fracture (still in splint & sling) and worse pain today after fall while walking on stairs. Hit head and neck hurts a little but no LOC. No laceration or overt bleeding. No pain elsewhere. No prior neck fx. On chronic anticoagulation (xarelto) and on hydrocodone w/o relief and states that she had been used to daily oxycodone but insurance won't cover it. Scheduled to see ortho on Sunday. Onset: just prior to arrival Pain/Injury Location: right forearm, right wrist Method of Injury: fell Modifying Factors: Improves With Movement Allergies and Home Medications Allergies Coded Allergies: doxycycline (Unverified Allergy, Mild, nauseated, 08/01/09) spinach (Unverified Allergy, Mild, 08/01/09) alprazolam (Verified Allergy, Unknown, 07/18/19) diazepam (Verified Allergy, Unknown, 07/18/19) sumatriptan (Verified Allergy, Unknown, 07/18/19) Home Medications Albuterol Sulfate 1 Puff Puff, 2 PUFF INH Q4H PRN for COUGH, (Reported) Cefdinir 300 Mg Capsule, 300 MG PO BID Prescribed by: LEONOR CAMARGO on 03/29/20 1340 Furosemide 40 Mg Tablet, 40 MG PO BID, (Reported) Gabapentin 600 Mg Tablet, 1,200 MG PO TID, (Reported) TAKES 2 (600MG) TABS Glimepiride 2 Mg Tablet, 2 MG PO BID, (Reported) Haloperidol 10 Mg Tablet, 10 MG PO TID, (Reported) Hydrocodone/Acetaminophen 1 Each Tablet, 1 TAB PO Q6H PRN for PAIN-MODERATE (5- 7) Prescribed by: MAUREEN PARSONS on 08/18/20 1653 Lurasidone HCl 120 Mg Tablet, 120 MG PO 1800, (Reported) TAKES 120MG + 40MG TO EQUAL 160MG DAILY Lurasidone HCl 40 Mg Tablet, 40 MG PO 1800, (Reported) TAKES 120MG + 40MG TO EQUAL 160MG DAILY Montelukast Sodium 10 Mg Tablet, 10 MG PO DAILY, (Reported) Phenytoin Sodium Extended 200 Mg Capsule, 200 MG PO BID, (Reported) Quetiapine Fumarate 100 Mg Tablet, 300 MG PO DAILY, (Reported) TAKES 3 (100MG) TABS Rivaroxaban 20 Mg Tablet, 20 MG PO DAILY, (Reported) Topiramate 100 Mg Tablet, 200 MG PO BID, (Reported) TAKES 2 (100MG) TABS Trazodone HCl 100 Mg Tablet, 200 MG PO HS, (Reported) TAKES 2 (100MG) TABS Venlafaxine HCl 150 Mg Cap.er.24h, 300 MG PO DAILY, (Reported) TAKES 2 (150MG) CAPS Patient Home Medication List Home Medication List Reviewed: Yes Review of Systems Constitutional: no symptoms reported EENTM: no symptoms reported Respiratory: no symptoms reported Cardiovascular: no symptoms reported Gastrointestinal: no symptoms reported Genitourinary: no symptoms reported : No Musculoskeletal: see HPI Skin: no symptoms reported Psychiatric/Neurological: Denies Headache, Denies Numbness, Denies Seizure, Denies Weakness Past Vvpdmvc-Chpoqr-Whwykv Hx Patient Social History Alcohol Use: Denies Use Smoking Status: Current Everyday Smoker Type Used: Cigarettes 2nd Hand Smoke Exposure: Yes Recent Infectious Disease Expo: No Recent Hopitalizations: No Immunizations Up To Date Date of Pneumonia Vaccine: Dec 14, 2012 Date of Influenza Vaccine: Mar 04, 2013 Seasonal Allergies Seasonal Allergies: No Past Medical History Surgeries: Yes (HIP, suprapubic catheter, Dental) Appendectomy, Gallbladder, Hysterectomy, Orthopedic Respiratory: Yes Asthma, Pneumonia, Chronic Bronchitis, Pulmonary Embolism, COPD, Emphysema Cardiac: Yes (CHF) Neurological: Yes Neuropathy 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 Disorders: No 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 Sexually Transmitted Disease: No HIV/AIDS: No Genitourinary: Yes Kidney Stones, Neurogenic Bladder, UTI-Chronic Gastrointestinal: Yes Abdominal Hernia, Gastroesophageal Reflux, Chronic Constipation, Irritable Bowel Musculoskeletal: Yes Arthritis, Fibromyalgia, Back Injury, Chronic Back Pain, Fractures, Spasms Endocrine: Yes Diabetes, Insulin dep, Hypothyroidsim HEENT: No Hearing Impairment: Hard of Hearing Cancer: Yes Ovarian Psychosocial: Yes ADD/ADHD, Bipolar, Schizophrenia Integumentary: No Blood Disorders: No Family Medical History No Pertinent Family Hx Physical Exam Vital Signs Vital Signs - First Documented 08/21/20 16:00 Temp 36.2 Pulse 95 Resp 18 B/P (MAP) 142/99 (113) Pulse Ox 98 Capillary Refill : Less Than 3 Seconds Height, Weight, BMI Height: '" Weight: 275lbs. oz. 124.843125bt; 56.00 BMI Method:Stated General Appearance: moderate distress HEENT: PERRL/EOMI Neck: other (ROM not addressed but no focal midline tenderness or step off or crepitus) Cardiovascular: normal peripheral pulses Respiratory: chest non-tender, lungs clear Gastrointestinal: non tender, soft Back: no CVA tenderness, no vertebral tenderness Shoulder: normal inspection, non-tender Elbow/Forearm: Right (Right forearm in splint and sling from previous fx; NT above and below splint), Left (FROM and nontender left) Wrist: Yes limited ROM (in splint), Yes pain Hand: non-tender Neurologic/Tendon: normal sensation, normal motor functions Neurologic/Psychiatric: no motor/sensory deficits, alert, oriented x 3 Skin: normal color, warm/dry Progress/Results/Core Measures Results/Orders Lab Results Laboratory Tests Test 08/21/20 16:24 Range/Units White Blood Count 11.7 H 4.3-11.0 10^3/uL Red Blood Count 4.14 L 4.35-5.85 10^6/uL Hemoglobin 14.4 11.5-16.0 G/DL Hematocrit 44 35-52 % Mean Corpuscular Volume 106 H 80-99 FL Mean Corpuscular Hemoglobin 35 H 25-34 PG Mean Corpuscular Hemoglobin Concent 33 32-36 G/DL Red Cell Distribution Width 15.3 H 10.0-14.5 % Platelet Count 191 130-400 10^3/uL Mean Platelet Volume 10.9 H 7.4-10.4 FL Sodium Level 141 135-145 MMOL/L Potassium Level 4.4 3.6-5.0 MMOL/L Chloride Level 105 98-107 MMOL/L Carbon Dioxide Level 30 21-32 MMOL/L Anion Gap 6 5-14 MMOL/L Blood Urea Nitrogen 11 7-18 MG/DL Creatinine 0.85 0.60-1.30 MG/DL Estimat Glomerular Filtration Rate > 60 BUN/Creatinine Ratio 13 Glucose Level 162 H 70-105 MG/DL Calcium Level 8.7 8.5-10.1 MG/DL Serum Alcohol < 10 <10 MG/DL My Orders Orders - AGNES KATE MD Cbc No Diff (08/21/20 16:08) Basic Metabolic Panel (08/21/20 16:08) Alcohol (08/21/20 16:08) Ct Head/Cervical Spine Wo (08/21/20 16:08) Chest 1 View Ap/Pa Only (08/21/20 16:08) End Tidal Co2 (08/21/20 16:08) Monitor-Rhythm Ecg Trace Only (08/21/20 16:08) Ed Iv/Invasive Line Start (08/21/20 16:08) Forearm 2 View Right (08/21/20 16:08) Oxycodone/Apap 5/325mg Tablet (Percocet (08/21/20 17:45) Vital Signs/I&O 08/21/20 16:00 Temp 36.2 Pulse 95 Resp 18 B/P (MAP) 142/99 (113) Pulse Ox 98 Blood Pressure Mean: 113 Diagnostic Imaging Diagonstic Imaging: Xray (chest, right forearm: fx distal radius 7 ulna; CXR WNL), CT (Brain & C-spine: no acute IC hemorrhage or mass effect; no def fx) Comments IMPRESSION: 1. The fractures involving the distal radius and the ulnar styloid seen previously are again evident and do not appear to have changed significantly. There is no acute bony abnormality noted. 2. There is now a fiberglass cast in place. CT HEAD: There is no mass, shift of the midline or hemorrhage to suggest an acute intracranial abnormality. The normal tentorial blush is evident. The ventricles are not abnormally dilated and stable in size when compared to the prior exam of 02/01/2020. The bone windows show no evidence for a fracture or for a destructive lesion. The orbits are symmetrical and within normal limits. The sinuses are generally clear. IMPRESSION: 1. There is no evidence for an acute intracranial abnormality. 2. If clinical concern regarding an underlying abnormality persists, then MRI would be recommended for further study. CT CERVICAL SPINE: There are no prior studies for comparison. This study is less than optimal due to motion artifact. The reconstructed parasagittal images show that there is straightening of the cervical spine. I suspect that this is related to muscle spasm and/or positioning. There is moderate degenerative disc disease involving the cervical spine. There is no high-grade central stenosis identified. There is no fracture or acute bony abnormality evident. There is no sign of retropharyngeal edema although the retropharyngeal tissues do seem somewhat prominent. The thyroid gland was obscured by streak artifact. The lung apices, where visualized, are clear. IMPRESSION: There is no evidence for an acute bony abnormality on this suboptimal exam. Reviewed: Reviewed by Me Departure Impression Primary Impression: Fall Additional Impressions: Fracture of radius, distal, with ulna, right, closed Cervical strain, acute Chronic anticoagulation Narcotic dependence Disposition: 01 HOME, SELF-CARE Condition: Stable Departure-Patient Inst. Referrals: AAN HASSAN APRN (PCP/Family) Primary Care Physician Patient Instructions: Acute Pain, Adult, Neck Pain, Forearm Fracture (DC), Preventing Falls, Cast Care ED AGNES KATE MD Aug 21, 2020 16:18
[2020-08-21 16:31] LABS: HEMOGLOBIN 14.4 G/DL (11.5-16.0); WHITE BLOOD COUNT 11.7 10^3/uL (4.3-11.0)
[2020-08-21 16:32] LABS: MEAN PLATELET VOLUME 10.9 FL (7.4-10.4)
[2020-08-21 16:49] LABS: BUN/CREATININE RATIO 13; CALCIUM 8.7 MG/DL (8.5-10.1); CARBON DIOXIDE 30 MMOL/L (21-32); CHLORIDE 105 MMOL/L (98-107); CREATININE SERUM 0.85 MG/DL (0.60-1.30); GFR ESTIMATED > 60; GLUCOSE 162 MG/DL (70-105); POTASSIUM 4.4 MMOL/L (3.6-5.0); SODIUM 141 MMOL/L (135-145)
--- NOTE | 2020-08-21 17:32 | Diagnostic Imaging Report ---
PROCEDURE: CT head and CT cervical spine without contrast. TECHNIQUE: Multiple contiguous axial images were obtained through the brain and cervical spine without the use of intravenous contrast. Sagittal and coronal reformations through the cervical spine were then performed. Auto Exposure Controls were utilized during the CT exam to meet ALARA standards for radiation dose reduction. INDICATION: Fell, head and neck pain CT HEAD: There is no mass, shift of the midline or hemorrhage to suggest an acute intracranial abnormality. The normal tentorial blush is evident. The ventricles are not abnormally dilated and stable in size when compared to the prior exam of 02/01/2020. The bone windows show no evidence for a fracture or for a destructive lesion. The orbits are symmetrical and within normal limits. The sinuses are generally clear. IMPRESSION: 1. There is no evidence for an acute intracranial abnormality. 2. If clinical concern regarding an underlying abnormality persists, then MRI would be recommended for further study. CT CERVICAL SPINE: There are no prior studies for comparison. This study is less than optimal due to motion artifact. The reconstructed parasagittal images show that there is straightening of the cervical spine. I suspect that this is related to muscle spasm and/or positioning. There is moderate degenerative disc disease involving the cervical spine. There is no high-grade central stenosis identified. There is no fracture or acute bony abnormality evident. There is no sign of retropharyngeal edema although the retropharyngeal tissues do seem somewhat prominent. The thyroid gland was obscured by streak artifact. The lung apices, where visualized, are clear. IMPRESSION: There is no evidence for an acute bony abnormality on this suboptimal exam. Dictated by: Dictated on workstation # [id number]
--- NOTE | 2020-08-21 17:34 | Diagnostic Imaging Report ---
INDICATION: Fell, shortness of breath. EXAMINATION: Portable erect AP chest at 4:59 p.m. FINDINGS: The heart size is within normal limits and stable when compared to 03/28/2020. The lungs are clear. There is no sign of failure, pneumonia or a pleural effusion. There is no pneumothorax identified nor is there any sign of a pulmonary contusion. The mediastinum is not widened. The osseous structures are intact. IMPRESSION: There is no evidence for an acute cardiopulmonary abnormality. Dictated by: Dictated on workstation # [id number]
--- NOTE | 2020-08-21 17:36 | Diagnostic Imaging Report ---
INDICATION: Injury, arm pain. EXAMINATION: Right forearm at 5:05 p.m. AP and lateral views were obtained. FINDINGS: As noted on the prior right wrist exam of 08/18/2020 there are slightly displaced slightly impacted fractures involving the distal radial metaphysis as well as an avulsion fracture of the ulnar styloid. The main fracture fragments seems similar in appearance to the prior exam. There is no fracture or acute bony abnormality appreciated. There is mild degenerative disease of the radiocarpal joint. The elbow joint is well maintained. The soft tissues are unremarkable. There is now a fiberglass cast in place. IMPRESSION: 1. The fractures involving the distal radius and the ulnar styloid seen previously are again evident and do not appear to have changed significantly. There is no acute bony abnormality noted. 2. There is now a fiberglass cast in place. Dictated by: Dictated on workstation # [id number]
[2020-08-21] MEDS ORDERED: oxyCODONE/APAP 5/325MG (PERCOCET 5) TABLET PO ONE (17:45)
[2020-08-21 17:55] VITALS: BP 139/99
== END 2020-08-21 17:57 | disposition home or self-care (01) ==
LOC: EDUNIT# 15:51 → ER FS 15:52
DX: S52.501A Unspecified fracture of the lower end of right radius, initial encounter for closed fracture (principal); S52.611A Displaced fracture of right ulna styloid process, initial encounter for closed fracture; S16.1XXA Strain of muscle, fascia and tendon at neck level, initial encounter; E11.9 Type 2 diabetes mellitus without complications; F31.9 Bipolar disorder, unspecified; F90.9 Attention-deficit hyperactivity disorder, unspecified type; F20.9 Schizophrenia, unspecified; E66.01 Morbid (severe) obesity due to excess calories; J43.9 Emphysema, unspecified; F17.210 Nicotine dependence, cigarettes, uncomplicated; Z79.01 Long term (current) use of anticoagulants; Z79.891 Long term (current) use of opiate analgesic; Z86.711 Personal history of pulmonary embolism; Z87.81 Personal history of (healed) traumatic fracture; Z79.84 Long term (current) use of oral hypoglycemic drugs; Z79.899 Other long term (current) drug therapy; Z88.1 Allergy status to other antibiotic agents; Z88.8 Allergy status to other drugs, medicaments and biological substances; W10.8XXA Fall (on) (from) other stairs and steps, initial encounter
CPT/HCPCS: 36415; 70450; 71045; 72125; 73090; 80048; 80320; 85027; 93041

== ENCOUNTER → 2020-08-23 | Outpatient (CLI) | payer MEDICAID ==
--- NOTE | 2020-08-23 12:23 | Diagnostic Imaging Report ---
INDICATION: Follow-up fracture. COMPARISON: None FINDINGS: Frontal and lateral radiographic views of the right wrist were obtained and again show nonacute fractures of the distal radius and ulna. Evaluation is partially obscured secondary to overlying radiopaque cast material, but fracture fragments appear to be in stable alignment. No new acute fracture or dislocation is seen. Joint spaces are maintained. No unexpected radiopaque foreign bodies are identified. IMPRESSION: 1. Redemonstration of stable appearing nonacute fractures of the right wrist. Dictated by: Dictated on workstation # [id number]
== END ==
LOC: RAD FS 11:04
PROVIDERS: ATTEND Nurse Practitioner
DX: S52.541D Smith's fracture of right radius, subsequent encounter for closed fracture with routine healing (principal); X58.XXXD Exposure to other specified factors, subsequent encounter
CPT/HCPCS: 73100

== ENCOUNTER 2020-08-27 20:41 | Emergency (ER) | payer MEDICAID ==
[~2020-08-27] VITALS: Ht 157.4 cm; Wt 139.7 kg
[2020-08-27 20:47] VITALS: BP 140/83
--- NOTE | 2020-08-27 21:30 | ED Upper Extremity ---
General Chief Complaint: Upper Extremity Stated Complaint: FELL,RT WRIST PAIN Source: patient History of Present Illness Date Seen by Provider: Aug 27, 2020 Time Seen by Provider: 20:45 Initial Comments Patient is a 50-year-old female right-handed who presents with complaints of right wrist pain and swelling after having fractured right wrist and having a cast placed earlier this week per Dr. Rajan. Patient reports tingling in her right hand and pain in her wrist with hand movement. Patient has not been using an arm sling. No other symptoms or complaints. Onset: this evening Pain/Injury Location: right wrist Method of Injury: other Modifying Factors: Improves With Other Allergies and Home Medications Allergies Coded Allergies: doxycycline (Unverified Allergy, Mild, nauseated, 08/01/09) spinach (Unverified Allergy, Mild, 08/01/09) alprazolam (Verified Allergy, Unknown, 07/18/19) diazepam (Verified Allergy, Unknown, 07/18/19) sumatriptan (Verified Allergy, Unknown, 07/18/19) Home Medications Albuterol Sulfate 1 Puff Puff, 2 PUFF INH Q4H PRN for COUGH, (Reported) Cefdinir 300 Mg Capsule, 300 MG PO BID Prescribed by: LEONOR CAMARGO on 03/29/20 1340 Furosemide 40 Mg Tablet, 40 MG PO BID, (Reported) Gabapentin 600 Mg Tablet, 1,200 MG PO TID, (Reported) TAKES 2 (600MG) TABS Glimepiride 2 Mg Tablet, 2 MG PO BID, (Reported) Haloperidol 10 Mg Tablet, 10 MG PO TID, (Reported) Hydrocodone/Acetaminophen 1 Each Tablet, 1 TAB PO Q6H PRN for PAIN-MODERATE (5- 7) Prescribed by: MAUREEN PARSONS on 08/18/20 1653 Lurasidone HCl 120 Mg Tablet, 120 MG PO 1800, (Reported) TAKES 120MG + 40MG TO EQUAL 160MG DAILY Lurasidone HCl 40 Mg Tablet, 40 MG PO 1800, (Reported) TAKES 120MG + 40MG TO EQUAL 160MG DAILY Montelukast Sodium 10 Mg Tablet, 10 MG PO DAILY, (Reported) Phenytoin Sodium Extended 200 Mg Capsule, 200 MG PO BID, (Reported) Quetiapine Fumarate 100 Mg Tablet, 300 MG PO DAILY, (Reported) TAKES 3 (100MG) TABS Rivaroxaban 20 Mg Tablet, 20 MG PO DAILY, (Reported) Topiramate 100 Mg Tablet, 200 MG PO BID, (Reported) TAKES 2 (100MG) TABS Trazodone HCl 100 Mg Tablet, 200 MG PO HS, (Reported) TAKES 2 (100MG) TABS Venlafaxine HCl 150 Mg Cap.er.24h, 300 MG PO DAILY, (Reported) TAKES 2 (150MG) CAPS Patient Home Medication List Home Medication List Reviewed: Yes Review of Systems Constitutional: no symptoms reported Musculoskeletal: other (Tingling, wrist pain) Past Wmwmnla-Jaflvx-Wgsqaw Hx Past Med/Social Hx: Reviewed Nursing Past Med/Soc Hx Patient Social History Type Used: Cigarettes 2nd Hand Smoke Exposure: Yes Recent Hopitalizations: No Immunizations Up To Date Date of Pneumonia Vaccine: Dec 14, 2012 Date of Influenza Vaccine: Mar 04, 2013 Seasonal Allergies Seasonal Allergies: No Past Medical History Surgeries: Yes (HIP, suprapubic catheter, Dental) Appendectomy, Gallbladder, Hysterectomy, Orthopedic Respiratory: Yes Asthma, Pneumonia, Chronic Bronchitis, Pulmonary Embolism, COPD, Emphysema Cardiac: Yes (CHF) Neurological: Yes Neuropathy 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 Disorders: No 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 Sexually Transmitted Disease: No HIV/AIDS: No Genitourinary: Yes Kidney Stones, Neurogenic Bladder, UTI-Chronic Gastrointestinal: Yes Abdominal Hernia, Gastroesophageal Reflux, Chronic Constipation, Irritable Bowel Musculoskeletal: Yes Arthritis, Fibromyalgia, Back Injury, Chronic Back Pain, Fractures, Spasms Endocrine: Yes Diabetes, Insulin dep, Hypothyroidsim HEENT: No Hearing Impairment: Hard of Hearing Cancer: Yes Ovarian Psychosocial: Yes ADD/ADHD, Bipolar, Schizophrenia Integumentary: No Blood Disorders: No Family Medical History No Pertinent Family Hx Physical Exam Vital Signs Capillary Refill : Height, Weight, BMI Height: '" Weight: 275lbs. oz. 124.909054jd; 56.00 BMI Method:Stated General Appearance: no apparent distress Wrist: Yes pain, Yes soft tissue tenderness, Yes swelling (Right forearm cast in place. Patient with notable swelling to the posterior of her wrist and fingers. Good cap refill present.) Neurologic/Tendon: normal sensation (Right hand fingers sensation intact.), normal motor functions Neurologic/Psychiatric: no motor/sensory deficits, alert, oriented x 3 Departure Communication (Admissions) A seam was cut down the entire length of the cast in with spread and spread open quarter inch with relief of all patient's symptoms. The patient was then di scharged home with an arm sling. She is to follow-up with Dr. Rajan for further management. Return precautions reviewed. Impression Primary Impression: Right wrist pain Disposition: HOME, SELF-CARE Condition: Critical Departure-Patient Inst. Decision time for Depature: 21:28 Referrals: ANA HASSAN APRN (PCP/Family) Primary Care Physician Patient Instructions: Cast Care ED Add. Discharge Instructions: Please follow-up with Dr. Rajan on Sunday for reevaluation. Wear arm sling. All discharge instructions reviewed with patient and/or family. Voiced understanding. EMILY DOMÍNGUEZ DO Aug 27, 2020 21:30
== END 2020-08-27 21:34 | disposition home or self-care (01) ==
LOC: EDUNIT# 20:41 → ER FS 20:43
DX: M25.431 Effusion, right wrist (principal); E11.40 Type 2 diabetes mellitus with diabetic neuropathy, unspecified; F31.9 Bipolar disorder, unspecified; F20.9 Schizophrenia, unspecified; F90.9 Attention-deficit hyperactivity disorder, unspecified type; J43.9 Emphysema, unspecified; Z77.22 Contact with and (suspected) exposure to environmental tobacco smoke (acute) (chronic); Z86.79 Personal history of other diseases of the circulatory system; Z85.43 Personal history of malignant neoplasm of ovary; Z86.711 Personal history of pulmonary embolism; Z79.01 Long term (current) use of anticoagulants; Z79.899 Other long term (current) drug therapy; Z79.84 Long term (current) use of oral hypoglycemic drugs; Z95.9 Presence of cardiac and vascular implant and graft, unspecified; Z88.1 Allergy status to other antibiotic agents; Z88.8 Allergy status to other drugs, medicaments and biological substances
CPT/HCPCS: 99282

== ENCOUNTER → 2020-09-07 | Outpatient (CLI) | payer MEDICAID ==
--- NOTE | 2020-09-07 15:23 | Diagnostic Imaging Report ---
INDICATION: Followup of right wrist fracture. COMPARISON: 08/23/2020. FINDINGS: The mildly angulated fracture involving the metaphysis of the right distal radius extending into the articulating surface is again demonstrated without significant change in position. There has been some callus formation develop although the fracture lines are still visible. Carpal bones are intact without evidence of osteonecrosis or subluxation. IMPRESSION: Mildly angulated fracture of the distal radius involving the articulating surface without significant change in position showing some early bony callus. Dictated by: Dictated on workstation # [id number]
== END ==
LOC: RAD FS 13:22
PROVIDERS: ATTEND Nurse Practitioner
DX: S52.541D Smith's fracture of right radius, subsequent encounter for closed fracture with routine healing (principal); S52.611D Displaced fracture of right ulna styloid process, subsequent encounter for closed fracture with routine healing
CPT/HCPCS: 73100

== ENCOUNTER 2020-09-20 22:56 | Emergency (ER) | payer MEDICAID ==
[~2020-09-20] VITALS: Ht 157.4 cm; Wt 139.7 kg
[2020-09-20 22:57] VITALS: BP 143/91
[2020-09-20] MEDS ORDERED: ONDANSETRON 4 MG/2 ML (SDV) Z0FRAN IVP STA (23:13)
[2020-09-20] MEDS ORDERED: RX-ONDANSETRON 4 MG ODT (ZOFRAN) PPK #4 PO PRN (23:15)
[2020-09-20] MEDS ORDERED: ONDA4TAB11 PO (23:18)
--- NOTE | 2020-09-20 23:18 | ED General ---
General Chief Complaint: Abdominal/GI Problems Stated Complaint: VOMITING Nursing Triage Note: Pt in per [facility] with nausea and vomitng since she had a colonoscopy earlier today. reports they did complete it and has to go back for a barium. Nursing Sepsis Screen: No Definite Risk Source of Information: Patient, EMS, Old Records History of Present Illness Date Seen by Provider: Sep 20, 2020 Time Seen by Provider: 22:56 Initial Comments 50-year-old female presenting by EMS with complaints of nausea and vomiting since having colonoscopy earlier today. She states that they were unable to complete it due to stool still present in her bowel. She has had increased shortness of breath due to not being able to use her regular breathing treatments since she has been having the nausea and vomiting. She does not have any medication for nausea at home. She denies having any pain. She has had no fever or chills. She just finished a course of antibiotics and steroids for bronchitis. On her home oxygen she is maintaining a good O2 sat of 97%. She feels better after getting Zofran and a DuoNeb breathing treatment by EMS. She is requesting additional nausea medicine and to be discharged home as she has an appointment to see orthopedics for her wrist and her nurse practitioner Anand on Sunday for follow-up. She does not feel that she needs any additional testing and just wants medicine for nausea since she was not able to stop the vomiting long enough to take breathing treatments at home. She has been keeping down Sprite and water and last urinated around 2129 without difficulty. Allergies and Home Medications Allergies Coded Allergies: doxycycline (Unverified Allergy, Mild, nauseated, 08/01/09) spinach (Unverified Allergy, Mild, 08/01/09) alprazolam (Verified Allergy, Unknown, 07/18/19) diazepam (Verified Allergy, Unknown, 07/18/19) sumatriptan (Verified Allergy, Unknown, 07/18/19) Home Medications Albuterol Sulfate 1 Puff Puff, 2 PUFF INH Q4H PRN for COUGH, (Reported) Cefdinir 300 Mg Capsule, 300 MG PO BID Prescribed by: LEONOR CAMARGO on 03/29/20 1340 Furosemide 40 Mg Tablet, 40 MG PO BID, (Reported) Gabapentin 600 Mg Tablet, 1,200 MG PO TID, (Reported) TAKES 2 (600MG) TABS Glimepiride 2 Mg Tablet, 2 MG PO BID, (Reported) Haloperidol 10 Mg Tablet, 10 MG PO TID, (Reported) Hydrocodone/Acetaminophen 1 Each Tablet, 1 TAB PO Q6H PRN for PAIN-MODERATE (5- 7) Prescribed by: MAUREEN PARSONS on 08/18/20 1653 Lurasidone HCl 120 Mg Tablet, 120 MG PO 1800, (Reported) TAKES 120MG + 40MG TO EQUAL 160MG DAILY Lurasidone HCl 40 Mg Tablet, 40 MG PO 1800, (Reported) TAKES 120MG + 40MG TO EQUAL 160MG DAILY Montelukast Sodium 10 Mg Tablet, 10 MG PO DAILY, (Reported) Ondansetron 4 Mg Tab.rapdis, 4 MG PO Q6H PRN for NAUSEA/VOMITING Prescribed by: TASH ALARCON on 09/20/20 2318 Phenytoin Sodium Extended 200 Mg Capsule, 200 MG PO BID, (Reported) Quetiapine Fumarate 100 Mg Tablet, 300 MG PO DAILY, (Reported) TAKES 3 (100MG) TABS Rivaroxaban 20 Mg Tablet, 20 MG PO DAILY, (Reported) Topiramate 100 Mg Tablet, 200 MG PO BID, (Reported) TAKES 2 (100MG) TABS Trazodone HCl 100 Mg Tablet, 200 MG PO HS, (Reported) TAKES 2 (100MG) TABS Venlafaxine HCl 150 Mg Cap.er.24h, 300 MG PO DAILY, (Reported) TAKES 2 (150MG) CAPS Patient Home Medication List Home Medication List Reviewed: Yes Review of Systems Review of Systems Constitutional: No chills, No diaphoresis, No fever EENTM: no symptoms reported Respiratory: No hemoptysis, No orthopnea, No phlegm; short of breath, wheezing Cardiovascular: No chest pain Gastrointestinal: see HPI; No abdominal pain Genitourinary: no symptoms reported Skin: no symptoms reported Psychiatric/Neurological: No Symptoms Reported Past Vdnmaxh-Vaedzx-Fofxre Hx Past Med/Social Hx: Reviewed Nursing Past Med/Soc Hx Patient Social History Type Used: Cigarettes 2nd Hand Smoke Exposure: Yes Recent Infectious Disease Expo: No Recent Hopitalizations: No Immunizations Up To Date Date of Pneumonia Vaccine: Dec 14, 2012 Date of Influenza Vaccine: Mar 04, 2013 Seasonal Allergies Seasonal Allergies: No Past Medical History Surgeries: Yes (HIP, suprapubic catheter, Dental) Appendectomy, Gallbladder, Hysterectomy, Orthopedic Respiratory: Yes Asthma, Pneumonia, Chronic Bronchitis, Pulmonary Embolism, COPD, Emphysema Cardiac: Yes (CHF) Neurological: Yes Neuropathy 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 Disorders: No 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 Sexually Transmitted Disease: No HIV/AIDS: No Genitourinary: Yes Kidney Stones, Neurogenic Bladder, UTI-Chronic Gastrointestinal: Yes Abdominal Hernia, Gastroesophageal Reflux, Chronic Constipation, Irritable Bowel Musculoskeletal: Yes Arthritis, Fibromyalgia, Back Injury, Chronic Back Pain, Fractures, Spasms Endocrine: Yes Diabetes, Insulin dep, Hypothyroidsim HEENT: No Hearing Impairment: Hard of Hearing Cancer: Yes Ovarian Psychosocial: Yes ADD/ADHD, Bipolar, Schizophrenia Integumentary: No Blood Disorders: No Family Medical History No Pertinent Family Hx Physical Exam Vital Signs Vital Signs - First Documented 09/20/20 22:57 Temp 36.3 Pulse 70 Resp 16 B/P (MAP) 143/91 (108) Pulse Ox 97 O2 Delivery Nasal Cannula Capillary Refill : Less Than 3 Seconds Height, Weight, BMI Height: '" Weight: 275lbs. oz. 124.885053dw; 56.00 BMI Method:Stated General Appearance: WD/WN, Obese HEENT: PERRL/EOMI, Pharynx Normal Neck: Non Tender, Supple Respiratory: Chest Non Tender; No No Accessory Muscle Use, No No Respiratory Distress; Wheezing (end expiratory wheezes in bases bilaterally) Cardiovascular: Regular Rate, Rhythm, Normal Peripheral Pulses Gastrointestinal: Normal Bowel Sounds, No Pulsatile Mass, Non Tender, Soft Rectal: Deferred Extremity: Normal Capillary Refill Neurologic/Psychiatric: Alert, Oriented x3, optical glass etcher II-XII Norm as Tested Skin: Normal Color, Warm/Dry Progress/Results/Core Measures Suspected Sepsis Recent Fever Within 48 Hours: No Infection Criteria Present: None New/Unexplained Altered Menta: No Sepsis Screen: No Definite Risk SIRS Temperature: Pulse: 70 Respiratory Rate: 16 Blood Pressure 143 /91 Mean: 108 Results/Orders My Orders Orders - TASH ALARCON MD Ondansetron Injection (Zofran Injectio (09/20/20 23:13) Rx-Ondansetron Po (Rx-Zofran Po) (09/20/20 23:15) Vital Signs/I&O 09/20/20 22:57 Temp 36.3 Pulse 70 Resp 16 B/P (MAP) 143/91 (108) Pulse Ox 97 O2 Delivery Nasal Cannula Capillary Refill : Less Than 3 Seconds Blood Pressure Mean: 108 Progress Note : Progress Note Discussed with patient that her vital signs and exam look okay. However if she wanted to be further evaluated would involve blood work in addition to imaging of her chest and belly. Patient states that she would rather just take nausea medication and give more time for the anesthetic to wear out of her system. She feels that her symptoms and issues are related to the attempted colonoscopy today. She declines having any other testing done right now and states she has an appointment to follow-up with her regular provider and with orthopedics on Sunday. She will return or have them do further testing and evaluation if needed tomorrow. We will give an additional IV dose of Zofran here and discharged with a 4 pack of Zofran ODT. Sent a prescription for 2 days worth of Zofran ODT to the pharmacy. Counseled on follow-up and return precautions Departure Impression Primary Impression: Nausea and vomiting Qualified Codes: R11.14 - Bilious vomiting Additional Impression: Dyspnea Qualified Codes: R06.02 - Shortness of breath Disposition: HOME, SELF-CARE Condition: Improved Departure-Patient Inst. Decision time for Depature: 23:17 Referrals: ANA HASSAN APRN (PCP/Family) Primary Care Physician Patient Instructions: Nausea and Vomiting, Adult ED, Shortness of Breath, Adult ED Add. Discharge Instructions: Try the dissolving nausea medicine, Zofran, to help with nausea and vomiting. If this is from the anesthetic and medicines you got for the colonoscopy then it will wear off over the next 12-24 hours. Follow up with clinic as scheduled tomorrow and you could discuss further concerns with them. All discharge instructions reviewed with patient and/or family. Voiced understanding. Scripts Ondansetron (Ondansetron Odt) 4 Mg Tab.rapdis 4 MG PO Q6H PRN for NAUSEA/VOMITING for 2 Days, #8 TAB 0 Refills Prov: TASH ALARCON MD 09/20/20 TASH ALARCON MD Sep 20, 2020 23:18
== END 2020-09-20 23:33 | disposition home or self-care (01) ==
LOC: EDUNIT# 22:56 → ER FS 22:57
DX: R11.2 Nausea with vomiting, unspecified (principal); R06.00 Dyspnea, unspecified; E66.9 Obesity, unspecified; E11.9 Type 2 diabetes mellitus without complications; J44.9 Chronic obstructive pulmonary disease, unspecified; I50.9 Heart failure, unspecified; F31.9 Bipolar disorder, unspecified; F20.9 Schizophrenia, unspecified; G89.29 Other chronic pain; M54.9 Dorsalgia, unspecified; Z68.43 Body mass index [BMI] 50.0-59.9, adult; Z77.22 Contact with and (suspected) exposure to environmental tobacco smoke (acute) (chronic); Z88.1 Allergy status to other antibiotic agents; Z88.8 Allergy status to other drugs, medicaments and biological substances; Z79.01 Long term (current) use of anticoagulants; Z79.891 Long term (current) use of opiate analgesic

== ENCOUNTER → 2020-09-21 | Outpatient (CLI) | payer MEDICAID ==
--- NOTE | 2020-09-21 13:23 | Diagnostic Imaging Report ---
INDICATION: Right wrist fracture. FINDINGS: AP and lateral views of the right wrist show a fracture of the distal radius with volar angulation of the distal radius. The position and alignment are unchanged compared to 09/07/2020. IMPRESSION: Stable alignment of the distal right radius following splinting. Mild anterior angular deformity remains. Dictated by: Dictated on workstation # [id number]
== END ==
LOC: RAD FS 13:04
PROVIDERS: ATTEND Nurse Practitioner
DX: S52.541A Smith's fracture of right radius, initial encounter for closed fracture (principal); S52.611A Displaced fracture of right ulna styloid process, initial encounter for closed fracture
CPT/HCPCS: 73100

== ENCOUNTER → 2020-09-28 | Outpatient (CLI) | payer MEDICAID ==
--- NOTE | 2020-09-28 17:14 | Diagnostic Imaging Report ---
INDICATION: Fracture follow-up. COMPARISON: None available. TECHNIQUE: Two views of the right wrist are obtained. FINDINGS: The mildly comminuted fracture in the distal radius has stable alignment and position since prior examination. This includes less than 10 degrees of volar angulation of the distal radial articular surface. It is difficult to ascertain as there is progressive healing as prior exam had a fiberglass cast obscuring fine detail. Ulnar styloid fracture is in stable alignment. IMPRESSION: 1. Stable alignment of mildly comminuted distal radial fracture with approximately 10 degrees of volar angulation. Dictated by: Dictated on workstation # [id number]
== END ==
LOC: RAD FS 13:29
PROVIDERS: ATTEND Nurse Practitioner
DX: S52.541D Smith's fracture of right radius, subsequent encounter for closed fracture with routine healing (principal); S52.611D Displaced fracture of right ulna styloid process, subsequent encounter for closed fracture with routine healing
CPT/HCPCS: 73100

== ENCOUNTER 2020-10-03 16:03 | Emergency (ER) | payer MEDICAID ==
[~2020-10-03] VITALS: Ht 157.5 cm; Wt 132.5 kg
[2020-10-03] MEDS ORDERED: RT-ALBUTEROL/IPRATROPIUM 3 ML (DUONEB) VIAL INH ONE (16:30)
[2020-10-03 16:42] LABS: BASOPHILS # (AUTO) 0.1 10^3/uL (0.0-0.1); BASOPHILS % (AUTO) 0 % (0-10); EOSINOPHILS # (AUTO) 0.2 10^3/uL (0.0-0.3); EOSINOPHILS % (AUTO) 1 % (0-10); HEMATOCRIT 43 % (35-52); HEMOGLOBIN 14.6 G/DL (11.5-16.0); LYMPHOCYTES # (AUTO) 1.6 X 10^3 (1.0-4.0); LYMPHOCYTES % (AUTO) 13 % (12-44); MEAN CORPUSCULAR HEMOGLOBIN 37 PG (25-34); MEAN CORPUSCULAR HGB CONC 34 G/DL (32-36); MEAN CORPUSCULAR VOLUME 107 FL (80-99); MEAN PLATELET VOLUME 9.7 FL (7.4-10.4); MONOCYTES # (AUTO) 0.8 X 10^3 (0.0-1.0); MONOCYTES % (AUTO) 6 % (0-12); NEUTROPHILS # (AUTO) 9.6 X 10^3 (1.8-7.8); NEUTROPHILS % (AUTO) 78 % (42-75); PLATELET COUNT 198 10^3/uL (130-400); WHITE BLOOD COUNT 12.3 10^3/uL (4.3-11.0)
--- NOTE | 2020-10-03 16:48 | Diagnostic Imaging Report ---
EXAMINATION: Chest radiograph, portable AP view. DATE: 10/03/2020 4:42 PM INDICATION: 50-year-old female, weakness. Sepsis. COMPARISON: August 21, 2020. FINDINGS: Stable overall appearance of the cardiomediastinal silhouette. There is no identified pneumothorax. There is no large pleural effusion. There is no identified focal airspace consolidation. IMPRESSION: No identified acute cardiopulmonary abnormality. Dictated by: Dictated on workstation # [id number]
[2020-10-03 17:08] LABS: BACTERIA,URINE LARGE /HPF; BILIRUBIN,URINE NEGATIVE (NEGATIVE); CLARITY,URINE CLOUDY; COLOR,URINE YELLOW; GLUCOSE, URINE (UA) NEGATIVE (NEGATIVE); KETONES,URINE NEGATIVE (NEGATIVE); LEUKOCYTE ESTERASE ,URINE 1+ (NEGATIVE); NITRITE,URINE POSITIVE (NEGATIVE); PROTEIN,URINE NEGATIVE (NEGATIVE); WBC,URINE >100 /HPF
[2020-10-03 17:09] LABS: ALKALINE PHOSPHATASE 239 U/L (40-136); BILIRUBIN,TOTAL 0.2 MG/DL (0.1-1.0); BUN/CREATININE RATIO 11; CALCIUM 8.1 MG/DL (8.5-10.1); CARBON DIOXIDE 30 MMOL/L (21-32); CHLORIDE 92 MMOL/L (98-107); CREATININE SERUM 0.61 MG/DL (0.60-1.30); GFR ESTIMATED > 60; GLUCOSE 168 MG/DL (70-105); INR 0.9 (0.8-1.4); POTASSIUM 4.3 MMOL/L (3.6-5.0); PROTHROMBIN TIME PATIENT 12.2 SEC (12.2-14.7); SODIUM 131 MMOL/L (135-145)
[2020-10-03 17:10] LABS: ALANINE AMINOTRANSFERASE 17 U/L (0-55); ALBUMIN 3.8 GM/DL (3.2-4.5)
[2020-10-03] MEDS ORDERED: cefTRIAXone FOR IV USE 1,000 MG in WATER (STERILE) FOR INJECTION 10 ML IV ONE (17:15)
[2020-10-03 17:17] LABS: ABG BASE EXCESS 5.1 MMOL/L (-2.5-2.5); ABG OXYGEN SATURATION 76 % (94-100); ABG PCO2 66 MMHG (35-45); ABG PH 7.31 (7.37-7.43); ABG PO2 45 MMHG (79-93); ABG TCO2 35.2 MMOL/L (21.0-31.0)
[2020-10-03 17:18] LABS: INSPIRED O2 2; PATIENT TEMP 35.9; VENTILATOR NO
[2020-10-03 17:19] LABS: ALLENS TEST NEGATIVE
[2020-10-03 18:49] LABS: ABG BASE EXCESS 5.8 MMOL/L (-2.5-2.5); ABG OXYGEN SATURATION 38 % (94-100); ABG PCO2 62 MMHG (35-45); ABG PO2 24 MMHG (79-93); ABG TCO2 35.3 MMOL/L (21.0-31.0)
[2020-10-03 18:50] LABS: ALLENS TEST NEGATIVE; INSPIRED O2 21%; VENTILATOR NO
[2020-10-03 18:51] LABS: ABG PH 7.34 (7.37-7.43); PATIENT TEMP 35.9
--- NOTE | 2020-10-03 19:06 | ED General ---
General Chief Complaint: General Problems/Pain Stated Complaint: UNABLE TO STAND Nursing Triage Note: Patient brought to the ED by EMS for chief complaints of "jerkiness" and "unable to stand." Patient somnolent on arrival to ED, responsive to verbal stimuli, oriented x 4. Nursing Sepsis Screen: No Definite Risk Source of Information: Patient Exam Limitations: No Limitations History of Present Illness Date Seen by Provider: October 03, 2020 Time Seen by Provider: 16:00 Initial Comments Patient is a 50-year-old female with history of COPD and asthma who presents with increased shortness of breath and tremors over the past several hours. Nonproductive cough. No chest pain chest tightness. Denies unilateral leg pain. Bilateral peripheral edema. Patient is supplemental oxygen dependent and uses 2 L daytime and 5 L while on CPAP at night. Patient has been off her oxygen and CPAP machine for the past 3 days so she is being camping outdoors in the cabin. She did not take her medications during that time. She also reports swelling redness over her right preauricular region. No abdominal pain, nausea vomiting diarrhea. No other acute symptoms or complaints. Timing/Duration: 24 Hours Severity: Moderate Modifying Factors: improves with Other Associated Systoms: Shortness of Air Allergies and Home Medications Allergies Coded Allergies: doxycycline (Unverified Allergy, Mild, nauseated, 08/01/09) spinach (Unverified Allergy, Mild, 08/01/09) alprazolam (Verified Allergy, Unknown, 07/18/19) diazepam (Verified Allergy, Unknown, 07/18/19) sumatriptan (Verified Allergy, Unknown, 07/18/19) Home Medications Albuterol Sulfate 1 Puff Puff, 2 PUFF INH Q4H PRN for COUGH, (Reported) Cefdinir 300 Mg Capsule, 300 MG PO BID Prescribed by: LEONOR CAMARGO on 03/29/20 1340 Furosemide 40 Mg Tablet, 40 MG PO BID, (Reported) Gabapentin 600 Mg Tablet, 1,200 MG PO TID, (Reported) TAKES 2 (600MG) TABS Glimepiride 2 Mg Tablet, 2 MG PO BID, (Reported) Haloperidol 10 Mg Tablet, 10 MG PO TID, (Reported) Hydrocodone/Acetaminophen 1 Each Tablet, 1 TAB PO Q6H PRN for PAIN-MODERATE (5- 7) Prescribed by: MAUREEN PARSONS on 08/18/20 1653 Lurasidone HCl 120 Mg Tablet, 120 MG PO 1800, (Reported) TAKES 120MG + 40MG TO EQUAL 160MG DAILY Lurasidone HCl 40 Mg Tablet, 40 MG PO 1800, (Reported) TAKES 120MG + 40MG TO EQUAL 160MG DAILY Montelukast Sodium 10 Mg Tablet, 10 MG PO DAILY, (Reported) Ondansetron 4 Mg Tab.rapdis, 4 MG PO Q6H PRN for NAUSEA/VOMITING Prescribed by: TASH ALARCON on 09/20/20 2318 Phenytoin Sodium Extended 200 Mg Capsule, 200 MG PO BID, (Reported) Quetiapine Fumarate 100 Mg Tablet, 300 MG PO DAILY, (Reported) TAKES 3 (100MG) TABS Rivaroxaban 20 Mg Tablet, 20 MG PO DAILY, (Reported) Topiramate 100 Mg Tablet, 200 MG PO BID, (Reported) TAKES 2 (100MG) TABS Trazodone HCl 100 Mg Tablet, 200 MG PO HS, (Reported) TAKES 2 (100MG) TABS Venlafaxine HCl 150 Mg Cap.er.24h, 300 MG PO DAILY, (Reported) TAKES 2 (150MG) CAPS Patient Home Medication List Home Medication List Reviewed: Yes Review of Systems Review of Systems Constitutional: see HPI EENTM: see HPI Respiratory: see HPI Cardiovascular: see HPI Gastrointestinal: see HPI Musculoskeletal: see HPI Skin: see HPI Psychiatric/Neurological: See HPI Hematologic/Lymphatic: See HPI Immunological/Allergic: see HPI All Other Systems Reviewed Negative Unless Noted: Yes Past Yxytvsn-Bdfguh-Owmrcv Hx Past Med/Social Hx: Reviewed Nursing Past Med/Soc Hx Patient Social History Alcohol Use: Denies Use Smoking Status: Current Everyday Smoker Type Used: Cigarettes 2nd Hand Smoke Exposure: Yes Recent Infectious Disease Expo: No Recent Hopitalizations: No Immunizations Up To Date Date of Pneumonia Vaccine: Dec 14, 2012 Date of Influenza Vaccine: Mar 04, 2013 Seasonal Allergies Seasonal Allergies: No Past Medical History Surgeries: Yes (HIP, suprapubic catheter, Dental) Appendectomy, Gallbladder, Hysterectomy, Orthopedic Respiratory: Yes Asthma, Pneumonia, Chronic Bronchitis, Pulmonary Embolism, COPD, Emphysema Cardiac: Yes (CHF) Neurological: Yes Neuropathy 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 Disorders: No 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 [employer] History: Hysterectomy Sexually Transmitted Disease: No HIV/AIDS: No Genitourinary: Yes Kidney Stones, Neurogenic Bladder, UTI-Chronic Gastrointestinal: Yes Abdominal Hernia, Gastroesophageal Reflux, Chronic Constipation, Irritable Bowel Musculoskeletal: Yes Arthritis, Fibromyalgia, Back Injury, Chronic Back Pain, Fractures, Spasms Endocrine: Yes Diabetes, Insulin dep, Hypothyroidsim HEENT: No Hearing Impairment: Hard of Hearing Cancer: Yes Ovarian Psychosocial: Yes ADD/ADHD, Bipolar, Schizophrenia Integumentary: No Blood Disorders: No Family Medical History No Pertinent Family Hx Physical Exam Vital Signs Vital Signs - First Documented 10/03/20 16:10 Temp 35.9 Pulse 98 Resp 20 Pulse Ox 96 O2 Delivery Nasal Cannula O2 Flow Rate 2.00 Capillary Refill : Less Than 3 Seconds Height, Weight, BMI Height: '" Weight: 275lbs. oz. 124.739727qz; 53.00 BMI Method:Stated General Appearance: WD/WN, Anxious, Obese Eyes: Bilateral Eye Normal Inspection, Bilateral Eye PERRL, Bilateral Eye EOMI HEENT: PERRL/EOMI, Normal ENT Inspection, Pharynx Normal, Moist Mucous Membranes, Other (Preauricular redness, swelling with induration. No appreciated soft tissue fluctuance or abscess.) Neck: Full Range of Motion, Non Tender, Supple Respiratory: Decreased Breath Sounds, Rhonci, Wheezing Cardiovascular: Regular Rate, Rhythm, No Edema, No Gallop, No JVD Gastrointestinal: Non Tender, Soft Back: Normal Inspection Extremity: Non Tender, No Calf Tenderness Neurologic/Psychiatric: Alert, Oriented x3, inward toll operator II-XII Norm as Tested Skin: Normal Color Focused Exam Sepsis Stage: Ruled Out Lactate Level 10/03/20 16:20: Lactic Acid Level 2.02*H 10/03/20 18:55: Time of Focused Exam: 16:30 Respiratory: Decreased Breath Sounds Cardiovascular: Regular Rate, Rhythm Capillary Refill: NONE Skin: rash Lactic Acid Level Laboratory Tests Test 10/03/20 16:20 10/03/20 18:55 Lactic Acid Level 2.02 MMOL/L (0.50-2.00) *H Progress/Results/Core Measures Suspected Sepsis Recent Fever Within 48 Hours: No Infection Criteria Present: None New/Unexplained Altered Menta: No Sepsis Screen: No Definite Risk SIRS Temperature: Pulse: 98 Respiratory Rate: 20 Laboratory Tests 10/03/20 16:20: White Blood Count 12.3H Blood Pressure / Mean: 10/03/20 16:20: Lactic Acid Level 2.02*H 10/03/20 18:55: Laboratory Tests 10/03/20 16:20: Creatinine 0.61, INR Comment 0.9, Platelet Count 198, Total Bilirubin 0.2 Results/Orders Lab Results Laboratory Tests Test 10/03/20 16:20 10/03/20 16:44 10/03/20 17:00 10/03/20 18:45 Range/Units White Blood Count 12.3 H 4.3-11.0 10^3/uL Red Blood Count 3.99 L 4.35-5.85 10^6/uL Hemoglobin 14.6 11.5-16.0 G/DL Hematocrit 43 35-52 % Mean Corpuscular Volume 107 H 80-99 FL Mean Corpuscular Hemoglobin 37 H 25-34 PG Mean Corpuscular Hemoglobin Concent 34 32-36 G/DL Red Cell Distribution Width 15.4 H 10.0-14.5 % Platelet Count 198 130-400 10^3/uL Mean Platelet Volume 9.7 7.4-10.4 FL Immature Granulocyte % (Auto) 1 % Neutrophils (%) (Auto) 78 H 42-75 % Lymphocytes (%) (Auto) 13 12-44 % Monocytes (%) (Auto) 6 0-12 % Eosinophils (%) (Auto) 1 0-10 % Basophils (%) (Auto) 0 0-10 % Neutrophils # (Auto) 9.6 H 1.8-7.8 X 10^3 Lymphocytes # (Auto) 1.6 1.0-4.0 X 10^3 Monocytes # (Auto) 0.8 0.0-1.0 X 10^3 Eosinophils # (Auto) 0.2 0.0-0.3 10^3/uL Basophils # (Auto) 0.1 0.0-0.1 10^3/uL Immature Granulocyte # (Auto) 0.1 0.0-0.1 10^3/uL Prothrombin Time 12.2 12.2-14.7 SEC INR Comment 0.9 0.8-1.4 Activated Partial Thromboplast Time 30 24-35 SEC Sodium Level 131 L 135-145 MMOL/L Potassium Level 4.3 3.6-5.0 MMOL/L Chloride Level 92 L 98-107 MMOL/L Carbon Dioxide Level 30 21-32 MMOL/L Anion Gap 9 5-14 MMOL/L Blood Urea Nitrogen 7 7-18 MG/DL Creatinine 0.61 0.60-1.30 MG/DL Estimat Glomerular Filtration Rate > 60 BUN/Creatinine Ratio 11 Glucose Level 168 H 70-105 MG/DL Lactic Acid Level 2.02 *H 0.50-2.00 MMOL/L Calcium Level 8.1 L 8.5-10.1 MG/DL Corrected Calcium 8.3 L 8.5-10.1 MG/DL Total Bilirubin 0.2 0.1-1.0 MG/DL Aspartate Amino Transf (AST/SGOT) 14 5-34 U/L Alanine Aminotransferase (ALT/SGPT) 17 0-55 U/L Alkaline Phosphatase 239 H 40-136 U/L Troponin I < 0.30 <0.30 NG/ML Pro-B-Type Natriuretic Peptide 83.7 H <75.0 PG/ML Total Protein 7.0 6.4-8.2 GM/DL Albumin 3.8 3.2-4.5 GM/DL Urine Color YELLOW Urine Clarity CLOUDY Urine pH 6.0 5-9 Urine Specific [place] 1.025 H 1.016-1.022 Urine Protein NEGATIVE NEGATIVE Urine Glucose (UA) NEGATIVE NEGATIVE Urine Ketones NEGATIVE NEGATIVE Urine Nitrite POSITIVE H NEGATIVE Urine Bilirubin NEGATIVE NEGATIVE Urine Urobilinogen 2.0 < = 1.0 MG/DL Urine Leukocyte Esterase 1+ H NEGATIVE Urine RBC (Auto) NEGATIVE NEGATIVE Urine RBC NONE /HPF Urine WBC >100 H /HPF Urine Squamous Epithelial Cells 5-10 /HPF Urine Crystals NONE /LPF Urine Bacteria LARGE H /HPF Urine Casts NONE /LPF Urine Mucus NEGATIVE /LPF Urine Culture Indicated NO Blood Gas Puncture Site LEFT BRACHIAL LEFT BRACHIAL Blood Gas Patient Temperature 35.9 35.9 Arterial Blood pH 7.31 *L 7.34 *L 7.37-7.43 Arterial Blood Partial Pressure CO2 66 H 62 H 35-45 MMHG Arterial Blood Partial Pressure O2 45 L 24 *L 79-93 MMHG Arterial Blood HCO3 33 H 33 H 23-27 MMOL/L Arterial Blood Total CO2 35.2 H 35.3 H 21.0-31.0 MMOL/L Arterial Blood Oxygen Saturation 76 L 38 L 94-100 % Arterial Blood Base Excess 5.1 H 5.8 H -2.5-2.5 MMOL/L Eliu Test NEGATIVE NEGATIVE Blood Gas Ventilator Setting NO NO Blood Gas Inspired Oxygen 2 21% Test 5/2/21 18:55 Range/Units My Orders Orders - CATRACHITAEMILY RICHARDSON Cbc With Automated Diff (10/03/20 16:16) Comprehensive Metabolic Panel (10/03/20 16:16) Blood Culture (10/03/20 16:16) Sputum Culture (10/03/20 16:16) Urinalysis (10/03/20 16:16) Urine Culture (10/03/20 16:16) Protime With Inr (10/03/20 16:16) Partial Thromboplastin Time (10/03/20 16:16) Chest 1 View Ap/Pa Only (10/03/20 16:16) Ed Iv/Invasive Line Start (10/03/20 16:16) Ed Iv/Invasive Line Start (10/03/20 16:16) Vital Signs Adult Sepsis Patie Q15M (10/03/20 16:16) O2 (10/03/20 16:16) Remove Rings In Anticipation O (10/03/20 16:16) Lactic Acid Analyzer (10/03/20 16:16) Abg Ph (10/03/20 16:16) Troponin I Fs (10/03/20 16:16) Probnp Fs (10/03/20 16:16) Albuterol/Ipra Inhalation Soln (Duoneb I (10/03/20 16:30) Svn Small Volume Nebulizer (10/03/20 16:17) Arterial Blood Gas (10/03/20 17:13) Ceftriaxone For Iv Use (Rocephin For I (10/03/20 17:15) Bipap (Bilevel) Set Up (10/03/20 17:26) Arterial Blood Gas (10/03/20 18:28) Lactic Acid Analyzer (10/03/20 18:54) Medications Given in ED Current Medications Medications Dose Ordered Sig/Kurtis Route Start Time Stop Time Status Last Admin Dose Admin Albuterol/ Ipratropium 6 ml ONCE ONCE INH 10/03/20 16:30 10/03/20 16:31 DC 10/03/20 16:47 6 ML Ceftriaxone Sodium 1000 mg/ Sterile Water 10 ml @ 200 mls/hr ONCE ONCE IV 10/03/20 17:15 10/03/20 17:17 DC 10/03/20 17:35 200 MLS/HR Vital Signs/I&O 10/03/20 10/03/20 10/03/20 16:10 16:49 17:38 Temp 35.9 Pulse 98 Resp 20 B/P (MAP) Pulse Ox 96 95 O2 Delivery Nasal Cannula Nasal Cannula O2 Flow Rate 2.00 2.00 21.00 Capillary Refill : Less Than 3 Seconds Departure Communication (Admissions) Chest x-ray: No acute cardiopulmonary disease. Patient with advanced respiratory disease who has been untreated without oxygen or breathing treatments for the past 3 days. Patient given breathing treatment steroids and placed on BiPAP with significant improvement. O2 sats 98%. Will treat facial cellulitis urinary tract infection. IV antibiotics and IV fluids given. Will continue to treat as an outpatient with continued therapeutic and supportive care. Return precautions reviewed. Patient verbalizes understanding and agreement discharge instructions prior to departure] Impression Primary Impression: Acute exacerbation of chronic obstructive pulmonary disease (COPD) Additional Impressions: Facial cellulitis Urinary tract infection Disposition: 01 HOME, SELF-CARE Condition: Stable Departure-Patient Inst. Referrals: ANA HASSAN APRN (PCP/Family) Primary Care Physician EMILY DOMÍNGUEZ DO October 03, 2020 19:06
[2020-10-03] MEDS ORDERED: IPRA4AER IH (19:14)
[2020-10-03] MEDS ORDERED: AMOX-358 PO (19:14)
[2020-10-03] MEDS ORDERED: PRD20T PO (19:14)
[2020-10-03 19:23] VITALS: BP 135/112
== END 2020-10-03 19:23 | disposition home or self-care (01) ==
LOC: EDUNIT# 16:03 → ER FS 16:07
DX: J44.1 Chronic obstructive pulmonary disease with (acute) exacerbation (principal); L03.211 Cellulitis of face; N39.0 Urinary tract infection, site not specified; E66.9 Obesity, unspecified; I50.9 Heart failure, unspecified; F31.9 Bipolar disorder, unspecified; F20.9 Schizophrenia, unspecified; E11.9 Type 2 diabetes mellitus without complications; G89.29 Other chronic pain; M54.9 Dorsalgia, unspecified; F17.210 Nicotine dependence, cigarettes, uncomplicated; Z68.43 Body mass index [BMI] 50.0-59.9, adult; Z88.1 Allergy status to other antibiotic agents; Z99.81 Dependence on supplemental oxygen; Z88.8 Allergy status to other drugs, medicaments and biological substances; Z79.01 Long term (current) use of anticoagulants; Z79.899 Other long term (current) drug therapy; Z79.891 Long term (current) use of opiate analgesic
CPT/HCPCS: 36415; 51702; 71045; 80053; 81000; 82800; 82805; 83605; 83880; 84484; 85025; 85610; 85730; 87040; 87077; 87088; 87186; 94660

== ENCOUNTER 2020-10-04 14:50 | Emergency (ER) | payer MEDICAID ==
[2020-10-04 14:50] VITALS: BP 130/49
[~2020-10-04 14:50] MED LIST changes: +AMOX-358 PO
--- NOTE | 2020-10-04 14:55 | ED General ---
General Stated Complaint: ABN GLUCOSE History of Present Illness Date Seen by Provider: October 04, 2020 Time Seen by Provider: 14:55 Initial Comments 50-year-old female brought in by EMS. EMS was called because of a high glucose reading on her glucometer. When EMS arrived they reports her glucometer was very dirty they rechecked it her glucometer read in the mid 100s. She reports her is read in the 500s. Patient reports she still wanted to come to the ER to be seen. Patient was seen in the ER yesterday for what appears to be a COPD exacerbation. Patient has known COPD and is normally on 2 L of home oxygen the day and 5 L at night. Report from yesterday states that she had been off of her oxygen for about 3 days while out camping. When EMS arrived patient was out on her front porch smoking. Patient was also diagnosed with mild facial cellulitis versus sunburn yesterday. Allergies and Home Medications Allergies Coded Allergies: doxycycline (Unverified Allergy, Mild, nauseated, 08/01/09) spinach (Unverified Allergy, Mild, 08/01/09) alprazolam (Verified Allergy, Unknown, 07/18/19) diazepam (Verified Allergy, Unknown, 07/18/19) sumatriptan (Verified Allergy, Unknown, 07/18/19) Home Medications Albuterol Sulfate 1 Puff Puff, 2 PUFF INH Q4H PRN for COUGH, (Reported) Albuterol/Ipratropium 4 Gm Aero, 2 PUFF IH TID Prescribed by: EMILY DOMÍNGUEZ on 10/03/201913 Amoxicillin/Potassium Clav 1 Each Tablet, 1 EACH PO BID Prescribed by: EMILY DOMÍNGUEZ on 10/03/201913 Cefdinir 300 Mg Capsule, 300 MG PO BID Prescribed by: LEONOR CAMARGO on 03/29/20 1340 Furosemide 40 Mg Tablet, 40 MG PO BID, (Reported) Gabapentin 600 Mg Tablet, 1,200 MG PO TID, (Reported) TAKES 2 (600MG) TABS Glimepiride 2 Mg Tablet, 2 MG PO BID, (Reported) Haloperidol 10 Mg Tablet, 10 MG PO TID, (Reported) Hydrocodone/Acetaminophen 1 Each Tablet, 1 TAB PO Q6H PRN for PAIN-MODERATE (5- 7) Prescribed by: MAUREEN PARSONS on 08/18/20 1653 Lurasidone HCl 120 Mg Tablet, 120 MG PO 1800, (Reported) TAKES 120MG + 40MG TO EQUAL 160MG DAILY Lurasidone HCl 40 Mg Tablet, 40 MG PO 1800, (Reported) TAKES 120MG + 40MG TO EQUAL 160MG DAILY Montelukast Sodium 10 Mg Tablet, 10 MG PO DAILY, (Reported) Ondansetron 4 Mg Tab.rapdis, 4 MG PO Q6H PRN for NAUSEA/VOMITING Prescribed by: TASH ALARCON on 09/20/20 2318 Phenytoin Sodium Extended 200 Mg Capsule, 200 MG PO BID, (Reported) Prednisone 20 Mg Tab, 40 MG PO DAILY Prescribed by: EMILY DOMÍNGUEZ on 10/03/20 191 Quetiapine Fumarate 100 Mg Tablet, 300 MG PO DAILY, (Reported) TAKES 3 (100MG) TABS Rivaroxaban 20 Mg Tablet, 20 MG PO DAILY, (Reported) Topiramate 100 Mg Tablet, 200 MG PO BID, (Reported) TAKES 2 (100MG) TABS Trazodone HCl 100 Mg Tablet, 200 MG PO HS, (Reported) TAKES 2 (100MG) TABS Venlafaxine HCl 150 Mg Cap.er.24h, 300 MG PO DAILY, (Reported) TAKES 2 (150MG) CAPS Patient Home Medication List Home Medication List Reviewed: Yes Review of Systems Review of Systems Constitutional: see HPI; No chills, No fever Respiratory: short of breath (Chronic), wheezing Cardiovascular: No chest pain Gastrointestinal: No abdominal pain Skin: other (Facial redness and swelling) Past Vcqyefs-Yejrua-Ocnqas Hx Patient Social History Type Used: Cigarettes 2nd Hand Smoke Exposure: Yes Recent Hopitalizations: No Immunizations Up To Date Date of Pneumonia Vaccine: Dec 14, 2012 Date of Influenza Vaccine: Mar 04, 2013 Seasonal Allergies Seasonal Allergies: No Past Medical History Surgeries: Yes (HIP, suprapubic catheter, Dental) Appendectomy, Gallbladder, Hysterectomy, Orthopedic Respiratory: Yes Asthma, Pneumonia, Chronic Bronchitis, Pulmonary Embolism, COPD, Emphysema Cardiac: Yes (CHF) Neurological: Yes Neuropathy 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 Disorders: No 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 [employer]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 History: Hysterectomy Sexually Transmitted Disease: No HIV/AIDS: No Genitourinary: Yes Kidney Stones, Neurogenic Bladder, UTI-Chronic Gastrointestinal: Yes Abdominal Hernia, Gastroesophageal Reflux, Chronic Constipation, Irritable Bowel Musculoskeletal: Yes Arthritis, Fibromyalgia, Back Injury, Chronic Back Pain, Fractures, Spasms Endocrine: Yes Diabetes, Insulin dep, Hypothyroidsim HEENT: No Hearing Impairment: Hard of Hearing Cancer: Yes Ovarian Psychosocial: Yes ADD/ADHD, Bipolar, Schizophrenia Integumentary: No Blood Disorders: No Family Medical History No Pertinent Family Hx Physical Exam Vital Signs Vital Signs - First Documented 10/04/20 14:50 Temp 36.7 Pulse 99 Resp 20 B/P (MAP) 130/49 (76) Pulse Ox 93 O2 Delivery Room Air Capillary Refill : Height, Weight, BMI Height: '" Weight: 275lbs. oz. 124.883895dq; 53.00 BMI Method:Stated General Appearance: Obese (Morbid) HEENT: Other (Mild erythema to face) Respiratory: Decreased Breath Sounds (Mild likely based on body habitus), Wheezing (Mild diffuse) Cardiovascular: Regular Rate, Rhythm Gastrointestinal: Non Tender, Soft Extremity: Normal Capillary Refill, Normal Range of Motion Neurologic/Psychiatric: Oriented x3 Progress/Results/Core Measures Suspected Sepsis SIRS Temperature: Pulse: Respiratory Rate: Blood Pressure / Mean: Results/Orders My Orders Orders - AMBREEN LEGER DO Arterial Blood Gas (10/04/20 14:55) Accucheck Stat ONCE (10/04/20 14:55) Naloxone Injection (Narcan Injection) (10/04/20 15:00) Albuterol/Ipra Inhalation Soln (Duoneb I (10/04/20 15:00) Svn Small Volume Nebulizer (10/04/20 14:55) Vital Signs/I&O 10/04/20 14:50 Temp 36.7 Pulse 99 Resp 20 B/P (MAP) 130/49 (76) Pulse Ox 93 O2 Delivery Room Air Capillary Refill : Departure Impression Primary Impression: Hyperglycemia Disposition: 07 AGAINST MEDICAL ADVICE Condition: Against Medical Advice Departure-Patient Inst. Referrals: ANA HASSAN MANAGER OF MERCHANDISING (PCP/Family) Primary Care Physician AMBREEN LEGER DO October 04, 2020 14:55
[2020-10-04] MEDS ORDERED: RT-ALBUTEROL/IPRATROPIUM 3 ML (DUONEB) VIAL INH ONE (15:00)
[2020-10-04] MEDS ORDERED: NALOXONE 2 MG/2 ML (NARCAN) SYR IV ONE (15:00)
== END 2020-10-04 15:05 | disposition left against medical advice (07) ==
LOC: EDUNIT# 14:50 → ER FS 14:51
DX: E11.65 Type 2 diabetes mellitus with hyperglycemia (principal); E66.01 Morbid (severe) obesity due to excess calories; F31.9 Bipolar disorder, unspecified; J44.9 Chronic obstructive pulmonary disease, unspecified; I50.9 Heart failure, unspecified; F20.9 Schizophrenia, unspecified; G89.29 Other chronic pain; M54.9 Dorsalgia, unspecified; Z88.1 Allergy status to other antibiotic agents; Z88.8 Allergy status to other drugs, medicaments and biological substances; Z77.22 Contact with and (suspected) exposure to environmental tobacco smoke (acute) (chronic); Z68.43 Body mass index [BMI] 50.0-59.9, adult; Z79.52 Long term (current) use of systemic steroids; Z79.01 Long term (current) use of anticoagulants; Z79.891 Long term (current) use of opiate analgesic; Z79.899 Other long term (current) drug therapy
CPT/HCPCS: 99283

== ENCOUNTER → 2020-10-19 | Outpatient (CLI) | payer MEDICAID ==
--- NOTE | 2020-10-19 16:36 | Diagnostic Imaging Report ---
INDICATION: Right wrist pain. Two views of the right wrist are obtained and compared with the exam done on 09/28/2020. There is a comminuted fracture of the distal radius at the level of the metaphysis with anterior angulation of the distal component. There is an associated ulnar styloid fracture. There is some callus forming at the fracture lines. IMPRESSION: Healing fracture of the distal radius and ulna in stable alignment. Dictated by: Dictated on workstation # [id number]
== END ==
LOC: RAD FS 13:48
PROVIDERS: ATTEND Nurse Practitioner
DX: S52.541D Smith's fracture of right radius, subsequent encounter for closed fracture with routine healing (principal); S52.611D Displaced fracture of right ulna styloid process, subsequent encounter for closed fracture with routine healing; X58.XXXD Exposure to other specified factors, subsequent encounter
CPT/HCPCS: 73100

== ENCOUNTER 2020-10-27 02:12 | Emergency (ER) | payer MEDICAID ==
[~2020-10-27] VITALS: Ht 157.4 cm; Wt 212.0 kg
[2020-10-27 02:14] VITALS: BP 145/98
[2020-10-27] MEDS ORDERED: HYDROcodone/APAP 5 MG/325 MG (LORTAB) TAB PO ONE (02:30)
--- NOTE | 2020-10-27 02:34 | ED General ---
General Chief Complaint: Hip/Pelvic Problems Stated Complaint: LT HIP PAIN Nursing Triage Note: Patient was brought in via EMS for left hip pain. Patient had fallen from a standing position because her knees buckled. Patient also complains of left knee pain. Nursing Sepsis Screen: No Definite Risk History of Present Illness Date Seen by Provider: October 27, 2020 Time Seen by Provider: 02:29 Initial Comments Patient presenting to the emergency department for evaluation of left hip and knee pain status post fall. She says she stood up to go the bathroom and felt slightly lightheaded and felt her knees buckle and she fell towards her left side. She says she landed on her left hip and knee. EMS reports that she was ambulatory on the scene. She says she no longer feels a lightheaded sensation but she does sometimes feel lightheaded when she goes from a lying to standing position too fast. She denies any head neck chest abdomen back or other extremity pain or trauma denies any unilateral weakness numbness or tingling. She is on Xarelto so I did not confirm with her again that she did not hit her head and she confirmed she has no head pain or trauma and that she had no loss of consciousness and that this with only slight lightheaded sensation. She denies confusion vision changes or any recent illness or other complaints. She does appear to have frequent emergency room visits since August this will be her ninth emergency room visit. She is in no obvious distress with normal vital signs except for mild hypertension noted. She is on her home oxygen at 3 L with an oxygen saturation of 98%. Allergies and Home Medications Allergies Coded Allergies: doxycycline (Unverified Allergy, Mild, nauseated, 08/01/09) spinach (Unverified Allergy, Mild, 08/01/09) alprazolam (Verified Allergy, Unknown, 07/18/19) diazepam (Verified Allergy, Unknown, 07/18/19) sumatriptan (Verified Allergy, Unknown, 07/18/19) Home Medications Albuterol Sulfate 1 Puff Puff, 2 PUFF INH Q4H PRN for COUGH, (Reported) Albuterol/Ipratropium 4 Gm Aero, 2 PUFF IH TID Prescribed by: EMILY DOMÍNGUEZ on 10/03/201913 Amoxicillin/Potassium Clav 1 Each Tablet, 1 EACH PO BID Prescribed by: EMILY DOMÍNGUEZ on 10/03/201913 Cefdinir 300 Mg Capsule, 300 MG PO BID Prescribed by: ELONOR CAMARGO on 03/29/20 1340 Furosemide 40 Mg Tablet, 40 MG PO BID, (Reported) Gabapentin 600 Mg Tablet, 1,200 MG PO TID, (Reported) TAKES 2 (600MG) TABS Glimepiride 2 Mg Tablet, 2 MG PO BID, (Reported) Haloperidol 10 Mg Tablet, 10 MG PO TID, (Reported) Hydrocodone/Acetaminophen 1 Each Tablet, 1 TAB PO Q6H PRN for PAIN-MODERATE (5- 7) Prescribed by: MAUREEN PARSONS on 08/18/20 1653 Lurasidone HCl 120 Mg Tablet, 120 MG PO 1800, (Reported) TAKES 120MG + 40MG TO EQUAL 160MG DAILY Lurasidone HCl 40 Mg Tablet, 40 MG PO 1800, (Reported) TAKES 120MG + 40MG TO EQUAL 160MG DAILY Montelukast Sodium 10 Mg Tablet, 10 MG PO DAILY, (Reported) Ondansetron 4 Mg Tab.rapdis, 4 MG PO Q6H PRN for NAUSEA/VOMITING Prescribed by: TASH ALARCON on 09/20/20 2318 Phenytoin Sodium Extended 200 Mg Capsule, 200 MG PO BID, (Reported) Prednisone 20 Mg Tab, 40 MG PO DAILY Prescribed by: EMILY DOMÍNGUEZ on 10/03/201913 Quetiapine Fumarate 100 Mg Tablet, 300 MG PO DAILY, (Reported) TAKES 3 (100MG) TABS Rivaroxaban 20 Mg Tablet, 20 MG PO DAILY, (Reported) Topiramate 100 Mg Tablet, 200 MG PO BID, (Reported) TAKES 2 (100MG) TABS Trazodone HCl 100 Mg Tablet, 200 MG PO HS, (Reported) TAKES 2 (100MG) TABS Venlafaxine HCl 150 Mg Cap.er.24h, 300 MG PO DAILY, (Reported) TAKES 2 (150MG) CAPS Patient Home Medication List Home Medication List Reviewed: Yes Review of Systems Review of Systems Constitutional: no symptoms reported EENTM: no symptoms reported Respiratory: no symptoms reported Cardiovascular: no symptoms reported Gastrointestinal: no symptoms reported Musculoskeletal: joint pain Skin: no symptoms reported Psychiatric/Neurological: No Symptoms Reported All Other Systems Reviewed Negative Unless Noted: Yes Past Fmxxgfi-Ossvah-Yeclcc Hx Patient Social History Alcohol Use: Denies Use Smoking Status: Current Everyday Smoker Type Used: Cigarettes 2nd Hand Smoke Exposure: Yes Recent Infectious Disease Expo: No Recent Hopitalizations: No Immunizations Up To Date Date of Pneumonia Vaccine: Dec 14, 2012 Date of Influenza Vaccine: Mar 04, 2013 Seasonal Allergies Seasonal Allergies: No Past Medical History Surgeries: Yes (HIP, suprapubic catheter, Dental) Appendectomy, Gallbladder, Hysterectomy, Orthopedic Respiratory: Yes Asthma, Pneumonia, Chronic Bronchitis, Pulmonary Embolism, COPD, Emphysema Cardiac: Yes (CHF) Neurological: Yes Neuropathy 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 Disorders: No 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[employer]S [employer]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 History: Hysterectomy Sexually Transmitted Disease: No HIV/AIDS: No Genitourinary: Yes Kidney Stones, Neurogenic Bladder, UTI-Chronic Gastrointestinal: Yes Abdominal Hernia, Gastroesophageal Reflux, Chronic Constipation, Irritable Bowel Musculoskeletal: Yes Arthritis, Fibromyalgia, Back Injury, Chronic Back Pain, Fractures, Spasms Endocrine: Yes Diabetes, Insulin dep, Hypothyroidsim HEENT: No Hearing Impairment: Hard of Hearing Cancer: Yes Ovarian Psychosocial: Yes ADD/ADHD, Bipolar, Schizophrenia Integumentary: No Blood Disorders: No Family Medical History No Pertinent Family Hx Physical Exam Vital Signs Vital Signs - First Documented 10/27/20 02:14 Temp 37.0 Pulse 96 Resp 20 B/P (MAP) 145/98 (114) Pulse Ox 98 O2 Delivery Nasal Cannula O2 Flow Rate 3.00 Capillary Refill : Less Than 3 Seconds Height, Weight, BMI Height: '" Weight: 275lbs. oz. 124.690395gb; 85.00 BMI Method:Stated General Appearance: No Apparent Distress, Obese HEENT: PERRL/EOMI Neck: Non Tender, Supple Respiratory: Chest Non Tender, No Respiratory Distress Cardiovascular: Regular Rate, Rhythm Gastrointestinal: Non Tender, Soft Back: Normal Inspection, No Vertebral Tenderness Extremity: Normal Capillary Refill, Other (Pain to palpation with left posterior hip but she does have intact range of motion actively and passively as well as pain to palpation of left knee anteriorly but intact range of motion actively and passively) Neurologic/Psychiatric: Alert, Oriented x3, No Motor/Sensory Deficits Skin: Warm/Dry Progress/Results/Core Measures Suspected Sepsis Recent Fever Within 48 Hours: No Infection Criteria Present: None New/Unexplained Altered Menta: No Sepsis Screen: No Definite Risk SIRS Temperature: Pulse: 96 Respiratory Rate: 20 Blood Pressure 145 /98 Mean: 114 Results/Orders My Orders Orders - DENNISE COLLIER DO Hip 2-3 View Left (10/27/20 02:25) Knee 3 View Left (10/27/20 02:25) Hydrocodone/Apap 5/325 Tablet (Lortab 5 (10/27/20 02:30) Medications Given in ED Current Medications Medications Dose Ordered Sig/Kurtis Route Start Time Stop Time Status Last Admin Dose Admin Acetaminophen/ Hydrocodone Bitart 2 ea ONCE ONCE PO 10/27/20 02:30 10/27/20 02:31 DC 10/27/20 02:30 2 EA Vital Signs/I&O 10/27/20 02:14 Temp 37.0 Pulse 96 Resp 20 B/P (MAP) 145/98 (114) Pulse Ox 98 O2 Delivery Nasal Cannula O2 Flow Rate 3.00 Capillary Refill : Less Than 3 Seconds Blood Pressure Mean: 114 Progress Note : Progress Note I will get x-rays of her left knee and hip treat her pain and reassess. She did have slight lightheadedness with position change consistent with orthostasis but no concerning cardiac or neurologic symptoms on history or physical exam necessitating further work-up. Departure Impression Primary Impression: Left knee pain Qualified Codes: M25.562 - Pain in left knee Additional Impression: Left hip pain Disposition: 01 HOME, SELF-CARE Condition: Stable Departure-Patient Inst. Referrals: ANA HASSAN APRN (PCP/Family) Primary Care Physician Patient Instructions: Contusion (ELIZABETH) DENNISE COLLIER DO October 27, 2020 02:34
--- NOTE | 2020-10-27 06:23 | Diagnostic Imaging Report ---
INDICATION: Left knee pain after fall. COMPARISON: Left hip radiographs of 10/27/2020. TECHNIQUE: 3 views of left knee are obtained. FINDINGS: No acute fracture or traumatic malalignment. Mild degenerative changes within all 3 compartments. No knee joint effusion. Distal aspect of the intramedullary nail seen within the femur with an old healed fracture of the distal femoral diaphysis. IMPRESSION: 1. No acute osseous abnormality about the left knee. 2. Tricompartmental osteoarthritis. Dictated by: Dictated on workstation # [id number]
--- NOTE | 2020-10-27 06:24 | Diagnostic Imaging Report ---
INDICATION: Left hip pain after fall. COMPARISON: Knee radiograph performed concurrently. TECHNIQUE: AP and frog-leg lateral views of left hip. FINDINGS: Status post intramedullary nail fixation of old healed distal femoral fracture, seen on the knee radiograph performed concurrently. No acute fracture. Heterotopic ossification is present at the cranial aspect of the greater trochanter. No appreciable degenerative changes within the left hip. IMPRESSION: No acute osseous abnormality. Dictated by: Dictated on workstation # [id number]
== END 2020-10-27 03:02 | disposition home or self-care (01) ==
LOC: EDUNIT# 02:12 → ER FS 02:13
DX: M25.562 Pain in left knee (principal); M25.552 Pain in left hip; R42 Dizziness and giddiness; E11.40 Type 2 diabetes mellitus with diabetic neuropathy, unspecified; J43.9 Emphysema, unspecified; F20.9 Schizophrenia, unspecified; F31.9 Bipolar disorder, unspecified; M79.7 Fibromyalgia; G89.29 Other chronic pain; M54.9 Dorsalgia, unspecified; E66.9 Obesity, unspecified; F17.210 Nicotine dependence, cigarettes, uncomplicated; Z68.45 Body mass index [BMI] 70 or greater, adult; Z79.84 Long term (current) use of oral hypoglycemic drugs; Z79.899 Other long term (current) drug therapy; Z79.891 Long term (current) use of opiate analgesic; Z79.52 Long term (current) use of systemic steroids; W18.39XA Other fall on same level, initial encounter
CPT/HCPCS: 73502; 73562

== ENCOUNTER 2020-11-07 21:50 | Emergency (ER) | payer MEDICAID ==
[2020-11-07] MEDS ORDERED: ORPHENADRINE 60 MG/2 ML (NORFLEX) AMP (ED ONLY) IM STA (22:09)
[2020-11-07] MEDS ORDERED: KETOROLAC 60 MG/2 ML VIAL IM STA (22:09)
--- NOTE | 2020-11-07 22:17 | ED Fall/Injury ---
General Chief Complaint: Back Problems Stated Complaint: BACK PAIN Source: patient, EMS, old records History of Present Illness Date Seen by Provider: Nov 07, 2020 Time Seen by Provider: 21:50 Initial Comments 50-year-old female presenting by EMS from home. She has acute on chronic pain in her right hip and lumbar spine after falling out of his truck on November 06. She states she was reaching for the door handle to close the door and fell out of the truck when she lost her balance. She twisted and landed more on her back when she fell out. She has pain primarily in her right hip and lumbar spine area. She has chronic pain in this area but it is worse since the fall. She has no radiation into her leg. She has no bruising in this area. She did not hit her head or lose consciousness. She usually takes hydrocodone every 6 hours for pain but is out and has to call tomorrow to follow-up and get a refill of medication. She denies any loss of bowel or bladder control. She felt the pain was worse tonight so she called EMS to have her transported to the ER. 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 truck) Loss of Consciousness: no loss of consciousness Modifying Factors: Worse With Movement Associated Symptoms (Fall): No Abdominal Pain, No Chest Pain, No Confusion, No Dizziness, No Headache, No Lightheadedness; Muscle Spasms; No Nausea/Vomiting, No Neck Pain, No Ringing in Ears, No Seizures; Shortness of Air (chronic and no worse than usual), Trouble Walking (increased with pain); No Vision Changes Allergies and Home Medications Allergies Coded Allergies: doxycycline (Unverified Allergy, Mild, nauseated, 08/01/09) spinach (Unverified Allergy, Mild, 08/01/09) alprazolam (Verified Allergy, Unknown, 07/18/19) diazepam (Verified Allergy, Unknown, 07/18/19) sumatriptan (Verified Allergy, Unknown, 07/18/19) Home Medications Albuterol Sulfate 1 Puff Puff, 2 PUFF INH Q4H PRN for COUGH, (Reported) Albuterol/Ipratropium 4 Gm Aero, 2 PUFF IH TID Prescribed by: EMILY DOMÍNGUEZ on 10/03/201913 Amoxicillin/Potassium Clav 1 Each Tablet, 1 EACH PO BID Prescribed by: EMILY DOMÍNGUEZ on 10/03/201913 Cefdinir 300 Mg Capsule, 300 MG PO BID Prescribed by: LEONOR CAMARGO on 03/29/20 1340 Furosemide 40 Mg Tablet, 40 MG PO BID, (Reported) Gabapentin 600 Mg Tablet, 1,200 MG PO TID, (Reported) TAKES 2 (600MG) TABS Glimepiride 2 Mg Tablet, 2 MG PO BID, (Reported) Haloperidol 10 Mg Tablet, 10 MG PO TID, (Reported) Hydrocodone/Acetaminophen 1 Each Tablet, 1 TAB PO Q6H PRN for PAIN-MODERATE (5- 7) Prescribed by: MAUREEN PARSONS on 08/18/20 1653 Lurasidone HCl 120 Mg Tablet, 120 MG PO 1800, (Reported) TAKES 120MG + 40MG TO EQUAL 160MG DAILY Lurasidone HCl 40 Mg Tablet, 40 MG PO 1800, (Reported) TAKES 120MG + 40MG TO EQUAL 160MG DAILY Montelukast Sodium 10 Mg Tablet, 10 MG PO DAILY, (Reported) Ondansetron 4 Mg Tab.rapdis, 4 MG PO Q6H PRN for NAUSEA/VOMITING Prescribed by: TASH ALARCON on 09/20/20 2318 Phenytoin Sodium Extended 200 Mg Capsule, 200 MG PO BID, (Reported) Prednisone 20 Mg Tab, 40 MG PO DAILY Prescribed by: EMILY DOMÍNGUEZ on 10/03/201913 Quetiapine Fumarate 100 Mg Tablet, 300 MG PO DAILY, (Reported) TAKES 3 (100MG) TABS Rivaroxaban 20 Mg Tablet, 20 MG PO DAILY, (Reported) Topiramate 100 Mg Tablet, 200 MG PO BID, (Reported) TAKES 2 (100MG) TABS Trazodone HCl 100 Mg Tablet, 200 MG PO HS, (Reported) TAKES 2 (100MG) TABS Venlafaxine HCl 150 Mg Cap.er.24h, 300 MG PO DAILY, (Reported) TAKES 2 (150MG) CAPS Patient Home Medication List Home Medication List Reviewed: Yes Review of Systems Review of Systems Constitutional: No chills, No fever Eyes: No Symptoms Reported Ears, Nose, Mouth, Throat: no symptoms reported Respiratory: see HPI Cardiovascular: no symptoms reported Gastrointestinal: no symptoms reported Genitourinary: no symptoms reported Musculoskeletal: see HPI Skin: No change in color (no bruising or redness in back or hip area) Psychiatric/Neurological: Anxiety Past Pbghudx-Tishhs-Snjmks Hx Past Med/Social Hx: Reviewed Nursing Past Med/Soc Hx Patient Social History Alcohol Use: Denies Use Type Used: Cigarettes 2nd Hand Smoke Exposure: Yes Recent Hopitalizations: No Immunizations Up To Date Date of Pneumonia Vaccine: Dec 14, 2012 Date of Influenza Vaccine: Mar 04, 2013 Seasonal Allergies Seasonal Allergies: No Past Medical History Surgeries: Yes (HIP, suprapubic catheter, Dental) Appendectomy, Gallbladder, Hysterectomy, Orthopedic Respiratory: Yes Asthma, Pneumonia, Chronic Bronchitis, Pulmonary Embolism, COPD, Emphysema Cardiac: Yes (CHF) Neurological: Yes Neuropathy 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 Disorders: No 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 Sexually Transmitted Disease: No HIV/AIDS: No Genitourinary: Yes Kidney Stones, Neurogenic Bladder, UTI-Chronic Gastrointestinal: Yes Abdominal Hernia, Gastroesophageal Reflux, Chronic Constipation, Irritable Bowel Musculoskeletal: Yes Arthritis, Fibromyalgia, Back Injury, Chronic Back Pain, Fractures, Spasms Endocrine: Yes Diabetes, Insulin dep, Hypothyroidsim HEENT: No Hearing Impairment: Hard of Hearing Cancer: Yes Ovarian Psychosocial: Yes ADD/ADHD, Bipolar, Schizophrenia Integumentary: No Blood Disorders: No Family Medical History No Pertinent Family Hx Physical Exam Vital Signs Vital Signs - First Documented 11/07/20 22:02 Temp 36.5 Pulse 100 Resp 20 B/P (MAP) 157/88 (111) Pulse Ox 94 O2 Delivery Room Air Capillary Refill : Height, Weight, BMI Height: '" Weight: 275lbs. oz. 124.151711du; 85.00 BMI Method:Stated General Appearance: obese HEENT: pharynx normal Cardiovascular: normal peripheral pulses, regular rate, rhythm Respiratory: chest non-tender, no respiratory distress, no accessory muscle use, wheezing Gastrointestinal: normal bowel sounds, non tender, soft, no pulsatile mass Back: no vertebral tenderness, muscle spasm (right low lumbar spine and into right posterior hip) Extremities: normal range of motion, no calf tenderness, normal capillary refill, pelvis stable Neurologic/Psychiatric: head of loss prevention II-XII nml as tested, alert, oriented x 3 Skin: warm/dry; No ecchymosis Dinesh Coma Score Best Eye Response: (4) Open Spontaneously Best Verbal Response: (5) Oriented Best Motor Response: (6) Obeys Commands Dinesh Total: 15 Progress/Results/Core Measures Results/Orders My Orders Orders - TASH ALARCON MD Ketorolac Injection (Toradol Injection) (11/07/20 22:09) Orphenadrine Inj (Ed Only) (Norflex Inje (11/07/20 22:09) Ct Lumbar Spine Wo (11/07/20 22:09) Ct Pelvis Wo (11/07/20 22:09) Rx-Hydrocodone/Apap 5-325 Mg (Rx-Vicodin (11/07/20 23:15) Vital Signs/I&O 11/07/20 11/07/20 22:02 23:29 Temp 36.5 36.5 Pulse 100 100 Resp 20 20 B/P (MAP) 157/88 (111) 157/88 (111) Pulse Ox 94 94 O2 Delivery Room Air Room Air Progress Progress Note #1: Progress Note order toradol and norflex for pain and muscle spasms. CT lumbar spine and pelvis to check for fracture or acute injury. She has acute on chronic pain so likely flared up her chronic hip pain but will check for acute bony injury. Progress Note #2: Progress Note CT scans do not show any acute fracture or dislocation. Give Hydrocodone 4 pack and advised to call clinic in am for follow up and continued pain control. Diagnostic Imaging Diagonstic Imaging: CT Plain Films/CT/US/NM/MRI: pelvis (and lumbar spine) Comments No acute fracture in pelvis. No acute findings in the lumbar spine. Read by radiologist Dr. Emily Boyer MD at [phone] and faxed at [phone] Reviewed: Reviewed by Me Departure Impression Primary Impression: Acute exacerbation of chronic low back pain Additional Impressions: Chronic pain of right hip Fall from stationary vehicle Qualified Codes: W17.89XA - Other fall from one level to another, initial encounter Disposition: 01 HOME, SELF-CARE Condition: Stable Departure-Patient Inst. Decision time for Depature: 23:13 Referrals: ANA HASSAN APRN (PCP/Family) Primary Care Physician Patient Instructions: Hip Pain, Muscle and Bone Pain (DC) Add. Discharge Instructions: No fractures or dislocations seen on CT scans tonight. Follow up with CONSTANTIN Gonsalez for continued pain control and management. All discharge instructions reviewed with patient and/or family. Voiced understanding. TASH ALARCON MD Nov 07, 2020 22:17
[2020-11-07 23:29] VITALS: BP 157/88
--- NOTE | 2020-11-08 07:16 | Diagnostic Imaging Report ---
PROCEDURE: CT lumbar spine without contrast. TECHNIQUE: Multiple contiguous axial images were obtained through the lumbar spine without the use of intravenous contrast. Sagittal and coronal reformations were then performed. Auto Exposure Controls were utilized during the CT exam to meet ALARA standards for radiation dose reduction. INDICATION: Fall from truck. Acute on chronic low back pain. COMPARISON: CT lumbar spine without contrast 02/29/2020. FINDINGS: There are 5 lumbar-type vertebral bodies. Normal alignment. Vertebral body heights preserved. No fractures. The visualized pelvis is intact. No high-grade spinal canal stenosis is evident on soft tissue windows. There are only mild spondylotic changes in the lumbar spine. Moderate atherosclerotic calcifications. Cholecystectomy. IVC filter. IMPRESSION: No acute CT findings in the lumbar spine. Agree with preliminary interpretation. Dictated by: Dictated on workstation # [id number]
--- NOTE | 2020-11-08 07:19 | Diagnostic Imaging Report ---
PROCEDURE: CT pelvis without contrast. TECHNIQUE: Multiple contiguous axial images were obtained through the pelvis without the use of intravenous contrast. Sagittal and coronal reformations were performed. Auto Exposure Controls were utilized during the CT exam to meet ALARA standards for radiation dose reduction. INDICATION: Fall from truck. Right hip pain. COMPARISON: Right hip radiographs 10/27/2020. FINDINGS: Bilateral femoral intramedullary rods are partially visualized. No fractures within the pelvis or bilateral proximal femurs. Hysterectomy. The visualized pelvic contents are otherwise unremarkable. No soft tissue hematoma/contusions within the [id number]. IMPRESSION: No acute CT findings in the pelvis. Agree with preliminary interpretation. Dictated by: Dictated on workstation # [id number]
== END 2020-11-07 23:29 | disposition home or self-care (01) ==
LOC: EDUNIT# 21:50 → ER FS 22:02
DX: G89.29 Other chronic pain (principal); M54.5 Low back pain; M25.551 Pain in right hip; E66.9 Obesity, unspecified; Z68.45 Body mass index [BMI] 70 or greater, adult; J44.9 Chronic obstructive pulmonary disease, unspecified; I50.9 Heart failure, unspecified; F31.9 Bipolar disorder, unspecified; F20.9 Schizophrenia, unspecified; E11.9 Type 2 diabetes mellitus without complications; Z88.1 Allergy status to other antibiotic agents; Z88.8 Allergy status to other drugs, medicaments and biological substances; Z86.711 Personal history of pulmonary embolism; Z77.22 Contact with and (suspected) exposure to environmental tobacco smoke (acute) (chronic); Z79.01 Long term (current) use of anticoagulants; Z79.52 Long term (current) use of systemic steroids; Z79.899 Other long term (current) drug therapy
CPT/HCPCS: 72131; 72192

== ENCOUNTER → 2020-11-15 | Outpatient (CLI) | payer MEDICAID ==
--- NOTE | 2020-11-15 16:04 | Diagnostic Imaging Report ---
INDICATION: Right wrist fracture follow-up AP and lateral views of the right wrist show an impacted fracture of the distal radius with anterior angulation of the distal component. There is evidence of healing with bridging callus anteriorly. There is associated ulnar styloid fracture. IMPRESSION: Stable alignment of the distal radius fracture with interval healing characterized by bone callus since comparison exam done on 10/19/2020. Dictated by: Dictated on workstation # [id number]
== END ==
LOC: RAD FS 15:32
PROVIDERS: ATTEND Nurse Practitioner
DX: S52.541D Smith's fracture of right radius, subsequent encounter for closed fracture with routine healing (principal); S52.611D Displaced fracture of right ulna styloid process, subsequent encounter for closed fracture with routine healing; X58.XXXD Exposure to other specified factors, subsequent encounter
CPT/HCPCS: 73100

== ENCOUNTER 2020-12-01 21:40 | Emergency (ER) | payer MEDICAID ==
[2020-12-01] MEDS ORDERED: KETOROLAC 30 MG/ML VIAL IM ONE (22:00)
[2020-12-01] MEDS ORDERED: fentaNYL INJ 100 MCG/2 ML AMP IM ONE (22:00)
[2020-12-01] MEDS ORDERED: ONDANSETRON 4 MG (ZOFRAN) ORAL DISSOLVE TAB PO STA (22:03)
--- NOTE | 2020-12-01 22:03 | ED Upper Extremity ---
General Chief Complaint: Upper Extremity Stated Complaint: FELL, RT SHOULDER PAIN Source: patient History of Present Illness Date Seen by Provider: Dec 01, 2020 Time Seen by Provider: 21:43 Initial Comments 50 yo female prestenting with pain to right shoulder. She is living at [facility] now and at lunch time she choked and had a coughing fit resulting in her fainting and falling from her wheelchair onto her right shoulder. She has had pain since then and took tylenol for it. She felt the pain was too severe tonight so she had her drive her here to the ED. She has pain limiting movement and use of right arm and hand. She recently had wrist fracture on that side but had cast removed earlier this month. Location Injury Occurred: [facility] Onset: this afternoon Severity: severe Pain/Injury Location: right shoulder Method of Injury: fell (from wheelchair) Modifying Factors: Worse With Movement Allergies and Home Medications Allergies Coded Allergies: doxycycline (Unverified Allergy, Mild, nauseated, 08/01/09) spinach (Unverified Allergy, Mild, 08/01/09) alprazolam (Verified Allergy, Unknown, 07/18/19) diazepam (Verified Allergy, Unknown, 07/18/19) sumatriptan (Verified Allergy, Unknown, 07/18/19) Home Medications Albuterol Sulfate 1 Puff Puff, 2 PUFF INH Q4H PRN for COUGH, (Reported) Albuterol/Ipratropium 4 Gm Aero, 2 PUFF IH TID Prescribed by: EMILY DOMÍNGUEZ on 10/03/201913 Amoxicillin/Potassium Clav 1 Each Tablet, 1 EACH PO BID Prescribed by: EMILY DOMÍNGUEZ on 10/03/201913 Cefdinir 300 Mg Capsule, 300 MG PO BID Prescribed by: LEONOR CAMARGO on 03/29/20 1340 Furosemide 40 Mg Tablet, 40 MG PO BID, (Reported) Gabapentin 600 Mg Tablet, 1,200 MG PO TID, (Reported) TAKES 2 (600MG) TABS Glimepiride 2 Mg Tablet, 2 MG PO BID, (Reported) Haloperidol 10 Mg Tablet, 10 MG PO TID, (Reported) Hydrocodone/Acetaminophen 1 Each Tablet, 1 TAB PO Q6H PRN for PAIN-MODERATE (5-7) Prescribed by: MAUREEN PARSONS on 08/18/20 1653 Hydrocodone/Acetaminophen 1 Each Tablet, 1 TAB PO Q8H PRN for PAIN-SEVERE (8-10) Prescribed by: TASH ALARCON on 12/01/20 2309 Lurasidone HCl 120 Mg Tablet, 120 MG PO 1800, (Reported) TAKES 120MG + 40MG TO EQUAL 160MG DAILY Lurasidone HCl 40 Mg Tablet, 40 MG PO 1800, (Reported) TAKES 120MG + 40MG TO EQUAL 160MG DAILY Montelukast Sodium 10 Mg Tablet, 10 MG PO DAILY, (Reported) Ondansetron 4 Mg Tab.rapdis, 4 MG PO Q6H PRN for NAUSEA/VOMITING Prescribed by: TASH ALARCON on 09/20/20 2318 Phenytoin Sodium Extended 200 Mg Capsule, 200 MG PO BID, (Reported) Prednisone 20 Mg Tab, 40 MG PO DAILY Prescribed by: EMILY DOMÍNGUEZ on 10/03/20 191 Quetiapine Fumarate 100 Mg Tablet, 300 MG PO DAILY, (Reported) TAKES 3 (100MG) TABS Rivaroxaban 20 Mg Tablet, 20 MG PO DAILY, (Reported) Topiramate 100 Mg Tablet, 200 MG PO BID, (Reported) TAKES 2 (100MG) TABS Trazodone HCl 100 Mg Tablet, 200 MG PO HS, (Reported) TAKES 2 (100MG) TABS Venlafaxine HCl 150 Mg Cap.er.24h, 300 MG PO DAILY, (Reported) TAKES 2 (150MG) CAPS Patient Home Medication List Home Medication List Reviewed: Yes Review of Systems Constitutional: No chills, No fever EENTM: no symptoms reported Respiratory: cough (chronic), short of breath (chronic) Cardiovascular: no symptoms reported Gastrointestinal: no symptoms reported Genitourinary: no symptoms reported Musculoskeletal: see HPI Skin: No change in color Psychiatric/Neurological: Anxiety Past Ouigttb-Xnxoxb-Cpjbpk Hx Seasonal Allergies Seasonal Allergies: No Past Medical History Surgeries: Yes (HIP, suprapubic catheter, Dental) Appendectomy, Gallbladder, Hysterectomy, Orthopedic Respiratory: Yes Asthma, Pneumonia, Chronic Bronchitis, Pulmonary Embolism, COPD, Emphysema Cardiac: Yes (CHF) Neurological: Yes Neuropathy 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 Disorders: No 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 Sexually Transmitted Disease: No HIV/AIDS: No Genitourinary: Yes Kidney Stones, Neurogenic Bladder, UTI-Chronic Gastrointestinal: Yes Abdominal Hernia, Gastroesophageal Reflux, Chronic Constipation, Irritable Bowel Musculoskeletal: Yes Arthritis, Fibromyalgia, Back Injury, Chronic Back Pain, Fractures, Spasms Endocrine: Yes Diabetes, Insulin dep, Hypothyroidsim HEENT: No Hearing Impairment: Hard of Hearing Cancer: Yes Ovarian Psychosocial: Yes ADD/ADHD, Bipolar, Schizophrenia Integumentary: No Blood Disorders: No Family Medical History No Pertinent Family Hx Physical Exam Vital Signs Vital Signs - First Documented 12/01/20 21:50 Temp 36.7 Pulse 89 Resp 14 B/P (MAP) 156/110 (125) Pulse Ox 96 O2 Delivery Room Air Capillary Refill : Height, Weight, BMI Height: '" Weight: 275lbs. oz. 124.916515ts; 85.00 BMI Method:Stated General Appearance: moderate distress, obese HEENT: PERRL/EOMI Neck: non-tender, supple, normal inspection Cardiovascular: normal peripheral pulses, regular rate, rhythm Respiratory: no respiratory distress, no accessory muscle use, wheezing, expiration, inspiration, other (pain to palpation over the anterior right shoulder and chest wall) Shoulder: bone tenderness, limited ROM (due to pain in right shoulder), pain Neurologic/Tendon: normal sensation Neurologic/Psychiatric: alert, oriented x 3 Skin: normal color, warm/dry Procedures/Interventions Procedure: right shoulder dislocation closed reduction Patient Education: Explained Benefits, Explained Risks, Pt. Ack. Understanding Agreement on procedure with pt: Yes Patient History: Heavy Snoring, Sleep Apnea Breath Sounds per Auscultation: Wheezes Heart Sounds per Auscultation: Regular Airway Exam: Mouth opens >2 fingers, Neck Full Range of Motion After obtaining consent from the patient she wanted to speak with her significant other prior to procedure. She was given Fentanyl to help with pain and then dosed with Midazolam 2 mg to help with analgesia and amnesia as well as relaxing muscles of her shoulder. With minimal movement of her shoulder and arm she had normal range of motion and a post reduction xray was obtained. The post reduction film showed improved position of the shoulder joint. Shoulder immobilizer would not fit so placed in sling instead. Counseled to follow up with orthopedics. This may be more laxity of the rotator cuff and shoulder joint than a true dislocation as she has prior imaging of the shoulder that looks similar to tonight. She might need MRI or further evaluation of the shoulder if conotinued pain and problems. She was neurovascularly intact both pre and post procedure. Allowed to wake up from the Fentanyl and Midazolam dosing. She has chronic STEFANIA and COPD and CO2 retention. Re-examination Time: 23:52 Re-examination Pain improved and in sling. Neurovascularly intact. Awakens to voice and holds a conversation. Progress/Results/Core Measures Results/Orders My Orders Orders - TASH ALARCON MD Shoulder 3 View Right (12/01/20 21:57) Ed Iv/Invasive Line Start (12/01/20 22:09) Monitor-Rhythm Ecg Trace Only (12/01/20 22:09) O2 (12/01/20 22:09) Conscious Sedation (12/01/20 22:09) Fentanyl Inj (Sublimaze Injection) (12/01/20 22:15) Vital Signs-Conscious Sedation (12/01/20 22:09) Shoulder 1 View Right (12/01/20 22:18) Midazolam Injection (Versed Injection) (12/01/20 22:19) Ondansetron Injection (Zofran Injectio (12/01/20 22:19) Fentanyl Inj (Sublimaze Injection) (12/01/20 22:46) Ed Ortho/Other Supplies Order (12/01/20 22:56) Orthopedic Equiment (12/01/20 22:56) End Tidal Co2 (12/01/20 22:56) Rx-Hydrocodone/Apap 5-325 Mg (Rx-Vicodin (12/01/20 23:15) Medications Given in ED Current Medications Medications Dose Ordered Sig/Kurtis Route Start Time Stop Time Status Last Admin Dose Admin Fentanyl Citrate 100 mcg ONCE ONCE IVP 12/01/20 22:15 12/01/20 22:16 DC 12/01/20 22:21 100 MCG Vital Signs/I&O 12/01/20 12/01/20 12/01/20 12/01/20 21:50 22:45 22:45 22:47 Temp 36.7 36.7 Pulse 89 90 Resp 14 14 B/P (MAP) 156/110 (125) 167/109 Pulse Ox 96 97 96 O2 Delivery Room Air Nasal Cannula Nasal Cannula Nasal Cannula O2 Flow Rate 3.00 3.00 97.00 3.00 12/01/20 12/01/20 23:00 23:15 Temp 36.9 36.7 Pulse 92 95 Resp 14 12 B/P (MAP) 169/96 159/96 Pulse Ox 97 98 O2 Delivery Nasal Cannula Nasal Cannula O2 Flow Rate 3.00 3.00 Progress Progress Note #1: Progress Note Order Fentanyl and Toradol IM for pain. Xrays to check out the shoulder. Progress Note #2: Progress Note Change orders to IV for pain and nausea. Consented to conscious sedation and closed reduction of right shoulder since xrays appear to show subluxation or dislocation of the shoulder. Progress Note #3: Progress Note Pt tolerated procedure well without any immediate complication. with sedation and pain medicine on board I was able to move her shoulder through a range of motion and xrays show shoulder in place so put in sling. Pt reports pain resolved. Discharge with script for a few hydrocodone and insturctions to follow up with Orthopedics Diagnostic Imaging Diagonstic Imaging: Xray Plain Films/CT/US/NM/MRI: other (shoulder) Comments On my review of the 3 views of her right shoulder it appears that she has subluxation or dislocation of the shoulder joint with some separation of the AC joint. Reviewed: Reviewed by Me Diagonstic Imaging: Xray Plain Films/CT/US/NM/MRI: other (post reduction shoulder) Comments On my review of the 1 view postreduction film of right shoulder it appears that the joint is in good position. Reviewed: Reviewed by Me Departure Impression Primary Impression: Dislocation of shoulder, right, closed Qualified Codes: S43.004A - Unspecified dislocation of right shoulder joint, initial encounter Additional Impressions: Separation of acromioclavicular joint due to injury Shoulder pain, right Qualified Codes: M25.511 - Pain in right shoulder Fall from wheelchair Qualified Codes: W05.0XXA - Fall from non-moving wheelchair, initial encounter Disposition: 01 HOME, SELF-CARE Condition: Stable Departure-Patient Inst. Decision time for Depature: 23:10 Referrals: ANA HASSAN APRN (PCP) Primary Care Physician OPAL MI MD Patient Instructions: Moderate and Deep Sedation in Adults, Opioids for Short- Term Treatment of Pain ED, Shoulder Dislocation (DC), Shoulder Pain ED Add. Discharge Instructions: Wear sling at all times for support of your right shoulder and arm until seen with Orthopedics. Call Dr. Mi and his Nurse Practitioner Franco Rajan at [phone] to get a follow up appointment from your fall and shoulder pain and injury today. Ice 20-30 minutes every few hours as needed for pain and swelling. Use Hydrocodone/Acetaminophen 5/325 mg every 8 hours as needed for severe pain with shoulder. All discharge instructions reviewed with patient and/or family. Voiced understanding. Scripts Hydrocodone/Acetaminophen (Hydrocodone-Acetamin 5-325 mg) 1 Each Tablet 1 TAB PO Q8H PRN for PAIN-SEVERE (8-10) for 5 Days, #15 TAB 0 Refills Prov: TASH ALARCON MD 12/01/20 TASH ALARCON MD Dec 01, 2020 22:03
[2020-12-01] MEDS ORDERED: fentaNYL INJ 100 MCG/2 ML AMP IVP ONE (22:15)
[2020-12-01] MEDS ORDERED: ONDANSETRON 4 MG/2 ML (SDV) Z0FRAN IVP STA (22:19)
[2020-12-01] MEDS ORDERED: MIDAZOLAM 2 MG/2 ML (VERSED) VIAL IVP STA (22:19)
[2020-12-01] MEDS ORDERED: fentaNYL INJ 100 MCG/2 ML AMP ONE (22:46)
[2020-12-01] MEDS ORDERED: ACHD5005 PO (23:08)
[2020-12-02 00:37] VITALS: BP 158/98
--- NOTE | 2020-12-02 05:30 | Diagnostic Imaging Report ---
INDICATION: Fall. Right shoulder pain. Comparison with 05/28/2020 exam. FINDINGS: No fractures, dislocations or other bony abnormalities. IMPRESSION: Normal right shoulder. Dictated by: Dictated on workstation # [id number]
--- NOTE | 2020-12-02 05:58 | Diagnostic Imaging Report ---
INDICATION: Post reduction. FINDINGS: Single view. Glenohumeral joint is in good alignment. Articulating surfaces are smooth. AC joint shows good alignment. No fractures demonstrated. IMPRESSION: Satisfactory postreduction film. Dictated by: Dictated on workstation # [id number]
== END 2020-12-02 00:22 | disposition home or self-care (01) ==
LOC: EDUNIT# 21:40 → ER FS 21:41
DX: S43.101A Unspecified dislocation of right acromioclavicular joint, initial encounter (principal); E11.40 Type 2 diabetes mellitus with diabetic neuropathy, unspecified; J43.9 Emphysema, unspecified; I50.9 Heart failure, unspecified; F20.9 Schizophrenia, unspecified; F31.9 Bipolar disorder, unspecified; M79.7 Fibromyalgia; G89.29 Other chronic pain; M54.9 Dorsalgia, unspecified; G47.33 Obstructive sleep apnea (adult) (pediatric); E66.9 Obesity, unspecified; Z68.45 Body mass index [BMI] 70 or greater, adult; Z79.84 Long term (current) use of oral hypoglycemic drugs; Z79.891 Long term (current) use of opiate analgesic; Z79.52 Long term (current) use of systemic steroids; Z79.899 Other long term (current) drug therapy; Z87.81 Personal history of (healed) traumatic fracture; W05.0XXA Fall from non-moving wheelchair, initial encounter
CPT/HCPCS: 73020; 73030; 93041; 96374; 96375

== ENCOUNTER 2020-12-11 20:00 | Emergency (ER) | payer MEDICAID ==
[~2020-12-11] VITALS: Ht 157.4 cm; Wt 140.7 kg
--- NOTE | 2020-12-11 20:12 | ED Upper Extremity ---
General Chief Complaint: Upper Extremity Stated Complaint: RIGHT SHOULDER INJURY History of Present Illness Date Seen by Provider: Dec 11, 2020 Time Seen by Provider: 08:14 Initial Comments 50-year-old female presents with right shoulder pain patient presents with a history of recurrent falls. Patient is concerned that she may have dislocated her right shoulder.. Patient reports that she was seen here about a week ago following a fall with similar compaints . Patient was sent home in a sling at that time but states that the half-way made her take it out of the sling so she could use her walker and not have to use a wheelchair. Patient has pain with movement and palpitation in the right shoulder shoulder region. Allergies and Home Medications Allergies Coded Allergies: doxycycline (Unverified Allergy, Mild, nauseated, 08/01/09) spinach (Unverified Allergy, Mild, 08/01/09) alprazolam (Verified Allergy, Unknown, 07/18/19) diazepam (Verified Allergy, Unknown, 07/18/19) sumatriptan (Verified Allergy, Unknown, 07/18/19) Home Medications Albuterol Sulfate 1 Puff Puff, 2 PUFF INH Q4H PRN for COUGH, (Reported) Albuterol/Ipratropium 4 Gm Aero, 2 PUFF IH TID Prescribed by: EMILY DOMÍNGUEZ on 10/03/201913 Amoxicillin/Potassium Clav 1 Each Tablet, 1 EACH PO BID Prescribed by: EMILY DOMÍNGUEZ on 10/03/201913 Cefdinir 300 Mg Capsule, 300 MG PO BID Prescribed by: LEONOR CAMARGO on 03/29/20 1340 Furosemide 40 Mg Tablet, 40 MG PO BID, (Reported) Gabapentin 600 Mg Tablet, 1,200 MG PO TID, (Reported) TAKES 2 (600MG) TABS Glimepiride 2 Mg Tablet, 2 MG PO BID, (Reported) Haloperidol 10 Mg Tablet, 10 MG PO TID, (Reported) Hydrocodone/Acetaminophen 1 Each Tablet, 1 TAB PO Q6H PRN for PAIN-MODERATE (5- 7) Prescribed by: MAUREEN PARSONS on 08/18/20 165 Hydrocodone/Acetaminophen 1 Each Tablet, 1 TAB PO Q8H PRN for PAIN-SEVERE (8-10) Prescribed by: TASH ALARCON on 12/01/20 2309 Lurasidone HCl 120 Mg Tablet, 120 MG PO 1800, (Reported) TAKES 120MG + 40MG TO EQUAL 160MG DAILY Lurasidone HCl 40 Mg Tablet, 40 MG PO 1800, (Reported) TAKES 120MG + 40MG TO EQUAL 160MG DAILY Montelukast Sodium 10 Mg Tablet, 10 MG PO DAILY, (Reported) Ondansetron 4 Mg Tab.rapdis, 4 MG PO Q6H PRN for NAUSEA/VOMITING Prescribed by: TASH ALARCON on 09/20/20 2318 Phenytoin Sodium Extended 200 Mg Capsule, 200 MG PO BID, (Reported) Prednisone 20 Mg Tab, 40 MG PO DAILY Prescribed by: EMILY DOMÍNGUEZ on 10/03/20 191 Quetiapine Fumarate 100 Mg Tablet, 300 MG PO DAILY, (Reported) TAKES 3 (100MG) TABS Rivaroxaban 20 Mg Tablet, 20 MG PO DAILY, (Reported) Topiramate 100 Mg Tablet, 200 MG PO BID, (Reported) TAKES 2 (100MG) TABS Trazodone HCl 100 Mg Tablet, 200 MG PO HS, (Reported) TAKES 2 (100MG) TABS Venlafaxine HCl 150 Mg Cap.er.24h, 300 MG PO DAILY, (Reported) TAKES 2 (150MG) CAPS Patient Home Medication List Home Medication List Reviewed: Yes Review of Systems Constitutional: No chills, No fever Respiratory: cough (Chronic), short of breath (Chronic) Cardiovascular: No chest pain, No palpitations Gastrointestinal: No abdominal pain Musculoskeletal: no symptoms reported Skin: no symptoms reported Psychiatric/Neurological: No Symptoms Reported Past Jjiazvv-Yjbmys-Yrtvij Hx Seasonal Allergies Seasonal Allergies: No Past Medical History Surgeries: Yes (HIP, suprapubic catheter, Dental) Appendectomy, Gallbladder, Hysterectomy, Orthopedic Respiratory: Yes Asthma, Pneumonia, Chronic Bronchitis, Pulmonary Embolism, COPD, Emphysema Cardiac: Yes (CHF) Neurological: Yes Neuropathy 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 Disorders: No 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 Sexually Transmitted Disease: No HIV/AIDS: No Genitourinary: Yes Kidney Stones, Neurogenic Bladder, UTI-Chronic Gastrointestinal: Yes Abdominal Hernia, Gastroesophageal Reflux, Chronic Constipation, Irritable Bowel Musculoskeletal: Yes Arthritis, Fibromyalgia, Back Injury, Chronic Back Pain, Fractures, Spasms Endocrine: Yes Diabetes, Insulin dep, Hypothyroidsim HEENT: No Hearing Impairment: Hard of Hearing Cancer: Yes Ovarian Psychosocial: Yes ADD/ADHD, Bipolar, Schizophrenia Integumentary: No Blood Disorders: No Family Medical History No Pertinent Family Hx Physical Exam Vital Signs Vital Signs - First Documented 12/11/20 20:22 Temp 35.9 Pulse 93 Resp 20 B/P (MAP) 143/99 (114) Pulse Ox 97 O2 Delivery Room Air Capillary Refill : Height, Weight, BMI Height: '" Weight: 275lbs. oz. 124.930196wy; 85.00 BMI Method:Stated General Appearance: obese (Morbid) Cardiovascular: normal peripheral pulses, regular rate, rhythm Respiratory: no respiratory distress, no accessory muscle use, wheezing (Mild diffuse) Gastrointestinal: soft Shoulder: limited ROM, soft tissue tenderness Elbow/Forearm: normal inspection Wrist: Yes normal inspection Hand: normal inspection Neurologic/Psychiatric: alert, normal mood/affect, oriented x 3 Procedures/Interventions Patient Education: Explained Benefits, Explained Risks, Pt. Ack. Understanding Patient History: Heavy Snoring, Sleep Apnea Breath Sounds per Auscultation: Wheezes Heart Sounds per Auscultation: Regular Airway Exam: Mouth opens >2 fingers, Neck Full Range of Motion Re-examination Time: 2352 Progress/Results/Core Measures Results/Orders My Orders Orders - AMBREEN LEGER DO Shoulder 2 View Right (12/11/20 20:17) Vital Signs/I&O 12/11/20 20:22 Temp 35.9 Pulse 93 Resp 20 B/P (MAP) 143/99 (114) Pulse Ox 97 O2 Delivery Room Air Diagnostic Imaging Diagonstic Imaging: Xray Plain Films/CT/US/NM/MRI: other (rt shoulder ) Comments pt xray similar to 4 previous xray with no acute fx or dislocation HOULDER 2 VIEW RIGHT Clinical indications: Patient with injury. Patient fell since last visit. Exam: X-ray of the right shoulder, AP and oblique/scapular Y view. Comparison: X-ray of the right shoulder dated 08/05/2020 Findings and impression: 1: Again noted, inferiorly positioned right humeral head which may represent subluxation which is noted compared to prior study. Pseudosubluxation from joint effusion may also be present. 2: Limited visualization of bony structures but no definite acute fracture is visualized. Reviewed: Reviewed by Me, Reviewed/Discussed Departure Impression Primary Impression: Frequent falls Additional Impression: Contusion of shoulder and upper arm Disposition: 01 HOME, SELF-CARE Condition: Stable Departure-Patient Inst. Referrals: ANA HASSAN APRN (PCP/Family) Primary Care Physician Patient Instructions: Contusion (DC), Preventing Falls, Shoulder Pain (DC) AMBREEN LEGER DO Dec 11, 2020 20:12
[2020-12-11 20:22] VITALS: BP 143/99
--- NOTE | 2020-12-11 21:54 | Diagnostic Imaging Report ---
Clinical indications: Patient with injury. Patient fell since last visit. Exam: X-ray of the right shoulder, AP and oblique/scapular Y view. Comparison: X-ray of the right shoulder dated 08/05/2020 Findings and impression: 1: Again noted, inferiorly positioned right humeral head which may represent subluxation which is noted compared to prior study. Pseudosubluxation from joint effusion may also be present. 2: Limited visualization of bony structures but no definite acute fracture is visualized. Dictated by: Dictated on workstation # [id number]
== END 2020-12-11 20:55 | disposition home or self-care (01) ==
LOC: EDUNIT# 20:00 → ER FS 20:04
DX: S40.011A Contusion of right shoulder, initial encounter (principal); S40.021A Contusion of right upper arm, initial encounter; J44.9 Chronic obstructive pulmonary disease, unspecified; I50.9 Heart failure, unspecified; F31.9 Bipolar disorder, unspecified; F20.9 Schizophrenia, unspecified; E66.01 Morbid (severe) obesity due to excess calories; G89.29 Other chronic pain; M54.9 Dorsalgia, unspecified; E11.9 Type 2 diabetes mellitus without complications; Z68.45 Body mass index [BMI] 70 or greater, adult; Z79.01 Long term (current) use of anticoagulants; Z79.52 Long term (current) use of systemic steroids; Z79.899 Other long term (current) drug therapy; W19.XXXA Unspecified fall, initial encounter; Z79.891 Long term (current) use of opiate analgesic
CPT/HCPCS: 73030

== ENCOUNTER → 2020-12-27 | Outpatient (CLI) | payer MEDICAID ==
--- NOTE | 2020-12-27 17:02 | Diagnostic Imaging Report ---
INDICATION: History of shoulder dislocation. Follow-up. COMPARISON: 12/11/2020 FINDINGS: Multiple radiographic views of the right shoulder were again obtained. Note is again made that the humeral head appears slightly subluxed on the glenoid. AP alignment is maintained. Appearance is largely stable compared to prior exam. No new acute osseous abnormality is seen. Degenerative changes to the undersurface of the acromion with prominent hooking is noted. No unexpected radiopaque foreign bodies are identified. IMPRESSION: 1. Stable mild inferior subluxation at the glenohumeral joint space. No acute fracture. Dictated by: Dictated on workstation # [id number]
== END ==
LOC: RAD FS 14:07
PROVIDERS: ATTEND Nurse Practitioner
DX: S43.031D Inferior subluxation of right humerus, subsequent encounter (principal); S40.011D Contusion of right shoulder, subsequent encounter; X58.XXXD Exposure to other specified factors, subsequent encounter
CPT/HCPCS: 73030

== ENCOUNTER 2020-12-29 13:53 | Emergency (ER) | payer MEDICAID ==
[~2020-12-29] VITALS: Ht 157.4 cm; Wt 142.7 kg
[2020-12-29 14:20] VITALS: BP 151/75
--- NOTE | 2020-12-29 15:10 | Diagnostic Imaging Report ---
INDICATION: Shortness of breath. COMPARISON: Exam compared to 10/03/2020. FINDINGS: Upper limits heart size, stable. No vascular congestion. No focal infiltrate, effusion, or pneumothorax. We acknowledge radiographic sensitivity limitations, particularly at the lung bases owing to body habitus. IMPRESSION: No acute finding apparent. Dictated by: Dictated on workstation # [id number]
[2020-12-29 15:40] LABS: BASOPHILS % (AUTO) 0 % (0-10); EOSINOPHILS # (AUTO) 0.2 10^3/uL (0.0-0.3); EOSINOPHILS % (AUTO) 2 % (0-10); HEMATOCRIT 35 % (35-52); LYMPHOCYTES # (AUTO) 1.6 X 10^3 (1.0-4.0); LYMPHOCYTES % (AUTO) 13 % (12-44); MEAN CORPUSCULAR HEMOGLOBIN 34 PG (25-34); MEAN CORPUSCULAR HGB CONC 34 G/DL (32-36); MEAN CORPUSCULAR VOLUME 99 FL (80-99); MEAN PLATELET VOLUME 9.6 FL (7.4-10.4); MONOCYTES # (AUTO) 0.9 X 10^3 (0.0-1.0); MONOCYTES % (AUTO) 7 % (0-12); NEUTROPHILS # (AUTO) 9.4 X 10^3 (1.8-7.8); NEUTROPHILS % (AUTO) 77 % (42-75); PLATELET COUNT 219 10^3/uL (130-400); WHITE BLOOD COUNT 12.1 10^3/uL (4.3-11.0)
[2020-12-29 15:41] LABS: PROTHROMBIN TIME PATIENT 13.2 SEC (12.2-14.7)
[2020-12-29 16:00] LABS: ALBUMIN 3.8 GM/DL (3.2-4.5); BILIRUBIN,TOTAL 0.3 MG/DL (0.1-1.0); CALCIUM 8.5 MG/DL (8.5-10.1); CREATININE SERUM 0.61 MG/DL (0.60-1.30); MAGNESIUM 1.7 MG/DL (1.6-2.4); POTASSIUM 3.6 MMOL/L (3.6-5.0); TOTAL PROTEIN 6.6 GM/DL (6.4-8.2)
--- NOTE | 2020-12-29 17:56 | ED General ---
General Chief Complaint: General Problems/Pain Stated Complaint: CLAUDY LEG SWELLING; DROWSINESS Source of Information: RN Notes Reviewed History of Present Illness Date Seen by Provider: Dec 29, 2020 Time Seen by Provider: 17:38 Initial Comments 50 yo Female presenting from clinic after being seen in clinic and referred to ED due to being sleepy. Pt complained to ED staff of chronic leg swelling not responding to Lasix. Labs and testing ordered based on history and presenting complaint of leg swelling. Due to high acuity of multiple patients and several patients in the ED the patient had waited to be seen and examined by ED physician. Pt chose to leave against medical advice rather than wait to be examined by ED provider and review testing results of labs done in the ED. Allergies and Home Medications Allergies Coded Allergies: doxycycline (Unverified Allergy, Mild, nauseated, 08/01/09) spinach (Unverified Allergy, Mild, 08/01/09) alprazolam (Verified Allergy, Unknown, 07/18/19) diazepam (Verified Allergy, Unknown, 07/18/19) sumatriptan (Verified Allergy, Unknown, 07/18/19) Home Medications Albuterol Sulfate 1 Puff Puff, 2 PUFF INH Q4H PRN for COUGH, (Reported) Albuterol/Ipratropium 4 Gm Aero, 2 PUFF IH TID Prescribed by: EMILY DOMÍNGUEZ on 10/03/201913 Amoxicillin/Potassium Clav 1 Each Tablet, 1 EACH PO BID Prescribed by: EMILY DOMÍNGUEZ on 10/03/201913 Cefdinir 300 Mg Capsule, 300 MG PO BID Prescribed by: LEONOR CAMARGO on 03/29/20 1340 Furosemide 40 Mg Tablet, 40 MG PO BID, (Reported) Gabapentin 600 Mg Tablet, 1,200 MG PO TID, (Reported) TAKES 2 (600MG) TABS Glimepiride 2 Mg Tablet, 2 MG PO BID, (Reported) Haloperidol 10 Mg Tablet, 10 MG PO TID, (Reported) Hydrocodone/Acetaminophen 1 Each Tablet, 1 TAB PO Q6H PRN for PAIN-MODERATE (5- 7) Prescribed by: MAUREEN PARSONS on 08/18/20 1653 Hydrocodone/Acetaminophen 1 Each Tablet, 1 TAB PO Q8H PRN for PAIN-SEVERE (8-10) Prescribed by: TASH ALARCON on 12/01/20 2309 Lurasidone HCl 120 Mg Tablet, 120 MG PO 1800, (Reported) TAKES 120MG + 40MG TO EQUAL 160MG DAILY Lurasidone HCl 40 Mg Tablet, 40 MG PO 1800, (Reported) TAKES 120MG + 40MG TO EQUAL 160MG DAILY Montelukast Sodium 10 Mg Tablet, 10 MG PO DAILY, (Reported) Ondansetron 4 Mg Tab.rapdis, 4 MG PO Q6H PRN for NAUSEA/VOMITING Prescribed by: TASH ALARCON on 09/20/20 2318 Phenytoin Sodium Extended 200 Mg Capsule, 200 MG PO BID, (Reported) Prednisone 20 Mg Tab, 40 MG PO DAILY Prescribed by: EMILY DOMÍNGUEZ on 10/03/20 1914 Quetiapine Fumarate 100 Mg Tablet, 300 MG PO DAILY, (Reported) TAKES 3 (100MG) TABS Rivaroxaban 20 Mg Tablet, 20 MG PO DAILY, (Reported) Topiramate 100 Mg Tablet, 200 MG PO BID, (Reported) TAKES 2 (100MG) TABS Trazodone HCl 100 Mg Tablet, 200 MG PO HS, (Reported) TAKES 2 (100MG) TABS Venlafaxine HCl 150 Mg Cap.er.24h, 300 MG PO DAILY, (Reported) TAKES 2 (150MG) CAPS Patient Home Medication List Home Medication List Reviewed: Yes Review of Systems Review of Systems Constitutional: see HPI Unable to obtain ROS due to pt left prior to evaluation by ED physician Past Foxfjeu-Uyqaom-Lnbild Hx Patient Social History Tobacco Use?: Yes Tobacco type used: Cigarettes Smoking Status: Current Everyday Smoker Substance use?: No Alcohol Use?: No Pt feels they are or have been: No Immunizations Up To Date Second COVID19 Vaccination Magdaleno: 11/2020 COVID19 Vaccine Insulation Supervisor: Erika Seasonal Allergies Seasonal Allergies: No Past Medical History Surgeries: Yes (HIP, suprapubic catheter, Dental) Appendectomy, Gallbladder, Hysterectomy, Orthopedic Respiratory: Yes Asthma, Pneumonia, Chronic Bronchitis, Pulmonary Embolism, COPD, Emphysema Cardiac: Yes (CHF) Neurological: Yes Neuropathy 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 Disorders: No 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 [employer]PA[employer]ER History: Hysterectomy Sexually Transmitted Disease: No HIV/AIDS: No Genitourinary: Yes Kidney Stones, Neurogenic Bladder, UTI-Chronic Gastrointestinal: Yes Abdominal Hernia, Gastroesophageal Reflux, Chronic Constipation, Irritable Bowel Musculoskeletal: Yes Arthritis, Fibromyalgia, Back Injury, Chronic Back Pain, Fractures, Spasms Endocrine: Yes Diabetes, Insulin dep, Hypothyroidsim HEENT: No Hearing Impairment: Hard of Hearing Cancer: Yes Ovarian Psychosocial: Yes ADD/ADHD, Bipolar, Schizophrenia Integumentary: No Blood Disorders: No Family Medical History No Pertinent Family Hx Physical Exam Vital Signs Capillary Refill : Height, Weight, BMI Height: '" Weight: 275lbs. oz. 124.528253oh; 56.00 BMI Method:Stated General Appearance: No Apparent Distress, Obese, Other (Pt left prior to physical exam and full evaluation by ED provider so had only visual exam as she was wheeled into the ED and room) Progress/Results/Core Measures Suspected Sepsis SIRS Temperature: Pulse: Respiratory Rate: Laboratory Tests 12/29/20 15:10: White Blood Count 12.1H Blood Pressure / Mean: Laboratory Tests 12/29/20 15:10: Creatinine 0.61, INR Comment 1.0, Platelet Count 219, Total Bilirubin 0.3 Results/Orders Lab Results Laboratory Tests Test 12/29/20 15:10 Range/Units White Blood Count 12.1 H 4.3-11.0 10^3/uL Red Blood Count 3.53 L 4.35-5.85 10^6/uL Hemoglobin 12.0 11.5-16.0 G/DL Hematocrit 35 35-52 % Mean Corpuscular Volume 99 80-99 FL Mean Corpuscular Hemoglobin 34 25-34 PG Mean Corpuscular Hemoglobin Concent 34 32-36 G/DL Red Cell Distribution Width 13.9 10.0-14.5 % Platelet Count 219 130-400 10^3/uL Mean Platelet Volume 9.6 7.4-10.4 FL Immature Granulocyte % (Auto) 1 % Neutrophils (%) (Auto) 77 H 42-75 % Lymphocytes (%) (Auto) 13 12-44 % Monocytes (%) (Auto) 7 0-12 % Eosinophils (%) (Auto) 2 0-10 % Basophils (%) (Auto) 0 0-10 % Neutrophils # (Auto) 9.4 H 1.8-7.8 X 10^3 Lymphocytes # (Auto) 1.6 1.0-4.0 X 10^3 Monocytes # (Auto) 0.9 0.0-1.0 X 10^3 Eosinophils # (Auto) 0.2 0.0-0.3 10^3/uL Basophils # (Auto) 0.0 0.0-0.1 10^3/uL Immature Granulocyte # (Auto) 0.2 H 0.0-0.1 10^3/uL Prothrombin Time 13.2 12.2-14.7 SEC INR Comment 1.0 0.8-1.4 Activated Partial Thromboplast Time 38 H 24-35 SEC Sodium Level 126 L 135-145 MMOL/L Potassium Level 3.6 3.6-5.0 MMOL/L Chloride Level 90 L 98-107 MMOL/L Carbon Dioxide Level 25 21-32 MMOL/L Anion Gap 11 5-14 MMOL/L Blood Urea Nitrogen 10 7-18 MG/DL Creatinine 0.61 0.60-1.30 MG/DL Estimat Glomerular Filtration Rate 105 BUN/Creatinine Ratio 16 Glucose Level 103 70-105 MG/DL Calcium Level 8.5 8.5-10.1 MG/DL Corrected Calcium 8.7 8.5-10.1 MG/DL Magnesium Level 1.7 1.6-2.4 MG/DL Total Bilirubin 0.3 0.1-1.0 MG/DL Aspartate Amino Transf (AST/SGOT) 10 5-34 U/L Alanine Aminotransferase (ALT/SGPT) 10 0-55 U/L Alkaline Phosphatase 150 H 40-136 U/L Troponin I < 0.30 <0.30 NG/ML Pro-B-Type Natriuretic Peptide 123.4 H <75.0 PG/ML Total Protein 6.6 6.4-8.2 GM/DL Albumin 3.8 3.2-4.5 GM/DL My Orders Orders - TASH ALARCON MD Cbc With Automated Diff (12/29/20 14:50) Magnesium (12/29/20 14:50) Chest 1 View Ap/Pa Only (12/29/20 14:50) Comprehensive Metabolic Panel (12/29/20 14:50) Protime With Inr (12/29/20 14:50) Partial Thromboplastin Time (12/29/20 14:50) O2 (12/29/20 14:50) Monitor-Rhythm Ecg Trace Only (12/29/20 14:50) Ed Iv/Invasive Line Start (12/29/20 14:50) Troponin I Fs (12/29/20 14:50) Probnp Fs (12/29/20 14:50) Vital Signs/I&O Capillary Refill : Progress Note : Progress Note Based on patient complaints of leg swelling labs and cardiac testing were sent. She has chronic COPD and heart issues. From prior visits she has had somnolence and slow to respond. No acute significant abnormality on testing and her labs appear at baseline for her. No infiltrate or effusion on CXR. Due to multiple high acuity patients and number of patients she was waiting to review results and discuss testing and plan with myself as the ED provider. However she decided that she did not want to wait any longer while I was dealing with a critical patient that required my direct constant attention and care. Nu rsing staff explained to her that her tests appear stable and that I would come speak with her and examine her as soon as I was free from taking care of the critical patient. the nursing staff counseled her that she would be leaving against medical advice since she had not been fully evaluated and examined by ED provider and she still chose to leave. Diagnostic Imaging Diagonstic Imaging: Xray Plain Films/CT/US/NM/MRI: chest Comments [facility], [place] NAME: JERALD VELAZQUEZ Hugo [facility] REC#: [id number] PT STATUS: REG ER : 1970 PHYSICIAN: TASH ALARCON MD ADMIT DATE: 12/29/20/ER FS Signed Date of Exam:12/29/20 CHEST 1 VIEW AP/PA ONLY INDICATION: Shortness of breath. COMPARISON: Exam compared to 10/03/2020. FINDINGS: Upper limits heart size, stable. No vascular congestion. No focal infiltrate, effusion, or pneumothorax. We acknowledge radiographic sensitivity limitations, particularly at the lung bases owing to body habitus. IMPRESSION: No acute finding apparent. Dictated by: Dictated on workstation # [id number] Dict: 12/29/20 1507 Trans: 12/29/20 1639 AS6 [id number] Interpreted by: DAVEY WEIR Electronically signed by: DAVEY WEIR 12/29/20 1639 Reviewed: Reviewed by Me Departure Impression Primary Impression: Chronic edema Additional Impression: Somnolence Disposition: AGAINST MEDICAL ADVICE Condition: Against Medical Advice Departure-Patient Inst. Referrals: ANA HASSAN APRN (PCP) Primary Care Physician [facility] (Family) Primary Care Physician TASH ALARCON MD Dec 29, 2020 17:56
== END 2020-12-29 17:30 | disposition left against medical advice (07) ==
LOC: EDUNIT# 13:53 → ER FS 13:55
DX: R60.0 Localized edema (principal); E11.40 Type 2 diabetes mellitus with diabetic neuropathy, unspecified; J43.9 Emphysema, unspecified; I50.9 Heart failure, unspecified; M79.7 Fibromyalgia; F31.9 Bipolar disorder, unspecified; F20.9 Schizophrenia, unspecified; G89.29 Other chronic pain; M54.9 Dorsalgia, unspecified; F17.210 Nicotine dependence, cigarettes, uncomplicated; E66.9 Obesity, unspecified; Z68.43 Body mass index [BMI] 50.0-59.9, adult; Z79.4 Long term (current) use of insulin; Z79.891 Long term (current) use of opiate analgesic; Z79.52 Long term (current) use of systemic steroids; Z79.899 Other long term (current) drug therapy
CPT/HCPCS: 36415; 71045; 80053; 83735; 83880; 84484; 85025; 85610; 85730

== ENCOUNTER 2021-02-27 04:19 | Emergency (ER) | payer MEDICAID ==
[2021-02-27] MEDS ORDERED: ORPHENADRINE 60 MG/2 ML (NORFLEX) AMP (ED ONLY) IVP STA (04:29)
[2021-02-27] MEDS ORDERED: KETOROLAC 30 MG/ML VIAL IVP STA (04:29)
[2021-02-27 04:51] LABS: CALCIUM 8.9 MG/DL (8.5-10.1); CREATININE SERUM 0.84 MG/DL (0.60-1.30); POTASSIUM 3.6 MMOL/L (3.6-5.0)
--- NOTE | 2021-02-27 04:56 | ED Lower Extremity ---
General Chief Complaint: Lower Extremity Stated Complaint: LEG TREMORS Source: patient, EMS, old records History of Present Illness Date Seen by Provider: Feb 27, 2021 Time Seen by Provider: 04:19 Initial Comments 50 yo female presenting by EMS with complaints of acute on chronic low back pain and spasms and cramping in legs that are making her legs "draw up" on her. She states this has been happening this week but usually after about 5 hours it goes away. She states that she has not had any fall or injury. She denies any pain or burning with urination. She denies any fever or chills. She has no change in her bowels. She did take cyclobenzaprine and tramadol for her pain and spasms which seem to help previously but did not help tonight. She does take a diuretic and has not had her labs and electrolytes checked for over a month. She has chronic issues with shortness of breath that have not changed. She denies having any chest pain. This morning she called EMS because she was having so much pain she felt that she needed to be seen in the emergency department. Severity: severe Modifying Factors: Worse With Movement Allergies and Home Medications Allergies Coded Allergies: doxycycline (Unverified Allergy, Mild, nauseated, 08/01/09) spinach (Unverified Allergy, Mild, 08/01/09) alprazolam (Verified Allergy, Unknown, 07/18/19) diazepam (Verified Allergy, Unknown, 07/18/19) sumatriptan (Verified Allergy, Unknown, 07/18/19) Patient Home Medication List Home Medication List Reviewed: Yes Albuterol Sulfate (Ventolin Hfa) 1 Puff Puff, 2 PUFF INH Q4H PRN for COUGH, (Reported) Entered as Reported by: PEREZ HENDERSON on 03/29/20 1200 Albuterol/Ipratropium (Combivent Respimat Inhal Burton) 4 Gm Aero, 2 PUFF IH TID Prescribed by: EMILY DOMÍNGUEZ on 10/03/201913 Amoxicillin/Potassium Clav (Augmentin 875-125 Tablet) 1 Each Tablet, 1 EACH PO BID Prescribed by: EMILY DOMÍNGUEZ on 10/03/201913 Cefdinir (Cefdinir) 300 Mg Capsule, 300 MG PO BID Prescribed by: LEONOR CAMARGO on 03/29/20 1340 Cephalexin (Cephalexin) 500 Mg Capsule, 500 MG PO TID Prescribed by: TASH ALARCON on 02/27/21 06 Fluticasone Propionate (Flonase Allergy Relief) 9.9 Ml Burton.susp, 1 SPRAY NS DAILY Prescribed by: TASH ALARCON on 02/27/21 06 Furosemide (Furosemide) 40 Mg Tablet, 40 MG PO BID, (Reported) Entered as Reported by: PEREZ HENDERSON on 03/29/201199 Gabapentin (Gabapentin) 600 Mg Tablet, 1,200 MG PO TID, (Reported) Entered as Reported by: PEREZ HENDERSON on 03/29/201199 Glimepiride (Glimepiride) 2 Mg Tablet, 2 MG PO BID, (Reported) Entered as Reported by: PEREZ HENDERSON on 03/29/201199 Haloperidol (Haloperidol) 10 Mg Tablet, 10 MG PO TID, (Reported) Entered as Reported by: PEREZ HENDERSON on 03/29/201199 Hydrocodone/Acetaminophen (Hydrocodone-Acetamin 5-325 mg) 1 Each Tablet, 1 TAB PO Q6H PRN for PAIN-MODERATE (5-7) Prescribed by: MAUREEN PARSONS on 08/18/20 1653 Hydrocodone/Acetaminophen (Hydrocodone-Acetamin 5-325 mg) 1 Each Tablet, 1 TAB PO Q8H PRN for PAIN-SEVERE (8-10) Prescribed by: TASH ALARCON on 12/01/20 2309 Lurasidone HCl (Latuda) 120 Mg Tablet, 120 MG PO 1800, (Reported) Entered as Reported by: PEREZ HENDERSON on 03/29/20 1200 Lurasidone HCl (Latuda) 40 Mg Tablet, 40 MG PO 1800, (Reported) Entered as Reported by: PEREZ HENDERSON on 03/29/20 1200 Montelukast Sodium (Montelukast Sodium) 10 Mg Tablet, 10 MG PO DAILY, (Reported) Entered as Reported by: PEREZ HENDERSON on 03/29/20 1200 Ondansetron (Ondansetron Odt) 4 Mg Tab.rapdis, 4 MG PO Q6H PRN for NAUSEA/VOMITING Prescribed by: TASH ALARCON on 09/20/20 2318 Phenytoin Sodium Extended (Phenytoin Sodium Extended) 200 Mg Capsule, 200 MG PO BID, (Reported) Entered as Reported by: PEREZ HENDERSON on 03/29/201199 Prednisone (Prednisone) 20 Mg Tab, 40 MG PO DAILY Prescribed by: EMILY DOMÍNGUEZ on 10/03/201913 Quetiapine Fumarate (Quetiapine Fumarate) 100 Mg Tablet, 300 MG PO DAILY, (Reported) Entered as Reported by: PEREZ HENDERSON on 03/29/201199 Rivaroxaban (Xarelto) 20 Mg Tablet, 20 MG PO DAILY, (Reported) Entered as Reported by: PEREZ HENDERSON on 03/29/201199 Topiramate (Topiramate) 100 Mg Tablet, 200 MG PO BID, (Reported) Entered as Reported by: PEREZ HENDERSON on 03/29/201199 Trazodone HCl (Trazodone HCl) 100 Mg Tablet, 200 MG PO HS, (Reported) Entered as Reported by: PEREZ HENDERSON on 03/29/201199 Venlafaxine HCl (Venlafaxine HCl ER) 150 Mg Cap.er.24h, 300 MG PO DAILY, (Reported) Entered as Reported by: PEREZ HENDERSON on 03/29/201199 Review of Systems Constitutional: No chills, No fever EENTM: other (wasp sting yesterday by left eye with mild swelling and tenderness) Respiratory: see HPI Cardiovascular: no symptoms reported Gastrointestinal: no symptoms reported Genitourinary: frequency, hesitancy, other (urgency) Musculoskeletal: see HPI Skin: No rash Psychiatric/Neurological: Anxiety Past Rmgmuom-Zfinmb-Jfdvti Hx Patient Social History Tobacco Use?: Yes Tobacco type used: Cigarettes Smoking Status: Current Everyday Smoker Use of E-Cig and/or Vaping dev: No Substance use?: No Alcohol Use?: No Pt feels they are or have been: No Seasonal Allergies Seasonal Allergies: No Past Medical History Surgeries: Yes (HIP, suprapubic catheter, Dental) Appendectomy, Gallbladder, Hysterectomy, Orthopedic Respiratory: Yes Asthma, Pneumonia, Chronic Bronchitis, Pulmonary Embolism, COPD, Emphysema Cardiac: Yes (CHF) Neurological: Yes Neuropathy 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 Disorders: No 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 Sexually Transmitted Disease: No HIV/AIDS: No Genitourinary: Yes Kidney Stones, Neurogenic Bladder, UTI-Chronic Gastrointestinal: Yes Abdominal Hernia, Gastroesophageal Reflux, Chronic Constipation, Irritable Bowel Musculoskeletal: Yes Arthritis, Fibromyalgia, Back Injury, Chronic Back Pain, Fractures, Spasms Endocrine: Yes Diabetes, Insulin dep, Hypothyroidsim HEENT: No Hearing Impairment: Hard of Hearing Cancer: Yes Ovarian Psychosocial: Yes ADD/ADHD, Bipolar, Schizophrenia Integumentary: No Blood Disorders: No Family Medical History No Pertinent Family Hx Physical Exam Vital Signs Vital Signs - First Documented 02/27/21 04:24 Temp 37.0 Pulse 111 Resp 20 B/P (MAP) 127/101 (110) Pulse Ox 93 O2 Delivery Room Air Capillary Refill : Height, Weight, BMI Height: '" Weight: 275lbs. oz. 124.020553ge; 57.00 BMI Method:Stated General Appearance: obese, other (chronically ill) Cardiovascular: normal peripheral pulses, regular rate, rhythm Gastrointestinal: normal bowel sounds, non tender, soft, no pulsatile mass Legs: bilateral leg soft tissue tenderness (complains of pain with palpation of soft tissues and muscles in both legs) Neurologic/Tendon: normal motor functions, normal tendon functions Neurologic/Psychiatric: alert, oriented x 3 Skin: normal color, warm/dry, other (multiple sores on skin where it looks like she has been picking at self.) Progress/Results/Core Measures Results/Orders Lab Results Laboratory Tests Test 02/27/21 04:32 02/27/21 05:48 Range/Units Sodium Level 132 L 135-145 MMOL/L Potassium Level 3.6 3.6-5.0 MMOL/L Chloride Level 95 L 98-107 MMOL/L Carbon Dioxide Level 28 21-32 MMOL/L Anion Gap 9 5-14 MMOL/L Blood Urea Nitrogen 10 7-18 MG/DL Creatinine 0.84 0.60-1.30 MG/DL Estimat Glomerular Filtration Rate 72 BUN/Creatinine Ratio 12 Glucose Level 143 H 70-105 MG/DL Calcium Level 8.9 8.5-10.1 MG/DL Urine Color YELLOW Urine Clarity CLOUDY Urine pH 6.5 5-9 Urine Specific [place] 1.010 L 1.016-1.022 Urine Protein NEGATIVE NEGATIVE Urine Glucose (UA) NEGATIVE NEGATIVE Urine Ketones NEGATIVE NEGATIVE Urine Nitrite POSITIVE H NEGATIVE Urine Bilirubin NEGATIVE NEGATIVE Urine Urobilinogen >=8.0 < = 1.0 MG/DL Urine Leukocyte Esterase 1+ H NEGATIVE Urine RBC (Auto) NEGATIVE NEGATIVE Urine RBC NONE /HPF Urine WBC 50-100 H /HPF Urine Squamous Epithelial Cells 2-5 /HPF Urine Crystals NONE /LPF Urine Bacteria LARGE H /HPF Urine Casts NONE /LPF Urine Mucus NEGATIVE /LPF Urine Culture Indicated YES My Orders Orders - TASH ALARCON MD Ua Culture If Indicated (02/27/21 04:29) Ed Iv/Invasive Line Start (02/27/21 04:29) Basic Metabolic Panel (02/27/21 04:29) Ct Lumbar Spine Wo (02/27/21 04:29) Ct Pelvis Wo (02/27/21 04:29) Orphenadrine Inj (Ed Only) (Norflex Inje (02/27/21 04:29) Ketorolac Injection (Toradol Injection) (02/27/21 04:29) Urine Culture (02/27/21 05:48) Ceftriaxone (Rocephin) (02/27/21 06:30) Vital Signs/I&O 02/27/21 02/27/21 04:24 06:44 Temp 37.0 Pulse 111 100 Resp 20 20 B/P (MAP) 127/101 (110) 131/78 Pulse Ox 93 93 O2 Delivery Room Air Room Air Progress Progress Note #1: Progress Note Check labs to ensure she does not have electrolyte imbalance to cause spasms and pain. CT of the lumbar spine and pelvis to look for occult fracture or new changes. Give Toradol for pain and inflammation since she is already taken tramadol without improvement. Try a dose of Norflex since she has already taken cyclobenzaprine without improvement. Progress Note #2: Time: 05:38 Progress Note Chemistry did not show acute electrolyte abnormality. CT scan stable without acute findings but showing multilevel degenerative changes. Pt reports improved pain with Toradol and Norflex. Will have her continue meds and check back with clinic and may need to see pain management or spine doctor Progress Note #3: Time: 06:14 Progress Note UA shows Cystitis without hematuria. Will treat with antibiotic and have follow up with clinic. Diagnostic Imaging Diagonstic Imaging: CT Plain Films/CT/US/NM/MRI: pelvis (And lumbar spine) Comments Impression: 1. No acute findings in the lumbar spine. 2. Degenerative changes at multiple levels. Follow-up MRI could be performed. 3. IVC filter is low in position. Read by radiologist Dr. Marino Jenkins MD at [phone] and faxed at [phone] Departure Impression Primary Impression: Acute exacerbation of chronic low back pain Additional Impressions: Muscle spasm of both lower legs Acute cystitis without hematuria Disposition: 01 HOME, SELF-CARE Condition: Improved Departure-Patient Inst. Decision time for Depature: 06:30 Referrals: ANA HASSAN APRN (PCP) Primary Care Physician [facility] (Family) Primary Care Physician Patient Instructions: Muscle Spasm ED, Urinary Tract Infection, Adult ED, Low Back Pain ED Add. Discharge Instructions: Take full course of antibiotics to treat for infection. Use muscle relaxer and pain medicine for leg and low back pain. Check with clinic for continued problems/concerns in case you need to be referred to pain management or spine doctor All discharge instructions reviewed with patient and/or family. Voiced understanding. Scripts Fluticasone Propionate (Flonase Allergy Relief) 9.9 Ml Burton.susp 1 SPRAY NS DAILY for allergic rhinitis for 30 Days, #9.9 ML 0 Refills 1 SPRAY EACH NARE DAILY Prov: TASH ALARCON MD 02/27/21 Cephalexin (Cephalexin) 500 Mg Capsule 500 MG PO TID for UTI for 10 Days, #30 CAP 0 Refills Prov: TASH ALARCON MD 02/27/21 TASH ALARCON MD Feb 27, 2021 04:56
[2021-02-27 06:04] LABS: CLARITY,URINE CLOUDY; COLOR,URINE YELLOW; PH,URINE 6.5 (5-9)
[2021-02-27 06:05] LABS: BACTERIA,URINE LARGE /HPF; BILIRUBIN,URINE NEGATIVE (NEGATIVE); GLUCOSE, URINE (UA) NEGATIVE (NEGATIVE); KETONES,URINE NEGATIVE (NEGATIVE); LEUKOCYTE ESTERASE ,URINE 1+ (NEGATIVE); NITRITE,URINE POSITIVE (NEGATIVE); PROTEIN,URINE NEGATIVE (NEGATIVE); WBC,URINE 50-100 /HPF
[2021-02-27] MEDS ORDERED: cefTRIAXone 1,000 MG in WATER (STERILE) FOR INJECTION 10 ML IV STA (06:30)
[2021-02-27] MEDS ORDERED: CEPH500C PO (06:33)
[2021-02-27] MEDS ORDERED: FLUT9.9S NS (06:33)
[2021-02-27 06:44] VITALS: BP 131/78
--- NOTE | 2021-02-27 07:18 | Diagnostic Imaging Report ---
PROCEDURE: CT lumbar spine without contrast. TECHNIQUE: Multiple contiguous axial images were obtained through the lumbar spine without the use of intravenous contrast. Sagittal and coronal reformations were then performed. Auto Exposure Controls were utilized during the CT exam to meet ALARA standards for radiation dose reduction. INDICATION: Low back pain with spasms. COMPARISON: 11/07/2020 FINDINGS: There is transitional anatomy at the lumbosacral junction with sacralization of L5. Vertebral body heights are preserved. There is mild multilevel disc height loss. No acute fracture is seen in the lumbar spine. The 12th ribs are diminutive. There appear to be mild disc bulges at L3-L4 and L4-L5. No high-grade stenosis is appreciable by CT. There does appear to be some foraminal narrowing. Soft tissues about the lumbar spine demonstrate atherosclerosis. There is calcification in the IVC, may represent old clot, with an IVC filter which appears low. This is stable since 2019. IMPRESSION: 1. Transitional anatomy at the lumbosacral junction with mild degenerative change in the lumbar spine. No acute fracture is seen. No significant changes from the preliminary report. Dictated by: Dictated on workstation # [id number]
--- NOTE | 2021-02-27 07:19 | Diagnostic Imaging Report ---
PROCEDURE: CT pelvis without contrast. TECHNIQUE: Multiple contiguous axial images were obtained through the pelvis without the use of intravenous contrast. Sagittal and coronal reformations were performed. Auto Exposure Controls were utilized during the CT exam to meet ALARA standards for radiation dose reduction. INDICATION: Pelvic pain with spasms in the pelvis and low back COMPARISON: 11/07/2020 FINDINGS: There is internal fixation of the old bilateral femur fractures. No acute fracture is seen in the pelvis. The femoral heads are well-seated in the acetabula bilaterally. No hardware loosening is seen. Bilateral sacral iliac joints are patent. Soft tissues about the pelvis demonstrate no acute abnormality. IMPRESSION: 1. No acute osseous abnormality is seen in the pelvis. No significant changes from the preliminary report. Dictated by: Dictated on workstation # [id number]
== END 2021-02-27 06:45 | disposition home or self-care (01) ==
LOC: EDUNIT# 04:19 → ER FS 04:20
DX: G89.29 Other chronic pain (principal); M54.5 Low back pain; M62.831 Muscle spasm of calf; N30.00 Acute cystitis without hematuria; E66.9 Obesity, unspecified; J44.9 Chronic obstructive pulmonary disease, unspecified; I50.9 Heart failure, unspecified; F20.9 Schizophrenia, unspecified; F31.9 Bipolar disorder, unspecified; E11.9 Type 2 diabetes mellitus without complications; F17.210 Nicotine dependence, cigarettes, uncomplicated; Z68.43 Body mass index [BMI] 50.0-59.9, adult; Z86.711 Personal history of pulmonary embolism; Z79.01 Long term (current) use of anticoagulants; Z79.899 Other long term (current) drug therapy; Z79.891 Long term (current) use of opiate analgesic; Z79.52 Long term (current) use of systemic steroids
CPT/HCPCS: 36415; 72131; 72192; 80048; 81000; 87077; 87088; 87186

== ENCOUNTER 2021-03-08 20:55 | Emergency (ER) | payer MEDICAID ==
[~2021-03-08] VITALS: Ht 158 cm; Wt 140.0 kg
[~2021-03-08 20:55] MED LIST changes: +FLUT9.9S NS
--- NOTE | 2021-03-08 21:24 | ED GI ---
General Chief Complaint: Abdominal/GI Problems Stated Complaint: CONSTIPATION Nursing Triage Note: Pt awake, alert, oriented. To ED overflow room, per wheelchair. Pt reports being constipated for several days, unsure how long, states this is a chronic issue. Pt has been taking several over the counter laxatives et stool softeners. Does not know the name of all of them. Airway intact. Respirations even et unlabored. Skin warm, dry, appropriate for ethnicity. No sx of acute distress. Source of Information: Patient Exam Limitations: No Limitations History of Present Illness Date Seen by Provider: Mar 08, 2021 Time Seen by Provider: 20:59 Initial Comments Patient to the ER by private conveyance from home with chief complaint of constipation for the past 8 days. She does take hydrocodone up to 3 times a day as necessary however she has slowed that down the past couple days because of her constipation. She is been using MiraLAX once a day since Sunday, 2 days ago. She is on Colace and does not feel she is had significant improvement. She does not use any enemas. She is having any fevers or chills. She is not having any nausea or vomiting. She does have medicines for nausea if it happens. Allergies and Home Medications Allergies Coded Allergies: doxycycline (Unverified Allergy, Mild, nauseated, 08/01/09) spinach (Unverified Allergy, Mild, 08/01/09) alprazolam (Verified Allergy, Unknown, 07/18/19) diazepam (Verified Allergy, Unknown, 07/18/19) sumatriptan (Verified Allergy, Unknown, 07/18/19) Patient Home Medication List Home Medication List Reviewed: Yes Albuterol Sulfate (Ventolin Hfa) 1 Puff Puff, 2 PUFF INH Q4H PRN for COUGH, (Reported) Entered as Reported by: PEREZ HENDERSON on 03/29/20 1200 Albuterol/Ipratropium (Combivent Respimat Inhal Levan) 4 Gm Aero, 2 PUFF IH TID Prescribed by: EMILY DOMÍNGUEZ on 10/03/201913 Amoxicillin/Potassium Clav (Augmentin 875-125 Tablet) 1 Each Tablet, 1 EACH PO BID Prescribed by: EMILY DOMÍNGUEZ on 10/03/201913 Cefdinir (Cefdinir) 300 Mg Capsule, 300 MG PO BID Prescribed by: LEONOR CAMARGO on 03/29/20 1340 Cephalexin (Cephalexin) 500 Mg Capsule, 500 MG PO TID Prescribed by: TASH LAARCON on 02/27/21 06 Fluticasone Propionate (Flonase Allergy Relief) 9.9 Ml Levan.susp, 1 SPRAY NS DAILY Prescribed by: TASH ALARCON on 02/27/21 0633 Furosemide (Furosemide) 40 Mg Tablet, 40 MG PO BID, (Reported) Entered as Reported by: PEREZ HENDERSON on 03/29/20 1200 Gabapentin (Gabapentin) 600 Mg Tablet, 1,200 MG PO TID, (Reported) Entered as Reported by: PEREZ HENDERSON on 03/29/20 1200 Glimepiride (Glimepiride) 2 Mg Tablet, 2 MG PO BID, (Reported) Entered as Reported by: PEREZ HENDERSON on 03/29/201199 Haloperidol (Haloperidol) 10 Mg Tablet, 10 MG PO TID, (Reported) Entered as Reported by: PEREZ HENDERSON on 03/29/201199 Hydrocodone/Acetaminophen (Hydrocodone-Acetamin 5-325 mg) 1 Each Tablet, 1 TAB PO Q6H PRN for PAIN-MODERATE (5-7) Prescribed by: MAUREEN PARSONS on 08/18/20 1653 Hydrocodone/Acetaminophen (Hydrocodone-Acetamin 5-325 mg) 1 Each Tablet, 1 TAB PO Q8H PRN for PAIN-SEVERE (8-10) Prescribed by: TASH ALARCON on 12/01/20 2309 Lurasidone HCl (Latuda) 120 Mg Tablet, 120 MG PO 1800, (Reported) Entered as Reported by: PEREZ HENDERSON on 03/29/20 1200 Lurasidone HCl (Latuda) 40 Mg Tablet, 40 MG PO 1800, (Reported) Entered as Reported by: PEREZ HENDERSON on 03/29/20 1200 Montelukast Sodium (Montelukast Sodium) 10 Mg Tablet, 10 MG PO DAILY, (Reported) Entered as Reported by: PEREZ HENDERSON on 03/29/20 1200 Ondansetron (Ondansetron Odt) 4 Mg Tab.rapdis, 4 MG PO Q6H PRN for NAUSEA/VOMITING Prescribed by: TASH ALARCON on 09/20/20 2318 Phenytoin Sodium Extended (Phenytoin Sodium Extended) 200 Mg Capsule, 200 MG PO BID, (Reported) Entered as Reported by: PEREZ HENDERSON on 03/29/201199 Prednisone (Prednisone) 20 Mg Tab, 40 MG PO DAILY Prescribed by: EMILY DOMÍNGUEZ on 10/03/201913 Quetiapine Fumarate (Quetiapine Fumarate) 100 Mg Tablet, 300 MG PO DAILY, (Reported) Entered as Reported by: PEREZ HENDERSON on 03/29/201199 Rivaroxaban (Xarelto) 20 Mg Tablet, 20 MG PO DAILY, (Reported) Entered as Reported by: PEREZ HENDERSON on 03/29/201199 Topiramate (Topiramate) 100 Mg Tablet, 200 MG PO BID, (Reported) Entered as Reported by: PEREZ HENDERSON on 03/29/201199 Trazodone HCl (Trazodone HCl) 100 Mg Tablet, 200 MG PO HS, (Reported) Entered as Reported by: PEREZ HENDERSON on 03/29/201199 Venlafaxine HCl (Venlafaxine HCl ER) 150 Mg Cap.er.24h, 300 MG PO DAILY, (Reported) Entered as Reported by: PEREZ HENDERSON on 03/29/201199 Review of Systems Review of Systems Constitutional: No chills, No diaphoresis EENTM: No Blurred Vision, No Double Vision Respiratory: Denies Cough, Denies Shortness of Air Cardiovascular: Denies Chest Pain, Denies Lightheadedness Gastrointestinal: Denies See HPI, Denies Abdomen Distended, Denies Abdominal Pain; Constipated; Denies Diarrhea, Denies Nausea, Denies Poor Fluid Intake Genitourinary: Denies Burning Musculoskeletal: No back pain, No joint pain Psychiatric/Neurological: Denies Anxiety, Denies Depressed All Other Systems Reviewed Negative Unless Noted: Yes Past [id number] Hx Patient Social History Tobacco Use?: Yes Tobacco type used: Cigarettes Smoking Status: Current Everyday Smoker Substance use?: No Alcohol Use?: No Pt feels they are or have been: No Immunizations Up To Date Influenza Vaccine Up-to-Date: Yes; Up-to-Date First/Initial COVID19 Vaccinat: September 2020 Second COVID19 Vaccination Magdaleno: October 2020 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: [employer] Seasonal Allergies Seasonal Allergies: No Past Medical History Surgeries: Yes (HIP, suprapubic catheter, Dental) Appendectomy, Gallbladder, Hysterectomy, Orthopedic Respiratory: Yes Asthma, Pneumonia, Chronic Bronchitis, Pulmonary Embolism, COPD, Emphysema Cardiac: Yes (CHF) Neurological: Yes Neuropathy 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 Disorders: No 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 Sexually Transmitted Disease: No HIV/AIDS: No Genitourinary: Yes Kidney Stones, Neurogenic Bladder, UTI-Chronic Gastrointestinal: Yes Abdominal Hernia, Gastroesophageal Reflux, Chronic Constipation, Irritable Bowel Musculoskeletal: Yes Arthritis, Fibromyalgia, Back Injury, Chronic Back Pain, Fractures, Spasms Endocrine: Yes Diabetes, Insulin dep, Hypothyroidsim HEENT: No Hearing Impairment: Hard of Hearing Cancer: Yes Ovarian Psychosocial: Yes ADD/ADHD, Bipolar, Schizophrenia Integumentary: No Blood Disorders: No Family Medical History No Pertinent Family Hx Physical Exam Vital Signs Vital Signs - First Documented 03/08/21 21:00 Temp 36.7 Pulse 93 Resp 18 B/P (MAP) 153/98 (116) Pulse Ox 95 O2 Delivery Room Air Capillary Refill : Less Than 3 Seconds Height/Weight/BMI Height: '" Weight: 275lbs. oz. 124.394221ub; 56.00 BMI Method:Stated General Appearance: WD/WN, no apparent distress HEENT: PERRL/EOMI, pharynx normal Neck: full range of motion, normal inspection Respiratory: no respiratory distress, no accessory muscle use Cardiovascular: normal peripheral pulses, regular rate, rhythm Gastrointestinal: normal bowel sounds, non tender, soft Neurologic/Psychiatric: alert, normal mood/affect, oriented x 3 Skin: normal color, warm/dry Progress/Results/Core Measures Results/Orders Vital Signs/I&O 03/08/21 21:00 Temp 36.7 Pulse 93 Resp 18 B/P (MAP) 153/98 (116) Pulse Ox 95 O2 Delivery Room Air Blood Pressure Mean: 116 Progress Progress Note : Time: 21:22 Progress Note We discussed appropriate use of laxatives and that she is on a maintenance dose given the fact that she is on hydrocodone's every day. We encouraged her to increase her MiraLAX to 3-4 times a day and strip picker enemas and do 1 or 2 a day for the next 2 to 3 days. Return precautions were discussed. She has plenty of nausea medicine. Patient is okay with this plan Departure Impression Primary Impression: Constipation Qualified Codes: K59.03 - Drug induced constipation Disposition: 01 HOME, SELF-CARE Condition: Stable Departure-Patient Inst. Decision time for Depature: 21:23 Referrals: ANA HASSAN APRN (PCP) Primary Care Physician [facility] (Family) Primary Care Physician Patient Instructions: Constipation, Adult (DC) Add. Discharge Instructions: Reduce your use of hydrocodone for the next couple days will help pass stools. Zofran as necessary for nausea or vomiting. Drink lots of fluids. MiraLAX 1 capful in 6 ounces of fluid of your choice 4-6 times a day for the next 3 to 4 days to try to clean out your colon. I also recommend fleets enema once or twice a day for the next 3 days to help move things along. After that you should remain on MiraLAX daily once or twice a day and your Colace/stool softener once or twice a day to maintain regularity while using op iates such as hydrocodone. Promptly return to the ER if you are having fever above 102.5, severe, intractable abdominal pain or severe, intractable nausea and vomiting not allowing you to take any medications despite the Zofran. All discharge instructions reviewed with patient and/or family. Voiced understanding. MAUREEN PARSONS Mar 08, 2021 21:24
[2021-03-08 21:32] VITALS: BP 153/98
== END 2021-03-08 21:32 | disposition home or self-care (01) ==
LOC: EDUNIT# 20:55 → ER FS 20:56
DX: K59.03 Drug induced constipation (principal); T40.2X5A Adverse effect of other opioids, initial encounter; J44.9 Chronic obstructive pulmonary disease, unspecified; I50.9 Heart failure, unspecified; F20.9 Schizophrenia, unspecified; F31.9 Bipolar disorder, unspecified; G89.29 Other chronic pain; M54.9 Dorsalgia, unspecified; E11.9 Type 2 diabetes mellitus without complications; F17.210 Nicotine dependence, cigarettes, uncomplicated; Z86.711 Personal history of pulmonary embolism; Z79.01 Long term (current) use of anticoagulants; Z79.899 Other long term (current) drug therapy; Z79.891 Long term (current) use of opiate analgesic
CPT/HCPCS: 99281

== ENCOUNTER 2021-03-14 19:30 | Emergency (ER) | payer MEDICAID, OTHER ==
[2021-03-14] MEDS ORDERED: RT-ALBUTEROL/IPRATROPIUM 3 ML (DUONEB) VIAL INH STA (19:41)
[2021-03-14] MEDS ORDERED: ONDANSETRON 4 MG/2 ML (SDV) Z0FRAN IVP STA (19:42)
[2021-03-14] MEDS ORDERED: PANTOPRAZOLE 40 MG (PROTONIX) VIAL IV STA (19:42)
[2021-03-14] MEDS ORDERED: KETOROLAC 30 MG/ML VIAL IVP STA (19:42)
[2021-03-14] MEDS ORDERED: ASPIRIN 81 MG CHEW (CHILDREN'S ASA) PO ONE (19:45)
--- NOTE | 2021-03-14 19:52 | ED General ---
General Chief Complaint: Chest Pain Stated Complaint: CP Source of Information: Patient, Old Records, Other (Guard from [facility]) History of Present Illness Date Seen by Provider: Mar 14, 2021 Time Seen by Provider: 19:30 Initial Comments 50-year-old female presenting with complaints of sharp left chest pain and chronic back pain. Pain has been present since at least 6 PM. She was brought from the [facility] by a guard. Pt reports she has not been taking breathing treatments while incarcerated. She has diarrhea with some nausea as well. She denies fall or injury. She denies coughing more than usual. She has no fever or chills. Timing/Duration: 1-3 Hours Severity: Severe Modifying Factors: worse with Movement Associated Systoms: Chest Pain (sharp left chest pains reproducible with palpation), Cough (chronic and no worse than usual); No Diaphoresis, No Fever/Chills, No Headaches, No Malaise; Nausea/Vomiting (nausea but no emesis); No Seizure; Shortness of Air (chronic and no worse than usual) Allergies and Home Medications Allergies Coded Allergies: doxycycline (Unverified Allergy, Mild, nauseated, 08/01/09) spinach (Unverified Allergy, Mild, 08/01/09) alprazolam (Verified Allergy, Unknown, 07/18/19) diazepam (Verified Allergy, Unknown, 07/18/19) sumatriptan (Verified Allergy, Unknown, 07/18/19) Patient Home Medication List Home Medication List Reviewed: Yes Albuterol Sulfate (Ventolin Hfa) 1 Puff Puff, 2 PUFF INH Q4H PRN for COUGH, (Reported) Entered as Reported by: PEREZ HENDERSON on 03/29/20 1200 Albuterol/Ipratropium (Combivent Respimat Inhal [place]) 4 Gm Aero, 2 PUFF IH TID Prescribed by: EMILY DOMÍNGUEZ on 10/03/201913 Amoxicillin/Potassium Clav (Augmentin 875-125 Tablet) 1 Each Tablet, 1 EACH PO BID Prescribed by: EMILY DOMÍNGUEZ on 10/03/201913 Cefdinir (Cefdinir) 300 Mg Capsule, 300 MG PO BID Prescribed by: LEONOR CAMARGO on 03/29/20 1340 Cephalexin (Cephalexin) 500 Mg Capsule, 500 MG PO TID Prescribed by: TASH ALARCON on 02/27/21632 Cephalexin (Cephalexin) 500 Mg Capsule, 500 MG PO QID Prescribed by: TASH HANYART on 03/14/212028 Fluticasone Propionate (Flonase Allergy Relief) 9.9 Ml [place].susp, 1 SPRAY NS DAILY Prescribed by: TASH HANYART on 02/27/21632 Furosemide (Furosemide) 40 Mg Tablet, 40 MG PO BID, (Reported) Entered as Reported by: PEREZ HENDERSON on 03/29/201199 Gabapentin (Gabapentin) 600 Mg Tablet, 1,200 MG PO TID, (Reported) Entered as Reported by: PEREZ HENDERSON on 03/29/201199 Glimepiride (Glimepiride) 2 Mg Tablet, 2 MG PO BID, (Reported) Entered as Reported by: PEREZ HENDERSON on 03/29/201199 Haloperidol (Haloperidol) 10 Mg Tablet, 10 MG PO TID, (Reported) Entered as Reported by: PEREZ HENDERSON on 03/29/201199 Hydrocodone/Acetaminophen (Hydrocodone-Acetamin 5-325 mg) 1 Each Tablet, 1 TAB PO Q6H PRN for PAIN-MODERATE (5-7) Prescribed by: MAUREEN PARSONS on 08/18/20 1653 Hydrocodone/Acetaminophen (Hydrocodone-Acetamin 5-325 mg) 1 Each Tablet, 1 TAB PO Q8H PRN for PAIN-SEVERE (8-10) Prescribed by: TASH HANYART on 12/01/202308 Lurasidone HCl (Latuda) 120 Mg Tablet, 120 MG PO 1800, (Reported) Entered as Reported by: PEREZ HENDERSON on 03/29/201199 Lurasidone HCl (Latuda) 40 Mg Tablet, 40 MG PO 1800, (Reported) Entered as Reported by: PEREZ HENDERSON on 03/29/201199 Montelukast Sodium (Montelukast Sodium) 10 Mg Tablet, 10 MG PO DAILY, (Reported) Entered as Reported by: PEREZ HENDERSON on 03/29/201199 Ondansetron (Ondansetron Odt) 4 Mg Tab.rapdis, 4 MG PO Q6H PRN for NAUSEA/VOMITING Prescribed by: TASH SANDOVALRT on 09/20/202317 Phenytoin Sodium Extended (Phenytoin Sodium Extended) 200 Mg Capsule, 200 MG PO BID, (Reported) Entered as Reported by: PEREZ HENDERSON on 03/29/201199 Prednisone (Prednisone) 20 Mg Tab, 40 MG PO DAILY Prescribed by: EMILY DOMÍNGUEZ on 10/03/201913 Quetiapine Fumarate (Quetiapine Fumarate) 100 Mg Tablet, 300 MG PO DAILY, (Reported) Entered as Reported by: PEREZ HENDERSON on 03/29/201199 Rivaroxaban (Xarelto) 20 Mg Tablet, 20 MG PO DAILY, (Reported) Entered as Reported by: PEREZ HENDERSON on 03/29/201199 Topiramate (Topiramate) 100 Mg Tablet, 200 MG PO BID, (Reported) Entered as Reported by: PEREZ HENDERSON on 03/29/201199 Trazodone HCl (Trazodone HCl) 100 Mg Tablet, 200 MG PO HS, (Reported) Entered as Reported by: PEREZ HENDERSON on 03/29/201199 Venlafaxine HCl (Venlafaxine HCl ER) 150 Mg Cap.er.24h, 300 MG PO DAILY, (Reported) Entered as Reported by: PEREZ HENDERSON on 03/29/201199 Review of Systems Review of Systems Constitutional: No chills, No fever EENTM: no symptoms reported Respiratory: see HPI Cardiovascular: see HPI Gastrointestinal: see HPI Genitourinary: no symptoms reported Musculoskeletal: back pain (chronic pain worse since not taking chronic pain medicine in long term) Skin: no symptoms reported Psychiatric/Neurological: Anxiety Hematologic/Lymphatic: Blood Clots Past Rjojtvl-[id number]-Subdsw Hx Patient Social History Tobacco Use?: Yes Tobacco type used: Cigarettes Smoking Status: Current Everyday Smoker Immunizations Up To Date First/Initial COVID19 Vaccinat: September 2020 Second COVID19 Vaccination Magdaleno: October 2020 Seasonal Allergies Seasonal Allergies: No Past Medical History Surgeries: Yes (HIP, suprapubic catheter, Dental) Appendectomy, Gallbladder, Hysterectomy, Orthopedic Respiratory: Yes Asthma, Pneumonia, Chronic Bronchitis, Pulmonary Embolism, COPD, Emphysema Cardiac: Yes (CHF) Neurological: Yes Neuropathy 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 Disorders: No 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 Sexually Transmitted Disease: No HIV/AIDS: No Genitourinary: Yes Kidney Stones, Neurogenic Bladder, UTI-Chronic Gastrointestinal: Yes Abdominal Hernia, Gastroesophageal Reflux, Chronic Constipation, Irritable Bowel Musculoskeletal: Yes Arthritis, Fibromyalgia, Back Injury, Chronic Back Pain, Fractures, Spasms Endocrine: Yes Diabetes, Insulin dep, Hypothyroidsim HEENT: No Hearing Impairment: Hard of Hearing Cancer: Yes Ovarian Psychosocial: Yes ADD/ADHD, Bipolar, Schizophrenia Integumentary: No Blood Disorders: No Family Medical History No Pertinent Family Hx Physical Exam Vital Signs Vital Signs - First Documented 03/14/21 19:30 Temp 36.1 Pulse 98 Resp 22 B/P (MAP) 120/82 (95) Pulse Ox 94 O2 Delivery Room Air Capillary Refill : Height, Weight, BMI Height: '" Weight: 275lbs. oz. 124.528037oe; 56.00 BMI Method:Stated General Appearance: No Apparent Distress, Obese HEENT: Pharynx Normal (edentulous but no acute process) Neck: Full Range of Motion, Normal Inspection, Non Tender, Supple Respiratory: No Accessory Muscle Use, No Respiratory Distress, Decreased Breath Sounds, Other (tender to palpation of left chest wall. 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 Norm as Tested Skin: Warm/Dry Progress/Results/Core Measures Suspected Sepsis SIRS Temperature: Pulse: Respiratory Rate: Laboratory Tests 03/14/21 19:43: White Blood Count 18.9H Blood Pressure / Mean: Laboratory Tests 03/14/21 19:43: Creatinine 0.55L, INR Comment 1.0, Platelet Count 270, Total Bilirubin 0.5 Results/Orders Lab Results Laboratory Tests Test 03/14/21 19:43 03/14/21 19:53 Range/Units White Blood Count 18.9 H 4.3-11.0 10^3/uL Red Blood Count 4.03 3.80-5.11 10^6/uL Hemoglobin 14.1 11.5-16.0 g/dL Hematocrit 40 35-52 % Mean Corpuscular Volume 100 H 80-99 fL Mean Corpuscular Hemoglobin 35 H 25-34 pg Mean Corpuscular Hemoglobin Concent 35 32-36 g/dL Red Cell Distribution Width 16.4 H 10.0-14.5 % Platelet Count 270 130-400 10^3/uL Mean Platelet Volume 9.1 9.0-12.2 fL Immature Granulocyte % (Auto) 1 % Neutrophils (%) (Auto) 87 H 42-75 % Lymphocytes (%) (Auto) 7 L 12-44 % Monocytes (%) (Auto) 5 0-12 % Eosinophils (%) (Auto) 0 0-10 % Basophils (%) (Auto) 0 0-10 % Neutrophils # (Auto) 16.4 H 1.8-7.8 X 10^3 Lymphocytes # (Auto) 1.3 1.0-4.0 X 10^3 Monocytes # (Auto) 1.0 0.0-1.0 X 10^3 Eosinophils # (Auto) 0.0 0.0-0.3 10^3/uL Basophils # (Auto) 0.1 0.0-0.1 10^3/uL Immature Granulocyte # (Auto) 0.2 H 0.0-0.1 10^3/uL Neutrophils % (Manual) 80 % Lymphocytes % (Manual) 5 % Monocytes % (Manual) 7 % Band Neutrophils 5 % Atypical Lymphocytes 3 % Blood Morphology Comment NORMAL Prothrombin Time 13.4 12.2-14.7 SEC INR Comment 1.0 0.8-1.4 Activated Partial Thromboplast Time 38 H 24-35 SEC Sodium Level 129 L 135-145 MMOL/L Potassium Level 3.6 3.6-5.0 MMOL/L Chloride Level 90 L 98-107 MMOL/L Carbon Dioxide Level 25 21-32 MMOL/L Anion Gap 14 5-14 MMOL/L Blood Urea Nitrogen 6 L 7-18 MG/DL Creatinine 0.55 L 0.60-1.30 MG/DL Estimat Glomerular Filtration Rate 118 BUN/Creatinine Ratio 11 Glucose Level 165 H 70-105 MG/DL Calcium Level 9.2 8.5-10.1 MG/DL Corrected Calcium 9.0 8.5-10.1 MG/DL Magnesium Level 1.9 1.6-2.4 MG/DL Total Bilirubin 0.5 0.1-1.0 MG/DL Aspartate Amino Transf (AST/SGOT) 10 5-34 U/L Alanine Aminotransferase (ALT/SGPT) 10 0-55 U/L Alkaline Phosphatase 177 H 40-136 U/L Troponin I < 0.30 <0.30 NG/ML Pro-B-Type Natriuretic Peptide 149.1 H <75.0 PG/ML Total Protein 7.5 6.4-8.2 GM/DL Albumin 4.2 3.2-4.5 GM/DL Lipase 24 8-78 U/L Urine Color YELLOW Urine Clarity SL CLOUDY Urine pH 8.0 5-9 Urine Specific [place] 1.010 L 1.016-1.022 Urine Protein NEGATIVE NEGATIVE Urine Glucose (UA) NEGATIVE NEGATIVE Urine Ketones NEGATIVE NEGATIVE Urine Nitrite POSITIVE H NEGATIVE Urine Bilirubin NEGATIVE NEGATIVE Urine Urobilinogen 4.0 < = 1.0 MG/DL Urine Leukocyte Esterase 1+ H NEGATIVE Urine RBC (Auto) NEGATIVE NEGATIVE Urine RBC 0-2 /HPF Urine WBC 25-50 H /HPF Urine Squamous Epithelial Cells 2-5 /HPF Urine Crystals NONE /LPF Urine Bacteria LARGE H /HPF Urine Casts NONE /LPF Urine Mucus NEGATIVE /LPF Urine Culture Indicated YES Urine Opiates Screen NEGATIVE NEGATIVE Urine Oxycodone Screen NEGATIVE NEGATIVE Urine Methadone Screen NEGATIVE NEGATIVE Urine Propoxyphene Screen NEGATIVE NEGATIVE Urine Barbiturates Screen NEGATIVE NEGATIVE Ur Tricyclic Antidepressants Screen NEGATIVE NEGATIVE Urine Phencyclidine Screen NEGATIVE NEGATIVE Urine Amphetamines Screen NEGATIVE NEGATIVE Urine Methamphetamines Screen NEGATIVE NEGATIVE Urine Benzodiazepines Screen NEGATIVE NEGATIVE Urine Cocaine Screen NEGATIVE NEGATIVE Urine Cannabinoids Screen POSITIVE H NEGATIVE My Orders Orders - TASH ALARCON MD Cbc With Automated Diff (03/14/21:40) Magnesium (03/14/21:40) Chest 1 View Ap/Pa Only (03/14/21:40) Ekg Tracing (03/14/21:40) Comprehensive Metabolic Panel (03/14/21:40) Protime With Inr (03/14/21:40) Partial Thromboplastin Time (03/14/21:40) O2 (03/14/21:40) Monitor-Rhythm Ecg Trace Only (03/14/21:40) Aspirin Chewable Tablet (Baby Aspirin Ch (03/14/21 19:45) Ed Iv/Invasive Line Start (03/14/21:40) Lipase (03/14/21:40) Troponin I Fs (03/14/21 19:40) Probnp Fs (03/14/21 19:40) Ua Culture If Indicated (03/14/21:40) Albuterol/Ipra Inhalation Soln (Duoneb I (03/14/21 19:41) Svn Small Volume Nebulizer (03/14/21 19:41) Ketorolac Injection (Toradol Injection) (03/14/21 19:42) Pantoprazole Injection (Protonix Injecti (03/14/21 19:42) Ondansetron Injection (Zofran Injectio (03/14/21 19:42) Drug Screen Stat (Urine) (03/14/21 19:46) Manual Differential (03/14/21 19:43) Urine Culture (03/14/21 19:53) Ceftriaxone (Rocephin) (03/14/21 20:22) Orphenadrine Inj (Ed Only) (Norflex Inje (03/14/21 20:22) Medications Given in ED Current Medications Medications Dose Ordered Sig/Kurtis Route Start Time Stop Time Status Last Admin Dose Admin Aspirin 324 mg ONCE ONCE PO 03/14/21 19:45 03/14/21 19:46 DC 03/14/21 19:55 324 MG Vital Signs/I&O 03/14/21 03/14/21 19:30 20:41 Temp 36.1 Pulse 98 99 Resp 22 18 B/P (MAP) 120/82 (95) 145/88 Pulse Ox 94 93 O2 Delivery Room Air Room Air Capillary Refill : Progress Note #1: Progress Note Check basic labs as well as electrocardiogram and chest x-ray. Try dose of Toradol along with aspirin for her pain. Zofran for nausea. Protonix for epigastric pain and nausea. Progress Note #2: Time: 20:07 Progress Note No acute changes on ECG appears stable from 2019. She has no acute process in chest on 1 view CXR. CBC shows elevated WBC which is chronically elevated. UA shows signs of UTI with nit, bacteria, LE and WBC. 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 Treat UTI with Rocephin based off last culture at end of February her E. Coli seen then was sensitive to everything but Bactrim. Give Norflex for a muscle relaxer here in ED to help with chest wall pain. Encouraged to try Immodium for diarrhea. Check back with clinic and long term staff for continued concerns. Restart all regular medicines when released from [facility], which she hopes will be tomorrow. Restarting chronic pain medicine will help her chronic back pain and chest muscle pain. ECG Initial ECG Impression Date: Mar 14, 2021 Initial ECG Impression Time: 19:35 Initial ECG Rate: 94 Initial ECG Rhythm: Normal Sinus Initial ECG Comparisson: Unchanged Comment Normal sinus rhythm with a heart rate of 94 bpm. SD interval [address] elevation. QT interval 378 ms with a QTc interval 473 ms. This appears similar to prior tracing in the system. Diagnostic Imaging Diagonstic Imaging: Xray Plain Films/CT/US/NM/MRI: chest Comments NAME: JERALD VELAZQUEZ [facility] REC#: [id number] PT STATUS: REG ER : 1970 PHYSICIAN: TASH ALARCON MD ADMIT DATE: 03/14/21/ER FS Draft Date of Exam:03/14/21 CHEST 1 VIEW AP/PA ONLY INDICATION: Chest pain and cough. COMPARISON: 12/29/2020. FINDINGS: The heart size, mediastinal configuration, and pulmonary vascularity are within normal limits. There is no pleural effusion, pneumothorax, or pneumonia. The osseous structures are unremarkable. IMPRESSION: No acute cardiopulmonary abnormality. Dictated on workstation # [id number] Dict: 03/14/211955 Trans: 03/14/211999 [facility] [id number] Interpreted by: ALEXA CRONIN MD Electronically signed by: Reviewed: Reviewed by Me Departure Impression Primary Impression: Left-sided chest pain Additional Impressions: Chest wall pain Acute cystitis without hematuria Diarrhea Qualified Codes: R19.7 - Diarrhea, unspecified Disposition: 21 DIS/X[address]/[facility] (Back to [facility]) Condition: Stable Departure-Patient Inst. Decision time for Depature: 20:39 Referrals: ANA HASSAN APRN (PCP) Primary Care Physician [facility] (Family) Primary Care Physician Patient Instructions: Chest Pain, Adult ED, Costochondritis (DC), Diarrhea, Adult ED, Urinary Tract Infection, Adult ED Add. Discharge Instructions: Medically stable to return to [facility]. Take antibiotic for urine infection. Work with staff at the long term and your family to get back on your regular medicines and inhalers. Consider some Imodium for Diarrhea. Check back with clinic for continued symptoms/concerns. All discharge instructions reviewed with patient and/or family. Voiced understanding. Scripts Cephalexin (Cephalexin) 500 Mg Capsule 500 MG PO QID for UTI for 10 Days, #40 CAP Prov: TASH ALARCON MD 03/14/21 TASH ALARCON MD Mar 14, 2021 19:52
[2021-03-14 19:58] LABS: BILIRUBIN,URINE NEGATIVE (NEGATIVE); CLARITY,URINE SL CLOUDY; COLOR,URINE YELLOW; GLUCOSE, URINE (UA) NEGATIVE (NEGATIVE); KETONES,URINE NEGATIVE (NEGATIVE); LEUKOCYTE ESTERASE ,URINE 1+ (NEGATIVE); NITRITE,URINE POSITIVE (NEGATIVE); PROTEIN,URINE NEGATIVE (NEGATIVE)
--- NOTE | 2021-03-14 20:01 | Diagnostic Imaging Report ---
INDICATION: Chest pain and cough. COMPARISON: 12/29/2020. FINDINGS: The heart size, mediastinal configuration, and pulmonary vascularity are within normal limits. There is no pleural effusion, pneumothorax, or pneumonia. The osseous structures are unremarkable. IMPRESSION: No acute cardiopulmonary abnormality. Dictated by: Dictated on workstation # [id number]
[2021-03-14 20:02] LABS: HEMOGLOBIN 14.1 g/dL (11.5-16.0); MEAN CORPUSCULAR HEMOGLOBIN 35 pg (25-34); WHITE BLOOD COUNT 18.9 10^3/uL (4.3-11.0)
[2021-03-14 20:03] LABS: BASOPHILS # (AUTO) 0.1 10^3/uL (0.0-0.1); BASOPHILS % (AUTO) 0 % (0-10); EOSINOPHILS % (AUTO) 0 % (0-10); HEMATOCRIT 40 % (35-52); LYMPHOCYTES # (AUTO) 1.3 X 10^3 (1.0-4.0); LYMPHOCYTES % (AUTO) 7 % (12-44); MEAN CORPUSCULAR HGB CONC 35 g/dL (32-36); MEAN CORPUSCULAR VOLUME 100 fL (80-99); MEAN PLATELET VOLUME 9.1 fL (9.0-12.2); MONOCYTES % (AUTO) 5 % (0-12); NEUTROPHILS # (AUTO) 16.4 X 10^3 (1.8-7.8); NEUTROPHILS % (AUTO) 87 % (42-75); PLATELET COUNT 270 10^3/uL (130-400)
[2021-03-14 20:04] LABS: BACTERIA,URINE LARGE /HPF; RBC,URINE 0-2 /HPF; WBC,URINE 25-50 /HPF
[2021-03-14 20:07] LABS: PROTHROMBIN TIME PATIENT 13.4 SEC (12.2-14.7)
[2021-03-14 20:09] LABS: AMPHETAMINE SCREEN, URINE NEGATIVE (NEGATIVE); BARBITURATE SCREEN URINE NEGATIVE (NEGATIVE); BENZODIAZEPINES SCREEN URINE NEGATIVE (NEGATIVE); CANNABINOID SCREEN, URINE POSITIVE (NEGATIVE); COCAINE SCREEN URINE NEGATIVE (NEGATIVE); METHADONE STAT NEGATIVE (NEGATIVE); METHAMPHETAMINE SCREEN URINE S NEGATIVE (NEGATIVE); OPIATE SCREEN URINE NEGATIVE (NEGATIVE); OXYCODONE STAT NEGATIVE (NEGATIVE); PROPOXYPHENE STAT NEGATIVE (NEGATIVE); TRICYCLIC ANTIDEPRESSANTS SCRE NEGATIVE (NEGATIVE)
[2021-03-14 20:14] LABS: ATYPICAL LYMPHOCYTES 3 %; BAND NEUTROPHILS 5 %; LYMPHOCYTES % (MANUAL) 5 %; MONOCYTES % (MANUAL) 7 %; NEUTROPHILS % (MANUAL) 80 %; RBC MORPH NORMAL
[2021-03-14 20:18] LABS: ALBUMIN 4.2 GM/DL (3.2-4.5); BILIRUBIN,TOTAL 0.5 MG/DL (0.1-1.0); CALCIUM 9.2 MG/DL (8.5-10.1); CREATININE SERUM 0.55 MG/DL (0.60-1.30); MAGNESIUM 1.9 MG/DL (1.6-2.4); POTASSIUM 3.6 MMOL/L (3.6-5.0); TOTAL PROTEIN 7.5 GM/DL (6.4-8.2)
[2021-03-14] MEDS ORDERED: cefTRIAXone 1,000 MG in WATER (STERILE) FOR INJECTION 10 ML IV STA (20:22)
[2021-03-14] MEDS ORDERED: ORPHENADRINE 60 MG/2 ML (NORFLEX) AMP (ED ONLY) IVP STA (20:22)
[2021-03-14] MEDS ORDERED: CEPH500C PO (20:29)
[2021-03-14 20:41] VITALS: BP 145/88
== END 2021-03-14 20:42 ==
LOC: EDUNIT# 19:30 → ER FS 19:31
DX: R07.89 Other chest pain (principal); N30.01 Acute cystitis with hematuria; R19.7 Diarrhea, unspecified; E66.9 Obesity, unspecified; J44.9 Chronic obstructive pulmonary disease, unspecified; I50.9 Heart failure, unspecified; F20.9 Schizophrenia, unspecified; F31.9 Bipolar disorder, unspecified; E11.9 Type 2 diabetes mellitus without complications; G89.29 Other chronic pain; M54.9 Dorsalgia, unspecified; F17.210 Nicotine dependence, cigarettes, uncomplicated; Z86.711 Personal history of pulmonary embolism; Z68.43 Body mass index [BMI] 50.0-59.9, adult; Z79.01 Long term (current) use of anticoagulants; Z79.52 Long term (current) use of systemic steroids; Z79.899 Other long term (current) drug therapy; Z79.891 Long term (current) use of opiate analgesic
CPT/HCPCS: 36415; 71045; 80053; 80306; 81000; 83690; 83735; 83880; 84484; 85007; 85027; 85610; 85730; 87077; 87088; 87186; 93005; 93041

== ENCOUNTER → 2021-03-31 | Outpatient (CLI) | payer MEDICAID ==
--- NOTE | 2021-03-31 09:44 | Diagnostic Imaging Report ---
INDICATION: Contusion of the right wrist COMPARISON: 08/18/2020 TECHNIQUE: 3 radiographs of the right wrist dated 03/23/2021 FINDINGS: Interval healing of previously noted distal radial fracture with persistent and stable apex posterior angulation with resulting volar tilt. Interval healing of previously noted ulnar styloid fracture. No new fracture or dislocation. No destructive osseous process. Mild scattered degenerative changes are present. No suspicious radiopaque foreign body. Slight widening of the distal radioulnar joint with associated ulnar positive configuration. IMPRESSION: Interval healing of previously noted distal radial fracture with persistent angulation and persistent volar tilt. Interval healing of previously noted ulnar styloid fracture Widening of the distal radial ulnar joint with associated ulnar positive configuration of the wrist. Dictated by: Dictated on workstation # [id number]
== END ==
LOC: RAD FS 08:55
PROVIDERS: ATTEND Nurse Practitioner
DX: S52.501D Unspecified fracture of the lower end of right radius, subsequent encounter for closed fracture with routine healing (principal); S52.611D Displaced fracture of right ulna styloid process, subsequent encounter for closed fracture with routine healing; S60.211D Contusion of right wrist, subsequent encounter; X58.XXXD Exposure to other specified factors, subsequent encounter
CPT/HCPCS: 73110

== ENCOUNTER 2021-06-14 12:14 | Emergency (ER) | payer MEDICAID ==
[~2021-06-14 12:14] MED LIST changes: +CYCL10TA25 PO; -CYCL10TA9 PO; +MONT-40 PO; -MONT10TA32 PO
[2021-06-14] MEDS ORDERED: KCL 10 MEQ TAB (MICRO K) PO ONE (12:30)
[2021-06-14] MEDS ORDERED: NS IV 500 ML 500 ML IV ONE (12:30)
[2021-06-14 12:38] LABS: HEMATOCRIT 44 % (35-52); HEMOGLOBIN 15.4 g/dL (11.5-16.0); MEAN CORPUSCULAR HEMOGLOBIN 34 pg (25-34); MEAN CORPUSCULAR HGB CONC 35 g/dL (32-36); MEAN CORPUSCULAR VOLUME 98 fL (80-99); MEAN PLATELET VOLUME 10.7 fL (9.0-12.2); PLATELET COUNT 201 10^3/uL (130-400); WHITE BLOOD COUNT 6.5 10^3/uL (4.3-11.0)
--- NOTE | 2021-06-14 12:38 | ED General ---
General Chief Complaint: General Problems/Pain Stated Complaint: LOW CALCIUM Source of Information: Patient Exam Limitations: No Limitations History of Present Illness Date Seen by Provider: Jun 14, 2021 Time Seen by Provider: 12:23 Initial Comments Here with report of low potassium and low sodium per lab that was done through [facility] yesterday. Sodium was 124 and potassium was 2.9. Calcium was normal. Patient states that she has had decreased appetite over the last 5 days. She was apparently seen at [facility] yesterday and today. She is vaccinated for COVID-19 but has not had booster. She denies any contact with COVID-19 but has not been tested recently. She did get flu vaccination. Denies diarrhea or dysuria. Does have chronic breathing problems but does still smoke. She is chronically on oxygen. She arrived without oxygen as she has no transportable oxygen supply but does have a concentrator at home. She states that she has been staying on her typical 2 to 3 L. Timing/Duration: 5-6 Days Severity: Mild, Moderate Associated Systoms: Cough (Chronic); No Fever/Chills; Loss of Appetite; No Nausea/Vomiting; Shortness of Air (Chronic), Weakness (Chronic) Allergies and Home Medications Allergies Coded Allergies: doxycycline (Unverified Allergy, Mild, nauseated, 08/01/09) spinach (Unverified Allergy, Mild, 08/01/09) alprazolam (Verified Allergy, Unknown, 07/18/19) diazepam (Verified Allergy, Unknown, 07/18/19) sumatriptan (Verified Allergy, Unknown, 07/18/19) Patient Home Medication List Home Medication List Reviewed: Yes Albuterol Sulfate (Ventolin Hfa) 1 Puff Puff, 2 PUFF INH Q4H PRN for COUGH, (Reported) Entered as Reported by: PEREZ HENDEROSN on 03/29/20 1200 Albuterol/Ipratropium (Combivent Respimat Inhal Amber) 4 Gm Aero, 2 PUFF IH TID Prescribed by: EMILY DOMÍNGUEZ on 10/03/201913 Amoxicillin/Potassium Clav (Augmentin 875-125 Tablet) 1 Each Tablet, 1 EACH PO BID Prescribed by: EMILY DOMÍNGUEZ on 10/03/201913 Cefdinir (Cefdinir) 300 Mg Capsule, 300 MG PO BID Prescribed by: LEONOR CAMARGO on 03/29/20 1340 Cephalexin (Cephalexin) 500 Mg Capsule, 500 MG PO TID Prescribed by: TASH ALARCON on 02/27/21 06 Cephalexin (Cephalexin) 500 Mg Capsule, 500 MG PO QID Prescribed by: TASH ALARCON on 03/14/212028 Fluticasone Propionate (Flonase Allergy Relief) 9.9 Ml Amber.susp, 1 SPRAY NS DAILY Prescribed by: TASH ALARCON on 02/27/21632 Furosemide (Furosemide) 40 Mg Tablet, 40 MG PO BID, (Reported) Entered as Reported by: PEREZ HENDERSON on 03/29/20 1200 Gabapentin (Gabapentin) 600 Mg Tablet, 1,200 MG PO TID, (Reported) Entered as Reported by: PEREZ HENDERSON on 03/29/20 1200 Glimepiride (Glimepiride) 2 Mg Tablet, 2 MG PO BID, (Reported) Entered as Reported by: PEREZ HENDERSON on 03/29/20 1200 Haloperidol (Haloperidol) 10 Mg Tablet, 10 MG PO TID, (Reported) Entered as Reported by: PEREZ HENDERSON on 03/29/20 1200 Hydrocodone/Acetaminophen (Hydrocodone-Acetamin 5-325 mg) 1 Each Tablet, 1 TAB PO Q6H PRN for PAIN-MODERATE (5-7) Prescribed by: MAUREEN PARSONS on 08/18/20 1653 Hydrocodone/Acetaminophen (Hydrocodone-Acetamin 5-325 mg) 1 Each Tablet, 1 TAB PO Q8H PRN for PAIN-SEVERE (8-10) Prescribed by: TASH ALARCON on 12/01/20 2309 Lurasidone HCl (Latuda) 120 Mg Tablet, 120 MG PO 1800, (Reported) Entered as Reported by: PEREZ HENDERSON on 03/29/20 1200 Lurasidone HCl (Latuda) 40 Mg Tablet, 40 MG PO 1800, (Reported) Entered as Reported by: PEREZ HENDERSON on 03/29/20 1200 Montelukast Sodium (Montelukast Sodium) 10 Mg Tablet, 10 MG PO DAILY, (Reported) Entered as Reported by: PEREZ HENDERSON on 03/29/20 1200 Ondansetron (Ondansetron Odt) 4 Mg Tab.rapdis, 4 MG PO Q6H PRN for NAUSEA/VOMITING Prescribed by: TASH ALARCON on 09/20/20 2318 Phenytoin Sodium Extended (Phenytoin Sodium Extended) 200 Mg Capsule, 200 MG PO BID, (Reported) Entered as Reported by: PEREZ HENDERSON on 03/29/20 1200 Potassium Chloride (Potassium Chloride) 20 Meq Tablet.er, 20 MEQ PO DAILY Prescribed by: RADHA ESPINOZA on 06/14/21 1315 Prednisone (Prednisone) 20 Mg Tab, 40 MG PO DAILY Prescribed by: EMILY DOMÍNGUEZ on 10/03/20 191 Quetiapine Fumarate (Quetiapine Fumarate) 100 Mg Tablet, 300 MG PO DAILY, (Reported) Entered as Reported by: PEREZ HENDERSON on 03/29/201199 Rivaroxaban (Xarelto) 20 Mg Tablet, 20 MG PO DAILY, (Reported) Entered as Reported by: PEREZ HENDERSON on 03/29/201199 Topiramate (Topiramate) 100 Mg Tablet, 200 MG PO BID, (Reported) Entered as Reported by: PEREZ HENDERSON on 03/29/201199 Trazodone HCl (Trazodone HCl) 100 Mg Tablet, 200 MG PO HS, (Reported) Entered as Reported by: PEREZ HENDERSON on 03/29/201199 Venlafaxine HCl (Venlafaxine HCl ER) 150 Mg Cap.er.24h, 300 MG PO DAILY, (Reported) Entered as Reported by: PEREZ HENDERSON on 03/29/201199 Review of Systems Review of Systems Constitutional: No chills, No fever EENTM: No nose congestion, No throat pain Respiratory: cough, short of breath Cardiovascular: No chest pain; edema Gastrointestinal: No abdominal pain; loss of appetite; No nausea, No vomiting Genitourinary: no symptoms reported All Other Systems Reviewed Negative Unless Noted: Yes Past Tyjivto-Geahhd-Jvcbvb Hx Patient Social History Tobacco Use?: No Use of E-Cig and/or Vaping dev: No Substance use?: No Alcohol Use?: No Pt feels they are or have been: No Immunizations Up To Date First/Initial COVID19 Vaccinat: Unknown Second COVID19 Vaccination Magdaleno: Unknow Seasonal Allergies Seasonal Allergies: No Past Medical History Surgery/Hospitalization HX: Mood disorder; COPD; Neuropathy; Frequent falls Surgeries: Yes (HIP, suprapubic catheter, Dental) Appendectomy, Gallbladder, Hysterectomy, Orthopedic Respiratory: Yes Asthma, Pneumonia, Chronic Bronchitis, Pulmonary Embolism, COPD, Emphysema Cardiac: Yes (CHF) Neurological: Yes Neuropathy 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 Disorders: No 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 REFUND SPECIALIST History: Hysterectomy Sexually Transmitted Disease: No HIV/AIDS: No Genitourinary: Yes Kidney Stones, Neurogenic Bladder, UTI-Chronic Gastrointestinal: Yes Abdominal Hernia, Gastroesophageal Reflux, Chronic Constipation, Irritable Bowel Musculoskeletal: Yes Arthritis, Fibromyalgia, Back Injury, Chronic Back Pain, Fractures, Spasms Endocrine: Yes Diabetes, Insulin dep, Hypothyroidsim HEENT: No Hearing Impairment: Hard of Hearing Cancer: Yes Ovarian Psychosocial: Yes ADD/ADHD, Bipolar, Schizophrenia Integumentary: No Blood Disorders: No Family Medical History Reviewed Nursing Family Hx No Pertinent Family Hx Physical Exam Vital Signs Vital Signs - First Documented 06/14/21 12:38 Temp 36.2 Pulse 94 Resp 20 B/P (MAP) 127/85 (99) Pulse Ox 94 O2 Delivery Nasal Cannula O2 Flow Rate 2.00 Capillary Refill : Height, Weight, BMI Height: '" Weight: 275lbs. oz. 124.333277hh; 56.00 BMI Method:Stated General Appearance: No Apparent Distress, WD/WN HEENT: PERRL/EOMI Neck: Non Tender, Supple Respiratory: Chest Non Tender, Crackles, Wheezing Cardiovascular: Regular Rate, Rhythm, No Murmur Gastrointestinal: Non Tender, Soft Back: Normal Inspection, No CVA Tenderness, No Vertebral Tenderness Extremity: Normal Range of Motion, Non Tender Neurologic/Psychiatric: Alert, Oriented x3 Skin: Normal Color, Warm/Dry Progress/Results/Core Measures Suspected Sepsis SIRS Temperature: Pulse: Respiratory Rate: Laboratory Tests 06/14/21 12:32: White Blood Count 6.5 Blood Pressure / Mean: Laboratory Tests 06/14/21 12:32: Creatinine 0.59L, Platelet Count 201 Results/Orders Lab Results Laboratory Tests Test 06/14/21 12:32 Range/Units White Blood Count 6.5 4.3-11.0 10^3/uL Red Blood Count 4.51 3.80-5.11 10^6/uL Hemoglobin 15.4 11.5-16.0 g/dL Hematocrit 44 35-52 % Mean Corpuscular Volume 98 80-99 fL Mean Corpuscular Hemoglobin 34 25-34 pg Mean Corpuscular Hemoglobin Concent 35 32-36 g/dL Red Cell Distribution Width 14.0 10.0-14.5 % Platelet Count 201 130-400 10^3/uL Mean Platelet Volume 10.7 9.0-12.2 fL Neutrophils (%) (Auto) 74 42-75 % Lymphocytes (%) (Auto) 17 12-44 % Monocytes (%) (Auto) 9 0-12 % Eosinophils (%) (Auto) 1 0-10 % Basophils (%) (Auto) 1 0-10 % Neutrophils # (Auto) 4.8 1.8-7.8 X 10^3 Lymphocytes # (Auto) 1.1 1.0-4.0 X 10^3 Monocytes # (Auto) 0.6 0.0-1.0 X 10^3 Eosinophils # (Auto) 0.0 0.0-0.3 10^3/uL Basophils # (Auto) 0.0 0.0-0.1 10^3/uL Sodium Level 128 L 135-145 MMOL/L Potassium Level 2.8 L 3.6-5.0 MMOL/L Chloride Level 90 L 98-107 MMOL/L Carbon Dioxide Level 27 21-32 MMOL/L Anion Gap 11 5-14 MMOL/L Blood Urea Nitrogen 4 L 7-18 MG/DL Creatinine 0.59 L 0.60-1.30 MG/DL Estimat Glomerular Filtration Rate 108 BUN/Creatinine Ratio 7 Glucose Level 153 H 70-105 MG/DL Calcium Level 8.8 8.5-10.1 MG/DL C-Reactive Protein 2.34 H <0.50 MG/DL My Orders Orders - RADHA ESPNIOZA MD Basic Metabolic Panel (06/14/21 12:19) Ed Iv/Invasive Line Start (06/14/21 12:22) Ns Iv 500 Ml (Sodium Chloride 0.9%) (06/14/21 12:30) Cbc With Automated Diff (06/14/21 12:22) Crp Fs (06/14/21 12:22) Potassium Chloride (Tablet) (Klor Con Ta (06/14/21 12:30) Medications Given in ED Current Medications Medications Dose Ordered Sig/Kurtis Route Start Time Stop Time Status Last Admin Dose Admin Potassium Chloride 40 meq ONCE ONCE PO 06/14/21 12:30 06/14/21 12:31 DC 1/11/22 12:34 40 MEQ Sodium Chloride 500 ml @ 0 mls/hr Q0M ONCE IV 06/14/21 12:30 06/14/21 12:31 DC 06/14/21 12:34 0 MLS/HR Vital Signs/I&O 06/14/21 06/14/21 12:38 13:08 Temp 36.2 36.2 Pulse 94 82 Resp 20 20 B/P (MAP) 127/85 (99) 132/78 Pulse Ox 94 97 O2 Delivery Nasal Cannula Nasal Cannula O2 Flow Rate 2.00 2.00 2.00 Capillary Refill : Progress Note : Progress Note Seen and evaluated. IV with normal saline 500 mL bolus ordered. Potassium 40 mEq p.o. ordered. Patient has at home COVID test kit and we will use that to verify current COVID status. Monitor patient. 1315: Patient's at home test kit is actually positive. Potassium and sodium are a little better today. CBC is negative. I think she is safe for home. I did instruct her to use the sports drinks versus free water and we will prescribe short course of potassium and she can follow-up in the clinic for recheck. We have also established appointment with [facility] for confirmatory testing for COVID on 04/16 at 0940. There is no [facility] available monoclonal antibody or oral antiviral therapy available currently. This was discussed with the patient. Discharged home with return precautions including COVID precautions. Patient verbalized understandi ng of instructions and agreement with plan. Departure Impression Primary Impression: Hypokalemia Additional Impressions: Hyponatremia COVID-19 virus infection Disposition: HOME, SELF-CARE Condition: Improved Departure-Patient Inst. Decision time for Depature: 13:09 Referrals: ANA HASSAN APRN (PCP) Primary Care Physician [facility] (Family) Primary Care Physician Patient Instructions: Hypokalemia (DC), Hyponatremia (DC), COVID-19 Overview Add. Discharge Instructions: All discharge instructions reviewed with patient and/or family. Voiced understanding. Drink sports drinks such as Gatorade or Powerade. You may water those down a little bit so they are not too sweet but this will help with your electrolytes. Take medications as prescribed. Follow-up early next week for recheck and further evaluation at the clinic and for recheck of your labs. Call for appointment. You do have appointment on 04/16/2022 at 0940 at the clinic for confirmatory COVID-19 testing. Please do not miss this appointment. Monitor your oxygen saturations while resting on your normal home O2 and return for O2 saturation 90% or below on your oxygen. Since there are concerns for COVID-19, you should remain in isolation at home and wear mask around others. Notify home contacts of COVID concerns and exposure. 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 Return for worse pain, fever, vomiting, weakness, breathing problems or other concerns as needed. Scripts Potassium Chloride (Potassium Chloride) 20 Meq Tablet.er 20 MEQ PO DAILY for 7 Days, #7 TAB Prov: RADHA ESPINOZA MD 06/14/21 Copy Copies To 1: LEONOR CAMARGO MD, TIMOTHY D MD Jun 14, 2021 12:38
[2021-06-14 12:39] LABS: BASOPHILS % (AUTO) 1 % (0-10); EOSINOPHILS % (AUTO) 1 % (0-10); LYMPHOCYTES # (AUTO) 1.1 X 10^3 (1.0-4.0); LYMPHOCYTES % (AUTO) 17 % (12-44); MONOCYTES # (AUTO) 0.6 X 10^3 (0.0-1.0); MONOCYTES % (AUTO) 9 % (0-12); NEUTROPHILS # (AUTO) 4.8 X 10^3 (1.8-7.8); NEUTROPHILS % (AUTO) 74 % (42-75)
[2021-06-14 13:00] LABS: CALCIUM 8.8 MG/DL (8.5-10.1); POTASSIUM 2.8 MMOL/L (3.6-5.0)
[2021-06-14 13:02] LABS: CREATININE SERUM 0.59 MG/DL (0.60-1.30)
[2021-06-14 13:08] VITALS: BP 132/78
[2021-06-14] MEDS ORDERED: POTA-51 PO (13:15)
== END 2021-06-14 13:30 | disposition home or self-care (01) ==
LOC: EDUNIT# 12:14 → ER FS 12:17
DX: U07.1 COVID-19 (principal); E87.6 Hypokalemia; E87.1 Hypo-osmolality and hyponatremia; J44.9 Chronic obstructive pulmonary disease, unspecified; I50.9 Heart failure, unspecified; F31.9 Bipolar disorder, unspecified; F20.9 Schizophrenia, unspecified; G89.29 Other chronic pain; M54.9 Dorsalgia, unspecified; E11.9 Type 2 diabetes mellitus without complications; Z86.711 Personal history of pulmonary embolism; Z79.01 Long term (current) use of anticoagulants; Z79.899 Other long term (current) drug therapy; Z79.891 Long term (current) use of opiate analgesic
CPT/HCPCS: 36415; 80048; 85025; 86141

== ENCOUNTER 2021-06-29 20:32 | Emergency (ER) | payer MEDICAID ==
[~2021-06-29] VITALS: Ht 157 cm; Wt 140.0 kg
[~2021-06-29 20:32] MED LIST changes: +POTA-51 PO
[2021-06-29] MEDS ORDERED: KETOROLAC 30 MG/ML VIAL IVP STA (20:50)
[2021-06-29] MEDS ORDERED: fentaNYL INJ 100 MCG/2 ML AMP IVP STA (20:50)
[2021-06-29 21:00] LABS: BASOPHILS % (AUTO) 0 % (0-10); EOSINOPHILS # (AUTO) 0.2 10^3/uL (0.0-0.3); EOSINOPHILS % (AUTO) 1 % (0-10); HEMATOCRIT 41 % (35-52); HEMOGLOBIN 13.6 g/dL (11.5-16.0); LYMPHOCYTES # (AUTO) 2.5 10^3/uL (1.0-4.0); LYMPHOCYTES % (AUTO) 22 % (12-44); MEAN CORPUSCULAR HEMOGLOBIN 34 pg (25-34); MEAN CORPUSCULAR HGB CONC 34 g/dL (32-36); MEAN CORPUSCULAR VOLUME 100 fL (80-99); MEAN PLATELET VOLUME 9.7 fL (9.0-12.2); MONOCYTES # (AUTO) 0.5 10^3/uL (0.0-1.0); MONOCYTES % (AUTO) 5 % (0-12); NEUTROPHILS # (AUTO) 8.1 10^3/uL (1.8-7.8); NEUTROPHILS % (AUTO) 72 % (42-75); PLATELET COUNT 212 10^3/uL (130-400); WHITE BLOOD COUNT 11.3 10^3/uL (4.3-11.0)
[2021-06-29 21:12] LABS: PROTHROMBIN TIME PATIENT 13.6 SEC (12.2-14.7)
--- NOTE | 2021-06-29 21:14 | Diagnostic Imaging Report ---
INDICATION: Chest pain. FINDINGS: The lungs are clear. No failure, effusion or pneumothorax. IMPRESSION: No acute appearing abnormality. Dictated by: Dictated on workstation # [id number]
[2021-06-29 21:33] LABS: ALANINE AMINOTRANSFERASE 16 U/L (0-55); ALKALINE PHOSPHATASE 154 U/L (40-136); BILIRUBIN,TOTAL 0.3 MG/DL (0.1-1.0); BUN/CREATININE RATIO 13; CALCIUM 8.5 MG/DL (8.5-10.1); CARBON DIOXIDE 21 MMOL/L (21-32); CHLORIDE 95 MMOL/L (98-107); CREATININE SERUM 0.88 MG/DL (0.60-1.30); GFR ESTIMATED 81; GLUCOSE 114 MG/DL (70-105); MAGNESIUM 1.8 MG/DL (1.6-2.4); POTASSIUM 3.7 MMOL/L (3.6-5.0); SODIUM 127 MMOL/L (135-145)
[2021-06-29 21:34] LABS: ALBUMIN 3.8 GM/DL (3.2-4.5); LIPASE 37 U/L (8-78); TOTAL PROTEIN 6.8 GM/DL (6.4-8.2)
--- NOTE | 2021-06-29 21:35 | ED General ---
General Stated Complaint: CP Source of Information: Patient, EMS, Old Records History of Present Illness Date Seen by Provider: Jun 29, 2021 Time Seen by Provider: 20:32 Initial Comments 51-year-old female presenting with complaints of chest pain that has been going on all day. She states that it did improve when she had laid on aspirin dissolve in her mouth earlier today. She did that twice by taking a baby aspirin 2 different times. However she had been told by the clinic not to take more than 2 baby aspirin a day. She does take Xarelto as a blood thinner. She did not take her Xarelto this evening because she was having the chest pain and had taken 2 aspirin today. She had tried taking her breathing treatment around 530 but did not feel that it helps with her pain. She was having constant pain in her chest since around 5 PM. The pain is sharp at times and pressure at ot her times. It does radiate from the left side of her chest to her right shoulder and the right side of her neck. She denies having any nausea or vomiting. She has chronic COPD and difficulty breathing but does not feel that it is any worse than usual. She uses oxygen at home when she sleeps. She had called EMS earlier today to be seen and then refused transport because she was feeling better. However tonight because of having constant pain since 5 PM she decided to come be seen in evaluated rather than wait to try and get in with the clinic tomorrow. She does report that she has been under extra stress recently with family issues and custody issues with her grandchildren. She has been having difficulty sleeping and been tossing and turning a lot. She has not been able to take all of her medicines for her fibromyalgia such as her muscle relaxers. Timing/Duration: 12 Hours Severity: Severe Modifying Factors: worse with Movement Associated Systoms: Chest Pain, Cough; No Diaphoresis, No Fever/Chills, No Headaches, No Loss of Appetite, No Malaise, No Nausea/Vomiting, No Rash, No Seizure; Shortness of Air (chronic); No Syncope, No Weakness Allergies and Home Medications Allergies Coded Allergies: doxycycline (Unverified Allergy, Mild, nauseated, 08/01/09) spinach (Unverified Allergy, Mild, 08/01/09) alprazolam (Verified Allergy, Unknown, 07/18/19) diazepam (Verified Allergy, Unknown, 07/18/19) sumatriptan (Verified Allergy, Unknown, 07/18/19) Patient Home Medication List Home Medication List Reviewed: Yes Albuterol Sulfate (Ventolin Hfa) 1 Puff Puff, 2 PUFF INH Q4H PRN for COUGH, (Reported) Entered as Reported by: PEREZ HENDERSON on 03/29/20 1200 Albuterol/Ipratropium (Combivent Respimat Inhal Carson) 4 Gm Aero, 2 PUFF IH TID Prescribed by: EMILY DOMÍNGUEZ on 10/03/201913 Amoxicillin/Potassium Clav (Augmentin 875-125 Tablet) 1 Each Tablet, 1 EACH PO BID Prescribed by: EMILY DOMÍNGUEZ on 10/03/201913 Cefdinir (Cefdinir) 300 Mg Capsule, 300 MG PO BID Prescribed by: LEONOR CAMARGO on 03/29/20 1340 Cephalexin (Cephalexin) 500 Mg Capsule, 500 MG PO TID Prescribed by: TASH ALARCON on 02/27/21632 Cephalexin (Cephalexin) 500 Mg Capsule, 500 MG PO QID Prescribed by: TASH ALARCON on 03/14/212028 Cyclobenzaprine HCl (Cyclobenzaprine HCl) 10 Mg Tablet, 10 MG PO Q8H PRN for SPASMS Prescribed by: TASH ALARCON on 06/29/212207 Fluticasone Propionate (Flonase Allergy Relief) 9.9 Ml Carson.susp, 1 SPRAY NS DAILY Prescribed by: TASH ALARCON on 02/27/21632 Furosemide (Furosemide) 40 Mg Tablet, 40 MG PO BID, (Reported) Entered as Reported by: PEREZ HENDERSON on 03/29/20 1200 Gabapentin (Gabapentin) 600 Mg Tablet, 1,200 MG PO TID, (Reported) Entered as Reported by: PEREZ HENDERSON on 03/29/20 1200 Glimepiride (Glimepiride) 2 Mg Tablet, 2 MG PO BID, (Reported) Entered as Reported by: PEREZ HENDERSON on 03/29/20 1200 Haloperidol (Haloperidol) 10 Mg Tablet, 10 MG PO TID, (Reported) Entered as Reported by: PEREZ HENDERSON on 03/29/20 1200 Hydrocodone/Acetaminophen (Hydrocodone-Acetamin 5-325 mg) 1 Each Tablet, 1 TAB PO Q6H PRN for PAIN-MODERATE (5-7) Prescribed by: MAUREEN PARSONS on 08/18/20 1653 Hydrocodone/Acetaminophen (Hydrocodone-Acetamin 5-325 mg) 1 Each Tablet, 1 TAB PO Q8H PRN for PAIN-SEVERE (8-10) Prescribed by: TASH ALARCON on 12/01/20 2309 Lurasidone HCl (Latuda) 120 Mg Tablet, 120 MG PO 1800, (Reported) Entered as Reported by: PEREZ HENDERSON on 03/29/20 1200 Lurasidone HCl (Latuda) 40 Mg Tablet, 40 MG PO 1800, (Reported) Entered as Reported by: PEREZ HENDERSON on 03/29/201199 Montelukast Sodium (Montelukast Sodium) 10 Mg Tablet, 10 MG PO DAILY, (Reported) Entered as Reported by: PEREZ HENDERSON on 03/29/201199 Ondansetron (Ondansetron Odt) 4 Mg Tab.rapdis, 4 MG PO Q6H PRN for NAUSEA/VOMITING Prescribed by: TASH ALARCON on 09/20/20 2318 Phenytoin Sodium Extended (Phenytoin Sodium Extended) 200 Mg Capsule, 200 MG PO BID, (Reported) Entered as Reported by: PEREZ HENDERSON on 03/29/20 1200 Potassium Chloride (Potassium Chloride) 20 Meq Tablet.er, 20 MEQ PO DAILY Prescribed by: RADHA ESPINOZA on 06/14/21 1315 Prednisone (Prednisone) 20 Mg Tab, 40 MG PO DAILY Prescribed by: EMILY DOMÍNGUEZ on 10/03/20 1914 Quetiapine Fumarate (Quetiapine Fumarate) 100 Mg Tablet, 300 MG PO DAILY, (Reported) Entered as Reported by: PEREZ HENDERSON on 03/29/20 1200 Rivaroxaban (Xarelto) 20 Mg Tablet, 20 MG PO DAILY, (Reported) Entered as Reported by: PEREZ HENDERSON on 03/29/20 1200 Topiramate (Topiramate) 100 Mg Tablet, 200 MG PO BID, (Reported) Entered as Reported by: PEREZ HENDERSON on 03/29/20 1200 Trazodone HCl (Trazodone HCl) 100 Mg Tablet, 200 MG PO HS, (Reported) Entered as Reported by: PEREZ HENDERSON on 03/29/20 1200 Venlafaxine HCl (Venlafaxine HCl ER) 150 Mg Cap.er.24h, 300 MG PO DAILY, (Reported) Entered as Reported by: PEREZ HENDERSON on 03/29/20 1200 Review of Systems Review of Systems Constitutional: No chills, No fever EENTM: no symptoms reported Respiratory: see HPI Cardiovascular: see HPI Gastrointestinal: No nausea, No vomiting Genitourinary: No dysuria Musculoskeletal: No back pain, No neck pain Skin: No change in color Psychiatric/Neurological: Anxiety Hematologic/Lymphatic: Blood Clots Past Wlirqef-Nhmpwx-Egccel Hx Patient Social History Tobacco Use?: Yes Tobacco type used: Cigarettes Smoking Status: Current Everyday Smoker Alcohol Use?: No Immunizations Up To Date First/Initial COVID19 Vaccinat: Unknown Second COVID19 Vaccination Magdaleno: Unknow Seasonal Allergies Seasonal Allergies: No Past Medical History Surgery/Hospitalization HX: Mood disorder; COPD; Neuropathy; Frequent falls; HTN; Fibromyalgia; Surgeries: Yes (HIP, suprapubic catheter, Dental) Appendectomy, Gallbladder, Hysterectomy, Orthopedic Respiratory: Yes Asthma, Pneumonia, Chronic Bronchitis, Pulmonary Embolism, COPD, Emphysema Cardiac: Yes (CHF) Neurological: Yes Neuropathy 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 Disorders: No 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 Sexually Transmitted Disease: No HIV/AIDS: No Genitourinary: Yes Kidney Stones, Neurogenic Bladder, UTI-Chronic Gastrointestinal: Yes Abdominal Hernia, Gastroesophageal Reflux, Chronic Constipation, Irritable Bowel Musculoskeletal: Yes Arthritis, Fibromyalgia, Back Injury, Chronic Back Pain, Fractures, Spasms Endocrine: Yes Diabetes, Insulin dep, Hypothyroidsim HEENT: No Hearing Impairment: Hard of Hearing Cancer: Yes Ovarian Psychosocial: Yes ADD/ADHD, Bipolar, Schizophrenia Integumentary: No Blood Disorders: No Family Medical History No Pertinent Family Hx Physical Exam Vital Signs Vital Signs - First Documented 06/29/21 20:35 Temp 36.8 Pulse 75 Resp 17 B/P (MAP) 121/73 (89) Pulse Ox 98 O2 Delivery Nasal Cannula O2 Flow Rate 2.00 Capillary Refill : Height, Weight, BMI Height: '" Weight: 275lbs. oz. 124.005803iz; 56.00 BMI Method:Stated General Appearance: Chronically ill, Obese, Other (pt slurring her words and somnolent) HEENT: Moist Mucous Membranes Neck: Full Range of Motion, Normal Inspection, Non Tender, Supple Respiratory: Chest Non Tender, No Accessory Muscle Use, No Respiratory Distre ss, Decreased Breath Sounds Cardiovascular: Regular Rate, Rhythm, Normal Peripheral Pulses Gastrointestinal: Normal Bowel Sounds, No Pulsatile Mass, Non Tender, Soft Rectal: Deferred Extremity: Normal Capillary Refill, Normal Inspection, Pedal Edema (1+ bilateral LE) Neurologic/Psychiatric: Alert, Oriented x3 Skin: Normal Color, Warm/Dry Progress/Results/Core Measures Suspected Sepsis SIRS Temperature: Pulse: Respiratory Rate: Laboratory Tests 06/29/21 20:55: White Blood Count 11.3H Blood Pressure / Mean: Laboratory Tests 06/29/21 20:55: Creatinine 0.88, INR Comment 1.0, Platelet Count 212, Total Bilirubin 0.3 Results/Orders Lab Results Laboratory Tests Test 06/29/21 20:55 Range/Units White Blood Count 11.3 H 4.3-11.0 10^3/uL Red Blood Count 4.06 3.80-5.11 10^6/uL Hemoglobin 13.6 11.5-16.0 g/dL Hematocrit 41 35-52 % Mean Corpuscular Volume 100 H 80-99 fL Mean Corpuscular Hemoglobin 34 25-34 pg Mean Corpuscular Hemoglobin Concent 34 32-36 g/dL Red Cell Distribution Width 14.0 10.0-14.5 % Platelet Count 212 130-400 10^3/uL Mean Platelet Volume 9.7 9.0-12.2 fL Immature Granulocyte % (Auto) 0 % Neutrophils (%) (Auto) 72 42-75 % Lymphocytes (%) (Auto) 22 12-44 % Monocytes (%) (Auto) 5 0-12 % Eosinophils (%) (Auto) 1 0-10 % Basophils (%) (Auto) 0 0-10 % Neutrophils # (Auto) 8.1 H 1.8-7.8 10^3/uL Lymphocytes # (Auto) 2.5 1.0-4.0 10^3/uL Monocytes # (Auto) 0.5 0.0-1.0 10^3/uL Eosinophils # (Auto) 0.2 0.0-0.3 10^3/uL Basophils # (Auto) 0.0 0.0-0.1 10^3/uL Immature Granulocyte # (Auto) 0.1 0.0-0.1 10^3/uL Prothrombin Time 13.6 12.2-14.7 SEC INR Comment 1.0 0.8-1.4 Activated Partial Thromboplast Time 37 H 24-35 SEC Sodium Level 127 L 135-145 MMOL/L Potassium Level 3.7 3.6-5.0 MMOL/L Chloride Level 95 L 98-107 MMOL/L Carbon Dioxide Level 21 21-32 MMOL/L Anion Gap 11 5-14 MMOL/L Blood Urea Nitrogen 11 7-18 MG/DL Creatinine 0.88 0.60-1.30 MG/DL Estimat Glomerular Filtration Rate 81 BUN/Creatinine Ratio 13 Glucose Level 114 H 70-105 MG/DL Calcium Level 8.5 8.5-10.1 MG/DL Corrected Calcium 8.7 8.5-10.1 MG/DL Magnesium Level 1.8 1.6-2.4 MG/DL Total Bilirubin 0.3 0.1-1.0 MG/DL Aspartate Amino Transf (AST/SGOT) 8 5-34 U/L Alanine Aminotransferase (ALT/SGPT) 16 0-55 U/L Alkaline Phosphatase 154 H 40-136 U/L Myoglobin < 21.0 10.0-92.0 NG/ML Troponin I < 0.30 <0.30 NG/ML Pro-B-Type Natriuretic Peptide 175.8 H <75.0 PG/ML Total Protein 6.8 6.4-8.2 GM/DL Albumin 3.8 3.2-4.5 GM/DL Lipase 37 8-78 U/L My Orders Orders - TASH ALARCON MD Cbc With Automated Diff (06/29/21 20:49) Magnesium (06/29/21 20:49) Chest 1 View Ap/Pa Only (06/29/21 20:49) Ekg Tracing (06/29/21 20:49) Comprehensive Metabolic Panel (06/29/21 20:49) Myoglobin Serum (06/29/21 20:49) Protime With Inr (06/29/21 20:49) Partial Thromboplastin Time (06/29/21 20:49) O2 (06/29/21 20:49) Monitor-Rhythm Ecg Trace Only (06/29/21 20:49) Ed Iv/Invasive Line Start (06/29/21 20:49) Lipase (06/29/21 20:49) Troponin I Fs (06/29/21 20:49) Probnp Fs (06/29/21 20:49) Fentanyl Inj (Sublimaze Injection) (06/29/21 20:50) Ketorolac Injection (Toradol Injection) (06/29/21 20:50) Cyclobenzaprine Tablet (Flexeril Tablet) (06/29/21 22:02) Nitroglycerin 0.4 Mg Btl 25's (Nitrostat (06/29/21 22:02) Vital Signs/I&O 06/29/21 06/29/21 20:35 20:35 Temp 36.8 Pulse 75 Resp 17 B/P (MAP) 121/73 (89) Pulse Ox 98 98 O2 Delivery Nasal Cannula Nasal Cannula O2 Flow Rate 2.00 2.00 Capillary Refill : Progress Note #1: Progress Note Check basic labs including cardiac enzymes and chest x-ray. Electrocardiogram shows sinus rhythm without acute ST elevation. Since she is very boarding pain 9 out of 10 we will try giving fentanyl and low-dose Toradol since some of this seems to be pleuritic or sharp in nature. Differential diagnosis includes acute coronary syndrome, pleuritic chest pain, COPD, pneumonia, Covid, GERD, chest wall pain Progress Note #2: Progress Note Chest x-ray without acute process. Electrocardiogram does not show any acute ST elevation. Basic labs appear stable without acute significant abnormality. CBC and coags are stable for her. Chemistry shows chronic hyponatremia. Her troponin is less than 0.3. Especially considering she was reporting constant chest pain since earlier today and especially constant since 5 PM by now she should have had some sort of an elevation or bump in her troponin if this was a myocardial infarction. Reviewed with patient results and see if she has any improvement after the pain medicine here. Continue to encourage follow-up with primary. When discussing results with the patient she stated that she had not been able to take any of her cyclobenzaprine for muscle spasms and muscle pain for a while now. She also has been under extra stress and been having difficulty sleeping. She has been tossing and turning which is causing chest pain stated. She states that she had a seizure earlier today which may have also triggered some of her chest pains. Advised that just because the nitroglycerin had helped on Sunday when she took it for chest pain from a friend's supply of nitroglycerin does not mean that it was heart related. The nitroglycerin can help relax muscles in general. It could also help benefit muscle tightness and spasms in her chest wall. We will give a single dose here since she reported that it helped over the weekend. We will also try and give a dose of the Flexeril since she has not had that for a while. Reassured that this was not a heart attack and not seeing pneumonia. ECG Initial ECG Impression Date: Jun 29, 2021 Initial ECG Impression Time: 20:31 Initial ECG Rate: 71 Initial ECG Rhythm: Normal Sinus Initial ECG Comparisson: Unchanged Comment Normal sinus rhythm with a heart rate of 71 bpm. UT interval [address] elevation. Nonspecific T wave changes in the anterolateral leads. QT interval 422 ms with a QTc interval 459 ms. Overall appears similar to prior tracings in the system. Diagnostic Imaging Diagonstic Imaging: Xray Plain Films/CT/US/NM/MRI: chest Comments [facility]. [place], [place] NAME: VELAZQUEZJERALD [facility] REC#: [id number] PT STATUS: REG ER : 1970 PHYSICIAN: TASH ALARCON MD ADMIT DATE: 06/29/21/ER FS Signed Date of Exam:06/29/21 CHEST 1 VIEW AP/PA ONLY INDICATION: Chest pain. FINDINGS: The lungs are clear. No failure, effusion or pneumothorax. IMPRESSION: No acute appearing abnormality. Dictated by: Dictated on workstation # [id number] Dict: 06/29/212103 Trans: 06/29/212116 [facility] [id number] Interpreted by: DAVEY WEIR Electronically signed by: DAVEY WEIR 06/29/212116 Reviewed: Reviewed by Me Departure Impression Primary Impression: Atypical chest pain Additional Impression: Stress and adjustment reaction Disposition: HOME, SELF-CARE Condition: Stable Departure-Patient Inst. Decision time for Depature: 22:05 Referrals: ANA HASSAN APRN (PCP) Primary Care Physician [facility] (Family) Primary Care Physician Patient Instructions: Chest Pain, Adult ED, Stress Add. Discharge Instructions: Try taking your Cyclobenzaprine as a muscle relaxer to help with muscle inflammation and spasms from your fibromyalgia and chest pains. Your tests do not show that you have had a heart attack or signs of pneumonia. Check back with [facility] clinic and Nurse Practitioner Anand about your symptoms and stress issues Scripts Cyclobenzaprine HCl (Cyclobenzaprine HCl) 10 Mg Tablet 10 MG PO Q8H PRN for SPASMS for 10 Days, #30 TAB 0 Refills Prov: TASH ALARCON MD 06/29/21 TASH ALARCON MD Jun 29, 2021 21:35
[2021-06-29] MEDS ORDERED: CYCLOBENZAPRINE 10 MG (FLEXERIL) TAB PO STA (22:02)
[2021-06-29] MEDS ORDERED: NITROGLYCERIN 0.4 MG SL TABS BTL 25'S SL STA (22:02)
[2021-06-29] MEDS ORDERED: CYCL10TA25 PO (22:08)
[2021-06-29 22:20] VITALS: BP 112/55
== END 2021-06-29 22:21 | disposition home or self-care (01) ==
LOC: EDUNIT# 20:32 → ER FS 20:33
DX: R07.89 Other chest pain (principal); F43.20 Adjustment disorder, unspecified; J44.9 Chronic obstructive pulmonary disease, unspecified; I11.0 Hypertensive heart disease with heart failure; I50.9 Heart failure, unspecified; E66.9 Obesity, unspecified; E11.9 Type 2 diabetes mellitus without complications; F31.9 Bipolar disorder, unspecified; F20.9 Schizophrenia, unspecified; G89.29 Other chronic pain; M54.9 Dorsalgia, unspecified; F17.210 Nicotine dependence, cigarettes, uncomplicated; Z68.43 Body mass index [BMI] 50.0-59.9, adult; Z86.711 Personal history of pulmonary embolism; Z79.01 Long term (current) use of anticoagulants; Z79.891 Long term (current) use of opiate analgesic; Z79.899 Other long term (current) drug therapy
CPT/HCPCS: 36415; 71045; 80053; 83690; 83735; 83874; 83880; 84484; 85025; 85610; 85730; 93005; 93041

== ENCOUNTER 2021-07-02 23:44 | Emergency (ER) | payer MEDICAID ==
[2021-07-02] MEDS ORDERED: ORPHENADRINE 60 MG/2 ML (NORFLEX) AMP (ED ONLY) IVP STA (23:54)
[2021-07-02] MEDS ORDERED: KETOROLAC 30 MG/ML VIAL IVP STA (23:54)
[2021-07-03 00:02] LABS: BASOPHILS % (AUTO) 0 % (0-10); EOSINOPHILS % (AUTO) 0 % (0-10); HEMATOCRIT 43 % (35-52); HEMOGLOBIN 14.7 g/dL (11.5-16.0); LYMPHOCYTES # (AUTO) 0.8 X 10^3 (1.0-4.0); LYMPHOCYTES % (AUTO) 6 % (12-44); MEAN CORPUSCULAR HEMOGLOBIN 33 pg (25-34); MEAN CORPUSCULAR HGB CONC 34 g/dL (32-36); MEAN CORPUSCULAR VOLUME 97 fL (80-99); MEAN PLATELET VOLUME 9.9 fL (9.0-12.2); MONOCYTES # (AUTO) 0.5 X 10^3 (0.0-1.0); MONOCYTES % (AUTO) 4 % (0-12); NEUTROPHILS # (AUTO) 11.4 X 10^3 (1.8-7.8); NEUTROPHILS % (AUTO) 89 % (42-75); PLATELET COUNT 256 10^3/uL (130-400); WHITE BLOOD COUNT 12.8 10^3/uL (4.3-11.0)
--- NOTE | 2021-07-03 00:04 | ED Chest Pain ---
General Chief Complaint: Chest Pain Stated Complaint: CHEST PAIN Source: patient, EMS, old records History of Present Illness Date Seen by Provider: Jul 02, 2021 Time Seen by Provider: 23:44 Initial Comments 51-year-old female presenting with complaints of recurrent chest pain that started around 7:30 PM. She denies any activity when the pain came on. Feels similar to the pain that she has been having over the last week or 2. She was seen on Sunday with the same sort of pain. At that time all of her cardiac testing had come back negative. She reports that she had improvement with taking a single nitroglycerin from a friend and an anti-inflammatory here in the ED. She was seen in the clinic and prescribed nitroglycerin by the provider there. She had taken 3 nitroglycerin over the course of the last 5 or 6 hours and still had pain as well she was having pressure in her head. Because of continued symptoms she decided to call EMS to be evaluated. She denies any nausea, vomiting, abdominal pain, increased cough, increased sputum production, fever, chills. She does have COPD and was on room air when EMS arrived although she is supposed to wear oxygen overnight. 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 Associated Symptoms: No abdominal pain, No back pain, No diaphoresis, No dizziness, No edema, No fatigue, No fever/chills; headache (pressure in head, especially since taking ntg); No heartburn, No nausea/vomiting, No rash; shortness of breath (chronic with COPD); No swelling/lump in chest, No syncope, No weakness Allergies and Home Medications Allergies Coded Allergies: doxycycline (Unverified Allergy, Mild, nauseated, 08/01/09) spinach (Unverified Allergy, Mild, 08/01/09) alprazolam (Verified Allergy, Unknown, 07/18/19) diazepam (Verified Allergy, Unknown, 07/18/19) sumatriptan (Verified Allergy, Unknown, 07/18/19) Patient Home Medication List Home Medication List Reviewed: Yes Albuterol Sulfate (Ventolin Hfa) 1 Puff Puff, 2 PUFF INH Q4H PRN for COUGH, (Reported) Entered as Reported by: PEREZ HENDERSON on 03/29/20 1200 Albuterol/Ipratropium (Combivent Respimat Inhal [place]) 4 Gm Aero, 2 PUFF IH TID Prescribed by: EMILY DOMÍNGUEZ on 10/03/201913 Amoxicillin/Potassium Clav (Augmentin 875-125 Tablet) 1 Each Tablet, 1 EACH PO BID Prescribed by: EMILY DOMÍNGUEZ on 10/03/201913 Cefdinir (Cefdinir) 300 Mg Capsule, 300 MG PO BID Prescribed by: LEONOR CAMARGO on 03/29/20 1340 Cephalexin (Cephalexin) 500 Mg Capsule, 500 MG PO TID Prescribed by: TASH ALARCON on 02/27/21632 Cephalexin (Cephalexin) 500 Mg Capsule, 500 MG PO QID Prescribed by: TASH ALARCON on 03/14/212028 Cyclobenzaprine HCl (Cyclobenzaprine HCl) 10 Mg Tablet, 10 MG PO Q8H PRN for SPASMS Prescribed by: TASH ALARCON on 06/29/212207 Fluticasone Propionate (Flonase Allergy Relief) 9.9 Ml [place].susp, 1 SPRAY NS DAILY Prescribed by: TASH ALARCON on 02/27/21632 Furosemide (Furosemide) 40 Mg Tablet, 40 MG PO BID, (Reported) Entered as Reported by: PEREZ HENDERSON on 03/29/20 1200 Gabapentin (Gabapentin) 600 Mg Tablet, 1,200 MG PO TID, (Reported) Entered as Reported by: PEREZ HENDERSON on 03/29/20 1200 Glimepiride (Glimepiride) 2 Mg Tablet, 2 MG PO BID, (Reported) Entered as Reported by: PEREZ HENDERSON on 03/29/20 1200 Haloperidol (Haloperidol) 10 Mg Tablet, 10 MG PO TID, (Reported) Entered as Reported by: PEREZ HENDERSON on 03/29/20 1200 Hydrocodone/Acetaminophen (Hydrocodone-Acetamin 5-325 mg) 1 Each Tablet, 1 TAB PO Q6H PRN for PAIN-MODERATE (5-7) Prescribed by: MAUREEN PARSONS on 08/18/20 1653 Hydrocodone/Acetaminophen (Hydrocodone-Acetamin 5-325 mg) 1 Each Tablet, 1 TAB PO Q8H PRN for PAIN-SEVERE (8-10) Prescribed by: TASH ALARCON on 12/01/20 2309 Lurasidone HCl (Latuda) 120 Mg Tablet, 120 MG PO 1800, (Reported) Entered as Reported by: PEREZ HENDERSON on 03/29/201199 Lurasidone HCl (Latuda) 40 Mg Tablet, 40 MG PO 1800, (Reported) Entered as Reported by: PEREZ HENDERSON on 03/29/201199 Montelukast Sodium (Montelukast Sodium) 10 Mg Tablet, 10 MG PO DAILY, (Reported) Entered as Reported by: PEREZ HENDERSON on 03/29/201199 Ondansetron (Ondansetron Odt) 4 Mg Tab.rapdis, 4 MG PO Q6H PRN for NAUSEA/VOMITING Prescribed by: TASH ALARCON on 09/20/20 2318 Phenytoin Sodium Extended (Phenytoin Sodium Extended) 200 Mg Capsule, 200 MG PO BID, (Reported) Entered as Reported by: PEREZ HENDERSON on 03/29/201199 Potassium Chloride (Potassium Chloride) 20 Meq Tablet.er, 20 MEQ PO DAILY Prescribed by: RADHA ESPINOZA on 06/14/21 1315 Prednisone (Prednisone) 20 Mg Tab, 40 MG PO DAILY Prescribed by: EMILY DOMÍNGUEZ on 10/03/20 1914 Quetiapine Fumarate (Quetiapine Fumarate) 100 Mg Tablet, 300 MG PO DAILY, (Reported) Entered as Reported by: PEREZ HENDERSON on 03/29/201199 Rivaroxaban (Xarelto) 20 Mg Tablet, 20 MG PO DAILY, (Reported) Entered as Reported by: PEREZ HENDERSON on 03/29/20 1200 Topiramate (Topiramate) 100 Mg Tablet, 200 MG PO BID, (Reported) Entered as Reported by: PEREZ HENDERSON on 03/29/20 1200 Trazodone HCl (Trazodone HCl) 100 Mg Tablet, 200 MG PO HS, (Reported) Entered as Reported by: PEREZ HENDERSON on 03/29/201199 Venlafaxine HCl (Venlafaxine HCl ER) 150 Mg Cap.er.24h, 300 MG PO DAILY, (Reported) Entered as Reported by: PEREZ HENDERSON on 03/29/201199 Review of Systems Review of Systems Constitutional: No chills, No fever EENTM: No Symptoms Reported Respiratory: See HPI Cardiovascular: See HPI; Denies Lightheadedness, Denies Palpitations, Denies Syncope Gastrointestinal: See HPI; Denies Nausea, Denies Vomiting Genitourinary: No Symptoms Reported Musculoskeletal: see HPI (chest wall pain tender to palpation and reproduces her chest pain complaint) Skin: no symptoms reported Psychiatric/Neurological: Anxiety Endocrine: No Symptoms Reported Hematologic/Lymphatic: Easy Bleeding (takes blood thinner), Easy Bruising (taked blood thinner) Past Wvkefgd-Xxpkek-Vfnbpp Hx Patient Social History Tobacco Use?: Yes Tobacco type used: Cigarettes Smoking Status: Current Everyday Smoker Substance use?: No Alcohol Use?: No Pt feels they are or have been: No Immunizations Up To Date First/Initial COVID19 Vaccinat: Unknown Second COVID19 Vaccination Magdaleno: Unknow COVID19 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[employer] Seasonal Allergies Seasonal Allergies: No Past Medical History Surgery/Hospitalization HX: Mood disorder; COPD; Neuropathy; Frequent falls; HTN; Fibromyalgia; Surgeries: Yes (HIP, suprapubic catheter, Dental) Appendectomy, Gallbladder, Hysterectomy, Orthopedic Respiratory: Yes Asthma, Pneumonia, Chronic Bronchitis, Pulmonary Embolism, COPD, Emphysema Cardiac: Yes (CHF) Neurological: Yes Neuropathy 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 Disorders: No 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 Sexually Transmitted Disease: No HIV/AIDS: No Genitourinary: Yes Kidney Stones, Neurogenic Bladder, UTI-Chronic Gastrointestinal: Yes Abdominal Hernia, Gastroesophageal Reflux, Chronic Constipation, Irritable Bowel Musculoskeletal: Yes Arthritis, Fibromyalgia, Back Injury, Chronic Back Pain, Fractures, Spasms Endocrine: Yes Diabetes, Insulin dep, Hypothyroidsim HEENT: No Hearing Impairment: Hard of Hearing Cancer: Yes Ovarian Psychosocial: Yes ADD/ADHD, Bipolar, Schizophrenia Integumentary: No Blood Disorders: No Family Medical History No Pertinent Family Hx Physical Exam Vital Signs Vital Signs - First Documented 07/02/21 23:45 Pulse 84 Resp 22 B/P (MAP) 138/80 (99) Pulse Ox 98 O2 Delivery Nasal Cannula O2 Flow Rate 2.00 Capillary Refill : Height, Weight, BMI Height: '" Weight: 275lbs. oz. 124.236560md; 56.00 BMI Method:Stated General Appearance: No Apparent Distress, Chronically ill (appears older than stated age), Obese HEENT: PERRL/EOMI, Pharynx Normal Neck: Full Range of Motion, Supple; No Carotid Bruit Respiratory: No Chest Non Tender (tender to palpation on left chest wall and sternal border, reproduces chest pain by palpation of chest wall); No Accessory Muscle Use, No Respiratory Distress; No Rhonci, No Stridor; Wheezing Cardiovascular: Regular Rate, Rhythm, No Murmur, Normal Peripheral Pulses Gastrointestinal: Normal Bowel Sounds, No Pulsatile Mass, Non Tender, Soft Rectal: Deferred Extremity: Normal Capillary Refill, Normal Inspection, Pedal Edema Neurologic/Psychiatric: Alert, Oriented x3, medical director II-XII Norm as Tested Skin: Normal Color, Warm/Dry Progress/Results/Core Measures Results/Orders Lab Results Laboratory Tests Test 07/02/21 22:51 Range/Units White Blood Count 12.8 H 4.3-11.0 10^3/uL Red Blood Count 4.41 3.80-5.11 10^6/uL Hemoglobin 14.7 11.5-16.0 g/dL Hematocrit 43 35-52 % Mean Corpuscular Volume 97 80-99 fL Mean Corpuscular Hemoglobin 33 25-34 pg Mean Corpuscular Hemoglobin Concent 34 32-36 g/dL Red Cell Distribution Width 13.9 10.0-14.5 % Platelet Count 256 130-400 10^3/uL Mean Platelet Volume 9.9 9.0-12.2 fL Immature Granulocyte % (Auto) 1 % Neutrophils (%) (Auto) 89 H 42-75 % Lymphocytes (%) (Auto) 6 L 12-44 % Monocytes (%) (Auto) 4 0-12 % Eosinophils (%) (Auto) 0 0-10 % Basophils (%) (Auto) 0 0-10 % Neutrophils # (Auto) 11.4 H 1.8-7.8 X 10^3 Lymphocytes # (Auto) 0.8 L 1.0-4.0 X 10^3 Monocytes # (Auto) 0.5 0.0-1.0 X 10^3 Eosinophils # (Auto) 0.0 0.0-0.3 10^3/uL Basophils # (Auto) 0.0 0.0-0.1 10^3/uL Immature Granulocyte # (Auto) 0.1 0.0-0.1 10^3/uL Neutrophils % (Manual) 93 % Lymphocytes % (Manual) 6 % Monocytes % (Manual) 1 % Toxic Granulation 2+ Platelet Estimate LRG PLTS Prothrombin Time 14.7 12.2-14.7 SEC INR Comment 1.1 0.8-1.4 Activated Partial Thromboplast Time 37 H 24-35 SEC Sodium Level 123 *L 135-145 MMOL/L Potassium Level 4.6 3.6-5.0 MMOL/L Chloride Level 92 L 98-107 MMOL/L Carbon Dioxide Level 20 L 21-32 MMOL/L Anion Gap 11 5-14 MMOL/L Blood Urea Nitrogen 9 7-18 MG/DL Creatinine 0.87 0.60-1.30 MG/DL Estimat Glomerular Filtration Rate 82 BUN/Creatinine Ratio 10 Glucose Level 188 H 70-105 MG/DL Calcium Level 8.9 8.5-10.1 MG/DL Corrected Calcium 9.0 8.5-10.1 MG/DL Magnesium Level 2.0 1.6-2.4 MG/DL Total Bilirubin 0.2 0.1-1.0 MG/DL Aspartate Amino Transf (AST/SGOT) 9 5-34 U/L Alanine Aminotransferase (ALT/SGPT) 14 0-55 U/L Alkaline Phosphatase 158 H 40-136 U/L Myoglobin < 21.0 10.0-92.0 NG/ML Troponin I < 0.30 <0.30 NG/ML Pro-B-Type Natriuretic Peptide 205.1 H <75.0 PG/ML Total Protein 7.2 6.4-8.2 GM/DL Albumin 3.9 3.2-4.5 GM/DL Lipase 43 8-78 U/L My Orders Orders - TASH ALARCON MD Cbc With Automated Diff (07/02/21 23:54) Magnesium (07/02/21 23:54) Chest 1 View Ap/Pa Only (07/02/21 23:54) Ekg Tracing (07/02/21 23:54) Comprehensive Metabolic Panel (07/02/21 23:54) Myoglobin Serum (07/02/21 23:54) Protime With Inr (07/02/21 23:54) Partial Thromboplastin Time (07/02/21 23:54) O2 (07/02/21 23:54) Monitor-Rhythm Ecg Trace Only (07/02/21 23:54) Ed Iv/Invasive Line Start (07/02/21 23:54) Lipase (07/02/21 23:54) Troponin I Fs (07/02/21 23:54) Probnp Fs (07/02/21 23:54) Ketorolac Injection (Toradol Injection) (07/02/21 23:54) Orphenadrine Inj (Ed Only) (Norflex Inje (07/02/21 23:54) Manual Differential (07/02/21 22:51) Hydrocodone/Apap 5/325 Tablet (Lortab 5 (07/03/21 01:02) Vital Signs/I&O 07/02/21 07/03/21 23:45 00:37 Pulse 84 84 Resp 22 B/P (MAP) 138/80 (99) 138/80 Pulse Ox 98 98 O2 Delivery Nasal Cannula Nasal Cannula O2 Flow Rate 2.00 2.00 2.00 Progress Progress Note #1: Progress Note Repeat labs in chest x-ray with electrocardiogram to compare to results from Sunday. With pain reproducible by palpation of the chest wall the still seems to be more musculoskeletal in nature especially since it has been present since around 7:30 PM. Try dose of Toradol 15 mg IV for pain and inflammation, Norflex 60 mg IV for possible muscle spasms and chest wall pain. Differential diagnosis includes myocardial infarction, acute coronary syndrome, chest wall pain, costochondritis, pleurisy, GERD, esophageal spasms Progress Note #2: Time: 00:28 Progress Note On my review of the 1 view chest x-ray she has no acute infiltrate or process. Her electrocardiogram appears similar to prior tracings. Her labs show the CBC has continued mild elevation of the white blood cell count at 12.8. Her chemistry panel shows chronic hyponatremia slightly worsened tonight at 123. Her troponin is still less than 0.3 after having pain since around 1930. If this was cardiac pain and had myocardial infarction but now she should have had a bump in her troponin. Her vital signs remained stable. Will discharge to home and encouraged her to follow-up with her primary again about continued recurrent chest wall pain. Counseled on return and follow-up precautions. Counseled on using ice alternating with heat to help with chest wall pain. Patient states that she does still have some pain but it is improved from when she arrived. She also reports with her fibromyalgia and neuropathy that she does take hydrocodone at home. We will give her an additional dose of hydrocodone here to help with her pain. Encouraged to check back with the clinic and continue with her plan for cardiology evaluation. Initial ECG Impression Date: Jul 02, 2021 Initial ECG Impression Time: 23:45 Initial ECG Rate: 80 Initial ECG Rhythm: Normal Sinus Initial ECG Comparisson: Unchanged Comment Normal sinus rhythm with a heart rate of [address] elevation. [place] interval 156 ms. QT interval 398 ms with a QTc interval of 460 ms. Appears similar to prior tracing in the system. Diagnostic Imaging Diagonstic Imaging: Xray Plain Films/CT/US/NM/MRI: chest Comments On my review of the 1 view chest x-ray she has no acute process. Appears similar to prior imaging Reviewed: Reviewed by Me Departure Impression Primary Impression: Chest wall pain Additional Impressions: COPD (chronic obstructive pulmonary disease) Qualified Codes: J44.9 - Chronic obstructive pulmonary disease, unspecified Chronic hyponatremia Disposition: HOME, SELF-CARE Condition: Stable Departure-Patient Inst. Decision time for Depature: 00:35 Referrals: ANA HASSAN APRN (PCP) Primary Care Physician [facility] (Family) Primary Care Physician Patient Instructions: Chest Pain, Adult ED, Chest Pain That Is Not Caused by the Heart (DC), Costochondritis (DC) Add. Discharge Instructions: Try alternating ice and heat to chest wall for chest wall pain. Your tests tonight do not show signs of heart attack or heart damage and not seeing signs of pneumonia. Check back with clinic for continued pain and symptoms. All discharge instructions reviewed with patient and/or family. Voiced understanding. TASH ALARCON MD Jul 03, 2021 00:04
[2021-07-03 00:13] LABS: INR 1.1 (0.8-1.4); PROTHROMBIN TIME PATIENT 14.7 SEC (12.2-14.7)
[2021-07-03 00:18] LABS: LYMPHOCYTES % (MANUAL) 6 %; MONOCYTES % (MANUAL) 1 %; NEUTROPHILS % (MANUAL) 93 %; TOXIC GRANULATION/VACUOLAZATIO 2+
[2021-07-03 00:19] LABS: PLATELET ESTIMATE LRG PLTS
[2021-07-03 00:23] LABS: BUN/CREATININE RATIO 10; CARBON DIOXIDE 20 MMOL/L (21-32); CHLORIDE 92 MMOL/L (98-107); CREATININE SERUM 0.87 MG/DL (0.60-1.30); GFR ESTIMATED 82; GLUCOSE 188 MG/DL (70-105); POTASSIUM 4.6 MMOL/L (3.6-5.0); SODIUM 123 MMOL/L (135-145)
[2021-07-03 00:24] LABS: ALANINE AMINOTRANSFERASE 14 U/L (0-55); ALBUMIN 3.9 GM/DL (3.2-4.5); ALKALINE PHOSPHATASE 158 U/L (40-136); BILIRUBIN,TOTAL 0.2 MG/DL (0.1-1.0); CALCIUM 8.9 MG/DL (8.5-10.1); LIPASE 43 U/L (8-78); TOTAL PROTEIN 7.2 GM/DL (6.4-8.2)
[2021-07-03 00:37] VITALS: BP 138/80
[2021-07-03] MEDS ORDERED: HYDROcodone/APAP 5 MG/325 MG (LORTAB) TAB PO STA (01:02)
--- NOTE | 2021-07-03 05:57 | Diagnostic Imaging Report ---
Indication: Chest pain for 5 hours. Comparison: 06/29/2021. Discussion: Single portable upright view of the chest was obtained. Stable normal heart size. No consolidation, pleural fluid, or pneumothorax. No osseous abnormality. Impression: 1. Stable negative chest. Dictated by: Dictated on workstation # [id number]
== END 2021-07-03 01:15 | disposition home or self-care (01) ==
LOC: EDUNIT# 23:44 → ER FS 23:45
DX: R07.89 Other chest pain (principal); J44.9 Chronic obstructive pulmonary disease, unspecified; E87.1 Hypo-osmolality and hyponatremia; I11.0 Hypertensive heart disease with heart failure; I50.9 Heart failure, unspecified; E66.9 Obesity, unspecified; F31.9 Bipolar disorder, unspecified; F20.9 Schizophrenia, unspecified; E11.9 Type 2 diabetes mellitus without complications; G89.29 Other chronic pain; M54.9 Dorsalgia, unspecified; F17.210 Nicotine dependence, cigarettes, uncomplicated; Z68.43 Body mass index [BMI] 50.0-59.9, adult; Z86.711 Personal history of pulmonary embolism; Z79.01 Long term (current) use of anticoagulants; Z79.891 Long term (current) use of opiate analgesic; Z79.899 Other long term (current) drug therapy
CPT/HCPCS: 36415; 71045; 80053; 83690; 83735; 83874; 83880; 84484; 85007; 85027; 85610; 85730; 93005; 93041

== ENCOUNTER 2021-07-22 13:14 | Emergency (ER) | payer MEDICAID ==
[~2021-07-22] VITALS: Ht 157.5 cm; Wt 112.7 kg
[2021-07-22 13:38] LABS: ABG BASE EXCESS -1.5 MMOL/L (-2.5-2.5); ABG OXYGEN SATURATION 90 % (94-100); ABG PCO2 52 MMHG (35-45); ABG PO2 53 MMHG (79-93); ABG TCO2 26.1 MMOL/L (21.0-31.0)
[2021-07-22 13:39] LABS: ABG PH 7.29 (7.37-7.43); ALLENS TEST YES-POS; INSPIRED O2 2L; PATIENT TEMP 35.9; VENTILATOR NO
--- NOTE | 2021-07-22 13:39 | ED General ---
General Chief Complaint: General Problems/Pain Stated Complaint: WEIGHT LOSS/ DIFFICULTY EATING Nursing Triage Note: PT TO RM 6 VIA WC W C/O 30LB WT LOSS IN 3 WKS, DECREASED APPETITE, R ABD PAIN, FATIGUE, NAUSEA, SOA, AND FALL 4 DAYS AGO. PT DENIES HITTING HEAD DURING FALL. PT DENIES PAIN AT THIS TIME, REPORTS R ABD PAIN IS INTERMITTENT X3 WKS. PT A&OX4. Source of Information: Patient Exam Limitations: No Limitations History of Present Illness Date Seen by Provider: Jul 22, 2021 Time Seen by Provider: 13:37 Initial Comments To ER by private vehicle from [facility] [place] with reports of a weight loss from 310 pounds down to 248 pounds over the course of the past 3 weeks secondary to intense nausea and diffuse intermittent (not present currently) abdominal pain. One episode of diarrhea over the past 3 weeks. Her urine has been dark. She has been sleeping a lot lately. She smokes 2 packs of cigarettes daily. No fevers or chills. Family reports that she fell asleep and they had difficulty arousing her several times on the trip down here. She lives in [place]. Timing/Duration: Other Severity: Moderate Associated Systoms: Denies Symptoms, Nausea/Vomiting, Weakness Allergies and Home Medications Allergies Coded Allergies: doxycycline (Unverified Allergy, Mild, nauseated, 08/01/09) spinach (Unverified Allergy, Mild, 08/01/09) alprazolam (Verified Allergy, Unknown, 07/18/19) diazepam (Verified Allergy, Unknown, 07/18/19) sumatriptan (Verified Allergy, Unknown, 07/18/19) Patient Home Medication List Home Medication List Reviewed: Yes Albuterol Sulfate (Ventolin Hfa) 1 Puff Puff, 2 PUFF INH Q4H PRN for COUGH, (Reported) Entered as Reported by: PEREZ HENDERSON on 03/29/20 1200 Albuterol/Ipratropium (Combivent Respimat Inhal [place]) 4 Gm Aero, 2 PUFF IH TID Prescribed by: EMILY DOMÍNGUEZ on 10/03/201913 Amoxicillin/Potassium Clav (Augmentin 875-125 Tablet) 1 Each Tablet, 1 EACH PO BID Prescribed by: EMILY DOMÍNGUEZ on 10/03/201913 Cefdinir (Cefdinir) 300 Mg Capsule, 300 MG PO BID Prescribed by: LEONOR CAMARGO on 03/29/20 1340 Cefuroxime Axetil (Cefuroxime) 250 Mg Tablet, 250 MG PO BID Prescribed by: RAJAT SPARKS on 07/22/21 1540 Cephalexin (Cephalexin) 500 Mg Capsule, 500 MG PO TID Prescribed by: TASH ALARCON on 02/27/21632 Cephalexin (Cephalexin) 500 Mg Capsule, 500 MG PO QID Prescribed by: TASH ALARCON on 03/14/212028 Cyclobenzaprine HCl (Cyclobenzaprine HCl) 10 Mg Tablet, 10 MG PO Q8H PRN for SPASMS Prescribed by: TASH ALARCON on 06/29/212207 Fluticasone Propionate (Flonase Allergy Relief) 9.9 Ml [place].susp, 1 SPRAY NS DAILY Prescribed by: TASH ALARCON on 02/27/21632 Furosemide (Furosemide) 40 Mg Tablet, 40 MG PO BID, (Reported) Entered as Reported by: PEREZ HENDERSON on 03/29/20 1200 Gabapentin (Gabapentin) 600 Mg Tablet, 1,200 MG PO TID, (Reported) Entered as Reported by: PEREZ HENDERSON on 03/29/20 1200 Glimepiride (Glimepiride) 2 Mg Tablet, 2 MG PO BID, (Reported) Entered as Reported by: PEREZ HENDERSON on 03/29/20 1200 Haloperidol (Haloperidol) 10 Mg Tablet, 10 MG PO TID, (Reported) Entered as Reported by: PEREZ HENDERSON on 03/29/20 1200 Hydrocodone/Acetaminophen (Hydrocodone-Acetamin 5-325 mg) 1 Each Tablet, 1 TAB PO Q6H PRN for PAIN-MODERATE (5-7) Prescribed by: MAUREEN PARSONS on 08/18/20 1653 Hydrocodone/Acetaminophen (Hydrocodone-Acetamin 5-325 mg) 1 Each Tablet, 1 TAB PO Q8H PRN for PAIN-SEVERE (8-10) Prescribed by: TASH ALARCON on 12/01/20 230 Lurasidone HCl (Latuda) 120 Mg Tablet, 120 MG PO 1800, (Reported) Entered as Reported by: PEREZ HENDERSON on 03/29/20 1200 Lurasidone HCl (Latuda) 40 Mg Tablet, 40 MG PO 1800, (Reported) Entered as Reported by: PEREZ HENDERSON on 03/29/20 1200 Montelukast Sodium (Montelukast Sodium) 10 Mg Tablet, 10 MG PO DAILY, (Reported) Entered as Reported by: PEREZ HENDERSON on 03/29/20 1200 Ondansetron (Ondansetron Odt) 4 Mg Tab.rapdis, 4 MG PO Q6H PRN for NAUSEA/VOMITING Prescribed by: TASH ALARCON on 09/20/20 2318 Ondansetron (Ondansetron Odt) 8 Mg Tab.rapdis, 8 MG PO Q6H PRN for NAUSEA/VOMITING Prescribed by: RAJAT SPARKS on 07/22/21 1540 Phenytoin Sodium Extended (Phenytoin Sodium Extended) 200 Mg Capsule, 200 MG PO BID, (Reported) Entered as Reported by: PEREZ HENDERSON on 03/29/201199 Potassium Chloride (Potassium Chloride) 20 Meq Tablet.er, 20 MEQ PO DAILY Prescribed by: RADHA ESPINOZA on 06/14/21 1315 Prednisone (Prednisone) 20 Mg Tab, 40 MG PO DAILY Prescribed by: EMILY DOMÍNGUEZ on 10/03/20 1914 Prednisone (Prednisone) 20 Mg Tab, 40 MG PO DAILY Prescribed by: RAJAT SPARKS on 07/22/21 1540 Quetiapine Fumarate (Quetiapine Fumarate) 100 Mg Tablet, 300 MG PO DAILY, (Reported) Entered as Reported by: PEREZ HENDERSON on 03/29/20 1200 Rivaroxaban (Xarelto) 20 Mg Tablet, 20 MG PO DAILY, (Reported) Entered as Reported by: PEREZ HENDERSON on 03/29/20 1200 Topiramate (Topiramate) 100 Mg Tablet, 200 MG PO BID, (Reported) Entered as Reported by: PEREZ HENDERSON on 03/29/20 1200 Trazodone HCl (Trazodone HCl) 100 Mg Tablet, 200 MG PO HS, (Reported) Entered as Reported by: PEREZ HENDERSON on 03/29/20 1200 Venlafaxine HCl (Venlafaxine HCl ER) 150 Mg Cap.er.24h, 300 MG PO DAILY, (Reported) Entered as Reported by: PEREZ HENDERSON on 03/29/201199 Review of Systems Review of Systems Constitutional: see HPI EENTM: see HPI Respiratory: no symptoms reported Cardiovascular: no symptoms reported Gastrointestinal: abdominal pain, nausea, vomiting Genitourinary: no symptoms reported Musculoskeletal: no symptoms reported Skin: no symptoms reported Psychiatric/Neurological: No Symptoms Reported Hematologic/Lymphatic: No Symptoms Reported Immunological/Allergic: no symptoms reported Past Aukxhio-Zimdki-Szrnso Hx Patient Social History Tobacco Use?: Yes Tobacco type used: Cigarettes Smoking Status: Current Everyday Smoker Use of E-Cig and/or Vaping dev: No Substance use?: No Alcohol Use?: No Immunizations Up To Date First/Initial COVID19 Vaccinat: 2020 Second COVID19 Vaccination Magdaleno: 2020 COVID19 Vaccine Director Of Public 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: MODERNA Seasonal Allergies Seasonal Allergies: No Past Medical History Surgery/Hospitalization HX: Mood disorder; COPD; Neuropathy; Frequent falls; HTN; Fibromyalgia; Surgeries: Yes (HIP, suprapubic catheter, Dental) Appendectomy, Gallbladder, Hysterectomy, Orthopedic Respiratory: Yes Asthma, Pneumonia, Chronic Bronchitis, Pulmonary Embolism, COPD, Emphysema Cardiac: Yes (CHF) Neurological: Yes Neuropathy 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 Disorders: No 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 Sexually Transmitted Disease: No HIV/AIDS: No Genitourinary: Yes Kidney Stones, Neurogenic Bladder, UTI-Chronic Gastrointestinal: Yes Abdominal Hernia, Gastroesophageal Reflux, Chronic Constipation, Irritable Bowel Musculoskeletal: Yes Arthritis, Fibromyalgia, Back Injury, Chronic Back Pain, Fractures, Spasms Endocrine: Yes Diabetes, Insulin dep, Hypothyroidsim HEENT: No Hearing Impairment: Hard of Hearing Cancer: Yes Ovarian Psychosocial: Yes ADD/ADHD, Bipolar, Schizophrenia Integumentary: No Blood Disorders: No Family Medical History No Pertinent Family Hx Physical Exam Vital Signs Vital Signs - First Documented 07/22/21 13:18 Temp 35.9 Pulse 84 Resp 22 B/P (MAP) 132/89 (103) Pulse Ox 91 O2 Delivery Nasal Cannula O2 Flow Rate 2.00 Capillary Refill : Less Than 3 Seconds Height, Weight, BMI Height: '" Weight: 275lbs. oz. 124.774812ba; 45.00 BMI Method:Stated General Appearance: Chronically ill, Obese, Other (Lethargic, falls asleep during conversation. Oxygen saturation 86% on room air on arrival. She states that she has oxygen as needed at home.) Eyes: Bilateral Eye Normal Inspection, Bilateral Eye PERRL, Bilateral Eye EOMI Neck: Full Range of Motion, Normal Inspection Respiratory: No Accessory Muscle Use, No Respiratory Distress, Decreased Breath Sounds, Rhonci Cardiovascular: Regular Rate, Rhythm, Normal Peripheral Pulses Gastrointestinal: Normal Bowel Sounds, Soft, Tenderness Extremity: Normal Capillary Refill, Normal Inspection Neurologic/Psychiatric: Alert, Oriented x3 Skin: Normal Color, Warm/Dry Focused Exam Lactate Level 07/22/21 13:28: Lactic Acid Level 1.04 Lactic Acid Level Laboratory Tests Test 07/22/21 13:28 Lactic Acid Level 1.04 MMOL/L (0.50-2.00) Progress/Results/Core Measures Suspected Sepsis SIRS Temperature: Pulse: 84 Respiratory Rate: 22 Laboratory Tests 07/22/21 13:28: White Blood Count 16.6H Blood Pressure 132 /89 Mean: 103 07/22/21 13:28: Lactic Acid Level 1.04 Laboratory Tests 07/22/21 13:28: Creatinine 0.91, INR Comment 1.3, Platelet Count 256, Total Bilirubin 0.6 Results/Orders Lab Results Laboratory Tests Test 07/22/21 13:25 07/22/21 13:28 07/22/21 14:02 07/22/21 14:53 Range/Units Blood Gas Puncture Site L RAD Blood Gas Patient Temperature 35.9 Arterial Blood pH 7.29 *L 7.37-7.43 Arterial Blood Partial Pressure CO2 52 H 35-45 MMHG Arterial Blood Partial Pressure O2 53 L 79-93 MMHG Arterial Blood HCO3 24 23-27 MMOL/L Arterial Blood Total CO2 26.1 21.0-31.0 MMOL/L Arterial Blood Oxygen Saturation 90 L 94-100 % Arterial Blood Base Excess -1.5 -2.5-2.5 MMOL/L Eliu Test YES-POS Blood Gas Ventilator Setting NO Blood Gas Inspired Oxygen 2L White Blood Count 16.6 H 4.3-11.0 10^3/uL Red Blood Count 5.25 H 3.80-5.11 10^6/uL Hemoglobin 16.9 H 11.5-16.0 g/dL Hematocrit 52 35-52 % Mean Corpuscular Volume 99 80-99 fL Mean Corpuscular Hemoglobin 32 25-34 pg Mean Corpuscular Hemoglobin Concent 33 32-36 g/dL Red Cell Distribution Width 13.8 10.0-14.5 % Platelet Count 256 130-400 10^3/uL Mean Platelet Volume 11.0 9.0-12.2 fL Immature Granulocyte % (Auto) 1 % Neutrophils (%) (Auto) 77 H 42-75 % Lymphocytes (%) (Auto) 13 12-44 % Monocytes (%) (Auto) 7 0-12 % Eosinophils (%) (Auto) 1 0-10 % Basophils (%) (Auto) 0 0-10 % Neutrophils # (Auto) 12.9 H 1.8-7.8 10^3/uL Lymphocytes # (Auto) 2.2 1.0-4.0 10^3/uL Monocytes # (Auto) 1.2 H 0.0-1.0 10^3/uL Eosinophils # (Auto) 0.2 0.0-0.3 10^3/uL Basophils # (Auto) 0.1 0.0-0.1 10^3/uL Immature Granulocyte # (Auto) 0.1 0.0-0.1 10^3/uL Neutrophils % (Manual) 74 % Lymphocytes % (Manual) 15 % Monocytes % (Manual) 10 % Eosinophils % (Manual) 1 % Blood Morphology Comment NORMAL Prothrombin Time 16.8 H 12.2-14.7 SEC INR Comment 1.3 0.8-1.4 Activated Partial Thromboplast Time 47 H 24-35 SEC Sodium Level 133 L 135-145 MMOL/L Potassium Level 3.7 3.6-5.0 MMOL/L Chloride Level 98 98-107 MMOL/L Carbon Dioxide Level 25 21-32 MMOL/L Anion Gap 10 5-14 MMOL/L Blood Urea Nitrogen 9 7-18 MG/DL Creatinine 0.91 0.60-1.30 MG/DL Estimat Glomerular Filtration Rate 77 BUN/Creatinine Ratio 10 Glucose Level 159 H 70-105 MG/DL Lactic Acid Level 1.04 0.50-2.00 MMOL/L Calcium Level 9.1 8.5-10.1 MG/DL Corrected Calcium 8.9 8.5-10.1 MG/DL Total Bilirubin 0.6 0.1-1.0 MG/DL Aspartate Amino Transf (AST/SGOT) 21 5-34 U/L Alanine Aminotransferase (ALT/SGPT) 27 0-55 U/L Alkaline Phosphatase 146 H 40-136 U/L B-Type Natriuretic Peptide 10.1 <100.0 PG/ML Total Protein 7.8 6.4-8.2 GM/DL Albumin 4.2 3.2-4.5 GM/DL Lipase 37 8-78 U/L Ammonia 25 11-32 UMOL/L Serum Alcohol < 10 <10 MG/DL Urine Color YELLOW Urine Clarity CLEAR Urine pH 6.0 5-9 Urine Specific [place] 1.010 L 1.016-1.022 Urine Protein NEGATIVE NEGATIVE Urine Glucose (UA) NEGATIVE NEGATIVE Urine Ketones NEGATIVE NEGATIVE Urine Nitrite NEGATIVE NEGATIVE Urine Bilirubin NEGATIVE NEGATIVE Urine Urobilinogen 1.0 < = 1.0 MG/DL Urine Leukocyte Esterase NEGATIVE NEGATIVE Urine RBC (Auto) NEGATIVE NEGATIVE Urine RBC NONE /HPF Urine WBC 0-2 /HPF Urine Squamous Epithelial Cells 5-10 /HPF Urine Crystals NONE /LPF Urine Bacteria FEW H /HPF Urine Casts PRESENT /LPF Urine Hyaline Casts 0-2 H /LPF Urine Mucus SMALL H /LPF Urine Culture Indicated CULTURE PENDING Urine Opiates Screen POSITIVE H NEGATIVE Urine Oxycodone Screen NEGATIVE NEGATIVE Urine Methadone Screen NEGATIVE NEGATIVE Urine Propoxyphene Screen NEGATIVE NEGATIVE Urine Barbiturates Screen NEGATIVE NEGATIVE Ur Tricyclic Antidepressants Screen NEGATIVE NEGATIVE Urine Phencyclidine Screen NEGATIVE NEGATIVE Urine Amphetamines Screen POSITIVE H NEGATIVE Urine Methamphetamines Screen POSITIVE H NEGATIVE Urine Benzodiazepines Screen NEGATIVE NEGATIVE Urine Cocaine Screen NEGATIVE NEGATIVE Urine Cannabinoids Screen NEGATIVE NEGATIVE My Orders Orders - RAJAT SPARKS APRN Arterial Blood Gas (07/22/21 13:25) Cbc With Automated Diff (07/22/21 13:35) Comprehensive Metabolic Panel (07/22/21 13:35) Blood Culture (07/22/21 13:35) Sputum Culture (07/22/21 13:35) Urinalysis (07/22/21 13:35) Urine Culture (07/22/21 13:35) Protime With Inr (07/22/21 13:35) Partial Thromboplastin Time (07/22/21 13:35) Chest 1 View, Ap/Pa Only (07/22/21 13:35) Ed Iv/Invasive Line Start (07/22/21 13:35) Ed Iv/Invasive Line Start (07/22/21 13:35) Vital Signs Adult Sepsis Patie Q15M (07/22/21 13:35) O2 (07/22/21 13:35) Remove Rings In Anticipation O (07/22/21 13:35) Lactic Acid Analyzer (07/22/21 13:35) Bnp Bibb (07/22/21 13:35) Lipase (07/22/21 13:35) Ed Iv/Invasive Line Start (07/22/21 13:35) Ns Iv 1000 Ml (Sodium Chloride 0.9%) (07/22/21 13:45) Ondansetron Injection (Zofran Injectio (07/22/21 13:45) Manual Differential (07/22/21 13:28) Ammonia (07/22/21 13:58) Drug Screen Stat (Urine) (07/22/21 13:58) Alcohol (07/22/21 13:58) Ct Stefani Chest/Noang Abd-Pelv W (07/22/21 14:21) Iohexol Injection (Omnipaque 350 Mg/Ml 1 (07/22/21 15:15) Received Contrast (Hold Metformin- Contr (07/22/21 15:15) Ns (Ivpb) (Sodium Chloride 0.9% Ivpb Bag (07/22/21 15:15) Naloxone Injection (Narcan Injection) (07/22/21 15:30) Naloxone Injection (Narcan Injection) (07/22/21 15:30) Dexamethasone Injection (Decadron Inje (07/22/21 15:45) Cefdinir Capsule (Omnicef Capsule) (07/22/21 15:45) Albuterol/Ipra Inhalation Soln (Duoneb I (07/22/21 15:45) Svn Small Volume Nebulizer (07/22/21 15:35) Medications Given in ED Current Medications Medications Dose Ordered Sig/Kurtis Route Start Time Stop Time Status Last Admin Dose Admin Cefdinir 300 mg ONCE ONCE PO 07/22/21 15:45 07/22/21 15:46 DC 07/22/21 15:48 300 MG Dexamethasone Sodium Phosphate 10 mg ONCE ONCE IV 07/22/21 15:45 07/22/21 15:46 DC 07/22/21 15:48 10 MG Iohexol 100 ml ONCE ONCE IV 07/22/21 15:15 07/22/21 15:16 DC 07/22/21 15:20 99 ML Naloxone HCl 0.8 mg ONCE ONCE IV 07/22/21 15:30 07/22/21 15:31 DC 07/22/21 15:29 0.8 MG Ondansetron HCl 8 mg ONCE ONCE IVP 07/22/21 13:45 07/22/21 13:46 DC 07/22/21 13:51 8 MG Sodium Chloride 100 ml ONCE ONCE IV 07/22/21 15:15 07/22/21 15:16 DC 07/22/21 15:20 80 ML Vital Signs/I&O 07/22/21 13:18 Temp 35.9 Pulse 84 Resp 22 B/P (MAP) 132/89 (103) Pulse Ox 91 O2 Delivery Nasal Cannula O2 Flow Rate 2.00 Capillary Refill : Less Than 3 Seconds Blood Pressure Mean: 103 Departure Communication (Admissions) Family Conversation NAME: JERALD VELAZQUEZ REC#: [id number] PT STATUS: REG ER : 1970 PHYSICIAN: RAJAT SPARKS APRN ADMIT DATE: 07/22/21/ER Draft Date of Exam:07/22/21 CT STEFANI CHEST/NOANG ABD-PELV W INDICATION: Weight loss, abd pain, nausea. CTA chest, abdomen and pelvis. TECHNIQUE: Thin axial sections through the chest, abdomen and pelvis are obtained following intravenous contrast bolus. Multiplanar MIP images were reconstructed and reviewed. All CT scans use one or more of the following dose optimizing techniques: automated exposure control, MA and/or KvP adjustment based on patient size and exam type or iterative reconstruction. COMPARISON: CTA chest from 07/27/2019. FINDINGS: CTA CHEST: No pulmonary emboli. Heart is normal in size with mild flattening of the ventricular septum and reflux of contrast material at the IVC which can be seen with elevated right heart pressures. Normal caliber thoracic aorta without dissection. No pleural effusion or pneumothorax. No intrathoracic lymphadenopathy. Lungs are clear. Specifically, no pneumonia or edema. No suspicious pulmonary nodules. No worrisome focal osseous lesions. CT ABDOMEN PELVIS: No free intraperitoneal air or fluid. Persistent low-attenuation liver likely due to steatosis. Cholecystectomy. No biliary duct dilatation or focal hepatic lesion. The spleen and pancreas are normal. No adrenal mass. No renal mass or obstructive uropathy. No renal or ureteral stones. The stomach is partially filled fluid and has no worrisome wall thickening. No dilated loops of bowel to indicate a bowel obstruction. No pericolonic inflammatory change. The majority of the descending colon is decompressed. Appendix is not seen and may be surgically absent. Normal caliber abdominal aorta with scattered atherosclerotic plaquing. There is an IVC filter within the infrarenal IVC. Urinary bladder unremarkable. Bilateral intramedullary nails are partially imaged in the femurs. There is some heterotopic ossification at the cranial aspect of both greater trochanters which is likely postoperative in nature. IMPRESSION: 1. No acute cardiopulmonary process. Specifically, no pulmonary emboli or acute aortic syndrome. 2. No acute obstructive or inflammatory process in the abdomen and pelvis. Dictated on workstation # [id number] Dict: 07/22/21 1531 Trans: 07/22/21 1541 PJE [id number] Interpreted by: LATISHA ZEPEDA MD Electronically signed by: [id number]--I did discuss with her CODE STATUS. Her sister is at the bedside. I posed the question if she should need a ventilator wpuld she want that. She immediately replies "no". Sister agrees. I then asked if we were to find her /without a pulse should we do CPR to try to resuscitate her and both she and her sister quickly replied "no". As such we will make her DO NOT RESUSCITATE/DO NOT INTUBATE status. Based on her appearance at this time, this may be useful information in the near future. [id number] has been unrevealing. She has oxygen at home. She is little wheezy. I will put her on some antibiotics and steroids for COPD exacerbation. I will find any concerning cause for her abdominal pain though the CT report is pending. She informs me that she has not done methamphetamine since last S and that was the first time that she is done it in 10 years. Discussed with her that I have no reason to believe her as she told me initially that she did not do it at all. Discussed with her the need to quit smoking. We will discharge home if CT is unremarkable. Blood pressure is 125/74 heart rate is 83. Blood pressure has been in the 120s to 130 systolic since arrival. 1600-ordered a DuoNeb here but patient refused it. Oxygen is 89% on room air. She calls me into the room because she states she does not want me to think that she is a meth addict. She states that it must have been in her nephews beer because she drank some of it the other day and she thought his beer would be safe. Impression Primary Impression: Somnolence Additional Impressions: Polysubstance abuse COPD with exacerbation Disposition: 01 HOME, SELF-CARE Condition: Stable Departure-Patient Inst. Decision time for Depature: 15:35 Referrals: [facility] (PCP) Primary Care Physician ANA HASSAN APRN (Family) Primary Care Physician Patient Instructions: Exacerbation of COPD, Substance Use Disorder ED Add. Discharge Instructions: 1. The methamphetamine use will cause weight loss abdominal cramping nausea. You need to reduce your smoking, 2 packs a day is obviously excessive. You need to take the steroids and antibiotics for the flareup of your COPD caused by her excessive smoking. Wear your oxygen as needed. Return to ER for any concerns. All discharge instructions reviewed with patient and/or family. Voiced understanding. Scripts Ondansetron (Ondansetron Odt) 8 Mg Tab.rapdis 8 MG PO Q6H PRN for NAUSEA/VOMITING, #14 TAB Prov: RAJAT SPARKS APRN 07/22/21 Prednisone (Prednisone) 20 Mg Tab 40 MG PO DAILY, #8 TAB Prov: RAJAT SPARKS APRN 07/22/21 Cefuroxime Axetil (Cefuroxime) 250 Mg Tablet 250 MG PO BID, #10 TAB Prov: RAJAT SPARKS APRN 07/22/21 RAJAT SPARKS APRN Jul 22, 2021 13:39
[2021-07-22 13:45] LABS: ALBUMIN 4.2 GM/DL (3.2-4.5); BASOPHILS # (AUTO) 0.1 10^3/uL (0.0-0.1); BASOPHILS % (AUTO) 0 % (0-10); EOSINOPHILS # (AUTO) 0.2 10^3/uL (0.0-0.3); EOSINOPHILS % (AUTO) 1 % (0-10); HEMATOCRIT 52 % (35-52); HEMOGLOBIN 16.9 g/dL (11.5-16.0); LYMPHOCYTES # (AUTO) 2.2 10^3/uL (1.0-4.0); LYMPHOCYTES % (AUTO) 13 % (12-44); MEAN CORPUSCULAR HEMOGLOBIN 32 pg (25-34); MEAN CORPUSCULAR HGB CONC 33 g/dL (32-36); MEAN CORPUSCULAR VOLUME 99 fL (80-99); MONOCYTES # (AUTO) 1.2 10^3/uL (0.0-1.0); MONOCYTES % (AUTO) 7 % (0-12); NEUTROPHILS # (AUTO) 12.9 10^3/uL (1.8-7.8); NEUTROPHILS % (AUTO) 77 % (42-75); PLATELET COUNT 256 10^3/uL (130-400); POTASSIUM 3.7 MMOL/L (3.6-5.0); WHITE BLOOD COUNT 16.6 10^3/uL (4.3-11.0)
[2021-07-22] MEDS ORDERED: NS IV 1000 ML 1,000 ML IV SCH (13:45)
[2021-07-22] MEDS ORDERED: ONDANSETRON 4 MG/2 ML (SDV) Z0FRAN IVP ONE (13:45)
[2021-07-22 13:46] LABS: CALCIUM 9.1 MG/DL (8.5-10.1)
[2021-07-22 13:47] LABS: TOTAL PROTEIN 7.8 GM/DL (6.4-8.2)
[2021-07-22 13:49] LABS: BILIRUBIN,TOTAL 0.6 MG/DL (0.1-1.0)
[2021-07-22 13:51] LABS: CREATININE SERUM 0.91 MG/DL (0.60-1.30); INR 1.3 (0.8-1.4); PROTHROMBIN TIME PATIENT 16.8 SEC (12.2-14.7)
[2021-07-22 14:12] LABS: EOSINOPHILS % (MANUAL) 1 %; LYMPHOCYTES % (MANUAL) 15 %; MONOCYTES % (MANUAL) 10 %; NEUTROPHILS % (MANUAL) 74 %; RBC MORPH NORMAL
--- NOTE | 2021-07-22 14:13 | Diagnostic Imaging Report ---
INDICATION: Weakness. COMPARISON: 07/02/2021. FINDINGS: Single frontal view of the chest demonstrates normal heart size and pulmonary vascularity. The lungs are well aerated and clear. No large pleural effusion or pneumothorax is seen. The visualized osseous structures show no acute abnormalities. IMPRESSION: 1. No acute cardiopulmonary process. Dictated by: Dictated on workstation # [id number]
[2021-07-22 14:36] LABS: AMMONIA 25 UMOL/L (11-32)
[2021-07-22 15:05] LABS: BILIRUBIN,URINE NEGATIVE (NEGATIVE); CLARITY,URINE CLEAR; COLOR,URINE YELLOW; GLUCOSE, URINE (UA) NEGATIVE (NEGATIVE); KETONES,URINE NEGATIVE (NEGATIVE); LEUKOCYTE ESTERASE ,URINE NEGATIVE (NEGATIVE); NITRITE,URINE NEGATIVE (NEGATIVE); PROTEIN,URINE NEGATIVE (NEGATIVE)
[2021-07-22] MEDS ORDERED: NS 100 ML (IVPB) BAG IV ONE (15:15)
[2021-07-22] MEDS ORDERED: IOHEXOL 350 MG/ML 100 ML (OMNIPAQUE 350) VIAL IV ONE (15:15)
[2021-07-22] MEDS ORDERED: HOLD METFORMIN - RECEIVED CONTRAST 20 ML VIAL IV SCH (15:15)
[2021-07-22 15:16] LABS: AMPHETAMINE SCREEN, URINE POSITIVE (NEGATIVE); BARBITURATE SCREEN URINE NEGATIVE (NEGATIVE); BENZODIAZEPINES SCREEN URINE NEGATIVE (NEGATIVE); CANNABINOID SCREEN, URINE NEGATIVE (NEGATIVE); COCAINE SCREEN URINE NEGATIVE (NEGATIVE); METHADONE STAT NEGATIVE (NEGATIVE); METHAMPHETAMINE SCREEN URINE S POSITIVE (NEGATIVE); OPIATE SCREEN URINE POSITIVE (NEGATIVE); OXYCODONE STAT NEGATIVE (NEGATIVE); PROPOXYPHENE STAT NEGATIVE (NEGATIVE); TRICYCLIC ANTIDEPRESSANTS SCRE NEGATIVE (NEGATIVE)
[2021-07-22 15:18] LABS: BACTERIA,URINE FEW /HPF; HYALINE CASTS, URINE 0-2 /LPF; WBC,URINE 0-2 /HPF
[2021-07-22] MEDS ORDERED: NALOXONE 0.4 MG/ML 1 ML (NARCAN) VIAL IV ONE ×2 (15:30)
[2021-07-22] MEDS ORDERED: ONDA8TAB13 PO (15:40)
[2021-07-22] MEDS ORDERED: CEFU250T80 PO (15:40)
[2021-07-22] MEDS ORDERED: PRD20T PO (15:40)
--- NOTE | 2021-07-22 15:42 | Diagnostic Imaging Report ---
INDICATION: Weight loss, abd pain, nausea. CTA chest, abdomen and pelvis. TECHNIQUE: Thin axial sections through the chest, abdomen and pelvis are obtained following intravenous contrast bolus. Multiplanar MIP images were reconstructed and reviewed. All CT scans use one or more of the following dose optimizing techniques: automated exposure control, MA and/or KvP adjustment based on patient size and exam type or iterative reconstruction. COMPARISON: CTA chest from 07/27/2019. FINDINGS: CTA CHEST: No pulmonary emboli. Heart is normal in size with mild flattening of the ventricular septum and reflux of contrast material at the IVC which can be seen with elevated right heart pressures. Normal caliber thoracic aorta without dissection. No pleural effusion or pneumothorax. No intrathoracic lymphadenopathy. Lungs are clear. Specifically, no pneumonia or edema. No suspicious pulmonary nodules. No worrisome focal osseous lesions. CT ABDOMEN PELVIS: No free intraperitoneal air or fluid. Persistent low-attenuation liver likely due to steatosis. Cholecystectomy. No biliary duct dilatation or focal hepatic lesion. The spleen and pancreas are normal. No adrenal mass. No renal mass or obstructive uropathy. No renal or ureteral stones. The stomach is partially filled fluid and has no worrisome wall thickening. No dilated loops of bowel to indicate a bowel obstruction. No pericolonic inflammatory change. The majority of the descending colon is decompressed. Appendix is not seen and may be surgically absent. Normal caliber abdominal aorta with scattered atherosclerotic plaquing. There is an IVC filter within the infrarenal IVC. Urinary bladder unremarkable. Bilateral intramedullary nails are partially imaged in the femurs. There is some heterotopic ossification at the cranial aspect of both greater trochanters which is likely postoperative in nature. IMPRESSION: 1. No acute cardiopulmonary process. Specifically, no pulmonary emboli or acute aortic syndrome. 2. No acute obstructive or inflammatory process in the abdomen and pelvis. Dictated by: Dictated on workstation # [id number]
[2021-07-22] MEDS ORDERED: CEFDINIR 300 MG (OMNICEF) CAP PO ONE (15:45)
[2021-07-22] MEDS: RT-ALBUTEROL/IPRATROPIUM 3 ML (DUONEB) VIAL INH ONE ×2 (15:48→15:55)
[2021-07-22 16:02] VITALS: BP 127/88
== END 2021-07-22 16:02 | disposition home or self-care (01) ==
LOC: EDUNIT# 13:14 → ER 13:16
DX: R40.0 Somnolence (principal); F19.10 Other psychoactive substance abuse, uncomplicated; J44.1 Chronic obstructive pulmonary disease with (acute) exacerbation; E66.9 Obesity, unspecified; I50.9 Heart failure, unspecified; F31.9 Bipolar disorder, unspecified; I11.0 Hypertensive heart disease with heart failure; F20.9 Schizophrenia, unspecified; G89.29 Other chronic pain; M54.9 Dorsalgia, unspecified; F17.210 Nicotine dependence, cigarettes, uncomplicated; Z68.42 Body mass index [BMI] 45.0-49.9, adult; Z86.711 Personal history of pulmonary embolism; Z79.01 Long term (current) use of anticoagulants; Z79.891 Long term (current) use of opiate analgesic; Z79.899 Other long term (current) drug therapy
CPT/HCPCS: 36415; 71045; 71275; 74177; 80053; 80306; 80320; 81000; 82140; 82805; 83605; 83690; 83880; 85007; 85027; 85610; 85730; 87040; 87088

== ENCOUNTER 2021-08-26 19:42 | Emergency (ER) | payer MEDICAID ==
[~2021-08-26] VITALS: Ht 157.4 cm; Wt 124.7 kg
[~2021-08-26 19:42] MED LIST changes: +CEFU250T80 PO; +LURA40TA2 PO; -LURA40TA3 PO; +ONDA8TAB13 PO
[2021-08-26] MEDS ORDERED: NS IV 1000 ML 1,000 ML IV STA (19:53)
[2021-08-26] MEDS ORDERED: ONDANSETRON 4 MG/2 ML (SDV) Z0FRAN IVP STA (19:53)
[2021-08-26 19:58] LABS: BASOPHILS # (AUTO) 0.1 10^3/uL (0.0-0.1); BASOPHILS % (AUTO) 0 % (0-10); EOSINOPHILS # (AUTO) 0.1 10^3/uL (0.0-0.3); EOSINOPHILS % (AUTO) 1 % (0-10); HEMATOCRIT 51 % (35-52); LYMPHOCYTES % (AUTO) 14 % (12-44); MEAN CORPUSCULAR HEMOGLOBIN 30 pg (25-34); MEAN CORPUSCULAR HGB CONC 33 g/dL (32-36); MEAN CORPUSCULAR VOLUME 91 fL (80-99); MEAN PLATELET VOLUME 9.5 fL (9.0-12.2); MONOCYTES # (AUTO) 0.9 10^3/uL (0.0-1.0); MONOCYTES % (AUTO) 6 % (0-12); NEUTROPHILS # (AUTO) 11.9 10^3/uL (1.8-7.8); NEUTROPHILS % (AUTO) 79 % (42-75); PLATELET COUNT 243 10^3/uL (130-400)
--- NOTE | 2021-08-26 20:00 | ED General ---
General Chief Complaint: General Problems/Pain Stated Complaint: NAUSEA Source of Information: Patient, Old Records History of Present Illness Date Seen by Provider: Aug 26, 2021 Time Seen by Provider: 19:45 Initial Comments 51-year-old female presenting with multiple complaints that have been present all week. She states that she has been getting sick since Sunday with ear pain left greater than right. She has been dizzy and lightheaded. She has had nausea with diarrhea. She has had decreased urine output. She has been coughing more than usual. She has not been able to see her regular provider, nurse practitioner Anand, at the [facility] clinic because she has not been able to make it to the office. However today she was able to make it to the emergency department at 7:45 PM. She states that she has been getting sicker all week and feeling worse. She states that she does not have a thermometer so she was unsure if she had any fevers at home. She does not have a fever here on arrival to the ED. Timing/Duration: 1 Week Severity: Severe Associated Systoms: No Chest Pain; Cough; No Diaphoresis, No Fever/Chills, No Headaches, No Loss of Appetite; Malaise, Nausea/Vomiting (Nausea but no vomiting); No Rash, No Seizure; Shortness of Air (Chronic shortness of breath from COPD); No Syncope; Weakness (Generalized weakness) Allergies and Home Medications Allergies Coded Allergies: doxycycline (Unverified Allergy, Mild, nauseated, 08/01/09) spinach (Unverified Allergy, Mild, 08/01/09) alprazolam (Verified Allergy, Unknown, 07/18/19) diazepam (Verified Allergy, Unknown, 07/18/19) sumatriptan (Verified Allergy, Unknown, 07/18/19) Patient Home Medication List Home Medication List Reviewed: Yes Albuterol Sulfate (Ventolin Hfa) 1 Puff Puff, 2 PUFF INH Q4H PRN for COUGH, (Reported) Entered as Reported by: PEREZ HENDERSON on 03/29/20 1200 Albuterol/Ipratropium (Combivent Respimat Inhal [place]) 4 Gm Aero, 2 PUFF IH TID Prescribed by: EMILY DOMÍNGUEZ on 10/03/20 191 Amoxicillin/Potassium Clav (Augmentin 875-125 Tablet) 1 Each Tablet, 1 EACH PO BID Prescribed by: EMILY DOMÍNGUEZ on 10/03/201913 Amoxicillin/Potassium Clav (Amox Tr-K Clv 875-125 mg Tab) 1 Each Tablet, 1 EACH PO BID Prescribed by: TASH ALARCON on 08/26/212124 Cefdinir (Cefdinir) 300 Mg Capsule, 300 MG PO BID Prescribed by: LEONOR CAMARGO on 03/29/20 1340 Cefuroxime Axetil (Cefuroxime) 250 Mg Tablet, 250 MG PO BID Prescribed by: RAJAT SPARKS on 07/22/21 1540 Cephalexin (Cephalexin) 500 Mg Capsule, 500 MG PO TID Prescribed by: TASH ALARCON on 02/27/21 06 Cephalexin (Cephalexin) 500 Mg Capsule, 500 MG PO QID Prescribed by: TASH ALARCON on 03/14/212028 Cyclobenzaprine HCl (Cyclobenzaprine HCl) 10 Mg Tablet, 10 MG PO Q8H PRN for SPASMS Prescribed by: TASH ALARCON on 06/29/212207 Fluticasone Propionate (Flonase Allergy Relief) 9.9 Ml [place].susp, 1 SPRAY NS DAILY Prescribed by: TASH ALARCON on 02/27/21632 Furosemide (Furosemide) 40 Mg Tablet, 40 MG PO BID, (Reported) Entered as Reported by: PEREZ HENDERSON on 03/29/20 1200 Gabapentin (Gabapentin) 600 Mg Tablet, 1,200 MG PO TID, (Reported) Entered as Reported by: PEREZ HENDERSNO on 03/29/20 1200 Glimepiride (Glimepiride) 2 Mg Tablet, 2 MG PO BID, (Reported) Entered as Reported by: PEREZ HENDERSON on 03/29/20 1200 Haloperidol (Haloperidol) 10 Mg Tablet, 10 MG PO TID, (Reported) Entered as Reported by: PEREZ HENDERSON on 03/29/20 1200 Hydrocodone/Acetaminophen (Hydrocodone-Acetamin 5-325 mg) 1 Each Tablet, 1 TAB PO Q6H PRN for PAIN-MODERATE (5-7) Prescribed by: MAUREEN PARSONS on 08/18/20 1653 Hydrocodone/Acetaminophen (Hydrocodone-Acetamin 5-325 mg) 1 Each Tablet, 1 TAB PO Q8H PRN for PAIN-SEVERE (8-10) Prescribed by: TASH ALARCON on 12/01/20 2309 Lurasidone HCl (Latuda) 120 Mg Tablet, 120 MG PO 1800, (Reported) Entered as Reported by: PEREZ HENDERSON on 03/29/20 1200 Lurasidone HCl (Latuda) 40 Mg Tablet, 40 MG PO 1800, (Reported) Entered as Reported by: PEREZ HENDERSON on 03/29/20 1200 Montelukast Sodium (Montelukast Sodium) 10 Mg Tablet, 10 MG PO DAILY, (Reported) Entered as Reported by: PEREZ HENDERSON on 03/29/20 1200 Ondansetron (Ondansetron Odt) 4 Mg Tab.rapdis, 4 MG PO Q6H PRN for NAUSEA/VOMITING Prescribed by: TASH Aguilar ENYART on 09/20/20 2318 Ondansetron (Ondansetron Odt) 8 Mg Tab.rapdis, 8 MG PO Q6H PRN for NAUSEA/VOMITING Prescribed by: RAJAT SPARKS on 07/22/21 1540 Ondansetron (Ondansetron Odt) 4 Mg Tab.rapdis, 4 MG PO Q8H PRN for NAUSEA/VOMITING Prescribed by: TASH HANYART on 08/26/212124 Phenytoin Sodium Extended (Phenytoin Sodium Extended) 200 Mg Capsule, 200 MG PO BID, (Reported) Entered as Reported by: PEREZ HENDERSON on 03/29/20 1200 Potassium Chloride (Potassium Chloride) 20 Meq Tablet.er, 20 MEQ PO DAILY Prescribed by: RADHA ESPINOZA on 06/14/21 1315 Prednisone (Prednisone) 20 Mg Tab, 40 MG PO DAILY Prescribed by: EMILY DOMÍNGUEZ on 10/03/20 1914 Prednisone (Prednisone) 20 Mg Tab, 40 MG PO DAILY Prescribed by: RAJAT SPARKS on 07/22/21 1540 Quetiapine Fumarate (Quetiapine Fumarate) 100 Mg Tablet, 300 MG PO DAILY, (Reported) Entered as Reported by: PEREZ HENDERSON on 03/29/20 1200 Rivaroxaban (Xarelto) 20 Mg Tablet, 20 MG PO DAILY, (Reported) Entered as Reported by: PEREZ HENDERSON on 03/29/20 1200 Topiramate (Topiramate) 100 Mg Tablet, 200 MG PO BID, (Reported) Entered as Reported by: PEREZ HENDERSON on 03/29/20 1200 Trazodone HCl (Trazodone HCl) 100 Mg Tablet, 200 MG PO HS, (Reported) Entered as Reported by: PEREZ HENDERSON on 03/29/20 1200 Venlafaxine HCl (Venlafaxine HCl ER) 150 Mg Cap.er.24h, 300 MG PO DAILY, (Reported) Entered as Reported by: PEREZ HENDERSON on 03/29/20 1200 Review of Systems Review of Systems Constitutional: No chills; dizziness; No fever; weakness EENTM: ear pain (Left greater than right); No ear discharge, No hearing loss, No blurred vision, No double vision, No epistaxis, No nose congestion Respiratory: cough (Acute on chronic cough), short of breath (Chronic shortness of breath); No stridor; wheezing (Chronic wheezing) Cardiovascular: No chest pain Gastrointestinal: diarrhea, nausea; No vomiting Genitourinary: dysuria Musculoskeletal: muscle pain (Generalized body aches) Skin: No rash Psychiatric/Neurological: Anxiety, Weakness (Generalized) Past Ulmagmm-Zeayjh-Hmqsnb Hx Immunizations Up To Date First/Initial COVID19 Vaccinat: 2020 Second COVID19 Vaccination Magdaleno: 2020 Seasonal Allergies Seasonal Allergies: No Past Medical History Surgery/Hospitalization HX: Mood disorder; COPD; Neuropathy; Frequent falls; HTN; Fibromyalgia; Surgeries: Yes (HIP, suprapubic catheter, Dental) Appendectomy, Gallbladder, Hysterectomy, Orthopedic Respiratory: Yes Asthma, Pneumonia, Chronic Bronchitis, Pulmonary Embolism, COPD, Emphysema Cardiac: Yes (CHF) Neurological: Yes Neuropathy 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 Disorders: No 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 [employer]EM[employer] OR 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 Sexually Transmitted Disease: No HIV/AIDS: No Genitourinary: Yes Kidney Stones, Neurogenic Bladder, UTI-Chronic Gastrointestinal: Yes Abdominal Hernia, Gastroesophageal Reflux, Chronic Constipation, Irritable Bowel Musculoskeletal: Yes Arthritis, Fibromyalgia, Back Injury, Chronic Back Pain, Fractures, Spasms Endocrine: Yes Diabetes, Insulin dep, Hypothyroidsim HEENT: No Hearing Impairment: Hard of Hearing Cancer: Yes Ovarian Psychosocial: Yes ADD/ADHD, Bipolar, Schizophrenia Integumentary: No Blood Disorders: No Family Medical History No Pertinent Family Hx Physical Exam Vital Signs Vital Signs - First Documented 08/26/21 19:44 Temp 36.6 Pulse 117 Resp 20 B/P (MAP) 105/55 (72) Pulse Ox 94 O2 Delivery Room Air Capillary Refill : Height, Weight, BMI Height: '" Weight: 275lbs. oz. 124.320666pc; 45.00 BMI Method:Stated General Appearance: Anxious, Chronically ill, Obese HEENT: Moist Mucous Membranes, TM Abnormal (L) (Erythema with dullness) Neck: Full Range of Motion, Normal Inspection, Non Tender, Supple Respiratory: Chest Non Tender, Accessory Muscle Use, Decreased Breath Sounds, Wheezing (Chronic estrogen expiratory wheeze) Cardiovascular: Normal Peripheral Pulses, Tachycardia Gastrointestinal: Normal Bowel Sounds, No Pulsatile Mass, Non Tender, Soft Rectal: Deferred Extremity: Normal Capillary Refill, Normal Inspection, Pedal Edema (1+ bilateral lower extremity) Neurologic/Psychiatric: Alert, Oriented x3, 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-XII Norm as Tested Skin: Warm/Dry Focused Exam Lactate Level 08/26/21 21:00: Lactic Acid Level 0.92 Lactic Acid Level Laboratory Tests Test 08/26/21 21:00 Lactic Acid Level 0.92 MMOL/L (0.50-2.00) Progress/Results/Core Measures Suspected Sepsis SIRS Temperature: Pulse: Respiratory Rate: Laboratory Tests 08/26/21 19:53: White Blood Count 15.0H Blood Pressure / Mean: 08/26/21 21:00: Lactic Acid Level 0.92 Laboratory Tests 08/26/21 19:53: Creatinine 0.67, INR Comment 1.1, Platelet Count 243, Total Bilirubin 0.5 Results/Orders Lab Results Laboratory Tests Test 08/26/21 19:53 08/26/21 20:31 08/26/21 21:00 08/26/21 21:11 Range/Units White Blood Count 15.0 H 4.3-11.0 10^3/uL Red Blood Count 5.62 H 3.80-5.11 10^6/uL Hemoglobin 17.0 H 11.5-16.0 g/dL Hematocrit 51 35-52 % Mean Corpuscular Volume 91 80-99 fL Mean Corpuscular Hemoglobin 30 25-34 pg Mean Corpuscular Hemoglobin Concent 33 32-36 g/dL Red Cell Distribution Width 13.9 10.0-14.5 % Platelet Count 243 130-400 10^3/uL Mean Platelet Volume 9.5 9.0-12.2 fL Immature Granulocyte % (Auto) 1 % Neutrophils (%) (Auto) 79 H 42-75 % Lymphocytes (%) (Auto) 14 12-44 % Monocytes (%) (Auto) 6 0-12 % Eosinophils (%) (Auto) 1 0-10 % Basophils (%) (Auto) 0 0-10 % Neutrophils # (Auto) 11.9 H 1.8-7.8 10^3/uL Lymphocytes # (Auto) 2.0 1.0-4.0 10^3/uL Monocytes # (Auto) 0.9 0.0-1.0 10^3/uL Eosinophils # (Auto) 0.1 0.0-0.3 10^3/uL Basophils # (Auto) 0.1 0.0-0.1 10^3/uL Immature Granulocyte # (Auto) 0.1 0.0-0.1 10^3/uL Neutrophils % (Manual) 82 % Lymphocytes % (Manual) 14 % Monocytes % (Manual) 4 % Prothrombin Time 14.5 12.2-14.7 SEC INR Comment 1.1 0.8-1.4 Activated Partial Thromboplast Time 44 H 24-35 SEC Sodium Level 134 L 135-145 MMOL/L Potassium Level 3.8 3.6-5.0 MMOL/L Chloride Level 98 98-107 MMOL/L Carbon Dioxide Level 19 L 21-32 MMOL/L Anion Gap 17 H 5-14 MMOL/L Blood Urea Nitrogen 11 7-18 MG/DL Creatinine 0.67 0.60-1.30 MG/DL Estimat Glomerular Filtration Rate 107 BUN/Creatinine Ratio 16 Glucose Level 146 H 70-105 MG/DL Calcium Level 9.7 8.5-10.1 MG/DL Corrected Calcium 9.5 8.5-10.1 MG/DL Magnesium Level 1.8 1.6-2.4 MG/DL Total Bilirubin 0.5 0.1-1.0 MG/DL Aspartate Amino Transf (AST/SGOT) 34 5-34 U/L Alanine Aminotransferase (ALT/SGPT) 67 H 0-55 U/L Alkaline Phosphatase 208 H 40-136 U/L Troponin I < 0.30 <0.30 NG/ML Pro-B-Type Natriuretic Peptide 52.9 <75.0 PG/ML Total Protein 7.8 6.4-8.2 GM/DL Albumin 4.3 3.2-4.5 GM/DL Lipase 21 8-78 U/L Urine Color YELLOW Urine Clarity CLOUDY Urine pH 6.0 5-9 Urine Specific Golf 1.010 L 1.016-1.022 Urine Protein TRACE H NEGATIVE Urine Glucose (UA) NEGATIVE NEGATIVE Urine Ketones NEGATIVE NEGATIVE Urine Nitrite POSITIVE H NEGATIVE Urine Bilirubin NEGATIVE NEGATIVE Urine Urobilinogen 1.0 < = 1.0 MG/DL Urine Leukocyte Esterase 2+ H NEGATIVE Urine RBC (Auto) TRACE-I H NEGATIVE Urine RBC NONE /HPF Urine WBC TNTC H /HPF Urine Crystals NONE /LPF Urine Bacteria LARGE H /HPF Urine Casts NONE /LPF Urine Mucus NEGATIVE /LPF Urine Culture Indicated YES Urine Opiates Screen POSITIVE H NEGATIVE Urine Oxycodone Screen NEGATIVE NEGATIVE Urine Methadone Screen NEGATIVE NEGATIVE Urine Propoxyphene Screen NEGATIVE NEGATIVE Urine Barbiturates Screen NEGATIVE NEGATIVE Ur Tricyclic Antidepressants Screen POSITIVE H NEGATIVE Urine Phencyclidine Screen NEGATIVE NEGATIVE Urine Amphetamines Screen POSITIVE H NEGATIVE Urine Methamphetamines Screen POSITIVE H NEGATIVE Urine Benzodiazepines Screen NEGATIVE NEGATIVE Urine Cocaine Screen NEGATIVE NEGATIVE Urine Cannabinoids Screen NEGATIVE NEGATIVE Lactic Acid Level 0.92 0.50-2.00 MMOL/L My Orders Orders - TASH ALARCON MD Cbc With Automated Diff (08/26/21 19:53) Magnesium (08/26/21 19:53) Chest 1 View Ap/Pa Only (08/26/21 19:53) Ekg Tracing (08/26/21 19:53) Comprehensive Metabolic Panel (08/26/21 19:53) Protime With Inr (08/26/21 19:53) Partial Thromboplastin Time (08/26/21 19:53) O2 (08/26/21 19:53) Monitor-Rhythm Ecg Trace Only (08/26/21 19:53) Ed Iv/Invasive Line Start (08/26/21 19:53) Lipase (08/26/21 19:53) Troponin I Fs (08/26/21 19:53) Probnp Fs (08/26/21 19:53) Ua Culture If Indicated (08/26/21 19:53) Ns Iv 1000 Ml (Sodium Chloride 0.9%) (08/26/21 19:53) Ondansetron Injection (Zofran Injectio (08/26/21 19:53) Manual Differential (08/26/21 19:53) Drug Screen Stat (Urine) (08/26/21 20:17) Urine Culture (08/26/21 20:31) Blood Culture (08/26/21 21:10) Covid 19 Inhouse Test (08/26/21 21:10) Lactic Acid Analyzer (08/26/21 21:10) Isolation Central Supply Req (08/26/21 21:10) Ceftriaxone 1 Gm Pre-Mix (Rocephin 1 Gm (08/26/21 21:12) Rx-Ondansetron Po (Rx-Zofran Po) (08/26/21 21:45) Medications Given in ED Current Medications Medications Dose Ordered Sig/Kurtis Route Start Time Stop Time Status Last Admin Dose Admin Ondansetron HCl 4 mg Q8H PRN PO 08/26/21 21:45 08/26/21 21:48 DC 08/26/21 21:41 4 MG Vital Signs/I&O 08/26/21 08/26/21 19:44 21:38 Temp 36.6 Pulse 117 105 Resp 20 12 B/P (MAP) 105/55 (72) 145/92 Pulse Ox 94 95 O2 Delivery Room Air Room Air Capillary Refill : Progress Note #1: Progress Note Obtain basic labs with urinalysis and give IV fluids with Zofran for her nausea. Electrocardiogram for tachycardia. Chest x-ray for her increased cough. Progress Note #2: Progress Note Labs shows chronically elevated white blood cell count 15,000. She has no acute significant abnormality on her chemistry panel. She has mild elevation of her glucose. Her cardiac enzymes are negative. Her chest x-ray does not show an acute process or infiltrate. She has no acute changes on her electrocardiogram. Her initial urinalysis does show signs of UTI so we will plan on starting an antibiotic. With her having the tachycardia as well as elevated white blood cell count and an infection will obtain blood cultures and a lactic acid to joanna luate for dehydration and sepsis. Started her on Rocephin based off of her last urine culture from fall 2020 showing E. coli that was sensitive to everything except for Bactrim. Patient states that she is feeling better and asking to go home. Give ice chips to make sure she is tolerating p.o. Progress Note #3: Time: 21:04 Progress Note when reviewing with pt that she has findings for UTI and dehydration as well as her ear infection advised pt that will give antibiotic here and check lactic acid and blood cultures to look for sepsis. Based on her previous urine cultures she was growing out E. coli that was pansensitive other than sulfa so will try rocephin here and augmentin for home since that would cover ear infection and her UTI. Pt then asked if this was Covid since she had a close friend that currently has Covid. I advised her it does not fit with Covid but i could not rule it out. She does not have changes on CXR to go with Covid. She wanted a swab sent so will add on Covid swab to be sent to [facility] and informed pt it will be 24 to 48 hours to get result. She is asking to go home and states she feels she is improved enough that she can go home. Progress Note #4: Time: 21:31 Progress Note drug screen positive for Methamphetamines again similar to when she was seen in [facility] 07/22. At that time she told staff she had not used since the weekend before and that she thought the Meth was in her nephew's beer when she took a drink from it because she thought his drink would be safe. tonight she denies using Meth since July but states it is used around her all the time. Lactic acid normal at 0.92 so will discharge on antibiotic as above and encour age follow up with clinic ECG Initial ECG Impression Date: Aug 26, 2021 Initial ECG Impression Time: 20:07 Initial ECG Rate: 108 Initial ECG Rhythm: S.Tach Initial ECG Comparisson: Unchanged Comment Sinus tachycardia with a heart rate of 108 bpm. Abnormal R wave progression with an early transition. 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 [place] interval 153 ms. QT interval 349 ms with a QTc interval [address] elevation. Appears similar to prior tracings in the system. Diagnostic Imaging Diagonstic Imaging: Xray Plain Films/CT/US/NM/MRI: chest Comments NAME: MACRUSJERALD MED REC#: [id number] PT STATUS: REG ER : 1970 PHYSICIAN: TASH ALARCON MD ADMIT DATE: 08/26/21/ER FS Draft Date of Exam:08/26/21 CHEST 1 VIEW AP/PA ONLY EXAMINATION: Chest 1 view. HISTORY: Cough. Nausea. COMPARISON: 07/22/2021. FINDINGS: The lung volumes are normal. No focal consolidation is seen. No large pleural effusion or pneumothorax is seen. The cardiomediastinal silhouette is normal in size and contour. No acute osseous abnormality is seen. IMPRESSION: No acute pleuroparenchymal process. Dictated on workstation # [id number] Dict: 08/26/212014 Trans: 08/26/212015 [id number] Interpreted by: COOKIE SHABAZZ DO Electronically signed by: Reviewed: Reviewed by Me Departure Impression Primary Impression: Cystitis without hematuria Additional Impressions: Left acute otitis media Dehydration Diarrhea Qualified Codes: R19.7 - Diarrhea, unspecified Methamphetamine use Disposition: HOME, SELF-CARE Condition: Stable Departure-Patient Inst. Decision time for Depature: 21:37 Referrals: [facility] (PCP) Primary Care Physician ANA HASSAN APRN (Family) Primary Care Physician Patient Instructions: Ear Infection ED, Urinary Tract Infection, Adult ED, Dehydration, Adult ED, Diarrhea, Adult ED Add. Discharge Instructions: Drink plenty of water and stay well hydrated. Make sure to take the full course of antibiotics to treat for urine and ear infection both. Follow up with clinic for continued concerns or if not improving. Avoid using Methamphetamines or drugs as that will make you more dehydrated and feel worse. All discharge instructions reviewed with patient and/or family. Voiced understanding. Scripts Ondansetron (Ondansetron Odt) 4 Mg Tab.rapdis 4 MG PO Q8H PRN for NAUSEA/VOMITING for 3 Days, #9 TAB 0 Refills Prov: TASH ALARCON MD 08/26/21 Amoxicillin/Potassium Clav (Amox Tr-K Clv 875-125 mg Tab) 1 Each Tablet 1 EACH PO BID for Ear Infection & UTI for 10 Days, #20 TAB 0 Refills Prov: TASH ALARCON MD 08/26/21 TASH ALARCON MD Aug 26, 2021 20:00
[2021-08-26 20:06] LABS: INR 1.1 (0.8-1.4); PROTHROMBIN TIME PATIENT 14.5 SEC (12.2-14.7)
[2021-08-26 20:16] LABS: ALBUMIN 4.3 GM/DL (3.2-4.5); BILIRUBIN,TOTAL 0.5 MG/DL (0.1-1.0); CALCIUM 9.7 MG/DL (8.5-10.1); CREATININE SERUM 0.67 MG/DL (0.60-1.30); MAGNESIUM 1.8 MG/DL (1.6-2.4); POTASSIUM 3.8 MMOL/L (3.6-5.0); TOTAL PROTEIN 7.8 GM/DL (6.4-8.2)
--- NOTE | 2021-08-26 20:17 | Diagnostic Imaging Report ---
EXAMINATION: Chest 1 view. HISTORY: Cough. Nausea. COMPARISON: 07/22/2021. FINDINGS: The lung volumes are normal. No focal consolidation is seen. No large pleural effusion or pneumothorax is seen. The cardiomediastinal silhouette is normal in size and contour. No acute osseous abnormality is seen. IMPRESSION: No acute pleuroparenchymal process. Dictated by: Dictated on workstation # [id number]
[2021-08-26 20:21] LABS: LYMPHOCYTES % (MANUAL) 14 %; MONOCYTES % (MANUAL) 4 %; NEUTROPHILS % (MANUAL) 82 %
[2021-08-26 20:41] LABS: BILIRUBIN,URINE NEGATIVE (NEGATIVE); COLOR,URINE YELLOW; GLUCOSE, URINE (UA) NEGATIVE (NEGATIVE); KETONES,URINE NEGATIVE (NEGATIVE); LEUKOCYTE ESTERASE ,URINE 2+ (NEGATIVE); NITRITE,URINE POSITIVE (NEGATIVE); PROTEIN,URINE TRACE (NEGATIVE)
[2021-08-26 20:44] LABS: BACTERIA,URINE LARGE /HPF; CLARITY,URINE CLOUDY; WBC,URINE TNTC /HPF
[2021-08-26] MEDS ORDERED: cefTRIAXone 1 GM PRE-MIX 50 ML IV STA (21:12)
[2021-08-26 21:18] LABS: AMPHETAMINE SCREEN, URINE POSITIVE (NEGATIVE); BARBITURATE SCREEN URINE NEGATIVE (NEGATIVE); BENZODIAZEPINES SCREEN URINE NEGATIVE (NEGATIVE); CANNABINOID SCREEN, URINE NEGATIVE (NEGATIVE); COCAINE SCREEN URINE NEGATIVE (NEGATIVE); METHADONE STAT NEGATIVE (NEGATIVE); METHAMPHETAMINE SCREEN URINE S POSITIVE (NEGATIVE); OPIATE SCREEN URINE POSITIVE (NEGATIVE); OXYCODONE STAT NEGATIVE (NEGATIVE); PROPOXYPHENE STAT NEGATIVE (NEGATIVE); TRICYCLIC ANTIDEPRESSANTS SCRE POSITIVE (NEGATIVE)
[2021-08-26] MEDS ORDERED: AMOX1TAB12 PO (21:25)
[2021-08-26] MEDS ORDERED: ONDA4TAB11 PO (21:25)
[2021-08-26 21:38] VITALS: BP 145/92
[2021-08-26] MEDS ORDERED: RX-ONDANSETRON 4 MG ODT (ZOFRAN) PPK #4 PO PRN (21:45)
== END 2021-08-26 21:42 | disposition still patient (30) ==
LOC: EDUNIT# 19:42 → ER FS 19:43
DX: N30.00 Acute cystitis without hematuria (principal); R19.7 Diarrhea, unspecified; E86.0 Dehydration; H66.92 Otitis media, unspecified, left ear; F15.10 Other stimulant abuse, uncomplicated; Z20.822 Contact with and (suspected) exposure to COVID-19
CPT/HCPCS: 36415; 71045; 80053; 80306; 81000; 83605; 83690; 83735; 83880; 84484; 85007; 85027; 85610; 85730; 87040; 87077; 87088; 87186; 87636; 93005; 93041

== ENCOUNTER 2021-09-25 22:49 | Emergency (ER) | payer MEDICAID ==
[~2021-09-25 22:49] MED LIST changes: +AMOX1TAB12 PO
--- NOTE | 2021-09-25 22:56 | ED General ---
History of Present Illness Date Seen by Provider: Sep 25, 2021 Time Seen by Provider: 22:55 Initial Comments 51-year-old female with PMH of fibromyalgia/chronic pain is here with complaints of back pain, upper and lower extremity pain generalized body pain, which has been ongoing but worsening over the past 4 days. Patient has seen her PCP and was told to take Tylenol for the pain. Patient states she has been taking 500 mg of Tylenol every 4 hours without much relief in her pain. Patient takes gabapentin. She is not currently on a muscle relaxer as per patient. Denies fever, neck stiffness or pain, headache, chest pain, shortness of breath, cough. Allergies and Home Medications Allergies Coded Allergies: doxycycline (Unverified Allergy, Mild, nauseated, 08/01/09) spinach (Unverified Allergy, Mild, 08/01/09) alprazolam (Verified Allergy, Unknown, 07/18/19) diazepam (Verified Allergy, Unknown, 07/18/19) sumatriptan (Verified Allergy, Unknown, 07/18/19) Patient Home Medication List Home Medication List Reviewed: Yes Albuterol Sulfate (Ventolin Hfa) 1 Puff Puff, 2 PUFF INH Q4H PRN for COUGH, (Reported) Entered as Reported by: PEREZ HENDERSON on 03/29/20 1200 Albuterol/Ipratropium (Combivent Respimat Inhal [place]) 4 Gm Aero, 2 PUFF IH TID Prescribed by: EMILY DOMÍNGUEZ on 10/03/201913 Amoxicillin/Potassium Clav (Augmentin 875-125 Tablet) 1 Each Tablet, 1 EACH PO BID Prescribed by: EMILY DOMÍNGUEZ on 10/03/201913 Amoxicillin/Potassium Clav (Amox Tr-K Clv 875-125 mg Tab) 1 Each Tablet, 1 EACH PO BID Prescribed by: TASH ALARCON on 08/26/21 2125 Cefdinir (Cefdinir) 300 Mg Capsule, 300 MG PO BID Prescribed by: LEONOR CAMARGO on 03/29/20 1340 Cefuroxime Axetil (Cefuroxime) 250 Mg Tablet, 250 MG PO BID Prescribed by: RAJAT SPARKS on 07/22/21 1540 Cephalexin (Cephalexin) 500 Mg Capsule, 500 MG PO TID Prescribed by: TASH ALARCON on 02/27/21 0633 Cephalexin (Cephalexin) 500 Mg Capsule, 500 MG PO QID Prescribed by: TASH ALARCON on 03/14/212028 Cyclobenzaprine HCl (Cyclobenzaprine HCl) 10 Mg Tablet, 10 MG PO Q8H PRN for SPASMS Prescribed by: TASH ALARCON on 06/29/212207 Fluticasone Propionate (Flonase Allergy Relief) 9.9 Ml [place].susp, 1 SPRAY NS DAILY Prescribed by: TASH ALARCON on 02/27/21 0633 Furosemide (Furosemide) 40 Mg Tablet, 40 MG PO BID, (Reported) Entered as Reported by: PEREZ HENDERSON on 03/29/20 1200 Gabapentin (Gabapentin) 600 Mg Tablet, 1,200 MG PO TID, (Reported) Entered as Reported by: PEREZ HENDERSON on 03/29/20 1200 Glimepiride (Glimepiride) 2 Mg Tablet, 2 MG PO BID, (Reported) Entered as Reported by: PEREZ HENDERSON on 03/29/20 1200 Haloperidol (Haloperidol) 10 Mg Tablet, 10 MG PO TID, (Reported) Entered as Reported by: PEREZ HENDERSON on 03/29/20 1200 Hydrocodone/Acetaminophen (Hydrocodone-Acetamin 5-325 mg) 1 Each Tablet, 1 TAB PO Q6H PRN for PAIN-MODERATE (5-7) Prescribed by: MAUREEN PARSONS on 08/18/20 1653 Hydrocodone/Acetaminophen (Hydrocodone-Acetamin 5-325 mg) 1 Each Tablet, 1 TAB PO Q8H PRN for PAIN-SEVERE (8-10) Prescribed by: TASH ALARCON on 12/01/20 2309 Lurasidone HCl (Latuda) 120 Mg Tablet, 120 MG PO 1800, (Reported) Entered as Reported by: PEREZ HENDERSON on 03/29/20 1200 Lurasidone HCl (Latuda) 40 Mg Tablet, 40 MG PO 1800, (Reported) Entered as Reported by: PEREZ HENDERSON on 03/29/20 1200 Montelukast Sodium (Montelukast Sodium) 10 Mg Tablet, 10 MG PO DAILY, (Reported) Entered as Reported by: PEREZ HENDERSON on 03/29/20 1200 Ondansetron (Ondansetron Odt) 4 Mg Tab.rapdis, 4 MG PO Q6H PRN for NAUSEA/VOMITING Prescribed by: TASH Aguilar ENYART on 09/20/20 2318 Ondansetron (Ondansetron Odt) 8 Mg Tab.rapdis, 8 MG PO Q6H PRN for [place]/VOMITING Prescribed by: RAJAT SPARKS on 07/22/21 1540 Ondansetron (Ondansetron Odt) 4 Mg Tab.rapdis, 4 MG PO Q8H PRN for NAUSEA/VOMITING Prescribed by: TASH Aguilar ENYART on 08/26/212124 Phenytoin Sodium Extended (Phenytoin Sodium Extended) 200 Mg Capsule, 200 MG PO BID, (Reported) Entered as Reported by: PEREZ HENDERSON on 03/29/20 1200 Potassium Chloride (Potassium Chloride) 20 Meq Tablet.er, 20 MEQ PO DAILY Prescribed by: RADHA ESPINOZA on 06/14/21 1315 Prednisone (Prednisone) 20 Mg Tab, 40 MG PO DAILY Prescribed by: EMILY DOMÍNGUEZ on 10/03/20 191 Prednisone (Prednisone) 20 Mg Tab, 40 MG PO DAILY Prescribed by: RAJAT SPARKS on 07/22/21 1540 Quetiapine Fumarate (Quetiapine Fumarate) 100 Mg Tablet, 300 MG PO DAILY, (Reported) Entered as Reported by: PEREZ HENDERSON on 03/29/20 1200 Rivaroxaban (Xarelto) 20 Mg Tablet, 20 MG PO DAILY, (Reported) Entered as Reported by: PEREZ HENDERSON on 03/29/20 1200 Topiramate (Topiramate) 100 Mg Tablet, 200 MG PO BID, (Reported) Entered as Reported by: PEREZ HENDERSON on 03/29/20 1200 Trazodone HCl (Trazodone HCl) 100 Mg Tablet, 200 MG PO HS, (Reported) Entered as Reported by: PEREZ HENDERSON on 03/29/20 1200 Venlafaxine HCl (Venlafaxine HCl ER) 150 Mg Cap.er.24h, 300 MG PO DAILY, (Reported) Entered as Reported by: PEREZ HENDERSON on 03/29/20 1200 Review of Systems Review of Systems Constitutional: other (generalized pain) EENTM: no symptoms reported Respiratory: no symptoms reported Cardiovascular: no symptoms reported Gastrointestinal: no symptoms reported Genitourinary: no symptoms reported Musculoskeletal: no symptoms reported Skin: no symptoms reported Psychiatric/Neurological: No Symptoms Reported Hematologic/Lymphatic: No Symptoms Reported Immunological/Allergic: no symptoms reported Past Zgeuosx-Trcowq-Jhprgb Hx Immunizations Up To Date First/Initial COVID19 Vaccinat: 2020 Second COVID19 Vaccination Magdaleno: 2020 Seasonal Allergies Seasonal Allergies: No Past Medical History Surgery/Hospitalization HX: Mood disorder; COPD; Neuropathy; Frequent falls; HTN; Fibromyalgia; Surgeries: Yes (HIP, suprapubic catheter, Dental) Appendectomy, Gallbladder, Hysterectomy, Orthopedic Respiratory: Yes Asthma, Pneumonia, Chronic Bronchitis, Pulmonary Embolism, COPD, Emphysema Cardiac: Yes (CHF) Neurological: Yes Neuropathy 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 Disorders: No 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 [employer] History: Hysterectomy Sexually Transmitted Disease: No HIV/AIDS: No Genitourinary: Yes Kidney Stones, Neurogenic Bladder, UTI-Chronic Gastrointestinal: Yes Abdominal Hernia, Gastroesophageal Reflux, Chronic Constipation, Irritable Bowel Musculoskeletal: Yes Arthritis, Fibromyalgia, Back Injury, Chronic Back Pain, Fractures, Spasms Endocrine: Yes Diabetes, Insulin dep, Hypothyroidsim HEENT: No Hearing Impairment: Hard of Hearing Cancer: Yes Ovarian Psychosocial: Yes ADD/ADHD, Bipolar, Schizophrenia Integumentary: No Blood Disorders: No Family Medical History No Pertinent Family Hx Physical Exam Vital Signs Vital Signs - First Documented 09/25/21 22:53 Temp 36.8 Pulse 83 Resp 22 B/P (MAP) 149/80 (103) Pulse Ox 99 O2 Delivery Room Air Capillary Refill : Height, Weight, BMI Height: '" Weight: 275lbs. oz. 124.168924eu; 50.00 BMI Method:Stated General Appearance: No Apparent Distress, Obese HEENT: PERRL/EOMI Back: Normal Inspection, Muscle Spasm Extremity: Other (tender all over) Neurologic/Psychiatric: Alert, Oriented x3, No Motor/Sensory Deficits Progress/Results/Core Measures Suspected Sepsis SIRS Temperature: Pulse: Respiratory Rate: Blood Pressure / Mean: Results/Orders My Orders Orders - SUELLEN RICO MD Ketorolac Injection (Toradol Injection) (09/25/21 23:01) Methocarbamol Tablet (Robaxin Tablet) (09/25/21 23:01) Vital Signs/I&O 09/25/21 22:53 Temp 36.8 Pulse 83 Resp 22 B/P (MAP) 149/80 (103) Pulse Ox 99 O2 Delivery Room Air Capillary Refill : Progress Note : Progress Note 1. CHRONIC PAIN EXACERBATION: - TOradol im STAT and Norflex injection - Advised pt to take 650mg of Tylenol PRN Q4H for pain - Pt not currently on a muscle relaxor, so will give one week of Methacarbamol prescription - F/u with PCP and Psych JOSEPH -The patient was seen in the ED, and treated appropriately to presentation at a specific point in time. Patient is informed that there is a possibility that disease and illness can evolve and change in acuity rapidly or slowly after patient is discharged from the ER. Precautionary advice given to the patient for immediate return to ER if symptoms worsen or do not resolve, and to seek emergency care sooner rather than later. Pt also advised on the importance of PCP follow up and compliance with management and follow up plan with PCP and/or specialist, as this is part of the management plan. Pt verbally expressed understanding. Departure Impression Primary Impression: Chronic pain Qualified Codes: G89.4 - Chronic pain syndrome Additional Impression: Muscle pain, fibromyalgia Disposition: HOME, SELF-CARE Condition: Stable Departure-Patient Inst. Referrals: [facility]/ (PCP) Primary Care Physician ANA HASSAN APRN (Family) Primary Care Physician Patient Instructions: CHRONIC PAIN, Fibromyalgia (DC) Add. Discharge Instructions: - Advised pt to take 650mg of Tylenol PRN Q4H for pain - Pt not currently on a muscle relaxor, so will give one week of Methacarbamol prescription - F/u with PCP and Psych JOSEPH -The patient was seen in the ED, and treated appropriately to presentation at a specific point in time. Patient is informed that there is a possibility that disease and illness can evolve and change in acuity rapidly or slowly after patient is discharged from the ER. Precautionary advice given to the patient for immediate return to ER if symptoms worsen or do not resolve, and [facility]. Pt also advised on the importance of PCP follow up and compliance with management and follow up plan with PCP and/or specialist, as this is part of the management plan. Pt verbally expressed understanding. Scripts Methocarbamol (Methocarbamol) 500 Mg Tablet 500 MG PO Q8H for Back Pain for 7 Days, #21 TAB Prov: SUELLEN RICO MD 09/25/21 SUELLEN RICO MD Sep 25, 2021 22:56
[2021-09-25] MEDS ORDERED: METHOCARBAMOL 500 MG (ROBAXIN) TABLET PO STA (23:01)
[2021-09-25] MEDS ORDERED: KETOROLAC 30 MG/ML VIAL IM STA (23:01)
[2021-09-25] MEDS ORDERED: METH-731 PO (23:27)
[2021-09-25 23:39] VITALS: BP 149/80
[2021-09-25] MEDS ORDERED: ORPHENADRINE 60 MG/2 ML (NORFLEX) AMP (ED ONLY) IM ONE (23:45)
== END 2021-09-25 23:39 | disposition home or self-care (01) ==
LOC: EDUNIT# 22:49 → ER FS 22:53
DX: G89.4 Chronic pain syndrome (principal); M79.7 Fibromyalgia; E11.40 Type 2 diabetes mellitus with diabetic neuropathy, unspecified; Z79.4 Long term (current) use of insulin
CPT/HCPCS: 99284

== ENCOUNTER 2022-01-28 19:04 | Emergency (ER) | payer MEDICAID ==
[~2022-01-28] VITALS: Ht 157.4 cm; Wt 106.1 kg
[~2022-01-28 19:04] MED LIST changes: +METH-731 PO
--- NOTE | 2022-01-28 19:10 | ED General ---
General Stated Complaint: CHEST PAIN, NUMBNESS, SEIZURES History of Present Illness Date Seen by Provider: Jan 28, 2022 Time Seen by Provider: 19:10 Initial Comments 51-year-old female presents with chest pain, upper abdominal pain. She reports that started about an hour ago. Patient has COPD and emphysema has some mild shortness of breath. Reports that she last used her inhaler last night. She complains of some just generalized allover numbness. Patient denies fever, chills, nausea or vomiting. She does have lower upset stomach. Patient reports she is supposed be on home oxygen but did not arrive on oxygen. Allergies and Home Medications Allergies Coded Allergies: doxycycline (Unverified Allergy, Mild, nauseated, 08/01/09) spinach (Unverified Allergy, Mild, 08/01/09) alprazolam (Verified Allergy, Unknown, 07/18/19) diazepam (Verified Allergy, Unknown, 07/18/19) sumatriptan (Verified Allergy, Unknown, 07/18/19) Patient Home Medication List Home Medication List Reviewed: Yes Albuterol Sulfate (Ventolin Hfa) 1 Puff Puff, 2 PUFF INH Q4H PRN for COUGH, (Reported) Entered as Reported by: PEREZ HENDERSON on 03/29/20 1200 Albuterol/Ipratropium (Combivent Respimat Inhal [place]) 4 Gm Aero, 2 PUFF IH TID Prescribed by: EMILY DOMÍNGUEZ on 10/03/201913 Amoxicillin/Potassium Clav (Augmentin 875-125 Tablet) 1 Each Tablet, 1 EACH PO BID Prescribed by: EMILY DOMÍNGUEZ on 10/03/201913 Amoxicillin/Potassium Clav (Amox Tr-K Clv 875-125 mg Tab) 1 Each Tablet, 1 EACH PO BID Prescribed by: TASH ALARCON on 08/26/215 Cefdinir (Cefdinir) 300 Mg Capsule, 300 MG PO BID Prescribed by: LEONOR CAMARGO on 03/29/20 1340 Cefuroxime Axetil (Cefuroxime) 250 Mg Tablet, 250 MG PO BID Prescribed by: RAJAT SPARKS on 07/22/21 1540 Cephalexin (Cephalexin) 500 Mg Capsule, 500 MG PO TID Prescribed by: TASH ALARCON on 02/27/21 0633 Cephalexin (Cephalexin) 500 Mg Capsule, 500 MG PO QID Prescribed by: TASH ALARCON on 03/14/212028 Cyclobenzaprine HCl (Cyclobenzaprine HCl) 10 Mg Tablet, 10 MG PO Q8H PRN for SPASMS Prescribed by: TASH ALARCON on 06/29/212207 Fluticasone Propionate (Flonase Allergy Relief) 9.9 Ml [place].susp, 1 SPRAY NS DAILY Prescribed by: TASH ALARCON on 02/27/21 0633 Furosemide (Furosemide) 40 Mg Tablet, 40 MG PO BID, (Reported) Entered as Reported by: PEREZ HENDERSON on 03/29/20 1200 Gabapentin (Gabapentin) 600 Mg Tablet, 1,200 MG PO TID, (Reported) Entered as Reported by: PEREZ HENDERSON on 03/29/20 1200 Glimepiride (Glimepiride) 2 Mg Tablet, 2 MG PO BID, (Reported) Entered as Reported by: PEREZ HENDERSON on 03/29/20 1200 Haloperidol (Haloperidol) 10 Mg Tablet, 10 MG PO TID, (Reported) Entered as Reported by: PEREZ HENDERSON on 03/29/20 1200 Hydrocodone/Acetaminophen (Hydrocodone-Acetamin 5-325 mg) 1 Each Tablet, 1 TAB PO Q6H PRN for PAIN-MODERATE (5-7) Prescribed by: MAUREEN PARSONS on 08/18/20 1653 Hydrocodone/Acetaminophen (Hydrocodone-Acetamin 5-325 mg) 1 Each Tablet, 1 TAB PO Q8H PRN for PAIN-SEVERE (8-10) Prescribed by: TASH ALARCON on 12/01/20 2309 Lurasidone HCl (Latuda) 120 Mg Tablet, 120 MG PO 1800, (Reported) Entered as Reported by: PEREZ HENDERSON on 03/29/20 1200 Lurasidone HCl (Latuda) 40 Mg Tablet, 40 MG PO 1800, (Reported) Entered as Reported by: PEREZ HENDERSON on 03/29/20 1200 Methocarbamol (Methocarbamol) 500 Mg Tablet, 500 MG PO Q8H Prescribed by: SUELLEN RICO MD on 09/25/21 2327 Montelukast Sodium (Montelukast Sodium) 10 Mg Tablet, 10 MG PO DAILY, (Reported) Entered as Reported by: PEREZ HENDERSON on 03/29/20 1200 Ondansetron (Ondansetron Odt) 4 Mg Tab.rapdis, 4 MG PO Q6H PRN for NAUSEA/VOMITING Prescribed by: TASH HANYART on 09/20/20 2318 Ondansetron (Ondansetron Odt) 8 Mg Tab.rapdis, 8 MG PO Q6H PRN for NAUSEA/VOMITING Prescribed by: RAJAT SPARKS on 07/22/21 1540 Ondansetron (Ondansetron Odt) 4 Mg Tab.rapdis, 4 MG PO Q8H PRN for NAUSEA/VOMITING Prescribed by: TASH HANYART on 08/26/21 2125 Phenytoin Sodium Extended (Phenytoin Sodium Extended) 200 Mg Capsule, 200 MG PO BID, (Reported) Entered as Reported by: PEREZ HENDERSON on 03/29/20 1200 Potassium Chloride (Potassium Chloride) 20 Meq Tablet.er, 20 MEQ PO DAILY Prescribed by: RADHA ESPINOZA on 06/14/21 1315 Prednisone (Prednisone) 20 Mg Tab, 40 MG PO DAILY Prescribed by: EMILY DOMÍNGUEZ on 10/03/20 1914 Prednisone (Prednisone) 20 Mg Tab, 40 MG PO DAILY Prescribed by: RAJAT SPARKS on 07/22/21 1540 Quetiapine Fumarate (Quetiapine Fumarate) 100 Mg Tablet, 300 MG PO DAILY, (Reported) Entered as Reported by: PEREZ HENDERSON on 03/29/20 1200 Rivaroxaban (Xarelto) 20 Mg Tablet, 20 MG PO DAILY, (Reported) Entered as Reported by: PEREZ HENDERSON on 03/29/20 1200 Topiramate (Topiramate) 100 Mg Tablet, 200 MG PO BID, (Reported) Entered as Reported by: PEREZ HENDERSON on 03/29/20 1200 Trazodone HCl (Trazodone HCl) 100 Mg Tablet, 200 MG PO HS, (Reported) Entered as Reported by: PEREZ HENDERSON on 03/29/20 1200 Venlafaxine HCl (Venlafaxine HCl ER) 150 Mg Cap.er.24h, 300 MG PO DAILY, (Reported) Entered as Reported by: PEREZ HENDERSON on 03/29/20 1200 Review of Systems Review of Systems Constitutional: No chills, No fever; malaise Respiratory: No cough; short of breath (chronic) Gastrointestinal: abdominal pain; No nausea, No vomiting Musculoskeletal: no symptoms reported Skin: no symptoms reported Psychiatric/Neurological: No Symptoms Reported Past Pvjhotk-Xyaovh-Wwuahr Hx Immunizations Up To Date First/Initial COVID19 Vaccinat: 2020 Second COVID19 Vaccination [place]: 2020 Seasonal Allergies Seasonal Allergies: No Past Medical History Surgery/Hospitalization HX: Mood disorder; COPD; Neuropathy; Frequent falls; HTN; Fibromyalgia; Surgeries: Yes (HIP, suprapubic catheter, Dental) Appendectomy, Gallbladder, Hysterectomy, Orthopedic Respiratory: Yes Asthma, Pneumonia, Chronic Bronchitis, Pulmonary Embolism, COPD, Emphysema Cardiac: Yes (CHF) Neurological: Yes Neuropathy 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 Disorders: No 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 [employer] History: Hysterectomy Sexually Transmitted Disease: No HIV/AIDS: No Genitourinary: Yes Kidney Stones, Neurogenic Bladder, UTI-Chronic Gastrointestinal: Yes Abdominal Hernia, Gastroesophageal Reflux, Chronic Constipation, Irritable Bowel Musculoskeletal: Yes Arthritis, Fibromyalgia, Back Injury, Chronic Back Pain, Fractures, Spasms Endocrine: Yes Diabetes, Insulin dep, Hypothyroidsim HEENT: No Hearing Impairment: Hard of Hearing Cancer: Yes Ovarian Psychosocial: Yes ADD/ADHD, Bipolar, Schizophrenia Integumentary: No Blood Disorders: No Family Medical History No Pertinent Family Hx Physical Exam Vital Signs Vital Signs - First Documented 01/28/22 19:09 Temp 36.5 Pulse 80 Resp 22 B/P (MAP) 136/84 (101) Pulse Ox 94 O2 Delivery Room Air O2 Flow Rate 3.00 Capillary Refill : Height, Weight, BMI Height: '" Weight: 275lbs. oz. 124.714557gx; 50.00 BMI Method:Stated General Appearance: Chronically ill, Other (Patient acts as if she did have a dystonic reaction versus drug reaction such as methamphetamine) Eyes: Bilateral Eye Normal Inspection HEENT: Moist Mucous Membranes Neck: Non Tender Respiratory: Decreased Breath Sounds (Mild diffuse) Cardiovascular: Regular Rate, Rhythm, No Edema Gastrointestinal: Soft; No Distended, No Guarding; Tenderness (Mild tenderness lower abdomen) Extremity: Normal Capillary Refill, Normal Inspection, Normal Range of Motion Neurologic/Psychiatric: Alert, Oriented x3 Skin: Other (Patient with diffuse scabs/sores consistent with picking) Progress/Results/Core Measures Suspected Sepsis SIRS Temperature: Pulse: Respiratory Rate: Laboratory Tests 01/28/22 19:21: White Blood Count 14.6H Blood Pressure / Mean: Laboratory Tests 01/28/22 19:21: Creatinine 0.70, Platelet Count 204, Total Bilirubin 0.3 Results/Orders Lab Results Laboratory Tests Test 01/28/22 19:21 01/28/22 19:39 Range/Units White Blood Count 14.6 H 4.3-11.0 10^3/uL Red Blood Count 4.60 3.80-5.11 10^6/uL Hemoglobin 13.6 11.5-16.0 g/dL Hematocrit 39 35-52 % Mean Corpuscular Volume 85 80-99 fL Mean Corpuscular Hemoglobin 30 25-34 pg Mean Corpuscular Hemoglobin Concent 35 32-36 g/dL Red Cell Distribution Width 12.7 10.0-14.5 % Platelet Count 204 130-400 10^3/uL Mean Platelet Volume 9.2 9.0-12.2 fL Immature Granulocyte % (Auto) 0 % Neutrophils (%) (Auto) 72 42-75 % Lymphocytes (%) (Auto) 20 12-44 % Monocytes (%) (Auto) 6 0-12 % Eosinophils (%) (Auto) 1 0-10 % Basophils (%) (Auto) 0 0-10 % Neutrophils # (Auto) 10.5 H 1.8-7.8 10^3/uL Lymphocytes # (Auto) 2.9 1.0-4.0 10^3/uL Monocytes # (Auto) 0.9 0.0-1.0 10^3/uL Eosinophils # (Auto) 0.2 0.0-0.3 10^3/uL Basophils # (Auto) 0.1 0.0-0.1 10^3/uL Immature Granulocyte # (Auto) 0.1 0.0-0.1 10^3/uL Neutrophils % (Manual) 80 % Lymphocytes % (Manual) 16 % Monocytes % (Manual) 3 % Eosinophils % (Manual) 1 % Sodium Level 122 *L 135-145 MMOL/L Potassium Level 3.6 3.6-5.0 MMOL/L Chloride Level 98 98-107 MMOL/L Carbon Dioxide Level 22 21-32 MMOL/L Anion Gap 2 L 5-14 MMOL/L Blood Urea Nitrogen 7 7-18 MG/DL Creatinine 0.70 0.60-1.30 MG/DL Estimat Glomerular Filtration Rate 106 BUN/Creatinine Ratio 10 Glucose Level 111 H 70-105 MG/DL Calcium Level 8.4 L 8.5-10.1 MG/DL Corrected Calcium 8.4 L 8.5-10.1 MG/DL Magnesium Level 1.7 1.6-2.4 MG/DL Total Bilirubin 0.3 0.1-1.0 MG/DL Aspartate Amino Transf (AST/SGOT) 10 5-34 U/L Alanine Aminotransferase (ALT/SGPT) 15 0-55 U/L Alkaline Phosphatase 126 40-136 U/L Troponin I < 0.30 <0.30 NG/ML C-Reactive Protein 0.52 H <0.50 MG/DL Total Protein 6.5 6.4-8.2 GM/DL Albumin 4.0 3.2-4.5 GM/DL Urine Color YELLOW Urine Clarity CLEAR Urine pH 7.0 5-9 Urine Specific [place] 1.010 L 1.016-1.022 Urine Protein NEGATIVE NEGATIVE Urine Glucose (UA) 3+ H NEGATIVE Urine Ketones NEGATIVE NEGATIVE Urine Nitrite NEGATIVE NEGATIVE Urine Bilirubin NEGATIVE NEGATIVE Urine Urobilinogen 1.0 < = 1.0 MG/DL Urine Leukocyte Esterase NEGATIVE NEGATIVE Urine RBC (Auto) NEGATIVE NEGATIVE Urine RBC NONE /HPF Urine WBC 5-10 H /HPF Urine Squamous Epithelial Cells 25-50 H /HPF Urine Crystals NONE /LPF Urine Bacteria MODERATE H /HPF Urine Casts NONE /LPF Urine Mucus NEGATIVE /LPF Urine Culture Indicated NO Urine Opiates Screen NEGATIVE NEGATIVE Urine Oxycodone Screen NEGATIVE NEGATIVE Urine Methadone Screen NEGATIVE NEGATIVE Urine Propoxyphene Screen NEGATIVE NEGATIVE Urine Barbiturates Screen NEGATIVE NEGATIVE Ur Tricyclic Antidepressants Screen NEGATIVE NEGATIVE Urine Phencyclidine Screen NEGATIVE NEGATIVE Urine Amphetamines Screen NEGATIVE NEGATIVE Urine Methamphetamines Screen NEGATIVE NEGATIVE Urine Benzodiazepines Screen NEGATIVE NEGATIVE Urine Cocaine Screen NEGATIVE NEGATIVE Urine Cannabinoids Screen NEGATIVE NEGATIVE My Orders Orders - LEGER,AMBREEN L DO Chest 1 View Ap/Pa Only (01/28/22 19:10) Ed Iv/Invasive Line Start (01/28/22 19:10) Ekg Tracing (01/28/22 19:10) Monitor-Rhythm Ecg Trace Only (01/28/22 19:10) Cbc With Automated Diff (01/28/22 19:10) Comprehensive Metabolic Panel (01/28/22 19:10) Drug Screen Stat (Urine) (01/28/22 19:10) Magnesium (01/28/22 19:10) Ua Culture If Indicated (01/28/22 19:10) Crp Fs (01/28/22 19:10) Troponin I Fs (01/28/22 19:10) Albuterol/Ipra Inhalation Soln (Duoneb I (01/28/22 19:15) Svn Small Volume Nebulizer (01/28/22 19:10) Manual Differential (01/28/22 19:21) Ns Iv 1000 Ml (Sodium Chloride 0.9%) (01/28/22 19:57) Medications Given in ED Current Medications Medications Dose Ordered Sig/Kurtis Route Start Time Stop Time Status Last Admin Dose Admin Albuterol/ Ipratropium 3 ml ONCE ONCE INH 01/28/22 19:15 01/28/22 19:16 DC 01/28/22 19:15 3 ML Vital Signs/I&O 01/28/22 01/28/22 01/28/22 19:09 19:09 20:08 Temp 36.5 Pulse 80 82 Resp 22 20 B/P (MAP) 136/84 (101) 124/72 Pulse Ox 94 95 O2 Delivery Room Air Nasal Cannula Room Air O2 Flow Rate 3.00 Capillary Refill : Progress Note : Progress Note Patient's sodium is 122. Patient with negative troponin. I did recommend patient be admitted for observation for continued chest pain rule out and due to her hyponatremia. Patient does have chronic hyponatremia however this is quite lower than her normal. Patient declined admission states she does not want to be admitted. She understands the risk. She reports that she has been working with her primary care provider because she been having chest pain on and off for at least a month if not longer. Patient was recommended to follow-up with her primary care provider next week on Sunday to have her sodium rechecked. She should return to the ER as needed. ECG Initial ECG Impression Date: Jan 28, 2022 Initial ECG Impression Time: 19:12 Initial ECG Rate: 77 Initial ECG Rhythm: Normal Sinus Initial ECG Impression: Nonspecific Changes Comment hr 77, no acute st elevation, probable old RI Diagnostic Imaging Diagonstic Imaging: Xray Plain Films/CT/US/NM/MRI: chest Comments Date of Exam:01/28/22 CHEST 1 VIEW AP/PA ONLY EXAMINATION: Chest radiograph, portable AP view. DATE: 01/28/2022 7:23 PM INDICATION: 51-year-old female, chest tightness. COMPARISON: August 26, 2021. FINDINGS: Heart size and mediastinal contours are unchanged. There is no identified pneumothorax. There is no large pleural effusion. There is no identified interval focal airspace consolidation. IMPRESSION: No identified acute cardiopulmonary abnormality. Departure Impression Primary Impression: Chest pain Qualified Codes: R07.9 - Chest pain, unspecified Additional Impression: Hypokalemia Disposition: HOME, SELF-CARE Condition: Stable Departure-Patient Inst. Referrals: [facility] (PCP) Primary Care Physician ANA HASSAN APRN (Family) Primary Care Physician Patient Instructions: Chest Pain, Adult ED, Hyponatremia (DC) Add. Discharge Instructions: Please limit the amount of free water you drink, please drink electrolyte containing water or drinks such as body armor Please increase your salt intake Please follow-up with your primary care provider on Sunday AMBREEN LEGER DO Jan 28, 2022 19:10
[2022-01-28] MEDS ORDERED: RT-ALBUTEROL/IPRATROPIUM 3 ML (DUONEB) VIAL INH ONE (19:15)
[2022-01-28 19:22] LABS: BASOPHILS # (AUTO) 0.1 10^3/uL (0.0-0.1); BASOPHILS % (AUTO) 0 % (0-10); EOSINOPHILS # (AUTO) 0.2 10^3/uL (0.0-0.3); EOSINOPHILS % (AUTO) 1 % (0-10); HEMATOCRIT 39 % (35-52); HEMOGLOBIN 13.6 g/dL (11.5-16.0); LYMPHOCYTES # (AUTO) 2.9 10^3/uL (1.0-4.0); LYMPHOCYTES % (AUTO) 20 % (12-44); MEAN CORPUSCULAR HEMOGLOBIN 30 pg (25-34); MEAN CORPUSCULAR HGB CONC 35 g/dL (32-36); MEAN CORPUSCULAR VOLUME 85 fL (80-99); MEAN PLATELET VOLUME 9.2 fL (9.0-12.2); MONOCYTES # (AUTO) 0.9 10^3/uL (0.0-1.0); MONOCYTES % (AUTO) 6 % (0-12); NEUTROPHILS # (AUTO) 10.5 10^3/uL (1.8-7.8); NEUTROPHILS % (AUTO) 72 % (42-75); PLATELET COUNT 204 10^3/uL (130-400); WHITE BLOOD COUNT 14.6 10^3/uL (4.3-11.0)
--- NOTE | 2022-01-28 19:28 | Diagnostic Imaging Report ---
EXAMINATION: Chest radiograph, portable AP view. DATE: 01/28/2022 7:23 PM INDICATION: 51-year-old female, chest tightness. COMPARISON: August 26, 2021. FINDINGS: Heart size and mediastinal contours are unchanged. There is no identified pneumothorax. There is no large pleural effusion. There is no identified interval focal airspace consolidation. IMPRESSION: No identified acute cardiopulmonary abnormality. Dictated by: Dictated on workstation # [id number]
[2022-01-28 19:42] LABS: BILIRUBIN,URINE NEGATIVE (NEGATIVE); CLARITY,URINE CLEAR; COLOR,URINE YELLOW; GLUCOSE, URINE (UA) 3+ (NEGATIVE); KETONES,URINE NEGATIVE (NEGATIVE); LEUKOCYTE ESTERASE ,URINE NEGATIVE (NEGATIVE); NITRITE,URINE NEGATIVE (NEGATIVE); PROTEIN,URINE NEGATIVE (NEGATIVE)
[2022-01-28 19:43] LABS: POTASSIUM 3.6 MMOL/L (3.6-5.0)
[2022-01-28 19:44] LABS: ALANINE AMINOTRANSFERASE 15 U/L (0-55); ALKALINE PHOSPHATASE 126 U/L (40-136); BILIRUBIN,TOTAL 0.3 MG/DL (0.1-1.0); BUN/CREATININE RATIO 10; CALCIUM 8.4 MG/DL (8.5-10.1); CARBON DIOXIDE 22 MMOL/L (21-32); CHLORIDE 98 MMOL/L (98-107); GFR ESTIMATED 106; GLUCOSE 111 MG/DL (70-105); MAGNESIUM 1.7 MG/DL (1.6-2.4); TOTAL PROTEIN 6.5 GM/DL (6.4-8.2)
[2022-01-28 19:45] LABS: SODIUM 122 MMOL/L (135-145)
[2022-01-28 19:48] LABS: BACTERIA,URINE MODERATE /HPF; SQUAMOUS EPITHELIAL CELL,UR 25-50 /HPF
[2022-01-28 19:51] LABS: EOSINOPHILS % (MANUAL) 1 %; LYMPHOCYTES % (MANUAL) 16 %; MONOCYTES % (MANUAL) 3 %; NEUTROPHILS % (MANUAL) 80 %
[2022-01-28 19:53] LABS: AMPHETAMINE SCREEN, URINE NEGATIVE (NEGATIVE); BARBITURATE SCREEN URINE NEGATIVE (NEGATIVE); BENZODIAZEPINES SCREEN URINE NEGATIVE (NEGATIVE); CANNABINOID SCREEN, URINE NEGATIVE (NEGATIVE); COCAINE SCREEN URINE NEGATIVE (NEGATIVE); METHADONE STAT NEGATIVE (NEGATIVE); OPIATE SCREEN URINE NEGATIVE (NEGATIVE); OXYCODONE STAT NEGATIVE (NEGATIVE); PROPOXYPHENE STAT NEGATIVE (NEGATIVE); TRICYCLIC ANTIDEPRESSANTS SCRE NEGATIVE (NEGATIVE)
[2022-01-28] MEDS ORDERED: NS IV 1000 ML 1,000 ML IV STA (19:57)
[2022-01-28 20:08] VITALS: BP 124/72
== END 2022-01-28 20:10 | disposition home or self-care (01) ==
LOC: EDUNIT# 19:04 → ER FS 19:07
DX: R07.9 Chest pain, unspecified (principal); E87.6 Hypokalemia; Z87.09 Personal history of other diseases of the respiratory system; Z91.19 Patient's noncompliance with other medical treatment and regimen
CPT/HCPCS: 36415; 71045; 80053; 80306; 81000; 83735; 84484; 85007; 85027; 86141; 93005; 93041

== ENCOUNTER 2022-02-09 13:01 | Emergency (ER) | payer MEDICAID ==
[~2022-02-09] VITALS: Ht 154 cm; Wt 110.0 kg
--- NOTE | 2022-02-09 13:07 | ED General ---
General Stated Complaint: CHEST PAIN History of Present Illness Date Seen by Provider: Feb 09, 2022 Time Seen by Provider: 13:03 Initial Comments 51-year-old female presents with chest pain that she thinks is from her lungs and chest tightness. Patient has known COPD and normally on 3 L oxygen home O2. Patient reports that the pain is kind of epigastric lower chest and radiates to her back. Patient also reports that she is having a lot of had uncontrolled tremors/rhythmic movements of her body. Patient was seen by Dr. Michel and told to come the ER because of her low sodium. Patient was seen by me with similar complaints on 01/28/2022 and declined admission. Patient has not used any of her breathing treatments today. She denies any fever, chills, nausea or vomiting. She denies any new medication. Allergies and Home Medications Allergies Coded Allergies: doxycycline (Unverified Allergy, Mild, nauseated, 08/01/09) spinach (Unverified Allergy, Mild, 08/01/09) alprazolam (Verified Allergy, Unknown, 07/18/19) diazepam (Verified Allergy, Unknown, 07/18/19) sumatriptan (Verified Allergy, Unknown, 07/18/19) Patient Home Medication List Home Medication List Reviewed: Yes Albuterol Sulfate (Ventolin Hfa) 1 Puff Puff, 2 PUFF INH Q4H PRN for COUGH, (Reported) Entered as Reported by: PEREZ HENDERSON on 03/29/20 1200 Albuterol/Ipratropium (Combivent Respimat Inhal [place]) 4 Gm Aero, 2 PUFF IH TID Prescribed by: EMILY DOMÍNGUEZ on 10/03/201913 Amoxicillin/Potassium Clav (Augmentin 875-125 Tablet) 1 Each Tablet, 1 EACH PO BID Prescribed by: EMILY DOMÍNGUEZ on 10/03/201913 Amoxicillin/Potassium Clav (Amox Tr-K Clv 875-125 mg Tab) 1 Each Tablet, 1 EACH PO BID Prescribed by: TASH ALARCON on 08/26/212124 Cefdinir (Cefdinir) 300 Mg Capsule, 300 MG PO BID Prescribed by: LEONOR CAMARGO on 03/29/20 1340 Cefuroxime Axetil (Cefuroxime) 250 Mg Tablet, 250 MG PO BID Prescribed by: RAJAT SPARKS on 07/22/21 1540 Cephalexin (Cephalexin) 500 Mg Capsule, 500 MG PO TID Prescribed by: TASH ALARCON on 02/27/21632 Cephalexin (Cephalexin) 500 Mg Capsule, 500 MG PO QID Prescribed by: TASH ALARCON on 03/14/212028 Cyclobenzaprine HCl (Cyclobenzaprine HCl) 10 Mg Tablet, 10 MG PO Q8H PRN for SPASMS Prescribed by: TASH ALARCON on 06/29/212207 Fluticasone Propionate (Flonase Allergy Relief) 9.9 Ml [place].susp, 1 SPRAY NS DAILY Prescribed by: TASH ALARCON on 02/27/21632 Furosemide (Furosemide) 40 Mg Tablet, 40 MG PO BID, (Reported) Entered as Reported by: PEREZ HENDERSON on 03/29/20 1200 Gabapentin (Gabapentin) 600 Mg Tablet, 1,200 MG PO TID, (Reported) Entered as Reported by: PEREZ HENDERSON on 03/29/20 1200 Glimepiride (Glimepiride) 2 Mg Tablet, 2 MG PO BID, (Reported) Entered as Reported by: PEREZ HENDERSON on 03/29/20 1200 Haloperidol (Haloperidol) 10 Mg Tablet, 10 MG PO TID, (Reported) Entered as Reported by: PEREZ HENDERSON on 03/29/20 1200 Hydrocodone/Acetaminophen (Hydrocodone-Acetamin 5-325 mg) 1 Each Tablet, 1 TAB PO Q6H PRN for PAIN-MODERATE (5-7) Prescribed by: MAUREEN PARSONS on 08/18/20 1653 Hydrocodone/Acetaminophen (Hydrocodone-Acetamin 5-325 mg) 1 Each Tablet, 1 TAB PO Q8H PRN for PAIN-SEVERE (8-10) Prescribed by: TASH ALARCON on 12/01/20 2309 Levofloxacin (Levofloxacin) 500 Mg Tablet, 500 MG PO DAILY Prescribed by: AMBREEN LEGER on 02/09/22 1503 Lurasidone HCl (Latuda) 120 Mg Tablet, 120 MG PO 1800, (Reported) Entered as Reported by: PEREZ HENDERSON on 03/29/20 1200 Lurasidone HCl (Latuda) 40 Mg Tablet, 40 MG PO 1800, (Reported) Entered as Reported by: PEREZ HENDERSON on 03/29/20 1200 Methocarbamol (Methocarbamol) 500 Mg Tablet, 500 MG PO Q8H Prescribed by: SUELLEN RICO MD on 09/25/21 2327 Montelukast Sodium (Montelukast Sodium) 10 Mg Tablet, 10 MG PO DAILY, (Reported) Entered as Reported by: PEREZ HENDERSON on 03/29/20 1200 Ondansetron (Ondansetron Odt) 4 Mg Tab.rapdis, 4 MG PO Q6H PRN for NAUSEA/VOMITING Prescribed by: TASH Aguilar ENYART on 09/20/20 2318 Ondansetron (Ondansetron Odt) 8 Mg Tab.rapdis, 8 MG PO Q6H PRN for NAUSEA/VOMITING Prescribed by: RAJAT SPARKS on 07/22/21 1540 Ondansetron (Ondansetron Odt) 4 Mg Tab.rapdis, 4 MG PO Q8H PRN for NAUSEA/VOMITING Prescribed by: TASH HANYART on 08/26/212124 Phenytoin Sodium Extended (Phenytoin Sodium Extended) 200 Mg Capsule, 200 MG PO BID, (Reported) Entered as Reported by: PEREZ HENDERSON on 03/29/20 1200 Potassium Chloride (Potassium Chloride) 20 Meq Tablet.er, 20 MEQ PO DAILY Prescribed by: RADHA ESPINOZA on 06/14/21 1315 Prednisone (Prednisone) 20 Mg Tab, 40 MG PO DAILY Prescribed by: EMILY DOMÍNGUEZ on 10/03/20 1914 Prednisone (Prednisone) 20 Mg Tab, 40 MG PO DAILY Prescribed by: RAJAT SPARKS on 07/22/21 1540 Prednisone (Prednisone) 20 Mg Tab, 40 MG PO DAILY Prescribed by: AMBREEN LEGER on 02/09/22 1503 Quetiapine Fumarate (Quetiapine Fumarate) 100 Mg Tablet, 300 MG PO DAILY, (R eported) Entered as Reported by: PEREZ HENDERSON on 03/29/20 1200 Rivaroxaban (Xarelto) 20 Mg Tablet, 20 MG PO DAILY, (Reported) Entered as Reported by: PEREZ HENDERSON on 03/29/20 1200 Topiramate (Topiramate) 100 Mg Tablet, 200 MG PO BID, (Reported) Entered as Reported by: PEREZ HENDERSON on 03/29/20 1200 Trazodone HCl (Trazodone HCl) 100 Mg Tablet, 200 MG PO HS, (Reported) Entered as Reported by: PEREZ HENDERSON on 03/29/20 1200 Venlafaxine HCl (Venlafaxine HCl ER) 150 Mg Cap.er.24h, 300 MG PO DAILY, (Reported) Entered as Reported by: PEREZ HENDERSON on 03/29/20 1200 Review of Systems Review of Systems Constitutional: No chills, No dizziness, No fever EENTM: no symptoms reported Respiratory: see HPI, short of breath, wheezing Cardiovascular: see HPI, chest pain Gastrointestinal: no symptoms reported Genitourinary: no symptoms reported Musculoskeletal: see HPI Skin: no symptoms reported Psychiatric/Neurological: See HPI, Tremors Hematologic/Lymphatic: No Symptoms Reported Immunological/Allergic: no symptoms reported Past Wsqmlap-Cdupuj-Hmdiku Hx Immunizations Up To Date First/Initial COVID19 Vaccinat: 2020 Second COVID19 Vaccination Magdaleno: 2020 Seasonal Allergies Seasonal Allergies: No Past Medical History Surgery/Hospitalization HX: Mood disorder; COPD; Neuropathy; Frequent falls; HTN; Fibromyalgia; Surgeries: Yes (HIP, suprapubic catheter, Dental) Appendectomy, Gallbladder, Hysterectomy, Orthopedic Respiratory: Yes Asthma, Pneumonia, Chronic Bronchitis, Pulmonary Embolism, COPD, Emphysema Cardiac: Yes (CHF) Neurological: Yes Neuropathy 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 Disorders: No 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 Sexually Transmitted Disease: No HIV/AIDS: No Genitourinary: Yes Kidney Stones, Neurogenic Bladder, UTI-Chronic Gastrointestinal: Yes Abdominal Hernia, Gastroesophageal Reflux, Chronic Constipation, Irritable Bowel Musculoskeletal: Yes Arthritis, Fibromyalgia, Back Injury, Chronic Back Pain, Fractures, Spasms Endocrine: Yes Diabetes, Insulin dep, Hypothyroidsim HEENT: No Hearing Impairment: Hard of Hearing Cancer: Yes Ovarian Psychosocial: Yes ADD/ADHD, Bipolar, Schizophrenia Integumentary: No Blood Disorders: No Family Medical History No Pertinent Family Hx Physical Exam Vital Signs Vital Signs - First Documented 02/09/22 13:30 Temp 36.2 Pulse 99 Resp 18 B/P (MAP) 127/87 (100) Pulse Ox 97 O2 Delivery Nasal Cannula O2 Flow Rate 3.00 Capillary Refill : Height, Weight, BMI Height: '" Weight: 275lbs. oz. 124.075349wk; 42.00 BMI Method:Stated General Appearance: Obese, Other (Whole-body Chorea/dystonia/rhythmic movement) HEENT: PERRL/EOMI Neck: Non Tender, Supple Respiratory: No Accessory Muscle Use, No Respiratory Distress, Wheezing Cardiovascular: Regular Rate, Rhythm, No Edema Gastrointestinal: Non Tender, Soft Extremity: Normal Capillary Refill, Normal Range of Motion Neurologic/Psychiatric: Alert, Oriented x3, Other (Rhythmic movement especially of extremities) Skin: Warm/Dry, Tattoos/Piercings Progress/Results/Core Measures Suspected Sepsis SIRS Temperature: Pulse: Respiratory Rate: Laboratory Tests 02/09/22 13:13: White Blood Count 13.2H Blood Pressure / Mean: Laboratory Tests 02/09/22 13:13: Creatinine 0.83, Platelet Count 214, Total Bilirubin 0.2 Results/Orders Lab Results Laboratory Tests Test 02/09/22 13:03 02/09/22 13:13 02/09/22 13:14 02/09/22 13:24 Range/Units White Blood Count 13.2 H 4.3-11.0 10^3/uL Red Blood Count 5.17 H 3.80-5.11 10^6/uL Hemoglobin 15.2 11.5-16.0 g/dL Hematocrit 47 35-52 % Mean Corpuscular Volume 90 80-99 fL Mean Corpuscular Hemoglobin 29 25-34 pg Mean Corpuscular Hemoglobin Concent 33 32-36 g/dL Red Cell Distribution Width 13.2 10.0-14.5 % Platelet Count 214 130-400 10^3/uL Mean Platelet Volume 9.0 9.0-12.2 fL Immature Granulocyte % (Auto) 1 % Neutrophils (%) (Auto) 70 42-75 % Lymphocytes (%) (Auto) 20 12-44 % Monocytes (%) (Auto) 7 0-12 % Eosinophils (%) (Auto) 2 0-10 % Basophils (%) (Auto) 1 0-10 % Neutrophils # (Auto) 9.2 H 1.8-7.8 10^3/uL Lymphocytes # (Auto) 2.6 1.0-4.0 10^3/uL Monocytes # (Auto) 1.0 0.0-1.0 10^3/uL Eosinophils # (Auto) 0.2 0.0-0.3 10^3/uL Basophils # (Auto) 0.1 0.0-0.1 10^3/uL Immature Granulocyte # (Auto) 0.1 0.0-0.1 10^3/uL Sodium Level 132 L 135-145 MMOL/L Potassium Level 3.6 3.6-5.0 MMOL/L Chloride Level 98 98-107 MMOL/L Carbon Dioxide Level 23 21-32 MMOL/L Anion Gap 11 5-14 MMOL/L Blood Urea Nitrogen 9 7-18 MG/DL Creatinine 0.83 0.60-1.30 MG/DL Estimat Glomerular Filtration Rate 86 BUN/Creatinine Ratio 11 Glucose Level 166 H 70-105 MG/DL Calcium Level 8.4 L 8.5-10.1 MG/DL Corrected Calcium 8.2 L 8.5-10.1 MG/DL Magnesium Level 1.6 1.6-2.4 MG/DL Total Bilirubin 0.2 0.1-1.0 MG/DL Aspartate Amino Transf (AST/SGOT) 17 5-34 U/L Alanine Aminotransferase (ALT/SGPT) 23 0-55 U/L Alkaline Phosphatase 160 H 40-136 U/L Troponin I < 0.30 <0.30 NG/ML C-Reactive Protein 1.11 H <0.50 MG/DL Pro-B-Type Natriuretic Peptide 33.8 <125.0 PG/ML Total Protein 7.5 6.4-8.2 GM/DL Albumin 4.3 3.2-4.5 GM/DL Lipase 31 8-78 U/L Glucometer 188 H 70-110 MG/DL Blood Gas Puncture Site RT TADIAL Blood Gas Patient Temperature 36.2 C Arterial Blood pH 7.30 *L 7.37-7.43 Arterial Blood Partial Pressure CO2 46 H 35-45 MMHG Arterial Blood Partial Pressure O2 65 L 79-93 MMHG Arterial Blood HCO3 23 23-27 MMOL/L Arterial Blood Total CO2 24.0 21.0-31.0 MMOL/L Arterial Blood Oxygen Saturation 90 L 94-100 % Arterial Blood Base Excess -3.9 L -2.5-2.5 MMOL/L Eliu Test OK Blood Gas Ventilator Setting NO Blood Gas Inspired Oxygen 3 LITERS Test 02/09/22 13:30 Range/Units Urine Color YELLOW Urine Clarity CLEAR Urine pH 5.5 5-9 Urine Specific [place] 1.010 L 1.016-1.022 Urine Protein NEGATIVE NEGATIVE Urine Glucose (UA) 3+ H NEGATIVE Urine Ketones NEGATIVE NEGATIVE Urine Nitrite NEGATIVE NEGATIVE Urine Bilirubin NEGATIVE NEGATIVE Urine Urobilinogen 0.2 < = 1.0 MG/DL Urine Leukocyte Esterase NEGATIVE NEGATIVE Urine RBC (Auto) NEGATIVE NEGATIVE Urine RBC NONE /HPF Urine WBC RARE /HPF Urine Squamous Epithelial Cells RARE /HPF Urine Crystals NONE /LPF Urine Bacteria NEGATIVE /HPF Urine Casts NONE /LPF Urine Mucus NEGATIVE /LPF Urine Culture Indicated NO Urine Opiates Screen POSITIVE H NEGATIVE Urine Oxycodone Screen NEGATIVE NEGATIVE Urine Methadone Screen NEGATIVE NEGATIVE Urine Propoxyphene Screen NEGATIVE NEGATIVE Urine Barbiturates Screen NEGATIVE NEGATIVE Ur Tricyclic Antidepressants Screen NEGATIVE NEGATIVE Urine Phencyclidine Screen NEGATIVE NEGATIVE Urine Amphetamines Screen NEGATIVE NEGATIVE Urine Methamphetamines Screen NEGATIVE NEGATIVE Urine Benzodiazepines Screen NEGATIVE NEGATIVE Urine Cocaine Screen NEGATIVE NEGATIVE Urine Cannabinoids Screen NEGATIVE NEGATIVE My Orders Orders - LEGER,AMBREEN L DO Chest 1 View Ap/Pa Only (02/09/22 13:08) Cbc With Automated Diff (02/09/22 13:08) Comprehensive Metabolic Panel (02/09/22 13:08) Drug Screen Stat (Urine) (02/09/22 13:08) Lipase (02/09/22 13:08) Magnesium (02/09/22 13:08) Procalcitonin (Pct) (02/09/22 13:08) Thyroid Stimulating Hormone (02/09/22 13:08) Ua Culture If Indicated (02/09/22 13:08) Probnp Fs (02/09/22 13:08) Crp Fs (02/09/22 13:08) Troponin I Fs (02/09/22 13:08) Ekg Tracing (02/09/22 13:08) Monitor-Rhythm Ecg Trace Only (02/09/22 13:08) Albuterol/Ipra Inhalation Soln (Duoneb I (02/09/22 13:15) Svn Small Volume Nebulizer (02/09/22 13:08) Arterial Blood Gas (02/09/22 13:11) Ns Iv 1000 Ml (Sodium Chloride 0.9%) (02/09/22 13:25) Dilantin (Phenytoin) (02/09/22 14:36) Phenytoin Injection (Dilantin Injection) (02/09/22 14:45) Ns (Ivpb) (Sodium Chloride 0.9% Ivpb Bag (02/09/22 14:43) Medications Given in ED Current Medications Medications Dose Ordered Sig/Kurtis Route Start Time Stop Time Status Last Admin Dose Admin Albuterol/ Ipratropium 3 ml ONCE ONCE INH 02/09/22 13:15 02/09/22 13:16 DC 02/09/22 13:36 3 ML Phenytoin Sodium 250 mg ONCE ONCE IV 02/09/22 14:45 02/09/22 14:46 DC 02/09/22 14:47 250 MG Sodium Chloride 50 ml @ STK-MED ONCE .ROUTE 02/09/22 14:43 02/09/22 14:45 DC 02/09/22 14:47 50 MLS/HR Vital Signs/I&O 02/09/22 02/09/22 13:30 15:22 Temp 36.2 Pulse 99 Resp 18 89 B/P (MAP) 127/87 (100) 124/85 Pulse Ox 97 98 O2 Delivery Nasal Cannula Nasal Cannula O2 Flow Rate 3.00 Capillary Refill : Progress Note : Progress Note Patient will likely a COPD exacerbation with acute upper respiratory infection. Patient reports that she has had "2 seizures prior coming to the ER" patient reported had a seizure-like activity in the ER however it was unwitnessed patient was not postictal and it appeared behavioral. However due to her report I did give her an additional 250 Dilantin since she is postictal and at home. Patient has chronic movement disorder/chorea. I have seen her multiple times in the ER and this is always present did not appear any worse today than normal. Patient's sodium was 132 which was improved from her previous visit on 01/28 in which it was 122. Did discuss with her that I would recommend she follows up with outpatient neurology since she is concerned about these movements despite them being some chronic and she is also concerned about this seizure-like activity becoming worse with a reported history of seizure-like activity. At this time I do not feel patient would benefit from admission since she can follow-up outpatient with neurologist for her seizure history. Patient stable and discharged ECG Initial ECG Impression Date: Feb 09, 2022 Initial ECG Impression Time: 13:10 Initial ECG Rate: 94 Initial ECG Rhythm: Normal Sinus Initial ECG Intervals: QRS (92) Initial ECG Comparisson: Unchanged Diagnostic Imaging Diagonstic Imaging: Xray Plain Films/CT/US/NM/MRI: chest Comments Date of Exam:02/09/22 CHEST 1 VIEW AP/PA ONLY Indication: Chest pain. Comparison is made with prior exam of 01/28/2022. FINDINGS: The heart size, mediastinal configuration, and pulmonary vascularity are within normal limits. There is no pleural effusion, pneumothorax, or pneumonia. The osseous structures are unremarkable. IMPRESSION: No acute cardiopulmonary abnormality. Departure Impression Primary Impression: Chronic obstructive pulmonary disease with lower respiratory infection Additional Impression: History of seizures Disposition: HOME, SELF-CARE Condition: Stable Departure-Patient Inst. Referrals: ANA HASSAN APRN (PCP) Primary Care Physician [facility] (Family) Primary Care Physician Patient Instructions: COPD Exacerbation, Adult ED, Acute Bronchitis, Adult (DC) Add. Discharge Instructions: Please use your inhaler every 4 hours while awake for the next 24 to 48 hours then as needed Please follow-up with your primary care provider on Sunday of next week for recheck of your symptoms Return to the ER as needed I recommend he follow-up with your neurologist if you feel you are getting more frequent seizures or if you feel your jerking and tremors seem to be worsening. Please review your medications with your primary care provider to ensure that there is not a medication reaction Scripts Levofloxacin (Levofloxacin) 500 Mg Tablet 500 MG PO DAILY, #5 TAB 0 Refills . Prov: RENE LEGERR L DO 02/09/22 Prednisone (Prednisone) 20 Mg Tab 40 MG PO DAILY, #10 TAB 0 Refills . Prov: RENE LEGERR L DO 02/09/22 RENE LEGERR L DO Feb 09, 2022 13:07
[2022-02-09] MEDS ORDERED: RT-ALBUTEROL/IPRATROPIUM 3 ML (DUONEB) VIAL INH ONE (13:15)
[2022-02-09 13:21] LABS: BASOPHILS # (AUTO) 0.1 10^3/uL (0.0-0.1); BASOPHILS % (AUTO) 1 % (0-10); EOSINOPHILS # (AUTO) 0.2 10^3/uL (0.0-0.3); EOSINOPHILS % (AUTO) 2 % (0-10); HEMATOCRIT 47 % (35-52); HEMOGLOBIN 15.2 g/dL (11.5-16.0); LYMPHOCYTES # (AUTO) 2.6 10^3/uL (1.0-4.0); LYMPHOCYTES % (AUTO) 20 % (12-44); MEAN CORPUSCULAR HEMOGLOBIN 29 pg (25-34); MEAN CORPUSCULAR HGB CONC 33 g/dL (32-36); MEAN CORPUSCULAR VOLUME 90 fL (80-99); MONOCYTES % (AUTO) 7 % (0-12); NEUTROPHILS # (AUTO) 9.2 10^3/uL (1.8-7.8); NEUTROPHILS % (AUTO) 70 % (42-75); PLATELET COUNT 214 10^3/uL (130-400); WHITE BLOOD COUNT 13.2 10^3/uL (4.3-11.0)
[2022-02-09] MEDS ORDERED: NS IV 1000 ML 1,000 ML IV STA (13:25)
--- NOTE | 2022-02-09 13:27 | Diagnostic Imaging Report ---
Indication: Chest pain. Comparison is made with prior exam of 01/28/2022. FINDINGS: The heart size, mediastinal configuration, and pulmonary vascularity are within normal limits. There is no pleural effusion, pneumothorax, or pneumonia. The osseous structures are unremarkable. IMPRESSION: No acute cardiopulmonary abnormality. Dictated by: Dictated on workstation # [id number]
[2022-02-09 13:40] LABS: BILIRUBIN,URINE NEGATIVE (NEGATIVE); CLARITY,URINE CLEAR; COLOR,URINE YELLOW; GLUCOSE, URINE (UA) 3+ (NEGATIVE); KETONES,URINE NEGATIVE (NEGATIVE); LEUKOCYTE ESTERASE ,URINE NEGATIVE (NEGATIVE); NITRITE,URINE NEGATIVE (NEGATIVE); PH,URINE 5.5 (5-9); PROTEIN,URINE NEGATIVE (NEGATIVE)
[2022-02-09 13:56] LABS: ABG PCO2 46 MMHG (35-45); ABG PO2 65 MMHG (79-93)
[2022-02-09 13:57] LABS: ABG BASE EXCESS -3.9 MMOL/L (-2.5-2.5); ABG OXYGEN SATURATION 90 % (94-100); ALLENS TEST OK
[2022-02-09 13:59] LABS: INSPIRED O2 3 LITERS; PATIENT TEMP 36.2 C; VENTILATOR NO
[2022-02-09 14:02] LABS: BUN/CREATININE RATIO 11; CARBON DIOXIDE 23 MMOL/L (21-32); CHLORIDE 98 MMOL/L (98-107); CREATININE SERUM 0.83 MG/DL (0.60-1.30); GFR ESTIMATED 86; GLUCOSE 166 MG/DL (70-105); POTASSIUM 3.6 MMOL/L (3.6-5.0); SODIUM 132 MMOL/L (135-145)
[2022-02-09 14:03] LABS: ALANINE AMINOTRANSFERASE 23 U/L (0-55); ALKALINE PHOSPHATASE 160 U/L (40-136); BILIRUBIN,TOTAL 0.2 MG/DL (0.1-1.0); CALCIUM 8.4 MG/DL (8.5-10.1); MAGNESIUM 1.6 MG/DL (1.6-2.4)
[2022-02-09 14:04] LABS: ALBUMIN 4.3 GM/DL (3.2-4.5); LIPASE 31 U/L (8-78); TOTAL PROTEIN 7.5 GM/DL (6.4-8.2)
[2022-02-09 14:12] LABS: BACTERIA,URINE NEGATIVE /HPF; SQUAMOUS EPITHELIAL CELL,UR RARE /HPF; WBC,URINE RARE /HPF
[2022-02-09] MEDS ORDERED: LEVO-55 PO ×2 (14:26→15:03)
[2022-02-09] MEDS ORDERED: PRD20T PO ×2 (14:26→15:03)
[2022-02-09 14:41] LABS: AMPHETAMINE SCREEN, URINE NEGATIVE (NEGATIVE); BARBITURATE SCREEN URINE NEGATIVE (NEGATIVE); BENZODIAZEPINES SCREEN URINE NEGATIVE (NEGATIVE); CANNABINOID SCREEN, URINE NEGATIVE (NEGATIVE); COCAINE SCREEN URINE NEGATIVE (NEGATIVE); METHADONE STAT NEGATIVE (NEGATIVE); OPIATE SCREEN URINE POSITIVE (NEGATIVE); OXYCODONE STAT NEGATIVE (NEGATIVE); PROPOXYPHENE STAT NEGATIVE (NEGATIVE); TRICYCLIC ANTIDEPRESSANTS SCRE NEGATIVE (NEGATIVE)
[2022-02-09] MEDS ORDERED: NS (IVPB) 50 ML ONE (14:43)
[2022-02-09] MEDS ORDERED: PHENYTOIN 250 MG/5 ML INJ (DILANTIN) VIAL IV ONE (14:45)
[2022-02-09 15:22] VITALS: BP 124/85
== END 2022-02-09 15:30 | disposition home or self-care (01) ==
LOC: EDUNIT# 13:01 → ER FS 13:02
DX: J44.0 Chronic obstructive pulmonary disease with (acute) lower respiratory infection (principal); E66.9 Obesity, unspecified; Z86.69 Personal history of other diseases of the nervous system and sense organs; Z68.41 Body mass index [BMI] 40.0-44.9, adult; Z99.81 Dependence on supplemental oxygen
CPT/HCPCS: 36415; 71045; 80053; 80185; 80306; 81000; 82805; 82947; 83690; 83735; 83880; 84145; 84443; 84484; 85025; 86141; 93005; 93041

== ENCOUNTER 2022-02-16 02:03 | Emergency (ER) | payer MEDICAID ==
[~2022-02-16] VITALS: Ht 157 cm; Wt 112.0 kg
[~2022-02-16 02:03] MED LIST changes: +LEVO-55 PO
--- NOTE | 2022-02-16 02:10 | ED Headache ---
History of Present Illness Date Seen by Provider: Feb 16, 2022 Time Seen by Provider: 02:10 Initial Comments 51-year-old female presents with migraine. Patient has a history of migraines. She reports that she has had this migraine for least the last 3 to 4 days. The seems to be getting a little bit worse. That she has had a couple episodes of vomiting with it. She denies any fevers chills or other systemic complaints. She reports that she has some photophobia. Similar to her previous migraine Allergies and Home Medications Allergies Coded Allergies: doxycycline (Unverified Allergy, Mild, nauseated, 08/01/09) spinach (Unverified Allergy, Mild, 08/01/09) alprazolam (Verified Allergy, Unknown, 07/18/19) diazepam (Verified Allergy, Unknown, 07/18/19) sumatriptan (Verified Allergy, Unknown, 07/18/19) Patient Home Medication List Home Medication List Reviewed: Yes Albuterol Sulfate (Ventolin Hfa) 1 Puff Puff, 2 PUFF INH Q4H PRN for COUGH, (Reported) Entered as Reported by: PEREZ HENDERSON on 03/29/20 1200 Albuterol/Ipratropium (Combivent Respimat Inhal [place]) 4 Gm Aero, 2 PUFF IH TID Prescribed by: EMILY DOMÍNGUEZ on 10/03/201913 Amoxicillin/Potassium Clav (Augmentin 875-125 Tablet) 1 Each Tablet, 1 EACH PO BID Prescribed by: EMILY DOMÍNGUEZ on 10/03/201913 Amoxicillin/Potassium Clav (Amox Tr-K Clv 875-125 mg Tab) 1 Each Tablet, 1 EACH PO BID Prescribed by: TASH ALARCON on 08/26/212124 Cefdinir (Cefdinir) 300 Mg Capsule, 300 MG PO BID Prescribed by: LEONOR CAMARGO on 03/29/20 1340 Cefuroxime Axetil (Cefuroxime) 250 Mg Tablet, 250 MG PO BID Prescribed by: RAJAT SPARKS on 07/22/21 1540 Cephalexin (Cephalexin) 500 Mg Capsule, 500 MG PO TID Prescribed by: TASH ALARCON on 02/27/21 0633 Cephalexin (Cephalexin) 500 Mg Capsule, 500 MG PO QID Prescribed by: TASH ALARCON on 03/14/212028 Cyclobenzaprine HCl (Cyclobenzaprine HCl) 10 Mg Tablet, 10 MG PO Q8H PRN for SPASMS Prescribed by: TASH ALARCON on 06/29/21 220 Fluticasone Propionate (Flonase Allergy Relief) 9.9 Ml [place].susp, 1 SPRAY NS DAILY Prescribed by: TASH ALARCON on 02/27/21 0633 Furosemide (Furosemide) 40 Mg Tablet, 40 MG PO BID, (Reported) Entered as Reported by: PEREZ HENDERSON on 03/29/20 1200 Gabapentin (Gabapentin) 600 Mg Tablet, 1,200 MG PO TID, (Reported) Entered as Reported by: PEREZ HENDERSON on 03/29/20 1200 Glimepiride (Glimepiride) 2 Mg Tablet, 2 MG PO BID, (Reported) Entered as Reported by: PEREZ HENDERSON on 03/29/20 1200 Haloperidol (Haloperidol) 10 Mg Tablet, 10 MG PO TID, (Reported) Entered as Reported by: PEREZ HENDERSON on 03/29/20 1200 Hydrocodone/Acetaminophen (Hydrocodone-Acetamin 5-325 mg) 1 Each Tablet, 1 TAB PO Q6H PRN for PAIN-MODERATE (5-7) Prescribed by: MAUREEN PARSONS on 08/18/20 1653 Hydrocodone/Acetaminophen (Hydrocodone-Acetamin 5-325 mg) 1 Each Tablet, 1 TAB PO Q8H PRN for PAIN-SEVERE (8-10) Prescribed by: TASH ALARCON on 12/01/20 2309 Levofloxacin (Levofloxacin) 500 Mg Tablet, 500 MG PO DAILY Prescribed by: AMBREEN LEGER on 02/09/22 1503 Lurasidone HCl (Latuda) 120 Mg Tablet, 120 MG PO 1800, (Reported) Entered as Reported by: PEREZ HENDERSON on 03/29/20 1200 Lurasidone HCl (Latuda) 40 Mg Tablet, 40 MG PO 1800, (Reported) Entered as Reported by: PEREZ HENDERSON on 03/29/20 1200 Methocarbamol (Methocarbamol) 500 Mg Tablet, 500 MG PO Q8H Prescribed by: SUELLEN RICO MD on 09/25/21 2327 Montelukast Sodium (Montelukast Sodium) 10 Mg Tablet, 10 MG PO DAILY, (Reported) Entered as Reported by: PEREZ HENDERSON on 03/29/20 1200 Ondansetron (Ondansetron Odt) 4 Mg Tab.rapdis, 4 MG PO Q6H PRN for NAUSEA/VOMITING Prescribed by: TASH Aguilar ENYART on 09/20/20 2318 Ondansetron (Ondansetron Odt) 8 Mg Tab.rapdis, 8 MG PO Q6H PRN for NAUSE A/VOMITING Prescribed by: RAJAT SPARKS on 07/22/21 1540 Ondansetron (Ondansetron Odt) 4 Mg Tab.rapdis, 4 MG PO Q8H PRN for NAUSEA/VOMITING Prescribed by: TASH Aguilar ENYART on 08/26/21 2125 Phenytoin Sodium Extended (Phenytoin Sodium Extended) 200 Mg Capsule, 200 MG PO BID, (Reported) Entered as Reported by: PEREZ HENDERSON on 03/29/20 1200 Potassium Chloride (Potassium Chloride) 20 Meq Tablet.er, 20 MEQ PO DAILY Prescribed by: RADHA ESPINOZA on 06/14/21 1315 Prednisone (Prednisone) 20 Mg Tab, 40 MG PO DAILY Prescribed by: EMILY DOMÍNGUEZ on 10/03/20 1914 Prednisone (Prednisone) 20 Mg Tab, 40 MG PO DAILY Prescribed by: RAJAT SPARKS on 07/22/21 1540 Prednisone (Prednisone) 20 Mg Tab, 40 MG PO DAILY Prescribed by: AMBREEN LEGER on 02/09/22 1503 Quetiapine Fumarate (Quetiapine Fumarate) 100 Mg Tablet, 300 MG PO DAILY, (Reported) Entered as Reported by: PEREZ HENDERSON on 03/29/20 1200 Rivaroxaban (Xarelto) 20 Mg Tablet, 20 MG PO DAILY, (Reported) Entered as Reported by: PEREZ HENDERSON on 03/29/20 1200 Topiramate (Topiramate) 100 Mg Tablet, 200 MG PO BID, (Reported) Entered as Reported by: PEREZ HENDERSON on 03/29/20 1200 Trazodone HCl (Trazodone HCl) 100 Mg Tablet, 200 MG PO HS, (Reported) Entered as Reported by: PEREZ HENDERSON on 03/29/20 1200 Venlafaxine HCl (Venlafaxine HCl ER) 150 Mg Cap.er.24h, 300 MG PO DAILY, (Reported) Entered as Reported by: PEREZ HENDERSON on 03/29/20 1200 Review of Systems Review of Systems Constitutional: No chills, No fever Eyes: Photophobia Ears, Nose, Mouth, Throat: no symptoms reported Respiratory: no symptoms reported Cardiovascular: no symptoms reported Gastrointestinal: No abdominal pain; nausea, vomiting Genitourinary: no symptoms reported Musculoskeletal: no symptoms reported Skin: no symptoms reported Psychiatric/Neurological: Headache Past Yenvqqj-Lzxlnl-Pqoorr Hx Immunizations Up To Date First/Initial COVID19 Vaccinat: 2020 Second COVID19 Vaccination Magdal[place]: 2020 Seasonal Allergies Seasonal Allergies: No Past Medical History Surgery/Hospitalization HX: Mood disorder; COPD; Neuropathy; Frequent falls; HTN; Fibromyalgia; Surgeries: Yes (HIP, suprapubic catheter, Dental) Appendectomy, Gallbladder, Hysterectomy, Orthopedic Respiratory: Yes Asthma, Pneumonia, Chronic Bronchitis, Pulmonary Embolism, COPD, Emphysema Cardiac: Yes (CHF) Neurological: Yes Neuropathy 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 Disorders: No 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 Sexually Transmitted Disease: No HIV/AIDS: No Genitourinary: Yes Kidney Stones, Neurogenic Bladder, UTI-Chronic Gastrointestinal: Yes Abdominal Hernia, Gastroesophageal Reflux, Chronic Constipation, Irritable Bowel Musculoskeletal: Yes Arthritis, Fibromyalgia, Back Injury, Chronic Back Pain, Fractures, Spasms Endocrine: Yes Diabetes, Insulin dep, Hypothyroidsim HEENT: No Hearing Impairment: Hard of Hearing Cancer: Yes Ovarian Psychosocial: Yes ADD/ADHD, Bipolar, Schizophrenia Integumentary: No Blood Disorders: No Family Medical History No Pertinent Family Hx Physical Exam Vital Signs Vital Signs - First Documented 02/16/22 02:08 Temp 36.0 Pulse 85 Resp 18 B/P (MAP) 136/90 (105) Pulse Ox 98 O2 Delivery Nasal Cannula O2 Flow Rate 3.00 Capillary Refill : Height, Weight, BMI Height: '" Weight: 275lbs. oz. 124.815237xy; 46.00 BMI Method:Stated General Appearance: WD/WN, no apparent distress, obese HEENT: PERRL/EOMI Neck: full range of motion Cardiovascular: normal peripheral pulses, regular rate, rhythm Respiratory: no respiratory distress, no accessory muscle use Gastrointestinal: non tender, soft Psychiatric: alert Crainal Nerves: normal hearing, normal speech Coordination/Gait: normal gait Motor/Sensory: no motor deficit, no sensory deficit Skin: warm/dry, tattoos/piercings Progress/Results/Core Measures Results/Orders My Orders Orders - LEGER,AMBREEN L DO Ketorolac Injection (Toradol Injection) (02/16/22 02:14) Diphenhydramine Injection (Benadryl Inje (02/16/22 02:14) Metoclopramide Injection (Reglan Injecti (02/16/22 02:14) Vital Signs/I&O 02/16/22 02/16/22 02:08 02:35 Temp 36.0 36.0 Pulse 85 85 Resp 18 18 B/P (MAP) 136/90 (105) 136/90 Pulse Ox 98 98 O2 Delivery Nasal Cannula Nasal Cannula O2 Flow Rate 3.00 3.00 3.00 Progress Progress Note : Progress Note Patient with known migraine history with multitude of visits. Patient given Benadryl Reglan and Toradol IM shots. Patient discharged home. She should follow-up with her primary care provider as needed. Departure Impression Primary Impression: Migraine Qualified Codes: G43.909 - Migraine, unspecified, not intractable, without status migrainosus Disposition: 01 HOME, SELF-CARE Condition: Stable Departure-Patient Inst. Referrals: ANA HASSAN APRN (PCP) Primary Care Physician [facility] (Family) Primary Care Physician Patient Instructions: Migraines in Adults, How to Keep Track of Your Headaches Add. Discharge Instructions: Follow-up with your primary care provider as needed if symptoms or not improving AMBREEN LEGER DO Feb 16, 2022 02:10
[2022-02-16] MEDS ORDERED: diphenhydrAMINE 50 MG/ML INJ (BENADRYL) IM STA (02:14)
[2022-02-16] MEDS ORDERED: METOCLOPRAMIDE INJ 10 MG/2 ML (REGLAN) IM STA (02:14)
[2022-02-16] MEDS ORDERED: KETOROLAC 30 MG/ML VIAL IVP STA (02:14)
[2022-02-16 02:35] VITALS: BP 136/90
[2022-02-16] MEDS ORDERED: ONDA4TAB11 PO (22:12)
== END 2022-02-16 02:35 | disposition home or self-care (01) ==
LOC: EDUNIT# 02:03 → ER FS 02:08
DX: G43.909 Migraine, unspecified, not intractable, without status migrainosus (principal); E11.40 Type 2 diabetes mellitus with diabetic neuropathy, unspecified; Z79.4 Long term (current) use of insulin
CPT/HCPCS: 99284

== ENCOUNTER 2022-02-16 21:34 | Emergency (ER) | payer MEDICAID ==
[2022-02-16 21:43] VITALS: BP 92/70
[2022-02-16] MEDS ORDERED: ONDA4TAB11 PO (22:12)
--- NOTE | 2022-02-16 22:12 | ED Headache ---
General Chief Complaint: Head/Cervical Problems Stated Complaint: MIGRAINE Nursing Triage Note: pt presents stating "i was here last night for the same thing. i still have a headache" Source: patient Exam Limitations: no limitations History of Present Illness Date Seen by Provider: Feb 16, 2022 Time Seen by Provider: 21:38 Initial Comments 51-year-old female with past medical history of chronic migraines coming in due to what she states is a typical migraine. It's frontal, throbbing, moderate to severe, nothing seems to make it better or worse. Christopher a little bit better last night after coming in and getting some injections, but it came back worse. Having some nausea with it today which is not uncommon for her. She does follow-up with a neurologist for this regularly. Denies any trauma, fever, neck stiffness, weakness, numbness, vision changes, or any other concerns. She says it is consistent with her typical migraine headache. Allergies and Home Medications Allergies Coded Allergies: doxycycline (Unverified Allergy, Mild, nauseated, 08/01/09) spinach (Unverified Allergy, Mild, 08/01/09) alprazolam (Verified Allergy, Unknown, 07/18/19) diazepam (Verified Allergy, Unknown, 07/18/19) sumatriptan (Verified Allergy, Unknown, 07/18/19) Patient Home Medication List Home Medication List Reviewed: Yes Albuterol Sulfate (Ventolin Hfa) 1 Puff Puff, 2 PUFF INH Q4H PRN for COUGH, (Reported) Entered as Reported by: PEREZ HENDERSON on 03/29/20 1200 Albuterol/Ipratropium (Combivent Respimat Inhal [place]) 4 Gm Aero, 2 PUFF IH TID Prescribed by: EMILY DOMÍNGUEZ on 10/03/201913 Amoxicillin/Potassium Clav (Augmentin 875-125 Tablet) 1 Each Tablet, 1 EACH PO BID Prescribed by: EMILY DOMÍNGUEZ on 10/03/201913 Amoxicillin/Potassium Clav (Amox Tr-K Clv 875-125 mg Tab) 1 Each Tablet, 1 EACH PO BID Prescribed by: TASH ALARCON on 08/26/215 Cefdinir (Cefdinir) 300 Mg Capsule, 300 MG PO BID Prescribed by: LEONOR CAMARGO on 03/29/20 1340 Cefuroxime Axetil (Cefuroxime) 250 Mg Tablet, 250 MG PO BID Prescribed by: RAJAT SPARKS on 07/22/21 1540 Cephalexin (Cephalexin) 500 Mg Capsule, 500 MG PO TID Prescribed by: TASH ALARCON on 02/27/21632 Cephalexin (Cephalexin) 500 Mg Capsule, 500 MG PO QID Prescribed by: TASH ALARCON on 03/14/212028 Cyclobenzaprine HCl (Cyclobenzaprine HCl) 10 Mg Tablet, 10 MG PO Q8H PRN for SPASMS Prescribed by: TASH ALARCON on 06/29/212207 Fluticasone Propionate (Flonase Allergy Relief) 9.9 Ml [place].susp, 1 SPRAY NS DAILY Prescribed by: TASH ALARCON on 02/27/21632 Furosemide (Furosemide) 40 Mg Tablet, 40 MG PO BID, (Reported) Entered as Reported by: PEREZ HENDERSON on 03/29/20 1200 Gabapentin (Gabapentin) 600 Mg Tablet, 1,200 MG PO TID, (Reported) Entered as Reported by: PEREZ HENDERSON on 03/29/20 1200 Glimepiride (Glimepiride) 2 Mg Tablet, 2 MG PO BID, (Reported) Entered as Reported by: PEREZ HENDERSON on 03/29/20 1200 Haloperidol (Haloperidol) 10 Mg Tablet, 10 MG PO TID, (Reported) Entered as Reported by: PEREZ HENDERSON on 03/29/20 1200 Hydrocodone/Acetaminophen (Hydrocodone-Acetamin 5-325 mg) 1 Each Tablet, 1 TAB PO Q6H PRN for PAIN-MODERATE (5-7) Prescribed by: MAUREEN PARSONS on 08/18/20 1653 Hydrocodone/Acetaminophen (Hydrocodone-Acetamin 5-325 mg) 1 Each Tablet, 1 TAB PO Q8H PRN for PAIN-SEVERE (8-10) Prescribed by: TASH ALARCON on 12/01/20 2309 Levofloxacin (Levofloxacin) 500 Mg Tablet, 500 MG PO DAILY Prescribed by: AMBREEN LEGER on 02/09/22 1503 Lurasidone HCl (Latuda) 120 Mg Tablet, 120 MG PO 1800, (Reported) Entered as Reported by: PEREZ HENDERSON on 03/29/20 1200 Lurasidone HCl (Latuda) 40 Mg Tablet, 40 MG PO 1800, (Reported) Entered as Reported by: PEREZ HENDERSON on 03/29/20 1200 Methocarbamol (Methocarbamol) 500 Mg Tablet, 500 MG PO Q8H Prescribed by: SUELLEN RICO MD on 09/25/21 232 Montelukast Sodium (Montelukast Sodium) 10 Mg Tablet, 10 MG PO DAILY, (Reported) Entered as Reported by: PEREZ HENDERSON on 03/29/20 1200 Ondansetron (Ondansetron Odt) 4 Mg Tab.rapdis, 4 MG PO Q6H PRN for NAUSEA/VOMITING Prescribed by: TASH HANYART on 09/20/20 2318 Ondansetron (Ondansetron Odt) 8 Mg Tab.rapdis, 8 MG PO Q6H PRN for NAUSEA/VOMITING Prescribed by: RAJAT SPARKS on 07/22/21 154 Ondansetron (Ondansetron Odt) 4 Mg Tab.rapdis, 4 MG PO Q8H PRN for NAUSEA/VOMITING Prescribed by: TASH HANYART on 08/26/212124 Phenytoin Sodium Extended (Phenytoin Sodium Extended) 200 Mg Capsule, 200 MG PO BID, (Reported) Entered as Reported by: PEREZ HENDERSON on 03/29/20 1200 Potassium Chloride (Potassium Chloride) 20 Meq Tablet.er, 20 MEQ PO DAILY Prescribed by: RADHA ESPINOZA on 06/14/21 1315 Prednisone (Prednisone) 20 Mg Tab, 40 MG PO DAILY Prescribed by: EIMLY DOMÍNGUEZ on 10/03/20 1914 Prednisone (Prednisone) 20 Mg Tab, 40 MG PO DAILY Prescribed by: RAJAT SPARKS on 07/22/21 1540 Prednisone (Prednisone) 20 Mg Tab, 40 MG PO DAILY Prescribed by: AMBREEN LEEGR on 02/09/22 1503 Quetiapine Fumarate (Quetiapine Fumarate) 100 Mg Tablet, 300 MG PO DAILY, (Reported) Entered as Reported by: PEREZ HENDERSON on 03/29/20 1200 Rivaroxaban (Xarelto) 20 Mg Tablet, 20 MG PO DAILY, (Reported) Entered as Reported by: PEREZ HENDERSON on 03/29/20 1200 Topiramate (Topiramate) 100 Mg Tablet, 200 MG PO BID, (Reported) Entered as Reported by: PEREZ HENDERSON on 03/29/20 1200 Trazodone HCl (Trazodone HCl) 100 Mg Tablet, 200 MG PO HS, (Reported) Entered as Reported by: PEREZ HENDERSON on 03/29/20 1200 Venlafaxine HCl (Venlafaxine HCl ER) 150 Mg Cap.er.24h, 300 MG PO DAILY, (Reported) Entered as Reported by: PEREZ HENDERSON on 03/29/20 1200 Review of Systems Review of Systems Constitutional: No fever Eyes: Denies Blurred Vision Ears, Nose, Mouth, Throat: no symptoms reported Respiratory: no symptoms reported Cardiovascular: no symptoms reported Gastrointestinal: no symptoms reported Genitourinary: no symptoms reported Musculoskeletal: no symptoms reported Skin: no symptoms reported Psychiatric/Neurological: See HPI All Other Systems Reviewed Negative Unless Noted: Yes Past Gnodldi-Ucxmwf-Kfzzvn Hx Patient Social History Tobacco Use?: Yes Smoking Status: Current Everyday Smoker Substance use?: No Alcohol Use?: No Pt feels they are or have been: No Immunizations Up To Date Influenza Vaccine Up-to-Date: No; Not Current First/Initial COVID19 Vaccinat: 2020 Second COVID19 Vaccination [place]: 2020 Seasonal Allergies Seasonal Allergies: No Past Medical History Surgery/Hospitalization HX: Mood disorder; COPD; Neuropathy; Frequent falls; HTN; Fibromyalgia; Surgeries: Yes (HIP, suprapubic catheter, Dental) Appendectomy, Gallbladder, Hysterectomy, Orthopedic Respiratory: Yes Asthma, Pneumonia, Chronic Bronchitis, Pulmonary Embolism, COPD, Emphysema Cardiac: Yes (CHF) Neurological: Yes Neuropathy 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 Disorders: No 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 Sexually Transmitted Disease: No HIV/AIDS: No Genitourinary: Yes Kidney Stones, Neurogenic Bladder, UTI-Chronic Gastrointestinal: Yes Abdominal Hernia, Gastroesophageal Reflux, Chronic Constipation, Irritable Bowel Musculoskeletal: Yes Arthritis, Fibromyalgia, Back Injury, Chronic Back Pain, Fractures, Spasms Endocrine: Yes Diabetes, Insulin dep, Hypothyroidsim HEENT: No Hearing Impairment: Hard of Hearing Cancer: Yes Ovarian Psychosocial: Yes ADD/ADHD, Bipolar, Schizophrenia Integumentary: No Blood Disorders: No Family Medical History No Pertinent Family Hx Physical Exam Vital Signs Vital Signs - First Documented 02/16/22 21:43 Temp 36.0 Pulse 80 Resp 18 B/P (MAP) 92/70 (77) Pulse Ox 100 O2 Delivery Nasal Cannula O2 Flow Rate 2.00 Capillary Refill : Height, Weight, BMI Height: '" Weight: 275lbs. oz. 124.646168uz; 45.00 BMI Method:Stated General Appearance: WD/WN, no apparent distress HEENT: PERRL/EOMI, normal ENT inspection, pharynx normal Neck: non-tender, full range of motion, supple, normal inspection Cardiovascular: regular rate, rhythm, no edema, no murmur Respiratory: chest non-tender, lungs clear, normal breath sounds, no respiratory distress, no accessory muscle use Gastrointestinal: normal bowel sounds, non tender, soft; No distended, No guarding Back: normal inspection Extremities: normal range of motion, non-tender, normal inspection, no pedal edema, no calf tenderness, normal capillary refill Psychiatric: alert, oriented x 3 Crainal Nerves: normal hearing, normal speech, PERRL Coordination/Gait: normal gait Motor/Sensory: no motor deficit, no sensory deficit Skin: normal color Lymphatic: no adenopathy Progress/Results/Core Measures Results/Orders Vital Signs/I&O 02/16/22 21:43 Temp 36.0 Pulse 80 Resp 18 B/P (MAP) 92/70 (77) Pulse Ox 100 O2 Delivery Nasal Cannula O2 Flow Rate 2.00 Blood Pressure Mean: 77 Progress Progress Note : Progress Note 51-year-old female with above history presenting for her typical headache. ABCs were intact and vitals were stable on presentation. Physical exam reassuring including a normal neurologic exam. She was given a headache cocktail with improvement in symptoms. Given Decadron to hopefully help with rebound headache. I discussed this will increase her blood sugar and to watch it more closely. She is agreeable to this. She was then discharged home in stable condition with strict return precautions. She should follow-up with her neurologist. Departure Impression Primary Impression: Headache Qualified Codes: G44.229 - Chronic tension-type headache, not intractable Disposition: HOME, SELF-CARE Condition: Stable Departure-Patient Inst. Decision time for Depature: 22:25 Referrals: ANA HASSAN APRN (PCP) Primary Care Physician [facility] (Family) Primary Care Physician Patient Instructions: Migraines (DC) Add. Discharge Instructions: Please call your neurologist and/or your primary care physician to have a follow-up appointment to see if there are any medications they could change to improve your headaches. Patient to drink plenty of fluids, take Tylenol as needed. Nausea medicines were sent to your pharmacy if you need. Scripts Ondansetron (Ondansetron Odt) 4 Mg Tab.rapdis 4 MG PO Q6H PRN for NAUSEA/VOMITING-1ST LINE for 5 Days, #20 TAB Prov: SERINA YOUNGBLOOD MD 02/16/22 Work/School Note: Work Release Form Date Seen in the Emergency Department: Feb 16, 2022 Return to Work: Feb 18, 2022 Restrictions: No Restrictions SERINA YOUNGBLOOD MD Feb 16, 2022 22:12
[2022-02-16] MEDS ORDERED: diphenhydrAMINE 50 MG/ML INJ (BENADRYL) IM ONE (22:15)
[2022-02-16] MEDS ORDERED: PROCHLORPERAZINE 10 MG/2ML INJ (COMPAZINE) IM ONE (22:15)
[2022-02-16] MEDS ORDERED: DROPERIDOL 5 MG/2 ML (INAPSINE) ED ONLY! IM ONE (22:15)
[2022-02-16] MEDS ORDERED: KETOROLAC 30 MG/ML VIAL IM ONE (22:15)
== END 2022-02-16 22:27 | disposition home or self-care (01) ==
LOC: EDUNIT# 21:34 → ER FS 21:36
DX: R51.9 Headache, unspecified (principal); E11.40 Type 2 diabetes mellitus with diabetic neuropathy, unspecified; F17.200 Nicotine dependence, unspecified, uncomplicated; Z86.69 Personal history of other diseases of the nervous system and sense organs; Z28.310 Unvaccinated for COVID-19; Z79.4 Long term (current) use of insulin
CPT/HCPCS: 99284

== ENCOUNTER 2022-02-21 23:29 | Emergency (ER) | payer MEDICAID ==
[~2022-02-21] VITALS: Ht 154.9 cm; Wt 106.0 kg
[2022-02-21] MEDS ORDERED: diphenhydrAMINE 25 MG TAB (BENADRYL) PO ONE (23:45)
[2022-02-21] MEDS ORDERED: PROCHLORPERAZINE 10 MG/2ML INJ (COMPAZINE) IV ONE (23:45)
--- NOTE | 2022-02-21 23:49 | ED General ---
General Chief Complaint: Neurological Problems Stated Complaint: SEIZURE Source of Information: Patient, EMS Exam Limitations: No Limitations History of Present Illness Date Seen by Provider: Feb 21, 2022 Time Seen by Provider: 23:36 Initial Comments 51-year-old female well-known to this emergency department coming in due to seizure-like activity of EMS. She says she has seizures at least weekly, is on multiple medicines for them, and had roughly 3 of them today. Most recent was less than 30 minutes prior to arrival. Per EMS she was not postictal for them, vitals were within normal limits, and her neuro exam was normal. She took all of her seizure medicine like she is supposed to today. She does have chronic headaches, and it has been worsening today. She says decreased sleep and headaches can worsen her seizures. She denies any vision changes, weakness, numbness, chest pain, shortness of breath, abdominal pain, nausea, vomiting, diarrhea, or any other concerns. Allergies and Home Medications Allergies Coded Allergies: doxycycline (Unverified Allergy, Mild, nauseated, 08/01/09) spinach (Unverified Allergy, Mild, 08/01/09) alprazolam (Verified Allergy, Unknown, 07/18/19) diazepam (Verified Allergy, Unknown, 07/18/19) sumatriptan (Verified Allergy, Unknown, 07/18/19) Patient Home Medication List Home Medication List Reviewed: Yes Albuterol Sulfate (Ventolin Hfa) 1 Puff Puff, 2 PUFF INH Q4H PRN for COUGH, (Reported) Entered as Reported by: PEREZ HENDERSON on 03/29/20 1200 Albuterol/Ipratropium (Combivent Respimat Inhal [place]) 4 Gm Aero, 2 PUFF IH TID Prescribed by: EMILY DOMÍNGUEZ on 10/03/201913 Furosemide (Furosemide) 40 Mg Tablet, 40 MG PO BID, (Reported) Entered as Reported by: PEREZ HENDERSON on 03/29/20 1200 Gabapentin (Gabapentin) 600 Mg Tablet, 1,200 MG PO TID, (Reported) Entered as Reported by: PEREZ HENDERSON on 03/29/20 1200 Glimepiride (Glimepiride) 2 Mg Tablet, 2 MG PO BID, (Reported) Entered as Reported by: PEREZ HENDERSON on 03/29/20 1200 Haloperidol (Haloperidol) 10 Mg Tablet, 10 MG PO TID, (Reported) Entered as Reported by: PEREZ HENDERSON on 03/29/201199 Lurasidone HCl (Latuda) 120 Mg Tablet, 120 MG PO 1800, (Reported) Entered as Reported by: PEREZ HENDERSON on 03/29/201199 Lurasidone HCl (Latuda) 40 Mg Tablet, 40 MG PO 1800, (Reported) Entered as Reported by: PEREZ HENDERSON on 03/29/201199 Methocarbamol (Methocarbamol) 500 Mg Tablet, 500 MG PO Q8H Prescribed by: SUELLEN RICO MD on 09/25/212326 Montelukast Sodium (Montelukast Sodium) 10 Mg Tablet, 10 MG PO DAILY, (Reported) Entered as Reported by: PEREZ HENDERSON on 03/29/201199 Phenytoin Sodium Extended (Phenytoin Sodium Extended) 200 Mg Capsule, 200 MG PO BID, (Reported) Entered as Reported by: PEREZ HENDERSON on 03/29/201199 Quetiapine Fumarate (Quetiapine Fumarate) 100 Mg Tablet, 300 MG PO DAILY, (Reported) Entered as Reported by: PEREZ HENDERSON on 03/29/201199 Rivaroxaban (Xarelto) 20 Mg Tablet, 20 MG PO DAILY, (Reported) Entered as Reported by: PEREZ HENDERSON on 03/29/201199 Topiramate (Topiramate) 100 Mg Tablet, 200 MG PO BID, (Reported) Entered as Reported by: PEREZ HENDERSON on 03/29/201199 Trazodone HCl (Trazodone HCl) 100 Mg Tablet, 200 MG PO HS, (Reported) Entered as Reported by: PEREZ HENDERSON on 03/29/201199 Venlafaxine HCl (Venlafaxine HCl ER) 150 Mg Cap.er.24h, 300 MG PO DAILY, (Reported) Entered as Reported by: PEREZ HENDERSON on 03/29/20 1200 Discontinued Medications Amoxicillin/Potassium Clav (Augmentin 875-125 Tablet) 1 Each Tablet, 1 EACH PO BID Discontinued Reason: Referral/FU Appt-Addtl Prescribed by: EMILY DOMÍNGUEZ on 10/03/201913 Last Action: Discontinued Amoxicillin/Potassium Clav (Amox Tr-K Clv 875-125 mg Tab) 1 Each Tablet, 1 EACH PO BID Discontinued Reason: Referral/FU Appt-Addtl Prescribed by: TASH ALARCON on 08/26/212124 Last Action: Discontinued Cefdinir (Cefdinir) 300 Mg Capsule, 300 MG PO BID Discontinued Reason: Referral/FU Appt-Addtl Prescribed by: LEONOR CAMARGO on 03/29/20 1340 Last Action: Discontinued Cefuroxime Axetil (Cefuroxime) 250 Mg Tablet, 250 MG PO BID Discontinued Reason: Referral/FU Appt-Addtl Prescribed by: RAJAT SPARKS on 07/22/21 1540 Last Action: Discontinued Cephalexin (Cephalexin) 500 Mg Capsule, 500 MG PO TID Discontinued Reason: Referral/FU Appt-Addtl Prescribed by: TASH ALARCON on 02/27/21632 Last Action: Discontinued Cephalexin (Cephalexin) 500 Mg Capsule, 500 MG PO QID Discontinued Reason: Referral/FU Appt-Addtl Prescribed by: TASH ALARCON on 03/14/212028 Last Action: Discontinued Cyclobenzaprine HCl (Cyclobenzaprine HCl) 10 Mg Tablet, 10 MG PO Q8H PRN for SPASMS Discontinued Reason: Referral/FU Appt-Addtl Prescribed by: TASH ALARCON on 06/29/212207 Last Action: Discontinued Fluticasone Propionate (Flonase Allergy Relief) 9.9 Ml [place].susp, 1 SPRAY NS DAILY Discontinued Reason: Referral/FU Appt-Addtl Prescribed by: TASH ALARCON on 02/27/21632 Last Action: Discontinued Hydrocodone/Acetaminophen (Hydrocodone-Acetamin 5-325 mg) 1 Each Tablet, 1 TAB PO Q6H PRN for PAIN-MODERATE (5-7) Discontinued Reason: Referral/FU Appt-Addtl Prescribed by: MAUREEN PARSONS on 08/18/20 1653 Last Action: Discontinued Hydrocodone/Acetaminophen (Hydrocodone-Acetamin 5-325 mg) 1 Each Tablet, 1 TAB PO Q8H PRN for PAIN-SEVERE (8-10) Discontinued Reason: Referral/FU Appt-Addtl Prescribed by: TASH ALARCON on 12/01/20 230 Last Action: Discontinued Levofloxacin (Levofloxacin) 500 Mg Tablet, 500 MG PO DAILY Discontinued Reason: Referral/FU Appt-Addtl Prescribed by: AMBREEN LEGER on 02/09/22 1503 Last Action: Discontinued Ondansetron (Ondansetron Odt) 4 Mg Tab.rapdis, 4 MG PO Q6H PRN for NAUSEA/VOMITING Discontinued Reason: Referral/FU Appt-Addtl Prescribed by: TASH ALARCON on 09/20/208 Last Action: Discontinued Ondansetron (Ondansetron Odt) 8 Mg Tab.rapdis, 8 MG PO Q6H PRN for NAUSEA/VOMITING Discontinued Reason: Referral/FU Appt-Addtl Prescribed by: RAJAT SPARKS on 07/22/21 154 Last Action: Discontinued Ondansetron (Ondansetron Odt) 4 Mg Tab.rapdis, 4 MG PO Q8H PRN for NAUSEA/VOMITING Discontinued Reason: Referral/FU Appt-Addtl Prescribed by: TASH ALARCON on 08/26/212124 Last Action: Discontinued Ondansetron (Ondansetron Odt) 4 Mg Tab.rapdis, 4 MG PO Q6H PRN for NAUSEA/VOMITING-1ST LINE Discontinued Reason: Referral/FU Appt-Addtl Prescribed by: SERINA YOUNGBLOOD on 02/16/222211 Last Action: Discontinued Potassium Chloride (Potassium Chloride) 20 Meq Tablet.er, 20 MEQ PO DAILY Discontinued Reason: Referral/FU Appt-Addtl Prescribed by: RADHA ESPINOZA on 06/14/21 1315 Last Action: Discontinued Prednisone (Prednisone) 20 Mg Tab, 40 MG PO DAILY Discontinued Reason: Referral/FU Appt-Addtl Prescribed by: EMILY DOMÍNGUEZ on 10/03/20 1914 Last Action: Discontinued Prednisone (Prednisone) 20 Mg Tab, 40 MG PO DAILY Discontinued Reason: Referral/FU Appt-Addtl Prescribed by: RAJAT SPARKS on 07/22/21 154 Last Action: Discontinued Prednisone (Prednisone) 20 Mg Tab, 40 MG PO DAILY Discontinued Reason: Referral/FU Appt-Addtl Prescribed by: AMBREEN LEGER on 02/09/22 150 Last Action: Discontinued Review of Systems Review of Systems Constitutional: No fever EENTM: No blurred vision Respiratory: no symptoms reported Cardiovascular: no symptoms reported Gastrointestinal: no symptoms reported Genitourinary: no symptoms reported Musculoskeletal: no symptoms reported Skin: no symptoms reported Psychiatric/Neurological: See HPI Hematologic/Lymphatic: No Symptoms Reported Immunological/Allergic: no symptoms reported All Other Systems Reviewed Negative Unless Noted: Yes Past Hukvjfm-Azeszi-Apowpc Hx Patient Social History Substance use?: No Immunizations Up To Date First/Initial COVID19 Vaccinat: 2020 Second COVID19 Vaccination Magdal[place]: 2020 Seasonal Allergies Seasonal Allergies: No Past Medical History Surgery/Hospitalization HX: Mood disorder; COPD; Neuropathy; Frequent falls; HTN; Fibromyalgia; Surgeries: Yes (HIP, suprapubic catheter, Dental) Appendectomy, Gallbladder, Hysterectomy, Orthopedic Respiratory: Yes Asthma, Pneumonia, Chronic Bronchitis, Pulmonary Embolism, COPD, Emphysema Cardiac: Yes (CHF) Neurological: Yes Neuropathy 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 Disorders: No 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 Sexually Transmitted Disease: No HIV/AIDS: No Genitourinary: Yes Kidney Stones, Neurogenic Bladder, UTI-Chronic Gastrointestinal: Yes Abdominal Hernia, Gastroesophageal Reflux, Chronic Constipation, Irritable Bowel Musculoskeletal: Yes Arthritis, Fibromyalgia, Back Injury, Chronic Back Pain, Fractures, Spasms Endocrine: Yes Diabetes, Insulin dep, Hypothyroidsim HEENT: No Hearing Impairment: Hard of Hearing Cancer: Yes Ovarian Psychosocial: Yes ADD/ADHD, Bipolar, Schizophrenia Integumentary: No Blood Disorders: No Family Medical History No Pertinent Family Hx Physical Exam Vital Signs Capillary Refill : Height, Weight, BMI Height: '" Weight: 275lbs. oz. 124.732177sa; 45.00 BMI Method:Stated General Appearance: No Apparent Distress, WD/WN Eyes: Bilateral Eye Normal Inspection, Bilateral Eye PERRL HEENT: PERRL/EOMI, Normal ENT Inspection, Pharynx Normal Neck: Full Range of Motion, Normal Inspection, Non Tender, Supple Respiratory: Chest Non Tender, Lungs Clear, Normal Breath Sounds, No Accessory Muscle Use, No Respiratory Distress Cardiovascular: Regular Rate, Rhythm, No Edema, Normal Peripheral Pulses Gastrointestinal: Normal Bowel Sounds, Non Tender, Soft; No Distended, No Guarding Back: Normal Inspection Extremity: Normal Capillary Refill, Normal Inspection, Normal Range of Motion, Non Tender, No Calf Tenderness, No Pedal Edema Neurologic/Psychiatric: Alert, Oriented x3, No Motor/Sensory Deficits, Normal Mood/Affect, manager 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 Norm as Tested Skin: Normal Color, Warm/Dry Lymphatic: No Adenopathy Progress/Results/Core Measures Suspected Sepsis SIRS Temperature: Pulse: Respiratory Rate: Blood Pressure / Mean: Laboratory Tests 02/21/22 23:40: Creatinine 0.94 Results/Orders Lab Results Laboratory Tests Test 02/21/22 23:40 Range/Units Sodium Level 134 L 135-145 MMOL/L Potassium Level 3.9 3.6-5.0 MMOL/L Chloride Level 101 98-107 MMOL/L Carbon Dioxide Level 21 21-32 MMOL/L Anion Gap 12 5-14 MMOL/L Blood Urea Nitrogen 14 7-18 MG/DL Creatinine 0.94 0.60-1.30 MG/DL Estimat Glomerular Filtration Rate 74 BUN/Creatinine Ratio 15 Glucose Level 120 H 70-105 MG/DL Calcium Level 8.7 8.5-10.1 MG/DL My Orders Orders - SERINA YOUNGBLOOD MD Basic Metabolic Panel (02/21/22 23:39) Levetiracetam Injection (Keppra Injectio (02/21/22 23:41) Prochlorperazine Injection (Compazine In (02/21/22 23:45) Diphenhydramine Tablet (Benadryl Tablet) (02/21/22 23:45) Medications Given in ED Current Medications Medications Dose Ordered Sig/Kurtis Route Start Time Stop Time Status Last Admin Dose Admin Diphenhydramine HCl 25 mg ONCE ONCE PO 02/21/22 23:45 02/21/22 23:46 DC 02/21/22 23:53 25 MG Prochlorperazine Edisylate 10 mg ONCE ONCE IV 02/21/22 23:45 02/21/22 23:46 DC 02/21/22 23:53 10 MG Vital Signs/I&O Capillary Refill : Progress Note : Progress Note 51-year-old female with above history coming in due to increasing seizure-like activity with known seizures. ABCs were intact and vitals were stable on presentation. Her neuro exam is normal, she is at her baseline. We gave her an extra dose of her Keppra to hopefully help hold off on more seizures. Given her history of headaches and worsening headache today, give her her typical migraine cocktail with significant improvement in her symptoms. On reassessment, she says she feels back to her baseline. Basic labs obtained to mostly obsess for her sodium which was unremarkable, and not low enough to cause seizures. Departure Impression Primary Impression: Seizures Additional Impression: Headache Qualified Codes: G44.229 - Chronic tension-type headache, not intractable Disposition: HOME, SELF-CARE Condition: Improved Departure-Patient Inst. Decision time for Depature: 00:37 Referrals: ANA HASSAN APRN (PCP) Primary Care Physician [facility] (Family) Primary Care Physician Patient Instructions: Headache, Adult ED Add. Discharge Instructions: Continue to take your seizure medicines like you were prescribed. If you cont inue to have more seizures than normal, and then call your doctor to change your medicines. SERINA YOUNGBLOOD MD Feb 21, 2022 23:49
[2022-02-22 00:21] LABS: POTASSIUM 3.9 MMOL/L (3.6-5.0)
[2022-02-22 00:24] LABS: CALCIUM 8.7 MG/DL (8.5-10.1); CREATININE SERUM 0.94 MG/DL (0.60-1.30)
[2022-02-22 01:11] VITALS: BP 108/52
== END 2022-02-22 01:11 | disposition home or self-care (01) ==
LOC: EDUNIT# 23:29 → ER FS 23:32
DX: R56.9 Unspecified convulsions (principal); R51.9 Headache, unspecified; E11.40 Type 2 diabetes mellitus with diabetic neuropathy, unspecified; Z79.4 Long term (current) use of insulin
CPT/HCPCS: 36415; 80048

== ENCOUNTER 2022-03-02 22:16 | Emergency (ER) | payer MEDICAID ==
[~2022-03-02] VITALS: Ht 154.9 cm; Wt 106.0 kg
--- NOTE | 2022-03-02 22:38 | ED Headache ---
General Chief Complaint: Head/Cervical Problems Stated Complaint: HEADACHE,CONSTIPATION History of Present Illness Date Seen by Provider: Mar 02, 2022 Time Seen by Provider: 22:35 Initial Comments [id number] female with PMH of grains/COPD on home oxygen/active chronic smoker/obesity, is here with complaints of migraine which has been going on for the past 2 days. Patient was seen by PCP in the clinic today morning where she received a migraine cocktail and a muscle relaxant. Patient states that her migraine improved with that and then came back again in the afternoon. Patient has associated photophobia and nausea. Denies neck pain or neck stiffness, fever, chills, shortness of breath, cough, abdominal pain or diarrhea, dizziness. Patient states that she has not been drinking much water at all, approximately 1 glass of water per day. Allergies and Home Medications Allergies Coded Allergies: doxycycline (Unverified Allergy, Mild, nauseated, 08/01/09) spinach (Unverified Allergy, Mild, 08/01/09) alprazolam (Verified Allergy, Unknown, 07/18/19) diazepam (Verified Allergy, Unknown, 07/18/19) sumatriptan (Verified Allergy, Unknown, 07/18/19) Patient Home Medication List Home Medication List Reviewed: Yes Albuterol Sulfate (Ventolin Hfa) 1 Puff Puff, 2 PUFF INH Q4H PRN for COUGH, (Reported) Entered as Reported by: PEREZ HENDERSON on 03/29/201199 Albuterol/Ipratropium (Combivent Respimat Inhal [place]) 4 Gm Aero, 2 PUFF IH TID Prescribed by: EMILY DOMÍNGUEZ on 10/03/201913 Furosemide (Furosemide) 40 Mg Tablet, 40 MG PO BID, (Reported) Entered as Reported by: PEREZ HENDERSON on 03/29/20 1200 Gabapentin (Gabapentin) 600 Mg Tablet, 1,200 MG PO TID, (Reported) Entered as Reported by: PEREZ HENDERSON on 03/29/20 1200 Glimepiride (Glimepiride) 2 Mg Tablet, 2 MG PO BID, (Reported) Entered as Reported by: PEREZ HENDERSON on 03/29/20 1200 Haloperidol (Haloperidol) 10 Mg Tablet, 10 MG PO TID, (Reported) Entered as Reported by: PEREZ HENDERSON on 10/26/20 1200 Lurasidone HCl (Latuda) 120 Mg Tablet, 120 MG PO 1800, (Reported) Entered as Reported by: PEREZ HENDERSON on 03/29/201199 Lurasidone HCl (Latuda) 40 Mg Tablet, 40 MG PO 1800, (Reported) Entered as Reported by: PEREZ HENDERSON on 03/29/201199 Methocarbamol (Methocarbamol) 500 Mg Tablet, 500 MG PO Q8H Prescribed by: SUELLEN RICO MD on 09/25/212326 Montelukast Sodium (Montelukast Sodium) 10 Mg Tablet, 10 MG PO DAILY, (Reported) Entered as Reported by: PEREZ HENDERSON on 03/29/201199 Phenytoin Sodium Extended (Phenytoin Sodium Extended) 200 Mg Capsule, 200 MG PO BID, (Reported) Entered as Reported by: PEREZ HENDERSON on 03/29/201199 Quetiapine Fumarate (Quetiapine Fumarate) 100 Mg Tablet, 300 MG PO DAILY, (Reported) Entered as Reported by: PEREZ HENDERSON on 03/29/201199 Rivaroxaban (Xarelto) 20 Mg Tablet, 20 MG PO DAILY, (Reported) Entered as Reported by: PEREZ HENDERSON on 03/29/201199 Topiramate (Topiramate) 100 Mg Tablet, 200 MG PO BID, (Reported) Entered as Reported by: PEREZ HENDERSON on 03/29/201199 Trazodone HCl (Trazodone HCl) 100 Mg Tablet, 200 MG PO HS, (Reported) Entered as Reported by: PEREZ HENDERSON on 03/29/201199 Venlafaxine HCl (Venlafaxine HCl ER) 150 Mg Cap.er.24h, 300 MG PO DAILY, (Reported) Entered as Reported by: PEREZ HENDERSON on 03/29/201199 Review of Systems Review of Systems Constitutional: no symptoms reported Eyes: No Symptoms Reported Ears, Nose, Mouth, Throat: no symptoms reported Respiratory: no symptoms reported Cardiovascular: no symptoms reported Gastrointestinal: no symptoms reported Genitourinary: no symptoms reported : No Musculoskeletal: no symptoms reported Skin: no symptoms reported Psychiatric/Neurological: Headache Past Efltjqo-Peavzl-Jjpwos Hx Patient Social History Tobacco Use?: Yes Tobacco type used: Cigarettes Smoking Status: Current Everyday Smoker Substance use?: No 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 Alcohol Use?: No Pt feels they are or have been: No Immunizations Up To Date First/Initial COVID19 Vaccinat: 2020 Second COVID19 Vaccination Magdal[place]: 2020 Third COVID19 Vaccination Date: 2020 Seasonal Allergies Seasonal Allergies: No Past Medical History Surgery/Hospitalization HX: Mood disorder; COPD; Neuropathy; Frequent falls; HTN; Fibromyalgia; O2 dependent Surgeries: Yes (HIP, suprapubic catheter, Dental) Appendectomy, Gallbladder, Hysterectomy, Orthopedic Respiratory: Yes Asthma, Pneumonia, Chronic Bronchitis, Pulmonary Embolism, COPD, Emphysema Cardiac: Yes (CHF) Neurological: Yes Neuropathy 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 Disorders: No 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 Sexually Transmitted Disease: No HIV/AIDS: No Genitourinary: Yes Kidney Stones, Neurogenic Bladder, UTI-Chronic Gastrointestinal: Yes Abdominal Hernia, Gastroesophageal Reflux, Chronic Constipation, Irritable Bowel Musculoskeletal: Yes Arthritis, Fibromyalgia, Back Injury, Chronic Back Pain, Fractures, Spasms Endocrine: Yes Diabetes, Insulin dep, Hypothyroidsim HEENT: No Hearing Impairment: Hard of Hearing Cancer: Yes Ovarian Psychosocial: Yes ADD/ADHD, Bipolar, Schizophrenia Integumentary: No Blood Disorders: No Family Medical History No Pertinent Family Hx Physical Exam Vital Signs Vital Signs - First Documented 03/02/22 22:18 Temp 36.0 Pulse 88 Resp 24 B/P (MAP) 99/48 (65) Pulse Ox 100 O2 Delivery Nasal Cannula O2 Flow Rate 3.00 Capillary Refill : Height, Weight, BMI Height: '" Weight: 275lbs. oz. 124.203715au; 44.00 BMI Method:Stated General Appearance: WD/WN, mild distress HEENT: PERRL/EOMI Neck: non-tender, full range of motion, supple, normal inspection Cardiovascular: regular rate, rhythm Respiratory: lungs clear Back: no vertebral tenderness Extremities: normal range of motion Psychiatric: alert, oriented x 3 Crainal Nerves: normal hearing, normal speech, PERRL Coordination/Gait: normal gait Motor/Sensory: no motor deficit, no sensory deficit Skin: normal color, warm/dry Progress/Results/Core Measures Results/Orders My Orders Orders - SUELLEN RICO MD Droperidol Inj (Ed Only) (Inapsine Inj ( (03/02/22 22:45) Diphenhydramine Injection (Benadryl Inje (03/02/22 22:45) Dexamethasone Injection (Decadron Inje (03/02/22 22:45) Ketorolac Injection (Toradol Injection) (03/02/22 22:45) Ondansetron Oral Dissolve Tab (Zofran (03/02/22 22:44) Medications Given in ED Current Medications Medications Dose Ordered Sig/Kurtis Route Start Time Stop Time Status Last Admin Dose Admin Dexamethasone Sodium Phosphate 5 mg ONCE ONCE IM 03/02/22 22:45 03/02/22 22:46 DC 03/02/22 22:53 5 MG Diphenhydramine HCl 25 mg ONCE ONCE IM 03/02/22 22:45 03/02/22 22:46 DC 03/02/22 22:54 25 MG Droperidol 1.25 mg ONCE ONCE IM 03/02/22 22:45 03/02/22 22:46 DC 03/02/22 22:54 1.25 MG Ketorolac Tromethamine 15 mg ONCE ONCE IM 03/02/22 22:45 03/02/22 22:46 DC 03/02/22 22:53 15 MG Vital Signs/I&O 03/02/22 22:18 Temp 36.0 Pulse 88 Resp 24 B/P (MAP) 99/48 (65) Pulse Ox 100 O2 Delivery Nasal Cannula O2 Flow Rate 3.00 Progress Progress Note : Progress Note 1. MIGRAINE : - Droperidol 1.25mg im/ Toradol 15mg im/ Benadryl 25 mg im/ Dexa 5mg im/ Zofran 4mg ODT STAT in ER - Improved with medication. Was 9/10, and after meds, improved to 4/10 - Advised to follow up with PCP for neurology referral for migraine management within 7 days. - Adequate hydration advised, including good sleep hygiene. Smoking cessation advised. -The patient was seen in the ED, and treated appropriately to presentation at a specific point in time. Patient is informed that there is a possibility that disease and illness can evolve and change in acuity rapidly or slowly after patient is discharged from the ER. Precautionary advice given to the patient for immediate return to ER if symptoms worsen or do not resolve, and to seek emergency care sooner rather than later. Pt also advised on the importance of PCP follow up and compliance with management and follow up plan with PCP and/or specialist, as this is part of the management plan. Pt verbally expressed understanding. Departure Impression Primary Impression: Migraine Qualified Codes: G43.119 - Migraine with aura, intractable, without status migrainosus Disposition: HOME, SELF-CARE Condition: Improved Departure-Patient Inst. Referrals: ANA HASSAN APRN (PCP) Primary Care Physician [facility] (Family) Primary Care Physician Patient Instructions: Migraines (DC), Home Headache Remedies Add. Discharge Instructions: - Advised to follow up with PCP for neurology referral for migraine management within 7 days. - Adequate hydration advised, including good sleep hygiene. Smoking cessation advised. All discharge instructions reviewed with patient and/or family. Voiced understanding. SUELLEN RICO MD Mar 02, 2022 22:38
[2022-03-02] MEDS ORDERED: ONDANSETRON 4 MG (ZOFRAN) ORAL DISSOLVE TAB PO STA (22:44)
[2022-03-02] MEDS ORDERED: KETOROLAC 30 MG/ML VIAL IM ONE (22:45)
[2022-03-02] MEDS ORDERED: DROPERIDOL 5 MG/2 ML (INAPSINE) ED ONLY! IM ONE (22:45)
[2022-03-02] MEDS ORDERED: diphenhydrAMINE 50 MG/ML INJ (BENADRYL) IM ONE (22:45)
[2022-03-02 23:33] VITALS: BP 120/77
== END 2022-03-02 23:33 | disposition home or self-care (01) ==
LOC: EDUNIT# 22:16 → ER FS 22:17
DX: G43.909 Migraine, unspecified, not intractable, without status migrainosus (principal); E11.40 Type 2 diabetes mellitus with diabetic neuropathy, unspecified; F17.210 Nicotine dependence, cigarettes, uncomplicated; Z79.4 Long term (current) use of insulin
CPT/HCPCS: 99284

== ENCOUNTER 2022-03-08 17:08 | Emergency (ER) | payer MEDICAID ==
[~2022-03-08] VITALS: Ht 157.4 cm; Wt 106.0 kg
--- NOTE | 2022-03-08 17:25 | ED Headache ---
General Chief Complaint: Head/Cervical Problems Stated Complaint: HEADACHE Nursing Triage Note: Patient presents to the ED with c/o right sided headache. States pain began 1 hour prior to arrival. Reports that if she moves she becomes nauseated. Source: patient Exam Limitations: no limitations History of Present Illness Date Seen by Provider: Mar 08, 2022 Time Seen by Provider: 17:00 Initial Comments Patient is a 51-year-old female who presents with right-sided headache which began 1 hour prior to ED arrival. Patient reports feeling weird and becoming nauseated. She has history of headaches, and seizure disorder. She is compliant with medication and denies shaking, tremors, loss of extremity use, visual changes or other seizure-like symptoms. No medications were taken prior to ED arrival. Accu-Chek was obtained by EMS which was 98. Patient has not had recent illness. She wears 3 L at baseline and is compliant with her oxygen. She states that family members were painting in in her home around the time symptoms began, no other symptoms or complaint Timing/Duration: 1 hour Severity/Quality: mild Location: other Prior Headaches/Recent Trauma: other Associated Symptoms: other Allergies and Home Medications Allergies Coded Allergies: doxycycline (Unverified Allergy, Mild, nauseated, 08/01/09) spinach (Unverified Allergy, Mild, 08/01/09) alprazolam (Verified Allergy, Unknown, 07/18/19) diazepam (Verified Allergy, Unknown, 07/18/19) sumatriptan (Verified Allergy, Unknown, 07/18/19) Patient Home Medication List Home Medication List Reviewed: Yes Albuterol Sulfate (Ventolin Hfa) 1 Puff Puff, 2 PUFF INH Q4H PRN for COUGH, (Reported) Entered as Reported by: PEREZ HENDERSON on 03/29/20 1200 Albuterol/Ipratropium (Combivent Respimat Inhal [place]) 4 Gm Aero, 2 PUFF IH TID Prescribed by: EMILY DOMÍNGUEZ on 10/03/201913 Furosemide (Furosemide) 40 Mg Tablet, 40 MG PO BID, (Reported) Entered as Reported by: PEREZ HENDERSON on 03/29/20 1200 Gabapentin (Gabapentin) 600 Mg Tablet, 1,200 MG PO TID, (Reported) Entered as Reported by: PEREZ HENDERSON on 03/29/20 1200 Glimepiride (Glimepiride) 2 Mg Tablet, 2 MG PO BID, (Reported) Entered as Reported by: PEREZ HENDERSON on 03/29/201199 Haloperidol (Haloperidol) 10 Mg Tablet, 10 MG PO TID, (Reported) Entered as Reported by: PEREZ HENDERSON on 03/29/201199 Lurasidone HCl (Latuda) 120 Mg Tablet, 120 MG PO 1800, (Reported) Entered as Reported by: PEREZ HENDERSON on 03/29/201199 Lurasidone HCl (Latuda) 40 Mg Tablet, 40 MG PO 1800, (Reported) Entered as Reported by: PEREZ HENDERSON on 03/29/201199 Methocarbamol (Methocarbamol) 500 Mg Tablet, 500 MG PO Q8H Prescribed by: SUELLEN RICO MD on 09/25/212326 Montelukast Sodium (Montelukast Sodium) 10 Mg Tablet, 10 MG PO DAILY, (Reported) Entered as Reported by: PEREZ HENDERSON on 03/29/201199 Phenytoin Sodium Extended (Phenytoin Sodium Extended) 200 Mg Capsule, 200 MG PO BID, (Reported) Entered as Reported by: PEREZ HENDERSON on 03/29/201199 Quetiapine Fumarate (Quetiapine Fumarate) 100 Mg Tablet, 300 MG PO DAILY, (Reported) Entered as Reported by: PEREZ HENDERSON on 03/29/201199 Rivaroxaban (Xarelto) 20 Mg Tablet, 20 MG PO DAILY, (Reported) Entered as Reported by: PEREZ HENDERSON on 03/29/201199 Topiramate (Topiramate) 100 Mg Tablet, 200 MG PO BID, (Reported) Entered as Reported by: PEREZ HENDERSON on 03/29/201199 Trazodone HCl (Trazodone HCl) 100 Mg Tablet, 200 MG PO HS, (Reported) Entered as Reported by: PEREZ HENDERSON on 03/29/201199 Venlafaxine HCl (Venlafaxine HCl ER) 150 Mg Cap.er.24h, 300 MG PO DAILY, (Reported) Entered as Reported by: PEREZ HENDERSON on 03/29/201199 Review of Systems Review of Systems Constitutional: see HPI Eyes: See HPI Ears, Nose, Mouth, Throat: see HPI Respiratory: see HPI Cardiovascular: see HPI Gastrointestinal: see HPI Genitourinary: see HPI Musculoskeletal: see HPI Skin: see HPI Psychiatric/Neurological: See HPI All Other Systems Reviewed Negative Unless Noted: No Past Dxvsccv-Wqebvn-Snjfmb Hx Patient Social History Tobacco Use?: Yes Tobacco type used: Cigarettes Smoking Status: Current Everyday Smoker Substance use?: Yes Substance type: Methamphetamine Additional substance use comme: Reports last use was 1 month ago Substance frequency: Several times a month Alcohol Use?: No Pt feels they are or have been: No Immunizations Up To Date First/Initial COVID19 Vaccinat: 2020 Second COVID19 Vaccination Magdaleno: 2020 Third COVID19 Vaccination Date: 2020 Seasonal Allergies Seasonal Allergies: No Past Medical History Surgery/Hospitalization HX: Mood disorder; COPD; Neuropathy; Frequent falls; HTN; Fibromyalgia; O2 dependent Surgeries: Yes (HIP, suprapubic catheter, Dental) Appendectomy, Gallbladder, Hysterectomy, Orthopedic Respiratory: Yes Asthma, Pneumonia, Chronic Bronchitis, Pulmonary Embolism, COPD, Emphysema Cardiac: Yes (CHF) Neurological: Yes Neuropathy 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 Disorders: No 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 Sexually Transmitted Disease: No HIV/AIDS: No Genitourinary: Yes Kidney Stones, Neurogenic Bladder, UTI-Chronic Gastrointestinal: Yes Abdominal Hernia, Gastroesophageal Reflux, Chronic Constipation, Irritable Bowel Musculoskeletal: Yes Arthritis, Fibromyalgia, Back Injury, Chronic Back Pain, Fractures, Spasms Endocrine: Yes Diabetes, Insulin dep, Hypothyroidsim HEENT: No Hearing Impairment: Hard of Hearing Cancer: Yes Ovarian Psychosocial: Yes ADD/ADHD, Bipolar, Schizophrenia Integumentary: No Blood Disorders: No Family Medical History No Pertinent Family Hx Physical Exam Vital Signs Vital Signs - First Documented 03/08/22 17:13 Temp 36.4 Pulse 91 Resp 14 B/P (MAP) 117/77 (90) Pulse Ox 100 O2 Delivery Nasal Cannula O2 Flow Rate 3.00 Capillary Refill : Less Than 3 Seconds Height, Weight, BMI Height: '" Weight: 275lbs. oz. [id number]; 42.00 BMI Method:Stated General Appearance: WD/WN, no apparent distress Neck: non-tender, full range of motion, supple Cardiovascular: normal peripheral pulses, regular rate, rhythm Respiratory: lungs clear Gastrointestinal: non tender, soft Extremities: non-tender Psychiatric: alert, oriented x 3 Crainal Nerves: normal hearing, normal speech, PERRL Coordination/Gait: normal finger to nose Motor/Sensory: no motor deficit, no sensory deficit Progress/Results/Core Measures Results/Orders My Orders Orders - EMILY DOMÍNGUEZ DO Prochlorperazine Tablet (Compazine Table (03/08/22 17:30) Acetaminophen Tablet (Tylenol Tablet) (03/08/22 17:30) Vital Signs/I&O 03/08/22 17:13 Temp 36.4 Pulse 91 Resp 14 B/P (MAP) 117/77 (90) Pulse Ox 100 O2 Delivery Nasal Cannula O2 Flow Rate 3.00 Blood Pressure Mean: 90 Departure Communication (Admissions) Patient with likely headache patient with headache and orientated pendulums. Neurologic exam unremarkable. Tylenol and Compazine given. Recommendations are avoiding pain fumes, rest and PCP follow-up as needed. Return precautions reviewed. Impression Primary Impression: Aura Additional Impression: Headache Disposition: 01 HOME, SELF-CARE Condition: Stable Departure-Patient Inst. Decision time for Depature: 17:53 Referrals: ANA HASSAN APRN (PCP) Primary Care Physician [facility] (Family) Primary Care Physician Patient Instructions: Headache, Adult ED Add. Discharge Instructions: You were evaluated in the emergency department for headache with aura. The cause of your symptoms has not been determined but may triggered by fumes in your home. Please avoid going to the home until it no longer is smells of paint, as this can make your symptoms worse. Take Benadryl and Excedrin Migraine OTC as needed for headache. Follow-up with your PCP for reevaluation as needed. Return to the ED if new or concerning symptoms. All discharge instructions reviewed with patient and/or family. Voiced understanding. EMILY DOMÍNGUEZ DO Mar 08, 2022 17:25
[2022-03-08] MEDS ORDERED: ACETAMINOPHEN 500 MG TAB (TYLENOL) PO ONE (17:30)
[2022-03-08] MEDS ORDERED: PROCHLORPERAZINE 10 MG TAB (COMPAZINE) PO ONE (17:30)
[2022-03-08 17:56] VITALS: BP 117/77
== END 2022-03-08 17:56 | disposition home or self-care (01) ==
LOC: EDUNIT# 17:08 → ER FS 17:09
DX: R51.9 Headache, unspecified (principal); E11.40 Type 2 diabetes mellitus with diabetic neuropathy, unspecified; J43.9 Emphysema, unspecified; F17.210 Nicotine dependence, cigarettes, uncomplicated; Z99.81 Dependence on supplemental oxygen; Z79.4 Long term (current) use of insulin
CPT/HCPCS: 99283

== ENCOUNTER 2022-03-17 02:39 | Emergency (ER) | payer MEDICAID ==
[~2022-03-17] VITALS: Ht 157.4 cm; Wt 106.0 kg
[2022-03-17] MEDS ORDERED: diphenhydrAMINE 50 MG/ML INJ (BENADRYL) IM STA (03:23)
[2022-03-17] MEDS ORDERED: PRD20T PO (03:30)
--- NOTE | 2022-03-17 03:30 | ED Integumentary General ---
General Chief Complaint: Skin/Wound Problems Stated Complaint: RASH,ITCHINESS Source: patient, old records History of Present Illness Date Seen by Provider: Mar 17, 2022 Time Seen by Provider: 03:16 Initial Comments 51-year-old female presenting with complaints of rash and itching. She woke up overnight with rash and itching. She has had previous allergic reactions when she had to get shot of steroids and Benadryl. She is not having any increased difficulty breathing or swallowing. She uses home oxygen at 3 L/min chronically. She does have a history of COPD as well as prior meth amphetamine abuse. She denies any new medications, clothes, soaps, detergents, perfumes, bedding. She states the only thing new or different right now is there are painters in her house painting. She denies any allergy to latex that she is aware of. Timing/Duration: this morning Severity: severe Location: generalized Possible Cause: no cause identified Modifying Factors: worse with scratching Associated Symptoms: No blisters, No change in skin texture, No edema, No fever, No flushing, No headache, No hives, No jaundice, No malaise, No nasal congestion, No numbness, No pallor, No paresthesia, No petechiae; rash; No sore throat, No swelling/mass/lumps, No tingling Allergies and Home Medications Allergies Coded Allergies: doxycycline (Unverified Allergy, Mild, nauseated, 08/01/09) spinach (Unverified Allergy, Mild, 08/01/09) alprazolam (Verified Allergy, Unknown, 07/18/19) diazepam (Verified Allergy, Unknown, 07/18/19) sumatriptan (Verified Allergy, Unknown, 07/18/19) Patient Home Medication List Home Medication List Reviewed: Yes Albuterol Sulfate (Ventolin Hfa) 1 Puff Puff, 2 PUFF INH Q4H PRN for COUGH, (Reported) Entered as Reported by: PEREZ HENDERSON on 03/29/20 1200 Albuterol/Ipratropium (Combivent Respimat Inhal [place]) 4 Gm Aero, 2 PUFF IH TID Prescribed by: EMILY DOMÍNGUEZ on 10/03/201913 Furosemide (Furosemide) 40 Mg Tablet, 40 MG PO BID, (Reported) Entered as Reported by: PEREZ HENDERSON on 03/29/20 1200 Gabapentin (Gabapentin) 600 Mg Tablet, 1,200 MG PO TID, (Reported) Entered as Reported by: PEREZ HENDERSON on 03/29/201199 Glimepiride (Glimepiride) 2 Mg Tablet, 2 MG PO BID, (Reported) Entered as Reported by: PEREZ HENDERSON on 03/29/201199 Haloperidol (Haloperidol) 10 Mg Tablet, 10 MG PO TID, (Reported) Entered as Reported by: PEREZ HENDERSON on 03/29/201199 Lurasidone HCl (Latuda) 120 Mg Tablet, 120 MG PO 1800, (Reported) Entered as Reported by: PEREZ HENDERSON on 03/29/201199 Lurasidone HCl (Latuda) 40 Mg Tablet, 40 MG PO 1800, (Reported) Entered as Reported by: PEREZ HENDERSON on 03/29/201199 Methocarbamol (Methocarbamol) 500 Mg Tablet, 500 MG PO Q8H Prescribed by: SUELLEN RICO MD on 09/25/21 796 Montelukast Sodium (Montelukast Sodium) 10 Mg Tablet, 10 MG PO DAILY, (Reported) Entered as Reported by: PEREZ HENDERSON on 03/29/201199 Phenytoin Sodium Extended (Phenytoin Sodium Extended) 200 Mg Capsule, 200 MG PO BID, (Reported) Entered as Reported by: PEREZ HENDERSON on 03/29/201199 Prednisone (Prednisone) 20 Mg Tab, 40 MG PO DAILY Prescribed by: TASH ALARCON on 03/17/22 0330 Quetiapine Fumarate (Quetiapine Fumarate) 100 Mg Tablet, 300 MG PO DAILY, (Reported) Entered as Reported by: PEREZ HENDERSON on 03/29/201199 Rivaroxaban (Xarelto) 20 Mg Tablet, 20 MG PO DAILY, (Reported) Entered as Reported by: PEREZ HENDERSON on 03/29/201199 Topiramate (Topiramate) 100 Mg Tablet, 200 MG PO BID, (Reported) Entered as Reported by: PEREZ HENDERSON on 03/29/201199 Trazodone HCl (Trazodone HCl) 100 Mg Tablet, 200 MG PO HS, (Reported) Entered as Reported by: PEREZ HENDERSON on 03/29/201199 Venlafaxine HCl (Venlafaxine HCl ER) 150 Mg Cap.er.24h, 300 MG PO DAILY, (Reported) Entered as Reported by: PEREZ HENDERSON on 03/29/20 1200 Review of Systems Review of Systems Constitutional: No chills, No fever EENTM: no symptoms reported Respiratory: see HPI Cardiovascular: no symptoms reported Gastrointestinal: no symptoms reported Genitourinary: no symptoms reported Musculoskeletal: no symptoms reported Skin: see HPI Psychiatric/Neurological: Anxiety Past Ycsruua-Mqtwtx-Zhexds Hx Immunizations Up To Date First/Initial COVID19 Vaccinat: 2020 Second COVID19 Vaccination Magdaleno: 2020 Third COVID19 Vaccination Date: 2020 Seasonal Allergies Seasonal Allergies: No Past Medical History Surgery/Hospitalization HX: Mood disorder; COPD; Neuropathy; Frequent falls; HTN; Fibromyalgia; O2 dependent Surgeries: Yes (HIP, suprapubic catheter, Dental) Appendectomy, Gallbladder, Hysterectomy, Orthopedic Respiratory: Yes Asthma, Pneumonia, Chronic Bronchitis, Pulmonary Embolism, COPD, Emphysema Cardiac: Yes (CHF) Neurological: Yes Neuropathy 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 Disorders: No 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 Sexually Transmitted Disease: No HIV/AIDS: No Genitourinary: Yes Kidney Stones, Neurogenic Bladder, UTI-Chronic Gastrointestinal: Yes Abdominal Hernia, Gastroesophageal Reflux, Chronic Constipation, Irritable Bowel Musculoskeletal: Yes Arthritis, Fibromyalgia, Back Injury, Chronic Back Pain, Fractures, Spasms Endocrine: Yes Diabetes, Insulin dep, Hypothyroidsim HEENT: No Hearing Impairment: Hard of Hearing Cancer: Yes Ovarian Psychosocial: Yes ADD/ADHD, Bipolar, Schizophrenia Integumentary: No Blood Disorders: No Family Medical History No Pertinent Family Hx Physical Exam Vital Signs Capillary Refill : General Appearance: mild distress, obese HEENT: PERRL/EOMI Neck: non-tender, full range of motion, supple, normal inspection Cardiovascular: normal peripheral pulses, regular rate, rhythm Respiratory: chest non-tender, lungs clear, normal breath sounds, no respiratory distress, no accessory muscle use Gastrointestinal: normal bowel sounds, soft, no pulsatile mass Neurologic/Psychiatric: alert, oriented x 3 Skin: warm/dry, rash (Erythematous papular rash on extremities with excoriation from her scratching) Progress/Results/Core Measures Results/Orders My Orders Orders - TASH ALARCON MD Dexamethasone Injection (Decadron Inje (03/17/22 03:23) Diphenhydramine Injection (Benadryl Inje (03/17/22 03:23) Progress Progress Note : Progress Note Hemodynamically she is stable there is no evidence of stridor or anaphylaxis. Unable to identify the source of her rash and itching. Will administer a dose of dexamethasone 10 mg IM along with Benadryl 50 mg IM to help with itching and inflammation. Continue with the Benadryl by mouth. Prescribe a couple of days of additional steroid by mouth if needed. Counseled to watch for dietary intake and manage her sugars as the steroid will increase her glucose over the next few days. Follow-up through the clinic for continued concerns. Return for worsening symptoms or difficulty breathing Departure Impression Primary Impression: Allergic dermatitis Additional Impression: Itching Disposition: HOME, SELF-CARE Condition: Stable Departure-Patient Inst. Decision time for Depature: 03:28 Referrals: ANA HASSAN APRN (PCP) Primary Care Physician [facility] (Family) Primary Care Physician Patient Instructions: Allergic Reaction ED, Skin Rash ED, Itchy Skin Add. Discharge Instructions: Continue with Benadryl 25 to 50 mg every 6 hours as needed for itching and rash. If your symptoms or not improved by Sunday morning you could start taking the oral steroids that were prescribed at [facility] Check back with clinic for continued concerns. All discharge instructions reviewed with patient and/or family. Voiced understanding. Scripts Prednisone (Prednisone) 20 Mg Tab 40 MG PO DAILY for allergic dermatitis for 3 Days, #6 TAB 0 Refills Prov: TASH ALARCON MD 03/17/22 TASH ALARCON MD Mar 17, 2022 03:30
[2022-03-17 03:40] VITALS: BP 127/95
== END 2022-03-17 03:40 | disposition home or self-care (01) ==
LOC: EDUNIT# 02:39 → ER FS 02:41
DX: L23.9 Allergic contact dermatitis, unspecified cause (principal); E11.40 Type 2 diabetes mellitus with diabetic neuropathy, unspecified; Z79.4 Long term (current) use of insulin
CPT/HCPCS: 99284

== ENCOUNTER 2022-03-17 21:47 | Emergency (ER) | payer MEDICAID ==
[~2022-03-17] VITALS: Ht 157.4 cm; Wt 105.2 kg
[2022-03-17 21:53] VITALS: BP 132/98
[2022-03-17] MEDS ORDERED: LORazepam 0.5 MG (ATIVAN) TABLET PO STA (21:57)
[2022-03-17] MEDS ORDERED: OLANZapine 5 MG ODT (ZyPREXA ZYDIS) PO ONE (22:00)
--- NOTE | 2022-03-17 22:03 | ED Integumentary General ---
General Chief Complaint: Skin/Wound Problems Stated Complaint: RASH Source: patient Exam Limitations: no limitations History of Present Illness Date Seen by Provider: Mar 17, 2022 Time Seen by Provider: 21:50 Initial Comments 51-year-old female with methamphetamine use disorder coming in due to skin issue. This is her third physician she has seen in less than 24 hours. She was in this ER earlier this morning, and went to an outpatient clinic later. She has been given Benadryl, and had an IM injection of Benadryl as well at the clinic. She is also on prednisone. She states the itching is too bad and that is why she wanted to be seen again. Denies any fever, chest pain, shortness of breath, abdominal pain, nausea, vomiting, diarrhea, weakness, numbness, or any other concerns Allergies and Home Medications Allergies Coded Allergies: doxycycline (Unverified Allergy, Mild, nauseated, 08/01/09) spinach (Unverified Allergy, Mild, 08/01/09) alprazolam (Verified Allergy, Unknown, 07/18/19) diazepam (Verified Allergy, Unknown, 07/18/19) sumatriptan (Verified Allergy, Unknown, 07/18/19) Patient Home Medication List Home Medication List Reviewed: Yes Albuterol Sulfate (Ventolin Hfa) 1 Puff Puff, 2 PUFF INH Q4H PRN for COUGH, (Reported) Entered as Reported by: PEREZ HENDERSON on 03/29/201199 Albuterol/Ipratropium (Combivent Respimat Inhal [place]) 4 Gm Aero, 2 PUFF IH TID Prescribed by: EMILY DOMÍNGUEZ on 10/03/201913 Furosemide (Furosemide) 40 Mg Tablet, 40 MG PO BID, (Reported) Entered as Reported by: PEREZ HENDERSON on 03/29/20 1200 Gabapentin (Gabapentin) 600 Mg Tablet, 1,200 MG PO TID, (Reported) Entered as Reported by: PEREZ HENDERSON on 03/29/20 1200 Glimepiride (Glimepiride) 2 Mg Tablet, 2 MG PO BID, (Reported) Entered as Reported by: PEREZ HENDERSON on 03/29/20 1200 Haloperidol (Haloperidol) 10 Mg Tablet, 10 MG PO TID, (Reported) Entered as Reported by: PEREZ HENDERSON on 03/29/20 1200 Lurasidone HCl (Latuda) 120 Mg Tablet, 120 MG PO 1800, (Reported) Entered as Reported by: PEREZ HENDERSON on 03/29/201199 Lurasidone HCl (Latuda) 40 Mg Tablet, 40 MG PO 1800, (Reported) Entered as Reported by: PEREZ HENDERSON on 03/29/201199 Methocarbamol (Methocarbamol) 500 Mg Tablet, 500 MG PO Q8H Prescribed by: SUELLEN RICO MD on 09/25/212326 Montelukast Sodium (Montelukast Sodium) 10 Mg Tablet, 10 MG PO DAILY, (Reported) Entered as Reported by: PEREZ HENDERSON on 03/29/201199 Phenytoin Sodium Extended (Phenytoin Sodium Extended) 200 Mg Capsule, 200 MG PO BID, (Reported) Entered as Reported by: PEREZ HENDERSON on 03/29/201199 Prednisone (Prednisone) 20 Mg Tab, 40 MG PO DAILY Prescribed by: TASH ALARCON on 03/17/22 0330 Quetiapine Fumarate (Quetiapine Fumarate) 100 Mg Tablet, 300 MG PO DAILY, (Reported) Entered as Reported by: PEREZ HENDERSON on 03/29/201199 Rivaroxaban (Xarelto) 20 Mg Tablet, 20 MG PO DAILY, (Reported) Entered as Reported by: PEREZ HENDERSON on 03/29/201199 Topiramate (Topiramate) 100 Mg Tablet, 200 MG PO BID, (Reported) Entered as Reported by: PEREZ HENDERSON on 03/29/201199 Trazodone HCl (Trazodone HCl) 100 Mg Tablet, 200 MG PO HS, (Reported) Entered as Reported by: PEREZ HENDERSON on 03/29/201199 Venlafaxine HCl (Venlafaxine HCl ER) 150 Mg Cap.er.24h, 300 MG PO DAILY, (Reported) Entered as Reported by: PEREZ HENDERSON on 03/29/201199 Review of Systems Review of Systems Constitutional: No fever EENTM: no symptoms reported Respiratory: no symptoms reported Cardiovascular: no symptoms reported Gastrointestinal: no symptoms reported Genitourinary: no symptoms reported Musculoskeletal: no symptoms reported Skin: see HPI Psychiatric/Neurological: No Symptoms Reported Endocrine: No Symptoms Reported Hematologic/Lymphatic: No Symptoms Reported All Other Systems Reviewed Negative Unless Noted: Yes Past Tmewjbw-Jkbrre-Hfibtg Hx Patient Social History Tobacco Use?: Yes Tobacco type used: Cigarettes Smoking Status: Current Everyday Smoker Substance use?: Yes Alcohol Use?: No Pt feels they are or have been: No Immunizations Up To Date First/Initial COVID19 Vaccinat: 2020 Second COVID19 Vaccination Magdaleno: 2020 Third COVID19 Vaccination Date: 2020 Seasonal Allergies Seasonal Allergies: No Past Medical History Surgery/Hospitalization HX: Mood disorder; COPD; Neuropathy; Frequent falls; HTN; Fibromyalgia; O2 dependent Surgeries: Yes (HIP, suprapubic catheter, Dental) Appendectomy, Gallbladder, Hysterectomy, Orthopedic Respiratory: Yes Asthma, Pneumonia, Chronic Bronchitis, Pulmonary Embolism, COPD, Emphysema Cardiac: Yes (CHF) Neurological: Yes Neuropathy 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 Disorders: No 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 Transmitted Disease: No HIV/AIDS: No Genitourinary: Yes Kidney Stones, Neurogenic Bladder, UTI-Chronic Gastrointestinal: Yes Abdominal Hernia, Gastroesophageal Reflux, Chronic Constipation, Irritable Bowel Musculoskeletal: Yes Arthritis, Fibromyalgia, Back Injury, Chronic Back Pain, Fractures, Spasms Endocrine: Yes Diabetes, Insulin dep, Hypothyroidsim HEENT: No Hearing Impairment: Hard of Hearing Cancer: Yes Ovarian Psychosocial: Yes ADD/ADHD, Bipolar, Schizophrenia Integumentary: No Blood Disorders: No Family Medical History No Pertinent Family Hx Physical Exam Vital Signs Capillary Refill : General Appearance: WD/WN, no apparent distress HEENT: PERRL/EOMI, normal ENT inspection, pharynx normal Neck: non-tender, full range of motion, supple, normal inspection Cardiovascular: regular rate, rhythm, no edema, no murmur Respiratory: chest non-tender, lungs clear, normal breath sounds, no respiratory distress, no accessory muscle use Gastrointestinal: normal bowel sounds, non tender, soft; No distended, No guarding, No rebound Back: normal inspection, no CVA tenderness Extremities: normal range of motion, non-tender, normal inspection, no pedal edema, no calf tenderness, normal capillary refill Neurologic/Psychiatric: no motor/sensory deficits, alert, normal mood/affect Skin: normal color, warm/dry, rash (Multiple areas of excoriations of skin where she has been picking at it mostly along her chest and arms. There is no picking along her back or rash along her legs.) Lymphatic: no adenopathy Progress/Results/Core Measures Results/Orders My Orders Orders - SERINA YOUNGBLOOD MD Lorazepam Tablet (Ativan Tablet) (03/17/22 21:57) Olanzapine Orally Dissolve Tab (Zyprexa (03/17/22 22:00) Progress Progress Note : Progress Note 51-year-old female with above history coming in due to itching. ABCs were intact and vitals were stable on presentation. It looks like excoriations that are self caused, and with her significant meth history, it does appear like picking associated with that. We will give her some medications to counteract methamphetamine symptoms and she can go home afterwards. Departure Impression Primary Impression: Pruritus Disposition: HOME, SELF-CARE Condition: Stable Departure-Patient Inst. Decision time for Depature: 22:02 Referrals: ANA HASSAN APRN (PCP) Primary Care Physician [facility] (Family) Primary Care Physician Patient Instructions: Itchy Skin Add. Discharge Instructions: Do not itch or pick at your skin. Try to buy some petroleum jelly to put on it as a barrier. Continue to take the Benadryl as needed for itchy skin. SERINA YOUNGBLOOD MD Mar 17, 2022 22:03
== END 2022-03-17 22:15 | disposition home or self-care (01) ==
LOC: EDUNIT# 21:47 → ER FS 21:50
DX: L29.9 Pruritus, unspecified (principal); E11.40 Type 2 diabetes mellitus with diabetic neuropathy, unspecified; J43.9 Emphysema, unspecified; F17.210 Nicotine dependence, cigarettes, uncomplicated; Z99.81 Dependence on supplemental oxygen; Z28.310 Unvaccinated for COVID-19; Z79.52 Long term (current) use of systemic steroids; Z79.4 Long term (current) use of insulin
CPT/HCPCS: 99283

== ENCOUNTER 2022-03-27 20:51 | Emergency (ER) | payer MEDICAID ==
[2022-03-27] MEDS ORDERED: RT-ALBUTEROL/IPRATROPIUM 3 ML (DUONEB) VIAL INH ONE (21:00)
[2022-03-27] MEDS ORDERED: OLANZapine 5 MG ODT (ZyPREXA ZYDIS) PO ONE (21:00)
[2022-03-27] MEDS ORDERED: diphenhydrAMINE 50 MG/ML INJ (BENADRYL) IM ONE (21:00)
[2022-03-27] MEDS ORDERED: HYDR-700 PO (21:05)
--- NOTE | 2022-03-27 21:05 | ED General ---
General Chief Complaint: General Problems/Pain Source of Information: Patient Exam Limitations: No Limitations History of Present Illness Date Seen by Provider: Mar 27, 2022 Time Seen by Provider: 20:54 Initial Comments 51-year-old female coming in due to itchy skin. Has been going on for some time now. Denies any fever, or changes to her history since the last time she was seen. Takes Benadryl intermittently which does help. Is otherwise denying any other acute complaints. Allergies and Home Medications Allergies Coded Allergies: doxycycline (Unverified Allergy, Mild, nauseated, 08/01/09) spinach (Unverified Allergy, Mild, 08/01/09) alprazolam (Verified Allergy, Unknown, 07/18/19) diazepam (Verified Allergy, Unknown, 07/18/19) sumatriptan (Verified Allergy, Unknown, 07/18/19) Patient Home Medication List Home Medication List Reviewed: Yes Albuterol Sulfate (Ventolin Hfa) 1 Puff Puff, 2 PUFF INH Q4H PRN for COUGH, (Reported) Entered as Reported by: PEREZ HENDERSON on 03/29/20 1200 Albuterol/Ipratropium (Combivent Respimat Inhal [place]) 4 Gm Aero, 2 PUFF IH TID Prescribed by: EMILY DOMÍNGUEZ on 10/03/201913 Furosemide (Furosemide) 40 Mg Tablet, 40 MG PO BID, (Reported) Entered as Reported by: PEREZ HENDERSON on 03/29/20 1200 Gabapentin (Gabapentin) 600 Mg Tablet, 1,200 MG PO TID, (Reported) Entered as Reported by: PEREZ HENDERSON on 03/29/20 1200 Glimepiride (Glimepiride) 2 Mg Tablet, 2 MG PO BID, (Reported) Entered as Reported by: PEREZ HENDERSON on 03/29/20 1200 Haloperidol (Haloperidol) 10 Mg Tablet, 10 MG PO TID, (Reported) Entered as Reported by: PEREZ HENDERSON on 03/29/20 1200 Lurasidone HCl (Latuda) 120 Mg Tablet, 120 MG PO 1800, (Reported) Entered as Reported by: PEREZ HENDERSON on 03/29/20 1200 Lurasidone HCl (Latuda) 40 Mg Tablet, 40 MG PO 1800, (Reported) Entered as Reported by: PEREZ HENDERSON on 03/29/20 1200 Methocarbamol (Methocarbamol) 500 Mg Tablet, 500 MG PO Q8H Prescribed by: SUELLEN RICO MD on 09/25/212326 Montelukast Sodium (Montelukast Sodium) 10 Mg Tablet, 10 MG PO DAILY, (Reported) Entered as Reported by: PEREZ HENDERSON on 03/29/20 1200 Phenytoin Sodium Extended (Phenytoin Sodium Extended) 200 Mg Capsule, 200 MG PO BID, (Reported) Entered as Reported by: PEREZ HENDERSON on 03/29/20 1200 Prednisone (Prednisone) 20 Mg Tab, 40 MG PO DAILY Prescribed by: TASH ALARCON on 03/17/22 0330 Quetiapine Fumarate (Quetiapine Fumarate) 100 Mg Tablet, 300 MG PO DAILY, (Reported) Entered as Reported by: PEREZ HENDERSON on 03/29/20 1200 Rivaroxaban (Xarelto) 20 Mg Tablet, 20 MG PO DAILY, (Reported) Entered as Reported by: PEREZ HENDERSON on 03/29/20 1200 Topiramate (Topiramate) 100 Mg Tablet, 200 MG PO BID, (Reported) Entered as Reported by: PEREZ HENDERSON on 03/29/20 1200 Trazodone HCl (Trazodone HCl) 100 Mg Tablet, 200 MG PO HS, (Reported) Entered as Reported by: PEREZ HENDERSON on 03/29/20 1200 Venlafaxine HCl (Venlafaxine HCl ER) 150 Mg Cap.er.24h, 300 MG PO DAILY, (Reported) Entered as Reported by: PEREZ HENDERSON on 03/29/20 1200 Review of Systems Review of Systems Constitutional: No fever EENTM: no symptoms reported Respiratory: no symptoms reported Cardiovascular: no symptoms reported Gastrointestinal: no symptoms reported Musculoskeletal: no symptoms reported Skin: see HPI Psychiatric/Neurological: No Symptoms Reported Hematologic/Lymphatic: No Symptoms Reported Immunological/Allergic: no symptoms reported All Other Systems Reviewed Negative Unless Noted: Yes Past Wxbexwl-Dctrxy-Qxxlqu Hx Patient Social History Substance use?: Yes Substance type: Methamphetamine Immunizations Up To Date First/Initial COVID19 Vaccinat: 2020 Second COVID19 Vaccination Magdaleno: 2020 Third COVID19 Vaccination Date: 2020 Seasonal Allergies Seasonal Allergies: No Past Medical History Surgery/Hospitalization HX: Mood disorder; COPD; Neuropathy; Frequent falls; HTN; Fibromyalgia; O2 dependent Surgeries: Yes (HIP, suprapubic catheter, Dental) Appendectomy, Gallbladder, Hysterectomy, Orthopedic Respiratory: Yes Asthma, Pneumonia, Chronic Bronchitis, Pulmonary Embolism, COPD, Emphysema Cardiac: Yes (CHF) Neurological: Yes Neuropathy 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 Disorders: No 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 Sexually Transmitted Disease: No HIV/AIDS: No Genitourinary: Yes Kidney Stones, Neurogenic Bladder, UTI-Chronic Gastrointestinal: Yes Abdominal Hernia, Gastroesophageal Reflux, Chronic Constipation, Irritable Bowel Musculoskeletal: Yes Arthritis, Fibromyalgia, Back Injury, Chronic Back Pain, Fractures, Spasms Endocrine: Yes Diabetes, Insulin dep, Hypothyroidsim HEENT: No Hearing Impairment: Hard of Hearing Cancer: Yes Ovarian Psychosocial: Yes ADD/ADHD, Bipolar, Schizophrenia Integumentary: No Blood Disorders: No Family Medical History No Pertinent Family Hx Physical Exam Vital Signs Capillary Refill : Height, Weight, BMI Height: '" Weight: 275lbs. oz. 124.875175aw; 42.00 BMI Method:Stated General Appearance: No Apparent Distress, WD/WN HEENT: PERRL/EOMI, Normal ENT Inspection, Pharynx Normal Neck: Full Range of Motion, Normal Inspection, Non Tender, Supple Respiratory: Chest Non Tender, No Accessory Muscle Use, No Respiratory Distress, Wheezing Cardiovascular: Regular Rate, Rhythm, No Edema, Normal Peripheral Pulses Gastrointestinal: Normal Bowel Sounds, Non Tender, Soft; No Distended, No Guarding Back: Normal Inspection, No CVA Tenderness Extremity: Normal Capillary Refill, Normal Inspection, Normal Range of Motion, Non Tender, No Calf Tenderness, No Pedal Edema Neurologic/Psychiatric: Alert, No Motor/Sensory Deficits, Normal Mood/Affect Skin: Normal Color, Warm/Dry, Other (Multiple excoriations over the skin with no drainage, no cellulitis, no mucous membrane involvement) Lymphatic: No Adenopathy Progress/Results/Core Measures Suspected Sepsis SIRS Temperature: Pulse: Respiratory Rate: Blood Pressure / Mean: Results/Orders My Orders Orders - SERINA YOUNGBLOOD MD Diphenhydramine Injection (Benadryl Inje (03/27/22 21:00) Olanzapine Orally Dissolve Tab (Zyprexa (03/27/22 21:00) Albuterol/Ipra Inhalation Soln (Duoneb I (03/27/22 21:00) Vital Signs/I&O Capillary Refill : Progress Note : Progress Note 51-year-old female with above history coming in due to itchy skin. ABCs were intact and vitals were stable on presentation. Physical exam with multiple excoriations of her skin. I do not see any hand involvement, foot involvement, or mucous membrane involvement. Rest of it appears self-inflicted. I asked the patient if she is used meth recently, she states the most recent time was roughly 2 months ago. She is otherwise denying any other acute complaints. She is wheezing on exam, but she states she is not short of breath. Departure Impression Primary Impression: Pruritus Disposition: HOME, SELF-CARE Condition: Stable Departure-Patient Inst. Decision time for Depature: 21:20 Referrals: ANA HASSAN APRN (PCP) Primary Care Physician [facility] (Family) Primary Care Physician Patient Instructions: Itchy Skin Add. Discharge Instructions: If you continue to itch and pick at your skin, eventually will get infected. Try your hardest not to pick at it. Please follow-up with your regular doctor as you may need a referral to a associate product manager. A new medicine was sent to your pharmacy to take for the itching. Do not mix it with Benadryl Scripts Hydroxyzine HCl (Hydroxyzine HCl) 25 Mg Tablet 25 MG PO Q6H PRN for ITCHING for 7 Days, #28 TAB Prov: SERINA YOUNGBLOOD MD 03/27/22 SERINA YOUNGBLOOD MD Mar 27, 2022 21:05
[2022-03-27 21:24] VITALS: BP 149/100
== END 2022-03-27 21:25 | disposition home or self-care (01) ==
LOC: EDUNIT# 20:51 → ER FS 20:52
DX: L29.9 Pruritus, unspecified (principal); E11.40 Type 2 diabetes mellitus with diabetic neuropathy, unspecified; J43.9 Emphysema, unspecified; Z99.81 Dependence on supplemental oxygen; Z28.310 Unvaccinated for COVID-19; Z79.4 Long term (current) use of insulin
CPT/HCPCS: 99284

== ENCOUNTER 2022-04-14 01:47 | Emergency (ER) | payer MEDICAID ==
[~2022-04-14] VITALS: Ht 152 cm; Wt 107.0 kg
[~2022-04-14 01:47] MED LIST changes: +ALBU8.5H6 IH; +HYDR-700 PO; -RT-ALBUINH IH
[2022-04-14] MEDS ORDERED: AZITHROMYCIN 250 MG TAB (ZITHROMAX) PO ONE (02:00)
[2022-04-14] MEDS ORDERED: RT-ALBUTEROL/IPRATROPIUM 3 ML (DUONEB) VIAL INH ONE (02:00)
--- NOTE | 2022-04-14 02:03 | ED Respiratory ---
General Chief Complaint: Back Problems Stated Complaint: RESP PROBLEM Source: patient Exam Limitations: no limitations History of Present Illness Date Seen by Provider: Apr 14, 2022 Time Seen by Provider: 01:53 Initial Comments 51-year-old female with past medical history of COPD on baseline 2 to 3 L oxygen still smoking between 1 to 4 packs of cigarettes per day coming in via EMS due to shortness of breath. She noticed she started wheezing more roughly 6 hours prior to arrival. She did a DuoNeb treatment just shortly prior to EMS arrival. EMS did a repeat DuoNeb treatment, she states she feels close to her baseline at this time. Denies any fever, chest pain, abdominal pain, nausea, vomiting, diarrhea, weakness, numbness, or any other concerns Allergies and Home Medications Allergies Coded Allergies: doxycycline (Unverified Allergy, Mild, nauseated, 08/01/09) spinach (Unverified Allergy, Mild, 08/01/09) alprazolam (Verified Allergy, Unknown, 07/18/19) diazepam (Verified Allergy, Unknown, 07/18/19) sumatriptan (Verified Allergy, Unknown, 07/18/19) Patient Home Medication List Home Medication List Reviewed: Yes Albuterol Sulfate (Ventolin Hfa) 1 Puff Puff, 2 PUFF INH Q4H PRN for COUGH, (Reported) Entered as Reported by: PEREZ HENDERSON on 03/29/20 1200 Albuterol/Ipratropium (Combivent Respimat Inhal [place]) 4 Gm Aero, 2 PUFF IH TID Prescribed by: EMILY DOMÍNGUEZ on 10/03/201913 Furosemide (Furosemide) 40 Mg Tablet, 40 MG PO BID, (Reported) Entered as Reported by: PEREZ HENDERSON on 03/29/20 1200 Gabapentin (Gabapentin) 600 Mg Tablet, 1,200 MG PO TID, (Reported) Entered as Reported by: PEREZ HENDERSON on 03/29/20 1200 Glimepiride (Glimepiride) 2 Mg Tablet, 2 MG PO BID, (Reported) Entered as Reported by: PEREZ HENDERSON on 03/29/20 1200 Haloperidol (Haloperidol) 10 Mg Tablet, 10 MG PO TID, (Reported) Entered as Reported by: PEREZ HENDERSON on 03/29/20 1200 Hydroxyzine HCl (Hydroxyzine HCl) 25 Mg Tablet, 25 MG PO Q6H PRN for ITCHING Prescribed by: SERINA YOUNGBLOOD on 03/27/222104 Lurasidone HCl (Latuda) 120 Mg Tablet, 120 MG PO 1800, (Reported) Entered as Reported by: PEREZ HENDERSON on 03/29/201199 Lurasidone HCl (Latuda) 40 Mg Tablet, 40 MG PO 1800, (Reported) Entered as Reported by: PEREZ HENDERSON on 03/29/201199 Methocarbamol (Methocarbamol) 500 Mg Tablet, 500 MG PO Q8H Prescribed by: SUELLEN RICO MD on 09/25/212326 Montelukast Sodium (Montelukast Sodium) 10 Mg Tablet, 10 MG PO DAILY, (Reported) Entered as Reported by: PEREZ HENDERSON on 03/29/201199 Phenytoin Sodium Extended (Phenytoin Sodium Extended) 200 Mg Capsule, 200 MG PO BID, (Reported) Entered as Reported by: PEREZ HENDERSON on 03/29/201199 Prednisone (Prednisone) 20 Mg Tab, 40 MG PO DAILY Prescribed by: TASH ALARCON on 03/17/22 0330 Quetiapine Fumarate (Quetiapine Fumarate) 100 Mg Tablet, 300 MG PO DAILY, (Reported) Entered as Reported by: PEREZ HENDERSON on 03/29/201199 Rivaroxaban (Xarelto) 20 Mg Tablet, 20 MG PO DAILY, (Reported) Entered as Reported by: PEREZ HENDERSON on 03/29/201199 Topiramate (Topiramate) 100 Mg Tablet, 200 MG PO BID, (Reported) Entered as Reported by: PEREZ HENDERSON on 03/29/201199 Trazodone HCl (Trazodone HCl) 100 Mg Tablet, 200 MG PO HS, (Reported) Entered as Reported by: PEREZ HENDERSON on 03/29/201199 Venlafaxine HCl (Venlafaxine HCl ER) 150 Mg Cap.er.24h, 300 MG PO DAILY, (Reported) Entered as Reported by: PEREZ HENDERSON on 03/29/201199 Review of Systems Review of Systems Constitutional: No fever EENTM: No blurred vision Respiratory: cough, short of breath, wheezing Cardiovascular: No chest pain Gastrointestinal: no symptoms reported Genitourinary: no symptoms reported Musculoskeletal: no symptoms reported Skin: no symptoms reported Psychiatric/Neurological: No Symptoms Reported Hematologic/Lymphatic: No Symptoms Reported Immunological/Allergic: no symptoms reported All Other Systems Reviewed Negative Unless Noted: Yes Past Xszhvbn-Ajnspw-Mhfmla Hx Patient Social History Tobacco Use?: Yes Tobacco type used: Cigarettes Smoking Status: Heavy Tobacco Smoker Substance use?: Yes Substance type: Methamphetamine Alcohol Use?: No Immunizations Up To Date Influenza Vaccine Up-to-Date: No; Not Current First/Initial COVID19 Vaccinat: 2020 Second COVID19 Vaccination Magdaleno: 2020 Third COVID19 Vaccination Date: 2020 Seasonal Allergies Seasonal Allergies: No Past Medical History Surgery/Hospitalization HX: Mood disorder; COPD; Neuropathy; Frequent falls; HTN; Fibromyalgia; O2 dependent Surgeries: Yes (HIP, suprapubic catheter, Dental) Appendectomy, Gallbladder, Hysterectomy, Orthopedic Respiratory: Yes Asthma, Pneumonia, Chronic Bronchitis, Pulmonary Embolism, COPD, Emphysema Cardiac: Yes (CHF) Neurological: Yes Neuropathy 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 Disorders: No 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 Sexually Transmitted Disease: No HIV/AIDS: No Genitourinary: Yes Kidney Stones, Neurogenic Bladder, UTI-Chronic Gastrointestinal: Yes Abdominal Hernia, Gastroesophageal Reflux, Chronic Constipation, Irritable Bowel Musculoskeletal: Yes Arthritis, Fibromyalgia, Back Injury, Chronic Back Pain, Fractures, Spasms Endocrine: Yes Diabetes, Insulin dep, Hypothyroidsim HEENT: No Hearing Impairment: Hard of Hearing Cancer: Yes Ovarian Psychosocial: Yes ADD/ADHD, Bipolar, Schizophrenia Integumentary: No Blood Disorders: No Family Medical History No Pertinent Family Hx Physical Exam Vital Signs - First Documented 04/14/22 01:48 Temp 36.1 Pulse 107 Resp 24 B/P (MAP) 119/79 (92) Pulse Ox 96 O2 Delivery Nasal Cannula O2 Flow Rate 3.00 Capillary Refill : Height: '" Weight: 275lbs. oz. 124.673810ea; 42.00 BMI Method:Stated General Appearance: WD/WN, no apparent distress Eyes: Bilateral Eye Normal Inspection HEENT: PERRL/EOMI, normal ENT inspection, pharynx normal Neck: non-tender, full range of motion, supple Respiratory: chest non-tender, no respiratory distress, no accessory muscle use, wheezing Cardiovascular: regular rate, rhythm, no edema, no murmur Gastrointestinal: normal bowel sounds, non tender, soft; No distended, No guarding, No rebound Extremities: normal range of motion, non-tender, normal inspection, no pedal edema, no calf tenderness, normal capillary refill Neurologic/Psychiatric: no motor/sensory deficits, alert, normal mood/affect Skin: normal color, warm/dry Lymphatic: no adenopathy Progress/Results/Core Measures Suspected Sepsis SIRS Temperature: Pulse: Respiratory Rate: Blood Pressure / Mean: Results/Orders My Orders Orders - SERINA YOUNGBLOOD MD Azithromycin Tablet (Zithromax Tablet) (04/14/22 02:00) Albuterol/Ipra Inhalation Soln (Duoneb I (04/14/22 02:00) Dexamethasone Injection (Decadron Injec (04/14/22 02:00) Chest 1 View Ap/Pa Only (04/14/22 02:03) Medications Given in ED Current Medications Medications Dose Ordered Sig/Kurtis Route Start Time Stop Time Status Last Admin Dose Admin Albuterol/ Ipratropium 3 ml ONCE ONCE INH 04/14/22 02:00 04/14/22 02:01 DC 04/14/22 02:08 3 ML Azithromycin 500 mg ONCE ONCE PO 04/14/22 02:00 04/14/22 02:01 DC 04/14/22 02:09 500 MG Dexamethasone Sodium Phosphate 8 mg ONCE ONCE IM 04/14/22 02:00 04/14/22 02:01 DC 04/14/22 02:11 8 MG Vital Signs/I&O 04/14/22 04/14/22 04/14/22 01:48 01:51 02:14 Temp 36.1 Pulse 107 Resp 24 B/P (MAP) 119/79 (92) Pulse Ox 96 96 O2 Delivery Nasal Cannula Nasal Cannula Nasal Cannula O2 Flow Rate 3.00 3.00 3.00 Capillary Refill : Progress Note : Progress Note 51yoF with above history coming in due to wheezing and feeling SOB prior to arrival. ABCs were intact and vitals were stable on presentation. Physical exam with bilateral lung calix wheezing but she is well-appearing and breathing comfortably. She states she is feeling back to her baseline since the DuoNeb by EMS. Give her DuoNeb repeat treatment here, Decadron for likely COPD exacerbation, and azithromycin. Chest x-ray my interpretation with no obvious pneumonia, pneumothorax, and appears similar to prior chest x-ray. The patient is well up appearing, and her oxygen is normal even on room air despite being on baseline oxygen. I believe she is stable for discharge with outpatient follow-up. She was sent home with strict return precautions. Departure Impression Primary Impression: COPD with exacerbation Disposition: HOME, SELF-CARE Condition: Stable Departure-Patient Inst. Decision time for Depature: 02:21 Referrals: ANA HASSAN APRN (PCP) Primary Care Physician [facility] (Family) Primary Care Physician Patient Instructions: COPD Exacerbation, Adult ED Add. Discharge Instructions: You will be on antibiotics and steroids for the next several days. Follow-up with your regular doctor if you are not improving. Continue to give yourself breathing treatments at least every 4 hours. Scripts Azithromycin (Azithromycin) 250 Mg Tablet 250 MG PO DAILY, #4 TAB 0 Refills take first pill on 04/15, had first dose in ER Prov: SERINA YOUNGBLOOD MD 04/14/22 Methylprednisolone (Methylprednisolone Dose Pack) 4 Mg Tab.ds.pk 4 MG PO UD for 6 Days, #21 PKG PER DOSE PACK INSTRUCTIONS Prov: SERINA YOUNGBLOOD MD 04/14/22 Work/School Note: Work Release Form Date Seen in the Emergency Department: Apr 14, 2022 Return to Work: Apr 15, 2022 Restrictions: No Restrictions SERINA YOUNGBLOOD MD Apr 14, 2022 02:03
[2022-04-14] MEDS ORDERED: AZIT250T12 PO (02:23)
[2022-04-14] MEDS ORDERED: METH4TAB10 PO (02:23)
[2022-04-14 02:37] VITALS: BP 113/57
--- NOTE | 2022-04-14 08:06 | Diagnostic Imaging Report ---
INDICATION: Shortness of breath. Compared 02/09/2022. FINDINGS: The lungs are clear. No failure, effusion or pneumothorax. IMPRESSION: No acute appearing abnormality. Dictated by: Dictated on workstation # [id number]
== END 2022-04-14 03:02 | disposition home or self-care (01) ==
LOC: EDUNIT# 01:47 → ER FS 01:50
DX: J44.1 Chronic obstructive pulmonary disease with (acute) exacerbation (principal); E11.9 Type 2 diabetes mellitus without complications; F17.210 Nicotine dependence, cigarettes, uncomplicated; Z88.1 Allergy status to other antibiotic agents; Z79.4 Long term (current) use of insulin; Z99.81 Dependence on supplemental oxygen
CPT/HCPCS: 71045; 94640

== ENCOUNTER 2022-05-29 12:53 | Emergency (ER) | payer MEDICAID ==
[~2022-05-29] VITALS: Ht 160 cm; Wt 110.0 kg
[~2022-05-29 12:53] MED LIST changes: +METH4TAB10 PO
[2022-05-29] MEDS ORDERED: NS IV 1000 ML 1,000 ML IV SCH (13:15)
[2022-05-29 13:24] LABS: BASOPHILS # (AUTO) 0.1 10^3/uL (0.0-0.1); BASOPHILS % (AUTO) 1 % (0-10); EOSINOPHILS # (AUTO) 0.1 10^3/uL (0.0-0.3); EOSINOPHILS % (AUTO) 1 % (0-10); HEMATOCRIT 49 % (35-52); HEMOGLOBIN 16.6 g/dL (11.5-16.0); LYMPHOCYTES # (AUTO) 3.1 10^3/uL (1.0-4.0); LYMPHOCYTES % (AUTO) 25 % (12-44); MEAN CORPUSCULAR HEMOGLOBIN 30 pg (25-34); MEAN CORPUSCULAR HGB CONC 34 g/dL (32-36); MEAN CORPUSCULAR VOLUME 90 fL (80-99); MEAN PLATELET VOLUME 9.7 fL (9.0-12.2); MONOCYTES # (AUTO) 0.8 10^3/uL (0.0-1.0); MONOCYTES % (AUTO) 6 % (0-12); NEUTROPHILS # (AUTO) 8.5 10^3/uL (1.8-7.8); NEUTROPHILS % (AUTO) 67 % (42-75); PLATELET COUNT 246 10^3/uL (130-400); WHITE BLOOD COUNT 12.6 10^3/uL (4.3-11.0)
[2022-05-29 13:29] LABS: BILIRUBIN,URINE NEGATIVE (NEGATIVE); CLARITY,URINE CLEAR; COLOR,URINE YELLOW; GLUCOSE, URINE (UA) NEGATIVE (NEGATIVE); KETONES,URINE NEGATIVE (NEGATIVE); LEUKOCYTE ESTERASE ,URINE TRACE (NEGATIVE); NITRITE,URINE NEGATIVE (NEGATIVE); PH,URINE 6.5 (5-9); PROTEIN,URINE NEGATIVE (NEGATIVE)
[2022-05-29 13:40] LABS: BACTERIA,URINE TRACE /HPF; SQUAMOUS EPITHELIAL CELL,UR RARE /HPF; WBC,URINE 0-2 /HPF
[2022-05-29 13:46] LABS: AMPHETAMINE SCREEN, URINE NEGATIVE (NEGATIVE); BARBITURATE SCREEN URINE POSITIVE (NEGATIVE); BENZODIAZEPINES SCREEN URINE NEGATIVE (NEGATIVE); CANNABINOID SCREEN, URINE NEGATIVE (NEGATIVE); COCAINE SCREEN URINE NEGATIVE (NEGATIVE); METHADONE STAT NEGATIVE (NEGATIVE); OPIATE SCREEN URINE NEGATIVE (NEGATIVE); OXYCODONE STAT NEGATIVE (NEGATIVE); PROPOXYPHENE STAT NEGATIVE (NEGATIVE); TRICYCLIC ANTIDEPRESSANTS SCRE NEGATIVE (NEGATIVE)
[2022-05-29 13:49] LABS: ACETAMINOPHEN < 10 UG/ML (10-30); ALANINE AMINOTRANSFERASE 9 U/L (0-55); ALBUMIN 4.3 GM/DL (3.2-4.5); ALKALINE PHOSPHATASE 122 U/L (40-136); BILIRUBIN,TOTAL 0.4 MG/DL (0.1-1.0); BUN/CREATININE RATIO 16; CALCIUM 9.3 MG/DL (8.5-10.1); CARBON DIOXIDE 21 MMOL/L (21-32); CHLORIDE 105 MMOL/L (98-107); CREATININE SERUM 1.12 MG/DL (0.60-1.30); GFR ESTIMATED 60; GLUCOSE 141 MG/DL (70-105); SALICYLATE < 0.3 MG/DL (5.0-20.0); SODIUM 138 MMOL/L (135-145); TOTAL PROTEIN 7.7 GM/DL (6.4-8.2)
[2022-05-29 14:57] VITALS: BP 142/82
--- NOTE | 2022-05-29 15:23 | ED Psychosocial ---
General Chief Complaint: Psych/Social Disorder Stated Complaint: OVERDOSE Nursing Triage Note: Patient has been brought to ER by EMS with cc of taking 2 mouth fulls of pills. Per EMS reports patient took mouth full of lasix - 40mg, and about 30 lamictal 100mg tabs at about 1200 today. Per the patient she had been in a fight with her and she was mad and took the pills and "just wanted to be left alone and go to sleep". History of Present Illness Date Seen by Provider: May 29, 2022 Time Seen by Provider: 13:11 Initial Comments 52-year-old female patient with history of COPD, neuropathy, pulmonary embolism, chronic constipation, GERD, IBS, neurogenic bladder, fibromyalgia, diabetes mellitus, hypothyroidism, schizophrenia and bipolar disorder, previous episode of suicidal attempt and mental hospitalization brought in by EMS because of drug overdose. Patient states she took and not numbers of Lasix and Lamictal belonged to her because she wanted to sleep but she did not have suicidal ideation. Patient states she had problem with her and was not able to sleep for several nights and wanted to able to fall asleep. Patient had refill of Lasix 40 mg #60 on 05/16/2022 with empty bottle and also Lamictal 100 mg #30 refill on 09/29/2021 with empty bottle brought in by EMS. Patient states she took the medication about 45 minutes prior to arrival to ER and denies nausea and vomiting, chest pain, shortness of breath, fever and chills, focal neurodeficit, homicidal and suicidal ideation, hallucination.z Allergies and Home Medications Allergies Coded Allergies: doxycycline (Unverified Allergy, Mild, nauseated, 08/01/09) spinach (Unverified Allergy, Mild, 08/01/09) alprazolam (Verified Allergy, Unknown, 07/18/19) diazepam (Verified Allergy, Unknown, 07/18/19) sumatriptan (Verified Allergy, Unknown, 07/18/19) Patient Home Medication List Home Medication List Reviewed: Yes Albuterol Sulfate (Ventolin Hfa) 1 Puff Puff, 2 PUFF INH Q4H PRN for COUGH, (Reported) Entered as Reported by: PEREZ HENDERSON on 03/29/20 1200 Albuterol/Ipratropium (Combivent Respimat Inhal [place]) 4 Gm Aero, 2 PUFF IH TID Prescribed by: EMILY DOMÍNGUEZ on 10/03/201913 Azithromycin (Azithromycin) 250 Mg Tablet, 250 MG PO DAILY Prescribed by: SERINA YOUNGBLOOD on 04/14/22222 Furosemide (Furosemide) 40 Mg Tablet, 40 MG PO BID, (Reported) Entered as Reported by: PEREZ HENDERSON on 03/29/201199 Gabapentin (Gabapentin) 600 Mg Tablet, 1,200 MG PO TID, (Reported) Entered as Reported by: PEREZ HENDERSON on 03/29/201199 Glimepiride (Glimepiride) 2 Mg Tablet, 2 MG PO BID, (Reported) Entered as Reported by: PEREZ HENDERSON on 03/29/201199 Haloperidol (Haloperidol) 10 Mg Tablet, 10 MG PO TID, (Reported) Entered as Reported by: PEREZ HENDERSON on 03/29/201199 Hydroxyzine HCl (Hydroxyzine HCl) 25 Mg Tablet, 25 MG PO Q6H PRN for ITCHING Prescribed by: SERINA YOUNGBLOOD on 03/27/222104 Lurasidone HCl (Latuda) 120 Mg Tablet, 120 MG PO 1800, (Reported) Entered as Reported by: PEREZ HENDERSON on 03/29/201199 Lurasidone HCl (Latuda) 40 Mg Tablet, 40 MG PO 1800, (Reported) Entered as Reported by: PEREZ HENDERSON on 03/29/201199 Methocarbamol (Methocarbamol) 500 Mg Tablet, 500 MG PO Q8H Prescribed by: SUELLEN RICO MD on 09/25/212326 Methylprednisolone (Methylprednisolone Dose Pack) 4 Mg Tab.ds.pk, 4 MG PO UD Prescribed by: SERINA YOUNGBLOOD on 04/14/22222 Montelukast Sodium (Montelukast Sodium) 10 Mg Tablet, 10 MG PO DAILY, (Reported) Entered as Reported by: PEREZ HENDERSON on 03/29/201199 Phenytoin Sodium Extended (Phenytoin Sodium Extended) 200 Mg Capsule, 200 MG PO BID, (Reported) Entered as Reported by: PEREZ HENDERSON on 03/29/201199 Prednisone (Prednisone) 20 Mg Tab, 40 MG PO DAILY Prescribed by: TASH ALARCON on 03/17/22 0330 Quetiapine Fumarate (Quetiapine Fumarate) 100 Mg Tablet, 300 MG PO DAILY, (Reported) Entered as Reported by: PEREZ HENDERSON on 03/29/201199 Rivaroxaban (Xarelto) 20 Mg Tablet, 20 MG PO DAILY, (Reported) Entered as Reported by: PEREZ HENDERSON on 03/29/201199 Topiramate (Topiramate) 100 Mg Tablet, 200 MG PO BID, (Reported) Entered as Reported by: PEREZ HENDERSON on 03/29/201199 Trazodone HCl (Trazodone HCl) 100 Mg Tablet, 200 MG PO HS, (Reported) Entered as Reported by: PEREZ HENDERSON on 03/29/201199 Venlafaxine HCl (Venlafaxine HCl ER) 150 Mg Cap.er.24h, 300 MG PO DAILY, (Reported) Entered as Reported by: PEREZ HENDERSON on 03/29/201199 Review of Systems Constitutional: see HPI EENTM: see HPI Respiratory: see HPI Cardiovascular: see HPI Gastrointestinal: see HPI Genitourinary: see HPI Musculoskeletal: see HPI Skin: see HPI Psychiatric/Neurological: See HPI All Other Systems Reviewed Negative Unless Noted: Yes Past Ruedyzd-Wpwyzj-Ppkgjg Hx Patient Social History Tobacco Use?: Yes Tobacco type used: Cigarettes Smoking Status: Current Everyday Smoker Substance use?: No Alcohol Use?: No Immunizations Up To Date First/Initial COVID19 Vaccinat: 2020 Second COVID19 Vaccination [place]: 2020 Third COVID19 Vaccination Date: 2020 Seasonal Allergies Seasonal Allergies: No Past Medical History Surgery/Hospitalization HX: Mood disorder; COPD; Neuropathy; Frequent falls; HTN; Fibromyalgia; O2 dependent Surgeries: Yes (HIP, suprapubic catheter, Dental) Appendectomy, Gallbladder, Hysterectomy, Orthopedic Respiratory: Yes Asthma, Pneumonia, Chronic Bronchitis, Pulmonary Embolism, COPD, Emphysema Cardiac: Yes (CHF) Neurological: Yes Neuropathy 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 Disorders: No 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 [employer] History: Hysterectomy Sexually Transmitted Disease: No HIV/AIDS: No Genitourinary: Yes Kidney Stones, Neurogenic Bladder, UTI-Chronic Gastrointestinal: Yes Abdominal Hernia, Gastroesophageal Reflux, Chronic Constipation, Irritable Bowel Musculoskeletal: Yes Arthritis, Fibromyalgia, Back Injury, Chronic Back Pain, Fractures, Spasms Endocrine: Yes Diabetes, Insulin dep, Hypothyroidsim HEENT: No Hearing Impairment: Hard of Hearing Cancer: Yes Ovarian Psychosocial: Yes ADD/ADHD, Bipolar, Schizophrenia Integumentary: No Blood Disorders: No Family Medical History No Pertinent Family Hx Physical Exam Vital Signs - First Documented 05/29/22 14:57 Temp 35.4 Pulse 115 Resp 20 B/P (MAP) 142/82 (102) Pulse Ox 96 O2 Delivery Room Air Capillary Refill : Height, Weight, BMI Height: '" Weight: 275lbs. oz. 124.646812gn; 42.00 BMI Method:Stated General Appearance: mild distress (Very anxious and tearful), obese (Morbidly obese) HEENT: PERRL/EOMI, normal ENT inspection Neck: non-tender, full range of motion, supple Respiratory: chest non-tender, lungs clear, normal breath sounds, no respiratory distress Cardiovascular: no edema, no gallop, no JVD, tachycardia Gastrointestinal: normal bowel sounds, non tender, soft Extremities: normal range of motion, non-tender Neurologic/Psychiatric: no motor/sensory deficits, alert, oriented x 3 Behavior/Eye Contact: cooperative Skin: normal color Lymphatic: no adenopathy Progress/Results/Core Measures Results/Orders Lab Results Laboratory Tests Test 05/29/22 13:11 05/29/22 13:22 Range/Units White Blood Count 12.6 H 4.3-11.0 10^3/uL Red Blood Count 5.51 H 3.80-5.11 10^6/uL Hemoglobin 16.6 H 11.5-16.0 g/dL Hematocrit 49 35-52 % Mean Corpuscular Volume 90 80-99 fL Mean Corpuscular Hemoglobin 30 25-34 pg Mean Corpuscular Hemoglobin Concent 34 32-36 g/dL Red Cell Distribution Width 13.2 10.0-14.5 % Platelet Count 246 130-400 10^3/uL Mean Platelet Volume 9.7 9.0-12.2 fL Immature Granulocyte % (Auto) 1 % Neutrophils (%) (Auto) 67 42-75 % Lymphocytes (%) (Auto) 25 12-44 % Monocytes (%) (Auto) 6 0-12 % Eosinophils (%) (Auto) 1 0-10 % Basophils (%) (Auto) 1 0-10 % Neutrophils # (Auto) 8.5 H 1.8-7.8 10^3/uL Lymphocytes # (Auto) 3.1 1.0-4.0 10^3/uL Monocytes # (Auto) 0.8 0.0-1.0 10^3/uL Eosinophils # (Auto) 0.1 0.0-0.3 10^3/uL Basophils # (Auto) 0.1 0.0-0.1 10^3/uL Immature Granulocyte # (Auto) 0.1 0.0-0.1 10^3/uL Sodium Level 138 135-145 MMOL/L Potassium Level 4.0 3.6-5.0 MMOL/L Chloride Level 105 98-107 MMOL/L Carbon Dioxide Level 21 21-32 MMOL/L Anion Gap 12 5-14 MMOL/L Blood Urea Nitrogen 18 7-18 MG/DL Creatinine 1.12 0.60-1.30 MG/DL Estimat Glomerular Filtration Rate 60 BUN/Creatinine Ratio 16 Glucose Level 141 H 70-105 MG/DL Calcium Level 9.3 8.5-10.1 MG/DL Corrected Calcium 9.1 8.5-10.1 MG/DL Total Bilirubin 0.4 0.1-1.0 MG/DL Aspartate Amino Transf (AST/SGOT) 9 5-34 U/L Alanine Aminotransferase (ALT/SGPT) 9 0-55 U/L Alkaline Phosphatase 122 40-136 U/L Total Protein 7.7 6.4-8.2 GM/DL Albumin 4.3 3.2-4.5 GM/DL Salicylates Level < 0.3 L 5.0-20.0 MG/DL Acetaminophen Level < 10 L 10-30 UG/ML Serum Alcohol < 10 <10 MG/DL Urine Color YELLOW Urine Clarity CLEAR Urine pH 6.5 5-9 Urine Specific [place] 1.010 L 1.016-1.022 Urine Protein NEGATIVE NEGATIVE Urine Glucose (UA) NEGATIVE NEGATIVE Urine Ketones NEGATIVE NEGATIVE Urine Nitrite NEGATIVE NEGATIVE Urine Bilirubin NEGATIVE NEGATIVE Urine Urobilinogen 0.2 < = 1.0 MG/DL Urine Leukocyte Esterase TRACE H NEGATIVE Urine RBC (Auto) TRACE-I H NEGATIVE Urine RBC NONE /HPF Urine WBC 0-2 /HPF Urine Squamous Epithelial Cells RARE /HPF Urine Crystals NONE /LPF Urine Bacteria TRACE /HPF Urine Casts NONE /LPF Urine Mucus NEGATIVE /LPF Urine Culture Indicated NO Urine Opiates Screen NEGATIVE NEGATIVE Urine Oxycodone Screen NEGATIVE NEGATIVE Urine Methadone Screen NEGATIVE NEGATIVE Urine Propoxyphene Screen NEGATIVE NEGATIVE Urine Barbiturates Screen POSITIVE H NEGATIVE Ur Tricyclic Antidepressants Screen NEGATIVE NEGATIVE Urine Phencyclidine Screen NEGATIVE NEGATIVE Urine Amphetamines Screen NEGATIVE NEGATIVE Urine Methamphetamines Screen NEGATIVE NEGATIVE Urine Benzodiazepines Screen NEGATIVE NEGATIVE Urine Cocaine Screen NEGATIVE NEGATIVE Urine Cannabinoids Screen NEGATIVE NEGATIVE My Orders Orders - KASI KEN MD Ua Culture If Indicated (05/29/22 13:14) Cbc With Automated Diff (05/29/22 13:14) Comprehensive Metabolic Panel (05/29/22 13:14) Alcohol (05/29/22 13:14) Drug Screen Stat (Urine) (05/29/22 13:14) Acetaminophen (05/29/22 13:14) Salicylate (05/29/22 13:14) Ekg Tracing (05/29/22 13:14) Ed Iv/Invasive Line Start (05/29/22 13:14) Monitor-Rhythm Ecg Trace Only (05/29/22 13:14) Bh Status Checks/Observation O Q15M (05/29/22 13:14) Ed Iv/Invasive Line Start (05/29/22 13:14) Ns Iv 1000 Ml (Sodium Chloride 0.9%) (05/29/22 13:15) Vital Signs/I&O 05/29/22 14:57 Temp 35.4 Pulse 115 Resp 20 B/P (MAP) 142/82 (102) Pulse Ox 96 O2 Delivery Room Air Blood Pressure Mean: 102 Progress Progress Note : Progress Note 52-year-old female patient with extensive psychiatric history and frequent ER visits and mental hospitalization with [facility] taking overdose of Lasix and Lamictal without suicidal ideation to able to fall asleep. Patient had a stable vital sign and unremarkable labs. Patient was evaluated by psychiatric drier tender and did not have criteria for inpatient admission. Patient had safety plan signed and discharged home with family member and advised to not take her medication more than it was recommended and follow-up with her therapeutic case manager/psychiatric. Patient denied suicidal homicidal ideation and hallucination at time of discharge. Initial ECG Impression Date: May 29, 2022 Initial ECG Impression Time: 13:29 Initial ECG Rate: 122 Comment EKG interpreted by me. EKG at 1329 showed sinus tachycardia at rate of 122, left axis deviation, VT interval of 149 and QT of 328 with corrected QT of 400, Q waves in inferior leads, no acute ST and T wave elevation. Departure Impression Primary Impression: Intentional overdose Qualified Codes: T50.902A - Poisoning by unspecified drugs, medicaments and biological substances, intentional self-harm, initial encounter Additional Impression: Anxiety reaction Disposition: 01 HOME, SELF-CARE Condition: Improved Departure-Patient Inst. Decision time for Depature: 17:56 Referrals: ANA HASSAN APRN (PCP) Primary Care Physician [facility] (Family) Primary Care Physician Patient Instructions: Generalized Anxiety Disorder (DC), Stress, Tips to Help You Bim in Uncertain Times Add. Discharge Instructions: Follow-up with safety plan and agreement Follow-up with your therapeutic case manager/psychiatry in 2 days Do not take your medication more than it was advised Follow-up with your primary care physician or return to ER as needed All discharge instructions reviewed with patient and/or family. Voiced understanding. KASI KEN MD May 29, 2022 15:23
== END 2022-05-29 18:05 | disposition home or self-care (01) ==
LOC: EDUNIT# 12:53 → ER FS 12:55
DX: T50.1X2A Poisoning by loop [high-ceiling] diuretics, intentional self-harm, initial encounter (principal); T42.6X2A Poisoning by other antiepileptic and sedative-hypnotic drugs, intentional self-harm, initial encounter; F41.1 Generalized anxiety disorder; F17.210 Nicotine dependence, cigarettes, uncomplicated
CPT/HCPCS: 36415; 80053; 80306; 80320; 80329; 81000; 85025; 93005

== ENCOUNTER 2022-06-30 13:44 | Emergency (ER) | payer MEDICAID ==
[~2022-06-30] VITALS: Ht 157.5 cm; Wt 109.7 kg
[2022-06-30 13:47] VITALS: BP 91/61
[2022-06-30] MEDS ORDERED: NS IV 1000 ML 1,000 ML IV STA (13:59)
--- NOTE | 2022-06-30 14:02 | ED General ---
General Chief Complaint: Neurological Problems Stated Complaint: SEIZURE Source of Information: Patient, Old Records History of Present Illness Date Seen by Provider: Jun 30, 2022 Time Seen by Provider: 13:51 Initial Comments 52 yo female presenting from [facility] clinic after having a seizure. She was talking to the staff at [facility] and told them she did not want to go to the ED. She has a chronic history of seizures and takes Keppra as well as multiple other medicines to try and help control this. She states they have been recently changing her medications both in dosage and time. She just this week was starting to control her own medicines and set them up to be taken and thinks that she has them wrong. She was not sure if she took her Keppra today. She was over being seen by the mental health provider at [facility] when she had her seizure activity. They had rushed her here to the emergency department and initially she was refusing to be seen but then agreed to be checked into be evaluated. She was tearful at times saying that she was tired from having her seizure and just wanted to get with the clinic and mental health providers to straighten out her medication list. She reports that Dr. Carbajal's office just did labs Sunday or Sunday and told her they were ok so she did not want to have repeat tests done here. She was wanting to sign out AMA or against medical advice because she did not feel she needed to have testing repeated from earlier this week. I had already ordered some basic labs and testing to help evaluate her increased seizure activity so those were already running based on her report to nurses and from [facility] staff that brought her to the ED. She voiced understanding that I could not tell her if there was anything wrong with her tests such as electrolytes being off or infection. She states she does not believe any of that is going on and wants to leave so she can get set up with clinic to manage her medicines. Severity: Mild Modifying Factors: worse with Medication (unsure of medication timing and dosing due to multiple changes recently) Associated Systoms: No Chest Pain, No Cough, No Diaphoresis, No Fever/Chills, No Loss of Appetite, No Malaise, No Nausea/Vomiting, No Rash; Seizure, Shortness of Air (chronic COPD); No Syncope, No Weakness Allergies and Home Medications Allergies Coded Allergies: doxycycline (Unverified Allergy, Mild, nauseated, 08/01/09) spinach (Unverified Allergy, Mild, 08/01/09) alprazolam (Verified Allergy, Unknown, 07/18/19) diazepam (Verified Allergy, Unknown, 07/18/19) sumatriptan (Verified Allergy, Unknown, 07/18/19) Patient Home Medication List Home Medication List Reviewed: Yes Albuterol Sulfate (Ventolin Hfa) 1 Puff Puff, 2 PUFF INH Q4H PRN for COUGH, (Reported) Entered as Reported by: PEREZ HENDERSON on 03/29/20 1200 Albuterol/Ipratropium (Combivent Respimat Inhal [place]) 4 Gm Aero, 2 PUFF IH TID Prescribed by: EMILY DOMÍNGUEZ on 10/03/201913 Azithromycin (Azithromycin) 250 Mg Tablet, 250 MG PO DAILY Prescribed by: SERINA YOUNGBLOOD on 04/14/22222 Furosemide (Furosemide) 40 Mg Tablet, 40 MG PO BID, (Reported) Entered as Reported by: PEREZ HENDERSON on 03/29/20 1200 Gabapentin (Gabapentin) 600 Mg Tablet, 1,200 MG PO TID, (Reported) Entered as Reported by: PEREZ HENDERSON on 03/29/20 1200 Glimepiride (Glimepiride) 2 Mg Tablet, 2 MG PO BID, (Reported) Entered as Reported by: PEREZ HENDERSON on 03/29/20 1200 Haloperidol (Haloperidol) 10 Mg Tablet, 10 MG PO TID, (Reported) Entered as Reported by: PEREZ HENDERSON on 03/29/20 1200 Hydroxyzine HCl (Hydroxyzine HCl) 25 Mg Tablet, 25 MG PO Q6H PRN for ITCHING Prescribed by: SERINA YOUNGBLOOD on 03/27/222104 Lurasidone HCl (Latuda) 120 Mg Tablet, 120 MG PO 1800, (Reported) Entered as Reported by: PEREZ HENDERSON on 03/29/20 1200 Lurasidone HCl (Latuda) 40 Mg Tablet, 40 MG PO 1800, (Reported) Entered as Reported by: PEREZ HENDERSON on 03/29/20 1200 Methocarbamol (Methocarbamol) 500 Mg Tablet, 500 MG PO Q8H Prescribed by: SUELLEN RICO MD on 09/25/21 344 Methylprednisolone (Methylprednisolone Dose Pack) 4 Mg Tab.ds.pk, 4 MG PO UD Prescribed by: SERINA YOUNGBLOOD on 04/14/22 022 Montelukast Sodium (Montelukast Sodium) 10 Mg Tablet, 10 MG PO DAILY, (Reported) Entered as Reported by: PEREZ HENDERSON on 03/29/201199 Phenytoin Sodium Extended (Phenytoin Sodium Extended) 200 Mg Capsule, 200 MG PO BID, (Reported) Entered as Reported by: PEREZ HENDERSON on 03/29/201199 Prednisone (Prednisone) 20 Mg Tab, 40 MG PO DAILY Prescribed by: TASH ALARCON on 03/17/22 0330 Quetiapine Fumarate (Quetiapine Fumarate) 100 Mg Tablet, 300 MG PO DAILY, (Reported) Entered as Reported by: PEREZ HENDERSON on 03/29/201199 Rivaroxaban (Xarelto) 20 Mg Tablet, 20 MG PO DAILY, (Reported) Entered as Reported by: PEREZ HENDERSON on 03/29/201199 Topiramate (Topiramate) 100 Mg Tablet, 200 MG PO BID, (Reported) Entered as Reported by: PEREZ HENDERSON on 03/29/201199 Trazodone HCl (Trazodone HCl) 100 Mg Tablet, 200 MG PO HS, (Reported) Entered as Reported by: PEREZ HENDERSON on 03/29/201199 Venlafaxine HCl (Venlafaxine HCl ER) 150 Mg Cap.er.24h, 300 MG PO DAILY, (Reported) Entered as Reported by: PEREZ HENDERSON on 03/29/201199 Review of Systems Review of Systems Constitutional: No chills, No fever EENTM: no symptoms reported Respiratory: see HPI Cardiovascular: no symptoms reported Gastrointestinal: no symptoms reported Genitourinary: no symptoms reported Musculoskeletal: no symptoms reported Skin: no symptoms reported Psychiatric/Neurological: See HPI, Anxiety, Seizure Past Irjwgja-Biosml-Jfomsr Hx Patient Social History Tobacco Use?: Yes Tobacco type used: Cigarettes Smoking Status: Current Everyday Smoker Substance use?: Yes Substance type: Methamphetamine Alcohol Use?: No Pt feels they are or have been: No Immunizations Up To Date First/Initial COVID19 Vaccinat: 2020 Second COVID19 Vaccination Magdaleno: 2020 Third COVID19 Vaccination Date: 2020 Seasonal Allergies Seasonal Allergies: No Past Medical History Surgery/Hospitalization HX: Mood disorder; COPD; Neuropathy; Frequent falls; HTN; Fibromyalgia; O2 dependent Surgeries: Yes (HIP, suprapubic catheter, Dental) Appendectomy, Gallbladder, Hysterectomy, Orthopedic Respiratory: Yes Asthma, Pneumonia, Chronic Bronchitis, Pulmonary Embolism, COPD, Emphysema Cardiac: Yes (CHF) Neurological: Yes Neuropathy 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 Disorders: No 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 [employer]ECTIVE [employer]IC[employer] SQUAD History: Hysterectomy Sexually Transmitted Disease: No HIV/AIDS: No Genitourinary: Yes Kidney Stones, Neurogenic Bladder, UTI-Chronic Gastrointestinal: Yes Abdominal Hernia, Gastroesophageal Reflux, Chronic Constipation, Irritable Bowel Musculoskeletal: Yes Arthritis, Fibromyalgia, Back Injury, Chronic Back Pain, Fractures, Spasms Endocrine: Yes Diabetes, Insulin dep, Hypothyroidsim HEENT: No Hearing Impairment: Hard of Hearing Cancer: Yes Ovarian Psychosocial: Yes ADD/ADHD, Bipolar, Schizophrenia Integumentary: No Blood Disorders: No Family Medical History No Pertinent Family Hx Physical Exam Vital Signs Vital Signs - First Documented 06/30/22 13:47 Temp 36.2 Pulse 86 Resp 21 B/P (MAP) 91/61 (71) Pulse Ox 93 O2 Delivery Nasal Cannula O2 Flow Rate 4.00 Capillary Refill : Height, Weight, BMI Height: '" Weight: 275lbs. oz. 124.345503mo; 42.00 BMI Method:Stated General Appearance: Anxious, Obese HEENT: PERRL/EOMI, Pharynx Normal; No Moist Mucous Membranes (slightly dry mucus membranes) Neck: Full Range of Motion, Normal Inspection, Non Tender, Supple Respiratory: Chest Non Tender, No Accessory Muscle Use, No Respiratory Distress, Decreased Breath Sounds Cardiovascular: Regular Rate, Rhythm, Normal Peripheral Pulses Gastrointestinal: Normal Bowel Sounds, No Pulsatile Mass, Non Tender, Soft Extremity: Normal Capillary Refill, Pedal Edema (trace to 1+) Neurologic/Psychiatric: Alert, Oriented x3, eyeglass lens generator II-XII Norm as Tested Skin: Warm/Dry Progress/Results/Core Measures Suspected Sepsis SIRS Temperature: Pulse: Respiratory Rate: Laboratory Tests 06/30/22 14:00: White Blood Count 12.8H Blood Pressure / Mean: Laboratory Tests 06/30/22 14:00: Creatinine 0.78, Platelet Count 210, Total Bilirubin 0.3 Results/Orders Lab Results Laboratory Tests Test 06/30/22 14:00 Range/Units White Blood Count 12.8 H 4.3-11.0 10^3/uL Red Blood Count 5.00 3.80-5.11 10^6/uL Hemoglobin 14.9 11.5-16.0 g/dL Hematocrit 45 35-52 % Mean Corpuscular Volume 90 80-99 fL Mean Corpuscular Hemoglobin 30 25-34 pg Mean Corpuscular Hemoglobin Concent 33 32-36 g/dL Red Cell Distribution Width 13.6 10.0-14.5 % Platelet Count 210 130-400 10^3/uL Mean Platelet Volume 10.4 9.0-12.2 fL Immature Granulocyte % (Auto) 1 % Neutrophils (%) (Auto) 78 H 42-75 % Lymphocytes (%) (Auto) 14 12-44 % Monocytes (%) (Auto) 6 0-12 % Eosinophils (%) (Auto) 1 0-10 % Basophils (%) (Auto) 1 0-10 % Neutrophils # (Auto) 9.9 H 1.8-7.8 10^3/uL Lymphocytes # (Auto) 1.8 1.0-4.0 10^3/uL Monocytes # (Auto) 0.8 0.0-1.0 10^3/uL Eosinophils # (Auto) 0.2 0.0-0.3 10^3/uL Basophils # (Auto) 0.1 0.0-0.1 10^3/uL Immature Granulocyte # (Auto) 0.1 0.0-0.1 10^3/uL Sodium Level 139 135-145 MMOL/L Potassium Level 2.9 L 3.6-5.0 MMOL/L Chloride Level 98 98-107 MMOL/L Carbon Dioxide Level 31 21-32 MMOL/L Anion Gap 10 5-14 MMOL/L Blood Urea Nitrogen 7 7-18 MG/DL Creatinine 0.78 0.60-1.30 MG/DL Estimat Glomerular Filtration Rate 92 BUN/Creatinine Ratio 9 Glucose Level 146 H 70-105 MG/DL Calcium Level 8.8 8.5-10.1 MG/DL Corrected Calcium 8.9 8.5-10.1 MG/DL Total Bilirubin 0.3 0.1-1.0 MG/DL Aspartate Amino Transf (AST/SGOT) 14 5-34 U/L Alanine Aminotransferase (ALT/SGPT) 10 0-55 U/L Alkaline Phosphatase 137 H 40-136 U/L Total Protein 6.6 6.4-8.2 GM/DL Albumin 3.9 3.2-4.5 GM/DL My Orders Orders - TASH ALARCON MD Comprehensive Metabolic Panel (06/30/22 13:59) Ed Iv/Invasive Line Start (06/30/22 13:59) Cbc With Automated Diff (06/30/22 13:59) Ns Iv 1000 Ml (Sodium Chloride 0.9%) (06/30/22 13:59) Vital Signs/I&O 06/30/22 13:47 Temp 36.2 Pulse 86 Resp 21 B/P (MAP) 91/61 (71) Pulse Ox 93 O2 Delivery Nasal Cannula O2 Flow Rate 4.00 Capillary Refill : Progress Note : Progress Note Patient has potential diagnosis of breakthrough seizures, medication non compliance, accidental medication dosing, substance abuse, sepsis, electrolyte imbalance, renal failure, hepatic failure. Initially she did not want to be seen in the ED but then allowed staff to check her in and get IV and blood work. She then told me that she just wanted to be discharged and to go so she would work with clinic and her regular providers to figure out her dosing on medicines. By that point labs had already been sent and she was given some IV fluids for hydration due to borderline soft blood pressure with systolic pressures in the 90s. She kept vacillating between wanting to leave and letting us finish the tests. Finally she said she wanted to go and did not want to wait for any testing. She understood that she could have potential electrolyte imbalance or organ problems that much along the testing and requested that we call her if anything was found. The nursing staff did call to speak to her primary care provider's office and see if they could help set up home health to manage her medicines. Dr. Carbajal, her PCP, was out of the office but Dr. Townsend was covering for him and said she would put in an order for home health to come out and see pt to get medicines set up for her. At the time she was being wheeled up to use the bathroom before leaving [facility] her labs came back showing mild elevation of WBC to 12.8 and low potassium of 2.9. Will discharge pt with instructions for low potassium and potassium rich foods. Encouraged to work with clinic for her medicines and to clarify dosing and timing. The order from Dr. Townsend should help her set up Home health to orga nize her medicine for her. She was discharged in stable condition and was able to walk and ambulate on her own and was alert and oriented x 3. Counseled that she could take over the counter potassium supplements to help bring the low potassium up to more normal level and she could try by increasing potassium rich foods in her diet. She should then be seen next week for recheck to see if the potassium was improving. She refused urine testing so the UA and UDS were canceled. Departure Impression Primary Impression: Seizure disorder Additional Impressions: Accidental medication error Qualified Codes: T50.901A - Poisoning by unspecified drugs, medicaments and biological substances, accidental (unintentional), initial encounter Hypokalemia Disposition: HOME, SELF-CARE Condition: Stable Departure-Patient Inst. Decision time for Depature: 14:33 Referrals: TYSON CARBAJAL DO (PCP) Primary Care Physician Patient Instructions: High Potassium Diet, Hypokalemia (DC), Seizures, Adult ED Add. Discharge Instructions: Try to increase potassium in your diet. work with your doctor's office to have home health set up your medicine for you so you know what to take at what time. All discharge instructions reviewed with patient and/or family. Voiced understanding. TASH ALARCON MD Jun 30, 2022 14:01
[2022-06-30 14:07] LABS: BASOPHILS # (AUTO) 0.1 10^3/uL (0.0-0.1); BASOPHILS % (AUTO) 1 % (0-10); EOSINOPHILS # (AUTO) 0.2 10^3/uL (0.0-0.3); EOSINOPHILS % (AUTO) 1 % (0-10); HEMATOCRIT 45 % (35-52); HEMOGLOBIN 14.9 g/dL (11.5-16.0); LYMPHOCYTES # (AUTO) 1.8 10^3/uL (1.0-4.0); LYMPHOCYTES % (AUTO) 14 % (12-44); MEAN CORPUSCULAR HEMOGLOBIN 30 pg (25-34); MEAN CORPUSCULAR HGB CONC 33 g/dL (32-36); MEAN CORPUSCULAR VOLUME 90 fL (80-99); MEAN PLATELET VOLUME 10.4 fL (9.0-12.2); MONOCYTES # (AUTO) 0.8 10^3/uL (0.0-1.0); MONOCYTES % (AUTO) 6 % (0-12); NEUTROPHILS # (AUTO) 9.9 10^3/uL (1.8-7.8); NEUTROPHILS % (AUTO) 78 % (42-75); PLATELET COUNT 210 10^3/uL (130-400); WHITE BLOOD COUNT 12.8 10^3/uL (4.3-11.0)
[2022-06-30 14:24] LABS: POTASSIUM 2.9 MMOL/L (3.6-5.0)
[2022-06-30 14:25] LABS: ALBUMIN 3.9 GM/DL (3.2-4.5); BILIRUBIN,TOTAL 0.3 MG/DL (0.1-1.0); CALCIUM 8.8 MG/DL (8.5-10.1); CREATININE SERUM 0.78 MG/DL (0.60-1.30); TOTAL PROTEIN 6.6 GM/DL (6.4-8.2)
== END 2022-06-30 14:45 | disposition home or self-care (01) ==
LOC: EDUNIT# 13:44 → ER FS 13:45
DX: G40.909 Epilepsy, unspecified, not intractable, without status epilepticus (principal); T42.6X1A Poisoning by other antiepileptic and sedative-hypnotic drugs, accidental (unintentional), initial encounter; E87.6 Hypokalemia; F17.210 Nicotine dependence, cigarettes, uncomplicated; Z28.310 Unvaccinated for COVID-19
CPT/HCPCS: 36415; 80053; 85025; 99281

== ENCOUNTER 2022-07-24 10:35 | Emergency (ER) | payer MEDICAID ==
[~2022-07-24] VITALS: Ht 157.5 cm; Wt 113.4 kg
--- NOTE | 2022-07-24 11:07 | ED Cough/URI ---
General Chief Complaint: Respiratory Problems Stated Complaint: SOA Nursing Triage Note: PT TO ROOM FS05 VIA W/C FROM [facility] WITH C/O LOW O2. PT HAS HOME O2 AT 4LPM. [facility] DID NOT HAVE PT ON O2 UPON ARRIVAL. PT REPORTS SHE DID NOT HAVE HER HOME O2 WITH HER BECAUSE HER REGULATOR IS BROKEN AND WILL NOT BE REPLACED UNTIL TOMORROW. PT REPORTS THAT SHE HAS TO TAKE HER HOME O2 OFF AT HOME BECAUSE HER CAT CHEWED UP HER LONGER O2 TUBING SO SHE REMOVES HOME O2 WHEN SHE MOVES AROUND THE HOUSE. Source: patient Exam Limitations: no limitations History of Present Illness Date Seen by Provider: Jul 24, 2022 Time Seen by Provider: 10:45 Initial Comments Patient is a 52-year-old female with history of COPD, supplemental oxygen dependent, who presents directly from the clinic with that oxygen saturation in mid 80s after showing up to the clinic today without her home oxygen. Patient apparently had problem with an oxygen regulator on her portable tank. Patient denies increased saturation, and she reports chronic productive cough. Her oxygen saturation is 96 on home O2 level of 4 L. Completed patient's clinic follow-up appointment today was continued ear pain after being treated 10 days ago for bilateral otitis media. Patient completed a full course of cephalexin 3 days ago. She is currently on Singulair and Benadryl. She denies change of hearing, otorrhea, or tinnitus. Patient has not required pain medications no other acute symptoms or complaints Timing/Duration: other Severity/Quality: other Prior Episodes/Possible Cause: other Modifying Factors: Improves With Other Associated Symptoms: other Allergies and Home Medications Allergies Coded Allergies: doxycycline (Unverified Allergy, Mild, nauseated, 08/01/09) spinach (Unverified Allergy, Mild, 08/01/09) alprazolam (Verified Allergy, Unknown, 07/18/19) diazepam (Verified Allergy, Unknown, 07/18/19) sumatriptan (Verified Allergy, Unknown, 07/18/19) Patient Home Medication List Home Medication List Reviewed: Yes Albuterol Sulfate (Ventolin Hfa) 1 Puff Puff, 2 PUFF INH Q4H PRN for COUGH, (Reported) Entered as Reported by: PEREZ HENDERSON on 03/29/20 1200 Albuterol/Ipratropium (Combivent Respimat Inhal [place]) 4 Gm Aero, 2 PUFF IH TID Prescribed by: EMILY DOMÍNGUEZ on 10/03/201913 Azithromycin (Azithromycin) 250 Mg Tablet, 250 MG PO DAILY Prescribed by: SERINA YOUNGBLOOD on 04/14/22222 Furosemide (Furosemide) 40 Mg Tablet, 40 MG PO BID, (Reported) Entered as Reported by: PEREZ HENDERSON on 03/29/201199 Gabapentin (Gabapentin) 600 Mg Tablet, 1,200 MG PO TID, (Reported) Entered as Reported by: PEREZ HENDERSON on 03/29/201199 Glimepiride (Glimepiride) 2 Mg Tablet, 2 MG PO BID, (Reported) Entered as Reported by: PEERZ HENDERSON on 03/29/201199 Haloperidol (Haloperidol) 10 Mg Tablet, 10 MG PO TID, (Reported) Entered as Reported by: PEREZ HENDERSON on 03/29/201199 Hydroxyzine HCl (Hydroxyzine HCl) 25 Mg Tablet, 25 MG PO Q6H PRN for ITCHING Prescribed by: SERINA YOUNGBLOOD on 03/27/222104 Lurasidone HCl (Latuda) 120 Mg Tablet, 120 MG PO 1800, (Reported) Entered as Reported by: PEREZ HENDERSON on 03/29/201199 Lurasidone HCl (Latuda) 40 Mg Tablet, 40 MG PO 1800, (Reported) Entered as Reported by: PEREZ HENDERSON on 03/29/201199 Methocarbamol (Methocarbamol) 500 Mg Tablet, 500 MG PO Q8H Prescribed by: SUELLEN RICO MD on 09/25/212326 Methylprednisolone (Methylprednisolone Dose Pack) 4 Mg Tab.ds.pk, 4 MG PO UD Prescribed by: SERINA YOUNGBLOOD on 04/14/22222 Montelukast Sodium (Montelukast Sodium) 10 Mg Tablet, 10 MG PO DAILY, (Reported) Entered as Reported by: PEREZ HENDERSON on 03/29/201199 Phenytoin Sodium Extended (Phenytoin Sodium Extended) 200 Mg Capsule, 200 MG PO BID, (Reported) Entered as Reported by: PEREZ HENDERSON on 03/29/201199 Prednisone (Prednisone) 20 Mg Tab, 40 MG PO DAILY Prescribed by: TASH ALARCON on 03/17/22 0330 Quetiapine Fumarate (Quetiapine Fumarate) 100 Mg Tablet, 300 MG PO DAILY, (Reported) Entered as Reported by: PEREZ HENDERSON on 03/29/201199 Rivaroxaban (Xarelto) 20 Mg Tablet, 20 MG PO DAILY, (Reported) Entered as Reported by: PEREZ HENDERSON on 03/29/201199 Topiramate (Topiramate) 100 Mg Tablet, 200 MG PO BID, (Reported) Entered as Reported by: PEREZ HENDERSON on 03/29/201199 Trazodone HCl (Trazodone HCl) 100 Mg Tablet, 200 MG PO HS, (Reported) Entered as Reported by: PEREZ HENDERSON on 03/29/201199 Venlafaxine HCl (Venlafaxine HCl ER) 150 Mg Cap.er.24h, 300 MG PO DAILY, (Reported) Entered as Reported by: PEREZ HENDERSON on 03/29/201199 Review of Systems Review of Systems Constitutional: see HPI EENTM: see HPI Respiratory: see HPI Cardiovascular: see HPI Gastrointestinal: see HPI Genitourinary: see HPI : No Musculoskeletal: see HPI Skin: see HPI Psychiatric/Neurological: See HPI Hematologic/Lymphatic: See HPI Immunological/Allergic: see HPI All Other Systems Reviewed Negative Unless Noted: No Past Valadje-Rzfvzp-Vcurhy Hx Patient Social History Tobacco Use?: No Immunizations Up To Date First/Initial COVID19 Vaccinat: 2020 Second COVID19 Vaccination Magdaleno: 2020 Third COVID19 Vaccination Date: 2020 Seasonal Allergies Seasonal Allergies: No Past Medical History Surgery/Hospitalization HX: Mood disorder; COPD; Neuropathy; Frequent falls; HTN; Fibromyalgia; O2 dependent Surgeries: Yes (HIP, suprapubic catheter, Dental) Appendectomy, Gallbladder, Hysterectomy, Orthopedic Respiratory: Yes Asthma, Pneumonia, Chronic Bronchitis, Pulmonary Embolism, COPD, Emphysema Cardiac: Yes (CHF) Neurological: Yes Neuropathy 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 Disorders: No 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 Sexually Transmitted Disease: No HIV/AIDS: No Genitourinary: Yes Kidney Stones, Neurogenic Bladder, UTI-Chronic Gastrointestinal: Yes Abdominal Hernia, Gastroesophageal Reflux, Chronic Constipation, Irritable Bowel Musculoskeletal: Yes Arthritis, Fibromyalgia, Back Injury, Chronic Back Pain, Fractures, Spasms Endocrine: Yes Diabetes, Insulin dep, Hypothyroidsim HEENT: No Hearing Impairment: Hard of Hearing Cancer: Yes Ovarian Psychosocial: Yes ADD/ADHD, Bipolar, Schizophrenia Integumentary: No Blood Disorders: No Family Medical History No Pertinent Family Hx Physical Exam Vital Signs - First Documented 07/24/22 10:37 Temp 36.5 Pulse 77 Resp 16 B/P (MAP) 125/72 (89) Pulse Ox 95 O2 Delivery Nasal Cannula O2 Flow Rate 4.00 Capillary Refill : Less Than 3 Seconds Height: '" Weight: 275lbs. oz. 124.085594sm; 45.00 BMI Method:Stated General Appearance: no apparent distress Eyes: Bilateral Eye Normal Inspection, Bilateral Eye PERRL, Bilateral Eye EOMI HEENT: PERRL/EOMI, normal ENT inspection, other (TMs clear, minimal fluid behind left and right ears, no bulging or retraction.) Neck: non-tender, full range of motion, supple Respiratory: rhonchi Cardiovascular: regular rate, rhythm Gastrointestinal: non tender, soft Extremities: no calf tenderness Neurologic/Psychiatric: alert, oriented x 3 Focused Exam Sepsis Stage: Ruled Out Progress/Results/Core Measures Suspected Sepsis SIRS Temperature: Pulse: 77 Respiratory Rate: 16 Blood Pressure 125 /72 Mean: 89 Results/Orders Vital Signs/I&O 07/24/22 07/24/22 10:37 10:37 Temp 36.5 Pulse 77 Resp 16 B/P (MAP) 125/72 (89) Pulse Ox 95 O2 Delivery Nasal Cannula Nasal Cannula O2 Flow Rate 4.00 4.00 Capillary Refill : Less Than 3 Seconds Blood Pressure Mean: 89 Departure Communication (Admissions) Patient with hypoxia secondary to noncompliance without change to her underlying COPD status Patient with otalgia with resolving ear infections. Recommend continued Singulair, and substituting Claritin for Benadryl. With PCP follow-up as needed. Patient instructed not to do for home without her oxygen. Patient verbalizes understanding agreement discharge instructions prior to departure Impression Primary Impression: Otalgia of both ears Additional Impression: Seasonal allergies Disposition: 01 HOME, SELF-CARE Condition: Stable Departure-Patient Inst. Decision time for Depature: 11:09 Referrals: TYSON KRISHNA DO (PCP/Family) Primary Care Physician Patient Instructions: Fluid in the Ear ED, Seasonal Allergies ED Add. Discharge Instructions: You were evaluated in the emergency department for ear pain. Please continue home medications, holding Benadryl and taking Claritin in its place take Tylenol as needed for pain. Follow-up with your PCP in 7 to 10 days for reevaluation as needed. Do not leave your home without wearing your oxygen. Return to the ED if new or worsening symptoms All discharge instructions reviewed with patient and/or family. Voiced understanding. Scripts Loratadine (Claritin) 10 Mg Capsule 10 MG PO BID, #20 CAP Prov: EMILY DOMÍNGUEZ DO 07/24/22 EMILY DOMÍNGUEZ DO Jul 24, 2022 11:07
[2022-07-24] MEDS ORDERED: LORA10CA PO (11:11)
[2022-07-24 11:16] VITALS: BP 124/69
== END 2022-07-24 11:16 | disposition home or self-care (01) ==
LOC: EDUNIT# 10:35 → ER FS 10:37
DX: R09.02 Hypoxemia (principal); J44.9 Chronic obstructive pulmonary disease, unspecified; H92.03 Otalgia, bilateral; J30.2 Other seasonal allergic rhinitis; Z99.81 Dependence on supplemental oxygen
CPT/HCPCS: 99282

== ENCOUNTER 2022-07-24 18:18 | Emergency (ER) | payer MEDICAID ==
[~2022-07-24] VITALS: Ht 157 cm; Wt 110.0 kg
[~2022-07-24 18:18] MED LIST changes: +LORA10CA PO
[2022-07-24] MEDS ORDERED: methylPREDNISolone 125 MG (Solu-MEDROL) VIAL IVP ONE (18:30)
[2022-07-24] MEDS ORDERED: RT-ALBUTEROL/IPRATROPIUM 3 ML (DUONEB) VIAL INH ONE (18:30)
[2022-07-24 18:34] LABS: BASOPHILS # (AUTO) 0.1 10^3/uL (0.0-0.1); BASOPHILS % (AUTO) 0 % (0-10); EOSINOPHILS # (AUTO) 0.2 10^3/uL (0.0-0.3); EOSINOPHILS % (AUTO) 2 % (0-10); HEMATOCRIT 47 % (35-52); HEMOGLOBIN 14.9 g/dL (11.5-16.0); LYMPHOCYTES # (AUTO) 2.2 10^3/uL (1.0-4.0); LYMPHOCYTES % (AUTO) 18 % (12-44); MEAN CORPUSCULAR HEMOGLOBIN 30 pg (25-34); MEAN CORPUSCULAR HGB CONC 32 g/dL (32-36); MEAN CORPUSCULAR VOLUME 94 fL (80-99); MONOCYTES % (AUTO) 8 % (0-12); NEUTROPHILS % (AUTO) 72 % (42-75); PLATELET COUNT 206 10^3/uL (130-400); WHITE BLOOD COUNT 12.5 10^3/uL (4.3-11.0)
--- NOTE | 2022-07-24 18:50 | ED Respiratory ---
General Chief Complaint: Respiratory Problems Stated Complaint: SOA Nursing Triage Note: Patient has presented to ER by EMS from urgent care - per the patient she went to urgent care this evening for ongoing shortness of breath. Her sats werer 88% on 4 liters at the senior care - EMS called and patient brought to ER for evaluation. Source: patient Exam Limitations: no limitations History of Present Illness Date Seen by Provider: Jul 24, 2022 Time Seen by Provider: 18:30 Initial Comments Patient is a 52-year-old female with COPD well-known to this emergency d [facility] who was last seen in this ER several hours ago for otalgia. Patient was instructed to get Claritin and to resume her oxygen. Patient went to the walk-in clinics this evening stating she had difficulty breathing. She was found to have an O2 saturation mid 80s. Breathing treatment was given and the patient was then instructed to go to the ED. The patient states her symptoms have now improved. She is satting 99% on 4 L. Denies chest pain palpitations fever, chills nausea vomiting or sweats. No other acute symptoms or complaints of note, on ED arrival, patient states she feels better and does not want to be seen. She request to be discharged AGAINST MEDICAL ADVICE. Timing/Duration: just prior to arrival Severity: mild Prior Episodes/Possible Cause: other Modifying Factors: Improves With Other Associated Symptoms: other Allergies and Home Medications Allergies Coded Allergies: doxycycline (Unverified Allergy, Mild, nauseated, 08/01/09) spinach (Unverified Allergy, Mild, 08/01/09) alprazolam (Verified Allergy, Unknown, 07/18/19) diazepam (Verified Allergy, Unknown, 07/18/19) sumatriptan (Verified Allergy, Unknown, 07/18/19) Patient Home Medication List Home Medication List Reviewed: Yes Albuterol Sulfate (Ventolin Hfa) 1 Puff Puff, 2 PUFF INH Q4H PRN for COUGH, (Reported) Entered as Reported by: PEREZ HENDERSON on 03/29/20 1200 Albuterol/Ipratropium (Combivent Respimat Inhal Jean) 4 Gm Aero, 2 PUFF IH TID Prescribed by: EMILY DOMÍNGUEZ on 10/03/201913 Azithromycin (Azithromycin) 250 Mg Tablet, 250 MG PO DAILY Prescribed by: SERINA YOUNGBLOOD on 04/14/22222 Furosemide (Furosemide) 40 Mg Tablet, 40 MG PO BID, (Reported) Entered as Reported by: PEREZ HENDERSON on 03/29/201199 Gabapentin (Gabapentin) 600 Mg Tablet, 1,200 MG PO TID, (Reported) Entered as Reported by: PEREZ HENDERSON on 03/29/201199 Glimepiride (Glimepiride) 2 Mg Tablet, 2 MG PO BID, (Reported) Entered as Reported by: PEREZ HENDERSON on 03/29/201199 Haloperidol (Haloperidol) 10 Mg Tablet, 10 MG PO TID, (Reported) Entered as Reported by: PEREZ HENDERSON on 03/29/201199 Hydroxyzine HCl (Hydroxyzine HCl) 25 Mg Tablet, 25 MG PO Q6H PRN for ITCHING Prescribed by: SERINA YOUNGBLOOD on 03/27/222104 Loratadine (Claritin) 10 Mg Capsule, 10 MG PO BID Prescribed by: EMILY DOMÍNGUEZ on 07/24/22 1111 Lurasidone HCl (Latuda) 120 Mg Tablet, 120 MG PO 1800, (Reported) Entered as Reported by: PEREZ HENDERSON on 03/29/201199 Lurasidone HCl (Latuda) 40 Mg Tablet, 40 MG PO 1800, (Reported) Entered as Reported by: PEREZ HENDERSON on 03/29/201199 Methocarbamol (Methocarbamol) 500 Mg Tablet, 500 MG PO Q8H Prescribed by: SUELLEN RICO MD on 09/25/212326 Methylprednisolone (Methylprednisolone Dose Pack) 4 Mg Tab.ds.pk, 4 MG PO UD Prescribed by: SERINA YOUNGBLOOD on 04/14/22222 Montelukast Sodium (Montelukast Sodium) 10 Mg Tablet, 10 MG PO DAILY, (Reported) Entered as Reported by: PEREZ HENDERSON on 03/29/201199 Phenytoin Sodium Extended (Phenytoin Sodium Extended) 200 Mg Capsule, 200 MG PO BID, (Reported) Entered as Reported by: PEREZ HENDERSON on 03/29/201199 Prednisone (Prednisone) 20 Mg Tab, 40 MG PO DAILY Prescribed by: TASH ALARCON on 03/17/22 0330 Quetiapine Fumarate (Quetiapine Fumarate) 100 Mg Tablet, 300 MG PO DAILY, (Reported) Entered as Reported by: PEREZ HENDERSON on 03/29/201199 Rivaroxaban (Xarelto) 20 Mg Tablet, 20 MG PO DAILY, (Reported) Entered as Reported by: PEREZ HENDERSON on 03/29/201199 Topiramate (Topiramate) 100 Mg Tablet, 200 MG PO BID, (Reported) Entered as Reported by: PEREZ HENDERSON on 03/29/201199 Trazodone HCl (Trazodone HCl) 100 Mg Tablet, 200 MG PO HS, (Reported) Entered as Reported by: PEREZ HENDERSON on 03/29/201199 Venlafaxine HCl (Venlafaxine HCl ER) 150 Mg Cap.er.24h, 300 MG PO DAILY, (Reported) Entered as Reported by: PEREZ HENDERSON on 03/29/201199 Review of Systems Review of Systems Constitutional: see HPI EENTM: see HPI Respiratory: see HPI Cardiovascular: see HPI Gastrointestinal: see HPI Genitourinary: see HPI Musculoskeletal: see HPI Skin: see HPI Psychiatric/Neurological: See HPI Hematologic/Lymphatic: See HPI Immunological/Allergic: see HPI All Other Systems Reviewed Negative Unless Noted: No Past Hsdduyz-Oeainv-Hzardl Hx Patient Social History Tobacco Use?: Yes Tobacco type used: Cigarettes Substance use?: No Alcohol Use?: No Immunizations Up To Date First/Initial COVID19 Vaccinat: 2020 Second COVID19 Vaccination Magdaleno: 2020 Third COVID19 Vaccination Date: 2020 Seasonal Allergies Seasonal Allergies: No Past Medical History Surgery/Hospitalization HX: Mood disorder; COPD; Neuropathy; Frequent falls; HTN; Fibromyalgia; O2 dependent Surgeries: Yes (HIP, suprapubic catheter, Dental) Appendectomy, Gallbladder, Hysterectomy, Orthopedic Respiratory: Yes Asthma, Pneumonia, Chronic Bronchitis, Pulmonary Embolism, COPD, Emphysema Cardiac: Yes (CHF) Neurological: Yes Neuropathy 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 Disorders: No 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 Sexually Transmitted Disease: No HIV/AIDS: No Genitourinary: Yes Kidney Stones, Neurogenic Bladder, UTI-Chronic Gastrointestinal: Yes Abdominal Hernia, Gastroesophageal Reflux, Chronic Constipation, Irritable Bowel Musculoskeletal: Yes Arthritis, Fibromyalgia, Back Injury, Chronic Back Pain, Fractures, Spasms Endocrine: Yes Diabetes, Insulin dep, Hypothyroidsim HEENT: No Hearing Impairment: Hard of Hearing Cancer: Yes Ovarian Psychosocial: Yes ADD/ADHD, Bipolar, Schizophrenia Integumentary: No Blood Disorders: No Family Medical History No Pertinent Family Hx Physical Exam Vital Signs - First Documented 07/24/22 18:33 O2 Delivery Nasal Cannula O2 Flow Rate 4.00 Capillary Refill : Height: '" Weight: 275lbs. oz. [id number]; 44.00 BMI Method:Stated General Appearance: WD/WN, no apparent distress Eyes: Bilateral Eye Normal Inspection, Bilateral Eye PERRL, Bilateral Eye EOMI HEENT: PERRL/EOMI, normal ENT inspection Neck: full range of motion, supple Respiratory: decreased breath sounds, rhonchi Cardiovascular: regular rate, rhythm Gastrointestinal: soft Neurologic/Psychiatric: alert, oriented x 3 Skin: normal color Lymphatic: no adenopathy Focused Exam Sepsis Stage: Ruled Out Progress/Results/Core Measures Suspected Sepsis SIRS Temperature: Pulse: 80 Respiratory Rate: 18 Blood Pressure / Mean: Results/Orders My Orders Orders - EMILY DOMÍNGUEZ DO Cbc With Automated Diff (07/24/22 18:25) Comprehensive Metabolic Panel (07/24/22 18:25) Troponin I Fs (07/24/22 18:25) Chest 1 View Ap/Pa Only (07/24/22 18:25) Probnp Fs (07/24/22 18:25) Ekg Tracing (07/24/22 18:27) Methylprednisolone Sod Succ (Solu-Medrol (07/24/22 18:30) Albuterol/Ipra Inhalation Soln (Duoneb I (07/24/22 18:30) Svn Small Volume Nebulizer (07/24/22 18:27) Vital Signs/I&O 07/24/22 18:33 O2 Delivery Nasal Cannula O2 Flow Rate 4.00 Capillary Refill : Departure Communication (Admissions) Patient declines further assessment treatment of all testing. She states she feels better and does not want to be seen. She will be discharged home AGAINST MEDICAL ADVICE per her request no diagnosis is made Impression Primary Impression: Left against medical advice Disposition: 01 HOME, SELF-CARE Condition: Against Medical Advice Departure-Patient Inst. Decision time for Depature: 18:51 Referrals: TYSNO KRISHNA DO (PCP/Family) Primary Care Physician EMILY DOMÍNGUEZ DO Jul 24, 2022 18:50
--- NOTE | 2022-07-24 18:55 | Diagnostic Imaging Report ---
INDICATION: Shortness of air COMPARISON: 04/14/2022 TECHNIQUE: Single radiograph of the chest dated 07/24/2022. FINDINGS: The cardiac silhouette is within normal limits in size. No significant pulmonary vascular congestion. The lungs are clear of focal pulmonary opacity. No significant pleural effusion. No pneumothorax. No acute osseous abnormality IMPRESSION: Similar-appearing examination without acute cardiopulmonary abnormality. Dictated by: Dictated on workstation # [id number]
[2022-07-24 19:08] LABS: CHLORIDE 96 MMOL/L (98-107); POTASSIUM 3.8 MMOL/L (3.6-5.0); SODIUM 136 MMOL/L (135-145)
[2022-07-24 19:09] LABS: ALANINE AMINOTRANSFERASE 8 U/L (0-55); ALBUMIN 3.8 GM/DL (3.2-4.5); ALKALINE PHOSPHATASE 157 U/L (40-136); BILIRUBIN,TOTAL 0.3 MG/DL (0.1-1.0); BUN/CREATININE RATIO 7; CARBON DIOXIDE 33 MMOL/L (21-32); CREATININE SERUM 0.85 MG/DL (0.60-1.30); GFR ESTIMATED 83; GLUCOSE 114 MG/DL (70-105); TOTAL PROTEIN 6.7 GM/DL (6.4-8.2)
== END 2022-07-24 18:41 | disposition left against medical advice (07) ==
LOC: EDUNIT# 18:18 → ER FS 18:19
DX: R06.02 Shortness of breath (principal); J44.9 Chronic obstructive pulmonary disease, unspecified; F17.210 Nicotine dependence, cigarettes, uncomplicated; Z99.81 Dependence on supplemental oxygen
CPT/HCPCS: 36415; 71045; 80053; 83880; 84484; 85025; 93005

== ENCOUNTER 2022-09-19 03:35 | Emergency (ER) | payer MEDICAID ==
[~2022-09-19] VITALS: Ht 157 cm; Wt 107.0 kg
[2022-09-19 03:40] VITALS: BP 142/97
[2022-09-19] MEDS ORDERED: BUPR1FIL19 SL (03:55)
[2022-09-19] MEDS ORDERED: ERGO1250 PO (03:57)
[2022-09-19] MEDS ORDERED: ONDANSETRON 4 MG/2 ML (SDV) Z0FRAN IVP ONE (04:00)
[2022-09-19 04:01] LABS: BASOPHILS # (AUTO) 0.1 10^3/uL (0.0-0.1); BASOPHILS % (AUTO) 0 % (0-10); EOSINOPHILS # (AUTO) 0.2 10^3/uL (0.0-0.3); EOSINOPHILS % (AUTO) 2 % (0-10); HEMATOCRIT 46 % (35-52); HEMOGLOBIN 14.7 g/dL (11.5-16.0); LYMPHOCYTES # (AUTO) 2.4 10^3/uL (1.0-4.0); LYMPHOCYTES % (AUTO) 20 % (12-44); MEAN CORPUSCULAR HEMOGLOBIN 29 pg (25-34); MEAN CORPUSCULAR HGB CONC 32 g/dL (32-36); MEAN CORPUSCULAR VOLUME 91 fL (80-99); MEAN PLATELET VOLUME 9.9 fL (9.0-12.2); MONOCYTES # (AUTO) 0.8 10^3/uL (0.0-1.0); MONOCYTES % (AUTO) 7 % (0-12); NEUTROPHILS # (AUTO) 8.6 10^3/uL (1.8-7.8); NEUTROPHILS % (AUTO) 71 % (42-75); PLATELET COUNT 206 10^3/uL (130-400); WHITE BLOOD COUNT 12.1 10^3/uL (4.3-11.0)
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
[2022-09-19 04:15] LABS: POTASSIUM 3.8 MMOL/L (3.6-5.0)
[2022-09-19 04:16] LABS: ALBUMIN 3.9 GM/DL (3.2-4.5); BILIRUBIN,TOTAL 0.4 MG/DL (0.1-1.0); CALCIUM 9.4 MG/DL (8.5-10.1); CREATININE SERUM 0.84 MG/DL (0.60-1.30); MAGNESIUM 1.9 MG/DL (1.6-2.4); TOTAL PROTEIN 7.2 GM/DL (6.4-8.2)
[2022-09-19] MEDS ORDERED: CATHETER FLUSH 10 ML SYR IV PRN (04:45)
[2022-09-19] MEDS ORDERED: NS 100 ML (IVPB) BAG IV ONE (04:45)
[2022-09-19] MEDS ORDERED: IOHEXOL 350 MG/ML 100 ML (OMNIPAQUE 350) VIAL IV ONE (04:45)
[2022-09-19] MEDS ORDERED: HOLD METFORMIN - RECEIVED CONTRAST 20 ML VIAL IV SCH (04:45)
[2022-09-19 04:56] LABS: BILIRUBIN,URINE NEGATIVE (NEGATIVE); CLARITY,URINE CLEAR; COLOR,URINE YELLOW; GLUCOSE, URINE (UA) 2+ (NEGATIVE); KETONES,URINE NEGATIVE (NEGATIVE); LEUKOCYTE ESTERASE ,URINE NEGATIVE (NEGATIVE); NITRITE,URINE NEGATIVE (NEGATIVE); PROTEIN,URINE NEGATIVE (NEGATIVE)
[2022-09-19 05:13] LABS: BACTERIA,URINE NEGATIVE /HPF; SQUAMOUS EPITHELIAL CELL,UR 0-2 /HPF; WBC,URINE 0-2 /HPF
[2022-09-19] MEDS ORDERED: LACTATED RINGERS 1,000 ML IV ONE (05:15)
[2022-09-19] MEDS ORDERED: PROMETHAZINE INJ 25 MG/ML (PHENERGAN) AMP IVP ONE (05:15)
[2022-09-19] MEDS ORDERED: METOCLOPRAMIDE INJ 10 MG/2 ML (REGLAN) ONE (05:26)
--- NOTE | 2022-09-19 07:00 | Diagnostic Imaging Report ---
PROCEDURE: CT abdomen and pelvis with contrast. TECHNIQUE: Multiple contiguous axial images were obtained through the abdomen and pelvis after administration of intravenous contrast. Auto Exposure Controls were utilized during the CT exam to meet ALARA standards for radiation dose reduction. All CT scans use one or more of the following dose optimizing techniques: automated exposure control, MA and/or KvP adjustment based on patient size and exam type or iterative reconstruction. INDICATION: Abdominal pain, vomiting. Lung base is clear. Calcifications at the right hemidiaphragm abutting the liver could represent liver calcifications versus calcified pleural plaques. There is hepatic steatosis. Previous cholecystectomy changes noted. Spleen unremarkable. Adrenal glands and pancreas normal. There appears to be an IVC filter in place with adjacent calcifications in the IVC similar to previous examination. Atherosclerotic disease also noted. There is no ascites. No free air. Appendix not seen but no focal inflammatory change noted in the right lower quadrant. There are findings of mild constipation. No obstructive process is seen. Kidneys unremarkable. There is no acute osseous abnormality. Postoperative changes noted within the hips bilaterally. IMPRESSION: 1. Incidental and chronic findings stable from previous CT. No acute process appreciated. Dictated by: Dictated on workstation # [id number]
[2022-09-19] MEDS ORDERED: METOCLOPRAMIDE INJ 10 MG/2 ML (REGLAN) IVP ONE ×2 (07:15→07:30)
[2022-09-19] MEDS ORDERED: ANTACID SUSP 30 ML UDC (MYLANTA) PO ONE (07:15)
[2022-09-19] MEDS ORDERED: LIDOCAINE 2% VISCOUS 15 ML UDC PO ONE (07:15)
[2022-09-19] MEDS ORDERED: METO5TAB75 PO (07:24)
[2022-09-19] MEDS ORDERED: ONDA4TAB11 SL (07:24)
== END 2022-09-19 07:46 | disposition home or self-care (01) ==
LOC: EDUNIT# 03:35 → ER FS 03:37
DX: K59.00 Constipation, unspecified (principal); R11.2 Nausea with vomiting, unspecified; M54.9 Dorsalgia, unspecified; G89.29 Other chronic pain; E66.9 Obesity, unspecified; D72.829 Elevated white blood cell count, unspecified; R74.8 Abnormal levels of other serum enzymes; R79.82 Elevated C-reactive protein (CRP); F17.200 Nicotine dependence, unspecified, uncomplicated; Z79.891 Long term (current) use of opiate analgesic; Z99.81 Dependence on supplemental oxygen; Z68.41 Body mass index [BMI] 40.0-44.9, adult; Z79.02 Long term (current) use of antithrombotics/antiplatelets; Z28.310 Unvaccinated for COVID-19
CPT/HCPCS: 36415; 74177; 80053; 81000; 83690; 83735; 85025; 86141

== ENCOUNTER 2022-09-29 16:03 | Emergency (ER) | payer MEDICAID ==
[~2022-09-29 16:03] MED LIST changes: +BUPR1FIL19 SL; +ERGO1250 PO; +METO5TAB75 PO; +ONDA4TAB11 SL
[2022-09-29] MEDS ORDERED: NS IV 1000 ML 1,000 ML IV STA (16:12)
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
[2022-09-29 16:21] LABS: HEMATOCRIT 47 % (35-52); MEAN CORPUSCULAR HEMOGLOBIN 30 pg (25-34); MEAN CORPUSCULAR VOLUME 93 fL (80-99); WHITE BLOOD COUNT 11.9 10^3/uL (4.3-11.0)
[2022-09-29 16:22] LABS: BASOPHILS % (AUTO) 0 % (0-10); EOSINOPHILS # (AUTO) 0.2 10^3/uL (0.0-0.3); EOSINOPHILS % (AUTO) 2 % (0-10); LYMPHOCYTES % (AUTO) 17 % (12-44); MEAN CORPUSCULAR HGB CONC 32 g/dL (32-36); MEAN PLATELET VOLUME 9.8 fL (9.0-12.2); MONOCYTES # (AUTO) 0.8 X 10^3 (0.0-1.0); MONOCYTES % (AUTO) 7 % (0-12); NEUTROPHILS # (AUTO) 8.8 X 10^3 (1.8-7.8); NEUTROPHILS % (AUTO) 75 % (42-75); PLATELET COUNT 225 10^3/uL (130-400)
[2022-09-29] MEDS ORDERED: predniSONE 20 MG TAB PO ONE (16:30)
[2022-09-29] MEDS ORDERED: RT-ALBUTEROL/IPRATROPIUM 3 ML (DUONEB) VIAL INH ONE (16:30)
[2022-09-29] MEDS ORDERED: CEFDINIR 300 MG (OMNICEF) CAP PO ONE (16:30)
--- NOTE | 2022-09-29 16:33 | Diagnostic Imaging Report ---
CLINICAL INDICATION: Patient with shortness of breath. EXAM: Portable chest x-ray upright view. COMPARISON: Chest x-ray dated 07/24/2022. FINDINGS: Lungs/pleura: Lungs are clear. There is no pneumothorax. There is no pleural effusion. Mediastinum: Unremarkable. Pulmonary vasculature: Unremarkable. Heart: Unremarkable. Bones/extrathoracic soft tissue: There are hypertrophic spurs involving the thoracic spine. IMPRESSION: There is no radiographic evidence of acute cardiopulmonary process. Dictated by: Dictated on workstation # [id number]
[2022-09-29 16:50] LABS: ALBUMIN 4.1 GM/DL (3.2-4.5); BILIRUBIN,TOTAL 0.3 MG/DL (0.1-1.0); CALCIUM 9.1 MG/DL (8.5-10.1); CREATININE SERUM 0.76 MG/DL (0.60-1.30); MAGNESIUM 2.1 MG/DL (1.6-2.4); POTASSIUM 3.9 MMOL/L (3.6-5.0); TOTAL PROTEIN 7.3 GM/DL (6.4-8.2)
[2022-09-29 16:53] LABS: GLUCOSE, URINE (UA) NEGATIVE (NEGATIVE); KETONES,URINE TRACE (NEGATIVE); LEUKOCYTE ESTERASE ,URINE NEGATIVE (NEGATIVE); NITRITE,URINE NEGATIVE (NEGATIVE); PROTEIN,URINE TRACE (NEGATIVE)
[2022-09-29 16:56] LABS: BILIRUBIN,URINE 1+ (NEGATIVE); CLARITY,URINE CLOUDY; COLOR,URINE DARK YELLOW
[2022-09-29 16:57] LABS: BACTERIA,URINE LARGE /HPF; CALCIUM OXALATE CRYSTALS,UR LARGE /LPF; SQUAMOUS EPITHELIAL CELL,UR >50 /HPF; YEAST,URINE FEW /HPF
[2022-09-29] MEDS ORDERED: METH4TAB10 PO (17:05)
[2022-09-29] MEDS ORDERED: CEFD300C3 PO (17:05)
[2022-09-29 18:18] VITALS: BP 119/80
== END 2022-09-29 18:18 | disposition home or self-care (01) ==
LOC: EDUNIT# 16:03 → ER FS 16:04
DX: J43.9 Emphysema, unspecified (principal); N30.90 Cystitis, unspecified without hematuria; E11.9 Type 2 diabetes mellitus without complications; Z99.81 Dependence on supplemental oxygen; Z79.4 Long term (current) use of insulin; Z88.1 Allergy status to other antibiotic agents
CPT/HCPCS: 36415; 71045; 80053; 81000; 83690; 83735; 85025; 86141

== ENCOUNTER 2022-10-07 22:01 | Emergency (ER) | payer MEDICAID, OTHER ==
--- NOTE | 2022-10-07 22:28 | ED Headache ---
General Chief Complaint: Head/Cervical Problems Stated Complaint: HEADACHE/MIGRANE Nursing Triage Note: Pt complaining of a migraine since yesterday morning Source: patient History of Present Illness Date Seen by Provider: October 07, 2022 Time Seen by Provider: 22:10 Initial Comments 52-year-old female patient with history of migraine headache, COPD on home oxygen, diabetes mellitus complaining of left retro-orbital throbbing headache since yesterday morning as a constant pain associated with nausea, blurred vision, photophobia and phonophobia like her previous episodes of migraine headache. Patient states the pain was 7/10 yesterday but rated as 8-9/10 at arrival to the. Patient states she took Maxalt without improvement of her pain. Patient denies fever and chills, vomiting, head injury, focal neurodeficit. Patient states she had blood sugar of 138 at suppertime tonight and did not missed her home medication. Patient has had frequent emergency room visits. Allergies and Home Medications Allergies Coded Allergies: alprazolam (Verified Allergy, Unknown, 10/07/22) diazepam (Verified Allergy, Unknown, 10/07/22) doxycycline (Verified Allergy, Unknown, 10/07/22) sumatriptan (Verified Allergy, Unknown, 10/07/22) Patient Home Medication List Home Medication List Reviewed: Yes Review of Systems Review of Systems Constitutional: no symptoms reported Eyes: See HPI Ears, Nose, Mouth, Throat: no symptoms reported Respiratory: see HPI Cardiovascular: no symptoms reported Gastrointestinal: see HPI Genitourinary: no symptoms reported Musculoskeletal: no symptoms reported Skin: no symptoms reported Psychiatric/Neurological: No Symptoms Reported All Other Systems Reviewed Negative Unless Noted: Yes Past Xdalsoe-Gplnpz-Eulbgo Hx Patient Social History Tobacco Use?: Yes Tobacco type used: Cigarettes Smoking Status: Current Everyday Smoker Use of E-Cig and/or Vaping dev: No Substance use?: No Alcohol Use?: No Pt feels they are or have been: No Physical Exam Vital Signs Vital Signs - First Documented 10/07/22 22:06 Temp 36.4 Pulse 88 Resp 20 B/P (MAP) 144/83 (103) Pulse Ox 94 O2 Delivery Nasal Cannula O2 Flow Rate 5.00 Capillary Refill : Less Than 3 Seconds Height, Weight, BMI Height: '" Weight: lbs. oz. kg; BMI Method: General Appearance: WD/WN, mild distress HEENT: PERRL/EOMI, normal ENT inspection, pharynx normal Neck: non-tender, full range of motion, supple, normal inspection Cardiovascular: normal peripheral pulses, regular rate, rhythm, no edema, no gallop, no JVD, no murmur Respiratory: chest non-tender, lungs clear, normal breath sounds, no respiratory distress, no accessory muscle use Gastrointestinal: normal bowel sounds, non tender, soft, no organomegaly, no pulsatile mass Back: normal inspection, no CVA tenderness, no vertebral tenderness Extremities: normal range of motion, non-tender, normal inspection, no pedal edema, no calf tenderness, normal capillary refill, pelvis stable Psychiatric: alert, oriented x 3 Crainal Nerves: normal hearing, normal speech, PERRL Coordination/Gait: normal finger to nose, normal gait Motor/Sensory: no motor deficit, no sensory deficit, no pronator drift, negative Babinski's sign Reflexes: 3+ Bicep (R), 3+ Bicep (L), 3+ Tricep (R), 3+ Tricep (L), 3+ Knee (R), 3+ Knee (L), 3+ Ankle (R), 3+ Ankle (L) Skin: normal color, warm/dry Lymphatic: no adenopathy Progress/Results/Core Measures Results/Orders My Orders Orders - KASI KEN MD Ketorolac Injection (Toradol Injection) (10/07/22 22:30) Prochlorperazine Tablet (Compazine Table (10/07/22 22:30) Diphenhydramine Injection (Benadryl Inje (10/07/22 22:30) Vital Signs/I&O 10/07/22 22:06 Temp 36.4 Pulse 88 Resp 20 B/P (MAP) 144/83 (103) Pulse Ox 94 O2 Delivery Nasal Cannula O2 Flow Rate 5.00 Blood Pressure Mean: 103 Progress Progress Note : Progress Note Patient with history of migraine headache and recurrent episodes of headache since yesterday that did not get better with home medication. Patient had unremarkable physical exam and vital sign. Patient treated with Toradol and Benadryl IM and Compazine p.o. with improvement of her condition. Patient advised to continue home medication and follow-up with her primary care physician or return to ER as needed. Departure Impression Primary Impression: Migraine headache without aura Qualified Codes: G43.009 - Migraine without aura, not intractable, without status migrainosus Disposition: HOME, SELF-CARE Condition: Improved Departure-Patient Inst. Decision time for Depature: 22:45 Referrals: MURRAY ODELL MD (PCP) Primary Care Physician Patient Instructions: Migraines in Adults Add. Discharge Instructions: Continue home medication Follow-up with your primary care physician or return to ER as needed All discharge instructions reviewed with patient and/or family. Voiced understanding. KASI KEN MD October 07, 2022 22:28
[2022-10-07] MEDS ORDERED: PROCHLORPERAZINE 10 MG TAB (COMPAZINE) PO ONE (22:30)
[2022-10-07] MEDS ORDERED: KETOROLAC 60 MG/2 ML VIAL IM ONE (22:30)
[2022-10-07] MEDS ORDERED: diphenhydrAMINE 50 MG/ML INJ (BENADRYL) IM ONE (22:30)
[2022-10-07 22:32] VITALS: BP 144/83
== END 2022-10-07 22:33 | disposition home or self-care (01) ==
LOC: ER FS 22:04 → MERGE 22:04 → ER FS 22:33
DX: G43.009 Migraine without aura, not intractable, without status migrainosus (principal); J44.9 Chronic obstructive pulmonary disease, unspecified; E11.9 Type 2 diabetes mellitus without complications; F17.210 Nicotine dependence, cigarettes, uncomplicated; Z99.81 Dependence on supplemental oxygen; Z28.310 Unvaccinated for COVID-19
CPT/HCPCS: 99284

== ENCOUNTER 2022-10-08 22:31 | Emergency (ER) | payer MEDICAID ==
[2022-10-08] MEDS ORDERED: diphenhydrAMINE 25 MG TAB (BENADRYL) PO STA (22:37)
[2022-10-08] MEDS ORDERED: ORPHENADRINE 60 MG/2 ML (NORFLEX) AMP (ED ONLY) IM STA (22:37)
[2022-10-08] MEDS ORDERED: PROCHLORPERAZINE 10 MG TAB (COMPAZINE) PO STA (22:37)
[2022-10-08] MEDS ORDERED: KETOROLAC 60 MG/2 ML VIAL IM STA (22:37)
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
[2022-10-08 22:47] VITALS: BP 138/91
== END 2022-10-08 22:47 | disposition home or self-care (01) ==
LOC: EDUNIT# 22:31 → ER FS 22:33
DX: G43.109 Migraine with aura, not intractable, without status migrainosus (principal); M54.50 Low back pain, unspecified; G89.29 Other chronic pain; E66.9 Obesity, unspecified; F17.210 Nicotine dependence, cigarettes, uncomplicated; Z68.41 Body mass index [BMI] 40.0-44.9, adult; Z28.310 Unvaccinated for COVID-19
CPT/HCPCS: 99284

== ENCOUNTER 2022-11-19 00:21 | Emergency (ER) | payer MEDICAID ==
[~2022-11-19 00:21] MED LIST changes: +POTA-330 PO; -POTA-51 PO
[2022-11-19] MEDS ORDERED: PROMETHAZINE INJ 25 MG/ML (PHENERGAN) AMP IM ONE (00:30)
[2022-11-19] MEDS ORDERED: PROMETHAZINE INJ 25 MG/ML (PHENERGAN) AMP IVP ONE (00:30)
[2022-11-19] MEDS ORDERED: diphenhydrAMINE 50 MG/ML INJ (BENADRYL) IM ONE (00:30)
[2022-11-19] MEDS ORDERED: KETOROLAC 30 MG/ML VIAL IM ONE (00:30)
[2022-11-19 00:40] VITALS: BP 142/99
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
== END 2022-11-19 00:46 | disposition home or self-care (01) ==
LOC: EDUNIT# 00:21 → ER FS 00:23
DX: G43.909 Migraine, unspecified, not intractable, without status migrainosus (principal); F17.210 Nicotine dependence, cigarettes, uncomplicated; E11.9 Type 2 diabetes mellitus without complications; J43.9 Emphysema, unspecified; Z99.81 Dependence on supplemental oxygen; Z79.4 Long term (current) use of insulin
CPT/HCPCS: 99284

== ENCOUNTER 2022-11-22 13:32 | Emergency (ER) | payer MEDICAID ==
[~2022-11-22] VITALS: Ht 157.4 cm; Wt 105.0 kg
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
[2022-11-22] MEDS ORDERED: RT-ALBUTEROL/IPRATROPIUM 3 ML (DUONEB) VIAL INH ONE (14:30)
[2022-11-22 14:40] LABS: BASOPHILS % (AUTO) 0 % (0-10); EOSINOPHILS # (AUTO) 0.2 10^3/uL (0.0-0.3); EOSINOPHILS % (AUTO) 2 % (0-10); HEMATOCRIT 43 % (35-52); HEMOGLOBIN 13.6 g/dL (11.5-16.0); LYMPHOCYTES # (AUTO) 2.5 X 10^3 (1.0-4.0); LYMPHOCYTES % (AUTO) 21 % (12-44); MEAN CORPUSCULAR HEMOGLOBIN 30 pg (25-34); MEAN CORPUSCULAR HGB CONC 32 g/dL (32-36); MEAN CORPUSCULAR VOLUME 96 fL (80-99); MEAN PLATELET VOLUME 9.4 fL (9.0-12.2); MONOCYTES # (AUTO) 0.8 X 10^3 (0.0-1.0); MONOCYTES % (AUTO) 7 % (0-12); NEUTROPHILS # (AUTO) 8.1 X 10^3 (1.8-7.8); NEUTROPHILS % (AUTO) 69 % (42-75); PLATELET COUNT 188 10^3/uL (130-400); WHITE BLOOD COUNT 11.7 10^3/uL (4.3-11.0)
[2022-11-22 14:50] LABS: ALBUMIN 3.4 GM/DL (3.2-4.5); CHLORIDE 101 MMOL/L (98-107); POTASSIUM 3.8 MMOL/L (3.6-5.0); SODIUM 139 MMOL/L (135-145)
[2022-11-22 14:51] LABS: CALCIUM 8.8 MG/DL (8.5-10.1)
[2022-11-22 14:52] LABS: GLUCOSE 110 MG/DL (70-105)
[2022-11-22 14:53] LABS: TOTAL PROTEIN 6.3 GM/DL (6.4-8.2)
[2022-11-22 14:54] LABS: CARBON DIOXIDE 32 MMOL/L (21-32)
[2022-11-22 14:56] LABS: ALKALINE PHOSPHATASE 125 U/L (40-136); CREATININE SERUM 0.79 MG/DL (0.60-1.30); GFR ESTIMATED 91
[2022-11-22 14:57] LABS: BUN/CREATININE RATIO 13
--- NOTE | 2022-11-22 14:57 | Diagnostic Imaging Report ---
EXAMINATION: Chest, 1 view. HISTORY: Cough. Shortness of breath. COMPARISON: 09/29/2022. FINDINGS: The lung volumes are normal. No focal consolidation is seen. There is bronchial wall thickening. No large pleural effusion or pneumothorax is seen. The cardiomediastinal silhouette is normal in size and contour. No acute osseous abnormality is seen. IMPRESSION: Bronchial wall thickening which can be seen with bronchitis/bronchiolitis. No focal consolidations. Dictated by: Dictated on workstation # [id number]
[2022-11-22 14:59] LABS: ALANINE AMINOTRANSFERASE 10 U/L (0-55); MAGNESIUM 1.9 MG/DL (1.6-2.4)
[2022-11-22 15:28] LABS: BILIRUBIN,TOTAL < 1.0 MG/DL (0.1-1.0)
[2022-11-22] MEDS ORDERED: KETOROLAC 30 MG/ML VIAL IVP ONE (15:30)
[2022-11-22] MEDS ORDERED: AMOX1TAB12 PO (15:51)
[2022-11-22 16:07] VITALS: BP 115/81
== END 2022-11-22 16:07 | disposition home or self-care (01) ==
LOC: EDUNIT# 13:32 → ER 13:34
DX: J44.9 Chronic obstructive pulmonary disease, unspecified (principal); E11.9 Type 2 diabetes mellitus without complications; I11.0 Hypertensive heart disease with heart failure; I50.9 Heart failure, unspecified; F17.210 Nicotine dependence, cigarettes, uncomplicated; F17.290 Nicotine dependence, other tobacco product, uncomplicated; Z79.4 Long term (current) use of insulin; Z99.81 Dependence on supplemental oxygen; Z79.52 Long term (current) use of systemic steroids; Z79.899 Other long term (current) drug therapy; Z88.1 Allergy status to other antibiotic agents
CPT/HCPCS: 36415; 71045; 80053; 83735; 83880; 84484; 85025; 86141; 93005; 94640

== ENCOUNTER 2022-12-19 19:35 | Emergency (ER) | payer MEDICAID ==
--- NOTE | 2022-12-19 20:18 | Diagnostic Imaging Report ---
INDICATION: Injured in fall presents with left knee pain COMPARISONS: 10/27/2020 FINDINGS: 2 views of the left knee show an intramedullary rosio traversing the distal aspect of the femur with 2 separate cortical screws. There is otherwise no evidence of new or healing fracture, bony destruction or remodeling. No joint effusion seen. Overall no adverse interval changes since 10/27/2020. IMPRESSION: No fracture or subluxation seen. Dictated by: Dictated on workstation # [id number]
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
[2022-12-19 20:26] VITALS: BP 144/89
== END 2022-12-19 20:26 | disposition home or self-care (01) ==
LOC: EDUNIT# 19:35 → ER FS 19:38
DX: S80.212A Abrasion, left knee, initial encounter (principal); S80.812A Abrasion, left lower leg, initial encounter; F17.210 Nicotine dependence, cigarettes, uncomplicated; W18.30XA Fall on same level, unspecified, initial encounter; Y92.009 Unspecified place in unspecified non-institutional (private) residence as the place of occurrence of the external cause
CPT/HCPCS: 73562

== ENCOUNTER 2023-03-19 22:59 | Emergency (ER) | payer MEDICAID ==
[2023-03-19] MEDS ORDERED: ONDANSETRON INJECTION 4 MG/2 ML (SDV) IVP STA (23:07)
[2023-03-19] MEDS ORDERED: RT-Ipratropium/Albuterol NEB 3 ML VIAL INH STA (23:07)
[2023-03-19] MEDS ORDERED: KETOROLAC INJ 15 MG/ML VIAL IVP STA (23:09)
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
[2023-03-19 23:18] LABS: BASOPHILS % (AUTO) 0 % (0-10); EOSINOPHILS # (AUTO) 0.1 10^3/uL (0.0-0.3); EOSINOPHILS % (AUTO) 1 % (0-10); HEMATOCRIT 51 % (35-52); HEMOGLOBIN 15.7 g/dL (11.5-16.0); LYMPHOCYTES # (AUTO) 2.2 10^3/uL (1.0-4.0); LYMPHOCYTES % (AUTO) 23 % (12-44); MEAN CORPUSCULAR HEMOGLOBIN 30 pg (25-34); MEAN CORPUSCULAR HGB CONC 31 g/dL (32-36); MEAN CORPUSCULAR VOLUME 95 fL (80-99); MEAN PLATELET VOLUME 10.3 fL (9.0-12.2); MONOCYTES # (AUTO) 0.4 10^3/uL (0.0-1.0); MONOCYTES % (AUTO) 5 % (0-12); NEUTROPHILS # (AUTO) 6.8 10^3/uL (1.8-7.8); NEUTROPHILS % (AUTO) 71 % (42-75); PLATELET COUNT 192 10^3/uL (130-400); WHITE BLOOD COUNT 9.6 10^3/uL (4.3-11.0)
[2023-03-19] MEDS ORDERED: LAMO200T5 PO (23:34)
[2023-03-19] MEDS ORDERED: CYCL10TA25 PO (23:34)
[2023-03-19] MEDS ORDERED: TIRZ5PEN (23:34)
[2023-03-19] MEDS ORDERED: MTP25TSR PO (23:34)
[2023-03-19] MEDS ORDERED: TRAZ300T3 PO (23:34)
[2023-03-19] MEDS ORDERED: LURA80TA4 PO (23:34)
[2023-03-19 23:36] LABS: INR 1.7 (0.8-1.4)
[2023-03-19] MEDS ORDERED: IPRA3AMP31 (23:39)
[2023-03-19] MEDS ORDERED: ATOR10TA66 PO (23:39)
[2023-03-19 23:53] LABS: ALANINE AMINOTRANSFERASE 7 U/L (0-55); ALKALINE PHOSPHATASE 136 U/L (40-136); BILIRUBIN,TOTAL 0.3 MG/DL (0.1-1.0); BUN/CREATININE RATIO 14; CALCIUM 9.1 MG/DL (8.5-10.1); CARBON DIOXIDE 29 MMOL/L (21-32); CHLORIDE 100 MMOL/L (98-107); GFR ESTIMATED 90; GLUCOSE 138 MG/DL (70-105); MAGNESIUM 2.1 MG/DL (1.6-2.4); SODIUM 139 MMOL/L (135-145)
[2023-03-19 23:54] LABS: ALBUMIN 3.8 GM/DL (3.2-4.5); LIPASE 21 U/L (8-78); TOTAL PROTEIN 7.1 GM/DL (6.4-8.2)
[2023-03-20] MEDS ORDERED: dexAMETHasone INJ 10 MG/ML 1 ML VIAL IV STA (00:05)
[2023-03-20] MEDS ORDERED: ONDA4TAB11 PO (00:05)
[2023-03-20 00:20] VITALS: BP 99/62
--- NOTE | 2023-03-20 07:45 | Diagnostic Imaging Report ---
PATIENT HISTORY: chest pain. TECHNIQUE: Single frontal view of the chest. COMPARISON: 11/22/2022 FINDINGS: The lung volumes are normal. No focal consolidation is seen. No large pleural effusion or pneumothorax is seen. The cardiomediastinal silhouette is normal in size and contour. No acute osseous abnormality is seen. IMPRESSION: No acute pulmonary abnormality seen. Dictated by: Dictated on workstation # [id number]
== END 2023-03-20 00:32 | disposition home or self-care (01) ==
LOC: EDUNIT# 22:59 → ER FS 23:00
DX: J44.1 Chronic obstructive pulmonary disease with (acute) exacerbation (principal); R07.89 Other chest pain; R10.13 Epigastric pain; R11.2 Nausea with vomiting, unspecified; F17.210 Nicotine dependence, cigarettes, uncomplicated; Z99.81 Dependence on supplemental oxygen
CPT/HCPCS: 36415; 71045; 80053; 83690; 83735; 83880; 84484; 85025; 85610; 85730; 93005; 93041; 94640

== ENCOUNTER 2023-03-24 00:13 | Emergency (ER) | payer MEDICAID ==
[~2023-03-24] VITALS: Ht 157.4 cm; Wt 105.2 kg
[~2023-03-24 00:13] MED LIST changes: +ATOR10TA66 PO; +IPRA3AMP31; +LAMO200T5 PO; +LURA80TA4 PO; +MTP25TSR PO; +TIRZ5PEN; +TRAZ300T3 PO
[2023-03-24] MEDS ORDERED: KETOROLAC INJ 15 MG/ML VIAL IVP STA (00:22)
[2023-03-24] MEDS ORDERED: fentaNYL INJECTION 100 MCG/2 ML VIAL IVP STA (00:22)
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
[2023-03-24 00:31] LABS: BASOPHILS # (AUTO) 0.1 10^3/uL (0.0-0.1); BASOPHILS % (AUTO) 0 % (0-10); EOSINOPHILS # (AUTO) 0.2 10^3/uL (0.0-0.3); EOSINOPHILS % (AUTO) 1 % (0-10); HEMATOCRIT 47 % (35-52); LYMPHOCYTES # (AUTO) 3.3 10^3/uL (1.0-4.0); LYMPHOCYTES % (AUTO) 22 % (12-44); MEAN CORPUSCULAR HEMOGLOBIN 30 pg (25-34); MEAN CORPUSCULAR HGB CONC 32 g/dL (32-36); MEAN CORPUSCULAR VOLUME 94 fL (80-99); MEAN PLATELET VOLUME 10.5 fL (9.0-12.2); MONOCYTES % (AUTO) 7 % (0-12); NEUTROPHILS # (AUTO) 10.6 10^3/uL (1.8-7.8); NEUTROPHILS % (AUTO) 70 % (42-75); PLATELET COUNT 196 10^3/uL (130-400); WHITE BLOOD COUNT 15.2 10^3/uL (4.3-11.0)
[2023-03-24 00:39] LABS: INR 1.4 (0.8-1.4); PROTHROMBIN TIME PATIENT 17.9 SEC (12.2-14.7)
[2023-03-24 00:45] LABS: BILIRUBIN,TOTAL 0.2 MG/DL (0.1-1.0); CALCIUM 8.8 MG/DL (8.5-10.1); CARBON DIOXIDE 30 MMOL/L (21-32); CHLORIDE 100 MMOL/L (98-107); LIPASE 26 U/L (8-78); MAGNESIUM 2.2 MG/DL (1.6-2.4); POTASSIUM 4.6 MMOL/L (3.6-5.0); SODIUM 137 MMOL/L (135-145); TOTAL PROTEIN 6.7 GM/DL (6.4-8.2)
[2023-03-24 00:49] LABS: BUN/CREATININE RATIO 11; CREATININE SERUM 0.71 MG/DL (0.60-1.30); GFR ESTIMATED 104; GLUCOSE 118 MG/DL (70-105)
[2023-03-24 00:50] LABS: ALANINE AMINOTRANSFERASE 7 U/L (0-55); ALBUMIN 3.5 GM/DL (3.2-4.5); ALKALINE PHOSPHATASE 118 U/L (40-136)
[2023-03-24 00:54] LABS: EOSINOPHILS % (MANUAL) 3 %; LYMPHOCYTES % (MANUAL) 14 %; MONOCYTES % (MANUAL) 6 %; NEUTROPHILS % (MANUAL) 77 %
[2023-03-24 01:13] VITALS: BP 119/52
--- NOTE | 2023-03-24 07:35 | Diagnostic Imaging Report ---
INDICATION: Chest pain. Comparison is made with prior exam of 03/19/2023. FINDINGS: The heart size, mediastinal configuration, and pulmonary vascularity are within normal limits. There is no pleural effusion, pneumothorax, or pneumonia. The osseous structures are unremarkable. IMPRESSION: No acute cardiopulmonary abnormality. Dictated by: Dictated on workstation # [id number]
== END 2023-03-24 01:13 | disposition home or self-care (01) ==
LOC: EDUNIT# 00:13 → ER FS 00:15
DX: R07.89 Other chest pain (principal); D72.829 Elevated white blood cell count, unspecified; F17.210 Nicotine dependence, cigarettes, uncomplicated; J43.9 Emphysema, unspecified; E66.9 Obesity, unspecified; Z68.41 Body mass index [BMI] 40.0-44.9, adult; Z99.81 Dependence on supplemental oxygen
CPT/HCPCS: 36415; 71045; 80053; 83690; 83735; 83880; 84484; 85007; 85027; 85610; 85730; 93005; 93041

== ENCOUNTER 2023-04-26 07:57 | Emergency (ER) | payer MEDICAID ==
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
[2023-04-26] MEDS ORDERED: diphenhydrAMINE 25 MG TABLET PO ONE ×2 (08:07→08:15)
== END 2023-04-26 08:40 | disposition home or self-care (01) ==
LOC: EDUNIT# 07:57 → ER FS 07:58
DX: F15.20 Other stimulant dependence, uncomplicated (principal)
CPT/HCPCS: 99283